=== PATIENT | male | born 1960 | race African-American/Black ===

== ENCOUNTER 2016-08-28 10:38 | Inpatient (IN) | payer OTHER ==
[2016-08-28 10:53] VITALS: BMI 23.7
--- NOTE | 2016-08-28 12:01 | PDOC ---
History of Present Illness - General Chief Complaint: Edema Stated Complaint: SWOLLEN LT LEG/FOOT Time Seen by Provider: 08/28/16 11:45 History Source: Patient Exam Limitations: No Limitations - History of Present Illness Initial Comments: CHIEF COMPLAINT: 56 y/o afebrile male with no significant PMH (Poor medical care; unknown last seen by doctor) c/o worsening left toe and leg swelling over the past 1 week. HISTORY OF PRESENT ILLNESS: The patient states he had a blister on the tip of his left big toe that popped. He has been soaking it, cleaning it and keeping it covered. However, about 1 week ago the foot started getting swollen and today it's up his entire lower left leg. He also admits to no feeling at the tip of his affected toe. He denies f/c, n/v/d, CP, SOB, abd pain, back pain, hematuria, dysuria, difficulty walking. Vital signs on arrival are notable for pulse of 97. REVIEW OF SYSTEMS: GENERAL/CONSTITUTIONAL: No fever/chills. No weakness. No weight change. HEAD, EYES, EARS, NOSE AND THROAT: No change in vision. No ear pain or discharge. No sore throat. CARDIOVASCULAR: No chest pain or shortness of breath. RESPIRATORY: No cough, wheezing, or hemoptysis. GASTROINTESTINAL: No abd pain, nausea, vomiting, diarrhea. GENITOURINARY: No dysuria, frequency, or change in urination. MUSCULOSKELETAL: +left big toe pain and swelling. +left leg swelling. No neck or back pain. SKIN: No rash or easy bruising. NEUROLOGIC: No headache, vertigo, loss of consciousness, or loss of sensation. PHYSICAL EXAM: GENERAL: The patient is awake, alert, and fully oriented, in no acute distress. He is well appearing and ambulatory. HEAD: Normal with no signs of trauma. ENT: Pupils equal, round and reactive to light, extraocular movements intact, sclera anicteric, conjunctiva clear. Neck supple. EXTREMITIES: Normal range of motion. Left foot and lower extremity up to left knee is moderately edematous as compared to right leg with 2+ pitting edema. The affected leg is warm and the affected left foot is erythematous and warm with 2+ dorsalis pedis pulse. THe tip of left first toe is necrotic and without sensation to touch. FROM of toes and leg. No streaking. No calf pain. NEUROLOGICAL: Normal speech, normal gait. CN II-XII grossly intact. PSYCH: Normal mood, normal affect. SKIN: Warm, dry, normal turgor, no rashes or lesions noted. Past History - Past Medical History Allergies/Adverse Reactions: Allergies Allergy/AdvReac Type Severity Reaction Status Date / Time No Known Allergies Allergy Verified 08/28/16 10:47 Other medical history: denies - Psycho/Social/Smoking Cessation Hx Suicidal Ideation: No Smoking History: Never smoked *Physical Exam - Vital Signs Last Vital Signs Temp Pulse Resp BP Pulse Ox 98.2 F 97 H 16 175/102 98 08/28/16 10:48 08/28/16 10:48 08/28/16 10:48 08/28/16 10:48 08/28/16 10:48 ED Treatment Course - LABORATORY CBC & Chemistry Diagram: 08/28/16 12:17 08/28/16 12:17 - RADIOLOGY Radiology Studies Ordered: Category Date Time Status TOE(S) LEFT [RAD] Stat Radiology 08/28/16 11:55 Ordered Medical Decision Making - Medical Decision Making A/P: 56 y/o male with left LE cellulitis with possible left toe necrosis. Plan is as follows: 1. Labs 2. Xray r/o osteomyelitis. Glucose = 377. Ordered IV fluids Xray left toe IMPRESSION: No acute bony abnormalities are seen. No evidence of bony destructive changes. No radiopaque foreign body, air is seen in the soft tissues. Started the patient on IV zosyn Ordered CRP and ESR Will admit for hyperglycemia, necrotic toe (will most likely lose). Paged Dr. Felder as the patient has no PCP. The patient has not seen a doctor in a "very long time". Spoke with Dr. Felder and she accepts admission. Wants consults with Dr. jaime and Dr. Cedeno. Pt made aware of the plan. *DC/Admit/Observation/Transfer Diagnosis at time of Disposition: Toe infection, Gangrenous toe, Hyperglycemia Cellulitis Qualifiers: Site of cellulitis: extremity Site of cellulitis of extremity: lower extremity Laterality: left Qualified Code(s): L03.116 - Cellulitis of left lower limb - Discharge Dispostion Condition at time of disposition: Stable Admit: Yes
--- NOTE | 2016-08-28 12:02 | PDOC ---
*Physical Exam - Vital Signs Last Vital Signs Temp Pulse Resp BP Pulse Ox 98.2 F 97 H 16 175/102 98 08/28/16 10:48 08/28/16 10:48 08/28/16 10:48 08/28/16 10:48 08/28/16 10:48 - Physical Exam Comments: 08/28/16 12:00 The patient was examined by [BRIGETTE Browning] under my direct supervision. I personally evaluated the patient. I concur with the above findings and the plan of care. ED Treatment Course - LABORATORY CBC & Chemistry Diagram: 08/29/16 07:00 08/29/16 07:00 *DC/Admit/Observation/Transfer Diagnosis at time of Disposition: Toe infection, Cellulitis, Gangrenous toe, Hyperglycemia - Discharge Dispostion Disposition: HOME Condition at time of disposition: Fair - Prescriptions
[2016-08-28 12:46] LABS: BASOPHIL 0.8 % (0-2.0); EOSINOPHIL 1.2 % (0-4.5); MCH 26.5 pg (25.7-33.7); MCHC 32.7 g/dl (32.0-35.9); MEAN CELL VOLUME 80.9 fl (80-96); MEAN PLT VOLUME 7.4 fl (7.5-11.1); PLATELET COUNT 300 K/MM3 (134-434); RDW 12.3 % (11.9-15.9); WHITE BLOOD COUNT 7.8 K/mm3 (4.0-10.0)
[2016-08-28 13:12] LABS: ALK PHOS 98 U/L (45-117); ANION GAP 9 (8-16); BILIRUBIN,TOTAL 0.4 mg/dL (0.2-1.0); CO2 28 mmol/L (21-32); CREATININE 0.9 mg/dL (0.7-1.3); SGOT/AST 11 U/L (15-37); SGPT/ALT 18 U/L (12-78)
[2016-08-28 13:33] LABS: GLUCOSE,RANDOM 377 mg/dL (74-106)
[2016-08-28] MEDS ORDERED: SODIUM CHLORIDE 1,000 ML IV STA (13:45)
[2016-08-28] MEDS ORDERED: PIPERACILLIN/TAZOB 3.375 GM/50 ML PRE-DOCKED IVPB ONE (14:09)
[2016-08-28] MEDS ORDERED: PIPERACILLIN/TAZOB 3.375 GM 50 ML IVPB ONE (14:34)
--- NOTE | 2016-08-28 16:34 | CONSULT ---
Consult Consult Specialty:: infectious diseases Referred by:: Reason for Consultation:: toe cellulitis - History of Present Illness Chief Complaint: non healing wound of the toe History of Present Illness: 56ym admitted with blister tip of left big toe over past week was soaking it and has not improved worsening discoloration and spread of infection to leg, present to er for evaluation. patient mentions that he has been observing the progress of the wound for quite some time and was found that the toe is not healing and decided to come to the hospital examining him the patient looks like has very poor blood supply in the foot and i have discussed with him the need for angiogram he has necrotic discoloration on the front of the toe patient currently stable has no other issues - History Source History Provided By: Patient Limitations to Obtaining History: No Limitations - Smoking History Smoking history: Never smoked Home Medications - Allergies Allergies/Adverse Reactions: Allergies Allergy/AdvReac Type Severity Reaction Status Date / Time No Known Allergies Allergy Verified 08/28/16 10:47 - Home Medications Home Medications: Ambulatory Orders NK [No Known Home Medication] 08/28/16 Review of Systems - Review of Systems Constitutional: reports: No Symptoms Eyes: reports: No Symptoms HENT: reports: No Symptoms Neck: reports: No Symptoms Cardiovascular: reports: No Symptoms Respiratory: reports: No Symptoms Gastrointestinal: reports: No Symptoms Genitourinary: reports: No Symptoms Musculoskeletal: reports: Other (non healing ulcer of the great toe) Neurological: reports: No Symptoms Endocrine: reports: No Symptoms Hematology/Lymphatic: reports: No Symptoms Psychiatric: reports: No Symptoms Physical Exam Vital Signs: Vital Signs Temperature 98.3 F 08/28/16 16:13 Pulse Rate 87 08/28/16 16:13 Respiratory Rate 20 08/28/16 16:13 Blood Pressure 128/80 08/28/16 16:13 O2 Sat by Pulse Oximetry (%) 98 08/28/16 16:13 Constitutional: Yes: No Distress, Calm Eyes: Yes: Conjunctiva Clear Neck: Yes: Supple Cardiovascular: Yes: Regular Rate and Rhythm Respiratory: Yes: Regular, CTA Bilaterally Gastrointestinal: Yes: Normal Bowel Sounds, Soft Musculoskeletal: Yes: Other Extremities: Yes: Erythema (of the great toe) Integumentary: Yes: Erythema (of the great toe) Neurological: Yes: Alert, Oriented Psychiatric: Yes: Alert Imaging - Results X-ray: Report Reviewed, Image Reviewed Assessment/Plan - Problems (1) Gangrenous toe Code(s): I96 - GANGRENE, NOT ELSEWHERE CLASSIFIED (2) Hyperglycemia Code(s): R73.9 - HYPERGLYCEMIA, UNSPECIFIED (3) Type 2 diabetes mellitus with diabetic neuropathy, unspecified Code(s): E11.40 - TYPE 2 DIABETES MELLITUS WITH DIABETIC NEUROPATHY, UNSP Cellulitis of the toe Gangrenous toe plan patient needs angio and to see the blood supply abx await for all other reports vascular to evaluate
[2016-08-28] MEDS ORDERED: CLINDAMYCIN HCL 150 MG CAPSULE (FP) ONE (17:21)
[2016-08-28] MEDS: CLINDAMYCIN HCL 150 MG CAPSULE (FP) PO SCH (17:24)
--- NOTE | 2016-08-28 17:32 | CONSULT ---
Consult - Smoking History Smoking history: Never smoked Home Medications - Allergies Allergies/Adverse Reactions: Allergies Allergy/AdvReac Type Severity Reaction Status Date / Time No Known Allergies Allergy Verified 08/28/16 10:47 - Home Medications Home Medications: Ambulatory Orders NK [No Known Home Medication] 08/28/16 Physical Exam Vital Signs: Vital Signs Temperature 98.3 F 08/28/16 16:13 Pulse Rate 87 08/28/16 16:13 Respiratory Rate 20 08/28/16 16:13 Blood Pressure 128/80 08/28/16 16:13 O2 Sat by Pulse Oximetry (%) 98 08/28/16 16:13 Assessment/Plan Vascular Surgery 56 y/o afebrile male with no significant PMH (Poor medical care; unknown last seen by doctor) c/o worsening left toe and leg swelling over the past 1 week. HISTORY OF PRESENT ILLNESS: The patient states he had a blister on the tip of his left big toe that popped. He has been soaking it, cleaning it and keeping it covered. However, about 1 week ago the foot started getting swollen and today it's up his entire lower left leg. He also admits to no feeling at the tip of his affected toe. He denies f/c, n/v/d, CP, SOB, abd pain, back pain, hematuria, dysuria, difficulty walking. PE head - NC/AT Lung - CTA Heart - RRR abd - soft,nt,nd ext - right great toe dry gangrene. no palpable DP pulse. Palpable PT pulse. Palpable popliteal pulse. A/P Right great toe gangrene with dM 1. For angiogram sindy. 2. NPO past midnite. Luis Manuel Ponce DO
[2016-08-28] MEDS: PIPERACILLIN/TAZOB 3.375 GM 50 ML IVPB SCH (18:24)
[2016-08-28] MEDS ORDERED: SODIUM CHLORIDE 0.45% 1,000 ML IV SCH (21:30)
--- NOTE | 2016-08-28 22:56 | CONSULT ---
Consult Consult Specialty:: endocrine/diabetes Referred by:: Reason for Consultation:: diabetes mellitus - History of Present Illness Chief Complaint: high blood sugars History of Present Illness: 56ym admitted with blister tip of left big toe over past week was soaking it and has not improved worsening discoloration and spread of infection to leg, present to er for evaluation.pt states no recent doctor visits,denies any history of medical problems,no blurred vision or weight loss,has elevated blood sugar on blood work requiring admission for diabetes and wound infection. - History Source History Provided By: Patient - Alcohol/Substance Use Hx Alcohol Use: No - Smoking History Smoking history: Never smoked Home Medications - Allergies Allergies/Adverse Reactions: Allergies Allergy/AdvReac Type Severity Reaction Status Date / Time No Known Allergies Allergy Verified 08/28/16 10:47 - Home Medications Home Medications: Ambulatory Orders NK [No Known Home Medication] 08/28/16 Review of Systems - Review of Systems Constitutional: reports: Lethargy Eyes: reports: No Symptoms HENT: reports: No Symptoms Neck: reports: No Symptoms Cardiovascular: reports: No Symptoms Respiratory: reports: No Symptoms Gastrointestinal: reports: No Symptoms Genitourinary: reports: No Symptoms Breasts: reports: No Symptoms Reported Musculoskeletal: reports: Muscle Pain, Muscle Cramps Integumentary: reports: No Symptoms Endocrine: reports: No Symptoms Hematology/Lymphatic: reports: No Symptoms Psychiatric: reports: No Symptoms Physical Exam Vital Signs: Vital Signs Temperature 98.3 F 08/28/16 16:13 Pulse Rate 90 08/28/16 18:05 Respiratory Rate 20 08/28/16 18:05 Blood Pressure 164/98 08/28/16 18:05 O2 Sat by Pulse Oximetry (%) 96 08/28/16 18:05 Constitutional: Yes: Calm Eyes: Yes: EOM Intact HENT: Yes: Normocephalic Neck: Yes: Trachea Midline Cardiovascular: Yes: Regular Rate and Rhythm Respiratory: Yes: CTA Bilaterally Gastrointestinal: Yes: Normal Bowel Sounds ...Rectal Exam: Yes: Deferred Renal/: Yes: WNL Breast(s): Yes: WNL Musculoskeletal: Yes: WNL Edema: Yes Edema: LLE: 1+ Integumentary: Yes: Onychomycosis Wound/Incision: Yes: Reddened, Unapproximated Neurological: Yes: Alert, Oriented ...Motor Strength: LLE Problem List - Problems (1) Gangrenous toe Code(s): I96 - GANGRENE, NOT ELSEWHERE CLASSIFIED (2) Hyperglycemia Code(s): R73.9 - HYPERGLYCEMIA, UNSPECIFIED (3) Type 2 diabetes mellitus with diabetic neuropathy, unspecified Code(s): E11.40 - TYPE 2 DIABETES MELLITUS WITH DIABETIC NEUROPATHY, UNSP Assessment/Plan Current Active Problems Cellulitis (Acute) Gangrenous toe (Acute) Hyperglycemia (Acute) Toe infection (Acute) Abnormal Lab Results 08/28/16 08/28/16 08/28/16 12: 12: 14:21 Hgb 10.6 L Hct 32.4 L MPV 7.4 L ESR 79 H Random Glucose 377 H* AST 11 L C-Reactive Protein Albumin 3.0 L 08/28/16 15:30 Hgb Hct MPV ESR Random Glucose AST C-Reactive Protein 4.7 H Albumin Abnormal Lab Results 08/28/16 08/28/16 08/28/16 12: 12:17 14:21 Hgb 10.6 L Hct 32.4 L MPV 7.4 L ESR 79 H Random Glucose 377 H* AST 11 L C-Reactive Protein Albumin 3.0 L 08/28/16 15:30 Hgb Hct MPV ESR Random Glucose AST C-Reactive Protein 4.7 H Albumin Current Medications Generic Name Dose Route Start Last Admin Trade Name Julianoq PRN Reason Stop Dose Admin Clindamycin HCl 300 mg 08/28/16 18:00 08/28/16 17:24 Cleocin - PO 300 mg Q6HPO SANGEETHA Administration Piperacillin Sod/Tazobactam Sod 50 mls @ 100 mls/hr 08/28/16 18:00 08/28/16 18: 24 Zosyn 3.375gm Ivpb (Pre-Docked) IVPB Not Given Q8H-IV SANGEETHA Protocol Sodium Chloride 1,000 mls @ 42 mls/hr 08/28/16 21:30 1/2 Normal Saline IV ASDIR SANGEETHA Insulin Aspart 1 vial 08/28/16 22:00 Novolog Vial Sliding Scale - SQ ACHS SANGEETHA Protocol plan : iddm uncontrolled new diagnosis bgm qid novolog levemir 15 units am daily and 10 units hs ck hba1c
[2016-08-28] MEDS: INSULIN SLIDING SCALE (NOVOLOG) 1 VIAL SQ SCH (23:55)
[2016-08-29] MEDS: CLINDAMYCIN HCL 150 MG CAPSULE (FP) PO SCH ×4 (00:15→17:08)
[2016-08-29] MEDS ORDERED: ACETAMINOPHEN 325 MG TABLET (FP) PO PRN (00:33)
[2016-08-29] MEDS: PIPERACILLIN/TAZOB 3.375 GM 50 ML IVPB SCH ×3 (02:02→17:08)
[2016-08-29] MEDS: INSULIN SLIDING SCALE (NOVOLOG) 1 VIAL SQ SCH ×3 (06:38→21:36)
[2016-08-29] MEDS ORDERED: INSULIN DETEMIR 100 UNITS/ML MDV SQ SCH ×2 (07:00→22:00)
[2016-08-29 07:58] LABS: BASOPHIL 0.8 % (0-2.0); EOSINOPHIL 1.7 % (0-4.5); MCH 26.7 pg (25.7-33.7); MCHC 32.8 g/dl (32.0-35.9); MEAN CELL VOLUME 81.5 fl (80-96); MEAN PLT VOLUME 7.5 fl (7.5-11.1); NEUTROPHILS 56.2 % (42.8-82.8); PLATELET COUNT 273 K/MM3 (134-434); RDW 12.4 % (11.9-15.9); WHITE BLOOD COUNT 8.6 K/mm3 (4.0-10.0)
[2016-08-29 08:30] LABS: ALBUMIN 2.4 g/dl (3.4-5.0); ANION GAP 7 (8-16); BILIRUBIN,TOTAL 0.4 mg/dL (0.2-1.0); CALCIUM 8.3 mg/dL (8.5-10.1); CO2 29 mmol/L (21-32); CREATININE 0.8 mg/dL (0.7-1.3); GLUCOSE,RANDOM 206 mg/dL (74-106); SGOT/AST 10 U/L (15-37); SGPT/ALT 15 U/L (12-78)
[2016-08-29 08:32] LABS: ALK PHOS 75 U/L (45-117); TOT PROT 5.9 g/dl (6.4-8.2)
[2016-08-29] MEDS ORDERED: LIDOCAINE HCL 1%, 10 MG/ML (20ML VIAL) ONE (08:54)
[2016-08-29] MEDS ORDERED: HEPARIN NA (PORCINE) 5,000 UNITS/ML 1ML VIAL ONE ×3 (08:54→10:55)
[2016-08-29] MEDS ORDERED: MIDAZOLAM HCL 2 MG/2 ML SINGLE DOSE VIAL ONE ×2 (09:27→09:29)
[2016-08-29] MEDS ORDERED: ceFAZolin SODIUM 1 GM VIAL ONE (09:33)
[2016-08-29] MEDS ORDERED: LIDOCAINE HCL 1%, 10 MG/ML (50 mL VIAL) IJ ONE (09:37)
[2016-08-29] MEDS ORDERED: NITROGLYCERIN 50 MG/10 ML VIAL IVPB ONE (09:56)
[2016-08-29] MEDS ORDERED: CLOPIDOGREL BISULFATE 75 MG TABLET (FP) PO SCH (11:45)
--- NOTE | 2016-08-29 11:46 | OP ---
Operative Note - Note: Operative Date: 08/29/16 Pre-Operative Diagnosis: Left great toe gangrene Operation: Aortogram, LLE angiogram, Posterior tibial artery atherectomy with angioplasty Findings: Severe DM One vessel runoff into foot. PT with 80% stenosis above ankle. Post-Operative Diagnosis: Same as Pre-op Surgeon: Luis Manuel Ponce Anesthesia: Fractional Estimated Blood Loss (mls): 75 Operative Report Dictated: Yes
--- NOTE | 2016-08-29 11:49 | PN ---
Progress Note (short form) - Note Progress Note: Vascular Surgery S/P atherectomy of posterior tibial artery Started on plavix. Due to pt's DM -- pt only has one vessel going into his foot. Thats his poterior tibial artery - supplying his heel and plantar foot. He does not have any direct flow to his forefoot. Only collateral circulation. Pt now has palpable PT pulse. Will need bacitracin to wound daily. Will follow up in office and will set pt up for hypberbaric oxygen therapy. Luis Manuel krause DO
[2016-08-29] MEDS ORDERED: ONDANSETRON 4 MG/2 ML VIAL IVPUSH PRN (11:50)
[2016-08-29] MEDS ORDERED: oxyCODONE HCL 5 MG TABLET ONE (12:55)
[2016-08-29] MEDS: SODIUM CHLORIDE 0.45% 1,000 ML IV SCH ×2 (13:00→16:16)
--- NOTE | 2016-08-29 14:01 | PN ---
Progress Note, Physician History of Present Illness: stable patient underwent angio and atherectomy - Current Medication List Current Medications: Active Medications Acetaminophen (Tylenol -) 650 mg PO Q6H PRN PRN Reason: FEVER OR PAIN Bacitracin (Bacitracin -) 1 applic TP DAILY [facility] Clindamycin HCl (Cleocin -) 300 mg PO Q6HPO SANGEETHA Clopidogrel Bisulfate (Plavix -) 75 mg PO DAILY SANGEETHA Fentanyl (Sublimaze Injection -) 50 mcg IVPUSH [id number] PRN PRN Reason: PAIN Stop: 09/01/16 11:51 Lactated Ringer's (Lactated Ringers Solution) 1,000 mls @ 125 mls/hr IV ASDIR SANGEETHA Sodium Chloride (1/2 Normal Saline) 1,000 mls @ 42 mls/hr IV ASDIR SANGEETHA Piperacillin Sod/Tazobactam Sod (Zosyn 3.375gm Ivpb (Pre-Docked)) 50 mls @ 100 mls/hr IVPB Q8H-IV SANGEETHA PRN Reason: Protocol Insulin Aspart (Novolog Vial Sliding Scale -) 1 vial SQ ACHS SANGEETHA PRN Reason: Protocol Insulin Detemir (Levemir Vial) 10 units SQ HS SANGEETHA Insulin Detemir (Levemir Vial) 15 units SQ AM SANGEETHA Ondansetron HCl (Zofran Injection) 4 mg IVPUSH Q6H PRN PRN Reason: NAUSEA AND/OR VOMITING Stop: 08/29/16 17:51 - Objective Vital Signs: Vital Signs Temperature 98.1 F 08/29/16 13:00 Pulse Rate 81 08/29/16 13:00 Respiratory Rate 12 08/29/16 13:00 Blood Pressure 152/81 08/29/16 13:00 O2 Sat by Pulse Oximetry (%) 100 08/29/16 13:00 Constitutional: Yes: No Distress, Calm Cardiovascular: Yes: Regular Rate and Rhythm Respiratory: Yes: Regular, CTA Bilaterally Gastrointestinal: Yes: Normal Bowel Sounds, Soft Musculoskeletal: Yes: WNL Extremities: Yes: Other Neurological: Yes: Alert, Oriented Psychiatric: Yes: Alert Labs: CBC, BMP 08/29/16 07:00 08/29/16 07:00 Assessment/Plan - Problems (1) Gangrenous toe Code(s): I96 - GANGRENE, NOT ELSEWHERE CLASSIFIED (2) Hyperglycemia Code(s): R73.9 - HYPERGLYCEMIA, UNSPECIFIED (3) Type 2 diabetes mellitus with diabetic neuropathy, unspecified Code(s): E11.40 - TYPE 2 DIABETES MELLITUS WITH DIABETIC NEUROPATHY, UNSP Cellulitis of the toe Gangrenous toe plan continue abx rest as per team
--- NOTE | 2016-08-29 16:18 | HP ---
Admitting History and Physical - Smoking History Smoking history: Never smoked - Alcohol/Substance Use Hx Alcohol Use: No Home Medications - Allergies Allergies/Adverse Reactions: Allergies Allergy/AdvReac Type Severity Reaction Status Date / Time No Known Allergies Allergy Verified 08/28/16 10:47 - Home Medications Home Medications: Ambulatory Orders NK [No Known Home Medication] 08/28/16 Physical Examination Vital Signs: Vital Signs Temperature 97.6 F 08/29/16 14:05 Pulse Rate 89 08/29/16 14:05 Respiratory Rate 18 08/29/16 14:05 Blood Pressure 156/86 08/29/16 14:05 O2 Sat by Pulse Oximetry (%) 100 08/29/16 13:00 Labs: CBC, BMP 08/29/16 07:00 08/29/16 07:00
[2016-08-29] MEDS ORDERED: INSULIN (NOVOLOG) ASPART 100 UNITS/ML 10ML VIAL ONE ×2 (16:23→21:34)
[2016-08-29] MEDS: ACETAMINOPHEN 325 MG TABLET (FP) PO PRN (16:24)
[2016-08-29] MEDS: INSULIN DETEMIR 100 UNITS/ML MDV SQ SCH (21:35)
[2016-08-30] MEDS: CLINDAMYCIN HCL 150 MG CAPSULE (FP) PO SCH ×4 (00:01→17:44)
[2016-08-30] MEDS: PIPERACILLIN/TAZOB 3.375 GM 50 ML IVPB SCH ×3 (02:06→17:44)
[2016-08-30] MEDS: INSULIN SLIDING SCALE (NOVOLOG) 1 VIAL SQ SCH ×4 (06:14→21:26)
[2016-08-30] MEDS: INSULIN DETEMIR 100 UNITS/ML MDV SQ SCH ×2 (06:15→21:26)
[2016-08-30] MEDS ORDERED: INSULIN (NOVOLOG) ASPART 100 UNITS/ML 10ML VIAL ONE (06:21)
[2016-08-30] MEDS: BACITRACIN 30 GM TUBE TOPICAL OINTMENT TP SCH (09:12)
[2016-08-30] MEDS: CLOPIDOGREL BISULFATE 75 MG TABLET (FP) PO SCH (09:13)
--- NOTE | 2016-08-30 11:26 | OP ---
DATE OF OPERATION: 08/29/2016 PREOPERATIVE DIAGNOSIS: Left great toe ulcer. POSTOPERATIVE DIAGNOSIS: Left great toe ulcer. PROCEDURE: Aortogram, left lower extremity angiogram, posterior tibial artery athrectomy with angioplasty. SURGEON: Luis Manuel Faith DO ANESTHESIA: Fractional. BLOOD LOSS: 100 mL. INDICATIONS: The patient is a 56-year-old male who comes in with a [id number] of left great toe gangrene. He says he suffers from diabetes, and his shoe created this wound. On examination, he did not have a palpable DP pulse but has a faint PT pulse. It was decided that he would need an angiogram. The patient was consented for the procedure understanding all risks, benefits, and alternatives and then taken to the operating room. DESCRIPTION OF PROCEDURE: Once in the operating room, he was laid on the operating room table in a supine manner. The area of the right groin was prepped and draped in a sterile surgical manner. We then injected 10 mL of lidocaine 2% over the right common femoral artery. We then took our micropuncture needle and punctured the right common femoral artery, and a micropuncture wire was inserted. Micropuncture sheath was inserted, and a traditional 5-Afghan sheath was inserted. We then placed a 0.035 floppy guidewire up into the aorta followed by an Omni Flush catheter. We then shot an aortogram via hand injection showing that the aorta and the iliac arteries were without any disease. We then placed a 0.035 stiff guidewire up and over to the left common femoral artery and our Omni Flush catheter followed. We then shot an angiogram of the left lower extremity via hand injection showing that the common femoral artery, the profunda, and the SFA were patent. The popliteal artery stent was patent. The anterior tibial artery was patent at the takeoff but then was occluded and never came back in the foot. The posterior tibial artery was the main runoff of the patient down into the foot above the ankle just about an 85% stenosis of the posterior tibial artery. At this point, we placed a 0.035 stiff guidewire down into the SFA. We withdrew the Omni Flush catheter and placed a 6 x 45 crossover sheath. Then 5000 units of IV heparin was administered. Using our Quick-Cross catheter, we were able to navigate our 0.035 stiff guidewire down into the posterior tibial artery and across our lesion. We then exchanged for a Viper Wire. We then used a CSI athrectomy device and performed athrectomy of the distal posterior tibial artery by taking multiple passes with the athrectomy device. Once completed, we shot an angiogram again showing that the 85% stenosis had gotten better; however, there was still some stenosis. At this point, we went ahead and used a 2.5 x 8 NanoCross balloon and performed angioplasty of the posterior tibial artery. Completion angiogram now showed that the popliteal tibial artery was patent and went all the way into the foot and into the plantar area. That is the patient's main runoff. At this point, there was no more intervention needed. We brought our sheath up and over, and StarClose device was successfully deployed in the right common femoral artery. The area was wet and dried, and Dermabond was placed. The patient tolerated the procedure with no complication. The patient was transferred to the PACU in stable condition. LUIS MANUEL FAITH DO [id number]
--- NOTE | 2016-08-30 15:52 | PN ---
Progress Note, Physician History of Present Illness: patient doing much better leg improving throbbing pain - Current Medication List Current Medications: Active Medications Acetaminophen (Tylenol -) 650 mg PO Q6H PRN PRN Reason: FEVER OR PAIN Last Admin: 08/29/16 16:24 Dose: 650 mg Bacitracin (Bacitracin -) 1 applic TP DAILY [facility] Last Admin: 08/30/16 09:12 Dose: 1 applic Clindamycin HCl (Cleocin -) 300 mg PO Q6HPO [facility] Last Admin: 08/30/16 12:34 Dose: 300 mg Clopidogrel Bisulfate (Plavix -) 75 mg PO DAILY [facility] Last Admin: 08/30/16 09:13 Dose: 75 mg Fentanyl (Sublimaze Injection -) 50 mcg IVPUSH [id number] PRN PRN Reason: PAIN Stop: 09/01/16 11:51 Last Admin: 08/29/16 12:10 Dose: 50 mcg Lactated Ringer's (Lactated Ringers Solution) 1,000 mls @ 125 mls/hr IV ASDIR SANGEETHA Sodium Chloride (1/2 Normal Saline) 1,000 mls @ 42 mls/hr IV ASDIR [facility] Last Admin: 08/29/16 16:16 Dose: 42 mls/hr Piperacillin Sod/Tazobactam Sod (Zosyn 3.375gm Ivpb (Pre-Docked)) 50 mls @ 100 mls/hr IVPB Q8H-IV SANGEETHA PRN Reason: Protocol Last Admin: 08/30/16 09:12 Dose: 100 mls/hr Insulin Aspart (Novolog Vial Sliding Scale -) 1 vial SQ ACHS [facility] PRN Reason: Protocol Last Admin: 08/30/16 11:45 Dose: 4 units Insulin Detemir (Levemir Vial) 10 units SQ HS [facility] Last Admin: 08/29/16 21:35 Dose: 10 units Insulin Detemir (Levemir Vial) 15 units SQ AM [facility] Last Admin: 08/30/16 06:15 Dose: 15 units - Objective Vital Signs: Vital Signs Temperature 97.9 F 08/30/16 07:50 Pulse Rate 86 08/30/16 07:50 Respiratory Rate 18 08/30/16 07:50 Blood Pressure 140/78 08/30/16 07:50 O2 Sat by Pulse Oximetry (%) 98 08/30/16 09:00 Constitutional: Yes: No Distress, Calm Cardiovascular: Yes: Regular Rate and Rhythm Respiratory: Yes: Regular, CTA Bilaterally Gastrointestinal: Yes: Normal Bowel Sounds, Soft Musculoskeletal: Yes: WNL Extremities: Yes: Other Integumentary: Yes: Erythema (nearly resolved) Wound/Incision: Yes: Dressing Dry and Intact Neurological: Yes: Alert, Oriented Psychiatric: Yes: Alert, Oriented Labs: CBC, BMP 08/29/16 07:00 08/29/16 07:00 Assessment/Plan - Problems (1) Gangrenous toe Code(s): I96 - GANGRENE, NOT ELSEWHERE CLASSIFIED (2) Hyperglycemia Code(s): R73.9 - HYPERGLYCEMIA, UNSPECIFIED (3) Type 2 diabetes mellitus with diabetic neuropathy, unspecified Code(s): E11.40 - TYPE 2 DIABETES MELLITUS WITH DIABETIC NEUROPATHY, UNSP Cellulitis of the toe Gangrenous toe plan continue abx rest as per team will stop zosyn tomorrow if the wound keeps on looking better
--- NOTE | 2016-08-30 20:07 | PN ---
Progress Note, Physician - Current Medication List Current Medications: Active Medications Acetaminophen (Tylenol -) 650 mg PO Q6H PRN PRN Reason: FEVER OR PAIN Last Admin: 08/29/16 16:24 Dose: 650 mg Bacitracin (Bacitracin -) 1 applic TP DAILY [facility] Last Admin: 08/30/16 09:12 Dose: 1 applic Clindamycin HCl (Cleocin -) 300 mg PO Q6HPO [facility] Last Admin: 08/30/16 17:44 Dose: 300 mg Clopidogrel Bisulfate (Plavix -) 75 mg PO DAILY [facility] Last Admin: 08/30/16 09:13 Dose: 75 mg Fentanyl (Sublimaze Injection -) 50 mcg IVPUSH [id number] PRN PRN Reason: PAIN Stop: 09/01/16 11:51 Last Admin: 08/29/16 12:10 Dose: 50 mcg Lactated Ringer's (Lactated Ringers Solution) 1,000 mls @ 125 mls/hr IV ASDIR [facility] Piperacillin Sod/Tazobactam Sod (Zosyn 3.375gm Ivpb (Pre-Docked)) 50 mls @ 100 mls/hr IVPB Q8H-IV [facility] PRN Reason: Protocol Last Admin: 08/30/16 17:44 Dose: 100 mls/hr Insulin Aspart (Novolog Vial Sliding Scale -) 1 vial SQ ACHS [facility] PRN Reason: Protocol Last Admin: 08/30/16 16:29 Dose: 10 units Insulin Detemir (Levemir Vial) 10 units SQ HS [facility] Last Admin: 08/29/16 21:35 Dose: 10 units Insulin Detemir (Levemir Vial) 15 units SQ AM [facility] Last Admin: 08/30/16 06:15 Dose: 15 units - Objective Vital Signs: Vital Signs Temperature 97.8 F 08/30/16 19:02 Pulse Rate 88 08/30/16 19:02 Respiratory Rate 20 08/30/16 19:02 Blood Pressure 148/92 08/30/16 19:02 O2 Sat by Pulse Oximetry (%) 98 08/30/16 09:00 Labs: CBC, BMP 08/29/16 07:00 08/29/16 07:00
[2016-08-30] MEDS: ACETAMINOPHEN 325 MG TABLET (FP) PO PRN (21:19)
[2016-08-31] MEDS: PIPERACILLIN/TAZOB 3.375 GM 50 ML IVPB SCH ×2 (01:07→09:21)
[2016-08-31] MEDS: CLINDAMYCIN HCL 150 MG CAPSULE (FP) PO SCH ×4 (01:07→17:33)
[2016-08-31] MEDS ORDERED: INSULIN (NOVOLOG) ASPART 100 UNITS/ML 10ML VIAL ONE ×2 (06:01→21:26)
[2016-08-31] MEDS: INSULIN SLIDING SCALE (NOVOLOG) 1 VIAL SQ SCH ×4 (06:06→21:28)
[2016-08-31] MEDS: INSULIN DETEMIR 100 UNITS/ML MDV SQ SCH (06:06)
[2016-08-31] MEDS: CLOPIDOGREL BISULFATE 75 MG TABLET (FP) PO SCH (09:21)
[2016-08-31] MEDS: ACETAMINOPHEN 325 MG TABLET (FP) PO PRN (10:09)
[2016-08-31] MEDS: BACITRACIN 30 GM TUBE TOPICAL OINTMENT TP SCH (10:16)
--- NOTE | 2016-08-31 10:19 | PN ---
Progress Note (short form) - Note Progress Note: Vascular Surgery Pt seen and examined. S/P atherectomy post tibial artery Palpable PT pulse. only one vessel runoff. Gangrene great toe. Bacitracin to toe daily. Needs wound care follow up [phone] -- make appt prior to DC Will need Hypberbaric O2 therapy as well as outpt. Question of whether pt needs to go home on antibiotics. Luis Manuel krause DO
--- NOTE | 2016-08-31 14:49 | PN ---
Progress Note, Physician History of Present Illness: patient doing well no issues except hip pain - Current Medication List Current Medications: Active Medications Acetaminophen (Tylenol -) 650 mg PO Q6H PRN PRN Reason: FEVER OR PAIN Last Admin: 08/31/16 10:09 Dose: 650 mg Bacitracin (Bacitracin -) 1 applic TP DAILY [facility] Last Admin: 08/31/16 10:16 Dose: 1 applic Clindamycin HCl (Cleocin -) 300 mg PO Q6HPO [facility] Last Admin: 08/31/16 12:48 Dose: 300 mg Clopidogrel Bisulfate (Plavix -) 75 mg PO DAILY [facility] Last Admin: 08/31/16 09:21 Dose: 75 mg Fentanyl (Sublimaze Injection -) 50 mcg IVPUSH [id number] PRN PRN Reason: PAIN Stop: 09/01/16 11:51 Last Admin: 08/29/16 12:10 Dose: 50 mcg Lactated Ringer's (Lactated Ringers Solution) 1,000 mls @ 125 mls/hr IV ASDIR [facility] Piperacillin Sod/Tazobactam Sod (Zosyn 3.375gm Ivpb (Pre-Docked)) 50 mls @ 100 mls/hr IVPB Q8H-IV [facility] PRN Reason: Protocol Last Admin: 08/31/16 09:21 Dose: 100 mls/hr Insulin Aspart (Novolog Vial Sliding Scale -) 1 vial SQ ACHS [facility] PRN Reason: Protocol Last Admin: 08/31/16 12:04 Dose: 6 units Insulin Detemir (Levemir Vial) 10 units SQ HS [facility] Last Admin: 08/30/16 21:26 Dose: 10 units Insulin Detemir (Levemir Vial) 15 units SQ AM [facility] Last Admin: 08/31/16 06:06 Dose: 15 units Ketorolac Tromethamine (Toradol Injection -) 30 mg IVPB Q8H PRN Stop: 09/05/16 14:21 - Objective Vital Signs: Vital Signs Temperature 97.9 F 08/31/16 14:00 Pulse Rate 86 08/31/16 14:00 Respiratory Rate 18 08/31/16 14:00 Blood Pressure 150/94 08/31/16 08:38 O2 Sat by Pulse Oximetry (%) 98 08/31/16 09:00 Constitutional: Yes: No Distress, Calm Neck: Yes: Supple, Trachea Midline Cardiovascular: Yes: Regular Rate and Rhythm Respiratory: Yes: Regular, CTA Bilaterally Gastrointestinal: Yes: Normal Bowel Sounds, Soft Musculoskeletal: Yes: Other (joint pain) Extremities: Yes: WNL Neurological: Yes: Alert, Oriented Psychiatric: Yes: Alert Labs: CBC, BMP 08/29/16 07:00 08/29/16 07:00 Assessment/Plan - Problems (1) Gangrenous toe Code(s): I96 - GANGRENE, NOT ELSEWHERE CLASSIFIED (2) Hyperglycemia Code(s): R73.9 - HYPERGLYCEMIA, UNSPECIFIED (3) Type 2 diabetes mellitus with diabetic neuropathy, unspecified Code(s): E11.40 - TYPE 2 DIABETES MELLITUS WITH DIABETIC NEUROPATHY, UNSP Cellulitis of the toe Gangrenous toe plan continue abx rest as per team will stop iv abx continue clinda for another 3 more days wound care
[2016-08-31] MEDS: KETOROLAC TROMETHAMINE 30 MG/1 ML VIAL IVPB PRN (14:51)
[2016-08-31] MEDS ORDERED: INSULIN DETEMIR 100 UNITS/ML MDV SQ SCH (22:00)
--- NOTE | 2016-08-31 23:47 | PN ---
Progress Note, Physician - Current Medication List Current Medications: Active Medications Acetaminophen (Tylenol -) 650 mg PO Q6H PRN PRN Reason: FEVER OR PAIN Last Admin: 08/31/16 10:09 Dose: 650 mg Bacitracin (Bacitracin -) 1 applic TP DAILY [facility] Last Admin: 08/31/16 10:16 Dose: 1 applic Clindamycin HCl (Cleocin -) 300 mg PO Q6HPO [facility] Last Admin: 08/31/16 17:33 Dose: 300 mg Clopidogrel Bisulfate (Plavix -) 75 mg PO DAILY [facility] Last Admin: 08/31/16 09:21 Dose: 75 mg Fentanyl (Sublimaze Injection -) 50 mcg IVPUSH [id number] PRN PRN Reason: PAIN Stop: 09/01/16 11:51 Last Admin: 08/29/16 12:10 Dose: 50 mcg Lactated Ringer's (Lactated Ringers Solution) 1,000 mls @ 125 mls/hr IV ASDIR [facility] Insulin Aspart (Novolog Vial Sliding Scale -) 1 vial SQ ACHS [facility] PRN Reason: Protocol Last Admin: 08/31/16 21:28 Dose: 6 units Insulin Detemir (Levemir Vial) 15 units SQ HS [facility] Last Admin: 08/31/16 21:28 Dose: 15 units Insulin Detemir (Levemir Vial) 25 units SQ AM [facility] Ketorolac Tromethamine (Toradol Injection -) 30 mg IVPB Q8H PRN Stop: 09/05/16 14:21 Last Admin: 08/31/16 14:51 Dose: 30 mg - Objective Vital Signs: Vital Signs Temperature 97.8 F 08/31/16 22:00 Pulse Rate 92 H 08/31/16 22:00 Respiratory Rate 20 08/31/16 22:00 Blood Pressure 152/90 08/31/16 22:00 O2 Sat by Pulse Oximetry (%) 98 08/31/16 21:00 Labs: CBC, BMP 08/29/16 07:00 08/29/16 07:00
[2016-09-01] MEDS: CLINDAMYCIN HCL 150 MG CAPSULE (FP) PO SCH ×4 (00:09→17:45)
[2016-09-01] MEDS: INSULIN SLIDING SCALE (NOVOLOG) 1 VIAL SQ SCH ×4 (06:02→16:29)
[2016-09-01] MEDS ORDERED: INSULIN DETEMIR 100 UNITS/ML MDV SQ SCH (07:00)
[2016-09-01] MEDS: LACTATED RINGERS SOLUTION 1,000 ML IV SCH ×2 (07:36→15:26)
[2016-09-01] MEDS: CLOPIDOGREL BISULFATE 75 MG TABLET (FP) PO SCH (09:08)
[2016-09-01] MEDS: BACITRACIN 30 GM TUBE TOPICAL OINTMENT TP SCH (09:08)
[2016-09-01 10:30] VITALS: BP 134/77
[2016-09-01] MEDS: KETOROLAC TROMETHAMINE 30 MG/1 ML VIAL IVPB PRN (12:44)
[2016-09-01 14:41] VITALS: PULSE 85; TEMP 97.8
--- NOTE | 2016-09-01 15:14 | PN ---
Progress Note, Physician History of Present Illness: patient doing well no issues says leg hurting throbbing pain - Current Medication List Current Medications: Active Medications Acetaminophen (Tylenol -) 650 mg PO Q6H PRN PRN Reason: FEVER OR PAIN Last Admin: 08/31/16 10:09 Dose: 650 mg Bacitracin (Bacitracin -) 1 applic TP DAILY [facility] Last Admin: 09/01/16 09:08 Dose: 1 applic Clindamycin HCl (Cleocin -) 300 mg PO Q6HPO [facility] Last Admin: 09/01/16 11:06 Dose: 300 mg Clopidogrel Bisulfate (Plavix -) 75 mg PO DAILY [facility] Last Admin: 09/01/16 09:08 Dose: 75 mg Lactated Ringer's (Lactated Ringers Solution) 1,000 mls @ 125 mls/hr IV ASDIR [facility] Last Admin: 09/01/16 07:36 Dose: Not Given Insulin Aspart (Novolog Vial Sliding Scale -) 1 vial SQ ACHS [facility] PRN Reason: Protocol Last Admin: 09/01/16 11:10 Dose: 4 units Insulin Detemir (Levemir Vial) 15 units SQ HS [facility] Last Admin: 08/31/16 21:28 Dose: 15 units Insulin Detemir (Levemir Vial) 25 units SQ AM [facility] Last Admin: 09/01/16 06:02 Dose: 25 units Ketorolac Tromethamine (Toradol Injection -) 30 mg IVPB Q8H PRN Stop: 09/05/16 14:21 Last Admin: 09/01/16 12:44 Dose: 30 mg - Objective Vital Signs: Vital Signs Temperature 97.8 F 09/01/16 14:00 Pulse Rate 85 09/01/16 14:00 Respiratory Rate 18 09/01/16 14:00 Blood Pressure 134/77 09/01/16 10:00 O2 Sat by Pulse Oximetry (%) 98 08/31/16 21:00 Constitutional: Yes: No Distress, Calm Cardiovascular: Yes: Regular Rate and Rhythm Respiratory: Yes: Regular, CTA Bilaterally Gastrointestinal: Yes: Normal Bowel Sounds, Soft Musculoskeletal: Yes: WNL Extremities: Yes: Other Integumentary: Yes: Other Neurological: Yes: Alert, Oriented Psychiatric: Yes: Alert Labs: CBC, BMP 08/29/16 07:00 08/29/16 07:00 Assessment/Plan - Problems (1) Gangrenous toe Code(s): I96 - GANGRENE, NOT ELSEWHERE CLASSIFIED (2) Hyperglycemia Code(s): R73.9 - HYPERGLYCEMIA, UNSPECIFIED (3) Type 2 diabetes mellitus with diabetic neuropathy, unspecified Code(s): E11.40 - TYPE 2 DIABETES MELLITUS WITH DIABETIC NEUROPATHY, UNSP Cellulitis of the toe Gangrenous toe plan finish course of clinda patient doing well
== END 2016-09-01 18:30 | disposition home or self-care (01) | DRG 173 ==
LOC: JER 10:38 → JERBED 15:10 → J6S 18:49
PROVIDERS: ADMIT Internal Medicine; ATTEND Internal Medicine
PROC: 04CS3ZZ Extirpation of Matter from Left Posterior Tibial Artery, Percutaneous Approach (ICD-10-PCS; 2016-08-29)
PROC: 3E05317 Introduction of Other Thrombolytic into Peripheral Artery, Percutaneous Approach (ICD-10-PCS; 2016-08-29)
PROC: 047S3ZZ Dilation of Left Posterior Tibial Artery, Percutaneous Approach (ICD-10-PCS; principal; 2016-08-29 11:00)
DX: E11.52 Type 2 diabetes mellitus with diabetic peripheral angiopathy with gangrene (principal); L03.116 Cellulitis of left lower limb; E11.40 Type 2 diabetes mellitus with diabetic neuropathy, unspecified; E11.65 Type 2 diabetes mellitus with hyperglycemia; Z79.4 Long term (current) use of insulin
CPT/HCPCS: 36415; 73502-TC-LT; 73502-TC-RT; 73660-TC; 76000-TC; 80053; 83036; 85025; 85651; 86140; 94760; 99283-25; J1644

== ENCOUNTER 2016-10-23 11:28 | Inpatient (IN) | payer OTHER ==
--- NOTE | 2016-10-23 11:51 | PDOC ---
History of Present Illness <Jim Salcedo - Last Filed: 10/23/16 13:46> - General History Source: Patient Exam Limitations: No Limitations - History of Present Illness Initial Comments: 10/23/16 11:52 The patient is a 56-year-old man, accompanied by , with a significant past medical history of diabetes mellitus (not on medications), foot ulcers and gangrene s/p angioplasty by Dr. Luis Manuel Ponce who presents to the emergency department for further evaluation of post operative left leg pain. Patient states that for the past 3-4 days, he noticed that he is unable to bear any weight on his left leg. He describes his pain as a throbbing sensation that starts from his great left toe and radiates up to the back of his hamstrings. No associated weakness, numbness and tingling sensations to his extremities. Despite elevating his legs at night, he also reports that his left leg is more swollen than usual. He also admits that he has not been able to take his insulin and the prescribed antibiotics for the past 10 days, as he currently has an insurance issue. He has not seen Dr. Ponce since the surgery. No fever, chills. No chest pain, lightheadedness, dizziness, palpitations, headaches. No abdominal pain, nausea, vomiting. No urinary complaints. No cough, shortness of breath. Allergies: No Known Drug Allergies. Past Surgical History: Angioplasty. Social History: Never smoked. No ETOH and recreational drug use. Primary Care Physician: N/A Vascular Surgeon: Dr. Luis Manuel Ponce [phone] <Sue Martines - Last Filed: 10/23/16 14:10> - General Chief Complaint: Pain Stated Complaint: POST-OP, LT LEG/FOOT PAIN Time Seen by Provider: 10/23/16 11:48 Past History - Past Medical History Diabetes: Yes (not on meds) Other medical history: denies - Psycho/Social/Smoking Cessation Hx Suicidal Ideation: No Smoking History: Never smoked Information on smoking cessation initiated: No Hx Alcohol Use: No Drug/Substance Use Hx: No Substance Use Type: None Hx Substance Use Treatment: No <Jim Salcedo - Last Filed: 10/23/16 13:46> <Sue Martines - Last Filed: 10/23/16 14:10> - Past Medical History Allergies/Adverse Reactions: Allergies Allergy/AdvReac Type Severity Reaction Status Date / Time No Known Allergies Allergy Verified 10/23/16 11:32 Home Medications: Ambulatory Orders Clopidogrel Bisulfate [Plavix -] 75 mg PO DAILY #30 tablet 09/01/16 Insulin (Levemir) [Levemir Vial] 15 units SQ HS #1 ml 09/01/16 Insulin (Levemir) [Levemir Vial] 25 units SQ AM #1 ml 09/01/16 Review of Systems - Review of Systems Constitutional: Yes: Chills. No: Fever Respiratory: No: Cough, Shortness of Breath Cardiac (ROS): No: Chest Pain, Lightheadedness ABD/GI: No: Diarrhea, Vomiting : No: Frequency Integumentary: Yes: See HPI All Other Systems: Reviewed and Negative <Jim Salcedo - Last Filed: 10/23/16 13:46> *Physical Exam - Vital Signs Last Vital Signs Temp Pulse Resp BP Pulse Ox 98.2 F 111 H 19 186/105 97 10/23/16 11:30 10/23/16 11:30 10/23/16 11:30 10/23/16 11:30 10/23/16 11:30 <Jim Salcedo - Last Filed: 10/23/16 13:46> - Vital Signs Last Vital Signs Temp Pulse Resp BP Pulse Ox 98.2 F 111 H 19 186/105 97 10/23/16 11:30 10/23/16 11:30 10/23/16 11:30 10/23/16 11:30 10/23/16 11:30 - Physical Exam Comments: 10/23/16 11:54 GENERAL: The patient is awake, alert, and fully oriented, in no acute distress. HEAD: Normal with no signs of trauma. EYES: Pupils equal, round and reactive to light, extraocular movements intact, sclera anicteric, conjunctiva clear with no pallor. ENT: Ears normal, nares patent, oropharynx clear without exudates. Moist mucous membranes. NECK: Normal range of motion, supple without lymphadenopathy, JVD, or masses. LUNGS: Breath sounds equal, clear to auscultation bilaterally. No wheeze/ crackles. HEART: Slight tachycardia but Regular rate and rhythm, without murmur or rub. ABDOMEN: Soft/nontender/nondistended. BS wnl. No guarding or rebound. No palpable masses. No hepatosplenomegaly. EXTREMITIES: Normal range of motion, no edema. No clubbing or cyanosis. No cords, erythema, or tenderness. NEUROLOGICAL: Cranial nerves II through XII grossly intact. Normal speech. PSYCH: Normal mood, normal affect. SKIN: There is a chronic ulceration of the distal and plantar aspect of the 1rst toe of the left foot. There is also some soft tissue swelling with redness and warmth extending to the mid lower leg. There is also some discharge form the plantar wound but no obvious pus of bleeding. <Sue Martines - Last Filed: 10/23/16 14:10> ED Treatment Course - LABORATORY CBC & Chemistry Diagram: 10/23/16 12:30 10/23/16 12:30 <Jim Salcedo - Last Filed: 10/23/16 13:46> - LABORATORY CBC & Chemistry Diagram: 10/23/16 12:30 10/23/16 12:30 - RADIOLOGY Radiograph Interpretation: 10/23/16 14:09 EXAM: RAD/FOOT-LEFT FOOT IMPRESSION: There is a soft tissue defect at the distal aspect of the big toe which extends to the bone and there are bony destructive changes of the tuft of the distal phalanx of the big toe consistent with ulceration and osteomyelitis. There is a soft tissue defect at the plantar aspect of the big toe. There is a mild hallux valgus with mild degenerative changes. EXAM: RAD/CHEST - PA IMPRESSION: Cardiomediastinal silhouette is within normal limits. Lungs balderas appear clear. Costophrenic angles are sharp. Visualized bony structures appear intact. <Sue Martines - Last Filed: 10/23/16 14:10> Medical Decision Making - Medical Decision Making 10/23/16 12:16 A portion of this note was documented by scribe services under my direction. I have reviewed the details of the note, within reason, and agree with the documentation with the following case summary and management plan written by me. 56-year-old male insulin-dependent diabetic noncompliant with medications with known left foot chronic ulceration complicated by gangrene requiring angioplasty in August now presents with swelling and pain to right foot/lower leg over the last 4 days. Vitals as noted. Exam as noted with chronic left toe gangrene and open ulcers with cellulitis extending circumferentially on the foot to the middle third of the lower leg. 56-year-old male insulin-dependent diabetic with chronic foot ulcer/gangrene now complicated by recurrent cellulitis of the left foot/leg. Vital signs are normal, generally well-appearing, neurovascularly at baseline. Labs and cultures X-ray IV antibiotics Admission 10/23/16 13:46 WBC 12, CRP elevated, glucose 355, acetone 1+, AG normal. Awaiting imaging. Received abx. Accepted for inpatient med/surg by Dr. Norton <Jim Salcedo - Last Filed: 10/23/16 13:46> - Medical Decision Making 10/23/16 13:17 MicroBlogged Hospitalist. <Sue Martines - Last Filed: 10/23/16 14:10> *DC/Admit/Observation/Transfer - Discharge Dispostion Admit: Yes <Jim Salcedo - Last Filed: 10/23/16 13:46> - Attestations Scribe Attestion: 10/23/16 11:55 Documentation prepared by Sue Martines, acting as medical education coordinator for Jim Salcedo MD. <Sue Martines - Last Filed: 10/23/16 14:10> Diagnosis at time of Disposition: Gangrenous toe Cellulitis Qualifiers: Site of cellulitis: extremity Site of cellulitis of extremity: lower extremity Laterality: left Qualified Code(s): L03.116 - Cellulitis of left lower limb - Discharge Dispostion Condition at time of disposition: Fair
[2016-10-23] MEDS ORDERED: VANCOMYCIN 1,000 MG in DEXTROSE 5%-WATER - 250 ML IVPB ONE (12:11)
[2016-10-23] MEDS ORDERED: PIPERACILLIN/TAZOB 4.5 GM/100 ML PRE-DOCKED IVPB ONE (12:11)
[2016-10-23 12:39] LABS: BASOPHIL 0.2 % (0-2.0); EOSINOPHIL 0.2 % (0-4.5); MCH 25.9 pg (25.7-33.7); MCHC 32.4 g/dl (32.0-35.9); MEAN CELL VOLUME 79.9 fl (80-96); MEAN PLT VOLUME 7.5 fl (7.5-11.1); NEUTROPHILS 83.5 % (42.8-82.8); PLATELET COUNT 261 K/MM3 (134-434); RDW 13.1 % (11.9-15.9)
[2016-10-23 13:04] LABS: ALBUMIN 2.5 g/dl (3.4-5.0); ANION GAP 12 (8-16); BILIRUBIN,TOTAL 0.5 mg/dL (0.2-1.0); CALCIUM 8.6 mg/dL (8.5-10.1); CO2 27 mmol/L (21-32); COCKROFT - GAULT 105.49; SGPT/ALT 21 U/L (12-78); TOT PROT 6.8 g/dl (6.4-8.2)
[2016-10-23 13:10] LABS: ALK PHOS 129 U/L (45-117); C-REACTIVE PROTEIN 21.2 MG/DL (0.00-0.3)
[2016-10-23 13:13] LABS: SGOT/AST 22 U/L (15-37)
[2016-10-23 13:14] LABS: GLUCOSE,RANDOM 355 mg/dL (74-106)
[2016-10-23] MEDS ORDERED: PIPERACILLIN/TAZOB 3.375 GM 50 ML IVPB ONE (13:14)
[2016-10-23] MEDS ORDERED: VANCOMYCIN 1 GRAM (PRE-DOCKED) 250 ML IVPB ONE (13:14)
[2016-10-23] MEDS ORDERED: OXYCODONE/APAP 5/325MG COMBO TABLET PO ONE (13:16)
[2016-10-23] MEDS ORDERED: OXYCODONE/APAP 5/325MG COMBO TABLET ONE (13:17)
[2016-10-23 13:46] LABS: ACETONE SERUM POSITIVE SMALL 1+ (NEGATIVE)
[2016-10-23 14:27] LABS: ERYTHROCYTE SEDIMENTATION RATE 117 mm/hr (0-20)
--- NOTE | 2016-10-23 14:45 | HP ---
CHIEF COMPLAINT: Left toe pain and inability to bear weight on left foot PCP: None HISTORY OF PRESENT ILLNESS: 56 year-old male with PMH uncontrolled IDDM ( because of insurance lapse has not had medications for approx 20 days) and gangrenous left foot ulcer s/p angioplasty (08/2016) presents to ED with c/o 3-4 days of left foot pain and inability to bear weight. Pain is described as 7/10, constant, throbbing pain to tip and plantar surface of left great toe that radiates to the dorsum of the left foot. Earlier today he was also having pain into his left hamstring, but this has resolved. ER course was notable for: (1) WBC 12, CRP 21.2, left foot xray shows destructive changes of the tuft of the distal phalanx of the big toe consistent with ulceration and osteomyelitis and soft tissue defect at the plantar aspect of the big toe (2) BG 355, acetone 1+ (3) SBP 170-180s Recent Travel: No PAST MEDICAL HISTORY: IDDM (not taking medications), left foot gangrenous ulcer (08/2016) PAST SURGICAL HISTORY: angioplasty left posterior tibial artery (08/2016) Social History: Lives at home alone. 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 Smoking: None Alcohol: None Drugs: None Family History: Non-contributory to this admission. Allergies: none No Known Allergies Allergy (Verified 10/23/16 11:32) HOME MEDICATIONS: Home Medications Medication Instructions Recorded Clopidogrel Bisulfate [Plavix -] 75 mg PO DAILY #30 tablet 09/01/16 Insulin (Levemir) [Levemir Vial] 15 units SQ HS #1 ml 09/01/16 Insulin (Levemir) [Levemir Vial] 25 units SQ AM #1 ml 09/01/16 REVIEW OF SYSTEMS CONSTITUTIONAL: chills Absent: fever, diaphoresis, generalized weakness, malaise, loss of appetite, weight change HEENT: Absent: rhinorrhea, nasal congestion, throat pain, throat swelling, difficulty swallowing, mouth swelling, ear pain, eye pain, visual changes CARDIOVASCULAR: Absent: chest pain, syncope, palpitations, irregular heart rate, lightheadedness , peripheral edema RESPIRATORY: Absent: cough, shortness of breath, dyspnea with exertion, orthopnea, wheezing, stridor, hemoptysis GASTROINTESTINAL: Absent: abdominal pain, abdominal distension, nausea, vomiting, diarrhea, constipation, melena, hematochezia GENITOURINARY: Absent: dysuria, frequency, urgency, hesitancy, hematuria, flank pain, genital pain MUSCULOSKELETAL: + arthralgia, swelling to left foot Absent: myalgia, back pain, neck pain SKIN: + erythema, warmth to left foot and ankle Absent: rash, itching, pallor HEMATOLOGIC/IMMUNOLOGIC: Absent: easy bleeding, easy bruising, lymphadenopathy, frequent infections ENDOCRINE: + cold intolerance Absent: unexplained weight gain, unexplained weight loss, heat intolerance NEUROLOGIC: Absent: headache, focal weakness or paresthesias, dizziness, unsteady gait, seizure, mental status changes, bladder or bowel incontinence PSYCHIATRIC: Absent: anxiety, depression, suicidal or homicidal ideation, hallucinations. PHYSICAL EXAMINATION GENERAL: Awake, alert, and fully oriented, in moderate discomfort. HEAD: Normal with no signs of trauma. EYES: Pupils equal, round and reactive to light, extraocular movements intact, sclera anicteric, conjunctiva clear. No lid lag. EARS, NOSE, THROAT: Ears normal, nares patent, oropharynx clear without exudates. Moist mucous membranes. NECK: Normal range of motion, supple without lymphadenopathy, JVD, or masses. LUNGS: Breath sounds equal, clear to auscultation bilaterally. No wheezes, and no crackles. No accessory muscle use. HEART: Regular rate and rhythm, normal S1 and S2 without murmur, rub or gallop. ABDOMEN: Soft, nontender, not distended, normoactive bowel sounds, no guarding, no rebound, no masses. No hepatomegaly or splenomegaly. MUSCULOSKELETAL: Normal range of motion at all joints. No bony deformities or tenderness. No CVA tenderness. UPPER EXTREMITIES: 2+ pulses, warm, well-perfused. No cyanosis. No clubbing. No peripheral edema. LOWER EXTREMITIES: 2+ PT pulses bilaterally, 1+ DP pulses bilaterally, 2+ pitting edema and erythema to left foot and ankle extending up mid calf NEUROLOGICAL: Cranial nerves II-XII intact. Normal speech. PSYCHIATRIC: Cooperative. Good eye contact. Appropriate mood and affect. SKIN: 1 cm L x 1 cm W ulceration on tip of left great toe and 2.5 cm L x 1 cm W by 0.75 cm D ulceration to the plantar surface of left great toe with trace serousanguinous drainage IMAGING: Left foot XR 10/23 - (1) destructive changes of the tuft of the distal phalanx of the big toe consistent with ulceration and osteomyelitis; (2) soft tissue defect at the plantar aspect of the big toe CXR 10/23 - no acute pathology ASSESSMENT/PLAN: 56 year-old male with PMH uncontrolled IDDM and gangrenous left foot ulcer s/p angioplasty (08/2016) being admitted for osteomyelitis of left great toe. 1. Sepsis secondary to Osteomyelitis (WBC 12, P 92) - Leukocytosis - WBC 12 with left shift, foot XR shows changes consistent with osteomyelitis, CRP 21.2 - BC sent and pending - Continue Vancomycin, start Zosyn for pseudomonal coverage - ID consulted - Vascular surgery consulted - Podiatry consult - Roxicodone PRN pain - Continue Plavix - discussed with vascular 2. IDDM - Unable to obtain insulin due to insurance lapse - Hgb A1c 11.8 in 08/2016, acetone 1+ in ED today - Regular insulin 8 units x 1 now - Restart home Levemir dose - BGM and ISS Novolog - Diabetic diet 3. HTN - SBP 170-180s in ED - Will monitor and intervene appropriately once pain is well-controlled 4. PPx - Heparin 5,000 units SQ TID - Activity as tolerated, OOB - No indication for PUD prophylaxis at this time 5. F/E/N - Fluids: NS @ 83mL/hr - Electrolytes: Monitor and replace as needed - Nutrition: Diabetic Diet Dispo: Admit to regular floor FULL CODE Visit type - Emergency Visit Emergency Visit: Yes ED Registration Date: 10/23/16 Care time: The patient presented to the Emergency Department on the above date and was hospitalized for further evaluation of their emergent condition. - New Patient This patient is new to me today: Yes Date on this admission: 10/23/16 - Critical Care Critical Care patient: No
[2016-10-23] MEDS ORDERED: INSULIN REGULAR HUMAN 100 UNITS/ML *VIAL SQ ONE (14:49)
[2016-10-23] MEDS: SODIUM CHLORIDE 1,000 ML IV SCH (15:10)
[2016-10-23] MEDS ORDERED: INSULIN (NOVOLOG) ASPART 100 UNITS/ML 10ML VIAL ONE (15:12)
[2016-10-23] MEDS ORDERED: oxyCODONE HCL 5 MG TABLET PO PRN (15:19)
[2016-10-23] MEDS ORDERED: oxyCODONE HCL 5 MG TABLET PO ONE (17:45)
[2016-10-23] MEDS ORDERED: PIPERACILLIN/TAZOB 4.5 GM/100 ML PRE-DOCKED IVPB SCH (18:00)
--- NOTE | 2016-10-23 18:22 | CONSULT ---
Consult - Alcohol/Substance Use Hx Alcohol Use: No - Smoking History Smoking history: Never smoked Home Medications - Allergies Allergies/Adverse Reactions: Allergies Allergy/AdvReac Type Severity Reaction Status Date / Time No Known Allergies Allergy Verified 10/23/16 11:32 - Home Medications Home Medications: Ambulatory Orders Clopidogrel Bisulfate [Plavix -] 75 mg PO DAILY #30 tablet 09/01/16 Insulin (Levemir) [Levemir Vial] 15 units SQ HS #1 ml 09/01/16 Insulin (Levemir) [Levemir Vial] 25 units SQ AM #1 ml 09/01/16 Physical Exam Vital Signs: Vital Signs Temperature 98.2 F 10/23/16 11:30 Pulse Rate 92 H 10/23/16 16:04 Respiratory Rate 17 10/23/16 16:04 Blood Pressure 151/90 10/23/16 16:04 O2 Sat by Pulse Oximetry (%) 97 10/23/16 16:04 Assessment/Plan Vascular Surgery The patient is a 56-year-old man, accompanied by , with a significant past medical history of diabetes mellitus (not on medications), foot ulcers and gangrene s/p angioplasty in aug, who presents to the emergency department for further evaluation of post operative left leg pain. Patient states that for the past 3-4 days, he noticed that he is unable to bear any weight on his left leg. He describes his pain as a throbbing sensation that starts from his great left toe and radiates up to the back of his hamstrings. No associated weakness, numbness and tingling sensations to his extremities. Despite elevating his legs at night, he also reports that his left leg is more swollen than usual. He also admits that he has not been able to take his insulin and the prescribed antibiotics for the past 10 days, as he currently has an insurance issue. Since his operation in aug, he has not followed up with me. PE Head - NC/AT Lung - CTA Heart - RRR abd - soft,nt,nd ext - Left great toe with ulcer. Pt has not been taking care of the wound. Palpable PT pulse. Main runoff as per angio. No palpable DP pulse. A/P Left great toe ulcers. 1. Palpable PT pulse. 2. santyl to wound daily. 3. Xray shows osteo. 4. Pt will need IV antibiotics, HBO. If does not get better will need toe amp. Pt has PT as main runoff, Not DP. So questionable if amp would heal. Luis Manuel Ponce DO
[2016-10-23] MEDS: INSULIN SLIDING SCALE (NOVOLOG) 1 VIAL SQ SCH ×2 (18:37→22:43)
[2016-10-23 18:53] VITALS: BMI 24.7
[2016-10-23] MEDS ORDERED: PIPERACILLIN/TAZOB 3.375 GM/50 ML PRE-DOCKED IVPB ONE (20:30)
[2016-10-23] MEDS: HEPARIN NA (PORCINE) 5,000 UNITS/ML 1ML VIAL SQ SCH (21:55)
[2016-10-23] MEDS: COLLAGENASE CLOSTRIDIUM HIST. 30 GRAMS TUBE TP SCH (21:56)
[2016-10-23] MEDS: DOCUSATE SODIUM 100 MG CAPSULE (FP) PO SCH (21:56)
[2016-10-23] MEDS ORDERED: VANCOMYCIN 1,000 MG in DEXTROSE 5%-WATER - 250 ML IVPB SCH (22:00)
[2016-10-23] MEDS ORDERED: VANCOMYCIN 1,250 MG in DEXTROSE 5%-WATER - 250 ML IVPB SCH (22:00)
[2016-10-23] MEDS: INSULIN DETEMIR 100 UNITS/ML MDV SQ SCH (22:41)
[2016-10-23] MEDS ORDERED: VANCOMYCIN 1,250 MG in DEXTROSE 5%-WATER - 250 ML IVPB ONE (23:15)
[2016-10-24] MEDS: PIPERACILLIN/TAZOB 3.375 GM/50 ML PRE-DOCKED IVPB SCH ×3 (01:38→17:13)
[2016-10-24] MEDS: ACETAMINOPHEN 325 MG TABLET (FP) PO PRN ×3 (02:31→21:32)
[2016-10-24] MEDS: SODIUM CHLORIDE 1,000 ML IV SCH ×2 (03:54→19:25)
[2016-10-24] MEDS: HEPARIN NA (PORCINE) 5,000 UNITS/ML 1ML VIAL SQ SCH ×3 (05:42→21:27)
[2016-10-24] MEDS: DOCUSATE SODIUM 100 MG CAPSULE (FP) PO SCH ×3 (05:42→21:27)
[2016-10-24] MEDS: INSULIN DETEMIR 100 UNITS/ML MDV SQ SCH ×2 (06:06→21:29)
[2016-10-24] MEDS: INSULIN SLIDING SCALE (NOVOLOG) 1 VIAL SQ SCH ×4 (06:06→21:30)
[2016-10-24 08:56] LABS: BASOPHIL 0.3 % (0-2.0); EOSINOPHIL 0.6 % (0-4.5); MCH 26.1 pg (25.7-33.7); MCHC 33.2 g/dl (32.0-35.9); MEAN CELL VOLUME 78.7 fl (80-96); MEAN PLT VOLUME 7.9 fl (7.5-11.1); NEUTROPHILS 74.1 % (42.8-82.8); PLATELET COUNT 252 K/MM3 (134-434); RDW 13.1 % (11.9-15.9); WHITE BLOOD COUNT 10.7 K/mm3 (4.0-10.0)
[2016-10-24 09:13] LABS: ALBUMIN 1.9 g/dl (3.4-5.0); ANION GAP 9 (8-16); CALCIUM 7.8 mg/dL (8.5-10.1); CO2 27 mmol/L (21-32); COCKROFT - GAULT 106.29; GLUCOSE,RANDOM 168 mg/dL (74-106); SGOT/AST 22 U/L (15-37); SGPT/ALT 23 U/L (12-78)
[2016-10-24 09:15] LABS: ALK PHOS 141 U/L (45-117); BILIRUBIN,TOTAL 0.5 mg/dL (0.2-1.0); TOT PROT 5.7 g/dl (6.4-8.2)
[2016-10-24 09:34] LABS: INR 1.36 (0.82-1.09)
[2016-10-24] MEDS: CLOPIDOGREL BISULFATE 75 MG TABLET (FP) PO SCH (09:36)
[2016-10-24] MEDS: COLLAGENASE CLOSTRIDIUM HIST. 30 GRAMS TUBE TP SCH (09:37)
[2016-10-24] MEDS: oxyCODONE HCL 5 MG TABLET PO PRN ×2 (10:08→19:25)
--- NOTE | 2016-10-24 13:57 | PN ---
Physical Exam: SUBJECTIVE: Patient seen and examined Pt is awake, alert and oriented to time, place and person Pt say he does not check his blood sugar at home He just follows diet and knows how to take care of the blood sugar Patient said he will save his toe The wound started as a blister that worsened, he did no use any objects to open it. OBJECTIVE: Vital Signs Period Temp Pulse Resp BP Sys/Lopez Pulse Ox Last 24 Hr 98.2 F-103.8 F 91-109 17-20 129-175/67-90 95-99 GENERAL: The patient is awake, alert, and fully oriented, in no acute distress. HEAD: Normal with no signs of trauma. LUNGS: Breath sounds equal, clear to auscultation bilaterally, no wheezes, no crackles, no accessory muscle use. HEART: Regular rate and rhythm, S1, S2 with murmur, rub or gallop. ABDOMEN: Soft, nontender, nondistended, normoactive bowel sounds, no guarding, no rebound, no hepatosplenomegaly, no masses. EXTREMITIES: 2+ pulses, warm, well-perfused, no edema. NEUROLOGICAL: Normal speech, gait not observed. PSYCH: Normal mood, normal affect. SKIN: Warm, dry, normal turgor, no rashes or lesions noted. left great toe with necrotic black eschar in anterior and plantar region, Large ulceraction in plantar region of first digit with yellow bay and mild purulent fluid and foul smell. distal Half of the left foot have redness and discoloration and tenderness. Left lower extremities with swelling and warmer than right foot. Doppler pulse in doralis pedis in left foot. Laboratory Results - last 24 hr 10/23/16 10/23/16 10/24/16 18:20 21:27 05:38 WBC RBC Hgb Hct MCV MCHC RDW Plt Count MPV Neutrophils % Lymphocytes % Monocytes % Eosinophils % Basophils % INR Sodium Potassium Chloride Carbon Dioxide Anion Gap BUN Creatinine Creat Clearance w eGFR POC Glucometer 334 332 292 Random Glucose Hemoglobin A1c % Calcium Total Bilirubin AST ALT Alkaline Phosphatase Total Protein Albumin 10/24/16 10/24/16 10/24/16 07:50 07:50 07:50 WBC 10.7 H RBC 3.41 L Hgb 8.9 L D Hct 26.9 L MCV 78.7 L MCHC 33.2 RDW 13.1 Plt Count 252 MPV 7.9 Neutrophils % 74.1 Lymphocytes % 12.3 D Monocytes % 12.7 H Eosinophils % 0.6 D Basophils % 0.3 INR 1.36 H Sodium 137 Potassium 3.7 Chloride 101 Carbon Dioxide 27 Anion Gap 9 BUN 25 H D Creatinine 1.0 Creat Clearance w eGFR > 60 POC Glucometer Random Glucose 168 H D Hemoglobin A1c % Calcium 7.8 L Total Bilirubin 0.5 AST 22 ALT 23 Alkaline Phosphatase 141 H Total Protein 5.7 L Albumin 1.9 L D 10/24/16 10/24/16 07:50 11:09 WBC RBC Hgb Hct MCV MCHC RDW Plt Count MPV Neutrophils % Lymphocytes % Monocytes % Eosinophils % Basophils % INR Sodium Potassium Chloride Carbon Dioxide Anion Gap BUN Creatinine Creat Clearance w eGFR POC Glucometer 141 Random Glucose Hemoglobin A1c % 12.4 H D Calcium Total Bilirubin AST ALT Alkaline Phosphatase Total Protein Albumin Active Medications Generic Name Dose Route Start Last Admin Trade Name Freq PRN Reason Stop Dose Admin Acetaminophen 650 mg 10/23/16 15:19 10/24/16 06:41 Tylenol - PO 650 mg Q4H PRN Administration FEVER OR PAIN Clopidogrel Bisulfate 75 mg 10/24/16 10:00 10/24/16 09:36 Plavix - PO 75 mg DAILY SANGEETHA Administration Collagenase 1 applic 10/23/16 18:30 10/24/16 09:37 Santyl - TP 1 applic DAILY SANGEETHA Administration Docusate Sodium 100 mg 10/23/16 22:00 10/24/16 13:12 Colace - PO 100 mg TID SANGEETHA Administration Heparin Sodium (Porcine) 5,000 unit 10/23/16 22:00 10/24/16 13:12 Heparin - SQ 5,000 unit TID SANGEETHA Administration Sodium Chloride 1,000 mls @ 83 mls/hr 10/23/16 15:00 10/24/16 03:54 Normal Saline - IV 10/25/16 03:03 83 mls/hr ASDIR SANGEETHA Administration Vancomycin HCl 1,250 mg/ 250 mls @ 250 mls/hr 10/23/16 22:00 Dextrose IVPB BID [facility] Protocol Insulin Aspart 1 vial 10/23/16 16:30 10/24/16 11:11 Novolog Vial Sliding Scale - SQ Not Given ACHS [facility] Protocol Insulin Detemir 15 units 10/23/16 22:00 10/23/16 22:41 Levemir Vial SQ 15 units HS S[facility]HA Administration Insulin Detemir 25 units 10/24/16 07:00 10/24/16 06:06 Levemir Vial SQ 25 unit AM S[facility]HA Administration Oxycodone HCl 5 mg 10/24/16 07:35 10/24/16 10:08 Roxicodone - PO 5 mg Q4H PRN Administration PAIN Piperacillin Sod/Tazobactam Sod 3.375 gm 10/24/16 02:00 10/24/16 09:35 Zosyn 3.375gm Ivpb (Pre-Docked) IVPB 3.375 gm Q8H-IV SANGEETHA Administration CBC, BMP 10/24/16 07:50 10/24/16 07:50 Microbiology 10/23/16 12:30 Foot - Left Plantar Wound Culture - Preliminary Staphylococcus Latex Coag Pos Strep Agalactiae Group B Group D Strep Or Entero Coccus Pending Organism 10/23/16 12:30 Blood - Peripheral Venous Blood Culture - Preliminary NO GROWTH OBTAINED AFTER 24 HOURS, INCUBATION TO CONTINUE FOR 4 DAYS. 10/23/16 12:30 Blood - Peripheral Venous Blood Culture - Preliminary NO GROWTH OBTAINED AFTER 24 HOURS, INCUBATION TO CONTINUE FOR 4 DAYS. Laboratory Tests 10/24/16 10/24/16 10/24/16 07:50 07:50 07:50 INR 1.36 H Hemoglobin A1c % 12.4 H D Calcium 7.8 L Total Bilirubin 0.5 AST 22 ALT 23 Alkaline Phosphatase 141 H Albumin 1.9 L D ASSESSMENT/PLAN: 56 year old male with pmh of uncontrolled diabetes and grangrenous left foot s/ p angiopaslty on 08/2016 was admitted for osteomyelitis of left great toe. Sepsis secondary osteomyelitis of left great toe WBC 12, fever 103.8, Xray left foot showed osteomyelitis Start vancomycin and Zosyn in ED ID consulted Dr Cedeno Continue Zosyn and Vancomycin He recommends MRI of left lower ext Roxicodone 5mg po q4h Vascular surgery consulted he recommends to continue medical therapy but we may end up amputating if no improvement due to questionable healing Continue dressing with Santyl daily Dr Beckwith consulted to see patient in am Will keep Pt NPO after midnight just in case if amputation is needed Uncontrolled Diabetes No insurance to get medication Pt said he controlled his diabetes with diet, he does not check his medication Started on Levemir 25 units qAM started on Levemir 15 units qhs, Novolog sliding scale HTN Was likely elevated due to pain has be controlled overnight Will start DIAZ and/or calcium channel carolyn if elevated FEN Fluid: Will resume fluid if NPO overnight Electrolytes: no abnormalities Nutrition: diabetic diet, NPO after midnight Disposition: keep in medsurg pending resolution of sepsis and management of osteomyelitis Visit type - Emergency Visit Emergency Visit: Yes ED Registration Date: 10/23/16 Care time: The patient presented to the Emergency Department on the above date and was hospitalized for further evaluation of their emergent condition. - New Patient This patient is new to me today: Yes Date on this admission: 10/24/16 - Critical Care Critical Care patient: No - Discharge Referral Referred to [facility] No
--- NOTE | 2016-10-24 14:16 | CONSULT ---
Consult Consult Specialty:: infectious diseases Reason for Consultation:: infection of the left toe. cellulitis of the left foot - History of Present Illness Chief Complaint: pain swelling and discharge of the left toe History of Present Illness: The patient is a 56-year-old man, accompanied by , with a significant past medical history of diabetes mellitus , foot ulcers and gangrene s/p angioplasty in aug, admitted for further evaluation of post operative left leg pain. Patient states that for the past 3-4 days, he noticed that he is unable to bear any weight on his left leg. He describes his pain as a throbbing sensation that starts from his great left toe and radiates up to the back of his hamstrings. patient known to me from last admission now the patient wound is pretty bad with wound on the dorsal aspect of the great toe touching the bone clinically i feel that this is osteo.also he has foul smell to the wound rest of the foot has cellulitis which is extending upto the mid leg - History Source History Provided By: Patient Limitations to Obtaining History: No Limitations - Alcohol/Substance Use Hx Alcohol Use: No - Smoking History Smoking history: Never smoked Home Medications - Allergies Allergies/Adverse Reactions: Allergies Allergy/AdvReac Type Severity Reaction Status Date / Time No Known Allergies Allergy Verified 10/23/16 11:32 - Home Medications Home Medications: Ambulatory Orders Clopidogrel Bisulfate [Plavix -] 75 mg PO DAILY #30 tablet 09/01/16 Insulin (Levemir) [Levemir Vial] 15 units SQ HS #1 ml 09/01/16 Insulin (Levemir) [Levemir Vial] 25 units SQ AM #1 ml 09/01/16 Review of Systems - Review of Systems Constitutional: reports: Fever, Other Eyes: reports: No Symptoms HENT: reports: No Symptoms Neck: reports: No Symptoms Cardiovascular: reports: No Symptoms Respiratory: reports: No Symptoms Gastrointestinal: reports: No Symptoms Musculoskeletal: reports: Extremity Pain, Joint Pain, Muscle Pain Integumentary: reports: Change in Color, Erythema, Lesions, Wound, Other Neurological: reports: No Symptoms Endocrine: reports: No Symptoms Hematology/Lymphatic: reports: No Symptoms Psychiatric: reports: No Symptoms Physical Exam Vital Signs: Vital Signs Temperature 98.2 F 10/24/16 10:00 Pulse Rate 93 H 10/24/16 10:00 Respiratory Rate 20 10/24/16 10:00 Blood Pressure 135/71 10/24/16 10:00 O2 Sat by Pulse Oximetry (%) 95 10/23/16 21:00 Constitutional: Yes: Calm, Mild Distress Eyes: Yes: Conjunctiva Clear HENT: Yes: Atraumatic Neck: Yes: Supple, Trachea Midline Cardiovascular: Yes: Regular Rate and Rhythm Respiratory: Yes: Regular, CTA Bilaterally Gastrointestinal: Yes: Normal Bowel Sounds, Soft Musculoskeletal: Yes: Muscle Pain, Other Extremities: Yes: Erythema, Other Integumentary: Yes: Erythema, Other Wound/Incision: Yes: Open to air, Draining Neurological: Yes: Alert, Oriented Psychiatric: Yes: Alert, Oriented Labs: CBC, BMP 10/24/16 07:50 10/24/16 07:50 Imaging - Results Chest X-ray: Report Reviewed, Image Reviewed X-ray: Report Reviewed, Image Reviewed Assessment/Plan this patient who is non compliante diabetic wound evaluated i have no doubt that this is osteo osteo of the left toe wound infection dm plan please get a mri of the leg to see how far the infection is spread continue kraigo and jaime as far as i think amputation of the toe will eb the best choice cx result noted abx will be on for 6 weeks if surgery is planned pls get mri before surgery rest as per primary
--- NOTE | 2016-10-24 18:16 | PN ---
Teaching Attending Note Name of Resident: Eulogio Wiley ATTENDING PHYSICIAN STATEMENT I saw and evaluated the patient. I reviewed the resident's note and discussed the case with the resident. I agree with the resident's findings and plan as documented. SUBJECTIVE:states pain is improved in foot with pain medications. states it started off as blister on his big toe after getting new shoes that popped several days later. assoc with edema and erythema that spread up his antonio which has improved. denies CP, SOB,fever, chills, N/V/C/D states he does not check his sugars at home often but when he does hes usually < 200 OBJECTIVE: Last Vital Signs Temp Pulse Resp BP Pulse Ox 98.2 F 93 H 20 135/71 95 10/24/16 10:00 10/24/16 10:00 10/24/16 10:00 10/24/16 10:00 10/23/16 21:00 General NAD CV S1 S2 RRR no murmur/rub/gallop LUngs CTA B/L no wheezing/rales/rhonchi Extremities L foot 1st digit with black eschar on top of the toe which is raised off the surface with ulceration, plantar surface with ulceration does not probe to bone. foul smelling, no crepitus under the skin appreciate. 1+ pitting edema. 1+ DP pulse appreciated with doppler ASSESSMENT AND PLAN: 56yo M with PMH DM presented to the ER and was admitted for further evalution of their emergent condition 1. 1st toe L foot OM- OM seen on XR, ESR elevated will need to be amputated. will obtain MRI to assess extension of disease required for resection. Wound cx obtained. will send off but will need to wait for bone bx to determine. started on Vanco/zosyn. pt seems opposed to amputation since "my toe has life in it" but stressed that infection may not be adequately treated with abx alone and that it can continue to spread. podiatry consulted, will wait on his recommendations but will likely require amputation. await cx. pain control 2. Microcytic anemia- likely dilutional component. no signs of active bleeding. check iron studies. transfuse for hgb <7 3. DM- A1c 12.4. pt must not be compliant with medications at home. will need adjustment with medications here. will adjust medications to optimize control. iss,bmg, levemir BID 4. DVT ppx- hep sq
[2016-10-24] MEDS: VANCOMYCIN 1,250 MG in DEXTROSE 5%-WATER - 250 ML IVPB SCH (22:12)
[2016-10-25] MEDS: INSULIN SLIDING SCALE (NOVOLOG) 1 VIAL SQ SCH ×6 (01:39→22:49)
[2016-10-25] MEDS: PIPERACILLIN/TAZOB 3.375 GM/50 ML PRE-DOCKED IVPB SCH ×3 (01:41→17:13)
[2016-10-25] MEDS: SODIUM CHLORIDE 1,000 ML IV SCH (01:41)
[2016-10-25] MEDS: HEPARIN NA (PORCINE) 5,000 UNITS/ML 1ML VIAL SQ SCH ×3 (06:35→22:48)
[2016-10-25] MEDS: DOCUSATE SODIUM 100 MG CAPSULE (FP) PO SCH ×3 (06:35→22:47)
[2016-10-25] MEDS: INSULIN DETEMIR 100 UNITS/ML MDV SQ SCH ×2 (06:37→22:49)
[2016-10-25] MEDS: ACETAMINOPHEN 325 MG TABLET (FP) PO PRN ×2 (06:38→19:47)
[2016-10-25] MEDS: oxyCODONE HCL 5 MG TABLET PO PRN ×2 (06:40→19:46)
[2016-10-25] MEDS ORDERED: INSULIN DETEMIR 100 UNITS/ML MDV SQ ONE (06:59)
[2016-10-25] MEDS ORDERED: INSULIN (NOVOLOG) ASPART 100 UNITS/ML 10ML VIAL ONE (07:00)
[2016-10-25] MEDS ORDERED: PT OWN MED DRAWER 7, Y5N ONE (07:00)
[2016-10-25] MEDS ORDERED: D5-1/2NS+20 MEQ KCL - 1,000 ML IV SCH (07:30)
--- NOTE | 2016-10-25 08:56 | CONSULT ---
Consult - text type - Consultation Consultation Note: Podiatry Consultation: 56 year old IDDM M presents with L great toe worsening infection and gangrene. Reports fever/chills at home. Being managed by Dr. Ponce, s/p LLE angio with 1 vessel runoff (PT artery). Reports fair prognosis for healing potential for great toe amputation. Patient has TMax 102 F, however currently afebrile. Noncompliant with medicine. PMHx: IDDM, PVD, HTN, HLP Meds: noted in chart ALL: NKMA COREY: L foot: great toe necrotic ulcer with exposed bone, macerated borders, plantar linear hallux ulcer, malodorous, no purulence, no fluctuance, no soft tissue crepitus. No tenderness to palpation. PT pulse 1/4, DP pulse non-palpable WBC: 10.7 Blood Cx: no growth L Foot XR: osteomyelitis distal tuft L foot MRI: report pending Imp: 56 year old IDDM M with L great toe DM infection, osteomyelitis Plan: 1. IV abx 2. Discussed need for great toe amputation. Patient refusing, states he wants to leave the hospital with his toe intact. I explained the risks, namely worsening infection, further amputation, loss of limb, sepsis and even loss of life. Patient demonstrates understanding and still refuses surgery. I do think he is consentable from psychiatric standpoint. 3. Please reconsult as necessary. Thank you for the courtesy of this consultation. Miriam Beckwith DPM
[2016-10-25] MEDS: COLLAGENASE CLOSTRIDIUM HIST. 30 GRAMS TUBE TP SCH (09:43)
--- NOTE | 2016-10-25 11:09 | PN ---
Progress Note, Physician History of Present Illness: patient stable podiatry note noted agree with podiatry patient had mri done - Current Medication List Current Medications: Active Medications Acetaminophen (Tylenol -) 650 mg PO Q4H PRN PRN Reason: FEVER OR PAIN Last Admin: 10/25/16 06:38 Dose: 650 mg Clopidogrel Bisulfate (Plavix -) 75 mg PO DAILY [facility] Last Admin: 10/24/16 09:36 Dose: 75 mg Collagenase (Santyl -) 1 applic TP DAILY [facility] Last Admin: 10/25/16 09:43 Dose: Not Given Docusate Sodium (Colace -) 100 mg PO TID [facility] Last Admin: 10/25/16 06:35 Dose: 100 mg Heparin Sodium (Porcine) (Heparin -) 5,000 unit SQ TID [facility] Last Admin: 10/25/16 06:35 Dose: 5,000 unit Vancomycin HCl 1,250 mg/ (Dextrose) 250 mls @ 125 mls/hr IVPB DAILY@2300 S[facility] PRN Reason: Protocol Last Admin: 10/24/16 22:12 Dose: 125 mls/hr Insulin Aspart (Novolog Vial Sliding Scale -) 1 vial SQ Q4HPO SANGEETHA PRN Reason: Protocol Last Admin: 10/25/16 09:49 Dose: Not Given Insulin Detemir (Levemir Vial) 15 units SQ HS [facility] Last Admin: 10/24/16 21:29 Dose: 15 units Insulin Detemir (Levemir Vial) 25 units SQ AM [facility] Last Admin: 10/25/16 06:37 Dose: 25 unit Oxycodone HCl (Roxicodone -) 5 mg PO Q4H PRN PRN Reason: PAIN Last Admin: 10/25/16 06:40 Dose: 5 mg Piperacillin Sod/Tazobactam Sod (Zosyn 3.375gm Ivpb (Pre-Docked)) 3.375 gm IVPB Q8H-IV [facility]ANGEETHA Last Admin: 10/25/16 09:44 Dose: 3.375 gm - Objective Vital Signs: Vital Signs Temperature 100.3 F H 10/25/16 07:02 Pulse Rate 97 H 10/25/16 07:02 Respiratory Rate 20 10/25/16 07:02 Blood Pressure 143/74 10/25/16 07:02 O2 Sat by Pulse Oximetry (%) 90 L 10/24/16 21:00 Constitutional: Yes: No Distress, Calm Cardiovascular: Yes: Regular Rate and Rhythm Respiratory: Yes: Regular, CTA Bilaterally Gastrointestinal: Yes: Normal Bowel Sounds, Soft Musculoskeletal: Yes: Other Extremities: Yes: Other Integumentary: Yes: Other Wound/Incision: Yes: Dressing Dry and Intact Neurological: Yes: Alert, Oriented Psychiatric: Yes: Alert, Oriented Labs: CBC, BMP 10/24/16 07:50 10/24/16 07:50 INR, PTT INR 1.36 (0.82-1.09) H 10/24/16 07:50 - ....Imaging MRI: Report Reviewed, Image Reviewed Assessment/Plan osteo of the left toe wound infection dm plan patients needs amputation has osteo mri seen and result noted
--- NOTE | 2016-10-25 12:33 | PN ---
Teaching Attending Note Name of Resident: Eulogio Wiley ATTENDING PHYSICIAN STATEMENT I saw and evaluated the patient. I reviewed the resident's note and discussed the case with the resident. I agree with the resident's findings and plan as documented. SUBJECTIVE:resting comfortable. denies pain. refusing surgery at this time. denies Cp, SOB,fever, chills, N/V/C/D OBJECTIVE: Last Vital Signs Temp Pulse Resp BP Pulse Ox 100.3 F H 97 H 20 143/74 90 L 10/25/16 07:02 10/25/16 07:02 10/25/16 07:02 10/25/16 07:02 10/24/16 21:00 General NAD Extremities L foot wrapped in dressing. c/d/i ASSESSMENT AND PLAN: 56yo M with PMH DM presented to the ER and was admitted for further evalution of their emergent condition 1. 1st toe L foot OM-Tm 102.6 MRI confirms OM of the entire first digit of L foot. no extension to other digits. was NPO for surgery but pt refused. d/w the possibility of infection continuing up his foot leading to amputation of foot or entire extremity. infection leading to sepsis and multiorgan failure. expresses understanding of risks and desire to try to medical management. asked him if he has any family members who can he can discuss with and help him make decision with. pt appears to be understanding of risks. Cx report with polyorganisms. on Vanco/Zosyn day 3. await for final c&S will need PICC and terminal operator abx. 2. Microcytic anemia- likely dilutional component. no signs of active bleeding. labs not done today, check CBC and iron studies. transfuse for hgb <7 3. DM- A1c 12.4. increase levemir AM to 30units. will keep HS dose the same. iss,bgm, levemir BID 4. DVT ppx- hep sq
[2016-10-25 13:53] LABS: MCH 25.4 pg (25.7-33.7); MEAN CELL VOLUME 79.3 fl (80-96); MEAN PLT VOLUME 7.4 fl (7.5-11.1); PLATELET COUNT 302 K/MM3 (134-434); RDW 13.1 % (11.9-15.9); WHITE BLOOD COUNT 13.2 K/mm3 (4.0-10.0)
--- NOTE | 2016-10-25 14:41 | PN ---
Physical Exam: SUBJECTIVE: Patient seen and examined Pt is awake, alert and oriented to time place and person and situation Pt was seen this morning with Dr Beckwith who informed the patient about the need to have an amputation Dr Beckwith explained it extremely unlikely to salvage the left great toe with extensive osteomyelitis and necrosis If anything the infection will spread and the patient will loose more than the toe if surgery is not done patient refused and insisting of saving his toe regardless of the risk which includes sepsis, septic shock, . Pt had fever overnight with T max 102.6 Pt has pain but is controlled wit pain medication No dizziness or confusion. OBJECTIVE: Vital Signs Period Temp Pulse Resp BP Sys/Lopez Pulse Ox Last 24 Hr 98.2 F-102.6 F 86-106 20-20 138-153/69-80 90 GENERAL: The patient is awake, alert, and fully oriented, in no acute distress. HEAD: Normal with no signs of trauma. LUNGS: Breath sounds equal, clear to auscultation bilaterally, no wheezes, no crackles, no accessory muscle use. HEART: Regular rate and rhythm, S1, S2 with murmur, rub or gallop. ABDOMEN: Soft, nontender, nondistended, normoactive bowel sounds, no guarding, no rebound, no hepatosplenomegaly, no masses. EXTREMITIES: 2+ pulses, warm, well-perfused, no edema. NEUROLOGICAL: Normal speech, gait not observed. PSYCH: Normal mood, normal affect. SKIN: Warm, dry, normal turgor, no rashes or lesions noted. left great toe with necrotic black eschar in anterior and plantar region, Large ulceraction in plantar region of first digit with yellow bay and mild purulent fluid and foul smell. distal Half of the left foot have redness and discoloration and tenderness. Left lower extremities with swelling and warmer than right foot. Doppler pulse in doralis pedis in left foot. Laboratory Results - last 24 hr 10/24/16 10/24/16 10/25/16 17:10 21:26 01:38 WBC RBC Hgb Hct MCV MCHC RDW Plt Count MPV POC Glucometer 296 293 239 Ferritin Blood Type Antibody Screen 10/25/16 10/25/16 10/25/16 06:34 07:35 08:06 WBC RBC Hgb Hct MCV MCHC RDW Plt Count MPV POC Glucometer 130 129 Ferritin Blood Type O NEGATIVE Antibody Screen Negative 10/25/16 10/25/16 10/25/16 08:59 11:21 12:45 WBC 13.2 H RBC 3.35 L Hgb 8.5 L Hct 26.6 L MCV 79.3 L MCHC 32.0 RDW 13.1 Plt Count 302 MPV 7.4 L POC Glucometer 134 Ferritin Blood Type O NEGATIVE Antibody Screen 10/25/16 10/25/16 13:10 14:04 WBC RBC Hgb Hct MCV MCHC RDW Plt Count MPV POC Glucometer 131 Ferritin 1501.028 H Blood Type Antibody Screen Active Medications Generic Name Dose Route Start Last Admin Trade Name Freq PRN Reason Stop Dose Admin Acetaminophen 650 mg 10/23/16 15:19 10/25/16 06:38 Tylenol - PO 650 mg Q4H PRN Administration FEVER OR PAIN Clopidogrel Bisulfate 75 mg 10/24/16 10:00 10/24/16 09:36 Plavix - PO 75 mg DAILY [facility] Administration Collagenase 1 applic 10/23/16 18:30 10/25/16 09:43 Santyl - TP Not Given DAILY [facility] Docusate Sodium 100 mg 10/23/16 22:00 10/25/16 14:06 Colace - PO Not Given TID [facility] Heparin Sodium (Porcine) 5,000 unit 10/23/16 22:00 10/25/16 14:05 Heparin - SQ 5,000 unit TID [facility] Administration Vancomycin HCl 1,250 mg/ 250 mls @ 125 mls/hr 10/24/16 23:00 10/24/16 22:12 Dextrose IVPB 125 mls/hr DAILY@2300 [facility] Administration Protocol Insulin Aspart 1 vial 10/24/16 22:00 10/25/16 14:06 Novolog Vial Sliding Scale - SQ Not Given Q4HPO [facility] Protocol Insulin Detemir 15 units 10/23/16 22:00 10/24/16 21:29 Levemir Vial SQ 15 units HS [facility] Administration Insulin Detemir 25 units 10/24/16 07:00 10/25/16 06:37 Levemir Vial SQ 25 unit AM [facility] Administration Oxycodone HCl 5 mg 10/24/16 07:35 10/25/16 06:40 Roxicodone - PO 5 mg Q4H PRN Administration PAIN Piperacillin Sod/Tazobactam Sod 3.375 gm 10/24/16 02:00 10/25/16 09:44 Zosyn 3.375gm Ivpb (Pre-Docked) IVPB 3.375 gm Q8H-IV [facility] Administration CBC, BMP 10/25/16 12:45 10/24/16 07:50 Microbiology 10/23/16 12:30 Foot - Left Plantar Wound Culture - Preliminary Staphylococcus Latex Coag Pos Strep Agalactiae Group B Group D Strep Or Entero Coccus Pending Organism 10/23/16 12:30 Foot - Left Plantar Wound Culture - Preliminary Staphylococcus Aureus Strep Agalactiae Group B Group D Strep Or Entero Coccus Diphtheroid/Corynebacterium 10/23/16 12:30 Blood - Peripheral Venous Blood Culture - Preliminary NO GROWTH OBTAINED AFTER 48 HOURS, INCUBATION TO CONTINUE FOR 3 DAYS. 10/23/16 12:30 Blood - Peripheral Venous Blood Culture - Preliminary NO GROWTH OBTAINED AFTER 48 HOURS, INCUBATION TO CONTINUE FOR 3 DAYS. 10/23/16 12:30 Blood - Peripheral Venous Blood Culture - Preliminary NO GROWTH OBTAINED AFTER 24 HOURS, INCUBATION TO CONTINUE FOR 4 DAYS. 10/23/16 12:30 Blood - Peripheral Venous Blood Culture - Preliminary NO GROWTH OBTAINED AFTER 24 HOURS, INCUBATION TO CONTINUE FOR 4 DAYS. Laboratory Tests 10/24/16 10/24/16 07:50 07:50 Hemoglobin A1c % 12.4 H D Calcium 7.8 L Alkaline Phosphatase 141 H Total Protein 5.7 L Albumin 1.9 L D ASSESSMENT/PLAN: 56 year old male with pmh of uncontrolled diabetes and grangrenous left foot s/ p angiopaslty on 08/2016 was admitted for osteomyelitis of left great toe. Sepsis secondary osteomyelitis of left great toe WBC 12, fever 103.8, Xray left foot showed osteomyelitis Start vancomycin and Zosyn in ED ID consulted Dr Cedeno Continue Zosyn and Vancomycin He recommends MRI of left lower ext which showed osteomylitis of the distal phalynx and possible osteomylitis of proximal phalynx Roxicodone 5mg po q4h Vascular surgery consulted he recommends to continue medical therapy but we may end up amputating if no improvement due to questionable healing Continue dressing with Santyl daily Dr Beckwith consulted, saw patient and strongly recommended amputation but patient refused medical team explained the necessity to have amputation of the left great toe and the risks of not doing that, pt still refused Dr Cedeno, infectious disease explained to the patient the urgency of having the amputation but patient still refused Capacity In the setting of a patient refusing lifesaving care, we need to assess patient capacity to make decisions. will assess patient understanding, the ability to understand and know the meaning of information provided. patient will need to express a choice, clearly communicate a choice while presented with multiple treatment options Pt needs to appreciate that choice. He needs to know the facts and apply those facts to his own life, he need to have the ability to recognize how facts are relevant to him Patient need to have a reasoning behind that choice. He needs to be able to compare options and to infer consequences of a choice Dr Mckeon, psychiatry consulted to assess Decision making capacity Uncontrolled Diabetes No insurance to get medication Pt said he controlled his diabetes with diet, he does not check his medication hgba1c was 11.8 in august, now it is 12.4 On Levemir 25 units qAM and Levemir 15 units qhs, Patient still needs 16 units coverage over the last 24 hours Will increase AM levemir to 30 units Novolog sliding scale HTN patient BP was between 138-153, which is above the goal for a diabetic with hypertension Will start Low dose DIAZ, Lisinopril 10mg PO daily Anemia Hgb 8.5 iron studies ordered Pending result FEN Fluid: none Electrolytes: no abnormalities Nutrition: diabetic diet Disposition: keep in medsurg pending resolution of sepsis and management of osteomyelitis Visit type - Emergency Visit Emergency Visit: Yes ED Registration Date: 10/23/16 Care time: The patient presented to the Emergency Department on the above date and was hospitalized for further evaluation of their emergent condition. - New Patient This patient is new to me today: Yes Date on this admission: 10/25/16 - Critical Care Critical Care patient: No - Discharge Referral Referred to [facility] Med P.C.: No
--- NOTE | 2016-10-25 16:06 | CON.PSY ---
Psychiatry Consult Chief Complaint: I am not crazy. - Previous Psychiatric Treatment Outpatient: None Inpatient: None - Previous Substance Abuse Treatment Outpatient: None Inpatient: None - Current Medications Current Medications: Active Medications Acetaminophen (Tylenol -) 650 mg PO Q4H PRN PRN Reason: FEVER OR PAIN Last Admin: 10/25/16 06:38 Dose: 650 mg Clopidogrel Bisulfate (Plavix -) 75 mg PO DAILY [facility] Last Admin: 10/24/16 09:36 Dose: 75 mg Collagenase (Santyl -) 1 applic TP DAILY [facility] Last Admin: 10/25/16 09:43 Dose: Not Given Docusate Sodium (Colace -) 100 mg PO TID [facility] Last Admin: 10/25/16 14:06 Dose: Not Given Heparin Sodium (Porcine) (Heparin -) 5,000 unit SQ TID [facility] Last Admin: 10/25/16 14:05 Dose: 5,000 unit Vancomycin HCl 1,250 mg/ (Dextrose) 250 mls @ 125 mls/hr IVPB DAILY@2300 [facility] PRN Reason: Protocol Last Admin: 10/24/16 22:12 Dose: 125 mls/hr Insulin Aspart (Novolog Vial Sliding Scale -) 1 vial SQ Q4HPO [facility] PRN Reason: Protocol Last Admin: 10/25/16 14:06 Dose: Not Given Insulin Detemir (Levemir Vial) 15 units SQ HS [facility] Last Admin: 10/24/16 21:29 Dose: 15 units Insulin Detemir (Levemir Vial) 30 units SQ AM [facility] Lisinopril (Prinivil) 10 mg PO DAILY [facility] Oxycodone HCl (Roxicodone -) 5 mg PO Q4H PRN PRN Reason: PAIN Last Admin: 10/25/16 06:40 Dose: 5 mg Piperacillin Sod/Tazobactam Sod (Zosyn 3.375gm Ivpb (Pre-Docked)) 3.375 gm IVPB Q8H-IV [facility] Last Admin: 10/25/16 09:44 Dose: 3.375 gm - Allergies Allergies: Allergies Allergy/AdvReac Type Severity Reaction Status Date / Time No Known Allergies Allergy Verified 10/23/16 11:32 - Current Living Status Usual Living Arrangement: Alone - Current Mental Status Evaluation Appearance: Well Groomed Attitude: Cooperative - Affect Affect: Full Range Appropriateness: Appropriate to Content - Mood Mood: Euthymic - Speech/Language Expressive: Coherent - Psychomotor Activity Psychomotor Activity: Normal - Thought Process Thought Process: Intact - Thought Content Hallucinations: Absent Delusions: Absent - Self Perception Self Perception: No Impairment - Cognition Attention: Alert Orientation: Time Memory, Immediate Recall: Intact Memory, Short Term: 3/3 Memory, Remote with Promptin/3 - Concentration Serial Sevens Intact: Yes Simple Calculations Intact: Yes - Abstraction Proverb Interpretation: Intact Judgement: Intact - Insight Insight: Intact - Impulse Control Impulse Control: Good Control - Suicidal Ideation Suicidal Ideation: No - Homicidal Ideation Homicidal Ideation: No Assessment/Plan Patient has the mental capacity at this time.
[2016-10-25] MEDS: LISINOPRIL 10 MG TABLET (FP) PO SCH (17:13)
[2016-10-25] MEDS: VANCOMYCIN 1,250 MG in DEXTROSE 5%-WATER - 250 ML IVPB SCH (23:51)
[2016-10-26] MEDS: ACETAMINOPHEN 325 MG TABLET (FP) PO PRN ×3 (01:41→18:09)
[2016-10-26] MEDS: PIPERACILLIN/TAZOB 3.375 GM/50 ML PRE-DOCKED IVPB SCH ×4 (02:32→18:47)
[2016-10-26] MEDS: INSULIN SLIDING SCALE (NOVOLOG) 1 VIAL SQ SCH ×6 (02:35→22:59)
[2016-10-26] MEDS: DOCUSATE SODIUM 100 MG CAPSULE (FP) PO SCH ×3 (06:35→22:56)
[2016-10-26] MEDS: HEPARIN NA (PORCINE) 5,000 UNITS/ML 1ML VIAL SQ SCH ×3 (06:35→22:56)
[2016-10-26] MEDS: INSULIN DETEMIR 100 UNITS/ML MDV SQ SCH ×2 (06:38→22:57)
[2016-10-26 08:07] LABS: SERUM IRON 26 ug/dL (38-169); TOTAL IRON BINDING CAPACITY 154 ug/dL (250-450); UIBC 128 ug/dL (111-343)
[2016-10-26 08:16] LABS: MCH 25.7 pg (25.7-33.7); MCHC 32.6 g/dl (32.0-35.9); MEAN CELL VOLUME 78.9 fl (80-96); MEAN PLT VOLUME 7.2 fl (7.5-11.1); PLATELET COUNT 336 K/MM3 (134-434); RDW 13.8 % (11.9-15.9)
[2016-10-26] MEDS: oxyCODONE HCL 5 MG TABLET PO PRN ×2 (08:38→17:43)
--- NOTE | 2016-10-26 09:06 | PN ---
Progress Note (short form) - Note Progress Note: currently experiencing chills. continues to have foot pain which is relieved with pain medication. denies CP, SOB, N/V/C/D Current Medications Generic Name Dose Route Start Last Admin Trade Name Freq PRN Reason Stop Dose Admin Acetaminophen 650 mg 10/23/16 15:19 10/26/16 01:41 Tylenol - PO 650 mg Q4H PRN Administration FEVER OR PAIN Clopidogrel Bisulfate 75 mg 10/24/16 10:00 10/24/16 09:36 Plavix - PO 75 mg DAILY [facility] Administration Collagenase 1 applic 10/23/16 18:30 10/25/16 09:43 Santyl - TP Not Given DAILY [facility] Docusate Sodium 100 mg 10/23/16 22:00 10/26/16 06:35 Colace - PO 100 mg TID [facility] Administration Heparin Sodium (Porcine) 5,000 unit 10/23/16 22:00 10/26/16 06:35 Heparin - SQ 5,000 unit TID [facility] Administration Vancomycin HCl 1,250 mg/ 250 mls @ 125 mls/hr 10/24/16 23:00 10/25/16 23:51 Dextrose IVPB 125 mls/hr DAILY@2300 [facility] Administration Protocol Insulin Aspart 1 vial 10/24/16 22:00 10/26/16 06:35 Novolog Vial Sliding Scale - SQ Not Given Q4HPO [facility] Protocol Insulin Detemir 15 units 10/23/16 22:00 10/25/16 22:49 Levemir Vial SQ 15 units HS [facility] Administration Insulin Detemir 30 units 10/26/16 07:00 10/26/16 06:38 Levemir Vial SQ 30 units AM [facility] Administration Lisinopril 10 mg 10/25/16 15:30 10/25/16 17:13 Prinivil PO 10 mg DAILY [facility] Administration Oxycodone HCl 5 mg 10/24/16 07:35 10/26/16 08:38 Roxicodone - PO 5 mg Q4H PRN Administration PAIN Piperacillin Sod/Tazobactam Sod 3.375 gm 10/24/16 02:00 10/26/16 02:32 Zosyn 3.375gm Ivpb (Pre-Docked) IVPB 3.375 gm Q8H-IV [facility] Administration Last Vital Signs Temp Pulse Resp BP Pulse Ox 100.2 F H 90 16 134/73 94 L 10/26/16 07:34 10/26/16 07:34 10/26/16 07:34 10/26/16 07:34 10/25/16 21:00 General lethargic CV S1 S2 RRR no murmur/rub/gallop Lungs CTA B/L no wheezing/rales/rhonchi Extremities L foot wrapped in dressing. c/d/i CBCD WBC 14.0 K/mm3 (4.0-10.0) H 10/26/16 07:00 RBC 3.11 M/mm3 (4.00-5.60) L 10/26/16 07:00 Hgb 8.0 GM/dL (11.7-16.9) L 10/26/16 07:00 Hct 24.6 % (35.4-49) L 10/26/16 07:00 MCV 78.9 fl (80-96) L 10/26/16 07:00 MCHC 32.6 g/dl (32.0-35.9) 10/26/16 07:00 RDW 13.8 % (11.9-15.9) 10/26/16 07:00 Plt Count 336 K/MM3 (134-434) 10/26/16 07:00 MPV 7.2 fl (7.5-11.1) L 10/26/16 07:00 Microbiology 10/24/16 10:56 Gram Stain - Final Foot - Left Plantar 10/23/16 12:30 Gram Stain - Final Foot - Left Plantar Wound Culture - Preliminary Staphylococcus Aureus Strep Agalactiae Group B Group D Strep Or Entero Coccus Diphtheroid/Corynebacterium 10/23/16 12:30 Blood Culture - Preliminary Blood - Peripheral Venous NO GROWTH OBTAINED AFTER 48 HOURS, INCUBATION TO CONTINUE FOR 3 DAYS. 10/23/16 12:30 Blood Culture - Preliminary Blood - Peripheral Venous NO GROWTH OBTAINED AFTER 48 HOURS, INCUBATION TO CONTINUE FOR 3 DAYS. ASSESSMENT AND PLAN: 56yo M with PMH DM presented to the ER and was admitted for further evalution of their emergent condition 1. 1st toe L foot OM-Tm 102.2. Wcx with polyorganism including MSSA. will d/w ID about changing abx at this time vs suspicion that Vanco level is subtherapeutic. will check trough tonight before the 4th dose. abx per ID. pt conintues to refuse amputation at this time. competent to make his own decisions by psychiatry. 2. Microcytic anemia- likely dilutional component. no signs of active bleeding. +iron def anemia. start iron. educated on constipation and black stools side effect. transfuse for hgb <7 3. DM- A1c 12.4. improved. cont current dosing. iss,bgm, levemir BID 4. DVT ppx- hep sq Visit type - Emergency Visit Emergency Visit: Yes ED Registration Date: 10/23/16 Care time: The patient presented to the Emergency Department on the above date and was hospitalized for further evaluation of their emergent condition. - New Patient This patient is new to me today: No - Critical Care Critical Care patient: No - Discharge Referral Referred to [facility] Med P.C.: No
[2016-10-26] MEDS: CLOPIDOGREL BISULFATE 75 MG TABLET (FP) PO SCH (10:25)
[2016-10-26] MEDS: LISINOPRIL 10 MG TABLET (FP) PO SCH (10:25)
--- NOTE | 2016-10-26 12:37 | PN ---
Progress Note, Physician History of Present Illness: patient doing well no complaints - Current Medication List Current Medications: Active Medications Acetaminophen (Tylenol -) 650 mg PO Q4H PRN PRN Reason: FEVER OR PAIN Last Admin: 10/26/16 10:34 Dose: 650 mg Clopidogrel Bisulfate (Plavix -) 75 mg PO DAILY [facility] Last Admin: 10/26/16 10:25 Dose: 75 mg Collagenase (Santyl -) 1 applic TP DAILY [facility] Last Admin: 10/25/16 09:43 Dose: Not Given Docusate Sodium (Colace -) 100 mg PO TID [facility] Last Admin: 10/26/16 06:35 Dose: 100 mg Ferrous Sulfate (Feosol -) 325 mg PO BIDWM [facility] Heparin Sodium (Porcine) (Heparin -) 5,000 unit SQ TID [facility] Last Admin: 10/26/16 06:35 Dose: 5,000 unit Vancomycin HCl 1,250 mg/ (Dextrose) 250 mls @ 125 mls/hr IVPB DAILY@2200 [facility] PRN Reason: Protocol Insulin Aspart (Novolog Vial Sliding Scale -) 1 vial SQ Q4HPO [facility] PRN Reason: Protocol Last Admin: 10/26/16 10:09 Dose: Not Given Insulin Detemir (Levemir Vial) 15 units SQ HS [facility] Last Admin: 10/25/16 22:49 Dose: 15 units Insulin Detemir (Levemir Vial) 30 units SQ AM [facility] Last Admin: 10/26/16 06:38 Dose: 30 units Lisinopril (Prinivil) 10 mg PO DAILY [facility] Last Admin: 10/26/16 10:25 Dose: 10 mg Oxycodone HCl (Roxicodone -) 5 mg PO Q4H PRN PRN Reason: PAIN Last Admin: 10/26/16 08:38 Dose: 5 mg Piperacillin Sod/Tazobactam Sod (Zosyn 3.375gm Ivpb (Pre-Docked)) 3.375 gm IVPB Q8H-IV [facility] Last Admin: 10/26/16 10:25 Dose: 3.375 gm - Objective Vital Signs: Vital Signs Temperature 100.6 F H 10/26/16 10:23 Pulse Rate 96 H 10/26/16 10:03 Respiratory Rate 20 10/26/16 10:03 Blood Pressure 142/72 10/26/16 10:03 O2 Sat by Pulse Oximetry (%) 94 L 10/25/16 21:00 Constitutional: Yes: No Distress, Calm Cardiovascular: Yes: Regular Rate and Rhythm Respiratory: Yes: Regular, CTA Bilaterally Gastrointestinal: Yes: Normal Bowel Sounds, Soft Musculoskeletal: Yes: Other Extremities: Yes: Other Integumentary: Yes: Erythema, Other Wound/Incision: Yes: Dressing Dry and Intact Neurological: Yes: Alert, Oriented Psychiatric: Yes: Alert, Oriented Labs: CBC, BMP 10/26/16 07:00 10/24/16 07:50 INR, PTT INR 1.36 (0.82-1.09) H 10/24/16 07:50 Assessment/Plan osteo of the left toe wound infection dm plan patients needs amputation has osteo mri seen and result noted await for cx results continue abx
--- NOTE | 2016-10-26 13:49 | PN ---
Progress Note (short form) - Note Progress Note: Vascular Surgery Pt seen and examined. Temps on and off. Spoke to pt about condition at length. Dressing changed. Strongly suggested left great toe amputation. Pt will reconsider, needs to think about it. Spoke to pt that he has limited blood flow to begin with and cannot afford to lose more of his foot. Luis Manuel Ponce DO
[2016-10-26] MEDS: COLLAGENASE CLOSTRIDIUM HIST. 30 GRAMS TUBE TP SCH (14:51)
[2016-10-26] MEDS: FERROUS SO4 325 MG TABLET (FP) PO SCH (17:43)
[2016-10-26] MEDS ORDERED: VANCOMYCIN 1,250 MG in DEXTROSE 5%-WATER - 250 ML IVPB SCH (22:00)
[2016-10-27] MEDS: oxyCODONE HCL 5 MG TABLET PO PRN ×2 (01:36→06:26)
[2016-10-27] MEDS: PIPERACILLIN/TAZOB 3.375 GM/50 ML PRE-DOCKED IVPB SCH ×2 (01:36→09:46)
[2016-10-27] MEDS: INSULIN SLIDING SCALE (NOVOLOG) 1 VIAL SQ SCH ×6 (01:39→21:12)
[2016-10-27] MEDS: ACETAMINOPHEN 325 MG TABLET (FP) PO PRN ×4 (01:40→20:21)
[2016-10-27] MEDS: HEPARIN NA (PORCINE) 5,000 UNITS/ML 1ML VIAL SQ SCH ×3 (06:17→21:11)
[2016-10-27] MEDS: DOCUSATE SODIUM 100 MG CAPSULE (FP) PO SCH ×3 (06:19→21:12)
[2016-10-27] MEDS: INSULIN DETEMIR 100 UNITS/ML MDV SQ SCH ×2 (06:21→22:41)
[2016-10-27 07:57] LABS: MCHC 32.8 g/dl (32.0-35.9); MEAN CELL VOLUME 79.3 fl (80-96); MEAN PLT VOLUME 7.5 fl (7.5-11.1); PLATELET COUNT 378 K/MM3 (134-434); RDW 13.9 % (11.9-15.9); WHITE BLOOD COUNT 19.1 K/mm3 (4.0-10.0)
[2016-10-27] MEDS: LISINOPRIL 10 MG TABLET (FP) PO SCH (09:46)
[2016-10-27] MEDS: CLOPIDOGREL BISULFATE 75 MG TABLET (FP) PO SCH (09:46)
[2016-10-27] MEDS ORDERED: VANCOMYCIN 1,250 MG in DEXTROSE 5%-WATER - 250 ML IVPB ONE (11:00)
[2016-10-27] MEDS: COLLAGENASE CLOSTRIDIUM HIST. 30 GRAMS TUBE TP SCH (11:00)
[2016-10-27] MEDS: FERROUS SO4 325 MG TABLET (FP) PO SCH ×2 (11:14→18:44)
--- NOTE | 2016-10-27 12:59 | PN ---
Teaching Attending Note Name of Resident: Eulogio Wiley ATTENDING PHYSICIAN STATEMENT I saw and evaluated the patient. I reviewed the resident's note and discussed the case with the resident. I agree with the resident's findings and plan as documented. SUBJECTIVE:states he feels tired because he is constantly woken up by nursing staff for vitals and wants to sleep. denies Cp, SOB, fever, chills OBJECTIVE: Last Vital Signs Temp Pulse Resp BP Pulse Ox 100.0 F H 88 20 131/64 94 L 10/27/16 10:00 10/27/16 10:00 10/27/16 10:00 10/27/16 10:00 10/26/16 22:00 General NAD, flat affect Extremities- black eschar on tip of Left 1st digit plantar aspect of toe with ulcer no active drainage, 1+ pitting edema. no erythema on the forefoot ASSESSMENT AND PLAN: 56yo M with PMH DM presented to the ER and was admitted for further evalution of their emergent condition 1. 1st toe L foot OM-Tm 103. BCx re-sent due to repeated fevers however likely due to subtherapeutic vanco level. will increase vanco to 1g BID. on zosyn. pt not thinking it may want amputation as he does not want to loose more of his foot. wants to speak with podiatry tomorrow and not today as he is too tired. polyorgansims on WCx. ID, podiatry and vascular surgery on board. will d/w with podiatry tomorrow. pain control 2. Microcytic anemia- likely dilutional component. no signs of active bleeding. +iron def anemia. on supplementation. transfuse for hgb <7 3. DM- A1c 12.4. improved. cont current dosing. iss,bgm, levemir BID 4. DVT ppx- hep sq
--- NOTE | 2016-10-27 13:52 | PN ---
Physical Exam: SUBJECTIVE: Patient seen and examined Still having fever and chills overnight Pt still not coming to term to need of amputation of left great which is infected Pt say he will consider amputation but needs more time to think no n/v Denies pain in lower ext OBJECTIVE: Vital Signs Period Temp Pulse Resp BP Sys/Lopez Pulse Ox Last 24 Hr 100.0 F-103.0 F 88-109 18-24 129-146/64-77 94 GENERAL: The patient is awake, alert, and fully oriented, in no acute distress. HEAD: Normal with no signs of trauma. LUNGS: Breath sounds equal, clear to auscultation bilaterally, no wheezes, no crackles, no accessory muscle use. HEART: Regular rate and rhythm, S1, S2 with murmur, rub or gallop. ABDOMEN: Soft, nontender, nondistended, normoactive bowel sounds, no guarding, no rebound, no hepatosplenomegaly, no masses. EXTREMITIES: 2+ pulses, warm, well-perfused, no edema. NEUROLOGICAL: Normal speech, gait not observed. PSYCH: Normal mood, normal affect. SKIN: Warm, dry, normal turgor, no rashes or lesions noted. left great toe with necrotic black eschar in anterior and plantar region, Large ulceraction in plantar region of first digit with yellow bay and mild purulent fluid and foul smell. distal Half of the left foot have redness and discoloration and tenderness. Left lower extremities with swelling and warmer than right foot. Doppler pulse in doralis pedis in left foot. Laboratory Results - last 24 hr 10/26/16 10/26/16 10/26/16 14:22 17:48 21:30 WBC RBC Hgb Hct MCV MCHC RDW Plt Count MPV Neutrophils % Lymphocytes % Monocytes % Eosinophils % Band Neutrophils POC Glucometer 125 110 Vancomycin Trough 3.792 L* 10/26/16 10/27/16 10/27/16 22:55 01:39 06:10 WBC 19.1 H D RBC 2.84 L Hgb 7.4 L Hct 22.5 L MCV 79.3 L MCHC 32.8 RDW 13.9 Plt Count 378 MPV 7.5 Neutrophils % 71.0 Lymphocytes % 22.0 D Monocytes % 7.0 Eosinophils % 0.0 D Band Neutrophils 0.0 POC Glucometer 211 195 Vancomycin Trough 10/27/16 10/27/16 06:16 10:03 WBC RBC Hgb Hct MCV MCHC RDW Plt Count MPV Neutrophils % Lymphocytes % Monocytes % Eosinophils % Band Neutrophils POC Glucometer 113 92 Vancomycin Trough Active Medications Generic Name Dose Route Start Last Admin Trade Name Freq PRN Reason Stop Dose Admin Acetaminophen 650 mg 10/27/16 08:21 Tylenol - PO Q4H PRN FOR TEMPERATURE >101/PAIN Clopidogrel Bisulfate 75 mg 10/24/16 10:00 10/27/16 09:46 Plavix - PO 75 mg DAILY [facility] Administration Collagenase 1 applic 10/23/16 18:30 10/26/16 14:51 Santyl - TP 1 applic DAILY [facility] Administration Docusate Sodium 100 mg 10/23/16 22:00 10/27/16 06:19 Colace - PO Not Given TID [facility] Ferrous Sulfate 325 mg 10/26/16 17:30 10/27/16 11:14 Feosol - PO 325 mg BIDWM [facility] Administration Heparin Sodium (Porcine) 5,000 unit 10/23/16 22:00 10/27/16 06:17 Heparin - SQ 5,000 unit TID [facility] Administration Vancomycin HCl 1,250 mg/ 250 mls @ 125 mls/hr 10/27/16 10:00 Dextrose IVPB Q12H [facility] Protocol Vancomycin HCl 1,000 mg/ 250 mls @ 200 mls/hr 10/27/16 13:15 Dextrose IVPB Q12H [facility] Insulin Aspart 1 vial 10/24/16 22:00 10/27/16 10:07 Novolog Vial Sliding Scale - SQ Not Given Q4HPO [facility] Protocol Insulin Detemir 15 units 10/23/16 22:00 10/26/16 22:57 Levemir Vial SQ 15 units HS [facility] Administration Insulin Detemir 30 units 10/26/16 07:00 10/27/16 06:21 Levemir Vial SQ 30 units AM [facility] Administration Lisinopril 10 mg 10/25/16 15:30 10/27/16 09:46 Prinivil PO 10 mg DAILY [facility] Administration Oxycodone HCl 5 mg 10/24/16 07:35 10/27/16 06:26 Roxicodone - PO 5 mg Q4H PRN Administration PAIN Piperacillin Sod/Tazobactam Sod 3.375 gm 10/24/16 02:00 10/27/16 09:46 Zosyn 3.375gm Ivpb (Pre-Docked) IVPB 3.375 gm Q8H-IV [facility] Administration CBC, BMP 10/27/16 06:10 10/24/16 07:50 ASSESSMENT/PLAN: 56 year old male with pmh of uncontrolled diabetes and grangrenous left foot s/ p angiopaslty on 08/2016 was admitted for osteomyelitis of left great toe. Sepsis secondary osteomyelitis of left great toe WBC 12, fever 103.8, Xray left foot showed osteomyelitis on admisison Received vancomycin and Zosyn in ED ID consulted Dr Cedeno Continue Zosyn and Vancomycin Low through, will increase IV Vancomycin to BID Wound culture is positive for Staph Aureus, strep agalactiae, entercoccus, all sensitive to penicillins. Therefore Vanco may not be needed. Will wait for ID input. check through in am Roxicodone 5mg po q4h Dr Beckwith consulted, saw patient and strongly recommended amputation but patient refused Dr Ponce recommends amputation patient said he would think about it Capacity Dr diehl said pt had capacity for medical decisions Will reiterate to the patient necessity to remove the source of infection as antibiotic will not be enough to treat the infection. Uncontrolled Diabetes hgba1c was 11.8 in august, now it is 12.4 Only 6 units coverage in last 24 hours On Levemir 30 units qAM and Levemir 15 units qhs, Novolog sliding scale HTN Controlled Lisinopril 10mg PO daily Anemia Hgb7.4 fesol 325mg po BIDWM FEN Fluid: none Electrolytes: no abnormalities Nutrition: diabetic diet Disposition: keep in medsur pending resolution of sepsis and management of osteomyelitis Visit type - Emergency Visit Emergency Visit: Yes ED Registration Date: 10/23/16 Care time: The patient presented to the Emergency Department on the above date and was hospitalized for further evaluation of their emergent condition. - New Patient This patient is new to me today: Yes Date on this admission: 10/27/16 - Critical Care Critical Care patient: No - Discharge Referral Referred to [facility] Med P.C.: No
--- NOTE | 2016-10-27 14:40 | PN ---
Progress Note, Physician History of Present Illness: patient spiking fevers does not feel very well fever as high 101 and spike last night also to 103 - Current Medication List Current Medications: Active Medications Acetaminophen (Tylenol -) 650 mg PO Q4H PRN PRN Reason: FOR TEMPERATURE >101/PAIN Last Admin: 10/27/16 14:08 Dose: 650 mg Clopidogrel Bisulfate (Plavix -) 75 mg PO DAILY [facility] Last Admin: 10/27/16 09:46 Dose: 75 mg Collagenase (Santyl -) 1 applic TP DAILY [facility] Last Admin: 10/27/16 11:00 Dose: 1 applic Docusate Sodium (Colace -) 100 mg PO TID [facility] Last Admin: 10/27/16 14:04 Dose: 100 mg Ferrous Sulfate (Feosol -) 325 mg PO BIDWM [facility] Last Admin: 10/27/16 11:14 Dose: 325 mg Heparin Sodium (Porcine) (Heparin -) 5,000 unit SQ TID [facility] Last Admin: 10/27/16 14:05 Dose: 5,000 unit Ampicillin Sodium 1 gm/ Sodium (Chloride) 100 mls @ 200 mls/hr IVPB Q6H-IV [facility] Ceftriaxone Sodium 2 gm/ (Dextrose) 100 mls @ 200 mls/hr IVPB DAILY [facility] Insulin Aspart (Novolog Vial Sliding Scale -) 1 vial SQ Q4HPO [facility] PRN Reason: Protocol Last Admin: 10/27/16 10:07 Dose: Not Given Insulin Detemir (Levemir Vial) 15 units SQ HS [facility] Last Admin: 10/26/16 22:57 Dose: 15 units Insulin Detemir (Levemir Vial) 30 units SQ AM [facility] Last Admin: 10/27/16 06:21 Dose: 30 units Lisinopril (Prinivil) 10 mg PO DAILY [facility] Last Admin: 10/27/16 09:46 Dose: 10 mg Oxycodone HCl (Roxicodone -) 5 mg PO Q4H PRN PRN Reason: PAIN Last Admin: 10/27/16 06:26 Dose: 5 mg - Objective Vital Signs: Vital Signs Temperature 100.0 F H 10/27/16 10:00 Pulse Rate 88 10/27/16 10:00 Respiratory Rate 20 10/27/16 10:00 Blood Pressure 131/64 10/27/16 10:00 O2 Sat by Pulse Oximetry (%) 94 L 10/27/16 09:00 Constitutional: Yes: Calm, Mild Distress Cardiovascular: Yes: Regular Rate and Rhythm Respiratory: Yes: Regular, CTA Bilaterally Gastrointestinal: Yes: Normal Bowel Sounds, Soft Musculoskeletal: Yes: WNL Extremities: Yes: Other Wound/Incision: Yes: Dressing Dry and Intact Neurological: Yes: Alert, Oriented Psychiatric: Yes: Alert, Oriented Labs: CBC, BMP 10/27/16 06:10 10/24/16 07:50 INR, PTT INR 1.36 (0.82-1.09) H 10/24/16 07:50 Assessment/Plan osteo of the left toe wound infection dm plan abx adjusted sensitivities noted dw the patient the source coming from his toe needs amputation if patient continues to spike fevers will switch to cefazolin
[2016-10-27] MEDS ORDERED: VANCOMYCIN 1,250 MG in DEXTROSE 5%-WATER - 250 ML IVPB SCH ×2 (15:00→23:00)
[2016-10-27] MEDS: CEFTRIAXONE 100 ML IVPB SCH (16:34)
[2016-10-27] MEDS: AMPICILLIN - 100 ML IVPB SCH ×2 (17:31→21:11)
[2016-10-27] MEDS ORDERED: INSULIN (NOVOLOG) ASPART 100 UNITS/ML 10ML VIAL ONE (20:52)
[2016-10-27] MEDS ORDERED: VANCOMYCIN 1 GRAM (PRE-DOCKED) 250 ML IVPB ONE (22:00)
[2016-10-28] MEDS: INSULIN SLIDING SCALE (NOVOLOG) 1 VIAL SQ SCH ×6 (02:06→22:06)
[2016-10-28] MEDS: AMPICILLIN - 100 ML IVPB SCH ×4 (02:06→22:01)
[2016-10-28] MEDS: ACETAMINOPHEN 325 MG TABLET (FP) PO PRN ×4 (02:10→18:33)
[2016-10-28] MEDS: HEPARIN NA (PORCINE) 5,000 UNITS/ML 1ML VIAL SQ SCH ×3 (06:14→22:01)
[2016-10-28] MEDS: DOCUSATE SODIUM 100 MG CAPSULE (FP) PO SCH ×3 (06:14→22:01)
[2016-10-28] MEDS: INSULIN DETEMIR 100 UNITS/ML MDV SQ SCH ×2 (06:15→22:01)
[2016-10-28 08:18] LABS: MCHC 32.4 g/dl (32.0-35.9); MEAN CELL VOLUME 80.2 fl (80-96); MEAN PLT VOLUME 7.4 fl (7.5-11.1); PLATELET COUNT 423 K/MM3 (134-434)
[2016-10-28] MEDS ORDERED: PT OWN MED DRAWER 7, Y5N ONE ×4 (08:55→21:49)
[2016-10-28] MEDS: oxyCODONE HCL 5 MG TABLET PO PRN ×2 (08:57→18:34)
[2016-10-28] MEDS: FERROUS SO4 325 MG TABLET (FP) PO SCH ×2 (08:57→17:46)
[2016-10-28] MEDS: CLOPIDOGREL BISULFATE 75 MG TABLET (FP) PO SCH (09:34)
[2016-10-28] MEDS: LISINOPRIL 10 MG TABLET (FP) PO SCH (09:34)
[2016-10-28] MEDS: CEFTRIAXONE 100 ML IVPB SCH (09:34)
[2016-10-28] MEDS ORDERED: VANCOMYCIN 1 GRAM (PRE-DOCKED) 250 ML IVPB SCH (11:00)
--- NOTE | 2016-10-28 11:10 | PN ---
Physical Exam: SUBJECTIVE: Patient seen and examined Pt is weak and tired and fatigue Pt had low O2 sat this morning in 80's Pt had fever overnight No chest pain, palpitation, no n/v no dizziness or confusion OBJECTIVE: Vital Signs Period Temp Pulse Resp BP Sys/Lopez Pulse Ox Last 24 Hr 98.4 F-102.9 F 98-105 20-20 129-155/58-88 82-94 GENERAL: The patient is awake, alert, and fully oriented, in no acute distress. HEAD: Normal with no signs of trauma. LUNGS: Breath sounds equal, clear to auscultation bilaterally, no wheezes, no crackles, no accessory muscle use. HEART: Regular rate and rhythm, S1, S2 with systolic and diastolic murmur, no rub or gallop. ABDOMEN: Soft, nontender, nondistended, normoactive bowel sounds, no guarding, no rebound, no hepatosplenomegaly, no masses. EXTREMITIES: 2+ pulses, warm, well-perfused, no edema in upper ext NEUROLOGICAL: Normal speech, gait not observed. PSYCH: Normal mood, normal affect. SKIN: Warm, dry, normal turgor, no rashes or lesions noted. left great toe with necrotic black eschar in anterior and plantar region, Large ulceraction in plantar region of first digit with yellow bay and mild purulent fluid and foul smell. distal Half of the left foot have redness and discoloration and tenderness. Left lower extremities with swelling and warmer than right foot. Doppler pulse in doralis pedis in left foot. Laboratory Results - last 24 hr 10/27/16 10/27/16 10/27/16 14:13 17:48 21:10 WBC RBC Hgb Hct MCV MCHC RDW Plt Count MPV POC Glucometer 116 118 135 10/28/16 10/28/16 10/28/16 02:04 05:42 05:58 WBC 26.0 H D RBC 2.46 L Hgb 6.4 L* D Hct 19.7 L MCV 80.2 MCHC 32.4 RDW 14.0 Plt Count 423 MPV 7.4 L POC Glucometer 156 167 10/28/16 10:16 WBC RBC Hgb Hct MCV MCHC RDW Plt Count MPV POC Glucometer 208 Active Medications Generic Name Dose Route Start Last Admin Trade Name Freq PRN Reason Stop Dose Admin Acetaminophen 650 mg 10/27/16 08:21 10/28/16 06:26 Tylenol - PO 650 mg Q4H PRN Administration FOR TEMPERATURE >101/PAIN Clopidogrel Bisulfate 75 mg 10/24/16 10:00 10/28/16 09:34 Plavix - PO 75 mg DAILY [facility] Administration Collagenase 1 applic 10/23/16 18:30 10/27/16 11:00 Santyl - TP 1 applic DAILY [facility] Administration Docusate Sodium 100 mg 10/23/16 22:00 10/28/16 06:14 Colace - PO Not Given TID [facility] Ferrous Sulfate 325 mg 10/26/16 17:30 10/28/16 08:57 Feosol - PO 325 mg BIDWM [facility] Administration Heparin Sodium (Porcine) 5,000 unit 10/23/16 22:00 10/28/16 06:14 Heparin - SQ 5,000 unit TID [facility] Administration Ampicillin Sodium 100 mls @ 200 mls/hr 10/27/16 15:15 10/28/16 08:59 Ampicillin 1 Gram Ivpb (Pre-Docked) IVPB 200 mls/hr Q6H-IV [facility] Administration Ceftriaxone Sodium 100 mls @ 200 mls/hr 10/27/16 15:15 10/28/16 09:34 Rocephin 2gm Ivpb (Pre-Docked) IVPB 200 mls/hr DAILY [facility] Administration Insulin Aspart 1 vial 10/24/16 22:00 10/28/16 10:18 Novolog Vial Sliding Scale - SQ 4 units Q4HPO [facility] Administration Protocol Insulin Detemir 15 units 10/23/16 22:00 10/27/16 22:41 Levemir Vial SQ Not Given HS [facility] Insulin Detemir 30 units 10/26/16 07:00 10/28/16 06:15 Levemir Vial SQ 30 units AM [facility] Administration Lisinopril 10 mg 10/25/16 15:30 10/28/16 09:34 Prinivil PO 10 mg DAILY [facility] Administration Oxycodone HCl 5 mg 10/24/16 07:35 10/28/16 08:57 Roxicodone - PO 5 mg Q4H PRN Administration PAIN CBC, BMP 10/28/16 05:58 10/24/16 07:50 Microbiology 10/24/16 10:56 Foot - Left Plantar Gram Stain - Final 10/24/16 10:56 Foot - Left Plantar Wound Culture - Final Staphylococcus Aureus Enterococcus Faecalis Strep Agalactiae Group B 10/23/16 12:30 Foot - Left Plantar Gram Stain - Final 10/26/16 18:20 Blood - Peripheral Venous Blood Culture - Preliminary NO GROWTH OBTAINED AFTER 24 HOURS, INCUBATION TO CONTINUE FOR 4 DAYS. 10/23/16 12:30 Foot - Left Plantar Wound Culture - Preliminary Staphylococcus Aureus Strep Agalactiae Group B Enterococcus Faecalis Diphtheroid/Corynebacterium 10/23/16 12:30 Blood - Peripheral Venous Blood Culture - Preliminary NO GROWTH OBTAINED AFTER 96 HOURS, INCUBATION TO CONTINUE FOR 1 DAYS. 10/23/16 12:30 Blood - Peripheral Venous Blood Culture - Preliminary NO GROWTH OBTAINED AFTER 96 HOURS, INCUBATION TO CONTINUE FOR 1 DAYS. Selected Entries 10/28/16 02:16 Temperature 101.9 F H ASSESSMENT/PLAN: 56 year old male with pmh of uncontrolled diabetes and grangrenous left foot s/ p angiopaslty on 08/2016 was admitted for osteomyelitis of left great toe. Sepsis secondary osteomyelitis of left great toe WBC 12, fever 103.8, Xray left foot showed osteomyelitis on admission Received vancomycin and Zosyn in ED ID consulted Dr Cedeno Wound culture is positive for Staph Aureus, strep agalactiae, entercoccus, all sensitive to penicillins. Switched to Ampicillin 1gm q6h yesterday Started on ceftriaxone 2 gm IV daily yesterday Pt is still having fever, since source of infection is still here Roxicodone 5mg po q4h Dr Beckwith consulted, saw patient and strongly recommended amputation but patient refused Dr oPnce recommends amputation patient said he would think about it Pt is more open to amputation, will discuss it more in pm NPO after midnight Acute hypoxic respiratory distress likely rt to decreased oxygen carrying capacity from anemia Place Pt on O2 nasal cannula 2L keep O2 sat above 90% Acute anemia iron deficiency vs anemia of chronic disease vs Sepsis induced hgb 6.4 1 unit PRBC repeat Cbc post transfusion Continue fesol 325mg po BIDWM Uncontrolled Diabetes hgba1c was 11.8 in august, now it is 12.4 Only 4 units coverage in last 24 hours On Levemir 30 units qAM and Levemir 15 units qhs, Novolog sliding scale HTN Controlled Lisinopril 10mg PO daily FEN Fluid: none Electrolytes: no abnormalities Nutrition: diabetic diet Disposition: Pending amputation or left great toe and resolution of sepsis Visit type - Emergency Visit Emergency Visit: Yes ED Registration Date: 10/23/16 Care time: The patient presented to the Emergency Department on the above date and was hospitalized for further evaluation of their emergent condition. - New Patient This patient is new to me today: Yes - Critical Care Critical Care patient: No - Discharge Referral Referred to [facility] Med [facility]C.: No
[2016-10-28 11:15] LABS: PLATELET ESTIMATE ADEQUATE (NORMAL)
[2016-10-28 11:17] LABS: FRAGMENTED CELL 1+; HYPOCHROMIA 2+
--- NOTE | 2016-10-28 12:09 | PN ---
Teaching Attending Note Name of Resident: Eulogio Wiley ATTENDING PHYSICIAN STATEMENT I saw and evaluated the patient. I reviewed the resident's note and discussed the case with the resident. I agree with the resident's findings and plan as documented. SUBJECTIVE: c/o lethargy. states its because he is unable to sleep throughout the night. denies Cp, SOB,fevers, chills, N/v/C/D, melena, BRBPR. is open to having amputation tomorrow. wants to discuss with podiatry OBJECTIVE: Last Vital Signs Temp Pulse Resp BP Pulse Ox 98.4 F 98 H 20 129/58 82 L 10/28/16 09:07 10/28/16 09:07 10/28/16 09:07 10/28/16 09:07 10/28/16 09:00 General NAD, flat affect CV S1 S2 RRR no murmur/rub/gallop Lungs CTA B/L no wheezing/rales/rhonchi Extremities- black eschar on tip of Left 1st digit plantar aspect of toe with ulcer no active drainage, 1+ pitting edema. no erythema on the forefoot rectal refused ASSESSMENT AND PLAN: 56yo M with PMH DM presented to the ER and was admitted for further evalution of their emergent condition 1. 1st toe L foot OM-Tm 102.9. abx switched to Ampicillin/Ceftriaxone. pt now more open to amputation. d/w podiatry who will d/w details in AM but will put him on OR schedule for tomorrow. ID, vasc, and podiatry on board. pain control 2. Microcytic anemia-acute Hgb drop. no signs of bleeding. will txn 1 unit PRBC. check post-txn cbc. monitor for signs of bleeding. refusing rectal at this time. on iron supplements. transfuse for hgb <7 3. Acute hypoxic respiratory failure- as per RN pulse ox <86% this am. pt was asymptomatic at the time. no crackles appreciated on exam. currently 97% on 2L NC. possible symptomatic from anemia. will monitor, if worsens will consider CXR. 4. DM- A1c 12.4. improved. cont current dosing. iss,bgm, levemir BID. will give tonights levemir dose as will not be going into OR until tomorrow evening 5. DVT ppx- hep sq. will hold mornings heparin dose
[2016-10-28] MEDS: COLLAGENASE CLOSTRIDIUM HIST. 30 GRAMS TUBE TP SCH (14:24)
[2016-10-28] MEDS ORDERED: IBUPROFEN 600 MG TABLET (FP) PO ONE (15:39)
[2016-10-28] MEDS: SODIUM CHLORIDE 1,000 ML IV SCH (18:30)
--- NOTE | 2016-10-28 18:52 | PN ---
Progress Note, Physician History of Present Illness: stable still spiking fevers patient has agreed for surgery podiaty to evaluate - Current Medication List Current Medications: Active Medications Acetaminophen (Tylenol -) 650 mg PO Q4H PRN PRN Reason: FOR TEMPERATURE >101/PAIN Last Admin: 10/28/16 18:33 Dose: 650 mg Clopidogrel Bisulfate (Plavix -) 75 mg PO DAILY [facility] Last Admin: 10/28/16 09:34 Dose: 75 mg Collagenase (Santyl -) 1 applic TP DAILY [facility] Last Admin: 10/28/16 14:24 Dose: 1 applic Docusate Sodium (Colace -) 100 mg PO TID [facility] Last Admin: 10/28/16 13:50 Dose: 100 mg Ferrous Sulfate (Feosol -) 325 mg PO BIDWM [facility] Last Admin: 10/28/16 17:46 Dose: 325 mg Heparin Sodium (Porcine) (Heparin -) 5,000 unit SQ TID [facility] Last Admin: 10/28/16 13:50 Dose: 5,000 unit Ampicillin Sodium (Ampicillin 1 Gram Ivpb (Pre-Docked)) 100 mls @ 200 mls/hr IVPB Q6H-IV [facility] Last Admin: 10/28/16 14:25 Dose: 200 mls/hr Sodium Chloride (Normal Saline -) 1,000 mls @ 83 mls/hr IV ASDIR [facility] Last Admin: 10/28/16 18:30 Dose: 83 mls/hr Insulin Aspart (Novolog Vial Sliding Scale -) 1 vial SQ Q4HPO [facility] PRN Reason: Protocol Last Admin: 10/28/16 17:46 Dose: 4 units Insulin Detemir (Levemir Vial) 15 units SQ HS [facility] Last Admin: 10/27/16 22:41 Dose: Not Given Insulin Detemir (Levemir Vial) 30 units SQ AM [facility] Last Admin: 10/28/16 06:15 Dose: 30 units Lisinopril (Prinivil) 10 mg PO DAILY [facility] Last Admin: 10/28/16 09:34 Dose: 10 mg Oxycodone HCl (Roxicodone -) 5 mg PO Q4H PRN PRN Reason: PAIN Last Admin: 10/28/16 18:34 Dose: 5 mg - Objective Vital Signs: Vital Signs Temperature 102.1 F H 10/28/16 16:13 Pulse Rate 111 H 10/28/16 14:25 Respiratory Rate 18 10/28/16 14:25 Blood Pressure 156/84 10/28/16 14:25 O2 Sat by Pulse Oximetry (%) 82 L 10/28/16 09:00 Constitutional: Yes: Calm, Mild Distress Cardiovascular: Yes: Regular Rate and Rhythm Respiratory: Yes: Regular, CTA Bilaterally Gastrointestinal: Yes: Normal Bowel Sounds, Soft Musculoskeletal: Yes: Other Extremities: Yes: Erythema (of the toe), Other Integumentary: Yes: Erythema Wound/Incision: Yes: Dressing Dry and Intact Neurological: Yes: Alert, Oriented Psychiatric: Yes: Alert, Oriented Labs: CBC, BMP 10/28/16 05:58 10/24/16 07:50 INR, PTT INR 1.36 (0.82-1.09) H 10/24/16 07:50 Assessment/Plan osteo of the left toe wound infection dm plan continue abx await for surgery d/w the patient the toe is going to need to go rest as per primary team
[2016-10-28] MEDS: VANCOMYCIN 1,250 MG in DEXTROSE 5%-WATER - 250 ML IVPB SCH (20:22)
[2016-10-29] MEDS ORDERED: PT OWN MED DRAWER 7, Y5N ONE ×3 (02:19→21:26)
[2016-10-29] MEDS: AMPICILLIN - 100 ML IVPB SCH ×4 (02:35→22:03)
[2016-10-29] MEDS: INSULIN SLIDING SCALE (NOVOLOG) 1 VIAL SQ SCH ×6 (02:37→22:04)
[2016-10-29] MEDS: INSULIN DETEMIR 100 UNITS/ML MDV SQ SCH (06:33)
[2016-10-29] MEDS: DOCUSATE SODIUM 100 MG CAPSULE (FP) PO SCH ×3 (06:33→21:37)
[2016-10-29] MEDS: ACETAMINOPHEN 325 MG TABLET (FP) PO PRN (07:10)
[2016-10-29 08:16] LABS: MCH 25.9 pg (25.7-33.7); MCHC 32.3 g/dl (32.0-35.9); MEAN CELL VOLUME 80.2 fl (80-96); MEAN PLT VOLUME 7.3 fl (7.5-11.1); PLATELET COUNT 458 K/MM3 (134-434); RDW 14.7 % (11.9-15.9)
[2016-10-29] MEDS: FERROUS SO4 325 MG TABLET (FP) PO SCH ×2 (08:55→17:54)
[2016-10-29] MEDS: LISINOPRIL 10 MG TABLET (FP) PO SCH (09:06)
[2016-10-29] MEDS: IBUPROFEN 600 MG TABLET (FP) PO PRN ×2 (10:27→17:54)
[2016-10-29] MEDS: VANCOMYCIN 1,250 MG in DEXTROSE 5%-WATER - 250 ML IVPB SCH (10:27)
--- NOTE | 2016-10-29 11:03 | PN ---
Progress Note (short form) - Note Progress Note: Vascular Surgery Pt seen and examined. Will need left great toe amputation Will do sinyd morning. NPO past midnite Spoke to pt at bedside Luis Manuel Ponce DO
[2016-10-29] MEDS: COLLAGENASE CLOSTRIDIUM HIST. 30 GRAMS TUBE TP SCH (12:17)
--- NOTE | 2016-10-29 12:17 | PN ---
Progress Note (short form) - Note Progress Note: Podiatry Brief Note: Patient seen and evaluated at bedside, NAD. Still running high temps. After refusing consent for surgery, patient is now amenable to surgery. L hallux gangrenous changes with maceration. Discussed risks, benefits, alternatives to tx. Dr. Ponce will perform hallux amputation L foot tomorrow. Please reconsult me as needed. Miriam Beckwith DPM
--- NOTE | 2016-10-29 12:18 | PN ---
Physical Exam: SUBJECTIVE: Patient seen and examined Pt is awake, alert and oriented Pt had fever overnight and chills NO n/v Pt received blood transfusion overnight NO chest pain, palpitation, shortness of breath. OBJECTIVE: Vital Signs Period Temp Pulse Resp BP Sys/Lopez Pulse Ox Last 24 Hr 98.2 F-102.4 F 84-111 18-20 103-156/56-84 88 GENERAL: The patient is awake, alert, and fully oriented, in no acute distress. HEAD: Normal with no signs of trauma. LUNGS: Breath sounds equal, clear to auscultation bilaterally, no wheezes, no crackles, no accessory muscle use. HEART: Regular rate and rhythm, S1, S2 with systolic and diastolic murmur, no rub or gallop. ABDOMEN: Soft, nontender, nondistended, normoactive bowel sounds, no guarding, no rebound, no hepatosplenomegaly, no masses. EXTREMITIES: 2+ pulses, warm, well-perfused, no edema in upper ext NEUROLOGICAL: Normal speech, gait not observed. PSYCH: Normal mood, normal affect. SKIN: Warm, dry, normal turgor, no rashes or lesions noted. Left great toe ulcer and osteomyelitis coverage with gauze and kerlix, dry and intact Laboratory Results - last 24 hr 10/28/16 10/28/16 10/28/16 11:35 13:50 17:28 WBC RBC Hgb Hct MCV MCHC RDW Plt Count MPV POC Glucometer 201 204 Blood Type O NEGATIVE Antibody Screen Negative Crossmatch See Detail 10/28/16 10/29/16 10/29/16 22:05 02:37 06:33 WBC RBC Hgb Hct MCV MCHC RDW Plt Count MPV POC Glucometer 233 198 132 Blood Type Antibody Screen Crossmatch 10/29/16 06:58 WBC 28.0 H RBC 2.64 L Hgb 6.8 L* Hct 21.2 L MCV 80.2 MCHC 32.3 RDW 14.7 Plt Count 458 H MPV 7.3 L POC Glucometer Blood Type Antibody Screen Crossmatch Active Medications Generic Name Dose Route Start Last Admin Trade Name Freq PRN Reason Stop Dose Admin Acetaminophen 650 mg 10/27/16 08:21 10/29/16 07:10 Tylenol - PO 650 mg Q4H PRN Administration FOR TEMPERATURE >101/PAIN Clopidogrel Bisulfate 75 mg 10/24/16 10:00 10/28/16 09:34 Plavix - PO 75 mg DAILY S[facility] Administration Collagenase 1 applic 10/23/16 18:30 10/28/16 14:24 Santyl - TP 1 applic DAILY S[facility] Administration Docusate Sodium 100 mg 10/23/16 22:00 10/29/16 06:33 Colace - PO 100 mg TID SANGEETHA Administration Ferrous Sulfate 325 mg 10/26/16 17:30 10/29/16 08:55 Feosol - PO 325 mg BIDWM [facility] Administration Heparin Sodium (Porcine) 5,000 unit 10/23/16 22:00 10/28/16 22:01 Heparin - SQ 5,000 unit TID SANGEETHA Administration Ampicillin Sodium 100 mls @ 200 mls/hr 10/27/16 15:15 10/29/16 08:55 Ampicillin 1 Gram Ivpb (Pre-Docked) IVPB 200 mls/hr Q6H-IV [facility] Administration Sodium Chloride 1,000 mls @ 83 mls/hr 10/28/16 18:00 10/28/16 18:30 Normal Saline - IV 83 mls/hr ASDIR [facility] Administration Vancomycin HCl 1,250 mg/ 250 mls @ 250 mls/hr 10/28/16 19:00 10/29/16 10:27 Dextrose IVPB 250 mls/hr DAILY [facility] Administration Protocol Ibuprofen 600 mg 10/29/16 09:54 10/29/16 10:27 Motrin - PO 600 mg Q6H PRN Administration FEVER Insulin Aspart 1 vial 10/24/16 22:00 10/29/16 06:33 Novolog Vial Sliding Scale - SQ Not Given Q4HPO [facility] Protocol Insulin Detemir 15 units 10/23/16 22:00 10/28/16 22:01 Levemir Vial SQ 15 units HS [facility] Administration Insulin Detemir 30 units 10/26/16 07:00 10/29/16 06:33 Levemir Vial SQ Not Given AM [facility] Insulin Detemir 30 units 10/29/16 12:15 Levemir Vial SQ 10/29/16 12:16 ONCE ONE Lisinopril 10 mg 10/25/16 15:30 10/29/16 09:06 Prinivil PO 10 mg DAILY [facility] Administration Oxycodone HCl 5 mg 10/24/16 07:35 10/28/16 18:34 Roxicodone - PO 5 mg Q4H PRN Administration PAIN CBC, BMP 10/29/16 06:58 10/24/16 07:50 Microbiology 10/24/16 10:56 Foot - Left Plantar Gram Stain - Final 10/24/16 10:56 Foot - Left Plantar Wound Culture - Final Staphylococcus Aureus Enterococcus Faecalis Strep Agalactiae Group B 10/23/16 12:30 Foot - Left Plantar Gram Stain - Final 10/23/16 12:30 Blood - Peripheral Venous Blood Culture - Final NO GROWTH AFTER 5 DAYS INCUBATION 10/23/16 12:30 Blood - Peripheral Venous Blood Culture - Final NO GROWTH AFTER 5 DAYS INCUBATION 10/26/16 18:20 Blood - Peripheral Venous Blood Culture - Preliminary NO GROWTH OBTAINED AFTER 48 HOURS, INCUBATION TO CONTINUE FOR 3 DAYS. 10/23/16 12:30 Foot - Left Plantar Wound Culture - Preliminary Staphylococcus Aureus Strep Agalactiae Group B Enterococcus Faecalis Diphtheroid/Corynebacterium ASSESSMENT/PLAN: 56 year old male with pmh of uncontrolled diabetes and grangrenous left foot s/ p angiopaslty on 08/2016 was admitted for osteomyelitis of left great toe. Sepsis secondary osteomyelitis of left great toe WBC 12, fever 103.8, Xray left foot showed osteomyelitis on admission Received vancomycin and Zosyn in ED ID consulted Dr Cedeno Wound culture is positive for Staph Aureus, strep agalactiae, entercoccus, all sensitive to penicillins. Switched to Ampicillin 1gm q6h yesterday Started on ceftriaxone 2 gm IV daily yesterday Pt is still having fever, since source of infection is still here Roxicodone 5mg po q4h Dr Beckwith consulted, saw patient and strongly recommended amputation but patient refused Dr Ponce recommends amputation patient said he would think about it Pt agrees to do ampution Scurgery is scheduled for tomorrow morning with Dr Ponce NPO after midnight Acute hypoxic respiratory distress likely rt to decreased oxygen carrying capacity from anemia Resiratory statsu improved after blood transfusion O2 nasal cannula 2L prn keep O2 sat above 90% Acute anemia iron deficiency vs anemia of chronic disease vs Sepsis induced hgb 6.4 yesterday, 1 unit PRBC transfused today hbg 6.8 response was not adequate will tranfuse 1 unit prbc today Repeat CBC post transfusion Continue fesol 325mg po BIDWM Uncontrolled Diabetes hgba1c was 11.8 in august, now it is 12.4 blood dlucose more controlled now On Levemir 30 units qAM and Levemir 15 units qhs, Hold Night levemir and am levemir for surgery tomorrow Novolog sliding scale HTN Controlled Lisinopril 10mg PO daily FEN Fluid: none Electrolytes: no abnormalities Nutrition: diabetic diet Disposition: Pending amputation or left great toe and resolution of sepsis Visit type - Emergency Visit Emergency Visit: Yes ED Registration Date: 10/23/16 Care time: The patient presented to the Emergency Department on the above date and was hospitalized for further evaluation of their emergent condition. - New Patient This patient is new to me today: Yes Date on this admission: 10/29/16 - Critical Care Critical Care patient: No - Discharge Referral Referred to [facility] Med P.C.: No
[2016-10-29] MEDS ORDERED: INSULIN DETEMIR 100 UNITS/ML MDV SQ ONE (12:45)
[2016-10-29] MEDS ORDERED: ACETAMINOPHEN 325 MG TABLET (FP) PO PRN (12:49)
[2016-10-29] MEDS: HEPARIN NA (PORCINE) 5,000 UNITS/ML 1ML VIAL SQ SCH ×2 (13:20→21:37)
[2016-10-29] MEDS: SODIUM CHLORIDE 1,000 ML IV SCH ×2 (14:04→19:39)
--- NOTE | 2016-10-29 17:27 | PN ---
Teaching Attending Note Name of Resident: Eulogio Wiley ATTENDING PHYSICIAN STATEMENT I saw and evaluated the patient. I reviewed the resident's note and discussed the case with the resident. I agree with the resident's findings and plan as documented. SUBJECTIVE: Patient has no complaints. OBJECTIVE: Vital Signs Period Temp Pulse Resp BP Sys/Lopez Pulse Ox Last 24 Hr 98.2 F-102.2 F 84-110 17-20 103-154/56-74 88 HEART: S1S2, RRR LUNGS: Clear ABDOMEN: Soft, non-tender, non-distended, normal BS EXTREMITIES: 1+ edema LLE ASSESSMENT AND PLAN: This is a 56-year-old man with a history of type 2 DM, PAD who was admitted for left 1st toe osteomyelitis. 1. Sepsis secondary to osteomyelitis of left 1st toe - Continue Ampicillin, Vancomycin - Plan for amputation tomorrow 2. Acute anemia likely secondary to sepsis - Transfused 1 unit PRBCs yesterday - Transfuse 1 unit PRBCs today 3. Anemia secondary to chronic illness 4. Acute hypoxic respiratory failure - Improved 5. Type 2 DM, uncontrolled - Continue Levemir, Novolog sliding scale 6. PAD, history of LLE angioplasty - Continue Plavix 7. HTN - Continue Lisinopril
[2016-10-29] MEDS ORDERED: INSULIN (NOVOLOG) ASPART 100 UNITS/ML 10ML VIAL ONE ×2 (18:05→21:26)
--- NOTE | 2016-10-29 20:03 | PN ---
Progress Note, Physician History of Present Illness: patient has been afebrile for some time now agred for surgery going for surgery tomorrow - Current Medication List Current Medications: Active Medications Acetaminophen (Tylenol -) 650 mg PO Q4H PRN PRN Reason: FEVER OR PAIN Last Admin: 10/29/16 13:17 Dose: 650 mg Clopidogrel Bisulfate (Plavix -) 75 mg PO DAILY [facility] Last Admin: 10/28/16 09:34 Dose: 75 mg Collagenase (Santyl -) 1 applic TP DAILY [facility] Last Admin: 10/29/16 12:17 Dose: 1 applic Docusate Sodium (Colace -) 100 mg PO TID [facility] Last Admin: 10/29/16 13:19 Dose: 100 mg Ferrous Sulfate (Feosol -) 325 mg PO BIDWM [facility] Last Admin: 10/29/16 17:54 Dose: 325 mg Heparin Sodium (Porcine) (Heparin -) 5,000 unit SQ TID [facility] Last Admin: 10/29/16 13:20 Dose: 5,000 unit Ampicillin Sodium (Ampicillin 1 Gram Ivpb (Pre-Docked)) 100 mls @ 200 mls/hr IVPB Q6H-IV [facility] Last Admin: 10/29/16 14:05 Dose: 200 mls/hr Sodium Chloride (Normal Saline -) 1,000 mls @ 83 mls/hr IV ASDIR [facility] Last Admin: 10/29/16 19:39 Dose: Not Given Vancomycin HCl 1,250 mg/ (Dextrose) 250 mls @ 250 mls/hr IVPB DAILY [facility] PRN Reason: Protocol Last Admin: 10/29/16 10:27 Dose: 250 mls/hr Ibuprofen (Motrin -) 600 mg PO Q6H PRN PRN Reason: FEVER Last Admin: 10/29/16 17:54 Dose: 600 mg Insulin Aspart (Novolog Vial Sliding Scale -) 1 vial SQ Q4HPO [facility] PRN Reason: Protocol Last Admin: 10/29/16 17:54 Dose: Not Given Insulin Detemir (Levemir Vial) 15 units SQ HS [facility] Last Admin: 10/28/16 22:01 Dose: 15 units Insulin Detemir (Levemir Vial) 30 units SQ AM [facility] Last Admin: 10/29/16 06:33 Dose: Not Given Lisinopril (Prinivil) 10 mg PO DAILY [facility] Last Admin: 10/29/16 09:06 Dose: 10 mg Oxycodone HCl (Roxicodone -) 5 mg PO Q4H PRN PRN Reason: PAIN Last Admin: 10/28/16 18:34 Dose: 5 mg - Objective Vital Signs: Vital Signs Temperature 98.8 F 10/29/16 19:25 Pulse Rate 100 H 10/29/16 19:25 Respiratory Rate 20 10/29/16 19:25 Blood Pressure 134/70 10/29/16 19:25 O2 Sat by Pulse Oximetry (%) 98 10/29/16 09:00 Constitutional: Yes: No Distress, Calm Cardiovascular: Yes: Regular Rate and Rhythm Respiratory: Yes: Regular, CTA Bilaterally Gastrointestinal: Yes: Normal Bowel Sounds, Soft Musculoskeletal: Yes: Other Extremities: Yes: Other Integumentary: Yes: Erythema, Other Wound/Incision: Yes: Dressing Dry and Intact Neurological: Yes: Alert, Oriented Psychiatric: Yes: Alert, Oriented Labs: CBC, BMP 10/29/16 06:58 10/24/16 07:50 INR, PTT INR 1.36 (0.82-1.09) H 10/24/16 07:50 Assessment/Plan osteo of the left toe wound infection dm plan continue abx for surgery tomorrow
[2016-10-30] MEDS ORDERED: PT OWN MED DRAWER 7, Y5N ONE ×2 (02:16→08:46)
[2016-10-30] MEDS: AMPICILLIN - 100 ML IVPB SCH ×3 (02:37→15:00)
[2016-10-30] MEDS: INSULIN SLIDING SCALE (NOVOLOG) 1 VIAL SQ SCH ×6 (03:18→23:11)
[2016-10-30] MEDS: SODIUM CHLORIDE 1,000 ML IV SCH ×2 (06:14→19:47)
[2016-10-30] MEDS: DOCUSATE SODIUM 100 MG CAPSULE (FP) PO SCH ×3 (06:18→21:46)
[2016-10-30] MEDS: HEPARIN NA (PORCINE) 5,000 UNITS/ML 1ML VIAL SQ SCH ×3 (06:18→21:45)
[2016-10-30] MEDS ORDERED: INSULIN DETEMIR 100 UNITS/ML MDV SQ ONE (07:00)
[2016-10-30 08:14] LABS: MCH 26.2 pg (25.7-33.7); MCHC 32.2 g/dl (32.0-35.9); MEAN CELL VOLUME 81.6 fl (80-96); MEAN PLT VOLUME 7.2 fl (7.5-11.1); PLATELET COUNT 444 K/MM3 (134-434)
[2016-10-30 08:41] LABS: WHITE BLOOD COUNT 30.8 K/mm3 (4.0-10.0)
[2016-10-30] MEDS: LISINOPRIL 10 MG TABLET (FP) PO SCH (09:02)
[2016-10-30] MEDS: FERROUS SO4 325 MG TABLET (FP) PO SCH ×2 (09:03→19:47)
[2016-10-30] MEDS: CLOPIDOGREL BISULFATE 75 MG TABLET (FP) PO SCH (09:04)
[2016-10-30] MEDS: IBUPROFEN 600 MG TABLET (FP) PO PRN (09:08)
[2016-10-30] MEDS: VANCOMYCIN 1,250 MG in DEXTROSE 5%-WATER - 250 ML IVPB SCH ×2 (10:20→23:12)
[2016-10-30] MEDS: COLLAGENASE CLOSTRIDIUM HIST. 30 GRAMS TUBE TP SCH (11:29)
--- NOTE | 2016-10-30 11:37 | PN ---
Physical Exam: SUBJECTIVE: Patient seen and examined Low grade fever in last 24 hours NO s/s of acute distres this am Pt was supposed to be NPO but decided to eat at 6 am NPO is resume and Surgery is pushed back to early after at 2pm Dr Kris King OBJECTIVE: Vital Signs Period Temp Pulse Resp BP Sys/Lopez Pulse Ox Last 24 Hr 98.6 F-101.0 F 92-100 17-20 116-139/54-77 90 GENERAL: The patient is awake, alert, and fully oriented, in no acute distress. HEAD: Normal with no signs of trauma. LUNGS: Breath sounds equal, clear to auscultation bilaterally, no wheezes, no crackles, no accessory muscle use. HEART: Regular rate and rhythm, S1, S2 with systolic and diastolic murmur, no rub or gallop. ABDOMEN: Soft, nontender, nondistended, normoactive bowel sounds, no guarding, no rebound, no hepatosplenomegaly, no masses. EXTREMITIES: 2+ pulses, warm, well-perfused, no edema in upper ext NEUROLOGICAL: Normal speech, gait not observed. PSYCH: Normal mood, normal affect. SKIN: Warm, dry, normal turgor, no rashes or lesions noted. Left great toe ulcer and osteomyelitis coverage with gauze and kerlix, dry and intact Laboratory Results - last 24 hr 10/28/16 10/29/16 10/29/16 11:35 12:16 17:51 WBC RBC Hgb Hct MCV MCHC RDW Plt Count MPV POC Glucometer 182 145 Blood Type O NEGATIVE Antibody Screen Negative Crossmatch See Detail 10/29/16 10/30/16 10/30/16 21:50 06:15 07:40 WBC 30.8 H* RBC 2.67 L Hgb 7.0 L Hct 21.8 L MCV 81.6 MCHC 32.2 RDW 15.0 Plt Count 444 H MPV 7.2 L POC Glucometer 209 162 Blood Type Antibody Screen Crossmatch Active Medications Generic Name Dose Route Start Last Admin Trade Name Freq PRN Reason Stop Dose Admin Acetaminophen 650 mg 10/29/16 12:49 10/29/16 13:17 Tylenol - PO 650 mg Q4H PRN Administration FEVER OR PAIN Clopidogrel Bisulfate 75 mg 10/24/16 10:00 04/26/17 09:04 Plavix - PO Not Given DAILY [facility] Collagenase 1 applic 10/23/16 18:30 10/30/16 11:29 Santyl - TP Not Given DAILY [facility] Docusate Sodium 100 mg 10/23/16 22:00 10/30/16 06:18 Colace - PO Not Given TID [facility] Ferrous Sulfate 325 mg 10/26/16 17:30 10/30/16 09:03 Feosol - PO Not Given BIDWM [facility] Heparin Sodium (Porcine) 5,000 unit 10/23/16 22:00 10/30/16 06:18 Heparin - SQ Not Given TID [facility] Ampicillin Sodium 100 mls @ 200 mls/hr 10/27/16 15:15 10/30/16 09:04 Ampicillin 1 Gram Ivpb (Pre-Docked) IVPB 200 mls/hr Q6H-IV [facility] Administration Sodium Chloride 1,000 mls @ 83 mls/hr 10/28/16 18:00 10/30/16 06:14 Normal Saline - IV 83 mls/hr ASDIR [facility] Administration Vancomycin HCl 1,250 mg/ 250 mls @ 250 mls/hr 10/28/16 19:00 10/29/16 10:27 Dextrose IVPB 250 mls/hr DAILY [facility] Administration Protocol Ibuprofen 600 mg 10/29/16 09:54 10/30/16 09:08 Motrin - PO 600 mg Q6H PRN Administration FEVER Insulin Aspart 1 vial 10/24/16 22:00 10/30/16 11:29 Novolog Vial Sliding Scale - SQ Not Given Q4HPO [facility] Protocol Insulin Detemir 15 units 10/23/16 22:00 10/28/16 22:01 Levemir Vial SQ 15 units HS [facility] Administration Insulin Detemir 30 units 10/26/16 07:00 10/29/16 06:33 Levemir Vial SQ Not Given AM [facility] Lisinopril 10 mg 10/25/16 15:30 10/30/16 09:02 Prinivil PO 10 mg DAILY [facility] Administration Oxycodone HCl 5 mg 10/24/16 07:35 10/28/16 18:34 Roxicodone - PO 5 mg Q4H PRN Administration PAIN CBC, BMP 10/30/16 07:40 10/24/16 07:50 Microbiology 10/24/16 10:56 Foot - Left Plantar Gram Stain - Final 10/24/16 10:56 Foot - Left Plantar Wound Culture - Final Staphylococcus Aureus Enterococcus Faecalis Strep Agalactiae Group B 10/23/16 12:30 Foot - Left Plantar Gram Stain - Final 10/23/16 12:30 Foot - Left Plantar Wound Culture - Final Staphylococcus Aureus Strep Agalactiae Group B Enterococcus Faecalis Diphtheroid/Corynebacterium 10/23/16 12:30 Blood - Peripheral Venous Blood Culture - Final NO GROWTH AFTER 5 DAYS INCUBATION 10/23/16 12:30 Blood - Peripheral Venous Blood Culture - Final NO GROWTH AFTER 5 DAYS INCUBATION 10/26/16 18:20 Blood - Peripheral Venous Blood Culture - Preliminary NO GROWTH OBTAINED AFTER 72 HOURS, INCUBATION TO CONTINUE FOR 2 DAYS. Laboratory Tests 10/30/16 07:40 MCV 81.6 ASSESSMENT/PLAN: 56 year old male with pmh of uncontrolled diabetes and grangrenous left foot s/ p angiopaslty on 08/2016 was admitted for osteomyelitis of left great toe. Sepsis secondary osteomyelitis of left great toe WBC 12, fever 103.8, Xray left foot showed osteomyelitis on admission Received vancomycin and Zosyn in ED ID consulted Dr Cedeno Wound culture is positive for Staph Aureus, strep agalactiae, entercoccus, all sensitive to penicillins. Switched to Ampicillin 1gm q6h yesterday Started on ceftriaxone 2 gm IV daily yesterday Pt is still having fever, since source of infection is still here Roxicodone 5mg po q4h Dr Beckwith and DR Ponce consulted, saw patient and strongly recommended amputation but patient refused for a few days then later accepted Surgery is scheduled for this afternoon 2pm with Dr Ponce NPO Acute hypoxic respiratory distress likely rt to decreased oxygen carrying capacity from anemia Respiratory status improved after blood transfusion O2 nasal cannula 2L prn keep O2 sat above 90% Acute anemia iron deficiency vs anemia of chronic disease vs Sepsis induced hgb 6.4 yesterday, 1 unit PRBC transfused today hbg 6.8 response was not adequate will tranfuse 1 unit prbc today Hgb 7, Will trasfuse 1 more Unit PRBC Continue fesol 325mg po BIDWM Uncontrolled Diabetes hgba1c was 11.8 in august, now it is 12.4 blood dlucose more controlled now On Levemir 30 units qAM and Levemir 15 units qhs, Hold Night levemir and am levemir for surgery Novolog sliding scale HTN Controlled Lisinopril 10mg PO daily FEN Fluid: none Electrolytes: no abnormalities Nutrition: diabetic diet Disposition: Pending amputation or left great toe and resolution of sepsis Visit type - Emergency Visit Emergency Visit: Yes ED Registration Date: 10/23/16 Care time: The patient presented to the Emergency Department on the above date and was hospitalized for further evaluation of their emergent condition. - New Patient This patient is new to me today: Yes - Critical Care Critical Care patient: No - Discharge Referral Referred to [facility] Med P.C.: No
--- NOTE | 2016-10-30 12:11 | PN ---
Progress Note, Physician History of Present Illness: patient looking septic for surgery today - Current Medication List Current Medications: Active Medications Acetaminophen (Tylenol -) 650 mg PO Q4H PRN PRN Reason: FEVER OR PAIN Last Admin: 10/29/16 13:17 Dose: 650 mg Clopidogrel Bisulfate (Plavix -) 75 mg PO DAILY [facility] Last Admin: 10/30/16 09:04 Dose: Not Given Collagenase (Santyl -) 1 applic TP DAILY [facility] Last Admin: 10/30/16 11:29 Dose: Not Given Docusate Sodium (Colace -) 100 mg PO TID [facility] Last Admin: 10/30/16 06:18 Dose: Not Given Ferrous Sulfate (Feosol -) 325 mg PO BIDWM [facility] Last Admin: 10/30/16 09:03 Dose: Not Given Heparin Sodium (Porcine) (Heparin -) 5,000 unit SQ TID [facility] Last Admin: 10/30/16 06:18 Dose: Not Given Ampicillin Sodium (Ampicillin 1 Gram Ivpb (Pre-Docked)) 100 mls @ 200 mls/hr IVPB Q6H-IV [facility] Last Admin: 10/30/16 09:04 Dose: 200 mls/hr Sodium Chloride (Normal Saline -) 1,000 mls @ 83 mls/hr IV ASDIR [facility] Last Admin: 10/30/16 06:14 Dose: 83 mls/hr Vancomycin HCl 1,250 mg/ (Dextrose) 250 mls @ 250 mls/hr IVPB DAILY [facility] PRN Reason: Protocol Last Admin: 10/29/16 10:27 Dose: 250 mls/hr Ibuprofen (Motrin -) 600 mg PO Q6H PRN PRN Reason: FEVER Last Admin: 10/30/16 09:08 Dose: 600 mg Insulin Aspart (Novolog Vial Sliding Scale -) 1 vial SQ Q4HPO [facility] PRN Reason: Protocol Last Admin: 10/30/16 11:29 Dose: Not Given Insulin Detemir (Levemir Vial) 15 units SQ HS [facility] Last Admin: 10/28/16 22:01 Dose: 15 units Insulin Detemir (Levemir Vial) 30 units SQ AM [facility] Last Admin: 10/29/16 06:33 Dose: Not Given Lisinopril (Prinivil) 10 mg PO DAILY [facility] Last Admin: 10/30/16 09:02 Dose: 10 mg Oxycodone HCl (Roxicodone -) 5 mg PO Q4H PRN PRN Reason: PAIN Last Admin: 10/28/16 18:34 Dose: 5 mg - Objective Vital Signs: Vital Signs Temperature 99.5 F 10/30/16 07:55 Pulse Rate 96 H 10/30/16 07:55 Respiratory Rate 20 10/30/16 07:55 Blood Pressure 129/65 10/30/16 07:55 O2 Sat by Pulse Oximetry (%) 90 L 10/29/16 21:00 Constitutional: Yes: Calm HENT: Yes: Atraumatic Cardiovascular: Yes: Regular Rate and Rhythm Respiratory: Yes: Regular, CTA Bilaterally Gastrointestinal: Yes: Normal Bowel Sounds, Soft Musculoskeletal: Yes: Other Extremities: Yes: Other Wound/Incision: Yes: Dressing Dry and Intact Neurological: Yes: Alert, Oriented Psychiatric: Yes: Alert, Oriented Labs: CBC, BMP 10/30/16 07:40 10/24/16 07:50 INR, PTT INR 1.36 (0.82-1.09) H 10/24/16 07:50 Assessment/Plan osteo of the left toe wound infection dm patients wbc is going up patient needs to go for surgery as early as possible plan continue abx for surgery tomorrow i am going to give zosyn to the patient wbc now very high
[2016-10-30] MEDS ORDERED: PIPERACILLIN/TAZOB 3.375 GM 50 ML IVPB SCH (12:15)
[2016-10-30 13:09] LABS: PLATELET ESTIMATE INCREASED (NORMAL)
[2016-10-30 13:11] LABS: HYPOCHROMIA 1+
[2016-10-30] MEDS ORDERED: MIDAZOLAM HCL 2 MG/2 ML SINGLE DOSE VIAL ONE ×3 (14:48)
[2016-10-30] MEDS ORDERED: PROPOFOL 20 ML ONE ×2 (15:03)
[2016-10-30] MEDS ORDERED: LIDOCAINE HCL 1%, 10 MG/ML (20ML VIAL) ONE (15:04)
[2016-10-30] MEDS ORDERED: SUCCINYLCHOLINE CHLORIDE 200 MG/10 ML VIAL ONE (15:09)
[2016-10-30] MEDS ORDERED: LIDOCAINE HCL 1%, 10 MG/ML (20ML VIAL) IJ ONE (15:12)
[2016-10-30] MEDS ORDERED: BACITRACIN 50,000 UNITS VIAL NR ONE (15:12)
--- NOTE | 2016-10-30 16:03 | PN ---
Progress Note (short form) - Note Progress Note: Vascular Surgery S/P great toe amp , all the way to ray. Copious amounts of pus found in foot. Cx taken. Wound left open Bone taken back until healthy. Tendons infected. Spoke to family at length about pt possibly needing more surgery and further amputation. Continue saline moist dressing changes for next couple of days and will follow foot IV antibiotics as per ID Luis Manuel Ponce DO
--- NOTE | 2016-10-30 16:05 | OP ---
Operative Note - Note: Operative Date: 10/30/16 Pre-Operative Diagnosis: Left great toe gangrene Operation: Left great toe gangrene with partial ray amputaton. Drainage of abscess Findings: Pus found in foot. Cx's taken Wound left open Post-Operative Diagnosis: Same as Pre-op Surgeon: Luis Manuel Ponce Anesthesia: Fractional Estimated Blood Loss (mls): 20 Operative Report Dictated: Yes
[2016-10-30] MEDS ORDERED: morphine CARPU-JECT 4 MG/1 ML DISP.SYRIN IVPUSH PRN (16:06)
[2016-10-30] MEDS ORDERED: IBUPROFEN 600 MG TABLET (FP) PO PRN (16:13)
[2016-10-30] MEDS ORDERED: ONDANSETRON 4 MG/2 ML VIAL IVPUSH PRN (16:52)
[2016-10-30] MEDS ORDERED: LACTATED RINGERS SOLUTION 1,000 ML IV SCH (17:00)
[2016-10-30] MEDS ORDERED: ACETAMINOPHEN 1000 MG/100 ML VIAL (NON FORMULARY) IVPB ONE (17:20)
[2016-10-30] MEDS ORDERED: ACETAMINOPHEN INJECTION 100 ML IVPB ONE (17:22)
--- NOTE | 2016-10-30 17:42 | PN ---
Teaching Attending Note Name of Resident: Eulogio Wiley ATTENDING PHYSICIAN STATEMENT I saw and evaluated the patient. I reviewed the resident's note and discussed the case with the resident. I agree with the resident's findings and plan as documented. SUBJECTIVE: Patient has no complaints. OBJECTIVE: Vital Signs Period Temp Pulse Resp BP Sys/Lopez Pulse Ox Last 24 Hr 98.6 F-100.0 F 88-101 16-20 120-157/54-88 10-100 HEART: S1S2, RRR LUNGS: Clear ABDOMEN: Soft, non-tender, non-distended, normal BS EXTREMITIES: 1+ edema LLE ASSESSMENT AND PLAN: This is a 56-year-old man with a history of type 2 DM, PAD who was admitted for left 1st toe osteomyelitis. 1. Sepsis secondary to osteomyelitis of left 1st toe - Continue Ampicillin, Vancomycin - Zosyn added - s/p left 1st toe amputation today - pus found and wound left open - Follow-up culture 2. Acute anemia likely secondary to sepsis - Transfused 2 units PRBCs 3. Anemia secondary to chronic illness 4. Acute hypoxic respiratory failure - Improved 5. Type 2 DM, uncontrolled - Continue Levemir, Novolog sliding scale 6. PAD, history of LLE angioplasty - Continue Plavix 7. HTN - Continue Lisinopril
[2016-10-30] MEDS ORDERED: AMPICILLIN SODIUM 1 GM VIAL IVPB ONE (18:00)
[2016-10-30] MEDS ORDERED: PIPERACILLIN/TAZOBACTAM 3.375 GM VIAL IVPB ONE (18:23)
[2016-10-30] MEDS: PIPERACILLIN/TAZOB 3.375 GM 50 ML IVPB SCH (18:56)
[2016-10-30] MEDS ORDERED: VANCOMYCIN 1,000 MG VIAL (RESTRICTED TO ID ONLY) IVPB ONE (18:58)
[2016-10-30] MEDS ORDERED: ACETAMINOPHEN 1000 MG/100 ML VIAL (NON FORMULARY) IVPB PRN (19:14)
[2016-10-30] MEDS: AMPICILLIN - 1 GM in SODIUM CHLORIDE 100 ML IVPB SCH (20:55)
[2016-10-30] MEDS ORDERED: AMPICILLIN - 100 ML IVPB SCH (21:00)
[2016-10-30] MEDS: INSULIN DETEMIR 100 UNITS/ML MDV SQ SCH (21:46)
[2016-10-30] MEDS: ACETAMINOPHEN 325 MG TABLET (FP) PO PRN (23:07)
[2016-10-31] MEDS: PIPERACILLIN/TAZOB 3.375 GM 50 ML IVPB SCH ×3 (01:31→17:20)
[2016-10-31] MEDS: AMPICILLIN - 1 GM in SODIUM CHLORIDE 100 ML IVPB SCH ×2 (02:29→10:48)
[2016-10-31] MEDS: INSULIN SLIDING SCALE (NOVOLOG) 1 VIAL SQ SCH ×6 (02:47→22:38)
[2016-10-31] MEDS: SODIUM CHLORIDE 1,000 ML IV SCH ×3 (05:37→18:47)
[2016-10-31] MEDS: DOCUSATE SODIUM 100 MG CAPSULE (FP) PO SCH ×3 (05:38→22:37)
[2016-10-31] MEDS: HEPARIN NA (PORCINE) 5,000 UNITS/ML 1ML VIAL SQ SCH ×3 (05:38→22:37)
[2016-10-31] MEDS: INSULIN DETEMIR 100 UNITS/ML MDV SQ SCH ×2 (06:09→22:37)
[2016-10-31] MEDS: ACETAMINOPHEN 325 MG TABLET (FP) PO PRN ×2 (06:12→13:08)
[2016-10-31 07:46] LABS: MCH 26.8 pg (25.7-33.7); MCHC 32.4 g/dl (32.0-35.9); MEAN CELL VOLUME 82.6 fl (80-96); PLATELET COUNT 505 K/MM3 (134-434); RDW 14.8 % (11.9-15.9)
[2016-10-31 08:15] LABS: ALBUMIN 1.6 g/dl (3.4-5.0); ALK PHOS 422 U/L (45-117); ANION GAP 14 (8-16); BILIRUBIN,TOTAL 1.4 mg/dL (0.2-1.0); CALCIUM 7.9 mg/dL (8.5-10.1); CO2 22 mmol/L (21-32); COCKROFT - GAULT 106.29; GLUCOSE,RANDOM 123 mg/dL (74-106); SGOT/AST 59 U/L (15-37); SGPT/ALT 67 U/L (12-78); TOT PROT 6.1 g/dl (6.4-8.2)
[2016-10-31 08:17] LABS: WHITE BLOOD COUNT 33.1 K/mm3 (4.0-10.0)
--- NOTE | 2016-10-31 08:37 | PN ---
Progress Note (short form) - Note Progress Note: Pot op day#1.S/P Left 1st toe amputation under MAC uneventful.Patient stable.No any anesthesia related problem.Patient DC from the anesthesia care.
[2016-10-31] MEDS: CLOPIDOGREL BISULFATE 75 MG TABLET (FP) PO SCH (09:35)
[2016-10-31] MEDS: LISINOPRIL 10 MG TABLET (FP) PO SCH (09:35)
[2016-10-31] MEDS: FERROUS SO4 325 MG TABLET (FP) PO SCH ×2 (09:35→17:21)
[2016-10-31] MEDS ORDERED: COLLAGENASE CLOSTRIDIUM HIST. 30 GRAMS TUBE TP SCH (10:00)
[2016-10-31] MEDS ORDERED: INSULIN (NOVOLOG) ASPART 100 UNITS/ML 10ML VIAL ONE ×3 (10:53→21:54)
[2016-10-31] MEDS ORDERED: PT OWN MED DRAWER 7, Y5N ONE (10:53)
[2016-10-31 11:37] LABS: FERRITIN 2829.654 ng/ml (16.4-293.9)
[2016-10-31] MEDS: oxyCODONE HCL 5 MG TABLET PO PRN (13:08)
--- NOTE | 2016-10-31 13:32 | PN ---
Progress Note (short form) - Note Progress Note: POD #1 Alert. Doing well. Pain managed well via prn meds AVSS. Afebrile. LLE: dressing taken down. Wound is open secondary to finding pus intra-op. No foul odor. warm. Problem List - Problems (1) Gangrenous toe Assessment/Plan: POD #1 s/p Left great toe gangrene with partial ray amputaton. Drainage of abscess Dressing changed on rounds. Daily dressing changes ordered. Cont medical management Code(s): I96 - GANGRENE, NOT ELSEWHERE CLASSIFIED
--- NOTE | 2016-10-31 14:18 | PN ---
Progress Note, Physician History of Present Illness: patient post op amputation of the toe patient still spiking wbc high - Current Medication List Current Medications: Active Medications Acetaminophen (Tylenol -) 650 mg PO Q4H PRN PRN Reason: FEVER OR PAIN Last Admin: 10/31/16 13:08 Dose: 650 mg Clopidogrel Bisulfate (Plavix -) 75 mg PO DAILY [facility] Last Admin: 10/31/16 09:35 Dose: 75 mg Docusate Sodium (Colace -) 100 mg PO TID [facility] Last Admin: 10/31/16 13:09 Dose: 100 mg Fentanyl (Sublimaze Injection -) 50 mcg IVPUSH [id number] PRN PRN Reason: PAIN Stop: 11/02/16 16:53 Last Admin: 10/30/16 17:05 Dose: 50 mcg Ferrous Sulfate (Feosol -) 325 mg PO BIDWM [facility] Last Admin: 10/31/16 09:35 Dose: 325 mg Heparin Sodium (Porcine) (Heparin -) 5,000 unit SQ TID [facility] Last Admin: 10/31/16 13:09 Dose: 5,000 unit Sodium Chloride (Normal Saline -) 1,000 mls @ 83 mls/hr IV ASDIR [facility] Last Admin: 10/31/16 05:37 Dose: 83 mls/hr Vancomycin HCl 1,250 mg/ (Dextrose) 250 mls @ 166.667 mls/hr IVPB DAILY@2200 SANGEETHA PRN Reason: Protocol Last Admin: 10/30/16 23:12 Dose: 166.667 mls/hr Piperacillin Sod/Tazobactam Sod (Zosyn 3.375gm Ivpb (Pre-Docked)) 50 mls @ 100 mls/hr IVPB Q8H-IV SANGEETHA PRN Reason: Protocol Last Admin: 10/31/16 09:35 Dose: 100 mls/hr Ibuprofen (Motrin -) 600 mg PO Q6H PRN PRN Reason: FEVER Insulin Aspart (Novolog Vial Sliding Scale -) 1 vial SQ Q4HPO [facility] PRN Reason: Protocol Last Admin: 10/31/16 10:48 Dose: 4 units Insulin Detemir (Levemir Vial) 15 units SQ HS [facility] Last Admin: 10/30/16 21:46 Dose: Not Given Insulin Detemir (Levemir Vial) 30 units SQ AM [facility] Last Admin: 10/31/16 06:09 Dose: Not Given Lisinopril (Prinivil) 10 mg PO DAILY SANGEETHA Last Admin: 10/31/16 09:35 Dose: 10 mg Morphine Sulfate (Morphine Injection -) 4 mg IVPUSH Q6H PRN PRN Reason: PAIN Oxycodone HCl (Roxicodone -) 5 mg PO Q4H PRN PRN Reason: PAIN Last Admin: 10/31/16 13:08 Dose: 5 mg - Objective Vital Signs: Vital Signs Temperature 100.2 F H 10/31/16 14:04 Pulse Rate 108 H 10/31/16 14:04 Respiratory Rate 18 10/31/16 14:04 Blood Pressure 161/88 10/31/16 14:04 O2 Sat by Pulse Oximetry (%) 94 L 10/30/16 21:00 Constitutional: Yes: No Distress, Calm Cardiovascular: Yes: Regular Rate and Rhythm Respiratory: Yes: Regular, CTA Bilaterally Gastrointestinal: Yes: Normal Bowel Sounds, Soft Musculoskeletal: Yes: Other Extremities: Yes: Other Wound/Incision: Yes: Dressing Dry and Intact Neurological: Yes: Alert Psychiatric: Yes: Alert Labs: CBC, BMP 10/31/16 06:40 10/31/16 06:40 INR, PTT INR 1.36 (0.82-1.09) H 10/24/16 07:50 Assessment/Plan osteo of the left toe wound infection dm patients wbc is going up patient needs to go for surgery as early as possible plan post op from amputation close watch on the patient still in sepsis will watch wbc and fevers
--- NOTE | 2016-10-31 14:32 | PN ---
Physical Exam: SUBJECTIVE: Patient seen and examined Pt said he is feeling well Denies pain at this time no chest pain fever was yesterday evening denies fatigue, dizziness. OBJECTIVE: Vital Signs Period Temp Pulse Resp BP Sys/Lopez Pulse Ox Last 24 Hr 98.0 F-101.4 F 87-108 16-22 121-161/58-89 10-100 GENERAL: The patient is awake, alert, and fully oriented, in no acute distress. HEAD: Normal with no signs of trauma. LUNGS: Breath sounds equal, clear to auscultation bilaterally, no wheezes, no crackles, no accessory muscle use. HEART: Regular rate and rhythm, S1, S2 with systolic and diastolic murmur, no rub or gallop. ABDOMEN: Soft, nontender, nondistended, normoactive bowel sounds, no guarding, no rebound, no hepatosplenomegaly, no masses. EXTREMITIES: 2+ pulses, warm, well-perfused, no edema in upper ext NEUROLOGICAL: Normal speech, gait not observed. PSYCH: Normal mood, normal affect. SKIN: Warm, dry, normal turgor, no rashes or lesions noted. s/p left great with first ray amputation. Left foot covered with gauze dressing and Kerlix. serosanguinous discharge seen on dressing Laboratory Results - last 24 hr 10/30/16 10/30/16 10/31/16 19:45 23:11 02:34 WBC RBC Hgb Hct MCV MCHC RDW Plt Count MPV Sodium Potassium Chloride Carbon Dioxide Anion Gap BUN Creatinine Creat Clearance w eGFR POC Glucometer 94 102 136 Random Glucose Calcium Ferritin Total Bilirubin AST ALT Alkaline Phosphatase Total Protein Albumin 10/31/16 10/31/16 10/31/16 05:36 06:40 06:40 WBC 33.1 H* RBC 2.74 L Hgb 7.4 L Hct 22.7 L MCV 82.6 MCHC 32.4 RDW 14.8 Plt Count 505 H MPV 7.0 L Sodium 141 Potassium 3.8 Chloride 105 Carbon Dioxide 22 Anion Gap 14 BUN 39 H D Creatinine 1.0 Creat Clearance w eGFR > 60 POC Glucometer 137 Random Glucose 123 H D Calcium 7.9 L Ferritin 2829.654 H Total Bilirubin 1.4 H D AST 59 H D ALT 67 D Alkaline Phosphatase 422 H D Total Protein 6.1 L Albumin 1.6 L 10/31/16 10:47 WBC RBC Hgb Hct MCV MCHC RDW Plt Count MPV Sodium Potassium Chloride Carbon Dioxide Anion Gap BUN Creatinine Creat Clearance w eGFR POC Glucometer 206 Random Glucose Calcium Ferritin Total Bilirubin AST ALT Alkaline Phosphatase Total Protein Albumin Active Medications Generic Name Dose Route Start Last Admin Trade Name Freq PRN Reason Stop Dose Admin Acetaminophen 650 mg 10/30/16 16:13 10/31/16 13:08 Tylenol - PO 650 mg Q4H PRN Administration FEVER OR PAIN Clopidogrel Bisulfate 75 mg 10/31/16 10:00 10/31/16 09:35 Plavix - PO 75 mg DAILY SANGEETHA Administration Docusate Sodium 100 mg 10/30/16 22:00 10/31/16 13:09 Colace - PO 100 mg TID SANGEETHA Administration Fentanyl 50 mcg 10/30/16 16:52 10/30/16 17:05 Sublimaze Injection - IVPUSH 11/02/16 16:53 50 mcg [id number] PRN Administration PAIN Ferrous Sulfate 325 mg 10/30/16 17:30 10/31/16 09:35 Feosol - PO 325 mg BIDWM SANGEETHA Administration Heparin Sodium (Porcine) 5,000 unit 10/30/16 22:00 10/31/16 13:09 Heparin - SQ 5,000 unit TID SANGEETHA Administration Sodium Chloride 1,000 mls @ 83 mls/hr 10/30/16 16:13 10/31/16 05:37 Normal Saline - IV 83 mls/hr ASDIR SANGEETHA Administration Vancomycin HCl 1,250 mg/ 250 mls @ 166.667 mls/hr 10/30/16 22:00 10/30/16 23:12 Dextrose IVPB 166.667 mls/hr DAILY@2200 SANGEETHA Administration Protocol Piperacillin Sod/Tazobactam Sod 50 mls @ 100 mls/hr 10/30/16 18:00 10/31/16 09: 35 Zosyn 3.375gm Ivpb (Pre-Docked) IVPB 100 mls/hr Q8H-IV SANGEETHA Administration Protocol Ibuprofen 600 mg 10/30/16 16:13 Motrin - PO Q6H PRN FEVER Insulin Aspart 1 vial 10/30/16 18:00 10/31/16 10:48 Novolog Vial Sliding Scale - SQ 4 units Q4HPO SANGEETHA Administration Protocol Insulin Detemir 15 units 10/30/16 22:00 10/30/16 21:46 Levemir Vial SQ Not Given HS [facility] Insulin Detemir 30 units 10/31/16 07:00 10/31/16 06:09 Levemir Vial SQ Not Given AM [facility] Lisinopril 10 mg 10/31/16 10:00 10/31/16 09:35 Prinivil PO 10 mg DAILY SANGEETHA Administration Morphine Sulfate 4 mg 10/30/16 16:06 Morphine Injection - IVPUSH Q6H PRN PAIN Oxycodone HCl 5 mg 10/30/16 16:13 10/31/16 13:08 Roxicodone - PO 5 mg Q4H PRN Administration PAIN CBC, BMP 10/31/16 06:40 10/31/16 06:40 Laboratory Tests 10/31/16 06:40 Ferritin 2829.654 H Total Bilirubin 1.4 H D Alkaline Phosphatase 422 H D ASSESSMENT/PLAN: 56 year old male with pmh of uncontrolled diabetes and gangrenous left foot s/p angioplasty on 08/2016 was admitted for Sepsis from osteomyelitis of left great toe, day 1 post op S/P left great with first ray amputation day 1 Pt seen by surgery today Dressing ordered provided Pain medication PRN Continue Zosyn and Vancomycin per ID F/u left great toe culture Acute anemia iron deficiency vs anemia of chronic disease vs Sepsis induced hgb 7.4 iron studies Continue fesol 325mg po BIDWM Transaminitis with elevated ALP Trend Liver enzymes US right upper quadrant Uncontrolled Diabetes hgba1c was 11.8 in august, now it is 12.4 blood Glucose more controlled now On Levemir 30 units qAM and Levemir 15 units qhs, Novolog sliding scale HTN Controlled Lisinopril 10mg PO daily FEN Fluid: none Electrolytes: no abnormalities Nutrition: diabetic diet Disposition: Pending resolution of sepsis Visit type - Emergency Visit Emergency Visit: Yes ED Registration Date: 10/23/16 Care time: The patient presented to the Emergency Department on the above date and was hospitalized for further evaluation of their emergent condition. - New Patient This patient is new to me today: Yes - Critical Care Critical Care patient: No - Discharge Referral Referred to [facility] Med P.C.: No
--- NOTE | 2016-10-31 16:03 | PN ---
Teaching Attending Note Name of Resident: Eulogio Wiley ATTENDING PHYSICIAN STATEMENT I saw and evaluated the patient. I reviewed the resident's note and discussed the case with the resident. I agree with the resident's findings and plan as documented. SUBJECTIVE: Patient has no complaints. OBJECTIVE: Vital Signs Period Temp Pulse Resp BP Sys/Lopez Pulse Ox Last 24 Hr 98.0 F-101.4 F 87-108 16-22 121-161/58-89 94-100 HEART: S1S2, tachycardic LUNGS: Clear ABDOMEN: Soft, non-tender, non-distended, normal BS EXTREMITIES: 1+ edema LLE, left foot wrapped ASSESSMENT AND PLAN: This is a 56-year-old man with a history of type 2 DM, PAD who was admitted for left 1st toe osteomyelitis. 1. Sepsis secondary to osteomyelitis of left 1st toe - WBC continues to increase and still febrile this morning - Continue Zosyn, Vancomycin - Ampicillin discontinued - s/p left 1st toe amputation 10/30 - pus found and wound left open - Follow-up culture 2. Acute anemia likely secondary to sepsis - Transfused 2 units PRBCs 3. Anemia secondary to chronic illness 4. Acute hypoxic respiratory failure - Improved 5. Type 2 DM, uncontrolled - Continue Levemir, Novolog sliding scale 6. PAD, history of LLE angioplasty - Continue Plavix 7. HTN - Continue Lisinopril
[2016-10-31] MEDS: VANCOMYCIN 1,250 MG in DEXTROSE 5%-WATER - 250 ML IVPB SCH (22:39)
[2016-11-01] MEDS: PIPERACILLIN/TAZOB 3.375 GM 50 ML IVPB SCH ×3 (03:08→17:38)
[2016-11-01] MEDS: INSULIN SLIDING SCALE (NOVOLOG) 1 VIAL SQ SCH ×5 (03:17→21:52)
[2016-11-01 06:06] LABS: SERUM IRON 14 ug/dL (38-169); TOTAL IRON BINDING CAPACITY 132 ug/dL (250-450); UIBC 118 ug/dL (111-343)
[2016-11-01] MEDS: DOCUSATE SODIUM 100 MG CAPSULE (FP) PO SCH ×3 (06:34→21:42)
[2016-11-01] MEDS: HEPARIN NA (PORCINE) 5,000 UNITS/ML 1ML VIAL SQ SCH ×3 (06:35→21:42)
[2016-11-01] MEDS: INSULIN DETEMIR 100 UNITS/ML MDV SQ SCH ×2 (06:38→21:53)
[2016-11-01] MEDS: FERROUS SO4 325 MG TABLET (FP) PO SCH ×2 (09:37→17:38)
[2016-11-01] MEDS: CLOPIDOGREL BISULFATE 75 MG TABLET (FP) PO SCH (09:37)
[2016-11-01] MEDS: LISINOPRIL 10 MG TABLET (FP) PO SCH (09:37)
--- NOTE | 2016-11-01 11:28 | PN ---
Physical Exam: SUBJECTIVE: Patient seen and examined Pt is awake, alert and oriented to time, place and person No s/s of acute distress no fever, no chills, no shortness of breath no fatigue No dizziness or confusion No abdominal pain, no n/v OBJECTIVE: Vital Signs Period Temp Pulse Resp BP Sys/Lopez Pulse Ox Last 24 Hr 98.8 F-100.2 F 96-108 18-18 130-161/68-88 95 GENERAL: The patient is awake, alert, and fully oriented, in no acute distress. HEAD: Normal with no signs of trauma. LUNGS: bibasilar crakles on auscultation , no accessory muscle use. HEART: Regular rate and rhythm, S1, S2 with systolic and diastolic murmur, no rub or gallop. ABDOMEN: Soft, nontender, nondistended, normoactive bowel sounds, no guarding, no rebound, no hepatosplenomegaly, no masses. EXTREMITIES: 2+ pulses, warm, well-perfused, no edema in upper ext NEUROLOGICAL: Normal speech, gait not observed. PSYCH: Normal mood, normal affect. SKIN: Warm, dry, normal turgor, no rashes or lesions noted. s/p left great with first ray amputation. Left foot surgical wound 8cm x 6cm, with yellow, pink base , serous fluid draining, no pus could be expressed Laboratory Results - last 24 hr 10/28/16 10/31/16 10/31/16 11:35 06:40 10:00 POC Glucometer Iron TIBC Iron Saturation Transferrin 126 L Ferritin 2829.654 H Blood Type O NEGATIVE Antibody Screen Negative Crossmatch See Detail 10/31/16 10/31/16 10/31/16 14:57 15:00 17:21 POC Glucometer 286 264 Iron 14 L TIBC 132 L Iron Saturation 11 L Transferrin Ferritin Blood Type Antibody Screen Crossmatch 10/31/16 11/01/16 11/01/16 22:36 03:14 06:34 POC Glucometer 267 212 131 Iron TIBC Iron Saturation Transferrin Ferritin Blood Type Antibody Screen Crossmatch Active Medications Generic Name Dose Route Start Last Admin Trade Name Freq PRN Reason Stop Dose Admin Acetaminophen 650 mg 10/30/16 16:13 10/31/16 13:08 Tylenol - PO 650 mg Q4H PRN Administration FEVER OR PAIN Clopidogrel Bisulfate 75 mg 10/31/16 10:00 11/01/16 09:37 Plavix - PO 75 mg DAILY SANGEETHA Administration Docusate Sodium 100 mg 10/30/16 22:00 11/01/16 06:34 Colace - PO 100 mg TID SANGEETHA Administration Fentanyl 50 mcg 10/30/16 16:52 10/30/16 17:05 Sublimaze Injection - IVPUSH 11/02/16 16:53 50 mcg [id number] PRN Administration PAIN Ferrous Sulfate 325 mg 10/30/16 17:30 11/01/16 09:37 Feosol - PO 325 mg BIDWM SANGEETHA Administration Heparin Sodium (Porcine) 5,000 unit 10/30/16 22:00 11/01/16 06:35 Heparin - SQ 5,000 unit TID [facility] Administration Sodium Chloride 1,000 mls @ 83 mls/hr 10/30/16 16:13 10/31/16 18:47 Normal Saline - IV 83 mls/hr ASDIR SANGEETHA Administration Vancomycin HCl 1,250 mg/ 250 mls @ 166.667 mls/hr 10/30/16 22:00 10/31/16 22:39 Dextrose IVPB 166.667 mls/hr DAILY@2200 SANGEETHA Administration Protocol Piperacillin Sod/Tazobactam Sod 50 mls @ 100 mls/hr 10/30/16 18:00 11/01/16 09: 36 Zosyn 3.375gm Ivpb (Pre-Docked) IVPB 100 mls/hr Q8H-IV SANGEETHA Administration Protocol Ibuprofen 600 mg 10/30/16 16:13 Motrin - PO Q6H PRN FEVER Insulin Aspart 1 vial 11/01/16 11:00 Novolog Vial Sliding Scale - SQ ACHS [facility] Protocol Insulin Detemir 15 units 10/30/16 22:00 10/31/16 22:37 Levemir Vial SQ 15 units HS SANGEETHA Administration Insulin Detemir 30 units 10/31/16 07:00 11/01/16 06:38 Levemir Vial SQ 30 units AM SANGEETHA Administration Lisinopril 10 mg 10/31/16 10:00 11/01/16 09:37 Prinivil PO 10 mg DAILY SANGEETHA Administration Morphine Sulfate 4 mg 10/30/16 16:06 Morphine Injection - IVPUSH Q6H PRN PAIN Oxycodone HCl 5 mg 10/30/16 16:13 10/31/16 13:08 Roxicodone - PO 5 mg Q4H PRN Administration PAIN CBC, BMP 10/31/16 06:40 10/31/16 06:40 Microbiology 10/30/16 15:14 Toe - Left Hallux Gram Stain - Final 10/26/16 18:20 Blood - Peripheral Venous Blood Culture - Final NO GROWTH AFTER 5 DAYS INCUBATION 10/24/16 10:56 Foot - Left Plantar Gram Stain - Final 10/24/16 10:56 Foot - Left Plantar Wound Culture - Final Staphylococcus Aureus Enterococcus Faecalis Strep Agalactiae Group B 10/23/16 12:30 Foot - Left Plantar Gram Stain - Final 10/23/16 12:30 Foot - Left Plantar Wound Culture - Final Staphylococcus Aureus Strep Agalactiae Group B Enterococcus Faecalis Diphtheroid/Corynebacterium 10/23/16 12:30 Blood - Peripheral Venous Blood Culture - Final NO GROWTH AFTER 5 DAYS INCUBATION 10/23/16 12:30 Blood - Peripheral Venous Blood Culture - Final NO GROWTH AFTER 5 DAYS INCUBATION Laboratory Tests 10/31/16 10/31/16 10/31/16 06:40 10:00 15:00 Calcium 7.9 L Iron 14 L TIBC 132 L Iron Saturation 11 L Transferrin 126 L Ferritin 2829.654 H Total Bilirubin 1.4 H D AST 59 H D Alkaline Phosphatase 422 H D Albumin 1.6 L ASSESSMENT/PLAN: 56 year old male with pmh of uncontrolled diabetes and gangrenous left foot s/p angioplasty on 08/2016 was admitted for Sepsis from osteomyelitis of left great toe, day 2 post op S/P left great with first ray amputation day 2 no fever overnight Completed wet to dry dressing, no pus, serous fluid Pain medication PRN Continue Zosyn and Vancomycin per ID day 3 F/u left great toe culture Acute anemia iron deficiency vs anemia of chronic disease vs Sepsis induced hgb 7.4 Increase fesol 325mg po TIDWM AM labs pending Transaminitis with elevated ALP US right upper quadrant showed no dilated CBD, No cholelithiasis transaminitis Likely due to sepsis Will continue to Trend Liver enzymes Uncontrolled Diabetes hgba1c was 11.8 in august, now it is 12.4 blood Glucose more controlled now On Levemir 30 units qAM and Levemir 15 units qhs, Novolog sliding scale ACHS HTN Controlled Lisinopril 10mg PO daily FEN Fluid: none Electrolytes: no abnormalities Nutrition: diabetic diet Disposition: Pending resolution of sepsis Visit type - Emergency Visit Emergency Visit: Yes ED Registration Date: 10/23/16 Care time: The patient presented to the Emergency Department on the above date and was hospitalized for further evaluation of their emergent condition. - New Patient This patient is new to me today: Yes - Critical Care Critical Care patient: No - Discharge Referral Referred to [facility] Med P.C.: No
[2016-11-01 11:37] LABS: MCH 26.3 pg (25.7-33.7); MCHC 31.7 g/dl (32.0-35.9); MEAN CELL VOLUME 83.1 fl (80-96); PLATELET COUNT 587 K/MM3 (134-434); RDW 15.4 % (11.9-15.9); WHITE BLOOD COUNT 24.8 K/mm3 (4.0-10.0)
[2016-11-01 12:04] LABS: ALBUMIN 1.6 g/dl (3.4-5.0); BILIRUBIN,DIRECT 0.4 mg/dL (0.0-0.2); TOT PROT 6.5 g/dl (6.4-8.2)
[2016-11-01 12:07] LABS: BILIRUBIN,TOTAL 0.6 mg/dL (0.2-1.0)
[2016-11-01] MEDS: SODIUM CHLORIDE 1,000 ML IV SCH ×2 (12:45→17:08)
--- NOTE | 2016-11-01 12:50 | PATH ---
Surgical Pathology Report Patient Name: FILIPPO RICHARD [facility]. Rec. #: [id number] /Age/Gender: 1960 (Age: 56) / M Account: [id number] Location: [address] [place] [address]/[facility] Taken: 10/30/2016 Received: 10/31/2016 Reported: 11/01/2016 Physicians: Luis Manuel Norton M.D. Specimen(s) Received LEFT GREAT TOE Clinical History Gangrene, left great toe Final Diagnosis LEFT GREAT TOE, AMPUTATION: SKIN, SOFT TISSUE WITH GANGRENOUS NECROSIS AND ACUTE NECROTIZING INFLAMMATION; UNDERLYING BONE WITH GANGRENOUS NECROSIS. NECROSIS EXTENDS TO THE SKIN AND SOFT TISSUE MARGIN. NECROSIS FOCALLY EXTENDS TO THE BONE MARGIN. SEPARATE FRAGMENTS OF SOFT TISSUE WITH ACUTE NECROTIZING INFLAMMATION AND GANGRENOUS NECROSIS. SEPARATE FRAGMENTS OF BONE APPEAR VIABLE. Electronically Signed Benson Paulson M.D. Gross Description Received in formalin labeled "left great toe" is a 10.3 x 4.5 x 4.2 cm product of a toe amputation. The entire epidermal surface displays a black-sanches, gangrenous lesion which appears to involve the underlying bone as well as skin and soft tissue margin. Separately received within the same container is a 5.5 x 4.7 x 0.7 cm aggregate of multiple arevalo-beckman soft tissue and bone fragments. Imaging Engineer sections are submitted in 4 cassettes follows: 1-lesion with underlying bone, following decalcification; 2-skin and soft tissue margin; 3-bone margin, following decalcification; 4-separately received soft tissue and bone fragments, following decalcification. 10/31/2016 [facility]10/31/2016
--- NOTE | 2016-11-01 15:06 | PN ---
Progress Note, Physician History of Present Illness: patient stable doing well remaining afebrile - Current Medication List Current Medications: Active Medications Acetaminophen (Tylenol -) 650 mg PO Q4H PRN PRN Reason: FEVER OR PAIN Last Admin: 10/31/16 13:08 Dose: 650 mg Clopidogrel Bisulfate (Plavix -) 75 mg PO DAILY COUNTS INCLUDE 234 BEDS AT THE [facility] Last Admin: 11/01/16 09:37 Dose: 75 mg Docusate Sodium (Colace -) 100 mg PO TID COUNTS INCLUDE 234 BEDS AT THE [facility] Last Admin: 11/01/16 13:15 Dose: 100 mg Fentanyl (Sublimaze Injection -) 50 mcg IVPUSH [id number] PRN PRN Reason: PAIN Stop: 11/02/16 16:53 Last Admin: 10/30/16 17:05 Dose: 50 mcg Ferrous Sulfate (Feosol -) 325 mg PO BIDWM COUNTS INCLUDE 234 BEDS AT THE [facility] Last Admin: 11/01/16 09:37 Dose: 325 mg Heparin Sodium (Porcine) (Heparin -) 5,000 unit SQ TID COUNTS INCLUDE 234 BEDS AT THE [facility] Last Admin: 11/01/16 13:15 Dose: 5,000 unit Sodium Chloride (Normal Saline -) 1,000 mls @ 83 mls/hr IV ASDIR COUNTS INCLUDE 234 BEDS AT THE [facility] Last Admin: 11/01/16 12:45 Dose: 83 mls/hr Vancomycin HCl 1,250 mg/ (Dextrose) 250 mls @ 166.667 mls/hr IVPB DAILY@2200 SANGEETHA PRN Reason: Protocol Last Admin: 10/31/16 22:39 Dose: 166.667 mls/hr Piperacillin Sod/Tazobactam Sod (Zosyn 3.375gm Ivpb (Pre-Docked)) 50 mls @ 100 mls/hr IVPB Q8H-IV SANGEETHA PRN Reason: Protocol Last Admin: 11/01/16 09:36 Dose: 100 mls/hr Ibuprofen (Motrin -) 600 mg PO Q6H PRN PRN Reason: FEVER Insulin Aspart (Novolog Vial Sliding Scale -) 1 vial SQ ACHS COUNTS INCLUDE 234 BEDS AT THE [facility] PRN Reason: Protocol Last Admin: 11/01/16 11:51 Dose: Not Given Insulin Detemir (Levemir Vial) 15 units SQ HS COUNTS INCLUDE 234 BEDS AT THE [facility] Last Admin: 10/31/16 22:37 Dose: 15 units Insulin Detemir (Levemir Vial) 30 units SQ AM COUNTS INCLUDE 234 BEDS AT THE [facility] Last Admin: 11/01/16 06:38 Dose: 30 units Lisinopril (Prinivil) 10 mg PO DAILY SANGEETHA Last Admin: 11/01/16 09:37 Dose: 10 mg Morphine Sulfate (Morphine Injection -) 4 mg IVPUSH Q6H PRN PRN Reason: PAIN Oxycodone HCl (Roxicodone -) 5 mg PO Q4H PRN PRN Reason: PAIN Last Admin: 10/31/16 13:08 Dose: 5 mg - Objective Vital Signs: Vital Signs Temperature 100.0 F H 11/01/16 09:00 Pulse Rate 98 H 11/01/16 09:00 Respiratory Rate 18 11/01/16 09:00 Blood Pressure 147/80 11/01/16 09:00 O2 Sat by Pulse Oximetry (%) 93 L 11/01/16 09:00 Constitutional: Yes: No Distress, Calm Cardiovascular: Yes: Regular Rate and Rhythm Respiratory: Yes: Regular, CTA Bilaterally Gastrointestinal: Yes: Normal Bowel Sounds, Soft Musculoskeletal: Yes: Other Extremities: Yes: Other Wound/Incision: Yes: Dressing Dry and Intact Neurological: Yes: Alert, Oriented Psychiatric: Yes: Alert, Oriented Labs: CBC, BMP 11/01/16 11:28 10/31/16 06:40 INR, PTT INR 1.36 (0.82-1.09) H 10/24/16 07:50 Assessment/Plan osteo of the left toe wound infection dm wbc trending down plan patient starting to improve afebrile wbc trending down rest continue current mgmt
--- NOTE | 2016-11-01 16:06 | PN ---
Teaching Attending Note Name of Resident: Eulogio Wiley ATTENDING PHYSICIAN STATEMENT I saw and evaluated the patient. I reviewed the resident's note and discussed the case with the resident. I agree with the resident's findings and plan as documented. SUBJECTIVE: Patient has no complaints. OBJECTIVE: Vital Signs Period Temp Pulse Resp BP Sys/Lopez Pulse Ox Last 24 Hr 98.8 F-100.0 F 96-103 18-18 130-147/68-82 93-95 HEART: S1S2, RRR LUNGS: Clear ABDOMEN: Soft, non-tender, non-distended, normal BS EXTREMITIES: 1+ edema LLE, s/p left 1st toe amputation, wound open, draining serous fluid ASSESSMENT AND PLAN: This is a 56-year-old man with a history of type 2 DM, PAD who was admitted for left 1st toe osteomyelitis. 1. Sepsis secondary to osteomyelitis of left 1st toe - WBC and temp improving - Continue Zosyn, Vancomycin - s/p left 1st toe amputation 10/30 - Continue wound care 2. Acute anemia likely secondary to sepsis - Transfused 2 units PRBCs 3. Anemia secondary to chronic illness 4. Acute hypoxic respiratory failure - Improved 5. Type 2 DM, uncontrolled - Continue Levemir, Novolog sliding scale 6. PAD, history of LLE angioplasty - Continue Plavix 7. HTN - Continue Lisinopril 8. Hepatic transaminitis - Likely secondary to sepsis - US shows slightly contracted and thick-walled gallbladder with no stones or ductal dilatation
[2016-11-01] MEDS: oxyCODONE HCL 5 MG TABLET PO PRN (19:28)
[2016-11-01] MEDS ORDERED: INSULIN (NOVOLOG) ASPART 100 UNITS/ML 10ML VIAL ONE (21:11)
[2016-11-01] MEDS: ACETAMINOPHEN 325 MG TABLET (FP) PO PRN (21:42)
[2016-11-01] MEDS: VANCOMYCIN 1,250 MG in DEXTROSE 5%-WATER - 250 ML IVPB SCH (21:42)
[2016-11-02] MEDS: SODIUM CHLORIDE 1,000 ML IV SCH ×2 (01:34→16:26)
[2016-11-02] MEDS: PIPERACILLIN/TAZOB 3.375 GM 50 ML IVPB SCH ×3 (01:35→17:19)
[2016-11-02] MEDS: INSULIN SLIDING SCALE (NOVOLOG) 1 VIAL SQ SCH ×3 (06:00→17:27)
[2016-11-02] MEDS: DOCUSATE SODIUM 100 MG CAPSULE (FP) PO SCH ×2 (06:23→13:51)
[2016-11-02] MEDS: HEPARIN NA (PORCINE) 5,000 UNITS/ML 1ML VIAL SQ SCH ×3 (06:23→23:59)
[2016-11-02] MEDS: INSULIN DETEMIR 100 UNITS/ML MDV SQ SCH ×2 (06:23→23:59)
[2016-11-02 08:39] LABS: MCH 26.8 pg (25.7-33.7); MCHC 32.1 g/dl (32.0-35.9); MEAN CELL VOLUME 83.5 fl (80-96); MEAN PLT VOLUME 6.7 fl (7.5-11.1); PLATELET COUNT 631 K/MM3 (134-434); RDW 15.7 % (11.9-15.9); WHITE BLOOD COUNT 21.1 K/mm3 (4.0-10.0)
[2016-11-02] MEDS: FERROUS SO4 325 MG TABLET (FP) PO SCH ×2 (08:40→17:20)
[2016-11-02 09:02] LABS: ALBUMIN 1.7 g/dl (3.4-5.0)
[2016-11-02] MEDS: CLOPIDOGREL BISULFATE 75 MG TABLET (FP) PO SCH (09:02)
[2016-11-02] MEDS: LISINOPRIL 10 MG TABLET (FP) PO SCH (09:02)
[2016-11-02 09:07] LABS: BILIRUBIN,DIRECT 0.3 mg/dL (0.0-0.2); BILIRUBIN,TOTAL 0.5 mg/dL (0.2-1.0); TOT PROT 7.2 g/dl (6.4-8.2)
--- NOTE | 2016-11-02 09:12 | PN ---
Physical Exam: SUBJECTIVE: Patient seen and examined. He has a non-productive cough. Temp 102 this morning. OBJECTIVE: Vital Signs Period Temp Pulse Resp BP Sys/Lopez Pulse Ox Last 24 Hr 98.4 F-99.5 F 94-102 18-20 135-158/78-94 94 GENERAL: The patient is awake, alert, and fully oriented, in no acute distress. LUNGS: Breath sounds equal, (+) rhonchi which clear with cough. HEART: Tachycardic, S1, S2 without murmur, rub or gallop. ABDOMEN: Soft, nontender, nondistended, normoactive bowel sounds, no guarding, no rebound, no hepatosplenomegaly, no masses. EXTREMITIES: Left foot wrapped. 1+ edema LLE. Laboratory Results - last 24 hr 10/28/16 11/01/16 11/01/16 11:35 11:28 11:28 WBC 24.8 H RBC 2.61 L Hgb 6.9 L* Hct 21.7 L MCV 83.1 MCHC 31.7 L RDW 15.4 Plt Count 587 H MPV 7.0 L POC Glucometer Total Bilirubin 0.6 D Direct Bilirubin 0.4 H AST 34 D ALT 58 Alkaline Phosphatase 411 H Total Protein 6.5 Albumin 1.6 L Blood Type O NEGATIVE Antibody Screen Negative Crossmatch See Detail 11/01/16 11/01/16 11/01/16 11:48 17:04 21:44 WBC RBC Hgb Hct MCV MCHC RDW Plt Count MPV POC Glucometer 99 170 196 Total Bilirubin Direct Bilirubin AST ALT Alkaline Phosphatase Total Protein Albumin Blood Type Antibody Screen Crossmatch 11/02/16 11/02/16 05:52 06:48 WBC 21.1 H RBC 2.84 L Hgb 7.6 L D Hct 23.7 L MCV 83.5 MCHC 32.1 RDW 15.7 Plt Count 631 H MPV 6.7 L POC Glucometer 108 Total Bilirubin Direct Bilirubin AST ALT Alkaline Phosphatase Total Protein Albumin Blood Type Antibody Screen Crossmatch Active Medications Generic Name Dose Route Start Last Admin Trade Name Freq PRN Reason Stop Dose Admin Acetaminophen 650 mg 10/30/16 16:13 11/01/16 21:42 Tylenol - PO 650 mg Q4H PRN Administration FEVER OR PAIN Clopidogrel Bisulfate 75 mg 10/31/16 10:00 11/02/16 09:02 Plavix - PO 75 mg DAILY [facility] Administration Docusate Sodium 100 mg 10/30/16 22:00 11/02/16 06:23 Colace - PO 100 mg TID [facility] Administration Fentanyl 50 mcg 10/30/16 16:52 10/30/16 17:05 Sublimaze Injection - IVPUSH 11/02/16 16:53 50 mcg [id number] PRN Administration PAIN Ferrous Sulfate 325 mg 10/30/16 17:30 11/02/16 08:40 Feosol - PO 325 mg BIDWM [facility] Administration Heparin Sodium (Porcine) 5,000 unit 10/30/16 22:00 11/02/16 06:23 Heparin - SQ 5,000 unit TID [facility] Administration Sodium Chloride 1,000 mls @ 83 mls/hr 10/30/16 16:13 11/02/16 01:34 Normal Saline - IV 83 mls/hr ASDIR [facility] Administration Vancomycin HCl 1,250 mg/ 250 mls @ 166.667 mls/hr 10/30/16 22:00 11/01/16 21:42 Dextrose IVPB 166.667 mls/hr DAILY@2200 [facility] Administration Protocol Piperacillin Sod/Tazobactam Sod 50 mls @ 100 mls/hr 10/30/16 18:00 11/02/16 09: 02 Zosyn 3.375gm Ivpb (Pre-Docked) IVPB 100 mls/hr Q8H-IV [facility] Administration Protocol Ibuprofen 600 mg 10/30/16 16:13 Motrin - PO Q6H PRN FEVER Insulin Aspart 1 vial 11/01/16 11:00 11/02/16 06:00 Novolog Vial Sliding Scale - SQ Not Given ACHS [facility] Protocol Insulin Detemir 15 units 10/30/16 22:00 11/01/16 21:53 Levemir Vial SQ 15 units HS [facility] Administration Insulin Detemir 30 units 10/31/16 07:00 11/02/16 06:23 Levemir Vial SQ 30 units AM [facility] Administration Lisinopril 10 mg 10/31/16 10:00 11/02/16 09:02 Prinivil PO 10 mg DAILY [facility] Administration Morphine Sulfate 4 mg 10/30/16 16:06 Morphine Injection - IVPUSH Q6H PRN PAIN Oxycodone HCl 5 mg 10/30/16 16:13 11/01/16 19:28 Roxicodone - PO 5 mg Q4H PRN Administration PAIN ASSESSMENT/PLAN: This is a 56-year-old man with a history of type 2 DM, PAD who was admitted for left 1st toe osteomyelitis. 1. Sepsis secondary to osteomyelitis of left 1st toe - WBC improving - Febrile this morning - Check CXR, blood cultures, lactic acid - Continue Zosyn, Vancomycin - ID follow up - s/p left 1st toe amputation 10/30 - Continue wound care 2. Acute anemia likely secondary to sepsis - Transfused 3 units PRBCs this admission - Hemgolobin stable 3. Anemia secondary to chronic illness 4. Acute hypoxic respiratory failure - Improved 5. Type 2 DM, uncontrolled - Continue Levemir, Novolog sliding scale 6. PAD, history of LLE angioplasty - Continue Plavix 7. HTN - Continue Lisinopril 8. Hepatic transaminitis - AST/ALT normal, alk phos remains high - US shows slightly contracted and thick-walled gallbladder with no stones or ductal dilatation Visit type - Emergency Visit Emergency Visit: Yes ED Registration Date: 10/23/16 Care time: The patient presented to the Emergency Department on the above date and was hospitalized for further evaluation of their emergent condition. - New Patient This patient is new to me today: No - Critical Care Critical Care patient: No - Discharge Referral Referred to [facility] Med P.C.: No
[2016-11-02] MEDS: ACETAMINOPHEN 325 MG TABLET (FP) PO PRN ×2 (09:43→14:14)
[2016-11-02 10:13] LABS: PLATELET COMMENT2 NO CLOTTING DETECTED; PLATELET ESTIMATE MOD INCREASED (NORMAL)
[2016-11-02 10:14] LABS: ANISOCYTOSIS 2+; HYPOCHROMIA 2+; POIKILOCYTOSIS 2+
[2016-11-02] MEDS ORDERED: LISINOPRIL 10 MG TABLET (FP) PO ONE (10:15)
[2016-11-02] MEDS: oxyCODONE HCL 5 MG TABLET PO PRN (14:14)
--- NOTE | 2016-11-02 14:52 | PN ---
Progress Note, Physician History of Present Illness: still spiking fever wbc tending down patient looks comfortable - Current Medication List Current Medications: Active Medications Acetaminophen (Tylenol -) 650 mg PO Q4H PRN PRN Reason: FEVER OR PAIN Last Admin: 11/02/16 14:14 Dose: 650 mg Clopidogrel Bisulfate (Plavix -) 75 mg PO DAILY [facility] Last Admin: 11/02/16 09:02 Dose: 75 mg Docusate Sodium (Colace -) 100 mg PO TID [facility] Last Admin: 11/02/16 13:51 Dose: 100 mg Fentanyl (Sublimaze Injection -) 50 mcg IVPUSH [id number] PRN PRN Reason: PAIN Stop: 11/02/16 16:53 Last Admin: 10/30/16 17:05 Dose: 50 mcg Ferrous Sulfate (Feosol -) 325 mg PO BIDWM [facility] Last Admin: 11/02/16 08:40 Dose: 325 mg Heparin Sodium (Porcine) (Heparin -) 5,000 unit SQ TID [facility] Last Admin: 11/02/16 13:51 Dose: 5,000 unit Sodium Chloride (Normal Saline -) 1,000 mls @ 83 mls/hr IV ASDIR [facility] Last Admin: 11/02/16 01:34 Dose: 83 mls/hr Vancomycin HCl 1,250 mg/ (Dextrose) 250 mls @ 166.667 mls/hr IVPB DAILY@2200 [facility] PRN Reason: Protocol Last Admin: 11/01/16 21:42 Dose: 166.667 mls/hr Piperacillin Sod/Tazobactam Sod (Zosyn 3.375gm Ivpb (Pre-Docked)) 50 mls @ 100 mls/hr IVPB Q8H-IV [facility] PRN Reason: Protocol Last Admin: 11/02/16 09:02 Dose: 100 mls/hr Ibuprofen (Motrin -) 600 mg PO Q6H PRN PRN Reason: FEVER Insulin Aspart (Novolog Vial Sliding Scale -) 1 vial SQ ACHS [facility] PRN Reason: Protocol Last Admin: 11/02/16 12:01 Dose: Not Given Insulin Detemir (Levemir Vial) 15 units SQ HS [facility] Last Admin: 11/01/16 21:53 Dose: 15 units Insulin Detemir (Levemir Vial) 30 units SQ AM [facility] Last Admin: 11/02/16 06:23 Dose: 30 units Lisinopril (Prinivil) 10 mg PO DAILY [facility] Last Admin: 11/02/16 09:02 Dose: 10 mg Morphine Sulfate (Morphine Injection -) 4 mg IVPUSH Q6H PRN PRN Reason: PAIN Oxycodone HCl (Roxicodone -) 5 mg PO Q4H PRN PRN Reason: PAIN Last Admin: 11/02/16 14:14 Dose: 5 mg - Objective Vital Signs: Vital Signs Temperature 102.1 F H 11/02/16 10:00 Pulse Rate 110 H 11/02/16 10:00 Respiratory Rate 20 11/02/16 10:00 Blood Pressure 182/92 11/02/16 10:00 O2 Sat by Pulse Oximetry (%) 94 L 11/02/16 09:00 Constitutional: Yes: No Distress, Calm Cardiovascular: Yes: Regular Rate and Rhythm Respiratory: Yes: Regular, CTA Bilaterally Gastrointestinal: Yes: Normal Bowel Sounds, Soft Musculoskeletal: Yes: Other Extremities: Yes: Other Wound/Incision: Yes: Dressing Dry and Intact Neurological: Yes: Alert, Oriented Psychiatric: Yes: Alert, Oriented Labs: CBC, BMP 11/02/16 06:48 10/31/16 06:40 INR, PTT INR 1.36 (0.82-1.09) H 10/24/16 07:50 Assessment/Plan osteo of the left toe wound infection dm fever leukocytosis wbc trending down plan fever continue abx will check vanco trough rest as per the team wound care
--- NOTE | 2016-11-02 15:28 | PN ---
Progress Note (short form) - Note Progress Note: Vascular Surgery WBC count coming down. However is still having fevers. Cont antiobiotics. Will dylonjs need further debridment and washout. Luis Manuel Ponce dO
[2016-11-02] MEDS ORDERED: INSULIN (NOVOLOG) ASPART 100 UNITS/ML 10ML VIAL ONE (17:38)
[2016-11-02] MEDS ORDERED: PT OWN MED DRAWER 7, Y5N ONE (17:40)
[2016-11-03] MEDS: VANCOMYCIN 1,250 MG in DEXTROSE 5%-WATER - 250 ML IVPB SCH ×2 (00:01→21:39)
[2016-11-03] MEDS: INSULIN SLIDING SCALE (NOVOLOG) 1 VIAL SQ SCH ×5 (00:03→21:38)
[2016-11-03] MEDS: DOCUSATE SODIUM 100 MG CAPSULE (FP) PO SCH ×4 (00:03→21:28)
[2016-11-03] MEDS: ACETAMINOPHEN 325 MG TABLET (FP) PO PRN ×2 (00:09→13:58)
[2016-11-03] MEDS: PIPERACILLIN/TAZOB 3.375 GM 50 ML IVPB SCH ×3 (03:09→17:01)
[2016-11-03] MEDS: SODIUM CHLORIDE 1,000 ML IV SCH ×3 (06:43→21:47)
[2016-11-03] MEDS: HEPARIN NA (PORCINE) 5,000 UNITS/ML 1ML VIAL SQ SCH ×3 (06:43→21:28)
[2016-11-03] MEDS: INSULIN DETEMIR 100 UNITS/ML MDV SQ SCH ×2 (06:46→21:30)
[2016-11-03 09:23] LABS: MCH 26.8 pg (25.7-33.7); MCHC 31.9 g/dl (32.0-35.9); MEAN PLT VOLUME 6.7 fl (7.5-11.1); PLATELET COUNT 607 K/MM3 (134-434); RDW 15.9 % (11.9-15.9); WHITE BLOOD COUNT 20.1 K/mm3 (4.0-10.0)
[2016-11-03] MEDS: CLOPIDOGREL BISULFATE 75 MG TABLET (FP) PO SCH (09:31)
[2016-11-03] MEDS: FERROUS SO4 325 MG TABLET (FP) PO SCH ×2 (09:31→16:35)
[2016-11-03] MEDS: LISINOPRIL 10 MG TABLET (FP) PO SCH (09:31)
[2016-11-03 09:45] LABS: ALBUMIN 1.6 g/dl (3.4-5.0); BILIRUBIN,DIRECT 0.3 mg/dL (0.0-0.2); BILIRUBIN,TOTAL 0.5 mg/dL (0.2-1.0); CALCIUM 7.8 mg/dL (8.5-10.1); COCKROFT - GAULT 132.86; CREATININE 0.8 mg/dL (0.7-1.3); TOT PROT 6.6 g/dl (6.4-8.2)
[2016-11-03 10:44] LABS: ANISOCYTOSIS 1+; HYPOCHROMIA 2+; PLATELET COMMENT2 NO CLOTTING DETECTED; PLATELET COMMENT3 FEW LARGE PLTS; PLATELET ESTIMATE INCREASED (NORMAL); POIKILOCYTOSIS 1+
--- NOTE | 2016-11-03 11:19 | PN ---
Physical Exam: SUBJECTIVE: Patient seen and examined OBJECTIVE: Vital Signs Period Temp Pulse Resp BP Sys/Lopez Pulse Ox Last 24 Hr 98.8 F-101.6 F 95-105 18-20 152-158/78-89 94 GENERAL: The patient is awake, alert, and fully oriented, in no acute distress. LUNGS: Breath sounds equal, clear bilaterally. HEART: Regular rate and rhythm, S1, S2 without murmur, rub or gallop. ABDOMEN: Soft, nontender, nondistended, normoactive bowel sounds, no guarding, no rebound, no hepatosplenomegaly, no masses. EXTREMITIES: Left foot wrapped. 1+ edema LLE. Laboratory Results - last 24 hr 11/02/16 11/02/16 11/03/16 12:00 17:21 00:02 WBC RBC Hgb Hct MCV MCHC RDW Plt Count MPV Neutrophils % Lymphocytes % Monocytes % Band Neutrophils Platelet Estimate Platelet Comment Hypochromic-Microcytic Poikilocytosis Anisocytosis Sodium Potassium Chloride Carbon Dioxide Anion Gap BUN Creatinine POC Glucometer 135 106 108 Random Glucose Calcium Total Bilirubin Direct Bilirubin AST ALT Alkaline Phosphatase Total Protein Albumin Vancomycin Trough 11/03/16 11/03/16 11/03/16 06:45 08:15 08:15 WBC 20.1 H RBC 2.60 L Hgb 7.0 L Hct 21.9 L MCV 84.0 MCHC 31.9 L RDW 15.9 Plt Count 607 H MPV 6.7 L Neutrophils % 86.0 H Lymphocytes % 7.0 L Monocytes % 3.0 L Band Neutrophils 4.0 D Platelet Estimate Increased Platelet Comment No clotting detected Hypochromic-Microcytic 2+ Poikilocytosis 1+ Anisocytosis 1+ Sodium 139 Potassium 4.0 Chloride 106 Carbon Dioxide 25 Anion Gap 8 BUN 18 D Creatinine 0.8 POC Glucometer 98 Random Glucose 115 H Calcium 7.8 L Total Bilirubin 0.5 Direct Bilirubin 0.3 H AST 21 ALT 36 D Alkaline Phosphatase 363 H Total Protein 6.6 Albumin 1.6 L Vancomycin Trough 11/03/16 08:15 WBC RBC Hgb Hct MCV MCHC RDW Plt Count MPV Neutrophils % Lymphocytes % Monocytes % Band Neutrophils Platelet Estimate Platelet Comment Hypochromic-Microcytic Poikilocytosis Anisocytosis Sodium Potassium Chloride Carbon Dioxide Anion Gap BUN Creatinine POC Glucometer Random Glucose Calcium Total Bilirubin Direct Bilirubin AST ALT Alkaline Phosphatase Total Protein Albumin Vancomycin Trough 11.479 H D Active Medications Generic Name Dose Route Start Last Admin Trade Name Freq PRN Reason Stop Dose Admin Acetaminophen 650 mg 10/30/16 16:13 11/03/16 00:09 Tylenol - PO 650 mg Q4H PRN Administration FEVER OR PAIN Clopidogrel Bisulfate 75 mg 10/31/16 10:00 11/03/16 09:31 Plavix - PO 75 mg DAILY [facility] Administration Docusate Sodium 100 mg 10/30/16 22:00 11/03/16 06:43 Colace - PO 100 mg TID [facility] Administration Ferrous Sulfate 325 mg 10/30/16 17:30 11/03/16 09:31 Feosol - PO 325 mg BIDWM [facility] Administration Heparin Sodium (Porcine) 5,000 unit 10/30/16 22:00 11/03/16 06:43 Heparin - SQ 5,000 unit TID [facility] Administration Sodium Chloride 1,000 mls @ 83 mls/hr 10/30/16 16:13 11/03/16 06:43 Normal Saline - IV 83 mls/hr ASDIR [facility] Administration Vancomycin HCl 1,250 mg/ 250 mls @ 166.667 mls/hr 10/30/16 22:00 11/03/16 00:01 Dextrose IVPB 166.667 mls/hr DAILY@2200 [facility] Administration Protocol Piperacillin Sod/Tazobactam Sod 50 mls @ 100 mls/hr 10/30/16 18:00 11/03/16 09: 31 Zosyn 3.375gm Ivpb (Pre-Docked) IVPB 100 mls/hr Q8H-IV [facility] Administration Protocol Ibuprofen 600 mg 10/30/16 16:13 Motrin - PO Q6H PRN FEVER Insulin Aspart 1 vial 11/01/16 11:00 11/03/16 06:46 Novolog Vial Sliding Scale - SQ Not Given ACHS [facility] Protocol Insulin Detemir 15 units 10/30/16 22:00 11/02/16 23:59 Levemir Vial SQ 15 units HS [facility] Administration Insulin Detemir 30 units 10/31/16 07:00 11/03/16 06:46 Levemir Vial SQ Not Given AM [facility] Lisinopril 10 mg 10/31/16 10:00 11/03/16 09:31 Prinivil PO 10 mg DAILY [facility] Administration ASSESSMENT/PLAN: This is a 56-year-old man with a history of type 2 DM, PAD who was admitted for left 1st toe osteomyelitis. 1. Sepsis secondary to osteomyelitis of left 1st toe, possible pneumonia - WBC improving - Had temp 101.6 overnight - Blood cultures negative after 24 hours - Continue Zosyn, Vancomycin - s/p left 1st toe amputation 10/30 - Continue wound care - Will need further debridement 2. Acute anemia likely secondary to sepsis - Transfused 3 units PRBCs this admission - Continue ferrous sulfate - Transfuse for Hgb<7.0 3. Anemia secondary to chronic illness 4. Acute hypoxic respiratory failure - Improved 5. Type 2 DM, uncontrolled - Continue Levemir, Novolog sliding scale 6. PAD, history of LLE angioplasty - Continue Plavix 7. HTN - Continue Lisinopril 8. Hepatic transaminitis - AST/ALT normal, alk phos remains high but improving - US shows slightly contracted and thick-walled gallbladder with no stones or ductal dilatation Visit type - Emergency Visit Emergency Visit: Yes ED Registration Date: 10/23/16 Care time: The patient presented to the Emergency Department on the above date and was hospitalized for further evaluation of their emergent condition. - New Patient This patient is new to me today: No - Critical Care Critical Care patient: No - Discharge Referral Referred to [facility] Med P.C.: No
[2016-11-03] MEDS ORDERED: PT OWN MED DRAWER 7, Y5N ONE (12:53)
--- NOTE | 2016-11-03 17:19 | PN ---
Progress Note, Physician History of Present Illness: dressing removed foot still with pus still with fevers - Current Medication List Current Medications: Active Medications Acetaminophen (Tylenol -) 650 mg PO Q4H PRN PRN Reason: FEVER OR PAIN Last Admin: 11/03/16 13:58 Dose: 650 mg Clopidogrel Bisulfate (Plavix -) 75 mg PO DAILY [facility] Last Admin: 11/03/16 09:31 Dose: 75 mg Docusate Sodium (Colace -) 100 mg PO TID [facility] Last Admin: 11/03/16 13:02 Dose: 100 mg Ferrous Sulfate (Feosol -) 325 mg PO BIDWM [facility] Last Admin: 11/03/16 16:35 Dose: 325 mg Heparin Sodium (Porcine) (Heparin -) 5,000 unit SQ TID [facility] Last Admin: 11/03/16 13:01 Dose: 5,000 unit Sodium Chloride (Normal Saline -) 1,000 mls @ 83 mls/hr IV ASDIR [facility] Last Admin: 11/03/16 16:35 Dose: Not Given Vancomycin HCl 1,250 mg/ (Dextrose) 250 mls @ 166.667 mls/hr IVPB DAILY@2200 [facility] PRN Reason: Protocol Last Admin: 11/03/16 00:01 Dose: 166.667 mls/hr Piperacillin Sod/Tazobactam Sod (Zosyn 3.375gm Ivpb (Pre-Docked)) 50 mls @ 100 mls/hr IVPB Q8H-IV [facility] PRN Reason: Protocol Last Admin: 11/03/16 17:01 Dose: 100 mls/hr Ibuprofen (Motrin -) 600 mg PO Q6H PRN PRN Reason: FEVER Insulin Aspart (Novolog Vial Sliding Scale -) 1 vial SQ ACHS [facility] PRN Reason: Protocol Last Admin: 11/03/16 17:01 Dose: 2 unit Insulin Detemir (Levemir Vial) 15 units SQ HS [facility] Last Admin: 11/02/16 23:59 Dose: 15 units Insulin Detemir (Levemir Vial) 30 units SQ AM [facility] Last Admin: 11/03/16 06:46 Dose: Not Given Lisinopril (Prinivil) 10 mg PO DAILY [facility] Last Admin: 11/03/16 09:31 Dose: 10 mg - Objective Vital Signs: Vital Signs Temperature 100.6 F H 11/03/16 10:00 Pulse Rate 107 H 11/03/16 14:16 Respiratory Rate 18 11/03/16 14:16 Blood Pressure 158/87 11/03/16 14:16 O2 Sat by Pulse Oximetry (%) 94 L 11/02/16 21:00 Constitutional: Yes: No Distress, Calm Cardiovascular: Yes: Regular Rate and Rhythm Respiratory: Yes: Regular, CTA Bilaterally Gastrointestinal: Yes: Normal Bowel Sounds, Soft Musculoskeletal: Yes: Other Extremities: Yes: Other Integumentary: Yes: Other Wound/Incision: Yes: Dressing Removed, Draining, Other (still infected) Neurological: Yes: Alert, Oriented Psychiatric: Yes: Alert Labs: CBC, BMP 11/03/16 08:15 11/03/16 08:15 INR, PTT INR 1.36 (0.82-1.09) H 10/24/16 07:50 Assessment/Plan osteo of the left toe wound infection dm fever leukocytosis wbc trending down plan fever continue abx vanco trough noted rest as per the team wound care patient needs to go ot the or again
[2016-11-04] MEDS: PIPERACILLIN/TAZOB 3.375 GM 50 ML IVPB SCH ×3 (01:38→17:22)
[2016-11-04] MEDS: HEPARIN NA (PORCINE) 5,000 UNITS/ML 1ML VIAL SQ SCH ×3 (06:34→23:12)
[2016-11-04] MEDS: DOCUSATE SODIUM 100 MG CAPSULE (FP) PO SCH ×3 (06:34→21:05)
[2016-11-04] MEDS: INSULIN DETEMIR 100 UNITS/ML MDV SQ SCH (06:41)
[2016-11-04] MEDS: INSULIN SLIDING SCALE (NOVOLOG) 1 VIAL SQ SCH ×4 (06:41→21:47)
[2016-11-04 07:29] LABS: MCH 26.7 pg (25.7-33.7); MCHC 31.8 g/dl (32.0-35.9); MEAN CELL VOLUME 83.9 fl (80-96); MEAN PLT VOLUME 6.5 fl (7.5-11.1); PLATELET COUNT 619 K/MM3 (134-434); RDW 15.7 % (11.9-15.9); WHITE BLOOD COUNT 22.5 K/mm3 (4.0-10.0)
[2016-11-04 08:21] LABS: ALBUMIN 1.6 g/dl (3.4-5.0); ALK PHOS 368 U/L (45-117); ANION GAP 9 (8-16); BILIRUBIN,TOTAL 0.4 mg/dL (0.2-1.0); CALCIUM 7.8 mg/dL (8.5-10.1); CO2 25 mmol/L (21-32); COCKROFT - GAULT 132.86; CREATININE 0.8 mg/dL (0.7-1.3); GLUCOSE,RANDOM 106 mg/dL (74-106); SGOT/AST 25 U/L (15-37); SGPT/ALT 33 U/L (12-78); TOT PROT 6.7 g/dl (6.4-8.2)
[2016-11-04] MEDS: LISINOPRIL 10 MG TABLET (FP) PO SCH (10:02)
[2016-11-04] MEDS: CLOPIDOGREL BISULFATE 75 MG TABLET (FP) PO SCH (10:03)
[2016-11-04] MEDS: FERROUS SO4 325 MG TABLET (FP) PO SCH ×2 (10:03→17:22)
--- NOTE | 2016-11-04 10:14 | PN ---
Progress Note (short form) - Note Progress Note: Pt with occasional left foot pain. Vital Signs Period Temp Pulse Resp BP Sys/Lopez Pulse Ox Last 24 Hr 98.5 F-99.8 F 98-107 18-20 158-164/84-97 94 PE: Left foot: wound base with fibrinous/necrotic material. No foul odor. No plantar surface bogginess/erythema. Dorsal aspect with eschar over the extensor tendon surface near the base of the 3/4 toe. CBC, BMP 11/04/16 06:15 11/04/16 06:15 Microbiology 11/02/16 10:05 Blood - Peripheral Venous Blood Culture - Preliminary NO GROWTH OBTAINED AFTER 48 HOURS, INCUBATION TO CONTINUE FOR 3 DAYS. 11/02/16 10:05 Blood - Peripheral Venous Blood Culture - Preliminary NO GROWTH OBTAINED AFTER 48 HOURS, INCUBATION TO CONTINUE FOR 3 DAYS. A/P 56 yo male s/p left great toe amp/partial ray amputation for abscess. pt with improved fever but WBC remains elevated and wound base with slough/ necrotic tissue D/w Dr. Ponce and will plan for surgery tomorrow. washout/debridement of left foot. Continue local wound care santyl/wet to dry dressing reapplied IV abx
[2016-11-04 13:21] LABS: METAMYELOCYTE 1 % (0-2)
[2016-11-04 13:22] LABS: PLATELET ESTIMATE INCREASED (NORMAL)
--- NOTE | 2016-11-04 15:30 | PN ---
Physical Exam: SUBJECTIVE: Patient seen and examined C/o weakness , fatigue C/o shortness of breath overnight last fever yesterday, no fever overnight OBJECTIVE: Vital Signs Period Temp Pulse Resp BP Sys/Lopez Pulse Ox Last 24 Hr 98.5 F-99.8 F 96-106 18-20 158-170/80-97 94 GENERAL: The patient is awake, alert, and fully oriented, in no acute distress. HEAD: Normal with no signs of trauma. LUNGS: bibasilar crakles on auscultation , no accessory muscle use. HEART: Regular rate and rhythm, S1, S2 with systolic and diastolic murmur, no rub or gallop. ABDOMEN: Soft, nontender, nondistended, normoactive bowel sounds, no guarding, no rebound, no hepatosplenomegaly, no masses. EXTREMITIES: 2+ pulses, warm, well-perfused, no edema in upper ext NEUROLOGICAL: Normal speech, gait not observed. PSYCH: Normal mood, normal affect. SKIN: Warm, dry, normal turgor, no rashes or lesions noted. s/p left great with first ray amputation. Left foot covered with gauze and kerlix, clean, dry and intact. Laboratory Results - last 24 hr 11/03/16 11/03/16 11/04/16 16:58 21:33 06:15 WBC 22.5 H RBC 2.65 L Hgb 7.1 L Hct 22.2 L MCV 83.9 MCHC 31.8 L RDW 15.7 Plt Count 619 H MPV 6.5 L Neutrophils % 83.0 H Lymphocytes % 14.0 D Monocytes % 1.0 L Band Neutrophils 1.0 D Metamyelocytes 1 Differential Comment Manual diff done Platelet Estimate Increased Sodium Potassium Chloride Carbon Dioxide Anion Gap BUN Creatinine Creat Clearance w eGFR POC Glucometer 173 211 Random Glucose Calcium Total Bilirubin AST ALT Alkaline Phosphatase Total Protein Albumin Blood Type Antibody Screen 11/04/16 11/04/16 11/04/16 06:15 06:37 11:28 WBC RBC Hgb Hct MCV MCHC RDW Plt Count MPV Neutrophils % Lymphocytes % Monocytes % Band Neutrophils Metamyelocytes Differential Comment Platelet Estimate Sodium 139 Potassium 4.0 Chloride 105 Carbon Dioxide 25 Anion Gap 9 BUN 17 Creatinine 0.8 Creat Clearance w eGFR > 60 POC Glucometer 121 111 Random Glucose 106 Calcium 7.8 L Total Bilirubin 0.4 AST 25 ALT 33 Alkaline Phosphatase 368 H Total Protein 6.7 Albumin 1.6 L Blood Type Antibody Screen 11/04/16 12:25 WBC RBC Hgb Hct MCV MCHC RDW Plt Count MPV Neutrophils % Lymphocytes % Monocytes % Band Neutrophils Metamyelocytes Differential Comment Platelet Estimate Sodium Potassium Chloride Carbon Dioxide Anion Gap BUN Creatinine Creat Clearance w eGFR POC Glucometer Random Glucose Calcium Total Bilirubin AST ALT Alkaline Phosphatase Total Protein Albumin Blood Type O NEGATIVE Antibody Screen Negative Active Medications Generic Name Dose Route Start Last Admin Trade Name Freq PRN Reason Stop Dose Admin Acetaminophen 650 mg 10/30/16 16:13 11/03/16 13:58 Tylenol - PO 650 mg Q4H PRN Administration FEVER OR PAIN Clopidogrel Bisulfate 75 mg 10/31/16 10:00 11/04/16 10:03 Plavix - PO 75 mg DAILY [facility] Administration Docusate Sodium 100 mg 10/30/16 22:00 11/04/16 14:17 Colace - PO 100 mg TID [facility] Administration Ferrous Sulfate 325 mg 10/30/16 17:30 11/04/16 10:03 Feosol - PO 325 mg BIDWM [facility] Administration Heparin Sodium (Porcine) 5,000 unit 10/30/16 22:00 11/04/16 14:17 Heparin - SQ 5,000 unit TID [facility] Administration Sodium Chloride 1,000 mls @ 83 mls/hr 10/30/16 16:13 11/03/16 21:47 Normal Saline - IV 83 mls/hr ASDIR [facility] Administration Vancomycin HCl 1,250 mg/ 250 mls @ 166.667 mls/hr 10/30/16 22:00 11/03/16 21:39 Dextrose IVPB 166.667 mls/hr DAILY@2200 [facility] Administration Protocol Piperacillin Sod/Tazobactam Sod 50 mls @ 100 mls/hr 10/30/16 18:00 11/04/16 10: 01 Zosyn 3.375gm Ivpb (Pre-Docked) IVPB 100 mls/hr Q8H-IV [facility] Administration Protocol Ibuprofen 600 mg 10/30/16 16:13 Motrin - PO Q6H PRN FEVER Insulin Aspart 1 vial 11/01/16 11:00 11/04/16 11:31 Novolog Vial Sliding Scale - SQ Not Given ACHS [facility] Protocol Insulin Detemir 15 units 10/30/16 22:00 11/03/16 21:30 Levemir Vial SQ 15 units HS [facility] Administration Insulin Detemir 30 units 10/31/16 07:00 11/04/16 06:41 Levemir Vial SQ 30 units AM [facility] Administration Lisinopril 10 mg 10/31/16 10:00 11/04/16 10:02 Prinivil PO 10 mg DAILY [facility] Administration CBC, BMP 11/04/16 06:15 11/04/16 06:15 ASSESSMENT/PLAN: 56 year old male with pmh of uncontrolled diabetes and gangrenous left foot s/p angioplasty on 08/2016 was admitted for Sepsis from osteomyelitis of left great toe, post op day 5 S/P left great with first ray amputation day 5 no fever overnight Pain medication PRN Continue Zosyn and Vancomycin per ID day 5 Left great toe culture negative Pt to go to OR in am since further debridment is necessary per Dr krause Acute anemia iron deficiency vs anemia of chronic disease vs Sepsis induced hgb 7.1 fesol 325mg po TIDWM Increase with hgb less than 7 AM labs pending Acute resp distress rt anemia, pulmonary congestion Monitor CBC keep O2 sat >90% nasal canula PRN CXR now Consider LAsix 40mg IV once Transaminitis with elevated ALP US right upper quadrant showed no dilated CBD, No cholelithiasis transaminitis Likely due to sepsis Will continue to Trend Liver enzymes Uncontrolled Diabetes hgba1c was 11.8 in august, now it is 12.4 blood Glucose more controlled now On Levemir 30 units qAM and Levemir 15 units qhs, Hold levemir in am Novolog sliding scale ACHS HTN Lisinopril 10mg PO daily increase to 20mg PO daily FEN Fluid: none Electrolytes: no abnormalities Nutrition: diabetic diet Disposition: Pending resolution of sepsis/left foot debridment in am Visit type - Emergency Visit Emergency Visit: Yes ED Registration Date: 10/23/16 Care time: The patient presented to the Emergency Department on the above date and was hospitalized for further evaluation of their emergent condition. - New Patient This patient is new to me today: Yes - Critical Care Critical Care patient: No - Discharge Referral Referred to [facility] Med P.C.: No
--- NOTE | 2016-11-04 17:59 | PN ---
Progress Note, Physician History of Present Illness: weak fever increased wbc - Current Medication List Current Medications: Active Medications Acetaminophen (Tylenol -) 650 mg PO Q4H PRN PRN Reason: FEVER OR PAIN Last Admin: 11/03/16 13:58 Dose: 650 mg Clopidogrel Bisulfate (Plavix -) 75 mg PO DAILY [facility] Last Admin: 11/04/16 10:03 Dose: 75 mg Docusate Sodium (Colace -) 100 mg PO TID [facility] Last Admin: 11/04/16 14:17 Dose: 100 mg Ferrous Sulfate (Feosol -) 325 mg PO BIDWM [facility] Last Admin: 11/04/16 17:22 Dose: 325 mg Heparin Sodium (Porcine) (Heparin -) 5,000 unit SQ TID [facility] Last Admin: 11/04/16 14:17 Dose: 5,000 unit Vancomycin HCl 1,250 mg/ (Dextrose) 250 mls @ 166.667 mls/hr IVPB DAILY@2200 [facility] PRN Reason: Protocol Last Admin: 11/03/16 21:39 Dose: 166.667 mls/hr Piperacillin Sod/Tazobactam Sod (Zosyn 3.375gm Ivpb (Pre-Docked)) 50 mls @ 100 mls/hr IVPB Q8H-IV [facility] PRN Reason: Protocol Last Admin: 11/04/16 17:22 Dose: 100 mls/hr Ibuprofen (Motrin -) 600 mg PO Q6H PRN PRN Reason: FEVER Insulin Aspart (Novolog Vial Sliding Scale -) 1 vial SQ ACHS [facility] PRN Reason: Protocol Last Admin: 11/04/16 17:22 Dose: Not Given Insulin Detemir (Levemir Vial) 15 units SQ HS [facility] Last Admin: 11/03/16 21:30 Dose: 15 units Insulin Detemir (Levemir Vial) 30 units SQ AM [facility] Last Admin: 11/04/16 06:41 Dose: 30 units Lisinopril (Prinivil) 10 mg PO DAILY [facility] Last Admin: 11/04/16 10:02 Dose: 10 mg - Objective Vital Signs: Vital Signs Temperature 98.6 F 11/04/16 14:47 Pulse Rate 96 H 11/04/16 14:47 Respiratory Rate 20 11/04/16 14:47 Blood Pressure 160/93 11/04/16 14:47 O2 Sat by Pulse Oximetry (%) 94 L 11/04/16 09:00 Constitutional: Yes: Calm, Mild Distress Cardiovascular: Yes: Regular Rate and Rhythm Respiratory: Yes: Regular, CTA Bilaterally Gastrointestinal: Yes: Normal Bowel Sounds, Soft Musculoskeletal: Yes: Other Extremities: Yes: Other Wound/Incision: Yes: Dressing Dry and Intact Neurological: Yes: Alert, Oriented Psychiatric: Yes: Alert Labs: CBC, BMP 11/04/16 06:15 11/04/16 06:15 INR, PTT INR 1.36 (0.82-1.09) H 10/24/16 07:50 Assessment/Plan osteo of the left toe wound infection dm fever leukocytosis wbc trending upward plan continue abc close monitoring on wbc patient will probably need more procedures rest as per the teams and surgeon
--- NOTE | 2016-11-04 18:26 | PN ---
Teaching Attending Note Name of Resident: Eulogio Wiley ATTENDING PHYSICIAN STATEMENT I saw and evaluated the patient. I reviewed the resident's note and discussed the case with the resident. I agree with the resident's findings and plan as documented. SUBJECTIVE: Patient felt SOB overnight. Better this morning. OBJECTIVE: Vital Signs Period Temp Pulse Resp BP Sys/Lopez Pulse Ox Last 24 Hr 98.5 F-99.8 F 96-106 18-20 155-170/80-97 94-94 HEART: S1S2, RRR LUNGS: Bibasilar crackles ABDOMEN: Soft, non-tender, non-distended, normal BS EXTREMITIES: 1+ edema LLE, left foot wrapped ASSESSMENT AND PLAN: This is a 56-year-old man with a history of type 2 DM, PAD who was admitted for left 1st toe osteomyelitis. 1. Sepsis secondary to osteomyelitis of left 1st toe, possible pneumonia - Afebrile, WBC increasing - Blood cultures negative - Continue Zosyn, Vancomycin - s/p left 1st toe/partial ray amputation 10/30 - Continue wound care - Plan for further debridement tomorrow 2. Acute anemia likely secondary to sepsis - Transfused 3 units PRBCs this admission - Continue ferrous sulfate - Transfuse for Hgb<7.0 3. Anemia secondary to chronic illness 4. Acute hypoxic respiratory failure - Improved 5. Type 2 DM, uncontrolled - Continue Levemir, Novolog sliding scale 6. PAD, history of LLE angioplasty - Continue Plavix 7. HTN - Continue Lisinopril 8. Hepatic transaminitis - AST/ALT normal, alk phos remains high - US shows slightly contracted and thick-walled gallbladder with no stones or ductal dilatation
[2016-11-04] MEDS ORDERED: FUROSEMIDE 40 MG/4 ML INJECTABLE VIAL IVPUSH ONE (20:35)
[2016-11-04] MEDS ORDERED: INSULIN (NOVOLOG) ASPART 100 UNITS/ML 10ML VIAL ONE (20:52)
[2016-11-04] MEDS: VANCOMYCIN 1,250 MG in DEXTROSE 5%-WATER - 250 ML IVPB SCH (21:05)
[2016-11-05] MEDS ORDERED: SODIUM CHLORIDE 1,000 ML IV SCH ×2 (02:00→14:11)
[2016-11-05] MEDS: PIPERACILLIN/TAZOB 3.375 GM 50 ML IVPB SCH ×3 (02:11→17:45)
[2016-11-05] MEDS: HEPARIN NA (PORCINE) 5,000 UNITS/ML 1ML VIAL SQ SCH ×3 (05:05→21:27)
[2016-11-05] MEDS: DOCUSATE SODIUM 100 MG CAPSULE (FP) PO SCH ×3 (05:05→21:27)
[2016-11-05] MEDS: INSULIN SLIDING SCALE (NOVOLOG) 1 VIAL SQ SCH ×4 (06:14→21:28)
[2016-11-05 07:38] LABS: MCHC 32.2 g/dl (32.0-35.9); MEAN CELL VOLUME 84.1 fl (80-96); MEAN PLT VOLUME 6.5 fl (7.5-11.1); PLATELET COUNT 588 K/MM3 (134-434); RDW 15.9 % (11.9-15.9)
[2016-11-05 07:57] LABS: CALCIUM 8.3 mg/dL (8.5-10.1); COCKROFT - GAULT 132.86; CREATININE 0.8 mg/dL (0.7-1.3)
--- NOTE | 2016-11-05 09:23 | PN ---
Progress Note, Physician History of Present Illness: still with high wbc and fever though low grade patient feels very weak - Current Medication List Current Medications: Active Medications Acetaminophen (Tylenol -) 650 mg PO Q4H PRN PRN Reason: FEVER OR PAIN Last Admin: 11/03/16 13:58 Dose: 650 mg Albuterol/Ipratropium (Duoneb -) 1 amp NEB Q6H [facility] Clopidogrel Bisulfate (Plavix -) 75 mg PO DAILY [facility] Last Admin: 11/04/16 10:03 Dose: 75 mg Docusate Sodium (Colace -) 100 mg PO TID [facility] Last Admin: 11/05/16 05:05 Dose: Not Given Ferrous Sulfate (Feosol -) 325 mg PO BIDWM [facility] Last Admin: 11/04/16 17:22 Dose: 325 mg Heparin Sodium (Porcine) (Heparin -) 5,000 unit SQ TID [facility] Last Admin: 11/05/16 05:05 Dose: Not Given Vancomycin HCl 1,250 mg/ (Dextrose) 250 mls @ 166.667 mls/hr IVPB DAILY@2200 [facility] PRN Reason: Protocol Last Admin: 11/04/16 21:05 Dose: 166.667 mls/hr Piperacillin Sod/Tazobactam Sod (Zosyn 3.375gm Ivpb (Pre-Docked)) 50 mls @ 100 mls/hr IVPB Q8H-IV [facility] PRN Reason: Protocol Last Admin: 11/05/16 02:11 Dose: 100 mls/hr Sodium Chloride (Normal Saline -) 1,000 mls @ 50 mls/hr IV ASDIR [facility] Stop: 11/05/16 21:53 Last Admin: 11/05/16 05:05 Dose: Not Given Ibuprofen (Motrin -) 600 mg PO Q6H PRN PRN Reason: FEVER Last Admin: 11/04/16 20:57 Dose: 600 mg Insulin Aspart (Novolog Vial Sliding Scale -) 1 vial SQ ACHS [facility] PRN Reason: Protocol Last Admin: 11/05/16 06:14 Dose: 2 unit Insulin Detemir (Levemir Vial) 15 units SQ HS [facility] Last Admin: 11/03/16 21:30 Dose: 15 units Insulin Detemir (Levemir Vial) 30 units SQ AM [facility] Last Admin: 11/04/16 06:41 Dose: 30 units Lisinopril (Prinivil) 20 mg PO DAILY [facility] - Objective Vital Signs: Vital Signs Temperature 96.9 F L 11/05/16 07:56 Pulse Rate 90 11/05/16 07:56 Respiratory Rate 20 11/05/16 07:56 Blood Pressure 157/94 11/05/16 07:56 O2 Sat by Pulse Oximetry (%) 94 L 11/04/16 21:00 Constitutional: Yes: No Distress, Calm Cardiovascular: Yes: Regular Rate and Rhythm Respiratory: Yes: Regular, CTA Bilaterally Gastrointestinal: Yes: Normal Bowel Sounds, Soft Musculoskeletal: Yes: Other Extremities: Yes: Other Wound/Incision: Yes: Dressing Dry and Intact Neurological: Yes: Alert, Oriented Psychiatric: Yes: Alert, Oriented Labs: CBC, BMP 11/05/16 06:30 11/05/16 06:30 INR, PTT INR 1.36 (0.82-1.09) H 10/24/16 07:50 Assessment/Plan osteo of the left toe wound infection dm fever leukocytosis wbc trending upward plan continue monitoring rest as per primary and vascular surgery
[2016-11-05] MEDS ORDERED: LISINOPRIL 20 MG TABLET (FP) PO SCH (10:00)
[2016-11-05] MEDS: ALBUTEROL SO4 2.5/IPRATROPIUM 0.5 INH SOL 3 ML VIAL.NEB. NEB SCH ×4 (10:10→23:27)
[2016-11-05] MEDS ORDERED: PT OWN MED DRAWER 7, Y5N ONE (10:13)
[2016-11-05] MEDS: FERROUS SO4 325 MG TABLET (FP) PO SCH ×2 (10:15→17:45)
[2016-11-05] MEDS ORDERED: LIDOCAINE HCL 1%, 10 MG/ML (20ML VIAL) ONE ×2 (11:17→13:17)
[2016-11-05] MEDS ORDERED: INSULIN (NOVOLOG) ASPART 100 UNITS/ML 10ML VIAL ONE (11:27)
[2016-11-05] MEDS ORDERED: FUROSEMIDE 40 MG/4 ML INJECTABLE VIAL IVPUSH ONE (11:30)
[2016-11-05] MEDS: CLOPIDOGREL BISULFATE 75 MG TABLET (FP) PO SCH (11:32)
--- NOTE | 2016-11-05 12:03 | PN ---
Physical Exam: SUBJECTIVE: Patient seen and examined Pt is awake and alert and oriented Pt still complaining of shortness of breath No fever overnight, no chills no chest or pain palpitation OBJECTIVE: Vital Signs Period Temp Pulse Resp BP Sys/Lopez Pulse Ox Last 24 Hr 96.9 F-99.3 F 89-109 20-22 152-192/84-103 94 GENERAL: The patient is awake, alert, and fully oriented, in no acute distress. HEAD: Normal with no signs of trauma. LUNGS: bibasilar crakles on auscultation, expiratory wheezes b/l , no accessory muscle use. HEART: Regular rate and rhythm, S1, S2 with systolic and diastolic murmur, no rub or gallop. ABDOMEN: Soft, nontender, nondistended, normoactive bowel sounds, no guarding, no rebound, no hepatosplenomegaly, no masses. EXTREMITIES: 2+ pulses, warm, well-perfused, no edema in upper ext. Lower ext edema, trace in right and 2+ in left NEUROLOGICAL: Normal speech, gait not observed. PSYCH: Normal mood, normal affect. SKIN: Warm, dry, normal turgor, no rashes or lesions noted. s/p left great with first ray amputation. Left foot covered with gauze and kerlix, clean, dry and intact. Laboratory Results - last 24 hr 11/04/16 11/04/16 11/04/16 06:15 12:25 16:52 WBC RBC Hgb Hct MCV MCHC RDW Plt Count MPV Neutrophils % 83.0 H Lymphocytes % 14.0 D Monocytes % 1.0 L Band Neutrophils 1.0 D Metamyelocytes 1 Differential Comment Manual diff done Platelet Estimate Increased Sodium Potassium Chloride Carbon Dioxide Anion Gap BUN Creatinine POC Glucometer 133 Random Glucose Calcium Stool Occult Blood Blood Type O NEGATIVE Antibody Screen Negative 11/04/16 11/04/16 11/05/16 19:27 21:45 05:36 WBC RBC Hgb Hct MCV MCHC RDW Plt Count MPV Neutrophils % Lymphocytes % Monocytes % Band Neutrophils Metamyelocytes Differential Comment Platelet Estimate Sodium Potassium Chloride Carbon Dioxide Anion Gap BUN Creatinine POC Glucometer 208 185 Random Glucose Calcium Stool Occult Blood Negative Blood Type Antibody Screen 11/05/16 11/05/16 11/05/16 06:30 06:30 10:56 WBC 17.0 H RBC 2.61 L Hgb 7.1 L Hct 21.9 L MCV 84.1 MCHC 32.2 RDW 15.9 Plt Count 588 H MPV 6.5 L Neutrophils % Lymphocytes % Monocytes % Band Neutrophils Metamyelocytes Differential Comment Platelet Estimate Sodium 140 Potassium 4.2 Chloride 105 Carbon Dioxide 26 Anion Gap 9 BUN 16 Creatinine 0.8 POC Glucometer 166 Random Glucose 159 H D Calcium 8.3 L Stool Occult Blood Blood Type Antibody Screen Active Medications Generic Name Dose Route Start Last Admin Trade Name Freq PRN Reason Stop Dose Admin Acetaminophen 650 mg 10/30/16 16:13 11/03/16 13:58 Tylenol - PO 650 mg Q4H PRN Administration FEVER OR PAIN Albuterol/Ipratropium 1 amp 11/05/16 08:30 11/05/16 11:27 Duoneb - NEB Not Given QIDR [facility] Clopidogrel Bisulfate 75 mg 10/31/16 10:00 11/05/16 11:32 Plavix - PO 75 mg DAILY [facility] Administration Docusate Sodium 100 mg 10/30/16 22:00 11/05/16 05:05 Colace - PO Not Given TID [facility] Ferrous Sulfate 325 mg 10/30/16 17:30 11/05/16 10:15 Feosol - PO 325 mg BIDWM [facility] Administration Heparin Sodium (Porcine) 5,000 unit 10/30/16 22:00 11/05/16 05:05 Heparin - SQ Not Given TID [facility] Vancomycin HCl 1,250 mg/ 250 mls @ 166.667 mls/hr 10/30/16 22:00 11/04/16 21:05 Dextrose IVPB 166.667 mls/hr DAILY@2200 [facility] Administration Protocol Piperacillin Sod/Tazobactam Sod 50 mls @ 100 mls/hr 10/30/16 18:00 11/05/16 10: 15 Zosyn 3.375gm Ivpb (Pre-Docked) IVPB 100 mls/hr Q8H-IV [facility] Administration Protocol Sodium Chloride 1,000 mls @ 50 mls/hr 11/05/16 02:00 11/05/16 05:05 Normal Saline - IV 11/05/16 21:53 Not Given ASDIR [facility] Ibuprofen 600 mg 10/30/16 16:13 11/04/16 20:57 Motrin - PO 600 mg Q6H PRN Administration FEVER Insulin Aspart 1 vial 04/28/17 11:00 11/05/16 11:30 Novolog Vial Sliding Scale - SQ Not Given ACHS [facility] Protocol Insulin Detemir 15 units 10/30/16 22:00 11/03/16 21:30 Levemir Vial SQ 15 units HS [facility] Administration Insulin Detemir 30 units 10/31/16 07:00 11/04/16 06:41 Levemir Vial SQ 30 units AM [facility] Administration Lisinopril 20 mg 11/05/16 10:00 11/05/16 10:15 Prinivil PO 20 mg DAILY [facility] Administration CBC, BMP 11/05/16 06:30 11/05/16 06:30 ASSESSMENT/PLAN: 56 year old male with pmh of uncontrolled diabetes and gangrenous left foot s/p angioplasty on 08/2016 was admitted for Sepsis from osteomyelitis of left great toe, post op day 5 S/P left great with first ray amputation day 6 no fever overnight Pain medication PRN WBC 17 consider ESR and CRP in am Continue Zosyn and Vancomycin per ID day 6 Left great toe culture negative Pt to go to OR today 1 pm for further debridment with Dr krause Acute anemia iron deficiency vs anemia of chronic disease vs Sepsis induced hgb 7.1 fesol 325mg po TIDWM transfuse if hgb less than 7 AM labs pending Acute resp distress rt anemia, pulmonary congestion Pt c/o shortness of breath overnight CXR done this morning still having pulmonary congestion Pt has b/l crackles in wheezes LAsix 40mg IV once Duoneb inh q6h Monitor CBC keep O2 sat >90% nasal canula PRN Transaminitis with elevated ALP US right upper quadrant showed no dilated CBD, No cholelithiasis transaminitis Likely due to sepsis LFT trending down Uncontrolled Diabetes hgba1c was 11.8 in august, now it is 12.4 blood Glucose more controlled now On Levemir 30 units qAM and Levemir 15 units qhs, Hold levemir in am for surgery and NPO Novolog sliding scale ACHS HTN Lisinopril to 20mg PO daily FEN Fluid: none Electrolytes: no abnormalities Nutrition: diabetic diet Disposition: Pending resolution of sepsis/left foot debridment in am Visit type - Emergency Visit Emergency Visit: Yes ED Registration Date: 10/23/16 Care time: The patient presented to the Emergency Department on the above date and was hospitalized for further evaluation of their emergent condition. - New Patient This patient is new to me today: Yes Date on this admission: 11/05/16 - Critical Care Critical Care patient: No - Discharge Referral Referred to [facility] Med [facility].: No
[2016-11-05] MEDS ORDERED: ACETAMINOPHEN INJECTION 100 ML IVPB ONE ×2 (13:06→13:07)
[2016-11-05] MEDS ORDERED: IBUPROFEN 800 MG/8 ML IJ IVPB ONE (13:06)
[2016-11-05] MEDS ORDERED: LIDOCAINE HCL 1%, 10 MG/ML (20ML VIAL) IJ ONE (13:15)
[2016-11-05] MEDS ORDERED: ONDANSETRON 4 MG/2 ML VIAL IVPUSH PRN ×2 (13:29→14:11)
--- NOTE | 2016-11-05 13:55 | OP ---
Operative Note - Note: Operative Date: 11/05/16 Pre-Operative Diagnosis: Left foot gangrene with abscess Operation: Excisional debridement of left foot -- skin, subcutaneous tissue, muscle, tendon. Findings: No viable tendon and muscle removed. Pus found in wound. Pulse irragated. Post-Operative Diagnosis: Same as Pre-op Surgeon: Luis Manuel Ponce Anesthesia: Fractional Estimated Blood Loss (mls): 50 Operative Report Dictated: Yes
[2016-11-05] MEDS ORDERED: IBUPROFEN 600 MG TABLET (FP) PO PRN (14:11)
--- NOTE | 2016-11-05 18:12 | PN ---
Teaching Attending Note Name of Resident: Eulogio Wiley ATTENDING PHYSICIAN STATEMENT I saw and evaluated the patient. I reviewed the resident's note and discussed the case with the resident. I agree with the resident's findings and plan as documented. SUBJECTIVE:c/o pain in foot since being in the OR. pain controlled with medications. denies CP, SOB,fever, chills, N/V/C/D OBJECTIVE: Last Vital Signs Temp Pulse Resp BP Pulse Ox 98.5 F 85 20 154/84 98 11/05/16 15:00 11/05/16 15:00 11/05/16 15:00 11/05/16 15:00 11/05/16 14:45 General NAD, lethargic CV S1 S2 RRR no murmur/rub/gallop Lungs CTA B/L no wheezing/rales/rhonchi Extremities-L foot wrapped in gauze. serosangeous leakage noted on bandage. ASSESSMENT AND PLAN: 56yo M with PMH DM presented to the ER and was admitted for further evalution of their emergent condition 1. 1st toe L foot OM-afebrile. s/p 1st toe amputation 10/30 and debridement today in the OR with noted pus in the wound. on vanco/zosyn. Vanco trough below therapeutic range. no adjustments made. will d/w ID if vanco should be increased. (noted in note that he was aware of level) will need PICC and fdc abx. ID, vasc, and podiatry on board. pain control 2. Microcytic anemia-s/p 3 units PRBC this admission. no signs of active bleeding, minimal noted during procedure. transfuse for Hgb <7. iron supplementation. 3. Acute hypoxic respiratory failure- questionable infiltrate. on broad spectrum abx. now saturating well on RA. 4. Elevated alk phos- U/s with no GB involvmenet. likely due to zosyn however has remained stable. cont current management 5. Elevated BP-likely pain induced. monitor for now. consider initiating agent if remains elevated 6. DM- A1c 12.4. controlled. cont current dosing. iss,bgm, levemir BID. 7. DVT ppx- hep sq.
[2016-11-05] MEDS: INSULIN DETEMIR 100 UNITS/ML MDV SQ SCH (21:28)
[2016-11-05] MEDS: VANCOMYCIN 1,250 MG in DEXTROSE 5%-WATER - 250 ML IVPB SCH (21:29)
[2016-11-06] MEDS: PIPERACILLIN/TAZOB 3.375 GM 50 ML IVPB SCH ×3 (01:00→19:23)
[2016-11-06] MEDS: INSULIN SLIDING SCALE (NOVOLOG) 1 VIAL SQ SCH ×4 (06:06→21:36)
[2016-11-06] MEDS: DOCUSATE SODIUM 100 MG CAPSULE (FP) PO SCH ×3 (06:07→21:30)
[2016-11-06] MEDS: HEPARIN NA (PORCINE) 5,000 UNITS/ML 1ML VIAL SQ SCH ×3 (06:07→21:30)
[2016-11-06] MEDS: INSULIN DETEMIR 100 UNITS/ML MDV SQ SCH ×2 (06:31→21:30)
[2016-11-06] MEDS: ALBUTEROL SO4 2.5/IPRATROPIUM 0.5 INH SOL 3 ML VIAL.NEB. NEB SCH ×3 (06:45→18:21)
[2016-11-06] MEDS: FERROUS SO4 325 MG TABLET (FP) PO SCH ×2 (08:32→18:21)
[2016-11-06 08:42] LABS: MCH 27.4 pg (25.7-33.7); MCHC 33.1 g/dl (32.0-35.9); MEAN PLT VOLUME 6.4 fl (7.5-11.1); PLATELET COUNT 597 K/MM3 (134-434); RDW 15.9 % (11.9-15.9); WHITE BLOOD COUNT 16.5 K/mm3 (4.0-10.0)
[2016-11-06] MEDS: CLOPIDOGREL BISULFATE 75 MG TABLET (FP) PO SCH (09:42)
[2016-11-06] MEDS: LISINOPRIL 20 MG TABLET (FP) PO SCH (09:42)
--- NOTE | 2016-11-06 10:58 | PN ---
Progress Note (short form) - Note Progress Note: Vascular Surgery S/P debridement yesteday. PLantar foot with non viable muscle and tendon All that removed. Will follow foot. Foot had good bleeding. If infection does not resolve, would need bka. TMA not a option. IV antibiotics. Daily saline moist dressings. If wound gets stable, can then place VAC to save foot. Will also need outpt HBO. Will follow
--- NOTE | 2016-11-06 12:20 | PN ---
Teaching Attending Note Name of Resident: Eulogio Wiley ATTENDING PHYSICIAN STATEMENT I saw and evaluated the patient. I reviewed the resident's note and discussed the case with the resident. I agree with the resident's findings and plan as documented. SUBJECTIVE:states pain is worse when dressing is changed. denies Cp, SOB,fever, chills, hematuria, BRBPR or melena OBJECTIVE: Last Vital Signs Temp Pulse Resp BP Pulse Ox 100.1 F H 99 H 20 153/77 98 11/06/16 07:26 11/06/16 07:26 11/06/16 07:26 11/06/16 07:26 11/05/16 21:00 General NAD, lethargic CV S1 S2 RRR no murmur/rub/gallop Lungs CTA B/L no wheezing/rales/rhonchi Extremities-L foot with necrotic tissue on dorsum.plantar of foot with tunneling to dorsum. some white pus drainage from plantar wound. ASSESSMENT AND PLAN: 56yo M with PMH DM presented to the ER and was admitted for further evalution of their emergent condition 1. 1st toe L foot OM-afebrile. s/p 1st toe amputation 10/30 and debridement today in the OR yesterday with necrotic muscle and skin removed. concerned that he may require further amputation. will likely require from wound vac. will cont to monitor leukocytosis if improves, follow vasc surgery for further intervention. will need PICC and fci abx therapy. On Vanco/zosyn. ID, vasc , and podiatry on board. pain control 2. Microcytic anemia-s/p 3 units PRBC this admission. Hgb dropped today, likely post-op bleeding. will transfuse 1 unit PRBC. check post-txn CBC. transfuse for Hgb <7. iron supplementation. 3. Acute hypoxic respiratory failure- questionable infiltrate. on broad spectrum abx. now saturating well on RA. 4. Elevated alk phos- U/s with no GB involvement. likely due to zosyn however has remained stable. cont current management 5. Elevated BP-likely pain induced. monitor for now. consider initiating agent if remains elevated 6. DM- A1c 12.4. controlled. cont current dosing. iss,bgm, levemir BID. 7. DVT ppx- hep sq.
[2016-11-06] MEDS ORDERED: FUROSEMIDE 40 MG/4 ML INJECTABLE VIAL IVPUSH ONE (12:23)
[2016-11-06 13:16] LABS: ANISOCYTOSIS 2+; HYPOCHROMIA 2+; MICROCYTOSIS FEW; POLYCHROMASIA FEW; TARGET CELLS 1+
--- NOTE | 2016-11-06 13:53 | PN ---
Physical Exam: SUBJECTIVE: Patient seen and examined Pt is still complaining of shortness of breath Also complaining fatigue No fever, no chills No dizziness or confusion OBJECTIVE: Vital Signs Period Temp Pulse Resp BP Sys/Lopez Pulse Ox Last 24 Hr 97.0 F-100.1 F 85-99 16-22 117-157/63-88 98-100 GENERAL: The patient is awake, alert, and fully oriented, in no acute distress. HEAD: Normal with no signs of trauma. Elevted JVD, positive hepato juguloreflux LUNGS: bibasilar crackles on auscultation, expiratory wheezes b/l , no accessory muscle use. HEART: Regular rate and rhythm, S1, S2 with systolic and diastolic murmur, no rub or gallop. ABDOMEN: Soft, nontender, nondistended, normoactive bowel sounds, no guarding, no rebound, no hepatosplenomegaly, no masses. EXTREMITIES: 2+ pulses, warm, well-perfused, no edema in upper ext. Lower ext edema, trace in right and 2+ in left NEUROLOGICAL: Normal speech, gait not observed. PSYCH: Normal mood, normal affect. SKIN: Warm, dry, normal turgor, no rashes or lesions noted. s/p left great with first ray amputation. Left foot surgical wound, with pink tissue with tunneling under skin, with purulent yellow drain. Laboratory Results - last 24 hr 11/04/16 11/05/16 11/05/16 12:25 17:45 21:23 WBC RBC Hgb Hct MCV MCHC RDW Plt Count MPV Polychromasia Hypochromic-Microcytic Anisocytosis Microcytosis Target Cells POC Glucometer 160 207 Blood Type O NEGATIVE Antibody Screen Negative Crossmatch See Detail 11/06/16 11/06/16 11/06/16 05:58 07:50 11:56 WBC 16.5 H RBC 2.46 L Hgb 6.8 L* Hct 20.4 L MCV 83.0 MCHC 33.1 RDW 15.9 Plt Count 597 H MPV 6.4 L Polychromasia Few Hypochromic-Microcytic 2+ Anisocytosis 2+ Microcytosis Few Target Cells 1+ POC Glucometer 125 133 Blood Type Antibody Screen Crossmatch Active Medications Generic Name Dose Route Start Last Admin Trade Name Freq PRN Reason Stop Dose Admin Acetaminophen 650 mg 11/05/16 14:11 Tylenol - PO Q4H PRN FEVER OR PAIN Albuterol/Ipratropium 1 amp 11/05/16 18:00 11/06/16 06:45 Duoneb - NEB 1 amp QIDR SANGE[facility]HA Administration Clopidogrel Bisulfate 75 mg 11/06/16 10:00 11/06/16 09:42 Plavix - PO 75 mg DAILY SANGE[facility]HA Administration Docusate Sodium 100 mg 11/05/16 22:00 11/06/16 06:07 Colace - PO 100 mg TID SANGEETHA Administration Ferrous Sulfate 325 mg 11/05/16 17:30 11/06/16 08:32 Feosol - PO 325 mg BIDWM S[facility] Administration Heparin Sodium (Porcine) 5,000 unit 11/05/16 22:00 11/06/16 06:07 Heparin - SQ 5,000 unit TID [facility] Administration Vancomycin HCl 1,250 mg/ 250 mls @ 166.667 mls/hr 11/05/16 22:00 11/05/16 21:29 Dextrose IVPB 166.667 mls/hr DAILY@2200 [facility] Administration Protocol Piperacillin Sod/Tazobactam Sod 50 mls @ 100 mls/hr 11/05/16 18:00 11/06/16 09: 42 Zosyn 3.375gm Ivpb (Pre-Docked) IVPB 100 mls/hr Q8H-IV [facility] Administration Protocol Ibuprofen 600 mg 11/05/16 14:11 11/06/16 09:46 Motrin - PO 600 mg Q6H PRN Administration FEVER Insulin Aspart 1 vial 11/05/16 16:30 11/06/16 12:53 Novolog Vial Sliding Scale - SQ Not Given ACHS [facility] Protocol Insulin Detemir 15 units 11/05/16 22:00 11/05/16 21:28 Levemir Vial SQ 15 units HS [facility] Administration Insulin Detemir 30 units 11/06/16 07:00 11/06/16 06:31 Levemir Vial SQ 30 units AM [facility] Administration Lisinopril 20 mg 11/06/16 10:00 11/06/16 09:42 Prinivil PO 20 mg DAILY [facility] Administration Oxycodone HCl 5 mg 11/06/16 10:20 Roxicodone - PO Q4H PRN PAIN CBC, BMP 11/06/16 07:50 11/05/16 06:30 Microbiology 10/30/16 15:14 Toe - Left Hallux Gram Stain - Final 10/30/16 15:14 Toe - Left Hallux Wound Culture - Final NO GROWTH AFTER 48 HOURS INCUBATION 10/26/16 18:20 Blood - Peripheral Venous Blood Culture - Final NO GROWTH AFTER 5 DAYS INCUBATION 10/24/16 10:56 Foot - Left Plantar Gram Stain - Final 10/24/16 10:56 Foot - Left Plantar Wound Culture - Final Staphylococcus Aureus Enterococcus Faecalis Strep Agalactiae Group B 10/23/16 12:30 Foot - Left Plantar Gram Stain - Final 10/23/16 12:30 Foot - Left Plantar Wound Culture - Final Staphylococcus Aureus Strep Agalactiae Group B Enterococcus Faecalis Diphtheroid/Corynebacterium 11/02/16 10:05 Blood - Peripheral Venous Blood Culture - Preliminary NO GROWTH OBTAINED AFTER 72 HOURS, INCUBATION TO CONTINUE FOR 2 DAYS. 11/02/16 10:05 Blood - Peripheral Venous Blood Culture - Preliminary NO GROWTH OBTAINED AFTER 72 HOURS, INCUBATION TO CONTINUE FOR 2 DAYS. 11/02/16 10:05 Blood - Peripheral Venous Blood Culture - Preliminary NO GROWTH OBTAINED AFTER 48 HOURS, INCUBATION TO CONTINUE FOR 3 DAYS. 11/02/16 10:05 Blood - Peripheral Venous Blood Culture - Preliminary NO GROWTH OBTAINED AFTER 48 HOURS, INCUBATION TO CONTINUE FOR 3 DAYS. Laboratory Tests 11/05/16 06:30 Calcium 8.3 L ASSESSMENT/PLAN: 56 year old male with pmh of uncontrolled diabetes and gangrenous left foot s/p angioplasty on 08/2016 was admitted for Sepsis from osteomyelitis of left great toe, post op day 7. Pt had further debridment yesterday S/P left great with first ray amputation day 7, S/P debridment day 1 no fever in last 48 hours Pain medication Oxycodone 5mg po PRN WBC 16.5 consider ESR and CRP in am Continue Zosyn and Vancomycin per ID day 7 Left great toe culture negative Dr Ponce on case Acute anemia iron deficiency vs anemia of chronic disease vs Sepsis induced hgb6.8 fesol 325mg po TIDWM transfuse 1 unit prbc CBC post transfusion labs in am Acute resp distress rt anemia, pulmonary congestion Pt c/o shortness of breath overnight JVD Pt has b/l crackles in wheezes LAsix 40mg IV once Duoneb inh q6h Monitor CBC keep O2 sat >90% nasal canula PRN Transaminitis with elevated ALP US right upper quadrant showed no dilated CBD, No cholelithiasis transaminitis Likely due to sepsis LFT trending down Uncontrolled Diabetes hgba1c was 11.8 in august, now it is 12.4 blood Glucose more controlled now On Levemir 30 units qAM and Levemir 15 units qhs, Hold levemir in am for surgery and NPO Novolog sliding scale ACHS HTN Lisinopril to 20mg PO daily FEN Fluid: none Electrolytes: no abnormalities Nutrition: diabetic diet Disposition: Pending resolution of sepsis. Visit type - Emergency Visit Emergency Visit: Yes ED Registration Date: 10/23/16 Care time: The patient presented to the Emergency Department on the above date and was hospitalized for further evaluation of their emergent condition. - New Patient This patient is new to me today: Yes Date on this admission: 11/06/16 - Critical Care Critical Care patient: No - Discharge Referral Referred to [facility] Med P.C.: No
--- NOTE | 2016-11-06 14:25 | PN ---
Progress Note (short form) - Note Progress Note: POD#1 pt with minimal pain today. Vital Signs Period Temp Pulse Resp BP Sys/Lopez Pulse Ox Last 24 Hr 97.0 F-100.1 F 85-99 16-22 117-157/63-88 98-98 PE: GEN: appears comfortable Left foot: dressing changed minimal bleeding, wound base clean. wound tracks laterally over metatarsal head under the skin to the 5th toe. Skin overlying this area is is soft eschar. edema to the LLE. No purulent drainage noted, come necrotic tissue in undermined area in skin flap over metatarsal heads. CBC, BMP 05/03/17 07:50 05/02/17 06:30 A/P: s/p Left washout and further debridement Dressing changed with wet to dry today S/w medicine and plan to transfuse the patient PRBC today IV abx S/w Dr. Ponce, will continue to monitor the patient but he may require a left BKA
--- NOTE | 2016-11-06 14:52 | OP ---
DATE OF OPERATION: 11/05/2016 PREOPERATIVE DIAGNOSIS: Left foot abscess/gangrene. POSTOPERATIVE DIAGNOSIS: Left foot abscess/gangrene. PROCEDURE: Excisional debridement of left foot skin, subcutaneous tissue, muscle, tendon. INDICATION: The patient is a 56-year-old male who had abscess in his left foot. A couple days prior he had amputation of the left great toe and the ray, and the wound was left open due to pus. Now he continues to have a white count. White count has only come down to 17, and he still has fevers. It was decided that he would need a washout today. The patient was consented for the procedure, understanding all risks, benefits, and alternatives. DESCRIPTION OF PROCEDURE: He was then taken to the operating room. Once in the operating suite, he was placed on the operating table in supine manner and the area of the left foot was prepped and draped in a sterile surgical manner. We then went ahead and using a number 15-blade excised the skin, subcutaneous tissue, muscle, and nonviable tendons, and they were taken off and sent to Pathology. There was still pus in the wound. Then using a number 15-blade we opened the wound wider along the plantar aspect for about 5 cm. Bovie electrocautery was used to control hemostasis. We found nonviable muscle and tendon which was then removed further using a number 15-blade. Bovie electrocautery was used to control hemostasis. We then took a pulse print shop assistant and irrigated the plantar aspect of the foot and the entire wound until there was no more pus or infection. We then went ahead and packed with saline moist gauze, 4 x 4's, ABD pads, and Kerlix. The patient tolerated the procedure with no complication. Patient transferred to PACU in stable condition. Total blood loss 50 mL. PINO FAITH DO [id number]
--- NOTE | 2016-11-06 15:28 | PN ---
Progress Note, Physician History of Present Illness: patient continues to be febrile still with infection - Current Medication List Current Medications: Active Medications Acetaminophen (Tylenol -) 650 mg PO Q4H PRN PRN Reason: FEVER OR PAIN Albuterol/Ipratropium (Duoneb -) 1 amp NEB QIDR [facility] Last Admin: 11/06/16 12:40 Dose: Not Given Clopidogrel Bisulfate (Plavix -) 75 mg PO DAILY [facility] Last Admin: 11/06/16 09:42 Dose: 75 mg Docusate Sodium (Colace -) 100 mg PO TID [facility] Last Admin: 11/06/16 15:19 Dose: 100 mg Ferrous Sulfate (Feosol -) 325 mg PO BIDWM [facility] Last Admin: 11/06/16 08:32 Dose: 325 mg Heparin Sodium (Porcine) (Heparin -) 5,000 unit SQ TID [facility] Last Admin: 11/06/16 15:18 Dose: 5,000 unit Vancomycin HCl 1,250 mg/ (Dextrose) 250 mls @ 166.667 mls/hr IVPB DAILY@2200 [facility] PRN Reason: Protocol Last Admin: 11/05/16 21:29 Dose: 166.667 mls/hr Piperacillin Sod/Tazobactam Sod (Zosyn 3.375gm Ivpb (Pre-Docked)) 50 mls @ 100 mls/hr IVPB Q8H-IV [facility] PRN Reason: Protocol Last Admin: 11/06/16 09:42 Dose: 100 mls/hr Ibuprofen (Motrin -) 600 mg PO Q6H PRN PRN Reason: FEVER Last Admin: 11/06/16 09:46 Dose: 600 mg Insulin Aspart (Novolog Vial Sliding Scale -) 1 vial SQ ACHS [facility] PRN Reason: Protocol Last Admin: 11/06/16 12:53 Dose: Not Given Insulin Detemir (Levemir Vial) 15 units SQ HS [facility] Last Admin: 11/05/16 21:28 Dose: 15 units Insulin Detemir (Levemir Vial) 30 units SQ AM [facility] Last Admin: 11/06/16 06:31 Dose: 30 units Lisinopril (Prinivil) 20 mg PO DAILY [facility] Last Admin: 11/06/16 09:42 Dose: 20 mg Oxycodone HCl (Roxicodone -) 5 mg PO Q4H PRN PRN Reason: PAIN - Objective Vital Signs: Vital Signs Temperature 98.7 F 11/06/16 13:34 Pulse Rate 91 H 11/06/16 13:34 Respiratory Rate 20 11/06/16 13:34 Blood Pressure 117/63 11/06/16 13:34 O2 Sat by Pulse Oximetry (%) 98 11/05/16 21:00 Constitutional: Yes: Calm, Mild Distress Cardiovascular: Yes: Regular Rate and Rhythm Respiratory: Yes: Regular, CTA Bilaterally Gastrointestinal: Yes: Normal Bowel Sounds, Soft Musculoskeletal: Yes: Other Extremities: Yes: Other Wound/Incision: Yes: Dressing Dry and Intact Neurological: Yes: Alert, Oriented Psychiatric: Yes: Alert Labs: CBC, BMP 11/06/16 07:50 11/05/16 06:30 INR, PTT INR 1.36 (0.82-1.09) H 10/24/16 07:50 Assessment/Plan osteo of the left toe wound infection dm fever leukocytosis wbc trending upward plan fever still low grade continue abx vanco trough close monitoring patient will probably need surgery again
[2016-11-06] MEDS ORDERED: INSULIN (NOVOLOG) ASPART 100 UNITS/ML 10ML VIAL ONE (21:04)
[2016-11-06 21:14] LABS: MCH 28.1 pg (25.7-33.7); MCHC 33.5 g/dl (32.0-35.9); MEAN CELL VOLUME 83.9 fl (80-96); MEAN PLT VOLUME 6.5 fl (7.5-11.1); PLATELET COUNT 591 K/MM3 (134-434); RDW 16.1 % (11.9-15.9)
[2016-11-06] MEDS: VANCOMYCIN 1,250 MG in DEXTROSE 5%-WATER - 250 ML IVPB SCH (21:27)
[2016-11-07] MEDS: ALBUTEROL SO4 2.5/IPRATROPIUM 0.5 INH SOL 3 ML VIAL.NEB. NEB SCH ×4 (00:11→17:57)
[2016-11-07] MEDS: PIPERACILLIN/TAZOB 3.375 GM 50 ML IVPB SCH ×3 (03:24→17:35)
[2016-11-07] MEDS: INSULIN DETEMIR 100 UNITS/ML MDV SQ SCH ×3 (06:07→21:16)
[2016-11-07] MEDS: INSULIN SLIDING SCALE (NOVOLOG) 1 VIAL SQ SCH ×4 (06:07→21:16)
[2016-11-07] MEDS: HEPARIN NA (PORCINE) 5,000 UNITS/ML 1ML VIAL SQ SCH ×3 (06:07→21:14)
[2016-11-07] MEDS: DOCUSATE SODIUM 100 MG CAPSULE (FP) PO SCH ×3 (06:07→21:14)
[2016-11-07] MEDS: FERROUS SO4 325 MG TABLET (FP) PO SCH ×2 (08:47→17:37)
[2016-11-07 09:25] LABS: MCH 27.8 pg (25.7-33.7); MCHC 33.1 g/dl (32.0-35.9); MEAN CELL VOLUME 84.1 fl (80-96); MEAN PLT VOLUME 6.5 fl (7.5-11.1); PLATELET COUNT 602 K/MM3 (134-434); RDW 16.4 % (11.9-15.9); WHITE BLOOD COUNT 16.3 K/mm3 (4.0-10.0)
[2016-11-07] MEDS: CLOPIDOGREL BISULFATE 75 MG TABLET (FP) PO SCH (09:53)
[2016-11-07] MEDS: LISINOPRIL 20 MG TABLET (FP) PO SCH (09:53)
--- NOTE | 2016-11-07 12:54 | PN ---
Physical Exam: SUBJECTIVE: Patient seen and examined Pt is feeling well No more shortness of breath no more fatigue, no weakness, no dizziness low grade fever this morning OBJECTIVE: Vital Signs Period Temp Pulse Resp BP Sys/Lopez Pulse Ox Last 24 Hr 97.8 F-100.4 F 91-96 18-20 117-154/63-79 94-97 GENERAL: The patient is awake, alert, and fully oriented, in no acute distress. HEAD: Normal with no signs of trauma. LUNGS: bibasilar crackles on auscultation , no accessory muscle use. HEART: Regular rate and rhythm, S1, S2 with systolic and diastolic murmur, no rub or gallop. ABDOMEN: Soft, nontender, nondistended, normoactive bowel sounds, no guarding, no rebound, no hepatosplenomegaly, no masses. EXTREMITIES: 2+ pulses, warm, well-perfused, no edema in upper ext. Lower ext edema, trace in right and 2+ in left NEUROLOGICAL: Normal speech, gait not observed. PSYCH: Normal mood, normal affect. SKIN: Warm, dry, normal turgor, no rashes or lesions noted. s/p left great with first ray amputation. Left foot surgical wound covered with gauze dressing with sanguinous discharge Laboratory Results - last 24 hr 11/04/16 11/06/16 11/06/16 12:25 07:50 17:32 WBC RBC Hgb Hct MCV MCHC RDW Plt Count MPV Polychromasia Few Hypochromic-Microcytic 2+ Anisocytosis 2+ Microcytosis Few Target Cells 1+ POC Glucometer 108 Blood Type O NEGATIVE Antibody Screen Negative Crossmatch See Detail 11/06/16 11/06/16 11/07/16 20:00 21:35 06:05 WBC 15.0 H RBC 2.51 L Hgb 7.1 L Hct 21.1 L MCV 83.9 MCHC 33.5 RDW 16.1 H Plt Count 591 H MPV 6.5 L Polychromasia Hypochromic-Microcytic Anisocytosis Microcytosis Target Cells POC Glucometer 164 71 Blood Type Antibody Screen Crossmatch 11/07/16 11/07/16 08:00 11:27 WBC 16.3 H RBC 2.77 L Hgb 7.7 L Hct 23.3 L MCV 84.1 MCHC 33.1 RDW 16.4 H Plt Count 602 H MPV 6.5 L Polychromasia Hypochromic-Microcytic Anisocytosis Microcytosis Target Cells POC Glucometer 92 Blood Type Antibody Screen Crossmatch Active Medications Generic Name Dose Route Start Last Admin Trade Name Freq PRN Reason Stop Dose Admin Acetaminophen 650 mg 11/05/16 14:11 Tylenol - PO Q4H PRN FEVER OR PAIN Albuterol/Ipratropium 1 amp 11/05/16 18:00 11/07/16 11:44 Duoneb - NEB Not Given QIDR [facility] Clopidogrel Bisulfate 75 mg 11/06/16 10:00 11/07/16 09:53 Plavix - PO 75 mg DAILY [facility] Administration Docusate Sodium 100 mg 11/05/16 22:00 11/07/16 06:07 Colace - PO 100 mg TID [facility] Administration Ferrous Sulfate 325 mg 11/05/16 17:30 11/07/16 08:47 Feosol - PO 325 mg BIDWM [facility] Administration Heparin Sodium (Porcine) 5,000 unit 11/05/16 22:00 11/07/16 06:07 Heparin - SQ 5,000 unit TID [facility] Administration Vancomycin HCl 1,250 mg/ 250 mls @ 166.667 mls/hr 11/05/16 22:00 11/06/16 21:27 Dextrose IVPB 166.667 mls/hr DAILY@2200 [facility] Administration Protocol Piperacillin Sod/Tazobactam Sod 50 mls @ 100 mls/hr 11/05/16 18:00 11/07/16 09: 53 Zosyn 3.375gm Ivpb (Pre-Docked) IVPB 100 mls/hr Q8H-IV [facility] Administration Protocol Ibuprofen 600 mg 11/05/16 14:11 11/06/16 09:46 Motrin - PO 600 mg Q6H PRN Administration FEVER Insulin Aspart 1 vial 11/05/16 16:30 11/07/16 11:29 Novolog Vial Sliding Scale - SQ Not Given ACHS [facility] Protocol Insulin Detemir 15 units 11/05/16 22:00 11/06/16 21:30 Levemir Vial SQ 15 units HS [facility] Administration Insulin Detemir 30 units 11/06/16 07:00 11/07/16 06:13 Levemir Vial SQ Not Given AM [facility] Lisinopril 20 mg 11/06/16 10:00 11/07/16 09:53 Prinivil PO 20 mg DAILY [facility] Administration Oxycodone HCl 5 mg 11/06/16 10:20 Roxicodone - PO Q4H PRN PAIN CBC, BMP 11/07/16 08:00 11/05/16 06:30 ASSESSMENT/PLAN: 56 year old male with pmh of uncontrolled diabetes and gangrenous left foot s/p angioplasty on 08/2016 was admitted for Sepsis from osteomyelitis of left great toe, post op day 8. Pt had further debridment yesterday S/P left great with first ray amputation day 8, S/P debridment day 2 Low grade fever 100.4 this morning Pain medication Oxycodone 5mg po PRN WBC 16.3, no improvement consider ESR and CRP in am Continue Zosyn and Vancomycin per ID day 8 Left great toe culture negative Dr Ponce on case Acute anemia iron deficiency vs anemia of chronic disease vs Sepsis induced hgb 7.7 fesol 325mg po TIDWM cbc in pm Acute resp distress rt anemia, pulmonary congestion (resolved) No more sob Duoneb inh q6h Monitor CBC keep O2 sat >90% nasal canula PRN Transaminitis with elevated ALP US right upper quadrant showed no dilated CBD, No cholelithiasis transaminitis Likely due to sepsis LFT trending down Uncontrolled Diabetes hgba1c was 11.8 in August, now it is 12.4 blood Glucose more controlled now On Levemir 30 units qAM and Levemir 15 units qhs, Novolog sliding scale ACHS HTN Lisinopril to 20mg PO daily FEN Fluid: none Electrolytes: no abnormalities Nutrition: diabetic diet Disposition: Pending resolution of sepsis and foot infection. Visit type - Emergency Visit Emergency Visit: Yes ED Registration Date: 10/23/16 Care time: The patient presented to the Emergency Department on the above date and was hospitalized for further evaluation of their emergent condition. - New Patient This patient is new to me today: Yes Date on this admission: 11/07/16 - Critical Care Critical Care patient: No - Discharge Referral Referred to [facility] Med P.C.: No
--- NOTE | 2016-11-07 14:09 | PN ---
Teaching Attending Note Name of Resident: Eulogio Wiley ATTENDING PHYSICIAN STATEMENT I saw and evaluated the patient. I reviewed the resident's note and discussed the case with the resident. I agree with the resident's findings and plan as documented. SUBJECTIVE:states he feels better today. denies CP, SOB,fever, chills, n/V/C/D OBJECTIVE: Last Vital Signs Temp Pulse Resp BP Pulse Ox 99.3 F 92 H 18 149/72 94 L 11/07/16 10:11/07/16 10:11/07/16 10:11/07/16 10:11/07/16 09:00 General NAD, lethargic CV S1 S2 RRR no murmur/rub/gallop Lungs CTA B/L no wheezing/rales/rhonchi Extremities-L foot wrapped gauze with serosangeous drainage ASSESSMENT AND PLAN: 56yo M with PMH DM presented to the ER and was admitted for further evalution of their emergent condition 1. 1st toe L foot OM-Tm 100.4 s/p 1st toe amputation 10/30 concern viability of foot. visualized yesterday with surgical PA. may require BKA. likely waiting to see if leukocytosis improves. check vanco trough today as last was subtherapeutic. on zosyn/vanco. ID, vasc, and podiatry on board. pain control 2. Microcytic anemia-s/p 4 units PRBC this admission. Hgb improved. may drop again with bleeding from foot wound. trend hgb. transfuse for Hgb <7. iron supplementation. 3. Acute hypoxic respiratory failure- questionable infiltrate. on broad spectrum abx. now saturating well on RA. 4. Elevated alk phos- U/s with no GB involvement. likely due to zosyn however has remained stable. cont current management 5. Elevated BP-likely pain induced. controlled 6. DM- A1c 12.4. controlled. cont current dosing. iss,bgm, levemir BID. 7. DVT ppx- hep sq. 8. PT assessment. heel touching allowed. will likely require ASHLIE on discharge
[2016-11-07 15:35] LABS: MCH 27.5 pg (25.7-33.7); MCHC 32.8 g/dl (32.0-35.9); MEAN PLT VOLUME 6.6 fl (7.5-11.1); PLATELET COUNT 608 K/MM3 (134-434); RDW 15.8 % (11.9-15.9); WHITE BLOOD COUNT 16.3 K/mm3 (4.0-10.0)
[2016-11-07] MEDS: ACETAMINOPHEN 325 MG TABLET (FP) PO PRN (17:35)
[2016-11-07] MEDS: oxyCODONE HCL 5 MG TABLET PO PRN (17:36)
--- NOTE | 2016-11-07 18:40 | PN ---
Progress Note (short form) - Note Progress Note: Vascular Surgery Pt seen and examined. If WBC does not get better, might need BKA There is infection in the foot, in the muscles and tendon. Will follow and see if pt improves. Luis Manuel Ponce DO
[2016-11-07] MEDS: VANCOMYCIN 1,250 MG in DEXTROSE 5%-WATER - 250 ML IVPB SCH (21:14)
[2016-11-08] MEDS: ALBUTEROL SO4 2.5/IPRATROPIUM 0.5 INH SOL 3 ML VIAL.NEB. NEB SCH ×5 (00:01→23:08)
[2016-11-08] MEDS: PIPERACILLIN/TAZOB 3.375 GM 50 ML IVPB SCH ×3 (02:17→17:09)
[2016-11-08] MEDS: HEPARIN NA (PORCINE) 5,000 UNITS/ML 1ML VIAL SQ SCH ×3 (06:06→21:24)
[2016-11-08] MEDS: DOCUSATE SODIUM 100 MG CAPSULE (FP) PO SCH ×3 (06:06→21:24)
[2016-11-08] MEDS: oxyCODONE HCL 5 MG TABLET PO PRN (06:09)
[2016-11-08] MEDS: INSULIN SLIDING SCALE (NOVOLOG) 1 VIAL SQ SCH ×4 (06:15→21:26)
[2016-11-08] MEDS: INSULIN DETEMIR 100 UNITS/ML MDV SQ SCH ×2 (06:16→21:26)
[2016-11-08 07:24] LABS: MCH 27.5 pg (25.7-33.7); MCHC 32.8 g/dl (32.0-35.9); MEAN CELL VOLUME 83.9 fl (80-96); MEAN PLT VOLUME 6.4 fl (7.5-11.1); PLATELET COUNT 578 K/MM3 (134-434); RDW 15.9 % (11.9-15.9); WHITE BLOOD COUNT 14.9 K/mm3 (4.0-10.0)
[2016-11-08] MEDS: FERROUS SO4 325 MG TABLET (FP) PO SCH ×2 (07:55→16:58)
[2016-11-08] MEDS: LISINOPRIL 20 MG TABLET (FP) PO SCH (09:01)
[2016-11-08] MEDS: CLOPIDOGREL BISULFATE 75 MG TABLET (FP) PO SCH (09:01)
[2016-11-08] MEDS: VANCOMYCIN 1,250 MG in DEXTROSE 5%-WATER - 250 ML IVPB SCH ×2 (10:26→21:27)
--- NOTE | 2016-11-08 13:31 | PN ---
Teaching Attending Note Name of Resident: Edward Chamberlain ATTENDING PHYSICIAN STATEMENT I saw and evaluated the patient. I reviewed the resident's note and discussed the case with the resident. I agree with the resident's findings and plan as documented. SUBJECTIVE:asymptomatic. OBJECTIVE: Last Vital Signs Temp Pulse Resp BP Pulse Ox 99 F 102 H 18 152/86 96 11/08/16 10:00 11/08/16 10:00 11/08/16 10:00 11/08/16 10:00 11/08/16 09:00 General NAD, more alert today Extremities-L foot wrapped gauze with serosangeous drainage ASSESSMENT AND PLAN: 56yo M with PMH DM presented to the ER and was admitted for further evalution of their emergent condition 1. 1st toe L foot OM-afebrile. only mild improvement in leukocytosis which may indicate need for BKA at this time. however vanco not in therapeutic range, increased vanco to 1250 BID, will check trough prior to 4th dose tomorrow evening. may still require further amputation despite adequate abx coverage. podiatry, vascular, and ID on board. 2. Microcytic anemia-s/p 4 units PRBC this admission. Hgb stable. transfuse for Hgb <7. iron supplementation. 3. Acute hypoxic respiratory failure- questionable infiltrate. on broad spectrum abx. now saturating well on RA. 4. Elevated alk phos- U/s with no GB involvement. likely due to zosyn however has remained stable. cont current management 5. Elevated BP-likely pain induced. controlled 6. DM- A1c 12.4. controlled. cont current dosing. iss,bgm, levemir BID. 7. DVT ppx- hep sq. 8. PT assessment. heel touching allowed. will likely require ASHLIE on discharge
[2016-11-08] MEDS: AMINO ACIDS/PROTEIN HYDROLYS 30 ML LIQUID.PKT PO SCH (16:58)
--- NOTE | 2016-11-08 17:16 | PN ---
Physical Exam: SUBJECTIVE: Patient seen and examined at bedside. He stated that foot pain is under control and no fever or chills overnight. Further denies chest pain, sob, urinary or bowel symptoms. OBJECTIVE: Vital Signs Period Temp Pulse Resp BP Sys/Lopez Pulse Ox Last 24 Hr 98.3 F-99.3 F 93-102 18-22 141-152/78-86 96-96 GENERAL: AAO x 3 not in distress, resting comfortably in bed. EYES: sclera anicteric, conjunctiva clear ENT:oropharynx clear without exudates LUNGS:CTAB HEART: Tachycardic, S1 and S2 present,No murmur ABDOMEN: +bs, soft, non-tender EXTREMITIES: L foot dressing in place, no sign of bloody drainage CBCD WBC 14.9 K/mm3 (4.0-10.0) H 11/08/16 06:15 RBC 2.78 M/mm3 (4.00-5.60) L 11/08/16 06:15 Hgb 7.6 GM/dL (11.7-16.9) L 11/08/16 06:15 Hct 23.3 % (35.4-49) L 11/08/16 06:15 MCV 83.9 fl (80-96) 11/08/16 06:15 MCHC 32.8 g/dl (32.0-35.9) 11/08/16 06:15 RDW 15.9 % (11.9-15.9) 11/08/16 06:15 Plt Count 578 K/MM3 (134-434) H 11/08/16 06:15 MPV 6.4 fl (7.5-11.1) L 11/08/16 06:15 CMP Sodium 140 mmol/L (136-145) 11/05/16 06:30 Potassium 4.2 mmol/L (3.5-5.1) 11/05/16 06:30 Chloride 105 mmol/L (98-107) 11/05/16 06:30 Carbon Dioxide 26 mmol/L (21-32) 11/05/16 06:30 Anion Gap 9 (8-16) 11/05/16 06:30 BUN 16 mg/dL (7-18) 11/05/16 06:30 Creatinine 0.8 mg/dL (0.7-1.3) 11/05/16 06:30 Creat Clearance w eGFR > 60 (>60) 11/04/16 06:15 Calcium 8.3 mg/dL (8.5-10.1) L 11/05/16 06:30 Total Bilirubin 0.4 mg/dL (0.2-1.0) 11/04/16 06:15 AST 25 U/L (15-37) 11/04/16 06:15 ALT 33 U/L (12-78) 11/04/16 06:15 Alkaline Phosphatase 368 U/L (45-117) H 11/04/16 06:15 Total Protein 6.7 g/dl (6.4-8.2) 11/04/16 06:15 Albumin 1.6 g/dl (3.4-5.0) L 11/04/16 06:15 Active Medications Generic Name Dose Route Start Last Admin Trade Name Freq PRN Reason Stop Dose Admin Acetaminophen 650 mg 11/05/16 14:11 11/07/16 17:35 Tylenol - PO 650 mg Q4H PRN Administration FEVER OR PAIN Albuterol/Ipratropium 1 amp 11/05/16 18:00 11/08/16 11:54 Duoneb - NEB 1 amp QIDR [facility] Administration Amino Acids 30 ml 11/08/16 17:30 11/08/16 16:58 Prosource No Carb Liquid Pkt PO 30 ml BID@0800,1730 [facility] Administration Ascorbic Acid 500 mg 11/09/16 10:00 Vitamin C - PO DAILY [facility] Clopidogrel Bisulfate 75 mg 11/06/16 10:00 11/08/16 09:01 Plavix - PO 75 mg DAILY [facility] Administration Docusate Sodium 100 mg 11/05/16 22:00 11/08/16 14:07 Colace - PO 100 mg TID [facility] Administration Ferrous Sulfate 325 mg 11/05/16 17:30 11/08/16 16:58 Feosol - PO 325 mg BIDWM [facility] Administration Heparin Sodium (Porcine) 5,000 unit 11/05/16 22:00 11/08/16 14:07 Heparin - SQ 5,000 unit TID [facility] Administration Piperacillin Sod/Tazobactam Sod 50 mls @ 100 mls/hr 11/05/16 18:00 11/08/16 17: 09 Zosyn 3.375gm Ivpb (Pre-Docked) IVPB 100 mls/hr Q8H-IV [facility] Administration Protocol Vancomycin HCl 1,250 mg/ 250 mls @ 166.667 mls/hr 11/08/16 10:00 11/08/16 10:26 Dextrose IVPB 166.667 mls/hr BID [facility] Administration Insulin Aspart 1 vial 11/05/16 16:30 11/08/16 16:59 Novolog Vial Sliding Scale - SQ Not Given ACHS [facility] Protocol Insulin Detemir 15 units 11/05/16 22:00 11/07/16 21:16 Levemir Vial SQ 15 units HS [facility] Administration Insulin Detemir 30 units 11/06/16 07:00 11/08/16 06:16 Levemir Vial SQ 30 units AM [facility] Administration Lisinopril 20 mg 11/06/16 10:00 11/08/16 09:01 Prinivil PO 20 mg DAILY [facility] Administration Multivitamins/Minerals/Vitamin C 1 tab 11/09/16 10:00 Tab-A-Vit - PO DAILY [facility] Oxycodone HCl 5 mg 11/06/16 10:20 11/08/16 06:09 Roxicodone - PO 5 mg Q4H PRN Administration PAIN ASSESSMENT/PLAN: 56 yo M with h/o uncontrolled DMII admitted for L foot osteomyelitis. Osteomyelitis, L first toe - Afrebile, WBC trending down - Trial of increased vancomycin dose (1.25g) BID * previous vanco trough subtherapeutic * will re-check trough tomorrow evening * re-assess the need of amputation when trough is therapeutic - Cont. vanco day 1 and zosyn day 2 Normocytic anemia - Baseline ~10 - H&H stable s/p transfusion - Cont. Fe supplement - Transfuse if HGB < 7 IDDM - Cont. sliding scale and levemir 15 units BID FEN - IVF not indicated - Normal lytes - Diabetic/Sodium diet + prosource Prophylaxis - DVT: heparin - GI: not indicated Disposition - Cont. to monitor on med-surg Code status - Full Visit type - Emergency Visit Emergency Visit: No - New Patient This patient is new to me today: Yes Date on this admission: 11/09/16 - Critical Care Critical Care patient: No
[2016-11-08] MEDS ORDERED: PT OWN MED DRAWER 7, Y5N ONE (21:08)
[2016-11-09] MEDS: PIPERACILLIN/TAZOB 3.375 GM 50 ML IVPB SCH ×3 (02:42→18:08)
[2016-11-09] MEDS ORDERED: guaiFENesin/D-M SUGAR-FREE/ACLHOL-FREE 118 ML BOTTLE PO PRN (03:49)
[2016-11-09] MEDS: guaiFENesin/D-METHORPHAN HB 10 ML UNIT-DOSE CUPS PO PRN (04:18)
[2016-11-09] MEDS: HEPARIN NA (PORCINE) 5,000 UNITS/ML 1ML VIAL SQ SCH ×3 (06:44→21:48)
[2016-11-09] MEDS: DOCUSATE SODIUM 100 MG CAPSULE (FP) PO SCH ×3 (06:44→21:47)
[2016-11-09] MEDS: INSULIN DETEMIR 100 UNITS/ML MDV SQ SCH ×2 (06:48→21:51)
[2016-11-09] MEDS: INSULIN SLIDING SCALE (NOVOLOG) 1 VIAL SQ SCH ×4 (06:49→22:00)
[2016-11-09] MEDS: ALBUTEROL SO4 2.5/IPRATROPIUM 0.5 INH SOL 3 ML VIAL.NEB. NEB SCH ×4 (06:50→23:14)
[2016-11-09] MEDS: FERROUS SO4 325 MG TABLET (FP) PO SCH ×2 (07:54→18:09)
[2016-11-09] MEDS: AMINO ACIDS/PROTEIN HYDROLYS 30 ML LIQUID.PKT PO SCH ×2 (07:54→18:09)
[2016-11-09 08:33] LABS: MCH 27.4 pg (25.7-33.7); MCHC 32.4 g/dl (32.0-35.9); MEAN CELL VOLUME 84.5 fl (80-96); MEAN PLT VOLUME 6.3 fl (7.5-11.1); PLATELET COUNT 562 K/MM3 (134-434); RDW 16.2 % (11.9-15.9); WHITE BLOOD COUNT 13.9 K/mm3 (4.0-10.0)
[2016-11-09] MEDS ORDERED: PT OWN MED DRAWER 7, Y5N ONE ×2 (10:05→21:07)
[2016-11-09] MEDS: MULTIVITAMINS (DAILY MVI) TABLET (FP) PO SCH (10:22)
[2016-11-09] MEDS: CLOPIDOGREL BISULFATE 75 MG TABLET (FP) PO SCH (10:22)
[2016-11-09] MEDS: POLYETHYLENE GLYCOL 3350 119 GM BTL PO SCH ×2 (10:22→21:50)
[2016-11-09] MEDS: ASCORBIC ACID 500 MG TABLET (FP) PO SCH (10:22)
[2016-11-09] MEDS: LISINOPRIL 20 MG TABLET (FP) PO SCH (10:22)
[2016-11-09] MEDS: VANCOMYCIN 1,250 MG in DEXTROSE 5%-WATER - 250 ML IVPB SCH ×2 (11:30→22:37)
--- NOTE | 2016-11-09 13:14 | PN ---
Progress Note, Physician History of Present Illness: patient doing well was taken to the or still with fevers - Current Medication List Current Medications: Active Medications Acetaminophen (Tylenol -) 650 mg PO Q4H PRN PRN Reason: FEVER OR PAIN Last Admin: 11/07/16 17:35 Dose: 650 mg Albuterol/Ipratropium (Duoneb -) 1 amp NEB QIDR [facility] Last Admin: 11/09/16 11:09 Dose: Not Given Amino Acids (Prosource No Carb Liquid Pkt) 30 ml PO BID@0800,1730 [facility] Last Admin: 11/09/16 07:54 Dose: 30 ml Ascorbic Acid (Vitamin C -) 500 mg PO DAILY [facility] Last Admin: 11/09/16 10:22 Dose: 500 mg Clopidogrel Bisulfate (Plavix -) 75 mg PO DAILY [facility] Last Admin: 11/09/16 10:22 Dose: 75 mg Docusate Sodium (Colace -) 100 mg PO TID [facility] Last Admin: 11/09/16 06:44 Dose: 100 mg Ferrous Sulfate (Feosol -) 325 mg PO BIDWM [facility] Last Admin: 11/09/16 07:54 Dose: 325 mg Guaifenesin (Robitussin Dm -) 5 ml PO Q6H PRN PRN Reason: COUGH Last Admin: 11/09/16 04:18 Dose: 5 ml Heparin Sodium (Porcine) (Heparin -) 5,000 unit SQ TID [facility] Last Admin: 11/09/16 06:44 Dose: 5,000 unit Piperacillin Sod/Tazobactam Sod (Zosyn 3.375gm Ivpb (Pre-Docked)) 50 mls @ 100 mls/hr IVPB Q8H-IV [facility] PRN Reason: Protocol Last Admin: 11/09/16 10:22 Dose: 100 mls/hr Vancomycin HCl 1,250 mg/ (Dextrose) 250 mls @ 166.667 mls/hr IVPB BID [facility] Last Admin: 11/09/16 11:30 Dose: 166.667 mls/hr Insulin Aspart (Novolog Vial Sliding Scale -) 1 vial SQ ACHS [facility] PRN Reason: Protocol Last Admin: 11/09/16 12:14 Dose: 2 units Insulin Detemir (Levemir Vial) 15 units SQ HS [facility] Last Admin: 11/08/16 21:26 Dose: 15 units Insulin Detemir (Levemir Vial) 30 units SQ AM [facility] Last Admin: 11/09/16 06:48 Dose: Not Given Lisinopril (Prinivil) 20 mg PO DAILY [facility] Last Admin: 11/09/16 10:22 Dose: 20 mg Multivitamins/Minerals/Vitamin C (Tab-A-Vit -) 1 tab PO DAILY [facility] Last Admin: 11/09/16 10:22 Dose: 1 tab Oxycodone HCl (Roxicodone -) 5 mg PO Q4H PRN PRN Reason: PAIN Last Admin: 11/08/16 06:09 Dose: 5 mg Polyethylene Glycol (Miralax (For Daily Use) -) 17 gm PO BID [facility] Last Admin: 11/09/16 10:22 Dose: 17 gm - Objective Vital Signs: Vital Signs Temperature 98.9 F 11/09/16 09:32 Pulse Rate 98 H 11/09/16 09:32 Respiratory Rate 18 11/09/16 09:32 Blood Pressure 178/92 11/09/16 09:32 O2 Sat by Pulse Oximetry (%) 91 L 11/09/16 09:33 Constitutional: Yes: No Distress, Calm Cardiovascular: Yes: Regular Rate and Rhythm Respiratory: Yes: Regular, CTA Bilaterally Gastrointestinal: Yes: Normal Bowel Sounds, Soft Musculoskeletal: Yes: Other Extremities: Yes: Other Integumentary: Yes: Other Wound/Incision: Yes: Dressing Dry and Intact Neurological: Yes: Alert, Oriented Psychiatric: Yes: Alert Labs: CBC, BMP 11/09/16 07:30 11/05/16 06:30 INR, PTT INR 1.36 (0.82-1.09) H 10/24/16 07:50 Assessment/Plan osteo of the left toe wound infection dm fever leukocytosis plan continue monitoring rest as per primary and vascular surgery monitor wbc
--- NOTE | 2016-11-09 13:15 | PN ---
Progress Note, Physician History of Present Illness: patient post op again from cleaning of the wound tired no complaints low grade fevers but improving - Current Medication List Current Medications: Active Medications Acetaminophen (Tylenol -) 650 mg PO Q4H PRN PRN Reason: FEVER OR PAIN Last Admin: 11/07/16 17:35 Dose: 650 mg Albuterol/Ipratropium (Duoneb -) 1 amp NEB QIDR [facility] Last Admin: 11/09/16 11:09 Dose: Not Given Amino Acids (Prosource No Carb Liquid Pkt) 30 ml PO BID@0800,1730 [facility] Last Admin: 11/09/16 07:54 Dose: 30 ml Ascorbic Acid (Vitamin C -) 500 mg PO DAILY [facility] Last Admin: 11/09/16 10:22 Dose: 500 mg Clopidogrel Bisulfate (Plavix -) 75 mg PO DAILY [facility] Last Admin: 11/09/16 10:22 Dose: 75 mg Docusate Sodium (Colace -) 100 mg PO TID [facility] Last Admin: 11/09/16 06:44 Dose: 100 mg Ferrous Sulfate (Feosol -) 325 mg PO BIDWM [facility] Last Admin: 11/09/16 07:54 Dose: 325 mg Guaifenesin (Robitussin Dm -) 5 ml PO Q6H PRN PRN Reason: COUGH Last Admin: 11/09/16 04:18 Dose: 5 ml Heparin Sodium (Porcine) (Heparin -) 5,000 unit SQ TID [facility] Last Admin: 11/09/16 06:44 Dose: 5,000 unit Piperacillin Sod/Tazobactam Sod (Zosyn 3.375gm Ivpb (Pre-Docked)) 50 mls @ 100 mls/hr IVPB Q8H-IV [facility] PRN Reason: Protocol Last Admin: 11/09/16 10:22 Dose: 100 mls/hr Vancomycin HCl 1,250 mg/ (Dextrose) 250 mls @ 166.667 mls/hr IVPB BID [facility] Last Admin: 11/09/16 11:30 Dose: 166.667 mls/hr Insulin Aspart (Novolog Vial Sliding Scale -) 1 vial SQ ACHS [facility] PRN Reason: Protocol Last Admin: 11/09/16 12:14 Dose: 2 units Insulin Detemir (Levemir Vial) 15 units SQ HS [facility] Last Admin: 11/08/16 21:26 Dose: 15 units Insulin Detemir (Levemir Vial) 30 units SQ AM [facility] Last Admin: 11/09/16 06:48 Dose: Not Given Lisinopril (Prinivil) 20 mg PO DAILY [facility] Last Admin: 11/09/16 10:22 Dose: 20 mg Multivitamins/Minerals/Vitamin C (Tab-A-Vit -) 1 tab PO DAILY [facility] Last Admin: 11/09/16 10:22 Dose: 1 tab Oxycodone HCl (Roxicodone -) 5 mg PO Q4H PRN PRN Reason: PAIN Last Admin: 11/08/16 06:09 Dose: 5 mg Polyethylene Glycol (Miralax (For Daily Use) -) 17 gm PO BID [facility] Last Admin: 11/09/16 10:22 Dose: 17 gm - Objective Vital Signs: Vital Signs Temperature 98.9 F 11/09/16 09:32 Pulse Rate 98 H 11/09/16 09:32 Respiratory Rate 18 11/09/16 09:32 Blood Pressure 178/92 11/09/16 09:32 O2 Sat by Pulse Oximetry (%) 91 L 11/09/16 09:33 Constitutional: Yes: No Distress, Calm Cardiovascular: Yes: Regular Rate and Rhythm Respiratory: Yes: Regular, CTA Bilaterally Gastrointestinal: Yes: Normal Bowel Sounds, Soft Musculoskeletal: Yes: Other Extremities: Yes: Other Wound/Incision: Yes: Dressing Dry and Intact, Other Psychiatric: Yes: Alert Labs: CBC, BMP 11/09/16 07:30 11/05/16 06:30 INR, PTT INR 1.36 (0.82-1.09) H 10/24/16 07:50 Assessment/Plan osteo of the left toe wound infection dm fever leukocytosis plan continue monitoring rest as per primary and vascular surgery vanco trough noted vanco dose increased
--- NOTE | 2016-11-09 13:17 | PN ---
Progress Note, Physician History of Present Illness: stable doing well still with very low grade temp - Current Medication List Current Medications: Active Medications Acetaminophen (Tylenol -) 650 mg PO Q4H PRN PRN Reason: FEVER OR PAIN Last Admin: 11/07/16 17:35 Dose: 650 mg Albuterol/Ipratropium (Duoneb -) 1 amp NEB QIDR [facility] Last Admin: 11/09/16 11:09 Dose: Not Given Amino Acids (Prosource No Carb Liquid Pkt) 30 ml PO BID@0800,1730 [facility] Last Admin: 11/09/16 07:54 Dose: 30 ml Ascorbic Acid (Vitamin C -) 500 mg PO DAILY [facility] Last Admin: 11/09/16 10:22 Dose: 500 mg Clopidogrel Bisulfate (Plavix -) 75 mg PO DAILY [facility] Last Admin: 11/09/16 10:22 Dose: 75 mg Docusate Sodium (Colace -) 100 mg PO TID [facility] Last Admin: 11/09/16 06:44 Dose: 100 mg Ferrous Sulfate (Feosol -) 325 mg PO BIDWM [facility] Last Admin: 11/09/16 07:54 Dose: 325 mg Guaifenesin (Robitussin Dm -) 5 ml PO Q6H PRN PRN Reason: COUGH Last Admin: 11/09/16 04:18 Dose: 5 ml Heparin Sodium (Porcine) (Heparin -) 5,000 unit SQ TID [facility] Last Admin: 11/09/16 06:44 Dose: 5,000 unit Piperacillin Sod/Tazobactam Sod (Zosyn 3.375gm Ivpb (Pre-Docked)) 50 mls @ 100 mls/hr IVPB Q8H-IV [facility] PRN Reason: Protocol Last Admin: 11/09/16 10:22 Dose: 100 mls/hr Vancomycin HCl 1,250 mg/ (Dextrose) 250 mls @ 166.667 mls/hr IVPB BID [facility] Last Admin: 11/09/16 11:30 Dose: 166.667 mls/hr Insulin Aspart (Novolog Vial Sliding Scale -) 1 vial SQ ACHS [facility] PRN Reason: Protocol Last Admin: 11/09/16 12:14 Dose: 2 units Insulin Detemir (Levemir Vial) 15 units SQ HS [facility] Last Admin: 11/08/16 21:26 Dose: 15 units Insulin Detemir (Levemir Vial) 30 units SQ AM [facility] Last Admin: 11/09/16 06:48 Dose: Not Given Lisinopril (Prinivil) 20 mg PO DAILY [facility] Last Admin: 11/09/16 10:22 Dose: 20 mg Multivitamins/Minerals/Vitamin C (Tab-A-Vit -) 1 tab PO DAILY [facility] Last Admin: 11/09/16 10:22 Dose: 1 tab Oxycodone HCl (Roxicodone -) 5 mg PO Q4H PRN PRN Reason: PAIN Last Admin: 11/08/16 06:09 Dose: 5 mg Polyethylene Glycol (Miralax (For Daily Use) -) 17 gm PO BID [facility] Last Admin: 11/09/16 10:22 Dose: 17 gm - Objective Vital Signs: Vital Signs Temperature 98.9 F 11/09/16 09:32 Pulse Rate 98 H 11/09/16 09:32 Respiratory Rate 18 11/09/16 09:32 Blood Pressure 178/92 11/09/16 09:32 O2 Sat by Pulse Oximetry (%) 91 L 11/09/16 09:33 Constitutional: Yes: No Distress, Calm Cardiovascular: Yes: Regular Rate and Rhythm Respiratory: Yes: Regular, CTA Bilaterally Gastrointestinal: Yes: Normal Bowel Sounds, Soft Musculoskeletal: Yes: Other Extremities: Yes: Other Wound/Incision: Yes: Dressing Dry and Intact Neurological: Yes: Alert, Oriented Psychiatric: Yes: Alert Labs: CBC, BMP 11/09/16 07:30 11/05/16 06:30 INR, PTT INR 1.36 (0.82-1.09) H 10/24/16 07:50 Assessment/Plan osteo of the left toe wound infection dm fever leukocytosis plan continue monitoring ct abx wbc marginally lower rest as per surgery if wbc doesn not normalize will ahve to be retaken for looking at the wound
--- NOTE | 2016-11-09 14:31 | PN ---
Progress Note (short form) - Note Progress Note: currently asymptomatic. states he has no pain in his foot. denies CP, SOB,fever, chills, N/V/C/D Current Medications Generic Name Dose Route Start Last Admin Trade Name Freq PRN Reason Stop Dose Admin Acetaminophen 650 mg 11/05/16 14:11 11/07/16 17:35 Tylenol - PO 650 mg Q4H PRN Administration FEVER OR PAIN Albuterol/Ipratropium 1 amp 11/05/16 18:00 11/09/16 11:09 Duoneb - NEB Not Given QIDR [facility] Amino Acids 30 ml 11/08/16 17:30 11/09/16 07:54 Prosource No Carb Liquid Pkt PO 30 ml BID@0800,1730 [facility] Administration Ascorbic Acid 500 mg 11/09/16 10:00 11/09/16 10:22 Vitamin C - PO 500 mg DAILY [facility] Administration Clopidogrel Bisulfate 75 mg 11/06/16 10:00 11/09/16 10:22 Plavix - PO 75 mg DAILY [facility] Administration Docusate Sodium 100 mg 11/05/16 22:00 11/09/16 06:44 Colace - PO 100 mg TID [facility] Administration Ferrous Sulfate 325 mg 11/05/16 17:30 11/09/16 07:54 Feosol - PO 325 mg BIDWM [facility] Administration Guaifenesin 5 ml 11/09/16 04:15 11/09/16 04:18 Robitussin Dm - PO 5 ml Q6H PRN Administration COUGH Heparin Sodium (Porcine) 5,000 unit 11/05/16 22:00 11/09/16 06:44 Heparin - SQ 5,000 unit TID [facility] Administration Piperacillin Sod/Tazobactam Sod 50 mls @ 100 mls/hr 11/05/16 18:00 11/09/16 10: 22 Zosyn 3.375gm Ivpb (Pre-Docked) IVPB 100 mls/hr Q8H-IV [facility] Administration Protocol Vancomycin HCl 1,250 mg/ 250 mls @ 166.667 mls/hr 11/08/16 10:00 11/09/16 11:30 Dextrose IVPB 166.667 mls/hr BID [facility] Administration Insulin Aspart 1 vial 11/05/16 16:30 11/09/16 12:14 Novolog Vial Sliding Scale - SQ 2 units ACHS [facility] Administration Protocol Insulin Detemir 15 units 11/05/16 22:00 11/08/16 21:26 Levemir Vial SQ 15 units HS [facility] Administration Insulin Detemir 30 units 11/06/16 07:00 11/09/16 06:48 Levemir Vial SQ Not Given AM [facility] Lisinopril 20 mg 11/06/16 10:00 11/09/16 10:22 Prinivil PO 20 mg DAILY [facility] Administration Multivitamins/Minerals/Vitamin C 1 tab 11/09/16 10:00 11/09/16 10:22 Tab-A-Vit - PO 1 tab DAILY [facility] Administration Oxycodone HCl 5 mg 11/06/16 10:20 11/08/16 06:09 Roxicodone - PO 5 mg Q4H PRN Administration PAIN Polyethylene Glycol 17 gm 11/09/16 10:15 11/09/16 10:22 Miralax (For Daily Use) - PO 17 gm BID [facility] Administration Last Vital Signs Temp Pulse Resp BP Pulse Ox 98.9 F 98 H 18 178/92 91 L 11/09/16 09:32 11/09/16 09:32 11/09/16 09:32 11/09/16 09:32 11/09/16 09:33 General NAD, Extremities-L foot wrapped gauze with serosangeous drainage ASSESSMENT AND PLAN: 56yo M with PMH DM presented to the ER and was admitted for further evalution of their emergent condition 1. 1st toe L foot OM-afebrile. mild trend down in leukocytes. vanco dose adjusted yesterday. will check vanco trough prior to 4th dose tonight. on zosyn. if leukocytosis continues to improve may be able to delay BKA, however high suspicion for failure and will eventually require BKA. if leukocytes doesnt improve will need on this admission. explained to pt. who verbalized understanding. podiatry, vascular, and ID on board. 2. Microcytic anemia-s/p 4 units PRBC this admission. Hgb stable. transfuse for Hgb <7. iron supplementation. 3. Elevated BP-remains elevated. will start low dose norvasc 4. DM- A1c 12.4. controlled. cont current dosing. iss,bgm, levemir BID. 5. DVT ppx- hep sq. 6. PT assessment. heel touching allowed. will likely require ASHLIE on discharge Visit type - Emergency Visit Emergency Visit: Yes ED Registration Date: 10/23/16 Care time: The patient presented to the Emergency Department on the above date and was hospitalized for further evaluation of their emergent condition. - New Patient This patient is new to me today: No - Critical Care Critical Care patient: No - Discharge Referral Referred to [facility] Med [facility].C.: No
[2016-11-09] MEDS: amLODIPine BESYLATE 2.5 MG TABLET (FP) PO SCH (14:40)
[2016-11-09] MEDS: oxyCODONE HCL 5 MG TABLET PO PRN (14:42)
[2016-11-09] MEDS ORDERED: INSULIN (NOVOLOG) ASPART 100 UNITS/ML 10ML VIAL ONE (21:08)
[2016-11-09] MEDS: ACETAMINOPHEN 325 MG TABLET (FP) PO PRN (21:47)
[2016-11-10] MEDS: PIPERACILLIN/TAZOB 3.375 GM 50 ML IVPB SCH ×3 (03:01→17:41)
[2016-11-10] MEDS: DOCUSATE SODIUM 100 MG CAPSULE (FP) PO SCH ×3 (06:14→21:42)
[2016-11-10] MEDS: INSULIN SLIDING SCALE (NOVOLOG) 1 VIAL SQ SCH ×4 (06:15→21:42)
[2016-11-10] MEDS: INSULIN DETEMIR 100 UNITS/ML MDV SQ SCH ×2 (06:15→21:43)
[2016-11-10] MEDS: HEPARIN NA (PORCINE) 5,000 UNITS/ML 1ML VIAL SQ SCH ×3 (06:26→21:42)
[2016-11-10] MEDS: ALBUTEROL SO4 2.5/IPRATROPIUM 0.5 INH SOL 3 ML VIAL.NEB. NEB SCH ×4 (07:12→23:53)
[2016-11-10 07:53] LABS: BASOPHIL 0.8 % (0-2.0); EOSINOPHIL 1.5 % (0-4.5); MCH 27.8 pg (25.7-33.7); MCHC 32.8 g/dl (32.0-35.9); MEAN CELL VOLUME 84.7 fl (80-96); MEAN PLT VOLUME 6.3 fl (7.5-11.1); NEUTROPHILS 77.3 % (42.8-82.8); PLATELET COUNT 527 K/MM3 (134-434); WHITE BLOOD COUNT 8.9 K/mm3 (4.0-10.0)
[2016-11-10] MEDS ORDERED: INSULIN DETEMIR 100 UNITS/ML MDV SQ ONE (08:00)
[2016-11-10] MEDS ORDERED: INSULIN (NOVOLOG) ASPART 100 UNITS/ML 10ML VIAL ONE ×3 (08:00→21:38)
[2016-11-10] MEDS: AMINO ACIDS/PROTEIN HYDROLYS 30 ML LIQUID.PKT PO SCH ×2 (08:57→17:40)
[2016-11-10] MEDS: FERROUS SO4 325 MG TABLET (FP) PO SCH ×2 (08:57→17:41)
[2016-11-10] MEDS ORDERED: PT OWN MED DRAWER 7, Y5N ONE (09:20)
[2016-11-10] MEDS: CLOPIDOGREL BISULFATE 75 MG TABLET (FP) PO SCH (09:23)
[2016-11-10] MEDS: ASCORBIC ACID 500 MG TABLET (FP) PO SCH (09:23)
[2016-11-10] MEDS: LISINOPRIL 20 MG TABLET (FP) PO SCH (09:23)
[2016-11-10] MEDS: MULTIVITAMINS (DAILY MVI) TABLET (FP) PO SCH (09:23)
[2016-11-10] MEDS: amLODIPine BESYLATE 2.5 MG TABLET (FP) PO SCH (09:23)
[2016-11-10] MEDS: POLYETHYLENE GLYCOL 3350 119 GM BTL PO SCH ×2 (09:24→21:43)
[2016-11-10] MEDS: VANCOMYCIN 1,250 MG in DEXTROSE 5%-WATER - 250 ML IVPB SCH (09:30)
--- NOTE | 2016-11-10 10:40 | PN ---
Physical Exam: SUBJECTIVE: Patient seen and examined at bedside. He stated that foot pain is bothering him in that every evening he'd have throbbing pain and it's getting worse. Denies chest pain, sob, urinary or bowel symptoms. OBJECTIVE: Vital Signs Period Temp Pulse Resp BP Sys/Lopez Pulse Ox Last 24 Hr 97.8 F-99.9 F 99-104 18-24 152-167/65-97 95 GENERAL: AAO x 3 not in distress EYES: sclera anicteric, conjunctiva clear ENT:oropharynx clear without exudates LUNGS: CTAB HEART: Tachycardic, S1 and S2 present,No murmur ABDOMEN: +bs, soft, non-tender EXTREMITIES: L foot dressing in place, no sign of bloody drainage CBCD WBC 8.9 K/mm3 (4.0-10.0) D 11/10/16 06:20 RBC 2.87 M/mm3 (4.00-5.60) L 11/10/16 06:20 Hgb 8.0 GM/dL (11.7-16.9) L 11/10/16 06:20 Hct 24.3 % (35.4-49) L 11/10/16 06:20 MCV 84.7 fl (80-96) 11/10/16 06:20 MCHC 32.8 g/dl (32.0-35.9) 11/10/16 06:20 RDW 16.0 % (11.9-15.9) H 11/10/16 06:20 Plt Count 527 K/MM3 (134-434) H 11/10/16 06:20 MPV 6.3 fl (7.5-11.1) L 11/10/16 06:20 Active Medications Generic Name Dose Route Start Last Admin Trade Name Freq PRN Reason Stop Dose Admin Acetaminophen 650 mg 11/05/16 14:11 11/09/16 21:47 Tylenol - PO 650 mg Q4H PRN Administration FEVER OR PAIN Albuterol/Ipratropium 1 amp 11/05/16 18:00 11/10/16 07:12 Duoneb - NEB 1 amp QIDR [facility] Administration Amino Acids 30 ml 11/08/16 17:30 11/10/16 08:57 Prosource No Carb Liquid Pkt PO 30 ml BID@0800,1730 [facility] Administration Amlodipine Besylate 5 mg 11/10/16 10:26 Norvasc - PO DAILY [facility] Ascorbic Acid 500 mg 11/09/16 10:00 11/10/16 09:23 Vitamin C - PO 500 mg DAILY [facility] Administration Clopidogrel Bisulfate 75 mg 11/06/16 10:00 11/10/16 09:23 Plavix - PO 75 mg DAILY [facility] Administration Docusate Sodium 100 mg 11/05/16 22:00 11/10/16 06:14 Colace - PO Not Given TID [facility] Ferrous Sulfate 325 mg 11/05/16 17:30 11/10/16 08:57 Feosol - PO 325 mg BIDWM [facility] Administration Guaifenesin 5 ml 11/09/16 04:15 11/09/16 04:18 Robitussin Dm - PO 5 ml Q6H PRN Administration COUGH Heparin Sodium (Porcine) 5,000 unit 11/05/16 22:00 11/10/16 06:26 Heparin - SQ 5,000 unit TID [facility] Administration Piperacillin Sod/Tazobactam Sod 50 mls @ 100 mls/hr 11/05/16 18:00 11/10/16 09: 24 Zosyn 3.375gm Ivpb (Pre-Docked) IVPB 100 mls/hr Q8H-IV [facility] Administration Protocol Vancomycin HCl 1,500 mg/ 250 mls @ 166.667 mls/hr 11/10/16 10:24 Dextrose IVPB BID [facility] Insulin Aspart 1 vial 11/05/16 16:30 11/10/16 06:15 Novolog Vial Sliding Scale - SQ Not Given ACHS [facility] Protocol Insulin Detemir 15 units 11/05/16 22:00 11/09/16 21:51 Levemir Vial SQ 15 units HS [facility] Administration Insulin Detemir 30 units 11/06/16 07:00 11/10/16 06:15 Levemir Vial SQ Not Given AM [facility] Lisinopril 20 mg 11/06/16 10:00 11/10/16 09:23 Prinivil PO 20 mg DAILY [facility] Administration Multivitamins/Minerals/Vitamin C 1 tab 11/09/16 10:00 11/10/16 09:23 Tab-A-Vit - PO 1 tab DAILY [facility] Administration Oxycodone HCl 5 mg 11/06/16 10:20 11/09/16 14:42 Roxicodone - PO 5 mg Q4H PRN Administration PAIN Polyethylene Glycol 17 gm 11/09/16 10:15 11/10/16 09:24 Miralax (For Daily Use) - PO 17 gm BID [facility] Administration ASSESSMENT/PLAN: 56 yo M with h/o uncontrolled DMII admitted for L foot osteomyelitis. Osteomyelitis, L first toe - Afrebile, WBC normal - Cont. vanco day 3 and zosyn day 4 - Vanco trough remains subtherapeutic * increased vancomycin dose 1.25g BID to 1.5g BID * will re-check trough tomorrow evening * likely defer amputation Normocytic anemia - Baseline ~10 - H&H stable s/p transfusion - Cont. Fe supplement - Transfuse if HGB < 7 IDDM - Cont. sliding scale and levemir 15/30 units BID HTN - Started norvasc 5mg daily FEN - IVF not indicated - Normal lytes - Diabetic/Sodium diet + prosource Prophylaxis - DVT: heparin - GI: not indicated Disposition - May plan discharge once vanco therapeutic, for now cont. to monitor on med- surg Code status - Full Visit type - Emergency Visit Emergency Visit: No - New Patient This patient is new to me today: No - Critical Care Critical Care patient: No
--- NOTE | 2016-11-10 12:03 | PN ---
Teaching Attending Note Name of Resident: Edwadr Chamberlain ATTENDING PHYSICIAN STATEMENT I saw and evaluated the patient. I reviewed the resident's note and discussed the case with the resident. I agree with the resident's findings and plan as documented. SUBJECTIVE:currently asymptomatic. denies CP, SOB,fever, chills, N/V/C/D OBJECTIVE: Last Vital Signs Temp Pulse Resp BP Pulse Ox 97.8 F 103 H 24 160/97 95 11/10/16 08:53 11/10/16 09:22 11/10/16 09:22 11/10/16 09:22 11/09/16 21:00 General NAD, Extremities-L foot wrapped gauze with serosangeous drainage ASSESSMENT AND PLAN: 56yo M with PMH DM presented to the ER and was admitted for further evalution of their emergent condition 1. 1st toe L foot OM-afebrile. leukocytosis resolved. vanco level improved but below goal range (15-20). will increase vanco to 1500 mg BID. check level tomorrow before 4th dose. on zosyn. may be able to delay amputation at this time with resolved leukocytosis. defer to vascular and their plan. will need PICC line for 6-8weeks abx. (completed 18 days here). podiatry, vascular, and ID on board. 2. Microcytic anemia-s/p 4 units PRBC this admission. Hgb stable. transfuse for Hgb <7. iron supplementation. 3. HTN-remains elevated. increase norvasc. monitor 4. DM- A1c 12.4. hypogylcemic this AM and lantus AM dose was held. decrease PM dose to 12 units and AM dose to 25 units. monitor 5. DVT ppx- hep sq. 6. PT assessment. heel touching allowed. will likely require ASHLIE on discharge
[2016-11-10] MEDS: VANCOMYCIN 1,500 MG in DEXTROSE 5%-WATER - 500 ML IVPB SCH ×2 (12:58→23:27)
[2016-11-10] MEDS ORDERED: amLODIPine BESYLATE 2.5 MG TABLET (FP) PO ONE (14:01)
[2016-11-11] MEDS ORDERED: ALBUTEROL SO4 0.083% IH SOL 2.5 MG/3 ML VIAL.NEB. NEB ONE (00:07)
[2016-11-11] MEDS ORDERED: FUROSEMIDE 40 MG/4 ML INJECTABLE VIAL IVPUSH ONE (00:08)
[2016-11-11] MEDS ORDERED: amLODIPine BESYLATE 5 MG TABLET (FP) PO ONE (00:16)
[2016-11-11] MEDS: PIPERACILLIN/TAZOB 3.375 GM 50 ML IVPB SCH ×3 (02:28→17:17)
[2016-11-11] MEDS: DOCUSATE SODIUM 100 MG CAPSULE (FP) PO SCH ×3 (05:17→23:24)
[2016-11-11] MEDS: HEPARIN NA (PORCINE) 5,000 UNITS/ML 1ML VIAL SQ SCH ×3 (05:17→23:24)
[2016-11-11] MEDS: INSULIN SLIDING SCALE (NOVOLOG) 1 VIAL SQ SCH ×4 (06:06→23:25)
[2016-11-11] MEDS: INSULIN DETEMIR 100 UNITS/ML MDV SQ SCH ×2 (06:14→23:23)
[2016-11-11] MEDS: ALBUTEROL SO4 2.5/IPRATROPIUM 0.5 INH SOL 3 ML VIAL.NEB. NEB SCH ×3 (06:41→16:40)
[2016-11-11] MEDS: FERROUS SO4 325 MG TABLET (FP) PO SCH ×2 (08:34→17:17)
[2016-11-11] MEDS: AMINO ACIDS/PROTEIN HYDROLYS 30 ML LIQUID.PKT PO SCH ×2 (08:35→17:17)
[2016-11-11] MEDS: ACETAMINOPHEN 325 MG TABLET (FP) PO PRN (08:36)
[2016-11-11 08:41] LABS: MCH 28.2 pg (25.7-33.7); MCHC 33.4 g/dl (32.0-35.9); MEAN CELL VOLUME 84.4 fl (80-96); MEAN PLT VOLUME 6.2 fl (7.5-11.1); PLATELET COUNT 536 K/MM3 (134-434)
[2016-11-11] MEDS ORDERED: PT OWN MED DRAWER 7, Y5N ONE (08:47)
[2016-11-11] MEDS: amLODIPine BESYLATE 5 MG TABLET (FP) PO SCH ×2 (08:50→09:12)
[2016-11-11] MEDS: LISINOPRIL 20 MG TABLET (FP) PO SCH ×2 (08:50→09:12)
[2016-11-11] MEDS: ASCORBIC ACID 500 MG TABLET (FP) PO SCH (09:11)
[2016-11-11] MEDS: POLYETHYLENE GLYCOL 3350 119 GM BTL PO SCH ×2 (09:11→23:24)
[2016-11-11] MEDS: MULTIVITAMINS (DAILY MVI) TABLET (FP) PO SCH (09:11)
[2016-11-11] MEDS: CLOPIDOGREL BISULFATE 75 MG TABLET (FP) PO SCH (09:11)
[2016-11-11] MEDS: VANCOMYCIN 1,500 MG in DEXTROSE 5%-WATER - 500 ML IVPB SCH ×2 (10:00→23:26)
[2016-11-11] MEDS: ALBUTEROL SO4 2.5/IPRATROPIUM 0.5 INH SOL 3 ML VIAL.NEB. NEB PRN (10:10)
[2016-11-11 10:48] LABS: ALBUMIN 1.8 g/dl (3.4-5.0); ALK PHOS 215 U/L (45-117); ANION GAP 8 (8-16); BILIRUBIN,TOTAL 0.3 mg/dL (0.2-1.0); CALCIUM 8.4 mg/dL (8.5-10.1); CO2 30 mmol/L (21-32); COCKROFT - GAULT 132.86; CREATININE 0.8 mg/dL (0.7-1.3); GLUCOSE,RANDOM 107 mg/dL (74-106); SGOT/AST 16 U/L (15-37); SGPT/ALT 19 U/L (12-78)
[2016-11-11 10:55] LABS: ARTERIAL BLD GAS O2 SATURATION 97.3 % (90-98.9); ARTERIAL BLOOD GAS BASE EXCESS 6.6 meq/l (-2-2); ARTERIAL BLOOD GAS HCO3 31.1 meq/L (22-26); ARTERIAL BLOOD GAS pH 7.43 (7.35-7.45)
[2016-11-11 10:57] LABS: ALLENS TEST POSITIVE; ART PUNCT SITE RIGHT BRACHIAL; ON ANTICOAG? NASAL O2; PT. ON O2? YES; TYPE OF O2 2L
--- NOTE | 2016-11-11 12:43 | PN ---
Teaching Attending Note Name of Resident: Edward Chamberlain ATTENDING PHYSICIAN STATEMENT I saw and evaluated the patient. I reviewed the resident's note and discussed the case with the resident. I agree with the resident's findings and plan as documented. SUBJECTIVE:states he is feeling "blessed" denies any complaints however noted to be tachypnic with accessory muscle use. figideting with blanket not making eye contact OBJECTIVE: Last Vital Signs Temp Pulse Resp BP Pulse Ox 98.4 F 105 H 20 158/83 87 L 11/11/16 09:22 11/11/16 10:00 11/11/16 10:00 11/11/16 10:00 11/10/16 11:00 General tachypnic with accessory muscle use CV s1 S2 tachycardic Lungs rales throughout poor inspiratory effort abdomen soft NT/ND extremities L foot minimal white drainage from superior aspect of wound. good granulation tissue. ASSESSMENT AND PLAN: 56yo M with PMH DM presented to the ER and was admitted for further evalution of their emergent condition 1. 1st toe L foot OM-afebrile. leukocytosis resolved. vanco dose increased yesterday, check trough tonight prior to 4th dose. likely responding to abx well at this point. but high suspicion that will likely require BKA. 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 on vanco/zosyn.podiatry, vascular, and ID on board. 2. Acute encephalopathy- no hypoglycemia noted stat ABG to assess for CO2 retention, check chemistries evaluate BUN, possible development of ARF while being here. if negative will obtain CT head 3. Acute hypoxic respiratory failure- hemodynamically stable. check dopplers to r/o dvt. lasix 40mg IVP for volume overload on exam. 2. Microcytic anemia-s/p 4 units PRBC this admission. Hgb stable. transfuse for Hgb <7. iron supplementation. 3. HTN-improved. cont current management 4. DM- A1c 12.4. improved. dose adjusted yesterday as hypogylcemic this AM, now improved. cont to monitor. 5. DVT ppx- hep sq.
--- NOTE | 2016-11-11 14:38 | PN ---
Physical Exam: SUBJECTIVE: Patient seen and examined at bedside. He stated that foot pain still persists but he did not ask for any pain medication. Denies chest pain, sob, urinary or bowel symptoms. OBJECTIVE: Vital Signs Period Temp Pulse Resp BP Sys/Lopez Pulse Ox Last 24 Hr 97.8 F-98.8 F 100-108 20-24 155-183/83-103 97-97 GENERAL: AAO x 3, lethargic, unable to speak in full sentences (likely baseline ) in mild respiratory distress EYES: sclera anicteric, conjunctiva clear ENT:oropharynx clear without exudates LUNGS: bilateral rales and rhonchi HEART: Tachycardic, S1 and S2 present,No murmur ABDOMEN: +bs, soft, non-tender EXTREMITIES: L foot dressing not in place (ripped off by patient) ABG Results ABG pH 7.43 (7.35-7.45) 11/11/16 10:52 ABG pCO2 at Pt Temp 47.2 mmHg (35-45) H 11/11/16 10:52 ABG pO2 at Pt Temp 85.0 mmHg (80-100) 11/11/16 10:52 ABG HCO3 31.1 meq/L (22-26) H 11/11/16 10:52 ABG O2 Sat (Measured) 97.3 % (90-98.9) 11/11/16 10:52 ABG O2 Content 10.1 % vol (15-22) L 11/11/16 10:52 ABG Base Excess 6.6 meq/l (-2-2) H 11/11/16 10:52 CBCD WBC 10.0 K/mm3 (4.0-10.0) 11/11/16 07:50 RBC 2.85 M/mm3 (4.00-5.60) L 11/11/16 07:50 Hgb 8.0 GM/dL (11.7-16.9) L 11/11/16 07:50 Hct 24.0 % (35.4-49) L 11/11/16 07:50 MCV 84.4 fl (80-96) 11/11/16 07:50 MCHC 33.4 g/dl (32.0-35.9) 11/11/16 07:50 RDW 16.0 % (11.9-15.9) H 11/11/16 07:50 Plt Count 536 K/MM3 (134-434) H 11/11/16 07:50 MPV 6.2 fl (7.5-11.1) L 11/11/16 07:50 CMP Sodium 141 mmol/L (136-145) 11/11/16 10:31 Potassium 3.8 mmol/L (3.5-5.1) 11/11/16 10:31 Chloride 103 mmol/L (98-107) 11/11/16 10:31 Carbon Dioxide 30 mmol/L (21-32) 11/11/16 10:31 Anion Gap 8 (8-16) 11/11/16 10:31 BUN 14 mg/dL (7-18) 11/11/16 10:31 Creatinine 0.8 mg/dL (0.7-1.3) 11/11/16 10:31 Creat Clearance w eGFR > 60 (>60) 11/11/16 10:31 Calcium 8.4 mg/dL (8.5-10.1) L 11/11/16 10:31 Total Bilirubin 0.3 mg/dL (0.2-1.0) D 11/11/16 10:31 AST 16 U/L (15-37) D 11/11/16 10:31 ALT 19 U/L (12-78) D 11/11/16 10:31 Alkaline Phosphatase 215 U/L (45-117) H D 11/11/16 10:31 Total Protein 7.0 g/dl (6.4-8.2) 11/11/16 10:31 Albumin 1.8 g/dl (3.4-5.0) L 11/11/16 10:31 Intake & Output 11/08/16 11/09/16 11/10/16 11/11/16 23:59 23:59 23:59 23:59 Intake Total 1555 1537 2020 250 Output Total 450 320 800 Balance 1105 1537 1700 -550 Active Medications Generic Name Dose Route Start Last Admin Trade Name Freq PRN Reason Stop Dose Admin Acetaminophen 650 mg 11/05/16 14:11 11/11/16 08:36 Tylenol - PO 650 mg Q4H PRN Administration FEVER OR PAIN Albuterol/Ipratropium 1 amp 11/05/16 18:00 11/11/16 14:05 Duoneb - NEB Not Given QIDR [facility]ANGE[facility]HA Albuterol/Ipratropium 1 amp 11/11/16 08:51 11/11/16 10:10 Duoneb - NEB 1 amp Q4H PRN Administration SHORTNESS OF BREATH Amino Acids 30 ml 11/08/16 17:30 11/11/16 08:35 Prosource No Carb Liquid Pkt PO 30 ml BID@0800,1730 [facility] Administration Amlodipine Besylate 5 mg 11/11/16 10:00 11/11/16 09:12 Norvasc - PO Not Given DAILY [facility] Ascorbic Acid 500 mg 11/09/16 10:00 11/11/16 09:11 Vitamin C - PO 500 mg DAILY [facility] Administration Clopidogrel Bisulfate 75 mg 11/06/16 10:00 11/11/16 09:11 Plavix - PO 75 mg DAILY [facility] Administration Docusate Sodium 100 mg 11/05/16 22:00 11/11/16 14:13 Colace - PO 100 mg TID [facility] Administration Ferrous Sulfate 325 mg 11/05/16 17:30 11/11/16 08:34 Feosol - PO 325 mg BIDWM [facility] Administration Guaifenesin 5 ml 11/09/16 04:15 11/09/16 04:18 Robitussin Dm - PO 5 ml Q6H PRN Administration COUGH Heparin Sodium (Porcine) 5,000 unit 11/05/16 22:00 11/11/16 14:14 Heparin - SQ 5,000 unit TID SANGE[facility] Administration Piperacillin Sod/Tazobactam Sod 50 mls @ 100 mls/hr 11/05/16 18:00 11/11/16 09: 12 Zosyn 3.375gm Ivpb (Pre-Docked) IVPB 100 mls/hr Q8H-IV [facility] Administration Protocol Vancomycin HCl 1,500 mg/ 500 mls @ 166.667 mls/hr 11/10/16 10:24 11/11/16 10:00 Dextrose IVPB 166.667 mls/hr BID [facility] Administration Insulin Aspart 1 vial 11/05/16 16:30 11/11/16 10:54 Novolog Vial Sliding Scale - SQ Not Given ACHS [facility] Protocol Insulin Detemir 12 units 11/10/16 12:02 11/10/16 21:43 Levemir Vial SQ 12 units HS [facility] Administration Insulin Detemir 25 units 11/10/16 12:02 11/11/16 06:14 Levemir Vial SQ 25 units AM [facility] Administration Lisinopril 20 mg 11/06/16 10:00 11/11/16 09:12 Prinivil PO Not Given DAILY [facility] Multivitamins/Minerals/Vitamin C 1 tab 11/09/16 10:00 11/11/16 09:11 Tab-A-Vit - PO 1 tab DAILY [facility] Administration Polyethylene Glycol 17 gm 11/09/16 10:15 11/11/16 09:11 Miralax (For Daily Use) - PO 17 gm BID [facility] Administration IMAGING: CT head on 11/11: No acute pathology LE doppler on 11/11: No DVT CXR on 11/10Since the prior study of 11/05/2016, the right lung is slightly better aerated. There is some minimal fluid and atelectasis at the right base. There is increased fluid with atelectasis or infiltrate at the left base. There are some congestive changes. ASSESSMENT/PLAN: 56 yo M with h/o uncontrolled DMII admitted for L foot osteomyelitis. Osteomyelitis, L first toe - Afrebile, WBC normal - Cont. vanco day 4 and zosyn day 5 - Vanco trough remains subtherapeutic * increased vancomycin dose 1.25g BID to 1.5g BID * will re-check trough tonight before dosing * likely defer amputation Altered mental status, mild - Worse than baseline - CT head negative - ABG within normal limits - Likely toxic-metabolic encephalopathy 2/2 infection Dyspea 2/2 pleural effusion - Sat. 87% on RA, improved to 97% on NC 2L - Likely 2/2 underlying atelectasis and effusion - S/p lasix last night - Lasix PRN and spirometry Normocytic anemia - Baseline ~10 - H&H stable s/p transfusion - Cont. Fe supplement - Transfuse if HGB < 7 IDDM - Cont. sliding scale and levemir decreased to 12/25 units BID HTN - Started norvasc 5mg daily FEN - IVF not indicated - Normal lytes - Diabetic/Sodium diet + prosource Prophylaxis - DVT: heparin - GI: not indicated Disposition - May plan discharge once vanco therapeutic, for now cont. to monitor on med- surg Code status - Full Visit type - Emergency Visit Emergency Visit: No - New Patient This patient is new to me today: No - Critical Care Critical Care patient: No
--- NOTE | 2016-11-11 14:51 | PN ---
Progress Note (short form) - Note Progress Note: Placed vac today Vital Signs Period Temp Pulse Resp BP Sys/Lopez Pulse Ox Last 24 Hr 97.8 F-98.8 F 100-108 20-24 155-183/83-103 97-97 PE: GEN: A&0x3, NAD Left foot: no foul odor to foot. No erythema or tenderness to foot. wound base with mild fibrinous material bone exposed on the medial aspect. dorsal tissue over his extensor tendons with eschar. wound vac applied today with white foam over bone/black foam to the base. CBC, BMP 11/11/16 07:50 11/11/16 10:31 Problem List - Problems (1) Gangrenous toe Assessment/Plan: s/p left foot great toe amp/debridement and washout. Wound vac applied today and will change dressing MWF Continue local wound care/IV abx with vanco/tamsyn D/w Dr. Ponce Code(s): I96 - GANGRENE, NOT ELSEWHERE CLASSIFIED
--- NOTE | 2016-11-11 18:01 | PN ---
Progress Note, Physician History of Present Illness: stable doing well wound starting to look good no complaints patient feels better - Current Medication List Current Medications: Active Medications Acetaminophen (Tylenol -) 650 mg PO Q4H PRN PRN Reason: FEVER OR PAIN Last Admin: 11/11/16 08:36 Dose: 650 mg Albuterol/Ipratropium (Duoneb -) 1 amp NEB QIDR [facility] Last Admin: 11/11/16 14:05 Dose: Not Given Albuterol/Ipratropium (Duoneb -) 1 amp NEB Q4H PRN PRN Reason: SHORTNESS OF BREATH Last Admin: 11/11/16 10:10 Dose: 1 amp Amino Acids (Prosource No Carb Liquid Pkt) 30 ml PO BID@0800,1730 [facility] Last Admin: 11/11/16 17:17 Dose: 30 ml Amlodipine Besylate (Norvasc -) 5 mg PO DAILY [facility] Last Admin: 11/11/16 09:12 Dose: Not Given Ascorbic Acid (Vitamin C -) 500 mg PO DAILY [facility] Last Admin: 11/11/16 09:11 Dose: 500 mg Clopidogrel Bisulfate (Plavix -) 75 mg PO DAILY [facility] Last Admin: 11/11/16 09:11 Dose: 75 mg Docusate Sodium (Colace -) 100 mg PO TID [facility] Last Admin: 11/11/16 14:13 Dose: 100 mg Ferrous Sulfate (Feosol -) 325 mg PO BIDWM [facility] Last Admin: 11/11/16 17:17 Dose: 325 mg Guaifenesin (Robitussin Dm -) 5 ml PO Q6H PRN PRN Reason: COUGH Last Admin: 11/09/16 04:18 Dose: 5 ml Heparin Sodium (Porcine) (Heparin -) 5,000 unit SQ TID [facility] Last Admin: 11/11/16 14:14 Dose: 5,000 unit Piperacillin Sod/Tazobactam Sod (Zosyn 3.375gm Ivpb (Pre-Docked)) 50 mls @ 100 mls/hr IVPB Q8H-IV [facility] PRN Reason: Protocol Last Admin: 11/11/16 17:17 Dose: 100 mls/hr Vancomycin HCl 1,500 mg/ (Dextrose) 500 mls @ 166.667 mls/hr IVPB BID [facility] Last Admin: 11/11/16 10:00 Dose: 166.667 mls/hr Insulin Aspart (Novolog Vial Sliding Scale -) 1 vial SQ ACHS [facility] PRN Reason: Protocol Last Admin: 11/11/16 17:01 Dose: Not Given Insulin Detemir (Levemir Vial) 12 units SQ HS [facility] Last Admin: 11/10/16 21:43 Dose: 12 units Insulin Detemir (Levemir Vial) 25 units SQ AM [facility] Last Admin: 11/11/16 06:14 Dose: 25 units Lisinopril (Prinivil) 20 mg PO DAILY [facility] Last Admin: 11/11/16 09:12 Dose: Not Given Multivitamins/Minerals/Vitamin C (Tab-A-Vit -) 1 tab PO DAILY [facility] Last Admin: 11/11/16 09:11 Dose: 1 tab Polyethylene Glycol (Miralax (For Daily Use) -) 17 gm PO BID [facility] Last Admin: 11/11/16 09:11 Dose: 17 gm - Objective Vital Signs: Vital Signs Temperature 97.6 F 11/11/16 14:14 Pulse Rate 90 11/11/16 14:14 Respiratory Rate 22 11/11/16 14:14 Blood Pressure 161/90 11/11/16 14:14 O2 Sat by Pulse Oximetry (%) 97 11/11/16 10:35 Constitutional: Yes: No Distress, Calm Cardiovascular: Yes: Regular Rate and Rhythm Respiratory: Yes: Regular, CTA Bilaterally Gastrointestinal: Yes: Normal Bowel Sounds, Soft Musculoskeletal: Yes: WNL Extremities: Yes: WNL Neurological: Yes: Alert, Oriented Psychiatric: Yes: Alert, Oriented Labs: CBC, BMP 11/11/16 07:50 11/11/16 10:31 INR, PTT INR 1.36 (0.82-1.09) H 10/24/16 07:50 Assessment/Plan osteo of the left toe wound infection dm fever leukocytosis wbc decreasing plan continue abx wound care plan from vascular is wound vac rest continue current mgmt
--- NOTE | 2016-11-11 18:21 | CON.NEURO ---
Consult Consult Specialty:: Neurology - History of Present Illness History of Present Illness: 56 year-old male with PMH uncontrolled IDDM and gangrenous left foot ulcer s/ p angioplasty (08/2016) presents to ED on 10/23/16 +osteomyelitis on ABX, called for acute encphalopathy . As per ID, has been confused , though intermittently fluctuating MS; ++bacteremic on ABX by bedside; he opens eyes though is unable to elaborate further HX. CT HD : mild left frontal encephalomalacia , no acute pathology - History Source History Provided By: Medical Record - Alcohol/Substance Use Hx Alcohol Use: No - Smoking History Smoking history: Never smoked - Social History Usual Living Arrangement: Alone Home Medications - Allergies Allergies/Adverse Reactions: Allergies Allergy/AdvReac Type Severity Reaction Status Date / Time No Known Allergies Allergy Verified 10/23/16 11:32 - Home Medications Home Medications: Ambulatory Orders Clopidogrel Bisulfate [Plavix -] 75 mg PO DAILY #30 tablet 09/01/16 Insulin (Levemir) [Levemir Vial] 15 units SQ HS #1 ml 09/01/16 Insulin (Levemir) [Levemir Vial] 25 units SQ AM #1 ml 09/01/16 Physical Exam-Neuro Vital Signs: Vital Signs Temperature 97.6 F 11/11/16 14:14 Pulse Rate 90 11/11/16 14:14 Respiratory Rate 22 11/11/16 14:14 Blood Pressure 161/90 11/11/16 14:14 O2 Sat by Pulse Oximetry (%) 97 11/11/16 10:35 Constitutional: Yes: Diaphoresis, Moderate Distress Neck: Yes: Other (mild neck stiffness ) Cardiovascular: Yes: Regular Rate and Rhythm Labs: CBC, BMP 11/11/16 07:50 11/11/16 10:31 INR, PTT INR 1.36 (0.82-1.09) H 10/24/16 07:50 - Neuro Exam Level Of Consciousness: Yes: Stuporous (poorly arousable, awakens to name, though unable to verbalize more ; barely follows requests, EOMI, proptosis LEFT eye, no facila, mild coghweeling and +ASTERIXIS, left heal PVD changes (osteo), r plantar equivocal) NIH Stroke Scale - Total Score NIH Stroke Scale Score: 0 Imaging - Results Cat Scan: Report Reviewed, Image Reviewed Problem List - Problems (1) Type 2 diabetes mellitus with diabetic neuropathy, unspecified Code(s): E11.40 - TYPE 2 DIABETES MELLITUS WITH DIABETIC NEUROPATHY, UNSP (2) Encephalopathy acute Code(s): G93.40 - ENCEPHALOPATHY, UNSPECIFIED (3) Bacteremia Code(s): R78.81 - BACTEREMIA Assessment/Plan 56 year-old male with PMH uncontrolled IDDM and gangrenous left foot ulcer s/p angioplasty (08/2016) presents to ED on 10/23/16 +osteomyelitis on ABX, called for acute encephalopathy . As per ID, has been confused , though intermittently fluctuating MS; ++bacteremic on ABX by bedside; he opens eyes though is unable to elaborate further HX. CT HD : mild left frontal encephalomalacia , no acute pathology asterixis suggests tox/metabolic /infectious etiology, bacteremia in setting of poorly controlled sugars ( a1c >12) may be the etiology no clear evidence of seizures spoke to ID /vascular FU though given poor MS/slight neck stiffness may have to consider meningitis check MRI BRAIN, if MS persists will get fluoroguided LP recheck ESR/CRP , TSH Dr Pascual [phone]
[2016-11-12] MEDS: HEPARIN NA (PORCINE) 5,000 UNITS/ML 1ML VIAL SQ SCH ×3 (05:58→21:55)
[2016-11-12] MEDS: INSULIN DETEMIR 100 UNITS/ML MDV SQ SCH ×2 (05:59→21:56)
[2016-11-12] MEDS: INSULIN SLIDING SCALE (NOVOLOG) 1 VIAL SQ SCH ×4 (05:59→21:55)
[2016-11-12] MEDS: DOCUSATE SODIUM 100 MG CAPSULE (FP) PO SCH ×3 (05:59→21:55)
[2016-11-12] MEDS: ALBUTEROL SO4 2.5/IPRATROPIUM 0.5 INH SOL 3 ML VIAL.NEB. NEB SCH ×5 (06:00→23:40)
[2016-11-12 08:50] LABS: MCH 27.8 pg (25.7-33.7); MCHC 32.8 g/dl (32.0-35.9); MEAN CELL VOLUME 84.8 fl (80-96); MEAN PLT VOLUME 6.2 fl (7.5-11.1); PLATELET COUNT 467 K/MM3 (134-434); RDW 16.8 % (11.9-15.9); WHITE BLOOD COUNT 8.8 K/mm3 (4.0-10.0)
--- NOTE | 2016-11-12 09:41 | PN ---
Progress Note (short form) - Note Progress Note: 56 year-old male with PMH uncontrolled IDDM and gangrenous left foot ulcer s/p angioplasty (08/2016) presents to ED on 10/23/16 +osteomyelitis on ABX, called for acute encphalopathy . As per ID, has been confused , though intermittently fluctuating MS; ++bacteremic on ABX by bedside; he opens eyes though is unable to elaborate further HX. CT HD : mild left frontal encephalomalacia , no acute pathology Today pt. appears improved. He is awake, alert, oriented to place/person, month , year. is abl;e to sit up. Denies headache. Neuro exam- neck is supple. A&P: Improving encephalopathy. Would hold off on L/P as pt. is improving. Likely encephalopathy from bacteremia/metabolic causes.
[2016-11-12] MEDS: POLYETHYLENE GLYCOL 3350 119 GM BTL PO SCH ×2 (10:05→21:56)
[2016-11-12] MEDS: amLODIPine BESYLATE 5 MG TABLET (FP) PO SCH (10:05)
[2016-11-12] MEDS: ASCORBIC ACID 500 MG TABLET (FP) PO SCH (10:05)
[2016-11-12] MEDS: FERROUS SO4 325 MG TABLET (FP) PO SCH ×2 (10:05→17:32)
[2016-11-12] MEDS: MULTIVITAMINS (DAILY MVI) TABLET (FP) PO SCH (10:05)
[2016-11-12] MEDS: LISINOPRIL 20 MG TABLET (FP) PO SCH (10:05)
[2016-11-12] MEDS: AMINO ACIDS/PROTEIN HYDROLYS 30 ML LIQUID.PKT PO SCH ×2 (10:05→17:32)
[2016-11-12] MEDS: CLOPIDOGREL BISULFATE 75 MG TABLET (FP) PO SCH (10:05)
[2016-11-12] MEDS: VANCOMYCIN 1,500 MG in DEXTROSE 5%-WATER - 500 ML IVPB SCH ×2 (10:10→21:57)
--- NOTE | 2016-11-12 10:22 | PN ---
Teaching Attending Note Name of Resident: Edward Chamberlain ATTENDING PHYSICIAN STATEMENT I saw and evaluated the patient. I reviewed the resident's note and discussed the case with the resident. I agree with the resident's findings and plan as documented. SUBJECTIVE: Patient is awake and alert. He has no complaints. OBJECTIVE: Vital Signs Period Temp Pulse Resp BP Sys/Lopez Pulse Ox Last 24 Hr 97.0 F-98.2 F 90-102 18-22 150-161/83-99 97 HEART: S1S2, RRR LUNGS: Clear ABDOMEN: Soft, non-tender, non-distended, normal BS EXTREMITIES: No edema, s/p left 1st toe amputation with wound VAC in place ASSESSMENT AND PLAN: This is a 56-year-old man with a history of type 2 DM, PAD who was admitted for left 1st toe osteomyelitis. 1. Sepsis secondary to osteomyelitis of left 1st toe, possible pneumonia - s/p left 1st toe/partial ray amputation 10/30, excisional debridement of left foot 11/05 - Continue Zosyn, Vancomycin - Continue wound VAC 2. Acute metabolic encephalopathy - Likely secondary to infection - Improving - MRI of brain pending 3. Fluid overload - Improved with Lasix IV 4. Acute anemia likely secondary to sepsis - Transfused 4 units PRBCs this admission - Hemoglobin stable - Continue ferrous sulfate - Transfuse for Hgb<7.0 5. Anemia secondary to chronic illness 6. Acute hypoxic respiratory failure - Improved 7. Type 2 DM, uncontrolled - Continue Levemir, Novolog sliding scale 8. PAD, history of LLE angioplasty - Continue Plavix 9. HTN - Continue Lisinopril, Norvasc
--- NOTE | 2016-11-12 10:29 | PN ---
Progress Note (short form) - Note Progress Note: Vascular Surgery Pt seen and examined. VAC in place. Will need outpt HBO for healing. Should follow up in wound care clinic upon DC. Please set up appt prior to DC -- [phone] Luis Manuel Ponce DO
--- NOTE | 2016-11-12 12:57 | PN ---
Progress Note, Physician History of Present Illness: stable patient a little bit lethargic from wound point of view patient stable probably vac tomorrow - Current Medication List Current Medications: Active Medications Acetaminophen (Tylenol -) 650 mg PO Q4H PRN PRN Reason: FEVER OR PAIN Last Admin: 11/11/16 08:36 Dose: 650 mg Albuterol/Ipratropium (Duoneb -) 1 amp NEB QIDR [facility] Last Admin: 11/12/16 11:05 Dose: 1 amp Albuterol/Ipratropium (Duoneb -) 1 amp NEB Q4H PRN PRN Reason: SHORTNESS OF BREATH Last Admin: 11/11/16 10:10 Dose: 1 amp Amino Acids (Prosource No Carb Liquid Pkt) 30 ml PO BID@0800,1730 [facility] Last Admin: 11/12/16 10:05 Dose: 30 ml Amlodipine Besylate (Norvasc -) 5 mg PO DAILY [facility] Last Admin: 11/12/16 10:05 Dose: 5 mg Ascorbic Acid (Vitamin C -) 500 mg PO DAILY [facility] Last Admin: 11/12/16 10:05 Dose: 500 mg Clopidogrel Bisulfate (Plavix -) 75 mg PO DAILY [facility] Last Admin: 11/12/16 10:05 Dose: 75 mg Docusate Sodium (Colace -) 100 mg PO TID [facility] Last Admin: 11/12/16 05:59 Dose: 100 mg Ferrous Sulfate (Feosol -) 325 mg PO BIDWM [facility] Last Admin: 11/12/16 10:05 Dose: 325 mg Guaifenesin (Robitussin Dm -) 5 ml PO Q6H PRN PRN Reason: COUGH Last Admin: 11/09/16 04:18 Dose: 5 ml Heparin Sodium (Porcine) (Heparin -) 5,000 unit SQ TID [facility] Last Admin: 11/12/16 05:58 Dose: 5,000 unit Vancomycin HCl 1,500 mg/ (Dextrose) 500 mls @ 166.667 mls/hr IVPB BID [facility] Last Admin: 11/12/16 10:10 Dose: 166.667 mls/hr Insulin Aspart (Novolog Vial Sliding Scale -) 1 vial SQ ACHS [facility] PRN Reason: Protocol Last Admin: 11/12/16 11:37 Dose: Not Given Insulin Detemir (Levemir Vial) 12 units SQ HS [facility] Last Admin: 11/11/16 23:23 Dose: 12 units Insulin Detemir (Levemir Vial) 25 units SQ AM [facility] Last Admin: 11/12/16 05:59 Dose: 25 units Lisinopril (Prinivil) 20 mg PO DAILY [facility] Last Admin: 11/12/16 10:05 Dose: 20 mg Multivitamins/Minerals/Vitamin C (Tab-A-Vit -) 1 tab PO DAILY [facility] Last Admin: 11/12/16 10:05 Dose: 1 tab Polyethylene Glycol (Miralax (For Daily Use) -) 17 gm PO BID [facility] Last Admin: 11/12/16 10:05 Dose: 17 gm - Objective Vital Signs: Vital Signs Temperature 97.7 F 11/12/16 07:38 Pulse Rate 96 H 11/12/16 07:38 Respiratory Rate 20 11/12/16 07:38 Blood Pressure 155/99 11/12/16 07:38 O2 Sat by Pulse Oximetry (%) 97 11/11/16 10:35 Constitutional: Yes: No Distress, Calm Eyes: Yes: Conjunctiva Clear Neck: Yes: Supple Cardiovascular: Yes: Regular Rate and Rhythm Respiratory: Yes: Regular, CTA Bilaterally Gastrointestinal: Yes: Normal Bowel Sounds, Soft Musculoskeletal: Yes: Other Extremities: Yes: Other Integumentary: Yes: Other Wound/Incision: Yes: Dressing Dry and Intact Neurological: Yes: Alert, Oriented Psychiatric: Yes: Alert, Oriented Labs: CBC, BMP 11/12/16 08:30 11/11/16 10:31 INR, PTT INR 1.36 (0.82-1.09) H 10/24/16 07:50 Assessment/Plan osteo of the left toe wound infection dm fever leukocytosis wbc decreasing plan continue abx wound care plan from vascular is wound vac rest continue current mgmt neurology to evaluate the patient
--- NOTE | 2016-11-12 14:34 | PN ---
Physical Exam: SUBJECTIVE: Patient seen and examined at bedside. He stated that he's feeling better and pain is under control. Denies chest pain, sob, urinary or bowel symptoms. OBJECTIVE: Vital Signs Period Temp Pulse Resp BP Sys/Lopez Pulse Ox Last 24 Hr 97.0 F-98.2 F 94-98 18-20 150-156/83-99 GENERAL: AAO x 3, able to speak full sentences, at baseline mental status, no respiratory distress EYES: sclera anicteric, conjunctiva clear ENT:oropharynx clear without exudates LUNGS: b/l wheezes HEART: Tachycardic, S1 and S2 present,No murmur ABDOMEN: +bs, soft, non-tender EXTREMITIES: L foot wound vac in place CBCD WBC 8.8 K/mm3 (4.0-10.0) 11/12/16 08:30 RBC 2.76 M/mm3 (4.00-5.60) L 11/12/16 08:30 Hgb 7.7 GM/dL (11.7-16.9) L 11/12/16 08:30 Hct 23.4 % (35.4-49) L 11/12/16 08:30 MCV 84.8 fl (80-96) 11/12/16 08:30 MCHC 32.8 g/dl (32.0-35.9) 11/12/16 08:30 RDW 16.8 % (11.9-15.9) H 11/12/16 08:30 Plt Count 467 K/MM3 (134-434) H 11/12/16 08:30 MPV 6.2 fl (7.5-11.1) L 11/12/16 08:30 Active Medications Generic Name Dose Route Start Last Admin Trade Name Freq PRN Reason Stop Dose Admin Acetaminophen 650 mg 11/05/16 14:11 11/11/16 08:36 Tylenol - PO 650 mg Q4H PRN Administration FEVER OR PAIN Albuterol/Ipratropium 1 amp 11/05/16 18:00 11/12/16 11:05 Duoneb - NEB 1 amp QIDR SANGEETHA Administration Albuterol/Ipratropium 1 amp 11/11/16 08:51 11/11/16 10:10 Duoneb - NEB 1 amp Q4H PRN Administration SHORTNESS OF BREATH Amino Acids 30 ml 11/08/16 17:30 11/12/16 10:05 Prosource No Carb Liquid Pkt PO 30 ml BID@0800,1730 SANGEETHA Administration Amlodipine Besylate 5 mg 11/11/16 10:00 11/12/16 10:05 Norvasc - PO 5 mg DAILY SANGEETHA Administration Ascorbic Acid 500 mg 11/09/16 10:00 11/12/16 10:05 Vitamin C - PO 500 mg DAILY SANGEETHA Administration Clopidogrel Bisulfate 75 mg 11/06/16 10:00 11/12/16 10:05 Plavix - PO 75 mg DAILY SANGEETHA Administration Docusate Sodium 100 mg 11/05/16 22:00 11/12/16 14:14 Colace - PO 100 mg TID SANGEETHA Administration Ferrous Sulfate 325 mg 11/05/16 17:30 11/12/16 10:05 Feosol - PO 325 mg BIDWM SANGEETHA Administration Guaifenesin 5 ml 11/09/16 04:15 11/09/16 04:18 Robitussin Dm - PO 5 ml Q6H PRN Administration COUGH Heparin Sodium (Porcine) 5,000 unit 11/05/16 22:00 11/12/16 14:15 Heparin - SQ 5,000 unit TID SANGEETHA Administration Vancomycin HCl 1,500 mg/ 500 mls @ 166.667 mls/hr 11/10/16 10:24 11/12/16 10:10 Dextrose IVPB 166.667 mls/hr BID SANGEETHA Administration Insulin Aspart 1 vial 11/05/16 16:30 11/12/16 11:37 Novolog Vial Sliding Scale - SQ Not Given ACHS [facility] Protocol Insulin Detemir 12 units 11/10/16 12:02 11/11/16 23:23 Levemir Vial SQ 12 units HS SANGEETHA Administration Insulin Detemir 25 units 11/10/16 12:02 11/12/16 05:59 Levemir Vial SQ 25 units AM SANGEETHA Administration Lisinopril 20 mg 11/06/16 10:00 11/12/16 10:05 Prinivil PO 20 mg DAILY SANGEETHA Administration Multivitamins/Minerals/Vitamin C 1 tab 11/09/16 10:00 11/12/16 10:05 Tab-A-Vit - PO 1 tab DAILY SANGEETHA Administration Polyethylene Glycol 17 gm 11/09/16 10:15 11/12/16 10:05 Miralax (For Daily Use) - PO 17 gm BID SANGEETHA Administration IMAGING: MRI on 11/12: Symmetrical foci of restricted diffusion are seen on diffusion- weighted images in the region of the genu internal capsule, globus pallidus, with additional foci of restrictive changes in the posterior limb of internal capsule. The lesions shows increased signal intensity on diffusion weighted images with corresponding low signal intensity on ADC, increased signal intensity on FLAIR images. Symmetrical abnormal signal in globus pallidus may be seen in patient with history of the hypoxic ischemic encephalopathy, hepatic encephalopathy, drug abuse. Punctate foci of restricted diffusion are seen in the bifrontal white matter, left posterior sandy radiata. Punctate foci of increased signal intensity on diffusion weighted images are seen in the right anterior periventricular white matter, right centrum semiovale, right parietal lobe white matter, not clearly seen on ADC images due to the size of the lesions. CT head on 11/11: No acute pathology LE doppler on 11/11: No DVT CXR on 11/10: Since the prior study of 11/05/2016, the right lung is slightly better aerated. There is some minimal fluid and atelectasis at the right base. There is increased fluid with atelectasis or infiltrate at the left base. There are some congestive changes. ASSESSMENT/PLAN: 56 yo M with h/o uncontrolled DMII admitted for L foot osteomyelitis. Osteomyelitis, L first toe - Afrebile, WBC normal - Cont. vanco day 5 and zosyn day - Vanco trough therapeutic * likely defer amputation * wound vac * outpatient follow up with Dr. Ponce Altered mental status, mild - Resolved, now at baseline - MRI shows acute vs. subacute ischemic stroke - F/u carotid doppler and ECHO - Spoke to Dr. Bautista regarding radiologic findings Dyspea 2/2 pleural effusion - Resolved - Lasix PRN and spirometry Normocytic anemia - Baseline ~10 - H&H stable s/p transfusion - Cont. Fe supplement - Transfuse if HGB < 7 IDDM - Cont. sliding scale and levemir decreased to 12/25 units BID HTN - Cont. norvasc 5mg daily - May start BIDIL on discharge FEN - IVF not indicated - Normal lytes - Diabetic/Sodium diet + prosource Prophylaxis - DVT: heparin - GI: not indicated Disposition - PICC line - Outpatient appointment with Dr. Ponce set up before discharge Code status - Full Visit type - Emergency Visit Emergency Visit: No - New Patient This patient is new to me today: No - Critical Care Critical Care patient: No
[2016-11-12] MEDS ORDERED: INSULIN (NOVOLOG) ASPART 100 UNITS/ML 10ML VIAL ONE (20:42)
[2016-11-12] MEDS ORDERED: amLODIPine BESYLATE 5 MG TABLET (FP) PO ONE (23:42)
[2016-11-13] MEDS: DOCUSATE SODIUM 100 MG CAPSULE (FP) PO SCH ×3 (05:46→21:27)
[2016-11-13] MEDS: INSULIN SLIDING SCALE (NOVOLOG) 1 VIAL SQ SCH ×4 (06:10→21:28)
[2016-11-13] MEDS: ALBUTEROL SO4 2.5/IPRATROPIUM 0.5 INH SOL 3 ML VIAL.NEB. NEB SCH ×4 (06:38→23:39)
[2016-11-13 08:30] LABS: MCH 27.5 pg (25.7-33.7); MCHC 32.7 g/dl (32.0-35.9); MEAN CELL VOLUME 84.2 fl (80-96); MEAN PLT VOLUME 6.4 fl (7.5-11.1); PLATELET COUNT 504 K/MM3 (134-434); RDW 16.4 % (11.9-15.9); WHITE BLOOD COUNT 7.6 K/mm3 (4.0-10.0)
[2016-11-13] MEDS: FERROUS SO4 325 MG TABLET (FP) PO SCH ×2 (08:36→17:16)
[2016-11-13] MEDS: AMINO ACIDS/PROTEIN HYDROLYS 30 ML LIQUID.PKT PO SCH ×2 (08:36→17:16)
[2016-11-13] MEDS: INSULIN DETEMIR 100 UNITS/ML MDV SQ SCH ×2 (08:38→21:27)
--- NOTE | 2016-11-13 09:30 | CON.CARD ---
Consult Consult Specialty:: Cardiology Referred by:: Dr. Gold Reason for Consultation:: CVA, PAD and assistance with BP control - History of Present Illness Chief Complaint: Assistance w/ BP management History of Present Illness: 56M with DM, HTN, PAD hospitalized for > 1 week with LLE osteo, foot abscess s/ p debridement and amputation of L. great toe. We were consulted to assist w/ BP management. On cardiac ROS, he denies history of CAD or prior coronary revascularization. Denies palpitations, chest pain or SOB. Denies h/o of AFIB. Recent MRI done for altered mental status showed diffusion pattern c/w bilateral CVAs. His blood pressure has also been moderately elevated. 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 Cardio/Vascular: Yes: HTN, Other (PAD) Gastrointestinal: No: Ascites, Cancer, Constipation, Crohn's Disease, Diverticulitis, Diverticulosis, Esophageal Varices, Gastritis, GERD, GI Bleed, Hemorrhoids, Hiatal Hernia, Inflamatory Bowel Disease, Irritable Bowel Disease, Pancreatitis, Peptic Ulcer Disease, Ulcerative Colitis, Other Hepatobiliary: No: Cirrhosis, Cholelithiasis, Cholecystitis, Choledocholithiasis , Hepatitis A, Hepatitis B, Hepatitis C, Other Renal/: No: Renal Failure, Renal Inusuff, BPH, Cancer, Hematuria, Hemodialysis , Neurogenic Bladder, Renal Calculi, UTI, Other Heme/Onc: No: Anemia, B12 Deficiency, Bleeding Disorder, Cancer, Current Chemotherapy, Current Radiation Therapy, Hemochromatosis, Hypercoaguable State, Myeloproliferative Synd, Sickle Cell Disease, Sickle Cell Trait, Thrombocytopenia, Other Endocrine: Yes: Diabetes Mellitus - Past Surgical History Additional Surgical History: Right thumb surgery after trauma years ago - Alcohol/Substance Use Hx Alcohol Use: No History of Substance Use: reports: None - Smoking History Smoking history: Never smoked Have you smoked in the past 12 months: No - Social History Usual Living Arrangement: Alone 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 Asymptomatic from cardiac perspective but fairly sedentary - Review of Systems Constitutional: reports: No Symptoms Eyes: reports: No Symptoms HENT: reports: No Symptoms Neck: reports: No Symptoms Cardiovascular: reports: No Symptoms Respiratory: reports: No Symptoms Gastrointestinal: reports: No Symptoms Genitourinary: reports: No Symptoms Breasts: reports: No Symptoms Reported Musculoskeletal: reports: No Symptoms Integumentary: reports: No Symptoms Neurological: reports: Change in LOC, Confusion, Other ("Slow thinking") Endocrine: denies: No Symptoms, Excessive Sweating, Flushing, Increased Hunger, Increased Thirst, Intolerance to Cold, Intolerance to Heat, Unexplained Weight Gain, Unexplained Weight Loss, Other Hematology/Lymphatic: denies: No Symptoms, Easily Bruised, Excessive Bleeding, Swollen Glands, Other - Risk Factors Known Risk Factors: Yes: Diabetes Mellitus, Hypertension, Other (PAD) Vital Signs: Vital Signs Temperature 99.0 F 11/13/16 07:36 Pulse Rate 97 H 11/13/16 07:36 Respiratory Rate 20 11/13/16 07:36 Blood Pressure 168/103 11/13/16 07:36 O2 Sat by Pulse Oximetry (%) 97 11/12/16 21:00 Constitutional: Yes: Calm Eyes: Yes: Conjunctiva Clear, EOM Intact HENT: Yes: Atraumatic Neck: Yes: Supple Respiratory: Yes: CTA Bilaterally Gastrointestinal: Yes: Soft (non-tender) Cardiovascular: Yes: Regular Rate and Rhythm JVD: No Carotid Bruit: No Heart Sounds: Yes: S1, S2 (RRR) Murmur: Yes: Systolic Murmur (2/6 KAREN RSB) Musculoskeletal: Yes: Other (VAC dressing in place) Edema: No Peripheral Pulses WNL: No Peripheral Pulses: 1+ Left Doralis Pedis, 1+ Right Dorsalis Pedis Neurological: Yes: Alert, Oriented - Other Data Labs, Other Data: CBC, BMP 11/13/16 07:30 11/11/16 10:31 INR, PTT INR 1.36 (0.82-1.09) H 10/24/16 07:50 Microbiology 11/02/16 10:05 Blood - Peripheral Venous Blood Culture - Final NO GROWTH AFTER 5 DAYS INCUBATION 11/02/16 10:05 Blood - Peripheral Venous Blood Culture - Final NO GROWTH AFTER 5 DAYS INCUBATION 10/24/16 10:56 Foot - Left Plantar Gram Stain - Final 10/24/16 10:56 Foot - Left Plantar Wound Culture - Final Staphylococcus Aureus Enterococcus Faecalis Strep Agalactiae Group B 10/23/16 12:30 Foot - Left Plantar Gram Stain - Final 10/23/16 12:30 Foot - Left Plantar Wound Culture - Final Staphylococcus Aureus Strep Agalactiae Group B Enterococcus Faecalis Diphtheroid/Corynebacterium 10/23/16 12:30 Blood - Peripheral Venous Blood Culture - Final NO GROWTH AFTER 5 DAYS INCUBATION 10/23/16 12:30 Blood - Peripheral Venous Blood Culture - Final NO GROWTH AFTER 5 DAYS INCUBATION Laboratory Tests 11/04/16 11/11/16 11/11/16 19:27 10:31 21:00 WBC Hgb Hct Plt Count Potassium 3.8 BUN 14 Creatinine 0.8 Stool Occult Blood Negative Vancomycin Trough 17.683 H* D 11/13/16 07:30 WBC 7.6 Hgb 8.3 L Hct 25.3 L Plt Count 504 H Potassium BUN Creatinine Stool Occult Blood Vancomycin Trough none in chart Echo: Pending Holter: Pending Imaging - Results Chest X-ray: Report Reviewed Ultrasound: Report Reviewed EKG: Pending Problem List - Problems (1) Gangrenous toe Assessment/Plan: -s/p debridement and amputation -VAC in place -further Rx as per Vascular -Need to clarify details of PAD LLE -Continue Plavix Code(s): I96 - GANGRENE, NOT ELSEWHERE CLASSIFIED (2) Type 2 diabetes mellitus with diabetic neuropathy, unspecified Assessment/Plan: -Check Lipids -Continue DIAZ-I (on lisinopril), can be uptitrated if BP remains above goal of 140/90 Code(s): E11.40 - TYPE 2 DIABETES MELLITUS WITH DIABETIC NEUROPATHY, UNSP Qualifiers: Diabetes mellitus community service specialist insulin use: unspecified prison insulin use status Qualified Code(s): E11.40 - Type 2 diabetes mellitus with diabetic neuropathy, unspecified (3) Hypertension Assessment/Plan: -Moderately elevated -Norvasc increased today, would observe BP trend -If remains above goal can titrate Lisinopril to 40mg -Would confer with Neuro to assure BP targets are clear, as MRI indicates CVA Code(s): I10 - ESSENTIAL (PRIMARY) HYPERTENSION Qualifiers: Hypertension type: essential hypertension Qualified Code(s): I10 - Essential (primary) hypertension (4) CVA (cerebral vascular accident) Assessment/Plan: -Will check echo and Holter -Carotids with b/l plaque, no indication of hemodynamically significant stenosis. -Continue Plavix -Statin for LDL goal 70mg/dl Code(s): I63.9 - CEREBRAL INFARCTION, UNSPECIFIED Qualifiers: CVA mechanism: unspecified Qualified Code(s): I63.9 - Cerebral infarction, unspecified (5) Murmur Assessment/Plan: -suspect TR -Echo -Will follow Code(s): R01.1 - CARDIAC MURMUR, UNSPECIFIED
[2016-11-13] MEDS: amLODIPine BESYLATE 10 MG TABLET (FP) PO SCH (09:40)
[2016-11-13] MEDS: MULTIVITAMINS (DAILY MVI) TABLET (FP) PO SCH (09:40)
[2016-11-13] MEDS: LISINOPRIL 20 MG TABLET (FP) PO SCH (09:40)
[2016-11-13] MEDS: CLOPIDOGREL BISULFATE 75 MG TABLET (FP) PO SCH (09:40)
[2016-11-13] MEDS: VANCOMYCIN 1,500 MG in DEXTROSE 5%-WATER - 500 ML IVPB SCH ×2 (09:41→21:27)
[2016-11-13] MEDS: ASCORBIC ACID 500 MG TABLET (FP) PO SCH (09:41)
[2016-11-13] MEDS: POLYETHYLENE GLYCOL 3350 119 GM BTL PO SCH ×2 (10:07→21:27)
--- NOTE | 2016-11-13 12:42 | PN ---
Progress Note, Physician History of Present Illness: neuro note noted patient more alert in room no distress still very weak - Current Medication List Current Medications: Active Medications Acetaminophen (Tylenol -) 650 mg PO Q4H PRN PRN Reason: FEVER OR PAIN Last Admin: 11/11/16 08:36 Dose: 650 mg Albuterol/Ipratropium (Duoneb -) 1 amp NEB QIDR [facility] Last Admin: 11/13/16 11:35 Dose: 1 amp Albuterol/Ipratropium (Duoneb -) 1 amp NEB Q4H PRN PRN Reason: SHORTNESS OF BREATH Last Admin: 11/11/16 10:10 Dose: 1 amp Amino Acids (Prosource No Carb Liquid Pkt) 30 ml PO BID@0800,1730 [facility] Last Admin: 11/13/16 08:36 Dose: 30 ml Amlodipine Besylate (Norvasc -) 10 mg PO DAILY [facility] Last Admin: 11/13/16 09:40 Dose: 10 mg Ascorbic Acid (Vitamin C -) 500 mg PO DAILY [facility] Last Admin: 11/13/16 09:41 Dose: 500 mg Clopidogrel Bisulfate (Plavix -) 75 mg PO DAILY [facility] Last Admin: 11/13/16 09:40 Dose: 75 mg Docusate Sodium (Colace -) 100 mg PO TID [facility] Last Admin: 11/13/16 05:46 Dose: 100 mg Ferrous Sulfate (Feosol -) 325 mg PO BIDWM [facility] Last Admin: 11/13/16 08:36 Dose: 325 mg Guaifenesin (Robitussin Dm -) 5 ml PO Q6H PRN PRN Reason: COUGH Last Admin: 11/09/16 04:18 Dose: 5 ml Vancomycin HCl 1,500 mg/ (Dextrose) 500 mls @ 166.667 mls/hr IVPB BID [facility] Last Admin: 11/13/16 09:41 Dose: 166.667 mls/hr Insulin Aspart (Novolog Vial Sliding Scale -) 1 vial SQ ACHS [facility] PRN Reason: Protocol Last Admin: 11/13/16 12:35 Dose: 2 units Insulin Detemir (Levemir Vial) 7 units SQ HS [facility] Insulin Detemir (Levemir Vial) 12 units SQ AM [facility] Lisinopril (Prinivil) 20 mg PO DAILY [facility] Last Admin: 11/13/16 09:40 Dose: 20 mg Multivitamins/Minerals/Vitamin C (Tab-A-Vit -) 1 tab PO DAILY [facility] Last Admin: 11/13/16 09:40 Dose: 1 tab Polyethylene Glycol (Miralax (For Daily Use) -) 17 gm PO BID [facility] Last Admin: 11/13/16 10:07 Dose: 17 gm - Objective Vital Signs: Vital Signs Temperature 99.0 F 11/13/16 07:36 Pulse Rate 97 H 11/13/16 07:36 Respiratory Rate 20 11/13/16 07:36 Blood Pressure 168/103 11/13/16 07:36 O2 Sat by Pulse Oximetry (%) 97 11/12/16 21:00 Constitutional: Yes: No Distress, Calm Cardiovascular: Yes: Regular Rate and Rhythm Respiratory: Yes: Regular, CTA Bilaterally Gastrointestinal: Yes: Normal Bowel Sounds, Soft Musculoskeletal: Yes: Other Extremities: Yes: Other Wound/Incision: Yes: Other (wound vac in place) Neurological: Yes: Alert, Oriented Psychiatric: Yes: Alert, Oriented Labs: CBC, BMP 11/13/16 07:30 11/11/16 10:31 INR, PTT INR 1.36 (0.82-1.09) H 10/24/16 07:50 - ....Imaging MRI: Report Reviewed, Image Reviewed Assessment/Plan osteo of the left toe wound infection dm fever leukocytosis wbc decreasing plan continue abx wound care rest as per neuro continue current mgmt
--- NOTE | 2016-11-13 13:24 | EKG ---
Test Reason : Blood Pressure : / mmHG Vent. Rate : 095 BPM Atrial Rate : 095 BPM P-R Int : 178 ms QRS Dur : 066 ms QT Int : 354 ms P-R-T Axes : 047 020 050 degrees QTc Int : 444 ms NORMAL SINUS RHYTHM LOW VOLTAGE QRS SEPTAL INFARCT , AGE UNDETERMINED ABNORMAL ECG NO PREVIOUS ECGS AVAILABLE Confirmed by DELTA COY MD ([id number]) on 11/13/2016 1:23:36 PM Referred By: Rory CANELA Confirmed By:DELTA COY MD
--- NOTE | 2016-11-13 13:30 | PN ---
Progress Note (short form) - Note Progress Note: Wound vac removed today and dresing changed. No pain with dressing change. Vital Signs Period Temp Pulse Resp BP Sys/Lopez Pulse Ox Last 24 Hr 98.1 F-99.2 F 97-102 18-20 153-177/88-103 97 PE: GEN: A&0x3, NAD Left foot: medial aspect with good granulation tissue base. Small amount of tissue (callous) removed to plantar surface where it was macerated. Dorsal aspect with superficial area of eschar. No purulent drainage or erythema. CBC, BMP 11/13/16 07:30 11/11/16 10:31 Problem List - Problems (1) Gangrenous toe Assessment/Plan: s/p debridement and washout of left foot for gangrene Continue IV abx vac removed today and wet to dry with santyl dressing because the skin on plantar surface was macerated D/w Dr. Ponce and will continue to follow the patient Arranging for hyperbaric treatment as an out pt. Over all the wound base appeared clean with minimal necrotic tissue. Code(s): I96 - GANGRENE, NOT ELSEWHERE CLASSIFIED
--- NOTE | 2016-11-13 14:10 | PN ---
Progress Note (short form) - Note Progress Note: HPI : 56 year-old male with PMH uncontrolled IDDM and gangrenous left foot ulcer s/p angioplasty (08/2016) presents to ED on 10/23/16 +osteomyelitis on ABX, called for acute encphalopathy . As per ID, has been confused , though intermittently fluctuating MS; ++bacteremic on ABX by bedside; he opens eyes though is unable to elaborate further HX. CT HD : mild left frontal encephalomalacia , no acute pathology FU : this AM , awake and conversive , no focal c/o MRI BRAIN reviewed : BL BG changes -- restricted signal on DWI--symmetric -- these usually are tox/metabolic in nature tiny infarct L centrum ovale-- carotid doppler- calcified plaque on L bulb and soft plaque on R , no Hemodyanamic sig. stenosis Home Medications - Allergies Allergies/Adverse Reactions: Allergies Allergy/AdvReac Type Severity Reaction Status Date / Time No Known Allergies Allergy Verified 10/23/16 11:32 - Home Medications Home Medications: Ambulatory Orders Clopidogrel Bisulfate [Plavix -] 75 mg PO DAILY #30 tablet 09/01/16 Insulin (Levemir) [Levemir Vial] 15 units SQ HS #1 ml 09/01/16 Insulin (Levemir) [Levemir Vial] 25 units SQ AM #1 ml 09/01/16 Physical Exam-Neuro Vital Signs: Vital Signs Temperature 99.0 F 11/13/16 07:36 Pulse Rate 97 H 11/13/16 07:36 Respiratory Rate 20 11/13/16 07:36 Blood Pressure 168/103 11/13/16 07:36 O2 Sat by Pulse Oximetry (%) 97 11/12/16 21:00 Constitutional: Yes: Diaphoresis, Moderate Distress Neck: Yes: Other (mild neck stiffness ) Cardiovascular: Yes: Regular Rate and Rhythm Labs: CBC, BMP 11/11/16 07:50 11/11/16 10:31 INR, PTT INR 1.36 (0.82-1.09) H 10/24/16 07:50 - Neuro Exam Level Of Consciousness: Yes: Stuporous (poorly arousable, awakens to name, though unable to verbalize more ; barely follows requests, EOMI, proptosis LEFT eye, no facila, mild coghweeling and +ASTERIXIS, left heal PVD changes (osteo), r plantar equivocal) NIH Stroke Scale - Total Score NIH Stroke Scale Score: 0 Imaging - Results Cat Scan: Report Reviewed, Image Reviewed Problem List - Problems (1) Type 2 diabetes mellitus with diabetic neuropathy, unspecified Code(s): E11.40 - TYPE 2 DIABETES MELLITUS WITH DIABETIC NEUROPATHY, UNSP (2) Encephalopathy acute Code(s): G93.40 - ENCEPHALOPATHY, UNSPECIFIED (3) Bacteremia Code(s): R78.81 - BACTEREMIA Assessment/Plan 56 year-old male with PMH uncontrolled IDDM and gangrenous left foot ulcer s/p angioplasty (08/2016) presents to ED on 10/23/16 +osteomyelitis on ABX, called for acute encephalopathy . As per ID, has been confused , though intermittently fluctuating MS; ++bacteremic on ABX by bedside; he opens eyes though is unable to elaborate further HX. CT HD : mild left frontal encephalomalacia , no acute pathology MRI BRAIN reviewed : BL BG changes -- restricted signal on DWI--symmetric -- these usually are tox/metabolic in nature tiny infarct L centrum ovale-- MS much improved-- ? metabolic vs RX vs infectious induced changes on MRI , neurologically doing better, doubt meningitis tint infarct L subcortical -- embolic vs small vessel vs carotid , check ECHO to ensure not cardioembolic , check MRA neck given Doppler results on plavix for now , watch H and H , start statin if possible does not require stroke unit Dr Pascual [phone] Problem List - Problems (1) Type 2 diabetes mellitus with diabetic neuropathy, unspecified Code(s): E11.40 - TYPE 2 DIABETES MELLITUS WITH DIABETIC NEUROPATHY, UNSP Qualifiers: Diabetes mellitus terminal operations manager insulin use: unspecified [facility] insulin use status Qualified Code(s): E11.40 - Type 2 diabetes mellitus with diabetic neuropathy, unspecified (2) Encephalopathy acute Code(s): G93.40 - ENCEPHALOPATHY, UNSPECIFIED (3) Bacteremia Code(s): R78.81 - BACTEREMIA
--- NOTE | 2016-11-13 15:11 | PN ---
Physical Exam: SUBJECTIVE: Patient seen and examined at bedside. He has no complaint in general and stated that his foot pain is under control. He had 1 episode of shortness of breath this early AM but resolved after duoneb treatment. Denies chest pain, fever, chills, urinary or bowel symptoms. OBJECTIVE: Vital Signs Period Temp Pulse Resp BP Sys/Lopez Pulse Ox Last 24 Hr 97.6 F-99.2 F 97-102 18-20 152-177/79-103 97 GENERAL: Awake, alert, and oriented to time, person only, able to speak full sentences, no respiratory distress EYES: sclera anicteric, conjunctiva clear ENT: oropharynx clear without exudates LUNGS: CTAB HEART: Tachycardic, S1 and S2 present,No murmur ABDOMEN: +bs, soft, non-tender EXTREMITIES: L foot wound vac removed, dressing in place CBCD WBC 7.6 K/mm3 (4.0-10.0) 11/13/16 07:30 RBC 3.01 M/mm3 (4.00-5.60) L 11/13/16 07:30 Hgb 8.3 GM/dL (11.7-16.9) L 11/13/16 07:30 Hct 25.3 % (35.4-49) L 11/13/16 07:30 MCV 84.2 fl (80-96) 11/13/16 07:30 MCHC 32.7 g/dl (32.0-35.9) 11/13/16 07:30 RDW 16.4 % (11.9-15.9) H 11/13/16 07:30 Plt Count 504 K/MM3 (134-434) H 11/13/16 07:30 MPV 6.4 fl (7.5-11.1) L 11/13/16 07:30 Active Medications Generic Name Dose Route Start Last Admin Trade Name Freq PRN Reason Stop Dose Admin Acetaminophen 650 mg 11/05/16 14:11 11/11/16 08:36 Tylenol - PO 650 mg Q4H PRN Administration FEVER OR PAIN Albuterol/Ipratropium 1 amp 11/05/16 18:00 11/13/16 11:35 Duoneb - NEB 1 amp QIDR [facility] Administration Albuterol/Ipratropium 1 amp 11/11/16 08:51 11/11/16 10:10 Duoneb - NEB 1 amp Q4H PRN Administration SHORTNESS OF BREATH Amino Acids 30 ml 11/08/16 17:30 11/13/16 08:36 Prosource No Carb Liquid Pkt PO 30 ml BID@0800,1730 [facility] Administration Amlodipine Besylate 10 mg 11/13/16 10:00 11/13/16 09:40 Norvasc - PO 10 mg DAILY [facility] Administration Ascorbic Acid 500 mg 11/09/16 10:00 11/13/16 09:41 Vitamin C - PO 500 mg DAILY [facility] Administration Clopidogrel Bisulfate 75 mg 11/06/16 10:00 11/13/16 09:40 Plavix - PO 75 mg DAILY [facility] Administration Docusate Sodium 100 mg 11/05/16 22:00 11/13/16 05:46 Colace - PO 100 mg TID [facility] Administration Ferrous Sulfate 325 mg 11/05/16 17:30 11/13/16 08:36 Feosol - PO 325 mg BIDWM [facility] Administration Guaifenesin 5 ml 11/09/16 04:15 11/09/16 04:18 Robitussin Dm - PO 5 ml Q6H PRN Administration COUGH Vancomycin HCl 1,500 mg/ 500 mls @ 166.667 mls/hr 11/10/16 10:24 11/13/16 09:41 Dextrose IVPB 166.667 mls/hr BID [facility] Administration Insulin Aspart 1 vial 11/05/16 16:30 11/13/16 12:35 Novolog Vial Sliding Scale - SQ 2 units ACHS [facility] Administration Protocol Insulin Detemir 7 units 11/13/16 08:04 Levemir Vial SQ HS [facility] Insulin Detemir 12 units 11/13/16 08:04 Levemir Vial SQ AM [facility] Lisinopril 20 mg 11/06/16 10:00 11/13/16 09:40 Prinivil PO 20 mg DAILY [facility] Administration Multivitamins/Minerals/Vitamin C 1 tab 11/09/16 10:00 11/13/16 09:40 Tab-A-Vit - PO 1 tab DAILY [facility] Administration Polyethylene Glycol 17 gm 11/09/16 10:15 11/13/16 10:07 Miralax (For Daily Use) - PO 17 gm BID [facility] Administration IMAGING: ECHO on 11/13: within normal limits EF 54% Carotid doppler on 11/12: 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 The lesions shows increased signal intensity on diffusion weighted images with corresponding low signal intensity on ADC, increased signal intensity on FLAIR images. Symmetrical abnormal signal in globus pallidus may be seen in patient with history of the hypoxic ischemic encephalopathy, hepatic encephalopathy, drug abuse. Punctate foci of restricted diffusion are seen in the bifrontal white matter, left posterior sandy radiata. Punctate foci of increased signal intensity on diffusion weighted images are seen in the right anterior periventricular white matter, right centrum semiovale, right parietal lobe white matter, not clearly seen on ADC images due to the size of the lesions. CT head on 11/11: No acute pathology LE doppler on 11/11: No DVT CXR on 11/10: Since the prior study of 11/05/2016, the right lung is slightly better aerated. There is some minimal fluid and atelectasis at the right base. There is increased fluid with atelectasis or infiltrate at the left base. There are some congestive changes. ASSESSMENT/PLAN: 56 yo M with h/o uncontrolled DMII admitted for L foot osteomyelitis. Osteomyelitis, L first toe - Afrebile, WBC normal - Cont. vanco day 6 and zosyn day 7 - Outpatient hyperbaric and follow up with Dr. Ponce Altered mental status, mild - Resolved, now at baseline - MRI shows tint infarct L subcortical - F/u neck MRA Dyspea 2/2 pleural effusion - Resolved - Lasix PRN and spirometry Normocytic anemia - Baseline ~10 - H&H stable s/p transfusion - Cont. Fe supplement - Transfuse if HGB < 7 IDDM - Cont. sliding scale and levemir decreased to 7/12 units BID HTN - Cont. norvasc 5mg daily - May start BIDIL on discharge FEN - IVF not indicated - Normal lytes - Diabetic/Sodium diet + prosource Prophylaxis - DVT: heparin - GI: not indicated Disposition - Await ID input on abx as outpatient - Outpatient appointment with Dr. Ponce set up before discharge Code status - Full Visit type - Emergency Visit Emergency Visit: No - New Patient This patient is new to me today: No - Critical Care Critical Care patient: No
--- NOTE | 2016-11-13 16:37 | PN ---
Teaching Attending Note Name of Resident: Edward Chamberlain ATTENDING PHYSICIAN STATEMENT I saw and evaluated the patient. I reviewed the resident's note and discussed the case with the resident. I agree with the resident's findings and plan as documented. SUBJECTIVE: Patient has no complaints. OBJECTIVE: Vital Signs Period Temp Pulse Resp BP Sys/Lopez Pulse Ox Last 24 Hr 97.6 F-99.2 F 97-102 18-20 152-177/79-103 97 HEART: S1S2, RRR LUNGS: Clear ABDOMEN: Soft, non-tender, non-distended, normal BS EXTREMITIES: No edema, s/p left 1st toe amputation ASSESSMENT AND PLAN: This is a 56-year-old man with a history of type 2 DM, PAD who was admitted for left 1st toe osteomyelitis. 1. Sepsis secondary to osteomyelitis of left 1st toe, possible pneumonia - s/p left 1st toe/partial ray amputation 10/30, excisional debridement of left foot 11/05 - Continue Zosyn, Vancomycin - Wound VAC removed - Plan for outpatient hyperbaric treatment 2. Acute metabolic encephalopathy - Likely secondary to infection - Improving - MRI of brain: Symmetrical foci of restricted diffusion are seen on diffusion-weighted images in the region of the genu internal capsule, globus pallidus, with additional foci of restrictive changes in the posterior limb of internal capsule. The lesions shows increased signal intensity on diffusion weighted images with corresponding low signal intensity on ADC, increased signal intensity on FLAIR images. Symmetrical abnormal signal in globus pallidus may be seen in patient with history of the hypoxic ischemic encephalopathy, hepatic encephalopathy, drug abuse. Punctate foci of restricted diffusion are seen in the bifrontal white matter, left posterior sandy radiata. Punctate foci of increased signal intensity on diffusion weighted images are seen in the right anterior periventricular white matter, right centrum semiovale, right parietal lobe white matter, not clearly seen on ADC images due to the size of the lesions. 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 Normal LA - MRA of neck 3. Fluid overload - Improved with Lasix IV 4. Acute anemia likely secondary to sepsis - Transfused 4 units PRBCs this admission - Hemoglobin stable - Continue ferrous sulfate - Transfuse for Hgb<7.0 5. Anemia secondary to chronic illness 6. Acute hypoxic respiratory failure - Improved 7. Type 2 DM, uncontrolled - Continue Levemir, Novolog sliding scale 8. PAD, history of LLE angioplasty - Continue Plavix 9. HTN - Continue Lisinopril, Norvasc
[2016-11-14] MEDS: ALBUTEROL SO4 2.5/IPRATROPIUM 0.5 INH SOL 3 ML VIAL.NEB. NEB SCH ×4 (06:05→23:21)
[2016-11-14] MEDS: HEPARIN NA (PORCINE) 5,000 UNITS/ML 1ML VIAL SQ SCH ×3 (06:26→22:59)
[2016-11-14] MEDS: INSULIN SLIDING SCALE (NOVOLOG) 1 VIAL SQ SCH ×4 (06:26→23:12)
[2016-11-14] MEDS: DOCUSATE SODIUM 100 MG CAPSULE (FP) PO SCH ×3 (06:26→23:12)
[2016-11-14] MEDS: INSULIN DETEMIR 100 UNITS/ML MDV SQ SCH ×2 (07:09→22:58)
[2016-11-14] MEDS: AMINO ACIDS/PROTEIN HYDROLYS 30 ML LIQUID.PKT PO SCH ×2 (09:24→17:13)
[2016-11-14] MEDS: FERROUS SO4 325 MG TABLET (FP) PO SCH ×2 (09:24→17:13)
--- NOTE | 2016-11-14 10:08 | PN ---
Progress Note (short form) - Note Progress Note: Vascular Surgery- Dr. Ponce Patient seen and examined. Patient states he is doing well, denies pain. Denies fever/chills. Last Vital Signs Temp Pulse Resp BP Pulse Ox 99.0 F 102 H 20 147/82 96 11/14/16 10:00 11/14/16 10:00 11/14/16 10:00 11/14/16 10:00 11/13/16 21:00 CBC, BMP 11/13/16 07:30 11/11/16 10:31 Exam: Gen: NAD LLE: left foot wet to dry dressing replaced on rounds, medial aspect still with granulation tissue, plantar aspect still with some macerated tissue, dorsal aspect with superficial area of eschar unchanged, no purulent drainage, erythema , or odor Problem List - Problems (1) Gangrenous toe Assessment/Plan: s/p debridement and washout of left foot for gangrene Continue IV abx Wet to dry dressing changed on rounds, patient tolerated well Consider replacing VAC tomorrow Discussed with Dr. Ponce hyperbaric tx as outpt Code(s): I96 - GANGRENE, NOT ELSEWHERE CLASSIFIED
--- NOTE | 2016-11-14 10:12 | PN ---
Progress Note, Physician Chief Complaint: Neuro input appreciated on MRI review Echo looks ok, normal LV Holter in progress Awaits MRA carotids - Current Medication List Current Medications: Active Medications Acetaminophen (Tylenol -) 650 mg PO Q4H PRN PRN Reason: FEVER OR PAIN Last Admin: 11/11/16 08:36 Dose: 650 mg Albuterol/Ipratropium (Duoneb -) 1 amp NEB QIDR [facility] Last Admin: 11/14/16 06:05 Dose: Not Given Albuterol/Ipratropium (Duoneb -) 1 amp NEB Q4H PRN PRN Reason: SHORTNESS OF BREATH Last Admin: 11/11/16 10:10 Dose: 1 amp Amino Acids (Prosource No Carb Liquid Pkt) 30 ml PO BID@0800,1730 [facility] Last Admin: 11/14/16 09:24 Dose: 30 ml Amlodipine Besylate (Norvasc -) 10 mg PO DAILY [facility] Last Admin: 11/13/16 09:40 Dose: 10 mg Ascorbic Acid (Vitamin C -) 500 mg PO DAILY [facility] Last Admin: 11/13/16 09:41 Dose: 500 mg Clopidogrel Bisulfate (Plavix -) 75 mg PO DAILY [facility] Last Admin: 11/13/16 09:40 Dose: 75 mg Docusate Sodium (Colace -) 100 mg PO TID [facility] Last Admin: 11/14/16 06:26 Dose: 100 mg Ferrous Sulfate (Feosol -) 325 mg PO BIDWM [facility] Last Admin: 11/14/16 09:24 Dose: 325 mg Guaifenesin (Robitussin Dm -) 5 ml PO Q6H PRN PRN Reason: COUGH Last Admin: 11/09/16 04:18 Dose: 5 ml Heparin Sodium (Porcine) (Heparin -) 5,000 unit SQ TID [facility] Last Admin: 11/14/16 06:26 Dose: 5,000 unit Vancomycin HCl 1,500 mg/ (Dextrose) 500 mls @ 166.667 mls/hr IVPB BID [facility] Last Admin: 11/13/16 21:27 Dose: 166.667 mls/hr Insulin Aspart (Novolog Vial Sliding Scale -) 1 vial SQ ACHS [facility] PRN Reason: Protocol Last Admin: 11/14/16 06:26 Dose: Not Given Insulin Detemir (Levemir Vial) 7 units SQ HS [facility] Last Admin: 11/13/16 21:27 Dose: 7 units Insulin Detemir (Levemir Vial) 12 units SQ AM [facility] Last Admin: 11/14/16 07:09 Dose: 12 units Lisinopril (Prinivil) 20 mg PO DAILY [facility] Last Admin: 11/13/16 09:40 Dose: 20 mg Multivitamins/Minerals/Vitamin C (Tab-A-Vit -) 1 tab PO DAILY [facility] Last Admin: 11/13/16 09:40 Dose: 1 tab Polyethylene Glycol (Miralax (For Daily Use) -) 17 gm PO BID [facility] Last Admin: 11/13/16 21:27 Dose: 17 gm - Objective Vital Signs: Vital Signs Temperature 98 F 11/14/16 01:42 Pulse Rate 100 H 11/14/16 01:42 Respiratory Rate 22 11/14/16 01:42 Blood Pressure 152/86 11/14/16 01:42 O2 Sat by Pulse Oximetry (%) 96 11/13/16 21:00 Constitutional: Yes: No Distress, Calm Eyes: Yes: Conjunctiva Clear Cardiovascular: Yes: Regular Rate and Rhythm Respiratory: Yes: CTA Bilaterally Gastrointestinal: Yes: Soft (non-tender) Edema: Yes Edema: LLE: Trace, RLE: Trace Neurological: Yes: Alert Labs: CBC, BMP 11/13/16 07:30 11/11/16 10:31 INR, PTT INR 1.36 (0.82-1.09) H 10/24/16 07:50 Problem List - Problems (1) Gangrenous toe Code(s): I96 - GANGRENE, NOT ELSEWHERE CLASSIFIED (2) Type 2 diabetes mellitus with diabetic neuropathy, unspecified Code(s): E11.40 - TYPE 2 DIABETES MELLITUS WITH DIABETIC NEUROPATHY, UNSP Qualifiers: Diabetes mellitus halfway insulin use: unspecified halfway insulin use status Qualified Code(s): E11.40 - Type 2 diabetes mellitus with diabetic neuropathy, unspecified (3) Hypertension Code(s): I10 - ESSENTIAL (PRIMARY) HYPERTENSION Qualifiers: Hypertension type: essential hypertension Qualified Code(s): I10 - Essential (primary) hypertension (4) CVA (cerebral vascular accident) Code(s): I63.9 - CEREBRAL INFARCTION, UNSPECIFIED Qualifiers: CVA mechanism: unspecified Qualified Code(s): I63.9 - Cerebral infarction, unspecified (5) Murmur Code(s): R01.1 - CARDIAC MURMUR, UNSPECIFIED Assessment/Plan Problem List - Problems (1) Gangrenous toe Assessment/Plan: -s/p debridement and amputation -VAC in place -further Rx as per Vascular -Need to clarify details of PAD LLE if possible -Continue Plavix Code(s): I96 - GANGRENE, NOT ELSEWHERE CLASSIFIED (2) Type 2 diabetes mellitus with diabetic neuropathy, unspecified Assessment/Plan: -Check Lipids -Continue DIAZ-I (on lisinopril), would titrate up to 30mg daily Code(s): E11.40 - TYPE 2 DIABETES MELLITUS WITH DIABETIC NEUROPATHY, UNSP Qualifiers: Diabetes mellitus halfway insulin use: unspecified halfway insulin use status Qualified Code(s): E11.40 - Type 2 diabetes mellitus with diabetic neuropathy, unspecified (3) Hypertension Assessment/Plan: -Remains mildly above goal -Would titrate lisinopril to 30mg daily Code(s): I10 - ESSENTIAL (PRIMARY) HYPERTENSION Qualifiers: Hypertension type: essential hypertension Qualified Code(s): I10 - Essential (primary) hypertension (4) CVA (cerebral vascular accident) Assessment/Plan: - Holter pending. Echo w/ normal LV function and no source of emboli (TTE) -Carotids with b/l plaque, no indication of hemodynamically significant stenosis. -Continue Plavix -Statin for LDL goal 70mg/dl -Neuro note reviewed, MRI changes more c/w metabolic changes rather than acute CVAs Small old infarct noted. Code(s): I63.9 - CEREBRAL INFARCTION, UNSPECIFIED Qualifiers: CVA mechanism: unspecified Qualified Code(s): I63.9 - Cerebral infarction, unspecified (5) Murmur Assessment/Plan: -Echo confirms due to mild TR -No sig PHTN -Normal LV function. Code(s): R01.1 - CARDIAC MURMUR, UNSPECIFIED
[2016-11-14] MEDS: MULTIVITAMINS (DAILY MVI) TABLET (FP) PO SCH (11:02)
[2016-11-14] MEDS: ASCORBIC ACID 500 MG TABLET (FP) PO SCH (11:02)
[2016-11-14] MEDS: LISINOPRIL 20 MG TABLET (FP) PO SCH (11:02)
[2016-11-14] MEDS: amLODIPine BESYLATE 10 MG TABLET (FP) PO SCH (11:02)
[2016-11-14] MEDS: CLOPIDOGREL BISULFATE 75 MG TABLET (FP) PO SCH (11:02)
[2016-11-14] MEDS: POLYETHYLENE GLYCOL 3350 119 GM BTL PO SCH ×2 (11:03→22:57)
[2016-11-14] MEDS: VANCOMYCIN 1,500 MG in DEXTROSE 5%-WATER - 500 ML IVPB SCH ×2 (11:03→22:56)
--- NOTE | 2016-11-14 15:02 | PN ---
Teaching Attending Note Name of Resident: Edward Chamberlain ATTENDING PHYSICIAN STATEMENT I saw and evaluated the patient. I reviewed the resident's note and discussed the case with the resident. I agree with the resident's findings and plan as documented. SUBJECTIVE: Patient has no complaints. His is concerned about his mental status. OBJECTIVE: Vital Signs Period Temp Pulse Resp BP Sys/Lopez Pulse Ox Last 24 Hr 98 F-100.1 F 100-109 20-22 145-160/82-87 96 HEART: S1S2, tachycardic LUNGS: Clear ABDOMEN: Soft, non-tender, non-distended, normal BS EXTREMITIES: No edema, s/p left 1st toe amputation NEUROLOGICAL: Alert, oriented, slow to respond verbally but otherwise non-focal ASSESSMENT AND PLAN: This is a 56-year-old man with a history of type 2 DM, PAD who was admitted for left 1st toe osteomyelitis. 1. Sepsis secondary to osteomyelitis of left 1st toe, possible pneumonia - s/p left 1st toe/partial ray amputation 10/30, excisional debridement of left foot 11/05 - Continue Zosyn, Vancomycin - Continue wound care - Wound VAC removed - Plan for outpatient hyperbaric treatment 2. Acute metabolic encephalopathy - Likely secondary to infection - Improving - MRI of brain: Symmetrical foci of restricted diffusion are seen on diffusion-weighted images in the region of the genu internal capsule, globus pallidus, with additional foci of restrictive changes in the posterior limb of internal capsule. The lesions shows increased signal intensity on diffusion weighted images with corresponding low signal intensity on ADC, increased signal intensity on FLAIR images. Symmetrical abnormal signal in globus pallidus may be seen in patient with history of the hypoxic ischemic encephalopathy, hepatic encephalopathy, drug abuse. Punctate foci of restricted diffusion are seen in the bifrontal white matter, left posterior sandy radiata. Punctate foci of increased signal intensity on diffusion weighted images are seen in the right anterior periventricular white matter, right centrum semiovale, right parietal lobe white matter, not clearly seen on ADC images due to the size of the lesions. 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 Normal LA - MRA of neck 3. Fluid overload - Improved with Lasix IV 4. Acute anemia likely secondary to sepsis - Transfused 4 units PRBCs this admission - Hemoglobin stable - Continue ferrous sulfate - Transfuse for Hgb<7.0 5. Anemia secondary to chronic illness 6. Acute hypoxic respiratory failure - Improved 7. Type 2 DM, uncontrolled - Continue Levemir, Novolog sliding scale 8. PAD, history of LLE angioplasty - Continue Plavix 9. HTN - Continue Lisinopril, Norvasc
--- NOTE | 2016-11-14 15:23 | PN ---
Progress Note (short form) - Note Progress Note: Vascular Surgery Pt seen and examined. VAC dressing applied with adaptic and white foam over tendon. Wound looks very good. Clean , pink. We are deciding if pt is going to rehab. If not, he will come everyday for HBO. We are working on authorization. Pt might need picc line and iv antibiotics. We will have to see if pt can get VNS for vac changes. Will cont to follow. Wound improving. Luis Manuel Ponce DO
--- NOTE | 2016-11-14 15:27 | HOL ---
Hook-up date: 2016-11-13 12:01:00 Duration: 24:00:00 Test Indications: CVA Medications: [id number] QRS complexes 17 Ventricular ectopics which represent <1 % of total QRS comp. 50 Supraventricular ectopics which represent <1 % of total QRS comp. * Paced QRS complexs which represent % of total QRS comp. * % of Time Classified as Noise VENTRICULAR ECTOPY 12 Isolated 0 Bigeminal Cycles 1 Couplets 1 Runs 3 Beats in Runs 3 Beats LONGEST at 120 BPM at 02:48:39 2016-11-14 3 Beats FASTEST at 120 BPM at 02:48:39 2016-11-14 SUPRAVENTRICULAR ECTOPY 47 Isolated 0 Couplets 1 Runs 3 Beats in Runs 3 Beats LONGEST at 138 BPM at 20:49:55 2016-11-13 3 Beats FASTEST at 138 BPM at 20:49:55 2016-11-13 HEART RATES 92 MIN at 06:03:05 2016-11-14 102 AVG 115 MAX at 19:53:27 2016-11-13 LONGEST RR 0.848 secs at 02:48:40 2016-11-14 SCANNED BY LEON 11/14/2016 1. Baseline rhythm is sinus with avg hr 102 and range 92-115. 2. No significant bradycardia/pauses. 3. Rare PVCs, one triplet. 4. Rare PACs, one triplet. 5. No VF, Afib, Aflutter detected. 6. No diary submitted. Confirmed by AUBREY POZO MD ([id number]) on 11/14/2016 3:27:09 PM Referred By: Overread By: AUBREY POZO MD
--- NOTE | 2016-11-14 17:27 | PN ---
Physical Exam: SUBJECTIVE: Patient seen and examined at bedside. He has no complaint. Denies chest pain, fever, chills, urinary or bowel symptoms. Per chart, he had 1 measurement of elevated temp of 100.1F. OBJECTIVE: Vital Signs Period Temp Pulse Resp BP Sys/Lopez Pulse Ox Last 24 Hr 98 F-100.1 F 97-109 20-22 145-161/82-90 96-96 GENERAL: Awake, alert, and oriented to time, person only, able to speak full sentences, no respiratory distress EYES: sclera anicteric, conjunctiva clear ENT: oropharynx clear without exudates LUNGS: CTAB HEART: Tachycardic, S1 and S2 present,No murmur ABDOMEN: +bs, soft, non-tender EXTREMITIES: L foot wound vac removed, dressing in place Laboratory Results - last 24 hr 11/13/16 11/13/16 11/14/16 17:17 21:19 05:40 POC Glucometer 185 207 155 11/14/16 11/14/16 12:12 16:51 POC Glucometer 134 145 Active Medications Generic Name Dose Route Start Last Admin Trade Name Freq PRN Reason Stop Dose Admin Acetaminophen 650 mg 11/05/16 14:11 11/11/16 08:36 Tylenol - PO 650 mg Q4H PRN Administration FEVER OR PAIN Albuterol/Ipratropium 1 amp 11/05/16 18:00 11/14/16 12:04 Duoneb - NEB 1 amp QIDR SANGEETHA Administration Albuterol/Ipratropium 1 amp 11/11/16 08:51 11/11/16 10:10 Duoneb - NEB 1 amp Q4H PRN Administration SHORTNESS OF BREATH Amino Acids 30 ml 11/08/16 17:30 11/14/16 17:13 Prosource No Carb Liquid Pkt PO 30 ml BID@0800,1730 SANGEETHA Administration Amlodipine Besylate 10 mg 11/13/16 10:00 11/14/16 11:02 Norvasc - PO 10 mg DAILY SANGEETHA Administration Ascorbic Acid 500 mg 11/09/16 10:00 11/14/16 11:02 Vitamin C - PO 500 mg DAILY SANGE[facility]HA Administration Clopidogrel Bisulfate 75 mg 11/06/16 10:00 11/14/16 11:02 Plavix - PO 75 mg DAILY SANGE[facility]HA Administration Docusate Sodium 100 mg 11/05/16 22:00 11/14/16 15:09 Colace - PO Not Given TID SANGEETHA Ferrous Sulfate 325 mg 11/05/16 17:30 11/14/16 17:13 Feosol - PO 325 mg BIDWM SANGEETHA Administration Guaifenesin 5 ml 11/09/16 04:15 11/09/16 04:18 Robitussin Dm - PO 5 ml Q6H PRN Administration COUGH Heparin Sodium (Porcine) 5,000 unit 11/14/16 06:15 11/14/16 15:09 Heparin - SQ 5,000 unit TID SANGEETHA Administration Vancomycin HCl 1,500 mg/ 500 mls @ 166.667 mls/hr 11/10/16 10:24 11/14/16 11:03 Dextrose IVPB 166.667 mls/hr BID SANGEETHA Administration Insulin Aspart 1 vial 11/05/16 16:30 11/14/16 17:11 Novolog Vial Sliding Scale - SQ Not Given ACHS [facility] Protocol Insulin Detemir 7 units 11/13/16 08:04 11/13/16 21:27 Levemir Vial SQ 7 units HS SANGEETHA Administration Insulin Detemir 12 units 11/13/16 08:04 11/14/16 07:09 Levemir Vial SQ 12 units AM SANGEETHA Administration Lisinopril 20 mg 11/06/16 10:00 11/14/16 11:02 Prinivil PO 20 mg DAILY S[facility] Administration Multivitamins/Minerals/Vitamin C 1 tab 11/09/16 10:00 11/14/16 11:02 Tab-A-Vit - PO 1 tab DAILY [facility] Administration Polyethylene Glycol 17 gm 11/09/16 10:15 11/14/16 11:03 Miralax (For Daily Use) - PO 17 gm BID SANGEETHA Administration IMAGING: ECHO on 11/13: within normal limits EF 54% Carotid doppler on 11/12: 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 The lesions shows increased signal intensity on diffusion weighted images with corresponding low signal intensity on ADC, increased signal intensity on FLAIR images. Symmetrical abnormal signal in globus pallidus may be seen in patient with history of the hypoxic ischemic encephalopathy, hepatic encephalopathy, drug abuse. Punctate foci of restricted diffusion are seen in the bifrontal white matter, left posterior sandy radiata. Punctate foci of increased signal intensity on diffusion weighted images are seen in the right anterior periventricular white matter, right centrum semiovale, right parietal lobe white matter, not clearly seen on ADC images due to the size of the lesions. CT head on 11/11: No acute pathology LE doppler on 11/11: No DVT CXR on 11/10: Since the prior study of 11/05/2016, the right lung is slightly better aerated. There is some minimal fluid and atelectasis at the right base. There is increased fluid with atelectasis or infiltrate at the left base. There are some congestive changes. ASSESSMENT/PLAN: 56 yo M with h/o uncontrolled DMII admitted for L foot osteomyelitis. Osteomyelitis, L first toe - Cont. to improve clinically - Cont. vanco day 7 - Awaiting ID input on fdc abx as outpatient - Outpatient hyperbaric and follow up with Dr. Ponce Altered mental status, mild - Resolved, now at baseline - Likely toxic metabolic - MRI shows tint infarct L subcortical - F/u neck MRA Dyspea 2/2 pleural effusion - Resolved - Lasix PRN and spirometry Normocytic anemia - Baseline ~10 - H&H stable s/p transfusion - Cont. Fe supplement - Transfuse if HGB < 7 IDDM - Cont. sliding scale and levemir decreased to 7/12 units BID HTN - Cont. norvasc 5mg daily and lisnopril 20mg daily - May start BIDIL on discharge FEN - IVF not indicated - Normal lytes - Diabetic/Sodium diet + prosource Prophylaxis - DVT: heparin - GI: not indicated Disposition - Await ID input on abx as outpatient - Outpatient appointment with Dr. Ponce set up before discharge Code status - Full Visit type - Emergency Visit Emergency Visit: No - New Patient This patient is new to me today: No - Critical Care Critical Care patient: No
--- NOTE | 2016-11-14 18:02 | PN ---
Progress Note, Physician History of Present Illness: patient stable going for further neuro work up - Current Medication List Current Medications: Active Medications Acetaminophen (Tylenol -) 650 mg PO Q4H PRN PRN Reason: FEVER OR PAIN Last Admin: 11/11/16 08:36 Dose: 650 mg Albuterol/Ipratropium (Duoneb -) 1 amp NEB QIDR [facility] Last Admin: 11/14/16 12:04 Dose: 1 amp Albuterol/Ipratropium (Duoneb -) 1 amp NEB Q4H PRN PRN Reason: SHORTNESS OF BREATH Last Admin: 11/11/16 10:10 Dose: 1 amp Amino Acids (Prosource No Carb Liquid Pkt) 30 ml PO BID@0800,1730 [facility] Last Admin: 11/14/16 17:13 Dose: 30 ml Amlodipine Besylate (Norvasc -) 10 mg PO DAILY [facility] Last Admin: 11/14/16 11:02 Dose: 10 mg Ascorbic Acid (Vitamin C -) 500 mg PO DAILY [facility] Last Admin: 11/14/16 11:02 Dose: 500 mg Clopidogrel Bisulfate (Plavix -) 75 mg PO DAILY [facility] Last Admin: 11/14/16 11:02 Dose: 75 mg Docusate Sodium (Colace -) 100 mg PO TID [facility] Last Admin: 11/14/16 15:09 Dose: Not Given Ferrous Sulfate (Feosol -) 325 mg PO BIDWM [facility] Last Admin: 11/14/16 17:13 Dose: 325 mg Guaifenesin (Robitussin Dm -) 5 ml PO Q6H PRN PRN Reason: COUGH Last Admin: 11/09/16 04:18 Dose: 5 ml Heparin Sodium (Porcine) (Heparin -) 5,000 unit SQ TID [facility] Last Admin: 11/14/16 15:09 Dose: 5,000 unit Vancomycin HCl 1,500 mg/ (Dextrose) 500 mls @ 166.667 mls/hr IVPB BID [facility] Last Admin: 11/14/16 11:03 Dose: 166.667 mls/hr Insulin Aspart (Novolog Vial Sliding Scale -) 1 vial SQ ACHS [facility] PRN Reason: Protocol Last Admin: 11/14/16 17:11 Dose: Not Given Insulin Detemir (Levemir Vial) 7 units SQ HS [facility] Last Admin: 11/13/16 21:27 Dose: 7 units Insulin Detemir (Levemir Vial) 12 units SQ AM [facility] Last Admin: 11/14/16 07:09 Dose: 12 units Lisinopril (Prinivil) 20 mg PO DAILY [facility] Last Admin: 11/14/16 11:02 Dose: 20 mg Multivitamins/Minerals/Vitamin C (Tab-A-Vit -) 1 tab PO DAILY [facility] Last Admin: 11/14/16 11:02 Dose: 1 tab Polyethylene Glycol (Miralax (For Daily Use) -) 17 gm PO BID [facility] Last Admin: 11/14/16 11:03 Dose: 17 gm - Objective Vital Signs: Vital Signs Temperature 98.2 F 11/14/16 14:51 Pulse Rate 97 H 11/14/16 14:51 Respiratory Rate 20 11/14/16 14:51 Blood Pressure 161/90 11/14/16 14:51 O2 Sat by Pulse Oximetry (%) 96 11/14/16 09:00 Constitutional: Yes: No Distress, Calm Cardiovascular: Yes: Regular Rate and Rhythm Respiratory: Yes: Regular, CTA Bilaterally Gastrointestinal: Yes: Normal Bowel Sounds, Soft Musculoskeletal: Yes: WNL Extremities: Yes: Other Neurological: Yes: Alert, Oriented Psychiatric: Yes: Alert, Oriented Labs: CBC, BMP 11/13/16 07:30 11/11/16 10:31 INR, PTT INR 1.36 (0.82-1.09) H 10/24/16 07:50 Assessment/Plan osteo of the left toe wound infection dm fever leukocytosis wbc decreasing plan continue abx wound care rest as per neuro continue current mgmt will check vanco trough tomorrow patient will need another 10 days of abx vanco needs trough follow up and cbc esr
[2016-11-15] MEDS ORDERED: TAMSULOSIN HCL 0.4 MG CAP.ER.24H (FP) PO ONE (02:01)
--- NOTE | 2016-11-15 02:32 | HOSP ---
Subjective - Review of Symptoms Events since last encounter: called to see pt by RN who reported that pt has not voided today. Bladder scan done, 1000cc in bladder. Nurse attempted to place haider catheter but was unable to place same. Subjective: Pt c/o lower abdominal pressure. Physical Examination Vital Signs: Vital Signs Temperature 97.0 F L 11/14/16 18:35 Pulse Rate 99 H 11/14/16 18:35 Respiratory Rate 16 11/14/16 18:35 Blood Pressure 149/88 11/14/16 18:35 O2 Sat by Pulse Oximetry (%) 96 11/14/16 09:00 Gastrointestinal: Yes: Other (noted with distended bladder) Labs: CBC, BMP 11/13/16 07:30 11/11/16 10:31 Hospitalist Encounter Assessment: urinary retention - #16F haider catheter placed under aseptic technique. Minimal resistance noted at prostate but able to pass freely. Urine obtained in tubing; balloon inflated. Urine flowing freely via catheter. urine clear light yellow, no blood noted.
[2016-11-15] MEDS ORDERED: INSULIN (NOVOLOG) ASPART 100 UNITS/ML 10ML VIAL ONE (06:06)
[2016-11-15] MEDS: HEPARIN NA (PORCINE) 5,000 UNITS/ML 1ML VIAL SQ SCH ×3 (06:35→21:32)
[2016-11-15] MEDS: DOCUSATE SODIUM 100 MG CAPSULE (FP) PO SCH ×3 (06:35→21:31)
[2016-11-15] MEDS: ALBUTEROL SO4 2.5/IPRATROPIUM 0.5 INH SOL 3 ML VIAL.NEB. NEB SCH ×4 (06:48→23:33)
[2016-11-15] MEDS: INSULIN SLIDING SCALE (NOVOLOG) 1 VIAL SQ SCH ×4 (06:50→21:33)
[2016-11-15] MEDS: INSULIN DETEMIR 100 UNITS/ML MDV SQ SCH ×2 (06:52→21:32)
[2016-11-15] MEDS: AMINO ACIDS/PROTEIN HYDROLYS 30 ML LIQUID.PKT PO SCH ×2 (08:07→17:02)
[2016-11-15] MEDS: FERROUS SO4 325 MG TABLET (FP) PO SCH ×2 (08:07→17:02)
[2016-11-15] MEDS: POLYETHYLENE GLYCOL 3350 119 GM BTL PO SCH ×2 (09:36→21:34)
[2016-11-15] MEDS: LISINOPRIL 20 MG TABLET (FP) PO SCH (09:36)
[2016-11-15] MEDS: MULTIVITAMINS (DAILY MVI) TABLET (FP) PO SCH (09:36)
[2016-11-15] MEDS: amLODIPine BESYLATE 10 MG TABLET (FP) PO SCH (09:36)
[2016-11-15] MEDS: CLOPIDOGREL BISULFATE 75 MG TABLET (FP) PO SCH (09:36)
[2016-11-15] MEDS: ASCORBIC ACID 500 MG TABLET (FP) PO SCH (09:36)
--- NOTE | 2016-11-15 09:40 | PN ---
Progress Note, Physician History of Present Illness: seen and examined today in nad. episode of urinary retention last night so haider was placed. no new complaints this am. - Current Medication List Current Medications: Active Medications Acetaminophen (Tylenol -) 650 mg PO Q4H PRN PRN Reason: FEVER OR PAIN Last Admin: 11/11/16 08:36 Dose: 650 mg Albuterol/Ipratropium (Duoneb -) 1 amp NEB QIDR [facility] Last Admin: 11/15/16 06:48 Dose: 1 amp Albuterol/Ipratropium (Duoneb -) 1 amp NEB Q4H PRN PRN Reason: SHORTNESS OF BREATH Last Admin: 11/11/16 10:10 Dose: 1 amp Amino Acids (Prosource No Carb Liquid Pkt) 30 ml PO BID@0800,1730 [facility] Last Admin: 11/15/16 08:07 Dose: 30 ml Amlodipine Besylate (Norvasc -) 10 mg PO DAILY [facility] Last Admin: 11/15/16 09:36 Dose: 10 mg Ascorbic Acid (Vitamin C -) 500 mg PO DAILY [facility] Last Admin: 11/15/16 09:36 Dose: 500 mg Clopidogrel Bisulfate (Plavix -) 75 mg PO DAILY [facility] Last Admin: 11/15/16 09:36 Dose: 75 mg Docusate Sodium (Colace -) 100 mg PO TID [facility] Last Admin: 11/15/16 06:35 Dose: 100 mg Ferrous Sulfate (Feosol -) 325 mg PO BIDWM [facility] Last Admin: 11/15/16 08:07 Dose: 325 mg Guaifenesin (Robitussin Dm -) 5 ml PO Q6H PRN PRN Reason: COUGH Last Admin: 11/09/16 04:18 Dose: 5 ml Heparin Sodium (Porcine) (Heparin -) 5,000 unit SQ TID [facility] Last Admin: 11/15/16 06:35 Dose: 5,000 unit Vancomycin HCl 1,500 mg/ (Dextrose) 500 mls @ 166.667 mls/hr IVPB BID [facility] Last Admin: 11/14/16 22:56 Dose: 166.667 mls/hr Insulin Aspart (Novolog Vial Sliding Scale -) 1 vial SQ ACHS [facility] PRN Reason: Protocol Last Admin: 11/15/16 06:50 Dose: Not Given Insulin Detemir (Levemir Vial) 7 units SQ HS [facility] Last Admin: 11/14/16 22:58 Dose: 7 units Insulin Detemir (Levemir Vial) 12 units SQ AM [facility] Last Admin: 11/15/16 06:52 Dose: 12 units Lisinopril (Prinivil) 20 mg PO DAILY [facility] Last Admin: 11/15/16 09:36 Dose: 20 mg Multivitamins/Minerals/Vitamin C (Tab-A-Vit -) 1 tab PO DAILY [facility] Last Admin: 11/15/16 09:36 Dose: 1 tab Polyethylene Glycol (Miralax (For Daily Use) -) 17 gm PO BID [facility] Last Admin: 11/15/16 09:36 Dose: 17 gm - Objective Vital Signs: Vital Signs Temperature 98.3 F 11/15/16 06:00 Pulse Rate 97 H 11/15/16 06:00 Respiratory Rate 18 11/15/16 06:00 Blood Pressure 162/95 11/15/16 06:00 O2 Sat by Pulse Oximetry (%) 96 11/14/16 09:00 Constitutional: Yes: Well Nourished, No Distress, Calm Eyes: Yes: WNL, Conjunctiva Clear, EOM Intact HENT: Yes: Atraumatic, Normocephalic Neck: Yes: Supple, Trachea Midline Cardiovascular: Yes: Regular Rate and Rhythm, S1, S2. No: Bradycardia, Tachycardia, Pulse Irregular, Bruit, JVD, Gallop, Murmur, Rub, S3, S4, Varicosities Respiratory: Yes: Regular, CTA Bilaterally. No: Rales, Rhonchi, Wheezes Gastrointestinal: Yes: Normal Bowel Sounds, Soft. No: Distention, Tenderness Extremities: No: WNL Edema: No Peripheral Pulses WNL: No Neurological: Yes: Alert, Oriented Psychiatric: Yes: Alert, Oriented Labs: CBC, BMP 11/13/16 07:30 11/11/16 10:31 INR, PTT INR 1.36 (0.82-1.09) H 10/24/16 07:50 - ....Imaging Chest X-ray: Report Reviewed, Image Reviewed EKG: Report Reviewed, Image Reviewed Other: Report Reviewed, Image Reviewed Assessment/Plan 56 year old man with a history of HTN, DMII, HLD, PAD with LLE osteomyelitis and foot abscess s/p amputation L toe, CVAs, possible toxic metabolic encephalopathy with AMS. 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
--- NOTE | 2016-11-15 10:47 | PN ---
Progress Note, Physician History of Present Illness: urinary retention otherwise no issues - Current Medication List Current Medications: Active Medications Acetaminophen (Tylenol -) 650 mg PO Q4H PRN PRN Reason: FEVER OR PAIN Last Admin: 11/11/16 08:36 Dose: 650 mg Albuterol/Ipratropium (Duoneb -) 1 amp NEB QIDR [facility] Last Admin: 11/15/16 06:48 Dose: 1 amp Albuterol/Ipratropium (Duoneb -) 1 amp NEB Q4H PRN PRN Reason: SHORTNESS OF BREATH Last Admin: 11/11/16 10:10 Dose: 1 amp Amino Acids (Prosource No Carb Liquid Pkt) 30 ml PO BID@0800,1730 [facility] Last Admin: 11/15/16 08:07 Dose: 30 ml Amlodipine Besylate (Norvasc -) 10 mg PO DAILY [facility] Last Admin: 11/15/16 09:36 Dose: 10 mg Ascorbic Acid (Vitamin C -) 500 mg PO DAILY [facility] Last Admin: 11/15/16 09:36 Dose: 500 mg Clopidogrel Bisulfate (Plavix -) 75 mg PO DAILY [facility] Last Admin: 11/15/16 09:36 Dose: 75 mg Docusate Sodium (Colace -) 100 mg PO TID [facility] Last Admin: 11/15/16 06:35 Dose: 100 mg Ferrous Sulfate (Feosol -) 325 mg PO BIDWM [facility] Last Admin: 11/15/16 08:07 Dose: 325 mg Guaifenesin (Robitussin Dm -) 5 ml PO Q6H PRN PRN Reason: COUGH Last Admin: 11/09/16 04:18 Dose: 5 ml Heparin Sodium (Porcine) (Heparin -) 5,000 unit SQ TID [facility] Last Admin: 11/15/16 06:35 Dose: 5,000 unit Insulin Aspart (Novolog Vial Sliding Scale -) 1 vial SQ ACHS [facility] PRN Reason: Protocol Last Admin: 11/15/16 06:50 Dose: Not Given Insulin Detemir (Levemir Vial) 7 units SQ HS [facility] Last Admin: 11/14/16 22:58 Dose: 7 units Insulin Detemir (Levemir Vial) 12 units SQ AM [facility] Last Admin: 11/15/16 06:52 Dose: 12 units Lisinopril (Prinivil) 20 mg PO DAILY [facility] Last Admin: 11/15/16 09:36 Dose: 20 mg Multivitamins/Minerals/Vitamin C (Tab-A-Vit -) 1 tab PO DAILY [facility] Last Admin: 11/15/16 09:36 Dose: 1 tab Polyethylene Glycol (Miralax (For Daily Use) -) 17 gm PO BID [facility] Last Admin: 11/15/16 09:36 Dose: 17 gm - Objective Vital Signs: Vital Signs Temperature 98.3 F 11/15/16 06:00 Pulse Rate 97 H 11/15/16 06:00 Respiratory Rate 18 11/15/16 06:00 Blood Pressure 162/95 11/15/16 06:00 O2 Sat by Pulse Oximetry (%) 96 11/14/16 09:00 Constitutional: Yes: No Distress, Calm Cardiovascular: Yes: Regular Rate and Rhythm Respiratory: Yes: Regular, CTA Bilaterally Gastrointestinal: Yes: Normal Bowel Sounds, Soft Musculoskeletal: Yes: WNL Extremities: Yes: Other Neurological: Yes: Alert, Oriented Psychiatric: Yes: Alert, Oriented Labs: CBC, BMP 11/13/16 07:30 11/11/16 10:31 INR, PTT INR 1.36 (0.82-1.09) H 10/24/16 07:50 Assessment/Plan osteo of the left toe wound infection dm fever leukocytosis wbc decreasing plan continue abx wound care vanco trough noted vanco on hold repeat vanco level tomorrow
--- NOTE | 2016-11-15 11:10 | PN ---
Physical Exam: SUBJECTIVE: Patient seen and examined at bedside. He has no complaint. Per overnight signout , patient had urinary retention ~1L, haider was inserted. OBJECTIVE: Vital Signs Period Temp Pulse Resp BP Sys/Lopez Pulse Ox Last 24 Hr 97.0 F-98.3 F 80-99 16-20 149-162/87-95 GENERAL: AAOx3, mental status at hospital baseline, no respiratory distress EYES: sclera anicteric, conjunctiva clear ENT: oropharynx clear without exudates LUNGS: CTAB HEART: Tachycardic, S1 and S2 present,No murmur ABDOMEN: +bs, soft, non-tender EXTREMITIES: L foot wound vac in place Abnormal Lab Results 11/15/16 07:30 Vancomycin Trough 20.259 H* D Active Medications Generic Name Dose Route Start Last Admin Trade Name Freq PRN Reason Stop Dose Admin Acetaminophen 650 mg 11/05/16 14:11 11/11/16 08:36 Tylenol - PO 650 mg Q4H PRN Administration FEVER OR PAIN Albuterol/Ipratropium 1 amp 11/05/16 18:00 11/15/16 06:48 Duoneb - NEB 1 amp QIDR SANGEETHA Administration Albuterol/Ipratropium 1 amp 11/11/16 08:51 11/11/16 10:10 Duoneb - NEB 1 amp Q4H PRN Administration SHORTNESS OF BREATH Amino Acids 30 ml 11/08/16 17:30 11/15/16 08:07 Prosource No Carb Liquid Pkt PO 30 ml BID@0800,1730 [facility] Administration Amlodipine Besylate 10 mg 11/13/16 10:00 11/15/16 09:36 Norvasc - PO 10 mg DAILY [facility] Administration Ascorbic Acid 500 mg 11/09/16 10:00 11/15/16 09:36 Vitamin C - PO 500 mg DAILY [facility] Administration Clopidogrel Bisulfate 75 mg 11/06/16 10:00 11/15/16 09:36 Plavix - PO 75 mg DAILY [facility] Administration Docusate Sodium 100 mg 11/05/16 22:00 11/15/16 06:35 Colace - PO 100 mg TID S[facility]ETHA Administration Ferrous Sulfate 325 mg 11/05/16 17:30 11/15/16 08:07 Feosol - PO 325 mg BIDWM [facility]ET[facility] Administration Guaifenesin 5 ml 11/09/16 04:15 11/09/16 04:18 Robitussin Dm - PO 5 ml Q6H PRN Administration COUGH Heparin Sodium (Porcine) 5,000 unit 11/14/16 06:15 11/15/16 06:35 Heparin - SQ 5,000 unit TID [facility] Administration Insulin Aspart 1 vial 11/05/16 16:30 11/15/16 06:50 Novolog Vial Sliding Scale - SQ Not Given ACHS [facility] Protocol Insulin Detemir 7 units 11/13/16 08:04 11/14/16 22:58 Levemir Vial SQ 7 units HS [facility] Administration Insulin Detemir 12 units 11/13/16 08:04 11/15/16 06:52 Levemir Vial SQ 12 units AM [facility] Administration Lisinopril 20 mg 11/06/16 10:00 11/15/16 09:36 Prinivil PO 20 mg DAILY [facility] Administration Multivitamins/Minerals/Vitamin C 1 tab 11/09/16 10:00 11/15/16 09:36 Tab-A-Vit - PO 1 tab DAILY [facility] Administration Polyethylene Glycol 17 gm 11/09/16 10:15 11/15/16 09:36 Miralax (For Daily Use) - PO 17 gm BID [facility]ETHA Administration IMAGING: Neck MRA on 11/14: No significant stenosis. 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 The lesions shows increased signal intensity on diffusion weighted images with corresponding low signal intensity on ADC, increased signal intensity on FLAIR images. Symmetrical abnormal signal in globus pallidus may be seen in patient with history of the hypoxic ischemic encephalopathy, hepatic encephalopathy, drug abuse. Punctate foci of restricted diffusion are seen in the bifrontal white matter, left posterior sandy radiata. Punctate foci of increased signal intensity on diffusion weighted images are seen in the right anterior periventricular white matter, right centrum semiovale, right parietal lobe white matter, not clearly seen on ADC images due to the size of the lesions. CT head on 11/11: No acute pathology LE doppler on 11/11: No DVT CXR on 11/10: Since the prior study of 11/05/2016, the right lung is slightly better aerated. There is some minimal fluid and atelectasis at the right base. There is increased fluid with atelectasis or infiltrate at the left base. There are some congestive changes. ASSESSMENT/PLAN: 56 yo M with h/o uncontrolled DMII admitted for L foot osteomyelitis. Osteomyelitis, L first toe - Vanco trough therapeutic - Hold vanco dosing - Cont. wound care - CBC, ESR and CRP tomorrow lab Urinary retention - Likely 2/2 BPH - Maintain haider Altered mental status, mild - Now at hospital baseline * patient was more lucid at home per - Likely toxic metabolic - MRI shows tint infarct L subcortical Dyspea 2/2 pleural effusion - Resolved - Lasix PRN and spirometry Normocytic anemia - Baseline ~10 - H&H stable s/p transfusion - Cont. Fe supplement - Transfuse if HGB < 7 IDDM - Cont. sliding scale and levemir decreased to 7/12 units BID HTN - Cont. 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 home with PICC + VNS + hyperbaric tx - Outpatient appointment with Dr. Ponce set up before discharge Code status - Full Visit type - Emergency Visit Emergency Visit: No - New Patient This patient is new to me today: No - Critical Care Critical Care patient: No
[2016-11-15] MEDS: VANCOMYCIN 1,500 MG in DEXTROSE 5%-WATER - 500 ML IVPB SCH (12:04)
[2016-11-15] MEDS ORDERED: PICC LINE 8 ML FLUSH PROTOCOL IVPUSH PRN (13:45)
--- NOTE | 2016-11-15 14:21 | DS ---
[id number] medications for approx 20 days) and gangrenous left foot ulcer s/ p angioplasty (08/2016) presents to ED with c/o 3-4 days of left foot pain and inability to bear weight. He was found to have sepsis from osteomyelitis of left great toe. Podiatry, vascular surgery and infectious disease were consulted and decision was made to amputate the affected toe. Further debridement was done. He was treated with vancomycin and zosyn. During hospitalization, his mental status waxes and weans. CT head was negative for acute pathology. MRI of brain showed tinted infarct. Neurology stated it's more likely secondary to toxic metabolic nature. He also developed urinary retention most likely secondary to BPH. Haider was inserted and he's started on flomax 0.8mg PO daily. His blood glc was also poorly controlled. He's now on levemir 7units and 12 units daily plus sliding scale. Blood pressure is elevated but permissive HTN is allowed due to history of CVA. He's also found to have normocytic anemia with a baseline of 10 and s/p PRBC transfusion during admission. He also developed pleural effusion during his stay which was treated with lasix PRN. His vanco trough level today is therapeutic and now in stable condition to be transferred [place] a [place] [facility] facility to continue adjunct faculty for medical terminology antibiotics for osteomyelitis via PICC line. Vancomycin trough, ESR, CRP need to be check on 08/19. Haider may be discontinued on Friday after voiding trial. Arrangement must be made to come to to [facility] to receive hyperbaric treatment and vancomycin dosing and wound care. Date of Discharge: 11/15/16 Minutes to complete discharge: 45 Discharge Summary Reason For Visit: CELLULITIS Current Active Problems Gangrenous toe (Acute) Osteomyelitis (Acute) Hypertension (Chronic) Insulin dependent diabetes mellitus (Chronic) Normocytic anemia (Chronic) Urinary retention due to benign prostatic hyperplasia (Chronic) Condition: Stable - Instructions Diet, Activity, Other Instructions: Please check vanco trough next Friday and make sure it's therapeutic. May discontinue the haider next Friday. Patient also needs to be transported to [facility] for hyperbaric treatment and 5th floor wound clinic for wound care. Referrals: Annika Cedeno MD [Staff Physician] - Jacinto Pascual DO [Staff Physician] - Edvin Hernandez MD [Staff Physician] - Luis Manuel Ponce MD [Staff Physician] - Disposition: RETIREMENT FACILITY - Home Medications Comprehensive Discharge Medication List: Ambulatory Orders Clopidogrel Bisulfate [Plavix -] 75 mg PO DAILY #30 tablet 09/01/16 Acetaminophen [Tylenol .Regular Strength -] 650 mg PO Q4H PRN #0 tablet Albuterol 2.5/Ipratropium 0.5 [Duoneb -] 1 amp NEB Q4H PRN #0 amp 11/15/16 Albuterol 2.5/Ipratropium 0.5 [Duoneb -] 1 amp NEB QIDR amp 11/15/16 Amino Acids/Protein Hydrolys [Prosource No Carb Liquid Pkt] 30 ml PO BID@0800, 1730 packet 11/15/16 Amlodipine Besylate [Norvasc -] 10 mg PO DAILY tablet 11/15/16 Ascorbic Acid [Vitamin C -] 500 mg PO DAILY tablet 11/15/16 Docusate Sodium [Colace -] 100 mg PO TID tab 11/15/16 Ferrous Sulfate [Feosol] 325 mg PO BIDWM tab 11/15/16 Guaifenesin Dm [Robitussin Dm -] 5 ml PO Q6H PRN #0 bottle 11/15/16 Heparin - 5,000 unit SQ TID vial 11/15/16 Insulin (Levemir) [Levemir Vial] 7 units SQ HS ml 11/15/16 Insulin (Levemir) [Levemir Vial] 12 units SQ AM ml 11/15/16 Insulin Sliding Scale [Novolog Vial Sliding Scale -] 1 vial SQ ACHS units 11/15 Lisinopril [Prinivil] 20 mg PO DAILY tablet 11/15/16 Multivitamins [Multivit ([facility] Formulary)] 1 tab PO DAILY tab 11/15/16 Picc Line Flush [Picc Line Flush -] 8 ml IVPUSH PRN PRN #0 ml 11/15/16 Polyethylene Glycol 3350 [Miralax 119 gm Btl -] 17 gm PO BID bottle 11/15/16 Tamsulosin HCl [Flomax -] 0.8 mg PO DAILY@0830 tab 11/15/16 Vancomycin 1,500 mg IVPB BID 10 Days 11/15/16 This patient is new to me today: No Emergency Visit: No Critical Care patient: No - Discharge Referral Referred to [facility] No
[2016-11-15] MEDS ORDERED: PT OWN MED DRAWER 7, Y5N ONE (14:50)
--- NOTE | 2016-11-15 16:54 | PN ---
Teaching Attending Note Name of Resident: Edward Chamberlain ATTENDING PHYSICIAN STATEMENT I saw and evaluated the patient. I reviewed the resident's note and discussed the case with the resident. I agree with the resident's findings and plan as documented. SUBJECTIVE: Patient has no complaints. Overnight, he complained of difficulty urinating. He was found to have 1 L of urine in his bladder and a Delgado was inserted with improvement. OBJECTIVE: Vital Signs Period Temp Pulse Resp BP Sys/Lopez Pulse Ox Last 24 Hr 97.0 F-99.1 F 80-106 16-18 140-162/75-99 HEART: S1S2, RRR LUNGS: Clear ABDOMEN: Soft, non-tender, non-distended, normal BS EXTREMITIES: No edema, s/p left 1st toe amputation, wound VAC in place ASSESSMENT AND PLAN: This is a 56-year-old man with a history of type 2 DM, PAD who was admitted for left 1st toe osteomyelitis. 1. Sepsis secondary to osteomyelitis of left 1st toe, possible pneumonia - s/p left 1st toe/partial ray amputation 10/30, excisional debridement of left foot 11/05 - Vancomycin held secondary to high level - Continue wound VAC - Plan for outpatient hyperbaric treatment 2. Acute metabolic encephalopathy - Likely secondary to infection - Improving - MRI of brain: Symmetrical foci of restricted diffusion are seen on diffusion-weighted images in the region of the genu internal capsule, globus pallidus, with additional foci of restrictive changes in the posterior limb of internal capsule. The lesions shows increased signal intensity on diffusion weighted images with corresponding low signal intensity on ADC, increased signal intensity on FLAIR images. Symmetrical abnormal signal in globus pallidus may be seen in patient with history of the hypoxic ischemic encephalopathy, hepatic encephalopathy, drug abuse. Punctate foci of restricted diffusion are seen in the bifrontal white matter, left posterior sandy radiata. Punctate foci of increased signal intensity on diffusion weighted images are seen in the right anterior periventricular white matter, right centrum semiovale, right parietal lobe white matter, not clearly seen on ADC images due to the size of the lesions. 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 Normal LA - MRA of neck shows no hemodynamically significant stenosis 3. Fluid overload - Improved with Lasix IV 4. Acute anemia likely secondary to sepsis - Transfused 4 units PRBCs this admission - Hemoglobin stable - Continue ferrous sulfate - Transfuse for Hgb<7.0 5. Anemia secondary to chronic illness 6. Acute hypoxic respiratory failure - Improved 7. Type 2 DM, uncontrolled - Continue Levemir, Novolog sliding scale 8. PAD, history of LLE angioplasty - Continue Plavix 9. HTN - Continue Lisinopril, Norvasc 10. Disposition - Plan for discharge to SNF with wound VAC, outpatient hyperbaric treatment, wound clinic follow-up
[2016-11-16] MEDS: DOCUSATE SODIUM 100 MG CAPSULE (FP) PO SCH ×3 (06:12→21:41)
[2016-11-16] MEDS: HEPARIN NA (PORCINE) 5,000 UNITS/ML 1ML VIAL SQ SCH ×3 (06:12→21:41)
[2016-11-16] MEDS: INSULIN SLIDING SCALE (NOVOLOG) 1 VIAL SQ SCH ×4 (06:13→21:42)
[2016-11-16] MEDS: ALBUTEROL SO4 2.5/IPRATROPIUM 0.5 INH SOL 3 ML VIAL.NEB. NEB SCH ×5 (06:50→23:29)
[2016-11-16] MEDS: INSULIN DETEMIR 100 UNITS/ML MDV SQ SCH ×2 (07:36→21:42)
[2016-11-16 08:18] LABS: BASOPHIL 1.1 % (0-2.0); EOSINOPHIL 2.6 % (0-4.5); MCH 27.8 pg (25.7-33.7); MCHC 32.9 g/dl (32.0-35.9); MEAN CELL VOLUME 84.5 fl (80-96); MEAN PLT VOLUME 6.3 fl (7.5-11.1); NEUTROPHILS 68.3 % (42.8-82.8); PLATELET COUNT 410 K/MM3 (134-434); RDW 16.9 % (11.9-15.9); WHITE BLOOD COUNT 6.5 K/mm3 (4.0-10.0)
[2016-11-16] MEDS: TAMSULOSIN HCL 0.4 MG CAP.ER.24H (FP) PO SCH (09:15)
[2016-11-16] MEDS: amLODIPine BESYLATE 10 MG TABLET (FP) PO SCH (09:16)
[2016-11-16] MEDS: ASCORBIC ACID 500 MG TABLET (FP) PO SCH (09:16)
[2016-11-16] MEDS: FERROUS SO4 325 MG TABLET (FP) PO SCH ×2 (09:16→17:53)
[2016-11-16] MEDS: LISINOPRIL 20 MG TABLET (FP) PO SCH (09:16)
[2016-11-16] MEDS: CLOPIDOGREL BISULFATE 75 MG TABLET (FP) PO SCH (09:16)
[2016-11-16] MEDS: POLYETHYLENE GLYCOL 3350 119 GM BTL PO SCH ×2 (09:16→21:42)
[2016-11-16] MEDS: AMINO ACIDS/PROTEIN HYDROLYS 30 ML LIQUID.PKT PO SCH ×2 (09:16→17:54)
[2016-11-16] MEDS: MULTIVITAMINS (DAILY MVI) TABLET (FP) PO SCH (09:16)
--- NOTE | 2016-11-16 10:46 | PN ---
Physical Exam: SUBJECTIVE: Patient seen and examined OBJECTIVE: Vital Signs Period Temp Pulse Resp BP Sys/Lopez Pulse Ox Last 24 Hr 98.4 F-99.0 F 88-102 18-20 147-155/75-92 96 GENERAL: The patient is awake, alert, and fully oriented, in no acute distress. HEAD: Normal with no signs of trauma. EYES: PERRL, extraocular movements intact, sclera anicteric, conjunctiva clear. No ptosis. ENT: Ears normal, nares patent, oropharynx clear without exudates, moist mucous membranes. NECK: Trachea midline, full range of motion, supple. LUNGS: Breath sounds equal, clear to auscultation bilaterally, no wheezes, no crackles, no accessory muscle use. HEART: Regular rate and rhythm, S1, S2 without murmur, rub or gallop. ABDOMEN: Soft, nontender, nondistended, normoactive bowel sounds, no guarding, no rebound, no hepatosplenomegaly, no masses. EXTREMITIES: 2+ pulses, warm, well-perfused, no edema. NEUROLOGICAL: Cranial nerves II through XII grossly intact. Normal speech, gait not observed. PSYCH: Normal mood, normal affect. SKIN: Warm, dry, normal turgor, no rashes or lesions noted Laboratory Results - last 24 hr 11/15/16 11/15/16 11/15/16 11:13 17:09 21:29 WBC RBC Hgb Hct MCV MCHC RDW Plt Count MPV Neutrophils % Lymphocytes % Monocytes % Eosinophils % Basophils % POC Glucometer 124 163 203 C-Reactive Protein Random Vancomycin 11/16/16 11/16/16 11/16/16 06:02 07:00 07:00 WBC RBC Hgb Hct MCV MCHC RDW Plt Count MPV Neutrophils % Lymphocytes % Monocytes % Eosinophils % Basophils % POC Glucometer 101 C-Reactive Protein 1.9 H D Random Vancomycin 7.204 11/16/16 07:00 WBC 6.5 RBC 2.83 L Hgb 7.9 L Hct 24.0 L MCV 84.5 MCHC 32.9 RDW 16.9 H Plt Count 410 MPV 6.3 L Neutrophils % 68.3 Lymphocytes % 20.8 D Monocytes % 7.2 Eosinophils % 2.6 Basophils % 1.1 POC Glucometer C-Reactive Protein Random Vancomycin Active Medications Generic Name Dose Route Start Last Admin Trade Name Freq PRN Reason Stop Dose Admin Acetaminophen 650 mg 11/05/16 14:11 11/11/16 08:36 Tylenol - PO 650 mg Q4H PRN Administration FEVER OR PAIN Albuterol/Ipratropium 1 amp 11/05/16 18:00 11/16/16 06:50 Duoneb - NEB Not Given QIDR SANGEETHA Albuterol/Ipratropium 1 amp 11/11/16 08:51 11/11/16 10:10 Duoneb - NEB 1 amp Q4H PRN Administration SHORTNESS OF BREATH Amino Acids 30 ml 11/08/16 17:30 11/16/16 09:16 Prosource No Carb Liquid Pkt PO 30 ml BID@0800,1730 SANGEETHA Administration Amlodipine Besylate 10 mg 11/13/16 10:00 11/16/16 09:16 Norvasc - PO 10 mg DAILY SANGEETHA Administration Ascorbic Acid 500 mg 11/09/16 10:00 11/16/16 09:16 Vitamin C - PO 500 mg DAILY SANGEETHA Administration Clopidogrel Bisulfate 75 mg 11/06/16 10:00 11/16/16 09:16 Plavix - PO 75 mg DAILY SANGEETHA Administration Docusate Sodium 100 mg 11/05/16 22:00 11/16/16 06:12 Colace - PO 100 mg TID SANGEETHA Administration Ferrous Sulfate 325 mg 11/05/16 17:30 11/16/16 09:16 Feosol - PO 325 mg BIDWM SANGEETHA Administration Guaifenesin 5 ml 11/09/16 04:15 11/09/16 04:18 Robitussin Dm - PO 5 ml Q6H PRN Administration COUGH Heparin Sodium (Porcine) 5,000 unit 11/14/16 06:15 11/16/16 06:12 Heparin - SQ 5,000 unit TID SANGEETHA Administration IV Flush 8 ml 11/15/16 13:45 Picc Line Flush IVPUSH PRN PRN Protocol Insulin Aspart 1 vial 11/05/16 16:30 11/16/16 06:13 Novolog Vial Sliding Scale - SQ Not Given ACHS [facility] Protocol Insulin Detemir 7 units 11/13/16 08:04 11/15/16 21:32 Levemir Vial SQ 7 units HS SANGEETHA Administration Insulin Detemir 12 units 11/13/16 08:04 11/16/16 07:36 Levemir Vial SQ 12 units AM SANGEETHA Administration Lisinopril 20 mg 11/06/16 10:00 11/16/16 09:16 Prinivil PO 20 mg DAILY SANGEETHA Administration Multivitamins/Minerals/Vitamin C 1 tab 11/09/16 10:00 11/16/16 09:16 Tab-A-Vit - PO 1 tab DAILY SANGEETHA Administration Polyethylene Glycol 17 gm 11/09/16 10:15 11/16/16 09:16 Miralax (For Daily Use) - PO 17 gm BID SANGEETHA Administration Tamsulosin HCl 0.8 mg 11/16/16 08:30 11/16/16 09:15 Flomax - PO 0.8 mg DAILY@0830 SANGEETHA Administration ASSESSMENT/PLAN: This is a 56-year-old man with a history of type 2 DM, PAD who was admitted for left 1st toe osteomyelitis. 1. Sepsis secondary to osteomyelitis of left 1st toe, possible pneumonia - s/p left 1st toe/partial ray amputation 10/30, excisional debridement of left foot 11/05 - Vancomycin level better - will resume - Continue wound VAC - Plan for outpatient hyperbaric treatment 2. Acute metabolic encephalopathy - Likely secondary to infection - Improving - MRI of brain: Symmetrical foci of restricted diffusion are seen on diffusion-weighted images in the region of the genu internal capsule, globus pallidus, with additional foci of restrictive changes in the posterior limb of internal capsule. The lesions shows increased signal intensity on diffusion weighted images with corresponding low signal intensity on ADC, increased signal intensity on FLAIR images. Symmetrical abnormal signal in globus pallidus may be seen in patient with history of the hypoxic ischemic encephalopathy, hepatic encephalopathy, drug abuse. Punctate foci of restricted diffusion are seen in the bifrontal white matter, left posterior sandy radiata. Punctate foci of increased signal intensity on diffusion weighted images are seen in the right anterior periventricular white matter, right centrum semiovale, right parietal lobe white matter, not clearly seen on ADC images due to the size of the lesions. 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 Normal LA - MRA of neck shows no hemodynamically significant stenosis 3. Fluid overload - Improved with Lasix IV 4. Acute anemia likely secondary to sepsis - Transfused 4 units PRBCs this admission - Continue ferrous sulfate - Transfuse for Hgb<7.0 5. Anemia secondary to chronic illness 6. Acute hypoxic respiratory failure - Improved 7. Type 2 DM, uncontrolled - Continue Levemir, Novolog sliding scale 8. PAD, history of LLE angioplasty - Continue Plavix 9. HTN - Continue Lisinopril, Norvasc 10. Urinary retention - Delgado discontinued - Continue Flomax 11. Disposition - Plan for discharge to SNF with wound VAC, outpatient hyperbaric treatment, wound clinic follow-up Visit type - Emergency Visit Emergency Visit: Yes ED Registration Date: 10/23/16 Care time: The patient presented to the Emergency Department on the above date and was hospitalized for further evaluation of their emergent condition. - New Patient This patient is new to me today: No - Critical Care Critical Care patient: No - Discharge Referral Referred to [facility] No
[2016-11-16] MEDS ORDERED: VANCOMYCIN 1,250 MG in DEXTROSE 5%-WATER - 250 ML IVPB ONE (11:30)
[2016-11-16 12:51] LABS: ERYTHROCYTE SEDIMENTATION RATE 60 mm/hr (0-20)
--- NOTE | 2016-11-16 18:46 | PN ---
Progress Note, Physician History of Present Illness: stable no issues no new events - Current Medication List Current Medications: Active Medications Acetaminophen (Tylenol -) 650 mg PO Q4H PRN PRN Reason: FEVER OR PAIN Last Admin: 11/11/16 08:36 Dose: 650 mg Albuterol/Ipratropium (Duoneb -) 1 amp NEB QIDR [facility] Last Admin: 11/16/16 11:22 Dose: Not Given Albuterol/Ipratropium (Duoneb -) 1 amp NEB Q4H PRN PRN Reason: SHORTNESS OF BREATH Last Admin: 11/11/16 10:10 Dose: 1 amp Amino Acids (Prosource No Carb Liquid Pkt) 30 ml PO BID@0800,1730 [facility] Last Admin: 11/16/16 17:54 Dose: 30 ml Amlodipine Besylate (Norvasc -) 10 mg PO DAILY [facility] Last Admin: 11/16/16 09:16 Dose: 10 mg Ascorbic Acid (Vitamin C -) 500 mg PO DAILY [facility] Last Admin: 11/16/16 09:16 Dose: 500 mg Clopidogrel Bisulfate (Plavix -) 75 mg PO DAILY [facility] Last Admin: 11/16/16 09:16 Dose: 75 mg Docusate Sodium (Colace -) 100 mg PO TID [facility] Last Admin: 11/16/16 13:57 Dose: 100 mg Ferrous Sulfate (Feosol -) 325 mg PO BIDWM [facility] Last Admin: 11/16/16 17:53 Dose: 325 mg Guaifenesin (Robitussin Dm -) 5 ml PO Q6H PRN PRN Reason: COUGH Last Admin: 11/09/16 04:18 Dose: 5 ml Heparin Sodium (Porcine) (Heparin -) 5,000 unit SQ TID [facility] Last Admin: 11/16/16 13:57 Dose: 5,000 unit IV Flush (Picc Line Flush) 8 ml IVPUSH PRN PRN PRN Reason: Protocol Insulin Aspart (Novolog Vial Sliding Scale -) 1 vial SQ ACHS [facility] PRN Reason: Protocol Last Admin: 11/16/16 17:54 Dose: 2 units Insulin Detemir (Levemir Vial) 7 units SQ HS [facility] Last Admin: 11/15/16 21:32 Dose: 7 units Insulin Detemir (Levemir Vial) 12 units SQ AM [facility] Last Admin: 11/16/16 07:36 Dose: 12 units Lisinopril (Prinivil) 20 mg PO DAILY [facility] Last Admin: 11/16/16 09:16 Dose: 20 mg Multivitamins/Minerals/Vitamin C (Tab-A-Vit -) 1 tab PO DAILY [facility] Last Admin: 11/16/16 09:16 Dose: 1 tab Polyethylene Glycol (Miralax (For Daily Use) -) 17 gm PO BID [facility] Last Admin: 11/16/16 09:16 Dose: 17 gm Tamsulosin HCl (Flomax -) 0.8 mg PO DAILY@0830 [facility] Last Admin: 11/16/16 09:15 Dose: 0.8 mg - Objective Vital Signs: Vital Signs Temperature 97.8 F 11/16/16 14:53 Pulse Rate 99 H 11/16/16 14:53 Respiratory Rate 20 11/16/16 14:53 Blood Pressure 148/83 11/16/16 14:53 O2 Sat by Pulse Oximetry (%) 95 11/16/16 09:00 Constitutional: Yes: No Distress, Calm Cardiovascular: Yes: Regular Rate and Rhythm Respiratory: Yes: Regular, CTA Bilaterally Gastrointestinal: Yes: Normal Bowel Sounds, Soft Musculoskeletal: Yes: Other Extremities: Yes: Other Wound/Incision: Yes: Other (wound vac in place) Neurological: Yes: Alert, Oriented Psychiatric: Yes: Alert, Oriented Labs: CBC, BMP 11/16/16 07:00 11/11/16 10:31 INR, PTT INR 1.36 (0.82-1.09) H 10/24/16 07:50 Assessment/Plan osteo of the left toe wound infection dm fever leukocytosis wbc decreasing plan continue abx wound care vanco trough noted vanco dose given look at the vanco random and dose accordingly
[2016-11-17] MEDS: DOCUSATE SODIUM 100 MG CAPSULE (FP) PO SCH ×3 (06:06→21:35)
[2016-11-17] MEDS: HEPARIN NA (PORCINE) 5,000 UNITS/ML 1ML VIAL SQ SCH ×3 (06:06→21:35)
[2016-11-17] MEDS: INSULIN DETEMIR 100 UNITS/ML MDV SQ SCH ×2 (06:08→21:35)
[2016-11-17] MEDS: INSULIN SLIDING SCALE (NOVOLOG) 1 VIAL SQ SCH ×4 (06:09→21:36)
[2016-11-17] MEDS: ALBUTEROL SO4 2.5/IPRATROPIUM 0.5 INH SOL 3 ML VIAL.NEB. NEB SCH ×3 (06:56→18:45)
[2016-11-17] MEDS: TAMSULOSIN HCL 0.4 MG CAP.ER.24H (FP) PO SCH (08:30)
[2016-11-17] MEDS: FERROUS SO4 325 MG TABLET (FP) PO SCH ×2 (08:31→17:18)
[2016-11-17] MEDS: LISINOPRIL 20 MG TABLET (FP) PO SCH (11:30)
[2016-11-17] MEDS: MULTIVITAMINS (DAILY MVI) TABLET (FP) PO SCH (11:31)
[2016-11-17] MEDS: CLOPIDOGREL BISULFATE 75 MG TABLET (FP) PO SCH (11:31)
[2016-11-17] MEDS: amLODIPine BESYLATE 10 MG TABLET (FP) PO SCH (11:32)
[2016-11-17] MEDS: ASCORBIC ACID 500 MG TABLET (FP) PO SCH (11:32)
[2016-11-17] MEDS: AMINO ACIDS/PROTEIN HYDROLYS 30 ML LIQUID.PKT PO SCH ×2 (11:32→17:19)
[2016-11-17] MEDS: POLYETHYLENE GLYCOL 3350 119 GM BTL PO SCH ×2 (11:33→21:36)
--- NOTE | 2016-11-17 12:19 | PN ---
Progress Note, Physician History of Present Illness: patient stable continues to be slightly lethargic awake and alert - Current Medication List Current Medications: Active Medications Acetaminophen (Tylenol -) 650 mg PO Q4H PRN PRN Reason: FEVER OR PAIN Last Admin: 11/11/16 08:36 Dose: 650 mg Albuterol/Ipratropium (Duoneb -) 1 amp NEB QIDR [facility] Last Admin: 11/17/16 06:56 Dose: Not Given Albuterol/Ipratropium (Duoneb -) 1 amp NEB Q4H PRN PRN Reason: SHORTNESS OF BREATH Last Admin: 11/11/16 10:10 Dose: 1 amp Amino Acids (Prosource No Carb Liquid Pkt) 30 ml PO BID@0800,1730 [facility] Last Admin: 11/17/16 11:32 Dose: 30 ml Amlodipine Besylate (Norvasc -) 10 mg PO DAILY [facility] Last Admin: 11/17/16 11:32 Dose: 10 mg Ascorbic Acid (Vitamin C -) 500 mg PO DAILY [facility] Last Admin: 11/17/16 11:32 Dose: 500 mg Clopidogrel Bisulfate (Plavix -) 75 mg PO DAILY [facility] Last Admin: 11/17/16 11:31 Dose: 75 mg Docusate Sodium (Colace -) 100 mg PO TID [facility] Last Admin: 11/17/16 06:06 Dose: 100 mg Ferrous Sulfate (Feosol -) 325 mg PO BIDWM [facility] Last Admin: 11/17/16 08:31 Dose: 325 mg Guaifenesin (Robitussin Dm -) 5 ml PO Q6H PRN PRN Reason: COUGH Last Admin: 11/09/16 04:18 Dose: 5 ml Heparin Sodium (Porcine) (Heparin -) 5,000 unit SQ TID [facility] Last Admin: 11/17/16 06:06 Dose: 5,000 unit IV Flush (Picc Line Flush) 8 ml IVPUSH PRN PRN PRN Reason: Protocol Insulin Aspart (Novolog Vial Sliding Scale -) 1 vial SQ ACHS [facility] PRN Reason: Protocol Last Admin: 11/17/16 11:35 Dose: Not Given Insulin Detemir (Levemir Vial) 7 units SQ HS [facility] Last Admin: 11/16/16 21:42 Dose: 7 units Insulin Detemir (Levemir Vial) 12 units SQ AM [facility] Last Admin: 11/17/16 06:08 Dose: 12 units Lisinopril (Prinivil) 20 mg PO DAILY [facility] Last Admin: 11/17/16 11:30 Dose: 20 mg Multivitamins/Minerals/Vitamin C (Tab-A-Vit -) 1 tab PO DAILY [facility] Last Admin: 11/17/16 11:31 Dose: 1 tab Polyethylene Glycol (Miralax (For Daily Use) -) 17 gm PO BID [facility] Last Admin: 11/17/16 11:33 Dose: 17 gm Tamsulosin HCl (Flomax -) 0.8 mg PO DAILY@0830 [facility] Last Admin: 11/17/16 08:30 Dose: 0.8 mg - Objective Vital Signs: Vital Signs Temperature 98.5 F 11/17/16 06:00 Pulse Rate 96 H 11/17/16 06:00 Respiratory Rate 18 11/17/16 06:00 Blood Pressure 155/93 11/17/16 06:00 O2 Sat by Pulse Oximetry (%) 95 11/16/16 20:48 Constitutional: Yes: No Distress, Calm Cardiovascular: Yes: Regular Rate and Rhythm Respiratory: Yes: Regular, CTA Bilaterally Gastrointestinal: Yes: Normal Bowel Sounds, Soft Musculoskeletal: Yes: Other Extremities: Yes: Other Wound/Incision: Yes: Other (wound vac in place) Neurological: Yes: Alert, Oriented Psychiatric: Yes: Alert Labs: CBC, BMP 11/16/16 07:00 11/11/16 10:31 INR, PTT INR 1.36 (0.82-1.09) H 10/24/16 07:50 Assessment/Plan osteo of the left toe wound infection dm fever leukocytosis wbc decreasing plan continue abx wound care vanco trough noted vanco restarted
[2016-11-17] MEDS: VANCOMYCIN 1,500 MG in DEXTROSE 5%-WATER - 500 ML IVPB SCH (14:21)
--- NOTE | 2016-11-17 14:51 | PN ---
Physical Exam: SUBJECTIVE: Patient seen and examined. He has no complaints. He is more alert today. OBJECTIVE: Vital Signs Period Temp Pulse Resp BP Sys/Lopez Pulse Ox Last 24 Hr 97.8 F-98.6 F 96-100 18-20 148-166/83-93 95 GENERAL: The patient is awake, alert, oriented, in no acute distress. LUNGS: Breath sounds equal, clear to auscultation bilaterally, no wheezes, no crackles, no accessory muscle use. HEART: Regular rate and rhythm, S1, S2 without murmur, rub or gallop. ABDOMEN: Soft, nontender, nondistended, normoactive bowel sounds, no guarding, no rebound, no hepatosplenomegaly, no masses. EXTREMITIES: No edema, s/p left 1st toe amputation, wound VAC in place Laboratory Results - last 24 hr 11/16/16 11/16/16 11/17/16 17:00 21:39 05:33 POC Glucometer 160 166 132 Random Vancomycin 11/17/16 11/17/16 07:15 11:34 POC Glucometer 134 Random Vancomycin 6.864 Active Medications Generic Name Dose Route Start Last Admin Trade Name Freq PRN Reason Stop Dose Admin Acetaminophen 650 mg 11/05/16 14:11 11/11/16 08:36 Tylenol - PO 650 mg Q4H PRN Administration FEVER OR PAIN Albuterol/Ipratropium 1 amp 11/05/16 18:00 11/17/16 11:33 Duoneb - NEB 1 amp QIDR SANGE[facility]HA Administration Albuterol/Ipratropium 1 amp 11/11/16 08:51 11/11/16 10:10 Duoneb - NEB 1 amp Q4H PRN Administration SHORTNESS OF BREATH Amino Acids 30 ml 11/08/16 17:30 11/17/16 11:32 Prosource No Carb Liquid Pkt PO 30 ml BID@0800,1730 S[facility] Administration Amlodipine Besylate 10 mg 11/13/16 10:00 11/17/16 11:32 Norvasc - PO 10 mg DAILY [facility] Administration Ascorbic Acid 500 mg 11/09/16 10:00 11/17/16 11:32 Vitamin C - PO 500 mg DAILY [facility] Administration Clopidogrel Bisulfate 75 mg 11/06/16 10:00 11/17/16 11:31 Plavix - PO 75 mg DAILY [facility] Administration Docusate Sodium 100 mg 11/05/16 22:00 11/17/16 06:06 Colace - PO 100 mg TID S[facility] Administration Ferrous Sulfate 325 mg 11/05/16 17:30 11/17/16 08:31 Feosol - PO 325 mg BIDWM [facility] Administration Guaifenesin 5 ml 11/09/16 04:15 11/09/16 04:18 Robitussin Dm - PO 5 ml Q6H PRN Administration COUGH Heparin Sodium (Porcine) 5,000 unit 11/14/16 06:15 11/17/16 06:06 Heparin - SQ 5,000 unit TID [facility] Administration IV Flush 8 ml 11/15/16 13:45 Picc Line Flush IVPUSH PRN PRN Protocol Vancomycin HCl 1,500 mg/ 500 mls @ 250 mls/hr 11/17/16 14:00 Dextrose IVPB DAILY@1400 [facility] Protocol Insulin Aspart 1 vial 11/05/16 16:30 11/17/16 11:35 Novolog Vial Sliding Scale - SQ Not Given ACHS [facility] Protocol Insulin Detemir 7 units 11/13/16 08:04 11/16/16 21:42 Levemir Vial SQ 7 units HS [facility] Administration Insulin Detemir 12 units 11/13/16 08:04 11/17/16 06:08 Levemir Vial SQ 12 units AM [facility] Administration Lisinopril 20 mg 11/06/16 10:00 11/17/16 11:30 Prinivil PO 20 mg DAILY [facility] Administration Multivitamins/Minerals/Vitamin C 1 tab 11/09/16 10:00 11/17/16 11:31 Tab-A-Vit - PO 1 tab DAILY [facility] Administration Polyethylene Glycol 17 gm 11/09/16 10:15 11/17/16 11:33 Miralax (For Daily Use) - PO 17 gm BID [facility] Administration Tamsulosin HCl 0.8 mg 11/16/16 08:30 11/17/16 08:30 Flomax - PO 0.8 mg DAILY@0830 [facility] Administration ASSESSMENT/PLAN: This is a 56-year-old man with a history of type 2 DM, PAD who was admitted for left 1st toe osteomyelitis. 1. Sepsis secondary to osteomyelitis of left 1st toe, possible pneumonia - s/p left 1st toe/partial ray amputation 10/30, excisional debridement of left foot 11/05 - Vancomycin restarted - Continue wound VAC - Plan for outpatient hyperbaric treatment 2. Acute metabolic encephalopathy - Likely secondary to infection - Improving - MRI of brain: Symmetrical foci of restricted diffusion are seen on diffusion-weighted images in the region of the genu internal capsule, globus pallidus, with additional foci of restrictive changes in the posterior limb of internal capsule. The lesions shows increased signal intensity on diffusion weighted images with corresponding low signal intensity on ADC, increased signal intensity on FLAIR images. Symmetrical abnormal signal in globus pallidus may be seen in patient with history of the hypoxic ischemic encephalopathy, hepatic encephalopathy, drug abuse. Punctate foci of restricted diffusion are seen in the bifrontal white matter, left posterior sandy radiata. Punctate foci of increased signal intensity on diffusion weighted images are seen in the right anterior periventricular white matter, right centrum semiovale, right parietal lobe white matter, not clearly seen on ADC images due to the size of the lesions. 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 Normal LA - MRA of neck shows no hemodynamically significant stenosis 3. Fluid overload - Improved with Lasix IV 4. Acute anemia likely secondary to sepsis - Transfused 4 units PRBCs this admission - Continue ferrous sulfate - Transfuse for Hgb<7.0 5. Anemia secondary to chronic illness 6. Acute hypoxic respiratory failure - Improved 7. Type 2 DM, uncontrolled - Continue Levemir, Novolog sliding scale 8. PAD, history of LLE angioplasty - Continue Plavix 9. HTN - Continue Lisinopril, Norvasc 10. Urinary retention - Maintain Delgado - voiding trial in AM - Continue Flomax 11. Disposition - Plan for discharge to SNF with wound VAC, outpatient hyperbaric treatment, wound clinic follow-up Visit type - Emergency Visit Emergency Visit: Yes ED Registration Date: 10/23/16 Care time: The patient presented to the Emergency Department on the above date and was hospitalized for further evaluation of their emergent condition. - New Patient This patient is new to me today: No - Critical Care Critical Care patient: No - Discharge Referral Referred to [facility] Med P.C.: No
[2016-11-18] MEDS: ALBUTEROL SO4 2.5/IPRATROPIUM 0.5 INH SOL 3 ML VIAL.NEB. NEB SCH ×5 (00:05→23:15)
[2016-11-18] MEDS: INSULIN DETEMIR 100 UNITS/ML MDV SQ SCH ×2 (06:31→21:19)
[2016-11-18] MEDS: HEPARIN NA (PORCINE) 5,000 UNITS/ML 1ML VIAL SQ SCH ×3 (06:31→21:20)
[2016-11-18] MEDS: DOCUSATE SODIUM 100 MG CAPSULE (FP) PO SCH ×3 (06:32→21:20)
[2016-11-18] MEDS: INSULIN SLIDING SCALE (NOVOLOG) 1 VIAL SQ SCH ×4 (06:32→21:19)
[2016-11-18] MEDS ORDERED: INSULIN (NOVOLOG) ASPART 100 UNITS/ML 10ML VIAL ONE ×2 (06:38→20:43)
[2016-11-18] MEDS: FERROUS SO4 325 MG TABLET (FP) PO SCH ×2 (08:11→17:00)
[2016-11-18] MEDS: TAMSULOSIN HCL 0.4 MG CAP.ER.24H (FP) PO SCH (08:11)
[2016-11-18] MEDS: AMINO ACIDS/PROTEIN HYDROLYS 30 ML LIQUID.PKT PO SCH ×2 (08:11→17:00)
[2016-11-18] MEDS ORDERED: PT OWN MED DRAWER 7, Y5N ONE (09:51)
[2016-11-18] MEDS: MULTIVITAMINS (DAILY MVI) TABLET (FP) PO SCH (09:55)
[2016-11-18] MEDS: ASCORBIC ACID 500 MG TABLET (FP) PO SCH (09:55)
[2016-11-18] MEDS: amLODIPine BESYLATE 10 MG TABLET (FP) PO SCH (09:55)
[2016-11-18] MEDS: CLOPIDOGREL BISULFATE 75 MG TABLET (FP) PO SCH (09:55)
[2016-11-18] MEDS: LISINOPRIL 20 MG TABLET (FP) PO SCH (09:55)
--- NOTE | 2016-11-18 13:52 | PN ---
Teaching Attending Note Name of Resident: Edward Chamberlain ATTENDING PHYSICIAN STATEMENT I saw and evaluated the patient. I reviewed the resident's note and discussed the case with the resident. I agree with the resident's findings and plan as documented. SUBJECTIVE: No complaints. OBJECTIVE: Vital Signs Period Temp Pulse Resp BP Sys/Lopez Pulse Ox Last 24 Hr 97.7 F-98.9 F 90-99 18-20 135-159/70-96 98 GENERAL: The patient is awake, alert, oriented, in no acute distress. LUNGS: Breath sounds equal, clear to auscultation bilaterally, no wheezes, no crackles, no accessory muscle use. HEART: Regular rate and rhythm, S1, S2 without murmur, rub or gallop. ABDOMEN: Soft, nontender, nondistended, normoactive bowel sounds, no guarding, no rebound, no hepatosplenomegaly, no masses. EXTREMITIES: No edema, s/p left 1st toe amputation, wound VAC in place ASSESSMENT AND PLAN: This is a 56-year-old man with a history of type 2 DM, PAD who was admitted for left 1st toe osteomyelitis. 1. Sepsis secondary to osteomyelitis of left 1st toe, possible pneumonia - s/p left 1st toe/partial ray amputation 10/30, excisional debridement of left foot 11/05 - Continue Vancomycin - Continue wound VAC - Plan for outpatient hyperbaric treatment 2. Acute metabolic encephalopathy - Likely secondary to infection - Improving 3. Fluid overload - Improved with Lasix IV 4. Acute anemia likely secondary to sepsis - Transfused 4 units PRBCs this admission - Continue ferrous sulfate - Transfuse for Hgb<7.0 5. Anemia secondary to chronic illness 6. Acute hypoxic respiratory failure - Improved 7. Type 2 DM, uncontrolled - Continue Levemir, Novolog sliding scale 8. PAD, history of LLE angioplasty - Continue Plavix 9. HTN - Continue Lisinopril, Norvasc 10. Urinary retention - Continue Flomax - Voiding trial today 11. Disposition - Ok for discharge to SNF with right basilic vein PICC to complete Vancomycin , wound VAC, outpatient hyperbaric treatment, wound clinic follow-up
[2016-11-18] MEDS: POLYETHYLENE GLYCOL 3350 119 GM BTL PO SCH ×2 (15:02→21:20)
[2016-11-18] MEDS: VANCOMYCIN 1,500 MG in DEXTROSE 5%-WATER - 500 ML IVPB SCH (17:00)
--- NOTE | 2016-11-18 17:28 | PN ---
Progress Note, Physician History of Present Illness: doing better much more awake and alert foleys removed patient voiding - Current Medication List Current Medications: Active Medications Acetaminophen (Tylenol -) 650 mg PO Q4H PRN PRN Reason: FEVER OR PAIN Last Admin: 11/11/16 08:36 Dose: 650 mg Albuterol/Ipratropium (Duoneb -) 1 amp NEB QIDR [facility] Last Admin: 11/18/16 11:15 Dose: Not Given Albuterol/Ipratropium (Duoneb -) 1 amp NEB Q4H PRN PRN Reason: SHORTNESS OF BREATH Last Admin: 11/11/16 10:10 Dose: 1 amp Amino Acids (Prosource No Carb Liquid Pkt) 30 ml PO BID@0800,1730 [facility] Last Admin: 11/18/16 17:00 Dose: 30 ml Amlodipine Besylate (Norvasc -) 10 mg PO DAILY [facility] Last Admin: 11/18/16 09:55 Dose: 10 mg Ascorbic Acid (Vitamin C -) 500 mg PO DAILY [facility] Last Admin: 11/18/16 09:55 Dose: 500 mg Clopidogrel Bisulfate (Plavix -) 75 mg PO DAILY [facility] Last Admin: 11/18/16 09:55 Dose: 75 mg Docusate Sodium (Colace -) 100 mg PO TID [facility] Last Admin: 11/18/16 14:05 Dose: 100 mg Ferrous Sulfate (Feosol -) 325 mg PO BIDWM [facility] Last Admin: 11/18/16 17:00 Dose: 325 mg Guaifenesin (Robitussin Dm -) 5 ml PO Q6H PRN PRN Reason: COUGH Last Admin: 11/09/16 04:18 Dose: 5 ml Heparin Sodium (Porcine) (Heparin -) 5,000 unit SQ TID [facility] Last Admin: 11/18/16 14:05 Dose: 5,000 unit IV Flush (Picc Line Flush) 8 ml IVPUSH PRN PRN PRN Reason: Protocol Vancomycin HCl 1,500 mg/ (Dextrose) 500 mls @ 250 mls/hr IVPB DAILY@1400 [facility] PRN Reason: Protocol Last Admin: 11/18/16 17:00 Dose: 250 mls/hr Insulin Aspart (Novolog Vial Sliding Scale -) 1 vial SQ ACHS [facility] PRN Reason: Protocol Last Admin: 11/18/16 17:06 Dose: 2 units Insulin Detemir (Levemir Vial) 7 units SQ HS [facility] Last Admin: 11/17/16 21:35 Dose: 7 units Insulin Detemir (Levemir Vial) 12 units SQ AM [facility] Last Admin: 11/18/16 06:31 Dose: 12 units Lisinopril (Prinivil) 20 mg PO DAILY [facility] Last Admin: 11/18/16 09:55 Dose: 20 mg Multivitamins/Minerals/Vitamin C (Tab-A-Vit -) 1 tab PO DAILY [facility] Last Admin: 11/18/16 09:55 Dose: 1 tab Polyethylene Glycol (Miralax (For Daily Use) -) 17 gm PO BID [facility] Last Admin: 11/18/16 15:02 Dose: 17 gm Tamsulosin HCl (Flomax -) 0.8 mg PO DAILY@0830 [facility] Last Admin: 11/18/16 08:11 Dose: 0.8 mg - Objective Vital Signs: Vital Signs Temperature 98.1 F 11/18/16 15:30 Pulse Rate 94 H 11/18/16 15:30 Respiratory Rate 20 11/18/16 10:00 Blood Pressure 148/90 11/18/16 15:30 O2 Sat by Pulse Oximetry (%) 97 11/18/16 09:00 Constitutional: Yes: No Distress, Calm Cardiovascular: Yes: Regular Rate and Rhythm Respiratory: Yes: Regular, CTA Bilaterally Gastrointestinal: Yes: Normal Bowel Sounds, Soft Musculoskeletal: Yes: Other Extremities: Yes: Other Wound/Incision: Yes: Other (wound vac in place) Neurological: Yes: Alert, Oriented Psychiatric: Yes: Alert Labs: CBC, BMP 11/16/16 07:00 11/11/16 10:31 INR, PTT INR 1.36 (0.82-1.09) H 10/24/16 07:50 Assessment/Plan osteo of the left toe wound infection dm fever leukocytosis wbc normal plan continue abx wound care vanco follow vanco trough on regular basis physio
[2016-11-18] MEDS: guaiFENesin/D-METHORPHAN HB 10 ML UNIT-DOSE CUPS PO PRN (19:46)
--- NOTE | 2016-11-18 21:37 | PN ---
Physical Exam: SUBJECTIVE: Patient seen and examined at bedside. He has no complaint and no acute events overnight. OBJECTIVE: Vital Signs Period Temp Pulse Resp BP Sys/Lopez Pulse Ox Last 24 Hr 97.7 F-99.2 F 90-99 18-20 137-164/76-96 97 GENERAL: AAOx3, mental status at hospital baseline, no respiratory distress EYES: sclera anicteric, conjunctiva clear ENT: oropharynx clear without exudates LUNGS: CTAB HEART: Tachycardic, S1 and S2 present,No murmur ABDOMEN: +bs, soft, non-tender EXTREMITIES: L foot wound vac in place Laboratory Results - last 24 hr 11/17/16 11/18/16 11/18/16 21:33 06:29 11:31 POC Glucometer 187 92 127 11/18/16 17:04 POC Glucometer 172 Active Medications Generic Name Dose Route Start Last Admin Trade Name Freq PRN Reason Stop Dose Admin Acetaminophen 650 mg 11/05/16 14:11 11/11/16 08:36 Tylenol - PO 650 mg Q4H PRN Administration FEVER OR PAIN Albuterol/Ipratropium 1 amp 11/05/16 18:00 11/18/16 18:43 Duoneb - NEB 1 amp QIDR [facility] Administration Albuterol/Ipratropium 1 amp 11/11/16 08:51 11/11/16 10:10 Duoneb - NEB 1 amp Q4H PRN Administration SHORTNESS OF BREATH Amino Acids 30 ml 11/08/16 17:30 11/18/16 17:00 Prosource No Carb Liquid Pkt PO 30 ml BID@0800,1730 [facility] Administration Amlodipine Besylate 10 mg 11/13/16 10:00 11/18/16 09:55 Norvasc - PO 10 mg DAILY [facility] Administration Ascorbic Acid 500 mg 11/09/16 10:00 11/18/16 09:55 Vitamin C - PO 500 mg DAILY [facility] Administration Clopidogrel Bisulfate 75 mg 11/06/16 10:00 11/18/16 09:55 Plavix - PO 75 mg DAILY [facility] Administration Docusate Sodium 100 mg 11/05/16 22:00 11/18/16 21:20 Colace - PO 100 mg TID [facility] Administration Ferrous Sulfate 325 mg 11/05/16 17:30 11/18/16 17:00 Feosol - PO 325 mg BIDWM [facility] Administration Guaifenesin 5 ml 11/09/16 04:15 11/18/16 19:46 Robitussin Dm - PO 5 ml Q6H PRN Administration COUGH Heparin Sodium (Porcine) 5,000 unit 11/14/16 06:15 11/18/16 21:20 Heparin - SQ 5,000 unit TID [facility] Administration IV Flush 8 ml 11/15/16 13:45 Picc Line Flush IVPUSH PRN PRN Protocol Vancomycin HCl 1,500 mg/ 500 mls @ 250 mls/hr 11/17/16 14:00 11/18/16 17:00 Dextrose IVPB 250 mls/hr DAILY@1400 [facility] Administration Protocol Insulin Aspart 1 vial 11/05/16 16:30 11/18/16 21:19 Novolog Vial Sliding Scale - SQ 4 units ACHS [facility] Administration Protocol Insulin Detemir 7 units 11/13/16 08:04 11/18/16 21:19 Levemir Vial SQ 7 units HS [facility] Administration Insulin Detemir 12 units 11/13/16 08:04 11/18/16 06:31 Levemir Vial SQ 12 units AM [facility] Administration Lisinopril 20 mg 11/06/16 10:00 11/18/16 09:55 Prinivil PO 20 mg DAILY [facility] Administration Multivitamins/Minerals/Vitamin C 1 tab 11/09/16 10:00 11/18/16 09:55 Tab-A-Vit - PO 1 tab DAILY [facility] Administration Polyethylene Glycol 17 gm 11/09/16 10:15 11/18/16 21:20 Miralax (For Daily Use) - PO 17 gm BID [facility] Administration Tamsulosin HCl 0.8 mg 11/16/16 08:30 11/18/16 08:11 Flomax - PO 0.8 mg DAILY@0830 [facility] Administration ASSESSMENT/PLAN: 56 yo M with h/o uncontrolled DMII admitted for L foot osteomyelitis. Osteomyelitis, L first toe - Cont. Vanco - Cont. wound care Urinary retention - Likely 2/2 BPH - Maintain haider Altered mental status, mild - Now at hospital baseline * patient was more lucid at home per - Likely toxic metabolic - MRI shows tint infarct L subcortical Dyspea 2/2 pleural effusion - Resolved - Lasix PRN and spirometry Normocytic anemia - Baseline ~10 - H&H stable s/p transfusion - Cont. Fe supplement - Transfuse if HGB < 7 IDDM - Cont. sliding scale and cont. levemir 7/12 units BID HTN - Cont. norvasc 5mg daily and lisnopril 20mg daily FEN - IVF not indicated - Normal lytes - Diabetic/Sodium diet + prosource Prophylaxis - DVT: heparin - GI: not indicated Disposition - Accepted by Richie Shabazz, waiting to be discharged Code status - Full Visit type - Emergency Visit Emergency Visit: No - New Patient This patient is new to me today: No - Critical Care Critical Care patient: No
[2016-11-19] MEDS: HEPARIN NA (PORCINE) 5,000 UNITS/ML 1ML VIAL SQ SCH ×3 (05:53→21:10)
[2016-11-19] MEDS: DOCUSATE SODIUM 100 MG CAPSULE (FP) PO SCH ×3 (05:53→21:09)
[2016-11-19] MEDS: INSULIN SLIDING SCALE (NOVOLOG) 1 VIAL SQ SCH ×4 (06:14→21:22)
[2016-11-19] MEDS: INSULIN DETEMIR 100 UNITS/ML MDV SQ SCH ×2 (06:17→21:10)
[2016-11-19] MEDS: ALBUTEROL SO4 2.5/IPRATROPIUM 0.5 INH SOL 3 ML VIAL.NEB. NEB SCH ×4 (07:03→23:43)
[2016-11-19] MEDS ORDERED: LISINOPRIL 20 MG TABLET (FP) PO SCH (08:30)
[2016-11-19] MEDS: AMINO ACIDS/PROTEIN HYDROLYS 30 ML LIQUID.PKT PO SCH ×2 (08:41→17:51)
[2016-11-19] MEDS: FERROUS SO4 325 MG TABLET (FP) PO SCH ×2 (09:00→17:52)
[2016-11-19] MEDS: TAMSULOSIN HCL 0.4 MG CAP.ER.24H (FP) PO SCH (09:30)
[2016-11-19] MEDS ORDERED: PT OWN MED DRAWER 7, Y5N ONE (09:34)
[2016-11-19] MEDS: amLODIPine BESYLATE 10 MG TABLET (FP) PO SCH (09:42)
[2016-11-19] MEDS: MULTIVITAMINS (DAILY MVI) TABLET (FP) PO SCH (09:42)
[2016-11-19] MEDS: CLOPIDOGREL BISULFATE 75 MG TABLET (FP) PO SCH (09:43)
[2016-11-19] MEDS: LISINOPRIL 20 MG TABLET (FP) PO SCH (09:43)
[2016-11-19] MEDS: ASCORBIC ACID 500 MG TABLET (FP) PO SCH (09:44)
[2016-11-19] MEDS: POLYETHYLENE GLYCOL 3350 119 GM BTL PO SCH ×2 (09:45→21:10)
--- NOTE | 2016-11-19 13:09 | PN ---
Teaching Attending Note Name of Resident: Edward Chamberlain ATTENDING PHYSICIAN STATEMENT I saw and evaluated the patient. I reviewed the resident's note and discussed the case with the resident. I agree with the resident's findings and plan as documented. SUBJECTIVE:resting comfortable. denies CP, SOB,fever, chills, N/V/C/D OBJECTIVE: Last Vital Signs Temp Pulse Resp BP Pulse Ox 97.7 F 93 H 20 150/80 97 11/19/16 06:00 11/19/16 06:00 11/19/16 06:00 11/19/16 06:00 11/18/16 21:00 General NAD, CV S1 S2 RRR no murmur/rub/gallop Lungs CTA B/L no wheezing/rales/rhonchi Extremities- wound vac applied to L foot +RUE PICC ASSESSMENT AND PLAN: 56yo M with PMH DM presented to the ER and was admitted for further evalution of their emergent condition 1. 1st toe L foot OM-afebrile. current with wound vac in place. will need HBO. on Vanco, now therapeutic. will need to d/w ID overall length as level was subtherapeutic for some time. will need podiatry and wound care follwo up. 2. Microcytic anemia-anemia of crhonic disease. received total of 4 units PRBC this admission. on iron supplements. transfuse for hgb <7 3. Acute metabolic encephalopathy- with superimposed subacute CVA. imaging studies done. evaluate by neuro and cardio. start statin. echo done. in plavix 4. DM- A1c 12.4. improved. cont current dosing. iss,bgm, levemir BID. 5. HTN- above goal. will increase acei. cont to monitor 6. DVT ppx- hep sq. will hold mornings heparin dose 7. awaiting insurance authorization for ASHLIE placement
[2016-11-19] MEDS: VANCOMYCIN 1,500 MG in DEXTROSE 5%-WATER - 500 ML IVPB SCH (15:00)
--- NOTE | 2016-11-19 16:52 | CONSULT ---
Consultation: REQUESTING PROVIDER: CONSULT REQUEST: We have been asked to medically evaluate this patient for ( specify). HISTORY OF PRESENT ILLNESS: REVIEW OF SYSTEMS: CONSTITUTIONAL: Absent: fever, chills, diaphoresis, generalized weakness, malaise, loss of appetite, weight change HEENT: Absent: rhinorrhea, nasal congestion, throat pain, throat swelling, difficulty swallowing, mouth swelling, ear pain, eye pain, visual changes CARDIOVASCULAR: Absent: chest pain, syncope, palpitations, irregular heart rate, lightheadedness , peripheral edema RESPIRATORY: Absent: cough, shortness of breath, dyspnea with exertion, orthopnea, wheezing, stridor, hemoptysis GASTROINTESTINAL: Absent: abdominal pain, abdominal distension, nausea, vomiting, diarrhea, constipation, melena, hematochezia GENITOURINARY: Absent: dysuria, frequency, urgency, hesitancy, hematuria, flank pain, genital pain MUSCULOSKELETAL: Absent: myalgia, arthralgia, joint swelling, back pain, neck pain SKIN: Absent: rash, itching, pallor HEMATOLOGIC/IMMUNOLOGIC: Absent: easy bleeding, easy bruising, lymphadenopathy, frequent infections ENDOCRINE: Absent: unexplained weight gain, unexplained weight loss, heat intolerance, cold intolerance NEUROLOGIC: Absent: headache, focal weakness or paresthesias, dizziness, unsteady gait, seizure, mental status changes, bladder or bowel incontinence PSYCHIATRIC: Absent: anxiety, depression, suicidal or homicidal ideation, hallucinations. PHYSICAL EXAMINATION Vital Signs - 24 hr 11/18/16 11/18/16 11/18/16 18:15 21:00 21:12 Temperature 98.2 F 99.2 F Pulse Rate 93 H 99 H Respiratory 20 20 Rate Blood Pressure 155/76 164/88 O2 Sat by Pulse 97 Oximetry (%) 11/19/16 11/19/16 11/19/16 06:00 09:00 10:00 Temperature 97.7 F 98.4 F Pulse Rate 93 H 95 H Respiratory 20 20 20 Rate Blood Pressure 150/80 159/89 O2 Sat by Pulse 98 Oximetry (%) 11/19/16 14:31 Temperature 98.1 F Pulse Rate 94 H Respiratory 20 Rate Blood Pressure 155/89 O2 Sat by Pulse Oximetry (%) GENERAL: Awake, alert, and fully oriented, in no acute distress. HEAD: Normal with no signs of trauma. EYES: Pupils equal, round and reactive to light, extraocular movements intact, sclera anicteric, conjunctiva clear. No lid lag. EARS, NOSE, THROAT: Ears normal, nares patent, oropharynx clear without exudates. Moist mucous membranes. NECK: Normal range of motion, supple without lymphadenopathy, JVD, or masses. LUNGS: Breath sounds equal, clear to auscultation bilaterally. No wheezes, and no crackles. No accessory muscle use. HEART: Regular rate and rhythm, normal S1 and S2 without murmur, rub or gallop. ABDOMEN: Soft, nontender, not distended, normoactive bowel sounds, no guarding, no rebound, no masses. No hepatomegaly or splenomegaly. MUSCULOSKELETAL: Normal range of motion at all joints. No bony deformities or tenderness. No CVA tenderness. UPPER EXTREMITIES: 2+ pulses, warm, well-perfused. No cyanosis. No clubbing. Cap refill <2 seconds. No peripheral edema. LOWER EXTREMITIES: 2+ pulses, warm, well-perfused. No calf tenderness. No peripheral edema. NEUROLOGICAL: Cranial nerves II-XII intact. Normal speech. Normal gait. PSYCHIATRIC: Cooperative. Good eye contact. Appropriate mood and affect. SKIN: Warm, dry, normal turgor, no rashes or lesions noted. Laboratory Results - last 24 hr 11/18/16 11/18/16 11/19/16 17:04 21:15 05:33 POC Glucometer 172 243 147 11/19/16 12:22 POC Glucometer 188 Active Medications Generic Name Dose Route Start Last Admin Trade Name Freq PRN Reason Stop Dose Admin Acetaminophen 650 mg 11/05/16 14:11 11/11/16 08:36 Tylenol - PO 650 mg Q4H PRN Administration FEVER OR PAIN Albuterol/Ipratropium 1 amp 11/05/16 18:00 11/19/16 11:20 Duoneb - NEB 1 amp QIDR [facility] Administration Albuterol/Ipratropium 1 amp 11/11/16 08:51 11/11/16 10:10 Duoneb - NEB 1 amp Q4H PRN Administration SHORTNESS OF BREATH Amino Acids 30 ml 11/08/16 17:30 11/19/16 08:41 Prosource No Carb Liquid Pkt PO 30 ml BID@0800,1730 [facility] Administration Amlodipine Besylate 10 mg 11/13/16 10:00 11/19/16 09:42 Norvasc - PO 10 mg DAILY [facility] Administration Ascorbic Acid 500 mg 11/09/16 10:00 11/19/16 09:44 Vitamin C - PO 500 mg DAILY [facility] Administration Clopidogrel Bisulfate 75 mg 11/06/16 10:00 11/19/16 09:43 Plavix - PO 75 mg DAILY [facility] Administration Docusate Sodium 100 mg 11/05/16 22:00 11/19/16 14:50 Colace - PO 100 mg TID [facility] Administration Ferrous Sulfate 325 mg 11/05/16 17:30 11/19/16 09:00 Feosol - PO 325 mg BIDWM [facility] Administration Guaifenesin 5 ml 11/09/16 04:15 11/18/16 19:46 Robitussin Dm - PO 5 ml Q6H PRN Administration COUGH Heparin Sodium (Porcine) 5,000 unit 11/14/16 06:15 11/19/16 14:50 Heparin - SQ 5,000 unit TID [facility] Administration IV Flush 8 ml 11/15/16 13:45 Picc Line Flush IVPUSH PRN PRN Protocol Vancomycin HCl 1,500 mg/ 500 mls @ 250 mls/hr 11/17/16 14:00 11/19/16 15:00 Dextrose IVPB 250 mls/hr DAILY@1400 [facility] Administration Protocol Insulin Aspart 1 vial 11/05/16 16:30 11/19/16 12:24 Novolog Vial Sliding Scale - SQ 2 units ACHS [facility] Administration Protocol Insulin Detemir 7 units 11/13/16 08:04 11/18/16 21:19 Levemir Vial SQ 7 units HS [facility] Administration Insulin Detemir 12 units 11/13/16 08:04 11/19/16 06:17 Levemir Vial SQ 12 units AM [facility] Administration Lisinopril 40 mg 11/19/16 10:00 11/19/16 09:43 Prinivil PO 40 mg DAILY [facility] Administration Multivitamins/Minerals/Vitamin C 1 tab 11/09/16 10:00 11/19/16 09:42 Tab-A-Vit - PO 1 tab DAILY [facility] Administration Polyethylene Glycol 17 gm 11/09/16 10:15 11/19/16 09:45 Miralax (For Daily Use) - PO 17 gm BID [facility] Administration Rosuvastatin Calcium 20 mg 11/19/16 22:00 Crestor - PO HS [facility] Tamsulosin HCl 0.8 mg 11/16/16 08:30 11/19/16 09:30 Flomax - PO 0.8 mg DAILY@0830 [facility] Administration ASSESSMENT/PLAN: Dispo: We will continue to follow the patient. Thank you for this consultative opportunity.
--- NOTE | 2016-11-19 16:58 | PN ---
Physical Exam: SUBJECTIVE: Patient seen and examined at bedside. He has no complaint and no acute events overnight. OBJECTIVE: Vital Signs Period Temp Pulse Resp BP Sys/Lopez Pulse Ox Last 24 Hr 97.7 F-99.2 F 93-99 20-20 150-164/76-89 97-98 GENERAL: AAOx3, mental status at hospital baseline, no respiratory distress EYES: sclera anicteric, conjunctiva clear ENT: oropharynx clear without exudates LUNGS: CTAB HEART: Tachycardic, S1 and S2 present,No murmur ABDOMEN: +bs, soft, non-tender EXTREMITIES: L foot wound vac in place Laboratory Results - last 24 hr 11/18/16 11/18/16 11/19/16 17:04 21:15 05:33 POC Glucometer 172 243 147 11/19/16 12:22 POC Glucometer 188 Active Medications Generic Name Dose Route Start Last Admin Trade Name Freq PRN Reason Stop Dose Admin Acetaminophen 650 mg 11/05/16 14:11 11/11/16 08:36 Tylenol - PO 650 mg Q4H PRN Administration FEVER OR PAIN Albuterol/Ipratropium 1 amp 11/05/16 18:00 11/19/16 11:20 Duoneb - NEB 1 amp QIDR SANGEETHA Administration Albuterol/Ipratropium 1 amp 11/11/16 08:51 11/11/16 10:10 Duoneb - NEB 1 amp Q4H PRN Administration SHORTNESS OF BREATH Amino Acids 30 ml 11/08/16 17:30 11/19/16 08:41 Prosource No Carb Liquid Pkt PO 30 ml BID@0800,1730 SANGEETHA Administration Amlodipine Besylate 10 mg 11/13/16 10:00 11/19/16 09:42 Norvasc - PO 10 mg DAILY SANGEETHA Administration Ascorbic Acid 500 mg 11/09/16 10:00 11/19/16 09:44 Vitamin C - PO 500 mg DAILY SANGEETHA Administration Clopidogrel Bisulfate 75 mg 11/06/16 10:00 11/19/16 09:43 Plavix - PO 75 mg DAILY SANGEETHA Administration Docusate Sodium 100 mg 11/05/16 22:00 11/19/16 14:50 Colace - PO 100 mg TID SANGEETHA Administration Ferrous Sulfate 325 mg 11/05/16 17:30 11/19/16 09:00 Feosol - PO 325 mg BIDWM SANGEETHA Administration Guaifenesin 5 ml 11/09/16 04:15 11/18/16 19:46 Robitussin Dm - PO 5 ml Q6H PRN Administration COUGH Heparin Sodium (Porcine) 5,000 unit 11/14/16 06:15 11/19/16 14:50 Heparin - SQ 5,000 unit TID SANGEETHA Administration IV Flush 8 ml 11/15/16 13:45 Picc Line Flush IVPUSH PRN PRN Protocol Vancomycin HCl 1,500 mg/ 500 mls @ 250 mls/hr 11/17/16 14:00 11/19/16 15:00 Dextrose IVPB 250 mls/hr DAILY@1400 SANGEETHA Administration Protocol Insulin Aspart 1 vial 11/05/16 16:30 11/19/16 12:24 Novolog Vial Sliding Scale - SQ 2 units ACHS SANGEETHA Administration Protocol Insulin Detemir 7 units 11/13/16 08:04 11/18/16 21:19 Levemir Vial SQ 7 units HS SANGEETHA Administration Insulin Detemir 12 units 11/13/16 08:04 11/19/16 06:17 Levemir Vial SQ 12 units AM SANGEETHA Administration Lisinopril 40 mg 11/19/16 10:00 11/19/16 09:43 Prinivil PO 40 mg DAILY SANGEETHA Administration Multivitamins/Minerals/Vitamin C 1 tab 11/09/16 10:00 11/19/16 09:42 Tab-A-Vit - PO 1 tab DAILY SANGEETHA Administration Polyethylene Glycol 17 gm 11/09/16 10:15 11/19/16 09:45 Miralax (For Daily Use) - PO 17 gm BID SANGEETHA Administration Rosuvastatin Calcium 20 mg 11/19/16 22:00 Crestor - PO HS SANGEETHA Tamsulosin HCl 0.8 mg 11/16/16 08:30 11/19/16 09:30 Flomax - PO 0.8 mg DAILY@0830 SANGEETHA Administration ASSESSMENT/PLAN: 56 yo M with h/o uncontrolled DMII admitted for L foot osteomyelitis. Osteomyelitis, L first toe - Cont. Vanco till 11/21 - Cont. wound care Urinary retention - Likely 2/2 BPH - Delgado d/c - Monitor urine output Altered mental status, mild - Now at hospital baseline * patient was more lucid at home per - Likely toxic metabolic - MRI shows tint infarct L subcortical Dyspea 2/2 pleural effusion - Resolved - Lasix PRN and spirometry Normocytic anemia - Baseline ~10 - H&H stable s/p transfusion - Cont. Fe supplement - Transfuse if HGB < 7 IDDM - Cont. sliding scale and cont. levemir 7/12 units BID HTN - Cont. norvasc 5mg daily and lisnopril 20mg daily FEN - IVF not indicated - Normal lytes - Diabetic/Sodium diet + prosource Prophylaxis - DVT: heparin - GI: not indicated Disposition - Accepted by Richie Shabazz, waiting to be discharged Code status - Full Visit type - Emergency Visit Emergency Visit: No - New Patient This patient is new to me today: No - Critical Care Critical Care patient: No
[2016-11-19] MEDS ORDERED: INSULIN (NOVOLOG) ASPART 100 UNITS/ML 10ML VIAL ONE (20:57)
[2016-11-19] MEDS: ROSUVASTATIN CA 20 MG TABLET (FP) PO SCH (21:10)
--- NOTE | 2016-11-19 22:51 | PN ---
Progress Note, Physician History of Present Illness: stable no new events working with physio - Current Medication List Current Medications: Active Medications Acetaminophen (Tylenol -) 650 mg PO Q4H PRN PRN Reason: FEVER OR PAIN Last Admin: 11/11/16 08:36 Dose: 650 mg Albuterol/Ipratropium (Duoneb -) 1 amp NEB QIDR [facility] Last Admin: 11/19/16 17:27 Dose: Not Given Albuterol/Ipratropium (Duoneb -) 1 amp NEB Q4H PRN PRN Reason: SHORTNESS OF BREATH Last Admin: 11/11/16 10:10 Dose: 1 amp Amino Acids (Prosource No Carb Liquid Pkt) 30 ml PO BID@0800,1730 [facility] Last Admin: 11/19/16 17:51 Dose: 30 ml Amlodipine Besylate (Norvasc -) 10 mg PO DAILY [facility] Last Admin: 11/19/16 09:42 Dose: 10 mg Ascorbic Acid (Vitamin C -) 500 mg PO DAILY [facility] Last Admin: 11/19/16 09:44 Dose: 500 mg Clopidogrel Bisulfate (Plavix -) 75 mg PO DAILY [facility] Last Admin: 11/19/16 09:43 Dose: 75 mg Docusate Sodium (Colace -) 100 mg PO TID [facility] Last Admin: 11/19/16 21:09 Dose: 100 mg Ferrous Sulfate (Feosol -) 325 mg PO BIDWM [facility] Last Admin: 11/19/16 17:52 Dose: 325 mg Guaifenesin (Robitussin Dm -) 5 ml PO Q6H PRN PRN Reason: COUGH Last Admin: 11/18/16 19:46 Dose: 5 ml Heparin Sodium (Porcine) (Heparin -) 5,000 unit SQ TID [facility] Last Admin: 11/19/16 21:10 Dose: 5,000 unit IV Flush (Picc Line Flush) 8 ml IVPUSH PRN PRN PRN Reason: Protocol Vancomycin HCl 1,500 mg/ (Dextrose) 500 mls @ 250 mls/hr IVPB DAILY@1400 SANGEETHA PRN Reason: Protocol Last Admin: 11/19/16 15:00 Dose: 250 mls/hr Insulin Aspart (Novolog Vial Sliding Scale -) 1 vial SQ ACHS [facility] PRN Reason: Protocol Last Admin: 11/19/16 21:22 Dose: 2 units Insulin Detemir (Levemir Vial) 7 units SQ HS [facility] Last Admin: 11/19/16 21:10 Dose: 7 units Insulin Detemir (Levemir Vial) 12 units SQ AM [facility] Last Admin: 11/19/16 06:17 Dose: 12 units Lisinopril (Prinivil) 40 mg PO DAILY [facility] Last Admin: 11/19/16 09:43 Dose: 40 mg Multivitamins/Minerals/Vitamin C (Tab-A-Vit -) 1 tab PO DAILY [facility] Last Admin: 11/19/16 09:42 Dose: 1 tab Polyethylene Glycol (Miralax (For Daily Use) -) 17 gm PO BID [facility] Last Admin: 11/19/16 21:10 Dose: 17 gm Rosuvastatin Calcium (Crestor -) 20 mg PO HS [facility] Last Admin: 11/19/16 21:10 Dose: 20 mg Tamsulosin HCl (Flomax -) 0.8 mg PO DAILY@0830 [facility] Last Admin: 11/19/16 09:30 Dose: 0.8 mg - Objective Vital Signs: Vital Signs Temperature 97.8 F 11/19/16 19:00 Pulse Rate 101 H 11/19/16 20:00 Respiratory Rate 20 11/19/16 20:00 Blood Pressure 155/93 11/19/16 20:00 O2 Sat by Pulse Oximetry (%) 98 11/19/16 09:00 Constitutional: Yes: No Distress, Calm Cardiovascular: Yes: Regular Rate and Rhythm Respiratory: Yes: Regular, CTA Bilaterally Gastrointestinal: Yes: Normal Bowel Sounds, Soft Musculoskeletal: Yes: Other Extremities: Yes: Other Wound/Incision: Yes: Other (wound vac in place) Neurological: Yes: Alert, Oriented Psychiatric: Yes: Alert, Oriented Labs: CBC, BMP 11/16/16 07:00 11/11/16 10:31 INR, PTT INR 1.36 (0.82-1.09) H 10/24/16 07:50 Assessment/Plan osteo of the left toe wound infection dm fever leukocytosis wbc normal plan continue abx wound care vanco follow vanco trough on regular basis physio finish the course as discussed
[2016-11-20] MEDS: HEPARIN NA (PORCINE) 5,000 UNITS/ML 1ML VIAL SQ SCH ×3 (05:32→21:41)
[2016-11-20] MEDS: DOCUSATE SODIUM 100 MG CAPSULE (FP) PO SCH ×3 (05:32→21:41)
[2016-11-20] MEDS: INSULIN SLIDING SCALE (NOVOLOG) 1 VIAL SQ SCH ×4 (06:13→21:42)
[2016-11-20] MEDS: INSULIN DETEMIR 100 UNITS/ML MDV SQ SCH ×2 (06:17→21:42)
[2016-11-20] MEDS: ALBUTEROL SO4 2.5/IPRATROPIUM 0.5 INH SOL 3 ML VIAL.NEB. NEB SCH ×3 (07:22→12:06)
[2016-11-20] MEDS: AMINO ACIDS/PROTEIN HYDROLYS 30 ML LIQUID.PKT PO SCH ×2 (07:55→17:35)
[2016-11-20] MEDS: TAMSULOSIN HCL 0.4 MG CAP.ER.24H (FP) PO SCH (07:55)
[2016-11-20] MEDS: FERROUS SO4 325 MG TABLET (FP) PO SCH ×2 (07:55→17:35)
--- NOTE | 2016-11-20 08:38 | PN ---
Addendum entered and electronically signed by Jose Miguel Garnett PA 11/20/16 10:27: Patient booked for further excisional debriedment of his left foot for 11/22/16 at 2pm. Original Note: Progress Note (short form) - Note Progress Note: VAC dressing taken down on rounds and wound evaluated. There is evidence of tissue granulation. However, large area of mixed fibrogranular base. Toe adjacent to amputation has blister at base of toe, discolored, foul odor emeating from wound. Dorsal aspect of foot just proximal to toes 3-5 with non-viable tissue approximately 3 x 4 cm. Tissue maceration to plantar aspect. With each dressing change, we continue to excise (via scissors) sheets of tissue. A/P Covered areas of slough with santyl 4x4 in between each toe Packed wound. Kerlix. May need further debridement. VAC on hold until Dr. Ponce sees wound Problem List - Problems (1) Gangrenous toe Code(s): I96 - GANGRENE, NOT ELSEWHERE CLASSIFIED
[2016-11-20] MEDS: POLYETHYLENE GLYCOL 3350 119 GM BTL PO SCH ×2 (10:46→21:42)
[2016-11-20] MEDS: CLOPIDOGREL BISULFATE 75 MG TABLET (FP) PO SCH (10:47)
[2016-11-20] MEDS: LISINOPRIL 20 MG TABLET (FP) PO SCH (10:47)
[2016-11-20] MEDS: MULTIVITAMINS (DAILY MVI) TABLET (FP) PO SCH (10:47)
[2016-11-20] MEDS: ASCORBIC ACID 500 MG TABLET (FP) PO SCH (10:47)
[2016-11-20] MEDS ORDERED: PT OWN MED DRAWER 7, Y5N ONE (11:22)
[2016-11-20] MEDS: amLODIPine BESYLATE 10 MG TABLET (FP) PO SCH (11:24)
--- NOTE | 2016-11-20 11:30 | PN ---
Progress Note, Physician History of Present Illness: no new events stable - Current Medication List Current Medications: Active Medications Acetaminophen (Tylenol -) 650 mg PO Q4H PRN PRN Reason: FEVER OR PAIN Last Admin: 11/11/16 08:36 Dose: 650 mg Albuterol/Ipratropium (Duoneb -) 1 amp NEB QIDR [facility] Last Admin: 11/20/16 07:24 Dose: Not Given Albuterol/Ipratropium (Duoneb -) 1 amp NEB Q4H PRN PRN Reason: SHORTNESS OF BREATH Last Admin: 11/11/16 10:10 Dose: 1 amp Amino Acids (Prosource No Carb Liquid Pkt) 30 ml PO BID@0800,1730 [facility] Last Admin: 11/20/16 07:55 Dose: 30 ml Amlodipine Besylate (Norvasc -) 10 mg PO DAILY [facility] Last Admin: 11/20/16 11:24 Dose: 10 mg Ascorbic Acid (Vitamin C -) 500 mg PO DAILY [facility] Last Admin: 11/20/16 10:47 Dose: 500 mg Clopidogrel Bisulfate (Plavix -) 75 mg PO DAILY [facility] Last Admin: 11/20/16 10:47 Dose: 75 mg Docusate Sodium (Colace -) 100 mg PO TID [facility] Last Admin: 11/20/16 05:32 Dose: 100 mg Ferrous Sulfate (Feosol -) 325 mg PO BIDWM [facility] Last Admin: 11/20/16 07:55 Dose: 325 mg Guaifenesin (Robitussin Dm -) 5 ml PO Q6H PRN PRN Reason: COUGH Last Admin: 11/18/16 19:46 Dose: 5 ml Heparin Sodium (Porcine) (Heparin -) 5,000 unit SQ TID [facility] Last Admin: 11/20/16 05:32 Dose: 5,000 unit IV Flush (Picc Line Flush) 8 ml IVPUSH PRN PRN PRN Reason: Protocol Vancomycin HCl 1,500 mg/ (Dextrose) 500 mls @ 250 mls/hr IVPB DAILY@1400 SANGEETHA PRN Reason: Protocol Last Admin: 11/19/16 15:00 Dose: 250 mls/hr Insulin Aspart (Novolog Vial Sliding Scale -) 1 vial SQ ACHS [facility] PRN Reason: Protocol Last Admin: 11/20/16 06:13 Dose: Not Given Insulin Detemir (Levemir Vial) 7 units SQ HS [facility] Last Admin: 11/19/16 21:10 Dose: 7 units Insulin Detemir (Levemir Vial) 12 units SQ AM [facility] Last Admin: 11/20/16 06:17 Dose: 12 units Lisinopril (Prinivil) 40 mg PO DAILY [facility] Last Admin: 11/20/16 10:47 Dose: 40 mg Multivitamins/Minerals/Vitamin C (Tab-A-Vit -) 1 tab PO DAILY [facility] Last Admin: 11/20/16 10:47 Dose: 1 tab Polyethylene Glycol (Miralax (For Daily Use) -) 17 gm PO BID [facility] Last Admin: 11/20/16 10:46 Dose: 17 gm Rosuvastatin Calcium (Crestor -) 20 mg PO [facility] Last Admin: 11/19/16 21:10 Dose: 20 mg Tamsulosin HCl (Flomax -) 0.8 mg PO DAILY@0830 [facility] Last Admin: 11/20/16 07:55 Dose: 0.8 mg - Objective Vital Signs: Vital Signs Temperature 97.5 F L 11/20/16 06:00 Pulse Rate 94 H 11/20/16 06:00 Respiratory Rate 20 11/20/16 06:00 Blood Pressure 145/88 11/20/16 06:00 O2 Sat by Pulse Oximetry (%) 98 11/19/16 21:00 Constitutional: Yes: No Distress, Calm Cardiovascular: Yes: Regular Rate and Rhythm Respiratory: Yes: Regular, CTA Bilaterally Gastrointestinal: Yes: Normal Bowel Sounds, Soft Musculoskeletal: Yes: Other Extremities: Yes: Other Neurological: Yes: Alert, Oriented Psychiatric: Yes: Alert, Oriented Labs: CBC, BMP 11/16/16 07:00 11/11/16 10:31 INR, PTT INR 1.36 (0.82-1.09) H 10/24/16 07:50 Assessment/Plan osteo of the left toe wound infection dm fever leukocytosis wbc normal plan continue abx wound care vanco complete the course as planned
[2016-11-20] MEDS ORDERED: INSULIN (NOVOLOG) ASPART 100 UNITS/ML 10ML VIAL ONE ×2 (12:15→17:33)
--- NOTE | 2016-11-20 14:18 | PN ---
Progress Note (short form) - Note Progress Note: Vascular Surgery Pt seen and examined. Left foot dressing changed. Good granulation tissue over bone. However forefoot has necrotic patch of skin. Will need debridement on friday at 2pm. Booked already. If pt were to leave today to [place], will probably return to hospital. Will do wet to dry dressing now. Will need washout and can leave on friday. Spoke to social service, pt has room on hold at [facility]. Luis Manuel Ponce DO
--- NOTE | 2016-11-20 15:55 | PN ---
Teaching Attending Note Name of Resident: Edward Chamberlain ATTENDING PHYSICIAN STATEMENT I saw and evaluated the patient. I reviewed the resident's note and discussed the case with the resident. I agree with the resident's findings and plan as documented. SUBJECTIVE:c/o nonproductive cough on deep inspiration. no fever chills, CP, SOB or palpitations. OBJECTIVE: Last Vital Signs Temp Pulse Resp BP Pulse Ox 98.1 F 101 H 22 144/77 98 11/20/16 14:35 11/20/16 14:35 11/20/16 14:35 11/20/16 14:35 11/19/16 21:00 General NAD, CV S1 S2 RRR no murmur/rub/gallop Lungs CTA B/L no wheezing/rales/rhonchi Extremities-L foot in clean dry dressing ASSESSMENT AND PLAN: 56yo M with PMH DM presented to the ER and was admitted for further evalution of their emergent condition 1. 1st toe L foot OM-afebrile. wound vac removed and when evaluated by vascular surgeon noted to have necrotic tissue and will require further debridement. plan for Friday pending on results of debridement may still require BKA. on Vanco for additional 5 days. wound management per [facility]. 2. non-productive cough- nothing appreciated on exam. since afebrile with no leukocytosis will hold off on imaging at this time. encouraged to use incentive spirometer. if worsens will consider XR 3. Microcytic anemia-anemia of chronic disease. received total of 4 units PRBC this admission. on iron supplements. transfuse for hgb <7 4. Acute metabolic encephalopathy- with superimposed subacute CVA. imaging studies done. evaluate by neuro and cardio. start statin. echo done. on plavix 5. DM- A1c 12.4. improved. cont current dosing. iss,bgm, levemir BID. 6. HTN- above goal. will start low dose hydralazine and monitor. cont acei and d /c norvasc 7. DVT ppx- hep sq.
[2016-11-20] MEDS: VANCOMYCIN 1,500 MG in DEXTROSE 5%-WATER - 500 ML IVPB SCH (16:59)
--- NOTE | 2016-11-20 17:30 | PN ---
Physical Exam: SUBJECTIVE: Patient seen and examined at bedside. He has no complaint and no acute events overnight. OBJECTIVE: Vital Signs Period Temp Pulse Resp BP Sys/Lopez Pulse Ox Last 24 Hr 97.5 F-98.1 F 89-101 20-22 144-155/77-93 96-98 GENERAL: AAOx3, mental status at hospital baseline, no respiratory distress EYES: sclera anicteric, conjunctiva clear ENT: oropharynx clear without exudates LUNGS: CTAB HEART: Tachycardic, S1 and S2 present,No murmur ABDOMEN: +bs, soft, non-tender EXTREMITIES: L foot wound vac in place Laboratory Results - last 24 hr 11/19/16 11/19/16 11/20/16 17:49 21:14 05:28 POC Glucometer 202 162 130 11/20/16 11/20/16 11:27 16:41 POC Glucometer 171 219 Active Medications Generic Name Dose Route Start Last Admin Trade Name Freq PRN Reason Stop Dose Admin Acetaminophen 650 mg 11/05/16 14:11 11/11/16 08:36 Tylenol - PO 650 mg Q4H PRN Administration FEVER OR PAIN Albuterol/Ipratropium 1 amp 11/11/16 08:51 11/11/16 10:10 Duoneb - NEB 1 amp Q4H PRN Administration SHORTNESS OF BREATH Amino Acids 30 ml 11/08/16 17:30 11/20/16 07:55 Prosource No Carb Liquid Pkt PO 30 ml BID@0800,1730 SANGE[facility]HA Administration Amlodipine Besylate 10 mg 11/13/16 10:00 11/20/16 11:24 Norvasc - PO 10 mg DAILY SANGEETHA Administration Ascorbic Acid 500 mg 11/09/16 10:00 11/20/16 10:47 Vitamin C - PO 500 mg DAILY SANGEETHA Administration Clopidogrel Bisulfate 75 mg 11/06/16 10:00 11/20/16 10:47 Plavix - PO 75 mg DAILY SANGEETHA Administration Docusate Sodium 100 mg 11/05/16 22:00 11/20/16 14:32 Colace - PO 100 mg TID SANGEETHA Administration Ferrous Sulfate 325 mg 11/05/16 17:30 11/20/16 07:55 Feosol - PO 325 mg BIDWM SANGEETHA Administration Guaifenesin 5 ml 11/09/16 04:15 11/18/16 19:46 Robitussin Dm - PO 5 ml Q6H PRN Administration COUGH Heparin Sodium (Porcine) 5,000 unit 11/14/16 06:15 11/20/16 14:32 Heparin - SQ 5,000 unit TID SANGEETHA Administration IV Flush 8 ml 11/15/16 13:45 Picc Line Flush IVPUSH PRN PRN Protocol Vancomycin HCl 1,500 mg/ 500 mls @ 250 mls/hr 11/17/16 14:00 11/20/16 16:59 Dextrose IVPB 250 mls/hr DAILY@1400 SANGEETHA Administration Protocol Insulin Aspart 1 vial 11/05/16 16:30 11/20/16 12:18 Novolog Vial Sliding Scale - SQ 2 units ACHS [facility] Administration Protocol Insulin Detemir 7 units 11/13/16 08:04 11/19/16 21:10 Levemir Vial SQ 7 units HS SANGEETHA Administration Insulin Detemir 12 units 11/13/16 08:04 11/20/16 06:17 Levemir Vial SQ 12 units AM SANGEETHA Administration Lisinopril 40 mg 11/19/16 10:00 11/20/16 10:47 Prinivil PO 40 mg DAILY SANGEETHA Administration Multivitamins/Minerals/Vitamin C 1 tab 11/09/16 10:00 11/20/16 10:47 Tab-A-Vit - PO 1 tab DAILY [facility] Administration Polyethylene Glycol 17 gm 11/09/16 10:15 11/20/16 10:46 Miralax (For Daily Use) - PO 17 gm BID SANGEETHA Administration Rosuvastatin Calcium 20 mg 11/19/16 22:00 11/19/16 21:10 Crestor - PO 20 mg HS SANGEETHA Administration Tamsulosin HCl 0.8 mg 11/16/16 08:30 11/20/16 07:55 Flomax - PO 0.8 mg DAILY@0830 [facility] Administration ASSESSMENT/PLAN: 56 yo M with h/o uncontrolled DMII admitted for L foot osteomyelitis. Osteomyelitis, L first toe - Cont. Vanco till 11/21 - New necrotic tissue noted on dressing change * Further debridement scheduled on Friday 2pm Urinary retention - Likely 2/2 BPH - Delgado d/c - Monitor urine output Altered mental status, mild - Now at hospital baseline * patient was more lucid at home per - Likely toxic metabolic - MRI shows tint infarct L subcortical Dyspea 2/2 pleural effusion - Resolved - Lasix PRN and spirometry Normocytic anemia - Stable IDDM - Cont. sliding scale and cont. levemir 7/12 units BID HTN - Cont. norvasc 10mg daily and lisnopril 40mg daily FEN - IVF not indicated - Normal lytes - Diabetic/Sodium diet + prosource Prophylaxis - DVT: heparin - GI: not indicated Disposition - Accepted by Richie Shabazz - Discharge on hold due to further surgical debridement of foot needed - Discharge planned next Friday Code status - Full Visit type - Emergency Visit Emergency Visit: No - New Patient This patient is new to me today: No - Critical Care Critical Care patient: No
[2016-11-20] MEDS: ALBUTEROL SO4 2.5/IPRATROPIUM 0.5 INH SOL 3 ML VIAL.NEB. NEB PRN (19:06)
[2016-11-20] MEDS: guaiFENesin/D-METHORPHAN HB 10 ML UNIT-DOSE CUPS PO PRN (20:24)
[2016-11-20] MEDS: ROSUVASTATIN CA 20 MG TABLET (FP) PO SCH (21:41)
[2016-11-21] MEDS: HEPARIN NA (PORCINE) 5,000 UNITS/ML 1ML VIAL SQ SCH ×3 (06:37→22:38)
[2016-11-21] MEDS: INSULIN DETEMIR 100 UNITS/ML MDV SQ SCH ×2 (06:37→22:39)
[2016-11-21] MEDS: DOCUSATE SODIUM 100 MG CAPSULE (FP) PO SCH ×3 (06:37→22:38)
[2016-11-21] MEDS: INSULIN SLIDING SCALE (NOVOLOG) 1 VIAL SQ SCH ×4 (06:38→22:42)
[2016-11-21] MEDS ORDERED: INSULIN DETEMIR 100 UNITS/ML MDV SQ SCH (07:36)
[2016-11-21] MEDS: TAMSULOSIN HCL 0.4 MG CAP.ER.24H (FP) PO SCH (08:15)
[2016-11-21] MEDS: FERROUS SO4 325 MG TABLET (FP) PO SCH ×2 (08:15→17:21)
[2016-11-21] MEDS: AMINO ACIDS/PROTEIN HYDROLYS 30 ML LIQUID.PKT PO SCH ×2 (08:15→17:22)
[2016-11-21] MEDS: amLODIPine BESYLATE 10 MG TABLET (FP) PO SCH (10:55)
[2016-11-21] MEDS: LISINOPRIL 20 MG TABLET (FP) PO SCH (10:55)
[2016-11-21] MEDS: MULTIVITAMINS (DAILY MVI) TABLET (FP) PO SCH (10:55)
[2016-11-21] MEDS: ASCORBIC ACID 500 MG TABLET (FP) PO SCH (10:55)
[2016-11-21] MEDS: CLOPIDOGREL BISULFATE 75 MG TABLET (FP) PO SCH (10:56)
[2016-11-21] MEDS: POLYETHYLENE GLYCOL 3350 119 GM BTL PO SCH ×2 (10:57→22:39)
--- NOTE | 2016-11-21 13:11 | PN ---
Teaching Attending Note Name of Resident: Edward Chamberlain ATTENDING PHYSICIAN STATEMENT I saw and evaluated the patient. I reviewed the resident's note and discussed the case with the resident. I agree with the resident's findings and plan as documented. SUBJECTIVE:continues to have non-productive cough. denies fever, chills, N/V/C/D OBJECTIVE: Last Vital Signs Temp Pulse Resp BP Pulse Ox 98 F 97 H 20 140/80 96 11/21/16 10:00 11/21/16 11:55 11/21/16 10:00 11/21/16 10:00 11/21/16 11:55 General NAD, Lungs CTA B/L no wheezing/rales/rhonchi ASSESSMENT AND PLAN: 56yo M with PMH DM presented to the ER and was admitted for further evalution of their emergent condition 1. 1st toe L foot OM-afebrile. NPO tonight for debridement in AM. may require BKA. management per vascular. on Vanco (completes course saturday 11/25) 2. non-productive cough- persists. afebrile. offered CXR but pt refused. encouraged to use incentive spirometer. 3. Microcytic anemia-anemia of chronic disease. received total of 4 units PRBC this admission. on iron supplements. transfuse for hgb <7 4. Acute metabolic encephalopathy- with superimposed subacute CVA. imaging studies done. evaluate by neuro and cardio. on statin/plavix 5. DM- A1c 12.4. increase levemir am dosing to 14units in AM. cont iss,bgm 6. HTN- above goal. monitor. on acei/norvasc 7. DVT ppx- hep sq.
--- NOTE | 2016-11-21 14:23 | PN ---
Progress Note, Physician History of Present Illness: stable no new issues just very fatigued - Current Medication List Current Medications: Active Medications Acetaminophen (Tylenol -) 650 mg PO Q4H PRN PRN Reason: FEVER OR PAIN Last Admin: 11/11/16 08:36 Dose: 650 mg Albuterol/Ipratropium (Duoneb -) 1 amp NEB Q4H PRN PRN Reason: SHORTNESS OF BREATH Last Admin: 11/20/16 19:06 Dose: 1 amp Amino Acids (Prosource No Carb Liquid Pkt) 30 ml PO BID@0800,1730 [facility] Last Admin: 11/21/16 08:15 Dose: 30 ml Amlodipine Besylate (Norvasc -) 10 mg PO DAILY [facility] Last Admin: 11/21/16 10:55 Dose: 10 mg Ascorbic Acid (Vitamin C -) 500 mg PO DAILY [facility] Last Admin: 11/21/16 10:55 Dose: 500 mg Clopidogrel Bisulfate (Plavix -) 75 mg PO DAILY [facility] Last Admin: 11/21/16 10:56 Dose: 75 mg Docusate Sodium (Colace -) 100 mg PO TID [facility] Last Admin: 11/21/16 06:37 Dose: 100 mg Ferrous Sulfate (Feosol -) 325 mg PO BIDWM [facility] Last Admin: 11/21/16 08:15 Dose: 325 mg Guaifenesin (Robitussin Dm -) 5 ml PO Q6H PRN PRN Reason: COUGH Last Admin: 11/20/16 20:24 Dose: 5 ml Heparin Sodium (Porcine) (Heparin -) 5,000 unit SQ TID [facility] Last Admin: 11/21/16 06:37 Dose: 5,000 unit IV Flush (Picc Line Flush) 8 ml IVPUSH PRN PRN PRN Reason: Protocol Vancomycin HCl 1,500 mg/ (Dextrose) 500 mls @ 250 mls/hr IVPB DAILY@1400 [facility] PRN Reason: Protocol Last Admin: 11/20/16 16:59 Dose: 250 mls/hr Insulin Aspart (Novolog Vial Sliding Scale -) 1 vial SQ ACHS [facility] PRN Reason: Protocol Last Admin: 11/21/16 12:21 Dose: 2 units Insulin Detemir (Levemir Vial) 7 units SQ HS [facility] Last Admin: 11/20/16 21:42 Dose: 7 units Insulin Detemir (Levemir Vial) 14 units SQ AM [facility] Lisinopril (Prinivil) 40 mg PO DAILY [facility] Last Admin: 11/21/16 10:55 Dose: 40 mg Multivitamins/Minerals/Vitamin C (Tab-A-Vit -) 1 tab PO DAILY [facility] Last Admin: 11/21/16 10:55 Dose: 1 tab Polyethylene Glycol (Miralax (For Daily Use) -) 17 gm PO BID [facility] Last Admin: 11/21/16 10:57 Dose: 17 gm Rosuvastatin Calcium (Crestor -) 20 mg PO HS [facility] Last Admin: 11/20/16 21:41 Dose: 20 mg Tamsulosin HCl (Flomax -) 0.8 mg PO DAILY@0830 [facility] Last Admin: 11/21/16 08:15 Dose: 0.8 mg - Objective Vital Signs: Vital Signs Temperature 97.6 F 11/21/16 14:16 Pulse Rate 98 H 11/21/16 14:16 Respiratory Rate 20 11/21/16 14:16 Blood Pressure 156/88 11/21/16 14:16 O2 Sat by Pulse Oximetry (%) 96 11/21/16 11:55 Constitutional: Yes: No Distress, Calm Cardiovascular: Yes: Regular Rate and Rhythm Respiratory: Yes: Regular, CTA Bilaterally Gastrointestinal: Yes: Normal Bowel Sounds, Soft Musculoskeletal: Yes: Other Extremities: Yes: Other Neurological: Yes: Alert, Oriented Psychiatric: Yes: Alert Labs: CBC, BMP 11/16/16 07:00 11/11/16 10:31 INR, PTT INR 1.36 (0.82-1.09) H 10/24/16 07:50 Assessment/Plan osteo of the left toe wound infection dm fever leukocytosis plan continue abx wound care vanco complete the course as planned vascular note noted patient for debridement on friday
[2016-11-21] MEDS: VANCOMYCIN 1,500 MG in DEXTROSE 5%-WATER - 500 ML IVPB SCH (14:33)
--- NOTE | 2016-11-21 16:47 | PN ---
Physical Exam: SUBJECTIVE: Patient seen and examined at bedside. He has no complaint and no acute events overnight. OBJECTIVE: Vital Signs Period Temp Pulse Resp BP Sys/Lopez Pulse Ox Last 24 Hr 97.6 F-98.5 F 97-102 20-22 140-156/77-88 96-96 GENERAL: AAOx3, mental status at hospital baseline, no respiratory distress EYES: sclera anicteric, conjunctiva clear ENT: oropharynx clear without exudates LUNGS: CTAB HEART: Tachycardic, S1 and S2 present,No murmur ABDOMEN: +bs, soft, non-tender EXTREMITIES: L foot wound vac in place Laboratory Results - last 24 hr 11/20/16 11/20/16 11/21/16 16:41 20:46 06:32 POC Glucometer 219 220 160 11/21/16 12:06 POC Glucometer 167 Active Medications Generic Name Dose Route Start Last Admin Trade Name Freq PRN Reason Stop Dose Admin Acetaminophen 650 mg 11/05/16 14:11 11/11/16 08:36 Tylenol - PO 650 mg Q4H PRN Administration FEVER OR PAIN Albuterol/Ipratropium 1 amp 11/11/16 08:51 11/20/16 19:06 Duoneb - NEB 1 amp Q4H PRN Administration SHORTNESS OF BREATH Amino Acids 30 ml 11/08/16 17:30 11/21/16 08:15 Prosource No Carb Liquid Pkt PO 30 ml BID@0800,1730 [facility] Administration Amlodipine Besylate 10 mg 11/13/16 10:00 11/21/16 10:55 Norvasc - PO 10 mg DAILY [facility] Administration Ascorbic Acid 500 mg 11/09/16 10:00 11/21/16 10:55 Vitamin C - PO 500 mg DAILY [facility] Administration Clopidogrel Bisulfate 75 mg 11/06/16 10:00 11/21/16 10:56 Plavix - PO 75 mg DAILY [facility] Administration Docusate Sodium 100 mg 11/05/16 22:00 11/21/16 14:34 Colace - PO 100 mg TID [facility] Administration Ferrous Sulfate 325 mg 11/05/16 17:30 11/21/16 08:15 Feosol - PO 325 mg BIDWM [facility] Administration Guaifenesin 5 ml 11/09/16 04:15 11/20/16 20:24 Robitussin Dm - PO 5 ml Q6H PRN Administration COUGH Heparin Sodium (Porcine) 5,000 unit 11/14/16 06:15 11/21/16 14:33 Heparin - SQ 5,000 unit TID [facility] Administration IV Flush 8 ml 11/15/16 13:45 Picc Line Flush IVPUSH PRN PRN Protocol Vancomycin HCl 1,500 mg/ 500 mls @ 250 mls/hr 11/17/16 14:00 11/21/16 14:33 Dextrose IVPB 250 mls/hr DAILY@1400 [facility] Administration Protocol Insulin Aspart 1 vial 11/05/16 16:30 11/21/16 12:21 Novolog Vial Sliding Scale - SQ 2 units ACHS [facility] Administration Protocol Insulin Detemir 7 units 11/13/16 08:04 11/20/16 21:42 Levemir Vial SQ 7 units HS [facility] Administration Insulin Detemir 14 units 11/21/16 07:36 Levemir Vial SQ AM [facility] Lisinopril 40 mg 11/19/16 10:00 11/21/16 10:55 Prinivil PO 40 mg DAILY [facility] Administration Multivitamins/Minerals/Vitamin C 1 tab 11/09/16 10:00 11/21/16 10:55 Tab-A-Vit - PO 1 tab DAILY [facility] Administration Polyethylene Glycol 17 gm 11/09/16 10:15 11/21/16 10:57 Miralax (For Daily Use) - PO 17 gm BID [facility] Administration Rosuvastatin Calcium 20 mg 11/19/16 22:00 11/20/16 21:41 Crestor - PO 20 mg HS [facility] Administration Tamsulosin HCl 0.8 mg 11/16/16 08:30 11/21/16 08:15 Flomax - PO 0.8 mg DAILY@0830 [facility] Administration ASSESSMENT/PLAN: 56 yo M with h/o uncontrolled DMII admitted for L foot osteomyelitis. Osteomyelitis, L first toe - Cont. Vanco, tomorrow is last day - Debridement scheduled on Friday 2pm Urinary retention - Likely 2/2 BPH - Resolved Altered mental status, mild - Improving - Now at hospital baseline * patient was more lucid at home per - Likely toxic metabolic Dyspea 2/2 pleural effusion - Resolved - Lasix PRN and spirometry Normocytic anemia - Stable IDDM - Cont. sliding scale and cont. levemir 7/14 units BID HTN - Cont. norvasc 10mg daily and lisnopril 40mg daily FEN - IVF not indicated - Normal lytes - Diabetic/Sodium diet + prosource Prophylaxis - DVT: heparin - GI: not indicated Disposition - Accepted by Richie Shabazz - Discharge on hold due to further surgical debridement of foot needed - Discharge planned next Friday Code status - Full Visit type - Emergency Visit Emergency Visit: No - New Patient This patient is new to me today: No - Critical Care Critical Care patient: No - Discharge Referral Referred to [facility] Med P.C.: No
[2016-11-21] MEDS ORDERED: INSULIN DETEMIR 100 UNITS/ML MDV SQ ONE (18:19)
[2016-11-21] MEDS ORDERED: PT OWN MED DRAWER 7, Y5N ONE (18:21)
[2016-11-21] MEDS: ROSUVASTATIN CA 20 MG TABLET (FP) PO SCH (22:38)
[2016-11-22] MEDS: HEPARIN NA (PORCINE) 5,000 UNITS/ML 1ML VIAL SQ SCH ×2 (06:56→21:37)
[2016-11-22] MEDS: DOCUSATE SODIUM 100 MG CAPSULE (FP) PO SCH ×2 (06:56→21:37)
[2016-11-22] MEDS: INSULIN SLIDING SCALE (NOVOLOG) 1 VIAL SQ SCH ×3 (06:57→21:38)
[2016-11-22 07:53] LABS: CALCIUM 8.5 mg/dL (8.5-10.1); COCKROFT - GAULT 132.86; CREATININE 0.8 mg/dL (0.7-1.3)
[2016-11-22] MEDS: FERROUS SO4 325 MG TABLET (FP) PO SCH ×2 (08:42→20:37)
[2016-11-22] MEDS: AMINO ACIDS/PROTEIN HYDROLYS 30 ML LIQUID.PKT PO SCH ×2 (08:42→20:37)
[2016-11-22] MEDS: TAMSULOSIN HCL 0.4 MG CAP.ER.24H (FP) PO SCH (08:43)
--- NOTE | 2016-11-22 11:06 | PN ---
Progress Note, Physician History of Present Illness: stable no new issues patient going to the operating room for further debridement - Current Medication List Current Medications: Active Medications Acetaminophen (Tylenol -) 650 mg PO Q4H PRN PRN Reason: FEVER OR PAIN Last Admin: 11/11/16 08:36 Dose: 650 mg Albuterol/Ipratropium (Duoneb -) 1 amp NEB Q4H PRN PRN Reason: SHORTNESS OF BREATH Last Admin: 11/20/16 19:06 Dose: 1 amp Amino Acids (Prosource No Carb Liquid Pkt) 30 ml PO BID@0800,1730 [facility] Last Admin: 11/22/16 08:42 Dose: Not Given Amlodipine Besylate (Norvasc -) 10 mg PO DAILY [facility] Last Admin: 11/21/16 10:55 Dose: 10 mg Ascorbic Acid (Vitamin C -) 500 mg PO DAILY [facility] Last Admin: 11/21/16 10:55 Dose: 500 mg Clopidogrel Bisulfate (Plavix -) 75 mg PO DAILY [facility] Last Admin: 11/21/16 10:56 Dose: 75 mg Docusate Sodium (Colace -) 100 mg PO TID [facility] Last Admin: 11/22/16 06:56 Dose: 100 mg Ferrous Sulfate (Feosol -) 325 mg PO BIDWM [facility] Last Admin: 11/22/16 08:42 Dose: Not Given Guaifenesin (Robitussin Dm -) 5 ml PO Q6H PRN PRN Reason: COUGH Last Admin: 11/20/16 20:24 Dose: 5 ml Heparin Sodium (Porcine) (Heparin -) 5,000 unit SQ TID [facility] Last Admin: 11/22/16 06:56 Dose: Not Given IV Flush (Picc Line Flush) 8 ml IVPUSH PRN PRN PRN Reason: Protocol Vancomycin HCl 1,500 mg/ (Dextrose) 500 mls @ 250 mls/hr IVPB DAILY@1400 [facility] PRN Reason: Protocol Last Admin: 11/21/16 14:33 Dose: 250 mls/hr Insulin Aspart (Novolog Vial Sliding Scale -) 1 vial SQ ACHS [facility] PRN Reason: Protocol Last Admin: 11/22/16 06:57 Dose: Not Given Insulin Detemir (Levemir Vial) 7 units SQ HS [facility] Last Admin: 11/21/16 22:39 Dose: 7 units Insulin Detemir (Levemir Vial) 14 units SQ AM [facility] Last Admin: 11/22/16 06:57 Dose: Not Given Lisinopril (Prinivil) 40 mg PO DAILY [facility] Last Admin: 11/21/16 10:55 Dose: 40 mg Multivitamins/Minerals/Vitamin C (Tab-A-Vit -) 1 tab PO DAILY [facility] Last Admin: 11/21/16 10:55 Dose: 1 tab Polyethylene Glycol (Miralax (For Daily Use) -) 17 gm PO BID [facility] Last Admin: 11/21/16 22:39 Dose: 17 gm Rosuvastatin Calcium (Crestor -) 20 mg PO HS [facility] Last Admin: 11/21/16 22:38 Dose: 20 mg Tamsulosin HCl (Flomax -) 0.8 mg PO DAILY@0830 [facility] Last Admin: 11/22/16 08:43 Dose: Not Given - Objective Vital Signs: Vital Signs Temperature 97.7 F 11/22/16 08:00 Pulse Rate 88 11/22/16 08:00 Respiratory Rate 20 11/22/16 08:00 Blood Pressure 150/80 11/22/16 08:00 O2 Sat by Pulse Oximetry (%) 96 11/21/16 21:00 Constitutional: Yes: Calm, Other Cardiovascular: Yes: Regular Rate and Rhythm Respiratory: Yes: Regular, CTA Bilaterally Gastrointestinal: Yes: Normal Bowel Sounds, Soft Musculoskeletal: Yes: Other Extremities: Yes: Other Wound/Incision: Yes: Dressing Dry and Intact Neurological: Yes: Alert, Oriented Psychiatric: Yes: Alert Labs: CBC, BMP 11/16/16 07:00 11/22/16 06:25 INR, PTT INR 1.36 (0.82-1.09) H 10/24/16 07:50 Assessment/Plan osteo of the left toe wound infection dm fever leukocytosis plan continue abx wound care patient going to or should send cx from or again to see if anything is growing
--- NOTE | 2016-11-22 11:28 | PN ---
Teaching Attending Note Name of Resident: Edward Chamberlain ATTENDING PHYSICIAN STATEMENT I saw and evaluated the patient. I reviewed the resident's note and discussed the case with the resident. I agree with the resident's findings and plan as documented. SUBJECTIVE:states cough has improved, remains non-productive. denies CP, SOB, fever, chills, N/V/C/D OBJECTIVE: Last Vital Signs Temp Pulse Resp BP Pulse Ox 97.7 F 88 20 150/80 96 11/22/16 08:00 11/22/16 08:00 11/22/16 08:00 11/22/16 08:00 11/21/16 21:00 General NAD, Lungs CTA B/L no wheezing/rales/rhonchi ASSESSMENT AND PLAN: 56yo M with PMH DM presented to the ER and was admitted for further evalution of their emergent condition 1. 1st toe L foot OM-afebrile. NPO for debridement. may require BKA. re-culture from procedure if possible. management per vascular. on Vanco today is last dose (mis-calculated dose previously). will wait for cx results from today if negative. 2. non-productive cough-improved. afebrile. encouraged to use incentive spirometer. 3. Microcytic anemia-anemia of chronic disease. received total of 4 units PRBC this admission. on iron supplements. transfuse for hgb <7 4. Acute metabolic encephalopathy- with superimposed subacute CVA. imaging studies done. evaluate by neuro and cardio. on statin/plavix 5. DM- A1c 12.4. improved cont levemir/iss,bgm 6. HTN- above goal.switch norvasc to nifedipine 30mg. cont acei 7. DVT ppx- hep sq.
[2016-11-22] MEDS: VANCOMYCIN 1,500 MG in DEXTROSE 5%-WATER - 500 ML IVPB SCH (13:09)
[2016-11-22] MEDS: POLYETHYLENE GLYCOL 3350 119 GM BTL PO SCH ×2 (13:10→21:38)
[2016-11-22] MEDS: CLOPIDOGREL BISULFATE 75 MG TABLET (FP) PO SCH (13:10)
[2016-11-22] MEDS: LISINOPRIL 20 MG TABLET (FP) PO SCH (13:10)
[2016-11-22] MEDS: MULTIVITAMINS (DAILY MVI) TABLET (FP) PO SCH (13:10)
[2016-11-22] MEDS: ASCORBIC ACID 500 MG TABLET (FP) PO SCH (13:10)
--- NOTE | 2016-11-22 14:46 | PN ---
Physical Exam: SUBJECTIVE: Patient seen and examined at bedside. He has no complaint and no acute events overnight. OBJECTIVE: Vital Signs Period Temp Pulse Resp BP Sys/Lopez Pulse Ox Last 24 Hr 97.7 F-97.9 F 88-96 18-20 133-150/80-89 95-96 GENERAL: AAOx3, mental status at hospital baseline, no respiratory distress EYES: sclera anicteric, conjunctiva clear ENT: oropharynx clear without exudates LUNGS: CTAB HEART: RRR, S1 and S2 present,No murmur ABDOMEN: +bs, soft, non-tender EXTREMITIES: dressing in place CMP Sodium 142 mmol/L (136-145) 11/22/16 06:25 Potassium 4.2 mmol/L (3.5-5.1) 11/22/16 06:25 Chloride 103 mmol/L (98-107) 11/22/16 06:25 Carbon Dioxide 31 mmol/L (21-32) 11/22/16 06:25 Anion Gap 8 (8-16) 11/22/16 06:25 BUN 20 mg/dL (7-18) H D 11/22/16 06:25 Creatinine 0.8 mg/dL (0.7-1.3) 11/22/16 06:25 Creat Clearance w eGFR > 60 (>60) 11/11/16 10:31 Calcium 8.5 mg/dL (8.5-10.1) 11/22/16 06:25 Total Bilirubin 0.3 mg/dL (0.2-1.0) D 11/11/16 10:31 AST 16 U/L (15-37) D 11/11/16 10:31 ALT 19 U/L (12-78) D 11/11/16 10:31 Alkaline Phosphatase 215 U/L (45-117) H D 11/11/16 10:31 Total Protein 7.0 g/dl (6.4-8.2) 11/11/16 10:31 Albumin 1.8 g/dl (3.4-5.0) L 11/11/16 10:31 Active Medications Generic Name Dose Route Start Last Admin Trade Name Freq PRN Reason Stop Dose Admin Acetaminophen 650 mg 11/05/16 14:11 11/11/16 08:36 Tylenol - PO 650 mg Q4H PRN Administration FEVER OR PAIN Albuterol/Ipratropium 1 amp 11/11/16 08:51 11/20/16 19:06 Duoneb - NEB 1 amp Q4H PRN Administration SHORTNESS OF BREATH Amino Acids 30 ml 11/08/16 17:30 11/22/16 08:42 Prosource No Carb Liquid Pkt PO Not Given BID@0800,1730 [facility] Ascorbic Acid 500 mg 11/09/16 10:00 11/22/16 13:10 Vitamin C - PO Not Given DAILY [facility] Clopidogrel Bisulfate 75 mg 11/06/16 10:00 11/22/16 13:10 Plavix - PO Not Given DAILY [facility] Docusate Sodium 100 mg 11/05/16 22:00 11/22/16 06:56 Colace - PO 100 mg TID [facility] Administration Ferrous Sulfate 325 mg 11/05/16 17:30 11/22/16 08:42 Feosol - PO Not Given BIDWM [facility] Guaifenesin 5 ml 11/09/16 04:15 11/20/16 20:24 Robitussin Dm - PO 5 ml Q6H PRN Administration COUGH Heparin Sodium (Porcine) 5,000 unit 11/14/16 06:15 11/22/16 06:56 Heparin - SQ Not Given TID [facility] IV Flush 8 ml 11/15/16 13:45 Picc Line Flush IVPUSH PRN PRN Protocol Vancomycin HCl 1,500 mg/ 500 mls @ 250 mls/hr 11/17/16 14:00 11/22/16 13:09 Dextrose IVPB 250 mls/hr DAILY@1400 [facility] Administration Protocol Insulin Aspart 1 vial 11/05/16 16:30 11/22/16 13:09 Novolog Vial Sliding Scale - SQ Not Given ACHS [facility] Protocol Insulin Detemir 7 units 11/13/16 08:04 11/21/16 22:39 Levemir Vial SQ 7 units HS [facility] Administration Insulin Detemir 14 units 11/21/16 07:36 11/22/16 06:57 Levemir Vial SQ Not Given AM [facility] Lisinopril 40 mg 11/19/16 10:00 11/22/16 13:10 Prinivil PO Not Given DAILY [facility] Multivitamins/Minerals/Vitamin C 1 tab 11/09/16 10:00 11/22/16 13:10 Tab-A-Vit - PO Not Given DAILY [facility] Nifedipine 30 mg 11/23/16 10:00 Procardia Xl - PO DAILY [facility] Polyethylene Glycol 17 gm 11/09/16 10:15 11/22/16 13:10 Miralax (For Daily Use) - PO Not Given BID [facility] Rosuvastatin Calcium 20 mg 11/19/16 22:00 11/21/16 22:38 Crestor - PO 20 mg HS [facility] Administration Tamsulosin HCl 0.8 mg 11/16/16 08:30 11/22/16 08:43 Flomax - PO Not Given DAILY@0830 [facility] ASSESSMENT/PLAN: 56 yo M with h/o uncontrolled DMII admitted for L foot osteomyelitis. Osteomyelitis, L first toe - Cont. Vanco last day - Awaiting debridement by vascular Urinary retention - Likely 2/2 BPH - Resolved Altered mental status, mild - Improving - Now at hospital baseline * patient was more lucid at home per - Likely toxic metabolic Dyspea 2/2 pleural effusion - Resolved - Lasix PRN and spirometry Normocytic anemia - Stable IDDM - Cont. sliding scale and cont. levemir 7/14 units BID HTN - Cont. norvasc 10mg daily and lisnopril 40mg daily FEN - IVF not indicated - Normal lytes - NPO Prophylaxis - DVT: heparin - GI: not indicated Disposition - Accepted by Richie Shabazz - Discharge by Friday if there's no complication Code status - Full Visit type - Emergency Visit Emergency Visit: No - New Patient This patient is new to me today: No - Critical Care Critical Care patient: No
[2016-11-22] MEDS ORDERED: LIDOCAINE HCL 1%, 10 MG/ML (20ML VIAL) ONE (14:56)
[2016-11-22] MEDS ORDERED: MIDAZOLAM HCL 2 MG/2 ML SINGLE DOSE VIAL ONE (15:20)
[2016-11-22] MEDS ORDERED: LIDOCAINE HCL 1%, 10 MG/ML (50 mL VIAL) IJ ONE (15:30)
[2016-11-22] MEDS ORDERED: ONDANSETRON 4 MG/2 ML VIAL IVPUSH PRN ×2 (15:47→16:35)
--- NOTE | 2016-11-22 15:52 | OP ---
Operative Note - Note: Operative Date: 11/22/16 Pre-Operative Diagnosis: Necrotic left foot Operation: Excisional debridement skin, subcutaneous tissue, muscle, tendon Findings: necrotic tissue Implants: cx's taken Post-Operative Diagnosis: Same as Pre-op Surgeon: Luis Manuel Ponce Anesthesia: Fractional Estimated Blood Loss (mls): 30 Operative Report Dictated: Yes
[2016-11-22] MEDS ORDERED: SODIUM CHLORIDE 1,000 ML IV SCH (16:00)
[2016-11-22] MEDS ORDERED: ALBUTEROL SO4 2.5/IPRATROPIUM 0.5 INH SOL 3 ML VIAL.NEB. NEB PRN (16:35)
[2016-11-22] MEDS ORDERED: guaiFENesin/D-METHORPHAN HB 10 ML UNIT-DOSE CUPS PO PRN (16:35)
[2016-11-22] MEDS: SODIUM CHLORIDE 1,000 ML IV SCH (20:35)
[2016-11-22] MEDS: ROSUVASTATIN CA 20 MG TABLET (FP) PO SCH (21:37)
[2016-11-22] MEDS: INSULIN DETEMIR 100 UNITS/ML MDV SQ SCH (21:37)
--- NOTE | 2016-11-22 22:52 | PN ---
Mental Health Exam - Mental Status Exam Alert and Oriented to: Time, Place, Person Cognitive Function: Grossly Intact Patient Appearance: Well Groomed Mood: Suspicious (gaurded with senior medical writer. ) Affect: Mood Congruent Patient Behavior: Fatigued, Guarded, Cooperative Speech Pattern: Clear Voice Loudness: Mildly Soft/Quiet Thought Process: Intact Thought Disorder: Not Present Hallucinations: None, Denies Suicidal Ideation: None, Denies Homicidal Ideation: None, Denies Insight/Judgement: Fair Sleep: Fair Appetite: Poor (lost appetite, he stated. ) Muscle strength/Tone: Normal Gait/Station: Deferred (has foot surgery today.)
--- NOTE | 2016-11-22 22:58 | PN ---
Progress Note (short form) - Note Progress Note: patient is mid 51 male with no past psych history. Client guarded on interview "i am not psycho". Denies si hi ah or vh. Client may have been confused recently due to abnormal metabolic state, infection. Has HTN history, DM hba1c is 1.4. denies alcohol or drugs. Stated he has decreased appetite and more depressed mood. Impression Client metal status is more clear, alet and orientated by 4, no psychosis, no sever depression or Fernanda present. Adjustment disorder to current medical/surgical conditions. Thank you for consult.
[2016-11-23] MEDS: DOCUSATE SODIUM 100 MG CAPSULE (FP) PO SCH ×3 (06:40→21:24)
[2016-11-23] MEDS: HEPARIN NA (PORCINE) 5,000 UNITS/ML 1ML VIAL SQ SCH ×3 (06:41→21:24)
[2016-11-23] MEDS: INSULIN DETEMIR 100 UNITS/ML MDV SQ SCH ×2 (06:41→21:25)
[2016-11-23] MEDS: INSULIN SLIDING SCALE (NOVOLOG) 1 VIAL SQ SCH ×4 (06:41→21:26)
[2016-11-23 07:58] LABS: BASOPHIL 0.9 % (0-2.0); EOSINOPHIL 2.4 % (0-4.5); MCH 28.3 pg (25.7-33.7); MCHC 33.3 g/dl (32.0-35.9); MEAN CELL VOLUME 85.1 fl (80-96); MEAN PLT VOLUME 6.9 fl (7.5-11.1); NEUTROPHILS 69.1 % (42.8-82.8); PLATELET COUNT 376 K/MM3 (134-434); RDW 16.2 % (11.9-15.9); WHITE BLOOD COUNT 6.3 K/mm3 (4.0-10.0)
[2016-11-23] MEDS: AMINO ACIDS/PROTEIN HYDROLYS 30 ML LIQUID.PKT PO SCH ×2 (08:30→17:23)
[2016-11-23] MEDS: FERROUS SO4 325 MG TABLET (FP) PO SCH ×2 (08:30→17:23)
[2016-11-23] MEDS: TAMSULOSIN HCL 0.4 MG CAP.ER.24H (FP) PO SCH (08:35)
[2016-11-23] MEDS: SODIUM CHLORIDE 1,000 ML IV SCH (08:36)
[2016-11-23] MEDS: ACETAMINOPHEN 325 MG TABLET (FP) PO PRN (08:40)
--- NOTE | 2016-11-23 09:20 | PN ---
Progress Note (short form) - Note Progress Note: Anesthesia Post op Alert and awake Vital Signs Temperature 98.8 F 11/23/16 09:08 Pulse Rate 90 11/23/16 09:08 Respiratory Rate 92 H 11/23/16 09:08 Blood Pressure 157/89 11/23/16 09:08 O2 Sat by Pulse Oximetry (%) 94 L 11/22/16 21:00 CBC, BMP 11/23/16 07:25 11/22/16 06:25 Current Active Problems Gangrenous toe (Acute) Osteomyelitis (Acute) Hypertension (Chronic) Insulin dependent diabetes mellitus (Chronic) Normocytic anemia (Chronic) Urinary retention due to benign prostatic hyperplasia (Chronic) s/p debridement Doing well post op continue current care Dragan Keating MD
[2016-11-23] MEDS ORDERED: NIFEdipine E.R. 30 MG TABLET (FP) PO SCH (10:00)
[2016-11-23] MEDS: MULTIVITAMINS (DAILY MVI) TABLET (FP) PO SCH (10:02)
[2016-11-23] MEDS: NIFEdipine E.R. 30 MG TABLET (FP) PO SCH (10:03)
[2016-11-23] MEDS: LISINOPRIL 20 MG TABLET (FP) PO SCH (10:03)
[2016-11-23] MEDS: CLOPIDOGREL BISULFATE 75 MG TABLET (FP) PO SCH (10:03)
[2016-11-23] MEDS: ASCORBIC ACID 500 MG TABLET (FP) PO SCH (10:03)
[2016-11-23] MEDS: POLYETHYLENE GLYCOL 3350 119 GM BTL PO SCH ×2 (10:16→21:29)
--- NOTE | 2016-11-23 12:09 | PN ---
Progress Note (short form) - Note Progress Note: currently asymptomatic. states he has no pain in his foot. denies CP, SOB,fever, chills, N/V/C/D states his cough has resolved. Current Medications Generic Name Dose Route Start Last Admin Trade Name Freq PRN Reason Stop Dose Admin Acetaminophen 650 mg 11/22/16 16:35 11/23/16 08:40 Tylenol - PO 650 mg Q4H PRN Administration FEVER OR PAIN Albuterol/Ipratropium 1 amp 11/22/16 16:35 Duoneb - NEB Q4H PRN SHORTNESS OF BREATH Amino Acids 30 ml 11/22/16 17:30 11/23/16 08:30 Prosource No Carb Liquid Pkt PO 30 ml BID@0800,1730 [facility] Administration Ascorbic Acid 500 mg 11/23/16 10:00 11/23/16 10:03 Vitamin C - PO 500 mg DAILY [facility] Administration Clopidogrel Bisulfate 75 mg 11/23/16 10:00 11/23/16 10:03 Plavix - PO 75 mg DAILY [facility] Administration Docusate Sodium 100 mg 11/22/16 22:00 11/23/16 06:40 Colace - PO 100 mg TID [facility] Administration Ferrous Sulfate 325 mg 11/22/16 17:30 11/23/16 08:30 Feosol - PO 325 mg BIDWM [facility] Administration Guaifenesin 5 ml 11/22/16 16:35 Robitussin Dm - PO Q6H PRN COUGH Heparin Sodium (Porcine) 5,000 unit 11/22/16 22:00 11/23/16 06:41 Heparin - SQ 5,000 unit TID [facility] Administration IV Flush 8 ml 11/22/16 16:35 Picc Line Flush IVPUSH PRN PRN Protocol Sodium Chloride 1,000 mls @ 83 mls/hr 11/22/16 16:35 11/23/16 08:36 Normal Saline - IV 83 mls/hr ASDIR [facility] Administration Vancomycin HCl 1,500 mg/ 500 mls @ 250 mls/hr 11/23/16 14:00 Dextrose IVPB DAILY@1400 [facility] Protocol Insulin Aspart 1 vial 11/22/16 22:00 11/23/16 11:15 Novolog Vial Sliding Scale - SQ Not Given ACHS [facility] Protocol Insulin Detemir 7 units 11/22/16 22:00 11/22/16 21:37 Levemir Vial SQ 7 units HS [facility] Administration Insulin Detemir 14 units 11/23/16 07:00 11/23/16 06:41 Levemir Vial SQ 14 units AM [facility] Administration Lisinopril 40 mg 11/23/16 10:00 11/23/16 10:03 Prinivil PO 40 mg DAILY [facility] Administration Multivitamins/Minerals/Vitamin C 1 tab 11/23/16 10:00 11/23/16 10:02 Tab-A-Vit - PO 1 tab DAILY [facility] Administration Nifedipine 30 mg 11/23/16 10:00 11/23/16 10:03 Procardia Xl - PO 30 mg DAILY [facility] Administration Polyethylene Glycol 17 gm 11/22/16 22:00 11/23/16 10:16 Miralax (For Daily Use) - PO Not Given BID [facility] Rosuvastatin Calcium 20 mg 11/22/16 22:00 11/22/16 21:37 Crestor - PO 20 mg HS [facility] Administration Tamsulosin HCl 0.8 mg 11/23/16 08:30 11/23/16 08:35 Flomax - PO 0.8 mg DAILY@0830 [facility] Administration Last Vital Signs Temp Pulse Resp BP Pulse Ox 98.8 F 88 92 H 157/89 94 L 11/23/16 09:08 11/23/16 09:45 11/23/16 09:08 11/23/16 09:08 11/23/16 09:45 General NAD, Lungs CTA B/L no wheezing/rales/rhonchi extremities dressing on L foot with dried blood. CBCD WBC 6.3 K/mm3 (4.0-10.0) 11/23/16 07:25 RBC 2.79 M/mm3 (4.00-5.60) L 11/23/16 07:25 Hgb 7.9 GM/dL (11.7-16.9) L 11/23/16 07:25 Hct 23.7 % (35.4-49) L 11/23/16 07:25 MCV 85.1 fl (80-96) 11/23/16 07:25 MCHC 33.3 g/dl (32.0-35.9) 11/23/16 07:25 RDW 16.2 % (11.9-15.9) H 11/23/16 07:25 Plt Count 376 K/MM3 (134-434) 11/23/16 07:25 MPV 6.9 fl (7.5-11.1) L 11/23/16 07:25 Microbiology 11/22/16 17:30 Gram Stain - Final Foot - Left Plantar ASSESSMENT AND PLAN: 56yo M with PMH DM presented to the ER and was admitted for further evalution of their emergent condition 1. 1st toe L foot OM-afebrile. s/p debridment on 11/22. awaiting repeat cx sent yesterday. completed abx treatment yesterday. now off abx. will determine if requires additional abx pending cx results 2. non-productive cough-improved. afebrile. encouraged to use incentive spirometer. 3. Microcytic anemia-anemia of chronic disease. received total of 4 units PRBC this admission. on iron supplements. transfuse for hgb <7 4. Acute metabolic encephalopathy- with superimposed subacute CVA. imaging studies done. evaluate by neuro and cardio. on statin/plavix 5. DM- A1c 12.4. improved cont levemir/iss,bgm 6. HTN- above goal.nifedipine started today, titrate to optimize control. cont acei 7. DVT ppx- hep sq. Visit type - Emergency Visit Emergency Visit: Yes ED Registration Date: 10/23/16 Care time: The patient presented to the Emergency Department on the above date and was hospitalized for further evaluation of their emergent condition. - New Patient This patient is new to me today: No - Critical Care Critical Care patient: No - Discharge Referral Referred to [facility] Med P.C.: No
[2016-11-23 13:07] LABS: ERYTHROCYTE SEDIMENTATION RATE 65 mm/hr (0-20)
[2016-11-23] MEDS: VANCOMYCIN 1,500 MG in DEXTROSE 5%-WATER - 500 ML IVPB SCH (13:18)
[2016-11-23] MEDS: PICC LINE 8 ML FLUSH PROTOCOL IVPUSH PRN (13:30)
--- NOTE | 2016-11-23 18:19 | PN ---
Progress Note, Physician History of Present Illness: no new events post debridement of the foot - Current Medication List Current Medications: Active Medications Acetaminophen (Tylenol -) 650 mg PO Q4H PRN PRN Reason: FEVER OR PAIN Last Admin: 11/23/16 08:40 Dose: 650 mg Albuterol/Ipratropium (Duoneb -) 1 amp NEB Q4H PRN PRN Reason: SHORTNESS OF BREATH Amino Acids (Prosource No Carb Liquid Pkt) 30 ml PO BID@0800,1730 [facility] Last Admin: 11/23/16 17:23 Dose: 30 ml Ascorbic Acid (Vitamin C -) 500 mg PO DAILY [facility] Last Admin: 11/23/16 10:03 Dose: 500 mg Clopidogrel Bisulfate (Plavix -) 75 mg PO DAILY [facility] Last Admin: 11/23/16 10:03 Dose: 75 mg Docusate Sodium (Colace -) 100 mg PO TID [facility] Last Admin: 11/23/16 13:23 Dose: Not Given Ferrous Sulfate (Feosol -) 325 mg PO BIDWM [facility] Last Admin: 11/23/16 17:23 Dose: 325 mg Guaifenesin (Robitussin Dm -) 5 ml PO Q6H PRN PRN Reason: COUGH Heparin Sodium (Porcine) (Heparin -) 5,000 unit SQ TID [facility] Last Admin: 11/23/16 13:18 Dose: 5,000 unit IV Flush (Picc Line Flush) 8 ml IVPUSH PRN PRN PRN Reason: Protocol Vancomycin HCl 1,500 mg/ (Dextrose) 500 mls @ 250 mls/hr IVPB DAILY@1400 [facility] PRN Reason: Protocol Last Admin: 11/23/16 13:18 Dose: 250 mls/hr Insulin Aspart (Novolog Vial Sliding Scale -) 1 vial SQ ACHS [facility] PRN Reason: Protocol Last Admin: 11/23/16 17:26 Dose: 2 units Insulin Detemir (Levemir Vial) 7 units SQ HS [facility] Last Admin: 11/22/16 21:37 Dose: 7 units Insulin Detemir (Levemir Vial) 14 units SQ AM [facility] Last Admin: 11/23/16 06:41 Dose: 14 units Lisinopril (Prinivil) 40 mg PO DAILY [facility] Last Admin: 11/23/16 10:03 Dose: 40 mg Multivitamins/Minerals/Vitamin C (Tab-A-Vit -) 1 tab PO DAILY [facility] Last Admin: 11/23/16 10:02 Dose: 1 tab Nifedipine (Procardia Xl -) 30 mg PO DAILY [facility] Last Admin: 11/23/16 10:03 Dose: 30 mg Polyethylene Glycol (Miralax (For Daily Use) -) 17 gm PO BID [facility] Last Admin: 11/23/16 10:16 Dose: Not Given Rosuvastatin Calcium (Crestor -) 20 mg PO HS [facility] Last Admin: 11/22/16 21:37 Dose: 20 mg Tamsulosin HCl (Flomax -) 0.8 mg PO DAILY@0830 [facility] Last Admin: 11/23/16 08:35 Dose: 0.8 mg - Objective Vital Signs: Vital Signs Temperature 98.4 F 11/23/16 16:50 Pulse Rate 93 H 11/23/16 16:50 Respiratory Rate 19 11/23/16 16:50 Blood Pressure 132/72 11/23/16 16:50 O2 Sat by Pulse Oximetry (%) 94 L 11/23/16 09:45 Constitutional: Yes: No Distress, Calm Cardiovascular: Yes: Regular Rate and Rhythm Respiratory: Yes: Regular, CTA Bilaterally Gastrointestinal: Yes: Normal Bowel Sounds, Soft Musculoskeletal: Yes: Other Extremities: Yes: Other Wound/Incision: Yes: Dressing Dry and Intact, Other Neurological: Yes: Alert Psychiatric: Yes: Alert Labs: CBC, BMP 11/23/16 07:25 11/22/16 06:25 INR, PTT INR 1.36 (0.82-1.09) H 10/24/16 07:50 Assessment/Plan osteo of the left toe wound infection dm fever leukocytosis plan continue current mgmt rest as per vascular primary
[2016-11-23] MEDS ORDERED: INSULIN (NOVOLOG) ASPART 100 UNITS/ML 10ML VIAL ONE (20:37)
[2016-11-23] MEDS: ROSUVASTATIN CA 20 MG TABLET (FP) PO SCH (21:24)
[2016-11-24] MEDS ORDERED: INSULIN (NOVOLOG) ASPART 100 UNITS/ML 10ML VIAL ONE ×3 (06:10→22:11)
[2016-11-24] MEDS: HEPARIN NA (PORCINE) 5,000 UNITS/ML 1ML VIAL SQ SCH ×3 (06:18→22:16)
[2016-11-24] MEDS: DOCUSATE SODIUM 100 MG CAPSULE (FP) PO SCH ×3 (06:18→22:15)
[2016-11-24] MEDS: INSULIN SLIDING SCALE (NOVOLOG) 1 VIAL SQ SCH ×4 (06:20→22:27)
[2016-11-24] MEDS: INSULIN DETEMIR 100 UNITS/ML MDV SQ SCH ×2 (06:20→22:26)
[2016-11-24] MEDS: AMINO ACIDS/PROTEIN HYDROLYS 30 ML LIQUID.PKT PO SCH ×2 (08:36→17:26)
[2016-11-24] MEDS: TAMSULOSIN HCL 0.4 MG CAP.ER.24H (FP) PO SCH (08:36)
[2016-11-24] MEDS: FERROUS SO4 325 MG TABLET (FP) PO SCH ×2 (08:36→17:24)
[2016-11-24] MEDS: ACETAMINOPHEN 325 MG TABLET (FP) PO PRN (08:41)
[2016-11-24] MEDS ORDERED: oxyCODONE HCL 5 MG TABLET PO PRN (09:25)
--- NOTE | 2016-11-24 09:52 | PN ---
Physical Exam: SUBJECTIVE: Patient seen and examined at bedside. He said his foot hurt the whole night and still having shortness of breath and non-productive cough. Denies fever, chills , chest pain. OBJECTIVE: Vital Signs Period Temp Pulse Resp BP Sys/Lopez Pulse Ox Last 24 Hr 97.9 F-98.8 F 88-99 18-20 132-155/72-92 91-94 GENERAL: AAOx3, mental status improving, not in any distress EYES: sclera anicteric, conjunctiva clear ENT: oropharynx clear without exudates LUNGS: b/l wheezing HEART: RRR, S1 and S2 present,No murmur ABDOMEN: +bs, soft, non-tender EXTREMITIES: new dressing in place, no blood or drainage Laboratory Results - last 24 hr 11/23/16 11/23/16 11/23/16 07:25 11:11 16:03 ESR 65 H POC Glucometer 149 187 11/23/16 11/24/16 21:22 06:17 ESR POC Glucometer 188 127 Active Medications Generic Name Dose Route Start Last Admin Trade Name Freq PRN Reason Stop Dose Admin Acetaminophen 650 mg 11/22/16 16:35 11/24/16 08:41 Tylenol - PO 650 mg Q4H PRN Administration FEVER OR PAIN Albuterol/Ipratropium 1 amp 11/22/16 16:35 Duoneb - NEB Q4H PRN SHORTNESS OF BREATH Amino Acids 30 ml 11/22/16 17:30 11/24/16 08:36 Prosource No Carb Liquid Pkt PO 30 ml BID@0800,1730 SANGEETHA Administration Ascorbic Acid 500 mg 11/23/16 10:00 11/23/16 10:03 Vitamin C - PO 500 mg DAILY SANGEETHA Administration Clopidogrel Bisulfate 75 mg 11/23/16 10:00 11/23/16 10:03 Plavix - PO 75 mg DAILY SANGEETHA Administration Docusate Sodium 100 mg 11/22/16 22:00 11/24/16 06:18 Colace - PO 100 mg TID SANGEETHA Administration Ferrous Sulfate 325 mg 11/22/16 17:30 11/24/16 08:36 Feosol - PO 325 mg BIDWM SANGEETHA Administration Guaifenesin 5 ml 11/22/16 16:35 Robitussin Dm - PO Q6H PRN COUGH Heparin Sodium (Porcine) 5,000 unit 11/22/16 22:00 11/24/16 06:18 Heparin - SQ 5,000 unit TID SANGEETHA Administration IV Flush 8 ml 11/22/16 16:35 Picc Line Flush IVPUSH PRN PRN Protocol Vancomycin HCl 1,500 mg/ 500 mls @ 250 mls/hr 11/23/16 14:00 11/23/16 13:18 Dextrose IVPB 250 mls/hr DAILY@1400 [facility] Administration Protocol Insulin Aspart 1 vial 11/22/16 22:00 11/24/16 06:20 Novolog Vial Sliding Scale - SQ Not Given ACHS [facility] Protocol Insulin Detemir 7 units 11/22/16 22:00 11/23/16 21:25 Levemir Vial SQ 7 units HS SANGEETHA Administration Insulin Detemir 14 units 11/23/16 07:00 11/24/16 06:20 Levemir Vial SQ 14 units AM SANGEETHA Administration Lisinopril 40 mg 11/23/16 10:00 11/23/16 10:03 Prinivil PO 40 mg DAILY SANGEETHA Administration Multivitamins/Minerals/Vitamin C 1 tab 11/23/16 10:00 11/23/16 10:02 Tab-A-Vit - PO 1 tab DAILY SANGEETHA Administration Nifedipine 30 mg 11/23/16 10:00 11/23/16 10:03 Procardia Xl - PO 30 mg DAILY SANGEETHA Administration Oxycodone HCl 15 mg 11/24/16 09:25 Roxicodone - PO 11/25/16 09:24 Q4H PRN PAIN Polyethylene Glycol 17 gm 11/22/16 22:00 11/23/16 21:29 Miralax (For Daily Use) - PO 17 gm BID SANGEETHA Administration Rosuvastatin Calcium 20 mg 11/22/16 22:00 11/23/16 21:24 Crestor - PO 20 mg HS SANGEETHA Administration Tamsulosin HCl 0.8 mg 11/23/16 08:30 11/24/16 08:36 Flomax - PO 0.8 mg DAILY@0830 [facility] Administration ASSESSMENT/PLAN: 56 yo M with h/o uncontrolled DMII admitted for L foot osteomyelitis. Osteomyelitis, L first toe - s/p further debridement day 3 - Afrebile - Completed vancomycin course - Awaiting wound culture Dyspea 2/2 pleural effusion - Occurs mostly at night - Likely 2/2 pleural effusion vs. uncontrolled pain - Start oxycodone for pain - Duoneb PRN - Cont. spirometer Urinary retention - Resolved - 2/2 BPH - On flomax 0.4mg Daily Altered mental status, mild - Adjustment disorder to current medical/surgical conditions - Improving - Now at hospital baseline Normocytic anemia - Stable IDDM - Cont. sliding scale and cont. levemir 7/14 units BID HTN - Cont. nifedipine 30mg daily and lisnopril 40mg daily FEN - IVF not indicated - Normal lytes - Diabetic/Sodium diet Prophylaxis - DVT: heparin - GI: not indicated Disposition - Accepted by Richie Shabazz - Discharge tomorrow Code status - Full Visit type - Emergency Visit Emergency Visit: No - New Patient This patient is new to me today: No - Critical Care Critical Care patient: No
[2016-11-24] MEDS ORDERED: NIFEdipine E.R 60 MG TABLET (UD) PO SCH (10:02)
--- NOTE | 2016-11-24 10:03 | PN ---
Teaching Attending Note Name of Resident: Edward Chamberlain ATTENDING PHYSICIAN STATEMENT I saw and evaluated the patient. I reviewed the resident's note and discussed the case with the resident. I agree with the resident's findings and plan as documented. SUBJECTIVE:currently asymptomatic. cough resolved. no CP, SOB,fever, chills, N/V /C/D OBJECTIVE: Last Vital Signs Temp Pulse Resp BP Pulse Ox 98.8 F 92 H 18 155/87 96 11/24/16 08:56 11/24/16 09:50 11/24/16 08:56 11/24/16 08:56 11/24/16 09:50 General NAD CV S1 S2 RRR no murmur/rub/gallop Lungs CTA B/L no wheezing/rales/rhonchi ASSESSMENT AND PLAN: 56yo M with PMH DM presented to the ER and was admitted for further evalution of their emergent condition 1. 1st toe L foot OM-afebrile. s/p debridment on 11/22. repeat Cx sent after debridement. awaiting official results. on Vanco day 32 .management per vascular surgery 2. non-productive cough-improved. afebrile. encouraged to use incentive spirometer. 3. Microcytic anemia-anemia of chronic disease. received total of 4 units PRBC this admission. on iron supplements. transfuse for hgb <7 4. Acute metabolic encephalopathy- with superimposed subacute CVA. imaging studies done. evaluate by neuro and cardio. on statin/plavix 5. DM- A1c 12.4. improved cont levemir/iss,bgm 6. HTN- above goal.increase nifedipine to 60mg, titrate to optimize control. cont acei 7. DVT ppx- hep sq.
[2016-11-24] MEDS: ASCORBIC ACID 500 MG TABLET (FP) PO SCH (10:07)
[2016-11-24] MEDS: MULTIVITAMINS (DAILY MVI) TABLET (FP) PO SCH (10:10)
[2016-11-24] MEDS: CLOPIDOGREL BISULFATE 75 MG TABLET (FP) PO SCH (10:10)
[2016-11-24] MEDS: LISINOPRIL 20 MG TABLET (FP) PO SCH (10:10)
[2016-11-24] MEDS: POLYETHYLENE GLYCOL 3350 119 GM BTL PO SCH ×2 (10:10→22:30)
[2016-11-24] MEDS: NIFEdipine E.R. 30 MG TABLET (FP) PO SCH (10:29)
[2016-11-24] MEDS: NIFEdipine E.R 60 MG TABLET (UD) PO SCH (10:33)
[2016-11-24] MEDS: VANCOMYCIN 1,500 MG in DEXTROSE 5%-WATER - 500 ML IVPB SCH (13:13)
[2016-11-24] MEDS: PICC LINE 8 ML FLUSH PROTOCOL IVPUSH PRN (13:15)
[2016-11-24] MEDS: ROSUVASTATIN CA 20 MG TABLET (FP) PO SCH (22:15)
[2016-11-25] MEDS: HEPARIN NA (PORCINE) 5,000 UNITS/ML 1ML VIAL SQ SCH ×3 (06:33→21:39)
[2016-11-25] MEDS: DOCUSATE SODIUM 100 MG CAPSULE (FP) PO SCH ×3 (06:33→21:39)
[2016-11-25] MEDS: INSULIN SLIDING SCALE (NOVOLOG) 1 VIAL SQ SCH ×4 (06:39→21:39)
[2016-11-25] MEDS: INSULIN DETEMIR 100 UNITS/ML MDV SQ SCH ×2 (06:44→21:39)
[2016-11-25] MEDS: FERROUS SO4 325 MG TABLET (FP) PO SCH ×2 (09:23→17:16)
[2016-11-25] MEDS: TAMSULOSIN HCL 0.4 MG CAP.ER.24H (FP) PO SCH (09:23)
[2016-11-25] MEDS: AMINO ACIDS/PROTEIN HYDROLYS 30 ML LIQUID.PKT PO SCH ×2 (09:23→17:16)
[2016-11-25] MEDS: ASCORBIC ACID 500 MG TABLET (FP) PO SCH (09:24)
[2016-11-25] MEDS: CLOPIDOGREL BISULFATE 75 MG TABLET (FP) PO SCH (09:24)
[2016-11-25] MEDS: LISINOPRIL 20 MG TABLET (FP) PO SCH (09:24)
[2016-11-25] MEDS: MULTIVITAMINS (DAILY MVI) TABLET (FP) PO SCH (09:24)
[2016-11-25] MEDS: POLYETHYLENE GLYCOL 3350 119 GM BTL PO SCH ×2 (09:24→21:39)
[2016-11-25] MEDS: NIFEdipine E.R 60 MG TABLET (UD) PO SCH (09:25)
[2016-11-25] MEDS ORDERED: INSULIN (NOVOLOG) ASPART 100 UNITS/ML 10ML VIAL ONE ×2 (11:19→21:11)
--- NOTE | 2016-11-25 13:30 | PN ---
Addendum entered and electronically signed by Robyn Roblero PA 11/25/16 13:39: Spoke with the medical team regarding cultures sent from OR on 11/22, positive organisims are klebsiella and staph aureus with new sensitivities. Prior to discharge the plan is for ID to make final IV abx choice to cover new culture results. Original Note: Progress Note (short form) - Note Progress Note: Pt seen today and dressing changed. Vital Signs Period Temp Pulse Resp BP Sys/Lopez Pulse Ox Last 24 Hr 98 F-98.4 F 80-93 18-18 109-153/63-90 96 Left foot: Minimal necrotic tissue. Bone and tendon exposed of the second toe. Medial aspect of the wound has granulation tissue. No foul odor. wound dimesions: [id number]. Problem List - Problems (1) Gangrenous toe Assessment/Plan: s/p debridement and excision of necrotic tissue/bone and tendon local wound care with wet to dry/santyl IV abx awaiting placement in nursing facility, will continue to be followed as an outpt in the wound clinic at [facility] with Dr. Ponce when discharged Code(s): I96 - GANGRENE, NOT ELSEWHERE CLASSIFIED
[2016-11-25] MEDS: VANCOMYCIN 1,500 MG in DEXTROSE 5%-WATER - 500 ML IVPB SCH (13:35)
[2016-11-25] MEDS ORDERED: NIFEdipine E.R. 30 MG TABLET (FP) PO ONE (14:25)
--- NOTE | 2016-11-25 14:26 | PN ---
Teaching Attending Note Name of Resident: Edward Chamberlain ATTENDING PHYSICIAN STATEMENT I saw and evaluated the patient. I reviewed the resident's note and discussed the case with the resident. I agree with the resident's findings and plan as documented. SUBJECTIVE:currently asymptomatic. cough resolved. denies CP, SOB,fever, chills OBJECTIVE: Last Vital Signs Temp Pulse Resp BP Pulse Ox 98.1 F 92 H 18 151/76 96 11/25/16 10:00 11/25/16 10:00 11/25/16 10:00 11/25/16 10:00 11/24/16 21:00 General NAD CV S1 S2 RRR no murmur/rub/gallop Lungs CTA B/L no wheezing/rales/rhonchi Microbiology 11/22/16 17:30 Gram Stain - Final Foot - Left Plantar Wound Culture - Preliminary Klebsiella Pneumoniae Staphylococcus Aureus ASSESSMENT AND PLAN: 56yo M with PMH DM presented to the ER and was admitted for further evalution of their emergent condition 1. 1st toe L foot OM-afebrile. s/p debridment on 11/22. repeat Cx MSSA and Klebsiella smith-sensitive. spoke with ID who will adjust abx regimen. will need longterm abx. spoke with surgery, no plan for further intervention at this time. f/u in office next week. 2. non-productive cough-resolved. encouraged to use incentive spirometer. 3. Microcytic anemia-anemia of chronic disease. received total of 4 units PRBC this admission. on iron supplements. transfuse for hgb <7 4. Acute metabolic encephalopathy- with superimposed subacute CVA. imaging studies done. evaluate by neuro and cardio. on statin/plavix 5. DM- A1c 12.4. improved cont levemir/iss,bgm 6. HTN- above goal.increase nifedipine to 90mg, titrate to optimize control. cont acei 7. DVT ppx- hep sq. 8. d/c planning to [facility]. awaiting authorization. PICC line in place
--- NOTE | 2016-11-25 16:55 | PN ---
Physical Exam: SUBJECTIVE: Patient seen and examined at bedside. c/o foot pain is not controlled. Denies shortness of breath, non-productive cough, fever, chills, chest pain. OBJECTIVE: Vital Signs Period Temp Pulse Resp BP Sys/Lopez Pulse Ox Last 24 Hr 98 F-98.4 F 80-95 18-18 124-153/73-90 96 GENERAL: AAOx3, mental status improving, not in any distress EYES: sclera anicteric, conjunctiva clear ENT: oropharynx clear without exudates LUNGS: CTAB HEART: RRR, S1 and S2 present,No murmur ABDOMEN: +bs, soft, non-tender EXTREMITIES: new dressing in place, no blood or drainage Laboratory Results - last 24 hr 11/24/16 11/25/16 11/25/16 22:23 06:36 11:16 POC Glucometer 203 113 168 Active Medications Generic Name Dose Route Start Last Admin Trade Name Freq PRN Reason Stop Dose Admin Acetaminophen 650 mg 11/22/16 16:35 11/24/16 08:41 Tylenol - PO 650 mg Q4H PRN Administration FEVER OR PAIN Albuterol/Ipratropium 1 amp 11/22/16 16:35 Duoneb - NEB Q4H PRN SHORTNESS OF BREATH Amino Acids 30 ml 11/22/16 17:30 11/25/16 09:23 Prosource No Carb Liquid Pkt PO 30 ml BID@0800,1730 SANGEETHA Administration Ascorbic Acid 500 mg 11/23/16 10:00 11/25/16 09:24 Vitamin C - PO 500 mg DAILY SANGEETHA Administration Clopidogrel Bisulfate 75 mg 11/23/16 10:00 11/25/16 09:24 Plavix - PO 75 mg DAILY SANGEETHA Administration Docusate Sodium 100 mg 11/22/16 22:00 11/25/16 13:35 Colace - PO 100 mg TID SANGEETHA Administration Ferrous Sulfate 325 mg 11/22/16 17:30 11/25/16 09:23 Feosol - PO 325 mg BIDWM S[facility] Administration Guaifenesin 5 ml 11/22/16 16:35 11/25/16 02:11 Robitussin Dm - PO 5 ml Q6H PRN Administration COUGH Heparin Sodium (Porcine) 5,000 unit 11/22/16 22:00 11/25/16 13:35 Heparin - SQ 5,000 unit TID SANGEETHA Administration IV Flush 8 ml 11/22/16 16:35 11/24/16 13:15 Picc Line Flush IVPUSH 8 ml PRN PRN Administration Protocol Vancomycin HCl 1,500 mg/ 500 mls @ 250 mls/hr 11/23/16 14:00 11/25/16 13:35 Dextrose IVPB 250 mls/hr DAILY@1400 [facility] Administration Protocol Insulin Aspart 1 vial 11/22/16 22:00 11/25/16 11:20 Novolog Vial Sliding Scale - SQ 2 units ACHS [facility] Administration Protocol Insulin Detemir 7 units 11/22/16 22:00 11/24/16 22:26 Levemir Vial SQ 7 units HS S[facility]ETHA Administration Insulin Detemir 14 units 11/23/16 07:00 11/25/16 06:44 Levemir Vial SQ 14 units AM [facility] Administration Lisinopril 40 mg 11/23/16 10:00 11/25/16 09:24 Prinivil PO 40 mg DAILY [facility] Administration Multivitamins/Minerals/Vitamin C 1 tab 11/23/16 10:00 11/25/16 09:24 Tab-A-Vit - PO 1 tab DAILY [facility] Administration Nifedipine 60 mg 11/24/16 10:30 11/25/16 09:25 Procardia Xl - PO 60 mg DAILY [facility] Administration Polyethylene Glycol 17 gm 11/22/16 22:00 11/25/16 09:24 Miralax (For Daily Use) - PO 17 gm BID [facility] Administration Rosuvastatin Calcium 20 mg 11/22/16 22:00 11/24/16 22:15 Crestor - PO 20 mg HS [facility] Administration Tamsulosin HCl 0.8 mg 11/23/16 08:30 11/25/16 09:23 Flomax - PO 0.8 mg DAILY@0830 S[facility] Administration Microbiology 11/22/16 17:30 Gram Stain - Final Foot - Left Plantar Wound Culture - Final Klebsiella Pneumoniae Staphylococcus Aureus ASSESSMENT/PLAN: 56 yo M with h/o uncontrolled DMII admitted for L foot osteomyelitis. Osteomyelitis, L first toe - s/p further debridement day 4 - Afrebile - On vancomycin - Oxycodone for pain control - Wound culture grew klebsiella and staph aureus - Awaiting ID input on abx regiment for discharge Dyspea 2/2 pleural effusion - Resolved - Likely 2/2 pleural effusion vs. uncontrolled pain - Duoneb PRN - Cont. spirometer Urinary retention - Resolved - 2/2 BPH - On flomax 0.4mg Daily Altered mental status, mild - Adjustment disorder to current medical/surgical conditions - Improving - Now at hospital baseline Normocytic anemia - Stable IDDM - Cont. sliding scale and cont. levemir 7/14 units BID HTN - Cont. nifedipine 60mg daily and lisnopril 40mg daily FEN - IVF not indicated - Normal lytes - Diabetic/Sodium diet Prophylaxis - DVT: heparin - GI: not indicated Disposition - Awaiting ID input for discharge Code status - Full Visit type - Emergency Visit Emergency Visit: No - New Patient This patient is new to me today: No - Critical Care Critical Care patient: No
--- NOTE | 2016-11-25 17:02 | PN ---
Progress Note, Physician History of Present Illness: patient doing well no issues patients cx are growing organism inspite of being vanco no issues - Current Medication List Current Medications: Active Medications Acetaminophen (Tylenol -) 650 mg PO Q4H PRN PRN Reason: FEVER OR PAIN Last Admin: 11/24/16 08:41 Dose: 650 mg Albuterol/Ipratropium (Duoneb -) 1 amp NEB Q4H PRN PRN Reason: SHORTNESS OF BREATH Amino Acids (Prosource No Carb Liquid Pkt) 30 ml PO BID@0800,1730 [facility] Last Admin: 11/25/16 09:23 Dose: 30 ml Ascorbic Acid (Vitamin C -) 500 mg PO DAILY [facility] Last Admin: 11/25/16 09:24 Dose: 500 mg Clopidogrel Bisulfate (Plavix -) 75 mg PO DAILY [facility] Last Admin: 11/25/16 09:24 Dose: 75 mg Docusate Sodium (Colace -) 100 mg PO TID [facility] Last Admin: 11/25/16 13:35 Dose: 100 mg Ferrous Sulfate (Feosol -) 325 mg PO BIDWM [facility] Last Admin: 11/25/16 09:23 Dose: 325 mg Guaifenesin (Robitussin Dm -) 5 ml PO Q6H PRN PRN Reason: COUGH Last Admin: 11/25/16 02:11 Dose: 5 ml Heparin Sodium (Porcine) (Heparin -) 5,000 unit SQ TID [facility] Last Admin: 11/25/16 13:35 Dose: 5,000 unit IV Flush (Picc Line Flush) 8 ml IVPUSH PRN PRN PRN Reason: Protocol Last Admin: 11/24/16 13:15 Dose: 8 ml Cefazolin Sodium (Ancef 1 Gm Premixed Ivpb -) 50 mls @ 100 mls/hr IVPB Q8H-IV SANGEETHA Insulin Aspart (Novolog Vial Sliding Scale -) 1 vial SQ ACHS [facility] PRN Reason: Protocol Last Admin: 11/25/16 11:20 Dose: 2 units Insulin Detemir (Levemir Vial) 7 units SQ HS [facility] Last Admin: 11/24/16 22:26 Dose: 7 units Insulin Detemir (Levemir Vial) 14 units SQ AM [facility] Last Admin: 11/25/16 06:44 Dose: 14 units Lisinopril (Prinivil) 40 mg PO DAILY [facility] Last Admin: 11/25/16 09:24 Dose: 40 mg Multivitamins/Minerals/Vitamin C (Tab-A-Vit -) 1 tab PO DAILY [facility] Last Admin: 11/25/16 09:24 Dose: 1 tab Nifedipine (Procardia Xl -) 60 mg PO DAILY [facility] Last Admin: 11/25/16 09:25 Dose: 60 mg Polyethylene Glycol (Miralax (For Daily Use) -) 17 gm PO BID [facility] Last Admin: 11/25/16 09:24 Dose: 17 gm Rosuvastatin Calcium (Crestor -) 20 mg PO HS [facility] Last Admin: 11/24/16 22:15 Dose: 20 mg Tamsulosin HCl (Flomax -) 0.8 mg PO DAILY@0830 [facility] Last Admin: 11/25/16 09:23 Dose: 0.8 mg - Objective Vital Signs: Vital Signs Temperature 98.1 F 11/25/16 15:37 Pulse Rate 95 H 11/25/16 15:37 Respiratory Rate 18 11/25/16 15:37 Blood Pressure 124/73 11/25/16 15:37 O2 Sat by Pulse Oximetry (%) 96 11/24/16 21:00 Constitutional: Yes: No Distress, Calm Cardiovascular: Yes: Regular Rate and Rhythm Respiratory: Yes: Regular, CTA Bilaterally Gastrointestinal: Yes: Normal Bowel Sounds, Soft Musculoskeletal: Yes: WNL Extremities: Yes: Other Neurological: Yes: Alert, Oriented Psychiatric: Yes: Alert, Oriented Labs: CBC, BMP 11/23/16 07:25 11/22/16 06:25 INR, PTT INR 1.36 (0.82-1.09) H 10/24/16 07:50 Assessment/Plan osteo of the left toe wound infection dm fever leukocytosis plan stopped vanco switched to ancef continue ancef for 4 weeks follow labs on regular basis
[2016-11-25] MEDS: CEFAZOLIN (PRE-DOCKED) 50 ML IVPB SCH (17:32)
--- NOTE | 2016-11-25 18:04 | DS ---
Physical Exam: HOSPITAL COURSE: Date of Admission:10/23/16 56 year-old male with PMH uncontrolled IDDM (because of insurance lapse has not had medications for approx 20 days) and gangrenous left foot ulcer s/p angioplasty (08/2016) presents to ED with c/o 3-4 days of left foot pain and inability to bear weight. He was found to have sepsis from osteomyelitis of left great toe. Podiatry, vascular surgery and infectious disease were consulted and decision was made to amputate the affected toe. Further debridement was done on 11/22 after being found to have new necrotic tissue on dressing change. He was treated with vancomycin and zosyn. During hospitalization, his mental status waxes and weans. CT head was negative for acute pathology. MRI of brain showed tinted infarct. Neurology stated it's more likely secondary to toxic metabolic nature. Psychiatry suggests that it may be due to adjustment disorder. He also developed urinary retention most likely secondary to BPH. Delgado was inserted and he's started on flomax 0.8mg PO daily. His blood glc was also poorly controlled. He's now on levemir 7units and 14 units daily plus sliding scale. Blood pressure stays persistently high during his stay and he's started on nifedipine 60mg and lisinopril 40mg. He's also found to have normocytic anemia with a baseline of 10 and s/p PRBC transfusion during admission. He also developed pleural effusion during his stay which was treated with lasix PRN. The wound culture obtained from debridement grew organisms that are sensitive to cefazolin. As a result, he will continue cefazolin 1gram every 8 hours through PICC line for 4 more weeks. He's now in stable condition to be transferred to a long-term facility to continue the snf antibiotics for osteomyelitis. He's instructed to note the changes made on his insulin and BP medications and follow up at [facility] and wound clinic for continuing wound care. Date of Discharge: 11/25/16 Minutes to complete discharge: 35 Discharge Summary Reason For Visit: CELLULITIS Current Active Problems Gangrenous toe (Acute) Osteomyelitis (Acute) Hypertension (Chronic) Insulin dependent diabetes mellitus (Chronic) Normocytic anemia (Chronic) Urinary retention due to benign prostatic hyperplasia (Chronic) Condition: Stable - Instructions Diet, Activity, Other Instructions: Instruction for continuing care while at long-term facility: 1. cont. cefazolin 1G IVPB every 8 hours for 4 weeks 2. levemir 14units AM and 7 units before sleep, plus novolog sliding scale 3. take nifedipine 60mg daily and lisinopril 40 mg daily for blood pressure control 4. cont. the rest of his medications 5. come to [facility] for hyperbaric treatment for his foot and 5th floor wound clinic for wound care. Referrals: Annika Cedeno MD [Staff Physician] - Jacinto Pascual DO [Staff Physician] - Edvin Hernandez MD [Staff Physician] - Luis Manuel Ponce MD [Staff Physician] - Disposition: NURSING HOME FACILITY - Home Medications Comprehensive Discharge Medication List: Ambulatory Orders Clopidogrel Bisulfate [Plavix -] 75 mg PO DAILY #30 tablet 09/01/16 Acetaminophen [Tylenol .Regular Strength -] 650 mg PO Q4H PRN #0 tablet Albuterol 2.5/Ipratropium 0.5 [Duoneb -] 1 amp NEB Q4H PRN #0 amp 11/15/16 Albuterol 2.5/Ipratropium 0.5 [Duoneb -] 1 amp NEB QIDR amp 11/15/16 Amino Acids/Protein Hydrolys [Prosource No Carb Liquid Pkt] 30 ml PO BID@0800, 1730 packet 11/15/16 Ascorbic Acid [Vitamin C -] 500 mg PO DAILY tablet 11/15/16 Docusate Sodium [Colace -] 100 mg PO TID tab 11/15/16 Ferrous Sulfate [Feosol] 325 mg PO BIDWM tab 11/15/16 Guaifenesin Dm [Robitussin Dm -] 5 ml PO Q6H PRN #0 bottle 11/15/16 Heparin - 5,000 unit SQ TID vial 11/15/16 Insulin (Levemir) [Levemir Vial] 7 units SQ HS ml 11/15/16 Insulin Sliding Scale [Novolog Vial Sliding Scale -] 1 vial SQ ACHS units 11/15 Multivitamins [Multivit ([facility] Formul[facility])] 1 tab PO DAILY tab 11/15/16 Picc Line Flush [Picc Line Flush -] 8 ml IVPUSH PRN PRN #0 ml 11/15/16 Polyethylene Glycol 3350 [Miralax 119 gm Btl -] 17 gm PO BID bottle 11/15/16 Tamsulosin HCl [Flomax -] 0.8 mg PO DAILY@0830 tab 11/15/16 Cefazolin (Pre-Docked) [Ancef 1Gm Ivpb (Pre-Docked)] 50 ml IVPB Q8H-IV 28 Days 11/25/16 Dextrose 5%-Water - [D5w -] 500 ml IVPB DAILY@1400 bag 11/25/16 Insulin (Levemir) [Levemir Vial] 14 units SQ AM #0 ml 11/25/16 Lisinopril [Prinivil] 40 mg PO DAILY #0 tablet 11/25/16 Nifedipine ER [Procardia XL -] 60 mg PO DAILY tab 11/25/16 Oxycodone HCl [Roxicodone -] 15 mg PO Q4H PRN #0 tablet MDD 90 11/25/16 This patient is new to me today: No Emergency Visit: No Critical Care patient: No - Discharge Referral Referred to [facility] No
--- NOTE | 2016-11-25 19:38 | PN ---
Progress Note (short form) - Note Progress Note: Vascular Surgery Pt seen and examined. Dresssing changed. Most of the wound looks clean. some areas over bone have slough. Will place vac sindy and pt will need vac in rehab. WBC is normal. Luis Manuel Ponce DO
[2016-11-25] MEDS: ROSUVASTATIN CA 20 MG TABLET (FP) PO SCH (21:39)
[2016-11-26] MEDS: CEFAZOLIN (PRE-DOCKED) 50 ML IVPB SCH ×2 (01:36→09:34)
[2016-11-26] MEDS: DOCUSATE SODIUM 100 MG CAPSULE (FP) PO SCH ×2 (05:28→13:35)
[2016-11-26] MEDS: HEPARIN NA (PORCINE) 5,000 UNITS/ML 1ML VIAL SQ SCH ×2 (05:35→13:35)
[2016-11-26] MEDS: INSULIN SLIDING SCALE (NOVOLOG) 1 VIAL SQ SCH ×2 (06:25→11:45)
[2016-11-26] MEDS: INSULIN DETEMIR 100 UNITS/ML MDV SQ SCH (06:25)
[2016-11-26] MEDS: ASCORBIC ACID 500 MG TABLET (FP) PO SCH (09:34)
[2016-11-26] MEDS: NIFEdipine E.R 60 MG TABLET (UD) PO SCH (09:34)
[2016-11-26] MEDS: FERROUS SO4 325 MG TABLET (FP) PO SCH (09:34)
[2016-11-26] MEDS: AMINO ACIDS/PROTEIN HYDROLYS 30 ML LIQUID.PKT PO SCH (09:34)
[2016-11-26] MEDS: TAMSULOSIN HCL 0.4 MG CAP.ER.24H (FP) PO SCH (09:34)
[2016-11-26] MEDS: MULTIVITAMINS (DAILY MVI) TABLET (FP) PO SCH (09:34)
[2016-11-26] MEDS: CLOPIDOGREL BISULFATE 75 MG TABLET (FP) PO SCH (09:34)
[2016-11-26] MEDS: LISINOPRIL 20 MG TABLET (FP) PO SCH (09:34)
[2016-11-26] MEDS: POLYETHYLENE GLYCOL 3350 119 GM BTL PO SCH (09:36)
--- NOTE | 2016-11-26 10:15 | PN ---
Progress Note, Physician History of Present Illness: doing well no new issues - Current Medication List Current Medications: Active Medications Acetaminophen (Tylenol -) 650 mg PO Q4H PRN PRN Reason: FEVER OR PAIN Last Admin: 11/24/16 08:41 Dose: 650 mg Albuterol/Ipratropium (Duoneb -) 1 amp NEB Q4H PRN PRN Reason: SHORTNESS OF BREATH Amino Acids (Prosource No Carb Liquid Pkt) 30 ml PO BID@0800,1730 [facility] Last Admin: 11/26/16 09:34 Dose: 30 ml Ascorbic Acid (Vitamin C -) 500 mg PO DAILY [facility] Last Admin: 11/26/16 09:34 Dose: 500 mg Clopidogrel Bisulfate (Plavix -) 75 mg PO DAILY [facility] Last Admin: 11/26/16 09:34 Dose: 75 mg Docusate Sodium (Colace -) 100 mg PO TID [facility] Last Admin: 11/26/16 05:28 Dose: 100 mg Ferrous Sulfate (Feosol -) 325 mg PO BIDWM [facility] Last Admin: 11/26/16 09:34 Dose: 325 mg Guaifenesin (Robitussin Dm -) 5 ml PO Q6H PRN PRN Reason: COUGH Last Admin: 11/25/16 02:11 Dose: 5 ml Heparin Sodium (Porcine) (Heparin -) 5,000 unit SQ TID [facility] Last Admin: 11/26/16 05:35 Dose: 5,000 unit IV Flush (Picc Line Flush) 8 ml IVPUSH PRN PRN PRN Reason: Protocol Last Admin: 11/24/16 13:15 Dose: 8 ml Cefazolin Sodium (Ancef 1gm Ivpb (Pre-Docked)) 50 mls @ 100 mls/hr IVPB Q8H-IV [facility] Last Admin: 11/26/16 09:34 Dose: 100 mls/hr Insulin Aspart (Novolog Vial Sliding Scale -) 1 vial SQ ACHS [facility] PRN Reason: Protocol Last Admin: 11/26/16 06:25 Dose: Not Given Insulin Detemir (Levemir Vial) 7 units SQ HS [facility] Last Admin: 11/25/16 21:39 Dose: 7 units Insulin Detemir (Levemir Vial) 14 units SQ AM [facility] Last Admin: 11/26/16 06:25 Dose: 14 units Lisinopril (Prinivil) 40 mg PO DAILY [facility] Last Admin: 11/26/16 09:34 Dose: 40 mg Multivitamins/Minerals/Vitamin C (Tab-A-Vit -) 1 tab PO DAILY [facility] Last Admin: 11/26/16 09:34 Dose: 1 tab Nifedipine (Procardia Xl -) 60 mg PO DAILY [facility] Last Admin: 11/26/16 09:34 Dose: 60 mg Polyethylene Glycol (Miralax (For Daily Use) -) 17 gm PO BID [facility] Last Admin: 11/26/16 09:36 Dose: 17 gm Rosuvastatin Calcium (Crestor -) 20 mg PO HS [facility] Last Admin: 11/25/16 21:39 Dose: 20 mg Tamsulosin HCl (Flomax -) 0.8 mg PO DAILY@0830 [facility] Last Admin: 11/26/16 09:34 Dose: 0.8 mg - Objective Vital Signs: Vital Signs Temperature 98.3 F 11/26/16 06:00 Pulse Rate 90 11/26/16 06:00 Respiratory Rate 20 11/26/16 06:00 Blood Pressure 148/88 11/26/16 06:00 O2 Sat by Pulse Oximetry (%) 96 11/24/16 21:00 Constitutional: Yes: No Distress, Calm Cardiovascular: Yes: Regular Rate and Rhythm Respiratory: Yes: Regular, CTA Bilaterally Gastrointestinal: Yes: Normal Bowel Sounds, Soft Musculoskeletal: Yes: Other Extremities: Yes: Other Neurological: Yes: Alert, Oriented Psychiatric: Yes: Alert, Oriented Labs: CBC, BMP 11/23/16 07:25 11/22/16 06:25 INR, PTT INR 1.36 (0.82-1.09) H 10/24/16 07:50 Assessment/Plan osteo of the left toe wound infection dm fever leukocytosis plan continue current mgmt plan made abx course to finish rest as per primary
[2016-11-26 14:57] VITALS: BP 118/68; PULSE 93; TEMP 98.4
--- NOTE | 2016-11-27 11:20 | PATH ---
Surgical Pathology Report Patient Name: FILIPPO RICHARD [facility]. Rec. #: [id number] /Age/Gender: 1960 (Age: 56) / M Account: [id number] Location: [address] [place] [address]/[facility] Taken: 11/22/2016 Received: 11/25/2016 Reported: 11/26/2016 Physicians: Luis Manuel Gold M.D. Specimen(s) Received DEBRIDEMENT TISSUE LEFT LOWER EXTREMITY Clinical History Wound left lower extremity Final Diagnosis SKIN AND SOFT TISSUE, LEFT LOWER EXTREMITY, DEBRIDEMENT: NECROTIC SKIN AND UNDERLYING SOFT TISSUE WITH ACUTE NECROTIZING INFLAMMATION AND GANGRENOUS NECROSIS. Electronically Signed Benson Paulson M.D. Gross Description Received in formalin labeled "debrided tissue left lower extremity" is a 4.2 x 2.5 x 0.3 cm aggregate of arevalo, necrotic skin and fibrous tissue. Batter Mixer Helper sections are submitted in one cassette. /11/25/2016 saudi11/25/2016
--- NOTE | 2016-11-30 12:09 | OP ---
DATE OF OPERATION: 11/22/2016 PROCEDURE: Excisional debridement of skin, subcutaneous tissue, muscle, tendon, left foot PREOPERATIVE DIAGNOSIS: Necrotic left foot POSTOPERATIVE DIAGNOSIS: Necrotic left foot SURGEON: Luis Manuel Faith DO ANESTHESIA: Fractional BLOOD LOSS: 50 mL INDICATION: The patient is a 56-year-old male that came in with abscess and necrosis of his left foot. It was decided that he would need to have the foot drained. The patient had an excisional debridement and amputation of his toes done prior, and now his left foot is necrotic and still has necrosis in the wound, and it was decided that he would need debridement. The patient was consented for the procedure, understanding all risks, benefits and alternatives, then taken to the operating room. DESCRIPTION OF PROCEDURE: Once in the operating room, he was placed on the operating table in supine manner. The area of the left foot was prepped and draped in a sterile surgical manner. We then went ahead and took a number 15 blade and used it to excise all of the skin and subcutaneous tissue that was necrotic. 20 mL of 1% lidocaine was given to the patient. At that time, we then went ahead and got down to the muscle, and all the necrotic muscle was removed, using Bovie cautery and a 15 blade, we then found pus in the tendons, and the tendons were excised as well, using a number 15 blade. Wound was then copiously irrigated. A saline moist dressing was used, and the wound was packed. 4x4s and Kerlix were placed. Patient tolerated the procedure with no complication. Patient was transferred to the PACU in stable condition. LUIS MANUEL FAITH DO PHOSPHORIC ACID SUPERVISOR/[id number]
== END 2016-11-26 16:46 | DRG 710 ==
LOC: JER 11:28 → JERBED 13:49 → J5S 17:32
PROVIDERS: ADMIT Internal Medicine; ATTEND Internal Medicine
PROC: 30233N1 Transfusion of Nonautologous Red Blood Cells into Peripheral Vein, Percutaneous Approach (ICD-10-PCS; 2016-10-28)
PROC: 0Y6Q0Z0 Detachment at Left 1st Toe, Complete, Open Approach (ICD-10-PCS; 2016-10-30)
PROC: 0Y9N0ZZ Drainage of Left Foot, Open Approach (ICD-10-PCS; 2016-10-30)
PROC: 0LBP0ZZ Excision of Left Lower Leg Tendon, Open Approach (ICD-10-PCS; 2016-11-05)
PROC: 02HV33Z Insertion of Infusion Device into Superior Vena Cava, Percutaneous Approach (ICD-10-PCS; 2016-11-15)
PROC: B518YZA Fluoroscopy of Superior Vena Cava using Other Contrast, Guidance (ICD-10-PCS; 2016-11-15)
PROC: 0KBT0ZZ Excision of Left Lower Leg Muscle, Open Approach (ICD-10-PCS; principal; 2016-11-22 15:00)
DX: A41.9 Sepsis, unspecified organism (principal); E11.69 Type 2 diabetes mellitus with other specified complication; E11.65 Type 2 diabetes mellitus with hyperglycemia; E11.52 Type 2 diabetes mellitus with diabetic peripheral angiopathy with gangrene; E11.621 Type 2 diabetes mellitus with foot ulcer; Z79.4 Long term (current) use of insulin; I10 Essential (primary) hypertension; D72.829 Elevated white blood cell count, unspecified; N40.1 Benign prostatic hyperplasia with lower urinary tract symptoms; R33.8 Other retention of urine; D64.9 Anemia, unspecified; J90 Pleural effusion, not elsewhere classified; R41.82 Altered mental status, unspecified; E87.70 Fluid overload, unspecified; J96.01 Acute respiratory failure with hypoxia; I73.9 Peripheral vascular disease, unspecified; Z86.73 Personal history of transient ischemic attack (TIA), and cerebral infarction without residual deficits; E78.5 Hyperlipidemia, unspecified; I31.3 Pericardial effusion (noninflammatory); R01.1 Cardiac murmur, unspecified; E11.40 Type 2 diabetes mellitus with diabetic neuropathy, unspecified; G92 Toxic encephalopathy; R74.0 Nonspecific elevation of levels of transaminase and lactic acid dehydrogenase [LDH]; D63.8 Anemia in other chronic diseases classified elsewhere; M86.9 Osteomyelitis, unspecified; R78.81 Bacteremia; L03.116 Cellulitis of left lower limb; I63.9 Cerebral infarction, unspecified; J98.11 Atelectasis
CPT/HCPCS: 36415; 36430; 36569; 36600; 70450-TC; 70547-TC; 70551-TC; 71010-TC; 71020-TC; 73630-TC-LT; 73721-RT-TC; 76705-TC; 77001-TC; 80048; 80053; 80076; 82009; 82272; 82728; 82803; 83036; 83540; 83550; 83605; 84443; 84466; 85025; 85027; 85610; 85651; 86140; 86850; 86900; 86901; 86922; 87040; 87070; 87086; 87186; 87205; 88304-TC; 88305-TC; 88311-TC; 93005; 93010; 93225; 93226; 93306-TC; 93880-TC; 93970-TC; 93971; 94640; 94760; 97116-GP; 97161-GP; 99285-25; C1751; G0480; J1644; P9038; P9058

== ENCOUNTER 2016-12-20 19:38 | Emergency (ER) | payer OTHER ==
--- NOTE | 2016-12-20 20:23 | PDOC ---
History of Present Illness - General Chief Complaint: Wound Stated Complaint: WOUND COMPLICATION Time Seen by Provider: 12/20/16 19:42 - History of Present Illness Initial Comments: 12/20/16 20:14 CHIEF COMPLAINT: complication of amputation HISTORY OF PRESENT ILLNESS: 56 yo M with hx of IDDM s/p amputation of L hallux sent in by [facility] w/ concern for necrotic 2nd toe of L foot. Patient reports that he was supposed to be seen by Dr. Ponce today but insurance had not approved the visit. Patient denies any pain, fever, nausea, vomiting, diarrhea, and that he only came due to concerns of the doctor at [facility]. PAST MEDICAL HISTORY: as per HPI FAMILY HISTORY: Denies SOCIAL HISTORY: Denies tobacco, alcohol, illicit drug use. SURGICAL HISTORY: Denies ALLERGIES: No known drug allergies REVIEW OF SYSTEMS General/Constitutional: Denies fever or chills. Denies weakness, weight change. HEENT: Denies change in vision. Denies ear pain or discharge. Denies sore throat. Cardiovascular: Denies chest pain or shortness of breath. Respiratory: Denies cough, wheezing, or hemoptysis. Gastrointestinal: Denies nausea, vomiting, diarrhea or constipation. Denies rectal bleeding. Genitourinary: Denies dysuria, frequency, or change in urination. Musculoskeletal: "They said my second toe looks necrotic." Denies pain. Skin and breasts: Denies rash or easy bruising. Neurologic: Denies headache, vertigo, loss of consciousness, or loss of sensation. PHYSICAL EXAM General Appearance: Well-appearing, appropriately dressed. No apparent distress. HEENT: EOMI, PERRLA, normal ENT inspection, normal voice, TMs normal, pharynx normal. No conjunctival pallor. No photophobia, scleral icterus. Neck: Supple. Trachea midline. No tenderness, rigidity, carotid bruit, stridor , lymphadenopathy, or thyromegaly. Respiratory/Chest: Lungs CTAB. No shortness of breath, chest tenderness, respiratory distress, accessory muscle use. No crackles, rales, rhonchi, stridor , wheezing, dullness Cardiovascular: RRR. S1, S2. No JVD, murmur, bradycardia, tachycardia. Vascular Pulses: Dorsalis-Pedis (R): 2+, Dorsalis-Pedis (L): 2+ Gastrointestinal/Abdominal: Normal bowel sounds. Abdomen soft, non-distended. No tenderness or rebound tenderness. No organomegaly, pulsatile mass, guarding , hernia, hepatomegaly, splenomegaly. Lymphatic: No adenopathy, tenderness. Musculoskeletal/Extremities: Normal inspection. FROM of all extremities, normal capillary refill. Pelvis Stable. No CVA tenderness. No tenderness to extremities, pedal edema, swelling, erythema or deformity. Integumentary: Left foot s/p 1st and 3rd digit resection, open wound with minimal slough, edges intact with no warmth, swelling, streaking. 2nd digit with discoloration, dark, necrotic lesion to dorsal aspect. Appropriate color, dry, warm. No cyanosis, erythema, jaundice or rash Neurologic: garbage man II-XII intact. Fully oriented, alert. Appropriate mood/affect. Motor strength 5/5. No appreciable EOM palsy, facial droop or sensory deficit. 12/21/16 01:41 Past History - Past Medical History Allergies/Adverse Reactions: Allergies Allergy/AdvReac Type Severity Reaction Status Date / Time No Known Allergies Allergy Verified 12/20/16 19:54 Home Medications: Ambulatory Orders Clopidogrel Bisulfate [Plavix -] 75 mg PO DAILY #30 tablet 09/01/16 Acetaminophen [Tylenol .Regular Strength -] 650 mg PO Q4H PRN #0 tablet Albuterol 2.5/Ipratropium 0.5 [Duoneb -] 1 amp NEB Q4H PRN #0 amp 11/15/16 Albuterol 2.5/Ipratropium 0.5 [Duoneb -] 1 amp NEB QIDR amp 11/15/16 Amino Acids/Protein Hydrolys [Prosource No Carb Liquid Pkt] 30 ml PO BID@0800, 1730 packet 11/15/16 Ascorbic Acid [Vitamin C -] 500 mg PO DAILY tablet 11/15/16 Docusate Sodium [Colace -] 100 mg PO TID tab 11/15/16 Ferrous Sulfate [Feosol] 325 mg PO BIDWM tab 11/15/16 Guaifenesin Dm [Robitussin Dm -] 5 ml PO Q6H PRN #0 bottle 11/15/16 Heparin - 5,000 unit SQ TID vial 11/15/16 Insulin (Levemir) [Levemir Vial] 7 units SQ HS ml 11/15/16 Insulin Sliding Scale [Novolog Vial Sliding Scale -] 1 vial SQ ACHS units 11/15 Multivitamins [Multivit ([facility])] 1 tab PO DAILY tab 11/15/16 Picc Line Flush [Picc Line Flush -] 8 ml IVPUSH PRN PRN #0 ml 11/15/16 Polyethylene Glycol 3350 [Miralax 119 gm Btl -] 17 gm PO BID bottle 11/15/16 Tamsulosin HCl [Flomax -] 0.8 mg PO DAILY@0830 tab 11/15/16 Cefazolin (Pre-Docked) [Ancef 1Gm Ivpb (Pre-Docked)] 50 ml IVPB Q8H-IV 28 Days 11/25/16 Dextrose 5%-Water - [D5w -] 500 ml IVPB DAILY@1400 bag 11/25/16 Insulin (Levemir) [Levemir Vial] 14 units SQ AM #0 ml 11/25/16 Lisinopril [Prinivil] 40 mg PO DAILY #0 tablet 11/25/16 Nifedipine ER [Procardia XL -] 60 mg PO DAILY tab 11/25/16 Oxycodone HCl [Roxicodone -] 15 mg PO Q4H PRN #0 tablet MDD 90 11/25/16 Diabetes: Yes (not on meds) - Psycho/Social/Smoking Cessation Hx Suicidal Ideation: No Smoking History: Never smoked Have you smoked in the past 12 months: No Information on smoking cessation initiated: No Hx Alcohol Use: No Drug/Substance Use Hx: No Substance Use Type: None Hx Substance Use Treatment: No *Physical Exam - Vital Signs Last Vital Signs Temp Pulse Resp BP Pulse Ox 98.8 F 91 H 18 128/79 96 12/20/16 19:55 12/20/16 19:55 12/20/16 19:55 12/20/16 19:55 12/20/16 19:55 ED Treatment Course - LABORATORY CBC & Chemistry Diagram: 12/20/16 20:30 12/20/16 20:30 - RADIOLOGY Radiology Studies Ordered: Category Date Time Status FOOT-LEFT [RAD] Stat Radiology 12/20/16 20:06 Ordered Medical Decision Making - Medical Decision Making 12/20/16 22:34 56 yo M with hx of IDDM presents to ED for evaluation of left foot s/p amputation 6 weeks ago. -CBC, CMP, PT/INR, T&S -Foot x-ray Labs unremarkable. VSS. Discussed with vascular surgeon, MD Ponce, who states the patient should follow- up in office on Friday morning at 9 AM for reevaluation. Patient should be covered by insurance for 90 days after any open surgery. Wound redressed with xeroform dressing, telfa, and kerlix bandage. Advised patient of signs and symptoms for return to ER; patient verbalized understanding and agrees to plan. 12/21/16 01:44 *DC/Admit/Observation/Transfer Diagnosis at time of Disposition: Necrosis of amputation stump of left lower extremity - Discharge Dispostion Disposition: [facility] Admit: No - Referrals Referrals: Luis Manuel Ponce MD [Staff Physician] - - Patient Instructions Printed Discharge Instructions: DI for Toe or Foot Amputation Additional Instructions: Please follow up with Dr. Ponce on Friday at 9 am as discussed. He is expecting you. If you experience any nausea, fever, vomiting, diarrhea, increased pain, redness, or warmth to the site of the amputation, please return to the ER.
[2016-12-20 20:32] VITALS: BP 128/79; PULSE 91; TEMP 98.8; BMI 25.8
--- NOTE | 2016-12-20 20:56 | PDOC ---
*Physical Exam - Vital Signs Last Vital Signs Temp Pulse Resp BP Pulse Ox 98.8 F 91 H 18 128/79 96 12/20/16 19:55 12/20/16 19:55 12/20/16 19:55 12/20/16 19:55 12/20/16 19:55 ED Treatment Course - LABORATORY CBC & Chemistry Diagram: 12/20/16 20:30 12/20/16 20:30 Medical Decision Making - Medical Decision Making 12/20/16 20:56 Pt seen by the Advanced Practice Provider under my direct supervision Pt interviewed and examined Ancillary studies reviewed I agree with plan as outlined by the Advanced Practice Provider GISSELL Rubio *DC/Admit/Observation/Transfer Diagnosis at time of Disposition: Necrosis of amputation stump of left lower extremity - Discharge Dispostion Disposition: [facility] - Referrals Referrals: Luis Manuel Ponce MD [Staff Physician] - - Patient Instructions Printed Discharge Instructions: DI for Toe or Foot Amputation Additional Instructions: Please follow up with Dr. Ponce on Friday at 9 am as discussed. He is expecting you. If you experience any nausea, fever, vomiting, diarrhea, increased pain, redness, or warmth to the site of the amputation, please return to the ER.
[2016-12-20 20:58] LABS: BASOPHIL 0.2 % (0-2.0); EOSINOPHIL 8.8 % (0-4.5); MCH 26.8 pg (25.7-33.7); MCHC 32.4 g/dl (32.0-35.9); MEAN CELL VOLUME 82.7 fl (80-96); MEAN PLT VOLUME 7.4 fl (7.5-11.1); NEUTROPHILS 49.7 % (42.8-82.8); PLATELET COUNT 323 K/MM3 (134-434); RDW 14.3 % (11.9-15.9); WHITE BLOOD COUNT 7.2 K/mm3 (4.0-10.0)
[2016-12-20 21:21] LABS: INR 1.35 (0.82-1.09); PROTHROMBIN TIME (PATIENT) 14.9 SEC (9.98-11.88)
[2016-12-20 21:30] LABS: ALBUMIN 2.4 g/dl (3.4-5.0); ALK PHOS 95 U/L (45-117); ANION GAP 8 (8-16); BILIRUBIN,TOTAL 0.2 mg/dL (0.2-1.0); CALCIUM 8.4 mg/dL (8.5-10.1); CO2 23 mmol/L (21-32); CREATININE 0.8 mg/dL (0.7-1.3); GLUCOSE,RANDOM 120 mg/dL (74-106); SGOT/AST 8 U/L (15-37); SGPT/ALT 11 U/L (12-78); TOT PROT 7.1 g/dl (6.4-8.2)
== END 2016-12-21 00:10 ==
LOC: JER 19:38
DX: T87.54 Necrosis of amputation stump, left lower extremity (principal); E11.52 Type 2 diabetes mellitus with diabetic peripheral angiopathy with gangrene; Z79.4 Long term (current) use of insulin
CPT/HCPCS: 36415; 73630-TC-LT; 80053; 83605; 85025; 85610; 86850; 86900; 86901; 87040; 99282-25

== ENCOUNTER 2017-01-20 16:47 | Emergency (ER) | payer OTHER ==
[2017-01-20 16:51] VITALS: BP 129/95; PULSE 85; TEMP 97.7; BMI 24.7
== END 2017-01-20 17:31 | disposition left against medical advice (07) ==
LOC: JER 16:47
DX: Z53.21 Procedure and treatment not carried out due to patient leaving prior to being seen by health care provider (principal)
CPT/HCPCS: 99281-25

== ENCOUNTER 2017-04-08 14:28 | Inpatient (IN) | payer OTHER ==
--- NOTE | 2017-04-08 14:56 | PDOC ---
History of Present Illness - General Chief Complaint: Wound Infection Stated Complaint: SENT BY PCP Time Seen by Provider: 04/08/17 14:48 History Source: Patient Exam Limitations: No Limitations - History of Present Illness Initial Comments: 04/08/17 18:21 Patient is a 57-year-old male with past medical history of diabetes, hypertension presents to the emergency department from wound care, with a complaint of a swollen left leg. He states that up in wound care they did an ultrasound of his leg and it showed enlarged lymph nodes in the groin. Wound care was concerned that he had an infection so they sent him to the emergency department for evaluation. Patient has no complaints at this time. Denies pain in the leg, numbness and tingling, fevers, chills, vomiting, nausea. Vascular: Dr. Ponce ID: Dr. Cedeno PCP:Dr. Petersen Triage Vitals notable for a BP of 190/101 Past History - Past Medical History Allergies/Adverse Reactions: Allergies Allergy/AdvReac Type Severity Reaction Status Date / Time No Known Allergies Allergy Verified 04/08/17 14:39 Home Medications: Ambulatory Orders Insulin Sliding Scale [Novolog Vial Sliding Scale -] 1 vial SQ ACHS units 11/15 Insulin (Levemir) [Levemir Vial] 14 units SQ AM #0 ml 11/25/16 Lisinopril [Prinivil] 40 mg PO DAILY #0 tablet 11/25/16 Nifedipine ER [Procardia XL -] 60 mg PO DAILY tab 11/25/16 Collagenase Clostridium Hist. [Santyl] 1 applic TP DAILY #90 oint...g. 02/07/17 Collagenase Clostridium Hist. [Santyl] 1 applic TP DAILY #90 oint...g. 03/21/17 Glipizide [Glucotrol] 0 mg PO BID 04/08/17 Insulin (Levemir) [Levemir Vial] 4 units SQ HS 04/08/17 Metformin HCl [Glucophage -] 500 mg PO DAILY 04/08/17 Oxycodone HCl 15 mg PO DAILY 04/08/17 Diabetes: Yes (not on meds) HTN: Yes - Suicide/Smoking/Psychosocial Hx Smoking History: Never smoked Have you smoked in the past 12 months: No Information on smoking cessation initiated: No Hx Alcohol Use: No Drug/Substance Use Hx: No Substance Use Type: None Hx Substance Use Treatment: No Review of Systems - Review of Systems Able to Perform ROS?: Yes Comments:: 04/08/17 18:55 CONSTITUTIONAL: Present: chills. Absent: fever, chills, diaphoresis, generalized weakness, malaise, loss of appetite HEENT: Absent: rhinorrhea, nasal congestion, throat pain, throat swelling, difficulty swallowing, mouth swelling, ear pain, eye pain, visual Changes CARDIOVASCULAR: Absent: chest pain, loss of consciousness, palpitations, irregular heart rate, peripheral edema RESPIRATORY: Absent: cough, shortness of breath, dyspnea with exertion, orthopnea, wheezing, stridor, hemoptysis GASTROINTESTINAL: Absent: abdominal pain, abdominal distension, nausea, vomiting, diarrhea, constipation, melena, hematochezia GENITOURINARY: Absent: dysuria, frequency, urgency, hesitancy, hematuria, flank pain, genital pain MUSCULOSKELETAL: Absent: myalgia, arthralgia, joint swelling SKIN: Present: Healing wound on L foot. Absent: rash, itching, pallor HEMATOLOGIC/IMMUNOLOGIC: Absent: easy bleeding, easy bruising, lymphadenopathy, frequent infections ENDOCRINE: Absent: unexplained weight gain, unexplained weight loss, heat intolerance, cold intolerance NEUROLOGIC: Absent: headache, focal weakness or paresthesias, dizziness, unsteady gait, seizure, mental status changes, bladder or bowel incontinence PSYCHIATRIC: Absent: anxiety, depression, suicidal or homicidal ideation, hallucinations. *Physical Exam - Vital Signs Last Vital Signs Temp Pulse Resp BP Pulse Ox 98.2 F 89 16 194/107 100 04/08/17 14:35 04/08/17 14:35 04/08/17 14:35 04/08/17 14:35 04/08/17 14:35 - Physical Exam Comments: 04/08/17 18:55 GENERAL: Well developed, well nourished. Awake and alert. No acute distress. HEENT: Normocephalic, atraumatic. PERRLA, EOMI. No conjunctival pallor. Sclera are non- icteric. Moist mucous membranes. Oropharynx is clear. NECK: Supple. Full ROM. No JVD. Carotid pulses 2+ and symmetric, without bruits. No thyromegaly. No lymphadenopathy. CARDIOVASCULAR: Regular rate and rhythm. No murmurs, rubs, or gallops. Distal pulses are 2+ and symmetric. PULMONARY: No evidence of respiratory distress. Lungs clear to auscultation bilaterally. No wheezing, rales or rhonchi. ABDOMINAL: Soft. Non-tender. Non-distended. No rebound or guarding. No organomegaly. Normoactive bowel sounds. MUSCULOSKELETAL Normal range of motion at all joints. No bony deformities or tenderness. No CVA tenderness. EXTREMITIES: 4+ pitting edema and warmth surrounding the leg. No cyanosis. No clubbing. No calf tenderness. SKIN: [id number] healing wound over the L amputation site. No signs of infection. Warm and dry. Normal capillary refill. No rashes. No jaundice. NEUROLOGICAL: Alert, awake, appropriate. Cranial nerves 2-12 intact. No deficits to light touch and temperature in face, upper extremities and lower extremities. No motor deficits in the in face, upper extremities and lower extremities. Normoreflexic in the upper and lower extremities. Normal speech. Toes are down- going bilaterally. Gait is normal without ataxia. PSYCHIATRIC: Cooperative. Good eye contact. Appropriate mood and affect. ED Treatment Course - LABORATORY CBC & Chemistry Diagram: 04/15/17 07:00 04/15/17 07:00 Medical Decision Making - Medical Decision Making 04/08/17 16:04 Patient is a 57-year-old male past medical history of hypertension and diabetes noncompliant with medication presents emergency department with left leg swelling. The wound is well healing and with no obvious signs of infection however spoke with Dr. Cedeno. He states that they did an ultrasound upstairs in wound care for the left leg swelling and saw no evidence of DVT however there were large inflamed lymph nodes with caseating centers in the groin. He would like to admit for IV antibiotics. Patient's pressure is currently elevated 180/ 100. He is asymptomatic at this time we'll continue to closely monitor his blood pressure if he needs IV medication. 1.CBC, CMP, lactic acid, PT/INR, type and screen, blood cultures, UA, UC 2.official ultrasound of the left leg for DVT and soft tissue of the groin for lymph nodes 3.reevaluate 04/08/17 19:00 Sign out given to BRIGETTE Fagan. Waiting for official ultrasound read so he can be admitted to the hospitalist service. Call placed to Dr. Noel his creatinine is currently within normal limits and he can now chooses antibiotics for presumptive infection. *DC/Admit/Observation/Transfer Diagnosis at time of Disposition: Enlarged lymph node - Discharge Dispostion Condition at time of disposition: Stable
[2017-04-08 16:25] LABS: MCH 28.4 pg (25.7-33.7); MCHC 33.3 g/dl (32.0-35.9); MEAN CELL VOLUME 85.3 fl (80-96); MEAN PLT VOLUME 7.6 fl (7.5-11.1); NEUTROPHILS 56.5 % (42.8-82.8); PLATELET COUNT 330 K/MM3 (134-434); RDW 12.4 % (11.9-15.9); WHITE BLOOD COUNT 6.2 K/mm3 (4.0-10.0)
[2017-04-08 16:44] LABS: INR 1.12 (0.82-1.09); PROTHROMBIN TIME (PATIENT) 12.3 SEC (9.98-11.88)
[2017-04-08 16:59] LABS: ALBUMIN 2.9 g/dl (3.4-5.0); ANION GAP 9 (8-16); BILIRUBIN,TOTAL 0.2 mg/dL (0.2-1.0); CALCIUM 8.8 mg/dL (8.5-10.1); CO2 26 mmol/L (21-32); CREATININE 0.8 mg/dL (0.7-1.3); GLUCOSE,RANDOM 163 mg/dL (74-106); PHOSPHOROUS 3.5 mg/dL (2.5-4.9); SGOT/AST 18 U/L (15-37); SGPT/ALT 22 U/L (12-78); TOT PROT 6.9 g/dl (6.4-8.2)
[2017-04-08 17:00] LABS: ALK PHOS 92 U/L (45-117)
[2017-04-08 17:03] LABS: URINE APPEARANCE CLEAR; URINE BILIRUBIN NEGATIVE (NEGATIVE); URINE BLOOD 1+ (NEGATIVE); URINE COLOR LTYELLOW; URINE GLUCOSE (UA) 1+ (NEGATIVE); URINE KETONE NEGATIVE (NEGATIVE); URINE LEUK ESTERASE NEGATIVE (NEGATIVE); URINE NITRITE NEGATIVE (NEGATIVE); URINE UROBILINOGEN NEGATIVE mg/dL (0.2-1.0)
[2017-04-08 17:11] LABS: URINE PROTEIN 3+ (NEGATIVE)
[2017-04-08 18:03] LABS: URINE MUCUS RARE; URINE RBC 9 /hpf (0-3); URINE WBC 2 /hpf (3-5)
--- NOTE | 2017-04-08 20:26 | PDOC ---
*Physical Exam - Vital Signs Last Vital Signs Temp Pulse Resp BP Pulse Ox 98.2 F 69 16 185/102 100 04/08/17 14:35 04/08/17 17:25 04/08/17 17:25 04/08/17 17:25 04/08/17 17:25 ED Treatment Course - LABORATORY CBC & Chemistry Diagram: 04/08/17 15:55 04/08/17 15:55 - ADDITIONAL ORDERS Additional order review: Laboratory Results 04/08/17 04/08/17 04/08/17 15:55 15:55 15:55 PT with INR INR Sodium 142 Potassium 4.3 Chloride 107 Carbon Dioxide 26 Anion Gap 9 BUN 27 H Creatinine 0.8 Creat Clearance w eGFR > 60 Random Glucose 163 H D Lactic Acid 1.3 Calcium 8.8 Phosphorus 3.5 Magnesium 2.0 Total Bilirubin 0.2 AST 18 D ALT 22 D Alkaline Phosphatase 92 Total Protein 6.9 Albumin 2.9 L D Urine Color Urine Appearance Urine pH Ur Specific [place] Urine Protein Urine Glucose (UA) Urine Ketones Urine Blood Urine Nitrite Urine Bilirubin Urine Urobilinogen Urine RBC Urine WBC Urine Mucus Blood Type O NEGATIVE Antibody Screen Negative 04/08/17 04/08/17 15:55 15:55 PT with INR 12.30 H INR 1.12 Sodium Potassium Chloride Carbon Dioxide Anion Gap BUN Creatinine Creat Clearance w eGFR Random Glucose Lactic Acid Calcium Phosphorus Magnesium Total Bilirubin AST ALT Alkaline Phosphatase Total Protein Albumin Urine Color Ltyellow Urine Appearance Clear Urine pH 5.0 Ur Specific [place] 1.025 Urine Protein 3+ H Urine Glucose (UA) 1+ H Urine Ketones Negative Urine Blood 1+ H Urine Nitrite Negative Urine Bilirubin Negative Urine Urobilinogen Negative Urine RBC 9 Urine WBC 2 Urine Mucus Rare Blood Type Antibody Screen 04/08/17 15:55 RBC 3.22 L D MCV 85.3 MCHC 33.3 RDW 12.4 D MPV 7.6 Neutrophils % 56.5 Lymphocytes % 27.9 Monocytes % 10.6 H Eosinophils % 4.0 Basophils % 1.0 D - RADIOLOGY Radiology Studies Ordered: Category Date Time Status CHEST PA & LAT [RAD] Stat Radiology 04/08/17 19:53 Ordered Progress Note - Progress Note Progress Note: : Called Dr. Cedeno/ID [phone] *DC/Admit/Observation/Transfer Diagnosis at time of Disposition: Enlarged lymph node - Discharge Dispostion Condition at time of disposition: Stable Admit: Yes - Referrals Referrals: Waldemar Eid MD [Primary Care Provider] -
[2017-04-08] MEDS ORDERED: PIPERACILLIN/TAZOB 4.5 GM/100 ML PRE-DOCKED IVPB ONE (20:32)
[2017-04-08] MEDS ORDERED: PIPERACILLIN/TAZOB 4.5 GM 100 ML IVPB ONE (20:51)
--- NOTE | 2017-04-08 21:40 | HP ---
CHIEF COMPLAINT: Left Leg Swelling PCP: Dr. Waldemar Eid HISTORY OF PRESENT ILLNESS: This is a 57 y/o male with a past medical history of Hypertension, Type II DM ( non-complaint), PAD. Who presents to the ED from the [facility] with LLE swelling x4 days. Patient reports having increased shooting pain to his lateral LLE. Patient reports while at the wound center, he had an ultrasound of his leg and it showed enlarged lymph nodes in the groin. The patient reports having chills without subjective fever. Patient denies cough, SOB, CP, AP, N/V/D, constipation, dysuria. ER course was notable for: (1) BP 194/107~ 185/102 (2) Urine- +3 protein, +1 blood (3) Glucose 163 Recent Travel: None PAST MEDICAL HISTORY: HTN Type II DM PAD PAST SURGICAL HISTORY: L- Great Toe Amputation Femoral Popilteal Social History: Smoking: Never Alcohol: None Drugs: None lives with spouse, not employed Family History: Mother: Diabetes, age 92 Sister: Diabetes Allergies No Known Allergies Allergy (Verified 04/08/17 14:39) HOME MEDICATIONS: Home Medications Medication Instructions Recorded Insulin Sliding Scale [Novolog 1 vial SQ ACHS units 11/15/16 Vial Sliding Scale -] Insulin (Levemir) [Levemir Vial] 14 units SQ AM #0 ml 11/25/16 Lisinopril [Prinivil] 40 mg PO DAILY #0 tablet 11/25/16 Nifedipine ER [Procardia XL -] 60 mg PO DAILY tab 11/25/16 Collagenase Clostridium Hist. 1 applic TP DAILY #90 oint...g. 02/07/17 [Santyl] Collagenase Clostridium Hist. 1 applic TP DAILY #90 oint...g. 03/21/17 [Santyl] Glipizide [Glucotrol] 0 mg PO BID 04/08/17 Insulin (Levemir) [Levemir Vial] 4 units SQ HS 04/08/17 Metformin HCl [Glucophage -] 500 mg PO DAILY 04/08/17 Oxycodone HCl 15 mg PO DAILY 04/08/17 REVIEW OF SYSTEMS CONSTITUTIONAL: chills Absent: fever, diaphoresis, generalized weakness, malaise, loss of appetite, weight change HEENT: Absent: rhinorrhea, nasal congestion, throat pain, throat swelling, difficulty swallowing, mouth swelling, ear pain, eye pain, visual changes CARDIOVASCULAR: peripheral edema Absent: chest pain, syncope, palpitations, irregular heart rate, lightheadedness RESPIRATORY: Absent: cough, shortness of breath, dyspnea with exertion, orthopnea, wheezing, stridor, hemoptysis GASTROINTESTINAL: Absent: abdominal pain, abdominal distension, nausea, vomiting, diarrhea, constipation, melena, hematochezia GENITOURINARY: Absent: dysuria, frequency, urgency, hesitancy, hematuria, flank pain, genital pain MUSCULOSKELETAL: left leg pain Absent: myalgia, arthralgia, joint swelling, back pain, neck pain SKIN: Absent: rash, itching, pallor HEMATOLOGIC/IMMUNOLOGIC: Absent: easy bleeding, easy bruising, lymphadenopathy, frequent infections ENDOCRINE: Absent: unexplained weight gain, unexplained weight loss, heat intolerance, cold intolerance NEUROLOGIC: Absent: headache, focal weakness or paresthesias, dizziness, unsteady gait, seizure, mental status changes, bladder or bowel incontinence PSYCHIATRIC: Absent: anxiety, depression, suicidal or homicidal ideation, hallucinations. PHYSICAL EXAMINATION Vital Signs - 24 hr 04/08/17 04/08/17 04/08/17 14:35 15:50 17:25 Temperature 98.2 F Pulse Rate 89 Pulse Rate [ 69 Apical] Respiratory 16 16 Rate Blood Pressure 194/107 Blood Pressure 187/97 185/102 [Right Arm] O2 Sat by Pulse 100 100 Oximetry (%) GENERAL: Awake, alert, and fully oriented, in no acute distress. HEAD: Normal with no signs of trauma. EYES: Pupils equal, round and reactive to light, extraocular movements intact, sclera anicteric, conjunctiva clear. No lid lag. EARS, NOSE, THROAT: Ears normal, nares patent, oropharynx clear without exudates. Moist mucous membranes. NECK: Normal range of motion, supple without lymphadenopathy, JVD, or masses. LUNGS: Breath sounds equal, clear to auscultation bilaterally. No wheezes, and no crackles. No accessory muscle use. HEART: Regular rate and rhythm, normal S1 and S2 without murmur, rub or gallop. ABDOMEN: Soft, nontender, not distended, normoactive bowel sounds, no guarding, no rebound, no masses. No hepatomegaly or splenomegaly. MUSCULOSKELETAL: Left leg tenderness, Normal range of motion at all joints. No bony deformities. No CVA tenderness. UPPER EXTREMITIES: 2+ pulses, warm, well-perfused. No cyanosis. No clubbing. No peripheral edema. LOWER EXTREMITIES:+3 L>R peripheral edema. 2+ pulses, warm, well-perfused. No calf tenderness. NEUROLOGICAL: Cranial nerves II-XII intact. Normal speech. Gait not observed. PSYCHIATRIC: Cooperative. Good eye contact. Appropriate mood and affect. SKIN: 6 x 5cm ulcer ventral aspect of L-foot. Pea size ulcer to R-toe #2. Warm , dry, normal turgor, no rashes noted, normal capillary refill. Laboratory Results - last 24 hr 04/08/17 04/08/17 04/08/17 15:55 15:55 15:55 WBC 6.2 RBC 3.22 L D Hgb 9.1 L D Hct 27.5 L D MCV 85.3 MCH 28.4 MCHC 33.3 RDW 12.4 D Plt Count 330 MPV 7.6 Neutrophils % 56.5 Lymphocytes % 27.9 Monocytes % 10.6 H Eosinophils % 4.0 Basophils % 1.0 D PT with INR 12.30 H INR 1.12 Sodium Potassium Chloride Carbon Dioxide Anion Gap BUN Creatinine Creat Clearance w eGFR POC Glucometer Random Glucose Lactic Acid Calcium Phosphorus Magnesium Total Bilirubin AST ALT Alkaline Phosphatase Total Protein Albumin Urine Color Ltyellow Urine Appearance Clear Urine pH 5.0 Ur Specific [place] 1.025 Urine Protein 3+ H Urine Glucose (UA) 1+ H Urine Ketones Negative Urine Blood 1+ H Urine Nitrite Negative Urine Bilirubin Negative Urine Urobilinogen Negative Urine RBC 9 Urine WBC 2 Urine Mucus Rare Blood Type Antibody Screen 04/08/17 04/08/17 04/08/17 15:55 15:55 15:55 WBC RBC Hgb Hct MCV MCH MCHC RDW Plt Count MPV Neutrophils % Lymphocytes % Monocytes % Eosinophils % Basophils % PT with INR INR Sodium 142 Potassium 4.3 Chloride 107 Carbon Dioxide 26 Anion Gap 9 BUN 27 H Creatinine 0.8 Creat Clearance w eGFR > 60 POC Glucometer Random Glucose 163 H D Lactic Acid 1.3 Calcium 8.8 Phosphorus 3.5 Magnesium 2.0 Total Bilirubin 0.2 AST 18 D ALT 22 D Alkaline Phosphatase 92 Total Protein 6.9 Albumin 2.9 L D Urine Color Urine Appearance Urine pH Ur Specific [place] Urine Protein Urine Glucose (UA) Urine Ketones Urine Blood Urine Nitrite Urine Bilirubin Urine Urobilinogen Urine RBC Urine WBC Urine Mucus Blood Type O NEGATIVE Antibody Screen Negative 04/08/17 20:58 WBC RBC Hgb Hct MCV MCH MCHC RDW Plt Count MPV Neutrophils % Lymphocytes % Monocytes % Eosinophils % Basophils % PT with INR INR Sodium Potassium Chloride Carbon Dioxide Anion Gap BUN Creatinine Creat Clearance w eGFR POC Glucometer [phone] Random Glucose Lactic Acid Calcium Phosphorus Magnesium Total Bilirubin AST ALT Alkaline Phosphatase Total Protein Albumin Urine Color Urine Appearance Urine pH Ur Specific [place] Urine Protein Urine Glucose (UA) Urine Ketones Urine Blood Urine Nitrite Urine Bilirubin Urine Urobilinogen Urine RBC Urine WBC Urine Mucus Blood Type Antibody Screen ASSESSMENT/PLAN: This is a 57 y/o man with a PMHx of: HTN, Type II DM, PAD. Admitted to [facility] for Enlarged Lymph Nodes, Left Leg Swelling for further evaluation of their emergent condition. Problem List - Problem (1) Enlarged lymph node Assessment/Plan: - Likely secondary to infection vs malignancy - Soft tissue extremity US- nonspecific mildly enlarged bilateral inguinal lymph nodes - ID is following - Blood Cultures-pending - Vancomycin, Zosyn given in ED - Continue Vanco/Zosyn for broad spectrum coverage - Monitor CBC - Monitor vitals Code(s): R59.9 - ENLARGED LYMPH NODES, UNSPECIFIED (2) Hypertension Assessment/Plan: - Not controlled - Patient reports taking his medications daily, is currently asymptomatic - Will continue to monitor BP - Consider diuretic concern for HF secondary to bilateral peripheral edema - Chest Xray image reviewed - Monitor renal function Code(s): I10 - ESSENTIAL (PRIMARY) HYPERTENSION Qualifiers: (3) Diabetic ulcer of left foot Assessment/Plan: - s/p wound debridement - Continue wound care treatments - Consider Vascular Consult Code(s): E11.621 - TYPE 2 DIABETES MELLITUS WITH FOOT ULCER L97.529 - NON-PRESSURE CHRONIC ULCER OTH PRT LEFT FOOT W UNSP SEVERITY (4) Insulin dependent diabetes mellitus Assessment/Plan: - Moderately controlled - BGMs - ISS - Continue home meds, will hold Metformin 2/2 concern for LA, related to HF Code(s): E11.9 - TYPE 2 DIABETES MELLITUS WITHOUT COMPLICATIONS Z79.4 - SENIOR CARE (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 OF INSULIN (5) Type 2 diabetes mellitus with diabetic neuropathy, unspecified Assessment/Plan: - See above Code(s): E11.40 - TYPE 2 DIABETES MELLITUS WITH DIABETIC NEUROPATHY, UNSP Qualifiers: (6) PAD (peripheral artery disease) Assessment/Plan: - s/p LLE angioplasty - Continue to monitor and treat accordingly Code(s): I73.9 - PERIPHERAL VASCULAR DISEASE, UNSPECIFIED (7) Normocytic anemia Assessment/Plan: - At baseline - Will transfuse if Hgb < 7.0 - Monitor CBC Code(s): D64.9 - ANEMIA, UNSPECIFIED (8) DVT prophylaxis Assessment/Plan: - OOB - Heparin SQ Code(s): [id number] - Visit type - Emergency Visit Emergency Visit: Yes ED Registration Date: 04/08/17 Care time: The patient presented to the Emergency Department on the above date and was hospitalized for further evaluation of their emergent condition. - New Patient This patient is new to me today: Yes Date on this admission: 04/08/17 - Critical Care Critical Care patient: No
--- NOTE | 2017-04-08 21:49 | CON.ID ---
<Guera Harper - Last Filed: 04/08/17 23:49> Home Medications - Allergies Allergies/Adverse Reactions: Allergies Allergy/AdvReac Type Severity Reaction Status Date / Time No Known Allergies Allergy Verified 04/08/17 14:39 - Home Medications Home Medications: Ambulatory Orders Insulin Sliding Scale [Novolog Vial Sliding Scale -] 1 vial SQ ACHS units 11/15 Insulin (Levemir) [Levemir Vial] 14 units SQ AM #0 ml 11/25/16 Lisinopril [Prinivil] 40 mg PO DAILY #0 tablet 11/25/16 Nifedipine ER [Procardia XL -] 60 mg PO DAILY tab 11/25/16 Collagenase Clostridium Hist. [Santyl] 1 applic TP DAILY #90 oint...g. 02/07/17 Collagenase Clostridium Hist. [Santyl] 1 applic TP DAILY #90 oint...g. 03/21/17 Glipizide [Glucotrol] 0 mg PO BID 04/08/17 Insulin (Levemir) [Levemir Vial] 4 units SQ HS 04/08/17 Metformin HCl [Glucophage -] 500 mg PO DAILY 04/08/17 Oxycodone HCl 15 mg PO DAILY 04/08/17 Physical Exam Vital Signs: Vital Signs Temperature 98.8 F 04/08/17 22:26 Pulse Rate 92 H 04/08/17 22:26 Respiratory Rate 18 04/08/17 22:26 Blood Pressure 190/100 04/08/17 22:26 O2 Sat by Pulse Oximetry (%) 99 04/08/17 22:26 Problem List - Problems (1) Enlarged lymph node Code(s): R59.9 - ENLARGED LYMPH NODES, UNSPECIFIED (2) Type 2 diabetes mellitus with diabetic neuropathy, unspecified Code(s): E11.40 - TYPE 2 DIABETES MELLITUS WITH DIABETIC NEUROPATHY, UNSP (3) Hypertension Code(s): I10 - ESSENTIAL (PRIMARY) HYPERTENSION (4) Insulin dependent diabetes mellitus Code(s): E11.9 - TYPE 2 DIABETES MELLITUS WITHOUT COMPLICATIONS Z79.4 - LONG-TERM (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 OF INSULIN (5) Normocytic anemia Code(s): D64.9 - ANEMIA, UNSPECIFIED (6) DVT prophylaxis Code(s): [id number] - <Annika Cedeno - Last Filed: 04/09/17 16:23> Consult Consult Specialty:: infectious diseases Reason for Consultation:: cellulitis of the leg - History of Present Illness Chief Complaint: swelling and redness of the leg History of Present Illness: 57 y/o male with a past medical history of Hypertension, Type II DM (non- complaint), PAD. Who presents to the ED from the Wound Center with LLE swelling x4 days. Patient reports having increased shooting pain to his lateral LLE. Patient reports while at the wound center, he had an ultrasound of his leg and it showed enlarged lymph nodes in the groin. The patient reports having chills without subjective fever. Patient denies cough, SOB, CP, AP, N/V/D, constipation , dysuria. 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 Cardio/Vascular: Yes: HTN, Other (PAD) Endocrine: Yes: Diabetes Mellitus - Alcohol/Substance Use Hx Alcohol Use: No History of Substance Use: reports: None - Smoking History Smoking history: Never smoked Have you smoked in the past 12 months: No - Social History Usual Living Arrangement: Alone 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[employer] Review of Systems - Review of Systems Constitutional: reports: Fever, Weakness Eyes: reports: No Symptoms HENT: reports: No Symptoms Neck: reports: No Symptoms Cardiovascular: reports: No Symptoms Respiratory: reports: No Symptoms Gastrointestinal: reports: No Symptoms Genitourinary: reports: No Symptoms Musculoskeletal: reports: Muscle Cramps Integumentary: reports: Erythema Neurological: reports: No Symptoms Endocrine: reports: No Symptoms Hematology/Lymphatic: reports: No Symptoms Psychiatric: reports: No Symptoms Physical Exam Vital Signs: Vital Signs Temperature 98.2 F 04/08/17 14:35 Pulse Rate 69 04/08/17 17:25 Respiratory Rate 16 04/08/17 17:25 Blood Pressure 185/102 04/08/17 17:25 O2 Sat by Pulse Oximetry (%) 100 04/08/17 17:25 Constitutional: Yes: Calm, Mild Distress, Other Eyes: Yes: Conjunctiva Clear Cardiovascular: Yes: Regular Rate and Rhythm Respiratory: Yes: Regular, CTA Bilaterally Gastrointestinal: Yes: Normal Bowel Sounds, Soft Musculoskeletal: Yes: Other Extremities: Yes: Erythema, Other (healing wound of he left leg) Integumentary: Yes: Erythema Wound/Incision: Yes: Other (wound looked at minimal drainge) Neurological: Yes: Alert, Oriented Labs: CBC, BMP 04/08/17 15:55 04/08/17 15:55 Imaging - Results Chest X-ray: Report Reviewed, Image Reviewed Ultrasound: Report Reviewed, Image Reviewed Assessment/Plan Problem List - Problem (1) Enlarged lymph node Code(s): R59.9 - ENLARGED LYMPH NODES, UNSPECIFIED (2) Hypertension Code(s): I10 - ESSENTIAL (PRIMARY) HYPERTENSION Qualifiers: (3) Diabetic ulcer of left foot Code(s): E11.621 - TYPE 2 DIABETES MELLITUS WITH FOOT ULCER L97.529 - NON-PRESSURE CHRONIC ULCER OTH PRT LEFT FOOT W UNSP SEVERITY (4) Insulin dependent diabetes mellitus Code(s): E11.9 - TYPE 2 DIABETES MELLITUS WITHOUT COMPLICATIONS Z79.4 - CHIEF TECHNOLOGIST (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 OF INSULIN (5) Type 2 diabetes mellitus with diabetic neuropathy, unspecified Code(s): E11.40 - TYPE 2 DIABETES MELLITUS WITH DIABETIC NEUROPATHY, UNSP Qualifiers: (6) PAD (peripheral artery disease) Code(s): I73.9 - PERIPHERAL VASCULAR DISEASE, UNSPECIFIED (7) Normocytic anemia 8 cellulitis of the left leg plan will start on abx await for cx report rest as per primary team
[2017-04-08] MEDS ORDERED: VANCOMYCIN 1 GRAM (PRE-DOCKED) 250 ML IVPB ONE (22:12)
[2017-04-08] MEDS: VANCOMYCIN 1,000 MG in DEXTROSE 5%-WATER - 250 ML IVPB SCH (22:26)
[2017-04-08] MEDS ORDERED: oxyCODONE HCL 5 MG TABLET PO PRN (23:40)
[2017-04-09 03:37] VITALS: BMI 26.4
[2017-04-09] MEDS: HEPARIN NA (PORCINE) 5,000 UNITS/ML 1ML VIAL SQ SCH ×3 (06:32→22:36)
[2017-04-09] MEDS: INSULIN DETEMIR 100 UNITS/ML MDV SQ SCH ×2 (06:33→22:35)
[2017-04-09] MEDS: INSULIN SLIDING SCALE (NOVOLOG) 1 VIAL SQ SCH ×3 (06:33→17:50)
[2017-04-09] MEDS ORDERED: glipiZIDE 5 MG TABLET (FP) PO SCH (07:00)
[2017-04-09 07:05] LABS: BASOPHIL 0.8 % (0-2.0); EOSINOPHIL 4.8 % (0-4.5); MCH 28.2 pg (25.7-33.7); MCHC 33.4 g/dl (32.0-35.9); MEAN CELL VOLUME 84.3 fl (80-96); MEAN PLT VOLUME 7.1 fl (7.5-11.1); NEUTROPHILS 54.7 % (42.8-82.8); PLATELET COUNT 275 K/MM3 (134-434); RDW 12.2 % (11.9-15.9); WHITE BLOOD COUNT 6.3 K/mm3 (4.0-10.0)
[2017-04-09] MEDS ORDERED: INSULIN (NOVOLOG) ASPART 100 UNITS/ML 10ML VIAL ONE (07:05)
[2017-04-09 07:33] LABS: ANION GAP 8 (8-16); CALCIUM 8.2 mg/dL (8.5-10.1); CO2 27 mmol/L (21-32); CREATININE 0.8 mg/dL (0.7-1.3); GLUCOSE,RANDOM 155 mg/dL (74-106)
[2017-04-09] MEDS ORDERED: PT OWN MED DRAWER 7, Y5N ONE (09:04)
[2017-04-09] MEDS: NIFEdipine E.R 60 MG TABLET (UD) PO SCH (09:06)
[2017-04-09] MEDS: LISINOPRIL 20 MG TABLET (FP) PO SCH (09:06)
[2017-04-09] MEDS ORDERED: PIPERACILLIN/TAZOB 3.375 GM/50 ML PRE-DOCKED IVPB SCH (10:00)
[2017-04-09] MEDS ORDERED: VANCOMYCIN 1,000 MG in DEXTROSE 5%-WATER - 250 ML IVPB SCH (10:00)
--- NOTE | 2017-04-09 11:01 | EKG ---
Test Reason : Blood Pressure : / mmHG Vent. Rate : 091 BPM Atrial Rate : 091 BPM P-R Int : 184 ms QRS Dur : 068 ms QT Int : 348 ms P-R-T Axes : 022 -06 028 degrees QTc Int : 428 ms NORMAL SINUS RHYTHM POSSIBLE LEFT ATRIAL ENLARGEMENT INFERIOR INFARCT , AGE UNDETERMINED ABNORMAL ECG WHEN COMPARED WITH ECG OF 13-NOV-2016 11:27, CRITERIA FOR SEPTAL INFARCT ARE NO LONGER PRESENT NO SIGNIFICANT CHANGE WAS FOUND Confirmed by DELTA COY MD ([id number]) on 04/09/2017 11:01:02 AM Referred By: Confirmed By:DELTA COY MD
[2017-04-09] MEDS: VANCOMYCIN 1,000 MG in DEXTROSE 5%-WATER - 250 ML IVPB SCH (11:20)
--- NOTE | 2017-04-09 15:13 | PN ---
Physical Exam: SUBJECTIVE: Patient seen and examined at bedside. Has pain in left calf. Patient states he came to the wound clinic for his regularly scheduled appointment and told the staff of his left calf pain. His enlarged inguinal lymph nodes were discovered on ultrasound. He was unaware of these enlarged nodes, they had not been painful or bothersome to him. OBJECTIVE: Vital Signs Period Temp Pulse Resp BP Sys/Lopez Pulse Ox Last 24 Hr 97.9 F-98.8 F 85-92 16-18 134-190/82-100 98-99 GENERAL: The patient is awake, alert, and fully oriented, in no acute distress. LUNGS: Breath sounds equal, clear to auscultation bilaterally, no wheezes, no crackles, no accessory muscle use. HEART: Regular rate and rhythm, S1, S2 without murmur, rub or gallop. ABDOMEN: Soft, nontender, nondistended, normoactive bowel sounds, no guarding, no rebound EXTREMITIES: Left leg swelling, + calf tenderness; foot with surgical dressing c/d/i; wounds not visualized NEUROLOGICAL: Cranial nerves II through XII grossly intact. Normal speech, gait not observed. Laboratory Results - last 24 hr 04/08/17 04/09/17 04/09/17 20:58 06:10 06:10 WBC 6.3 RBC 3.01 L Hgb 8.5 L Hct 25.4 L MCV 84.3 MCH 28.2 MCHC 33.4 RDW 12.2 Plt Count 275 MPV 7.1 L Neutrophils % 54.7 Lymphocytes % 29.0 Monocytes % 10.7 H Eosinophils % 4.8 H Basophils % 0.8 Sodium 141 Potassium 3.9 Chloride 106 Carbon Dioxide 27 Anion Gap 8 BUN 22 H Creatinine 0.8 POC Glucometer [phone] Random Glucose 155 H Calcium 8.2 L 04/09/17 04/09/17 06:31 11:18 WBC RBC Hgb Hct MCV MCH MCHC RDW Plt Count MPV Neutrophils % Lymphocytes % Monocytes % Eosinophils % Basophils % Sodium Potassium Chloride Carbon Dioxide Anion Gap BUN Creatinine POC Glucometer 174 98 Random Glucose Calcium Active Medications Generic Name Dose Route Start Last Admin Trade Name Freq PRN Reason Stop Dose Admin Heparin Sodium (Porcine) 5,000 unit 04/09/17 06:00 04/09/17 14:52 Heparin - SQ 5,000 unit TID SANGEETHA Administration Vancomycin HCl 1,000 mg/ 250 mls @ 200 mls/hr 04/09/17 10:00 Dextrose IVPB Q12H SANGEETHA Insulin Aspart 1 vial 04/09/17 07:00 04/09/17 11:20 Novolog Vial Sliding Scale - SQ Not Given TIDAC [facility] Protocol Insulin Detemir 14 units 04/09/17 07:00 04/09/17 06:33 Levemir Vial SQ 14 units AM SANGEETHA Administration Insulin Detemir 4 units 04/09/17 22:00 Levemir Vial SQ HS SANGEETHA Lisinopril 40 mg 04/09/17 10:00 04/09/17 09:06 Prinivil PO 40 mg DAILY SANGEETHA Administration Nifedipine 60 mg 04/09/17 10:00 04/09/17 09:06 Procardia Xl - PO 60 mg DAILY SANGEETHA Administration Piperacillin Sod/Tazobactam Sod 3.375 gm 04/09/17 10:00 Zosyn 3.375gm Ivpb (Pre-Docked) IVPB Q8H-IV SANGEETHA Protocol ASSESSMENT/PLAN: 57 year-old male with a PMH of poorly controlled HTN, poorly controlled insulin dependent DM, and PAD s/p left hallux amputation and first ray resection in 2016, has been followed in the Wound Center and receiving hyperbaric therapy. Admitted for inguinal lymphadenopathy and left foot infection. Bilateral inguinal lymphadenopathy likely secondary to left foot infection Diabetic ulcer left foot s/p left hallux and first ray amputation --afebrile, no leukocytosis --continue empiric Vanc and Zosyn --ID following Hypertension - continue lisinopril and nifedipine Insulin dependent diabetes mellitus --Levemir qam and qhs --Novolog sliding scale Assessment/Plan: DVT prophylaxis: subq heparin; oob; ambulation Dispo: continues to require inpatient care. Full Code. Visit type - Emergency Visit Emergency Visit: Yes ED Registration Date: 04/08/17 Care time: The patient presented to the Emergency Department on the above date and was hospitalized for further evaluation of their emergent condition. - New Patient This patient is new to me today: Yes Date on this admission: 04/12/17 - Critical Care Critical Care patient: No
[2017-04-09] MEDS ORDERED: PIPERACILLIN/TAZOBACTAM 3.375 GM VIAL IVPB ONE (17:29)
[2017-04-09] MEDS ORDERED: DEXTROSE 5%-WATER - 50 ML IVPB ONE (17:30)
[2017-04-09] MEDS: PIPERACILLIN/TAZOB 3.375 GM 3.375 GM in DEXTROSE 5%-WATER - 50 ML IVPB SCH (17:51)
[2017-04-09] MEDS: oxyCODONE HCL 5 MG TABLET PO PRN (22:35)
[2017-04-09] MEDS: DOCUSATE SODIUM 100 MG CAPSULE (FP) PO PRN (22:35)
[2017-04-10] MEDS ORDERED: DEXTROSE 5%-WATER - 50 ML IVPB ONE ×3 (02:05→17:15)
[2017-04-10] MEDS ORDERED: PIPERACILLIN/TAZOBACTAM 3.375 GM VIAL IVPB ONE ×3 (02:05→17:14)
[2017-04-10] MEDS: PIPERACILLIN/TAZOB 3.375 GM 3.375 GM in DEXTROSE 5%-WATER - 50 ML IVPB SCH ×3 (02:18→17:21)
[2017-04-10] MEDS: HEPARIN NA (PORCINE) 5,000 UNITS/ML 1ML VIAL SQ SCH ×3 (06:23→22:22)
[2017-04-10] MEDS: INSULIN DETEMIR 100 UNITS/ML MDV SQ SCH ×2 (06:23→22:22)
[2017-04-10] MEDS: INSULIN SLIDING SCALE (NOVOLOG) 1 VIAL SQ SCH ×3 (06:24→17:20)
[2017-04-10] MEDS ORDERED: INSULIN (NOVOLOG) ASPART 100 UNITS/ML 10ML VIAL ONE ×2 (06:44→18:45)
[2017-04-10] MEDS: LISINOPRIL 20 MG TABLET (FP) PO SCH ×2 (07:40→10:54)
[2017-04-10] MEDS: NIFEdipine E.R 60 MG TABLET (UD) PO SCH ×2 (07:40→10:54)
[2017-04-10] MEDS: oxyCODONE HCL 5 MG TABLET PO PRN ×2 (07:42→19:29)
--- NOTE | 2017-04-10 12:43 | PN ---
Physical Exam: SUBJECTIVE: Patient seen and examined OBJECTIVE: Vital Signs Period Temp Pulse Resp BP Sys/Lopez Pulse Ox Last 24 Hr 98.0 F-98.6 F 80-86 16-18 134-185/75-99 98 GENERAL: The patient is awake, alert, and fully oriented, in no acute distress. LUNGS: Breath sounds equal, clear to auscultation bilaterally, no wheezes, no crackles, no accessory muscle use. HEART: Regular rate and rhythm, S1, S2 without murmur, rub or gallop. ABDOMEN: Soft, nontender, nondistended, normoactive bowel sounds, no guarding, no rebound EXTREMITIES: Left leg swelling, + calf tenderness; foot with surgical dressing c/d/i; wounds not visualized NEUROLOGICAL: Cranial nerves II through XII grossly intact. Normal speech, gait not observed. CBCD WBC 5.7 K/mm3 (4.0-10.0) 04/12/17 06:00 RBC 3.39 M/mm3 (4.00-5.60) L 04/12/17 06:00 Hgb 9.4 GM/dL (11.7-16.9) L D 04/12/17 06:00 Hct 28.3 % (35.4-49) L 04/12/17 06:00 MCV 83.6 fl (80-96) 04/12/17 06:00 MCHC 33.2 g/dl (32.0-35.9) 04/12/17 06:00 RDW 12.2 % (11.9-15.9) 04/12/17 06:00 Plt Count 280 K/MM3 (134-434) 04/12/17 06:00 MPV 6.7 fl (7.5-11.1) L 04/12/17 06:00 CMP Sodium 141 mmol/L (136-145) 04/12/17 06:00 Potassium 4.0 mmol/L (3.5-5.1) 04/12/17 06:00 Chloride 104 mmol/L (98-107) 04/12/17 06:00 Carbon Dioxide 29 mmol/L (21-32) 04/12/17 06:00 Anion Gap 8 (8-16) 04/12/17 06:00 BUN 21 mg/dL (7-18) H 04/12/17 06:00 Creatinine 0.9 mg/dL (0.7-1.3) 04/12/17 06:00 Creat Clearance w eGFR > 60 (>60) 04/12/17 06:00 Calcium 8.5 mg/dL (8.5-10.1) 04/12/17 06:00 Total Bilirubin 0.3 mg/dL (0.2-1.0) D 04/12/17 06:00 AST 16 U/L (15-37) 04/12/17 06:00 ALT 29 U/L (12-78) D 04/12/17 06:00 Alkaline Phosphatase 70 U/L (45-117) D 04/12/17 06:00 Total Protein 6.4 g/dl (6.4-8.2) 04/12/17 06:00 Albumin 2.5 g/dl (3.4-5.0) L 04/12/17 06:00 Laboratory Results - last 24 hr 04/09/17 04/09/17 04/10/17 17:32 22:34 06:22 POC Glucometer 154 170 121 04/10/17 11:35 POC Glucometer 218 Active Medications Generic Name Dose Route Start Last Admin Trade Name Freq PRN Reason Stop Dose Admin Docusate Sodium 100 mg 04/09/17 22:10 04/09/17 22:35 Colace - PO 100 mg BID PRN Administration CONSTIPATION Heparin Sodium (Porcine) 5,000 unit 04/09/17 06:00 04/10/17 06:23 Heparin - SQ 5,000 unit TID SANGEETHA Administration Piperacillin Sod/Tazobactam 50 mls @ 100 mls/hr 04/09/17 18:00 04/10/17 10:52 Sod 3.375 gm/ Dextrose IVPB 100 mls/hr Q8H-IV SANGEETHA Administration Protocol Insulin Aspart 1 vial 04/09/17 07:00 04/10/17 11:36 Novolog Vial Sliding Scale - SQ 4 units TIDAC [facility] Administration Protocol Insulin Detemir 14 units 04/09/17 07:00 04/10/17 06:23 Levemir Vial SQ 14 units AM SANGEETHA Administration Insulin Detemir 4 units 04/09/17 22:00 04/09/17 22:35 Levemir Vial SQ 4 units HS SANGEETHA Administration Lisinopril 40 mg 04/09/17 10:00 04/10/17 10:54 Prinivil PO Not Given DAILY SANGEETHA Metoprolol Tartrate 25 mg 04/10/17 12:45 Lopressor - PO BID SANGEETHA Nifedipine 60 mg 04/09/17 10:00 04/10/17 10:54 Procardia Xl - PO Not Given DAILY SANGEETHA Oxycodone HCl 5 mg 04/09/17 22:10 04/10/17 07:42 Roxicodone - PO 5 mg Q6H PRN Administration PAIN ASSESSMENT/PLAN 57 year-old male with a PMH of poorly controlled HTN, poorly controlled insulin dependent DM, and PAD s/p left hallux amputation and first ray resection in 2016, has been followed in the Wound Center and receiving hyperbaric therapy. Admitted for inguinal lymphadenopathy and left foot infection. Bilateral inguinal lymphadenopathy likely secondary to left foot infection Diabetic ulcer left foot s/p left hallux and first ray amputation --afebrile, no leukocytosis --continue empiric Zosyn --ID following Hypertension --BP elevated --start metoprolol, continue lisinopril and nifedipine Insulin dependent diabetes mellitus --Levemir qam and qhs --Novolog sliding scale Assessment/Plan: DVT prophylaxis: subq heparin; oob; ambulation Dispo: continues to require inpatient care. Full Code. Visit type - Emergency Visit Emergency Visit: Yes ED Registration Date: 04/08/17 Care time: The patient presented to the Emergency Department on the above date and was hospitalized for further evaluation of their emergent condition. - New Patient This patient is new to me today: No - Critical Care Critical Care patient: No
[2017-04-10] MEDS: METOPROLOL TARTRATE 25 MG TABLET (FP) PO SCH ×2 (14:41→22:22)
--- NOTE | 2017-04-10 14:56 | PN ---
Progress Note, Physician History of Present Illness: patient feeling much better wound still drainage - Current Medication List Current Medications: Active Medications Docusate Sodium (Colace -) 100 mg PO BID PRN PRN Reason: CONSTIPATION Last Admin: 04/09/17 22:35 Dose: 100 mg Heparin Sodium (Porcine) (Heparin -) 5,000 unit SQ TID [facility] Last Admin: 04/10/17 14:41 Dose: 5,000 unit Piperacillin Sod/Tazobactam (Sod 3.375 gm/ Dextrose) 50 mls @ 100 mls/hr IVPB Q8H-IV S[facility] PRN Reason: Protocol Last Admin: 04/10/17 10:52 Dose: 100 mls/hr Insulin Aspart (Novolog Vial Sliding Scale -) 1 vial SQ TIDAC [facility] PRN Reason: Protocol Last Admin: 04/10/17 11:36 Dose: 4 units Insulin Detemir (Levemir Vial) 14 units SQ AM [facility] Last Admin: 04/10/17 06:23 Dose: 14 units Insulin Detemir (Levemir Vial) 4 units SQ HS [facility] Last Admin: 04/09/17 22:35 Dose: 4 units Lisinopril (Prinivil) 40 mg PO DAILY [facility] Last Admin: 04/10/17 10:54 Dose: Not Given Metoprolol Tartrate (Lopressor -) 25 mg PO BID [facility] Last Admin: 04/10/17 14:41 Dose: 25 mg Nifedipine (Procardia Xl -) 60 mg PO DAILY [facility] Last Admin: 04/10/17 10:54 Dose: Not Given Oxycodone HCl (Roxicodone -) 5 mg PO Q6H PRN PRN Reason: PAIN Last Admin: 04/10/17 07:42 Dose: 5 mg - Objective Vital Signs: Vital Signs Temperature 97.3 F L 04/10/17 14:45 Pulse Rate 91 H 04/10/17 14:45 Respiratory Rate 18 04/10/17 10:00 Blood Pressure 148/81 04/10/17 14:45 O2 Sat by Pulse Oximetry (%) 99 04/10/17 09:00 Constitutional: Yes: No Distress, Calm Cardiovascular: Yes: Regular Rate and Rhythm Respiratory: Yes: Regular, CTA Bilaterally Gastrointestinal: Yes: Normal Bowel Sounds, Soft Musculoskeletal: Yes: WNL Extremities: Yes: Other Wound/Incision: Yes: Draining Neurological: Yes: Alert, Oriented Psychiatric: Yes: Alert, Oriented Labs: CBC, BMP 04/09/17 06:10 04/09/17 06:10 INR, PTT INR 1.12 (0.82-1.09) 04/08/17 15:55 Assessment/Plan Problem List - Problem (1) Enlarged lymph node Code(s): R59.9 - ENLARGED LYMPH NODES, UNSPECIFIED (2) Hypertension Code(s): I10 - ESSENTIAL (PRIMARY) HYPERTENSION Qualifiers: (3) Diabetic ulcer of left foot Code(s): E11.621 - TYPE 2 DIABETES MELLITUS WITH FOOT ULCER L97.529 - NON-PRESSURE CHRONIC ULCER OTH PRT LEFT FOOT W UNSP SEVERITY (4) Insulin dependent diabetes mellitus Code(s): E11.9 - TYPE 2 DIABETES MELLITUS WITHOUT COMPLICATIONS Z79.4 - NURSING HOME (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 OF INSULIN (5) Type 2 diabetes mellitus with diabetic neuropathy, unspecified Code(s): E11.40 - TYPE 2 DIABETES MELLITUS WITH DIABETIC NEUROPATHY, UNSP Qualifiers: (6) PAD (peripheral artery disease) Code(s): I73.9 - PERIPHERAL VASCULAR DISEASE, UNSPECIFIED (7) Normocytic anemia 8 cellulitis of the left leg cx results noted await for sensitivities ct abx rest as per the team will have to recheck the nodes id few days
[2017-04-11] MEDS ORDERED: PIPERACILLIN/TAZOBACTAM 3.375 GM VIAL IVPB ONE ×3 (00:58→18:05)
[2017-04-11] MEDS ORDERED: DEXTROSE 5%-WATER - 50 ML IVPB ONE ×3 (00:58→18:05)
[2017-04-11] MEDS: PIPERACILLIN/TAZOB 3.375 GM 3.375 GM in DEXTROSE 5%-WATER - 50 ML IVPB SCH ×3 (01:19→18:26)
[2017-04-11] MEDS: INSULIN SLIDING SCALE (NOVOLOG) 1 VIAL SQ SCH ×3 (06:06→18:21)
[2017-04-11] MEDS: HEPARIN NA (PORCINE) 5,000 UNITS/ML 1ML VIAL SQ SCH ×3 (06:06→23:16)
[2017-04-11] MEDS: INSULIN DETEMIR 100 UNITS/ML MDV SQ SCH ×2 (06:06→23:08)
[2017-04-11] MEDS: LISINOPRIL 20 MG TABLET (FP) PO SCH (10:17)
[2017-04-11] MEDS: METOPROLOL TARTRATE 50 MG TABLET (FP) PO SCH ×3 (10:18→23:01)
[2017-04-11] MEDS: NIFEdipine E.R 60 MG TABLET (UD) PO SCH (10:18)
--- NOTE | 2017-04-11 11:20 | PN ---
Physical Exam: SUBJECTIVE: Patient seen and examined at bedside. OBJECTIVE: Vital Signs Period Temp Pulse Resp BP Sys/Lopez Pulse Ox Last 24 Hr 97.3 F-98.9 F 77-91 16-18 146-178/81-99 99 GENERAL: The patient is awake, alert, and fully oriented, in no acute distress. LUNGS: Breath sounds equal, clear to auscultation bilaterally, no wheezes, no crackles, no accessory muscle use. HEART: Regular rate and rhythm, S1, S2 without murmur, rub or gallop. ABDOMEN: Soft, nontender, nondistended, normoactive bowel sounds, no guarding, no rebound. Palpable tender right inguinal lymph node; two (2) palpable tender left inguinal lymph nodes EXTREMITIES: RLE: 2+ pulses, warm, well-perfused, no edema, 2cm x 2cx x surface dry dessicated diabetic ulcer center of bottom of foot; LLE: great toe amputation, mild swelling, warm to touch, surgical wound 6cmL x 5cmW x 1cmD with minimal purulent drainage, wound bed red, no slough, no odor, wound edges dry NEUROLOGICAL: Cranial nerves II through XII grossly intact. Normal speech, gait not observed. CBCD WBC 6.3 K/mm3 (4.0-10.0) 04/09/17 06:10 RBC 3.01 M/mm3 (4.00-5.60) L 04/09/17 06:10 Hgb 8.5 GM/dL (11.7-16.9) L 04/09/17 06:10 Hct 25.4 % (35.4-49) L 04/09/17 06:10 MCV 84.3 fl (80-96) 04/09/17 06:10 MCHC 33.4 g/dl (32.0-35.9) 04/09/17 06:10 RDW 12.2 % (11.9-15.9) 04/09/17 06:10 Plt Count 275 K/MM3 (134-434) 04/09/17 06:10 MPV 7.1 fl (7.5-11.1) L 04/09/17 06:10 CMP Sodium 141 mmol/L (136-145) 04/09/17 06:10 Potassium 3.9 mmol/L (3.5-5.1) 04/09/17 06:10 Chloride 106 mmol/L (98-107) 04/09/17 06:10 Carbon Dioxide 27 mmol/L (21-32) 04/09/17 06:10 Anion Gap 8 (8-16) 04/09/17 06:10 BUN 22 mg/dL (7-18) H 04/09/17 06:10 Creatinine 0.8 mg/dL (0.7-1.3) 04/09/17 06:10 Creat Clearance w eGFR > 60 (>60) 04/08/17 15:55 Calcium 8.2 mg/dL (8.5-10.1) L 04/09/17 06:10 Total Bilirubin 0.2 mg/dL (0.2-1.0) 04/08/17 15:55 AST 18 U/L (15-37) D 04/08/17 15:55 ALT 22 U/L (12-78) D 04/08/17 15:55 Alkaline Phosphatase 92 U/L (45-117) 04/08/17 15:55 Total Protein 6.9 g/dl (6.4-8.2) 04/08/17 15:55 Albumin 2.9 g/dl (3.4-5.0) L D 04/08/17 15:55 Laboratory Results - last 24 hr 04/10/17 04/10/17 04/10/17 11:35 17:20 21:12 POC Glucometer 218 163 163 04/11/17 06:03 POC Glucometer 114 Active Medications Generic Name Dose Route Start Last Admin Trade Name Freq PRN Reason Stop Dose Admin Docusate Sodium 100 mg 04/09/17 22:10 04/09/17 22:35 Colace - PO 100 mg BID PRN Administration CONSTIPATION Heparin Sodium (Porcine) 5,000 unit 04/09/17 06:00 04/11/17 06:06 Heparin - SQ 5,000 unit TID S[facility] Administration Piperacillin Sod/Tazobactam 50 mls @ 100 mls/hr 04/09/17 18:00 04/11/17 10:17 Sod 3.375 gm/ Dextrose IVPB 100 mls/hr Q8H-IV SANGEETHA Administration Protocol Insulin Aspart 1 vial 04/09/17 07:00 04/11/17 06:06 Novolog Vial Sliding Scale - SQ Not Given TIDAC [facility] Protocol Insulin Detemir 14 units 04/09/17 07:00 04/11/17 06:06 Levemir Vial SQ 14 units AM S[facility] Administration Insulin Detemir 4 units 04/09/17 22:00 04/10/17 22:22 Levemir Vial SQ 4 units HS S[facility]ET[facility] Administration Lisinopril 40 mg 04/09/17 10:00 04/11/17 10:17 Prinivil PO 40 mg DAILY S[facility] Administration Metoprolol Tartrate 50 mg 04/11/17 08:37 04/11/17 10:18 Lopressor - PO 50 mg BID SANGEETHA Administration Nifedipine 60 mg 04/09/17 10:00 04/11/17 10:18 Procardia Xl - PO 60 mg DAILY S[facility] Administration Oxycodone HCl 5 mg 04/09/17 22:10 04/10/17 19:29 Roxicodone - PO 5 mg Q6H PRN Administration PAIN Microbiology 04/08/17 15:40 Foot - Lt Transmetatarsal Amp Site Gram Stain - Final 04/08/17 15:40 Foot - Lt Transmetatarsal Amp Site Wound Culture - Preliminary Non Lactose Fermenting Gnb Providencia Stuartii Staphylococcus Aureus Staphylococcus Coagulase Neg Streptococcus Viridans 04/08/17 15:55 Blood - Peripheral Venous Blood Culture - Preliminary NO GROWTH OBTAINED AFTER 48 HOURS, INCUBATION TO CONTINUE FOR 3 DAYS. 04/08/17 15:48 Blood - Peripheral Venous Blood Culture - Preliminary NO GROWTH OBTAINED AFTER 48 HOURS, INCUBATION TO CONTINUE FOR 3 DAYS. 04/08/17 15:55 Urine - Urine Clean Catch Urine Culture - Final NO GROWTH OBTAINED ASSESSMENT/PLAN 57 year-old male with a PMH of poorly controlled HTN, poorly controlled insulin dependent DM, and PAD s/p left hallux amputation and first ray resection in 2016, [facility] and receiving hyperbaric therapy. Admitted for inguinal lymphadenopathy and left foot infection. Bilateral inguinal lymphadenopathy likely secondary to left foot infection Polymicrobial diabetic ulcer left foot s/p left hallux and first ray amputation --afebrile, no leukocytosis --inguinal tenderness persists, will get repeat US --continue Zosyn --Santyl daily; cannot receive hyperbaric treatment while inpatient --ID following Hypertension --BP elevated --increase metoprolol, continue lisinopril and nifedipine Insulin dependent diabetes mellitus --Levemir qam and qhs --Novolog sliding scale DVT prophylaxis: subq heparin; oob; ambulation Dispo: continues to require inpatient care. Full Code. Visit type - Emergency Visit Emergency Visit: Yes ED Registration Date: 04/08/17 Care time: The patient presented to the Emergency Department on the above date and was hospitalized for further evaluation of their emergent condition. - New Patient This patient is new to me today: No - Critical Care Critical Care patient: No
[2017-04-11] MEDS ORDERED: INSULIN (NOVOLOG) ASPART 100 UNITS/ML 10ML VIAL ONE ×2 (12:20→12:25)
--- NOTE | 2017-04-11 15:45 | PN ---
Progress Note, Physician History of Present Illness: patient stable no new issues says he is feeling better - Current Medication List Current Medications: Active Medications Collagenase (Santyl -) 1 applic TP DAILY [facility] Docusate Sodium (Colace -) 100 mg PO BID PRN PRN Reason: CONSTIPATION Last Admin: 04/09/17 22:35 Dose: 100 mg Heparin Sodium (Porcine) (Heparin -) 5,000 unit SQ TID [facility] Last Admin: 04/11/17 13:19 Dose: 5,000 unit Piperacillin Sod/Tazobactam (Sod 3.375 gm/ Dextrose) 50 mls @ 100 mls/hr IVPB Q8H-IV [facility] PRN Reason: Protocol Last Admin: 04/11/17 10:17 Dose: 100 mls/hr Insulin Aspart (Novolog Vial Sliding Scale -) 1 vial SQ TIDAC [facility] PRN Reason: Protocol Last Admin: 04/11/17 12:22 Dose: 2 units Insulin Detemir (Levemir Vial) 14 units SQ AM [facility] Last Admin: 04/11/17 06:06 Dose: 14 units Insulin Detemir (Levemir Vial) 4 units SQ HS [facility] Last Admin: 04/10/17 22:22 Dose: 4 units Lisinopril (Prinivil) 40 mg PO DAILY [facility] Last Admin: 04/11/17 10:17 Dose: 40 mg Metoprolol Tartrate (Lopressor -) 50 mg PO BID [facility] Last Admin: 04/11/17 10:18 Dose: 50 mg Nifedipine (Procardia Xl -) 60 mg PO DAILY [facility] Last Admin: 04/11/17 10:18 Dose: 60 mg Oxycodone HCl (Roxicodone -) 5 mg PO Q6H PRN PRN Reason: PAIN Last Admin: 04/10/17 19:29 Dose: 5 mg - Objective Vital Signs: Vital Signs Temperature 98.8 F 04/11/17 14:35 Pulse Rate 77 04/11/17 14:35 Respiratory Rate 16 04/11/17 09:41 Blood Pressure 126/68 04/11/17 14:35 O2 Sat by Pulse Oximetry (%) 100 04/11/17 09:00 Constitutional: Yes: No Distress, Calm Neck: Yes: Supple Cardiovascular: Yes: Regular Rate and Rhythm Respiratory: Yes: Regular, CTA Bilaterally Gastrointestinal: Yes: Normal Bowel Sounds, Soft Musculoskeletal: Yes: WNL Extremities: Yes: Other Integumentary: Yes: Other Wound/Incision: Yes: Dressing Dry and Intact, Draining Neurological: Yes: Alert, Oriented Psychiatric: Yes: Alert, Oriented Labs: CBC, BMP 04/09/17 06:10 04/09/17 06:10 INR, PTT INR 1.12 (0.82-1.09) 04/08/17 15:55 Assessment/Plan Problem List - Problem (1) Enlarged lymph node Code(s): R59.9 - ENLARGED LYMPH NODES, UNSPECIFIED (2) Hypertension Code(s): I10 - ESSENTIAL (PRIMARY) HYPERTENSION Qualifiers: (3) Diabetic ulcer of left foot Code(s): E11.621 - TYPE 2 DIABETES MELLITUS WITH FOOT ULCER L97.529 - NON-PRESSURE CHRONIC ULCER OTH PRT LEFT FOOT W UNSP SEVERITY (4) Insulin dependent diabetes mellitus Code(s): E11.9 - TYPE 2 DIABETES MELLITUS WITHOUT COMPLICATIONS Z79.4 - APPLICATION SUPPORT (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 OF INSULIN (5) Type 2 diabetes mellitus with diabetic neuropathy, unspecified Code(s): E11.40 - TYPE 2 DIABETES MELLITUS WITH DIABETIC NEUROPATHY, UNSP Qualifiers: (6) PAD (peripheral artery disease) Code(s): I73.9 - PERIPHERAL VASCULAR DISEASE, UNSPECIFIED (7) Normocytic anemia 8 cellulitis of the left leg cx results noted await for sensitivities ct abx rest as per the team ultrasound of the groin to look at the nodes on friday
[2017-04-11] MEDS ORDERED: PT OWN MED DRAWER 7, Y5N ONE (18:04)
[2017-04-11] MEDS: oxyCODONE HCL 5 MG TABLET PO PRN (20:07)
[2017-04-11] MEDS ORDERED: METOPROLOL TARTRATE 50 MG TABLET (FP) PO ONE (22:42)
[2017-04-11] MEDS: DOCUSATE SODIUM 100 MG CAPSULE (FP) PO PRN (23:07)
[2017-04-12] MEDS ORDERED: PIPERACILLIN/TAZOBACTAM 3.375 GM VIAL IVPB ONE ×3 (01:12→17:03)
[2017-04-12] MEDS ORDERED: DEXTROSE 5%-WATER - 50 ML IVPB ONE ×3 (01:12→17:03)
[2017-04-12] MEDS: PIPERACILLIN/TAZOB 3.375 GM 3.375 GM in DEXTROSE 5%-WATER - 50 ML IVPB SCH ×3 (01:26→17:12)
[2017-04-12] MEDS ORDERED: hydrALAZINE HCL 10 MG TABLET PO ONE (01:33)
[2017-04-12] MEDS: HEPARIN NA (PORCINE) 5,000 UNITS/ML 1ML VIAL SQ SCH ×3 (06:37→22:47)
[2017-04-12] MEDS: INSULIN SLIDING SCALE (NOVOLOG) 1 VIAL SQ SCH ×3 (06:40→17:11)
[2017-04-12] MEDS: INSULIN DETEMIR 100 UNITS/ML MDV SQ SCH ×2 (06:40→22:47)
[2017-04-12 07:31] LABS: BASOPHIL 0.9 % (0-2.0); EOSINOPHIL 4.7 % (0-4.5); MCH 27.8 pg (25.7-33.7); MCHC 33.2 g/dl (32.0-35.9); MEAN CELL VOLUME 83.6 fl (80-96); MEAN PLT VOLUME 6.7 fl (7.5-11.1); PLATELET COUNT 280 K/MM3 (134-434); RDW 12.2 % (11.9-15.9); WHITE BLOOD COUNT 5.7 K/mm3 (4.0-10.0)
[2017-04-12 08:03] LABS: ALBUMIN 2.5 g/dl (3.4-5.0); ANION GAP 8 (8-16); BILIRUBIN,TOTAL 0.3 mg/dL (0.2-1.0); CALCIUM 8.5 mg/dL (8.5-10.1); CO2 29 mmol/L (21-32); CREATININE 0.9 mg/dL (0.7-1.3); GLUCOSE,RANDOM 126 mg/dL (74-106); MAGNESIUM 1.8 mg/dL (1.8-2.4); SGOT/AST 16 U/L (15-37); SGPT/ALT 29 U/L (12-78); TOT PROT 6.4 g/dl (6.4-8.2)
[2017-04-12 08:04] LABS: ALK PHOS 70 U/L (45-117)
[2017-04-12] MEDS ORDERED: PT OWN MED DRAWER 7, Y5N ONE (09:09)
[2017-04-12] MEDS: METOPROLOL TARTRATE 50 MG TABLET (FP) PO SCH (09:11)
[2017-04-12] MEDS: LISINOPRIL 20 MG TABLET (FP) PO SCH (09:11)
[2017-04-12] MEDS: NIFEdipine E.R 60 MG TABLET (UD) PO SCH (09:11)
[2017-04-12] MEDS: COLLAGENASE CLOSTRIDIUM HIST. 30 GRAMS TUBE TP SCH (10:24)
[2017-04-12] MEDS: oxyCODONE HCL 5 MG TABLET PO PRN (10:34)
--- NOTE | 2017-04-12 10:57 | PN ---
Physical Exam: SUBJECTIVE: Patient seen and examined OBJECTIVE: Vital Signs Period Temp Pulse Resp BP Sys/Lopez Pulse Ox Last 24 Hr 98.3 F-98.8 F 77-85 16-18 126-189/68-101 99 GENERAL: The patient is awake, alert, and fully oriented, in no acute distress. LUNGS: Breath sounds equal, clear to auscultation bilaterally, no wheezes, no crackles, no accessory muscle use. HEART: Regular rate and rhythm, S1, S2 without murmur, rub or gallop. ABDOMEN: Soft, nontender, nondistended, normoactive bowel sounds, no guarding, no rebound. Palpable tender right inguinal lymph node; two (2) palpable tender left inguinal lymph nodes EXTREMITIES: RLE: 2+ pulses, warm, well-perfused, no edema, 2cm x 2cx x surface dry dessicated diabetic ulcer center of bottom of foot; LLE: great toe amputation, mild swelling, warm to touch, surgical wound 6cmL x 5cmW x 1cmD with minimal purulent drainage, wound bed red, no slough, no odor, wound edges dry NEUROLOGICAL: Cranial nerves II through XII grossly intact. Normal speech, gait not observed. Laboratory Results - last 24 hr 04/11/17 04/11/17 04/11/17 12:00 17:33 23:05 WBC RBC Hgb Hct MCV MCH MCHC RDW Plt Count MPV Neutrophils % Lymphocytes % Monocytes % Eosinophils % Basophils % Sodium Potassium Chloride Carbon Dioxide Anion Gap BUN Creatinine Creat Clearance w eGFR POC Glucometer 174 129 169 Random Glucose Calcium Magnesium Total Bilirubin AST ALT Alkaline Phosphatase Total Protein Albumin 04/12/17 04/12/17 04/12/17 06:00 06:00 06:38 WBC 5.7 RBC 3.39 L Hgb 9.4 L D Hct 28.3 L MCV 83.6 MCH 27.8 MCHC 33.2 RDW 12.2 Plt Count 280 MPV 6.7 L Neutrophils % 45.0 Lymphocytes % 39.3 D Monocytes % 10.1 Eosinophils % 4.7 H Basophils % 0.9 Sodium 141 Potassium 4.0 Chloride 104 Carbon Dioxide 29 Anion Gap 8 BUN 21 H Creatinine 0.9 Creat Clearance w eGFR > 60 POC Glucometer 135 Random Glucose 126 H Calcium 8.5 Magnesium 1.8 Total Bilirubin 0.3 D AST 16 ALT 29 D Alkaline Phosphatase 70 D Total Protein 6.4 Albumin 2.5 L Current Medications Generic Name Dose Route Start Last Admin Trade Name Elizabeth PRN Reason Stop Dose Admin Collagenase 1 applic 04/12/17 10:00 04/12/17 10:24 Santyl - TP 1 applic DAILY [facility] Administration Docusate Sodium 100 mg 04/09/17 22:10 04/11/17 23:07 Colace - PO 100 mg BID PRN Administration CONSTIPATION Heparin Sodium (Porcine) 5,000 unit 04/09/17 06:00 04/12/17 14:07 Heparin - SQ 5,000 unit TID [facility] Administration Piperacillin Sod/Tazobactam 50 mls @ 100 mls/hr 04/09/17 18:00 04/12/17 17:12 Sod 3.375 gm/ Dextrose IVPB 100 mls/hr Q8H-IV [facility] Administration Protocol Clindamycin Phosphate 50 mls @ 100 mls/hr 04/12/17 11:00 04/12/17 17:47 Cleocin 600 Mg Premix Ivpb - IVPB 100 mls/hr Q8H-IV S[facility] Administration Insulin Aspart 1 vial 04/09/17 07:00 04/12/17 17:11 Novolog Vial Sliding Scale - SQ Not Given TIDAC [facility] Protocol Insulin Detemir 14 units 04/09/17 07:00 04/12/17 06:40 Levemir Vial SQ 14 units AM [facility] Administration Insulin Detemir 4 units 04/09/17 22:00 04/11/17 23:08 Levemir Vial SQ 4 units HS [facility] Administration Lisinopril 40 mg 04/09/17 10:00 04/12/17 09:11 Prinivil PO 40 mg DAILY [facility] Administration Metoprolol Succinate 50 mg 04/12/17 12:00 04/12/17 12:13 Toprol Xl - PO 50 mg BID [facility] Administration Nifedipine 60 mg 04/09/17 10:00 04/12/17 09:11 Procardia Xl - PO 60 mg DAILY [facility] Administration Oxycodone HCl 5 mg 04/09/17 22:10 04/12/17 10:34 Roxicodone - PO 5 mg Q6H PRN Administration PAIN Microbiology 04/08/17 15:55 Blood - Peripheral Venous Blood Culture - Preliminary NO GROWTH OBTAINED AFTER 96 HOURS, INCUBATION TO CONTINUE FOR 1 DAYS. 04/08/17 15:48 Blood - Peripheral Venous Blood Culture - Preliminary NO GROWTH OBTAINED AFTER 96 HOURS, INCUBATION TO CONTINUE FOR 1 DAYS. 04/08/17 15:40 Foot - Lt Transmetatarsal Amp Site Gram Stain - Final 04/08/17 15:40 Foot - Lt Transmetatarsal Amp Site Wound Culture - Final Escherichia Coli Providencia Stuartii Staphylococcus Aureus Staphylococcus Coagulase Neg Streptococcus Viridans 04/08/17 15:55 Urine - Urine Clean Catch Urine Culture - Final NO GROWTH OBTAINED ASSESSMENT/PLAN: 57 year-old male with a PMH of poorly controlled HTN, poorly controlled insulin dependent DM, and PAD s/p left hallux amputation and first ray resection in 2016, has been followed in [facility] and receiving hyperbaric therapy. Admitted for inguinal lymphadenopathy and left foot infection. Bilateral inguinal lymphadenopathy likely secondary to left foot infection Polymicrobial diabetic ulcer left foot s/p left hallux and first ray amputation --afebrile, no leukocytosis --US: bilateral lymph nodes, non-specific, no significant change --continue Zosyn, added Clinda --Santyl daily --ID following Hypertension --BP persistently elevated --switched metoprolol to Toprol XL BID; continue lisinopril and nifedipine Insulin dependent diabetes mellitus --Levemir qam and qhs --Novolog sliding scale DVT prophylaxis: subq heparin; oob; ambulation Dispo: continues to require inpatient care. Full Code. Visit type - Emergency Visit Emergency Visit: Yes ED Registration Date: 04/08/17 Care time: The patient presented to the Emergency Department on the above date and was hospitalized for further evaluation of their emergent condition. - New Patient This patient is new to me today: No - Critical Care Critical Care patient: No
[2017-04-12] MEDS ORDERED: INSULIN (NOVOLOG) ASPART 100 UNITS/ML 10ML VIAL ONE (11:32)
[2017-04-12] MEDS: CLINDAMYCIN 600MG PREMIX IVPB 50 ML IVPB SCH ×2 (11:36→17:47)
[2017-04-12] MEDS: METOPROLOL SUCCINATE 50 MG TAB.SR.24H (FP) PO SCH ×2 (12:13→22:47)
--- NOTE | 2017-04-12 13:52 | PN ---
Progress Note, Physician History of Present Illness: patient stable no new issues says he is feeling better - Current Medication List Current Medications: Active Medications Collagenase (Santyl -) 1 applic TP DAILY [facility] Last Admin: 04/12/17 10:24 Dose: 1 applic Docusate Sodium (Colace -) 100 mg PO BID PRN PRN Reason: CONSTIPATION Last Admin: 04/11/17 23:07 Dose: 100 mg Heparin Sodium (Porcine) (Heparin -) 5,000 unit SQ TID [facility] Last Admin: 04/12/17 06:37 Dose: 5,000 unit Piperacillin Sod/Tazobactam (Sod 3.375 gm/ Dextrose) 50 mls @ 100 mls/hr IVPB Q8H-IV [facility] PRN Reason: Protocol Last Admin: 04/12/17 09:11 Dose: 100 mls/hr Clindamycin Phosphate (Cleocin 600 Mg Premix Ivpb -) 50 mls @ 100 mls/hr IVPB Q8H-IV [facility] Last Admin: 04/12/17 11:36 Dose: 100 mls/hr Insulin Aspart (Novolog Vial Sliding Scale -) 1 vial SQ TIDAC [facility] PRN Reason: Protocol Last Admin: 04/12/17 11:36 Dose: 2 units Insulin Detemir (Levemir Vial) 14 units SQ AM [facility] Last Admin: 04/12/17 06:40 Dose: 14 units Insulin Detemir (Levemir Vial) 4 units SQ HS [facility] Last Admin: 04/11/17 23:08 Dose: 4 units Lisinopril (Prinivil) 40 mg PO DAILY [facility] Last Admin: 04/12/17 09:11 Dose: 40 mg Metoprolol Succinate (Toprol Xl -) 50 mg PO BID [facility] Last Admin: 04/12/17 12:13 Dose: 50 mg Nifedipine (Procardia Xl -) 60 mg PO DAILY [facility] Last Admin: 04/12/17 09:11 Dose: 60 mg Oxycodone HCl (Roxicodone -) 5 mg PO Q6H PRN PRN Reason: PAIN Last Admin: 04/12/17 10:34 Dose: 5 mg - Objective Vital Signs: Vital Signs Temperature 98.8 F 04/12/17 08:51 Pulse Rate 81 04/12/17 10:24 Respiratory Rate 16 04/12/17 08:51 Blood Pressure 169/93 04/12/17 10:24 O2 Sat by Pulse Oximetry (%) 99 04/11/17 22:00 Constitutional: Yes: No Distress, Calm Cardiovascular: Yes: Regular Rate and Rhythm Respiratory: Yes: Regular, CTA Bilaterally Gastrointestinal: Yes: Normal Bowel Sounds, Soft Musculoskeletal: Yes: Other (swelling is better) Neurological: Yes: Alert, Oriented Psychiatric: Yes: Alert Labs: CBC, BMP 04/12/17 06:00 04/12/17 06:00 INR, PTT INR 1.12 (0.82-1.09) 04/08/17 15:55 Assessment/Plan Problem List - Problem (1) Enlarged lymph node Code(s): R59.9 - ENLARGED LYMPH NODES, UNSPECIFIED (2) Hypertension Code(s): I10 - ESSENTIAL (PRIMARY) HYPERTENSION Qualifiers: (3) Diabetic ulcer of left foot Code(s): E11.621 - TYPE 2 DIABETES MELLITUS WITH FOOT ULCER L97.529 - NON-PRESSURE CHRONIC ULCER OTH PRT LEFT FOOT W UNSP SEVERITY (4) Insulin dependent diabetes mellitus Code(s): E11.9 - TYPE 2 DIABETES MELLITUS WITHOUT COMPLICATIONS Z79.4 - [facility] (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 OF INSULIN (5) Type 2 diabetes mellitus with diabetic neuropathy, unspecified Code(s): E11.40 - TYPE 2 DIABETES MELLITUS WITH DIABETIC NEUROPATHY, UNSP Qualifiers: (6) PAD (peripheral artery disease) Code(s): I73.9 - PERIPHERAL VASCULAR DISEASE, UNSPECIFIED (7) Normocytic anemia 8 cellulitis of the left leg cx results noted conitnue current mgmt ct abx rest as per the team ultrasound of the groin to look at the nodes on friday
[2017-04-12] MEDS ORDERED: oxyCODONE HCL 5 MG TABLET PO PRN (23:01)
[2017-04-13] MEDS ORDERED: PIPERACILLIN/TAZOBACTAM 3.375 GM VIAL IVPB ONE ×3 (01:01→18:03)
[2017-04-13] MEDS ORDERED: DEXTROSE 5%-WATER - 50 ML IVPB ONE ×3 (01:01→18:03)
[2017-04-13] MEDS: CLINDAMYCIN 600MG PREMIX IVPB 50 ML IVPB SCH ×3 (01:29→18:04)
[2017-04-13] MEDS: PIPERACILLIN/TAZOB 3.375 GM 3.375 GM in DEXTROSE 5%-WATER - 50 ML IVPB SCH ×3 (01:29→18:04)
[2017-04-13] MEDS: HEPARIN NA (PORCINE) 5,000 UNITS/ML 1ML VIAL SQ SCH ×3 (06:26→21:47)
[2017-04-13] MEDS: INSULIN SLIDING SCALE (NOVOLOG) 1 VIAL SQ SCH ×3 (06:26→16:49)
[2017-04-13] MEDS: INSULIN DETEMIR 100 UNITS/ML MDV SQ SCH ×2 (07:04→21:47)
[2017-04-13] MEDS: METOPROLOL SUCCINATE 50 MG TAB.SR.24H (FP) PO SCH ×2 (10:00→21:47)
[2017-04-13] MEDS: LISINOPRIL 20 MG TABLET (FP) PO SCH (10:00)
[2017-04-13] MEDS: NIFEdipine E.R 60 MG TABLET (UD) PO SCH (10:00)
[2017-04-13] MEDS: COLLAGENASE CLOSTRIDIUM HIST. 30 GRAMS TUBE TP SCH (12:01)
--- NOTE | 2017-04-13 14:31 | PN ---
Progress Note, Physician History of Present Illness: patient doing well leg has continued to improve - Current Medication List Current Medications: Active Medications Collagenase (Santyl -) 1 applic TP DAILY [facility] Last Admin: 04/13/17 12:01 Dose: 1 applic Docusate Sodium (Colace -) 100 mg PO BID PRN PRN Reason: CONSTIPATION Last Admin: 04/11/17 23:07 Dose: 100 mg Heparin Sodium (Porcine) (Heparin -) 5,000 unit SQ TID [facility] Last Admin: 04/13/17 06:26 Dose: 5,000 unit Piperacillin Sod/Tazobactam (Sod 3.375 gm/ Dextrose) 50 mls @ 100 mls/hr IVPB Q8H-IV [facility] PRN Reason: Protocol Last Admin: 04/13/17 10:01 Dose: 100 mls/hr Clindamycin Phosphate (Cleocin 600 Mg Premix Ivpb -) 50 mls @ 100 mls/hr IVPB Q8H-IV [facility] Last Admin: 04/13/17 10:00 Dose: 100 mls/hr Insulin Aspart (Novolog Vial Sliding Scale -) 1 vial SQ TIDAC [facility] PRN Reason: Protocol Last Admin: 04/13/17 12:00 Dose: 4 units Insulin Detemir (Levemir Vial) 14 units SQ AM [facility] Last Admin: 04/13/17 07:04 Dose: 14 units Insulin Detemir (Levemir Vial) 4 units SQ HS [facility] Last Admin: 04/12/17 22:47 Dose: 4 units Lisinopril (Prinivil) 40 mg PO DAILY [facility] Last Admin: 04/13/17 10:00 Dose: 40 mg Metoprolol Succinate (Toprol Xl -) 50 mg PO BID [facility] Last Admin: 04/13/17 10:00 Dose: 50 mg Nifedipine (Procardia Xl -) 60 mg PO DAILY [facility] Last Admin: 04/13/17 10:00 Dose: 60 mg - Objective Vital Signs: Vital Signs Temperature 98.0 F 04/13/17 09:25 Pulse Rate 88 04/13/17 09:25 Respiratory Rate 20 04/13/17 09:25 Blood Pressure 150/80 04/13/17 09:25 O2 Sat by Pulse Oximetry (%) 99 04/13/17 09:00 Constitutional: Yes: No Distress, Calm Cardiovascular: Yes: Regular Rate and Rhythm Respiratory: Yes: Regular, CTA Bilaterally Gastrointestinal: Yes: Normal Bowel Sounds, Soft Musculoskeletal: Yes: Other Extremities: Yes: Other Wound/Incision: Yes: Dressing Dry and Intact Neurological: Yes: Alert, Oriented Psychiatric: Yes: Alert, Oriented Labs: CBC, BMP 04/12/17 06:00 04/12/17 06:00 INR, PTT INR 1.12 (0.82-1.09) 04/08/17 15:55 Assessment/Plan Problem List - Problem (1) Enlarged lymph node Code(s): R59.9 - ENLARGED LYMPH NODES, UNSPECIFIED (2) Hypertension Code(s): I10 - ESSENTIAL (PRIMARY) HYPERTENSION Qualifiers: (3) Diabetic ulcer of left foot Code(s): E11.621 - TYPE 2 DIABETES MELLITUS WITH FOOT ULCER L97.529 - NON-PRESSURE CHRONIC ULCER OTH PRT LEFT FOOT W UNSP SEVERITY (4) Insulin dependent diabetes mellitus Code(s): E11.9 - TYPE 2 DIABETES MELLITUS WITHOUT COMPLICATIONS Z79.4 - [facility] (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 OF INSULIN (5) Type 2 diabetes mellitus with diabetic neuropathy, unspecified Code(s): E11.40 - TYPE 2 DIABETES MELLITUS WITH DIABETIC NEUROPATHY, UNSP Qualifiers: (6) PAD (peripheral artery disease) Code(s): I73.9 - PERIPHERAL VASCULAR DISEASE, UNSPECIFIED (7) Normocytic anemia 8 cellulitis of the left leg i have looked at the repeat u/s of the lymph nodes,the lymphnodes have not decreased in size,there is no decrease in size since he came into the hospital after treatment with abx plan continue abx biopsy of the lymph nodes with complete work up once we have results in hand then we will decide the further treatment also looked at the sensitivites back now will make a decision if it is feasible to switch to oral abx patient will need couple of days of abx
[2017-04-13] MEDS: oxyCODONE HCL 5 MG TABLET PO PRN (15:42)
--- NOTE | 2017-04-13 16:03 | PN ---
Physical Exam: SUBJECTIVE: Patient seen and examined OBJECTIVE: Vital Signs Period Temp Pulse Resp BP Sys/Lopez Pulse Ox Last 24 Hr 97.5 F-98.6 F 77-88 18-20 132-158/73-95 99-99 GENERAL: The patient is awake, alert, and fully oriented, in no acute distress. LUNGS: Breath sounds equal, clear to auscultation bilaterally, no wheezes, no crackles, no accessory muscle use. HEART: Regular rate and rhythm, S1, S2 without murmur, rub or gallop. ABDOMEN: Soft, nontender, nondistended, normoactive bowel sounds, no guarding, no rebound. Palpable tender right inguinal lymph node; two (2) palpable tender left inguinal lymph nodes EXTREMITIES: RLE wound not visualized; dressing c/d/i NEUROLOGICAL: Cranial nerves II through XII grossly intact. Normal speech, gait not observed. CBCD WBC 5.7 K/mm3 (4.0-10.0) 04/12/17 06:00 RBC 3.39 M/mm3 (4.00-5.60) L 04/12/17 06:00 Hgb 9.4 GM/dL (11.7-16.9) L D 04/12/17 06:00 Hct 28.3 % (35.4-49) L 04/12/17 06:00 MCV 83.6 fl (80-96) 04/12/17 06:00 MCHC 33.2 g/dl (32.0-35.9) 04/12/17 06:00 RDW 12.2 % (11.9-15.9) 04/12/17 06:00 Plt Count 280 K/MM3 (134-434) 04/12/17 06:00 MPV 6.7 fl (7.5-11.1) L 04/12/17 06:00 CMP Sodium 141 mmol/L (136-145) 04/12/17 06:00 Potassium 4.0 mmol/L (3.5-5.1) 04/12/17 06:00 Chloride 104 mmol/L (98-107) 04/12/17 06:00 Carbon Dioxide 29 mmol/L (21-32) 04/12/17 06:00 Anion Gap 8 (8-16) 04/12/17 06:00 BUN 21 mg/dL (7-18) H 04/12/17 06:00 Creatinine 0.9 mg/dL (0.7-1.3) 04/12/17 06:00 Creat Clearance w eGFR > 60 (>60) 04/12/17 06:00 Calcium 8.5 mg/dL (8.5-10.1) 04/12/17 06:00 Total Bilirubin 0.3 mg/dL (0.2-1.0) D 04/12/17 06:00 AST 16 U/L (15-37) 04/12/17 06:00 ALT 29 U/L (12-78) D 04/12/17 06:00 Alkaline Phosphatase 70 U/L (45-117) D 04/12/17 06:00 Total Protein 6.4 g/dl (6.4-8.2) 04/12/17 06:00 Albumin 2.5 g/dl (3.4-5.0) L 04/12/17 06:00 Laboratory Results - last 24 hr 04/12/17 04/12/17 04/13/17 17:10 22:45 05:52 POC Glucometer 129 191 141 04/13/17 11:05 POC Glucometer 244 Active Medications Generic Name Dose Route Start Last Admin Trade Name Freq PRN Reason Stop Dose Admin Collagenase 1 applic 04/12/17 10:00 04/13/17 12:01 Santyl - TP 1 applic DAILY SANGEETHA Administration Docusate Sodium 100 mg 04/09/17 22:10 04/11/17 23:07 Colace - PO 100 mg BID PRN Administration CONSTIPATION Heparin Sodium (Porcine) 5,000 unit 04/09/17 06:00 04/13/17 15:28 Heparin - SQ 5,000 unit TID SANGEETHA Administration Piperacillin Sod/Tazobactam 50 mls @ 100 mls/hr 04/09/17 18:00 04/13/17 10:01 Sod 3.375 gm/ Dextrose IVPB 100 mls/hr Q8H-IV SANGEETHA Administration Protocol Clindamycin Phosphate 50 mls @ 100 mls/hr 04/12/17 11:00 04/13/17 10:00 Cleocin 600 Mg Premix Ivpb - IVPB 100 mls/hr Q8H-IV SANGEETHA Administration Insulin Aspart 1 vial 04/09/17 07:00 04/13/17 12:00 Novolog Vial Sliding Scale - SQ 4 units TIDAC SANGEETHA Administration Protocol Insulin Detemir 14 units 04/09/17 07:00 04/13/17 07:04 Levemir Vial SQ 14 units AM SANGEETHA Administration Insulin Detemir 4 units 04/09/17 22:00 04/12/17 22:47 Levemir Vial SQ 4 units HS SANGEETHA Administration Lisinopril 40 mg 04/09/17 10:00 04/13/17 10:00 Prinivil PO 40 mg DAILY SANGEETHA Administration Metoprolol Succinate 50 mg 04/12/17 12:00 04/13/17 10:00 Toprol Xl - PO 50 mg BID SANGEETHA Administration Nifedipine 60 mg 04/09/17 10:00 04/13/17 10:00 Procardia Xl - PO 60 mg DAILY SANGEETHA Administration Oxycodone HCl 5 mg 04/13/17 15:23 04/13/17 15:42 Roxicodone - PO 5 mg Q12H PRN Administration PAIN ASSESSMENT/PLAN 57 year-old male with a PMH of poorly controlled HTN, poorly controlled insulin dependent DM, and PAD s/p left hallux amputation and first ray resection in 2016, has been followed in the [facility] and receiving hyperbaric therapy. Admitted for inguinal lymphadenopathy and left foot infection. Bilateral inguinal lymphadenopathy likely secondary to left foot infection Polymicrobial diabetic ulcer left foot s/p left hallux and first ray amputation --afebrile, no leukocytosis --US: bilateral lymph nodes, non-specific, no significant change --continue Zosyn, added Clinda --Santyl daily --ID following Hypertension --BP persistently elevated --switched metoprolol to Toprol XL BID; continue lisinopril and nifedipine Insulin dependent diabetes mellitus --Levemir qam and qhs --Novolog sliding scale DVT prophylaxis: subq heparin; oob; ambulation Dispo: continues to require inpatient care. Full Code. Visit type - Emergency Visit Emergency Visit: Yes ED Registration Date: 04/08/17 Care time: The patient presented to the Emergency Department on the above date and was hospitalized for further evaluation of their emergent condition. - New Patient This patient is new to me today: No - Critical Care Critical Care patient: No
[2017-04-14] MEDS ORDERED: PIPERACILLIN/TAZOBACTAM 3.375 GM VIAL IVPB ONE ×3 (01:10→17:29)
[2017-04-14] MEDS ORDERED: DEXTROSE 5%-WATER - 50 ML IVPB ONE ×3 (01:10→17:29)
[2017-04-14] MEDS: PIPERACILLIN/TAZOB 3.375 GM 3.375 GM in DEXTROSE 5%-WATER - 50 ML IVPB SCH ×3 (01:34→17:53)
[2017-04-14] MEDS: CLINDAMYCIN 600MG PREMIX IVPB 50 ML IVPB SCH ×3 (01:34→17:00)
[2017-04-14] MEDS: HEPARIN NA (PORCINE) 5,000 UNITS/ML 1ML VIAL SQ SCH ×3 (06:12→21:28)
[2017-04-14] MEDS: INSULIN DETEMIR 100 UNITS/ML MDV SQ SCH ×2 (06:32→21:28)
[2017-04-14] MEDS: INSULIN SLIDING SCALE (NOVOLOG) 1 VIAL SQ SCH ×3 (06:33→17:02)
[2017-04-14 07:05] LABS: BASOPHIL 1.1 % (0-2.0); EOSINOPHIL 5.5 % (0-4.5); MCH 28.4 pg (25.7-33.7); MCHC 33.5 g/dl (32.0-35.9); MEAN CELL VOLUME 84.5 fl (80-96); MEAN PLT VOLUME 7.3 fl (7.5-11.1); NEUTROPHILS 43.5 % (42.8-82.8); PLATELET COUNT 318 K/MM3 (134-434); RDW 12.7 % (11.9-15.9); WHITE BLOOD COUNT 5.4 K/mm3 (4.0-10.0)
--- NOTE | 2017-04-14 08:58 | PN ---
Physical Exam: SUBJECTIVE: Patient seen and examined at the bedside. States he had some pain overnight on left foot which was relieved with pain medications. OBJECTIVE: Patient will need a surgical boot for left lower ext. Vital Signs Period Temp Pulse Resp BP Sys/Lopez Pulse Ox Last 24 Hr 97.5 F-98.5 F 75-88 20-20 132-162/80-93 98-99 GENERAL: The patient is awake, alert, and fully oriented, in no acute distress. LUNGS: Breath sounds equal, clear to auscultation bilaterally, no wheezes, no crackles, no accessory muscle use. HEART: Regular rate and rhythm, S1, S2 without murmur, rub or gallop. ABDOMEN: Soft, nontender, nondistended, normoactive bowel sounds, no guarding, no rebound. EXTREMITIES: Left lower ext wound with c/d/i dressing. Wound not visualized. + warmth on left lower e NEUROLOGICAL: Normal speech, gait not observed. Laboratory Results - last 24 hr 04/13/17 04/13/17 04/13/17 11:05 16:33 21:46 WBC RBC Hgb Hct MCV MCH MCHC RDW Plt Count MPV Neutrophils % Lymphocytes % Monocytes % Eosinophils % Basophils % POC Glucometer 244 121 221 04/14/17 04/14/17 06:27 06:40 WBC 5.4 RBC 3.62 L Hgb 10.3 L Hct 30.6 L MCV 84.5 MCH 28.4 MCHC 33.5 RDW 12.7 Plt Count 318 MPV 7.3 L Neutrophils % 43.5 Lymphocytes % 42.0 H Monocytes % 7.9 Eosinophils % 5.5 H Basophils % 1.1 POC Glucometer 127 Active Medications Generic Name Dose Route Start Last Admin Trade Name Freq PRN Reason Stop Dose Admin Collagenase 1 applic 04/12/17 10:00 04/13/17 12:01 Santyl - TP 1 applic DAILY SANGEETHA Administration Docusate Sodium 100 mg 04/09/17 22:10 04/11/17 23:07 Colace - PO 100 mg BID PRN Administration CONSTIPATION Heparin Sodium (Porcine) 5,000 unit 04/09/17 06:00 04/14/17 06:12 Heparin - SQ 5,000 unit TID SANGEETHA Administration Piperacillin Sod/Tazobactam 50 mls @ 100 mls/hr 04/09/17 18:00 04/14/17 01:34 Sod 3.375 gm/ Dextrose IVPB 100 mls/hr Q8H-IV SANGEETHA Administration Protocol Clindamycin Phosphate 50 mls @ 100 mls/hr 04/12/17 11:00 04/14/17 01:34 Cleocin 600 Mg Premix Ivpb - IVPB 100 mls/hr Q8H-IV SANGEETHA Administration Insulin Aspart 1 vial 04/09/17 07:00 04/14/17 06:33 Novolog Vial Sliding Scale - SQ Not Given TIDAC [facility] Protocol Insulin Detemir 14 units 04/09/17 07:00 04/14/17 06:32 Levemir Vial SQ 14 units AM SANGEETHA Administration Insulin Detemir 4 units 04/09/17 22:00 04/13/17 21:47 Levemir Vial SQ 4 units HS SANGEETHA Administration Lisinopril 40 mg 04/09/17 10:00 04/13/17 10:00 Prinivil PO 40 mg DAILY SANGEETHA Administration Metoprolol Succinate 50 mg 04/12/17 12:00 04/13/17 21:47 Toprol Xl - PO 50 mg BID SANGEETHA Administration Nifedipine 60 mg 04/09/17 10:00 04/13/17 10:00 Procardia Xl - PO 60 mg DAILY SANGEETHA Administration Oxycodone HCl 5 mg 04/13/17 15:23 04/13/17 15:42 Roxicodone - PO 5 mg Q12H PRN Administration PAIN ASSESSMENT/PLAN: Patient is a 57 year-old male with a past medical history of poorly controlled HTN, poorly controlled insulin dependent DM, and PAD s/p left hallux amputation with resection. He is being followed in the wound care center and receives hyperbaric therapy. He was admitted on 04/08/2107 for inguinal lymphadenopathy and left foot infection. ID: Left foot cellulitis/Infection, acute on chronic A/P: Remains afebrile, WBC stable On Zosyn and Clindamycin On daily Santyl for wound care ID following Vascular consulted Vascular: Bilateral inguinal lymphadenopathy Unclear etiology, but may be due to chronic infection WBC stable, afebrile On Zosyn and clindamycin Cardiology: Hypertension - controlled A/P: On Toprol BID, Lisinopril and Nifedipine Monitor BP Endocrine: Diabetes mellitus, chronic A/P: On Levemir BID, Novolog sliding scale F.E.N. Fluids: tolerating PO Electrolytes: monitor Nutrition: diabetic diet Prophylaxis: DVT: Heparin TID GI: deferred Disposition: continues to require inpatient care. Full Code.
[2017-04-14] MEDS: LISINOPRIL 20 MG TABLET (FP) PO SCH (09:38)
[2017-04-14] MEDS: METOPROLOL SUCCINATE 50 MG TAB.SR.24H (FP) PO SCH ×2 (09:39→21:28)
[2017-04-14] MEDS: NIFEdipine E.R 60 MG TABLET (UD) PO SCH (09:39)
[2017-04-14 10:13] LABS: ALBUMIN 2.8 g/dl (3.4-5.0); ANION GAP 7 (8-16); CALCIUM 8.9 mg/dL (8.5-10.1); CO2 27 mmol/L (21-32); GLUCOSE,RANDOM 116 mg/dL (74-106)
[2017-04-14 10:16] LABS: ALK PHOS 73 U/L (45-117); BILIRUBIN,TOTAL 0.3 mg/dL (0.2-1.0); SGOT/AST 15 U/L (15-37); SGPT/ALT 30 U/L (12-78)
[2017-04-14] MEDS: COLLAGENASE CLOSTRIDIUM HIST. 30 GRAMS TUBE TP SCH (16:18)
[2017-04-14] MEDS: oxyCODONE HCL 5 MG TABLET PO PRN (16:21)
--- NOTE | 2017-04-14 19:41 | PN ---
Progress Note, Physician History of Present Illness: patient is doing well no issues leg has improved a lot - Current Medication List Current Medications: Active Medications Collagenase (Santyl -) 1 applic TP DAILY [facility] Last Admin: 04/14/17 16:18 Dose: 1 applic Docusate Sodium (Colace -) 100 mg PO BID PRN PRN Reason: CONSTIPATION Last Admin: 04/11/17 23:07 Dose: 100 mg Heparin Sodium (Porcine) (Heparin -) 5,000 unit SQ TID [facility] Last Admin: 04/14/17 14:44 Dose: 5,000 unit Piperacillin Sod/Tazobactam (Sod 3.375 gm/ Dextrose) 50 mls @ 100 mls/hr IVPB Q8H-IV SANGEETHA PRN Reason: Protocol Last Admin: 04/14/17 17:53 Dose: 100 mls/hr Insulin Aspart (Novolog Vial Sliding Scale -) 1 vial SQ TIDAC [facility] PRN Reason: Protocol Last Admin: 04/14/17 17:02 Dose: Not Given Insulin Detemir (Levemir Vial) 14 units SQ AM [facility] Last Admin: 04/14/17 06:32 Dose: 14 units Insulin Detemir (Levemir Vial) 4 units SQ HS [facility] Last Admin: 04/13/17 21:47 Dose: 4 units Lisinopril (Prinivil) 40 mg PO DAILY [facility] Last Admin: 04/14/17 09:38 Dose: 40 mg Metoprolol Succinate (Toprol Xl -) 50 mg PO BID [facility] Last Admin: 04/14/17 09:39 Dose: 50 mg Nifedipine (Procardia Xl -) 60 mg PO DAILY [facility] Last Admin: 04/14/17 09:39 Dose: 60 mg Oxycodone HCl (Roxicodone -) 5 mg PO Q12H PRN PRN Reason: PAIN Last Admin: 04/14/17 16:21 Dose: 5 mg - Objective Vital Signs: Vital Signs Temperature 98.4 F 04/14/17 14:43 Pulse Rate 83 04/14/17 14:43 Respiratory Rate 20 04/14/17 14:43 Blood Pressure 135/83 04/14/17 14:43 O2 Sat by Pulse Oximetry (%) 98 04/14/17 09:00 Constitutional: Yes: No Distress, Calm Cardiovascular: Yes: Regular Rate and Rhythm Respiratory: Yes: Regular, CTA Bilaterally Gastrointestinal: Yes: Normal Bowel Sounds, Soft Musculoskeletal: Yes: Other Extremities: Yes: Other Wound/Incision: Yes: Dressing Dry and Intact Neurological: Yes: Alert, Oriented Psychiatric: Yes: Alert Labs: CBC, BMP 04/14/17 06:40 04/14/17 06:40 INR, PTT INR 1.12 (0.82-1.09) 04/08/17 15:55 Assessment/Plan Problem List - Problem (1) Enlarged lymph node Code(s): R59.9 - ENLARGED LYMPH NODES, UNSPECIFIED (2) Hypertension Code(s): I10 - ESSENTIAL (PRIMARY) HYPERTENSION Qualifiers: (3) Diabetic ulcer of left foot Code(s): E11.621 - TYPE 2 DIABETES MELLITUS WITH FOOT ULCER L97.529 - NON-PRESSURE CHRONIC ULCER OTH PRT LEFT FOOT W UNSP SEVERITY (4) Insulin dependent diabetes mellitus Code(s): E11.9 - TYPE 2 DIABETES MELLITUS WITHOUT COMPLICATIONS Z79.4 - LONGTERM (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 OF INSULIN (5) Type 2 diabetes mellitus with diabetic neuropathy, unspecified Code(s): E11.40 - TYPE 2 DIABETES MELLITUS WITH DIABETIC NEUROPATHY, UNSP Qualifiers: (6) PAD (peripheral artery disease) Code(s): I73.9 - PERIPHERAL VASCULAR DISEASE, UNSPECIFIED (7) Normocytic anemia 8 cellulitis of the left leg plan continue abx stopped clinda patient will need 2 weeks of abx lymph nodes can be reevalauted with ultrasound if not decreasing biopsy
[2017-04-15] MEDS: oxyCODONE HCL 5 MG TABLET PO PRN ×3 (00:32→22:14)
[2017-04-15] MEDS ORDERED: PIPERACILLIN/TAZOBACTAM 3.375 GM VIAL IVPB ONE ×3 (01:51→17:38)
[2017-04-15] MEDS ORDERED: DEXTROSE 5%-WATER - 50 ML IVPB ONE ×3 (01:51→17:38)
[2017-04-15] MEDS: PIPERACILLIN/TAZOB 3.375 GM 3.375 GM in DEXTROSE 5%-WATER - 50 ML IVPB SCH ×3 (02:13→18:38)
[2017-04-15] MEDS: HEPARIN NA (PORCINE) 5,000 UNITS/ML 1ML VIAL SQ SCH ×3 (06:46→22:05)
[2017-04-15] MEDS: INSULIN DETEMIR 100 UNITS/ML MDV SQ SCH ×2 (06:46→22:07)
[2017-04-15] MEDS: INSULIN SLIDING SCALE (NOVOLOG) 1 VIAL SQ SCH ×3 (06:46→17:11)
[2017-04-15 08:12] LABS: BASOPHIL 1.1 % (0-2.0); EOSINOPHIL 5.5 % (0-4.5); MCH 27.5 pg (25.7-33.7); MCHC 32.7 g/dl (32.0-35.9); MEAN CELL VOLUME 84.3 fl (80-96); MEAN PLT VOLUME 7.2 fl (7.5-11.1); NEUTROPHILS 42.3 % (42.8-82.8); PLATELET COUNT 279 K/MM3 (134-434); RDW 12.5 % (11.9-15.9); WHITE BLOOD COUNT 5.9 K/mm3 (4.0-10.0)
[2017-04-15 08:35] LABS: ALBUMIN 2.5 g/dl (3.4-5.0); ANION GAP 7 (8-16); BILIRUBIN,TOTAL 0.3 mg/dL (0.2-1.0); CALCIUM 8.4 mg/dL (8.5-10.1); CO2 28 mmol/L (21-32); CREATININE 1.2 mg/dL (0.7-1.3); GLUCOSE,RANDOM 133 mg/dL (74-106); SGOT/AST 12 U/L (15-37); SGPT/ALT 27 U/L (12-78)
[2017-04-15 08:36] LABS: ALK PHOS 69 U/L (45-117); TOT PROT 6.3 g/dl (6.4-8.2)
[2017-04-15] MEDS: METOPROLOL SUCCINATE 50 MG TAB.SR.24H (FP) PO SCH ×2 (09:58→22:07)
[2017-04-15] MEDS: COLLAGENASE CLOSTRIDIUM HIST. 30 GRAMS TUBE TP SCH (10:00)
[2017-04-15] MEDS: LISINOPRIL 20 MG TABLET (FP) PO SCH (10:00)
[2017-04-15] MEDS: NIFEdipine E.R 60 MG TABLET (UD) PO SCH (10:00)
--- NOTE | 2017-04-15 12:57 | PN ---
Progress Note, Physician History of Present Illness: doing well no issues - Current Medication List Current Medications: Active Medications Collagenase (Santyl -) 1 applic TP DAILY [facility] Last Admin: 04/15/17 10:00 Dose: 1 applic Docusate Sodium (Colace -) 100 mg PO BID PRN PRN Reason: CONSTIPATION Last Admin: 04/11/17 23:07 Dose: 100 mg Heparin Sodium (Porcine) (Heparin -) 5,000 unit SQ TID [facility] Last Admin: 04/15/17 06:46 Dose: 5,000 unit Piperacillin Sod/Tazobactam (Sod 3.375 gm/ Dextrose) 50 mls @ 100 mls/hr IVPB Q8H-IV SANGEETHA PRN Reason: Protocol Last Admin: 04/15/17 09:59 Dose: 100 mls/hr Insulin Aspart (Novolog Vial Sliding Scale -) 1 vial SQ TIDAC [facility] PRN Reason: Protocol Last Admin: 04/15/17 11:55 Dose: 2 units Insulin Detemir (Levemir Vial) 14 units SQ AM [facility] Last Admin: 04/15/17 06:46 Dose: 14 units Insulin Detemir (Levemir Vial) 4 units SQ HS [facility] Last Admin: 04/14/17 21:28 Dose: 4 units Lisinopril (Prinivil) 40 mg PO DAILY [facility] Last Admin: 04/15/17 10:00 Dose: 40 mg Metoprolol Succinate (Toprol Xl -) 50 mg PO BID [facility] Last Admin: 04/15/17 09:58 Dose: 50 mg Nifedipine (Procardia Xl -) 60 mg PO DAILY [facility] Last Admin: 04/15/17 10:00 Dose: 60 mg Oxycodone HCl (Roxicodone -) 5 mg PO Q6H PRN PRN Reason: PAIN Last Admin: 04/15/17 00:32 Dose: 5 mg - Objective Vital Signs: Vital Signs Temperature 98.0 F 04/15/17 07:00 Pulse Rate 80 04/15/17 07:00 Respiratory Rate 18 04/15/17 07:00 Blood Pressure 155/89 04/15/17 07:00 O2 Sat by Pulse Oximetry (%) 98 04/14/17 21:00 Constitutional: Yes: No Distress, Calm Cardiovascular: Yes: Regular Rate and Rhythm Respiratory: Yes: Regular, CTA Bilaterally Gastrointestinal: Yes: Normal Bowel Sounds, Soft Musculoskeletal: Yes: Other Extremities: Yes: Other Neurological: Yes: Alert, Oriented Psychiatric: Yes: Alert, Oriented Labs: CBC, BMP 04/15/17 07:00 04/15/17 07:00 INR, PTT INR 1.12 (0.82-1.09) 04/08/17 15:55 Assessment/Plan Problem List - Problem (1) Enlarged lymph node Code(s): R59.9 - ENLARGED LYMPH NODES, UNSPECIFIED (2) Hypertension Code(s): I10 - ESSENTIAL (PRIMARY) HYPERTENSION Qualifiers: (3) Diabetic ulcer of left foot Code(s): E11.621 - TYPE 2 DIABETES MELLITUS WITH FOOT ULCER L97.529 - NON-PRESSURE CHRONIC ULCER OTH PRT LEFT FOOT W UNSP SEVERITY (4) Insulin dependent diabetes mellitus Code(s): E11.9 - TYPE 2 DIABETES MELLITUS WITHOUT COMPLICATIONS Z79.4 - SENIOR CARE (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 OF INSULIN (5) Type 2 diabetes mellitus with diabetic neuropathy, unspecified Code(s): E11.40 - TYPE 2 DIABETES MELLITUS WITH DIABETIC NEUROPATHY, UNSP Qualifiers: (6) PAD (peripheral artery disease) Code(s): I73.9 - PERIPHERAL VASCULAR DISEASE, UNSPECIFIED (7) Normocytic anemia 8 cellulitis of the left leg plan continue abx lymph node biopsy
--- NOTE | 2017-04-15 15:06 | CONSULT ---
Consult Consult Specialty:: Hemtaology/Oncology - History of Present Illness History of Present Illness: 57 year-old male with a PMH of poorly controlled HTN, poorly controlled insulin dependent DM, and PAD s/p left hallux amputation and first ray resection in 2016, has been followed in the Wound Center and receiving hyperbaric therapy. Admitted for inguinal lymphadenopathy and left foot infection. Patient is being treated for wound infection, we were consulted for the presence of LAD. No B-symptoms. 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 [Santyl] 1 applic TP DAILY #90 oint...g. 02/07/17 Collagenase Clostridium Hist. [Santyl] 1 applic TP DAILY #90 oint...g. 03/21/17 Glipizide [Glucotrol] 0 mg PO BID 04/08/17 Insulin (Levemir) [Levemir Vial] 4 units SQ HS 04/08/17 Metformin HCl [Glucophage -] 500 mg PO DAILY 04/08/17 Oxycodone HCl 15 mg PO DAILY 04/08/17 Physical Exam Vital Signs: Vital Signs Temperature 98.0 F 04/15/17 07:00 Pulse Rate 80 04/15/17 07:00 Respiratory Rate 18 04/15/17 07:00 Blood Pressure 155/89 04/15/17 07:00 O2 Sat by Pulse Oximetry (%) 98 04/14/17 21:00 Constitutional: Yes: Well Nourished, No Distress, Calm Eyes: Yes: Conjunctiva Clear, EOM Intact HENT: Yes: Atraumatic, Normocephalic Neck: Yes: Supple, Trachea Midline Cardiovascular: Yes: Regular Rate and Rhythm Respiratory: Yes: Regular, CTA Bilaterally Gastrointestinal: Yes: Normal Bowel Sounds Musculoskeletal: Yes: WNL Extremities: Yes: WNL, Other (dressing in the LLE) Edema: No Neurological: Yes: Alert, Oriented ...Motor Strength: WNL Labs: CBC, BMP 04/15/17 07:00 04/15/17 07:00 Imaging - Results Ultrasound: Report Reviewed Assessment/Plan 57 year-old male with a PMH of poorly controlled HTN, poorly controlled insulin dependent DM, and PAD s/p left hallux amputation and first ray resection in 2016, has been followed in the Wound Center and receiving hyperbaric therapy. Admitted for inguinal lymphadenopathy and left foot infection. -LAD likely inflammatory -prior to consult, pt alreay on schedule for biopsy of the LAD,will f/u on path -r/o LAD at any other site. CT c/a/p ordered -anemia w/u -d/w pt and communicated with MAGALY
--- NOTE | 2017-04-15 18:15 | PN ---
Physical Exam: SUBJECTIVE: Patient seen and examined at the bedside. OBJECTIVE: I spoke to Dr. Ponce (vascular) who recommends that a biopsy of the lymph nodes be ordered Vital Signs Period Temp Pulse Resp BP Sys/Lopez Pulse Ox Last 24 Hr 98.0 F-98.5 F 77-105 18-22 131-155/73-89 98-100 GENERAL: The patient is awake, alert, and fully oriented, in no acute distress. HEAD: Normal with no signs of trauma. EYES: PERRL, extraocular movements intact, sclera anicteric, conjunctiva clear. No ptosis. ENT: Ears normal, nares patent, oropharynx clear without exudates, moist mucous membranes. NECK: Trachea midline, full range of motion, supple. HEART: Regular rate and rhythm, S1, S2 without murmur, rub or gallop. ABDOMEN: Soft, nontender, nondistended, normoactive bowel sounds, no guarding, no rebound, no hepatosplenomegaly, no masses. EXTREMITIES: Left lower ext wound with c/d/i dressing. no edema NEUROLOGICAL: Normal speech, gait not observed. PSYCH: Normal mood, normal affect. Laboratory Results - last 24 hr 04/14/17 04/15/17 04/15/17 21:26 05:31 07:00 WBC 5.9 RBC 3.52 L Hgb 9.7 L Hct 29.7 L MCV 84.3 MCH 27.5 MCHC 32.7 RDW 12.5 Plt Count 279 MPV 7.2 L Neutrophils % 42.3 L Lymphocytes % 39.4 Monocytes % 11.7 H Eosinophils % 5.5 H Basophils % 1.1 Sodium Potassium Chloride Carbon Dioxide Anion Gap BUN Creatinine Creat Clearance w eGFR POC Glucometer 244 167 Random Glucose Calcium Total Bilirubin AST ALT Alkaline Phosphatase Total Protein Albumin 04/15/17 04/15/17 04/15/17 07:00 11:45 17:07 WBC RBC Hgb Hct MCV MCH MCHC RDW Plt Count MPV Neutrophils % Lymphocytes % Monocytes % Eosinophils % Basophils % Sodium 143 Potassium 4.2 Chloride 108 H Carbon Dioxide 28 Anion Gap 7 L BUN 26 H Creatinine 1.2 Creat Clearance w eGFR > 60 POC Glucometer 174 178 Random Glucose 133 H Calcium 8.4 L Total Bilirubin 0.3 AST 12 L ALT 27 Alkaline Phosphatase 69 Total Protein 6.3 L Albumin 2.5 L Active Medications Generic Name Dose Route Start Last Admin Trade Name Freq PRN Reason Stop Dose Admin Collagenase 1 applic 04/12/17 10:00 04/15/17 10:00 Santyl - TP 1 applic DAILY S[facility]ETHA Administration Docusate Sodium 100 mg 04/09/17 22:10 04/11/17 23:07 Colace - PO 100 mg BID PRN Administration CONSTIPATION Heparin Sodium (Porcine) 5,000 unit 04/09/17 06:00 04/15/17 15:51 Heparin - SQ 5,000 unit TID SANGEETHA Administration Piperacillin Sod/Tazobactam 50 mls @ 100 mls/hr 04/09/17 18:00 04/15/17 09:59 Sod 3.375 gm/ Dextrose IVPB 100 mls/hr Q8H-IV SANGEETHA Administration Protocol Insulin Aspart 1 vial 04/09/17 07:00 04/15/17 17:11 Novolog Vial Sliding Scale - SQ 2 units TIDAC SANGEET[facility] Administration Protocol Insulin Detemir 14 units 04/09/17 07:00 04/15/17 06:46 Levemir Vial SQ 14 units AM [facility]ANGEETHA Administration Insulin Detemir 4 units 04/09/17 22:00 04/14/17 21:28 Levemir Vial SQ 4 units HS SANGEETHA Administration Lisinopril 40 mg 04/09/17 10:00 04/15/17 10:00 Prinivil PO 40 mg DAILY [facility] Administration Metoprolol Succinate 50 mg 04/12/17 12:00 04/15/17 09:58 Toprol Xl - PO 50 mg BID SANGEETHA Administration Nifedipine 60 mg 04/09/17 10:00 04/15/17 10:00 Procardia Xl - PO 60 mg DAILY [facility] Administration Oxycodone HCl 5 mg 04/15/17 00:04 04/15/17 15:50 Roxicodone - PO 5 mg Q6H PRN Administration PAIN ASSESSMENT/PLAN: Patient is a 57 year-old male with a past medical history of poorly controlled HTN, poorly controlled insulin dependent DM, and PAD s/p left hallux amputation with resection. He is being followed in the wound care center and receives hyperbaric therapy. He was admitted on 04/08/2107 for inguinal lymphadenopathy and left foot infection. ID: Left foot cellulitis/Infection, acute on chronic A/P: Remains afebrile, WBC stable On Zosyn and Clindamycin On daily Santyl for wound care Patient to resume hyperbaric therapy on discharge ID following Vascular consulted Vascular: Bilateral inguinal lymphadenopathy, acute Unclear etiology, but may be due to chronic infection WBC stable, afebrile On Zosyn and clindamycin Biopsy of lymph nodes done today, oncology also following CT abd/pelvis ordered Cardiology: Hypertension - controlled A/P: On Toprol BID, Lisinopril and Nifedipine Monitor BP Endocrine: Diabetes mellitus, chronic A/P: On Levemir BID, Novolog sliding scale F.E.N. Fluids: tolerating PO Electrolytes: monitor Nutrition: diabetic diet Prophylaxis: DVT: Heparin TID GI: deferred Disposition: continues to require inpatient care. Full Code.
--- NOTE | 2017-04-15 19:36 | PN ---
Progress Note (short form) - Note Progress Note: Vascular Surgery Pt seen and examined. at bedside. Left foot dressing changed. Wound clean, pink. Cont santyl to area daily. HBO once discharged. Lymph node biopsy done today. Luis Manuel Ponce DO
[2017-04-16] MEDS ORDERED: PIPERACILLIN/TAZOBACTAM 3.375 GM VIAL IVPB ONE ×3 (00:33→18:13)
[2017-04-16] MEDS ORDERED: DEXTROSE 5%-WATER - 50 ML IVPB ONE ×3 (00:34→18:13)
[2017-04-16] MEDS: PIPERACILLIN/TAZOB 3.375 GM 3.375 GM in DEXTROSE 5%-WATER - 50 ML IVPB SCH ×3 (02:00→18:56)
[2017-04-16 06:50] LABS: MCH 28.1 pg (25.7-33.7); MCHC 33.2 g/dl (32.0-35.9); MEAN CELL VOLUME 84.4 fl (80-96); NEUTROPHILS 41.5 % (42.8-82.8); PLATELET COUNT 260 K/MM3 (134-434); RDW 12.8 % (11.9-15.9); WHITE BLOOD COUNT 5.6 K/mm3 (4.0-10.0)
[2017-04-16 06:52] LABS: MCH 28.1 pg (25.7-33.7); MCHC 33.3 g/dl (32.0-35.9); MEAN CELL VOLUME 84.4 fl (80-96); MEAN PLT VOLUME 6.9 fl (7.5-11.1); PLATELET COUNT 257 K/MM3 (134-434); RDW 12.4 % (11.9-15.9); WHITE BLOOD COUNT 5.7 K/mm3 (4.0-10.0)
[2017-04-16] MEDS: INSULIN SLIDING SCALE (NOVOLOG) 1 VIAL SQ SCH ×3 (06:58→17:42)
[2017-04-16] MEDS: HEPARIN NA (PORCINE) 5,000 UNITS/ML 1ML VIAL SQ SCH ×3 (06:59→21:55)
[2017-04-16] MEDS ORDERED: INSULIN (NOVOLOG) ASPART 100 UNITS/ML 10ML VIAL ONE (07:08)
[2017-04-16 07:26] LABS: ALBUMIN 2.5 g/dl (3.4-5.0); CALCIUM 8.4 mg/dL (8.5-10.1); GLUCOSE,RANDOM 156 mg/dL (74-106)
[2017-04-16 07:34] LABS: ALK PHOS 70 U/L (45-117); ANION GAP 9 (8-16); BILIRUBIN,TOTAL 0.3 mg/dL (0.2-1.0); CO2 26 mmol/L (21-32); FERRITIN 633.313 ng/ml (16.4-293.9); LDH 157 U/L (87-241); SGOT/AST 13 U/L (15-37); SGPT/ALT 26 U/L (12-78); TOT PROT 6.3 g/dl (6.4-8.2); URIC ACID 3.8 mg/dL (2.6-7.2)
[2017-04-16 09:54] LABS: C-REACTIVE PROTEIN < 0.3 MG/DL (0.00-0.3)
[2017-04-16 10:46] LABS: ERYTHROCYTE SEDIMENTATION RATE 30 mm/hr (0-20)
[2017-04-16] MEDS: COLLAGENASE CLOSTRIDIUM HIST. 30 GRAMS TUBE TP SCH (11:00)
[2017-04-16] MEDS: NIFEdipine E.R 60 MG TABLET (UD) PO SCH (11:55)
[2017-04-16] MEDS: METOPROLOL SUCCINATE 50 MG TAB.SR.24H (FP) PO SCH ×2 (11:55→21:54)
[2017-04-16] MEDS: LISINOPRIL 20 MG TABLET (FP) PO SCH (11:56)
--- NOTE | 2017-04-16 13:08 | PN ---
Physical Exam: SUBJECTIVE: Patient seen and examined. States he feels better today. Denies pain. OBJECTIVE: Awaiting ID recommendation for outpatient antibiotic therapy Discharge planning Vital Signs Period Temp Pulse Resp BP Sys/Lopez Pulse Ox Last 24 Hr 97.0 F-98.2 F 77-90 18-22 104-169/70-85 100 GENERAL: The patient is awake, alert, and fully oriented, in no acute distress. HEAD: Normal with no signs of trauma. EYES: PERRL, extraocular movements intact, sclera anicteric, conjunctiva clear. No ptosis. ENT: Ears normal, nares patent, oropharynx clear without exudates, moist mucous membranes. NECK: Trachea midline, full range of motion, supple. HEART: Regular rate and rhythm, S1, S2 without murmur, rub or gallop. ABDOMEN: Soft, nontender, nondistended, normoactive bowel sounds, no guarding, no rebound, no hepatosplenomegaly, no masses. EXTREMITIES: Left lower ext wound with c/d/i dressing. no edema NEUROLOGICAL: Normal speech, gait not observed. PSYCH: Normal mood, normal affect. Laboratory Results - last 24 hr 04/15/17 04/15/17 04/16/17 17:07 20:52 06:15 WBC RBC Hgb Hct MCV MCH MCHC RDW Plt Count MPV Neutrophils % Lymphocytes % Monocytes % Eosinophils % Basophils % ESR Retic Count Sodium 142 Potassium 3.9 Chloride 107 Carbon Dioxide 26 Anion Gap 9 BUN 22 H Creatinine 1.0 Creat Clearance w eGFR > 60 POC Glucometer 178 218 Random Glucose 156 H Uric Acid 3.8 Calcium 8.4 L Ferritin 633.313 H Total Bilirubin 0.3 AST 13 L ALT 26 Alkaline Phosphatase 70 LD Total 157 C-Reactive Protein < 0.3 D Total Protein 6.3 L Albumin 2.5 L 04/16/17 04/16/17 04/16/17 06:15 06:15 06:16 WBC 5.7 5.6 RBC 3.50 L 3.51 L Hgb 9.8 L 9.8 L Hct 29.5 L 29.6 L MCV 84.4 84.4 MCH 28.1 28.1 MCHC 33.3 33.2 RDW 12.4 12.8 Plt Count 257 260 MPV 6.9 L 7.0 L Neutrophils % 41.5 L Lymphocytes % 40.7 H Monocytes % 10.8 H Eosinophils % 6.0 H Basophils % 1.0 ESR 30 H Retic Count 2.57 H Sodium Potassium Chloride Carbon Dioxide Anion Gap BUN Creatinine Creat Clearance w eGFR POC Glucometer 158 Random Glucose Uric Acid Calcium Ferritin Total Bilirubin AST ALT Alkaline Phosphatase LD Total C-Reactive Protein Total Protein Albumin 04/16/17 11:59 WBC RBC Hgb Hct MCV MCH MCHC RDW Plt Count MPV Neutrophils % Lymphocytes % Monocytes % Eosinophils % Basophils % ESR Retic Count Sodium Potassium Chloride Carbon Dioxide Anion Gap BUN Creatinine Creat Clearance w eGFR POC Glucometer 145 Random Glucose Uric Acid Calcium Ferritin Total Bilirubin AST ALT Alkaline Phosphatase LD Total C-Reactive Protein Total Protein Albumin Active Medications Generic Name Dose Route Start Last Admin Trade Name Freq PRN Reason Stop Dose Admin Collagenase 1 applic 04/12/17 10:00 04/15/17 10:00 Santyl - TP 1 applic DAILY SANGEETHA Administration Docusate Sodium 100 mg 04/09/17 22:10 04/11/17 23:07 Colace - PO 100 mg BID PRN Administration CONSTIPATION Heparin Sodium (Porcine) 5,000 unit 04/09/17 06:00 04/16/17 06:59 Heparin - SQ 5,000 unit TID SANGEETHA Administration Piperacillin Sod/Tazobactam 50 mls @ 100 mls/hr 04/09/17 18:00 04/16/17 11:56 Sod 3.375 gm/ Dextrose IVPB 100 mls/hr Q8H-IV SANGEETHA Administration Protocol Insulin Aspart 1 vial 04/09/17 07:00 04/16/17 12:00 Novolog Vial Sliding Scale - SQ Not Given TIDAC [facility] Protocol Insulin Detemir 14 units 04/09/17 07:00 04/15/17 06:46 Levemir Vial SQ 14 units AM SANGEETHA Administration Insulin Detemir 4 units 04/09/17 22:00 04/15/17 22:07 Levemir Vial SQ 4 units HS SANGEETHA Administration Lisinopril 40 mg 04/09/17 10:00 04/16/17 11:56 Prinivil PO 40 mg DAILY SANGEETHA Administration Metoprolol Succinate 50 mg 04/12/17 12:00 04/16/17 11:55 Toprol Xl - PO 50 mg BID SANGEETHA Administration Nifedipine 60 mg 04/09/17 10:00 04/16/17 11:55 Procardia Xl - PO 60 mg DAILY SANGEETHA Administration Oxycodone HCl 5 mg 04/15/17 00:04 04/15/17 22:14 Roxicodone - PO 5 mg Q6H PRN Administration PAIN ASSESSMENT/PLAN: Patient is a 57 year-old male with a past medical history of poorly controlled HTN, poorly controlled insulin dependent DM, and PAD s/p left hallux amputation with resection. He is being followed in the wound care center and receives hyperbaric therapy. He was admitted on 04/08/2107 for inguinal lymphadenopathy and left foot infection. ID: Left foot cellulitis/Infection, acute on chronic A/P: Remains afebrile, WBC stable On Zosyn 3.375 gm per ID If patient needs rn long term care IV antibiotics, he will need PICC line, awaiting ID input On daily Santyl for wound care Patient to resume hyperbaric therapy on discharge ID following Vascular consulted and following Vascular: Bilateral inguinal lymphadenopathy, acute Unclear etiology, but may be due to chronic infection vs. lymphoma WBC stable, afebrile On Zosyn and clindamycin Biopsy of lymph nodes done yesterday, oncology also following CT abd/pelvis ordered and pending read As per oncology, patient can follow up outpatient upon d/c next week Friday @ 10am, patient to confirm Cardiology: Hypertension - controlled A/P: On Toprol BID, Lisinopril and Nifedipine Monitor BP Endocrine: Diabetes mellitus, chronic A/P: On Levemir BID, Novolog sliding scale F.E.N. Fluids: tolerating PO Electrolytes: monitor Nutrition: diabetic diet Prophylaxis: DVT: Heparin TID GI: deferred Disposition: Full Code. Visit type - Emergency Visit Emergency Visit: Yes ED Registration Date: 04/08/17 Care time: The patient presented to the Emergency Department on the above date and was hospitalized for further evaluation of their emergent condition. - New Patient This patient is new to me today: No - Critical Care Critical Care patient: No - Discharge Referral Referred to [facility] No
[2017-04-16] MEDS: INSULIN DETEMIR 100 UNITS/ML MDV SQ SCH ×2 (13:40→21:55)
--- NOTE | 2017-04-16 14:57 | PN ---
Progress Note, Physician History of Present Illness: doing well no issues biopsy done - Current Medication List Current Medications: Active Medications Collagenase (Santyl -) 1 applic TP DAILY [facility] Last Admin: 04/15/17 10:00 Dose: 1 applic Docusate Sodium (Colace -) 100 mg PO BID PRN PRN Reason: CONSTIPATION Last Admin: 04/11/17 23:07 Dose: 100 mg Heparin Sodium (Porcine) (Heparin -) 5,000 unit SQ TID [facility] Last Admin: 04/16/17 06:59 Dose: 5,000 unit Piperacillin Sod/Tazobactam (Sod 3.375 gm/ Dextrose) 50 mls @ 100 mls/hr IVPB Q8H-IV SANGEETHA PRN Reason: Protocol Last Admin: 04/16/17 11:56 Dose: 100 mls/hr Insulin Aspart (Novolog Vial Sliding Scale -) 1 vial SQ TIDAC [facility] PRN Reason: Protocol Last Admin: 04/16/17 12:00 Dose: Not Given Insulin Detemir (Levemir Vial) 14 units SQ AM [facility] Last Admin: 04/16/17 13:40 Dose: Not Given Insulin Detemir (Levemir Vial) 4 units SQ HS [facility] Last Admin: 04/15/17 22:07 Dose: 4 units Lisinopril (Prinivil) 40 mg PO DAILY [facility] Last Admin: 04/16/17 11:56 Dose: 40 mg Metoprolol Succinate (Toprol Xl -) 50 mg PO BID [facility] Last Admin: 04/16/17 11:55 Dose: 50 mg Nifedipine (Procardia Xl -) 60 mg PO DAILY [facility] Last Admin: 04/16/17 11:55 Dose: 60 mg Oxycodone HCl (Roxicodone -) 5 mg PO Q6H PRN PRN Reason: PAIN Last Admin: 04/15/17 22:14 Dose: 5 mg - Objective Vital Signs: Vital Signs Temperature 98.0 F 04/16/17 06:00 Pulse Rate 77 04/16/17 10:00 Respiratory Rate 18 04/16/17 10:00 Blood Pressure 169/74 04/16/17 10:00 O2 Sat by Pulse Oximetry (%) 100 04/15/17 21:00 Constitutional: Yes: No Distress, Calm Cardiovascular: Yes: Regular Rate and Rhythm Respiratory: Yes: Regular, CTA Bilaterally Gastrointestinal: Yes: Normal Bowel Sounds, Soft Musculoskeletal: Yes: Other Extremities: Yes: Erythema (improving), Other Neurological: Yes: Alert, Oriented Psychiatric: Yes: Alert, Oriented Labs: CBC, BMP 04/16/17 06:15 04/16/17 06:15 INR, PTT INR 1.12 (0.82-1.09) 04/08/17 15:55 Assessment/Plan Problem List - Problem (1) Enlarged lymph node Code(s): R59.9 - ENLARGED LYMPH NODES, UNSPECIFIED (2) Hypertension Code(s): I10 - ESSENTIAL (PRIMARY) HYPERTENSION Qualifiers: (3) Diabetic ulcer of left foot Code(s): E11.621 - TYPE 2 DIABETES MELLITUS WITH FOOT ULCER L97.529 - NON-PRESSURE CHRONIC ULCER OTH PRT LEFT FOOT W UNSP SEVERITY (4) Insulin dependent diabetes mellitus Code(s): E11.9 - TYPE 2 DIABETES MELLITUS WITHOUT COMPLICATIONS Z79.4 - LONG-TERM (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 OF INSULIN (5) Type 2 diabetes mellitus with diabetic neuropathy, unspecified Code(s): E11.40 - TYPE 2 DIABETES MELLITUS WITH DIABETIC NEUROPATHY, UNSP Qualifiers: (6) PAD (peripheral artery disease) Code(s): I73.9 - PERIPHERAL VASCULAR DISEASE, UNSPECIFIED (7) Normocytic anemia 8 cellulitis of the left leg plan continue abx lymph node biopsy done will be able to switch to oral abx tomorrow after evaluating the leg again rest as per primary team
[2017-04-16] MEDS: oxyCODONE HCL 5 MG TABLET PO PRN ×2 (15:48→21:53)
[2017-04-17] MEDS ORDERED: DEXTROSE 5%-WATER - 50 ML IVPB ONE ×2 (00:44→10:54)
[2017-04-17] MEDS ORDERED: PIPERACILLIN/TAZOBACTAM 3.375 GM VIAL IVPB ONE ×2 (00:44→10:54)
[2017-04-17] MEDS: PIPERACILLIN/TAZOB 3.375 GM 3.375 GM in DEXTROSE 5%-WATER - 50 ML IVPB SCH ×2 (01:31→11:03)
[2017-04-17 06:07] LABS: HEP B SURFACE AB Non Reactive (.); SERUM IRON 117 ug/dL (38-169); TOTAL IRON BINDING CAPACITY 240 ug/dL (250-450); UIBC 123 ug/dL (111-343)
[2017-04-17] MEDS: INSULIN SLIDING SCALE (NOVOLOG) 1 VIAL SQ SCH ×2 (06:11→12:04)
[2017-04-17] MEDS: HEPARIN NA (PORCINE) 5,000 UNITS/ML 1ML VIAL SQ SCH ×2 (06:13→15:14)
[2017-04-17] MEDS: INSULIN DETEMIR 100 UNITS/ML MDV SQ SCH (06:14)
[2017-04-17] MEDS: METOPROLOL SUCCINATE 50 MG TAB.SR.24H (FP) PO SCH (11:02)
[2017-04-17] MEDS: NIFEdipine E.R 60 MG TABLET (UD) PO SCH (11:02)
[2017-04-17] MEDS: LISINOPRIL 20 MG TABLET (FP) PO SCH (11:03)
[2017-04-17] MEDS: oxyCODONE HCL 5 MG TABLET PO PRN (11:21)
[2017-04-17] MEDS ORDERED: INSULIN (NOVOLOG) ASPART 100 UNITS/ML 10ML VIAL ONE (12:00)
[2017-04-17] MEDS: COLLAGENASE CLOSTRIDIUM HIST. 30 GRAMS TUBE TP SCH (12:05)
--- NOTE | 2017-04-17 13:28 | PN ---
Progress Note, Physician History of Present Illness: feels much better leg looking much better erythema has nearly resolved dressing dry intact - Current Medication List Current Medications: Active Medications Collagenase (Santyl -) 1 applic TP DAILY [facility] Last Admin: 04/17/17 12:05 Dose: 1 applic Docusate Sodium (Colace -) 100 mg PO BID PRN PRN Reason: CONSTIPATION Last Admin: 04/11/17 23:07 Dose: 100 mg Heparin Sodium (Porcine) (Heparin -) 5,000 unit SQ TID [facility] Last Admin: 04/17/17 06:13 Dose: 5,000 unit Piperacillin Sod/Tazobactam (Sod 3.375 gm/ Dextrose) 50 mls @ 100 mls/hr IVPB Q8H-IV SANGEETHA PRN Reason: Protocol Last Admin: 04/17/17 11:03 Dose: 100 mls/hr Insulin Aspart (Novolog Vial Sliding Scale -) 1 vial SQ TIDAC SANGEETHA PRN Reason: Protocol Last Admin: 04/17/17 12:04 Dose: 4 units Insulin Detemir (Levemir Vial) 14 units SQ AM [facility] Last Admin: 04/17/17 06:14 Dose: 14 units Insulin Detemir (Levemir Vial) 4 units SQ HS [facility] Last Admin: 04/16/17 21:55 Dose: 4 units Lisinopril (Prinivil) 40 mg PO DAILY [facility] Last Admin: 04/17/17 11:03 Dose: 40 mg Metoprolol Succinate (Toprol Xl -) 50 mg PO BID [facility] Last Admin: 04/17/17 11:02 Dose: 50 mg Nifedipine (Procardia Xl -) 60 mg PO DAILY [facility] Last Admin: 04/17/17 11:02 Dose: 60 mg Oxycodone HCl (Roxicodone -) 5 mg PO Q6H PRN PRN Reason: PAIN Last Admin: 04/17/17 11:21 Dose: 5 mg - Objective Vital Signs: Vital Signs Temperature 98.4 F 04/17/17 09:00 Pulse Rate 77 04/17/17 09:00 Respiratory Rate 20 04/17/17 09:00 Blood Pressure 164/78 04/17/17 09:00 O2 Sat by Pulse Oximetry (%) 100 04/16/17 21:00 Constitutional: Yes: No Distress, Calm Cardiovascular: Yes: Regular Rate and Rhythm Respiratory: Yes: Regular, CTA Bilaterally Gastrointestinal: Yes: Normal Bowel Sounds, Soft Musculoskeletal: Yes: Other Extremities: Yes: Other (dressing in place) Integumentary: Yes: Erythema (nearly resolved) Wound/Incision: Yes: Dressing Dry and Intact Neurological: Yes: Alert, Oriented Psychiatric: Yes: Alert, Oriented Labs: CBC, BMP 04/16/17 06:15 04/16/17 06:15 INR, PTT INR 1.12 (0.82-1.09) 04/08/17 15:55 Assessment/Plan Problem List - Problem (1) Enlarged lymph node Code(s): R59.9 - ENLARGED LYMPH NODES, UNSPECIFIED (2) Hypertension Code(s): I10 - ESSENTIAL (PRIMARY) HYPERTENSION Qualifiers: (3) Diabetic ulcer of left foot Code(s): E11.621 - TYPE 2 DIABETES MELLITUS WITH FOOT ULCER L97.529 - NON-PRESSURE CHRONIC ULCER OTH PRT LEFT FOOT W UNSP SEVERITY (4) Insulin dependent diabetes mellitus Code(s): E11.9 - TYPE 2 DIABETES MELLITUS WITHOUT COMPLICATIONS Z79.4 - SENIOR CARE (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 OF INSULIN (5) Type 2 diabetes mellitus with diabetic neuropathy, unspecified Code(s): E11.40 - TYPE 2 DIABETES MELLITUS WITH DIABETIC NEUROPATHY, UNSP Qualifiers: (6) PAD (peripheral artery disease) Code(s): I73.9 - PERIPHERAL VASCULAR DISEASE, UNSPECIFIED (7) Normocytic anemia 8 cellulitis of the left leg plan leg improving patient can be discharged home on levaquin 750 mg daily po for 8 more days bactrim ds bid po for 6 more days wound care must follow for the biopsy result of the lymph nodes
--- NOTE | 2017-04-17 13:43 | DS ---
Physical Exam: SUBJECTIVE: Patient seen and examined OBJECTIVE: Vital Signs Period Temp Pulse Resp BP Sys/Lopez Pulse Ox Last 24 Hr 97.4 F-98.4 F 77-81 16-20 125-164/70-79 100 PHYSICAL EXAM GENERAL: The patient is awake, alert, and fully oriented, in no acute distress. HEAD: Normal with no signs of trauma. EYES: PERRL, extraocular movements intact, sclera anicteric, conjunctiva clear. ENT: Ears normal, nares patent, oropharynx clear without exudates, moist mucous membranes. NECK: Trachea midline, full range of motion, supple. LUNGS: Breath sounds equal, clear to auscultation bilaterally, no wheezes, no crackles, no accessory muscle use. HEART: Regular rate and rhythm, S1, S2 without murmur, rub or gallop. ABDOMEN: Soft, nontender, nondistended, normoactive bowel sounds, no guarding, no rebound, no hepatosplenomegaly, no masses. EXTREMITIES: 2+ pulses, warm, well-perfused, no edema. NEUROLOGICAL: Cranial nerves II through XII grossly intact. Normal speech, gait not observed. PSYCH: Normal mood, normal affect. SKIN: Warm, dry, normal turgor, no rashes or lesions noted. LABS Laboratory Results - last 24 hr 04/16/17 04/16/17 04/16/17 06:15 17:40 21:21 POC Glucometer 330 162 Iron 117 TIBC 240 L Iron Saturation 49 Hep Bs Ab Concentration Non reactive Hep B Core IgM Ab Negative Hep B Core Ab Interpret Negative Hepatitis C Antibody 0.1 04/17/17 04/17/17 05:57 11:23 POC Glucometer 140 221 Iron TIBC Iron Saturation Hep Bs Ab Concentration Hep B Core IgM Ab Hep B Core Ab Interpret Hepatitis C Antibody HOSPITAL COURSE: Date of Admission:04/08/17 Date of Discharge: 04/17/17 Discharge Summary Reason For Visit: ENLARGED LYMPH NODE Current Active Problems DVT prophylaxis (Acute) Diabetic ulcer of left foot (Acute) Enlarged lymph node (Acute) PAD (peripheral artery disease) (Acute) Condition: Improved - Instructions Diet, Activity, Other Instructions: Please return to the ED with new, persistent, or worsening symptoms. Please follow-up with providers as indicated. Referrals: Annika Cedeno MD [Staff Physician] - (Please follow-up with infectious disease within 1 week for further management of your left leg cellulitis) Waldemar Eid MD [Primary Care Provider] - 1 Week Louisa Zuniga MD [Staff Physician] - (Please follow-up with Dr. Jasso ( oncology) within 1 week for the results of your lymph node biopsy ) Luis Manuel Ponce MD [Staff Physician] - (Please follow-up with Dr. Ponce within 2- 3 days to set up outpatient hyperbaric oxygen ) Disposition: HOME - Home Medications Comprehensive Discharge Medication List: Ambulatory Orders Insulin Sliding Scale [Novolog Vial Sliding Scale -] 1 vial SQ ACHS units 11/15 Insulin (Levemir) [Levemir Vial] 14 units SQ AM #0 ml 11/25/16 Lisinopril [Prinivil] 40 mg PO DAILY #0 tablet 11/25/16 Nifedipine ER [Procardia XL -] 60 mg PO DAILY tab 11/25/16 Collagenase Clostridium Hist. [Santyl] 1 applic TP DAILY #90 oint...g. 02/07/17 Collagenase Clostridium Hist. [Santyl] 1 applic TP DAILY #90 oint...g. 03/21/17 Glipizide [Glucotrol] 0 mg PO BID 04/08/17 Insulin (Levemir) [Levemir Vial] 4 units SQ HS 04/08/17 Metformin HCl [Glucophage -] 500 mg PO DAILY 04/08/17 Oxycodone HCl 15 mg PO DAILY 04/08/17 Collagenase Clostridium Hist. [Santyl -] 1 applic TP DAILY #1 tube 04/17/17 Levofloxacin [Levaquin] 750 mg PO DAILY #8 tab 04/17/17 Sulfamethoxazole/Trimethoprim [Bactrim Ds -] 1 tab PO BID #12 tablet 04/17/17 - Discharge Referral [facility]erred to [facility] No
[2017-04-17 15:44] VITALS: BP 159/80; PULSE 76; TEMP 98.3
--- NOTE | 2017-04-17 15:58 | PATH ---
Surgical Pathology Report Patient Name: FILIPPO RICHARD [facility]. Rec. #: [id number] /Age/Gender: 1960 (Age: 57) / M Account: [id number] Location: [address] [place] [address] Taken: 04/15/2017 Received: 04/16/2017 Reported: 04/17/2017 Physicians: Holger Tripp M.D. Specimen(s) Received LEFT GROIN LYMPH NODE Clinical History 57-year-old male with left wound and multiple enlarged inguinal lymph nodes Final Diagnosis LEFT GROIN, LYMPH NODE, BIOPSY: FRAGMENTS OF LYMPHOID TISSUE WITH REACTIVE CHANGES. COMMENT: Flow cytometry performed and interpreted at [facility], [place], [place] ([id number]) shows the following: Limited sample shows no evidence of B or T-cell proliferative disorders. See Emerge report for additional details. Histomorphology and flow cytometry findings support the diagnosis. Electronically Signed Tessy Grimes M.D. Gross Description Received in formalin labeled "lymph node biopsy left groin," are 4 arevalo, cylindrical portions of soft tissue ranging from 0.5-0.8 cm in length and averaging 0.1 cm in diameter. The specimens are submitted in toto in one cassette. There is additional tissue received in RPMI solution which is sent for flow cytometry. 04/16/201704/16/2017
[2017-04-18 00:06] LABS: A/G RATIO 0.8 (0.7-1.7); ALBUMIN 2.6 g/dL (2.9-4.4); ALPHA-1-GLOBULIN 0.1 g/dL (0.0-0.4); GAMMA GLOBULIN 1.4 g/dL (0.4-1.8); GLOBULIN, TOTAL 3.5 g/dL (2.2-3.9); M-SPIKE Not Observed g/dL (Not Observed); TOTAL PROTEIN 6.1 g/dL (6.0-8.5)
== END 2017-04-17 17:22 | disposition home or self-care (01) | DRG 651 ==
LOC: JER 14:28 → JERBED 20:44 → J5S 23:07
PROVIDERS: ADMIT Internal Medicine; ATTEND Registered Nurse
PROC: 079J3ZX Drainage of Left Inguinal Lymphatic, Percutaneous Approach, Diagnostic (ICD-10-PCS; principal; 2017-04-15)
DX: R59.0 Localized enlarged lymph nodes (principal); I10 Essential (primary) hypertension; Z91.14 Patient's other noncompliance with medication regimen; E11.51 Type 2 diabetes mellitus with diabetic peripheral angiopathy without gangrene; Z89.412 Acquired absence of left great toe; E11.65 Type 2 diabetes mellitus with hyperglycemia; Z79.4 Long term (current) use of insulin; D64.9 Anemia, unspecified; L03.116 Cellulitis of left lower limb; E11.621 Type 2 diabetes mellitus with foot ulcer; L97.429 Non-pressure chronic ulcer of left heel and midfoot with unspecified severity
CPT/HCPCS: 11042; 36415; 71020-TC; 71260-TC; 73630-TC-LT; 74177-TC; 76705; 76882; 76942-TC; 80048; 80053; 81003; 81015; 82728; 82784; 83540; 83550; 83605; 83615; 83735; 84100; 84155; 84165; 84550; 85025; 85027; 85044; 85610; 85651; 86140; 86334; 86704; 86705; 86706; 86803; 86850; 86900; 86901; 87040; 87070; 87086; 87186; 87205; 87899; 88305-TC; 93005; 93010; 93971; 93971-TC; 97116-GP; 97161-GP; 99285-25; G0277; J1644; Q9967

== ENCOUNTER 2017-05-23 19:52 | Inpatient (IN) | payer OTHER ==
--- NOTE | 2017-05-23 19:59 | PDOC ---
Rapid Medical Evaluation Chief Complaint: Back Pain Time Seen by Provider: 05/23/17 19:55 Medical Evaluation: Allergies Allergy/AdvReac Type Severity Reaction Status Date / Time No Known Allergies Allergy Verified 04/08/17 14:39 05/23/17 19:55 I have performed a brief in-person evaluation of this patient. The patient presents with a chief complaint of: Low Back Pain/Admission Pertinent physical exam findings: N/A I have ordered the following: N/A The patient will proceed to the ED for further evaluation Patient sent in to ED for admission by Oncology/Hematology physician. Patient states he had an MRI-back this past Friday due to swollen lymph nodes in groin. Patient states he was admitted and release approximately 2-3 weeks ago. Patient states he received the call today to report to ED for admission. He denies any complaints at this time.
--- NOTE | 2017-05-23 22:04 | PDOC ---
History of Present Illness - General History Source: Patient Exam Limitations: No Limitations - History of Present Illness Initial Comments: 05/23/17 22:15 The patient is a 57-year-old male with a significant past medical history of diabetes, HTN, and amputated L hallux, who is sent by oncologist to the emergency department s/p abnormal MRI results. The patient reports he has been getting hyperbaric chamber treatments for LLE infection and swelling, but they found bilateral swollen lymph nodes at the groin region. As a result, they ordered a spinal MRI which revealed possible osteomyelitis. He was told to report to the ED for admission. Patient denies any acute complaints at this time. The patient denies chest pain, shortness of breath, headache and dizziness. The patient denies fever, chills, nausea, vomit, diarrhea and constipation. The patient denies dysuria, frequency, urgency and hematuria. Allergies: NKDA Past Surgical History: L hallux amputation with Apligraf Social History: No toxic habits reported PCP: Dr. Eid Vascular: Dr. Ponce ID: Dr. Cedeno <Anupama Bliss - Last Filed: 05/23/17 23:05> <Natalia Painter - Last Filed: 05/24/17 01:27> - General Chief Complaint: Back Pain Stated Complaint: FOLLOW-UP Time Seen by Provider: 05/23/17 19:55 Past History <Anupama Bliss - Last Filed: 05/23/17 23:05> - Past Medical History Anemia: No Asthma: No CVA: No COPD: No Dementia: No Diabetes: Yes (not on meds) GI Disorders: No Disorders: No HTN: Yes Liver Disease: No Seizures: No - Suicide/Smoking/Psychosocial Hx Smoking History: Never smoked Have you smoked in the past 12 months: No Hx Alcohol Use: No Drug/Substance Use Hx: No Substance Use Type: None Hx Substance Use Treatment: No <Natalia Painter - Last Filed: 05/24/17 01:27> - Past Medical History Allergies/Adverse Reactions: Allergies Allergy/AdvReac Type Severity Reaction Status Date / Time No Known Allergies Allergy Verified 05/23/17 19:55 Home Medications: Ambulatory Orders Lisinopril [Prinivil] 40 mg PO DAILY #0 tablet 11/25/16 Nifedipine ER [Procardia XL -] 60 mg PO DAILY tab 05/22/17 Glipizide [Glucotrol] 0 mg PO BID 04/08/17 Metformin HCl [Glucophage -] 500 mg PO DAILY 04/08/17 Oxycodone HCl 15 mg PO DAILY 04/08/17 Review of Systems - Review of Systems Able to Perform ROS?: Yes Comments:: 05/23/17 22:15 GENERAL/CONSTITUTIONAL: No fever or chills. No weakness. HEAD, EYES, EARS, NOSE AND THROAT: No change in vision. No ear pain or discharge. No sore throat. CARDIOVASCULAR: No chest pain or shortness of breath. RESPIRATORY: No cough, wheezing, or hemoptysis. GASTROINTESTINAL: No nausea, vomiting, diarrhea or constipation. GENITOURINARY: No dysuria, frequency, or change in urination. MUSCULOSKELETAL: No joint or muscle swelling or pain. No neck or back pain. SKIN: No rash NEUROLOGIC: No headache, vertigo, loss of consciousness, or change in strength/ sensation. ENDOCRINE: No increased thirst. No abnormal weight change. HEMATOLOGIC/LYMPHATIC: No anemia, easy bleeding, or history of blood clots. ALLERGIC/IMMUNOLOGIC: No hives or skin allergy. <Anupama Bliss - Last Filed: 05/23/17 23:05> *Physical Exam - Vital Signs Last Vital Signs Temp Pulse Resp BP Pulse Ox 98 F 103 H 18 191/95 97 05/23/17 19:55 05/23/17 19:55 05/23/17 19:55 05/23/17 19:55 05/23/17 19:55 - Physical Exam Comments: 05/23/17 22:15 GENERAL: Awake, alert, and fully oriented, in no acute distress. Afebrile. HEAD: No signs of trauma EYES: PERRLA, EOMI, sclera anicteric, conjunctiva clear ENT: Auricles normal inspection, hearing grossly normal, nares patent, oropharynx clear without exudates. Moist mucosa NECK: Normal ROM, supple, no lymphadenopathy, JVD, or masses LUNGS: Breath sounds equal, clear to auscultation bilaterally. No wheezes, and no crackles HEART: Regular rate and rhythm, normal S1 and S2, no murmurs, rubs or gallops ABDOMEN: Soft, nontender, normoactive bowel sounds. No guarding, no rebound. No masses EXTREMITIES: Normal range of motion, (+) left pitting edema. (+) L hallux amputation. No clubbing or cyanosis. No cords, erythema, or tenderness NEUROLOGICAL: Cranial nerves II through XII grossly intact. Normal speech, normal gait SKIN: Warm, Dry, normal turgor, no rashes or lesions noted. <Anupama Bliss - Last Filed: 05/23/17 23:05> - Vital Signs Last Vital Signs Temp Pulse Resp BP Pulse Ox 98 F 103 H 18 191/95 97 05/23/17 19:55 05/23/17 19:55 05/23/17 19:55 05/23/17 19:55 05/23/17 19:55 <Natalia Painter - Last Filed: 05/24/17 01:27> ED Treatment Course - LABORATORY CBC & Chemistry Diagram: 05/23/17 22:31 05/23/17 22:31 <Anupama Bliss - Last Filed: 05/23/17 23:05> - LABORATORY CBC & Chemistry Diagram: 05/23/17 22:31 05/23/17 22:31 - RADIOLOGY Radiology Studies Ordered: Category Date Time Status CHEST X-RAY PORTABLE* [RAD] Stat Radiology 05/23/17 21:58 Ordered <Natalia Painter - Last Filed: 05/24/17 01:27> Medical Decision Making - Medical Decision Making 05/23/17 22:00 Pt was called by Dr. Cedeno to come to the ER for admission. He has a hx of DM and left large toe amputation. Pt states that he has been getting SBO for the foot and ankle and right lower leg swelling and wound/cellulitis. His doctors noted that he had bilateral inguinal lymph node enlargement, and they did an MRI of his spine which revealed L3-L5 compressions as well as possible spinal osteomyelitis. This is likely the reason for pt's return for admission. I will page Dr. Cedeno to find out what he plans for the patient (abx etc) 05/23/17 23:57 Dr. Cedeno wants patient admitted, but no abx at this time 05/24/17 00:10 Pt's labs are normal; he has anemia; baseline for the patient. EKG is NSR. <Natalia Painter - Last Filed: 05/24/17 01:27> *DC/Admit/Observation/Transfer - Attestations Scribe Attestion: 05/23/17 22:16 Documentation prepared by Anupama Bliss, acting as biomedical technician for Natalia Painter MD/DO. <Anupama Bliss - Last Filed: 05/23/17 23:05> - Discharge Dispostion Admit: Yes <Natalia Painter - Last Filed: 05/24/17 01:27> Diagnosis at time of Disposition: Osteomyelitis - Discharge Dispostion Condition at time of disposition: Guarded - Referrals Referrals: Waldemar Eid MD [Primary Care Provider] - - Patient Instructions - Post Discharge Activity
[2017-05-23 22:40] LABS: BASOPHIL 0.7 % (0-2.0); EOSINOPHIL 3.4 % (0-4.5); MCH 28.1 pg (25.7-33.7); MCHC 33.1 g/dl (32.0-35.9); MEAN PLT VOLUME 7.5 fl (7.5-11.1); NEUTROPHILS 61.5 % (42.8-82.8); PLATELET COUNT 318 K/MM3 (134-434); RDW 12.6 % (11.9-15.9); WHITE BLOOD COUNT 6.5 K/mm3 (4.0-10.0)
[2017-05-23 23:18] LABS: ALBUMIN 2.9 g/dl (3.4-5.0); ANION GAP 7 (8-16); BILIRUBIN,TOTAL 0.4 mg/dL (0.2-1.0); CALCIUM 8.5 mg/dL (8.5-10.1); CO2 27 mmol/L (21-32); CREATININE 1.1 mg/dL (0.7-1.3); GLUCOSE,RANDOM 150 mg/dL (74-106); SGOT/AST 14 U/L (15-37); SGPT/ALT 21 U/L (12-78)
[2017-05-23 23:19] LABS: ALK PHOS 83 U/L (45-117); TOT PROT 6.4 g/dl (6.4-8.2)
[2017-05-24] MEDS ORDERED: SODIUM CHLORIDE 0.9% 500 ML INFUS.BAG IV ONE (00:11)
--- NOTE | 2017-05-24 01:38 | HP ---
CHIEF COMPLAINT: Abnormal MRI PCP: Dr. Eid HISTORY OF PRESENT ILLNESS: 57 year old patient with a past medical history of diabetes, hypertension was sent by the oncologist to the ED for evaluation of an abnormal MRI he had done on Friday showing possible osteomyelitis. Patient is s/p L great toe amputation done in august of this year and has since been receiving hyperbaric oxygen treatments here at [facility]. 2-3 weeks ago, patient was admitted to [facility] for swelling of his left leg and lymphadenopathy in his groin. Patient at the time was prescribed antibiotics (the specifics he does not recall), and sent home after the swelling began to subside. Patient says his sugars hover near 120 on average, and that the last A1C he knew he had was 5. Today the patient denies back pain, chest pain, shortness of breath, abdominal pain, fevers, chills, nausea, vomiting. ER course was notable for: (1) EKG NSR without abnormalities (2) Tachycardic at 103 (3) Normocytic, normochromic anemia Recent Travel: None PAST MEDICAL HISTORY: Diabetes, hypertension PAST SURGICAL HISTORY: L great toe amputation Partial R pallux amputation Social History: Smoking: never Alcohol: never Drugs: never Family History: Mother: Diabetes Father: Hypertension Allergies No Known DRUG Allergies Allergy (Verified 05/23/17 19:55) -Has a Cashew nut allergy HOME MEDICATIONS: Home Medications Medication Instructions Recorded Lisinopril [Prinivil] 40 mg PO DAILY #0 tablet 11/25/16 Nifedipine ER [Procardia XL -] 60 mg PO DAILY tab 11/25/16 Glipizide [Glucotrol] 0 mg PO BID 04/08/17 Metformin HCl [Glucophage -] 500 mg PO DAILY 04/08/17 Oxycodone HCl 15 mg PO DAILY 04/08/17 REVIEW OF SYSTEMS CONSTITUTIONAL: Absent: fever, chills, diaphoresis, generalized weakness, malaise, loss of appetite, weight change HEENT: Absent: rhinorrhea, nasal congestion, throat pain, throat swelling, difficulty swallowing, mouth swelling, ear pain, eye pain, visual changes CARDIOVASCULAR: Absent: chest pain, syncope, palpitations, irregular heart rate, lightheadedness , peripheral edema RESPIRATORY: Absent: cough, shortness of breath, dyspnea with exertion, orthopnea, wheezing, stridor, hemoptysis GASTROINTESTINAL: Absent: abdominal pain, abdominal distension, nausea, vomiting, diarrhea, constipation, melena, hematochezia GENITOURINARY: Absent: dysuria, frequency, urgency, hesitancy, hematuria, flank pain, genital pain MUSCULOSKELETAL: myalgia of L posterior thigh radiating to L posterior leg. Absent: arthralgia, joint swelling, back pain, neck pain SKIN: Absent: rash, itching, pallor HEMATOLOGIC/IMMUNOLOGIC: Absent: easy bleeding, easy bruising, lymphadenopathy, frequent infections ENDOCRINE: Absent: unexplained weight gain, unexplained weight loss, heat intolerance, cold intolerance NEUROLOGIC: Absent: headache, focal weakness or paresthesias, dizziness, unsteady gait, seizure, mental status changes, bladder or bowel incontinence PSYCHIATRIC: Absent: anxiety, depression, suicidal or homicidal ideation, hallucinations. PHYSICAL EXAMINATION Vital Signs - 24 hr 05/23/17 19:55 Temperature 98 F Pulse Rate 103 H Respiratory 18 Rate Blood Pressure 191/95 O2 Sat by Pulse 97 Oximetry (%) GENERAL: Awake, alert, and fully oriented, in no acute distress. HEAD: Normal with no signs of trauma. EYES: Pupils equal, round and reactive to light, extraocular movements intact, sclera anicteric, conjunctiva clear. No lid lag. EARS, NOSE, THROAT: Ears normal, nares patent, oropharynx clear without exudates. Moist mucous membranes. NECK: Normal range of motion, supple without lymphadenopathy, JVD, or masses. LUNGS: Breath sounds equal, clear to auscultation bilaterally. No wheezes, and no crackles. No accessory muscle use. HEART: Regular rate and rhythm, normal S1 and S2 without murmur, rub or gallop. ABDOMEN: Soft, nontender, not distended, normoactive bowel sounds, no guarding, no rebound, no masses. No hepatomegaly or splenomegaly. MUSCULOSKELETAL: Normal range of motion at all joints. No bony deformities or tenderness. No CVA tenderness. UPPER EXTREMITIES: 2+ pulses, warm, well-perfused. No cyanosis. No clubbing. No peripheral edema, partial R thumb amputation LOWER EXTREMITIES: 2+ pulses, warm, well-perfused. No calf tenderness. No peripheral edema. NEUROLOGICAL: Cranial nerves II-XII intact. Normal speech. Normal gait. PSYCHIATRIC: Cooperative. Good eye contact. Appropriate mood and affect. SKIN: Warm, dry, normal turgor, no rashes or lesions noted, normal capillary refill. Laboratory Results - last 24 hr 05/23/17 05/23/17 05/23/17 22:31 22:31 22:31 WBC 6.5 RBC 3.20 L Hgb 9.0 L Hct 27.2 L MCV 85.0 MCH 28.1 MCHC 33.1 RDW 12.6 Plt Count 318 D MPV 7.5 Neutrophils % 61.5 D Lymphocytes % 24.5 D Monocytes % 9.9 Eosinophils % 3.4 Basophils % 0.7 ESR 90 H Sodium 143 Potassium 4.4 Chloride 109 H Carbon Dioxide 27 Anion Gap 7 L BUN 24 H Creatinine 1.1 Creat Clearance w eGFR > 60 Random Glucose 150 H Calcium 8.5 Total Bilirubin 0.4 D AST 14 L ALT 21 Alkaline Phosphatase 83 Total Protein 6.4 Albumin 2.9 L ASSESSMENT/PLAN: 57 year old male with a past medical history of diabetes and hypertension presents to the ED after being sent by oncology for abnormal MRI of the spine suggestive of osteomyelitis #Vertebral Osteomyelitis: based on result of MRI, possible bone biopsy to confirm -MRI done 2/2 groin lymphadenopathy and suspicious for osteomyelitis -Consult ID - Dr. Cedeno aware of the case, awaiting ID reccs -no antibiotics currently #Left Hallux Amputation -keep foot wrapped and dry -proper wound care and dressing changes if dressing is removed #Normochromic, Normocytic Anemia: this is patient's baseline -no acute intervention needed -transfuse if hgb <7 #Diabetes Mellitus: pt sugars usually 120, 150 today -insulin sliding scale #Hypertension: Most recently up in the 190s, will start antihypertensives -Nifedipine 60 PO -Lisinopril 40 PO #FEN -No standing fluids -Diabetic diet -Electrolytes wnl #Prophylaxis -heparin 5000subq TID #Disposition -admit to med-surg -full code Visit type - Emergency Visit Emergency Visit: No - New Patient This patient is new to me today: No - Critical Care Critical Care patient: No
[2017-05-24 04:05] VITALS: BMI 29.2
[2017-05-24] MEDS: HEPARIN NA (PORCINE) 5,000 UNITS/ML 1ML VIAL SQ SCH ×3 (05:54→21:49)
[2017-05-24] MEDS: INSULIN SLIDING SCALE (NOVOLOG) 1 VIAL SQ SCH ×4 (06:23→21:50)
[2017-05-24] MEDS ORDERED: metFORMIN HCL 500 MG TABLET (FP) PO SCH (07:00)
[2017-05-24] MEDS ORDERED: glipiZIDE 5 MG TABLET (FP) PO SCH (07:00)
[2017-05-24 07:50] LABS: BASOPHIL 0.7 % (0-2.0); EOSINOPHIL 2.9 % (0-4.5); MCH 27.6 pg (25.7-33.7); MEAN CELL VOLUME 83.7 fl (80-96); MEAN PLT VOLUME 7.4 fl (7.5-11.1); NEUTROPHILS 61.6 % (42.8-82.8); PLATELET COUNT 247 K/MM3 (134-434); RDW 12.7 % (11.9-15.9)
--- NOTE | 2017-05-24 08:10 | PN ---
Teaching Attending Note Name of Resident: Dragan Abdi ATTENDING PHYSICIAN STATEMENT I saw and evaluated the patient. I reviewed the resident's note and discussed the case with the resident. I agree with the resident's findings and plan as documented. SUBJECTIVE: patient is a poor historian, reports being sent for abnormal MRI which was done to evaluate lymph nodes and back pain which he has had intermittently. Currently not in any pain. PMH: HTN, DM1, s/p toe amputation, chronic anemia OBJECTIVE: Gen: A&ox3, NAD HEENT: NC, AT, PERRLA, EOMI CVS: RRR, S1, S2 LUNGS: CTA, No wheeaing Abd: Soft, NT, ND, BS+ no mass Lymph: no lymadenopathy appreciated Ext: nl rom, pulses 2+ and no edema Back: no tenderness or deformity CBCD WBC 6.5 K/mm3 (4.0-10.0) 05/23/17 22:31 RBC 3.20 M/mm3 (4.00-5.60) L 05/23/17 22:31 Hgb 9.0 GM/dL (11.7-16.9) L 05/23/17 22:31 Hct 27.2 % (35.4-49) L 05/23/17 22:31 MCV 85.0 fl (80-96) 05/23/17 22:31 MCHC 33.1 g/dl (32.0-35.9) 05/23/17 22:31 RDW 12.6 % (11.9-15.9) 05/23/17 22:31 Plt Count 318 K/MM3 (134-434) D 05/23/17 22:31 MPV 7.5 fl (7.5-11.1) 05/23/17 22:31 CMP Sodium 143 mmol/L (136-145) 05/23/17 22:31 Potassium 4.4 mmol/L (3.5-5.1) 05/23/17 22:31 Chloride 109 mmol/L (98-107) H 05/23/17 22:31 Carbon Dioxide 27 mmol/L (21-32) 05/23/17 22:31 Anion Gap 7 (8-16) L 05/23/17 22:31 BUN 24 mg/dL (7-18) H 05/23/17 22:31 Creatinine 1.1 mg/dL (0.7-1.3) 05/23/17 22:31 Creat Clearance w eGFR > 60 (>60) 05/23/17 22:31 Random Glucose 150 mg/dL (74-106) H 05/23/17 22:31 Calcium 8.5 mg/dL (8.5-10.1) 05/23/17 22:31 Total Bilirubin 0.4 mg/dL (0.2-1.0) D 05/23/17 22:31 AST 14 U/L (15-37) L 05/23/17 22:31 ALT 21 U/L (12-78) 05/23/17 22:31 Alkaline Phosphatase 83 U/L (45-117) 05/23/17 22:31 Total Protein 6.4 g/dl (6.4-8.2) 05/23/17 22:31 Albumin 2.9 g/dl (3.4-5.0) L 05/23/17 22:31 ASSESSMENT AND PLAN: Osteomyelitis of spine as per MRI Blood cultures ID Consult [id number] RISS ACHS HTn: continue home medications
[2017-05-24 08:11] LABS: ALBUMIN 2.4 g/dl (3.4-5.0); ALK PHOS 64 U/L (45-117); ANION GAP 7 (8-16); BILIRUBIN,TOTAL 0.2 mg/dL (0.2-1.0); CALCIUM 7.9 mg/dL (8.5-10.1); CO2 28 mmol/L (21-32); CREATININE 0.9 mg/dL (0.7-1.3); GLUCOSE,RANDOM 101 mg/dL (74-106); MAGNESIUM 1.9 mg/dL (1.8-2.4); PHOSPHOROUS 4.2 mg/dL (2.5-4.9); SGOT/AST 12 U/L (15-37); SGPT/ALT 19 U/L (12-78); TOT PROT 5.5 g/dl (6.4-8.2)
[2017-05-24 08:20] LABS: INR 1.11 (0.82-1.09); PROTHROMBIN TIME (PATIENT) 12.5 SEC (9.98-11.88)
[2017-05-24 08:22] LABS: ACTIVATED PTT 31.5 SECONDS (26.9-34.4)
[2017-05-24] MEDS ORDERED: PT OWN MED DRAWER 7, Y5N ONE ×2 (09:26→10:11)
--- NOTE | 2017-05-24 09:29 | HOSP ---
Subjective - Review of Symptoms Subjective: c/o spinal pain and RLE pain. states his pain was controlled at home with pain medication. states he was told by oncologist to come to ER for MRI +OM. denies Cp, SOB, fever, chills, N/V/C/D, hematuria, BRBPR, melena Current Medications Generic Name Dose Route Start Last Admin Trade Name Julianoq PRN Reason Stop Dose Admin Heparin Sodium (Porcine) 5,000 unit 05/24/17 06:00 05/24/17 05:54 Heparin - SQ 5,000 unit TID SANGEETHA Administration Insulin Aspart 1 vial 05/24/17 07:00 05/24/17 06:23 Novolog Vial Sliding Scale - SQ Not Given ACHS [facility] Protocol Lisinopril 40 mg 05/24/17 10:00 Prinivil PO DAILY SANGEETHA Nifedipine 60 mg 05/24/17 10:00 Procardia Xl - PO DAILY [facility] Last Vital Signs Temp Pulse Resp BP Pulse Ox 98.3 F 96 H 18 137/78 96 05/24/17 03:32 05/24/17 03:32 05/24/17 03:32 05/24/17 03:32 05/24/17 03:32 General NAD, flat affect CV S1 S2 RRR no murmur/rub/gallop Lungs CTA B/L no wheezing/rales/rhonchi Abdomen soft NT/ND back +bone point tenderness along the lumbar spine to sacrum Extremities R calf tenderness, LLE 2+ pitting edema from knee to foot. foot is wrapped. refused for it be removed CBCD WBC 6.0 K/mm3 (4.0-10.0) 05/24/17 06:45 RBC 2.90 M/mm3 (4.00-5.60) L 05/24/17 06:45 Hgb 8.0 GM/dL (11.7-16.9) L D 05/24/17 06:45 Hct 24.3 % (35.4-49) L 05/24/17 06:45 MCV 83.7 fl (80-96) 05/24/17 06:45 MCHC 33.0 g/dl (32.0-35.9) 05/24/17 06:45 RDW 12.7 % (11.9-15.9) 05/24/17 06:45 Plt Count 247 K/MM3 (134-434) D 05/24/17 06:45 MPV 7.4 fl (7.5-11.1) L 05/24/17 06:45 CMP Sodium 146 mmol/L (136-145) H 05/24/17 06:45 Potassium 4.0 mmol/L (3.5-5.1) 05/24/17 06:45 Chloride 111 mmol/L (98-107) H 05/24/17 06:45 Carbon Dioxide 28 mmol/L (21-32) 05/24/17 06:45 Anion Gap 7 (8-16) L 05/24/17 06:45 BUN 25 mg/dL (7-18) H 05/24/17 06:45 Creatinine 0.9 mg/dL (0.7-1.3) 05/24/17 06:45 Creat Clearance w eGFR > 60 (>60) 05/24/17 06:45 Calcium 7.9 mg/dL (8.5-10.1) L 05/24/17 06:45 Total Bilirubin 0.2 mg/dL (0.2-1.0) D 05/24/17 06:45 AST 12 U/L (15-37) L 05/24/17 06:45 ALT 19 U/L (12-78) 05/24/17 06:45 Alkaline Phosphatase 64 U/L (45-117) D 05/24/17 06:45 Total Protein 5.5 g/dl (6.4-8.2) L 05/24/17 06:45 Albumin 2.4 g/dl (3.4-5.0) L 05/24/17 06:45 A/P 57yo M wtih PMH DM, HTN, PAD, S/P L foot 1st toe amputation presented to the ER with +MRI report 1. Vertebral L4-L5 OM- assoc with bone point tenderness. elevated ESR. verified on PNP that pt was recently prescribed percocet 5/325 prn on 03/07/17. last received oxycodone 15mg in 01/13/17. will re-start percocet prn. can titrate up as needed to optimize pain control. ID consulted for abx treatment. will need PICC for usp abx treatment. 2. RLE calf pain- check doppler to r/o DVT 3. acute on chronic Anemia of chronic disease- likely dilutional. no reports of bleeding. repeat hgb this afternoon. iron studies last admission was noted. 4. b/L inguinal LN- s/p bx was negative for malignancy 04/2017 5. HTN- controlled. cont home medication 6. DM- controlled. last A1c 5. will hold oral agents for now. iss, bgm. can re- start home medications once verified no procedures/images are necessary 7. PVD s/p 1st toe amputation- wrapped. refused evaluation. on HBO treatment. session 11/23. will be on hold while hospitalized 8. DVT ppx- hep sq Physical Examination Vital Signs: Vital Signs Temperature 98.3 F 05/24/17 03:32 Pulse Rate 96 H 05/24/17 03:32 Respiratory Rate 18 05/24/17 03:32 Blood Pressure 137/78 05/24/17 03:32 O2 Sat by Pulse Oximetry (%) 96 05/24/17 03:32 Labs: CBC, BMP 05/24/17 06:45 05/24/17 06:45
[2017-05-24] MEDS: NIFEdipine E.R 60 MG TABLET (UD) PO SCH (10:24)
[2017-05-24] MEDS: LISINOPRIL 20 MG TABLET (FP) PO SCH (10:24)
[2017-05-24] MEDS: oxyCODONE HCL 5 MG TABLET PO PRN ×2 (10:24→17:28)
[2017-05-24] MEDS: ACETAMINOPHEN 325 MG TABLET (FP) PO PRN ×2 (10:25→17:29)
[2017-05-24 13:43] LABS: MCH 27.9 pg (25.7-33.7); MCHC 33.6 g/dl (32.0-35.9); MEAN CELL VOLUME 83.1 fl (80-96); MEAN PLT VOLUME 6.8 fl (7.5-11.1); PLATELET COUNT 256 K/MM3 (134-434); RDW 12.6 % (11.9-15.9); WHITE BLOOD COUNT 5.9 K/mm3 (4.0-10.0)
--- NOTE | 2017-05-24 16:37 | CON.ID ---
Consult Consult Specialty:: infectious diseases Reason for Consultation:: ostop of the spine - History of Present Illness History of Present Illness: 7 year old patient with a past medical history of diabetes, hypertension with abnormal mri done in oncologist office on Friday showing possible osteomyelitis. Patient is s/p L great toe amputation done in august of this year and has since been receiving hyperbaric oxygen treatments here at [facility]. 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[employer] Home Medications - Allergies Allergies/Adverse Reactions: Allergies Allergy/AdvReac Type Severity Reaction Status Date / Time No Known Allergies Allergy Verified 05/23/17 19:55 - Home Medications Home Medications: Ambulatory Orders Lisinopril [Prinivil] 40 mg PO DAILY #0 tablet 11/25/16 Nifedipine ER [Procardia XL -] 60 mg PO DAILY tab 11/25/16 Glipizide [Glucotrol] 5 mg PO BID 04/08/17 Metformin HCl [Glucophage -] 500 mg PO DAILY 04/08/17 Oxycodone HCl 15 mg PO DAILY 04/08/17 Review of Systems - Review of Systems Constitutional: reports: No Symptoms Eyes: reports: No Symptoms HENT: reports: No Symptoms Neck: reports: No Symptoms Cardiovascular: reports: No Symptoms Respiratory: reports: No Symptoms Genitourinary: reports: No Symptoms Musculoskeletal: reports: No Symptoms Integumentary: reports: No Symptoms Neurological: reports: No Symptoms Endocrine: reports: No Symptoms Hematology/Lymphatic: reports: No Symptoms Psychiatric: reports: No Symptoms Physical Exam Vital Signs: Vital Signs Temperature 97.8 F 05/24/17 15:27 Pulse Rate 85 05/24/17 15:27 Respiratory Rate 18 05/24/17 15:27 Blood Pressure 118/64 05/24/17 15:27 O2 Sat by Pulse Oximetry (%) 99 05/24/17 09:00 Constitutional: Yes: Well Nourished, No Distress, Calm Eyes: Yes: Conjunctiva Clear HENT: Yes: Atraumatic Neck: Yes: Supple, Trachea Midline Cardiovascular: Yes: Regular Rate and Rhythm Respiratory: Yes: Regular, CTA Bilaterally Gastrointestinal: Yes: Normal Bowel Sounds, Soft Musculoskeletal: Yes: Other Extremities: Yes: Other Integumentary: Yes: Other Wound/Incision: Yes: Dressing Dry and Intact Neurological: Yes: Alert, Oriented Psychiatric: Yes: Alert, Oriented Labs: CBC, BMP 05/24/17 13:39 05/24/17 06:45 Imaging - Results Chest X-ray: Report Reviewed MRI: Report Reviewed, Image Reviewed Assessment/Plan Vertebral Osteomyelitis Left Hallux Amputation Diabetes Mellitus Hypertension plan no abx at this time will need biopsy of the vertebra before we can decide about the abx
[2017-05-25] MEDS: oxyCODONE HCL 5 MG TABLET PO PRN ×2 (05:25→17:09)
[2017-05-25] MEDS: ACETAMINOPHEN 325 MG TABLET (FP) PO PRN ×2 (05:26→17:09)
[2017-05-25] MEDS: HEPARIN NA (PORCINE) 5,000 UNITS/ML 1ML VIAL SQ SCH ×3 (05:30→21:39)
[2017-05-25] MEDS: INSULIN SLIDING SCALE (NOVOLOG) 1 VIAL SQ SCH ×4 (07:57→21:40)
--- NOTE | 2017-05-25 08:04 | PN ---
Progress Note (short form) - Note Progress Note: NEUROSURGERY CONSULT DICTATED Pt examined History obtained H/o diabetes, hypertension sent in for abnormal MRI result. Patient is s/p L great toe amputation done in08/23 and has been receiving hyperbaric O2. In April, patient was admitted to [facility] for swelling of his left leg and lymphadenopathy in his groin and bx showed only reactive tissue. Patient at the time was prescribed antibiotics (the specifics he does not recall), and sent home after the swelling began to subside. Had low back pain for a couple days. Denies increasing leg weakness numbness. PE: AF, VSS General- L foot dressing, edema L > R Neuro- L DF/PF limited by dressing 3/5; R side 4+-5 at least MRI- R L4-5 disc enhancement including bottom R L4 vertebra and R L4-5 neuroforamen; L5-S2 degenerative disc bulge with mild stenosis WBC 5.9; ESR 90; Cr 0.9 Blood culture pending Prior L foot wound culture- multiple organism both gram + and Gram - No neurosurgical intervention recommended IR input for CT guided biopsy of R L4-5 disc if no other current culture positiveto guide tx CRP baseline ID input for iv abx regimen consideration
[2017-05-25 08:28] LABS: MCH 27.7 pg (25.7-33.7); MEAN PLT VOLUME 7.4 fl (7.5-11.1); PLATELET COUNT 273 K/MM3 (134-434); RDW 12.5 % (11.9-15.9); WHITE BLOOD COUNT 6.1 K/mm3 (4.0-10.0)
--- NOTE | 2017-05-25 08:30 | PN ---
Progress Note (short form) - Note Progress Note: states pain is improved with pain medication. denies Cp, SOB, fever, chills, N?V /C/D Current Medications Generic Name Dose Route Start Last Admin Trade Name Elizabeth PRN Reason Stop Dose Admin Acetaminophen 650 mg 05/24/17 09:56 05/25/17 05:26 Tylenol - PO 650 mg Q6H PRN Administration PAIN LEVEL 6-10 Heparin Sodium (Porcine) 5,000 unit 05/24/17 06:00 05/25/17 05:30 Heparin - SQ 5,000 unit TID SANGEETHA Administration Insulin Aspart 1 vial 05/24/17 07:00 05/25/17 07:57 Novolog Vial Sliding Scale - SQ Not Given ACHS [facility] Protocol Lisinopril 40 mg 05/24/17 10:00 05/24/17 10:24 Prinivil PO 40 mg DAILY SANGEETHA Administration Nifedipine 60 mg 05/24/17 10:00 05/24/17 10:24 Procardia Xl - PO 60 mg DAILY SANGEETHA Administration Oxycodone HCl 10 mg 05/24/17 09:56 05/25/17 05:25 Roxicodone - PO 10 mg Q6H PRN Administration PAIN LEVEL 6-10 Last Vital Signs Temp Pulse Resp BP Pulse Ox 98.3 F 86 20 157/94 99 05/25/17 06:00 05/25/17 06:00 05/25/17 06:00 05/25/17 06:00 05/24/17 09:00 General NAD, flat affect CV S1 S2 RRR no murmur/rub/gallop Lungs CTA B/L no wheezing/rales/rhonchi Abdomen soft NT/ND back +bone point tenderness along the lumbar spine to sacrum Extremities R calf tenderness, LLE 2+ pitting edema from knee to foot. foot is wrapped. refused for it be removed CBCD WBC 6.1 K/mm3 (4.0-10.0) 05/25/17 06:30 RBC 2.98 M/mm3 (4.00-5.60) L 05/25/17 06:30 Hgb 8.2 GM/dL (11.7-16.9) L 05/25/17 06:30 Hct 25.0 % (35.4-49) L 05/25/17 06:30 MCV 84.0 fl (80-96) 05/25/17 06:30 MCHC 33.0 g/dl (32.0-35.9) 05/25/17 06:30 RDW 12.5 % (11.9-15.9) 05/25/17 06:30 Plt Count 273 K/MM3 (134-434) 05/25/17 06:30 MPV 7.4 fl (7.5-11.1) L 05/25/17 06:30 CMP Sodium 144 mmol/L (136-145) 05/25/17 06:30 Potassium 3.9 mmol/L (3.5-5.1) 05/25/17 06:30 Chloride 109 mmol/L (98-107) H 05/25/17 06:30 Carbon Dioxide 26 mmol/L (21-32) 05/25/17 06:30 Anion Gap 9 (8-16) 05/25/17 06:30 BUN 22 mg/dL (7-18) H 05/25/17 06:30 Creatinine 0.9 mg/dL (0.7-1.3) 05/25/17 06:30 Creat Clearance w eGFR > 60 (>60) 05/24/17 06:45 Calcium 7.9 mg/dL (8.5-10.1) L 05/25/17 06:30 Total Bilirubin 0.2 mg/dL (0.2-1.0) D 05/24/17 06:45 AST 12 U/L (15-37) L 05/24/17 06:45 ALT 19 U/L (12-78) 05/24/17 06:45 Alkaline Phosphatase 64 U/L (45-117) D 05/24/17 06:45 Total Protein 5.5 g/dl (6.4-8.2) L 05/24/17 06:45 Albumin 2.4 g/dl (3.4-5.0) L 05/24/17 06:45 Microbiology 05/23/17 22:31 Blood Culture - Preliminary Blood - Peripheral Venous NO GROWTH OBTAINED AFTER 24 HOURS, INCUBATION TO CONTINUE FOR 4 DAYS. 05/23/17 22:31 Blood Culture - Preliminary Blood - Peripheral Venous NO GROWTH OBTAINED AFTER 24 HOURS, INCUBATION TO CONTINUE FOR 4 DAYS. 57yo M wtih PMH DM, HTN, PAD, S/P L foot 1st toe amputation presented to the ER with +MRI report 1. Vertebral L4-L5 OM- assoc with bone point tenderness. improved with pain medication. consulted neurosx for bone bx, would defer to IR for procedure at this time. Will d/w IR tomorrow for Bx. once bx is done can initiate ABx therapy and then wait for cx report for more targeted therapy. will need PICC for residential abx treatment. ID on board 2. RLE calf pain- persists but states it is controlled. states hes had pain for months. doppler neg for DVT 3. acute on chronic Anemia of chronic disease- likely dilutional. no reports of bleeding. Hgb stable. iron studies last admission was noted. 4. b/L inguinal LN- s/p bx was negative for malignancy 04/2017 5. HTN- controlled. cont home medication 6. DM- controlled. last A1c 5. will hold oral agents for now. iss, bgm. can re- start home medications on discharge 7. PVD s/p 1st toe amputation- wrapped. refused evaluation. on HBO treatment. session 11/23. will be on hold while hospitalized 8. DVT ppx- hep sq Visit type - Emergency Visit Emergency Visit: Yes ED Registration Date: 05/24/17 Care time: The patient presented to the Emergency Department on the above date and was hospitalized for further evaluation of their emergent condition. - New Patient This patient is new to me today: No - Critical Care Critical Care patient: No - Discharge Referral Referred to [facility] Med [facility].C[facility] No
[2017-05-25 08:35] LABS: ANION GAP 9 (8-16); CALCIUM 7.9 mg/dL (8.5-10.1); CO2 26 mmol/L (21-32); CREATININE 0.9 mg/dL (0.7-1.3); GLUCOSE,RANDOM 95 mg/dL (74-106)
[2017-05-25 09:01] LABS: C-REACTIVE PROTEIN 0.5 MG/DL (0.00-0.3)
[2017-05-25] MEDS: LISINOPRIL 20 MG TABLET (FP) PO SCH (09:41)
[2017-05-25] MEDS: NIFEdipine E.R 60 MG TABLET (UD) PO SCH (09:41)
[2017-05-25] MEDS ORDERED: INSULIN (NOVOLOG) ASPART 100 UNITS/ML 10ML VIAL ONE (11:48)
--- NOTE | 2017-05-25 23:14 | CONS ---
DATE OF CONSULTATION: 05/25/2017 CHIEF COMPLAINT: Mild lower back pain, rule out discitis/osteomyelitis. HISTORY OF PRESENT ILLNESS: The patient is a 57-year-old, right-handed male with a history of diabetes, hypertension, left great toe amputation, undergoing hyperbaric treatment, who complained of several days' history of intermittent lower back pain. The pain does not radiate down to the legs and he has no increasing leg weakness, numbness, or tingling. He has had chronic swelling of his left leg. About 3 weeks ago, he was admitted for a biopsy of his left groin lymph nodes for lymphadenopathy. The patient was prescribed antibiotics at that time. He stated that his diabetes is under control. He has no fevers or chills at home. He has no loss of bowel or bladder function. PAST MEDICAL HISTORY: Significant for diabetes, hypertension, left toe amputation. CURRENT MEDICATIONS: Include Tylenol, Prinivil, subcutaneous heparin, Procardia, NovoLog, oxycodone. ALLERGIES: No known drug allergies. FAMILY HISTORY: Significant for diabetes in the mother and hypertension in his father. SOCIAL HISTORY: He does not smoke or drink. He does not work. He does not use recreational drugs. REVIEW OF SYSTEMS: Otherwise negative for other major constitutional, head and neck, cardiovascular, pulmonary, gastrointestinal, genitourinary, endocrinological, neurological, or psychological problems except for the above. He states that his diabetes is under satisfactory control and hemoglobin A1c is in the 5 range. PHYSICAL EXAMINATION: Vital signs: Temperature 98.3, blood pressure 157/94 with pulse rate of 84. HEENT: He is normocephalic, atraumatic, and anicteric. Neck: Supple, with no carotid bruits. Core: Regular rhythm. Lungs: Clear bilaterally. Abdomen: Benign. Extremities: Edema to the bilateral extremities, left greater than right. The left foot is wrapped. It is difficult to assess the pulses. Neurologic: She is awake and alert, oriented x4. Cranial nerve examination is intact II-XII. Motor examination shows 4+ to 5/5 strength in the bilateral upper and lower extremities except for left foot dorsiflexion and plantarflexion that is 3+ and limited by his dressing and swelling. Sensory examination shows decreased distal vibratory sensation. Deep tendon reflexes are 1+ throughout. There is no pathologic finding. LABORATORY: Shows a white blood cell count of 5.9, hemoglobin 7.8, hematocrit is 23.4. ESR is 90, INR 1.1, PT is 31.5. Serum sodium is 146, potassium 4.0, BUN 25, creatinine 0.9. Calcium is 7.8, LFTs are normal except for a decreased protein of 5.4 and albumin of 2.4. Lower extremity Doppler was negative for DVT, even though leg edema is noted. MRI of the lumbar spine performed 4 days earlier demonstrated right L4-L5 disc enhancement. There is also enhancement of the bottom half of the right L4 vertebra. The enhancement is noted at the right L4-L5 neural foramen. There is no drainable abscess noted. There is foraminal disc protrusion at the right L4-L5. There is degenerative disc disease at L3-L4 as well as disc bulge at L5-S1 noted with mild S1 nerve root impingement. There is no marked stenosis at any level. IMPRESSION: 1. Rule out right L4-L5 discitis/osteomyelitis. 2. History of left foot cellulitis and left toe amputation with multiple organisms, both gram-positive and gram-negative in the past. 3. Diabetes. 4. Hypertension. RECOMMENDATION: The patient presents with mild intermittent lower back pain for the past couple of days. He has had infection of his left foot previously. He was recently treated with oral antibiotic course for his left inguinal lymphadenopathy by report. His blood cultures are still pending and may not be positive given that he had received recent antibiotics. The MRI of the lumbar spine is consistent with discitis/osteomyelitis, even though the age of which is not clear at this time. If the culture is positive, CT-guided biopsy of the right L4-L5 disc is recommended to better delineate a future treatment course of the potential discitis/osteomyelitis. Presently, the patient has no neurological deficit or significant neurological impingement as a result of infection and no intervention is recommended or indicated. I am also adding CRP to his current laboratory examination. The above was discussed with the patient at bedside. All questions were answered. Continued Infectious Disease consultation and follow up for antibiotic recommendation is recommended. DIMAS ROCHA M.D. SANAZ/[id number]
[2017-05-26] MEDS: oxyCODONE HCL 5 MG TABLET PO PRN ×3 (02:00→20:08)
[2017-05-26] MEDS: ACETAMINOPHEN 325 MG TABLET (FP) PO PRN ×3 (02:01→20:07)
[2017-05-26] MEDS: INSULIN SLIDING SCALE (NOVOLOG) 1 VIAL SQ SCH ×4 (06:13→21:46)
[2017-05-26] MEDS: HEPARIN NA (PORCINE) 5,000 UNITS/ML 1ML VIAL SQ SCH ×2 (06:17→14:22)
--- NOTE | 2017-05-26 08:04 | PN ---
Progress Note (short form) - Note Progress Note: NEUROSURGERY Some mild back pain, but well over all PE: Tmax 98.7, AF, VSS General- L foot dressing, edema L > R Neuro- L DF/PF limited by dressing 3/5; R side 4+-5 at least MRI- R L4-5 disc enhancement including bottom R L4 vertebra and R L4-5 neuroforamen; L5-S2 degenerative disc bulge with mild stenosis WBC 6.1; ESR 90; Cr 0.9; CRP 0.5 Blood culture negative x 48 hours Prior L foot wound culture- multiple organism both gram + and Gram - No neurosurgical intervention recommended IR input for CT guided biopsy of R L4-5 disc as current blood cultures negative in order to determine/guide further tx ID input for iv abx regimen Pt understands the above plan and concurs
[2017-05-26] MEDS: LISINOPRIL 20 MG TABLET (FP) PO SCH (09:12)
[2017-05-26] MEDS: NIFEdipine E.R 60 MG TABLET (UD) PO SCH (09:12)
--- NOTE | 2017-05-26 09:55 | EKG ---
Test Reason : Blood Pressure : / mmHG Vent. Rate : 095 BPM Atrial Rate : 095 BPM P-R Int : 206 ms QRS Dur : 068 ms QT Int : 362 ms P-R-T Axes : 042 004 056 degrees QTc Int : 454 ms NORMAL SINUS RHYTHM NORMAL ECG WHEN COMPARED WITH ECG OF 08-APR-2017 21:46, NO SIGNIFICANT CHANGE WAS FOUND Confirmed by DELTA COY MD ([id number]) on 05/26/2017 9:55:00 AM Referred By: Confirmed By:DELTA COY MD
--- NOTE | 2017-05-26 15:02 | PN ---
Teaching Attending Note Name of Resident: Dragan Abdi ATTENDING PHYSICIAN STATEMENT I saw and evaluated the patient. I reviewed the resident's note and discussed the case with the resident. I agree with the resident's findings and plan as documented. SUBJECTIVE:asymptomatic. continues to have LLE pain but no change in quality or severity for the past 2 months. denies CP, SOB< fever, chills, N/V/C/D OBJECTIVE: Last Vital Signs Temp Pulse Resp BP Pulse Ox 97.9 F 77 18 142/90 95 05/26/17 08:49 05/26/17 14:42 05/26/17 14:42 05/26/17 14:42 05/26/17 14:42 General NAD Extremities trace pitting edema B/L LE ASSESSMENT AND PLAN: 57yo M wtih PMH DM, HTN, PAD, S/P L foot 1st toe amputation presented to the ER with +MRI report 1. Vertebral L4-L5 OM- NPO for IR Bx of vertebral spine today by IR to assess and r/o OM. pain controlled with pain medication. elevated ESR. 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 ID on board 2. RLE calf pain- persists but states it is controlled. states hes had pain for months. doppler neg for DVT 3. acute on chronic Anemia of chronic disease- likely dilutional. no reports of bleeding. Hgb stable. iron studies last admission was noted. 4. b/L inguinal LN- s/p bx was negative for malignancy 04/2017 5. HTN- controlled. cont home medication 6. DM- controlled. last A1c 5. will hold oral agents for now. iss, bgm. can re- start home medications on discharge 7. PVD s/p 1st toe amputation- wrapped. refused evaluation. on HBO treatment. session 11/23. will be on hold while hospitalized 8. DVT ppx- hep sq
--- NOTE | 2017-05-26 15:29 | PN ---
Progress Note, Physician History of Present Illness: patient with post biopsy of the vertebra post procedure stable - Current Medication List Current Medications: Active Medications Acetaminophen (Tylenol -) 650 mg PO Q6H PRN PRN Reason: PAIN LEVEL 6-10 Last Admin: 05/26/17 11:08 Dose: 650 mg Heparin Sodium (Porcine) (Heparin -) 5,000 unit SQ TID [facility] Last Admin: 05/26/17 14:22 Dose: Not Given Insulin Aspart (Novolog Vial Sliding Scale -) 1 vial SQ ACHS [facility] PRN Reason: Protocol Last Admin: 05/26/17 11:16 Dose: Not Given Lisinopril (Prinivil) 40 mg PO DAILY [facility] Last Admin: 05/26/17 09:12 Dose: 40 mg Nifedipine (Procardia Xl -) 60 mg PO DAILY [facility] Last Admin: 05/26/17 09:12 Dose: 60 mg Oxycodone HCl (Roxicodone -) 10 mg PO Q6H PRN PRN Reason: PAIN LEVEL 6-10 Last Admin: 05/26/17 11:07 Dose: 10 mg - Objective Vital Signs: Vital Signs Temperature 97.9 F 05/26/17 08:49 Pulse Rate 77 05/26/17 14:42 Respiratory Rate 18 05/26/17 14:42 Blood Pressure 142/90 05/26/17 14:42 O2 Sat by Pulse Oximetry (%) 95 05/26/17 14:42 Constitutional: Yes: No Distress, Calm Cardiovascular: Yes: Regular Rate and Rhythm Respiratory: Yes: Regular, CTA Bilaterally Gastrointestinal: Yes: Normal Bowel Sounds, Soft Musculoskeletal: Yes: WNL Extremities: Yes: Other Wound/Incision: Yes: Dressing Dry and Intact Neurological: Yes: Alert Psychiatric: Yes: Alert Labs: CBC, BMP 05/25/17 06:30 05/25/17 06:30 INR, PTT INR 1.11 (0.82-1.09) 05/24/17 06:45 Assessment/Plan Vertebral Osteomyelitis Left Hallux Amputation Diabetes Mellitus Hypertension plan will await for the cx results before deciding on what abx to start the patient rest continue current mgmt
--- NOTE | 2017-05-26 16:11 | PN ---
Physical Exam: SUBJECTIVE: Patient seen and examined at bedside. Patient says he has some pain on his leg and some pain that comes and goes in his lower back. Denies fever, chills, nausea, vomiting, chest pain, shortness of breath. OBJECTIVE: Vital Signs Period Temp Pulse Resp BP Sys/Lopez Pulse Ox Last 24 Hr 97.7 F-98.7 F 76-90 14-20 140-174/82-97 95-98 GENERAL: Awake, alert, and fully oriented, in no acute distress. HEAD: Normal with no signs of trauma. LUNGS: Breath sounds equal, clear to auscultation bilaterally. No wheezes, and no crackles. No accessory muscle use. HEART: Regular rate and rhythm, normal S1 and S2 without murmur, rub or gallop. ABDOMEN: Soft, nontender, not distended, normoactive bowel sounds, no guarding, no rebound, no masses. No hepatomegaly or splenomegaly. MUSCULOSKELETAL: Normal range of motion at all joints. No bony deformities or tenderness. No CVA tenderness. UPPER EXTREMITIES: 2+ pulses, warm, well-perfused. No cyanosis. No clubbing. No peripheral edema, partial R thumb amputation LOWER EXTREMITIES: 2+ pulses, warm, well-perfused. Some chronic calf tenderness on L side. No peripheral edema. L great toe amputation NEUROLOGICAL: Cranial nerves II-XII intact. Normal speech. Normal gait. PSYCHIATRIC: Cooperative. Good eye contact. Appropriate mood and affect. SKIN: Warm, dry, normal turgor, no rashes or lesions noted, normal capillary refill. Laboratory Results - last 24 hr 05/25/17 05/25/17 05/26/17 17:05 20:58 05:47 POC Glucometer 127 153 111 05/26/17 11:15 POC Glucometer 115 Active Medications Generic Name Dose Route Start Last Admin Trade Name Freq PRN Reason Stop Dose Admin Acetaminophen 650 mg 05/24/17 09:56 05/26/17 11:08 Tylenol - PO 650 mg Q6H PRN Administration PAIN LEVEL 6-10 Heparin Sodium (Porcine) 5,000 unit 05/24/17 06:00 05/26/17 14:22 Heparin - SQ Not Given TID [facility] Insulin Aspart 1 vial 05/24/17 07:00 05/26/17 11:16 Novolog Vial Sliding Scale - SQ Not Given ACHS [facility] Protocol Lisinopril 40 mg 05/24/17 10:00 05/26/17 09:12 Prinivil PO 40 mg DAILY SANGEETHA Administration Nifedipine 60 mg 05/24/17 10:00 05/26/17 09:12 Procardia Xl - PO 60 mg DAILY SANGEETHA Administration Oxycodone HCl 10 mg 05/24/17 09:56 05/26/17 11:07 Roxicodone - PO 10 mg Q6H PRN Administration PAIN LEVEL 6-10 ASSESSMENT/PLAN: 57 year old male with a past medical history of diabetes and hypertension presents to the ED after being sent by oncology for abnormal MRI of the spine suggestive of osteomyelitis #Vertebral Osteomyelitis: based on result of MRI, possible bone biopsy to confirm -MRI done 2/2 groin lymphadenopathy and suspicious for osteomyelitis -Patient awaiting results of IR guided biopsy of L4-L5 vertebral disk -no antibiotics until results of biopsy come back #Left Hallux Amputation -keep foot wrapped and dry -proper wound care and dressing changes if dressing is removed #Normochromic, Normocytic Anemia: this is patient's baseline -no acute intervention needed -transfuse if hgb <7 #Diabetes Mellitus: pt sugars usually 120, 150 today -insulin sliding scale #Hypertension: Most recently up in the 190s, will start antihypertensives -Nifedipine 60 PO -Lisinopril 40 PO #FEN -No standing fluids -Diabetic diet -Electrolytes wnl #Prophylaxis -heparin 5000subq TID #Disposition -admit to med-surg -full code Visit type - Emergency Visit Emergency Visit: No - New Patient This patient is new to me today: No - Critical Care Critical Care patient: No
[2017-05-27] MEDS: oxyCODONE HCL 5 MG TABLET PO PRN ×4 (04:48→20:51)
[2017-05-27] MEDS: ACETAMINOPHEN 325 MG TABLET (FP) PO PRN ×3 (04:51→20:51)
[2017-05-27] MEDS: INSULIN SLIDING SCALE (NOVOLOG) 1 VIAL SQ SCH ×4 (06:15→21:11)
[2017-05-27] MEDS: HEPARIN NA (PORCINE) 5,000 UNITS/ML 1ML VIAL SQ SCH ×3 (06:24→21:11)
[2017-05-27 07:34] LABS: MCH 27.8 pg (25.7-33.7); MCHC 32.9 g/dl (32.0-35.9); MEAN CELL VOLUME 84.6 fl (80-96); MEAN PLT VOLUME 7.4 fl (7.5-11.1); PLATELET COUNT 285 K/MM3 (134-434); RDW 12.6 % (11.9-15.9); WHITE BLOOD COUNT 6.9 K/mm3 (4.0-10.0)
--- NOTE | 2017-05-27 07:54 | PN ---
Progress Note (short form) - Note Progress Note: NEUROSURGERY s/p IR biopsy Some mild back pain/soreness, but well over all PE: Tmax 98.3, AF, VSS General- L foot dressing, edema L > R Neuro- L DF/PF limited by dressing 3/5; R side 4+-5 at least Blood culture negative x 72 hours Bx gram stain/cultures pending Prior L foot wound culture- multiple organism both gram + and Gram - ID input for iv abx regimen once biopsy/culture result available Pt understands the above plan and concurs
[2017-05-27 07:57] LABS: ANION GAP 5 (8-16); CALCIUM 7.9 mg/dL (8.5-10.1); CO2 29 mmol/L (21-32); CREATININE 0.9 mg/dL (0.7-1.3); GLUCOSE,RANDOM 120 mg/dL (74-106)
[2017-05-27] MEDS: LISINOPRIL 20 MG TABLET (FP) PO SCH (09:37)
[2017-05-27] MEDS: NIFEdipine E.R 60 MG TABLET (UD) PO SCH (09:37)
--- NOTE | 2017-05-27 13:31 | PN ---
Progress Note, Physician History of Present Illness: patient stable doing well still awaiting for final cx - Current Medication List Current Medications: Active Medications Acetaminophen (Tylenol -) 650 mg PO Q6H PRN PRN Reason: PAIN LEVEL 6-10 Last Admin: 05/27/17 04:51 Dose: 650 mg Collagenase (Santyl -) 1 applic TP DAILY [facility] Heparin Sodium (Porcine) (Heparin -) 5,000 unit SQ TID [facility] Last Admin: 05/27/17 06:24 Dose: 5,000 unit Insulin Aspart (Novolog Vial Sliding Scale -) 1 vial SQ ACHS [facility] PRN Reason: Protocol Last Admin: 05/27/17 12:09 Dose: 2 units Lisinopril (Prinivil) 40 mg PO DAILY [facility] Last Admin: 05/27/17 09:37 Dose: 40 mg Nifedipine (Procardia Xl -) 60 mg PO DAILY [facility] Last Admin: 05/27/17 09:37 Dose: 60 mg Oxycodone HCl (Roxicodone -) 5 mg PO Q6H PRN PRN Reason: PAIN - Objective Vital Signs: Vital Signs Temperature 98.0 F 05/27/17 10:11 Pulse Rate 79 05/27/17 10:11 Respiratory Rate 19 05/27/17 10:11 Blood Pressure 149/91 05/27/17 10:11 O2 Sat by Pulse Oximetry (%) 93 L 05/26/17 21:00 Constitutional: Yes: No Distress, Calm Cardiovascular: Yes: Regular Rate and Rhythm Respiratory: Yes: Regular, CTA Bilaterally Gastrointestinal: Yes: Normal Bowel Sounds, Soft Musculoskeletal: Yes: Other Extremities: Yes: Other Wound/Incision: Yes: Dressing Dry and Intact Neurological: Yes: Alert, Oriented Psychiatric: Yes: Alert, Oriented Labs: CBC, BMP 05/27/17 06:00 05/27/17 06:00 INR, PTT INR 1.11 (0.82-1.09) 05/24/17 06:45 Assessment/Plan Vertebral Osteomyelitis Left Hallux Amputation Diabetes Mellitus Hypertension plan awaiting cx reports patient will need senior care abx decision after the cx
--- NOTE | 2017-05-27 14:20 | MSN ---
Progress Note (short form) - Note Progress Note: SUBJECTIVE: Pt is a 57 y/o M with PMhx of DM, HTN, L hallux amputation (09/20) who presented to the ED with low back pain after being sent by heme/onc s/p abnormal MRI results suggestive of osteomyelitis. Pt had a non-healing ulcer and osteomyelitis of the L toe earlier this year for which he was treated with abx and L hallux amputation. Pt was admitted again 2-3 weeks ago for R lower leg swelling and bilateral groin lymphadenopathy. During the course of the treatment, an MRI of the spine was also ordered. Pt was called back to the ED upon receiving abnormal results. Pt was afebrile overnight and no acute events were reported. Pt looked well this morning and not in any acute distress. Complained of some dull ache in the low back that has been present for a couple of days now. Pain is worse at rest and is better with movement. After the bone biopsy yesterday, the pain was sharp and radiated down the R leg to the top of the knee but this AM was a non-radiating, 6/10 pain. Denies any CP, SOB, palpitations, numbness, tingling, fever, chills, N/V, constipation, diarrhea, dysuria, frequency, or urgency. OBJECTIVE Last Vital Signs Temp Pulse Resp BP Pulse Ox 98.0 F 79 19 149/91 93 L 05/27/17 10:11 05/27/17 10:11 05/27/17 10:11 05/27/17 10:11 05/26/17 21:00 GEN: AOX3, NAD HEENT: PERRLA, EOMI CV: RRR S1 S2 No MRG LUNG: bibasilar crackles ABD: +bowel sounds, soft, ND, NT MSK: no point tenderness of the spine except for R lumbar area where the biopsy was conducted; pitting edema of the ankles and legs L>R; pulses and sensation intact; 5/5 muscle strength LE b/l; L hallux amputation; partial R pollex amputation NEURO: CN II-XII grossly intact LABS Laboratory Last Values WBC 6.9 K/mm3 (4.0-10.0) 05/27/17 06:00 RBC 3.11 M/mm3 (4.00-5.60) L 05/27/17 06:00 Hgb 8.6 GM/dL (11.7-16.9) L 05/27/17 06:00 Hct 26.3 % (35.4-49) L 05/27/17 06:00 MCV 84.6 fl (80-96) 05/27/17 06:00 MCH 27.8 pg (25.7-33.7) 05/27/17 06:00 MCHC 32.9 g/dl (32.0-35.9) 05/27/17 06:00 RDW 12.6 % (11.9-15.9) 05/27/17 06:00 Plt Count 285 K/MM3 (134-434) 05/27/17 06:00 MPV 7.4 fl (7.5-11.1) L 05/27/17 06:00 Neutrophils % 61.6 % (42.8-82.8) 05/24/17 06:45 Lymphocytes % 23.3 % (8-40) 05/24/17 06:45 Monocytes % 11.5 % (3.8-10.2) H 05/24/17 06:45 Eosinophils % 2.9 % (0-4.5) 05/24/17 06:45 Basophils % 0.7 % (0-2.0) 05/24/17 06:45 ESR 90 mm/hr (0-20) H 05/23/17 22:31 PT with INR 12.50 SEC (9.98-11.88) H 05/24/17 06:45 INR 1.11 (0.82-1.09) 05/24/17 06:45 PTT (Actin FS) 31.5 SECONDS (26.9-34.4) 05/24/17 06:45 Sodium 143 mmol/L (136-145) 05/27/17 06:00 Potassium 4.2 mmol/L (3.5-5.1) 05/27/17 06:00 Chloride 109 mmol/L (98-107) H 05/27/17 06:00 Carbon Dioxide 29 mmol/L (21-32) 05/27/17 06:00 Anion Gap 5 (8-16) L 05/27/17 06:00 BUN 29 mg/dL (7-18) H D 05/27/17 06:00 Creatinine 0.9 mg/dL (0.7-1.3) 05/27/17 06:00 Creat Clearance w eGFR > 60 (>60) 05/24/17 06:45 POC Glucometer 165 UNITS (80-120) 05/27/17 12:08 Random Glucose 120 mg/dL (74-106) H D 05/27/17 06:00 Calcium 7.9 mg/dL (8.5-10.1) L 05/27/17 06:00 Phosphorus 4.2 mg/dL (2.5-4.9) 05/24/17 06:45 Magnesium 1.9 mg/dL (1.8-2.4) 05/24/17 06:45 Total Bilirubin 0.2 mg/dL (0.2-1.0) D 05/24/17 06:45 AST 12 U/L (15-37) L 05/24/17 06:45 ALT 19 U/L (12-78) 05/24/17 06:45 Alkaline Phosphatase 64 U/L (45-117) D 05/24/17 06:45 C-Reactive Protein 0.5 MG/DL (0.00-0.3) H D 05/25/17 06:30 Total Protein 5.5 g/dl (6.4-8.2) L 05/24/17 06:45 Albumin 2.4 g/dl (3.4-5.0) L 05/24/17 06:45 Blood Type O NEGATIVE 05/25/17 06:30 Antibody Screen Negative 05/25/17 06:30 HOME MEDS Home Medications Medication Instructions Recorded Lisinopril [Prinivil] 40 mg PO DAILY #0 tablet 11/25/16 Nifedipine ER [Procardia XL -] 60 mg PO DAILY tab 11/25/16 Glipizide [Glucotrol] 5 mg PO BID 04/08/17 Metformin HCl [Glucophage -] 500 mg PO DAILY 04/08/17 Oxycodone HCl 15 mg PO DAILY 04/08/17 A/P Pt is a 57 y/o M with PMhx of DM, HTN, and L hallux amputation presented to the ED with after being sent to heme/onc for abnormal MRI results suggestive of osteomyelitis. 1. Vertebral osteomyelitis -based on MRI results, done 2/2 to groin lymphadenopathy and concern for malignancy -Pending results of IR guided bone biopsy of L3-L5 vertebral disk -Per ID, most likely due to small vessel disease and lack of blood supply to vertebrae due to DM -ID on board and will determine the course of abx upon biopsy results -bone gram stain neg, no aerobic growth, pending anaerobic results 2. L hallux amputation -apligraft on 05/23 -vascular consulted and will decide the dressing schedule and appropriate wound care 3. Low back pain -2/2 to verterbral osteomyelitis and bone biopsy -pain control with oxycodone and tylenelol 4. Normocytic normochromic anemia -baseline for pt -transfuse if Hb < 7 5. DM -sugars usually around 120s, last HbA1c 5 -ISS -metformin and glipizide at home 6. HTN -continue home meds - nifedipine and lisinopril 7. FEN -no IVFs -lytes wnl; continue monitoring -regular diet 11. PPx -DVT: heparin SQ 5000u TID -No GI ppx Dispo: Continue monitoring; future plan of care can be determined once bone biopsy results are received Tamanna Ponce, MS3
[2017-05-27] MEDS ORDERED: INSULIN DETEMIR 100 UNITS/ML MDV SQ ONE (14:47)
[2017-05-27] MEDS ORDERED: INSULIN (NOVOLOG) ASPART 100 UNITS/ML 10ML VIAL ONE ×2 (14:47→20:59)
--- NOTE | 2017-05-27 15:53 | PN ---
Teaching Attending Note Name of Resident: Dragan Abdi ATTENDING PHYSICIAN STATEMENT Time of evaluation: 10:00 AM I saw and evaluated the patient. I reviewed the resident's note and discussed the case with the resident. I agree with the resident's findings and plan as documented. SUBJECTIVE: Patient seen and examined. Reports low back pain dull, non radiating for last 2- 3 days. Had some pain radiating RLE after the bone biopsy that is now resolved. Pain improved with movements, worse at rest. No urinary or bowel symptoms, no leg pain/weakness/tingling noted. Left foot symptoms stable. No new fevers/ chills. OBJECTIVE: Vital Signs Period Temp Pulse Resp BP Sys/Lopez Pulse Ox Last 24 Hr 97.2 F-98.3 F 70-92 18-20 136-159/77-95 93 Intake & Output 05/24/17 05/25/17 05/26/17 05/27/17 23:59 23:59 23:59 23:59 Intake Total 300 830 400 Balance 300 830 400 Weight 228 lb GEneral: lying in bed in no acute distress Musculoskeletal: no spinal tenderness noted LE power 5/5, SLR negative bilaterally Extremities LLE dressing with minimal surrounding swelling, no erythema Home Medication List Medication Instructions Recorded Confirmed Type Glipizide [Glucotrol] 5 mg PO BID 04/08/17 05/24/17 History Metformin HCl [Glucophage -] 500 mg PO DAILY 04/08/17 05/24/17 History Oxycodone HCl 15 mg PO DAILY 04/08/17 05/24/17 History Active Medications Generic Name Dose Route Start Last Admin Trade Name Elizabeth PRN Reason Stop Dose Admin Acetaminophen 650 mg 05/24/17 09:56 05/27/17 13:53 Tylenol - PO 650 mg Q6H PRN Administration PAIN LEVEL 6-10 Collagenase 1 applic 05/28/17 10:00 Santyl - TP DAILY SANGEETHA Heparin Sodium (Porcine) 5,000 unit 05/24/17 06:00 05/27/17 13:45 Heparin - SQ 5,000 unit TID SANGEETHA Administration Insulin Aspart 1 vial 05/24/17 07:00 05/27/17 12:09 Novolog Vial Sliding Scale - SQ 2 units ACHS SANGEETHA Administration Protocol Lisinopril 40 mg 05/24/17 10:00 05/27/17 09:37 Prinivil PO 40 mg DAILY SANGEETHA Administration Nifedipine 60 mg 05/24/17 10:00 05/27/17 09:37 Procardia Xl - PO 60 mg DAILY SANGEETHA Administration Oxycodone HCl 5 mg 05/27/17 13:25 05/27/17 13:52 Roxicodone - PO 5 mg Q6H PRN Administration PAIN Lab Results WBC 6.9 K/mm3 (4.0-10.0) 05/27/17 06:00 RBC 3.11 M/mm3 (4.00-5.60) L 05/27/17 06:00 Hgb 8.6 GM/dL (11.7-16.9) L 05/27/17 06:00 Hct 26.3 % (35.4-49) L 05/27/17 06:00 MCV 84.6 fl (80-96) 05/27/17 06:00 MCHC 32.9 g/dl (32.0-35.9) 05/27/17 06:00 RDW 12.6 % (11.9-15.9) 05/27/17 06:00 Plt Count 285 K/MM3 (134-434) 05/27/17 06:00 Sodium 143 mmol/L (136-145) 05/27/17 06:00 Potassium 4.2 mmol/L (3.5-5.1) 05/27/17 06:00 Chloride 109 mmol/L (98-107) H 05/27/17 06:00 Carbon Dioxide 29 mmol/L (21-32) 05/27/17 06:00 Anion Gap 5 (8-16) L 05/27/17 06:00 BUN 29 mg/dL (7-18) H D 05/27/17 06:00 Creatinine 0.9 mg/dL (0.7-1.3) 05/27/17 06:00 Random Glucose 120 mg/dL (74-106) H D 05/27/17 06:00 Calcium 7.9 mg/dL (8.5-10.1) L 05/27/17 06:00 Blood Type O NEGATIVE 05/25/17 06:30 Antibody Screen Negative 05/25/17 06:30 INR 1.11 (0.82-1.09) 05/24/17 06:45 Microbiology 05/26/17 15:00 Bone CHARLES Preparation - Preliminary 05/26/17 15:00 Bone Fungal Culture - Preliminary 05/26/17 15:00 Bone Gram Stain - Final 05/26/17 15:00 Bone Tissue Culture - Preliminary NO AEROBIC GROWTH, 24 HRS 05/26/17 15:00 Bone AFB Smear Concentration - Preliminary 05/26/17 15:00 Bone Mycobacterial Culture - Preliminary 05/23/17 22:31 Blood - Peripheral Venous Blood Culture - Preliminary NO GROWTH OBTAINED AFTER 72 HOURS, INCUBATION TO CONTINUE FOR 2 DAYS. 05/23/17 22:31 Blood - Peripheral Venous Blood Culture - Preliminary NO GROWTH OBTAINED AFTER 72 HOURS, INCUBATION TO CONTINUE FOR 2 DAYS. ASSESSMENT AND PLAN: 57yo M wtih PMH DM, HTN, PAD, S/P L foot 1st toe amputation presented to the ER with +MRI report -Suspected L4-L5 osteomyelitis -Acute on chronic anemia of chronic disease, no clinical evidence of bleed -PVD s/p left 1st toe amputation -Recent LLE cellulitis -Bilateral inguinal lymphadenopathy -HTN -DM, last A1c 5 Plan: Follow up bone biopsy results. ID input appreciated. hold off on antibiotics for now. Blood cultures neg so far. Neurosurgery input appreciated. No new neurological concerns. Will place on neuro checks. Vascular surgery consult for LLE wound care and dressing changes/recs. Pain control with oxycodone/acetaminophen, add bowel regimen. Continue home lisinopril/nifedipine DVTPPX with heparin Dispo planning pending bone biopsy results, ID input and clinical improvement. Plan discussed with patient in detail, all questions answered.
[2017-05-27] MEDS ORDERED: POLYETHYLENE GLYCOL 3350 119 GM BTL PO PRN (15:54)
--- NOTE | 2017-05-27 16:47 | PN ---
Physical Exam: SUBJECTIVE: Patient seen and examined at bedside. Patient is s/p biopsy of the intervertebral space for suspected osteomyelitis. Patient states that he has some residual back pain, mostly at rest that improves when he moves. Denies chest pain, abdominal pain, OBJECTIVE: Vital Signs Period Temp Pulse Resp BP Sys/Lopez Pulse Ox Last 24 Hr 97.3 F-98.3 F 71-92 19-20 136-159/77-95 93-97 GENERAL: Awake, alert, and fully oriented, in no acute distress. HEAD: Normal with no signs of trauma. LUNGS: Breath sounds equal, clear to auscultation bilaterally. No wheezes, and no crackles. No accessory muscle use. HEART: Regular rate and rhythm, normal S1 and S2 without murmur, rub or gallop. ABDOMEN: Soft, nontender, not distended, normoactive bowel sounds, no guarding, no rebound, no masses. No hepatomegaly or splenomegaly. MUSCULOSKELETAL: Normal range of motion at all joints. No bony deformities or tenderness. No CVA tenderness. UPPER EXTREMITIES: 2+ pulses, warm, well-perfused. No cyanosis. No clubbing. No peripheral edema, partial R thumb amputation LOWER EXTREMITIES: 2+ pulses, warm, well-perfused. No calf tenderness No peripheral edema. L great toe amputation NEUROLOGICAL: Cranial nerves II-XII intact. Normal speech. Normal gait. PSYCHIATRIC: Cooperative. Good eye contact. Appropriate mood and affect. SKIN: Warm, dry, normal turgor, no rashes or lesions noted, normal capillary refill. Laboratory Results - last 24 hr 05/26/17 05/26/17 05/27/17 17:41 21:44 05:45 WBC RBC Hgb Hct MCV MCH MCHC RDW Plt Count MPV Sodium Potassium Chloride Carbon Dioxide Anion Gap BUN Creatinine POC Glucometer 185 197 133 Random Glucose Calcium 05/27/17 05/27/17 05/27/17 06:00 06:00 12:08 WBC 6.9 RBC 3.11 L Hgb 8.6 L Hct 26.3 L MCV 84.6 MCH 27.8 MCHC 32.9 RDW 12.6 Plt Count 285 MPV 7.4 L Sodium 143 Potassium 4.2 Chloride 109 H Carbon Dioxide 29 Anion Gap 5 L BUN 29 H D Creatinine 0.9 POC Glucometer 165 Random Glucose 120 H D Calcium 7.9 L Active Medications Generic Name Dose Route Start Last Admin Trade Name Freq PRN Reason Stop Dose Admin Acetaminophen 650 mg 05/24/17 09:56 05/27/17 13:53 Tylenol - PO 650 mg Q6H PRN Administration PAIN LEVEL 6-10 Collagenase 1 applic 05/28/17 10:00 Santyl - TP DAILY SANGEETHA Docusate Sodium 100 mg 05/27/17 16:00 Colace - PO BID SANGEETHA Heparin Sodium (Porcine) 5,000 unit 05/24/17 06:00 05/27/17 13:45 Heparin - SQ 5,000 unit TID SANGEETHA Administration Insulin Aspart 1 vial 05/24/17 07:00 05/27/17 12:09 Novolog Vial Sliding Scale - SQ 2 units ACHS SANGEETHA Administration Protocol Lisinopril 40 mg 05/24/17 10:00 05/27/17 09:37 Prinivil PO 40 mg DAILY SANGEETHA Administration Nifedipine 60 mg 05/24/17 10:00 05/27/17 09:37 Procardia Xl - PO 60 mg DAILY SANGEETHA Administration Oxycodone HCl 5 mg 05/27/17 13:25 05/27/17 13:52 Roxicodone - PO 5 mg Q6H PRN Administration PAIN Polyethylene Glycol 17 gm 05/27/17 15:54 Miralax (For Daily Use) - PO DAILY PRN CONSTIPATION ASSESSMENT/PLAN: 57 year old male with a past medical history of diabetes and hypertension presents to the ED after being sent by oncology for abnormal MRI of the spine suggestive of osteomyelitis. #Vertebral Osteomyelitis: based on result of MRI, bone biopsy performed today -MRI done 2/2 groin lymphadenopathy and suspicious for osteomyelitis -initial gram stain of bone biopsy was negative for infection -d/w dr fuller, will need picc line for outpatient antibiotic therapy -Patient awaiting results of IR guided biopsy of L4-L5 vertebral disk -no antibiotics until results of biopsy come back -roxicodone prn #Left Hallux Amputation -keep foot wrapped and dry -consult dr krause for foot wound -proper wound care and dressing changes if dressing is removed -santyl #Normochromic, Normocytic Anemia: this is patient's baseline -no acute intervention needed -transfuse if hgb <7 #Diabetes Mellitus: pt sugars usually 120, 150 today -insulin sliding scale #Hypertension: Most recently up in the 190s, will start antihypertensives -Nifedipine 60 PO -Lisinopril 40 PO #FEN -No standing fluids -Diabetic diet -Electrolytes wnl #Prophylaxis -heparin 5000subq TID #Disposition -admit to med-surg -full code Visit type - Emergency Visit Emergency Visit: No - New Patient This patient is new to me today: No - Critical Care Critical Care patient: No
[2017-05-27] MEDS: DOCUSATE SODIUM 100 MG CAPSULE (FP) PO SCH ×2 (17:00→21:11)
[2017-05-28] MEDS: oxyCODONE HCL 5 MG TABLET PO PRN ×2 (05:05→15:49)
[2017-05-28] MEDS: ACETAMINOPHEN 325 MG TABLET (FP) PO PRN ×2 (05:05→15:55)
[2017-05-28] MEDS: HEPARIN NA (PORCINE) 5,000 UNITS/ML 1ML VIAL SQ SCH ×3 (06:17→21:35)
[2017-05-28] MEDS: INSULIN SLIDING SCALE (NOVOLOG) 1 VIAL SQ SCH ×4 (06:17→21:34)
--- NOTE | 2017-05-28 08:53 | PN ---
Progress Note (short form) - Note Progress Note: NEUROSURGERY Tolerating diet Some mild back pain/soreness, but well over all No new complaint PE: Tmax 98.5, AF, VSS General- L foot dressing, edema L > R Neuro- L DF/PF limited by dressing 3/5; R side 4+-5 at least Blood culture negative x 96hrs Bx culture negative x 24 hrs Prior L foot wound culture- multiple organism both gram + and Gram - ID input for iv abx regimen Emperic treatment likely warranted given prior foot infection, DM and MRI appearance Pt understands the above plan and concurs
--- NOTE | 2017-05-28 09:44 | PN ---
Progress Note (short form) - Note Progress Note: Vascular Surgery Neurosurgery note appreciated. Left foot wound -- clean, pink, good granulation. Cont santyl daily to wound. Pt will likely need empiric treatment for spine. Pt can follow up in wound care clinic upon DC. Might be candidate for HBO Luis Manuel Ponce DO
[2017-05-28] MEDS: NIFEdipine E.R 60 MG TABLET (UD) PO SCH (11:07)
[2017-05-28] MEDS: LISINOPRIL 20 MG TABLET (FP) PO SCH (11:07)
[2017-05-28] MEDS: DOCUSATE SODIUM 100 MG CAPSULE (FP) PO SCH ×2 (11:07→21:34)
--- NOTE | 2017-05-28 13:47 | MSN ---
Progress Note (short form) - Note Progress Note: SUBJECTIVE: Pt is a 57 y/o M with PMhx of DM, HTN, L hallux amputation (09/20) who presented to the ED with low back pain after being sent by heme/onc s/p abnormal MRI results suggestive of osteomyelitis. Pt had a non-healing ulcer and osteomyelitis of the L toe earlier this year for which he was treated with abx and L hallux amputation. Pt was admitted again 2-3 weeks ago for R lower leg swelling and bilateral groin lymphadenopathy. During the course of the treatment, an MRI of the spine was also ordered. Pt was called back to the ED upon receiving abnormal results. Pt was afebrile overnight and pt reported some back and L foot pain. Was given oxycodone and tylenolol which relieved the pain. Pt looked well this morning and not in any acute distress. Complained of some pain in the low back that kept him up at night. Described the pain as 4/10 non- radiating, dull ache that is present in the lower lumbar area; more prominent on the R than L side. Denies any CP, SOB, palpitations, numbness, tingling, fever, chills, N/V, constipation, diarrhea, dysuria, frequency, or urgency. OBJECTIVE Last Vital Signs Temp Pulse Resp BP Pulse Ox 97.7 F 87 20 178/98 96 05/28/17 09:15 05/28/17 09:15 05/28/17 09:15 05/28/17 09:15 05/28/17 09:00 GEN: AOX3, NAD HEENT: PERRLA, EOMI CV: RRR S1 S2 No MRG LUNG: CTA b/l ABD: +bowel sounds, soft, ND, NT MSK: no point tenderness of the spine except for R lumbar area where the biopsy was conducted; pitting edema of the ankles and legs L>R; pulses and sensation intact; 2+ patellar reflex b/l; 5/5 muscle strength LE b/l; L hallux amputation with dressing intact - mild swelling around the area; partial R pollex amputation NEURO: CN II-XII grossly intact Laboratory Last Values WBC 6.9 K/mm3 (4.0-10.0) 05/27/17 06:00 RBC 3.11 M/mm3 (4.00-5.60) L 05/27/17 06:00 Hgb 8.6 GM/dL (11.7-16.9) L 05/27/17 06:00 Hct 26.3 % (35.4-49) L 05/27/17 06:00 MCV 84.6 fl (80-96) 05/27/17 06:00 MCH 27.8 pg (25.7-33.7) 05/27/17 06:00 MCHC 32.9 g/dl (32.0-35.9) 05/27/17 06:00 RDW 12.6 % (11.9-15.9) 05/27/17 06:00 Plt Count 285 K/MM3 (134-434) 05/27/17 06:00 MPV 7.4 fl (7.5-11.1) L 05/27/17 06:00 Neutrophils % 61.6 % (42.8-82.8) 05/24/17 06:45 Lymphocytes % 23.3 % (8-40) 05/24/17 06:45 Monocytes % 11.5 % (3.8-10.2) H 05/24/17 06:45 Eosinophils % 2.9 % (0-4.5) 05/24/17 06:45 Basophils % 0.7 % (0-2.0) 05/24/17 06:45 ESR 90 mm/hr (0-20) H 05/23/17 22:31 PT with INR 12.50 SEC (9.98-11.88) H 05/24/17 06:45 INR 1.11 (0.82-1.09) 05/24/17 06:45 PTT (Actin FS) 31.5 SECONDS (26.9-34.4) 05/24/17 06:45 Sodium 143 mmol/L (136-145) 05/27/17 06:00 Potassium 4.2 mmol/L (3.5-5.1) 05/27/17 06:00 Chloride 109 mmol/L (98-107) H 05/27/17 06:00 Carbon Dioxide 29 mmol/L (21-32) 05/27/17 06:00 Anion Gap 5 (8-16) L 05/27/17 06:00 BUN 29 mg/dL (7-18) H D 05/27/17 06:00 Creatinine 0.9 mg/dL (0.7-1.3) 05/27/17 06:00 Creat Clearance w eGFR > 60 (>60) 05/24/17 06:45 POC Glucometer 183 UNITS (80-120) 05/28/17 11:51 Random Glucose 120 mg/dL (74-106) H D 05/27/17 06:00 Calcium 7.9 mg/dL (8.5-10.1) L 05/27/17 06:00 Phosphorus 4.2 mg/dL (2.5-4.9) 05/24/17 06:45 Magnesium 1.9 mg/dL (1.8-2.4) 05/24/17 06:45 Total Bilirubin 0.2 mg/dL (0.2-1.0) D 05/24/17 06:45 AST 12 U/L (15-37) L 05/24/17 06:45 ALT 19 U/L (12-78) 05/24/17 06:45 Alkaline Phosphatase 64 U/L (45-117) D 05/24/17 06:45 C-Reactive Protein 0.5 MG/DL (0.00-0.3) H D 05/25/17 06:30 Total Protein 5.5 g/dl (6.4-8.2) L 05/24/17 06:45 Albumin 2.4 g/dl (3.4-5.0) L 05/24/17 06:45 Blood Type O NEGATIVE 05/25/17 06:30 Antibody Screen Negative 05/25/17 06:30 Microbiology 05/26/17 15:00 Bone Gram Stain - Final 05/26/17 15:00 Bone Tissue Culture - Final NO GROWTH OF AEROBIC ORGANISMS AFTER 48 HOURS INCUBATION 05/26/17 15:00 Bone Anaerobic Culture - Final NO ANAEROBES WERE ISOLATED 05/26/17 15:00 Bone AFB Smear Concentration - Final 05/26/17 15:00 Bone Mycobacterial Culture - Preliminary 05/23/17 22:31 Blood - Peripheral Venous Blood Culture - Preliminary NO GROWTH OBTAINED AFTER 96 HOURS, INCUBATION TO CONTINUE FOR 1 DAYS. 05/23/17 22:31 Blood - Peripheral Venous Blood Culture - Preliminary NO GROWTH OBTAINED AFTER 96 HOURS, INCUBATION TO CONTINUE FOR 1 DAYS. 05/26/17 15:00 Bone CHARLES Preparation - Preliminary 05/26/17 15:00 Bone Fungal Culture - Preliminary Home Medications Medication Instructions Recorded Lisinopril [Prinivil] 40 mg PO DAILY #0 tablet 11/25/16 Nifedipine ER [Procardia XL -] 60 mg PO DAILY tab 11/25/16 Glipizide [Glucotrol] 5 mg PO BID 04/08/17 Metformin HCl [Glucophage -] 500 mg PO DAILY 04/08/17 Oxycodone HCl 15 mg PO DAILY 04/08/17 A/P Pt is a 57 y/o M with PMhx of DM, HTN, and L hallux amputation presented to the ED with after being sent to heme/onc for abnormal MRI results suggestive of osteomyelitis. 1. Vertebral osteomyelitis -based on MRI results, done 22 to groin lymphadenopathy and concern for malignancy -Pending results of IR guided bone biopsy of L3-L5 vertebral disk -Per ID, most likely due to small vessel disease and lack of blood supply to vertebrae due to DM -ID on board and will determine the course of abx upon biopsy results -per neurosurgery, vascular surgery, and ID, empiric tx will likely be beneficial given prior foot infection, and DM 2. L hallux amputation -apligraft on 05/23 -per vascular surgery, L foot healing well, cont santyl daily, follow up in clinic upon DC 3. Low back pain -2/2 to vertebral osteomyelitis and bone biopsy -pain control with oxycodone and tylenelol 4. Normocytic normochromic anemia -baseline for pt -transfuse if Hb < 7 5. DM -sugars usually around 120s, last HbA1c 5 -ISS -metformin and glipizide at home 6. HTN -continue home meds - nifedipine and lisinopril 7. FEN -no IVFs -lytes wnl; continue monitoring -regular diet 11. PPx -DVT: heparin SQ 5000u TID -No GI ppx Dispo: Continue monitoring; future plan of care can be determined once bone biopsy results are received Tamanna Ponce, MS3
[2017-05-28] MEDS: COLLAGENASE CLOSTRIDIUM HIST. 30 GRAMS TUBE TP SCH (15:02)
--- NOTE | 2017-05-28 15:39 | PN ---
Teaching Attending Note Name of Resident: Dragan Abdi ATTENDING PHYSICIAN STATEMENT Time of evaluation: 10:30 AM I saw and evaluated the patient. I reviewed the resident's note and discussed the case with the resident. I agree with the resident's findings and plan as documented. SUBJECTIVE: Patient seen and examined. Low back pain unchanged, improved with activity, no new leg symptoms. OBJECTIVE: Vital Signs Period Temp Pulse Resp BP Sys/Lopez Pulse Ox Last 24 Hr 97.7 F-98.5 F 86-92 18-20 147-178/83-98 95-96 Intake & Output 05/25/17 05/26/17 05/27/17 05/28/17 23:59 23:59 23:59 23:59 Intake Total 830 400 400 700 Balance 830 400 400 700 General: lying in bed in no acute distress Musculoskeletal: no spinal tenderness, neg SLR Extremities: LLE dressing clean Neuro LE power 5/5, Home Medication List Medication Instructions Recorded Confirmed Type Glipizide [Glucotrol] 5 mg PO BID 04/08/17 05/24/17 History Metformin HCl [Glucophage -] 500 mg PO DAILY 04/08/17 05/24/17 History Oxycodone HCl 15 mg PO DAILY 04/08/17 05/24/17 History Active Medications Generic Name Dose Route Start Last Admin Trade Name Elizabeth PRN Reason Stop Dose Admin Acetaminophen 650 mg 05/24/17 09:56 05/28/17 15:55 Tylenol - PO 650 mg Q6H PRN Administration PAIN LEVEL 6-10 Collagenase 1 applic 05/28/17 10:00 05/28/17 15:02 Santyl - TP 1 applic DAILY [facility] Administration Docusate Sodium 100 mg 05/27/17 16:00 05/28/17 11:07 Colace - PO 100 mg BID [facility] Administration Heparin Sodium (Porcine) 5,000 unit 05/24/17 06:00 05/28/17 15:02 Heparin - SQ 5,000 unit TID [facility] Administration Insulin Aspart 1 vial 05/24/17 07:00 05/28/17 11:52 Novolog Vial Sliding Scale - SQ 2 units ACHS [facility] Administration Protocol Lisinopril 40 mg 05/24/17 10:00 05/28/17 11:07 Prinivil PO 40 mg DAILY [facility] Administration Nifedipine 60 mg 05/24/17 10:00 05/28/17 11:07 Procardia Xl - PO 60 mg DAILY [facility] Administration Oxycodone HCl 5 mg 05/28/17 15:26 05/28/17 15:49 Roxicodone - PO 5 mg Q12H PRN Administration BACK PAIN Polyethylene Glycol 17 gm 05/27/17 15:54 Miralax (For Daily Use) - PO DAILY PRN CONSTIPATION Lab Results WBC 6.9 K/mm3 (4.0-10.0) 05/27/17 06:00 RBC 3.11 M/mm3 (4.00-5.60) L 05/27/17 06:00 Hgb 8.6 GM/dL (11.7-16.9) L 05/27/17 06:00 Hct 26.3 % (35.4-49) L 05/27/17 06:00 MCV 84.6 fl (80-96) 05/27/17 06:00 MCHC 32.9 g/dl (32.0-35.9) 05/27/17 06:00 RDW 12.6 % (11.9-15.9) 05/27/17 06:00 Plt Count 285 K/MM3 (134-434) 05/27/17 06:00 Sodium 143 mmol/L (136-145) 05/27/17 06:00 Potassium 4.2 mmol/L (3.5-5.1) 05/27/17 06:00 Chloride 109 mmol/L (98-107) H 05/27/17 06:00 Carbon Dioxide 29 mmol/L (21-32) 05/27/17 06:00 Anion Gap 5 (8-16) L 05/27/17 06:00 BUN 29 mg/dL (7-18) H D 05/27/17 06:00 Creatinine 0.9 mg/dL (0.7-1.3) 05/27/17 06:00 Random Glucose 120 mg/dL (74-106) H D 05/27/17 06:00 Calcium 7.9 mg/dL (8.5-10.1) L 05/27/17 06:00 Blood Type O NEGATIVE 05/25/17 06:30 Antibody Screen Negative 05/25/17 06:30 INR 1.11 (0.82-1.09) 05/24/17 06:45 ASSESSMENT AND PLAN: 57yo M wtih PMH DM, HTN, PAD, S/P L foot 1st toe amputation presented to the ER with +MRI report -Suspected L4-L5 osteomyelitis -Acute on chronic anemia of chronic disease, no clinical evidence of bleed -PVD s/p left 1st toe amputation -Recent LLE cellulitis -Bilateral inguinal lymphadenopathy -HTN -DM, last A1c 5 Plan: Follow up bone biopsy results. ID input appreciated. hold off on antibiotics for now. Blood cultures neg so far. Neurosurgery input appreciated. No new neurological concerns. Vascular surgery consult for LLE wound care and dressing changes/recs. Pain control with oxycodone/acetaminophen, add bowel regimen. Taper oxycodone. Continue home lisinopril/nifedipine DVTPPX with heparin Dispo planning pending bone biopsy results, ID input and clinical improvement. Plan discussed with patient in detail, all questions answered.
--- NOTE | 2017-05-28 15:58 | PATH ---
Surgical Pathology Report Patient Name: FILIPPO RICHARD Med. Rec. #: [id number] /Age/Gender: 1960 (Age: 57) / M Account: [id number] Location: [facility] MED/SURG Taken: 05/26/2017 Received: 05/27/2017 Reported: 05/28/2017 Physicians: FERNANDO Cole M.D. Specimen(s) Received A: BONE BX B: BONE BX Clinical History 57-year-old male with discitis of L4-L5 Final Diagnosis A. BONE, BIOPSY: BONE AND CARTILAGE WITH DEGENERATIVE CHANGES. NO EVIDENCE OF ACUTE OSTEOMYELITIS. B. BONE, BIOPSY: BONE AND CARTILAGE WITH DEGENERATIVE CHANGES AND FOCAL FIBROSIS. DENSE FIBROCONNECTIVE TISSUE PRESENT. NO EVIDENCE OF ACUTE OSTEOMYELITIS. Electronically Signed Tessy Grimes M.D. Gross Description A. Received in formalin labeled "bone biopsy," are 3 arevalo bone fragments ranging from 0.2-0.5 cm in length and averaging 0.1 cm in diameter. The specimens are submitted in toto in one cassette, following decalcification. B. Received in formalin labeled "bone biopsy," are 3 arevalo bone fragments ranging from 0.2-0.4 cm in length and averaging 0.1 cm in diameter. The specimens are submitted in toto in one cassette, following decalcification. 05/27/201705/27/2017
--- NOTE | 2017-05-28 16:34 | PN ---
Physical Exam: SUBJECTIVE: Patient seen and examined at bedside. Complaining of some mild back pain but otherwise unchanged from yesterday. OBJECTIVE: Vital Signs Period Temp Pulse Resp BP Sys/Lopez Pulse Ox Last 24 Hr 97.7 F-98.5 F 86-92 18-20 147-178/83-98 95-96 GENERAL: Awake, alert, and fully oriented, in no acute distress. HEAD: Normal with no signs of trauma. LUNGS: Breath sounds equal, clear to auscultation bilaterally. No wheezes, and no crackles. No accessory muscle use. HEART: Regular rate and rhythm, normal S1 and S2 without murmur, rub or gallop. ABDOMEN: Soft, nontender, not distended, normoactive bowel sounds, no guarding, no rebound, no masses. No hepatomegaly or splenomegaly. MUSCULOSKELETAL: Normal range of motion at all joints. No bony deformities or tenderness. No CVA tenderness. UPPER EXTREMITIES: 2+ pulses, warm, well-perfused. No cyanosis. No clubbing. No peripheral edema, partial R thumb amputation LOWER EXTREMITIES: 2+ pulses, warm, well-perfused. No calf tenderness No peripheral edema. L great toe amputation NEUROLOGICAL: Cranial nerves II-XII intact. Normal speech. Normal gait. PSYCHIATRIC: Cooperative. Good eye contact. Appropriate mood and affect. SKIN: Warm, dry, normal turgor, no rashes or lesions noted, normal capillary refill. CBC, BMP 05/27/17 06:00 05/27/17 06:00 Active Medications Acetaminophen (Tylenol -) 650 mg PO Q6H PRN PRN Reason: PAIN LEVEL 6-10 Last Admin: 05/28/17 15:55 Dose: 650 mg Collagenase (Santyl -) 1 applic TP DAILY [facility] Last Admin: 05/28/17 15:02 Dose: 1 applic Docusate Sodium (Colace -) 100 mg PO BID [facility] Last Admin: 05/28/17 11:07 Dose: 100 mg Heparin Sodium (Porcine) (Heparin -) 5,000 unit SQ TID [facility] Last Admin: 05/28/17 15:02 Dose: 5,000 unit Insulin Aspart (Novolog Vial Sliding Scale -) 1 vial SQ ACHS [facility] PRN Reason: Protocol Last Admin: 05/28/17 11:52 Dose: 2 units Lisinopril (Prinivil) 40 mg PO DAILY [facility] Last Admin: 05/28/17 11:07 Dose: 40 mg Nifedipine (Procardia Xl -) 60 mg PO DAILY [facility] Last Admin: 05/28/17 11:07 Dose: 60 mg Oxycodone HCl (Roxicodone -) 5 mg PO Q12H PRN PRN Reason: BACK PAIN Last Admin: 05/28/17 15:49 Dose: 5 mg Polyethylene Glycol (Miralax (For Daily Use) -) 17 gm PO DAILY PRN PRN Reason: CONSTIPATION ASSESSMENT/PLAN: 57 year old male with a past medical history of diabetes and hypertension presents to the ED after being sent by oncology for abnormal MRI of the spine suggestive of osteomyelitis. #Vertebral Osteomyelitis: based on result of MRI, bone biopsy performed today -MRI done 2/2 groin lymphadenopathy and suspicious for osteomyelitis -initial gram stain of bone biopsy was negative for infection, initial culture was negative, waiting on fungal culture -d/w dr fuller, will need picc line likely friday for outpatient antibiotic therapy -Patient awaiting results of IR guided biopsy of L4-L5 vertebral disk -no antibiotics until results of biopsy come back -roxicodone prn #Left Hallux Amputation -keep foot wrapped and dry -consult dr krause for foot wound -proper wound care and dressing changes if dressing is removed -santyl #Normochromic, Normocytic Anemia: this is patient's baseline -no acute intervention needed -transfuse if hgb <7 #Diabetes Mellitus: pt sugars usually 120, 150 today -insulin sliding scale #Hypertension: Most recently up in the 190s, will start antihypertensives -Nifedipine 60 PO -Lisinopril 40 PO #FEN -No standing fluids -Diabetic diet -Electrolytes wnl #Prophylaxis -heparin 5000subq TID #Disposition -admit to med-surg -full code Visit type - Emergency Visit Emergency Visit: No - New Patient This patient is new to me today: No - Critical Care Critical Care patient: No
--- NOTE | 2017-05-28 17:09 | PN ---
Progress Note, Physician History of Present Illness: patient stable doing well still awaiting for final cx - Current Medication List Current Medications: Active Medications Acetaminophen (Tylenol -) 650 mg PO Q6H PRN PRN Reason: PAIN LEVEL 6-10 Last Admin: 05/28/17 15:55 Dose: 650 mg Collagenase (Santyl -) 1 applic TP DAILY [facility] Last Admin: 05/28/17 15:02 Dose: 1 applic Docusate Sodium (Colace -) 100 mg PO BID [facility] Last Admin: 05/28/17 11:07 Dose: 100 mg Heparin Sodium (Porcine) (Heparin -) 5,000 unit SQ TID [facility] Last Admin: 05/28/17 15:02 Dose: 5,000 unit Insulin Aspart (Novolog Vial Sliding Scale -) 1 vial SQ ACHS [facility] PRN Reason: Protocol Last Admin: 05/28/17 11:52 Dose: 2 units Lisinopril (Prinivil) 40 mg PO DAILY [facility] Last Admin: 05/28/17 11:07 Dose: 40 mg Nifedipine (Procardia Xl -) 60 mg PO DAILY [facility] Last Admin: 05/28/17 11:07 Dose: 60 mg Oxycodone HCl (Roxicodone -) 5 mg PO Q12H PRN PRN Reason: BACK PAIN Last Admin: 05/28/17 15:49 Dose: 5 mg Polyethylene Glycol (Miralax (For Daily Use) -) 17 gm PO DAILY PRN PRN Reason: CONSTIPATION - Objective Vital Signs: Vital Signs Temperature 98.1 F 05/28/17 14:50 Pulse Rate 92 H 05/28/17 14:50 Respiratory Rate 18 05/28/17 14:50 Blood Pressure 148/83 05/28/17 14:50 O2 Sat by Pulse Oximetry (%) 96 05/28/17 09:00 Constitutional: Yes: No Distress, Calm Cardiovascular: Yes: Regular Rate and Rhythm Respiratory: Yes: Regular, CTA Bilaterally Gastrointestinal: Yes: Normal Bowel Sounds, Soft Musculoskeletal: Yes: WNL Extremities: Yes: Other Wound/Incision: Yes: Dressing Dry and Intact Neurological: Yes: Alert, Oriented Psychiatric: Yes: Alert, Oriented Labs: CBC, BMP 05/27/17 06:00 05/27/17 06:00 INR, PTT INR 1.11 (0.82-1.09) 05/24/17 06:45 Assessment/Plan Vertebral Osteomyelitis Left Hallux Amputation Diabetes Mellitus Hypertension plan awaiting cx reports patient will need oil heaterman abx decision after the cx
[2017-05-29] MEDS: ACETAMINOPHEN 325 MG TABLET (FP) PO PRN ×3 (02:25→21:12)
[2017-05-29] MEDS: HEPARIN NA (PORCINE) 5,000 UNITS/ML 1ML VIAL SQ SCH ×3 (06:03→21:13)
[2017-05-29] MEDS: INSULIN SLIDING SCALE (NOVOLOG) 1 VIAL SQ SCH ×4 (06:15→21:13)
[2017-05-29 08:29] LABS: BASOPHIL 1.2 % (0-2.0); EOSINOPHIL 3.4 % (0-4.5); MCH 28.3 pg (25.7-33.7); MCHC 33.4 g/dl (32.0-35.9); MEAN CELL VOLUME 84.7 fl (80-96); NEUTROPHILS 55.3 % (42.8-82.8); PLATELET COUNT 328 K/MM3 (134-434); RDW 12.8 % (11.9-15.9); WHITE BLOOD COUNT 6.1 K/mm3 (4.0-10.0)
[2017-05-29 08:58] LABS: ANION GAP 3 (8-16); CALCIUM 8.3 mg/dL (8.5-10.1); CO2 31 mmol/L (21-32); CREATININE 0.8 mg/dL (0.7-1.3); GLUCOSE,RANDOM 134 mg/dL (74-106)
--- NOTE | 2017-05-29 09:30 | PN ---
Physical Exam: SUBJECTIVE: Patient seen and examined, laying down in bed. Told by nurse that his BP this am was 170/100. He was given his morning hypertension medication lisinopril and procardia; BP did not change after one hr; increased procardia daily doae to 90mg po daily No associated symptoms; denies JONES, blurry vision, sob, cp, n, v, leg swelling. OBJECTIVE: Vital Signs Period Temp Pulse Resp BP Sys/Lopez Pulse Ox Last 24 Hr 97.6 F-98.4 F 84-92 18-20 148-182/81-102 96 GENERAL: The patient is awake, alert, and fully oriented, in no acute distress. HEAD: Normal with no signs of trauma. LUNGS: Breath sounds equal, clear to auscultation bilaterally, no wheezes, no crackles, no accessory muscle use. HEART: Regular rate and rhythm, S1, S2 without murmur, rub or gallop. ABDOMEN: Soft, nontender, nondistended, normoactive bowel sounds, no guarding, no rebound, no hepatosplenomegaly, no masses. EXTREMITIES: 2+ pulses, warm, well-perfused, no edema. L foot dressing C/D/I NEUROLOGICAL: Cranial nerves II through XII grossly intact. Normal speech, gait not observed. Laboratory Results - last 24 hr 05/28/17 05/28/17 05/28/17 11:51 17:15 21:26 WBC RBC Hgb Hct MCV MCH MCHC RDW Plt Count MPV Neutrophils % Lymphocytes % Monocytes % Eosinophils % Basophils % Sodium Potassium Chloride Carbon Dioxide Anion Gap BUN Creatinine POC Glucometer 183 149 196 Random Glucose Calcium 05/29/17 05/29/17 05/29/17 05:42 08:25 08:25 WBC 6.1 RBC 3.68 L Hgb 10.4 L D Hct 31.1 L D MCV 84.7 MCH 28.3 MCHC 33.4 RDW 12.8 Plt Count 328 MPV 7.0 L Neutrophils % 55.3 Lymphocytes % 30.9 D Monocytes % 9.2 Eosinophils % 3.4 Basophils % 1.2 Sodium 142 Potassium 4.3 Chloride 108 H Carbon Dioxide 31 Anion Gap 3 L BUN 18 D Creatinine 0.8 POC Glucometer 136 Random Glucose 134 H Calcium 8.3 L Active Medications Generic Name Dose Route Start Last Admin Trade Name Freq PRN Reason Stop Dose Admin Acetaminophen 650 mg 05/24/17 09:56 05/29/17 02:25 Tylenol - PO 650 mg Q6H PRN Administration PAIN LEVEL 6-10 Collagenase 1 applic 05/28/17 10:00 05/28/17 15:02 Santyl - TP 1 applic DAILY [facility] Administration Docusate Sodium 100 mg 05/27/17 16:00 05/28/17 21:34 Colace - PO 100 mg BID [facility] Administration Heparin Sodium (Porcine) 5,000 unit 05/24/17 06:00 05/29/17 06:03 Heparin - SQ 5,000 unit TID [facility] Administration Insulin Aspart 1 vial 05/24/17 07:00 05/29/17 06:15 Novolog Vial Sliding Scale - SQ Not Given ACHS [facility] Protocol Lisinopril 40 mg 05/24/17 10:00 05/28/17 11:07 Prinivil PO 40 mg DAILY [facility] Administration Nifedipine 60 mg 05/24/17 10:00 05/28/17 11:07 Procardia Xl - PO 60 mg DAILY [facility] Administration Oxycodone HCl 5 mg 05/28/17 15:26 05/28/17 15:49 Roxicodone - PO 5 mg Q12H PRN Administration BACK PAIN Polyethylene Glycol 17 gm 05/27/17 15:54 Miralax (For Daily Use) - PO DAILY PRN CONSTIPATION ASSESSMENT/PLAN: 57 year old male with a past medical history of diabetes and hypertension presents to the ED after being sent by oncology for abnormal MRI of the spine suggestive of osteomyelitis. #Discitis/osteomyelitis of L4-L5 -biopsy negativel fungal cultre pending -will treat with [employer] antibiotics -as per ID #normocytic normochromic anemia : baseline #DM: -insulin SS -BGM #HTN -increased daily dose of procardia to 90mg po dqd -cont lisinopril 40mg po daily #diabetic diet #dvt proph heparin sq Disposition: once fungal culture back; cheryl IV antibiotics ; Picc line Visit type - Emergency Visit Emergency Visit: Yes ED Registration Date: 05/24/17 Care time: The patient presented to the Emergency Department on the above date and was hospitalized for further evaluation of their emergent condition. - New Patient This patient is new to me today: Yes Date on this admission: 05/29/17 - Critical Care Critical Care patient: No
[2017-05-29] MEDS: DOCUSATE SODIUM 100 MG CAPSULE (FP) PO SCH ×2 (09:39→21:12)
[2017-05-29] MEDS: NIFEdipine E.R 60 MG TABLET (UD) PO SCH (09:39)
[2017-05-29] MEDS: LISINOPRIL 20 MG TABLET (FP) PO SCH (09:39)
--- NOTE | 2017-05-29 10:21 | PN ---
Progress Note (short form) - Note Progress Note: NEUROSURGERY Tolerating diet Pain better No new complaint PE: AF, VSS General- L foot dressing, edema L > R Neuro- L DF/PF limited by dressing 3-4-/5; R side 4+-5 at least Blood culture negative x 5 days vertebral biopsy culture negative Prior L foot wound culture- multiple organism both gram + and Gram - ID input for iv abx regimen Emperic treatment reasonable given prior foot infection, DM and lumbar spine MRI appearance Pt understands the above
[2017-05-29] MEDS ORDERED: NIFEdipine E.R. 30 MG TABLET (FP) PO ONE (10:35)
[2017-05-29] MEDS ORDERED: LORazepam 2 MG/ML SDV VIAL IM ONE (10:35)
--- NOTE | 2017-05-29 11:22 | PN ---
Teaching Attending Note Name of Resident: Ashley Ferrell ATTENDING PHYSICIAN STATEMENT Time of evaluation: 8:20 AM I saw and evaluated the patient. I reviewed the resident's note and discussed the case with the resident. I agree with the resident's findings and plan as documented. SUBJECTIVE: Patient seen and examined, no back or foot pain. No headache. Overall feels better. No new complaints. OBJECTIVE: Vital Signs Period Temp Pulse Resp BP Sys/Lopez Pulse Ox Last 24 Hr 97.6 F-98.4 F 84-92 18-20 148-182/81-102 96 Intake & Output 05/26/17 05/27/17 05/28/17 05/29/17 23:59 23:59 23:59 23:59 Intake Total 287 345 1824 200 Balance 013 951 2941 200 General: sitting at edge of bed eating, in no acute distress CVS:S1S2 regular Musculoskeletal: no spinal tenderness, SLR NEg bilateral LE extremities: left foot dressing with some surrounding edema, no erythema noted Home Medication List Medication Instructions Recorded Confirmed Type Glipizide [Glucotrol] 5 mg PO BID 04/08/17 05/24/17 History Metformin HCl [Glucophage -] 500 mg PO DAILY 04/08/17 05/24/17 History Oxycodone HCl 15 mg PO DAILY 04/08/17 05/24/17 History Active Medications Generic Name Dose Route Start Last Admin Trade Name Freq PRN Reason Stop Dose Admin Acetaminophen 650 mg 05/24/17 09:56 05/29/17 02:25 Tylenol - PO 650 mg Q6H PRN Administration PAIN LEVEL 6-10 Collagenase 1 applic 05/28/17 10:00 05/28/17 15:02 Santyl - TP 1 applic DAILY [facility] Administration Docusate Sodium 100 mg 05/27/17 16:00 05/29/17 09:39 Colace - PO 100 mg BID [facility] Administration Heparin Sodium (Porcine) 5,000 unit 05/24/17 06:00 05/29/17 06:03 Heparin - SQ 5,000 unit TID [facility] Administration Insulin Aspart 1 vial 05/24/17 07:00 05/29/17 06:15 Novolog Vial Sliding Scale - SQ Not Given ACHS [facility] Protocol Lisinopril 40 mg 05/24/17 10:00 05/29/17 09:39 Prinivil PO 40 mg DAILY [facility] Administration Nifedipine 90 mg 05/30/17 10:00 Procardia Xl - PO DAILY [facility] Oxycodone HCl 5 mg 05/28/17 15:26 05/28/17 15:49 Roxicodone - PO 5 mg Q12H PRN Administration BACK PAIN Polyethylene Glycol 17 gm 05/27/17 15:54 Miralax (For Daily Use) - PO DAILY PRN CONSTIPATION Microbiology 05/23/17 22:31 Blood - Peripheral Venous Blood Culture - Final NO GROWTH AFTER 5 DAYS INCUBATION 05/23/17 22:31 Blood - Peripheral Venous Blood Culture - Final NO GROWTH AFTER 5 DAYS INCUBATION 05/26/17 15:00 Bone Gram Stain - Final 05/26/17 15:00 Bone Tissue Culture - Final NO GROWTH OF AEROBIC ORGANISMS AFTER 48 HOURS INCUBATION 05/26/17 15:00 Bone Anaerobic Culture - Final NO ANAEROBES WERE ISOLATED 05/26/17 15:00 Bone AFB Smear Concentration - Final 05/26/17 15:00 Bone Mycobacterial Culture - Preliminary 05/26/17 15:00 Bone CHARLES Preparation - Preliminary 05/26/17 15:00 Bone Fungal Culture - Preliminary ASSESSMENT AND PLAN: 57yo M wtih PMH DM, HTN, PAD, S/P L foot 1st toe amputation presented to the ER with +MRI report -Suspected L4-L5 osteomyelitis -Acute on chronic anemia of chronic disease, no clinical evidence of bleed -PVD s/p left 1st toe amputation -Recent LLE cellulitis -Bilateral inguinal lymphadenopathy -HTN -DM, last A1c 5 Plan: Follow up bone biopsy results. ID input appreciated. hold off on antibiotics for now. Blood cultures neg so far. Neurosurgery input appreciated. No new neurological concerns. Vascular surgery consult for LLE wound care and dressing changes/recs. Pain control with oxycodone/acetaminophen, add bowel regimen. Taper oxycodone. Continue home lisinopril/nifedipine, increase nifedipine, monitor BP. DVTPPX with heparin Dispo planning pending bone biopsy results, ID input and clinical improvement. Plan discussed with patient in detail, all questions answered.
[2017-05-29] MEDS: COLLAGENASE CLOSTRIDIUM HIST. 30 GRAMS TUBE TP SCH (12:37)
[2017-05-29] MEDS: oxyCODONE HCL 5 MG TABLET PO PRN (15:44)
[2017-05-30] MEDS: HEPARIN NA (PORCINE) 5,000 UNITS/ML 1ML VIAL SQ SCH ×2 (05:47→14:35)
[2017-05-30] MEDS ORDERED: INSULIN (NOVOLOG) ASPART 100 UNITS/ML 10ML VIAL ONE ×2 (06:09→12:35)
[2017-05-30] MEDS: INSULIN SLIDING SCALE (NOVOLOG) 1 VIAL SQ SCH ×3 (06:26→17:36)
[2017-05-30] MEDS ORDERED: NIFEdipine E.R. 30 MG TABLET (FP) PO SCH ×2 (06:45→10:00)
[2017-05-30 08:00] LABS: EOSINOPHIL 3.4 % (0-4.5); MCH 27.9 pg (25.7-33.7); MCHC 33.1 g/dl (32.0-35.9); MEAN CELL VOLUME 84.4 fl (80-96); MEAN PLT VOLUME 7.3 fl (7.5-11.1); NEUTROPHILS 53.7 % (42.8-82.8); PLATELET COUNT 306 K/MM3 (134-434); RDW 12.7 % (11.9-15.9); WHITE BLOOD COUNT 5.8 K/mm3 (4.0-10.0)
[2017-05-30 08:40] LABS: ANION GAP 6 (8-16); CALCIUM 8.7 mg/dL (8.5-10.1); CO2 32 mmol/L (21-32); GLUCOSE,RANDOM 127 mg/dL (74-106)
[2017-05-30] MEDS: DOCUSATE SODIUM 100 MG CAPSULE (FP) PO SCH ×2 (08:56→11:05)
[2017-05-30] MEDS: LISINOPRIL 20 MG TABLET (FP) PO SCH ×2 (08:56→11:05)
--- NOTE | 2017-05-30 08:59 | PN ---
Progress Note, Physician History of Present Illness: patient doing well no complaints - Current Medication List Current Medications: Active Medications Acetaminophen (Tylenol -) 650 mg PO Q6H PRN PRN Reason: PAIN LEVEL 6-10 Last Admin: 05/29/17 21:12 Dose: 650 mg Ceftriaxone Sodium (Rocephin 2gm Ivpb (Pre-Docked)) 2 gm IVPB DAILY [facility] PRN Reason: Protocol Collagenase (Santyl -) 1 applic TP DAILY [facility] Last Admin: 05/29/17 12:37 Dose: 1 applic Docusate Sodium (Colace -) 100 mg PO BID [facility] Last Admin: 05/29/17 21:12 Dose: 100 mg Heparin Sodium (Porcine) (Heparin -) 5,000 unit SQ TID [facility] Last Admin: 05/30/17 05:47 Dose: 5,000 unit Insulin Aspart (Novolog Vial Sliding Scale -) 1 vial SQ ACHS [facility] PRN Reason: Protocol Last Admin: 05/30/17 06:26 Dose: Not Given Lisinopril (Prinivil) 40 mg PO DAILY [facility] Last Admin: 05/29/17 09:39 Dose: 40 mg Nifedipine (Procardia Xl -) 90 mg PO DAILY [facility] Last Admin: 05/30/17 06:35 Dose: 90 mg Oxycodone HCl (Roxicodone -) 5 mg PO Q12H PRN PRN Reason: BACK PAIN Last Admin: 05/29/17 15:44 Dose: 5 mg Polyethylene Glycol (Miralax (For Daily Use) -) 17 gm PO DAILY PRN PRN Reason: CONSTIPATION - Objective Vital Signs: Vital Signs Temperature 98.6 F 05/30/17 06:40 Pulse Rate 88 05/30/17 06:40 Respiratory Rate 18 05/30/17 06:40 Blood Pressure 180/101 05/30/17 06:40 O2 Sat by Pulse Oximetry (%) 96 05/29/17 21:00 Constitutional: Yes: No Distress, Calm Cardiovascular: Yes: Regular Rate and Rhythm Respiratory: Yes: Regular, CTA Bilaterally Gastrointestinal: Yes: Normal Bowel Sounds, Soft Musculoskeletal: Yes: Back Pain Extremities: Yes: Other Wound/Incision: Yes: Dressing Dry and Intact Neurological: Yes: Alert, Oriented Psychiatric: Yes: Alert, Oriented Labs: CBC, BMP 05/30/17 07:23 05/30/17 07:23 INR, PTT INR 1.11 (0.82-1.09) 05/24/17 06:45 Assessment/Plan Vertebral Osteomyelitis Left Hallux Amputation Diabetes Mellitus Hypertension patients fungal and other cx are not back his bacterial cx is negative in view of that plan i ahve started patient on ceftriaxone,patient will need abx for 4 weeks his fungal cx are still not back his work up noted ceftriaxone for 4 weeks with weekly cbc and bmp
[2017-05-30] MEDS ORDERED: cefTRIAXone 2 GM/100 ML BAG (PRE-DOCKED) IVPB SCH (09:00)
[2017-05-30] MEDS: oxyCODONE HCL 5 MG TABLET PO PRN (09:02)
--- NOTE | 2017-05-30 09:42 | PN ---
Progress Note (short form) - Note Progress Note: NEUROSURGERY Tolerating diet Pain better PE: AF, VSS General- L foot dressing, edema L > R Neuro- L DF/PF 4-/5; R side 4+-5 at least Blood culture negative x 5 days vertebral biopsy culture negative ID input noted - for ceftriaxone x 4 weeks prison iv access needed prior to discharge Pt aware
[2017-05-30] MEDS ORDERED: CEFTRIAXONE 2 GM in DEXTROSE 5%-WATER - 100 ML IVPB SCH (10:00)
[2017-05-30] MEDS ORDERED: PICC LINE 8 ML FLUSH PROTOCOL IVPUSH PRN (10:44)
[2017-05-30] MEDS: COLLAGENASE CLOSTRIDIUM HIST. 30 GRAMS TUBE TP SCH (14:34)
[2017-05-30] MEDS ORDERED: CEFTRIAXONE 2 GM in DEXTROSE 5%-WATER - 100 ML IVPB ONE (15:57)
--- NOTE | 2017-05-30 16:50 | PN ---
Teaching Attending Note Name of Resident: Dragan Abdi ATTENDING PHYSICIAN STATEMENT Time of evaluation: 10:15 AM I saw and evaluated the patient. I reviewed the resident's note and discussed the case with the resident. I agree with the resident's findings and plan as documented. SUBJECTIVE: Patient seen and examined. No complaints, overall feels good. OBJECTIVE: Vital Signs Period Temp Pulse Resp BP Sys/Lopez Pulse Ox Last 24 Hr 98.0 F-98.6 F 86-88 18-20 156-190/92-110 96-96 Intake & Output 05/27/17 05/28/17 05/29/17 05/30/17 23:59 23:59 23:59 23:59 Intake Total 400 1400 1250 250 Output Total 300 Balance 400 1400 950 250 General: lying in bed in no acute distress Musculoskeletal: no spinal tenderness Extremities: left foot dressing, exam unchanged Home Medication List Medication Instructions Recorded Confirmed Type Glipizide [Glucotrol] 5 mg PO BID 04/08/17 05/24/17 History Metformin HCl [Glucophage -] 500 mg PO DAILY 04/08/17 05/24/17 History Active Medications Generic Name Dose Route Start Last Admin Trade Name Freq PRN Reason Stop Dose Admin Acetaminophen 650 mg 05/24/17 09:56 05/29/17 21:12 Tylenol - PO 650 mg Q6H PRN Administration PAIN LEVEL 6-10 Collagenase 1 applic 05/28/17 10:00 05/30/17 14:34 Santyl - TP 1 applic DAILY SANGEETHA Administration Docusate Sodium 100 mg 05/27/17 16:00 05/30/17 11:05 Colace - PO Not Given BID SANGEETHA Heparin Sodium (Porcine) 5,000 unit 05/24/17 06:00 05/30/17 14:35 Heparin - SQ 5,000 unit TID SANGEETHA Administration IV Flush 8 ml 05/30/17 10:44 Picc Line Flush IVPUSH PRN PRN Protocol Ceftriaxone Sodium 2 gm/ 100 mls @ 200 mls/hr 05/30/17 10:00 05/30/17 11:06 Dextrose IVPB 200 mls/hr DAILY SANGEETHA Administration Insulin Aspart 1 vial 05/24/17 07:00 05/30/17 11:26 Novolog Vial Sliding Scale - SQ 4 units ACHS SANGEETHA Administration Protocol Lisinopril 40 mg 05/24/17 10:00 05/30/17 11:05 Prinivil PO Not Given DAILY SANGEETHA Nifedipine 90 mg 05/30/17 06:45 05/30/17 06:35 Procardia Xl - PO 90 mg DAILY SANGEETHA Administration Oxycodone HCl 5 mg 05/28/17 15:26 05/30/17 09:02 Roxicodone - PO 5 mg Q12H PRN Administration BACK PAIN Polyethylene Glycol 17 gm 05/27/17 15:54 Miralax (For Daily Use) - PO DAILY PRN CONSTIPATION ASSESSMENT AND PLAN: 57yo M wtih PMH DM, HTN, PAD, S/P L foot 1st toe amputation presented to the ER with +MRI report -Suspected L4-L5 osteomyelitis -Acute on chronic anemia of chronic disease, no clinical evidence of bleed -PVD s/p left 1st toe amputation -Recent LLE cellulitis -Bilateral inguinal lymphadenopathy -HTN -DM, last A1c 5 PLan: blood/bone biopsy cultures neg so far. Discussed with Dr. Cedeno, plan for 4 weeks of IV ceftriaxone. PICC line and outpatient home infusion arranged. Weekly labs. Procardia increased, BP improved. D/c home with IV antibiotics, plan discussed with patient in detail, all questions answered.
--- NOTE | 2017-05-30 17:36 | DS ---
Physical Exam: SUBJECTIVE: Patient seen and examined at bedside. Patient states that he has minimal back pain and some right leg tenderness. Patient had his dressing changed today. Denies chest pain, shortness of breath, nausea, vomiting, diarrhea, fevers, chills. OBJECTIVE: Vital Signs Period Temp Pulse Resp BP Sys/Lopez Pulse Ox Last 24 Hr 98.0 F-98.6 F 86-88 18-20 156-190/92-110 96-96 PHYSICAL EXAM GENERAL: Awake, alert, and fully oriented, in no acute distress. HEAD: Normal with no signs of trauma. LUNGS: Breath sounds equal, clear to auscultation bilaterally. No wheezes, and no crackles. No accessory muscle use. HEART: Regular rate and rhythm, normal S1 and S2 without murmur, rub or gallop. ABDOMEN: Soft, nontender, not distended, normoactive bowel sounds, no guarding, no rebound, no masses. No hepatomegaly or splenomegaly. MUSCULOSKELETAL: Normal range of motion at all joints. No bony deformities or tenderness. No CVA tenderness. UPPER EXTREMITIES: 2+ pulses, warm, well-perfused. No cyanosis. No clubbing. No peripheral edema, partial R thumb amputation. LOWER EXTREMITIES: 2+ pulses, warm, well-perfused. Slight tenderness in R leg on palpation. No peripheral edema. L great toe amputation, new dressing on L leg. NEUROLOGICAL: Cranial nerves II-XII intact. Normal speech. Normal gait. PSYCHIATRIC: Cooperative. Good eye contact. Appropriate mood and affect. SKIN: Warm, dry, normal turgor, no rashes or lesions noted, normal capillary refill. LABS Laboratory Results - last 24 hr 05/29/17 05/29/17 05/30/17 17:54 21:11 05:46 WBC RBC Hgb Hct MCV MCH MCHC RDW Plt Count MPV Neutrophils % Lymphocytes % Monocytes % Eosinophils % Basophils % ESR Sodium Potassium Chloride Carbon Dioxide Anion Gap BUN Creatinine POC Glucometer 172 155 130 Random Glucose Calcium C-Reactive Protein 05/30/17 05/30/17 05/30/17 07:23 07:23 07:23 WBC 5.8 RBC 3.40 L Hgb 9.5 L Hct 28.7 L MCV 84.4 MCH 27.9 MCHC 33.1 RDW 12.7 Plt Count 306 MPV 7.3 L Neutrophils % 53.7 Lymphocytes % 31.3 Monocytes % 10.6 H Eosinophils % 3.4 Basophils % 1.0 ESR Sodium 143 Potassium 4.6 Chloride 105 Carbon Dioxide 32 Anion Gap 6 L BUN 21 H Creatinine 1.0 D POC Glucometer Random Glucose 127 H Calcium 8.7 C-Reactive Protein < 0.3 D 05/30/17 05/30/17 07:23 11:24 WBC RBC Hgb Hct MCV MCH MCHC RDW Plt Count MPV Neutrophils % Lymphocytes % Monocytes % Eosinophils % Basophils % ESR 28 H Sodium Potassium Chloride Carbon Dioxide Anion Gap BUN Creatinine POC Glucometer 228 Random Glucose Calcium C-Reactive Protein HOSPITAL COURSE: Date of Admission:05/24/17 57 year old male with a past medical history of diabetes and hypertension presents to the ED after being sent by oncology for abnormal MRI of the spine suggestive of osteomyelitis. Patient was status-post left great toe amputation, and he had been following up for wound care and hyperbaric treatments at [facility]. Patient was seen in the hospital several weeks prior for left lower extremity swelling and inguinal lymphadenopathy, for which he was on antibiotics. As an outpatient, the patient received an MRI of the lower spine that revealed lumbar spine changes suggestive of osteomyelitis. Patient presented to the emergency department for treatment after he received these results. In the hospital, the patient underwent bone biopsy of the L4/L5 vertebrae to confirm osteomyelitis and identify an organism. Samples from the biopsy were sent for gram stain and cultures. It was decided to treat the patient for 4 weeks with ceftriaxone IV. Patient received a PICC line and was discharged home with instructions to follow up with his primary care physician, continue with his home medications and instructed to receive weekly labs as an outpatient. Date of Discharge: 05/30/17 Minutes to complete discharge: 30 Discharge Summary Reason For Visit: OSTEOMYELITIS Current Active Problems Osteomyelitis (Acute) Condition: Stable - Instructions Diet, Activity, Other Instructions: You were admitted to the hospital for the treatment of vertebral osteomyelitis. Medical Recommendations: -You were given a PICC line upon discharge which allows you to give yourself the antibiotic (Ceftriaxone) -In order to prevent injury, do not use your PICC line for anything other than the antibiotics. Keep the area around the PICC line clean to avoid infection. -A home nurse will instruct you on how to administer the antibiotic safely -You will take antibiotic Ceftriaxone 2gm once a day, every day for a total of 4 weeks. -Continue receiving your regular hyperbaric oxygen treatments. -Continue receiving regular around care for your foot wound -Continue your home medications for diabetes and high blood pressure. -Weekly CBC, Chem-7 and LFTs with results to your doctor while on antibiotics. Your BP medication procardia was increased to 90 mg daily. Advise home BP monitoring till next doctor visit and notify doctor if SBP ( upper BP) < 100 or persistently > 135 or any dizziness noted. Please make an appointment within 2 weeks to see the infectious disease doctor, Dr. Cedeno. Please make an appointment within 2 weeks to see your primary care physician. PLease follow up with Dr. Ponce and with hyperbaric oxygen chamber for your foot. Wound dressing to your foot as advised by Dr. Ponce. Your culture results so far have been negative and you will follow up with Dr. Cedeno for final results. If you experience high fever, chills, nausea, vomiting, chest pain, shortness of breath, worsening back pain or any new symptoms, dirrhea please call 911 and return to the emergency room immediately. Referrals: Annika Cedeno MD [Staff Physician] - Waldemar Eid MD [Primary Care Provider] - Disposition: HOME - Home Medications Comprehensive Discharge Medication List: Ambulatory Orders Lisinopril [Prinivil] 40 mg PO DAILY #0 tablet 11/25/16 Nifedipine ER [Procardia XL -] 60 mg PO DAILY tab 11/25/16 Glipizide [Glucotrol] 5 mg PO BID 04/08/17 Metformin HCl [Glucophage -] 500 mg PO DAILY 04/08/17 Ceftriaxone Na/Dextrose,Iso [Ceftriaxone 2 gm Piggyback] 2 gm IV DAILY 28 Days ml 05/30/17 Nifedipine [Procardia Xl] 90 mg PO DAILY #14 tab.er.[email or web address] 05/30/17 This patient is new to me today: No Emergency Visit: No Critical Care patient: No - Discharge Referral Referred to [facility] Med P.C.: No
[2017-05-30 17:48] VITALS: PULSE 78
[2017-05-30 17:52] VITALS: BP 156/91; TEMP 88.3
== END 2017-05-30 20:00 | disposition home or self-care (01) | DRG 344 ==
LOC: JER 19:52 → JERBED 05-24 01:27 → J8W 05-24 04:14
PROVIDERS: ADMIT Internal Medicine; ATTEND Hospitalist
PROC: 0QB00ZX Excision of Lumbar Vertebra, Open Approach, Diagnostic (ICD-10-PCS; principal; 2017-05-26)
PROC: 02HV33Z Insertion of Infusion Device into Superior Vena Cava, Percutaneous Approach (ICD-10-PCS; 2017-05-30)
DX: M46.26 Osteomyelitis of vertebra, lumbar region (principal); M46.46 Discitis, unspecified, lumbar region; E11.9 Type 2 diabetes mellitus without complications; I10 Essential (primary) hypertension; D64.9 Anemia, unspecified; R59.1 Generalized enlarged lymph nodes; M54.5 Low back pain
CPT/HCPCS: 20225; 36415; 36569; 71010-TC; 76098-TC; 77001-TC; 77012-TC; 80048; 80053; 83735; 84100; 85025; 85027; 85610; 85651; 85730; 86140; 86850; 86900; 86901; 87040; 87070; 87075; 87102; 87116; 87205; 87206; 87210; 87899; 88304-TC; 88311-TC; 93005; 93010; 93970-TC; 97116-GP; 97161-GP; 99282-25; C1751; J1644

== ENCOUNTER 2018-09-25 13:02 | Inpatient (IN) | payer OTHER ==
[2018-09-25] MEDS ORDERED: ASPIRIN 81 MG CHEWABLE TABLETS PO ONE (13:11)
--- NOTE | 2018-09-25 13:12 | PDOC ---
Rapid Medical Evaluation Time Seen by Provider: 09/25/18 13:10 Medical Evaluation: Allergies Allergy/AdvReac Type Severity Reaction Status Date / Time No Known Allergies Allergy Verified 09/25/18 13:08 09/25/18 13:10 I have performed a brief in-person evaluation of this patient. The patient presents with a chief complaint of:SOB and "swelling" Pertinent physical exam findings: NAD or gross deficits I have ordered the following: cardiac work up cxr
--- NOTE | 2018-09-25 13:23 | PDOC ---
History of Present Illness - General Chief Complaint: Edema Stated Complaint: EDEMA Time Seen by Provider: 09/25/18 13:10 - History of Present Illness Initial Comments: 09/25/18 13:23 Mr. Prater is a 58 yo male w/ pmh of DM, HTN, HLD, 2 cardiac stents (on plavix) , kidney disease (kidney's reported as "spilling protein") who presents for evaluation of 3 day history of lower body swelling with 1 week history of worsening shortness of breath. Patient reports he was seen at [facility] a few months ago for DKA and that due to this admission his BP meds were changed 2 weeks ago and he was told to drink more water. Patient is unsure which med he was on or how it changed. Mr. Prater reports that he has had shortness of breath both at rest and with movement as well as a dry cough over this time period. He denies any other associated symptoms at this time. The patient denies chest pain, headache and dizziness. Denies fever, chills, nausea, vomit, diarrhea and constipation. Denies dysuria, frequency, urgency and hematuria. Allergies: NKDA PCP: Dr. Eid Vascular: Dr. Ponce ID: Dr. Cedeno Past History - Past Medical History Allergies/Adverse Reactions: Allergies Allergy/AdvReac Type Severity Reaction Status Date / Time No Known Allergies Allergy Verified 09/25/18 13:08 Home Medications: Ambulatory Orders Lisinopril [Prinivil] 40 mg PO DAILY #0 tablet 11/25/16 Glipizide [Glucotrol] 5 mg PO BID 04/08/17 metFORMIN HCL [Glucophage -] 500 mg PO DAILY 04/08/17 Nifedipine [Procardia Xl] 90 mg PO DAILY #14 tab.er.[email or web address] 05/30/17 Aspirin EC 81 mg PO DAILY 11/03/17 Atorvastatin Ca 40 mg PO DAILY 11/03/17 Flomax 0.4 mg PO DAILY 11/03/17 Hydrochlorothiazide 50 mg PO DAILY 11/03/17 Isosorbide Mononitrate ER 30 mg PO DAILY 11/03/17 Plavix 75 mg PO DAILY 11/03/17 Ranexa 500 mg PO BID 11/03/17 Anemia: No Asthma: No Cancer: No Cardiac Disorders: No CVA: No COPD: No CHF: No Dementia: No Diabetes: Yes GI Disorders: No Disorders: No HTN: Yes Hypercholesterolemia: Yes Liver Disease: No Seizures: No Thyroid Disease: No - Surgical History Orthopedic Surgery: Yes - Suicide/Smoking/Psychosocial Hx Smoking History: Never smoked Have you smoked in the past 12 months: No Hx Alcohol Use: No Drug/Substance Use Hx: No Substance Use Type: None Hx Substance Use Treatment: No Review of Systems - Review of Systems Comments:: 09/25/18 13:39 GENERAL/CONSTITUTIONAL: No fever or chills. No weakness. HEAD, EYES, EARS, NOSE AND THROAT: No change in vision. No ear pain or discharge. No sore throat. CARDIOVASCULAR: No chest pain RESPIRATORY: +worsening SOB with dry cough as described. GASTROINTESTINAL: No nausea, vomiting, diarrhea or constipation. GENITOURINARY: No dysuria, frequency, or change in urination. MUSCULOSKELETAL: +Lower extremity swelling over 3 days he reports is "like a balloon." SKIN: No rash NEUROLOGIC: No headache, vertigo, loss of consciousness, or change in strength/ sensation. ENDOCRINE: No increased thirst. No abnormal weight change HEMATOLOGIC/LYMPHATIC: No anemia, easy bleeding, or history of blood clots. ALLERGIC/IMMUNOLOGIC: No hives or skin allergy. *Physical Exam - Vital Signs Last Vital Signs Temp Pulse Resp BP Pulse Ox 98.4 F 82 16 189/107 H 98 09/25/18 13:09 09/25/18 13:09 09/25/18 13:09 09/25/18 13:09 09/25/18 13:09 - Physical Exam Comments: 09/25/18 13:40 GENERAL: Awake, alert, and fully oriented, in no acute distress HEAD: No signs of trauma, normocephalic, atraumatic EYES: PERRLA, EOMI, sclera anicteric, conjunctiva clear ENT: Auricles normal inspection, hearing grossly normal, nares patent, oropharynx clear without exudates. Moist mucosa NECK: Normal ROM, supple, no lymphadenopathy, JVD, or masses LUNGS: +Decreased lung sounds at lung bases KAREEM. No distress, speaks full sentences HEART: Regular rate and rhythm, normal S1 and S2, no murmurs, rubs or gallops, peripheral pulses normal and equal bilaterally. ABDOMEN: Soft, nontender, normoactive bowel sounds. No guarding, no rebound. No masses EXTREMITIES: +Significant lower extremity pedal edema noted extending to groin KAREEM. Patient noted to have L big toe amputation. Otherwise normal inspection, Normal range of motion. No clubbing or cyanosis. NEUROLOGICAL: Cranial nerves II through XII grossly intact. Normal speech, normal gait, no focal sensorimotor deficits SKIN: Warm, Dry, normal turgor, no rashes or lesions noted. Moderate Sedation - Procedure Monitoring Vital Signs: Procedure Monitoring Vital Signs Temperature 98.4 F 09/25/18 13:09 Pulse Rate 82 09/25/18 13:09 Respiratory Rate 16 09/25/18 13:09 Blood Pressure 189/107 H 09/25/18 13:09 O2 Sat by Pulse Oximetry (%) 98 09/25/18 13:09 ED Treatment Course - LABORATORY CBC & Chemistry Diagram: 09/25/18 14:00 09/25/18 14:00 Medical Decision Making - Medical Decision Making 09/25/18 14:55 Mr. Prater is a 58 yo male w/ pmh as described who presents for evaluation of symptoms c/w hypervolemia. Patient evaluated with CXR, EKG, and labs as below. Patient EKG significant for decreased amplitude. CXR c/w fluid overload picture with blunting of L lung base. Labs significant for GABI and hypervolemia. Admitting patient for further inpatient management. Laboratory Results - last 24 hr 09/25/18 09/25/18 09/25/18 14:00 14:00 14:00 WBC 5.8 RBC 3.39 L Hgb 9.8 L Hct 29.1 L MCV 85.9 MCH 28.8 MCHC 33.5 RDW 14.5 D Plt Count 253 MPV 7.5 Absolute Neuts (auto) 4.0 Neutrophils % 69.0 D Lymphocytes % 18.2 D Monocytes % 9.0 Eosinophils % 2.8 Basophils % 1.0 Nucleated RBC % 0 PT with INR 16.10 H INR 1.36 H Sodium 144 Potassium 3.7 Chloride 111 H Carbon Dioxide 29 Anion Gap 5 L BUN 51 H Creatinine 2.4 H Creat Clearance w eGFR 28.04 Random Glucose 139 H Calcium 7.8 L Magnesium 2.0 Total Bilirubin 0.4 AST 22 ALT 35 Alkaline Phosphatase 128 H Creatine Kinase 622 H Troponin I 0.05 B-Natriuretic Peptide 82875.5 H Total Protein 5.8 L Albumin 2.0 L *DC/Admit/Observation/Transfer Diagnosis at time of Disposition: GABI (acute kidney injury), Shortness of breath Hypervolemia Qualifiers: Hypervolemia type: unspecified Qualified Code(s): E87.70 - Fluid overload, unspecified - Discharge Dispostion Disposition: HOME Decision to Admit order: Yes - Referrals Referrals: Waldemar Eid MD [Primary Care Provider] - - Patient Instructions - Post Discharge Activity
[2018-09-25] MEDS ORDERED: ASPIRIN 81 MG CHEWABLE TABLETS ONE (13:50)
[2018-09-25 14:10] LABS: EOS % 2.8 % (0-4.5); HEMATOCRIT 29.1 % (35.4-49); HEMOGLOBIN 9.8 GM/dL (11.7-16.9); LYMPH % 18.2 % (8-40); MCH 28.8 pg (25.7-33.7); MCHC 33.5 g/dl (32.0-35.9); MEAN CELL VOLUME 85.9 fl (80-96); MEAN PLT VOLUME 7.5 fl (7.5-11.1); PLATELET COUNT 253 K/MM3 (134-434); RBC 3.39 M/mm3 (4.00-5.60); RDW 14.5 % (11.9-15.9); WHITE BLOOD COUNT 5.8 K/mm3 (4.0-10.0)
[2018-09-25 14:20] LABS: INR 1.36 (0.83-1.09); PROTHROMBIN TIME (PATIENT) 16.1 SEC (9.7-13.0)
[2018-09-25 14:45] LABS: ALK PHOS 128 U/L (45-117); ANION GAP 5 MMOL/L (8-16); BILIRUBIN,TOTAL 0.4 mg/dL (0.2-1); BLOOD UREA NITROGEN 51 mg/dL (7-18); CALCIUM 7.8 mg/dL (8.5-10.1); CHLORIDE 111 mmol/L (98-107); CO2 29 mmol/L (21-32); CREATININE 2.4 mg/dL (0.55-1.3); GLUCOSE,RANDOM 139 mg/dL (74-106); N-TERMINAL BNP 17270.5 pg/ml (5-125); POTASSIUM 3.7 mmol/L (3.5-5.1); SGOT/AST 22 U/L (15-37); SGPT/ALT 35 U/L (13-61); SODIUM 144 mmol/L (136-145); TOT PROT 5.8 g/dl (6.4-8.2)
--- NOTE | 2018-09-25 16:10 | PDOC ---
Attending Attestation - HPI HPI: 09/25/18 16:10 The patient is a 58 year old male with a significant past medical history of DM , HTN, HLD, 2 cardiac stents (on plavix), kidney disease (kidney's reported as "spilling protein") who presents for evaluation of 3 days with lower body swelling and associated 1 week of worsening shortness of breath. The patient denies chest pain,headache and dizziness. Denies fever, chills, nausea, vomit, diarrhea and constipation. Denies dysuria, frequency, urgency and hematuria. Allergies: NKDA PCP: Dr. Eid Vascular: Dr. Ponce ID: Dr. Cedeno <Becky Samson - Last Filed: 09/25/18 16:10> - Resident Resident Name: Jagdeep Whitmore - ED Attending Attestation I have performed the following: I have examined & evaluated the patient, The case was reviewed & discussed with the resident, I agree w/resident's findings & plan, Exceptions are as noted - Physicial Exam PE: GENERAL: Awake, alert, and fully oriented, in no acute distress HEAD: No signs of trauma EYES: PERRLA, EOMI, sclera anicteric, conjunctiva clear ENT: Auricles normal inspection, hearing grossly normal, nares patent, oropharynx clear without exudates. Moist mucosa NECK: Normal ROM, supple, no lymphadenopathy, JVD, or masses LUNGS: Breath sounds equal, clear to auscultation bilaterally. No wheezes, and no crackles HEART: Regular rate and rhythm, normal S1 and S2, no murmurs, rubs or gallops ABDOMEN: Soft, nontender, normoactive bowel sounds. No guarding, no rebound. No masses EXTREMITIES: Normal range of motion, 3+ pitting edema to BLE to the level of the groin. No clubbing or cyanosis. No cords, erythema, or tenderness NEUROLOGICAL: Cranial nerves II through XII grossly intact. Normal speech. Motor and sensation intact SKIN: Warm, Dry, normal turgor, no rashes or lesions noted. - Medical Decision Making Pt with CHF exacerbation, significant peripheral edema. Will diurese and admit. <Rita Carlton - Last Filed: 09/27/18 08:14> Attestations - Attestations 09/25/18 16:10 Documentation prepared by Becky Morenzi, acting as medical office clerk for Rita Carlton MD <Becky Samson - Last Filed: 09/25/18 16:10>
--- NOTE | 2018-09-25 16:58 | HP ---
CHIEF COMPLAINT: SOB x 2 weeks PCP: Dr. Keating HISTORY OF PRESENT ILLNESS: 58 y/o M with PMH DM, HTN, HLD, CAD s/p 2 cardiac stents (2016), who presents to the ED c/o SOB over the past two weeks. As per pt, he was admitted at [facility] for DKA a few months prior. During the admission, he was told he needed to drink more fluids, and was told that he had proteinuria 2/2 kidney issues. Is supposed to have a kidney biopsy done but has not scheduled yet. Pt was d/c home and cont'd to drink increased amounts of water. Pt developed SOB 2 weeks ago, which has gradually worsened. States he also has ROCHA, especially when walking up hills and feels as if his legs are "heavy from fluid." During the same time, also endorses dry cough which he attributes to his past use of lisinopril, though it has been d/c. Pt also notes that he used to be on HCTZ but no longer is on it, and is not sure why. Without further complaint. Denies JONES, fever, chills, chest pain or pressure, or changes in urinary or bowel function. Follows with Dr. Perez. Has had a pharma stress test in 2018. Will need to obtain full report. Also had ECHO 09/2017 which showed EF 54% with normal LV fnc , RVSP normal, mild TR, trivial pericardial effusion. At baseline, pt ambulates on his own, independently. Lives at home. ER course was notable for: (1) asa 162x1 (2) (3) Recent Travel: denies PAST MEDICAL HISTORY: as above PAST SURGICAL HISTORY: L big toe amputation, CAD s/p 2 stents (2018) Social History: used to work for [employer] Smoking: denies Alcohol: occasional Drugs: denies Family History: mother - DM, at age 92 Allergies No Known Allergies Allergy (Verified 09/25/18 13:08) HOME MEDICATIONS: Home Medications Medication Instructions Recorded Glipizide [Glucotrol] 5 mg PO BID 04/08/17 Aspirin [Aspirin EC] 81 mg PO DAILY 09/25/18 Atorvastatin Ca [Lipitor] 40 mg PO HS 09/25/18 Clopidogrel Bisulfate [Plavix] 75 mg PO DAILY 09/25/18 Ergocalciferol (Vitamin D2) 50,000 unit PO WEEKLY 09/25/18 [Vitamin D2] Isosorbide Mononitrate [Isosorbide 30 mg PO DAILY 09/25/18 Mononitrate ER] Labetalol HCl [Normodyne -] 200 mg PO BID 09/25/18 Metolazone [Zaroxolyn -] 5 mg PO DAILY 09/25/18 Ranolazine [Ranexa] 500 mg PO BID 09/25/18 Tamsulosin HCl [Flomax] 0.4 mg PO DAILY 09/25/18 meds from pharmacy listed are different from previous list, and what patient endorses needs to bring in bottles as per pharma: flomax 0.4 qd, vit d 50,000 PO qw, metolazone 5mg PO qd, glipizide 5mg PO BID, labetalol 200mg PO BID, losartan 50 mg PO qd as per pt: also on asa 81, ranexa 500mg BID, lipitor 40 qd, imdur 30mg qd not on lisinopril, HCTZ - confirmed by pt REVIEW OF SYSTEMS CONSTITUTIONAL: Absent: fever, chills, diaphoresis, generalized weakness, malaise, loss of appetite, weight change HEENT: Absent: rhinorrhea, nasal congestion, throat pain, throat swelling, difficulty swallowing, mouth swelling, ear pain, eye pain, visual changes CARDIOVASCULAR: Absent: chest pain, syncope, palpitations, irregular heart rate, lightheadedness , peripheral edema RESPIRATORY: +cough, SOB, ROCHA Absent: orthopnea, wheezing, stridor, hemoptysis GASTROINTESTINAL: Absent: abdominal pain, abdominal distension, nausea, vomiting, diarrhea, constipation, melena, hematochezia GENITOURINARY: Absent: dysuria, frequency, urgency, hesitancy, hematuria, flank pain, genital pain MUSCULOSKELETAL: Absent: myalgia, arthralgia, joint swelling, back pain, neck pain SKIN: Absent: rash, itching, pallor HEMATOLOGIC/IMMUNOLOGIC: Absent: easy bleeding, easy bruising, lymphadenopathy, frequent infections ENDOCRINE: Absent: unexplained weight gain, unexplained weight loss, heat intolerance, cold intolerance NEUROLOGIC: Absent: headache, focal weakness or paresthesias, dizziness, unsteady gait, seizure, mental status changes, bladder or bowel incontinence PSYCHIATRIC: Absent: anxiety, depression, suicidal or homicidal ideation, hallucinations. PHYSICAL EXAMINATION Vital Signs - 24 hr 09/25/18 09/25/18 13:09 15:09 Temperature 98.4 F 97.8 F Pulse Rate 82 Pulse Rate [ 80 Left Apical] Respiratory 16 16 Rate Blood Pressure 189/107 H Blood Pressure 189/104 H [Left Arm] O2 Sat by Pulse 98 96 Oximetry (%) GENERAL: Resting comfortably. Awake, alert, and fully oriented, in no acute distress. HEAD: Normal with no signs of trauma. EYES: Pupils equal, round and reactive to light, extraocular movements intact, sclera anicteric, conjunctiva clear. EARS, NOSE, THROAT: Ears normal, nares patent, oropharynx clear without exudates. Moist mucous membranes. NECK: Normal range of motion, supple LUNGS:+ bibasilar crackles, decreased breath sounds. no accessory m usage HEART: Regular rate and rhythm, normal S1 and S2 without murmur, rub or gallop. ABDOMEN: Soft, obese, nontender, mildly distended, normoactive bowel sounds, no guarding LOWER EXTREMITIES: 2+ pt pulses, 2+ pitting edema b/l NEUROLOGICAL: Cranial nerves II-XII intact. able to move UE, difficulty with LE d/t swelling. PSYCHIATRIC: Cooperative. Good eye contact. SKIN: Warm, dry, normal turgor Laboratory Results - last 24 hr 09/25/18 09/25/18 09/25/18 14:00 14:00 14:00 WBC 5.8 RBC 3.39 L Hgb 9.8 L Hct 29.1 L MCV 85.9 MCH 28.8 MCHC 33.5 RDW 14.5 D Plt Count 253 MPV 7.5 Absolute Neuts (auto) 4.0 Neutrophils % 69.0 D Lymphocytes % 18.2 D Monocytes % 9.0 Eosinophils % 2.8 Basophils % 1.0 Nucleated RBC % 0 PT with INR 16.10 H INR 1.36 H Sodium 144 Potassium 3.7 Chloride 111 H Carbon Dioxide 29 Anion Gap 5 L BUN 51 H Creatinine 2.4 H Creat Clearance w eGFR 28.04 Random Glucose 139 H Calcium 7.8 L Magnesium 2.0 Total Bilirubin 0.4 AST 22 ALT 35 Alkaline Phosphatase 128 H Creatine Kinase 622 H Creatine Kinase Index 0.8 CK-MB (CK-2) 5.0 H Troponin I 0.05 B-Natriuretic Peptide 25324.5 H Total Protein 5.8 L Albumin 2.0 L CXR: +blunting L lung base, without cardiomegaly. official read pending EKG: NSR, 81bpm, without acute St-t wave changes. qtc 466ms ASSESSMENT/PLAN: 58 y/o M with PMH DM, HTN, HLD, CAD s/p 2 cardiac stents (2016), who presents to the ED c/o SOB over the past two weeks. #Vol overload 2/2 diastolic CHF exacerbation -with recent endorsement of increased fluid intake compounded with poor renal fnc, overload. elevated BNP -repeat ECHO. last done 2018 -will diurese with lasix IV 40mg IVP qd -strict I/o, 2g Na control, daily wts -f/u AM CXR -trend trops. first (-) #?GABI on CKD -recent baseline unknown, in 2017 baseline ~1 -should improve with diuresis -for renal bx as per pt in few months -hold ARB as with GABI -c/t monitor #CAD s/p 2 cardiac stents (2017) -for now will c/w asa, ranexa, plavix use however not documented at pharmacy -will need to find out whether other use - ?PVD #HTN -c/w labetalol -hold ARB as w GABI -likely exacerbated by vol overload #HLD -c/w lipitor #DM -f/u a1c -ISS, BGM ACHS #F/E/N no IVF at this time continue to follow lytes na controlled/diabetic/ heart healthy diet #PPX DVT: Hep 5k SQ TID #Dispo admit to tele Visit type - Emergency Visit Emergency Visit: Yes ED Registration Date: 09/25/18 Care time: The patient presented to the Emergency Department on the above date and was hospitalized for further evaluation of their emergent condition. - New Patient This patient is new to me today: Yes Date on this admission: 09/25/18 - Critical Care Critical Care patient: No
[2018-09-25] MEDS ORDERED: FUROSEMIDE 40 MG/4 ML INJECTABLE VIAL IVPUSH ONE (17:17)
--- NOTE | 2018-09-25 17:20 | PN ---
Teaching Attending Note Name of Resident: Gissel Kerr ATTENDING PHYSICIAN STATEMENT I saw and evaluated the patient. I reviewed the resident's note and discussed the case with the resident. I agree with the resident's findings and plan as documented. SUBJECTIVE:58yo M with PMH DM, HTN, CAD s/p 2 stents, L4/L5 OM, PVD presented to the ER with progressively worsening SOB and cough. progressively worsening over the past 2 weeks. started devloping pedal edema over the past week. was supposed to have kidney bx which he has not followed up on yet. 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 denies CP, fever, chills, orthopnea, N/V/C/D OBJECTIVE: Last Vital Signs Temp Pulse Resp BP Pulse Ox 97.8 F 80 16 189/104 H 96 09/25/18 15:09 09/25/18 15:09 09/25/18 15:09 09/25/18 15:09 09/25/18 15:09 Intake & Output 09/22/18 09/23/18 09/24/18 09/25/18 23:59 23:59 23:59 23:59 Weight 524 lb General NAD, flat affect CV S1 S2 RRR no murmur/rub/gallop Lungs decreased breath sounds L base no wheezing Abdomen soft NT/ND Extremities 3+ pitting edema ASSESSMENT AND PLAN: 58yo M with PMH DM, HTN, CAD s/p 2 stents, L4/L5 vertebral OM, PVD presented to the ER with progressively worsening SOB and cough and found to be in volume overload suspected due to CHF 1. New onset CHF- admit to tele. continuous cardiac monitoring. start lasix 40mg IVP, monitor electrolytes. check echo. strict I&O, daily weights 2. GABI- due to volume overload. will diureses. monitor. consider workup if worsening but appears patient was requiring bx as outpatient 3. HTN urgency- did not take his medications today. will re-start and titrate as needed to optimize control 4. CAD s/p stents- cont ranexa/asa/statin/plavix 5. DM- hold oral agents. iss an bgm 6. hx of L4L5 vertebral OM 7. DVT ppx- hep sq
[2018-09-25] MEDS ORDERED: FUROSEMIDE 40 MG/4 ML INJECTABLE VIAL ONE (17:23)
[2018-09-25] MEDS: RANOLAZINE E.R. 500 MG TABLET (FP) PO SCH (21:21)
[2018-09-25] MEDS: HEPARIN NA (PORCINE) 5,000 UNITS/ML 1ML VIAL SQ SCH (21:21)
[2018-09-25] MEDS: ATORVASTATIN CA 40 MG TABLET (FP) PO SCH (21:22)
[2018-09-25] MEDS: LABETALOL HCL 200 MG TABLET (FP) PO SCH (21:22)
[2018-09-25] MEDS: INSULIN SLIDING SCALE (NOVOLOG) 1 VIAL SQ SCH (21:24)
[2018-09-26] MEDS: HEPARIN NA (PORCINE) 5,000 UNITS/ML 1ML VIAL SQ SCH ×3 (05:57→22:30)
[2018-09-26] MEDS: INSULIN SLIDING SCALE (NOVOLOG) 1 VIAL SQ SCH ×4 (06:01→22:39)
[2018-09-26 07:32] LABS: ALBUMIN 2.1 g/dl (3.4-5.0); ALK PHOS 134 U/L (45-117); ANION GAP 6 MMOL/L (8-16); BILIRUBIN,TOTAL 0.3 mg/dL (0.2-1); BLOOD UREA NITROGEN 52 mg/dL (7-18); CALCIUM 7.6 mg/dL (8.5-10.1); CHLORIDE 110 mmol/L (98-107); CO2 28 mmol/L (21-32); CREATININE 2.5 mg/dL (0.55-1.3); GLUCOSE,RANDOM 94 mg/dL (74-106); MAGNESIUM 1.9 mg/dL (1.8-2.4); POTASSIUM 3.7 mmol/L (3.5-5.1); SGOT/AST 22 U/L (15-37); SGPT/ALT 34 U/L (13-61); SODIUM 144 mmol/L (136-145); TOT PROT 5.9 g/dl (6.4-8.2)
[2018-09-26] MEDS: TAMSULOSIN HCL 0.4 MG CAP PO SCH (09:07)
[2018-09-26] MEDS: LABETALOL HCL 200 MG TABLET (FP) PO SCH ×2 (09:07→22:30)
[2018-09-26] MEDS: CLOPIDOGREL BISULFATE 75 MG TABLET (FP) PO SCH (09:07)
[2018-09-26] MEDS: RANOLAZINE E.R. 500 MG TABLET (FP) PO SCH ×2 (09:07→22:30)
[2018-09-26] MEDS: ASPIRIN COATED 81 MG TABLET.EC PO SCH (09:07)
[2018-09-26] MEDS ORDERED: FUROSEMIDE 40 MG/4 ML INJECTABLE VIAL IVPUSH SCH (10:00)
--- NOTE | 2018-09-26 12:04 | PN ---
Progress Note (short form) - Note Progress Note: states he feels slightly better than arrival but not at baseline. continues to have non productive cough. denies CP, fever, chills, orthopnea Current Medications Generic Name Dose Route Start Last Admin Trade Name Elizabeth PRN Reason Stop Dose Admin Aspirin 81 mg 09/26/18 10:00 09/26/18 09:07 Ecotrin - PO 81 mg DAILY SANGEETHA Administration Atorvastatin Calcium 40 mg 09/25/18 22:00 09/25/18 21:22 Lipitor - PO 40 mg HS SANGEETHA Administration Clopidogrel Bisulfate 75 mg 09/26/18 10:00 09/26/18 09:07 Plavix - PO 75 mg DAILY SANGEETHA Administration Furosemide 40 mg 09/26/18 10:00 09/26/18 09:07 Lasix Injection - IVPUSH 40 mg DAILY SANGEETHA Administration Heparin Sodium (Porcine) 5,000 unit 09/25/18 22:00 09/26/18 05:57 Heparin - SQ 5,000 unit TID SANGEETHA Administration Insulin Aspart 1 vial 09/25/18 22:00 09/26/18 11:40 Novolog Vial Sliding Scale - SQ Not Given ACHS [facility] Protocol Labetalol HCl 200 mg 09/25/18 22:00 09/26/18 09:07 Normodyne - PO 200 mg BID SANGEETHA Administration Ranolazine 500 mg 09/25/18 22:00 09/26/18 09:07 Ranexa - PO 500 mg BID SANGEETHA Administration Tamsulosin HCl 0.4 mg 09/26/18 08:30 09/26/18 09:07 Flomax - PO 0.4 mg DAILY@0830 SANGEETHA Administration Last Vital Signs Temp Pulse Resp BP Pulse Ox 97.4 F L 20 L 79 H 186/109 H 94 L 09/26/18 09:58 09/26/18 09:58 09/26/18 10:40 09/26/18 10:40 09/26/18 09:00 Intake & Output 09/23/18 09/24/18 09/25/18 09/26/18 23:59 23:59 23:59 23:59 Intake Total 10 260 Output Total 1220 Balance 10 -960 Weight 283 lb 6.4 oz 282 lb 12.8 oz General NAD, flat affect CV S1 S2 RRR no murmur/rub/gallop Lungs decreased breath sounds L base no wheezing Abdomen soft NT/ND Extremities 2+ pitting edema CBCD WBC 5.8 K/mm3 (4.0-10.0) 09/25/18 14:00 RBC 3.39 M/mm3 (4.00-5.60) L 09/25/18 14:00 Hgb 9.8 GM/dL (11.7-16.9) L 09/25/18 14:00 Hct 29.1 % (35.4-49) L 09/25/18 14:00 MCV 85.9 fl (80-96) 09/25/18 14:00 MCHC 33.5 g/dl (32.0-35.9) 09/25/18 14:00 RDW 14.5 % (11.9-15.9) D 09/25/18 14:00 Plt Count 253 K/MM3 (134-434) 09/25/18 14:00 MPV 7.5 fl (7.5-11.1) 09/25/18 14:00 CMP Sodium 144 mmol/L (136-145) 09/26/18 05:30 Potassium 3.7 mmol/L (3.5-5.1) 09/26/18 05:30 Chloride 110 mmol/L (98-107) H 09/26/18 05:30 Carbon Dioxide 28 mmol/L (21-32) 09/26/18 05:30 Anion Gap 6 MMOL/L (8-16) L 09/26/18 05:30 BUN 52 mg/dL (7-18) H 09/26/18 05:30 Creatinine 2.5 mg/dL (0.55-1.3) H 09/26/18 05:30 Creat Clearance w eGFR 26.75 (>60) 09/26/18 05:30 Calcium 7.6 mg/dL (8.5-10.1) L 09/26/18 05:30 Total Bilirubin 0.3 mg/dL (0.2-1) 09/26/18 05:30 AST 22 U/L (15-37) 09/26/18 05:30 ALT 34 U/L (13-61) 09/26/18 05:30 Alkaline Phosphatase 134 U/L (45-117) H 09/26/18 05:30 Total Protein 5.9 g/dl (6.4-8.2) L 09/26/18 05:30 Albumin 2.1 g/dl (3.4-5.0) L 09/26/18 05:30 ASSESSMENT AND PLAN: 58yo M with PMH DM, HTN, CAD s/p 2 stents, L4/L5 vertebral OM, PVD presented to the ER with progressively worsening SOB and cough and found to be in volume overload suspected due to CHF 1. New onset CHF-modest improvement. no change in weight. will increase lasix to 40mg BID. monitor electrolytes. check echo. strict I&O, daily weights 2. Acute on CKD- due to volume overload. non ogliuric. will diureses. monitor. consider workup if worsening but appears patient was requiring bx as outpatient 3. HTN urgency- uncontrolled. start hydralazine 10mg TID and titrate to optimize control. holding ARB in setting of GABI 4. CAD s/p stents- cont ranexa/asa/statin/plavix 5. DM- hold oral agents. iss an bgm 6. hx of L4L5 vertebral OM 7. DVT ppx- hep sq Visit type - Emergency Visit Emergency Visit: Yes ED Registration Date: 09/25/18 Care time: The patient presented to the Emergency Department on the above date and was hospitalized for further evaluation of their emergent condition. - New Patient This patient is new to me today: No - Critical Care Critical Care patient: No - Discharge Referral Referred to [facility] No
[2018-09-26] MEDS: hydrALAZINE HCL 10 MG TABLET PO SCH ×2 (13:12→22:30)
[2018-09-26] MEDS: FUROSEMIDE 40 MG/4 ML INJECTABLE VIAL IVPUSH SCH (13:12)
--- NOTE | 2018-09-26 17:07 | EKG ---
Test Reason : Blood Pressure : / mmHG Vent. Rate : 081 BPM Atrial Rate : 081 BPM P-R Int : 178 ms QRS Dur : 076 ms QT Int : 402 ms P-R-T Axes : 039 -10 241 degrees QTc Int : 466 ms NORMAL SINUS RHYTHM ANTERIOR INFARCT , AGE UNDETERMINED ABNORMAL ECG WHEN COMPARED WITH ECG OF 23-MAY-2017 23:19, ANTERIOR INFARCT IS NOW PRESENT NONSPECIFIC T WAVE ABNORMALITY NOW EVIDENT IN INFERIOR LEADS NONSPECIFIC T WAVE ABNORMALITY NOW EVIDENT IN ANTEROLATERAL LEADS Confirmed by SHIMA OCASIO MD ([id number]) on 09/26/2018 5:07:14 PM Referred By: Confirmed By:SHIMA OCASIO MD
[2018-09-26] MEDS: ATORVASTATIN CA 40 MG TABLET (FP) PO SCH (22:30)
[2018-09-27] MEDS ORDERED: guaiFENesin/D-METHORPHAN HB 10 ML UNIT-DOSE CUPS PO ONE (02:11)
[2018-09-27] MEDS: hydrALAZINE HCL 10 MG TABLET PO SCH ×3 (05:43→22:28)
[2018-09-27] MEDS: HEPARIN NA (PORCINE) 5,000 UNITS/ML 1ML VIAL SQ SCH ×3 (05:44→22:27)
[2018-09-27] MEDS: FUROSEMIDE 40 MG/4 ML INJECTABLE VIAL IVPUSH SCH ×2 (05:44→13:30)
[2018-09-27] MEDS: INSULIN SLIDING SCALE (NOVOLOG) 1 VIAL SQ SCH ×4 (07:03→22:34)
[2018-09-27 08:59] LABS: HEMATOCRIT 28.5 % (35.4-49); HEMOGLOBIN 9.7 GM/dL (11.7-16.9); MCHC 34.1 g/dl (32.0-35.9); MEAN PLT VOLUME 7.7 fl (7.5-11.1); PLATELET COUNT 243 K/MM3 (134-434); RBC 3.35 M/mm3 (4.00-5.60); RDW 14.3 % (11.9-15.9); WHITE BLOOD COUNT 4.6 K/mm3 (4.0-10.0)
[2018-09-27 09:10] LABS: ANION GAP 4 MMOL/L (8-16); BLOOD UREA NITROGEN 50 mg/dL (7-18); CALCIUM 7.9 mg/dL (8.5-10.1); CHLORIDE 108 mmol/L (98-107); CO2 30 mmol/L (21-32); CREATININE 2.5 mg/dL (0.55-1.3); GLUCOSE,RANDOM 111 mg/dL (74-106); POTASSIUM 3.4 mmol/L (3.5-5.1); SODIUM 143 mmol/L (136-145)
[2018-09-27] MEDS: RANOLAZINE E.R. 500 MG TABLET (FP) PO SCH ×2 (09:14→22:29)
[2018-09-27] MEDS: CLOPIDOGREL BISULFATE 75 MG TABLET (FP) PO SCH (09:14)
[2018-09-27] MEDS: LABETALOL HCL 200 MG TABLET (FP) PO SCH ×2 (09:14→22:29)
[2018-09-27] MEDS: TAMSULOSIN HCL 0.4 MG CAP PO SCH (09:14)
[2018-09-27] MEDS: ASPIRIN COATED 81 MG TABLET.EC PO SCH (09:14)
[2018-09-27] MEDS ORDERED: POTASSIUM CHLORIDE TABS 20 MEQ TABLET.ER (FP) PO ONE (09:51)
--- NOTE | 2018-09-27 12:53 | PN ---
Teaching Attending Note Name of Resident: Gissel Kerr ATTENDING PHYSICIAN STATEMENT I saw and evaluated the patient. I reviewed the resident's note and discussed the case with the resident. I agree with the resident's findings and plan as documented. SUBJECTIVE:breathing is improving. able to ambulate to bathroom with minimal difficulty. denies CP, SOB, fever, chills, N/V/C/D OBJECTIVE: Last Vital Signs Temp Pulse Resp BP Pulse Ox 98.2 F 76 20 172/99 H 96 09/27/18 10:00 09/27/18 10:00 09/27/18 10:00 09/27/18 10:00 09/27/18 09:00 Intake & Output 09/24/18 09/25/18 09/26/18 09/27/18 23:59 23:59 23:59 23:59 Intake Total 10 2100 15 Output Total 2570 950 Balance 01 -761 -710 Weight 283 lb 6.4 oz 282 lb 12.8 oz 279 lb 12.8 oz General NAD Lungs decreased L base Extremities 2+ pitting edema ASSESSMENT AND PLAN: 58yo M with PMH DM, HTN, CAD s/p 2 stents, L4/L5 vertebral OM, PVD presented to the ER with progressively worsening SOB and cough and found to be in volume overload suspected due to CHF 1. New onset CHF-3 lb weight loss. cont lasix current dosing. monitor electrolytes. check echo. strict I&O, daily weights 2. Acute on CKD- due to volume overload. non ogliuric. will diureses. monitor. consider workup if worsening but appears patient was requiring bx as outpatient 3. HTN urgency-improved but above goal. cont current treatment, may need to increase hydralazine if persists. holding ARB in setting of GABI 4. hypokalemia- kcl 5. CAD s/p stents- cont ranexa/asa/statin/plavix 6. DM- hold oral agents. iss an bgm 7. hx of L4L5 vertebral OM 8. DVT ppx- hep sq
--- NOTE | 2018-09-27 13:49 | PN ---
Physical Exam: SUBJECTIVE: Patient seen and examined at bedside. States that he feels better, as his lower extremities are less swollen. No further complaint. OBJECTIVE: Vital Signs Period Temp Pulse Resp BP Sys/Lopez Pulse Ox Last 24 Hr 98.2 F-98.8 F 73-78 18-20 170-174/93-100 95-96 GENERAL: The patient is pleasant. awake, alert, and fully oriented, in no acute distress. HEAD: Normal with no signs of trauma. EYES: PERRL, extraocular movements intact, sclera anicteric, conjunctiva clear. ENT: Ears normal, nares patent, oropharynx clear without exudates, moist mucous membranes. NECK: Trachea midline, supple. LUNGS: Breath sounds equal, clear to auscultation bilaterally, no wheezes, no crackles, no accessory muscle use. HEART: Regular rate and rhythm, S1, S2 without murmur, rub or gallop. ABDOMEN: Soft, obese, nontender, nondistended, normoactive bowel sounds, no guarding, no rebound EXTREMITIES: 2+ pt pulses, warm, well-perfused. 2+ pitting edema NEUROLOGICAL: Cranial nerves II through XII grossly intact. sensation intact. able to lift lower extremities today. PSYCH: Normal mood, normal affect. SKIN: Warm, dry, normal turgor Laboratory Results 09/27/18 09/27/18 08:15 08:15 WBC 4.6 Hgb 9.7 L Hct 28.5 L Plt Count 243 Sodium 143 Potassium 3.4 L Chloride 108 H BUN 50 H Creatinine 2.5 H Active Medications Generic Name Dose Route Start Last Admin Trade Name Julianoq PRN Reason Stop Dose Admin Aspirin 81 mg 09/26/18 10:00 09/27/18 09:14 Ecotrin - PO 81 mg DAILY SANGEETHA Administration Atorvastatin Calcium 40 mg 09/25/18 22:00 09/26/18 22:30 Lipitor - PO 40 mg HS SANGEETHA Administration Clopidogrel Bisulfate 75 mg 09/26/18 10:00 09/27/18 09:14 Plavix - PO 75 mg DAILY SANGEETHA Administration Furosemide 40 mg 09/26/18 14:00 09/27/18 13:30 Lasix Injection - IVPUSH 40 mg BID@0600,1400 SANGEETHA Administration Heparin Sodium (Porcine) 5,000 unit 09/25/18 22:00 09/27/18 13:30 Heparin - SQ 5,000 unit TID SANGEETHA Administration Hydralazine HCl 10 mg 09/26/18 14:00 09/27/18 13:31 Apresoline - PO 10 mg TID SANGEETHA Administration Insulin Aspart 1 vial 09/25/18 22:00 09/27/18 11:47 Novolog Vial Sliding Scale - SQ Not Given ACHS [facility] Protocol Labetalol HCl 200 mg 09/25/18 22:00 09/27/18 09:14 Normodyne - PO 200 mg BID SANGEETHA Administration Ranolazine 500 mg 09/25/18 22:00 09/27/18 09:14 Ranexa - PO 500 mg BID SANGEETHA Administration Tamsulosin HCl 0.4 mg 09/26/18 08:30 09/27/18 09:14 Flomax - PO 0.4 mg DAILY@0830 SANGEETHA Administration ASSESSMENT/PLAN: 58 y/o M with PMH DM, HTN, HLD, CAD s/p 2 cardiac stents (2016), who presents to the ED c/o SOB over the past two weeks. #New diastolic CHF exacerbation -c/w lasix 40mg IVP BID. if continues to improve, may be able to switch to PO tomorrow. -strict I/o, 2g Na control, daily wts -f/u ECHO. not done yet -trend trops. first (-) #?GABI on CKD -recent baseline unknown, in 2017 baseline ~1 -for renal bx as per pt in few months -hold ARB as with GABI -c/t monitor #CAD s/p 2 cardiac stents (2016) -c/w asa, ranexa, plavix #HTN urgency-improved -c/w labetalol and hydralazine -hold ARB as w GABI #HLD -c/w lipitor #DM -f/u a1c -ISS, BGM ACHS #F/E/N no IVF at this time continue to follow lytes na controlled/diabetic/ heart healthy diet #PPX DVT: Hep 5k SQ TID #Dispo tele monitoring can likely d/c tomorrow on PO lasix will watch K levels f/u ECHO Visit type - Emergency Visit Emergency Visit: No - New Patient This patient is new to me today: No - Critical Care Critical Care patient: No
[2018-09-27] MEDS: guaiFENesin/D-METHORPHAN HB 10 ML UNIT-DOSE CUPS PO PRN (22:27)
[2018-09-27] MEDS: ATORVASTATIN CA 40 MG TABLET (FP) PO SCH (22:28)
[2018-09-28] MEDS: HEPARIN NA (PORCINE) 5,000 UNITS/ML 1ML VIAL SQ SCH ×3 (06:08→21:47)
[2018-09-28] MEDS: guaiFENesin/D-METHORPHAN HB 10 ML UNIT-DOSE CUPS PO PRN (06:08)
[2018-09-28] MEDS: FUROSEMIDE 40 MG/4 ML INJECTABLE VIAL IVPUSH SCH ×2 (06:08→13:45)
[2018-09-28] MEDS: hydrALAZINE HCL 10 MG TABLET PO SCH (06:08)
[2018-09-28] MEDS: INSULIN SLIDING SCALE (NOVOLOG) 1 VIAL SQ SCH ×4 (06:18→21:52)
[2018-09-28 06:56] LABS: ANION GAP 5 MMOL/L (8-16); BLOOD UREA NITROGEN 53 mg/dL (7-18); CALCIUM 7.4 mg/dL (8.5-10.1); CHLORIDE 110 mmol/L (98-107); CO2 27 mmol/L (21-32); CREATININE 2.7 mg/dL (0.55-1.3); GLUCOSE,RANDOM 92 mg/dL (74-106); MAGNESIUM 1.9 mg/dL (1.8-2.4); PHOSPHOROUS 4.2 mg/dL (2.5-4.9); POTASSIUM 3.6 mmol/L (3.5-5.1); SODIUM 142 mmol/L (136-145)
[2018-09-28] MEDS: LABETALOL HCL 200 MG TABLET (FP) PO SCH (10:37)
[2018-09-28] MEDS: RANOLAZINE E.R. 500 MG TABLET (FP) PO SCH ×2 (10:37→21:48)
[2018-09-28] MEDS: CLOPIDOGREL BISULFATE 75 MG TABLET (FP) PO SCH (10:37)
[2018-09-28] MEDS: TAMSULOSIN HCL 0.4 MG CAP PO SCH (10:38)
[2018-09-28] MEDS: ASPIRIN COATED 81 MG TABLET.EC PO SCH (10:38)
--- NOTE | 2018-09-28 12:07 | ECHO ---
Name: FILIPPO RICHARD Exam:Adult Echocardiogram Study Date: 09/28/2018 08:42 AM Age: 58 yrs Reason For Study: VOL OVERLOAD Height: 74 in Weight: 287 lb BSA: 2.5 m2 MMode/2D Measurements & Calculations IVSd: 0.99 cm Ao root diam: 2.9 cm LVIDd: 5.5 cm LA dimension: 2.8 cm LVIDs: 3.7 cm LVPWd: 1.3 cm EDV(Teich): 147.8 ml LVOT diam: 2.0 cm ESV(Teich): 59.9 ml LAV (MOD-bp): 63.8 ml Doppler Measurements & Calculations MV E max abraham: 99.4 cm/sec Ao V2 max: 156.1 cm/sec MV A max abraham: 55.8 cm/sec Ao max P.7 mmHg MV E/A: 1.8 MV dec time: 0.16 sec PANKAJ(V,D): 1.7 cm2 LV V1 max P.7 mmHg MR max abraham: 412.7 cm/sec LV V1 max: 82.5 cm/sec MR max P.6 mmHg TR max abraham: 233.9 cm/sec PA V2 max: 129.0 cm/sec TR max P.3 mmHg PA max P.7 mmHg Med Peak E' Abraham: 5.2 cm/sec PI Vmax: 109.3 cm/sec Med E/e': 19.0 Lat Peak E' Abraham: 8.1 cm/sec Lat E/e': 12.3 Procedure A complete two-dimensional transthoracic echocardiogram was performed (2D, M-mode, Doppler and color flow Doppler). Left Ventricle The left ventricle is normal in size. Left ventricular systolic function is mild to moderately reduce d. Ejection Fraction = 40-45%. There is mild to moderate global hypokinesis of the left ventricle. Right Ventricle The right ventricle is normal size. The right ventricular systolic function is normal. Atria The left atrial size is normal. LA volume index is 25 ml/m2. Right atrial size is normal. Mitral Valve The mitral valve is normal in structure and function. There is mild mitral regurgitation. Tricuspid Valve The tricuspid valve is normal in structure and function. There is mild to moderate tricuspid regurgit ation. Aortic Valve There is mild aortic sclerosis.;. No aortic regurgitation is present. Pulmonic Valve The pulmonic valve is not well visualized. Great Vessels The aortic root is normal size. Pericardium/Pleura Trivial pericardial effusion not hemodynamically significant. Large pleural effusion. Interpretation Summary The left ventricle is normal in size. Left ventricular systolic function is mild to moderately reduced. There is mild to moderate global hypokinesis of the left ventricle. Ejection Fraction = 40-45%. The right ventricular systolic function is normal. The left atrial size is normal. Right atrial size is normal. There is mild mitral regurgitation. There is mild to moderate tricuspid regurgitation. There is mild aortic sclerosis.; Trivial pericardial effusion not hemodynamically significant Large pleural effusion Previous study is not available for comparsion Bud Corral MD 09/28/2018 12:06 PM
[2018-09-28] MEDS: hydrALAZINE HCL 25 MG TABLET (FP) PO SCH ×2 (13:45→21:47)
--- NOTE | 2018-09-28 15:21 | PN ---
Teaching Attending Note Name of Resident: Navdeep Villalpando ATTENDING PHYSICIAN STATEMENT I saw and evaluated the patient. I reviewed the resident's note and discussed the case with the resident. I agree with the resident's findings and plan as documented. SUBJECTIVE:states breathing is better. denies Cp, SOB, fever, chills, N/V/C/D OBJECTIVE: Last Vital Signs Temp Pulse Resp BP Pulse Ox 98.6 F 74 20 160/98 95 09/28/18 09:00 09/28/18 09:00 09/28/18 09:00 09/28/18 11:00 09/28/18 09:00 Intake & Output 09/25/18 09/26/18 09/27/18 09/28/18 23:59 23:59 23:59 23:59 Intake Total 10 2100 1225 0 Output Total 2570 3050 Balance 10 -397 -5963 0 Weight 283 lb 6.4 oz 282 lb 12.8 oz 279 lb 12.8 oz 279 lb 9.6 oz General NAD Lungs decreased L base Extremities 2+ pitting edema ASSESSMENT AND PLAN: 58yo M with PMH DM, HTN, CAD s/p 2 stents, L4/L5 vertebral OM, PVD presented to the ER with progressively worsening SOB and cough and found to be in volume overload suspected due to CHF 1. New onset CHF-modest improvement. cont diuresis with lasix BID. Echo done showing global hypokinesis EF 40-45% upon further reviewing the chart he had NMST on 09/04/17 with + ischemia and unclear what was done after that. will need to optimize his therapy at this time. any may require repeat stress once euvolemic. consult cardio. will switch labetolol to coreg, will re-start arb once renal function improves. on asa/statin. monitor electrolytes. check echo. strict I&O, daily weights 2. Acute on CKD- due to volume overload. non ogliuric. slowly trending up. obtain renal u/s to ensure no blockage, pt insists he is urinating a lot. will consider nephro eval if worsens. hold ARB. 3. HTN urgency-above goal. increase hydralazine to 25mg TID. holding ARB in setting of GABI 4. hypokalemia- kcl 5. CAD s/p stents- cont ranexa/asa/statin/plavix 6. DM- hold oral agents. iss an bgm 7. hx of L4L5 vertebral OM 8. DVT ppx- hep sq
--- NOTE | 2018-09-28 15:32 | PN ---
Physical Exam: SUBJECTIVE: Patient seen and examined at bedside. States that he feels better, as his lower extremities are less swollen. No further complaint. OBJECTIVE: Vital Signs Period Temp Pulse Resp BP Sys/Lopez Pulse Ox Last 24 Hr 98.4 F-98.6 F 74-79 18-20 160-181/94-102 94-95 GENERAL: The patient is pleasant. awake, alert, and fully oriented, in no acute distress. HEAD: NCAT EYES: PERRL, extraocular movements intact, sclera anicteric, conjunctiva clear. ENT: Ears normal, nares patent, oropharynx clear without exudates, moist mucous membranes. NECK: Trachea midline, supple. LUNGS: crackles at bases HEART: RRR, S1, S2 without murmur, rub or gallop. ABDOMEN: Soft, obese, NTND, normoactive bowel sounds, no guarding, no rebound EXTREMITIES: 2+ pt pulses, warm, well-perfused. 2+ pitting edema NEUROLOGICAL: Cranial nerves II through XII grossly intact. sensation intact. able to lift lower extremities today. PSYCH: Normal mood, normal affect. SKIN: Warm, dry, normal turgor Laboratory Results - last 24 hr 09/27/18 09/27/18 09/28/18 16:24 22:30 05:30 Sodium 142 Potassium 3.6 Chloride 110 H Carbon Dioxide 27 Anion Gap 5 L BUN 53 H Creatinine 2.7 H Creat Clearance w eGFR 24.48 POC Glucometer 113 154 Random Glucose 92 Calcium 7.4 L Phosphorus 4.2 Magnesium 1.9 09/28/18 06:15 Sodium Potassium Chloride Carbon Dioxide Anion Gap BUN Creatinine Creat Clearance w eGFR POC Glucometer 86 Random Glucose Calcium Phosphorus Magnesium Active Medications Generic Name Dose Route Start Last Admin Trade Name Freq PRN Reason Stop Dose Admin Aspirin 81 mg 09/26/18 10:00 09/28/18 10:38 Ecotrin - PO 81 mg DAILY SANGEETHA Administration Atorvastatin Calcium 40 mg 09/25/18 22:00 09/27/18 22:28 Lipitor - PO 40 mg HS SANGEETHA Administration Clopidogrel Bisulfate 75 mg 09/26/18 10:00 09/28/18 10:37 Plavix - PO 75 mg DAILY SANGEETHA Administration Furosemide 40 mg 09/26/18 14:00 09/28/18 13:45 Lasix Injection - IVPUSH 40 mg BID@0600,1400 SANGEETHA Administration Guaifenesin 10 ml 09/27/18 22:20 09/28/18 06:08 Robitussin Dm - PO 10 ml Q8H PRN Administration COUGH Heparin Sodium (Porcine) 5,000 unit 09/25/18 22:00 09/28/18 14:49 Heparin - SQ 5,000 unit TID SANGEETHA Administration Hydralazine HCl 25 mg 09/28/18 11:47 09/28/18 13:45 Apresoline - PO 25 mg TID SANGEETHA Administration Insulin Aspart 1 vial 09/25/18 22:00 09/28/18 11:44 Novolog Vial Sliding Scale - SQ Not Given ACHS [facility] Protocol Labetalol HCl 200 mg 09/25/18 22:00 09/28/18 10:37 Normodyne - PO 200 mg BID SANGEETHA Administration Ranolazine 500 mg 09/25/18 22:00 09/28/18 10:37 Ranexa - PO 500 mg BID SANGEETHA Administration Tamsulosin HCl 0.4 mg 09/26/18 08:30 09/28/18 10:38 Flomax - PO 0.4 mg DAILY@0830 SANGEETHA Administration ECHO 09/28/18 Interpretation Summary The left ventricle is normal in size. Left ventricular systolic function is mild to moderately reduced. There is mild to moderate global hypokinesis of the left ventricle. Ejection Fraction = 40-45%. The right ventricular systolic function is normal. The left atrial size is normal. Right atrial size is normal. There is mild mitral regurgitation. There is mild to moderate tricuspid regurgitation. There is mild aortic sclerosis.; Trivial pericardial effusion not hemodynamically significant Large pleural effusion Previous study is not available for comparsion 58 y/o M with PMH DM, HTN, HLD, CAD s/p 2 cardiac stents (2017), L4/L5 vertebral OM, PVD who presents to the ED c/o SOB over the past two weeks and found to be in volume overload suspected due to CHF #New systolic CHF exacerbation - modest improvement. -c/w lasix 40mg IVP BID. if continues to improve, may be able to switch to PO tomorrow. -strict I/o, 2g Na control, daily wts -ECHO - EF 40-45%, mild to moderate global hypokinesis of LV, Large pleural effusion -NMST on 09/04/17 with + ischemia and unclear what was done after that. will need to optimize his therapy at this time. any may require repeat stress once euvolemic -c/w ASA/statin -re-start arb once renal function improves -will switch labetolol to coreg 25mg bid -Cardio consult (Terry) -trops 0.05..0.06...0.05 -PT eval #?GABI on CKD 2/2 volume overload -non ogliuric -recent baseline unknown, in 2017 baseline ~1 -consider workup if worsening but appears patient was requiring bx as outpatient -hold ARB as with GABI -monitor Cr -c/w lasix -f/u Renal U/S to ensure no obstruction. will consider nephro eval if worsens #CAD s/p 2 cardiac stents (2016) -c/w asa, ranexa, plavix, statin #HTN urgency-improved -will switch labetolol to coreg 25mg bid and increase hydralazine as needed ( today 10 to 25tid) -hold ARB as w GABI #hx of L4L5 vertebral OM #HLD -c/w lipitor #DM -A1c 4.5 -ISS, BGM ACHS, hold oral agents #F/E/N no IVF at this time continue to follow lytes na controlled/diabetic/ heart healthy diet #PPX DVT: Hep 5k SQ TID #Dispo tele monitoring Visit type - Emergency Visit Emergency Visit: Yes ED Registration Date: 09/25/18 Care time: The patient presented to the Emergency Department on the above date and was hospitalized for further evaluation of their emergent condition. - New Patient This patient is new to me today: Yes Date on this admission: 09/28/18 - Critical Care Critical Care patient: No
[2018-09-28] MEDS ORDERED: INSULIN (NOVOLOG) ASPART 100 UNITS/ML 10ML VIAL ONE (21:20)
[2018-09-28] MEDS: ATORVASTATIN CA 40 MG TABLET (FP) PO SCH (21:47)
[2018-09-28] MEDS: ISOSORBIDE MONONITRATE 30 MG TAB.SR.24H (FP) PO SCH (21:47)
[2018-09-28] MEDS: LABETALOL HCL 100 MG TABLET (FP) PO SCH (21:48)
[2018-09-28] MEDS ORDERED: CARVEDILOL 25 MG TABLET (FP) PO SCH (22:00)
[2018-09-29] MEDS: INSULIN SLIDING SCALE (NOVOLOG) 1 VIAL SQ SCH ×3 (06:06→23:21)
[2018-09-29] MEDS: hydrALAZINE HCL 25 MG TABLET (FP) PO SCH ×3 (06:07→23:21)
[2018-09-29] MEDS: FUROSEMIDE 40 MG/4 ML INJECTABLE VIAL IVPUSH SCH ×2 (06:07→14:55)
[2018-09-29] MEDS: HEPARIN NA (PORCINE) 5,000 UNITS/ML 1ML VIAL SQ SCH ×3 (06:07→23:21)
[2018-09-29 08:32] LABS: ANION GAP 5 MMOL/L (8-16); BLOOD UREA NITROGEN 53 mg/dL (7-18); CALCIUM 7.7 mg/dL (8.5-10.1); CHLORIDE 106 mmol/L (98-107); CO2 30 mmol/L (21-32); CREATININE 2.8 mg/dL (0.55-1.3); GLUCOSE,RANDOM 96 mg/dL (74-106); MAGNESIUM 1.7 mg/dL (1.8-2.4); PHOSPHOROUS 4.1 mg/dL (2.5-4.9); POTASSIUM 3.6 mmol/L (3.5-5.1); SODIUM 142 mmol/L (136-145)
[2018-09-29] MEDS ORDERED: MAGNESIUM SULF 50% (8.12 MEQ/2 ML-1 GM VIAL) IVPB ONE (09:00)
[2018-09-29] MEDS ORDERED: NIFEdipine 10 MG CAPSULE (FP) PO ONE (10:00)
[2018-09-29] MEDS: guaiFENesin/D-METHORPHAN HB 10 ML UNIT-DOSE CUPS PO PRN (10:32)
--- NOTE | 2018-09-29 10:32 | CON.CARD ---
Consult Consult Specialty:: Cardiology Referred by:: Medicine Reason for Consultation:: CHF - History of Present Illness Chief Complaint: CHF History of Present Illness: 58M h/o DM, HTN, HLD, CAD s/p stents x2 in 2017 p/w dyspnea. Sees Dr. Perez for cardio. Admitted with concern for CHF exacerbation, had recently increased fluid intake after being admitted to [facility] in recent past for DKA. Has been diuresed on the floor with IV lasix. Echo here showed reduced EF compared to prior, labetolol was increased per Dr. Perez and home meds for BP were resumed as high BP likely contributing to reduced EF. SOB improved since admission, still has edema although this has come down as well. 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[employer] Home Medications - Allergies Allergies/Adverse Reactions: Allergies Allergy/AdvReac Type Severity Reaction Status Date / Time No Known Allergies Allergy Verified 09/25/18 13:08 - Home Medications Home Medications: Ambulatory Orders Glipizide [Glucotrol] 5 mg PO BID 04/08/17 Aspirin [Aspirin EC] 81 mg PO DAILY 09/25/18 Atorvastatin Ca [Lipitor] 40 mg PO HS 09/25/18 Clopidogrel Bisulfate [Plavix] 75 mg PO DAILY 09/25/18 Ergocalciferol (Vitamin D2) [Vitamin D2] 50,000 unit PO WEEKLY 09/25/18 Isosorbide Mononitrate [Isosorbide Mononitrate ER] 30 mg PO DAILY 09/25/18 Labetalol HCl [Normodyne -] 200 mg PO BID 09/25/18 Losartan Potassium 50 mg DAILY 09/25/18 Metolazone [Zaroxolyn -] 5 mg PO DAILY 09/25/18 Ranolazine [Ranexa] 500 mg PO BID 09/25/18 Tamsulosin HCl [Flomax] 0.4 mg PO DAILY 09/25/18 Nifedipine ER [Procardia XL -] 90 mg PO DAILY 09/29/18 Family Disease History - Family Disease History Family History: Unremarkable Review of Systems - Review of Systems Constitutional: reports: No Symptoms Eyes: reports: No Symptoms HENT: reports: No Symptoms Neck: reports: No Symptoms Cardiovascular: reports: No Symptoms Respiratory: reports: No Symptoms Gastrointestinal: reports: No Symptoms Genitourinary: reports: No Symptoms Musculoskeletal: reports: No Symptoms Integumentary: reports: No Symptoms Neurological: reports: No Symptoms Endocrine: reports: No Symptoms Hematology/Lymphatic: reports: No Symptoms Psychiatric: reports: No Symptoms Vital Signs: Vital Signs Temperature 98.0 F 09/29/18 05:00 Pulse Rate 68 09/29/18 05:00 Respiratory Rate 20 09/29/18 05:00 Blood Pressure 172/87 H 09/29/18 05:00 O2 Sat by Pulse Oximetry (%) 99 09/28/18 21:00 Constitutional: Yes: Well Nourished, No Distress, Calm Eyes: Yes: Conjunctiva Clear, EOM Intact HENT: Yes: Atraumatic, Normocephalic Neck: Yes: Supple, Trachea Midline Respiratory: Yes: Regular, CTA Bilaterally Gastrointestinal: Yes: Normal Bowel Sounds, Soft Cardiovascular: Yes: Regular Rate and Rhythm JVD: No Carotid Bruit: No PMI: Non-Displaced Heart Sounds: Yes: S1, S2 Musculoskeletal: No: Back Pain Extremities: No: Cold Edema: Yes Edema: LLE: 2+, RLE: 2+ Peripheral Pulses WNL: Yes Peripheral Pulses: 2+ Left Doralis Pedis, 2+ Right Dorsalis Pedis Integumentary: No: Jaundice Neurological: Yes: Alert, Oriented Psychiatric: No: Agitated - Other Data Labs, Other Data: CBC, BMP 09/27/18 08:15 09/29/18 07:20 INR, PTT INR 1.36 (0.83-1.09) H 09/25/18 14:00 Assessment/Plan [facility] 10/2017 planned staged PCI of mid LAD [facility] 09/2017 (for inf ischemia on MPI) mild RCA, 80-90% LCx s/p FER, 70-80% mLAD. EDP 25->15 post nitro, EF 50% Echo 05/2018 mildly dilated LV, mild conc LVH, with discrete upper septal component, overal nl LV function EF 55%LA pressure uncertain, no RWMA,nl RV, mild MR, at least mild pulm HTN, mild MRRVSP at least 48 mmHg echo 09/2018 nl LV size, mild to mod reduced LV function EF 40-45%, RV nl, nl biatrial size, mild MR, mild to mod TR, mild ao sclerosis, trivial pericardial effusion, lg pleural effusion tele: sinus Acute systolic HF exacerbation - receiving lasix 40 mg IV BID, wt 282->278 lbs, Cr 2.4 on admission, now 2.8 - lg pleural effusion on echo - EF 40-45% on echo here, reportedly reduced function compared to prior in office - holding ARB for GABI - on labetolol at increased dose today - continue lasix 40 mg IV BID, respiratory status improving however remains volume up GABI on CKD - per outpatient notes reportedly Cr 1.8 in 04/2018, had been planning for outpatient kidney biopsy - now Cr 2.8, monitoring with diuresis - renal u/s no obstruction CAD - s/p FER most recently 09/2017, 10/2017 - on aspirin and plavix HTN - on labetolol 200 mg BID as outpatient, increased to 300 mg BID here - on nifedipine, nitrates - hydralazine increased here for improved BP control, uptitrate as tolerated for improved BP control pulm HTN - mild on echo, likely due to diastolic dysfunction cerebral atherosclerosis - LICA plaque noted 2016 - on aspirin, plavix, statin PAD - hx L SFA stent, 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
[2018-09-29] MEDS: ASPIRIN COATED 81 MG TABLET.EC PO SCH (10:33)
[2018-09-29] MEDS: LABETALOL HCL 100 MG TABLET (FP) PO SCH ×2 (10:33→23:22)
[2018-09-29] MEDS: RANOLAZINE E.R. 500 MG TABLET (FP) PO SCH ×2 (10:33→23:22)
[2018-09-29] MEDS: TAMSULOSIN HCL 0.4 MG CAP PO SCH (10:33)
[2018-09-29] MEDS: CLOPIDOGREL BISULFATE 75 MG TABLET (FP) PO SCH (10:34)
[2018-09-29] MEDS: ISOSORBIDE MONONITRATE 30 MG TAB.SR.24H (FP) PO SCH (10:34)
[2018-09-29] MEDS: NIFEdipine E.R. 90 MG TABLET (FP) PO SCH (10:38)
--- NOTE | 2018-09-29 10:49 | PN ---
Teaching Attending Note Name of Resident: Navdeep Villalpando ATTENDING PHYSICIAN STATEMENT I saw and evaluated the patient. I reviewed the resident's note and discussed the case with the resident. I agree with the resident's findings and plan as documented. SUBJECTIVE:states breathing is improving but also now has a non productive cough. can lay more flat when sleeping. denies CP, SOB, fever, chills, N/V/C/D OBJECTIVE: Last Vital Signs Temp Pulse Resp BP Pulse Ox 98.0 F 68 20 172/87 H 99 09/29/18 05:00 09/29/18 05:00 09/29/18 05:00 09/29/18 05:00 09/28/18 21:00 Intake & Output 09/26/18 09/27/18 09/28/18 09/29/18 23:59 23:59 23:59 23:59 Intake Total 2100 1225 300 Output Total 2570 3050 800 Balance -470 -1825 -500 Weight 282 lb 12.8 oz 279 lb 12.8 oz 279 lb 9.6 oz 278 lb 9.6 oz General NAD Lungs decreased L base Extremities 2+ pitting edema ASSESSMENT AND PLAN: 58yo M with PMH DM, HTN, CAD s/p 2 stents, L4/L5 vertebral OM, PVD presented to the ER with progressively worsening SOB and cough and found to be in volume overload suspected due to CHF 1. New onset systolic CHF-as per cardio has +stress in 09/2017 and had stent x2 placed at that time. goal at this time is to optimize BP as likely culprit of hypokinesis seen on echo. cont with lasix 40mg BID, may need to increase if he only shows modest improvement based on exam although pt is stating he is clinically improved. increase labetolol, start imdur and nifedipine per cardio. titrate to optimize control. strict I&O, daily weights 2. Acute on CKD- due to volume overload. non ogliuric. will call PMD to obtaine baseline values as previous here is 2 years ago. renal u/s not suggestive of any acute disease or obstruction. will consider nephro eval if worsens. hold ARB. 3. HTN urgency-above goal.medication adjustment as above. holding ARB in setting of GABI 4. hypokalemia- kcl po 5. CAD s/p stents- cont ranexa/asa/statin/plavix 6. DM- hold oral agents. iss an bgm 7. hx of L4L5 vertebral OM 8. DVT ppx- hep sq
--- NOTE | 2018-09-29 15:00 | PN ---
Physical Exam: SUBJECTIVE: Patient seen and examined at bedside. States that he feels better, as his lower extremities are less swollen. can lay more flat when sleeping. No further complaint. denies fever, chills, cp, sob, n/v/d. OBJECTIVE: Vital Signs Period Temp Pulse Resp BP Sys/Lopez Pulse Ox Last 24 Hr 97.7 F-98.7 F 68-76 18-20 152-188/81-107 99 GENERAL: The patient is pleasant. AOX3 NAD HEAD: NCAT EYES: PERRL, extraocular movements intact, sclera anicteric, conjunctiva clear. ENT: Ears normal, nares patent, oropharynx clear without exudates, MMM NECK: Trachea midline, supple. LUNGS: crackles at bases, improving HEART: RRR, S1, S2 without murmur, rub or gallop. ABDOMEN: Soft, obese, NTND, normoactive bowel sounds, no guarding, no rebound EXTREMITIES: 2+ pt pulses, warm, well-perfused. 2+ pitting edema, improving NEUROLOGICAL: Cranial nerves II through XII grossly intact. sensation intact. able to lift lower extremities today. PSYCH: Normal mood, normal affect. SKIN: Warm, dry, normal turgor Laboratory Results - last 24 hr 09/28/18 09/28/18 09/29/18 17:10 21:49 05:53 Sodium Potassium Chloride Carbon Dioxide Anion Gap BUN Creatinine Creat Clearance w eGFR POC Glucometer 104 126 97 Random Glucose Calcium Phosphorus Magnesium 09/29/18 07:20 Sodium 142 Potassium 3.6 Chloride 106 Carbon Dioxide 30 Anion Gap 5 L BUN 53 H Creatinine 2.8 H Creat Clearance w eGFR 23.47 POC Glucometer Random Glucose 96 Calcium 7.7 L Phosphorus 4.1 Magnesium 1.7 L Active Medications Generic Name Dose Route Start Last Admin Trade Name Freq PRN Reason Stop Dose Admin Aspirin 81 mg 09/26/18 10:00 09/29/18 10:33 Ecotrin - PO 81 mg DAILY SANGEETHA Administration Atorvastatin Calcium 40 mg 09/25/18 22:00 09/28/18 21:47 Lipitor - PO 40 mg HS SANGEETHA Administration Clopidogrel Bisulfate 75 mg 09/26/18 10:00 09/29/18 10:34 Plavix - PO 75 mg DAILY SANGEETHA Administration Furosemide 40 mg 09/26/18 14:00 09/29/18 06:07 Lasix Injection - IVPUSH 40 mg BID@0600,1400 SANGEETHA Administration Guaifenesin 10 ml 09/27/18 22:20 09/29/18 10:32 Robitussin Dm - PO 10 ml Q8H PRN Administration COUGH Heparin Sodium (Porcine) 5,000 unit 09/25/18 22:00 09/29/18 06:07 Heparin - SQ 5,000 unit TID SANGEETHA Administration Hydralazine HCl 25 mg 09/28/18 11:47 09/29/18 06:07 Apresoline - PO 25 mg TID SANGEETHA Administration Insulin Aspart 1 vial 09/25/18 22:00 09/29/18 06:06 Novolog Vial Sliding Scale - SQ Not Given ACHS [facility] Protocol Isosorbide Mononitrate 30 mg 09/28/18 18:30 09/29/18 10:34 Imdur - PO 30 mg DAILY SANGEETHA Administration Labetalol HCl 300 mg 09/28/18 22:00 09/29/18 10:33 Normodyne - PO 300 mg BID SANGEETHA Administration Nifedipine 90 mg 09/29/18 10:00 09/29/18 10:38 Procardia Xl - PO 90 mg DAILY SANGEETHA Administration Ranolazine 500 mg 09/25/18 22:00 09/29/18 10:33 Ranexa - PO 500 mg BID SANGEETHA Administration Tamsulosin HCl 0.4 mg 09/26/18 08:30 09/29/18 10:33 Flomax - PO 0.4 mg DAILY@0830 SANGEETHA Administration Echo 05/2018 mildly dilated LV, mild conc LVH, with discrete upper septal component, overal nl LV function EF 55%LA pressure uncertain, no RWMA,nl RV, mild MR, at least mild pulm HTN, mild MRRVSP at least 48 mmHg ECHO 09/28/18 Interpretation Summary The left ventricle is normal in size. Left ventricular systolic function is mild to moderately reduced. There is mild to moderate global hypokinesis of the left ventricle. Ejection Fraction = 40-45%. The right ventricular systolic function is normal. The left atrial size is normal. Right atrial size is normal. There is mild mitral regurgitation. There is mild to moderate tricuspid regurgitation. There is mild aortic sclerosis.; Trivial pericardial effusion not hemodynamically significant Large pleural effusion Previous study is not available for comparsion [id number] US/KIDNEY / RENAL US Renal insufficiency Renal ultrasound The right kidney measures 13.2 cm in sagittal length and the left kidney measured 13 cm. Both kidneys appear morphologically unremarkable. There is no gross evidence of hydronephrosis or renal stones, bilaterally. Visualized portion of the liver and spleen appear unremarkable. Note is made of bilateral pleural effusion. IMPRESSION: Both kidneys appear unremarkable without gross evidence of hydronephrosis or renal stones. Note is made of bilateral pleural effusion. ASSESSMENT/PLAN: 58 y/o M with PMH DM, HTN, HLD, CAD s/p 2 FER cardiac stents (10/2017), L4/L5 vertebral OM, PVD who presents to the ED c/o SOB over the past two weeks and found to be in volume overload suspected due to CHF #Acute Systolic CHF exacerbation - modest improvement. f/w gitig in outpt. -ECHO - EF 40-45%, mild to moderate global hypokinesis of LV, Large pleural effusion -per cardio has +stress in 09/2017 and had stent x2 placed at that time. will need to optimize his therapy at this time. any may require repeat stress once euvolemic -per cardio, c/w labetolol and uptitrate for BP ctl as needed as HTN is likely cause for cardiomyopathy causing reduced EF. c/w increased dose of 300 bid. Ideally should be on coreg for HFref but now more important to ctl HTN as likely culprit of hypokinesis seen on echo. -c/w hydral 25 TID and uptitrate as needed -c/w home dose imdur 30 and nifedipine 90 -increase lasix 40 to 60mg IVP BID. if continues to improve, may be able to switch to PO prior to dc. -strict I/o, 2g Na control, daily wts -c/w ASA/statin -cont to hold ARB and re-start once renal function improves -Cardio consult (Gitig) -trops 0.05..0.06...0.05 -PT eval #?GABI on CKD 2/2 volume overload - baseline Cr ~1 (2016), Per PCP; Cr 1.8 () and 2.16 (08/26/18) -non ogliuric -consider workup if worsening but appears patient was requiring bx as outpatient -hold ARB as with GABI -monitor Cr -c/w lasix -Renal U/S not suggestive of any acute disease or obstruction. 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 - New Patient This patient is new to me today: Yes Date on this admission: 09/29/18 - Critical Care Critical Care patient: No
[2018-09-29] MEDS: ATORVASTATIN CA 40 MG TABLET (FP) PO SCH (23:22)
[2018-09-30] MEDS: INSULIN SLIDING SCALE (NOVOLOG) 1 VIAL SQ SCH ×5 (06:23→22:02)
[2018-09-30] MEDS: hydrALAZINE HCL 25 MG TABLET (FP) PO SCH ×3 (06:37→22:02)
[2018-09-30] MEDS: FUROSEMIDE 40 MG/4 ML INJECTABLE VIAL IVPUSH SCH ×2 (06:37→13:34)
[2018-09-30] MEDS: HEPARIN NA (PORCINE) 5,000 UNITS/ML 1ML VIAL SQ SCH ×3 (06:37→22:02)
[2018-09-30 07:08] LABS: ANION GAP 7 MMOL/L (8-16); BLOOD UREA NITROGEN 56 mg/dL (7-18); CALCIUM 7.3 mg/dL (8.5-10.1); CHLORIDE 108 mmol/L (98-107); CO2 27 mmol/L (21-32); CREATININE 3.3 mg/dL (0.55-1.3); GLUCOSE,RANDOM 114 mg/dL (74-106); MAGNESIUM 1.9 mg/dL (1.8-2.4); PHOSPHOROUS 4.1 mg/dL (2.5-4.9); POTASSIUM 3.8 mmol/L (3.5-5.1); SODIUM 143 mmol/L (136-145)
[2018-09-30] MEDS: TAMSULOSIN HCL 0.4 MG CAP PO SCH (08:47)
[2018-09-30] MEDS: ASPIRIN COATED 81 MG TABLET.EC PO SCH (09:28)
[2018-09-30] MEDS: RANOLAZINE E.R. 500 MG TABLET (FP) PO SCH ×2 (09:28→22:02)
[2018-09-30] MEDS: NIFEdipine E.R. 90 MG TABLET (FP) PO SCH (09:28)
[2018-09-30] MEDS: LABETALOL HCL 100 MG TABLET (FP) PO SCH ×2 (09:28→22:02)
[2018-09-30] MEDS: CLOPIDOGREL BISULFATE 75 MG TABLET (FP) PO SCH (09:28)
[2018-09-30] MEDS: ISOSORBIDE MONONITRATE 30 MG TAB.SR.24H (FP) PO SCH (09:29)
--- NOTE | 2018-09-30 09:29 | PN ---
Progress Note (short form) - Note Progress Note: s: edema stable. no orthopnea, chest pain, palps, dizziness. sob improved Current Medications Aspirin (Ecotrin -) 81 mg PO DAILY [facility] Last Admin: 09/29/18 10:33 Dose: 81 mg Atorvastatin Calcium (Lipitor -) 40 mg PO HS [facility] Last Admin: 09/29/18 23:22 Dose: 40 mg Clopidogrel Bisulfate (Plavix -) 75 mg PO DAILY [facility] Last Admin: 09/29/18 10:34 Dose: 75 mg Furosemide (Lasix Injection -) 40 mg IVPUSH BID@0600,1400 [facility] Last Admin: 09/30/18 06:37 Dose: 40 mg Guaifenesin (Robitussin Dm -) 10 ml PO Q8H PRN PRN Reason: COUGH Last Admin: 09/29/18 10:32 Dose: 10 ml Heparin Sodium (Porcine) (Heparin -) 5,000 unit SQ TID [facility] Last Admin: 09/30/18 06:37 Dose: 5,000 unit Hydralazine HCl (Apresoline -) 25 mg PO TID [facility] Last Admin: 09/30/18 06:37 Dose: 25 mg Insulin Aspart (Novolog Vial Sliding Scale -) 1 vial SQ [facility]; Protocol Last Admin: 09/30/18 06:23 Dose: Not Given Isosorbide Mononitrate (Imdur -) 30 mg PO DAILY [facility] Last Admin: 09/29/18 10:34 Dose: 30 mg Labetalol HCl (Normodyne -) 300 mg PO BID [facility] Last Admin: 09/29/18 23:22 Dose: 300 mg Nifedipine (Procardia Xl -) 90 mg PO DAILY [facility] Last Admin: 09/29/18 10:38 Dose: 90 mg Ranolazine (Ranexa -) 500 mg PO BID [facility] Last Admin: 09/29/18 23:22 Dose: 500 mg Tamsulosin HCl (Flomax -) 0.4 mg PO DAILY@0830 [facility] Last Admin: 09/30/18 08:47 Dose: 0.4 mg Vital Signs: Vital Signs Period Temp Pulse Resp BP Sys/Lopez Pulse Ox Last 24 Hr 97.3 F-98.7 F 70-74 20-20 119-152/66-81 99 Constitutional: Yes: Well Nourished, No Distress, Calm Eyes: Yes: Conjunctiva Clear, EOM Intact HENT: Yes: Atraumatic, Normocephalic Neck: Yes: Supple, Trachea Midline Respiratory: Yes: Regular, CTA Bilaterally Gastrointestinal: Yes: Normal Bowel Sounds, Soft Cardiovascular: Yes: Regular Rate and Rhythm JVD: No Carotid Bruit: No PMI: Non-Displaced Heart Sounds: Yes: S1, S2 Musculoskeletal: No: Back Pain Extremities: No: Cold Edema: Yes Edema: LLE: 2+, RLE: 2+ Peripheral Pulses WNL: Yes Peripheral Pulses: 2+ Left Doralis Pedis, 2+ Right Dorsalis Pedis Integumentary: No: Jaundice Neurological: Yes: Alert, Oriented Psychiatric: No: Agitated Assessment/Plan [facility] 10/2017 planned staged PCI of mid LAD [facility] 09/2017 (for inf ischemia on MPI) mild RCA, 80-90% LCx s/p FER, 70-80% mLAD. EDP 25->15 post nitro, EF 50% Echo 05/2018 mildly dilated LV, mild conc LVH, with discrete upper septal component, overal nl LV function EF 55%LA pressure uncertain, no RWMA,nl RV, mild MR, at least mild pulm HTN, mild MRRVSP at least 48 mmHg echo 09/2018 nl LV size, mild to mod reduced LV function EF 40-45%, RV nl, nl biatrial size, mild MR, mild to mod TR, mild ao sclerosis, trivial pericardial effusion, lg pleural effusion tele: sinus Acute systolic HF exacerbation - receiving lasix 40 mg IV BID, wt 282->278 lbs, Cr 2.4 on admission, now 2.8 - lg pleural effusion on echo - EF 40-45% on echo here, reportedly reduced function compared to prior in office - holding ARB for GABI - on labetolol at increased dose today - continue lasix 40 mg IV BID, respiratory status improving however remains volume up - 09/30: wt stable, Cr rising, remains volume up. increase lasix to 80 mg BID GABI on CKD - per outpatient notes reportedly Cr 1.8 in 04/2018, had been planning for outpatient kidney biopsy -Cr 2.8->3.3 monitoring with diuresis - renal u/s no obstruction - nephrology consulted CAD - s/p FER most recently 09/2017, 10/2017 - on aspirin and plavix HTN - on labetolol 200 mg BID as outpatient, increased to 300 mg BID here - on nifedipine, nitrates - hydralazine increased here for improved BP control, uptitrate as tolerated for improved BP control pulm HTN - mild on echo, likely due to diastolic dysfunction cerebral atherosclerosis - LICA plaque noted 2016 - on aspirin, plavix, statin PAD - hx L SFA stent, [employer]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
--- NOTE | 2018-09-30 11:58 | CONSULT ---
Consult - text type - Consultation Consultation Note: Renal Consult for GABI on CKD This is a 58 year old gentleman with hx of CAD s/p PCI and stenting, hypertension, DM, Hyperlipidemia, CKD (baseline Cr ~2) who presented with SOB and admitted for CHF exacerbation with GABI. Pt knows that he has CKD, was told at [facility] but does not follow up with a Car Refinisher. Denies any flank pain , dysuria, symptoms of retention. No rash on skin or itching noted. No JONES/CP. SOB is improved. Legs remain swollen. No muscle pain. No cough, orthopnea. PND. PMHx: as above Allergies: NKDA Family Hx: NC Social Hx: No T/A/D ROS: as per HPI Home Medications Medication Instructions Recorded Glipizide [Glucotrol] 5 mg PO BID 04/08/17 Aspirin [Aspirin EC] 81 mg PO DAILY 09/25/18 Atorvastatin Ca [Lipitor] 40 mg PO HS 09/25/18 Clopidogrel Bisulfate [Plavix] 75 mg PO DAILY 09/25/18 Ergocalciferol (Vitamin D2) 50,000 unit PO WEEKLY 09/25/18 [Vitamin D2] Isosorbide Mononitrate [Isosorbide 30 mg PO DAILY 09/25/18 Mononitrate ER] Labetalol HCl [Normodyne -] 200 mg PO BID 09/25/18 Losartan Potassium 50 mg DAILY 09/25/18 Metolazone [Zaroxolyn -] 5 mg PO DAILY 09/25/18 Ranolazine [Ranexa] 500 mg PO BID 09/25/18 Tamsulosin HCl [Flomax] 0.4 mg PO DAILY 09/25/18 Nifedipine ER [Procardia XL -] 90 mg PO DAILY 09/29/18 Vital Signs Temperature 98.3 F 09/30/18 10:00 Pulse Rate 71 09/30/18 10:00 Respiratory Rate 20 09/30/18 10:00 Blood Pressure 138/76 09/30/18 10:00 O2 Sat by Pulse Oximetry (%) 95 09/30/18 09:00 Intake & Output 09/27/18 09/28/18 09/29/18 09/30/18 23:59 23:59 23:59 23:59 Intake Total 1225 300 300 Output Total 3050 800 Balance -1825 -500 300 Weight 126.915 kg 126.824 kg 126.371 kg 126.28 kg NAD on room air Neck supple no JVD RRR, no M/R CTA, no rales or wheeze soft NT/ND no bladder distension ++ edema in LE no cyanosis or clubbing no focal neurologic defects CBC, BMP 09/27/18 08:15 09/30/18 05:30 Current Medications Aspirin (Ecotrin -) 81 mg PO DAILY [facility] Last Admin: 09/30/18 09:28 Dose: 81 mg Atorvastatin Calcium (Lipitor -) 40 mg PO HS [facility] Last Admin: 09/29/18 23:22 Dose: 40 mg Clopidogrel Bisulfate (Plavix -) 75 mg PO DAILY [facility] Last Admin: 09/30/18 09:28 Dose: 75 mg Furosemide (Lasix Injection -) 80 mg IVPUSH BID@0600,1400 [facility] Guaifenesin (Robitussin Dm -) 10 ml PO Q8H PRN PRN Reason: COUGH Last Admin: 09/29/18 10:32 Dose: 10 ml Heparin Sodium (Porcine) (Heparin -) 5,000 unit SQ TID [facility] Last Admin: 09/30/18 06:37 Dose: 5,000 unit Hydralazine HCl (Apresoline -) 25 mg PO TID [facility] Last Admin: 09/30/18 06:37 Dose: 25 mg Insulin Aspart (Novolog Vial Sliding Scale -) 1 vial SQ ACHS [facility]; Protocol Last Admin: 09/30/18 11:14 Dose: Not Given Isosorbide Mononitrate (Imdur -) 30 mg PO DAILY [facility] Last Admin: 09/30/18 09:29 Dose: 30 mg Labetalol HCl (Normodyne -) 300 mg PO BID [facility] Last Admin: 09/30/18 09:28 Dose: 300 mg Nifedipine (Procardia Xl -) 90 mg PO DAILY [facility] Last Admin: 09/30/18 09:28 Dose: 90 mg Ranolazine (Ranexa -) 500 mg PO BID [facility] Last Admin: 09/30/18 09:28 Dose: 500 mg Tamsulosin HCl (Flomax -) 0.4 mg PO DAILY@0830 [facility] Last Admin: 09/30/18 08:47 Dose: 0.4 mg 58 year old gentleman with hx of CAD s/p PCI and stenting, hypertension, DM, Hyperlipidemia, CKD (baseline Cr ~2) who presented with SOB and admitted for CHF exacerbation with GABI. #GABI from Cardio-renal syndrome vs. renal hypoprofusion in setting of IV diuresis vs. AIN (lasix) vs. GN vs. 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
--- NOTE | 2018-09-30 13:17 | PN ---
Teaching Attending Note Name of Resident: Navdeep Villalpando ATTENDING PHYSICIAN STATEMENT I saw and evaluated the patient. I reviewed the resident's note and discussed the case with the resident. I agree with the resident's findings and plan as documented. SUBJECTIVE: SOB/cough improving. No fever/chills/sputum. OBJECTIVE: Afebrile, Hemodynamically Stable, mildly flat affect, comfortable lying flat. Last Vital Signs Temp Pulse Resp BP Pulse Ox 98.3 F 71 20 138/76 95 09/30/18 10:00 09/30/18 10:00 09/30/18 10:00 09/30/18 10:00 09/30/18 09:00 HEENT - Atraumatic, Normocephalic Heart - S1, S2, SM Lungs - decreased air entry at bases L > R Abdomen - soft, non-tender. Bowel Sounds normal. Extremities - LE edema ++ Psych - no depression/anxiety. No suicidal/homicidal ideation Laboratory Results - last 24 hr 09/29/18 09/30/18 09/30/18 23:20 05:30 06:15 Sodium 143 Potassium 3.8 Chloride 108 H Carbon Dioxide 27 Anion Gap 7 L BUN 56 H Creatinine 3.3 H Creat Clearance w eGFR 19.42 POC Glucometer 167 111 Random Glucose 114 H Calcium 7.3 L Phosphorus 4.1 Magnesium 1.9 09/30/18 11:12 Sodium Potassium Chloride Carbon Dioxide Anion Gap BUN Creatinine Creat Clearance w eGFR POC Glucometer 140 Random Glucose Calcium Phosphorus Magnesium Current Medications Generic Name Dose Route Start Last Admin Trade Name Freq PRN Reason Stop Dose Admin Aspirin 81 mg 09/26/18 10:00 09/30/18 09:28 Ecotrin - PO 81 mg DAILY SANGEETHA Administration Atorvastatin Calcium 40 mg 09/25/18 22:00 09/29/18 23:22 Lipitor - PO 40 mg HS SANGEETHA Administration Clopidogrel Bisulfate 75 mg 09/26/18 10:00 09/30/18 09:28 Plavix - PO 75 mg DAILY SANGEETHA Administration Furosemide 80 mg 09/30/18 11:10 Lasix Injection - IVPUSH BID@0600,1400 SANGEETHA Guaifenesin 10 ml 09/27/18 22:20 09/29/18 10:32 Robitussin Dm - PO 10 ml Q8H PRN Administration COUGH Heparin Sodium (Porcine) 5,000 unit 09/25/18 22:00 09/30/18 06:37 Heparin - SQ 5,000 unit TID SANGEETHA Administration Hydralazine HCl 25 mg 09/28/18 11:47 09/30/18 06:37 Apresoline - PO 25 mg TID SANGEETHA Administration Insulin Aspart 1 vial 09/25/18 22:00 09/30/18 11:14 Novolog Vial Sliding Scale - SQ Not Given ACHS [facility] Protocol Isosorbide Mononitrate 30 mg 09/28/18 18:30 09/30/18 09:29 Imdur - PO 30 mg DAILY SANGEETHA Administration Labetalol HCl 300 mg 09/28/18 22:00 09/30/18 09:28 Normodyne - PO 300 mg BID SANGEETHA Administration Nifedipine 90 mg 09/29/18 10:00 09/30/18 09:28 Procardia Xl - PO 90 mg DAILY SANGEETHA Administration Ranolazine 500 mg 09/25/18 22:00 09/30/18 09:28 Ranexa - PO 500 mg BID [facility] Administration Tamsulosin HCl 0.4 mg 09/26/18 08:30 09/30/18 08:47 Flomax - PO 0.4 mg DAILY@0830 SANGEETHA Administration Home Medications Medication Instructions Recorded Glipizide [Glucotrol] 5 mg PO BID 04/08/17 Aspirin [Aspirin EC] 81 mg PO DAILY 09/25/18 Atorvastatin Ca [Lipitor] 40 mg PO HS 09/25/18 Clopidogrel Bisulfate [Plavix] 75 mg PO DAILY 09/25/18 Ergocalciferol (Vitamin D2) 50,000 unit PO WEEKLY 09/25/18 [Vitamin D2] Isosorbide Mononitrate [Isosorbide 30 mg PO DAILY 09/25/18 Mononitrate ER] Labetalol HCl [Normodyne -] 200 mg PO BID 09/25/18 Losartan Potassium 50 mg DAILY 09/25/18 Metolazone [Zaroxolyn -] 5 mg PO DAILY 09/25/18 Ranolazine [Ranexa] 500 mg PO BID 09/25/18 Tamsulosin HCl [Flomax] 0.4 mg PO DAILY 09/25/18 Nifedipine ER [Procardia XL -] 90 mg PO DAILY 09/29/18 ASSESSMENT/PLAN 58 year old Male with DM 2, HTN, HLD, BPH, CAD s/p PCI/Stent x 2, Hx of L4/5 vertebral OM, PVD, presented with increasing SOB/cough, found to have fluid overload. 1. Acute on Chronic Systolic CHF sec to CAD s/p PCI/Stent x 2 09/21 Echo - global hypokinesis, EF 45% Responding to IV Lasix. Daily weight/I and Os. Continue Ranexa, Aspirin, Plavix, BB, Statin 2. GABI on CKD 3 Renal US - no obstruction. Renal function worsening on IV Lasix Continue Lasix as per Nephrology 3. Hypertensive Urgency - BP better controlled, continue Nifedipine, Labetolol, Imdur 4. DM 2 - Continue Novolog sliding scale. 5. BPH - Continue Flomax DVT Px - Heparin SQ
--- NOTE | 2018-09-30 14:42 | PN ---
Physical Exam: SUBJECTIVE: Patient seen and examined at bedside. States that he feels better, as his lower extremities are less swollen. can lay more flat when sleeping. No further complaint. denies fever, chills, cp, sob, n/v/d. OBJECTIVE: Vital Signs Period Temp Pulse Resp BP Sys/Lopez Pulse Ox Last 24 Hr 97.3 F-98.3 F 70-74 20-20 119-138/66-78 95-99 GENERAL: The patient is pleasant. AOX3 NAD HEAD: NCAT EYES: PERRL, extraocular movements intact, sclera anicteric, conjunctiva clear. ENT: Ears normal, nares patent, oropharynx clear without exudates, MMM NECK: Trachea midline, supple. LUNGS: crackles at bases, improving HEART: RRR, S1, S2 without murmur, rub or gallop. ABDOMEN: Soft, obese, NTND, normoactive bowel sounds, no guarding, no rebound EXTREMITIES: 2+ pt pulses, warm, well-perfused. 2+ pitting edema, improving NEUROLOGICAL: Cranial nerves II through XII grossly intact. sensation intact. able to lift lower extremities today. PSYCH: Normal mood, normal affect. SKIN: Warm, dry, normal turgor Laboratory Results - last 24 hr 09/29/18 09/30/18 09/30/18 23:20 05:30 06:15 Sodium 143 Potassium 3.8 Chloride 108 H Carbon Dioxide 27 Anion Gap 7 L BUN 56 H Creatinine 3.3 H Creat Clearance w eGFR 19.42 POC Glucometer 167 111 Random Glucose 114 H Calcium 7.3 L Phosphorus 4.1 Magnesium 1.9 Creatine Kinase 548 H Creatine Kinase Index 0.6 CK-MB (CK-2) 3.8 H 09/30/18 11:12 Sodium Potassium Chloride Carbon Dioxide Anion Gap BUN Creatinine Creat Clearance w eGFR POC Glucometer 140 Random Glucose Calcium Phosphorus Magnesium Creatine Kinase Creatine Kinase Index CK-MB (CK-2) Active Medications Generic Name Dose Route Start Last Admin Trade Name Freq PRN Reason Stop Dose Admin Aspirin 81 mg 09/26/18 10:00 09/30/18 09:28 Ecotrin - PO 81 mg DAILY SANGEET[facility] Administration Atorvastatin Calcium 40 mg 09/25/18 22:00 09/29/18 23:22 Lipitor - PO 40 mg HS SANGEETHA Administration Clopidogrel Bisulfate 75 mg 09/26/18 10:00 09/30/18 09:28 Plavix - PO 75 mg DAILY [facility] Administration Furosemide 80 mg 09/30/18 11:10 09/30/18 13:34 Lasix Injection - IVPUSH 80 mg BID@0600,1400 S[facility] Administration Guaifenesin 10 ml 09/27/18 22:20 09/29/18 10:32 Robitussin Dm - PO 10 ml Q8H PRN Administration COUGH Heparin Sodium (Porcine) 5,000 unit 09/25/18 22:00 09/30/18 13:34 Heparin - SQ 5,000 unit TID SANGEETHA Administration Hydralazine HCl 25 mg 09/28/18 11:47 09/30/18 13:35 Apresoline - PO 25 mg TID SANGEET[facility] Administration Insulin Aspart 1 vial 09/25/18 22:00 09/30/18 11:14 Novolog Vial Sliding Scale - SQ Not Given ACHS [facility] Protocol Isosorbide Mononitrate 30 mg 09/28/18 18:30 09/30/18 09:29 Imdur - PO 30 mg DAILY SANGEET[facility] Administration Labetalol HCl 300 mg 09/28/18 22:00 09/30/18 09:28 Normodyne - PO 300 mg BID SANGEETHA Administration Nifedipine 90 mg 09/29/18 10:00 09/30/18 09:28 Procardia Xl - PO 90 mg DAILY SANGEET[facility] Administration Ranolazine 500 mg 09/25/18 22:00 09/30/18 09:28 Ranexa - PO 500 mg BID S[facility] Administration Tamsulosin HCl 0.4 mg 09/26/18 08:30 09/30/18 08:47 Flomax - PO 0.4 mg DAILY@0830 SANGEET[facility] Administration [facility] 10/2017 planned staged PCI of mid LAD [facility] 09/2017 (for inf ischemia on MPI) mild RCA, 80-90% LCx s/p FER, 70-80% mLAD. EDP 25->15 post nitro, EF 50% Echo 05/2018 mildly dilated LV, mild conc LVH, with discrete upper septal component, overal nl LV function EF 55%LA pressure uncertain, no RWMA,nl RV, mild MR, at least mild pulm HTN, mild MRRVSP at least 48 mmHg ECHO 09/28/18 Interpretation Summary The left ventricle is normal in size. Left ventricular systolic function is mild to moderately reduced. There is mild to moderate global hypokinesis of the left ventricle. Ejection Fraction = 40-45%. The right ventricular systolic function is normal. The left atrial size is normal. Right atrial size is normal. There is mild mitral regurgitation. There is mild to moderate tricuspid regurgitation. There is mild aortic sclerosis.; Trivial pericardial effusion not hemodynamically significant Large pleural effusion Previous study is not available for comparsion [id number] US/KIDNEY / RENAL US Renal insufficiency Renal ultrasound The right kidney measures 13.2 cm in sagittal length and the left kidney measured 13 cm. Both kidneys appear morphologically unremarkable. There is no gross evidence of hydronephrosis or renal stones, bilaterally. Visualized portion of the liver and spleen appear unremarkable. Note is made of bilateral pleural effusion. IMPRESSION: Both kidneys appear unremarkable without gross evidence of hydronephrosis or renal stones. Note is made of bilateral pleural effusion. ASSESSMENT/PLAN: 58 y/o M with PMH DM, HTN, HLD, CAD s/p 2 FER cardiac stents (10/2017), L4/L5 vertebral OM, PVD who presents to the ED c/o SOB over the past two weeks and found to be in volume overload suspected due to CHF #Acute on Chronic Systolic CHF exacerbation - modest improvement but today wt stable, Cr rising, overall remains volume up. f/w gitig in outpt. -ECHO - EF 40-45%, mild to moderate global hypokinesis of LV, Large pleural effusion -per cardio has +stress in 09/2017 and had stent x2 placed at that time. will need to optimize his therapy at this time. any may require repeat stress once euvolemic -per cardio, c/w labetolol and uptitrate for BP ctl as needed as HTN is likely cause for cardiomyopathy causing reduced EF. c/w increased dose of 300 bid. Ideally should be on coreg for HFref but now more important to ctl HTN as likely culprit of hypokinesis seen on echo. -c/w hydral 25 TID and uptitrate as needed -c/w home dose imdur 30 and nifedipine 90 -09/30: wt stable, Cr rising, remains volume up. increase lasix to 80 mg BID -strict I/o, 2g Na control, daily wts -c/w ASA/statin -cont to hold ARB and re-start once renal function improves -Cardio consult (Gitig) -trops 0.05..0.06...0.05 -PT eval #GABI on CKD III #GABI 2/2 Cardio-renal syndrome vs. renal hypoprofusion in setting of IV diuresis vs. AIN (lasix) vs. GN vs. Rhabdo (elevated CK on admission) #CKD III likely 2/2 DM nephropathy - appears patient was requiring bx as outpatient -nephro consult (Richie) -baseline Cr ~1 (2016), Per PCP; Cr 1.8 (04/28/18) and 2.16 (08/26/18). -Cr increasing 2.8....3.3 today -f/u urine studies for FeNa, FeUrea, UPCR and urine eosinophils -Renal U/S not suggestive of any acute disease or obstruction. 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 -hold ARB as with GABI -c/w lasix 80 bid, per Nephro and cardio recs -if BUN/Cr continues to worsen consider decreasing diuretics #CAD s/p FER most recently 09/2017, 10/2017 -c/w asa, ranexa, plavix, statin #HTN urgency- resolved -c/w increased labetolol dose of 300 bid and uptitrate as needed -c/w hydral 25 TID and uptitrate as needed -c/w home dose imdur 30 and nifedipine 90 -hold ARB as w GABI #cerebral atherosclerosis - LICA plaque noted 2016 #PAD - hx L SFA stent, BALLER TENDER of left 2016 #hx of L4L5 vertebral OM #HLD -c/w lipitor #DM -A1c 4.5 -ISS, BGM ACHS, hold oral agents #F/E/N no IVF at this time continue to follow lytes na controlled/diabetic/ heart healthy diet #PPX DVT: Hep 5k SQ TID #Dispo tele monitoring Visit type - Emergency Visit Emergency Visit: Yes ED Registration Date: 09/25/18 Care time: The patient presented to the Emergency Department on the above date and was hospitalized for further evaluation of their emergent condition. - New Patient This patient is new to me today: Yes Date on this admission: 09/30/18 - Critical Care Critical Care patient: No
[2018-09-30 16:49] LABS: EPI CELLS 4.7 /HPF (0-5); URINE APPEARANCE CLOUDY; URINE BACTERIA 1.5 /hpf (NEGATIVE); URINE BILIRUBIN NEGATIVE (NEGATIVE); URINE CASTS 59 /hpf (0-8); URINE COLOR YELLOW; URINE GLUCOSE (UA) 1+ (NEGATIVE); URINE KETONE NEGATIVE (NEGATIVE); URINE LEUK ESTERASE NEGATIVE (NEGATIVE); URINE NITRITE NEGATIVE (NEGATIVE); URINE PROTEIN 3+ (NEGATIVE); URINE UROBILINOGEN 0.2 mg/dL (0.2-1.0); URINE WBC 4 /hpf (0-5)
[2018-09-30 17:15] LABS: URINE RBC 5.6 /hpf (0-4)
[2018-09-30] MEDS: ATORVASTATIN CA 40 MG TABLET (FP) PO SCH (22:02)
--- NOTE | 2018-10-01 06:41 | PN ---
Physical Exam: SUBJECTIVE: Patient seen and examined at bedside. States that he feels better, as his lower extremities are less swollen. can lay more flat when sleeping. No further complaint. denies fever, chills, cp, sob, n/v/d. Cr 3.3.....3.5 today OBJECTIVE: Vital Signs Period Temp Pulse Resp BP Sys/Lopez Pulse Ox Last 24 Hr 97.5 F-98.3 F 70-76 20-20 132-143/72-81 95-96 GENERAL: The patient is pleasant. AOX3 NAD HEAD: NCAT EYES: PERRL, extraocular movements intact, sclera anicteric, conjunctiva clear. ENT: Ears normal, nares patent, oropharynx clear without exudates, MMM NECK: Trachea midline, supple. LUNGS: crackles at bases, improving HEART: RRR, S1, S2 without murmur, rub or gallop. ABDOMEN: Soft, obese, NTND, normoactive bowel sounds, no guarding, no rebound EXTREMITIES: 2+ pt pulses, warm, well-perfused. 2+ pitting edema, improving NEUROLOGICAL: Cranial nerves II through XII grossly intact. sensation intact. able to lift lower extremities today. PSYCH: Normal mood, normal affect. SKIN: Warm, dry, normal turgor Laboratory Results - last 24 hr 09/30/18 09/30/18 09/30/18 05:30 11:12 15:02 Sodium 143 Potassium 3.8 Chloride 108 H Carbon Dioxide 27 Anion Gap 7 L BUN 56 H Creatinine 3.3 H Creat Clearance w eGFR 19.42 POC Glucometer 140 Random Glucose 114 H Calcium 7.3 L Phosphorus 4.1 Magnesium 1.9 Creatine Kinase 548 H Creatine Kinase Index 0.6 CK-MB (CK-2) 3.8 H Urine Color Yellow Urine Appearance Cloudy Urine pH 5.0 Ur Specific [place] 1.017 Urine Protein 3+ H Urine Glucose (UA) 1+ H Urine Ketones Negative Urine Blood Negative Urine Nitrite Negative Urine Bilirubin Negative Urine Urobilinogen 0.2 Ur Leukocyte Esterase Negative Urine WBC (Auto) 4 Urine RBC (Auto) 5.6 Urine Casts (Auto) 59 U Pathogenic Cast Auto Coarse granular U Epithel Cells (Auto) 4.7 Urine Crystals (Auto) Data Entry Associate Urine Bacteria (Auto) 1.5 U Random Total Protein Ur Random Urea Nitrogn Urine Creatinine 09/30/18 09/30/18 09/30/18 15:02 15:02 15:02 Sodium Potassium Chloride Carbon Dioxide Anion Gap BUN Creatinine Creat Clearance w eGFR POC Glucometer Random Glucose Calcium Phosphorus Magnesium Creatine Kinase Creatine Kinase Index CK-MB (CK-2) Urine Color Urine Appearance Urine pH Ur Specific [place] Urine Protein Urine Glucose (UA) Urine Ketones Urine Blood Urine Nitrite Urine Bilirubin Urine Urobilinogen Ur Leukocyte Esterase Urine WBC (Auto) Urine RBC (Auto) Urine Casts (Auto) U Pathogenic Cast Auto U Epithel Cells (Auto) Urine Crystals (Auto) Urine Bacteria (Auto) U Random Total Protein 473.2 H Ur Random Urea Nitrogn 424 Urine Creatinine 128.0 09/30/18 09/30/18 16:41 21:58 Sodium Potassium Chloride Carbon Dioxide Anion Gap BUN Creatinine Creat Clearance w eGFR POC Glucometer 189 249 Random Glucose Calcium Phosphorus Magnesium Creatine Kinase Creatine Kinase Index CK-MB (CK-2) Urine Color Urine Appearance Urine pH Ur Specific [place] Urine Protein Urine Glucose (UA) Urine Ketones Urine Blood Urine Nitrite Urine Bilirubin Urine Urobilinogen Ur Leukocyte Esterase Urine WBC (Auto) Urine RBC (Auto) Urine Casts (Auto) U Pathogenic Cast Auto U Epithel Cells (Auto) Urine Crystals (Auto) Urine Bacteria (Auto) U Random Total Protein Ur Random Urea Nitrogn Urine Creatinine Active Medications Generic Name Dose Route Start Last Admin Trade Name Freq PRN Reason Stop Dose Admin Aspirin 81 mg 09/26/18 10:00 09/30/18 09:28 Ecotrin - PO 81 mg DAILY SANGEETHA Administration Atorvastatin Calcium 40 mg 09/25/18 22:00 09/30/18 22:02 Lipitor - PO 40 mg HS SANGEETHA Administration Clopidogrel Bisulfate 75 mg 09/26/18 10:00 09/30/18 09:28 Plavix - PO 75 mg DAILY SANGEETHA Administration Furosemide 80 mg 09/30/18 11:10 09/30/18 13:34 Lasix Injection - IVPUSH 80 mg BID@0600,1400 SANGEETHA Administration Guaifenesin 10 ml 09/27/18 22:20 09/29/18 10:32 Robitussin Dm - PO 10 ml Q8H PRN Administration COUGH Heparin Sodium (Porcine) 5,000 unit 09/25/18 22:00 09/30/18 22:02 Heparin - SQ 5,000 unit TID SANGEETHA Administration Hydralazine HCl 25 mg 09/28/18 11:47 09/30/18 22:02 Apresoline - PO 25 mg TID SANGEETHA Administration Insulin Aspart 1 vial 09/25/18 22:00 09/30/18 22:02 Novolog Vial Sliding Scale - SQ 4 unit ACHS SANGEETHA Administration Protocol Isosorbide Mononitrate 30 mg 09/28/18 18:30 09/30/18 09:29 Imdur - PO 30 mg DAILY SANGEETHA Administration Labetalol HCl 300 mg 09/28/18 22:00 09/30/18 22:02 Normodyne - PO 300 mg BID SANGEETHA Administration Nifedipine 90 mg 09/29/18 10:00 09/30/18 09:28 Procardia Xl - PO 90 mg DAILY SANGEETHA Administration Ranolazine 500 mg 09/25/18 22:00 09/30/18 22:02 Ranexa - PO 500 mg BID SANGEETHA Administration Tamsulosin HCl 0.4 mg 09/26/18 08:30 09/30/18 08:47 Flomax - PO 0.4 mg DAILY@0830 SANGEETHA Administration [facility] 10/2017 planned staged PCI of mid LAD [facility] 09/2017 (for inf ischemia on MPI) mild RCA, 80-90% LCx s/p FER, 70-80% mLAD. EDP 25->15 post nitro, EF 50% Echo 05/2018 mildly dilated LV, mild conc LVH, with discrete upper septal component, overal nl LV function EF 55%LA pressure uncertain, no RWMA,nl RV, mild MR, at least mild pulm HTN, mild MRRVSP at least 48 mmHg ECHO 09/28/18 Interpretation Summary The left ventricle is normal in size. Left ventricular systolic function is mild to moderately reduced. There is mild to moderate global hypokinesis of the left ventricle. Ejection Fraction = 40-45%. The right ventricular systolic function is normal. The left atrial size is normal. Right atrial size is normal. There is mild mitral regurgitation. There is mild to moderate tricuspid regurgitation. There is mild aortic sclerosis.; Trivial pericardial effusion not hemodynamically significant Large pleural effusion Previous study is not available for comparsion [id number] US/KIDNEY / RENAL US Renal insufficiency Renal ultrasound The right kidney measures 13.2 cm in sagittal length and the left kidney measured 13 cm. Both kidneys appear morphologically unremarkable. There is no gross evidence of hydronephrosis or renal stones, bilaterally. Visualized portion of the liver and spleen appear unremarkable. Note is made of bilateral pleural effusion. IMPRESSION: Both kidneys appear unremarkable without gross evidence of hydronephrosis or renal stones. Note is made of bilateral pleural effusion. ASSESSMENT/PLAN: 58 y/o M with PMH DM, HTN, HLD, CAD s/p 2 FER cardiac stents (10/2017), L4/L5 vertebral OM, PVD who presents to the ED c/o SOB over the past two weeks and found to be in volume overload suspected due to CHF #Acute on Chronic Systolic CHF exacerbation - modest improvement but today wt stable, Cr cont rising, overall remains volume up. f/w gitig in outpt. -ECHO - EF 40-45%, mild to moderate global hypokinesis of LV, Large pleural effusion -per cardio has +stress in 09/2017 and had stent x2 placed at that time. will need to optimize his therapy at this time. any may require repeat stress once euvolemic -per cardio, c/w labetolol and uptitrate for BP ctl as needed as HTN is likely cause for cardiomyopathy causing reduced EF. c/w increased dose of 300 bid. Ideally should be on coreg for HFref but now more important to ctl HTN as likely culprit of hypokinesis seen on echo. -c/w hydral 25 TID and uptitrate as needed -c/w home dose imdur 30 and nifedipine 90 -10/01: wt stable, Cr continues to rise. will hold lasix for now. hold lasix to 80 mg BID -strict I/o, 2g Na control, daily wts -c/w ASA/statin -cont to hold ARB and re-start once renal function improves -Cardio consult (Gitig) -trops 0.05..0.06...0.05 -PT eval #GABI on CKD III #GABI likely 2/2 Cardio-renal syndrome vs. renal hypoprofusion in setting of IV diuresis - FeUrea 19.5% c/w pre-renal. however AIN (lasix) vs. GN vs. 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 -Cr increasing 2.8....3.3...3.5 today -f/u urine eosinophils -Renal U/S not suggestive of any acute disease or obstruction. 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 - New Patient This patient is new to me today: Yes Date on this admission: 10/01/18 - Critical Care Critical Care patient: No
[2018-10-01] MEDS: INSULIN SLIDING SCALE (NOVOLOG) 1 VIAL SQ SCH ×4 (06:57→21:43)
[2018-10-01] MEDS: FUROSEMIDE 40 MG/4 ML INJECTABLE VIAL IVPUSH SCH (06:58)
[2018-10-01] MEDS: hydrALAZINE HCL 25 MG TABLET (FP) PO SCH ×3 (06:59→21:43)
[2018-10-01] MEDS: HEPARIN NA (PORCINE) 5,000 UNITS/ML 1ML VIAL SQ SCH ×3 (06:59→21:43)
[2018-10-01 07:21] LABS: ANION GAP 7 MMOL/L (8-16); BLOOD UREA NITROGEN 60 mg/dL (7-18); CALCIUM 7.8 mg/dL (8.5-10.1); CHLORIDE 108 mmol/L (98-107); CO2 29 mmol/L (21-32); CREATININE 3.5 mg/dL (0.55-1.3); GLUCOSE,RANDOM 93 mg/dL (74-106); MAGNESIUM 1.9 mg/dL (1.8-2.4); PHOSPHOROUS 4.4 mg/dL (2.5-4.9); POTASSIUM 3.8 mmol/L (3.5-5.1); SODIUM 144 mmol/L (136-145)
[2018-10-01] MEDS: TAMSULOSIN HCL 0.4 MG CAP PO SCH (09:30)
[2018-10-01] MEDS: LABETALOL HCL 100 MG TABLET (FP) PO SCH ×2 (09:40→21:43)
[2018-10-01] MEDS: CLOPIDOGREL BISULFATE 75 MG TABLET (FP) PO SCH (09:41)
[2018-10-01] MEDS: ASPIRIN COATED 81 MG TABLET.EC PO SCH (09:41)
[2018-10-01] MEDS: RANOLAZINE E.R. 500 MG TABLET (FP) PO SCH ×2 (09:41→21:43)
[2018-10-01] MEDS: ISOSORBIDE MONONITRATE 30 MG TAB.SR.24H (FP) PO SCH (09:41)
[2018-10-01] MEDS: NIFEdipine E.R. 90 MG TABLET (FP) PO SCH (09:41)
--- NOTE | 2018-10-01 11:18 | PN ---
Progress Note (short form) - Note Progress Note: s: edema stable. no orthopnea, chest pain, palps, dizziness. sob improved Current Medications Generic Name Dose Route Start Last Admin Trade Name Elizabeth PRN Reason Stop Dose Admin Aspirin 81 mg 09/26/18 10:00 10/01/18 09:41 Ecotrin - PO 81 mg DAILY SANGEETHA Administration Atorvastatin Calcium 40 mg 09/25/18 22:00 09/30/18 22:02 Lipitor - PO 40 mg HS SANGEETHA Administration Clopidogrel Bisulfate 75 mg 09/26/18 10:00 10/01/18 09:41 Plavix - PO 75 mg DAILY SANGEETHA Administration Furosemide 80 mg 09/30/18 11:10 10/01/18 06:58 Lasix Injection - IVPUSH 80 mg BID@0600,1400 [facility] Administration Guaifenesin 10 ml 09/27/18 22:20 09/29/18 10:32 Robitussin Dm - PO 10 ml Q8H PRN Administration COUGH Heparin Sodium (Porcine) 5,000 unit 09/25/18 22:00 10/01/18 06:59 Heparin - SQ 5,000 unit TID [facility] Administration Hydralazine HCl 25 mg 09/28/18 11:47 10/01/18 06:59 Apresoline - PO 25 mg TID [facility] Administration Insulin Aspart 1 vial 09/25/18 22:00 10/01/18 06:57 Novolog Vial Sliding Scale - SQ Not Given ACHS [facility] Protocol Isosorbide Mononitrate 30 mg 09/28/18 18:30 10/01/18 09:41 Imdur - PO 30 mg DAILY SANGEETHA Administration Labetalol HCl 300 mg 09/28/18 22:00 10/01/18 09:40 Normodyne - PO 300 mg BID SANGEETHA Administration Nifedipine 90 mg 09/29/18 10:00 10/01/18 09:41 Procardia Xl - PO 90 mg DAILY SANGEETHA Administration Ranolazine 500 mg 09/25/18 22:00 10/01/18 09:41 Ranexa - PO 500 mg BID SANGEETHA Administration Tamsulosin HCl 0.4 mg 09/26/18 08:30 10/01/18 09:30 Flomax - PO 0.4 mg DAILY@0830 SANGEETHA Administration Vital Signs: Vital Signs Period Temp Pulse Resp BP Sys/Lopez Pulse Ox Last 24 Hr 97.5 F-98.5 F 70-76 20-20 132-143/70-81 96 Constitutional: Yes: Well Nourished, No Distress, Calm Eyes: Yes: Conjunctiva Clear, EOM Intact HENT: Yes: Atraumatic, Normocephalic Neck: Yes: Supple, Trachea Midline Respiratory: Yes: Regular, CTA Bilaterally Gastrointestinal: Yes: Normal Bowel Sounds, Soft Cardiovascular: Yes: Regular Rate and Rhythm JVD: No Carotid Bruit: No PMI: Non-Displaced Heart Sounds: Yes: S1, S2 Musculoskeletal: No: Back Pain Extremities: No: Cold Edema: Yes Edema: trace le edema bl Integumentary: No: Jaundice Neurological: Yes: Alert, Oriented Psychiatric: No: Agitated CBC, BMP 09/27/18 08:15 10/01/18 05:30 [facility] 10/2017 planned staged PCI of mid LAD [facility] 09/2017 (for inf ischemia on MPI) mild RCA, 80-90% LCx s/p FER, 70-80% mLAD. EDP 25->15 post nitro, EF 50% Echo 05/2018 mildly dilated LV, mild conc LVH, with discrete upper septal component, overal nl LV function EF 55%LA pressure uncertain, no RWMA,nl RV, mild MR, at least mild pulm HTN, mild MRRVSP at least 48 mmHg echo 09/2018 nl LV size, mild to mod reduced LV function EF 40-45%, RV nl, nl biatrial size, mild MR, mild to mod TR, mild ao sclerosis, trivial pericardial effusion, lg pleural effusion tele: sinus Assessment/Plan Acute systolic HF exacerbation - receiving lasix 40 mg IV BID, wt 282->278 lbs, Cr 2.4 on admission, now 2.8 - lg pleural effusion on echo - EF 40-45% on echo here, reportedly reduced function compared to prior in office - holding ARB for GABI - [facility] - 10/01: cr continues to rise. will hold lasix for now and monitor cr tomorrow. GABI on CKD - per outpatient notes reportedly Cr 1.8 in 04/2018, had been planning for outpatient kidney biopsy - holding lasix as above - renal u/s no obstruction - nephrology consulted CAD - s/p FER most recently 09/2017, 10/2017 - on aspirin and plavix HTN - on labetolol 200 mg BID as outpatient, increased to 300 mg BID here - on nifedipine, nitrates - hydralazine increased here for improved BP control, uptitrate as tolerated for improved BP control pulm HTN - mild on echo, likely due to diastolic dysfunction cerebral atherosclerosis - LICA plaque noted 2016 - on aspirin, plavix, statin PAD - hx L 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
--- NOTE | 2018-10-01 11:42 | PN ---
Teaching Attending Note Name of Resident: Navdeep Villalpando ATTENDING PHYSICIAN STATEMENT I saw and evaluated the patient. I reviewed the resident's note and discussed the case with the resident. I agree with the resident's findings and plan as documented. SUBJECTIVE: SOB/cough/LE edema improving. No orthopnea/PND. No fever/chills/ sputum. OBJECTIVE: Afebrile, Hemodynamically Stable. Comfortably lying flat. Last Vital Signs Temp Pulse Resp BP Pulse Ox 98.5 F 74 20 132/70 96 10/01/18 08:43 10/01/18 08:43 10/01/18 08:43 10/01/18 08:43 09/30/18 21:00 HEENT - Atraumatic, Normocephalic Heart - S1, S2, SM Lungs - decreased air entry at bases L > R Abdomen - soft, non-tender. Bowel Sounds normal. Extremities - LE edema improving. Laboratory Results - last 24 hr 09/30/18 09/30/18 09/30/18 05:30 15:02 15:02 Sodium 143 Potassium 3.8 Chloride 108 H Carbon Dioxide 27 Anion Gap 7 L BUN 56 H Creatinine 3.3 H Creat Clearance w eGFR 19.42 POC Glucometer Random Glucose 114 H Calcium 7.3 L Phosphorus 4.1 Magnesium 1.9 Creatine Kinase 548 H Creatine Kinase Index 0.6 CK-MB (CK-2) 3.8 H Urine Color Yellow Urine Appearance Cloudy Urine pH 5.0 Ur Specific [place] 1.017 Urine Protein 3+ H Urine Glucose (UA) 1+ H Urine Ketones Negative Urine Blood Negative Urine Nitrite Negative Urine Bilirubin Negative Urine Urobilinogen 0.2 Ur Leukocyte Esterase Negative Urine WBC (Auto) 4 Urine RBC (Auto) 5.6 Urine Casts (Auto) 59 U Pathogenic Cast Auto Coarse granular U Epithel Cells (Auto) 4.7 Urine Crystals (Auto) Coat Checker Urine Bacteria (Auto) 1.5 U Random Total Protein Ur Random Urea Nitrogn Urine Creatinine 128.0 09/30/18 09/30/18 09/30/18 15:02 15:02 16:41 Sodium Potassium Chloride Carbon Dioxide Anion Gap BUN Creatinine Creat Clearance w eGFR POC Glucometer 189 Random Glucose Calcium Phosphorus Magnesium Creatine Kinase Creatine Kinase Index CK-MB (CK-2) Urine Color Urine Appearance Urine pH Ur Specific [place] Urine Protein Urine Glucose (UA) Urine Ketones Urine Blood Urine Nitrite Urine Bilirubin Urine Urobilinogen Ur Leukocyte Esterase Urine WBC (Auto) Urine RBC (Auto) Urine Casts (Auto) U Pathogenic Cast Auto U Epithel Cells (Auto) Urine Crystals (Auto) Urine Bacteria (Auto) U Random Total Protein 473.2 H Ur Random Urea Nitrogn 424 Urine Creatinine 09/30/18 10/01/18 10/01/18 21:58 05:30 06:56 Sodium 144 Potassium 3.8 Chloride 108 H Carbon Dioxide 29 Anion Gap 7 L BUN 60 H Creatinine 3.5 H Creat Clearance w eGFR 18.14 POC Glucometer 249 104 Random Glucose 93 Calcium 7.8 L Phosphorus 4.4 Magnesium 1.9 Creatine Kinase Creatine Kinase Index CK-MB (CK-2) Urine Color Urine Appearance Urine pH Ur Specific [place] Urine Protein Urine Glucose (UA) Urine Ketones Urine Blood Urine Nitrite Urine Bilirubin Urine Urobilinogen Ur Leukocyte Esterase Urine WBC (Auto) Urine RBC (Auto) Urine Casts (Auto) U Pathogenic Cast Auto U Epithel Cells (Auto) Urine Crystals (Auto) Urine Bacteria (Auto) U Random Total Protein Ur Random Urea Nitrogn Urine Creatinine Current Medications Generic Name Dose Route Start Last Admin Trade Name Freq PRN Reason Stop Dose Admin Aspirin 81 mg 09/26/18 10:00 10/01/18 09:41 Ecotrin - PO 81 mg DAILY [facility] Administration Atorvastatin Calcium 40 mg 09/25/18 22:00 09/30/18 22:02 Lipitor - PO 40 mg HS SANGEETHA Administration Clopidogrel Bisulfate 75 mg 09/26/18 10:00 10/01/18 09:41 Plavix - PO 75 mg DAILY [facility] Administration Guaifenesin 10 ml 09/27/18 22:20 09/29/18 10:32 Robitussin Dm - PO 10 ml Q8H PRN Administration COUGH Heparin Sodium (Porcine) 5,000 unit 09/25/18 22:00 10/01/18 06:59 Heparin - SQ 5,000 unit TID [facility] Administration Hydralazine HCl 25 mg 09/28/18 11:47 10/01/18 06:59 Apresoline - PO 25 mg TID SANGEETHA Administration Insulin Aspart 1 vial 09/25/18 22:00 10/01/18 06:57 Novolog Vial Sliding Scale - SQ Not Given ACHS [facility] Protocol Isosorbide Mononitrate 30 mg 09/28/18 18:30 10/01/18 09:41 Imdur - PO 30 mg DAILY SANGEETHA Administration Labetalol HCl 300 mg 09/28/18 22:00 10/01/18 09:40 Normodyne - PO 300 mg BID SANGEETHA Administration Nifedipine 90 mg 09/29/18 10:00 10/01/18 09:41 Procardia Xl - PO 90 mg DAILY SANGEETHA Administration Ranolazine 500 mg 09/25/18 22:00 10/01/18 09:41 Ranexa - PO 500 mg BID SANGEETHA Administration Tamsulosin HCl 0.4 mg 09/26/18 08:30 10/01/18 09:30 Flomax - PO 0.4 mg DAILY@0830 SANGEETHA Administration ASSESSMENT/PLAN 58 year old Male with DM 2, HTN, HLD, BPH, CAD s/p PCI/Stent x 2, 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 1. Acute on Chronic Systolic CHF sec to CAD s/p PCI/FER x 2 (last 09/21) Echo - global hypokinesis, EF 45% Responding to IV Lasix - now on hold due to rising Creatinine. Normally on Metolazone at home, now held. Daily weight/I and Os. Continue Ranexa, Aspirin, Plavix, BB, Statin 2. GABI on CKD 3 Renal US - no obstruction. Renal function worsening on IV Lasix, now held. Nephrology following 3. Hypertensive Urgency - BP better controlled, continue Nifedipine, Labetolol, Imdur. ARB held due to GABI. Labetolol dose increased to 300mg bid. 4. DM 2 - Continue Novolog sliding scale. Glipizide held. 5. BPH - Continue Flomax 6. PAD s/p L SFA Stent - Continue Aspring/Plavix, Statin. DVT Px - Heparin SQ
[2018-10-01 11:59] VITALS: BMI 36.1
--- NOTE | 2018-10-01 16:07 | PN ---
Progress Note (short form) - Note Progress Note: Renal follow up for GABI Pt seen and examined at the bedside awake and alert offers no acute complaints reports SOB is improved legs feel better as well making urne no flank pain, dysuira Vital Signs Temperature 97.4 F L 10/01/18 14:00 Pulse Rate 72 10/01/18 14:00 Respiratory Rate 20 10/01/18 14:00 Blood Pressure 110/58 L 10/01/18 14:00 O2 Sat by Pulse Oximetry (%) 96 10/01/18 09:00 Intake & Output 09/28/18 09/29/18 09/30/18 10/01/18 23:59 23:59 23:59 23:59 Intake Total 242 458 2712 100 Output Total 800 400 500 Balance -500 300 700 -400 Weight 126.824 kg 126.371 kg 126.28 kg 127.459 kg NAD on room air CTA, no rales or wheeze soft NT/ND no bladder distension ++ edema in LE no cyanosis or clubbing CBC, BMP 09/27/18 08:15 10/01/18 05:30 Current Medications Aspirin (Ecotrin -) 81 mg PO DAILY [facility] Last Admin: 10/01/18 09:41 Dose: 81 mg Atorvastatin Calcium (Lipitor -) 40 mg PO HS [facility] Last Admin: 09/30/18 22:02 Dose: 40 mg Clopidogrel Bisulfate (Plavix -) 75 mg PO DAILY [facility] Last Admin: 10/01/18 09:41 Dose: 75 mg Guaifenesin (Robitussin Dm -) 10 ml PO Q8H PRN PRN Reason: COUGH Last Admin: 09/29/18 10:32 Dose: 10 ml Heparin Sodium (Porcine) (Heparin -) 5,000 unit SQ TID [facility] Last Admin: 10/01/18 13:14 Dose: 5,000 unit Hydralazine HCl (Apresoline -) 25 mg PO TID [facility] Last Admin: 10/01/18 13:16 Dose: 25 mg Insulin Aspart (Novolog Vial Sliding Scale -) 1 vial SQ [facility]; Protocol Last Admin: 10/01/18 11:55 Dose: Not Given Isosorbide Mononitrate (Imdur -) 30 mg PO DAILY [facility] Last Admin: 10/01/18 09:41 Dose: 30 mg Labetalol HCl (Normodyne -) 300 mg PO BID [facility] Last Admin: 10/01/18 09:40 Dose: 300 mg Nifedipine (Procardia Xl -) 90 mg PO DAILY [facility] Last Admin: 10/01/18 09:41 Dose: 90 mg Ranolazine (Ranexa -) 500 mg PO BID [facility] Last Admin: 10/01/18 09:41 Dose: 500 mg Tamsulosin HCl (Flomax -) 0.4 mg PO DAILY@0830 [facility] Last Admin: 10/01/18 09:30 Dose: 0.4 mg 58 year old gentleman with hx of CAD s/p PCI and stenting, hypertension, DM, Hyperlipidemia, CKD (baseline Cr ~2) who presented with SOB and admitted for CHF exacerbation with GABI. #GABI from Cardio-renal syndrome vs. renal hypoprofusion in setting of IV diuresis vs. AIN (lasix) vs. GN vs. 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
[2018-10-01] MEDS: ATORVASTATIN CA 40 MG TABLET (FP) PO SCH (21:43)
[2018-10-02] MEDS: HEPARIN NA (PORCINE) 5,000 UNITS/ML 1ML VIAL SQ SCH ×3 (05:40→22:00)
[2018-10-02] MEDS: hydrALAZINE HCL 25 MG TABLET (FP) PO SCH ×3 (05:40→21:32)
[2018-10-02 06:46] LABS: ANION GAP 9 MMOL/L (8-16); BLOOD UREA NITROGEN 66 mg/dL (7-18); CALCIUM 7.6 mg/dL (8.5-10.1); CHLORIDE 105 mmol/L (98-107); CO2 28 mmol/L (21-32); CREATININE 3.9 mg/dL (0.55-1.3); GLUCOSE,RANDOM 111 mg/dL (74-106); MAGNESIUM 1.6 mg/dL (1.8-2.4); PHOSPHOROUS 4.4 mg/dL (2.5-4.9); POTASSIUM 3.7 mmol/L (3.5-5.1); SODIUM 142 mmol/L (136-145)
[2018-10-02] MEDS ORDERED: MAGNESIUM SULF 50% (8.12 MEQ/2 ML-1 GM VIAL) IVPB ONE (07:02)
--- NOTE | 2018-10-02 07:05 | PN ---
Physical Exam: SUBJECTIVE: Patient seen and examined at bedside. States that he feels better, as his lower extremities are less swollen. can lay more flat when sleeping. No further complaint. denies fever, chills, cp, sob, n/v/d. Cr 3.5.....3.9 today OBJECTIVE: Vital Signs Period Temp Pulse Resp BP Sys/Lopez Pulse Ox Last 24 Hr 97.4 F-98.7 F 71-74 20-20 110-132/58-70 94-96 GENERAL: The patient is pleasant. AOX3 NAD HEAD: NCAT EYES: PERRL, extraocular movements intact, sclera anicteric, conjunctiva clear. ENT: nares patent, oropharynx clear without exudates, MMM NECK: Trachea midline, supple. LUNGS: crackles at bases, mildly improving HEART: RRR, S1, S2 without murmur, rub or gallop. ABDOMEN: Soft, obese, NTND, normoactive bowel sounds, no guarding, no rebound EXTREMITIES: 2+ pt pulses, warm, well-perfused. 2+ pitting edema, mildly improving NEUROLOGICAL: Cranial nerves II through XII grossly intact. sensation intact. able to lift lower extremities today. PSYCH: Normal mood, normal affect. SKIN: Warm, dry, normal turgor Laboratory Results - last 24 hr 10/01/18 10/01/18 10/01/18 05:30 06:56 11:48 Sodium 144 Potassium 3.8 Chloride 108 H Carbon Dioxide 29 Anion Gap 7 L BUN 60 H Creatinine 3.5 H Creat Clearance w eGFR 18.14 POC Glucometer 104 111 Random Glucose 93 Calcium 7.8 L Phosphorus 4.4 Magnesium 1.9 10/01/18 10/01/18 10/02/18 16:19 21:41 05:30 Sodium 142 Potassium 3.7 Chloride 105 Carbon Dioxide 28 Anion Gap 9 BUN 66 H Creatinine 3.9 H Creat Clearance w eGFR 16.01 POC Glucometer 122 119 Random Glucose 111 H Calcium 7.6 L Phosphorus 4.4 Magnesium 1.6 L 10/02/18 05:43 Sodium Potassium Chloride Carbon Dioxide Anion Gap BUN Creatinine Creat Clearance w eGFR POC Glucometer 117 Random Glucose Calcium Phosphorus Magnesium Active Medications Generic Name Dose Route Start Last Admin Trade Name Freq PRN Reason Stop Dose Admin Aspirin 81 mg 09/26/18 10:00 10/01/18 09:41 Ecotrin - PO 81 mg DAILY SANGEETHA Administration Atorvastatin Calcium 40 mg 09/25/18 22:00 10/01/18 21:43 Lipitor - PO 40 mg HS SANGEETHA Administration Clopidogrel Bisulfate 75 mg 09/26/18 10:00 10/01/18 09:41 Plavix - PO 75 mg DAILY SANGEETHA Administration Guaifenesin 10 ml 09/27/18 22:20 09/29/18 10:32 Robitussin Dm - PO 10 ml Q8H PRN Administration COUGH Heparin Sodium (Porcine) 5,000 unit 09/25/18 22:00 10/02/18 05:40 Heparin - SQ 5,000 unit TID SANGEETHA Administration Hydralazine HCl 25 mg 09/28/18 11:47 10/02/18 05:40 Apresoline - PO 25 mg TID SANGEETHA Administration Insulin Aspart 1 vial 09/25/18 22:00 10/01/18 21:43 Novolog Vial Sliding Scale - SQ Not Given ACHS [facility] Protocol Isosorbide Mononitrate 30 mg 09/28/18 18:30 10/01/18 09:41 Imdur - PO 30 mg DAILY SANGEETHA Administration Labetalol HCl 300 mg 09/28/18 22:00 10/01/18 21:43 Normodyne - PO 300 mg BID SANGEETHA Administration Magnesium Sulfate 2 gm 10/02/18 07:02 Magnesium Sulfate IVPB 10/02/18 07:03 ONCE ONE Nifedipine 90 mg 09/29/18 10:00 10/01/18 09:41 Procardia Xl - PO 90 mg DAILY SANGEETHA Administration Ranolazine 500 mg 09/25/18 22:00 10/01/18 21:43 Ranexa - PO 500 mg BID SANGEETHA Administration Tamsulosin HCl 0.4 mg 09/26/18 08:30 10/01/18 09:30 Flomax - PO 0.4 mg DAILY@0830 SANGEETHA Administration [facility] 10/2017 planned staged PCI of mid LAD [facility] 09/2017 (for inf ischemia on MPI) mild RCA, 80-90% LCx s/p FER, 70-80% mLAD. EDP 25->15 post nitro, EF 50% Echo 05/2018 mildly dilated LV, mild conc LVH, with discrete upper septal component, overal nl LV function EF 55%LA pressure uncertain, no RWMA,nl RV, mild MR, at least mild pulm HTN, mild MRRVSP at least 48 mmHg ECHO 09/28/18 Interpretation Summary The left ventricle is normal in size. Left ventricular systolic function is mild to moderately reduced. There is mild to moderate global hypokinesis of the left ventricle. Ejection Fraction = 40-45%. The right ventricular systolic function is normal. The left atrial size is normal. Right atrial size is normal. There is mild mitral regurgitation. There is mild to moderate tricuspid regurgitation. There is mild aortic sclerosis.; Trivial pericardial effusion not hemodynamically significant Large pleural effusion Previous study is not available for comparsion [id number] US/KIDNEY / RENAL US Renal insufficiency Renal ultrasound The right kidney measures 13.2 cm in sagittal length and the left kidney measured 13 cm. Both kidneys appear morphologically unremarkable. There is no gross evidence of hydronephrosis or renal stones, bilaterally. Visualized portion of the liver and spleen appear unremarkable. Note is made of bilateral pleural effusion. IMPRESSION: Both kidneys appear unremarkable without gross evidence of hydronephrosis or renal stones. Note is made of bilateral pleural effusion. ASSESSMENT/PLAN: 58 y/o M with PMH DM, HTN, HLD, CKD (baseline Cr ~2), CAD s/p 2 FER cardiac stents (10/2017), L4/L5 vertebral OM, PVD who presents to the ED c/o SOB over the past two weeks and found to be in volume overload suspected due to CHF #Acute on Chronic Systolic CHF exacerbation - modest improvement but today wt stable, Cr cont rising, overall remains volume up. f/w gitig in outpt. -ECHO - EF 40-45%, mild to moderate global hypokinesis of LV, Large pleural effusion -per cardio has +stress in 09/2017 and had stent x2 placed at that time. will need to optimize his therapy at this time. any may require repeat stress once euvolemic -per cardio, c/w labetolol and uptitrate for BP ctl as needed as HTN is likely cause for cardiomyopathy causing reduced EF. c/w increased dose of 300 bid. Ideally should be on coreg for HFref but now more important to ctl HTN as likely culprit of hypokinesis seen on echo. -c/w hydral 25 TID and uptitrate as needed -c/w home dose imdur 30 and nifedipine 90 -10/02: wt stable, Cr continues to rise. will cont to hold lasix 80 mg BID -strict I/o, 2g Na control, daily wts -c/w ASA/statin -cont to hold ARB and re-start once renal function improves -Cardio consult (Ana) -trops 0.05..0.06...0.05 -PT eval #GABI on CKD III #GABI likely 2/2 Cardio-renal syndrome vs. renal hypoprofusion in setting of IV diuresis - FeUrea 19.5% c/w pre-renal. however AIN (lasix) vs. GN vs. Rhabdo ( elevated CK on admission) cannot be excluded. 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 -pt is non-oliguric -Cr increasing 2.8....3.3...3.5...3.9 today, Renal function cont to worsen despite holding lasix -cont to hold lasix 80 bid and ARB with worsening GABI -f/u urine eosinophils -f/u serology/immunology w/u for nephrotic range proteinuria -Renal U/S not suggestive of any acute disease or obstruction. 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 - New Patient This patient is new to me today: Yes Date on this admission: 10/02/18 - Critical Care Critical Care patient: No
[2018-10-02] MEDS: ASPIRIN COATED 81 MG TABLET.EC PO SCH (10:01)
[2018-10-02] MEDS: CLOPIDOGREL BISULFATE 75 MG TABLET (FP) PO SCH (10:01)
[2018-10-02] MEDS: TAMSULOSIN HCL 0.4 MG CAP PO SCH (10:02)
[2018-10-02] MEDS: ISOSORBIDE MONONITRATE 30 MG TAB.SR.24H (FP) PO SCH (10:02)
[2018-10-02] MEDS: RANOLAZINE E.R. 500 MG TABLET (FP) PO SCH ×2 (10:02→21:32)
[2018-10-02] MEDS: NIFEdipine E.R. 90 MG TABLET (FP) PO SCH (10:02)
[2018-10-02] MEDS: LABETALOL HCL 100 MG TABLET (FP) PO SCH ×2 (10:02→21:32)
--- NOTE | 2018-10-02 11:16 | PN ---
Progress Note (short form) - Note Progress Note: s: edema stable. no orthopnea, chest pain, palps, dizziness. sob improved Current Medications Generic Name Dose Route Start Last Admin Trade Name Elizabeth PRN Reason Stop Dose Admin Aspirin 81 mg 09/26/18 10:00 10/02/18 10:01 Ecotrin - PO 81 mg DAILY SANGEETHA Administration Atorvastatin Calcium 40 mg 09/25/18 22:00 10/01/18 21:43 Lipitor - PO 40 mg HS SANGEETHA Administration Clopidogrel Bisulfate 75 mg 09/26/18 10:00 10/02/18 10:01 Plavix - PO 75 mg DAILY SANGEETHA Administration Guaifenesin 10 ml 09/27/18 22:20 09/29/18 10:32 Robitussin Dm - PO 10 ml Q8H PRN Administration COUGH Heparin Sodium (Porcine) 5,000 unit 09/25/18 22:00 10/02/18 05:40 Heparin - SQ 5,000 unit TID SANGEETHA Administration Hydralazine HCl 25 mg 09/28/18 11:47 10/02/18 05:40 Apresoline - PO 25 mg TID SANGEETHA Administration Insulin Aspart 1 vial 09/25/18 22:00 10/01/18 21:43 Novolog Vial Sliding Scale - SQ Not Given ACHS [facility] Protocol Isosorbide Mononitrate 30 mg 09/28/18 18:30 10/02/18 10:02 Imdur - PO 30 mg DAILY SANGEETHA Administration Labetalol HCl 300 mg 09/28/18 22:00 10/02/18 10:02 Normodyne - PO 300 mg BID SANGEETHA Administration Nifedipine 90 mg 09/29/18 10:00 10/02/18 10:02 Procardia Xl - PO 90 mg DAILY SANGEETHA Administration Ranolazine 500 mg 09/25/18 22:00 10/02/18 10:02 Ranexa - PO 500 mg BID SANGEETHA Administration Tamsulosin HCl 0.4 mg 09/26/18 08:30 10/02/18 10:02 Flomax - PO 0.4 mg DAILY@0830 SANGEETHA Administration Vital Signs: Vital Signs Period Temp Pulse Resp BP Sys/Lopez Pulse Ox Last 24 Hr 97.4 F-98.7 F 71-73 20-20 110-134/58-70 94 Constitutional: Yes: Well Nourished, No Distress, Calm Eyes: Yes: Conjunctiva Clear Respiratory: Yes: Regular, CTA Bilaterally Gastrointestinal: Yes: Normal Bowel Sounds, Soft Cardiovascular: Yes: Regular Rate and Rhythm JVD: No Heart Sounds: Yes: S1, S2 Musculoskeletal: No: Back Pain Extremities: No: Cold Edema: Yes Edema: trace le edema bl Integumentary: No: Jaundice Neurological: Yes: Alert, Oriented Psychiatric: No: Agitated CBC, BMP 09/27/18 08:15 10/02/18 05:30 [facility] 10/2017 planned staged PCI of mid LAD [facility] 09/2017 (for inf ischemia on MPI) mild RCA, 80-90% LCx s/p FER, 70-80% mLAD. EDP 25->15 post nitro, EF 50% Echo 05/2018 mildly dilated LV, mild conc LVH, with discrete upper septal component, overal nl LV function EF 55%LA pressure uncertain, no RWMA,nl RV, mild MR, at least mild pulm HTN, mild MRRVSP at least 48 mmHg echo 09/2018 nl LV size, mild to mod reduced LV function EF 40-45%, RV nl, nl biatrial size, mild MR, mild to mod TR, mild ao sclerosis, trivial pericardial effusion, lg pleural effusion tele: sinus Assessment/Plan Acute systolic HF exacerbation - receiving lasix 40 mg IV BID, wt 282->278 lbs, Cr 2.4 on admission, now 2.8 - lg pleural effusion on echo - EF 40-45% on echo here, reportedly reduced function compared to prior in office - holding ARB for GABI - on labetolol at increased - 10/01-: cr continues to rise. will continue to hold lasix for now and monitor cr tomorrow. GABI on CKD - per outpatient notes reportedly Cr 1.8 in 04/2018, had been planning for outpatient kidney biopsy - holding lasix as above - renal u/s no obstruction - nephrology consulted CAD - s/p FER most recently 09/2017, 10/2017 - on aspirin and plavix HTN - on labetolol 200 mg BID as outpatient, increased to 300 mg BID here - on nifedipine, nitrates - hydralazine increased here for improved BP control, uptitrate as tolerated for improved BP control pulm HTN - mild on echo, likely due to diastolic dysfunction cerebral atherosclerosis - LICA plaque noted 2016 - on aspirin, plavix, statin PAD - hx L SFA stent, 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
[2018-10-02] MEDS: INSULIN SLIDING SCALE (NOVOLOG) 1 VIAL SQ SCH ×4 (11:47→21:38)
--- NOTE | 2018-10-02 12:55 | PN ---
Progress Note (short form) - Note Progress Note: Renal follow up for GABI Pt seen and examined at the bedside awake and alert offers no acute complaints Vital Signs Temperature 98.2 F 10/02/18 09:00 Pulse Rate 72 10/02/18 09:00 Respiratory Rate 18 10/02/18 09:00 Blood Pressure 142/80 10/02/18 09:00 O2 Sat by Pulse Oximetry (%) 95 10/02/18 09:00 Intake & Output 09/29/18 09/30/18 10/01/18 10/02/18 23:59 23:59 23:59 23:59 Intake Total 300 1100 720 360 Output Total 400 1100 300 Balance 300 700 -380 60 Weight 126.371 kg 126.28 kg 127.459 kg 127.459 kg NAD on room air CTA, no rales or wheeze soft NT/ND no bladder distension ++ edema in LE no cyanosis or clubbing CBC, BMP 09/27/18 08:15 10/02/18 05:30 Current Medications Aspirin (Ecotrin -) 81 mg PO DAILY [facility] Last Admin: 10/02/18 10:01 Dose: 81 mg Atorvastatin Calcium (Lipitor -) 40 mg PO HS [facility] Last Admin: 10/01/18 21:43 Dose: 40 mg Clopidogrel Bisulfate (Plavix -) 75 mg PO DAILY [facility] Last Admin: 10/02/18 10:01 Dose: 75 mg Guaifenesin (Robitussin Dm -) 10 ml PO Q8H PRN PRN Reason: COUGH Last Admin: 09/29/18 10:32 Dose: 10 ml Heparin Sodium (Porcine) (Heparin -) 5,000 unit SQ TID [facility] Last Admin: 10/02/18 05:40 Dose: 5,000 unit Hydralazine HCl (Apresoline -) 25 mg PO TID [facility] Last Admin: 10/02/18 05:40 Dose: 25 mg Insulin Aspart (Novolog Vial Sliding Scale -) 1 vial SQ [facility]; Protocol Last Admin: 10/02/18 11:47 Dose: Not Given Isosorbide Mononitrate (Imdur -) 30 mg PO DAILY [facility] Last Admin: 10/02/18 10:02 Dose: 30 mg Labetalol HCl (Normodyne -) 300 mg PO BID [facility] Last Admin: 10/02/18 10:02 Dose: 300 mg Nifedipine (Procardia Xl -) 90 mg PO DAILY [facility] Last Admin: 10/02/18 10:02 Dose: 90 mg Ranolazine (Ranexa -) 500 mg PO BID [facility] Last Admin: 10/02/18 10:02 Dose: 500 mg Tamsulosin HCl (Flomax -) 0.4 mg PO DAILY@0830 [facility] Last Admin: 10/02/18 10:02 Dose: 0.4 mg 58 year old gentleman with hx of CAD s/p PCI and stenting, hypertension, DM, Hyperlipidemia, CKD (baseline Cr ~2) who presented with SOB and admitted for CHF exacerbation with GABI. #GABI from Cardio-renal syndrome vs. renal hypoprofusion in setting of IV diuresis vs. AIN (lasix) vs. GN #CKD likely due to diabetic nephropathy #CHF exacerbation #CAD #DM #Hyeprtension #Hyperlipidemia #Anemia Renal function slightly worse today pt is non-oliguric given nephrotic range proteinuria will send serologic work up if renal function not improving in 48 hours off diuretics can consider renal biopsy FeUrea was 21% indicating preserved tubular function, UPCR in nephrotic range, Urine Eos pending Cardiology following Check Renal vein doppler and LE Doppler to r/o thrombosis Thank you Mansoor Quiroz DO
[2018-10-02] MEDS: ACETAMINOPHEN 325 MG TABLET (FP) PO PRN (17:32)
--- NOTE | 2018-10-02 20:50 | PN ---
Teaching Attending Note Name of Resident: Navdeep Villalpando ATTENDING PHYSICIAN STATEMENT I saw and evaluated the patient. I reviewed the resident's note and discussed the case with the resident. I agree with the resident's findings and plan as documented. SUBJECTIVE: SOB/cough/LE edema improving. No orthopnea/PND. No fever/chills/ sputum. Producing urine. OBJECTIVE: Afebrile, Hemodynamically Stable Last Vital Signs Temp Pulse Resp BP Pulse Ox 97.3 F L 72 18 119/71 96 10/02/18 17:00 10/02/18 17:00 10/02/18 20:30 10/02/18 17:00 10/02/18 20:30 HEENT - Atraumatic, Normocephalic Heart - S1, S2, SM Lungs - decreased air entry at bases L > R Abdomen - soft, non-tender. Bowel Sounds normal. Extremities - LE edema improving. Laboratory Results - last 24 hr 09/30/18 10/01/18 10/02/18 15:02 21:41 05:30 Sodium 142 Potassium 3.7 Chloride 105 Carbon Dioxide 28 Anion Gap 9 BUN 66 H Creatinine 3.9 H Creat Clearance w eGFR 16.01 POC Glucometer 119 Random Glucose 111 H Calcium 7.6 L Phosphorus 4.4 Magnesium 1.6 L Urine Eosinophils None seen RPR Titer 10/02/18 10/02/18 10/02/18 05:43 10:30 11:22 Sodium Potassium Chloride Carbon Dioxide Anion Gap BUN Creatinine Creat Clearance w eGFR POC Glucometer 117 126 Random Glucose Calcium Phosphorus Magnesium Urine Eosinophils RPR Titer Nonreactive 10/02/18 16:23 Sodium Potassium Chloride Carbon Dioxide Anion Gap BUN Creatinine Creat Clearance w eGFR POC Glucometer 130 Random Glucose Calcium Phosphorus Magnesium Urine Eosinophils RPR Titer Current Medications Generic Name Dose Route Start Last Admin Trade Name Freq PRN Reason Stop Dose Admin Acetaminophen 650 mg 10/02/18 16:38 10/02/18 17:32 Tylenol - PO 650 mg Q6H PRN Administration PAIN LEVEL 1 - 3 Aspirin 81 mg 09/26/18 10:00 10/02/18 10:01 Ecotrin - PO 81 mg DAILY SANGEETHA Administration Atorvastatin Calcium 40 mg 09/25/18 22:00 10/01/18 21:43 Lipitor - PO 40 mg HS SANGEETHA Administration Clopidogrel Bisulfate 75 mg 09/26/18 10:00 10/02/18 10:01 Plavix - PO 75 mg DAILY SANGEETHA Administration Guaifenesin 10 ml 09/27/18 22:20 09/29/18 10:32 Robitussin Dm - PO 10 ml Q8H PRN Administration COUGH Heparin Sodium (Porcine) 5,000 unit 09/25/18 22:00 10/02/18 13:55 Heparin - SQ 5,000 unit TID SANGEETHA Administration Hydralazine HCl 25 mg 09/28/18 11:47 10/02/18 13:56 Apresoline - PO 25 mg TID SANGEETHA Administration Insulin Aspart 1 vial 09/25/18 22:00 10/02/18 16:27 Novolog Vial Sliding Scale - SQ Not Given ACHS [facility] Protocol Isosorbide Mononitrate 30 mg 09/28/18 18:30 10/02/18 10:02 Imdur - PO 30 mg DAILY SANGEETHA Administration Labetalol HCl 300 mg 09/28/18 22:00 10/02/18 10:02 Normodyne - PO 300 mg BID SANGEETHA Administration Nifedipine 90 mg 09/29/18 10:00 10/02/18 10:02 Procardia Xl - PO 90 mg DAILY SANGEETHA Administration Ranolazine 500 mg 09/25/18 22:00 10/02/18 10:02 Ranexa - PO 500 mg BID SANGEETHA Administration Tamsulosin HCl 0.4 mg 09/26/18 08:30 10/02/18 10:02 Flomax - PO 0.4 mg DAILY@0830 SANGEETHA Administration ASSESSMENT AND PLAN: 58 year old Male with DM 2, HTN, HLD, BPH, CKD 3, CAD s/p PCI/Stent x 2, 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 1. Acute on Chronic Systolic CHF sec to CAD s/p PCI/FER x 2 (last 09/21) Echo - global hypokinesis, EF 45% Responding to IV Lasix - now on hold due to rising Creatinine. Normally on Metolazone at home, now held. Daily weight/I and Os. Continue Ranexa, Aspirin, Plavix, BB, Statin 2. GABI on CKD 3 ? Cardio-renal syndrome versus intravascular depletion sec to IV Lasix diuresis Renal US - no obstruction. Renal function worsened on IV Lasix, now held. Nephrology evaluated and recommend Renal Doppler along with LE duplex- both studies negative for thrombosis. Serology work-up requested given nephrotic range proteinuria. 3. Hypertensive Urgency - BP better controlled, continue Hydralazine, Nifedipine , Labetolol, Imdur. ARB held due to GABI. Labetolol dose increased to 300mg bid. 4. DM 2 - Continue Novolog sliding scale. Glipizide held. 5. BPH - Continue Flomax 6. PAD s/p L SFA Stent - Continue Asprin/Plavix, Statin. DVT Px - Heparin SQ
[2018-10-02] MEDS: ATORVASTATIN CA 40 MG TABLET (FP) PO SCH (21:32)
[2018-10-03 02:12] LABS: HEP.C VIRUS AB 0.2 s/co ratio (0.0-0.9)
[2018-10-03] MEDS: INSULIN SLIDING SCALE (NOVOLOG) 1 VIAL SQ SCH ×4 (06:02→22:20)
[2018-10-03] MEDS: HEPARIN NA (PORCINE) 5,000 UNITS/ML 1ML VIAL SQ SCH ×3 (06:12→22:22)
[2018-10-03] MEDS: hydrALAZINE HCL 25 MG TABLET (FP) PO SCH ×3 (06:13→22:22)
[2018-10-03 09:04] LABS: ANION GAP 6 MMOL/L (8-16); BLOOD UREA NITROGEN 73 mg/dL (7-18); CALCIUM 7.8 mg/dL (8.5-10.1); CHLORIDE 106 mmol/L (98-107); CO2 27 mmol/L (21-32); CREATININE 4.1 mg/dL (0.55-1.3); GLUCOSE,RANDOM 117 mg/dL (74-106); MAGNESIUM 2.5 mg/dL (1.8-2.4); PHOSPHOROUS 4.5 mg/dL (2.5-4.9); SODIUM 139 mmol/L (136-145)
[2018-10-03] MEDS: LABETALOL HCL 100 MG TABLET (FP) PO SCH ×2 (10:16→22:22)
[2018-10-03] MEDS: NIFEdipine E.R. 90 MG TABLET (FP) PO SCH (10:16)
[2018-10-03] MEDS: RANOLAZINE E.R. 500 MG TABLET (FP) PO SCH ×2 (10:17→22:21)
[2018-10-03] MEDS: CLOPIDOGREL BISULFATE 75 MG TABLET (FP) PO SCH (10:17)
[2018-10-03] MEDS: ISOSORBIDE MONONITRATE 30 MG TAB.SR.24H (FP) PO SCH (10:17)
[2018-10-03] MEDS: ASPIRIN COATED 81 MG TABLET.EC PO SCH (10:17)
[2018-10-03] MEDS: TAMSULOSIN HCL 0.4 MG CAP PO SCH (10:17)
[2018-10-03] MEDS: ACETAMINOPHEN 325 MG TABLET (FP) PO PRN ×2 (11:16→22:24)
--- NOTE | 2018-10-03 12:19 | PN ---
Physical Exam: SUBJECTIVE: Patient seen and examined at bedside. States that he feels better, as his lower extremities are less swollen. can lay more flat when sleeping. No further complaint. denies fever, chills, cp, sob, n/v/d. Cr 3.5....3.9...4.1 today OBJECTIVE: Vital Signs Period Temp Pulse Resp BP Sys/Lopez Pulse Ox Last 24 Hr 97.1 F-98.4 F 69-75 18-18 119-152/68-92 96 GENERAL: The patient is pleasant. AOX3 NAD HEAD: NCAT EYES: PERRL, extraocular movements intact, sclera anicteric, conjunctiva clear. ENT: nares patent, oropharynx clear without exudates, MMM NECK: Trachea midline, supple. LUNGS: crackles at bases, mildly improving HEART: RRR, S1, S2 without murmur, rub or gallop. ABDOMEN: Soft, obese, NTND, normoactive bowel sounds, no guarding, no rebound EXTREMITIES: 2+ pt pulses, warm, well-perfused. 2+ pitting edema, mildly improving R>L NEUROLOGICAL: Cranial nerves II through XII grossly intact. sensation intact. able to lift lower extremities today. PSYCH: Normal mood, normal affect. SKIN: Warm, dry, normal turgor Laboratory Results - last 24 hr 09/30/18 10/02/18 10/02/18 15:02 10:30 16:23 Sodium Potassium Chloride Carbon Dioxide Anion Gap BUN Creatinine Creat Clearance w eGFR POC Glucometer 130 Random Glucose Calcium Phosphorus Magnesium Urine Eosinophils None seen Hepatitis A IgM Ab Negative Hep Bs Antigen Negative Hep B Core IgM Ab Negative Hepatitis C Antibody 0.2 10/02/18 10/03/18 10/03/18 20:48 05:38 07:40 Sodium 139 Potassium 4.0 Chloride 106 Carbon Dioxide 27 Anion Gap 6 L BUN 73 H Creatinine 4.1 H Creat Clearance w eGFR 15.12 POC Glucometer 157 108 Random Glucose 117 H Calcium 7.8 L Phosphorus 4.5 Magnesium 2.5 H Urine Eosinophils Hepatitis A IgM Ab Hep Bs Antigen Hep B Core IgM Ab Hepatitis C Antibody 10/03/18 11:18 Sodium Potassium Chloride Carbon Dioxide Anion Gap BUN Creatinine Creat Clearance w eGFR POC Glucometer 145 Random Glucose Calcium Phosphorus Magnesium Urine Eosinophils Hepatitis A IgM Ab Hep Bs Antigen Hep B Core IgM Ab Hepatitis C Antibody Active Medications Generic Name Dose Route Start Last Admin Trade Name Freq PRN Reason Stop Dose Admin Acetaminophen 650 mg 10/02/18 16:38 10/03/18 11:16 Tylenol - PO 650 mg Q6H PRN Administration PAIN LEVEL 1 - 3 Aspirin 81 mg 09/26/18 10:00 10/03/18 10:17 Ecotrin - PO 81 mg DAILY SANGEETHA Administration Atorvastatin Calcium 40 mg 09/25/18 22:00 10/02/18 21:32 Lipitor - PO 40 mg HS SANGEETHA Administration Clopidogrel Bisulfate 75 mg 09/26/18 10:00 10/03/18 10:17 Plavix - PO 75 mg DAILY SANGEETHA Administration Guaifenesin 10 ml 09/27/18 22:20 09/29/18 10:32 Robitussin Dm - PO 10 ml Q8H PRN Administration COUGH Heparin Sodium (Porcine) 5,000 unit 09/25/18 22:00 10/03/18 06:12 Heparin - SQ 5,000 unit TID [facility] Administration Hydralazine HCl 25 mg 09/28/18 11:47 10/03/18 06:13 Apresoline - PO 25 mg TID [facility] Administration Insulin Aspart 1 vial 09/25/18 22:00 10/03/18 11:56 Novolog Vial Sliding Scale - SQ Not Given ACHS [facility] Protocol Isosorbide Mononitrate 30 mg 09/28/18 18:30 10/03/18 10:17 Imdur - PO 30 mg DAILY SANGEETHA Administration Labetalol HCl 300 mg 09/28/18 22:00 10/03/18 10:16 Normodyne - PO 300 mg BID [facility] Administration Nifedipine 90 mg 09/29/18 10:00 10/03/18 10:16 Procardia Xl - PO 90 mg DAILY [facility] Administration Ranolazine 500 mg 09/25/18 22:00 10/03/18 10:17 Ranexa - PO 500 mg BID [facility] Administration Tamsulosin HCl 0.4 mg 09/26/18 08:30 10/03/18 10:17 Flomax - PO 0.4 mg DAILY@0830 SANGEETHA Administration [facility] 10/2017 planned staged PCI of mid LAD [facility] 09/2017 (for inf ischemia on MPI) mild RCA, 80-90% LCx s/p FER, 70-80% mLAD. EDP 25->15 post nitro, EF 50% Echo 05/2018 mildly dilated LV, mild conc LVH, with discrete upper septal component, overal nl LV function EF 55%LA pressure uncertain, no RWMA,nl RV, mild MR, at least mild pulm HTN, mild MRRVSP at least 48 mmHg ECHO 09/28/18 Interpretation Summary The left ventricle is normal in size. Left ventricular systolic function is mild to moderately reduced. There is mild to moderate global hypokinesis of the left ventricle. Ejection Fraction = 40-45%. The right ventricular systolic function is normal. The left atrial size is normal. Right atrial size is normal. There is mild mitral regurgitation. There is mild to moderate tricuspid regurgitation. There is mild aortic sclerosis.; Trivial pericardial effusion not hemodynamically significant Large pleural effusion Previous study is not available for comparsion [id number] US/KIDNEY / RENAL US Renal insufficiency Renal ultrasound The right kidney measures 13.2 cm in sagittal length and the left kidney measured 13 cm. Both kidneys appear morphologically unremarkable. There is no gross evidence of hydronephrosis or renal stones, bilaterally. Visualized portion of the liver and spleen appear unremarkable. Note is made of bilateral pleural effusion. IMPRESSION: Both kidneys appear unremarkable without gross evidence of hydronephrosis or renal stones. Note is made of bilateral pleural effusion. ASSESSMENT/PLAN: 58 y/o M with PMH DM, HTN, HLD, CKD (baseline Cr ~2), CAD s/p 2 FER cardiac stents (10/2017), L4/L5 vertebral OM, PVD who presents to the ED c/o SOB over the past two weeks and found to be in volume overload suspected due to CHF #Acute on Chronic Systolic CHF exacerbation - modest improvement but today wt stable, Cr cont rising, overall remains volume up. f/w gitig in outpt. -ECHO - EF 40-45%, mild to moderate global hypokinesis of LV, Large pleural effusion -per cardio has +stress in 09/2017 and had stent x2 placed at that time. will need to optimize his therapy at this time. any may require repeat stress once euvolemic -per cardio, c/w labetolol and uptitrate for BP ctl as needed as HTN is likely cause for cardiomyopathy causing reduced EF. c/w increased dose of 300 bid. Ideally should be on coreg for HFref but now more important to ctl HTN as likely culprit of hypokinesis seen on echo. -c/w hydral 25 TID and uptitrate as needed -c/w home dose imdur 30 and nifedipine 90 -10/03: wt stable, Cr continues to rise. will cont to hold lasix 80 mg BID -strict I/o, 2g Na control, daily wts -c/w ASA/statin -cont to hold ARB and re-start once renal function improves -Cardio consult ([facility]) -trops 0.05..0.06...0.05 -PT eval #GABI on CKD III #GABI likely 2/2 Cardio-renal syndrome vs. renal hypoprofusion in setting of IV diuresis - FeUrea 19.5% c/w pre-renal. however AIN (lasix) vs. GN vs. Rhabdo ( elevated CK on admission) cannot be excluded. 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 -pt is non-oliguric -Cr increasing 2.8....3.3...3.5...3.9...4.1 today, Renal function cont to worsen despite holding lasix -cont to hold lasix 80 bid and ARB with worsening GABI -urine eosinophils none -f/u serology/immunology w/u for nephrotic range proteinuria -RPR, Hepatitis panel negative -Renal U/S not suggestive of any acute disease or obstruction. -Nephrology evaluated and recommend Renal Doppler along with LE duplex- both studies negative for thrombosis. -if renal function not improving in 48 hours off diuretics can consider renal biopsy #CAD s/p FER most recently 09/2017, 10/2017 -c/w asa, ranexa, plavix, statin #HTN urgency- resolved -c/w increased labetolol dose of 300 bid and uptitrate as needed -c/w hydral 25 TID and uptitrate as needed -c/w home dose imdur 30 and nifedipine 90 -hold ARB as w GABI #cerebral atherosclerosis - LICA plaque noted 2016 #PAD - hx L SFA stent, [employer] of left 2016 #hx of L4L5 vertebral OM #HLD -c/w lipitor #DM -A1c 4.5 -ISS, BGM ACHS, hold oral agents #F/E/N no IVF at this time continue to follow lytes Na controlled/diabetic/ heart healthy diet #PPX DVT: Hep 5k SQ TID #Dispo dc tele, transfer to /s pt may benefit from outpt cardiac rehab Visit type - Emergency Visit Emergency Visit: Yes ED Registration Date: 09/25/18 Care time: The patient presented to the Emergency Department on the above date and was hospitalized for further evaluation of their emergent condition. - New Patient This patient is new to me today: Yes Date on this admission: 10/03/18 - Critical Care Critical Care patient: No
--- NOTE | 2018-10-03 12:25 | PN ---
Progress Note (short form) - Note Progress Note: s: edema stable. no orthopnea, chest pain, palps, dizziness. sob improved Current Medications Generic Name Dose Route Start Last Admin Trade Name Fremarina PRN Reason Stop Dose Admin Acetaminophen 650 mg 10/02/18 16:38 10/03/18 11:16 Tylenol - PO 650 mg Q6H PRN Administration PAIN LEVEL 1 - 3 Aspirin 81 mg 09/26/18 10:00 10/03/18 10:17 Ecotrin - PO 81 mg DAILY SANGEETHA Administration Atorvastatin Calcium 40 mg 09/25/18 22:00 10/02/18 21:32 Lipitor - PO 40 mg HS SANGEETHA Administration Clopidogrel Bisulfate 75 mg 09/26/18 10:00 10/03/18 10:17 Plavix - PO 75 mg DAILY SANGEETHA Administration Guaifenesin 10 ml 09/27/18 22:20 09/29/18 10:32 Robitussin Dm - PO 10 ml Q8H PRN Administration COUGH Heparin Sodium (Porcine) 5,000 unit 09/25/18 22:00 10/03/18 06:12 Heparin - SQ 5,000 unit TID [facility] Administration Hydralazine HCl 25 mg 09/28/18 11:47 10/03/18 06:13 Apresoline - PO 25 mg TID SANGEETHA Administration Insulin Aspart 1 vial 09/25/18 22:00 10/03/18 11:56 Novolog Vial Sliding Scale - SQ Not Given ACHS [facility] Protocol Isosorbide Mononitrate 30 mg 09/28/18 18:30 10/03/18 10:17 Imdur - PO 30 mg DAILY SANGEETHA Administration Labetalol HCl 300 mg 09/28/18 22:00 10/03/18 10:16 Normodyne - PO 300 mg BID SANGEETHA Administration Nifedipine 90 mg 09/29/18 10:00 10/03/18 10:16 Procardia Xl - PO 90 mg DAILY SANGEETHA Administration Ranolazine 500 mg 09/25/18 22:00 10/03/18 10:17 Ranexa - PO 500 mg BID SANGEETHA Administration Tamsulosin HCl 0.4 mg 09/26/18 08:30 10/03/18 10:17 Flomax - PO 0.4 mg DAILY@0830 SANGEETHA Administration Vital Signs: Vital Signs Period Temp Pulse Resp BP Sys/Lopez Pulse Ox Last 24 Hr 97.1 F-98.4 F 69-75 18-18 119-152/68-92 96 Constitutional: Yes: Well Nourished, No Distress, Calm Eyes: Yes: Conjunctiva Clear Respiratory: Yes: Regular, CTA Bilaterally Gastrointestinal: Yes: Normal Bowel Sounds, Soft Cardiovascular: Yes: Regular Rate and Rhythm JVD: No Heart Sounds: Yes: S1, S2 Musculoskeletal: No: Back Pain Extremities: No: Cold Edema: Yes Edema: trace le edema bl Integumentary: No: Jaundice Neurological: Yes: Alert, Oriented Psychiatric: No: Agitated CBC, BMP 09/27/18 08:15 10/03/18 07:40 [facility] 10/2017 planned staged PCI of mid LAD [facility] 09/2017 (for inf ischemia on MPI) mild RCA, 80-90% LCx s/p FER, 70-80% mLAD. EDP 25->15 post nitro, EF 50% Echo 05/2018 mildly dilated LV, mild conc LVH, with discrete upper septal component, overal nl LV function EF 55%LA pressure uncertain, no RWMA,nl RV, mild MR, at least mild pulm HTN, mild MRRVSP at least 48 mmHg echo 09/2018 nl LV size, mild to mod reduced LV function EF 40-45%, RV nl, nl biatrial size, mild MR, mild to mod TR, mild ao sclerosis, trivial pericardial effusion, lg pleural effusion Assessment/Plan Acute systolic HF exacerbation - receiving lasix 40 mg IV BID, wt 282->278 lbs, Cr 2.4 on admission, now 2.8 - lg pleural effusion on echo - EF 40-45% on echo here, reportedly reduced function compared to prior in office - holding ARB for GABI - on labetolol at increased - 10/01-: cr continues to rise. will continue to hold lasix for now and monitor cr. GABI on CKD - per outpatient notes reportedly Cr 1.8 in 04/2018, had been planning for outpatient kidney biopsy - holding lasix as above - renal u/s no obstruction - nephrology consulted CAD - s/p FER most recently 09/2017, 10/2017 - on aspirin and plavix HTN - on labetolol 200 mg BID as outpatient, increased to 300 mg BID here - on nifedipine, nitrates - hydralazine increased here for improved BP control, uptitrate as tolerated for improved BP control pulm HTN - mild on echo, likely due to diastolic dysfunction cerebral atherosclerosis - LICA plaque noted 2016 - on aspirin, plavix, statin PAD - hx L SFA stent, [employer] of left 2017 - aspirin, statin, plavix HLD - cont statin DM - manage per primary
--- NOTE | 2018-10-03 14:43 | PN ---
Teaching Attending Note Name of Resident: Navdeep Villalpando ATTENDING PHYSICIAN STATEMENT I saw and evaluated the patient. I reviewed the resident's note and discussed the case with the resident. I agree with the resident's findings and plan as documented. SUBJECTIVE: SOB/cough/LE edema improving. No orthopnea/PND. No fever/chills/ sputum. Producing urine. OBJECTIVE: Afebrile, Hemodynamically Stable Last Vital Signs Temp Pulse Resp BP Pulse Ox 97.7 F 70 18 145/88 96 10/03/18 13:28 10/03/18 13:28 10/03/18 13:28 10/03/18 13:28 10/02/18 20:30 HEENT - Atraumatic, Normocephalic Heart - S1, S2, SM Lungs - decreased air entry at bases L > R Abdomen - soft, non-tender. Bowel Sounds normal. Extremities - LE edema +, improving. Laboratory Results - last 24 hr 09/30/18 10/02/18 10/02/18 15:02 10:30 16:23 Sodium Potassium Chloride Carbon Dioxide Anion Gap BUN Creatinine Creat Clearance w eGFR POC Glucometer 130 Random Glucose Calcium Phosphorus Magnesium Urine Eosinophils None seen Hepatitis A IgM Ab Negative Hep Bs Antigen Negative Hep B Core IgM Ab Negative Hepatitis C Antibody 0.2 10/02/18 10/03/18 10/03/18 20:48 05:38 07:40 Sodium 139 Potassium 4.0 Chloride 106 Carbon Dioxide 27 Anion Gap 6 L BUN 73 H Creatinine 4.1 H Creat Clearance w eGFR 15.12 POC Glucometer 157 108 Random Glucose 117 H Calcium 7.8 L Phosphorus 4.5 Magnesium 2.5 H Urine Eosinophils Hepatitis A IgM Ab Hep Bs Antigen Hep B Core IgM Ab Hepatitis C Antibody 10/03/18 11:18 Sodium Potassium Chloride Carbon Dioxide Anion Gap BUN Creatinine Creat Clearance w eGFR POC Glucometer 145 Random Glucose Calcium Phosphorus Magnesium Urine Eosinophils Hepatitis A IgM Ab Hep Bs Antigen Hep B Core IgM Ab Hepatitis C Antibody Current Medications Generic Name Dose Route Start Last Admin Trade Name Freq PRN Reason Stop Dose Admin Acetaminophen 650 mg 10/02/18 16:38 10/03/18 11:16 Tylenol - PO 650 mg Q6H PRN Administration PAIN LEVEL 1 - 3 Aspirin 81 mg 09/26/18 10:00 10/03/18 10:17 Ecotrin - PO 81 mg DAILY SANGEETHA Administration Atorvastatin Calcium 40 mg 09/25/18 22:00 10/02/18 21:32 Lipitor - PO 40 mg HS SANGEETHA Administration Clopidogrel Bisulfate 75 mg 09/26/18 10:00 10/03/18 10:17 Plavix - PO 75 mg DAILY SANGEETHA Administration Guaifenesin 10 ml 09/27/18 22:20 09/29/18 10:32 Robitussin Dm - PO 10 ml Q8H PRN Administration COUGH Heparin Sodium (Porcine) 5,000 unit 09/25/18 22:00 10/03/18 13:24 Heparin - SQ 5,000 unit TID SANGEETHA Administration Hydralazine HCl 25 mg 09/28/18 11:47 10/03/18 13:24 Apresoline - PO 25 mg TID SANGEETHA Administration Insulin Aspart 1 vial 09/25/18 22:00 10/03/18 11:56 Novolog Vial Sliding Scale - SQ Not Given ACHS [facility] Protocol Isosorbide Mononitrate 30 mg 09/28/18 18:30 10/03/18 10:17 Imdur - PO 30 mg DAILY SANGEETHA Administration Labetalol HCl 300 mg 09/28/18 22:00 10/03/18 10:16 Normodyne - PO 300 mg BID SANGEETHA Administration Nifedipine 90 mg 09/29/18 10:00 10/03/18 10:16 Procardia Xl - PO 90 mg DAILY SANGEETHA Administration Ranolazine 500 mg 09/25/18 22:00 10/03/18 10:17 Ranexa - PO 500 mg BID SANGEETHA Administration Tamsulosin HCl 0.4 mg 09/26/18 08:30 10/03/18 10:17 Flomax - PO 0.4 mg DAILY@0830 SANGEETHA Administration ASSESSMENT AND PLAN: 58 year old Male with DM 2, HTN, HLD, BPH, CKD 3, CAD s/p PCI/Stent x 2, 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 1. Acute on Chronic Systolic CHF sec to CAD s/p PCI/FER x 2 (last 09/21) Echo - global hypokinesis, EF 45% Responded to IV Lasix - now on hold due to rising Creatinine. Normally on Metolazone at home, now held. Daily weight/I and Os. Continue Ranexa, Aspirin, Plavix, BB, Statin 2. GABI on CKD 3 ? Cardio-renal syndrome versus intravascular depletion sec to IV Lasix diuresis Renal US - no obstruction. Renal function worsened on IV Lasix, now held. BUN 73/Creat 4.1 Nephrology evaluated and recommend Renal Doppler along with LE duplex - both studies negative for thrombosis. Serology work-up including ANCAs requested given nephrotic range proteinuria - results pending. Hepatitis panel negative. Awaiting further Nephrology guidance re: possible Renal Bx. 3. Hypertensive Urgency - BP better controlled. Continue Hydralazine, Nifedipine , Labetolol, Imdur. ARB held due to GABI. Labetolol dose increased to 300mg bid. 4. DM 2 - Continue Novolog sliding scale. Glipizide held. 5. BPH - Continue Flomax 6. PAD s/p L SFA Stent - Continue Asprin/Plavix, Statin. DVT Px - Heparin SQ
--- NOTE | 2018-10-03 17:53 | PN ---
Progress Note (short form) - Note Progress Note: 58 year old gentleman with hx of CAD s/p PCI and stenting, hypertension, DM, Hyperlipidemia, CKD (baseline Cr ~2) CHF exacerbation with GABI. #GABI from Cardio-renal syndrome vs. renal hypoprofusion in setting of IV diuresis vs. AIN (lasix) vs. GN vs. 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 Current Medications Acetaminophen (Tylenol -) 650 mg PO Q6H PRN PRN Reason: PAIN LEVEL 1 - 3 Last Admin: 10/03/18 11:16 Dose: 650 mg Aspirin (Ecotrin -) 81 mg PO DAILY COUNTS INCLUDE 234 BEDS AT THE [facility] Last Admin: 10/03/18 10:17 Dose: 81 mg Atorvastatin Calcium (Lipitor -) 40 mg PO HS COUNTS INCLUDE 234 BEDS AT THE [facility] Last Admin: 10/02/18 21:32 Dose: 40 mg Clopidogrel Bisulfate (Plavix -) 75 mg PO DAILY COUNTS INCLUDE 234 BEDS AT THE [facility] Last Admin: 10/03/18 10:17 Dose: 75 mg Guaifenesin (Robitussin Dm -) 10 ml PO Q8H PRN PRN Reason: COUGH Last Admin: 09/29/18 10:32 Dose: 10 ml Heparin Sodium (Porcine) (Heparin -) 5,000 unit SQ TID COUNTS INCLUDE 234 BEDS AT THE [facility] Last Admin: 10/03/18 13:24 Dose: 5,000 unit Hydralazine HCl (Apresoline -) 25 mg PO TID COUNTS INCLUDE 234 BEDS AT THE [facility] Last Admin: 10/03/18 13:24 Dose: 25 mg Insulin Aspart (Novolog Vial Sliding Scale -) 1 vial SQ [facility] COUNTS INCLUDE 234 BEDS AT THE [facility]; Protocol Last Admin: 10/03/18 17:17 Dose: Not Given Isosorbide Mononitrate (Imdur -) 30 mg PO DAILY COUNTS INCLUDE 234 BEDS AT THE [facility] Last Admin: 10/03/18 10:17 Dose: 30 mg Labetalol HCl (Normodyne -) 300 mg PO BID COUNTS INCLUDE 234 BEDS AT THE [facility] Last Admin: 10/03/18 10:16 Dose: 300 mg Nifedipine (Procardia Xl -) 90 mg PO DAILY COUNTS INCLUDE 234 BEDS AT THE [facility] Last Admin: 10/03/18 10:16 Dose: 90 mg Ranolazine (Ranexa -) 500 mg PO BID COUNTS INCLUDE 234 BEDS AT THE [facility] Last Admin: 10/03/18 10:17 Dose: 500 mg Tamsulosin HCl (Flomax -) 0.4 mg PO DAILY@0830 COUNTS INCLUDE 234 BEDS AT THE [facility] Last Admin: 10/03/18 10:17 Dose: 0.4 mg Last Vital Signs Temp Pulse Resp BP Pulse Ox 97.7 F 70 18 145/88 96 10/03/18 14:42 10/03/18 14:42 10/03/18 14:42 10/03/18 14:42 10/02/18 20:30 CBC, BMP 09/27/18 08:15 10/03/18 07:40
[2018-10-03] MEDS: ATORVASTATIN CA 40 MG TABLET (FP) PO SCH (22:22)
[2018-10-04] MEDS: HEPARIN NA (PORCINE) 5,000 UNITS/ML 1ML VIAL SQ SCH ×3 (05:54→23:25)
[2018-10-04] MEDS: hydrALAZINE HCL 25 MG TABLET (FP) PO SCH ×3 (05:54→23:24)
[2018-10-04 07:26] LABS: ANION GAP 6 MMOL/L (8-16); BLOOD UREA NITROGEN 74 mg/dL (7-18); CALCIUM 7.3 mg/dL (8.5-10.1); CHLORIDE 106 mmol/L (98-107); CO2 28 mmol/L (21-32); CREATININE 4.4 mg/dL (0.55-1.3); GLUCOSE,RANDOM 113 mg/dL (74-106); MAGNESIUM 2.2 mg/dL (1.8-2.4); PHOSPHOROUS 4.9 mg/dL (2.5-4.9); POTASSIUM 4.2 mmol/L (3.5-5.1); SODIUM 140 mmol/L (136-145)
[2018-10-04] MEDS: RANOLAZINE E.R. 500 MG TABLET (FP) PO SCH ×2 (09:24→23:25)
[2018-10-04] MEDS: NIFEdipine E.R. 90 MG TABLET (FP) PO SCH (09:24)
[2018-10-04] MEDS: LABETALOL HCL 100 MG TABLET (FP) PO SCH ×2 (09:24→23:24)
[2018-10-04] MEDS: TAMSULOSIN HCL 0.4 MG CAP PO SCH (09:24)
[2018-10-04] MEDS: ASPIRIN COATED 81 MG TABLET.EC PO SCH (09:24)
[2018-10-04] MEDS: ACETAMINOPHEN 325 MG TABLET (FP) PO PRN ×2 (09:24→16:16)
[2018-10-04] MEDS: CLOPIDOGREL BISULFATE 75 MG TABLET (FP) PO SCH (09:24)
[2018-10-04] MEDS: ISOSORBIDE MONONITRATE 30 MG TAB.SR.24H (FP) PO SCH (09:24)
--- NOTE | 2018-10-04 11:05 | PN ---
Progress Note (short form) - Note Progress Note: SUBJECTIVE: SOB/cough/LE edema much improved. No orthopnea/PND. No fever/chills/ sputum. Producing urine. OBJECTIVE: Afebrile, Hemodynamically Stable. Flattened affect, appropriate vocal responses. Last Vital Signs Temp Pulse Resp BP Pulse Ox 98 F 75 18 144/79 98 10/04/18 10:00 10/04/18 10:00 10/04/18 10:00 10/04/18 10:00 10/04/18 09:00 HEENT - Atraumatic, Normocephalic Heart - S1, S2, SM Lungs - decreased air entry at bases Abdomen - soft, non-tender. Bowel Sounds normal. Extremities - LE edema improving. No calf tenderness Laboratory Results - last 24 hr 10/02/18 10/03/18 10/03/18 10:30 11:18 16:26 Sodium Potassium Chloride Carbon Dioxide Anion Gap BUN Creatinine Creat Clearance w eGFR POC Glucometer 145 130 Random Glucose Calcium Phosphorus Magnesium OLIVE Screen Negative 10/03/18 10/04/18 10/04/18 21:58 05:53 06:00 Sodium 140 Potassium 4.2 Chloride 106 Carbon Dioxide 28 Anion Gap 6 L BUN 74 H Creatinine 4.4 H Creat Clearance w eGFR 13.93 POC Glucometer 150 110 Random Glucose 113 H Calcium 7.3 L Phosphorus 4.9 Magnesium 2.2 OLIVE Screen Current Medications Generic Name Dose Route Start Last Admin Trade Name Freq PRN Reason Stop Dose Admin Acetaminophen 650 mg 10/02/18 16:38 10/04/18 09:24 Tylenol - PO 650 mg Q6H PRN Administration PAIN LEVEL 1 - 3 Aspirin 81 mg 09/26/18 10:00 10/04/18 09:24 Ecotrin - PO 81 mg DAILY [facility] Administration Atorvastatin Calcium 40 mg 09/25/18 22:00 10/03/18 22:22 Lipitor - PO 40 mg HS SANGEETHA Administration Clopidogrel Bisulfate 75 mg 09/26/18 10:00 10/04/18 09:24 Plavix - PO 75 mg DAILY [facility] Administration Guaifenesin 10 ml 09/27/18 22:20 09/29/18 10:32 Robitussin Dm - PO 10 ml Q8H PRN Administration COUGH Heparin Sodium (Porcine) 5,000 unit 09/25/18 22:00 10/04/18 05:54 Heparin - SQ 5,000 unit TID SANGEETHA Administration Hydralazine HCl 25 mg 09/28/18 11:47 10/04/18 05:54 Apresoline - PO 25 mg TID SANGE[facility]HA Administration Insulin Aspart 1 vial 09/25/18 22:00 10/03/18 22:20 Novolog Vial Sliding Scale - SQ Not Given ACHS [facility] Protocol Isosorbide Mononitrate 30 mg 09/28/18 18:30 10/04/18 09:24 Imdur - PO 30 mg DAILY [facility] Administration Labetalol HCl 300 mg 09/28/18 22:00 10/04/18 09:24 Normodyne - PO 300 mg BID S[facility] Administration Nifedipine 90 mg 09/29/18 10:00 10/04/18 09:24 Procardia Xl - PO 90 mg DAILY [facility] Administration Ranolazine 500 mg 09/25/18 22:00 10/04/18 09:24 Ranexa - PO 500 mg BID S[facility] Administration Tamsulosin HCl 0.4 mg 09/26/18 08:30 10/04/18 09:24 Flomax - PO 0.4 mg DAILY@0830 S[facility]HA Administration ASSESSMENT AND PLAN: 58 year old Male with DM 2, HTN, HLD, BPH, CKD 3, CAD s/p PCI/Stent x 2, 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 1. Acute on Chronic Systolic CHF sec to CAD s/p PCI/FER x 2 (last 09/21) - improving Echo - global hypokinesis, EF 45% Responded to IV Lasix - now on hold due to rising Creatinine. Normally on Metolazone at home, now held. Daily weight/I and Os. Continue Ranexa, Aspirin, Plavix, BB, Statin 2. GABI on CKD 3 ? Cardio-renal syndrome versus intravascular depletion sec to IV Lasix diuresis Renal US - no obstruction. Renal function worsening daily - now BUN 74/Creat 4.4. No symptoms of Uremia Nephrology evaluated and recommend Renal Doppler along with LE duplex - both studies negative for thrombosis. Serology work-up including ANCAs requested given nephrotic range proteinuria - results pending. Hepatitis panel negative. Awaiting further Nephrology guidance re: possible Renal Bx and further recommendations for declining renal function. 3. Hypertensive Urgency - resolved. BP better controlled. Continue Hydralazine, Nifedipine, Labetolol, Imdur. ARB held due to GABI. Labetolol dose increased to 300mg bid. 4. DM 2 - Continue Novolog sliding scale. Glipizide held. 5. BPH - Continue Flomax 6. PAD s/p L SFA Stent - Continue Asprin/Plavix, Statin. DVT Px - Heparin SQ Visit type - Emergency Visit Emergency Visit: Yes ED Registration Date: 09/25/18 Care time: The patient presented to the Emergency Department on the above date and was hospitalized for further evaluation of their emergent condition. - New Patient This patient is new to me today: No - Critical Care Critical Care patient: No - Discharge Referral Referred to [facility] Med P.C.: No
[2018-10-04] MEDS: INSULIN SLIDING SCALE (NOVOLOG) 1 VIAL SQ SCH ×3 (14:08→23:24)
--- NOTE | 2018-10-04 20:00 | PN ---
Progress Note (short form) - Note Progress Note: 58 year old gentleman with hx of CAD s/p PCI and stenting, hypertension, DM, Hyperlipidemia, CKD (baseline Cr ~2) CHF exacerbation with GABI. GABI unclear etiology possibilities Cardio-renal syndrome/ renal hypoprofusion/AIN (lasix)/ GN / Rhabdo Underlying CKD likely due to diabetic nephropathy CHF exacerbation CAD DM Hypertension Hyperlipidemia Anemia Current Medications Acetaminophen (Tylenol -) 650 mg PO Q6H PRN PRN Reason: PAIN LEVEL 1 - 3 Last Admin: 10/04/18 16:16 Dose: 650 mg Aspirin (Ecotrin -) 81 mg PO DAILY [facility] Last Admin: 10/04/18 09:24 Dose: 81 mg Atorvastatin Calcium (Lipitor -) 40 mg PO HS [facility] Last Admin: 10/03/18 22:22 Dose: 40 mg Clopidogrel Bisulfate (Plavix -) 75 mg PO DAILY [facility] Last Admin: 10/04/18 09:24 Dose: 75 mg Guaifenesin (Robitussin Dm -) 10 ml PO Q8H PRN PRN Reason: COUGH Last Admin: 09/29/18 10:32 Dose: 10 ml Heparin Sodium (Porcine) (Heparin -) 5,000 unit SQ TID [facility] Last Admin: 10/04/18 14:09 Dose: 5,000 unit Hydralazine HCl (Apresoline -) 25 mg PO TID [facility] Last Admin: 10/04/18 14:09 Dose: 25 mg Insulin Aspart (Novolog Vial Sliding Scale -) 1 vial SQ [facility]; Protocol Last Admin: 10/04/18 17:32 Dose: Not Given Isosorbide Mononitrate (Imdur -) 30 mg PO DAILY [facility] Last Admin: 10/04/18 09:24 Dose: 30 mg Labetalol HCl (Normodyne -) 300 mg PO BID [facility] Last Admin: 10/04/18 09:24 Dose: 300 mg Nifedipine (Procardia Xl -) 90 mg PO DAILY [facility] Last Admin: 10/04/18 09:24 Dose: 90 mg Ranolazine (Ranexa -) 500 mg PO BID [facility] Last Admin: 10/04/18 09:24 Dose: 500 mg Tamsulosin HCl (Flomax -) 0.4 mg PO DAILY@0830 [facility] Last Admin: 10/04/18 09:24 Dose: 0.4 mg Last Vital Signs Temp Pulse Resp BP Pulse Ox 98 F 70 18 132/73 98 10/04/18 19:26 10/04/18 19:26 10/04/18 19:26 10/04/18 19:26 10/04/18 09:00 Lungs clear Heart reg Abd soft nontender Ext mod edema CBC, BMP 09/27/18 08:15 10/04/18 06:00 CBC, BMP 09/27/18 08:15 10/03/18 07:40 GABI azotemia continues to trend upward Plan- may need a kidney biopsy hes on plavix and asa need cardiology input about the risk of stopping antiplatelet tx discussed with pmd
[2018-10-04] MEDS: ATORVASTATIN CA 40 MG TABLET (FP) PO SCH (23:24)
[2018-10-05] MEDS: hydrALAZINE HCL 25 MG TABLET (FP) PO SCH ×3 (05:39→22:50)
[2018-10-05] MEDS: HEPARIN NA (PORCINE) 5,000 UNITS/ML 1ML VIAL SQ SCH ×3 (05:39→22:51)
[2018-10-05] MEDS: INSULIN SLIDING SCALE (NOVOLOG) 1 VIAL SQ SCH ×6 (06:16→22:45)
[2018-10-05 07:56] LABS: HEMATOCRIT 25.9 % (35.4-49); HEMOGLOBIN 8.3 GM/dL (11.7-16.9); MCH 27.3 pg (25.7-33.7); MEAN CELL VOLUME 85.4 fl (80-96); MEAN PLT VOLUME 7.4 fl (7.5-11.1); PLATELET COUNT 265 K/MM3 (134-434); RBC 3.03 M/mm3 (4.00-5.60); RDW 14.8 % (11.9-15.9); WHITE BLOOD COUNT 4.3 K/mm3 (4.0-10.0)
[2018-10-05 08:31] LABS: ALBUMIN 2.2 g/dl (3.4-5.0); ALK PHOS 119 U/L (45-117); ANION GAP 7 MMOL/L (8-16); BILIRUBIN,TOTAL 0.5 mg/dL (0.2-1); BLOOD UREA NITROGEN 78 mg/dL (7-18); CALCIUM 7.9 mg/dL (8.5-10.1); CHLORIDE 106 mmol/L (98-107); CO2 26 mmol/L (21-32); CREATININE 4.2 mg/dL (0.55-1.3); GLUCOSE,RANDOM 123 mg/dL (74-106); MAGNESIUM 2.5 mg/dL (1.8-2.4); PHOSPHOROUS 4.7 mg/dL (2.5-4.9); POTASSIUM 4.3 mmol/L (3.5-5.1); SGOT/AST 27 U/L (15-37); SGPT/ALT 66 U/L (13-61); SODIUM 139 mmol/L (136-145); TOT PROT 5.8 g/dl (6.4-8.2)
[2018-10-05] MEDS ORDERED: INSULIN (NOVOLOG) ASPART 100 UNITS/ML 10ML VIAL ONE (09:09)
[2018-10-05] MEDS: NIFEdipine E.R. 90 MG TABLET (FP) PO SCH (10:20)
[2018-10-05] MEDS: RANOLAZINE E.R. 500 MG TABLET (FP) PO SCH ×2 (10:21→22:50)
[2018-10-05] MEDS: TAMSULOSIN HCL 0.4 MG CAP PO SCH (10:21)
[2018-10-05] MEDS: CLOPIDOGREL BISULFATE 75 MG TABLET (FP) PO SCH (10:21)
[2018-10-05] MEDS: ASPIRIN COATED 81 MG TABLET.EC PO SCH (10:21)
[2018-10-05] MEDS: ISOSORBIDE MONONITRATE 30 MG TAB.SR.24H (FP) PO SCH (10:21)
[2018-10-05] MEDS: LABETALOL HCL 100 MG TABLET (FP) PO SCH ×2 (10:21→22:50)
[2018-10-05] MEDS ORDERED: FUROSEMIDE 40 MG/4 ML INJECTABLE VIAL IVPUSH ONE (11:00)
--- NOTE | 2018-10-05 12:06 | PN ---
Progress Note (short form) - Note Progress Note: Renal follow up for GABI Pt seen and examined at the bedside reported increased dyspnea with change in position this morning continues to have leg swelling no cp, fever, chills, N/V/D Vital Signs Temperature 97.7 F 10/05/18 05:27 Pulse Rate 69 10/05/18 05:27 Respiratory Rate 18 10/05/18 05:27 Blood Pressure 124/61 10/05/18 05:27 O2 Sat by Pulse Oximetry (%) 98 10/04/18 21:00 NAD on room air CTA, no rales or wheeze soft NT/ND no bladder distension ++ edema in LE no cyanosis or clubbing CBC, BMP 10/05/18 07:15 10/05/18 07:15 Current Medications Acetaminophen (Tylenol -) 650 mg PO Q6H PRN PRN Reason: PAIN LEVEL 1 - 3 Last Admin: 10/04/18 16:16 Dose: 650 mg Aspirin (Ecotrin -) 81 mg PO DAILY [facility] Last Admin: 10/05/18 10:21 Dose: 81 mg Atorvastatin Calcium (Lipitor -) 40 mg PO HS [facility] Last Admin: 10/04/18 23:24 Dose: 40 mg Clopidogrel Bisulfate (Plavix -) 75 mg PO DAILY [facility] Last Admin: 10/05/18 10:21 Dose: 75 mg Guaifenesin (Robitussin Dm -) 10 ml PO Q8H PRN PRN Reason: COUGH Last Admin: 09/29/18 10:32 Dose: 10 ml Heparin Sodium (Porcine) (Heparin -) 5,000 unit SQ TID [facility] Last Admin: 10/05/18 05:39 Dose: 5,000 unit Hydralazine HCl (Apresoline -) 25 mg PO TID [facility] Last Admin: 10/05/18 05:39 Dose: 25 mg Insulin Aspart (Novolog Vial Sliding Scale -) 1 vial SQ ACHS [facility]; Protocol Last Admin: 10/05/18 06:16 Dose: Not Given Isosorbide Mononitrate (Imdur -) 30 mg PO DAILY [facility] Last Admin: 10/05/18 10:21 Dose: 30 mg Labetalol HCl (Normodyne -) 300 mg PO BID [facility] Last Admin: 10/05/18 10:21 Dose: 300 mg Nifedipine (Procardia Xl -) 90 mg PO DAILY [facility] Last Admin: 10/05/18 10:20 Dose: 90 mg Ranolazine (Ranexa -) 500 mg PO BID [facility] Last Admin: 10/05/18 10:21 Dose: 500 mg Tamsulosin HCl (Flomax -) 0.4 mg PO DAILY@0830 [facility] Last Admin: 10/05/18 10:21 Dose: 0.4 mg 58 year old gentleman with hx of CAD s/p PCI and stenting, hypertension, DM, Hyperlipidemia, CKD (baseline Cr ~2) who presented with SOB and admitted for CHF exacerbation with GABI. #GABI with unclear etiology #CKD with proteinuria #CHF exacerbation #CAD #DM #Hyeprtension #Hyperlipidemia #Anemia Renal function without significant improvement Imaging studies w/o any definite pathology, serologic work up negative thus far , ANCA are still pending will repeat urine studies today discussed with Dr. Perez will plan to hold ASA and plavix with plan for renal biopsy will need to be off ASA/Plavix for 7 days will coordinate with IR regarding when biopsy can be done give lasix as needed for symptom management dose all meds for CrCl < 20 no acute need for [employer] Thank you Mansoor Quiroz DO
[2018-10-05 14:13] LABS: EPI CELLS 1.4 /HPF (0-5); URINE APPEARANCE CLEAR; URINE BACTERIA 0.7 /hpf (NEGATIVE); URINE BILIRUBIN NEGATIVE (NEGATIVE); URINE CASTS 11 /hpf (0-8); URINE COLOR YELLOW; URINE GLUCOSE (UA) NEGATIVE (NEGATIVE); URINE KETONE NEGATIVE (NEGATIVE); URINE LEUK ESTERASE NEGATIVE (NEGATIVE); URINE NITRITE NEGATIVE (NEGATIVE); URINE PROTEIN 3+ (NEGATIVE); URINE UROBILINOGEN 0.2 mg/dL (0.2-1.0); URINE WBC 2 /hpf (0-5)
--- NOTE | 2018-10-05 14:28 | PN ---
Teaching Attending Note Name of Resident: Navdeep Villalpando ATTENDING PHYSICIAN STATEMENT I saw and evaluated the patient. I reviewed the resident's note and discussed the case with the resident. I agree with the resident's findings and plan as documented. SUBJECTIVE: Complains of increasing SOB and LE edema. No orthopnea/PND. No fever /chills/sputum. Producing good volume urine. OBJECTIVE: Afebrile, Hemodynamically Stable. Weight increasing. Last Vital Signs Temp Pulse Resp BP Pulse Ox 97.5 F L 73 18 131/70 93 L 10/05/18 11:00 10/05/18 11:00 10/05/18 11:00 10/05/18 11:00 10/05/18 09:00 Heart - S1, S2, SM Lungs - decreased air entry at bases, few crackles Abdomen - soft, non-tender. Bowel Sounds normal. Extremities - LE edema ++. No calf tenderness Laboratory Results - last 24 hr 10/04/18 10/04/18 10/05/18 16:55 23:22 05:38 WBC RBC Hgb Hct MCV MCH MCHC RDW Plt Count MPV Sodium Potassium Chloride Carbon Dioxide Anion Gap BUN Creatinine Creat Clearance w eGFR POC Glucometer 126 135 133 Random Glucose Calcium Phosphorus Magnesium Total Bilirubin AST ALT Alkaline Phosphatase Total Protein Albumin Urine Color Urine Appearance Urine pH Ur Specific [place] Urine Protein Urine Glucose (UA) Urine Ketones Urine Blood Urine Nitrite Urine Bilirubin Urine Urobilinogen Ur Leukocyte Esterase Urine WBC (Auto) Urine Casts (Auto) U Epithel Cells (Auto) Urine Bacteria (Auto) Ur Random Urea Nitrogn Urine Creatinine 10/05/18 10/05/18 10/05/18 07:15 07:15 12:12 WBC 4.3 RBC 3.03 L Hgb 8.3 L Hct 25.9 L MCV 85.4 MCH 27.3 MCHC 32.0 RDW 14.8 Plt Count 265 MPV 7.4 L Sodium 139 Potassium 4.3 Chloride 106 Carbon Dioxide 26 Anion Gap 7 L BUN 78 H Creatinine 4.2 H Creat Clearance w eGFR 14.70 POC Glucometer 132 Random Glucose 123 H Calcium 7.9 L Phosphorus 4.7 Magnesium 2.5 H Total Bilirubin 0.5 AST 27 ALT 66 H Alkaline Phosphatase 119 H Total Protein 5.8 L Albumin 2.2 L Urine Color Urine Appearance Urine pH Ur Specific [place] Urine Protein Urine Glucose (UA) Urine Ketones Urine Blood Urine Nitrite Urine Bilirubin Urine Urobilinogen Ur Leukocyte Esterase Urine WBC (Auto) Urine Casts (Auto) U Epithel Cells (Auto) Urine Bacteria (Auto) Ur Random Urea Nitrogn Urine Creatinine 10/05/18 10/05/18 10/05/18 13:30 13:30 13:30 WBC RBC Hgb Hct MCV MCH MCHC RDW Plt Count MPV Sodium Potassium Chloride Carbon Dioxide Anion Gap BUN Creatinine Creat Clearance w eGFR POC Glucometer Random Glucose Calcium Phosphorus Magnesium Total Bilirubin AST ALT Alkaline Phosphatase Total Protein Albumin Urine Color Yellow Urine Appearance Clear Urine pH 5.0 Ur Specific [place] 1.014 Urine Protein 3+ H Urine Glucose (UA) Negative Urine Ketones Negative Urine Blood Negative Urine Nitrite Negative Urine Bilirubin Negative Urine Urobilinogen 0.2 Ur Leukocyte Esterase Negative Urine WBC (Auto) 2 Urine Casts (Auto) 11 U Epithel Cells (Auto) 1.4 Urine Bacteria (Auto) 0.7 Ur Random Urea Nitrogn Cancelled Urine Creatinine Cancelled Current Medications Generic Name Dose Route Start Last Admin Trade Name Julianoq PRN Reason Stop Dose Admin Acetaminophen 650 mg 10/02/18 16:38 10/04/18 16:16 Tylenol - PO 650 mg Q6H PRN Administration PAIN LEVEL 1 - 3 Aspirin 81 mg 09/26/18 10:00 10/05/18 10:21 Ecotrin - PO 81 mg DAILY [facility] Administration Atorvastatin Calcium 40 mg 09/25/18 22:00 10/04/18 23:24 Lipitor - PO 40 mg HS [facility] Administration Clopidogrel Bisulfate 75 mg 09/26/18 10:00 10/05/18 10:21 Plavix - PO 75 mg DAILY [facility] Administration Guaifenesin 10 ml 09/27/18 22:20 09/29/18 10:32 Robitussin Dm - PO 10 ml Q8H PRN Administration COUGH Heparin Sodium (Porcine) 5,000 unit 09/25/18 22:00 10/05/18 13:11 Heparin - SQ 5,000 unit TID [facility] Administration Hydralazine HCl 25 mg 09/28/18 11:47 10/05/18 13:10 Apresoline - PO 25 mg TID [facility] Administration Insulin Aspart 1 vial 09/25/18 22:00 10/05/18 12:13 Novolog Vial Sliding Scale - SQ Not Given ACHS [facility] Protocol Isosorbide Mononitrate 30 mg 09/28/18 18:30 10/05/18 10:21 Imdur - PO 30 mg DAILY [facility] Administration Labetalol HCl 300 mg 09/28/18 22:00 10/05/18 10:21 Normodyne - PO 300 mg BID [facility] Administration Nifedipine 90 mg 09/29/18 10:00 10/05/18 10:20 Procardia Xl - PO 90 mg DAILY [facility] Administration Ranolazine 500 mg 09/25/18 22:00 10/05/18 10:21 Ranexa - PO 500 mg BID [facility] Administration Tamsulosin HCl 0.4 mg 09/26/18 08:30 10/05/18 10:21 Flomax - PO 0.4 mg DAILY@0830 [facility] Administration ASSESSMENT AND PLAN: 58 year old Male with DM 2, HTN, HLD, BPH, CKD 3, CAD s/p PCI/Stent x 2, 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 1. Acute on Chronic Systolic CHF sec to CAD s/p PCI/FER x 2 (last 09/21) - initially improving but then Lasix was stopped due to worsening renal function. Due to worsening SOB and abdominal distension, Lasix now resumed - got Lasix 80mg 10/05 - to re-asses daily for Lasix requirements. Echo - global hypokinesis, EF 45% Normally on Metolazone at home, now held. Daily weight/I and Os. Continue Ranexa, BB, Statin. Aspirin, Plavix to be held for 7 days prior to Renal Bx (cleared with Cardiology) CXR/AXR pending. 2. GABI on CKD 3 ? Cardio-renal syndrome versus intravascular depletion sec to IV Lasix diuresis Renal US - no obstruction. Renal function plateauing - now BUN 78/Creat 4.2. No symptoms of Uremia Nephrology evaluated and recommend Renal Doppler along with LE duplex - both studies negative for thrombosis. Serology work-up including ANCAs requested given nephrotic range proteinuria - results pending. Hepatitis panel negative. Plan for Renal Bx after 1 week off Aspirin/Plavix 3. Hypertensive Urgency - resolved. BP better controlled. Continue Hydralazine, Nifedipine, Labetolol, Imdur. ARB held due to GABI. Labetolol dose increased to 300mg bid. 4. DM 2 - Continue Novolog sliding scale. Glipizide held. 5. BPH - Continue Flomax 6. PAD s/p L SFA Stent - Asprin/Plavix held from 10/06/18 for future Renal Bx. Continue Statin. 7. Normocytic Anemia, Chronic - likely sec to worsening CKD - further management as per Nephrology. Will send Anemia work-up to ensure no deficiencies. DVT Px - Heparin SQ
--- NOTE | 2018-10-05 15:24 | PN ---
Physical Exam: SUBJECTIVE: Patient seen and examined at bedside. States that he feels worse today, as his lower extremities are more swollen and he feels more SOB. denies fever, chills, cp, sob, n/v/d. Cr 3.5...3.9...4.1...4.4...4.2 today OBJECTIVE: Vital Signs Period Temp Pulse Resp BP Sys/Lopez Pulse Ox Last 24 Hr 97.5 F-98.3 F 20-73 18-78 124-147/61-80 93-98 GENERAL: The patient is pleasant. AOX3 NAD HEAD: NCAT EYES: PERRL, extraocular movements intact, sclera anicteric, conjunctiva clear. ENT: nares patent, oropharynx clear without exudates, MMM NECK: Trachea midline, supple. LUNGS: crackles at bases, mildly improving HEART: RRR, S1, S2 without murmur, rub or gallop. ABDOMEN: Soft, obese, NTND, normoactive bowel sounds, no guarding, no rebound EXTREMITIES: 2+ pt pulses, warm, well-perfused. 2+ pitting edema, mildly worsening today R>L NEUROLOGICAL: Cranial nerves II through XII grossly intact. sensation intact. able to lift lower extremities today. PSYCH: Normal mood, normal affect. SKIN: Warm, dry, normal turgor Laboratory Results - last 24 hr 10/04/18 10/04/18 10/05/18 16:55 23:22 05:38 WBC RBC Hgb Hct MCV MCH MCHC RDW Plt Count MPV Sodium Potassium Chloride Carbon Dioxide Anion Gap BUN Creatinine Creat Clearance w eGFR POC Glucometer 126 135 133 Random Glucose Calcium Phosphorus Magnesium Total Bilirubin AST ALT Alkaline Phosphatase Total Protein Albumin Urine Color Urine Appearance Urine pH Ur Specific [place] Urine Protein Urine Glucose (UA) Urine Ketones Urine Blood Urine Nitrite Urine Bilirubin Urine Urobilinogen Ur Leukocyte Esterase Urine WBC (Auto) Urine Casts (Auto) U Epithel Cells (Auto) Urine Bacteria (Auto) Ur Random Urea Nitrogn Urine Creatinine 10/05/18 10/05/18 10/05/18 07:15 07:15 12:12 WBC 4.3 RBC 3.03 L Hgb 8.3 L Hct 25.9 L MCV 85.4 MCH 27.3 MCHC 32.0 RDW 14.8 Plt Count 265 MPV 7.4 L Sodium 139 Potassium 4.3 Chloride 106 Carbon Dioxide 26 Anion Gap 7 L BUN 78 H Creatinine 4.2 H Creat Clearance w eGFR 14.70 POC Glucometer 132 Random Glucose 123 H Calcium 7.9 L Phosphorus 4.7 Magnesium 2.5 H Total Bilirubin 0.5 AST 27 ALT 66 H Alkaline Phosphatase 119 H Total Protein 5.8 L Albumin 2.2 L Urine Color Urine Appearance Urine pH Ur Specific [place] Urine Protein Urine Glucose (UA) Urine Ketones Urine Blood Urine Nitrite Urine Bilirubin Urine Urobilinogen Ur Leukocyte Esterase Urine WBC (Auto) Urine Casts (Auto) U Epithel Cells (Auto) Urine Bacteria (Auto) Ur Random Urea Nitrogn Urine Creatinine 10/05/18 10/05/18 10/05/18 13:30 13:30 13:30 WBC RBC Hgb Hct MCV MCH MCHC RDW Plt Count MPV Sodium Potassium Chloride Carbon Dioxide Anion Gap BUN Creatinine Creat Clearance w eGFR POC Glucometer Random Glucose Calcium Phosphorus Magnesium Total Bilirubin AST ALT Alkaline Phosphatase Total Protein Albumin Urine Color Yellow Urine Appearance Clear Urine pH 5.0 Ur Specific [place] 1.014 Urine Protein 3+ H Urine Glucose (UA) Negative Urine Ketones Negative Urine Blood Negative Urine Nitrite Negative Urine Bilirubin Negative Urine Urobilinogen 0.2 Ur Leukocyte Esterase Negative Urine WBC (Auto) 2 Urine Casts (Auto) 11 U Epithel Cells (Auto) 1.4 Urine Bacteria (Auto) 0.7 Ur Random Urea Nitrogn Cancelled Urine Creatinine Cancelled Active Medications Generic Name Dose Route Start Last Admin Trade Name Freq PRN Reason Stop Dose Admin Acetaminophen 650 mg 10/02/18 16:38 10/04/18 16:16 Tylenol - PO 650 mg Q6H PRN Administration PAIN LEVEL 1 - 3 Atorvastatin Calcium 40 mg 09/25/18 22:00 10/04/18 23:24 Lipitor - PO 40 mg HS SANGEETHA Administration Guaifenesin 10 ml 09/27/18 22:20 09/29/18 10:32 Robitussin Dm - PO 10 ml Q8H PRN Administration COUGH Heparin Sodium (Porcine) 5,000 unit 09/25/18 22:00 10/05/18 13:11 Heparin - SQ 5,000 unit TID SANGEETHA Administration Hydralazine HCl 25 mg 09/28/18 11:47 10/05/18 13:10 Apresoline - PO 25 mg TID SANGEETHA Administration Insulin Aspart 1 vial 09/25/18 22:00 10/05/18 12:13 Novolog Vial Sliding Scale - SQ Not Given ACHS [facility] Protocol Isosorbide Mononitrate 30 mg 09/28/18 18:30 10/05/18 10:21 Imdur - PO 30 mg DAILY SANGEETHA Administration Labetalol HCl 300 mg 09/28/18 22:00 10/05/18 10:21 Normodyne - PO 300 mg BID SANGEETHA Administration Nifedipine 90 mg 09/29/18 10:00 10/05/18 10:20 Procardia Xl - PO 90 mg DAILY SANGEETHA Administration Ranolazine 500 mg 09/25/18 22:00 10/05/18 10:21 Ranexa - PO 500 mg BID SANGEETHA Administration Tamsulosin HCl 0.4 mg 09/26/18 08:30 10/05/18 10:21 Flomax - PO 0.4 mg DAILY@0830 SANGEETHA Administration [facility] 10/2017 planned staged PCI of mid LAD [facility] 09/2017 (for inf ischemia on MPI) mild RCA, 80-90% LCx s/p FER, 70-80% mLAD. EDP 25->15 post nitro, EF 50% Echo 05/2018 mildly dilated LV, mild conc LVH, with discrete upper septal component, overal nl LV function EF 55%LA pressure uncertain, no RWMA,nl RV, mild MR, at least mild pulm HTN, mild MRRVSP at least 48 mmHg ECHO 09/28/18 Interpretation Summary The left ventricle is normal in size. Left ventricular systolic function is mild to moderately reduced. There is mild to moderate global hypokinesis of the left ventricle. Ejection Fraction = 40-45%. The right ventricular systolic function is normal. The left atrial size is normal. Right atrial size is normal. There is mild mitral regurgitation. There is mild to moderate tricuspid regurgitation. There is mild aortic sclerosis.; Trivial pericardial effusion not hemodynamically significant Large pleural effusion Previous study is not available for comparsion [id number] US/KIDNEY / RENAL US Renal insufficiency Renal ultrasound The right kidney measures 13.2 cm in sagittal length and the left kidney measured 13 cm. Both kidneys appear morphologically unremarkable. There is no gross evidence of hydronephrosis or renal stones, bilaterally. Visualized portion of the liver and spleen appear unremarkable. Note is made of bilateral pleural effusion. IMPRESSION: Both kidneys appear unremarkable without gross evidence of hydronephrosis or renal stones. Note is made of bilateral pleural effusion. ASSESSMENT/PLAN: 58 y/o M with PMH DM, HTN, HLD, CKD (baseline Cr ~2), CAD s/p 2 FER cardiac stents (10/2017), L4/L5 vertebral OM, PVD who presents to the ED c/o SOB over the past two weeks and found to be in volume overload suspected due to CHF #Acute on Chronic Systolic CHF exacerbation - initially improving but then Lasix was held due to worsening Cr. Today worsening SOB, abdominal distension, wt increasing. Lasix now resumed - got Lasix 80mg 10/05 - to re-asses daily for Lasix requirements. f/w gitig in outpt. -ECHO - EF 40-45%, mild to moderate global hypokinesis of LV, Large pleural effusion -per cardio has +stress in 09/2017 and had stent x2 placed at that time. will need to optimize his therapy at this time. any may require repeat stress once euvolemic -per cardio, c/w labetolol and uptitrate for BP ctl as needed as HTN is likely cause for cardiomyopathy causing reduced EF. c/w increased dose of 300 bid. Ideally should be on coreg for HFref but now more important to ctl HTN as likely culprit of hypokinesis seen on echo. -c/w hydral 25 TID and uptitrate as needed -c/w home dose imdur 30 and nifedipine 90 -10/05: wt increasing while off lasix, Cr peaked 4.4...4.2 today. will give lasix 80 x1 today, CXR/AXR pending -ASA, Plavix to be held for 7 days prior to Renal Bx (cleared with Cardiology) -cont to hold ARB and re-start once renal function improves -strict I/o, 2g Na control, daily wts -Cardio consult (Gitig) -trops 0.05..0.06...0.05 -PT eval #GABI on CKD III #GABI likely 2/2 Cardio-renal syndrome vs. renal hypoprofusion in setting of IV diuresis - FeUrea 19.5% c/w pre-renal. however AIN (lasix) vs. GN vs. Rhabdo ( elevated CK on admission) cannot be excluded. 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 -pt is non-oliguric -Cr increasing 2.8...3.3...3.5...3.9...4.1...4.4...4.2 today, Renal function cont to worsen despite holding lasix -will give lasix 80 x1 today, CXR/AXR pending -hold ARB with worsening GABI -urine eosinophils none -f/u serology/immunology w/u for nephrotic range proteinuria -RPR, Hepatitis panel negative -Renal U/S not suggestive of any acute disease or obstruction. -Nephrology evaluated and recommend Renal Doppler along with LE duplex- both studies negative for thrombosis. -ASA, Plavix to be held for 7 days prior to Renal Bx (cleared with Cardiology) #Normocytic Anemia, Chronic - likely 2/2 worsening CKD - further management as per Nephrology. Will send Anemia work-up; B12, iron, folate... to ensure no deficiencies. #CAD s/p FER most recently 09/2017, 10/2017 -Asprin/Plavix held from 10/06/18 for future Renal Bx. Continue Statin/ranexa #HTN urgency- resolved -c/w increased labetolol dose of 300 bid and uptitrate as needed -c/w hydral 25 TID and uptitrate as needed -c/w home dose imdur 30 and nifedipine 90 -hold ARB as w GABI #cerebral atherosclerosis - LICA plaque noted 2016 #PAD - hx L SFA stent, [employer]ORD[employer]ATOR of left 2016 -Asprin/Plavix held from 10/06/18 for future Renal Bx. Continue Statin #hx of L4L5 vertebral OM #HLD -c/w lipitor #DM -A1c 4.5 -ISS, BGM ACHS, hold oral agents #F/E/N no IVF at this time continue to follow lytes Na controlled/diabetic/ heart healthy diet #PPX DVT: Hep 5k SQ TID #Dispo m/s pt may benefit from outpt cardiac rehab Visit type - Emergency Visit Emergency Visit: Yes ED Registration Date: 09/25/18 Care time: The patient presented to the Emergency Department on the above date and was hospitalized for further evaluation of their emergent condition. - New Patient This patient is new to me today: Yes Date on this admission: 10/05/18 - Critical Care Critical Care patient: No
[2018-10-05 16:46] LABS: OVALOCYTE 1+; PLATELET ESTIMATE ADEQUATE; TARGET CELLS 1+
[2018-10-05] MEDS ORDERED: POLYETHYLENE GLYCOL 3350 119 GM BTL PO ONE (17:01)
--- NOTE | 2018-10-05 17:30 | PN ---
Progress Note (short form) - Note Progress Note: s: edema stable. no orthopnea, chest pain, palps, dizziness sob Current Medications Generic Name Dose Route Start Last Admin Trade Name Freq PRN Reason Stop Dose Admin Acetaminophen 650 mg 10/02/18 16:38 10/04/18 16:16 Tylenol - PO 650 mg Q6H PRN Administration PAIN LEVEL 1 - 3 Atorvastatin Calcium 40 mg 09/25/18 22:00 10/04/18 23:24 Lipitor - PO 40 mg HS SANGEETHA Administration Docusate Sodium 100 mg 10/05/18 22:00 Colace - PO TID SANGEETHA Guaifenesin 10 ml 09/27/18 22:20 09/29/18 10:32 Robitussin Dm - PO 10 ml Q8H PRN Administration COUGH Heparin Sodium (Porcine) 5,000 unit 09/25/18 22:00 10/05/18 13:11 Heparin - SQ 5,000 unit TID SANGEETHA Administration Hydralazine HCl 25 mg 09/28/18 11:47 10/05/18 13:10 Apresoline - PO 25 mg TID SANGEETHA Administration Insulin Aspart 1 vial 09/25/18 22:00 10/05/18 16:11 Novolog Vial Sliding Scale - SQ Not Given ACHS [facility] Protocol Isosorbide Mononitrate 30 mg 09/28/18 18:30 10/05/18 10:21 Imdur - PO 30 mg DAILY SANGEETHA Administration Labetalol HCl 300 mg 09/28/18 22:00 10/05/18 10:21 Normodyne - PO 300 mg BID SANGEETHA Administration Nifedipine 90 mg 09/29/18 10:00 10/05/18 10:20 Procardia Xl - PO 90 mg DAILY SANGEETHA Administration Ranolazine 500 mg 09/25/18 22:00 10/05/18 10:21 Ranexa - PO 500 mg BID SANGEETHA Administration Senna 2 tab 10/05/18 22:00 Senna - PO HS SANGEETHA Tamsulosin HCl 0.4 mg 09/26/18 08:30 10/05/18 10:21 Flomax - PO 0.4 mg DAILY@0830 SANGEETHA Administration Vital Signs Period Temp Pulse Resp BP Sys/Lopez Pulse Ox Last 24 Hr 97.5 F-98.3 F 20-73 18-78 124-148/61-86 93-98 Constitutional: Yes: Well Nourished, No Distress, Calm Eyes: Yes: Conjunctiva Clear Respiratory: Yes: Regular, CTA Bilaterally Gastrointestinal: Yes: Normal Bowel Sounds, Soft Cardiovascular: Yes: Regular Rate and Rhythm JVD: No Heart Sounds: Yes: S1, S2 Musculoskeletal: No: Back Pain Extremities: No: Cold Edema: Yes Edema: trace le edema bl Integumentary: No: Jaundice Neurological: Yes: Alert, Oriented Psychiatric: No: Agitated CBC, BMP 10/05/18 07:15 10/05/18 07:15 [facility] 10/2017 planned staged PCI of mid LAD [facility] 09/2017 (for inf ischemia on MPI) mild RCA, 80-90% LCx s/p FER, 70-80% mLAD. EDP 25->15 post nitro, EF 50% Echo 05/2018 mildly dilated LV, mild conc LVH, with discrete upper septal component, overal nl LV function EF 55%LA pressure uncertain, no RWMA,nl RV, mild MR, at least mild pulm HTN, mild MRRVSP at least 48 mmHg echo 09/2018 nl LV size, mild to mod reduced LV function EF 40-45%, RV nl, nl biatrial size, mild MR, mild to mod TR, mild ao sclerosis, trivial pericardial effusion, lg pleural effusion Assessment/Plan Acute systolic HF exacerbation - receiving lasix 40 mg IV BID, wt 282->278 lbs, Cr 2.4 on admission, now 2.8 - lg pleural effusion on echo - EF 40-45% on echo here, reportedly reduced function compared to prior in office - holding ARB for GABI - on labetolol at increased - 10/01-: cr continues to rise. will continue to hold lasix for now and monitor cr. - 10/05: cr remains elevated, plans for renal bx. GABI on CKD - per outpatient notes reportedly Cr 1.8 in 04/2018, had been planning for outpatient kidney biopsy-->now with worsening cr, planned for renal bx now, ok to hold asa/plavix as his pci was a year ago. No cardiac contraindications to planned renal biopsy. - renal u/s no obstruction - nephrology consulting CAD - s/p FER most recently 09/2017, 10/2017 - ok to hold asa/plavix for kidney bx as his pci was a year ago. HTN - on labetolol 200 mg BID as outpatient, increased to 300 mg BID here - on nifedipine, nitrates - hydralazine increased here for improved BP control, uptitrate as tolerated for improved BP control pulm HTN - mild on echo, likely due to diastolic dysfunction cerebral atherosclerosis - LICA plaque noted 2016 - on aspirin, plavix, statin PAD - hx L SFA stent, [employer]MENT [employer] of left 2016 - aspirin, statin, plavix HLD - cont statin DM - manage per primary
[2018-10-05 19:29] LABS: URINE RBC 8.8 /hpf (0-4)
--- NOTE | 2018-10-05 20:35 | CONSULT ---
- Consultation REQUESTING PROVIDER: Yun FLORES CONSULT REQUEST: We have been asked to surgically evaluate this patient for abdominal distention. PCP:Manuel Malcolm MD HISTORY OF PRESENT ILLNESS: CTSP " stat " who is a 58 y/o A/A/M admitted with fluid overload and GABI; he has responded well to tx. h/e was noted to have a distended abdomen w/o GI c/o's; he is eating and moving his bowels and passing flatus; dx. imaging was done. PMHx: arterial PVD/NIDDM/CAD/GABI PSHx: no abdominal surgery Home Medications Medication Instructions Recorded Glipizide [Glucotrol] 5 mg PO BID 04/08/17 Aspirin [Aspirin EC] 81 mg PO DAILY 09/25/18 Atorvastatin Ca [Lipitor] 40 mg PO HS 09/25/18 Clopidogrel Bisulfate [Plavix] 75 mg PO DAILY 09/25/18 Ergocalciferol (Vitamin D2) 50,000 unit PO WEEKLY 09/25/18 [Vitamin D2] Isosorbide Mononitrate [Isosorbide 30 mg PO DAILY 09/25/18 Mononitrate ER] Labetalol HCl [Normodyne -] 200 mg PO BID 09/25/18 Losartan Potassium 50 mg DAILY 09/25/18 Metolazone [Zaroxolyn -] 5 mg PO DAILY 09/25/18 Ranolazine [Ranexa] 500 mg PO BID 09/25/18 Tamsulosin HCl [Flomax] 0.4 mg PO DAILY 09/25/18 Nifedipine ER [Procardia XL -] 90 mg PO DAILY 09/29/18 Allergies Allergy/AdvReac Type Severity Reaction Status Date / Time No Known Allergies Allergy Verified 09/25/18 13:08 PHYSICAL EXAM: GENERAL: Awake, alert, and fully oriented, in no acute distress. HEAD: Normal with no signs of trauma. EYES, sclera anicteric, conjunctiva clear. NECK: Normal ROM, supple without lymphadenopathy, JVD, or masses. ABDOMEN: Soft, nontender, minimally distended and tympanitic, normoactive bowel sounds, no guarding, no rebound, no masses. No organomegaly. No scars; no hernias. MUSCULOSKELETAL: Normal ROM at all joints. No bony deformities or tenderness. No CVA tenderness. UPPER EXTREMITIES: 2+ pulses, warm, well-perfused. No cyanosis. Cap refill <2 seconds. No peripheral edema. LOWER EXTREMITIES: 2+ pulses, warm, well-perfused. No calf tenderness. 2+ peripheral edema. NEUROLOGICAL: Normal speech, gait not observed. PSYCH: Cooperative. Good eye contact. Appropriate mood and affect. SKIN: Warm, dry, normal turgor, no rashes or lesions noted. Vital Signs Temperature 98.1 F 10/05/18 17:02 Pulse Rate 70 10/05/18 17:02 Respiratory Rate 18 10/05/18 17:02 Blood Pressure 148/86 10/05/18 17:02 O2 Sat by Pulse Oximetry (%) 93 L 10/05/18 09:00 Lab Results WBC 4.3 K/mm3 (4.0-10.0) 10/05/18 07:15 RBC 3.03 M/mm3 (4.00-5.60) L 10/05/18 07:15 Hgb 8.3 GM/dL (11.7-16.9) L 10/05/18 07:15 Hct 25.9 % (35.4-49) L 10/05/18 07:15 MCV 85.4 fl (80-96) 10/05/18 07:15 MCHC 32.0 g/dl (32.0-35.9) 10/05/18 07:15 RDW 14.8 % (11.9-15.9) 10/05/18 07:15 Plt Count 265 K/MM3 (134-434) 10/05/18 07:15 Sodium 139 mmol/L (136-145) 10/05/18 07:15 Potassium 4.3 mmol/L (3.5-5.1) 10/05/18 07:15 Chloride 106 mmol/L (98-107) 10/05/18 07:15 Carbon Dioxide 26 mmol/L (21-32) 10/05/18 07:15 Anion Gap 7 MMOL/L (8-16) L 10/05/18 07:15 BUN 78 mg/dL (7-18) H 10/05/18 07:15 Creatinine 4.2 mg/dL (0.55-1.3) H 10/05/18 07:15 Random Glucose 123 mg/dL (74-106) H 10/05/18 07:15 Calcium 7.9 mg/dL (8.5-10.1) L 10/05/18 07:15 INR 1.36 (0.83-1.09) H 09/25/18 14:00 AXR's reviewed; limited study IMP:probable ileus due to underllying medical comorbid conditions; doubt mechanical obstruction; no evidence of an acute surgical abdomen. PLAN: Suggest NPO/IVF/F/uAXR's in the AM; will f/u. Reji Jose MD FACS
[2018-10-05] MEDS: SENNOSIDES 8.6MG TABLET (FP) PO SCH (22:45)
[2018-10-05] MEDS: DOCUSATE SODIUM 100 MG CAPSULE (FP) PO SCH (22:45)
[2018-10-05] MEDS: ATORVASTATIN CA 40 MG TABLET (FP) PO SCH (22:50)
[2018-10-06] MEDS: DOCUSATE SODIUM 100 MG CAPSULE (FP) PO SCH ×3 (05:27→21:51)
[2018-10-06] MEDS: hydrALAZINE HCL 25 MG TABLET (FP) PO SCH ×2 (05:45→13:38)
[2018-10-06] MEDS: HEPARIN NA (PORCINE) 5,000 UNITS/ML 1ML VIAL SQ SCH ×3 (05:45→21:51)
[2018-10-06] MEDS: INSULIN SLIDING SCALE (NOVOLOG) 1 VIAL SQ SCH ×4 (06:02→21:51)
[2018-10-06 07:47] LABS: HEMATOCRIT 25.6 % (35.4-49); HEMOGLOBIN 8.5 GM/dL (11.7-16.9); MCH 28.5 pg (25.7-33.7); MCHC 33.2 g/dl (32.0-35.9); MEAN CELL VOLUME 85.6 fl (80-96); MEAN PLT VOLUME 7.6 fl (7.5-11.1); PLATELET COUNT 262 K/MM3 (134-434); RBC 2.99 M/mm3 (4.00-5.60); RDW 14.9 % (11.9-15.9); WHITE BLOOD COUNT 4.5 K/mm3 (4.0-10.0)
--- NOTE | 2018-10-06 08:07 | PN ---
Progress Note (short form) - Note Progress Note: surgery Patient being followed for suspected ileus seen and examined at the bedside. Patient states his abdominal pain has subsided and he passed 2 normal BMs last night. Patient remains NPO and he denies any new symptoms including Co, SOB, N/ V fever or chills. Vital Signs Temp 97.5 F L 10/06/18 05:00 Pulse 68 10/06/18 05:00 Resp 18 10/06/18 05:00 BP 163/95 10/06/18 05:00 Pulse Ox 95 10/05/18 21:00 Intake & Output 10/05/18 10/05/18 10/06/18 11:59 23:59 11:59 Intake Total 450 260 Output Total 750 1300 Balance -750 -850 260 Weight 288 lb 285 lb 7 oz Intake: IV 260 SALINE LOCK 260 Oral 450 0 Output: Urine 750 1300 Void 750 1300 Other: Voiding Method Urinal Urinal Bowel Movement Yes: small Weight Measurement Method Chair Scale Standing Scale PE: A&Ox3, NAD unlabored resp on RA ABD: obese and distended, Soft, NT, to palpation throughout. Problem List - Problems (1) Ileus, unspecified Assessment/Plan: Patient with likely ileus appears to be resolving. 1) Continue NPO 2) F/u Abd x-ray 3) Encourage OOB as tolerated 4) Surgery to follow Code(s): K56.7 - ILEUS, UNSPECIFIED
[2018-10-06 09:16] LABS: ANION GAP 6 MMOL/L (8-16); BLOOD UREA NITROGEN 71 mg/dL (7-18); CALCIUM 8.2 mg/dL (8.5-10.1); CHLORIDE 106 mmol/L (98-107); CO2 27 mmol/L (21-32); CREATININE 3.8 mg/dL (0.55-1.3); GLUCOSE,RANDOM 98 mg/dL (74-106); MAGNESIUM 2.3 mg/dL (1.8-2.4); PHOSPHOROUS 4.2 mg/dL (2.5-4.9); POTASSIUM 4.2 mmol/L (3.5-5.1); SODIUM 139 mmol/L (136-145)
[2018-10-06] MEDS: NIFEdipine E.R. 90 MG TABLET (FP) PO SCH (10:53)
[2018-10-06] MEDS: TAMSULOSIN HCL 0.4 MG CAP PO SCH (10:54)
[2018-10-06] MEDS: ISOSORBIDE MONONITRATE 30 MG TAB.SR.24H (FP) PO SCH (10:54)
[2018-10-06] MEDS: RANOLAZINE E.R. 500 MG TABLET (FP) PO SCH ×2 (10:54→21:50)
[2018-10-06] MEDS: LABETALOL HCL 100 MG TABLET (FP) PO SCH ×2 (10:55→21:50)
--- NOTE | 2018-10-06 12:15 | PN ---
Physical Exam: SUBJECTIVE: Patient seen and examined at bedside. States that he feels better today and less SOB. denies fever, chills, cp, sob, n/v/d. XR yesterday concern for illeus vs small SBO? Patient states his abdominal pain has subsided and he passed 2 normal BMs last night. Patient remains NPO. Cr 3.5...3.9...4.1...4.4...4.2...3.8 today OBJECTIVE: Vital Signs Period Temp Pulse Resp BP Sys/Lopez Pulse Ox Last 24 Hr 97.5 F-98.5 F 68-77 18-18 148-170/86-95 95 GENERAL: The patient is pleasant. AOX3 NAD HEAD: NCAT EYES: PERRL, extraocular movements intact, sclera anicteric, conjunctiva clear. ENT: nares patent, oropharynx clear without exudates, MMM NECK: Trachea midline, supple. LUNGS: crackles at bases, mildly improving HEART: RRR, S1, S2 without murmur, rub or gallop. ABDOMEN: Soft, obese, NTND, normoactive bowel sounds, no guarding, no rebound EXTREMITIES: 2+ pt pulses, warm, well-perfused. 2+ pitting edema, mildly improving today R>L NEUROLOGICAL: Cranial nerves II through XII grossly intact. sensation intact. able to lift lower extremities today. PSYCH: Normal mood, normal affect. SKIN: Warm, dry, normal turgor Laboratory Results - last 24 hr 10/02/18 10/05/18 10/05/18 10:30 07:15 12:12 WBC RBC Hgb Hct MCV MCH MCHC RDW Plt Count MPV Total Counted 100 Neutrophils % (Manual) 68.0 Lymphocytes % (Manual) 26.0 Monocytes % (Manual) 4 Platelet Estimate Adequate Poikilocytosis 2+ Target Cells 1+ Ovalocytes 1+ [place] Cells 1+ Acanthocytes (Spur) 1+ Sodium Potassium Chloride Carbon Dioxide Anion Gap BUN Creatinine Creat Clearance w eGFR POC Glucometer 132 Random Glucose Calcium Phosphorus Magnesium Total Protein (PEP) 5.6 L Albumin (PEP) 2.4 L Globulin 3.2 Albumin/Globulin Ratio 0.8 Beta Globulins 0.9 Vitamin B12 Serum Folate Urine Color Urine Appearance Urine pH Ur Specific [place] Urine Protein Urine Glucose (UA) Urine Ketones Urine Blood Urine Nitrite Urine Bilirubin Urine Urobilinogen Ur Leukocyte Esterase Urine WBC (Auto) Urine RBC (Auto) Urine Casts (Auto) U Epithel Cells (Auto) Urine Bacteria (Auto) U Random Total Protein Ur Random Urea Nitrogn Urine Creatinine ZELDA M-Jossue Not observed 10/05/18 10/05/18 10/05/18 13:30 13:30 13:30 WBC RBC Hgb Hct MCV MCH MCHC RDW Plt Count MPV Total Counted Neutrophils % (Manual) Lymphocytes % (Manual) Monocytes % (Manual) Platelet Estimate Poikilocytosis Target Cells Ovalocytes [place] Cells Acanthocytes (Spur) Sodium Potassium Chloride Carbon Dioxide Anion Gap BUN Creatinine Creat Clearance w eGFR POC Glucometer Random Glucose Calcium Phosphorus Magnesium Total Protein (PEP) Albumin (PEP) Globulin Albumin/Globulin Ratio Beta Globulins Vitamin B12 Serum Folate Urine Color Yellow Urine Appearance Clear Urine pH 5.0 Ur Specific [place] 1.014 Urine Protein 3+ H Urine Glucose (UA) Negative Urine Ketones Negative Urine Blood Negative Urine Nitrite Negative Urine Bilirubin Negative Urine Urobilinogen 0.2 Ur Leukocyte Esterase Negative Urine WBC (Auto) 2 Urine RBC (Auto) 8.8 Urine Casts (Auto) 11 U Epithel Cells (Auto) 1.4 Urine Bacteria (Auto) 0.7 U Random Total Protein Ur Random Urea Nitrogn Cancelled Urine Creatinine Cancelled ZELDA M-Jossue 10/05/18 10/05/18 10/05/18 13:30 16:11 22:42 WBC RBC Hgb Hct MCV MCH MCHC RDW Plt Count MPV Total Counted Neutrophils % (Manual) Lymphocytes % (Manual) Monocytes % (Manual) Platelet Estimate Poikilocytosis Target Cells Ovalocytes [place] Cells Acanthocytes (Spur) Sodium Potassium Chloride Carbon Dioxide Anion Gap BUN Creatinine Creat Clearance w eGFR POC Glucometer 121 121 Random Glucose Calcium Phosphorus Magnesium Total Protein (PEP) Albumin (PEP) Globulin Albumin/Globulin Ratio Beta Globulins Vitamin B12 Serum Folate Urine Color Urine Appearance Urine pH Ur Specific [place] Urine Protein Urine Glucose (UA) Urine Ketones Urine Blood Urine Nitrite Urine Bilirubin Urine Urobilinogen Ur Leukocyte Esterase Urine WBC (Auto) Urine RBC (Auto) Urine Casts (Auto) U Epithel Cells (Auto) Urine Bacteria (Auto) U Random Total Protein 232.1 H Ur Random Urea Nitrogn 473 Urine Creatinine 89.0 ZELDA M-Jossue 04/08/2510/06/18 10/06/18 05:50 06:30 06:30 WBC 4.5 RBC 2.99 L Hgb 8.5 L Hct 25.6 L MCV 85.6 MCH 28.5 MCHC 33.2 RDW 14.9 Plt Count 262 MPV 7.6 Total Counted Neutrophils % (Manual) Lymphocytes % (Manual) Monocytes % (Manual) Platelet Estimate Poikilocytosis Target Cells Ovalocytes [place] Cells Acanthocytes (Spur) Sodium 139 Potassium 4.2 Chloride 106 Carbon Dioxide 27 Anion Gap 6 L BUN 71 H Creatinine 3.8 H Creat Clearance w eGFR 16.50 POC Glucometer 102 Random Glucose 98 Calcium 8.2 L Phosphorus 4.2 Magnesium 2.3 Total Protein (PEP) Albumin (PEP) Globulin Albumin/Globulin Ratio Beta Globulins Vitamin B12 842 Serum Folate 17 Urine Color Urine Appearance Urine pH Ur Specific [place] Urine Protein Urine Glucose (UA) Urine Ketones Urine Blood Urine Nitrite Urine Bilirubin Urine Urobilinogen Ur Leukocyte Esterase Urine WBC (Auto) Urine RBC (Auto) Urine Casts (Auto) U Epithel Cells (Auto) Urine Bacteria (Auto) U Random Total Protein Ur Random Urea Nitrogn Urine Creatinine ZELDA M-Jossue 10/06/18 11:06 WBC RBC Hgb Hct MCV MCH MCHC RDW Plt Count MPV Total Counted Neutrophils % (Manual) Lymphocytes % (Manual) Monocytes % (Manual) Platelet Estimate Poikilocytosis Target Cells Ovalocytes [place] Cells Acanthocytes (Sp[place]) Sodium Potassium Chloride Carbon Dioxide Anion Gap BUN Creatinine Creat Clearance w eGFR POC Glucometer 101 Random Glucose Calcium Phosphorus Magnesium Total Protein (PEP) Albumin (PEP) Globulin Albumin/Globulin Ratio Beta Globulins Vitamin B12 Serum Folate Urine Color Urine Appearance Urine pH Ur Specific [place] Urine Protein Urine Glucose (UA) Urine Ketones Urine Blood Urine Nitrite Urine Bilirubin Urine Urobilinogen Ur Leukocyte Esterase Urine WBC (Auto) Urine RBC (Auto) Urine Casts (Auto) U Epithel Cells (Auto) Urine Bacteria (Auto) U Random Total Protein Ur Random Urea Nitrogn Urine Creatinine ZELDA M-Jossue Active Medications Generic Name Dose Route Start Last Admin Trade Name Freq PRN Reason Stop Dose Admin Acetaminophen 650 mg 10/02/18 16:38 10/04/18 16:16 Tylenol - PO 650 mg Q6H PRN Administration PAIN LEVEL 1 - 3 Atorvastatin Calcium 40 mg 09/25/18 22:00 10/05/18 22:50 Lipitor - PO 40 mg HS [facility] Administration Docusate Sodium 100 mg 10/05/18 22:00 10/06/18 05:27 Colace - PO Not Given TID SANGEETHA Guaifenesin 10 ml 09/27/18 22:20 09/29/18 10:32 Robitussin Dm - PO 10 ml Q8H PRN Administration COUGH Heparin Sodium (Porcine) 5,000 unit 09/25/18 22:00 10/06/18 05:45 Heparin - SQ 5,000 unit TID SANGEETHA Administration Hydralazine HCl 25 mg 09/28/18 11:47 10/06/18 05:45 Apresoline - PO 25 mg TID SANGEETHA Administration Insulin Aspart 1 vial 09/25/18 22:00 10/06/18 11:07 Novolog Vial Sliding Scale - SQ Not Given ACHS [facility] Protocol Isosorbide Mononitrate 30 mg 09/28/18 18:30 10/06/18 10:54 Imdur - PO 30 mg DAILY SANGEETHA Administration Labetalol HCl 300 mg 09/28/18 22:00 10/06/18 10:55 Normodyne - PO 300 mg BID SANGEETHA Administration Nifedipine 90 mg 09/29/18 10:00 10/06/18 10:53 Procardia Xl - PO 90 mg DAILY SANGEETHA Administration Ranolazine 500 mg 09/25/18 22:00 10/06/18 10:54 Ranexa - PO 500 mg BID SANGEETHA Administration Senna 2 tab 10/05/18 22:00 10/05/18 22:45 Senna - PO Not Given HS [facility] Tamsulosin HCl 0.4 mg 09/26/18 08:30 10/06/18 10:54 Flomax - PO 0.4 mg DAILY@0830 SANGEETHA Administration [facility] 10/2017 planned staged PCI of mid LAD [facility] 09/2017 (for inf ischemia on MPI) mild RCA, 80-90% LCx s/p FER, 70-80% mLAD. EDP 25->15 post nitro, EF 50% Echo 05/2018 mildly dilated LV, mild conc LVH, with discrete upper septal component, overal nl LV function EF 55%LA pressure uncertain, no RWMA,nl RV, mild MR, at least mild pulm HTN, mild MRRVSP at least 48 mmHg ECHO 09/28/18 Interpretation Summary The left ventricle is normal in size. Left ventricular systolic function is mild to moderately reduced. There is mild to moderate global hypokinesis of the left ventricle. Ejection Fraction = 40-45%. The right ventricular systolic function is normal. The left atrial size is normal. Right atrial size is normal. There is mild mitral regurgitation. There is mild to moderate tricuspid regurgitation. There is mild aortic sclerosis.; Trivial pericardial effusion not hemodynamically significant Large pleural effusion Previous study is not available for comparsion [id number] US/KIDNEY / RENAL US Renal insufficiency Renal ultrasound The right kidney measures 13.2 cm in sagittal length and the left kidney measured 13 cm. Both kidneys appear morphologically unremarkable. There is no gross evidence of hydronephrosis or renal stones, bilaterally. Visualized portion of the liver and spleen appear unremarkable. Note is made of bilateral pleural effusion. IMPRESSION: Both kidneys appear unremarkable without gross evidence of hydronephrosis or renal stones. Note is made of bilateral pleural effusion. ASSESSMENT/PLAN: 58 y/o M with PMH DM, HTN, HLD, CKD (baseline Cr ~2), CAD s/p 2 FER cardiac stents (10/2017), L4/L5 vertebral OM, PVD who presents to the ED c/o SOB over the past two weeks and found to be in volume overload suspected due to CHF #Acute on Chronic Systolic CHF exacerbation - initially improving but then Lasix was held due to worsening Cr. Now improving SOB, wt mildly decreasing w/ resumption of Lasix 80mg on 10/05. will give Lasix on a prn basis and closely monitor Cr . f/w gitig in outpt. -ECHO - EF 40-45%, mild to moderate global hypokinesis of LV, Large pleural effusion -per cardio has +stress in 09/2017 and had stent x2 placed at that time. will need to optimize his therapy at this time. any may require repeat stress once euvolemic -per cardio, c/w labetolol and uptitrate for BP ctl as needed as HTN is likely cause for cardiomyopathy causing reduced EF. c/w increased dose of 300 bid. Ideally should be on coreg for HFref but now more important to ctl HTN as likely culprit of hypokinesis seen on echo. -c/w hydral 25 TID and uptitrate as needed -c/w home dose imdur 30 and nifedipine 90 -10/06: mildly decreasing w/ resumption of Lasix 80mg on 10/05, Cr downtrending 4.4...4.2..3.8 today. will give lasix 80 x1 today. -CXR 10/05 showed worsening congestion -ASA, Plavix to be held for 7 days prior to Renal Bx (cleared with Cardiology) -cont to hold ARB and re-start once renal function improves -strict I/o, 2g Na control, daily wts -Cardio consult (Ana) -trops 0.05..0.06...0.05 -PT eval #GABI on CKD III #GABI likely 2/2 Cardio-renal syndrome vs. renal hypoprofusion in setting of IV diuresis - FeUrea 19.5% c/w pre-renal. however AIN (lasix) vs. GN vs. Rhabdo ( elevated CK on admission) cannot be excluded. 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 -pt is non-oliguric -Cr increasing 2.8...3.3...3.5...3.9...4.1...4.4...4.2..3.8 today -will give lasix 80 x1 today -hold ARB with worsening GABI -urine eosinophils none -f/u serology/immunology w/u for nephrotic range proteinuria -RPR, Hepatitis panel negative -Renal U/S not suggestive of any acute disease or obstruction. -Nephrology evaluated and recommend Renal Doppler along with LE duplex- both studies negative for thrombosis. -ASA, Plavix to be held for 7 days prior to Renal Bx (cleared with Cardiology) #Ileus - resolving. pt was noted w/ abd discomfort and distension yesterday. abd XR showed ileus vs small SBO/partial SBO. surgery consulted. pt made NPO, rpt XR shows no gross obstruction. pt sxs improving, had 2 nl BMs overnight -will advance to clears and monitor #Normocytic Anemia, Chronic - likely 2/2 worsening CKD - further management as per Nephrology. f/u iron B12, folate nl #CAD s/p FER most recently 09/2017, 10/2017 -Asprin/Plavix held from 10/06/18 for future Renal Bx. Continue Statin/ranexa #HTN urgency- resolved -c/w increased labetolol dose of 300 bid and uptitrate as needed -c/w hydral 25 TID and uptitrate as needed -c/w home dose imdur 30 and nifedipine 90 -hold ARB as w GABI #cerebral atherosclerosis - LICA plaque noted 2016 #PAD - hx L SFA stent, [employer] of left 2016 -Asprin/Plavix held from 10/06/18 for future Renal Bx. Continue Statin #hx of L4L5 vertebral OM #HLD -c/w lipitor #DM -A1c 4.5 -ISS, BGM ACHS, hold oral agents #F/E/N no IVF at this time continue to follow lytes clears and advance as tolerated #PPX DVT: Hep 5k SQ TID #Dispo m/s pt may benefit from outpt cardiac rehab Visit type - Emergency Visit Emergency Visit: Yes ED Registration Date: 09/25/18 Care time: The patient presented to the Emergency Department on the above date and was hospitalized for further evaluation of their emergent condition. - New Patient This patient is new to me today: Yes Date on this admission: 10/06/18 - Critical Care Critical Care patient: No
[2018-10-06] MEDS ORDERED: FUROSEMIDE 40 MG/4 ML INJECTABLE VIAL IVPUSH ONE (12:17)
--- NOTE | 2018-10-06 13:19 | PN ---
Teaching Attending Note Name of Resident: Navdeep Villalpando ATTENDING PHYSICIAN STATEMENT I saw and evaluated the patient. I reviewed the resident's note and discussed the case with the resident. I agree with the resident's findings and plan as documented. SUBJECTIVE:asking for food. states breathing is good today and able to lay flat. denies CP, SOB< fever, chills, cough, abdominal pain. has 2 BM yesterday Last Vital Signs Temp Pulse Resp BP Pulse Ox 98.3 F 76 18 170/92 95 10/06/18 09:00 10/06/18 09:00 10/06/18 09:00 10/06/18 09:00 10/05/18 21:00 Intake & Output 10/03/18 10/04/18 10/05/18 10/06/18 23:59 23:59 23:59 23:59 Intake Total 640 750 450 260 Output Total 2050 700 Balance 640 750 -1600 -440 Weight 280 lb 14.4 oz 287 lb 4 oz 288 lb 285 lb 7 oz General NAD Lungs CTA B/L no wheezing/rales/rhonchi ABodmen soft +distended, NT. hypoactive BS Extremities 1+ pitting edema ASSESSMENT AND PLAN: 58yo M with PMH DM, HTN, CAD s/p 2 stents, L4/L5 vertebral OM, PVD presented to the ER with progressively worsening SOB and cough and found to be in volume overload suspected due to CHF 1. New onset systolic CHF-cliniaclly improved however has signs of volume overload. will give lasix 80mg IVP. will need to be on lasix on discharge. cont optimization with medications. cardio on board. strict I&O, daily weights 2. Acute on CKD-likely cardiorenal as all other testing is negative. Cr peaked at 4.4 and now slowly trending down. will need renal bx off asa/plavix (held starting today 10/06) spoke with nephro who will determine to be done here vs private road manager. 3. Abdominal distention- AXR done showing ileus vs early SBO. clinically stable with BM. AXR reviewed and showed some improvement. will trial on clears. if tolerates will slowly advance diet. surgery on board 4. HTN urgency-overall improve but above goal. will cont to titrate medications to optimize BP 5. hypokalemia- kcl po 6. CAD s/p stents- cont ranexa/statin. asa and plavix on hold pending bx 7. DM- hold oral agents. iss an bgm 8. hx of L4L5 vertebral OM 9. DVT ppx- hep sq 10/ d/c planning in next 24-48H as long as renal function remains stable
--- NOTE | 2018-10-06 15:04 | PN ---
Progress Note (short form) - Note Progress Note: Renal follow up for GABI Pt seen and examined at the bedside no acute complaints. SOB is improved today. Made more urine with IV lasix. no CP, fever, chills, N/V Vital Signs Temperature 97.4 F L 10/06/18 14:22 Pulse Rate 75 10/06/18 14:22 Respiratory Rate 18 10/06/18 14:22 Blood Pressure 171/78 H 10/06/18 14:22 O2 Sat by Pulse Oximetry (%) 96 10/06/18 09:00 NAD on room air CTA, no rales or wheeze soft NT/ND no bladder distension ++ edema in LE no cyanosis or clubbing CBC, BMP 10/06/18 06:30 10/06/18 06:30 Current Medications Acetaminophen (Tylenol -) 650 mg PO Q6H PRN PRN Reason: PAIN LEVEL 1 - 3 Last Admin: 10/04/18 16:16 Dose: 650 mg Atorvastatin Calcium (Lipitor -) 40 mg PO HS COUNTS INCLUDE 234 BEDS AT THE [facility] Last Admin: 10/05/18 22:50 Dose: 40 mg Docusate Sodium (Colace -) 100 mg PO TID COUNTS INCLUDE 234 BEDS AT THE [facility] Last Admin: 10/06/18 13:39 Dose: Not Given Guaifenesin (Robitussin Dm -) 10 ml PO Q8H PRN PRN Reason: COUGH Last Admin: 09/29/18 10:32 Dose: 10 ml Heparin Sodium (Porcine) (Heparin -) 5,000 unit SQ TID COUNTS INCLUDE 234 BEDS AT THE [facility] Last Admin: 10/06/18 13:39 Dose: 5,000 unit Hydralazine HCl (Apresoline -) 25 mg PO TID COUNTS INCLUDE 234 BEDS AT THE [facility] Last Admin: 10/06/18 13:38 Dose: 25 mg Insulin Aspart (Novolog Vial Sliding Scale -) 1 vial SQ [facility] COUNTS INCLUDE 234 BEDS AT THE [facility]; Protocol Last Admin: 10/06/18 11:07 Dose: Not Given Isosorbide Mononitrate (Imdur -) 30 mg PO DAILY COUNTS INCLUDE 234 BEDS AT THE [facility] Last Admin: 10/06/18 10:54 Dose: 30 mg Labetalol HCl (Normodyne -) 300 mg PO BID COUNTS INCLUDE 234 BEDS AT THE [facility] Last Admin: 10/06/18 10:55 Dose: 300 mg Nifedipine (Procardia Xl -) 90 mg PO DAILY COUNTS INCLUDE 234 BEDS AT THE [facility] Last Admin: 10/06/18 10:53 Dose: 90 mg Ranolazine (Ranexa -) 500 mg PO BID COUNTS INCLUDE 234 BEDS AT THE [facility] Last Admin: 10/06/18 10:54 Dose: 500 mg Senna (Senna -) 2 tab PO HS COUNTS INCLUDE 234 BEDS AT THE [facility] Last Admin: 10/05/18 22:45 Dose: Not Given Tamsulosin HCl (Flomax -) 0.4 mg PO DAILY@0830 COUNTS INCLUDE 234 BEDS AT THE [facility] Last Admin: 10/06/18 10:54 Dose: 0.4 mg 58 year old gentleman with hx of CAD s/p PCI and stenting, hypertension, DM, Hyperlipidemia, CKD (baseline Cr ~2) who presented with SOB and admitted for CHF exacerbation with GABI. #GABI with unclear etiology #CKD with proteinuria #CHF exacerbation #CAD #DM #Hyeprtension #Hyperlipidemia #Anemia Renal function with mild improvement Clinically improved s/p Lasix. To get additional lasix today Imaging studies w/o any definite pathology, serologic work up negative thus far , ANCA are still pending hold ASA and plavix with plan for renal biopsy possibly next week will need to be off ASA/Plavix for 7 days dose all meds for CrCl < 20 no acute need for IMPROVEMENT SPEC Thank you Mansoor Quiroz DO
[2018-10-06 16:15] LABS: ATYPICAL pANCA <1:20 titer (Neg:<1:20); C-ANCA <1:20 titer (Neg:<1:20); P-ANCA <1:20 titer (Neg:<1:20)
--- NOTE | 2018-10-06 16:54 | PN ---
Progress Note (short form) - Note Progress Note: s: edema stable. no orthopnea, chest pain, palps, dizziness sob Current Medications Generic Name Dose Route Start Last Admin Trade Name Freq PRN Reason Stop Dose Admin Acetaminophen 650 mg 10/02/18 16:38 10/04/18 16:16 Tylenol - PO 650 mg Q6H PRN Administration PAIN LEVEL 1 - 3 Atorvastatin Calcium 40 mg 09/25/18 22:00 10/05/18 22:50 Lipitor - PO 40 mg HS [facility] Administration Docusate Sodium 100 mg 10/05/18 22:00 10/06/18 13:39 Colace - PO Not Given TID SANGEETHA Furosemide 80 mg 10/07/18 10:00 Lasix - PO DAILY [facility] Guaifenesin 10 ml 09/27/18 22:20 09/29/18 10:32 Robitussin Dm - PO 10 ml Q8H PRN Administration COUGH Heparin Sodium (Porcine) 5,000 unit 09/25/18 22:00 10/06/18 13:39 Heparin - SQ 5,000 unit TID [facility] Administration Hydralazine HCl 50 mg 10/06/18 16:52 Apresoline - PO TID SANGEETHA Insulin Aspart 1 vial 09/25/18 22:00 10/06/18 16:13 Novolog Vial Sliding Scale - SQ Not Given ACHS [facility] Protocol Isosorbide Mononitrate 30 mg 09/28/18 18:30 10/06/18 10:54 Imdur - PO 30 mg DAILY SANGEETHA Administration Labetalol HCl 300 mg 09/28/18 22:00 10/06/18 10:55 Normodyne - PO 300 mg BID [facility] Administration Nifedipine 90 mg 09/29/18 10:00 10/06/18 10:53 Procardia Xl - PO 90 mg DAILY SANGEETHA Administration Ranolazine 500 mg 09/25/18 22:00 10/06/18 10:54 Ranexa - PO 500 mg BID [facility] Administration Senna 2 tab 10/05/18 22:00 10/05/18 22:45 Senna - PO Not Given HS SANGEETHA Tamsulosin HCl 0.4 mg 09/26/18 08:30 10/06/18 10:54 Flomax - PO 0.4 mg DAILY@0830 SANGEETHA Administration Vital Signs Period Temp Pulse Resp BP Sys/Lopez Pulse Ox Last 24 Hr 97.4 F-98.5 F 68-77 18-18 148-171/78-95 95-96 Constitutional: Yes: Well Nourished, No Distress, Calm Eyes: Yes: Conjunctiva Clear Respiratory: Yes: Regular, CTA Bilaterally Gastrointestinal: Yes: Normal Bowel Sounds, Soft Cardiovascular: Yes: Regular Rate and Rhythm JVD: No Heart Sounds: Yes: S1, S2 Musculoskeletal: No: Back Pain Extremities: No: Cold Edema: Yes Edema: trace le edema bl Integumentary: No: Jaundice Neurological: Yes: Alert, Oriented Psychiatric: No: Agitated CBC, BMP 10/06/18 06:30 10/06/18 06:30 [facility] 10/2017 planned staged PCI of mid LAD [facility] 09/2017 (for inf ischemia on MPI) mild RCA, 80-90% LCx s/p FER, 70-80% mLAD. EDP 25->15 post nitro, EF 50% Echo 05/2018 mildly dilated LV, mild conc LVH, with discrete upper septal component, overal nl LV function EF 55%LA pressure uncertain, no RWMA,nl RV, mild MR, at least mild pulm HTN, mild MRRVSP at least 48 mmHg echo 09/2018 nl LV size, mild to mod reduced LV function EF 40-45%, RV nl, nl biatrial size, mild MR, mild to mod TR, mild ao sclerosis, trivial pericardial effusion, lg pleural effusion Assessment/Plan Acute systolic HF exacerbation - receiving lasix 40 mg IV BID, wt 282->278 lbs, Cr 2.4 on admission, now 2.8 - lg pleural effusion on echo - EF 40-45% on echo here, reportedly reduced function compared to prior in office - holding ARB for GABI - on labetolol at increased - 10/01-: cr continues to rise. will continue to hold lasix for now and monitor cr. - 10/05: cr remains elevated, plans for renal bx. -10/06: cr improving, will start lasix 80 mg po qd GABI on CKD - per outpatient notes reportedly Cr 1.8 in 04/2018, had been planning for outpatient kidney biopsy-->now with worsening cr, planned for renal bx now, ok to hold asa/plavix as his pci was a year ago. No cardiac contraindications to planned renal biopsy. - renal u/s no obstruction - nephrology consulting CAD - s/p FER most recently 09/2017, 10/2017 - ok to hold asa/plavix for kidney bx as his pci was a year ago. HTN - on labetolol 200 mg BID as outpatient, increased to 300 mg BID here - on nifedipine, nitrates - hydralazine increased here for improved BP control, uptitrate as tolerated for improved BP control pulm HTN - mild on echo, likely due to diastolic dysfunction cerebral atherosclerosis - LICA plaque noted 2016 - on aspirin, plavix, statin PAD - hx L SFA stent, [employer] of left 2017 - aspirin, statin, plavix HLD - cont statin DM - manage per primary
[2018-10-06] MEDS ORDERED: guaiFENesin/D-METHORPHAN HB 10 ML UNIT-DOSE CUPS PO PRN (18:49)
[2018-10-06] MEDS ORDERED: INSULIN (NOVOLOG) ASPART 100 UNITS/ML 10ML VIAL ONE (20:31)
[2018-10-06] MEDS: ACETAMINOPHEN 325 MG TABLET (FP) PO PRN (21:49)
[2018-10-06] MEDS: hydrALAZINE HCL 50 MG TABLET (FP) PO SCH (21:50)
[2018-10-06] MEDS: SENNOSIDES 8.6MG TABLET (FP) PO SCH (21:51)
[2018-10-06] MEDS ORDERED: ATORVASTATIN CA 40 MG TABLET (FP) PO SCH (22:00)
[2018-10-07] MEDS ORDERED: PT OWN MED DRAWER 7, Y5N ONE (02:35)
[2018-10-07 04:15] LABS: SERUM IRON SATURATION 24 % (15-55); TOTAL IRON BINDING CAPACITY 233 ug/dL (250-450); UIBC 177 ug/dL (111-343)
[2018-10-07] MEDS: hydrALAZINE HCL 50 MG TABLET (FP) PO SCH ×2 (06:41→15:06)
[2018-10-07] MEDS: INSULIN SLIDING SCALE (NOVOLOG) 1 VIAL SQ SCH ×3 (06:41→17:14)
[2018-10-07] MEDS: HEPARIN NA (PORCINE) 5,000 UNITS/ML 1ML VIAL SQ SCH ×2 (06:41→15:05)
[2018-10-07] MEDS: DOCUSATE SODIUM 100 MG CAPSULE (FP) PO SCH ×2 (06:41→15:04)
--- NOTE | 2018-10-07 08:11 | PN ---
Progress Note (short form) - Note Progress Note: surgery Patient being followed for suspected ileus seen and examined at the bedside. Patient denies abdominal pain and he continues to pass gas and have BMs. He tolerated his clears yesterday and he denies any new symptoms including Cp, SOB , N/V fever or chills. Vital Signs Temp 97.8 F 10/07/18 05:00 Pulse 70 10/07/18 05:00 Resp 18 10/07/18 05:00 BP 112/64 10/07/18 05:00 Pulse Ox 96 10/06/18 21:00 Intake & Output 10/06/18 10/06/18 10/07/18 11:59 23:59 11:59 Intake Total 260 200 Output Total 700 1300 200 Balance -440 -1100 -200 Weight 285 lb 7 oz 281 lb 12.8 oz Intake: IV 260 SALINE LOCK 260 Oral 0 200 Output: Urine 700 1300 200 Void 700 1300 200 Other: Voiding Method Urinal Urinal Bowel Movement Yes No # Bowel Movements 1 Weight Measurement Method Standing Scale Standing Scale CBC, BMP 10/06/18 06:30 PE: A&Ox3, NAD, patient resting comfortably unlabored resp on RA ABD: obese and distended, Soft, NT, to palpation throughout. Problem List - Problems (1) Ileus, unspecified Assessment/Plan: Patient with likely ileus appears to be resolving. 1) Start regular today 2) Encourage OOB as tolerated 3) reconsult surgery PRN Evaluation and plan discussed with Dr Jose Code(s): K56.7 - ILEUS, UNSPECIFIED
[2018-10-07 08:19] LABS: ANION GAP 4 MMOL/L (8-16); BLOOD UREA NITROGEN 67 mg/dL (7-18); CALCIUM 8.1 mg/dL (8.5-10.1); CHLORIDE 106 mmol/L (98-107); CO2 29 mmol/L (21-32); CREATININE 3.5 mg/dL (0.55-1.3); GLUCOSE,RANDOM 115 mg/dL (74-106); MAGNESIUM 2.4 mg/dL (1.8-2.4); PHOSPHOROUS 4.2 mg/dL (2.5-4.9); POTASSIUM 3.9 mmol/L (3.5-5.1); SODIUM 139 mmol/L (136-145)
--- NOTE | 2018-10-07 08:29 | DS ---
Physical Exam: SUBJECTIVE: Patient seen and examined at bedside. States that he feels better today and less SOB. denies fever, chills, cp, sob, n/v/d. Patient states his abdominal pain has subsided, +flatus, + BMs, tolerating PO Cr 3.5...3.9...4.1...4.4...4.2...3.8...3.5 today OBJECTIVE: Vital Signs Period Temp Pulse Resp BP Sys/Lopez Pulse Ox Last 24 Hr 97.4 F-98.9 F 70-76 16-18 112-171/64-92 96-96 PHYSICAL EXAM GENERAL: The patient is pleasant. AOX3 NAD HEAD: NCAT EYES: PERRL, extraocular movements intact, sclera anicteric, conjunctiva clear. ENT: nares patent, oropharynx clear without exudates, MMM NECK: Trachea midline, supple. LUNGS: crackles at bases, mildly improving HEART: RRR, S1, S2 without murmur, rub or gallop. ABDOMEN: Soft, obese, NTND, normoactive bowel sounds, no guarding, no rebound EXTREMITIES: 2+ pt pulses, warm, well-perfused. 2+ pitting edema, mildly improving today R>L NEUROLOGICAL: Cranial nerves II through XII grossly intact. sensation intact. able to lift lower extremities today. PSYCH: Normal mood, normal affect. SKIN: Warm, dry, normal turgor LABS Laboratory Results - last 24 hr 10/02/18 10/06/18 10/06/18 10:30 06:30 06:30 WBC 4.5 RBC 2.99 L Hgb 8.5 L Hct 25.6 L MCV 85.6 MCH 28.5 MCHC 33.2 RDW 14.9 Plt Count 262 MPV 7.6 Sodium 139 Potassium 4.2 Chloride 106 Carbon Dioxide 27 Anion Gap 6 L BUN 71 H Creatinine 3.8 H Creat Clearance w eGFR 16.50 POC Glucometer Random Glucose 98 Calcium 8.2 L Phosphorus 4.2 Magnesium 2.3 Iron TIBC Iron Saturation Vitamin B12 842 Serum Folate 17 c-ANCA <1:20 Proteinase 3 (PR3) <3.5 p-ANCA <1:20 Atypical p-ANCA <1:20 Myeloperoxidase Ab <9.0 10/06/18 10/06/18 10/06/18 06:30 11:06 16:11 WBC RBC Hgb Hct MCV MCH MCHC RDW Plt Count MPV Sodium Potassium Chloride Carbon Dioxide Anion Gap BUN Creatinine Creat Clearance w eGFR POC Glucometer 101 127 Random Glucose Calcium Phosphorus Magnesium Iron 56 TIBC 233 L Iron Saturation 24 Vitamin B12 Serum Folate c-ANCA Proteinase 3 (PR3) p-ANCA Atypical p-ANCA Myeloperoxidase Ab 10/06/18 10/07/18 10/07/18 21:45 06:39 07:15 WBC RBC Hgb Hct MCV MCH MCHC RDW Plt Count MPV Sodium 139 Potassium 3.9 Chloride 106 Carbon Dioxide 29 Anion Gap 4 L BUN 67 H Creatinine 3.5 H Creat Clearance w eGFR 18.14 POC Glucometer 125 107 Random Glucose 115 H Calcium 8.1 L Phosphorus 4.2 Magnesium 2.4 Iron TIBC Iron Saturation Vitamin B12 Serum Folate c-ANCA Proteinase 3 (PR3) p-ANCA Atypical p-ANCA Myeloperoxidase Ab [facility] 10/2017 planned staged PCI of mid LAD [facility] 09/2017 (for inf ischemia on MPI) mild RCA, 80-90% LCx s/p FER, 70-80% mLAD. EDP 25->15 post nitro, EF 50% Echo 05/2018 mildly dilated LV, mild conc LVH, with discrete upper septal component, overal nl LV function EF 55%LA pressure uncertain, no RWMA,nl RV, mild MR, at least mild pulm HTN, mild MRRVSP at least 48 mmHg ECHO 09/28/18 Interpretation Summary The left ventricle is normal in size. Left ventricular systolic function is mild to moderately reduced. There is mild to moderate global hypokinesis of the left ventricle. Ejection Fraction = 40-45%. The right ventricular systolic function is normal. The left atrial size is normal. Right atrial size is normal. There is mild mitral regurgitation. There is mild to moderate tricuspid regurgitation. There is mild aortic sclerosis.; Trivial pericardial effusion not hemodynamically significant Large pleural effusion Previous study is not available for comparsion [id number] US/KIDNEY / RENAL US Renal insufficiency Renal ultrasound The right kidney measures 13.2 cm in sagittal length and the left kidney measured 13 cm. Both kidneys appear morphologically unremarkable. There is no gross evidence of hydronephrosis or renal stones, bilaterally. Visualized portion of the liver and spleen appear unremarkable. Note is made of bilateral pleural effusion. IMPRESSION: Both kidneys appear unremarkable without gross evidence of hydronephrosis or renal stones. Note is made of bilateral pleural effusion. HOSPITAL COURSE: Date of Admission:09/25/18 Date of Discharge: 10/07/18 58 y/o M with PMH DM (A1c 4.5), HTN, HLD, CKD (baseline Cr ~2), CAD s/p 2 FER cardiac stents (10/2017), L4/L5 vertebral OM, PVD who presents to the ED c/o SOB over the past two weeks and found to be in volume overload suspected due to CHF , w/ noted HTN urgency in ED Admitted for Acute on Chronic Systolic CHF exacerbation and noted w/ HTN urgency. Cardio consulted (Ana, f/w him outpt). ECHO - EF 40-45%, mild to moderate global hypokinesis of LV, Large pleural effusion. per cardio had + stress in 09/2017 and had stent x2 placed at that time. will need to optimize his therapy at this time and may require repeat stress as outpt once euvolemic. pt was tx w/ IV lasix 80mg and improved. Hospital course however was complicated by GABI on CKD III likely 2/2 Cardio-renal syndrome vs. renal hypoprofusion in setting of IV diuresis - FeUrea 19.5%. nephro consulted (Richie) . Of note, Pt has CKD III that has been progressively worsening, baseline Cr ~1 (2016), Per PCP; Cr 1.8 (04/28/18) and 2.16 (08/26/18) and apparently pt was requiring bx as outpatient. In the hospital here pt's Cr peaked at 4.4 and then downdtrended to 3.5 w/ combo of lasix vacation and then restarting at 80mg qd. Pt noted w/ nephrotic range proteinuria and Renal w/u was initiated; Renal U/S not suggestive of any acute disease or obstruction. Nephrology evaluated and recommend Renal Doppler along with LE duplex- both studies negative for thrombosis. RPR, Hepatitis panel negative, urine eosinophils none, serology/ immunology pending. Pt will f/u w/ Richie on 10/12/18 for possible biopsy. ASA, Plavix have been held and will cont to be held for 7 days prior to Renal Bx ( cleared with Cardiology) #HTN urgency- resolved -increased home labetolol dose from 200 to 300 bid -started hydral 50 TID and cont on dc -c/w home dose imdur 30 and nifedipine 90 -ARB held w/ GABI but will resume on dc -per cardio, c/w labetolol and uptitrate for BP ctl as needed as HTN is likely cause for cardiomyopathy causing reduced EF. c/w increased dose of 300 bid. Ideally should be on coreg for HFref but now more important to ctl HTN as likely culprit of hypokinesis seen on echo. #Ileus - resolved. pt was noted w/ abd discomfort and distension. abd XR showed ileus vs small SBO/partial SBO. surgery consulted. pt was made NPO, rpt XR shows no gross obstruction. pt sxs improved, tolerating PO, +flatus and nl BMs #Normocytic Anemia, Chronic - likely 2/2 worsening CKD - B12, folate nl #Dispo pt may benefit from outpt cardiac rehab pt is stable and ready for dc w/ appropriate outpt f/u Minutes to complete discharge: 39 Discharge Summary Reason For Visit: ACUTE KIDNEY INJURY,SOB,HYPERVOLEMIA Current Active Problems GABI (acute kidney injury) (Acute) Hypervolemia (Acute) Ileus, unspecified (Acute) Shortness of breath (Acute) Condition: Stable - Instructions Diet, Activity, Other Instructions: you came in with shortness of breath, leg swelling, and uncontrolled hypertension. we gave you your blood pressure meds and did an ultrasound of your heart which showed decreased pumping of your heart. we also gave you water pill lasix to help remove the excess fluid in your lungs and legs. we have held your aspirin and plavix in anticipation of your kidney biopsy. Please resume aspirin and plavix after you get your biopsy but not before MEDS we have increased your labetolol to 300mg twice a day for better blood pressure control we have added hydralazine 25mg three times a day for better blood pressure control Please stop taking metaolzone. Instead we have started you on lasix 80mg once a day to help remove the fluid from your lungs and legs We have held your plavix and aspirin in order so that you can get your kidney biopsy. Please stop taking for at least 7 days prior to the biopsy. Please follow up with your system support developer or with system support developer Dr Quiroz on 10/12/18 for possible biopsy. Please resume aspirin and plavix after you get your biopsy but not before. If Dr Quiroz feels you do not need the biopsy, then please resume aspirin plavix as soon as possible Please resume your other home meds please monitor and record your blood pressure at home and bring these records to your child life specialist or primary care physician please limit your salt intake please weigh yourself daily. if you notice any unexplained weight gain of 1-2 pounds in less than 2 days please call your primary care physician or your child life specialist Please follow up with your primary care physician within 1 week Please follow up with your child life specialist Dr. Perez within 1 week Please follow up with with system support developer Dr Quiroz on 10/12/18 for possible biopsy If you experience any worsening shortness of breath or any chest pain or any unexplained weight gain of 1-2 pounds in less than 2 days, increased leg swelling, please call 911 or go to the ER. Referrals: Frank Perez MD [Staff Physician] - 1 Week Mansoor Quiroz MD [Staff Physician] - 10/12/18 Disposition: HOME - Home Medications Comprehensive Discharge Medication List: Ambulatory Orders Glipizide [Glucotrol] 5 mg PO BID 04/08/17 Atorvastatin Ca [Lipitor] 40 mg PO HS 09/25/18 Ergocalciferol (Vitamin D2) [Vitamin D2] 50,000 unit PO WEEKLY 09/25/18 Isosorbide Mononitrate [Isosorbide Mononitrate ER] 30 mg PO DAILY 09/25/18 Losartan Potassium 50 mg DAILY 09/25/18 Ranolazine [Ranexa] 500 mg PO BID 09/25/18 Tamsulosin HCl [Flomax] 0.4 mg PO DAILY 09/25/18 Nifedipine ER [Procardia XL -] 90 mg PO DAILY 09/29/18 Aspirin [Aspirin EC] 81 mg PO DAILY #0 tab 10/07/18 Clopidogrel Bisulfate [Plavix] 75 mg PO DAILY #0 tab 10/07/18 Furosemide [Lasix -] 80 mg PO DAILY 30 Days #60 tablet 10/07/18 Labetalol HCl [Normodyne -] 300 mg PO BID 30 Days #180 tablet 10/07/18 hydrALAZINE HCL [Apresoline -] 50 mg PO TID 30 Days #90 tablet 10/07/18 This patient is new to me today: Yes Date on this admission: 10/07/18 Emergency Visit: Yes ED Registration Date: 09/25/18 Care time: The patient presented to the Emergency Department on the above date and was hospitalized for further evaluation of their emergent condition. Critical Care patient: No - Discharge Referral Referred to [facility] Med P.C.: No
[2018-10-07] MEDS ORDERED: TAMSULOSIN HCL 0.4 MG CAP PO SCH (08:30)
[2018-10-07] MEDS: RANOLAZINE E.R. 500 MG TABLET (FP) PO SCH (09:26)
[2018-10-07] MEDS: LABETALOL HCL 100 MG TABLET (FP) PO SCH (09:27)
[2018-10-07] MEDS ORDERED: FUROSEMIDE 40 MG TABLET (FP) PO SCH (10:00)
[2018-10-07] MEDS ORDERED: NIFEdipine E.R. 90 MG TABLET (FP) PO SCH (10:00)
[2018-10-07] MEDS ORDERED: ISOSORBIDE MONONITRATE 30 MG TAB.SR.24H (FP) PO SCH (10:00)
--- NOTE | 2018-10-07 11:07 | PN ---
Teaching Attending Note Name of Resident: Navdeep Villalpando ATTENDING PHYSICIAN STATEMENT I saw and evaluated the patient. I reviewed the resident's note and discussed the case with the resident. I agree with the resident's findings and plan as documented. SUBJECTIVE:asymptomatic. states he is tolerating liquids with no pain. +BM last night. denies CP, SOB, fever, chills, N/V/C/D OBJECTIVE: Last Vital Signs Temp Pulse Resp BP Pulse Ox 97.8 F 70 18 112/64 96 10/07/18 05:00 10/07/18 05:00 10/07/18 05:00 10/07/18 05:00 10/06/18 21:00 Intake & Output 10/04/18 10/05/18 10/06/18 10/07/18 23:59 23:59 23:59 23:59 Intake Total 750 450 460 Output Total 2049 1999 200 Balance 750 -1600 -1540 -200 Weight 287 lb 4 oz 288 lb 285 lb 7 oz 281 lb 12.8 oz General NAD Lungs CTA B/L no wheezing/rales/rhonchi ABodmen soft +distended, NT. hypoactive BS Extremities 1+ pitting edema ASSESSMENT AND PLAN: 58yo M with PMH DM, HTN, CAD s/p 2 stents, L4/L5 vertebral OM, PVD presented to the ER with progressively worsening SOB and cough and found to be in volume overload suspected due to CHF 1. New onset systolic CHF-cliniaclly improved however has signs of volume overload. will d/c on lasix 80mg po daily, hold metalozone. cardio on board. strict I&O, daily weights 2. Acute on CKD-likely cardiorenal as all other testing is negative. Cr peaked at 4.4 and now slowly trending down. will need renal bx off asa/plavix (held starting 10/06) plans to f/u with Dr Quiroz on friday for bx. 3. Abdominal distention- AXR done showing ileus vs early SBO. clinically stable with BM. advance diet. 4. HTN urgency-overall improve but above goal. will cont to titrate medications to optimize BP 5. hypokalemia- resolved 6. CAD s/p stents- cont ranexa/statin. asa and plavix on hold pending bx 7. DM- hold oral agents. iss an bgm 8. hx of L4L5 vertebral OM 9. DVT ppx- hep sq 10/ d/c home with detailed instructions on medication changes and follow up
--- NOTE | 2018-10-07 11:56 | PN ---
Progress Note (short form) - Note Progress Note: s: edema stable. no orthopnea, chest pain, palps, dizziness sob Current Medications Acetaminophen (Tylenol -) 650 mg PO Q6H PRN PRN Reason: PAIN LEVEL 1 - 3 Last Admin: 10/06/18 21:49 Dose: 650 mg Atorvastatin Calcium (Lipitor -) 40 mg PO HS [facility] Last Admin: 10/06/18 21:50 Dose: 40 mg Docusate Sodium (Colace -) 100 mg PO TID [facility] Last Admin: 10/07/18 06:41 Dose: Not Given Furosemide (Lasix -) 80 mg PO DAILY [facility] Last Admin: 10/07/18 09:27 Dose: 80 mg Guaifenesin (Robitussin Dm -) 10 ml PO Q8H PRN PRN Reason: COUGH Heparin Sodium (Porcine) (Heparin -) 5,000 unit SQ TID [facility] Last Admin: 10/07/18 06:41 Dose: 5,000 unit Hydralazine HCl (Apresoline -) 50 mg PO TID [facility] Last Admin: 10/07/18 06:41 Dose: 50 mg Insulin Aspart (Novolog Vial Sliding Scale -) 1 vial SQ [facility]; Protocol Last Admin: 10/07/18 11:48 Dose: Not Given Isosorbide Mononitrate (Imdur -) 30 mg PO DAILY [facility] Last Admin: 10/07/18 09:27 Dose: 30 mg Labetalol HCl (Normodyne -) 300 mg PO BID [facility] Last Admin: 10/07/18 09:27 Dose: 300 mg Nifedipine (Procardia Xl -) 90 mg PO DAILY [facility] Last Admin: 10/07/18 09:27 Dose: 90 mg Ranolazine (Ranexa -) 500 mg PO BID [facility] Last Admin: 10/07/18 09:26 Dose: 500 mg Senna (Senna -) 2 tab PO [facility] Last Admin: 10/06/18 21:51 Dose: Not Given Tamsulosin HCl (Flomax -) 0.4 mg PO DAILY@0830 [facility] Last Admin: 10/07/18 09:26 Dose: 0.4 mg Vital Signs Period Temp Pulse Resp BP Sys/Lopez Pulse Ox Last 24 Hr 97.4 F-98.9 F 70-76 16-18 112-171/64-81 96 Constitutional: Yes: Well Nourished, No Distress, Calm Eyes: Yes: Conjunctiva Clear Respiratory: Yes: Regular, CTA Bilaterally Gastrointestinal: Yes: Normal Bowel Sounds, Soft Cardiovascular: Yes: Regular Rate and Rhythm JVD: No Heart Sounds: Yes: S1, S2 Musculoskeletal: No: Back Pain Extremities: No: Cold Edema: Yes Edema: trace le edema bl Integumentary: No: Jaundice Neurological: Yes: Alert, Oriented Psychiatric: No: Agitated [facility] 10/2017 planned staged PCI of mid LAD [facility] 09/2017 (for inf ischemia on MPI) mild RCA, 80-90% LCx s/p FER, 70-80% mLAD. EDP 25->15 post nitro, EF 50% Echo 05/2018 mildly dilated LV, mild conc LVH, with discrete upper septal component, overal nl LV function EF 55%LA pressure uncertain, no RWMA,nl RV, mild MR, at least mild pulm HTN, mild MRRVSP at least 48 mmHg echo 09/2018 nl LV size, mild to mod reduced LV function EF 40-45%, RV nl, nl biatrial size, mild MR, mild to mod TR, mild ao sclerosis, trivial pericardial effusion, lg pleural effusion Assessment/Plan Acute systolic HF exacerbation - receiving lasix 40 mg IV BID, wt 282->278 lbs, Cr 2.4 on admission, now 2.8 - lg pleural effusion on echo - EF 40-45% on echo here, reportedly reduced function compared to prior in office - holding ARB for GABI - on labetolol at increased - 10/01-: cr continues to rise. will continue to hold lasix for now and monitor cr. - 10/05: cr remains elevated, plans for renal bx. -10/06-3: cr improving, cont lasix 80 mg po qd GABI on CKD - per outpatient notes reportedly Cr 1.8 in 04/2018, had been planning for outpatient kidney biopsy-->now with worsening cr, planned for renal bx now, ok to hold asa/plavix as his pci was a year ago. No cardiac contraindications to planned renal biopsy. - renal u/s no obstruction - nephrology consulting CAD - s/p FER most recently 09/2017, 10/2017 - ok to hold asa/plavix for kidney bx as his pci was a year ago - kidney bx planned for Thursday 10/12, holding plavix HTN - on labetolol 200 mg BID as outpatient, increased to 300 mg BID here - on nifedipine, nitrates - hydralazine increased here for improved BP control, uptitrate as tolerated for improved BP control pulm HTN - mild on echo, likely due to diastolic dysfunction cerebral atherosclerosis - LICA plaque noted 2016 - on aspirin, plavix, statin PAD - hx L SFA stent, [employer] of left 2016 - aspirin, statin, plavix HLD - cont statin DM - manage per primary
--- NOTE | 2018-10-07 16:27 | PN ---
Progress Note (short form) - Note Progress Note: Renal follow up for GABI Pt seen and examined at the bedside SOB is improved today had loose BMs today no cp, abd pain making urine Vital Signs Temperature 98.0 F 10/07/18 14:16 Pulse Rate 71 10/07/18 14:16 Respiratory Rate 18 10/07/18 14:16 Blood Pressure 142/70 10/07/18 14:16 O2 Sat by Pulse Oximetry (%) 96 10/06/18 21:00 Intake & Output 10/04/18 10/05/18 10/06/18 10/07/18 23:59 23:59 23:59 23:59 Intake Total 750 450 460 Output Total 2050 2000 200 Balance 750 -1600 -1540 -200 Weight 130.294 kg 130.635 kg 129.472 kg 127.822 kg NAD on room air CTA, no rales or wheeze soft NT/ND no bladder distension ++ edema in LE no cyanosis or clubbing CBC, BMP 10/06/18 06:30 10/07/18 07:15 Current Medications Acetaminophen (Tylenol -) 650 mg PO Q6H PRN PRN Reason: PAIN LEVEL 1 - 3 Last Admin: 10/06/18 21:49 Dose: 650 mg Atorvastatin Calcium (Lipitor -) 40 mg PO HS [facility] Last Admin: 10/06/18 21:50 Dose: 40 mg Docusate Sodium (Colace -) 100 mg PO TID [facility] Last Admin: 10/07/18 15:04 Dose: Not Given Furosemide (Lasix -) 80 mg PO DAILY [facility] Last Admin: 10/07/18 09:27 Dose: 80 mg Guaifenesin (Robitussin Dm -) 10 ml PO Q8H PRN PRN Reason: COUGH Heparin Sodium (Porcine) (Heparin -) 5,000 unit SQ TID [facility] Last Admin: 10/07/18 15:05 Dose: 5,000 unit Hydralazine HCl (Apresoline -) 50 mg PO TID [facility] Last Admin: 10/07/18 15:06 Dose: 50 mg Insulin Aspart (Novolog Vial Sliding Scale -) [address] [facility]; Protocol Last Admin: 10/07/18 11:48 Dose: Not Given Isosorbide Mononitrate (Imdur -) 30 mg PO DAILY [facility] Last Admin: 10/07/18 09:27 Dose: 30 mg Labetalol HCl (Normodyne -) 300 mg PO BID [facility] Last Admin: 10/07/18 09:27 Dose: 300 mg Nifedipine (Procardia Xl -) 90 mg PO DAILY [facility] Last Admin: 10/07/18 09:27 Dose: 90 mg Ranolazine (Ranexa -) 500 mg PO BID [facility] Last Admin: 10/07/18 09:26 Dose: 500 mg Senna (Senna -) 2 tab PO HS [facility] Last Admin: 10/06/18 21:51 Dose: Not Given Tamsulosin HCl (Flomax -) 0.4 mg PO DAILY@0830 [facility] Last Admin: 10/07/18 09:26 Dose: 0.4 mg 58 year old gentleman with hx of CAD s/p PCI and stenting, hypertension, DM, Hyperlipidemia, CKD (baseline Cr ~2) who presented with SOB and admitted for CHF exacerbation with GABI. #GABI with unclear etiology #CKD with proteinuria #CHF exacerbation #CAD #DM #Hyeprtension #Hyperlipidemia #Anemia Renal function with mild improvement serologic work up negative thus far stable for discharge on Lasix 80mg Daily holding ASA and Plavix will plan for tentative renal biopsy next week to follow up in our office next Friday at 2:45 and will repeat labs at that time Thank you Mansoor Quiroz DO
[2018-10-07 18:10] VITALS: BP 155/86; PULSE 75; TEMP 98.4
== END 2018-10-07 20:00 | disposition home or self-care (01) | DRG 469 ==
LOC: JER 13:02 → JERBED 14:54 → J4W 19:30 → J7W 10-03 12:00
PROVIDERS: ADMIT Internal Medicine; ATTEND Internal Medicine
DX: N17.9 Acute kidney failure, unspecified (principal); I13.0 Hypertensive heart and chronic kidney disease with heart failure and stage 1 through stage 4 chronic kidney disease, or unspecified chronic kidney disease; I50.21 Acute systolic (congestive) heart failure; E78.5 Hyperlipidemia, unspecified; I25.10 Atherosclerotic heart disease of native coronary artery without angina pectoris; E11.22 Type 2 diabetes mellitus with diabetic chronic kidney disease; N18.3 Chronic kidney disease, stage 3 (moderate); E87.6 Hypokalemia; I16.0 Hypertensive urgency; E11.51 Type 2 diabetes mellitus with diabetic peripheral angiopathy without gangrene; I27.20 Pulmonary hypertension, unspecified; K56.7 Ileus, unspecified; D64.9 Anemia, unspecified; R80.9 Proteinuria, unspecified; E87.70 Fluid overload, unspecified; Z68.36 Body mass index [BMI] 36.0-36.9, adult; N40.0 Benign prostatic hyperplasia without lower urinary tract symptoms; I67.2 Cerebral atherosclerosis; M46.26 Osteomyelitis of vertebra, lumbar region; Z89.422 Acquired absence of other left toe(s); Z95.5 Presence of coronary angioplasty implant and graft; E66.9 Obesity, unspecified
CPT/HCPCS: 36415; 71045-TC-FY; 71046-TC-FY; 74018-TC-FY; 74019-TC-FY; 76775-TC; 80048; 80053; 80074; 81003; 82550; 82553; 82570; 82607; 82746; 82962; 83036; 83520; 83540; 83550; 83735; 83880; 84100; 84155; 84156; 84165; 84484; 84540; 85025; 85027; 85610; 86038; 86256; 86593; 87205; 93005; 93010; 93306-TC; 93970-TC; 93976; 97116-GP; 97161-GP; 99285-25; J1644

== ENCOUNTER 2018-10-10 20:38 | Inpatient (IN) | payer OTHER ==
--- NOTE | 2018-10-10 20:46 | PDOC ---
History of Present Illness - General Stated Complaint: DIABETIC EMERGENCY Time Seen by Provider: 10/10/18 20:45 History Source: Patient, Spouse ( present at bedside.), Old Records Exam Limitations: No Limitations - History of Present Illness Initial Comments: HPI: 58 y/o male BIBEMS to [facility] ER after being found hypoglycemic at home. EMS administered 2 amps of D25 enroute. Pts reports finding her speaking very slowly and cold to the touch when she arrived home from work. The home glucometer resulted a BGL of 0. Pt denies taking his insulin today. Does not believe he could have accidentally overdosed on his Glipizide. denies h /o of previous hypoglycemic episodes. Pt states he has not taken his home insulin in the three days since he has been discharged. Reports BGLs have been within his goal range. Does not believe any measurements have been low. Pt was recently discharged from this facility on 07 October 2018 for CHF exacerbation. Found to have an GABI superimposed on his CKD. Scheduled to undergo outpatient renal biopsy with Dr. Quiroz. PCP: Waldemar Eid Construction Helper: Dr. Quiroz Pricing Actuary: Dr. Perez Medical Hx: - DM - HTN - HLD - CAD s/p x2 stents - CKD with baseline Cr ~2 Past History - Past Medical History Allergies/Adverse Reactions: Allergies Allergy/AdvReac Type Severity Reaction Status Date / Time No Known Allergies Allergy Verified 10/10/18 21:09 Home Medications: Ambulatory Orders Glipizide [Glucotrol] 5 mg PO BID 04/08/17 Atorvastatin Ca [Lipitor] 40 mg PO HS 09/25/18 Ergocalciferol (Vitamin D2) [Vitamin D2] 50,000 unit PO WEEKLY 09/25/18 Tamsulosin HCl [Flomax] 0.4 mg PO DAILY 09/25/18 Furosemide [Lasix -] 80 mg PO DAILY 30 Days #60 tablet 10/07/18 Labetalol HCl [Normodyne -] 300 mg PO BID 30 Days #180 tablet 10/07/18 hydrALAZINE HCL [Apresoline -] 50 mg PO TID 30 Days #90 tablet 10/07/18 Anemia: No Asthma: No Cancer: No Cardiac Disorders: No CVA: No COPD: No CHF: No Dementia: No Diabetes: Yes GI Disorders: No Disorders: No HTN: Yes Hypercholesterolemia: Yes Liver Disease: No Seizures: No Thyroid Disease: No - Surgical History Orthopedic Surgery: Yes - Suicide/Smoking/Psychosocial Hx Smoking History: Never smoked Have you smoked in the past 12 months: No Hx Alcohol Use: No Drug/Substance Use Hx: No Substance Use Type: None Hx Substance Use Treatment: No Review of Systems - Review of Systems Able to Perform ROS?: Yes Comments:: In addition to that documented in the HPI above, the additional ROS was obtained : Constitutional: Denies fevers or chills Head: Denies vision changes ENMT: Denies sore throat CV: Denies chest pain Resp: Denies SOB GI: Denies vomiting or diarrhea : Denies painful urination MSK: Denies recent trauma Skin: Denies new rashes Neuro: Denies new numbness or tingling or weakness Endocrine: Denies polyuria Heme: Denies bleeding or bruising *Physical Exam - Vital Signs Vital Signs (72 hours) 10/10/18 10/10/18 21:00 21:10 Temperature 93.1 F L 93.1 F L Pulse Rate 61 Pulse Rate [ 61 Left Radial] Respiratory 16 16 Rate Blood Pressure 206/101 H Blood Pressure 206/101 H [Right Arm] O2 Sat by Pulse 98 98 Oximetry (%) - Physical Exam Comments: Constitutional: Adult male in some acute distress. Found semi-fowlers on hospital bed. Alert and oriented x4. Speech slowed. Head: Normocephalic. No obvious external signs of trauma. Eyes: Sclerae white. Ears: Hearing grossly intact. Neck: Supple, trachea is midline. Cardiovascular / Chest: Regular rate and regular rhythm. No murmur, rubs, clicks, or gallops. Peripheral pulses: radial pulses full. Respiratory: Breathing unlabored. Equal chest rise and fall. Clear to auscultation bilaterally. No stridor, no wheezing, no rhonchi. Gastrointestinal: abdomen is soft, non-tender, non-distended. Neuro: Alert and oriented. Moving all four extremities spontaneously. Skin/MSK: Pale, cool, and diaphoretic. No bruising, rashes, or other lesions. Bilateral 3+ pitting pretibial edema. Lymphatics: No cervical, supraclavicular, epitrochlear or inguinal nodes palpated. Psych: Affect: flat. Mood: normal. ED Treatment Course - LABORATORY CBC & Chemistry Diagram: 10/10/18 21:50 10/10/18 23:14 Medical Decision Making - Medical Decision Making *Reviewed vital signs, nursing notes, and prior visit documentation (if available). 68 y/o male presenting with symptomatic hypoglycemia. Suspect hypothermia is secondary to the hypoglycemia. Suspect possible pharmacologic etiology, either accidental or secondary to poor renal function. Found to be hypoglycemic on arrival. Given an amp of D50 and two sandwiches. Hypertensive to 206/101 on arrival. ED attending ordered 2x SL nitro, 1 inch of nitropaste, and Valsartan. Ordered CBC and CMP. EKG and CXR ordered for likely admission. CBC unremarkable for leukocytosis or anemia. CMP hemolyzed. Reordered. 22:59 Telephone consultation with resident Dr. Sawant. Verbally appraised of the pts HPI, ED course, and current plan of management. Will admit pt but awaiting results of CMP to determine level of care. Dr. Gold will accept the pt to telemetry on observation. *DC/Admit/Observation/Transfer Diagnosis at time of Disposition: Hypoglycemia Hypothermia Qualifiers: Encounter type: initial encounter Qualified Code(s): T68.XXXA - Hypothermia, initial encounter - Discharge Dispostion Condition at time of disposition: Stable Decision to Admit order: Yes - Referrals Referrals: Waldmear Eid MD [Primary Care Provider] - - Patient Instructions - Post Discharge Activity
--- NOTE | 2018-10-10 20:59 | PDOC ---
Attending Attestation - HPI HPI: The patient is a 58 year old male, with a significant PMH of HTN, HLD, DM, 2 cardiac stents, and kidney disease (described as kidneys spilling protein), who presents to the emergency department today for decreased blood sugar level for one day. As per patients , he had soup for lunch. While trying to make a chicken sandwich, he states he felt weak. She notes her felt hot, was extremely diaphoretic (soaking his sweatshirt), and became slow to respond. When she measured his blood sugar levels, she states it was almost at 0. Patient s notes he took all of his daily medications today. The patient denies chest pain, shortness of breath, headache and dizziness. Denies fever, chills, nausea, vomit, diarrhea and constipation. Denies dysuria, frequency, urgency and hematuria. Allergies: NKA Past surgical history: Orthopedic surgery Social history: None reported PCP: Dr. aWldemar Eid 10/10/18 21:23 - Physicial Exam PE: GENERAL: +Hypothermic. Awake alerted, and oriented. Answering all questions. The patient is in no acute distress. HEAD: Normal with no signs of trauma. EYES: PERRLA, EOMI, sclera anicteric, conjunctiva clear. ENT: Ears normal, nares patent, oropharynx clear without exudates. Moist mucous membranes. NECK: Normal range of motion, supple without lymphadenopathy, JVD, or masses. LUNGS: Breath sounds equal, clear to auscultation bilaterally. No wheezes, and no crackles. HEART:Regular rate and rhythm, normal S1 and S2 without murmur, rub or gallop. ABDOMEN: Soft, nontender, normoactive bowel sounds. No guarding, no rebound. No masses palpable. EXTREMITIES: +Pitting edema bilaterally up to the knees. Normal range of motion. No clubbing or cyanosis. No erythema, or tenderness. NEUROLOGICAL: Cranial nerves II through XII grossly intact. Normal speech. No focal neurological deficits. MUSCULOSKELETAL: Back non-tender to palpation, no CVA tenderness SKIN: Warm, Dry, normal turgor, no rashes or lesions noted. 10/10/18 21:23 - Medical Decision Making Documentation prepared by FIOR Huertas, acting as medical malpractice paralegal for Natalia Painter MD. 10/10/18 21:23 <Camille Rodriguez - Last Filed: 10/10/18 21:48> - Resident Resident Name: Rocky Stein - ED Attending Attestation I have performed the following: I have examined & evaluated the patient, The case was reviewed & discussed with the resident, I agree w/resident's findings & plan - Medical Decision Making 10/10/18 21:13 Pt is awake and alert at this time. He is hypothermic. Answering questions. His is at the bedside. He is in no distress, but states that his entire body hurts. 10/10/18 21:34 Pt has fluid in his fissure in his lungs, and bilat congestive pattern. Pt has boot shaped heart and mild cardiomegaly (though AP view) 10/10/18 21:37 10/10/18 22:17 CBC normal. Chem hemolyzed 10/11/18 06:23 BNP is 17K Pt is stable and his HTN has been well controlled with hydralazine. 10/11/18 06:25 Pt admitted to med surg for hypoglycemia <Natalia Painter - Last Filed: 10/11/18 06:29>
[2018-10-10] MEDS ORDERED: NITROGLYCERIN SUBLINGUAL 1/150 0.4 MG TAB SL ONE (21:00)
[2018-10-10] MEDS ORDERED: DEXTROSE 50%-WATER 25 GM/50 ML DISP.SYRIN ONE (21:06)
[2018-10-10] MEDS ORDERED: DEXTROSE 50%-WATER - 25 GM/50 ML VIAL IVPUSH ONE (21:11)
[2018-10-10] MEDS ORDERED: VALSARTAN 80 MG TABLET (UD) PO ONE (21:11)
[2018-10-10 21:17] VITALS: BMI 36.3
[2018-10-10] MEDS ORDERED: NITROGLYCERIN 2% OINTMENT - 1GM PACKET TD ONE ×2 (21:18→21:59)
[2018-10-10] MEDS ORDERED: VALSARTAN 80 MG TABLET (UD) ONE (21:59)
[2018-10-10 22:02] LABS: BASO % 0.8 % (0-2.0); EOS % 1.6 % (0-4.5); HEMATOCRIT 27.5 % (35.4-49); MCH 28.3 pg (25.7-33.7); MCHC 32.6 g/dl (32.0-35.9); MEAN CELL VOLUME 86.8 fl (80-96); MEAN PLT VOLUME 8.2 fl (7.5-11.1); MONO % 5.9 % (3.8-10.2); NEUT % 77.7 % (42.8-82.8); PLATELET COUNT 311 K/MM3 (134-434); RBC 3.16 M/mm3 (4.00-5.60); RDW 15.4 % (11.9-15.9); WHITE BLOOD COUNT 4.8 K/mm3 (4.0-10.0)
[2018-10-10] MEDS ORDERED: LABETALOL HCL 200 MG, LABETALOL HCL 100 MG PO SCH (23:45)
[2018-10-10] MEDS ORDERED: NITROGLYCERIN 25MG/D5W 250ML 25 MG/250 ML ML IVPB SCH (23:45)
[2018-10-10 23:56] LABS: ALBUMIN 2.4 g/dl (3.4-5.0); ALK PHOS 134 U/L (45-117); ANION GAP 6 MMOL/L (8-16); BILIRUBIN,TOTAL 0.5 mg/dL (0.2-1); BLOOD UREA NITROGEN 44 mg/dL (7-18); CALCIUM 8.1 mg/dL (8.5-10.1); CHLORIDE 108 mmol/L (98-107); CO2 28 mmol/L (21-32); CREATININE 2.5 mg/dL (0.55-1.3); GLUCOSE,RANDOM 96 mg/dL (74-106); N-TERMINAL BNP 17028.6 pg/ml (5-125); POTASSIUM 3.9 mmol/L (3.5-5.1); SGOT/AST 56 U/L (15-37); SGPT/ALT 103 U/L (13-61); SODIUM 141 mmol/L (136-145); TOT PROT 6.6 g/dl (6.4-8.2)
[2018-10-10] MEDS ORDERED: hydrALAZINE HCL 20 MG/ML VIAL IVPUSH ONE (23:59)
[2018-10-11] MEDS ORDERED: hydrALAZINE HCL 20 MG/ML VIAL ONE (00:09)
[2018-10-11] MEDS ORDERED: LABETALOL HCL 100 MG TABLET (FP) ONE (00:09)
--- NOTE | 2018-10-11 00:12 | PN ---
Teaching Attending Note Name of Resident: Dragan Neumann ATTENDING PHYSICIAN STATEMENT I saw and evaluated the patient. I reviewed the resident's note and discussed the case with the resident. I agree with the resident's findings and plan as documented. 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 She did a fingerstick and it was 0. She called EMS. He was treated with 2 amps of D25. On arrival to the ED, his fingerstick was 45, temperature was 93.1, and BP 206/101. He was treated with D50 x 1, he ate 2 sandwiches, and drank orange juice. For the BP, he was treated with Nitropaste 1", nitroglycerin SL x 2, and Diovan 80 mg. Currently he has no complaints. He says the last thing he remembers was eating soup and thinking he would later eat a chicken sandwich. He then became tired. He says he has been taking his medications and that his organizes them for him. He thinks he took glipizide this morning and afternoon and says he has not taken any insulin. OBJECTIVE: Vital Signs Period Temp Pulse Resp BP Sys/Lopez Pulse Ox Last 24 Hr 93.1 F-97.2 F 61-99 16-18 200-206/99-101 98-99 HEART: S1S2, RRR LUNGS: Clear ABDOMEN: Obese, soft, non-tender, non-distended, normal BS EXTREMITIES: 2+ edema Laboratory Tests 10/10/18 10/10/18 10/10/18 21:03 21:50 21:50 WBC 4.8 RBC 3.16 L Hgb 9.0 L Hct 27.5 L MCV 86.8 MCH 28.3 MCHC 32.6 RDW 15.4 Plt Count 311 MPV 8.2 Absolute Neuts (auto) 3.7 Neutrophils % 77.7 Lymphocytes % 14.0 D Monocytes % 5.9 Eosinophils % 1.6 Basophils % 0.8 Nucleated RBC % 0 Sodium Cancelled Potassium Cancelled Chloride Cancelled Carbon Dioxide Cancelled Anion Gap Cancelled BUN Cancelled Creatinine Cancelled Creat Clearance w eGFR Cancelled POC Glucometer 45 Random Glucose Cancelled Calcium Cancelled Total Bilirubin Cancelled AST Cancelled ALT Cancelled Alkaline Phosphatase Cancelled B-Natriuretic Peptide Total Protein Cancelled Albumin Cancelled 10/10/18 10/10/18 10/10/18 21:50 22:28 23:14 WBC RBC Hgb Hct MCV MCH MCHC RDW Plt Count MPV Absolute Neuts (auto) Neutrophils % Lymphocytes % Monocytes % Eosinophils % Basophils % Nucleated RBC % Sodium 141 Potassium 3.9 Chloride 108 H Carbon Dioxide 28 Anion Gap 6 L BUN 44 H Creatinine 2.5 H Creat Clearance w eGFR 26.75 POC Glucometer 97 Random Glucose 96 Calcium 8.1 L Total Bilirubin 0.5 AST 56 H ALT 103 H Alkaline Phosphatase 134 H B-Natriuretic Peptide Cancelled 95519.6 H Total Protein 6.6 Albumin 2.4 L 10/10/18 23:14 WBC RBC Hgb Hct MCV MCH MCHC RDW Plt Count MPV Absolute Neuts (auto) Neutrophils % Lymphocytes % Monocytes % Eosinophils % Basophils % Nucleated RBC % Sodium Potassium Chloride Carbon Dioxide Anion Gap BUN Creatinine Creat Clearance w eGFR POC Glucometer Random Glucose Calcium Total Bilirubin AST ALT Alkaline Phosphatase B-Natriuretic Peptide Cancelled Total Protein Albumin Home Medications Medication Instructions Recorded Glipizide [Glucotrol] 5 mg PO BID 04/08/17 Atorvastatin Ca [Lipitor] 40 mg PO HS 09/25/18 Ergocalciferol (Vitamin D2) 50,000 unit PO WEEKLY 09/25/18 [Vitamin D2] Tamsulosin HCl [Flomax] 0.4 mg PO DAILY 09/25/18 Furosemide [Lasix -] 80 mg PO DAILY 30 Days #60 tablet 10/07/18 Labetalol HCl [Normodyne -] 300 mg PO BID 30 Days #180 tablet 10/07/18 hydrALAZINE HCL [Apresoline -] 50 mg PO TID 30 Days #90 tablet 10/07/18 ASSESSMENT AND PLAN: This is a 58 year old man with a history of HTN, hyperlipidemia, CAD with stents , chronic systolic heart failure, type 2 DM, 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 1. Type 2 DM with hypoglycemia - Likely secondary to glipizide use in the setting of CKD - Meds need to be clarified as the patient says he did not use his insulin today, but he was not discharged on insulin on 10/07 - Hold glipizide and monitor fingersticks 2. Hypertensive urgency - Given Diovan, Nitropaste, nitroglycerin SL in ED - Hydralazine 10 mg IV x 1 now and resume PO Hydralazine - Resume PO Labetalol 3. Hypothermia - Likely secondary to hypoglycemia 4. Hepatic transaminitis - Hep A IgM, HBsAg, HBcAb, HCV Ab, OLIVE, pANCA negative 10/02/18 - Check RUQ US, ASMA, AMA - ? congestion secondary to CHF, ? medication-induced (Lipitor, Cozaar) - Hold Lipitor 5. HTN - Continue Labetalol, Hydralazine, Lasix 6. Hyperlipidemia - Hold Lipitor secondary to hepatic transaminitis 7. CAD, history of stents - Aspirin, Plavix on hold for renal biopsy - Hold Lipitor secondary to hepatic transaminitis 8. Chronic systolic heart failure - Stable - Continue Lasix 9. Stage 4 CKD with nephrotic range proteinuria - Creatinine appears to be at baseline (2.5 today, was 3.5 on 10/07 and 2.4 on 09/25) - Renal biopsy planned - aspirin, Plavix on hold 10. Anemia secondary to CKD - Hemoglobin stable Patient's medications need to be clarified. As per discharge 10/07, patient should be taking Imdur, Cozaar, Ranexa, Procardia XL. He is unsure of all of his medications as his organizes them for him to take.
[2018-10-11] MEDS ORDERED: ACETAMINOPHEN 325 MG TABLET (FP) PO PRN (00:21)
[2018-10-11] MEDS: LABETALOL HCL 100 MG TABLET (FP) PO SCH ×2 (00:22→10:06)
--- NOTE | 2018-10-11 02:05 | HP ---
CHIEF COMPLAINT: Hypoglycemia PCP: Dr. Eid Nephrology: Dr. Quiroz Cardiology: Dr. Perez HISTORY OF PRESENT ILLNESS: 58 y/o M with PMHx CAD s/p PCI x2 (FER 10/2017), NIDDM, HTN, HLD, CKD Stage III, HFrEF 2/2 to cardiomyopathy who presents today due to hypoglycemic crisis. Pt was discharged 3 days prior after admission for CHF exacerbation to be postulated from cardiomyopathy. During his course pt's Cr acutely worsened and upon discharge he was planned to have kidney biopsy with Dr. Quiroz on 10/12/18. Pt today was found by his to be diaphoretic, minimally responsive and overall sluggish. Pt's took BGM at home which resulted in 0 and she immediately called the EMS. En route pt received D25 amps x2 and upon arrival to the ED he was found to have a BGM of 47 and hypothermic. In the ED pt received 1amp D50, two sandwiches, and orange juice for which a resulting BGM was seen at 97. Pt was noted to be more responsive and was returning back to his baseline mentation. In addition, he was found to be in hypertensive urgency of 200's/80's and was given nitropaste, SL nitro x2, and Valsartan in the ED Currently, pt feels slightly sluggish, but with better mentation. He reports he has been taking his medications as prescribed and he had some soup right before his BGM was found to be low. Pt has memory of the events that transpired, however he reports that during his hypoglycemia he had a clouded cognition. Pt denies any recent URI symptoms, fevers, chills, nausea, vomiting, shortness of breath, chest pain, palpitations, abdominal pain, diarrhea, constipation, back pain, dysuria, polyuria, hematuria. Of note: pt's dry weight reportedly 253lb with current around 280lbs. He reports his edema has neither improved nor worsened. Recent Travel: Denies PAST MEDICAL HISTORY: as above PAST SURGICAL HISTORY: L big toe amputation, CAD s/p 2 FER stents (2018) Social History: used to work for [id number] Smoking: denies Alcohol: occasional Drugs: denies Family History: mother - DM, at age 92 Allergies No Known Allergies Allergy (Verified 10/10/18 21:09) HOME MEDICATIONS: Home Medications Medication Instructions Recorded Glipizide [Glucotrol] 5 mg PO BID 04/08/17 Atorvastatin Ca [Lipitor] 40 mg PO HS 09/25/18 Ergocalciferol (Vitamin D2) 50,000 unit PO WEEKLY 09/25/18 [Vitamin D2] Tamsulosin HCl [Flomax] 0.4 mg PO DAILY 09/25/18 Furosemide [Lasix -] 80 mg PO DAILY 30 Days #60 tablet 10/07/18 Labetalol HCl [Normodyne -] 300 mg PO BID 30 Days #180 tablet 10/07/18 hydrALAZINE HCL [Apresoline -] 50 mg PO TID 30 Days #90 tablet 10/07/18 REVIEW OF SYSTEMS As above PHYSICAL EXAMINATION Vital Signs - 24 hr 10/10/18 10/10/18 10/10/18 21:00 21:10 23:36 Temperature 93.1 F L 93.1 F L 97.2 F L Pulse Rate 61 Pulse Rate [ 61 99 H Left Radial] Respiratory 16 16 18 Rate Blood Pressure 206/101 H Blood Pressure 206/101 H 200/99 H [Right Arm] O2 Sat by Pulse 98 98 99 Oximetry (%) 10/11/18 10/11/18 10/11/18 00:20 01:07 01:17 Temperature Pulse Rate Pulse Rate [ 77 77 80 Left Radial] Respiratory 20 Rate Blood Pressure Blood Pressure 196/93 H 150/77 164/80 [Right Arm] O2 Sat by Pulse 98 Oximetry (%) GENERAL: Awake, alert, and fully oriented, in no acute distress. HEENT: NC/AT, EOMI, POERLA, sclera anicteric, MMM, no posterior oropharynx abnormalities NECK: No JVD appreciated LUNGS: CTA bilaterally. No wheezes, and no crackles. No accessory muscle use. HEART: RRR, normal S1 and S2 with 2/6 diastolic murmur at the LLSB and [place] ABDOMEN: Soft, nontender, not distended, normoactive bowel sounds, no guarding, no rebound MUSCULOSKELETAL: No CVA tenderness. EXTREMITIES: 2+ pulses, warm, well-perfused. No calf tenderness. 2+ edema in b/ l LExt to knees NEUROLOGICAL: calender roll operator II-XII intact. Strength 5/5 throughout, sensation intact throughout. Normal speech. Gait not observed PSYCHIATRIC: Cooperative. Good eye contact. Appropriate mood and affect. SKIN: Warm, dry, no rashes or lesions noted Laboratory Results 10/10/18 10/10/18 10/10/18 21:03 21:50 21:50 WBC 4.8 RBC 3.16 L Hgb 9.0 L Hct 27.5 L MCV 86.8 MCH 28.3 MCHC 32.6 RDW 15.4 Plt Count 311 MPV 8.2 Absolute Neuts (auto) 3.7 Neutrophils % 77.7 Lymphocytes % 14.0 D Monocytes % 5.9 Eosinophils % 1.6 Basophils % 0.8 Nucleated RBC % 0 Sodium Cancelled Potassium Cancelled Chloride Cancelled Carbon Dioxide Cancelled Anion Gap Cancelled BUN Cancelled Creatinine Cancelled Creat Clearance w eGFR Cancelled POC Glucometer 45 Random Glucose Cancelled Calcium Cancelled Total Bilirubin Cancelled AST Cancelled ALT Cancelled Alkaline Phosphatase Cancelled B-Natriuretic Peptide Total Protein Cancelled Albumin Cancelled 10/10/18 10/10/18 10/10/18 21:50 22:28 23:14 WBC RBC Hgb Hct MCV MCH MCHC RDW Plt Count MPV Absolute Neuts (auto) Neutrophils % Lymphocytes % Monocytes % Eosinophils % Basophils % Nucleated RBC % Sodium 141 Potassium 3.9 Chloride 108 H Carbon Dioxide 28 Anion Gap 6 L BUN 44 H Creatinine 2.5 H Creat Clearance w eGFR 26.75 POC Glucometer 97 Random Glucose 96 Calcium 8.1 L Total Bilirubin 0.5 AST 56 H ALT 103 H Alkaline Phosphatase 134 H B-Natriuretic Peptide Cancelled 13620.6 H Total Protein 6.6 Albumin 2.4 L 10/10/18 10/11/18 23:14 01:14 WBC RBC Hgb Hct MCV MCH MCHC RDW Plt Count MPV Absolute Neuts (auto) Neutrophils % Lymphocytes % Monocytes % Eosinophils % Basophils % Nucleated RBC % Sodium Potassium Chloride Carbon Dioxide Anion Gap BUN Creatinine Creat Clearance w eGFR POC Glucometer 137 Random Glucose Calcium Total Bilirubin AST ALT Alkaline Phosphatase B-Natriuretic Peptide Cancelled Total Protein Albumin ASSESSMENT/PLAN: Hypoglycemia Hypertensive Urgency Transaminitis CKD Stage III HFrEF Cardiomyopathy 2/2 to uncontrolled HTN NIDDM CAD s/p PCI x2 Will continue with BGM q4h to monitor glucose levels. Can switch to BGM ACHS and ISS coverage only if consistently without hypoglycemia Will hold Sulfonylurea and likely will not continue upon discharge Will give Hydralazine 10mg IVP once considering pt did not receive his home medications for night yet. --Continue Labetalol 300mg BID, hydralazine 50mg TID --Holding Flomax for now --Repeat BP currently 160/82 without any symptoms. --Transaminitis likely due to congestive hepatopathy --No abdominal pain on exam --Will monitor LFTs for hopeful downtrend; if not then RU US --Continue to hold ASA and Plavix as pt is to have renal Bx Friday10/12/18 --Can restart after biopsy with nephrology approval --Cr improved to 2.5 on initial labs --Will restart Lasix 80mg qDaily FEN: Fluids: Avoid Electrolyte abnormalities: None Nutrition: Sodium/diabetic controlled PPX: DVT - Heparin SQ TID GI - Not indicated Dispo: Admit given hypertensive urgency and hypoglycemia 2/2 decreased renal clearance Case discussed with Dr. Asif Neumann, DO - IM PGY-2 Visit type - Emergency Visit Emergency Visit: Yes ED Registration Date: 10/11/18 Care time: The patient presented to the Emergency Department on the above date and was hospitalized for further evaluation of their emergent condition. - New Patient This patient is new to me today: Yes Date on this admission: 10/11/18 - Critical Care Critical Care patient: No
[2018-10-11] MEDS ORDERED: hydrALAZINE HCL 25 MG TABLET (FP) ONE (06:11)
[2018-10-11] MEDS ORDERED: HEPARIN NA (PORCINE) 5,000 UNITS/ML 1ML VIAL ONE (06:12)
[2018-10-11 06:20] LABS: HEMATOCRIT 24.6 % (35.4-49); MCH 27.9 pg (25.7-33.7); MCHC 32.7 g/dl (32.0-35.9); MEAN CELL VOLUME 85.4 fl (80-96); MEAN PLT VOLUME 7.5 fl (7.5-11.1); PLATELET COUNT 270 K/MM3 (134-434); RBC 2.88 M/mm3 (4.00-5.60); RDW 15.1 % (11.9-15.9); WHITE BLOOD COUNT 5.2 K/mm3 (4.0-10.0)
[2018-10-11] MEDS: hydrALAZINE HCL 50 MG TABLET (FP) PO SCH ×2 (06:20→13:53)
[2018-10-11] MEDS: HEPARIN NA (PORCINE) 5,000 UNITS/ML 1ML VIAL SQ SCH ×3 (06:21→13:58)
[2018-10-11 06:51] LABS: ALBUMIN 2.1 g/dl (3.4-5.0); ALK PHOS 119 U/L (45-117); ANION GAP 6 MMOL/L (8-16); BILIRUBIN,TOTAL 0.5 mg/dL (0.2-1); BLOOD UREA NITROGEN 49 mg/dL (7-18); CALCIUM 7.7 mg/dL (8.5-10.1); CHLORIDE 109 mmol/L (98-107); CO2 29 mmol/L (21-32); CREATININE 2.8 mg/dL (0.55-1.3); GLUCOSE,RANDOM 97 mg/dL (74-106); MAGNESIUM 1.5 mg/dL (1.8-2.4); PHOSPHOROUS 3.6 mg/dL (2.5-4.9); POTASSIUM 4.1 mmol/L (3.5-5.1); SGOT/AST 42 U/L (15-37); SGPT/ALT 84 U/L (13-61); SODIUM 144 mmol/L (136-145); TOT PROT 5.8 g/dl (6.4-8.2)
--- NOTE | 2018-10-11 07:59 | PN ---
Physical Exam: SUBJECTIVE: Patient seen and examined at bedside. no acute events since admission. denies fevers, chills, cp, sob, n/v/d, urinary sxs OBJECTIVE: Vital Signs Period Temp Pulse Resp BP Sys/Lopez Pulse Ox Last 24 Hr 93.1 F-99.6 F 61-99 16-20 150-206/72-101 95-99 GENERAL: Awake, alert, and fully oriented, in no acute distress. HEENT: NC/AT, EOMI, POERLA, sclera anicteric, MMM, no posterior oropharynx abnormalities NECK: No JVD appreciated LUNGS: CTA bilaterally. No wheezes, and no crackles. No accessory muscle use. HEART: RRR, normal S1 and S2 with 2/6 diastolic murmur at the LLSB and Mchenry ABDOMEN: Soft, nontender, not distended, normoactive bowel sounds, no guarding, no rebound MUSCULOSKELETAL: No CVA tenderness. EXTREMITIES: 2+ pulses, warm, well-perfused. No calf tenderness. 2+ edema in b/ l LExt to knees NEUROLOGICAL: facilitator II-XII intact. Strength 5/5 throughout, sensation intact throughout. Normal speech. Gait not observed PSYCHIATRIC: Cooperative. Good eye contact. Appropriate mood and affect. SKIN: Warm, dry, no rashes or lesions noted Laboratory Results - last 24 hr 10/10/18 10/10/18 10/10/18 21:03 21:50 21:50 WBC 4.8 RBC 3.16 L Hgb 9.0 L Hct 27.5 L MCV 86.8 MCH 28.3 MCHC 32.6 RDW 15.4 Plt Count 311 MPV 8.2 Absolute Neuts (auto) 3.7 Neutrophils % 77.7 Lymphocytes % 14.0 D Monocytes % 5.9 Eosinophils % 1.6 Basophils % 0.8 Nucleated RBC % 0 Sodium Cancelled Potassium Cancelled Chloride Cancelled Carbon Dioxide Cancelled Anion Gap Cancelled BUN Cancelled Creatinine Cancelled Creat Clearance w eGFR Cancelled POC Glucometer 45 Random Glucose Cancelled Calcium Cancelled Phosphorus Magnesium Total Bilirubin Cancelled AST Cancelled ALT Cancelled Alkaline Phosphatase Cancelled B-Natriuretic Peptide Total Protein Cancelled Albumin Cancelled 10/10/18 10/10/18 10/10/18 21:50 22:28 23:14 WBC RBC Hgb Hct MCV MCH MCHC RDW Plt Count MPV Absolute Neuts (auto) Neutrophils % Lymphocytes % Monocytes % Eosinophils % Basophils % Nucleated RBC % Sodium 141 Potassium 3.9 Chloride 108 H Carbon Dioxide 28 Anion Gap 6 L BUN 44 H Creatinine 2.5 H Creat Clearance w eGFR 26.75 POC Glucometer 97 Random Glucose 96 Calcium 8.1 L Phosphorus Magnesium Total Bilirubin 0.5 AST 56 H ALT 103 H Alkaline Phosphatase 134 H B-Natriuretic Peptide Cancelled 81559.6 H Total Protein 6.6 Albumin 2.4 L 10/10/18 10/11/18 10/11/18 23:14 01:14 02:46 WBC RBC Hgb Hct MCV MCH MCHC RDW Plt Count MPV Absolute Neuts (auto) Neutrophils % Lymphocytes % Monocytes % Eosinophils % Basophils % Nucleated RBC % Sodium Potassium Chloride Carbon Dioxide Anion Gap BUN Creatinine Creat Clearance w eGFR POC Glucometer 137 136 Random Glucose Calcium Phosphorus Magnesium Total Bilirubin AST ALT Alkaline Phosphatase B-Natriuretic Peptide Cancelled Total Protein Albumin 10/11/18 10/11/18 05:30 05:30 WBC 5.2 RBC 2.88 L Hgb 8.0 L Hct 24.6 L MCV 85.4 MCH 27.9 MCHC 32.7 RDW 15.1 Plt Count 270 MPV 7.5 Absolute Neuts (auto) Neutrophils % Lymphocytes % Monocytes % Eosinophils % Basophils % Nucleated RBC % Sodium 144 Potassium 4.1 Chloride 109 H Carbon Dioxide 29 Anion Gap 6 L BUN 49 H Creatinine 2.8 H Creat Clearance w eGFR 23.47 POC Glucometer Random Glucose 97 Calcium 7.7 L Phosphorus 3.6 Magnesium 1.5 L Total Bilirubin 0.5 AST 42 H ALT 84 H Alkaline Phosphatase 119 H B-Natriuretic Peptide Total Protein 5.8 L Albumin 2.1 L Active Medications Generic Name Dose Route Start Last Admin Trade Name Freq PRN Reason Stop Dose Admin Acetaminophen 650 mg 10/11/18 00:21 Tylenol - PO Q4H PRN FEVER Furosemide 80 mg 10/11/18 10:00 Lasix - PO DAILY SANGEETHA Heparin Sodium (Porcine) 5,000 unit 10/11/18 06:00 10/11/18 06:21 Heparin - SQ 5,000 unit TID SANGEETHA Administration Hydralazine HCl 50 mg 10/11/18 06:00 10/11/18 06:20 Apresoline - PO 50 mg TID SANGEETHA Administration Labetalol HCl 300 mg 10/10/18 23:45 10/11/18 00:22 Normodyne - PO 300 mg BID SANGEETHA Administration Tamsulosin HCl 0.4 mg 10/11/18 08:30 Flomax - PO DAILY@0830 [facility] ASSESSMENT/PLAN: 58 y/o M with PMHx CAD s/p PCI x2 (FER 10/2017), NIDDM, HTN, HLD, CKD Stage III, HFrEF 2/2 to cardiomyopathy who presents today due to hypoglycemic crisis and found w/ HTN urgency Type 2 DM with hypoglycemia - Likely 2/2 glipizide use in the setting of CKD. resolved, noted to be 45 on arrival here and currently 135. last A1c 4.5 on and may need to hold all hypoglycemic medications going forward. - Meds need to be clarified as the patient says he did not use his insulin today , but he was not discharged on insulin on 10/07. will need to wait for to arrive to see what exact medications he is being given. - Hold glipizide -BGM ACHS and ISS Hypertensive urgency - resolved - Given Diovan, Nitropaste, nitroglycerin SL in ED - Hydralazine 10 mg IV x 1 - Resume home dose Labetalol, hydralazine, Imdur, Cozaar, Ranexa, Procardia XL , Lasix Hypothermia- Likely secondary to hypoglycemia. resolved Hepatic transaminitis - ? congestion secondary to CHF, ? medication-induced ( Lipitor, Cozaar). 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 - Creatinine appears to be at baseline (2.5 today, was 3.5 on 10/07 and 2.4 on ) - Renal biopsy planned - aspirin, Plavix on hold -plan for renal bx possibly tomorrow, was to f/u with nephrology (Richie) as outpatient -nephro consult (Richie) Anemia 2/2 CKD - Hemoglobin stable FEN: Fluids: Avoid Electrolyte abnormalities: None Nutrition: Sodium/diabetic controlled PPX: DVT - Heparin SQ TID GI - Not indicated Dispo: m/s d/c planning in next 24-48H Visit type - Emergency Visit Emergency Visit: Yes ED Registration Date: 10/11/18 Care time: The patient presented to the Emergency Department on the above date and was hospitalized for further evaluation of their emergent condition. - New Patient This patient is new to me today: Yes Date on this admission: 10/11/18 - Critical Care Critical Care patient: No
[2018-10-11 08:00] VITALS: TEMP 98.4
[2018-10-11] MEDS ORDERED: MAGNESIUM SULF 50% (8.12 MEQ/2 ML-1 GM VIAL) IVPB ONE (08:00)
[2018-10-11] MEDS ORDERED: ERGOCALCIFEROL (VITAMIN D2) 50,000 UNIT CAPSULE (FP) PO SCH (08:15)
[2018-10-11] MEDS ORDERED: TAMSULOSIN HCL 0.4 MG CAP PO SCH (08:30)
[2018-10-11] MEDS ORDERED: TAMSULOSIN HCL 0.4 MG CAP ONE (09:15)
[2018-10-11] MEDS ORDERED: MAGNESIUM 1GM/D5W - 2 GM/200 ML IVPB IVPB ONE (09:15)
[2018-10-11] MEDS ORDERED: FUROSEMIDE 40 MG TABLET (FP) ONE (09:18)
[2018-10-11] MEDS ORDERED: LOSARTAN POTASSIUM 50 MG TABLET (FP) PO SCH (10:00)
[2018-10-11] MEDS ORDERED: RANOLAZINE E.R. 500 MG TABLET (FP) PO SCH (10:00)
[2018-10-11] MEDS ORDERED: NIFEdipine E.R. 90 MG TABLET (FP) PO SCH (10:00)
[2018-10-11] MEDS ORDERED: ISOSORBIDE MONONITRATE 30 MG TAB.SR.24H (FP) PO SCH (10:00)
[2018-10-11] MEDS ORDERED: FUROSEMIDE 40 MG TABLET (FP) PO SCH (10:00)
--- NOTE | 2018-10-11 10:39 | PN ---
Teaching Attending Note Name of Resident: Navdeep Villalpando ATTENDING PHYSICIAN STATEMENT I saw and evaluated the patient. I reviewed the resident's note and discussed the case with the resident. I agree with the resident's findings and plan as documented. SUBJECTIVE:asymptomatic. states he was following his new list of medication changes but can not state what he takes, says his arranges his medications. denies CP, SOB, fever, chills, N/V/C/D or weakness OBJECTIVE: Last Vital Signs Temp Pulse Resp BP Pulse Ox 98.4 F 79 20 169/81 94 L 10/11/18 07:59 10/11/18 10:21 10/11/18 07:59 10/11/18 10:21 10/11/18 07:59 General NAD CV S1 S2 RRR no murmur/rub/gallop Lungs crackles B/L bases ASSESSMENT AND PLAN: 58yo M with PMH DM, HTN, CAD s/p 2 stents, L4/L5 vertebral OM, PVD presented to the ER after his checked his sugar and found it to be "0" was given d50 x1 and food with resolution, also noted to be HTN urgency. 1. symptomatic hypoglycemia- noted to be 45 on arrival here and currently 135. symptoms have resolved. states he did not take his insulin yesterday however he was not discharged on insulin, also confusion on his glipizide dose. will need to wait for to arrive to see what exact medications he is being given. last A1c 4.5 on 09/25 and may need to hold all hypoglycemic medications going forward. cont BGM monitoring 2. HTN urgency- also appears might have been giving different medications since last hospitalization. will need to verify. cont last hospitalization antihypertensives 3. hypothermia- due to hypoglycemia. resolved 4. Acute transaminitis- hepatitis panel on last hospitalization was negative. liver u/s pending. trend 5. CKD- improved since last hospitalization. plan for renal bx possibly tomorrow , was to f/u with nephrology as outpatient. hold asa/plavix pending this 6. CAD s/p stents- cont ranexa/statin. asa and plavix on hold pending bx 7. hx of L4L5 vertebral OM 8. DVT ppx- hep sq 9. d/c planning in next 24-48H
[2018-10-11] MEDS: INSULIN SLIDING SCALE (NOVOLOG) 1 VIAL SQ SCH ×2 (11:07→16:39)
--- NOTE | 2018-10-11 17:58 | EKG ---
Test Reason : Blood Pressure : / mmHG Vent. Rate : 074 BPM Atrial Rate : 074 BPM P-R Int : 150 ms QRS Dur : 068 ms QT Int : 348 ms P-R-T Axes : 034 005 -05 degrees QTc Int : 386 ms NORMAL SINUS RHYTHM ANTEROSEPTAL INFARCT (CITED ON OR BEFORE 25-SEP-2018) ABNORMAL ECG WHEN COMPARED WITH ECG OF 25-SEP-2018 13:10, QT HAS SHORTENED Confirmed by NINFA FLORES, SHIMA ([id number]) on 10/11/2018 5:58:03 PM Referred By: Confirmed By:SHIMA OCASIO MD
[2018-10-11 19:27] VITALS: BP 134/68; PULSE 79
[2018-10-11] MEDS ORDERED: ATORVASTATIN CA 40 MG TABLET (FP) PO SCH (22:00)
--- NOTE | 2018-10-12 08:43 | DS ---
Physical Exam: LABS Laboratory Results - last 24 hr 10/11/18 10/11/18 11:05 16:38 POC Glucometer 81 125 HOSPITAL COURSE: Date of Admission:10/11/18 Date of Discharge: 10/12/18 admitting diagnosis: Symptomatic hypoglycemia, hypothermia, transaminitis, HTN urgency pre hospital course 58 year old man with a history of HTN, hyperlipidemia, CAD with stents, chronic systolic heart failure, type 2 DM, stage 4 CKD with nephrotic range proteinuria , anemia who comes to the ED after his found him cold and slow to respond. She did a fingerstick and it was 0. She called EMS. He was treated with 2 amps of D25. On arrival to the ED, his fingerstick was 45, temperature was 93.1, and BP 206/101. He was treated with D50 x 1, he ate 2 sandwiches, and drank orange juice. For the BP, he was treated with Nitropaste 1", nitroglycerin SL x 2, and Diovan 80 mg. Currently he has no complaints. He says the last thing he remembers was eating soup and thinking he would later eat a chicken sandwich. He then became tired. He says he has been taking his medications and that his organizes them for him. He thinks he took glipizide this morning and afternoon and says he has not taken any insulin. SUbsequent hospital course Admitted to medicine. glucose was 45 on arrival and improve with eating staying in 80-100's. BP improved with home medications re-started. believed patient may have been following an old medication list as he also states he forgot his insulin that day however he was not discharged on insulin. advised pt should hold his hypoglycemics and monitor sugars over the next few days and follow up to see if they should be re-started. wanted to verify home list with however pt signed out AMA overnight. was counselled by overnight resident Minutes to complete discharge: 40 Discharge Summary Reason For Visit: HYPERGLYCEMIA,HYPOTHERMIA Current Active Problems Hypoglycemia (Acute) Hypothermia (Acute) Condition: Stable - Instructions - Home Medications Comprehensive Discharge Medication List: Ambulatory Orders Glipizide [Glucotrol] 5 mg PO BID 04/08/17 Atorvastatin Ca [Lipitor] 40 mg PO HS 09/25/18 Ergocalciferol (Vitamin D2) [Vitamin D2] 50,000 unit PO WEEKLY 09/25/18 Tamsulosin HCl [Flomax] 0.4 mg PO DAILY 09/25/18 Furosemide [Lasix -] 80 mg PO DAILY 30 Days #60 tablet 10/07/18 Labetalol HCl [Normodyne -] 300 mg PO BID 30 Days #180 tablet 10/07/18 hydrALAZINE HCL [Apresoline -] 50 mg PO TID 30 Days #90 tablet 10/07/18 Aspirin [Aspirin EC] 81 mg PO DAILY 10/11/18 Clopidogrel Bisulfate [Plavix -] 75 mg PO DAILY 10/11/18 Isosorbide Mononitrate [Imdur -] 30 mg PO DAILY 10/11/18 Losartan Potassium 50 mg PO DAILY 10/11/18 Nifedipine ER [Procardia XL -] 90 mg PO DAILY 10/11/18 Ranolazine [Ranexa -] 500 mg PO BID 10/11/18 This patient is new to me today: No Emergency Visit: Yes ED Registration Date: 10/11/18 Care time: The patient presented to the Emergency Department on the above date and was hospitalized for further evaluation of their emergent condition. Critical Care patient: No - Discharge Referral Referred to [facility] Med P.C.: No
== END 2018-10-11 22:14 | disposition left against medical advice (07) | DRG 420 ==
LOC: JER 20:38 → JERBED 22:44 → OBSVTOIN 10-11 02:15
PROVIDERS: ADMIT Internal Medicine; ATTEND Internal Medicine
DX: E11.649 Type 2 diabetes mellitus with hypoglycemia without coma (principal); N17.9 Acute kidney failure, unspecified; N18.4 Chronic kidney disease, stage 4 (severe); I13.0 Hypertensive heart and chronic kidney disease with heart failure and stage 1 through stage 4 chronic kidney disease, or unspecified chronic kidney disease; I50.22 Chronic systolic (congestive) heart failure; I42.9 Cardiomyopathy, unspecified; E11.22 Type 2 diabetes mellitus with diabetic chronic kidney disease; Z79.4 Long term (current) use of insulin; I16.0 Hypertensive urgency; D63.1 Anemia in chronic kidney disease; R68.0 Hypothermia, not associated with low environmental temperature; E11.65 Type 2 diabetes mellitus with hyperglycemia; E78.5 Hyperlipidemia, unspecified; I25.10 Atherosclerotic heart disease of native coronary artery without angina pectoris; Z95.5 Presence of coronary angioplasty implant and graft; Z89.412 Acquired absence of left great toe; R74.0 Nonspecific elevation of levels of transaminase and lactic acid dehydrogenase [LDH]; I73.9 Peripheral vascular disease, unspecified
CPT/HCPCS: 36415; 71045-TC-FY; 76705-TC; 80053; 82962; 83516; 83735; 83880; 84100; 85025; 85027; 93005; 93010; 99285-25; G0378; J1644

== ENCOUNTER 2018-10-26 08:58 | Inpatient (IN) | payer OTHER ==
[2018-10-26] MEDS ORDERED: FUROSEMIDE 40 MG/4 ML INJECTABLE VIAL IVPUSH ONE (10:13)
--- NOTE | 2018-10-26 10:20 | PDOC ---
History of Present Illness - General Chief Complaint: Edema Stated Complaint: WATER RETENTION Time Seen by Provider: 10/26/18 09:32 History Source: Patient, Family Exam Limitations: No Limitations - History of Present Illness Initial Comments: 10/26/18 10:16 HPI 58 year old man with a history of HTN, hyperlipidemia, CAD with stents, chronic systolic heart failure, type 2 DM, stage 4 CKD with nephrotic range proteinuria , anemia who comes to the ED with 2-3 week history of progressively worsening edema throughout the body, a/w dyspnea on exertion and orthopnea. He recently saw his PMD 3 days ago 10/23/18, at that time had his lasix increased from 40mg BID up to 80mg BID. He is also awaiting a kidney biopsy due to his progressive CKD, was off his ASA and glimepride x 1 week, but resumed over 1 day due to inability to be scheduled for procedure yet. Allergies: None Past Medical History: see HPI Social history: Lives with family. No tobacco, ETOH or drug use. Former smoker Surgical history: toe amputation Meds: as documented in EMR PMD: Dr Brooks Cards: Dr Perez Review of systems Constitutional: no fevers or chills. +weakness HEENT: no headache or dizziness. No visual/hearing disturbances. CVS: no cp or syncope. +peripheral edema Resp: +SOB, orthopnea and cough. Gastrointestinal: no abdominal pain, nausea or vomiting. MUSCULOSKELETAL: No joint pain and swelling. No neck or back pain. SKIN: no redness or skin changes, no discharge, no rash. No wounds. Hematologic: no easy bruising/bleeding. NEUROLOGIC: No headache, dizziness, LOC or altered mental status. No weakness, numbness or tingling. Endocrine: no hyperglycemia or hypoglycemia. Allergic/Immunologic: no allergies All other systems reviewed and negative, or as documented in HPI. Physical exam: General: Well appearing, awake and alert, NAD. HEENT: NCAT, PERRL, EOMI, clear conjunctiva, anicteric, clear oropharynx, no oral lesions.. Neck: neck supple, FROM. +JVD Resp: diminished breath sounds at bases, +bibasilar crackles, left>right CVS: RRR, no murmurs, 2+ peripheral pulses throughout, 4+bilateral peripheral edema and Anasarca up to abdomen and chest wall Abdomen: soft, protuberant abdomen, pitting edema; nontender. Back: nontender, normal inspection and ROM MSK: MIRANDA x4, ROM intact. No clubbing or cyanosis. normal bulk and tone. + peripheral edema throughout. Neuro: alert, no focal neuro deficits. Skin: warm and well perfused, cap refill <2 sec, normal color Past History - Past Medical History Allergies/Adverse Reactions: Allergies Allergy/AdvReac Type Severity Reaction Status Date / Time No Known Allergies Allergy Verified 10/26/18 09:08 Home Medications: Ambulatory Orders Glipizide [Glucotrol] 5 mg PO BID 04/08/17 Atorvastatin Ca [Lipitor] 40 mg PO HS 09/25/18 Ergocalciferol (Vitamin D2) [Vitamin D2] 50,000 unit PO WEEKLY 09/25/18 Tamsulosin HCl [Flomax] 0.4 mg PO DAILY 09/25/18 Furosemide [Lasix -] 80 mg PO DAILY 30 Days #60 tablet 10/07/18 Labetalol HCl [Normodyne -] 300 mg PO BID 30 Days #180 tablet 10/07/18 hydrALAZINE HCL [Apresoline -] 50 mg PO TID 30 Days #90 tablet 10/07/18 Aspirin [Aspirin EC] 81 mg PO DAILY 10/11/18 Clopidogrel Bisulfate [Plavix -] 75 mg PO DAILY 10/11/18 Isosorbide Mononitrate [Imdur -] 30 mg PO DAILY 10/11/18 Losartan Potassium 50 mg PO DAILY 10/11/18 Nifedipine ER [Procardia XL -] 90 mg PO DAILY 10/11/18 Ranolazine [Ranexa -] 500 mg PO BID 10/11/18 Anemia: No Asthma: No Cancer: No Cardiac Disorders: Yes (STENT X2) CVA: No COPD: No CHF: No Dementia: No Diabetes: Yes GI Disorders: No Disorders: No HTN: Yes Hypercholesterolemia: Yes Liver Disease: No Seizures: No Thyroid Disease: No - Surgical History Cardiac Surgery: Yes (STENT X2) Orthopedic Surgery: Yes - Immunization History Immunization Up to Date: Yes - Suicide/Smoking/Psychosocial Hx Smoking History: Never smoked Have you smoked in the past 12 months: No Information on smoking cessation initiated: No Hx Alcohol Use: No Drug/Substance Use Hx: No Substance Use Type: None Hx Substance Use Treatment: No *Physical Exam - Vital Signs Last Vital Signs Temp Pulse Resp BP Pulse Ox 98.5 F 82 17 186/97 H 95 10/26/18 09:08 10/26/18 09:08 10/26/18 09:08 10/26/18 09:08 10/26/18 09:08 Procedures - Bedside Ultrasound Bedside Ultrasound: Cardiac Remarks: 10/26/18 10:17 POCUS echo and thoracic exam performed and documented/saved, indication includes dyspnea. views obtained (PSLA, PSS, A4, SX, bilateral lung balderas and thorax). Findings include moderately depressed EF on visual estimation, +trace pericardial effusion, +bilateral Large lung effusions with spine signs. + bilateral B lines diffusely, >3 in one lung field. bilateral lung sliding, no PTX. Normal aortic root <4cm. RV<LV. 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 Heart Score/ECG Review #1 ECG reviewed & interpreted by me at: 09:15 General ECG Interpretation: Sinus Rhythm, Normal Rate, Normal Intervals Compared to previous ECG there are: No significant change 10/26/18 10:22 EKG normal sinus rhythm at 82 bpm, no interval abnormalities, narrow QRS, ST and T wave segments and morphology normal. Nonspecific T wave abnormalities, low voltage waves, similar to prior ED Treatment Course - LABORATORY CBC & Chemistry Diagram: 10/26/18 09:50 10/26/18 09:50 - RADIOLOGY Radiology Studies Ordered: Category Date Time Status CHEST X-RAY PORTABLE* [RAD] Stat Radiology 10/26/18 09:28 Taken Medical Decision Making - Medical Decision Making 10/26/18 10:20 See HPI for details Vital signs reviewed, wnl. mildly hypertensive, did not take AM meds no hypoxia, no overt respiratory distress. DDx SOB: ACS, PE, PTX, CHF, pulmonary edema, pleurisy, pneumonia, viral syndrome. pericardial effusion, pleural effusions. anemia, electrolyte/ metabolic derangements. Prior notes reviewed, including admissions, discharges and consultations. laboratory results and imaging reviewed, basic labs and lytes wnl, baseline anemia, no changes. Cr at baseline at 2.4, c/w CKD. Cardiac panel_neg trop, but BNP persistently elevated, doubled from prior. nonspecific, but trended, clinically with CHF exac with limited echo/thoracic examination EKG normal sinus rhythm at 82 bpm, no interval abnormalities, narrow QRS, ST and T wave segments and morphology normal. Nonspecific T wave abnormalities, low voltage waves, similar to prior ED course -POCUS echo and thoracic exam, see procedure note: bilateral AIS with large pleural effusions, moderately depressed EF on visual estimation. similar findings to prior echo on 09/28/18 -Lasix 80mg IV x1 for diuresis - cards cs with Dr Perez group for CHF management dispo: admit telemetry for diuresis, CHF exacerbation and pleural effusions. admit to hospitalist service. spoke and s/o to Dr Mcmanus 10/26/18 11:47 *DC/Admit/Observation/Transfer Diagnosis at time of Disposition: Pleural effusion, bilateral CHF (congestive heart failure) Qualifiers: Heart failure type: systolic Heart failure chronicity: acute on chronic Qualified Code(s): I50.23 - Acute on chronic systolic (congestive) heart failure - Discharge Dispostion Condition at time of disposition: Guarded Decision to Admit order: Yes Decision to Admit order Date/Time: 10/26/18 11:40 Decision to Admit Order Category Date Time Status Decision to Admit to Hospital Routine Admission 10/26/18 11:39 Ordered - Referrals Referrals: Waldemar Eid MD [Primary Care Provider] - - Patient Instructions - Post Discharge Activity
[2018-10-26] MEDS ORDERED: FUROSEMIDE 40 MG/4 ML INJECTABLE VIAL ONE (10:28)
[2018-10-26 10:33] LABS: BASO % 1.2 % (0-2.0); EOS % 2.7 % (0-4.5); HEMATOCRIT 26.5 % (35.4-49); HEMOGLOBIN 8.7 GM/dL (11.7-16.9); LYMPH % 24.2 % (8-40); MCH 28.6 pg (25.7-33.7); MCHC 32.7 g/dl (32.0-35.9); MEAN CELL VOLUME 87.4 fl (80-96); MEAN PLT VOLUME 7.2 fl (7.5-11.1); MONO % 8.9 % (3.8-10.2); PLATELET COUNT 281 K/MM3 (134-434); RBC 3.03 M/mm3 (4.00-5.60); RDW 14.9 % (11.9-15.9); WHITE BLOOD COUNT 4.9 K/mm3 (4.0-10.0)
[2018-10-26 11:00] LABS: N-TERMINAL BNP 27823.9 pg/ml (5-125)
[2018-10-26 11:13] LABS: ALBUMIN 2.3 g/dl (3.4-5.0); ALK PHOS 137 U/L (45-117); ANION GAP 6 MMOL/L (8-16); BILIRUBIN,TOTAL 0.3 mg/dL (0.2-1); BLOOD UREA NITROGEN 46 mg/dL (7-18); CHLORIDE 109 mmol/L (98-107); CO2 26 mmol/L (21-32); CREATININE 2.4 mg/dL (0.55-1.3); GLUCOSE,RANDOM 158 mg/dL (74-106); POTASSIUM 4.1 mmol/L (3.5-5.1); SGOT/AST 29 U/L (15-37); SGPT/ALT 39 U/L (13-61); SODIUM 142 mmol/L (136-145); TOT PROT 6.5 g/dl (6.4-8.2)
[2018-10-26 11:16] LABS: INR 1.27 (0.83-1.09)
--- NOTE | 2018-10-26 11:53 | HP ---
Admitting History and Physical - Primary Care Physician PCP: Waldemar Eid - Admission Chief Complaint: SOB and anasarca History of Present Illness: 58 year old man with a history of HTN, hyperlipidemia, CAD with stents, chronic systolic heart failure, type 2 DM, stage 4 CKD with nephrotic range proteinuria , anemia, recently DC home on 10/12/2017 after optimizing his Glyceic control, patient was admitted with uncontrolled HTN and Symptomatic Hypoglycemia with hypothermia, post discharge patient developed gradually worsening LE swelling, SOB , PND and orthopnea, visited his PMD on last Friday, patient Lasix dose was doubled but remained symptomatic so today came to Ed for evaluation , in the Ed volume over loaded SOB, denies fever, chills, w/u shows elevated BNP and CXr shows Pleral effusion, recived IV lasix 80 mg and being admitted for further management. 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 Cardiovascular: Yes: HTN, Other (PAD) Endocrine: Yes: Diabetes Mellitus - Smoking History Smoking history: Never smoked Have you smoked in the past 12 months: No - Alcohol/Substance Use Hx Alcohol Use: No History of Substance Use: reports: None - Social History 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 Home Medications - Allergies Allergies/Adverse Reactions: Allergies Allergy/AdvReac Type Severity Reaction Status Date / Time No Known Allergies Allergy Verified 10/26/18 09:08 - Home Medications Home Medications: Ambulatory Orders Glipizide [Glucotrol] 5 mg PO BID 04/08/17 Atorvastatin Ca [Lipitor] 40 mg PO HS 09/25/18 Ergocalciferol (Vitamin D2) [Vitamin D2] 50,000 unit PO WEEKLY 09/25/18 Tamsulosin HCl [Flomax] 0.4 mg PO DAILY 09/25/18 Furosemide [Lasix -] 80 mg PO DAILY 30 Days #60 tablet 10/07/18 Labetalol HCl [Normodyne -] 300 mg PO BID 30 Days #180 tablet 10/07/18 hydrALAZINE HCL [Apresoline -] 50 mg PO TID 30 Days #90 tablet 10/07/18 Aspirin [Aspirin EC] 81 mg PO DAILY 10/11/18 Clopidogrel Bisulfate [Plavix -] 75 mg PO DAILY 10/11/18 Isosorbide Mononitrate [Imdur -] 30 mg PO DAILY 10/11/18 Losartan Potassium 50 mg PO DAILY 10/11/18 Nifedipine ER [Procardia XL -] 90 mg PO DAILY 10/11/18 Ranolazine [Ranexa -] 500 mg PO BID 10/11/18 Family Disease History - Family Disease History Family History: Unremarkable Physical Examination Vital Signs: Vital Signs Temperature 98.5 F 10/26/18 09:08 Pulse Rate 78 10/26/18 09:30 Respiratory Rate 17 10/26/18 09:08 Blood Pressure 186/97 H 10/26/18 09:08 O2 Sat by Pulse Oximetry (%) 96 10/26/18 10:00 Findings/Remarks: Elderly man c/p SOB HEENT: Mm moist, mild anemia NECK: JVD +, no Bruit CHEST: B/l decrese AE and Crepts CVS: S1S2 R no murmur ABD: Obese abd wall edema EXT: +2 edema feet 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 non focal Labs: CBC, BMP 10/26/18 09:50 10/26/18 09:50 CBC,CMP WBC 4.9 K/mm3 (4.0-10.0) 10/26/18 09:50 RBC 3.03 M/mm3 (4.00-5.60) L 10/26/18 09:50 Hgb 8.7 GM/dL (11.7-16.9) L 10/26/18 09:50 Hct 26.5 % (35.4-49) L 10/26/18 09:50 MCV 87.4 fl (80-96) 10/26/18 09:50 MCH 28.6 pg (25.7-33.7) 10/26/18 09:50 MCHC 32.7 g/dl (32.0-35.9) 10/26/18 09:50 RDW 14.9 % (11.9-15.9) 10/26/18 09:50 Plt Count 281 K/MM3 (134-434) 10/26/18 09:50 MPV 7.2 fl (7.5-11.1) L 10/26/18 09:50 Absolute Neuts (auto) 3.1 K/mm3 (1.5-8.0) 10/26/18 09:50 Neutrophils % 63.0 % (42.8-82.8) 10/26/18 09:50 Lymphocytes % 24.2 % (8-40) D 10/26/18 09:50 Monocytes % 8.9 % (3.8-10.2) 10/26/18 09:50 Eosinophils % 2.7 % (0-4.5) 10/26/18 09:50 Basophils % 1.2 % (0-2.0) 10/26/18 09:50 Nucleated RBC % 0 % (0-0) 10/26/18 09:50 Sodium 142 mmol/L (136-145) 10/26/18 09:50 Potassium 4.1 mmol/L (3.5-5.1) 10/26/18 09:50 Chloride 109 mmol/L (98-107) H 10/26/18 09:50 Carbon Dioxide 26 mmol/L (21-32) 10/26/18 09:50 Anion Gap 6 MMOL/L (8-16) L 10/26/18 09:50 BUN 46 mg/dL (7-18) H 10/26/18 09:50 Creatinine 2.4 mg/dL (0.55-1.3) H 10/26/18 09:50 Creat Clearance w eGFR 28.04 (>60) 10/26/18 09:50 Random Glucose 158 mg/dL (74-106) H 10/26/18 09:50 Calcium 8.0 mg/dL (8.5-10.1) L 10/26/18 09:50 Total Bilirubin 0.3 mg/dL (0.2-1) 10/26/18 09:50 AST 29 U/L (15-37) 10/26/18 09:50 ALT 39 U/L (13-61) 10/26/18 09:50 Alkaline Phosphatase 137 U/L (45-117) H 10/26/18 09:50 Troponin I 0.04 ng/ml (0.00-0.05) 10/26/18 09:50 B-Natriuretic Peptide 29085.9 pg/ml (5-125) H 10/26/18 09:50 Total Protein 6.5 g/dl (6.4-8.2) 10/26/18 09:50 Albumin 2.3 g/dl (3.4-5.0) L 10/26/18 09:50 Imaging - Results Chest X-ray: Report Reviewed (PLeural effusion cardiolmegaly) EKG: Report Reviewed (NSr no acute St t changes) Problem List - Problems (1) Heart failure, diastolic, with acute decompensation Assessment/Plan: Resume all home meds reciived IV Lasix 80 mg will observe IP/Op chart, BMP, Mag level, Daily wt, cardiology consult am Lasix 40 mg BID, Nephrology consuli. Code(s): I50.33 - ACUTE ON CHRONIC DIASTOLIC (CONGESTIVE) HEART FAILURE (2) Pleural effusion, bilateral Assessment/Plan: Due to CHF O2 inhalation IV Lasix rpt CXR after few days Code(s): J90 - PLEURAL EFFUSION, NOT ELSEWHERE CLASSIFIED (3) Type 2 diabetes mellitus with diabetic neuropathy, unspecified Assessment/Plan: Cont correction dose insulin Code(s): E11.40 - TYPE 2 DIABETES MELLITUS WITH DIABETIC NEUROPATHY, UNSP (4) Hypertension Assessment/Plan: Low salt Diet on Labetalol, BNifedipoine, hydralazine will cont sme. Code(s): I10 - ESSENTIAL (PRIMARY) HYPERTENSION Qualifiers: (5) CAD (coronary artery disease) Assessment/Plan: S/P CABG asymptomatic resume ASA, Plavix, Labetalol , Imdur Code(s): I25.10 - ATHSCL HEART DISEASE OF [place] CORONARY ARTERY W/O ANG PCTRS (6) CKD (chronic kidney disease) stage 4, GFR 15-29 ml/min Assessment/Plan: Most likely Diabetic nephropathy, ptroteinuria will F/U Nephrology consult. Code(s): N18.4 - CHRONIC KIDNEY DISEASE, STAGE 4 (SEVERE)
--- NOTE | 2018-10-26 14:57 | CON.CARD ---
Cardiology Consult (text) - Consultation Consultation Note: Consult Consult Specialty:: Cardiology Referred by:: Medicine Reason for Consultation:: CHF - History of Present Illness Chief Complaint: shortness of breath History of Present Illness: 58M h/o DM, HTN, HLD, CAD s/p stents x2 in 2017 p/w dyspnea. Sees Dr. Perez for cardio. Recently admitted for CHF exacerbation, was diuresed with IV lasix. Now with 2-3 week worsening edema, short of breath, orthopnea. Lasix was increased from 40 mg BID to 80 mg BID on 10/23, symptoms didn't improve. Received IV lasix in the ER Home Medications - Allergies Allergies/Adverse Reactions: Allergies Allergy/AdvReac Type Severity Reaction Status Date / Time No Known Allergies Allergy Verified 10/26/18 09:08 Ambulatory Orders Glipizide [Glucotrol] 5 mg PO BID 04/08/17 Atorvastatin Ca [Lipitor] 40 mg PO HS 09/25/18 Ergocalciferol (Vitamin D2) [Vitamin D2] 50,000 unit PO WEEKLY 09/25/18 Tamsulosin HCl [Flomax] 0.4 mg PO DAILY 09/25/18 Furosemide [Lasix -] 80 mg PO DAILY 30 Days #60 tablet 10/07/18 Labetalol HCl [Normodyne -] 300 mg PO BID 30 Days #180 tablet 10/07/18 hydrALAZINE HCL [Apresoline -] 50 mg PO TID 30 Days #90 tablet 10/07/18 Aspirin [Aspirin EC] 81 mg PO DAILY 10/11/18 Clopidogrel Bisulfate [Plavix -] 75 mg PO DAILY 10/11/18 Isosorbide Mononitrate [Imdur -] 30 mg PO DAILY 10/11/18 Losartan Potassium 50 mg PO DAILY 10/11/18 Nifedipine ER [Procardia XL -] 90 mg PO DAILY 10/11/18 Ranolazine [Ranexa -] 500 mg PO BID 10/11/18 Family Disease History - Family Disease History Family History: Unremarkable Review of Systems - Review of Systems Constitutional: reports: No Symptoms Eyes: reports: No Symptoms HENT: reports: No Symptoms Neck: reports: No Symptoms Cardiovascular: reports: No Symptoms Respiratory: reports: No Symptoms Gastrointestinal: reports: No Symptoms Genitourinary: reports: No Symptoms Musculoskeletal: reports: No Symptoms Integumentary: reports: No Symptoms Neurological: reports: No Symptoms Endocrine: reports: No Symptoms Hematology/Lymphatic: reports: No Symptoms Psychiatric: reports: No Symptoms Vital Signs Period Temp Pulse Resp BP Sys/Lopez Pulse Ox Last 24 Hr 98.5 F 78-82 17-20 186-190/94-97 95-96 Constitutional: Yes: Well Nourished, No Distress, Calm Eyes: Yes: Conjunctiva Clear, EOM Intact HENT: Yes: Atraumatic, Normocephalic Neck: Yes: Supple, Trachea Midline Respiratory: Yes: Regular, diminished at bases bilaterally Gastrointestinal: Yes: Normal Bowel Sounds, Soft Cardiovascular: Yes: Regular Rate and Rhythm JVD: yes Carotid Bruit: No PMI: Non-Displaced Heart Sounds: Yes: S1, S2 Musculoskeletal: No: Back Pain Extremities: No: Cold Edema: Yes Edema: LLE: 3+, RLE: 3+ Peripheral Pulses WNL: Yes Peripheral Pulses: 2+ Left Doralis Pedis, 2+ Right Dorsalis Pedis Integumentary: No: Jaundice Neurological: Yes: Alert, Oriented Psychiatric: No: Agitated Assessment/Plan [facility] 10/2017 planned staged PCI of mid LAD [facility] 09/2017 (for inf ischemia on MPI) mild RCA, 80-90% LCx s/p FER, 70-80% mLAD. EDP 25->15 post nitro, EF 50% Echo 05/2018 mildly dilated LV, mild conc LVH, with discrete upper septal component, overal nl LV function EF 55%LA pressure uncertain, no RWMA,nl RV, mild MR, at least mild pulm HTN, mild MRRVSP at least 48 mmHg echo 09/2018 nl LV size, mild to mod reduced LV function EF 40-45%, RV nl, nl biatrial size, mild MR, mild to mod TR, mild ao sclerosis, trivial pericardial effusion, lg pleural effusion CXR: congestive changes Acute systolic HF exacerbation - EF 40-45% - recently discharged on lasix 80 mg daily, last weight 283 - on labetolol, not on ACEI/ARB for CKD - continue hydralzine and imdur - continue lasix 80 mg IV BID CKD - was planned for outpatient kidney biopsy, not done yet - Cr 2.4, improved from 2.8 on discharge 10/11 CAD - s/p FER most recently 09/2017, 10/2017 - on aspirin and plavix, continue HTN - BP elevated - restart home meds - not received yet, monitor BP and uptitrate as tolerated pulm HTN - mild on echo, likely due to diastolic dysfunction cerebral atherosclerosis - LICA plaque noted 2016 - on aspirin, plavix, statin PAD - hx L SFA stent, 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
[2018-10-26] MEDS: ERGOCALCIFEROL (VITAMIN D2) 50,000 UNIT CAPSULE (FP) PO SCH (16:12)
[2018-10-26] MEDS: hydrALAZINE HCL 50 MG TABLET (FP) PO SCH (16:12)
[2018-10-26] MEDS: INSULIN SLIDING SCALE (NOVOLOG) 1 VIAL SQ SCH (18:43)
[2018-10-26] MEDS ORDERED: hydrALAZINE HCL 25 MG TABLET (FP) ONE (23:26)
[2018-10-26] MEDS ORDERED: LABETALOL HCL 100 MG TABLET (FP) ONE (23:26)
[2018-10-27] MEDS: hydrALAZINE HCL 50 MG TABLET (FP) PO SCH ×4 (01:34→22:24)
[2018-10-27] MEDS: RANOLAZINE E.R. 500 MG TABLET (FP) PO SCH ×3 (01:34→22:24)
[2018-10-27] MEDS: LABETALOL HCL 100 MG TABLET (FP) PO SCH ×3 (01:34→22:24)
[2018-10-27 06:13] LABS: BASO % 0.8 % (0-2.0); EOS % 2.7 % (0-4.5); HEMATOCRIT 25.3 % (35.4-49); HEMOGLOBIN 8.3 GM/dL (11.7-16.9); LYMPH % 19.1 % (8-40); MCH 28.4 pg (25.7-33.7); MCHC 32.6 g/dl (32.0-35.9); MEAN CELL VOLUME 87.1 fl (80-96); MEAN PLT VOLUME 7.2 fl (7.5-11.1); MONO % 9.6 % (3.8-10.2); NEUT % 67.8 % (42.8-82.8); PLATELET COUNT 264 K/MM3 (134-434); RBC 2.91 M/mm3 (4.00-5.60); RDW 15.3 % (11.9-15.9)
[2018-10-27] MEDS ORDERED: hydrALAZINE HCL 25 MG TABLET (FP) ONE (06:21)
[2018-10-27] MEDS ORDERED: FUROSEMIDE 40 MG/4 ML INJECTABLE VIAL ONE (06:22)
[2018-10-27] MEDS: FUROSEMIDE 40 MG/4 ML INJECTABLE VIAL IVPB SCH ×2 (06:28→14:19)
[2018-10-27 06:46] LABS: ANION GAP 8 MMOL/L (8-16); BLOOD UREA NITROGEN 51 mg/dL (7-18); CALCIUM 7.8 mg/dL (8.5-10.1); CHLORIDE 111 mmol/L (98-107); CO2 26 mmol/L (21-32); CREATININE 2.6 mg/dL (0.55-1.3); GLUCOSE,RANDOM 132 mg/dL (74-106); MAGNESIUM 1.8 mg/dL (1.8-2.4); POTASSIUM 3.8 mmol/L (3.5-5.1); SODIUM 145 mmol/L (136-145)
[2018-10-27] MEDS: INSULIN SLIDING SCALE (NOVOLOG) 1 VIAL SQ SCH ×3 (08:10→17:31)
[2018-10-27] MEDS: TAMSULOSIN HCL 0.4 MG CAP PO SCH (09:00)
--- NOTE | 2018-10-27 09:19 | PN ---
Progress Note (short form) - Note Progress Note: s: sob improving. no chest pain, palps, dizziness. Current Medications Aspirin (Ecotrin -) 81 mg PO DAILY [facility] Clopidogrel Bisulfate (Plavix -) 75 mg PO DAILY [facility] Ergocalciferol (Drisdol -) 50,000 unit PO Mo [facility] Last Admin: 10/26/18 16:12 Dose: 50,000 unit Furosemide (Lasix Injection -) 80 mg IVPB BID@0600,1400 [facility] Last Admin: 10/27/18 06:28 Dose: 80 mg Hydralazine HCl (Apresoline -) 50 mg PO TID [facility] Last Admin: 10/27/18 06:28 Dose: 50 mg Insulin Aspart (Novolog Vial Sliding Scale -) 1 vial SQ TIDAC [facility]; Protocol Last Admin: 10/27/18 08:10 Dose: Not Given Isosorbide Mononitrate (Imdur -) 30 mg PO DAILY [facility] Labetalol HCl (Normodyne -) 300 mg PO BID [facility] Last Admin: 10/27/18 01:34 Dose: 300 mg Nifedipine (Procardia Xl -) 90 mg PO DAILY [facility] Ranolazine (Ranexa -) 500 mg PO BID [facility] Last Admin: 10/27/18 01:34 Dose: 500 mg Tamsulosin HCl (Flomax -) 0.4 mg PO 0830 [facility] Vital Signs Period Temp Pulse Resp BP Sys/Lopez Pulse Ox Last 24 Hr 98.5 F 78-82 17-20 186-190/94-97 95-96 Constitutional: Yes: Well Nourished, No Distress, Calm Eyes: Yes: Conjunctiva Clear, EOM Intact HENT: Yes: Atraumatic, Normocephalic Neck: Yes: Supple, Trachea Midline Respiratory: Yes: Regular, diminished at bases bilaterally Gastrointestinal: Yes: Normal Bowel Sounds, Soft Cardiovascular: Yes: Regular Rate and Rhythm JVD: yes Carotid Bruit: No PMI: Non-Displaced Heart Sounds: Yes: S1, S2 Musculoskeletal: No: Back Pain Extremities: No: Cold Edema: Yes Edema: LLE: 3+, RLE: 3+ Peripheral Pulses WNL: Yes Peripheral Pulses: 2+ Left Doralis Pedis, 2+ Right Dorsalis Pedis Integumentary: No: Jaundice Neurological: Yes: Alert, Oriented Psychiatric: No: Agitated Assessment/Plan [facility] 10/2017 planned staged PCI of mid LAD [facility] 09/2017 (for inf ischemia on MPI) mild RCA, 80-90% LCx s/p FER, 70-80% mLAD. EDP 25->15 post nitro, EF 50% Echo 05/2018 mildly dilated LV, mild conc LVH, with discrete upper septal component, overal nl LV function EF 55%LA pressure uncertain, no RWMA,nl RV, mild MR, at least mild pulm HTN, mild MRRVSP at least 48 mmHg echo 09/2018 nl LV size, mild to mod reduced LV function EF 40-45%, RV nl, nl biatrial size, mild MR, mild to mod TR, mild ao sclerosis, trivial pericardial effusion, lg pleural effusion CXR: congestive changes Acute systolic HF exacerbation - EF 40-45% - recently discharged on lasix 80 mg daily, last weight 283 - cont labetolol, not on ACEI/ARB for CKD - continue hydralzine and imdur - continue lasix 80 mg IV BID. monitor Cr, lytes, daily standing weights CKD - was planned for outpatient kidney biopsy, not done yet - Cr 2.4 on admission, improved from 2.8 on discharge 10/11 - renal consulted CAD - s/p FER most recently 09/2017, 10/2017 - on aspirin and plavix, continue HTN - BP elevated - has not received all home meds, ordered for this AM -monitor BP and uptitrate as tolerated pulm HTN - mild on echo, likely due to diastolic dysfunction cerebral atherosclerosis - LICA plaque noted 2016 - on aspirin, plavix, statin PAD - hx L SFA stent, [employer] of left 2016 - aspirin, statin, plavix HLD - cont statin DM - manage per primary
[2018-10-27] MEDS: ISOSORBIDE MONONITRATE 30 MG TAB.SR.24H (FP) PO SCH (10:52)
[2018-10-27] MEDS: ASPIRIN COATED 81 MG TABLET.EC PO SCH (10:52)
[2018-10-27] MEDS: NIFEdipine E.R. 90 MG TABLET (FP) PO SCH (10:52)
[2018-10-27] MEDS: CLOPIDOGREL BISULFATE 75 MG TABLET (FP) PO SCH (10:52)
--- NOTE | 2018-10-27 11:34 | CONSULT ---
Consult - text type - Consultation Consultation Note: Renal consult for GABI/CKD This is a 58 year old gentleman with hx of CKD with proteinuria , CHF, CAD s/p PCI, Hypertension, hyperlipidemia who preesnted from home with LE swelling and sob and admitted for CHF exacerbation with Cr of 2.4-2.6. Pt s/ p recent hospital admission during which time Cr peaked at 4.4 but improved gradually with Lasix. Pt was planned to have a renal biopsy as an outpatient but did not get on IR schedule the week after he got discharged and now is back on ASA and Plavix. He was seen in our office on 10/12, weight was 131kg at that time. His Lasix was increased to 80mg BID. He missed his last appointment. Pt reports feeling better today. Has UE swelling as well. No fever, chills, chest pain, abd pain, N/V/D, confusion, lethargy or weakness. PMhx: as above Allergies: NKDA Family hx: NC Social Hx: No T/A/D ROS: as per HPI, all other pertinent ros negative Vital Signs Temperature 98.0 F 10/27/18 07:12 Pulse Rate 75 10/27/18 10:55 Respiratory Rate 18 10/27/18 10:55 Blood Pressure 187/95 H 10/27/18 10:55 O2 Sat by Pulse Oximetry (%) 97 10/27/18 10:55 Intake & Output 10/24/18 10/25/18 10/26/18 10/27/18 23:59 23:59 23:59 23:59 Output Total 300 Balance -300 Weight 108.862 kg NAD awake and alert neck supple, no JVD RRR, no M/R Dec BS at lung bases, no ovet rales soft obese, NT/ND ++ Left UE edema ++ bilateral LE edema no bladder distension CBC, BMP 10/27/18 05:20 10/27/18 05:20 Laboratory Tests 09/30/18 09/30/18 09/30/18 15:02 15:02 15:02 MCV Calcium Phosphorus Magnesium B-Natriuretic Peptide Albumin Urine Protein 3+ H Urine Glucose (UA) 1+ H Urine Eosinophils Pending U Random Total Protein Ur Random Urea Nitrogn Urine Creatinine 128.0 09/30/18 09/30/18 10/02/18 15:02 15:02 05:30 MCV Calcium 7.6 L Phosphorus 4.4 Magnesium 1.6 L B-Natriuretic Peptide Albumin Urine Protein Urine Glucose (UA) Urine Eosinophils U Random Total Protein 473.2 H Ur Random Urea Nitrogn 424 Urine Creatinine 10/26/18 10/26/18 10/27/18 09:50 09:50 05:20 MCV 87.1 Calcium Phosphorus Magnesium B-Natriuretic Peptide 79854.9 H Albumin 2.3 L Urine Protein Urine Glucose (UA) Urine Eosinophils U Random Total Protein Ur Random Urea Nitrogn Urine Creatinine 10/27/18 05:20 MCV Calcium 7.8 L Phosphorus Magnesium 1.8 B-Natriuretic Peptide Albumin Urine Protein Urine Glucose (UA) Urine Eosinophils U Random Total Protein Ur Random Urea Nitrogn Urine Creatinine Current Medications Aspirin (Ecotrin -) 81 mg PO DAILY [facility] Last Admin: 10/27/18 10:52 Dose: 81 mg Clopidogrel Bisulfate (Plavix -) 75 mg PO DAILY [facility] Last Admin: 10/27/18 10:52 Dose: 75 mg Ergocalciferol (Drisdol -) 50,000 unit PO Mo [facility] Last Admin: 10/26/18 16:12 Dose: 50,000 unit Furosemide (Lasix Injection -) 80 mg IVPB BID@0600,1400 [facility] Last Admin: 10/27/18 06:28 Dose: 80 mg Hydralazine HCl (Apresoline -) 50 mg PO TID [facility] Last Admin: 10/27/18 06:28 Dose: 50 mg Insulin Aspart (Novolog Vial Sliding Scale -) 1 vial SQ TIDAC [facility]; Protocol Last Admin: 10/27/18 10:52 Dose: Not Given Isosorbide Mononitrate (Imdur -) 30 mg PO DAILY [facility] Last Admin: 10/27/18 10:52 Dose: 30 mg Labetalol HCl (Normodyne -) 300 mg PO BID [facility] Last Admin: 10/27/18 10:52 Dose: 300 mg Nifedipine (Procardia Xl -) 90 mg PO DAILY [facility] Last Admin: 10/27/18 10:52 Dose: 90 mg Ranolazine (Ranexa -) 500 mg PO BID [facility] Last Admin: 10/27/18 10:52 Dose: 500 mg Tamsulosin HCl (Flomax -) 0.4 mg PO 0830 [facility] Last Admin: 10/27/18 09:00 Dose: 0.4 mg 58 year old gentleman with hx of CKD with proteinuria, CHF, CAD s/p PCI, Hypertension, hyperlipidemia who preesnted from home with LE swelling and sob and admitted for CHF exacerbation with Cr of 2.4-2.6. #CHF exacerbation #Upper extremity edema r/o DVT #CKD with proteinuria, recovering from GABI #CAD #HLD Renal function improved from hospital discharge. Check UA, UCPR, FeUrea. Continue IV Lasix 80mg IV daily, trend daily weights and urine output. Check Doppler of Upper extremities to r/o DVT Continue Nifedpine ER, Labetalol 300mg BID, Hydralazine. Titrate to acheive goal BP < 140/90 continue flomax Check iron studies, may need IV iron +/- RICHARD Thank you Mansoor Quiroz DO
--- NOTE | 2018-10-27 12:25 | PN ---
Progress Note, Physician Chief Complaint: Feels improved still c/o lower extermity swelling - Current Medication List Current Medications: Active Medications Aspirin (Ecotrin -) 81 mg PO DAILY [facility] BEDS AT [facility] Last Admin: 10/27/18 10:52 Dose: 81 mg Clopidogrel Bisulfate (Plavix -) 75 mg PO DAILY [facility]CLUDE 234 BEDS AT [facility] Last Admin: 10/27/18 10:52 Dose: 75 mg Ergocalciferol (Drisdol -) 50,000 unit PO Mo [facility] 234 BEDS AT [facility] Last Admin: 10/26/18 16:12 Dose: 50,000 unit Furosemide (Lasix Injection -) 80 mg IVPB BID@0600,1400 [facility]S [facility] 234 BEDS AT [facility] Last Admin: 10/27/18 06:28 Dose: 80 mg Hydralazine HCl (Apresoline -) 50 mg PO TID [facility] 234 BEDS AT [facility] Last Admin: 10/27/18 06:28 Dose: 50 mg Insulin Aspart (Novolog Vial Sliding Scale -) 1 vial SQ TIDAC [facility]S [facility] 234 BEDS AT [facility]; Protocol Last Admin: 10/27/18 10:52 Dose: Not Given Isosorbide Mononitrate (Imdur -) 30 mg PO DAILY [facility] 234 BEDS AT [facility] Last Admin: 10/27/18 10:52 Dose: 30 mg Labetalol HCl (Normodyne -) 300 mg PO BID [facility]S [facility]CLUDE 234 BEDS AT [facility] Last Admin: 10/27/18 10:52 Dose: 300 mg Nifedipine (Procardia Xl -) 90 mg PO DAILY [facility] 234 BEDS AT [facility] Last Admin: 10/27/18 10:52 Dose: 90 mg Ranolazine (Ranexa -) 500 mg PO BID [facility] 234 BEDS AT [facility] Last Admin: 10/27/18 10:52 Dose: 500 mg Tamsulosin HCl (Flomax -) 0.4 mg PO 0830 [facility]S [facility] 234 BEDS AT [facility] Last Admin: 10/27/18 09:00 Dose: 0.4 mg - Objective Vital Signs: Vital Signs Temperature 98.2 F 10/27/18 12:01 Pulse Rate 78 10/27/18 12:01 Respiratory Rate 20 10/27/18 12:18 Blood Pressure 187/107 H 10/27/18 12:01 O2 Sat by Pulse Oximetry (%) 97 10/27/18 12:18 Elderly man c/p SOB HEENT: Mm moist, mild anemia NECK: JVD +, no Bruit CHEST: B/l decrese AE and Crepts CVS: S1S2 R no murmur ABD: Obese abd wall edema EXT: +2 edema feet Left toe amputation STUDIO HAND: AOX3 non focal Labs: CBC, BMP 10/27/18 05:20 10/27/18 05:20 INR, PTT INR 1.27 (0.83-1.09) H 10/26/18 09:50 Problem List - Problems (1) Heart failure, diastolic, with acute decompensation Assessment/Plan: On IV Lasix 80 mg , improving will observe IP/Op chart, BMP, Mag level, Daily wt, cardiology consult , Nephrology consuli. Code(s): I50.33 - ACUTE ON CHRONIC DIASTOLIC (CONGESTIVE) HEART FAILURE (2) Pleural effusion, bilateral Assessment/Plan: Due to CHF O2 inhalation IV Lasix rpt CXR after few days Code(s): J90 - PLEURAL EFFUSION, NOT ELSEWHERE CLASSIFIED (3) Type 2 diabetes mellitus with diabetic neuropathy, unspecified Assessment/Plan: Cont correction dose insulin Code(s): E11.40 - TYPE 2 DIABETES MELLITUS WITH DIABETIC NEUROPATHY, UNSP (4) Hypertension Assessment/Plan: Low salt Diet on Labetalol 300 mg BID , Nifedipoine 90 mg , hydralazine 50 mg TID will cont same. Code(s): I10 - ESSENTIAL (PRIMARY) HYPERTENSION Qualifiers: (5) CAD (coronary artery disease) Assessment/Plan: S/P CABG asymptomatic resume ASA, Plavix, Labetalol , Imdur Code(s): I25.10 - ATHSCL HEART DISEASE OF [place] CORONARY ARTERY W/O ANG PCTRS (6) CKD (chronic kidney disease) stage 4, GFR 15-29 ml/min Assessment/Plan: Most likely Diabetic nephropathy, previous w/u -e , patient has persistent proteinuria will f/u renal recommendations. Code(s): N18.4 - CHRONIC KIDNEY DISEASE, STAGE 4 (SEVERE) (7) Anemia Assessment/Plan: chronic anemia, H/H stable, molt likely ACKD/chronic Disease. Code(s): D64.9 - ANEMIA, UNSPECIFIED
--- NOTE | 2018-10-27 12:38 | EKG ---
Test Reason : Blood Pressure : / mmHG Vent. Rate : 082 BPM Atrial Rate : 082 BPM P-R Int : 150 ms QRS Dur : 074 ms QT Int : 394 ms P-R-T Axes : 011 000 191 degrees QTc Int : 460 ms NORMAL SINUS RHYTHM LOW VOLTAGE QRS NONSPECIFIC T WAVE ABNORMALITY ABNORMAL ECG Confirmed by MD REMEDIOS, JASON ([id number]) on 10/27/2018 12:37:37 PM Referred By: Z Confirmed By:JASON WHITTAKER MD
[2018-10-27] MEDS ORDERED: ACETAMINOPHEN 500 MG TABLET (FP) PO ONE (20:30)
[2018-10-27] MEDS ORDERED: guaiFENesin/D-METHORPHAN HB 10 ML UNIT-DOSE CUPS PO ONE (22:12)
[2018-10-28] MEDS: FUROSEMIDE 40 MG/4 ML INJECTABLE VIAL IVPB SCH ×2 (06:18→13:28)
[2018-10-28] MEDS: hydrALAZINE HCL 50 MG TABLET (FP) PO SCH ×3 (06:18→21:53)
[2018-10-28] MEDS: INSULIN SLIDING SCALE (NOVOLOG) 1 VIAL SQ SCH ×3 (06:18→17:19)
[2018-10-28 06:43] LABS: ALK PHOS 116 U/L (45-117); ANION GAP 7 MMOL/L (8-16); BILIRUBIN,TOTAL 0.3 mg/dL (0.2-1); BLOOD UREA NITROGEN 54 mg/dL (7-18); CALCIUM 7.7 mg/dL (8.5-10.1); CHLORIDE 110 mmol/L (98-107); CO2 26 mmol/L (21-32); GLUCOSE,RANDOM 107 mg/dL (74-106); MAGNESIUM 1.9 mg/dL (1.8-2.4); PHOSPHOROUS 4.5 mg/dL (2.5-4.9); POTASSIUM 3.7 mmol/L (3.5-5.1); SGOT/AST 17 U/L (15-37); SGPT/ALT 32 U/L (13-61); SODIUM 144 mmol/L (136-145); TOT PROT 5.7 g/dl (6.4-8.2)
[2018-10-28 07:08] LABS: EOS % 2.8 % (0-4.5); HEMATOCRIT 23.7 % (35.4-49); HEMOGLOBIN 7.8 GM/dL (11.7-16.9); LYMPH % 17.2 % (8-40); MCH 28.7 pg (25.7-33.7); MEAN CELL VOLUME 86.7 fl (80-96); MEAN PLT VOLUME 7.4 fl (7.5-11.1); MONO % 8.8 % (3.8-10.2); NEUT % 70.2 % (42.8-82.8); PLATELET COUNT 250 K/MM3 (134-434); RBC 2.73 M/mm3 (4.00-5.60); RDW 14.7 % (11.9-15.9); WHITE BLOOD COUNT 4.5 K/mm3 (4.0-10.0)
[2018-10-28] MEDS: RANOLAZINE E.R. 500 MG TABLET (FP) PO SCH ×2 (10:17→21:52)
[2018-10-28] MEDS: NIFEdipine E.R. 90 MG TABLET (FP) PO SCH (10:17)
[2018-10-28] MEDS: ISOSORBIDE MONONITRATE 30 MG TAB.SR.24H (FP) PO SCH (10:17)
[2018-10-28] MEDS: TAMSULOSIN HCL 0.4 MG CAP PO SCH (10:17)
[2018-10-28] MEDS: CLOPIDOGREL BISULFATE 75 MG TABLET (FP) PO SCH (10:17)
[2018-10-28] MEDS: LABETALOL HCL 100 MG TABLET (FP) PO SCH ×2 (10:17→21:52)
[2018-10-28] MEDS: ASPIRIN COATED 81 MG TABLET.EC PO SCH (10:17)
--- NOTE | 2018-10-28 10:56 | PN ---
Progress Note (short form) - Note Progress Note: s: sob stable. no chest pain, palps, dizziness. Current Medications Aspirin (Ecotrin -) 81 mg PO DAILY [facility] Last Admin: 10/28/18 10:17 Dose: 81 mg Clopidogrel Bisulfate (Plavix -) 75 mg PO DAILY [facility] Last Admin: 10/28/18 10:17 Dose: 75 mg Ergocalciferol (Drisdol -) 50,000 unit PO Mo [facility] Last Admin: 10/26/18 16:12 Dose: 50,000 unit Furosemide (Lasix Injection -) 80 mg IVPB BID@0600,1400 [facility] Last Admin: 10/28/18 06:18 Dose: 80 mg Hydralazine HCl (Apresoline -) 50 mg PO TID [facility] Last Admin: 10/28/18 06:18 Dose: 50 mg Insulin Aspart (Novolog Vial Sliding Scale -) 1 vial SQ TIDAC [facility]; Protocol Last Admin: 10/28/18 06:18 Dose: Not Given Isosorbide Mononitrate (Imdur -) 30 mg PO DAILY [facility] Last Admin: 10/28/18 10:17 Dose: 30 mg Labetalol HCl (Normodyne -) 300 mg PO BID [facility] Last Admin: 10/28/18 10:17 Dose: 300 mg Nifedipine (Procardia Xl -) 90 mg PO DAILY [facility] Last Admin: 10/28/18 10:17 Dose: 90 mg Ranolazine (Ranexa -) 500 mg PO BID [facility] Last Admin: 10/28/18 10:17 Dose: 500 mg Tamsulosin HCl (Flomax -) 0.4 mg PO 0830 [facility] Last Admin: 10/28/18 10:17 Dose: 0.4 mg Vital Signs Period Temp Pulse Resp BP Sys/Lopez Pulse Ox Last 24 Hr 97.5 F-98.8 F 60-78 18-20 122-187/42-107 95-97 Constitutional: Yes: Well Nourished, No Distress, Calm Eyes: Yes: Conjunctiva Clear, EOM Intact HENT: Yes: Atraumatic, Normocephalic Neck: Yes: Supple, Trachea Midline Respiratory: Yes: Regular, diminished at bases bilaterally Gastrointestinal: Yes: Normal Bowel Sounds, Soft Cardiovascular: Yes: Regular Rate and Rhythm JVD: yes Carotid Bruit: No PMI: Non-Displaced Heart Sounds: Yes: S1, S2 Musculoskeletal: No: Back Pain Extremities: No: Cold Edema: Yes Edema: LLE: 3+, RLE: 3+ Peripheral Pulses WNL: Yes Peripheral Pulses: 2+ Left Doralis Pedis, 2+ Right Dorsalis Pedis Integumentary: No: Jaundice Neurological: Yes: Alert, Oriented Psychiatric: No: Agitated Assessment/Plan [facility] 10/2017 planned staged PCI of mid LAD [facility] 09/2017 (for inf ischemia on MPI) mild RCA, 80-90% LCx s/p FER, 70-80% mLAD. EDP 25->15 post nitro, EF 50% Echo 05/2018 mildly dilated LV, mild conc LVH, with discrete upper septal component, overal nl LV function EF 55%LA pressure uncertain, no RWMA,nl RV, mild MR, at least mild pulm HTN, mild MRRVSP at least 48 mmHg echo 09/2018 nl LV size, mild to mod reduced LV function EF 40-45%, RV nl, nl biatrial size, mild MR, mild to mod TR, mild ao sclerosis, trivial pericardial effusion, lg pleural effusion CXR: congestive changes Acute systolic HF exacerbation - EF 40-45% - recently discharged on lasix 80 mg daily, last weight 283 - cont labetolol, not on ACEI/ARB for CKD - continue hydralzine and imdur - continue lasix 80 mg IV BID. monitor Cr, lytes, daily standing weights CKD - was planned for outpatient kidney biopsy, not done yet - Cr 2.4 on admission - renal consulted CAD - s/p FER most recently 09/2017, 10/2017 - on aspirin and plavix, continue HTN - stable, continue home meds pulm HTN - mild on echo, likely due to diastolic dysfunction cerebral atherosclerosis - LICA plaque noted 2016 - on aspirin, plavix, statin PAD - hx L SFA stent, [employer] of left 2016 - aspirin, statin, plavix HLD - cont statin DM - manage per primary
--- NOTE | 2018-10-28 14:32 | PN ---
Progress Note (short form) - Note Progress Note: Renal follow up for CKD Pt seen and examined at the bedside awake and alert c/o diffuse body aches and cough no chest pain, abd pain, N/V/D making urine Vital Signs Temperature 97.7 F 10/28/18 08:37 Pulse Rate 60 10/28/18 08:37 Respiratory Rate 18 10/28/18 08:37 Blood Pressure 126/42 L 10/28/18 08:37 O2 Sat by Pulse Oximetry (%) 96 10/28/18 08:30 Intake & Output 10/25/18 10/26/18 10/27/18 10/28/18 23:59 23:59 23:59 23:59 Intake Total 300 200 Output Total 300 400 Balance -300 300 -200 Weight 108.862 kg 128.367 kg 129.727 kg NAD RRR, no M/R Dec BS at lung bases, no ovet rales soft obese, NT/ND ++ Left UE edema ++ bilateral LE edema CBC, BMP 10/28/18 05:30 10/28/18 05:30 Current Medications Aspirin (Ecotrin -) 81 mg PO DAILY [facility] Last Admin: 10/28/18 10:17 Dose: 81 mg Clopidogrel Bisulfate (Plavix -) 75 mg PO DAILY [facility] Last Admin: 10/28/18 10:17 Dose: 75 mg Ergocalciferol (Drisdol -) 50,000 unit PO Mo [facility] Last Admin: 10/26/18 16:12 Dose: 50,000 unit Furosemide (Lasix Injection -) 80 mg IVPB BID@0600,1400 [facility] Last Admin: 10/28/18 13:28 Dose: 80 mg Hydralazine HCl (Apresoline -) 50 mg PO TID [facility] Last Admin: 10/28/18 13:28 Dose: 50 mg Insulin Aspart (Novolog Vial Sliding Scale -) 1 vial SQ TIDAC [facility]; Protocol Last Admin: 10/28/18 12:09 Dose: Not Given Isosorbide Mononitrate (Imdur -) 30 mg PO DAILY [facility] Last Admin: 10/28/18 10:17 Dose: 30 mg Labetalol HCl (Normodyne -) 300 mg PO BID [facility] Last Admin: 10/28/18 10:17 Dose: 300 mg Nifedipine (Procardia Xl -) 90 mg PO DAILY [facility] Last Admin: 10/28/18 10:17 Dose: 90 mg Ranolazine (Ranexa -) 500 mg PO BID [facility] Last Admin: 10/28/18 10:17 Dose: 500 mg Tamsulosin HCl (Flomax -) 0.4 mg PO 0830 [facility] Last Admin: 10/28/18 10:17 Dose: 0.4 mg 58 year old gentleman with hx of CKD with proteinuria, CHF, CAD s/p PCI, Hypertension, hyperlipidemia who preesnted from home with LE swelling and sob and admitted for CHF exacerbation with Cr of 2.4-2.6. #CHF exacerbation #Upper extremity edema r/o DVT #CKD with proteinuria, recovering from GABI #CAD #HLD Cr nasreen to 3 in setting of diuretics, continue lasix for now given persistent edema Urine studies consistent with nephrotic range proteinuria Lasix increased to 80mg IV BID Check Doppler of Upper extremities to r/o DVT - pending Continue Nifedpine ER, Labetalol 300mg BID, Hydralazine. Titrate to acheive goal BP < 140/90 continue flomax Check iron studies, may need IV iron +/- RICHARD Thank you Mansoor Quiroz DO
--- NOTE | 2018-10-28 16:36 | PN ---
Physical Exam: SUBJECTIVE: Patient seen and examined, reports generalized bodyaches, and feeling short of breath with minimal activity. does not want to get out of bed OBJECTIVE: Vital Signs Period Temp Pulse Resp BP Sys/Lopez Pulse Ox Last 24 Hr 97.5 F-98.8 F 60-75 18-20 122-130/42-70 95-96 GENERAL: alert, awake, in no acute distress Neck: soft, supple, no JVD visualized, limited by body habitus Chest: decreased effort, no rales or wheezing appreciated Abdomen: soft, obese, NT Extremities: LUE edema, bilateral LE edema Laboratory Results - last 24 hr 10/27/18 10/27/18 10/28/18 17:23 17:25 05:30 WBC 4.5 RBC 2.73 L Hgb 7.8 L Hct 23.7 L MCV 86.7 MCH 28.7 MCHC 33.0 RDW 14.7 Plt Count 250 MPV 7.4 L Absolute Neuts (auto) 3.2 Neutrophils % 70.2 Lymphocytes % 17.2 Monocytes % 8.8 Eosinophils % 2.8 Basophils % 1.0 Nucleated RBC % 0 Sodium Potassium Chloride Carbon Dioxide Anion Gap BUN Creatinine Creat Clearance w eGFR POC Glucometer 200 124 Random Glucose Calcium Phosphorus Magnesium Ferritin Total Bilirubin AST ALT Alkaline Phosphatase Total Protein Albumin 10/28/18 10/28/18 10/28/18 05:30 06:15 11:04 WBC RBC Hgb Hct MCV MCH MCHC RDW Plt Count MPV Absolute Neuts (auto) Neutrophils % Lymphocytes % Monocytes % Eosinophils % Basophils % Nucleated RBC % Sodium 144 Potassium 3.7 Chloride 110 H Carbon Dioxide 26 Anion Gap 7 L BUN 54 H Creatinine 3.0 H Creat Clearance w eGFR 21.68 POC Glucometer 132 131 Random Glucose 107 H Calcium 7.7 L Phosphorus 4.5 Magnesium 1.9 Ferritin 341.7 Total Bilirubin 0.3 AST 17 ALT 32 Alkaline Phosphatase 116 Total Protein 5.7 L Albumin 2.0 L Active Medications Generic Name Dose Route Start Last Admin Trade Name Freq PRN Reason Stop Dose Admin Aspirin 81 mg 10/27/18 10:00 10/28/18 10:17 Ecotrin - PO 81 mg DAILY [facility] Administration Clopidogrel Bisulfate 75 mg 10/27/18 10:00 10/28/18 10:17 Plavix - PO 75 mg DAILY [facility] Administration Ergocalciferol 50,000 unit 10/26/18 12:00 10/26/18 16:12 Drisdol - PO 50,000 unit Mo [facility] Administration Furosemide 80 mg 10/27/18 06:00 10/28/18 13:28 Lasix Injection - IVPB 80 mg BID@0600,1400 [facility] Administration Hydralazine HCl 50 mg 10/26/18 14:00 10/28/18 13:28 Apresoline - PO 50 mg TID [facility] Administration Insulin Aspart 1 vial 10/26/18 16:30 10/28/18 12:09 Novolog Vial Sliding Scale - SQ [facility] Isosorbide Mononitrate 30 mg 10/27/18 10:00 10/28/18 10:17 Imdur - PO 30 mg DAILY [facility] Administration Labetalol HCl 300 mg 10/26/18 22:00 10/28/18 10:17 Normodyne - PO 300 mg BID [facility] Administration Nifedipine 90 mg 10/27/18 10:00 10/28/18 10:17 Procardia Xl - PO 90 mg DAILY [facility] Administration Ranolazine 500 mg 10/26/18 22:00 10/28/18 10:17 Ranexa - PO 500 mg BID [facility] Administration Tamsulosin HCl 0.4 mg 10/27/18 08:30 10/28/18 10:17 Flomax - PO 0.4 mg 0830 [facility] Administration Home Medications Medication Instructions Recorded Glipizide [Glucotrol] 5 mg PO BID 04/08/17 Atorvastatin Ca [Lipitor] 40 mg PO HS 09/25/18 Ergocalciferol (Vitamin D2) 50,000 unit PO WEEKLY 09/25/18 [Vitamin D2] Tamsulosin HCl [Flomax] 0.4 mg PO DAILY 09/25/18 Furosemide [Lasix -] 80 mg PO DAILY 30 Days #60 tablet 10/07/18 Labetalol HCl [Normodyne -] 300 mg PO BID 30 Days #180 tablet 10/07/18 hydrALAZINE HCL [Apresoline -] 50 mg PO TID 30 Days #90 tablet 10/07/18 Aspirin [Aspirin EC] 81 mg PO DAILY 10/11/18 Clopidogrel Bisulfate [Plavix -] 75 mg PO DAILY 10/11/18 Isosorbide Mononitrate [Imdur -] 30 mg PO DAILY 10/11/18 Losartan Potassium 50 mg PO DAILY 10/11/18 Nifedipine ER [Procardia XL -] 90 mg PO DAILY 10/11/18 Ranolazine [Ranexa -] 500 mg PO BID 10/11/18 ASSESSMENT/PLAN: 58 yom with PMX of CAD s/p Stage FER PCI 09/2017/10/2017, HTN, HLD, NIDDM, CKD stage III, (recent renal dysfunction, was planned for possible PCI), PAD s/p SFA PCI 2016 admitted with CHF -ACute systolic heart failure exacerbation -CAD s/p staged PCI 09/2017 and 10/2017 -Cardiomyopathy, suspect ischemia EF 40-45% -HTN -HLD -NIDDM -CKD stage III -PAD s/p SFA PCI 2016 Plan: Lasix 80 mg IV BID Cardiology/nephrology input noted Follow up LUE duplex. Close volume status monitoring. COntinue ASA/plavix/labetalol/hydralazine/nifedipine/ranexa/Imdur. ISS, diabetic diet Flomax Add heparin for DVTPPX PT eval, encourage OOB Dispo pending clinical improvement. Plan discussed with patient and nursing, all questions answered. Visit type - Emergency Visit Emergency Visit: Yes ED Registration Date: 10/26/18 Care time: The patient presented to the Emergency Department on the above date and was hospitalized for further evaluation of their emergent condition. - New Patient This patient is new to me today: Yes Date on this admission: 10/28/18 - Critical Care Critical Care patient: No - Discharge Referral Referred to [facility] Med P.C.: No
[2018-10-28] MEDS: ACETAMINOPHEN 325 MG TABLET (FP) PO PRN (17:54)
[2018-10-28] MEDS: HEPARIN NA (PORCINE) 5,000 UNITS/ML 1ML VIAL SQ SCH (21:53)
[2018-10-29 04:14] LABS: SERUM IRON SATURATION 16 % (15-55); TOTAL IRON BINDING CAPACITY 207 ug/dL (250-450); UIBC 174 ug/dL (111-343)
[2018-10-29] MEDS: FUROSEMIDE 40 MG/4 ML INJECTABLE VIAL IVPB SCH (06:19)
[2018-10-29] MEDS: hydrALAZINE HCL 50 MG TABLET (FP) PO SCH ×3 (06:19→21:03)
[2018-10-29] MEDS: ACETAMINOPHEN 325 MG TABLET (FP) PO PRN ×2 (06:19→13:55)
[2018-10-29] MEDS: HEPARIN NA (PORCINE) 5,000 UNITS/ML 1ML VIAL SQ SCH ×3 (06:20→21:02)
[2018-10-29] MEDS: INSULIN SLIDING SCALE (NOVOLOG) 1 VIAL SQ SCH ×3 (06:24→17:36)
[2018-10-29 06:33] LABS: BASO % 1.2 % (0-2.0); EOS % 2.8 % (0-4.5); HEMOGLOBIN 8.1 GM/dL (11.7-16.9); LYMPH % 23.5 % (8-40); MCHC 33.7 g/dl (32.0-35.9); MEAN PLT VOLUME 7.1 fl (7.5-11.1); MONO % 10.3 % (3.8-10.2); NEUT % 62.2 % (42.8-82.8); PLATELET COUNT 267 K/MM3 (134-434); RBC 2.79 M/mm3 (4.00-5.60); RDW 14.7 % (11.9-15.9); WHITE BLOOD COUNT 4.5 K/mm3 (4.0-10.0)
[2018-10-29 07:05] LABS: ANION GAP 7 MMOL/L (8-16); BLOOD UREA NITROGEN 59 mg/dL (7-18); CALCIUM 7.7 mg/dL (8.5-10.1); CHLORIDE 111 mmol/L (98-107); CO2 25 mmol/L (21-32); CREATININE 3.5 mg/dL (0.55-1.3); GLUCOSE,RANDOM 98 mg/dL (74-106); MAGNESIUM 1.8 mg/dL (1.8-2.4); PHOSPHOROUS 4.7 mg/dL (2.5-4.9); POTASSIUM 3.7 mmol/L (3.5-5.1); SODIUM 143 mmol/L (136-145)
[2018-10-29] MEDS: NIFEdipine E.R. 90 MG TABLET (FP) PO SCH (09:10)
[2018-10-29] MEDS: TAMSULOSIN HCL 0.4 MG CAP PO SCH (09:10)
[2018-10-29] MEDS: LABETALOL HCL 100 MG TABLET (FP) PO SCH ×2 (09:11→21:03)
[2018-10-29] MEDS: ASPIRIN COATED 81 MG TABLET.EC PO SCH (09:11)
[2018-10-29] MEDS: RANOLAZINE E.R. 500 MG TABLET (FP) PO SCH ×2 (09:11→21:03)
[2018-10-29] MEDS: ISOSORBIDE MONONITRATE 30 MG TAB.SR.24H (FP) PO SCH (09:12)
[2018-10-29] MEDS: CLOPIDOGREL BISULFATE 75 MG TABLET (FP) PO SCH (09:13)
--- NOTE | 2018-10-29 11:08 | PN ---
Progress Note (short form) - Note Progress Note: s: sob stable. no chest pain, palps, dizziness. Current Medications Generic Name Dose Route Start Last Admin Trade Name Freq PRN Reason Stop Dose Admin Acetaminophen 650 mg 10/28/18 16:55 10/29/18 06:19 Tylenol - PO 650 mg Q6H PRN Administration PAIN LEVEL 1-5 Aspirin 81 mg 10/27/18 10:00 10/29/18 09:11 Ecotrin - PO 81 mg DAILY [facility] Administration Clopidogrel Bisulfate 75 mg 10/27/18 10:00 10/29/18 09:13 Plavix - PO 75 mg DAILY [facility] Administration Ergocalciferol 50,000 unit 10/26/18 12:00 10/26/18 16:12 Drisdol - PO 50,000 unit Mo [facility] Administration Furosemide 80 mg 10/27/18 06:00 10/29/18 06:19 Lasix Injection - IVPB 80 mg BID@0600,1400 [facility] Administration Heparin Sodium (Porcine) 5,000 unit 10/28/18 22:00 10/29/18 06:20 Heparin - SQ 5,000 unit TID [facility] Administration Hydralazine HCl 50 mg 10/26/18 14:00 10/29/18 06:19 Apresoline - PO 50 mg TID [facility] Administration Insulin Aspart 1 vial 10/26/18 16:30 10/29/18 06:24 Novolog Vial Sliding Scale - SQ Not Given TIDAC [facility] Protocol Isosorbide Mononitrate 30 mg 10/27/18 10:00 10/29/18 09:12 Imdur - PO 30 mg DAILY [facility] Administration Labetalol HCl 300 mg 10/26/18 22:00 10/29/18 09:11 Normodyne - PO 300 mg BID [facility] Administration Nifedipine 90 mg 10/27/18 10:00 10/29/18 09:10 Procardia Xl - PO 90 mg DAILY [facility] Administration Ranolazine 500 mg 10/26/18 22:00 10/29/18 09:11 Ranexa - PO 500 mg BID [facility] Administration Tamsulosin HCl 0.4 mg 10/27/18 08:30 10/29/18 09:10 Flomax - PO 0.4 mg 0830 [facility] Administration Vital Signs Period Temp Pulse Resp BP Sys/Lopez Pulse Ox Last 24 Hr 97.3 F-97.9 F 68-77 18-20 122-137/59-80 96 Constitutional: Yes: Well Nourished, No Distress, Calm Eyes: Yes: Conjunctiva Clear, Neck: Yes: Supple, Trachea Midline Respiratory: Yes: Regular, diminished at bases bilaterally Gastrointestinal: Yes: Normal Bowel Sounds, Soft Cardiovascular: Yes: Regular Rate and Rhythm JVD: yes Heart Sounds: Yes: S1, S2 Musculoskeletal: No: Back Pain Extremities: No: Cold Edema: Yes Edema: LLE: 2+, RLE: 2+ Peripheral Pulses: 2+ Left Doralis Pedis, 2+ Right Dorsalis Pedis Integumentary: No: Jaundice Neurological: Yes: Alert, Oriented Psychiatric: No: Agitated CBC, BMP 10/29/18 05:30 10/29/18 05:30 Assessment/Plan [facility] 10/2017 planned staged PCI of mid LAD [facility] 09/2017 (for inf ischemia on MPI) mild RCA, 80-90% LCx s/p FER, 70-80% mLAD. EDP 25->15 post nitro, EF 50% Echo 05/2018 mildly dilated LV, mild conc LVH, with discrete upper septal component, overal nl LV function EF 55%LA pressure uncertain, no RWMA,nl RV, mild MR, at least mild pulm HTN, mild MRRVSP at least 48 mmHg echo 09/2018 nl LV size, mild to mod reduced LV function EF 40-45%, RV nl, nl biatrial size, mild MR, mild to mod TR, mild ao sclerosis, trivial pericardial effusion, lg pleural effusion tele: sr CXR: congestive changes Acute systolic HF exacerbation - EF 40-45% - recently discharged on lasix 80 mg daily, last weight 283 - cont labetolol, not on ACEI/ARB for CKD - continue hydralzine and imdur - continue lasix 80 mg IV BID. monitor Cr, lytes, daily standing weights. may need to hold diuretics if cr continues to rise. CKD - was planned for outpatient kidney biopsy, not done yet - Cr 2.4 on admission, rising. may need to hold diuretics if cr continues to rise. 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
--- NOTE | 2018-10-29 13:19 | PN ---
Physical Exam: SUBJECTIVE: Patient seen and examined, breathing better, urinating well, no new complaints. OBJECTIVE: Vital Signs Period Temp Pulse Resp BP Sys/Lopez Pulse Ox Last 24 Hr 97.3 F-97.9 F 68-77 18-20 122-138/59-80 96-97 GENERAL: sitting in bed in no acute distress Chest decreased breath sounds at bases, improved air entry Abdomen:soft, Obese, NT Extremities 2+ pedal pitting edema Neck: soft, supple, no JVD visualized Laboratory Results - last 24 hr 10/28/18 10/29/18 10/29/18 05:30 05:30 05:30 WBC 4.5 RBC 2.79 L Hgb 8.1 L Hct 24.0 L MCV 86.0 MCH 29.0 MCHC 33.7 RDW 14.7 Plt Count 267 MPV 7.1 L Absolute Neuts (auto) 2.8 Neutrophils % 62.2 Lymphocytes % 23.5 D Monocytes % 10.3 H Eosinophils % 2.8 Basophils % 1.2 Nucleated RBC % 0 Sodium 143 Potassium 3.7 Chloride 111 H Carbon Dioxide 25 Anion Gap 7 L BUN 59 H Creatinine 3.5 H Creat Clearance w eGFR 18.14 POC Glucometer Random Glucose 98 Calcium 7.7 L Phosphorus 4.7 Magnesium 1.8 Iron 33 L TIBC 207 L Iron Saturation 16 10/29/18 10/29/18 05:50 11:25 WBC RBC Hgb Hct MCV MCH MCHC RDW Plt Count MPV Absolute Neuts (auto) Neutrophils % Lymphocytes % Monocytes % Eosinophils % Basophils % Nucleated RBC % Sodium Potassium Chloride Carbon Dioxide Anion Gap BUN Creatinine Creat Clearance w eGFR POC Glucometer 94 129 Random Glucose Calcium Phosphorus Magnesium Iron TIBC Iron Saturation Active Medications Generic Name Dose Route Start Last Admin Trade Name Freq PRN Reason Stop Dose Admin Acetaminophen 650 mg 10/28/18 16:55 10/29/18 06:19 Tylenol - PO 650 mg Q6H PRN Administration PAIN LEVEL 1-5 Aspirin 81 mg 10/27/18 10:00 10/29/18 09:11 Ecotrin - PO 81 mg DAILY [facility] Administration Clopidogrel Bisulfate 75 mg 10/27/18 10:00 10/29/18 09:13 Plavix - PO 75 mg DAILY [facility] Administration Ergocalciferol 50,000 unit 10/26/18 12:00 10/26/18 16:12 Drisdol - PO 50,000 unit Mo [facility] Administration Furosemide 80 mg 10/27/18 06:00 10/29/18 06:19 Lasix Injection - IVPB 80 mg BID@0600,1400 [facility] Administration Heparin Sodium (Porcine) 5,000 unit 10/28/18 22:00 10/29/18 06:20 Heparin - SQ 5,000 unit TID [facility] Administration Hydralazine HCl 50 mg 10/26/18 14:00 10/29/18 06:19 Apresoline - PO 50 mg TID [facility] Administration Insulin Aspart 1 vial 10/26/18 16:30 10/29/18 12:14 Novolog Vial Sliding Scale - SQ Not [facility] Protocol Isosorbide Mononitrate 30 mg 10/27/18 10:00 10/29/18 09:12 Imdur - PO 30 mg DAILY [facility] Administration Labetalol HCl 300 mg 10/26/18 22:00 10/29/18 09:11 Normodyne - PO 300 mg BID [facility] Administration Nifedipine 90 mg 10/27/18 10:00 10/29/18 09:10 Procardia Xl - PO 90 mg DAILY [facility] Administration Ranolazine 500 mg 10/26/18 22:00 10/29/18 09:11 Ranexa - PO 500 mg BID [facility] Administration Tamsulosin HCl 0.4 mg 10/27/18 08:30 10/29/18 09:10 Flomax - PO 0.4 mg 0830 [facility] Administration Home Medications Medication Instructions Recorded Glipizide [Glucotrol] 5 mg PO BID 04/08/17 Atorvastatin Ca [Lipitor] 40 mg PO HS 09/25/18 Ergocalciferol (Vitamin D2) 50,000 unit PO WEEKLY 09/25/18 [Vitamin D2] Tamsulosin HCl [Flomax] 0.4 mg PO DAILY 09/25/18 Furosemide [Lasix -] 80 mg PO DAILY 30 Days #60 tablet 10/07/18 Labetalol HCl [Normodyne -] 300 mg PO BID 30 Days #180 tablet 10/07/18 hydrALAZINE HCL [Apresoline -] 50 mg PO TID 30 Days #90 tablet 10/07/18 Aspirin [Aspirin EC] 81 mg PO DAILY 10/11/18 Clopidogrel Bisulfate [Plavix -] 75 mg PO DAILY 10/11/18 Isosorbide Mononitrate [Imdur -] 30 mg PO DAILY 10/11/18 Losartan Potassium 50 mg PO DAILY 10/11/18 Nifedipine ER [Procardia XL -] 90 mg PO DAILY 10/11/18 Ranolazine [Ranexa -] 500 mg PO BID 10/11/18 ASSESSMENT/PLAN: 58 yom with PMX of CAD s/p Stage FER PCI 09/2017/10/2017, HTN, HLD, NIDDM, CKD stage III, (recent renal dysfunction, was planned for possible PCI), PAD s/p SFA PCI 2016 admitted with CHF -Acute systolic heart failure exacerbation -CAD s/p staged PCI 09/2017 and 10/2017 -Cardiomyopathy, suspect ischemia EF 40-45% -HTN -HLD -NIDDM -CKD stage III -PAD s/p SFA PCI 2016 Plan: Cr rising, s/p lasix 80 mg IV this AM, hold additional doses today, follow up Cr. Cardiology/nephrology input noted Follow up LUE duplex. Close volume status monitoring. Continue ASA/plavix/labetalol/hydralazine/nifedipine/ranexa/Imdur. ISS, diabetic diet Flomax DVTPPX heparin PT eval, encourage OOB Dispo pending clinical improvement. Plan discussed with patient and nursing, all questions answered. Visit type - Emergency Visit Emergency Visit: Yes ED Registration Date: 10/26/18 Care time: The patient presented to the Emergency Department on the above date and was hospitalized for further evaluation of their emergent condition. - New Patient This patient is new to me today: No - Critical Care Critical Care patient: No - Discharge Referral Referred to [facility] Med P.C.: No
--- NOTE | 2018-10-29 14:23 | PN ---
Progress Note, Physician Chief Complaint: The patient seen in his room. On bed. Offers no new complaints. The edema of the LE persists. History of Present Illness: This is a 58 year old gentleman with hx of CKD with proteinuria , CHF, CAD s/p PCI, Hypertension, hyperlipidemia who presented from home with LE swelling and sob and admitted for CHF exacerbation with Cr of 2.4-2.6. Pt s/p recent hospital admission during which time Cr peaked at 4.4 but improved gradually with Lasix. Pt was planned to have a renal biopsy as an outpatient but did not get on IR schedule the week after he got discharged and now is back on ASA and Plavix. He was seen in our office on 10/12, weight was 131kg at that time. His Lasix was increased to 80mg BID. He missed his last appointment. Pt reports feeling better today. Has UE swelling as well. No fever, chills, chest pain, abd pain, N/V/D, confusion, lethargy or weakness. Very upset that the anticoagulants were restarted before the biopsy. - Current Medication List Current Medications: Active Medications Acetaminophen (Tylenol -) 650 mg PO Q6H PRN PRN Reason: PAIN LEVEL 1-5 Last Admin: 10/29/18 13:55 Dose: 650 mg Aspirin (Ecotrin -) 81 mg PO DAILY [facility] Last Admin: 10/29/18 09:11 Dose: 81 mg Clopidogrel Bisulfate (Plavix -) 75 mg PO DAILY [facility] Last Admin: 10/29/18 09:13 Dose: 75 mg Ergocalciferol (Drisdol -) 50,000 unit PO Mo [facility] Last Admin: 10/26/18 16:12 Dose: 50,000 unit Furosemide (Lasix Injection -) 80 mg IVPB BID@0600,1400 [facility] Last Admin: 10/29/18 06:19 Dose: 80 mg Heparin Sodium (Porcine) (Heparin -) 5,000 unit SQ TID [facility] Last Admin: 10/29/18 13:43 Dose: 5,000 unit Hydralazine HCl (Apresoline -) 50 mg PO TID [facility] Last Admin: 10/29/18 13:43 Dose: 50 mg Insulin Aspart (Novolog Vial Sliding Scale -) 1 vial SQ TIDAC [facility]; Protocol Last Admin: 10/29/18 12:14 Dose: Not Given Isosorbide Mononitrate (Imdur -) 30 mg PO DAILY [facility] Last Admin: 10/29/18 09:12 Dose: 30 mg Labetalol HCl (Normodyne -) 300 mg PO BID [facility] Last Admin: 10/29/18 09:11 Dose: 300 mg Nifedipine (Procardia Xl -) 90 mg PO DAILY [facility] Last Admin: 10/29/18 09:10 Dose: 90 mg Ranolazine (Ranexa -) 500 mg PO BID [facility] Last Admin: 10/29/18 09:11 Dose: 500 mg Tamsulosin HCl (Flomax -) 0.4 mg PO 829 [facility] Last Admin: 10/29/18 09:10 Dose: 0.4 mg - Objective Vital Signs: Vital Signs Temperature 97.1 F L 10/29/18 13:51 Pulse Rate 71 10/29/18 13:51 Respiratory Rate 18 10/29/18 10:00 Blood Pressure 110/70 10/29/18 13:51 O2 Sat by Pulse Oximetry (%) 97 10/29/18 09:00 Constitutional: Yes: Anxious Eyes: Yes: Conjunctiva Clear HENT: Yes: Atraumatic Neck: Yes: Trachea Midline Cardiovascular: Yes: Tachycardia, S1, S2 Respiratory: Yes: CTA Bilaterally, Diminished Gastrointestinal: Yes: Normal Bowel Sounds, Soft, Abdomen, Obese Extremities: Yes: Deformity Edema: Yes Edema: LLE: 3+, RLE: 3+ Neurological: Yes: Alert, Oriented Labs: CBC, BMP 10/29/18 05:30 10/29/18 05:30 INR, PTT INR 1.27 (0.83-1.09) H 10/26/18 09:50 Problem List - Problems (1) Anemia Code(s): D64.9 - ANEMIA, UNSPECIFIED (2) CAD (coronary artery disease) Code(s): I25.10 - ATHSCL HEART DISEASE OF [place] CORONARY ARTERY W/O ANG PCTRS (3) CHF (congestive heart failure) Code(s): I50.9 - HEART FAILURE, UNSPECIFIED Qualifiers: Heart failure type: systolic Heart failure chronicity: acute on chronic Qualified Code(s): I50.23 - Acute on chronic systolic (congestive) heart failure (4) CKD (chronic kidney disease) stage 4, GFR 15-29 ml/min Code(s): N18.4 - CHRONIC KIDNEY DISEASE, STAGE 4 (SEVERE) (5) Heart failure, diastolic, with acute decompensation Code(s): I50.33 - ACUTE ON CHRONIC DIASTOLIC (CONGESTIVE) HEART FAILURE (6) Pleural effusion, bilateral Code(s): J90 - PLEURAL EFFUSION, NOT ELSEWHERE CLASSIFIED (7) GABI (acute kidney injury) Code(s): N17.9 - ACUTE KIDNEY FAILURE, UNSPECIFIED (8) Diabetic ulcer of left foot Code(s): E11.621 - TYPE 2 DIABETES MELLITUS WITH FOOT ULCER; L97.529 - NON- PRESSURE CHRONIC ULCER OTH PRT LEFT FOOT W UNSP SEVERITY (9) Gangrenous toe Code(s): I96 - GANGRENE, NOT ELSEWHERE CLASSIFIED (10) PAD (peripheral artery disease) Code(s): I73.9 - PERIPHERAL VASCULAR DISEASE, UNSPECIFIED (11) Type 2 diabetes mellitus with diabetic neuropathy, unspecified Code(s): E11.40 - TYPE 2 DIABETES MELLITUS WITH DIABETIC NEUROPATHY, UNSP (12) Hypertension Code(s): I10 - ESSENTIAL (PRIMARY) HYPERTENSION Qualifiers: Assessment/Plan This is a 58 year old gentleman with hx of CKD with proteinuria , CHF, CAD s/p PCI, Hypertension, hyperlipidemia who presented from home with LE swelling and sob and admitted for CHF exacerbation with Cr of 2.4-2.6. Pt s/p recent hospital admission during which time Cr peaked at 4.4 but improved gradually with Lasix. Pt was planned to have a renal biopsy as an outpatient but did not get on IR schedule the week after he got discharged and now is back on ASA and Plavix. He was seen in our office on 10/12, weight was 131kg at that time. His Lasix was increased to 80mg BID. He missed his last appointment. Pt reports feeling better today. Has UE swelling as well. No fever, chills, chest pain, abd pain, N/V/D, confusion, lethargy or weakness. IMP: The azotemia is worsening. Lasix on hold for now. It is likely that the patient will require higher doses of loop diuretics. The weight documentations seems erroneous. 240>283>286 lbs Will hold the diuretics for 24 hours. should consider restarting in 24 hours. May consider Lasix infusion at 5-10 mg/ hr. Will monitor the renal functions. Ideally the patient should have a Renal Biopsy. The renal diagnosis remains obscure at this point. Thank you. Will follow. Fauzia Aguila MD
[2018-10-29] MEDS: guaiFENesin/D-M SUGAR-FREE/ACLHOL-FREE 118 ML BOTTLE PO PRN (23:43)
[2018-10-30] MEDS: hydrALAZINE HCL 50 MG TABLET (FP) PO SCH ×3 (06:58→22:03)
[2018-10-30] MEDS: HEPARIN NA (PORCINE) 5,000 UNITS/ML 1ML VIAL SQ SCH ×3 (06:58→22:02)
[2018-10-30] MEDS: INSULIN SLIDING SCALE (NOVOLOG) 1 VIAL SQ SCH ×3 (06:58→17:11)
[2018-10-30 07:09] LABS: ANION GAP 8 MMOL/L (8-16); BLOOD UREA NITROGEN 64 mg/dL (7-18); CALCIUM 7.6 mg/dL (8.5-10.1); CHLORIDE 110 mmol/L (98-107); CO2 25 mmol/L (21-32); CREATININE 3.9 mg/dL (0.55-1.3); GLUCOSE,RANDOM 101 mg/dL (74-106); MAGNESIUM 1.8 mg/dL (1.8-2.4); PHOSPHOROUS 4.8 mg/dL (2.5-4.9); SODIUM 142 mmol/L (136-145)
--- NOTE | 2018-10-30 09:43 | PN ---
Progress Note, Physician Chief Complaint: Feeling some sx of PND Weight is slightly up TELE: NSR - Current Medication List Current Medications: Active Medications Acetaminophen (Tylenol -) 650 mg PO Q6H PRN PRN Reason: PAIN LEVEL 1-5 Last Admin: 10/29/18 13:55 Dose: 650 mg Aspirin (Ecotrin -) 81 mg PO DAILY [facility] Last Admin: 10/29/18 09:11 Dose: 81 mg Clopidogrel Bisulfate (Plavix -) 75 mg PO DAILY [facility] Last Admin: 10/29/18 09:13 Dose: 75 mg Ergocalciferol (Drisdol -) 50,000 unit PO Mo [facility] Last Admin: 10/26/18 16:12 Dose: 50,000 unit Furosemide (Lasix Injection -) 80 mg IVPB BID@0600,1400 [facility] Last Admin: 10/29/18 06:19 Dose: 80 mg Guaifenesin (Diabetic Tussin Dm -) 5 ml PO Q6H PRN PRN Reason: COUGH Last Admin: 10/29/18 23:43 Dose: 5 ml Heparin Sodium (Porcine) (Heparin -) 5,000 unit SQ TID [facility] Last Admin: 10/30/18 06:58 Dose: 5,000 unit Hydralazine HCl (Apresoline -) 50 mg PO TID [facility] Last Admin: 10/30/18 06:58 Dose: 50 mg Insulin Aspart (Novolog Vial Sliding Scale -) 1 vial SQ TIDAC [facility]; Protocol Last Admin: 10/30/18 06:58 Dose: Not Given Isosorbide Mononitrate (Imdur -) 30 mg PO DAILY [facility] Last Admin: 10/29/18 09:12 Dose: 30 mg Labetalol HCl (Normodyne -) 300 mg PO BID [facility] Last Admin: 10/29/18 21:03 Dose: 300 mg Nifedipine (Procardia Xl -) 90 mg PO DAILY [facility] Last Admin: 10/29/18 09:10 Dose: 90 mg Ranolazine (Ranexa -) 500 mg PO BID [facility] Last Admin: 10/29/18 21:03 Dose: 500 mg Tamsulosin HCl (Flomax -) 0.4 mg PO 0830 [facility] Last Admin: 10/29/18 09:10 Dose: 0.4 mg - Objective Vital Signs: Vital Signs Temperature 97.9 F 04/26/19 05:34 Pulse Rate 73 10/30/18 05:34 Respiratory Rate 20 10/30/18 05:34 Blood Pressure 132/72 10/30/18 05:34 O2 Sat by Pulse Oximetry (%) 97 10/29/18 21:00 Constitutional: Yes: No Distress Cardiovascular: Yes: Regular Rate and Rhythm Respiratory: Yes: Other (rales at bases 1/3 b/l) Gastrointestinal: Yes: Soft, Abdomen, Obese Edema: Yes Edema: LLE: 2+, RLE: 2+ Neurological: Yes: Alert, Oriented Labs: CBC, BMP 10/29/18 05:30 10/30/18 05:30 INR, PTT INR 1.27 (0.83-1.09) H 10/26/18 09:50 Laboratory Tests 10/30/18 05:30 Sodium 142 Potassium 4.0 BUN 64 H Creatinine 3.9 H - ....Imaging EKG: Image Reviewed Assessment/Plan 1. Acute systolic HF exacerbation: - EF 40-45% - cont labetolol, not on ACEI/ARB for CKD - continue hydralzine and imdur -Possible cardiorenal syndrome -Will hold Lasix for now and discuss with renal plan for further diuresis 2. CKD - was planned for outpatient kidney biopsy, not done yet - Cr 2.4 on admission, rising. may need to hold diuretics if cr continues to rise. - renal following 3. CAD: - s/p FER most recently 09/2017, 10/2017 - on aspirin and plavix, continue 4. HTN: - stable, continue home meds 5. Pulm HTN: - mild on echo, likely due to diastolic dysfunction 6. cerebral atherosclerosis: - LICA plaque noted 2016 - on aspirin, plavix, statin 7. 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 HLD: - cont statin 9. DM: - manage per primary
[2018-10-30] MEDS ORDERED: PT OWN MED DRAWER 7, Y5N ONE ×4 (09:58→23:08)
--- NOTE | 2018-10-30 10:11 | PN ---
Physical Exam: SUBJECTIVE: Patient seen and examined, no new complaints. PND, but overall breathing better. Still with leg edema, reports less urination since yesterday after 'you guys held my pill'. OBJECTIVE: Vital Signs Period Temp Pulse Resp BP Sys/Lopez Pulse Ox Last 24 Hr 97.1 F-98.6 F 71-73 20-20 110-132/49-72 97 Intake & Output 10/27/18 10/28/18 10/29/18 10/30/18 23:59 23:59 23:59 23:59 Intake Total 300 1380 970 350 Output Total 1700 900 600 Balance 300 -320 70 -250 Weight 283 lb 286 lb 288 lb 6.4 oz GENERAL:AA, no acute distress CVS:S1S2 regular Chest: limited by habitus, no rales or wheezing appreciated, decreased breath sounds at bases Abdomen:soft, obese, NT Extremities: overall unchanged 2+ pedal pitting edema Neck: soft, supple, no JVD visualized but exam limited by body habitus Laboratory Results - last 24 hr 10/29/18 10/29/18 10/30/18 11:25 16:49 05:30 Sodium 142 Potassium 4.0 Chloride 110 H Carbon Dioxide 25 Anion Gap 8 BUN 64 H Creatinine 3.9 H Creat Clearance w eGFR 16.01 POC Glucometer 129 114 Random Glucose 101 Calcium 7.6 L Phosphorus 4.8 Magnesium 1.8 10/30/18 06:56 Sodium Potassium Chloride Carbon Dioxide Anion Gap BUN Creatinine Creat Clearance w eGFR POC Glucometer 97 Random Glucose Calcium Phosphorus Magnesium Active Medications Generic Name Dose Route Start Last Admin Trade Name Freq PRN Reason Stop Dose Admin Acetaminophen 650 mg 10/28/18 16:55 10/29/18 13:55 Tylenol - PO 650 mg Q6H PRN Administration PAIN LEVEL 1-5 Aspirin 81 mg 10/27/18 10:00 10/29/18 09:11 Ecotrin - PO 81 mg DAILY [facility] Administration Clopidogrel Bisulfate 75 mg 10/27/18 10:00 10/29/18 09:13 Plavix - PO 75 mg DAILY [facility] Administration Ergocalciferol 50,000 unit 10/26/18 12:00 10/26/18 16:12 Drisdol - PO 50,000 unit Mo [facility] Administration Furosemide 80 mg 10/27/18 06:00 10/29/18 06:19 Lasix Injection - IVPB 80 mg BID@0600,1400 [facility] Administration Guaifenesin 5 ml 10/29/18 20:47 10/29/18 23:43 Diabetic Tussin Dm - PO 5 ml Q6H PRN Administration COUGH Heparin Sodium (Porcine) 5,000 unit 10/28/18 22:00 10/30/18 06:58 Heparin - SQ 5,000 unit TID [facility] Administration Hydralazine HCl 50 mg 10/26/18 14:00 10/30/18 06:58 Apresoline - PO 50 mg TID [facility] Administration Insulin Aspart 1 vial 10/26/18 16:30 10/30/18 06:58 Novolog Vial Sliding Scale - SQ Not Given TIDAC [facility] Protocol Isosorbide Mononitrate 30 mg 10/27/18 10:00 10/29/18 09:12 Imdur - PO 30 mg DAILY [facility] Administration Labetalol HCl 300 mg 10/26/18 22:00 10/29/18 21:03 Normodyne - PO 300 mg BID [facility] Administration Nifedipine 90 mg 10/27/18 10:00 10/29/18 09:10 Procardia Xl - PO 90 mg DAILY [facility] Administration Ranolazine 500 mg 10/26/18 22:00 10/29/18 21:03 Ranexa - PO 500 mg BID [facility] Administration Tamsulosin HCl 0.4 mg 10/27/18 08:30 10/29/18 09:10 Flomax - PO 0.4 mg 0830 [facility] Administration ASSESSMENT/PLAN: 58 yom with PMX of CAD s/p Stage FER PCI 09/2017/10/2017, HTN, HLD, NIDDM, CKD stage III, (recent renal dysfunction, was planned for possible PCI), PAD s/p SFA PCI 2016 admitted with CHF -Acute systolic heart failure exacerbation -CAD s/p staged PCI 09/2017 and 10/2017 -Cardiomyopathy, suspect ischemia EF 40-45% -HTN -HLD -NIDDM -CKD stage III -PAD s/p SFA PCI 2016 Plan: Lasix 80 mg IV yesterday, held further dose Cr rising. Still looks volume overloaded. Weight higher, ?accuracy. Repeat BNP/CXR Cardiology input noted. Follow up with renal. Additional lasix on hold for now. Follow up LUE duplex. Close volume status monitoring. Counseled patient on need for strict I/Os, discussed with nursing. Continue ASA/plavix/labetalol/hydralazine/nifedipine/ranexa/Imdur. ISS, diabetic diet Flomax DVTPPX heparin PT eval, encourage OOB Dispo pending clinical improvement. Plan discussed with patient and nursing, all questions answered. Care co-ordinated with cardiology. Visit type - Emergency Visit Emergency Visit: Yes ED Registration Date: 10/26/18 Care time: The patient presented to the Emergency Department on the above date and was hospitalized for further evaluation of their emergent condition. - New Patient This patient is new to me today: No - Critical Care Critical Care patient: No - Discharge Referral Referred to [facility] Med P.C.: No
[2018-10-30 10:39] LABS: N-TERMINAL BNP 12138.1 pg/ml (5-125)
[2018-10-30] MEDS: LABETALOL HCL 100 MG TABLET (FP) PO SCH ×2 (11:06→22:02)
[2018-10-30] MEDS: guaiFENesin/D-M SUGAR-FREE/ACLHOL-FREE 118 ML BOTTLE PO PRN ×2 (11:06→23:09)
[2018-10-30] MEDS: ACETAMINOPHEN 325 MG TABLET (FP) PO PRN (11:07)
[2018-10-30] MEDS: RANOLAZINE E.R. 500 MG TABLET (FP) PO SCH ×2 (11:07→22:02)
[2018-10-30] MEDS: CLOPIDOGREL BISULFATE 75 MG TABLET (FP) PO SCH (11:07)
[2018-10-30] MEDS: TAMSULOSIN HCL 0.4 MG CAP PO SCH (11:07)
[2018-10-30] MEDS: ASPIRIN COATED 81 MG TABLET.EC PO SCH (11:07)
[2018-10-30] MEDS: ISOSORBIDE MONONITRATE 30 MG TAB.SR.24H (FP) PO SCH (11:07)
[2018-10-30] MEDS: NIFEdipine E.R. 90 MG TABLET (FP) PO SCH (11:07)
--- NOTE | 2018-10-30 11:57 | PN ---
Progress Note (short form) - Note Progress Note: Renal follow up for CKD Pt seen and examined at the bedside awake and alert continues to have body aches continues to have cough making urine legs remain swollen no cp, fever, chills, N/V/D Vital Signs Temperature 97.9 F 10/30/18 05:34 Pulse Rate 73 10/30/18 05:34 Respiratory Rate 20 10/30/18 05:34 Blood Pressure 132/72 10/30/18 05:34 O2 Sat by Pulse Oximetry (%) 97 10/29/18 21:00 Intake & Output 10/27/18 10/28/18 10/29/18 10/30/18 23:59 23:59 23:59 23:59 Intake Total 300 1380 970 350 Output Total 1700 900 600 Balance 300 -320 70 -250 Weight 128.367 kg 129.727 kg 130.816 kg NAD RRR, no M/R mild congetion left lung base soft obese, NT/ND ++ Left UE edema ++ bilateral LE edema CBC, BMP 10/29/18 05:30 10/30/18 05:30 Current Medications Acetaminophen (Tylenol -) 650 mg PO Q6H PRN PRN Reason: PAIN LEVEL 1-5 Last Admin: 10/30/18 11:07 Dose: 650 mg Aspirin (Ecotrin -) 81 mg PO DAILY [facility] Last Admin: 10/30/18 11:07 Dose: 81 mg Clopidogrel Bisulfate (Plavix -) 75 mg PO DAILY [facility] Last Admin: 10/30/18 11:07 Dose: 75 mg Ergocalciferol (Drisdol -) 50,000 unit PO Mo [facility] Last Admin: 10/26/18 16:12 Dose: 50,000 unit Guaifenesin (Diabetic Tussin Dm -) 5 ml PO Q6H PRN PRN Reason: COUGH Last Admin: 10/30/18 11:06 Dose: 5 ml Heparin Sodium (Porcine) (Heparin -) 5,000 unit SQ TID [facility] Last Admin: 10/30/18 06:58 Dose: 5,000 unit Hydralazine HCl (Apresoline -) 50 mg PO TID [facility] Last Admin: 10/30/18 06:58 Dose: 50 mg Furosemide 100 mg/ Dextrose 50 mls @ 5 mls/hr IVPB TITR [facility] Insulin Aspart (Novolog Vial Sliding Scale -) 1 vial SQ TIDAC [facility]; Protocol Last Admin: 10/30/18 06:58 Dose: Not Given Isosorbide Mononitrate (Imdur -) 30 mg PO DAILY [facility] Last Admin: 10/30/18 11:07 Dose: 30 mg Labetalol HCl (Normodyne -) 300 mg PO BID [facility] Last Admin: 10/30/18 11:06 Dose: 300 mg Nifedipine (Procardia Xl -) 90 mg PO DAILY [facility] Last Admin: 10/30/18 11:07 Dose: 90 mg Ranolazine (Ranexa -) 500 mg PO BID [facility] Last Admin: 10/30/18 11:07 Dose: 500 mg Tamsulosin HCl (Flomax -) 0.4 mg PO 0830 [facility] Last Admin: 10/30/18 11:07 Dose: 0.4 mg 58 year old gentleman with hx of CKD with proteinuria, CHF, CAD s/p PCI, Hypertension, hyperlipidemia who preesnted from home with LE swelling and sob and admitted for CHF exacerbation with Cr of 2.4-2.6. #CHF exacerbation #Upper extremity edema r/o DVT #CKD with proteinuria, recovering from GABI #CAD #HLD BUN/Cr uptrending however weights incersing as well. Suspect worsening Cardio- renal syndrome. Dicussed case with Cardiology. Will start Lasix gtt at 10mg per hour. Trend renal function and dialy weights Urine studies consistent with nephrotic range proteinuria Continue Nifedpine ER, Labetalol 300mg BID, Hydralazine. Titrate to acheive goal BP < 140/90 continue flomax Thank you Mansoor Quiroz DO
[2018-10-30] MEDS ORDERED: FUROSEMIDE INJECTION 100 MG in DEXTROSE 5%-WATER - 40 ML IVPB SCH (12:00)
[2018-10-30] MEDS: WATER IVPB SCH (18:45)
[2018-10-30] MEDS: FUROSEMIDE IVPB SCH (18:45)
[2018-10-30] MEDS: DEXTROSE 5% IVPB SCH (18:45)
[2018-10-31] MEDS: ACETAMINOPHEN 325 MG TABLET (FP) PO PRN ×2 (02:27→20:20)
[2018-10-31] MEDS: HEPARIN NA (PORCINE) 5,000 UNITS/ML 1ML VIAL SQ SCH ×3 (05:54→21:58)
[2018-10-31] MEDS: hydrALAZINE HCL 50 MG TABLET (FP) PO SCH ×3 (06:27→21:57)
[2018-10-31] MEDS: INSULIN SLIDING SCALE (NOVOLOG) 1 VIAL SQ SCH ×3 (06:27→18:21)
[2018-10-31 08:17] LABS: ALBUMIN 2.4 g/dl (3.4-5.0); ALK PHOS 123 U/L (45-117); ANION GAP 9 MMOL/L (8-16); BILIRUBIN,TOTAL 0.6 mg/dL (0.2-1); BLOOD UREA NITROGEN 67 mg/dL (7-18); CALCIUM 8.1 mg/dL (8.5-10.1); CHLORIDE 109 mmol/L (98-107); CO2 24 mmol/L (21-32); CREATININE 4.1 mg/dL (0.55-1.3); GLUCOSE,RANDOM 118 mg/dL (74-106); MAGNESIUM 1.9 mg/dL (1.8-2.4); PHOSPHOROUS 4.7 mg/dL (2.5-4.9); POTASSIUM 4.2 mmol/L (3.5-5.1); SGOT/AST 20 U/L (15-37); SGPT/ALT 31 U/L (13-61); SODIUM 142 mmol/L (136-145); TOT PROT 6.1 g/dl (6.4-8.2)
[2018-10-31] MEDS ORDERED: DEXTROSE 5%-WATER - 50 ML IVPB ONE (08:52)
[2018-10-31] MEDS ORDERED: FUROSEMIDE 100 MG/10 ML INJECTABLE VIAL ONE (08:52)
[2018-10-31] MEDS: TAMSULOSIN HCL 0.4 MG CAP PO SCH (09:27)
[2018-10-31] MEDS: RANOLAZINE E.R. 500 MG TABLET (FP) PO SCH ×2 (09:27→21:57)
[2018-10-31] MEDS: LABETALOL HCL 100 MG TABLET (FP) PO SCH ×2 (09:28→21:58)
[2018-10-31] MEDS: CLOPIDOGREL BISULFATE 75 MG TABLET (FP) PO SCH (09:28)
[2018-10-31] MEDS: guaiFENesin/D-M SUGAR-FREE/ACLHOL-FREE 118 ML BOTTLE PO PRN ×2 (09:28→21:59)
[2018-10-31] MEDS: ISOSORBIDE MONONITRATE 30 MG TAB.SR.24H (FP) PO SCH (09:28)
[2018-10-31] MEDS: NIFEdipine E.R. 90 MG TABLET (FP) PO SCH (09:28)
[2018-10-31] MEDS: ASPIRIN COATED 81 MG TABLET.EC PO SCH (09:28)
--- NOTE | 2018-10-31 09:50 | PN ---
Progress Note, Physician Chief Complaint: Feeling better Weights recorded stable. History of Present Illness: TELE: NSR BP well controlled - Current Medication List Current Medications: Active Medications Acetaminophen (Tylenol -) 650 mg PO Q6H PRN PRN Reason: PAIN LEVEL 1-5 Last Admin: 10/31/18 02:27 Dose: 650 mg Aspirin (Ecotrin -) 81 mg PO DAILY [facility] Last Admin: 10/31/18 09:28 Dose: 81 mg Clopidogrel Bisulfate (Plavix -) 75 mg PO DAILY [facility] Last Admin: 10/31/18 09:28 Dose: 75 mg Ergocalciferol (Drisdol -) 50,000 unit PO Mo [facility] Last Admin: 10/26/18 16:12 Dose: 50,000 unit Guaifenesin (Diabetic Tussin Dm -) 5 ml PO Q6H PRN PRN Reason: COUGH Last Admin: 10/31/18 09:28 Dose: 5 ml Heparin Sodium (Porcine) (Heparin -) 5,000 unit SQ TID [facility] Last Admin: 10/31/18 05:54 Dose: 5,000 unit Hydralazine HCl (Apresoline -) 50 mg PO TID [facility] Last Admin: 10/31/18 06:27 Dose: 50 mg Furosemide 100 mg/ Dextrose 60 mls @ 6 mls/hr IVPB TITR [facility]; Protocol Last Admin: 10/30/18 18:45 Dose: 10 mg/hr, 6 mls/hr Insulin Aspart (Novolog Vial Sliding Scale -) 1 vial SQ TIDAC [facility]; Protocol Last Admin: 10/31/18 06:27 Dose: Not Given Isosorbide Mononitrate (Imdur -) 30 mg PO DAILY [facility] Last Admin: 10/31/18 09:28 Dose: 30 mg Labetalol HCl (Normodyne -) 300 mg PO BID [facility] Last Admin: 10/31/18 09:28 Dose: 300 mg Nifedipine (Procardia Xl -) 90 mg PO DAILY [facility] Last Admin: 10/31/18 09:28 Dose: 90 mg Ranolazine (Ranexa -) 500 mg PO BID [facility] Last Admin: 10/31/18 09:27 Dose: 500 mg Tamsulosin HCl (Flomax -) 0.4 mg PO 0830 [facility] Last Admin: 10/31/18 09:27 Dose: 0.4 mg - Objective Vital Signs: Vital Signs Temperature 99.9 F H 10/31/18 06:00 Pulse Rate 73 10/31/18 06:00 Respiratory Rate 18 10/31/18 06:00 Blood Pressure 121/56 L 10/31/18 06:00 O2 Sat by Pulse Oximetry (%) 92 L 10/30/18 21:00 Constitutional: Yes: No Distress Cardiovascular: Yes: Regular Rate and Rhythm Respiratory: Yes: Other (decreased breath sounds bases.) Gastrointestinal: Yes: Soft, Abdomen, Obese Edema: Yes Edema: LLE: 2+, RLE: 2+ Neurological: Yes: Alert ...Motor Strength: WNL Labs: CBC, BMP 10/29/18 05:30 10/31/18 06:55 INR, PTT INR 1.27 (0.83-1.09) H 10/26/18 09:50 Laboratory Tests 10/31/18 06:55 Sodium 142 BUN 67 H Creatinine 4.1 H Magnesium 1.9 - ....Imaging EKG: Image Reviewed Assessment/Plan Assessment/Plan 1. Acute systolic HF exacerbation: - EF 40-45% - cont labetolol, not on ACEI/ARB for CKD - continue hydralzine and imdur. BP is controlled. -Possible cardiorenal syndrome -After d/w Renal yesterday, decision made for trial Lasix gtts as he appeared volume overloaded. -Subjectively feeling better, but weights stable and creat is up. -May need to hold lasix and consider RHC to assess hemodynamics. -Will d/w renal 2. CKD - was planned for outpatient kidney biopsy, not done yet - Cr 2.4 on admission, rising. above. - renal following 3. CAD: - s/p FER most recently 09/2017, 10/2017 - on aspirin and plavix, continue 4. HTN: - stable, continue home meds 5. Pulm HTN: - mild on echo, likely due to diastolic dysfunction 6. Cerebral atherosclerosis: - LICA plaque noted 2016 - on aspirin, plavix, statin 7. PAD: - hx L SFA stent, [employer] of left 2017 - aspirin, statin, plavix 8. HLD: - cont statin 9. DM: - manage per primary
--- NOTE | 2018-10-31 10:27 | PN ---
Physical Exam: SUBJECTIVE: Patient seen and examined, feels short of breath with minimal exertion, reports has been urinating, no abdominal pain, fevers, chills, new cough or urinary symptoms. OBJECTIVE: Vital Signs Period Temp Pulse Resp BP Sys/Lopez Pulse Ox Last 24 Hr 97.7 F-99.9 F 69-75 16-18 106-144/56-72 92 Intake & Output 10/28/18 10/29/18 10/30/18 10/31/18 23:59 23:59 23:59 23:59 Intake Total 1380 970 350 Output Total 1700 900 600 Balance -320 70 -250 Weight 286 lb 288 lb 6.4 oz 289 lb GENERAL: mild dyspneic but able to speak in full sentences CVS:S1s2 irregular Chest: decreased breath sounds at bases, L>R Abdomen:soft, distended, NT throughout, positive bowel sounds Extremities unchanged pitting 2+ pedal edema Psych: co-operative Laboratory Results - last 24 hr 10/30/18 10/30/18 10/30/18 05:30 12:17 17:03 Sodium Potassium Chloride Carbon Dioxide Anion Gap BUN Creatinine Creat Clearance w eGFR POC Glucometer 96 109 Random Glucose Calcium Phosphorus Magnesium Total Bilirubin AST ALT Alkaline Phosphatase B-Natriuretic Peptide 88510.1 H Total Protein Albumin 10/31/18 10/31/18 06:21 06:55 Sodium 142 Potassium 4.2 Chloride 109 H Carbon Dioxide 24 Anion Gap 9 BUN 67 H Creatinine 4.1 H Creat Clearance w eGFR 15.12 POC Glucometer 114 Random Glucose 118 H Calcium 8.1 L Phosphorus 4.7 Magnesium 1.9 Total Bilirubin 0.6 AST 20 ALT 31 Alkaline Phosphatase 123 H B-Natriuretic Peptide Total Protein 6.1 L Albumin 2.4 L Active Medications Generic Name Dose Route Start Last Admin Trade Name Freq PRN Reason Stop Dose Admin Acetaminophen 650 mg 10/28/18 16:55 10/31/18 02:27 Tylenol - PO 650 mg Q6H PRN Administration PAIN LEVEL 1-5 Aspirin 81 mg 10/27/18 10:00 10/31/18 09:28 Ecotrin - PO 81 mg DAILY [facility] Administration Clopidogrel Bisulfate 75 mg 10/27/18 10:00 10/31/18 09:28 Plavix - PO 75 mg DAILY [facility] Administration Ergocalciferol 50,000 unit 10/26/18 12:00 10/26/18 16:12 Drisdol - PO 50,000 unit Mo S[facility] Administration Guaifenesin 5 ml 10/29/18 20:47 10/31/18 09:28 Diabetic Tussin Dm - PO 5 ml Q6H PRN Administration COUGH Heparin Sodium (Porcine) 5,000 unit 10/28/18 22:00 10/31/18 05:54 Heparin - SQ 5,000 unit TID [facility] Administration Hydralazine HCl 50 mg 10/26/18 14:00 10/31/18 06:27 Apresoline - PO 50 mg TID [facility] Administration Furosemide 100 mg/ Dextrose 60 mls @ 6 mls/hr 10/30/18 12:05 10/30/18 18:45 IVPB 10 mg/hr TITR [facility] 6 mls/hr Administration Protocol 10 MG/HR Insulin Aspart 1 vial 10/26/18 16:30 10/31/18 06:27 Novolog Vial Sliding Scale - SQ Not Given TIDAC [facility] Protocol Isosorbide Mononitrate 30 mg 10/27/18 10:00 10/31/18 09:28 Imdur - PO 30 mg DAILY [facility] Administration Labetalol HCl 300 mg 10/26/18 22:00 10/31/18 09:28 Normodyne - PO 300 mg BID [facility] Administration Nifedipine 90 mg 10/27/18 10:00 10/31/18 09:28 Procardia Xl - PO 90 mg DAILY [facility] Administration Ranolazine 500 mg 10/26/18 22:00 10/31/18 09:27 Ranexa - PO 500 mg BID [facility] Administration Tamsulosin HCl 0.4 mg 10/27/18 08:30 10/31/18 09:27 Flomax - PO 0.4 mg 0830 [facility] Administration CXR left pleural effusion ASSESSMENT/PLAN: 58 yom with PMX of CAD s/p Stage FER PCI 09/2017/10/2017, HTN, HLD, NIDDM, CKD stage III, (recent renal dysfunction, was planned for possible PCI), PAD s/p SFA PCI 2016 admitted with CHF -Acute systolic heart failure exacerbation -CAD s/p staged PCI 09/2017 and 10/2017 -Cardiomyopathy, suspect ischemia EF 40-45% -Left pleural effusion, suspect transudative based on current presentation -HTN -HLD -NIDDM -CKD stage III -PAD s/p SFA PCI 2016 Plan: Cr rising, Weight increased. Looks volume overloaded and short of breath with minimal activity. On lasix drip. Discuss with cardiology/nephrology, Monitor left pleural effusion, clinically suspicious for transudative. LUE duplex neg for DVT Close volume status monitoring. Counseled patient on need for strict I/Os, discussed with nursing. Continue ASA/plavix/labetalol/hydralazine/nifedipine/ranexa/Imdur. ISS, diabetic diet Flomax DVTPPX heparin PT eval, encourage OOB Dispo pending clinical improvement. Plan discussed with patient and nursing, all questions answered. Visit type - Emergency Visit Emergency Visit: Yes ED Registration Date: 10/26/18 Care time: The patient presented to the Emergency Department on the above date and was hospitalized for further evaluation of their emergent condition. - New Patient This patient is new to me today: No - Critical Care Critical Care patient: No - Discharge Referral Referred to [facility] Med P.C.: No
--- NOTE | 2018-10-31 11:01 | PN ---
Progress Note, Physician Chief Complaint: The patient seen in his room in telemetry. On bed. Complains of pains in the back, all over the body. The edema of the LE persists. Patient claims that the urine output is significantly more than before. But the weight is reportedly more than yesterday!!! Poosibly taken wrong. History of Present Illness: This is a 58 year old gentleman with hx of CKD with proteinuria , CHF, CAD s/p PCI, Hypertension, hyperlipidemia who presented from home with LE swelling and sob and admitted for CHF exacerbation. Pt was planned to have a renal biopsy as an outpatient but did not get on IR schedule the week after he got discharged and now is back on ASA and Plavix. - Current Medication List Current Medications: Active Medications Acetaminophen (Tylenol -) 650 mg PO Q6H PRN PRN Reason: PAIN LEVEL 1-5 Last Admin: 10/31/18 02:27 Dose: 650 mg Aspirin (Ecotrin -) 81 mg PO DAILY [facility] Last Admin: 10/31/18 09:28 Dose: 81 mg Clopidogrel Bisulfate (Plavix -) 75 mg PO DAILY [facility] Last Admin: 10/31/18 09:28 Dose: 75 mg Ergocalciferol (Drisdol -) 50,000 unit PO Mo [facility] Last Admin: 10/26/18 16:12 Dose: 50,000 unit Guaifenesin (Diabetic Tussin Dm -) 5 ml PO Q6H PRN PRN Reason: COUGH Last Admin: 10/31/18 09:28 Dose: 5 ml Heparin Sodium (Porcine) (Heparin -) 5,000 unit SQ TID [facility] Last Admin: 10/31/18 05:54 Dose: 5,000 unit Hydralazine HCl (Apresoline -) 50 mg PO TID [facility] Last Admin: 10/31/18 06:27 Dose: 50 mg Furosemide 100 mg/ Dextrose 60 mls @ 6 mls/hr IVPB TITR [facility]; Protocol Last Admin: 10/30/18 18:45 Dose: 10 mg/hr, 6 mls/hr Insulin Aspart (Novolog Vial Sliding Scale -) 1 vial SQ TIDAC [facility]; Protocol Last Admin: 10/31/18 06:27 Dose: Not Given Isosorbide Mononitrate (Imdur -) 30 mg PO DAILY [facility] Last Admin: 10/31/18 09:28 Dose: 30 mg Labetalol HCl (Normodyne -) 300 mg PO BID [facility] Last Admin: 10/31/18 09:28 Dose: 300 mg Nifedipine (Procardia Xl -) 90 mg PO DAILY [facility] Last Admin: 10/31/18 09:28 Dose: 90 mg Ranolazine (Ranexa -) 500 mg PO BID [facility] Last Admin: 10/31/18 09:27 Dose: 500 mg Tamsulosin HCl (Flomax -) 0.4 mg PO 829 [facility] Last Admin: 10/31/18 09:27 Dose: 0.4 mg - Objective Vital Signs: Vital Signs Temperature 99.9 F H 10/31/18 06:00 Pulse Rate 73 10/31/18 06:00 Respiratory Rate 18 10/31/18 06:00 Blood Pressure 121/56 L 10/31/18 06:00 O2 Sat by Pulse Oximetry (%) 92 L 10/30/18 21:00 Constitutional: Yes: No Distress, Anxious Eyes: Yes: Conjunctiva Clear HENT: Yes: Normocephalic Neck: Yes: Trachea Midline Cardiovascular: Yes: Regular Rate and Rhythm, Tachycardia, S1, S2 Respiratory: Yes: CTA Bilaterally, Diminished Gastrointestinal: Yes: Normal Bowel Sounds, Abdomen, Obese Edema: Yes Edema: LLE: 3+, RLE: 3+ Labs: CBC, BMP 10/29/18 05:30 10/31/18 06:55 INR, PTT INR 1.27 (0.83-1.09) H 10/26/18 09:50 Problem List - Problems (1) Anemia Code(s): D64.9 - ANEMIA, UNSPECIFIED (2) CAD (coronary artery disease) Code(s): I25.10 - ATHSCL HEART DISEASE OF [place] CORONARY ARTERY W/O ANG PCTRS (3) CHF (congestive heart failure) Code(s): I50.9 - HEART FAILURE, UNSPECIFIED Qualifiers: Heart failure type: systolic Heart failure chronicity: acute on chronic Qualified Code(s): I50.23 - Acute on chronic systolic (congestive) heart failure (4) CKD (chronic kidney disease) stage 4, GFR 15-29 ml/min Code(s): N18.4 - CHRONIC KIDNEY DISEASE, STAGE 4 (SEVERE) (5) Heart failure, diastolic, with acute decompensation Code(s): I50.33 - ACUTE ON CHRONIC DIASTOLIC (CONGESTIVE) HEART FAILURE (6) Pleural effusion, bilateral Code(s): J90 - PLEURAL EFFUSION, NOT ELSEWHERE CLASSIFIED (7) GABI (acute kidney injury) Code(s): N17.9 - ACUTE KIDNEY FAILURE, UNSPECIFIED (8) Diabetic ulcer of left foot Code(s): E11.621 - TYPE 2 DIABETES MELLITUS WITH FOOT ULCER; L97.529 - NON- PRESSURE CHRONIC ULCER OTH PRT LEFT FOOT W UNSP SEVERITY (9) Gangrenous toe Code(s): I96 - GANGRENE, NOT ELSEWHERE CLASSIFIED (10) PAD (peripheral artery disease) Code(s): I73.9 - PERIPHERAL VASCULAR DISEASE, UNSPECIFIED (11) Type 2 diabetes mellitus with diabetic neuropathy, unspecified Code(s): E11.40 - TYPE 2 DIABETES MELLITUS WITH DIABETIC NEUROPATHY, UNSP (12) Hypertension Code(s): I10 - ESSENTIAL (PRIMARY) HYPERTENSION Qualifiers: Assessment/Plan This is a 58 year old gentleman with hx of CKD with proteinuria , CHF, CAD s/p PCI, Hypertension, hyperlipidemia who presented from home with LE swelling and sob and admitted for CHF exacerbation The patient has been started on IV Lasix infusion, with good diuretic response. IMP: The azotemia is worsening. infusion well tolerated. The worsening of the Azotemia may reflect altered renal hemodynamics. But will continue the current Lasix infusion in the hope of relieving some degree of the generalized edema. not a candidate for ACEI or ARBs at this time. ? Ranexa a factor in the rising azotemia, though less likely. Will watch closely. Discussed with Dr. Alexis. Will continue the Lasix infusion. Thank you. Will follow. Fauzia Aguila MD
[2018-10-31] MEDS: WATER IVPB SCH (14:58)
[2018-10-31] MEDS: FUROSEMIDE IVPB SCH (14:58)
[2018-10-31] MEDS: DEXTROSE 5% IVPB SCH (14:58)
[2018-10-31] MEDS ORDERED: PT OWN MED DRAWER 7, Y5N ONE (20:17)
[2018-11-01] MEDS: INSULIN SLIDING SCALE (NOVOLOG) 1 VIAL SQ SCH ×3 (06:19→17:11)
[2018-11-01] MEDS: hydrALAZINE HCL 50 MG TABLET (FP) PO SCH ×3 (06:20→21:27)
[2018-11-01] MEDS: HEPARIN NA (PORCINE) 5,000 UNITS/ML 1ML VIAL SQ SCH ×3 (06:20→21:27)
[2018-11-01 07:51] LABS: BASO % 0.9 % (0-2.0); EOS % 0.1 % (0-4.5); HEMOGLOBIN 7.8 GM/dL (11.7-16.9); LYMPH % 9.2 % (8-40); MCH 28.4 pg (25.7-33.7); MCHC 32.5 g/dl (32.0-35.9); MEAN CELL VOLUME 87.3 fl (80-96); MEAN PLT VOLUME 7.3 fl (7.5-11.1); NEUT % 77.8 % (42.8-82.8); PLATELET COUNT 249 K/MM3 (134-434); RBC 2.75 M/mm3 (4.00-5.60); RDW 14.7 % (11.9-15.9); WHITE BLOOD COUNT 3.4 K/mm3 (4.0-10.0)
[2018-11-01] MEDS: LABETALOL HCL 100 MG TABLET (FP) PO SCH ×2 (08:58→21:27)
[2018-11-01 08:59] LABS: ALBUMIN 2.4 g/dl (3.4-5.0); ALK PHOS 127 U/L (45-117); ANION GAP 9 MMOL/L (8-16); BILIRUBIN,TOTAL 0.5 mg/dL (0.2-1); BLOOD UREA NITROGEN 73 mg/dL (7-18); CALCIUM 7.8 mg/dL (8.5-10.1); CHLORIDE 106 mmol/L (98-107); CO2 23 mmol/L (21-32); CREATININE 4.3 mg/dL (0.55-1.3); GLUCOSE,RANDOM 134 mg/dL (74-106); POTASSIUM 4.4 mmol/L (3.5-5.1); SGOT/AST 26 U/L (15-37); SGPT/ALT 35 U/L (13-61); SODIUM 138 mmol/L (136-145); TOT PROT 6.2 g/dl (6.4-8.2)
[2018-11-01] MEDS: ASPIRIN COATED 81 MG TABLET.EC PO SCH (08:59)
[2018-11-01] MEDS: ISOSORBIDE MONONITRATE 30 MG TAB.SR.24H (FP) PO SCH (08:59)
[2018-11-01] MEDS: TAMSULOSIN HCL 0.4 MG CAP PO SCH (08:59)
[2018-11-01] MEDS: RANOLAZINE E.R. 500 MG TABLET (FP) PO SCH ×2 (08:59→21:27)
[2018-11-01] MEDS: CLOPIDOGREL BISULFATE 75 MG TABLET (FP) PO SCH (08:59)
[2018-11-01] MEDS: guaiFENesin/D-M SUGAR-FREE/ACLHOL-FREE 118 ML BOTTLE PO PRN (08:59)
[2018-11-01] MEDS: NIFEdipine E.R. 90 MG TABLET (FP) PO SCH (08:59)
--- NOTE | 2018-11-01 10:57 | PN ---
Progress Note, Physician Chief Complaint: weight: no change No sig diuresis based on Is/Os History of Present Illness: TELE: NSR - Current Medication List Current Medications: Active Medications Acetaminophen (Tylenol -) 650 mg PO Q6H PRN PRN Reason: PAIN LEVEL 1-5 Last Admin: 10/31/18 20:20 Dose: 650 mg Aspirin (Ecotrin -) 81 mg PO DAILY [facility] Last Admin: 11/01/18 08:59 Dose: 81 mg Clopidogrel Bisulfate (Plavix -) 75 mg PO DAILY [facility] Last Admin: 11/01/18 08:59 Dose: 75 mg Ergocalciferol (Drisdol -) 50,000 unit PO Mo [facility] Last Admin: 10/26/18 16:12 Dose: 50,000 unit Guaifenesin (Diabetic Tussin Dm -) 5 ml PO Q6H PRN PRN Reason: COUGH Last Admin: 11/01/18 08:59 Dose: 5 ml Heparin Sodium (Porcine) (Heparin -) 5,000 unit SQ TID [facility] Last Admin: 11/01/18 06:20 Dose: 5,000 unit Hydralazine HCl (Apresoline -) 50 mg PO TID [facility] Last Admin: 11/01/18 06:20 Dose: 50 mg Furosemide 100 mg/ Dextrose 60 mls @ 6 mls/hr IVPB TITR [facility]; Protocol Last Admin: 10/31/18 14:58 Dose: 10 mg/hr, 6 mls/hr Insulin Aspart (Novolog Vial Sliding Scale -) 1 vial SQ TIDAC [facility]; Protocol Last Admin: 11/01/18 06:19 Dose: Not Given Isosorbide Mononitrate (Imdur -) 30 mg PO DAILY [facility] Last Admin: 11/01/18 08:59 Dose: 30 mg Labetalol HCl (Normodyne -) 300 mg PO BID [facility] Last Admin: 11/01/18 08:58 Dose: 300 mg Nifedipine (Procardia Xl -) 90 mg PO DAILY [facility] Last Admin: 11/01/18 08:59 Dose: 90 mg Ranolazine (Ranexa -) 500 mg PO BID [facility] Last Admin: 11/01/18 08:59 Dose: 500 mg Tamsulosin HCl (Flomax -) 0.4 mg PO 0830 [facility] Last Admin: 11/01/18 08:59 Dose: 0.4 mg - Objective Vital Signs: Vital Signs Temperature 99 F 11/01/18 06:00 Pulse Rate 72 11/01/18 06:00 Respiratory Rate 20 11/01/18 06:00 Blood Pressure 145/72 11/01/18 06:00 O2 Sat by Pulse Oximetry (%) 96 10/31/18 21:00 Constitutional: Yes: No Distress Eyes: Yes: Conjunctiva Clear Cardiovascular: Yes: Regular Rate and Rhythm Respiratory: Yes: Other (decreased breath sounds bases, o/w CTA) Gastrointestinal: Yes: Soft Edema: Yes Edema: LLE: 2+, RLE: 2+ Neurological: Yes: Alert, Oriented Labs: CBC, BMP 11/01/18 06:30 11/01/18 06:30 INR, PTT INR 1.27 (0.83-1.09) H 10/26/18 09:50 - ....Imaging EKG: Image Reviewed Assessment/Plan Assessment/Plan 1. Acute systolic HF exacerbation: - EF 40-45% - cont labetolol, not on ACEI/ARB for CKD - continue hydralzine and imdur. BP is controlled. -Possible cardiorenal syndrome -After d/w Renal 10/31, decision made for trial Lasix gtts as he appeared volume overloaded. -Creat continues to rise as does BUN, weight stable. -May need to hold lasix and consider RHC to assess hemodynamics. -Hypoalbuminemia may also be contributing to edema. 2. CKD - was planned for outpatient kidney biopsy, not done yet - Cr 2.4 on admission, rising. Plan as above. - renal following 3. CAD: - s/p FER most recently 09/2017, 10/2017 - on aspirin and plavix, continue 4. HTN: - stable, continue home meds 5. Pulm HTN: - mild on echo, likely due to diastolic dysfunction 6. Cerebral atherosclerosis: - LICA plaque noted 2017 - on aspirin, plavix, statin 7. 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 HLD: - cont statin 9. DM: - manage per primary
[2018-11-01] MEDS ORDERED: ALBUMIN HUMAN 25% 12.5 GM/50 ML VIAL IVPB SCH (12:00)
[2018-11-01] MEDS ORDERED: ALBUMIN HUMAN 25% 100 ML VIAL IVPB SCH (12:00)
--- NOTE | 2018-11-01 12:00 | PN ---
Progress Note, Physician Chief Complaint: The patient seen in his room in telemetry. On bed. Complains of aches and pains in the back, and all over the body. The edema of the LE persists. Patient claims that the urine output is significantly more than before. History of Present Illness: This is a 58 year old gentleman with hx of CKD with proteinuria , CHF, CAD s/p PCI, Hypertension, hyperlipidemia who presented from home with LE swelling and sob and admitted for CHF exacerbation. - Current Medication List Current Medications: Active Medications Acetaminophen (Tylenol -) 650 mg PO Q6H PRN PRN Reason: PAIN LEVEL 1-5 Last Admin: 10/31/18 20:20 Dose: 650 mg Albumin Human (Albumin Human 25% -) 12.5 gm IVPB Q30M [facility] Stop: 11/01/18 12:01 Aspirin (Ecotrin -) 81 mg PO DAILY [facility] Last Admin: 11/01/18 08:59 Dose: 81 mg Clopidogrel Bisulfate (Plavix -) 75 mg PO DAILY [facility] Last Admin: 11/01/18 08:59 Dose: 75 mg Ergocalciferol (Drisdol -) 50,000 unit PO Mo [facility] Last Admin: 10/26/18 16:12 Dose: 50,000 unit Guaifenesin (Diabetic Tussin Dm -) 5 ml PO Q6H PRN PRN Reason: COUGH Last Admin: 11/01/18 08:59 Dose: 5 ml Heparin Sodium (Porcine) (Heparin -) 5,000 unit SQ TID [facility] Last Admin: 11/01/18 06:20 Dose: 5,000 unit Hydralazine HCl (Apresoline -) 50 mg PO TID [facility] Last Admin: 11/01/18 06:20 Dose: 50 mg Furosemide 100 mg/ Dextrose 60 mls @ 6 mls/hr IVPB TITR [facility]; Protocol Last Admin: 10/31/18 14:58 Dose: 10 mg/hr, 6 mls/hr Insulin Aspart (Novolog Vial Sliding Scale -) 1 vial SQ TIDAC [facility]; Protocol Last Admin: 11/01/18 06:19 Dose: Not Given Isosorbide Mononitrate (Imdur -) 30 mg PO DAILY [facility] Last Admin: 11/01/18 08:59 Dose: 30 mg Labetalol HCl (Normodyne -) 300 mg PO BID [facility] Last Admin: 11/01/18 08:58 Dose: 300 mg Nifedipine (Procardia Xl -) 90 mg PO DAILY [facility] Last Admin: 11/01/18 08:59 Dose: 90 mg Ranolazine (Ranexa -) 500 mg PO BID [facility] Last Admin: 11/01/18 08:59 Dose: 500 mg Tamsulosin HCl (Flomax -) 0.4 mg PO 0830 [facility] Last Admin: 11/01/18 08:59 Dose: 0.4 mg - Objective Vital Signs: Vital Signs Temperature 99 F 11/01/18 06:00 Pulse Rate 72 11/01/18 06:00 Respiratory Rate 20 11/01/18 06:00 Blood Pressure 145/72 11/01/18 06:00 O2 Sat by Pulse Oximetry (%) 96 10/31/18 21:00 Constitutional: Yes: Well Nourished, Anxious Eyes: Yes: Conjunctiva Clear HENT: Yes: Normocephalic Neck: Yes: Trachea Midline Respiratory: Yes: Diminished, Poor Air Entry Gastrointestinal: Yes: Normal Bowel Sounds, Soft Edema: Yes Edema: RUE: 3+, LLE: 3+ Labs: CBC, BMP 11/01/18 06:30 11/01/18 06:30 INR, PTT INR 1.27 (0.83-1.09) H 10/26/18 09:50 Problem List - Problems (1) Anemia Code(s): D64.9 - ANEMIA, UNSPECIFIED (2) CAD (coronary artery disease) Code(s): I25.10 - ATHSCL HEART DISEASE OF [place] CORONARY ARTERY W/O ANG PCTRS (3) CHF (congestive heart failure) Code(s): I50.9 - HEART FAILURE, UNSPECIFIED Qualifiers: Heart failure type: systolic Heart failure chronicity: acute on chronic Qualified Code(s): I50.23 - Acute on chronic systolic (congestive) heart failure (4) CKD (chronic kidney disease) stage 4, GFR 15-29 ml/min Code(s): N18.4 - CHRONIC KIDNEY DISEASE, STAGE 4 (SEVERE) (5) Heart failure, diastolic, with acute decompensation Code(s): I50.33 - ACUTE ON CHRONIC DIASTOLIC (CONGESTIVE) HEART FAILURE (6) Pleural effusion, bilateral Code(s): J90 - PLEURAL EFFUSION, NOT ELSEWHERE CLASSIFIED (7) GABI (acute kidney injury) Code(s): N17.9 - ACUTE KIDNEY FAILURE, UNSPECIFIED (8) Diabetic ulcer of left foot Code(s): E11.621 - TYPE 2 DIABETES MELLITUS WITH FOOT ULCER; L97.529 - NON- PRESSURE CHRONIC ULCER OTH PRT LEFT FOOT W UNSP SEVERITY (9) Gangrenous toe Code(s): I96 - GANGRENE, NOT ELSEWHERE CLASSIFIED (10) PAD (peripheral artery disease) Code(s): I73.9 - PERIPHERAL VASCULAR DISEASE, UNSPECIFIED (11) Type 2 diabetes mellitus with diabetic neuropathy, unspecified Code(s): E11.40 - TYPE 2 DIABETES MELLITUS WITH DIABETIC NEUROPATHY, UNSP (12) Hypertension Code(s): I10 - ESSENTIAL (PRIMARY) HYPERTENSION Qualifiers: Assessment/Plan This is a 58 year old gentleman with hx of CKD with proteinuria , CHF, CAD s/p PCI, Hypertension, hyperlipidemia who presented from home with LE swelling and sob and admitted for CHF exacerbation The patient has been started on IV Lasix infusion, with good diuretic response. Urine volume documented does not concur with the patient's statement that he is putting out a " lot of urine". IMP: The azotemia is worsening. lasix infusion well tolerated. The worsening of the Azotemia may reflect altered renal hemodynamics and renal hypoperfusion. Will continue the current Lasix infusion in the hope of relieving some degree of the generalized edema. Will give Albumin infusion in view of Hypoalbuminemia. e. Will continue the Lasix infusion. Will trend the Renal functions. ideally should have Renal biopsy. Thank you. Will follow. Fauzia Aguila MD
[2018-11-01] MEDS ORDERED: FUROSEMIDE 40 MG/4 ML INJECTABLE VIAL ONE (14:40)
--- NOTE | 2018-11-01 14:53 | PN ---
Physical Exam: SUBJECTIVE: Patient seen and examined, feels short of breath with turning position. Not urinating a lot, leg swelling. OBJECTIVE: Vital Signs Period Temp Pulse Resp BP Sys/Lopez Pulse Ox Last 24 Hr 98.4 F-99.1 F 72-85 20-20 140-153/72-78 96-96 Intake & Output 10/29/18 10/30/18 10/31/18 11/01/18 23:59 23:59 23:59 23:59 Intake Total 970 350 780 Output Total 900 600 150 600 Balance 70 -250 630 -600 Weight 288 lb 6.4 oz 289 lb 289 lb 3.2 oz GENERAL: mild dyspneic but able to speak in full sentences CVS:S1s2 irregular Chest: decreased breath sounds at bases, L>R Abdomen:soft, distended, NT throughout, positive bowel sounds Extremities unchanged pitting 2+ pedal edema Psych: co-operative Laboratory Results - last 24 hr 10/31/18 11/01/18 11/01/18 17:14 05:46 06:30 WBC 3.4 L RBC 2.75 L Hgb 7.8 L Hct 24.0 L MCV 87.3 MCH 28.4 MCHC 32.5 RDW 14.7 Plt Count 249 MPV 7.3 L Absolute Neuts (auto) 2.7 Neutrophils % 77.8 D Lymphocytes % 9.2 D Monocytes % 12.0 H Eosinophils % 0.1 D Basophils % 0.9 Nucleated RBC % 0 Sodium Potassium Chloride Carbon Dioxide Anion Gap BUN Creatinine Creat Clearance w eGFR POC Glucometer 127 126 Random Glucose Calcium Phosphorus Magnesium Total Bilirubin AST ALT Alkaline Phosphatase Total Protein Albumin 11/01/18 06:30 WBC RBC Hgb Hct MCV MCH MCHC RDW Plt Count MPV Absolute Neuts (auto) Neutrophils % Lymphocytes % Monocytes % Eosinophils % Basophils % Nucleated RBC % Sodium 138 Potassium 4.4 Chloride 106 Carbon Dioxide 23 Anion Gap 9 BUN 73 H Creatinine 4.3 H Creat Clearance w eGFR 14.31 POC Glucometer Random Glucose 134 H Calcium 7.8 L Phosphorus 5.0 H Magnesium 2.0 Total Bilirubin 0.5 AST 26 ALT 35 Alkaline Phosphatase 127 H Total Protein 6.2 L Albumin 2.4 L Active Medications Generic Name Dose Route Start Last Admin Trade Name Freq PRN Reason Stop Dose Admin Acetaminophen 650 mg 10/28/18 16:55 10/31/18 20:20 Tylenol - PO 650 mg Q6H PRN Administration PAIN LEVEL 1-5 Aspirin 81 mg 10/27/18 10:00 11/01/18 08:59 Ecotrin - PO 81 mg DAILY [facility] Administration Clopidogrel Bisulfate 75 mg 10/27/18 10:00 11/01/18 08:59 Plavix - PO 75 mg DAILY [facility] Administration Ergocalciferol 50,000 unit 10/26/18 12:00 10/26/18 16:12 Drisdol - PO 50,000 unit Mo [facility] Administration Guaifenesin 5 ml 10/29/18 20:47 11/01/18 08:59 Diabetic Tussin Dm - PO 5 ml Q6H PRN Administration COUGH Heparin Sodium (Porcine) 5,000 unit 10/28/18 22:00 11/01/18 06:20 Heparin - SQ 5,000 unit TID [facility] Administration Hydralazine HCl 50 mg 10/26/18 14:00 11/01/18 06:20 Apresoline - PO 50 mg TID [facility] Administration Furosemide 100 mg/ Dextrose 60 mls @ 6 mls/hr 10/30/18 12:05 10/31/18 14:58 IVPB 10 mg/hr TITR [facility] 6 mls/hr Administration Protocol 10 MG/HR Insulin Aspart 1 vial 10/26/18 16:30 11/01/18 06:19 Novolog Vial Sliding Scale - SQ Not Given TIDAC [facility] Protocol Isosorbide Mononitrate 30 mg 10/27/18 10:00 11/01/18 08:59 Imdur - PO 30 mg DAILY [facility] Administration Labetalol HCl 300 mg 10/26/18 22:00 11/01/18 08:58 Normodyne - PO 300 mg BID [facility] Administration Nifedipine 90 mg 10/27/18 10:00 11/01/18 08:59 Procardia Xl - PO 90 mg DAILY [facility] Administration Ranolazine 500 mg 10/26/18 22:00 11/01/18 08:59 Ranexa - PO 500 mg BID [facility] Administration Tamsulosin HCl 0.4 mg 10/27/18 08:30 11/01/18 08:59 Flomax - PO 0.4 mg 0830 [facility] Administration ASSESSMENT/PLAN: 58 yom with PMX of CAD s/p Stage FER PCI 09/2017/10/2017, HTN, HLD, NIDDM, CKD stage III, (recent renal dysfunction, was planned for possible PCI), PAD s/p SFA PCI 2016 admitted with CHF -Acute systolic heart failure exacerbation -CAD s/p staged PCI 09/2017 and 10/2017 -Cardiomyopathy, suspect ischemia EF 40-45% -Left pleural effusion, suspect transudative based on current presentation -HTN -HLD -NIDDM -CKD stage III -PAD s/p SFA PCI 2016 Plan: Cr rising, Weight increased. Looks volume overloaded and short of breath with minimal activity. On lasix drip. Cardiology/renal input noted. Follow up for possible RHC/HD. Monitor left pleural effusion, clinically suspicious for transudative. Close volume status monitoring. Counseled patient on need for strict I/Os, discussed with nursing. LUE duplex neg for DVT Continue ASA/plavix/labetalol/hydralazine/nifedipine/ranexa/Imdur. ISS, diabetic diet Flomax DVTPPX heparin PT eval, encourage OOB Dispo pending clinical improvement. Plan discussed with patient and nursing, all questions answered. Visit type - Emergency Visit Emergency Visit: Yes ED Registration Date: 10/26/18 Care time: The patient presented to the Emergency Department on the above date and was hospitalized for further evaluation of their emergent condition. - New Patient This patient is new to me today: No - Critical Care Critical Care patient: No - Discharge Referral Referred to [facility] Med P.C.: No
[2018-11-02] MEDS: ACETAMINOPHEN 325 MG TABLET (FP) PO PRN ×3 (02:04→21:35)
[2018-11-02] MEDS: HEPARIN NA (PORCINE) 5,000 UNITS/ML 1ML VIAL SQ SCH ×3 (06:39→21:36)
[2018-11-02] MEDS: INSULIN SLIDING SCALE (NOVOLOG) 1 VIAL SQ SCH ×3 (06:39→16:52)
[2018-11-02] MEDS: hydrALAZINE HCL 50 MG TABLET (FP) PO SCH ×3 (06:39→21:33)
[2018-11-02 07:19] LABS: ALBUMIN 2.3 g/dl (3.4-5.0); ALK PHOS 120 U/L (45-117); ANION GAP 7 MMOL/L (8-16); BILIRUBIN,TOTAL 0.8 mg/dL (0.2-1); BLOOD UREA NITROGEN 75 mg/dL (7-18); CALCIUM 7.9 mg/dL (8.5-10.1); CHLORIDE 106 mmol/L (98-107); CO2 25 mmol/L (21-32); CREATININE 4.4 mg/dL (0.55-1.3); GLUCOSE,RANDOM 104 mg/dL (74-106); POTASSIUM 4.3 mmol/L (3.5-5.1); SGOT/AST 23 U/L (15-37); SGPT/ALT 38 U/L (13-61); SODIUM 139 mmol/L (136-145); TOT PROT 6.1 g/dl (6.4-8.2)
[2018-11-02 07:54] LABS: BASO % 0.7 % (0-2.0); EOS % 0.4 % (0-4.5); HEMATOCRIT 23.3 % (35.4-49); HEMOGLOBIN 7.7 GM/dL (11.7-16.9); LYMPH % 14.2 % (8-40); MCH 28.5 pg (25.7-33.7); MCHC 32.9 g/dl (32.0-35.9); MEAN CELL VOLUME 86.6 fl (80-96); MEAN PLT VOLUME 7.7 fl (7.5-11.1); MONO % 12.9 % (3.8-10.2); NEUT % 71.8 % (42.8-82.8); PLATELET COUNT 250 K/MM3 (134-434); RBC 2.69 M/mm3 (4.00-5.60); RDW 14.9 % (11.9-15.9); WHITE BLOOD COUNT 4.3 K/mm3 (4.0-10.0)
--- NOTE | 2018-11-02 09:25 | PN ---
Progress Note, Physician Chief Complaint: TELE: NSR Denies CP or SOB above baseline - Current Medication List Current Medications: Active Medications Acetaminophen (Tylenol -) 650 mg PO Q6H PRN PRN Reason: PAIN LEVEL 1-5 Last Admin: 11/02/18 02:04 Dose: 650 mg Aspirin (Ecotrin -) 81 mg PO DAILY [facility] Last Admin: 11/01/18 08:59 Dose: 81 mg Clopidogrel Bisulfate (Plavix -) 75 mg PO DAILY [facility] Last Admin: 11/01/18 08:59 Dose: 75 mg Ergocalciferol (Drisdol -) 50,000 unit PO Mo [facility] Last Admin: 10/26/18 16:12 Dose: 50,000 unit Guaifenesin (Diabetic Tussin Dm -) 5 ml PO Q6H PRN PRN Reason: COUGH Last Admin: 11/01/18 08:59 Dose: 5 ml Heparin Sodium (Porcine) (Heparin -) 5,000 unit SQ TID [facility] Last Admin: 11/02/18 06:39 Dose: 5,000 unit Hydralazine HCl (Apresoline -) 50 mg PO TID [facility] Last Admin: 11/02/18 06:39 Dose: 50 mg Furosemide 100 mg/ Dextrose 60 mls @ 6 mls/hr IVPB TITR [facility]; Protocol Last Admin: 10/31/18 14:58 Dose: 10 mg/hr, 6 mls/hr Insulin Aspart (Novolog Vial Sliding Scale -) 1 vial SQ TIDAC [facility]; Protocol Last Admin: 11/02/18 06:39 Dose: Not Given Isosorbide Mononitrate (Imdur -) 30 mg PO DAILY [facility] Last Admin: 11/01/18 08:59 Dose: 30 mg Labetalol HCl (Normodyne -) 300 mg PO BID [facility] Last Admin: 11/01/18 21:27 Dose: 300 mg Nifedipine (Procardia Xl -) 90 mg PO DAILY [facility] Last Admin: 11/01/18 08:59 Dose: 90 mg Ranolazine (Ranexa -) 500 mg PO BID [facility] Last Admin: 11/01/18 21:27 Dose: 500 mg Tamsulosin HCl (Flomax -) 0.4 mg PO 0830 [facility] Last Admin: 11/01/18 08:59 Dose: 0.4 mg - Objective Vital Signs: Vital Signs Temperature 99.1 F 11/02/18 05:00 Pulse Rate 91 H 11/02/18 05:00 Respiratory Rate 20 11/02/18 05:00 Blood Pressure 140/86 11/02/18 05:00 O2 Sat by Pulse Oximetry (%) 97 11/01/18 20:18 Cardiovascular: Yes: Regular Rate and Rhythm Respiratory: Yes: CTA Bilaterally Gastrointestinal: Yes: Soft, Abdomen, Obese Edema: Yes Edema: LLE: 2+, RLE: 2+ Neurological: Yes: Alert, Oriented Labs: CBC, BMP 11/02/18 05:30 11/02/18 05:30 INR, PTT INR 1.27 (0.83-1.09) H 10/26/18 09:50 Laboratory Tests 11/01/18 11/01/18 11/02/18 06:30 06:30 05:30 WBC 3.4 L Hgb 7.8 L Plt Count 249 Sodium 138 139 Potassium 4.4 4.3 BUN 73 H 75 H Creatinine 4.3 H 4.4 H Magnesium 2.0 11/02/18 05:30 WBC 4.3 Hgb 7.7 L Plt Count 250 Sodium Potassium BUN Creatinine Magnesium - ....Imaging EKG: Image Reviewed Assessment/Plan Assessment/Plan 1. Acute systolic HF exacerbation: - EF 40-45% - cont labetolol, not on ACEI/ARB for CKD - continue hydralzine and imdur. BP is controlled. -Possible cardiorenal syndrome -After d/w Renal 10/31, decision made for trial Lasix gtts as he appeared volume overloaded. -Creat continues to rise as does BUN, weight stable. -May need to hold lasix and consider RHC to assess hemodynamics. -Hypoalbuminemia may also be contributing to edema. 2. CKD - was planned for outpatient kidney biopsy - Cr 2.4 on admission, rising. Plan as above. - renal following 3. CAD: - s/p FER most recently 09/2017, 10/2017 - on aspirin and plavix, continue 4. HTN: - stable, continue home meds 5. Pulm HTN: - mild on echo, likely due to diastolic dysfunction 6. Cerebral atherosclerosis: - LICA plaque noted 2016 - on aspirin, plavix, statin 7. PAD: - hx L SFA stent, [employer] of left 2017 - aspirin, statin, plavix 8. HLD: - cont statin 9. DM: - manage per primary
--- NOTE | 2018-11-02 10:13 | PN ---
Teaching Attending Note Name of Resident: Korina Whittington ATTENDING PHYSICIAN STATEMENT I saw and evaluated the patient. I reviewed the resident's note and discussed the case with the resident. I agree with the resident's findings and plan as documented with exceptions below. SUBJECTIVE: patient seen and examined. reports worsening cough. Still short of breath with minimal activity. OBJECTIVE: Vital Signs Period Temp Pulse Resp BP Sys/Lopez Pulse Ox Last 24 Hr 97.9 F-99.4 F 72-91 20-20 140-149/67-86 97 Intake & Output 10/30/18 10/31/18 11/01/18 11/02/18 23:59 23:59 23:59 23:59 Intake Total 350 780 120 Output Total 600 150 600 Balance -250 630 -480 Weight 288 lb 6.4 oz 289 lb 289 lb 3.2 oz General: lying in bed, overall unchanged exam Chest: decreased breath sounds at bases CVS;S1S2 regular Abdomen:soft, obese, NT Extremities: unchanged edema Home Medications Medication Instructions Recorded Glipizide [Glucotrol] 5 mg PO BID 04/08/17 Atorvastatin Ca [Lipitor] 40 mg PO HS 09/25/18 Ergocalciferol (Vitamin D2) 50,000 unit PO WEEKLY 09/25/18 [Vitamin D2] Tamsulosin HCl [Flomax] 0.4 mg PO DAILY 09/25/18 Furosemide [Lasix -] 80 mg PO DAILY 30 Days #60 tablet 10/07/18 Labetalol HCl [Normodyne -] 300 mg PO BID 30 Days #180 tablet 10/07/18 hydrALAZINE HCL [Apresoline -] 50 mg PO TID 30 Days #90 tablet 10/07/18 Aspirin [Aspirin EC] 81 mg PO DAILY 10/11/18 Clopidogrel Bisulfate [Plavix -] 75 mg PO DAILY 10/11/18 Isosorbide Mononitrate [Imdur -] 30 mg PO DAILY 10/11/18 Losartan Potassium 50 mg PO DAILY 10/11/18 Nifedipine ER [Procardia XL -] 90 mg PO DAILY 10/11/18 Ranolazine [Ranexa -] 500 mg PO BID 10/11/18 Active Medications Acetaminophen (Tylenol -) 650 mg PO Q6H PRN PRN Reason: PAIN LEVEL 1-5 Last Admin: 04/29/19 02:04 Dose: 650 mg Aspirin (Ecotrin -) 81 mg PO DAILY [facility] Last Admin: 11/01/18 08:59 Dose: 81 mg Clopidogrel Bisulfate (Plavix -) 75 mg PO DAILY [facility] Last Admin: 11/01/18 08:59 Dose: 75 mg Ergocalciferol (Drisdol -) 50,000 unit PO Mo [facility] Last Admin: 10/26/18 16:12 Dose: 50,000 unit Guaifenesin (Diabetic Tussin Dm -) 5 ml PO Q6H PRN PRN Reason: COUGH Last Admin: 11/01/18 08:59 Dose: 5 ml Heparin Sodium (Porcine) (Heparin -) 5,000 unit SQ TID [facility] Last Admin: 11/02/18 06:39 Dose: 5,000 unit Hydralazine HCl (Apresoline -) 50 mg PO TID [facility] Last Admin: 11/02/18 06:39 Dose: 50 mg Furosemide 100 mg/ Dextrose 60 mls @ 6 mls/hr IVPB TITR [facility]; Protocol Last Admin: 10/31/18 14:58 Dose: 10 mg/hr, 6 mls/hr Insulin Aspart (Novolog Vial Sliding Scale -) 1 vial SQ TIDAC [facility]; Protocol Last Admin: 11/02/18 06:39 Dose: Not Given Isosorbide Mononitrate (Imdur -) 30 mg PO DAILY [facility] Last Admin: 11/01/18 08:59 Dose: 30 mg Labetalol HCl (Normodyne -) 300 mg PO BID [facility] Last Admin: 11/01/18 21:27 Dose: 300 mg Nifedipine (Procardia Xl -) 90 mg PO DAILY [facility] Last Admin: 11/01/18 08:59 Dose: 90 mg Ranolazine (Ranexa -) 500 mg PO BID [facility] Last Admin: 11/01/18 21:27 Dose: 500 mg Tamsulosin HCl (Flomax -) 0.4 mg PO 0830 [facility] Last Admin: 11/01/18 08:59 Dose: 0.4 mg ASSESSMENT AND PLAN: 58 yom with PMX of CAD s/p Stage FER PCI 09/2017/10/2017, HTN, HLD, NIDDM, CKD stage III, (recent renal dysfunction, was planned for possible PCI), PAD s/p SFA PCI 2017 admitted with CHF -Acute systolic heart failure exacerbation -CAD s/p staged PCI 09/2017 and 10/2017 -Cardiomyopathy, suspect ischemia EF 40-45% -Left pleural effusion, suspect transudative based on current presentation -HTN -HLD -NIDDM -CKD stage III -PAD s/p SFA PCI 2016 Plan: Cr rising, Weight overall unchanged. Looks volume overloaded and short of breath with minimal activity. On lasix drip. Cardiology/renal input noted. Follow up for possible RHC/HD. Monitor left pleural effusion, clinically suspicious for transudative. Close volume status monitoring. Counseled patient on need for strict I/Os, discussed with nursing. LUE duplex neg for DVT Continue ASA/plavix/labetalol/hydralazine/nifedipine/ranexa/Imdur. ISS, diabetic diet Flomax DVTPPX heparin PT eval, encourage OOB Dispo pending clinical improvement. Plan discussed with patient and nursing, all questions answered.
[2018-11-02] MEDS: RANOLAZINE E.R. 500 MG TABLET (FP) PO SCH ×2 (10:23→21:33)
[2018-11-02] MEDS: ASPIRIN COATED 81 MG TABLET.EC PO SCH (10:23)
[2018-11-02] MEDS: NIFEdipine E.R. 90 MG TABLET (FP) PO SCH (10:23)
[2018-11-02] MEDS: CLOPIDOGREL BISULFATE 75 MG TABLET (FP) PO SCH (10:23)
[2018-11-02] MEDS: TAMSULOSIN HCL 0.4 MG CAP PO SCH (10:23)
[2018-11-02] MEDS: ISOSORBIDE MONONITRATE 30 MG TAB.SR.24H (FP) PO SCH (10:23)
[2018-11-02] MEDS: LABETALOL HCL 100 MG TABLET (FP) PO SCH ×2 (10:23→21:34)
[2018-11-02] MEDS ORDERED: PT OWN MED DRAWER 7, Y5N ONE (11:42)
[2018-11-02] MEDS: ERGOCALCIFEROL (VITAMIN D2) 50,000 UNIT CAPSULE (FP) PO SCH (11:58)
[2018-11-02] MEDS: WATER IVPB SCH (12:30)
[2018-11-02] MEDS: FUROSEMIDE IVPB SCH (12:30)
[2018-11-02] MEDS: DEXTROSE 5% IVPB SCH (12:30)
[2018-11-02] MEDS: METOLAZONE 5 MG TABLET PO SCH (14:15)
--- NOTE | 2018-11-02 15:43 | PN ---
Progress Note (short form) - Note Progress Note: Renal follow up for CKD Pt seen and examined at the bedside no acute complaints making urine but does not feel that he has a increaed output with IV lasix gtt denies any cough legs remain swollen weights unchanged no cp, fever, chills, N/V/D Vital Signs Temperature 98.5 F 11/02/18 14:00 Pulse Rate 69 11/02/18 14:00 Respiratory Rate 20 11/02/18 14:00 Blood Pressure 119/62 11/02/18 14:00 O2 Sat by Pulse Oximetry (%) 97 11/02/18 09:00 Intake & Output 10/30/18 10/31/18 11/01/18 11/02/18 23:59 23:59 23:59 23:59 Intake Total 350 780 120 Output Total 600 150 600 Balance -250 630 -480 Weight 130.816 kg 131.088 kg 131.179 kg NAD RRR, no M/R Dec BS soft obese, NT/ND + upper extremity edema ++ bilateral LE edema CBC, BMP 11/02/18 05:30 11/02/18 05:30 Current Medications Acetaminophen (Tylenol -) 650 mg PO Q6H PRN PRN Reason: PAIN LEVEL 1-5 Last Admin: 11/02/18 11:02 Dose: 650 mg Ergocalciferol (Drisdol -) 50,000 unit PO Mo [facility] Last Admin: 11/02/18 11:58 Dose: 50,000 unit Guaifenesin (Diabetic Tussin Dm -) 5 ml PO Q6H PRN PRN Reason: COUGH Last Admin: 11/01/18 08:59 Dose: 5 ml Heparin Sodium (Porcine) (Heparin -) 5,000 unit SQ TID [facility] Last Admin: 11/02/18 14:15 Dose: 5,000 unit Hydralazine HCl (Apresoline -) 50 mg PO TID [facility] Last Admin: 11/02/18 14:15 Dose: 50 mg Furosemide 100 mg/ Dextrose 60 mls @ 6 mls/hr IVPB TITR [facility]; Protocol Last Admin: 11/02/18 12:30 Dose: 10 mg/hr, 6 mls/hr Insulin Aspart (Novolog Vial Sliding Scale -) 1 vial SQ TIDAC [facility]; Protocol Last Admin: 11/02/18 11:58 Dose: Not Given Isosorbide Mononitrate (Imdur -) 30 mg PO DAILY [facility] Last Admin: 11/02/18 10:23 Dose: 30 mg Labetalol HCl (Normodyne -) 300 mg PO BID [facility] Last Admin: 11/02/18 10:23 Dose: 300 mg Metolazone (Zaroxolyn -) 5 mg PO DAILY [facility] Last Admin: 11/02/18 14:15 Dose: 5 mg Nifedipine (Procardia Xl -) 90 mg PO DAILY [facility] Last Admin: 11/02/18 10:23 Dose: 90 mg Ranolazine (Ranexa -) 500 mg PO BID [facility] Last Admin: 11/02/18 10:23 Dose: 500 mg Tamsulosin HCl (Flomax -) 0.4 mg PO 0830 [facility] Last Admin: 11/02/18 10:23 Dose: 0.4 mg 58 year old gentleman with hx of CKD with proteinuria, CHF, CAD s/p PCI, Hypertension, hyperlipidemia who preesnted from home with LE swelling and sob and admitted for CHF exacerbation with Cr of 2.4-2.6. #CHF exacerbation #GABI from cardio-renal syndrome #Proteinuria #CAD #HLD Discussed case with Cardiology. At this point pt has diuretic failure. Will need to titrate diuretics. Will add metolzone 5mg x 1 today and monitor response. May need to increase lasix gtt as well. No acute need for [employer]. Will plan on getting renal biopsy, will hold ASA and Plavix. Cardiology ok with holding antiplatelets for now. Trend renal function and electrolytes Thank you Mansoor Quiroz DO
--- NOTE | 2018-11-02 17:15 | PN ---
Physical Exam: SUBJECTIVE: Patient seen and examined, feeling the same, SOB didn't improve. OBJECTIVE: Vital Signs Period Temp Pulse Resp BP Sys/Lopez Pulse Ox Last 24 Hr 97.9 F-99.4 F 69-91 20-20 119-143/62-86 97-97 GENERAL: The patient is awake, alert, and fully oriented, in no acute distress. HEAD: Normal with no signs of trauma. EYES: Extraocular movements intact ENT: Oropharynx clear without exudates, moist mucous membranes. NECK: Trachea midline LUNGS: Breath sounds equal, diminished, crackles bilaterally, no accessory muscle use. HEART: Regular rate and rhythm, S1, S2 without murmur, rub or gallop. ABDOMEN: Obese, soft, nontender, nondistended, normoactive bowel sounds. EXTREMITIES: 2+ pulses, warm, 1+ edema. NEUROLOGICAL: Normal speech, gait not observed. PSYCH: Normal mood, normal affect. SKIN: Warm, dry, normal turgor, no rashes. Laboratory Results - last 24 hr 11/02/18 11/02/18 11/02/18 05:30 05:30 05:41 WBC 4.3 RBC 2.69 L Hgb 7.7 L Hct 23.3 L MCV 86.6 MCH 28.5 MCHC 32.9 RDW 14.9 Plt Count 250 MPV 7.7 Absolute Neuts (auto) 3.1 Neutrophils % 71.8 Lymphocytes % 14.2 D Monocytes % 12.9 H Eosinophils % 0.4 D Basophils % 0.7 Nucleated RBC % 0 Sodium 139 Potassium 4.3 Chloride 106 Carbon Dioxide 25 Anion Gap 7 L BUN 75 H Creatinine 4.4 H Creat Clearance w eGFR 13.93 POC Glucometer 98 Random Glucose 104 Calcium 7.9 L Phosphorus 5.0 H Magnesium 2.0 Total Bilirubin 0.8 AST 23 ALT 38 Alkaline Phosphatase 120 H Total Protein 6.1 L Albumin 2.3 L 11/02/18 11/02/18 11:57 16:51 WBC RBC Hgb Hct MCV MCH MCHC RDW Plt Count MPV Absolute Neuts (auto) Neutrophils % Lymphocytes % Monocytes % Eosinophils % Basophils % Nucleated RBC % Sodium Potassium Chloride Carbon Dioxide Anion Gap BUN Creatinine Creat Clearance w eGFR POC Glucometer 100 103 Random Glucose Calcium Phosphorus Magnesium Total Bilirubin AST ALT Alkaline Phosphatase Total Protein Albumin Active Medications Generic Name Dose Route Start Last Admin Trade Name Freq PRN Reason Stop Dose Admin Acetaminophen 650 mg 10/28/18 16:55 11/02/18 11:02 Tylenol - PO 650 mg Q6H PRN Administration PAIN LEVEL 1-5 Ergocalciferol 50,000 unit 10/26/18 12:00 11/02/18 11:58 Drisdol - PO 50,000 unit Mo [facility] Administration Guaifenesin 5 ml 10/29/18 20:47 11/01/18 08:59 Diabetic Tussin Dm - PO 5 ml Q6H PRN Administration COUGH Heparin Sodium (Porcine) 5,000 unit 10/28/18 22:00 11/02/18 14:15 Heparin - SQ 5,000 unit TID [facility] Administration Hydralazine HCl 50 mg 10/26/18 14:00 11/02/18 14:15 Apresoline - PO 50 mg TID [facility] Administration Furosemide 100 mg/ Dextrose 60 mls @ 6 mls/hr 10/30/18 12:05 11/02/18 12:30 IVPB 10 mg/hr TITR [facility] 6 mls/hr Administration Protocol 10 MG/HR Insulin Aspart 1 vial 10/26/18 16:30 11/02/18 16:52 Novolog Vial Sliding Scale - SQ Not Given TIDAC [facility] Protocol Isosorbide Mononitrate 30 mg 10/27/18 10:00 11/02/18 10:23 Imdur - PO 30 mg DAILY [facility] Administration Labetalol HCl 300 mg 10/26/18 22:00 11/02/18 10:23 Normodyne - PO 300 mg BID [facility] Administration Metolazone 5 mg 11/02/18 13:00 11/02/18 14:15 Zaroxolyn - PO 5 mg DAILY [facility] Administration Nifedipine 90 mg 10/27/18 10:00 11/02/18 10:23 Procardia Xl - PO 90 mg DAILY [facility] Administration Ranolazine 500 mg 10/26/18 22:00 11/02/18 10:23 Ranexa - PO 500 mg BID [facility] Administration Tamsulosin HCl 0.4 mg 10/27/18 08:30 11/02/18 10:23 Flomax - PO 0.4 mg 0830 [facility] Administration ASSESSMENT/PLAN: The pt is 58 yo m with PMX of CAD, HTN, HLD, NIDDM, CKD stage III, admitted with CHF exacerbation. Acute systolic heart failure exacerbation -continue Lasix drip -f/u cardiology recommendations -will continue strict I&O -daily weights -volume status stable, the patient is still complaining of SOB, no improvement -h/u of cardiomyopathy EF 40-45% CKD stage III -no significant diuresis with lasix drip -will start Metolazone 5 mg ONCE to see output -f/u ranal recommendations, no plans for HD yet -no ACEI/ARB for CKD CAD -continue home medications: Ranexa, Imdur Left pleural effusion likely transudative -monitor HTN -cont home meds: Hydralazine, Labetalol NIDDM -ISS ACHS -BGM ACHS BPH: -cont Flomax DVT PPX: Heparin DISPO; telemetry monitoring Problem List - Problems (1) CAD (coronary artery disease) Code(s): I25.10 - ATHSCL HEART DISEASE OF [place] CORONARY ARTERY W/O ANG PCTRS (2) CHF (congestive heart failure) Code(s): I50.9 - HEART FAILURE, UNSPECIFIED Qualifiers: Heart failure type: systolic Heart failure chronicity: acute on chronic Qualified Code(s): I50.23 - Acute on chronic systolic (congestive) heart failure (3) CKD (chronic kidney disease) stage 4, GFR 15-29 ml/min Code(s): N18.4 - CHRONIC KIDNEY DISEASE, STAGE 4 (SEVERE) (4) Pleural effusion, bilateral Code(s): J90 - PLEURAL EFFUSION, NOT ELSEWHERE CLASSIFIED (5) GABI (acute kidney injury) Code(s): N17.9 - ACUTE KIDNEY FAILURE, UNSPECIFIED (6) PAD (peripheral artery disease) Code(s): I73.9 - PERIPHERAL VASCULAR DISEASE, UNSPECIFIED (7) Shortness of breath Code(s): R06.02 - SHORTNESS OF BREATH Visit type - Emergency Visit Emergency Visit: Yes ED Registration Date: 10/26/18 Care time: The patient presented to the Emergency Department on the above date and was hospitalized for further evaluation of their emergent condition. - New Patient This patient is new to me today: No - Critical Care Critical Care patient: No - Discharge Referral Referred to [facility] Med P.C.: No
[2018-11-03] MEDS ORDERED: RANITIDINE HCL 150 MG TABLET (FP) PO ONE ×2 (01:38→22:00)
[2018-11-03] MEDS ORDERED: ALBUTEROL SO4 0.083% IH SOL 2.5 MG/3 ML VIAL.NEB. NEB ONE ×2 (01:38→01:46)
[2018-11-03] MEDS ORDERED: methylPREDNISolone NA SUCC 40 MG/1 ML VIAL IVPUSH ONE (02:00)
[2018-11-03] MEDS: ACETAMINOPHEN 325 MG TABLET (FP) PO PRN ×3 (02:45→21:59)
[2018-11-03] MEDS: HEPARIN NA (PORCINE) 5,000 UNITS/ML 1ML VIAL SQ SCH ×3 (06:51→21:57)
[2018-11-03] MEDS: INSULIN SLIDING SCALE (NOVOLOG) 1 VIAL SQ SCH ×3 (06:51→16:48)
[2018-11-03] MEDS: hydrALAZINE HCL 50 MG TABLET (FP) PO SCH ×3 (06:51→21:57)
[2018-11-03 07:16] LABS: BASO % 0.2 % (0-2.0); EOS % 0.1 % (0-4.5); HEMATOCRIT 23.9 % (35.4-49); HEMOGLOBIN 7.8 GM/dL (11.7-16.9); LYMPH % 1.8 % (8-40); MCH 28.3 pg (25.7-33.7); MCHC 32.7 g/dl (32.0-35.9); MEAN CELL VOLUME 86.7 fl (80-96); MEAN PLT VOLUME 7.6 fl (7.5-11.1); MONO % 4.1 % (3.8-10.2); NEUT % 93.8 % (42.8-82.8); PLATELET COUNT 246 K/MM3 (134-434); RBC 2.75 M/mm3 (4.00-5.60); RDW 14.8 % (11.9-15.9); WHITE BLOOD COUNT 9.9 K/mm3 (4.0-10.0)
[2018-11-03 07:46] LABS: ANION GAP 11 MMOL/L (8-16); BLOOD UREA NITROGEN 81 mg/dL (7-18); CHLORIDE 104 mmol/L (98-107); CO2 22 mmol/L (21-32); CREATININE 4.5 mg/dL (0.55-1.3); GLUCOSE,RANDOM 103 mg/dL (74-106); PHOSPHOROUS 4.4 mg/dL (2.5-4.9); POTASSIUM 4.2 mmol/L (3.5-5.1); SODIUM 136 mmol/L (136-145)
[2018-11-03] MEDS: NIFEdipine E.R. 90 MG TABLET (FP) PO SCH (09:36)
[2018-11-03] MEDS: LABETALOL HCL 100 MG TABLET (FP) PO SCH ×2 (09:36→21:58)
[2018-11-03] MEDS: TAMSULOSIN HCL 0.4 MG CAP PO SCH (09:36)
[2018-11-03] MEDS: RANOLAZINE E.R. 500 MG TABLET (FP) PO SCH ×2 (09:36→21:58)
[2018-11-03] MEDS: METOLAZONE 5 MG TABLET PO SCH (09:36)
[2018-11-03] MEDS: ISOSORBIDE MONONITRATE 30 MG TAB.SR.24H (FP) PO SCH (09:36)
[2018-11-03 09:37] LABS: ANISOCYTOSIS 0; MACROCYTOSIS 0; PLATELET ESTIMATE NORMAL
[2018-11-03] MEDS ORDERED: FUROSEMIDE INJECTION 100 MG in DEXTROSE 5%-WATER - 40 ML IVPB SCH (10:25)
--- NOTE | 2018-11-03 10:44 | PN ---
Progress Note (short form) - Note Progress Note: Chief Complaint: TELE: NSR episode of dyspnea overnight, now feels better. no chest pain, palps, dizziness Current Medications Acetaminophen (Tylenol -) 650 mg PO Q6H PRN PRN Reason: PAIN LEVEL 1-5 Last Admin: 11/03/18 02:45 Dose: 650 mg Ergocalciferol (Drisdol -) 50,000 unit PO Mo [facility] Last Admin: 11/02/18 11:58 Dose: 50,000 unit Guaifenesin (Diabetic Tussin Dm -) 5 ml PO Q6H PRN PRN Reason: COUGH Last Admin: 11/01/18 08:59 Dose: 5 ml Heparin Sodium (Porcine) (Heparin -) 5,000 unit SQ TID [facility] Last Admin: 11/03/18 06:51 Dose: 5,000 unit Hydralazine HCl (Apresoline -) 50 mg PO TID [facility] Last Admin: 11/03/18 06:51 Dose: 50 mg Furosemide 100 mg/ Dextrose 50 mls @ 5 mls/hr IVPB TITR [facility]; Protocol Insulin Aspart (Novolog Vial Sliding Scale -) 1 vial SQ TIDAC [facility]; Protocol Last Admin: 11/03/18 06:51 Dose: Not Given Isosorbide Mononitrate (Imdur -) 30 mg PO DAILY [facility] Last Admin: 11/03/18 09:36 Dose: 30 mg Labetalol HCl (Normodyne -) 300 mg PO BID [facility] Last Admin: 11/03/18 09:36 Dose: 300 mg Metolazone (Zaroxolyn -) 5 mg PO DAILY [facility] Last Admin: 11/03/18 09:36 Dose: 5 mg Nifedipine (Procardia Xl -) 90 mg PO DAILY [facility] Last Admin: 11/03/18 09:36 Dose: 90 mg Ranolazine (Ranexa -) 500 mg PO BID [facility] Last Admin: 11/03/18 09:36 Dose: 500 mg Tamsulosin HCl (Flomax -) 0.4 mg PO 30 [facility] Last Admin: 11/03/18 09:36 Dose: 0.4 mg - Objective Vital Signs: Vital Signs Period Temp Pulse Resp BP Sys/Lopez Pulse Ox Last 24 Hr 97.5 F-99.2 F 69-83 16-20 119-144/60-78 97 NAD Cardiovascular: Yes: Regular Rate and Rhythm Respiratory: Yes: CTA Bilaterally Gastrointestinal: Yes: Soft, Abdomen, Obese Edema: Yes Edema: LLE: 2+, RLE: 2+ Neurological: Yes: Alert, Oriented no jaundice not agitated - ....Imaging EKG: Image Reviewed Assessment/Plan Assessment/Plan 1. Acute systolic HF exacerbation: - EF 40-45% - cont labetolol, not on ACEI/ARB for CKD - continue hydralzine and imdur. BP is controlled. - Possible cardiorenal syndrome - Hypoalbuminemia may also be contributing to edema - d/w renal - noted urinary retention, will consider haider if patient agreeable - BUN/Cr rising, weight stable - continue lasix gtt, metolazone, monitor UOP, lytes, daily weights, Cr 2. CKD - Cr 2.4 on admission, rising - renal following - holding aspirin and plavix for kidney bx 3. CAD: - s/p FER most recently 09/2017, 10/2017 - on aspirin and plavix, holding for planned kidney bx 4. HTN: - stable, continue home meds 5. Pulm HTN: - mild on echo, likely due to diastolic dysfunction 6. Cerebral atherosclerosis: - LICA plaque noted 2017 - on aspirin, plavix, statin at home 7. PAD: - hx L SFA stent, [employer] of left 2017 - aspirin, statin, plavix at home 8. HLD: - cont statin 9. DM: - manage per primary
--- NOTE | 2018-11-03 10:45 | PN ---
Teaching Attending Note Name of Resident: Korina Whittington ATTENDING PHYSICIAN STATEMENT I saw and evaluated the patient. I reviewed the resident's note and discussed the case with the resident. I agree with the resident's findings and plan as documented with exceptions below. SUBJECTIVE: Patient seen and examined. episode of worsening dyspnea overnight, currently feels better. refuses haider cath and agrees to comply with strict I/Os and address haider if evidence of retention noted. OBJECTIVE: Vital Signs Period Temp Pulse Resp BP Sys/Lopez Pulse Ox Last 24 Hr 97.5 F-99.2 F 69-83 16-20 119-144/60-78 97 Intake & Output 10/31/18 11/01/18 11/02/18 11/03/18 23:59 23:59 23:59 23:59 Intake Total 780 120 480 550 Output Total 150 600 600 900 Balance 630 -480 -120 -350 Weight 289 lb 289 lb 3.2 oz 289 lb General: sitting in bed, mild tachypnea, able to speak in full sentences Chest: decreased breath sounds at bases, L>R Abdomen:Soft, obese, NT Extremities: unchanged pedal edema, anasarca CVS:S1S2 regular Home Medications Medication Instructions Recorded Glipizide [Glucotrol] 5 mg PO BID 04/08/17 Atorvastatin Ca [Lipitor] 40 mg PO HS 09/25/18 Ergocalciferol (Vitamin D2) 50,000 unit PO WEEKLY 09/25/18 [Vitamin D2] Tamsulosin HCl [Flomax] 0.4 mg PO DAILY 09/25/18 Furosemide [Lasix -] 80 mg PO DAILY 30 Days #60 tablet 10/07/18 Labetalol HCl [Normodyne -] 300 mg PO BID 30 Days #180 tablet 10/07/18 hydrALAZINE HCL [Apresoline -] 50 mg PO TID 30 Days #90 tablet 10/07/18 Aspirin [Aspirin EC] 81 mg PO DAILY 10/11/18 Clopidogrel Bisulfate [Plavix -] 75 mg PO DAILY 10/11/18 Isosorbide Mononitrate [Imdur -] 30 mg PO DAILY 10/11/18 Losartan Potassium 50 mg PO DAILY 10/11/18 Nifedipine ER [Procardia XL -] 90 mg PO DAILY 10/11/18 Ranolazine [Ranexa -] 500 mg PO BID 10/11/18 Active Medications Acetaminophen (Tylenol -) 650 mg PO Q6H PRN PRN Reason: PAIN LEVEL 1-5 Last Admin: 11/03/18 02:45 Dose: 650 mg Ergocalciferol (Drisdol -) 50,000 unit PO Mo [facility] Last Admin: 11/02/18 11:58 Dose: 50,000 unit Guaifenesin (Diabetic Tussin Dm -) 5 ml PO Q6H PRN PRN Reason: COUGH Last Admin: 11/01/18 08:59 Dose: 5 ml Heparin Sodium (Porcine) (Heparin -) 5,000 unit SQ TID [facility] Last Admin: 11/03/18 06:51 Dose: 5,000 unit Hydralazine HCl (Apresoline -) 50 mg PO TID [facility] Last Admin: 11/03/18 06:51 Dose: 50 mg Furosemide 100 mg/ Dextrose 50 mls @ 5 mls/hr IVPB TITR [facility]; Protocol Insulin Aspart (Novolog Vial Sliding Scale -) 1 vial SQ TIDAC [facility]; Protocol Last Admin: 11/03/18 06:51 Dose: Not Given Isosorbide Mononitrate (Imdur -) 30 mg PO DAILY [facility] Last Admin: 11/03/18 09:36 Dose: 30 mg Labetalol HCl (Normodyne -) 300 mg PO BID [facility] Last Admin: 11/03/18 09:36 Dose: 300 mg Metolazone (Zaroxolyn -) 5 mg PO DAILY [facility] Last Admin: 11/03/18 09:36 Dose: 5 mg Nifedipine (Procardia Xl -) 90 mg PO DAILY [facility] Last Admin: 11/03/18 09:36 Dose: 90 mg Ranolazine (Ranexa -) 500 mg PO BID [facility] Last Admin: 11/03/18 09:36 Dose: 500 mg Tamsulosin HCl (Flomax -) 0.4 mg PO 829 [facility] Last Admin: 11/03/18 09:36 Dose: 0.4 mg Laboratory Results - last 24 hr 11/02/18 11/02/18 11/03/18 11:57 16:51 05:30 WBC 9.9 RBC 2.75 L Hgb 7.8 L Hct 23.9 L MCV 86.7 MCH 28.3 MCHC 32.7 RDW 14.8 Plt Count 246 MPV 7.6 Absolute Neuts (auto) 9.3 H Neutrophils % 93.8 H D Lymphocytes % 1.8 L D Monocytes % 4.1 Eosinophils % 0.1 Basophils % 0.2 Nucleated RBC % 0 Sodium Potassium Chloride Carbon Dioxide Anion Gap BUN Creatinine Creat Clearance w eGFR POC Glucometer 100 103 Random Glucose Calcium Phosphorus Magnesium 11/03/18 11/03/18 05:30 06:50 WBC RBC Hgb Hct MCV MCH MCHC RDW Plt Count MPV Absolute Neuts (auto) Neutrophils % Lymphocytes % Monocytes % Eosinophils % Basophils % Nucleated RBC % Sodium 136 Potassium 4.2 Chloride 104 Carbon Dioxide 22 Anion Gap 11 BUN 81 H Creatinine 4.5 H Creat Clearance w eGFR 13.58 POC Glucometer 107 Random Glucose 103 Calcium 8.0 L Phosphorus 4.4 Magnesium 2.0 CXR images and results reviewed, Left pleural effusion, worsening perihilar markings ASSESSMENT AND PLAN: 58 yom with PMX of CAD s/p Stage FER PCI 09/2017/10/2017, HTN, HLD, NIDDM, CKD stage III, (recent renal dysfunction, was planned for possible PCI), PAD s/p SFA PCI 2016 admitted with CHF -Acute systolic heart failure exacerbation -CAD s/p staged PCI 09/2017 and 10/2017 -Cardiomyopathy, suspect ischemia EF 40-45% -Left pleural effusion, suspect transudative based on current presentation -HTN -HLD -NIDDM -CKD stage III -PAD s/p SFA PCI 2016 Plan: Cr rising, Failure to respond to diuresis. Overnight episode of dyspnea, CXR seems worse Discuss with nephrology/cardiology about possible renal biopsy/RHC/HD ASA/plavix on hold for now. Patient refuses haider, continue bladder scan q6h with straight cath prn for now. Monitor left pleural effusion, clinically suspicious for transudative. LUE duplex neg for DVT Continue ASA/plavix/labetalol/hydralazine/nifedipine/ranexa/Imdur. ISS, diabetic diet Flomax DVTPPX heparin PT eval, encourage OOB Dispo pending clinical improvement. Plan discussed with patient and nursing, all questions answered.
--- NOTE | 2018-11-03 11:27 | PN ---
Physical Exam: SUBJECTIVE: Patient seen and examined. He is still feeling SOB, no improvement, refused Delgado cath. Overnight more SOB, given steroids. OBJECTIVE: Vital Signs Period Temp Pulse Resp BP Sys/Lopez Pulse Ox Last 24 Hr 97.5 F-99.4 F 69-83 16-20 119-144/52-78 97 GENERAL: The patient is awake, alert, and fully oriented, in no acute distress, sitting in chair. HEAD: Normal with no signs of trauma. EYES: Extraocular movements intact ENT: Oropharynx clear without exudates, moist mucous membranes. NECK: Trachea midline LUNGS: Breath sounds equal, diminished, crackles bilaterally, no accessory muscle use. HEART: Regular rate and rhythm, S1, S2 without murmur, rub or gallop. ABDOMEN: Obese, soft, nontender, nondistended, normoactive bowel sounds. EXTREMITIES: 2+ pulses, warm, 3+ edema. NEUROLOGICAL: Normal speech, gait not observed. PSYCH: Normal mood, normal affect. SKIN: Warm, dry, normal turgor, no rashes. Laboratory Results - last 24 hr 11/02/18 11/02/18 11/03/18 11:57 16:51 05:30 WBC 9.9 RBC 2.75 L Hgb 7.8 L Hct 23.9 L MCV 86.7 MCH 28.3 MCHC 32.7 RDW 14.8 Plt Count 246 MPV 7.6 Absolute Neuts (auto) 9.3 H Neutrophils % 93.8 H D Neutrophils % (Manual) 82.2 D Band Neutrophils % 4.9 Lymphocytes % 1.8 L D Lymphocytes % (Manual) 4.0 L D Monocytes % 4.1 Monocytes % (Manual) 6 Eosinophils % 0.1 Eosinophils % (Manual) 0.0 Basophils % 0.2 Basophils % (Manual) 1.0 Myelocytes % (Man) 0 Promyelocytes % (Man) 0 Blast Cells % (Manual) 0 Nucleated RBC % 0 Metamyelocytes 0 Hypochromia 0 Platelet Estimate Normal Polychromasia 0 Poikilocytosis 0 Anisocytosis 0 Microcytosis 0 Macrocytosis 0 Sodium Potassium Chloride Carbon Dioxide Anion Gap BUN Creatinine Creat Clearance w eGFR POC Glucometer 100 103 Random Glucose Calcium Phosphorus Magnesium 11/03/18 11/03/18 05:30 06:50 WBC RBC Hgb Hct MCV MCH MCHC RDW Plt Count MPV Absolute Neuts (auto) Neutrophils % Neutrophils % (Manual) Band Neutrophils % Lymphocytes % Lymphocytes % (Manual) Monocytes % Monocytes % (Manual) Eosinophils % Eosinophils % (Manual) Basophils % Basophils % (Manual) Myelocytes % (Man) Promyelocytes % (Man) Blast Cells % (Manual) Nucleated RBC % Metamyelocytes Hypochromia Platelet Estimate Polychromasia Poikilocytosis Anisocytosis Microcytosis Macrocytosis Sodium 136 Potassium 4.2 Chloride 104 Carbon Dioxide 22 Anion Gap 11 BUN 81 H Creatinine 4.5 H Creat Clearance w eGFR 13.58 POC Glucometer 107 Random Glucose 103 Calcium 8.0 L Phosphorus 4.4 Magnesium 2.0 Active Medications Generic Name Dose Route Start Last Admin Trade Name Freq PRN Reason Stop Dose Admin Acetaminophen 650 mg 10/28/18 16:55 11/03/18 02:45 Tylenol - PO 650 mg Q6H PRN Administration PAIN LEVEL 1-5 Ergocalciferol 50,000 unit 10/26/18 12:00 11/02/18 11:58 Drisdol - PO 50,000 unit Mo [facility] Administration Guaifenesin 5 ml 10/29/18 20:47 11/01/18 08:59 Diabetic Tussin Dm - PO 5 ml Q6H PRN Administration COUGH Heparin Sodium (Porcine) 5,000 unit 10/28/18 22:00 11/03/18 06:51 Heparin - SQ 5,000 unit TID [facility] Administration Hydralazine HCl 50 mg 10/26/18 14:00 11/03/18 06:51 Apresoline - PO 50 mg TID [facility] Administration Furosemide 100 mg/ Dextrose 50 mls @ 5 mls/hr 11/03/18 10:25 IVPB TITR [facility] Protocol 10 MG/HR Insulin Aspart 1 vial 10/26/18 16:30 11/03/18 06:51 Novolog Vial Sliding Scale - SQ Not Given TIDAC [facility] Protocol Isosorbide Mononitrate 30 mg 10/27/18 10:00 11/03/18 09:36 Imdur - PO 30 mg DAILY [facility] Administration Labetalol HCl 300 mg 10/26/18 22:00 11/03/18 09:36 Normodyne - PO 300 mg BID [facility] Administration Metolazone 5 mg 11/02/18 13:00 11/03/18 09:36 Zaroxolyn - PO 5 mg DAILY [facility] Administration Nifedipine 90 mg 10/27/18 10:00 11/03/18 09:36 Procardia Xl - PO 90 mg DAILY [facility] Administration Ranolazine 500 mg 10/26/18 22:00 11/03/18 09:36 Ranexa - PO 500 mg BID [facility] Administration Tamsulosin HCl 0.4 mg 10/27/18 08:30 11/03/18 09:36 Flomax - PO 0.4 mg 0830 [facility] Administration ASSESSMENT/PLAN: The pt is 58 yo m with PMX of CAD, HTN, HLD, NIDDM, CKD stage III, admitted with CHF exacerbation. Acute systolic heart failure exacerbation -continue Lasix drip, encouraged the patient to collect urine if doesn't agree to Delgado -f/u cardiology recommendations -will continue strict I&O -daily weights -volume status stable, the patient is still complaining of SOB, no improvement, overnight more SOB, was given Solumedrol 40 mg IV ONCE and CXR, worsened today -h/u of cardiomyopathy EF 40-45% CKD stage III -no significant diuresis with lasix drip -Metolazone 5 mg ONCE given yesterday -f/u ranal recommendations, no plans for HD yet -no ACEI/ARB for CKD CAD -continue home medications: Ranexa, Imdur Left pleural effusion likely transudative -monitor HTN -cont home meds: Hydralazine, Labetalol NIDDM -ISS ACHS -BGM ACHS BPH: -cont Flomax DVT PPX: Heparin DISPO; telemetry monitoring Problem List - Problems (1) CAD (coronary artery disease) Code(s): I25.10 - ATHSCL HEART DISEASE OF [place] CORONARY ARTERY W/O ANG PCTRS (2) CHF (congestive heart failure) Code(s): I50.9 - HEART FAILURE, UNSPECIFIED Qualifiers: Heart failure type: systolic Heart failure chronicity: acute on chronic Qualified Code(s): I50.23 - Acute on chronic systolic (congestive) heart failure (3) CKD (chronic kidney disease) stage 4, GFR 15-29 ml/min Code(s): N18.4 - CHRONIC KIDNEY DISEASE, STAGE 4 (SEVERE) (4) Pleural effusion, bilateral Code(s): J90 - PLEURAL EFFUSION, NOT ELSEWHERE CLASSIFIED (5) GABI (acute kidney injury) Code(s): N17.9 - ACUTE KIDNEY FAILURE, UNSPECIFIED (6) PAD (peripheral artery disease) Code(s): I73.9 - PERIPHERAL VASCULAR DISEASE, UNSPECIFIED (7) Shortness of breath Code(s): R06.02 - SHORTNESS OF BREATH Visit type - Emergency Visit Emergency Visit: Yes ED Registration Date: 10/26/18 Care time: The patient presented to the Emergency Department on the above date and was hospitalized for further evaluation of their emergent condition. - New Patient This patient is new to me today: No - Critical Care Critical Care patient: No - Discharge Referral Referred to [facility] Med P.C.: No
[2018-11-03] MEDS ORDERED: PT OWN MED DRAWER 7, Y5N ONE (14:21)
--- NOTE | 2018-11-03 14:25 | PN ---
Progress Note (short form) - Note Progress Note: Renal follow up for CKD Pt seen and examined at the bedside said he became short of breath last night improved this am with steroids has urinary retention with bladder scan showing up to 900cc of urine in bladder yesterday he refused haider but was able to void when he walked to the bathroom no cp, fever, chills Vital Signs Temperature 99.4 F 11/03/18 10:00 Pulse Rate 78 11/03/18 10:00 Respiratory Rate 20 11/03/18 10:00 Blood Pressure 130/52 L 11/03/18 10:00 O2 Sat by Pulse Oximetry (%) 97 11/02/18 21:00 Intake & Output 10/31/18 11/01/18 11/02/18 11/03/18 23:59 23:59 23:59 23:59 Intake Total 780 120 480 550 Output Total 150 600 600 900 Balance 630 -480 -120 -350 Weight 131.088 kg 131.179 kg 131.088 kg NAD RRR, no M/R Dec BS at lung bases, no rales soft obese, NT/ND + upper extremity edema ++ bilateral LE edema CBC, BMP 11/03/18 05:30 11/03/18 05:30 Current Medications Acetaminophen (Tylenol -) 650 mg PO Q6H PRN PRN Reason: PAIN LEVEL 1-5 Last Admin: 11/03/18 12:07 Dose: 650 mg Ergocalciferol (Drisdol -) 50,000 unit PO Mo [facility] Last Admin: 11/02/18 11:58 Dose: 50,000 unit Guaifenesin (Diabetic Tussin Dm -) 5 ml PO Q6H PRN PRN Reason: COUGH Last Admin: 11/01/18 08:59 Dose: 5 ml Heparin Sodium (Porcine) (Heparin -) 5,000 unit SQ TID [facility] Last Admin: 11/03/18 06:51 Dose: 5,000 unit Hydralazine HCl (Apresoline -) 50 mg PO TID [facility] Last Admin: 11/03/18 06:51 Dose: 50 mg Furosemide 100 mg/ Dextrose 50 mls @ 5 mls/hr IVPB TITR [facility]; Protocol Last Admin: 11/03/18 11:31 Dose: 10 mg/hr, 5 mls/hr Insulin Aspart (Novolog Vial Sliding Scale -) 1 vial SQ TIDAC [facility]; Protocol Last Admin: 11/03/18 12:10 Dose: Not Given Isosorbide Mononitrate (Imdur -) 30 mg PO DAILY [facility] Last Admin: 11/03/18 09:36 Dose: 30 mg Labetalol HCl (Normodyne -) 300 mg PO BID [facility] Last Admin: 11/03/18 09:36 Dose: 300 mg Metolazone (Zaroxolyn -) 5 mg PO DAILY [facility] Last Admin: 11/03/18 09:36 Dose: 5 mg Nifedipine (Procardia Xl -) 90 mg PO DAILY [facility] Last Admin: 11/03/18 09:36 Dose: 90 mg Ranolazine (Ranexa -) 500 mg PO BID [facility] Last Admin: 11/03/18 09:36 Dose: 500 mg Tamsulosin HCl (Flomax -) 0.4 mg PO 30 [facility] Last Admin: 11/03/18 09:36 Dose: 0.4 mg 58 year old gentleman with hx of CKD with proteinuria, CHF, CAD s/p PCI, Hypertension, hyperlipidemia who preesnted from home with LE swelling and sob and admitted for CHF exacerbation with Cr of 2.4-2.6. #CHF exacerbation #GABI from cardio-renal syndrome #Proteinuria #CAD #HLD Renal function/weights unchanged will increase lasix gtt to 12.5mg per hour continue metolazone 5mg Daily (unclear how effective thiazide type diuretic will be in pt with eGFR < 30 discussed at length with patient the importance of urinary catheter placement as he has signs of urinary retention. He was advised that it could be contributing to his renal dysfunction and can cause worsening renal failure, however despite this he still refused catheter placement. will start proscar and increase flomax to 0.8mg Daily timed voids throughout the day plan for kidney biopsy next week. Thank you Mansoor Quiroz DO Thank you Mansoor Quiroz DO
[2018-11-03] MEDS: FINASTERIDE 5 MG TABLET (FP) PO SCH (14:33)
[2018-11-03] MEDS: FUROSEMIDE INJECTION 100 MG in DEXTROSE 5%-WATER - 40 ML IVPB SCH (18:04)
[2018-11-04] MEDS: hydrALAZINE HCL 50 MG TABLET (FP) PO SCH ×3 (06:52→22:18)
[2018-11-04] MEDS: ACETAMINOPHEN 325 MG TABLET (FP) PO PRN ×2 (06:52→22:18)
[2018-11-04] MEDS: HEPARIN NA (PORCINE) 5,000 UNITS/ML 1ML VIAL SQ SCH ×2 (06:52→13:48)
[2018-11-04] MEDS: INSULIN SLIDING SCALE (NOVOLOG) 1 VIAL SQ SCH ×3 (06:53→17:06)
[2018-11-04 07:59] LABS: BASO % 0.5 % (0-2.0); EOS % 0.2 % (0-4.5); HEMATOCRIT 23.8 % (35.4-49); HEMOGLOBIN 8.1 GM/dL (11.7-16.9); LYMPH % 5.6 % (8-40); MCH 29.3 pg (25.7-33.7); MCHC 33.9 g/dl (32.0-35.9); MEAN CELL VOLUME 86.5 fl (80-96); NEUT % 87.7 % (42.8-82.8); PLATELET COUNT 211 K/MM3 (134-434); RBC 2.75 M/mm3 (4.00-5.60); RDW 14.8 % (11.9-15.9)
[2018-11-04 08:03] LABS: ALBUMIN 2.3 g/dl (3.4-5.0); ALK PHOS 109 U/L (45-117); ANION GAP 10 MMOL/L (8-16); BILIRUBIN,TOTAL 0.6 mg/dL (0.2-1); BLOOD UREA NITROGEN 90 mg/dL (7-18); CALCIUM 8.2 mg/dL (8.5-10.1); CHLORIDE 103 mmol/L (98-107); CO2 22 mmol/L (21-32); CREATININE 4.8 mg/dL (0.55-1.3); GLUCOSE,RANDOM 126 mg/dL (74-106); MAGNESIUM 2.2 mg/dL (1.8-2.4); PHOSPHOROUS 4.8 mg/dL (2.5-4.9); POTASSIUM 4.5 mmol/L (3.5-5.1); SGOT/AST 43 U/L (15-37); SGPT/ALT 53 U/L (13-61); SODIUM 135 mmol/L (136-145); TOT PROT 6.1 g/dl (6.4-8.2)
[2018-11-04] MEDS: METOLAZONE 5 MG TABLET PO SCH (09:29)
[2018-11-04] MEDS: ISOSORBIDE MONONITRATE 30 MG TAB.SR.24H (FP) PO SCH (09:29)
[2018-11-04] MEDS: TAMSULOSIN HCL 0.4 MG CAP PO SCH (09:29)
[2018-11-04] MEDS: RANOLAZINE E.R. 500 MG TABLET (FP) PO SCH ×2 (09:29→22:18)
[2018-11-04] MEDS: LABETALOL HCL 100 MG TABLET (FP) PO SCH ×2 (09:29→22:18)
[2018-11-04] MEDS: FINASTERIDE 5 MG TABLET (FP) PO SCH (09:29)
[2018-11-04] MEDS: NIFEdipine E.R. 90 MG TABLET (FP) PO SCH (09:29)
--- NOTE | 2018-11-04 11:06 | PN ---
Progress Note (short form) - Note Progress Note: Chief Complaint: TELE: NSR no chest pain, palps, dizziness, dyspnea Current Medications Acetaminophen (Tylenol -) 650 mg PO Q6H PRN PRN Reason: PAIN LEVEL 1-5 Last Admin: 11/04/18 06:52 Dose: 650 mg Ergocalciferol (Drisdol -) 50,000 unit PO Mo [facility] Last Admin: 11/02/18 11:58 Dose: 50,000 unit Finasteride (Proscar -) 5 mg PO DAILY [facility] Last Admin: 11/04/18 09:29 Dose: 5 mg Guaifenesin (Diabetic Tussin Dm -) 5 ml PO Q6H PRN PRN Reason: COUGH Last Admin: 11/01/18 08:59 Dose: 5 ml Heparin Sodium (Porcine) (Heparin -) 5,000 unit SQ TID [facility] Last Admin: 11/04/18 06:52 Dose: 5,000 unit Hydralazine HCl (Apresoline -) 50 mg PO TID [facility] Last Admin: 11/04/18 06:52 Dose: 50 mg Furosemide 100 mg/ Dextrose 50 mls @ 6.25 mls/hr IVPB TITR [facility]; Protocol Last Admin: 11/03/18 18:04 Dose: 12.5 mg/hr, 6.25 mls/hr Insulin Aspart (Novolog Vial Sliding Scale -) 1 vial SQ TIDAC [facility]; Protocol Last Admin: 11/04/18 06:53 Dose: Not Given Isosorbide Mononitrate (Imdur -) 30 mg PO DAILY [facility] Last Admin: 11/04/18 09:29 Dose: 30 mg Labetalol HCl (Normodyne -) 300 mg PO BID [facility] Last Admin: 11/04/18 09:29 Dose: 300 mg Metolazone (Zaroxolyn -) 5 mg PO DAILY [facility] Last Admin: 11/04/18 09:29 Dose: 5 mg Nifedipine (Procardia Xl -) 90 mg PO DAILY [facility] Last Admin: 11/04/18 09:29 Dose: 90 mg Ranolazine (Ranexa -) 500 mg PO BID [facility] Last Admin: 11/04/18 09:29 Dose: 500 mg Tamsulosin HCl (Flomax -) 0.8 mg PO DAILY@0830 [facility] Last Admin: 11/04/18 09:29 Dose: 0.8 mg - Objective Vital Signs: Vital Signs Period Temp Pulse Resp BP Sys/Lopez Pulse Ox Last 24 Hr 98 F-98.7 F 70-78 18-20 119-145/64-74 97 NAD Cardiovascular: Yes: Regular Rate and Rhythm Respiratory: Yes: CTA Bilaterally Gastrointestinal: Yes: Soft, Abdomen, Obese Edema: Yes Edema: LLE: 2+, RLE: 2+ Neurological: Yes: Alert, Oriented no jaundice not agitated - ....Imaging EKG: Image Reviewed Assessment/Plan Assessment/Plan 1. Acute systolic HF exacerbation: - EF 40-45% - cont labetolol, not on ACEI/ARB for CKD - continue hydralzine and imdur. BP is controlled. - Possible cardiorenal syndrome - Hypoalbuminemia may also be contributing to edema - d/w renal - noted urinary retention, patient refused haider. started on proscar and flomax. endorses increased UOP - BUN/Cr rising, weight up - lasix gtt increased to 12.5, on metolazone, monitor UOP, lytes, daily weights , Cr 2. CKD - Cr 2.4 on admission, rising - renal following - holding aspirin and plavix for kidney bx 3. CAD: - s/p FER most recently 09/2017, 10/2017 - on aspirin and plavix, holding for planned kidney bx 4. HTN: - stable, continue home meds 5. Pulm HTN: - mild on echo, likely due to diastolic dysfunction 6. Cerebral atherosclerosis: - LICA plaque noted 2017 - on aspirin, plavix, statin at home 7. PAD: - hx L SFA stent, [employer] of left 2017 - aspirin, statin, plavix at home 8. HLD: - cont statin 9. DM: - manage per primary
--- NOTE | 2018-11-04 13:05 | PN ---
Progress Note (short form) - Note Progress Note: Renal follow up for CKD Pt seen and examined at the bedside no acute complaints breathing still labored + fever this am no abd pain, N/V/D Vital Signs Temperature 100.4 F H 11/04/18 09:00 Pulse Rate 80 11/04/18 09:00 Respiratory Rate 24 H 11/04/18 09:00 Blood Pressure 138/70 11/04/18 09:00 O2 Sat by Pulse Oximetry (%) 97 11/03/18 21:00 Intake & Output 11/01/18 11/02/18 11/03/18 11/04/18 23:59 23:59 23:59 23:59 Intake Total 120 480 550 Output Total 818 007 8477 400 Balance -480 -120 -750 -400 Weight 131.179 kg 131.088 kg 131.542 kg NAD RRR, no M/R Dec BS at lung bases, no rales soft obese, NT/ND + upper extremity edema ++ bilateral LE edema CBC, BMP 11/04/18 06:29 11/04/18 06:29 Current Medications Acetaminophen (Tylenol -) 650 mg PO Q6H PRN PRN Reason: PAIN LEVEL 1-5 Last Admin: 11/04/18 06:52 Dose: 650 mg Ergocalciferol (Drisdol -) 50,000 unit PO Mo [facility] Last Admin: 11/02/18 11:58 Dose: 50,000 unit Finasteride (Proscar -) 5 mg PO DAILY [facility] Last Admin: 11/04/18 09:29 Dose: 5 mg Guaifenesin (Diabetic Tussin Dm -) 5 ml PO Q6H PRN PRN Reason: COUGH Last Admin: 11/01/18 08:59 Dose: 5 ml Heparin Sodium (Porcine) (Heparin -) 5,000 unit SQ TID [facility] Last Admin: 11/04/18 06:52 Dose: 5,000 unit Hydralazine HCl (Apresoline -) 50 mg PO TID [facility] Last Admin: 11/04/18 06:52 Dose: 50 mg Furosemide 100 mg/ Dextrose 50 mls @ 6.25 mls/hr IVPB TITR [facility]; Protocol Last Admin: 11/03/18 18:04 Dose: 12.5 mg/hr, 6.25 mls/hr Insulin Aspart (Novolog Vial Sliding Scale -) 1 vial SQ TIDAC [facility]; Protocol Last Admin: 11/04/18 12:46 Dose: Not Given Isosorbide Mononitrate (Imdur -) 30 mg PO DAILY [facility] Last Admin: 11/04/18 09:29 Dose: 30 mg Labetalol HCl (Normodyne -) 300 mg PO BID [facility] Last Admin: 11/04/18 09:29 Dose: 300 mg Metolazone (Zaroxolyn -) 5 mg PO DAILY [facility] Last Admin: 11/04/18 09:29 Dose: 5 mg Nifedipine (Procardia Xl -) 90 mg PO DAILY [facility] Last Admin: 11/04/18 09:29 Dose: 90 mg Ranolazine (Ranexa -) 500 mg PO BID [facility] Last Admin: 11/04/18 09:29 Dose: 500 mg Tamsulosin HCl (Flomax -) 0.8 mg PO DAILY@0830 [facility] Last Admin: 11/04/18 09:29 Dose: 0.8 mg 58 year old gentleman with hx of CKD with proteinuria, CHF, CAD s/p PCI, Hypertension, hyperlipidemia who preesnted from home with LE swelling and sob and admitted for CHF exacerbation with Cr of 2.4-2.6. #CHF exacerbation #GABI from cardio-renal syndrome #Proteinuria #CAD #HLD BUN/Cr uptrending slowly weights remain unchanged Check US of kidney and bladder if US shows no hydronephrosis can increase Lasix gtt to 15mg per hour continue metolazone timed voiding continue proscar and flomax cardiology following ? need for right heart cath off ASA and plavix for biopsy Thank you Mansoor Quiroz DO
--- NOTE | 2018-11-04 13:34 | PN ---
Teaching Attending Note Name of Resident: Korina Whittington ATTENDING PHYSICIAN STATEMENT I saw and evaluated the patient. I reviewed the resident's note and discussed the case with the resident. I agree with the resident's findings and plan as documented with exceptions below. SUBJECTIVE: Patient seen and examined. Overall unchanged, still dyspneic with minimal exertion, reports is voiding and continues to decline haider. OBJECTIVE: Vital Signs Period Temp Pulse Resp BP Sys/Lopez Pulse Ox Last 24 Hr 98 F-100.4 F 70-80 18-24 119-145/64-74 97 Intake & Output 11/01/18 11/02/18 11/03/18 11/04/18 23:59 23:59 23:59 23:59 Intake Total 120 480 550 Output Total 705 340 1276 400 Balance -480 -120 -750 -400 Weight 289 lb 3.2 oz 289 lb 290 lb General: sitting in bed, no acute distress Chest: poor effort, decreased breath sounds at bases, L>R Abdomen:Soft, obese, NT, no suprapubic or CVA tenderness Extremities: unchanged pedal edema Home Medications Medication Instructions Recorded Glipizide [Glucotrol] 5 mg PO BID 04/08/17 Atorvastatin Ca [Lipitor] 40 mg PO HS 09/25/18 Ergocalciferol (Vitamin D2) 50,000 unit PO WEEKLY 09/25/18 [Vitamin D2] Tamsulosin HCl [Flomax] 0.4 mg PO DAILY 09/25/18 Furosemide [Lasix -] 80 mg PO DAILY 30 Days #60 tablet 10/07/18 Labetalol HCl [Normodyne -] 300 mg PO BID 30 Days #180 tablet 10/07/18 hydrALAZINE HCL [Apresoline -] 50 mg PO TID 30 Days #90 tablet 10/07/18 Aspirin [Aspirin EC] 81 mg PO DAILY 10/11/18 Clopidogrel Bisulfate [Plavix -] 75 mg PO DAILY 10/11/18 Isosorbide Mononitrate [Imdur -] 30 mg PO DAILY 10/11/18 Losartan Potassium 50 mg PO DAILY 10/11/18 Nifedipine ER [Procardia XL -] 90 mg PO DAILY 10/11/18 Ranolazine [Ranexa -] 500 mg PO BID 10/11/18 Active Medications Acetaminophen (Tylenol -) 650 mg PO Q6H PRN PRN Reason: PAIN LEVEL 1-5 Last Admin: 11/04/18 06:52 Dose: 650 mg Ergocalciferol (Drisdol -) 50,000 unit PO Mo [facility] Last Admin: 11/02/18 11:58 Dose: 50,000 unit Finasteride (Proscar -) 5 mg PO DAILY [facility] Last Admin: 11/04/18 09:29 Dose: 5 mg Guaifenesin (Diabetic Tussin Dm -) 5 ml PO Q6H PRN PRN Reason: COUGH Last Admin: 11/01/18 08:59 Dose: 5 ml Heparin Sodium (Porcine) (Heparin -) 5,000 unit SQ TID [facility] Last Admin: 11/04/18 06:52 Dose: 5,000 unit Hydralazine HCl (Apresoline -) 50 mg PO TID [facility] Last Admin: 11/04/18 06:52 Dose: 50 mg Furosemide 100 mg/ Dextrose 50 mls @ 6.25 mls/hr IVPB TITR [facility]; Protocol Last Admin: 11/03/18 18:04 Dose: 12.5 mg/hr, 6.25 mls/hr Insulin Aspart (Novolog Vial Sliding Scale -) 1 vial SQ TIDAC [facility]; Protocol Last Admin: 11/04/18 12:46 Dose: Not Given Isosorbide Mononitrate (Imdur -) 30 mg PO DAILY [facility] Last Admin: 11/04/18 09:29 Dose: 30 mg Labetalol HCl (Normodyne -) 300 mg PO BID [facility] Last Admin: 11/04/18 09:29 Dose: 300 mg Metolazone (Zaroxolyn -) 5 mg PO DAILY [facility] Last Admin: 11/04/18 09:29 Dose: 5 mg Nifedipine (Procardia Xl -) 90 mg PO DAILY [facility] Last Admin: 11/04/18 09:29 Dose: 90 mg Ranolazine (Ranexa -) 500 mg PO BID [facility] Last Admin: 11/04/18 09:29 Dose: 500 mg Tamsulosin HCl (Flomax -) 0.8 mg PO DAILY@0830 [facility] Last Admin: 11/04/18 09:29 Dose: 0.8 mg Laboratory Results - last 24 hr 11/03/18 11/04/18 11/04/18 16:47 06:29 06:29 WBC 10.0 RBC 2.75 L Hgb 8.1 L Hct 23.8 L MCV 86.5 MCH 29.3 MCHC 33.9 RDW 14.8 Plt Count 211 MPV 8.0 Absolute Neuts (auto) 8.8 H Neutrophils % 87.7 H Lymphocytes % 5.6 L D Monocytes % 6.0 Eosinophils % 0.2 D Basophils % 0.5 Nucleated RBC % 0 Sodium 135 L Potassium 4.5 Chloride 103 Carbon Dioxide 22 Anion Gap 10 BUN 90 H Creatinine 4.8 H Creat Clearance w eGFR 12.60 POC Glucometer 147 Random Glucose 126 H Calcium 8.2 L Phosphorus 4.8 Magnesium 2.2 Total Bilirubin 0.6 AST 43 H ALT 53 Alkaline Phosphatase 109 Total Protein 6.1 L Albumin 2.3 L 11/04/18 11/04/18 06:52 11:44 WBC RBC Hgb Hct MCV MCH MCHC RDW Plt Count MPV Absolute Neuts (auto) Neutrophils % Lymphocytes % Monocytes % Eosinophils % Basophils % Nucleated RBC % Sodium Potassium Chloride Carbon Dioxide Anion Gap BUN Creatinine Creat Clearance w eGFR POC Glucometer 132 146 Random Glucose Calcium Phosphorus Magnesium Total Bilirubin AST ALT Alkaline Phosphatase Total Protein Albumin CXR results reviewed Telemetry: sinus, PVCs ASSESSMENT AND PLAN: 58 yom with PMX of CAD s/p Stage FER PCI 09/2017/10/2017, HTN, HLD, NIDDM, CKD stage III, (recent renal dysfunction, was planned for possible PCI), PAD s/p SFA PCI 2016 admitted with CHF -Acute systolic heart failure exacerbation -CAD s/p staged PCI 09/2017 and 10/2017 -Cardiomyopathy, suspect ischemia EF 40-45% -Left pleural effusion, suspect transudative based on current presentation -Low grade fever, suspect atelectasis -HTN -HLD -NIDDM -CKD stage III -PAD s/p SFA PCI 2016 Plan: Cr rising, weight unchanged. Nephrology/cardiology input noted. RHC/renal biopsy/HD per recs. Lasix drip increased. COncerns for intermittent retention, patient refuses haider, explained in detail about low kidney reserve and high risk of worsening renal function or need for HD in the setting of intermittent retention. Patient relays understanding, but refuses haider. Bladder scan/Straight cath prn. Flomax/finasteride added by renal. Follow up renal/bladder US. Low grade temp, suspect atelectasis, given poor effort and ambulation. Blood cx sent. Will encourage OOB and incentive spirometry. If recurrent fevers, CT chest to address for air space dz and left pleural effusion. ASA/plavix on hold for renal biopsy. LUE duplex neg for DVT Continue ASA/plavix/labetalol/hydralazine/nifedipine/ranexa/Imdur. ISS, diabetic diet DVTPPX heparin PT eval, encourage OOB Dispo pending clinical improvement. May need transfer to [facility] if fails to improve. Plan discussed with patient and nursing, all questions answered.
--- NOTE | 2018-11-04 14:47 | PN ---
Physical Exam: SUBJECTIVE: Patient seen and examined. He is feeling the same today, still complaining of leg swelling and SOB. OBJECTIVE: Vital Signs Period Temp Pulse Resp BP Sys/Loepz Pulse Ox Last 24 Hr 98 F-100.4 F 71-80 18-24 119-145/64-74 97 GENERAL: The patient is awake, alert, and fully oriented, in no acute distress, sitting in chair. HEAD: Normal with no signs of trauma. EYES: Extraocular movements intact ENT: Oropharynx clear without exudates, moist mucous membranes. NECK: Trachea midline LUNGS: Breath sounds equal, diminished, crackles bilaterally, no accessory muscle use. HEART: Regular rate and rhythm, S1, S2 without murmur, rub or gallop. ABDOMEN: Obese, soft, nontender, normoactive bowel sounds. EXTREMITIES: 2+ pulses, warm, 3+ edema. NEUROLOGICAL: Normal speech, gait not observed. PSYCH: Normal mood, normal affect. SKIN: Warm, dry, normal turgor, no rashes. Laboratory Results - last 24 hr 11/03/18 11/04/18 11/04/18 16:47 06:29 06:29 WBC 10.0 RBC 2.75 L Hgb 8.1 L Hct 23.8 L MCV 86.5 MCH 29.3 MCHC 33.9 RDW 14.8 Plt Count 211 MPV 8.0 Absolute Neuts (auto) 8.8 H Neutrophils % 87.7 H Lymphocytes % 5.6 L D Monocytes % 6.0 Eosinophils % 0.2 D Basophils % 0.5 Nucleated RBC % 0 Sodium 135 L Potassium 4.5 Chloride 103 Carbon Dioxide 22 Anion Gap 10 BUN 90 H Creatinine 4.8 H Creat Clearance w eGFR 12.60 POC Glucometer 147 Random Glucose 126 H Calcium 8.2 L Phosphorus 4.8 Magnesium 2.2 Total Bilirubin 0.6 AST 43 H ALT 53 Alkaline Phosphatase 109 Total Protein 6.1 L Albumin 2.3 L 11/04/18 11/04/18 06:52 11:44 WBC RBC Hgb Hct MCV MCH MCHC RDW Plt Count MPV Absolute Neuts (auto) Neutrophils % Lymphocytes % Monocytes % Eosinophils % Basophils % Nucleated RBC % Sodium Potassium Chloride Carbon Dioxide Anion Gap BUN Creatinine Creat Clearance w eGFR POC Glucometer 132 146 Random Glucose Calcium Phosphorus Magnesium Total Bilirubin AST ALT Alkaline Phosphatase Total Protein Albumin Active Medications Generic Name Dose Route Start Last Admin Trade Name Freq PRN Reason Stop Dose Admin Acetaminophen 650 mg 10/28/18 16:55 11/04/18 06:52 Tylenol - PO 650 mg Q6H PRN Administration PAIN LEVEL 1-5 Ergocalciferol 50,000 unit 10/26/18 12:00 11/02/18 11:58 Drisdol - PO 50,000 unit Mo SANGEETHA Administration Finasteride 5 mg 11/03/18 14:30 11/04/18 09:29 Proscar - PO 5 mg DAILY [facility] Administration Guaifenesin 5 ml 10/29/18 20:47 11/01/18 08:59 Diabetic Tussin Dm - PO 5 ml Q6H PRN Administration COUGH Heparin Sodium (Porcine) 5,000 unit 10/28/18 22:00 11/04/18 13:48 Heparin - SQ 5,000 unit TID SANGEETHA Administration Hydralazine HCl 50 mg 10/26/18 14:00 11/04/18 13:48 Apresoline - PO 50 mg TID S[facility] Administration Furosemide 100 mg/ Dextrose 50 mls @ 6.25 mls/hr 11/03/18 14:26 11/03/18 18: 04 IVPB 12.5 mg/hr TITR SANGEETHA 6.25 mls/hr Administration Protocol 12.5 MG/HR Insulin Aspart 1 vial 10/26/18 16:30 11/04/18 12:46 Novolog Vial Sliding Scale - SQ Not Given TIDAC [facility] Protocol Isosorbide Mononitrate 30 mg 10/27/18 10:00 11/04/18 09:29 Imdur - PO 30 mg DAILY S[facility] Administration Labetalol HCl 300 mg 10/26/18 22:00 11/04/18 09:29 Normodyne - PO 300 mg BID S[facility] Administration Metolazone 5 mg 11/02/18 13:00 11/04/18 09:29 Zaroxolyn - PO 5 mg DAILY [facility] Administration Nifedipine 90 mg 10/27/18 10:00 11/04/18 09:29 Procardia Xl - PO 90 mg DAILY S[facility] Administration Ranolazine 500 mg 10/26/18 22:00 11/04/18 09:29 Ranexa - PO 500 mg BID [facility] Administration Tamsulosin HCl 0.8 mg 11/04/18 08:30 11/04/18 09:29 Flomax - PO 0.8 mg DAILY@0830 [facility] Administration ASSESSMENT/PLAN: The patient is 58 yo m with PMX of CAD, HTN, HLD, NIDDM, CKD stage III, admitted with CHF exacerbation. Acute systolic heart failure exacerbation -continue Lasix dripat increased dose 12 mg/hr, possible increase to 15 today, encouraged the patient to collect urine -still doesn't want Delgado -f/u cardiology recommendations -will continue strict I&O -daily weights -h/o of cardiomyopathy EF 40-45% CKD stage III -no significant diuresis with lasix drip -Metolazone 5 mg daily -f/u ranal recommendations, no plans for HD yet -no ACEI/ARB for CKD fever: -the patient had fever this morning -unknown source for nor, possibly urine -blood cultures, urine cultures -cxr CAD -continue home medications: Ranexa, Imdur Left pleural effusion likely transudative -monitor HTN -cont home meds: Hydralazine, Labetalol NIDDM -ISS ACHS -BGM ACHS BPH: -cont Flomax DVT PPX: Heparin DISPO; telemetry monitoring Problem List - Problems (1) CAD (coronary artery disease) Code(s): I25.10 - ATHSCL HEART DISEASE OF [place] CORONARY ARTERY W/O ANG PCTRS (2) CHF (congestive heart failure) Code(s): I50.9 - HEART FAILURE, UNSPECIFIED Qualifiers: Heart failure type: systolic Heart failure chronicity: acute on chronic Qualified Code(s): I50.23 - Acute on chronic systolic (congestive) heart failure (3) CKD (chronic kidney disease) stage 4, GFR 15-29 ml/min Code(s): N18.4 - CHRONIC KIDNEY DISEASE, STAGE 4 (SEVERE) (4) Pleural effusion, bilateral Code(s): J90 - PLEURAL EFFUSION, NOT ELSEWHERE CLASSIFIED (5) GABI (acute kidney injury) Code(s): N17.9 - ACUTE KIDNEY FAILURE, UNSPECIFIED (6) PAD (peripheral artery disease) Code(s): I73.9 - PERIPHERAL VASCULAR DISEASE, UNSPECIFIED (7) Shortness of breath Code(s): R06.02 - SHORTNESS OF BREATH Visit type - Emergency Visit Emergency Visit: Yes ED Registration Date: 10/26/18 Care time: The patient presented to the Emergency Department on the above date and was hospitalized for further evaluation of their emergent condition. - New Patient This patient is new to me today: No - Critical Care Critical Care patient: No - Discharge Referral Referred to [facility] Med P.C.: No
[2018-11-04] MEDS: FUROSEMIDE INJECTION 100 MG in DEXTROSE 5%-WATER - 40 ML IVPB SCH (15:00)
[2018-11-05] MEDS: hydrALAZINE HCL 50 MG TABLET (FP) PO SCH ×3 (01:00→21:16)
[2018-11-05 04:57] LABS: URINE APPEARANCE CLOUDY; URINE BILIRUBIN NEGATIVE (NEGATIVE); URINE COLOR DK YELLOW; URINE GLUCOSE (UA) NEGATIVE (NEGATIVE); URINE KETONE NEGATIVE (NEGATIVE)
[2018-11-05 04:58] LABS: URINE LEUK ESTERASE N (NEGATIVE); URINE NITRITE NEGATIVE (NEGATIVE); URINE PROTEIN 2 (NEGATIVE); URINE RBC 9 /hpf (0-4); URINE UROBILINOGEN 0.2 mg/dL (0.2-1.0); URINE WBC 2 /hpf (0-5)
[2018-11-05 04:59] LABS: EPI CELLS 3 /HPF (0-5/HPF); URINE BACTERIA 0.3 /hpf (NEGATIVE); URINE CRYSTALS N /hpf
[2018-11-05 05:00] LABS: HYALINE CASTS 335 /lpf (0-8)
[2018-11-05] MEDS: INSULIN SLIDING SCALE (NOVOLOG) 1 VIAL SQ SCH ×3 (06:07→16:56)
[2018-11-05 07:50] LABS: BASO % 0.5 % (0-2.0); EOS % 0.1 % (0-4.5); HEMATOCRIT 22.2 % (35.4-49); HEMOGLOBIN 7.4 GM/dL (11.7-16.9); MCH 28.4 pg (25.7-33.7); MCHC 33.1 g/dl (32.0-35.9); MEAN CELL VOLUME 85.8 fl (80-96); MEAN PLT VOLUME 8.1 fl (7.5-11.1); MONO % 7.2 % (3.8-10.2); NEUT % 87.2 % (42.8-82.8); PLATELET COUNT 217 K/MM3 (134-434); RBC 2.59 M/mm3 (4.00-5.60); RDW 14.5 % (11.9-15.9); WHITE BLOOD COUNT 9.4 K/mm3 (4.0-10.0)
[2018-11-05 08:08] LABS: ALBUMIN 2.2 g/dl (3.4-5.0); ALK PHOS 106 U/L (45-117); ANION GAP 12 MMOL/L (8-16); BILIRUBIN,TOTAL 0.8 mg/dL (0.2-1); BLOOD UREA NITROGEN 100 mg/dL (7-18); CHLORIDE 101 mmol/L (98-107); CO2 21 mmol/L (21-32); CREATININE 5.6 mg/dL (0.55-1.3); GLUCOSE,RANDOM 126 mg/dL (74-106); POTASSIUM 4.7 mmol/L (3.5-5.1); SGOT/AST 33 U/L (15-37); SGPT/ALT 50 U/L (13-61); SODIUM 135 mmol/L (136-145)
[2018-11-05] MEDS: TAMSULOSIN HCL 0.4 MG CAP PO SCH (09:36)
[2018-11-05] MEDS: FINASTERIDE 5 MG TABLET (FP) PO SCH (09:37)
[2018-11-05] MEDS: LABETALOL HCL 100 MG TABLET (FP) PO SCH ×2 (09:37→21:16)
[2018-11-05] MEDS: METOLAZONE 5 MG TABLET PO SCH (09:37)
[2018-11-05] MEDS: ISOSORBIDE MONONITRATE 30 MG TAB.SR.24H (FP) PO SCH (09:37)
[2018-11-05] MEDS: NIFEdipine E.R. 90 MG TABLET (FP) PO SCH (09:37)
[2018-11-05] MEDS: RANOLAZINE E.R. 500 MG TABLET (FP) PO SCH ×2 (09:37→21:16)
--- NOTE | 2018-11-05 12:10 | PN ---
Progress Note (short form) - Note Progress Note: TELE: SR s: no chest pain, palps, dizziness, dyspnea Current Medications Generic Name Dose Route Start Last Admin Trade Name Freq PRN Reason Stop Dose Admin Acetaminophen 650 mg 10/28/18 16:55 11/04/18 22:18 Tylenol - PO 650 mg Q6H PRN Administration PAIN LEVEL 1-5 Ergocalciferol 50,000 unit 10/26/18 12:00 11/02/18 11:58 Drisdol - PO 50,000 unit Mo SANGEETHA Administration Finasteride 5 mg 11/03/18 14:30 11/05/18 09:37 Proscar - PO 5 mg DAILY S[facility] Administration Guaifenesin 5 ml 10/29/18 20:47 11/01/18 08:59 Diabetic Tussin Dm - PO 5 ml Q6H PRN Administration COUGH Hydralazine HCl 50 mg 10/26/18 14:00 11/05/18 01:00 Apresoline - PO 50 mg TID SANGEETHA Administration Furosemide 100 mg/ Dextrose 50 mls @ 6.25 mls/hr 11/03/18 14:26 11/04/18 15: 00 IVPB 12.5 mg/hr TITR SANGEETHA 6.25 mls/hr Administration Protocol 12.5 MG/HR Insulin Aspart 1 vial 10/26/18 16:30 11/05/18 06:07 Novolog Vial Sliding Scale - SQ Not Given TIDAC [facility] Protocol Isosorbide Mononitrate 30 mg 10/27/18 10:00 11/05/18 09:37 Imdur - PO 30 mg DAILY S[facility] Administration Labetalol HCl 300 mg 10/26/18 22:00 11/05/18 09:37 Normodyne - PO 300 mg BID SANGEETHA Administration Ranolazine 500 mg 10/26/18 22:00 11/05/18 09:37 Ranexa - PO 500 mg BID S[facility] Administration Tamsulosin HCl 0.8 mg 11/04/18 08:30 11/05/18 09:36 Flomax - PO 0.8 mg DAILY@0830 [facility] Administration - Objective Vital Signs: Vital Signs Period Temp Pulse Resp BP Sys/Lopez Pulse Ox Last 24 Hr 98.3 F-100.4 F 71-77 20-22 121-138/54-74 95 NAD Cardiovascular: Yes: Regular Rate and Rhythm Respiratory: Yes: CTA Bilaterally Gastrointestinal: Yes: Soft, Abdomen, Obese Edema: Yes Edema: LLE: 2+, RLE: 2+ Neurological: Yes: Alert, Oriented no jaundice diaphoresis not agitated - ....Imaging EKG: Image Reviewed CBC, BMP 11/05/18 06:38 11/05/18 06:38 Assessment/Plan 1. Acute systolic HF exacerbation: - EF 40-45% - cont labetolol, not on ACEI/ARB for CKD - continue hydralzine and imdur. BP is controlled. - Possible cardiorenal syndrome - Hypoalbuminemia may also be contributing to edema - d/w renal - noted urinary retention, patient refused haider. started on proscar and flomax. endorses increased UOP -5/2: despite high dose lasix and metolazone his BUN/Cr rising and weight up with vol overload still. May need HD for vol removal. 2. CKD - Cr 2.4 on admission, rising - renal following - holding aspirin and plavix for kidney bx 3. CAD: - s/p FER most recently 09/2017, 10/2017 - on aspirin and plavix, holding for planned kidney bx 4. HTN: - stable, continue home meds 5. Pulm HTN: - mild on echo, likely due to diastolic dysfunction 6. Cerebral atherosclerosis: - LICA plaque noted 2017 - on aspirin, plavix, statin at home 7. PAD: - hx L SFA stent, [employer] of left 2017 - aspirin, statin, plavix at home 8. HLD: - cont statin
--- NOTE | 2018-11-05 15:25 | PN ---
Physical Exam: SUBJECTIVE: Patient seen and examined. He is still complaining of SOB, no change , last night he agreed to have Delgado catheter placed. OBJECTIVE: Vital Signs Period Temp Pulse Resp BP Sys/Lopez Pulse Ox Last 24 Hr 98.3 F-100.4 F 71-77 20-22 121-138/54-74 95 GENERAL: The patient is awake, alert, in no acute distress, lying on the side. HEAD: Normal with no signs of trauma. EYES: Extraocular movements intact ENT: Moist mucous membranes. NECK: Trachea midline LUNGS: Breath sounds equal, diminished, crackles bilaterally, no accessory muscle use. HEART: Regular rate and rhythm, S1, S2 without murmur, rub or gallop. ABDOMEN: Obese, soft, nontender, normoactive bowel sounds. EXTREMITIES: 2+ pulses, warm, 3+ edema. NEUROLOGICAL: Normal speech, gait not observed. PSYCH: Normal mood, normal affect. SKIN: Warm, dry, normal turgor, no rashes. Laboratory Results - last 24 hr 11/04/18 11/05/18 11/05/18 17:00 04:10 05:46 WBC RBC Hgb Hct MCV MCH MCHC RDW Plt Count MPV Absolute Neuts (auto) Neutrophils % Lymphocytes % Monocytes % Eosinophils % Basophils % Nucleated RBC % Sodium Potassium Chloride Carbon Dioxide Anion Gap BUN Creatinine Creat Clearance w eGFR POC Glucometer 123 123 Random Glucose Calcium Total Bilirubin AST ALT Alkaline Phosphatase Total Protein Albumin Urine Color Dk yellow Urine Appearance Cloudy Urine pH 6.0 Ur Specific [place] 1.032 Urine Protein 2 Urine Glucose (UA) Negative Urine Ketones Negative Urine Blood 1 Urine Nitrite Negative Urine Bilirubin Negative Urine Urobilinogen 0.2 Ur Leukocyte Esterase N Urine WBC (Auto) 2 Urine RBC (Auto) 9 Urine Casts (Auto) 335 U Pathogenic Cast Auto 6 U Epithel Cells (Auto) 3 Urine Crystals (Auto) N Urine Bacteria (Auto) 0.3 11/05/18 11/05/18 11/05/18 06:38 06:38 11:31 WBC 9.4 RBC 2.59 L Hgb 7.4 L Hct 22.2 L MCV 85.8 MCH 28.4 MCHC 33.1 RDW 14.5 Plt Count 217 MPV 8.1 Absolute Neuts (auto) 8.2 H Neutrophils % 87.2 H Lymphocytes % 5.0 L Monocytes % 7.2 Eosinophils % 0.1 Basophils % 0.5 Nucleated RBC % 0 Sodium 135 L Potassium 4.7 Chloride 101 Carbon Dioxide 21 Anion Gap 12 BUN 100 H Creatinine 5.6 H Creat Clearance w eGFR 10.55 POC Glucometer 135 Random Glucose 126 H Calcium 8.0 L Total Bilirubin 0.8 AST 33 ALT 50 Alkaline Phosphatase 106 Total Protein 6.0 L Albumin 2.2 L Urine Color Urine Appearance Urine pH Ur Specific [place] Urine Protein Urine Glucose (UA) Urine Ketones Urine Blood Urine Nitrite Urine Bilirubin Urine Urobilinogen Ur Leukocyte Esterase Urine WBC (Auto) Urine RBC (Auto) Urine Casts (Auto) U Pathogenic Cast Auto U Epithel Cells (Auto) Urine Crystals (Auto) Urine Bacteria (Auto) Active Medications Generic Name Dose Route Start Last Admin Trade Name Freq PRN Reason Stop Dose Admin Acetaminophen 650 mg 10/28/18 16:55 11/04/18 22:18 Tylenol - PO 650 mg Q6H PRN Administration PAIN LEVEL 1-5 Ergocalciferol 50,000 unit 10/26/18 12:00 11/02/18 11:58 Drisdol - PO 50,000 unit Mo S[facility]ETHA Administration Finasteride 5 mg 11/03/18 14:30 11/05/18 09:37 Proscar - PO 5 mg DAILY [facility] Administration Guaifenesin 5 ml 10/29/18 20:47 11/01/18 08:59 Diabetic Tussin Dm - PO 5 ml Q6H PRN Administration COUGH Hydralazine HCl 50 mg 10/26/18 14:00 11/05/18 13:26 Apresoline - PO 50 mg TID S[facility] Administration Furosemide 100 mg/ Dextrose 50 mls @ 6.25 mls/hr 11/03/18 14:26 11/04/18 15: 00 IVPB 12.5 mg/hr TITR SANGEETHA 6.25 mls/hr Administration Protocol 12.5 MG/HR Insulin Aspart 1 vial 10/26/18 16:30 11/05/18 12:14 Novolog Vial Sliding Scale - SQ Not Given TIDAC [facility] Protocol Isosorbide Mononitrate 30 mg 10/27/18 10:00 11/05/18 09:37 Imdur - PO 30 mg DAILY S[facility] Administration Labetalol HCl 300 mg 10/26/18 22:00 11/05/18 09:37 Normodyne - PO 300 mg BID S[facility] Administration Ranolazine 500 mg 10/26/18 22:00 11/05/18 09:37 Ranexa - PO 500 mg BID S[facility]HA Administration Tamsulosin HCl 0.8 mg 11/04/18 08:30 11/05/18 09:36 Flomax - PO 0.8 mg DAILY@0830 [facility] Administration ASSESSMENT/PLAN: The patient is 58 yo m with PMX of CAD, HTN, HLD, NIDDM, CKD stage III, admitted with CHF exacerbation. Acute systolic heart failure exacerbation -continue Lasix drip at 12,5 mg/hr, CXR unchanged, symptoms unchanged, Oxygenating well on 2 L NC -agreed to Danny, will monitor strict I&O, today -350 reported -f/u cardiology recommendations -daily weights -h/o of cardiomyopathy EF 40-45% CKD stage III -no significant diuresis with lasix drip -Metolazone 5 mg daily -f/u ranal recommendations, no plans for HD yet -no ACEI/ARB for CKD -plan for biopsy on Friday11/10/18 fever: -the patient had low grade fever yesterday -unknown source for now -blood cultures prelim G neg bacilli -cxr done, unchanged, possible infiltrates -will consult ID CAD -continue home medications: Ranexa, Imdur, no Plavix and ASA for kidney biopsy Left pleural effusion -likely transudative -stable HTN -cont home meds: Hydralazine, Labetalol NIDDM -ISS ACHS -BGM ACHS BPH: -cont Flomax DVT PPX: Heparin sq DISPO; telemetry monitoring Problem List - Problems (1) CAD (coronary artery disease) Code(s): I25.10 - ATHSCL HEART DISEASE OF [place] CORONARY ARTERY W/O ANG PCTRS (2) CHF (congestive heart failure) Code(s): I50.9 - HEART FAILURE, UNSPECIFIED Qualifiers: Heart failure type: systolic Heart failure chronicity: acute on chronic Qualified Code(s): I50.23 - Acute on chronic systolic (congestive) heart failure (3) CKD (chronic kidney disease) stage 4, GFR 15-29 ml/min Code(s): N18.4 - CHRONIC KIDNEY DISEASE, STAGE 4 (SEVERE) (4) Pleural effusion, bilateral Code(s): J90 - PLEURAL EFFUSION, NOT ELSEWHERE CLASSIFIED (5) GABI (acute kidney injury) Code(s): N17.9 - ACUTE KIDNEY FAILURE, UNSPECIFIED (6) PAD (peripheral artery disease) Code(s): I73.9 - PERIPHERAL VASCULAR DISEASE, UNSPECIFIED (7) Shortness of breath Code(s): R06.02 - SHORTNESS OF BREATH Visit type - Emergency Visit Emergency Visit: Yes ED Registration Date: 10/26/18 Care time: The patient presented to the Emergency Department on the above date and was hospitalized for further evaluation of their emergent condition. - New Patient This patient is new to me today: No - Critical Care Critical Care patient: No - Discharge Referral Referred to [facility] Med [facility] No
--- NOTE | 2018-11-05 15:48 | PN ---
Progress Note (short form) - Note Progress Note: ID CONSULT DICTATED GRAM NEGATIVE BACTEREMIA/SEPSIS ? SOURCE ? PNEUMONIA RENAL FAILURE CHF AWAIT C/S EMPIRIC CEFEPIME
--- NOTE | 2018-11-05 16:24 | CONS ---
DATE OF CONSULTATION: 11/05/2018 INFECTIOUS DISEASE CONSULTATION The patient is a 58-year-old male who is evaluated for positive blood cultures. He was admitted to the hospital on October 26, 2018, with decompensated congestive heart failure. He had been treated with diuretics during his hospitalization. His hospital course was complicated by urinary retention and worsening renal function. Yesterday the patient developed fever 100.4, a Delgado catheter was inserted. Blood cultures are now positive for gram-negative rods in 1 anaerobic bottle. He is awake and alert. He has no focal complaint. He denied any recent dysuria or hematuria. No complaints of suprapubic or flank pain. He is noted to have cough. He denies any dyspnea or chest pain. No history of resistant pathogens. However, he has had positive wound cultures for mixed organisms in the past. No history of ESBL. PAST MEDICAL HISTORY: Positive for hypertension, hyperlipidemia, coronary artery disease, congestive heart failure, chronic kidney disease. LABORATORY DATA: White count 9.4, hematocrit 22.2, platelet count 217. BUN 100, creatinine 5.6. Urinalysis 2 white cells. CHEST X-RAY: Shows some increased markings at the bases bilaterally. PHYSICAL EXAMINATION: General: He is chronically ill-appearing, supine in bed. He is not acutely short of breath. Vital Signs: T-max 100.4, blood pressure 125/69, pulse 73 regular, respirations 22 per minute. Eyes: Sclerae anicteric. Heart: Sounds S1, S2. Lungs: Rales at the bases bilaterally. Abdomen: Obese. No tenderness. No right upper quadrant or suprapubic tenderness. Extremities: Positive for edema. Genitourinary: Delgado catheter is in place with concentrated urine. Skin: Appears intact with no evidence of phlebitis. IMPRESSION: 1. Gram-negative bacteremia/sepsis likely a genitourinary source, cannot rule out healthcare-acquired pneumonia. 2. Renal failure. 3. Congestive heart failure. PLAN: Await culture results. Will empirically treat with cefepime 2 g IV piggyback every 24 hours adjusted for renal failure. Further recommendations pending identification of isolate. Will follow. Thank you for the kind referral. ELODIA QUIGLEY M.D. [id number]
[2018-11-05] MEDS ORDERED: CEFEPIME 2 GM in DEXTROSE 5%-WATER - 50 ML IVPB SCH (16:45)
--- NOTE | 2018-11-05 16:58 | PN ---
Progress Note (short form) - Note Progress Note: Renal follow up for CKD Pt seen and examined at the bedside feels weak and fatigued had low grade fever blood cultures grew gram negative bacteria haider inserted last night Vital Signs Temperature 100.2 F H 11/05/18 14:15 Pulse Rate 74 11/05/18 14:15 Respiratory Rate 18 11/05/18 14:15 Blood Pressure 118/63 11/05/18 14:15 O2 Sat by Pulse Oximetry (%) 95 11/04/18 21:00 Intake & Output 11/02/18 11/03/18 11/04/18 11/05/18 23:59 23:59 23:59 23:59 Intake Total 480 550 Output Total 600 1300 400 350 Balance -120 -750 -400 -350 Weight 131.088 kg 131.542 kg NAD RRR, no M/R Dec BS at lung bases, no rales soft obese, NT/ND + upper extremity edema ++ bilateral LE edema CBC, BMP 11/05/18 06:38 11/05/18 06:38 Current Medications Acetaminophen (Tylenol -) 650 mg PO Q6H PRN PRN Reason: PAIN LEVEL 1-5 Last Admin: 11/04/18 22:18 Dose: 650 mg Ergocalciferol (Drisdol -) 50,000 unit PO Mo [facility] Last Admin: 11/02/18 11:58 Dose: 50,000 unit Finasteride (Proscar -) 5 mg PO DAILY [facility] Last Admin: 11/05/18 09:37 Dose: 5 mg Guaifenesin (Diabetic Tussin Dm -) 5 ml PO Q6H PRN PRN Reason: COUGH Last Admin: 11/01/18 08:59 Dose: 5 ml Hydralazine HCl (Apresoline -) 50 mg PO TID [facility] Last Admin: 11/05/18 13:26 Dose: 50 mg Furosemide 100 mg/ Dextrose 50 mls @ 7.5 mls/hr IVPB TITR [facility]; Protocol Cefepime HCl 2 gm/ Dextrose 100 mls @ 200 mls/hr IVPB DAILY [facility]; Protocol Insulin Aspart (Novolog Vial Sliding Scale -) 1 vial SQ TIDAC [facility]; Protocol Last Admin: 11/05/18 16:56 Dose: Not Given Isosorbide Mononitrate (Imdur -) 30 mg PO DAILY [facility] Last Admin: 11/05/18 09:37 Dose: 30 mg Labetalol HCl (Normodyne -) 300 mg PO BID [facility] Last Admin: 11/05/18 09:37 Dose: 300 mg Ranolazine (Ranexa -) 500 mg PO BID [facility] Last Admin: 11/05/18 09:37 Dose: 500 mg Tamsulosin HCl (Flomax -) 0.8 mg PO DAILY@0830 [facility] Last Admin: 11/05/18 09:36 Dose: 0.8 mg 58 year old gentleman with hx of CKD with proteinuria, CHF, CAD s/p PCI, Hypertension, hyperlipidemia who preesnted from home with LE swelling and sob and admitted for CHF exacerbation with Cr of 2.4-2.6. #CHF exacerbation #GABI from cardio-renal syndrome #Proteinuria #CAD #HLD Renal function gradually worsening no emergent indication for [employer] will increase Lasix to 15mg per hour d/c metolazone maintain Haider for now, continue flomax and proscar planned for tentative renal biopsy on Friday Abx as per ID for gram negative bacteremia Thank you Mansoor Quiroz DO
[2018-11-05] MEDS: CEFEPIME 2 GM in DEXTROSE 5%-WATER 100 ML IVPB SCH (17:20)
[2018-11-05] MEDS: FUROSEMIDE INJECTION 100 MG in DEXTROSE 5%-WATER - 40 ML IVPB SCH (17:20)
[2018-11-05] MEDS: ACETAMINOPHEN 325 MG TABLET (FP) PO PRN ×2 (17:21→22:30)
--- NOTE | 2018-11-05 18:58 | PN ---
Teaching Attending Note Name of Resident: Korina Whittington ATTENDING PHYSICIAN STATEMENT I saw and evaluated the patient. I reviewed the resident's note and discussed the case with the resident. I agree with the resident's findings and plan as documented. SUBJECTIVE: Mr Prater says he is feeling "ok" but is reticent today. Says his sob is improved but still with cough. Denies cp and n/v. Still with swollen legs. OBJECTIVE: Last Vital Signs Temp Pulse Resp BP Pulse Ox 37.2 C 72 20 122/64 96 11/05/18 18:01 11/05/18 18:01 11/05/18 18:01 11/05/18 18:01 11/05/18 09:00 Gen: nad Pulm: crackles bilaterally CV: rrr w/o m/r/g Abd: +bs, s/nt/nd Ext: 3+ BLE edema CBC, BMP 11/05/18 06:38 11/05/18 06:38 ASSESSMENT AND PLAN: Problem List - Problems (1) CHF (congestive heart failure) Assessment/Plan: -cardiology following -continue diuresis today -monitor Code(s): I50.9 - HEART FAILURE, UNSPECIFIED Qualifiers: Heart failure type: systolic Heart failure chronicity: acute on chronic Qualified Code(s): I50.23 - Acute on chronic systolic (congestive) heart failure (2) GABI (acute kidney injury) Assessment/Plan: -case d/w Dr Quiroz -will need kidney biopsy but cannot do until Friday secondary to DAPT -monitor Code(s): N17.9 - ACUTE KIDNEY FAILURE, UNSPECIFIED (3) CKD (chronic kidney disease) stage 4, GFR 15-29 ml/min Assessment/Plan: -worsening -nephrology following Code(s): N18.4 - CHRONIC KIDNEY DISEASE, STAGE 4 (SEVERE) (4) Sepsis Assessment/Plan: -1 blood culture positive -however growing gram negative which is highly unusual for contaminant -consult ID Code(s): A41.9 - SEPSIS, UNSPECIFIED ORGANISM (5) Insulin dependent diabetes mellitus Assessment/Plan: -continue diabetic diet and insulin Code(s): E11.9 - TYPE 2 DIABETES MELLITUS WITHOUT COMPLICATIONS; Z79.4 - MEMBER SERVICES COORDINATOR (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 OF INSULIN
[2018-11-05] MEDS ORDERED: RANITIDINE HCL 150 MG TABLET (FP) PO ONE (19:27)
[2018-11-05 20:11] LABS: EPI CELLS 12.6 /HPF (0-5/HPF); HYALINE CASTS 105 /lpf (0-8); URINE APPEARANCE TURBID; URINE BILIRUBIN 1+ (NEGATIVE); URINE COLOR DK YELLOW; URINE GLUCOSE (UA) NEGATIVE (NEGATIVE); URINE KETONE TRACE (NEGATIVE); URINE LEUK ESTERASE 2+ (NEGATIVE); URINE NITRITE NEGATIVE (NEGATIVE); URINE PROTEIN 4+ (NEGATIVE); URINE WBC 51 /hpf (0-5)
[2018-11-05 21:18] LABS: URINE BACTERIA 50 /hpf (NEGATIVE); URINE RBC 50 /hpf (0-4)
[2018-11-06] MEDS: INSULIN SLIDING SCALE (NOVOLOG) 1 VIAL SQ SCH ×3 (06:06→17:19)
[2018-11-06] MEDS: hydrALAZINE HCL 50 MG TABLET (FP) PO SCH ×3 (06:09→21:59)
[2018-11-06] MEDS: guaiFENesin/D-M SUGAR-FREE/ACLHOL-FREE 118 ML BOTTLE PO PRN (06:29)
[2018-11-06] MEDS ORDERED: PT OWN MED DRAWER 7, Y5N ONE ×3 (07:36→15:21)
[2018-11-06 07:38] LABS: BASO % 0.1 % (0-2.0); EOS % 0.1 % (0-4.5); HEMATOCRIT 21.6 % (35.4-49); HEMOGLOBIN 7.1 GM/dL (11.7-16.9); LYMPH % 6.8 % (8-40); MCH 28.2 pg (25.7-33.7); MCHC 32.6 g/dl (32.0-35.9); MEAN CELL VOLUME 86.6 fl (80-96); MEAN PLT VOLUME 8.4 fl (7.5-11.1); MONO % 8.3 % (3.8-10.2); NEUT % 84.7 % (42.8-82.8); PLATELET COUNT 249 K/MM3 (134-434); RDW 14.6 % (11.9-15.9); WHITE BLOOD COUNT 9.8 K/mm3 (4.0-10.0)
[2018-11-06 07:50] LABS: ALBUMIN 2.1 g/dl (3.4-5.0); ALK PHOS 101 U/L (45-117); ANION GAP 11 MMOL/L (8-16); BILIRUBIN,TOTAL 0.7 mg/dL (0.2-1); CHLORIDE 100 mmol/L (98-107); CO2 23 mmol/L (21-32); CREATININE 6.1 mg/dL (0.55-1.3); GLUCOSE,RANDOM 152 mg/dL (74-106); PHOSPHOROUS 5.9 mg/dL (2.5-4.9); POTASSIUM 4.9 mmol/L (3.5-5.1); SGOT/AST 19 U/L (15-37); SGPT/ALT 43 U/L (13-61); SODIUM 134 mmol/L (136-145); TOT PROT 5.8 g/dl (6.4-8.2)
[2018-11-06 07:52] LABS: BLOOD UREA NITROGEN 117 mg/dL (7-18)
--- NOTE | 2018-11-06 09:05 | PN ---
Progress Note, Physician Chief Complaint: no SOB, no CP Creatinine is rising. - Current Medication List Current Medications: Active Medications Acetaminophen (Tylenol -) 650 mg PO Q6H PRN PRN Reason: PAIN LEVEL 1-5 Last Admin: 11/05/18 22:30 Dose: 650 mg Ergocalciferol (Drisdol -) 50,000 unit PO Mo [facility] Last Admin: 11/02/18 11:58 Dose: 50,000 unit Finasteride (Proscar -) 5 mg PO DAILY [facility] Last Admin: 11/05/18 09:37 Dose: 5 mg Guaifenesin (Diabetic Tussin Dm -) 5 ml PO Q6H PRN PRN Reason: COUGH Last Admin: 11/06/18 06:29 Dose: 5 ml Hydralazine HCl (Apresoline -) 50 mg PO TID [facility] Last Admin: 11/06/18 06:09 Dose: 50 mg Furosemide 100 mg/ Dextrose 50 mls @ 7.5 mls/hr IVPB TITR [facility]; Protocol Last Admin: 11/05/18 17:20 Dose: 15 mg/hr, 7.5 mls/hr Cefepime HCl 2 gm/ Dextrose 100 mls @ 200 mls/hr IVPB DAILY [facility]; Protocol Last Admin: 11/05/18 17:20 Dose: 200 mls/hr Insulin Aspart (Novolog Vial Sliding Scale -) 1 vial SQ TIDAC [facility]; Protocol Last Admin: 11/06/18 06:06 Dose: 2 units Isosorbide Mononitrate (Imdur -) 30 mg PO DAILY [facility] Last Admin: 11/05/18 09:37 Dose: 30 mg Labetalol HCl (Normodyne -) 300 mg PO BID [facility] Last Admin: 11/05/18 21:16 Dose: 300 mg Ranolazine (Ranexa -) 500 mg PO BID [facility] Last Admin: 11/05/18 21:16 Dose: 500 mg Tamsulosin HCl (Flomax -) 0.8 mg PO DAILY@0830 [facility] Last Admin: 11/05/18 09:36 Dose: 0.8 mg - Objective Vital Signs: Vital Signs Temperature 98.3 F 11/06/18 06:00 Pulse Rate 68 11/06/18 06:00 Respiratory Rate 18 11/06/18 06:00 Blood Pressure 127/65 11/06/18 06:00 O2 Sat by Pulse Oximetry (%) 96 11/05/18 21:00 Constitutional: Yes: No Distress Cardiovascular: Yes: Regular Rate and Rhythm Respiratory: Yes: Other (decreased basilar breath sounds) Gastrointestinal: Yes: Soft Edema: Yes Edema: LLE: 2+, RLE: 2+ Neurological: Yes: Alert, Oriented ...Motor Strength: WNL Labs: CBC, BMP 11/06/18 05:30 11/06/18 05:30 INR, PTT INR 1.27 (0.83-1.09) H 10/26/18 09:50 Laboratory Tests 11/06/18 11/06/18 05:30 05:30 WBC 9.8 Hgb 7.1 L Plt Count 249 Sodium 134 L Potassium 4.9 BUN 117 H* Creatinine 6.1 H Calcium 8.0 L Phosphorus 5.9 H Magnesium 2.0 - ....Imaging EKG: Image Reviewed Assessment/Plan Assessment/Plan 1. Acute systolic HF exacerbation: - EF 40-45% - cont labetolol, not on ACEI/ARB for CKD - continue hydralzine and imdur. BP is controlled. - Possible cardiorenal syndrome - Hypoalbuminemia may also be contributing to edema - May need HD 2. CKD - Cr 2.4 on admission, rising - renal following - holding aspirin and plavix for kidney bx -May need HD 3. CAD: - s/p FER most recently 09/2017, 10/2017 - on aspirin and plavix, holding for planned kidney bx 4. HTN: - stable, continue home meds 5. Pulm HTN: - mild on echo, likely due to diastolic dysfunction 6. Cerebral atherosclerosis: - LICA plaque noted 2016 - on aspirin, plavix, statin at home 7. 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 HLD: - cont statin
[2018-11-06] MEDS: ISOSORBIDE MONONITRATE 30 MG TAB.SR.24H (FP) PO SCH (10:26)
[2018-11-06] MEDS: TAMSULOSIN HCL 0.4 MG CAP PO SCH (10:26)
[2018-11-06] MEDS: FINASTERIDE 5 MG TABLET (FP) PO SCH (10:26)
[2018-11-06] MEDS: CEFEPIME 2 GM in DEXTROSE 5%-WATER 100 ML IVPB SCH (10:26)
[2018-11-06] MEDS: RANOLAZINE E.R. 500 MG TABLET (FP) PO SCH ×2 (10:26→21:59)
[2018-11-06] MEDS: LABETALOL HCL 100 MG TABLET (FP) PO SCH ×2 (10:26→21:58)
--- NOTE | 2018-11-06 14:35 | PN ---
Progress Note (short form) - Note Progress Note: Renal follow up for CKD Pt seen and examined at the bedside no aucte complaints denies any sob, cp, abd pain haider in place no uremic symptoms (nausea, metallic taste in mouth, weakenss) no fevers Vital Signs Temperature 98.8 F 11/06/18 10:00 Pulse Rate 69 11/06/18 10:00 Respiratory Rate 20 11/06/18 10:00 Blood Pressure 121/57 L 11/06/18 10:00 O2 Sat by Pulse Oximetry (%) 95 11/06/18 09:00 Intake & Output 11/03/18 11/04/18 11/05/18 11/06/18 23:59 23:59 23:59 23:59 Intake Total 550 550 Output Total 1300 400 450 100 Balance -750 -400 -450 450 Weight 131.088 kg 131.542 kg NAD RRR, no M/R Dec BS at lung bases, no rales soft obese, NT/ND + upper extremity edema ++ bilateral LE edema CBC, BMP 11/06/18 05:30 11/06/18 05:30 Current Medications Acetaminophen (Tylenol -) 650 mg PO Q6H PRN PRN Reason: PAIN LEVEL 1-5 Last Admin: 11/05/18 22:30 Dose: 650 mg Ergocalciferol (Drisdol -) 50,000 unit PO Mo [facility] Last Admin: 11/02/18 11:58 Dose: 50,000 unit Finasteride (Proscar -) 5 mg PO DAILY [facility] Last Admin: 11/06/18 10:26 Dose: 5 mg Guaifenesin (Diabetic Tussin Dm -) 5 ml PO Q6H PRN PRN Reason: COUGH Last Admin: 11/06/18 06:29 Dose: 5 ml Hydralazine HCl (Apresoline -) 50 mg PO TID [facility] Last Admin: 11/06/18 06:09 Dose: 50 mg Furosemide 100 mg/ Dextrose 50 mls @ 7.5 mls/hr IVPB TITR [facility]; Protocol Last Admin: 11/05/18 17:20 Dose: 15 mg/hr, 7.5 mls/hr Cefepime HCl 2 gm/ Dextrose 100 mls @ 200 mls/hr IVPB DAILY [facility]; Protocol Last Admin: 11/06/18 10:26 Dose: 200 mls/hr Insulin Aspart (Novolog Vial Sliding Scale -) 1 vial SQ TIDAC [facility]; Protocol Last Admin: 11/06/18 11:34 Dose: 2 units Isosorbide Mononitrate (Imdur -) 30 mg PO DAILY [facility] Last Admin: 11/06/18 10:26 Dose: 30 mg Labetalol HCl (Normodyne -) 300 mg PO BID [facility] Last Admin: 11/06/18 10:26 Dose: 300 mg Ranolazine (Ranexa -) 500 mg PO BID [facility] Last Admin: 11/06/18 10:26 Dose: 500 mg Tamsulosin HCl (Flomax -) 0.8 mg PO DAILY@0830 [facility] Last Admin: 11/06/18 10:26 Dose: 0.8 mg 58 year old gentleman with hx of CKD with proteinuria, CHF, CAD s/p PCI, Hypertension, hyperlipidemia who preesnted from home with LE swelling and sob and admitted for CHF exacerbation with Cr of 2.4-2.6. 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
--- NOTE | 2018-11-06 15:47 | PN ---
Physical Exam: SUBJECTIVE: Patient seen and examined, feeling tired, no overnight events. OBJECTIVE: Vital Signs Period Temp Pulse Resp BP Sys/Lopez Pulse Ox Last 24 Hr 98.2 F-99.0 F 67-72 18-20 108-137/51-65 95-96 GENERAL: The patient is awake, alert, in no acute distress, lying on the side. HEAD: Normal with no signs of trauma. EYES: Extraocular movements intact ENT: Moist mucous membranes. NECK: Trachea midline LUNGS: Breath sounds equal, diminished, crackles bilaterally, no accessory muscle use. HEART: Regular rate and rhythm, S1, S2 without murmur, rub or gallop. ABDOMEN: Obese, soft, nontender, normoactive bowel sounds. EXTREMITIES: 2+ pulses, warm, 3+ edema. NEUROLOGICAL: Normal speech, gait not observed. PSYCH: Normal mood, normal affect. SKIN: Warm, dry, normal turgor, no rashes. Delgado with yellow urine. Laboratory Results - last 24 hr 11/05/18 11/05/18 11/05/18 16:51 19:15 19:15 WBC RBC Hgb Hct MCV MCH MCHC RDW Plt Count MPV Absolute Neuts (auto) Neutrophils % Lymphocytes % Monocytes % Eosinophils % Basophils % Nucleated RBC % Sodium Potassium Chloride Carbon Dioxide Anion Gap BUN Creatinine Creat Clearance w eGFR POC Glucometer 137 Random Glucose Calcium Phosphorus Magnesium Total Bilirubin AST ALT Alkaline Phosphatase Total Protein Albumin Urine Color Dk yellow Urine Appearance Turbid Urine pH 5.0 Ur Specific [place] 1.022 Urine Protein 4+ H Urine Glucose (UA) Negative Urine Ketones Trace H Urine Blood 2+ H Urine Nitrite Negative Urine Bilirubin 1+ H Urine Urobilinogen 1.0 Ur Leukocyte Esterase 2+ H Urine WBC (Auto) 51 Urine RBC (Auto) 50 Urine Casts (Auto) 105 U Pathogenic Cast Auto 20 U Epithel Cells (Auto) 12.6 U Sm Round Cell (Auto) No Result Required. Urine Crystals (Auto) No Result Required. Urine Bacteria (Auto) 50 Ur Random Creatinine Cancelled U Random Total Protein Cancelled Ur Random Urea Nitrogn Cancelled HIV 1&2 Antibody Screen HIV P24 Antigen 11/05/18 11/05/18 11/06/18 19:15 19:15 05:30 WBC RBC Hgb Hct MCV MCH MCHC RDW Plt Count MPV Absolute Neuts (auto) Neutrophils % Lymphocytes % Monocytes % Eosinophils % Basophils % Nucleated RBC % Sodium Potassium Chloride Carbon Dioxide Anion Gap BUN Creatinine Creat Clearance w eGFR POC Glucometer Random Glucose Calcium Phosphorus Magnesium Total Bilirubin AST ALT Alkaline Phosphatase Total Protein Albumin Urine Color Urine Appearance Urine pH Ur Specific [place] Urine Protein Urine Glucose (UA) Urine Ketones Urine Blood Urine Nitrite Urine Bilirubin Urine Urobilinogen Ur Leukocyte Esterase Urine WBC (Auto) Urine RBC (Auto) Urine Casts (Auto) U Pathogenic Cast Auto U Epithel Cells (Auto) U Sm Round Cell (Auto) Urine Crystals (Auto) Urine Bacteria (Auto) Ur Random Creatinine 238.0 H U Random Total Protein 390.5 H Ur Random Urea Nitrogn Cancelled 320 L HIV 1&2 Antibody Screen Negative HIV P24 Antigen Negative 11/06/18 11/06/18 11/06/18 05:30 05:30 05:58 WBC 9.8 RBC 2.50 L Hgb 7.1 L Hct 21.6 L MCV 86.6 MCH 28.2 MCHC 32.6 RDW 14.6 Plt Count 249 MPV 8.4 Absolute Neuts (auto) 8.3 H Neutrophils % 84.7 H Lymphocytes % 6.8 L D Monocytes % 8.3 Eosinophils % 0.1 Basophils % 0.1 Nucleated RBC % 0 Sodium 134 L Potassium 4.9 Chloride 100 Carbon Dioxide 23 Anion Gap 11 BUN 117 H* Creatinine 6.1 H Creat Clearance w eGFR 9.56 POC Glucometer 156 Random Glucose 152 H Calcium 8.0 L Phosphorus 5.9 H Magnesium 2.0 Total Bilirubin 0.7 AST 19 ALT 43 Alkaline Phosphatase 101 Total Protein 5.8 L Albumin 2.1 L Urine Color Urine Appearance Urine pH Ur Specific [place] Urine Protein Urine Glucose (UA) Urine Ketones Urine Blood Urine Nitrite Urine Bilirubin Urine Urobilinogen Ur Leukocyte Esterase Urine WBC (Auto) Urine RBC (Auto) Urine Casts (Auto) U Pathogenic Cast Auto U Epithel Cells (Auto) U Sm Round Cell (Auto) Urine Crystals (Auto) Urine Bacteria (Auto) Ur Random Creatinine U Random Total Protein Ur Random Urea Nitrogn HIV 1&2 Antibody Screen HIV P24 Antigen 11/06/18 11:26 WBC RBC Hgb Hct MCV MCH MCHC RDW Plt Count MPV Absolute Neuts (auto) Neutrophils % Lymphocytes % Monocytes % Eosinophils % Basophils % Nucleated RBC % Sodium Potassium Chloride Carbon Dioxide Anion Gap BUN Creatinine Creat Clearance w eGFR POC Glucometer 171 Random Glucose Calcium Phosphorus Magnesium Total Bilirubin AST ALT Alkaline Phosphatase Total Protein Albumin Urine Color Urine Appearance Urine pH Ur Specific [place] Urine Protein Urine Glucose (UA) Urine Ketones Urine Blood Urine Nitrite Urine Bilirubin Urine Urobilinogen Ur Leukocyte Esterase Urine WBC (Auto) Urine RBC (Auto) Urine Casts (Auto) U Pathogenic Cast Auto U Epithel Cells (Auto) U Sm Round Cell (Auto) Urine Crystals (Auto) Urine Bacteria (Auto) Ur Random Creatinine U Random Total Protein Ur Random Urea Nitrogn HIV 1&2 Antibody Screen HIV P24 Antigen Active Medications Generic Name Dose Route Start Last Admin Trade Name Freq PRN Reason Stop Dose Admin Acetaminophen 650 mg 10/28/18 16:55 11/05/18 22:30 Tylenol - PO 650 mg Q6H PRN Administration PAIN LEVEL 1-5 Ergocalciferol 50,000 unit 10/26/18 12:00 11/02/18 11:58 Drisdol - PO 50,000 unit Mo [facility] Administration Finasteride 5 mg 11/03/18 14:30 11/06/18 10:26 Proscar - PO 5 mg DAILY [facility] Administration Guaifenesin 5 ml 10/29/18 20:47 11/06/18 06:29 Diabetic Tussin Dm - PO 5 ml Q6H PRN Administration COUGH Hydralazine HCl 50 mg 10/26/18 14:00 11/06/18 14:40 Apresoline - PO 50 mg TID [facility] Administration Furosemide 100 mg/ Dextrose 50 mls @ 7.5 mls/hr 11/05/18 16:55 11/05/18 17:20 IVPB 15 mg/hr TITR [facility] 7.5 mls/hr Administration Protocol 15 MG/HR Cefepime HCl 2 gm/ Dextrose 100 mls @ 200 mls/hr 11/05/18 17:00 11/06/18 10: 26 IVPB 200 mls/hr DAILY [facility] Administration Protocol Insulin Aspart 1 vial 10/26/18 16:30 11/06/18 11:34 Novolog Vial Sliding Scale - SQ 2 units TIDAC [facility] Administration Protocol Isosorbide Mononitrate 30 mg 10/27/18 10:00 11/06/18 10:26 Imdur - PO 30 mg DAILY [facility] Administration Labetalol HCl 300 mg 10/26/18 22:00 11/06/18 10:26 Normodyne - PO 300 mg BID [facility] Administration Ranolazine 500 mg 10/26/18 22:00 11/06/18 10:26 Ranexa - PO 500 mg BID [facility] Administration Tamsulosin HCl 0.8 mg 11/04/18 08:30 11/06/18 10:26 Flomax - PO 0.8 mg DAILY@0830 [facility] Administration Microbiology 11/04/18 13:00 Blood - Peripheral Venous Blood Culture - Preliminary NO GROWTH OBTAINED AFTER 48 HOURS, INCUBATION TO CONTINUE FOR 3 DAYS. 11/05/18 04:10 Urine - Urine - Catheterized Urine Culture - Preliminary Lactose Fermenting Neg Bacilli Beta Hemolytic Strep 11/04/18 12:53 Blood - Peripheral Venous Blood Culture - Preliminary Lactose Fermenting Neg Bacilli ASSESSMENT/PLAN: The patient is 58 yo m with PMX of CAD, HTN, HLD, NIDDM, CKD stage III, admitted with CHF exacerbation. Acute systolic heart failure exacerbation -Lasix drip on hold today as per Nephrology, symptoms unchanged, Oxygenating well on 2 L NC, will obtain ABG for patient lethargy -agreed to Danny, will monitor strict I&O, -450 -f/u cardiology recommendations -daily weights -h/o of cardiomyopathy EF 40-45% CKD stage III -no significant diuresis, lasix drip on hold, kidney function is getting worse: BUN 117, Cr 6.1 -f/u ranal recommendations, no plans for HD yet, -no ACEI/ARB for CKD -plan for biopsy on 11/09/18 fever: -the patient had low grade fever, -unknown source for now, maybe urine -blood cultures Lactose ferm neg balicilli -cxr done, unchanged, possible infiltrates -consulted ID, Cefepime started, -repeat cultures ordered CAD -continue home medications: Ranexa, Imdur, -no Plavix and ASA for kidney biopsy Left pleural effusion -likely transudative -stable HTN -cont home meds: Hydralazine, Labetalol NIDDM -ISS ACHS -BGM ACHS BPH: -cont Flomax DVT PPX: Heparin sq DISPO; telemetry monitoring Problem List - Problems (1) CAD (coronary artery disease) Code(s): I25.10 - ATHSCL HEART DISEASE OF [place] CORONARY ARTERY W/O ANG PCTRS (2) CHF (congestive heart failure) Code(s): I50.9 - HEART FAILURE, UNSPECIFIED Qualifiers: Heart failure type: systolic Heart failure chronicity: acute on chronic Qualified Code(s): I50.23 - Acute on chronic systolic (congestive) heart failure (3) CKD (chronic kidney disease) stage 4, GFR 15-29 ml/min Code(s): N18.4 - CHRONIC KIDNEY DISEASE, STAGE 4 (SEVERE) (4) Pleural effusion, bilateral Code(s): J90 - PLEURAL EFFUSION, NOT ELSEWHERE CLASSIFIED (5) GABI (acute kidney injury) Code(s): N17.9 - ACUTE KIDNEY FAILURE, UNSPECIFIED (6) PAD (peripheral artery disease) Code(s): I73.9 - PERIPHERAL VASCULAR DISEASE, UNSPECIFIED (7) Shortness of breath Code(s): R06.02 - SHORTNESS OF BREATH Visit type - Emergency Visit Emergency Visit: Yes ED Registration Date: 10/26/18 Care time: The patient presented to the Emergency Department on the above date and was hospitalized for further evaluation of their emergent condition. - New Patient This patient is new to me today: No - Critical Care Critical Care patient: No - Discharge Referral Referred to [facility] Med [facility].: No
--- NOTE | 2018-11-06 15:55 | PN ---
Progress Note, Physician History of Present Illness: AWAKE, LETHARGIC OFFERS NO COMPLAINTS LOW GRADE TEMP WBC WNL BC LF - Current Medication List Current Medications: Active Medications Acetaminophen (Tylenol -) 650 mg PO Q6H PRN PRN Reason: PAIN LEVEL 1-5 Last Admin: 11/05/18 22:30 Dose: 650 mg Ergocalciferol (Drisdol -) 50,000 unit PO Mo [facility] Last Admin: 11/02/18 11:58 Dose: 50,000 unit Finasteride (Proscar -) 5 mg PO DAILY [facility] Last Admin: 11/06/18 10:26 Dose: 5 mg Guaifenesin (Diabetic Tussin Dm -) 5 ml PO Q6H PRN PRN Reason: COUGH Last Admin: 11/06/18 06:29 Dose: 5 ml Hydralazine HCl (Apresoline -) 50 mg PO TID [facility] Last Admin: 11/06/18 14:40 Dose: 50 mg Furosemide 100 mg/ Dextrose 50 mls @ 7.5 mls/hr IVPB TITR [facility]; Protocol Last Admin: 11/05/18 17:20 Dose: 15 mg/hr, 7.5 mls/hr Cefepime HCl 2 gm/ Dextrose 100 mls @ 200 mls/hr IVPB DAILY [facility]; Protocol Last Admin: 11/06/18 10:26 Dose: 200 mls/hr Insulin Aspart (Novolog Vial Sliding Scale -) 1 vial SQ TIDAC [facility]; Protocol Last Admin: 11/06/18 11:34 Dose: 2 units Isosorbide Mononitrate (Imdur -) 30 mg PO DAILY [facility] Last Admin: 11/06/18 10:26 Dose: 30 mg Labetalol HCl (Normodyne -) 300 mg PO BID [facility] Last Admin: 11/06/18 10:26 Dose: 300 mg Ranolazine (Ranexa -) 500 mg PO BID [facility] Last Admin: 11/06/18 10:26 Dose: 500 mg Tamsulosin HCl (Flomax -) 0.8 mg PO DAILY@0830 [facility] Last Admin: 11/06/18 10:26 Dose: 0.8 mg - Objective Vital Signs: Vital Signs Temperature 98.2 F 11/06/18 14:10 Pulse Rate 67 11/06/18 14:10 Respiratory Rate 18 11/06/18 14:10 Blood Pressure 137/51 L 11/06/18 14:10 O2 Sat by Pulse Oximetry (%) 95 11/06/18 09:00 Constitutional: Yes: No Distress Eyes: Yes: Conjunctiva Clear Cardiovascular: Yes: Regular Rate and Rhythm, S1, S2 Respiratory: Yes: CTA Bilaterally Gastrointestinal: Yes: Normal Bowel Sounds, Soft. No: Tenderness Edema: Yes Edema: LLE: 3+, RLE: 3+ Labs: CBC, BMP 11/06/18 05:30 11/06/18 05:30 INR, PTT INR 1.27 (0.83-1.09) H 10/26/18 09:50 Assessment/Plan GRAM NEGATIVE BACTEREMIA/ SEPSIS ? SOURCE RENAL FAILURE HX URINARY RETENTION AWAIT C/S CONTINUE EMPIRIC CEFEPIME
[2018-11-06 16:32] LABS: ARTERIAL BLD GAS O2 SATURATION 94.6 % (95-98); ARTERIAL BLOOD GAS BASE EXCESS -2.7 meq/l (-2-2); ARTERIAL BLOOD GAS PCO2 39.5 mmHg (35-45); ARTERIAL BLOOD GAS pH 7.36 (7.35-7.45)
[2018-11-06 16:37] LABS: ALLENS TEST POSITIVE
--- NOTE | 2018-11-06 17:07 | PN ---
Teaching Attending Note Name of Resident: Korina Whittington ATTENDING PHYSICIAN STATEMENT I saw and evaluated the patient. I reviewed the resident's note and discussed the case with the resident. I agree with the resident's findings and plan as documented. SUBJECTIVE: Mr Prater complains of feeling really tired today. Denies cp, sob, n /v. OBJECTIVE: Last Vital Signs Temp Pulse Resp BP Pulse Ox 36.8 C 67 18 137/51 L 95 11/06/18 14:10 11/06/18 14:10 11/06/18 14:10 11/06/18 14:10 11/06/18 09:00 Gen: nad, appears fatigued Pulm: ctab w/o w/r/r CV: rrr w/o m/r/g Abd: +bs, s/nt/nd Ext: 2+ BLE edema CBC, BMP 11/06/18 05:30 11/06/18 05:30 ASSESSMENT AND PLAN: (1) CHF (congestive heart failure) Assessment/Plan: -no significant diuresis -hold diuresis today -cardiology following and note reviewed -may need HD Code(s): I50.9 - HEART FAILURE, UNSPECIFIED Qualifiers: Heart failure type: systolic Heart failure chronicity: acute on chronic Qualified Code(s): I50.23 - Acute on chronic systolic (congestive) heart failure (2) GABI (acute kidney injury) Assessment/Plan -Dr Quiroz following -planning for biopsy Friday -may need HD -uremia increasing and with lethargy today -will also check ABG to monitor for possible retention or acidosis Code(s): N17.9 - ACUTE KIDNEY FAILURE, UNSPECIFIED (3) CKD (chronic kidney disease) stage 4, GFR 15-29 ml/min Assessment/Plan: -worsening -nephrology following Code(s): N18.4 - CHRONIC KIDNEY DISEASE, STAGE 4 (SEVERE) (4) Sepsis secondary to UTI Assessment/Plan: -urine and blood culture positive -appreciate ID assistance -now on cefepime Code(s): A41.9 - SEPSIS, UNSPECIFIED ORGANISM (5) Insulin dependent diabetes mellitus Assessment/Plan: -continue diabetic diet and insulin Code(s): E11.9 - TYPE 2 DIABETES MELLITUS WITHOUT COMPLICATIONS; Z79.4 - MCC (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 OF INSULIN Problem List - Problems (1) CHF (congestive heart failure) Code(s): I50.9 - HEART FAILURE, UNSPECIFIED Qualifiers: Heart failure type: systolic Heart failure chronicity: acute on chronic Qualified Code(s): I50.23 - Acute on chronic systolic (congestive) heart failure (2) GABI (acute kidney injury) Code(s): N17.9 - ACUTE KIDNEY FAILURE, UNSPECIFIED (3) CKD (chronic kidney disease) stage 4, GFR 15-29 ml/min Code(s): N18.4 - CHRONIC KIDNEY DISEASE, STAGE 4 (SEVERE) (4) Sepsis Code(s): A41.9 - SEPSIS, UNSPECIFIED ORGANISM (5) Insulin dependent diabetes mellitus Code(s): E11.9 - TYPE 2 DIABETES MELLITUS WITHOUT COMPLICATIONS; 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
[2018-11-07] MEDS: INSULIN SLIDING SCALE (NOVOLOG) 1 VIAL SQ SCH ×3 (06:22→17:05)
[2018-11-07] MEDS: hydrALAZINE HCL 50 MG TABLET (FP) PO SCH ×3 (06:22→21:34)
[2018-11-07] MEDS: TAMSULOSIN HCL 0.4 MG CAP PO SCH (08:25)
[2018-11-07 08:46] LABS: BASO % 0.3 % (0-2.0); EOS % 0.2 % (0-4.5); HEMATOCRIT 20.6 % (35.4-49); LYMPH % 5.5 % (8-40); MCH 27.9 pg (25.7-33.7); MCHC 32.5 g/dl (32.0-35.9); MEAN CELL VOLUME 86.1 fl (80-96); MEAN PLT VOLUME 8.1 fl (7.5-11.1); MONO % 7.9 % (3.8-10.2); NEUT % 86.1 % (42.8-82.8); PLATELET COUNT 295 K/MM3 (134-434); RBC 2.39 M/mm3 (4.00-5.60); RDW 14.4 % (11.9-15.9); WHITE BLOOD COUNT 10.3 K/mm3 (4.0-10.0)
[2018-11-07 09:03] LABS: ANION GAP 12 MMOL/L (8-16); CALCIUM 7.9 mg/dL (8.5-10.1); CHLORIDE 99 mmol/L (98-107); CO2 22 mmol/L (21-32); CREATININE 6.5 mg/dL (0.55-1.3); GLUCOSE,RANDOM 146 mg/dL (74-106); MAGNESIUM 2.3 mg/dL (1.8-2.4); PHOSPHOROUS 5.4 mg/dL (2.5-4.9); POTASSIUM 5.1 mmol/L (3.5-5.1); SODIUM 134 mmol/L (136-145)
[2018-11-07 09:14] LABS: BLOOD UREA NITROGEN 133 mg/dL (7-18)
[2018-11-07 09:45] LABS: HEMOGLOBIN 6.7 GM/dL (11.7-16.9)
--- NOTE | 2018-11-07 10:19 | PN ---
Progress Note (short form) - Note Progress Note: chart reviewed doing poorly haider placed 5/2 minimal urine output notes some sob at night Vital Signs Period Temp Pulse Resp BP Sys/Lopez Pulse Ox Last 24 Hr 98.0 F-98.6 F 66-68 18-20 122-137/51-63 98 cor-rrr lungs decreased bs at bases abd soft, +abdominal wall edema ext +edema +haider CBC, BMP 11/07/18 08:00 11/07/18 08:00 Microbiology 11/04/18 13:00 Blood - Peripheral Venous Blood Culture - Preliminary NO GROWTH OBTAINED AFTER 48 HOURS, INCUBATION TO CONTINUE FOR 3 DAYS. 11/05/18 04:10 Urine - Urine - Catheterized Urine Culture - Preliminary Lactose Fermenting Neg Bacilli Beta Hemolytic Strep 11/04/18 12:53 Blood - Peripheral Venous Blood Culture - Preliminary Lactose Fermenting Neg Bacilli Current Medications Acetaminophen (Tylenol -) 650 mg PO Q6H PRN PRN Reason: PAIN LEVEL 1-5 Last Admin: 11/05/18 22:30 Dose: 650 mg Ergocalciferol (Drisdol -) 50,000 unit PO Mo [facility] Last Admin: 11/02/18 11:58 Dose: 50,000 unit Finasteride (Proscar -) 5 mg PO DAILY [facility] Last Admin: 11/06/18 10:26 Dose: 5 mg Guaifenesin (Diabetic Tussin Dm -) 5 ml PO Q6H PRN PRN Reason: COUGH Last Admin: 11/06/18 06:29 Dose: 5 ml Hydralazine HCl (Apresoline -) 50 mg PO TID [facility] Last Admin: 11/07/18 06:22 Dose: 50 mg Furosemide 100 mg/ Dextrose 50 mls @ 7.5 mls/hr IVPB TITR [facility]; Protocol Last Admin: 11/05/18 17:20 Dose: 15 mg/hr, 7.5 mls/hr Cefepime HCl 2 gm/ Dextrose 100 mls @ 200 mls/hr IVPB DAILY [facility]; Protocol Last Admin: 11/06/18 10:26 Dose: 200 mls/hr Insulin Aspart (Novolog Vial Sliding Scale -) 1 vial SQ TIDAC [facility]; Protocol Last Admin: 11/07/18 06:22 Dose: 2 units Isosorbide Mononitrate (Imdur -) 30 mg PO DAILY [facility] Last Admin: 11/06/18 10:26 Dose: 30 mg Labetalol HCl (Normodyne -) 300 mg PO BID [facility] Last Admin: 11/06/18 21:58 Dose: 300 mg Ranolazine (Ranexa -) 500 mg PO BID [facility] Last Admin: 11/06/18 21:59 Dose: 500 mg Tamsulosin HCl (Flomax -) 0.8 mg PO DAILY@0830 [facility] Last Admin: 11/06/18 10:26 Dose: 0.8 mg a/p gram negative bacteremia secondary to UTI worsening renal function history of CHF type 2 DM continue cefepime, f/u cultures renal f/u ongoing
--- NOTE | 2018-11-07 10:33 | PN ---
Progress Note, Physician History of Present Illness: No complaints Breathing improving Tele: NSR - Current Medication List Current Medications: Active Medications Acetaminophen (Tylenol -) 650 mg PO Q6H PRN PRN Reason: PAIN LEVEL 1-5 Last Admin: 11/05/18 22:30 Dose: 650 mg Ergocalciferol (Drisdol -) 50,000 unit PO Mo [facility] Last Admin: 11/02/18 11:58 Dose: 50,000 unit Finasteride (Proscar -) 5 mg PO DAILY [facility] Last Admin: 11/06/18 10:26 Dose: 5 mg Guaifenesin (Diabetic Tussin Dm -) 5 ml PO Q6H PRN PRN Reason: COUGH Last Admin: 11/06/18 06:29 Dose: 5 ml Hydralazine HCl (Apresoline -) 50 mg PO TID [facility] Last Admin: 11/07/18 06:22 Dose: 50 mg Furosemide 100 mg/ Dextrose 50 mls @ 7.5 mls/hr IVPB TITR [facility]; Protocol Last Admin: 11/05/18 17:20 Dose: 15 mg/hr, 7.5 mls/hr Cefepime HCl 2 gm/ Dextrose 100 mls @ 200 mls/hr IVPB DAILY [facility]; Protocol Last Admin: 11/06/18 10:26 Dose: 200 mls/hr Insulin Aspart (Novolog Vial Sliding Scale -) 1 vial SQ TIDAC [facility]; Protocol Last Admin: 11/07/18 06:22 Dose: 2 units Isosorbide Mononitrate (Imdur -) 30 mg PO DAILY [facility] Last Admin: 11/06/18 10:26 Dose: 30 mg Labetalol HCl (Normodyne -) 300 mg PO BID [facility] Last Admin: 11/06/18 21:58 Dose: 300 mg Ranolazine (Ranexa -) 500 mg PO BID [facility] Last Admin: 11/06/18 21:59 Dose: 500 mg Tamsulosin HCl (Flomax -) 0.8 mg PO DAILY@0830 [facility] Last Admin: 11/06/18 10:26 Dose: 0.8 mg - Objective Vital Signs: Vital Signs Temperature 98.6 F 11/07/18 06:00 Pulse Rate 68 11/07/18 06:00 Respiratory Rate 20 11/07/18 06:00 Blood Pressure 122/62 11/07/18 06:00 O2 Sat by Pulse Oximetry (%) 98 11/06/18 22:00 Constitutional: Yes: No Distress Cardiovascular: Yes: Regular Rate and Rhythm Respiratory: Yes: CTA Bilaterally Edema: RUE: 2+, LLE: 2+ Labs: CBC, BMP 11/07/18 08:00 11/07/18 08:00 INR, PTT INR 1.27 (0.83-1.09) H 10/26/18 09:50 Assessment/Plan 1. Acute systolic HF exacerbation: - EF 40-45% - cont labetolol, not on ACEI/ARB for CKD - continue hydralzine and imdur. BP is controlled. - Hypoalbuminemia may also be contributing to edema 2. CKD - Cr 2.4 on admission, rising now 6.5., K 5.1 - renal following - holding aspirin and plavix for kidney bx -May need HD for further volume removal 3. CAD: - s/p FER most recently 09/2017, 10/2017 - on aspirin and plavix, holding for planned kidney bx 4. HTN: - stable, continue home meds
[2018-11-07] MEDS: LABETALOL HCL 100 MG TABLET (FP) PO SCH ×2 (10:53→21:33)
[2018-11-07] MEDS: FINASTERIDE 5 MG TABLET (FP) PO SCH (10:54)
[2018-11-07] MEDS: ISOSORBIDE MONONITRATE 30 MG TAB.SR.24H (FP) PO SCH (10:54)
[2018-11-07] MEDS: CEFEPIME 2 GM in DEXTROSE 5%-WATER 100 ML IVPB SCH (10:54)
[2018-11-07] MEDS: RANOLAZINE E.R. 500 MG TABLET (FP) PO SCH ×2 (10:54→21:33)
--- NOTE | 2018-11-07 11:10 | PN ---
Progress Note (short form) - Note Progress Note: Renal follow up for CKD Pt seen and examined at the bedside feels fatigued and groggy no overt sob, chest pain, N/V, metallic taste in mouth, hand shaking not making much urine after stopping lasix no melena reported by nurse Vital Signs Temperature 98.3 F 11/07/18 08:30 Pulse Rate 66 11/07/18 08:30 Respiratory Rate 20 11/07/18 08:30 Blood Pressure 119/67 11/07/18 08:30 O2 Sat by Pulse Oximetry (%) 100 11/07/18 09:00 Intake & Output 11/04/18 11/05/18 11/06/18 11/07/18 23:59 23:59 23:59 23:59 Intake Total 550 Output Total 400 450 200 Balance -400 -450 350 Weight 131.542 kg 137.711 kg NAD RRR, no M/R Dec BS at lung bases, no rales soft obese, NT/ND + upper extremity edema ++ bilateral LE edema CBC, BMP 11/07/18 08:00 11/07/18 08:00 Current Medications Acetaminophen (Tylenol -) 650 mg PO Q6H PRN PRN Reason: PAIN LEVEL 1-5 Last Admin: 11/05/18 22:30 Dose: 650 mg Ergocalciferol (Drisdol -) 50,000 unit PO Mo [facility] Last Admin: 11/02/18 11:58 Dose: 50,000 unit Finasteride (Proscar -) 5 mg PO DAILY [facility] Last Admin: 11/07/18 10:54 Dose: 5 mg Guaifenesin (Diabetic Tussin Dm -) 5 ml PO Q6H PRN PRN Reason: COUGH Last Admin: 11/06/18 06:29 Dose: 5 ml Hydralazine HCl (Apresoline -) 50 mg PO TID [facility] Last Admin: 11/07/18 06:22 Dose: 50 mg Furosemide 100 mg/ Dextrose 50 mls @ 7.5 mls/hr IVPB TITR [facility]; Protocol Last Admin: 11/05/18 17:20 Dose: 15 mg/hr, 7.5 mls/hr Cefepime HCl 2 gm/ Dextrose 100 mls @ 200 mls/hr IVPB DAILY [facility]; Protocol Last Admin: 11/07/18 10:54 Dose: 200 mls/hr Insulin Aspart (Novolog Vial Sliding Scale -) 1 vial SQ TIDAC [facility]; Protocol Last Admin: 11/07/18 06:22 Dose: 2 units Isosorbide Mononitrate (Imdur -) 30 mg PO DAILY [facility] Last Admin: 11/07/18 10:54 Dose: 30 mg Labetalol HCl (Normodyne -) 300 mg PO BID [facility] Last Admin: 11/07/18 10:53 Dose: 300 mg Ranolazine (Ranexa -) 500 mg PO BID [facility] Last Admin: 11/07/18 10:54 Dose: 500 mg Tamsulosin HCl (Flomax -) 0.8 mg PO DAILY@0830 [facility] Last Admin: 11/07/18 08:25 Dose: 0.8 mg 58 year old gentleman with hx of CKD with proteinuria, CHF, CAD s/p PCI, Hypertension, hyperlipidemia who preesnted from home with LE swelling and sob and admitted for CHF exacerbation with Cr of 2.4-2.6. #CHF exacerbation #GABI w/o clear etiology #Proteinuria #CAD #HLD Renal function continues to worsen will likely require at least short term HD until exact renal pathology can be determined by biopsy no emergent indication for [employer]CIN[employer] today however if no change in clinical status may require in next 24-48 hours will transfuse 1 unit of PRBC today Will also give Lasix 120mg IVPB following blood check CXR in AM Renal biospy is tentatively scheduled for Friday but may defer to Friday if he needs acute HD Dose all meds for CrCl < 10 Thank you Mansoor Quiroz DO
--- NOTE | 2018-11-07 14:17 | PN ---
Progress Note, Physician Chief Complaint: Mr Prater says he feels very tired today but feels "blessed". Denies cp, sob, n/ v. - Current Medication List Current Medications: Active Medications Acetaminophen (Tylenol -) 650 mg PO Q6H PRN PRN Reason: PAIN LEVEL 1-5 Last Admin: 11/05/18 22:30 Dose: 650 mg Ergocalciferol (Drisdol -) 50,000 unit PO Mo [facility] Last Admin: 11/02/18 11:58 Dose: 50,000 unit Finasteride (Proscar -) 5 mg PO DAILY [facility] Last Admin: 11/07/18 10:54 Dose: 5 mg Furosemide (Lasix Injection -) 120 mg IVPB [facility] Stop: 11/07/18 15:01 Guaifenesin (Diabetic Tussin Dm -) 5 ml PO Q6H PRN PRN Reason: COUGH Last Admin: 11/06/18 06:29 Dose: 5 ml Hydralazine HCl (Apresoline -) 50 mg PO TID [facility] Last Admin: 11/07/18 13:39 Dose: 50 mg Furosemide 100 mg/ Dextrose 50 mls @ 7.5 mls/hr IVPB TITR [facility]; Protocol Last Admin: 11/05/18 17:20 Dose: 15 mg/hr, 7.5 mls/hr Cefepime HCl 2 gm/ Dextrose 100 mls @ 200 mls/hr IVPB DAILY [facility]; Protocol Last Admin: 11/07/18 10:54 Dose: 200 mls/hr Insulin Aspart (Novolog Vial Sliding Scale -) 1 vial SQ TIDAC [facility]; Protocol Last Admin: 11/07/18 11:40 Dose: Not Given Isosorbide Mononitrate (Imdur -) 30 mg PO DAILY [facility] Last Admin: 11/07/18 10:54 Dose: 30 mg Labetalol HCl (Normodyne -) 300 mg PO BID [facility] Last Admin: 11/07/18 10:53 Dose: 300 mg Ranolazine (Ranexa -) 500 mg PO BID [facility] Last Admin: 11/07/18 10:54 Dose: 500 mg Tamsulosin HCl (Flomax -) 0.8 mg PO DAILY@0830 [facility] Last Admin: 11/07/18 08:25 Dose: 0.8 mg - Objective Vital Signs: Vital Signs Temperature 36.8 C 11/07/18 08:30 Pulse Rate 66 11/07/18 08:30 Respiratory Rate 20 11/07/18 08:30 Blood Pressure 119/67 11/07/18 08:30 O2 Sat by Pulse Oximetry (%) 100 11/07/18 09:00 Constitutional: Yes: No Distress, Calm, Obese Cardiovascular: Yes: Regular Rate and Rhythm. No: Gallop, Murmur, Rub Respiratory: Yes: Regular, CTA Bilaterally. No: Rales, Rhonchi, Wheezes Gastrointestinal: Yes: Normal Bowel Sounds, Soft. No: Distention, Tenderness Extremities: Yes: WNL Edema: Yes Edema: LLE: 3+, RLE: 3+ Labs: CBC, BMP 11/07/18 08:00 11/07/18 08:00 INR, PTT INR 1.27 (0.83-1.09) H 10/26/18 09:50 Problem List - Problems (1) CHF (congestive heart failure) Code(s): I50.9 - HEART FAILURE, UNSPECIFIED Qualifiers: Heart failure type: systolic Heart failure chronicity: acute on chronic Qualified Code(s): I50.23 - Acute on chronic systolic (congestive) heart failure (2) GABI (acute kidney injury) Code(s): N17.9 - ACUTE KIDNEY FAILURE, UNSPECIFIED (3) CKD (chronic kidney disease) stage 4, GFR 15-29 ml/min Code(s): N18.4 - CHRONIC KIDNEY DISEASE, STAGE 4 (SEVERE) (4) Sepsis Code(s): A41.9 - SEPSIS, UNSPECIFIED ORGANISM (5) Insulin dependent diabetes mellitus Code(s): E11.9 - TYPE 2 DIABETES MELLITUS WITHOUT COMPLICATIONS; 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 (6) UTI (urinary tract infection) Code(s): N39.0 - URINARY TRACT INFECTION, SITE NOT SPECIFIED Qualifiers: Urinary tract infection type: acute cystitis Hematuria presence: without hematuria Qualified Code(s): N30.00 - Acute cystitis without hematuria Assessment/Plan (1) CHF (congestive heart failure) Assessment/Plan: -will need HD -will get lasix 100mg IV today since receiving blood Code(s): I50.9 - HEART FAILURE, UNSPECIFIED Qualifiers: Heart failure type: systolic Heart failure chronicity: acute on chronic Qualified Code(s): I50.23 - Acute on chronic systolic (congestive) heart failure (2) GABI (acute kidney injury) Assessment/Plan -Dr Quiroz following and case discussed -planning for biopsy Friday -will need HD Code(s): N17.9 - ACUTE KIDNEY FAILURE, UNSPECIFIED (3) CKD (chronic kidney disease) stage 4, GFR 15-29 ml/min Assessment/Plan: -worsening -nephrology following Code(s): N18.4 - CHRONIC KIDNEY DISEASE, STAGE 4 (SEVERE) (4) Sepsis secondary to UTI Assessment/Plan: -urine and blood culture positive -blood cultures growing e coli -urine cultures growing e coli and GBS -appreciate ID assistance and note -now on cefepime Code(s): A41.9 - SEPSIS, UNSPECIFIED ORGANISM (5) Insulin dependent diabetes mellitus Assessment/Plan: -continue diabetic diet and insulin Code(s): E11.9 - TYPE 2 DIABETES MELLITUS WITHOUT COMPLICATIONS; 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
[2018-11-07] MEDS ORDERED: FUROSEMIDE 40 MG/4 ML INJECTABLE VIAL IVPB ONE (15:00)
[2018-11-08] MEDS: INSULIN SLIDING SCALE (NOVOLOG) 1 VIAL SQ SCH ×3 (07:11→17:08)
[2018-11-08] MEDS: hydrALAZINE HCL 50 MG TABLET (FP) PO SCH ×3 (07:11→21:17)
[2018-11-08 08:28] LABS: BASO % 0.1 % (0-2.0); EOS % 0.3 % (0-4.5); HEMATOCRIT 21.9 % (35.4-49); HEMOGLOBIN 7.3 GM/dL (11.7-16.9); MCH 28.4 pg (25.7-33.7); MCHC 33.4 g/dl (32.0-35.9); MEAN CELL VOLUME 84.9 fl (80-96); MEAN PLT VOLUME 7.6 fl (7.5-11.1); MONO % 9.3 % (3.8-10.2); NEUT % 84.3 % (42.8-82.8); PLATELET COUNT 328 K/MM3 (134-434); RBC 2.58 M/mm3 (4.00-5.60); RDW 14.3 % (11.9-15.9); WHITE BLOOD COUNT 10.7 K/mm3 (4.0-10.0)
[2018-11-08] MEDS: TAMSULOSIN HCL 0.4 MG CAP PO SCH (09:03)
[2018-11-08 09:06] LABS: ALK PHOS 105 U/L (45-117); ANION GAP 14 MMOL/L (8-16); BILIRUBIN,TOTAL 0.6 mg/dL (0.2-1); CHLORIDE 99 mmol/L (98-107); CO2 22 mmol/L (21-32); CREATININE 6.8 mg/dL (0.55-1.3); GLUCOSE,RANDOM 141 mg/dL (74-106); MAGNESIUM 2.4 mg/dL (1.8-2.4); PHOSPHOROUS 5.5 mg/dL (2.5-4.9); POTASSIUM 4.9 mmol/L (3.5-5.1); SGOT/AST 19 U/L (15-37); SGPT/ALT 39 U/L (13-61); SODIUM 134 mmol/L (136-145); TOT PROT 5.7 g/dl (6.4-8.2)
[2018-11-08 09:08] LABS: BLOOD UREA NITROGEN 149 mg/dL (7-18)
[2018-11-08] MEDS ORDERED: PT OWN MED DRAWER 7, Y5N ONE ×2 (09:29→18:39)
[2018-11-08] MEDS: ISOSORBIDE MONONITRATE 30 MG TAB.SR.24H (FP) PO SCH (10:03)
[2018-11-08] MEDS: FINASTERIDE 5 MG TABLET (FP) PO SCH (10:03)
[2018-11-08] MEDS: LABETALOL HCL 100 MG TABLET (FP) PO SCH ×2 (10:03→21:17)
[2018-11-08] MEDS: RANOLAZINE E.R. 500 MG TABLET (FP) PO SCH ×2 (10:03→21:17)
[2018-11-08] MEDS: CEFEPIME 2 GM in DEXTROSE 5%-WATER 100 ML IVPB SCH (10:04)
--- NOTE | 2018-11-08 10:14 | PN ---
Progress Note (short form) - Note Progress Note: Renal follow up for CKD Pt seen and examined at the bedside feels the same as yesterday no sob, cp, fever or chills remains anuric no N/V, confusion or tremors Vital Signs Temperature 98.0 F 11/08/18 06:40 Pulse Rate 74 11/08/18 06:40 Respiratory Rate 20 11/08/18 06:40 Blood Pressure 143/74 11/08/18 06:40 O2 Sat by Pulse Oximetry (%) 98 11/07/18 20:15 Intake & Output 11/05/18 11/06/18 11/07/18 11/08/18 23:59 23:59 23:59 23:59 Intake Total 550 270 Output Total 450 200 150 300 Balance -450 350 120 -300 Weight 137.711 kg 137.257 kg NAD RRR, no M/R Dec BS at lung bases, no rales soft obese, NT/ND + upper extremity edema ++ bilateral LE edema CBC, BMP 11/08/18 05:30 11/08/18 05:30 Current Medications Acetaminophen (Tylenol -) 650 mg PO Q6H PRN PRN Reason: PAIN LEVEL 1-5 Last Admin: 11/05/18 22:30 Dose: 650 mg Ergocalciferol (Drisdol -) 50,000 unit PO Mo [facility] Last Admin: 11/02/18 11:58 Dose: 50,000 unit Finasteride (Proscar -) 5 mg PO DAILY [facility] Last Admin: 11/08/18 10:03 Dose: 5 mg Guaifenesin (Diabetic Tussin Dm -) 5 ml PO Q6H PRN PRN Reason: COUGH Last Admin: 11/06/18 06:29 Dose: 5 ml Hydralazine HCl (Apresoline -) 50 mg PO TID [facility] Last Admin: 11/08/18 07:11 Dose: 50 mg Furosemide 100 mg/ Dextrose 50 mls @ 7.5 mls/hr IVPB TITR [facility]; Protocol Last Admin: 11/05/18 17:20 Dose: 15 mg/hr, 7.5 mls/hr Cefepime HCl 2 gm/ Dextrose 100 mls @ 200 mls/hr IVPB DAILY [facility]; Protocol Last Admin: 11/08/18 10:04 Dose: 200 mls/hr Insulin Aspart (Novolog Vial Sliding Scale -) 1 vial SQ TIDAC [facility]; Protocol Last Admin: 11/08/18 07:11 Dose: Not Given Isosorbide Mononitrate (Imdur -) 30 mg PO DAILY [facility] Last Admin: 11/08/18 10:03 Dose: 30 mg Labetalol HCl (Normodyne -) 300 mg PO BID [facility] Last Admin: 11/08/18 10:03 Dose: 300 mg Ranolazine (Ranexa -) 500 mg PO BID [facility] Last Admin: 11/08/18 10:03 Dose: 500 mg Tamsulosin HCl (Flomax -) 0.8 mg PO DAILY@0830 [facility] Last Admin: 11/08/18 09:03 Dose: 0.8 mg 58 year old gentleman with hx of CKD with proteinuria, CHF, CAD s/p PCI, Hypertension, hyperlipidemia who preesnted from home with LE swelling and sob and admitted for CHF exacerbation with Cr of 2.4-2.6. #CHF exacerbation #GABI w/o clear etiology #Proteinuria #CAD #HLD pt will require [facility] for worsening renal function with uremia and volume overload will plan for first dialysis to be done tomorrow will consutl vascular for temporary dialysis access placement will defer Biopsy to Friday or Friday Prior Serologic work up has been negative s/p 1 unit PRBC transfusion will give Lasix 200mg IVPB today as pt has very little urine output CXR shows bilatral central congestion, appears unchanged. Official read is pending Dose all meds for CrCl < 10 Thank you Mansoor Quiroz DO
[2018-11-08] MEDS ORDERED: SODIUM CHLORIDE 250 ML IV PRN (10:15)
--- NOTE | 2018-11-08 10:52 | PN ---
Progress Note, Physician History of Present Illness: (+) coughing this AM Breathing unchanged Tele: NSR 80s - Current Medication List Current Medications: Active Medications Acetaminophen (Tylenol -) 650 mg PO Q6H PRN PRN Reason: PAIN LEVEL 1-5 Last Admin: 11/05/18 22:30 Dose: 650 mg Epoetin [place] (Procrit -) 20,000 unit IVPUSH ONCE ONE Stop: 11/09/18 09:01 Ergocalciferol (Drisdol -) 50,000 unit PO Mo [facility] BEDS [facility] Last Admin: 11/02/18 11:58 Dose: 50,000 unit Finasteride (Proscar -) 5 mg PO DAILY [facility]S [facility] Last Admin: 11/08/18 10:03 Dose: 5 mg Guaifenesin (Diabetic Tussin Dm -) 5 ml PO Q6H PRN PRN Reason: COUGH Last Admin: 11/06/18 06:29 Dose: 5 ml Hydralazine HCl (Apresoline -) 50 mg PO TID [facility]S [facility] Last Admin: 11/08/18 07:11 Dose: 50 mg Furosemide 100 mg/ Dextrose 50 mls @ 7.5 mls/hr IVPB TITR [facility]S [facility]; Protocol Last Admin: 11/05/18 17:20 Dose: 15 mg/hr, 7.5 mls/hr Cefepime HCl 2 gm/ Dextrose 100 mls @ 200 mls/hr IVPB DAILY [facility] 234 BEDS [facility]; Protocol Last Admin: 11/08/18 10:04 Dose: 200 mls/hr Sodium Chloride (Normal Saline -) 250 mls @ 3,000 mls/hr IV PRN PRN PRN Reason: Hypotension during Dialysis Stop: 11/09/18 10:15 Insulin Aspart (Novolog Vial Sliding Scale -) 1 vial SQ TIDAC [facility]S [facility]; Protocol Last Admin: 11/08/18 07:11 Dose: Not Given Isosorbide Mononitrate (Imdur -) 30 mg PO DAILY [facility]S [facility] Last Admin: 11/08/18 10:03 Dose: 30 mg Labetalol HCl (Normodyne -) 300 mg PO BID [facility]S [facility] Last Admin: 11/08/18 10:03 Dose: 300 mg Ranolazine (Ranexa -) 500 mg PO BID [facility] Last Admin: 11/08/18 10:03 Dose: 500 mg Tamsulosin HCl (Flomax -) 0.8 mg PO DAILY@0830 [facility] 234 [facility]S [facility] Last Admin: 11/08/18 09:03 Dose: 0.8 mg - Objective Vital Signs: Vital Signs Temperature 98.0 F 11/08/18 06:40 Pulse Rate 74 11/08/18 06:40 Respiratory Rate 20 11/08/18 06:40 Blood Pressure 143/74 11/08/18 06:40 O2 Sat by Pulse Oximetry (%) 98 11/07/18 20:15 Constitutional: Yes: No Distress, Calm Cardiovascular: Yes: Regular Rate and Rhythm Respiratory: Yes: Poor Air Entry, Wheezes Extremities: Yes: WNL Edema: RUE: 3+, LLE: 3+ Labs: CBC, BMP 11/08/18 05:30 11/08/18 05:30 INR, PTT INR 1.27 (0.83-1.09) H 10/26/18 09:50 Assessment/Plan 1. Acute systolic HF exacerbation: - EF 40-45% - cont labetolol, not on ACEI/ARB for CKD - continue hydralzine and imdur. BP is controlled. - Hypoalbuminemia may also be contributing to edema 2. CKD - Cr 2.4 on admission, rising now 6.8 and rising (k 4.9). - renal following - holding aspirin and plavix for kidney bx - Would push toards HD initiation for further volume removal and worsening renal function. 3. CAD: - s/p FER most recently 09/2017, 10/2017 - on aspirin and plavix, holding for planned kidney bx 4. HTN: - stable, continue home meds
--- NOTE | 2018-11-08 12:24 | PN ---
Progress Note, Physician Chief Complaint: Mr Prater says he feels blessed. Will not give me further subjective. - Current Medication List Current Medications: Active Medications Acetaminophen (Tylenol -) 650 mg PO Q6H PRN PRN Reason: PAIN LEVEL 1-5 Last Admin: 11/05/18 22:30 Dose: 650 mg Epoetin Uche (Procrit -) 20,000 unit IVPUSH ONCE ONE Stop: 11/09/18 09:01 Ergocalciferol (Drisdol -) 50,000 unit PO Mo [facility] Last Admin: 11/02/18 11:58 Dose: 50,000 unit Finasteride (Proscar -) 5 mg PO DAILY [facility] Last Admin: 11/08/18 10:03 Dose: 5 mg Guaifenesin (Diabetic Tussin Dm -) 5 ml PO Q6H PRN PRN Reason: COUGH Last Admin: 11/06/18 06:29 Dose: 5 ml Hydralazine HCl (Apresoline -) 50 mg PO TID [facility] Last Admin: 11/08/18 07:11 Dose: 50 mg Furosemide 100 mg/ Dextrose 50 mls @ 7.5 mls/hr IVPB TITR [facility]; Protocol Last Admin: 11/05/18 17:20 Dose: 15 mg/hr, 7.5 mls/hr Cefepime HCl 2 gm/ Dextrose 100 mls @ 200 mls/hr IVPB DAILY [facility]; Protocol Last Admin: 11/08/18 10:04 Dose: 200 mls/hr Sodium Chloride (Normal Saline -) 250 mls @ 3,000 mls/hr IV PRN PRN PRN Reason: Hypotension during Dialysis Stop: 11/09/18 10:15 Insulin Aspart (Novolog Vial Sliding Scale -) 1 vial SQ TIDAC [facility]; Protocol Last Admin: 11/08/18 12:03 Dose: Not Given Isosorbide Mononitrate (Imdur -) 30 mg PO DAILY [facility] Last Admin: 11/08/18 10:03 Dose: 30 mg Labetalol HCl (Normodyne -) 300 mg PO BID [facility] Last Admin: 11/08/18 10:03 Dose: 300 mg Ranolazine (Ranexa -) 500 mg PO BID [facility] Last Admin: 11/08/18 10:03 Dose: 500 mg Tamsulosin HCl (Flomax -) 0.8 mg PO DAILY@0830 [facility] Last Admin: 11/08/18 09:03 Dose: 0.8 mg - Objective Vital Signs: Vital Signs Temperature 37.5 C 11/08/18 10:00 Pulse Rate 75 11/08/18 10:00 Respiratory Rate 20 11/08/18 10:00 Blood Pressure 166/77 11/08/18 10:00 O2 Sat by Pulse Oximetry (%) 98 11/08/18 09:00 Constitutional: Yes: No Distress, Calm, Obese Cardiovascular: Yes: Regular Rate and Rhythm. No: Gallop, Murmur, Rub Respiratory: Yes: Regular, Rhonchi. No: Rales, Wheezes Gastrointestinal: Yes: Normal Bowel Sounds, Soft. No: Distention, Tenderness Extremities: Yes: WNL Edema: Yes Edema: LLE: 3+, RLE: 3+ Labs: CBC, BMP 11/08/18 05:30 11/08/18 05:30 INR, PTT INR 1.27 (0.83-1.09) H 10/26/18 09:50 Problem List - Problems (1) CHF (congestive heart failure) Code(s): I50.9 - HEART FAILURE, UNSPECIFIED Qualifiers: Heart failure type: systolic Heart failure chronicity: acute on chronic Qualified Code(s): I50.23 - Acute on chronic systolic (congestive) heart failure (2) GABI (acute kidney injury) Code(s): N17.9 - ACUTE KIDNEY FAILURE, UNSPECIFIED (3) CKD (chronic kidney disease) stage 4, GFR 15-29 ml/min Code(s): N18.4 - CHRONIC KIDNEY DISEASE, STAGE 4 (SEVERE) (4) Sepsis Code(s): A41.9 - SEPSIS, UNSPECIFIED ORGANISM (5) Insulin dependent diabetes mellitus Code(s): E11.9 - TYPE 2 DIABETES MELLITUS WITHOUT COMPLICATIONS; Z79.4 - NURSING HOME (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 OF INSULIN (6) UTI (urinary tract infection) Code(s): N39.0 - URINARY TRACT INFECTION, SITE NOT SPECIFIED Qualifiers: Urinary tract infection type: acute cystitis Hematuria presence: without hematuria Qualified Code(s): N30.00 - Acute cystitis without hematuria Assessment/Plan (1) CHF (congestive heart failure) Assessment/Plan: -chest x-ray remains fluid overloaded -minimal diuresis with lasix 100mg IV x1 yesterday -to give lasix 200mg IV today -planning for HD tomorrow Code(s): I50.9 - HEART FAILURE, UNSPECIFIED Qualifiers: Heart failure type: systolic Heart failure chronicity: acute on chronic Qualified Code(s): I50.23 - Acute on chronic systolic (congestive) heart failure (2) GABI (acute kidney injury) Assessment/Plan -HD tomorrow -biopsy on Friday Code(s): N17.9 - ACUTE KIDNEY FAILURE, UNSPECIFIED (3) CKD (chronic kidney disease) stage 4, GFR 15-29 ml/min Assessment/Plan: -worsening -nephrology following -planning for HD Code(s): N18.4 - CHRONIC KIDNEY DISEASE, STAGE 4 (SEVERE) (4) Sepsis secondary to UTI Assessment/Plan: -urine and blood culture positive -blood cultures growing e coli -urine cultures growing e coli and GBS -continue cefepime per ID recommendations Code(s): A41.9 - SEPSIS, UNSPECIFIED ORGANISM (5) Insulin dependent diabetes mellitus Assessment/Plan: -continue diabetic diet and insulin Code(s): E11.9 - TYPE 2 DIABETES MELLITUS WITHOUT COMPLICATIONS; Z79.4 - NURSING HOME (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 OF INSULIN (6) Anemia of chronic disease -improved with 1 unit
[2018-11-08 12:40] LABS: ANISOCYTOSIS 0; MACROCYTOSIS 1+; OVALOCYTE 1+; PLATELET ESTIMATE NORMAL
--- NOTE | 2018-11-08 14:50 | PN ---
Progress Note (short form) - Note Progress Note: haider placed 5/2 minimal urine output no complaints Vital Signs Period Temp Pulse Resp BP Sys/Lopez Pulse Ox Last 24 Hr 97.6 F-99.5 F 66-75 20-20 130-166/65-77 98-98 cor-rrr lungs scattered rhonchi abd soft,nt ext +edema +haider CBC, BMP 11/08/18 05:30 11/08/18 05:30 Microbiology 11/04/18 13:00 Blood - Peripheral Venous Blood Culture - Preliminary NO GROWTH OBTAINED AFTER 96 HOURS, INCUBATION TO CONTINUE FOR 1 DAYS. 11/07/18 07:35 Blood - Peripheral Venous Blood Culture - Preliminary NO GROWTH OBTAINED AFTER 24 HOURS, INCUBATION TO CONTINUE FOR 4 DAYS. 11/07/18 08:00 Blood - Peripheral Venous Blood Culture - Preliminary NO GROWTH OBTAINED AFTER 24 HOURS, INCUBATION TO CONTINUE FOR 4 DAYS. 11/05/18 04:10 Urine - Urine - Catheterized Urine Culture - Final Escherichia Coli Strep Agalactiae Group B 11/04/18 12:53 Blood - Peripheral Venous Blood Culture - Final Escherichia Coli Current Medications Acetaminophen (Tylenol -) 650 mg PO Q6H PRN PRN Reason: PAIN LEVEL 1-5 Last Admin: 11/05/18 22:30 Dose: 650 mg Epoetin Uche (Procrit -) 20,000 unit IVPUSH ONCE ONE Stop: 11/09/18 09:01 Ergocalciferol (Drisdol -) 50,000 unit PO Mo [facility] Last Admin: 11/02/18 11:58 Dose: 50,000 unit Finasteride (Proscar -) 5 mg PO DAILY [facility] Last Admin: 11/08/18 10:03 Dose: 5 mg Guaifenesin (Diabetic Tussin Dm -) 5 ml PO Q6H PRN PRN Reason: COUGH Last Admin: 11/06/18 06:29 Dose: 5 ml Hydralazine HCl (Apresoline -) 50 mg PO TID [facility] Last Admin: 11/08/18 14:13 Dose: 50 mg Furosemide 100 mg/ Dextrose 50 mls @ 7.5 mls/hr IVPB TITR [facility]; Protocol Last Admin: 11/05/18 17:20 Dose: 15 mg/hr, 7.5 mls/hr Cefepime HCl 2 gm/ Dextrose 100 mls @ 200 mls/hr IVPB DAILY [facility]; Protocol Last Admin: 11/08/18 10:04 Dose: 200 mls/hr Sodium Chloride (Normal Saline -) 250 mls @ 3,000 mls/hr IV PRN PRN PRN Reason: Hypotension during Dialysis Stop: 11/09/18 10:15 Insulin Aspart (Novolog Vial Sliding Scale -) 1 vial SQ TIDAC [facility]; Protocol Last Admin: 11/08/18 12:03 Dose: Not Given Isosorbide Mononitrate (Imdur -) 30 mg PO DAILY [facility] Last Admin: 11/08/18 10:03 Dose: 30 mg Labetalol HCl (Normodyne -) 300 mg PO BID [facility] Last Admin: 11/08/18 10:03 Dose: 300 mg Ranolazine (Ranexa -) 500 mg PO BID [facility] Last Admin: 11/08/18 10:03 Dose: 500 mg Tamsulosin HCl (Flomax -) 0.8 mg PO DAILY@0830 [facility] Last Admin: 11/08/18 09:03 Dose: 0.8 mg a/p gram negative bacteremia secondary to UTI-E coli- will switch to rocephin worsening renal function-for HD in am history of CHF type 2 DM
[2018-11-08] MEDS: guaiFENesin/D-M SUGAR-FREE/ACLHOL-FREE 118 ML BOTTLE PO PRN (23:16)
[2018-11-09] MEDS: INSULIN SLIDING SCALE (NOVOLOG) 1 VIAL SQ SCH ×3 (06:16→18:00)
[2018-11-09] MEDS: hydrALAZINE HCL 50 MG TABLET (FP) PO SCH ×3 (06:17→21:37)
[2018-11-09 07:01] LABS: ANION GAP 10 MMOL/L (8-16); CALCIUM 8.1 mg/dL (8.5-10.1); CHLORIDE 100 mmol/L (98-107); CO2 22 mmol/L (21-32); CREATININE 6.3 mg/dL (0.55-1.3); GLUCOSE,RANDOM 114 mg/dL (74-106); MAGNESIUM 2.5 mg/dL (1.8-2.4); PHOSPHOROUS 5.4 mg/dL (2.5-4.9); POTASSIUM 4.6 mmol/L (3.5-5.1); SODIUM 132 mmol/L (136-145)
[2018-11-09 07:40] LABS: BLOOD UREA NITROGEN 149 mg/dL (7-18)
--- NOTE | 2018-11-09 08:50 | PN ---
Progress Note, Physician Chief Complaint: events of weekend noted. HD catheter placed this AM HD planned. He denies CP. Denies SOB, weight is up. History of Present Illness: TELE: NSR. - Current Medication List Current Medications: Active Medications Acetaminophen (Tylenol -) 650 mg PO Q6H PRN PRN Reason: PAIN LEVEL 1-5 Last Admin: 11/05/18 22:30 Dose: 650 mg Epoetin Uche (Procrit -) 20,000 unit IVPUSH ONCE ONE Stop: 11/09/18 09:01 Ergocalciferol (Drisdol -) 50,000 unit PO Mo [facility] Last Admin: 11/02/18 11:58 Dose: 50,000 unit Finasteride (Proscar -) 5 mg PO DAILY [facility] Last Admin: 11/08/18 10:03 Dose: 5 mg Guaifenesin (Diabetic Tussin Dm -) 5 ml PO Q6H PRN PRN Reason: COUGH Last Admin: 11/08/18 23:16 Dose: 5 ml Hydralazine HCl (Apresoline -) 50 mg PO TID [facility] Last Admin: 11/09/18 06:17 Dose: 50 mg Furosemide 100 mg/ Dextrose 50 mls @ 7.5 mls/hr IVPB TITR [facility]; Protocol Last Admin: 11/05/18 17:20 Dose: 15 mg/hr, 7.5 mls/hr Sodium Chloride (Normal Saline -) 250 mls @ 3,000 mls/hr IV PRN PRN PRN Reason: Hypotension during Dialysis Stop: 11/09/18 10:15 Ceftriaxone Sodium 1 gm/ (Dextrose) 50 mls @ 100 mls/hr IVPB DAILY [facility]; Protocol Insulin Aspart (Novolog Vial Sliding Scale -) 1 vial SQ TIDAC [facility]; Protocol Last Admin: 11/09/18 06:16 Dose: Not Given Isosorbide Mononitrate (Imdur -) 30 mg PO DAILY [facility] Last Admin: 11/08/18 10:03 Dose: 30 mg Labetalol HCl (Normodyne -) 300 mg PO BID [facility] Last Admin: 11/08/18 21:17 Dose: 300 mg Ranolazine (Ranexa -) 500 mg PO BID [facility] Last Admin: 11/08/18 21:17 Dose: 500 mg Tamsulosin HCl (Flomax -) 0.8 mg PO DAILY@0830 [facility] Last Admin: 11/08/18 09:03 Dose: 0.8 mg - Objective Vital Signs: Vital Signs Temperature 98.4 F 11/09/18 05:13 Pulse Rate 73 11/09/18 05:13 Respiratory Rate 18 11/09/18 05:13 Blood Pressure 152/78 11/09/18 05:13 O2 Sat by Pulse Oximetry (%) 98 11/08/18 21:00 Constitutional: Yes: No Distress Cardiovascular: Yes: Regular Rate and Rhythm Respiratory: Yes: Other (decreased breath sounds at bases. No active wheezing.) Gastrointestinal: Yes: Soft, Abdomen, Obese Edema: Yes Edema: LLE: 3+, RLE: 3+ Neurological: Yes: Alert, Oriented Labs: CBC, BMP 11/08/18 05:30 11/09/18 05:30 INR, PTT INR 1.27 (0.83-1.09) H 10/26/18 09:50 Laboratory Tests 11/08/18 11/09/18 05:30 05:30 WBC 10.7 H Hgb 7.3 L Hct 21.9 L Plt Count 328 Sodium 132 L Potassium 4.6 BUN 149 H* Creatinine 6.3 H Random Glucose 114 H Calcium 8.1 L Phosphorus 5.4 H Magnesium 2.5 H - ....Imaging EKG: Image Reviewed (NSR) Assessment/Plan Assessment/Plan 1. Acute systolic HF exacerbation: - EF 40-45% - cont labetolol, not on ACEI/ARB for CKD - continue hydralzine and imdur. - Hypoalbuminemia may also be contributing to edema 2. CKD - Cr 2.4 on admission, rising now - renal following - holding aspirin and plavix for kidney bx -Planned for HD 3. CAD: - s/p FER most recently 09/2017, 10/2017 - on aspirin and plavix, holding for planned kidney bx 4. HTN: - stable, continue home meds
[2018-11-09] MEDS ORDERED: EPOETIN ALFA 20,000 UNIT/1 ML VIAL IVPUSH ONE ×2 (09:00→15:30)
--- NOTE | 2018-11-09 09:14 | PROC ---
Central Line Insertion - Procedure Note TIME OUT performed prior to this procedure with verbal confirmation of correct patient identity, correct side, agreement of the procedure, correct patient position, availability of necessary equipment. The consent form is complete and accurate. Risk of possible infection, bleeding and pneumothorax have been discussed with the patient. Safety precautions based on patient history or medication use has been addressed. Indication: Other (Renal failure) Central Line: Dialysis Cath, Dual Lumen Position: Supine Area prepped with Chlorhexidine solution then draped using sterile barrier protection. Anesthesia: Lidocaine 1% Technique used: Seldinger Ultrasound Guided Assistance: Yes Site: Right Internal Jugular Dark venous non-pulsatile flow noted from hub of needle. The catheter was introduced. Guide wire removed intact. Each port aspirated then flushed with sterile normal saline, heparin locked and capped. Line secured to skin with silk suture. Biopatch placed around base of line. Sterile occlusive dressing applied. No complications. Patient tolerated the procedure well. STAT chest xray ordered to confirm position and rule out pneumothorax CXR confirm correct placement of central catheter
[2018-11-09] MEDS ORDERED: cefTRIAXone SODIUM 1 GM VIAL ONE (09:56)
[2018-11-09] MEDS ORDERED: DEXTROSE 5%-WATER - 50 ML IVPB ONE (09:56)
[2018-11-09] MEDS: CEFTRIAXONE 1 GM in DEXTROSE 5%-WATER - 50 ML IVPB SCH (10:32)
[2018-11-09] MEDS: RANOLAZINE E.R. 500 MG TABLET (FP) PO SCH ×2 (10:32→21:37)
[2018-11-09] MEDS: ISOSORBIDE MONONITRATE 30 MG TAB.SR.24H (FP) PO SCH (10:32)
[2018-11-09] MEDS: TAMSULOSIN HCL 0.4 MG CAP PO SCH (10:32)
[2018-11-09] MEDS: LABETALOL HCL 100 MG TABLET (FP) PO SCH ×2 (10:32→21:38)
[2018-11-09] MEDS: FINASTERIDE 5 MG TABLET (FP) PO SCH (10:32)
--- NOTE | 2018-11-09 10:48 | PN ---
Progress Note, Physician Chief Complaint: Mr Prater says he feels fine today. Denies cp, sob, n/v. - Current Medication List Current Medications: Active Medications Acetaminophen (Tylenol -) 650 mg PO Q6H PRN PRN Reason: PAIN LEVEL 1-5 Last Admin: 11/05/18 22:30 Dose: 650 mg Epoetin Uche (Procrit -) 20,000 unit IVPUSH ONCE ONE Stop: 11/09/18 09:01 Ergocalciferol (Drisdol -) 50,000 unit PO Mo [facility] Last Admin: 11/02/18 11:58 Dose: 50,000 unit Finasteride (Proscar -) 5 mg PO DAILY [facility] Last Admin: 11/09/18 10:32 Dose: 5 mg Guaifenesin (Diabetic Tussin Dm -) 5 ml PO Q6H PRN PRN Reason: COUGH Last Admin: 11/08/18 23:16 Dose: 5 ml Hydralazine HCl (Apresoline -) 50 mg PO TID [facility] Last Admin: 11/09/18 06:17 Dose: 50 mg Furosemide 100 mg/ Dextrose 50 mls @ 7.5 mls/hr IVPB TITR [facility]; Protocol Last Admin: 11/05/18 17:20 Dose: 15 mg/hr, 7.5 mls/hr Sodium Chloride (Normal Saline -) 250 mls @ 3,000 mls/hr IV PRN PRN PRN Reason: Hypotension during Dialysis Stop: 11/09/18 10:15 Ceftriaxone Sodium 1 gm/ (Dextrose) 50 mls @ 100 mls/hr IVPB DAILY [facility]; Protocol Last Admin: 11/09/18 10:32 Dose: 100 mls/hr Insulin Aspart (Novolog Vial Sliding Scale -) 1 vial SQ TIDAC [facility]; Protocol Last Admin: 11/09/18 06:16 Dose: Not Given Isosorbide Mononitrate (Imdur -) 30 mg PO DAILY [facility] Last Admin: 11/09/18 10:32 Dose: 30 mg Labetalol HCl (Normodyne -) 300 mg PO BID [facility] Last Admin: 11/09/18 10:32 Dose: 300 mg Ranolazine (Ranexa -) 500 mg PO BID [facility] Last Admin: 11/09/18 10:32 Dose: 500 mg Tamsulosin HCl (Flomax -) 0.8 mg PO DAILY@0830 [facility] Last Admin: 11/09/18 10:32 Dose: 0.8 mg - Objective Vital Signs: Vital Signs Temperature 37.5 C 11/09/18 09:00 Pulse Rate 75 11/09/18 09:00 Respiratory Rate 18 11/09/18 09:00 Blood Pressure 170/76 11/09/18 09:00 O2 Sat by Pulse Oximetry (%) 98 11/09/18 09:00 Constitutional: Yes: No Distress, Calm, Obese Cardiovascular: Yes: Regular Rate and Rhythm. No: Gallop, Murmur, Rub Respiratory: Yes: Regular, Cough, On Nasal O2, Rhonchi. No: CTA Bilaterally, Rales, Wheezes Gastrointestinal: Yes: Normal Bowel Sounds, Soft. No: Distention, Tenderness Extremities: Yes: WNL Edema: Yes Edema: LLE: 3+, RLE: 3+ Labs: CBC, BMP 11/08/18 05:30 11/09/18 05:30 INR, PTT INR 1.27 (0.83-1.09) H 10/26/18 09:50 Problem List - Problems (1) CHF (congestive heart failure) Code(s): I50.9 - HEART FAILURE, UNSPECIFIED Qualifiers: Heart failure type: systolic Heart failure chronicity: acute on chronic Qualified Code(s): I50.23 - Acute on chronic systolic (congestive) heart failure (2) GABI (acute kidney injury) Code(s): N17.9 - ACUTE KIDNEY FAILURE, UNSPECIFIED (3) CKD (chronic kidney disease) stage 4, GFR 15-29 ml/min Code(s): N18.4 - CHRONIC KIDNEY DISEASE, STAGE 4 (SEVERE) (4) Sepsis Code(s): A41.9 - SEPSIS, UNSPECIFIED ORGANISM (5) Insulin dependent diabetes mellitus Code(s): E11.9 - TYPE 2 DIABETES MELLITUS WITHOUT COMPLICATIONS; Z79.4 - CUSTODIAL (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 OF INSULIN (6) UTI (urinary tract infection) Code(s): N39.0 - URINARY TRACT INFECTION, SITE NOT SPECIFIED Qualifiers: Urinary tract infection type: acute cystitis Hematuria presence: without hematuria Qualified Code(s): N30.00 - Acute cystitis without hematuria Assessment/Plan (1) CHF (congestive heart failure) Assessment/Plan: -case d/w cardiology -HD today to remove fluid Code(s): I50.9 - HEART FAILURE, UNSPECIFIED Qualifiers: Heart failure type: systolic Heart failure chronicity: acute on chronic Qualified Code(s): I50.23 - Acute on chronic systolic (congestive) heart failure (2) GABI (acute kidney injury) Assessment/Plan -HD today -biopsy on Friday Code(s): N17.9 - ACUTE KIDNEY FAILURE, UNSPECIFIED (3) CKD (chronic kidney disease) stage 4, GFR 15-29 ml/min Assessment/Plan: -worsening -nephrology following -planning for HD today Code(s): N18.4 - CHRONIC KIDNEY DISEASE, STAGE 4 (SEVERE) (4) Sepsis secondary to UTI Assessment/Plan: -ID note reviewed -cefepime changed to rocephin Code(s): A41.9 - SEPSIS, UNSPECIFIED ORGANISM (5) Insulin dependent diabetes mellitus Assessment/Plan: -continue diabetic diet and insulin Code(s): E11.9 - TYPE 2 DIABETES MELLITUS WITHOUT COMPLICATIONS; Z79.4 - PATIENT MONITOR (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 OF INSULIN (6) Anemia of chronic disease -s/p 1 unit
[2018-11-09] MEDS: ERGOCALCIFEROL (VITAMIN D2) 50,000 UNIT CAPSULE (FP) PO SCH (12:00)
--- NOTE | 2018-11-09 12:03 | PN ---
Progress Note, Physician History of Present Illness: AWAKE, LETHARGIC SUPINE IN BED OFFERS NO COMPLAINTS AFEBRILE WBC 10.7 BC, URINE C/S ECOLI - Current Medication List Current Medications: Active Medications Acetaminophen (Tylenol -) 650 mg PO Q6H PRN PRN Reason: PAIN LEVEL 1-5 Last Admin: 11/05/18 22:30 Dose: 650 mg Epoetin Uche (Procrit -) 20,000 unit IVPUSH ONCE ONE Stop: 11/09/18 09:01 Ergocalciferol (Drisdol -) 50,000 unit PO Mo [facility] Last Admin: 11/02/18 11:58 Dose: 50,000 unit Finasteride (Proscar -) 5 mg PO DAILY [facility] Last Admin: 11/09/18 10:32 Dose: 5 mg Guaifenesin (Diabetic Tussin Dm -) 5 ml PO Q6H PRN PRN Reason: COUGH Last Admin: 11/08/18 23:16 Dose: 5 ml Hydralazine HCl (Apresoline -) 50 mg PO TID [facility] Last Admin: 11/09/18 06:17 Dose: 50 mg Furosemide 100 mg/ Dextrose 50 mls @ 7.5 mls/hr IVPB TITR [facility]; Protocol Last Admin: 11/05/18 17:20 Dose: 15 mg/hr, 7.5 mls/hr Sodium Chloride (Normal Saline -) 250 mls @ 3,000 mls/hr IV PRN PRN PRN Reason: Hypotension during Dialysis Stop: 11/09/18 10:15 Ceftriaxone Sodium 1 gm/ (Dextrose) 50 mls @ 100 mls/hr IVPB DAILY [facility]; Protocol Last Admin: 11/09/18 10:32 Dose: 100 mls/hr Insulin Aspart (Novolog Vial Sliding Scale -) 1 vial SQ TIDAC [facility]; Protocol Last Admin: 11/09/18 06:16 Dose: Not Given Isosorbide Mononitrate (Imdur -) 30 mg PO DAILY [facility] Last Admin: 11/09/18 10:32 Dose: 30 mg Labetalol HCl (Normodyne -) 300 mg PO BID [facility] Last Admin: 11/09/18 10:32 Dose: 300 mg Ranolazine (Ranexa -) 500 mg PO BID [facility] Last Admin: 11/09/18 10:32 Dose: 500 mg Tamsulosin HCl (Flomax -) 0.8 mg PO DAILY@0830 [facility] Last Admin: 11/09/18 10:32 Dose: 0.8 mg - Objective Vital Signs: Vital Signs Temperature 99.5 F 11/09/18 10:00 Pulse Rate 75 11/09/18 10:00 Respiratory Rate 18 11/09/18 10:00 Blood Pressure 170/76 11/09/18 10:00 O2 Sat by Pulse Oximetry (%) 98 11/09/18 09:00 Constitutional: Yes: No Distress Eyes: Yes: Conjunctiva Clear Cardiovascular: Yes: Regular Rate and Rhythm, S1, S2 Respiratory: Yes: Diminished Gastrointestinal: Yes: Normal Bowel Sounds, Soft. No: Tenderness Extremities: Yes: Other (DECREASED EDEMA LE BILATERALLY, DRY PRESSURE WOUND R HEEL) Edema: Yes Labs: CBC, BMP 11/08/18 05:30 11/09/18 05:30 INR, PTT INR 1.27 (0.83-1.09) H 10/26/18 09:50 Assessment/Plan GRAM NEGATIVE BACTEREMIA/ SEPSIS UTI/ SEPSIS SECONDARY TO UTI RENAL FAILURE HX URINARY RETENTION CONTINUE CEFTRIAXONE DAY# 5 IV ANTIBIOTICS
[2018-11-09] MEDS ORDERED: SODIUM CHLORIDE 250 ML IV PRN ×2 (15:19→15:44)
--- NOTE | 2018-11-09 15:44 | PN ---
Progress Note (short form) - Note Progress Note: Renal follow up for CKD Pt seen and examined at the bedside awake and alert feels fatigued at the bedside no sob, cough, cp, abd pain, N/V/D not making much urine Vital Signs Temperature 98.5 F 11/09/18 14:00 Pulse Rate 78 11/09/18 15:00 Respiratory Rate 18 11/09/18 15:00 Blood Pressure 172/88 H 11/09/18 15:00 O2 Sat by Pulse Oximetry (%) 98 11/09/18 09:00 Intake & Output 11/06/18 11/07/18 11/08/18 11/09/18 23:59 23:59 23:59 23:59 Intake Total 550 270 120 Output Total 547 473 4147 Balance 350 70 -1380 Weight 137.711 kg 137.257 kg NAD RRR, no M/R Dec BS at lung bases, no rales soft obese, NT/ND + upper extremity edema ++ bilateral LE edema CBC, BMP 11/08/18 05:30 11/09/18 05:30 Current Medications Acetaminophen (Tylenol -) 650 mg PO Q6H PRN PRN Reason: PAIN LEVEL 1-5 Last Admin: 11/05/18 22:30 Dose: 650 mg Ergocalciferol (Drisdol -) 50,000 unit PO Mo [facility] Last Admin: 11/02/18 11:58 Dose: 50,000 unit Finasteride (Proscar -) 5 mg PO DAILY [facility] Last Admin: 11/09/18 10:32 Dose: 5 mg Guaifenesin (Diabetic Tussin Dm -) 5 ml PO Q6H PRN PRN Reason: COUGH Last Admin: 11/08/18 23:16 Dose: 5 ml Hydralazine HCl (Apresoline -) 50 mg PO TID [facility] Last Admin: 11/09/18 06:17 Dose: 50 mg Furosemide 100 mg/ Dextrose 50 mls @ 7.5 mls/hr IVPB TITR [facility]; Protocol Last Admin: 11/05/18 17:20 Dose: 15 mg/hr, 7.5 mls/hr Ceftriaxone Sodium 1 gm/ (Dextrose) 50 mls @ 100 mls/hr IVPB DAILY [facility]; Protocol Last Admin: 11/09/18 10:32 Dose: 100 mls/hr Sodium Chloride (Normal Saline -) 250 mls @ 3,000 mls/hr IV PRN PRN PRN Reason: Hypotension during Dialysis Insulin Aspart (Novolog Vial Sliding Scale -) 1 vial SQ TIDAC [facility]; Protocol Last Admin: 11/09/18 12:57 Dose: Not Given Isosorbide Mononitrate (Imdur -) 30 mg PO DAILY [facility] Last Admin: 11/09/18 10:32 Dose: 30 mg Labetalol HCl (Normodyne -) 300 mg PO BID [facility] Last Admin: 11/09/18 10:32 Dose: 300 mg Ranolazine (Ranexa -) 500 mg PO BID [facility] Last Admin: 11/09/18 10:32 Dose: 500 mg Tamsulosin HCl (Flomax -) 0.8 mg PO DAILY@0830 [facility] Last Admin: 11/09/18 10:32 Dose: 0.8 mg 58 year old gentleman with hx of CKD with proteinuria, CHF, CAD s/p PCI, Hypertension, hyperlipidemia who preesnted from home with LE swelling and sob and admitted for CHF exacerbation with Cr of 2.4-2.6. #CHF exacerbation #GABI w/o clear etiology #Proteinuria #CAD #HLD Given worsening renal function and anuria pt will require [employer] [employer] Risks and benifits of dialysis discussed with patient and and both were agreeable to proceed. To have first session of dialysis/UF today s/p temporary HD catheter placement Renal biopsy to be performed tomorrow Prior Serologic work up has been negative s/p 1 unit PRBC transfusion will give RICHARD with HD Dose all meds for CrCl < 10 Thank you Mansoor Quiroz DO
[2018-11-09] MEDS: FUROSEMIDE INJECTION 100 MG in DEXTROSE 5%-WATER - 40 ML IVPB SCH (21:39)
[2018-11-10] MEDS: guaiFENesin/D-M SUGAR-FREE/ACLHOL-FREE 118 ML BOTTLE PO PRN (00:48)
[2018-11-10] MEDS ORDERED: MAG HYDROX/AL HYDROX/SIMETH 30 ML UNIT-DOSE CUP PO ONE (00:54)
[2018-11-10] MEDS: hydrALAZINE HCL 50 MG TABLET (FP) PO SCH ×3 (05:55→20:59)
[2018-11-10] MEDS: INSULIN SLIDING SCALE (NOVOLOG) 1 VIAL SQ SCH ×3 (06:02→17:25)
[2018-11-10 08:07] LABS: BASO % 0.4 % (0-2.0); EOS % 0.5 % (0-4.5); HEMATOCRIT 21.8 % (35.4-49); HEMOGLOBIN 7.2 GM/dL (11.7-16.9); LYMPH % 5.1 % (8-40); MCH 28.1 pg (25.7-33.7); MCHC 32.9 g/dl (32.0-35.9); MEAN CELL VOLUME 85.5 fl (80-96); MEAN PLT VOLUME 7.6 fl (7.5-11.1); MONO % 9.5 % (3.8-10.2); NEUT % 84.5 % (42.8-82.8); PLATELET COUNT 417 K/MM3 (134-434); RBC 2.55 M/mm3 (4.00-5.60); RDW 14.3 % (11.9-15.9)
[2018-11-10 08:37] LABS: ANION GAP 10 MMOL/L (8-16); CALCIUM 7.9 mg/dL (8.5-10.1); CHLORIDE 100 mmol/L (98-107); CO2 25 mmol/L (21-32); CREATININE 4.9 mg/dL (0.55-1.3); GLUCOSE,RANDOM 131 mg/dL (74-106); MAGNESIUM 2.4 mg/dL (1.8-2.4); PHOSPHOROUS 4.5 mg/dL (2.5-4.9); POTASSIUM 4.2 mmol/L (3.5-5.1); SODIUM 135 mmol/L (136-145)
[2018-11-10 08:51] LABS: BLOOD UREA NITROGEN 118 mg/dL (7-18)
[2018-11-10] MEDS ORDERED: DEXTROSE 5%-WATER - 50 ML IVPB ONE ×2 (10:05)
[2018-11-10] MEDS ORDERED: FUROSEMIDE 100 MG/10 ML INJECTABLE VIAL ONE (10:05)
[2018-11-10] MEDS ORDERED: cefTRIAXone SODIUM 1 GM VIAL ONE (10:05)
--- NOTE | 2018-11-10 11:23 | PN ---
Progress Note (short form) - Note Progress Note: s: no chest pain, palps, dyspnea TELE: NSR. Current Medications Acetaminophen (Tylenol -) 650 mg PO Q6H PRN PRN Reason: PAIN LEVEL 1-5 Last Admin: 11/05/18 22:30 Dose: 650 mg Ergocalciferol (Drisdol -) 50,000 unit PO Mo [facility] Last Admin: 11/09/18 12:00 Dose: 50,000 unit Finasteride (Proscar -) 5 mg PO DAILY [facility] Last Admin: 11/09/18 10:32 Dose: 5 mg Guaifenesin (Diabetic Tussin Dm -) 5 ml PO Q6H PRN PRN Reason: COUGH Last Admin: 11/10/18 00:48 Dose: 5 ml Hydralazine HCl (Apresoline -) 50 mg PO TID [facility] Last Admin: 11/10/18 05:55 Dose: 50 mg Furosemide 100 mg/ Dextrose 50 mls @ 7.5 mls/hr IVPB TITR [facility]; Protocol Last Admin: 11/09/18 21:39 Dose: 15 mg/hr, 7.5 mls/hr Ceftriaxone Sodium 1 gm/ (Dextrose) 50 mls @ 100 mls/hr IVPB DAILY [facility]; Protocol Last Admin: 11/09/18 10:32 Dose: 100 mls/hr Sodium Chloride (Normal Saline -) 250 mls @ 3,000 mls/hr IV PRN PRN PRN Reason: Hypotension during Dialysis Sodium Chloride (Normal Saline -) 250 mls @ 3,000 mls/hr IV PRN PRN PRN Reason: Hypotension during Dialysis Stop: 11/10/18 15:44 Insulin Aspart (Novolog Vial Sliding Scale -) 1 vial SQ TIDAC [facility]; Protocol Last Admin: 11/10/18 06:02 Dose: Not Given Isosorbide Mononitrate (Imdur -) 30 mg PO DAILY [facility] Last Admin: 11/09/18 10:32 Dose: 30 mg Labetalol HCl (Normodyne -) 300 mg PO BID [facility] Last Admin: 11/09/18 21:38 Dose: 300 mg Ranolazine (Ranexa -) 500 mg PO BID [facility] Last Admin: 11/09/18 21:37 Dose: 500 mg Tamsulosin HCl (Flomax -) 0.8 mg PO DAILY@0830 [facility] Last Admin: 11/09/18 10:32 Dose: 0.8 mg Vital Signs Period Temp Pulse Resp BP Sys/Lopez Pulse Ox Last 24 Hr 97.7 F-99.4 F 74-93 18-22 112-193/71-106 100 Constitutional: Yes: No Distress Cardiovascular: Yes: Regular Rate and Rhythm Respiratory: Yes: Other (decreased breath sounds at bases. No active wheezing.) Gastrointestinal: Yes: Soft, Abdomen, Obese Edema: Yes Edema: LLE: 2+, RLE: 2+ Neurological: Yes: Alert, Oriented no jaundice not agitated - ....Imaging EKG: Image Reviewed (NSR) Assessment/Plan Assessment/Plan 1. Acute systolic HF exacerbation: - EF 40-45% - cont labetolol, not on ACEI/ARB for CKD - continue hydralzine and imdur. - Hypoalbuminemia may also be contributing to edema - edema improving with HD, weight down, volume management per renal 2. CKD - renal following - holding aspirin and plavix for kidney bx - now receiving HD 3. CAD: - s/p FER most recently 09/2017, 10/2017 - on aspirin and plavix, holding for planned kidney bx 4. HTN: - monitor BP, increase hydralazine if remains elevated
[2018-11-10] MEDS: TAMSULOSIN HCL 0.4 MG CAP PO SCH (11:45)
[2018-11-10 11:57] LABS: ANISOCYTOSIS 1+; MACROCYTOSIS 0; PLATELET ESTIMATE NORMAL
[2018-11-10] MEDS: ISOSORBIDE MONONITRATE 30 MG TAB.SR.24H (FP) PO SCH (12:38)
[2018-11-10] MEDS: LABETALOL HCL 100 MG TABLET (FP) PO SCH ×2 (12:38→20:59)
[2018-11-10] MEDS: RANOLAZINE E.R. 500 MG TABLET (FP) PO SCH ×2 (12:39→20:59)
[2018-11-10] MEDS: FINASTERIDE 5 MG TABLET (FP) PO SCH (12:39)
[2018-11-10] MEDS: CEFTRIAXONE 1 GM in DEXTROSE 5%-WATER - 50 ML IVPB SCH (12:44)
[2018-11-10] MEDS: NIFEdipine E.R. 30 MG TABLET (FP) PO SCH (13:40)
--- NOTE | 2018-11-10 15:18 | PN ---
Progress Note (short form) - Note Progress Note: Renal follow up for CKD Pt seen and examined at the bedside awake and alert s/p dialysis this am, tolerated it well had first dialysis yesterday Vital Signs Temperature 98.2 F 11/10/18 07:10 Pulse Rate 80 11/10/18 11:34 Respiratory Rate 18 11/10/18 11:34 Blood Pressure 192/100 H 11/10/18 11:34 O2 Sat by Pulse Oximetry (%) 100 11/10/18 09:00 Intake & Output 11/07/18 11/08/18 11/09/18 11/10/18 23:59 23:59 23:59 23:59 Intake Total 270 120 200 315 Output Total 200 1500 1800 1200 Balance 70 -1380 -1600 -885 Weight 137.711 kg 137.257 kg 125.645 kg NAD RRR, no M/R Dec BS at lung bases, no rales soft obese, NT/ND + upper extremity edema ++ bilateral LE edema CBC, BMP 11/10/18 06:58 11/10/18 06:58 Current Medications Acetaminophen (Tylenol -) 650 mg PO Q6H PRN PRN Reason: PAIN LEVEL 1-5 Last Admin: 11/05/18 22:30 Dose: 650 mg Ergocalciferol (Drisdol -) 50,000 unit PO Mo [facility] Last Admin: 11/09/18 12:00 Dose: 50,000 unit Finasteride (Proscar -) 5 mg PO DAILY [facility] Last Admin: 11/10/18 12:39 Dose: 5 mg Guaifenesin (Diabetic Tussin Dm -) 5 ml PO Q6H PRN PRN Reason: COUGH Last Admin: 11/10/18 00:48 Dose: 5 ml Hydralazine HCl (Apresoline -) 50 mg PO TID [facility] Last Admin: 11/10/18 13:38 Dose: 50 mg Furosemide 100 mg/ Dextrose 50 mls @ 7.5 mls/hr IVPB TITR [facility]; Protocol Last Admin: 11/09/18 21:39 Dose: 15 mg/hr, 7.5 mls/hr Ceftriaxone Sodium 1 gm/ (Dextrose) 50 mls @ 100 mls/hr IVPB DAILY [facility]; Protocol Last Admin: 11/10/18 12:44 Dose: 100 mls/hr Sodium Chloride (Normal Saline -) 250 mls @ 3,000 mls/hr IV PRN PRN PRN Reason: Hypotension during Dialysis Sodium Chloride (Normal Saline -) 250 mls @ 3,000 mls/hr IV PRN PRN PRN Reason: Hypotension during Dialysis Stop: 11/10/18 15:44 Insulin Aspart (Novolog Vial Sliding Scale -) 1 vial SQ TIDAC [facility]; Protocol Last Admin: 11/10/18 12:00 Dose: Not Given Isosorbide Mononitrate (Imdur -) 30 mg PO DAILY [facility] Last Admin: 11/10/18 12:38 Dose: 30 mg Labetalol HCl (Normodyne -) 300 mg PO BID [facility] Last Admin: 11/10/18 12:38 Dose: 300 mg Nifedipine (Procardia Xl -) 30 mg PO DAILY [facility] Last Admin: 11/10/18 13:40 Dose: 30 mg Ranolazine (Ranexa -) 500 mg PO BID [facility] Last Admin: 11/10/18 12:39 Dose: 500 mg Tamsulosin HCl (Flomax -) 0.8 mg PO DAILY@0830 [facility] Last Admin: 11/10/18 11:45 Dose: 0.8 mg 58 year old gentleman with hx of CKD with proteinuria, CHF, CAD s/p PCI, Hypertension, hyperlipidemia who preesnted from home with LE swelling and sob and admitted for CHF exacerbation with Cr of 2.4-2.6. #CHF exacerbation #GABI w/o clear etiology #Proteinuria #CAD #HLD s/p 2 sessions of HD (yesterday and today) biopsy deferred to tomorrow per IR Prior Serologic work up has been negative will reaccess volume status tomorrow can d/c Delgado catheter continue Abx as per ID will continue RICHARD with HD Thank you Mansoor Quiroz DO
--- NOTE | 2018-11-10 16:31 | PN ---
Progress Note, Physician Chief Complaint: Mr Prater complains of feeling fatigue. Denies cp, sob, n/v. - Current Medication List Current Medications: Active Medications Acetaminophen (Tylenol -) 650 mg PO Q6H PRN PRN Reason: PAIN LEVEL 1-5 Last Admin: 11/05/18 22:30 Dose: 650 mg Ergocalciferol (Drisdol -) 50,000 unit PO Mo [facility] Last Admin: 11/09/18 12:00 Dose: 50,000 unit Finasteride (Proscar -) 5 mg PO DAILY [facility] Last Admin: 11/10/18 12:39 Dose: 5 mg Guaifenesin (Diabetic Tussin Dm -) 5 ml PO Q6H PRN PRN Reason: COUGH Last Admin: 11/10/18 00:48 Dose: 5 ml Hydralazine HCl (Apresoline -) 50 mg PO TID [facility] Last Admin: 11/10/18 13:38 Dose: 50 mg Furosemide 100 mg/ Dextrose 50 mls @ 7.5 mls/hr IVPB TITR [facility]; Protocol Last Admin: 11/09/18 21:39 Dose: 15 mg/hr, 7.5 mls/hr Ceftriaxone Sodium 1 gm/ (Dextrose) 50 mls @ 100 mls/hr IVPB DAILY [facility]; Protocol Last Admin: 11/10/18 12:44 Dose: 100 mls/hr Sodium Chloride (Normal Saline -) 250 mls @ 3,000 mls/hr IV PRN PRN PRN Reason: Hypotension during Dialysis Insulin Aspart (Novolog Vial Sliding Scale -) 1 vial SQ TIDAC [facility]; Protocol Last Admin: 11/10/18 12:00 Dose: Not Given Isosorbide Mononitrate (Imdur -) 30 mg PO DAILY [facility] Last Admin: 11/10/18 12:38 Dose: 30 mg Labetalol HCl (Normodyne -) 300 mg PO BID [facility] Last Admin: 11/10/18 12:38 Dose: 300 mg Nifedipine (Procardia Xl -) 30 mg PO DAILY [facility] Last Admin: 11/10/18 13:40 Dose: 30 mg Ranolazine (Ranexa -) 500 mg PO BID [facility] Last Admin: 11/10/18 12:39 Dose: 500 mg Tamsulosin HCl (Flomax -) 0.8 mg PO DAILY@0830 [facility] Last Admin: 11/10/18 11:45 Dose: 0.8 mg - Objective Vital Signs: Vital Signs Temperature 37.3 C 11/10/18 13:00 Pulse Rate 76 11/10/18 13:00 Respiratory Rate 20 11/10/18 13:00 Blood Pressure 136/65 11/10/18 13:00 O2 Sat by Pulse Oximetry (%) 100 11/10/18 09:00 Constitutional: Yes: No Distress, Calm, Obese Cardiovascular: Yes: Regular Rate and Rhythm. No: Gallop, Murmur, Rub Respiratory: Yes: Regular, On Nasal O2, Rhonchi. No: CTA Bilaterally, Rales, Wheezes Gastrointestinal: Yes: Normal Bowel Sounds, Soft. No: Distention, Tenderness Extremities: Yes: WNL Edema: Yes Edema: LLE: 2+, RLE: 2+ Labs: CBC, BMP 11/10/18 06:58 11/10/18 06:58 INR, PTT INR 1.27 (0.83-1.09) H 10/26/18 09:50 Problem List - Problems (1) CHF (congestive heart failure) Code(s): I50.9 - HEART FAILURE, UNSPECIFIED Qualifiers: Heart failure type: systolic Heart failure chronicity: acute on chronic Qualified Code(s): I50.23 - Acute on chronic systolic (congestive) heart failure (2) GABI (acute kidney injury) Code(s): N17.9 - ACUTE KIDNEY FAILURE, UNSPECIFIED (3) CKD (chronic kidney disease) stage 4, GFR 15-29 ml/min Code(s): N18.4 - CHRONIC KIDNEY DISEASE, STAGE 4 (SEVERE) (4) Sepsis Code(s): A41.9 - SEPSIS, UNSPECIFIED ORGANISM (5) Insulin dependent diabetes mellitus Code(s): E11.9 - TYPE 2 DIABETES MELLITUS WITHOUT COMPLICATIONS; Z79.4 - MCC (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 OF INSULIN (6) UTI (urinary tract infection) Code(s): N39.0 - URINARY TRACT INFECTION, SITE NOT SPECIFIED Qualifiers: Urinary tract infection type: acute cystitis Hematuria presence: without hematuria Qualified Code(s): N30.00 - Acute cystitis without hematuria Assessment/Plan (1) CHF (congestive heart failure) Assessment/Plan: -continue HD -secondary round today Code(s): I50.9 - HEART FAILURE, UNSPECIFIED Qualifiers: Heart failure type: systolic Heart failure chronicity: acute on chronic Qualified Code(s): I50.23 - Acute on chronic systolic (congestive) heart failure (2) GABI (acute kidney injury) Assessment/Plan -HD yesterday and again today -biopsy postponed to tomorrow -npo after midnight for biopsy Code(s): N17.9 - ACUTE KIDNEY FAILURE, UNSPECIFIED (3) CKD (chronic kidney disease) stage 4, GFR 15-29 ml/min Assessment/Plan: -continue HD today -biopsy as above Code(s): N18.4 - CHRONIC KIDNEY DISEASE, STAGE 4 (SEVERE) (4) Sepsis secondary to UTI Assessment/Plan: -continue rocephin per ID recommendations Code(s): A41.9 - SEPSIS, UNSPECIFIED ORGANISM (5) Insulin dependent diabetes mellitus Assessment/Plan: -continue diabetic diet and insulin Code(s): E11.9 - TYPE 2 DIABETES MELLITUS WITHOUT COMPLICATIONS; Z79.4 - MCC (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 OF INSULIN (6) Anemia of chronic disease -s/p 1 unit
[2018-11-10] MEDS: FUROSEMIDE INJECTION 100 MG in DEXTROSE 5%-WATER - 40 ML IVPB SCH (20:00)
[2018-11-11 03:10] LABS: HBSAG SCREEN Negative (Negative); HEP B CORE AB, TOT Negative (Negative)
[2018-11-11] MEDS ORDERED: MAG HYDROX/AL HYDROX/SIMETH 30 ML UNIT-DOSE CUP PO ONE (03:26)
[2018-11-11] MEDS: FUROSEMIDE INJECTION 100 MG in DEXTROSE 5%-WATER - 40 ML IVPB SCH (03:45)
[2018-11-11] MEDS: INSULIN SLIDING SCALE (NOVOLOG) 1 VIAL SQ SCH ×3 (06:33→16:51)
[2018-11-11] MEDS: hydrALAZINE HCL 50 MG TABLET (FP) PO SCH ×3 (06:49→21:54)
[2018-11-11 07:34] LABS: BASO % 0.3 % (0-2.0); EOS % 0.4 % (0-4.5); HEMATOCRIT 19.3 % (35.4-49); LYMPH % 4.2 % (8-40); MCH 28.3 pg (25.7-33.7); MCHC 33.1 g/dl (32.0-35.9); MEAN CELL VOLUME 85.7 fl (80-96); MEAN PLT VOLUME 7.3 fl (7.5-11.1); MONO % 7.2 % (3.8-10.2); NEUT % 87.9 % (42.8-82.8); PLATELET COUNT 436 K/MM3 (134-434); RBC 2.25 M/mm3 (4.00-5.60); RDW 14.6 % (11.9-15.9)
[2018-11-11 07:45] LABS: HEMOGLOBIN 6.4 GM/dL (11.7-16.9)
[2018-11-11 07:56] LABS: CALCIUM 7.9 mg/dL (8.5-10.1); MAGNESIUM 2.3 mg/dL (1.8-2.4); PHOSPHOROUS 4.1 mg/dL (2.5-4.9); POTASSIUM 3.8 mmol/L (3.5-5.1)
--- NOTE | 2018-11-11 08:43 | PN ---
Physical Exam: SUBJECTIVE: Patient seen and examined,weak, poor interaction, but no complaints. OBJECTIVE: Vital Signs Period Temp Pulse Resp BP Sys/Olpez Pulse Ox Last 24 Hr 98.1 F-99.2 F 71-90 18-22 117-192/57-102 100-100 Intake & Output 11/08/18 11/09/18 11/10/18 11/11/18 23:59 23:59 23:59 23:59 Intake Total 120 200 795 Output Total 1500 1800 2100 Balance -1380 -1600 -1305 Weight 302 lb 9.6 oz 277 lb GENERAL: overall anasarca, improved from last week Chest: decreased breath sounds at bases, L>R, decreased effort Abdomen: soft, distended, NT Extremities: 2+ pedal pitting edema, improved from last week Psych: co-operative but minimal interaction Laboratory Results - last 24 hr 11/07/18 11/09/18 11/09/18 12:55 15:00 15:00 WBC RBC Hgb Hct MCV MCH MCHC RDW Plt Count MPV Absolute Neuts (auto) Neutrophils % Neutrophils % (Manual) Band Neutrophils % Lymphocytes % Lymphocytes % (Manual) Monocytes % Monocytes % (Manual) Eosinophils % Eosinophils % (Manual) Basophils % Basophils % (Manual) Myelocytes % (Man) Promyelocytes % (Man) Blast Cells % (Manual) Nucleated RBC % Metamyelocytes Hypochromia Platelet Estimate Polychromasia Poikilocytosis Anisocytosis Microcytosis Macrocytosis Sodium Potassium Chloride Carbon Dioxide Anion Gap BUN Creatinine POC Glucometer Random Glucose Calcium Phosphorus Magnesium Hepatitis A Ab Total Negative Hep Bs Antigen Negative Hep Bs Antibody Non reactive Hep B Core Total Ab Negative Hep C Ab Diagnostic 0.1 Blood Type O NEGATIVE Antibody Screen Negative Crossmatch See Detail 11/10/18 11/10/18 11/10/18 06:58 06:58 11:45 WBC 15.0 H RBC 2.55 L Hgb 7.2 L Hct 21.8 L MCV 85.5 MCH 28.1 MCHC 32.9 RDW 14.3 Plt Count 417 D MPV 7.6 Absolute Neuts (auto) 12.7 H Neutrophils % 84.5 H Neutrophils % (Manual) 79.0 Band Neutrophils % 3.0 Lymphocytes % 5.1 L Lymphocytes % (Manual) 7.0 L D Monocytes % 9.5 Monocytes % (Manual) 9 Eosinophils % 0.5 Eosinophils % (Manual) 0.0 Basophils % 0.4 D Basophils % (Manual) 0.0 Myelocytes % (Man) 2 D Promyelocytes % (Man) 0 Blast Cells % (Manual) 0 Nucleated RBC % 0 Metamyelocytes 0 Hypochromia 0 Platelet Estimate Normal Polychromasia 0 Poikilocytosis 0 Anisocytosis 1+ Microcytosis 1+ Macrocytosis 0 Sodium Potassium Chloride Carbon Dioxide Anion Gap BUN 118 H* Creatinine POC Glucometer 138 Random Glucose Calcium Phosphorus Magnesium Hepatitis A Ab Total Hep Bs Antigen Hep Bs Antibody Hep B Core Total Ab Hep C Ab Diagnostic Blood Type Antibody Screen Crossmatch 11/10/18 11/11/18 11/11/18 17:15 05:11 06:44 WBC RBC Hgb Hct MCV MCH MCHC RDW Plt Count MPV Absolute Neuts (auto) Neutrophils % Neutrophils % (Manual) Band Neutrophils % Lymphocytes % Lymphocytes % (Manual) Monocytes % Monocytes % (Manual) Eosinophils % Eosinophils % (Manual) Basophils % Basophils % (Manual) Myelocytes % (Man) Promyelocytes % (Man) Blast Cells % (Manual) Nucleated RBC % Metamyelocytes Hypochromia Platelet Estimate Polychromasia Poikilocytosis Anisocytosis Microcytosis Macrocytosis Sodium 135 L Potassium 3.8 Chloride 100 Carbon Dioxide 29 Anion Gap 7 L BUN 98 H Creatinine 3.9 H POC Glucometer 160 215 Random Glucose 188 H Calcium 7.9 L Phosphorus 4.1 Magnesium 2.3 Hepatitis A Ab Total Hep Bs Antigen Hep Bs Antibody Hep B Core Total Ab Hep C Ab Diagnostic Blood Type Antibody Screen Crossmatch 11/11/18 06:57 WBC 19.0 H RBC 2.25 L Hgb 6.4 L* Hct 19.3 L MCV 85.7 MCH 28.3 MCHC 33.1 RDW 14.6 Plt Count 436 H MPV 7.3 L Absolute Neuts (auto) 16.7 H Neutrophils % 87.9 H Neutrophils % (Manual) Band Neutrophils % Lymphocytes % 4.2 L Lymphocytes % (Manual) Monocytes % 7.2 Monocytes % (Manual) Eosinophils % 0.4 Eosinophils % (Manual) Basophils % 0.3 Basophils % (Manual) Myelocytes % (Man) Promyelocytes % (Man) Blast Cells % (Manual) Nucleated RBC % 0 Metamyelocytes Hypochromia Platelet Estimate Polychromasia Poikilocytosis Anisocytosis Microcytosis Macrocytosis Sodium Potassium Chloride Carbon Dioxide Anion Gap BUN Creatinine POC Glucometer Random Glucose Calcium Phosphorus Magnesium Hepatitis A Ab Total Hep Bs Antigen Hep Bs Antibody Hep B Core Total Ab Hep C Ab Diagnostic Blood Type Antibody Screen Crossmatch Active Medications Generic Name Dose Route Start Last Admin Trade Name Freq PRN Reason Stop Dose Admin Acetaminophen 650 mg 10/28/18 16:55 11/05/18 22:30 Tylenol - PO 650 mg Q6H PRN Administration PAIN LEVEL 1-5 Ergocalciferol 50,000 unit 10/26/18 12:00 11/09/18 12:00 Drisdol - PO 50,000 unit Mo [facility] Administration Finasteride 5 mg 11/03/18 14:30 11/10/18 12:39 Proscar - PO 5 mg DAILY [facility] Administration Guaifenesin 5 ml 10/29/18 20:47 11/10/18 00:48 Diabetic Tussin Dm - PO 5 ml Q6H PRN Administration COUGH Hydralazine HCl 50 mg 10/26/18 14:00 11/11/18 06:49 Apresoline - PO 50 mg TID [facility] Administration Furosemide 100 mg/ Dextrose 50 mls @ 7.5 mls/hr 11/05/18 16:55 11/11/18 03:45 IVPB 15 mg/hr TITR [facility] 7.5 mls/hr Administration Protocol 15 MG/HR Ceftriaxone Sodium 1 gm/ 50 mls @ 100 mls/hr 11/09/18 10:00 11/10/18 12:44 Dextrose IVPB 100 mls/hr DAILY [facility] Administration Protocol Sodium Chloride 250 mls @ 3,000 mls/hr 11/09/18 15:19 Normal Saline - IV PRN PRN Hypotension during Dialysis Insulin Aspart 1 vial 10/26/18 16:30 11/11/18 06:33 Novolog Vial Sliding Scale - SQ Not Given TIDAC [facility] Protocol Isosorbide Mononitrate 30 mg 10/27/18 10:00 11/10/18 12:38 Imdur - PO 30 mg DAILY [facility] Administration Labetalol HCl 300 mg 10/26/18 22:00 11/10/18 20:59 Normodyne - PO 300 mg BID [facility] Administration Nifedipine 30 mg 11/10/18 11:45 11/10/18 13:40 Procardia Xl - PO 30 mg DAILY [facility] Administration Ranolazine 500 mg 10/26/18 22:00 11/10/18 20:59 Ranexa - PO 500 mg BID [facility] Administration Tamsulosin HCl 0.8 mg 11/04/18 08:30 11/10/18 11:45 Flomax - PO 0.8 mg DAILY@0830 [facility] Administration ASSESSMENT/PLAN: 58 yom with PMX of CAD s/p Stage FER PCI 09/2017/10/2017, HTN, HLD, NIDDM, CKD stage III, (recent renal dysfunction, was planned for possible PCI), PAD s/p SFA PCI 2016 admitted with CHF -Acute systolic heart failure exacerbation, on new HD -ESRD on new HD -E. Coli UTI/sepsis with bacteremia -Anemia of chronic disease -CAD s/p staged PCI 09/2017 and 10/2017 -Cardiomyopathy, suspect ischemia EF 40-45% -Left pleural effusion, suspect transudative based on current presentation -Low grade fever, suspect atelectasis -HTN -HLD -NIDDM -CKD stage III -PAD s/p SFA PCI 2016 Plan: Started on HD 11/09, s/p 2 sessions. renal biopsy on hold today given severe anemia. s/p 2units PRBC with HD today. Renal input appreciated. off lasix drip, start lasix 80 mg IV BID, strict I/Os, daily weights. NPO after midnight. Cardiology input appreciated. RHC per clinical course. Voiding trial. Delgado d/kaylee. ID input noted. Ceftriaxone day 6. Repeat blood cx neg. Continue flomax/finasteride. Renal/Bladder US noted. Encourage OOB and incentive spirometry. ASA/plavix on hold for renal biopsy. LUE duplex neg for DVT Continue Labetalol/hydralazine/nifedipine/ranexa/Imdur. ISS, diabetic diet DVTPPX heparin on hold for IR guided biopsy today. PT eval, encourage OOB Dispo pending clinical improvement. May need transfer to [facility] if fails to improve. Plan discussed with patient and nursing, all questions answered. Care co-ordinated with nephrology. Visit type - Emergency Visit Emergency Visit: Yes ED Registration Date: 10/26/18 Care time: The patient presented to the Emergency Department on the above date and was hospitalized for further evaluation of their emergent condition. - New Patient This patient is new to me today: No - Critical Care Critical Care patient: No - Discharge Referral Referred to [facility] Med P.C.: No
[2018-11-11] MEDS ORDERED: DEXTROSE 5%-WATER - 50 ML IVPB ONE (09:38)
[2018-11-11] MEDS ORDERED: cefTRIAXone SODIUM 1 GM VIAL ONE (09:38)
[2018-11-11 10:01] LABS: CREATININE 3.9 mg/dL (0.55-1.3)
[2018-11-11] MEDS: RANOLAZINE E.R. 500 MG TABLET (FP) PO SCH ×2 (10:16→21:54)
[2018-11-11] MEDS: CEFTRIAXONE 1 GM in DEXTROSE 5%-WATER - 50 ML IVPB SCH ×2 (10:16→16:38)
[2018-11-11] MEDS: LABETALOL HCL 100 MG TABLET (FP) PO SCH ×2 (10:16→21:57)
[2018-11-11] MEDS: ISOSORBIDE MONONITRATE 30 MG TAB.SR.24H (FP) PO SCH (10:16)
[2018-11-11] MEDS: TAMSULOSIN HCL 0.4 MG CAP PO SCH (10:16)
[2018-11-11] MEDS: FINASTERIDE 5 MG TABLET (FP) PO SCH (10:16)
[2018-11-11] MEDS: NIFEdipine E.R. 30 MG TABLET (FP) PO SCH (10:16)
[2018-11-11 10:17] LABS: INR 1.49 (0.83-1.09); PROTHROMBIN TIME (PATIENT) 17.6 SEC (9.7-13.0)
--- NOTE | 2018-11-11 10:45 | PN ---
Progress Note (short form) - Note Progress Note: s: no chest pain, palps, dyspnea TELE: NSR. Current Medications Acetaminophen (Tylenol -) 650 mg PO Q6H PRN PRN Reason: PAIN LEVEL 1-5 Last Admin: 11/05/18 22:30 Dose: 650 mg Epoetin Uche (Epogen -) 20,000 unit IVPUSH ONCE ONE Stop: 11/11/18 10:05 Ergocalciferol (Drisdol -) 50,000 unit PO Mo [facility] Last Admin: 11/09/18 12:00 Dose: 50,000 unit Finasteride (Proscar -) 5 mg PO DAILY [facility] Last Admin: 11/11/18 10:16 Dose: 5 mg Guaifenesin (Diabetic Tussin Dm -) 5 ml PO Q6H PRN PRN Reason: COUGH Last Admin: 11/10/18 00:48 Dose: 5 ml Hydralazine HCl (Apresoline -) 50 mg PO TID [facility] Last Admin: 11/11/18 06:49 Dose: 50 mg Furosemide 100 mg/ Dextrose 50 mls @ 7.5 mls/hr IVPB TITR [facility]; Protocol Last Admin: 11/11/18 03:45 Dose: 15 mg/hr, 7.5 mls/hr Ceftriaxone Sodium 1 gm/ (Dextrose) 50 mls @ 100 mls/hr IVPB DAILY [facility]; Protocol Last Admin: 11/10/18 12:44 Dose: 100 mls/hr Sodium Chloride (Normal Saline -) 250 mls @ 3,000 mls/hr IV PRN PRN PRN Reason: Hypotension during Dialysis Sodium Chloride (Normal Saline -) 250 mls @ 3,000 mls/hr IV PRN PRN PRN Reason: Hypotension during Dialysis Stop: 11/12/18 10:04 Insulin Aspart (Novolog Vial Sliding Scale -) 1 vial SQ TIDAC [facility]; Protocol Last Admin: 11/11/18 06:33 Dose: Not Given Isosorbide Mononitrate (Imdur -) 30 mg PO DAILY [facility] Last Admin: 11/11/18 10:16 Dose: 30 mg Labetalol HCl (Normodyne -) 300 mg PO BID [facility] Last Admin: 11/11/18 10:16 Dose: 300 mg Nifedipine (Procardia Xl -) 30 mg PO DAILY [facility] Last Admin: 11/11/18 10:16 Dose: 30 mg Ranolazine (Ranexa -) 500 mg PO BID [facility] Last Admin: 11/11/18 10:16 Dose: 500 mg Tamsulosin HCl (Flomax -) 0.8 mg PO DAILY@0830 [facility] Last Admin: 11/11/18 10:16 Dose: 0.8 mg Vital Signs Period Temp Pulse Resp BP Sys/Lopez Pulse Ox Last 24 Hr 98.1 F-99.2 F 71-80 18-20 117-192/57-102 93-100 Constitutional: Yes: No Distress Cardiovascular: Yes: Regular Rate and Rhythm Respiratory: Yes: Other (decreased breath sounds at bases. No active wheezing.) Gastrointestinal: Yes: Soft, Abdomen, Obese Edema: Yes Edema: LLE: 2+, RLE: 2+ Neurological: Yes: Alert, Oriented no jaundice not agitated Assessment/Plan 1. Acute systolic HF exacerbation: - EF 40-45% - cont labetolol, not on ACEI/ARB for CKD - continue hydralzine and imdur. - Hypoalbuminemia may also be contributing to edema - edema improving with HD, weight down, volume management per renal 2. CKD - renal following - holding aspirin and plavix for kidney bx - HD per renal 3. CAD: - s/p FER most recently 09/2017, 10/2017 - on aspirin and plavix, holding for planned kidney bx 4. HTN: - monitor BP, increase hydralazine if remains elevated
[2018-11-11 11:02] LABS: ANISOCYTOSIS 1+; MACROCYTOSIS 0; PLATELET ESTIMATE NORMAL
[2018-11-11] MEDS ORDERED: SODIUM CHLORIDE 250 ML IV PRN (11:56)
[2018-11-11] MEDS ORDERED: EPOETIN ALFA 20,000 UNIT/1 ML VIAL IVPUSH ONE (12:00)
--- NOTE | 2018-11-11 15:50 | PN ---
Progress Note (short form) - Note Progress Note: Renal follow up for CKD Pt seen and examined at the bedside during dialysis awake and alert Renal biopsy postponed due to anemia getting PRBC transfusion with HD today denies an sob, cp, fever or chills Vital Signs Temperature 97.9 F 11/11/18 14:00 Pulse Rate 73 11/11/18 14:55 Respiratory Rate 18 11/11/18 14:55 Blood Pressure 138/77 11/11/18 14:55 O2 Sat by Pulse Oximetry (%) 93 L 11/11/18 08:36 Intake & Output 11/08/18 11/09/18 11/10/18 11/11/18 23:59 23:59 23:59 23:59 Intake Total 120 200 795 360 Output Total 1500 1800 2100 Balance -1380 -1600 -1305 360 Weight 137.257 kg 125.645 kg NAD RRR, no M/R Dec BS at lung bases, no rales soft obese, NT/ND + upper extremity edema ++ bilateral LE edema CBC, BMP 11/11/18 06:57 11/11/18 06:44 Current Medications Acetaminophen (Tylenol -) 650 mg PO Q6H PRN PRN Reason: PAIN LEVEL 1-5 Last Admin: 11/05/18 22:30 Dose: 650 mg Ergocalciferol (Drisdol -) 50,000 unit PO Mo SANGEETHA Last Admin: 11/09/18 12:00 Dose: 50,000 unit Finasteride (Proscar -) 5 mg PO DAILY SANGEETHA Last Admin: 11/11/18 10:16 Dose: 5 mg Guaifenesin (Diabetic Tussin Dm -) 5 ml PO Q6H PRN PRN Reason: COUGH Last Admin: 11/10/18 00:48 Dose: 5 ml Hydralazine HCl (Apresoline -) 50 mg PO TID SANGEETHA Last Admin: 11/11/18 06:49 Dose: 50 mg Furosemide 100 mg/ Dextrose 50 mls @ 7.5 mls/hr IVPB TITR SANGEETHA; Protocol Last Admin: 11/11/18 03:45 Dose: 15 mg/hr, 7.5 mls/hr Ceftriaxone Sodium 1 gm/ (Dextrose) 50 mls @ 100 mls/hr IVPB DAILY SANGEETHA; Protocol Last Admin: 11/10/18 12:44 Dose: 100 mls/hr Sodium Chloride (Normal Saline -) 250 mls @ 3,000 mls/hr IV PRN PRN PRN Reason: Hypotension during Dialysis Sodium Chloride (Normal Saline -) 250 mls @ 3,000 mls/hr IV PRN PRN PRN Reason: Hypotension during Dialysis Stop: 11/12/18 11:55 Insulin Aspart (Novolog Vial Sliding Scale -) 1 vial SQ TIDAC [facility]; Protocol Last Admin: 11/11/18 11:57 Dose: 2 units Isosorbide Mononitrate (Imdur -) 30 mg PO DAILY [facility] Last Admin: 11/11/18 10:16 Dose: 30 mg Labetalol HCl (Normodyne -) 300 mg PO BID [facility] Last Admin: 11/11/18 10:16 Dose: 300 mg Nifedipine (Procardia Xl -) 30 mg PO DAILY [facility] Last Admin: 11/11/18 10:16 Dose: 30 mg Ranolazine (Ranexa -) 500 mg PO BID [facility] Last Admin: 11/11/18 10:16 Dose: 500 mg Tamsulosin HCl (Flomax -) 0.8 mg PO DAILY@0830 [facility] Last Admin: 11/11/18 10:16 Dose: 0.8 mg 58 year old gentleman with hx of CKD with proteinuria, CHF, CAD s/p PCI, Hypertension, hyperlipidemia who preesnted from home with LE swelling and sob and admitted for CHF exacerbation with Cr of 2.4-2.6. #CHF exacerbation/gross fluid overload #GABI w/o clear etiology #Proteinuria (nephrotic range proteinuira) #CAD #HLD getting 3rd run of HD today with PRBC transfusion Will give RICHARD with dialysis as well start Bolous Lasix IV BID For biopsy tomorrow as per IR keep NPO after midnight Cardiology following Thank you Mansoor Quiroz DO
[2018-11-12] MEDS: FUROSEMIDE 40 MG/4 ML INJECTABLE VIAL IVPUSH SCH ×2 (05:54→15:10)
[2018-11-12] MEDS: hydrALAZINE HCL 50 MG TABLET (FP) PO SCH ×3 (05:55→21:19)
[2018-11-12] MEDS: INSULIN SLIDING SCALE (NOVOLOG) 1 VIAL SQ SCH ×3 (06:18→17:51)
[2018-11-12 06:58] LABS: BASO % 0.4 % (0-2.0); EOS % 0.5 % (0-4.5); HEMOGLOBIN 7.6 GM/dL (11.7-16.9); LYMPH % 4.1 % (8-40); MCH 28.5 pg (25.7-33.7); MCHC 33.2 g/dl (32.0-35.9); MEAN CELL VOLUME 86.1 fl (80-96); MEAN PLT VOLUME 7.3 fl (7.5-11.1); MONO % 6.8 % (3.8-10.2); NEUT % 88.2 % (42.8-82.8); PLATELET COUNT 405 K/MM3 (134-434); RBC 2.68 M/mm3 (4.00-5.60); RDW 14.4 % (11.9-15.9); WHITE BLOOD COUNT 25.8 K/mm3 (4.0-10.0)
[2018-11-12 08:20] LABS: ALBUMIN 1.8 g/dl (3.4-5.0); BILIRUBIN,TOTAL 0.8 mg/dL (0.2-1); CALCIUM 8.2 mg/dL (8.5-10.1); CREATININE 3.2 mg/dL (0.55-1.3); MAGNESIUM 2.1 mg/dL (1.8-2.4); PHOSPHOROUS 2.5 mg/dL (2.5-4.9); TOT PROT 5.8 g/dl (6.4-8.2)
[2018-11-12] MEDS ORDERED: cefTRIAXone SODIUM 1 GM VIAL ONE (08:43)
[2018-11-12] MEDS ORDERED: DEXTROSE 5%-WATER - 50 ML IVPB ONE (08:44)
[2018-11-12] MEDS: NIFEdipine E.R. 30 MG TABLET (FP) PO SCH (09:23)
[2018-11-12] MEDS: LABETALOL HCL 100 MG TABLET (FP) PO SCH ×2 (09:23→21:19)
[2018-11-12] MEDS: CEFTRIAXONE 1 GM in DEXTROSE 5%-WATER - 50 ML IVPB SCH (09:23)
[2018-11-12] MEDS: RANOLAZINE E.R. 500 MG TABLET (FP) PO SCH ×2 (09:24→21:18)
[2018-11-12] MEDS: PANTOPRAZOLE 40 MG TABLET (FP) PO SCH (09:24)
[2018-11-12] MEDS: FINASTERIDE 5 MG TABLET (FP) PO SCH (09:24)
[2018-11-12] MEDS: ISOSORBIDE MONONITRATE 30 MG TAB.SR.24H (FP) PO SCH (09:24)
[2018-11-12] MEDS: TAMSULOSIN HCL 0.4 MG CAP PO SCH (09:24)
[2018-11-12 11:47] LABS: ANISOCYTOSIS 1+; MACROCYTOSIS 0; PLATELET ESTIMATE NORMAL
--- NOTE | 2018-11-12 11:58 | PN ---
Progress Note (short form) - Note Progress Note: s: no chest pain, palps, dyspnea dizzy TELE: sr Current Medications Generic Name Dose Route Start Last Admin Trade Name Freq PRN Reason Stop Dose Admin Acetaminophen 650 mg 10/28/18 16:55 11/05/18 22:30 Tylenol - PO 650 mg Q6H PRN Administration PAIN LEVEL 1-5 Ergocalciferol 50,000 unit 10/26/18 12:00 11/09/18 12:00 Drisdol - PO 50,000 unit Mo SANGEETHA Administration Finasteride 5 mg 11/03/18 14:30 11/12/18 09:24 Proscar - PO 5 mg DAILY SANGEETHA Administration Furosemide 40 mg 11/12/18 06:00 11/12/18 05:54 Lasix Injection - IVPUSH 40 mg BID@0600,1400 SANGEETHA Administration Guaifenesin 5 ml 10/29/18 20:47 11/10/18 00:48 Diabetic Tussin Dm - PO 5 ml Q6H PRN Administration COUGH Hydralazine HCl 50 mg 10/26/18 14:00 11/12/18 05:55 Apresoline - PO 50 mg TID SANGEETHA Administration Ceftriaxone Sodium 1 gm/ 50 mls @ 100 mls/hr 11/09/18 10:00 11/12/18 09:23 Dextrose IVPB 100 mls/hr DAILY SANGEETHA Administration Protocol Sodium Chloride 250 mls @ 3,000 mls/hr 11/09/18 15:19 Normal Saline - IV PRN PRN Hypotension during Dialysis Insulin Aspart 1 vial 10/26/18 16:30 11/12/18 11:46 Novolog Vial Sliding Scale - SQ Not Given TIDAC SANGEETHA Protocol Isosorbide Mononitrate 30 mg 10/27/18 10:00 11/12/18 09:24 Imdur - PO 30 mg DAILY SANGEETHA Administration Labetalol HCl 300 mg 10/26/18 22:00 11/12/18 09:23 Normodyne - PO 300 mg BID SANGEETHA Administration Nifedipine 30 mg 11/10/18 11:45 11/12/18 09:23 Procardia Xl - PO 30 mg DAILY SANGEETHA Administration Pantoprazole Sodium 40 mg 11/12/18 10:00 11/12/18 09:24 Protonix - PO 40 mg DAILY SANGEETHA Administration Ranolazine 500 mg 10/26/18 22:00 11/12/18 09:24 Ranexa - PO 500 mg BID SANGEETHA Administration Tamsulosin HCl 0.8 mg 11/04/18 08:30 11/12/18 09:24 Flomax - PO 0.8 mg DAILY@0830 SANGEETHA Administration Vital Signs Period Temp Pulse Resp BP Sys/Lopez Pulse Ox Last 24 Hr 97.9 F-99.4 F 71-78 18-22 117-144/63-85 99-99 Constitutional: Yes: No Distress Cardiovascular: Yes: Regular Rate and Rhythm Respiratory: Yes: Other (decreased breath sounds at bases. No active wheezing.) Gastrointestinal: Yes: Soft, Abdomen, Obese Edema: Yes Edema: LLE: 1+, RLE: 1+ Neurological: Yes: Alert, Oriented no jaundice diaphoresis not agitated Assessment/Plan 1. Acute systolic HF exacerbation: - EF 40-45% - cont labetolol, not on ACEI/ARB for CKD - continue hydralzine and imdur. - Hypoalbuminemia may also be contributing to edema - edema improving with HD, weight down, volume management per renal 2. CKD - renal following - holding aspirin and plavix for kidney bx - HD per renal 3. CAD: - s/p FER most recently 09/2017, 10/2017 - on aspirin and plavix, holding for planned kidney bx 4. HTN: - monitor BP, can increase hydralazine if remains elevated
--- NOTE | 2018-11-12 13:48 | PN ---
Physical Exam: SUBJECTIVE: Patient seen and examined, weak, dyspnea with exertion but no new cough, abdominal or urinary symptoms. OBJECTIVE: Vital Signs Period Temp Pulse Resp BP Sys/Lopez Pulse Ox Last 24 Hr 97.9 F-99.4 F 71-78 18-22 122-144/64-85 99-99 Intake & Output 11/09/18 11/10/18 11/11/18 11/12/18 23:59 23:59 23:59 23:59 Intake Total 200 795 560 30 Output Total 1800 2100 Balance -1600 -1305 560 30 Weight 277 lb 265 lb 6.4 oz GENERAL:alert, awake, in no acute distress Chest; Decreased effort, decreased breath sounds at bases, L>R Abdomen:soft, improved distension, NT throughout Extremities 2+ pedal edema, improved from before Laboratory Results - last 24 hr 11/11/18 11/11/18 11/12/18 11:10 16:41 05:30 WBC 25.8 H RBC 2.68 L Hgb 7.6 L Hct 23.0 L D MCV 86.1 MCH 28.5 MCHC 33.2 RDW 14.4 Plt Count 405 MPV 7.3 L Absolute Neuts (auto) 22.8 H Neutrophils % 88.2 H Neutrophils % (Manual) 91.9 H Band Neutrophils % 1.0 Lymphocytes % 4.1 L Lymphocytes % (Manual) 0.0 L Monocytes % 6.8 Monocytes % (Manual) 6 D Eosinophils % 0.5 Eosinophils % (Manual) 1.0 D Basophils % 0.4 Basophils % (Manual) 0.0 Myelocytes % (Man) 0 D Promyelocytes % (Man) 0 Blast Cells % (Manual) 0 Nucleated RBC % 0 Metamyelocytes 0 D Hypochromia 1+ Platelet Estimate Normal Polychromasia 1+ Poikilocytosis 0 Anisocytosis 1+ Microcytosis 2+ Macrocytosis 0 Sodium Potassium Chloride Carbon Dioxide Anion Gap BUN Creatinine Est GFR (CKD-EPI)AfAm Est GFR (CKD-EPI)NonAf POC Glucometer 174 Random Glucose Calcium Phosphorus Magnesium Total Bilirubin AST ALT Alkaline Phosphatase Total Protein Albumin Blood Type O NEGATIVE Antibody Screen Negative Crossmatch See Detail 11/12/18 11/12/18 06:14 06:45 WBC RBC Hgb Hct MCV MCH MCHC RDW Plt Count MPV Absolute Neuts (auto) Neutrophils % Neutrophils % (Manual) Band Neutrophils % Lymphocytes % Lymphocytes % (Manual) Monocytes % Monocytes % (Manual) Eosinophils % Eosinophils % (Manual) Basophils % Basophils % (Manual) Myelocytes % (Man) Promyelocytes % (Man) Blast Cells % (Manual) Nucleated RBC % Metamyelocytes Hypochromia Platelet Estimate Polychromasia Poikilocytosis Anisocytosis Microcytosis Macrocytosis Sodium 137 Potassium 4.0 Chloride 99 Carbon Dioxide 30 Anion Gap 8 BUN 72 H Creatinine 3.2 H Est GFR (CKD-EPI)AfAm 23.62 Est GFR (CKD-EPI)NonAf 20.38 POC Glucometer 203 Random Glucose 192 H Calcium 8.2 L Phosphorus 2.5 Magnesium 2.1 Total Bilirubin 0.8 AST 34 ALT 47 Alkaline Phosphatase 137 H Total Protein 5.8 L Albumin 1.8 L Blood Type Antibody Screen Crossmatch Active Medications Generic Name Dose Route Start Last Admin Trade Name Freq PRN Reason Stop Dose Admin Acetaminophen 650 mg 10/28/18 16:55 11/05/18 22:30 Tylenol - PO 650 mg Q6H PRN Administration PAIN LEVEL 1-5 Ergocalciferol 50,000 unit 10/26/18 12:00 11/09/18 12:00 Drisdol - PO 50,000 unit Mo SANGEETHA Administration Finasteride 5 mg 11/03/18 14:30 11/12/18 09:24 Proscar - PO 5 mg DAILY SANGEETHA Administration Furosemide 40 mg 11/12/18 06:00 11/12/18 05:54 Lasix Injection - IVPUSH 40 mg BID@0600,1400 SANGEETHA Administration Guaifenesin 5 ml 10/29/18 20:47 11/10/18 00:48 Diabetic Tussin Dm - PO 5 ml Q6H PRN Administration COUGH Hydralazine HCl 50 mg 10/26/18 14:00 11/12/18 05:55 Apresoline - PO 50 mg TID SANGEETHA Administration Ceftriaxone Sodium 1 gm/ 50 mls @ 100 mls/hr 11/09/18 10:00 11/12/18 09:23 Dextrose IVPB 100 mls/hr DAILY SANGEETHA Administration Protocol Sodium Chloride 250 mls @ 3,000 mls/hr 11/09/18 15:19 Normal Saline - IV PRN PRN Hypotension during Dialysis Insulin Aspart 1 vial 10/26/18 16:30 11/12/18 11:46 Novolog Vial Sliding Scale - SQ Not Given TIDAC [facility] Protocol Isosorbide Mononitrate 30 mg 10/27/18 10:00 11/12/18 09:24 Imdur - PO 30 mg DAILY SANGEETHA Administration Labetalol HCl 300 mg 10/26/18 22:00 11/12/18 09:23 Normodyne - PO 300 mg BID SANGEETHA Administration Nifedipine 30 mg 11/10/18 11:45 11/12/18 09:23 Procardia Xl - PO 30 mg DAILY SANGEETHA Administration Pantoprazole Sodium 40 mg 11/12/18 10:00 11/12/18 09:24 Protonix - PO 40 mg DAILY SANGEETHA Administration Ranolazine 500 mg 10/26/18 22:00 11/12/18 09:24 Ranexa - PO 500 mg BID SANGEETHA Administration Tamsulosin HCl 0.8 mg 11/04/18 08:30 11/12/18 09:24 Flomax - PO 0.8 mg DAILY@0830 SANGEETHA Administration Microbiology 11/07/18 07:35 Blood - Peripheral Venous Blood Culture - Final NO GROWTH AFTER 5 DAYS INCUBATION 11/07/18 08:00 Blood - Peripheral Venous Blood Culture - Final NO GROWTH AFTER 5 DAYS INCUBATION 11/04/18 13:00 Blood - Peripheral Venous Blood Culture - Final NO GROWTH AFTER 5 DAYS INCUBATION 11/05/18 04:10 Urine - Urine - Catheterized Urine Culture - Final Escherichia Coli Strep Agalactiae Group B 11/04/18 12:53 Blood - Peripheral Venous Blood Culture - Final Escherichia Coli ASSESSMENT/PLAN: 58 yom with PMX of CAD s/p Stage FER PCI 09/2017/10/2017, HTN, HLD, NIDDM, CKD stage III, (recent renal dysfunction, was planned for possible PCI), PAD s/p SFA PCI 2016 admitted with CHF -Leucocytosis, r/oo infection, -Acute systolic heart failure exacerbation, on new HD -ESRD on new HD -E. Coli UTI/sepsis with bacteremia -Anemia of chronic disease -CAD s/p staged PCI 09/2017 and 10/2017 -Cardiomyopathy, suspect ischemia EF 40-45% -Left pleural effusion, suspect transudative based on current presentation -HTN -HLD -NIDDM -CKD stage III -PAD s/p SFA PCI 2016 Plan: WBC rising, repeat blood cx/urine studies. CT chest/A/P. Ceftriaxone day 7. Discussed with Dr. Sandra, follow up recs. Started on HD 11/09, s/p 3 sessions. Renal biopsy on hold today given worsening leucocytosis. s/p 2units PRBC 11/11. Suboptimal response, FOBT on 11/08 pos, GI consult . Renal input appreciated. off lasix drip, lasix 40 mg IV BID, strict I/Os, daily weights. Volume status continues to improve. Cardiology input appreciated. RHC per clinical course. Voiding trial. Delgado d/kaylee. Continue flomax/finasteride. Renal/Bladder US noted. Encourage OOB and incentive spirometry. ASA/plavix on hold for renal biopsy. LUE duplex neg for DVT Continue Labetalol/hydralazine/nifedipine/ranexa/Imdur. ISS, diabetic diet DVTPPX SCDs given recurrent anemia and concerns for GI bleed PT eval, encourage OOB Dispo pending clinical improvement. May need transfer to [facility] if fails to improve. Plan discussed with patient and nursing, all questions answered. Care co-ordinated with nephrology. Visit type - Emergency Visit Emergency Visit: Yes ED Registration Date: 10/26/18 Care time: The patient presented to the Emergency Department on the above date and was hospitalized for further evaluation of their emergent condition. - New Patient This patient is new to me today: No - Critical Care Critical Care patient: No - Discharge Referral Referred to [facility] Med P.C.: No
--- NOTE | 2018-11-12 13:51 | PN ---
Progress Note (short form) - Note Progress Note: Renal follow up for CKD Pt seen and examined at the bedside during dialysis awake and alert complains of diffuse body aches + cough but unable to bring up sputum no abd pain no N/V/D making urine w/o haider Vital Signs Temperature 99.3 F 11/12/18 08:00 Pulse Rate 78 11/12/18 08:00 Respiratory Rate 22 H 11/12/18 08:00 Blood Pressure 125/68 11/12/18 08:00 O2 Sat by Pulse Oximetry (%) 99 11/12/18 08:00 Intake & Output 11/09/18 11/10/18 11/11/18 11/12/18 23:59 23:59 23:59 23:59 Intake Total 200 795 560 30 Output Total 1800 2100 Balance -1600 -1305 560 30 Weight 125.645 kg 120.383 kg NAD RRR, no M/R Dec BS at lung bases, + rales soft obese, NT/ND + upper extremity edema ++ bilateral LE edema CBC, BMP 11/12/18 05:30 11/12/18 06:45 Current Medications Acetaminophen (Tylenol -) 650 mg PO Q6H PRN PRN Reason: PAIN LEVEL 1-5 Last Admin: 11/05/18 22:30 Dose: 650 mg Ergocalciferol (Drisdol -) 50,000 unit PO Mo SANGEETHA Last Admin: 11/09/18 12:00 Dose: 50,000 unit Finasteride (Proscar -) 5 mg PO DAILY SANGEETHA Last Admin: 11/12/18 09:24 Dose: 5 mg Furosemide (Lasix Injection -) 40 mg IVPUSH BID@0600,1400 SANGEETHA Last Admin: 11/12/18 05:54 Dose: 40 mg Guaifenesin (Diabetic Tussin Dm -) 5 ml PO Q6H PRN PRN Reason: COUGH Last Admin: 11/10/18 00:48 Dose: 5 ml Hydralazine HCl (Apresoline -) 50 mg PO TID SANGEETHA Last Admin: 11/12/18 05:55 Dose: 50 mg Ceftriaxone Sodium 1 gm/ (Dextrose) 50 mls @ 100 mls/hr IVPB DAILY SANGEETHA; Protocol Last Admin: 11/12/18 09:23 Dose: 100 mls/hr Sodium Chloride (Normal Saline -) 250 mls @ 3,000 mls/hr IV PRN PRN PRN Reason: Hypotension during Dialysis Insulin Aspart (Novolog Vial Sliding Scale -) 1 vial SQ TIDAC [facility]; Protocol Last Admin: 11/12/18 11:46 Dose: Not Given Isosorbide Mononitrate (Imdur -) 30 mg PO DAILY [facility] Last Admin: 11/12/18 09:24 Dose: 30 mg Labetalol HCl (Normodyne -) 300 mg PO BID [facility] Last Admin: 11/12/18 09:23 Dose: 300 mg Nifedipine (Procardia Xl -) 30 mg PO DAILY [facility] Last Admin: 11/12/18 09:23 Dose: 30 mg Pantoprazole Sodium (Protonix -) 40 mg PO DAILY [facility] Last Admin: 11/12/18 09:24 Dose: 40 mg Ranolazine (Ranexa -) 500 mg PO BID [facility] Last Admin: 11/12/18 09:24 Dose: 500 mg Tamsulosin HCl (Flomax -) 0.8 mg PO DAILY@0830 [facility] Last Admin: 11/12/18 09:24 Dose: 0.8 mg 58 year old gentleman with hx of CKD with proteinuria, CHF, CAD s/p PCI, Hypertension, hyperlipidemia who preesnted from home with LE swelling and sob and admitted for CHF exacerbation with Cr of 2.4-2.6. #CHF exacerbation/gross fluid overload #GABI w/o clear etiology #Proteinuria (nephrotic range proteinuira) #CAD #HLD biospy cancelled due to worsening WBC and low grade temp will repeat cultures again today to get further imaging as per primary ID following will plan for next HD tomorrow PRBC tranfusion if Hgb < 7 stool occult blood positive from 11/08, GI to be consulted will transfuse additional PRBC with HD if Hgb < 8 tomorrow Thank you Mansoor Quiroz DO
[2018-11-12] MEDS ORDERED: SODIUM CHLORIDE 250 ML IV PRN (13:53)
[2018-11-12] MEDS ORDERED: HEPARIN NA (PORCINE) 5,000 UNITS/ML 1ML VIAL SQ SCH (14:00)
--- NOTE | 2018-11-12 17:41 | CON.GI ---
Consult Consult Specialty:: GI Referred by:: Hospitalist Service Reason for Consultation:: Anemia - History of Present Illness Chief Complaint: "I was swelling" History of Present Illness: 58M admitted 10/26/18 for evaluation of worsening LE edema / asnasarca. Has been getting evaluated by nephrology, cardiology, pulmonary, ID. he had dialysis catheter placed and was started on HD. He was noted to be anemic. He has a chronic anemia from at least 2017. he was given 2 U PRBC. There was concern because there was not an appropriate response. No overt bleeding has been reported. No melena noted. Mr. Prater believes that he had an unrevealing colonoscopy performed at [facility] in [facility] that was unrevealing. He was maintained on ASA and Plavix prior to admission. He received IV steroids during this admission. He denies focal GI complaints. There is no family history of colorectal cancer or other GI malignancy. 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: CVA Cardio/Vascular: Yes: CAD, CHF, HTN, Other (PAD) Renal/: Yes: Renal Inusuff Heme/Onc: Yes: Anemia Endocrine: Yes: Diabetes Mellitus (DM II) - Past Surgical History Past Surgical History: Yes: Amputation (Left great toe) Additional Surgical History: placement of dialysis catheter - Alcohol/Substance Use Hx Alcohol Use: Yes (heavy, in past) History of Substance Use: reports: Cocaine (intranasal, multiple years prior), Marijuana (multiple years prior) - Smoking History Smoking history: Former smoker Have you smoked in the past 12 months: No - Social History Usual Living Arrangement: With Spouse ADL: Independent 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[employer], 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 [place] Place of : [facility] History of Recent Travel: No Home Medications - Allergies Allergies/Adverse Reactions: Allergies Allergy/AdvReac Type Severity Reaction Status Date / Time No Known Allergies Allergy Verified 10/26/18 09:08 - Home Medications Home Medications: Ambulatory Orders Glipizide [Glucotrol] 5 mg PO BID 04/08/17 Atorvastatin Ca [Lipitor] 40 mg PO HS 09/25/18 Ergocalciferol (Vitamin D2) [Vitamin D2] 50,000 unit PO WEEKLY 09/25/18 Tamsulosin HCl [Flomax] 0.4 mg PO DAILY 09/25/18 Furosemide [Lasix -] 80 mg PO DAILY 30 Days #60 tablet 10/07/18 Labetalol HCl [Normodyne -] 300 mg PO BID 30 Days #180 tablet 10/07/18 hydrALAZINE HCL [Apresoline -] 50 mg PO TID 30 Days #90 tablet 10/07/18 Aspirin [Aspirin EC] 81 mg PO DAILY 10/11/18 Clopidogrel Bisulfate [Plavix -] 75 mg PO DAILY 10/11/18 Isosorbide Mononitrate [Imdur -] 30 mg PO DAILY 10/11/18 Losartan Potassium 50 mg PO DAILY 10/11/18 Nifedipine ER [Procardia XL -] 90 mg PO DAILY 10/11/18 Ranolazine [Ranexa -] 500 mg PO BID 10/11/18 Family Disease History - Family Disease History Family Disease History: Other: Father ( when the patient was young: CHF), Mother (DiedL 92: Diabetic complications), Brother (1, healthy), Sister (1, healthy), Son (1 alive and healthy, 1 was killed), Daughter (1 alive and healthy ) Other Family History: No family history of colorectal cancer or other GI malignancy Review of Systems - Review of Systems Constitutional: denies: Chills Cardiovascular: reports: Edema. denies: Chest Pain Respiratory: reports: Cough, SOB Gastrointestinal: denies: Abdominal Pain, Diarrhea, Dysphagia, Melena, Nausea, Rectal Bleeding, Vomiting Physical Exam-GI Vital Signs: Vital Signs Temperature 98 F 11/12/18 14:45 Pulse Rate 70 11/12/18 14:45 Respiratory Rate 20 11/12/18 14:45 Blood Pressure 133/64 11/12/18 14:45 O2 Sat by Pulse Oximetry (%) 99 11/12/18 08:00 Constitutional: Yes: Calm Eyes: No: Sclera Icterus Cardiovascular: Yes: Regular Rate and Rhythm, Murmur (holodystolic murmur at the RSB) Respiratory: Yes: Diminished (at bases bilaterally with rhonchi at bases) Gastrointestinal Inspection: No: Distention, Scars ...Auscultate: Yes: Normoactive Bowel Sounds ...Palpate: Yes: Soft. No: Hepatomegaly, Splenomegaly, Tenderness ...Percussion: No: Tympanitic ...Rectal Exam: Yes: Other (No external lesions, no masses, formed dark brown stool, guaiac positive. No fecal impaction.) Edema: Yes Edema: LLE: 3+ (to knee), RLE: 3+ (to knee) Neurological: Yes: Alert Labs: CBC, BMP 11/12/18 05:30 11/12/18 06:45 INR, PTT INR 1.49 (0.83-1.09) H 11/11/18 09:23 Imaging - Results Cat Scan: Image Reviewed (Bilateral pleural effusions, ? atelectasis vs. condolidations at bases, colonic diverticulosis. (Awaiting official read)) Problem List - Problems (1) Anemia Assessment/Plan: Chronic normocytic anemia in setting of acute decompensation of clinical condition / renal function without overt GI bleeding. Guaiac +. Suspect multifactorial causes of his anemia. Worsening leukocytosis of unclear etiology. With cough complaints (although states predating admission) and Chest CT scan findings, ? lung source. I did discuss EGD/Colonoscopy with Mr. Prater to evaluate guaiac + stool to exclude source such as bleeding blood vessels, PUD, polyps, cancers of the GI tract such as colon cancer. We discussed potential risks of the procerdures like but not limited to bleeding, perforation requiring surgery to repair, infection, sedation medication effects all of which could be potentially life threatening. He has agreed to the procedures. Will arrange once medically optimized and leukocytosis further invedtigated. For now: Protonix 40mg once daily MiraLAX 17g once daily. Copious stool noted in rectal vault Monitor h/h and for overt bleeding Consider heme evaluation Code(s): D64.9 - ANEMIA, UNSPECIFIED Qualifiers: Anemia type: unspecified type Qualified Code(s): D64.9 - Anemia, unspecified
[2018-11-13] MEDS: INSULIN SLIDING SCALE (NOVOLOG) 1 VIAL SQ SCH ×3 (06:18→17:23)
[2018-11-13] MEDS: hydrALAZINE HCL 50 MG TABLET (FP) PO SCH ×3 (06:18→22:21)
[2018-11-13] MEDS: FUROSEMIDE 40 MG/4 ML INJECTABLE VIAL IVPUSH SCH ×2 (06:18→13:37)
[2018-11-13] MEDS ORDERED: EPOETIN ALFA 20,000 UNIT/1 ML VIAL IVPUSH ONE (08:00)
[2018-11-13] MEDS: ISOSORBIDE MONONITRATE 30 MG TAB.SR.24H (FP) PO SCH ×2 (09:40→13:37)
[2018-11-13] MEDS: TAMSULOSIN HCL 0.4 MG CAP PO SCH ×2 (09:40→13:36)
[2018-11-13] MEDS: CEFTRIAXONE 1 GM in DEXTROSE 5%-WATER - 50 ML IVPB SCH ×2 (09:41→13:38)
[2018-11-13] MEDS: NIFEdipine E.R. 30 MG TABLET (FP) PO SCH (09:41)
[2018-11-13] MEDS: FINASTERIDE 5 MG TABLET (FP) PO SCH ×2 (09:41→13:36)
[2018-11-13] MEDS: PANTOPRAZOLE 40 MG TABLET (FP) PO SCH ×3 (09:41→22:21)
[2018-11-13] MEDS: RANOLAZINE E.R. 500 MG TABLET (FP) PO SCH ×3 (09:41→22:21)
[2018-11-13] MEDS: LABETALOL HCL 100 MG TABLET (FP) PO SCH ×3 (09:41→22:21)
--- NOTE | 2018-11-13 10:01 | PN ---
Progress Note, Physician Chief Complaint: TELE: NSR, short self limited NSVT History of Present Illness: Denies cp or sob Weight is down Receiving HD - Current Medication List Current Medications: Active Medications Acetaminophen (Tylenol -) 650 mg PO Q6H PRN PRN Reason: PAIN LEVEL 1-5 Last Admin: 11/05/18 22:30 Dose: 650 mg Ergocalciferol (Drisdol -) 50,000 unit PO Mo [facility] Last Admin: 11/09/18 12:00 Dose: 50,000 unit Finasteride (Proscar -) 5 mg PO DAILY [facility] Last Admin: 11/13/18 09:41 Dose: Not Given Furosemide (Lasix Injection -) 40 mg IVPUSH BID@0600,1400 [facility] Last Admin: 11/13/18 06:18 Dose: 40 mg Guaifenesin (Diabetic Tussin Dm -) 5 ml PO Q6H PRN PRN Reason: COUGH Last Admin: 11/10/18 00:48 Dose: 5 ml Hydralazine HCl (Apresoline -) 50 mg PO TID [facility] Last Admin: 11/13/18 06:18 Dose: 50 mg Ceftriaxone Sodium 1 gm/ (Dextrose) 50 mls @ 100 mls/hr IVPB DAILY [facility]; Protocol Last Admin: 11/13/18 09:41 Dose: Not Given Sodium Chloride (Normal Saline -) 250 mls @ 3,000 mls/hr IV PRN PRN PRN Reason: Hypotension during Dialysis Sodium Chloride (Normal Saline -) 250 mls @ 3,000 mls/hr IV PRN PRN PRN Reason: Hypotension during Dialysis Stop: 11/13/18 13:53 Insulin Aspart (Novolog Vial Sliding Scale -) 1 vial SQ TIDAC [facility]; Protocol Last Admin: 11/13/18 06:18 Dose: 2 units Isosorbide Mononitrate (Imdur -) 30 mg PO DAILY [facility] Last Admin: 11/13/18 09:40 Dose: Not Given Labetalol HCl (Normodyne -) 300 mg PO BID [facility] Last Admin: 11/13/18 09:41 Dose: Not Given Nifedipine (Procardia Xl -) 30 mg PO DAILY [facility] Last Admin: 11/13/18 09:41 Dose: Not Given Pantoprazole Sodium (Protonix -) 40 mg PO DAILY [facility] Last Admin: 11/13/18 09:41 Dose: Not Given Ranolazine (Ranexa -) 500 mg PO BID [facility] Last Admin: 11/13/18 09:41 Dose: Not Given Tamsulosin HCl (Flomax -) 0.8 mg PO DAILY@0830 [facility] Last Admin: 11/13/18 09:40 Dose: Not Given - Objective Vital Signs: Vital Signs Temperature 98.2 F 11/13/18 06:00 Pulse Rate 71 11/13/18 06:00 Respiratory Rate 20 11/13/18 06:00 Blood Pressure 137/63 11/13/18 06:00 O2 Sat by Pulse Oximetry (%) 100 11/12/18 20:35 Constitutional: Yes: No Distress, Calm Eyes: Yes: Conjunctiva Clear, EOM Intact Cardiovascular: Yes: Regular Rate and Rhythm Respiratory: Yes: CTA Bilaterally Gastrointestinal: Yes: Soft, Abdomen, Obese Edema: Yes Edema: LLE: 2+, RLE: 2+ Neurological: Yes: Alert, Oriented ...Motor Strength: WNL Labs: CBC, BMP 11/13/18 08:00 11/13/18 08:00 INR, PTT INR 1.49 (0.83-1.09) H 11/11/18 09:23 Microbiology Laboratory Tests 11/12/18 11/12/18 05:30 06:45 WBC 25.8 H Hgb 7.6 L Plt Count 405 Sodium 137 Potassium 4.0 BUN 72 H Creatinine 3.2 H - ....Imaging EKG: Image Reviewed Assessment/Plan Assessment/Plan 1. Acute systolic HF exacerbation: - EF 40-45% - cont labetolol, not on ACEI/ARB for CKD - continue hydralzine and imdur. - Hypoalbuminemia may also be contributing to edema - edema improving with HD, weight down, volume management per renal 2. CKD - renal following - holding aspirin and plavix for kidney bx - HD per renal 3. CAD: - s/p FER most recently 09/2017, 10/2017 - on aspirin and plavix, holding for planned kidney bx 4. HTN: - stable
[2018-11-13 10:12] LABS: BASO % 0.2 % (0-2.0); EOS % 0.4 % (0-4.5); HEMATOCRIT 21.1 % (35.4-49); LYMPH % 3.4 % (8-40); MCH 28.1 pg (25.7-33.7); MCHC 31.5 g/dl (32.0-35.9); MEAN CELL VOLUME 89.4 fl (80-96); MEAN PLT VOLUME 7.4 fl (7.5-11.1); MONO % 5.8 % (3.8-10.2); NEUT % 90.2 % (42.8-82.8); PLATELET COUNT 374 K/MM3 (134-434); RBC 2.36 M/mm3 (4.00-5.60); RDW 14.8 % (11.9-15.9)
[2018-11-13 10:17] LABS: HEMOGLOBIN 6.6 GM/dL (11.7-16.9)
--- NOTE | 2018-11-13 10:31 | PN ---
Teaching Attending Note Name of Resident: Harsh Ponce ATTENDING PHYSICIAN STATEMENT I saw and evaluated the patient. I reviewed the resident's note and discussed the case with the resident. I agree with the resident's findings and plan as documented with exceptions below. SUBJECTIVE: Patient seen and examined. c/o weakness, no other complaints. OBJECTIVE: Vital Signs Period Temp Pulse Resp BP Sys/Lopez Pulse Ox Last 24 Hr 97.8 F-98.6 F 70-74 20-20 133-144/50-73 100 Intake & Output 11/10/18 11/11/18 11/12/18 11/13/18 23:59 23:59 23:59 23:59 Intake Total 795 560 510 Output Total 2100 Balance -1305 560 510 Weight 277 lb 265 lb 6.4 oz 263 lb General: lying in bed, weak looking, no acute distress Chest: decreased breath sounds at bases, overall decreased effort Abdomen:soft, obese, NT Extremities: 2+ pedal edema, improved from last week Musculoskeletal: no spinal tenderness, limited exam ASSESSMENT AND PLAN: 58 yom with PMX of CAD s/p Stage FER PCI 09/2017/10/2017, HTN, HLD, NIDDM, CKD stage III, (recent renal dysfunction, was planned for possible PCI), PAD s/p SFA PCI 2016 admitted with CHF -Leucocytosis, infection vs atelectasis -Bibasilar atelectasis vs PNA -Acute systolic heart failure exacerbation, on new HD -ESRD on new HD -E. Coli UTI/sepsis with bacteremia -Recurrent severe anemia -CAD s/p staged PCI 09/2017 and 10/2017 -Cardiomyopathy, suspect ischemia EF 40-45% -Left pleural effusion, suspect transudative based on current presentation -HTN -HLD -NIDDM -CKD stage III -PAD s/p SFA PCI 2016 Plan: WBC rising, follow up repeat blood cx. Send blood cx from [facility]. Straight cath for urine studies. CT Chest/A/P noted. Discussed with Dr. Sandra, follow up recs. Ceftriaxone day 8 Ongoing HD. Recurrent anemia today, suboptimal response to tranfuse. For 2 units PRBC with HD today. GI input noted, anticipate EGD/colonoscopy once infection concerns improved. Lasix 40 mg IV BID, continue per renal Strict I/Os adn daily weights. Renal biopsy on hold today given worsening leucocytosis. Cardiology input appreciated. RHC per clinical course. Delgado d/kaylee. Continue flomax/finasteride. Renal/Bladder US noted. Encourage OOB and incentive spirometry. ASA/plavix on hold for renal biopsy. LUE duplex neg for DVT Continue Labetalol/hydralazine/nifedipine/ranexa/Imdur. ISS, diabetic diet DVTPPX SCDs given recurrent anemia and concerns for GI bleed PT eval, encourage OOB Dispo pending clinical improvement. May need transfer to [facility] if fails to improve. Plan discussed with patient and nursing, all questions answered. Care co-ordinated with infectious disease, GI and nephrology.
--- NOTE | 2018-11-13 13:17 | PN.GI ---
GI Progress Note Subjective: No acute events No overt bleeding reported No BM today B/L pleural effusions/PNA and ? L4 osteomyelitis noted on CT C/A/P - Objective Vital Signs: Vital Signs Temperature 98.1 F 11/13/18 12:20 Pulse Rate 75 11/13/18 12:20 Respiratory Rate 18 11/13/18 12:20 Blood Pressure 149/74 11/13/18 12:20 O2 Sat by Pulse Oximetry (%) 100 11/12/18 20:35 Constitutional: Calm Eyes: No: Sclera Icterus Cardiovascular: Yes: Regular Rate and Rhythm, Murmur Respiratory: Yes: Diminished (at bases bilaterally) Gastrointestinal Inspection: No: Distention ...Auscultate: Yes: Normoactive Bowel Sounds ...Palpate: Yes: Soft. No: Hepatomegaly, Splenomegaly ...Percussion: No: Tympanitic Edema: Yes Labs: CBC, BMP 11/13/18 09:30 11/13/18 08:00 INR, PTT INR 1.49 (0.83-1.09) H 11/11/18 09:23 Problem List - Problems (1) Anemia Assessment/Plan: No overt bleed. Noted guaiac + No overt bleeding an remains hemodynamically stable If continued dropping CBC and patient stable from pulmonary standpoint, would plan for EGD on Friday to exclude upper GI source protonix 40mg PO BID for now Code(s): D64.9 - ANEMIA, UNSPECIFIED Qualifiers: Anemia type: unspecified type Qualified Code(s): D64.9 - Anemia, unspecified
[2018-11-13] MEDS ORDERED: cefTRIAXone SODIUM 1 GM VIAL ONE ×2 (13:26→16:35)
[2018-11-13] MEDS ORDERED: DEXTROSE 5%-WATER - 50 ML IVPB ONE (13:26)
[2018-11-13] MEDS: POLYETHYLENE GLYCOL 3350 119 GM BTL PO SCH (13:54)
[2018-11-13 14:20] LABS: ANISOCYTOSIS 1+; MACROCYTOSIS 0; PLATELET ESTIMATE NORMAL
[2018-11-13 14:45] LABS: ALBUMIN 1.9 g/dl (3.4-5.0); BILIRUBIN,TOTAL 0.9 mg/dL (0.2-1); CALCIUM 7.9 mg/dL (8.5-10.1); CREATININE 2.8 mg/dL (0.55-1.3); POTASSIUM 3.4 mmol/L (3.5-5.1); TOT PROT 5.8 g/dl (6.4-8.2)
[2018-11-13] MEDS ORDERED: SODIUM CHLORIDE 250 ML IV PRN (15:19)
--- NOTE | 2018-11-13 15:19 | PN ---
Physical Exam: SUBJECTIVE: Patient seen and examined at bedside. Says he feels "blessed". No complaints otherwise. OBJECTIVE: Vital Signs Temperature 98.1 F 11/13/18 12:20 Pulse Rate 75 11/13/18 12:20 Respiratory Rate 18 11/13/18 12:20 Blood Pressure 149/74 11/13/18 12:20 O2 Sat by Pulse Oximetry (%) 100 11/12/18 20:35 GENERAL: The patient is awake, alert, and fully oriented, in no acute distress. ENT: Ears normal, nares patent LUNGS: Poor inspiratory effort, decreased breath sounds at bases. HEART: Regular rate and rhythm, S1, S2 without murmur, rub or gallop. ABDOMEN: Soft, nontender, nondistended, normoactive bowel sounds EXTREMITIES: warm, well-perfused, 2+ b/l pitting edema. NEUROLOGICAL: Cranial nerves II through XII grossly intact. PSYCH: Flat affect SKIN: Warm, dry Laboratory Results - last 24 hr 11/11/18 11/12/18 11/13/18 11:10 17:48 06:03 WBC Corrected WBC (auto) RBC Hgb Hct MCV MCH MCHC RDW Plt Count MPV Absolute Neuts (auto) Neutrophils % Neutrophils % (Manual) Band Neutrophils % Lymphocytes % Lymphocytes % (Manual) Monocytes % Monocytes % (Manual) Eosinophils % Eosinophils % (Manual) Basophils % Basophils % (Manual) Myelocytes % (Man) Promyelocytes % (Man) Blast Cells % (Manual) Nucleated RBC % Metamyelocytes Hypochromia Platelet Estimate Platelet Comment Polychromasia Poikilocytosis Anisocytosis Microcytosis Macrocytosis Sodium Potassium Chloride Carbon Dioxide Anion Gap BUN Creatinine Est GFR (CKD-EPI)AfAm Est GFR (CKD-EPI)NonAf POC Glucometer 178 177 Random Glucose Calcium Phosphorus Magnesium Total Bilirubin AST ALT Alkaline Phosphatase Total Protein Albumin Blood Type O NEGATIVE Antibody Screen Negative Crossmatch See Detail 11/13/18 11/13/18 11/13/18 08:00 08:00 09:30 WBC Cancelled 28.0 H Corrected WBC (auto) Cancelled RBC Cancelled 2.36 L Hgb Cancelled 6.6 L* Hct Cancelled 21.1 L MCV Cancelled 89.4 MCH Cancelled 28.1 MCHC Cancelled 31.5 L RDW Cancelled 14.8 Plt Count Cancelled 374 MPV Cancelled 7.4 L Absolute Neuts (auto) Cancelled 25.3 H Neutrophils % Cancelled 90.2 H Neutrophils % (Manual) 87.1 H Band Neutrophils % 2.0 Lymphocytes % Cancelled 3.4 L Lymphocytes % (Manual) 5.9 L D Monocytes % Cancelled 5.8 Monocytes % (Manual) 2 L Eosinophils % Cancelled 0.4 Eosinophils % (Manual) 1.0 Basophils % Cancelled 0.2 Basophils % (Manual) 0.0 Myelocytes % (Man) 1 D Promyelocytes % (Man) 0 Blast Cells % (Manual) 0 Nucleated RBC % Cancelled 0 Metamyelocytes 1 D Hypochromia 2+ Platelet Estimate Cancelled Normal Platelet Comment Cancelled Polychromasia 1+ Poikilocytosis 1+ Anisocytosis 1+ Microcytosis 1+ Macrocytosis 0 Sodium Cancelled Potassium Cancelled Chloride Cancelled Carbon Dioxide Cancelled Anion Gap Cancelled BUN Cancelled Creatinine Cancelled Est GFR (CKD-EPI)AfAm Cancelled Est GFR (CKD-EPI)NonAf Cancelled POC Glucometer Random Glucose Cancelled Calcium Cancelled Phosphorus Cancelled Magnesium Cancelled Total Bilirubin Cancelled AST Cancelled ALT Cancelled Alkaline Phosphatase Cancelled Total Protein Cancelled Albumin Cancelled Blood Type Antibody Screen Crossmatch 11/13/18 13:34 WBC Corrected WBC (auto) RBC Hgb Hct MCV MCH MCHC RDW Plt Count MPV Absolute Neuts (auto) Neutrophils % Neutrophils % (Manual) Band Neutrophils % Lymphocytes % Lymphocytes % (Manual) Monocytes % Monocytes % (Manual) Eosinophils % Eosinophils % (Manual) Basophils % Basophils % (Manual) Myelocytes % (Man) Promyelocytes % (Man) Blast Cells % (Manual) Nucleated RBC % Metamyelocytes Hypochromia Platelet Estimate Platelet Comment Polychromasia Poikilocytosis Anisocytosis Microcytosis Macrocytosis Sodium 139 Potassium 3.4 L Chloride 100 Carbon Dioxide 31 Anion Gap 8 BUN 55 H Creatinine 2.8 H Est GFR (CKD-EPI)AfAm 27.76 Est GFR (CKD-EPI)NonAf 23.95 POC Glucometer Random Glucose 167 H Calcium 7.9 L Phosphorus Magnesium Total Bilirubin 0.9 AST 47 H ALT 52 Alkaline Phosphatase 145 H Total Protein 5.8 L Albumin 1.9 L Blood Type Antibody Screen Crossmatch Active Medications Generic Name Dose Route Start Last Admin Trade Name Freq PRN Reason Stop Dose Admin Acetaminophen 650 mg 10/28/18 16:55 11/05/18 22:30 Tylenol - PO 650 mg Q6H PRN Administration PAIN LEVEL 1-5 Ergocalciferol 50,000 unit 10/26/18 12:00 11/09/18 12:00 Drisdol - PO 50,000 unit Mo [facility] Administration Finasteride 5 mg 11/03/18 14:30 11/13/18 13:36 Proscar - PO 5 mg DAILY [facility] Administration Furosemide 40 mg 11/12/18 06:00 11/13/18 13:37 Lasix Injection - IVPUSH 40 mg BID@0600,1400 [facility] Administration Guaifenesin 5 ml 10/29/18 20:47 11/10/18 00:48 Diabetic Tussin Dm - PO 5 ml Q6H PRN Administration COUGH Hydralazine HCl 50 mg 10/26/18 14:00 11/13/18 13:37 Apresoline - PO 50 mg TID [facility] Administration Ceftriaxone Sodium 1 gm/ 50 mls @ 100 mls/hr 11/09/18 10:00 11/13/18 13:38 Dextrose IVPB 100 mls/hr DAILY [facility] Administration Protocol Sodium Chloride 250 mls @ 3,000 mls/hr 11/09/18 15:19 Normal Saline - IV PRN PRN Hypotension during Dialysis Insulin Aspart 1 vial 10/26/18 16:30 11/13/18 11:53 Novolog Vial Sliding Scale - SQ Not Given TIDAC [facility] Protocol Isosorbide Mononitrate 30 mg 10/27/18 10:00 11/13/18 13:37 Imdur - PO 30 mg DAILY [facility] Administration Labetalol HCl 300 mg 10/26/18 22:00 11/13/18 13:37 Normodyne - PO 300 mg BID [facility] Administration Nifedipine 30 mg 11/10/18 11:45 11/13/18 09:41 Procardia Xl - PO Not Given DAILY [facility] Pantoprazole Sodium 40 mg 11/13/18 22:00 Protonix - PO BID [facility] Polyethylene Glycol 17 gm 11/13/18 13:30 11/13/18 13:54 Miralax (For Daily Use) - PO 17 gm DAILY [facility] Administration Ranolazine 500 mg 10/26/18 22:00 11/13/18 13:36 Ranexa - PO 500 mg BID [facility] Administration Tamsulosin HCl 0.8 mg 11/04/18 08:30 11/13/18 13:36 Flomax - PO 0.8 mg DAILY@0830 [facility] Administration ASSESSMENT/PLAN: 58 y/o M w/PMH of CAD, HTN, HLD, NIDDM, CKD stage III, PAD admitted for CHF now requiring dialysis for ESRD -CHF exacerbation -lasix 40 mg IV bid -monitor i/os, daily weights -Leukocytosis -bibasilar atelectasis vs PNA -UTI with E. Coli -c/w ceftriaxone (day 8) -ID following -Recurrent Anemia -2 units PRBC during dialysis today -Monitor response -GI following; FOBT+ -EGD/colonoscopy once improved -ESRD -on HD -nephrology following -kidney biopsy once improved -CAD -c/w ranexa -HTN -c/w hzn, labetalol, imdur, nifedipine -BPH -c/w flomax, finasteride -DVT ppx -SCDs -FEN -getting 2 units PRBC -Monitor electrolytes -renal diet -Dispo: monitor on tele Visit type - Emergency Visit Emergency Visit: Yes ED Registration Date: 10/26/18 Care time: The patient presented to the Emergency Department on the above date and was hospitalized for further evaluation of their emergent condition. - New Patient This patient is new to me today: Yes Date on this admission: 11/13/18 - Critical Care Critical Care patient: No
--- NOTE | 2018-11-13 15:21 | PN ---
Progress Note (short form) - Note Progress Note: Renal follow up for CKD Pt seen and examined at the bedside awake and alert s/p HD this am with 4L UF BP stable pt w/o acute complaints denies sob, cp, abd apin body aches improved Vital Signs Temperature 98.7 F 11/13/18 14:00 Pulse Rate 77 11/13/18 14:00 Respiratory Rate 18 11/13/18 12:20 Blood Pressure 145/69 11/13/18 14:00 O2 Sat by Pulse Oximetry (%) 100 11/12/18 20:35 Intake & Output 11/10/18 11/11/18 11/12/18 11/13/18 23:59 23:59 23:59 23:59 Intake Total 795 560 510 420 Output Total 2100 Balance -1305 560 510 420 Weight 125.645 kg 120.383 kg 119.295 kg NAD RRR, no M/R Dec BS at lung bases, + rales soft obese, NT/ND + upper extremity edema ++ bilateral LE edema CBC, BMP 11/13/18 09:30 11/13/18 13:34 Current Medications Acetaminophen (Tylenol -) 650 mg PO Q6H PRN PRN Reason: PAIN LEVEL 1-5 Last Admin: 11/05/18 22:30 Dose: 650 mg Ergocalciferol (Drisdol -) 50,000 unit PO Mo [facility] Last Admin: 11/09/18 12:00 Dose: 50,000 unit Finasteride (Proscar -) 5 mg PO DAILY [facility] Last Admin: 11/13/18 13:36 Dose: 5 mg Furosemide (Lasix Injection -) 40 mg IVPUSH BID@0600,1400 [facility] Last Admin: 11/13/18 13:37 Dose: 40 mg Guaifenesin (Diabetic Tussin Dm -) 5 ml PO Q6H PRN PRN Reason: COUGH Last Admin: 11/10/18 00:48 Dose: 5 ml Hydralazine HCl (Apresoline -) 50 mg PO TID [facility] Last Admin: 11/13/18 13:37 Dose: 50 mg Ceftriaxone Sodium 1 gm/ (Dextrose) 50 mls @ 100 mls/hr IVPB DAILY [facility]; Protocol Last Admin: 11/13/18 13:38 Dose: 100 mls/hr Sodium Chloride (Normal Saline -) 250 mls @ 3,000 mls/hr IV PRN PRN PRN Reason: Hypotension during Dialysis Sodium Chloride (Normal Saline -) 250 mls @ 3,000 mls/hr IV PRN PRN PRN Reason: Hypotension during Dialysis Stop: 11/14/18 15:19 Insulin Aspart (Novolog Vial Sliding Scale -) 1 vial SQ TIDAC [facility]; Protocol Last Admin: 11/13/18 11:53 Dose: Not Given Isosorbide Mononitrate (Imdur -) 30 mg PO DAILY [facility] Last Admin: 11/13/18 13:37 Dose: 30 mg Labetalol HCl (Normodyne -) 300 mg PO BID [facility] Last Admin: 11/13/18 13:37 Dose: 300 mg Nifedipine (Procardia Xl -) 30 mg PO DAILY [facility] Last Admin: 11/13/18 09:41 Dose: Not Given Pantoprazole Sodium (Protonix -) 40 mg PO BID [facility] Polyethylene Glycol (Miralax (For Daily Use) -) 17 gm PO DAILY [facility] Last Admin: 11/13/18 13:54 Dose: 17 gm Ranolazine (Ranexa -) 500 mg PO BID [facility] Last Admin: 11/13/18 13:36 Dose: 500 mg Tamsulosin HCl (Flomax -) 0.8 mg PO DAILY@0830 [facility] Last Admin: 11/13/18 13:36 Dose: 0.8 mg 58 year old gentleman with hx of CKD with proteinuria, CHF, CAD s/p PCI, Hypertension, hyperlipidemia who preesnted from home with LE swelling and sob and admitted for CHF exacerbation with Cr of 2.4-2.6. #CHF exacerbation/gross fluid overload #GABI w/o clear etiology #Proteinuria (nephrotic range proteinuira) #CAD #HLD s/p HD today with 2 RPBC transfusion will plan for isolated UF tomorrow cultures collected from HD catheter as well today monitor cultures CT Chest/Abd/Pelvis noted ID following, abx as per ID GI recs noted, likely will need EGD given persistently dropping Hgb continue supportive care will need tunneled HD catheter placed next week Thank you Mansoor Quiroz DO
[2018-11-13 17:21] LABS: EPI CELLS 14.3 /HPF (0-5/HPF); HYALINE CASTS 25 /lpf (0-8); URINE APPEARANCE CLOUDY; URINE BILIRUBIN NEGATIVE (NEGATIVE); URINE COLOR DK YELLOW; URINE GLUCOSE (UA) TRACE (NEGATIVE); URINE KETONE TRACE (NEGATIVE); URINE LEUK ESTERASE 1+ (NEGATIVE); URINE NITRITE NEGATIVE (NEGATIVE); URINE PROTEIN 3+ (NEGATIVE); URINE WBC 7 /hpf (0-5)
[2018-11-13 18:20] LABS: URINE BACTERIA 2.9 /hpf (NEGATIVE); URINE RBC 15.1 /hpf (0-4)
[2018-11-13 18:21] LABS: YEAST MODERATE (NEGATIVE)
[2018-11-13] MEDS: guaiFENesin/D-M SUGAR-FREE/ACLHOL-FREE 118 ML BOTTLE PO PRN (23:39)
[2018-11-14] MEDS: INSULIN SLIDING SCALE (NOVOLOG) 1 VIAL SQ SCH ×3 (07:09→17:15)
[2018-11-14] MEDS: hydrALAZINE HCL 50 MG TABLET (FP) PO SCH ×3 (07:09→21:02)
[2018-11-14] MEDS: FUROSEMIDE 40 MG/4 ML INJECTABLE VIAL IVPUSH SCH ×2 (07:09→14:25)
[2018-11-14 07:57] LABS: BASO % 0.4 % (0-2.0); EOS % 0.7 % (0-4.5); HEMATOCRIT 23.6 % (35.4-49); HEMOGLOBIN 7.4 GM/dL (11.7-16.9); LYMPH % 5.3 % (8-40); MCH 27.9 pg (25.7-33.7); MCHC 31.4 g/dl (32.0-35.9); MEAN CELL VOLUME 88.7 fl (80-96); MEAN PLT VOLUME 7.4 fl (7.5-11.1); MONO % 8.5 % (3.8-10.2); NEUT % 85.1 % (42.8-82.8); PLATELET COUNT 368 K/MM3 (134-434); RBC 2.66 M/mm3 (4.00-5.60); RDW 15.7 % (11.9-15.9); WHITE BLOOD COUNT 21.4 K/mm3 (4.0-10.0)
[2018-11-14] MEDS ORDERED: cefTRIAXone SODIUM 1 GM VIAL ONE (08:20)
[2018-11-14] MEDS ORDERED: DEXTROSE 5%-WATER - 50 ML IVPB ONE (08:21)
[2018-11-14 08:22] LABS: ALBUMIN 1.7 g/dl (3.4-5.0); BILIRUBIN,TOTAL 0.7 mg/dL (0.2-1); CALCIUM 7.4 mg/dL (8.5-10.1); CREATININE 3.6 mg/dL (0.55-1.3); PHOSPHOROUS 2.2 mg/dL (2.5-4.9); POTASSIUM 3.8 mmol/L (3.5-5.1); TOT PROT 5.4 g/dl (6.4-8.2)
[2018-11-14] MEDS: TAMSULOSIN HCL 0.4 MG CAP PO SCH (08:57)
[2018-11-14] MEDS: LABETALOL HCL 100 MG TABLET (FP) PO SCH ×2 (09:29→21:01)
[2018-11-14] MEDS: PANTOPRAZOLE 40 MG TABLET (FP) PO SCH ×2 (09:30→21:02)
[2018-11-14] MEDS: FINASTERIDE 5 MG TABLET (FP) PO SCH (09:30)
[2018-11-14] MEDS: RANOLAZINE E.R. 500 MG TABLET (FP) PO SCH ×2 (09:30→21:01)
[2018-11-14] MEDS: ISOSORBIDE MONONITRATE 30 MG TAB.SR.24H (FP) PO SCH (09:30)
[2018-11-14] MEDS: NIFEdipine E.R. 30 MG TABLET (FP) PO SCH (09:30)
[2018-11-14] MEDS: CEFTRIAXONE 1 GM in DEXTROSE 5%-WATER - 50 ML IVPB SCH (09:32)
--- NOTE | 2018-11-14 10:33 | PN ---
Progress Note (short form) - Note Progress Note: s: no chest pain, palps, dyspnea dizzy TELE: sr Current Medications Generic Name Dose Route Start Last Admin Trade Name Freq PRN Reason Stop Dose Admin Acetaminophen 650 mg 10/28/18 16:55 11/05/18 22:30 Tylenol - PO 650 mg Q6H PRN Administration PAIN LEVEL 1-5 Ergocalciferol 50,000 unit 10/26/18 12:00 11/09/18 12:00 Drisdol - PO 50,000 unit Mo [facility] Administration Finasteride 5 mg 11/03/18 14:30 11/14/18 09:30 Proscar - PO 5 mg DAILY [facility] Administration Furosemide 40 mg 11/12/18 06:00 11/14/18 07:09 Lasix Injection - IVPUSH Not Given BID@0600,1400 [facility] Guaifenesin 5 ml 10/29/18 20:47 11/13/18 23:39 Diabetic Tussin Dm - PO 5 ml Q6H PRN Administration COUGH Hydralazine HCl 50 mg 10/26/18 14:00 11/14/18 07:09 Apresoline - PO Not Given TID [facility] Ceftriaxone Sodium 1 gm/ 50 mls @ 100 mls/hr 11/09/18 10:00 11/14/18 09:32 Dextrose IVPB 100 mls/hr DAILY [facility] Administration Protocol Sodium Chloride 250 mls @ 3,000 mls/hr 11/09/18 15:19 Normal Saline - IV PRN PRN Hypotension during Dialysis Sodium Chloride 250 mls @ 3,000 mls/hr 11/13/18 15:19 Normal Saline - IV 11/14/18 15:19 PRN PRN Hypotension during Dialysis Insulin Aspart 1 vial 10/26/18 16:30 11/14/18 07:09 Novolog Vial Sliding Scale - SQ Not Given TIDAC [facility] Protocol Isosorbide Mononitrate 30 mg 10/27/18 10:00 11/14/18 09:30 Imdur - PO 30 mg DAILY [facility] Administration Labetalol HCl 300 mg 10/26/18 22:00 11/14/18 09:29 Normodyne - PO 300 mg BID [facility] Administration Nifedipine 30 mg 11/10/18 11:45 11/14/18 09:30 Procardia Xl - PO 30 mg DAILY [facility] Administration Pantoprazole Sodium 40 mg 11/13/18 22:00 11/14/18 09:30 Protonix - PO 40 mg BID [facility] Administration Polyethylene Glycol 17 gm 11/13/18 13:30 11/13/18 13:54 Miralax (For Daily Use) - PO 17 gm DAILY [facility] Administration Ranolazine 500 mg 10/26/18 22:00 11/14/18 09:30 Ranexa - PO 500 mg BID [facility] Administration Tamsulosin HCl 0.8 mg 11/04/18 08:30 11/14/18 08:57 Flomax - PO 0.8 mg DAILY@0830 [facility] Administration Vital Signs Period Temp Pulse Resp BP Sys/Lopez Pulse Ox Last 24 Hr 98.6 F-99.6 F 67-96 18-20 129-153/59-81 97 Constitutional: Yes: No Distress Cardiovascular: Yes: Regular Rate and Rhythm Respiratory: Yes: Other (decreased breath sounds at bases. No active wheezing.) Gastrointestinal: Yes: Soft, Abdomen, Obese Edema: Yes Edema: LLE: 1+, RLE: 1+ Neurological: Yes: Alert, Oriented no jaundice diaphoresis not agitated Assessment/Plan 1. Acute systolic HF exacerbation: - EF 40-45% - cont labetolol, not on ACEI/ARB for CKD - continue hydralzine and imdur. - Hypoalbuminemia may also be contributing to edema - edema improving with HD, weight down, volume management per renal 2. CKD - renal following - holding aspirin and plavix for kidney bx - HD per renal 3. CAD: - s/p FER most recently 09/2017, 10/2017 - on aspirin and plavix, holding for planned kidney bx 4. HTN: - monitor BP, can increase hydralazine if remains elevated 5. anemia: -plans for egd friday, no cardiac contraindications
[2018-11-14] MEDS: ACETAMINOPHEN 325 MG TABLET (FP) PO PRN (10:40)
[2018-11-14] MEDS: POLYETHYLENE GLYCOL 3350 119 GM BTL PO SCH (10:46)
[2018-11-14 11:02] LABS: ANISOCYTOSIS 1+; MACROCYTOSIS 0; PLATELET ESTIMATE NORMAL
--- NOTE | 2018-11-14 11:25 | PN ---
Progress Note, Physician History of Present Illness: AWAKE, LETHARGIC SUPINE IN BED AFEBRILE WBC ELEVATED 21.4 REPEAT BC OBTAINED VALENTINE CATHETER IN PLACE NO DIARRHEA BC, URINE C/S ECOLI - Current Medication List Current Medications: Active Medications Acetaminophen (Tylenol -) 650 mg PO Q6H PRN PRN Reason: PAIN LEVEL 1-5 Last Admin: 11/05/18 22:30 Dose: 650 mg Ergocalciferol (Drisdol -) 50,000 unit PO Mo [facility] Last Admin: 11/09/18 12:00 Dose: 50,000 unit Finasteride (Proscar -) 5 mg PO DAILY [facility] Last Admin: 11/14/18 09:30 Dose: 5 mg Furosemide (Lasix Injection -) 40 mg IVPUSH BID@0600,1400 [facility] Last Admin: 11/14/18 07:09 Dose: Not Given Guaifenesin (Diabetic Tussin Dm -) 5 ml PO Q6H PRN PRN Reason: COUGH Last Admin: 11/13/18 23:39 Dose: 5 ml Hydralazine HCl (Apresoline -) 50 mg PO TID [facility] Last Admin: 11/14/18 07:09 Dose: Not Given Ceftriaxone Sodium 1 gm/ (Dextrose) 50 mls @ 100 mls/hr IVPB DAILY [facility]; Protocol Last Admin: 11/14/18 09:32 Dose: 100 mls/hr Sodium Chloride (Normal Saline -) 250 mls @ 3,000 mls/hr IV PRN PRN PRN Reason: Hypotension during Dialysis Sodium Chloride (Normal Saline -) 250 mls @ 3,000 mls/hr IV PRN PRN PRN Reason: Hypotension during Dialysis Stop: 11/14/18 15:19 Insulin Aspart (Novolog Vial Sliding Scale -) 1 vial SQ TIDAC [facility]; Protocol Last Admin: 11/14/18 07:09 Dose: Not Given Isosorbide Mononitrate (Imdur -) 30 mg PO DAILY [facility] Last Admin: 11/14/18 09:30 Dose: 30 mg Labetalol HCl (Normodyne -) 300 mg PO BID [facility] Last Admin: 11/14/18 09:29 Dose: 300 mg Nifedipine (Procardia Xl -) 30 mg PO DAILY [facility] Last Admin: 11/14/18 09:30 Dose: 30 mg Pantoprazole Sodium (Protonix -) 40 mg PO BID [facility] Last Admin: 11/14/18 09:30 Dose: 40 mg Polyethylene Glycol (Miralax (For Daily Use) -) 17 gm PO DAILY [facility] Last Admin: 11/14/18 10:46 Dose: Not Given Ranolazine (Ranexa -) 500 mg PO BID [facility] Last Admin: 11/14/18 09:30 Dose: 500 mg Tamsulosin HCl (Flomax -) 0.8 mg PO DAILY@0830 [facility] Last Admin: 11/14/18 08:57 Dose: 0.8 mg - Objective Vital Signs: Vital Signs Temperature 98.8 F 11/14/18 09:47 Pulse Rate 76 11/14/18 09:47 Respiratory Rate 20 11/14/18 09:47 Blood Pressure 138/68 11/14/18 09:47 O2 Sat by Pulse Oximetry (%) 97 11/13/18 21:00 Constitutional: Yes: No Distress, Obese Cardiovascular: Yes: Regular Rate and Rhythm, S1, S2 Respiratory: Yes: Diminished Gastrointestinal: Yes: Normal Bowel Sounds, Soft. No: Tenderness Edema: Yes Labs: CBC, BMP 11/14/18 06:30 11/14/18 06:30 INR, PTT INR 1.49 (0.83-1.09) H 11/11/18 09:23 Assessment/Plan GRAM NEGATIVE BACTEREMIA/ SEPSIS UTI/ SEPSIS SECONDARY TO UTI LEUKOCYTOSIS RENAL FAILURE ANEMIA ? GI BLEED HX URINARY RETENTION DAY# 10 IV ANTIBIOTICS SOURCE OF LEUKOCYTOSIS NOT CLEAR ? LEUKEMOID RXN FROM POSSIBLE GL BLEED NO DIARRHEA TO SUGGEST C DIFF CT CHEST +B/L EFFUSIONS, COMPRESSIVE ATELECTASIS AWAIT REPEAT BC CONTINUE CEFTRIAXONE
--- NOTE | 2018-11-14 11:51 | PN ---
Physical Exam: SUBJECTIVE: Patient seen and examined, no complaints. OBJECTIVE: Vital Signs Period Temp Pulse Resp BP Sys/Lopez Pulse Ox Last 24 Hr 98.6 F-99.6 F 72-96 18-20 129-150/60-81 97 Intake & Output 11/11/18 11/12/18 11/13/18 11/14/18 23:59 23:59 23:59 23:59 Intake Total 560 510 780 300 Output Total 50 Balance 560 510 730 300 Weight 265 lb 6.4 oz 263 lb 265 lb 3.2 oz GENERAL: lying in bed, no acute distress Neck: soft, supple Chest: poor effort, basilar rales Abdomen:soft, obese, NT throughout Extremities: 2+ pedal edema, overall improved from last week Psych: flat affect Laboratory Results - last 24 hr 11/12/18 11/13/18 11/13/18 17:48 09:30 13:34 WBC RBC Hgb Hct MCV MCH MCHC RDW Plt Count MPV Absolute Neuts (auto) Neutrophils % Neutrophils % (Manual) 87.1 H Band Neutrophils % 2.0 Lymphocytes % Lymphocytes % (Manual) 5.9 L D Monocytes % Monocytes % (Manual) 2 L Eosinophils % Eosinophils % (Manual) 1.0 Basophils % Basophils % (Manual) 0.0 Myelocytes % (Man) 1 D Promyelocytes % (Man) 0 Blast Cells % (Manual) 0 Nucleated RBC % Metamyelocytes 1 D Hypochromia 2+ Platelet Estimate Normal Platelet Comment Polychromasia 1+ Poikilocytosis 1+ Anisocytosis 1+ Microcytosis 1+ Macrocytosis 0 Sodium 139 Potassium 3.4 L Chloride 100 Carbon Dioxide 31 Anion Gap 8 BUN 55 H Creatinine 2.8 H Est GFR (CKD-EPI)AfAm 27.76 Est GFR (CKD-EPI)NonAf 23.95 POC Glucometer 178 Random Glucose 167 H Calcium 7.9 L Phosphorus Total Bilirubin 0.9 AST 47 H ALT 52 Alkaline Phosphatase 145 H Total Protein 5.8 L Albumin 1.9 L Urine Color Urine Appearance Urine pH Ur Specific [place] Urine Protein Urine Glucose (UA) Urine Ketones Urine Blood Urine Nitrite Urine Bilirubin Urine Urobilinogen Ur Leukocyte Esterase Urine WBC (Auto) Urine RBC (Auto) Urine Casts (Auto) U Epithel Cells (Auto) Urine Bacteria (Auto) Urine Yeast (Auto) 11/13/18 11/13/1819 15:45 17:00 06:09 WBC RBC Hgb Hct MCV MCH MCHC RDW Plt Count MPV Absolute Neuts (auto) Neutrophils % Neutrophils % (Manual) Band Neutrophils % Lymphocytes % Lymphocytes % (Manual) Monocytes % Monocytes % (Manual) Eosinophils % Eosinophils % (Manual) Basophils % Basophils % (Manual) Myelocytes % (Man) Promyelocytes % (Man) Blast Cells % (Manual) Nucleated RBC % Metamyelocytes Hypochromia Platelet Estimate Platelet Comment Polychromasia Poikilocytosis Anisocytosis Microcytosis Macrocytosis Sodium Potassium Chloride Carbon Dioxide Anion Gap BUN Creatinine Est GFR (CKD-EPI)AfAm Est GFR (CKD-EPI)NonAf POC Glucometer 194 168 Random Glucose Calcium Phosphorus Total Bilirubin AST ALT Alkaline Phosphatase Total Protein Albumin Urine Color Dk yellow Urine Appearance Cloudy Urine pH 5.0 Ur Specific [place] 1.020 Urine Protein 3+ H Urine Glucose (UA) Trace Urine Ketones Trace H Urine Blood Trace Urine Nitrite Negative Urine Bilirubin Negative Urine Urobilinogen 1.0 Ur Leukocyte Esterase 1+ H Urine WBC (Auto) 7 Urine RBC (Auto) 15.1 Urine Casts (Auto) 25 U Epithel Cells (Auto) 14.3 Urine Bacteria (Auto) 2.9 Urine Yeast (Auto) Moderate 11/14/18 11/14/18 11/14/18 06:30 06:30 11:48 WBC 21.4 H RBC 2.66 L Hgb 7.4 L Hct 23.6 L MCV 88.7 MCH 27.9 MCHC 31.4 L RDW 15.7 Plt Count 368 MPV 7.4 L Absolute Neuts (auto) 18.2 H Neutrophils % 85.1 H Neutrophils % (Manual) 86.4 H Band Neutrophils % 0.0 Lymphocytes % 5.3 L D Lymphocytes % (Manual) 7.3 L D Monocytes % 8.5 Monocytes % (Manual) 4 D Eosinophils % 0.7 Eosinophils % (Manual) 0.0 D Basophils % 0.4 Basophils % (Manual) 0.0 Myelocytes % (Man) 2 D Promyelocytes % (Man) 0 Blast Cells % (Manual) 0 Nucleated RBC % 0 Metamyelocytes 0 D Hypochromia 0 Platelet Estimate Normal Platelet Comment Present Polychromasia 2+ Poikilocytosis 0 Anisocytosis 1+ Microcytosis 0 Macrocytosis 0 Sodium 139 Potassium 3.8 Chloride 100 Carbon Dioxide 31 Anion Gap 8 BUN 70 H Creatinine 3.6 H Est GFR (CKD-EPI)AfAm 20.49 Est GFR (CKD-EPI)NonAf 17.68 POC Glucometer 186 Random Glucose 155 H Calcium 7.4 L Phosphorus 2.2 L Total Bilirubin 0.7 AST 46 H ALT 55 Alkaline Phosphatase 157 H Total Protein 5.4 L Albumin 1.7 L Urine Color Urine Appearance Urine pH Ur Specific [place] Urine Protein Urine Glucose (UA) Urine Ketones Urine Blood Urine Nitrite Urine Bilirubin Urine Urobilinogen Ur Leukocyte Esterase Urine WBC (Auto) Urine RBC (Auto) Urine Casts (Auto) U Epithel Cells (Auto) Urine Bacteria (Auto) Urine Yeast (Auto) Active Medications Generic Name Dose Route Start Last Admin Trade Name Freq PRN Reason Stop Dose Admin Acetaminophen 650 mg 10/28/18 16:55 11/05/18 22:30 Tylenol - PO 650 mg Q6H PRN Administration PAIN LEVEL 1-5 Ergocalciferol 50,000 unit 10/26/18 12:00 11/09/18 12:00 Drisdol - PO 50,000 unit Mo SANGEETHA Administration Finasteride 5 mg 11/03/18 14:30 11/14/18 09:30 Proscar - PO 5 mg DAILY SANGEETHA Administration Furosemide 40 mg 11/12/18 06:00 11/14/18 07:09 Lasix Injection - IVPUSH Not Given BID@0600,1400 SANGEETHA Guaifenesin 5 ml 10/29/18 20:47 11/13/18 23:39 Diabetic Tussin Dm - PO 5 ml Q6H PRN Administration COUGH Hydralazine HCl 50 mg 10/26/18 14:00 11/14/18 07:09 Apresoline - PO Not Given TID SANGEETHA Ceftriaxone Sodium 1 gm/ 50 mls @ 100 mls/hr 11/09/18 10:00 11/14/18 09:32 Dextrose IVPB 100 mls/hr DAILY SANGEETHA Administration Protocol Sodium Chloride 250 mls @ 3,000 mls/hr 11/09/18 15:19 Normal Saline - IV PRN PRN Hypotension during Dialysis Sodium Chloride 250 mls @ 3,000 mls/hr 11/13/18 15:19 Normal Saline - IV 11/14/18 15:19 PRN PRN Hypotension during Dialysis Insulin Aspart 1 vial 10/26/18 16:30 11/14/18 11:49 Novolog Vial Sliding Scale - SQ 2 units TIDAC SANGEETHA Administration Protocol Isosorbide Mononitrate 30 mg 10/27/18 10:00 11/14/18 09:30 Imdur - PO 30 mg DAILY SANGEETHA Administration Labetalol HCl 300 mg 10/26/18 22:00 11/14/18 09:29 Normodyne - PO 300 mg BID SANGEETHA Administration Nifedipine 30 mg 11/10/18 11:45 11/14/18 09:30 Procardia Xl - PO 30 mg DAILY SANGEETHA Administration Pantoprazole Sodium 40 mg 11/13/18 22:00 11/14/18 09:30 Protonix - PO 40 mg BID SANGEETHA Administration Polyethylene Glycol 17 gm 11/13/18 13:30 11/14/18 10:46 Miralax (For Daily Use) - PO Not Given DAILY SANGEETHA Ranolazine 500 mg 10/26/18 22:00 11/14/18 09:30 Ranexa - PO 500 mg BID SANGEETHA Administration Tamsulosin HCl 0.8 mg 11/04/18 08:30 11/14/18 08:57 Flomax - PO 0.8 mg DAILY@0830 SANGEETHA Administration Microbiology 11/13/18 10:00 Blood - Shiley Catheter Blood Culture - Preliminary NO GROWTH OBTAINED AFTER 24 HOURS, INCUBATION TO CONTINUE FOR 4 DAYS. 11/12/18 12:51 Blood - Peripheral Venous Blood Culture - Preliminary NO GROWTH OBTAINED AFTER 24 HOURS, INCUBATION TO CONTINUE FOR 4 DAYS. 11/12/18 12:45 Blood - Peripheral Venous Blood Culture - Preliminary NO GROWTH OBTAINED AFTER 24 HOURS, INCUBATION TO CONTINUE FOR 4 DAYS. 11/07/18 07:35 Blood - Peripheral Venous Blood Culture - Final NO GROWTH AFTER 5 DAYS INCUBATION 11/07/18 08:00 Blood - Peripheral Venous Blood Culture - Final NO GROWTH AFTER 5 DAYS INCUBATION 11/04/18 13:00 Blood - Peripheral Venous Blood Culture - Final NO GROWTH AFTER 5 DAYS INCUBATION 11/05/18 04:10 Urine - Urine - Catheterized Urine Culture - Final Escherichia Coli Strep Agalactiae Group B 11/04/18 12:53 Blood - Peripheral Venous Blood Culture - Final Escherichia Coli ASSESSMENT/PLAN: 58 yom with PMX of CAD s/p Stage FER PCI 09/2017/10/2017, HTN, HLD, NIDDM, CKD stage III, (recent renal dysfunction, was planned for possible PCI), PAD s/p SFA PCI 2016 admitted with CHF -Leucocytosis, infection vs atelectasis, r/o GI bleed -Bibasilar atelectasis vs PNA -Acute systolic heart failure exacerbation, on new HD -ESRD on new HD -E. Coli UTI/sepsis with bacteremia -Recurrent severe anemia -CAD s/p staged PCI 09/2017 and 10/2017 -Cardiomyopathy, suspect ischemia EF 40-45% -Left pleural effusion, suspect transudative based on current presentation -HTN -HLD -NIDDM -CKD stage III -PAD s/p SFA PCI 2016 Plan: WBC improved Follow up peripheral/Shiley blood cx. CT Chest/A/P noted. ID input noted. Ceftriaxone day 9 Ongoing HD. Continues to be anemic inspite of multilpe PRBC, inappropriate response. Discuss with GI for possible EGD/colonoscopy. Monitor closely. Lasix 40 mg IV BID, continue per renal Strict I/Os and daily weights. Renal biopsy on hold given active infection/bleed concerns Cardiology input appreciated. RHC per clinical course. Delgado d/kaylee. Continue flomax/finasteride. Renal/Bladder US noted. Encourage OOB and incentive spirometry. ASA/plavix on hold for renal biopsy, now with bleed concerns. LUE duplex neg for DVT Continue Labetalol/hydralazine/nifedipine/ranexa/Imdur. ISS, diabetic diet DVTPPX SCDs given recurrent anemia and concerns for GI bleed PT eval, encourage OOB Dispo pending clinical improvement. Plan discussed with patient and nursing, all questions answered. Visit type - Emergency Visit Emergency Visit: Yes ED Registration Date: 10/26/18 Care time: The patient presented to the Emergency Department on the above date and was hospitalized for further evaluation of their emergent condition. - New Patient This patient is new to me today: No - Critical Care Critical Care patient: No - Discharge Referral Referred to [facility] Med P.C.: No
--- NOTE | 2018-11-14 12:31 | CONSULT ---
Consult Consult Specialty:: Hematology Referred by:: Medicine Reason for Consultation:: Anemia - History of Present Illness Chief Complaint: Patient with complex medical history including CKD, CHF, DM, HTN, admitted with CHF exacerbation. Progressive detreiorationin renal function noted during admission, prompting initiation of GEODETIC COMPUTATOR, and planned renal biopsy. Biospy postponed due to anemia, transfused 2 units with unsatisactory response. History of Present Illness: As above. Patient has no knowledge of prior interventions or investigations for anemia. No prior transfusions. Denies BRBPR, melena, hematuria. Seen by GI, outpatient endoscopy offered. Hemeoccult positive 1 of 2, on serial days. Review of records reveals baseline normocytic anemia - Hb 7-10 range, since 2017 at least. No family history of anemia. 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: CVA Cardio/Vascular: Yes: CAD, CHF, HTN, Other (PAD) Renal/: Yes: Renal Inusuff Endocrine: Yes: Diabetes Mellitus (DM II) - Past Surgical History Past Surgical History: Yes: Amputation (Left great toe) Additional Surgical History: placement of dialysis catheter - Alcohol/Substance Use Hx Alcohol Use: Yes (heavy, in past) History of Substance Use: reports: Cocaine (intranasal, multiple years prior), Marijuana (multiple years prior) - Smoking History Smoking history: Former smoker Have you smoked in the past 12 months: No - Social History Usual Living Arrangement: With Spouse ADL: Independent 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[employer], 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 [place] History of Recent Travel: No Home Medications - Allergies Allergies/Adverse Reactions: Allergies Allergy/AdvReac Type Severity Reaction Status Date / Time No Known Allergies Allergy Verified 10/26/18 09:08 - Home Medications Home Medications: Ambulatory Orders Glipizide [Glucotrol] 5 mg PO BID 04/08/17 Atorvastatin Ca [Lipitor] 40 mg PO HS 09/25/18 Ergocalciferol (Vitamin D2) [Vitamin D2] 50,000 unit PO WEEKLY 09/25/18 Tamsulosin HCl [Flomax] 0.4 mg PO DAILY 09/25/18 Furosemide [Lasix -] 80 mg PO DAILY 30 Days #60 tablet 10/07/18 Labetalol HCl [Normodyne -] 300 mg PO BID 30 Days #180 tablet 10/07/18 hydrALAZINE HCL [Apresoline -] 50 mg PO TID 30 Days #90 tablet 10/07/18 Aspirin [Aspirin EC] 81 mg PO DAILY 10/11/18 Clopidogrel Bisulfate [Plavix -] 75 mg PO DAILY 10/11/18 Isosorbide Mononitrate [Imdur -] 30 mg PO DAILY 10/11/18 Losartan Potassium 50 mg PO DAILY 10/11/18 Nifedipine ER [Procardia XL -] 90 mg PO DAILY 10/11/18 Ranolazine [Ranexa -] 500 mg PO BID 10/11/18 Family Disease History - Family Disease History Family Disease History: Other: Father ( when the patient was young: CHF), Mother (DiedL 92: Diabetic complications), Brother (1, healthy), Sister (1, healthy), Son (1 alive and healthy, 1 was killed), Daughter (1 alive and healthy ) Other Family History: No family history of colorectal cancer or other GI malignancy Physical Exam Vital Signs: Vital Signs Temperature 98.8 F 11/14/18 09:47 Pulse Rate 76 11/14/18 09:47 Respiratory Rate 20 11/14/18 09:47 Blood Pressure 138/68 11/14/18 09:47 O2 Sat by Pulse Oximetry (%) 97 11/13/18 21:00 Constitutional: Yes: Well Nourished, Calm Eyes: Yes: WNL HENT: Yes: Normocephalic Neck: Yes: Supple, Trachea Midline. No: Lymphadenopathy Cardiovascular: Yes: Regular Rate and Rhythm, S1, S2. No: Gallop, Murmur Respiratory: Yes: Regular, CTA Bilaterally Gastrointestinal: Yes: Normal Bowel Sounds, Soft. No: Ascites, Hepatomegaly, Splenomegaly Edema: Yes (Assymetrical R >L) Integumentary: No: Rash Neurological: Yes: Alert, Oriented ...Motor Strength: LUE, LLE, RUE (Globally decreased), RLE Psychiatric: Yes: Alert. No: Agitated Labs: CBC, BMP 11/14/18 06:30 11/14/18 06:30 Assessment/Plan Chronic anemia, likely attributable to renal impairment, with possible recent exacerbation. Unable to conclude from review of available data that there is any acuity with regard to his anemia at this time, but reasonable to rule out hemorrhage and hemolysis. Recent SPEP negative - screen for serum free light chain gammopathy. Would check all stools for hematochezia. Will add hemolysis labs to tomorrow's scheduled blood work. Daily reticulocyte counts with every CBC. Continue RICHARD with HD - may consider adjunctive IV iron if ferritin <500 and iron sat <20%. Will follow with you.
--- NOTE | 2018-11-14 19:00 | PN ---
Progress Note (short form) - Note Progress Note: covering dr solis ckd s/p fluid overload and nancy dialyzed yesterday and today Current Medications Acetaminophen (Tylenol -) 650 mg PO Q6H PRN PRN Reason: PAIN LEVEL 1-5 Last Admin: 11/05/18 22:30 Dose: 650 mg Ergocalciferol (Drisdol -) 50,000 unit PO Mo [facility] Last Admin: 11/09/18 12:00 Dose: 50,000 unit Finasteride (Proscar -) 5 mg PO DAILY [facility] Last Admin: 11/14/18 09:30 Dose: 5 mg Furosemide (Lasix Injection -) 40 mg IVPUSH BID@0600,1400 [facility] Last Admin: 11/14/18 14:25 Dose: 40 mg Guaifenesin (Diabetic Tussin Dm -) 5 ml PO Q6H PRN PRN Reason: COUGH Last Admin: 11/13/18 23:39 Dose: 5 ml Hydralazine HCl (Apresoline -) 50 mg PO TID [facility] Last Admin: 11/14/18 14:25 Dose: 50 mg Ceftriaxone Sodium 1 gm/ (Dextrose) 50 mls @ 100 mls/hr IVPB DAILY [facility]; Protocol Last Admin: 11/14/18 09:32 Dose: 100 mls/hr Sodium Chloride (Normal Saline -) 250 mls @ 3,000 mls/hr IV PRN PRN PRN Reason: Hypotension during Dialysis Sodium Chloride (Normal Saline -) 250 mls @ 3,000 mls/hr IV PRN PRN PRN Reason: Hypotension during Dialysis Stop: 11/14/18 15:19 Insulin Aspart (Novolog Vial Sliding Scale -) 1 vial SQ TIDAC [facility]; Protocol Last Admin: 11/14/18 17:15 Dose: 4 units Isosorbide Mononitrate (Imdur -) 30 mg PO DAILY [facility] Last Admin: 11/14/18 09:30 Dose: 30 mg Labetalol HCl (Normodyne -) 300 mg PO BID [facility] Last Admin: 11/14/18 09:29 Dose: 300 mg Nifedipine (Procardia Xl -) 30 mg PO DAILY [facility] Last Admin: 11/14/18 09:30 Dose: 30 mg Pantoprazole Sodium (Protonix -) 40 mg PO BID [facility] Last Admin: 11/14/18 09:30 Dose: 40 mg Polyethylene Glycol (Miralax (For Daily Use) -) 17 gm PO DAILY [facility] Last Admin: 11/14/18 10:46 Dose: Not Given Ranolazine (Ranexa -) 500 mg PO BID [facility] Last Admin: 11/14/18 09:30 Dose: 500 mg Tamsulosin HCl (Flomax -) 0.8 mg PO DAILY@0830 [facility] Last Admin: 11/14/18 08:57 Dose: 0.8 mg Last Vital Signs Temp Pulse Resp BP Pulse Ox 98.6 F 73 20 141/66 97 11/14/18 17:00 11/14/18 17:00 11/14/18 17:00 11/14/18 17:00 11/14/18 09:00 feels better Lungs clear heart reg Abd soft Ext mod edema CBC, BMP 11/14/18 06:30 11/14/18 06:30
[2018-11-15] MEDS: hydrALAZINE HCL 50 MG TABLET (FP) PO SCH ×3 (06:32→21:41)
[2018-11-15] MEDS: FUROSEMIDE 40 MG/4 ML INJECTABLE VIAL IVPUSH SCH ×2 (06:32→13:52)
[2018-11-15] MEDS: INSULIN SLIDING SCALE (NOVOLOG) 1 VIAL SQ SCH ×3 (06:32→17:27)
[2018-11-15 07:36] LABS: BASO % 1.3 % (0-2.0); HEMATOCRIT 23.2 % (35.4-49); HEMOGLOBIN 7.4 GM/dL (11.7-16.9); LYMPH % 7.1 % (8-40); MCH 28.4 pg (25.7-33.7); MCHC 32.1 g/dl (32.0-35.9); MEAN CELL VOLUME 88.5 fl (80-96); MEAN PLT VOLUME 7.3 fl (7.5-11.1); MONO % 7.3 % (3.8-10.2); NEUT % 83.3 % (42.8-82.8); PLATELET COUNT 350 K/MM3 (134-434); RBC 2.62 M/mm3 (4.00-5.60); RDW 15.8 % (11.9-15.9); WHITE BLOOD COUNT 16.4 K/mm3 (4.0-10.0)
[2018-11-15 08:17] LABS: ALBUMIN 1.8 g/dl (3.4-5.0); BILIRUBIN,TOTAL 0.7 mg/dL (0.2-1); CALCIUM 7.6 mg/dL (8.5-10.1); CREATININE 4.5 mg/dL (0.55-1.3); MAGNESIUM 1.9 mg/dL (1.8-2.4); PHOSPHOROUS 2.4 mg/dL (2.5-4.9); POTASSIUM 3.6 mmol/L (3.5-5.1); TOT PROT 5.6 g/dl (6.4-8.2)
[2018-11-15] MEDS ORDERED: cefTRIAXone SODIUM 1 GM VIAL ONE (10:48)
[2018-11-15] MEDS ORDERED: DEXTROSE 5%-WATER - 50 ML IVPB ONE (10:48)
[2018-11-15] MEDS ORDERED: PT OWN MED DRAWER 7, Y5N ONE (10:48)
[2018-11-15] MEDS: CEFTRIAXONE 1 GM in DEXTROSE 5%-WATER - 50 ML IVPB SCH (10:59)
[2018-11-15] MEDS: LABETALOL HCL 200 MG TABLET (FP) PO SCH ×2 (10:59→21:41)
[2018-11-15] MEDS: TAMSULOSIN HCL 0.4 MG CAP PO SCH (11:00)
[2018-11-15] MEDS: PANTOPRAZOLE 40 MG TABLET (FP) PO SCH ×2 (11:00→21:41)
[2018-11-15] MEDS: RANOLAZINE E.R. 500 MG TABLET (FP) PO SCH ×2 (11:00→21:41)
[2018-11-15] MEDS: ISOSORBIDE MONONITRATE 30 MG TAB.SR.24H (FP) PO SCH (11:00)
[2018-11-15] MEDS: NIFEdipine E.R. 30 MG TABLET (FP) PO SCH (11:00)
[2018-11-15] MEDS: FINASTERIDE 5 MG TABLET (FP) PO SCH (11:00)
--- NOTE | 2018-11-15 11:17 | PN ---
Physical Exam: SUBJECTIVE: Patient seen and examined, overall unchanged, reports some cough, no nausea, vomiting, abdominal pain or diarrhea. OBJECTIVE: Vital Signs Period Temp Pulse Resp BP Sys/Lopez Pulse Ox Last 24 Hr 98.5 F-98.9 F 71-75 20-20 135-141/58-67 100 Intake & Output 11/12/18 11/13/18 11/14/18 11/15/18 23:59 23:59 23:59 23:59 Intake Total 510 780 740 320 Output Total 50 350 Balance 510 730 390 320 Weight 265 lb 6.4 oz 263 lb 265 lb 3.2 oz 264 lb 3.2 oz GENERAL: The patient is awake, alert, in no acute distress Chest: poor effort, basilar rales Abdomen:soft, improved distension, NT throughout, positive bowel sounds Extremities: 2+ pedal pitting edema psych; flat affect CVS:S1s2 regular Laboratory Results - last 24 hr 11/11/18 11/14/18 11/14/18 11:10 06:30 06:35 WBC RBC Hgb Hct MCV MCH MCHC RDW Plt Count MPV Absolute Neuts (auto) Neutrophils % Neutrophils % (Manual) 86.4 H Band Neutrophils % 0.0 Lymphocytes % Lymphocytes % (Manual) 7.3 L D Monocytes % Monocytes % (Manual) 4 D Eosinophils % Eosinophils % (Manual) 0.0 D Basophils % Basophils % (Manual) 0.0 Myelocytes % (Man) 2 D Promyelocytes % (Man) 0 Blast Cells % (Manual) 0 Nucleated RBC % Metamyelocytes 0 D Hypochromia 0 Platelet Estimate Normal Platelet Comment Present Polychromasia 2+ Poikilocytosis 0 Anisocytosis 1+ Microcytosis 0 Macrocytosis 0 Retic Count 4.88 H D Sodium Potassium Chloride Carbon Dioxide Anion Gap BUN Creatinine Est GFR (CKD-EPI)AfAm Est GFR (CKD-EPI)NonAf POC Glucometer Random Glucose Calcium Phosphorus Magnesium Total Bilirubin AST ALT Alkaline Phosphatase LD Total Total Protein Albumin Blood Type O NEGATIVE Antibody Screen Negative Crossmatch See Detail 11/14/18 11/14/18 11/15/18 11:48 17:12 06:23 WBC 16.4 H RBC 2.62 L Hgb 7.4 L Hct 23.2 L MCV 88.5 MCH 28.4 MCHC 32.1 RDW 15.8 Plt Count 350 MPV 7.3 L Absolute Neuts (auto) 13.6 H Neutrophils % 83.3 H Neutrophils % (Manual) Band Neutrophils % Lymphocytes % 7.1 L D Lymphocytes % (Manual) Monocytes % 7.3 Monocytes % (Manual) Eosinophils % 1.0 Eosinophils % (Manual) Basophils % 1.3 D Basophils % (Manual) Myelocytes % (Man) Promyelocytes % (Man) Blast Cells % (Manual) Nucleated RBC % 0 Metamyelocytes Hypochromia Platelet Estimate Platelet Comment Polychromasia Poikilocytosis Anisocytosis Microcytosis Macrocytosis Retic Count Sodium Potassium Chloride Carbon Dioxide Anion Gap BUN Creatinine Est GFR (CKD-EPI)AfAm Est GFR (CKD-EPI)NonAf POC Glucometer 186 203 Random Glucose Calcium Phosphorus Magnesium Total Bilirubin AST ALT Alkaline Phosphatase LD Total Total Protein Albumin Blood Type Antibody Screen Crossmatch 11/15/18 11/15/18 06:23 06:30 WBC RBC Hgb Hct MCV MCH MCHC RDW Plt Count MPV Absolute Neuts (auto) Neutrophils % Neutrophils % (Manual) Band Neutrophils % Lymphocytes % Lymphocytes % (Manual) Monocytes % Monocytes % (Manual) Eosinophils % Eosinophils % (Manual) Basophils % Basophils % (Manual) Myelocytes % (Man) Promyelocytes % (Man) Blast Cells % (Manual) Nucleated RBC % Metamyelocytes Hypochromia Platelet Estimate Platelet Comment Polychromasia Poikilocytosis Anisocytosis Microcytosis Macrocytosis Retic Count Sodium 137 Potassium 3.6 Chloride 98 Carbon Dioxide 31 Anion Gap 8 BUN 90 H Creatinine 4.5 H Est GFR (CKD-EPI)AfAm 15.64 Est GFR (CKD-EPI)NonAf 13.50 POC Glucometer 147 Random Glucose 151 H Calcium 7.6 L Phosphorus 2.4 L Magnesium 1.9 Total Bilirubin 0.7 AST 40 H ALT 58 Alkaline Phosphatase 182 H LD Total 256 H Total Protein 5.6 L Albumin 1.8 L Blood Type Antibody Screen Crossmatch Active Medications Generic Name Dose Route Start Last Admin Trade Name Freq PRN Reason Stop Dose Admin Acetaminophen 650 mg 10/28/18 16:55 11/14/18 10:40 Tylenol - PO 650 mg Q6H PRN Administration PAIN LEVEL 1-5 Ergocalciferol 50,000 unit 10/26/18 12:00 11/09/18 12:00 Drisdol - PO 50,000 unit Mo SANGEETHA Administration Finasteride 5 mg 11/03/18 14:30 11/15/18 11:00 Proscar - PO 5 mg DAILY SANGEETHA Administration Furosemide 40 mg 11/12/18 06:00 11/15/18 06:32 Lasix Injection - IVPUSH 40 mg BID@0600,1400 SANGEETHA Administration Guaifenesin 5 ml 10/29/18 20:47 11/13/18 23:39 Diabetic Tussin Dm - PO 5 ml Q6H PRN Administration COUGH Hydralazine HCl 50 mg 10/26/18 14:00 11/15/18 06:32 Apresoline - PO 50 mg TID SANGEETHA Administration Ceftriaxone Sodium 1 gm/ 50 mls @ 100 mls/hr 11/09/18 10:00 11/15/18 10:59 Dextrose IVPB 100 mls/hr DAILY SANGEETHA Administration Protocol Sodium Chloride 250 mls @ 3,000 mls/hr 11/09/18 15:19 Normal Saline - IV PRN PRN Hypotension during Dialysis Sodium Chloride 250 mls @ 3,000 mls/hr 11/13/18 15:19 Normal Saline - IV 11/14/18 15:19 PRN PRN Hypotension during Dialysis Insulin Aspart 1 vial 10/26/18 16:30 11/15/18 06:32 Novolog Vial Sliding Scale - SQ Not Given TIDAC [facility] Protocol Isosorbide Mononitrate 30 mg 10/27/18 10:00 11/15/18 11:00 Imdur - PO 30 mg DAILY SANGEETHA Administration Labetalol HCl 300 mg 11/15/18 10:53 11/15/18 10:59 Normodyne - PO 300 mg BID SANGEETHA Administration Nifedipine 30 mg 11/10/18 11:45 11/15/18 11:00 Procardia Xl - PO 30 mg DAILY SANGEETHA Administration Pantoprazole Sodium 40 mg 11/13/18 22:00 11/15/18 11:00 Protonix - PO 40 mg BID SANGEETHA Administration Polyethylene Glycol 17 gm 11/13/18 13:30 11/14/18 10:46 Miralax (For Daily Use) - PO Not Given DAILY SANGEETHA Ranolazine 500 mg 10/26/18 22:00 11/15/18 11:00 Ranexa - PO 500 mg BID SANGEETHA Administration Tamsulosin HCl 0.8 mg 11/04/18 08:30 11/15/18 11:00 Flomax - PO 0.8 mg DAILY@0830 SANGEETHA Administration Microbiology 11/13/18 10:00 Blood - Shiley Catheter Blood Culture - Preliminary NO GROWTH OBTAINED AFTER 48 HOURS, INCUBATION TO CONTINUE FOR 3 DAYS. 11/13/18 15:45 Urine - Urine - Catheterized Urine Culture - Final NO GROWTH OBTAINED 11/13/18 22:30 Blood - Shiley Catheter Blood Culture - Preliminary NO GROWTH OBTAINED AFTER 24 HOURS, INCUBATION TO CONTINUE FOR 4 DAYS. 11/12/18 12:51 Blood - Peripheral Venous Blood Culture - Preliminary NO GROWTH OBTAINED AFTER 48 HOURS, INCUBATION TO CONTINUE FOR 3 DAYS. 11/12/18 12:45 Blood - Peripheral Venous Blood Culture - Preliminary NO GROWTH OBTAINED AFTER 48 HOURS, INCUBATION TO CONTINUE FOR 3 DAYS. 11/07/18 07:35 Blood - Peripheral Venous Blood Culture - Final NO GROWTH AFTER 5 DAYS INCUBATION 11/07/18 08:00 Blood - Peripheral Venous Blood Culture - Final NO GROWTH AFTER 5 DAYS INCUBATION 11/04/18 13:00 Blood - Peripheral Venous Blood Culture - Final NO GROWTH AFTER 5 DAYS INCUBATION 11/05/18 04:10 Urine - Urine - Catheterized Urine Culture - Final Escherichia Coli Strep Agalactiae Group B 11/04/18 12:53 Blood - Peripheral Venous Blood Culture - Final Escherichia Coli ASSESSMENT/PLAN: 58 yom with PMX of CAD s/p Stage FER PCI 09/2017/10/2017, HTN, HLD, NIDDM, CKD stage III, (recent renal dysfunction, was planned for possible PCI), PAD s/p SFA PCI 2016 admitted with CHF -Leucocytosis, infection vs atelectasis, r/o GI bleed -Bibasilar atelectasis, likely from poor effort/pleural effusions, less likely PNA -Acute systolic heart failure exacerbation, on new HD -ESRD on new HD -E. Coli UTI/sepsis with bacteremia -Recurrent severe anemia -CAD s/p staged PCI 09/2017 and 10/2017 -Cardiomyopathy, suspect ischemia EF 40-45% -Left pleural effusion, suspect transudative based on current presentation -HTN -HLD -NIDDM -CKD stage III -PAD s/p SFA PCI 2016 Plan: WBC improved Peripheral/Shiley Blood and urine studies neg. CT Chest/A/P noted. ID input noted. Ceftriaxone day 10 Ongoing HD. Continues to be anemic inspite of multilpe PRBC, inappropriate response. h/h stable over 48 hours, no gross evidence of bleed. Follow up with GI. Monitor closely. Lasix 40 mg IV BID, continue per renal Strict I/Os and daily weights. Renal biopsy on hold given active infection/bleed concerns, attempt in AM if h/ h stable and WBc better. Cardiology input appreciated. RHC per clinical course. Delgado re-inserted. Continue flomax/finasteride. Renal/Bladder US noted. Encourage OOB and incentive spirometry. ASA/plavix on hold for renal biopsy, now with bleed concerns. LUE duplex neg for DVT Continue Labetalol/hydralazine/nifedipine/ranexa/Imdur. ISS, diabetic diet DVTPPX SCDs given recurrent anemia and concerns for GI bleed, start heparin in 24 hours if h/h stable. PT eval, encourage OOB, incentive spirometry Dispo pending clinical improvement. Plan discussed with patient and nursing, all questions answered. Visit type - Emergency Visit Emergency Visit: Yes ED Registration Date: 10/26/18 Care time: The patient presented to the Emergency Department on the above date and was hospitalized for further evaluation of their emergent condition. - New Patient This patient is new to me today: No - Critical Care Critical Care patient: No - Discharge Referral [facility]erred to [facility] Med P.C.: No
[2018-11-15] MEDS ORDERED: NAPH,MB-DB/K PH,MBDB POWDER PACKET PO ONE (11:20)
--- NOTE | 2018-11-15 11:44 | PN ---
Progress Note (short form) - Note Progress Note: s: no chest pain, palps, dyspnea dizzy TELE: sr Current Medications Generic Name Dose Route Start Last Admin Trade Name Freq PRN Reason Stop Dose Admin Acetaminophen 650 mg 10/28/18 16:55 11/14/18 10:40 Tylenol - PO 650 mg Q6H PRN Administration PAIN LEVEL 1-5 Ergocalciferol 50,000 unit 10/26/18 12:00 11/09/18 12:00 Drisdol - PO 50,000 unit Mo SANGEETHA Administration Finasteride 5 mg 11/03/18 14:30 11/15/18 11:00 Proscar - PO 5 mg DAILY SANGEETHA Administration Furosemide 40 mg 11/12/18 06:00 11/15/18 06:32 Lasix Injection - IVPUSH 40 mg BID@0600,1400 SANGEETHA Administration Guaifenesin 5 ml 10/29/18 20:47 11/13/18 23:39 Diabetic Tussin Dm - PO 5 ml Q6H PRN Administration COUGH Hydralazine HCl 50 mg 10/26/18 14:00 11/15/18 06:32 Apresoline - PO 50 mg TID SANGEETHA Administration Ceftriaxone Sodium 1 gm/ 50 mls @ 100 mls/hr 11/09/18 10:00 11/15/18 10:59 Dextrose IVPB 100 mls/hr DAILY SANGEETHA Administration Protocol Sodium Chloride 250 mls @ 3,000 mls/hr 11/09/18 15:19 Normal Saline - IV PRN PRN Hypotension during Dialysis Sodium Chloride 250 mls @ 3,000 mls/hr 11/13/18 15:19 Normal Saline - IV 11/14/18 15:19 PRN PRN Hypotension during Dialysis Insulin Aspart 1 vial 10/26/18 16:30 11/15/18 06:32 Novolog Vial Sliding Scale - SQ Not Given TIDAC SANGEETHA Protocol Isosorbide Mononitrate 30 mg 10/27/18 10:00 11/15/18 11:00 Imdur - PO 30 mg DAILY SANGEETHA Administration Labetalol HCl 300 mg 11/15/18 10:53 11/15/18 10:59 Normodyne - PO 300 mg BID SANGEETHA Administration Magnesium Oxide 800 mg 11/15/18 11:30 Mag-Ox - PO 11/17/18 10:01 DAILY SANGEETHA Nifedipine 30 mg 11/10/18 11:45 11/15/18 11:00 Procardia Xl - PO 30 mg DAILY SANGEETHA Administration Pantoprazole Sodium 40 mg 11/13/18 22:00 11/15/18 11:00 Protonix - PO 40 mg BID SANGEETHA Administration Polyethylene Glycol 17 gm 11/13/18 13:30 11/14/18 10:46 Miralax (For Daily Use) - PO Not Given DAILY SANGEETHA Ranolazine 500 mg 10/26/18 22:00 11/15/18 11:00 Ranexa - PO 500 mg BID SANGEETHA Administration Tamsulosin HCl 0.8 mg 11/04/18 08:30 11/15/18 11:00 Flomax - PO 0.8 mg DAILY@0830 SANGEETHA Administration Vital Signs Period Temp Pulse Resp BP Sys/Lopez Pulse Ox Last 24 Hr 98.5 F-98.9 F 71-75 20-20 135-141/58-67 100 Constitutional: Yes: No Distress Cardiovascular: Yes: Regular Rate and Rhythm Respiratory: Yes: Other (decreased breath sounds at bases. No active wheezing.) Gastrointestinal: Yes: Soft, Abdomen, Obese Edema: Yes Edema: LLE: 1+, RLE: 1+ Neurological: Yes: Alert, Oriented no jaundice diaphoresis not agitated Assessment/Plan 1. Acute systolic HF exacerbation: - EF 40-45% - cont labetolol, not on ACEI/ARB for CKD - continue hydralzine and imdur. - Hypoalbuminemia may also be contributing to edema - edema improving with HD, weight down, volume management per renal 2. CKD - renal following - holding aspirin and plavix for kidney bx - HD per renal 3. CAD: - s/p FER most recently 09/2017, 10/2017 - on aspirin and plavix, holding for planned kidney bx 4. HTN: - stable 5. anemia: -plans for egd friday, no cardiac contraindications
[2018-11-15 12:54] LABS: ANISOCYTOSIS 2+; MACROCYTOSIS 1+; OVALOCYTE 1+; PLATELET ESTIMATE NORMAL; TARGET CELLS 1+; TEAR DROP CELLS 1+
[2018-11-15] MEDS: POLYETHYLENE GLYCOL 3350 119 GM BTL PO SCH (13:52)
[2018-11-15] MEDS: MAGNESIUM OXIDE 400 MG TABLET (FP) PO SCH (13:52)
--- NOTE | 2018-11-15 14:38 | PN ---
Progress Note (short form) - Note Progress Note: covering dr solis ckd s/p fluid overload and gabi dialyzed yesterday and today Current Medications Acetaminophen (Tylenol -) 650 mg PO Q6H PRN PRN Reason: PAIN LEVEL 1-5 Last Admin: 11/14/18 10:40 Dose: 650 mg Ergocalciferol (Drisdol -) 50,000 unit PO Mo [facility] Last Admin: 11/09/18 12:00 Dose: 50,000 unit Finasteride (Proscar -) 5 mg PO DAILY [facility] Last Admin: 11/15/18 11:00 Dose: 5 mg Furosemide (Lasix Injection -) 40 mg IVPUSH BID@0600,1400 [facility] Last Admin: 11/15/18 13:52 Dose: 40 mg Guaifenesin (Diabetic Tussin Dm -) 5 ml PO Q6H PRN PRN Reason: COUGH Last Admin: 11/13/18 23:39 Dose: 5 ml Hydralazine HCl (Apresoline -) 50 mg PO TID [facility] Last Admin: 11/15/18 13:52 Dose: 50 mg Ceftriaxone Sodium 1 gm/ (Dextrose) 50 mls @ 100 mls/hr IVPB DAILY [facility]; Protocol Last Admin: 11/15/18 10:59 Dose: 100 mls/hr Sodium Chloride (Normal Saline -) 250 mls @ 3,000 mls/hr IV PRN PRN PRN Reason: Hypotension during Dialysis Sodium Chloride (Normal Saline -) 250 mls @ 3,000 mls/hr IV PRN PRN PRN Reason: Hypotension during Dialysis Stop: 11/14/18 15:19 Insulin Aspart (Novolog Vial Sliding Scale -) 1 vial SQ TIDAC [facility]; Protocol Last Admin: 11/15/18 12:00 Dose: 2 units Isosorbide Mononitrate (Imdur -) 30 mg PO DAILY [facility] Last Admin: 11/15/18 11:00 Dose: 30 mg Labetalol HCl (Normodyne -) 300 mg PO BID [facility] Last Admin: 11/15/18 10:59 Dose: 300 mg Magnesium Oxide (Mag-Ox -) 800 mg PO DAILY [facility] Stop: 11/17/18 10:01 Last Admin: 11/15/18 13:52 Dose: 800 mg Nifedipine (Procardia Xl -) 30 mg PO DAILY [facility] Last Admin: 11/15/18 11:00 Dose: 30 mg Pantoprazole Sodium (Protonix -) 40 mg PO BID [facility] Last Admin: 11/15/18 11:00 Dose: 40 mg Polyethylene Glycol (Miralax (For Daily Use) -) 17 gm PO DAILY [facility] Last Admin: 11/15/18 13:52 Dose: 17 gm Ranolazine (Ranexa -) 500 mg PO BID [facility] Last Admin: 11/15/18 11:00 Dose: 500 mg Tamsulosin HCl (Flomax -) 0.8 mg PO DAILY@0830 [facility] Last Admin: 11/15/18 11:00 Dose: 0.8 mg Last Vital Signs Temp Pulse Resp BP Pulse Ox 98.2 F 73 20 147/70 98 11/15/18 14:00 11/15/18 14:00 11/15/18 09:00 11/15/18 14:00 11/15/18 09:00 feels better Lungs clear heart reg Abd soft Ext mod edema CBC, BMP 11/15/18 06:23 11/15/18 06:23 CBC, BMP 11/14/18 06:30 11/14/18 06:30 IMP- CKD s/p Fluid overload GABI requ HD GI bleed s/p PRBC 2 units EGD pending No indications for dialysis today or tomorrow Plan- daily weights
[2018-11-16] MEDS: LABETALOL HCL 100 MG TABLET (FP) PO SCH (03:39)
[2018-11-16] MEDS: hydrALAZINE HCL 50 MG TABLET (FP) PO SCH ×3 (06:36→22:57)
[2018-11-16] MEDS: FUROSEMIDE 40 MG/4 ML INJECTABLE VIAL IVPUSH SCH ×2 (06:36→14:30)
[2018-11-16] MEDS: INSULIN SLIDING SCALE (NOVOLOG) 1 VIAL SQ SCH ×3 (06:36→17:11)
[2018-11-16 07:01] LABS: BASO % 0.6 % (0-2.0); EOS % 0.7 % (0-4.5); HEMATOCRIT 22.1 % (35.4-49); HEMOGLOBIN 7.2 GM/dL (11.7-16.9); LYMPH % 5.5 % (8-40); MCH 28.6 pg (25.7-33.7); MCHC 32.4 g/dl (32.0-35.9); MEAN CELL VOLUME 88.2 fl (80-96); MEAN PLT VOLUME 7.2 fl (7.5-11.1); MONO % 8.5 % (3.8-10.2); NEUT % 84.7 % (42.8-82.8); PLATELET COUNT 327 K/MM3 (134-434); RDW 15.7 % (11.9-15.9); WHITE BLOOD COUNT 13.4 K/mm3 (4.0-10.0)
[2018-11-16 07:30] LABS: ALBUMIN 1.7 g/dl (3.4-5.0); BILIRUBIN,TOTAL 0.5 mg/dL (0.2-1); CALCIUM 7.7 mg/dL (8.5-10.1); CREATININE 4.9 mg/dL (0.55-1.3); MAGNESIUM 2.1 mg/dL (1.8-2.4); PHOSPHOROUS 3.2 mg/dL (2.5-4.9); POTASSIUM 3.9 mmol/L (3.5-5.1); TOT PROT 5.5 g/dl (6.4-8.2)
[2018-11-16] MEDS: TAMSULOSIN HCL 0.4 MG CAP PO SCH (09:00)
[2018-11-16] MEDS: FINASTERIDE 5 MG TABLET (FP) PO SCH (09:00)
[2018-11-16] MEDS: POLYETHYLENE GLYCOL 3350 119 GM BTL PO SCH (09:00)
--- NOTE | 2018-11-16 09:04 | PN ---
Progress Note, Physician Chief Complaint: seen and examined No chest pain or SOB TELE:NSR, PVCs History of Present Illness: weight is down. - Current Medication List Current Medications: Active Medications Acetaminophen (Tylenol -) 650 mg PO Q6H PRN PRN Reason: PAIN LEVEL 1-5 Last Admin: 11/14/18 10:40 Dose: 650 mg Ergocalciferol (Drisdol -) 50,000 unit PO Mo [facility] Last Admin: 11/09/18 12:00 Dose: 50,000 unit Finasteride (Proscar -) 5 mg PO DAILY [facility] Last Admin: 11/15/18 11:00 Dose: 5 mg Furosemide (Lasix Injection -) 40 mg IVPUSH BID@0600,1400 [facility] Last Admin: 11/16/18 06:36 Dose: 40 mg Guaifenesin (Diabetic Tussin Dm -) 5 ml PO Q6H PRN PRN Reason: COUGH Last Admin: 11/13/18 23:39 Dose: 5 ml Hydralazine HCl (Apresoline -) 50 mg PO TID [facility] Last Admin: 11/16/18 06:36 Dose: 50 mg Ceftriaxone Sodium 1 gm/ (Dextrose) 50 mls @ 100 mls/hr IVPB DAILY [facility]; Protocol Last Admin: 11/15/18 10:59 Dose: 100 mls/hr Sodium Chloride (Normal Saline -) 250 mls @ 3,000 mls/hr IV PRN PRN PRN Reason: Hypotension during Dialysis Insulin Aspart (Novolog Vial Sliding Scale -) 1 vial SQ TIDAC [facility]; Protocol Last Admin: 11/16/18 06:36 Dose: 2 units Isosorbide Mononitrate (Imdur -) 30 mg PO DAILY [facility] Last Admin: 11/15/18 11:00 Dose: 30 mg Labetalol HCl (Normodyne -) 300 mg PO BID [facility] Last Admin: 11/15/18 21:41 Dose: 300 mg Magnesium Oxide (Mag-Ox -) 800 mg PO DAILY [facility] Stop: 11/17/18 10:01 Last Admin: 11/15/18 13:52 Dose: 800 mg Nifedipine (Procardia Xl -) 30 mg PO DAILY [facility] Last Admin: 11/15/18 11:00 Dose: 30 mg Pantoprazole Sodium (Protonix -) 40 mg PO BID [facility] Last Admin: 11/15/18 21:41 Dose: 40 mg Polyethylene Glycol (Miralax (For Daily Use) -) 17 gm PO DAILY [facility] Last Admin: 11/15/18 13:52 Dose: 17 gm Ranolazine (Ranexa -) 500 mg PO BID [facility] Last Admin: 11/15/18 21:41 Dose: 500 mg Tamsulosin HCl (Flomax -) 0.8 mg PO DAILY@0830 [facility] Last Admin: 11/15/18 11:00 Dose: 0.8 mg - Objective Vital Signs: Vital Signs Temperature 98.0 F 11/16/18 06:00 Pulse Rate 70 11/16/18 06:00 Respiratory Rate 20 11/16/18 06:00 Blood Pressure 130/64 11/16/18 06:00 O2 Sat by Pulse Oximetry (%) 100 11/15/18 22:00 Constitutional: Yes: No Distress, Calm Eyes: Yes: Conjunctiva Clear Cardiovascular: Yes: Regular Rate and Rhythm Respiratory: Yes: CTA Bilaterally Gastrointestinal: Yes: Soft (NT) Edema: Yes Edema: LLE: 1+, RLE: 1+ Neurological: Yes: Alert, Oriented ...Motor Strength: WNL Labs: CBC, BMP 11/16/18 05:30 11/16/18 05:30 INR, PTT INR 1.49 (0.83-1.09) H 11/11/18 09:23 Selected Entries 11/16/18 05:34 Weight 261 lb 3.2 oz Laboratory Tests 11/16/18 11/16/18 05:30 05:30 WBC 13.4 H Hgb 7.2 L Hct 22.1 L Plt Count 327 Sodium 134 L Potassium 3.9 BUN 104 H Creatinine 4.9 H Magnesium 2.1 - ....Imaging EKG: Image Reviewed (NSR, PVCs) Assessment/Plan Assessment/Plan 1. Acute systolic HF exacerbation: - EF 40-45% - cont labetolol, not on ACEI/ARB for CKD - continue hydralzine and imdur. - Hypoalbuminemia may also be contributing to edema - edema improving with HD, weight down, volume management per renal 2. CKD - renal following - holding aspirin and plavix for kidney bx - HD per renal 3. CAD: - s/p FER most recently 09/2017, 10/2017 - on aspirin and plavix, holding for planned kidney bx 4. HTN: - stable 5. Anemia: -plans for egd , no cardiac contraindications
--- NOTE | 2018-11-16 10:14 | PN ---
Teaching Attending Note Name of Resident: Harsh Ponce ATTENDING PHYSICIAN STATEMENT I saw and evaluated the patient. I reviewed the resident's note and discussed the case with the resident. I agree with the resident's findings and plan as documented with exceptions below. SUBJECTIVE: Patient seen and examined, no complaints. OBJECTIVE: Vital Signs Period Temp Pulse Resp BP Sys/Lopez Pulse Ox Last 24 Hr 98.0 F-98.9 F 70-75 20-20 122-154/64-74 100 Intake & Output 11/13/18 11/14/18 11/15/18 11/16/18 23:59 23:59 23:59 23:59 Intake Total 780 740 660 Output Total 50 350 400 Balance 730 390 260 Weight 263 lb 265 lb 3.2 oz 264 lb 3.2 oz 261 lb 3.2 oz General: lying in bed, no acute distress Chest: decreased breath sounds at bases, overall poor effort Abdomen:Soft, improved distension, NT Extremities: 2+ pedal edema, improved from before psych: flat affect Home Medications Medication Instructions Recorded Glipizide [Glucotrol] 5 mg PO BID 04/08/17 Atorvastatin Ca [Lipitor] 40 mg PO HS 09/25/18 Ergocalciferol (Vitamin D2) 50,000 unit PO WEEKLY 09/25/18 [Vitamin D2] Tamsulosin HCl [Flomax] 0.4 mg PO DAILY 09/25/18 Furosemide [Lasix -] 80 mg PO DAILY 30 Days #60 tablet 10/07/18 Labetalol HCl [Normodyne -] 300 mg PO BID 30 Days #180 tablet 10/07/18 hydrALAZINE HCL [Apresoline -] 50 mg PO TID 30 Days #90 tablet 10/07/18 Aspirin [Aspirin EC] 81 mg PO DAILY 10/11/18 Clopidogrel Bisulfate [Plavix -] 75 mg PO DAILY 10/11/18 Isosorbide Mononitrate [Imdur -] 30 mg PO DAILY 10/11/18 Losartan Potassium 50 mg PO DAILY 10/11/18 Nifedipine ER [Procardia XL -] 90 mg PO DAILY 10/11/18 Ranolazine [Ranexa -] 500 mg PO BID 10/11/18 Active Medications Acetaminophen (Tylenol -) 650 mg PO Q6H PRN PRN Reason: PAIN LEVEL 1-5 Last Admin: 11/14/18 10:40 Dose: 650 mg Ergocalciferol (Drisdol -) 50,000 unit PO Mo [facility] Last Admin: 11/09/18 12:00 Dose: 50,000 unit Finasteride (Proscar -) 5 mg PO DAILY [facility] Last Admin: 11/15/18 11:00 Dose: 5 mg Furosemide (Lasix Injection -) 40 mg IVPUSH BID@0600,1400 [facility] Last Admin: 11/16/18 06:36 Dose: 40 mg Guaifenesin (Diabetic Tussin Dm -) 5 ml PO Q6H PRN PRN Reason: COUGH Last Admin: 11/13/18 23:39 Dose: 5 ml Hydralazine HCl (Apresoline -) 50 mg PO TID [facility] Last Admin: 11/16/18 06:36 Dose: 50 mg Ceftriaxone Sodium 1 gm/ (Dextrose) 50 mls @ 100 mls/hr IVPB DAILY [facility]; Protocol Last Admin: 11/15/18 10:59 Dose: 100 mls/hr Sodium Chloride (Normal Saline -) 250 mls @ 3,000 mls/hr IV PRN PRN PRN Reason: Hypotension during Dialysis Insulin Aspart (Novolog Vial Sliding Scale -) 1 vial SQ TIDAC [facility]; Protocol Last Admin: 11/16/18 06:36 Dose: 2 units Isosorbide Mononitrate (Imdur -) 30 mg PO DAILY [facility] Last Admin: 11/15/18 11:00 Dose: 30 mg Labetalol HCl (Normodyne -) 300 mg PO BID [facility] Last Admin: 11/15/18 21:41 Dose: 300 mg Magnesium Oxide (Mag-Ox -) 800 mg PO DAILY [facility] Stop: 11/17/18 10:01 Last Admin: 11/15/18 13:52 Dose: 800 mg Nifedipine (Procardia Xl -) 30 mg PO DAILY [facility] Last Admin: 11/15/18 11:00 Dose: 30 mg Pantoprazole Sodium (Protonix -) 40 mg PO BID [facility] Last Admin: 11/15/18 21:41 Dose: 40 mg Polyethylene Glycol (Miralax (For Daily Use) -) 17 gm PO DAILY [facility] Last Admin: 11/15/18 13:52 Dose: 17 gm Ranolazine (Ranexa -) 500 mg PO BID [facility] Last Admin: 11/15/18 21:41 Dose: 500 mg Tamsulosin HCl (Flomax -) 0.8 mg PO DAILY@0830 [facility] Last Admin: 11/15/18 11:00 Dose: 0.8 mg Laboratory Results - last 24 hr 11/15/18 11/15/18 11/15/18 06:23 06:23 11:53 WBC RBC Hgb Hct MCV MCH MCHC RDW Plt Count MPV Absolute Neuts (auto) Neutrophils % Neutrophils % (Manual) 86.0 H Band Neutrophils % 0.0 Lymphocytes % Lymphocytes % (Manual) 3.0 L D Monocytes % Monocytes % (Manual) 5 Eosinophils % Eosinophils % (Manual) 1.0 D Basophils % Basophils % (Manual) 0.0 Myelocytes % (Man) 0 D Promyelocytes % (Man) 0 Blast Cells % (Manual) 0 Nucleated RBC % Metamyelocytes 2 D Hypochromia 2+ Platelet Estimate Normal Polychromasia 1+ Poikilocytosis 1+ Anisocytosis 2+ Microcytosis 1+ Macrocytosis 1+ Spherocytes 1+ Target Cells 1+ Tear Drop Cells 1+ Ovalocytes 1+ Acanthocytes (Spur) 1+ Retic Count 5.54 H D Sodium Potassium Chloride Carbon Dioxide Anion Gap BUN Creatinine Est GFR (CKD-EPI)AfAm Est GFR (CKD-EPI)NonAf POC Glucometer 195 Random Glucose Calcium Phosphorus Magnesium Total Bilirubin AST ALT Alkaline Phosphatase Total Protein Albumin 11/15/18 11/16/18 11/16/18 17:07 05:30 05:30 WBC 13.4 H RBC 2.50 L Hgb 7.2 L Hct 22.1 L MCV 88.2 MCH 28.6 MCHC 32.4 RDW 15.7 Plt Count 327 MPV 7.2 L Absolute Neuts (auto) 11.3 H Neutrophils % 84.7 H Neutrophils % (Manual) Band Neutrophils % Lymphocytes % 5.5 L D Lymphocytes % (Manual) Monocytes % 8.5 Monocytes % (Manual) Eosinophils % 0.7 Eosinophils % (Manual) Basophils % 0.6 Basophils % (Manual) Myelocytes % (Man) Promyelocytes % (Man) Blast Cells % (Manual) Nucleated RBC % 0 Metamyelocytes Hypochromia Platelet Estimate Polychromasia Poikilocytosis Anisocytosis Microcytosis Macrocytosis Spherocytes Target Cells Tear Drop Cells Ovalocytes Acanthocytes (Spur) Retic Count Sodium 134 L Potassium 3.9 Chloride 98 Carbon Dioxide 29 Anion Gap 8 BUN 104 H Creatinine 4.9 H Est GFR (CKD-EPI)AfAm 14.11 Est GFR (CKD-EPI)NonAf 12.18 POC Glucometer 203 Random Glucose 186 H Calcium 7.7 L Phosphorus 3.2 Magnesium 2.1 Total Bilirubin 0.5 AST 36 ALT 24 Alkaline Phosphatase 180 H Total Protein 5.5 L Albumin 1.7 L 11/16/18 06:34 WBC RBC Hgb Hct MCV MCH MCHC RDW Plt Count MPV Absolute Neuts (auto) Neutrophils % Neutrophils % (Manual) Band Neutrophils % Lymphocytes % Lymphocytes % (Manual) Monocytes % Monocytes % (Manual) Eosinophils % Eosinophils % (Manual) Basophils % Basophils % (Manual) Myelocytes % (Man) Promyelocytes % (Man) Blast Cells % (Manual) Nucleated RBC % Metamyelocytes Hypochromia Platelet Estimate Polychromasia Poikilocytosis Anisocytosis Microcytosis Macrocytosis Spherocytes Target Cells Tear Drop Cells Ovalocytes Acanthocytes (Spur) Retic Count Sodium Potassium Chloride Carbon Dioxide Anion Gap BUN Creatinine Est GFR (CKD-EPI)AfAm Est GFR (CKD-EPI)NonAf POC Glucometer 198 Random Glucose Calcium Phosphorus Magnesium Total Bilirubin AST ALT Alkaline Phosphatase Total Protein Albumin ASSESSMENT AND PLAN: 58 yom with PMX of CAD s/p Stage FER PCI 09/2017/10/2017, HTN, HLD, NIDDM, CKD stage III, (recent renal dysfunction, was planned for possible PCI), PAD s/p SFA PCI 2016 admitted with CHF -Leucocytosis, infection vs atelectasis, r/o GI bleed -Bibasilar atelectasis, likely from poor effort/pleural effusions, less likely PNA -Acute systolic heart failure exacerbation, on new HD -ESRD on new HD -E. Coli UTI/sepsis with bacteremia -Recurrent severe anemia -CAD s/p staged PCI 09/2017 and 10/2017 -Cardiomyopathy, suspect ischemia EF 40-45% -Left pleural effusion, suspect transudative based on current presentation -HTN -HLD -NIDDM -CKD stage III -PAD s/p SFA PCI 2016 Plan: WBC improved Peripheral/Shiley Blood and urine studies neg. CT Chest/A/P noted. ID input noted. Ceftriaxone day 11 Ongoing HD. Continues to be anemic inspite of multilpe PRBC, inappropriate response. h/h stable over 48 hours, no gross evidence of bleed. Follow up with GI. Monitor closely. Lasix 40 mg IV BID, continue per renal Strict I/Os and daily weights. NPO, discuss with IR for possible renal biopsy today. Resume diet accordingly. Cardiology input appreciated. RHC per clinical course. Delgado re-inserted. Continue flomax/finasteride. Renal/Bladder US noted. Encourage OOB and incentive spirometry. ASA/plavix on hold for renal biopsy, now with bleed concerns. LUE duplex neg for DVT Continue Labetalol/hydralazine/nifedipine/ranexa/Imdur. ISS, diabetic diet DVTPPX SCDs given recurrent anemia and concerns for GI bleed, start heparin pending renal biopsy plans today. PT eval, encourage OOB, incentive spirometry Dispo pending clinical improvement. Plan discussed with patient and nursing, all questions answered.
[2018-11-16] MEDS ORDERED: DEXTROSE 5%-WATER - 50 ML IVPB ONE (10:20)
[2018-11-16] MEDS ORDERED: cefTRIAXone SODIUM 1 GM VIAL ONE (10:20)
[2018-11-16] MEDS: ISOSORBIDE MONONITRATE 30 MG TAB.SR.24H (FP) PO SCH (10:26)
[2018-11-16] MEDS: MAGNESIUM OXIDE 400 MG TABLET (FP) PO SCH (10:26)
[2018-11-16] MEDS: LABETALOL HCL 200 MG TABLET (FP) PO SCH ×2 (10:26→22:57)
[2018-11-16] MEDS: NIFEdipine E.R. 30 MG TABLET (FP) PO SCH (10:27)
[2018-11-16] MEDS: PANTOPRAZOLE 40 MG TABLET (FP) PO SCH ×2 (10:27→22:57)
[2018-11-16] MEDS: CEFTRIAXONE 1 GM in DEXTROSE 5%-WATER - 50 ML IVPB SCH (10:27)
[2018-11-16] MEDS: RANOLAZINE E.R. 500 MG TABLET (FP) PO SCH ×2 (10:27→22:57)
[2018-11-16 10:30] LABS: ANISOCYTOSIS 1+; MACROCYTOSIS 0; PLATELET ESTIMATE NORMAL
[2018-11-16 10:32] LABS: INR 1.3 (0.83-1.09); PROTHROMBIN TIME (PATIENT) 15.4 SEC (9.7-13.0)
--- NOTE | 2018-11-16 11:42 | PN ---
Physical Exam: SUBJECTIVE: Patient seen and examined at bedside. Says he has shoulder soreness from laying on bed otherwise no other complaints. OBJECTIVE: Vital Signs Temperature 98.0 F 11/16/18 06:00 Pulse Rate 70 11/16/18 06:00 Respiratory Rate 20 11/16/18 06:00 Blood Pressure 130/64 11/16/18 06:00 O2 Sat by Pulse Oximetry (%) 100 11/15/18 22:00 GENERAL: The patient is awake, alert, and fully oriented, in no acute distress. ENT: Ears normal, nares patent LUNGS: Poor inspiratory effort, decreased breath sounds at bases. HEART: Regular rate and rhythm, S1, S2 without murmur, rub or gallop. ABDOMEN: Soft, nontender, nondistended, normoactive bowel sounds EXTREMITIES: warm, well-perfused, 1+ b/l pitting edema. NEUROLOGICAL: Cranial nerves II through XII grossly intact. PSYCH: Flat affect SKIN: Warm, dry Laboratory Results - last 24 hr 11/11/18 11/15/18 11/15/18 11:10 06:23 06:23 WBC RBC Hgb Hct MCV MCH MCHC RDW Plt Count MPV Absolute Neuts (auto) Neutrophils % Neutrophils % (Manual) 86.0 H Band Neutrophils % 0.0 Lymphocytes % Lymphocytes % (Manual) 3.0 L D Monocytes % Monocytes % (Manual) 5 Eosinophils % Eosinophils % (Manual) 1.0 D Basophils % Basophils % (Manual) 0.0 Myelocytes % (Man) 0 D Promyelocytes % (Man) 0 Blast Cells % (Manual) 0 Nucleated RBC % Metamyelocytes 2 D Hypochromia 2+ Platelet Estimate Normal Polychromasia 1+ Poikilocytosis 1+ Anisocytosis 2+ Microcytosis 1+ Macrocytosis 1+ Spherocytes 1+ Target Cells 1+ Tear Drop Cells 1+ Ovalocytes 1+ Acanthocytes (Spur) 1+ Retic Count 5.54 H D PT with INR INR Sodium Potassium Chloride Carbon Dioxide Anion Gap BUN Creatinine Est GFR (CKD-EPI)AfAm Est GFR (CKD-EPI)NonAf POC Glucometer Random Glucose Calcium Phosphorus Magnesium Total Bilirubin AST ALT Alkaline Phosphatase Total Protein Albumin Blood Type O NEGATIVE Antibody Screen Negative Crossmatch See Detail 11/15/18 11/15/18 11/16/18 11:53 17:07 05:30 WBC 13.4 H RBC 2.50 L Hgb 7.2 L Hct 22.1 L MCV 88.2 MCH 28.6 MCHC 32.4 RDW 15.7 Plt Count 327 MPV 7.2 L Absolute Neuts (auto) 11.3 H Neutrophils % 84.7 H Neutrophils % (Manual) Band Neutrophils % Lymphocytes % 5.5 L D Lymphocytes % (Manual) Monocytes % 8.5 Monocytes % (Manual) Eosinophils % 0.7 Eosinophils % (Manual) Basophils % 0.6 Basophils % (Manual) Myelocytes % (Man) Promyelocytes % (Man) Blast Cells % (Manual) Nucleated RBC % 0 Metamyelocytes Hypochromia Platelet Estimate Polychromasia Poikilocytosis Anisocytosis Microcytosis Macrocytosis Spherocytes Target Cells Tear Drop Cells Ovalocytes Acanthocytes (Spur) Retic Count PT with INR INR Sodium Potassium Chloride Carbon Dioxide Anion Gap BUN Creatinine Est GFR (CKD-EPI)AfAm Est GFR (CKD-EPI)NonAf POC Glucometer 195 203 Random Glucose Calcium Phosphorus Magnesium Total Bilirubin AST ALT Alkaline Phosphatase Total Protein Albumin Blood Type Antibody Screen Crossmatch 11/16/18 11/16/18 11/16/18 05:30 06:34 09:50 WBC RBC Hgb Hct MCV MCH MCHC RDW Plt Count MPV Absolute Neuts (auto) Neutrophils % Neutrophils % (Manual) Band Neutrophils % Lymphocytes % Lymphocytes % (Manual) Monocytes % Monocytes % (Manual) Eosinophils % Eosinophils % (Manual) Basophils % Basophils % (Manual) Myelocytes % (Man) Promyelocytes % (Man) Blast Cells % (Manual) Nucleated RBC % Metamyelocytes Hypochromia Platelet Estimate Polychromasia Poikilocytosis Anisocytosis Microcytosis Macrocytosis Spherocytes Target Cells Tear Drop Cells Ovalocytes Acanthocytes (Spur) Retic Count PT with INR 15.40 H INR 1.30 H Sodium 134 L Potassium 3.9 Chloride 98 Carbon Dioxide 29 Anion Gap 8 BUN 104 H Creatinine 4.9 H Est GFR (CKD-EPI)AfAm 14.11 Est GFR (CKD-EPI)NonAf 12.18 POC Glucometer 198 Random Glucose 186 H Calcium 7.7 L Phosphorus 3.2 Magnesium 2.1 Total Bilirubin 0.5 AST 36 ALT 24 Alkaline Phosphatase 180 H Total Protein 5.5 L Albumin 1.7 L Blood Type Antibody Screen Crossmatch 11/16/18 10:24 WBC RBC Hgb Hct MCV MCH MCHC RDW Plt Count MPV Absolute Neuts (auto) Neutrophils % Neutrophils % (Manual) Band Neutrophils % Lymphocytes % Lymphocytes % (Manual) Monocytes % Monocytes % (Manual) Eosinophils % Eosinophils % (Manual) Basophils % Basophils % (Manual) Myelocytes % (Man) Promyelocytes % (Man) Blast Cells % (Manual) Nucleated RBC % Metamyelocytes Hypochromia Platelet Estimate Polychromasia Poikilocytosis Anisocytosis Microcytosis Macrocytosis Spherocytes Target Cells Tear Drop Cells Ovalocytes Acanthocytes (Spur) Retic Count PT with INR INR Sodium Potassium Chloride Carbon Dioxide Anion Gap BUN Creatinine Est GFR (CKD-EPI)AfAm Est GFR (CKD-EPI)NonAf POC Glucometer 130 Random Glucose Calcium Phosphorus Magnesium Total Bilirubin AST ALT Alkaline Phosphatase Total Protein Albumin Blood Type Antibody Screen Crossmatch Active Medications Generic Name Dose Route Start Last Admin Trade Name Freq PRN Reason Stop Dose Admin Acetaminophen 650 mg 10/28/18 16:55 11/14/18 10:40 Tylenol - PO 650 mg Q6H PRN Administration PAIN LEVEL 1-5 Ergocalciferol 50,000 unit 10/26/18 12:00 11/09/18 12:00 Drisdol - PO 50,000 unit Mo [facility] Administration Finasteride 5 mg 11/03/18 14:30 11/15/18 11:00 Proscar - PO 5 mg DAILY [facility] Administration Furosemide 40 mg 11/12/18 06:00 11/16/18 06:36 Lasix Injection - IVPUSH 40 mg BID@0600,1400 [facility] Administration Guaifenesin 5 ml 10/29/18 20:47 11/13/18 23:39 Diabetic Tussin Dm - PO 5 ml Q6H PRN Administration COUGH Hydralazine HCl 50 mg 10/26/18 14:00 11/16/18 06:36 Apresoline - PO 50 mg TID [facility] Administration Ceftriaxone Sodium 1 gm/ 50 mls @ 100 mls/hr 11/09/18 10:00 11/16/18 10:27 Dextrose IVPB 100 mls/hr DAILY [facility] Administration Protocol Sodium Chloride 250 mls @ 3,000 mls/hr 11/09/18 15:19 Normal Saline - IV PRN PRN Hypotension during Dialysis Insulin Aspart 1 vial 10/26/18 16:30 11/16/18 06:36 Novolog Vial Sliding Scale - SQ 2 units TIDAC [facility] Administration Protocol Isosorbide Mononitrate 30 mg 10/27/18 10:00 11/16/18 10:26 Imdur - PO 30 mg DAILY [facility] Administration Labetalol HCl 300 mg 11/15/18 10:53 11/16/18 10:26 Normodyne - PO 300 mg BID [facility] Administration Magnesium Oxide 800 mg 11/15/18 11:30 11/16/18 10:26 Mag-Ox - PO 11/17/18 10:01 800 mg DAILY [facility] Administration Nifedipine 30 mg 11/10/18 11:45 11/16/18 10:27 Procardia Xl - PO 30 mg DAILY [facility] Administration Pantoprazole Sodium 40 mg 11/13/18 22:00 11/16/18 10:27 Protonix - PO 40 mg BID [facility] Administration Polyethylene Glycol 17 gm 11/13/18 13:30 11/15/18 13:52 Miralax (For Daily Use) - PO 17 gm DAILY [facility] Administration Ranolazine 500 mg 10/26/18 22:00 11/16/18 10:27 Ranexa - PO 500 mg BID [facility] Administration Tamsulosin HCl 0.8 mg 11/04/18 08:30 11/15/18 11:00 Flomax - PO 0.8 mg DAILY@0830 [facility] Administration ASSESSMENT/PLAN: 58 y/o M w/PMH of CAD, HTN, HLD, NIDDM, CKD stage III, PAD admitted for CHF now requiring dialysis for ESRD -CHF exacerbation -lasix 40 mg IV bid -monitor i/os, daily weights -Leukocytosis -improved today -bibasilar atelectasis vs PNA -UTI with E. Coli -c/w ceftriaxone (day 11) -ID following -Recurrent Anemia -stable currently -GI following; FOBT+ -EGD/colonoscopy once improved -ESRD -on HD -nephrology following -kidney biopsy for today with IR -CAD -c/w ranexa -HTN -c/w hzn, labetalol, imdur, nifedipine -BPH -c/w flomax, finasteride -DVT ppx -SCDs -FEN -No fluids -Monitor electrolytes -renal diet -Dispo: monitor on tele Visit type - Emergency Visit Emergency Visit: Yes ED Registration Date: 10/26/18 Care time: The patient presented to the Emergency Department on the above date and was hospitalized for further evaluation of their emergent condition. - New Patient This patient is new to me today: No - Critical Care Critical Care patient: No
[2018-11-16] MEDS: ERGOCALCIFEROL (VITAMIN D2) 50,000 UNIT CAPSULE (FP) PO SCH (12:00)
--- NOTE | 2018-11-16 15:33 | PN ---
Progress Note, Physician History of Present Illness: S/P RENAL BX AWAKE, LETHARGIC SUPINE IN BED AFEBRILE WBC IMPROVED VALENTINE CATHETER IN PLACE NO DIARRHEA - Current Medication List Current Medications: Active Medications Acetaminophen (Tylenol -) 650 mg PO Q6H PRN PRN Reason: PAIN LEVEL 1-5 Last Admin: 11/14/18 10:40 Dose: 650 mg Ergocalciferol (Drisdol -) 50,000 unit PO Mo [facility] Last Admin: 11/16/18 12:00 Dose: Not Given Finasteride (Proscar -) 5 mg PO DAILY [facility] Last Admin: 11/16/18 09:00 Dose: Not Given Furosemide (Lasix Injection -) 40 mg IVPUSH BID@0600,1400 [facility] Last Admin: 11/16/18 14:30 Dose: 40 mg Guaifenesin (Diabetic Tussin Dm -) 5 ml PO Q6H PRN PRN Reason: COUGH Last Admin: 11/13/18 23:39 Dose: 5 ml Hydralazine HCl (Apresoline -) 50 mg PO TID [facility] Last Admin: 11/16/18 06:36 Dose: 50 mg Ceftriaxone Sodium 1 gm/ (Dextrose) 50 mls @ 100 mls/hr IVPB DAILY [facility]; Protocol Last Admin: 11/16/18 10:27 Dose: 100 mls/hr Sodium Chloride (Normal Saline -) 250 mls @ 3,000 mls/hr IV PRN PRN PRN Reason: Hypotension during Dialysis Insulin Aspart (Novolog Vial Sliding Scale -) 1 vial SQ TIDAC [facility]; Protocol Last Admin: 11/16/18 12:25 Dose: Not Given Isosorbide Mononitrate (Imdur -) 30 mg PO DAILY [facility] Last Admin: 11/16/18 10:26 Dose: 30 mg Labetalol HCl (Normodyne -) 300 mg PO BID [facility] Last Admin: 11/16/18 10:26 Dose: 300 mg Magnesium Oxide (Mag-Ox -) 800 mg PO DAILY [facility] Stop: 11/17/18 10:01 Last Admin: 11/16/18 10:26 Dose: 800 mg Nifedipine (Procardia Xl -) 30 mg PO DAILY [facility] Last Admin: 11/16/18 10:27 Dose: 30 mg Pantoprazole Sodium (Protonix -) 40 mg PO BID [facility] Last Admin: 11/16/18 10:27 Dose: 40 mg Polyethylene Glycol (Miralax (For Daily Use) -) 17 gm PO DAILY [facility] Last Admin: 11/16/18 09:00 Dose: Not Given Ranolazine (Ranexa -) 500 mg PO BID [facility] Last Admin: 11/16/18 10:27 Dose: 500 mg Tamsulosin HCl (Flomax -) 0.8 mg PO DAILY@0830 [facility] Last Admin: 11/16/18 09:00 Dose: Not Given - Objective Vital Signs: Vital Signs Temperature 97.4 F L 11/16/18 14:00 Pulse Rate 65 11/16/18 14:00 Respiratory Rate 22 H 11/16/18 14:00 Blood Pressure 130/65 11/16/18 14:00 O2 Sat by Pulse Oximetry (%) 100 11/16/18 13:14 Constitutional: Yes: No Distress Eyes: Yes: Conjunctiva Clear Cardiovascular: Yes: Regular Rate and Rhythm, S1, S2 Respiratory: Yes: Diminished Gastrointestinal: Yes: Normal Bowel Sounds, Soft. No: Tenderness Edema: Yes Labs: CBC, BMP 11/16/18 05:30 11/16/18 05:30 INR, PTT INR 1.30 (0.83-1.09) H 11/16/18 09:50 Assessment/Plan GRAM NEGATIVE BACTEREMIA/ SEPSIS UTI/ SEPSIS SECONDARY TO UTI LEUKOCYTOSIS IMPROVING RENAL FAILURE ANEMIA ? GI BLEED HX URINARY RETENTION SOURCE OF LEUKOCYTOSIS NOT CLEAR ? LEUKEMOID RXN FROM POSSIBLE GL BLEED NO DIARRHEA TO SUGGEST C DIFF CT CHEST +B/L EFFUSIONS, COMPRESSIVE ATELECTASIS REPEAT BC NO GROWTH CONTINUE CEFTRIAXONE
--- NOTE | 2018-11-16 15:40 | PN ---
Progress Note (short form) - Note Progress Note: [facility] Spoke to renal. CAn place permacath sindy NPo past midnight Luis Manuel Ponce DO
[2018-11-16] MEDS ORDERED: SODIUM CHLORIDE 250 ML IV PRN (16:27)
--- NOTE | 2018-11-16 16:34 | PN ---
Progress Note (short form) - Note Progress Note: Renal follow up for CKD Pt seen and examined at the bedside is fatigued no sob, cp for renal biopsy today Vital Signs Temperature 97.4 F L 11/16/18 14:00 Pulse Rate 65 11/16/18 14:00 Respiratory Rate 22 H 11/16/18 14:00 Blood Pressure 130/65 11/16/18 14:00 O2 Sat by Pulse Oximetry (%) 100 11/16/18 13:14 Intake & Output 11/13/18 11/14/18 11/15/18 11/16/18 23:59 23:59 23:59 23:59 Intake Total 780 740 660 Output Total 50 350 400 200 Balance 730 390 260 -200 Weight 119.295 kg 120.293 kg 119.839 kg 118.478 kg NAD RRR, no M/R Dec BS at lung bases, + rales soft obese, NT/ND + upper extremity edema ++ bilateral LE edema CBC, BMP 11/16/18 05:30 11/16/18 05:30 Current Medications Acetaminophen (Tylenol -) 650 mg PO Q6H PRN PRN Reason: PAIN LEVEL 1-5 Last Admin: 11/14/18 10:40 Dose: 650 mg Epoetin [place] (Epogen -) 20,000 unit IVPUSH ONCE ONE Stop: 11/17/18 06:01 Ergocalciferol (Drisdol -) 50,000 unit PO Mo [facility] Last Admin: 11/16/18 12:00 Dose: Not Given Finasteride (Proscar -) 5 mg PO DAILY [facility] Last Admin: 11/16/18 09:00 Dose: Not Given Furosemide (Lasix Injection -) 40 mg IVPUSH BID@0600,1400 [facility] Last Admin: 11/16/18 14:30 Dose: 40 mg Guaifenesin (Diabetic Tussin Dm -) 5 ml PO Q6H PRN PRN Reason: COUGH Last Admin: 11/13/18 23:39 Dose: 5 ml Hydralazine HCl (Apresoline -) 50 mg PO TID [facility] Last Admin: 11/16/18 06:36 Dose: 50 mg Ceftriaxone Sodium 1 gm/ (Dextrose) 50 mls @ 100 mls/hr IVPB DAILY [facility]; Protocol Last Admin: 11/16/18 10:27 Dose: 100 mls/hr Sodium Chloride (Normal Saline -) 250 mls @ 3,000 mls/hr IV PRN PRN PRN Reason: Hypotension during Dialysis Sodium Chloride (Normal Saline -) 250 mls @ 3,000 mls/hr IV PRN PRN PRN Reason: Hypotension during Dialysis Stop: 11/17/18 16:27 Insulin Aspart (Novolog Vial Sliding Scale -) 1 vial SQ TIDAC [facility]; Protocol Last Admin: 11/16/18 12:25 Dose: Not Given Isosorbide Mononitrate (Imdur -) 30 mg PO DAILY [facility] Last Admin: 11/16/18 10:26 Dose: 30 mg Labetalol HCl (Normodyne -) 300 mg PO BID [facility] Last Admin: 11/16/18 10:26 Dose: 300 mg Magnesium Oxide (Mag-Ox -) 800 mg PO DAILY [facility] Stop: 11/17/18 10:01 Last Admin: 11/16/18 10:26 Dose: 800 mg Nifedipine (Procardia Xl -) 30 mg PO DAILY [facility] Last Admin: 11/16/18 10:27 Dose: 30 mg Pantoprazole Sodium (Protonix -) 40 mg PO BID [facility] Last Admin: 11/16/18 10:27 Dose: 40 mg Polyethylene Glycol (Miralax (For Daily Use) -) 17 gm PO DAILY [facility] Last Admin: 11/16/18 09:00 Dose: Not Given Ranolazine (Ranexa -) 500 mg PO BID [facility] Last Admin: 11/16/18 10:27 Dose: 500 mg Tamsulosin HCl (Flomax -) 0.8 mg PO DAILY@0830 [facility] Last Admin: 11/16/18 09:00 Dose: Not Given 58 year old gentleman with hx of CKD with proteinuria, CHF, CAD s/p PCI, Hypertension, hyperlipidemia who preesnted from home with LE swelling and sob and admitted for CHF exacerbation with Cr of 2.4-2.6. #CHF exacerbation/gross fluid overload #GABI w/o clear etiology #Proteinuria (nephrotic range proteinuira) #CAD #HLD for HD tomorrow in AM will transfuse 2 prbc with HD renal biopsy performed today at this time it appears as through he will need continued HD as BUN/Cr continues to rise considerably between dialysis treatments tunneled HD catheter to be placed tomorrow Thank you Mansoor Quiroz DO
[2018-11-17] MEDS: FUROSEMIDE 40 MG/4 ML INJECTABLE VIAL IVPUSH SCH ×2 (06:11→17:48)
[2018-11-17] MEDS: hydrALAZINE HCL 50 MG TABLET (FP) PO SCH ×3 (06:11→22:30)
[2018-11-17] MEDS: INSULIN SLIDING SCALE (NOVOLOG) 1 VIAL SQ SCH ×3 (06:12→17:47)
[2018-11-17 07:08] LABS: BASO % 0.7 % (0-2.0); EOS % 0.9 % (0-4.5); HEMATOCRIT 22.6 % (35.4-49); HEMOGLOBIN 7.4 GM/dL (11.7-16.9); LYMPH % 8.2 % (8-40); MCH 29.1 pg (25.7-33.7); MEAN CELL VOLUME 88.2 fl (80-96); MEAN PLT VOLUME 7.2 fl (7.5-11.1); MONO % 9.3 % (3.8-10.2); NEUT % 80.9 % (42.8-82.8); PLATELET COUNT 327 K/MM3 (134-434); RBC 2.56 M/mm3 (4.00-5.60); RDW 15.7 % (11.9-15.9); WHITE BLOOD COUNT 8.4 K/mm3 (4.0-10.0)
[2018-11-17 07:52] LABS: ALBUMIN 1.8 g/dl (3.4-5.0); BILIRUBIN,TOTAL 0.4 mg/dL (0.2-1); CALCIUM 7.8 mg/dL (8.5-10.1); CREATININE 5.2 mg/dL (0.55-1.3); MAGNESIUM 2.3 mg/dL (1.8-2.4); POTASSIUM 3.9 mmol/L (3.5-5.1); TOT PROT 5.7 g/dl (6.4-8.2)
[2018-11-17] MEDS ORDERED: DEXTROSE 5%-WATER - 50 ML IVPB ONE (09:20)
[2018-11-17] MEDS ORDERED: cefTRIAXone SODIUM 1 GM VIAL ONE (09:20)
[2018-11-17] MEDS: LABETALOL HCL 200 MG TABLET (FP) PO SCH ×2 (10:05→22:30)
[2018-11-17] MEDS: RANOLAZINE E.R. 500 MG TABLET (FP) PO SCH ×2 (10:05→22:30)
[2018-11-17] MEDS: CEFTRIAXONE 1 GM in DEXTROSE 5%-WATER - 50 ML IVPB SCH (10:05)
[2018-11-17] MEDS: MAGNESIUM OXIDE 400 MG TABLET (FP) PO SCH (10:05)
[2018-11-17] MEDS: FINASTERIDE 5 MG TABLET (FP) PO SCH (10:05)
[2018-11-17] MEDS: TAMSULOSIN HCL 0.4 MG CAP PO SCH (10:06)
[2018-11-17] MEDS: PANTOPRAZOLE 40 MG TABLET (FP) PO SCH ×2 (10:06→22:31)
[2018-11-17] MEDS: NIFEdipine E.R. 30 MG TABLET (FP) PO SCH (10:06)
[2018-11-17] MEDS: ISOSORBIDE MONONITRATE 30 MG TAB.SR.24H (FP) PO SCH (10:06)
[2018-11-17] MEDS ORDERED: EPOETIN ALFA 20,000 UNIT/1 ML VIAL IVPUSH ONE (11:15)
--- NOTE | 2018-11-17 11:37 | PN ---
Progress Note (short form) - Note Progress Note: s: no chest pain, palps, dyspnea TELE:NSR, PVCs Current Medications Acetaminophen (Tylenol -) 650 mg PO Q6H PRN PRN Reason: PAIN LEVEL 1-5 Last Admin: 11/14/18 10:40 Dose: 650 mg Ergocalciferol (Drisdol -) 50,000 unit PO Mo [facility] Last Admin: 11/16/18 12:00 Dose: Not Given Finasteride (Proscar -) 5 mg PO DAILY [facility] Last Admin: 11/17/18 10:05 Dose: 5 mg Furosemide (Lasix Injection -) 40 mg IVPUSH BID@0600,1400 [facility] Last Admin: 11/17/18 06:11 Dose: 40 mg Guaifenesin (Diabetic Tussin Dm -) 5 ml PO Q6H PRN PRN Reason: COUGH Last Admin: 11/13/18 23:39 Dose: 5 ml Hydralazine HCl (Apresoline -) 50 mg PO TID [facility] Last Admin: 11/17/18 06:11 Dose: 50 mg Ceftriaxone Sodium 1 gm/ (Dextrose) 50 mls @ 100 mls/hr IVPB DAILY [facility]; Protocol Last Admin: 11/17/18 10:05 Dose: 100 mls/hr Sodium Chloride (Normal Saline -) 250 mls @ 3,000 mls/hr IV PRN PRN PRN Reason: Hypotension during Dialysis Sodium Chloride (Normal Saline -) 250 mls @ 3,000 mls/hr IV PRN PRN PRN Reason: Hypotension during Dialysis Stop: 11/17/18 16:27 Insulin Aspart (Novolog Vial Sliding Scale -) 1 vial SQ TIDAC [facility]; Protocol Last Admin: 11/17/18 06:12 Dose: Not Given Isosorbide Mononitrate (Imdur -) 30 mg PO DAILY [facility] Last Admin: 11/17/18 10:06 Dose: 30 mg Labetalol HCl (Normodyne -) 300 mg PO BID [facility] Last Admin: 11/17/18 10:05 Dose: 300 mg Nifedipine (Procardia Xl -) 30 mg PO DAILY [facility] Last Admin: 11/17/18 10:06 Dose: 30 mg Pantoprazole Sodium (Protonix -) 40 mg PO BID [facility] Last Admin: 11/17/18 10:06 Dose: 40 mg Polyethylene Glycol (Miralax (For Daily Use) -) 17 gm PO DAILY [facility] Last Admin: 11/16/18 09:00 Dose: Not Given Ranolazine (Ranexa -) 500 mg PO BID [facility] Last Admin: 11/17/18 10:05 Dose: 500 mg Tamsulosin HCl (Flomax -) 0.8 mg PO DAILY@0830 [facility] Last Admin: 11/17/18 10:06 Dose: 0.8 mg Vital Signs Period Temp Pulse Resp BP Sys/Lopez Pulse Ox Last 24 Hr 97.4 F-98.4 F 65-75 17-22 130-156/65-79 100-100 Constitutional: Yes: No Distress, Calm Eyes: Yes: Conjunctiva Clear Cardiovascular: Yes: Regular Rate and Rhythm Respiratory: Yes: CTA Bilaterally Gastrointestinal: Yes: Soft (NT) Edema: Yes Edema: LLE: 1+, RLE: 1+ Neurological: Yes: Alert, Oriented ...Motor Strength: WNL EKG: Image Reviewed (NSR, PVCs) Assessment/Plan Assessment/Plan 1. Acute systolic HF exacerbation: - EF 40-45% - cont labetolol, not on ACEI/ARB for CKD - continue hydralzine and imdur. - Hypoalbuminemia may also be contributing to edema - edema improving with HD, weight down, volume management per renal 2. CKD - renal following - s/p kidney biopsy - HD per renal 3. CAD: - s/p FER most recently 09/2017, 10/2017 - restart aspirin and plavix when able 4. HTN: - stable 5. Anemia: -plans for egd , no cardiac contraindications
[2018-11-17 11:40] LABS: RETICULOCYTES 5.62 % (0.5-1.5)
[2018-11-17 12:49] LABS: MCH 28.6 pg (25.7-33.7); MCHC 31.9 g/dl (32.0-35.9); MEAN CELL VOLUME 89.5 fl (80-96); MEAN PLT VOLUME 7.5 fl (7.5-11.1); PLATELET COUNT 315 K/MM3 (134-434); RBC 2.46 M/mm3 (4.00-5.60); RDW 16.3 % (11.9-15.9); WHITE BLOOD COUNT 8.2 K/mm3 (4.0-10.0)
--- NOTE | 2018-11-17 13:05 | PN ---
Teaching Attending Note Name of Resident: Harsh Ponce ATTENDING PHYSICIAN STATEMENT I saw and evaluated the patient. I reviewed the resident's note and discussed the case with the resident. I agree with the resident's findings and plan as documented with exceptions below. SUBJECTIVE: Patient seen and examined. No complaints. Wanting to get an update of his current clinical condition, more participation in the interview today. OBJECTIVE: Vital Signs Period Temp Pulse Resp BP Sys/Lopez Pulse Ox Last 24 Hr 97.4 F-98.4 F 65-75 17-22 130-156/65-76 100-100 Intake & Output 11/14/18 11/15/18 11/16/18 11/17/18 23:59 23:59 23:59 23:59 Intake Total 740 660 360 Output Total 350 400 500 250 Balance 390 260 -140 -250 Weight 265 lb 3.2 oz 264 lb 3.2 oz 261 lb 3.2 oz 262 lb 12.8 oz General: lying in bed in no acute distress Chest: decreased breath sounds at bases, Abdomen:soft, NT, improved distension Extremities: 2+ pedal pitting edema, improved from before Home Medications Medication Instructions Recorded Glipizide [Glucotrol] 5 mg PO BID 04/08/17 Atorvastatin Ca [Lipitor] 40 mg PO HS 09/25/18 Ergocalciferol (Vitamin D2) 50,000 unit PO WEEKLY 09/25/18 [Vitamin D2] Tamsulosin HCl [Flomax] 0.4 mg PO DAILY 09/25/18 Furosemide [Lasix -] 80 mg PO DAILY 30 Days #60 tablet 10/07/18 Labetalol HCl [Normodyne -] 300 mg PO BID 30 Days #180 tablet 10/07/18 hydrALAZINE HCL [Apresoline -] 50 mg PO TID 30 Days #90 tablet 10/07/18 Aspirin [Aspirin EC] 81 mg PO DAILY 10/11/18 Clopidogrel Bisulfate [Plavix -] 75 mg PO DAILY 10/11/18 Isosorbide Mononitrate [Imdur -] 30 mg PO DAILY 10/11/18 Losartan Potassium 50 mg PO DAILY 10/11/18 Nifedipine ER [Procardia XL -] 90 mg PO DAILY 10/11/18 Ranolazine [Ranexa -] 500 mg PO BID 10/11/18 Active Medications Acetaminophen (Tylenol -) 650 mg PO Q6H PRN PRN Reason: PAIN LEVEL 1-5 Last Admin: 11/14/18 10:40 Dose: 650 mg Ergocalciferol (Drisdol -) 50,000 unit PO Mo [facility] Last Admin: 11/16/18 12:00 Dose: Not Given Finasteride (Proscar -) 5 mg PO DAILY [facility] Last Admin: 11/17/18 10:05 Dose: 5 mg Furosemide (Lasix Injection -) 40 mg IVPUSH BID@0600,1400 [facility] Last Admin: 11/17/18 06:11 Dose: 40 mg Guaifenesin (Diabetic Tussin Dm -) 5 ml PO Q6H PRN PRN Reason: COUGH Last Admin: 11/13/18 23:39 Dose: 5 ml Hydralazine HCl (Apresoline -) 50 mg PO TID [facility] Last Admin: 11/17/18 06:11 Dose: 50 mg Ceftriaxone Sodium 1 gm/ (Dextrose) 50 mls @ 100 mls/hr IVPB DAILY [facility]; Protocol Last Admin: 11/17/18 10:05 Dose: 100 mls/hr Sodium Chloride (Normal Saline -) 250 mls @ 3,000 mls/hr IV PRN PRN PRN Reason: Hypotension during Dialysis Sodium Chloride (Normal Saline -) 250 mls @ 3,000 mls/hr IV PRN PRN PRN Reason: Hypotension during Dialysis Stop: 11/17/18 16:27 Insulin Aspart (Novolog Vial Sliding Scale -) 1 vial SQ TIDAC [facility]; Protocol Last Admin: 11/17/18 06:12 Dose: Not Given Isosorbide Mononitrate (Imdur -) 30 mg PO DAILY [facility] Last Admin: 11/17/18 10:06 Dose: 30 mg Labetalol HCl (Normodyne -) 300 mg PO BID [facility] Last Admin: 11/17/18 10:05 Dose: 300 mg Nifedipine (Procardia Xl -) 30 mg PO DAILY [facility] Last Admin: 11/17/18 10:06 Dose: 30 mg Pantoprazole Sodium (Protonix -) 40 mg PO BID [facility] Last Admin: 11/17/18 10:06 Dose: 40 mg Polyethylene Glycol (Miralax (For Daily Use) -) 17 gm PO DAILY [facility] Last Admin: 11/16/18 09:00 Dose: Not Given Ranolazine (Ranexa -) 500 mg PO BID [facility] Last Admin: 11/17/18 10:05 Dose: 500 mg Tamsulosin HCl (Flomax -) 0.8 mg PO DAILY@0830 [facility] Last Admin: 11/17/18 10:06 Dose: 0.8 mg Laboratory Results - last 24 hr 11/15/18 11/16/18 11/17/18 06:23 17:10 05:30 WBC RBC Hgb Hct MCV MCH MCHC RDW Plt Count MPV Absolute Neuts (auto) Neutrophils % Lymphocytes % Monocytes % Eosinophils % Basophils % Nucleated RBC % Retic Count Haptoglobin 276 H Sodium Potassium Chloride Carbon Dioxide Anion Gap BUN Creatinine Est GFR (CKD-EPI)AfAm Est GFR (CKD-EPI)NonAf POC Glucometer 135 Random Glucose Calcium Magnesium Ferritin Total Bilirubin AST ALT Alkaline Phosphatase LD Total 250 H Total Protein Albumin Blood Type Antibody Screen Direct Antiglob Test Crossmatch 11/17/18 11/17/18 11/17/18 05:30 05:30 05:30 WBC 8.4 RBC 2.56 L Hgb 7.4 L Hct 22.6 L MCV 88.2 MCH 29.1 MCHC 33.0 RDW 15.7 Plt Count 327 MPV 7.2 L Absolute Neuts (auto) 6.8 Neutrophils % 80.9 Lymphocytes % 8.2 D Monocytes % 9.3 Eosinophils % 0.9 Basophils % 0.7 Nucleated RBC % 0 Retic Count 5.62 H Haptoglobin Sodium 134 L Potassium 3.9 Chloride 98 Carbon Dioxide 28 Anion Gap 9 BUN 122 H* Creatinine 5.2 H Est GFR (CKD-EPI)AfAm 13.14 Est GFR (CKD-EPI)NonAf 11.33 POC Glucometer Random Glucose 180 H Calcium 7.8 L Magnesium 2.3 Ferritin 628.8 H Total Bilirubin 0.4 AST 37 ALT 48 Alkaline Phosphatase 181 H LD Total Total Protein 5.7 L Albumin 1.8 L Blood Type O NEGATIVE Antibody Screen Negative Direct Antiglob Test Negative Crossmatch See Detail 11/17/18 11/17/18 06:10 11:45 WBC 8.2 RBC 2.46 L Hgb 7.0 L Hct 22.0 L MCV 89.5 MCH 28.6 MCHC 31.9 L RDW 16.3 H Plt Count 315 MPV 7.5 Absolute Neuts (auto) Neutrophils % Lymphocytes % Monocytes % Eosinophils % Basophils % Nucleated RBC % Retic Count Haptoglobin Sodium Potassium Chloride Carbon Dioxide Anion Gap BUN Creatinine Est GFR (CKD-EPI)AfAm Est GFR (CKD-EPI)NonAf POC Glucometer 182 Random Glucose Calcium Magnesium Ferritin Total Bilirubin AST ALT Alkaline Phosphatase LD Total Total Protein Albumin Blood Type Antibody Screen Direct Antiglob Test Crossmatch Microbiology 11/12/18 12:45 Blood - Peripheral Venous Blood Culture - Final NO GROWTH AFTER 5 DAYS INCUBATION 11/12/18 12:51 Blood - Peripheral Venous Blood Culture - Final NO GROWTH AFTER 5 DAYS INCUBATION 11/13/18 10:00 Blood - Shiley Catheter Blood Culture - Preliminary NO GROWTH OBTAINED AFTER 96 HOURS, INCUBATION TO CONTINUE FOR 1 DAYS. 11/13/18 22:30 Blood - Shiley Catheter Blood Culture - Preliminary NO GROWTH OBTAINED AFTER 72 HOURS, INCUBATION TO CONTINUE FOR 2 DAYS. 11/13/18 15:45 Urine - Urine - Catheterized Urine Culture - Final NO GROWTH OBTAINED 11/07/18 07:35 Blood - Peripheral Venous Blood Culture - Final NO GROWTH AFTER 5 DAYS INCUBATION 11/07/18 08:00 Blood - Peripheral Venous Blood Culture - Final NO GROWTH AFTER 5 DAYS INCUBATION 11/04/18 13:00 Blood - Peripheral Venous Blood Culture - Final NO GROWTH AFTER 5 DAYS INCUBATION 11/05/18 04:10 Urine - Urine - Catheterized Urine Culture - Final Escherichia Coli Strep Agalactiae Group B 11/04/18 12:53 Blood - Peripheral Venous Blood Culture - Final Escherichia Coli ASSESSMENT AND PLAN: 58 yom with PMX of CAD s/p Stage FER PCI 09/2017/10/2017, HTN, HLD, NIDDM, CKD stage III, (recent renal dysfunction, was planned for possible PCI), PAD s/p SFA PCI 2016 admitted with CHF -Leucocytosis, infection vs atelectasis, vs leukemoid reaction from GI bleed -Bibasilar atelectasis, likely from poor effort/pleural effusions, less likely PNA -Acute systolic heart failure exacerbation, on new HD -ESRD on new HD -E. Coli UTI/sepsis with bacteremia -Recurrent severe anemia -CAD s/p staged PCI 09/2017 and 10/2017 -Cardiomyopathy, suspect ischemia EF 40-45% -Left pleural effusion, suspect transudative based on current presentation -HTN -HLD -NIDDM -CKD stage III -PAD s/p SFA PCI 2016 Plan: WBC improved Repeat cultures neg . ID input noted. Ceftriaxone day 12. CT Chest/A/P noted. Renal input noted. ongoing Lasix and HD. s/p Renal biopsy 11/16, follow up. For permacath placement today. H/h overall stable with no gross evidence of bleed. S/p multiple PRBC with overall suboptimal response. Discuss with GI about possible EGD/Colonoscopy prior to dc. Strict I/Os and daily weights. Cardiology input noted. Dc haider, voiding trial. Continue flomax/finasteride. Renal/Bladder US noted. Encourage OOB and incentive spirometry. ASA/plavix on hold for renal biopsy, now with bleed concerns. LUE duplex neg for DVT Continue Labetalol/hydralazine/nifedipine/ranexa/Imdur. ISS, diabetic diet DVTPPX SCDs given recurrent anemia and concerns for GI bleed, start heparin post permacath if no concerns. PT eval, encourage OOB, incentive spirometry Dispo pending clinical improvement. Plan discussed with patient and nursing, all questions answered.
[2018-11-17 13:22] LABS: CALCIUM 7.8 mg/dL (8.5-10.1); CREATININE 5.3 mg/dL (0.55-1.3); PHOSPHOROUS 4.1 mg/dL (2.5-4.9)
--- NOTE | 2018-11-17 15:05 | PN ---
Physical Exam: SUBJECTIVE: Patient seen and examined at bedside. Says he has a cough that's been here for sometime but unable to tell me exactly how long. He denies other complaints. OBJECTIVE: Vital Signs Temperature 98.1 F 11/17/18 14:00 Pulse Rate 68 11/17/18 14:00 Respiratory Rate 20 11/17/18 14:00 Blood Pressure 143/79 11/17/18 14:00 O2 Sat by Pulse Oximetry (%) 100 11/17/18 09:00 GENERAL: The patient is awake, alert, and fully oriented, in no acute distress. ENT: Ears normal, nares patent LUNGS: Poor inspiratory effort, decreased breath sounds at bases. HEART: Regular rate and rhythm, S1, S2 without murmur, rub or gallop. ABDOMEN: Soft, nontender, nondistended, normoactive bowel sounds EXTREMITIES: warm, well-perfused, 1+ b/l pitting edema. NEUROLOGICAL: Cranial nerves II through XII grossly intact. PSYCH: Flat affect SKIN: Warm, dry Laboratory Results - last 24 hr 11/15/18 11/16/18 11/17/18 06:23 17:10 05:30 WBC RBC Hgb Hct MCV MCH MCHC RDW Plt Count MPV Absolute Neuts (auto) Neutrophils % Lymphocytes % Monocytes % Eosinophils % Basophils % Nucleated RBC % Retic Count Haptoglobin 276 H Sodium Potassium Chloride Carbon Dioxide Anion Gap BUN Creatinine Est GFR (CKD-EPI)AfAm Est GFR (CKD-EPI)NonAf POC Glucometer 135 Random Glucose Calcium Phosphorus Magnesium Ferritin Total Bilirubin AST ALT Alkaline Phosphatase LD Total 250 H Total Protein Albumin Blood Type Antibody Screen Direct Antiglob Test Crossmatch 11/17/18 11/17/18 11/17/18 05:30 05:30 05:30 WBC 8.4 RBC 2.56 L Hgb 7.4 L Hct 22.6 L MCV 88.2 MCH 29.1 MCHC 33.0 RDW 15.7 Plt Count 327 MPV 7.2 L Absolute Neuts (auto) 6.8 Neutrophils % 80.9 Lymphocytes % 8.2 D Monocytes % 9.3 Eosinophils % 0.9 Basophils % 0.7 Nucleated RBC % 0 Retic Count 5.62 H Haptoglobin Sodium 134 L Potassium 3.9 Chloride 98 Carbon Dioxide 28 Anion Gap 9 BUN 122 H* Creatinine 5.2 H Est GFR (CKD-EPI)AfAm 13.14 Est GFR (CKD-EPI)NonAf 11.33 POC Glucometer Random Glucose 180 H Calcium 7.8 L Phosphorus Magnesium 2.3 Ferritin 628.8 H Total Bilirubin 0.4 AST 37 ALT 48 Alkaline Phosphatase 181 H LD Total Total Protein 5.7 L Albumin 1.8 L Blood Type O NEGATIVE Antibody Screen Negative Direct Antiglob Test Negative Crossmatch See Detail 11/17/18 11/17/18 11/17/18 06:10 11:45 11:45 WBC 8.2 RBC 2.46 L Hgb 7.0 L Hct 22.0 L MCV 89.5 MCH 28.6 MCHC 31.9 L RDW 16.3 H Plt Count 315 MPV 7.5 Absolute Neuts (auto) Neutrophils % Lymphocytes % Monocytes % Eosinophils % Basophils % Nucleated RBC % Retic Count Haptoglobin Sodium 138 Potassium 4.0 Chloride 98 Carbon Dioxide 32 Anion Gap 8 BUN 121 H* Creatinine 5.3 H Est GFR (CKD-EPI)AfAm 12.84 Est GFR (CKD-EPI)NonAf 11.08 POC Glucometer 182 Random Glucose 159 H Calcium 7.8 L Phosphorus 4.1 Magnesium Ferritin Total Bilirubin AST ALT Alkaline Phosphatase LD Total Total Protein Albumin Blood Type Antibody Screen Direct Antiglob Test Crossmatch Active Medications Generic Name Dose Route Start Last Admin Trade Name Freq PRN Reason Stop Dose Admin Acetaminophen 650 mg 10/28/18 16:55 11/14/18 10:40 Tylenol - PO 650 mg Q6H PRN Administration PAIN LEVEL 1-5 Ergocalciferol 50,000 unit 10/26/18 12:00 11/16/18 12:00 Drisdol - PO Not Given Mo [facility] Finasteride 5 mg 11/03/18 14:30 11/17/18 10:05 Proscar - PO 5 mg DAILY [facility] Administration Furosemide 40 mg 11/12/18 06:00 11/17/18 06:11 Lasix Injection - IVPUSH 40 mg BID@0600,1400 [facility] Administration Guaifenesin 5 ml 10/29/18 20:47 11/13/18 23:39 Diabetic Tussin Dm - PO 5 ml Q6H PRN Administration COUGH Hydralazine HCl 50 mg 10/26/18 14:00 11/17/18 06:11 Apresoline - PO 50 mg TID [facility] Administration Ceftriaxone Sodium 1 gm/ 50 mls @ 100 mls/hr 11/09/18 10:00 11/17/18 10:05 Dextrose IVPB 100 mls/hr DAILY [facility] Administration Protocol Sodium Chloride 250 mls @ 3,000 mls/hr 11/09/18 15:19 Normal Saline - IV PRN PRN Hypotension during Dialysis Sodium Chloride 250 mls @ 3,000 mls/hr 11/16/18 16:27 Normal Saline - IV 11/17/18 16:27 PRN PRN Hypotension during Dialysis Insulin Aspart 1 vial 10/26/18 16:30 11/17/18 06:12 Novolog Vial Sliding Scale - SQ Not Given TIDAC [facility] Protocol Isosorbide Mononitrate 30 mg 10/27/18 10:00 11/17/18 10:06 Imdur - PO 30 mg DAILY [facility] Administration Labetalol HCl 300 mg 11/15/18 10:53 11/17/18 10:05 Normodyne - PO 300 mg BID [facility] Administration Nifedipine 30 mg 11/10/18 11:45 11/17/18 10:06 Procardia Xl - PO 30 mg DAILY [facility] Administration Pantoprazole Sodium 40 mg 11/13/18 22:00 11/17/18 10:06 Protonix - PO 40 mg BID [facility] Administration Polyethylene Glycol 17 gm 11/13/18 13:30 11/16/18 09:00 Miralax (For Daily Use) - PO Not Given DAILY [facility] Ranolazine 500 mg 10/26/18 22:00 11/17/18 10:05 Ranexa - PO 500 mg BID [facility] Administration Tamsulosin HCl 0.8 mg 11/04/18 08:30 11/17/18 10:06 Flomax - PO 0.8 mg DAILY@0830 [facility] Administration ASSESSMENT/PLAN: 58 y/o M w/PMH of CAD, HTN, HLD, NIDDM, CKD stage III, PAD admitted for CHF now requiring dialysis for ESRD -CHF exacerbation -lasix 40 mg IV bid -monitor i/os, daily weights -Leukocytosis -improved today -bibasilar atelectasis vs PNA -UTI with E. Coli -c/w ceftriaxone (day 12) -ID following -Recurrent Anemia -stable currently -GI following; FOBT+ -EGD/colonoscopy once improved -ESRD -on HD -nephrology following -kidney biopsy on 11/16. f/u results -CAD -c/w ranexa -HTN -c/w hzn, labetalol, imdur, nifedipine -BPH -c/w flomax, finasteride -DVT ppx -SCDs -FEN -No fluids -Monitor electrolytes -renal diet -Dispo: monitor on tele Visit type - Emergency Visit Emergency Visit: Yes ED Registration Date: 10/26/18 Care time: The patient presented to the Emergency Department on the above date and was hospitalized for further evaluation of their emergent condition. - New Patient This patient is new to me today: No - Critical Care Critical Care patient: No
--- NOTE | 2018-11-17 15:27 | PN ---
Progress Note (short form) - Note Progress Note: Renal follow up for CKD Pt seen and examined at the bedside during dialysis BP stable, goal Uf is 4L getting 2 prbc transfusion with Hd s/p renal biopsy yesterday no acute complaints Vital Signs Temperature 98.1 F 11/17/18 14:00 Pulse Rate 71 11/17/18 15:10 Respiratory Rate 18 11/17/18 15:10 Blood Pressure 149/52 L 11/17/18 15:10 O2 Sat by Pulse Oximetry (%) 100 11/17/18 09:00 Intake & Output 11/14/18 11/15/18 11/16/18 11/17/18 23:59 23:59 23:59 23:59 Intake Total 740 660 360 Output Total 350 400 500 250 Balance 390 260 -140 -250 Weight 120.293 kg 119.839 kg 118.478 kg 119.204 kg NAD RRR, no M/R Dec BS at lung bases, + rales soft obese, NT/ND + upper extremity edema ++ bilateral LE edema CBC, BMP 11/17/18 11:45 11/17/18 11:45 Current Medications Acetaminophen (Tylenol -) 650 mg PO Q6H PRN PRN Reason: PAIN LEVEL 1-5 Last Admin: 11/14/18 10:40 Dose: 650 mg Ergocalciferol (Drisdol -) 50,000 unit PO Mo [facility] Last Admin: 11/16/18 12:00 Dose: Not Given Finasteride (Proscar -) 5 mg PO DAILY [facility] Last Admin: 11/17/18 10:05 Dose: 5 mg Furosemide (Lasix Injection -) 40 mg IVPUSH BID@0600,1400 [facility] Last Admin: 11/17/18 06:11 Dose: 40 mg Guaifenesin (Diabetic Tussin Dm -) 5 ml PO Q6H PRN PRN Reason: COUGH Last Admin: 11/13/18 23:39 Dose: 5 ml Hydralazine HCl (Apresoline -) 50 mg PO TID [facility] Last Admin: 11/17/18 06:11 Dose: 50 mg Ceftriaxone Sodium 1 gm/ (Dextrose) 50 mls @ 100 mls/hr IVPB DAILY [facility]; Protocol Last Admin: 11/17/18 10:05 Dose: 100 mls/hr Sodium Chloride (Normal Saline -) 250 mls @ 3,000 mls/hr IV PRN PRN PRN Reason: Hypotension during Dialysis Sodium Chloride (Normal Saline -) 250 mls @ 3,000 mls/hr IV PRN PRN PRN Reason: Hypotension during Dialysis Stop: 11/17/18 16:27 Insulin Aspart (Novolog Vial Sliding Scale -) 1 vial SQ TIDAC [facility]; Protocol Last Admin: 11/17/18 06:12 Dose: Not Given Isosorbide Mononitrate (Imdur -) 30 mg PO DAILY [facility] Last Admin: 11/17/18 10:06 Dose: 30 mg Labetalol HCl (Normodyne -) 300 mg PO BID [facility] Last Admin: 11/17/18 10:05 Dose: 300 mg Nifedipine (Procardia Xl -) 30 mg PO DAILY [facility] Last Admin: 11/17/18 10:06 Dose: 30 mg Pantoprazole Sodium (Protonix -) 40 mg PO BID [facility] Last Admin: 11/17/18 10:06 Dose: 40 mg Polyethylene Glycol (Miralax (For Daily Use) -) 17 gm PO DAILY [facility] Last Admin: 11/16/18 09:00 Dose: Not Given Ranolazine (Ranexa -) 500 mg PO BID [facility] Last Admin: 11/17/18 10:05 Dose: 500 mg Tamsulosin HCl (Flomax -) 0.8 mg PO DAILY@0830 [facility] Last Admin: 11/17/18 10:06 Dose: 0.8 mg 58 year old gentleman with hx of CKD with proteinuria, CHF, CAD s/p PCI, Hypertension, hyperlipidemia who preesnted from home with LE swelling and sob and admitted for CHF exacerbation with Cr of 2.4-2.6. #CHF exacerbation/gross fluid overload #GABI w/o clear etiology #Proteinuria (nephrotic range proteinuira) #CAD #HLD tolerating Hd well this am will need continued HD as GABI has not resolved tunneled HD catheter to be placed by vascular surgery biopsy performed yesterday, hopefully will have preliminary results by tomorrow morning Thank you Mansoor Quiroz DO
--- NOTE | 2018-11-17 16:02 | PN.GI ---
GI Progress Note Subjective: No acute events Transfused 2 U PRBC during HD today Going for Permacath this afternoon - Objective Vital Signs: Vital Signs Temperature 98.1 F 11/17/18 14:00 Pulse Rate 71 11/17/18 15:10 Respiratory Rate 18 11/17/18 15:10 Blood Pressure 149/52 L 11/17/18 15:10 O2 Sat by Pulse Oximetry (%) 100 11/17/18 09:00 Constitutional: Calm Eyes: No: Sclera Icterus Cardiovascular: Yes: Regular Rate and Rhythm Respiratory: Yes: Diminished (at bases b/l) Gastrointestinal Inspection: No: Distention ...Auscultate: Yes: Normoactive Bowel Sounds ...Palpate: Yes: Soft. No: Tenderness ...Percussion: No: Tympanitic Edema: Yes Neurological: Yes: Alert Labs: CBC, BMP 11/17/18 11:45 11/17/18 11:45 INR, PTT INR 1.30 (0.83-1.09) H 11/16/18 09:50 Hepatic Panel Total Bilirubin 0.4 mg/dL (0.2-1) 11/17/18 05:30 AST 37 U/L (15-37) 11/17/18 05:30 ALT 48 U/L (13-61) 11/17/18 05:30 Alkaline Phosphatase 181 U/L (45-117) H 11/17/18 05:30 Albumin 1.8 g/dl (3.4-5.0) L 11/17/18 05:30 Problem List - Problems (1) Anemia Assessment/Plan: Plan for EGD tomorrow. If unrevealing, colonoscopy. Discussed with Mr. Prater. DIscussed potential risks of the procedure like but not limited to bleeding, perforation requiring surgery to repair, infection, sedation medication effects all of which dould be potentially life threatening. he has agreed to the procedure Monitor H/H BID PPI NPO after midnight, AM labs Code(s): D64.9 - ANEMIA, UNSPECIFIED Qualifiers: Anemia type: unspecified type Qualified Code(s): D64.9 - Anemia, unspecified
[2018-11-17] MEDS ORDERED: LIDOCAINE HCL 1%, 10 MG/ML (20ML VIAL) ONE (16:06)
--- NOTE | 2018-11-17 16:32 | CONSULT ---
Consultation: REQUESTING PROVIDER: CONSULT REQUEST: We have been asked to medically evaluate this patient for anemia. HISTORY OF PRESENT ILLNESS: This is a 58 yo M with PMH of 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 admission hgb was 8.7 but has been dropping to 6.6, now 7 s/p 5 units pRBC. patient noted to have hgb <7 in 2017 as well w/ o GI eval. patient denies sob, fatugue, dizziness. denies melena, hematicheziaq , hematuria, hemoptysis, hematemesis. states he had a colonoscopy 5 yrs ago which was unremarkable. denies CA history in family REVIEW OF SYSTEMS: CONSTITUTIONAL: Absent: fever, chills HEENT: Absent: rhinorrhea, nasal congestion, throat pain CARDIOVASCULAR: Absent: chest pain, syncope, palpitations RESPIRATORY: Absent: hemoptysis GASTROINTESTINAL: Absent: abdominal pain, melena, hematochezia GENITOURINARY: Absent: dysuria, hematuria MUSCULOSKELETAL: Absent: myalgia, arthralgia SKIN: Absent: rash, itching, pallor HEMATOLOGIC/IMMUNOLOGIC: Absent: easy bleeding, easy bruising ENDOCRINE: Absent: unexplained weight gain, unexplained weight loss NEUROLOGIC: Absent: headache, focal weakness or paresthesias PSYCHIATRIC: Absent: anxiety, depression PHYSICAL EXAMINATION Vital Signs - 24 hr 11/16/18 11/17/18 11/17/18 19:50 02:00 06:00 Temperature 97.6 F 98.4 F 98.4 F Pulse Rate 69 75 71 Respiratory 22 H 20 20 Rate Blood Pressure 138/65 143/66 140/66 O2 Sat by Pulse 100 Oximetry (%) 11/17/18 11/17/18 11/17/18 09:00 10:00 11:30 Temperature 98 F 97.9 F Pulse Rate 68 66 Respiratory 20 20 18 Rate Blood Pressure 145/69 136/80 O2 Sat by Pulse 100 Oximetry (%) 11/17/18 11/17/18 11/17/18 11:40 12:10 12:40 Temperature Pulse Rate 62 87 68 Respiratory 18 18 18 Rate Blood Pressure 143/84 129/78 137/74 O2 Sat by Pulse Oximetry (%) 11/17/18 11/17/18 11/17/18 13:10 13:40 14:00 Temperature 98.1 F Pulse Rate 68 68 68 Respiratory 18 18 20 Rate Blood Pressure 143/84 143/79 143/79 O2 Sat by Pulse Oximetry (%) 11/17/18 11/17/18 11/17/18 14:10 14:40 15:10 Temperature Pulse Rate 68 69 71 Respiratory 18 18 18 Rate Blood Pressure 147/75 149/86 149/52 L O2 Sat by Pulse Oximetry (%) 11/17/18 11/17/18 15:40 16:00 Temperature 98.0 F Pulse Rate 72 70 Respiratory 18 18 Rate Blood Pressure 139/79 149/85 O2 Sat by Pulse Oximetry (%) GENERAL: Awake, alert, and fully oriented, in no acute distress. HEAD: Normal with no signs of trauma. EYES: Pupils equal, round and reactive to light, extraocular movements intact, sclera anicteric, conjunctiva clear. No lid lag. EARS, NOSE, THROAT: Moist mucous membranes. NECK: supple bibasilar crackles HEART: Regular rate and rhythm, normal S1 and S2 ABDOMEN: Soft, nontender, not distended, normoactive bowel sounds, no guarding, no rebound MUSCULOSKELETAL: No CVA tenderness. UPPER EXTREMITIES: 2+ pulses, warm, well-perfused. No peripheral edema. LOWER EXTREMITIES: No calf tenderness. NEUROLOGICAL: Cranial nerves II-XII grossly intact. Normal speech. PSYCHIATRIC: Cooperative. Good eye contact. Appropriate mood and flat affect. SKIN: Warm, dry, normal turgor Laboratory Results - last 24 hr 11/15/18 11/16/18 11/17/18 06:23 17:10 05:30 WBC RBC Hgb Hct MCV MCH MCHC RDW Plt Count MPV Absolute Neuts (auto) Neutrophils % Lymphocytes % Monocytes % Eosinophils % Basophils % Nucleated RBC % Retic Count Haptoglobin 276 H Sodium Potassium Chloride Carbon Dioxide Anion Gap BUN Creatinine Est GFR (CKD-EPI)AfAm Est GFR (CKD-EPI)NonAf POC Glucometer 135 Random Glucose Calcium Phosphorus Magnesium Ferritin Total Bilirubin AST ALT Alkaline Phosphatase LD Total 250 H Total Protein Albumin Blood Type Antibody Screen Direct Antiglob Test Crossmatch 11/17/18 11/17/18 11/17/18 05:30 05:30 05:30 WBC 8.4 RBC 2.56 L Hgb 7.4 L Hct 22.6 L MCV 88.2 MCH 29.1 MCHC 33.0 RDW 15.7 Plt Count 327 MPV 7.2 L Absolute Neuts (auto) 6.8 Neutrophils % 80.9 Lymphocytes % 8.2 D Monocytes % 9.3 Eosinophils % 0.9 Basophils % 0.7 Nucleated RBC % 0 Retic Count 5.62 H Haptoglobin Sodium 134 L Potassium 3.9 Chloride 98 Carbon Dioxide 28 Anion Gap 9 BUN 122 H* Creatinine 5.2 H Est GFR (CKD-EPI)AfAm 13.14 Est GFR (CKD-EPI)NonAf 11.33 POC Glucometer Random Glucose 180 H Calcium 7.8 L Phosphorus Magnesium 2.3 Ferritin 628.8 H Total Bilirubin 0.4 AST 37 ALT 48 Alkaline Phosphatase 181 H LD Total Total Protein 5.7 L Albumin 1.8 L Blood Type O NEGATIVE Antibody Screen Negative Direct Antiglob Test Negative Crossmatch See Detail 11/17/18 11/17/18 11/17/18 06:10 11:45 11:45 WBC 8.2 RBC 2.46 L Hgb 7.0 L Hct 22.0 L MCV 89.5 MCH 28.6 MCHC 31.9 L RDW 16.3 H Plt Count 315 MPV 7.5 Absolute Neuts (auto) Neutrophils % Lymphocytes % Monocytes % Eosinophils % Basophils % Nucleated RBC % Retic Count Haptoglobin Sodium 138 Potassium 4.0 Chloride 98 Carbon Dioxide 32 Anion Gap 8 BUN 121 H* Creatinine 5.3 H Est GFR (CKD-EPI)AfAm 12.84 Est GFR (CKD-EPI)NonAf 11.08 POC Glucometer 182 Random Glucose 159 H Calcium 7.8 L Phosphorus 4.1 Magnesium Ferritin Total Bilirubin AST ALT Alkaline Phosphatase LD Total Total Protein Albumin Blood Type Antibody Screen Direct Antiglob Test Crossmatch Active Medications Generic Name Dose Route Start Last Admin Trade Name Freq PRN Reason Stop Dose Admin Acetaminophen 650 mg 10/28/18 16:55 11/14/18 10:40 Tylenol - PO 650 mg Q6H PRN Administration PAIN LEVEL 1-5 Ergocalciferol 50,000 unit 10/26/18 12:00 11/16/18 12:00 Drisdol - PO Not Given Mo SANGEETHA Finasteride 5 mg 11/03/18 14:30 11/17/18 10:05 Proscar - PO 5 mg DAILY SANGEETHA Administration Furosemide 40 mg 11/12/18 06:00 11/17/18 06:11 Lasix Injection - IVPUSH 40 mg BID@0600,1400 SANGEETHA Administration Guaifenesin 5 ml 10/29/18 20:47 11/13/18 23:39 Diabetic Tussin Dm - PO 5 ml Q6H PRN Administration COUGH Hydralazine HCl 50 mg 10/26/18 14:00 11/17/18 06:11 Apresoline - PO 50 mg TID SANGEETHA Administration Ceftriaxone Sodium 1 gm/ 50 mls @ 100 mls/hr 11/09/18 10:00 11/17/18 10:05 Dextrose IVPB 100 mls/hr DAILY SANGEETHA Administration Protocol Sodium Chloride 250 mls @ 3,000 mls/hr 11/09/18 15:19 Normal Saline - IV PRN PRN Hypotension during Dialysis Insulin Aspart 1 vial 10/26/18 16:30 11/17/18 06:12 Novolog Vial Sliding Scale - SQ Not Given TIDAC SANGEETHA Protocol Isosorbide Mononitrate 30 mg 10/27/18 10:00 11/17/18 10:06 Imdur - PO 30 mg DAILY SANGEETHA Administration Labetalol HCl 300 mg 11/15/18 10:53 11/17/18 10:05 Normodyne - PO 300 mg BID SANGEETHA Administration Nifedipine 30 mg 11/10/18 11:45 11/17/18 10:06 Procardia Xl - PO 30 mg DAILY SANGEETHA Administration Pantoprazole Sodium 40 mg 11/13/18 22:00 11/17/18 10:06 Protonix - PO 40 mg BID SANGEETHA Administration Polyethylene Glycol 17 gm 11/13/18 13:30 11/16/18 09:00 Miralax (For Daily Use) - PO Not Given DAILY SANGEETHA Ranolazine 500 mg 10/26/18 22:00 11/17/18 10:05 Ranexa - PO 500 mg BID SANGEETHA Administration Tamsulosin HCl 0.8 mg 11/04/18 08:30 11/17/18 10:06 Flomax - PO 0.8 mg DAILY@0830 SANGEETHA Administration ASSESSMENT/PLAN: This is a 58 yo M with PMH of 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 admission hgb was 8.7 but has been dropping to 6.6, now 7 s/p 5 units pRBC. normocytic anemia ckd stage 4 on HD CHF exacerbation HTN HLD CAD DM -likely CKD anemia with blood loss anemia -f/u FE studies thought will not be reliable s/p transfusions -LD 250, retic count 5.6, hapto 276 not hemolysing -total protein 5.7, alb 1.8, f/u light chains -f/u stool occult blood and GI eval Dispo: We will continue to follow the patient. Thank you for this consultative opportunity. Visit type - Emergency Visit Emergency Visit: Yes ED Registration Date: 10/26/18 Care time: The patient presented to the Emergency Department on the above date and was hospitalized for further evaluation of their emergent condition. - New Patient This patient is new to me today: No - Critical Care Critical Care patient: No
[2018-11-17 16:58] LABS: CREATININE 2.7 mg/dL (0.55-1.3)
[2018-11-17 17:00] VITALS: BMI 33.6
--- NOTE | 2018-11-17 17:45 | OP ---
Operative Note - Note: Operative Date: 11/17/18 Pre-Operative Diagnosis: ERSD Operation: Insertion of permacath Post-Operative Diagnosis: Same as Pre-op Surgeon: Luis Manuel Ponce Anesthesia: Fractional Estimated Blood Loss (mls): 20 Operative Report Dictated: Yes
[2018-11-17] MEDS ORDERED: SODIUM CHLORIDE 250 ML IV PRN (17:56)
[2018-11-17] MEDS ORDERED: ACETAMINOPHEN 325 MG TABLET (FP) PO PRN (17:56)
[2018-11-17] MEDS ORDERED: ERGOCALCIFEROL (VITAMIN D2) 50,000 UNIT CAPSULE (FP) PO SCH (18:30)
[2018-11-17] MEDS: SODIUM CHLORIDE 1,000 ML IV SCH (22:46)
[2018-11-18 04:15] LABS: SERUM IRON SATURATION 14 % (15-55); TOTAL IRON BINDING CAPACITY 197 ug/dL (250-450); UIBC 169 ug/dL (111-343)
[2018-11-18] MEDS: FUROSEMIDE 40 MG/4 ML INJECTABLE VIAL IVPUSH SCH ×2 (06:03→17:14)
[2018-11-18] MEDS: hydrALAZINE HCL 50 MG TABLET (FP) PO SCH ×3 (06:03→21:48)
[2018-11-18] MEDS: INSULIN SLIDING SCALE (NOVOLOG) 1 VIAL SQ SCH ×3 (06:42→17:24)
--- NOTE | 2018-11-18 07:24 | PN ---
Teaching Attending Note Name of Resident: Tomasa Marshall ATTENDING PHYSICIAN STATEMENT I saw and evaluated the patient. I reviewed the resident's note and discussed the case with the resident. I agree with the resident's findings and plan as documented. SUBJECTIVE: Patient seen and examined 58 year old presents with exacerbation of CHF and SOB Hx of ESRD on HD History of CAD, s/p PCI, HBP, proteinuria, PAD Presented with anemia and has required multiple transfusions during hospital stay Underwent kidney biopsy Ros- no headaches, diplopia, epistaxis, + dysphagia, SOB , dyspnea, cough-non productive, no nausea, emesis, diarrhea, constipation, melena, hematochezia, no dysuria, LE edema, s/p toe amputation Last Vital Signs Temp Pulse Resp BP Pulse Ox 98.4 F 78 20 148/70 98 11/18/18 06:00 11/18/18 06:00 11/18/18 06:00 11/18/18 06:00 11/17/18 21:00 HEENT: MICHELLE, EOM Intact Oropharynx: No thrush, No mucositis Neck: Supple Nodes: Without adenopathy Cor: RSR, No murmurs, No gallops Lungs:decreased breath sounds lower lobes with rales at bases Abd: Soft, Normal bowel sounds, RUQ fullness Ext:LE edema S/P amputation toe left foot with edema Skin: No rashes, Integument intact Current Medications Generic Name Dose Route Start Last Admin Trade Name Freq PRN Reason Stop Dose Admin Acetaminophen 650 mg 11/17/18 17:56 Tylenol - PO Q6H PRN PAIN LEVEL 1-5 Ergocalciferol 50,000 unit 11/17/18 18:30 Drisdol - PO Mo@1000 SANGEETHA Finasteride 5 mg 11/18/18 10:00 Proscar - PO DAILY SANGEETHA Furosemide 40 mg 11/18/18 06:00 11/18/18 06:03 Lasix Injection - IVPUSH 40 mg BID@0600,1400 SANGEETHA Administration Guaifenesin 5 ml 11/17/18 17:56 Diabetic Tussin Dm - PO Q6H PRN COUGH Hydralazine HCl 50 mg 11/17/18 22:00 11/18/18 06:03 Apresoline - PO Not Given TID SANGEETHA Ceftriaxone Sodium 1 gm/ 50 mls @ 100 mls/hr 11/18/18 10:00 Dextrose IVPB DAILY [facility] Protocol Sodium Chloride 250 mls @ 3,000 mls/hr 11/17/18 17:56 Normal Saline - IV PRN PRN Hypotension during Dialysis Sodium Chloride 1,000 mls @ 42 mls/hr 11/17/18 18:00 11/17/18 22:46 Normal Saline - IV 42 mls/hr ASDIR SANGEETHA Administration Insulin Aspart 1 vial 11/18/18 07:00 11/18/18 06:42 Novolog Vial Sliding Scale - SQ Not Given TIDAC [facility] Protocol Isosorbide Mononitrate 30 mg 11/18/18 10:00 Imdur - PO DAILY SANGEETHA Labetalol HCl 300 mg 11/17/18 22:00 11/17/18 22:30 Normodyne - PO 300 mg BID SANGEETHA Administration Nifedipine 30 mg 11/18/18 10:00 Procardia Xl - PO DAILY SANGEETHA Pantoprazole Sodium 40 mg 11/17/18 22:00 11/17/18 22:31 Protonix - PO 40 mg BID SANGEETHA Administration Polyethylene Glycol 17 gm 11/18/18 10:00 Miralax (For Daily Use) - PO DAILY [facility] Ranolazine 500 mg 11/17/18 22:00 11/17/18 22:30 Ranexa - PO 500 mg BID [facility] Administration Tamsulosin HCl 0.8 mg 11/18/18 08:30 Flomax - PO DAILY@0830 [facility] Impression: Anemia Likely multifactorial - with CKD and componenet of blood loss ( stool positive for occult blood) R/O dysproteinuria -note normal SERUM free kappa/free lambda light chain ratio Await kidney biopsy Await GI work up OBJECTIVE: ASSESSMENT AND PLAN:
[2018-11-18 07:32] LABS: BASO % 0.7 % (0-2.0); EOS % 0.6 % (0-4.5); HEMATOCRIT 27.9 % (35.4-49); HEMOGLOBIN 9.2 GM/dL (11.7-16.9); MCH 28.7 pg (25.7-33.7); MCHC 32.9 g/dl (32.0-35.9); MEAN CELL VOLUME 87.2 fl (80-96); MONO % 11.8 % (3.8-10.2); NEUT % 80.9 % (42.8-82.8); PLATELET COUNT 284 K/MM3 (134-434); RDW 15.7 % (11.9-15.9); WHITE BLOOD COUNT 8.5 K/mm3 (4.0-10.0)
[2018-11-18 07:59] LABS: CALCIUM 7.8 mg/dL (8.5-10.1); CREATININE 3.5 mg/dL (0.55-1.3); MAGNESIUM 2.3 mg/dL (1.8-2.4); PHOSPHOROUS 3.2 mg/dL (2.5-4.9); POTASSIUM 3.5 mmol/L (3.5-5.1)
--- NOTE | 2018-11-18 09:26 | PN ---
Progress Note (short form) - Note Progress Note: POD 1, s/p R PC placement Pt seen and examined. States he had some pain overnight, improved with pain management. Dressing is c/d/i. No palpable hematoma. Pt should f/u outpt with Dr Ponce for permanent HD access planning
[2018-11-18] MEDS ORDERED: cefTRIAXone SODIUM 1 GM VIAL ONE (12:02)
[2018-11-18] MEDS ORDERED: DEXTROSE 5%-WATER - 50 ML IVPB ONE (12:02)
--- NOTE | 2018-11-18 12:04 | PN ---
Progress Note (short form) - Note Progress Note: s: no chest pain, palps, dyspnea TELE:NSR, PVCs Current Medications Acetaminophen (Tylenol -) 650 mg PO Q6H PRN PRN Reason: PAIN LEVEL 1-5 Ergocalciferol (Drisdol -) 50,000 unit PO Mo@1000 [facility] Finasteride (Proscar -) 5 mg PO DAILY [facility] Furosemide (Lasix Injection -) 40 mg IVPUSH BID@0600,1400 [facility] Last Admin: 11/18/18 06:03 Dose: 40 mg Guaifenesin (Diabetic Tussin Dm -) 5 ml PO Q6H PRN PRN Reason: COUGH Hydralazine HCl (Apresoline -) 50 mg PO TID [facility] Last Admin: 11/18/18 06:03 Dose: Not Given Ceftriaxone Sodium 1 gm/ (Dextrose) 50 mls @ 100 mls/hr IVPB DAILY [facility]; Protocol Sodium Chloride (Normal Saline -) 250 mls @ 3,000 mls/hr IV PRN PRN PRN Reason: Hypotension during Dialysis Sodium Chloride (Normal Saline -) 1,000 mls @ 42 mls/hr IV ASDIR [facility] Last Admin: 11/17/18 22:46 Dose: 42 mls/hr Insulin Aspart (Novolog Vial Sliding Scale -) 1 vial SQ TIDAC [facility]; Protocol Last Admin: 11/18/18 06:42 Dose: Not Given Isosorbide Mononitrate (Imdur -) 30 mg PO DAILY [facility] Labetalol HCl (Normodyne -) 300 mg PO BID [facility] Last Admin: 11/17/18 22:30 Dose: 300 mg Nifedipine (Procardia Xl -) 30 mg PO DAILY [facility] Pantoprazole Sodium (Protonix -) 40 mg PO BID [facility] Last Admin: 11/17/18 22:31 Dose: 40 mg Polyethylene Glycol (Miralax (For Daily Use) -) 17 gm PO DAILY [facility] Ranolazine (Ranexa -) 500 mg PO BID [facility] Last Admin: 11/17/18 22:30 Dose: 500 mg Tamsulosin HCl (Flomax -) 0.8 mg PO DAILY@0830 [facility] Vital Signs Period Temp Pulse Resp BP Sys/Lopez Pulse Ox Last 24 Hr 97.8 F-99.2 F 68-87 12-20 129-161/52-86 97-98 Constitutional: Yes: No Distress, Calm Eyes: Yes: Conjunctiva Clear Cardiovascular: Yes: Regular Rate and Rhythm Respiratory: Yes: CTA Bilaterally Gastrointestinal: Yes: Soft (NT) Edema: Yes Edema: LLE: 1+, RLE: 1+ Neurological: Yes: Alert, Oriented ...Motor Strength: WNL no jaundice not agitated EKG: Image Reviewed (NSR, PVCs) Assessment/Plan 1. Acute systolic HF exacerbation: - EF 40-45% - cont labetolol, not on ACEI/ARB for CKD - continue hydralzine and imdur. - Hypoalbuminemia may also be contributing to edema - edema improving with HD, weight down, volume management per renal 2. CKD - renal following - s/p kidney biopsy - HD per renal, s/p permacath 3. CAD: - s/p FER most recently 09/2017, 10/2017 - restart aspirin and plavix when able 4. HTN: - stable 5. Anemia: -plans for egd , no cardiac contraindications
[2018-11-18] MEDS: RANOLAZINE E.R. 500 MG TABLET (FP) PO SCH ×2 (12:06→21:48)
[2018-11-18] MEDS: ISOSORBIDE MONONITRATE 30 MG TAB.SR.24H (FP) PO SCH (12:06)
[2018-11-18] MEDS: FINASTERIDE 5 MG TABLET (FP) PO SCH (12:06)
[2018-11-18] MEDS: PANTOPRAZOLE 40 MG TABLET (FP) PO SCH ×2 (12:06→21:48)
[2018-11-18] MEDS: CEFTRIAXONE 1 GM in DEXTROSE 5%-WATER - 50 ML IVPB SCH (12:06)
--- NOTE | 2018-11-18 12:06 | PN ---
Progress Note (short form) - Note Progress Note: Anesthesia POD#1 S/P permacath under MAC VSS,no N/V,no pain. Georgia Matt MD.
[2018-11-18] MEDS: NIFEdipine E.R. 30 MG TABLET (FP) PO SCH (12:07)
[2018-11-18] MEDS: TAMSULOSIN HCL 0.4 MG CAP PO SCH (12:07)
[2018-11-18] MEDS: LABETALOL HCL 200 MG TABLET (FP) PO SCH ×2 (12:07→21:46)
--- NOTE | 2018-11-18 16:35 | PN ---
Progress Note (short form) - Note Progress Note: EGD performed today revealing severe LA grade D esophagitis, hiatal hernia and antral erythema (gastric biopsies taken). See scanned endoscopy report for details. Recommendations: -PPI BID -Follow up pathology results -Antireflux measures -Repeat EGD in 8-12 weeks to assess healing of esophagitis -Considering EGD findings, would hold off on colonoscopy currently though timing can be readdressed pending course and when further clinically improved. -Discussed with patient after the procedure
[2018-11-18] MEDS: POLYETHYLENE GLYCOL 3350 119 GM BTL PO SCH (17:15)
[2018-11-18] MEDS ORDERED: SODIUM CHLORIDE 250 ML IV PRN (17:28)
--- NOTE | 2018-11-18 17:28 | PN ---
Progress Note (short form) - Note Progress Note: Renal follow up for CKD Pt seen and examined at the bedside earlier today awake and alert, offers no acute complaints s/p tunneled HD catheter insertion yesterday s/p dialysis yesterday no sob, cp, abd pain Vital Signs Temperature 97.8 F 11/18/18 14:57 Pulse Rate 72 11/18/18 15:27 Respiratory Rate 16 11/18/18 15:27 Blood Pressure 155/62 11/18/18 15:27 O2 Sat by Pulse Oximetry (%) 96 11/18/18 15:27 Intake & Output 11/15/18 11/16/18 11/17/18 11/18/18 23:59 23:59 23:59 23:59 Intake Total 660 360 340 100 Output Total 400 500 620 Balance 260 -140 -280 100 Weight 119.839 kg 118.478 kg 119.204 kg 115.212 kg NAD RRR, no M/R Dec BS at lung bases, + rales soft obese, NT/ND + upper extremity edema ++ bilateral LE edema CBC, BMP 11/18/18 06:30 11/18/18 06:30 Current Medications Acetaminophen (Tylenol -) 650 mg PO Q6H PRN PRN Reason: PAIN LEVEL 1-5 Ergocalciferol (Drisdol -) 50,000 unit PO Mo@1000 [facility] Finasteride (Proscar -) 5 mg PO DAILY [facility] Last Admin: 11/18/18 12:06 Dose: 5 mg Furosemide (Lasix Injection -) 40 mg IVPUSH BID@0600,1400 [facility] Last Admin: 11/18/18 17:14 Dose: 40 mg Guaifenesin (Diabetic Tussin Dm -) 5 ml PO Q6H PRN PRN Reason: COUGH Hydralazine HCl (Apresoline -) 50 mg PO TID [facility] Last Admin: 11/18/18 17:15 Dose: 50 mg Ceftriaxone Sodium 1 gm/ (Dextrose) 50 mls @ 100 mls/hr IVPB DAILY [facility]; Protocol Last Admin: 11/18/18 12:06 Dose: 100 mls/hr Sodium Chloride (Normal Saline -) 250 mls @ 3,000 mls/hr IV PRN PRN PRN Reason: Hypotension during Dialysis Sodium Chloride (Normal Saline -) 1,000 mls @ 42 mls/hr IV ASDIR [facility] Last Admin: 11/17/18 22:46 Dose: 42 mls/hr Insulin Aspart (Novolog Vial Sliding Scale -) 1 vial SQ TIDAC [facility]; Protocol Last Admin: 11/18/18 17:24 Dose: 2 units Isosorbide Mononitrate (Imdur -) 30 mg PO DAILY [facility] Last Admin: 11/18/18 12:06 Dose: 30 mg Labetalol HCl (Normodyne -) 300 mg PO BID [facility] Last Admin: 11/18/18 12:07 Dose: 300 mg Nifedipine (Procardia Xl -) 30 mg PO DAILY [facility] Last Admin: 11/18/18 12:07 Dose: 30 mg Pantoprazole Sodium (Protonix -) 40 mg PO BID [facility] Last Admin: 11/18/18 12:06 Dose: 40 mg Polyethylene Glycol (Miralax (For Daily Use) -) 17 gm PO DAILY [facility] Last Admin: 11/18/18 17:15 Dose: Not Given Ranolazine (Ranexa -) 500 mg PO BID [facility] Last Admin: 11/18/18 12:06 Dose: 500 mg Tamsulosin HCl (Flomax -) 0.8 mg PO DAILY@0830 [facility] Last Admin: 11/18/18 12:07 Dose: 0.8 mg 58 year old gentleman with hx of CKD with proteinuria, CHF, CAD s/p PCI, Hypertension, hyperlipidemia who preesnted from home with LE swelling and sob and admitted for CHF exacerbation with Cr of 2.4-2.6. 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 Prater should have some recovery of renal function once ATN resolves will continue HD 3x weekly for now untril renal function improves will need outpatient HD placement for EGD today s/p PRBC transfusion continue RICHARD with HD Transfuse for Hgb < 7 Thank you Mansoor Quiroz DO
--- NOTE | 2018-11-18 18:01 | PN ---
Teaching Attending Note Name of Resident: Harsh Ponce ATTENDING PHYSICIAN STATEMENT I saw and evaluated the patient. I reviewed the resident's note and discussed the case with the resident. I agree with the resident's findings and plan as documented. SUBJECTIVE: Mr Prater says he is "blessed", otherwise denies cp, sob, n/v. OBJECTIVE: Last Vital Signs Temp Pulse Resp BP Pulse Ox 36.6 C 72 16 155/62 96 11/18/18 14:57 11/18/18 15:27 11/18/18 15:27 11/18/18 15:27 11/18/18 15:27 Gen: nad Pulm: ctab but still with dry cough CV: rrr w/o m/r/g Abd: +bs, s/nt/nd Ext: no c/c/e CBC, BMP 11/18/18 06:30 11/18/18 06:30 ASSESSMENT AND PLAN: (1) CHF (congestive heart failure) Assessment/Plan: -continue HD Code(s): I50.9 - HEART FAILURE, UNSPECIFIED Qualifiers: Heart failure type: systolic Heart failure chronicity: acute on chronic Qualified Code(s): I50.23 - Acute on chronic systolic (congestive) heart failure (2) GABI (acute kidney injury) Assessment/Plan -secondary to diabetic nephropathy per Dr Quiroz -continue HD Code(s): N17.9 - ACUTE KIDNEY FAILURE, UNSPECIFIED (3) CKD (chronic kidney disease) stage 4, GFR 15-29 ml/min Assessment/Plan: -continue HD Code(s): N18.4 - CHRONIC KIDNEY DISEASE, STAGE 4 (SEVERE) (4) Sepsis secondary to UTI Assessment/Plan: -continue rocephin -day Code(s): A41.9 - SEPSIS, UNSPECIFIED ORGANISM (5) Insulin dependent diabetes mellitus Assessment/Plan: -continue diabetic diet and insulin Code(s): E11.9 - TYPE 2 DIABETES MELLITUS WITHOUT COMPLICATIONS; Z79.4 - MCFP (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 OF INSULIN (6) Anemia -had positive occult blood in stool -planning for EGD today Problem List - Problems (1) CHF (congestive heart failure) Code(s): I50.9 - HEART FAILURE, UNSPECIFIED Qualifiers: Heart failure type: systolic Heart failure chronicity: acute on chronic Qualified Code(s): I50.23 - Acute on chronic systolic (congestive) heart failure (2) GABI (acute kidney injury) Code(s): N17.9 - ACUTE KIDNEY FAILURE, UNSPECIFIED (3) CKD (chronic kidney disease) stage 4, GFR 15-29 ml/min Code(s): N18.4 - CHRONIC KIDNEY DISEASE, STAGE 4 (SEVERE) (4) Sepsis Code(s): A41.9 - SEPSIS, UNSPECIFIED ORGANISM (5) Insulin dependent diabetes mellitus Code(s): E11.9 - TYPE 2 DIABETES MELLITUS WITHOUT COMPLICATIONS; Z79.4 - [employer] (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 OF INSULIN (6) UTI (urinary tract infection) Code(s): N39.0 - URINARY TRACT INFECTION, SITE NOT SPECIFIED Qualifiers: Urinary tract infection type: acute cystitis Hematuria presence: without hematuria Qualified Code(s): N30.00 - Acute cystitis without hematuria
--- NOTE | 2018-11-18 18:41 | PN ---
Physical Exam: SUBJECTIVE: Patient seen and examined at bedside. Feels "blessed". Emphasized to him to walk and sit off the bed and he verbalized agreeing and understanding. OBJECTIVE: Vital Signs Temperature 97.8 F 11/18/18 14:57 Pulse Rate 72 11/18/18 15:27 Respiratory Rate 16 11/18/18 15:27 Blood Pressure 155/62 11/18/18 15:27 O2 Sat by Pulse Oximetry (%) 96 11/18/18 15:27 GENERAL: The patient is awake, alert, and fully oriented, in no acute distress. ENT: Ears normal, nares patent. NECK: R neck permacath LUNGS: Poor inspiratory effort, decreased breath sounds at bases. HEART: Regular rate and rhythm, S1, S2 without murmur, rub or gallop. ABDOMEN: Soft, nontender, nondistended, normoactive bowel sounds EXTREMITIES: warm, well-perfused, 1+ b/l pitting edema. NEUROLOGICAL: Cranial nerves II through XII grossly intact. PSYCH: Flat affect SKIN: Warm, dry Laboratory Results - last 24 hr 11/15/18 11/17/18 11/17/18 06:23 05:30 20:47 WBC RBC Hgb Hct MCV MCH MCHC RDW Plt Count MPV Absolute Neuts (auto) Neutrophils % Lymphocytes % Monocytes % Eosinophils % Basophils % Nucleated RBC % Retic Count Sodium Potassium Chloride Carbon Dioxide Anion Gap BUN Creatinine Est GFR (CKD-EPI)AfAm Est GFR (CKD-EPI)NonAf POC Glucometer 137 Random Glucose Calcium Phosphorus Magnesium Iron 28 L TIBC 197 L Iron Saturation 14 L Transferrin 152 L Free [place] LC, Quant 179.0 H Free Lambda LC, Quant 114.1 H Free [place]/Lambda Ratio 1.57 11/18/18 11/18/18 11/18/18 05:30 06:00 06:30 WBC 8.5 RBC 3.20 L Hgb 9.2 L Hct 27.9 L D MCV 87.2 MCH 28.7 MCHC 32.9 RDW 15.7 Plt Count 284 MPV 7.0 L Absolute Neuts (auto) 6.9 Neutrophils % 80.9 Lymphocytes % 6.0 L D Monocytes % 11.8 H Eosinophils % 0.6 Basophils % 0.7 Nucleated RBC % 0 Retic Count 5.56 H Sodium Potassium Chloride Carbon Dioxide Anion Gap BUN Creatinine Est GFR (CKD-EPI)AfAm Est GFR (CKD-EPI)NonAf POC Glucometer 150 Random Glucose Calcium Phosphorus Magnesium Iron TIBC Iron Saturation Transferrin Free Rising Star LC, Quant Free Lambda LC, Quant Free [place]/Lambda Ratio 11/18/18 11/18/18 11/18/18 06:30 12:41 17:22 WBC RBC Hgb Hct MCV MCH MCHC RDW Plt Count MPV Absolute Neuts (auto) Neutrophils % Lymphocytes % Monocytes % Eosinophils % Basophils % Nucleated RBC % Retic Count Sodium 139 Potassium 3.5 Chloride 100 Carbon Dioxide 31 Anion Gap 8 BUN 72 H Creatinine 3.5 H Est GFR (CKD-EPI)AfAm 21.20 Est GFR (CKD-EPI)NonAf 18.29 POC Glucometer 133 153 Random Glucose 148 H Calcium 7.8 L Phosphorus 3.2 Magnesium 2.3 Iron TIBC Iron Saturation Transferrin Free Rising Star LC, Quant Free Lambda LC, Quant Free [place]/Lambda Ratio Active Medications Generic Name Dose Route Start Last Admin Trade Name Freq PRN Reason Stop Dose Admin Acetaminophen 650 mg 11/17/18 17:56 Tylenol - PO Q6H PRN PAIN LEVEL 1-5 Epoetin U[place] 20,000 unit 11/19/18 06:00 Procrit - IVPUSH 11/19/18 06:01 ONCE ONE Ergocalciferol 50,000 unit 11/17/18 18:30 Drisdol - PO Mo@1000 SANGE[facility]HA Finasteride 5 mg 11/18/18 10:00 11/18/18 12:06 Proscar - PO 5 mg DAILY SANGE[facility]HA Administration Furosemide 40 mg 11/18/18 06:00 11/18/18 17:14 Lasix Injection - IVPUSH 40 mg BID@0600,1400 S[facility] Administration Guaifenesin 5 ml 11/17/18 17:56 Diabetic Tussin Dm - PO Q6H PRN COUGH Hydralazine HCl 50 mg 11/17/18 22:00 11/18/18 17:15 Apresoline - PO 50 mg TID S[facility]HA Administration Ceftriaxone Sodium 1 gm/ 50 mls @ 100 mls/hr 11/18/18 10:00 11/18/18 12:06 Dextrose IVPB 100 mls/hr DAILY S[facility] Administration Protocol Sodium Chloride 250 mls @ 3,000 mls/hr 11/17/18 17:56 Normal Saline - IV PRN PRN Hypotension during Dialysis Sodium Chloride 1,000 mls @ 42 mls/hr 11/17/18 18:00 11/17/18 22:46 Normal Saline - IV 42 mls/hr ASDIR [facility] Administration Sodium Chloride 250 mls @ 3,000 mls/hr 11/18/18 17:28 Normal Saline - IV 11/19/18 17:28 PRN PRN Hypotension during Dialysis Insulin Aspart 1 vial 11/18/18 07:00 11/18/18 17:24 Novolog Vial Sliding Scale - SQ 2 units TIDAC [facility] Administration Protocol Isosorbide Mononitrate 30 mg 11/18/18 10:00 11/18/18 12:06 Imdur - PO 30 mg DAILY S[facility] Administration Labetalol HCl 300 mg 11/17/18 22:00 11/18/18 12:07 Normodyne - PO 300 mg BID S[facility] Administration Nifedipine 30 mg 11/18/18 10:00 11/18/18 12:07 Procardia Xl - PO 30 mg DAILY [facility] Administration Pantoprazole Sodium 40 mg 11/17/18 22:00 11/18/18 12:06 Protonix - PO 40 mg BID [facility] Administration Polyethylene Glycol 17 gm 11/18/18 10:00 11/18/18 17:15 Miralax (For Daily Use) - PO Not Given DAILY S[facility] Ranolazine 500 mg 11/17/18 22:00 11/18/18 12:06 Ranexa - PO 500 mg BID S[facility] Administration Tamsulosin HCl 0.8 mg 11/18/18 08:30 11/18/18 12:07 Flomax - PO 0.8 mg DAILY@0830 [facility] Administration ASSESSMENT/PLAN: 58 y/o M w/PMH of CAD, HTN, HLD, NIDDM, CKD stage III, PAD admitted for CHF now requiring dialysis for ESRD -CHF exacerbation -lasix 40 mg IV bid -monitor i/os, daily weights -Leukocytosis -improved today -bibasilar atelectasis vs PNA -UTI with E. Coli -c/w ceftriaxone (day 13) -ID following -Recurrent Anemia -stable currently -GI following; FOBT+ -EGD done today :EGD performed today revealing severe LA grade D esophagitis, hiatal hernia and antral erythema (gastric biopsies taken. - PPI BID. Follow up pathology results. Repeat EGD in 8-12 weeks to assess healing of esophagitis. -ESRD -on HD -nephrology following -kidney biopsy on 11/16. f/u results -EPO -CAD -c/w ranexa -HTN -c/w hzn, labetalol, imdur, nifedipine -BPH -c/w flomax, finasteride -DVT ppx -SCDs -FEN -No fluids -Monitor electrolytes -renal diet -Dispo: monitor on tele Visit type - Emergency Visit Emergency Visit: Yes ED Registration Date: 10/26/18 Care time: The patient presented to the Emergency Department on the above date and was hospitalized for further evaluation of their emergent condition. - New Patient This patient is new to me today: No - Critical Care Critical Care patient: No
[2018-11-18] MEDS: SODIUM CHLORIDE 1,000 ML IV SCH (19:06)
[2018-11-19] MEDS ORDERED: EPOETIN ALFA 20,000 UNIT/1 ML VIAL IVPUSH ONE (06:00)
[2018-11-19] MEDS ORDERED: hydrALAZINE HCL 25 MG TABLET (FP) PO SCH (06:15)
[2018-11-19] MEDS: FUROSEMIDE 40 MG/4 ML INJECTABLE VIAL IVPUSH SCH ×2 (06:40→15:47)
[2018-11-19] MEDS: INSULIN SLIDING SCALE (NOVOLOG) 1 VIAL SQ SCH ×3 (06:43→18:27)
[2018-11-19] MEDS ORDERED: cefTRIAXone SODIUM 1 GM VIAL ONE (08:16)
[2018-11-19] MEDS ORDERED: DEXTROSE 5%-WATER - 50 ML IVPB ONE (08:16)
[2018-11-19] MEDS: TAMSULOSIN HCL 0.4 MG CAP PO SCH (09:04)
[2018-11-19] MEDS: PANTOPRAZOLE 40 MG TABLET (FP) PO SCH ×2 (09:04→22:58)
[2018-11-19] MEDS: FINASTERIDE 5 MG TABLET (FP) PO SCH (09:04)
[2018-11-19] MEDS: RANOLAZINE E.R. 500 MG TABLET (FP) PO SCH ×2 (09:04→22:58)
[2018-11-19] MEDS: LABETALOL HCL 200 MG TABLET (FP) PO SCH ×2 (09:04→22:58)
[2018-11-19] MEDS: ISOSORBIDE MONONITRATE 30 MG TAB.SR.24H (FP) PO SCH (09:05)
[2018-11-19] MEDS: POLYETHYLENE GLYCOL 3350 119 GM BTL PO SCH (09:05)
[2018-11-19] MEDS: NIFEdipine E.R. 30 MG TABLET (FP) PO SCH (09:05)
[2018-11-19] MEDS: CEFTRIAXONE 1 GM in DEXTROSE 5%-WATER - 50 ML IVPB SCH (09:06)
--- NOTE | 2018-11-19 09:59 | PN.GI ---
GI Progress Note Subjective: No acute events Dr. Espino performed EGD yesterday: revealed LA grade D esophagitis: Placed on BID PPI Patient states being tired, otherwise no focal complaints - Objective Vital Signs: Vital Signs Temperature 98.8 F 11/19/18 07:57 Pulse Rate 83 11/19/18 07:57 Respiratory Rate 20 11/19/18 07:57 Blood Pressure 136/65 11/19/18 07:57 O2 Sat by Pulse Oximetry (%) 96 11/19/18 07:57 Constitutional: Calm Cardiovascular: Yes: Regular Rate and Rhythm, Murmur Respiratory: Yes: Diminished (at bases with poor insp effort) Gastrointestinal Inspection: No: Distention ...Auscultate: Yes: Normoactive Bowel Sounds ...Palpate: Yes: Soft. No: Splenomegaly, Tenderness Edema: Yes Neurological: Yes: Alert Labs: CBC, BMP 11/18/18 06:30 11/18/18 06:30 INR, PTT INR 1.30 (0.83-1.09) H 11/16/18 09:50 Hepatic Panel Total Bilirubin 0.4 mg/dL (0.2-1) 11/17/18 05:30 AST 37 U/L (15-37) 11/17/18 05:30 ALT 48 U/L (13-61) 11/17/18 05:30 Alkaline Phosphatase 181 U/L (45-117) H 11/17/18 05:30 Albumin 1.8 g/dl (3.4-5.0) L 11/17/18 05:30 Problem List - Problems (1) Reflux esophagitis Assessment/Plan: LA grade D esophagitis noted on EGD Protonix 40mg PO BID Keep head of bed elevated 35 degrees at all times Monitor for overt bleeding Heme evaluation Patient had a bag of potato chips at bedside. Advised patient to adhere to 2g low Na diet Repeat EGD in 2 months to assess for esophageal healing Code(s): K21.0 - GASTRO-ESOPHAGEAL REFLUX DISEASE WITH ESOPHAGITIS
--- NOTE | 2018-11-19 11:46 | PN ---
Physical Exam: SUBJECTIVE: Patient seen and examined at bedside. Says he feels "fine". Had EGD yesterday. OBJECTIVE: Vital Signs Temperature 98.8 F 11/19/18 07:57 Pulse Rate 74 11/19/18 11:15 Respiratory Rate 18 11/19/18 11:15 Blood Pressure 131/70 11/19/18 11:15 O2 Sat by Pulse Oximetry (%) 96 11/19/18 07:57 GENERAL: The patient is awake, alert, and fully oriented, in no acute distress. ENT: Ears normal, nares patent. NECK: R neck permacath LUNGS: Poor inspiratory effort, decreased breath sounds at bases. HEART: Regular rate and rhythm, S1, S2 without murmur, rub or gallop. ABDOMEN: Soft, nontender, nondistended, normoactive bowel sounds EXTREMITIES: warm, well-perfused, 1+ b/l pitting edema. NEUROLOGICAL: Cranial nerves II through XII grossly intact. PSYCH: Flat affect SKIN: Warm, dry Laboratory Results - last 24 hr 11/18/18 11/18/18 11/19/18 12:41 17:22 06:43 POC Glucometer 133 153 170 Magnesium 11/19/18 09:42 POC Glucometer Magnesium 2.1 Active Medications Generic Name Dose Route Start Last Admin Trade Name Freq PRN Reason Stop Dose Admin Acetaminophen 650 mg 11/17/18 17:56 Tylenol - PO Q6H PRN PAIN LEVEL 1-5 Ergocalciferol 50,000 unit 11/17/18 18:30 Drisdol - PO Mo@1000 SANGEETHA Finasteride 5 mg 11/18/18 10:00 11/19/18 09:04 Proscar - PO 5 mg DAILY S[facility] Administration Furosemide 40 mg 11/18/18 06:00 11/19/18 06:40 Lasix Injection - IVPUSH 40 mg BID@0600,1400 [facility] Administration Guaifenesin 5 ml 11/17/18 17:56 Diabetic Tussin Dm - PO Q6H PRN COUGH Hydralazine HCl 50 mg 11/19/18 14:00 Apresoline - PO TID S[facility] Ceftriaxone Sodium 1 gm/ 50 mls @ 100 mls/hr 11/18/18 10:00 11/19/18 09:06 Dextrose IVPB 100 mls/hr DAILY S[facility] Administration Protocol Sodium Chloride 250 mls @ 3,000 mls/hr 11/17/18 17:56 Normal Saline - IV PRN PRN Hypotension during Dialysis Sodium Chloride 1,000 mls @ 42 mls/hr 11/17/18 18:00 11/18/18 19:06 Normal Saline - IV Not Given ASDIR [facility] Sodium Chloride 250 mls @ 3,000 mls/hr 11/18/18 17:28 Normal Saline - IV 11/19/18 17:28 PRN PRN Hypotension during Dialysis Insulin Aspart 1 vial 11/18/18 07:00 11/19/18 06:43 Novolog Vial Sliding Scale - SQ 2 units TIDAC [facility] Administration Protocol Isosorbide Mononitrate 30 mg 11/18/18 10:00 11/19/18 09:05 Imdur - PO 30 mg DAILY SANGEET[facility] Administration Labetalol HCl 300 mg 11/17/18 22:00 11/19/18 09:04 Normodyne - PO 300 mg BID SANGE[facility] Administration Nifedipine 30 mg 11/18/18 10:00 11/19/18 09:05 Procardia Xl - PO 30 mg DAILY SANGE[facility] Administration Pantoprazole Sodium 40 mg 11/17/18 22:00 11/19/18 09:04 Protonix - PO 40 mg BID SANGEET[facility] Administration Polyethylene Glycol 17 gm 11/18/18 10:00 11/19/18 09:05 Miralax (For Daily Use) - PO 17 gm DAILY S[facility] Administration Ranolazine 500 mg 11/17/18 22:00 11/19/18 09:04 Ranexa - PO 500 mg BID SANGEETHA Administration Tamsulosin HCl 0.8 mg 11/18/18 08:30 11/19/18 09:04 Flomax - PO 0.8 mg DAILY@0830 S[facility] Administration ASSESSMENT/PLAN: 58 y/o M w/PMH of CAD, HTN, HLD, NIDDM, CKD stage III, PAD admitted for CHF now requiring dialysis for ESRD -CHF exacerbation -lasix 40 mg IV bid -monitor i/os, daily weights -Leukocytosis -improved today -bibasilar atelectasis vs PNA -UTI with E. Coli -c/w ceftriaxone (day 14) -ID following -Recurrent Anemia -stable currently -GI following; FOBT+ -EGD done today :EGD performed today revealing severe LA grade D esophagitis, hiatal hernia and antral erythema (gastric biopsies taken. - PPI BID. Follow up pathology results. Repeat EGD in 8-12 weeks to assess healing of esophagitis. -on protonix 40mg po bid now -ESRD -on HD -nephrology following -kidney biopsy on 11/16. f/u results -EPO -CAD -c/w ranexa -HTN -c/w hzn, labetalol, imdur, nifedipine -BPH -c/w flomax, finasteride -DVT ppx -SCDs -FEN -No fluids -Monitor electrolytes -renal diet -Dispo: monitor on tele. Would like to be discharged home. Attempted to speak to his /aaliyah Ceballos at both home number listed and her cell phone number multiple times with no answer in regards to placement to SNF vs home discharge. Visit type - Emergency Visit Emergency Visit: Yes ED Registration Date: 10/26/18 Care time: The patient presented to the Emergency Department on the above date and was hospitalized for further evaluation of their emergent condition. - New Patient This patient is new to me today: No - Critical Care Critical Care patient: No
[2018-11-19 13:13] LABS: HEMATOCRIT 25.7 % (35.4-49); HEMOGLOBIN 8.3 GM/dL (11.7-16.9); MCH 28.5 pg (25.7-33.7); MCHC 32.5 g/dl (32.0-35.9); MEAN CELL VOLUME 87.7 fl (80-96); MEAN PLT VOLUME 7.5 fl (7.5-11.1); PLATELET COUNT 281 K/MM3 (134-434); RBC 2.92 M/mm3 (4.00-5.60); RDW 15.9 % (11.9-15.9); RETICULOCYTES 5.67 % (0.5-1.5); WHITE BLOOD COUNT 6.6 K/mm3 (4.0-10.0)
[2018-11-19 13:25] LABS: ALBUMIN 1.7 g/dl (3.4-5.0); BILIRUBIN,TOTAL 0.3 mg/dL (0.2-1); CALCIUM 7.8 mg/dL (8.5-10.1); PHOSPHOROUS 3.4 mg/dL (2.5-4.9); POTASSIUM 3.1 mmol/L (3.5-5.1); TOT PROT 5.8 g/dl (6.4-8.2)
--- NOTE | 2018-11-19 13:27 | PN ---
Progress Note, Physician History of Present Illness: AWAKE, LETHARGIC SUPINE IN BED AFEBRILE WBC IMPROVED COMPLETING COURSE OF ANTIBIOTICS FOR E COLI BACTEREMIA - Current Medication List Current Medications: Active Medications Acetaminophen (Tylenol -) 650 mg PO Q6H PRN PRN Reason: PAIN LEVEL 1-5 Ergocalciferol (Drisdol -) 50,000 unit PO Mo@1000 [facility] Finasteride (Proscar -) 5 mg PO DAILY [facility] Last Admin: 11/19/18 09:04 Dose: 5 mg Furosemide (Lasix Injection -) 40 mg IVPUSH BID@0600,1400 [facility] Last Admin: 11/19/18 06:40 Dose: 40 mg Guaifenesin (Diabetic Tussin Dm -) 5 ml PO Q6H PRN PRN Reason: COUGH Hydralazine HCl (Apresoline -) 50 mg PO TID [facility] Ceftriaxone Sodium 1 gm/ (Dextrose) 50 mls @ 100 mls/hr IVPB DAILY [facility]; Protocol Last Admin: 11/19/18 09:06 Dose: 100 mls/hr Sodium Chloride (Normal Saline -) 250 mls @ 3,000 mls/hr IV PRN PRN PRN Reason: Hypotension during Dialysis Sodium Chloride (Normal Saline -) 1,000 mls @ 42 mls/hr IV ASDIR [facility] Last Admin: 11/18/18 19:06 Dose: Not Given Sodium Chloride (Normal Saline -) 250 mls @ 3,000 mls/hr IV PRN PRN PRN Reason: Hypotension during Dialysis Stop: 11/19/18 17:28 Insulin Aspart (Novolog Vial Sliding Scale -) 1 vial SQ TIDAC [facility]; Protocol Last Admin: 11/19/18 11:47 Dose: Not Given Isosorbide Mononitrate (Imdur -) 30 mg PO DAILY [facility] Last Admin: 11/19/18 09:05 Dose: 30 mg Labetalol HCl (Normodyne -) 300 mg PO BID [facility] Last Admin: 11/19/18 09:04 Dose: 300 mg Nifedipine (Procardia Xl -) 30 mg PO DAILY [facility] Last Admin: 11/19/18 09:05 Dose: 30 mg Pantoprazole Sodium (Protonix -) 40 mg PO BID [facility] Last Admin: 11/19/18 09:04 Dose: 40 mg Polyethylene Glycol (Miralax (For Daily Use) -) 17 gm PO DAILY [facility] Last Admin: 11/19/18 09:05 Dose: 17 gm Ranolazine (Ranexa -) 500 mg PO BID [facility] Last Admin: 11/19/18 09:04 Dose: 500 mg Tamsulosin HCl (Flomax -) 0.8 mg PO DAILY@0830 [facility] Last Admin: 11/19/18 09:04 Dose: 0.8 mg - Objective Vital Signs: Vital Signs Temperature 98.8 F 11/19/18 07:57 Pulse Rate 72 11/19/18 12:45 Respiratory Rate 18 11/19/18 12:45 Blood Pressure 132/69 11/19/18 12:45 O2 Sat by Pulse Oximetry (%) 96 11/19/18 07:57 Constitutional: Yes: No Distress Eyes: Yes: Conjunctiva Clear Cardiovascular: Yes: Regular Rate and Rhythm, S1, S2 Respiratory: Yes: CTA Bilaterally Gastrointestinal: Yes: Normal Bowel Sounds, Soft. No: Tenderness Labs: CBC, BMP 11/19/18 11:40 11/19/18 11:37 INR, PTT INR 1.30 (0.83-1.09) H 11/16/18 09:50 Assessment/Plan GRAM NEGATIVE BACTEREMIA/ SEPSIS UTI/ SEPSIS SECONDARY TO UTI LEUKOCYTOSIS IMPROVED RENAL FAILURE HX URINARY RETENTION D/C ANTIBIOTICS, OBSERVE OFF
--- NOTE | 2018-11-19 13:43 | PN ---
Physical Exam: SUBJECTIVE: Patient seen and examined resting in bed NAD, no acute events. afebrile and hemodynamically stable. denies hemoptysis, hematemesis, melena,hematochezia, hematuria. OBJECTIVE: Vital Signs Period Temp Pulse Resp BP Sys/Lopez Pulse Ox Last 24 Hr 97.8 F-98.8 F 69-83 16-20 126-161/56-76 96-100 GENERAL: Awake, alert, and fully oriented, in no acute distress. HEAD: Normal with no signs of trauma. EYES: Pupils equal, round and reactive to light, extraocular movements intact, sclera anicteric, conjunctiva clear. No lid lag. EARS, NOSE, THROAT: Moist mucous membranes. NECK: supple bibasilar crackles HEART: Regular rate and rhythm, normal S1 and S2 ABDOMEN: Soft, nontender, not distended, normoactive bowel sounds, no guarding, no rebound MUSCULOSKELETAL: No CVA tenderness. UPPER EXTREMITIES: 2+ pulses, warm, well-perfused. No peripheral edema. LOWER EXTREMITIES: No calf tenderness. NEUROLOGICAL: Cranial nerves II-XII grossly intact. Normal speech. PSYCHIATRIC: Cooperative. Good eye contact. Appropriate mood and flat affect. SKIN: Warm, dry, normal turgor Laboratory Results - last 24 hr 11/18/18 11/18/18 11/19/18 12:41 17:22 06:43 WBC RBC Hgb Hct MCV MCH MCHC RDW Plt Count MPV Retic Count Sodium Potassium Chloride Carbon Dioxide Anion Gap BUN Creatinine Est GFR (CKD-EPI)AfAm Est GFR (CKD-EPI)NonAf POC Glucometer 133 153 170 Random Glucose Calcium Phosphorus Magnesium Total Bilirubin AST ALT Alkaline Phosphatase Total Protein Albumin 11/19/18 11/19/18 11/19/18 09:42 11:37 11:40 WBC 6.6 RBC 2.92 L Hgb 8.3 L Hct 25.7 L MCV 87.7 MCH 28.5 MCHC 32.5 RDW 15.9 Plt Count 281 MPV 7.5 Retic Count 5.67 H Sodium 141 Potassium 3.1 L Chloride 101 Carbon Dioxide 32 Anion Gap 8 BUN 76 H Creatinine 4.0 H Est GFR (CKD-EPI)AfAm 18.04 Est GFR (CKD-EPI)NonAf 15.56 POC Glucometer Random Glucose 109 H Calcium 7.8 L Phosphorus 3.4 Magnesium 2.1 Total Bilirubin 0.3 AST 25 ALT 43 Alkaline Phosphatase 143 H Total Protein 5.8 L Albumin 1.7 L 11/19/18 11:40 WBC RBC Hgb Hct MCV MCH MCHC RDW Plt Count MPV Retic Count Sodium Potassium Chloride Carbon Dioxide Anion Gap BUN Creatinine Est GFR (CKD-EPI)AfAm Est GFR (CKD-EPI)NonAf POC Glucometer 121 Random Glucose Calcium Phosphorus Magnesium Total Bilirubin AST ALT Alkaline Phosphatase Total Protein Albumin Active Medications Generic Name Dose Route Start Last Admin Trade Name Freq PRN Reason Stop Dose Admin Acetaminophen 650 mg 11/17/18 17:56 Tylenol - PO Q6H PRN PAIN LEVEL 1-5 Ergocalciferol 50,000 unit 11/17/18 18:30 Drisdol - PO Mo@1000 S[facility] Finasteride 5 mg 11/18/18 10:00 11/19/18 09:04 Proscar - PO 5 mg DAILY S[facility] Administration Furosemide 40 mg 11/18/18 06:00 11/19/18 06:40 Lasix Injection - IVPUSH 40 mg BID@0600,1400 S[facility] Administration Guaifenesin 5 ml 11/17/18 17:56 Diabetic Tussin Dm - PO Q6H PRN COUGH Hydralazine HCl 50 mg 11/19/18 14:00 Apresoline - PO TID SANGEETHA Ceftriaxone Sodium 1 gm/ 50 mls @ 100 mls/hr 11/18/18 10:00 11/19/18 09:06 Dextrose IVPB 100 mls/hr DAILY SANGEETHA Administration Protocol Sodium Chloride 250 mls @ 3,000 mls/hr 11/17/18 17:56 Normal Saline - IV PRN PRN Hypotension during Dialysis Sodium Chloride 1,000 mls @ 42 mls/hr 11/17/18 18:00 11/18/18 19:06 Normal Saline - IV Not Given ASDIR SANGEETHA Sodium Chloride 250 mls @ 3,000 mls/hr 11/18/18 17:28 Normal Saline - IV 11/19/18 17:28 PRN PRN Hypotension during Dialysis Insulin Aspart 1 vial 11/18/18 07:00 11/19/18 11:47 Novolog Vial Sliding Scale - SQ Not Given TIDAC [facility] Protocol Isosorbide Mononitrate 30 mg 11/18/18 10:00 11/19/18 09:05 Imdur - PO 30 mg DAILY S[facility] Administration Labetalol HCl 300 mg 11/17/18 22:00 11/19/18 09:04 Normodyne - PO 300 mg BID SANGEETHA Administration Nifedipine 30 mg 11/18/18 10:00 11/19/18 09:05 Procardia Xl - PO 30 mg DAILY SANGEET[facility] Administration Pantoprazole Sodium 40 mg 11/17/18 22:00 11/19/18 09:04 Protonix - PO 40 mg BID S[facility]ET[facility] Administration Polyethylene Glycol 17 gm 11/18/18 10:00 11/19/18 09:05 Miralax (For Daily Use) - PO 17 gm DAILY S[facility] Administration Ranolazine 500 mg 11/17/18 22:00 11/19/18 09:04 Ranexa - PO 500 mg BID S[facility]ET[facility] Administration Tamsulosin HCl 0.8 mg 11/18/18 08:30 11/19/18 09:04 Flomax - PO 0.8 mg DAILY@0830 [facility] Administration ASSESSMENT/PLAN: This is a 58 yo M with PMH of 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 admission hgb was 8.7 but has been dropping to 6.6, now 7 s/p 5 units pRBC. normocytic anemia ckd stage 4 on HD CHF exacerbation HTN HLD CAD DM -likely CKD anemia with blood loss anemia -f/u FE studies ferritin value not reliable s/p transfusions but Fe is low so will benefit form IV Fe -LD 250, retic count 5.6, hapto 276 not hemolysing -total protein 5.7, alb 1.8, light chain ration ok -stool occult blood +, egd shows grade d esophagitis, biopsy p/d
--- NOTE | 2018-11-19 14:59 | PN ---
Progress Note (short form) - Note Progress Note: s: no chest pain, palps, dyspnea dizzy TELE: sr Current Medications Generic Name Dose Route Start Last Admin Trade Name Freq PRN Reason Stop Dose Admin Acetaminophen 650 mg 11/17/18 17:56 Tylenol - PO Q6H PRN PAIN LEVEL 1-5 Ergocalciferol 50,000 unit 11/17/18 18:30 Drisdol - PO Mo@1000 [facility] Finasteride 5 mg 11/18/18 10:00 11/19/18 09:04 Proscar - PO 5 mg DAILY [facility] Administration Furosemide 40 mg 11/18/18 06:00 11/19/18 06:40 Lasix Injection - IVPUSH 40 mg BID@0600,1400 [facility] Administration Guaifenesin 5 ml 11/17/18 17:56 Diabetic Tussin Dm - PO Q6H PRN COUGH Hydralazine HCl 50 mg 11/19/18 14:00 Apresoline - PO TID [facility] Ceftriaxone Sodium 1 gm/ 50 mls @ 100 mls/hr 11/18/18 10:00 11/19/18 09:06 Dextrose IVPB 100 mls/hr DAILY [facility] Administration Protocol Sodium Chloride 250 mls @ 3,000 mls/hr 11/17/18 17:56 Normal Saline - IV PRN PRN Hypotension during Dialysis Sodium Chloride 1,000 mls @ 42 mls/hr 11/17/18 18:00 11/18/18 19:06 Normal Saline - IV Not Given ASDIR [facility] Sodium Chloride 250 mls @ 3,000 mls/hr 11/18/18 17:28 Normal Saline - IV 11/19/18 17:28 PRN PRN Hypotension during Dialysis Insulin Aspart 1 vial 11/18/18 07:00 11/19/18 11:47 Novolog Vial Sliding Scale - SQ Not Given TIDAC [facility] Protocol Isosorbide Mononitrate 30 mg 11/18/18 10:00 11/19/18 09:05 Imdur - PO 30 mg DAILY S[facility]HA Administration Labetalol HCl 300 mg 11/17/18 22:00 11/19/18 09:04 Normodyne - PO 300 mg BID S[facility] Administration Nifedipine 30 mg 11/18/18 10:00 11/19/18 09:05 Procardia Xl - PO 30 mg DAILY [facility] Administration Pantoprazole Sodium 40 mg 11/17/18 22:00 11/19/18 09:04 Protonix - PO 40 mg BID [facility] Administration Polyethylene Glycol 17 gm 11/18/18 10:00 11/19/18 09:05 Miralax (For Daily Use) - PO 17 gm DAILY [facility] Administration Ranolazine 500 mg 11/17/18 22:00 11/19/18 09:04 Ranexa - PO 500 mg BID S[facility]ETHA Administration Tamsulosin HCl 0.8 mg 11/18/18 08:30 11/19/18 09:04 Flomax - PO 0.8 mg DAILY@0830 [facility] Administration Vital Signs Period Temp Pulse Resp BP Sys/Lopez Pulse Ox Last 24 Hr 97.8 F-98.8 F 71-83 16-20 126-161/56-76 96-100 Constitutional: Yes: No Distress Cardiovascular: Yes: Regular Rate and Rhythm Respiratory: Yes: Other (decreased breath sounds at bases. No active wheezing.) Gastrointestinal: Yes: Soft, Abdomen, Obese Edema: trace Neurological: Yes: Alert, Oriented no jaundice diaphoresis not agitated CBC, BMP 11/19/18 11:40 11/19/18 11:37 Assessment/Plan 1. Acute systolic HF exacerbation: - EF 40-45% - cont labetolol, not on ACEI/ARB for CKD - continue hydralzine and imdur. - edema improving with HD, weight down, volume management per renal 2. CKD - renal following - holding aspirin and plavix for kidney bx - HD per renal 3. CAD: - s/p FER most recently 09/2017, 10/2017 - on aspirin and plavix, holding for planned kidney bx 4. HTN: - stable 5. anemia: -s/p egd with esophagitis dc tele
--- NOTE | 2018-11-19 15:41 | PN ---
Progress Note (short form) - Note Progress Note: Renal follow up for CKD Pt seen and examined during dialysis awake and alert BP stable, UF 3L on 3K bath no acute complaints s/p EGD yesterday Vital Signs Temperature 98.4 F 11/19/18 15:15 Pulse Rate 78 11/19/18 15:15 Respiratory Rate 20 11/19/18 15:15 Blood Pressure 144/76 11/19/18 15:15 O2 Sat by Pulse Oximetry (%) 96 11/19/18 07:57 Intake & Output 11/16/18 11/17/18 11/18/18 11/19/18 23:59 23:59 23:59 23:59 Intake Total 360 340 100 Output Total 500 620 Balance -140 -280 100 Weight 118.478 kg 119.204 kg 115.212 kg 116.392 kg NAD RRR, no M/R Dec BS at lung bases, + rales soft obese, NT/ND + upper extremity edema ++ bilateral LE edema CBC, BMP 11/19/18 11:40 11/19/18 11:37 Current Medications Acetaminophen (Tylenol -) 650 mg PO Q6H PRN PRN Reason: PAIN LEVEL 1-5 Ergocalciferol (Drisdol -) 50,000 unit PO Mo@1000 [facility] Finasteride (Proscar -) 5 mg PO DAILY [facility] Last Admin: 11/19/18 09:04 Dose: 5 mg Furosemide (Lasix Injection -) 40 mg IVPUSH BID@0600,1400 [facility] Last Admin: 11/19/18 06:40 Dose: 40 mg Guaifenesin (Diabetic Tussin Dm -) 5 ml PO Q6H PRN PRN Reason: COUGH Hydralazine HCl (Apresoline -) 50 mg PO TID [facility] Ceftriaxone Sodium 1 gm/ (Dextrose) 50 mls @ 100 mls/hr IVPB DAILY [facility]; Protocol Last Admin: 11/19/18 09:06 Dose: 100 mls/hr Sodium Chloride (Normal Saline -) 250 mls @ 3,000 mls/hr IV PRN PRN PRN Reason: Hypotension during Dialysis Sodium Chloride (Normal Saline -) 1,000 mls @ 42 mls/hr IV ASDIR [facility] Last Admin: 11/18/18 19:06 Dose: Not Given Sodium Chloride (Normal Saline -) 250 mls @ 3,000 mls/hr IV PRN PRN PRN Reason: Hypotension during Dialysis Stop: 11/19/18 17:28 Insulin Aspart (Novolog Vial Sliding Scale -) 1 vial SQ TIDAC [facility]; Protocol Last Admin: 11/19/18 11:47 Dose: Not Given Isosorbide Mononitrate (Imdur -) 30 mg PO DAILY [facility] Last Admin: 11/19/18 09:05 Dose: 30 mg Labetalol HCl (Normodyne -) 300 mg PO BID [facility] Last Admin: 11/19/18 09:04 Dose: 300 mg Nifedipine (Procardia Xl -) 30 mg PO DAILY [facility] Last Admin: 11/19/18 09:05 Dose: 30 mg Pantoprazole Sodium (Protonix -) 40 mg PO BID [facility] Last Admin: 11/19/18 09:04 Dose: 40 mg Polyethylene Glycol (Miralax (For Daily Use) -) 17 gm PO DAILY [facility] Last Admin: 11/19/18 09:05 Dose: 17 gm Ranolazine (Ranexa -) 500 mg PO BID [facility] Last Admin: 11/19/18 09:04 Dose: 500 mg Tamsulosin HCl (Flomax -) 0.8 mg PO DAILY@0830 [facility] Last Admin: 11/19/18 09:04 Dose: 0.8 mg 58 year old gentleman with hx of CKD with proteinuria, CHF, CAD s/p PCI, Hypertension, hyperlipidemia who preesnted from home with LE swelling and sob and admitted for CHF exacerbation with Cr of 2.4-2.6. 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 Prater should have some recovery of renal function once ATN resolves tolerating HD well today will continue 3x weeky HD for now will need outpatient HD placement change Lasix to once daily Thank you Mansoor Quiroz DO
[2018-11-19] MEDS: hydrALAZINE HCL 50 MG TABLET (FP) PO SCH ×2 (16:13→22:58)
--- NOTE | 2018-11-19 17:30 | PN ---
Teaching Attending Note Name of Resident: Harsh Ponce ATTENDING PHYSICIAN STATEMENT I saw and evaluated the patient. I reviewed the resident's note and discussed the case with the resident. I agree with the resident's findings and plan as documented. SUBJECTIVE: Mr Prater says he feels blessed. Denies cp, sob, n/v. Says he is going home and refusing SNF OBJECTIVE: Last Vital Signs Temp Pulse Resp BP Pulse Ox 36.9 C 78 18 149/76 96 11/19/18 15:30 11/19/18 15:30 11/19/18 15:30 11/19/18 15:30 11/19/18 07:57 Gen: nad Pulm: ctab w/o w/r/r CV: rrr w/o m/r/g Abd: +bs, s/nt/nd Ext: 1+ BLE edema CBC, BMP 11/19/18 11:40 11/19/18 11:37 ASSESSMENT AND PLAN: (1) CHF (congestive heart failure) Assessment/Plan: -continue HD Code(s): I50.9 - HEART FAILURE, UNSPECIFIED Qualifiers: Heart failure type: systolic Heart failure chronicity: acute on chronic Qualified Code(s): I50.23 - Acute on chronic systolic (congestive) heart failure (2) GABI (acute kidney injury) Assessment/Plan -secondary to diabetic nephropathy per Dr Quiroz -continue HD Code(s): N17.9 - ACUTE KIDNEY FAILURE, UNSPECIFIED (3) CKD (chronic kidney disease) stage 4, GFR 15-29 ml/min Assessment/Plan: -continue HD, set up for outpatient HD Code(s): N18.4 - CHRONIC KIDNEY DISEASE, STAGE 4 (SEVERE) (4) Sepsis secondary to UTI Assessment/Plan: -continue rocephin -day Code(s): A41.9 - SEPSIS, UNSPECIFIED ORGANISM (5) Insulin dependent diabetes mellitus Assessment/Plan: -continue diabetic diet and insulin Code(s): E11.9 - TYPE 2 DIABETES MELLITUS WITHOUT COMPLICATIONS; Z79.4 - STUDENT SERVICES DEAN (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 OF INSULIN (6) Anemia -EGD reviewed -continue protonix -will need outpatient EGD in 2 months Dispo -patient ready for discharge tomorrow, made aware -patient would benefit from SNF but is refusing -will d/w to make aware that patient wants to come home and is ready for discharge tomorrow Problem List - Problems (1) CHF (congestive heart failure) Code(s): I50.9 - HEART FAILURE, UNSPECIFIED Qualifiers: Heart failure type: systolic Heart failure chronicity: acute on chronic Qualified Code(s): I50.23 - Acute on chronic systolic (congestive) heart failure (2) GABI (acute kidney injury) Code(s): N17.9 - ACUTE KIDNEY FAILURE, UNSPECIFIED (3) CKD (chronic kidney disease) stage 4, GFR 15-29 ml/min Code(s): N18.4 - CHRONIC KIDNEY DISEASE, STAGE 4 (SEVERE) (4) Sepsis Code(s): A41.9 - SEPSIS, UNSPECIFIED ORGANISM (5) Insulin dependent diabetes mellitus Code(s): E11.9 - TYPE 2 DIABETES MELLITUS WITHOUT COMPLICATIONS; Z79.4 - STUDENT SERVICES DEAN (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 OF INSULIN (6) UTI (urinary tract infection) Code(s): N39.0 - URINARY TRACT INFECTION, SITE NOT SPECIFIED Qualifiers: Urinary tract infection type: acute cystitis Hematuria presence: without hematuria Qualified Code(s): N30.00 - Acute cystitis without hematuria
[2018-11-19] MEDS ORDERED: IRON SUCROSE INJECTION 100 MG in SODIUM CHLORIDE 95 ML IVPB ONE (17:42)
--- NOTE | 2018-11-19 18:10 | OP ---
DATE OF OPERATION: 11/17/2018 PREOPERATIVE DIAGNOSIS: End-stage renal disease. POSTOPERATIVE DIAGNOSIS: End-stage renal disease. PROCEDURE: Insertion of Permacath. SURGEON: Luis Manuel Faith DO ANESTHESIA: Fractional. BLOOD LOSS: 20 mL. Patient is a 58-year-old male that has temporary Shiley catheter in his right neck, right internal jugular vein, that needs to be switched over to a Permacath. Patient was consented for the procedure understanding all risks, benefits, and alternatives, and taken to the operating room. Once in the operating room, was laid on the operating table in a supine manner. The area of the right neck and chest were prepped and draped in sterile surgical manner. We then placed a 0.035 floppy guidewire into our temporary Shiley catheter, and the Shiley catheter was removed. We then changed our gloves for sterility purposes. We then injected 10 mL of lidocaine 1% above and below the clavicle. We then took an 11 blade and made a 1-cm incision at the puncture site. We then took a number 15 blade and made a 1-cm incision below the clavicle. We then tunneled the Permacath up to the puncture site. We then placed our breakaway sheath over the guidewire into the vein under fluoroscopy, and the cannula and guidewire were removed. Catheter was placed inside the sheath. Sheath was broken away. The catheter was placed inside the vein. Neck of the catheter was nice and smooth. Tip of the catheter was located outside of the right atrium. We then rola back on each port of the catheter, and there was good flow. Heparinized saline was injected, and 2000 units of IV heparin was injected into each port. Biosyn 4-0 was then used in 2 simple stitches were placed at the puncture site. Nylon 3-0 was used, and the catheter was attached to the skin. BIOPATCH, 4 x 4's, Steri-Strips, and Tegaderm were placed. Patient tolerated the procedure with no complications. Patient was transferred to PACU in stable condition where a chest x-ray will be ordered. LUIS MANUEL FAITH DO ASSISTANT OCEANOGRAPHER/[id number]
[2018-11-19] MEDS: guaiFENesin/D-M SUGAR-FREE/ACLHOL-FREE 118 ML BOTTLE PO PRN (23:05)
[2018-11-20] MEDS: INSULIN SLIDING SCALE (NOVOLOG) 1 VIAL SQ SCH ×3 (06:22→16:48)
[2018-11-20] MEDS: hydrALAZINE HCL 50 MG TABLET (FP) PO SCH ×3 (06:23→21:43)
[2018-11-20 06:59] LABS: BASO % 1.2 % (0-2.0); EOS % 1.3 % (0-4.5); HEMATOCRIT 27.8 % (35.4-49); HEMOGLOBIN 9.1 GM/dL (11.7-16.9); LYMPH % 13.1 % (8-40); MCH 28.9 pg (25.7-33.7); MCHC 32.5 g/dl (32.0-35.9); MEAN CELL VOLUME 88.9 fl (80-96); MEAN PLT VOLUME 7.1 fl (7.5-11.1); MONO % 12.5 % (3.8-10.2); NEUT % 71.9 % (42.8-82.8); PLATELET COUNT 239 K/MM3 (134-434); RBC 3.13 M/mm3 (4.00-5.60); RDW 15.7 % (11.9-15.9); WHITE BLOOD COUNT 6.5 K/mm3 (4.0-10.0)
[2018-11-20 07:06] LABS: CALCIUM 7.4 mg/dL (8.5-10.1); CREATININE 2.7 mg/dL (0.55-1.3); MAGNESIUM 1.9 mg/dL (1.8-2.4); PHOSPHOROUS 2.6 mg/dL (2.5-4.9); POTASSIUM 3.3 mmol/L (3.5-5.1)
[2018-11-20 08:06] LABS: IGM IMMUNOGLOBULIN 47 mg/dL (20-172)
[2018-11-20] MEDS ORDERED: cefTRIAXone SODIUM 1 GM VIAL ONE (08:38)
[2018-11-20] MEDS ORDERED: DEXTROSE 5%-WATER - 50 ML IVPB ONE (08:38)
[2018-11-20] MEDS: LABETALOL HCL 200 MG TABLET (FP) PO SCH ×2 (09:25→21:43)
[2018-11-20] MEDS: ISOSORBIDE MONONITRATE 30 MG TAB.SR.24H (FP) PO SCH (09:25)
[2018-11-20] MEDS: FUROSEMIDE 40 MG/4 ML INJECTABLE VIAL IVPUSH SCH (09:26)
[2018-11-20] MEDS: PANTOPRAZOLE 40 MG TABLET (FP) PO SCH ×2 (09:26→21:43)
[2018-11-20] MEDS: NIFEdipine E.R. 30 MG TABLET (FP) PO SCH (09:26)
[2018-11-20] MEDS: TAMSULOSIN HCL 0.4 MG CAP PO SCH (09:26)
[2018-11-20] MEDS: FINASTERIDE 5 MG TABLET (FP) PO SCH (09:26)
[2018-11-20] MEDS: RANOLAZINE E.R. 500 MG TABLET (FP) PO SCH ×2 (09:27→21:43)
[2018-11-20] MEDS: POLYETHYLENE GLYCOL 3350 119 GM BTL PO SCH (09:27)
[2018-11-20] MEDS: CEFTRIAXONE 1 GM in DEXTROSE 5%-WATER - 50 ML IVPB SCH (09:27)
--- NOTE | 2018-11-20 09:28 | PN ---
Progress Note, Physician Chief Complaint: no CP orSOB TELE: NSR, 3beats NSVT - Current Medication List Current Medications: Active Medications Acetaminophen (Tylenol -) 650 mg PO Q6H PRN PRN Reason: PAIN LEVEL 1-5 Ergocalciferol (Drisdol -) 50,000 unit PO Mo@1000 [facility] Finasteride (Proscar -) 5 mg PO DAILY [facility] Last Admin: 11/20/18 09:26 Dose: 5 mg Furosemide (Lasix Injection -) 40 mg IVPUSH DAILY [facility] Last Admin: 11/20/18 09:26 Dose: 40 mg Guaifenesin (Diabetic Tussin Dm -) 5 ml PO Q6H PRN PRN Reason: COUGH Last Admin: 11/19/18 23:05 Dose: 5 ml Hydralazine HCl (Apresoline -) 50 mg PO TID [facility] Last Admin: 11/20/18 06:23 Dose: 50 mg Ceftriaxone Sodium 1 gm/ (Dextrose) 50 mls @ 100 mls/hr IVPB DAILY [facility]; Protocol Last Admin: 11/20/18 09:27 Dose: 100 mls/hr Sodium Chloride (Normal Saline -) 250 mls @ 3,000 mls/hr IV PRN PRN PRN Reason: Hypotension during Dialysis Insulin Aspart (Novolog Vial Sliding Scale -) 1 vial SQ TIDAC [facility]; Protocol Last Admin: 11/20/18 06:22 Dose: Not Given Isosorbide Mononitrate (Imdur -) 30 mg PO DAILY [facility] Last Admin: 11/20/18 09:25 Dose: 30 mg Labetalol HCl (Normodyne -) 300 mg PO BID [facility] Last Admin: 11/20/18 09:25 Dose: 300 mg Nifedipine (Procardia Xl -) 30 mg PO DAILY [facility] Last Admin: 11/20/18 09:26 Dose: 30 mg Pantoprazole Sodium (Protonix -) 40 mg PO BID [facility] Last Admin: 11/20/18 09:26 Dose: 40 mg Polyethylene Glycol (Miralax (For Daily Use) -) 17 gm PO DAILY [facility] Last Admin: 11/20/18 09:27 Dose: Not Given Ranolazine (Ranexa -) 500 mg PO BID [facility] Last Admin: 11/20/18 09:27 Dose: 500 mg Tamsulosin HCl (Flomax -) 0.8 mg PO DAILY@0830 [facility] Last Admin: 11/20/18 09:26 Dose: 0.8 mg - Objective Vital Signs: Vital Signs Temperature 98.7 F 11/20/18 09:23 Pulse Rate 80 11/20/18 09:23 Respiratory Rate 18 11/20/18 09:23 Blood Pressure 147/71 11/20/18 09:23 O2 Sat by Pulse Oximetry (%) 100 11/19/18 21:00 Constitutional: Yes: No Distress, Calm Cardiovascular: Yes: Regular Rate and Rhythm Respiratory: Yes: CTA Bilaterally Gastrointestinal: Yes: Soft Edema: No Neurological: Yes: Alert, Oriented Labs: CBC, BMP 11/20/18 05:30 11/20/18 05:30 INR, PTT INR 1.30 (0.83-1.09) H 11/16/18 09:50 - ....Imaging EKG: Image Reviewed (NSR, 3 beats NSVT) Assessment/Plan Assessment/Plan 1. Acute systolic HF exacerbation: - EF 40-45% - cont labetolol, not on ACEI/ARB for CKD - continue hydralzine and imdur. - edema improving with HD, weight down, volume management per renal 2. CKD - renal following - s/p kidney bx, resume ASA when possible - HD per renal 3. CAD: - s/p FER most recently 09/2017, 10/2017 - resume ASA when possible now s/p kidney bx 4. HTN: - stable 5. anemia: -s/p egd with esophagitis dc tele
[2018-11-20 10:52] LABS: RETICULOCYTES 4.14 % (0.5-1.5)
[2018-11-20] MEDS: ASPIRIN 81 MG CHEWABLE TABLETS PO SCH (13:39)
--- NOTE | 2018-11-20 14:04 | PATH ---
Surgical Pathology Report Patient Name: FILIPPO RICHARD [facility]. Rec. #: [id number] /Age/Gender: 1960 (Age: 58) / M Account: [id number] Location: 4 W TELEMETRY U Taken: 11/18/2018 Received: 11/19/2018 Reported: 11/20/2018 Physicians: MD Edmund Marsh M.D. Specimen(s) Received ANTRUM Clinical History Anemia Postoperative diagnosis: Severe esophagitis Final Diagnosis ANTRUM, BIOPSY: GASTRIC MUCOSA WITH MILD CHRONIC, FOCALLY ACUTE GASTRITIS. REACTIVE GASTROPATHY PRESENT. IMMUNOSTAIN FOR H. PYLORI IS NEGATIVE. NEGATIVE FOR INTESTINAL METAPLASIA. Electronically Signed Oneyda Plasencia M.D. Gross Description Received in, labeled "antrum" is one piece of light arevalo, tissue, measuring 0.4 cm in greatest dimension. Entirely submitted in one cassette. AE/11/19/2018 ebram/11/19/2018
[2018-11-20] MEDS ORDERED: SODIUM CHLORIDE 250 ML IV PRN ×2 (14:21→14:22)
--- NOTE | 2018-11-20 14:21 | PN ---
Progress Note (short form) - Note Progress Note: Renal follow up for CKD Pt seen and examined at the bedside has no acute complaints feels tired because he could not sleep well last night due to his neighbor no sob, cp, abd pain, N/V/D making urine Vital Signs Temperature 98.7 F 11/20/18 09:23 Pulse Rate 80 11/20/18 09:23 Respiratory Rate 18 11/20/18 09:23 Blood Pressure 147/71 11/20/18 09:23 O2 Sat by Pulse Oximetry (%) 95 11/20/18 09:00 Intake & Output 11/17/18 11/18/18 11/19/18 11/20/18 23:59 23:59 23:59 23:59 Intake Total 586 390 3294 100 Output Total 620 900 Balance -709 129 1533 100 Weight 119.204 kg 115.212 kg 116.392 kg NAD RRR, no M/R CTA soft obese, NT/ND edema improved CBC, BMP 11/20/18 05:30 11/20/18 05:30 Current Medications Acetaminophen (Tylenol -) 650 mg PO Q6H PRN PRN Reason: PAIN LEVEL 1-5 Aspirin (Asa -) 81 mg PO DAILY [facility] Last Admin: 11/20/18 13:39 Dose: 81 mg Ergocalciferol (Drisdol -) 50,000 unit PO Mo@1000 [facility] Finasteride (Proscar -) 5 mg PO DAILY [facility] Last Admin: 11/20/18 09:26 Dose: 5 mg Furosemide (Lasix Injection -) 40 mg IVPUSH DAILY [facility] Last Admin: 11/20/18 09:26 Dose: 40 mg Guaifenesin (Diabetic Tussin Dm -) 5 ml PO Q6H PRN PRN Reason: COUGH Last Admin: 11/19/18 23:05 Dose: 5 ml Hydralazine HCl (Apresoline -) 50 mg PO TID [facility] Last Admin: 11/20/18 13:39 Dose: 50 mg Ceftriaxone Sodium 1 gm/ (Dextrose) 50 mls @ 100 mls/hr IVPB DAILY [facility]; Protocol Last Admin: 11/20/18 09:27 Dose: 100 mls/hr Sodium Chloride (Normal Saline -) 250 mls @ 3,000 mls/hr IV PRN PRN PRN Reason: Hypotension during Dialysis Insulin Aspart (Novolog Vial Sliding Scale -) 1 vial SQ TIDAC [facility]; Protocol Last Admin: 11/20/18 11:33 Dose: 2 units Isosorbide Mononitrate (Imdur -) 30 mg PO DAILY [facility] Last Admin: 11/20/18 09:25 Dose: 30 mg Labetalol HCl (Normodyne -) 300 mg PO BID [facility] Last Admin: 11/20/18 09:25 Dose: 300 mg Nifedipine (Procardia Xl -) 30 mg PO DAILY [facility] Last Admin: 11/20/18 09:26 Dose: 30 mg Pantoprazole Sodium (Protonix -) 40 mg PO BID [facility] Last Admin: 11/20/18 09:26 Dose: 40 mg Polyethylene Glycol (Miralax (For Daily Use) -) 17 gm PO DAILY [facility] Last Admin: 11/20/18 09:27 Dose: Not Given Ranolazine (Ranexa -) 500 mg PO BID [facility] Last Admin: 11/20/18 09:27 Dose: 500 mg Tamsulosin HCl (Flomax -) 0.8 mg PO DAILY@0830 [facility] Last Admin: 11/20/18 09:26 Dose: 0.8 mg 58 year old gentleman with hx of CKD with proteinuria, CHF, CAD s/p PCI, Hypertension, hyperlipidemia who preesnted from home with LE swelling and sob and admitted for CHF exacerbation with Cr of 2.4-2.6. 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 Prater should have some recovery of renal function once ATN resolves no indication for LEAD SUSTAINABILITY SPECIALIST today, next dialysis in AM will need dialysis for GABI for the near future, outpatient HD placement pending physical therapy to restart Aspirin (discussed with cardiology and IR) will continue high dose RICHARD with HD Thank you Mansoor Quiroz DO
--- NOTE | 2018-11-20 14:31 | DS ---
Physical Examination Vital Signs: Vital Signs Temperature 37.1 C 11/20/18 09:23 Pulse Rate 80 11/20/18 09:23 Respiratory Rate 18 11/20/18 09:23 Blood Pressure 147/71 11/20/18 09:23 O2 Sat by Pulse Oximetry (%) 95 11/20/18 09:00 Labs: CBC, BMP 11/20/18 05:30 11/20/18 05:30 Discharge Summary Reason For Visit: CHF Current Active Problems Anemia (Acute) CAD (coronary artery disease) (Acute) CHF (congestive heart failure) (Acute) CKD (chronic kidney disease) stage 4, GFR 15-29 ml/min (Acute) Heart failure, diastolic, with acute decompensation (Acute) Pleural effusion, bilateral (Acute) Reflux esophagitis (Acute) Sepsis (Acute) UTI (urinary tract infection) (Acute) Condition: Guarded - Instructions Diet, Activity, Other Instructions: Ambulate with walker, up with assistance. Diabetic/renal diet. Referrals: Waldemar Eid MD [Primary Care Provider] - Corwin Neville DO [Staff Physician] - Juan Stewart MD [Staff Physician] - Luis Manuel Ponce DO [Staff Physician] - Mansoor Quiroz MD [Staff Physician] - Disposition: VNS/HOME HEALTH CARE - Home Medications Comprehensive Discharge Medication List: Ambulatory Orders Ergocalciferol (Vitamin D2) [Vitamin D2] 50,000 unit PO WEEKLY 09/25/18 Aspirin [Aspirin EC] 81 mg PO DAILY 10/11/18 Aspirin [ASA -] 81 mg PO DAILY #30 tab.chew 11/20/18 Atorvastatin Ca [Lipitor] 40 mg PO HS #30 tablet 11/20/18 Clopidogrel Bisulfate [Plavix -] 75 mg PO DAILY #30 tablet 11/20/18 Finasteride [Proscar -] 5 mg PO DAILY #30 tablet 11/20/18 Furosemide [Lasix -] 80 mg PO DAILY #60 tablet 11/20/18 Glipizide [Glucotrol] 5 mg PO BID #60 tablet 11/20/18 Isosorbide Mononitrate [Imdur -] 30 mg PO DAILY #30 tab.sr.24h 11/20/18 Labetalol HCl [Normodyne -] 300 mg PO BID #180 tablet 05/17/19 Nifedipine ER [Procardia XL -] 30 mg PO DAILY #30 tab.er.24 11/20/18 Pantoprazole Sodium [Protonix -] 40 mg PO BID #60 tablet.ec 11/20/18 Ranolazine [Ranexa -] 500 mg PO BID #60 tab 11/20/18 Tamsulosin HCl [Flomax] 0.4 mg PO DAILY #30 capsule 11/20/18 hydrALAZINE HCL [Apresoline -] 50 mg PO TID #90 tablet 11/20/18
--- NOTE | 2018-11-20 17:14 | PN ---
Progress Note, Physician Chief Complaint: Mr Prater says he feels blessed. Denies cp, sob, n/v. - Current Medication List Current Medications: Active Medications Acetaminophen (Tylenol -) 650 mg PO Q6H PRN PRN Reason: PAIN LEVEL 1-5 Aspirin (Asa -) 81 mg PO DAILY [facility] Last Admin: 11/20/18 13:39 Dose: 81 mg Epoetin Uche (Epogen -) 20,000 unit IVPUSH ONCE ONE Stop: 11/21/18 06:01 Ergocalciferol (Drisdol -) 50,000 unit PO Mo@1000 [facility] Finasteride (Proscar -) 5 mg PO DAILY [facility] Last Admin: 11/20/18 09:26 Dose: 5 mg Furosemide (Lasix Injection -) 40 mg IVPUSH DAILY [facility] Last Admin: 11/20/18 09:26 Dose: 40 mg Guaifenesin (Diabetic Tussin Dm -) 5 ml PO Q6H PRN PRN Reason: COUGH Last Admin: 11/19/18 23:05 Dose: 5 ml Hydralazine HCl (Apresoline -) 50 mg PO TID [facility] Last Admin: 11/20/18 13:39 Dose: 50 mg Ceftriaxone Sodium 1 gm/ (Dextrose) 50 mls @ 100 mls/hr IVPB DAILY [facility]; Protocol Last Admin: 11/20/18 09:27 Dose: 100 mls/hr Sodium Chloride (Normal Saline -) 250 mls @ 3,000 mls/hr IV PRN PRN PRN Reason: Hypotension during Dialysis Sodium Chloride (Normal Saline -) 250 mls @ 3,000 mls/hr IV PRN PRN PRN Reason: Hypotension during Dialysis Stop: 11/21/18 14:21 Sodium Chloride (Normal Saline -) 250 mls @ 3,000 mls/hr IV PRN PRN PRN Reason: Hypotension during Dialysis Stop: 11/21/18 14:22 Insulin Aspart (Novolog Vial Sliding Scale -) 1 vial SQ TIDAC [facility]; Protocol Last Admin: 11/20/18 16:48 Dose: Not Given Isosorbide Mononitrate (Imdur -) 30 mg PO DAILY [facility] Last Admin: 11/20/18 09:25 Dose: 30 mg Labetalol HCl (Normodyne -) 300 mg PO BID [facility] Last Admin: 11/20/18 09:25 Dose: 300 mg Nifedipine (Procardia Xl -) 30 mg PO DAILY [facility] Last Admin: 11/20/18 09:26 Dose: 30 mg Pantoprazole Sodium (Protonix -) 40 mg PO BID [facility] Last Admin: 11/20/18 09:26 Dose: 40 mg Polyethylene Glycol (Miralax (For Daily Use) -) 17 gm PO DAILY [facility] Last Admin: 11/20/18 09:27 Dose: Not Given Ranolazine (Ranexa -) 500 mg PO BID [facility] Last Admin: 11/20/18 09:27 Dose: 500 mg Tamsulosin HCl (Flomax -) 0.8 mg PO DAILY@0830 [facility] Last Admin: 11/20/18 09:26 Dose: 0.8 mg - Objective Vital Signs: Vital Signs Temperature 37.2 C 11/20/18 14:20 Pulse Rate 80 11/20/18 14:20 Respiratory Rate 16 11/20/18 14:20 Blood Pressure 144/72 11/20/18 14:20 O2 Sat by Pulse Oximetry (%) 95 11/20/18 09:00 Constitutional: Yes: No Distress, Calm, Obese Cardiovascular: Yes: Regular Rate and Rhythm. No: Gallop, Murmur, Rub Respiratory: Yes: Regular, CTA Bilaterally. No: Rales, Rhonchi, Wheezes Gastrointestinal: Yes: Normal Bowel Sounds, Soft. No: Distention, Tenderness Extremities: Yes: WNL Edema: No Labs: CBC, BMP 11/20/18 05:30 11/20/18 05:30 INR, PTT INR 1.30 (0.83-1.09) H 11/16/18 09:50 Problem List - Problems (1) CHF (congestive heart failure) Code(s): I50.9 - HEART FAILURE, UNSPECIFIED Qualifiers: Heart failure type: systolic Heart failure chronicity: acute on chronic Qualified Code(s): I50.23 - Acute on chronic systolic (congestive) heart failure (2) GABI (acute kidney injury) Code(s): N17.9 - ACUTE KIDNEY FAILURE, UNSPECIFIED (3) CKD (chronic kidney disease) stage 4, GFR 15-29 ml/min Code(s): N18.4 - CHRONIC KIDNEY DISEASE, STAGE 4 (SEVERE) (4) Sepsis Code(s): A41.9 - SEPSIS, UNSPECIFIED ORGANISM (5) Insulin dependent diabetes mellitus Code(s): E11.9 - TYPE 2 DIABETES MELLITUS WITHOUT COMPLICATIONS; Z79.4 - 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 PROFESSOR (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 OF 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 (6) UTI (urinary tract infection) Code(s): N39.0 - URINARY TRACT INFECTION, SITE NOT SPECIFIED Qualifiers: Urinary tract infection type: acute cystitis Hematuria presence: without hematuria Qualified Code(s): N30.00 - Acute cystitis without hematuria Assessment/Plan (1) CHF (congestive heart failure) Assessment/Plan: -continue HD Code(s): I50.9 - HEART FAILURE, UNSPECIFIED Qualifiers: Heart failure type: systolic Heart failure chronicity: acute on chronic Qualified Code(s): I50.23 - Acute on chronic systolic (congestive) heart failure (2) GABI (acute kidney injury) Assessment/Plan -secondary to diabetic nephropathy per Dr Quiroz -continue HD Code(s): N17.9 - ACUTE KIDNEY FAILURE, UNSPECIFIED (3) CKD (chronic kidney disease) stage 4, GFR 15-29 ml/min Assessment/Plan: -continue HD, set up for outpatient HD Code(s): N18.4 - CHRONIC KIDNEY DISEASE, STAGE 4 (SEVERE) (4) Sepsis secondary to UTI Assessment/Plan: -finished full course of rocephin Code(s): A41.9 - SEPSIS, UNSPECIFIED ORGANISM (5) Insulin dependent diabetes mellitus Assessment/Plan: -continue diabetic diet and insulin Code(s): E11.9 - TYPE 2 DIABETES MELLITUS WITHOUT COMPLICATIONS; Z79.4 - [facility] (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 OF INSULIN (6) Anemia -EGD reviewed -continue protonix -will need outpatient EGD in 2 months Dispo -discharge home tomorrow after HD
[2018-11-20] MEDS: guaiFENesin/D-M SUGAR-FREE/ACLHOL-FREE 118 ML BOTTLE PO PRN (21:49)
[2018-11-20 23:08] LABS: IGG SUBCLASS 1 881 mg/dL (248-810); IGG SUBCLASS 2 449 mg/dL (130-555); IGG SUBCLASS 3 90 mg/dL (15-102); IGG SUBCLASS 4 39 mg/dL (2-96)
[2018-11-21] MEDS: INSULIN SLIDING SCALE (NOVOLOG) 1 VIAL SQ SCH ×3 (06:12→16:48)
[2018-11-21] MEDS: hydrALAZINE HCL 50 MG TABLET (FP) PO SCH ×2 (06:57→14:19)
[2018-11-21 07:46] LABS: HEMATOCRIT 28.5 % (35.4-49); HEMOGLOBIN 8.9 GM/dL (11.7-16.9); MCH 28.1 pg (25.7-33.7); MCHC 31.4 g/dl (32.0-35.9); MEAN CELL VOLUME 89.7 fl (80-96); MEAN PLT VOLUME 6.9 fl (7.5-11.1); PLATELET COUNT 222 K/MM3 (134-434); RBC 3.17 M/mm3 (4.00-5.60); RDW 15.9 % (11.9-15.9); WHITE BLOOD COUNT 5.7 K/mm3 (4.0-10.0)
[2018-11-21] MEDS ORDERED: EPOETIN ALFA 20,000 UNIT/1 ML VIAL IVPUSH ONE (08:00)
[2018-11-21 08:10] LABS: CALCIUM 7.5 mg/dL (8.5-10.1); CREATININE 3.5 mg/dL (0.55-1.3); PHOSPHOROUS 2.4 mg/dL (2.5-4.9); POTASSIUM 3.1 mmol/L (3.5-5.1)
[2018-11-21] MEDS: TAMSULOSIN HCL 0.4 MG CAP PO SCH (08:14)
[2018-11-21] MEDS ORDERED: PT OWN MED DRAWER 7, Y5N ONE (08:49)
--- NOTE | 2018-11-21 09:13 | PN ---
Progress Note, Physician Chief Complaint: receiving HD No CP or SOB TELE: NSR. 3 beats NSVT - Current Medication List Current Medications: Active Medications Acetaminophen (Tylenol -) 650 mg PO Q6H PRN PRN Reason: PAIN LEVEL 1-5 Aspirin (Asa -) 81 mg PO DAILY [facility] Last Admin: 11/20/18 13:39 Dose: 81 mg Ergocalciferol (Drisdol -) 50,000 unit PO Mo@1000 [facility] Finasteride (Proscar -) 5 mg PO DAILY [facility] Last Admin: 11/20/18 09:26 Dose: 5 mg Furosemide (Lasix Injection -) 40 mg IVPUSH DAILY [facility] Last Admin: 11/20/18 09:26 Dose: 40 mg Guaifenesin (Diabetic Tussin Dm -) 5 ml PO Q6H PRN PRN Reason: COUGH Last Admin: 11/20/18 21:49 Dose: 5 ml Hydralazine HCl (Apresoline -) 50 mg PO TID [facility] Last Admin: 11/21/18 06:57 Dose: 50 mg Sodium Chloride (Normal Saline -) 250 mls @ 3,000 mls/hr IV PRN PRN PRN Reason: Hypotension during Dialysis Sodium Chloride (Normal Saline -) 250 mls @ 3,000 mls/hr IV PRN PRN PRN Reason: Hypotension during Dialysis Stop: 11/21/18 14:21 Sodium Chloride (Normal Saline -) 250 mls @ 3,000 mls/hr IV PRN PRN PRN Reason: Hypotension during Dialysis Stop: 11/21/18 14:22 Insulin Aspart (Novolog Vial Sliding Scale -) 1 vial SQ TIDAC [facility]; Protocol Last Admin: 11/21/18 06:12 Dose: Not Given Isosorbide Mononitrate (Imdur -) 30 mg PO DAILY [facility] Last Admin: 11/20/18 09:25 Dose: 30 mg Labetalol HCl (Normodyne -) 300 mg PO BID [facility] Last Admin: 11/20/18 21:43 Dose: 300 mg Nifedipine (Procardia Xl -) 30 mg PO DAILY [facility] Last Admin: 11/20/18 09:26 Dose: 30 mg Pantoprazole Sodium (Protonix -) 40 mg PO BID [facility] Last Admin: 11/20/18 21:43 Dose: 40 mg Polyethylene Glycol (Miralax (For Daily Use) -) 17 gm PO DAILY [facility] Last Admin: 11/20/18 09:27 Dose: Not Given Ranolazine (Ranexa -) 500 mg PO BID [facility] Last Admin: 11/20/18 21:43 Dose: 500 mg Tamsulosin HCl (Flomax -) 0.8 mg PO DAILY@0830 [facility] Last Admin: 11/21/18 08:14 Dose: 0.8 mg - Objective Vital Signs: Vital Signs Temperature 98.6 F 11/21/18 07:05 Pulse Rate 82 11/21/18 08:45 Respiratory Rate 18 11/21/18 08:45 Blood Pressure 130/75 11/21/18 08:45 O2 Sat by Pulse Oximetry (%) 96 11/20/18 21:00 Constitutional: Yes: Calm Cardiovascular: Yes: Regular Rate and Rhythm Respiratory: Yes: CTA Bilaterally Gastrointestinal: Yes: Soft Edema: Yes Edema: LLE: 1+, RLE: 1+ Neurological: Yes: Alert, Oriented Labs: CBC, BMP 11/21/18 07:15 11/21/18 07:15 INR, PTT INR 1.30 (0.83-1.09) H 11/16/18 09:50 Laboratory Tests 11/21/18 11/21/18 07:15 07:15 WBC 5.7 Hgb 8.9 L Plt Count 222 Potassium 3.1 L BUN 50 H Creatinine 3.5 H Phosphorus 2.4 L - ....Imaging EKG: Image Reviewed Assessment/Plan Assessment/Plan 1. Acute systolic HF exacerbation: - EF 40-45% - cont labetolol, not on ACEI/ARB for CKD - continue hydralzine and imdur. - edema improving with HD, weight down, volume management per renal 2. CKD - renal following - s/p kidney bx, resume ASA when possible - HD per renal -? need for IV Lasix? 3. CAD: - s/p FER most recently 09/2017, 10/2017 - resumed ASA on 11/21 4. HTN: - stable 5. anemia: -s/p egd with esophagitis
[2018-11-21] MEDS: FINASTERIDE 5 MG TABLET (FP) PO SCH (09:43)
[2018-11-21] MEDS: POLYETHYLENE GLYCOL 3350 119 GM BTL PO SCH (09:43)
[2018-11-21] MEDS: RANOLAZINE E.R. 500 MG TABLET (FP) PO SCH (09:43)
[2018-11-21] MEDS: ASPIRIN 81 MG CHEWABLE TABLETS PO SCH (09:43)
[2018-11-21] MEDS: PANTOPRAZOLE 40 MG TABLET (FP) PO SCH (09:43)
--- NOTE | 2018-11-21 11:16 | PN ---
Progress Note (short form) - Note Progress Note: Renal follow up for CKD Pt seen and examined during dialysis BP stable, catheter with good flow UF goal is 3.5L pt w/o any acute complaints no sob, cp, abd pain, N/V/D for discharge today Vital Signs Temperature 98.6 F 11/21/18 10:00 Pulse Rate 80 11/21/18 10:15 Respiratory Rate 18 11/21/18 10:15 Blood Pressure 155/80 11/21/18 10:15 O2 Sat by Pulse Oximetry (%) 95 11/21/18 09:00 Intake & Output 11/18/18 11/19/18 11/20/18 11/21/18 23:59 23:59 23:59 23:59 Intake Total 100 3200 100 Output Total 900 200 Balance 100 2300 -100 Weight 115.212 kg 116.392 kg 113.852 kg NAD RRR, no M/R CTA soft obese, NT/ND edema improved CBC, BMP 11/21/18 07:15 11/21/18 07:15 Current Medications Acetaminophen (Tylenol -) 650 mg PO Q6H PRN PRN Reason: PAIN LEVEL 1-5 Aspirin (Asa -) 81 mg PO DAILY [facility] Last Admin: 11/21/18 09:43 Dose: 81 mg Ergocalciferol (Drisdol -) 50,000 unit PO Mo@1000 [facility] Finasteride (Proscar -) 5 mg PO DAILY [facility] Last Admin: 11/21/18 09:43 Dose: 5 mg Furosemide (Lasix Injection -) 40 mg IVPUSH DAILY [facility] Last Admin: 11/20/18 09:26 Dose: 40 mg Guaifenesin (Diabetic Tussin Dm -) 5 ml PO Q6H PRN PRN Reason: COUGH Last Admin: 11/20/18 21:49 Dose: 5 ml Hydralazine HCl (Apresoline -) 50 mg PO TID [facility] Last Admin: 11/21/18 06:57 Dose: 50 mg Sodium Chloride (Normal Saline -) 250 mls @ 3,000 mls/hr IV PRN PRN PRN Reason: Hypotension during Dialysis Sodium Chloride (Normal Saline -) 250 mls @ 3,000 mls/hr IV PRN PRN PRN Reason: Hypotension during Dialysis Stop: 11/21/18 14:21 Sodium Chloride (Normal Saline -) 250 mls @ 3,000 mls/hr IV PRN PRN PRN Reason: Hypotension during Dialysis Stop: 11/21/18 14:22 Insulin Aspart (Novolog Vial Sliding Scale -) 1 vial SQ TIDAC [facility]; Protocol Last Admin: 11/21/18 11:14 Dose: Not Given Isosorbide Mononitrate (Imdur -) 30 mg PO DAILY [facility] Last Admin: 11/20/18 09:25 Dose: 30 mg Labetalol HCl (Normodyne -) 300 mg PO BID [facility] Last Admin: 11/20/18 21:43 Dose: 300 mg Nifedipine (Procardia Xl -) 30 mg PO DAILY [facility] Last Admin: 11/20/18 09:26 Dose: 30 mg Pantoprazole Sodium (Protonix -) 40 mg PO BID [facility] Last Admin: 11/21/18 09:43 Dose: 40 mg Polyethylene Glycol (Miralax (For Daily Use) -) 17 gm PO DAILY [facility] Last Admin: 11/21/18 09:43 Dose: 17 gm Ranolazine (Ranexa -) 500 mg PO BID [facility] Last Admin: 11/21/18 09:43 Dose: 500 mg Tamsulosin HCl (Flomax -) 0.8 mg PO DAILY@0830 [facility] Last Admin: 11/21/18 08:14 Dose: 0.8 mg 58 year old gentleman with hx of CKD with proteinuria, CHF, CAD s/p PCI, Hypertension, hyperlipidemia who preesnted from home with LE swelling and sob and admitted for CHF exacerbation with Cr of 2.4-2.6. 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 Prater should have some recovery of renal function once ATN resolves Thank you Mansoor Quiroz DO
[2018-11-21] MEDS: LABETALOL HCL 200 MG TABLET (FP) PO SCH (11:44)
[2018-11-21] MEDS: NIFEdipine E.R. 30 MG TABLET (FP) PO SCH (11:44)
[2018-11-21] MEDS: ISOSORBIDE MONONITRATE 30 MG TAB.SR.24H (FP) PO SCH (11:44)
[2018-11-21] MEDS: FUROSEMIDE 40 MG/4 ML INJECTABLE VIAL IVPUSH SCH (11:44)
[2018-11-21 14:23] VITALS: TEMP 98.5
--- NOTE | 2018-11-21 15:24 | DS ---
Physical Examination Vital Signs: Vital Signs Temperature 36.9 C 11/21/18 14:00 Pulse Rate 76 11/21/18 14:00 Respiratory Rate 20 11/21/18 14:00 Blood Pressure 176/80 H 11/21/18 14:00 O2 Sat by Pulse Oximetry (%) 95 11/21/18 09:00 Constitutional: Yes: No Distress, Calm, Obese Cardiovascular: Yes: Regular Rate and Rhythm. No: Gallop, Murmur, Rub Respiratory: Yes: Regular, CTA Bilaterally. No: Rales, Rhonchi, Wheezes Gastrointestinal: Yes: Normal Bowel Sounds, Soft. No: Distention, Tenderness Extremities: Yes: WNL Edema: No Labs: CBC, BMP 11/21/18 07:15 11/21/18 07:15 Discharge Summary Reason For Visit: CHF Current Active Problems Anemia (Acute) CAD (coronary artery disease) (Acute) CHF (congestive heart failure) (Acute) CKD (chronic kidney disease) stage 4, GFR 15-29 ml/min (Acute) Heart failure, diastolic, with acute decompensation (Acute) Pleural effusion, bilateral (Acute) Reflux esophagitis (Acute) Sepsis (Acute) UTI (urinary tract infection) (Acute) Hospital Course: (1) CHF (congestive heart failure) Code(s): I50.9 - HEART FAILURE, UNSPECIFIED Qualifiers: Heart failure type: systolic Heart failure chronicity: acute on chronic Qualified Code(s): I50.23 - Acute on chronic systolic (congestive) heart failure (2) GABI (acute kidney injury) Code(s): N17.9 - ACUTE KIDNEY FAILURE, UNSPECIFIED (3) CKD (chronic kidney disease) stage 4, GFR 15-29 ml/min Code(s): N18.4 - CHRONIC KIDNEY DISEASE, STAGE 4 (SEVERE) (4) Sepsis Code(s): A41.9 - SEPSIS, UNSPECIFIED ORGANISM (5) Insulin dependent diabetes mellitus Code(s): E11.9 - TYPE 2 DIABETES MELLITUS WITHOUT COMPLICATIONS; Z79.4 - MANAGER INTERNAL (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 OF INSULIN (6) UTI (urinary tract infection) Code(s): N39.0 - URINARY TRACT INFECTION, SITE NOT SPECIFIED Qualifiers: Urinary tract infection type: acute cystitis Hematuria presence: without hematuria Qualified Code(s): N30.00 - Acute cystitis without hematuria Mr Prater is a 58 year old male who came in with CHF exacerbation secondary to ESRD from diabetes. He was admitted to telemetry and seen by cardiology and nephrology. At first aggressive diuresis was attempted, however this was unsuccessful. He was placed on HD and improved. However his course was further complicated by sepsis with UTI, he was seen by ID and finished a full course of rocephin. He was being prepared for discharge but then had worsening anemia. GI was consulted and he underwent an EGD. He was found to have esophagitis and will be discharged on protonix. He will need to follow up with GI as he will need a repeat colonoscopy. Currently he is safe for discharge home with outpatient HD. 37 minutes spent in preparation of this discharge Condition: Guarded - Instructions Diet, Activity, Other Instructions: Ambulate with walker, up with assistance. Diabetic/renal diet. Referrals: Waldemar Eid MD [Primary Care Provider] - Corwin Neville DO [Staff Physician] - Juan Stewart MD [Staff Physician] - Luis Manuel Ponce DO [Staff Physician] - Mansoor Quiroz MD [Staff Physician] - Disposition: VNS/HOME HEALTH CARE - Home Medications Comprehensive Discharge Medication List: Ambulatory Orders Ergocalciferol (Vitamin D2) [Vitamin D2] 50,000 unit PO WEEKLY 09/25/18 Aspirin [Aspirin EC] 81 mg PO DAILY 10/11/18 Aspirin [ASA -] 81 mg PO DAILY #30 tab.chew 11/20/18 Atorvastatin Ca [Lipitor] 40 mg PO HS #30 tablet 11/20/18 Clopidogrel Bisulfate [Plavix -] 75 mg PO DAILY #30 tablet 11/20/18 Finasteride [Proscar -] 5 mg PO DAILY #30 tablet 11/20/18 Furosemide [Lasix -] 80 mg PO DAILY #60 tablet 11/20/18 Glipizide [Glucotrol] 5 mg PO BID #60 tablet 11/20/18 Isosorbide Mononitrate [Imdur -] 30 mg PO DAILY #30 tab.sr.24h 11/20/18 Labetalol HCl [Normodyne -] 300 mg PO BID #180 tablet 11/20/18 Nifedipine ER [Procardia XL -] 30 mg PO DAILY #30 tab.er.24 11/20/18 Pantoprazole Sodium [Protonix -] 40 mg PO BID #60 tablet.ec 11/20/18 Ranolazine [Ranexa -] 500 mg PO BID #60 tab 11/20/18 Tamsulosin HCl [Flomax] 0.4 mg PO DAILY #30 capsule 11/20/18 hydrALAZINE HCL [Apresoline -] 50 mg PO TID #90 tablet 11/20/18
[2018-11-21 20:09] VITALS: BP 158/94; PULSE 85
--- NOTE | 2018-11-27 17:29 | PATH ---
Surgical Pathology Report Patient Name: FILIPPO RICHARD [facility]. Rec. #: [id number] /Age/Gender: 1960 (Age: 58) / M Account: [id number] Location: 4 W TELEMETRY U Taken: 11/16/2018 Received: 11/16/2018 Reported: 11/27/2018 Physicians: Jordin Browne M.D. Specimen(s) Received RENAL BIOPSY Clinical History Acute and chronic kidney disease Final Diagnosis RENAL BIOPSY: 1. NODULAR DIABETIC GLOMERULOSCLEROSIS, MODERATE. 2. ACUTE TUBULAR INJURY, FOCAL. 3. TUBULAR ATROPHY AND INTERSTITIAL FIBROSIS, MODERATE TO SEVERE. 4. ARTERIO-AND ARTERIOLOSCLEROSIS, SEVERE. Case sent for consultation to Dr. Boaz Perea from [place], [place] ([id number]), the diagnosis above reflects his opinion. Comments The immunofluorescence findings provide evidence against glomerular disease of the immune complex type. The presence of foal acute tubular injury correlates with the recent history of GABI in the setting of CHF exacerbation, and may be partly reversible. However, the presence of significant tubulointerstitial scarring may preclude complete recovery. Electron microscopy is pending and may be contributory. Electronically Signed Oneyda Plasencia M.D. Microscopic Description Sections are stained with H&E, PAS, trichrome, and JMS. The sample shows 1 core of cortex and medulla. Twelve (12) glomeruli are identified, 2 of which are globally sclerotic. The remaining glomeruli are enlarged and display diffuse and global mesangial matrix expansion with nodule formation, without significant mesangial hypercellularity. Superimposed on these changes, 2 glomeruli display lesions of segmental sclerosis (NOS type), characterized by accumulation of acellular matrix material and hyaline and adhesions of the tuft to Wiggins's capsule. The glomerular basement membranes are thickened without duplication. Proximal tubules display focal degenerative changes characterized by luminal ectasia and attenuation of brush borders. The tubular basement membranes of both atrophic and non-atrophic tubules are thickened. Moderate to severe tubular atrophy and interstitial fibrosis involve 50% of the cortex sampled. Vessels display severe arterio- and arteriolosclerosis. Immunofluorescence (Procedure): Interpretation: GLOMERULI TUBULES INTERSTITIUM VESSELS IgG 8 gloms +/- TBM's+/- neg neg linear GCW linear (1 sclerotic) IgM 8 gloms neg neg neg arteriole Intima 1+ IgA 8 gloms neg casts 1+ neg neg C3 8 gloms +/- neg neg arteriole gran global mes gran focal intima 1+ C1 8 gloms 2+ neg neg arteriole Gran global mes gran focal intima 1+ FBGN 8 gloms neg neg neg neg ALB 8 gloms +/- TBM's +/- neg neg linear KAPPA 8 gloms +/- casts 1+ neg neg linear gran GCW LAMBDA 8 gloms neg casts 1+ neg neg linear GCW Positive and negative controls show appropriate reactivity. Gross Description Received in saline labeled "right renal biopsy," is a 1.4 cm in length x 0.1 cm in diameter arevalo, cylindrical portion of soft tissue, consistent with a renal biopsy. An intraoperative examination is performed. The specimen is divided, placed into 10% buffered formalin, Primitivo fixative and glutaraldehyde. The specimen is sent to [facility] for further studies. __ FAB/11/17/2018 kari/11/17/2018
== END 2018-11-21 19:45 | disposition home health service (06) | DRG 194 ==
LOC: JER 08:58 → JERBED 11:39 → J4W 10-27 11:32
PROVIDERS: ADMIT Internal Medicine; ATTEND Internal Medicine
PROC: 30233N1 Transfusion of Nonautologous Red Blood Cells into Peripheral Vein, Percutaneous Approach (ICD-10-PCS; 2018-11-07)
PROC: 05HM33Z Insertion of Infusion Device into Right Internal Jugular Vein, Percutaneous Approach (ICD-10-PCS; 2018-11-09)
PROC: 0TB03ZX Excision of Right Kidney, Percutaneous Approach, Diagnostic (ICD-10-PCS; 2018-11-16)
PROC: B513YZA Fluoroscopy of Right Jugular Veins using Other Contrast, Guidance (ICD-10-PCS; 2018-11-17)
PROC: 05HM33Z Insertion of Infusion Device into Right Internal Jugular Vein, Percutaneous Approach (ICD-10-PCS; principal; 2018-11-17 18:30)
PROC: 0DB68ZX Excision of Stomach, Via Natural or Artificial Opening Endoscopic, Diagnostic (ICD-10-PCS; 2018-11-18)
PROC: 5A1D70Z Performance of Urinary Filtration, Intermittent, Less than 6 Hours Per Day (ICD-10-PCS; 2018-11-21)
DX: I13.2 Hypertensive heart and chronic kidney disease with heart failure and with stage 5 chronic kidney disease, or end stage renal disease (principal); Z68.37 Body mass index [BMI] 37.0-37.9, adult; R80.9 Proteinuria, unspecified; I25.10 Atherosclerotic heart disease of native coronary artery without angina pectoris; E78.5 Hyperlipidemia, unspecified; E66.9 Obesity, unspecified; N39.0 Urinary tract infection, site not specified; I67.2 Cerebral atherosclerosis; K20.9 Esophagitis, unspecified; Z79.4 Long term (current) use of insulin; I50.21 Acute systolic (congestive) heart failure; N17.0 Acute kidney failure with tubular necrosis; E11.29 Type 2 diabetes mellitus with other diabetic kidney complication; N18.6 End stage renal disease; A41.89 Other specified sepsis; I27.20 Pulmonary hypertension, unspecified; E11.21 Type 2 diabetes mellitus with diabetic nephropathy; I47.1 Supraventricular tachycardia; E87.70 Fluid overload, unspecified; Z98.61 Coronary angioplasty status; D63.1 Anemia in chronic kidney disease; D62 Acute posthemorrhagic anemia; K29.00 Acute gastritis without bleeding; N05.5 Unspecified nephritic syndrome with diffuse mesangiocapillary glomerulonephritis; D64.9 Anemia, unspecified; D72.829 Elevated white blood cell count, unspecified; N40.0 Benign prostatic hyperplasia without lower urinary tract symptoms; J98.11 Atelectasis; B96.20 Unspecified Escherichia coli [E. coli] as the cause of diseases classified elsewhere; I42.9 Cardiomyopathy, unspecified; R33.9 Retention of urine, unspecified; E11.22 Type 2 diabetes mellitus with diabetic chronic kidney disease
CPT/HCPCS: 36415; 36430; 36511; 36600; 50200; 71045-TC-FY; 71250-TC; 74176-TC; 76000-TC-FY; 76098-TC-FY; 76775-TC; 76856-TC; 76942-TC; 80048; 80053; 81003; 82272; 82565; 82728; 82784; 82787; 82803; 82962; 83010; 83540; 83550; 83615; 83735; 83880; 83883; 84100; 84155; 84156; 84165; 84466; 84484; 84520; 84540; 85025; 85027; 85044; 85610; 86334; 86704; 86706; 86708; 86803; 86850; 86880; 86900; 86901; 86922; 87040; 87086; 87186; 87340; 87389; 87899; 88305-TC; 93005; 93010; 93971; 94010; 94640; 94760; 97116-GP; 97161-GP; 99285-25; J0885; J1644; J1756; J7030; P9038; P9047; P9058

== ENCOUNTER 2019-01-10 06:16 | Emergency (ER) | payer OTHER ==
[2019-01-10 06:51] VITALS: BMI 30.4
--- NOTE | 2019-01-10 08:19 | PDOC ---
History of Present Illness <Rita Carlton - Last Filed: 01/10/19 15:44> - General History Source: Patient Exam Limitations: No Limitations - History of Present Illness Initial Comments: 01/10/19 08:14 58 yo M pmh CHF, HTN, HLD, ESRD (HD //), and DM p/w 2 days of worsening nonbloody nonbilious vomiting. Pt unable to tolerate PO intake. Last episode this morning. Endorses mild dizziness on laying down, mild chills. Denies sick contacts, abd pain, diarrhea, constipation, SOB, and chest pain. Denies h/o abdominal surgery Pt also states he fell a few weeks ago and has persistent left shoulder and arm pain. Pt missed HD scheduled for 01/09/19. PMH: see HPI NKDA <Forrest Riley - Last Filed: 01/10/19 15:53> - General Chief Complaint: Nausea/Vomiting Stated Complaint: NAUSEA/VOMITING Time Seen by Provider: 01/10/19 07:48 Past History <Rita Carlton - Last Filed: 01/10/19 15:44> - Past Medical History Anemia: Yes Asthma: No Cancer: No Cardiac Disorders: Yes (STENT X2) CVA: Yes COPD: Yes CHF: No Dementia: No Diabetes: Yes GI Disorders: No Disorders: No HTN: Yes Hypercholesterolemia: Yes Liver Disease: No Seizures: No Thyroid Disease: No - Surgical History Cardiac Surgery: Yes (STENT X2) Orthopedic Surgery: Yes - Immunization History Immunization Up to Date: Yes - Suicide/Smoking/Psychosocial Hx Smoking History: Never smoked Have you smoked in the past 12 months: No Information on smoking cessation initiated: No Hx Alcohol Use: No Drug/Substance Use Hx: No Substance Use Type: None Hx Substance Use Treatment: No <Forrest Riley - Last Filed: 01/10/19 15:53> - Past Medical History Allergies/Adverse Reactions: Allergies Allergy/AdvReac Type Severity Reaction Status Date / Time No Known Allergies Allergy Verified 10/26/18 09:08 Home Medications: Ambulatory Orders Ergocalciferol (Vitamin D2) [Vitamin D2] 50,000 unit PO WEEKLY 09/25/18 Aspirin [ASA -] 81 mg PO DAILY #30 tab.chew 11/20/18 Atorvastatin Ca [Lipitor] 40 mg PO HS #30 tablet 11/20/18 Clopidogrel Bisulfate [Plavix -] 75 mg PO DAILY #30 tablet 11/20/18 Finasteride [Proscar -] 5 mg PO DAILY #30 tablet 11/20/18 Furosemide [Lasix -] 80 mg PO DAILY #60 tablet 11/20/18 Glipizide [Glucotrol] 5 mg PO BID #60 tablet 11/20/18 Isosorbide Mononitrate [Imdur -] 30 mg PO DAILY #30 tab.sr.24h 11/20/18 Labetalol HCl [Normodyne -] 300 mg PO BID #180 tablet 11/20/18 Nifedipine ER [Procardia XL -] 30 mg PO DAILY #30 tab.er.24 11/20/18 Pantoprazole Sodium [Protonix -] 40 mg PO BID #60 tablet.ec 11/20/18 Ranolazine [Ranexa -] 500 mg PO BID #60 tab 11/20/18 Tamsulosin HCl [Flomax] 0.4 mg PO DAILY #30 capsule 11/20/18 hydrALAZINE HCL [Apresoline -] 50 mg PO TID #90 tablet 11/20/18 Review of Systems - Review of Systems Able to Perform ROS?: Yes Is the patient limited Tuvaluan proficient: No Constitutional: Yes: Chills Respiratory: No: Shortness of Breath Cardiac (ROS): No: Chest Pain ABD/GI: Yes: Poor Appetite, Poor Fluid Intake, Vomiting. No: Constipated, Diarrhea Neurological: Yes: Dizziness (mild) <Forrest Riley - Last Filed: 01/10/19 15:53> *Physical Exam - Vital Signs Last Vital Signs Temp Pulse Resp BP Pulse Ox 97.8 F 85 18 167/90 96 01/10/19 07:20 01/10/19 07:20 01/10/19 07:20 01/10/19 07:20 01/10/19 07:20 <Rita Carlton - Last Filed: 01/10/19 15:44> - Vital Signs Last Vital Signs Temp Pulse Resp BP Pulse Ox 97.8 F 85 18 167/90 96 01/10/19 07:20 01/10/19 07:20 01/10/19 07:20 01/10/19 07:20 01/10/19 07:20 - Physical Exam Comments: 01/10/19 08:21 GEN: NAD HEENT: dry mucus membranes CV: S1/S2, RRR LUNG: CTAB GI: soft, nt, nd, +BS EXTREMETIES: 1+ pitting edema of b/l LE NEURO: 5/5 UE strength b/l, intact sensation of the shoulders and UE. 01/10/19 14:43 <Forrest Riley - Last Filed: 01/10/19 15:53> ED Treatment Course - LABORATORY CBC & Chemistry Diagram: 01/10/19 09:02 01/10/19 09:02 - ADDITIONAL ORDERS Additional order review: Laboratory Results 01/10/19 01/10/19 01/10/19 12:30 09:02 09:02 Sodium 143 Potassium 3.9 Chloride 105 Carbon Dioxide 33 H Anion Gap 4 L BUN 49.4 H Creatinine 3.3 H Est GFR (CKD-EPI)AfAm 22.76 Est GFR (CKD-EPI)NonAf 19.64 Random Glucose 182 H Calcium 8.7 Total Bilirubin 0.4 AST 33 ALT 66 H Alkaline Phosphatase 188 H Creatine Kinase 138 Troponin I < 0.02 0.02 B-Natriuretic Peptide 41141.6 H Total Protein 7.2 Albumin 2.9 L Lipase 80 01/10/19 09:02 RBC 3.82 L MCV 88.9 MCHC 32.2 RDW 14.8 MPV 7.4 L Neutrophils % 87.4 H D Lymphocytes % 6.7 L D Monocytes % 5.2 Eosinophils % 0.3 Basophils % 0.4 - Medications Given in the ED: ED Medications Discontinued Medications Generic Name Dose Route Start Last Admin Trade Name Freq PRN Reason Stop Dose Admin Famotidine/Sodium Chloride 20 mg in 50 mls @ 100 mls/hr 01/10/19 11:39 12:02 Pepcid 20 Mg Premixed Ivpb - IVPB 01/10/19 12:08 100 mls/hr ONCE ONE Administration Ondansetron HCl 4 mg 01/10/19 11:39 01/10/19 12:03 Zofran Injection IVPUSH 01/10/19 11:40 4 mg ONCE ONE Administration <Rita Carlton - Last Filed: 01/10/19 15:44> - LABORATORY CBC & Chemistry Diagram: 01/10/19 09:02 01/10/19 09:02 <Forrest Riley - Last Filed: 01/10/19 15:53> Medical Decision Making - Medical Decision Making 01/10/19 08:40 58 yo M pmh ESRD (HD ), DM, CHF, HTN, HLD presents with 2 days of nonbilious, nonbloody vomiting. Unable to tolerate PO. Denies sick contacts, chest pain, SOB, abdominal pain, diarrhea, and constipation. Missed HD yesterday 01/09/19. Also complains of left shoulder pain s/p fall a few weeks ago. DDx - electrolyte imbalance, ACS, obstruction, gastroparesis, gastritis Vomiting - EKG - CBC, CMP, BNP - CXR - IV Left shoulder s/p fall - left shoulder XR 01/10/19 09:47 CXR - Left Shoulder XR demonstrates no acute pathology Given physical exam and negative xray - will recommend PCP f/u for shoulder Elevated BNP - CT abd/pelv, noncon. - Lipase EKG QTc 503 - PepcidRomero with PO tolerance trial 01/10/19 13:26 Dispo: home if PO tolerant 01/10/19 14:[address] Cantu (Renal On-call) - does not recommend dialysis. 01/10/19 15:51 Patient tolerated PO -> discharge <Forrest Riley - Last Filed: 01/10/19 15:53> *DC/Admit/Observation/Transfer - Discharge Dispostion Decision to Admit order: No <Rita Carlton - Last Filed: 01/10/19 15:44> <Forrest Riley - Last Filed: 01/10/19 15:53> Diagnosis at time of Disposition: Vomiting Qualifiers: Vomiting type: unspecified Vomiting Intractability: non-intractable Nausea presence: with nausea Qualified Code(s): R11.2 - Nausea with vomiting, unspecified - Discharge Dispostion Disposition: HOME Condition at time of disposition: Stable - Referrals Referrals: Waldemar Eid MD [Primary Care Provider] - - Patient Instructions Printed Discharge Instructions: DI for Vomiting -- Adult - Post Discharge Activity
[2019-01-10 09:35] LABS: EOS % 0.3 % (0-4.5); MCHC 32.2 g/dl (32.0-35.9); RDW 14.8 % (11.9-15.9)
[2019-01-10 09:37] LABS: ALBUMIN 2.9 g/dl (3.4-5.0); BILIRUBIN,TOTAL 0.4 mg/dL (0.2-1); BLOOD UREA NITROGEN 49.4 mg/dL (7-18); CALCIUM 8.7 mg/dL (8.5-10.1); CREATININE 3.3 mg/dL (0.55-1.3); N-TERMINAL BNP 24647.6 pg/ml (5-125); POTASSIUM 3.9 mmol/L (3.5-5.1); TOT PROT 7.2 g/dl (6.4-8.2)
[2019-01-10 09:49] LABS: BASO % 0.4 % (0-2.0); LYMPH % 6.7 % (8-40); MCH 28.7 pg (25.7-33.7); MEAN CELL VOLUME 88.9 fl (80-96); MEAN PLT VOLUME 7.4 fl (7.5-11.1); MONO % 5.2 % (3.8-10.2); NEUT % 87.4 % (42.8-82.8); RBC 3.82 M/mm3 (4.00-5.60); WHITE BLOOD COUNT 8.8 K/mm3 (4.0-10.0)
[2019-01-10 10:03] LABS: PLATELET COUNT 313 K/MM3 (134-434)
--- NOTE | 2019-01-10 10:26 | PDOC ---
Attending Attestation - Resident Resident Name: Forrest Riley - ED Attending Attestation I have performed the following: I have examined & evaluated the patient, The case was reviewed & discussed with the resident, I agree w/resident's findings & plan, Exceptions are as noted
[2019-01-10] MEDS ORDERED: ONDANSETRON 4 MG/2 ML VIAL IVPUSH ONE (11:39)
[2019-01-10] MEDS ORDERED: FAMOTIDINE 20 MG/50 ML IVPB 20 MG/50 ML MG IVPB ONE ×2 (11:39→11:48)
[2019-01-10] MEDS ORDERED: ONDANSETRON 4 MG/2 ML VIAL ONE (11:48)
--- NOTE | 2019-01-10 13:05 | EKG ---
Test Reason : Blood Pressure : / mmHG Vent. Rate : 084 BPM Atrial Rate : 084 BPM P-R Int : 186 ms QRS Dur : 074 ms QT Int : 426 ms P-R-T Axes : 042 -05 034 degrees QTc Int : 503 ms NORMAL SINUS RHYTHM LEFT ATRIAL ENLARGEMENT SEPTAL INFARCT , AGE UNDETERMINED PROLONGED QT ABNORMAL ECG Confirmed by MD CELESTINE, HOMA ([id number]) on 01/10/2019 1:05:29 PM Referred By: Confirmed By:HOMA SPRAGUE MD
[2019-01-10 16:33] VITALS: BP 129/76; PULSE 82; TEMP 98
== END 2019-01-10 16:49 | disposition home or self-care (01) ==
LOC: JER 06:16
PROC: 3E033GC Introduction of Other Therapeutic Substance into Peripheral Vein, Percutaneous Approach (ICD-10-PCS; principal; 2019-01-10)
PROC: 3E033GC Introduction of Other Therapeutic Substance into Peripheral Vein, Percutaneous Approach (ICD-10-PCS; 2019-01-10)
DX: R11.2 Nausea with vomiting, unspecified (principal); E11.22 Type 2 diabetes mellitus with diabetic chronic kidney disease; I13.2 Hypertensive heart and chronic kidney disease with heart failure and with stage 5 chronic kidney disease, or end stage renal disease; I50.9 Heart failure, unspecified; N18.6 End stage renal disease
CPT/HCPCS: 36415; 71046-TC-FY; 73030-TC-LT-FY; 74176-TC; 80053; 82550; 83690; 83880; 84484; 85025; 93005; 93010; 96365; 96375; 99284-25

== ENCOUNTER 2019-01-23 13:40 | Observation (INO) | payer OTHER ==
--- NOTE | 2019-01-23 15:14 | PDOC ---
Documentation entered by Lux Barragan SCRIBE, acting as scribe for Shirley Rossi MD. Shirley Rossi MD: This documentation has been prepared by the bradlyibe, Lux Barragan SCRIBE, under my direction and personally reviewed by me in its entirety. I confirm that the documentation accurately reflects all work, treatment, procedures, and medical decision making performed by me. History of Present Illness - General Chief Complaint: Pain, Acute Stated Complaint: BACK PAIN History Source: Patient Exam Limitations: No Limitations - History of Present Illness Initial Comments: 01/23/19 14:42 The patient is a 58 year old male with a significant past medical history of CHF , COPD, CVA, ESRD(TuThSa), diabetes, hypertension, hyperlipidemia, and anemia who presents to the emergency department with left sided shoulder pain for a few weeks. The patient states that his left shoulder pain radiates down his left hand and feels like a stabbing pain that keeps him up at night. The patient states that the pain is worsened with certain positions and associated with neck pain. He states that he came into the emergency department regarding this pain recently by which he had a normal x-ray done. The patient endorses taking tylenol with no apparent relief but states that he sleeps in recliner at night which gives him some slight relief. The patient states that he has a dialysis appointment today at 2:30pm but states that he is going to miss his appointment secondary to his severe pain. He denies any fever, chills, nausea, vomiting, diarrhea, constipation or urinary symptoms. He denies any cough, chest pain, shortness of breath, headache, dizziness, numbness, weakness or tingling sensation. The patient denies any recent or prior trauma. He denies any other symptoms or complaints. 01/23/19 14:44 Past History - Past Medical History Allergies/Adverse Reactions: Allergies Allergy/AdvReac Type Severity Reaction Status Date / Time No Known Allergies Allergy Verified 01/23/19 13:55 Home Medications: Ambulatory Orders Ergocalciferol (Vitamin D2) [Vitamin D2] 50,000 unit PO WEEKLY 09/25/18 Aspirin [ASA -] 81 mg PO DAILY #30 tab.chew 11/20/18 Atorvastatin Ca [Lipitor] 40 mg PO HS #30 tablet 11/20/18 Clopidogrel Bisulfate [Plavix -] 75 mg PO DAILY #30 tablet 11/20/18 Finasteride [Proscar -] 5 mg PO DAILY #30 tablet 11/20/18 Furosemide [Lasix -] 80 mg PO DAILY #60 tablet 11/20/18 Glipizide [Glucotrol] 5 mg PO BID #60 tablet 11/20/18 Isosorbide Mononitrate [Imdur -] 30 mg PO DAILY #30 tab.sr.24h 11/20/18 Labetalol HCl [Normodyne -] 300 mg PO BID #180 tablet 11/20/18 Nifedipine ER [Procardia XL -] 30 mg PO DAILY #30 tab.er.24 11/20/18 Pantoprazole Sodium [Protonix -] 40 mg PO BID #60 tablet.ec 11/20/18 Ranolazine [Ranexa -] 500 mg PO BID #60 tab 11/20/18 Tamsulosin HCl [Flomax] 0.4 mg PO DAILY #30 capsule 11/20/18 hydrALAZINE HCL [Apresoline -] 50 mg PO TID #90 tablet 11/20/18 Anemia: Yes Asthma: No Cancer: No Cardiac Disorders: Yes (STENT X2) CVA: Yes COPD: Yes CHF: No Dementia: No Diabetes: Yes GI Disorders: No Disorders: Yes (renal dialysis) HTN: Yes Hypercholesterolemia: Yes Liver Disease: No Seizures: No Thyroid Disease: No - Surgical History Cardiac Surgery: Yes (STENT X2) Orthopedic Surgery: Yes - Immunization History Immunization Up to Date: Yes - Suicide/Smoking/Psychosocial Hx Smoking History: Unknown if ever smoked Have you smoked in the past 12 months: No Information on smoking cessation initiated: No Hx Alcohol Use: No Drug/Substance Use Hx: No Substance Use Type: None Hx Substance Use Treatment: No Review of Systems - Review of Systems Able to Perform ROS?: Yes Comments:: 01/23/19 14:42 GENERAL/CONSTITUTIONAL: No fever or chills. No weakness. HEAD, EYES, EARS, NOSE AND THROAT: No change in vision. No ear pain or discharge. No sore throat. CARDIOVASCULAR: No chest pain or shortness of breath. RESPIRATORY: No cough, wheezing, or hemoptysis. GASTROINTESTINAL: No nausea, vomiting, diarrhea or constipation. GENITOURINARY: No dysuria, frequency, or change in urination. MUSCULOSKELETAL:(+)left sided shoulder pain and neck pain. No joint or muscle swelling . No back pain. SKIN: No rash NEUROLOGIC: No headache, vertigo, loss of consciousness, or change in strength/ sensation. ENDOCRINE: No increased thirst. No abnormal weight change. HEMATOLOGIC/LYMPHATIC: No anemia, easy bleeding, or history of blood clots. ALLERGIC/IMMUNOLOGIC: No hives or skin allergy. *Physical Exam - Vital Signs Last Vital Signs Temp Pulse Resp BP Pulse Ox 98.0 F 80 16 160/90 100 01/23/19 13:49 01/23/19 13:49 01/23/19 13:49 01/23/19 13:49 01/23/19 13:49 - Physical Exam Comments: 01/23/19 16:29 awake alert lungs clear bilat heart rrr no mrg abd soft nt nd. nuero alert oriented x 3. 5/5 right upper and lower extremity strength. mild left upper ext 4+/5. states limited to pain. sensation intact throughout. skin right tunnled RAC dialysis cathetar cdi. 01/23/19 16:32 ED Treatment Course - LABORATORY CBC & Chemistry Diagram: 01/23/19 14:19 01/23/19 14:19 Medical Decision Making - Medical Decision Making 01/23/19 15:05 58 yo male with h/o esrd, htn dm hld t/r/sat dialysis, here today did not get dialysis due to pain left shoulder states he has pain in his neck radiates down left arm. has had for several weeks. no new weakness or numbness. has been taking tylenol for pain, no relief. was seen for same 3 weeks ago.has not had any imaging except shoulder xray. differential trapezial spasm. radiculopathy, shoulder injury.plan pain control, ct neck, cxr. pt will likely require admission as missed dialysis mild weakness of left arm on exam. may consider MRI on admission pending cT. 01/23/19 17:06 pt re-examined - feels a little improved following meds that were given in the ED. on exam strength is now 5/5. d/w admitting team and pt requires dialysis, may require MRI. arrange to pt to go to dialysis directly. ct cervical spine perform done results pending. *DC/Admit/Observation/Transfer Diagnosis at time of Disposition: ESRD (end stage renal disease), Neck pain, Weakness - Discharge Dispostion Decision to Admit order: Yes - Referrals Referrals: Waldemar Eid MD [Primary Care Provider] - - Patient Instructions - Post Discharge Activity
[2019-01-23] MEDS ORDERED: diazePAM 2 MG TABLET PO ONE (15:15)
[2019-01-23 15:30] LABS: BASO % 1.2 % (0-2.0); EOS % 4.5 % (0-4.5); HEMATOCRIT 36.5 % (35.4-49); HEMOGLOBIN 12.1 GM/dL (11.7-16.9); LYMPH % 11.6 % (8-40); MCH 29.1 pg (25.7-33.7); MCHC 33.1 g/dl (32.0-35.9); MEAN CELL VOLUME 87.9 fl (80-96); MEAN PLT VOLUME 6.9 fl (7.5-11.1); MONO % 7.9 % (3.8-10.2); NEUT % 74.8 % (42.8-82.8); PLATELET COUNT 342 K/MM3 (134-434); RBC 4.15 M/mm3 (4.00-5.60); RDW 14.3 % (11.9-15.9)
[2019-01-23] MEDS ORDERED: diazePAM 2 MG TABLET ONE (15:42)
[2019-01-23 15:56] LABS: BILIRUBIN,TOTAL 0.3 mg/dL (0.2-1); BLOOD UREA NITROGEN 55.7 mg/dL (7-18); CALCIUM 8.5 mg/dL (8.5-10.1); CREATININE 3.6 mg/dL (0.55-1.3); POTASSIUM 3.9 mmol/L (3.5-5.1); TOT PROT 7.6 g/dl (6.4-8.2)
--- NOTE | 2019-01-23 15:57 | CONSULT ---
Consult - text type - Consultation Consultation Note: Renal consult for ESRD on HD This is a 58 year old gentleman with history of ESRD on HD (was initally started as GABI now is ESRD), CHF, COPD, CVA, HLD, hypertension presents with complaints of shoulder pain and arm weakness. Pt states that he has should pain and tightness for several weeks with pain radiating down the arm. Denies any weakness. No difficutly speaking. No SOB, chest pain, abd pain, N/V/D. Pt missed his dialysis session today. Last dialysis was . PMhx: as above Allergies: NKDA Family Hx: NC Social Hx: No T/A/D ROS: as per HPI Home Medications Medication Instructions Recorded Ergocalciferol (Vitamin D2) 50,000 unit PO WEEKLY 09/25/18 [Vitamin D2] Aspirin [ASA -] 81 mg PO DAILY #30 tab.chew 11/20/18 Atorvastatin Ca [Lipitor] 40 mg PO HS #30 tablet 11/20/18 Clopidogrel Bisulfate [Plavix -] 75 mg PO DAILY #30 tablet 11/20/18 Finasteride [Proscar -] 5 mg PO DAILY #30 tablet 11/20/18 Furosemide [Lasix -] 80 mg PO DAILY #60 tablet 11/20/18 Glipizide [Glucotrol] 5 mg PO BID #60 tablet 11/20/18 Isosorbide Mononitrate [Imdur -] 30 mg PO DAILY #30 tab.sr.24h 11/20/18 Labetalol HCl [Normodyne -] 300 mg PO BID #180 tablet 11/20/18 Nifedipine ER [Procardia XL -] 30 mg PO DAILY #30 tab.er.24 11/20/18 Pantoprazole Sodium [Protonix -] 40 mg PO BID #60 tablet.ec 11/20/18 Ranolazine [Ranexa -] 500 mg PO BID #60 tab 11/20/18 Tamsulosin HCl [Flomax] 0.4 mg PO DAILY #30 capsule 11/20/18 hydrALAZINE HCL [Apresoline -] 50 mg PO TID #90 tablet 11/20/18 Vital Signs Temperature 98.0 F 01/23/19 13:49 Pulse Rate 80 01/23/19 13:49 Respiratory Rate 16 01/23/19 13:49 Blood Pressure 160/90 01/23/19 13:49 O2 Sat by Pulse Oximetry (%) 100 01/23/19 13:49 Intake & Output 01/20/19 01/21/19 01/22/19 01/23/19 23:59 23:59 23:59 23:59 Weight 110.677 kg NAD awake and alert neck supple right IJ tunneled catheter CTA soft NT/ND no LE edema CBC, BMP 01/23/19 14:19 01/23/19 14:19 58 year old gentleman with history of ESRD on HD (was initally started as GABI now is ESRD), CHF, COPD, CVA, HLD, hypertension presents with complaints of shoulder pain and arm weakness. #Should pain with arm weakness #ESRD on HD #Hyperetnsion #Hx of CVA #CHF will arrange for HD as inpatient today. No signs of volume overload Renal diet, 1.2L fluid restriction Work up of shoulder pain/radiculopathy as per ED/Primary team continue home antihypertenive meds Mansoor Quiroz DO
[2019-01-23] MEDS ORDERED: SODIUM CHLORIDE 250 ML IV PRN (16:07)
--- NOTE | 2019-01-23 17:36 | HP ---
CHIEF COMPLAINT: L shoulder pain x 3-4 weeks PCP: Dr. Keating HISTORY OF PRESENT ILLNESS: 58 y/o M with PMH systolic CHF (09/2018: ef 40-45%, mild to mod global hypokinesis LV), COPD, CVA (2018), ESRD (T, , Sat; R permacath), DM2, HTN, HLD , anemia, hx of esophagitis, who presents to the ED for L sided shoulder pain that has been occurring over the past 3-4 weeks. Per pt, 3-4 weeks ago, the patient fell. States that at the time, he was ambulating outside with his walker. He fell backwards, hitting his head and injuring his L shoulder. Was seen in the ED 2 weeks ago for this reason, L shoulder XR was found to be WNL. Pt is returning today for cont'd pain. States that the pain was so severe that he was unable to attend dialysis today. His last session was on . Describes pain as a sharp, stabbing sensation that radiates from his glenohumeral joint to his LUE. Was not alleviated by Tylenol or icy hot application. States that pain has been troubling him, thus he has been sleeping while sitting up in a chair at night. Denies other recent trauma, paresthesias, JONES, fever, chills, SOB, chest pain or pressure or changes in urinary or bowel function. Of note, pt with discitis-osteomyelitis, degenerative changes and extrusion and impingement of multiple nerve roots between L3-S1 levels on 2017 lumbar MRI imaging. At baseline, pt ambulates using a walker and lives at home w his . ER course was notable for: (1) to be dialyzed, nephro on board (2) C spine CT (3) valium 2mg (4) percocet x 1 Recent Travel: denies PAST MEDICAL HISTORY: as above PAST SURGICAL HISTORY: L big toe amputation, CAD s/p 2 FER stents (2018) Social History: used to work for [employer]. lives at home w . ambulates w walker Smoking: denies Alcohol: occasional Drugs: denies Family History: mother - DM, at age 92 Allergies No Known Allergies Allergy (Verified 10/10/18 21:09) HOME MEDICATIONS: Home Medications Medication Instructions Recorded Ergocalciferol (Vitamin D2) 50,000 unit PO WEEKLY 09/25/18 [Vitamin D2] Aspirin [ASA -] 81 mg PO DAILY #30 tab.chew 11/20/18 Atorvastatin Ca [Lipitor] 40 mg PO HS #30 tablet 11/20/18 Clopidogrel Bisulfate [Plavix -] 75 mg PO DAILY #30 tablet 11/20/18 Finasteride [Proscar -] 5 mg PO DAILY #30 tablet 11/20/18 Furosemide [Lasix -] 80 mg PO DAILY #60 tablet 11/20/18 Glipizide [Glucotrol] 5 mg PO BID #60 tablet 11/20/18 Isosorbide Mononitrate [Imdur -] 30 mg PO DAILY #30 tab.sr.24h 11/20/18 Labetalol HCl [Normodyne -] 300 mg PO BID #180 tablet 11/20/18 Nifedipine ER [Procardia XL -] 30 mg PO DAILY #30 tab.er.24 11/20/18 Pantoprazole Sodium [Protonix -] 40 mg PO BID #60 tablet.ec 11/20/18 Ranolazine [Ranexa -] 500 mg PO BID #60 tab 11/20/18 Tamsulosin HCl [Flomax] 0.4 mg PO DAILY #30 capsule 11/20/18 hydrALAZINE HCL [Apresoline -] 50 mg PO TID #90 tablet 11/20/18 meds have been verified with pharmacy picked up in January 2019 REVIEW OF SYSTEMS +neck pain +back pain PHYSICAL EXAMINATION Vital Signs - 24 hr 01/23/19 01/23/19 13:49 14:00 Temperature 98.0 F Pulse Rate 80 Respiratory 16 Rate Blood Pressure 160/90 O2 Sat by Pulse 100 99 Oximetry (%) GENERAL: Flat affect. in NAD HEAD: Normal with no signs of trauma. EYES: Pupils equal, round and reactive to light, extraocular movements intact, sclera anicteric, conjunctiva clear. EARS, NOSE, THROAT: Ears normal, nares patent, oropharynx clear without exudates. NECK: Normal range of motion, supple LUNGS: Breath sounds equal, clear to auscultation bilaterally. No wheezes, and no crackles. No accessory muscle use. HEART: Regular rate and rhythm, normal S1 and S2 without murmur, rub or gallop. ABDOMEN: Soft, nontender, not distended, normoactive bowel sounds MUSCULOSKELETAL: 4/5 motor strength LUE. 5/5 RLE. without TTP. no crepitus. sensation intact. LOWER EXTREMITIES: 2+ pt pulses, warm, well-perfused. No calf tenderness. No peripheral edema. NEUROLOGICAL: Cranial nerves II-XII intact. PSYCHIATRIC: Cooperative. Flat affect Laboratory Results - last 24 hr 01/23/19 01/23/19 14:19 14:19 WBC 9.0 RBC 4.15 Hgb 12.1 Hct 36.5 MCV 87.9 MCH 29.1 MCHC 33.1 RDW 14.3 Plt Count 342 MPV 6.9 L Absolute Neuts (auto) 6.7 Neutrophils % 74.8 Lymphocytes % 11.6 D Monocytes % 7.9 Eosinophils % 4.5 D Basophils % 1.2 Nucleated RBC % 0 Sodium 142 Potassium 3.9 Chloride 108 H Carbon Dioxide 26 Anion Gap 8 BUN 55.7 H Creatinine 3.6 H Est GFR (CKD-EPI)AfAm 20.49 Est GFR (CKD-EPI)NonAf 17.68 Random Glucose 51 L Calcium 8.5 Total Bilirubin 0.3 AST 37 ALT 72 H Alkaline Phosphatase 149 H Total Protein 7.6 Albumin 3.[address]: taken, pending report ASSESSMENT/PLAN: 58 y/o M with PMH systolic CHF (09/2018: ef 40-45%, mild to mod global hypokinesis LV), COPD, CVA (2017), ESRD (, , Fri; R permacath), DM2, HTN, HLD , anemia, hx of esophagitis, who presents to the ED for L sided shoulder pain that has been occurring over the past 3-4 weeks. #Degenerative disc dz of c-spine, r/o radiculopathy -with improved pain and ROM while in ED -f/u CT c-spine -recent L shoulder XR WNL 01/2019 -c/w flexeril PRN, lidocaine patch for pain control -physical therapy #ESRD on HD (, , Fri) - R permacath -missed HD today. last session -seen by Nephro, will be dialyzed today -1.2 L fluid restrict, renal diet -nephro: Dr. Quiroz #CAD s/p FER PCI x 2 -c/w imdur, asa, plavix, atorvastatin #HTN- uncontrolled -likely 2/2 pain -c/w nifedipine, labetalol, hydralazine, imdur. 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 will recheck a1c to determine if DM currently and whether can d/c med -for now ISS, BGM ACHS. #chronic systolic CHF -c/w lasix; w holding parameters given dialysis today -last ECHO 09/2018: ef 40-45%, mild to mod global hypokinesis LV #BPH -c/w tamsulosin, finasteride #F/E/N no IVF at this time continue to follow lytes renal diet #PPX on plavix #Dispo med-surg obs anticipate d/c in 24-48 h if seen by PT, pain improves, and no acute changes on imaging. Visit type - Emergency Visit Emergency Visit: Yes Care time: The patient presented to the Emergency Department on the above date and was hospitalized for further evaluation of their emergent condition. - New Patient This patient is new to me today: Yes Date on this admission: 01/23/19 - Critical Care Critical Care patient: No ATTENDING PHYSICIAN STATEMENT I saw and evaluated the patient. I reviewed the resident's note and discussed the case with the resident. I agree with the resident's findings and plan as documented. SUBJECTIVE: OBJECTIVE: ASSESSMENT AND PLAN:
--- NOTE | 2019-01-23 18:19 | PN ---
Teaching Attending Note Name of Resident: Gissel Kerr ATTENDING PHYSICIAN STATEMENT I saw and evaluated the patient. I reviewed the resident's note and discussed the case with the resident. I agree with the resident's findings and plan as documented. SUBJECTIVE: As per A/P. reports improvement in neck/L shoulder/arm pain. No headache/visual disturbance/limb numbness or weakness OBJECTIVE: Afebrile, Hemodynamically Stable. Last Vital Signs Temp Pulse Resp BP Pulse Ox 98.0 F 80 16 160/90 99 01/23/19 13:49 01/23/19 13:49 01/23/19 13:49 01/23/19 13:49 01/23/19 14:00 HEENT- Atraumatic, normocephalic. Heart - S1, S2, RRR Lungs -Clear to auscultation. R SC tunneled HD catheter. Abdomen - Soft, non-tender. Bowel Sounds normal Extremities- No edema, noc senior living tenderness. Neuro - AAO x 3. Flat affect. Tone/Power normal all 4 extremities. No neck stiffness or C-spine tenderness. No focal neurological deficits. Full ROM about L shoulder. Laboratory Results - last 24 hr 01/23/19 01/23/19 14:19 14:19 WBC 9.0 RBC 4.15 Hgb 12.1 Hct 36.5 MCV 87.9 MCH 29.1 MCHC 33.1 RDW 14.3 Plt Count 342 MPV 6.9 L Absolute Neuts (auto) 6.7 Neutrophils % 74.8 Lymphocytes % 11.6 D Monocytes % 7.9 Eosinophils % 4.5 D Basophils % 1.2 Nucleated RBC % 0 Sodium 142 Potassium 3.9 Chloride 108 H Carbon Dioxide 26 Anion Gap 8 BUN 55.7 H Creatinine 3.6 H Est GFR (CKD-EPI)AfAm 20.49 Est GFR (CKD-EPI)NonAf 17.68 Random Glucose 51 L Calcium 8.5 Total Bilirubin 0.3 AST 37 ALT 72 H Alkaline Phosphatase 149 H Total Protein 7.6 Albumin 3.0 L Current Medications Generic Name Dose Route Start Last Admin Trade Name Freq PRN Reason Stop Dose Admin Aspirin 81 mg 01/24/19 10:00 Asa - PO DAILY [facility] Atorvastatin Calcium 40 mg 01/23/19 22:00 Lipitor - PO HS SANGEETHA Clopidogrel Bisulfate 75 mg 01/24/19 10:00 Plavix - PO DAILY [facility] Finasteride 5 mg 01/24/19 10:00 Proscar - PO DAILY [facility] Furosemide 40 mg 01/23/19 22:00 Lasix - PO BID [facility] Hydralazine HCl 50 mg 01/23/19 22:00 Apresoline - PO TID SANGEETHA Hydrochlorothiazide 50 mg 01/24/19 10:00 Hctz - PO DAILY [facility] Sodium Chloride 250 mls @ 3,000 mls/hr 01/23/19 16:07 Normal Saline - IV 01/24/19 16:07 PRN PRN Hypotension during Dialysis Insulin Aspart 1 vial 01/23/19 22:00 Novolog Vial Sliding Scale - SQ ACHS SANGEETHA Protocol Isosorbide Mononitrate 30 mg 01/24/19 10:00 Imdur - PO DAILY [facility] Labetalol HCl 300 mg 01/23/19 22:00 Normodyne - PO BID [facility] Nifedipine 60 mg 01/24/19 10:00 Procardia Xl - PO DAILY [facility] Pantoprazole Sodium 40 mg 01/23/19 22:00 Protonix - PO BID [facility] Ranolazine 500 mg 01/24/19 10:00 Ranexa - PO BID [facility] Tamsulosin HCl 0.4 mg 01/24/19 10:00 Flomax - PO DAILY [facility] Home Medications Medication Instructions Recorded Ergocalciferol (Vitamin D2) 50,000 unit PO WEEKLY 09/25/18 [Vitamin D2] Aspirin [ASA -] 81 mg PO DAILY #30 tab.chew 11/20/18 Atorvastatin Ca [Lipitor] 40 mg PO HS #30 tablet 11/20/18 Clopidogrel Bisulfate [Plavix -] 75 mg PO DAILY #30 tablet 11/20/18 Finasteride [Proscar -] 5 mg PO DAILY #30 tablet 11/20/18 Glipizide [Glucotrol] 5 mg PO BID #60 tablet 11/20/18 Isosorbide Mononitrate [Imdur -] 30 mg PO DAILY #30 tab.sr.24h 11/20/18 Pantoprazole Sodium [Protonix -] 40 mg PO BID #60 tablet.ec 11/20/18 Ranolazine [Ranexa -] 500 mg PO BID #60 tab 11/20/18 Tamsulosin HCl [Flomax] 0.4 mg PO DAILY #30 capsule 11/20/18 hydrALAZINE HCL [Apresoline -] 50 mg PO TID #90 tablet 11/20/18 Furosemide [Lasix -] 40 mg PO BID 01/23/19 Hydrochlorothiazide 50 mg PO DAILY 01/23/19 Labetalol HCl [Normodyne -] 300 mg PO BID 01/23/19 Nifedipine ER [Procardia XL -] 60 mg PO DAILY 01/23/19 ASSESSMENT AND PLAN: 58 year old male with history of CAD s/p FER PCI x 2, HTN, HLD, DM 2, CKD 3, PAD s/p SFA PCI 2017, ESRD on HD (TTS), Chronic Systolic CHF (EF 40-45%), presents with several week history of neck and LUE shoulder pain. No history of recent trauma. No fever/neck stiffness/photophobia/rash. No focal weakness/ numbness. 1. 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 CT C-Spine pending. Neurologically intact/stable. Flexeril prn and Lidocaine patch. 2. ESRD on HD TTS, missed HD today due to ED visit Seen by Nephrology and HD arranged for today. No hyperkalemia/acidosis. No fluid overload. 1.2L fluid restriction, renal diet. 3. CAD s/p FER PCI x 2 - Continue Aspirin, Plavix, BB, Imdur, Statin, Ranolazine. 4. Hx CVA - Continue Aspirin, Plavix, Atorvastatin. 5. HTN - Continue Nifedipine, Labetolol, Lasix, Hydralazine, Imdur. HCTZ held for now - will discuss with Nephrology utility of taking both HCTZ and Lasix. 6. HLD - continue Atorvastatin 7. DM 2 - Hold Glipizide. Cover with sliding scale Novolog. 8. Chronic Systolic CHF - Stable, no evidence of decompensation. Continue Lasix and HD. 9. BPH - continue Tamsulosin, Finasteride. DVT Px - Will hold pending CT C-Spine in the event of possible NeuroSx intervention (unlikely)
[2019-01-23] MEDS ORDERED: LIDOCAINE 5% TOPICAL PATCH TP ONE ×2 (18:22→22:45)
[2019-01-23] MEDS ORDERED: LIDOCAINE PATCH REMOVAL MC SCH (22:00)
[2019-01-23] MEDS ORDERED: RANOLAZINE E.R. 500 MG TABLET (FP) PO SCH (22:00)
[2019-01-23] MEDS ORDERED: ATORVASTATIN CA 40 MG TABLET (FP) PO SCH (22:00)
[2019-01-23] MEDS: hydrALAZINE HCL 50 MG TABLET (FP) PO SCH (22:50)
[2019-01-23] MEDS: PANTOPRAZOLE 40 MG TABLET (FP) PO SCH (22:50)
[2019-01-23] MEDS: FUROSEMIDE 40 MG TABLET (FP) PO SCH (22:50)
[2019-01-23] MEDS: LABETALOL HCL 100 MG TABLET (FP) PO SCH (22:50)
[2019-01-23] MEDS: CYCLOBENZAPRINE HCL 5 MG TABLET PO PRN (22:50)
[2019-01-23] MEDS: INSULIN SLIDING SCALE (NOVOLOG) 1 VIAL SQ SCH (22:52)
[2019-01-23 23:48] VITALS: BMI 26.9
[2019-01-24] MEDS: hydrALAZINE HCL 50 MG TABLET (FP) PO SCH ×2 (06:05→13:39)
[2019-01-24] MEDS: INSULIN SLIDING SCALE (NOVOLOG) 1 VIAL SQ SCH ×3 (06:05→17:06)
[2019-01-24 07:00] VITALS: PULSE 79; TEMP 98
[2019-01-24] MEDS: CYCLOBENZAPRINE HCL 5 MG TABLET PO PRN (07:57)
[2019-01-24 08:42] LABS: BLOOD UREA NITROGEN 38.6 mg/dL (7-18); CALCIUM 8.5 mg/dL (8.5-10.1); CREATININE 2.8 mg/dL (0.55-1.3); POTASSIUM 3.6 mmol/L (3.5-5.1)
[2019-01-24] MEDS ORDERED: FINASTERIDE 5 MG TABLET (FP) PO SCH (10:00)
[2019-01-24] MEDS ORDERED: ISOSORBIDE MONONITRATE 30 MG TAB.SR.24H (FP) PO SCH (10:00)
[2019-01-24] MEDS ORDERED: CLOPIDOGREL BISULFATE 75 MG TABLET (FP) PO SCH (10:00)
[2019-01-24] MEDS ORDERED: TAMSULOSIN HCL 0.4 MG CAP PO SCH (10:00)
[2019-01-24] MEDS ORDERED: RANOLAZINE E.R. 500 MG TABLET (FP) PO SCH (10:00)
[2019-01-24] MEDS ORDERED: ASPIRIN 81 MG CHEWABLE TABLETS PO SCH (10:00)
[2019-01-24] MEDS ORDERED: NIFEdipine E.R. 30 MG TABLET (FP) PO SCH (10:00)
[2019-01-24] MEDS ORDERED: HYDROCHLOROTHIAZIDE 50 MG TABLET PO SCH (10:00)
[2019-01-24] MEDS: FUROSEMIDE 40 MG TABLET (FP) PO SCH (10:27)
[2019-01-24] MEDS: PANTOPRAZOLE 40 MG TABLET (FP) PO SCH (10:28)
[2019-01-24] MEDS: LABETALOL HCL 100 MG TABLET (FP) PO SCH (10:28)
--- NOTE | 2019-01-24 11:25 | DS ---
Physical Exam: SUBJECTIVE: Reports improvement in neck/L shoulder/arm pain. No headache/visual disturbance/limb numbness or weakness. No CP. No fever/chills. OBJECTIVE: Afebrile, Hemodynamically Stable. Last Vital Signs Temp Pulse Resp BP Pulse Ox 98 F 79 20 188/99 H 98 01/24/19 06:00 01/24/19 06:00 01/24/19 06:00 01/24/19 06:00 01/24/19 01:29 HEENT- Atraumatic, normocephalic. Neck supple. Heart - S1, S2, RRR Lungs -Clear to auscultation. R SC tunneled HD catheter. Abdomen - Soft, non-tender. Bowel Sounds normal Extremities- No edema, no calf tenderness. Neuro - AAO x 3. Flat affect. Tone/Power normal all 4 extremities. No neck stiffness or C-spine tenderness. No focal neurological deficits. Full ROM about L shoulder. Laboratory Results - last 24 hr 01/23/19 01/23/19 01/23/19 14:19 14:19 18:36 WBC 9.0 RBC 4.15 Hgb 12.1 Hct 36.5 MCV 87.9 MCH 29.1 MCHC 33.1 RDW 14.3 Plt Count 342 MPV 6.9 L Absolute Neuts (auto) 6.7 Neutrophils % 74.8 Lymphocytes % 11.6 D Monocytes % 7.9 Eosinophils % 4.5 D Basophils % 1.2 Nucleated RBC % 0 Sodium 142 Potassium 3.9 Chloride 108 H Carbon Dioxide 26 Anion Gap 8 BUN 55.7 H Creatinine 3.6 H Est GFR (CKD-EPI)AfAm 20.49 Est GFR (CKD-EPI)NonAf 17.68 POC Glucometer Random Glucose 51 L Hemoglobin A1c % 4.8 Calcium 8.5 Total Bilirubin 0.3 AST 37 ALT 72 H Alkaline Phosphatase 149 H Total Protein 7.6 Albumin 3.0 L 01/23/19 01/24/19 01/24/19 22:45 06:04 07:30 WBC RBC Hgb Hct MCV MCH MCHC RDW Plt Count MPV Absolute Neuts (auto) Neutrophils % Lymphocytes % Monocytes % Eosinophils % Basophils % Nucleated RBC % Sodium 142 Potassium 3.6 Chloride 106 Carbon Dioxide 30 Anion Gap 6 L BUN 38.6 H Creatinine 2.8 H Est GFR (CKD-EPI)AfAm 27.76 Est GFR (CKD-EPI)NonAf 23.95 POC Glucometer 106 84 Random Glucose 72 L Hemoglobin A1c % Calcium 8.5 Total Bilirubin AST ALT Alkaline Phosphatase Total Protein Albumin Discharge Medications Medication Instructions Recorded Ergocalciferol (Vitamin D2) 50,000 unit PO WEEKLY 09/25/18 [Vitamin D2] Aspirin [ASA -] 81 mg PO DAILY #30 tab.chew 11/20/18 Atorvastatin Ca [Lipitor] 40 mg PO HS #30 tablet 11/20/18 Clopidogrel Bisulfate [Plavix -] 75 mg PO DAILY #30 tablet 11/20/18 Finasteride [Proscar -] 5 mg PO DAILY #30 tablet 11/20/18 Glipizide [Glucotrol] 5 mg PO BID #60 tablet 11/20/18 Isosorbide Mononitrate [Imdur -] 30 mg PO DAILY #30 tab.sr.24h 11/20/18 Pantoprazole Sodium [Protonix -] 40 mg PO BID #60 tablet.ec 11/20/18 Ranolazine [Ranexa -] 500 mg PO BID #60 tab 11/20/18 Tamsulosin HCl [Flomax] 0.4 mg PO DAILY #30 capsule 11/20/18 hydrALAZINE HCL [Apresoline -] 50 mg PO TID #90 tablet 11/20/18 Furosemide [Lasix -] 40 mg PO BID 01/23/19 Hydrochlorothiazide 50 mg PO DAILY 01/23/19 Labetalol HCl [Normodyne -] 300 mg PO BID 01/23/19 Nifedipine ER [Procardia XL -] 60 mg PO DAILY 01/23/19 Cyclobenzaprine HCl 5 mg PO TID PRN 7 Days #21 tablet 01/24/19 Lidocaine Patch Removal [Lidoderm 1 each MC DAILY@2200 7 Days #7 each 01/24/19 Patch Removal] Date of Admission:01/23/19 Date of Discharge: 01/24/19 Minutes to complete discharge: 40 Discharge Summary Reason For Visit: NECK PAIN/ END STAGE RENAL DISEASE Current Active Problems ESRD (end stage renal disease) (Acute) Neck pain (Acute) Weakness (Acute) Hospital Course: 58 year old male with history of CAD s/p FER PCI x 2, HTN, HLD, DM 2, CKD 3, PAD s/p SFA PCI 2016, ESRD on HD (TTS), Chronic Systolic CHF (EF 40-45%), presents with several week history of neck and LUE shoulder pain. No history of recent trauma. No fever/neck stiffness/photophobia/rash. No focal weakness/ numbness. He received HD 01/23. CT C-spine was done which showed no acute findings. His neck/shoulder pain improved with Flexeril and Lidocaine patch. He is medically stable for discharge with PCP and Nephrology follow up. 1. 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 CT C-Spine: Moderate DJD, no disc herniation or spinal stenosis. Some improvement in symptoms with Flexeril prn and Lidocaine patch. Neurologically intact/stable. Medically optimized for discharge. 2. ESRD on HD TTS, missed HD yesterday due to ED visit Seen by Nephrology and HD performed 01/23. No hyperkalemia/acidosis. No fluid overload. 1.2L fluid restriction, renal diet. 3. CAD s/p FER PCI x 2 - Continue Aspirin, Plavix, BB, Imdur, Statin, Ranolazine. 4. Hx CVA - Continue Aspirin, Plavix, Atorvastatin. 5. HTN - Continue Nifedipine, Labetolol, Lasix, Hydralazine, Imdur. HCTZ also being taken - will leave to Nephrology re: utility of taking both HCTZ and Lasix. 6. HLD - continue Atorvastatin 7. DM 2 - Resume glipizide on discharge. 8. Chronic Systolic CHF - Stable, no evidence of decompensation. Continue Lasix and HD. 9. BPH - continue Tamsulosin, Finasteride. Medically Stable for discharge home with PCP and Nephrology follow up. - Instructions Diet, Activity, Other Instructions: You were admitted for investigation of neck/L shoulder pain and for Dialysis since you missed your HD appt 01/22. CT C-spine shows no acute medical issue with your neck. Your pain has improved with Flexeril and Lidocaine patch. You received HD yesterday and you are currently medically stable for discharge, with out-patient follow up by your primary care doctor and your Senior Biostatistician. Referrals: Mansoor Quiroz MD [Staff Physician] - 1 Week Waldemar Eid MD [Primary Care Provider] - - Home Medications Comprehensive Discharge Medication List: Ambulatory Orders Ergocalciferol (Vitamin D2) [Vitamin D2] 50,000 unit PO WEEKLY 09/25/18 Aspirin [ASA -] 81 mg PO DAILY #30 tab.chew 11/20/18 Atorvastatin Ca [Lipitor] 40 mg PO HS #30 tablet 11/20/18 Clopidogrel Bisulfate [Plavix -] 75 mg PO DAILY #30 tablet 11/20/18 Finasteride [Proscar -] 5 mg PO DAILY #30 tablet 11/20/18 Glipizide [Glucotrol] 5 mg PO BID #60 tablet 11/20/18 Isosorbide Mononitrate [Imdur -] 30 mg PO DAILY #30 tab.sr.24h 11/20/18 Pantoprazole Sodium [Protonix -] 40 mg PO BID #60 tablet.ec 11/20/18 Ranolazine [Ranexa -] 500 mg PO BID #60 tab 11/20/18 Tamsulosin HCl [Flomax] 0.4 mg PO DAILY #30 capsule 11/20/18 hydrALAZINE HCL [Apresoline -] 50 mg PO TID #90 tablet 11/20/18 Furosemide [Lasix -] 40 mg PO BID 01/23/19 Hydrochlorothiazide 50 mg PO DAILY 01/23/19 Labetalol HCl [Normodyne -] 300 mg PO BID 01/23/19 Nifedipine ER [Procardia XL -] 60 mg PO DAILY 01/23/19 Cyclobenzaprine HCl 5 mg PO TID PRN 7 Days #21 tablet 01/24/19 Lidocaine Patch Removal [Lidoderm Patch Removal] 1 each MC DAILY@2200 7 Days #7 each 01/24/19 Problem List - Problems (1) Neck pain Code(s): M54.2 - CERVICALGIA (2) ESRD (end stage renal disease) Code(s): N18.6 - END STAGE RENAL DISEASE This patient is new to me today: No Emergency Visit: Yes ED Registration Date: 01/23/19 Care time: The patient presented to the Emergency Department on the above date and was hospitalized for further evaluation of their emergent condition. Critical Care patient: No - Discharge Referral Referred to [facility] No
[2019-01-24] MEDS ORDERED: HYDROCHLOROTHIAZIDE 25 MG TABLET (FP) PO ONE (12:03)
[2019-01-24] MEDS ORDERED: ACETAMINOPHEN 325 MG TABLET (FP) PO ONE (12:06)
[2019-01-24 13:39] VITALS: BP 153/81
--- NOTE | 2019-01-24 17:44 | EKG ---
Test Reason : Blood Pressure : / mmHG Vent. Rate : 069 BPM Atrial Rate : 069 BPM P-R Int : 186 ms QRS Dur : 074 ms QT Int : 442 ms P-R-T Axes : 029 -20 034 degrees QTc Int : 473 ms SINUS RHYTHM WITH PREMATURE ATRIAL COMPLEXES WITH ABERRANT CONDUCTION POSSIBLE LEFT ATRIAL ENLARGEMENT INFERIOR INFARCT , AGE UNDETERMINED ABNORMAL ECG WHEN COMPARED WITH ECG OF 10-JAN-2019 06:22, ABERRANT CONDUCTION IS NOW PRESENT CRITERIA FOR SEPTAL INFARCT ARE NO LONGER PRESENT INFERIOR INFARCT IS NOW PRESENT NONSPECIFIC T WAVE ABNORMALITY NO LONGER EVIDENT IN INFERIOR LEADS Confirmed by SHIMA OCASIO MD ([id number]) on 01/24/2019 5:43:44 PM Referred By: Confirmed By:SHIMA OCASIO MD
== END 2019-01-24 19:04 | disposition home or self-care (01) ==
LOC: JER 13:40 → JERBED 16:33 → J6S 20:48
PROC: 3E013VG Introduction of Insulin into Subcutaneous Tissue, Percutaneous Approach (ICD-10-PCS; principal; 2019-01-23)
DX: E11.22 Type 2 diabetes mellitus with diabetic chronic kidney disease (principal); I13.2 Hypertensive heart and chronic kidney disease with heart failure and with stage 5 chronic kidney disease, or end stage renal disease; I50.22 Chronic systolic (congestive) heart failure; N18.6 End stage renal disease; Z99.2 Dependence on renal dialysis; Z79.84 Long term (current) use of oral hypoglycemic drugs; R53.1 Weakness; M54.2 Cervicalgia; E78.5 Hyperlipidemia, unspecified; J44.9 Chronic obstructive pulmonary disease, unspecified; D64.9 Anemia, unspecified; M50.30 Other cervical disc degeneration, unspecified cervical region; N40.0 Benign prostatic hyperplasia without lower urinary tract symptoms
CPT/HCPCS: 36415; 71046-TC-FY; 72125-TC; 80048; 80053; 82962; 83036; 85025; 86803; 87340; 93005; 93010; 96372; 99282-25; G0378

== ENCOUNTER 2019-02-25 18:54 | Emergency (ER) | payer OTHER ==
[2019-02-25 19:02] VITALS: BP 141/90; PULSE 80; TEMP 98.5; BMI 25.7
--- NOTE | 2019-02-25 19:19 | PDOC ---
History of Present Illness - General Chief Complaint: Revisit, Lab Variance Stated Complaint: SENT BY PCP Time Seen by Provider: 02/25/19 19:07 History Source: Patient Exam Limitations: No Limitations - History of Present Illness Initial Comments: 02/25/19 19:24 Patient requesting nasal swab for testing for VRE and MRSA. Patient is a chronic dialysis patient and leaving for [facility] for dialysis treatment and healing program but unable to be accepted without testing for the same. Patient understands results will not be completed until Friday or Friday but states due to his pending dialysis this testing today will be adequate. Patient denies any lesions, any fevers, or any other acute pathology Past History - Travel Traveled outside of the country in the last 30 days: No Close contact w/someone who was outside of country & ill: No - Past Medical History Allergies/Adverse Reactions: Allergies Allergy/AdvReac Type Severity Reaction Status Date / Time No Known Allergies Allergy Verified 02/25/19 18:58 Home Medications: Ambulatory Orders Ergocalciferol (Vitamin D2) [Vitamin D2] 50,000 unit PO WEEKLY 09/25/18 Aspirin [ASA -] 81 mg PO DAILY #30 tab.chew 11/20/18 Atorvastatin Ca [Lipitor] 40 mg PO HS #30 tablet 11/20/18 Clopidogrel Bisulfate [Plavix -] 75 mg PO DAILY #30 tablet 11/20/18 Finasteride [Proscar -] 5 mg PO DAILY #30 tablet 11/20/18 Glipizide [Glucotrol] 5 mg PO BID #60 tablet 11/20/18 Isosorbide Mononitrate [Imdur -] 30 mg PO DAILY #30 tab.sr.24h 11/20/18 Pantoprazole Sodium [Protonix -] 40 mg PO BID #60 tablet.ec 11/20/18 Ranolazine [Ranexa -] 500 mg PO BID #60 tab 11/20/18 Tamsulosin HCl [Flomax] 0.4 mg PO DAILY #30 capsule 11/20/18 hydrALAZINE HCL [Apresoline -] 50 mg PO TID #90 tablet 11/20/18 Furosemide [Lasix -] 40 mg PO BID 01/23/19 Hydrochlorothiazide 50 mg PO DAILY 01/23/19 Labetalol HCl [Normodyne -] 300 mg PO BID 01/23/19 Nifedipine ER [Procardia XL -] 60 mg PO DAILY 01/23/19 Cyclobenzaprine HCl 5 mg PO TID PRN 7 Days #21 tablet 01/24/19 Lidocaine Patch Removal [Lidoderm Patch Removal] 1 each MC DAILY@2200 7 Days #7 each 01/24/19 Anemia: Yes Asthma: No Cancer: No Cardiac Disorders: Yes (STENT X2) CVA: Yes COPD: Yes CHF: No Dementia: No Diabetes: Yes GI Disorders: No Disorders: Yes (renal dialysis) HTN: Yes Hypercholesterolemia: Yes Liver Disease: No Seizures: No Thyroid Disease: No - Surgical History Cardiac Surgery: Yes (STENT X2) Orthopedic Surgery: Yes - Immunization History Immunization Up to Date: Yes - Suicide/Smoking/Psychosocial Hx Smoking History: Never smoked Have you smoked in the past 12 months: No Information on smoking cessation initiated: No Hx Alcohol Use: No Drug/Substance Use Hx: No Substance Use Type: None Hx Substance Use Treatment: No Review of Systems - Review of Systems Able to Perform ROS?: Yes Is the patient limited Mohawk proficient: Yes Constitutional: Yes: See HPI. No: Symptoms Reported, Fever, Malaise HEENTM: Yes: See HPI. No: Symptoms Reported Respiratory: Yes: See HPI. No: Symptoms reported, Cough Integumentary: Yes: See HPI. No: Symptoms Reported All Other Systems: Reviewed and Negative *Physical Exam - Vital Signs Last Vital Signs Temp Pulse Resp BP Pulse Ox 98.5 F 80 17 141/90 98 02/25/19 18:59 02/25/19 18:59 02/25/19 18:59 02/25/19 18:59 02/25/19 18:59 - Physical Exam General Appearance: Yes: Nourished, Appropriately Dressed. No: Apparent Distress HEENT: positive: DANIEL, Normal ENT Inspection, TMs Normal, Pharynx Normal Neck: negative: Tender Extremity: positive: Normal Capillary Refill, Normal Inspection Integumentary: positive: Normal Color, Warm, Pale Neurologic: positive: outsole compressor II-XII NML intact, Fully Oriented, Alert, Normal Mood/ Affect, Normal Response, Motor Strength 5/5 Medical Decision Making - Medical Decision Making 02/25/19 19:26 Swab submitted for MRSA and VRE. Patient discharged understanding results will be completed in 2-3 days. *DC/Admit/Observation/Transfer Diagnosis at time of Disposition: Laboratory test - Discharge Dispostion Disposition: HOME Condition at time of disposition: Stable Decision to Admit order: No - Referrals - Patient Instructions Printed Discharge Instructions: Methicillin-Resistant Staph Infection, Vancomycin-Resistant Enterococci Infection Additional Instructions: Nasal swab completed for VRE and MRSA per request of patient for admitted to [facility] and dialysis treatment. Results will be completed/resulted by Friday from Microbiology Call [facility]- [phone] for results to be faxed. - Post Discharge Activity
== END 2019-02-25 19:25 | disposition home or self-care (01) ==
LOC: JER 18:54
DX: Z01.812 Encounter for preprocedural laboratory examination (principal); I10 Essential (primary) hypertension; E78.00 Pure hypercholesterolemia, unspecified; Z95.5 Presence of coronary angioplasty implant and graft; J44.9 Chronic obstructive pulmonary disease, unspecified; Z86.73 Personal history of transient ischemic attack (TIA), and cerebral infarction without residual deficits; Z99.2 Dependence on renal dialysis
CPT/HCPCS: 87070; 87077; 87081; 99281-25

== ENCOUNTER 2019-03-19 01:38 | Inpatient (IN) | payer OTHER ==
--- NOTE | 2019-03-19 01:59 | PDOC ---
History of Present Illness - General Chief Complaint: Lightheaded Stated Complaint: DIZZINESS Time Seen by Provider: 03/19/19 01:59 - History of Present Illness Initial Comments: 03/19/19 02:01 58 year old male with a significant past medical history of CAD with two stents, CHF, COPD, CVA, ESRD(TuThSa), diabetes, hypertension, hyperlipidemia, and anemia who presents acute dizziness and nausea with subsquent fall to ground without head traums or LOC. The patients reports that yesterday he felt nauseous and then in the afternoon he had 3 episodes of vomiting that all occurred when he was lying down. He reports that he had difficulty finding a comfortable place to lie tonight due mid and R sided abdominal pain. He then got up to drink soda for his stomache and was standing in the kitchen when he became acutely dizzy, nauseas and fell to the ground. Patient did not get dialyzed today, because he felt too nauseous to go He reports that he checked his bs in the evening and it was 155 He has had some dizziness before but those only occur after dialysis ROS GENERAL/CONSTITUTIONAL: No fever or chills. No weakness. HEAD, EYES, EARS, NOSE AND THROAT: No change in vision. No sore throat. CARDIOVASCULAR: No chest pain or shortness of breath RESPIRATORY: No cough, wheezing, or hemoptysis. GASTROINTESTINAL: No nausea, vomiting, diarrhea or constipation. GENITOURINARY: No dysuria, frequency, or change in urination. MUSCULOSKELETAL: No joint or muscle swelling or pain. No neck or back pain. SKIN: No rash NEUROLOGIC: No headache, + vertigo, No loss of consciousness, or change in strength/sensation. PE GENERAL: Awake, alert, and fully oriented, in no acute distress HEAD: No signs of trauma, normocephalic, atraumatic EYES: PERRLA, EOMI, sclera anicteric, conjunctiva clear ENT: Auricles normal inspection, hearing grossly normal, nares patent, oropharynx clear without exudates. Moist mucosa NECK: Normal ROM, supple, no lymphadenopathy, JVD, or masses LUNGS: No distress, speaks full sentences, clear to auscultation bilaterally HEART: Regular rate and rhythm, normal S1 and S2, no murmurs, rubs or gallops, peripheral pulses normal and equal bilaterally. ABDOMEN: Soft, nontender, normoactive bowel sounds. No guarding, no rebound. No masses EXTREMITIES : Normal inspection, Normal range of motion, no edema. No clubbing or cyanosis. NEUROLOGICAL: Cranial nerves II through XII grossly intact. Normal speech, normal gait, no focal sensorimotor deficits SKIN: Warm, Dry, normal turgor, no rashes or lesions noted GENITAL: uncircumcised male, vertical lie of testes, no inguinal lymphadenopathy , nontenderness to epididymal palpation, no erythema, lesions or ulcers MDM DDX including but not limited to: W/U: - TX: - Scores: ED Course: Patient stable for discharge. Informed of all lab and imaging results. Given follow up instructions and strict return precautions. Patient expressed understanding and agree to plan. Hair Cutter #: Zulma Shaikh PGY2 Emergency Medicine 03/19/19 02:41 Past History - Past Medical History Allergies/Adverse Reactions: Allergies Allergy/AdvReac Type Severity Reaction Status Date / Time No Known Allergies Allergy Verified 02/25/19 18:58 Home Medications: Ambulatory Orders Ergocalciferol (Vitamin D2) [Vitamin D2] 50,000 unit PO WEEKLY 09/25/18 Aspirin [ASA -] 81 mg PO DAILY #30 tab.chew 11/20/18 Atorvastatin Ca [Lipitor] 40 mg PO HS #30 tablet 11/20/18 Clopidogrel Bisulfate [Plavix -] 75 mg PO DAILY #30 tablet 11/20/18 Finasteride [Proscar -] 5 mg PO DAILY #30 tablet 11/20/18 Glipizide [Glucotrol] 5 mg PO BID #60 tablet 11/20/18 Isosorbide Mononitrate [Imdur -] 30 mg PO DAILY #30 tab.sr.24h 11/20/18 Pantoprazole Sodium [Protonix -] 40 mg PO BID #60 tablet.ec 11/20/18 Ranolazine [Ranexa -] 500 mg PO BID #60 tab 11/20/18 Tamsulosin HCl [Flomax] 0.4 mg PO DAILY #30 capsule 11/20/18 hydrALAZINE HCL [Apresoline -] 50 mg PO TID #90 tablet 11/20/18 Furosemide [Lasix -] 40 mg PO BID 01/23/19 Hydrochlorothiazide 50 mg PO DAILY 01/23/19 Labetalol HCl [Normodyne -] 300 mg PO BID 01/23/19 Nifedipine ER [Procardia XL -] 60 mg PO DAILY 01/23/19 Cyclobenzaprine HCl 5 mg PO TID PRN 7 Days #21 tablet 01/24/19 Lidocaine Patch Removal [Lidoderm Patch Removal] 1 each MC DAILY@2200 7 Days #7 each 01/24/19 Anemia: Yes Asthma: No Cancer: No Cardiac Disorders: Yes (STENT X2) CVA: Yes COPD: Yes CHF: No Dementia: No Diabetes: Yes GI Disorders: No Disorders: Yes (renal dialysis) HTN: Yes Hypercholesterolemia: Yes Liver Disease: No Seizures: No Thyroid Disease: No - Surgical History Cardiac Surgery: Yes (STENT X2) Orthopedic Surgery: Yes - Immunization History Immunization Up to Date: Yes - Suicide/Smoking/Psychosocial Hx Smoking History: Never smoked Have you smoked in the past 12 months: No Information on smoking cessation initiated: No Hx Alcohol Use: No Drug/Substance Use Hx: No Substance Use Type: None Hx Substance Use Treatment: No *Physical Exam - Vital Signs Last Vital Signs Temp Pulse Resp BP Pulse Ox 98.6 F 84 18 133/76 100 03/19/19 01:46 03/19/19 01:46 03/19/19 01:46 03/19/19 01:46 03/19/19 01:46 ED Treatment Course - LABORATORY CBC & Chemistry Diagram: 03/19/19 02:28 03/19/19 02:28 *DC/Admit/Observation/Transfer - Referrals Referrals: Waldemar Eid MD [Primary Care Provider] - - Patient Instructions - Post Discharge Activity
[2019-03-19] MEDS ORDERED: MECLIZINE HCL 12.5 MG TABLET PO ONE (02:25)
[2019-03-19] MEDS ORDERED: ONDANSETRON 4 MG/2 ML VIAL IVPUSH ONE (02:25)
[2019-03-19] MEDS ORDERED: ONDANSETRON 4 MG/2 ML VIAL ONE (02:36)
[2019-03-19] MEDS ORDERED: MAG HYDROX/AL HYDROX/SIMETH -MYLANTA- ORAL SUSPENSION PO ONE (02:40)
[2019-03-19] MEDS ORDERED: FAMOTIDINE 20 MG/50 ML IVPB 20 MG/50 ML MG IVPB ONE ×2 (02:40→03:18)
[2019-03-19 03:06] LABS: ALBUMIN 3.4 g/dl (3.4-5.0); BILIRUBIN,TOTAL 0.4 mg/dL (0.2-1); BLOOD UREA NITROGEN 88.1 mg/dL (7-18); CALCIUM 8.4 mg/dL (8.5-10.1); POTASSIUM 3.8 mmol/L (3.5-5.1)
[2019-03-19] MEDS ORDERED: MAG HYDROX/AL HYDROX/SIMETH 30 ML UNIT-DOSE CUP ONE (03:18)
[2019-03-19 03:36] LABS: EOS % 2.9 % (0-4.5); HEMATOCRIT 36.2 % (35.4-49); HEMOGLOBIN 11.9 GM/dL (11.7-16.9); LYMPH % 17.5 % (8-40); MCH 28.9 pg (25.7-33.7); MCHC 32.8 g/dl (32.0-35.9); MEAN PLT VOLUME 7.5 fl (7.5-11.1); MONO % 10.4 % (3.8-10.2); NEUT % 68.2 % (42.8-82.8); PLATELET COUNT 385 K/MM3 (134-434); RBC 4.12 M/mm3 (4.00-5.60); RDW 13.5 % (11.9-15.9); WHITE BLOOD COUNT 7.9 K/mm3 (4.0-10.0)
[2019-03-19 05:02] LABS: N-TERMINAL BNP 1933.4 pg/ml (5-125)
--- NOTE | 2019-03-19 05:23 | PDOC ---
Attending Attestation - Resident Resident Name: HawaZulma - ED Attending Attestation I have performed the following: I have examined & evaluated the patient, The case was reviewed & discussed with the resident, I agree w/resident's findings & plan, Exceptions are as noted - HPI HPI: 03/19/19 05:18 58 M with h/o CAD/stents, CHF, COPD, CVA, ESRD on HD (t/t/s), DM, HTN, HLD, anemia, presenting with intermittent dizziness and a fall. Pt states that for 2 weeks, he has been feeling lightheaded, as if he is going to faint. Denies room- spinning sensation. Pt states that it is typically triggered by HD. However, he has been persistently lightheaded the past 2 days despite missing his last HD. Pt states that today while opening the refrigerator, he felt so lightheaded that his legs gave out from under him. Pt fell to the ground but denies headstrike/LOC. States that he was conscious for the whole episode. Pt currently still endorses lightheadedness. Denies CP/SOB. Denies leg swelling. Denies F/C. - Physicial Exam PE: 03/19/19 05:23 "GENERAL: Awake, alert, and fully oriented, in no acute distress. HEAD: No signs of trauma EYES: PERRLA, EOMI, sclera anicteric, conjunctiva clear ENT: Auricles normal inspection, hearing grossly normal, nares patent, oropharynx clear without exudates. Moist mucosa NECK: Nontender, no stepoffs, Normal ROM, supple, no lymphadenopathy, JVD, or masses LUNGS: Breath sounds equal, clear to auscultation bilaterally. No wheezes, and no crackles HEART: Regular rate and rhythm, normal S1 and S2, no murmurs, rubs or gallops ABDOMEN: Soft, nontender, normoactive bowel sounds. No guarding, no rebound. No masses EXTREMITIES: Normal range of motion, no edema. No clubbing or cyanosis. No cords, erythema, or tenderness NEUROLOGICAL: Cranial nerves II through XII intact. 5/5 strength and sensation in all extremities, Normal speech, normal gait, normal cerebellar function SKIN: Warm, Dry, normal turgor, no rashes or lesions noted. - Medical Decision Making 03/19/19 05:24 58 M with lightheadedness and fall today. Will r/o ACS with trop. EKG unremarkable. Also consider infectious process. - Labs - CXR, UA - CT head
--- NOTE | 2019-03-19 07:47 | HP ---
CHIEF COMPLAINT: Nausea, Vomiting, Dizziness PCP: Dr. Keating HISTORY OF PRESENT ILLNESS: 58 y/o M with PMHx of ESRD (on HD TuThSa via R Permacath, Last HD on Friday, see's Dr. Quiroz), CAD (s/p 2 FER in 2018 on ASA/Clopidogrel), CHF (Last EF 40-45%), CVA (2018), DMII, HTN, HLD presents with Dizziness and Vomiting. Patient was in his usual state of health until afternoon where he experienced 2 episodes of Brown, NBNB vommiting accompanied by cramping mid- abdomen pain; Both episodes were quantified to be 3 cupfulls each. He tried peptobismol with minimal relief. Later in the evening around 2099, patient was able to tolerate a bowl of cereal and a can of coke. Early this morning aroun 99, patient got up from a recliner while watching tv, walked to the fridge and had sudden onset dizziness with subsequent fall backwards landing on his back. Denies any associated head trauma, LOC, convulsions, loss of bowel/ bladder control, or tongue biting. He was able to get up on his feet and ambulate to a chair prompting him to alert EMS. His BG at this time was 154. This is the first time this has happened to him. He feels this may be related to a hamburg he consumed from a new store on Friday evening. During my interview after receiving a GI cocktail, patient abdominal pain resolved and he is no longer experiencing dizziness. Denies any recent medication changes, travel or sick contacts. Denies any associated fevers, chills, chest pain, SOB, diarrhea, constipation, dysuria, hematuria, hematochezia. 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 [employer] Ambulation: Walker Residence: at home with Family History: Mother with DM Allergies No Known Allergies Allergy (Verified 02/25/19 18:58) HOME MEDICATIONS: Home Medications Medication Instructions Recorded Ergocalciferol (Vitamin D2) 50,000 unit PO WEEKLY 09/25/18 [Vitamin D2] Aspirin [ASA -] 81 mg PO DAILY #30 tab.chew 11/20/18 Atorvastatin Ca [Lipitor] 40 mg PO HS #30 tablet 11/20/18 Clopidogrel Bisulfate [Plavix -] 75 mg PO DAILY #30 tablet 11/20/18 Finasteride [Proscar -] 5 mg PO DAILY #30 tablet 11/20/18 Glipizide [Glucotrol] 5 mg PO BID #60 tablet 11/20/18 Isosorbide Mononitrate [Imdur -] 30 mg PO DAILY #30 tab.sr.24h 11/20/18 Pantoprazole Sodium [Protonix -] 40 mg PO BID #60 tablet.ec 11/20/18 Ranolazine [Ranexa -] 500 mg PO BID #60 tab 11/20/18 Tamsulosin HCl [Flomax] 0.4 mg PO DAILY #30 capsule 11/20/18 hydrALAZINE HCL [Apresoline -] 50 mg PO TID #90 tablet 11/20/18 Furosemide [Lasix -] 40 mg PO BID 01/23/19 Hydrochlorothiazide 50 mg PO DAILY 01/23/19 Labetalol HCl [Normodyne -] 300 mg PO BID 01/23/19 Nifedipine ER [Procardia XL -] 60 mg PO DAILY 01/23/19 Cyclobenzaprine HCl 5 mg PO TID PRN 7 Days #21 tablet 01/24/19 Lidocaine Patch Removal [Lidoderm 1 each MC DAILY@2200 7 Days #7 each 01/24/19 Patch Removal] REVIEW OF SYSTEMS As per HPI PHYSICAL EXAMINATION Vital Signs - 24 hr 03/19/19 03/19/19 01:46 06:59 Temperature 98.6 F 98.5 F Pulse Rate 84 Pulse Rate [ 78 Radial] Respiratory 18 16 Rate Blood Pressure 133/76 Blood Pressure 149/85 [Left Arm] O2 Sat by Pulse 100 98 Oximetry (%) GENERAL: A&Ox3, NAD HEAD: NCAT EYES: PERRL, EOMI ENT: Moist mucous membranes. NECK: Supple, No JVD LUNGS: CTAB, No wheezes, no crackles HEART: Regular rate and rhythm, normal S1 and S2 without murmur ABDOMEN: Soft, nontender, not distended, + bowel sounds, no guarding, no rebound MUSCULOSKELETAL: FROM, No midline Cervical/Thoracic/Lumbar tenderness to palpation, No bony deformities, No CVA tenderness. EXTREMITIES: 2+ pulses, No peripheral edema. NEUROLOGICAL: Cranial nerves II-XII intact. Gross sensation intact throughout. 5 /5 Muscle strength throughout. PSYCHIATRIC: Flat affect SKIN: Warm, dry Laboratory Results - last 24 hr 03/19/19 03/19/19 03/19/19 02:28 02:28 02:28 WBC 7.9 RBC 4.12 Hgb 11.9 Hct 36.2 MCV 88.0 MCH 28.9 MCHC 32.8 RDW 13.5 Plt Count 385 MPV 7.5 Absolute Neuts (auto) 5.4 Neutrophils % 68.2 Lymphocytes % 17.5 D Monocytes % 10.4 H Eosinophils % 2.9 Basophils % 1.0 Nucleated RBC % 0 Sodium 140 Potassium 3.8 Chloride 102 Carbon Dioxide 27 Anion Gap 10 BUN 88.1 H Creatinine 5.0 H Est GFR (CKD-EPI)AfAm 13.77 Est GFR (CKD-EPI)NonAf 11.88 Random Glucose 198 H Calcium 8.4 L Total Bilirubin 0.4 AST 27 ALT 84 H Alkaline Phosphatase 117 Troponin I < 0.02 B-Natriuretic Peptide 1933.4 H Total Protein 8.0 Albumin 3.4 Active Medications Acetaminophen (Tylenol -) 650 mg PO Q4H PRN PRN Reason: PAIN OR FEVER Heparin Sodium (Porcine) (Heparin -) 5,000 unit SQ TID SANGEETHA Lactated Ringer's (Lactated Ringers Solution) 1,000 mls @ 50 mls/hr IV ASDIR SANGEETHA Famotidine/Sodium Chloride (Pepcid 20 Mg Premixed Ivpb -) 20 mg in 50 mls @ 100 mls/hr IVPB Q48H SANGEETHA Insulin Aspart (Novolog Vial Sliding Scale -) 1 vial SQ ACHS SANGEETHA; Protocol ASSESSMENT/PLAN: 58 y/o M with PMHx of ESRD (on HD TuThSa via R Permacath, Last HD on Friday, see's Dr. Quiroz), CAD (s/p 2 FER in 2018 on ASA/Clopidogrel), CHF (Last EF 40-45%), CVA (2018), DMII, HTN, HLD presents with Dizziness and Vomiting. #Presyncope -Dizziness with subsequent fall, in the setting of recent nausea/vomiting -Head CT Non Con without acute pathology -EKG NSR, Possible LAE, LVH, VR 80, QTc 485 -Check Mag, Echo, Orthostatic VS -IV Hydration -Tele -Hold home dose diuretic #Gastritis -Nausea + 2 episodes of NBNB Vomiting after eating a new hamburger, No associated Diarrhea -Improved with GI Cocktail -Continue Mylanta PRN, Pepcid Q48H (Renally dosed) #ESRD on HD ([facility]) -Last session on Friday; Missed due to nausea/vomtiing -Nephro (Dr. Quiroz) consulted -Renally dose all meds, CrCL calculated 18 -Avoid nephrotoxic meds (NSAIDs) #Prolonged QTc -Currently 482; Previously 473 -Check Mag -Avoid QT prolonging meds (ie Zofran) -Serial EKGs #CAD (s/p 2 FER -Continue ASA, Clopidogrel, Statin, Imdur #CHF (Last EF 09/22 40-45%) -Currently not in exacerbation -Echo Pending -Hold home dose diuresis #CVA (2018) -Continue ASA, Clopidogrel, Statin #DMII -Hold oral hypoglycemics -ISS BGMs ACHS #HTN -Currently normotensive, Will hold home dose diuresis -Continue home dose Nifedipine, Labetalol, hydralazine #HLD -Statin #FEN -LR @ 50 -Replete lytes PRN -Diabetic diet #PPx -DVT: Heparin SQ Dispo: Tele-Obs Visit type - Emergency Visit Emergency Visit: Yes ED Registration Date: 03/19/19 Care time: The patient presented to the Emergency Department on the above date and was hospitalized for further evaluation of their emergent condition. - New Patient This patient is new to me today: Yes Date on this admission: 03/20/19 - Critical Care Critical Care patient: No ATTENDING PHYSICIAN STATEMENT I saw and evaluated the patient. I reviewed the resident's note and discussed the case with the resident. I agree with the resident's findings and plan as documented. SUBJECTIVE: OBJECTIVE: ASSESSMENT AND PLAN:
[2019-03-19] MEDS ORDERED: ACETAMINOPHEN 325 MG TABLET (FP) PO PRN (08:00)
[2019-03-19] MEDS ORDERED: LACTATED RINGERS SOLUTION 1,000 ML IV SCH (08:00)
[2019-03-19 08:19] LABS: MAGNESIUM 2.5 mg/dL (1.8-2.4)
[2019-03-19 08:29] LABS: MAGNESIUM 2.4 mg/dL (1.8-2.4)
[2019-03-19] MEDS: FAMOTIDINE 20 MG/50 ML IVPB 20 MG/50 ML MG IVPB SCH (08:36)
--- NOTE | 2019-03-19 08:40 | PN ---
Teaching Attending Note Name of Resident: Swati Amaya ATTENDING PHYSICIAN STATEMENT I saw and evaluated the patient. I reviewed the resident's note and discussed the case with the resident. I agree with the resident's findings and plan as documented. SUBJECTIVE: This is a 58 year old man with a history of ESRD, CAD with stents, chronic systolic heart failure, HTN, hyperlipidemia, type 2 DM, CVA who comes to the ED complaining of mid abdominal pain and vomiting that started yesterday. This morning around 1am, he got up from a recliner and suddenly became dizzy. He fell backwards and landed on his back. He denies fever, chills , hematemesis, melena, rectal bleeding, head trauma, loss of consciousness, incontinence, tongue biting. He reports eating a hamburger from a new place 2 days before the onset of symptoms. OBJECTIVE: Vital Signs Period Temp Pulse Resp BP Sys/Lopez Pulse Ox Last 24 Hr 98.5 F-98.6 F 78-84 16-18 133-149/76-85 98-100 HEART: S1S2, RRR LUNGS: Clear ABDOMEN: Soft, non-tender, non-distended, normal BS EXTREMITIES: No edema Laboratory Tests 03/19/19 03/19/19 03/19/19 02:28 02:28 02:28 WBC 7.9 RBC 4.12 Hgb 11.9 Hct 36.2 MCV 88.0 MCH 28.9 MCHC 32.8 RDW 13.5 Plt Count 385 MPV 7.5 Absolute Neuts (auto) 5.4 Neutrophils % 68.2 Lymphocytes % 17.5 D Monocytes % 10.4 H Eosinophils % 2.9 Basophils % 1.0 Nucleated RBC % 0 Sodium 140 Potassium 3.8 Chloride 102 Carbon Dioxide 27 Anion Gap 10 BUN 88.1 H Creatinine 5.0 H Est GFR (CKD-EPI)AfAm 13.77 Est GFR (CKD-EPI)NonAf 11.88 Random Glucose 198 H Calcium 8.4 L Magnesium 2.5 H 2.4 Total Bilirubin 0.4 AST 27 ALT 84 H Alkaline Phosphatase 117 Troponin I < 0.02 B-Natriuretic Peptide 1933.4 H Total Protein 8.0 Albumin 3.4 Home Medications Medication Instructions Recorded Ergocalciferol (Vitamin D2) 50,000 unit PO WEEKLY 09/25/18 [Vitamin D2] Aspirin [ASA -] 81 mg PO DAILY #30 tab.chew 11/20/18 Atorvastatin Ca [Lipitor] 40 mg PO HS #30 tablet 11/20/18 Clopidogrel Bisulfate [Plavix -] 75 mg PO DAILY #30 tablet 11/20/18 Finasteride [Proscar -] 5 mg PO DAILY #30 tablet 11/20/18 Glipizide [Glucotrol] 5 mg PO BID #60 tablet 11/20/18 Isosorbide Mononitrate [Imdur -] 30 mg PO DAILY #30 tab.sr.24h 11/20/18 Pantoprazole Sodium [Protonix -] 40 mg PO BID #60 tablet.ec 11/20/18 Ranolazine [Ranexa -] 500 mg PO BID #60 tab 11/20/18 Tamsulosin HCl [Flomax] 0.4 mg PO DAILY #30 capsule 11/20/18 hydrALAZINE HCL [Apresoline -] 50 mg PO TID #90 tablet 11/20/18 Furosemide [Lasix -] 40 mg PO BID 01/23/19 Hydrochlorothiazide 50 mg PO DAILY 01/23/19 Labetalol HCl [Normodyne -] 300 mg PO BID 01/23/19 Nifedipine ER [Procardia XL -] 60 mg PO DAILY 01/23/19 Cyclobenzaprine HCl 5 mg PO TID PRN 7 Days #21 tablet 01/24/19 Lidocaine Patch Removal [Lidoderm 1 each MC DAILY@2200 7 Days #7 each 01/24/19 Patch Removal] ASSESSMENT AND PLAN: This is a 58 year old man with a history of ESRD, CAD with stents, chronic systolic heart failure, HTN, hyperlipidemia, type 2 DM, CVA who presented to the ED with dizziness, mid abdominal pain, and vomiting. 1. Dizziness with fall - No evidence of syncope, seizure - Possibly secondary to hypovolemia from vomiting - Monitor on telemetry - Check orthostatics - Gentle IV hydration and hold Lasix, HCTZ 2. Abdominal pain with nausea/vomiting - Possibly secondary to gastritis, gastroenteritis - Start Pepcid - Diet as tolerated 3. ESRD - Missed HD yesterday - Nephrology consult 4. CAD - Continue aspirin, Plavix, Lipitor, Imdur, Ranexa 5. HTN - Continue Procardia XL, Labetalol, Hydralazine - Hold Lasix, HCTZ secondary to hypovolemia 6. Hyperlipidemia - Continue Lipitor 7. Chronic systolic heart failure - Stable - Hold Lasix, HCTZ secondary to hypovolemia 8. Type 2 DM - Hold glucotrol - Fingersticks with Novolog sliding scale 9. History of CVA - Continue aspirin, Lipitor
[2019-03-19] MEDS: INSULIN SLIDING SCALE (NOVOLOG) 1 VIAL SQ SCH ×3 (11:11→22:18)
[2019-03-19 11:24] LABS: EPI CELLS 2.7 /HPF (0-5/HPF); HYALINE CASTS 24 /lpf (0-8); URINE APPEARANCE CLOUDY; URINE BACTERIA 0.5 /hpf (NEGATIVE); URINE BILIRUBIN NEGATIVE (NEGATIVE); URINE COLOR YELLOW; URINE GLUCOSE (UA) TRACE (NEGATIVE); URINE KETONE NEGATIVE (NEGATIVE); URINE LEUK ESTERASE NEGATIVE (NEGATIVE); URINE NITRITE NEGATIVE (NEGATIVE); URINE PROTEIN 3+ (NEGATIVE); URINE RBC 1 /hpf (0-4); URINE UROBILINOGEN 0.2 mg/dL (0.2-1.0); URINE WBC 4 /hpf (0-5)
--- NOTE | 2019-03-19 13:01 | ECHO ---
Name: FILIPPO RICHARD Exam:Adult Echocardiogram Study Date: 03/19/2019 10:29 AM Age: 58 yrs Reason For Study: Tachycardia Height: 74 in Weight: 171 lb BSA: 2.0 m2 MMode/2D Measurements & Calculations IVSd: 1.3 cm Ao root diam: 3.0 cm LVIDd: 3.7 cm LA dimension: 3.1 cm LVIDs: 2.8 cm LVPWd: 1.3 cm LVPWs: 2.4 cm EDV(Teich): 56.3 ml ESV(Teich): 30.8 ml LVOT diam: 2.2 cm RV S Abraham: 11.3 cm/sec Doppler Measurements & Calculations MV E max abraham: 100.0 cm/sec Ao V2 max: 165.8 cm/sec MV A max abraham: 84.9 cm/sec Ao max P.0 mmHg MV E/A: 1.2 Ao V2 mean: 112.6 cm/sec MV dec time: 0.15 sec Ao mean P.0 mmHg Ao V2 VTI: 34.9 cm PANKAJ(I,D): 2.5 cm2 PANKAJ(V,D): 2.7 cm2 LV V1 max P.6 mmHg SV(LVOT): 85.4 ml LV V1 mean P.4 mmHg LV V1 max: 118.8 cm/sec LV V1 mean: 87.0 cm/sec LV V1 VTI: 23.0 cm TR max abraham: 215.3 cm/sec PA V2 max: 105.7 cm/sec TR max P.5 mmHg PA max P.5 mmHg RVSP(TR): 28.5 mmHg Med Peak E' Abraham: 5.0 cm/sec RAP systole: 10.0 mmHg Med E/e': 20.0 Lat Peak E' Abraham: 9.9 cm/sec Lat E/e': 10.1 Left Ventricle Left ventricular systolic function is normal. Ejection Fraction = 55-60%. The transmitral spectral Do ppler flow pattern is normal for age. Right Ventricle The right ventricle is normal in size and function. Atria Normal left and right atrial size and function. Mitral Valve The mitral valve is normal in structure and function. There is no mitral valve stenosis. There is tra ce mitral regurgitation. Tricuspid Valve The tricuspid valve is normal in structure and function. There is mild tricuspid regurgitation. Right ventricular systolic pressure is elevated at 30-40mmHg. Aortic Valve There is mild aortic sclerosis.;. No hemodynamically significant valvular aortic stenosis. No aortic regurgitation is present. Pulmonic Valve The pulmonic valve is not well seen, but is grossly normal. There is no pulmonic valvular stenosis. T here is no pulmonic valvular regurgitation. Great Vessels The aortic root is normal size. Pericardium/Pleura There is no pericardial effusion. Interpretation Summary Compared to study 09/28/18, overall LV systolic function appears improved. Left ventricular systolic f unction is normal. Ejection Fraction = 55-60%. The right ventricle is normal in size and function. There is mild tricuspid regurgitation. Right ventricular systolic pressure is elevated at 30-40mmHg. There is mild aortic sclerosis.; There is no pericardial effusion. Compared to study 09/28/18, overall LV systolic function appears improved. MD Martinez *Terry 03/19/2019 01:01 PM
--- NOTE | 2019-03-19 13:59 | EKG ---
Test Reason : Blood Pressure : / mmHG Vent. Rate : 080 BPM Atrial Rate : 080 BPM P-R Int : 186 ms QRS Dur : 078 ms QT Int : 418 ms P-R-T Axes : 021 -23 047 degrees QTc Int : 482 ms NORMAL SINUS RHYTHM POSSIBLE LEFT ATRIAL ENLARGEMENT LEFT VENTRICULAR HYPERTROPHY NONSPECIFIC T WAVE ABNORMALITY PROLONGED QT ABNORMAL ECG Confirmed by ELODIA KENNY MD ([id number]) on 03/19/2019 1:59:00 PM Referred By: Confirmed By:ELODIA KENNY MD
--- NOTE | 2019-03-19 14:28 | CONSULT ---
Consult - text type - Consultation Consultation Note: Renal Consult for ESRD on dialysis. This is a 58 year old gentleman with history of GABI requiring dialysis (now maintained on HD), CHF, DM, Hypertension who presented from home with fall/near syncope and N/V. Pt last had dialysis on Friday. Currently denies any Abd pain, N/V/D. Denies any SOB at the present time. Denies any dizziness. Makes urine. Has tunneled catheter that he uses for dialysis. PMhx: as above Allergies: NKDA Family Hx: NC Social Hx: No T/A/D ROS: as per HPI, all other pertinent ros negative Home Medications Medication Instructions Recorded Ergocalciferol (Vitamin D2) 50,000 unit PO WEEKLY 09/25/18 [Vitamin D2] Aspirin [ASA -] 81 mg PO DAILY #30 tab.chew 11/20/18 Atorvastatin Ca [Lipitor] 40 mg PO HS #30 tablet 11/20/18 Clopidogrel Bisulfate [Plavix -] 75 mg PO DAILY #30 tablet 11/20/18 Finasteride [Proscar -] 5 mg PO DAILY #30 tablet 11/20/18 Isosorbide Mononitrate [Imdur -] 30 mg PO DAILY #30 tab.sr.24h 11/20/18 Tamsulosin HCl [Flomax] 0.4 mg PO DAILY #30 capsule 11/20/18 hydrALAZINE HCL [Apresoline -] 50 mg PO TID #90 tablet 11/20/18 Furosemide [Lasix -] 80 mg PO BID 01/23/19 Hydrochlorothiazide 50 mg PO DAILY 01/23/19 Labetalol HCl [Normodyne -] 200 mg PO BID 01/23/19 Nifedipine ER [Procardia XL -] 60 mg PO DAILY 01/23/19 Glipizide [Glucotrol] 10 mg PO BID 03/19/19 Losartan Potassium [Cozaar -] 50 mg PO DAILY 03/19/19 Vital Signs Temperature 98.5 F 03/19/19 06:59 Pulse Rate 79 03/19/19 11:50 Respiratory Rate 16 03/19/19 06:59 Blood Pressure 131/73 03/19/19 11:50 O2 Sat by Pulse Oximetry (%) 98 03/19/19 06:59 Intake & Output 03/16/19 03/17/19 03/18/1919 23:59 23:59 23:59 23:59 Weight 77.564 kg NAD awake and alert neck supple RRR, NO M/R CTA, no rales or wheeze soft NT/ND Trace LE edema right IIJ tunneled catheter CBC, BMP 03/19/19 02:28 03/19/19 02:28 Current Medications Acetaminophen (Tylenol -) 650 mg PO Q4H PRN PRN Reason: PAIN OR FEVER Heparin Sodium (Porcine) (Heparin -) 5,000 unit SQ TID SANGEETHA Lactated Ringer's (Lactated Ringers Solution) 1,000 mls @ 50 mls/hr IV ASDIR SANGEETHA Last Admin: 03/19/19 08:35 Dose: 50 mls/hr Famotidine/Sodium Chloride (Pepcid 20 Mg Premixed Ivpb -) 20 mg in 50 mls @ 100 mls/hr IVPB Q48H SANGEETHA Last Admin: 03/19/19 08:36 Dose: 100 mls/hr Insulin Aspart (Novolog Vial Sliding Scale -) 1 vial SQ ACHS [facility]; Protocol Last Admin: 03/19/19 11:11 Dose: Not Given 58 year old gentleman with history of GABI requiring dialysis ( now maintained on HD), CHF, DM, Hypertension who presented from home with fall/ near syncope and N/V. 1. Presyncope due to suspected hypovolemia 2. ESRD on HD 3. Hx of CHF 4. Hypertension 5. DM Type 2 Will defer dialysis until friday as pt does not have any electrolyte abnormalities that would warrant acute dialysis Agree with holding diuretics for now given suspicion of hypovolemia. Can consider D.c of HCTZ all together as it likely is not beneficial in patients with eGFR < 30 Renal diet BP is at goal persistently Thank you Mansoor Beck DO
[2019-03-19] MEDS ORDERED: SODIUM CHLORIDE 250 ML IV PRN (14:39)
[2019-03-19] MEDS: HEPARIN NA (PORCINE) 5,000 UNITS/ML 1ML VIAL SQ SCH ×2 (15:01→22:24)
[2019-03-20] MEDS ORDERED: HEPARIN NA (PORCINE) 5,000 UNITS/ML 1ML VIAL IVPUSH ONE (06:00)
[2019-03-20] MEDS: HEPARIN NA (PORCINE) 5,000 UNITS/ML 1ML VIAL SQ SCH ×3 (06:38→22:25)
[2019-03-20] MEDS: INSULIN SLIDING SCALE (NOVOLOG) 1 VIAL SQ SCH ×4 (06:40→22:26)
[2019-03-20] MEDS: HEPARIN NA (PORCINE) 5,000 UNITS/ML 1ML VIAL IVPUSH SCH ×3 (07:45→09:45)
[2019-03-20 07:50] LABS: BASO % 1.2 % (0-2.0); EOS % 5.2 % (0-4.5); HEMATOCRIT 32.4 % (35.4-49); HEMOGLOBIN 10.7 GM/dL (11.7-16.9); LYMPH % 27.3 % (8-40); MCH 28.8 pg (25.7-33.7); MEAN CELL VOLUME 87.3 fl (80-96); MEAN PLT VOLUME 7.2 fl (7.5-11.1); MONO % 10.1 % (3.8-10.2); NEUT % 56.2 % (42.8-82.8); PLATELET COUNT 329 K/MM3 (134-434); RBC 3.71 M/mm3 (4.00-5.60); RDW 13.6 % (11.9-15.9); WHITE BLOOD COUNT 5.8 K/mm3 (4.0-10.0)
[2019-03-20] MEDS: hydrALAZINE HCL 50 MG TABLET (FP) PO SCH ×6 (08:00→22:25)
[2019-03-20 08:27] LABS: ALBUMIN 2.8 g/dl (3.4-5.0); BILIRUBIN,TOTAL 0.4 mg/dL (0.2-1); BLOOD UREA NITROGEN 88.3 mg/dL (7-18); CREATININE 4.5 mg/dL (0.55-1.3); MAGNESIUM 2.5 mg/dL (1.8-2.4); PHOSPHOROUS 5.2 mg/dL (2.5-4.9); POTASSIUM 3.9 mmol/L (3.5-5.1); TOT PROT 6.8 g/dl (6.4-8.2)
--- NOTE | 2019-03-20 09:00 | PN ---
Progress Note (short form) - Note Progress Note: Renal follow up for ESRD/Dialysis Seen and examined during dialysis BP stable, catheter with BF at [facility] he offers no acute complaints denies any sob, cp, fever, chills on IVF Vital Signs Temperature 98 F 03/20/19 08:00 Pulse Rate 85 03/20/19 08:30 Respiratory Rate 20 03/20/19 08:30 Blood Pressure 181/95 H 03/20/19 08:30 O2 Sat by Pulse Oximetry (%) 100 03/19/19 21:08 Intake & Output 03/17/19 03/18/19 03/19/19 03/20/19 23:59 23:59 23:59 23:59 Intake Total 100 480 Output Total 1 Balance 99 480 Weight 97.6 kg 97.522 kg NAD RRR, NO M/R CTA, no rales or wheeze soft NT/ND Trace LE edema right IIJ tunneled catheter CBC, BMP 03/20/19 06:00 03/20/19 06:00 Current Medications Acetaminophen (Tylenol -) 650 mg PO Q4H PRN PRN Reason: PAIN OR FEVER Heparin Sodium (Porcine) (Heparin -) 5,000 unit SQ TID SANGEETHA Last Admin: 03/20/19 06:38 Dose: 5,000 unit Heparin Sodium (Porcine) (Heparin -) 500 unit IVPUSH Q1H [facility] Stop: 03/20/19 09:01 Last Admin: 03/20/19 08:45 Dose: 500 unit Hydralazine HCl (Apresoline -) 50 mg PO TID SANGEETHA Last Admin: 03/20/19 08:00 Dose: 50 mg Lactated Ringer's (Lactated Ringers Solution) 1,000 mls @ 50 mls/hr IV ASDIR SANGEETHA Last Admin: 03/19/19 08:35 Dose: 50 mls/hr Famotidine/Sodium Chloride (Pepcid 20 Mg Premixed Ivpb -) 20 mg in 50 mls @ 100 mls/hr IVPB Q48H [facility] Last Admin: 03/19/19 08:36 Dose: 100 mls/hr Sodium Chloride (Normal Saline -) 250 mls @ 3,000 mls/hr IV PRN PRN PRN Reason: Hypotension during Dialysis Stop: 03/20/19 14:39 Insulin Aspart (Novolog Vial Sliding Scale -) 1 vial SQ ACHS [facility]; Protocol Last Admin: 03/20/19 06:40 Dose: Not Given Isosorbide Mononitrate (Imdur -) 30 mg PO DAILY SANGEETHA Labetalol HCl (Normodyne -) 200 mg PO BID SANGEETHA Nifedipine (Procardia Xl -) 60 mg PO DAILY SANGEETHA 58 year old gentleman with history of GABI requiring dialysis ( now maintained on HD), CHF, DM, Hypertension who presented from home with fall/ near syncope and N/V. 1. Presyncope due to suspected hypovolemia 2. ESRD on HD 3. Hx of CHF 4. Hypertension 5. DM Type 2 Tolerating dialysis well this am can d/c IVF at this time. Oral intake as tolerated. trend BP on oral medications and off IVF fall precautions discharge planning as per primary team Thank you Mansoor Beck DO
[2019-03-20] MEDS ORDERED: NIFEdipine E.R. 30 MG TABLET (FP) PO SCH ×2 (10:00→17:05)
[2019-03-20] MEDS: LABETALOL HCL 100 MG TABLET (FP) PO SCH (11:37)
[2019-03-20] MEDS: ISOSORBIDE MONONITRATE 30 MG TAB.SR.24H (FP) PO SCH (11:37)
[2019-03-20] MEDS: FUROSEMIDE 40 MG TABLET (FP) PO SCH (13:12)
[2019-03-20] MEDS: LOSARTAN POTASSIUM 50 MG TABLET (FP) PO SCH (15:41)
[2019-03-20] MEDS ORDERED: NIFEdipine E.R 60 MG TABLET (UD) PO ONE (17:07)
[2019-03-20] MEDS ORDERED: NIFEdipine E.R 60 MG TABLET (UD) PO SCH (17:15)
--- NOTE | 2019-03-20 17:23 | PN ---
Physical Exam: SUBJECTIVE: Patient seen and examined OBJECTIVE: Vital Signs Period Temp Pulse Resp BP Sys/Lopez Pulse Ox Last 24 Hr 97.8 F-98.2 F 76-87 14-24 154-202/81-114 100-100 GENERAL: A&Ox3, NAD HEAD: NCAT EYES: PERRL, EOMI ENT: Moist mucous membranes. NECK: Supple, No JVD LUNGS: CTAB, No wheezes, no crackles HEART: Regular rate and rhythm, normal S1 and S2 without murmur ABDOMEN: Soft, nontender, not distended, + bowel sounds, no guarding, no rebound MUSCULOSKELETAL: FROM, No midline Cervical/Thoracic/Lumbar tenderness to palpation, No bony deformities, No CVA tenderness. EXTREMITIES: 2+ pulses, No peripheral edema. NEUROLOGICAL: Cranial nerves II-XII intact. Gross sensation intact throughout. 5 /5 Muscle strength throughout. PSYCHIATRIC: Flat affect SKIN: Warm, dry Laboratory Results - last 24 hr 03/19/19 03/20/19 03/20/19 22:16 06:00 06:00 WBC 5.8 RBC 3.71 L Hgb 10.7 L Hct 32.4 L MCV 87.3 MCH 28.8 MCHC 33.0 RDW 13.6 Plt Count 329 MPV 7.2 L Absolute Neuts (auto) 3.3 Neutrophils % 56.2 Lymphocytes % 27.3 D Monocytes % 10.1 Eosinophils % 5.2 H Basophils % 1.2 Nucleated RBC % 0 Sodium 140 Potassium 3.9 Chloride 106 Carbon Dioxide 24 Anion Gap 10 BUN 88.3 H Creatinine 4.5 H Est GFR (CKD-EPI)AfAm 15.64 Est GFR (CKD-EPI)NonAf 13.50 POC Glucometer 138 Random Glucose 106 Calcium 8.0 L Phosphorus 5.2 H Magnesium 2.5 H Total Bilirubin 0.4 AST 30 ALT 73 H Alkaline Phosphatase 100 Total Protein 6.8 Albumin 2.8 L 03/20/19 03/20/19 03/20/19 06:16 10:26 16:46 WBC RBC Hgb Hct MCV MCH MCHC RDW Plt Count MPV Absolute Neuts (auto) Neutrophils % Lymphocytes % Monocytes % Eosinophils % Basophils % Nucleated RBC % Sodium Potassium Chloride Carbon Dioxide Anion Gap BUN Creatinine Est GFR (CKD-EPI)AfAm Est GFR (CKD-EPI)NonAf POC Glucometer 92 135 136 Random Glucose Calcium Phosphorus Magnesium Total Bilirubin AST ALT Alkaline Phosphatase Total Protein Albumin Active Medications Acetaminophen (Tylenol -) 650 mg PO Q4H PRN PRN Reason: PAIN OR FEVER Furosemide (Lasix -) 80 mg PO BIDLASIX [facility] Last Admin: 03/20/19 13:12 Dose: 80 mg Heparin Sodium (Porcine) (Heparin -) 5,000 unit SQ TID [facility] Last Admin: 03/20/19 13:12 Dose: 5,000 unit Hydralazine HCl (Apresoline -) 50 mg PO TID [facility] Last Admin: 03/20/19 16:35 Dose: Not Given Famotidine/Sodium Chloride (Pepcid 20 Mg Premixed Ivpb -) 20 mg in 50 mls @ 100 mls/hr IVPB Q48H [facility] Last Admin: 03/19/19 08:36 Dose: 100 mls/hr Insulin Aspart (Novolog Vial Sliding Scale -) 1 vial SQ ACHS [facility]; Protocol Last Admin: 03/20/19 17:04 Dose: Not Given Isosorbide Mononitrate (Imdur -) 30 mg PO DAILY [facility] Last Admin: 03/20/19 11:37 Dose: 30 mg Labetalol HCl (Normodyne -) 200 mg PO BID [facility] Last Admin: 03/20/19 11:37 Dose: 200 mg Losartan Potassium (Cozaar -) 50 mg PO DAILY [facility] Last Admin: 03/20/19 15:41 Dose: 50 mg Nifedipine (Procardia Xl -) 120 mg PO DAILY [facility] Nifedipine (Procardia Xl -) 60 mg PO ONCE ONE Stop: 03/20/19 17:08 ASSESSMENT/PLAN: 58 y/o M with PMHx of ESRD (on HD [facility] via R [facility], Last HD on Friday, see's Dr. Quiroz), CAD (s/p 2 FER in 2018 on ASA/Clopidogrel), CHF (Last EF 40-45%), CVA (2018), DMII, HTN, HLD presents with Dizziness and Vomiting. #Presyncope, No longer feeling Dizziness -Possible due to diuresis -Head CT, Echo, EKG noted -Check Orthostatic VS -Continue IV Hydration -Tele -Hold home dose diuretic #ESRD on HD ([facility]), Recieved HD today -Nephro (Dr. Quiroz) consulted, Hold HCTZ as per rec's -Renally dose all meds, CrCL calculated 18 -Avoid nephrotoxic meds (NSAIDs) #Gastritis, Improved -Continue Mylanta PRN, Pepcid Q48H (Renally dosed) #Prolonged QTc -Avoid QT prolonging meds (ie Zofran) -Serial EKGs #CAD (s/p 2 FER) -Continue ASA, Clopidogrel, Statin, Imdur #CHF -Currently not in exacerbation -Continue Lasix, Hold home dose HCTZ #CVA (2018) -Continue ASA, Clopidogrel, Statin #DMII -Hold oral hypoglycemics -ISS BGMs ACHS #HTN -Hypertensive today -Continue home dose Labetalol, hydralazine, Furosemide, Losartan -Increase Nifedipine to 120mg #HLD -Statin #FEN -No Standing fluids -Replete lytes PRN -Diabetic diet #PPx -DVT: Heparin SQ Dispo: Tele-Obs Visit type - Emergency Visit Emergency Visit: Yes ED Registration Date: 03/19/19 Care time: The patient presented to the Emergency Department on the above date and was hospitalized for further evaluation of their emergent condition. - New Patient This patient is new to me today: No - Critical Care Critical Care patient: No ATTENDING PHYSICIAN STATEMENT I saw and evaluated the patient. I reviewed the resident's note and discussed the case with the resident. I agree with the resident's findings and plan as documented. SUBJECTIVE: OBJECTIVE: ASSESSMENT AND PLAN:
--- NOTE | 2019-03-20 18:11 | PN ---
Teaching Attending Note Name of Resident: Swati Amaya ATTENDING PHYSICIAN STATEMENT I saw and evaluated the patient. I reviewed the resident's note and discussed the case with the resident. I agree with the resident's findings and plan as documented. SUBJECTIVE: Lightheadedness resolved. Vomiting resolved. No chest pain/ palpitations. No headache/visual disturbance. No limb numbness/weakness OBJECTIVE: Afebrile, Hypertensive. On HD during interview. Last Vital Signs Temp Pulse Resp BP Pulse Ox 98.2 F 76 18 173/81 H 100 03/20/19 16:00 03/20/19 16:00 03/20/19 16:00 03/20/19 16:00 03/20/19 08:00 HEENT - Atramatic, Normocephalic. Heart - S1, S2, RRR Lungs -clear to auscultation. R tunnelled IJ catheter. Abdomen - soft, non-tender. Bowel Sounds normal. Extremities - no edema, no calf tenderness Neuro - AAO x 3. Tone/Power normal all extremities. Laboratory Results - last 24 hr 03/19/19 03/20/19 03/20/19 22:16 06:00 06:00 WBC 5.8 RBC 3.71 L Hgb 10.7 L Hct 32.4 L MCV 87.3 MCH 28.8 MCHC 33.0 RDW 13.6 Plt Count 329 MPV 7.2 L Absolute Neuts (auto) 3.3 Neutrophils % 56.2 Lymphocytes % 27.3 D Monocytes % 10.1 Eosinophils % 5.2 H Basophils % 1.2 Nucleated RBC % 0 Sodium 140 Potassium 3.9 Chloride 106 Carbon Dioxide 24 Anion Gap 10 BUN 88.3 H Creatinine 4.5 H Est GFR (CKD-EPI)AfAm 15.64 Est GFR (CKD-EPI)NonAf 13.50 POC Glucometer 138 Random Glucose 106 Calcium 8.0 L Phosphorus 5.2 H Magnesium 2.5 H Total Bilirubin 0.4 AST 30 ALT 73 H Alkaline Phosphatase 100 Total Protein 6.8 Albumin 2.8 L 03/20/19 03/20/19 03/20/19 06:16 10:26 16:46 WBC RBC Hgb Hct MCV MCH MCHC RDW Plt Count MPV Absolute Neuts (auto) Neutrophils % Lymphocytes % Monocytes % Eosinophils % Basophils % Nucleated RBC % Sodium Potassium Chloride Carbon Dioxide Anion Gap BUN Creatinine Est GFR (CKD-EPI)AfAm Est GFR (CKD-EPI)NonAf POC Glucometer 92 135 136 Random Glucose Calcium Phosphorus Magnesium Total Bilirubin AST ALT Alkaline Phosphatase Total Protein Albumin Current Medications Generic Name Dose Route Start Last Admin Trade Name Elizabeth PRN Reason Stop Dose Admin Acetaminophen 650 mg 03/19/19 08:00 Tylenol - PO Q4H PRN PAIN OR FEVER Furosemide 80 mg 03/20/19 14:00 03/20/19 13:12 Lasix - PO 80 mg BIDLASIX [facility] Administration Heparin Sodium (Porcine) 5,000 unit 03/19/19 14:00 03/20/19 13:12 Heparin - SQ 5,000 unit TID [facility] Administration Hydralazine HCl 50 mg 03/20/19 07:00 03/20/19 16:35 Apresoline - PO Not Given TID [facility] Famotidine/Sodium Chloride 20 mg in 50 mls @ 100 mls/hr 03/19/19 08:15 08:36 Pepcid 20 Mg Premixed Ivpb - IVPB 100 mls/hr Q48H [facility] Administration Insulin Aspart 1 vial 03/19/19 11:00 03/20/19 17:04 Novolog Vial Sliding Scale - SQ Not Given ACHS [facility] Protocol Isosorbide Mononitrate 30 mg 03/20/19 10:00 03/20/19 11:37 Imdur - PO 30 mg DAILY [facility] Administration Labetalol HCl 200 mg 03/20/19 10:00 03/20/19 11:37 Normodyne - PO 200 mg BID [facility] Administration Losartan Potassium 50 mg 03/20/19 15:30 03/20/19 15:41 Cozaar - PO 50 mg DAILY [facility] Administration Nifedipine 120 mg 03/21/19 10:00 Procardia Xl - PO DAILY [facility] Home Medications Medication Instructions Recorded Ergocalciferol (Vitamin D2) 50,000 unit PO WEEKLY 09/25/18 [Vitamin D2] Aspirin [ASA -] 81 mg PO DAILY #30 tab.chew 11/20/18 Atorvastatin Ca [Lipitor] 40 mg PO HS #30 tablet 11/20/18 Clopidogrel Bisulfate [Plavix -] 75 mg PO DAILY #30 tablet 11/20/18 Finasteride [Proscar -] 5 mg PO DAILY #30 tablet 11/20/18 Isosorbide Mononitrate [Imdur -] 30 mg PO DAILY #30 tab.sr.24h 11/20/18 Tamsulosin HCl [Flomax] 0.4 mg PO DAILY #30 capsule 11/20/18 hydrALAZINE HCL [Apresoline -] 50 mg PO TID #90 tablet 11/20/18 Furosemide [Lasix -] 80 mg PO BID 01/23/19 Labetalol HCl [Normodyne -] 200 mg PO BID 01/23/19 Nifedipine ER [Procardia XL -] 60 mg PO DAILY 01/23/19 Glipizide [Glucotrol] 10 mg PO BID 03/19/19 Losartan Potassium [Cozaar -] 50 mg PO DAILY 03/19/19 ASSESSMENT AND PLAN: 58 year old male with ESRD, CAD s/p PCI/Stent, Chronic Systolic Heart Failure, HTN, HLD, DM 2, Hx CVA, presented with dizziness and vomiting. 1. Dizziness/Presyncope/Vomiting resolved ? sec to HCTZ Symptoms resolved Currently on HD Hold HCTZ as per Nephrology. Discharge once BP controlled and patient ambulates without lightheadedness. 2. Abdominal pain with nausea/vomiting ? sec to gastritis. Resolved. Continue Famotidine 3. ESRD on HD - HD today Dr. Quiroz following. recommend stopping HCTZ. 4. CAD s/p PCI/Stent - Continue Aspirin, Plavix, Lipitor, Imdur, Ranexa 5. HTN - continue Nifedipine, Labetalol, Hydralazine, Losartan, Lasix, Imdur 6. HLD - Continue Statin 7. Chronic systolic heart failure - continue Lasix. 8. DM 2 - maintain on novolog sliding scale. 9. History of CVA - Continue aspirin, plavix, lipitor. 10. BPH - Continue Fnasteride, Tamsulosin. DVT Px - Heparin SQ
[2019-03-21] MEDS: LABETALOL HCL 100 MG TABLET (FP) PO SCH ×3 (00:30→21:30)
[2019-03-21] MEDS: HEPARIN NA (PORCINE) 5,000 UNITS/ML 1ML VIAL SQ SCH ×3 (06:10→21:30)
[2019-03-21] MEDS: FUROSEMIDE 40 MG TABLET (FP) PO SCH ×2 (06:10→14:41)
[2019-03-21] MEDS: hydrALAZINE HCL 50 MG TABLET (FP) PO SCH ×3 (06:10→21:30)
[2019-03-21] MEDS: INSULIN SLIDING SCALE (NOVOLOG) 1 VIAL SQ SCH ×4 (06:48→23:46)
[2019-03-21 07:34] LABS: BASO % 1.2 % (0-2.0); EOS % 4.7 % (0-4.5); HEMATOCRIT 32.2 % (35.4-49); HEMOGLOBIN 10.7 GM/dL (11.7-16.9); LYMPH % 31.4 % (8-40); MCH 28.6 pg (25.7-33.7); MCHC 33.2 g/dl (32.0-35.9); MEAN CELL VOLUME 86.3 fl (80-96); MONO % 13.6 % (3.8-10.2); NEUT % 49.1 % (42.8-82.8); PLATELET COUNT 311 K/MM3 (134-434); RBC 3.73 M/mm3 (4.00-5.60); RDW 13.6 % (11.9-15.9); WHITE BLOOD COUNT 5.7 K/mm3 (4.0-10.0)
[2019-03-21 08:11] LABS: ALBUMIN 2.8 g/dl (3.4-5.0); BILIRUBIN,TOTAL 0.6 mg/dL (0.2-1); BLOOD UREA NITROGEN 61.9 mg/dL (7-18); CALCIUM 7.9 mg/dL (8.5-10.1); CREATININE 4.3 mg/dL (0.55-1.3); MAGNESIUM 2.2 mg/dL (1.8-2.4); PHOSPHOROUS 5.4 mg/dL (2.5-4.9); POTASSIUM 4.2 mmol/L (3.5-5.1); TOT PROT 6.9 g/dl (6.4-8.2)
[2019-03-21] MEDS: FAMOTIDINE 20 MG/50 ML IVPB 20 MG/50 ML MG IVPB SCH (09:50)
[2019-03-21] MEDS ORDERED: NIFEdipine E.R 60 MG TABLET (UD) PO SCH (10:00)
[2019-03-21] MEDS: ISOSORBIDE MONONITRATE 30 MG TAB.SR.24H (FP) PO SCH (11:49)
[2019-03-21] MEDS: LOSARTAN POTASSIUM 50 MG TABLET (FP) PO SCH (11:49)
[2019-03-21 14:12] VITALS: BMI 29.2
--- NOTE | 2019-03-21 16:05 | PN ---
Progress Note (short form) - Note Progress Note: SUBJECTIVE: Reports lightheadedness on standing/ambulating. Vomiting resolved. No chest pain/palpitations. No headache/visual disturbance. No limb numbness/ weakness OBJECTIVE: Afebrile, Hemodynamically Stable Last Vital Signs Temp Pulse Resp BP Pulse Ox 98.2 F 76 15 128/73 100 03/20/19 22:00 03/21/19 04:07 03/21/19 04:07 03/21/19 04:07 03/20/19 22:00 Heart - S1, S2, RRR Lungs - clear to auscultation. R tunnelled IJ catheter. Abdomen - soft, non-tender. Bowel Sounds normal. Extremities - no edema, no calf tenderness Neuro - AAO x 3. Tone/Power normal all extremities. Laboratory Results - last 24 hr 03/20/19 03/20/19 03/20/19 09:00 09:00 16:46 WBC RBC Hgb Hct MCV MCH MCHC RDW Plt Count MPV Absolute Neuts (auto) Neutrophils % Lymphocytes % Monocytes % Eosinophils % Basophils % Nucleated RBC % Sodium Potassium Chloride Carbon Dioxide Anion Gap BUN Creatinine Est GFR (CKD-EPI)AfAm Est GFR (CKD-EPI)NonAf POC Glucometer 136 Random Glucose Calcium Phosphorus Magnesium Total Bilirubin AST ALT Alkaline Phosphatase Total Protein Albumin Hep Bs Antigen Negative Hep C Ab Diagnostic 0.2 03/20/19 03/21/19 03/21/19 22:20 06:08 06:33 WBC 5.7 RBC 3.73 L Hgb 10.7 L Hct 32.2 L MCV 86.3 MCH 28.6 MCHC 33.2 RDW 13.6 Plt Count 311 MPV 7.0 L Absolute Neuts (auto) 2.8 Neutrophils % 49.1 Lymphocytes % 31.4 Monocytes % 13.6 H Eosinophils % 4.7 H Basophils % 1.2 Nucleated RBC % 0 Sodium Potassium Chloride Carbon Dioxide Anion Gap BUN Creatinine Est GFR (CKD-EPI)AfAm Est GFR (CKD-EPI)NonAf POC Glucometer 171 115 Random Glucose Calcium Phosphorus Magnesium Total Bilirubin AST ALT Alkaline Phosphatase Total Protein Albumin Hep Bs Antigen Hep C Ab Diagnostic 03/21/19 03/21/19 06:33 12:31 WBC RBC Hgb Hct MCV MCH MCHC RDW Plt Count MPV Absolute Neuts (auto) Neutrophils % Lymphocytes % Monocytes % Eosinophils % Basophils % Nucleated RBC % Sodium 141 Potassium 4.2 Chloride 102 Carbon Dioxide 29 Anion Gap 10 BUN 61.9 H Creatinine 4.3 H Est GFR (CKD-EPI)AfAm 16.53 Est GFR (CKD-EPI)NonAf 14.26 POC Glucometer 124 Random Glucose 111 H Calcium 7.9 L Phosphorus 5.4 H Magnesium 2.2 Total Bilirubin 0.6 AST 29 ALT 70 H Alkaline Phosphatase 99 Total Protein 6.9 Albumin 2.8 L Hep Bs Antigen Hep C Ab Diagnostic Current Medications Generic Name Dose Route Start Last Admin Trade Name Freq PRN Reason Stop Dose Admin Acetaminophen 650 mg 03/19/19 08:00 Tylenol - PO Q4H PRN PAIN OR FEVER Furosemide 80 mg 03/20/19 14:00 03/21/19 06:10 Lasix - PO 80 mg BIDLASIX SANGEETHA Administration Heparin Sodium (Porcine) 5,000 unit 03/19/19 14:00 03/21/19 06:10 Heparin - SQ 5,000 unit TID SANGEETHA Administration Hydralazine HCl 50 mg 03/20/19 07:00 03/21/19 06:10 Apresoline - PO 50 mg TID S[facility] Administration Famotidine/Sodium Chloride 20 mg in 50 mls @ 100 mls/hr 03/19/19 08:15 09:50 Pepcid 20 Mg Premixed Ivpb - IVPB 100 mls/hr Q48H [facility] Administration Insulin Aspart 1 vial 03/19/19 11:00 03/21/19 12:32 Novolog Vial Sliding Scale - SQ Not Given ACHS [facility] Protocol Isosorbide Mononitrate 30 mg 03/20/19 10:00 03/21/19 11:49 Imdur - PO 30 mg DAILY [facility] Administration Labetalol HCl 200 mg 03/20/19 10:00 03/21/19 11:49 Normodyne - PO 200 mg BID [facility] Administration Losartan Potassium 50 mg 03/20/19 15:30 03/21/19 11:49 Cozaar - PO 50 mg DAILY [facility] Administration Nifedipine 120 mg 03/21/19 10:00 03/21/19 11:50 Procardia Xl - PO 120 mg DAILY [facility] Administration Home Medications Medication Instructions Recorded Ergocalciferol (Vitamin D2) 50,000 unit PO WEEKLY 09/25/18 [Vitamin D2] Aspirin [ASA -] 81 mg PO DAILY #30 tab.chew 11/20/18 Atorvastatin Ca [Lipitor] 40 mg PO HS #30 tablet 11/20/18 Clopidogrel Bisulfate [Plavix -] 75 mg PO DAILY #30 tablet 11/20/18 Finasteride [Proscar -] 5 mg PO DAILY #30 tablet 11/20/18 Isosorbide Mononitrate [Imdur -] 30 mg PO DAILY #30 tab.sr.24h 11/20/18 Tamsulosin HCl [Flomax] 0.4 mg PO DAILY #30 capsule 11/20/18 hydrALAZINE HCL [Apresoline -] 50 mg PO TID #90 tablet 11/20/18 Furosemide [Lasix -] 80 mg PO BID 01/23/19 Labetalol HCl [Normodyne -] 200 mg PO BID 01/23/19 Nifedipine ER [Procardia XL -] 60 mg PO DAILY 01/23/19 Glipizide [Glucotrol] 10 mg PO BID 03/19/19 Losartan Potassium [Cozaar -] 50 mg PO DAILY 03/19/19 ASSESSMENT AND PLAN: 58 year old male with ESRD on HD, CAD s/p PCI/Stent, Chronic Systolic Heart Failure, HTN, HLD, DM 2, Hx CVA, presented with dizziness and vomiting. 1. Lightheadedness, Orthostatics positive ? sec to HCTZ Symptoms ongoing on ambulation preventing safe discharge. HCTZ held. PT, Cardio evaluation if persisting Orthostasis/lightheadedness 2. Abdominal pain with nausea/vomiting ? sec to gastritis. Resolved. Continue Famotidine 3. ESRD on HD Dr. Richie benjamin. 4. CAD s/p PCI/Stent - Continue Aspirin, Plavix, Lipitor, Imdur, Ranexa. 5. HTN - continue Nifedipine, Labetalol, Hydralazine, Losartan, Lasix, Imdur. 6. HLD - Continue Statin 7. Chronic systolic heart failure - continue Lasix. 8. DM 2 - maintain on novolog sliding scale. 9. History of CVA - Continue aspirin, plavix, lipitor. 10. BPH - Continue Finasteride. If symptoms/orthostasis persist, consider stopping Tamsulosin. DVT Px - Heparin SQ Visit type - Emergency Visit Emergency Visit: Yes ED Registration Date: 03/19/19 Care time: The patient presented to the Emergency Department on the above date and was hospitalized for further evaluation of their emergent condition. - New Patient This patient is new to me today: No - Critical Care Critical Care patient: No - Discharge Referral Referred to [facility] Med [facility].C.: No
[2019-03-22] MEDS: HEPARIN NA (PORCINE) 5,000 UNITS/ML 1ML VIAL SQ SCH ×3 (06:47→21:40)
[2019-03-22] MEDS: hydrALAZINE HCL 50 MG TABLET (FP) PO SCH ×3 (06:47→21:40)
[2019-03-22] MEDS: FUROSEMIDE 40 MG TABLET (FP) PO SCH ×2 (06:48→14:16)
[2019-03-22] MEDS: INSULIN SLIDING SCALE (NOVOLOG) 1 VIAL SQ SCH ×4 (06:48→23:35)
[2019-03-22] MEDS: NIFEdipine E.R 60 MG TABLET (UD) PO SCH (10:07)
[2019-03-22] MEDS: LABETALOL HCL 100 MG TABLET (FP) PO SCH ×2 (10:07→21:40)
[2019-03-22] MEDS: LOSARTAN POTASSIUM 50 MG TABLET (FP) PO SCH (10:07)
[2019-03-22] MEDS: ISOSORBIDE MONONITRATE 30 MG TAB.SR.24H (FP) PO SCH (10:07)
[2019-03-22 10:35] LABS: BASO % 0.9 % (0-2.0); EOS % 5.1 % (0-4.5); HEMATOCRIT 32.1 % (35.4-49); HEMOGLOBIN 10.3 GM/dL (11.7-16.9); LYMPH % 27.9 % (8-40); MCH 28.3 pg (25.7-33.7); MCHC 32.1 g/dl (32.0-35.9); MEAN CELL VOLUME 88.3 fl (80-96); MEAN PLT VOLUME 6.9 fl (7.5-11.1); NEUT % 56.1 % (42.8-82.8); PLATELET COUNT 276 K/MM3 (134-434); RBC 3.64 M/mm3 (4.00-5.60); RDW 13.5 % (11.9-15.9); WHITE BLOOD COUNT 5.6 K/mm3 (4.0-10.0)
[2019-03-22 11:16] LABS: ALBUMIN 2.8 g/dl (3.4-5.0); BILIRUBIN,TOTAL 0.5 mg/dL (0.2-1); BLOOD UREA NITROGEN 80.1 mg/dL (7-18); CALCIUM 7.6 mg/dL (8.5-10.1); CREATININE 4.9 mg/dL (0.55-1.3); POTASSIUM 4.5 mmol/L (3.5-5.1); TOT PROT 6.9 g/dl (6.4-8.2)
--- NOTE | 2019-03-22 12:54 | PN ---
Teaching Attending Note Name of Resident: Paulo Reyez ATTENDING PHYSICIAN STATEMENT I saw and evaluated the patient. I reviewed the resident's note and discussed the case with the resident. I agree with the resident's findings and plan as documented. SUBJECTIVE: Reports ongoing lightheadedness on standing/ambulating. Vomiting resolved. No chest pain/palpitations. No headache/visual disturbance. No limb numbness/weakness OBJECTIVE: Afebrile, Orthostasis +, flat affect. Last Vital Signs Temp Pulse Resp BP Pulse Ox 98.4 F 78 16 114/62 100 03/21/19 20:00 03/22/19 12:22 03/22/19 12:22 03/22/19 12:22 03/21/19 21:00 Heart - S1, S2, RRR Lungs - clear to auscultation. R tunnelled IJ catheter. Abdomen - soft, non-tender. Bowel Sounds normal. Extremities - no edema, no calf tenderness Neuro - AAO x 3. Tone/Power normal all extremities. Laboratory Results - last 24 hr 03/21/19 03/21/19 03/22/19 17:40 21:39 06:42 WBC RBC Hgb Hct MCV MCH MCHC RDW Plt Count MPV Absolute Neuts (auto) Neutrophils % Lymphocytes % Monocytes % Eosinophils % Basophils % Nucleated RBC % Sodium Potassium Chloride Carbon Dioxide Anion Gap BUN Creatinine Est GFR (CKD-EPI)AfAm Est GFR (CKD-EPI)NonAf POC Glucometer 144 192 127 Random Glucose Calcium Total Bilirubin AST ALT Alkaline Phosphatase Total Protein Albumin 03/22/19 03/22/19 03/22/19 10:06 10:06 12:32 WBC 5.6 RBC 3.64 L Hgb 10.3 L Hct 32.1 L MCV 88.3 MCH 28.3 MCHC 32.1 RDW 13.5 Plt Count 276 MPV 6.9 L Absolute Neuts (auto) 3.2 Neutrophils % 56.1 Lymphocytes % 27.9 Monocytes % 10.0 Eosinophils % 5.1 H Basophils % 0.9 Nucleated RBC % 0 Sodium 139 Potassium 4.5 Chloride 102 Carbon Dioxide 27 Anion Gap 10 BUN 80.1 H Creatinine 4.9 H Est GFR (CKD-EPI)AfAm 14.11 Est GFR (CKD-EPI)NonAf 12.18 POC Glucometer 127 Random Glucose 187 H Calcium 7.6 L Total Bilirubin 0.5 AST 31 ALT 73 H Alkaline Phosphatase 96 Total Protein 6.9 Albumin 2.8 L Current Medications Generic Name Dose Route Start Last Admin Trade Name Freq PRN Reason Stop Dose Admin Acetaminophen 650 mg 03/19/19 08:00 Tylenol - PO Q4H PRN PAIN OR FEVER Furosemide 80 mg 03/20/19 14:00 03/22/19 06:48 Lasix - PO 80 mg BIDLASIX [facility] Administration Heparin Sodium (Porcine) 5,000 unit 03/19/19 14:00 03/22/19 06:47 Heparin - SQ 5,000 unit TID S[facility] Administration Hydralazine HCl 50 mg 03/20/19 07:00 03/22/19 06:47 Apresoline - PO 50 mg TID S[facility] Administration Famotidine/Sodium Chloride 20 mg in 50 mls @ 100 mls/hr 03/19/19 08:15 09:50 Pepcid 20 Mg Premixed Ivpb - IVPB 100 mls/hr Q48H [facility] Administration Insulin Aspart 1 vial 03/19/19 11:00 03/22/19 06:48 Novolog Vial Sliding Scale - SQ Not Given ACHS [facility] Protocol Isosorbide Mononitrate 30 mg 03/20/19 10:00 03/22/19 10:07 Imdur - PO 30 mg DAILY [facility] Administration Labetalol HCl 200 mg 03/20/19 10:00 03/22/19 10:07 Normodyne - PO 200 mg BID [facility] Administration Losartan Potassium 50 mg 03/20/19 15:30 03/22/19 10:07 Cozaar - PO 50 mg DAILY [facility] Administration Midodrine 2.5 mg 03/22/19 14:00 Proamatine - PO TID-MID SANGEETHA Nifedipine 60 mg 03/22/19 10:00 03/22/19 10:07 Procardia Xl - PO 60 mg DAILY [facility] Administration Home Medications Medication Instructions Recorded Ergocalciferol (Vitamin D2) 50,000 unit PO WEEKLY 09/25/18 [Vitamin D2] Aspirin [ASA -] 81 mg PO DAILY #30 tab.chew 11/20/18 Atorvastatin Ca [Lipitor] 40 mg PO HS #30 tablet 11/20/18 Clopidogrel Bisulfate [Plavix -] 75 mg PO DAILY #30 tablet 11/20/18 Finasteride [Proscar -] 5 mg PO DAILY #30 tablet 11/20/18 Isosorbide Mononitrate [Imdur -] 30 mg PO DAILY #30 tab.sr.24h 11/20/18 Tamsulosin HCl [Flomax] 0.4 mg PO DAILY #30 capsule 11/20/18 hydrALAZINE HCL [Apresoline -] 50 mg PO TID #90 tablet 11/20/18 Furosemide [Lasix -] 80 mg PO BID 01/23/19 Labetalol HCl [Normodyne -] 200 mg PO BID 01/23/19 Nifedipine ER [Procardia XL -] 60 mg PO DAILY 01/23/19 Glipizide [Glucotrol] 10 mg PO BID 03/19/19 Losartan Potassium [Cozaar -] 50 mg PO DAILY 03/19/19 ASSESSMENT AND PLAN: 58 year old male with ESRD on HD, CAD s/p PCI/Stent, Chronic Systolic Heart Failure, HTN, HLD, DM 2, Hx CVA, presented with dizziness and vomiting. 1. Lightheadedness, Orthostatics positive - persistent Symptoms ongoing on ambulation preventing safe discharge. HCTZ held. Will start Midodrine TID PT 2. Abdominal pain with nausea/vomiting ? sec to gastritis - Resolved. Continue Famotidine 3. ESRD on HD Dr. Richie benjamin. 4. CAD s/p PCI/Stent - Continue Aspirin, Plavix, Lipitor, Imdur, Ranexa. 5. HTN - continue Nifedipine, Labetalol, Hydralazine, Losartan, Lasix, Imdur. 6. HLD - Continue Statin 7. Hx Chronic systolic heart failure - Echo 03/19 shows improved EF 55-60% - Continue BB, Lasix. 8. DM 2 - maintain on novolog sliding scale. 9. History of CVA - Continue aspirin, plavix, lipitor. 10. BPH - Continue Finasteride. Tamsulosin held. DVT Px - Heparin SQ
--- NOTE | 2019-03-22 13:02 | PN ---
Progress Note (short form) - Note Progress Note: Renal follow up for ESRD/Dialysis Seen and examined at the bedside awake and alert reports dizziness when he changes his position no fever, chills no further N/V Remains orthotatic Vital Signs Temperature 98.4 F 03/21/19 20:00 Pulse Rate 78 03/22/19 12:22 Respiratory Rate 16 03/22/19 12:22 Blood Pressure 114/62 03/22/19 12:22 O2 Sat by Pulse Oximetry (%) 100 03/21/19 21:00 Intake & Output 03/19/19 03/20/19 03/21/19 03/22/19 23:59 23:59 23:59 23:59 Intake Total 100 2140 860 100 Output Total 1 4100 780 700 Balance 1960 80 -600 Weight 97.6 kg 97.522 kg 103.419 kg NAD RRR, NO M/R CTA, no rales or wheeze soft NT/ND Trace LE edema right IIJ tunneled catheter CBC, BMP 03/22/19 10:06 03/22/19 10:06 Current Medications Acetaminophen (Tylenol -) 650 mg PO Q4H PRN PRN Reason: PAIN OR FEVER Furosemide (Lasix -) 80 mg PO BIDLASIX [facility] Last Admin: 03/22/19 06:48 Dose: 80 mg Heparin Sodium (Porcine) (Heparin -) 5,000 unit SQ TID [facility] Last Admin: 03/22/19 06:47 Dose: 5,000 unit Hydralazine HCl (Apresoline -) 50 mg PO TID [facility] Last Admin: 03/22/19 06:47 Dose: 50 mg Famotidine/Sodium Chloride (Pepcid 20 Mg Premixed Ivpb -) 20 mg in 50 mls @ 100 mls/hr IVPB Q48H [facility] Last Admin: 03/21/19 09:50 Dose: 100 mls/hr Insulin Aspart (Novolog Vial Sliding Scale -) 1 vial SQ ACHS [facility]; Protocol Last Admin: 03/22/19 06:48 Dose: Not Given Isosorbide Mononitrate (Imdur -) 30 mg PO DAILY [facility] Last Admin: 03/22/19 10:07 Dose: 30 mg Labetalol HCl (Normodyne -) 200 mg PO BID [facility] Last Admin: 03/22/19 10:07 Dose: 200 mg Losartan Potassium (Cozaar -) 50 mg PO DAILY [facility] Last Admin: 03/22/19 10:07 Dose: 50 mg Midodrine (Proamatine -) 2.5 mg PO TID-MID S[facility] Nifedipine (Procardia Xl -) 60 mg PO DAILY [facility] Last Admin: 03/22/19 10:07 Dose: 60 mg 58 year old gentleman with history of GABI requiring dialysis ( now maintained on HD), CHF, DM, Hypertension who presented from home with fall/ near syncope and N/V. 1. Presyncope due to suspected hypovolemia 2. ESRD on HD 3. Hx of CHF 4. Hypertension 5. DM Type 2 No acute need for dialysis today, will antipate next HD being tomorrow if pt remains orthostatic would recommend starting Midodrine 2.5mg Q8h Monitor for supine hypertension continue Nifedpine and Labetalol Renal diet Thank you Mansoor Beck DO
[2019-03-22] MEDS ORDERED: PT OWN MED DRAWER 7, Y5N ONE (14:11)
[2019-03-22] MEDS: CLOPIDOGREL BISULFATE 75 MG TABLET (FP) PO SCH (14:15)
[2019-03-22] MEDS: ASPIRIN 81 MG CHEWABLE TABLETS PO SCH (14:15)
[2019-03-22] MEDS: MIDODRINE HCL 2.5 MG TABLET PO SCH ×2 (14:16→17:11)
--- NOTE | 2019-03-22 15:17 | PN ---
Physical Exam: SUBJECTIVE: 58 y/o male with PMH ESRD (on HD TuThSa via RIGHT Permacath, last HD on Friday, see's Dr. Quiroz), CAD (s/p 2 FER in 2018 on ASA/Clopidogrel), CHF (Last EF 09/22 40-45%), CVA (2018), DMII, HTN, HLD whom presented with dizziness and vomiting and admitted for recurring dizziness s/p initiation of dialysis. Pt states he started dialysis 8 weeks ago. After his dialysis sessions, he describes that standing elicits weak knees, vision darkening, and the room spinning around him. Symptoms have persisted to this morning when manager staffing attempt to assist pt. He denies any further episodes of vomiting and has no more abdominal pain; says PPI provides great relief. OBJECTIVE: Vital Signs Temp Pulse Resp BP Pulse Ox 98.3 F 78 20 120/65 100 03/22/19 14:00 03/22/19 16:00 03/22/19 16:00 03/22/19 16:00 03/21/19 21:00 GENERAL: AOx3, in no acute distress. HEAD: NCAT EYES: Exopthalmos. MICHELLE, EOMI, conjunctiva clear. ENT: Ears normal, nares patent, oropharynx clear without exudates. Moist mucous membranes. NECK: Normal range of motion, supple without lymphadenopathy, JVD, or masses. LUNGS: CTAB. No wheezes, and no crackles. No accessory muscle use. HEART: RRR s1 s2 ABDOMEN: Soft, BS present in all 4 quadrants, non-distended, no JVD, MUSCULOSKELETAL: No bony deformities or tenderness. No CVA tenderness. UPPER EXTREMITIES: 2+ pulses, warm, well-perfused. No cyanosis. No clubbing. No peripheral edema. LOWER EXTREMITIES: 2+ pulses, warm, well-perfused. No calf tenderness. No peripheral edema. NEUROLOGICAL: Cranial nerves II-XII intact. Normal speech. Gait not appreciated. PSYCHIATRIC: Flat affect. Cooperative. Fair eye contact. Appropriate mood and affect. SKIN: Warm, dry, normal turgor, no rashes or lesions noted, normal capillary refill. Laboratory Results - last 24 hr 03/21/19 03/21/19 03/22/19 17:40 21:39 06:42 WBC RBC Hgb Hct MCV MCH MCHC RDW Plt Count MPV Absolute Neuts (auto) Neutrophils % Lymphocytes % Monocytes % Eosinophils % Basophils % Nucleated RBC % Sodium Potassium Chloride Carbon Dioxide Anion Gap BUN Creatinine Est GFR (CKD-EPI)AfAm Est GFR (CKD-EPI)NonAf POC Glucometer 144 192 127 Random Glucose Calcium Total Bilirubin AST ALT Alkaline Phosphatase Total Protein Albumin 03/22/19 03/22/19 03/22/19 10:06 10:06 12:32 WBC 5.6 RBC 3.64 L Hgb 10.3 L Hct 32.1 L MCV 88.3 MCH 28.3 MCHC 32.1 RDW 13.5 Plt Count 276 MPV 6.9 L Absolute Neuts (auto) 3.2 Neutrophils % 56.1 Lymphocytes % 27.9 Monocytes % 10.0 Eosinophils % 5.1 H Basophils % 0.9 Nucleated RBC % 0 Sodium 139 Potassium 4.5 Chloride 102 Carbon Dioxide 27 Anion Gap 10 BUN 80.1 H Creatinine 4.9 H Est GFR (CKD-EPI)AfAm 14.11 Est GFR (CKD-EPI)NonAf 12.18 POC Glucometer 127 Random Glucose 187 H Calcium 7.6 L Total Bilirubin 0.5 AST 31 ALT 73 H Alkaline Phosphatase 96 Total Protein 6.9 Albumin 2.8 L Active Medications Acetaminophen (Tylenol -) 650 mg PO Q4H PRN PRN Reason: PAIN OR FEVER Aspirin (Asa -) 81 mg PO DAILY [facility] Last Admin: 03/22/19 14:15 Dose: 81 mg Atorvastatin Calcium (Lipitor -) 40 mg PO HS [facility] Last Admin: 03/22/19 21:40 Dose: 40 mg Clopidogrel Bisulfate (Plavix -) 75 mg PO DAILY [facility] Last Admin: 03/22/19 14:15 Dose: 75 mg Finasteride (Proscar -) 5 mg PO DAILY [facility] Furosemide (Lasix -) 80 mg PO BIDLASIX [facility] Last Admin: 03/22/19 14:16 Dose: 80 mg Heparin Sodium (Porcine) (Heparin -) 5,000 unit SQ TID [facility] Last Admin: 03/22/19 21:40 Dose: 5,000 unit Hydralazine HCl (Apresoline -) 50 mg PO TID [facility] Last Admin: 03/22/19 21:40 Dose: 50 mg Famotidine/Sodium Chloride (Pepcid 20 Mg Premixed Ivpb -) 20 mg in 50 mls @ 100 mls/hr IVPB Q48H [facility] Last Admin: 03/21/19 09:50 Dose: 100 mls/hr Insulin Aspart (Novolog Vial Sliding Scale -) 1 vial SQ ACHS [facility]; Protocol Last Admin: 03/22/19 17:11 Dose: Not Given Isosorbide Mononitrate (Imdur -) 30 mg PO DAILY [facility] Last Admin: 03/22/19 10:07 Dose: 30 mg Labetalol HCl (Normodyne -) 200 mg PO BID [facility] Last Admin: 03/22/19 21:40 Dose: 200 mg Losartan Potassium (Cozaar -) 50 mg PO DAILY [facility] Last Admin: 03/22/19 10:07 Dose: 50 mg Midodrine (Proamatine -) 2.5 mg PO TID-MID [facility] Last Admin: 03/22/19 17:11 Dose: 2.5 mg Nifedipine (Procardia Xl -) 60 mg PO DAILY [facility] Last Admin: 03/22/19 10:07 Dose: 60 mg ASSESSMENT/PLAN: 58 y/o male with PMH ESRD (on HD TuThSa via RIGHT Permacath, last HD on Friday , see's Dr. Quiroz), CAD (s/p 2 FER in 2018 on ASA/clopidogrel), CHF (Last EF 40-45%), CVA (2018), DMII, HTN, HLD whom presented with dizziness and vomiting and admitted for recurring dizziness s/p initiation of dialysis. # Dizziness - Orthostatic hypotension (+) - HCTZ held - Midodrine 2.5 PO TID added # Gastritis/GI prophylaxis - Famotidine 20 mg in 50 mL IVPB q48h # R/o Benign paroxysmal positional vertigo - Describes room spinning - Vestibular rehab out-patient # R/o thyroid dysfunction - Exopthalmos on exam - No goiter appreciated - TSH, free t4 ordered # ESRD - Dr. Quiroz following - Monitor for supine hypertension - Renal diet # CAD - Cont. home regimen of ASA 81 mg PO QD, lipitor 40 mg PO HS, isosorbide mononitrate 30 mg PO QD, and clopidogrel 75 mg PO QD # Systolic CHF - Last ECHO 09/22 EF 40-45% - Cont. home regimen: Labetalol 200 mg PO BID, Lasix 80 mg PO BID # DM - Hold home regimen - ISS # HTN - Cont. home regimen: Lasix 80 mg PO BID, hydralazine 50 mg PO TID, Labetalol 200 mg PO BID, Losartan 50 mg PO QD, Nifedepine 60 mg PO QD # HLD - Cont. home regimen # BPH - Cont. finasteride - HOLD tamsulosin # F/E/N - No standing fluids - Cont. to monitor electrolytes - Low sodium diet with diabetic modification # DVT prophylaxis - Heparin # Dispo - Cont. telemonitoring Paulo Reyez MD Visit type - Emergency Visit Emergency Visit: No - New Patient This patient is new to me today: Yes Date on this admission: 03/22/19 - Critical Care Critical Care patient: No - Discharge Referral Referred to [facility] Med P.C.: No ATTENDING PHYSICIAN STATEMENT I saw and evaluated the patient. I reviewed the resident's note and discussed the case with the resident. I agree with the resident's findings and plan as documented. SUBJECTIVE: OBJECTIVE: ASSESSMENT AND PLAN:
[2019-03-22] MEDS ORDERED: ATORVASTATIN CA 40 MG TABLET (FP) PO SCH (22:00)
[2019-03-23] MEDS: hydrALAZINE HCL 50 MG TABLET (FP) PO SCH ×2 (05:50→14:47)
[2019-03-23] MEDS: FUROSEMIDE 40 MG TABLET (FP) PO SCH ×2 (05:50→14:47)
[2019-03-23] MEDS: HEPARIN NA (PORCINE) 5,000 UNITS/ML 1ML VIAL SQ SCH ×2 (05:51→14:47)
[2019-03-23] MEDS: INSULIN SLIDING SCALE (NOVOLOG) 1 VIAL SQ SCH ×4 (05:52→18:56)
[2019-03-23 06:52] LABS: BASO % 1.3 % (0-2.0); EOS % 5.1 % (0-4.5); HEMATOCRIT 32.1 % (35.4-49); HEMOGLOBIN 10.7 GM/dL (11.7-16.9); LYMPH % 25.5 % (8-40); MCHC 33.2 g/dl (32.0-35.9); MEAN CELL VOLUME 87.5 fl (80-96); MEAN PLT VOLUME 7.2 fl (7.5-11.1); MONO % 10.7 % (3.8-10.2); NEUT % 57.4 % (42.8-82.8); PLATELET COUNT 279 K/MM3 (134-434); RBC 3.67 M/mm3 (4.00-5.60); RDW 13.3 % (11.9-15.9); WHITE BLOOD COUNT 5.7 K/mm3 (4.0-10.0)
[2019-03-23 06:59] LABS: ALBUMIN 2.9 g/dl (3.4-5.0); BILIRUBIN,TOTAL 0.5 mg/dL (0.2-1); BLOOD UREA NITROGEN 94.5 mg/dL (7-18); CALCIUM 8.1 mg/dL (8.5-10.1); MAGNESIUM 2.1 mg/dL (1.8-2.4); PHOSPHOROUS 5.6 mg/dL (2.5-4.9); POTASSIUM 4.4 mmol/L (3.5-5.1); TOT PROT 6.8 g/dl (6.4-8.2)
[2019-03-23] MEDS: FAMOTIDINE 20 MG/50 ML IVPB 20 MG/50 ML MG IVPB SCH (08:44)
[2019-03-23] MEDS ORDERED: PT OWN MED DRAWER 7, Y5N ONE (08:46)
[2019-03-23] MEDS: ASPIRIN 81 MG CHEWABLE TABLETS PO SCH (09:45)
[2019-03-23] MEDS: LABETALOL HCL 100 MG TABLET (FP) PO SCH (09:45)
[2019-03-23] MEDS: CLOPIDOGREL BISULFATE 75 MG TABLET (FP) PO SCH (09:45)
[2019-03-23] MEDS: NIFEdipine E.R 60 MG TABLET (UD) PO SCH (09:45)
[2019-03-23] MEDS: ISOSORBIDE MONONITRATE 30 MG TAB.SR.24H (FP) PO SCH (09:46)
[2019-03-23] MEDS: LOSARTAN POTASSIUM 50 MG TABLET (FP) PO SCH (09:46)
[2019-03-23] MEDS: MIDODRINE HCL 2.5 MG TABLET PO SCH ×3 (09:49→18:57)
[2019-03-23] MEDS ORDERED: FINASTERIDE 5 MG TABLET (FP) PO SCH (10:00)
[2019-03-23] MEDS: HEPARIN NA (PORCINE) 5,000 UNITS/ML 1ML VIAL IVPUSH SCH ×3 (11:20→13:32)
[2019-03-23] MEDS ORDERED: SODIUM CHLORIDE 250 ML IV PRN (12:13)
[2019-03-23] MEDS ORDERED: HEPARIN NA (PORCINE) 5,000 UNITS/ML 1ML VIAL IVPUSH ONE (12:15)
--- NOTE | 2019-03-23 12:25 | PN ---
Teaching Attending Note Name of Resident: Paulo Reyez ATTENDING PHYSICIAN STATEMENT I saw and evaluated the patient. I reviewed the resident's note and discussed the case with the resident. I agree with the resident's findings and plan as documented. SUBJECTIVE: asymptomatic. states dizzyness has resolved. was having it mostly after HD but overall improved. denies Cp, SOB, fever, chills, N/V/C/D OBJECTIVE: Last Vital Signs Temp Pulse Resp BP Pulse Ox 98.5 F 80 18 92/68 100 03/23/19 10:15 03/23/19 11:50 03/23/19 11:50 03/23/19 11:50 03/21/19 21:00 General NAD CV S1 S2 RRR no murmur/rub/gallop Lungs CTA B/L no wheezing/rales/rhonchi ASSESSMENT AND PLAN: 58 year old male with ESRD on HD, CAD s/p PCI/Stent, Chronic Systolic Heart Failure, HTN, HLD, DM 2, Hx CVA, presented with dizziness and vomiting. 1. Lightheadedness, Orthostatics positive - started on midodrine yesterday with improvement. no longer symptomatic. cont to hold HCTZ. only walked 6 ft yesterday with PT. will repeat orthostatics. PT eval today to see if ASHLIE needed. 2. Abdominal pain with nausea/vomiting ? sec to gastritis - Resolved. Continue Famotidine 3. ESRD on HD - regular scheduled HD today. 4. CAD s/p PCI/Stent - Continue Aspirin, Plavix, Lipitor, Imdur, Ranexa. 5. HTN - continue Nifedipine, Labetalol, Hydralazine, Losartan, Lasix, Imdur. 6. Dyslipidemia - Continue Statin 7. Hx Chronic systolic heart failure - Echo 03/19 shows improved EF 55-60% - Continue BB, Lasix. 8. DM 2 - maintain on novolog sliding scale. 9. History of CVA - Continue aspirin, plavix, lipitor. 10. BPH - Continue Finasteride. Tamsulosin held. 11. DVT Px - Heparin SQ 12. PT assessment and liekly discharge home. pt states he is refusing ASHLIE and was unable to walk due to dizzyness. agreeable to re-assessment and home PT if needed. d/c likely today
--- NOTE | 2019-03-23 15:31 | PN ---
Progress Note (short form) - Note Progress Note: Renal follow up for ESRD/Dialysis Seen and examined at the bedside s/p dialysis earlier today, UF 2.5L pt reports that dizziness is now resolved no chest pain, abd pain, fever or chills BP was elevated overnight Vital Signs Temperature 98.5 F 03/23/19 10:15 Pulse Rate 73 03/23/19 14:00 Respiratory Rate 18 03/23/19 14:00 Blood Pressure 121/66 03/23/19 14:00 O2 Sat by Pulse Oximetry (%) 100 03/21/19 21:00 Intake & Output 03/20/19 03/21/19 03/22/19 03/23/19 23:59 23:59 23:59 23:59 Intake Total 2140 860 700 650 Output Total 4100 780 1100 2900 Balance -1960 80 -400 -2250 Weight 97.522 kg 103.419 kg 99.393 kg NAD RRR, NO M/R CTA, no rales or wheeze soft NT/ND Trace LE edema right IIJ tunneled catheter CBC, BMP 03/23/19 05:10 03/23/19 05:10 Current Medications Acetaminophen (Tylenol -) 650 mg PO Q4H PRN PRN Reason: PAIN OR FEVER Aspirin (Asa -) 81 mg PO DAILY [facility] Last Admin: 03/23/19 09:45 Dose: 81 mg Atorvastatin Calcium (Lipitor -) 40 mg PO HS [facility] Last Admin: 03/22/19 21:40 Dose: 40 mg Clopidogrel Bisulfate (Plavix -) 75 mg PO DAILY [facility] Last Admin: 03/23/19 09:45 Dose: 75 mg Finasteride (Proscar -) 5 mg PO DAILY [facility] Last Admin: 03/23/19 09:46 Dose: 5 mg Furosemide (Lasix -) 80 mg PO BIDLASIX [facility] Last Admin: 03/23/19 14:47 Dose: Not Given Heparin Sodium (Porcine) (Heparin -) 5,000 unit SQ TID [facility] Last Admin: 03/23/19 14:47 Dose: 5,000 unit Hydralazine HCl (Apresoline -) 50 mg PO TID [facility] Last Admin: 03/23/19 14:47 Dose: Not Given Famotidine/Sodium Chloride (Pepcid 20 Mg Premixed Ivpb -) 20 mg in 50 mls @ 100 mls/hr IVPB Q48H [facility] Last Admin: 03/23/19 08:44 Dose: 100 mls/hr Sodium Chloride (Normal Saline -) 250 mls @ 3,000 mls/hr IV PRN PRN PRN Reason: Hypotension during Dialysis Stop: 03/24/19 12:12 Insulin Aspart (Novolog Vial Sliding Scale -) 1 vial SQ ACHS [facility]; Protocol Last Admin: 03/23/19 12:35 Dose: 2 units Isosorbide Mononitrate (Imdur -) 30 mg PO DAILY [facility] Last Admin: 03/23/19 09:46 Dose: 30 mg Labetalol HCl (Normodyne -) 200 mg PO BID [facility] Last Admin: 03/23/19 09:45 Dose: 200 mg Losartan Potassium (Cozaar -) 50 mg PO DAILY [facility] Last Admin: 03/23/19 09:46 Dose: 50 mg Midodrine (Proamatine -) 2.5 mg PO TID-MID [facility] Last Admin: 03/23/19 14:48 Dose: 2.5 mg Nifedipine (Procardia Xl -) 60 mg PO DAILY [facility] Last Admin: 03/23/19 09:45 Dose: 60 mg 58 year old gentleman with history of GABI requiring dialysis ( now maintained on HD), CHF, DM, Hypertension who presented from home with fall/ near syncope and N/V. 1. Presyncope due to suspected hypovolemia 2. ESRD on HD 3. Hx of CHF 4. Hypertension 5. DM Type 2 toleated dialysis well this am Renal diet, 1.2L fluid restriction continue Midodrine 2.5mg DQ8h if bp trends back up after dialysis can consider titrating up Losartan or nifedpine ER Thank you Mansoor Beck DO
[2019-03-23 17:58] VITALS: BP 133/68; PULSE 79; TEMP 97.8
--- NOTE | 2019-03-23 23:00 | DS ---
Physical Exam: SUBJECTIVE: 58 y/o male with PMH ESRD (on HD TuThSa via RIGHT Permacath, last HD on Friday, see's Dr. Quiroz), CAD (s/p 2 FER in 2018 on ASA/Clopidogrel), CHF (Last EF 09/22 40-45%), CVA (2018), DMII, HTN, HLD whom presented with dizziness and vomiting and admitted for recurring dizziness s/p initiation of dialysis. He denies any further episodes of vomiting and has no more abdominal pain; says PPI provides great relief. Pt states he started dialysis 8 weeks ago. After his dialysis sessions, he describes that standing elicits weak knees, vision darkening, and the room spinning around him. HD performed and pt dizzy. Otherwise, symptoms are no longer present today. OBJECTIVE: Vital Signs Period Temp Pulse Resp BP Sys/Lopez Pulse Ox Last 24 Hr 97.8 F-98.5 F 72-118 18-18 92-195/59-102 PHYSICAL EXAM GENERAL: AOx3, in no acute distress. HEAD: NCAT EYES: Exopthalmos. MICHELLE, EOMI, conjunctiva clear. ENT: Ears normal, nares patent, oropharynx clear without exudates. Moist mucous membranes. NECK: Normal range of motion, supple without lymphadenopathy, JVD, or masses. LUNGS: CTAB. No wheezes, and no crackles. No accessory muscle use. HEART: RRR s1 s2 ABDOMEN: Soft, BS present in all 4 quadrants, non-distended, no JVD, MUSCULOSKELETAL: No bony deformities or tenderness. No CVA tenderness. UPPER EXTREMITIES: 2+ pulses, warm, well-perfused. No cyanosis. No clubbing. No peripheral edema. LOWER EXTREMITIES: 2+ pulses, warm, well-perfused. No calf tenderness. No peripheral edema. NEUROLOGICAL: Cranial nerves II-XII intact. Normal speech. Gait not appreciated. PSYCHIATRIC: Flat affect. Cooperative. Fair eye contact. Appropriate mood and affect. SKIN: Warm, dry, normal turgor, no rashes or lesions noted, normal capillary refill. LABS Laboratory Results - last 24 hr 03/22/19 03/23/19 03/23/19 23:25 05:10 05:10 WBC 5.7 RBC 3.67 L Hgb 10.7 L Hct 32.1 L MCV 87.5 MCH 29.0 MCHC 33.2 RDW 13.3 Plt Count 279 MPV 7.2 L Absolute Neuts (auto) 3.3 Neutrophils % 57.4 Lymphocytes % 25.5 Monocytes % 10.7 H Eosinophils % 5.1 H Basophils % 1.3 Nucleated RBC % 0 Sodium 139 Potassium 4.4 Chloride 102 Carbon Dioxide 28 Anion Gap 9 BUN 94.5 H Creatinine 5.0 H Est GFR (CKD-EPI)AfAm 13.77 Est GFR (CKD-EPI)NonAf 11.88 POC Glucometer 134 Random Glucose 104 Calcium 8.1 L Phosphorus 5.6 H Magnesium 2.1 Total Bilirubin 0.5 AST 33 ALT 76 H Alkaline Phosphatase 97 Total Protein 6.8 Albumin 2.9 L TSH 2.41 D Free T4 0.86 03/23/19 03/23/19 03/23/19 05:45 12:31 18:21 WBC RBC Hgb Hct MCV MCH MCHC RDW Plt Count MPV Absolute Neuts (auto) Neutrophils % Lymphocytes % Monocytes % Eosinophils % Basophils % Nucleated RBC % Sodium Potassium Chloride Carbon Dioxide Anion Gap BUN Creatinine Est GFR (CKD-EPI)AfAm Est GFR (CKD-EPI)NonAf POC Glucometer 110 199 166 Random Glucose Calcium Phosphorus Magnesium Total Bilirubin AST ALT Alkaline Phosphatase Total Protein Albumin TSH Free T4 HOSPITAL COURSE: Date of Admission:03/22/19 58 y/o male with PMH ESRD (on HD TuThSa via RIGHT Permacath, last HD on Friday , see's Dr. Quiroz), CAD (s/p 2 FER in 2018 on ASA/Clopidogrel), CHF (Last EF 40-45%), CVA (2018), DMII, HTN, HLD whom presented with dizziness and vomiting and admitted for recurring dizziness s/p initiation of dialysis. He is a known pt to Dr. Quiroz and was seen by this [employer] consultant during the admission. He was given PPI and denied any further episodes of vomiting and no more abdominal pain. Pt states he started dialysis 8 weeks prior to admission. After his dialysis sessions, he describes that standing elicits weak knees, vision darkening, and the room spinning around him. Pt found to be orthostatic hypotension (+) and HCTZ and tamsulosin held. Pt was advised to continue holding HCTZ on dialysis days. Midodrine 2.5 PO TID was added. Outside of HD session, this regimen seemed to resolve chief complaints. Pt advised to follow up with PCP to r/o benign paroxysmal positional vertigo 2/2 description of room spinning. Vestibular rehab out-patient was discussed and the pt was not interested. Pt hasphysical exam finding of exopthalmos and TSH, free t4 ordered to r/o thyroid dysfunction. No goiter appreciated. Chronic conditions were treated with home regimen except DM, which required ISS and d/c home med. Pt walked with PT and required SNF for rehab. Pt refused on several occasions. Risks of returning home explained to pt in detail. Pt confirmed his desired to return home for his birthday. Date of Discharge: 03/23/19 Minutes to complete discharge: 40 Discharge Summary Reason For Visit: SYNCOPE Condition: Stable - Instructions Diet, Activity, Other Instructions: YOUR VISIT You came to the hospital because you were feeling lightheaded and dizzy. You were admitted to the hospital for care of these symptoms. You received IV hydration, your medications were adjusted, and your symptoms improved. You also received hemodialysis during your stay. We recommend that you continue your rehabilitation at a [place] [facility] facility. However, you have refused this service and being discharged home after discussion of all necessary safety precautions. MEDICATIONS Please continue to take your home medications as prescribed Medication *changes*: - Before dialysis, please do not take that day's dose of HCTZ. Monitor your blood pressure closely and keep a log of your readings. ADDITIONAL CARE Follow up with the following physicians: 1. PCP () in one week, please call to schedule follow up. YOU MUST FOLLOW UP WITH YOUR PCP ON FRIDAY FOR A BLOOD PRESSURE CHECK. 2. Nephrology (Dr. Quiroz) in one week to further manage your kidney disease; Please continue to attend dialysis as scheduled 3. Cardiology (Dr. Stewart) in two weeks. Your EKG reveals you have a prolonged QTc; if this number becomes to long it can cause heart arrhythmia. Please call his office to schedule an appointment, your work up is not complete until you do so. Please continue to monitor your diet as you need to intake less sugar and drink plenty of fluids. ADDITIONAL INFORMATION Please call 911 or come directly to the emergency department if you experience unusual headache, vision change, shortness of breath, chest pain, numbness, tingling, loss of alertness/awareness, loss of function, unusual bleeding or any alarming symptoms. Referrals: Waldemar Eid MD [Primary Care Provider] - Juan Stewart MD [Staff Physician] - Mansoor Quiroz MD [Staff Physician] - Disposition: HOME - Home Medications Comprehensive Discharge Medication List: Ambulatory Orders Ergocalciferol (Vitamin D2) [Vitamin D2] 50,000 unit PO WEEKLY 09/25/18 Aspirin [ASA -] 81 mg PO DAILY #30 tab.chew 11/20/18 Atorvastatin Ca [Lipitor] 40 mg PO HS #30 tablet 11/20/18 Clopidogrel Bisulfate [Plavix -] 75 mg PO DAILY #30 tablet 11/20/18 Finasteride [Proscar -] 5 mg PO DAILY #30 tablet 11/20/18 Isosorbide Mononitrate [Imdur -] 30 mg PO DAILY #30 tab.sr.24h 11/20/18 Tamsulosin HCl [Flomax] 0.4 mg PO DAILY #30 capsule 11/20/18 hydrALAZINE HCL [Apresoline -] 50 mg PO TID #90 tablet 11/20/18 Furosemide [Lasix -] 80 mg PO BID 01/23/19 Labetalol HCl [Normodyne -] 200 mg PO BID 01/23/19 Nifedipine ER [Procardia XL -] 60 mg PO DAILY 01/23/19 Glipizide [Glucotrol] 10 mg PO BID 03/19/19 Losartan Potassium [Cozaar -] 50 mg PO DAILY 03/19/19 Hydrochlorothiazide 50 mg PO DAILY 03/22/19 Midodrine HCl [Proamatine -] 2.5 mg PO TID 30 Days #90 tablet 03/23/19 This patient is new to me today: No Emergency Visit: No Critical Care patient: No - Discharge Referral Referred to [facility] Med P.C.: No ATTENDING PHYSICIAN STATEMENT I saw and evaluated the patient. I reviewed the resident's note and discussed the case with the resident. I agree with the resident's findings and plan as documented. SUBJECTIVE: OBJECTIVE: ASSESSMENT AND PLAN:
== END 2019-03-23 20:10 | disposition home or self-care (01) | DRG 241 ==
LOC: JER 01:38 → JERBED 07:14 → J2W 17:36 → OBSVTOIN 03-22 15:54
PROVIDERS: ADMIT Internal Medicine; ATTEND Internal Medicine
PROC: 5A1D70Z Performance of Urinary Filtration, Intermittent, Less than 6 Hours Per Day (ICD-10-PCS; principal; 2019-03-23)
DX: K29.70 Gastritis, unspecified, without bleeding (principal); I25.10 Atherosclerotic heart disease of native coronary artery without angina pectoris; J44.9 Chronic obstructive pulmonary disease, unspecified; E78.5 Hyperlipidemia, unspecified; D64.9 Anemia, unspecified; E86.1 Hypovolemia; R11.2 Nausea with vomiting, unspecified; N40.0 Benign prostatic hyperplasia without lower urinary tract symptoms; I13.2 Hypertensive heart and chronic kidney disease with heart failure and with stage 5 chronic kidney disease, or end stage renal disease; E11.22 Type 2 diabetes mellitus with diabetic chronic kidney disease; N18.6 End stage renal disease; I50.22 Chronic systolic (congestive) heart failure; I45.81 Long QT syndrome; I95.1 Orthostatic hypotension; Z86.73 Personal history of transient ischemic attack (TIA), and cerebral infarction without residual deficits; Z95.5 Presence of coronary angioplasty implant and graft; Z99.2 Dependence on renal dialysis; Z89.422 Acquired absence of other left toe(s)
CPT/HCPCS: 36415; 70450-TC; 71045-TC-FY; 80053; 81003; 82962; 83735; 83880; 84100; 84439; 84443; 84484; 85025; 86803; 87340; 93005; 93010; 93306-TC; 97116-GP; 97161-GP; 99283-25; G0378; J1644

== ENCOUNTER 2019-03-25 19:49 | Inpatient (IN) | payer OTHER ==
--- NOTE | 2019-03-25 19:58 | PDOC ---
History of Present Illness - General Stated Complaint: DIZZINESS Time Seen by Provider: 03/25/19 19:56 Past History - Past Medical History Allergies/Adverse Reactions: Allergies Allergy/AdvReac Type Severity Reaction Status Date / Time cashew nut Allergy Verified 03/25/19 20:05 Home Medications: Ambulatory Orders Ergocalciferol (Vitamin D2) [Vitamin D2] 50,000 unit PO WEEKLY 09/25/18 Aspirin [ASA -] 81 mg PO DAILY #30 tab.chew 11/20/18 Atorvastatin Ca [Lipitor] 40 mg PO HS #30 tablet 11/20/18 Clopidogrel Bisulfate [Plavix -] 75 mg PO DAILY #30 tablet 11/20/18 Finasteride [Proscar -] 5 mg PO DAILY #30 tablet 11/20/18 Isosorbide Mononitrate [Imdur -] 30 mg PO DAILY #30 tab.sr.24h 11/20/18 Tamsulosin HCl [Flomax] 0.4 mg PO DAILY #30 capsule 11/20/18 hydrALAZINE HCL [Apresoline -] 50 mg PO TID #90 tablet 11/20/18 Furosemide [Lasix -] 40 mg PO BID 01/23/19 Labetalol HCl [Normodyne -] 200 mg PO BID 01/23/19 Nifedipine ER [Procardia XL -] 30 mg PO DAILY 01/23/19 Glipizide [Glucotrol] 5 mg PO BID 03/19/19 Losartan Potassium [Cozaar -] 50 mg PO DAILY 03/19/19 Hydrochlorothiazide 50 mg PO DAILY 03/22/19 Midodrine HCl [Proamatine -] 2.5 mg PO TID 30 Days #90 tablet 03/23/19 Metolazone [Zaroxolyn -] 5 mg PO DAILY 03/25/19 Pantoprazole Sodium [Protonix -] 40 mg PO BID 03/25/19 Ranitidine [Zantac -] 150 mg PO DAILY 03/25/19 Anemia: Yes Asthma: No Cancer: No Cardiac Disorders: Yes (STENT X2 year 2016) CVA: Yes COPD: No CHF: Yes Dementia: No Diabetes: Yes GI Disorders: No Disorders: Yes (renal dialysis) HTN: Yes Hypercholesterolemia: Yes Liver Disease: No Seizures: Yes (states blood sugar sugar was elevated) Thyroid Disease: No - Surgical History Cardiac Surgery: Yes (STENT X2) Orthopedic Surgery: Yes - Immunization History Immunization Up to Date: Yes - Suicide/Smoking/Psychosocial Hx Smoking History: Never smoked Have you smoked in the past 12 months: No Hx Alcohol Use: No Drug/Substance Use Hx: Yes (quit, marijuana use 1990) Substance Use Type: None Hx Substance Use Treatment: No ED Treatment Course - LABORATORY CBC & Chemistry Diagram: 03/25/19 21:35 03/25/19 23:00 Medical Decision Making - Medical Decision Making HPI: 59yo M with PMH of CAD s/p 2 stents, ESRD (TuThSat), DM, HTN presenting with acute lightheadedness Patient had a full session of dialysis today and felt headache, neck pain, and "wooziness." He was given "20 and 20" of fluids which helped him feel better. Patient states this episode feels similar to the one he had last week when he syncopized. Patient was discharged from this hospital two days ago. Nearly all his dialysis sessions make him feel dizzy. No fevers, chills, chest pain, or shortness of breath. PCP: Dr. Eid Nephrology: Dr. Quiroz ROS: Constitutional: no fever, no chills HEENT: no throat pain, no dysphagia Cardiovascular: no chest pain, no palpitations Respiratory: no cough, no shortness of breath Gastrointestinal: no abdominal pain, no nausea Genitourinary: no dysuria, no hematuria Musculoskeletal: no myalgia, no arthralgia Skin: no rash, no itching Neurologic: +headache, +lightheadedness PE: General: Awake, alert, and fully oriented, in no acute distress Head: No signs of trauma Eyes: EOMI, sclera anicteric ENT: Moist mucus membranes Neck: Normal ROM, supple Lungs: Lungs clear, Normal breath sounds Cardio: Regular rhythm, S1 and S2 present Abdomen: Soft, nontender. No CVA tenderness. Extremities: Normal range of motion, Distal pulses present SKIN: Warm, Dry, normal turgor Neurologic: Cranial nerves II through XII grossly intact. Normal speech ED Course/MDM: DDX including but not limited to orthostatic hypotension, dialysis hypotension, ACS, PNA, UTI, anemia, metabolic derangement Labs, EKG, CXR 250cc fluids Orthostatics: Laying: BP 142/82, HR 77 Sitting: BP 131/73, HR 78 Standing: BP 108/74, HR 80, patient also felt dizzy and had to sit down 03/25/19 19:[address] Quiroz's service, ; awaiting callback 03/25/19 21:16 CBC WBC 7.8 K/mm3 (4.0-10.0) 03/25/19 21:35 RBC 3.58 M/mm3 (4.00-5.60) L 03/25/19 21:35 Hgb 10.4 GM/dL (11.7-16.9) L 03/25/19 21:35 Hct 31.6 % (35.4-49) L 03/25/19 21:35 MCV 88.2 fl (80-96) 03/25/19 21:35 MCH 29.1 pg (25.7-33.7) 03/25/19 21:35 MCHC 33.0 g/dl (32.0-35.9) 03/25/19 21:35 RDW 13.2 % (11.9-15.9) 03/25/19 21:35 Plt Count 212 K/MM3 (134-434) D 03/25/19 21:35 MPV 7.6 fl (7.5-11.1) 03/25/19 21:35 Absolute Neuts (auto) 5.8 K/mm3 (1.5-8.0) 03/25/19 21:35 Neutrophils % 74.6 % (42.8-82.8) D 03/25/19 21:35 Lymphocytes % 13.9 % (8-40) D 03/25/19 21:35 Monocytes % 8.4 % (3.8-10.2) 03/25/19 21:35 Eosinophils % 2.3 % (0-4.5) 03/25/19 21:35 Basophils % 0.8 % (0-2.0) 03/25/19 21:35 Nucleated RBC % 0 % (0-0) 03/25/19 21:35 No leukocytosis Hgb 10.4, at patient's baseline Pending chemistries and EKG CXR without acute pathology, my impression 03/25/19 21:[address] Quiroz who recommended Midodrine 2.5mg as patient tends to be fluid overloaded. It appears he receive 1L of fluids while at dialysis. EKG: rate 80, QTc 477, NSR 03/25/19 22:10 CMP Sodium 139 mmol/L (136-145) 03/25/19 23:00 Potassium 4.0 mmol/L (3.5-5.1) 03/25/19 23:00 Chloride 103 mmol/L (98-107) 03/25/19 23:00 Carbon Dioxide 29 mmol/L (21-32) 03/25/19 23:00 Anion Gap 7 MMOL/L (8-16) L 03/25/19 23:00 BUN 42.2 mg/dL (7-18) H 03/25/19 23:00 Creatinine 2.9 mg/dL (0.55-1.3) H 03/25/19 23:00 Est GFR (CKD-EPI)AfAm 26.42 03/25/19 23:00 Est GFR (CKD-EPI)NonAf 22.80 03/25/19 23:00 Random Glucose 217 mg/dL (74-106) H 03/25/19 23:00 Calcium 8.0 mg/dL (8.5-10.1) L 03/25/19 23:00 Total Bilirubin 0.5 mg/dL (0.2-1) 03/25/19 23:00 AST 34 U/L (15-37) 03/25/19 23:00 ALT 89 U/L (13-61) H 03/25/19 23:00 Alkaline Phosphatase 112 U/L (45-117) 03/25/19 23:00 Troponin I < 0.02 ng/ml (0.00-0.05) 03/25/19 23:00 Total Protein 7.3 g/dl (6.4-8.2) 03/25/19 23:00 Albumin 3.1 g/dl (3.4-5.0) L 03/25/19 23:00 Electrolytes unrmarkable BUN and Cr elevated as expected in this dialysis patient Tpn undetectable Patient got up from his stretcher. Reporting dizziness. There is no midodrine in the pyxis here in the ER; there is a delay in getting it from the pharmacy. 03/26/19 01:08 Patient received midodrine Patient unable to ambulate at baseline. He is not a safe discharge Plan for admission 03/26/19 01:[address] Hoffmann who accepted patient for admission under Dr. Garcia 03/26/19 02:06 *DC/Admit/Observation/Transfer Diagnosis at time of Disposition: Lightheaded - Discharge Dispostion Condition at time of disposition: Guarded Decision to Admit order: Yes - Referrals Referrals: Waldemar Eid MD [Primary Care Provider] - - Patient Instructions - Post Discharge Activity
[2019-03-25] MEDS ORDERED: SODIUM CHLORIDE 250 ML IV STA (20:43)
--- NOTE | 2019-03-25 21:42 | PDOC ---
Attending Attestation - Resident Resident Name: Rita Harrison - ED Attending Attestation I have performed the following: I have examined & evaluated the patient, The case was reviewed & discussed with the resident, I agree w/resident's findings & plan, Exceptions are as noted - HPI HPI: 03/25/19 21:42 59M pmh of DM, HTN, CHF, CAD s/p stents, ESRD HD tts starting 2 months ago, here with dizziness immediately after his dialysis today, reports that he consistently has symptoms after dialysis and is frustrated that no one has told him the cause. He was discharged 2 days ago after inpatient evaluation of same complaint, an effective regimen was established before discharge. Patient states that after dialysis today he is feeling the room spinning dizziness when he stands. - Physicial Exam PE: 03/26/19 01:04 Agree with exam as documented by resident - Medical Decision Making 03/26/19 01:04 Consider hypovolemia, arrythmia, acs, hypotension 2/2 hd, orthostasis f/u labs, ekg dispo per clinical course Symptoms persistent after midodrine per renal recs admit for further management
[2019-03-25 21:51] LABS: BASO % 0.8 % (0-2.0); EOS % 2.3 % (0-4.5); HEMATOCRIT 31.6 % (35.4-49); HEMOGLOBIN 10.4 GM/dL (11.7-16.9); LYMPH % 13.9 % (8-40); MCH 29.1 pg (25.7-33.7); MEAN CELL VOLUME 88.2 fl (80-96); MEAN PLT VOLUME 7.6 fl (7.5-11.1); MONO % 8.4 % (3.8-10.2); NEUT % 74.6 % (42.8-82.8); PLATELET COUNT 212 K/MM3 (134-434); RBC 3.58 M/mm3 (4.00-5.60); RDW 13.2 % (11.9-15.9); WHITE BLOOD COUNT 7.8 K/mm3 (4.0-10.0)
[2019-03-25 23:31] LABS: ALBUMIN 3.1 g/dl (3.4-5.0); BILIRUBIN,TOTAL 0.5 mg/dL (0.2-1); BLOOD UREA NITROGEN 42.2 mg/dL (7-18); CREATININE 2.9 mg/dL (0.55-1.3); TOT PROT 7.3 g/dl (6.4-8.2)
[2019-03-25] MEDS ORDERED: MIDODRINE HCL 2.5 MG TABLET PO ONE (23:44)
[2019-03-26 01:23] LABS: EPI CELLS 3.5 /HPF (0-5/HPF); HYALINE CASTS 25 /lpf (0-8); URINE APPEARANCE CLEAR; URINE BACTERIA 0 /hpf (NEGATIVE); URINE BILIRUBIN NEGATIVE (NEGATIVE); URINE COLOR YELLOW; URINE GLUCOSE (UA) 1+ (NEGATIVE); URINE KETONE NEGATIVE (NEGATIVE); URINE LEUK ESTERASE NEGATIVE (NEGATIVE); URINE NITRITE NEGATIVE (NEGATIVE); URINE PROTEIN 4+ (NEGATIVE); URINE WBC 2 /hpf (0-5)
[2019-03-26 01:31] LABS: URINE RBC 13 /hpf (0-4)
--- NOTE | 2019-03-26 02:39 | PN ---
Teaching Attending Note Name of Resident: Atul Flower ATTENDING PHYSICIAN STATEMENT I saw and evaluated the patient. I reviewed the resident's note and discussed the case with the resident. I agree with the resident's findings and plan as documented. SUBJECTIVE: 59M pmh of DM, HTN, CHF, CAD s/p stents, anemia, ESRD on HD through right permacath- tts starting 2-3 months ago with dizziness immediately after his dialysis yesterday. Patient reports feeling lightheaded after every dialysis. He is noted to be on hctz and furosemide. +orthostatics. OBJECTIVE: Last Vital Signs Temp Pulse Resp BP Pulse Ox 97.8 F 77 20 125/84 100 03/25/19 19:55 03/25/19 19:55 03/25/19 19:55 03/25/19 19:55 03/25/19 19:55 general -nad, appears HEENT- Neck supple CV -s1+s2+ RRR Chest clear , right chest permacath abd- soft, bs+ ext- left foot s/p hallux amputation, plantar ulcer Abnormal Lab Results 03/25/19 03/25/19 03/25/19 01:00 21:35 23:00 RBC 3.58 L Hgb 10.4 L Hct 31.6 L Anion Gap 7 L BUN 42.2 H Creatinine 2.9 H Random Glucose 217 H Calcium 8.0 L ALT 89 H Albumin 3.1 L Urine Protein 4+ H Urine Glucose (UA) 1+ H ASSESSMENT AND PLAN: #Dizzines after dialysis- +orthostatics. Probably overdiuresed since is on furosemide and hydrochlorothiazide. EKG was normal. -med/surg -check orthostatics -stop diuretics -renal consult for HD -monitor i/o -daily weights -bed rest -fall precautions #left foot ulcer - from PVD? Does not appear grossly infected. -xray of foot- r//o periosteal elevation -esr -restart on home meds -dvt ppx -see resident note for details
--- NOTE | 2019-03-26 02:52 | HP ---
CHIEF COMPLAINT: Episode of dizziness after a session of HD today at 7PM PCP: Dr. Eid HISTORY OF PRESENT ILLNESS: This is a 59 year old male with PMH significant for ESRD (on HD TuThSa via RIGHT Permacath, last HD on Friday, Dr. Quiroz), CAD (s/p 2 FER in 2017 on ASA/ Clopidogrel), CHF (Last EF 03/25 55%), CVA (2018), DM (Glipizide), HTN, HLD. He presented to the ER with complaints of an episode of dizziness after a session of HD today at 7PM. He states that he was undergoing dialysis and began to feel nauseated and dizzy in his chair, after dialysis was completed and he got up, his symptoms worsened and he was brought to [facility]. He reports that he felt like his head was spinning, but the room was not spinning, and he had associated frontal headache. He also endorses increased quantity (but not frequency) of urination for the past few days, which he attributes to dialysis, without any associated dysuria, urinary urgency, burning micturation, or hematuria. He did not report any LOC, falls, fever, chills, SOB, chest pain, vision changes, vomiting, diarrhea, constipation, or cough. He states that he only has these symptoms during and after dialysis, which he started approximately 2-3 months ago. He had a similar episode on the this month, and was admitted to [facility] for 3 days. He was admitted for recurring dizziness s/p dialysis. His CT showed no acute pathology, and Echo showed EF of 55%. He was advised to discontinue HCTZ and Tamsulosin, and was prescribed Midodrine 2.5 PO TID. He claims to have stopped taking HCTZ and Tamsulosin after he was D/Rickie. He was advised SNF for rehab, which he refused. ER course was notable for: (1) Called Dr. Quiroz, Midodrone 2.5 mg administered (2) N/S 250ml administered (3) EKG unchanged since previous admission Recent Travel: None PAST MEDICAL HISTORY: ESRD: on HD TuThSa via RIGHT Permacath, last HD on 03/25, Dr. Quiroz CAD: s/p 2 drug eluding stents in 2018 on ASA/Clopidogrel CHF: Last EF 09/19 55% CVA: 2018 DM: On Glipizide, amputation of left big toe done 2 years ago, Dr Ponce. Checks BG 2-3 times a day, ranges between 95-135. Has one ulcer on base of big toe HTN: HCTZ stopped after previous admission. 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 Social History: Smoking: none Alcohol: last drink was in 1990 Drugs: none Allergies cashew nut Allergy (Verified 03/25/19 20:05) HOME MEDICATIONS: Home Medications Medication Instructions Recorded Ergocalciferol (Vitamin D2) 50,000 unit PO WEEKLY 09/25/18 [Vitamin D2] Aspirin [ASA -] 81 mg PO DAILY #30 tab.chew 11/20/18 Atorvastatin Ca [Lipitor] 40 mg PO HS #30 tablet 11/20/18 Clopidogrel Bisulfate [Plavix -] 75 mg PO DAILY #30 tablet 11/20/18 Finasteride [Proscar -] 5 mg PO DAILY #30 tablet 11/20/18 Isosorbide Mononitrate [Imdur -] 30 mg PO DAILY #30 tab.sr.24h 11/20/18 Tamsulosin HCl [Flomax] 0.4 mg PO DAILY #30 capsule 11/20/18 hydrALAZINE HCL [Apresoline -] 50 mg PO TID #90 tablet 11/20/18 Furosemide [Lasix -] 40 mg PO BID 01/23/19 Labetalol HCl [Normodyne -] 200 mg PO BID 01/23/19 Nifedipine ER [Procardia XL -] 30 mg PO DAILY 01/23/19 Glipizide [Glucotrol] 5 mg PO BID 03/19/19 Losartan Potassium [Cozaar -] 50 mg PO DAILY 03/19/19 Hydrochlorothiazide 50 mg PO DAILY 03/22/19 Midodrine HCl [Proamatine -] 2.5 mg PO TID 30 Days #90 tablet 03/23/19 Metolazone [Zaroxolyn -] 5 mg PO DAILY 03/25/19 Pantoprazole Sodium [Protonix -] 40 mg PO BID 03/25/19 Ranitidine [Zantac -] 150 mg PO DAILY 03/25/19 REVIEW OF SYSTEMS CONSTITUTIONAL: Absent: fever, chills, diaphoresis, generalized weakness, malaise, loss of appetite, weight change HEENT: Absent: rhinorrhea, nasal congestion, throat pain, throat swelling, difficulty swallowing, mouth swelling, ear pain, eye pain, visual changes CARDIOVASCULAR: Absent: chest pain, syncope, palpitations, irregular heart rate, lightheadedness , peripheral edema RESPIRATORY: Absent: cough, shortness of breath, dyspnea with exertion, orthopnea, wheezing, stridor, hemoptysis GASTROINTESTINAL: Absent: abdominal pain, abdominal distension, nausea, vomiting, diarrhea, constipation, melena, hematochezia GENITOURINARY: Absent: dysuria, frequency, urgency, hesitancy, hematuria, flank pain, genital pain MUSCULOSKELETAL: Absent: myalgia, arthralgia, joint swelling, back pain, neck pain SKIN: Absent: rash, itching, pallor HEMATOLOGIC/IMMUNOLOGIC: Absent: easy bleeding, easy bruising, lymphadenopathy, frequent infections ENDOCRINE: Absent: unexplained weight gain, unexplained weight loss, heat intolerance, cold intolerance NEUROLOGIC: headache, dizziness Absent: headache, focal weakness or paresthesias, dizziness, unsteady gait, seizure, mental status changes, bladder or bowel incontinence PSYCHIATRIC: Absent: anxiety, depression, suicidal or homicidal ideation, hallucinations. PHYSICAL EXAMINATION Vital Signs - 24 hr 03/25/19 19:55 Temperature 97.8 F Pulse Rate 77 Respiratory 20 Rate Blood Pressure 125/84 O2 Sat by Pulse 100 Oximetry (%) Orthostatic Vitals: SUPINE 142/82 (HR 77) SEATED 131/73 (HR 78) STANDING 108/74 (HR 80) GENERAL: Awake, alert, and fully oriented, in no acute distress. HEAD: Normal with no signs of trauma. EYES: DANIEL, EOM, No nystagmus EARS, NOSE, THROAT: Ears normal, nares patent, oropharynx clear without exudates. Moist mucous membranes. NECK: Normal range of motion, supple without lymphadenopathy, JVD, or masses. LUNGS: Breath sounds equal, clear to auscultation bilaterally. No wheezes, and no crackles. No accessory muscle use. HEART: Regular rate and rhythm, normal S1 and S2 without murmur, rub or gallop. ABDOMEN: Soft, nontender, not distended, normoactive bowel sounds, no guarding, no rebound, no masses. No hepatomegaly or splenomegaly. MUSCULOSKELETAL: Normal range of motion at all joints. No bony deformities or tenderness. No CVA tenderness. UPPER EXTREMITIES: 2+ pulses, warm, well-perfused. No cyanosis. No clubbing. No peripheral edema, left thumb partial amputation LOWER EXTREMITIES: Left toe amputated NEUROLOGICAL: Motor 5/5 Sensory weak in right foot, intact everywhere else, CN II-XII intact, SIVAKUMAR normal, F2N normal PSYCHIATRIC: Cooperative. Good eye contact. Appropriate mood and affect. SKIN: Warm, dry, normal turgor, no rashes or lesions noted, normal capillary refill. Laboratory Results - last 24 hr 03/25/19 03/25/19 03/25/19 01:00 21:35 21:35 WBC 7.8 RBC 3.58 L Hgb 10.4 L Hct 31.6 L MCV 88.2 MCH 29.1 MCHC 33.0 RDW 13.2 Plt Count 212 D MPV 7.6 Absolute Neuts (auto) 5.8 Neutrophils % 74.6 D Lymphocytes % 13.9 D Monocytes % 8.4 Eosinophils % 2.3 Basophils % 0.8 Nucleated RBC % 0 Sodium Cancelled Potassium Cancelled Chloride Cancelled Carbon Dioxide Cancelled Anion Gap Cancelled BUN Cancelled Creatinine Cancelled Est GFR (CKD-EPI)AfAm Cancelled Est GFR (CKD-EPI)NonAf Cancelled Random Glucose Cancelled Calcium Cancelled Total Bilirubin Cancelled AST Cancelled ALT Cancelled Alkaline Phosphatase Cancelled Troponin I Cancelled Total Protein Cancelled Albumin Cancelled Urine Color Yellow Urine Appearance Clear Urine pH 6.0 Ur Specific [place] 1.020 Urine Protein 4+ H Urine Glucose (UA) 1+ H Urine Ketones Negative Urine Blood Trace Urine Nitrite Negative Urine Bilirubin Negative Urine Urobilinogen 1.0 Ur Leukocyte Esterase Negative Urine WBC (Auto) 2 Urine RBC (Auto) 13 Urine Casts (Auto) 25 U Pathogenic Cast Auto None seen U Epithel Cells (Auto) 3.5 Urine Bacteria (Auto) 0 03/25/19 03/25/19 23:00 23:00 WBC RBC Hgb Hct MCV MCH MCHC RDW Plt Count MPV Absolute Neuts (auto) Neutrophils % Lymphocytes % Monocytes % Eosinophils % Basophils % Nucleated RBC % Sodium 139 Potassium 4.0 Chloride 103 Carbon Dioxide 29 Anion Gap 7 L BUN 42.2 H Creatinine 2.9 H Est GFR (CKD-EPI)AfAm 26.42 Est GFR (CKD-EPI)NonAf 22.80 Random Glucose 217 H Calcium 8.0 L Total Bilirubin 0.5 AST 34 ALT 89 H Alkaline Phosphatase 112 Troponin I < 0.02 Total Protein 7.3 Albumin 3.1 L Urine Color Urine Appearance Urine pH Ur Specific [place] Urine Protein Urine Glucose (UA) Urine Ketones Urine Blood Urine Nitrite Urine Bilirubin Urine Urobilinogen Ur Leukocyte Esterase Urine WBC (Auto) Urine RBC (Auto) Urine Casts (Auto) U Pathogenic Cast Auto U Epithel Cells (Auto) Urine Bacteria (Auto) ASSESSMENT/PLAN: This is a 59 year old male with PMH significant for ESRD (on HD TuThSa via RIGHT Permacath, last HD on Friday, Dr. Quiroz), CAD (s/p 2 FER in 2018 on ASA/ Clopidogrel), CHF (Last EF 03/25 55%), CVA (2018), DM (Glipizide), HTN, HLD. He presented to the ER with complaints of an episode of dizziness after a session of HD today at 7PM. #Repeated episodic dizziness after HD session - Orthostatic Vitals positive: SUPINE 142/82 (HR 77) SEATED 131/73 (HR 78) STANDING 108/74 (HR 80) - Likely overdiuresed, on furosemide 80mg and hydrochlorothiazide at home - Hold lasix, hctz, tamsulosin - Nephro (Dr. Quiroz) consulted - Monitor I/Os and daily weights #Hx of DM with left foot ulcer - Xray foot ordered - ESR ordered - Wound car (Dr. Ponce) consulted #FEN - Regular diet Visit type - Emergency Visit Emergency Visit: Yes ED Registration Date: 03/26/19 Care time: The patient presented to the Emergency Department on the above date and was hospitalized for further evaluation of their emergent condition. - New Patient This patient is new to me today: Yes Date on this admission: 03/26/19 - Critical Care Critical Care patient: No ATTENDING PHYSICIAN STATEMENT I saw and evaluated the patient. I reviewed the resident's note and discussed the case with the resident. I agree with the resident's findings and plan as documented. SUBJECTIVE: OBJECTIVE: ASSESSMENT AND PLAN:
[2019-03-26] MEDS ORDERED: hydrALAZINE HCL 25 MG TABLET (FP) ONE ×2 (06:14→16:25)
[2019-03-26] MEDS: hydrALAZINE HCL 50 MG TABLET (FP) PO SCH ×3 (06:23→21:33)
[2019-03-26 07:37] LABS: BASO % 1.2 % (0-2.0); EOS % 4.3 % (0-4.5); HEMATOCRIT 32.1 % (35.4-49); HEMOGLOBIN 10.4 GM/dL (11.7-16.9); MCHC 32.5 g/dl (32.0-35.9); MEAN CELL VOLUME 89.2 fl (80-96); MEAN PLT VOLUME 7.4 fl (7.5-11.1); MONO % 10.4 % (3.8-10.2); NEUT % 55.1 % (42.8-82.8); PLATELET COUNT 215 K/MM3 (134-434); RDW 13.1 % (11.9-15.9); WHITE BLOOD COUNT 5.8 K/mm3 (4.0-10.0)
[2019-03-26 08:09] LABS: BILIRUBIN,TOTAL 0.6 mg/dL (0.2-1); BLOOD UREA NITROGEN 51.2 mg/dL (7-18); CALCIUM 7.9 mg/dL (8.5-10.1); CREATININE 3.1 mg/dL (0.55-1.3); POTASSIUM 4.1 mmol/L (3.5-5.1); TOT PROT 7.2 g/dl (6.4-8.2)
[2019-03-26] MEDS ORDERED: MIDODRINE HCL 2.5 MG TABLET PO ONE (10:00)
[2019-03-26] MEDS ORDERED: ERGOCALCIFEROL (VIT D2) 50,000 UNIT (1.25 MG) CAPSULE PO SCH (10:00)
[2019-03-26] MEDS: ASPIRIN 81 MG CHEWABLE TABLETS PO SCH (10:12)
[2019-03-26] MEDS: LOSARTAN POTASSIUM 50 MG TABLET (FP) PO SCH (10:12)
[2019-03-26] MEDS: FINASTERIDE 5 MG TABLET (FP) PO SCH (10:12)
[2019-03-26] MEDS: CLOPIDOGREL BISULFATE 75 MG TABLET (FP) PO SCH (10:12)
[2019-03-26] MEDS: MIDODRINE HCL 2.5 MG TABLET PO SCH ×3 (10:12→21:45)
[2019-03-26] MEDS: LABETALOL HCL 100 MG TABLET (FP) PO SCH ×2 (10:12→21:33)
[2019-03-26] MEDS: NIFEdipine E.R 60 MG TABLET (UD) PO SCH (10:12)
[2019-03-26 12:30] LABS: ERYTHROCYTE SEDIMENTATION RATE 38 mm/hr (0-20)
--- NOTE | 2019-03-26 13:49 | CONSULT ---
- Consultation REQUESTING PROVIDER: CONSULT REQUEST: We have been asked to surgically evaluate this patient for left foot callus. PCP:Елена Norton HISTORY OF PRESENT ILLNESS: 59 y/o M w/ PMHx ESRD (on HD TuThSa via RIGHT Permacath, Dr. 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 Vascular consulted for L foot ulcer. Pt reports he had a callus which was debrided by Dr Ponce in wound care a few months back. Reports the wound was closed, however opened a few weeks ago due to ambulating barefoot within his home (believes loose tiles in his bathroom opened his wound) . Has not seen Dr Ponce since the wound opened. States he has been applying a medicated cream given to him by Dr Ponce previously. Denies any drainage, fevers , n/v/d, cp/sob. Reports he ambulates unlimited blocks without issue. Has sob when walking uphill. Denies h/o tobacco abuse. Does not have a DPM or diabetic shoes. PMHx: as above PSHx: as above Home Medications Medication Instructions Recorded Ergocalciferol (Vitamin D2) 50,000 unit PO WEEKLY 09/25/18 [Vitamin D2] Aspirin [ASA -] 81 mg PO DAILY #30 tab.chew 11/20/18 Atorvastatin Ca [Lipitor] 40 mg PO HS #30 tablet 11/20/18 Clopidogrel Bisulfate [Plavix -] 75 mg PO DAILY #30 tablet 11/20/18 Finasteride [Proscar -] 5 mg PO DAILY #30 tablet 11/20/18 Isosorbide Mononitrate [Imdur -] 30 mg PO DAILY #30 tab.sr.24h 11/20/18 Tamsulosin HCl [Flomax] 0.4 mg PO DAILY #30 capsule 11/20/18 hydrALAZINE HCL [Apresoline -] 50 mg PO TID #90 tablet 11/20/18 Furosemide [Lasix -] 80 mg PO BID 01/23/19 Labetalol HCl [Normodyne -] 200 mg PO BID 01/23/19 Nifedipine ER [Procardia XL -] 60 mg PO DAILY 01/23/19 Glipizide [Glucotrol] 10 mg PO BID 03/19/19 Losartan Potassium [Cozaar -] 50 mg PO DAILY 03/19/19 Hydrochlorothiazide 50 mg PO DAILY 03/22/19 Midodrine HCl [Proamatine -] 2.5 mg PO TID 30 Days #90 tablet 03/23/19 Allergies Allergy/AdvReac Type Severity Reaction Status Date / Time cashew nut Allergy Verified 03/25/19 20:05 REVIEW OF SYSTEMS: CONSTITUTIONAL: Absent: fever, chills CARDIOVASCULAR: Absent: chest pain, syncope, palpitations RESPIRATORY: Absent: cough, shortness of breath GASTROINTESTINAL: Absent: abdominal pain PHYSICAL EXAM: GENERAL: Awake, alert, and fully oriented, in no acute distress. HEAD: Normal with no signs of trauma. LOWER EXTREMITIES: R foot with no ulcers or wounds. L foot with well healed 1st metatarsal amputation, approx 1.5x1.5cm raised circular callus over 2nd met head on plantar surface. Callus tracks approx 1cm, no drainage, no erythema noted. No ttp. Vasc: 2+ fem b/l, pop not appreciated b/l, R PT 2+, biphasic doppler signal on dp, L PT biphasic, no dp (not a new finding) Vital Signs Temperature 98.1 F 03/26/19 11:20 Pulse Rate 83 03/26/19 11:20 Respiratory Rate 18 03/26/19 10:10 Blood Pressure 159/86 03/26/19 11:20 O2 Sat by Pulse Oximetry (%) 97 03/26/19 11:20 Lab Results WBC 5.8 K/mm3 (4.0-10.0) 03/26/19 07:00 RBC 3.60 M/mm3 (4.00-5.60) L 03/26/19 07:00 Hgb 10.4 GM/dL (11.7-16.9) L 03/26/19 07:00 Hct 32.1 % (35.4-49) L 03/26/19 07:00 MCV 89.2 fl (80-96) 03/26/19 07:00 MCHC 32.5 g/dl (32.0-35.9) 03/26/19 07:00 RDW 13.1 % (11.9-15.9) 03/26/19 07:00 Plt Count 215 K/MM3 (134-434) 03/26/19 07:00 Sodium 140 mmol/L (136-145) 03/26/19 07:00 Potassium 4.1 mmol/L (3.5-5.1) 03/26/19 07:00 Chloride 105 mmol/L (98-107) 03/26/19 07:00 Carbon Dioxide 26 mmol/L (21-32) 03/26/19 07:00 Anion Gap 9 MMOL/L (8-16) 03/26/19 07:00 BUN 51.2 mg/dL (7-18) H 03/26/19 07:00 Creatinine 3.1 mg/dL (0.55-1.3) H 03/26/19 07:00 Random Glucose 67 mg/dL (74-106) L 03/26/19 07:00 Calcium 7.9 mg/dL (8.5-10.1) L 03/26/19 07:00 A/P: 59 y/o M w/ PMHx ESRD (on HD TuThSa via RIGHT Permacath, Dr. Quiroz), CAD (s /p 2 FER in 2018 on ASA/Clopidogrel), CHF (Last EF 03/25 55%), CVA (2018), DM ( Glipizide) c/b L great toe amputation (2018) due to infection/ gangrene, PAD (s/ p LLE [employer]OR atherectomy with angioplasty-single vessel runoff into foot), HTN, HLD a/w diiness after HD. Vascular consulted for L foot ulcer. L foot with chronic noninfected callus -No acute vascular intervention at this time -Consider Podiatry consult as pt does not have a Housekeeper Child Care and would benefit from initiation of care (Diabetic offloading shoes, etc) -Keep callus covered with dry 4x4s -Pt should f/u with Dr Ponce in wound care upon d/c d/w attending Dr Watlers (Dr Ponce is away until Friday, Mar 29)
--- NOTE | 2019-03-26 14:23 | EKG ---
Test Reason : Blood Pressure : / mmHG Vent. Rate : 080 BPM Atrial Rate : 080 BPM P-R Int : 184 ms QRS Dur : 080 ms QT Int : 414 ms P-R-T Axes : 054 000 076 degrees QTc Int : 477 ms NORMAL SINUS RHYTHM NONSPECIFIC ST ABNORMALITY ABNORMAL ECG WHEN COMPARED WITH ECG OF 19-MAR-2019 02:13, NO SIGNIFICANT CHANGE WAS FOUND Confirmed by ELODIA KENNY MD ([id number]) on 03/26/2019 2:22:40 PM Referred By: Confirmed By:ELODIA KENNY MD
--- NOTE | 2019-03-26 14:36 | PN ---
Physical Exam: SUBJECTIVE: 58 y/o male with PMH ESRD (on HD TuThSa via RIGHT Permacath, last HD on Friday, see's Dr. Quiroz), CAD (s/p 2 FER in 2018 on ASA/Clopidogrel), CHF (Last EF 09/22 40-45%), CVA (2018), DMII, HTN, HLD whom presented with dizziness and unsteady gait admitted for recurring dizziness s/p initiation of dialysis. Pt was recently admitted for the same complaint. Pt refused dc to SNF. Pt interviewed in ED holding. He states he has continued symptoms of dizziness upon standing but especially at dialysis despite last visit's recommendation to hold HCTZ on dialysis days. These symptoms started dialysis 8 weeks ago. He describes that standing elicits weak knees, vision darkening, and the room spinning around him like he is, "on a wveth-sk-[id number]." He also c/o open lesion on plantar surface of LEFT foot. Pt is known to Dr. Ponce whom has been consulted this visit. He denies any LOC, JONES, SOB, CP and NVFD. OBJECTIVE: Vital Signs Period Temp Pulse Resp BP Sys/Lopez Pulse Ox Last 24 Hr 97.8 F-98.1 F 77-85 18-20 125-159/69-109 97-100 GENERAL: AOx3, in no acute distress. HEAD: NCAT EYES: Exopthalmos. MICHELLE, EOMI, conjunctiva clear. ENT: Ears normal, nares patent, oropharynx clear without exudates. Moist mucous membranes. NECK: Normal range of motion, supple without lymphadenopathy, JVD, or masses. LUNGS: CTAB. No wheezes, and no crackles. No accessory muscle use. HEART: RRR s1 s2 ABDOMEN: Soft, BS present in all 4 quadrants, non-distended, no JVD, MUSCULOSKELETAL: No bony deformities or tenderness. No CVA tenderness. UPPER EXTREMITIES: 2+ pulses, warm, well-perfused. No cyanosis. No clubbing. No peripheral edema. LOWER EXTREMITIES: LEFT great toe amputated, LEFT plantar surface lesion 1cm, round, not bleeding, no signs of infection. 2+ pulses, warm, well-perfused. No calf tenderness. No peripheral edema. NEUROLOGICAL: Cranial nerves II-XII intact. Normal speech. Gait not appreciated. PSYCHIATRIC: Cooperative. Fair eye contact. Appropriate mood and affect. SKIN: Warm, dry, normal turgor, no rashes or lesions noted, normal capillary refill. Laboratory Results - last 24 hr 03/25/19 03/25/19 03/25/19 01:00 21:35 21:35 WBC 7.8 RBC 3.58 L Hgb 10.4 L Hct 31.6 L MCV 88.2 MCH 29.1 MCHC 33.0 RDW 13.2 Plt Count 212 D MPV 7.6 Absolute Neuts (auto) 5.8 Neutrophils % 74.6 D Lymphocytes % 13.9 D Monocytes % 8.4 Eosinophils % 2.3 Basophils % 0.8 Nucleated RBC % 0 ESR Sodium Cancelled Potassium Cancelled Chloride Cancelled Carbon Dioxide Cancelled Anion Gap Cancelled BUN Cancelled Creatinine Cancelled Est GFR (CKD-EPI)AfAm Cancelled Est GFR (CKD-EPI)NonAf Cancelled Random Glucose Cancelled Calcium Cancelled Total Bilirubin Cancelled AST Cancelled ALT Cancelled Alkaline Phosphatase Cancelled Troponin I Cancelled Total Protein Cancelled Albumin Cancelled Urine Color Yellow Urine Appearance Clear Urine pH 6.0 Ur Specific [place] 1.020 Urine Protein 4+ H Urine Glucose (UA) 1+ H Urine Ketones Negative Urine Blood Trace Urine Nitrite Negative Urine Bilirubin Negative Urine Urobilinogen 1.0 Ur Leukocyte Esterase Negative Urine WBC (Auto) 2 Urine RBC (Auto) 13 Urine Casts (Auto) 25 U Pathogenic Cast Auto None seen U Epithel Cells (Auto) 3.5 Urine Bacteria (Auto) 0 03/25/19 03/25/19 03/26/19 23:00 23:00 07:00 WBC 5.8 RBC 3.60 L Hgb 10.4 L Hct 32.1 L MCV 89.2 MCH 29.0 MCHC 32.5 RDW 13.1 Plt Count 215 MPV 7.4 L Absolute Neuts (auto) 3.2 Neutrophils % 55.1 D Lymphocytes % 29.0 D Monocytes % 10.4 H Eosinophils % 4.3 D Basophils % 1.2 Nucleated RBC % 0 ESR 38 H Sodium 139 Potassium 4.0 Chloride 103 Carbon Dioxide 29 Anion Gap 7 L BUN 42.2 H Creatinine 2.9 H Est GFR (CKD-EPI)AfAm 26.42 Est GFR (CKD-EPI)NonAf 22.80 Random Glucose 217 H Calcium 8.0 L Total Bilirubin 0.5 AST 34 ALT 89 H Alkaline Phosphatase 112 Troponin I < 0.02 Total Protein 7.3 Albumin 3.1 L Urine Color Urine Appearance Urine pH Ur Specific [place] Urine Protein Urine Glucose (UA) Urine Ketones Urine Blood Urine Nitrite Urine Bilirubin Urine Urobilinogen Ur Leukocyte Esterase Urine WBC (Auto) Urine RBC (Auto) Urine Casts (Auto) U Pathogenic Cast Auto U Epithel Cells (Auto) Urine Bacteria (Auto) 03/26/19 07:00 WBC RBC Hgb Hct MCV MCH MCHC RDW Plt Count MPV Absolute Neuts (auto) Neutrophils % Lymphocytes % Monocytes % Eosinophils % Basophils % Nucleated RBC % ESR Sodium 140 Potassium 4.1 Chloride 105 Carbon Dioxide 26 Anion Gap 9 BUN 51.2 H Creatinine 3.1 H Est GFR (CKD-EPI)AfAm 24.38 Est GFR (CKD-EPI)NonAf 21.03 Random Glucose 67 L Calcium 7.9 L Total Bilirubin 0.6 AST 33 ALT 83 H Alkaline Phosphatase 100 Troponin I Total Protein 7.2 Albumin 3.0 L Urine Color Urine Appearance Urine pH Ur Specific [place] Urine Protein Urine Glucose (UA) Urine Ketones Urine Blood Urine Nitrite Urine Bilirubin Urine Urobilinogen Ur Leukocyte Esterase Urine WBC (Auto) Urine RBC (Auto) Urine Casts (Auto) U Pathogenic Cast Auto U Epithel Cells (Auto) Urine Bacteria (Auto) Active Medications Aspirin (Asa -) 81 mg PO DAILY [facility] Last Admin: 03/26/19 10:12 Dose: 81 mg Atorvastatin Calcium (Lipitor -) 40 mg PO HS [facility] Clopidogrel Bisulfate (Plavix -) 75 mg PO DAILY [facility] Last Admin: 03/26/19 10:12 Dose: 75 mg Ergocalciferol (Drisdol -) 50,000 unit PO Fr [facility] Last Admin: 03/26/19 10:12 Dose: 50,000 unit Finasteride (Proscar -) 5 mg PO DAILY [facility] Last Admin: 03/26/19 10:12 Dose: 5 mg Hydralazine HCl (Apresoline -) 50 mg PO TID [facility] Last Admin: 03/26/19 06:23 Dose: 50 mg Labetalol HCl (Normodyne -) 200 mg PO BID [facility] Last Admin: 03/26/19 10:12 Dose: 200 mg Losartan Potassium (Cozaar -) 50 mg PO DAILY [facility] Last Admin: 03/26/19 10:12 Dose: 50 mg Midodrine (Proamatine -) 2.5 mg PO TID-MID [facility] Last Admin: 03/26/19 10:12 Dose: 2.5 mg Nifedipine (Procardia Xl -) 60 mg PO DAILY [facility] Last Admin: 03/26/19 10:12 Dose: 60 mg ASSESSMENT/PLAN: 58 y/o male with PMH ESRD (on HD TuThSa via RIGHT Permacath, last HD on Friday , see's Dr. Quiroz), CAD (s/p 2 FER in 2018 on ASA/clopidogrel), CHF (Last EF 40-45%), CVA (2018), DMII, HTN, HLD whom presented with dizziness and vomiting and admitted for recurring dizziness s/p initiation of dialysis. # Dizziness - Re-test for orthostatic hypotension. Previously (+) - Pt refusing physical therapy - HCTZ, tamsulosin, and X and X held - Increase midodrine 2.5 PO TID to 5 mg PO TID - Cardio consulted regarding midodrine # R/o Benign paroxysmal positional vertigo - Describes room spinning - Vestibular rehab out-patient # LEFT plantar ulcer - Pt afebrile, hemodynamically stable - Vascular surgery consulted # ESRD - Dr. Quiroz following - Monitor for supine hypertension - Renal diet - Cont. regular HD schedule # CAD - Cont. home regimen of ASA 81 mg PO QD, lipitor 40 mg PO HS, isosorbide mononitrate 30 mg PO QD, clopidogrel 75 mg PO QD, and hydralazine 50 mg PO TID # Systolic CHF - Last ECHO 09/22 EF 40-45% - Cont. home regimen: Labetalol 200 mg PO BID, Lasix 80 mg PO BID # DM - Hold home regimen - ISS # HTN - Cont. home regimen: Lasix 80 mg PO BID, hydralazine 50 mg PO TID, Labetalol 200 mg PO BID, Losartan 50 mg PO QD, Nifedepine 60 mg PO QD, isosorbide mononitrate 30 mg PO QD # HLD - Cont. home regimen # BPH - Cont. finasteride - HOLD tamsulosin # F/E/N - No standing fluids - Cont. to monitor electrolytes - Low sodium diet with diabetic modification # DVT prophylaxis - Heparin # Dispo - Observation Paulo Reyez MD Visit type - Emergency Visit Emergency Visit: Yes ED Registration Date: 03/26/19 Care time: The patient presented to the Emergency Department on the above date and was hospitalized for further evaluation of their emergent condition. - New Patient This patient is new to me today: No - Critical Care Critical Care patient: No - Discharge Referral Referred to [facility] Med P.C.: No ATTENDING PHYSICIAN STATEMENT I saw and evaluated the patient. I reviewed the resident's note and discussed the case with the resident. I agree with the resident's findings and plan as documented. SUBJECTIVE: OBJECTIVE: ASSESSMENT AND PLAN:
--- NOTE | 2019-03-26 15:40 | PN ---
Progress Note (short form) - Note Progress Note: Renal follow up for ESRD on HD Mr. Prater was readmitted last night with dizziness after dialysis. His dizziness did not improve in the ER and was kept for observation. Seen in the ER. Denies any cp, sob, abd pain, fever or chills. No currnet dizziness. No further N/V. Making urine Vital Signs Temperature 98.1 F 03/26/19 11:20 Pulse Rate 83 03/26/19 11:20 Respiratory Rate 18 03/26/19 10:10 Blood Pressure 159/86 03/26/19 11:20 O2 Sat by Pulse Oximetry (%) 97 03/26/19 11:20 Intake & Output 03/23/19 03/24/19 03/25/19 03/26/19 23:59 23:59 23:59 23:59 Weight 97.522 kg NAD awake and alert neck supple RRR CTA soft NT/ND + LE edema CBC, BMP 03/26/19 07:00 03/26/19 07:00 Current Medications Aspirin (Asa -) 81 mg PO DAILY [facility] Last Admin: 03/26/19 10:12 Dose: 81 mg Atorvastatin Calcium (Lipitor -) 40 mg PO HS [facility] Clopidogrel Bisulfate (Plavix -) 75 mg PO DAILY [facility] Last Admin: 03/26/19 10:12 Dose: 75 mg Ergocalciferol (Drisdol -) 50,000 unit PO Fr [facility] Last Admin: 03/26/19 10:12 Dose: 50,000 unit Finasteride (Proscar -) 5 mg PO DAILY [facility] Last Admin: 03/26/19 10:12 Dose: 5 mg Hydralazine HCl (Apresoline -) 50 mg PO TID [facility] Last Admin: 03/26/19 06:23 Dose: 50 mg Labetalol HCl (Normodyne -) 200 mg PO BID [facility] Last Admin: 03/26/19 10:12 Dose: 200 mg Losartan Potassium (Cozaar -) 50 mg PO DAILY [facility] Last Admin: 03/26/19 10:12 Dose: 50 mg Midodrine (Proamatine -) 5 mg PO TID-MID [facility] Nifedipine (Procardia Xl -) 60 mg PO DAILY [facility] Last Admin: 03/26/19 10:12 Dose: 60 mg 58 year old gentleman with history of GABI requiring dialysis ( now maintained on HD), CHF, DM, Hypertension who presented from HD unit with dizziness. 1. Dizziness/Orthostatic hypotension 2. ESRD/GABI on HD 3. Anemia 4. Hypertension Continue midodrine at increase dose will plan for dialysis tomorrow, monitor for recurrence of symptoms continue RICHARD wtih HD continue labetalol, losartan, nifedpine Thank you Mansoor Cooper DO
--- NOTE | 2019-03-26 15:40 | PN ---
Teaching Attending Note Name of Resident: Paulo Reyez ATTENDING PHYSICIAN STATEMENT I saw and evaluated the patient. I reviewed the resident's note and discussed the case with the resident. I agree with the resident's findings and plan as documented. SUBJECTIVE:dizzzyness improved here but has not gotten out of the bed. dizzyness worse when getting out of bed and at the end of HD. states he has been using techniques explained last hospitalization about slowly getting up and claims compliance with midodrine. denies Cp, SOB, fever, chills, N/V/C/D OBJECTIVE: Last Vital Signs Temp Pulse Resp BP Pulse Ox 98.1 F 83 18 159/86 97 03/26/19 11:20 03/26/19 11:20 03/26/19 10:10 03/26/19 11:20 03/26/19 11:20 General NAD CV S1 S2 RRR no murmur/rub/gallop Lungs CTA B/L no wheezing/rales/rhonchi ASSESSMENT AND PLAN: 58 year old male with ESRD on HD, CAD s/p PCI/Stent, Chronic Systolic Heart Failure, HTN, HLD, DM 2, Hx CVA, presented with dizziness after recent hospitalization for similar symptoms where pt was started on midodrine wtih improvement 1. dizzyness- persistent with midodrine. will increase to 5mg TID, check orthostatics. will consult cardio for further recommendations. PT eval as refused last hospitalization. 2. ESRD on HD - resume regular schedule. nephro consult 3. CAD s/p PCI/Stent - Continue Aspirin, Plavix, Lipitor, Imdur, Ranexa. 4. HTN - continue Nifedipine, Labetalol, Hydralazine, Losartan, Lasix, Imdur. 5. Dyslipidemia - Continue Statin 6. Hx Chronic systolic heart failure - Echo 03/19 shows improved EF 55-60% - Continue BB, Lasix. 7. DM 2 - maintain on novolog sliding scale. 8. History of CVA - Continue aspirin, plavix, lipitor. 9. BPH - Continue Finasteride. Tamsulosin held. 10. DVT Px - Heparin SQ
[2019-03-26] MEDS ORDERED: SODIUM CHLORIDE 250 ML IV PRN (15:47)
--- NOTE | 2019-03-26 16:23 | CON.CARD ---
Cardiology Consult (text) - Consultation Consultation Note: Chief Complaint: dizzy History of Present Illness: 59M h/o DM, HTN, HLD, CAD s/p stents x2 in 2017, esrd on hd p/w dizziness.dyspnea. Sees Dr. Perez for cardio. Started HD couple mos ago and has been having frequent dizzy episodes after HD, worse when standing. No cp sob palps loc pnd orthopnea le edema. Home Medications Medication Instructions Recorded Ergocalciferol (Vitamin D2) 50,000 unit PO WEEKLY 09/25/18 [Vitamin D2] Aspirin [ASA -] 81 mg PO DAILY #30 tab.chew 11/20/18 Atorvastatin Ca [Lipitor] 40 mg PO HS #30 tablet 11/20/18 Clopidogrel Bisulfate [Plavix -] 75 mg PO DAILY #30 tablet 11/20/18 Finasteride [Proscar -] 5 mg PO DAILY #30 tablet 11/20/18 Isosorbide Mononitrate [Imdur -] 30 mg PO DAILY #30 tab.sr.24h 11/20/18 Tamsulosin HCl [Flomax] 0.4 mg PO DAILY #30 capsule 11/20/18 hydrALAZINE HCL [Apresoline -] 50 mg PO TID #90 tablet 11/20/18 Furosemide [Lasix -] 80 mg PO BID 01/23/19 Labetalol HCl [Normodyne -] 200 mg PO BID 01/23/19 Nifedipine ER [Procardia XL -] 60 mg PO DAILY 01/23/19 Glipizide [Glucotrol] 10 mg PO BID 03/19/19 Losartan Potassium [Cozaar -] 50 mg PO DAILY 03/19/19 Hydrochlorothiazide 50 mg PO DAILY 03/22/19 Midodrine HCl [Proamatine -] 2.5 mg PO TID 30 Days #90 tablet 03/23/19 Family Disease History - Family Disease History Family History: Unremarkable Review of Systems - Review of Systems per hpi; all others nl Vital Signs Vital Signs Period Temp Pulse Resp BP Sys/Lopez Pulse Ox Last 24 Hr 97.8 F-98.1 F 77-85 18-20 125-159/69-109 97-100 Constitutional: Yes: Well Nourished, No Distress, Calm Eyes: Yes: Conjunctiva Clear Neck: Yes: Supple, Trachea Midline Respiratory: Yes: cta bl nl eff Gastrointestinal: Yes: Normal Bowel Sounds, Soft Cardiovascular: Yes: Regular Rate and Rhythm JVD: no Carotid Bruit: No PMI: Non-Displaced Heart Sounds: Yes: S1, S2 Musculoskeletal: No: Back Pain Extremities: No: Cold Edema: no Peripheral Pulses: 2+ Left Doralis Pedis, 2+ Right Dorsalis Pedis Integumentary: No: Jaundice diaphoresis Neurological: Yes: Alert, Oriented Psychiatric: No: Agitated Laboratory Last Values WBC 5.8 K/mm3 (4.0-10.0) 03/26/19 07:00 RBC 3.60 M/mm3 (4.00-5.60) L 03/26/19 07:00 Hgb 10.4 GM/dL (11.7-16.9) L 03/26/19 07:00 Hct 32.1 % (35.4-49) L 03/26/19 07:00 MCV 89.2 fl (80-96) 03/26/19 07:00 MCH 29.0 pg (25.7-33.7) 03/26/19 07:00 MCHC 32.5 g/dl (32.0-35.9) 03/26/19 07:00 RDW 13.1 % (11.9-15.9) 03/26/19 07:00 Plt Count 215 K/MM3 (134-434) 03/26/19 07:00 MPV 7.4 fl (7.5-11.1) L 03/26/19 07:00 Absolute Neuts (auto) 3.2 K/mm3 (1.5-8.0) 03/26/19 07:00 Neutrophils % 55.1 % (42.8-82.8) D 03/26/19 07:00 Lymphocytes % 29.0 % (8-40) D 03/26/19 07:00 Monocytes % 10.4 % (3.8-10.2) H 03/26/19 07:00 Eosinophils % 4.3 % (0-4.5) D 03/26/19 07:00 Basophils % 1.2 % (0-2.0) 03/26/19 07:00 Nucleated RBC % 0 % (0-0) 03/26/19 07:00 ESR 38 mm/hr (0-20) H 03/26/19 07:00 Sodium 140 mmol/L (136-145) 03/26/19 07:00 Potassium 4.1 mmol/L (3.5-5.1) 03/26/19 07:00 Chloride 105 mmol/L (98-107) 03/26/19 07:00 Carbon Dioxide 26 mmol/L (21-32) 03/26/19 07:00 Anion Gap 9 MMOL/L (8-16) 03/26/19 07:00 BUN 51.2 mg/dL (7-18) H 03/26/19 07:00 Creatinine 3.1 mg/dL (0.55-1.3) H 03/26/19 07:00 Est GFR (CKD-EPI)AfAm 24.38 03/26/19 07:00 Est GFR (CKD-EPI)NonAf 21.03 03/26/19 07:00 Random Glucose 67 mg/dL (74-106) L 03/26/19 07:00 Calcium 7.9 mg/dL (8.5-10.1) L 03/26/19 07:00 Total Bilirubin 0.6 mg/dL (0.2-1) 03/26/19 07:00 AST 33 U/L (15-37) 03/26/19 07:00 ALT 83 U/L (13-61) H 03/26/19 07:00 Alkaline Phosphatase 100 U/L (45-117) 03/26/19 07:00 Troponin I < 0.02 ng/ml (0.00-0.05) 03/25/19 23:00 Total Protein 7.2 g/dl (6.4-8.2) 03/26/19 07:00 Albumin 3.0 g/dl (3.4-5.0) L 03/26/19 07:00 Urine Color Yellow 03/25/19 01:00 Urine Appearance Clear 03/25/19 01:00 Urine pH 6.0 (5.0-8.0) 03/25/19 01:00 Ur Specific [place] 1.020 (1.010-1.035) 03/25/19 01:00 Urine Protein 4+ (NEGATIVE) H 03/25/19 01:00 Urine Glucose (UA) 1+ (NEGATIVE) H 03/25/19 01:00 Urine Ketones Negative (NEGATIVE) 03/25/19 01:00 Urine Blood Trace (NEGATIVE) 03/25/19 01:00 Urine Nitrite Negative (NEGATIVE) 03/25/19 01:00 Urine Bilirubin Negative (NEGATIVE) 03/25/19 01:00 Urine Urobilinogen 1.0 mg/dL (0.2-1.0) 03/25/19 01:00 Ur Leukocyte Esterase Negative (NEGATIVE) 03/25/19 01:00 Urine WBC (Auto) 2 /hpf (0-5) 03/25/19 01:00 Urine RBC (Auto) 13 /hpf (0-4) 03/25/19 01:00 Urine Casts (Auto) 25 /lpf (0-8) 03/25/19 01:00 U Pathogenic Cast Auto None seen /lpf (NEGATIVE) 03/25/19 01:00 U Epithel Cells (Auto) 3.5 /HPF (0-5/HPF) 03/25/19 01:00 Urine Bacteria (Auto) 0 /hpf (NEGATIVE) 03/25/19 01:00 [facility] 10/2017 planned staged PCI of mid LAD [facility] 09/2017 (for inf ischemia on MPI) mild RCA, 80-90% LCx s/p FER, 70-80% mLAD. EDP 25->15 post nitro, EF 50% Echo 05/2018 mildly dilated LV, mild conc LVH, with discrete upper septal component, overal nl LV function EF 55%LA pressure uncertain, no RWMA,nl RV, mild MR, at least mild pulm HTN, mild MRRVSP at least 48 mmHg echo 09/2018 nl LV size, mild to mod reduced LV function EF 40-45%, RV nl, nl biatrial size, mild MR, mild to mod TR, mild ao sclerosis, trivial pericardial effusion, lg pleural effusion echo 03/2019: nl lv/rv, mild tr, rvsp 30-40 CXR: clear lungs ecg: sr nl intervals nonspec tw changes no sig change prior a/p: 59M h/o DM, HTN, HLD, CAD s/p stents x2 in 2017, esrd on hd p/w dizziness. dizziness: -started since beginning HD, likely ortho hypotension -agree with increased dose of midodrine, monitor sxs, ortho vitals. increase to 10 tid if sxs persist -recent echo unremarkable -no signs chf or acs -monitor on tele chronic systolic/diastolic chf: -stable vol status with HD -cont arb, bb esrd: -hd per renal CAD - s/p FER most recently 09/2017, 10/2017 - on aspirin and plavix, continue same. - cont bb, arb, statin HTN -cont home meds PAD - hx L SFA stent, [employer] of left 2017 - aspirin, statin, plavix HLD - cont statin
[2019-03-26] MEDS: ATORVASTATIN CA 40 MG TABLET (FP) PO SCH (21:33)
[2019-03-27 01:49] VITALS: BMI 27.7
[2019-03-27] MEDS ORDERED: EPOETIN ALFA 10,000 UNIT/1 ML VIAL IVPUSH ONE (07:00)
[2019-03-27] MEDS ORDERED: PT OWN MED DRAWER 7, Y5N ONE ×3 (07:15→17:09)
[2019-03-27] MEDS: hydrALAZINE HCL 50 MG TABLET (FP) PO SCH ×3 (07:16→22:34)
[2019-03-27 08:28] LABS: BLOOD UREA NITROGEN 65.4 mg/dL (7-18); CALCIUM 8.1 mg/dL (8.5-10.1); CREATININE 3.7 mg/dL (0.55-1.3); POTASSIUM 4.1 mmol/L (3.5-5.1)
[2019-03-27] MEDS: MIDODRINE HCL 5 MG TABLET PO SCH ×3 (10:00→17:14)
[2019-03-27] MEDS: FINASTERIDE 5 MG TABLET (FP) PO SCH (12:13)
[2019-03-27] MEDS: LABETALOL HCL 100 MG TABLET (FP) PO SCH ×2 (12:13→22:34)
[2019-03-27] MEDS: NIFEdipine E.R 60 MG TABLET (UD) PO SCH (12:13)
[2019-03-27] MEDS: ASPIRIN 81 MG CHEWABLE TABLETS PO SCH (12:13)
[2019-03-27] MEDS: CLOPIDOGREL BISULFATE 75 MG TABLET (FP) PO SCH (12:14)
[2019-03-27] MEDS: LOSARTAN POTASSIUM 50 MG TABLET (FP) PO SCH (12:14)
[2019-03-27 13:10] LABS: BLOOD UREA NITROGEN 21.1 mg/dL (7-18); CREATININE 1.5 mg/dL (0.55-1.3)
--- NOTE | 2019-03-27 14:46 | PN ---
Physical Exam: SUBJECTIVE: Patient seen and examined He had his hemodialysis. no more dizziness no chest pains and or palpitations no fever or chills OBJECTIVE: Vital Signs Period Temp Pulse Resp BP Sys/Lopez Pulse Ox Last 24 Hr 97.8 F-98.7 F 75-85 18-20 112-177/58-99 98-98 GENERAL: The patient is awake, alert, and fully oriented, in no acute distress. HEAD: Normal with no signs of trauma. EYES: PERRL, extraocular movements intact, sclera anicteric, conjunctiva clear. No ptosis. ENT: Ears normal, nares patent, oropharynx clear without exudates, moist mucous membranes. NECK: Trachea midline, full range of motion, supple. LUNGS: Breath sounds equal, clear to auscultation bilaterally, no wheezes, no crackles, no accessory muscle use. HEART: Regular rate and rhythm, S1, S2 without murmur, rub or gallop. ABDOMEN: Soft, nontender, nondistended, normoactive bowel sounds, no guarding, no rebound, no hepatosplenomegaly, no masses. EXTREMITIES: 2+ pulses, warm, well-perfused, no edema. NEUROLOGICAL: Cranial nerves II through XII grossly intact. Normal speech, gait not observed. Laboratory Results - last 24 hr 03/27/19 03/27/19 07:50 11:35 Sodium 141 Potassium 4.1 Chloride 108 H Carbon Dioxide 25 Anion Gap 8 BUN 65.4 H 21.1 H Creatinine 3.7 H 1.5 H Est GFR (CKD-EPI)AfAm 19.68 58.63 Est GFR (CKD-EPI)NonAf 16.98 50.59 Random Glucose 94 Calcium 8.1 L Active Medications Generic Name Dose Route Start Last Admin Trade Name Freq PRN Reason Stop Dose Admin Aspirin 81 mg 03/26/19 10:00 03/27/19 12:13 Asa - PO 81 mg DAILY [facility] Administration Atorvastatin Calcium 40 mg 03/26/19 22:00 03/26/19 21:33 Lipitor - PO 40 mg HS [facility] Administration Clopidogrel Bisulfate 75 mg 03/26/19 10:00 03/27/19 12:14 Plavix - PO 75 mg DAILY [facility] Administration Epoetin [place] 10,000 unit 03/27/19 07:00 Epogen - IVPUSH 03/27/19 07:01 ONCE ONE Ergocalciferol 50,000 unit 03/26/19 10:00 03/26/19 10:12 Drisdol - PO 50,000 unit Fr [facility] Administration Finasteride 5 mg 03/26/19 10:00 03/27/19 12:13 Proscar - PO 5 mg DAILY [facility] Administration Hydralazine HCl 50 mg 03/26/19 06:00 03/27/19 13:50 Apresoline - PO 50 mg TID [facility] Administration Sodium Chloride 250 mls @ 3,000 mls/hr 03/26/19 15:47 Normal Saline - IV 03/27/19 15:47 PRN PRN Hypotension during Dialysis Labetalol HCl 200 mg 03/26/19 10:00 03/27/19 12:13 Normodyne - PO 200 mg BID [facility] Administration Losartan Potassium 50 mg 03/26/19 10:00 03/27/19 12:14 Cozaar - PO 50 mg DAILY [facility] Administration Midodrine 5 mg 03/26/19 23:34 03/27/19 13:50 Proamatine - PO 5 mg TID-MID [facility] Administration Nifedipine 60 mg 03/26/19 10:00 03/27/19 12:13 Procardia Xl - PO 60 mg DAILY [facility] Administration ASSESSMENT/PLAN: 58 year old male with ESRD on HD, CAD s/p PCI/Stent, Chronic Systolic Heart Failure, HTN, HLD, DM 2, Hx CVA, presented with dizziness after recent hospitalization for similar symptoms where pt was started on midodrine wtih improvement 1. dizziness- persistent with midodrine. will increase to 5mg TID, seen by cardio and agreed with. 2. ESRD on HD - resume regular schedule. nephro consult 3. CAD stable and has no chest pains s/p PCI/Stent - Continue Aspirin, Plavix, Lipitor, Imdur, Ranexa. 4. HTN -no orthostatsis continue Nifedipine, Labetalol, Hydralazine, Losartan, Lasix, Imdur. 5. Dyslipidemia - Continue Statin 6. Hx Chronic systolic heart failure - Echo 03/19 shows improved EF 55-60% - Continue BB, 7. DM 2 - maintain on novolog sliding scale. 8. History of CVA - Continue aspirin, plavix, lipitor. 9. BPH - Continue Finasteride. Tamsulosin held. 10. DVT Px - Heparin SQ 11- called dietary evaluation because he needs more food and current amount is no enough. Visit type - Emergency Visit Emergency Visit: Yes ED Registration Date: 03/26/19 Care time: The patient presented to the Emergency Department on the above date and was hospitalized for further evaluation of their emergent condition. - New Patient This patient is new to me today: Yes Date on this admission: 03/27/19 - Critical Care Critical Care patient: No - Discharge Referral Referred to [facility] Med P.C.: No
--- NOTE | 2019-03-27 16:06 | PN ---
Progress Note, Physician History of Present Illness: Pt seen and examined at bedside. He is awake and alert. He tolerated HD today. - Current Medication List Current Medications: Active Medications Aspirin (Asa -) 81 mg PO DAILY [facility] Last Admin: 03/27/19 12:13 Dose: 81 mg Atorvastatin Calcium (Lipitor -) 40 mg PO HS [facility] Last Admin: 03/26/19 21:33 Dose: 40 mg Clopidogrel Bisulfate (Plavix -) 75 mg PO DAILY [facility] Last Admin: 03/27/19 12:14 Dose: 75 mg Epoetin Uche (Epogen -) 10,000 unit IVPUSH ONCE ONE Stop: 03/27/19 07:01 Ergocalciferol (Drisdol -) 50,000 unit PO Fr [facility] Last Admin: 03/26/19 10:12 Dose: 50,000 unit Finasteride (Proscar -) 5 mg PO DAILY [facility] Last Admin: 03/27/19 12:13 Dose: 5 mg Hydralazine HCl (Apresoline -) 50 mg PO TID [facility] Last Admin: 03/27/19 13:50 Dose: 50 mg Sodium Chloride (Normal Saline -) 250 mls @ 3,000 mls/hr IV PRN PRN PRN Reason: Hypotension during Dialysis Stop: 03/27/19 15:47 Labetalol HCl (Normodyne -) 200 mg PO BID [facility] Last Admin: 03/27/19 12:13 Dose: 200 mg Losartan Potassium (Cozaar -) 50 mg PO DAILY [facility] Last Admin: 03/27/19 12:14 Dose: 50 mg Midodrine (Proamatine -) 5 mg PO TID-MID [facility] Last Admin: 03/27/19 13:50 Dose: 5 mg Nifedipine (Procardia Xl -) 60 mg PO DAILY [facility] Last Admin: 03/27/19 12:13 Dose: 60 mg - Objective Vital Signs: Vital Signs Temperature 98.9 F 03/27/19 14:54 Pulse Rate 81 03/27/19 14:54 Respiratory Rate 20 03/27/19 14:54 Blood Pressure 149/87 03/27/19 14:54 O2 Sat by Pulse Oximetry (%) 98 03/27/19 12:37 Constitutional: Yes: Calm Eyes: Yes: Conjunctiva Clear HENT: Yes: Atraumatic Neck: Yes: Supple Cardiovascular: Yes: S1, S2 Respiratory: Yes: CTA Bilaterally Gastrointestinal: Yes: Normal Bowel Sounds, Soft Genitourinary: Yes: WNL Edema: LLE: Trace, RLE: Trace Neurological: Yes: Oriented Psychiatric: Yes: Oriented Labs: CBC, BMP 03/26/19 07:00 03/27/19 11:35 Assessment/Plan Current Medications Generic Name Dose Route Start Last Admin Trade Name Freq PRN Reason Stop Dose Admin Aspirin 81 mg 03/26/19 10:00 03/27/19 12:13 Asa - PO 81 mg DAILY [facility] Administration Atorvastatin Calcium 40 mg 03/26/19 22:00 03/26/19 21:33 Lipitor - PO 40 mg HS [facility] Administration Clopidogrel Bisulfate 75 mg 03/26/19 10:00 03/27/19 12:14 Plavix - PO 75 mg DAILY [facility] Administration Epoetin Uche 10,000 unit 03/27/19 07:00 Epogen - IVPUSH 03/27/19 07:01 ONCE ONE Ergocalciferol 50,000 unit 03/26/19 10:00 03/26/19 10:12 Drisdol - PO 50,000 unit Fr [facility] Administration Finasteride 5 mg 03/26/19 10:00 03/27/19 12:13 Proscar - PO 5 mg DAILY [facility] Administration Hydralazine HCl 50 mg 03/26/19 06:00 03/27/19 13:50 Apresoline - PO 50 mg TID [facility] Administration Sodium Chloride 250 mls @ 3,000 mls/hr 03/26/19 15:47 Normal Saline - IV 03/27/19 15:47 PRN PRN Hypotension during Dialysis Labetalol HCl 200 mg 03/26/19 10:00 03/27/19 12:13 Normodyne - PO 200 mg BID [facility] Administration Losartan Potassium 50 mg 03/26/19 10:00 03/27/19 12:14 Cozaar - PO 50 mg DAILY [facility] Administration Midodrine 5 mg 03/26/19 23:34 03/27/19 13:50 Proamatine - PO 5 mg TID-MID [facility] Administration Nifedipine 60 mg 03/26/19 10:00 03/27/19 12:13 Procardia Xl - PO 60 mg DAILY [facility] Administration 1. Dizziness/Orthostatic hypotension 2. ESRD/GABI on HD 3. Anemia 4. Hypertension Plan - pt tolerated HD today - monitor bp - renal diet - monitor lytes
[2019-03-27] MEDS: ATORVASTATIN CA 40 MG TABLET (FP) PO SCH (22:34)
[2019-03-28] MEDS: hydrALAZINE HCL 50 MG TABLET (FP) PO SCH ×3 (05:32→21:38)
--- NOTE | 2019-03-28 09:16 | PN ---
Teaching Attending Note Name of Resident: Swati Amaya ATTENDING PHYSICIAN STATEMENT I saw and evaluated the patient. I reviewed the resident's note and discussed the case with the resident. I agree with the resident's findings and plan as documented. SUBJECTIVE: OBJECTIVE: Vital Signs Temperature 98.4 F 03/28/19 05:38 Pulse Rate 76 03/28/19 05:38 Respiratory Rate 20 03/28/19 05:38 Blood Pressure 161/87 03/28/19 05:38 O2 Sat by Pulse Oximetry (%) 98 03/27/19 21:00 elderly man comfortable not in distress feel;s improved HEENT: mm moist, no mild anemia, PERRLA EOMI NECK; No JVd No Bruit CHEST: CTA B/L CVS; S1S2 r no m/g/r ABD: No distention EXT: Trace edema, no JVD No Bruit SR. 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 Sees Dr. Perez for cardio. Started HD couple mos ago and has been having frequent dizzy episodes after HD, worse when standing. evaluted by Cardiology consult Impression; Patient is a known case of of symptomatic orthosttaic hypotention on Midodrine 5 mg , evaluated by Cardiology recommended increase Midodrine to 10 mg TID educate to use elastic stockings and postural training. Rest cont current management.
[2019-03-28] MEDS: NIFEdipine E.R 60 MG TABLET (UD) PO SCH (10:26)
[2019-03-28] MEDS: LOSARTAN POTASSIUM 50 MG TABLET (FP) PO SCH (10:26)
[2019-03-28] MEDS: CLOPIDOGREL BISULFATE 75 MG TABLET (FP) PO SCH (10:26)
[2019-03-28] MEDS: LABETALOL HCL 100 MG TABLET (FP) PO SCH ×2 (10:27→21:38)
[2019-03-28] MEDS: FINASTERIDE 5 MG TABLET (FP) PO SCH (10:27)
[2019-03-28] MEDS: ASPIRIN 81 MG CHEWABLE TABLETS PO SCH (10:27)
[2019-03-28] MEDS ORDERED: PT OWN MED DRAWER 7, Y5N ONE ×2 (10:34→17:47)
[2019-03-28] MEDS: MIDODRINE HCL 5 MG TABLET PO SCH ×3 (10:35→18:31)
--- NOTE | 2019-03-28 13:07 | PN ---
Physical Exam: SUBJECTIVE: Patient seen and examined this AM. Continues to have dizziness when upright; occurred twice this AM. Otherwise, no new complaints. OBJECTIVE: Vital Signs Period Temp Pulse Resp BP Sys/Lopez Pulse Ox Last 24 Hr 98.4 F-98.9 F 76-81 18-20 107-161/59-87 98 GENERAL: A&Ox3, NAD HEAD: NCAT EYES: PERRL, EOMI ENT: Moist mucous membranes. NECK: Supple, No JVD LUNGS: CTAB, No wheezes, no crackles HEART: Regular rate and rhythm, normal S1 and S2 without murmur ABDOMEN: Soft, nontender, not distended, + bowel sounds, no guarding, no rebound MUSCULOSKELETAL: No CVA tenderness. EXTREMITIES: 2+ pulses, No peripheral edema. NEUROLOGICAL: Cranial nerves II-XII intact. Gross sensation intact throughout. 5 /5 Muscle strength throughout. SKIN: Warm, dry Laboratory Results - last 24 hr 03/27/19 03/27/19 03/28/19 08:10 11:35 12:22 BUN 21.1 H Creatinine 1.5 H Est GFR (CKD-EPI)AfAm 58.63 Est GFR (CKD-EPI)NonAf 50.59 POC Glucometer 203 Hep Bs Antigen Negative Hep C Ab Diagnostic 0.3 Active Medications Aspirin (Asa -) 81 mg PO DAILY [facility] Last Admin: 03/28/19 10:27 Dose: 81 mg Atorvastatin Calcium (Lipitor -) 40 mg PO HS [facility] Last Admin: 03/27/19 22:34 Dose: 40 mg Clopidogrel Bisulfate (Plavix -) 75 mg PO DAILY [facility] Last Admin: 03/28/19 10:26 Dose: 75 mg Epoetin Uche (Epogen -) 10,000 unit IVPUSH ONCE ONE Stop: 03/27/19 07:01 Ergocalciferol (Drisdol -) 50,000 unit PO Fr [facility] Last Admin: 03/26/19 10:12 Dose: 50,000 unit Finasteride (Proscar -) 5 mg PO DAILY [facility] Last Admin: 03/28/19 10:27 Dose: 5 mg Hydralazine HCl (Apresoline -) 50 mg PO TID [facility] Last Admin: 03/28/19 05:32 Dose: 50 mg Sodium Chloride (Normal Saline -) 250 mls @ 3,000 mls/hr IV PRN PRN PRN Reason: Hypotension during Dialysis Stop: 03/27/19 15:47 Labetalol HCl (Normodyne -) 200 mg PO BID [facility] Last Admin: 03/28/19 10:27 Dose: 200 mg Losartan Potassium (Cozaar -) 50 mg PO DAILY [facility] Last Admin: 03/28/19 10:26 Dose: 50 mg Midodrine (Proamatine -) 10 mg PO TID-MID [facility] Nifedipine (Procardia Xl -) 60 mg PO DAILY [facility] Last Admin: 03/28/19 10:26 Dose: 60 mg ASSESSMENT/PLAN: 58 y/o male with PMH ESRD (on HD [facility] via [facility], see's Dr. Quiroz), CAD ( s/p 2 FER in 2018 on ASA/clopidogrel), CHF (Last EF 09/22 40-45%), CVA (2018), DMII, HTN, HLD whom admitted for recurring dizziness following dialysis. #Dizziness -Continue physical therapy, Patient advised not to refuse -Hold home does HCTZ, Tamsulosin -Midodrine increased to 10mg TID -Cardio consulted, appreciate rec's -Consider Vestibular rehab after d/c #ESRD on HD ([facility]) -Nephro (Dr. Quiroz) consulted -Renally dose all meds, CrCL calculated 18 -Avoid nephrotoxic meds (NSAIDs) -Renal diet #CAD (s/p 2 FER) -Continue ASA, Clopidogrel, Statin, Imdur #CHF (Last EF 03/25 55-60%) -Currently not in exacerbation -Continue home dose Labetalol 200mg BID, Lasix 80mg BID #DMII -Hold oral hypoglycemics -ISS BGMs ACHS #HTN -Currently normotensive, Continue home meds #HLD -Statin #BPH -Continue Finasteride -Hold tamsulosin #FEN -No standing fluids -Replete lytes PRN -Renal diet #PPx -DVT: Heparin SQ Dispo: Med-Surg; Likely for D/C tmrw pending SPA THERAPIST Visit type - Emergency Visit Emergency Visit: Yes ED Registration Date: 03/26/19 Care time: The patient presented to the Emergency Department on the above date and was hospitalized for further evaluation of their emergent condition. - New Patient This patient is new to me today: No - Critical Care Critical Care patient: No ATTENDING PHYSICIAN STATEMENT I saw and evaluated the patient. I reviewed the resident's note and discussed the case with the resident. I agree with the resident's findings and plan as documented. SUBJECTIVE: OBJECTIVE: ASSESSMENT AND PLAN:
--- NOTE | 2019-03-28 18:58 | PN ---
Progress Note, Physician History of Present Illness: Pt seen and examined at bedside. He is awake and alert. He denies shortness of breath. - Current Medication List Current Medications: Active Medications Aspirin (Asa -) 81 mg PO DAILY [facility] Last Admin: 03/28/19 10:27 Dose: 81 mg Atorvastatin Calcium (Lipitor -) 40 mg PO HS [facility] Last Admin: 03/27/19 22:34 Dose: 40 mg Clopidogrel Bisulfate (Plavix -) 75 mg PO DAILY [facility] Last Admin: 03/28/19 10:26 Dose: 75 mg Epoetin Uche (Epogen -) 10,000 unit IVPUSH ONCE ONE Stop: 03/27/19 07:01 Ergocalciferol (Drisdol -) 50,000 unit PO Fr [facility] Last Admin: 03/26/19 10:12 Dose: 50,000 unit Finasteride (Proscar -) 5 mg PO DAILY [facility] Last Admin: 03/28/19 10:27 Dose: 5 mg Hydralazine HCl (Apresoline -) 50 mg PO TID [facility] Last Admin: 03/28/19 15:04 Dose: 50 mg Sodium Chloride (Normal Saline -) 250 mls @ 3,000 mls/hr IV PRN PRN PRN Reason: Hypotension during Dialysis Stop: 03/27/19 15:47 Insulin Aspart (Novolog Vial Sliding Scale -) 1 vial SQ ACHS REPLACED [facility]; Protocol Labetalol HCl (Normodyne -) 200 mg PO BID [facility] Last Admin: 03/28/19 10:27 Dose: 200 mg Losartan Potassium (Cozaar -) 50 mg PO DAILY [facility] Last Admin: 03/28/19 10:26 Dose: 50 mg Midodrine (Proamatine -) 10 mg PO TID-MID [facility] Last Admin: 03/28/19 18:31 Dose: 10 mg Nifedipine (Procardia Xl -) 60 mg PO DAILY [facility] Last Admin: 03/28/19 10:26 Dose: 60 mg - Objective Vital Signs: Vital Signs Temperature 98.1 F 03/28/19 13:37 Pulse Rate 78 03/28/19 14:24 Respiratory Rate 20 03/28/19 13:37 Blood Pressure 104/57 L 03/28/19 14:24 O2 Sat by Pulse Oximetry (%) 97 03/28/19 09:00 Constitutional: Yes: Calm Eyes: Yes: Conjunctiva Clear HENT: Yes: Atraumatic Neck: Yes: Supple Cardiovascular: Yes: S1, S2 Respiratory: Yes: CTA Bilaterally Gastrointestinal: Yes: Soft Genitourinary: Yes: WNL Musculoskeletal: Yes: WNL Edema: LLE: Trace, RLE: Trace Neurological: Yes: Oriented Labs: CBC, BMP 03/26/19 07:00 03/27/19 11:35 Assessment/Plan Current Medications Generic Name Dose Route Start Last Admin Trade Name Freq PRN Reason Stop Dose Admin Aspirin 81 mg 03/26/19 10:00 03/28/19 10:27 Asa - PO 81 mg DAILY [facility] Administration Atorvastatin Calcium 40 mg 03/26/19 22:00 03/27/19 22:34 Lipitor - PO 40 mg HS [facility] Administration Clopidogrel Bisulfate 75 mg 03/26/19 10:00 03/28/19 10:26 Plavix - PO 75 mg DAILY [facility] Administration Epoetin Uche 10,000 unit 03/27/19 07:00 Epogen - IVPUSH 03/27/19 07:01 ONCE ONE Ergocalciferol 50,000 unit 03/26/19 10:00 03/26/19 10:12 Drisdol - PO 50,000 unit Fr [facility] Administration Finasteride 5 mg 03/26/19 10:00 03/28/19 10:27 Proscar - PO 5 mg DAILY [facility] Administration Hydralazine HCl 50 mg 03/26/19 06:00 03/28/19 15:04 Apresoline - PO 50 mg TID [facility] Administration Sodium Chloride 250 mls @ 3,000 mls/hr 03/26/19 15:47 Normal Saline - IV 03/27/19 15:47 PRN PRN Hypotension during Dialysis Insulin Aspart 1 vial 03/28/19 22:00 Novolog Vial Sliding Scale - SQ ACHS [facility] Protocol Labetalol HCl 200 mg 03/26/19 10:00 03/28/19 10:27 Normodyne - PO 200 mg BID [facility] Administration Losartan Potassium 50 mg 03/26/19 10:00 03/28/19 10:26 Cozaar - PO 50 mg DAILY [facility] Administration Midodrine 10 mg 03/28/19 12:54 03/28/19 18:31 Proamatine - PO 10 mg TID-MID [facility] Administration Nifedipine 60 mg 03/26/19 10:00 03/28/19 10:26 Procardia Xl - PO 60 mg DAILY [facility] Administration 1. Dizziness/Orthostatic hypotension 2. ESRD/GABI on HD 3. Anemia 4. Hypertension Plan - pt tolerating diet - cont renal diet - next HD on Friday - no acute change in management
[2019-03-28] MEDS: ATORVASTATIN CA 40 MG TABLET (FP) PO SCH (21:38)
[2019-03-28] MEDS: INSULIN SLIDING SCALE (NOVOLOG) 1 VIAL SQ SCH (21:41)
[2019-03-29] MEDS: INSULIN SLIDING SCALE (NOVOLOG) 1 VIAL SQ SCH ×4 (06:06→22:14)
[2019-03-29] MEDS: hydrALAZINE HCL 50 MG TABLET (FP) PO SCH ×3 (06:06→22:14)
[2019-03-29] MEDS ORDERED: PT OWN MED DRAWER 7, Y5N ONE ×2 (09:54→22:13)
[2019-03-29] MEDS: ASPIRIN 81 MG CHEWABLE TABLETS PO SCH (09:56)
[2019-03-29] MEDS: FINASTERIDE 5 MG TABLET (FP) PO SCH (09:56)
[2019-03-29] MEDS: NIFEdipine E.R 60 MG TABLET (UD) PO SCH (09:56)
[2019-03-29] MEDS: CLOPIDOGREL BISULFATE 75 MG TABLET (FP) PO SCH (09:56)
[2019-03-29] MEDS: LOSARTAN POTASSIUM 50 MG TABLET (FP) PO SCH (09:56)
[2019-03-29] MEDS: MIDODRINE HCL 5 MG TABLET PO SCH (10:04)
--- NOTE | 2019-03-29 10:41 | PN ---
Teaching Attending Note Name of Resident: Daryn Deluna ATTENDING PHYSICIAN STATEMENT I saw and evaluated the patient. I reviewed the resident's note and discussed the case with the resident. I agree with the resident's findings and plan as documented. SUBJECTIVE: Patient denies lightheadedness while lying in bed. OBJECTIVE: Vital Signs Period Temp Pulse Resp BP Sys/Lopez Pulse Ox Last 24 Hr 98.1 F-98.7 F 78-82 20-20 104-192/57-92 98 HEART: S1S2, RRR LUNGS: Clear ABDOMEN: Soft, non-tender, non-distended, normal BS EXTREMITIES: No edema Laboratory Results - last 24 hr 03/28/19 03/28/19 03/29/19 12:22 21:40 05:45 POC Glucometer 203 167 115 Current Medications Generic Name Dose Route Start Last Admin Trade Name Freq PRN Reason Stop Dose Admin Aspirin 81 mg 03/26/19 10:00 03/29/19 09:56 Asa - PO 81 mg DAILY [facility] Administration Atorvastatin Calcium 40 mg 03/26/19 22:00 03/28/19 21:38 Lipitor - PO 40 mg HS [facility] Administration Clopidogrel Bisulfate 75 mg 03/26/19 10:00 03/29/19 09:56 Plavix - PO 75 mg DAILY [facility] Administration Epoetin Uche 10,000 unit 03/27/19 07:00 Epogen - IVPUSH 03/27/19 07:01 ONCE ONE Ergocalciferol 50,000 unit 03/26/19 10:00 03/26/19 10:12 Drisdol - PO 50,000 unit Fr [facility] Administration Finasteride 5 mg 03/26/19 10:00 03/29/19 09:56 Proscar - PO 5 mg DAILY [facility] Administration Hydralazine HCl 50 mg 03/26/19 06:00 03/29/19 06:06 Apresoline - PO 50 mg TID [facility] Administration Sodium Chloride 250 mls @ 3,000 mls/hr 03/26/19 15:47 Normal Saline - IV 03/27/19 15:47 PRN PRN Hypotension during Dialysis Insulin Aspart 1 vial 03/28/19 22:00 03/29/19 06:06 Novolog Vial Sliding Scale - SQ Not Given ACHS [facility] Protocol Labetalol HCl 200 mg 03/26/19 10:00 03/28/19 21:38 Normodyne - PO 200 mg BID [facility] Administration Losartan Potassium 50 mg 03/26/19 10:00 03/29/19 09:56 Cozaar - PO 50 mg DAILY [facility] Administration Midodrine 10 mg 03/28/19 12:54 03/29/19 10:04 Proamatine - PO Not Given TID-MID [facility] Nifedipine 60 mg 03/26/19 10:00 03/29/19 09:56 Procardia Xl - PO 60 mg DAILY [facility] Administration ASSESSMENT AND PLAN: This is a 59 year old man with a history of ESRD, CAD with stents, chronic systolic heart failure, HTN, hyperlipidemia, type 2 DM, CVA, BPH who presented to the ED with dizziness. 1. Orthostatic hypotension - Midodrine increased - Continue to hold Flomax, HCTZ 2. ESRD - Continue HD 3. CAD, history of stents - Continue aspirin, Plavix, Lipitor, Procardia 4. Chronic systolic heart failure - Stable - Continue Cozaar 5. HTN - Continue Cozaar, Procardia XL, Labetalol, Hydralazine 6. Hyperlipidemia - Continue Lipitor 7. Type 2 DM - Continue Novolog sliding scale 8. BPH - Continue Proscar - Flomax held secondary to orthostatic hypotension 9. History of CVA - Continue aspirin, Plavix, Lipitor
--- NOTE | 2019-03-29 10:59 | PN ---
Progress Note, Physician Chief Complaint: dizziness History of Present Illness: walked to bathroom ok today--dizzy on way back to bed. not as severe as prior to admit denies cp, sob, palp - Current Medication List Current Medications: Active Medications Aspirin (Asa -) 81 mg PO DAILY [facility] Last Admin: 03/29/19 09:56 Dose: 81 mg Atorvastatin Calcium (Lipitor -) 40 mg PO HS [facility] Last Admin: 03/28/19 21:38 Dose: 40 mg Clopidogrel Bisulfate (Plavix -) 75 mg PO DAILY [facility] Last Admin: 03/29/19 09:56 Dose: 75 mg Epoetin Uche (Epogen -) 10,000 unit IVPUSH ONCE ONE Stop: 03/27/19 07:01 Ergocalciferol (Drisdol -) 50,000 unit PO Fr [facility] Last Admin: 03/26/19 10:12 Dose: 50,000 unit Finasteride (Proscar -) 5 mg PO DAILY [facility] Last Admin: 03/29/19 09:56 Dose: 5 mg Hydralazine HCl (Apresoline -) 50 mg PO TID [facility] Last Admin: 03/29/19 06:06 Dose: 50 mg Sodium Chloride (Normal Saline -) 250 mls @ 3,000 mls/hr IV PRN PRN PRN Reason: Hypotension during Dialysis Stop: 03/27/19 15:47 Insulin Aspart (Novolog Vial Sliding Scale -) 1 vial SQ ACHS [facility]; Protocol Last Admin: 03/29/19 06:06 Dose: Not Given Labetalol HCl (Normodyne -) 200 mg PO BID [facility] Last Admin: 03/28/19 21:38 Dose: 200 mg Losartan Potassium (Cozaar -) 50 mg PO DAILY [facility] Last Admin: 03/29/19 09:56 Dose: 50 mg Midodrine (Proamatine -) 10 mg PO TID-MID [facility] Last Admin: 03/29/19 10:04 Dose: Not Given Nifedipine (Procardia Xl -) 60 mg PO DAILY [facility] Last Admin: 03/29/19 09:56 Dose: 60 mg - Objective Vital Signs: Vital Signs Temperature 98.7 F 03/29/19 06:39 Pulse Rate 82 03/29/19 06:39 Respiratory Rate 20 03/29/19 06:39 Blood Pressure 182/88 H 03/29/19 06:39 O2 Sat by Pulse Oximetry (%) 98 03/28/19 21:00 Constitutional: Yes: Well Nourished, No Distress, Calm Cardiovascular: Yes: Regular Rate and Rhythm, S1, S2. No: Gallop, Murmur Respiratory: Yes: Regular, CTA Bilaterally. No: Accessory Muscle Use, Rales Extremities: No: Cold Edema: No Neurological: Yes: Alert, Oriented Psychiatric: No: Agitated Labs: CBC, BMP 03/26/19 07:00 03/27/19 11:35 Assessment/Plan [facility] 10/2017 planned staged PCI of mid LAD [facility] 09/2017 (for inf ischemia on MPI) mild RCA, 80-90% LCx s/p FER, 70-80% mLAD. EDP 25->15 post nitro, EF 50% Echo 05/2018 mildly dilated LV, mild conc LVH, with discrete upper septal component, overal nl LV function EF 55%LA pressure uncertain, no RWMA,nl RV, mild MR, at least mild pulm HTN, mild MRRVSP at least 48 mmHg echo 09/2018 nl LV size, mild to mod reduced LV function EF 40-45%, RV nl, nl biatrial size, mild MR, mild to mod TR, mild ao sclerosis, trivial pericardial effusion, lg pleural effusion echo 03/2019: nl lv/rv, mild tr, rvsp 30-40 CXR: clear lungs ecg: sr nl intervals nonspec tw changes no sig change prior a/p: 59M h/o DM, HTN, HLD, CAD s/p stents x2 in 2017, esrd on hd p/w dizziness. orthostatic dizziness, supine HTN -sx's started since beginning HD, ortho hypotension documented here -agree with increased dose of midodrine to 10 tid. -supine BPs suboptimal--will have to tolerate some degree of elevation. today 180-190. -on potent vasodilator regimen (hydralazine, nifedipine, labetalol), likely exacerbating orthostatic hypo tendencies--will d/w dr hodgson whether or not his severity of HTN might tolerate cutting back and instead replacing with non- vasodilating BB, CCB +/- clonidine (the latter shey tricky in HD pts given potential for hypotension during sessions, or rebound HTN when skipped). - if persists, will have no choice but to cut back midodrine dose and consider pyridostigmine (doesn't tend to raise resting bp's) or droxidopa (can cause HTN ) if ok in dialysis pt -observe BP trend later today -recent echo unremarkable -no signs chf or acs -monitor on tele chronic systolic/diastolic chf: -stable vol status with HD, appears euvolemic -cont arb, bb esrd: -hd per renal CAD - s/p FER most recently 09/2017, 10/2017 - on aspirin and plavix, continue same. 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
--- NOTE | 2019-03-29 11:40 | PN ---
Physical Exam: HPI: 59M w/ PMH of ESRD (T/R/S via RIGHT Permacath, Nephro - Dr. Quiroz), CAD (s/p 2 FER in 2018 on ASA/Clopidogrel), CHF (Last EF 03/25 55%), CVA (2018), DM ( Glipizide), HTN, HLD. He presented to the ER with complaints of an episode of dizziness after a session of HD. Has associated nausea, sensation that head is spinning. Dizziness usually associated with HD. Has prior hospitalization at [facility] for similar complaint on 03/19/19 SUBJECTIVE: Patient seen and examined. Complains of continued dizziness, occurring upon ambulating from bathroom back to bed. States that last night had continued spinning sensation in the head with sitting upright. Currently, no complaints with sitting upright. Able to ambulate to bathroom today. Tolerated meal. States that he feels like he voids a large volume, but doesn't have increased urinary frequency. No nausea, vomiting, fever, chills, dysuria. OBJECTIVE: Vital Signs Period Temp Pulse Resp BP Sys/Lopez Pulse Ox Last 24 Hr 98.1 F-98.7 F 78-82 20-20 104-192/57-92 98 GENERAL: A&Ox3. Cooperative HEAD: Normal with no signs of trauma. Mild temporal wasting EYES: extraocular movements intact, sclera anicteric. No ptosis. ENT: Ears normal, nares patent, moist mucous membranes. NECK: Trachea midline, full range of motion, supple. LUNGS: Breath sounds equal, clear to auscultation bilaterally, no wheezes, no crackles, no accessory muscle use. HEART: Regular rate and rhythm, S1, S2 without murmur, rub or gallop. ABDOMEN: Soft, nontender, nondistended, no guarding, no rebound, no hepatosplenomegaly, no masses. EXTREMITIES: DP 1+ b/l; Left foot with indurated nondraining wound with surrounding callus at the plantar forefoot, nonTTP, no foul odor NEUROLOGICAL: Normal speech, gait not observed. PSYCH: Normal mood, normal affect. SKIN: Warm, dry, normal turgor Laboratory Results - last 24 hr 03/28/19 03/28/19 03/29/19 12:22 21:40 05:45 POC Glucometer 203 167 115 Active Medications Generic Name Dose Route Start Last Admin Trade Name Freq PRN Reason Stop Dose Admin Aspirin 81 mg 03/26/19 10:00 03/29/19 09:56 Asa - PO 81 mg DAILY SANGEETHA Administration Atorvastatin Calcium 40 mg 03/26/19 22:00 03/28/19 21:38 Lipitor - PO 40 mg HS SANGEETHA Administration Clopidogrel Bisulfate 75 mg 03/26/19 10:00 03/29/19 09:56 Plavix - PO 75 mg DAILY S[facility] Administration Epoetin Uche 10,000 unit 03/27/19 07:00 Epogen - IVPUSH 03/27/19 07:01 ONCE ONE Ergocalciferol 50,000 unit 03/26/19 10:00 03/26/19 10:12 Drisdol - PO 50,000 unit Fr SANGEETHA Administration Finasteride 5 mg 03/26/19 10:00 03/29/19 09:56 Proscar - PO 5 mg DAILY S[facility] Administration Hydralazine HCl 50 mg 03/26/19 06:00 03/29/19 06:06 Apresoline - PO 50 mg TID SANGEETHA Administration Sodium Chloride 250 mls @ 3,000 mls/hr 03/26/19 15:47 Normal Saline - IV 03/27/19 15:47 PRN PRN Hypotension during Dialysis Insulin Aspart 1 vial 03/28/19 22:00 03/29/19 06:06 Novolog Vial Sliding Scale - SQ Not Given ACHS [facility] Protocol Labetalol HCl 200 mg 03/26/19 10:00 03/28/19 21:38 Normodyne - PO 200 mg BID S[facility]HA Administration Losartan Potassium 50 mg 03/26/19 10:00 03/29/19 09:56 Cozaar - PO 50 mg DAILY S[facility] Administration Midodrine 10 mg 03/28/19 12:54 03/29/19 10:04 Proamatine - PO Not Given TID-MID SANGE[facility]HA Nifedipine 60 mg 03/26/19 10:00 03/29/19 09:56 Procardia Xl - PO 60 mg DAILY S[facility] Administration Microbiology 03/25/19 01:00 Urine - Urine Clean Catch Urine Culture - Final Group D Strep Or Entero Coccus ASSESSMENT/PLAN: 58 y/o male with PMH ESRD (on HD TuThSa via R Permacat, see's Dr. Quiroz), CAD ( s/p 2 FER in 2018 on ASA/clopidogrel), CHF (Last EF 09/22 40-45%), CVA (2018), DMII, HTN, HLD whom admitted for recurring dizziness following dialysis. #Dizziness -Continue physical therapy, Patient advised not to refuse -Hold home does HCTZ, Tamsulosin -Midodrine 10mg TID -Cardio consulted, appreciate rec's -Neurology consulted, appreciate recs -Consider Vestibular rehab after d/c #ESRD on HD ([facility]) -Nephro (Dr. Quiroz) consulted, appreciate recs: --No acute need for dialysis today, next dialysis is planned for tomorrow. --Pt now with room spinning sensation, will add meclizine BID today and monitor for improvement in symptoms --Titrate down midodrine given supine hypertension --holding RICHARD with HD yesterday -Renally dose all meds, CrCL calculated 18 -Avoid nephrotoxic meds (NSAIDs) -Renal diet #CAD (s/p 2 FER) -Continue ASA, Clopidogrel, Statin, Imdur - s/p FER most recently 09/2017, 10/2017 -Cardio recs(Dr Perez): -- trend BP, consider reducing Midodrine if SBP persisting >180-190 -- consider pyridostigmine (doesn't tend to raise resting bp's) or droxidopa (can cause HTN) if ok in dialysis pt -no signs of acute chf or acs -monitor on tele #chronic PAD - hx L SFA stent, LOG RIDER of left 2017 - aspirin, statin, plavix #HTN -Currently normotensive, Continue home meds #HLD - cont statin #CHF (Last EF 03/25 55-60%) -Currently not in exacerbation -stable vol status with HD -Continue home dose Labetalol 200mg BID, Lasix 80mg BID #DMII -Hold oral hypoglycemics -ISS BGMs ACHS #BPH -Continue Finasteride -Hold tamsulosin #possible UTI >UCX(03/25/19): Group D Strep vs Enterococcus - hold Abx for now as pt is asymptomatic, afebrile, no leukocytosis #FEN -No standing fluids -Replete lytes PRN -Renal diet #PPx -DVT: Heparin SQ Dispo: Med-Surg; pending [employer] Problem List - Problems (1) Lightheaded Code(s): R42 - DIZZINESS AND GIDDINESS (2) CKD (chronic kidney disease) stage 4, GFR 15-29 ml/min Code(s): N18.4 - CHRONIC KIDNEY DISEASE, STAGE 4 (SEVERE) (3) DVT prophylaxis Code(s): CII4433 - (4) ESRD (end stage renal disease) Code(s): N18.6 - END STAGE RENAL DISEASE (5) Weakness Code(s): R53.1 - WEAKNESS (6) Hypertension Code(s): I10 - ESSENTIAL (PRIMARY) HYPERTENSION Qualifiers: Visit type - Emergency Visit Emergency Visit: No - New Patient This patient is new to me today: No - Critical Care Critical Care patient: No ATTENDING PHYSICIAN STATEMENT I saw and evaluated the patient. I reviewed the resident's note and discussed the case with the resident. I agree with the resident's findings and plan as documented. SUBJECTIVE: OBJECTIVE: ASSESSMENT AND PLAN:
[2019-03-29] MEDS ORDERED: MIDODRINE HCL 5 MG TABLET PO SCH (12:30)
[2019-03-29] MEDS ORDERED: SODIUM CHLORIDE 250 ML IV PRN (12:31)
--- NOTE | 2019-03-29 12:31 | PN ---
Progress Note (short form) - Note Progress Note: Renal follow up for ESRD on HD Seen and examined at the bedside awake and alert reports room spinning sensation when sitting in chair yesterday BP is elevated this am denies any chest pain, sob, abd pain, fever or chills last dialysis was Friday Vital Signs Temperature 98.7 F 03/29/19 06:39 Pulse Rate 82 03/29/19 06:39 Respiratory Rate 20 03/29/19 06:39 Blood Pressure 182/88 H 03/29/19 06:39 O2 Sat by Pulse Oximetry (%) 98 03/28/19 21:00 Intake & Output 03/26/19 03/27/19 03/28/19 03/29/19 23:59 23:59 23:59 23:59 Intake Total 1380 900 940 Output Total 3500 Balance -2120 900 940 Weight 99.291 kg 99.291 kg 97.069 kg 97.522 kg NAD awake and alert neck supple RRR CTA soft NT/ND + LE edema CBC, BMP 03/26/19 07:00 03/27/19 11:35 Current Medications Aspirin (Asa -) 81 mg PO DAILY [facility] Last Admin: 03/29/19 09:56 Dose: 81 mg Atorvastatin Calcium (Lipitor -) 40 mg PO HS [facility] Last Admin: 03/28/19 21:38 Dose: 40 mg Clopidogrel Bisulfate (Plavix -) 75 mg PO DAILY [facility] Last Admin: 03/29/19 09:56 Dose: 75 mg Epoetin Uche (Epogen -) 10,000 unit IVPUSH ONCE ONE Stop: 03/27/19 07:01 Ergocalciferol (Drisdol -) 50,000 unit PO Fr [facility] Last Admin: 03/26/19 10:12 Dose: 50,000 unit Finasteride (Proscar -) 5 mg PO DAILY [facility] Last Admin: 03/29/19 09:56 Dose: 5 mg Hydralazine HCl (Apresoline -) 50 mg PO TID [facility] Last Admin: 03/29/19 06:06 Dose: 50 mg Sodium Chloride (Normal Saline -) 250 mls @ 3,000 mls/hr IV PRN PRN PRN Reason: Hypotension during Dialysis Stop: 03/27/19 15:47 Insulin Aspart (Novolog Vial Sliding Scale -) 1 vial SQ ACHS [facility]; Protocol Last Admin: 03/29/19 11:39 Dose: 2 units Labetalol HCl (Normodyne -) 200 mg PO BID [facility] Last Admin: 03/28/19 21:38 Dose: 200 mg Losartan Potassium (Cozaar -) 50 mg PO DAILY [facility] Last Admin: 03/29/19 09:56 Dose: 50 mg Meclizine HCl (Antivert -) 12.5 mg PO BID [facility] Midodrine (Proamatine -) 10 mg PO TID-MID [facility] Last Admin: 03/29/19 10:04 Dose: Not Given Nifedipine (Procardia Xl -) 60 mg PO DAILY [facility] Last Admin: 03/29/19 09:56 Dose: 60 mg 58 year old gentleman with history of GABI requiring dialysis ( now maintained on HD), CHF, DM, Hypertension who presented from HD unit with dizziness. 1. Dizziness/Orthostatic hypotension 2. ESRD/GABI on HD 3. Anemia 4. Hypertension No acute need for dialysis today, next dialysis is planned for tomorrow. Pt now with room spinning sensation, will add meclizine BID today and monitor for improvement in symptoms Titrate down midodrine given supine hypertension holding RICHARD with HD yesterday continue present antihypertensives Thank you Mansoor Cooper DO
[2019-03-29] MEDS: LABETALOL HCL 100 MG TABLET (FP) PO SCH ×2 (12:32→22:14)
[2019-03-29] MEDS: MECLIZINE HCL 12.5 MG TABLET PO SCH ×2 (15:38→22:14)
[2019-03-29] MEDS: MIDODRINE HCL 2.5 MG, MIDODRINE HCL 5 MG PO SCH ×2 (15:39→19:00)
[2019-03-29] MEDS: ATORVASTATIN CA 40 MG TABLET (FP) PO SCH (22:14)
[2019-03-30] MEDS: hydrALAZINE HCL 50 MG TABLET (FP) PO SCH ×3 (05:06→21:51)
[2019-03-30] MEDS: INSULIN SLIDING SCALE (NOVOLOG) 1 VIAL SQ SCH ×4 (06:06→21:51)
[2019-03-30 09:39] LABS: HEMATOCRIT 28.4 % (35.4-49); HEMOGLOBIN 9.3 GM/dL (11.7-16.9); MCH 29.1 pg (25.7-33.7); MCHC 32.7 g/dl (32.0-35.9); MEAN PLT VOLUME 7.5 fl (7.5-11.1); PLATELET COUNT 244 K/MM3 (134-434); RBC 3.19 M/mm3 (4.00-5.60); RDW 12.7 % (11.9-15.9); WHITE BLOOD COUNT 6.1 K/mm3 (4.0-10.0)
[2019-03-30] MEDS: MIDODRINE HCL 2.5 MG, MIDODRINE HCL 5 MG PO SCH ×3 (10:00→19:35)
[2019-03-30] MEDS: MECLIZINE HCL 12.5 MG TABLET PO SCH ×2 (10:00→21:51)
[2019-03-30 10:18] LABS: CALCIUM 8.1 mg/dL (8.5-10.1); CREATININE 4.3 mg/dL (0.55-1.3); POTASSIUM 4.3 mmol/L (3.5-5.1)
--- NOTE | 2019-03-30 11:45 | PN ---
Progress Note (short form) - Note Progress Note: no chest pain, palps, dyspnea. no dizziness today, seen during dialysis Current Medications Aspirin (Asa -) 81 mg PO DAILY [facility] Last Admin: 03/29/19 09:56 Dose: 81 mg Atorvastatin Calcium (Lipitor -) 40 mg PO HS [facility] Last Admin: 03/29/19 22:14 Dose: 40 mg Clopidogrel Bisulfate (Plavix -) 75 mg PO DAILY [facility] Last Admin: 03/29/19 09:56 Dose: 75 mg Ergocalciferol (Drisdol -) 50,000 unit PO Fr [facility] Last Admin: 03/26/19 10:12 Dose: 50,000 unit Finasteride (Proscar -) 5 mg PO DAILY [facility] Last Admin: 03/29/19 09:56 Dose: 5 mg Hydralazine HCl (Apresoline -) 50 mg PO TID [facility] Last Admin: 03/30/19 05:06 Dose: 50 mg Sodium Chloride (Normal Saline -) 250 mls @ 3,000 mls/hr IV PRN PRN PRN Reason: Hypotension during Dialysis Stop: 03/27/19 15:47 Sodium Chloride (Normal Saline -) 250 mls @ 3,000 mls/hr IV PRN PRN PRN Reason: Hypotension during Dialysis Stop: 03/30/19 12:31 Insulin Aspart (Novolog Vial Sliding Scale -) 1 vial SQ ACHS [facility]; Protocol Last Admin: 03/30/19 06:06 Dose: Not Given Labetalol HCl (Normodyne -) 200 mg PO BID [facility] Last Admin: 03/29/19 22:14 Dose: 200 mg Losartan Potassium (Cozaar -) 50 mg PO DAILY [facility] Last Admin: 03/29/19 09:56 Dose: 50 mg Meclizine HCl (Antivert -) 12.5 mg PO BID [facility] Last Admin: 03/29/19 22:14 Dose: 12.5 mg Midodrine 2.5 mg/ Midodrine 5 (mg) 7.5 mg PO TID-MID [facility] Last Admin: 03/29/19 19:00 Dose: Not Given Nifedipine (Procardia Xl -) 60 mg PO DAILY [facility] Last Admin: 03/29/19 09:56 Dose: 60 mg Vital Signs Period Temp Pulse Resp BP Sys/Lopez Pulse Ox Last 24 Hr 98 F-98.4 F 72-81 18-20 118-188/53-95 98 Constitutional: Yes: Well Nourished, No Distress, Calm Cardiovascular: Yes: Regular Rate and Rhythm, S1, S2. No: Gallop, Murmur Respiratory: Yes: Regular, CTA Bilaterally. No: Accessory Muscle Use, Rales Extremities: No: Cold Edema: No Neurological: Yes: Alert, Oriented Psychiatric: No: Agitated Assessment/Plan [facility] 10/2017 planned staged PCI of mid LAD [facility] 09/2017 (for inf ischemia on MPI) mild RCA, 80-90% LCx s/p FER, 70-80% mLAD. EDP 25->15 post nitro, EF 50% Echo 05/2018 mildly dilated LV, mild conc LVH, with discrete upper septal component, overal nl LV function EF 55%LA pressure uncertain, no RWMA,nl RV, mild MR, at least mild pulm HTN, mild MRRVSP at least 48 mmHg echo 09/2018 nl LV size, mild to mod reduced LV function EF 40-45%, RV nl, nl biatrial size, mild MR, mild to mod TR, mild ao sclerosis, trivial pericardial effusion, lg pleural effusion echo 03/2019: nl lv/rv, mild tr, rvsp 30-40 CXR: clear lungs ecg: sr nl intervals nonspec tw changes no sig change prior a/p: 59M h/o DM, HTN, HLD, CAD s/p stents x2 in 2016, esrd on hd p/w dizziness. orthostatic dizziness, supine HTN -sx's started since beginning HD, ortho hypotension documented here - was on midodrine 2.5 mg TID at home, inc to 5 mg TID here 03/27, then up to 10 mg TID on 03/28 for 30 mmHg orthostatic BP drop - decreased midodrine to 7.5 mg TID for high BPs yesterday, monitor BP trend - dizziness also may be vestibular/balance related- complained of room spinning , now on meclizine - if orthostatic changes continue, will need to consider replacing vasodilators with non-vasodilating BB, CCB +/- clonidine. and/or northera or pyridostigmine. -recent echo unremarkable -no signs chf or acs -monitor on tele chronic systolic/diastolic chf: -stable vol status with HD, appears euvolemic -cont arb, bb esrd: -hd per renal CAD - s/p FER most recently 09/2017, 10/2017 - on aspirin and plavix, continue same. - cont bb, arb, statin - no chest pain, no signs ischemia PAD - hx L SFA stent, [place] of left 2017 - aspirin, statin, plavix HLD - cont statin
[2019-03-30] MEDS: ASPIRIN 81 MG CHEWABLE TABLETS PO SCH (12:32)
[2019-03-30] MEDS: LABETALOL HCL 100 MG TABLET (FP) PO SCH ×2 (12:32→21:51)
[2019-03-30] MEDS: CLOPIDOGREL BISULFATE 75 MG TABLET (FP) PO SCH (12:32)
[2019-03-30] MEDS: LOSARTAN POTASSIUM 50 MG TABLET (FP) PO SCH (12:32)
[2019-03-30] MEDS: FINASTERIDE 5 MG TABLET (FP) PO SCH (12:32)
[2019-03-30] MEDS: NIFEdipine E.R 60 MG TABLET (UD) PO SCH (12:32)
--- NOTE | 2019-03-30 12:55 | PN ---
Progress Note (short form) - Note Progress Note: Renal follow up for ESRD on HD Seen and examined during dialysis awake and alert BP 150/80, access with good flow UF goal 3.5L no acute complaints Vital Signs Temperature 98.8 F 03/30/19 15:09 Pulse Rate 79 03/30/19 15:09 Respiratory Rate 18 03/30/19 15:09 Blood Pressure 149/67 03/30/19 15:09 O2 Sat by Pulse Oximetry (%) 98 03/30/19 12:30 Intake & Output 03/27/19 03/28/19 03/29/19 03/30/19 23:59 23:59 23:59 23:59 Intake Total 9894 974 2888 650 Output Total 3500 3900 Balance -2120 900 1750 -3250 Weight 99.291 kg 97.069 kg 97.522 kg 97.976 kg NAD awake and alert neck supple RRR CTA soft NT/ND + LE edema CBC, BMP 03/30/19 08:40 03/30/19 08:40 Current Medications Aspirin (Asa -) 81 mg PO DAILY [facility] Last Admin: 03/30/19 12:32 Dose: 81 mg Atorvastatin Calcium (Lipitor -) 40 mg PO HS [facility] Last Admin: 03/29/19 22:14 Dose: 40 mg Clopidogrel Bisulfate (Plavix -) 75 mg PO DAILY [facility] Last Admin: 03/30/19 12:32 Dose: 75 mg Ergocalciferol (Drisdol -) 50,000 unit PO Fr [facility] Last Admin: 03/26/19 10:12 Dose: 50,000 unit Finasteride (Proscar -) 5 mg PO DAILY [facility] Last Admin: 03/30/19 12:32 Dose: 5 mg Hydralazine HCl (Apresoline -) 50 mg PO TID [facility] Last Admin: 03/30/19 05:06 Dose: 50 mg Sodium Chloride (Normal Saline -) 250 mls @ 3,000 mls/hr IV PRN PRN PRN Reason: Hypotension during Dialysis Stop: 03/27/19 15:47 Sodium Chloride (Normal Saline -) 250 mls @ 3,000 mls/hr IV PRN PRN PRN Reason: Hypotension during Dialysis Stop: 03/30/19 12:31 Insulin Aspart (Novolog Vial Sliding Scale -) 1 vial SQ ACHS [facility]; Protocol Last Admin: 03/30/19 12:34 Dose: 2 units Labetalol HCl (Normodyne -) 200 mg PO BID [facility] Last Admin: 03/30/19 12:32 Dose: 200 mg Losartan Potassium (Cozaar -) 50 mg PO DAILY [facility] Last Admin: 03/30/19 12:32 Dose: 50 mg Meclizine HCl (Antivert -) 12.5 mg PO BID [facility] Last Admin: 03/30/19 10:00 Dose: Not Given Midodrine 2.5 mg/ Midodrine 5 (mg) 7.5 mg PO TID-MID [facility] Last Admin: 03/30/19 10:00 Dose: Not Given Nifedipine (Procardia Xl -) 60 mg PO DAILY [facility] Last Admin: 03/30/19 12:32 Dose: 60 mg 58 year old gentleman with history of GABI requiring dialysis ( now maintained on HD), CHF, DM, Hypertension who presented from HD unit with dizziness. 1. Dizziness/Orthostatic hypotension 2. ESRD/GABI on HD 3. Anemia 4. Hypertension tolerating dialysis well. UF goal 3.5L BP moderated while on dialysis but was elevated pre-HD. To get antihypertensives post dialysis. Check orthostatics today. Monitor symptoms. Continue meclizine for now. fall percautions. Thank you Mansoor Cooper DO
[2019-03-30] MEDS ORDERED: INSULIN (NOVOLOG) ASPART 100 UNITS/ML 10ML VIAL ONE (16:35)
--- NOTE | 2019-03-30 17:28 | PN ---
Teaching Attending Note Name of Resident: Daryn Deluna ATTENDING PHYSICIAN STATEMENT I saw and evaluated the patient. I reviewed the resident's note and discussed the case with the resident. I agree with the resident's findings and plan as documented. SUBJECTIVE: Lightheadedness/Dizziness improving. no Headache/visual disturbance/ limb numbness/weakness/fever/chills. OBJECTIVE: Afebrile, Hemodynamically stable. Last Vital Signs Temp Pulse Resp BP Pulse Ox 98.8 F 79 18 149/67 98 03/30/19 15:03/30/19 15:03/30/19 15:03/30/19 15:03/30/19 12:30 HEENT: Atraumatic, Normocephalic. HEART: S1S2, RRR LUNGS: decreased air entry at bases. ABDOMEN: Soft, non-tender, normal BS EXTREMITIES: No calf tenderness NEURO: AAO x 3. Tone/power normal all extremities. Laboratory Results - last 24 hr 03/30/19 03/30/19 03/30/19 05:46 08:40 08:40 WBC 6.1 RBC 3.19 L Hgb 9.3 L Hct 28.4 L MCV 89.0 MCH 29.1 MCHC 32.7 RDW 12.7 Plt Count 244 MPV 7.5 Sodium 142 Potassium 4.3 Chloride 106 Carbon Dioxide 27 Anion Gap 9 BUN 94.0 H Creatinine 4.3 H Est GFR (CKD-EPI)AfAm 16.41 Est GFR (CKD-EPI)NonAf 14.16 POC Glucometer 117 Random Glucose 189 H Calcium 8.1 L 03/30/19 03/30/19 12:25 16:27 WBC RBC Hgb Hct MCV MCH MCHC RDW Plt Count MPV Sodium Potassium Chloride Carbon Dioxide Anion Gap BUN Creatinine Est GFR (CKD-EPI)AfAm Est GFR (CKD-EPI)NonAf POC Glucometer 156 202 Random Glucose Calcium Current Medications Generic Name Dose Route Start Last Admin Trade Name Freq PRN Reason Stop Dose Admin Aspirin 81 mg 03/26/19 10:00 03/30/19 12:32 Asa - PO 81 mg DAILY [facility] Administration Atorvastatin Calcium 40 mg 03/26/19 22:00 03/29/19 22:14 Lipitor - PO 40 mg HS [facility] Administration Clopidogrel Bisulfate 75 mg 03/26/19 10:00 03/30/19 12:32 Plavix - PO 75 mg DAILY [facility] Administration Ergocalciferol 50,000 unit 03/26/19 10:00 03/26/19 10:12 Drisdol - PO 50,000 unit Fr [facility] Administration Finasteride 5 mg 03/26/19 10:00 03/30/19 12:32 Proscar - PO 5 mg DAILY [facility] Administration Hydralazine HCl 50 mg 03/26/19 06:00 03/30/19 14:08 Apresoline - PO Not Given TID [facility]ANGE[facility]HA Sodium Chloride 250 mls @ 3,000 mls/hr 03/26/19 15:47 Normal Saline - IV 03/27/19 15:47 PRN PRN Hypotension during Dialysis Sodium Chloride 250 mls @ 3,000 mls/hr 03/29/19 12:31 Normal Saline - IV 03/30/19 12:31 PRN PRN Hypotension during Dialysis Insulin Aspart 1 vial 03/28/19 22:00 03/30/19 16:37 Novolog Vial Sliding Scale - SQ 4 units ACHS [facility] Administration Protocol Labetalol HCl 200 mg 03/26/19 10:00 03/30/19 12:32 Normodyne - PO 200 mg BID [facility] Administration Losartan Potassium 50 mg 03/26/19 10:00 03/30/19 12:32 Cozaar - PO 50 mg DAILY [facility] Administration Meclizine HCl 12.5 mg 03/29/19 12:27 03/30/19 10:00 Antivert - PO Not Given BID [facility] Midodrine 2.5 mg/ Midodrine 5 7.5 mg 03/29/19 14:00 03/30/19 14:08 mg PO Not Given TID-MID [facility] Nifedipine 60 mg 03/26/19 10:00 03/30/19 12:32 Procardia Xl - PO 60 mg DAILY [facility] Administration Home Medications Medication Instructions Recorded Ergocalciferol (Vitamin D2) 50,000 unit PO WEEKLY 09/25/18 [Vitamin D2] Aspirin [ASA -] 81 mg PO DAILY #30 tab.chew 11/20/18 Atorvastatin Ca [Lipitor] 40 mg PO HS #30 tablet 11/20/18 Clopidogrel Bisulfate [Plavix -] 75 mg PO DAILY #30 tablet 11/20/18 Finasteride [Proscar -] 5 mg PO DAILY #30 tablet 11/20/18 Isosorbide Mononitrate [Imdur -] 30 mg PO DAILY #30 tab.sr.24h 11/20/18 Tamsulosin HCl [Flomax] 0.4 mg PO DAILY #30 capsule 11/20/18 hydrALAZINE HCL [Apresoline -] 50 mg PO TID #90 tablet 11/20/18 Furosemide [Lasix -] 80 mg PO BID 01/23/19 Labetalol HCl [Normodyne -] 200 mg PO BID 01/23/19 Nifedipine ER [Procardia XL -] 60 mg PO DAILY 01/23/19 Glipizide [Glucotrol] 10 mg PO BID 03/19/19 Losartan Potassium [Cozaar -] 50 mg PO DAILY 03/19/19 Hydrochlorothiazide 50 mg PO DAILY 03/22/19 Midodrine HCl [Proamatine -] 2.5 mg PO TID 30 Days #90 tablet 03/23/19 ASSESSMENT AND PLAN: 59 year old male with history of ESRD, CAD s/p PCI/Stents, Chronic systolic heart failure, HTN, HLD, DM 2, Hx CVA, BPH, re-admitted with lightheadedness/ dizziness and orthostasis. 1. Lightheadedness, possibly secondary to Orthostatic hypotension versus BPPV Midodrine decreased to 7.5mg BID and Meclizine added Flomax/HCTZ held. Neuro eval pending. PT eval. 2. ESRD on HD - Continue HD 3. CAD, history of stents - Continue aspirin, Plavix, Lipitor, nifedipine. 4. Chronic systolic heart failure - Stable. Continue Cozaar and fluid removal via HD. 5. HTN - Continue Cozaar, Nifedipine, Labetalol, Hydralazine 6. HLD - Continue Lipitor 7. DM 2 - Continue Novolog sliding scale 8. BPH - Continue Proscar. Flomax held secondary to orthostatic hypotension 9. History of CVA - Continue aspirin, Plavix, Lipitor DVT Px - Heparin SQ
--- NOTE | 2019-03-30 20:40 | PN ---
Physical Exam: SUBJECTIVE: Patient seen and examined. Had episode of dizziness during PT evaluation yesterday while sitting upright, then refused PT treatment. Dizziness lasting ~1hour while laying in bed. Able to ambulate to restroom today w/o issues OBJECTIVE: Vital Signs Period Temp Pulse Resp BP Sys/Lopez Pulse Ox Last 24 Hr 98 F-98.8 F 71-81 18-18 146-188/57-95 98-98 GENERAL: A&Ox3. Cooperative HEAD: Normal with no signs of trauma. Mild temporal wasting EYES: extraocular movements intact, sclera anicteric. No ptosis. ENT: Ears normal, nares patent, moist mucous membranes. NECK: Trachea midline, full range of motion, supple. LUNGS: Breath sounds equal, clear to auscultation bilaterally, no wheezes, no crackles, no accessory muscle use. HEART: Regular rate and rhythm, S1, S2 without murmur, rub or gallop. ABDOMEN: Soft, nontender, nondistended, no guarding, no rebound, no hepatosplenomegaly, no masses. EXTREMITIES: DP 1+ b/l; Left foot with indurated nondraining wound with surrounding callus at the plantar forefoot, nonTTP, no foul odor. RUE dorsal surface with ecchymotic patch ~10cm length with firm nodular mobile subcutaneous lesions in a chain, no warm/tenderness NEUROLOGICAL: Normal speech, gait not observed. PSYCH: Normal mood, normal affect. SKIN: Warm, dry, normal turgor Laboratory Results - last 24 hr 03/30/19 03/30/19 03/30/19 05:46 08:40 08:40 WBC 6.1 RBC 3.19 L Hgb 9.3 L Hct 28.4 L MCV 89.0 MCH 29.1 MCHC 32.7 RDW 12.7 Plt Count 244 MPV 7.5 Sodium 142 Potassium 4.3 Chloride 106 Carbon Dioxide 27 Anion Gap 9 BUN 94.0 H Creatinine 4.3 H Est GFR (CKD-EPI)AfAm 16.41 Est GFR (CKD-EPI)NonAf 14.16 POC Glucometer 117 Random Glucose 189 H Calcium 8.1 L 03/30/19 03/30/19 12:25 16:27 WBC RBC Hgb Hct MCV MCH MCHC RDW Plt Count MPV Sodium Potassium Chloride Carbon Dioxide Anion Gap BUN Creatinine Est GFR (CKD-EPI)AfAm Est GFR (CKD-EPI)NonAf POC Glucometer 156 202 Random Glucose Calcium Active Medications Generic Name Dose Route Start Last Admin Trade Name Freq PRN Reason Stop Dose Admin Aspirin 81 mg 03/26/19 10:00 03/30/19 12:32 Asa - PO 81 mg DAILY SANGEETHA Administration Atorvastatin Calcium 40 mg 03/26/19 22:00 03/29/19 22:14 Lipitor - PO 40 mg HS SANGEETHA Administration Clopidogrel Bisulfate 75 mg 03/26/19 10:00 03/30/19 12:32 Plavix - PO 75 mg DAILY S[facility] Administration Ergocalciferol 50,000 unit 03/26/19 10:00 03/26/19 10:12 Drisdol - PO 50,000 unit Fr [facility] Administration Finasteride 5 mg 03/26/19 10:00 03/30/19 12:32 Proscar - PO 5 mg DAILY [facility] Administration Heparin Sodium (Porcine) 5,000 unit 03/30/19 22:00 Heparin - SQ BID S[facility] Hydralazine HCl 50 mg 03/26/19 06:00 03/30/19 14:08 Apresoline - PO Not Given TID S[facility] Sodium Chloride 250 mls @ 3,000 mls/hr 03/29/19 12:31 Normal Saline - IV 03/30/19 12:31 PRN PRN Hypotension during Dialysis Insulin Aspart 1 vial 03/28/19 22:00 03/30/19 16:37 Novolog Vial Sliding Scale - SQ 4 units ACHS [facility] Administration Protocol Labetalol HCl 200 mg 03/26/19 10:00 03/30/19 12:32 Normodyne - PO 200 mg BID [facility] Administration Losartan Potassium 50 mg 03/26/19 10:00 03/30/19 12:32 Cozaar - PO 50 mg DAILY [facility] Administration Meclizine HCl 12.5 mg 03/29/19 12:27 03/30/19 10:00 Antivert - PO Not Given BID [facility] Midodrine 2.5 mg/ Midodrine 5 7.5 mg 03/29/19 14:00 03/30/19 19:35 mg PO Not Given TID-MID [facility] Nifedipine 60 mg 03/26/19 10:00 03/30/19 12:32 Procardia Xl - PO 60 mg DAILY [facility] Administration Vital Signs Temp 98.8 F 03/30/19 15:09 Pulse 79 03/30/19 15:09 Resp 18 03/30/19 15:09 BP 149/67 03/30/19 15:09 Pulse Ox 98 03/30/19 12:30 Intake & Output 03/29/19 03/30/19 03/30/19 23:59 11:59 23:59 Intake Total 450 450 200 Output Total 3900 Balance 450 450 -3700 Weight 97.976 kg Intake: IV 200 200 s/l 200 200 Oral 450 250 Output: Fluid Removed, 3900 Hemodialysis Other: Voiding Method Urinal Urinal # Unmeasured Voids Void 0 Bowel Movement No No Weight Measurement Method Built in [facility] ASSESSMENT/PLAN: 58 y/o male with PMH ESRD (on HD TuThSa via R Permacath, see's Dr. Quiroz), CAD ( s/p 2 FER in 2018 on ASA/clopidogrel), CHF (Last EF 09/22 40-45%), CVA (2018), DMII, HTN, HLD whom admitted for recurring dizziness following dialysis. #Dizziness -Continue physical therapy, Patient advised not to refuse -Hold home does HCTZ, Tamsulosin -Midodrine 10mg TID -Cardio consulted, appreciate rec's -Neurology consulted, appreciate recs -Consider Vestibular rehab after d/c #ESRD on HD ([facility]) -Nephro (Dr. Quiroz) consulted, appreciate recs: --No acute need for dialysis today, next dialysis is planned for tomorrow. --Pt now with room spinning sensation, will add meclizine BID today and monitor for improvement in symptoms --Titrate down midodrine given supine hypertension --holding RICHARD with HD yesterday -Renally dose all meds, CrCL calculated 18 -Avoid nephrotoxic meds (NSAIDs) -Renal diet #CAD (s/p 2 FER) -Continue ASA, Clopidogrel, Statin, Imdur - s/p FER most recently 09/2017, 10/2017 -Cardio recs(Dr Perez): -- trend BP, Midodrine 7.5mg TID -- consider pyridostigmine (doesn't tend to raise resting bp's) or droxidopa (can cause HTN) if ok in dialysis pt 58 y/o male with PMH ESRD (on HD TuThSa via R Permacath, see's Dr. Quiroz), CAD ( s/p 2 FER in 2018 on ASA/clopidogrel), CHF (Last EF 09/22 40-45%), CVA (2018), DMII, HTN, HLD whom admitted for recurring dizziness following dialysis. #Dizziness -Continue physical therapy, Patient advised not to refuse -Hold home does HCTZ, Tamsulosin -Midodrine 10mg TID -Cardio consulted, appreciate rec's -Neurology consulted, appreciate recs -Consider Vestibular rehab after d/c #ESRD on HD ([facility]) -Nephro (Dr. Quiroz) consulted, appreciate recs: --No acute need for dialysis today, next dialysis is planned for tomorrow. --Pt now with room spinning sensation, will add meclizine BID today and monitor for improvement in symptoms --Titrate down midodrine given supine hypertension --holding RICHARD with HD yesterday -Renally dose all meds, CrCL calculated 18 -Avoid nephrotoxic meds (NSAIDs) -Renal diet #CAD (s/p 2 FER) -Continue ASA, Clopidogrel, Statin, Imdur - s/p FER most recently 09/2017, 10/2017 -Cardio recs(Dr Perez): -- trend BP, consider reducing Midodrine if SBP persisting >180-190 -- consider pyridostigmine (doesn't tend to raise resting bp's) or droxidopa (can cause HTN) if ok in dialysis pt -no signs of acute chf or acs -monitor on tele #chronic PAD - hx L SFA 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, 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 - aspirin, statin, plavix #HTN -Currently normotensive, Continue home meds #HLD - cont statin #CHF (Last EF 03/25 55-60%) -Currently not in exacerbation -stable vol status with HD -Continue home dose Labetalol 200mg BID, Lasix 80mg BID #DMII -Hold oral hypoglycemics -ISS BGMs ACHS #BPH -Continue Finasteride -Hold tamsulosin #possible UTI >UCX(03/25/19): Group D Strep vs Enterococcus - hold Abx for now as pt is asymptomatic, afebrile, no leukocytosis #FEN -No standing fluids -Replete lytes PRN -Renal diet #PPx -DVT: Heparin SQ Dispo: Med-Surg; Problem List - Problems (1) Lightheaded Code(s): R42 - DIZZINESS AND GIDDINESS (2) CKD (chronic kidney disease) stage 4, GFR 15-29 ml/min Code(s): N18.4 - CHRONIC KIDNEY DISEASE, STAGE 4 (SEVERE) (3) DVT prophylaxis Code(s): [id number] - (4) ESRD (end stage renal disease) Code(s): N18.6 - END STAGE RENAL DISEASE (5) Weakness Code(s): R53.1 - WEAKNESS (6) Hypertension Code(s): I10 - ESSENTIAL (PRIMARY) HYPERTENSION Qualifiers: Visit type - Emergency Visit Emergency Visit: No - New Patient This patient is new to me today: No - Critical Care Critical Care patient: No ATTENDING PHYSICIAN STATEMENT I saw and evaluated the patient. I reviewed the resident's note and discussed the case with the resident. I agree with the resident's findings and plan as documented. SUBJECTIVE: OBJECTIVE: ASSESSMENT AND PLAN:
[2019-03-30] MEDS: HEPARIN NA (PORCINE) 5,000 UNITS/ML 1ML VIAL SQ SCH (21:51)
[2019-03-30] MEDS: ATORVASTATIN CA 40 MG TABLET (FP) PO SCH (21:51)
[2019-03-31 03:16] VITALS: PULSE 75
[2019-03-31] MEDS: INSULIN SLIDING SCALE (NOVOLOG) 1 VIAL SQ SCH ×3 (06:26→17:37)
[2019-03-31] MEDS: hydrALAZINE HCL 50 MG TABLET (FP) PO SCH ×2 (06:26→14:58)
[2019-03-31] MEDS: CLOPIDOGREL BISULFATE 75 MG TABLET (FP) PO SCH (09:28)
[2019-03-31] MEDS: LOSARTAN POTASSIUM 50 MG TABLET (FP) PO SCH (09:28)
[2019-03-31] MEDS: ASPIRIN 81 MG CHEWABLE TABLETS PO SCH (09:28)
[2019-03-31] MEDS: HEPARIN NA (PORCINE) 5,000 UNITS/ML 1ML VIAL SQ SCH (09:28)
[2019-03-31] MEDS: FINASTERIDE 5 MG TABLET (FP) PO SCH (09:29)
[2019-03-31] MEDS: MECLIZINE HCL 12.5 MG TABLET PO SCH (09:30)
[2019-03-31] MEDS: LABETALOL HCL 100 MG TABLET (FP) PO SCH (09:30)
[2019-03-31] MEDS: MIDODRINE HCL 2.5 MG, MIDODRINE HCL 5 MG PO SCH ×2 (09:31→14:57)
[2019-03-31] MEDS: NIFEdipine E.R 60 MG TABLET (UD) PO SCH (09:31)
--- NOTE | 2019-03-31 09:53 | CON.NEURO ---
Consult - History of Present Illness History of Present Illness: 59 year old male with PMH significant for ESRD (on HD TuThSa via RIGHT Permacath , last HD on Friday, Dr. Quiroz), CAD (s/p 2 FER in 2018 on ASA/Clopidogrel), CHF (Last EF 03/25 55%), CVA (2018), DM (Glipizide), HTN, HLD. He presented to the ER on 03/24 with complaints of an episode of dizziness after a session of HD today at 7PM. He states that he was undergoing dialysis and began to feel nauseated and dizzy in his chair, after dialysis was completed and he got up, his symptoms worsened and he was brought to [facility]. This AM, awake, but feels minor "swirling "--feels sx started after dialysis, 2 months ago, worse in last 3 weeks, tenmporally sx worse after dialysis and when he stands up. denies focal motor /sesnory complaints, tinnitus , hearing loss , or JONES. 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 [place] History of Recent Travel: No Home Medications - Allergies Allergies/Adverse Reactions: Allergies Allergy/AdvReac Type Severity Reaction Status Date / Time cashew nut Allergy Verified 03/25/19 20:05 - Home Medications Home Medications: Ambulatory Orders Ergocalciferol (Vitamin D2) [Vitamin D2] 50,000 unit PO WEEKLY 09/25/18 Aspirin [ASA -] 81 mg PO DAILY #30 tab.chew 11/20/18 Atorvastatin Ca [Lipitor] 40 mg PO HS #30 tablet 11/20/18 Clopidogrel Bisulfate [Plavix -] 75 mg PO DAILY #30 tablet 11/20/18 Finasteride [Proscar -] 5 mg PO DAILY #30 tablet 11/20/18 Isosorbide Mononitrate [Imdur -] 30 mg PO DAILY #30 tab.sr.24h 11/20/18 Tamsulosin HCl [Flomax] 0.4 mg PO DAILY #30 capsule 11/20/18 hydrALAZINE HCL [Apresoline -] 50 mg PO TID #90 tablet 11/20/18 Furosemide [Lasix -] 80 mg PO BID 01/23/19 Labetalol HCl [Normodyne -] 200 mg PO BID 01/23/19 Nifedipine ER [Procardia XL -] 60 mg PO DAILY 01/23/19 Glipizide [Glucotrol] 10 mg PO BID 03/19/19 Losartan Potassium [Cozaar -] 50 mg PO DAILY 03/19/19 Hydrochlorothiazide 50 mg PO DAILY 03/22/19 Midodrine HCl [Proamatine -] 2.5 mg PO TID 30 Days #90 tablet 03/23/19 Physical Exam-Neuro Vital Signs: Vital Signs Temperature 98.8 F 03/31/19 06:00 Pulse Rate 75 03/31/19 06:00 Respiratory Rate 18 03/31/19 06:00 Blood Pressure 160/80 03/31/19 06:00 O2 Sat by Pulse Oximetry (%) 98 03/30/19 22:00 Labs: CBC, BMP 03/30/19 08:40 03/30/19 08:40 - Neuro Exam Level Of Consciousness: Yes: Alert (awake, alert, EOMI, no facial, no nystagmus , no dysrthria, n o drift, walks with assist ok ) Imaging - Results Cat Scan: Report Reviewed, Image Reviewed Problem List - Problems (1) Vertigo Code(s): R42 - DIZZINESS AND GIDDINESS (2) Anemia Code(s): D64.9 - ANEMIA, UNSPECIFIED Qualifiers: Anemia type: unspecified type Qualified Code(s): D64.9 - Anemia, unspecified (3) CHF (congestive heart failure) Code(s): I50.9 - HEART FAILURE, UNSPECIFIED Qualifiers: Heart failure type: systolic Heart failure chronicity: acute on chronic Qualified Code(s): I50.23 - Acute on chronic systolic (congestive) heart failure (4) CKD (chronic kidney disease) stage 4, GFR 15-29 ml/min Code(s): N18.4 - CHRONIC KIDNEY DISEASE, STAGE 4 (SEVERE) Assessment/Plan 59 year old male with PMH significant for ESRD (on HD TuThSa via RIGHT Permacath , last HD on Friday, Dr. Quiroz), CAD (s/p 2 FER in 2018 on ASA/Clopidogrel), CHF (Last EF 03/25 55%), CVA (2018), DM (Glipizide), HTN, HLD. He presented to the ER ojn 03/24 with complaints of an episode of dizziness after a session of HD today at 7PM. He states that he was undergoing dialysis and began to feel nauseated and dizzy in his chair, after dialysis was completed and he got up, his symptoms worsened and he was brought to [facility]. AP : Vertiginous Sx , appaer peripheral, worse after dialysis and with orthostasis, suspect hydrodynamic in nature. nonfocal exam, and no central features observed; no ataxia etc less likely posterior circulation in nature, suggest getting MRI /MRA head and NEck , can be done outpt if planning for DC and can FU in office for results etc spoke to resident thanks DR GRULLON
--- NOTE | 2019-03-31 11:55 | PN ---
Progress Note (short form) - Note Progress Note: no chest pain, palps, dyspnea Current Medications Aspirin (Asa -) 81 mg PO DAILY [facility] Last Admin: 03/31/19 09:28 Dose: 81 mg Atorvastatin Calcium (Lipitor -) 40 mg PO HS [facility] Last Admin: 03/30/19 21:51 Dose: 40 mg Clopidogrel Bisulfate (Plavix -) 75 mg PO DAILY [facility] Last Admin: 03/31/19 09:28 Dose: 75 mg Ergocalciferol (Drisdol -) 50,000 unit PO Fr [facility] Last Admin: 03/26/19 10:12 Dose: 50,000 unit Finasteride (Proscar -) 5 mg PO DAILY [facility] Last Admin: 03/31/19 09:29 Dose: 5 mg Heparin Sodium (Porcine) (Heparin -) 5,000 unit SQ BID [facility] Last Admin: 03/31/19 09:28 Dose: 5,000 unit Hydralazine HCl (Apresoline -) 50 mg PO TID [facility] Last Admin: 03/31/19 06:26 Dose: 50 mg Sodium Chloride (Normal Saline -) 250 mls @ 3,000 mls/hr IV PRN PRN PRN Reason: Hypotension during Dialysis Stop: 03/30/19 12:31 Insulin Aspart (Novolog Vial Sliding Scale -) 1 vial SQ ACHS [facility]; Protocol Last Admin: 03/31/19 06:26 Dose: 2 units Labetalol HCl (Normodyne -) 200 mg PO BID [facility] Last Admin: 03/31/19 09:30 Dose: 200 mg Losartan Potassium (Cozaar -) 50 mg PO DAILY [facility] Last Admin: 03/31/19 09:28 Dose: 50 mg Meclizine HCl (Antivert -) 12.5 mg PO BID [facility] Last Admin: 03/31/19 09:30 Dose: 12.5 mg Midodrine 2.5 mg/ Midodrine 5 (mg) 7.5 mg PO TID-MID [facility] Last Admin: 03/31/19 09:31 Dose: 7.5 mg Nifedipine (Procardia Xl -) 60 mg PO DAILY [facility] Last Admin: 03/31/19 09:31 Dose: 60 mg Vital Signs Period Temp Pulse Resp BP Sys/Lopez Pulse Ox Last 24 Hr 98.0 F-98.8 F 72-79 18-20 142-160/67-88 98-98 Constitutional: Yes: Well Nourished, No Distress, Calm Cardiovascular: Yes: Regular Rate and Rhythm, S1, S2. No: Gallop, Murmur Respiratory: Yes: Regular, CTA Bilaterally. No: Accessory Muscle Use, Rales Extremities: No: Cold Edema: No Neurological: Yes: Alert, Oriented Psychiatric: No: Agitated Assessment/Plan [facility] 10/2017 planned staged PCI of mid LAD [facility] 09/2017 (for inf ischemia on MPI) mild RCA, 80-90% LCx s/p FER, 70-80% mLAD. EDP 25->15 post nitro, EF 50% Echo 05/2018 mildly dilated LV, mild conc LVH, with discrete upper septal component, overal nl LV function EF 55%LA pressure uncertain, no RWMA,nl RV, mild MR, at least mild pulm HTN, mild MRRVSP at least 48 mmHg echo 09/2018 nl LV size, mild to mod reduced LV function EF 40-45%, RV nl, nl biatrial size, mild MR, mild to mod TR, mild ao sclerosis, trivial pericardial effusion, lg pleural effusion echo 03/2019: nl lv/rv, mild tr, rvsp 30-40 CXR: clear lungs ecg: sr nl intervals nonspec tw changes no sig change prior a/p: 59M h/o DM, HTN, HLD, CAD s/p stents x2 in 2016, esrd on hd p/w dizziness. orthostatic dizziness, supine HTN -sx's started since beginning HD, ortho hypotension documented here - was on midodrine 2.5 mg TID at home, inc to 5 mg TID here 03/27, then up to 10 mg TID on 03/28 for 30 mmHg orthostatic BP drop - decreased midodrine to 7.5 mg TID for high BPs, monitor BP trend - dizziness also may be vestibular/balance related- complained of room spinning , now on meclizine, neuro following - if orthostatic changes continue, will need to consider replacing vasodilators with non-vasodilating BB, CCB +/- clonidine. and/or northera or pyridostigmine. -recent echo unremarkable -no signs chf or acs chronic systolic/diastolic chf: -stable vol status with HD, appears euvolemic -cont arb, bb esrd: -hd per renal CAD - s/p FER most recently 09/2017, 10/2017 - on aspirin and plavix, continue same. 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
[2019-03-31 14:19] VITALS: BP 151/75; TEMP 97.9
--- NOTE | 2019-03-31 14:32 | PN ---
Progress Note (short form) - Note Progress Note: Renal follow up for ESRD on HD Seen and examined at the bedside feels well denies any dizziness, or lightheadedness today was sitting in chair earlier no sob, cp, fever, chills Vital Signs Temperature 97.9 F 03/31/19 14:17 Pulse Rate 75 03/31/19 14:17 Respiratory Rate 18 03/31/19 14:17 Blood Pressure 151/75 03/31/19 14:17 O2 Sat by Pulse Oximetry (%) 98 03/30/19 22:00 Intake & Output 03/28/19 03/29/19 03/30/19 03/31/19 23:59 23:59 23:59 23:59 Intake Total 900 1750 888 645 Output Total 3900 Balance 900 1750 -3012 645 Weight 97.069 kg 97.522 kg 97.976 kg 97.125 kg NAD awake and alert neck supple RRR CTA soft NT/ND + LE edema CBC, BMP 03/30/19 08:40 03/30/19 08:40 Current Medications Aspirin (Asa -) 81 mg PO DAILY [facility] Last Admin: 03/31/19 09:28 Dose: 81 mg Atorvastatin Calcium (Lipitor -) 40 mg PO HS [facility] Last Admin: 03/30/19 21:51 Dose: 40 mg Clopidogrel Bisulfate (Plavix -) 75 mg PO DAILY [facility] Last Admin: 03/31/19 09:28 Dose: 75 mg Ergocalciferol (Drisdol -) 50,000 unit PO Fr [facility] Last Admin: 03/26/19 10:12 Dose: 50,000 unit Finasteride (Proscar -) 5 mg PO DAILY [facility] Last Admin: 03/31/19 09:29 Dose: 5 mg Heparin Sodium (Porcine) (Heparin -) 5,000 unit SQ BID [facility] Last Admin: 03/31/19 09:28 Dose: 5,000 unit Hydralazine HCl (Apresoline -) 50 mg PO TID [facility] Last Admin: 03/31/19 06:26 Dose: 50 mg Sodium Chloride (Normal Saline -) 250 mls @ 3,000 mls/hr IV PRN PRN PRN Reason: Hypotension during Dialysis Stop: 03/30/19 12:31 Insulin Aspart (Novolog Vial Sliding Scale -) 1 vial SQ ACHS [facility]; Protocol Last Admin: 03/31/19 12:23 Dose: Not Given Labetalol HCl (Normodyne -) 200 mg PO BID [facility] Last Admin: 03/31/19 09:30 Dose: 200 mg Losartan Potassium (Cozaar -) 50 mg PO DAILY [facility] Last Admin: 03/31/19 09:28 Dose: 50 mg Meclizine HCl (Antivert -) 12.5 mg PO BID [facility] Last Admin: 03/31/19 09:30 Dose: 12.5 mg Midodrine 2.5 mg/ Midodrine 5 (mg) 7.5 mg PO TID-MID [facility] Last Admin: 03/31/19 09:31 Dose: 7.5 mg Nifedipine (Procardia Xl -) 60 mg PO DAILY [facility] Last Admin: 03/31/19 09:31 Dose: 60 mg 58 year old gentleman with history of GABI requiring dialysis ( now maintained on HD), CHF, DM, Hypertension who presented from HD unit with dizziness. 1. Dizziness/Orthostatic hypotension 2. ESRD/GABI on HD 3. Anemia 4. Hypertension no acute need for dialysis today, next treatment planned for tomorrow. Check orthostatics today as pt is symptomatically improved. continue meclizine and midodrine for now. continue present antihypertensives discharge planning as per primary team if orthostatics are normal. Thank you Mansoor Cooper DO
--- NOTE | 2019-03-31 14:59 | DS ---
Physical Exam: SUBJECTIVE: Patient seen and examined OBJECTIVE: Vital Signs Period Temp Pulse Resp BP Sys/Lopez Pulse Ox Last 24 Hr 97.9 F-98.8 F 75-79 18-20 142-160/67-80 98 PHYSICAL EXAM GENERAL: A&Ox3. Cooperative HEAD: Normal with no signs of trauma. Mild temporal wasting EYES: extraocular movements intact, sclera anicteric. No ptosis. ENT: Ears normal, nares patent, moist mucous membranes. NECK: Trachea midline, full range of motion, supple. LUNGS: Breath sounds equal, clear to auscultation bilaterally, no wheezes, no crackles, no accessory muscle use. HEART: Regular rate and rhythm, S1, S2 without murmur, rub or gallop. ABDOMEN: Soft, nontender, nondistended, no guarding, no rebound, no hepatosplenomegaly, no masses. EXTREMITIES: DP 1+ b/l; Left foot with indurated nondraining wound with surrounding callus at the plantar forefoot, nonTTP, no foul odor. RUE dorsal surface with ecchymotic patch ~10cm length with firm nodular mobile subcutaneous lesions in a chain, no warm/tenderness NEUROLOGICAL: Normal speech, gait not observed. PSYCH: Normal mood, normal affect. SKIN: Warm, dry, normal turgor LABS Laboratory Results - last 24 hr 03/30/19 03/30/19 16:27 20:40 POC Glucometer 202 195 HOSPITAL COURSE: 58 y/o male with PMH ESRD (on HD TuThSa via R Permacath, see's Dr. Quiroz), CAD ( s/p 2 FER in 2018 on ASA/clopidogrel), CHF (Last EF 09/22 40-45%), CVA (2018), DMII, HTN, HLD whom admitted for recurring dizziness following dialysis. Was positive for orthostatics. Bloodwork showed chronic anemia, likely 2/2 ESRD. Left foot had a chronic plantar wound that did not have any acute processes. Cardiology and Nephro consulted which recommended adjustment of midodrine. Neurology was consulted, who recommended MRA/MRI of the head and neck, which could be done as outpatient. Patient's symptoms of dizziness with sensation of room spinning improved. Demonstrated ability to ambulate on own, tolerate diet. Determined to be safe for discharge home. Date of Admission:03/26/19 Date of Discharge: 03/31/19 Discharge Summary Reason For Visit: LIGHTHEADEDNESS, WEAKNESS Current Active Problems Lightheaded (Acute) Vertigo (Acute) Condition: Stable - Instructions Diet, Activity, Other Instructions: You were evaluated in the Hospital for dizziness with sensation with spinning, related to completion of your hemodialysis session. You underwent an EKG and xray of the chest that showed no major abnormalities. Your Left foot xray showed chronic changes from your toe amputation, chronic arthritic changes in your foot. Physical exam was not suspicious for any source of infection. You had new onset of firm nodules under your Right upper arm that were not related to any recent trauma or obvious sources of infection. Dr Quiroz(Nephrology) made some changes to your blood pressure medications. Neurology evaluated you and determined that you could continue evaluation at an outpatient basis with a MRI and MRA of the head and neck. follow-up appointments, please call and arrange to see: -your PCP within 1 week of discharge -Dr Ponce(Vascular, wound) within 1 week of discharge -Dr Pascual(Neuro) within 1 week of discharge -Dr Hernandez(Cardiology) within 1 week of discharge Changes in Medications: -START taking: meclizine[ANTIVERT] 12.5mg , twice daily -CHANGE how you take: midodrine 7.5mg, three times daily(note: you were prescribed 2.5mg tablets, please take 3 tablets for a total of 7.5mg) -STOP taking: furosemide[LASIX], hydralazine, tamsulosin[FLOMAX] -continue with other home medications Outpatient follow-up imaging: - MRI and MRA of the head and neck -- to be determined by Neurology(Dr Pascual) Other instructions: -normal activity as tolerated -renal diet as tolerated PRECAUTIONS: please seek medical attention or go to the ER if you experience... -severe, unremitting dizziness with nausea and vomitting that does not resolve -fever, chills, severe pain -severe confusion Referrals: Jacinto Pascual DO [Staff Physician] - Edvin Hernandez MD [Staff Physician] - Luis Manuel Ponce DO [Staff Physician] - Disposition: HOME - Home Medications Comprehensive Discharge Medication List: Ambulatory Orders Ergocalciferol (Vitamin D2) [Vitamin D2] 50,000 unit PO WEEKLY 09/25/18 Aspirin [ASA -] 81 mg PO DAILY #30 tab.chew 11/20/18 Atorvastatin Ca [Lipitor] 40 mg PO HS #30 tablet 11/20/18 Clopidogrel Bisulfate [Plavix -] 75 mg PO DAILY #30 tablet 11/20/18 Finasteride [Proscar -] 5 mg PO DAILY #30 tablet 11/20/18 Isosorbide Mononitrate [Imdur -] 30 mg PO DAILY #30 tab.sr.24h 11/20/18 hydrALAZINE HCL [Apresoline -] 50 mg PO TID #90 tablet 11/20/18 Furosemide [Lasix -] 80 mg PO BID 01/23/19 Labetalol HCl [Normodyne -] 200 mg PO BID 01/23/19 Nifedipine ER [Procardia XL -] 60 mg PO DAILY 01/23/19 Glipizide [Glucotrol] 10 mg PO BID 03/19/19 Losartan Potassium [Cozaar -] 50 mg PO DAILY 03/19/19 Meclizine HCl [Antivert -] 12.5 mg PO BID #60 tablet 03/31/19 Midodrine HCl [Proamatine -] 7.5 mg PO TID-MID tablet 03/31/19 Problem List - Problems (1) Lightheaded Code(s): R42 - DIZZINESS AND GIDDINESS (2) CKD (chronic kidney disease) stage 4, GFR 15-29 ml/min Code(s): N18.4 - CHRONIC KIDNEY DISEASE, STAGE 4 (SEVERE) (3) DVT prophylaxis Code(s): VJT8206 - (4) ESRD (end stage renal disease) Code(s): N18.6 - END STAGE RENAL DISEASE (5) Weakness Code(s): R53.1 - WEAKNESS (6) Hypertension Code(s): I10 - ESSENTIAL (PRIMARY) HYPERTENSION Qualifiers: - Discharge Referral Referred to [facility] No ATTENDING PHYSICIAN STATEMENT I saw and evaluated the patient. I reviewed the resident's note and discussed the case with the resident. I agree with the resident's findings and plan as documented. SUBJECTIVE: OBJECTIVE: ASSESSMENT AND PLAN:
--- NOTE | 2019-03-31 17:34 | PN ---
Teaching Attending Note Name of Resident: Norma Zurita ATTENDING PHYSICIAN STATEMENT I saw and evaluated the patient. I reviewed the resident's note and discussed the case with the resident. I agree with the resident's findings and plan as documented. SUBJECTIVE: Lightheadedness/Dizziness improved. Ambulating steadily to bathroom etc without symptoms. No Headache/visual disturbance/limb numbness/weakness/ fever/chills. OBJECTIVE: Afebrile, Hemodynamically stable. Last Vital Signs Temp Pulse Resp BP Pulse Ox 97.9 F 75 18 151/75 98 03/31/19 14:17 03/31/19 14:17 03/31/19 14:17 03/31/19 14:17 03/31/19 09:00 HEENT: Atraumatic. No nystagmus. EOMI. HEART: S1S2, RRR LUNGS: decreased air entry at bases. ABDOMEN: Soft, non-tender, normal BS EXTREMITIES: No calf tenderness. chronic ulcer LLE. NEURO: AAO x 3. Tone/power normal all extremities. Laboratory Tests 03/25/19 03/25/19 03/25/19 01:00 21:35 21:35 WBC 7.8 RBC 3.58 L Hgb 10.4 L Hct 31.6 L MCV 88.2 MCH 29.1 MCHC 33.0 RDW 13.2 Plt Count 212 D MPV 7.6 Absolute Neuts (auto) 5.8 Neutrophils % 74.6 D Lymphocytes % 13.9 D Monocytes % 8.4 Eosinophils % 2.3 Basophils % 0.8 Nucleated RBC % 0 ESR Sodium Cancelled Potassium Cancelled Chloride Cancelled Carbon Dioxide Cancelled Anion Gap Cancelled BUN Cancelled Creatinine Cancelled Est GFR (CKD-EPI)AfAm Cancelled Est GFR (CKD-EPI)NonAf Cancelled POC Glucometer Random Glucose Cancelled Calcium Cancelled Total Bilirubin Cancelled AST Cancelled ALT Cancelled Alkaline Phosphatase Cancelled Troponin I Cancelled Total Protein Cancelled Albumin Cancelled Urine Color Yellow Urine Appearance Clear Urine pH 6.0 Ur Specific [place] 1.020 Urine Protein 4+ H Urine Glucose (UA) 1+ H Urine Ketones Negative Urine Blood Trace Urine Nitrite Negative Urine Bilirubin Negative Urine Urobilinogen 1.0 Ur Leukocyte Esterase Negative Urine WBC (Auto) 2 Urine RBC (Auto) 13 Urine Casts (Auto) 25 U Pathogenic Cast Auto None seen U Epithel Cells (Auto) 3.5 Urine Bacteria (Auto) 0 Hep Bs Antigen Hep C Ab Diagnostic 03/25/19 03/25/19 03/26/19 23:00 23:00 07:00 WBC 5.8 RBC 3.60 L Hgb 10.4 L Hct 32.1 L MCV 89.2 MCH 29.0 MCHC 32.5 RDW 13.1 Plt Count 215 MPV 7.4 L Absolute Neuts (auto) 3.2 Neutrophils % 55.1 D Lymphocytes % 29.0 D Monocytes % 10.4 H Eosinophils % 4.3 D Basophils % 1.2 Nucleated RBC % 0 ESR 38 H Sodium 139 Potassium 4.0 Chloride 103 Carbon Dioxide 29 Anion Gap 7 L BUN 42.2 H Creatinine 2.9 H Est GFR (CKD-EPI)AfAm 26.42 Est GFR (CKD-EPI)NonAf 22.80 POC Glucometer Random Glucose 217 H Calcium 8.0 L Total Bilirubin 0.5 AST 34 ALT 89 H Alkaline Phosphatase 112 Troponin I < 0.02 Total Protein 7.3 Albumin 3.1 L Urine Color Urine Appearance Urine pH Ur Specific [place] Urine Protein Urine Glucose (UA) Urine Ketones Urine Blood Urine Nitrite Urine Bilirubin Urine Urobilinogen Ur Leukocyte Esterase Urine WBC (Auto) Urine RBC (Auto) Urine Casts (Auto) U Pathogenic Cast Auto U Epithel Cells (Auto) Urine Bacteria (Auto) Hep Bs Antigen Hep C Ab Diagnostic 03/26/19 03/27/19 03/27/19 07:00 07:50 08:10 WBC RBC Hgb Hct MCV MCH MCHC RDW Plt Count MPV Absolute Neuts (auto) Neutrophils % Lymphocytes % Monocytes % Eosinophils % Basophils % Nucleated RBC % ESR Sodium 140 141 Potassium 4.1 4.1 Chloride 105 108 H Carbon Dioxide 26 25 Anion Gap 9 8 BUN 51.2 H 65.4 H Creatinine 3.1 H 3.7 H Est GFR (CKD-EPI)AfAm 24.38 19.68 Est GFR (CKD-EPI)NonAf 21.03 16.98 POC Glucometer Random Glucose 67 L 94 Calcium 7.9 L 8.1 L Total Bilirubin 0.6 AST 33 ALT 83 H Alkaline Phosphatase 100 Troponin I Total Protein 7.2 Albumin 3.0 L Urine Color Urine Appearance Urine pH Ur Specific [place] Urine Protein Urine Glucose (UA) Urine Ketones Urine Blood Urine Nitrite Urine Bilirubin Urine Urobilinogen Ur Leukocyte Esterase Urine WBC (Auto) Urine RBC (Auto) Urine Casts (Auto) U Pathogenic Cast Auto U Epithel Cells (Auto) Urine Bacteria (Auto) Hep Bs Antigen Negative Hep C Ab Diagnostic 0.3 03/27/19 03/28/19 03/28/19 11:35 12:22 21:40 WBC RBC Hgb Hct MCV MCH MCHC RDW Plt Count MPV Absolute Neuts (auto) Neutrophils % Lymphocytes % Monocytes % Eosinophils % Basophils % Nucleated RBC % ESR Sodium Potassium Chloride Carbon Dioxide Anion Gap BUN 21.1 H Creatinine 1.5 H Est GFR (CKD-EPI)AfAm 58.63 Est GFR (CKD-EPI)NonAf 50.59 POC Glucometer 203 167 Random Glucose Calcium Total Bilirubin AST ALT Alkaline Phosphatase Troponin I Total Protein Albumin Urine Color Urine Appearance Urine pH Ur Specific [place] Urine Protein Urine Glucose (UA) Urine Ketones Urine Blood Urine Nitrite Urine Bilirubin Urine Urobilinogen Ur Leukocyte Esterase Urine WBC (Auto) Urine RBC (Auto) Urine Casts (Auto) U Pathogenic Cast Auto U Epithel Cells (Auto) Urine Bacteria (Auto) Hep Bs Antigen Hep C Ab Diagnostic 03/29/19 03/29/19 03/29/19 05:45 11:37 17:06 WBC RBC Hgb Hct MCV MCH MCHC RDW Plt Count MPV Absolute Neuts (auto) Neutrophils % Lymphocytes % Monocytes % Eosinophils % Basophils % Nucleated RBC % ESR Sodium Potassium Chloride Carbon Dioxide Anion Gap BUN Creatinine Est GFR (CKD-EPI)AfAm Est GFR (CKD-EPI)NonAf POC Glucometer 115 178 190 Random Glucose Calcium Total Bilirubin AST ALT Alkaline Phosphatase Troponin I Total Protein Albumin Urine Color Urine Appearance Urine pH Ur Specific [place] Urine Protein Urine Glucose (UA) Urine Ketones Urine Blood Urine Nitrite Urine Bilirubin Urine Urobilinogen Ur Leukocyte Esterase Urine WBC (Auto) Urine RBC (Auto) Urine Casts (Auto) U Pathogenic Cast Auto U Epithel Cells (Auto) Urine Bacteria (Auto) Hep Bs Antigen Hep C Ab Diagnostic 03/30/19 03/30/19 03/30/19 05:46 08:40 08:40 WBC 6.1 RBC 3.19 L Hgb 9.3 L Hct 28.4 L MCV 89.0 MCH 29.1 MCHC 32.7 RDW 12.7 Plt Count 244 MPV 7.5 Absolute Neuts (auto) Neutrophils % Lymphocytes % Monocytes % Eosinophils % Basophils % Nucleated RBC % ESR Sodium 142 Potassium 4.3 Chloride 106 Carbon Dioxide 27 Anion Gap 9 BUN 94.0 H Creatinine 4.3 H Est GFR (CKD-EPI)AfAm 16.41 Est GFR (CKD-EPI)NonAf 14.16 POC Glucometer 117 Random Glucose 189 H Calcium 8.1 L Total Bilirubin AST ALT Alkaline Phosphatase Troponin I Total Protein Albumin Urine Color Urine Appearance Urine pH Ur Specific [place] Urine Protein Urine Glucose (UA) Urine Ketones Urine Blood Urine Nitrite Urine Bilirubin Urine Urobilinogen Ur Leukocyte Esterase Urine WBC (Auto) Urine RBC (Auto) Urine Casts (Auto) U Pathogenic Cast Auto U Epithel Cells (Auto) Urine Bacteria (Auto) Hep Bs Antigen Hep C Ab Diagnostic 03/30/19 03/30/19 03/30/19 12:25 16:27 20:40 WBC RBC Hgb Hct MCV MCH MCHC RDW Plt Count MPV Absolute Neuts (auto) Neutrophils % Lymphocytes % Monocytes % Eosinophils % Basophils % Nucleated RBC % ESR Sodium Potassium Chloride Carbon Dioxide Anion Gap BUN Creatinine Est GFR (CKD-EPI)AfAm Est GFR (CKD-EPI)NonAf POC Glucometer 156 202 195 Random Glucose Calcium Total Bilirubin AST ALT Alkaline Phosphatase Troponin I Total Protein Albumin Urine Color Urine Appearance Urine pH Ur Specific [place] Urine Protein Urine Glucose (UA) Urine Ketones Urine Blood Urine Nitrite Urine Bilirubin Urine Urobilinogen Ur Leukocyte Esterase Urine WBC (Auto) Urine RBC (Auto) Urine Casts (Auto) U Pathogenic Cast Auto U Epithel Cells (Auto) Urine Bacteria (Auto) Hep Bs Antigen Hep C Ab Diagnostic 03/31/19 17:02 WBC RBC Hgb Hct MCV MCH MCHC RDW Plt Count MPV Absolute Neuts (auto) Neutrophils % Lymphocytes % Monocytes % Eosinophils % Basophils % Nucleated RBC % ESR Sodium Potassium Chloride Carbon Dioxide Anion Gap BUN Creatinine Est GFR (CKD-EPI)AfAm Est GFR (CKD-EPI)NonAf POC Glucometer 179 Random Glucose Calcium Total Bilirubin AST ALT Alkaline Phosphatase Troponin I Total Protein Albumin Urine Color Urine Appearance Urine pH Ur Specific [place] Urine Protein Urine Glucose (UA) Urine Ketones Urine Blood Urine Nitrite Urine Bilirubin Urine Urobilinogen Ur Leukocyte Esterase Urine WBC (Auto) Urine RBC (Auto) Urine Casts (Auto) U Pathogenic Cast Auto U Epithel Cells (Auto) Urine Bacteria (Auto) Hep Bs Antigen Hep C Ab Diagnostic Current Medications Generic Name Dose Route Start Last Admin Trade Name Freq PRN Reason Stop Dose Admin Aspirin 81 mg 03/26/19 10:00 03/31/19 09:28 Asa - PO 81 mg DAILY SANGEETHA Administration Atorvastatin Calcium 40 mg 03/26/19 22:00 03/30/19 21:51 Lipitor - PO 40 mg HS SANGEETHA Administration Clopidogrel Bisulfate 75 mg 03/26/19 10:00 03/31/19 09:28 Plavix - PO 75 mg DAILY SANGEETHA Administration Ergocalciferol 50,000 unit 03/26/19 10:00 03/26/19 10:12 Drisdol - PO 50,000 unit Fr SANGEETHA Administration Finasteride 5 mg 03/26/19 10:00 03/31/19 09:29 Proscar - PO 5 mg DAILY SANGEETHA Administration Heparin Sodium (Porcine) 5,000 unit 03/30/19 22:00 03/31/19 09:28 Heparin - SQ 5,000 unit BID SANGEETHA Administration Hydralazine HCl 50 mg 03/26/19 06:00 03/31/19 14:58 Apresoline - PO 50 mg TID SANGEETHA Administration Sodium Chloride 250 mls @ 3,000 mls/hr 03/29/19 12:31 Normal Saline - IV 03/30/19 12:31 PRN PRN Hypotension during Dialysis Insulin Aspart 1 vial 03/28/19 22:00 03/31/19 12:23 Novolog Vial Sliding Scale - SQ Not Given ACHS [facility] Protocol Labetalol HCl 200 mg 03/26/19 10:00 03/31/19 09:30 Normodyne - PO 200 mg BID SANGEETHA Administration Losartan Potassium 50 mg 03/26/19 10:00 03/31/19 09:28 Cozaar - PO 50 mg DAILY SANGEETHA Administration Meclizine HCl 12.5 mg 03/29/19 12:27 03/31/19 09:30 Antivert - PO 12.5 mg BID SANGEETHA Administration Midodrine 2.5 mg/ Midodrine 5 7.5 mg 03/29/19 14:00 03/31/19 14:57 mg PO 7.5 mg TID-MID [facility] Administration Nifedipine 60 mg 03/26/19 10:00 03/31/19 09:31 Procardia Xl - PO 60 mg DAILY SANGEETHA Administration Discharge Medications Medication Instructions Recorded Ergocalciferol (Vitamin D2) 50,000 unit PO WEEKLY 09/25/18 [Vitamin D2] Aspirin [ASA -] 81 mg PO DAILY #30 tab.chew 11/20/18 Atorvastatin Ca [Lipitor] 40 mg PO HS #30 tablet 11/20/18 Clopidogrel Bisulfate [Plavix -] 75 mg PO DAILY #30 tablet 11/20/18 Finasteride [Proscar -] 5 mg PO DAILY #30 tablet 11/20/18 Isosorbide Mononitrate [Imdur -] 30 mg PO DAILY #30 tab.sr.24h 11/20/18 hydrALAZINE HCL [Apresoline -] 50 mg PO TID #90 tablet 11/20/18 Furosemide [Lasix -] 80 mg PO BID 01/23/19 Labetalol HCl [Normodyne -] 200 mg PO BID 01/23/19 Nifedipine ER [Procardia XL -] 60 mg PO DAILY 01/23/19 Glipizide [Glucotrol] 10 mg PO BID 03/19/19 Losartan Potassium [Cozaar -] 50 mg PO DAILY 03/19/19 Meclizine HCl [Antivert -] 12.5 mg PO BID #60 tablet 03/31/19 Midodrine HCl [Proamatine -] 7.5 mg PO TID-MID tablet 03/31/19 ASSESSMENT AND PLAN: 59 year old male with history of ESRD, CAD s/p PCI/Stents, Chronic systolic heart failure, HTN, HLD, DM 2, Hx CVA, BPH, re-admitted with lightheadedness/ dizziness and orthostasis. 1. Lightheadedness, possibly secondary to Orthostatic hypotension versus Vertiginous in origin - resolved. Medicaly stable for discharge on 7.5mg BID and Meclizine. Flomax/HCTZ discontinued. Neuro evaluated - recommend out-patient MRI/MRA Head and Neck. Given patient's clinical improvement in othostasis and resolution of symptoms ( dizziness/lightheadedness), he will be discharged with arrangements for close follow up by Cardio, Neuro, Nephro. 2. ESRD on HD - Continue HD as normally scheduled. 3. CAD, history of stents - Continue Aspirin, Plavix, Lipitor. 4. Chronic systolic heart failure - Stable. Continue Cozaar and fluid removal via HD. 5. HTN - Continue Cozaar, Nifedipine, Labetalol, Hydralazine 6. HLD - Continue Lipitor 7. DM 2 - resume home diabetic regimen 8. BPH - Continue Proscar. Flomax held secondary to orthostatic hypotension 9. History of CVA - Continue aspirin, Plavix, Lipitor DVT Px - Heparin SQ Dispo - medically optimized for discharge. Ambulating safely. Out-patient follow up as advised.
== END 2019-03-31 18:48 | disposition home or self-care (01) | DRG 204 ==
LOC: JER 19:49 → JERBED 03-26 02:07 → J6S 03-26 20:36
PROVIDERS: ADMIT Internal Medicine
PROC: 5A1D70Z Performance of Urinary Filtration, Intermittent, Less than 6 Hours Per Day (ICD-10-PCS; principal; 2019-03-27)
DX: I95.1 Orthostatic hypotension (principal); I13.2 Hypertensive heart and chronic kidney disease with heart failure and with stage 5 chronic kidney disease, or end stage renal disease; N17.9 Acute kidney failure, unspecified; I50.42 Chronic combined systolic (congestive) and diastolic (congestive) heart failure; N18.6 End stage renal disease; E11.51 Type 2 diabetes mellitus with diabetic peripheral angiopathy without gangrene; E11.621 Type 2 diabetes mellitus with foot ulcer; L97.529 Non-pressure chronic ulcer of other part of left foot with unspecified severity; E11.22 Type 2 diabetes mellitus with diabetic chronic kidney disease; Z79.84 Long term (current) use of oral hypoglycemic drugs; I25.10 Atherosclerotic heart disease of native coronary artery without angina pectoris; Z99.2 Dependence on renal dialysis; Z95.5 Presence of coronary angioplasty implant and graft; Z86.73 Personal history of transient ischemic attack (TIA), and cerebral infarction without residual deficits; E78.5 Hyperlipidemia, unspecified; Z89.422 Acquired absence of other left toe(s); N40.0 Benign prostatic hyperplasia without lower urinary tract symptoms; D63.1 Anemia in chronic kidney disease
CPT/HCPCS: 36415; 71045-TC-FY; 73630-TC-LT; 80048; 80053; 81003; 82565; 82962; 84484; 84520; 85025; 85027; 85651; 86803; 87086; 87340; 93005; 93010; 97116-GP; 99285-25; J1644

== ENCOUNTER 2019-05-10 08:38 | Inpatient (IN) | payer OTHER ==
--- NOTE | 2019-05-10 08:55 | PDOC ---
History of Present Illness - General Chief Complaint: Nausea/Vomiting Stated Complaint: Nausea/Vomiting - History of Present Illness Initial Comments: The pt is a 59M w/ history of CAD s/p 2 stents, ESRD (/Fri), DM, HTN who presents for evaluation of 3 days of constant non-radiating burning epigastric pain that is associated with nausea and NBNB vomiting, was mildly alleviated by mylanta, and not exacerbated by anything he can identify. Endorses ROCHA but no change in severity. Denies fevers, chest pain, trouble breathing, diarrhea, blood in stool or vomit , endorses urine production, denies dysuria/hematuria, denies rash 05/10/19 09:08 Past History - Past Medical History Allergies/Adverse Reactions: Allergies Allergy/AdvReac Type Severity Reaction Status Date / Time cashew nut Allergy Verified 03/25/19 20:05 Home Medications: Ambulatory Orders Ergocalciferol (Vitamin D2) [Vitamin D2] 50,000 unit PO WEEKLY 09/25/18 Aspirin [ASA -] 81 mg PO DAILY #30 tab.chew 11/20/18 Atorvastatin Ca [Lipitor] 40 mg PO HS #30 tablet 11/20/18 Clopidogrel Bisulfate [Plavix -] 75 mg PO DAILY #30 tablet 11/20/18 Isosorbide Mononitrate [Imdur -] 30 mg PO DAILY #30 tab.sr.24h 11/20/18 Labetalol HCl [Normodyne -] 200 mg PO BID 01/23/19 Nifedipine ER [Procardia XL -] 60 mg PO DAILY 01/23/19 Glipizide [Glucotrol] 10 mg PO BID 03/19/19 Losartan Potassium [Cozaar -] 50 mg PO DAILY 03/19/19 Meclizine HCl [Antivert -] 12.5 mg PO BID #60 tablet 03/31/19 Midodrine HCl [Proamatine -] 7.5 mg PO TID-MID tablet 03/31/19 Anemia: Yes Asthma: No Cancer: No Cardiac Disorders: Yes (STENT X2 year 2016) CVA: Yes COPD: No CHF: Yes Dementia: No Diabetes: Yes GI Disorders: No Disorders: Yes (renal dialysis) HTN: Yes Hypercholesterolemia: Yes Liver Disease: No Seizures: Yes (states blood sugar sugar was elevated) Thyroid Disease: No - Surgical History Cardiac Surgery: Yes (STENT X2) Orthopedic Surgery: Yes - Immunization History Immunization Up to Date: Yes - Psycho Social/Smoking Cessation Hx Smoking History: Never smoked Have you smoked in the past 12 months: No Hx Alcohol Use: No Drug/Substance Use Hx: Yes (quit, marijuana use 1990) Substance Use Type: None Hx Substance Use Treatment: No Review of Systems - Review of Systems Able to Perform ROS?: Yes Comments:: GENERAL/CONSTITUTIONAL: No fever or chills. No weakness HEAD, EYES, EARS, NOSE AND THROAT: No change in vision. No change in hearing. No sore throat CARDIOVASCULAR: No chest pain RESPIRATORY: +intermittent cough; denies hemoptysis GASTROINTESTINAL: +N/V, Denies C/D GENITOURINARY: No dysuria, frequency, or change in urination MUSCULOSKELETAL: No joint or muscle swelling or pain. No neck or back pain SKIN: No rash NEUROLOGIC: No headache, vertigo, loss of consciousness, or change in strength/ sensation ENDOCRINE: No increased thirst. No abnormal weight change ALLERGIC/IMMUNOLOGIC: No hives or skin allergy 05/10/19 08:54 Is the patient limited Welsh proficient: No *Physical Exam - Vital Signs Initial Vital Signs Temp Pulse Resp BP Pulse Ox 98.8 F 89 20 206/110 H 93 L 05/10/19 08:50 05/10/19 08:50 05/10/19 08:50 05/10/19 08:50 05/10/19 08:50 05/10/19 13:15 - Physical Exam Comments: GENERAL: Awake, alert, and oriented to person/place/time, in no acute distress HEAD: No signs of trauma, normocephalic, atraumatic EYES: PERRLA, EOMI, sclera anicteric, conjunctiva clear ENT: Hearing grossly normal, nares patent, oropharynx clear without exudates. Moist mucosa LUNGS: No distress, speaks in full sentences, clear to auscultation bilaterally HEART: Regular rate and rhythm, normal S1 and S2, no murmurs appreciated, peripheral pulses normal and equal bilaterally CHEST: Right dialysis catheter in place w/o surrounding erythema ABDOMEN: Soft, protuberant, epigastric TTP w/o rebound or guarding, normoactive bowel sounds EXTREMITIES: Normal inspection, Normal range of motion, no edema NEUROLOGICAL: Cranial nerves II through XII grossly intact. Normal speech, no focal sensorimotor deficits SKIN: Warm, Dry 05/10/19 08:55 ED Treatment Course - LABORATORY CBC & Chemistry Diagram: 05/10/19 10:45 05/10/19 12:30 Medical Decision Making - Medical Decision Making The pt is a 59M w/ history of CAD s/p 2 stents, ESRD (/Fri), DM, HTN who presents for evaluation of 3 days of constant non-radiating burning epigastric pain ED Course Labs sent ECG CXR Zofran, Pepcid, IVF ECG w/ poor baseline; HR 88; left axis deviation; QTc 484; no evidence of acute ischemia WBC 15.9 CXR w/ evidence of PNA Will treat with Vanc/Zosyn Anemia noted, no indication for transfusion at this time 05/10/19 13:16 Lytes wnl Cr at baseline Trop I neg LFTs unremarkable Lipase unremarkable 05/10/19 13:23 Pt signed out to [facility] Admitting Consult order placed to Dr. Quirzo Discharge - Discharge Information Problems reviewed: Yes Clinical Impression/Diagnosis: Epigastric abdominal pain, ESRD (end stage renal disease) Pneumonia Qualifiers: Pneumonia type: due to unspecified organism Laterality: left Lung location: lower lobe of lung Qualified Code(s): J18.1 - Lobar pneumonia, unspecified organism Nausea & vomiting Qualifiers: Vomiting type: unspecified Vomiting Intractability: non-intractable Qualified Code(s): R11.2 - Nausea with vomiting, unspecified Condition: Guarded - Admission Yes - Follow up/Referral - Patient Discharge Instructions - Post Discharge Activity
[2019-05-10] MEDS ORDERED: ONDANSETRON 4 MG/2 ML VIAL IVPUSH ONE (09:07)
[2019-05-10] MEDS ORDERED: MAG HYDROX/AL HYDROX/SIMETH 30 ML UNIT-DOSE CUP PO ONE (09:07)
[2019-05-10] MEDS ORDERED: ACETAMINOPHEN 1000 MG/100 ML VIAL (NON FORMULARY) IVPB ONE (09:07)
[2019-05-10] MEDS ORDERED: FAMOTIDINE 20 MG/50 ML IVPB 20 MG/50 ML MG IVPB ONE ×2 (09:07→09:54)
[2019-05-10] MEDS ORDERED: MAG HYDROX/AL HYDROX/SIMETH 30 ML UNIT-DOSE CUP ONE (09:53)
[2019-05-10] MEDS ORDERED: ACETAMINOPHEN INJECTION 100 ML IVPB ONE (09:53)
--- NOTE | 2019-05-10 09:53 | PDOC ---
Attending Attestation - Resident Resident Name: Wagner Mesa - ED Attending Attestation I have performed the following: I have examined & evaluated the patient, The case was reviewed & discussed with the resident, I agree w/resident's findings & plan, Exceptions are as noted - HPI HPI: 05/10/19 09:49 59yo male with hx of dm, htn, esrd on HD t/sat with perm cath to R chest wall with n/v since friday. States he had a full HD treatment on friday and after eating spaghetti and meat sauce on friday night had persistent n/v during the night and on friday. States last episode of vomiting was overnight. No diarrhea. Vomitus was nbnb. No diarrhea. Last bm was friday night and normal. No f/c. No dysuria - makes urine 2x per day. No cp. C/o mild sob this am. Pt arrives hypertensive, states he did not take his BP meds yesterday or friday night because of the n/v. C/o epigastric abd pain without radiation. - Physicial Exam PE: 05/10/19 09:51 Gen: aaox3, uncomfortable heent: Dry mm, eomi heart: +s1s2 tachy lungs: cta b/l, perm cath to R chest wall abd: soft, epigastric ttp, mild RUQ ttp, no rebound or guarding ext: amputated toe to L foot, dry tenting skin - Medical Decision Making 05/10/19 10:34 a/p: 59yo male with hx of esrd on hd and htn, dm with n/v since friday -not currently vomiting, but appears dehydrated -concern for biliary disease, pud, gastritis, viral gastritis, pancreatitis, uremia -will send labs, pocus ultrasound -gi meds, ivf hydration, will give oral bp meds -will monitor and reassess, pain control 05/10/19 10:40 pocus ultrasound neg for biliary path 05/10/19 10:[address] Mansoor Quiroz PMD Dr. Brooks 05/10/19 12:33 wbc 15 will add blood cultures early pna on cxr, will start abx pt will need admission 05/10/19 12:57 pt updated on cxr and labs chem pending will microblog [facility]MPHON[facility] covering Dr. Fields 05/10/19 13:12 resident discussing the case with [facility] who accepts pt to service 05/10/19 13:40 lipase neg cr at baseline k 4.8 pt will be admitted for pna Discharge - Discharge Information Problems reviewed: Yes Clinical Impression/Diagnosis: Epigastric abdominal pain Pneumonia Qualifiers: Pneumonia type: due to unspecified organism Laterality: left Lung location: lower lobe of lung Qualified Code(s): J18.1 - Lobar pneumonia, unspecified organism Nausea & vomiting Qualifiers: Vomiting type: unspecified Vomiting Intractability: non-intractable Qualified Code(s): R11.2 - Nausea with vomiting, unspecified Condition: Guarded - Admission Yes - Follow up/Referral - Patient Discharge Instructions - Post Discharge Activity Heart Score/ECG Review - ECG Intrepretation Comment:: 05/10/19 09:52 sinus at 88, nl axis, q waves anteroseptally, qtc 484, no acute st/t wave findings
[2019-05-10] MEDS ORDERED: ONDANSETRON 4 MG/2 ML VIAL ONE (09:54)
--- NOTE | 2019-05-10 09:56 | EKG ---
Test Reason : Blood Pressure : / mmHG Vent. Rate : 088 BPM Atrial Rate : 088 BPM P-R Int : 190 ms QRS Dur : 074 ms QT Int : 400 ms P-R-T Axes : 055 -01 019 degrees QTc Int : 484 ms NORMAL SINUS RHYTHM POSSIBLE LEFT ATRIAL ENLARGEMENT NONSPECIFIC T WAVE ABNORMALITY PROLONGED QT ABNORMAL ECG WHEN COMPARED WITH ECG OF 25-MAR-2019 22:03, T WAVE VARIATION Confirmed by SHANTEL FLORES, KITA ([id number]) on 05/10/2019 9:55:57 AM Referred By: Confirmed By:KITA FUNES MD
[2019-05-10] MEDS ORDERED: LABETALOL HCL 200 MG TABLET (FP) PO ONE (10:40)
[2019-05-10] MEDS ORDERED: LOSARTAN POTASSIUM 50 MG TABLET (FP) PO ONE (10:40)
[2019-05-10] MEDS ORDERED: NIFEdipine E.R 60 MG TABLET (UD) PO ONE (10:41)
[2019-05-10] MEDS ORDERED: LOSARTAN POTASSIUM 50 MG TABLET (FP) ONE (11:11)
[2019-05-10] MEDS ORDERED: NIFEdipine E.R. 30 MG TABLET (FP) ONE (11:11)
[2019-05-10] MEDS ORDERED: LABETALOL HCL 100 MG TABLET (FP) ONE (11:11)
[2019-05-10 11:34] LABS: BASO % 0.1 % (0-2.0); EOS % 0.1 % (0-4.5); HEMATOCRIT 30.9 % (35.4-49); HEMOGLOBIN 9.9 GM/dL (11.7-16.9); LYMPH % 4.1 % (8-40); MCH 29.1 pg (25.7-33.7); MEAN CELL VOLUME 90.9 fl (80-96); MONO % 5.7 % (3.8-10.2); PLATELET COUNT 321 K/MM3 (134-434); RDW 13.5 % (11.9-15.9); WHITE BLOOD COUNT 15.9 K/mm3 (4.0-10.0)
[2019-05-10 11:39] LABS: INR 1.18 (0.83-1.09); PROTHROMBIN TIME (PATIENT) 13.9 SEC (9.7-13.0)
[2019-05-10] MEDS ORDERED: PIPERACILLIN/TAZOB 4.5 GM 4.5 GM in DEXTROSE 5%-WATER 100 ML IVPB ONE (12:29)
[2019-05-10] MEDS ORDERED: VANCOMYCIN 1,000 MG in DEXTROSE 5%-WATER - 250 ML IVPB ONE (12:29)
[2019-05-10] MEDS ORDERED: LABETALOL HCL 5 MG/1 ML (100MG/20 ML VIAL) IVPUSH ONE (12:56)
[2019-05-10] MEDS ORDERED: LABETALOL HCL 5 MG/1 ML (200MG/40ML VIAL) IVPB ONE (13:04)
[2019-05-10 13:19] LABS: ALBUMIN 3.2 g/dl (3.4-5.0); BILIRUBIN,TOTAL 0.4 mg/dL (0.2-1); BLOOD UREA NITROGEN 58.6 mg/dL (7-18); CALCIUM 8.1 mg/dL (8.5-10.1); CREATININE 4.4 mg/dL (0.55-1.3); POTASSIUM 4.8 mmol/L (3.5-5.1); TOT PROT 7.4 g/dl (6.4-8.2)
[2019-05-10] MEDS ORDERED: VANCOMYCIN 1 GRAM (PRE-DOCKED) 1,000 MG/250 ML BAG IVPB ONE (13:21)
[2019-05-10] MEDS ORDERED: PIPERACILLIN/TAZOB 4.5 GM 4.5 GM/100 ML BAG IVPB ONE (13:21)
--- NOTE | 2019-05-10 14:08 | HP ---
CHIEF COMPLAINT: epigastric pain and vomiting PCP: Dr. Eid HISTORY OF PRESENT ILLNESS: 59M w/ pmhx of CAD (x2 stents placed), ESRD (e/Fri), DM, HTN, HLD, CHF, CVA presents in the ED for complaints of non-radiating burning epigastric pain and vomiting for the past 1.5 days. States symptoms started after eating home made spaghetti. On Friday, pt reported numerous episodes of NBNB vomiting; on Friday, he still had multiple episodes of vomiting but less frequently, and today he reports no vomiting episodes. States he only took Mylanta which gave him some temporary relief with his symptoms. Denies any sick contacts or recent travel. Denies hoover/d, f/c, n/v, chest pain, sob, abd pain, urinary/bowel symptoms. Denies blood in urine or stool. Of note, pt states that he has not taken his home meds since prior to the onset of his symptoms on Friday due to the persistent vomiting. Last EGD done 11/18/18: LA grade D esophagitis. CXR was done in the ED with findings consistent with pneumonia and as a result, pt was treated empirically with Vanc/Zosyn for hospital-acquired pneumonia. 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 Allergies cashew nut Allergy (Verified 03/25/19 20:05) HOME MEDICATIONS: Home Medications Medication Instructions Recorded Ergocalciferol (Vitamin D2) 50,000 unit PO WEEKLY 09/25/18 [Vitamin D2] Aspirin [ASA -] 81 mg PO DAILY #30 tab.chew 11/20/18 Atorvastatin Ca [Lipitor] 40 mg PO HS #30 tablet 11/20/18 Clopidogrel Bisulfate [Plavix -] 75 mg PO DAILY #30 tablet 11/20/18 Isosorbide Mononitrate [Imdur -] 30 mg PO DAILY #30 tab.sr.24h 11/20/18 Labetalol HCl [Normodyne -] 200 mg PO BID 01/23/19 Nifedipine ER [Procardia XL -] 60 mg PO DAILY 01/23/19 Glipizide [Glucotrol] 10 mg PO BID 03/19/19 Losartan Potassium [Cozaar -] 50 mg PO DAILY 03/19/19 Meclizine HCl [Antivert -] 12.5 mg PO BID #60 tablet 03/31/19 Midodrine HCl [Proamatine -] 7.5 mg PO TID-MID tablet 03/31/19 REVIEW OF SYSTEMS CONSTITUTIONAL: Absent: fever, chills, diaphoresis, generalized weakness, malaise, loss of appetite, weight change HEENT: Absent: rhinorrhea, nasal congestion, throat pain, throat swelling, difficulty swallowing, mouth swelling, ear pain, eye pain, visual changes CARDIOVASCULAR: Absent: chest pain, syncope, palpitations, irregular heart rate, lightheadedness , peripheral edema RESPIRATORY: Absent: cough, shortness of breath, dyspnea with exertion, orthopnea, wheezing, stridor, hemoptysis GASTROINTESTINAL: +epigastric burning pain, nausea, vomiting Absent: abdominal pain, abdominal distension, , diarrhea, constipation, melena, hematochezia GENITOURINARY: Absent: dysuria, frequency, urgency, hesitancy, hematuria, flank pain, genital pain MUSCULOSKELETAL: Absent: myalgia, arthralgia, joint swelling, back pain, neck pain SKIN: Absent: rash, itching, pallor HEMATOLOGIC/IMMUNOLOGIC: Absent: easy bleeding, easy bruising, lymphadenopathy, frequent infections ENDOCRINE: Absent: unexplained weight gain, unexplained weight loss, heat intolerance, cold intolerance NEUROLOGIC: Absent: headache, focal weakness or paresthesias, dizziness, unsteady gait, seizure, mental status changes, bladder or bowel incontinence PSYCHIATRIC: Absent: anxiety, depression, suicidal or homicidal ideation, hallucinations. PHYSICAL EXAMINATION Vital Signs - 24 hr 05/10/19 05/10/19 08:50 09:00 Temperature 98.8 F Pulse Rate 89 Respiratory 20 Rate Blood Pressure 206/110 H O2 Sat by Pulse 93 L 93 L Oximetry (%) GENERAL: AAOx3. NAD. HEENT: AT/NC. EOMI. Moist mucus membranes. NECK: Normal range of motion, supple without lymphadenopathy, JVD, or masses. LUNGS: Fine crackles b/l. No wheezes noted. Symmetric chest rise. HEART: RRR. Normal S1, S2. No murmurs noted. CHEST: R dialysis catheter in place. ABDOMEN: Soft. Mild TTP in epigastric region. Not distended, normoactive bowel sounds, no guarding, no rebound, no masses. No hepatomegaly or splenomegaly. MUSCULOSKELETAL: Normal range of motion at all joints. No bony deformities or tenderness. No CVA tenderness. UPPER EXTREMITIES: 2+ pulses, warm, well-perfused. No cyanosis. No clubbing. No peripheral edema. LOWER EXTREMITIES: 2+ pulses, warm, well-perfused. No calf tenderness. No peripheral edema. 1st digit on L foot amputated. Dry wound ulcer seen on 2nd digit of L foot, non-infected looking. NEUROLOGICAL: Cranial nerves II-XII intact. Normal speech. PSYCHIATRIC: Cooperative. Good eye contact. Flat affect. SKIN: Warm, dry, normal turgor, no rashes or lesions noted, normal capillary refill. Laboratory Results - last 24 hr 05/10/19 05/10/19 05/10/19 10:45 10:45 10:45 WBC 15.9 H RBC 3.40 L Hgb 9.9 L Hct 30.9 L MCV 90.9 MCH 29.1 MCHC 32.0 RDW 13.5 Plt Count 321 D MPV 8.0 Absolute Neuts (auto) 14.4 H Neutrophils % 90.0 H D Lymphocytes % 4.1 L D Monocytes % 5.7 Eosinophils % 0.1 D Basophils % 0.1 Nucleated RBC % 0 PT with INR INR PTT (Actin FS) Sodium Cancelled Potassium Cancelled Chloride Cancelled Carbon Dioxide Cancelled Anion Gap Cancelled BUN Cancelled Creatinine Cancelled Est GFR (CKD-EPI)AfAm Cancelled Est GFR (CKD-EPI)NonAf Cancelled Random Glucose Cancelled Calcium Cancelled Total Bilirubin Cancelled AST Cancelled ALT Cancelled Alkaline Phosphatase Cancelled Creatine Kinase Cancelled Troponin I Cancelled Total Protein Cancelled Albumin Cancelled Lipase Cancelled Cancelled Blood Type Antibody Screen 05/10/19 05/10/19 05/10/19 10:45 10:45 10:45 WBC RBC Hgb Hct MCV MCH MCHC RDW Plt Count MPV Absolute Neuts (auto) Neutrophils % Lymphocytes % Monocytes % Eosinophils % Basophils % Nucleated RBC % PT with INR 13.90 H INR 1.18 H PTT (Actin FS) 19.9 L Sodium Potassium Chloride Carbon Dioxide Anion Gap BUN Creatinine Est GFR (CKD-EPI)AfAm Est GFR (CKD-EPI)NonAf Random Glucose Calcium Total Bilirubin AST ALT Alkaline Phosphatase Creatine Kinase Troponin I Total Protein Albumin Lipase Blood Type O NEGATIVE Antibody Screen Negative 05/10/19 12:30 WBC RBC Hgb Hct MCV MCH MCHC RDW Plt Count MPV Absolute Neuts (auto) Neutrophils % Lymphocytes % Monocytes % Eosinophils % Basophils % Nucleated RBC % PT with INR INR PTT (Actin FS) Sodium 141 Potassium 4.8 Chloride 104 Carbon Dioxide 31 Anion Gap 5 L BUN 58.6 H Creatinine 4.4 H Est GFR (CKD-EPI)AfAm 15.96 Est GFR (CKD-EPI)NonAf 13.77 Random Glucose 192 H Calcium 8.1 L Total Bilirubin 0.4 AST 11 L ALT 38 Alkaline Phosphatase 123 H Creatine Kinase Troponin I 0.04 Total Protein 7.4 Albumin 3.2 L Lipase 58 L Blood Type Antibody Screen IMAGING: * CXR: Infiltrate with fluid and/or atelectasis at the L base with his new since 03/25/19. R line and prominent mediastinum persist w/ clear TAMARA and R lung. * EKG: NSR, HR 88, QTc 848 ms, no ASSESSMENT/PLAN: 59M w/ pmhx of CAD (x2 stents placed), ESRD (Tue/Sat), DM, HTN, HLD, CHF, CVA, BPH presents in the ED for complaints of burning epigastric pain and vomiting. #Vomiting; likely 2/2 reflux symptoms vs. food poisoning vs. esophagitis. Stable , currently asymptomatic. -Seen by GI with EGD done (11/22) showing esophagitis. -Cont PPI -Mylanta PRN #L lower lobe pneumonia; CXR +infiltrates in L base. WBC 15.9. -IV Vanc/Zosyn given in ED -Will cont Vanc/Zosyn; renally dose all meds given pt's history of ESRD -ID consulted for further IV abx recs -Urine Legionella/Strep, sputum culture, influenza, Bcx pending #ESRD; On HD Tues/Sat. Stable. Cont home med: Midodrine 2.5 TID -Will need HD tomorrow -Nephro consulted -Renally dose all meds #Hx of systolic HF; Stable. Cont home meds. #CAD; hx of stents x2. Cont home meds: ASA 81, Plavix 75, Lipitor 40 #DM; Hold all home meds. BGMs/ISS ACHS. #HTN/HLD; Cont home meds: Lipitor 40 HS, Isosorbide Mononitrate 30 QD, Labetolol 200 BID, Losartan 50 QD, Nifedipine 60 QD #Hx of CVA; Cont home meds: ASA 81, Plavix 75 QD #Prophylaxis DVT: SQH GI: Protonix 40 QD FEN -no IVF -recheck lytes in AM -Renal diet Dispo -admit to med-surg Family Medical History Family Hx Diabetes: Grandmother (maternal) Visit type - Emergency Visit Emergency Visit: Yes ED Registration Date: 05/10/19 Care time: The patient presented to the Emergency Department on the above date and was hospitalized for further evaluation of their emergent condition. - New Patient This patient is new to me today: Yes Date on this admission: 05/11/19 - Critical Care Critical Care patient: No ATTENDING PHYSICIAN STATEMENT I saw and evaluated the patient. I reviewed the resident's note and discussed the case with the resident. I agree with the resident's findings and plan as documented. SUBJECTIVE: OBJECTIVE: ASSESSMENT AND PLAN:
[2019-05-10] MEDS ORDERED: MIDODRINE HCL 2.5 MG TABLET PO SCH (14:30)
[2019-05-10] MEDS ORDERED: VANCOMYCIN HCL 1,250 MG in DEXTROSE 5%-WATER - 250 ML IVPB ONE (15:00)
[2019-05-10] MEDS: HEPARIN NA (PORCINE) 5,000 UNITS/ML 1ML VIAL SQ SCH ×2 (15:22→21:08)
[2019-05-10 15:38] VITALS: BMI 28.1
--- NOTE | 2019-05-10 16:11 | CON.ID ---
Consult Referred by:: Hospitalist Reason for Consultation:: pneumonia - History of Present Illness Chief Complaint: vomiting History of Present Illness: Mr. 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 Pt lives at home with his who ate the same meal as him but did not get ill. He reports no vomiting today. He currently denies chest pain or epigastric pain as well. He reports chills and shortness of breath for the last day. He denies fever, cough, or wheezing. Last HD was 2 days ago with no problems. Pt was [facility] at [facility] for orthostatic hypotension associated with HD. He reports blood pressure is controlled now, except for hypertension the last 2 days since he has not been able to take his medication. 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 coli bacteremia (11/22). Last HIV testing negative (11/22). 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: CVA Cardio/Vascular: Yes: CAD, CHF, HTN, Other Gastrointestinal: Yes: Other (esophagitis) Renal/: Yes: Renal Inusuff, Hemodialysis Heme/Onc: Yes: Anemia Endocrine: Yes: Diabetes Mellitus (DM II) - Past Surgical History Past Surgical History: Yes: Stent (x2) - Alcohol/Substance Use Hx Alcohol Use: No History of Substance Use: reports: Cocaine, Marijuana - Smoking History Smoking history: Never smoked Have you smoked in the past 12 months: No - Social History Usual Living Arrangement: With Spouse ADL: Independent 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[employer], 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 [place] History of Recent Travel: No Home Medications - Allergies Allergies/Adverse Reactions: Allergies Allergy/AdvReac Type Severity Reaction Status Date / Time cashew nut Allergy Verified 03/25/19 20:05 - Home Medications Home Medications: Ambulatory Orders Ergocalciferol (Vitamin D2) [Vitamin D2] 50,000 unit PO WEEKLY 09/25/18 Aspirin [ASA -] 81 mg PO DAILY #30 tab.chew 11/20/18 Atorvastatin Ca [Lipitor] 40 mg PO HS #30 tablet 11/20/18 Clopidogrel Bisulfate [Plavix -] 75 mg PO DAILY #30 tablet 11/20/18 Isosorbide Mononitrate [Imdur -] 30 mg PO DAILY #30 tab.sr.24h 11/20/18 Labetalol HCl [Normodyne -] 200 mg PO BID 01/23/19 Nifedipine ER [Procardia XL -] 60 mg PO DAILY 01/23/19 Glipizide [Glucotrol] 10 mg PO BID 03/19/19 Losartan Potassium [Cozaar -] 50 mg PO DAILY 03/19/19 Meclizine HCl [Antivert -] 12.5 mg PO BID #60 tablet 03/31/19 Midodrine HCl [Proamatine -] 2.5 mg PO TID 05/10/19 Tamsulosin HCl [Flomax] 0.4 mg PO DAILY 05/10/19 Review of Systems - Review of Systems Constitutional: reports: Chills. denies: Fever Neck: denies: Swollen Glands Cardiovascular: denies: Chest Pain Respiratory: reports: SOB. denies: Cough, Wheezing Gastrointestinal: denies: Abdominal Pain, Nausea, Vomiting Genitourinary: denies: Dysuria Neurological: denies: Headache Physical Exam Vital Signs: Vital Signs Temperature 98.9 F 05/10/19 14:38 Pulse Rate 80 05/10/19 14:38 Respiratory Rate 20 05/10/19 14:38 Blood Pressure 162/94 05/10/19 14:38 O2 Sat by Pulse Oximetry (%) 100 05/10/19 14:38 Constitutional: Yes: Well Nourished, No Distress Eyes: Yes: Conjunctiva Clear, EOM Intact HENT: Yes: Normocephalic Neck: Yes: Supple. No: Lymphadenopathy Cardiovascular: Yes: Regular Rate and Rhythm Respiratory: Yes: Other (mild crackles left base) Gastrointestinal: Yes: Soft, Hyperactive Bowel Sounds (left>right). No: Distention Edema: No Integumentary: No: Rash Neurological: Yes: Alert, Oriented Psychiatric: Yes: Other (flat affect) Labs: CBC, BMP 05/10/19 10:45 05/10/19 12:30 Imaging - Results Chest X-ray: Report Reviewed (left base fluid and/or atelectasis changed since ), Image Reviewed Ultrasound: Report Reviewed (negative cholecystitis) EKG: Report Reviewed (HR 88, QTc 484), Image Reviewed Problem List - Problems (1) Pneumonia Code(s): J18.9 - PNEUMONIA, UNSPECIFIED ORGANISM Qualifiers: Pneumonia type: due to unspecified organism Laterality: left Lung location: lower lobe of lung Qualified Code(s): J18.1 - Lobar pneumonia, unspecified organism (2) Leukocytosis Code(s): D72.829 - ELEVATED WHITE BLOOD CELL COUNT, UNSPECIFIED Qualifiers: Leukocytosis type: unspecified Qualified Code(s): D72.829 - Elevated white blood cell count, unspecified (3) Transaminitis Code(s): R74.0 - NONSPEC ELEV OF LEVELS OF TRANSAMNS & LACTIC ACID DEHYDRGNSE (4) ESRD (end stage renal disease) Code(s): N18.6 - END STAGE RENAL DISEASE (5) CAD (coronary artery disease) Code(s): I25.10 - ATHSCL HEART DISEASE OF [place] CORONARY ARTERY W/O ANG PCTRS Qualifiers: Coronary Disease-Associated Artery/Lesion type: unspecified vessel or lesion type Associated angina: angina presence unspecified (6) CHF (congestive heart failure) Code(s): I50.9 - HEART FAILURE, UNSPECIFIED Qualifiers: Heart failure type: systolic Heart failure chronicity: acute on chronic Qualified Code(s): I50.23 - Acute on chronic systolic (congestive) heart failure (7) Hypertension Code(s): I10 - ESSENTIAL (PRIMARY) HYPERTENSION Qualifiers: Hypertension type: unspecified Qualified Code(s): I10 - Essential (primary ) hypertension (8) Normocytic anemia Code(s): D64.9 - ANEMIA, UNSPECIFIED (9) Non-insulin treated type 2 diabetes mellitus Code(s): E11.9 - TYPE 2 DIABETES MELLITUS WITHOUT COMPLICATIONS (10) CVA (cerebral vascular accident) Code(s): I63.9 - CEREBRAL INFARCTION, UNSPECIFIED Qualifiers: Laterality of affected vessel: unspecified Assessment/Plan Mr. Prater is a 59y/o male with CAD s/p 2 stents, ESRD on HD /Fri, non-IDDM, HTN, HLD, CHF, and CVA who presents with epigastric pain and NBNB vomiting x2 days. Vomiting has resolved today. Pt reports chills and shortness of breath x1 day. CXR shows fluid and/or atelectasis in left lung base. #left lower lobe pneumonia Leukocytosis. Hemodynamically stable. CXR possible atelectasis left lung base. SOB and chills reported, with initial vomiting resolved. Pt is currently on HD. QTc 484. -Ceftriaxone 1g daily -Vancomycin level prior to HD tomorrow -Legionella, pneumo, urine cx ordered -Sputum cx ordered
[2019-05-10] MEDS: ASPIRIN 81 MG CHEWABLE TABLETS PO SCH (16:12)
[2019-05-10] MEDS: CLOPIDOGREL BISULFATE 75 MG TABLET (FP) PO SCH (16:12)
[2019-05-10] MEDS: TAMSULOSIN HCL 0.4 MG CAP PO SCH (16:12)
[2019-05-10] MEDS ORDERED: DEXTROSE 5%-WATER - 100 ML IVPB ONE (16:17)
[2019-05-10] MEDS ORDERED: cefTRIAXone SODIUM 1 GM VIAL ONE (16:17)
--- NOTE | 2019-05-10 17:17 | PN ---
Teaching Attending Note Name of Resident: Cara Sifuentes ATTENDING PHYSICIAN STATEMENT I saw and evaluated the patient. I reviewed the resident's note and discussed the case with the resident. I agree with the resident's findings and plan as documented. SUBJECTIVE: This is a 59 year old man with a history of CAD with stents, chronic systolic heart failure, HTN, hyperlipidemia, type 2 DM, ESRD, CVA, BPH, anemia who comes to the ED complaining of epigastric abdominal pain and vomiting x 1-2 days which started after eating spaghetti at home. Mylanta provided some relief. He denies fever, chills, hematemesis, melena, recent travel. He had an EGD 11/19/18 which showed severe LA grade D esophagitis, antral erythema, normal duodenum, hiatal hernia. Biopsy of the antrum showed mild chronic, focally acute gastritis, reactive gastropathy, negative for H. pylori. OBJECTIVE: Vital Signs Period Temp Pulse Resp BP Sys/Lopez Pulse Ox Last 24 Hr 98.8 F-99.1 F 80-89 18-20 146-206/82-110 90-100 HEART: S1S2, RRR LUNGS: Bilateral crackles ABDOMEN: Soft, non-tender, non-distended, normal BS EXTREMITIES: No edema Laboratory Tests 05/10/19 05/10/19 05/10/19 10:45 10:45 10:45 WBC 15.9 H RBC 3.40 L Hgb 9.9 L Hct 30.9 L MCV 90.9 MCH 29.1 MCHC 32.0 RDW 13.5 Plt Count 321 D MPV 8.0 Absolute Neuts (auto) 14.4 H Neutrophils % 90.0 H D Lymphocytes % 4.1 L D Monocytes % 5.7 Eosinophils % 0.1 D Basophils % 0.1 Nucleated RBC % 0 PT with INR INR PTT (Actin FS) Sodium Cancelled Potassium Cancelled Chloride Cancelled Carbon Dioxide Cancelled Anion Gap Cancelled BUN Cancelled Creatinine Cancelled Est GFR (CKD-EPI)AfAm Cancelled Est GFR (CKD-EPI)NonAf Cancelled Random Glucose Cancelled Calcium Cancelled Total Bilirubin Cancelled AST Cancelled ALT Cancelled Alkaline Phosphatase Cancelled Creatine Kinase Cancelled Troponin I Cancelled Total Protein Cancelled Albumin Cancelled Lipase Cancelled Cancelled Influenza A (Rapid) Influenza B (Rapid) Blood Type Antibody Screen 05/10/19 05/10/19 05/10/19 10:45 10:45 10:45 WBC RBC Hgb Hct MCV MCH MCHC RDW Plt Count MPV Absolute Neuts (auto) Neutrophils % Lymphocytes % Monocytes % Eosinophils % Basophils % Nucleated RBC % PT with INR 13.90 H INR 1.18 H PTT (Actin FS) 19.9 L Sodium Potassium Chloride Carbon Dioxide Anion Gap BUN Creatinine Est GFR (CKD-EPI)AfAm Est GFR (CKD-EPI)NonAf Random Glucose Calcium Total Bilirubin AST ALT Alkaline Phosphatase Creatine Kinase Troponin I Total Protein Albumin Lipase Influenza A (Rapid) Influenza B (Rapid) Blood Type O NEGATIVE Antibody Screen Negative 05/10/19 05/10/19 12:30 14:00 WBC RBC Hgb Hct MCV MCH MCHC RDW Plt Count MPV Absolute Neuts (auto) Neutrophils % Lymphocytes % Monocytes % Eosinophils % Basophils % Nucleated RBC % PT with INR INR PTT (Actin FS) Sodium 141 Potassium 4.8 Chloride 104 Carbon Dioxide 31 Anion Gap 5 L BUN 58.6 H Creatinine 4.4 H Est GFR (CKD-EPI)AfAm 15.96 Est GFR (CKD-EPI)NonAf 13.77 Random Glucose 192 H Calcium 8.1 L Total Bilirubin 0.4 AST 11 L ALT 38 Alkaline Phosphatase 123 H Creatine Kinase Troponin I 0.04 Total Protein 7.4 Albumin 3.2 L Lipase 58 L Influenza A (Rapid) Negative Influenza B (Rapid) Negative Blood Type Antibody Screen Home Medications Medication Instructions Recorded Ergocalciferol (Vitamin D2) 50,000 unit PO WEEKLY 09/25/18 [Vitamin D2] Aspirin [ASA -] 81 mg PO DAILY #30 tab.chew 11/20/18 Atorvastatin Ca [Lipitor] 40 mg PO HS #30 tablet 11/20/18 Clopidogrel Bisulfate [Plavix -] 75 mg PO DAILY #30 tablet 11/20/18 Isosorbide Mononitrate [Imdur -] 30 mg PO DAILY #30 tab.sr.24h 11/20/18 Labetalol HCl [Normodyne -] 200 mg PO BID 01/23/19 Nifedipine ER [Procardia XL -] 60 mg PO DAILY 01/23/19 Glipizide [Glucotrol] 10 mg PO BID 03/19/19 Losartan Potassium [Cozaar -] 50 mg PO DAILY 03/19/19 Meclizine HCl [Antivert -] 12.5 mg PO BID #60 tablet 03/31/19 Midodrine HCl [Proamatine -] 2.5 mg PO TID 05/10/19 Tamsulosin HCl [Flomax] 0.4 mg PO DAILY 05/10/19 ASSESSMENT AND PLAN: This is a 59 year old man with a history of ESRD, CAD with stents, chronic systolic heart failure, HTN, hyperlipidemia, type 2 DM, CVA, BPH, anemia who presented to the ED with epigastric pain and vomiting. 1. Pneumonia - Will treat for healthcare-associated pneumonia since he is a dialysis patient and has had several admissions in the last 3 months - Zosyn, vancomycin given in ED - will continue - Check urine pneumonia Ag, influenza A/B - ID consult - Oxygen to maintain saturation >90% 2. Epigastric pain with vomiting - Improved - Start Protonix 3. ESRD - Continue HD 4. CAD, history of stents - Continue aspirin, Plavix, Lipitor, Procardia XL, Imdur 5. Chronic systolic heart failure - Stable - Continue Cozaar 6. HTN - Continue Cozaar, Procardia XL, Labetalol 7. Hyperlipidemia - Continue Lipitor 8. Type 2 DM - Hold glipizide - Fingersticks with Novolog sliding scale 9. Anemia secondary to chronic illness/ESRD 10. BPH - Continue Flomax 11. History of CVA - Continue aspirin, Plavix, Lipitor 12. History of orthostatic hypotension - Continue midodrine
[2019-05-10] MEDS: CEFTRIAXONE 1 GM in DEXTROSE 5%-WATER - 50 ML IVPB SCH (17:33)
[2019-05-10] MEDS: MIDODRINE HCL 2.5 MG TABLET PO SCH (17:33)
[2019-05-10] MEDS: INSULIN SLIDING SCALE (NOVOLOG) 1 VIAL SQ SCH ×2 (17:35→21:17)
[2019-05-10] MEDS ORDERED: INSULIN (NOVOLOG) ASPART 100 UNITS/ML 10ML VIAL ONE ×3 (17:35→21:11)
[2019-05-10] MEDS: ERGOCALCIFEROL (VIT D2) 50,000 UNIT (1.25 MG) CAPSULE PO SCH ×2 (17:36→17:47)
[2019-05-10] MEDS ORDERED: PT OWN MED DRAWER 7, Y5N ONE (17:45)
[2019-05-10] MEDS ORDERED: PIPERACILLIN/TAZOB 2.25 GM 2.25 GM in DEXTROSE 5%-WATER - 50 ML IVPB SCH (18:00)
[2019-05-10] MEDS: MECLIZINE HCL 12.5 MG TABLET PO SCH (21:08)
[2019-05-10] MEDS: LABETALOL HCL 100 MG TABLET (FP) PO SCH (21:08)
[2019-05-10] MEDS: ATORVASTATIN CA 40 MG TABLET (FP) PO SCH (21:08)
--- NOTE | 2019-05-10 21:50 | PN ---
Teaching Attending Note Name of Resident: Norma Zurita ATTENDING PHYSICIAN STATEMENT I saw and evaluated the patient. I reviewed the resident's note and discussed the case with the resident. I agree with the resident's findings and plan as documented. SUBJECTIVE: OBJECTIVE: ASSESSMENT AND PLAN: R/O LLL PNEUMONIA ESRD HX MRSA AWAIT C/S URINE LEGIONELLA/PNEUMOCOCCAL AG EMPIRIC CEFTRIAXONE
[2019-05-11] MEDS: HEPARIN NA (PORCINE) 5,000 UNITS/ML 1ML VIAL SQ SCH ×3 (05:55→22:04)
[2019-05-11] MEDS: INSULIN SLIDING SCALE (NOVOLOG) 1 VIAL SQ SCH ×4 (06:06→22:04)
[2019-05-11] MEDS: MAG HYDROX/AL HYDROX/SIMETH 30 ML UNIT-DOSE CUP PO PRN ×2 (06:57→22:05)
[2019-05-11] MEDS ORDERED: SODIUM CHLORIDE 250 ML IV PRN ×2 (09:35→09:36)
[2019-05-11] MEDS ORDERED: HEPARIN NA (PORCINE) 5,000 UNITS/ML 1ML VIAL IVPUSH ONE (09:45)
--- NOTE | 2019-05-11 10:09 | PN ---
Physical Exam: SUBJECTIVE: Patient seen and examined. He reports slight improvement in shortness of breath and is off NC. He denies cough, wheezing, and chills. He was able to tolerate cereal without vomiting but reports acid reflux. No bowel movement overnight. OBJECTIVE: Vital Signs Period Temp Pulse Resp BP Sys/Lopez Pulse Ox Last 24 Hr 98.8 F-99.2 F 78-85 18-20 146-191/82-105 90-100 GENERAL: A&Ox3, in no distress HEAD: Normocephalic, atraumatic EYES: Conjunctiva clear, EOM intact ENT: Ears normal, nares patent, moist mucous membranes NECK: Full ROM LUNGS: Decreased breath sounds left lower base HEART: RRR, no murmur ABDOMEN: Soft, nontender, nondistended, NBS EXTREMITIES: Warm, well-perfused NEUROLOGICAL: Cranial nerves II through XII grossly intact PSYCH: Flat affect SKIN: Warm, dry, normal turgor Abnormal Lab Results 05/11/19 05/11/19 10:10 10:10 RBC 2.87 L Hgb 8.4 L Hct 26.1 L D Anion Gap BUN Creatinine Random Glucose Calcium Magnesium AST Alkaline Phosphatase Albumin Lipase Random Vancomycin 10.2 L 05/11/19 10:10 Anion Gap 4 L BUN 65.8 H Creatinine 5.2 H Random Glucose 154 H Calcium 7.5 L Magnesium 3.0 H AST 9 L Alkaline Phosphatase Albumin 2.8 L Home Medication List Medication Instructions Recorded Confirmed Type Ergocalciferol (Vitamin D2) 50,000 unit PO WEEKLY 09/25/18 05/10/19 History [Vitamin D2] Labetalol HCl [Normodyne -] 200 mg PO BID 01/23/19 05/10/19 History Nifedipine ER [Procardia XL -] 60 mg PO DAILY 01/23/19 05/10/19 History Glipizide [Glucotrol] 10 mg PO BID 03/19/19 05/10/19 History Losartan Potassium [Cozaar -] 50 mg PO DAILY 03/19/19 05/10/19 History Midodrine HCl [Proamatine -] 2.5 mg PO TID 05/10/19 05/10/19 History Tamsulosin HCl [Flomax] 0.4 mg PO DAILY 05/10/19 05/10/19 History Active Medications Al Hydroxide/Mg Hydroxide (Mylanta Oral Suspension -) 30 ml PO Q6H PRN PRN Reason: DYSPEPSIA Last Admin: 05/11/19 06:57 Dose: 30 ml Aspirin (Asa -) 81 mg PO DAILY [facility] Last Admin: 05/11/19 10:50 Dose: Not Given Atorvastatin Calcium (Lipitor -) 40 mg PO HS [facility] Last Admin: 05/10/19 21:08 Dose: 40 mg Clopidogrel Bisulfate (Plavix -) 75 mg PO DAILY [facility] Last Admin: 05/11/19 10:51 Dose: Not Given Ergocalciferol (Drisdol -) 50,000 unit PO Mo [facility] Last Admin: 05/10/19 17:47 Dose: 50,000 unit Famotidine (Acid Semaphore Operator) 10 mg PO DAILY [facility] Heparin Sodium (Porcine) (Heparin -) 5,000 unit SQ TID [facility] Last Admin: 05/11/19 05:55 Dose: 5,000 unit Ceftriaxone Sodium 1 gm/ (Dextrose) 50 mls @ 100 mls/hr IVPB DAILY [facility]; Protocol Last Admin: 05/11/19 10:52 Dose: Not Given Vancomycin HCl (Vancomycin (Pre-Docked)) 1,000 mg in 250 mls @ 166.667 mls/hr IVPB ONCE ONE Stop: 05/11/19 15:29 Insulin Aspart (Novolog Vial Sliding Scale -) 1 vial SQ ACHS [facility]; Protocol Last Admin: 05/11/19 10:52 Dose: Not Given Isosorbide Mononitrate (Imdur -) 30 mg PO DAILY [facility] Last Admin: 05/11/19 10:51 Dose: Not Given Labetalol HCl (Normodyne -) 200 mg PO BID [facility] Last Admin: 05/11/19 10:51 Dose: Not Given Losartan Potassium (Cozaar -) 50 mg PO DAILY [facility] Last Admin: 05/11/19 10:51 Dose: Not Given Meclizine HCl (Antivert -) 12.5 mg PO BID [facility] Last Admin: 05/11/19 10:50 Dose: Not Given Midodrine (Proamatine -) 2.5 mg PO TID-MID [facility] Last Admin: 05/11/19 10:51 Dose: Not Given Nifedipine (Procardia Xl -) 60 mg PO DAILY [facility] Last Admin: 05/11/19 10:51 Dose: Not Given Pantoprazole Sodium (Protonix -) 40 mg PO DAILY [facility] Last Admin: 05/11/19 10:52 Dose: Not Given Tamsulosin HCl (Flomax -) 0.4 mg PO DAILY@0830 [facility] Last Admin: 05/11/19 10:50 Dose: Not Given ASSESSMENT/PLAN: Mr. Prater is a 59y/o male with CAD s/p 2 stents, ESRD on HD /Fri, non-IDDM, HTN, HLD, CHF, and CVA who presents with epigastric pain and NBNB vomiting x2 days. Vomiting has resolved. Pt reports chills and shortness of breath x1 day. CXR shows fluid and/or atelectasis in left lung base. He is currently being treated for possible left lower lobe pneumonia. #left lower lobe pneumonia Leukocytosis resolved and afebrile overnight with improved shortness of breath. Rapid flu, Legionella, and strep pneumo negative. Vancomycin level this morning prior to HD 10.2. CXR on admission shows possible atelectasis left lung base. -Ceftriaxone 1g daily -Vancomycin 1g x 1 after HD -recheck random vanc level in 2 days -urine cx pending -sputum cx ordered #ESRD on HD Tu/Sat Cr 5.2 -HD today #prolonged QTc 484 -avoid prolonging agents Problem List - Problems (1) Pneumonia Code(s): J18.9 - PNEUMONIA, UNSPECIFIED ORGANISM Qualifiers: Pneumonia type: due to unspecified organism Laterality: left Lung location: lower lobe of lung Qualified Code(s): J18.1 - Lobar pneumonia, unspecified organism (2) Leukocytosis Code(s): D72.829 - ELEVATED WHITE BLOOD CELL COUNT, UNSPECIFIED Qualifiers: Leukocytosis type: unspecified Qualified Code(s): D72.829 - Elevated white blood cell count, unspecified (3) Transaminitis Code(s): R74.0 - NONSPEC ELEV OF LEVELS OF TRANSAMNS & LACTIC ACID DEHYDRGNSE (4) ESRD (end stage renal disease) Code(s): N18.6 - END STAGE RENAL DISEASE (5) CAD (coronary artery disease) Code(s): I25.10 - ATHSCL HEART DISEASE OF [place] CORONARY ARTERY W/O ANG PCTRS Qualifiers: Coronary Disease-Associated Artery/Lesion type: unspecified vessel or lesion type Associated angina: angina presence unspecified (6) CHF (congestive heart failure) Code(s): I50.9 - HEART FAILURE, UNSPECIFIED Qualifiers: Heart failure type: systolic Heart failure chronicity: acute on chronic Qualified Code(s): I50.23 - Acute on chronic systolic (congestive) heart failure (7) Hypertension Code(s): I10 - ESSENTIAL (PRIMARY) HYPERTENSION Qualifiers: Hypertension type: unspecified Qualified Code(s): I10 - Essential (primary ) hypertension (8) Normocytic anemia Code(s): D64.9 - ANEMIA, UNSPECIFIED (9) Non-insulin treated type 2 diabetes mellitus Code(s): E11.9 - TYPE 2 DIABETES MELLITUS WITHOUT COMPLICATIONS (10) CVA (cerebral vascular accident) Code(s): I63.9 - CEREBRAL INFARCTION, UNSPECIFIED Qualifiers: Laterality of affected vessel: unspecified Visit type - Emergency Visit Emergency Visit: Yes ED Registration Date: 05/10/19 Care time: The patient presented to the Emergency Department on the above date and was hospitalized for further evaluation of their emergent condition. - New Patient This patient is new to me today: No - Critical Care Critical Care patient: No ATTENDING PHYSICIAN STATEMENT I saw and evaluated the patient. I reviewed the resident's note and discussed the case with the resident. I agree with the resident's findings and plan as documented. SUBJECTIVE: OBJECTIVE: ASSESSMENT AND PLAN:
[2019-05-11] MEDS ORDERED: EPOETIN ALFA 3,000 UNIT/1 ML ML IVPUSH ONE (10:30)
[2019-05-11] MEDS: MECLIZINE HCL 12.5 MG TABLET PO SCH ×3 (10:50→22:04)
[2019-05-11] MEDS: TAMSULOSIN HCL 0.4 MG CAP PO SCH ×2 (10:50→15:09)
[2019-05-11] MEDS: ASPIRIN 81 MG CHEWABLE TABLETS PO SCH ×2 (10:50→15:10)
[2019-05-11] MEDS: LABETALOL HCL 100 MG TABLET (FP) PO SCH ×2 (10:51→22:04)
[2019-05-11] MEDS: NIFEdipine E.R 60 MG TABLET (UD) PO SCH ×2 (10:51→15:15)
[2019-05-11] MEDS: CLOPIDOGREL BISULFATE 75 MG TABLET (FP) PO SCH ×2 (10:51→15:10)
[2019-05-11] MEDS: MIDODRINE HCL 2.5 MG TABLET PO SCH ×3 (10:51→17:52)
[2019-05-11] MEDS: LOSARTAN POTASSIUM 50 MG TABLET (FP) PO SCH ×2 (10:51→15:09)
[2019-05-11] MEDS: ISOSORBIDE MONONITRATE 30 MG TAB.SR.24H (FP) PO SCH ×2 (10:51→15:10)
[2019-05-11] MEDS: CEFTRIAXONE 1 GM in DEXTROSE 5%-WATER - 50 ML IVPB SCH ×2 (10:52→15:15)
[2019-05-11] MEDS: PANTOPRAZOLE 40 MG TABLET (FP) PO SCH ×2 (10:52→15:14)
[2019-05-11 11:08] LABS: BASO % 0.6 % (0-2.0); EOS % 1.2 % (0-4.5); HEMATOCRIT 26.1 % (35.4-49); HEMOGLOBIN 8.4 GM/dL (11.7-16.9); LYMPH % 14.1 % (8-40); MCH 29.2 pg (25.7-33.7); MCHC 32.1 g/dl (32.0-35.9); MEAN CELL VOLUME 90.9 fl (80-96); MEAN PLT VOLUME 7.5 fl (7.5-11.1); MONO % 8.2 % (3.8-10.2); NEUT % 75.9 % (42.8-82.8); PLATELET COUNT 256 K/MM3 (134-434); RBC 2.87 M/mm3 (4.00-5.60); RDW 13.3 % (11.9-15.9); WHITE BLOOD COUNT 8.6 K/mm3 (4.0-10.0)
[2019-05-11 11:31] LABS: ALBUMIN 2.8 g/dl (3.4-5.0); BILIRUBIN,TOTAL 0.4 mg/dL (0.2-1); BLOOD UREA NITROGEN 65.8 mg/dL (7-18); CALCIUM 7.5 mg/dL (8.5-10.1); CREATININE 5.2 mg/dL (0.55-1.3); PHOSPHOROUS 3.6 mg/dL (2.5-4.9); POTASSIUM 4.9 mmol/L (3.5-5.1); TOT PROT 6.4 g/dl (6.4-8.2)
--- NOTE | 2019-05-11 13:04 | CONSULT ---
Consult - text type - Consultation Consultation Note: Renal consult for ESRD on HD This is a 59 year old gentleman with history of ESRD on HD ( twice a week), CHF, DM, Hypertension, CVA, hyperlipidemia who presented from home with complaints of epigastric pain with nausea and vomiting and found to have LLL PNA. Pt also reports productive cough for several days. Denies any sob , chest pain, abd pain, fever or chills. Last dialysis was Friday. PMHx: as above Allergies: NKDA Family Hx: NC Social Hx: NC ROS: as per HPI, all other pertinent ros negative Home Medications Medication Instructions Recorded Ergocalciferol (Vitamin D2) 50,000 unit PO WEEKLY 09/25/18 [Vitamin D2] Aspirin [ASA -] 81 mg PO DAILY #30 tab.chew 11/20/18 Atorvastatin Ca [Lipitor] 40 mg PO HS #30 tablet 11/20/18 Clopidogrel Bisulfate [Plavix -] 75 mg PO DAILY #30 tablet 11/20/18 Isosorbide Mononitrate [Imdur -] 30 mg PO DAILY #30 tab.sr.24h 11/20/18 Labetalol HCl [Normodyne -] 200 mg PO BID 01/23/19 Nifedipine ER [Procardia XL -] 60 mg PO DAILY 01/23/19 Glipizide [Glucotrol] 10 mg PO BID 03/19/19 Losartan Potassium [Cozaar -] 50 mg PO DAILY 03/19/19 Meclizine HCl [Antivert -] 12.5 mg PO BID #60 tablet 03/31/19 Midodrine HCl [Proamatine -] 2.5 mg PO TID 05/10/19 Tamsulosin HCl [Flomax] 0.4 mg PO DAILY 05/10/19 Vital Signs Temperature 99.2 F 05/11/19 06:00 Pulse Rate 78 05/11/19 06:00 Respiratory Rate 20 05/11/19 06:00 Blood Pressure 150/85 05/11/19 06:00 O2 Sat by Pulse Oximetry (%) 96 05/10/19 15:43 Intake & Output 05/09/19 05/09/19 05/10/19 05/11/19 00:59 23:59 23:59 23:59 Intake Total 920 100 Balance 920 100 Weight 99.45 kg 103.918 kg NAD awake and alert neck supple RRR CTA soft NT/ND no Le edema Right IJ tunneled catheter CBC, BMP 05/11/19 10:10 05/11/19 10:10 Current Medications Al Hydroxide/Mg Hydroxide (Mylanta Oral Suspension -) 30 ml PO Q6H PRN PRN Reason: DYSPEPSIA Last Admin: 05/11/19 06:57 Dose: 30 ml Aspirin (Asa -) 81 mg PO DAILY [facility] Last Admin: 05/11/19 10:50 Dose: Not Given Atorvastatin Calcium (Lipitor -) 40 mg PO HS [facility] Last Admin: 05/10/19 21:08 Dose: 40 mg Clopidogrel Bisulfate (Plavix -) 75 mg PO DAILY [facility] Last Admin: 05/11/19 10:51 Dose: Not Given Ergocalciferol (Drisdol -) 50,000 unit PO Mo [facility] Last Admin: 05/10/19 17:47 Dose: 50,000 unit Famotidine (Acid Animal Shelter Manager) 10 mg PO DAILY [facility] Heparin Sodium (Porcine) (Heparin -) 5,000 unit SQ TID [facility] Last Admin: 05/11/19 05:55 Dose: 5,000 unit Ceftriaxone Sodium 1 gm/ (Dextrose) 50 mls @ 100 mls/hr IVPB DAILY [facility]; Protocol Last Admin: 05/11/19 10:52 Dose: Not Given Vancomycin HCl (Vancomycin (Pre-Docked)) 1,000 mg in 250 mls @ 166.667 mls/hr IVPB ONCE ONE Stop: 05/11/19 15:29 Insulin Aspart (Novolog Vial Sliding Scale -) 1 vial SQ ACHS [facility]; Protocol Last Admin: 05/11/19 10:52 Dose: Not Given Isosorbide Mononitrate (Imdur -) 30 mg PO DAILY [facility] Last Admin: 05/11/19 10:51 Dose: Not Given Labetalol HCl (Normodyne -) 200 mg PO BID [facility] Last Admin: 05/11/19 10:51 Dose: Not Given Losartan Potassium (Cozaar -) 50 mg PO DAILY [facility] Last Admin: 05/11/19 10:51 Dose: Not Given Meclizine HCl (Antivert -) 12.5 mg PO BID [facility] Last Admin: 05/11/19 10:50 Dose: Not Given Midodrine (Proamatine -) 2.5 mg PO TID-MID [facility] Last Admin: 05/11/19 10:51 Dose: Not Given Nifedipine (Procardia Xl -) 60 mg PO DAILY [facility] Last Admin: 05/11/19 10:51 Dose: Not Given Pantoprazole Sodium (Protonix -) 40 mg PO DAILY [facility] Last Admin: 05/11/19 10:52 Dose: Not Given Tamsulosin HCl (Flomax -) 0.4 mg PO DAILY@0830 [facility] Last Admin: 05/11/19 10:50 Dose: Not Given 59 year old gentleman with history of ESRD on HD (twice a week) , CHF, DM, Hypertension, CVA, hyperlipidemia who presented from home with complaints of epigastric pain with nausea and vomiting and found to have LLL PNA. 1. LLL Pneumonia 2. ESRD on HD 3. CHF w/o signs of exacerbation 4. hypertension 5. DM type 2 Tolerating dialysis well this AM. Will continue HD on Friday/Friday as is his outpatient schedule Continue antibiotics as per ID Sodium/Fluid restriction Continue Losartan/Labetalol/Nifedpine for hypertension continue flomax Thank you Will follow Mansoor Quiroz DO
[2019-05-11] MEDS: HEPARIN NA (PORCINE) 5,000 UNITS/ML 1ML VIAL IVPUSH SCH (13:42)
[2019-05-11] MEDS ORDERED: DEXTROSE 5%-WATER - 50 ML IVPB ONE (13:44)
[2019-05-11] MEDS ORDERED: cefTRIAXone SODIUM 1 GM VIAL ONE (13:44)
[2019-05-11] MEDS ORDERED: VANCOMYCIN 1 GRAM (PRE-DOCKED) 1,000 MG/250 ML BAG IVPB ONE (14:00)
[2019-05-11] MEDS ORDERED: VANCOMYCIN HCL 1,250 MG in DEXTROSE 5%-WATER - 250 ML IVPB SCH (15:00)
[2019-05-11 15:08] LABS: CREATININE 2.3 mg/dL (0.55-1.3)
[2019-05-11] MEDS: FAMOTIDINE 10 MG TABLET PO SCH (15:09)
--- NOTE | 2019-05-11 15:11 | PN ---
Teaching Attending Note Name of Resident: Norma Zurita ATTENDING PHYSICIAN STATEMENT I saw and evaluated the patient. I reviewed the resident's note and discussed the case with the resident. I agree with the resident's findings and plan as documented. SUBJECTIVE: PT SEEN ON HD OFFERS NO COMPLAINTS AFEBRILE WBC IMPROVED BC (-) LEGIONELLA/ PNEUMOCOCCAL AG (-) OBJECTIVE: ANICTERIC COR S1S2 DIMINISHED BS BILATERALLY ABDO NON TENDER TRACE EDEMA ASSESSMENT AND PLAN: LLL PNEUMONIA ESRD CONTINUE CEFTRIAXONE REDOSE VANCOMYCIN
--- NOTE | 2019-05-11 16:31 | PN ---
Teaching Attending Note Name of Resident: Dragan Neumann ATTENDING PHYSICIAN STATEMENT I saw and evaluated the patient. I reviewed the resident's note and discussed the case with the resident. I agree with the resident's findings and plan as documented. SUBJECTIVE: Patient reports epigastric burning. He denies cough, SOB, nausea, vomiting. OBJECTIVE: Vital Signs Period Temp Pulse Resp BP Sys/Lopez Pulse Ox Last 24 Hr 98.4 F-99.2 F 76-84 18-20 146-182/82-100 96 HEART: S1S2, RRR LUNGS: Clear ABDOMEN: Soft, non-tender, non-distended, normal BS EXTREMITIES: No edema Laboratory Results - last 24 hr 05/10/19 05/10/19 05/11/19 17:32 21:14 05:53 WBC RBC Hgb Hct MCV MCH MCHC RDW Plt Count MPV Absolute Neuts (auto) Neutrophils % Lymphocytes % Monocytes % Eosinophils % Basophils % Nucleated RBC % Sodium Potassium Chloride Carbon Dioxide Anion Gap BUN Creatinine Est GFR (CKD-EPI)AfAm Est GFR (CKD-EPI)NonAf POC Glucometer 169 129 138 Random Glucose Calcium Phosphorus Magnesium Total Bilirubin AST ALT Alkaline Phosphatase Total Protein Albumin Random Vancomycin 05/11/19 05/11/19 05/11/19 10:10 10:10 10:10 WBC 8.6 RBC 2.87 L Hgb 8.4 L Hct 26.1 L D MCV 90.9 MCH 29.2 MCHC 32.1 RDW 13.3 Plt Count 256 D MPV 7.5 Absolute Neuts (auto) 6.6 Neutrophils % 75.9 Lymphocytes % 14.1 D Monocytes % 8.2 Eosinophils % 1.2 D Basophils % 0.6 D Nucleated RBC % 0 Sodium 139 Potassium 4.9 Chloride 104 Carbon Dioxide 31 Anion Gap 4 L BUN 65.8 H Creatinine 5.2 H Est GFR (CKD-EPI)AfAm 13.04 Est GFR (CKD-EPI)NonAf 11.25 POC Glucometer Random Glucose 154 H Calcium 7.5 L Phosphorus 3.6 Magnesium 3.0 H Total Bilirubin 0.4 AST 9 L ALT 36 Alkaline Phosphatase 103 Total Protein 6.4 Albumin 2.8 L Random Vancomycin 10.2 L 05/11/19 14:10 WBC RBC Hgb Hct MCV MCH MCHC RDW Plt Count MPV Absolute Neuts (auto) Neutrophils % Lymphocytes % Monocytes % Eosinophils % Basophils % Nucleated RBC % Sodium Potassium Chloride Carbon Dioxide Anion Gap BUN 24.0 H Creatinine 2.3 H Est GFR (CKD-EPI)AfAm 34.97 Est GFR (CKD-EPI)NonAf 30.17 POC Glucometer Random Glucose Calcium Phosphorus Magnesium Total Bilirubin AST ALT Alkaline Phosphatase Total Protein Albumin Random Vancomycin Current Medications Generic Name Dose Route Start Last Admin Trade Name Freq PRN Reason Stop Dose Admin Al Hydroxide/Mg Hydroxide 30 ml 05/10/19 15:34 05/11/19 06:57 Mylanta Oral Suspension - PO 30 ml Q6H PRN Administration DYSPEPSIA Aspirin 81 mg 05/10/19 14:00 05/11/19 15:10 Asa - PO 81 mg DAILY [facility] Administration Atorvastatin Calcium 40 mg 05/10/19 22:00 05/10/19 21:08 Lipitor - PO 40 mg HS [facility] Administration Clopidogrel Bisulfate 75 mg 05/10/19 14:00 05/11/19 15:10 Plavix - PO 75 mg DAILY [facility] Administration Ergocalciferol 50,000 unit 05/10/19 14:00 05/10/19 17:47 Drisdol - PO 50,000 unit Mo [facility] Administration Famotidine 10 mg 05/11/19 10:00 05/11/19 15:09 Acid Supervisor Twisting Department PO 10 mg DAILY [facility] Administration Heparin Sodium (Porcine) 5,000 unit 05/10/19 14:00 05/11/19 15:10 Heparin - SQ Not Given TID [facility] Ceftriaxone Sodium 1 gm/ 50 mls @ 100 mls/hr 05/10/19 16:15 05/11/19 15:15 Dextrose IVPB 100 mls/hr DAILY [facility] Administration Protocol Insulin Aspart 1 vial 05/10/19 16:30 05/11/19 10:52 Novolog Vial Sliding Scale - SQ Not Given ACHS [facility] Protocol Isosorbide Mononitrate 30 mg 05/11/19 10:00 05/11/19 15:10 Imdur - PO 30 mg DAILY [facility] Administration Labetalol HCl 200 mg 05/10/19 22:00 05/11/19 10:51 Normodyne - PO Not Given BID [facility] Losartan Potassium 50 mg 05/11/19 10:00 05/11/19 15:09 Cozaar - PO 50 mg DAILY [facility] Administration Meclizine HCl 12.5 mg 05/10/19 22:00 05/11/19 15:09 Antivert - PO 12.5 mg BID [facility] Administration Midodrine 2.5 mg 05/10/19 18:00 05/11/19 15:10 Proamatine - PO Not Given TID-MID [facility] Nifedipine 60 mg 05/11/19 10:00 05/11/19 15:15 Procardia Xl - PO 60 mg DAILY [facility] Administration Pantoprazole Sodium 40 mg 05/11/19 10:00 05/11/19 15:14 Protonix - PO 40 mg DAILY [facility] Administration Tamsulosin HCl 0.4 mg 05/10/19 15:15 05/11/19 15:09 Flomax - PO 0.4 mg DAILY@0830 [facility] Administration ASSESSMENT AND PLAN: This is a 59 year old man with a history of ESRD, CAD with stents, chronic systolic heart failure, HTN, hyperlipidemia, type 2 DM, CVA, BPH, anemia who presented to the ED with epigastric pain and vomiting. 1. Pneumonia - Continue ceftriaxone, vancomycin - Urine Legionella, Pneumococcus Ag negative - Influenza A/B negative - Oxygen to maintain saturation >90% 2. Vomiting - Improved 3. GERD/gastritis/esophagitis - Continue Protonix 4. ESRD - Continue HD 5. CAD, history of stents - Continue aspirin, Plavix, Lipitor, Procardia XL, Imdur 6. Chronic systolic heart failure - Stable - Continue Cozaar 7. HTN - Continue Cozaar, Procardia XL, Labetalol 8. Hyperlipidemia - Continue Lipitor 9. Type 2 DM - Glipizide held - Continue Novolog sliding scale 10. Anemia secondary to chronic illness/ESRD 11. BPH - Continue Flomax 12. History of CVA - Continue aspirin, Plavix, Lipitor 13. History of orthostatic hypotension - Midodrine discontinued secondary to hypertension
[2019-05-11] MEDS ORDERED: PT OWN MED DRAWER 7, Y5N ONE (17:14)
[2019-05-11] MEDS ORDERED: INSULIN (NOVOLOG) ASPART 100 UNITS/ML 10ML VIAL ONE ×2 (17:15→21:03)
--- NOTE | 2019-05-11 17:34 | PN ---
Addendum entered and electronically signed by Dragan Neumann, RESIDENT 05/11/19 17:54: ADDENDUM: Stopping Midodrine due to HTN throughout stay. Will assess if needed for dialysis days only. Original Note: Progress Note (short form) - Note Progress Note: HPI: Pt still has substernal burning symptoms from his previous GERD. Denies SOB , denies cough, denies fever/chills at this point Vital Signs Temperature 98.6 F 05/11/19 15:00 Pulse Rate 76 05/11/19 15:00 Respiratory Rate 20 05/11/19 15:00 Blood Pressure 152/84 05/11/19 15:00 O2 Sat by Pulse Oximetry (%) 96 05/11/19 09:00 PE: Gen: NAD, awake, alert, oriented x3 HEENT: NC/AT, sclera anicteric, JONATHAN, EOMI, MMM Neck: No JVD noted, Port R IJ site C/D/I Lung: Improved breath sounds, good inspiratory effort, no accessory muscle use. On RA CARD: RRR no murmurs appreciated ABD: Soft, NT/ND, normoactive BS, no abdominal wall edema noted EXT: No edema, strong pulses CBC, BMP 05/11/19 10:10 05/11/19 14:10 Microbiology 05/10/19 12:30 Blood - Peripheral Venous Blood Culture - Preliminary NO GROWTH OBTAINED AFTER 24 HOURS, INCUBATION TO CONTINUE FOR 4 DAYS. 05/10/19 12:35 Blood - Peripheral Venous Blood Culture - Preliminary NO GROWTH OBTAINED AFTER 24 HOURS, INCUBATION TO CONTINUE FOR 4 DAYS. 05/10/19 22:39 Urine For Antigen Detection Legionella Antigen - Final 05/10/19 22:39 Urine For Antigen Detection Streptococcus pneumoniae Antigen (M - Final Active Medications Al Hydroxide/Mg Hydroxide (Mylanta Oral Suspension -) 30 ml PO Q6H PRN PRN Reason: DYSPEPSIA Last Admin: 05/11/19 06:57 Dose: 30 ml Aspirin (Asa -) 81 mg PO DAILY [facility] Last Admin: 05/11/19 15:10 Dose: 81 mg Atorvastatin Calcium (Lipitor -) 40 mg PO HS [facility] Last Admin: 05/10/19 21:08 Dose: 40 mg Clopidogrel Bisulfate (Plavix -) 75 mg PO DAILY [facility] Last Admin: 05/11/19 15:10 Dose: 75 mg Ergocalciferol (Drisdol -) 50,000 unit PO Mo [facility] Last Admin: 05/10/19 17:47 Dose: 50,000 unit Famotidine (Acid Pulmonary Function Technician) 10 mg PO DAILY [facility] Last Admin: 05/11/19 15:09 Dose: 10 mg Heparin Sodium (Porcine) (Heparin -) 5,000 unit SQ TID [facility] Last Admin: 05/11/19 15:10 Dose: Not Given Ceftriaxone Sodium 1 gm/ (Dextrose) 50 mls @ 100 mls/hr IVPB DAILY [facility]; Protocol Last Admin: 05/11/19 15:15 Dose: 100 mls/hr Insulin Aspart (Novolog Vial Sliding Scale -) 1 vial SQ ACHS [facility]; Protocol Last Admin: 05/11/19 10:52 Dose: Not Given Isosorbide Mononitrate (Imdur -) 30 mg PO DAILY [facility] Last Admin: 05/11/19 15:10 Dose: 30 mg Labetalol HCl (Normodyne -) 200 mg PO BID [facility] Last Admin: 05/11/19 10:51 Dose: Not Given Losartan Potassium (Cozaar -) 50 mg PO DAILY [facility] Last Admin: 05/11/19 15:09 Dose: 50 mg Meclizine HCl (Antivert -) 12.5 mg PO BID [facility] Last Admin: 05/11/19 15:09 Dose: 12.5 mg Midodrine (Proamatine -) 2.5 mg PO TID-MID [facility] Last Admin: 05/11/19 15:10 Dose: Not Given Nifedipine (Procardia Xl -) 60 mg PO DAILY [facility] Last Admin: 05/11/19 15:15 Dose: 60 mg Pantoprazole Sodium (Protonix -) 40 mg PO DAILY [facility] Last Admin: 05/11/19 15:14 Dose: 40 mg Tamsulosin HCl (Flomax -) 0.4 mg PO DAILY@0830 [facility] Last Admin: 05/11/19 15:09 Dose: 0.4 mg Assessment and Plan: LLL Community-Acquired Pneumonia Prior Esophagitis 2/2 to GERD ESRD (Tue/Sat) 2/2 to diabetic nephropathy CAD s/p PCI stenting Type 2 DM History of HTN HLD HFrEF history, not in exacerbation CVA history BPH --Continue Rocephin 1gm qdaily for CAPna --Pt remains afebrile at this point --BCx and Legionella all negative --Anticipated transition to PO antibiotics for CAPna within 24hours --Pepcid daily added to regiment for GERD symptoms --Protonix on board already; mylanta as needed --Dialysis today through port --Nephrology on board --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 Asif Neumann, DO - IM PGY-3
[2019-05-11] MEDS: ATORVASTATIN CA 40 MG TABLET (FP) PO SCH (22:04)
[2019-05-12] MEDS: HEPARIN NA (PORCINE) 5,000 UNITS/ML 1ML VIAL SQ SCH ×2 (07:21→15:19)
[2019-05-12] MEDS: INSULIN SLIDING SCALE (NOVOLOG) 1 VIAL SQ SCH ×3 (07:21→17:46)
[2019-05-12 08:07] LABS: EOS % 2.9 % (0-4.5); HEMATOCRIT 27.1 % (35.4-49); LYMPH % 24.1 % (8-40); MCH 29.7 pg (25.7-33.7); MCHC 33.1 g/dl (32.0-35.9); MEAN CELL VOLUME 89.8 fl (80-96); MEAN PLT VOLUME 7.4 fl (7.5-11.1); MONO % 12.1 % (3.8-10.2); NEUT % 59.9 % (42.8-82.8); PLATELET COUNT 281 K/MM3 (134-434); RBC 3.02 M/mm3 (4.00-5.60); RDW 13.1 % (11.9-15.9); WHITE BLOOD COUNT 7.7 K/mm3 (4.0-10.0)
[2019-05-12 08:19] LABS: BLOOD UREA NITROGEN 38.7 mg/dL (7-18); CALCIUM 7.5 mg/dL (8.5-10.1); CREATININE 3.8 mg/dL (0.55-1.3); POTASSIUM 4.3 mmol/L (3.5-5.1)
[2019-05-12] MEDS ORDERED: cefTRIAXone SODIUM 1 GM VIAL ONE (10:24)
[2019-05-12] MEDS ORDERED: DEXTROSE 5%-WATER - 50 ML IVPB ONE (10:24)
[2019-05-12] MEDS: CEFTRIAXONE 1 GM in DEXTROSE 5%-WATER - 50 ML IVPB SCH (10:59)
[2019-05-12] MEDS: MECLIZINE HCL 12.5 MG TABLET PO SCH (11:00)
[2019-05-12] MEDS: ISOSORBIDE MONONITRATE 30 MG TAB.SR.24H (FP) PO SCH (11:00)
[2019-05-12] MEDS: TAMSULOSIN HCL 0.4 MG CAP PO SCH (11:00)
[2019-05-12] MEDS: LABETALOL HCL 100 MG TABLET (FP) PO SCH (11:00)
[2019-05-12] MEDS: LOSARTAN POTASSIUM 50 MG TABLET (FP) PO SCH (11:00)
[2019-05-12] MEDS: CLOPIDOGREL BISULFATE 75 MG TABLET (FP) PO SCH (11:00)
[2019-05-12] MEDS: FAMOTIDINE 10 MG TABLET PO SCH (11:01)
[2019-05-12] MEDS: ASPIRIN 81 MG CHEWABLE TABLETS PO SCH (11:01)
[2019-05-12] MEDS: PANTOPRAZOLE 40 MG TABLET (FP) PO SCH (11:01)
[2019-05-12] MEDS: NIFEdipine E.R 60 MG TABLET (UD) PO SCH (11:01)
[2019-05-12] MEDS ORDERED: CEFUROXIME AXETIL 500 MG TABLET PO SCH (13:15)
--- NOTE | 2019-05-12 13:25 | DS ---
Physical Exam: SUBJECTIVE: No complaints today. No acute events. OBJECTIVE: Vital Signs Period Temp Pulse Resp BP Sys/Lopez Pulse Ox Last 24 Hr 97.8 F-98.9 F 76-82 18-20 124-182/72-100 PHYSICAL EXAM PE: Gen: NAD, awake, alert, oriented x3 HEENT: NC/AT, sclera anicteric, JONATHAN, EOMI, MMM Neck: No JVD noted, Port R IJ site C/D/I Lung: Improved breath sounds, good inspiratory effort, no accessory muscle use. On RA CARD: RRR no murmurs appreciated ABD: Soft, NT/ND, normoactive BS, no abdominal wall edema noted EXT: No edema, strong pulses LABS Laboratory Results - last 24 hr 05/11/19 05/11/19 05/12/19 14:10 16:49 06:10 WBC 7.7 RBC 3.02 L Hgb 9.0 L Hct 27.1 L MCV 89.8 MCH 29.7 MCHC 33.1 RDW 13.1 Plt Count 281 MPV 7.4 L Absolute Neuts (auto) 4.6 Neutrophils % 59.9 D Lymphocytes % 24.1 D Monocytes % 12.1 H Eosinophils % 2.9 D Basophils % 1.0 Nucleated RBC % 0 Sodium Potassium Chloride Carbon Dioxide Anion Gap BUN 24.0 H Creatinine 2.3 H Est GFR (CKD-EPI)AfAm 34.97 Est GFR (CKD-EPI)NonAf 30.17 POC Glucometer 204 Random Glucose Hemoglobin A1c % Calcium 05/12/19 05/12/19 05/12/19 06:10 06:10 07:11 WBC RBC Hgb Hct MCV MCH MCHC RDW Plt Count MPV Absolute Neuts (auto) Neutrophils % Lymphocytes % Monocytes % Eosinophils % Basophils % Nucleated RBC % Sodium 139 Potassium 4.3 Chloride 101 Carbon Dioxide 33 H Anion Gap 4 L BUN 38.7 H Creatinine 3.8 H Est GFR (CKD-EPI)AfAm 19.06 Est GFR (CKD-EPI)NonAf 16.44 POC Glucometer 101 Random Glucose 116 H Hemoglobin A1c % < 3.5 L Calcium 7.5 L 05/12/19 11:02 WBC RBC Hgb Hct MCV MCH MCHC RDW Plt Count MPV Absolute Neuts (auto) Neutrophils % Lymphocytes % Monocytes % Eosinophils % Basophils % Nucleated RBC % Sodium Potassium Chloride Carbon Dioxide Anion Gap BUN Creatinine Est GFR (CKD-EPI)AfAm Est GFR (CKD-EPI)NonAf POC Glucometer 213 Random Glucose Hemoglobin A1c % Calcium Microbiology 05/10/19 12:30 Blood - Peripheral Venous Blood Culture - Final NO GROWTH AFTER 5 DAYS INCUBATION 05/10/19 12:35 Blood - Peripheral Venous Blood Culture - Final NO GROWTH AFTER 5 DAYS INCUBATION 05/10/19 22:39 Urine For Antigen Detection Legionella Antigen - Final 05/10/19 22:39 Urine For Antigen Detection Streptococcus pneumoniae Antigen (M - Final Imaging: CXR: 05/12/19: Single AP view of the chest reveals little change from 05/10/2019. Again noted is the prominent mediastinum with right port, normal hilar and fluid with atelectasis or infiltrate at the left base. Correlation recommended. CXR 05/10/19: Single AP view of the chest reveals infiltrate with fluid and/or atelectasis at the left base which is new since 03/25/2019. The right line and prominent mediastinum persist with clear left upper lobe and right lung. The imaging is available for review. HOSPITAL COURSE: Date of Admission:05/10/19 Date of Discharge: 05/12/19 Pt seen at this facility due to non-radiating epigastric pain and shortness of breath, however upon workup pt was noted to have LLL pneumonia on CXR. Pt was placed on IV broadspectrum antibiotics and continued supportive care. Pt symptoms improved within 48 hours and he is being transition to oral Ceftin 500mg PO for 7 days. In addition, during pt's hospital course he was noted to be on Midodrine with Stage II hypertension. We discontinued his midodrine with resolution of hypertensive episodes. Minutes to complete discharge: 33 Discharge Summary Problems reviewed: Yes Reason For Visit: EPIGASTRIC PAIN,NAUSEA,VOMITTING,PNEUMONIA Current Active Problems CVA (cerebral vascular accident) (Acute) Epigastric abdominal pain (Acute) Leukocytosis (Acute) Nausea & vomiting (Acute) Non-insulin treated type 2 diabetes mellitus (Acute) Pneumonia (Acute) Transaminitis (Acute) Condition: Improved - Instructions Diet, Activity, Other Instructions: You were seen here for a pneumonia. You were treated with IV antibiotics and assessed by the infection doctors. Your pneumonia is improving and you can go back home to recover on oral antibiotics. In addition your burning pain is reflux related. You were given medications for that and will need to continue on those medications MEDICATIONS: Please continue on Protonix 40mg DAILY for your reflux symptoms. You can take a Pepcid over the counter every day if the burning becomes particularly bad , but please avoid trigger foods. Please continue on your regularly scheduled dialysis appointments Please STOP taking your Midodrine as you were hypertensive here and controlled without it on board Please continue on oral antibiotics FOLLOW-UP: Please follow-up with Dr. Eid in 3-5 days to update him on your care Please follow-up with Dr. Qurioz/Mingo for your regularly scheduled dialysis days Referrals: Waldemar Eid MD [Primary Care Provider] - Mansoor Quiroz MD [Staff Physician] - (Dialysis schedule Friday and Friday) Disposition: HOME - Home Medications Comprehensive Discharge Medication List: Ambulatory Orders Ergocalciferol (Vitamin D2) [Vitamin D2] 50,000 unit PO WEEKLY 09/25/18 Aspirin [ASA -] 81 mg PO DAILY #30 tab.chew 11/20/18 Atorvastatin Ca [Lipitor] 40 mg PO HS #30 tablet 11/20/18 Clopidogrel Bisulfate [Plavix -] 75 mg PO DAILY #30 tablet 11/20/18 Isosorbide Mononitrate [Imdur -] 30 mg PO DAILY #30 tab.sr.24h 11/20/18 Labetalol HCl [Normodyne -] 200 mg PO BID 01/23/19 Nifedipine ER [Procardia XL -] 60 mg PO DAILY 01/23/19 Glipizide [Glucotrol] 10 mg PO BID 03/19/19 Losartan Potassium [Cozaar -] 50 mg PO DAILY 03/19/19 Meclizine HCl [Antivert -] 12.5 mg PO BID #60 tablet 03/31/19 Tamsulosin HCl [Flomax] 0.4 mg PO DAILY 05/10/19 Cefuroxime Axetil [Ceftin -] 500 mg PO DAILY #3 tablet 05/12/19 Famotidine [Acid Chief Order Dispatcher] 10 mg PO DAILY tablet 05/12/19 Pantoprazole Sodium [Protonix -] 40 mg PO DAILY #30 tablet.ec 05/12/19 This patient is new to me today: No Emergency Visit: Yes ED Registration Date: 05/10/19 Care time: The patient presented to the Emergency Department on the above date and was hospitalized for further evaluation of their emergent condition. Critical Care patient: No - Discharge Referral Referred to [facility] No ATTENDING PHYSICIAN STATEMENT I saw and evaluated the patient. I reviewed the resident's note and discussed the case with the resident. I agree with the resident's findings and plan as documented. SUBJECTIVE: OBJECTIVE: ASSESSMENT AND PLAN:
[2019-05-12 15:15] VITALS: BP 162/92; PULSE 84; TEMP 98.9
--- NOTE | 2019-05-12 15:29 | PN ---
Teaching Attending Note Name of Resident: Dragan Neumann ATTENDING PHYSICIAN STATEMENT I saw and evaluated the patient. I reviewed the resident's note and discussed the case with the resident. I agree with the resident's findings and plan as documented. SUBJECTIVE: Patient has no complaints. OBJECTIVE: Vital Signs Period Temp Pulse Resp BP Sys/Lopez Pulse Ox Last 24 Hr 97.8 F-98.9 F 79-84 18-20 124-162/72-95 HEART: S1S2, RRR LUNGS: Clear ABDOMEN: Soft, non-tender, non-distended, normal BS EXTREMITIES: No edema Laboratory Results - last 24 hr 05/11/19 05/12/19 05/12/19 16:49 06:10 06:10 WBC 7.7 RBC 3.02 L Hgb 9.0 L Hct 27.1 L MCV 89.8 MCH 29.7 MCHC 33.1 RDW 13.1 Plt Count 281 MPV 7.4 L Absolute Neuts (auto) 4.6 Neutrophils % 59.9 D Lymphocytes % 24.1 D Monocytes % 12.1 H Eosinophils % 2.9 D Basophils % 1.0 Nucleated RBC % 0 Sodium 139 Potassium 4.3 Chloride 101 Carbon Dioxide 33 H Anion Gap 4 L BUN 38.7 H Creatinine 3.8 H Est GFR (CKD-EPI)AfAm 19.06 Est GFR (CKD-EPI)NonAf 16.44 POC Glucometer 204 Random Glucose 116 H Hemoglobin A1c % Calcium 7.5 L 05/12/19 05/12/19 05/12/19 06:10 07:11 11:02 WBC RBC Hgb Hct MCV MCH MCHC RDW Plt Count MPV Absolute Neuts (auto) Neutrophils % Lymphocytes % Monocytes % Eosinophils % Basophils % Nucleated RBC % Sodium Potassium Chloride Carbon Dioxide Anion Gap BUN Creatinine Est GFR (CKD-EPI)AfAm Est GFR (CKD-EPI)NonAf POC Glucometer 101 213 Random Glucose Hemoglobin A1c % < 3.5 L Calcium Current Medications Generic Name Dose Route Start Last Admin Trade Name Freq PRN Reason Stop Dose Admin Al Hydroxide/Mg Hydroxide 30 ml 05/10/19 15:34 05/11/19 22:05 Mylanta Oral Suspension - PO 30 ml Q6H PRN Administration DYSPEPSIA Aspirin 81 mg 05/10/19 14:00 05/12/19 11:01 Asa - PO 81 mg DAILY SANGEETHA Administration Atorvastatin Calcium 40 mg 05/10/19 22:00 05/11/19 22:04 Lipitor - PO 40 mg HS SANGEETHA Administration Cefuroxime Axetil 500 mg 05/12/19 13:15 Ceftin - PO DAILY SANGEETHA Clopidogrel Bisulfate 75 mg 05/10/19 14:00 05/12/19 11:00 Plavix - PO 75 mg DAILY SANGEETHA Administration Ergocalciferol 50,000 unit 05/10/19 14:00 05/10/19 17:47 Drisdol - PO 50,000 unit Mo SANGEETHA Administration Famotidine 10 mg 05/11/19 10:00 05/12/19 11:01 Acid Lumber Loader PO 10 mg DAILY SANGEETHA Administration Heparin Sodium (Porcine) 5,000 unit 05/10/19 14:00 05/12/19 15:19 Heparin - SQ 5,000 unit TID SANGEETHA Administration Insulin Aspart 1 vial 05/10/19 16:30 05/12/19 11:03 Novolog Vial Sliding Scale - SQ 4 units ACHS SANGEETHA Administration Protocol Isosorbide Mononitrate 30 mg 05/11/19 10:00 05/12/19 11:00 Imdur - PO 30 mg DAILY SANGEETHA Administration Labetalol HCl 200 mg 05/10/19 22:00 05/12/19 11:00 Normodyne - PO 200 mg BID SANGEETHA Administration Losartan Potassium 50 mg 05/11/19 10:00 05/12/19 11:00 Cozaar - PO 50 mg DAILY SANGEETHA Administration Meclizine HCl 12.5 mg 05/10/19 22:00 05/12/19 11:00 Antivert - PO 12.5 mg BID SANGEETHA Administration Nifedipine 60 mg 05/11/19 10:00 05/12/19 11:01 Procardia Xl - PO 60 mg DAILY SANGEETHA Administration Pantoprazole Sodium 40 mg 05/11/19 10:00 05/12/19 11:01 Protonix - PO 40 mg DAILY SANGEETHA Administration Tamsulosin HCl 0.4 mg 05/10/19 15:15 05/12/19 11:00 Flomax - PO 0.4 mg DAILY@0830 SANGEETHA Administration ASSESSMENT AND PLAN: This is a 59 year old man with a history of ESRD, CAD with stents, chronic systolic heart failure, HTN, hyperlipidemia, type 2 DM, CVA, BPH, anemia who presented to the ED with epigastric pain and vomiting. 1. Pneumonia - Continue ceftriaxone - change to Ceftin on discharge - Urine Legionella, Pneumococcus Ag negative - Influenza A/B negative - Oxygen to maintain saturation >90% 2. Vomiting - Improved 3. GERD/gastritis/esophagitis - Continue Protonix 4. ESRD - Continue HD 5. CAD, history of stents - Continue aspirin, Plavix, Lipitor, Procardia XL, Imdur 6. Chronic systolic heart failure - Stable - Continue Cozaar 7. HTN - Continue Cozaar, Procardia XL, Labetalol 8. Hyperlipidemia - Continue Lipitor 9. Type 2 DM - Glipizide held - Continue Novolog sliding scale 10. Anemia secondary to chronic illness/ESRD 11. BPH - Continue Flomax 12. History of CVA - Continue aspirin, Plavix, Lipitor 13. History of orthostatic hypotension - Midodrine discontinued secondary to hypertension 14. Disposition - Ok for discharge to home today
--- NOTE | 2019-05-12 16:33 | PN ---
Progress Note (short form) - Note Progress Note: Renal follow up for ESRD on HD Seen and examined at the bedside continues to have epigastric discomfort shortness of breath/cough is better no fever or chills s/p dialysis yesterday Vital Signs Temperature 98.9 F 05/12/19 15:14 Pulse Rate 84 05/12/19 15:14 Respiratory Rate 18 05/12/19 15:14 Blood Pressure 162/92 05/12/19 15:14 O2 Sat by Pulse Oximetry (%) 96 05/11/19 09:00 Intake & Output 05/09/19 05/10/19 05/11/19 05/12/19 23:59 23:59 23:59 23:59 Intake Total 944 481 4026 Output Total 3500 Balance 920 -2600 1150 Weight 99.45 kg 103.918 kg 100.788 kg NAD awake and alert neck supple RRR CTA soft NT/ND no LE edema CBC, BMP 05/12/19 06:10 05/12/19 06:10 Current Medications Al Hydroxide/Mg Hydroxide (Mylanta Oral Suspension -) 30 ml PO Q6H PRN PRN Reason: DYSPEPSIA Last Admin: 05/11/19 22:05 Dose: 30 ml Aspirin (Asa -) 81 mg PO DAILY [facility] Last Admin: 05/12/19 11:01 Dose: 81 mg Atorvastatin Calcium (Lipitor -) 40 mg PO HS [facility] Last Admin: 05/11/19 22:04 Dose: 40 mg Cefuroxime Axetil (Ceftin -) 500 mg PO DAILY [facility] Clopidogrel Bisulfate (Plavix -) 75 mg PO DAILY [facility] Last Admin: 05/12/19 11:00 Dose: 75 mg Ergocalciferol (Drisdol -) 50,000 unit PO Mo [facility] Last Admin: 05/10/19 17:47 Dose: 50,000 unit Famotidine (Acid Corporate Webmaster) 10 mg PO DAILY [facility] Last Admin: 05/12/19 11:01 Dose: 10 mg Heparin Sodium (Porcine) (Heparin -) 5,000 unit SQ TID [facility] Last Admin: 05/12/19 15:19 Dose: 5,000 unit Insulin Aspart (Novolog Vial Sliding Scale -) 1 vial SQ ACHS [facility]; Protocol Last Admin: 05/12/19 11:03 Dose: 4 units Isosorbide Mononitrate (Imdur -) 30 mg PO DAILY [facility] Last Admin: 05/12/19 11:00 Dose: 30 mg Labetalol HCl (Normodyne -) 200 mg PO BID [facility] Last Admin: 05/12/19 11:00 Dose: 200 mg Losartan Potassium (Cozaar -) 50 mg PO DAILY [facility] Last Admin: 05/12/19 11:00 Dose: 50 mg Meclizine HCl (Antivert -) 12.5 mg PO BID [facility] Last Admin: 05/12/19 11:00 Dose: 12.5 mg Nifedipine (Procardia Xl -) 60 mg PO DAILY [facility] Last Admin: 05/12/19 11:01 Dose: 60 mg Pantoprazole Sodium (Protonix -) 40 mg PO DAILY [facility] Last Admin: 05/12/19 11:01 Dose: 40 mg Tamsulosin HCl (Flomax -) 0.4 mg PO DAILY@0830 [facility] Last Admin: 05/12/19 11:00 Dose: 0.4 mg 59 year old gentleman with history of ESRD on HD (twice a week) , CHF, DM, Hypertension, CVA, hyperlipidemia who presented from home with complaints of epigastric pain with nausea and vomiting and found to have LLL PNA. 1. LLL Pneumonia 2. ESRD on HD 3. CHF w/o signs of exacerbation 4. hypertension 5. DM type 2 no acute need for dialysis today next scheduled treatment is Friday Continue antibiotics as per ID Sodium/Fluid restriction Continue Losartan/Labetalol/Nifedpine for hypertension continue flomax discharge planning as per primary team Mansoor Quiroz DO
--- NOTE | 2019-05-12 19:17 | PN ---
Physical Exam: SUBJECTIVE: Patient seen and examined. He reports shortness of breath is same as yesterday. He reports new cough with no sputum production. He denies fever and chills. He reports good appetite but still has reflux. OBJECTIVE: Vital Signs Period Temp Pulse Resp BP Sys/Lopez Pulse Ox Last 24 Hr 97.8 F-98.9 F 79-84 18-20 132-162/72-92 96 GENERAL: A&Ox3, in no distress HEAD: Normocephalic, atraumatic EYES: Conjunctiva clear, EOM intact ENT: Ears normal, nares patent, moist mucous membranes NECK: Full ROM LUNGS: Decreased breath sounds left lower base HEART: RRR, no murmur ABDOMEN: Soft, nontender, nondistended, NBS EXTREMITIES: Warm, well-perfused NEUROLOGICAL: Cranial nerves II through XII grossly intact PSYCH: Flat affect SKIN: Warm, dry, normal turgor Laboratory Results - last 24 hr 05/12/19 05/12/19 05/12/19 06:10 06:10 06:10 WBC 7.7 RBC 3.02 L Hgb 9.0 L Hct 27.1 L MCV 89.8 MCH 29.7 MCHC 33.1 RDW 13.1 Plt Count 281 MPV 7.4 L Absolute Neuts (auto) 4.6 Neutrophils % 59.9 D Lymphocytes % 24.1 D Monocytes % 12.1 H Eosinophils % 2.9 D Basophils % 1.0 Nucleated RBC % 0 Sodium 139 Potassium 4.3 Chloride 101 Carbon Dioxide 33 H Anion Gap 4 L BUN 38.7 H Creatinine 3.8 H Est GFR (CKD-EPI)AfAm 19.06 Est GFR (CKD-EPI)NonAf 16.44 POC Glucometer Random Glucose 116 H Hemoglobin A1c % < 3.5 L Calcium 7.5 L 05/12/19 05/12/19 05/12/19 07:11 11:02 17:42 WBC RBC Hgb Hct MCV MCH MCHC RDW Plt Count MPV Absolute Neuts (auto) Neutrophils % Lymphocytes % Monocytes % Eosinophils % Basophils % Nucleated RBC % Sodium Potassium Chloride Carbon Dioxide Anion Gap BUN Creatinine Est GFR (CKD-EPI)AfAm Est GFR (CKD-EPI)NonAf POC Glucometer 101 213 167 Random Glucose Hemoglobin A1c % Calcium ASSESSMENT/PLAN: Mr. Prater is a 59y/o male with CAD s/p 2 stents, ESRD on HD /Fri, non-IDDM, HTN, HLD, CHF, and CVA who presents with epigastric pain and NBNB vomiting x2 days. Vomiting has resolved. Pt reports chills and shortness of breath x1 day. CXR shows fluid and/or atelectasis in left lung base. He is currently being treated for possible left lower lobe pneumonia. #left lower lobe pneumonia Leukocytosis resolved and afebrile. Rapid flu, Legionella, and strep pneumo negative. Given vancomycin x 1 yesterday. CXR on admission shows possible atelectasis left lung base. -switch to Ceftin 500mg daily -repeat CXR -urine cx pending -sputum cx ordered #ESRD on HD /Fri #prolonged QTc 484 -avoid prolonging agents Problem List - Problems (1) Pneumonia Code(s): J18.9 - PNEUMONIA, UNSPECIFIED ORGANISM Qualifiers: Pneumonia type: due to unspecified organism Laterality: left Lung location: lower lobe of lung Qualified Code(s): J18.1 - Lobar pneumonia, unspecified organism (2) Leukocytosis Code(s): D72.829 - ELEVATED WHITE BLOOD CELL COUNT, UNSPECIFIED Qualifiers: Leukocytosis type: unspecified Qualified Code(s): D72.829 - Elevated white blood cell count, unspecified (3) Transaminitis Code(s): R74.0 - NONSPEC ELEV OF LEVELS OF TRANSAMNS & LACTIC ACID DEHYDRGNSE (4) ESRD (end stage renal disease) Code(s): N18.6 - END STAGE RENAL DISEASE (5) CAD (coronary artery disease) Code(s): I25.10 - ATHSCL HEART DISEASE OF [place] CORONARY ARTERY W/O ANG PCTRS Qualifiers: Coronary Disease-Associated Artery/Lesion type: unspecified vessel or lesion type Associated angina: angina presence unspecified (6) CHF (congestive heart failure) Code(s): I50.9 - HEART FAILURE, UNSPECIFIED Qualifiers: Heart failure type: systolic Heart failure chronicity: acute on chronic Qualified Code(s): I50.23 - Acute on chronic systolic (congestive) heart failure (7) Hypertension Code(s): I10 - ESSENTIAL (PRIMARY) HYPERTENSION Qualifiers: Hypertension type: unspecified Qualified Code(s): I10 - Essential (primary ) hypertension (8) Normocytic anemia Code(s): D64.9 - ANEMIA, UNSPECIFIED (9) Non-insulin treated type 2 diabetes mellitus Code(s): E11.9 - TYPE 2 DIABETES MELLITUS WITHOUT COMPLICATIONS (10) CVA (cerebral vascular accident) Code(s): I63.9 - CEREBRAL INFARCTION, UNSPECIFIED Qualifiers: Laterality of affected vessel: unspecified Visit type - Emergency Visit Emergency Visit: Yes ED Registration Date: 05/10/19 Care time: The patient presented to the Emergency Department on the above date and was hospitalized for further evaluation of their emergent condition. - New Patient This patient is new to me today: No - Critical Care Critical Care patient: No ATTENDING PHYSICIAN STATEMENT I saw and evaluated the patient. I reviewed the resident's note and discussed the case with the resident. I agree with the resident's findings and plan as documented. SUBJECTIVE: OBJECTIVE: ASSESSMENT AND PLAN:
--- NOTE | 2019-05-12 21:10 | PN ---
Teaching Attending Note Name of Resident: Norma Zurita ATTENDING PHYSICIAN STATEMENT I saw and evaluated the patient. I reviewed the resident's note and discussed the case with the resident. I agree with the resident's findings and plan as documented. SUBJECTIVE: CLINICALLY IMPROVED DENIES CP/SOB/COUGH NO F/C OBJECTIVE: COR S1S2 LUNGS CLEAR ASSESSMENT AND PLAN: LLL PNEUMONIA CLINICALLY IMPROVED ESRD SUBSTITUTE CEFTIN 500MG PO QD X 7D
== END 2019-05-12 18:43 | disposition home or self-care (01) | DRG 139 ==
LOC: JER 08:38 → JERBED 12:58 → J8W 14:39
PROVIDERS: ADMIT Internal Medicine; ATTEND Internal Medicine
PROC: 5A1D70Z Performance of Urinary Filtration, Intermittent, Less than 6 Hours Per Day (ICD-10-PCS; principal; 2019-05-10)
DX: J18.1 Lobar pneumonia, unspecified organism (principal); I13.2 Hypertensive heart and chronic kidney disease with heart failure and with stage 5 chronic kidney disease, or end stage renal disease; E11.22 Type 2 diabetes mellitus with diabetic chronic kidney disease; N18.6 End stage renal disease; I50.22 Chronic systolic (congestive) heart failure; D63.1 Anemia in chronic kidney disease; I45.81 Long QT syndrome; Z86.73 Personal history of transient ischemic attack (TIA), and cerebral infarction without residual deficits; Z99.2 Dependence on renal dialysis; I25.10 Atherosclerotic heart disease of native coronary artery without angina pectoris; J98.11 Atelectasis; E78.5 Hyperlipidemia, unspecified; K44.9 Diaphragmatic hernia without obstruction or gangrene; N40.0 Benign prostatic hyperplasia without lower urinary tract symptoms; K21.9 Gastro-esophageal reflux disease without esophagitis; K29.60 Other gastritis without bleeding; K20.9 Esophagitis, unspecified; Z79.84 Long term (current) use of oral hypoglycemic drugs
CPT/HCPCS: 36415; 71045-TC-FY; 76705-TC; 76937; 80048; 80053; 82565; 82962; 83036; 83690; 83735; 84100; 84484; 84520; 85025; 85610; 85730; 86803; 86850; 86900; 86901; 87040; 87340; 87804; 87899; 93005; 93010; 97116-GP; 97161-GP; 99283-25; G0480; J0131; J0885; J1644

== ENCOUNTER 2019-05-29 19:46 | Inpatient (IN) | payer OTHER ==
--- NOTE | 2019-05-29 19:53 | PDOC ---
History of Present Illness - General Chief Complaint: Shortness of Breath Stated Complaint: SHORTNESS OF BREATH Time Seen by Provider: 05/29/19 19:53 History Source: Patient Exam Limitations: No Limitations - History of Present Illness Initial Comments: Jaxson Prater is a 59 yo M w a pmh of CHF, CAD (2 stents), ESRD (T, Th, Sat), NIDDM, HTN, HLD, and CVA who presents to the [facility] with severe SOB from the dialysis center after he just finished receiving his Friday dialysis session. The patient states he does not know what happened but he is extremely fatigued and out of breath. The patient states he has no hx of heart failure but per the EM he has been diagnosed with heart failure in the past. The patient states that walking even 20 feet causes him to be extremely short of breath. He also endorses a significant amount of leg swelling over the past 3 days. Patient denies having any chest pain, back pain, headache, blurry vision, nausea , vomiting, diaphoresis, abdominal pain, dysuria, frequency, or urgency. PCP: Dr. Eid PSH: 2 stents Social Hx: Denies smoking, drinking, or other substance abuse Allergies: Cashew nuts, NKDA Past History - Past Medical History Allergies/Adverse Reactions: Allergies Allergy/AdvReac Type Severity Reaction Status Date / Time cashew nut Allergy Verified 03/25/19 20:05 Home Medications: Ambulatory Orders Aspirin [ASA -] 81 mg PO DAILY #30 tab.chew 11/20/18 Atorvastatin Ca [Lipitor] 40 mg PO HS #30 tablet 11/20/18 Isosorbide Mononitrate [Imdur -] 30 mg PO DAILY #30 tab.sr.24h 11/20/18 Labetalol HCl [Normodyne -] 100 mg PO BID 01/23/19 Nifedipine ER [Procardia XL -] 30 mg PO DAILY 01/23/19 Glipizide [Glucotrol] 5 mg PO BID 03/19/19 Tamsulosin HCl [Flomax] 0.4 mg PO DAILY 05/10/19 Pantoprazole Sodium [Protonix -] 40 mg PO DAILY #30 tablet.ec 05/12/19 Clopidogrel Bisulfate [Plavix] 75 mg PO DAILY 05/29/19 Ergocalciferol (Vitamin D2) [Ergocal] 5,000 unit PO DAILY 05/29/19 Finasteride 5 mg PO DAILY 05/29/19 Furosemide [Lasix] 40 mg PO DAILY 05/29/19 Furosemide [Lasix] 80 mg PO BID 05/29/19 Hydralazine HCl 50 mg PO TID 05/29/19 Metolazone 5 mg PO DAILY 05/29/19 Ranitidine HCl 150 mg PO DAILY 05/29/19 Anemia: Yes Asthma: No Cancer: No Cardiac Disorders: Yes (STENT X2 year 2016) CVA: Yes COPD: No CHF: Yes Dementia: No Diabetes: Yes Dialysis: Yes (fistula rt upper chest) GI Disorders: No Disorders: Yes (renal dialysis) HTN: Yes Hypercholesterolemia: Yes Liver Disease: No Seizures: Yes (states blood sugar sugar was elevated) Thyroid Disease: No - Surgical History Cardiac Surgery: Yes (STENT X2) Orthopedic Surgery: Yes - Immunization History Immunization Up to Date: Yes - Psycho Social/Smoking Cessation Hx Smoking History: Never smoked Have you smoked in the past 12 months: No Hx Alcohol Use: No Drug/Substance Use Hx: Yes (quit, marijuana use 1990) Substance Use Type: Marijuana Hx Substance Use Treatment: No Review of Systems - Review of Systems Able to Perform ROS?: Yes Comments:: CONSTITUTIONAL: Present: Fatigue Absent: fever, no chills EYES: Absent: visual changes ENT: Absent: ear pain, no sore throat CARDIOVASCULAR: Absent: chest pain, no palpitations RESPIRATORY: Present: Cough, SOB GI: Absent: abdominal pain, no nausea, no vomiting, no constipation, no diarrhea GENITOURINARY: Absent: dysuria, no frequency, no hematuria MUSKULOSKELETAL: Absent: back pain, no arthralgia, no myalgia SKIN: Absent: rash NEURO: Absent: headache *Physical Exam - Physical Exam Comments: GENERAL: Lethargic appearing. Well-nourished. Mild distress. HEENT: Normocephalic, atraumatic. PERRL, EOM intact. CARDIOVASCULAR: Normal S1, S2. Regular rate and rhythm. PULMONARY: Clear evidence of respiratory distress. There are right sided crackles. No wheezing or rhonchi. ABDOMEN: Soft, non-distended, non-tender. EXTREMITIES: Normal ROM in all four extremities. 2+ pitting edema bilaterally SKIN: Warm, dry. NEUROLOGICAL: No focal neurological deficits. ED Treatment Course - LABORATORY CBC & Chemistry Diagram: 05/29/19 21:48 05/29/19 20:35 Medical Decision Making - Medical Decision Making Jaxson Prater is a 59 yo M w a pmh of CHF, CAD (2 stents), ESRD (T, Th, Sat), NIDDM, HTN, HLD, and CVA who presents to the [facility] with severe SOB from the dialysis center after he just finished receiving his Friday dialysis session. The patient states he does not know what happened but he is extremely fatigued and out of breath. The patient states he has no hx of heart failure but per the EM he has been diagnosed with heart failure in the past. The patient states that walking even 20 feet causes him to be extremely short of breath. He also endorses a significant amount of leg swelling over the past 3 days. Patient denies having any chest pain, back pain, headache, blurry vision, nausea , vomiting, diaphoresis, abdominal pain, dysuria, frequency, or urgency. Vital Signs Temp Pulse Resp BP Pulse Ox 98.2 F 84 20 204/116 H 95 05/29/19 20:03 05/29/19 20:44 05/29/19 20:44 05/29/19 20:44 05/29/19 20:44 DDx IBNLT: ACS/NH, Heart Failure, anemia, electrolyte/metabolic disturbance, PNA , pneumothorax, COPD Plan: Labs, CXR, EKG, lasix, Nitro, admit to telemetry for heart failure EKG: NS rate of 84, narrow complexes, normal axis, Left atrial enlargement, TWI in aVL, Anterior infarct age undetermined, QTc 472, OH 188 CXR: Increased markings in left lower lobe Labs: Elevated BNP, CKD, hypoglycemic - Will give patient a shot of D50 and food to eat. Disposition: Admit to hospital for heart failure for tachypnea and dyspnea above baseline that has persisted despite ED care Discharge - Discharge Information Problems reviewed: Yes Clinical Impression/Diagnosis: Heart failure Qualifiers: Heart failure type: unspecified Heart failure chronicity: unspecified Qualified Code(s): I50.9 - Heart failure, unspecified Condition: Stable - Admission Yes - Follow up/Referral Referrals: Waldemar Eid MD [Primary Care Provider] - - Patient Discharge Instructions - Post Discharge Activity
[2019-05-29] MEDS ORDERED: FUROSEMIDE 40 MG/4 ML INJECTABLE VIAL IVPUSH ONE (20:00)
[2019-05-29] MEDS ORDERED: NITROGLYCERIN SUBLINGUAL 1/150 0.4 MG TAB SL ONE (20:00)
[2019-05-29] MEDS ORDERED: NITROGLYCERIN SUBLINGUAL 1/150 0.4 MG TAB ONE (20:21)
[2019-05-29] MEDS ORDERED: FUROSEMIDE 40 MG/4 ML INJECTABLE VIAL ONE (20:37)
[2019-05-29 20:48] LABS: VENOUS PC02 43.5 mmHg (38-52); VENOUS PH 7.37 (7.31-7.41)
[2019-05-29 20:51] LABS: VENOUS PO2 < 49 mmHg (28-48)
[2019-05-29 21:13] LABS: ALBUMIN 3.3 g/dl (3.4-5.0); BILIRUBIN,TOTAL 0.5 mg/dL (0.2-1); CREATININE 3.6 mg/dL (0.55-1.3); POTASSIUM 4.2 mmol/L (3.5-5.1); TOT PROT 7.2 g/dl (6.4-8.2)
[2019-05-29 21:15] LABS: N-TERMINAL BNP 11306.5 pg/ml (5-125)
[2019-05-29] MEDS ORDERED: DEXTROSE 50%-WATER - 25 GM/50 ML VIAL IVPUSH ONE (21:20)
[2019-05-29] MEDS ORDERED: DEXTROSE 50%-WATER 25 GM/50 ML DISP.SYRIN ONE (21:36)
[2019-05-29 21:54] LABS: BASO % 1.1 % (0-2.0); EOS % 3.5 % (0-4.5); HEMATOCRIT 28.1 % (35.4-49); LYMPH % 12.9 % (8-40); MEAN CELL VOLUME 90.8 fl (80-96); MEAN PLT VOLUME 7.1 fl (7.5-11.1); MONO % 8.4 % (3.8-10.2); NEUT % 74.1 % (42.8-82.8); PLATELET COUNT 239 K/MM3 (134-434); RDW 13.5 % (11.9-15.9)
[2019-05-29 22:06] LABS: INR 1.27 (0.83-1.09)
[2019-05-29 22:09] LABS: ACTIVATED PTT 34.3 SECONDS (25.2-36.5)
--- NOTE | 2019-05-29 22:17 | PN ---
Teaching Attending Note Name of Resident: aCra Sifuentes ATTENDING PHYSICIAN STATEMENT I saw and evaluated the patient. I reviewed the resident's note and discussed the case with the resident. I agree with the resident's findings and plan as documented. SUBJECTIVE: Patient is a 59 year old man with a PMH of CHF, CAD (2 stents), ESRD (T, Th, Sat ), NIDDM, HTN, HLD, and CVA who presents to the ER with severe SOB from the dialysis center after he just finished receiving his Friday dialysis session. The patient states he does not know what happened but he is extremely fatigued and out of breath. The patient states he has no history of heart failure but per the EMR he has been diagnosed with heart failure in the past. The patient states that walking even 20 feet causes him to be extremely short of breath. He has had a significant amount of leg swelling over the past 3 days. Patient denies having any chest pain, back pain, headache, blurry vision, nausea, vomiting, diaphoresis, abdominal pain, dysuria, frequency, or urgency. Denies smoking, alcohol or illicit drug use. No recent travel. OBJECTIVE: Alert Vital Signs Period Temp Pulse Resp BP Sys/Lopez Pulse Ox Last 24 Hr 98.2 F 83-84 20-20 204-208/116-119 95-95 HEENT: No Jaundice, eye redness or discharge, PERRLA, EOMI. Normocephalic, atraumatic. External ears are normal and hearing is grossly intact. No nasal discharge. Neck: Supple, nontender. No palpable adenopathy or thyromegaly. +JVD Chest: Good effort. Right chest permacath. Left basilar crackles. Clear to percussion. Heart: Regular. No S3, rub or murmur Abdomen: Not distended, soft, nontender and no HSM. No rebound or guarding. Normal bowel sounds. Ext: Peripheral pulses intact. Leg edema. Skin: Warm and dry. No petechiae, rash or ecchymosis. Neuro: Alert. Oriented x3. CN 2-12 grossly intact. Sensation grossly intact in all four extremities and DTR are symmetric. Psych: Appropriate mood and affect. Good insight. Home Medications Medication Instructions Recorded Aspirin [ASA -] 81 mg PO DAILY #30 tab.chew 11/20/18 Atorvastatin Ca [Lipitor] 40 mg PO HS #30 tablet 11/20/18 Isosorbide Mononitrate [Imdur -] 30 mg PO DAILY #30 tab.sr.24h 11/20/18 Labetalol HCl [Normodyne -] 100 mg PO BID 01/23/19 Nifedipine ER [Procardia XL -] 30 mg PO DAILY 01/23/19 Glipizide [Glucotrol] 5 mg PO BID 03/19/19 Tamsulosin HCl [Flomax] 0.4 mg PO DAILY 05/10/19 Pantoprazole Sodium [Protonix -] 40 mg PO DAILY #30 tablet.ec 05/12/19 Clopidogrel Bisulfate [Plavix] 75 mg PO DAILY 05/29/19 Ergocalciferol (Vitamin D2) 5,000 unit PO DAILY 05/29/19 [Ergocal] Finasteride 5 mg PO DAILY 05/29/19 Furosemide [Lasix] 40 mg PO DAILY 05/29/19 Furosemide [Lasix] 80 mg PO BID 05/29/19 Hydralazine HCl 50 mg PO TID 05/29/19 Metolazone 5 mg PO DAILY 05/29/19 Ranitidine HCl 150 mg PO DAILY 05/29/19 Abnormal Lab Results 05/29/19 05/29/19 05/29/19 20:35 20:35 20:35 RBC Hgb Hct MPV PT with INR INR POC VBG pO2 < 49 H VBG O2 Sat (Mallorie) 67.5 L Chloride 108 H Anion Gap 5 L BUN 42.0 H Creatinine 3.6 H Random Glucose 55 L Calcium 8.0 L Alkaline Phosphatase 118 H Creatine Kinase 539 H CK-MB (CK-2) 5.6 H B-Natriuretic Peptide 85959.5 H Albumin 3.3 L 05/29/19 05/29/19 21:48 21:48 RBC 3.10 L Hgb 9.0 L Hct 28.1 L MPV 7.1 L PT with INR 15.00 H INR 1.27 H POC VBG pO2 VBG O2 Sat (Mallorie) Chloride Anion Gap BUN Creatinine Random Glucose Calcium Alkaline Phosphatase Creatine Kinase CK-MB (CK-2) B-Natriuretic Peptide Albumin ASSESSMENT AND PLAN: 1. ESRD volume overload/CHF exacerbation - Symptoms likely due to ESRD associated volume overload, superimposed on ?diastolic dysfunction. CXR shows cardiomeglay, right chest permacath and pulmonary vascular congestion. ECHO from 03/19/19 showed normal LV systolic function and LVEF of 55-60%. Got IV lasix in the ER, but will benefit from gradually increasing dialysis fluid removal. Hypocalcemia likely partly due to 2o HPT - will check PTH and phosphate. May need treatment with Vitamin D analogues. EKG shows NSR with LAE and no new ischemic changes. Will continue comprehensive care for all of patient s comorbid conditions. 2. Hypoalbuminemia - Possibly due to combined effects of malnutrition and inflammation associated with comorbid chronic conditions. Will ensure adequate dietary protein intake and also consult contact center representative. 3. DM Hypoglycemia may due to glipizide. Get HbA1c and upon discharge reduce glipizide to 2.5 mg bid. Will hold the home diabetes drugs and implement sliding scale insulin regimen. Provide comprehensive diabetes care with patient teaching and counseling about the importance of adherence to prescribed diabetes regimen, euglycemia, eye care and foot care. 4. Anemia - Likely green party due to ESRD. Will do basic anemia work up including serial stool guaiacs, reticulocyte count and iron studies. Would benefit from Procrit therapy once iron replete. 5. Hypertension - Restart suitable outpatient antihypertensive drugs when clinically appropriate. Revise regimen to ensure [id number] excellent BP control and credit support counselor patient on the injurious effects of uncontrolled hypertension. Nonpharmacologic measures to control hypertension like weight loss , salt restriction and exercise discussed. Importance of adherence to treatment regimen and attainment of normotension emphasized. 6. DVT prophylaxis - Heparin 5000u sq tid. 7. Advance directives - Full code
--- NOTE | 2019-05-29 22:36 | HP ---
CHIEF COMPLAINT: shortness of breath PCP: Dr. Eid HISTORY OF PRESENT ILLNESS: 59M w/ pmhx of CAD (x2 stents placed), ESRD (Fri/Fri), DM, HTN, HLD, CHF, CVA presents in the ED for complaints of sob after completing dialysis today. States soon after he completed his dialysis session, he started to become short of breath and was also found to be hypertensive. Because of this, he was brought directly to [facility]'s ED for further evaluation. Pt states he usually goes to dialysis on Friday and Friday, but missed his Friday session due to shortness of breath. He was told that his pre-dialysis weight today was 289 lbs , and post dialysis was 214 lbs. Admits to not taking his medications today because they were not "sorted properly". States he usually takes a water pill every day, but dosage is unknown. Of note, he was recently seen in the ED earlier this month and treated for pneumonia. Denies hoover/d, n/v, vision changes, chest pain, abd pain, urinary/bowel symptoms. Does state that he usually has b/ l leg swelling, but today is much improved than other days. During my encounter , pt is seen resting comfortably, able to answer questions in complete sentences. 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 Allergies cashew nut Allergy (Verified 03/25/19 20:05) HOME MEDICATIONS: Home Medications Medication Instructions Recorded Aspirin [ASA -] 81 mg PO DAILY #30 tab.chew 11/20/18 Atorvastatin Ca [Lipitor] 40 mg PO HS #30 tablet 11/20/18 Isosorbide Mononitrate [Imdur -] 30 mg PO DAILY #30 tab.sr.24h 11/20/18 Tamsulosin HCl [Flomax] 0.4 mg PO DAILY 05/10/19 Pantoprazole Sodium [Protonix -] 40 mg PO DAILY #30 tablet.ec 05/12/19 Clopidogrel Bisulfate [Plavix] 75 mg PO DAILY 05/29/19 Ergocalciferol (Vitamin D2) 50,000 unit PO WEEKLY 05/29/19 [Vitamin D2] Famotidine 10 mg PO DAILY 05/29/19 Glipizide 10 mg PO BID 05/29/19 Labetalol HCl [Normodyne -] 200 mg PO BID 05/29/19 Losartan Potassium 50 mg PO DAILY 05/29/19 Meclizine HCl [Antivert -] 12.5 mg PO BID 05/29/19 Nifedipine [Procardia Xl] 60 mg PO DAILY 05/29/19 REVIEW OF SYSTEMS CONSTITUTIONAL: Absent: fever, chills, diaphoresis, generalized weakness, malaise, loss of appetite, weight change HEENT: Absent: rhinorrhea, nasal congestion, throat pain, throat swelling, difficulty swallowing, mouth swelling, ear pain, eye pain, visual changes CARDIOVASCULAR: peripheral edema Absent: chest pain, syncope, palpitations, irregular heart rate, lightheadedness , RESPIRATORY: shortness of breath, dyspnea with exertion Absent: cough, orthopnea, wheezing, stridor, hemoptysis GASTROINTESTINAL: Absent: abdominal pain, abdominal distension, nausea, vomiting, diarrhea, constipation, melena, hematochezia GENITOURINARY: Absent: dysuria, frequency, urgency, hesitancy, hematuria, flank pain, genital pain MUSCULOSKELETAL: Absent: myalgia, arthralgia, joint swelling, back pain, neck pain SKIN: Absent: rash, itching, pallor HEMATOLOGIC/IMMUNOLOGIC: Absent: easy bleeding, easy bruising, lymphadenopathy, frequent infections ENDOCRINE: Absent: unexplained weight gain, unexplained weight loss, heat intolerance, cold intolerance NEUROLOGIC: Absent: headache, focal weakness or paresthesias, dizziness, unsteady gait, seizure, mental status changes, bladder or bowel incontinence PSYCHIATRIC: Absent: anxiety, depression, suicidal or homicidal ideation, hallucinations. PHYSICAL EXAMINATION Vital Signs - 24 hr 05/29/19 05/29/19 20:03 20:44 Temperature 98.2 F Pulse Rate 83 Pulse Rate [ 84 Apical] Respiratory 20 20 Rate Blood Pressure 208/119 H Blood Pressure 204/116 H [Left Arm] O2 Sat by Pulse 95 95 Oximetry (%) GENERAL: AAOx3. NAD. HEENT: AT/NC. EOMI. Moist mucus membranes. NECK: Normal range of motion, supple without lymphadenopathy, JVD, or masses. LUNGS: Fine crackles b/l. No wheezes noted. Symmetric chest rise. Speaking in complete sentences. No accessory muscle use noted. HEART: RRR. Normal S1, S2. No murmurs noted. CHEST: R dialysis catheter in place. ABDOMEN: Obese, soft, NT/ND. Normoactive BS. MUSCULOSKELETAL: Normal range of motion at all joints. No bony deformities or tenderness. No CVA tenderness. UPPER EXTREMITIES: 2+ pulses, warm, well-perfused. No cyanosis. No clubbing. No peripheral edema. LOWER EXTREMITIES: 2+ pulses, warm, well-perfused. No calf tenderness. 2+ peripheral edema noted. NEUROLOGICAL: Cranial nerves II-XII intact. Normal speech. SKIN: Warm, dry, normal turgor, no rashes or lesions noted, normal capillary refill. CBC, BMP 05/29/19 21:48 05/29/19 20:35 ASSESSMENT/PLAN: 59M w/ pmhx of CAD (x2 stents placed), ESRD (Fri/Fri), DM, HTN, HLD, CHF, CVA presents in the ED for complaints of shortness of breath. #Shortness of breath; likely 2/2 fluid overload due to ESRD -Pt underwent dialysis today with reportedly significant removal of fluid, however he states he missed last Friday's dialysis session. Pt could be fluid overloaded as a result of his non-compliance with HD schedule. Additionally, he admits to not taking his home BP meds as prescribed. These factors could attribute to his presenting symptoms and will need to be addressed with patient in order to avoid further worsening of his symptoms. -Received Lasix 40 IVP in ED. Pt was recently in discharged from hospital , however per chart review, was not discharged on any Lasix at that time. States he takes Lasix at home, but will need to verify with pharmacy in AM. Will trial on IV Lasix 40 for now as pt had urine output after given 40 in ED. -EKG showed NSR, no ST-T changes, QTc 472 -Recent echo (03/19/19): EF 55-60%, mild TR, mild aortic sclerosis, no pericardial effusion #ESRD; On HD /Fri. Nephro consulted for need of dialysis. #Anemia; likely 2/2 ESRD. Iron studies. #Hx of systolic HF; Stable. Cont home meds. #CAD; hx of stents x2. Cont home meds: ASA 81, Plavix 75, Lipitor 40 #DM; Hold all home oral DM meds. BGMs/ISS ACHS. Will need to decrease Glipizide once resumed upon discharge as pt was found to be hypoglycemic. #HTN/HLD; Pt found to be hypertensive upon arrival, likely due to medication non -compliance. Will cont home meds: Lipitor 40 HS, Isosorbide Mononitrate 30 QD, Labetolol 200 BID, Losartan 50 QD, Nifedipine 60 QD. Reassess BP. #Hx of CVA; Cont home meds: ASA 81, Plavix 75 QD #Prophylaxis DVT: SQH GI: Protonix 40 QD FEN -no IVF -recheck lytes in AM -Renal diet Dispo -admit to tele Visit type - Emergency Visit Emergency Visit: Yes ED Registration Date: 05/29/19 Care time: The patient presented to the Emergency Department on the above date and was hospitalized for further evaluation of their emergent condition. - New Patient This patient is new to me today: No - Critical Care Critical Care patient: No ATTENDING PHYSICIAN STATEMENT I saw and evaluated the patient. I reviewed the resident's note and discussed the case with the resident. I agree with the resident's findings and plan as documented. SUBJECTIVE: OBJECTIVE: ASSESSMENT AND PLAN:
[2019-05-29] MEDS ORDERED: LABETALOL HCL 100 MG TABLET (FP) ONE (22:50)
--- NOTE | 2019-05-29 23:14 | PDOC ---
Attending Attestation - Resident Resident Name: Peter Whitney - ED Attending Attestation I have performed the following: I have examined & evaluated the patient, The case was reviewed & discussed with the resident, I agree w/resident's findings & plan - HPI HPI: 05/29/19 23:12 Pt comes with SOB and severe HTN after dialysis full session today Clearly still fluid overloaded - Physicial Exam PE: 05/29/19 23:13 Agree iw resident exam Pt has edema of legs crackles in lungs afebrile A+Ox3 - Medical Decision Making 05/29/19 23:13 labs demonstrate CHF Pt will be admitted for pressure control and diuresis.
[2019-05-29] MEDS: LABETALOL HCL 200 MG TABLET (FP) PO SCH (23:15)
[2019-05-30] MEDS ORDERED: HEPARIN NA (PORCINE) 5,000 UNITS/ML 1ML VIAL ONE (06:45)
[2019-05-30] MEDS: HEPARIN NA (PORCINE) 5,000 UNITS/ML 1ML VIAL SQ SCH ×3 (06:52→21:49)
[2019-05-30] MEDS: INSULIN SLIDING SCALE (NOVOLOG) 1 VIAL SQ SCH ×4 (06:52→21:50)
[2019-05-30 07:49] LABS: BASO % 1.1 % (0-2.0); EOS % 2.9 % (0-4.5); HEMATOCRIT 26.6 % (35.4-49); HEMOGLOBIN 8.5 GM/dL (11.7-16.9); LYMPH % 16.9 % (8-40); MCH 28.9 pg (25.7-33.7); MCHC 31.9 g/dl (32.0-35.9); MEAN CELL VOLUME 90.6 fl (80-96); MONO % 8.7 % (3.8-10.2); NEUT % 70.4 % (42.8-82.8); PLATELET COUNT 229 K/MM3 (134-434); RBC 2.94 M/mm3 (4.00-5.60); RDW 13.3 % (11.9-15.9); WHITE BLOOD COUNT 5.4 K/mm3 (4.0-10.0)
[2019-05-30 08:24] LABS: ALBUMIN 2.7 g/dl (3.4-5.0); BILIRUBIN,TOTAL 0.6 mg/dL (0.2-1); BLOOD UREA NITROGEN 42.7 mg/dL (7-18); CALCIUM 7.8 mg/dL (8.5-10.1); CREATININE 4.1 mg/dL (0.55-1.3); PHOSPHOROUS 4.2 mg/dL (2.5-4.9); POTASSIUM 4.5 mmol/L (3.5-5.1); TOT PROT 6.4 g/dl (6.4-8.2)
[2019-05-30] MEDS ORDERED: FUROSEMIDE 40 MG/4 ML INJECTABLE VIAL IVPUSH SCH (10:00)
[2019-05-30] MEDS ORDERED: PT OWN MED DRAWER 7, Y5N ONE (12:51)
[2019-05-30] MEDS: TAMSULOSIN HCL 0.4 MG CAP PO SCH (13:20)
[2019-05-30] MEDS: ASPIRIN 81 MG CHEWABLE TABLETS PO SCH (13:21)
[2019-05-30] MEDS: ISOSORBIDE MONONITRATE 30 MG TAB.SR.24H (FP) PO SCH (13:21)
[2019-05-30] MEDS: LABETALOL HCL 200 MG TABLET (FP) PO SCH ×2 (13:21→21:49)
[2019-05-30] MEDS: LOSARTAN POTASSIUM 50 MG TABLET (FP) PO SCH (13:21)
[2019-05-30] MEDS: NIFEdipine E.R 60 MG TABLET (UD) PO SCH (13:22)
[2019-05-30] MEDS: PANTOPRAZOLE 40 MG TABLET (FP) PO SCH (13:22)
[2019-05-30] MEDS: CLOPIDOGREL BISULFATE 75 MG TABLET (FP) PO SCH (13:22)
--- NOTE | 2019-05-30 13:38 | EKG ---
Test Reason : Blood Pressure : / mmHG Vent. Rate : 084 BPM Atrial Rate : 084 BPM P-R Int : 188 ms QRS Dur : 078 ms QT Int : 400 ms P-R-T Axes : 030 -03 071 degrees QTc Int : 472 ms SINUS RHYTHM WITH FUSION COMPLEXES POSSIBLE LEFT ATRIAL ENLARGEMENT ANTERIOR INFARCT , AGE UNDETERMINED ABNORMAL ECG Confirmed by MD Valentine, Ross ([id number]) on 05/30/2019 1:38:30 PM Referred By: Confirmed By:Ross Grijalva MD
--- NOTE | 2019-05-30 14:57 | CON.NEP ---
Consult Consult Specialty:: Nephrology Referred by:: Arlin Sifuentes Reason for Consultation:: fluid overload/ESRD - History of Present Illness Chief Complaint: sob and HTN History of Present Illness: 59 yo M pmh of CHF, CAD (2 stents), ESRD (T and Sat), NIDDM, HTN, HLD, and CVA who presents to the [facility] er BIBEMS with c/o severe SOB from the dialysis center after he just finished receiving his Friday dialysis session. extremely fatigued and out of breath. walking even 20 feet causes him to be extremely short of breath. significant amount of leg swelling over the past 3 days. Patient denies having any chest pain, back pain, headache, blurry vision, nausea , vomiting, diaphoresis, abdominal pain, dysuria, frequency, or urgency. 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 Cardio/Vascular: Yes: CAD, CHF, HTN, Other Gastrointestinal: Yes: Other Renal/: Yes: Renal Inusuff, Hemodialysis Endocrine: Yes: Diabetes Mellitus (DM II) - Past Surgical History Past Surgical History: Yes: Stent - Alcohol/Substance Use Hx Alcohol Use: No History of Substance Use: reports: Cocaine, Marijuana - Smoking History Smoking history: Never smoked Have you smoked in the past 12 months: No - Social History Usual Living Arrangement: With Spouse ADL: Independent 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[employer], 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 [place] History of Recent Travel: No Home Medications - Allergies Allergies/Adverse Reactions: Allergies Allergy/AdvReac Type Severity Reaction Status Date / Time cashew nut Allergy Verified 03/25/19 20:05 - Home Medications Home Medications: Ambulatory Orders Aspirin [ASA -] 81 mg PO DAILY #30 tab.chew 11/20/18 Atorvastatin Ca [Lipitor] 40 mg PO HS #30 tablet 11/20/18 Isosorbide Mononitrate [Imdur -] 30 mg PO DAILY #30 tab.sr.24h 11/20/18 Tamsulosin HCl [Flomax] 0.4 mg PO DAILY 05/10/19 Pantoprazole Sodium [Protonix -] 40 mg PO DAILY #30 tablet.ec 05/12/19 Clopidogrel Bisulfate [Plavix] 75 mg PO DAILY 05/29/19 Ergocalciferol (Vitamin D2) [Vitamin D2] 50,000 unit PO WEEKLY 05/29/19 Famotidine 10 mg PO DAILY 05/29/19 Glipizide 10 mg PO BID 05/29/19 Labetalol HCl [Normodyne -] 200 mg PO BID 05/29/19 Losartan Potassium 50 mg PO DAILY 05/29/19 Meclizine HCl [Antivert -] 12.5 mg PO BID 05/29/19 Nifedipine [Procardia Xl] 60 mg PO DAILY 05/29/19 Nephrology Consult - Height Height: 6 ft 2 in - Weight Weight: 218 lb - BMI Body Mass Index (BMI): 28.0 - Lab Results CBC,BMP: CBC, BMP 05/30/19 07:25 05/30/19 07:25 Anion Gap: Anion Gap Anion Gap 6 MMOL/L (8-16) L 05/30/19 07:25 - Physical Examination Vital Signs: Vital Signs Temperature 99.2 F 05/30/19 06:42 Pulse Rate 87 05/30/19 13:20 Respiratory Rate 20 05/30/19 06:42 Blood Pressure 180/90 H 05/30/19 13:20 O2 Sat by Pulse Oximetry (%) 95 05/30/19 06:42 Edema: Yes Edema: LLE: 2+, RLE: 2+ Assessment/Plan ESRD on HD BIW friday and friday admitted post treatment yesterday with sob and high BP at time of ecal he has no sob but he has leg edema and is not sure of his dry weight IMP- Fluid overlod + High BP+ anemia Plan- consider HD tomorrow cardiac eval better BP control
--- NOTE | 2019-05-30 16:55 | PN ---
Progress Note (short form) - Note Progress Note: SUBJECTIVE: Feels well, less SOB. No CP/palpitations/lightheadedness. OBJECTIVE: Afebrile, Hemodynamically Stable. Last Vital Signs Temp Pulse Resp BP Pulse Ox 99.2 F 87 20 180/90 H 95 05/30/19 06:42 05/30/19 13:20 05/30/19 06:42 05/30/19 13:20 05/30/19 06:42 HEENT - Atraumatic, Normocephalic Heart - S1, S2, RRR Lungs - decreased air entry at bases. Abdomen - Soft, non-tender. Bowel Sounds normal. Extremities - Edema +, no calf tenderness. Laboratory Results - last 24 hr 05/29/19 05/29/19 05/29/19 20:35 20:35 20:35 WBC Corrected WBC (auto) RBC Hgb Hct MCV MCH MCHC RDW Plt Count MPV Absolute Neuts (auto) Neutrophils % Lymphocytes % Monocytes % Eosinophils % Basophils % Nucleated RBC % Platelet Estimate Platelet Comment PT with INR INR PTT (Actin FS) VBG pH 7.37 POC VBG pCO2 43.5 POC VBG pO2 < 49 H VBG HCO3 24.4 VBG O2 Sat (Mallorie) 67.5 L VBG Base Excess -0.4 Sodium 140 Potassium 4.2 Chloride 108 H Carbon Dioxide 28 Anion Gap 5 L BUN 42.0 H Creatinine 3.6 H Est GFR (CKD-EPI)AfAm 20.35 Est GFR (CKD-EPI)NonAf 17.55 POC Glucometer Random Glucose 55 L Calcium 8.0 L Phosphorus Magnesium 2.0 Iron TIBC Iron Saturation Unsaturated IBC Total Bilirubin 0.5 AST 27 ALT 52 Alkaline Phosphatase 118 H Creatine Kinase 539 H Creatine Kinase Index 1.0 CK-MB (CK-2) 5.6 H Troponin I 0.03 B-Natriuretic Peptide 01561.5 H Total Protein 7.2 Albumin 3.3 L 05/29/19 05/29/19 05/29/19 20:35 21:48 21:48 WBC Cancelled 5.0 Corrected WBC (auto) Cancelled RBC Cancelled 3.10 L Hgb Cancelled 9.0 L Hct Cancelled 28.1 L MCV Cancelled 90.8 MCH Cancelled 29.0 MCHC Cancelled 32.0 RDW Cancelled 13.5 Plt Count Cancelled 239 MPV Cancelled 7.1 L Absolute Neuts (auto) Cancelled 3.7 Neutrophils % Cancelled 74.1 D Lymphocytes % Cancelled 12.9 D Monocytes % Cancelled 8.4 Eosinophils % Cancelled 3.5 Basophils % Cancelled 1.1 Nucleated RBC % Cancelled 0 Platelet Estimate Cancelled Platelet Comment Cancelled PT with INR 15.00 H INR 1.27 H PTT (Actin FS) 34.3 VBG pH POC VBG pCO2 POC VBG pO2 VBG HCO3 VBG O2 Sat (Mallorie) VBG Base Excess Sodium Potassium Chloride Carbon Dioxide Anion Gap BUN Creatinine Est GFR (CKD-EPI)AfAm Est GFR (CKD-EPI)NonAf POC Glucometer Random Glucose Calcium Phosphorus Magnesium Iron TIBC Iron Saturation Unsaturated IBC Total Bilirubin AST ALT Alkaline Phosphatase Creatine Kinase Creatine Kinase Index CK-MB (CK-2) Troponin I B-Natriuretic Peptide Total Protein Albumin 05/29/19 05/30/19 05/30/19 22:54 06:47 07:14 WBC Corrected WBC (auto) RBC Hgb Hct MCV MCH MCHC RDW Plt Count MPV Absolute Neuts (auto) Neutrophils % Lymphocytes % Monocytes % Eosinophils % Basophils % Nucleated RBC % Platelet Estimate Platelet Comment PT with INR INR PTT (Actin FS) VBG pH POC VBG pCO2 POC VBG pO2 VBG HCO3 VBG O2 Sat (Mallorie) VBG Base Excess Sodium Potassium Chloride Carbon Dioxide Anion Gap BUN Creatinine Est GFR (CKD-EPI)AfAm Est GFR (CKD-EPI)NonAf POC Glucometer 78 52 70 Random Glucose Calcium Phosphorus Magnesium Iron TIBC Iron Saturation Unsaturated IBC Total Bilirubin AST ALT Alkaline Phosphatase Creatine Kinase Creatine Kinase Index CK-MB (CK-2) Troponin I B-Natriuretic Peptide Total Protein Albumin 05/30/19 05/30/19 07:25 07:25 WBC 5.4 Corrected WBC (auto) RBC 2.94 L Hgb 8.5 L Hct 26.6 L MCV 90.6 MCH 28.9 MCHC 31.9 L RDW 13.3 Plt Count 229 MPV 7.0 L Absolute Neuts (auto) 3.8 Neutrophils % 70.4 Lymphocytes % 16.9 D Monocytes % 8.7 Eosinophils % 2.9 Basophils % 1.1 Nucleated RBC % 0 Platelet Estimate Platelet Comment PT with INR INR PTT (Actin FS) VBG pH POC VBG pCO2 POC VBG pO2 VBG HCO3 VBG O2 Sat (Mallorie) VBG Base Excess Sodium 141 Potassium 4.5 Chloride 109 H Carbon Dioxide 26 Anion Gap 6 L BUN 42.7 H Creatinine 4.1 H Est GFR (CKD-EPI)AfAm 17.39 Est GFR (CKD-EPI)NonAf 15.00 POC Glucometer Random Glucose 71 L Calcium 7.8 L Phosphorus 4.2 Magnesium Iron 78 TIBC 224 L Iron Saturation 34 Unsaturated IBC 146 L Total Bilirubin 0.6 AST 26 ALT 47 Alkaline Phosphatase 98 Creatine Kinase Creatine Kinase Index CK-MB (CK-2) Troponin I B-Natriuretic Peptide Total Protein 6.4 Albumin 2.7 L Current Medications Generic Name Dose Route Start Last Admin Trade Name Freq PRN Reason Stop Dose Admin Aspirin 81 mg 05/30/19 10:00 05/30/19 13:21 Asa - PO 81 mg DAILY SANGEETHA Administration Atorvastatin Calcium 40 mg 05/30/19 22:00 Lipitor - PO HS SANGEETHA Clopidogrel Bisulfate 75 mg 05/30/19 10:00 05/30/19 13:22 Plavix - PO 75 mg DAILY SANGEETHA Administration Ergocalciferol 50,000 unit 06/02/19 10:00 Drisdol - PO We@1000 SANGEETHA Furosemide 40 mg 05/30/19 10:00 05/30/19 13:21 Lasix Injection - IVPUSH 40 mg DAILY SANGEETHA Administration Heparin Sodium (Porcine) 5,000 unit 05/30/19 06:00 05/30/19 15:41 Heparin - SQ 5,000 unit TID SANGEETHA Administration Insulin Aspart 1 vial 05/30/19 07:00 05/30/19 13:23 Novolog Vial Sliding Scale - SQ Not Given ACHS [facility] Protocol Isosorbide Mononitrate 30 mg 05/30/19 10:00 05/30/19 13:21 Imdur - PO 30 mg DAILY SANGEETHA Administration Labetalol HCl 200 mg 05/29/19 22:45 05/30/19 13:21 Normodyne - PO 200 mg BID SANGEETHA Administration Losartan Potassium 50 mg 05/30/19 10:00 05/30/19 13:21 Cozaar - PO 50 mg DAILY SANGEETHA Administration Nifedipine 60 mg 05/30/19 10:00 05/30/19 13:22 Procardia Xl - PO 60 mg DAILY SANGEETHA Administration Pantoprazole Sodium 40 mg 05/30/19 10:00 05/30/19 13:22 Protonix - PO 40 mg DAILY SANGEETHA Administration Tamsulosin HCl 0.4 mg 05/30/19 08:30 05/30/19 13:20 Flomax - PO 0.4 mg DAILY@0830 SANGEETHA Administration Home Medications Medication Instructions Recorded Aspirin [ASA -] 81 mg PO DAILY #30 tab.chew 11/20/18 Atorvastatin Ca [Lipitor] 40 mg PO HS #30 tablet 11/20/18 Isosorbide Mononitrate [Imdur -] 30 mg PO DAILY #30 tab.sr.24h 11/20/18 Tamsulosin HCl [Flomax] 0.4 mg PO DAILY 05/10/19 Pantoprazole Sodium [Protonix -] 40 mg PO DAILY #30 tablet.ec 05/12/19 Clopidogrel Bisulfate [Plavix] 75 mg PO DAILY 05/29/19 Ergocalciferol (Vitamin D2) 50,000 unit PO WEEKLY 05/29/19 [Vitamin D2] Famotidine 10 mg PO DAILY 05/29/19 Glipizide 10 mg PO BID 05/29/19 Labetalol HCl [Normodyne -] 200 mg PO BID 05/29/19 Losartan Potassium 50 mg PO DAILY 05/29/19 Meclizine HCl [Antivert -] 12.5 mg PO BID 05/29/19 Nifedipine [Procardia Xl] 60 mg PO DAILY 05/29/19 ASSESSMENT/PLAN: 59 year old male with history of ESRD, CAD s/p PCI/Stents, Chronic systolic heart failure, HTN, HLD, DM 2, Hx CVA, BPH, admitted imediately s/p HD with dyspnea and uncontrolled HTN. 1. Fluid Overload ?unclear whether insufficient fluid was removed on HD. CXR - congestive changes. Responding to IV Lasix, dyspnea resolved. Nephrology consulted - for possible HD tomorrow 06/01 2. ESRD on HD - possible HD tomorrow as per Neph 3. CAD, history of stents - Continue Aspirin, Plavix, Lipitor. 4. Chronic systolic heart failure - no evidence of decompensation. Echo 03/09/19 shows improvement in EF, now at 55-60%. Continue Cozaar and fluid removal via HD. 5. HTN - Continue Cozaar, Nifedipine, Labetalol, Imdur 6. HLD - Continue Lipitor 7. DM 2 - Maintain on Novolog sliding scale. 8. BPH - Continue Flomax (previously held on prior admissions due to orthostatic hypotension, will monitor) 9. History of CVA - Continue Aspirin, Plavix, Lipitor DVT Px - Heparin SQ Visit type - Emergency Visit Emergency Visit: Yes ED Registration Date: 05/29/19 Care time: The patient presented to the Emergency Department on the above date and was hospitalized for further evaluation of their emergent condition. - New Patient This patient is new to me today: Yes Date on this admission: 05/31/19 - Critical Care Critical Care patient: No - Discharge Referral Referred to [facility] No
[2019-05-30 18:42] VITALS: BMI 31.1
[2019-05-30] MEDS ORDERED: SODIUM CHLORIDE 250 ML IV PRN (20:21)
[2019-05-30] MEDS: MECLIZINE HCL 12.5 MG TABLET PO SCH (21:50)
[2019-05-30] MEDS ORDERED: ATORVASTATIN CA 40 MG TABLET (FP) PO SCH (22:00)
[2019-05-31] MEDS: INSULIN SLIDING SCALE (NOVOLOG) 1 VIAL SQ SCH ×3 (06:27→16:04)
[2019-05-31] MEDS: HEPARIN NA (PORCINE) 5,000 UNITS/ML 1ML VIAL SQ SCH ×2 (06:27→15:58)
[2019-05-31] MEDS: TAMSULOSIN HCL 0.4 MG CAP PO SCH (08:41)
--- NOTE | 2019-05-31 11:10 | PN ---
Teaching Attending Note Name of Resident: Lashae Nicole ATTENDING PHYSICIAN STATEMENT I saw and evaluated the patient. I reviewed the resident's note and discussed the case with the resident. I agree with the resident's findings and plan as documented. SUBJECTIVE: Feels well, less SOB. No CP/palpitations/lightheadedness. OBJECTIVE: Afebrile, Hemodynamically Stable. Last Vital Signs Temp Pulse Resp BP Pulse Ox 97.9 F 76 18 139/75 98 05/31/19 05:37 05/31/19 05:37 05/31/19 05:37 05/31/19 05:37 05/30/19 20:04 HEENT - Atraumatic, Normocephalic Heart - S1, S2, RRR Lungs - good air entry bilaterally Abdomen - Soft, non-tender. Bowel Sounds normal. Extremities - Edema +, no calf tenderness. Laboratory Results - last 24 hr 05/30/19 05/30/19 05/31/19 17:30 20:56 05:58 POC Glucometer 94 165 119 Current Medications Generic Name Dose Route Start Last Admin Trade Name Elizabeth PRN Reason Stop Dose Admin Aspirin 81 mg 05/30/19 10:00 05/30/19 13:21 Asa - PO 81 mg DAILY SANGEETHA Administration Atorvastatin Calcium 40 mg 05/30/19 22:00 05/30/19 21:50 Lipitor - PO 40 mg HS SANGEETHA Administration Clopidogrel Bisulfate 75 mg 05/30/19 10:00 05/30/19 13:22 Plavix - PO 75 mg DAILY SANGEETHA Administration Ergocalciferol 50,000 unit 06/02/19 10:00 Drisdol - PO We@1000 [facility] Heparin Sodium (Porcine) 5,000 unit 05/30/19 06:00 05/31/19 06:27 Heparin - SQ 5,000 unit TID SANGEETHA Administration Sodium Chloride 250 mls @ 3,000 mls/hr 05/30/19 20:21 Normal Saline - IV 05/31/19 20:21 PRN PRN Hypotension during Dialysis Insulin Aspart 1 vial 05/30/19 07:00 05/31/19 06:27 Novolog Vial Sliding Scale - SQ Not Given ACHS [facility] Protocol Isosorbide Mononitrate 30 mg 05/30/19 10:00 05/30/19 13:21 Imdur - PO 30 mg DAILY SANGEETHA Administration Labetalol HCl 200 mg 05/29/19 22:45 05/30/19 21:49 Normodyne - PO 200 mg BID SANGEETHA Administration Losartan Potassium 50 mg 05/30/19 10:00 05/30/19 13:21 Cozaar - PO 50 mg DAILY SANGEETHA Administration Meclizine HCl 12.5 mg 05/30/19 22:00 05/30/19 21:50 Antivert - PO 12.5 mg BID SANGEETHA Administration Nifedipine 60 mg 05/30/19 10:00 05/30/19 13:22 Procardia Xl - PO 60 mg DAILY SANGEETHA Administration Pantoprazole Sodium 40 mg 05/30/19 10:00 05/30/19 13:22 Protonix - PO 40 mg DAILY SANGEETHA Administration Tamsulosin HCl 0.4 mg 05/30/19 08:30 05/31/19 08:41 Flomax - PO 0.4 mg DAILY@0830 SANGEETHA Administration Home Medications Medication Instructions Recorded Aspirin [ASA -] 81 mg PO DAILY #30 tab.chew 11/20/18 Atorvastatin Ca [Lipitor] 40 mg PO HS #30 tablet 11/20/18 Isosorbide Mononitrate [Imdur -] 30 mg PO DAILY #30 tab.sr.24h 11/20/18 Tamsulosin HCl [Flomax] 0.4 mg PO DAILY 05/10/19 Pantoprazole Sodium [Protonix -] 40 mg PO DAILY #30 tablet.ec 05/12/19 Clopidogrel Bisulfate [Plavix] 75 mg PO DAILY 05/29/19 Ergocalciferol (Vitamin D2) 50,000 unit PO WEEKLY 05/29/19 [Vitamin D2] Famotidine 10 mg PO DAILY 05/29/19 Glipizide 10 mg PO BID 05/29/19 Labetalol HCl [Normodyne -] 200 mg PO BID 05/29/19 Losartan Potassium 50 mg PO DAILY 05/29/19 Meclizine HCl [Antivert -] 12.5 mg PO BID 05/29/19 Nifedipine [Procardia Xl] 60 mg PO DAILY 05/29/19 ASSESSMENT/PLAN: 59 year old male with history of ESRD, CAD s/p PCI/Stents, Chronic systolic heart failure, HTN, HLD, DM 2, Hx CVA, BPH, admitted immediately s/p HD with dyspnea and uncontrolled HTN. 1. Fluid Overload ?unclear whether insufficient fluid was removed on HD. CXR - congestive changes. Responding to IV Lasix, dyspnea resolved. Nephrology consulted - for possible HD 05/31 prior to discharge. 2. ESRD on HD - HD as per Neph 3. CAD, history of PCI/stents - Continue Aspirin, Plavix, Lipitor. 4. Chronic systolic heart failure - no evidence of decompensation. Echo 03/09/19 shows improvement in EF, now at 55-60%. Continue Cozaar and fluid removal via HD. 5. HTN - Continue Cozaar, Nifedipine, Labetalol, Imdur 6. HLD - Continue Lipitor 7. DM 2 - Maintain on Novolog sliding scale. 8. BPH - Continue Flomax (previously held on prior admissions due to orthostatic hypotension, will monitor) 9. History of CVA - Continue Aspirin, Plavix, Lipitor DVT Px - Heparin SQ
--- NOTE | 2019-05-31 12:32 | PN ---
Progress Note (short form) - Note Progress Note: Renal follow up for ESRD on HD Seen and examined at the bedside awake and alert no acute complaints sob is improved Vital Signs Temperature 97.9 F 05/31/19 05:37 Pulse Rate 76 05/31/19 05:37 Respiratory Rate 18 05/31/19 05:37 Blood Pressure 139/75 05/31/19 05:37 O2 Sat by Pulse Oximetry (%) 98 05/30/19 20:04 Intake & Output 05/28/19 05/29/19 05/30/19 05/31/19 23:59 23:59 23:59 23:59 Intake Total 240 Balance 240 Weight 98.883 kg 110.223 kg 109.089 kg NAD awake and alert neck supple RRR dec BS no rales soft NT/ND + edema CBC, BMP 05/30/19 07:25 05/30/19 07:25 Current Medications Aspirin (Asa -) 81 mg PO DAILY [facility] Last Admin: 05/30/19 13:21 Dose: 81 mg Atorvastatin Calcium (Lipitor -) 40 mg PO HS [facility] Last Admin: 05/30/19 21:50 Dose: 40 mg Clopidogrel Bisulfate (Plavix -) 75 mg PO DAILY [facility] Last Admin: 05/30/19 13:22 Dose: 75 mg Ergocalciferol (Drisdol -) 50,000 unit PO We@1000 SANGEETHA Heparin Sodium (Porcine) (Heparin -) 5,000 unit SQ TID [facility] Last Admin: 05/31/19 06:27 Dose: 5,000 unit Sodium Chloride (Normal Saline -) 250 mls @ 3,000 mls/hr IV PRN PRN PRN Reason: Hypotension during Dialysis Stop: 05/31/19 20:21 Insulin Aspart (Novolog Vial Sliding Scale -) 1 vial SQ ACHS [facility]; Protocol Last Admin: 05/31/19 06:27 Dose: Not Given Isosorbide Mononitrate (Imdur -) 30 mg PO DAILY [facility] Last Admin: 05/30/19 13:21 Dose: 30 mg Labetalol HCl (Normodyne -) 200 mg PO BID [facility] Last Admin: 05/30/19 21:49 Dose: 200 mg Losartan Potassium (Cozaar -) 50 mg PO DAILY [facility] Last Admin: 05/30/19 13:21 Dose: 50 mg Meclizine HCl (Antivert -) 12.5 mg PO BID [facility] Last Admin: 05/30/19 21:50 Dose: 12.5 mg Nifedipine (Procardia Xl -) 60 mg PO DAILY [facility] Last Admin: 05/30/19 13:22 Dose: 60 mg Pantoprazole Sodium (Protonix -) 40 mg PO DAILY [facility] Last Admin: 05/30/19 13:22 Dose: 40 mg Tamsulosin HCl (Flomax -) 0.4 mg PO DAILY@0830 [facility] Last Admin: 05/31/19 08:41 Dose: 0.4 mg 59 year old gentleman with history of ESRD on HD, hypertension , CHF presented with SOB and uncontrolled hypertension. 1. ESRD on HD 2. Volume overload 3. Hypertension 4. CHF 5. DM type 2 on insulin For 2.5 HD today with UF as tolerated stable for discharge home won current medications but would also add Torsemide 80mg Daily at home BP si better controlled to resume outpatient HD tomorrow Mansoor Quiroz DO
--- NOTE | 2019-05-31 15:28 | DS ---
Physical Exam: SUBJECTIVE: Patient seen and examined in the morning. No acute events overnight. No events on telemetry monitoring. No complaints of chest pain, no abdominal pain, no shortness of breath, no fevers, no cough. OBJECTIVE: Vital Signs Period Temp Pulse Resp BP Sys/Lopez Pulse Ox Last 24 Hr 97.9 F-98.4 F 75-87 16-18 115-179/52-103 97-98 PHYSICAL EXAM GENERAL: The patient is awake, alert, and fully oriented, in no acute distress. HEAD: Normal with no signs of trauma. LUNGS: Breath sounds equal, clear to auscultation bilaterally, no wheezes, no crackles, no accessory muscle use. HEART: Regular rate and rhythm, S1, S2 without murmur, rub or gallop. ABDOMEN: Soft, nontender, nondistended, normoactive bowel sounds. EXTREMITIES: 2+ pulses, warm, well-perfused, no edema. Dressing in place for lower extremity. No bleeding observed. NEUROLOGICAL: Cranial nerves II through XII grossly intact. SKIN: Warm, dry, normal turgor, no rashes or lesions noted. LABS Laboratory Results - last 24 hr 05/30/19 05/30/19 05/31/19 17:30 20:56 05:58 POC Glucometer 94 165 119 HOSPITAL COURSE: Date of Admission:05/29/19 Date of Discharge: 05/31/19 59 M with PMH of ESRD, CAD s/p PCI and stents, CHF, HTN, HLD, DM, CVA, BPH, who was admitted for shortness of breath after a hemodialysis session. Patient was sent over due to hypertension and shortness of breath. Nephrology was consulted upon admission and patient was treated with fuoresemide. Patient received Hemodialysis with 2.5 HD with UF on day of discharge. Patient will resume with dialysis tomorrow as he goes on Tuesdays and Saturdays. Will continue with home medications with a change of Turosemide 80 mg Daily instead of Furosemide. Imaging done this admission: Chest X-Ray: Single AP view of the chest reveals little change since the prior study of 05/12/2019. The mediastinum is not widened. The right jugular line is again noted with tip at junction of SVC and right atrium. There are some mild central congestive changes with fluid with atelectasis or infiltrate at the left base. Minutes to complete discharge: 30 Discharge Summary Problems reviewed: Yes Reason For Visit: STAGE 4 CKD/COGESTIVE HEART FAILURE Current Active Problems ESRD (end stage renal disease) (Chronic) Condition: Improved - Instructions Diet, Activity, Other Instructions: You were admitted to the hospital because you had shortness of breath after dialysis. While you were here we gave you medication to help decrease the fluids in your body. The test department helper saw you and decided that you needed dialysis today. You are stable for discharge. We are changing your water pill. Please stop taking furosemide at home. Please take: Torsemide 80mg, by mouth, daily. Please continue taking you medications at home as directed and resume your normal dialysis schedule. Please follow up with Dr. Eid within 1 week to have blood work done (CMP) . Please follow up with within 1 week. Return to the emergency department if you have any chest pain, shortness of breath, nausea, vomiting, swelling, or worsening of your symptoms. Referrals: Waldemar Eid MD [Primary Care Provider] - 1 Week Mansoor Quiroz MD [Staff Physician] - 1 Week Disposition: HOME - Home Medications Comprehensive Discharge Medication List: Ambulatory Orders Aspirin [ASA -] 81 mg PO DAILY #30 tab.chew 11/20/18 Atorvastatin Ca [Lipitor] 40 mg PO HS #30 tablet 11/20/18 Isosorbide Mononitrate [Imdur -] 30 mg PO DAILY #30 tab.sr.24h 11/20/18 Tamsulosin HCl [Flomax] 0.4 mg PO DAILY 05/10/19 Pantoprazole Sodium [Protonix -] 40 mg PO DAILY #30 tablet.ec 05/12/19 Clopidogrel Bisulfate [Plavix] 75 mg PO DAILY 05/29/19 Ergocalciferol (Vitamin D2) [Vitamin D2] 50,000 unit PO WEEKLY 05/29/19 Glipizide 10 mg PO BID 05/29/19 Labetalol HCl [Normodyne -] 200 mg PO BID 05/29/19 Losartan Potassium 50 mg PO DAILY 05/29/19 Meclizine HCl [Antivert -] 12.5 mg PO BID 05/29/19 Nifedipine [Procardia Xl] 60 mg PO DAILY 05/29/19 Hydrochlorothiazide [Hctz -] 50 mg DAILY 11/25/19 Torsemide [Demadex -] 80 mg PO DAILY #30 tablet 05/31/19 This patient is new to me today: Yes Date on this admission: 05/31/19 Emergency Visit: No Critical Care patient: No - Discharge Referral Referred to [facility] No ATTENDING PHYSICIAN STATEMENT I saw and evaluated the patient. I reviewed the resident's note and discussed the case with the resident. I agree with the resident's findings and plan as documented. SUBJECTIVE: OBJECTIVE: ASSESSMENT AND PLAN:
[2019-05-31] MEDS: ASPIRIN 81 MG CHEWABLE TABLETS PO SCH (15:57)
[2019-05-31] MEDS: NIFEdipine E.R 60 MG TABLET (UD) PO SCH (15:57)
[2019-05-31] MEDS: PANTOPRAZOLE 40 MG TABLET (FP) PO SCH (15:58)
[2019-05-31] MEDS: LABETALOL HCL 200 MG TABLET (FP) PO SCH (15:58)
[2019-05-31] MEDS: LOSARTAN POTASSIUM 50 MG TABLET (FP) PO SCH (15:58)
[2019-05-31] MEDS: MECLIZINE HCL 12.5 MG TABLET PO SCH (15:58)
[2019-05-31] MEDS: CLOPIDOGREL BISULFATE 75 MG TABLET (FP) PO SCH (15:58)
[2019-05-31] MEDS: ISOSORBIDE MONONITRATE 30 MG TAB.SR.24H (FP) PO SCH (15:58)
[2019-05-31 18:25] VITALS: BP 186/94; PULSE 87; TEMP 99.4
[2019-06-02] MEDS ORDERED: ERGOCALCIFEROL (VIT D2) 50,000 UNIT (1.25 MG) CAPSULE PO SCH (10:00)
== END 2019-05-31 18:48 | disposition home or self-care (01) | DRG 425 ==
LOC: JER 19:46 → JERBED 21:59 → J4S 05-30 17:41
PROVIDERS: ADMIT Internal Medicine
PROC: 5A1D70Z Performance of Urinary Filtration, Intermittent, Less than 6 Hours Per Day (ICD-10-PCS; principal; 2019-05-31)
DX: E87.70 Fluid overload, unspecified (principal); I13.2 Hypertensive heart and chronic kidney disease with heart failure and with stage 5 chronic kidney disease, or end stage renal disease; E11.22 Type 2 diabetes mellitus with diabetic chronic kidney disease; N18.6 End stage renal disease; E88.09 Other disorders of plasma-protein metabolism, not elsewhere classified; E11.649 Type 2 diabetes mellitus with hypoglycemia without coma; I50.22 Chronic systolic (congestive) heart failure; Z99.2 Dependence on renal dialysis; Z86.73 Personal history of transient ischemic attack (TIA), and cerebral infarction without residual deficits; I25.10 Atherosclerotic heart disease of native coronary artery without angina pectoris; D63.1 Anemia in chronic kidney disease; Z91.14 Patient's other noncompliance with medication regimen; Z91.15 Patient's noncompliance with renal dialysis; N40.0 Benign prostatic hyperplasia without lower urinary tract symptoms; Z79.84 Long term (current) use of oral hypoglycemic drugs
CPT/HCPCS: 36415; 71045-TC-FY; 80053; 82550; 82553; 82803; 82962; 83540; 83550; 83735; 83880; 84100; 84466; 84484; 85025; 85610; 85730; 93005; 93010; 99285-25; J1644

== ENCOUNTER 2019-06-22 07:55 | Inpatient (IN) | payer OTHER ==
--- NOTE | 2019-06-22 08:20 | PDOC ---
History of Present Illness - General Chief Complaint: Pain Stated Complaint: ABDOMINAL PAIN History Source: Patient - History of Present Illness Initial Comments: 06/22/19 09:06 Mr. Prater is a 59 y/o man with hx ESRD on dialysis (Friday, friday) p/w N/V for three days, transferred from dialysis after he was found to be hypertensive. He reports that three days ago he became nauseated and had intractable non bloody non bilious vomiting since then. He reports that he has been unable to tolerate po at home without vomiting. He reports that starting this morning he had x2 episodes of watery stool. He presented today for dialysis where there was concern that his BP was 200s/110s. He has not taken his home BP medications today. He denies any headaches, chest pain, shortness of breath, weakness. Past History - Past Medical History Allergies/Adverse Reactions: Allergies Allergy/AdvReac Type Severity Reaction Status Date / Time cashew nut Allergy Verified 06/22/19 08:13 Home Medications: Ambulatory Orders Aspirin [ASA -] 81 mg PO DAILY #30 tab.chew 11/20/18 Atorvastatin Ca [Lipitor] 40 mg PO HS #30 tablet 11/20/18 Isosorbide Mononitrate [Imdur -] 30 mg PO DAILY #30 tab.sr.24h 11/20/18 Tamsulosin HCl [Flomax] 0.4 mg PO DAILY 05/10/19 Pantoprazole Sodium [Protonix -] 40 mg PO DAILY #30 tablet.ec 05/12/19 Clopidogrel Bisulfate [Plavix] 75 mg PO DAILY 05/29/19 Ergocalciferol (Vitamin D2) [Vitamin D2] 50,000 unit PO WEEKLY 05/29/19 Glipizide 10 mg PO BID 05/29/19 Labetalol HCl [Normodyne -] 200 mg PO BID 05/29/19 Losartan Potassium 50 mg PO DAILY 05/29/19 Meclizine HCl [Antivert -] 12.5 mg PO BID 05/29/19 Nifedipine [Procardia Xl] 60 mg PO DAILY 05/29/19 Hydrochlorothiazide [Hctz -] 50 mg DAILY 05/31/19 Torsemide [Demadex -] 80 mg PO DAILY #30 tablet 05/31/19 Anemia: Yes Asthma: No Cancer: No Cardiac Disorders: Yes (STENT X2 year 2016) CVA: Yes COPD: No CHF: Yes Dementia: No Diabetes: Yes Dialysis: Yes (fistula rt upper chest) GI Disorders: No Disorders: Yes (renal dialysis, tues,thur,sat) HTN: Yes Hypercholesterolemia: Yes Liver Disease: No Seizures: Yes (states blood sugar sugar was elevated) Thyroid Disease: No - Surgical History Abdominal Surgery: No Appendectomy: No Cardiac Surgery: Yes (STENT X2) Cholecystectomy: No Lung Surgery: No Neurologic Surgery: No Orthopedic Surgery: Yes - Immunization History Immunization Up to Date: Yes - Psycho Social/Smoking Cessation Hx Smoking History: Never smoked Have you smoked in the past 12 months: No Information on smoking cessation initiated: No Hx Alcohol Use: No Drug/Substance Use Hx: No Substance Use Type: None Hx Substance Use Treatment: No Review of Systems - Review of Systems Able to Perform ROS?: Yes Comments:: 06/22/19 10:09 ROS: GENERAL/CONSTITUTIONAL: Weakness. No fever or chills. HEAD, EYES, EARS, NOSE AND THROAT: No change in vision. No ear pain or discharge. No sore throat. CARDIOVASCULAR: No chest pain or shortness of breath RESPIRATORY: No cough, wheezing, or hemoptysis. GASTROINTESTINAL: Nausea, vomiting, diarrhea. No constipation. GENITOURINARY: No dysuria, frequency, or change in urination. MUSCULOSKELETAL: No joint or muscle swelling or pain. No neck or back pain. SKIN: No rash NEUROLOGIC: No headache, vertigo, loss of consciousness, or change in strength/ sensation. ENDOCRINE: No increased thirst. No abnormal weight change HEMATOLOGIC/LYMPHATIC: No anemia, easy bleeding, or history of blood clots. ALLERGIC/IMMUNOLOGIC: No hives or skin allergy. *Physical Exam - Vital Signs Last Vital Signs Temp Pulse Resp BP Pulse Ox 98.8 F 85 16 210/112 H 94 L 06/22/19 08:01 06/22/19 08:01 06/22/19 08:01 06/22/19 08:01 06/22/19 08:01 - Physical Exam 06/22/19 10:09 PE: GENERAL: Fatigued appearing. Awake, alert, and fully oriented HEAD: No signs of trauma, normocephalic, atraumatic EYES: PERRLA, EOMI, sclera anicteric, conjunctiva clear ENT: Auricles normal inspection, hearing grossly normal, nares patent, oropharynx clear without exudates. Moist mucosa NECK: Normal ROM, supple, no lymphadenopathy, JVD, or masses LUNGS: No distress, speaks full sentences, clear to auscultation bilaterally HEART: Regular rate and rhythm, normal S1 and S2, no murmurs, rubs or gallops, peripheral pulses normal and equal bilaterally. ABDOMEN: Mild generalized tenderness. Soft, normoactive bowel sounds. No guarding, no rebound. No masses EXTREMITIES : Normal inspection, Normal range of motion, no edema. No clubbing or cyanosis NEUROLOGICAL: Cranial nerves II through XII grossly intact. Normal speech, normal gait, no focal sensorimotor deficits SKIN: Warm, Dry, normal turgor, no rashes or lesions noted ED Treatment Course - LABORATORY CBC & Chemistry Diagram: 06/22/19 08:50 06/22/19 08:50 Medical Decision Making - Medical Decision Making 06/22/19 10:11 59M w/hx ESRD (T/Sat HD), CAD, HTN, HLD p/w HTN at dialysis center, alongside 3 days of N/V with two watery bowel movements this morning. Plan: CBC CMP Lipase EKG CXR Cardiac profile Home dose labetalol Home dose nifedipine Pepcid 20 mg Maalox Dispo: Pending labs, reassessment of BP. If persistently HTNsive or severe electrolyte derangement, plan for admission for dialysis. 06/22/19 11:06 Repeat BP: LUE -197/108 RUE -188/94 Discharge - Discharge Information Problems reviewed: Yes Clinical Impression/Diagnosis: ESRD (end stage renal disease) Hypertension Qualifiers: Hypertension type: unspecified Qualified Code(s): I10 - Essential (primary) hypertension Condition: Stable Disposition: HOME - Admission Yes - Follow up/Referral Referrals: Waldemar Eid MD [Primary Care Provider] - - Patient Discharge Instructions - Post Discharge Activity
[2019-06-22] MEDS ORDERED: FAMOTIDINE 20 MG/50 ML IVPB 20 MG/50 ML MG IVPB ONE ×2 (08:40→08:56)
[2019-06-22] MEDS ORDERED: MAG HYDROX/AL HYDROX/SIMETH -MYLANTA- ORAL SUSPENSION PO ONE (08:40)
[2019-06-22] MEDS ORDERED: LABETALOL HCL 200 MG TABLET (FP) PO ONE (08:40)
[2019-06-22] MEDS ORDERED: NIFEdipine 10 MG CAPSULE (FP) PO ONE (08:44)
[2019-06-22] MEDS ORDERED: NIFEdipine E.R. 30 MG TABLET (FP) ONE (08:55)
[2019-06-22] MEDS ORDERED: LABETALOL HCL 100 MG TABLET (FP) ONE (08:55)
[2019-06-22] MEDS ORDERED: MAG HYDROX/AL HYDROX/SIMETH 30 ML UNIT-DOSE CUP ONE (08:55)
[2019-06-22 09:03] LABS: BASO % 0.2 % (0-2.0); EOS % 0.3 % (0-4.5); HEMATOCRIT 30.9 % (35.4-49); HEMOGLOBIN 10.1 GM/dL (11.7-16.9); LYMPH % 7.7 % (8-40); MCHC 32.9 g/dl (32.0-35.9); MEAN CELL VOLUME 88.1 fl (80-96); MEAN PLT VOLUME 7.8 fl (7.5-11.1); MONO % 4.4 % (3.8-10.2); NEUT % 87.4 % (42.8-82.8); PLATELET COUNT 309 K/MM3 (134-434); RDW 13.9 % (11.9-15.9); WHITE BLOOD COUNT 9.2 K/mm3 (4.0-10.0)
[2019-06-22 09:34] LABS: BILIRUBIN,TOTAL 0.4 mg/dL (0.2-1); BLOOD UREA NITROGEN 56.3 mg/dL (7-18); CALCIUM 7.8 mg/dL (8.5-10.1); CREATININE 5.1 mg/dL (0.55-1.3); POTASSIUM 3.7 mmol/L (3.5-5.1); TOT PROT 7.2 g/dl (6.4-8.2)
--- NOTE | 2019-06-22 10:19 | EKG ---
Test Reason : Blood Pressure : / mmHG Vent. Rate : 085 BPM Atrial Rate : 085 BPM P-R Int : 178 ms QRS Dur : 082 ms QT Int : 406 ms P-R-T Axes : 045 008 035 degrees QTc Int : 483 ms NORMAL SINUS RHYTHM POSSIBLE LEFT ATRIAL ENLARGEMENT NONSPECIFIC T WAVE ABNORMALITY PROLONGED QT ABNORMAL ECG WHEN COMPARED WITH ECG OF 29-MAY-2019 19:57, FUSION COMPLEXES ARE NO LONGER PRESENT Confirmed by Jameel Duffy MD ([id number]) on 06/22/2019 10:18:52 AM Referred By: Confirmed By:Jameel Duffy MD
[2019-06-22] MEDS ORDERED: LOSARTAN POTASSIUM 50 MG TABLET (FP) PO ONE (10:38)
[2019-06-22] MEDS ORDERED: HYDROCHLOROTHIAZIDE 50 MG TABLET PO ONE (10:39)
[2019-06-22] MEDS ORDERED: HYDROCHLOROTHIAZIDE 25 MG TABLET (FP) ONE (10:44)
[2019-06-22] MEDS ORDERED: LOSARTAN POTASSIUM 50 MG TABLET (FP) ONE (10:45)
[2019-06-22] MEDS ORDERED: ISOSORBIDE MONONITRATE 60 MG TAB.SR.24H (FP) PO ONE (10:46)
[2019-06-22] MEDS: ISOSORBIDE MONONITRATE 30 MG TAB.SR.24H (FP) PO SCH (10:49)
[2019-06-22] MEDS: TORSEMIDE 20 MG TABLET (FP) PO SCH (11:23)
--- NOTE | 2019-06-22 11:40 | HP ---
CHIEF COMPLAINT: Nausea, vomiting, Abdominal pain PCP: Dr. Keating HISTORY OF PRESENT ILLNESS: 59 y/o M with PMHx of ESRD (on HD , Last HD on Friday, see's Dr. Quiroz), CAD (s/p 2 FER in 2018 on ASA/Clopidogrel), CHF (Last EF 03/25 55-60%), CVA ( 2018), DMII, HTN, HLD presents with Nausea, Vomiting and Abdominal pain. Patient was in his usual state of health until Friday morning where he woke with sudden onset of Sharp abdominal pain accompanied by nausea and vomiting. Patient says that since onset he has been unable to tolerate PO Intake and has not consumed his home meds. He has tried Mylanta and carbonated beverages with minimal relief. Since onset has has had 6 episodes of 1/4-1/2 cupfull of NBNB Vomiting. This AM, patients abdominal pain worsened, reaching 9/10, over his midepigastrum radiating to his pelvis prompting him to alert EMS (he did not have HD Today). This is the first time this has happened to him. Denies any recent medication changes, travel or sick contacts. Denies any associated fevers, chills, chest pain, SOB, headache, diarrhea, constipation, dysuria, hematuria, hematochezia. 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[employer] [facility] Ambulation: [place] Residence: at home with Family History: Mother with DM Allergies cashew nut Allergy (Verified 06/22/19 08:13) HOME MEDICATIONS: Home Medications Medication Instructions Recorded Aspirin [ASA -] 81 mg PO DAILY #30 tab.chew 11/20/18 Atorvastatin Ca [Lipitor] 40 mg PO HS #30 tablet 11/20/18 Isosorbide Mononitrate [Imdur -] 30 mg PO DAILY #30 tab.sr.24h 11/20/18 Tamsulosin HCl [Flomax] 0.4 mg PO DAILY 05/10/19 Pantoprazole Sodium [Protonix -] 40 mg PO DAILY #30 tablet.ec 05/12/19 Clopidogrel Bisulfate [Plavix] 75 mg PO DAILY 05/29/19 Ergocalciferol (Vitamin D2) 50,000 unit PO WEEKLY 05/29/19 [Vitamin D2] Glipizide 10 mg PO BID 05/29/19 Labetalol HCl [Normodyne -] 200 mg PO BID 05/29/19 Losartan Potassium 50 mg PO DAILY 05/29/19 Meclizine HCl [Antivert -] 12.5 mg PO BID 05/29/19 Nifedipine [Procardia Xl] 60 mg PO DAILY 05/29/19 Hydrochlorothiazide [Hctz -] 50 mg DAILY 05/31/19 Torsemide [Demadex -] 80 mg PO DAILY #30 tablet 05/31/19 REVIEW OF SYSTEMS As per HPI PHYSICAL EXAMINATION Vital Signs - 24 hr 06/22/19 06/22/19 06/22/19 08:01 09:13 10:38 Temperature 98.8 F 98.0 F 98.3 F Pulse Rate 85 Pulse Rate [ 78 80 Left Apical] Respiratory 16 16 16 Rate Blood Pressure 210/112 H Blood Pressure 213/112 H 201/105 H [Left Arm] O2 Sat by Pulse 94 L 98 96 Oximetry (%) GENERAL: A&Ox3, NAD HEAD: NCAT EYES: PERRL, EOMI ENT: MMM NECK: Supple, No JVD LUNGS: CTAB, No wheezes, no crackles HEART: Regular rate and rhythm, normal S1 and S2 without murmur ABDOMEN: Soft, tender to palpation over the midline, not distended, + bowel sounds, no guarding, no rebound MUSCULOSKELETAL: FROM, No CVA tenderness. EXTREMITIES: 2+ pulses, 1+ pitting edema. NEUROLOGICAL: Cranial nerves II-XII intact. Gross sensation intact throughout. 5 /5 Muscle strength throughout. PSYCHIATRIC: Flat affect SKIN: Warm, dry Laboratory Results - last 24 hr 06/22/19 06/22/19 08:50 08:50 WBC 9.2 RBC 3.50 L Hgb 10.1 L Hct 30.9 L D MCV 88.1 MCH 29.0 MCHC 32.9 RDW 13.9 Plt Count 309 D MPV 7.8 D Absolute Neuts (auto) 8.0 Neutrophils % 87.4 H D Lymphocytes % 7.7 L D Monocytes % 4.4 Eosinophils % 0.3 D Basophils % 0.2 Nucleated RBC % 0 Sodium 143 Potassium 3.7 Chloride 107 Carbon Dioxide 26 Anion Gap 10 BUN 56.3 H Creatinine 5.1 H Est GFR (CKD-EPI)AfAm 13.35 Est GFR (CKD-EPI)NonAf 11.52 Random Glucose 165 H Calcium 7.8 L Total Bilirubin 0.4 AST 28 ALT 64 H Alkaline Phosphatase 115 Creatine Kinase 268 Creatine Kinase Index 0.9 CK-MB (CK-2) 2.6 Troponin I 0.02 Total Protein 7.2 Albumin 3.0 L Lipase 67 L ASSESSMENT/PLAN: 59 y/o M with PMHx of ESRD (on HD , Last HD on Friday, see's Dr. Quiroz), CAD (s/p 2 FER in 2018 on ASA/Clopidogrel), CHF (Last EF 03/25 55-60%), CVA ( 2018, no resiual deficit), DMII, HTN, HLD presents with Nausea, Vomiting and Abdominal pain. Patient was found to be in Hypertensive Urgency admitted to tele. #Hypertensive Urgency -Due to vomiting and abdominal pain resulting in inability to consume meds -Restart home dose Nifedipine, Labetalol, losartan, Toresmide, isosorbide mononitrate, HCTZ -Check CTA Chest and abdomen to r/o dissection -EKG NSR, Possible LAE, VR 85, QTc 483 -Tele monitoring; Will consider IV Drip if BP Remains above goal #Nausea + 6 episodes of NBNB Vomiting -Unclear etiology, possibly related to Ileus found on imaging vs PUD -Improved with mylanta and pepcid; no further vomiting -Trial PPI -Surgery (Dr. Rodríguez) Consulted #ESRD on HD () -Last session on Friday -Nephro (Dr. Quiroz) consulted, For HD Today -Renally dose all meds -Avoid nephrotoxic meds (NSAIDs) #Isolated Elevated AST -Unclear significance and etiology -Abdominal US to r/o biliary pathology #CAD (s/p 2 FER) -Continue ASA, Clopidogrel, Statin, Imdur, BB #CHF (Last EF 03/25 55-60%) -Currently not in exacerbation, Continue Home meds #CVA (2018) -Continue ASA, Clopidogrel, Statin #DMII -Hold oral hypoglycemics -ISS BGMs ACHS #HLD -Statin #FEN -PO Fluids -Replete lytes PRN -Diabetic diet #PPx -DVT: Heparin SQ -GI: PPI Dispo: Admit to Tele Visit type - Emergency Visit Emergency Visit: Yes ED Registration Date: 06/22/19 Care time: The patient presented to the Emergency Department on the above date and was hospitalized for further evaluation of their emergent condition. - New Patient This patient is new to me today: No - Critical Care Critical Care patient: No ATTENDING PHYSICIAN STATEMENT I saw and evaluated the patient. I reviewed the resident's note and discussed the case with the resident. I agree with the resident's findings and plan as documented. SUBJECTIVE: OBJECTIVE: ASSESSMENT AND PLAN:
--- NOTE | 2019-06-22 11:40 | PDOC ---
Documentation entered by Gómez Gaona SCRIBE, acting as scribe for Honey Agudelo MD. Honey Agudelo MD: This documentation has been prepared by the Jimenez lopez Nirvannie, SCRIBE, under my direction and personally reviewed by me in its entirety. I confirm that the documentation accurately reflects all work, treatment, procedures, and medical decision making performed by me. Attending Attestation - Resident Resident Name: JellyHuan - ED Attending Attestation I have performed the following: I have examined & evaluated the patient, The case was reviewed & discussed with the resident, I agree w/resident's findings & plan, Exceptions are as noted - HPI HPI: 06/22/19 10:42 Agree with resident HPI - Physicial Exam PE: 06/22/19 10:42 AGree with resident exam - Medical Decision Making 06/22/19 10:43 59-year-old male with multiple medical problems including end-stage renal disease on dialysis and gastritis presents emergency department with elevated blood pressure dialysis as well as nausea, NBNB emesis, and epigastric pain. Pt did not take home BP meds this morning prior to HD. Pt with recent admission for similar GI sxs, had endoscopy 11/2018 that showed gastritis Despite giving pt home dose BP meds, BP remained elevated. 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 Malcolm for further mgmt Case discussed in detail with admitting physician including history, physical exam and ancillary studies. Admitting physician has assumed care for the patient, will follow all pending diagnostics and will complete the evaluation and treatment.
[2019-06-22] MEDS ORDERED: SODIUM CHLORIDE 250 ML IV PRN (11:52)
[2019-06-22] MEDS ORDERED: ERGOCALCIFEROL (VIT D2) 50,000 UNIT (1.25 MG) CAPSULE PO SCH (12:30)
--- NOTE | 2019-06-22 13:18 | CONSULT ---
Consult - text type - Consultation Consultation Note: Renal consult for ESRD on HD with uncontrolled hypertension This is a 59 year old gentleman with history of ESRD on HD, CHF , CAD, DM type 2, HLD who presented from home with mid abdomianl pain and N/V x 2 days and noted to have hypertensive urgency. Seen and examined in the ER. He denies any chest pain, headache, blurry vision, palpitations. He had 1 episode of diarrhea. No blood seen in emesis or stools. Last dialysis was Friday. No fever or chills. PMHx: as above Allergies: NKDA Family Hx: NC Social Hx: No T/A/D ROS: As per HPI, all other ROS negative Home Medications Medication Instructions Recorded Aspirin [ASA -] 81 mg PO DAILY #30 tab.chew 11/20/18 Atorvastatin Ca [Lipitor] 40 mg PO HS #30 tablet 11/20/18 Isosorbide Mononitrate [Imdur -] 30 mg PO DAILY #30 tab.sr.24h 11/20/18 Tamsulosin HCl [Flomax] 0.4 mg PO DAILY 05/10/19 Pantoprazole Sodium [Protonix -] 40 mg PO DAILY #30 tablet.ec 05/12/19 Clopidogrel Bisulfate [Plavix] 75 mg PO DAILY 05/29/19 Ergocalciferol (Vitamin D2) 50,000 unit PO WEEKLY 05/29/19 [Vitamin D2] Glipizide 10 mg PO BID 05/29/19 Labetalol HCl [Normodyne -] 200 mg PO BID 05/29/19 Losartan Potassium 50 mg PO DAILY 05/29/19 Meclizine HCl [Antivert -] 12.5 mg PO BID 05/29/19 Nifedipine [Procardia Xl] 60 mg PO DAILY 05/29/19 Hydrochlorothiazide [Hctz -] 50 mg DAILY 05/31/19 Torsemide [Demadex -] 80 mg PO DAILY #30 tablet 05/31/19 Vital Signs Temperature 98.0 F 06/22/19 11:42 Pulse Rate 80 06/22/19 11:42 Respiratory Rate 16 06/22/19 11:42 Blood Pressure 197/89 H 06/22/19 11:42 O2 Sat by Pulse Oximetry (%) 98 06/22/19 11:42 Intake & Output 06/19/19 06/20/19 06/21/19 12/17/19 23:59 23:59 23:59 23:59 Weight 101.605 kg NAD awake and alert neck supple, no JVD RRR Dec BS at lung bases soft NT/ND trace LE edema CBC, BMP 06/22/19 08:50 06/22/19 08:50 Current Medications Aspirin (Asa -) 81 mg PO DAILY [facility] Atorvastatin Calcium (Lipitor -) 40 mg PO HS [facility] Clopidogrel Bisulfate (Plavix -) 75 mg PO DAILY [facility] Ergocalciferol (Drisdol -) 50,000 unit PO Tu [facility] Heparin Sodium (Porcine) (Heparin -) 5,000 unit SQ TID [facility] Hydrochlorothiazide (Hctz -) 50 mg PO DAILY [facility] Sodium Chloride (Normal Saline -) 250 mls @ 3,000 mls/hr IV PRN PRN PRN Reason: Hypotension during Dialysis Stop: 06/23/19 11:52 Insulin Aspart (Novolog Vial Sliding Scale -) 1 vial SQ ACHS [facility]; Protocol Isosorbide Mononitrate (Imdur -) 30 mg PO DAILY [facility] Last Admin: 06/22/19 10:49 Dose: 30 mg Labetalol HCl (Normodyne -) 200 mg PO BID [facility] [place] Losartan Potassium (Cozaar -) 50 mg PO DAILY [facility] Meclizine HCl (Antivert -) 12.5 mg PO BID [facility] Nifedipine (Procardia Xl -) 60 mg PO DAILY [facility] Pantoprazole Sodium (Protonix -) 40 mg PO DAILY [facility] [place] Tamsulosin HCl (Flomax -) 0.4 mg PO 0830 [facility] [place] Torsemide (Demadex -) 80 mg PO DAILY [facility] Last Admin: 06/22/19 11:23 Dose: 80 mg 59 year old gentleman with history of ESRD on HD, CHF, CAD, DM type 2, HLD who presented from home with mid abdomianl pain and N/V x 2 days and noted to have hypertensive urgency. 1. Hypertensive urgency likely due to not able to keep down oral medicatins 2. ESRR on HD 3. CHF/Fluid overload 4. Chronic anemia 5. DM type 2 CTA of the chest and Abd showed no aortic dissection oral antihypertensives given this is AM, if BP is moderated < 170/100 can maintain on oral medications alone and plan on aggressive UF with HD will arrange for HD/UF today as inpatient Can resume oral Torsemide Can titrate Losaratn to 100mg daily if needed for better BP control etiology of N/V unclear, work up as per primary team will not give RICHARD as pt BP is not controlled Low salt, renal diet Thank you Mansoor Quiroz DO
--- NOTE | 2019-06-22 13:46 | PN ---
Teaching Attending Note Name of Resident: Swati Amaya ATTENDING PHYSICIAN STATEMENT I saw and evaluated the patient. I reviewed the resident's note and discussed the case with the resident. I agree with the resident's findings and plan as documented. SUBJECTIVE: Complains of abdominal pain and nausea. No vomiting. Diarrhea yesterday - no melena, no hematochezia. No fever/chills. OBJECTIVE: Afebrile, Hemodynamicaly Stable. Last Vital Signs Temp Pulse Resp BP Pulse Ox 98.0 F 80 16 197/89 H 98 06/22/19 11:42 06/22/19 11:42 06/22/19 11:42 06/22/19 11:42 06/22/19 11:42 HEENT - Atraumatic, Normocephalic. Heart - S1, S2, RRR Lungs - Clear to auscultation Abdomen - soft, generalized tenderness, worse in epigastrum. Bowel Sounds normal. Extremities - No calf tenderness. Trace edema. Neuro - AAO x 3. Tone/Power normal. Laboratory Results - last 24 hr 06/22/19 06/22/19 08:50 08:50 WBC 9.2 RBC 3.50 L Hgb 10.1 L Hct 30.9 L D MCV 88.1 MCH 29.0 MCHC 32.9 RDW 13.9 Plt Count 309 D MPV 7.8 D Absolute Neuts (auto) 8.0 Neutrophils % 87.4 H D Lymphocytes % 7.7 L D Monocytes % 4.4 Eosinophils % 0.3 D Basophils % 0.2 Nucleated RBC % 0 Sodium 143 Potassium 3.7 Chloride 107 Carbon Dioxide 26 Anion Gap 10 BUN 56.3 H Creatinine 5.1 H Est GFR (CKD-EPI)AfAm 13.35 Est GFR (CKD-EPI)NonAf 11.52 Random Glucose 165 H Calcium 7.8 L Total Bilirubin 0.4 AST 28 ALT 64 H Alkaline Phosphatase 115 Creatine Kinase 268 Creatine Kinase Index 0.9 CK-MB (CK-2) 2.6 Troponin I 0.02 Total Protein 7.2 Albumin 3.0 L Lipase 67 L Current Medications Generic Name Dose Route Start Last Admin Trade Name Freq PRN Reason Stop Dose Admin Aspirin 81 mg 06/23/19 10:00 Asa - PO DAILY [facility] Atorvastatin Calcium 40 mg 06/22/19 22:00 Lipitor - PO HS [facility] Clopidogrel Bisulfate 75 mg 06/23/19 10:00 Plavix - PO DAILY [facility] Ergocalciferol 50,000 unit 06/22/19 12:30 Drisdol - PO Tu [facility] Heparin Sodium (Porcine) 5,000 unit 06/22/19 22:00 Heparin - SQ TID [facility] Hydrochlorothiazide 50 mg 06/23/19 10:00 Hctz - PO DAILY [facility] Sodium Chloride 250 mls @ 3,000 mls/hr 06/22/19 11:52 Normal Saline - IV 06/23/19 11:52 PRN PRN Hypotension during Dialysis Insulin Aspart 1 vial 06/22/19 16:30 Novolog Vial Sliding Scale - SQ ACHS [facility] Protocol Isosorbide Mononitrate 30 mg 06/22/19 10:45 06/22/19 10:49 Imdur - PO 30 mg DAILY [facility] Administration Labetalol HCl 200 mg 06/22/19 22:00 Normodyne - PO BID [facility] Losartan Potassium 50 mg 06/23/19 10:00 Cozaar - PO DAILY [facility] Meclizine HCl 12.5 mg 06/22/19 22:00 Antivert - PO BID [facility] Nifedipine 60 mg 06/23/19 10:00 Procardia Xl - PO DAILY [facility] Pantoprazole Sodium 40 mg 06/23/19 10:00 Protonix - PO DAILY [facility] Tamsulosin HCl 0.4 mg 06/23/19 08:30 Flomax - PO 0830 [facility] Torsemide 80 mg 06/22/19 10:45 06/22/19 11:23 Demadex - PO 80 mg DAILY [facility] Administration Home Medications Medication Instructions Recorded Aspirin [ASA -] 81 mg PO DAILY #30 tab.chew 11/20/18 Atorvastatin Ca [Lipitor] 40 mg PO HS #30 tablet 11/20/18 Isosorbide Mononitrate [Imdur -] 30 mg PO DAILY #30 tab.sr.24h 11/20/18 Tamsulosin HCl [Flomax] 0.4 mg PO DAILY 05/10/19 Pantoprazole Sodium [Protonix -] 40 mg PO DAILY #30 tablet.ec 05/12/19 Clopidogrel Bisulfate [Plavix] 75 mg PO DAILY 05/29/19 Ergocalciferol (Vitamin D2) 50,000 unit PO WEEKLY 05/29/19 [Vitamin D2] Glipizide 10 mg PO BID 05/29/19 Labetalol HCl [Normodyne -] 200 mg PO BID 05/29/19 Losartan Potassium 50 mg PO DAILY 05/29/19 Meclizine HCl [Antivert -] 12.5 mg PO BID 05/29/19 Nifedipine [Procardia Xl] 60 mg PO DAILY 05/29/19 Hydrochlorothiazide [Hctz -] 50 mg DAILY 05/31/19 Torsemide [Demadex -] 80 mg PO DAILY #30 tablet 05/31/19 ASSESSMENT AND PLAN: 59 year old male with history of ESRD (TS), CAD (s/p FER x 2 in 2018), Chronic Diastolic CHF (Last EF 03/25 55-60%), Hx CVA (2018, no resiual deficit), DM 2, HTN, HLD, BPH, presents with 2 day history of abdominal pain, with associated nausea/vomiting. No melena/hematochezia, found to have Hypertensive Urgency. 1. Hypertensive Urgency ECG - NSR, rate 85 Given Labetolol IV in ED Some improvement in BP on resuming home meds - Nifedipine, Labetalol, losartan, Toresmide, ISMN, HCTZ CTA Chest/Abdomen - no dissection Telemonitoring pending HD today 2. Non-specific abdominal pain, possible Ileus vs PUD Symptoms including abdominal pain, nausea, vomiting. Will consult Surgery for evaluation. Pain improving with antacids. Will give PPI 3. ESRD - due HD today Nephrology consulted, will arrange 4. DM 2 - Glipizide held in favor of Novolog as per sliding scale. 5. CAD s/p FER x 2. Stable, no evidence of ACS. Continue Aspirin/Plavix, BB, Statin, Imdur 6. Chronic Diastolic CHF - Fluid overloaded, R sided pleural effusion, dilated edematous bowel. No respiratory distress/compromise/decompensation. On Torsemide. HD today. 7. Hx CVA (no residual deficit) - continue antiplatelets/statin. 8. BPH - continue Flomax 9. Elevated AST - ?fatty liver vs statin. Abdominal US to exclude biliary pathology DVT Px - Heparin SQ GI Px - Protonix IV
[2019-06-22] MEDS ORDERED: PANTOPRAZOLE SODIUM 40 MG VIAL IVPUSH SCH (14:00)
[2019-06-22] MEDS: PANTOPRAZOLE SODIUM 40 MG VIAL IVPUSH SCH (20:34)
[2019-06-22] MEDS ORDERED: ATORVASTATIN CA 40 MG TABLET (FP) PO SCH (22:00)
[2019-06-22] MEDS ORDERED: HEPARIN NA (PORCINE) 5,000 UNITS/ML 1ML VIAL SQ SCH (22:00)
[2019-06-22] MEDS: MECLIZINE HCL 12.5 MG TABLET PO SCH (22:03)
[2019-06-22] MEDS: LABETALOL HCL 200 MG TABLET (FP) PO SCH (22:03)
[2019-06-22] MEDS: HEPARIN NA (PORCINE) 5,000 UNITS/ML 1ML VIAL SQ SCH (22:03)
[2019-06-22] MEDS: INSULIN SLIDING SCALE (NOVOLOG) 1 VIAL SQ SCH (22:11)
[2019-06-23 02:03] VITALS: BMI 28.6
[2019-06-23 06:37] LABS: BASO % 1.2 % (0-2.0); EOS % 2.1 % (0-4.5); HEMATOCRIT 27.7 % (35.4-49); HEMOGLOBIN 9.2 GM/dL (11.7-16.9); LYMPH % 20.5 % (8-40); MCH 29.2 pg (25.7-33.7); MCHC 33.2 g/dl (32.0-35.9); MEAN CELL VOLUME 87.9 fl (80-96); MEAN PLT VOLUME 7.4 fl (7.5-11.1); MONO % 9.3 % (3.8-10.2); NEUT % 66.9 % (42.8-82.8); PLATELET COUNT 245 K/MM3 (134-434); RBC 3.16 M/mm3 (4.00-5.60); RDW 13.4 % (11.9-15.9); WHITE BLOOD COUNT 8.2 K/mm3 (4.0-10.0)
[2019-06-23 07:04] LABS: ALBUMIN 2.7 g/dl (3.4-5.0); BILIRUBIN,TOTAL 0.7 mg/dL (0.2-1); BLOOD UREA NITROGEN 36.5 mg/dL (7-18); CALCIUM 7.8 mg/dL (8.5-10.1); CREATININE 4.6 mg/dL (0.55-1.3); MAGNESIUM 2.4 mg/dL (1.8-2.4); PHOSPHOROUS 3.6 mg/dL (2.5-4.9); POTASSIUM 3.4 mmol/L (3.5-5.1); TOT PROT 6.5 g/dl (6.4-8.2)
[2019-06-23] MEDS ORDERED: TAMSULOSIN HCL 0.4 MG CAP PO SCH (08:30)
--- NOTE | 2019-06-23 09:09 | CONSULT ---
Consult Consult Specialty:: Surgery Reason for Consultation:: abdominal pain - History of Present Illness Chief Complaint: abdominal pain History of Present Illness: 59 y/o M with PMHx of ESRD (on HD , Last HD on Friday, see's Dr. Quiroz), CAD (s/p 2 FER in 2018 on ASA/Clopidogrel), CHF (Last EF 03/25 55-60%), CVA ( 2018), DMII, HTN, HLD presents with Nausea, Vomiting and Abdominal pain. Patient was in his usual state of health until Friday morning where he woke with sudden onset of Sharp abdominal pain accompanied by nausea and vomiting. Patient says that since onset he has been unable to tolerate PO Intake and has not consumed his home meds. He has tried Mylanta and carbonated beverages with minimal relief. Since onset has has had 6 episodes of 1/4-1/2 cupfull of NBNB Vomiting. Patient's abdominal pain worsened, reaching 9/10, over his midepigastrum radiating to his pelvis prompting him to alert EMS (he did not have HD prior to admission). CTA C/A/P showed bilateral pleural effusion, ileus , and diverticulosis. Abdominal US showed mobile gallstones without cholecystitis and normal CBD. Currently tolerating clear liquids and feels hungry. Denies pain. 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[employer], 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 [place] History of Recent Travel: No Home Medications - Allergies Allergies/Adverse Reactions: Allergies Allergy/AdvReac Type Severity Reaction Status Date / Time cashew nut Allergy Verified 06/22/19 08:13 - Home Medications Home Medications: Ambulatory Orders Aspirin [ASA -] 81 mg PO DAILY #30 tab.chew 11/20/18 Atorvastatin Ca [Lipitor] 40 mg PO HS #30 tablet 11/20/18 Isosorbide Mononitrate [Imdur -] 30 mg PO DAILY #30 tab.sr.24h 11/20/18 Tamsulosin HCl [Flomax] 0.4 mg PO DAILY 05/10/19 Pantoprazole Sodium [Protonix -] 40 mg PO DAILY #30 tablet.ec 05/12/19 Clopidogrel Bisulfate [Plavix] 75 mg PO DAILY 05/29/19 Ergocalciferol (Vitamin D2) [Vitamin D2] 50,000 unit PO WEEKLY 05/29/19 Glipizide 10 mg PO BID 05/29/19 Labetalol HCl [Normodyne -] 200 mg PO BID 05/29/19 Losartan Potassium 50 mg PO DAILY 05/29/19 Meclizine HCl [Antivert -] 12.5 mg PO BID 05/29/19 Nifedipine [Procardia Xl] 60 mg PO DAILY 05/29/19 Hydrochlorothiazide [Hctz -] 50 mg DAILY 05/31/19 Torsemide [Demadex -] 80 mg PO DAILY #30 tablet 05/31/19 Review of Systems - Review of Systems Constitutional: reports: No Symptoms HENT: reports: No Symptoms Neck: reports: No Symptoms Cardiovascular: reports: No Symptoms Respiratory: reports: No Symptoms Gastrointestinal: reports: Other (mild epigastric discomfort) Musculoskeletal: reports: Muscle Weakness Physical Exam Vital Signs: Vital Signs Temperature 99 F 06/23/19 06:00 Pulse Rate 78 06/23/19 06:00 Respiratory Rate 20 06/23/19 06:00 Blood Pressure 157/80 06/23/19 06:00 O2 Sat by Pulse Oximetry (%) 98 06/22/19 20:19 Constitutional: Yes: Well Nourished Eyes: Yes: Conjunctiva Clear HENT: Yes: Normocephalic Neck: Yes: Supple Cardiovascular: Yes: Regular Rate and Rhythm Respiratory: Yes: CTA Bilaterally Gastrointestinal: Yes: Soft, Tenderness (none) ...Rectal Exam: Yes: Deferred Labs: CBC, BMP 06/23/19 06:13 06/23/19 06:13 Imaging - Results Cat Scan: Report Reviewed, Image Reviewed Ultrasound: Report Reviewed, Image Reviewed Problem List - Problems (1) Ileus Assessment/Plan: No evidence of SBO Resume diet Code(s): K56.7 - ILEUS, UNSPECIFIED (2) Cholelithiasis Assessment/Plan: Unclear if cause of pain at this time. May require intervention if epigastric/RUQ pain develops and becomes recurrent with no other identifiable cause of pain Resume diet No intervention necessary at this time Reconsult prn and may f/u as OP. Code(s): K80.20 - CALCULUS OF GALLBLADDER W/O CHOLECYSTITIS W/O OBSTRUCTION
[2019-06-23] MEDS ORDERED: POTASSIUM CHLORIDE TABS 20 MEQ TABLET.ER (FP) PO ONE (09:30)
[2019-06-23] MEDS ORDERED: CLOPIDOGREL BISULFATE 75 MG TABLET (FP) PO SCH (10:00)
[2019-06-23] MEDS ORDERED: NIFEdipine E.R 60 MG TABLET (UD) PO SCH (10:00)
[2019-06-23] MEDS ORDERED: HYDROCHLOROTHIAZIDE 50 MG TABLET PO SCH (10:00)
[2019-06-23] MEDS ORDERED: LOSARTAN POTASSIUM 50 MG TABLET (FP) PO SCH ×2 (10:00→13:50)
[2019-06-23] MEDS ORDERED: ASPIRIN 81 MG CHEWABLE TABLETS PO SCH (10:00)
[2019-06-23] MEDS ORDERED: PANTOPRAZOLE 40 MG TABLET (FP) PO SCH (10:00)
[2019-06-23] MEDS: INSULIN SLIDING SCALE (NOVOLOG) 1 VIAL SQ SCH ×2 (10:05→12:38)
[2019-06-23] MEDS ORDERED: PT OWN MED DRAWER 7, Y5N ONE (10:10)
[2019-06-23] MEDS: PANTOPRAZOLE SODIUM 40 MG VIAL IVPUSH SCH (10:11)
[2019-06-23] MEDS: ISOSORBIDE MONONITRATE 30 MG TAB.SR.24H (FP) PO SCH (10:12)
[2019-06-23] MEDS: LABETALOL HCL 200 MG TABLET (FP) PO SCH (10:12)
[2019-06-23] MEDS: MECLIZINE HCL 12.5 MG TABLET PO SCH (10:12)
[2019-06-23] MEDS: HEPARIN NA (PORCINE) 5,000 UNITS/ML 1ML VIAL SQ SCH (10:13)
[2019-06-23] MEDS: TORSEMIDE 20 MG TABLET (FP) PO SCH (10:14)
[2019-06-23] MEDS ORDERED: HYDROCHLOROTHIAZIDE 25 MG TABLET (FP) PO SCH (12:00)
--- NOTE | 2019-06-23 13:48 | PN ---
Progress Note (short form) - Note Progress Note: Renal follow up for ESRD on HD Seen and examined at the bedside awake and alert abd pain is now resolved was able to tolerate his meals no N/V has yet to have a BM since in hospital no fevers or chills Vital Signs Temperature 98.9 F 06/23/19 10:00 Pulse Rate 75 06/23/19 10:00 Respiratory Rate 18 06/23/19 10:00 Blood Pressure 132/53 L 06/23/19 10:00 O2 Sat by Pulse Oximetry (%) 98 06/23/19 09:00 Intake & Output 06/20/19 06/21/19 06/22/19 06/23/19 23:59 23:59 23:59 23:59 Intake Total 620 0 Output Total 4500 Balance -3880 0 Weight 101.106 kg NAD RRR Dec BS at lung bases soft NT/ND trace LE edema CBC, BMP 06/23/19 06:13 06/23/19 06:13 Current Medications Aspirin (Asa -) 81 mg PO DAILY [facility] Last Admin: 06/23/19 10:12 Dose: 81 mg Atorvastatin Calcium (Lipitor -) 40 mg PO HS [facility] Last Admin: 06/22/19 22:03 Dose: 40 mg Clopidogrel Bisulfate (Plavix -) 75 mg PO DAILY [facility] Last Admin: 06/23/19 10:12 Dose: 75 mg Ergocalciferol (Drisdol -) 50,000 unit PO Tu [facility] Heparin Sodium (Porcine) (Heparin -) 5,000 unit SQ BID [facility] Last Admin: 06/23/19 10:13 Dose: 5,000 unit Hydrochlorothiazide (Hctz -) 50 mg PO DAILY [facility] Last Admin: 06/23/19 12:39 Dose: 50 mg Insulin Aspart (Novolog Vial Sliding Scale -) 1 vial SQ [facility]; Protocol Last Admin: 06/23/19 12:38 Dose: Not Given Isosorbide Mononitrate (Imdur -) 30 mg PO DAILY [facility] Last Admin: 06/23/19 10:12 Dose: 30 mg Labetalol HCl (Normodyne -) 200 mg PO BID [facility] Last Admin: 06/23/19 10:12 Dose: 200 mg Losartan Potassium (Cozaar -) 50 mg PO DAILY [facility] Last Admin: 06/23/19 10:13 Dose: 50 mg Meclizine HCl (Antivert -) 12.5 mg PO BID [facility] Last Admin: 06/23/19 10:12 Dose: 12.5 mg Nifedipine (Procardia Xl -) 60 mg PO DAILY [facility] Last Admin: 06/23/19 10:13 Dose: 60 mg Pantoprazole Sodium (Protonix Iv) 40 mg IVPUSH DAILY [facility] Last Admin: 06/23/19 10:11 Dose: 40 mg Tamsulosin HCl (Flomax -) 0.4 mg PO 0830 [facility] Last Admin: 06/23/19 10:12 Dose: 0.4 mg Torsemide (Demadex -) 80 mg PO DAILY [facility] Last Admin: 06/23/19 10:14 Dose: 80 mg 59 year old gentleman with history of ESRD on HD, CHF, CAD, DM type 2, HLD who presented from home with mid abdomianl pain and N/V x 2 days and noted to have hypertensive urgency. 1. Hypertensive urgency likely due to not able to keep down oral medicatins 2. ESRR on HD 3. CHF/Fluid overload 4. Chronic anemia 5. DM type 2 no acute indication for dialysis today, next treatment planned for tomorrow Can resume oral Torsemide Can titrate Losaratn to 100mg daily if needed for better BP control etiology of N/V unclear, work up as per primary team Low salt, renal diet Thank you Mansoor Quiroz DO
[2019-06-23 14:27] VITALS: BP 137/77; PULSE 73; TEMP 98.4
--- NOTE | 2019-06-23 17:04 | DS ---
Physical Exam: SUBJECTIVE: Patient seen and examined at the bedside. Patient states that he feels better and that he tolerated dialysis well yesterday. Denied any acute chest pain, shortness of breath, abd pain, n/v/c/d, headaches, dizziness, lightheadedness, fever, chills, bleeding. Was eager to eat and go home. OBJECTIVE: Vital Signs Period Temp Pulse Resp BP Sys/Lopez Pulse Ox Last 24 Hr 98.4 F-991 F 73-83 18-20 132-160/53-82 98-98 PHYSICAL EXAM GENERAL: The patient is awake, alert, and fully oriented, in no acute distress. HEAD: Normal with no signs of trauma. EYES: PERRL, extraocular movements intact, sclera anicteric, conjunctiva clear. ENT: Oropharynx clear without exudates, moist mucous membranes. NECK: Trachea midline, full range of motion, supple. Noted catheter on R side below clavicle. LUNGS: Breath sounds equal, clear to auscultation bilaterally, no wheezes, no crackles, no accessory muscle use. HEART: Regular rate and rhythm, S1, S2 without murmur, rub. ABDOMEN: Soft, nontender, nondistended, normoactive bowel sounds, no guarding, no rebound, no masses. EXTREMITIES: 2+ pulses, warm, well-perfused, no edema. NEUROLOGICAL: Cranial nerves II through XII grossly intact. 5/5 muscle strength , bilaterally upper and lower extremities. PSYCH: Normal mood, normal affect. SKIN: Warm, dry, normal turgor, no rashes or lesions noted. LABS Laboratory Results - last 24 hr 06/22/19 06/23/19 06/23/19 21:12 06:13 06:13 WBC 8.2 RBC 3.16 L Hgb 9.2 L Hct 27.7 L MCV 87.9 MCH 29.2 MCHC 33.2 RDW 13.4 Plt Count 245 D MPV 7.4 L Absolute Neuts (auto) 5.5 Neutrophils % 66.9 D Lymphocytes % 20.5 D Monocytes % 9.3 D Eosinophils % 2.1 D Basophils % 1.2 D Nucleated RBC % 0 Sodium 141 Potassium 3.4 L Chloride 104 Carbon Dioxide 32 Anion Gap 6 L BUN 36.5 H Creatinine 4.6 H Est GFR (CKD-EPI)AfAm 15.13 Est GFR (CKD-EPI)NonAf 13.05 POC Glucometer 90 Random Glucose 98 Calcium 7.8 L Phosphorus 3.6 Magnesium 2.4 Total Bilirubin 0.7 AST 26 ALT 59 Alkaline Phosphatase 99 Total Protein 6.5 Albumin 2.7 L 06/23/19 06/23/19 06:23 12:24 WBC RBC Hgb Hct MCV MCH MCHC RDW Plt Count MPV Absolute Neuts (auto) Neutrophils % Lymphocytes % Monocytes % Eosinophils % Basophils % Nucleated RBC % Sodium Potassium Chloride Carbon Dioxide Anion Gap BUN Creatinine Est GFR (CKD-EPI)AfAm Est GFR (CKD-EPI)NonAf POC Glucometer 110 143 Random Glucose Calcium Phosphorus Magnesium Total Bilirubin AST ALT Alkaline Phosphatase Total Protein Albumin HOSPITAL COURSE: Jaxson Prater is 59 year old male with past medical history of ESRD (on HD ), CAD (s/p 2 FER in 2017 on ASA/Clopidogrel), CHF (Last EF 03/25 55-60%), CVA ( 2018, no resiual deficit), DMII, HTN, HLD admitted with hypertensive urgency and poor PO intake. Patient was restarted on home medications and blood pressure improved. CTA chest showed no aneurysm or dissection and showed moderate to large left and moderate R pleural effusion. Patient was advised to follow up with cardiology. Had abd CT performed which showed ileus, diverticulosis without diverticulitis, tiny fat containing umbilical hernia. Had abd U/S noting hepatomegaly, fatty liver infiltration vs hepatocellular disease, small gallstones without evidence of cholecystitis. Was seen by general surgery who advised no acute intervention and to follow up outpatient. Patient was advised to follow up with gastroenterology and general surgery. While hospitalized, the patient received dialysis which he tolerated well. Patient was advised to continue taking his home medications to prevent further hypertensive episodes and continue taking home Protonix. Was advised to follow up with his PCP, cardiology, gastroenterology, and general surgery. Patient was advised of the plan, was in agreement, and reiterated the plan. Patient was discharged in stable medical condition. Date of Admission:06/22/19 Date of Discharge: 06/23/19 Minutes to complete discharge: 35 Discharge Summary Problems reviewed: Yes Reason For Visit: HYPERTENSION ENDSTAGE RENAL DISEASE Condition: Stable - Instructions Diet, Activity, Other Instructions: You were admitted due to high blood pressure after you were unable to take your medications due to your nausea and vomiting. You were given medications to bring your blood pressure down and your blood pressure normalized by the day your were discharged. You had CT scan of your chest done that showed some fluid in your lungs. You are advised to follow up with your primary care doctor and your oil well driller for these findings. You had a CT scan of your abdomen which showed some outpouchings of your colon and a small umbilical hernia. You should follow up with a dyslexia teacher (stomach, liver, intestine doctor). You had bloodwork that showed elevated levels of your liver and had an ultrasound of your liver which showed fatty liver. You should follow up with a dyslexia teacher. You were given medications to improve your nausea and vomiting. You were seen by a general surgeon who did not see any need for any intervention at this time and you are to follow up with your doctors and if your symptoms get worse or recur, you may follow up for an additional evaluation. MEDICATIONS Please continue to take all of your medications as prescribed. REFERRALS Please follow up with your primary care doctor, Dr. Keating, within 1 week. Please follow up with your oil well driller, Dr. Morton, within 1 week. Please follow up with the gastroenterology, Dr. Neville within 1 week. Please follow up with general surgery Dr. Rodríguez in 2 weeks as you have a stone in your gall bladder that may require further work up and surgery. SPECIAL INSTRUCTIONS Continue receiving your dialysis as regularly scheduled. If you have any symptoms of chest pain, shortness of breath, abdominal pain, worsening vomiting, inability to eat, lightheadedness, or any other general feelings of unwellness, please call 911 or go to your nearest emergency room. Referrals: Waldemar Eid MD [Primary Care Provider] - 1 Week Corwin Neville DO [Staff Physician] - 1 Week Farhat Morton MD [Staff Physician] - 1 Week Jameson Rodríguez MD [Staff Physician] - Disposition: HOME - Home Medications Comprehensive Discharge Medication List: Ambulatory Orders Aspirin [ASA -] 81 mg PO DAILY #30 tab.chew 11/20/18 Atorvastatin Ca [Lipitor] 40 mg PO HS #30 tablet 11/20/18 Isosorbide Mononitrate [Imdur -] 30 mg PO DAILY #30 tab.sr.24h 11/20/18 Tamsulosin HCl [Flomax] 0.4 mg PO DAILY 05/10/19 Pantoprazole Sodium [Protonix -] 40 mg PO DAILY #30 tablet.ec 05/12/19 Clopidogrel Bisulfate [Plavix] 75 mg PO DAILY 05/29/19 Ergocalciferol (Vitamin D2) [Vitamin D2] 50,000 unit PO WEEKLY 05/29/19 Glipizide 10 mg PO BID 05/29/19 Labetalol HCl [Normodyne -] 200 mg PO BID 05/29/19 Losartan Potassium 50 mg PO DAILY 05/29/19 Meclizine HCl [Antivert -] 12.5 mg PO BID 05/29/19 Nifedipine [Procardia Xl] 60 mg PO DAILY 05/29/19 Hydrochlorothiazide [Hctz -] 50 mg DAILY 05/31/19 Torsemide [Demadex -] 80 mg PO DAILY #30 tablet 05/31/19 Midodrine HCl 7.5 mg PO DAILY 06/23/19 Problem List - Problems (1) Anemia Code(s): D64.9 - ANEMIA, UNSPECIFIED Qualifiers: Anemia type: unspecified type Qualified Code(s): D64.9 - Anemia, unspecified (2) CAD (coronary artery disease) Code(s): I25.10 - ATHSCL HEART DISEASE OF [place] CORONARY ARTERY W/O ANG PCTRS Qualifiers: Coronary Disease-Associated Artery/Lesion type: unspecified vessel or lesion type Associated angina: angina presence unspecified (3) CHF (congestive heart failure) Code(s): I50.9 - HEART FAILURE, UNSPECIFIED Qualifiers: Heart failure type: systolic Heart failure chronicity: acute on chronic Qualified Code(s): I50.23 - Acute on chronic systolic (congestive) heart failure (4) CKD (chronic kidney disease) stage 4, GFR 15-29 ml/min Code(s): N18.4 - CHRONIC KIDNEY DISEASE, STAGE 4 (SEVERE) (5) Cholelithiasis Code(s): K80.20 - CALCULUS OF GALLBLADDER W/O CHOLECYSTITIS W/O OBSTRUCTION (6) Diabetic ulcer of left foot Code(s): E11.621 - TYPE 2 DIABETES MELLITUS WITH FOOT ULCER; L97.529 - NON- PRESSURE CHRONIC ULCER OTH PRT LEFT FOOT W UNSP SEVERITY (7) ESRD (end stage renal disease) Code(s): N18.6 - END STAGE RENAL DISEASE (8) Hypertension Code(s): I10 - ESSENTIAL (PRIMARY) HYPERTENSION Qualifiers: Hypertension type: unspecified Qualified Code(s): I10 - Essential (primary ) hypertension (9) Idiopathic chronic venous hypertension of both lower extremities with ulcer and inflammation Code(s): I87.333 - CHRONIC VENOUS HTN W ULCER AND INFLAM OF BILATERAL LOW EXTRM ; L97.919 - NON-PRS CHRONIC ULC UNSP PRT OF R LOW LEG W UNSP SEVERITY; L97.929 - NON-PRS CHRONIC ULC UNSP PRT OF L LOW LEG W UNSP SEVERITY (10) Insulin dependent diabetes mellitus Code(s): E11.9 - TYPE 2 DIABETES MELLITUS WITHOUT COMPLICATIONS; Z79.4 - DIRECTOR SANITATION BUREAU (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 OF INSULIN (11) PAD (peripheral artery disease) Code(s): I73.9 - PERIPHERAL VASCULAR DISEASE, UNSPECIFIED (12) Type 2 diabetes mellitus with diabetic neuropathy, unspecified Code(s): E11.40 - TYPE 2 DIABETES MELLITUS WITH DIABETIC NEUROPATHY, UNSP (13) Ileus Code(s): K56.7 - ILEUS, UNSPECIFIED This patient is new to me today: Yes Date on this admission: 06/23/19 Emergency Visit: Yes ED Registration Date: 06/22/19 Care time: The patient presented to the Emergency Department on the above date and was hospitalized for further evaluation of their emergent condition. Critical Care patient: No - Discharge Referral Referred to [facility] Yes Physician Referral: Waldemar Keating MD ([facility]), Vincent Neville DO ( GI)
--- NOTE | 2019-06-23 17:46 | PN ---
Teaching Attending Note Name of Resident: Marylu Gonzalez ATTENDING PHYSICIAN STATEMENT I saw and evaluated the patient. I reviewed the resident's note and discussed the case with the resident. I agree with the resident's findings and plan as documented. SUBJECTIVE: No further abdominal pain/nausea/vomiting. No more diarrhea - no melena, no hematochezia. No fever/chills. OBJECTIVE: Afebrile, Hemodynamicaly Stable. Last Vital Signs Temp Pulse Resp BP Pulse Ox 98.4 F 73 18 137/77 98 06/23/19 14:00 06/23/19 14:00 06/23/19 10:00 06/23/19 14:00 06/23/19 09:00 Heart - S1, S2, RRR Lungs - Clear to auscultation Abdomen - soft, generalized tenderness, worse in epigastrum. Bowel Sounds normal. Extremities - No calf tenderness. Trace edema. Neuro - AAO x 3. Tone/Power normal. Laboratory Results - last 24 hr 06/22/19 06/23/19 06/23/19 21:12 06:13 06:13 WBC 8.2 RBC 3.16 L Hgb 9.2 L Hct 27.7 L MCV 87.9 MCH 29.2 MCHC 33.2 RDW 13.4 Plt Count 245 D MPV 7.4 L Absolute Neuts (auto) 5.5 Neutrophils % 66.9 D Lymphocytes % 20.5 D Monocytes % 9.3 D Eosinophils % 2.1 D Basophils % 1.2 D Nucleated RBC % 0 Sodium 141 Potassium 3.4 L Chloride 104 Carbon Dioxide 32 Anion Gap 6 L BUN 36.5 H Creatinine 4.6 H Est GFR (CKD-EPI)AfAm 15.13 Est GFR (CKD-EPI)NonAf 13.05 POC Glucometer 90 Random Glucose 98 Calcium 7.8 L Phosphorus 3.6 Magnesium 2.4 Total Bilirubin 0.7 AST 26 ALT 59 Alkaline Phosphatase 99 Total Protein 6.5 Albumin 2.7 L 06/23/19 06/23/19 06:23 12:24 WBC RBC Hgb Hct MCV MCH MCHC RDW Plt Count MPV Absolute Neuts (auto) Neutrophils % Lymphocytes % Monocytes % Eosinophils % Basophils % Nucleated RBC % Sodium Potassium Chloride Carbon Dioxide Anion Gap BUN Creatinine Est GFR (CKD-EPI)AfAm Est GFR (CKD-EPI)NonAf POC Glucometer 110 143 Random Glucose Calcium Phosphorus Magnesium Total Bilirubin AST ALT Alkaline Phosphatase Total Protein Albumin Discharge Medications Medication Instructions Recorded Aspirin [ASA -] 81 mg PO DAILY #30 tab.chew 11/20/18 Atorvastatin Ca [Lipitor] 40 mg PO HS #30 tablet 11/20/18 Isosorbide Mononitrate [Imdur -] 30 mg PO DAILY #30 tab.sr.24h 11/20/18 Tamsulosin HCl [Flomax] 0.4 mg PO DAILY 05/10/19 Pantoprazole Sodium [Protonix -] 40 mg PO DAILY #30 tablet.ec 05/12/19 Clopidogrel Bisulfate [Plavix] 75 mg PO DAILY 05/29/19 Ergocalciferol (Vitamin D2) 50,000 unit PO WEEKLY 05/29/19 [Vitamin D2] Glipizide 10 mg PO BID 05/29/19 Labetalol HCl [Normodyne -] 200 mg PO BID 05/29/19 Losartan Potassium 50 mg PO DAILY 05/29/19 Meclizine HCl [Antivert -] 12.5 mg PO BID 05/29/19 Nifedipine [Procardia Xl] 60 mg PO DAILY 05/29/19 Hydrochlorothiazide [Hctz -] 50 mg DAILY 05/31/19 Torsemide [Demadex -] 80 mg PO DAILY #30 tablet 05/31/19 Midodrine HCl 7.5 mg PO DAILY 06/23/19 ASSESSMENT AND PLAN: 59 year old male with history of ESRD (TS), CAD (s/p FER x 2 in 2018), Chronic Diastolic CHF (Last EF 03/25 55-60%), Hx CVA (2018, no resiual deficit), DM 2, HTN, HLD, BPH, presents with 2 day history of abdominal pain, with associated nausea/vomiting. No melena/hematochezia, found to have Hypertensive Urgency. 1. Hypertensive Urgency s/p HD yesterday ECG - NSR, rate 85 Improvement in BP on resuming home meds - Nifedipine, Labetalol, losartan, Toresmide, ISMN, HCTZ CTA Chest/Abdomen - no dissection Medically stable for discharge with Nephrology/HD follow up. 2. Non-specific abdominal pain, likely GERD - resolved with PPI. Symptoms including abdominal pain, nausea, vomiting resolved. Abdo US - Hepatomegaly/fatty liver. Small GS in GB - no signs of cholecystitis. Evaluated by surgery - recommend out-patient follow up. Pain improving with antacids - tolerating oral intake without symptoms - discharged on PPI. 3. ESRD - s/p HD 06/22/19 - continue out-patient schedule. 4. DM 2 - Glipizide held in favor of Novolog as per sliding scale. 5. CAD s/p FER x 2. Stable, no evidence of ACS. Continue Aspirin/Plavix, BB, Statin, Imdur 6. Chronic Diastolic CHF - Fluid overloaded, R sided pleural effusion, dilated edematous bowel. No respiratory distress/compromise/decompensation. On Torsemide. HDas scheduled. 7. Hx CVA (no residual deficit) - continue antiplatelets/statin. 8. BPH - continue Flomax 9. Elevated AST - ?fatty liver vs statin. Abdominal US to exclude biliary pathology Medically optimized for discharge.
== END 2019-06-23 16:16 | disposition home or self-care (01) | DRG 194 ==
LOC: JER 07:55 → JERBED 09:55 → J4W 18:11
PROC: 5A1D70Z Performance of Urinary Filtration, Intermittent, Less than 6 Hours Per Day (ICD-10-PCS; principal; 2019-06-22)
DX: I13.2 Hypertensive heart and chronic kidney disease with heart failure and with stage 5 chronic kidney disease, or end stage renal disease (principal); E11.22 Type 2 diabetes mellitus with diabetic chronic kidney disease; N18.6 End stage renal disease; I50.32 Chronic diastolic (congestive) heart failure; K56.7 Ileus, unspecified; I16.0 Hypertensive urgency; Z99.2 Dependence on renal dialysis; Z79.84 Long term (current) use of oral hypoglycemic drugs; E78.5 Hyperlipidemia, unspecified; Z86.73 Personal history of transient ischemic attack (TIA), and cerebral infarction without residual deficits; I25.10 Atherosclerotic heart disease of native coronary artery without angina pectoris; R11.2 Nausea with vomiting, unspecified; D64.9 Anemia, unspecified; N40.0 Benign prostatic hyperplasia without lower urinary tract symptoms; K80.20 Calculus of gallbladder without cholecystitis without obstruction
CPT/HCPCS: 36415; 71045-TC-FY; 71275-TC; 74174-TC; 76705-TC; 80053; 82550; 82553; 82962; 83690; 83735; 84100; 84484; 85025; 86803; 87340; 93005; 93010; 99283-25; J1644

== ENCOUNTER 2019-07-05 19:10 | Emergency (ER) | payer OTHER ==
[2019-07-05 19:33] VITALS: BMI 34.0
--- NOTE | 2019-07-05 19:56 | PDOC ---
Attending Attestation - Resident Resident Name: Anupama Ghosh - ED Attending Attestation I have performed the following: I have examined & evaluated the patient, The case was reviewed & discussed with the resident, I agree w/resident's findings & plan - HPI HPI: 07/05/19 20:36 see resident hpi - Physicial Exam PE: 07/05/19 20:36 agree with resident exam - Medical Decision Making 07/05/19 20:36 59-year-old male status post dialysis with hypertension Patient has no complaints He is currently eating a sandwich comfortably in the emergency department Pressure has now decreased on its own Will check labs and EKG with plans for DC home
--- NOTE | 2019-07-05 20:00 | PDOC ---
History of Present Illness - General Chief Complaint: Blood Pressure Problem Stated Complaint: HYPERTENSION Time Seen by Provider: 07/05/19 19:52 - History of Present Illness Initial Comments: Min Prater is a 59yo man with a PMH of ESRD, CAD (s/p 2 FER in 2018 on ASA/ Clopidogrel), CHF (Last EF 03/25 55-60%), CVA (2018), DM2, HTN, HLD who presents from dialysis with hypertension, fever, and productive cough. He reports that he was told at dialysis that his temperature was 100.5, and he endorses chills at home. He reports malaise, cough, headache, body aches, and fatigue for several days at home, but he has not taken any medication at home nor seen his regular doctor. He denies any sore throat, chest pain, difficulty breathing, nausea/vomiting, change in bowel habits, dysuria, or known sick contacts. Mr Prater states that he took all of his regular BP meds today without any difficulty; he notes that he has had very high blood pressure in the past as well. Past History - Past Medical History Allergies/Adverse Reactions: Allergies Allergy/AdvReac Type Severity Reaction Status Date / Time cashew nut Allergy Verified 07/05/19 19:32 Home Medications: Ambulatory Orders Aspirin [ASA -] 81 mg PO DAILY #30 tab.chew 11/20/18 Atorvastatin Ca [Lipitor] 40 mg PO HS #30 tablet 11/20/18 Isosorbide Mononitrate [Imdur -] 30 mg PO DAILY #30 tab.sr.24h 11/20/18 Tamsulosin HCl [Flomax] 0.4 mg PO DAILY 05/10/19 Pantoprazole Sodium [Protonix -] 40 mg PO DAILY #30 tablet.ec 05/12/19 Clopidogrel Bisulfate [Plavix] 75 mg PO DAILY 05/29/19 Ergocalciferol (Vitamin D2) [Vitamin D2] 50,000 unit PO WEEKLY 05/29/19 Glipizide 10 mg PO BID 05/29/19 Labetalol HCl [Normodyne -] 200 mg PO BID 05/29/19 Losartan Potassium 50 mg PO DAILY 05/29/19 Meclizine HCl [Antivert -] 12.5 mg PO BID 05/29/19 Nifedipine [Procardia Xl] 60 mg PO DAILY 05/29/19 Hydrochlorothiazide [Hctz -] 50 mg DAILY 05/31/19 Torsemide [Demadex -] 80 mg PO DAILY #30 tablet 05/31/19 Midodrine HCl 7.5 mg PO DAILY 06/23/19 Anemia: Yes Asthma: No Cancer: No Cardiac Disorders: Yes (STENT X2 year 2017) CVA: Yes COPD: No CHF: Yes Dementia: No Diabetes: Yes Dialysis: Yes (fistula rt upper chest) GI Disorders: No Disorders: Yes (renal dialysis, tues,thur,sat with Rt chest permacath) HTN: Yes Hypercholesterolemia: Yes Liver Disease: No Seizures: Yes (states blood sugar sugar was elevated) Thyroid Disease: No - Surgical History Abdominal Surgery: No Appendectomy: No Cardiac Surgery: Yes (STENT X2) Cholecystectomy: No Lung Surgery: No Neurologic Surgery: No Orthopedic Surgery: Yes - Immunization History Immunization Up to Date: Yes - Psycho Social/Smoking Cessation Hx Smoking History: Never smoked Have you smoked in the past 12 months: No Hx Alcohol Use: No Drug/Substance Use Hx: No Substance Use Type: None Hx Substance Use Treatment: No Review of Systems - Review of Systems Comments:: General: + fevers, + chills, no weight or appetite change, + malaise HEENT: No changes in vision, no changes in hearing, no congestion, no sore throat CV: No chest pain, no palpitations, no LE edema Pulm: No SOB, + cough, no wheezing GI: No nausea or vomiting, no change in bowel habits, no melena : No frequency, no urgency, no dysuria. +ESRD Musc: No back pain, no joint swelling, no recent injury Skin: No rash, no lesions, no erythema Endo: No excessive thirst, no heat/cold intolerance Heme: No unusual bruising or bleeding, no swollen glands Neuro: No syncope, no numbness/tingling, no focal weakness Vasc: No claudication Psych: No recent change in mood, no SI or HI *Physical Exam - Vital Signs Last Vital Signs Temp Pulse Resp BP Pulse Ox 97.7 F 86 20 201/95 H 97 07/05/19 19:15 07/05/19 19:15 07/05/19 19:15 07/05/19 19:15 07/05/19 19:15 - Physical Exam General: Comfortable, no acute distress HEENT: PERRL, EOMI, MMM, voice normal, normal neck ROM Cards: RRR, no murmur appreciated. Pulm: Comfortable on room air, clear to auscultation bilaterally. Productive cough noted. Abd: Soft, nontender, nondistended : No CVA tenderness Ext: Atraumatic. No LE edema. ROM intact. WWP Skin: Normal color, no rashes or lesions. Dialysis port on R upper chest clean, no surrounding erythema or drainage, clean dressing in place Neuro: A&Ox3, CN grossly intact, normal speech, motor/sensory grossly intact and symmetric Psych: Mood appropriate to situation ED Treatment Course - LABORATORY CBC & Chemistry Diagram: 07/05/19 20:47 07/05/19 20:47 Medical Decision Making - Medical Decision Making 07/05/19 19:52 Min Prater is a 59yo man with a PMH of ESRD, CAD (s/p 2 FER in 2018 on ASA/ Clopidogrel), CHF (Last EF 03/25 55-60%), CVA (2018), DM2, HTN, HLD who presents from dialysis with hypertension to SBP over 200, fever to 100.5, and productive cough. He additionally endorses headache, body aches, fatigue, and malaise for several days. - Ddx includes viral illness, influenza, pneumonia. No s/s of infection related to dialysis catheter, no urinary symptoms suggesting UTI - Given numerous comorbidities, cannot rule out complication of underlying medical problem - Markedly hypertensive to SBP in the 200's, urgency v emergency, will evaluate for end-organ effects. Pt reports taking regular meds today, will recheck prior to giving additional meds - CBC, CMP, trop, flu, UA, UCx - Acetaminophen for JONES 07/05/19 21:41 - Labs reviewed, unremarkable - Flu negative - BP significantly improved, now 160's systolic - Needs to get CXR but will most likely d/c home 07/05/19 22:11 - CXR without any concerning findings. Will discharge home Discussed with Dr Elisabet Ghosh PGY2 Discharge - Discharge Information Problems reviewed: Yes Clinical Impression/Diagnosis: Flu-like symptoms Condition: Stable Disposition: HOME - Admission No - Follow up/Referral Referrals: Waldemar Eid MD [Primary Care Provider] - - Patient Discharge Instructions Patient Printed Discharge Instructions: DI for Viral Upper Respiratory Infection -- Adult Additional Instructions: Discharge Instructions: You were seen in the emergency department for cough, headache, and fever. You had a flu test sent that was negative. Your symptoms are most likely caused by a viral infection such as the common cold. You should feel better within a week without any additional treatment. Home Care and Follow Up: - Make sure you are drinking plenty of fluids while you are sick. Increase your normal fluid intake. It is OK if you do not feel like eating as long as you are staying well hydrated - You may use medications such as acetaminophen (Tylenol) 650-1000mg or ibuprofen (Advil, Motrin) 400-600mg every 6 hours as needed for pain or fever over 101F - Consider placing a humidifier in your room overnight to help relieve congestion and reduce drying of your nose and mouth. - Use throat lozenges (cough drops) for sore throat or cough - If you use additional cold medications, make sure they do not contain medicines you are already taking such as acetaminophen or ibuprofen - You should feel better within a week, though cough can sometimes last longer. If you are not feeling better in a week, follow up with your primary doctor. - Seek immediate care if you have worsening symptoms, you are unable to stay hydrated, you develop high fevers over 104F that do not come down with medication, or you have any other medical emergency. - Post Discharge Activity
[2019-07-05] MEDS ORDERED: ACETAMINOPHEN 325 MG TABLET (FP) PO ONE (20:23)
[2019-07-05] MEDS ORDERED: ACETAMINOPHEN 325 MG TABLET (FP) ONE (20:35)
[2019-07-05 21:01] LABS: BASO % 0.5 % (0-2.0); EOS % 1.9 % (0-4.5); HEMATOCRIT 29.3 % (35.4-49); HEMOGLOBIN 9.4 GM/dL (11.7-16.9); LYMPH % 11.1 % (8-40); MCH 28.4 pg (25.7-33.7); MCHC 32.1 g/dl (32.0-35.9); MEAN CELL VOLUME 88.7 fl (80-96); MEAN PLT VOLUME 6.9 fl (7.5-11.1); MONO % 8.3 % (3.8-10.2); NEUT % 78.2 % (42.8-82.8); PLATELET COUNT 262 K/MM3 (134-434); RDW 13.3 % (11.9-15.9)
[2019-07-05 21:27] LABS: BILIRUBIN,TOTAL 0.4 mg/dL (0.2-1); BLOOD UREA NITROGEN 27.7 mg/dL (7-18); CALCIUM 8.5 mg/dL (8.5-10.1); CREATININE 2.9 mg/dL (0.55-1.3); POTASSIUM 3.7 mmol/L (3.5-5.1); TOT PROT 7.2 g/dl (6.4-8.2)
[2019-07-05 23:18] VITALS: BP 174/96; PULSE 81; TEMP 98.3
--- NOTE | 2019-07-06 10:27 | EKG ---
Test Reason : Blood Pressure : / mmHG Vent. Rate : 082 BPM Atrial Rate : 082 BPM P-R Int : 186 ms QRS Dur : 078 ms QT Int : 410 ms P-R-T Axes : 027 -08 086 degrees QTc Int : 479 ms NORMAL SINUS RHYTHM POSSIBLE LEFT ATRIAL ENLARGEMENT INFERIOR INFARCT , AGE UNDETERMINED ABNORMAL ECG WHEN COMPARED WITH ECG OF 22-JUN-2019 08:57, INFERIOR INFARCT IS NOW PRESENT Confirmed by MD Valentine, Ross ([id number]) on 07/06/2019 10:27:24 AM Referred By: Confirmed By:Ross Grijalva MD
== END 2019-07-05 23:21 | disposition home or self-care (01) ==
LOC: JER 19:10
DX: J11.1 Influenza due to unidentified influenza virus with other respiratory manifestations (principal); I13.2 Hypertensive heart and chronic kidney disease with heart failure and with stage 5 chronic kidney disease, or end stage renal disease; E11.22 Type 2 diabetes mellitus with diabetic chronic kidney disease; N18.6 End stage renal disease; I50.89 Other heart failure; N17.8 Other acute kidney failure; Z99.2 Dependence on renal dialysis; Z79.84 Long term (current) use of oral hypoglycemic drugs; Z95.5 Presence of coronary angioplasty implant and graft; E78.5 Hyperlipidemia, unspecified; Z86.73 Personal history of transient ischemic attack (TIA), and cerebral infarction without residual deficits; Z79.82 Long term (current) use of aspirin; Z79.02 Long term (current) use of antithrombotics/antiplatelets
CPT/HCPCS: 36415; 71046-TC-FY; 80053; 82550; 82553; 84484; 85025; 87804; 93005; 93010; 99284-25

== ENCOUNTER 2019-08-17 14:54 | Inpatient (IN) | payer OTHER ==
[2019-08-17] MEDS ORDERED: ONDANSETRON 4 MG/2 ML VIAL IVPUSH ONE (15:02)
--- NOTE | 2019-08-17 15:03 | PDOC ---
Rapid Medical Evaluation Medical Evaluation: Allergies Allergy/AdvReac Type Severity Reaction Status Date / Time cashew nut Allergy Verified 08/17/19 14:58 08/17/19 14:58 Pt presents for evaluation of vomiting since Friday, pt with hx of dialyisis T/ /S. No sick contacts. Unable to keep anything down. Endorses abdominal pain. Pt still makes urine Exam: NAD, abdomen distended. Diffuse discomfort Orders: labs, IV access, EKG Pt to proceed to the ER for further evaluation Discharge Disposition - Diagnosis Vomiting Qualifiers: Vomiting type: unspecified Vomiting Intractability: unspecified Nausea presence : unspecified Qualified Code(s): R11.10 - Vomiting, unspecified - Referrals - Patient Instructions - Post Discharge Activity
--- NOTE | 2019-08-17 15:14 | PDOC ---
History of Present Illness <Juan F Payne - Last Filed: 08/17/19 20:01> - General History Source: Patient - History of Present Illness Initial Comments: 08/17/19 18:35 Mr. Puri is a 59 y/o man w/hx ESRD (T/Sat dialysis), CAD, CHF (EF 55-60% 2018), DM, HTN, HLD p/w two days of nausea, vomiting, unable to tolerate po, and mild diffuse abdominal cramping. He reports that his symptoms began two days ago when he noted nausea and vomiting on attempting to take his medications. He reports that he has been unable to take any of his medications, including BP medications, since Friday. He reports the abdominal pain as a 5/10 , cramping, intermittent. He has not taken any OTC medications for his symptoms. He denies prior abdominal surgery. He denies prior similar episodes of pain. He denies any diarrhea, constipation, fevers, chills, chest pain, or shortness of breath. <Huan Reaves - Last Filed: 08/19/19 01:05> - General Chief Complaint: Nausea/Vomiting Stated Complaint: VOMITING Time Seen by Provider: 08/17/19 15:03 Past History <Juan F Payne - Last Filed: 08/17/19 20:01> - Past Medical History Anemia: Yes Asthma: No Cancer: No Cardiac Disorders: Yes (STENT X2 year 2016) CVA: Yes COPD: No CHF: Yes Dementia: No Diabetes: Yes Dialysis: Yes (fistula rt upper chest) GI Disorders: No Disorders: Yes (renal dialysis, tues,thur,sat with Rt chest permacath) HTN: Yes Hypercholesterolemia: Yes Liver Disease: No Seizures: Yes (states blood sugar sugar was elevated) Thyroid Disease: No - Surgical History Abdominal Surgery: No Appendectomy: No Cardiac Surgery: Yes (STENT X2) Cholecystectomy: No Lung Surgery: No Neurologic Surgery: No Orthopedic Surgery: Yes - Immunization History Immunization Up to Date: Yes - Psycho Social/Smoking Cessation Hx Smoking History: Never smoked Have you smoked in the past 12 months: No Information on smoking cessation initiated: No Hx Alcohol Use: No Drug/Substance Use Hx: No Substance Use Type: None Hx Substance Use Treatment: No <Huan Reaves - Last Filed: 08/19/19 01:05> - Past Medical History Allergies/Adverse Reactions: Allergies Allergy/AdvReac Type Severity Reaction Status Date / Time cashew nut Allergy Verified 08/17/19 14:58 Home Medications: Ambulatory Orders Tamsulosin HCl [Flomax] 0.4 mg PO DAILY 05/10/19 Clopidogrel Bisulfate [Plavix] 75 mg PO DAILY 05/29/19 Ergocalciferol (Vitamin D2) [Vitamin D2] 50,000 unit PO WEEKLY 05/29/19 Glipizide 10 mg PO BID 05/29/19 Labetalol HCl [Normodyne -] 200 mg PO BID 05/29/19 Losartan Potassium 50 mg PO DAILY 05/29/19 Nifedipine [Procardia Xl] 60 mg PO DAILY 05/29/19 Review of Systems - Review of Systems Able to Perform ROS?: Yes Comments:: ROS: GENERAL/CONSTITUTIONAL: No fever or chills. No weakness. HEAD, EYES, EARS, NOSE AND THROAT: No change in vision. No ear pain or discharge. No sore throat. CARDIOVASCULAR: No chest pain or shortness of breath RESPIRATORY: No cough, wheezing, or hemoptysis. GASTROINTESTINAL: Nausea, vomiting, abdominal pain. No diarrhea or constipation. GENITOURINARY: No dysuria, frequency, or change in urination. MUSCULOSKELETAL: No joint or muscle swelling or pain. No neck or back pain. SKIN: No rash NEUROLOGIC: No headache, vertigo, loss of consciousness, or change in strength/ sensation. ENDOCRINE: No increased thirst. No abnormal weight change HEMATOLOGIC/LYMPHATIC: No anemia, easy bleeding, or history of blood clots. ALLERGIC/IMMUNOLOGIC: No hives or skin allergy. <Huan Reaves - Last Filed: 08/19/19 01:05> *Physical Exam - Vital Signs Last Vital Signs Temp Pulse Resp BP Pulse Ox 98.5 F 81 18 147/69 95 08/17/19 14:59 08/17/19 18:44 08/17/19 18:44 08/17/19 18:44 08/17/19 18:52 <Juan F Payne - Last Filed: 08/17/19 20:01> - Vital Signs Last Vital Signs Temp Pulse Resp BP Pulse Ox 98.5 F 89 20 200/108 H 94 L 08/17/19 14:59 08/17/19 14:59 08/17/19 14:59 08/17/19 14:59 08/17/19 14:59 - Physical Exam PE: GENERAL: Awake, alert, and fully oriented, in no acute distress HEAD: No signs of trauma, normocephalic, atraumatic EYES: PERRLA, EOMI, sclera anicteric, conjunctiva clear ENT: Auricles normal inspection, hearing grossly normal, nares patent, oropharynx clear without exudates. Moist mucosa NECK: Normal ROM, supple, no lymphadenopathy, JVD, or masses LUNGS: No distress, speaks full sentences, clear to auscultation bilaterally HEART: Regular rate and rhythm, normal S1 and S2, no murmurs, rubs or gallops, peripheral pulses normal and equal bilaterally. ABDOMEN: Diffuse tenderness, no guarding or rebound. Soft, normoactive bowel sounds. No masses EXTREMITIES : L BKA. Otherwise - Normal inspection, Normal range of motion, no edema. No clubbing or cyanosis NEUROLOGICAL: Cranial nerves II through XII grossly intact. Normal speech, normal gait, no focal sensorimotor deficits SKIN: Warm, Dry, normal turgor, no rashes or lesions noted <Huan Reaves - Last Filed: 08/19/19 01:05> ED Treatment Course - LABORATORY CBC & Chemistry Diagram: 08/17/19 15:31 08/17/19 15:31 - ADDITIONAL ORDERS Additional order review: Laboratory Results 08/17/19 08/17/19 08/17/19 15:31 15:31 15:31 Sodium 142 Potassium 3.7 Chloride 103 Carbon Dioxide 30 Anion Gap 8 BUN 50.8 H Creatinine 5.4 H Est GFR (CKD-EPI)AfAm 12.46 Est GFR (CKD-EPI)NonAf 10.75 Random Glucose 176 H Lactic Acid 1.7 Calcium 8.6 Phosphorus 3.6 Magnesium 2.6 H Total Bilirubin 0.3 AST 16 ALT 43 Alkaline Phosphatase 122 H Total Protein 7.4 Albumin 3.0 L Lipase 54 L 08/17/19 15:31 RBC 3.86 L MCV 88.3 MCHC 31.9 L RDW 14.0 MPV 7.4 L Neutrophils % 87.4 H Lymphocytes % 6.3 L D Monocytes % 6.0 Eosinophils % 0.1 D Basophils % 0.2 - Medications Given in the ED: ED Medications Discontinued Medications Generic Name Dose Route Start Last Admin Trade Name Freq PRN Reason Stop Dose Admin Al Hydroxide/Mg Hydroxide 30 ml 08/17/19 16:18 08/17/19 16:48 Mylanta Suspension - PO 08/17/19 16:19 30 ml ONCE ONE Administration Famotidine 10 mg 08/17/19 16:18 08/17/19 17:14 Acid It Generalist PO 08/17/19 16:19 Not Given ONCE ONE Famotidine 20 mg 08/17/19 16:21 08/17/19 16:50 Acid It Generalist PO 08/17/19 16:22 20 mg ONCE ONE Administration Labetalol HCl 200 mg 08/17/19 16:19 08/17/19 17:13 Normodyne - PO 08/17/19 16:20 200 mg ONCE ONE Administration Lactated Ringer's 1,000 ml 08/17/19 15:39 08/17/19 16:04 Lactated Ringers Solution IV 08/17/19 15:40 1,000 ml ONCE ONE Administration Nifedipine 10 mg 08/17/19 16:19 08/17/19 17:14 Procardia Capsule - PO 08/17/19 16:20 10 mg ONCE ONE Administration Ondansetron HCl 4 mg 08/17/19 15:02 08/17/19 16:04 Zofran Injection IVPUSH 08/17/19 15:03 4 mg ONCE ONE Administration <Juan F Payne - Last Filed: 08/17/19 20:01> - LABORATORY CBC & Chemistry Diagram: 08/18/19 06:25 08/18/19 06:25 <Huan Reaves - Last Filed: 08/19/19 01:05> Medical Decision Making - Medical Decision Making 59M w/hx HTN, HLD, CAD, ESRD (T/Sat HD) p/w two days ongoing nausea, vomiting, abdominal pain, unable to tolerate po to take his regular medications. Did not present to HD today, HTNsive on exam. Plan: CBC CMP Lactate Lipase Mag Phos Cardiac profile CT abdomen/pelvis EKG CXR Home labetolol 200 mg Home nifedipine 60 mg Famotidine Maalox Ondansetron - administered at fast track before transfer to main ED Dispo: Admit 08/17/19 18:44 Repeat BP - 147/69 --- CBC - wnl CMP - Cr - 5.6 (hx ESRD) Troponin - 0.07 Lipase - negative Lactate - negative CXR - L consolidation vs atelectasis noted, appears unchanged from prior on EKG - NSR, occasional PVCs On reassessment, patient was found to desat to 60s% while sleeping, with normal waveform noted on pulse oximetry. O2% returned to normal spontaneously when woken. He denies any history of sleep apnea. Case discussed with attending, plan for admission. Case signed out to night team, plan for admission pending CT abdomen results. <Huan Reaves - Last Filed: 08/19/19 01:05> Discharge - Discharge Information Problems reviewed: Yes - Admission Yes <Juan F Payne - Last Filed: 08/17/19 20:01> - Discharge Information Problems reviewed: Yes <Huan Reaves - Last Filed: 08/19/19 01:05> - Discharge Information Clinical Impression/Diagnosis: Hypoxia Vomiting Qualifiers: Vomiting type: unspecified Vomiting Intractability: unspecified Nausea presence : unspecified Qualified Code(s): R11.10 - Vomiting, unspecified Condition: Stable
[2019-08-17] MEDS ORDERED: LACTATED RINGERS SOLUTION 1000 ML INFUS.BAG IV ONE (15:39)
[2019-08-17] MEDS ORDERED: ONDANSETRON 4 MG/2 ML VIAL ONE (15:52)
[2019-08-17 16:06] LABS: BASO % 0.2 % (0-2.0); EOS % 0.1 % (0-4.5); HEMATOCRIT 34.1 % (35.4-49); HEMOGLOBIN 10.9 GM/dL (11.7-16.9); LYMPH % 6.3 % (8-40); MCH 28.1 pg (25.7-33.7); MCHC 31.9 g/dl (32.0-35.9); MEAN CELL VOLUME 88.3 fl (80-96); MEAN PLT VOLUME 7.4 fl (7.5-11.1); NEUT % 87.4 % (42.8-82.8); PLATELET COUNT 266 K/MM3 (134-434); RBC 3.86 M/mm3 (4.00-5.60); WHITE BLOOD COUNT 10.1 K/mm3 (4.0-10.0)
[2019-08-17] MEDS ORDERED: FAMOTIDINE 10 MG TABLET PO ONE ×2 (16:18→16:21)
[2019-08-17] MEDS ORDERED: MAG HYDROX/AL HYDROX/SIMETH -MYLANTA- ORAL SUSPENSION PO ONE (16:18)
[2019-08-17] MEDS ORDERED: LABETALOL HCL 200 MG TABLET (FP) PO ONE (16:19)
[2019-08-17] MEDS ORDERED: NIFEdipine 10 MG CAPSULE (FP) PO ONE (16:19)
[2019-08-17 16:34] LABS: BILIRUBIN,TOTAL 0.3 mg/dL (0.2-1); BLOOD UREA NITROGEN 50.8 mg/dL (7-18); CALCIUM 8.6 mg/dL (8.5-10.1); CREATININE 5.4 mg/dL (0.55-1.3); MAGNESIUM 2.6 mg/dL (1.8-2.4); PHOSPHOROUS 3.6 mg/dL (2.5-4.9); POTASSIUM 3.7 mmol/L (3.5-5.1); TOT PROT 7.4 g/dl (6.4-8.2)
[2019-08-17] MEDS ORDERED: FAMOTIDINE 20 MG TABLET ONE (16:43)
[2019-08-17] MEDS ORDERED: MAG HYDROX/AL HYDROX/SIMETH 30 ML UNIT-DOSE CUP ONE (16:43)
--- NOTE | 2019-08-17 17:24 | PDOC ---
Documentation entered by Juan F Newton SCRIBE, acting as scribe for Farhat Winston MD. Farhat Winston MD: This documentation has been prepared by the Aman lopez Daniel, SCRIBE, under my direction and personally reviewed by me in its entirety. I confirm that the documentation accurately reflects all work, treatment, procedures, and medical decision making performed by me. Attending Attestation - Resident Resident Name: JellyHuan - ED Attending Attestation I have performed the following: I have examined & evaluated the patient, The case was reviewed & discussed with the resident, I agree w/resident's findings & plan, Exceptions are as noted - HPI HPI: 08/17/19 16:19 The patient is a 59 year old male with a past medical history of ESRD, CAD, CHF , CVA (2018), diabetes, HTN, and HLD here today for evaluation of diffuse abdominal pain and vomiting. The patient reports that he has poor PO intake recently and notes diffuse abdominal pain most prominent in the epigastric area , nausea, and non bloody non bilious vomiting. He also notes cough and chills and states that he had similar pain when he had pneumonia. Patient denies headache, lightheadedness. Denies fever. Denies chest pain, shortness of breath. Denies diarrhea. Allergies: cashew nuts Direct Support Professional Home Health: Mansoor Quiroz - Physicial Exam PE: 08/17/19 16:47 Vitals: Triage Vital signs reviewed General Appearance: no acute distress, well nourished well developed, Head: Atraumatic, normocephalic Neck: Supple;No Nuchal rigidity Chest Wall: Nontender Abdomen: +Epigastric tenderness. Soft, nondistended, normal bowel sounds Extremities: Full range of motion to all extremities, no cyanosis, clubbing, or edema Skin: Warm and dry, no rashes or lesions, no petechiae Neuro: AOX3; Strength intact to all extremities, Sensation intact to all extremities Psych: normal mood, normal affect - Medical Decision Making 08/17/19 19:10 Poorly controlled diabetic schizophrenic with epigastric pain nausea vomiting unable to tolerate fluids end-stage renal disease on dialysis missed dialysis today potassium normal patient will receive CAT scan with IV contrast will need dialysis tomorrow Second issue when patient falls asleep patient becomes severely hypoxic. His sats dropped to the mid 60s is not on any oxygen at home cannot be safely discharged like this will require supplemental oxygen and possibly BiPAP this evening We will admit to medicine for further management Dr. Bhandari to follow up CT and dispo
--- NOTE | 2019-08-17 21:13 | PN ---
Teaching Attending Note Name of Resident: Som Regalado ATTENDING PHYSICIAN STATEMENT I saw and evaluated the patient. I reviewed the resident's note and discussed the case with the resident. I agree with the resident's findings and plan as documented. SUBJECTIVE: 51-year-old male with multiple medical problems including end-stage renal disease on hemodialysis, CAD, CHF, CVA in 2018, uncontrolled diabetes mellitus, hypertension, dyslipidemia presents complaining of diffuse abdominal pain and vomiting. Poor p.o. intake, worse abdominal pain in epigastric region. Nausea , nonbloody nonbilious vomiting. Allegedly reported some shortness of breath. OBJECTIVE: Last Vital Signs Temp Pulse Resp BP Pulse Ox 98.5 F 81 18 147/69 95 08/17/19 14:59 08/17/19 18:44 08/17/19 18:44 08/17/19 18:44 08/17/19 18:52 Physical exam showed a 59-year-old man not in any acute distress. Saturating well on nasal cannula. Not complaining of any shortness of breath at this time. Lungs were essentially clear to auscultation bilaterally, cardiovascular exam showed S1, S2 with no murmurs, rubs or gallops. 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 Right chest hemodialysis catheter in place. Abnormal Lab Results 08/17/19 08/17/19 08/17/19 15:31 15:31 15:31 WBC 10.1 H RBC 3.86 L Hgb 10.9 L Hct 34.1 L D MCHC 31.9 L MPV 7.4 L Absolute Neuts (auto) 8.8 H Neutrophils % 87.4 H Lymphocytes % 6.3 L D BUN 50.8 H Creatinine 5.4 H Random Glucose 176 H Magnesium 2.6 H Alkaline Phosphatase 122 H Albumin 3.0 L Lipase 54 L Chest x-ray reviewednoted to have right subclavian hemodialysis access EKG did not show any acute ischemic changes ASSESSMENT AND PLAN: 51-year-old male with a history of CAD, end-stage renal disease on hemodialysis coming in with shortness of breath and epigastric pain. ACS should be ruled out in this high-risk patient. Telemetry observation Send troponin and trend Aspirin 81 mg Moderate dose statin Cardiology consult Transthoracic echo Monitor vital signs closely Nitroglycerin sublingual as needed if chest pain #End-stage renal diseaseTuesday, Friday dialysis Renal consult for hemodialysis Sodium bicarb 3 times daily Calcium trial, ergocalciferol Sevelamer 3 times daily Fluid and salt restriction #CADCHF Aspirin, statin #Diabetes mellitusuncontrolled Insulin sliding scale, A1c, basal insulin #Anemianormocytic MCV. Suspect anemia of chronic disease secondary to CKD Would likely benefit from EPO Ferrous sulfate Stool for fecal occult blood #Severe uncontrolled hypertension with systolic over 200 in the emergency room. Improved after administration of labetalol p.o., nifedipine. Continue home dose hypertensive medications Salt and free water restriction Continue hemodialysis Heparin subcutaneously for DVT prophylaxis
[2019-08-17] MEDS ORDERED: HEPARIN NA (PORCINE) 5,000 UNITS/ML 1ML VIAL ONE (22:21)
--- NOTE | 2019-08-17 22:21 | HP ---
CHIEF COMPLAINT: abdominal pain PCP: Dr. Keating HISTORY OF PRESENT ILLNESS: 59 y.o. M PMH ESRD (on HD tu/fri, missed today's HD), CAD, CHF, CVA in 2018, DM, HTN, HLD, schizophrenia presenting for diffuse abdominal pain x 2 days, most prominent in epigastric region. The pain began after he ate leftover [employer] pizza. Abd pain is associated w/ nausea and NBNB emesis x 2 days, unable to tolerate PO and subsequently has not taken any PO meds. Denies diarrhea/ constipation. On admission BP noted to be 200/108 which improved to 147/69 after PO home med administration (labetalol 200mg, procardia 10mg). While in ED , patient fell asleep & had desats to 65%; once he woke up sats improved to >90 % on nasal cannula. The patient states he has tried BIPAP in the past and was told by a doctor that he needs to use it at night but he does not like using it. ER course was notable for: (1) zofran 4mg, pepcid 20mg (2)1L lactate ringers (3) procardia 10m PO, labetalol 200mg PO Recent Travel: denies PAST MEDICAL HISTORY:as per hpi PAST SURGICAL HISTORY: denies Social History: lives w/ friend in an apartment. not currently working. Smoking: denies Alcohol:denies Drugs: denies Allergies cashew nut Allergy (Verified 08/17/19 14:58) Family hx: DM in father HOME MEDICATIONS: Home Medications Medication Instructions Recorded Tamsulosin HCl [Flomax] 0.4 mg PO DAILY 05/10/19 Clopidogrel Bisulfate [Plavix] 75 mg PO DAILY 05/29/19 Ergocalciferol (Vitamin D2) 50,000 unit PO WEEKLY 05/29/19 [Vitamin D2] Glipizide 10 mg PO BID 05/29/19 Labetalol HCl [Normodyne -] 200 mg PO BID 05/29/19 Losartan Potassium 50 mg PO DAILY 05/29/19 Nifedipine [Procardia Xl] 60 mg PO DAILY 05/29/19 REVIEW OF SYSTEMS CONSTITUTIONAL: Absent: fever, chills, diaphoresis, generalized weakness, malaise, loss of appetite, weight change HEENT: Absent: rhinorrhea, nasal congestion, throat pain, throat swelling, difficulty swallowing, mouth swelling, ear pain, eye pain, visual changes CARDIOVASCULAR: Absent: chest pain, syncope, palpitations, irregular heart rate, lightheadedness , peripheral edema RESPIRATORY: shortness of breath Absent: cough, dyspnea with exertion, orthopnea, wheezing, stridor, hemoptysis GASTROINTESTINAL:abdominal pain, nausea Absent: abdominal distension, vomiting, diarrhea, constipation, melena, hematochezia GENITOURINARY: Absent: dysuria, frequency, urgency, hesitancy, hematuria, flank pain, genital pain MUSCULOSKELETAL: Absent: myalgia, arthralgia, joint swelling, back pain, neck pain SKIN: Absent: rash, itching, pallor HEMATOLOGIC/IMMUNOLOGIC: Absent: easy bleeding, easy bruising, lymphadenopathy, frequent infections ENDOCRINE: Absent: unexplained weight gain, unexplained weight loss, heat intolerance, cold intolerance NEUROLOGIC: Absent: headache, focal weakness or paresthesias, dizziness, unsteady gait, seizure, mental status changes, bladder or bowel incontinence PSYCHIATRIC: Absent: anxiety, depression, suicidal or homicidal ideation, hallucinations. PHYSICAL EXAMINATION Vital Signs - 24 hr 08/17/19 08/17/19 08/17/19 14:59 17:01 17:35 Temperature 98.5 F Pulse Rate 89 Pulse Rate [ 95 H Left] Respiratory 20 18 Rate Blood Pressure 200/108 H Blood Pressure 206/108 H [Right Arm] O2 Sat by Pulse 94 L 95 69 L Oximetry (%) 08/17/19 08/17/19 18:44 18:52 Temperature Pulse Rate Pulse Rate [ 81 Left] Respiratory 18 Rate Blood Pressure Blood Pressure 147/69 [Right Arm] O2 Sat by Pulse 96 95 Oximetry (%) GENERAL: Awake, alert, and fully oriented, in no acute distress. HEENT: NCAT. PERRLA. MMM. Conjunctiva clear, sclera anicteric. LUNGS: Breath sounds equal, clear to auscultation bilaterally. No wheezes, and no crackles. No accessory muscle use. HEART: Regular rate and rhythm, normal S1 and S2 without murmur, rub or gallop. ABDOMEN: Tender to palpation epigastric region. Soft, not distended, normoactive bowel sounds, no guarding, no rebound. EXTREMITIES: 2+ pulses, warm, well-perfused. No peripheral edema. PSYCHIATRIC: Good mood. Flat affect. SKIN: Warm, dry, normal turgor, no rashes or lesions noted, normal capillary refill. Laboratory Results - last 24 hr Laboratory Last Values WBC 10.1 K/mm3 (4.0-10.0) H 08/17/19 15:31 RBC 3.86 M/mm3 (4.00-5.60) L 08/17/19 15:31 Hgb 10.9 GM/dL (11.7-16.9) L 08/17/19 15: Hct 34.1 % (35.4-49) L D 08/17/19 15:31 MCV 88.3 fl (80-96) 08/17/19 15: MCH 28.1 pg (25.7-33.7) 08/17/19 15: MCHC 31.9 g/dl (32.0-35.9) L 08/17/19 15: RDW 14.0 % (11.9-15.9) 08/17/19 15: Plt Count 266 K/MM3 (134-434) 08/17/19 15: MPV 7.4 fl (7.5-11.1) L 08/17/19 15:31 Absolute Neuts (auto) 8.8 K/mm3 (1.5-8.0) H 08/17/19 15:31 Neutrophils % 87.4 % (42.8-82.8) H 08/17/19 15:31 Lymphocytes % 6.3 % (8-40) L D 08/17/19 15:31 Monocytes % 6.0 % (3.8-10.2) 08/17/19 15: Eosinophils % 0.1 % (0-4.5) D 08/17/19 15:31 Basophils % 0.2 % (0-2.0) 08/17/19 15: Nucleated RBC % 0 % (0-0) 08/17/19 15:31 Sodium 142 mmol/L (136-145) 08/17/19 15:31 Potassium 3.7 mmol/L (3.5-5.1) 08/17/19 15:31 Chloride 103 mmol/L (98-107) 08/17/19 15:31 Carbon Dioxide 30 mmol/L (21-32) 08/17/19 15:31 Anion Gap 8 MMOL/L (8-16) 08/17/19 15:31 BUN 50.8 mg/dL (7-18) H 08/17/19 15:31 Creatinine 5.4 mg/dL (0.55-1.3) H 08/17/19 15:31 Est GFR (CKD-EPI)AfAm 12.46 08/17/19 15:31 Est GFR (CKD-EPI)NonAf 10.75 08/17/19 15:31 Random Glucose 176 mg/dL (74-106) H 08/17/19 15:31 Lactic Acid 1.7 mmol/L (0.4-2.0) 08/17/19 15:31 Calcium 8.6 mg/dL (8.5-10.1) 08/17/19 15:31 Phosphorus 3.6 mg/dL (2.5-4.9) 08/17/19 15:31 Magnesium 2.6 mg/dL (1.8-2.4) H 08/17/19 15:31 Total Bilirubin 0.3 mg/dL (0.2-1) 08/17/19 15:31 AST 16 U/L (15-37) 08/17/19 15:31 ALT 43 U/L (13-61) 08/17/19 15:31 Alkaline Phosphatase 122 U/L (45-117) H 08/17/19 15:31 Creatine Kinase 244 U/L (26-308) 08/17/19 15:31 Creatine Kinase Index 0.8 % (0.0-5.0) 08/17/19 15:31 CK-MB (CK-2) 2.1 ng/mL (0.5-3.6) 08/17/19 15:31 Troponin I 0.05 ng/ml (0.00-0.05) 08/17/19 15:31 Total Protein 7.4 g/dl (6.4-8.2) 08/17/19 15:31 Albumin 3.0 g/dl (3.4-5.0) L 08/17/19 15:31 Lipase 54 U/L (73-393) L 08/17/19 15:31 Influenza A (Rapid) Negative (Negative) 08/17/19 21:00 Influenza B (Rapid) Negative (Negative) 02/11/20 21:00 Imaging: CT A/P: In comparison to a prior CT study of 06/22/2019 note is again made of moderate left-sided and small right-sided pleural effusion layering posteriorly. There is mild, increased concentric subcutaneous soft tissue stranding along the abdomen and pelvis consistent with fluid retention. No evidence of pneumoperitoneum, abscess, free intraperitoneal fluid or bowel obstruction. Cholelithiasis identified on previous exams is difficult to appreciate on the current study. No CT evidence of acute cholecystitis. There is no definite biliary tract dilatation. The partially visualized appendix demonstrates no definite abnormality. Colonic diverticulosis is noted without evidence of acute diverticulitis. There is no gross noncontrast small bowel pathology. The liver, spleen, pancreas, and adrenal glands demonstrate no obvious pathology. There is no hydronephrosis. No aortic aneurysm is seen. There is no definite lymphadenopathy on the basis of size criteria. No obvious pelvic soft tissue abnormality is noted. Small umbilical hernia containing fat and a trace amount of free fluid. There is no obvious acute osseous pathology. CXR: Single AP view of the chest has been submitted. Since 07/05/2019 and again noted is the fluid with atelectasis or infiltrate at the left base with prominent mediastinum, fluid in the horizontal fissure, minimal congestive changes and right jugular line with tip at junction of SVC and right atrium. Correlation recommended. ASSESSMENT/PLAN: 59 y.o. M PMH ESRD (on HD tues/fri, missed today's HD), CAD, CHF, CVA in 2018, DM, HTN, HLD, schizophrenia presenting with acute gastroenteritis. #Acute gastroenteritis -CT A/P: no acute pathology noted -NPO tonight, can advance diet to clears in AM if able to tolerate -IVF -zofran prn for nausea -leukocytosis, f/u AM cbc #Hypertensive emergency -Patient did not take home meds 2/2 decr PO intake -resolved w/ administration of home meds: labetalol 200mg, procardia 10g-- continue home medications -Trop 0.05-- f/u repeat -denies chest pain-- can give SL nitro if chest pain -EKG shows NSR, qtc 454, no ST changes or T inversions -monitor on tele obs #ESRD -On HD tues/ fri but missed today's session -BUN/cr 51/5.4-- trend renal labs -replete electrolytes -avoid nephrotoxic medications -IVF, PPI -Dr. Martinez renal consulted #CHF -last echo 03/2019 showing normal EF -f/u echo this visit -continue home meds #CAD -aspirin 81 mg, statin -no acute issues continue to monitor #Normocytic anemia -likely due to chronic renal disease -Hgb/Hct 10.9/34.1 -monitor cbc #Diabetes mellitus -ISS -BGMs ACHS -Hold home oral meds -f/u HbA1c #Schizophrenia -patient does not f/u with psychiatrist -on no home meds -psych outpatient f/u #PPX -heparin SQ -protonix 40mg IV daily #FEN -NS @100cc/hr -trend lytes replete as needed -can advance diet as tolerated #Dispo observe on telemetry Visit type - Emergency Visit Emergency Visit: Yes ED Registration Date: 08/17/19 Care time: The patient presented to the Emergency Department on the above date and was hospitalized for further evaluation of their emergent condition. - New Patient This patient is new to me today: Yes Date on this admission: 08/18/19 - Critical Care Critical Care patient: No ATTENDING PHYSICIAN STATEMENT I saw and evaluated the patient. I reviewed the resident's note and discussed the case with the resident. I agree with the resident's findings and plan as documented. SUBJECTIVE: OBJECTIVE: ASSESSMENT AND PLAN:
[2019-08-17] MEDS: HEPARIN NA (PORCINE) 5,000 UNITS/ML 1ML VIAL SQ SCH (22:30)
[2019-08-17] MEDS: SODIUM CHLORIDE 1,000 ML IV SCH (22:30)
[2019-08-18] MEDS: HEPARIN NA (PORCINE) 5,000 UNITS/ML 1ML VIAL SQ SCH ×3 (06:35→21:41)
[2019-08-18] MEDS: INSULIN SLIDING SCALE (NOVOLOG) 1 VIAL SQ SCH ×4 (07:04→21:41)
[2019-08-18 07:27] LABS: EOS % 0.8 % (0-4.5); HEMATOCRIT 27.3 % (35.4-49); HEMOGLOBIN 8.9 GM/dL (11.7-16.9); LYMPH % 14.3 % (8-40); MCH 28.7 pg (25.7-33.7); MCHC 32.5 g/dl (32.0-35.9); MEAN CELL VOLUME 88.1 fl (80-96); MEAN PLT VOLUME 7.6 fl (7.5-11.1); MONO % 7.4 % (3.8-10.2); NEUT % 76.5 % (42.8-82.8); PLATELET COUNT 220 K/MM3 (134-434); RBC 3.09 M/mm3 (4.00-5.60); WHITE BLOOD COUNT 7.5 K/mm3 (4.0-10.0)
[2019-08-18 07:59] LABS: ALBUMIN 2.6 g/dl (3.4-5.0); BILIRUBIN,TOTAL 0.5 mg/dL (0.2-1); BLOOD UREA NITROGEN 53.6 mg/dL (7-18); CALCIUM 7.6 mg/dL (8.5-10.1); CREATININE 5.6 mg/dL (0.55-1.3); MAGNESIUM 2.5 mg/dL (1.8-2.4); PHOSPHOROUS 3.7 mg/dL (2.5-4.9); POTASSIUM 3.9 mmol/L (3.5-5.1); TOT PROT 6.3 g/dl (6.4-8.2)
--- NOTE | 2019-08-18 08:42 | PN ---
Progress Note, Physician Chief Complaint: Pt neuro status back to baseline. CT head without acute findings. Stating he is hungry and abd pain resolved. Claimed he had HD yesterday however verified that he missed session. History of Present Illness: 59 y.o. M PMH ESRD (on HD tu/fri, missed today's HD), CAD, CHF, CVA in 2018, DM, HTN, HLD, schizophrenia presenting with acute gastroenteritis.While in ED pt became confused with left facial droop more pronounced (previous CVA with mild left facial droop) and UE weakness that resolved after 30min - Current Medication List Current Medications: Active Medications Clopidogrel Bisulfate (Plavix -) 75 mg PO DAILY [facility] Ergocalciferol (Drisdol -) 50,000 unit PO WEEKLY [facility] Heparin Sodium (Porcine) (Heparin -) 5,000 unit SQ TID [facility] Last Admin: 08/18/19 06:35 Dose: 5,000 unit Sodium Chloride (Normal Saline -) 1,000 mls @ 100 mls/hr IV ASDIR [facility] Last Admin: 08/17/19 22:30 Dose: 100 mls/hr Insulin Aspart (Novolog Vial Sliding Scale -) 1 vial SQ ACHS [facility], [facility]; Protocol Last Admin: 08/18/19 07:04 Dose: Not Given Labetalol HCl (Normodyne -) 200 mg PO BID [facility] Losartan Potassium (Cozaar -) 50 mg PO DAILY [facility] Nifedipine (Procardia Xl -) 60 mg PO DAILY [facility] Pantoprazole Sodium (Protonix Iv) 40 mg IVPUSH DAILY [facility]1983 Tamsulosin HCl (Flomax -) 0.4 mg PO DAILY@0830 [facility]1983 - Objective Vital Signs: Vital Signs Temperature 98.6 F 08/18/19 06:12 Pulse Rate 76 08/18/19 06:12 Respiratory Rate 17 08/18/19 06:12 Blood Pressure 171/91 H 08/18/19 06:12 O2 Sat by Pulse Oximetry (%) 96 08/18/19 05:55 Constitutional: Yes: Well Nourished, No Distress, Calm Eyes: Yes: WNL, Conjunctiva Clear HENT: Yes: WNL, Atraumatic, Normocephalic Neck: Yes: WNL, Supple, Trachea Midline Cardiovascular: Yes: WNL, Regular Rate and Rhythm Respiratory: Yes: WNL, Regular, CTA Bilaterally Gastrointestinal: Yes: WNL, Normal Bowel Sounds, Soft, Tenderness, Epigastrium ( resolved) ...Rectal Exam: Yes: Deferred Genitourinary: Yes: Other (on HD, states he makes some urine. HD cath to right chest wall. No reddness/tenderness) Breast(s): Yes: WNL Musculoskeletal: Yes: WNL Extremities: Yes: WNL Edema: Yes Edema: LLE: Trace, RLE: Trace Peripheral Pulses WNL: Yes Peripheral Pulses: Left Radial: 2+, Right Radial: 2+, Left Doralis Pedis: 2+, Right Dorsalis Pedis: 2+, Left Femoral: 2+, Right Femoral: 2+ Integumentary: Yes: WNL Neurological: Yes: WNL, Alert, Oriented, Confusion (resolved. mild existing facial droop to corner of mouth. No wekness, now resolved), Facial Droop ( existing) ...Motor Strength: WNL Psychiatric: Yes: WNL Labs: CBC, BMP 08/18/19 06:25 08/18/19 06:25 - ....Imaging Chest X-ray: Report Reviewed (Single AP view of the chest has been submitted. Since 07/05/2019 and again noted is the fluid with atelectasis or infiltrate at the left base with prominent mediastinum, fluid in the horizontal fissure, minimal congestive changes and right jugular line with tip at junction of SVC and right atrium. Correlation recommended.) Cat Scan: Report Reviewed (n comparison to a prior CT study of 06/22/2019 note is again made of moderate left-sided and small right-sided pleural effusion layering posteriorly. There is mild, increased concentric subcutaneous soft tissue stranding along the abdomen and pelvis consistent with fluid retention. No evidence of pneumoperitoneum, abscess, free intraperitoneal fluid or bowel obstruction. Cholelithiasis identified on previous exams is difficult to appreciate on the current study. No CT evidence of acute cholecystitis. There is no definite biliary tract dilatation. The partially visualized appendix demonstrates no definite abnormality. Colonic diverticulosis is noted without evidence of acute diverticulitis. There is no gross noncontrast small bowel pathology. The liver, spleen, pancreas, and adrenal glands demonstrate no obvious pathology. There is no hydronephrosis. No aortic aneurysm is seen. There is no definite lymphadenopathy on the basis of size criteria. No obvious pelvic soft tissue abnormality is noted. Small umbilical hernia containing fat and a trace amount of free fluid. There is no obvious acute osseous pathology.) Problem List - Problems (1) Hemodialysis patient Assessment/Plan: On HD, missed session on seen by Dr Quiroz arranging for HD with UF-mild congestion on CXR, trace edema Problems reviewed: Yes Code(s): Z99.2 - DEPENDENCE ON RENAL DIALYSIS (2) History of CVA (cerebrovascular accident) Assessment/Plan: residual facial droop noted, extrem weakness c/w PT fall precautions Code(s): Z86.73 - PRSNL HX OF TIA (TIA), AND CEREB INFRC W/O RESID DEFICITS (3) HLD (hyperlipidemia) Assessment/Plan: statin increased to 80mg Code(s): E78.5 - HYPERLIPIDEMIA, UNSPECIFIED (4) Schizophrenia Assessment/Plan: supportive care no psych meds at [facility] Code(s): F20.9 - SCHIZOPHRENIA, UNSPECIFIED (5) Abdominal pain Assessment/Plan: CT scan without acute pathology c/w gentle hydration antiemetics prn missed HD session renal following Code(s): R10.9 - UNSPECIFIED ABDOMINAL PAIN (6) CAD (coronary artery disease) Assessment/Plan: c/w statin, asa, BB Code(s): I25.10 - ATHSCL HEART DISEASE OF [place] CORONARY ARTERY W/O ANG PCTRS Qualifiers: Coronary Disease-Associated Artery/Lesion type: unspecified vessel or lesion type Associated angina: angina presence unspecified (7) CHF (congestive heart failure) Assessment/Plan: daily weights strict I/Os Code(s): I50.9 - HEART FAILURE, UNSPECIFIED Qualifiers: Heart failure type: systolic Heart failure chronicity: acute on chronic Qualified Code(s): I50.23 - Acute on chronic systolic (congestive) heart failure (8) Hypertension Assessment/Plan: hypertensive on admission planned for HD c/w losartan,procardia continue to monitor Code(s): I10 - ESSENTIAL (PRIMARY) HYPERTENSION Qualifiers: Hypertension type: unspecified Qualified Code(s): I10 - Essential (primary ) hypertension (9) Gastroenteritis Assessment/Plan: CT without acute fisnings NPO now will start with clear diet anti-emetics Code(s): K52.9 - NONINFECTIVE GASTROENTERITIS AND COLITIS, UNSPECIFIED (10) Normocytic anemia Assessment/Plan: -likely due to chronic renal disease -Hgb/Hct 10.9/34.1 -monitor cbc Code(s): D64.9 - ANEMIA, UNSPECIFIED (11) TIA (transient ischemic attack) Assessment/Plan: Dr Bautista to see pt carotid dopplers ordered and pending c/w asa 81mg , plavix monitor on tele Code(s): G45.9 - TRANSIENT CEREBRAL ISCHEMIC ATTACK, UNSPECIFIED Visit type - Emergency Visit Emergency Visit: Yes ED Registration Date: 08/17/19 Care time: The patient presented to the Emergency Department on the above date and was hospitalized for further evaluation of their emergent condition. - New Patient This patient is new to me today: Yes Date on this admission: 08/26/19 - Critical Care Critical Care patient: No - Discharge Referral [facility]erred to [facility] Med P.C.: No
--- NOTE | 2019-08-18 09:26 | PDOC ---
*Physical Exam - Vital Signs Last Vital Signs Temp Pulse Resp BP Pulse Ox 98.6 F 76 17 171/91 H 96 08/18/19 06:12 08/18/19 06:12 08/18/19 06:12 08/18/19 06:12 08/18/19 05:55 - Physical Exam 08/18/19 09:26 Called to patient's bedside by RN. Patient appears confused with a left sided facial droop and left upper extremity weakness. BGM noted to be 148. Patient hypertensive. Will obtain stat head CT. Will initiate stroke protocol. 08/18/19 09:[address] Verbal report from Dr. Taylor: No acute intracranial pathology. On repeat exam, patient is ANO x3, left facial droop has resolved and so has left upper extremity weakness. Patient symptoms are consistent with a TIA. I discussed the case with Dr. Moran of neurology. Will administer antiplatelet agents. Will not aggressively lower blood pressure at this time. Patient not a TPA candidate. I also informed the admitting EQUALIZING SAW OPERATOR who will evaluate the patient. ED Treatment Course - LABORATORY CBC & Chemistry Diagram: 08/22/19 08:18 08/22/19 08:18 - ADDITIONAL ORDERS Additional order review: Laboratory Results 08/17/19 15:31 Phosphorus 3.6 Magnesium 2.6 H Creatine Kinase 244 Creatine Kinase Index 0.8 CK-MB (CK-2) 2.1 Troponin I 0.05 08/17/19 15:31 RBC 3.86 L MCV 88.3 MCHC 31.9 L RDW 14.0 MPV 7.4 L Neutrophils % 87.4 H Lymphocytes % 6.3 L D Monocytes % 6.0 Eosinophils % 0.1 D Basophils % 0.2 - Medications Given in the ED: ED Medications Discontinued Medications Generic Name Dose Route Start Last Admin Trade Name Freq PRN Reason Stop Dose Admin Al Hydroxide/Mg Hydroxide 30 ml 08/17/19 16:18 08/17/19 16:48 Mylanta Suspension - PO 08/17/19 16:19 30 ml ONCE ONE Administration Famotidine 10 mg 08/17/19 16:18 08/17/19 17:14 Acid Event Crew Technician PO 08/17/19 16:19 Not Given ONCE ONE Famotidine 20 mg 08/17/19 16:21 08/17/19 16:50 Acid Event Crew Technician PO 08/17/19 16:22 20 mg ONCE ONE Administration Labetalol HCl 200 mg 08/17/19 16:19 08/17/19 17:13 Normodyne - PO 08/17/19 16:20 200 mg ONCE ONE Administration Lactated Ringer's 1,000 ml 08/17/19 15:39 08/17/19 16:04 Lactated Ringers Solution IV 08/17/19 15:40 1,000 ml ONCE ONE Administration Nifedipine 10 mg 08/17/19 16:19 08/17/19 17:14 Procardia Capsule - PO 08/17/19 16:20 10 mg ONCE ONE Administration Ondansetron HCl 4 mg 08/17/19 15:02 08/17/19 16:04 Zofran Injection IVPUSH 08/17/19 15:03 4 mg ONCE ONE Administration Discharge - Discharge Information Problems reviewed: Yes Clinical Impression/Diagnosis: Hypoxia Vomiting Qualifiers: Vomiting type: unspecified Vomiting Intractability: unspecified Nausea presence : unspecified Qualified Code(s): R11.10 - Vomiting, unspecified Condition: Improved Disposition: HOME - Follow up/Referral - Patient Discharge Instructions - Post Discharge Activity
[2019-08-18] MEDS: NIFEdipine E.R 60 MG TABLET PO SCH (09:35)
[2019-08-18] MEDS: LOSARTAN POTASSIUM 50 MG TABLET (FP) PO SCH (09:35)
[2019-08-18] MEDS: LABETALOL HCL 200 MG TABLET (FP) PO SCH ×2 (09:35→21:41)
[2019-08-18] MEDS: TAMSULOSIN HCL 0.4 MG CAP PO SCH (09:35)
[2019-08-18] MEDS: CLOPIDOGREL BISULFATE 75 MG TABLET (FP) PO SCH (09:35)
[2019-08-18] MEDS ORDERED: PATIENT'S OWN MEDICATION (NON-FORMULARY) (Nifedipine [Procardia Xl] 60 MG) PO SCH (10:00)
[2019-08-18] MEDS ORDERED: PANTOPRAZOLE SODIUM 40 MG VIAL IVPUSH SCH (10:00)
[2019-08-18] MEDS ORDERED: ENOXAPARIN NA (PORCINE) 40 MG/0.4 ML DISP.SYRIN SQ SCH (10:00)
--- NOTE | 2019-08-18 10:43 | EKG ---
Test Reason : Blood Pressure : / mmHG Vent. Rate : 085 BPM Atrial Rate : 085 BPM P-R Int : 190 ms QRS Dur : 076 ms QT Int : 382 ms P-R-T Axes : 032 -11 026 degrees QTc Int : 454 ms SINUS RHYTHM WITH OCCASIONAL PREMATURE VENTRICULAR COMPLEXES POSSIBLE LEFT ATRIAL ENLARGEMENT NONSPECIFIC T WAVE ABNORMALITY ABNORMAL ECG WHEN COMPARED WITH ECG OF 05-JUL-2019 21:07, PREMATURE VENTRICULAR COMPLEXES ARE NOW PRESENT Confirmed by Jameel Duffy MD ([id number]) on 08/18/2019 10:43:31 AM Referred By: Confirmed By:Jameel Duffy MD
[2019-08-18] MEDS ORDERED: EPOETIN ALFA 10,000 UNIT/1 ML VIAL IVPUSH ONE (12:58)
[2019-08-18] MEDS ORDERED: SODIUM CHLORIDE 250 ML IV PRN (12:58)
--- NOTE | 2019-08-18 12:58 | PN ---
Progress Note (short form) - Note Progress Note: Renal consult for ESRD on HD This is a 59 year old gentleman with history of ESRD on HD, DM2 , hypertension, CHF, CAD, CVA who presented from home with complaints of nausea/ vomiting, abdominal pain and shortness of breath with cough. Pt had symtoms from friday. He missed his dailysis on Friday. Denies any fever, chills, diarrhea, hematemeiss, flank pain, confusion, lethargy, weakness or leg swelling. Cough is non-productive. Denies any sick contacts. No skin rash, muscle weakness, blurry vision, JONES, frequency or dysuria. PMhx: as above Allergies: NKDA Family hx: NC Social Hx: No T/A/D ROS: as per HPI, all other pertinent ros negative Home Medications Medication Instructions Recorded Tamsulosin HCl [Flomax] 0.4 mg PO DAILY 05/10/19 Clopidogrel Bisulfate [Plavix] 75 mg PO DAILY 05/29/19 Ergocalciferol (Vitamin D2) 50,000 unit PO WEEKLY 05/29/19 [Vitamin D2] Glipizide 10 mg PO BID 05/29/19 Labetalol HCl [Normodyne -] 200 mg PO BID 05/29/19 Losartan Potassium 50 mg PO DAILY 05/29/19 Nifedipine [Procardia Xl] 60 mg PO DAILY 05/29/19 Vital Signs Temperature 98.5 F 08/18/19 11:30 Pulse Rate 72 08/18/19 11:30 Respiratory Rate 20 08/18/19 11:30 Blood Pressure 162/85 08/18/19 11:30 O2 Sat by Pulse Oximetry (%) 98 08/18/19 11:30 Intake & Output 08/15/19 08/16/19 08/17/19 08/18/19 23:59 23:59 23:59 23:59 Weight 110.223 kg NAD awake and alert on NC O2 neck supple no JVD RRR, no M/R/G CTA, no rales or wheeze soft NT/ND, no rebound or guarding no CVA tenderness no Bladder distension trace LE edema, no cyanosis or clubbing right chest wall HD catheter, no tenderness no focal neurologic deficits CBC, BMP 08/18/19 06:25 08/18/19 06:25 Current Medications Atorvastatin Calcium (Lipitor -) 80 mg PO HS SANGEETHA Atorvastatin Calcium (Lipitor -) 80 mg PO HS ONE Stop: 08/19/19 22:01 Clopidogrel Bisulfate (Plavix -) 75 mg PO DAILY [facility] Last Admin: 08/18/19 09:35 Dose: 75 mg Ergocalciferol (Drisdol -) 50,000 unit PO WEEKLY [facility] Heparin Sodium (Porcine) (Heparin -) 5,000 unit SQ TID [facility] Last Admin: 08/18/19 06:35 Dose: 5,000 unit Sodium Chloride (Normal Saline -) 1,000 mls @ 100 mls/hr IV ASDIR [facility] Last Admin: 08/17/19 22:30 Dose: 100 mls/hr Insulin Aspart (Novolog Vial Sliding Scale -) 1 vial SQ ACHS [facility]; Protocol Last Admin: 08/18/19 11:47 Dose: Not Given Labetalol HCl (Normodyne -) 200 mg PO BID [facility] Last Admin: 08/18/19 09:35 Dose: 200 mg Losartan Potassium (Cozaar -) 50 mg PO DAILY [facility] Last Admin: 08/18/19 09:35 Dose: 50 mg Nifedipine (Procardia Xl -) 60 mg PO DAILY [facility] Last Admin: 08/18/19 09:35 Dose: 60 mg Pantoprazole Sodium (Protonix Iv) 40 mg IVPUSH DAILY [facility] Last Admin: 08/18/19 10:12 Dose: 40 mg Tamsulosin HCl (Flomax -) 0.4 mg PO DAILY@0830 [facility] Last Admin: 08/18/19 09:35 Dose: 0.4 mg 59 year old gentleman with history of ESRD on HD, DM2, hypertension, CHF, CAD, CVA who presented from home with complaints of nausea/ vomiting, abdominal pain and shortness of breath with cough. 1. Nausea and vomiting with Abdominal pain 2. Cough 3. ESRD on HD 4. Hypertension 5. Hx of CHF with evidence of mild congestion on CXR 6. Anemia in setting of CKD 7. Renal Osteodystrophy CT of the Abd/Pelvis w/o signifincat pathology. Etiology of N/V unclear. Could possibly be gastroparesis. Consider GI evalulation. Will arrange for dialysis today with UF as tolerated as pt missed yesterdays dialysis and has signs of mild congestion on CXR. Will give RICHARD with HD for anemia. Trend Phos levels, binders if phos > 5.5 Renal diet if tolerated 1.2L fluid restriction Thank you Mansoor Quiroz DO
--- NOTE | 2019-08-18 17:00 | ECHO ---
Version: 1 Name: FILIPPO RICHARD Exam: Adult Echocardiogram Study Date: 08/18/2019, 1:34 PM Age: 59 Years MMode/2D Measurements & Calculations IVSd: 1.32 cm LVIDs: 3.8 cm LVIDd: 5.1 cm LVPWd: 1.75 cm LAV (MOD-bp): 103.0 ml ACS: 2.16 cm Ao root diam: 2.9 cm LVOT diam: 2.30 cm LA dimension: 3.6 cm Doppler Measurements & Calculations MV E max abraham: 110.6 cm/sec Med E/e': 25.2 MV A max abraham: 76.0 cm/sec Med Peak E' Abraham: 4.4 cm/sec MV E/A: 1.45 Lat E/e': 13.2 Lat Peak E' Abraham: 8.4 cm/sec Ao max P.8 mmHg PANKAJ(I,D): 3.6 cm Ao mean P.4 mmHg LV V1 mean: 82.0 cm/sec Ao V2 max: 130.3 cm/sec LV V1 mean P.0 mmHg PI end-d abraham: 78.7 cm/sec TR max abraham: 233.9 cm/sec TR max P.8 mmHg Procedure The study was technically difficult with many images being suboptimal in quality. Left Ventricle There is moderate concentric left ventricular hypertrophy. Left ventricular systolic function is low normal. Ejection Fraction = 50%. Left Ventricular Filling pattern is normal for age. Right Ventricle The right ventricle is normal in size and function. Atria Normal left and right atrial size and function. Mitral Valve The mitral valve is normal in structure and function. There is no mitral valve stenosis. There is mi ld mitral regurgitation. Tricuspid Valve The tricuspid valve is normal in structure and function. There is mild tricuspid regurgitation. Assu gray the RA pressure is 20 mmHg. Right ventricular systolic pressure is elevated at 50 mmhg. There is moderat e pulmonary hypertension. Aortic Valve The aortic valve is normal in structure and function. Pulmonic Valve The pulmonic valve is normal in structure and function. Great Vessels The aortic root is normal size. Pericardium/Pleura There is no pericardial effusion. There is a pleural effusion present. Summary Statements There is moderate concentric left ventricular hypertrophy. Left ventricular systolic function is low normal. Left Ventricular Filling pattern is normal for age. There is moderate pulmonary hypertension. There is a pleural effusion present. Jerod Bender 08/18/2019, 5:00 PM Ordering Physician: Zulma Swenson Referring Physician: ZULMA SWENSON Performed By: Thi Ibrahim
[2019-08-18 20:13] VITALS: BMI 29.7
[2019-08-18] MEDS: ATORVASTATIN CA 80 MG TABLET (FP) PO SCH (21:41)
[2019-08-18] MEDS: SODIUM CHLORIDE 1,000 ML IV SCH (21:41)
[2019-08-19] MEDS: HEPARIN NA (PORCINE) 5,000 UNITS/ML 1ML VIAL SQ SCH ×3 (06:43→21:49)
[2019-08-19] MEDS: INSULIN SLIDING SCALE (NOVOLOG) 1 VIAL SQ SCH ×4 (06:43→21:53)
[2019-08-19 08:09] LABS: BASO % 0.7 % (0-2.0); EOS % 2.4 % (0-4.5); HEMATOCRIT 26.1 % (35.4-49); HEMOGLOBIN 8.5 GM/dL (11.7-16.9); LYMPH % 19.4 % (8-40); MCH 28.8 pg (25.7-33.7); MCHC 32.8 g/dl (32.0-35.9); MEAN CELL VOLUME 87.9 fl (80-96); MEAN PLT VOLUME 7.5 fl (7.5-11.1); MONO % 9.2 % (3.8-10.2); NEUT % 68.3 % (42.8-82.8); PLATELET COUNT 188 K/MM3 (134-434); RBC 2.97 M/mm3 (4.00-5.60); RDW 13.9 % (11.9-15.9); WHITE BLOOD COUNT 7.6 K/mm3 (4.0-10.0)
--- NOTE | 2019-08-19 08:17 | PN ---
Progress Note, Physician Chief Complaint: Neuro status back to baseline-does not recall event but recalls leading up to. Pt states that he is not getting enough food at meals. History of Present Illness: 59 y.o. M PMH ESRD (on HD /fri, missed today's HD), CAD, CHF, CVA in 2018, DM, HTN, HLD, schizophrenia presenting with acute gastroenteritis.While in ED pt became confused with left facial droop more pronounced (previous CVA with mild left facial droop) and UE weakness that resolved after 30min - Current Medication List Current Medications: Active Medications Atorvastatin Calcium (Lipitor -) 80 mg PO HS [facility] Last Admin: 08/18/19 21:41 Dose: 80 mg Clopidogrel Bisulfate (Plavix -) 75 mg PO DAILY [facility] Last Admin: 08/18/19 09:35 Dose: 75 mg Ergocalciferol (Drisdol -) 50,000 unit PO WEEKLY [facility] Heparin Sodium (Porcine) (Heparin -) 5,000 unit SQ TID [facility] Last Admin: 08/19/19 06:43 Dose: 5,000 unit Sodium Chloride (Normal Saline -) 1,000 mls @ 100 mls/hr IV ASDIR [facility] Last Admin: 08/18/19 21:41 Dose: 100 mls/hr Sodium Chloride (Normal Saline -) 250 mls @ 3,000 mls/hr IV PRN PRN PRN Reason: Hypotension during Dialysis Stop: 08/19/19 12:58 Insulin Aspart (Novolog Vial Sliding Scale -) 1 vial SQ ACHS [facility]; Protocol Last Admin: 08/19/19 06:43 Dose: Not Given Labetalol HCl (Normodyne -) 200 mg PO BID [facility] Last Admin: 08/18/19 21:41 Dose: 200 mg Losartan Potassium (Cozaar -) 50 mg PO DAILY [facility] Last Admin: 08/18/19 09:35 Dose: 50 mg Nifedipine (Procardia Xl -) 60 mg PO DAILY [facility] Last Admin: 08/18/19 09:35 Dose: 60 mg Pantoprazole Sodium (Protonix Iv) 40 mg IVPUSH DAILY [facility] Last Admin: 08/18/19 10:12 Dose: 40 mg Tamsulosin HCl (Flomax -) 0.4 mg PO DAILY@0830 [facility] Last Admin: 08/18/19 09:35 Dose: 0.4 mg - Objective Vital Signs: Vital Signs Temperature 98.7 F 08/19/19 06:00 Pulse Rate 76 08/19/19 06:00 Respiratory Rate 20 08/19/19 06:00 Blood Pressure 114/78 08/19/19 06:00 O2 Sat by Pulse Oximetry (%) 100 08/18/19 21:00 Edema: LLE: Trace, RLE: Trace Peripheral Pulses: Left Radial: 2+, Right Radial: 2+, Left Doralis Pedis: 2+, Right Dorsalis Pedis: 2+, Left Femoral: 2+, Right Femoral: 2+ Additional Findings/Remarks: Constitutional: Yes: Well Nourished, No Distress, Calm Eyes: Yes: WNL, Conjunctiva Clear HENT: Yes: WNL, Atraumatic, Normocephalic Neck: Yes: WNL, Supple, Trachea Midline Cardiovascular: Yes: WNL, Regular Rate and Rhythm Respiratory: Yes: WNL, Regular, CTA Bilaterally Gastrointestinal: Yes: WNL, Normal Bowel Sounds, Soft, Tenderness, Epigastrium ( resolved) ...Rectal Exam: Yes: Deferred Genitourinary: Yes: Other (on HD, states he makes some urine. HD cath to right chest wall. No reddness/tenderness) Breast(s): Yes: WNL Musculoskeletal: Yes: WNL Extremities: Yes: WNL Edema: Yes Edema: LLE: Trace, RLE: Trace Peripheral Pulses WNL: Yes Peripheral Pulses: Left Radial: 2+, Right Radial: 2+, Left Doralis Pedis: 2+, Right Dorsalis Pedis: 2+, Left Femoral: 2+, Right Femoral: 2+ Integumentary: Yes: WNL Neurological: Yes: WNL, Alert, Oriented, Confusion (resolved. mild existing facial droop to corner of mouth. No weakness, now resolved), Facial Droop ( existing) ...Motor Strength: WNL Psychiatric: Yes: WNL Labs: CBC, BMP 08/19/19 06:10 - ....Imaging Cat Scan: Report Reviewed Problem List - Problems (1) Hemodialysis patient Assessment/Plan: On HD, missed session on seen by Dr Quiroz arranging for HD with UF-mild congestion on CXR, trace edema Code(s): Z99.2 - DEPENDENCE ON RENAL DIALYSIS (2) History of CVA (cerebrovascular accident) Assessment/Plan: residual facial droop noted, extrem weakness c/w PT fall precautions Code(s): Z86.73 - PRSNL HX OF TIA (TIA), AND CEREB INFRC W/O RESID DEFICITS (3) HLD (hyperlipidemia) Assessment/Plan: c/w statin 80mg Code(s): E78.5 - HYPERLIPIDEMIA, UNSPECIFIED (4) Schizophrenia Assessment/Plan: supportive care no psych meds at [facility] Code(s): F20.9 - SCHIZOPHRENIA, UNSPECIFIED (5) Abdominal pain Assessment/Plan: CT scan without acute pathology resolved Code(s): R10.9 - UNSPECIFIED ABDOMINAL PAIN (6) CAD (coronary artery disease) Assessment/Plan: c/w statin, asa, BB Code(s): I25.10 - ATHSCL HEART DISEASE OF [place] CORONARY ARTERY W/O ANG PCTRS Qualifiers: Coronary Disease-Associated Artery/Lesion type: unspecified vessel or lesion type Associated angina: angina presence unspecified (7) CHF (congestive heart failure) Assessment/Plan: daily weights strict I/Os Code(s): I50.9 - HEART FAILURE, UNSPECIFIED Qualifiers: Heart failure type: systolic Heart failure chronicity: acute on chronic Qualified Code(s): I50.23 - Acute on chronic systolic (congestive) heart failure (8) Hypertension Assessment/Plan: hypertensive on admission better controlled planned for HD c/w losartan,procardia continue to monitor Code(s): I10 - ESSENTIAL (PRIMARY) HYPERTENSION Qualifiers: Hypertension type: unspecified Qualified Code(s): I10 - Essential (primary ) hypertension (9) Gastroenteritis Assessment/Plan: CT without acute findings tolerating clear diet, will advance anti-emetics as needed Code(s): K52.9 - NONINFECTIVE GASTROENTERITIS AND COLITIS, UNSPECIFIED (10) Normocytic anemia Assessment/Plan: -likely due to chronic renal disease -Hgb/Hct 8.5/26 -monitor cbc Code(s): D64.9 - ANEMIA, UNSPECIFIED (11) TIA (transient ischemic attack) Assessment/Plan: neuro status back to carotid dopplers with stenosis noted plan for CTA after HD c/w asa 81mg , plavix monitor on tele Code(s): G45.9 - TRANSIENT CEREBRAL ISCHEMIC ATTACK, UNSPECIFIED Visit type - Emergency Visit Emergency Visit: Yes ED Registration Date: 08/17/19 Care time: The patient presented to the Emergency Department on the above date and was hospitalized for further evaluation of their emergent condition. - New Patient This patient is new to me today: No - Critical Care Critical Care patient: No - Discharge Referral Referred to [facility] Med P.C.: No
[2019-08-19 09:05] LABS: ALBUMIN 2.4 g/dl (3.4-5.0); BILIRUBIN,TOTAL 0.4 mg/dL (0.2-1); BLOOD UREA NITROGEN 38.2 mg/dL (7-18); CALCIUM 7.5 mg/dL (8.5-10.1); CREATININE 4.7 mg/dL (0.55-1.3); MAGNESIUM 2.4 mg/dL (1.8-2.4); PHOSPHOROUS 2.5 mg/dL (2.5-4.9); POTASSIUM 3.9 mmol/L (3.5-5.1)
[2019-08-19] MEDS ORDERED: PT OWN MED DRAWER 7, Y5N ONE (11:06)
[2019-08-19] MEDS: TAMSULOSIN HCL 0.4 MG CAP PO SCH (11:42)
[2019-08-19] MEDS: LOSARTAN POTASSIUM 50 MG TABLET (FP) PO SCH (11:42)
[2019-08-19] MEDS: PANTOPRAZOLE 40 MG TABLET PO SCH (11:43)
[2019-08-19] MEDS: LABETALOL HCL 200 MG TABLET (FP) PO SCH ×2 (11:43→21:49)
[2019-08-19] MEDS: ASPIRIN COATED 81 MG TABLET.EC PO SCH (11:43)
[2019-08-19] MEDS: CLOPIDOGREL BISULFATE 75 MG TABLET (FP) PO SCH (11:43)
[2019-08-19] MEDS: NIFEdipine E.R 60 MG TABLET PO SCH (11:44)
--- NOTE | 2019-08-19 12:03 | CON.NEURO ---
Consult Consult Specialty:: neurology Referred by:: Radha Reason for Consultation:: Transient dysarthria - History of Present Illness Chief Complaint: I passed out and my speech was slurred for a little while History of Present Illness: 59 year old man with CKD on HD, HTN, DM, prior stroke, who has had several days of poor po intake, nausea, and vomiting, and then syncopal episode, after which he reports he was transiently globally weak and dysarthric for about 10 minutes. Non focal and fine since neurologically. - History Source History Provided By: Patient, Medical Record Limitations to Obtaining History: No Limitations - Past Medical History MANAGER BILINGUAL: Yes: CVA Cardio/Vascular: Yes: CAD, CHF, HTN, Other Gastrointestinal: Yes: Other Renal/: Yes: Renal Inusuff, Hemodialysis Endocrine: Yes: Diabetes Mellitus (DM II) - Past Surgical History Past Surgical History: Yes: Stent - Alcohol/Substance Use Hx Alcohol Use: No History of Substance Use: reports: Cocaine, Marijuana - Smoking History Smoking history: Never smoked Have you smoked in the past 12 months: No - Social History Usual Living Arrangement: With Spouse ADL: Independent 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[employer], 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 [place] History of Recent Travel: No Home Medications - Allergies Allergies/Adverse Reactions: Allergies Allergy/AdvReac Type Severity Reaction Status Date / Time cashew nut Allergy Verified 08/17/19 14:58 - Home Medications Home Medications: Ambulatory Orders Tamsulosin HCl [Flomax] 0.4 mg PO DAILY 05/10/19 Clopidogrel Bisulfate [Plavix] 75 mg PO DAILY 05/29/19 Ergocalciferol (Vitamin D2) [Vitamin D2] 50,000 unit PO WEEKLY 05/29/19 Glipizide 10 mg PO BID 05/29/19 Labetalol HCl [Normodyne -] 200 mg PO BID 05/29/19 Losartan Potassium 50 mg PO DAILY 05/29/19 Nifedipine [Procardia Xl] 60 mg PO DAILY 05/29/19 Physical Exam-Neuro Vital Signs: Vital Signs Temperature 98.7 F 08/19/19 06:00 Pulse Rate 76 08/19/19 06:00 Respiratory Rate 20 08/19/19 06:00 Blood Pressure 114/78 08/19/19 06:00 O2 Sat by Pulse Oximetry (%) 100 08/18/19 21:00 Labs: CBC, BMP 08/19/19 06:10 08/19/19 06:10 - Neuro Exam Level Of Consciousness: Yes: Alert, Oriented to Person, Oriented to Place, Oriented to Time Eyes: Yes: DANIEL Speech: WNL Cranial Nerves II-XII Intact: Yes DTR's: 2+ Left Bicep, 2+ Right Bicep, 2+ Left Tricep, 2+ Right Tricep, 2+ Left Brachioradialis, 2+ Right Brachioradialis Babinski: Absent Response to light touch: Normal Motor Strength: 5/5: Left Arm, Right Arm, Left Leg, Right Leg Gait: Deferred Imaging - Results Cat Scan: Report Reviewed, Image Reviewed (old area of encephalomalacea left parietal) Problem List - Problems (1) Abdominal pain Code(s): R10.9 - UNSPECIFIED ABDOMINAL PAIN (2) Gastroenteritis Code(s): K52.9 - NONINFECTIVE GASTROENTERITIS AND COLITIS, UNSPECIFIED (3) HLD (hyperlipidemia) Code(s): E78.5 - HYPERLIPIDEMIA, UNSPECIFIED (4) Hemodialysis patient Code(s): Z99.2 - DEPENDENCE ON RENAL DIALYSIS (5) History of CVA (cerebrovascular accident) Code(s): Z86.73 - PRSNL HX OF TIA (TIA), AND CEREB INFRC W/O RESID DEFICITS (6) Hypoxia Code(s): R09.02 - HYPOXEMIA (7) TIA (transient ischemic attack) Code(s): G45.9 - TRANSIENT CEREBRAL ISCHEMIC ATTACK, UNSPECIFIED (8) CAD (coronary artery disease) Code(s): I25.10 - ATHSCL HEART DISEASE OF [place] CORONARY ARTERY W/O ANG PCTRS Qualifiers: Coronary Disease-Associated Artery/Lesion type: unspecified vessel or lesion type Associated angina: angina presence unspecified (9) CHF (congestive heart failure) Code(s): I50.9 - HEART FAILURE, UNSPECIFIED Qualifiers: Heart failure type: systolic Heart failure chronicity: acute on chronic Qualified Code(s): I50.23 - Acute on chronic systolic (congestive) heart failure (10) CKD (chronic kidney disease) stage 4, GFR 15-29 ml/min Code(s): N18.4 - CHRONIC KIDNEY DISEASE, STAGE 4 (SEVERE) Assessment/Plan Transient dysarthria very non-specific, likely related to drop in blood pressure and global hypoperfusion. No new lesion on CT. F/U carotid doppler. If this is negative, I don't think further neurologic evaluation is warranted at this point. Thanks.
--- NOTE | 2019-08-19 16:16 | PN ---
Progress Note (short form) - Note Progress Note: Renal consult for ESRD on HD Seen and examined at the bedside awake and alert offers no acute complaints denies any sob, cp, fever, chills, N/V/D weakness improved s/p dialysis yesterday Vital Signs Temperature 98 F 08/19/19 14:00 Pulse Rate 72 08/19/19 14:00 Respiratory Rate 20 08/19/19 14:00 Blood Pressure 114/68 08/19/19 14:00 O2 Sat by Pulse Oximetry (%) 98 08/19/19 09:00 Intake & Output 08/16/19 08/17/19 08/18/19 08/19/19 23:59 23:59 23:59 23:59 Intake Total 600 400 Output Total 3000 Balance -2400 400 Weight 110.223 kg 107.955 kg 107.728 kg NAD neck supple no JVD RRR, no M/R/G CTA, no rales or wheeze soft NT/ND, no rebound or guarding no CVA tenderness no Bladder distension trace LE edema, no cyanosis or clubbing right chest wall HD catheter CBC, BMP 08/19/19 06:10 08/19/19 06:10 Current Medications Aspirin (Ecotrin -) 81 mg PO DAILY [facility] Last Admin: 08/19/19 11:43 Dose: 81 mg Atorvastatin Calcium (Lipitor -) 80 mg PO HS [facility] Last Admin: 08/18/19 21:41 Dose: 80 mg Clopidogrel Bisulfate (Plavix -) 75 mg PO DAILY [facility] Last Admin: 08/19/19 11:43 Dose: 75 mg Ergocalciferol (Drisdol -) 50,000 unit PO WEEKLY [facility] Heparin Sodium (Porcine) (Heparin -) 5,000 unit SQ TID [facility] Last Admin: 08/19/19 13:56 Dose: 5,000 unit Sodium Chloride (Normal Saline -) 1,000 mls @ 100 mls/hr IV ASDIR [facility] Last Admin: 08/18/19 21:41 Dose: 100 mls/hr Insulin Aspart (Novolog Vial Sliding Scale -) 1 vial SQ ACHS [facility]; Protocol Last Admin: 08/19/19 11:48 Dose: Not Given Labetalol HCl (Normodyne -) 200 mg PO BID [facility] Last Admin: 08/19/19 11:43 Dose: 200 mg Losartan Potassium (Cozaar -) 50 mg PO DAILY [facility] Last Admin: 08/19/19 11:42 Dose: 50 mg Nifedipine (Procardia Xl -) 60 mg PO DAILY [facility] Last Admin: 08/19/19 11:44 Dose: 60 mg Pantoprazole Sodium (Protonix -) 40 mg PO DAILY [facility] Last Admin: 08/19/19 11:43 Dose: 40 mg Tamsulosin HCl (Flomax -) 0.4 mg PO DAILY@0830 [facility] Last Admin: 08/19/19 11:42 Dose: 0.4 mg 59 year old gentleman with history of ESRD on HD, DM2, hypertension, CHF, CAD, CVA who presented from home with complaints of nausea/ vomiting, abdominal pain and shortness of breath with cough. 1. Nausea and vomiting with Abdominal pain 2. Cough 3. ESRD on HD 4. Hypertension 5. Hx of CHF with evidence of mild congestion on CXR 6. Anemia in setting of CKD 7. Renal Osteodystrophy 8. TIA vs. CVA No acute need for dialysis today, next planned dialysis is Friday CT head negative, carotid doppler w/o significant stenosis CT of the Abd/Pelvis w/o significant pathology. Etiology of N/V unclear. Could possibly be gastroparesis. Will give RICHARD with HD for anemia. Trend Phos levels Renal diet if tolerated 1.2L fluid restriction Thank you Mansoor Quiroz DO
[2019-08-19] MEDS ORDERED: INSULIN (NOVOLOG) ASPART 100 UNITS/ML 10ML VIAL ONE (20:34)
[2019-08-19] MEDS: ATORVASTATIN CA 80 MG TABLET (FP) PO SCH (21:49)
[2019-08-19] MEDS ORDERED: ATORVASTATIN CA 80 MG TABLET (FP) PO ONE (22:00)
[2019-08-19 22:43] LABS: EPI CELLS 5.8 /HPF (0-5/HPF); HYALINE CASTS 46 /lpf (0-8); URINE APPEARANCE CLOUDY; URINE BACTERIA 18.9 /hpf (NEGATIVE); URINE BILIRUBIN NEGATIVE (NEGATIVE); URINE COLOR YELLOW; URINE GLUCOSE (UA) 2+ (NEGATIVE); URINE KETONE NEGATIVE (NEGATIVE); URINE LEUK ESTERASE NEGATIVE (NEGATIVE); URINE NITRITE NEGATIVE (NEGATIVE); URINE PROTEIN 4+ (NEGATIVE); URINE RBC 17 /hpf (0-4); URINE UROBILINOGEN 0.2 mg/dL (0.2-1.0)
[2019-08-20] MEDS: HEPARIN NA (PORCINE) 5,000 UNITS/ML 1ML VIAL SQ SCH ×3 (06:32→21:40)
[2019-08-20] MEDS: INSULIN SLIDING SCALE (NOVOLOG) 1 VIAL SQ SCH ×4 (06:35→21:47)
[2019-08-20 08:42] LABS: BASO % 0.8 % (0-2.0); EOS % 4.2 % (0-4.5); HEMATOCRIT 26.1 % (35.4-49); HEMOGLOBIN 8.5 GM/dL (11.7-16.9); LYMPH % 23.2 % (8-40); MCH 28.6 pg (25.7-33.7); MCHC 32.4 g/dl (32.0-35.9); MEAN CELL VOLUME 88.3 fl (80-96); MEAN PLT VOLUME 7.7 fl (7.5-11.1); MONO % 10.2 % (3.8-10.2); NEUT % 61.6 % (42.8-82.8); PLATELET COUNT 180 K/MM3 (134-434); RBC 2.95 M/mm3 (4.00-5.60); RDW 13.8 % (11.9-15.9); WHITE BLOOD COUNT 5.5 K/mm3 (4.0-10.0)
[2019-08-20 09:05] LABS: ALBUMIN 2.5 g/dl (3.4-5.0); BILIRUBIN,TOTAL 0.4 mg/dL (0.2-1); BLOOD UREA NITROGEN 54.9 mg/dL (7-18); CREATININE 6.4 mg/dL (0.55-1.3); MAGNESIUM 2.3 mg/dL (1.8-2.4); PHOSPHOROUS 2.8 mg/dL (2.5-4.9); TOT PROT 5.9 g/dl (6.4-8.2)
[2019-08-20] MEDS: PANTOPRAZOLE 40 MG TABLET PO SCH (10:51)
[2019-08-20] MEDS: TAMSULOSIN HCL 0.4 MG CAP PO SCH (10:51)
[2019-08-20] MEDS: ASPIRIN COATED 81 MG TABLET.EC PO SCH (10:52)
[2019-08-20] MEDS: LABETALOL HCL 200 MG TABLET (FP) PO SCH ×2 (10:52→21:40)
[2019-08-20] MEDS: CLOPIDOGREL BISULFATE 75 MG TABLET (FP) PO SCH (10:52)
[2019-08-20] MEDS: LOSARTAN POTASSIUM 50 MG TABLET (FP) PO SCH (10:52)
[2019-08-20] MEDS: NIFEdipine E.R 60 MG TABLET PO SCH (10:53)
[2019-08-20] MEDS: ACETAMINOPHEN 500 MG TABLET (FP) PO PRN (14:23)
--- NOTE | 2019-08-20 14:26 | PN ---
Progress Note (short form) - Note Progress Note: Renal consult for ESRD on HD Seen and examined at the bedside awake and alert offers no acute complaints denies any sob, cp, fever, chills, N/V/D weakness resolved no abd pain Vital Signs Temperature 98.2 F 08/20/19 10:00 Pulse Rate 74 08/20/19 10:00 Respiratory Rate 18 08/20/19 10:00 Blood Pressure 158/75 08/20/19 10:00 O2 Sat by Pulse Oximetry (%) 98 08/20/19 09:00 NAD neck supple no JVD RRR, no M/R/G CTA, no rales or wheeze soft NT/ND, no rebound or guarding no CVA tenderness no Bladder distension trace LE edema, no cyanosis or clubbing right chest wall HD catheter CBC, BMP 08/20/19 07:15 08/20/19 06:00 Current Medications Acetaminophen (Tylenol -) 1,000 mg PO Q6H PRN PRN Reason: PAIN LEVEL 4 - 6 Aspirin (Ecotrin -) 81 mg PO DAILY [facility] Last Admin: 08/20/19 10:52 Dose: 81 mg Atorvastatin Calcium (Lipitor -) 80 mg PO HS [facility] Last Admin: 08/19/19 21:49 Dose: 80 mg Clopidogrel Bisulfate (Plavix -) 75 mg PO DAILY [facility] Last Admin: 08/20/19 10:52 Dose: 75 mg Ergocalciferol (Drisdol -) 50,000 unit PO Tu [facility] Heparin Sodium (Porcine) (Heparin -) 5,000 unit SQ TID [facility] Last Admin: 08/20/19 06:32 Dose: 5,000 unit Insulin Aspart (Novolog Vial Sliding Scale -) 1 vial SQ ACHS [facility]; Protocol Last Admin: 08/20/19 12:45 Dose: 2 units Labetalol HCl (Normodyne -) 200 mg PO BID [facility] Last Admin: 08/20/19 10:52 Dose: 200 mg Losartan Potassium (Cozaar -) 50 mg PO DAILY [facility] Last Admin: 08/20/19 10:52 Dose: 50 mg Nifedipine (Procardia Xl -) 60 mg PO DAILY [facility] Last Admin: 08/20/19 10:53 Dose: 60 mg Pantoprazole Sodium (Protonix -) 40 mg PO DAILY [facility] Last Admin: 08/20/19 10:51 Dose: 40 mg Tamsulosin HCl (Flomax -) 0.4 mg PO DAILY@0830 [facility] Last Admin: 08/20/19 10:51 Dose: 0.4 mg 59 year old gentleman with history of ESRD on HD, DM2, hypertension, CHF, CAD, CVA who presented from home with complaints of nausea/ vomiting, abdominal pain and shortness of breath with cough. 1. Nausea and vomiting with Abdominal pain 2. Cough 3. ESRD on HD 4. Hypertension 5. Hx of CHF with evidence of mild congestion on CXR 6. Anemia in setting of CKD 7. Renal Osteodystrophy 8. TIA vs. CVA No acute need for dialysis today, next planned dialysis is tomorrow CT head negative, carotid doppler w/o significant stenosis. For CTA of the neck to be done before next dialysis. CT of the Abd/Pelvis w/o significant pathology. Etiology of N/V unclear. Could possibly be gastroparesis. Will give RICHARD with HD for anemia. Trend Phos levels Renal diet if tolerated 1.2L fluid restriction Thank you Mansoor Quiroz DO
--- NOTE | 2019-08-20 18:35 | PN ---
Progress Note, Physician Chief Complaint: Pt without complaints. Wants to go home. Pending CTA to r/o carotid stenosis History of Present Illness: 59 y.o. M PMH ESRD (on HD /fri, missed today's HD), CAD, CHF, CVA in 2018, DM, HTN, HLD, schizophrenia presenting with acute gastroenteritis.While in ED pt became confused with left facial droop more pronounced (previous CVA with mild left facial droop) and UE weakness that resolved after 30min - Current Medication List Current Medications: Active Medications Acetaminophen (Tylenol -) 1,000 mg PO Q6H PRN PRN Reason: PAIN LEVEL 4 - 6 Last Admin: 08/20/19 14:23 Dose: 1,000 mg Aspirin (Ecotrin -) 81 mg PO DAILY [facility] Last Admin: 08/20/19 10:52 Dose: 81 mg Atorvastatin Calcium (Lipitor -) 80 mg PO HS [facility] Last Admin: 08/19/19 21:49 Dose: 80 mg Clopidogrel Bisulfate (Plavix -) 75 mg PO DAILY [facility] Last Admin: 08/20/19 10:52 Dose: 75 mg Epoetin [place] (Procrit -) 20,000 unit IVPUSH ONCE ONE Stop: 08/21/19 06:01 Ergocalciferol (Drisdol -) 50,000 unit PO Tu [facility] Heparin Sodium (Porcine) (Heparin -) 5,000 unit SQ TID [facility] Last Admin: 08/20/19 14:25 Dose: 5,000 unit Heparin Sodium (Porcine) (Heparin -) 300 unit IVPUSH Q1H [facility] Stop: 08/21/19 08:01 Sodium Chloride (Normal Saline -) 250 mls @ 3,000 mls/hr IV PRN PRN PRN Reason: Hypotension during Dialysis Stop: 08/21/19 14:26 Insulin Aspart (Novolog Vial Sliding Scale -) 1 vial SQ ACHS [facility]; Protocol Last Admin: 08/20/19 17:59 Dose: Not Given Labetalol HCl (Normodyne -) 200 mg PO BID [facility] Last Admin: 08/20/19 10:52 Dose: 200 mg Losartan Potassium (Cozaar -) 50 mg PO DAILY [facility] Last Admin: 08/20/19 10:52 Dose: 50 mg Nifedipine (Procardia Xl -) 60 mg PO DAILY [facility] Last Admin: 02/14/20 10:53 Dose: 60 mg Pantoprazole Sodium (Protonix -) 40 mg PO DAILY [facility] Last Admin: 08/20/19 10:51 Dose: 40 mg Tamsulosin HCl (Flomax -) 0.4 mg PO DAILY@0830 [facility] Last Admin: 08/20/19 10:51 Dose: 0.4 mg - Objective Vital Signs: Vital Signs Temperature 98.1 F 08/20/19 16:30 Pulse Rate 73 08/20/19 16:30 Respiratory Rate 20 08/20/19 16:30 Blood Pressure 123/67 08/20/19 16:30 O2 Sat by Pulse Oximetry (%) 98 08/20/19 09:00 Labs: CBC, BMP 08/20/19 07:15 08/20/19 06:00 Problem List - Problems (1) Hemodialysis patient Assessment/Plan: On HD schedule as per by Dr Quiroz Code(s): Z99.2 - DEPENDENCE ON RENAL DIALYSIS (2) History of CVA (cerebrovascular accident) Assessment/Plan: residual facial droop noted, extrem weakness c/w PT fall precautions Code(s): Z86.73 - PRSNL HX OF TIA (TIA), AND CEREB INFRC W/O RESID DEFICITS (3) HLD (hyperlipidemia) Assessment/Plan: c/w statin 80mg Code(s): E78.5 - HYPERLIPIDEMIA, UNSPECIFIED (4) Schizophrenia Assessment/Plan: supportive care no psych meds at [facility] Code(s): F20.9 - SCHIZOPHRENIA, UNSPECIFIED (5) Abdominal pain Assessment/Plan: CT scan without acute pathology resolved Code(s): R10.9 - UNSPECIFIED ABDOMINAL PAIN (6) CAD (coronary artery disease) Assessment/Plan: c/w statin, asa, BB Code(s): I25.10 - ATHSCL HEART DISEASE OF [place] CORONARY ARTERY W/O ANG PCTRS Qualifiers: Coronary Disease-Associated Artery/Lesion type: unspecified vessel or lesion type Associated angina: angina presence unspecified (7) CHF (congestive heart failure) Assessment/Plan: daily weights strict I/Os Code(s): I50.9 - HEART FAILURE, UNSPECIFIED Qualifiers: Heart failure type: systolic Heart failure chronicity: acute on chronic Qualified Code(s): I50.23 - Acute on chronic systolic (congestive) heart failure (8) Hypertension Assessment/Plan: controlled HD as per renal c/w losartan,procardia continue to monitor Code(s): I10 - ESSENTIAL (PRIMARY) HYPERTENSION Qualifiers: Hypertension type: unspecified Qualified Code(s): I10 - Essential (primary ) hypertension (9) Gastroenteritis Assessment/Plan: CT without acute findings tolerating clear diet, will advance anti-emetics as needed Code(s): K52.9 - NONINFECTIVE GASTROENTERITIS AND COLITIS, UNSPECIFIED (10) Normocytic anemia Assessment/Plan: -likely due to chronic renal disease stable -monitor cbc Code(s): D64.9 - ANEMIA, UNSPECIFIED (11) TIA (transient ischemic attack) Assessment/Plan: neuro status back to carotid dopplers with stenosis noted CTA after HD c/w asa 81mg , plavix monitor on tele Code(s): G45.9 - TRANSIENT CEREBRAL ISCHEMIC ATTACK, UNSPECIFIED Visit type - Emergency Visit Emergency Visit: Yes ED Registration Date: 08/17/19 Care time: The patient presented to the Emergency Department on the above date and was hospitalized for further evaluation of their emergent condition. - New Patient This patient is new to me today: No - Critical Care Critical Care patient: No - Discharge Referral Referred to [facility] Med P.C.: No
[2019-08-20] MEDS: ATORVASTATIN CA 80 MG TABLET (FP) PO SCH (21:40)
[2019-08-21] MEDS: HEPARIN NA (PORCINE) 5,000 UNITS/ML 1ML VIAL SQ SCH ×3 (05:52→21:12)
[2019-08-21] MEDS: INSULIN SLIDING SCALE (NOVOLOG) 1 VIAL SQ SCH ×4 (06:22→22:10)
[2019-08-21] MEDS: LABETALOL HCL 200 MG TABLET (FP) PO SCH ×2 (09:02→21:13)
[2019-08-21] MEDS: CLOPIDOGREL BISULFATE 75 MG TABLET (FP) PO SCH (09:02)
[2019-08-21] MEDS: TAMSULOSIN HCL 0.4 MG CAP PO SCH (09:02)
[2019-08-21] MEDS: LOSARTAN POTASSIUM 50 MG TABLET (FP) PO SCH (09:03)
[2019-08-21] MEDS: PANTOPRAZOLE 40 MG TABLET PO SCH (09:03)
[2019-08-21] MEDS: NIFEdipine E.R 60 MG TABLET PO SCH (09:03)
[2019-08-21] MEDS: ASPIRIN COATED 81 MG TABLET.EC PO SCH (09:03)
--- NOTE | 2019-08-21 09:42 | PN ---
Progress Note (short form) - Note Progress Note: RENAL pt seen and examined has no complaints says his kidney function improved so he only gets hd 2x per week has a permcath on right neck for hd Last Vital Signs Temp Pulse Resp BP Pulse Ox 97.9 F 73 18 153/73 98 08/20/19 22:00 08/20/19 22:00 08/20/19 22:00 08/20/19 22:00 08/20/19 21:00 lungs are clear cvs s1s2 rr abd soft ext no edema, is missing a hallux after amputation neuro a+ox3 CBC, BMP 08/20/19 07:15 08/20/19 06:00 Current Medications Generic Name Dose Route Start Last Admin Trade Name Freq PRN Reason Stop Dose Admin Acetaminophen 1,000 mg 08/20/19 13:51 08/20/19 14:23 Tylenol - PO 1,000 mg Q6H PRN Administration PAIN LEVEL 4 - 6 Aspirin 81 mg 08/19/19 10:00 08/21/19 09:03 Ecotrin - PO 81 mg DAILY SANGEETHA Administration Atorvastatin Calcium 80 mg 08/18/19 22:00 08/20/19 21:40 Lipitor - PO 80 mg HS SANGEETHA Administration Clopidogrel Bisulfate 75 mg 08/18/19 10:00 08/21/19 09:02 Plavix - PO 75 mg DAILY SANGEETHA Administration Epoetin Uche 20,000 unit 08/21/19 06:00 Procrit - IVPUSH 08/21/19 06:01 ONCE ONE Ergocalciferol 50,000 unit 08/24/19 10:00 Drisdol - PO Tu [facility] Heparin Sodium (Porcine) 5,000 unit 08/17/19 22:00 08/21/19 05:52 Heparin - SQ 5,000 unit TID SANGEETHA Administration Heparin Sodium (Porcine) 300 unit 08/21/19 06:00 Heparin - IVPUSH 08/21/19 08:01 Q1H SANGEETHA Sodium Chloride 250 mls @ 3,000 mls/hr 08/20/19 14:25 Normal Saline - IV 08/21/19 14:26 PRN PRN Hypotension during Dialysis Insulin Aspart 1 vial 08/18/19 07:00 08/21/19 06:22 Novolog Vial Sliding Scale - SQ Not Given ACHS [facility] Protocol Labetalol HCl 200 mg 08/18/19 10:00 08/21/19 09:02 Normodyne - PO 200 mg BID SANGEETHA Administration Losartan Potassium 50 mg 08/18/19 10:00 08/21/19 09:03 Cozaar - PO 50 mg DAILY SANGEETHA Administration Nifedipine 60 mg 08/18/19 10:00 08/21/19 09:03 Procardia Xl - PO 60 mg DAILY SANGEETHA Administration Pantoprazole Sodium 40 mg 08/19/19 10:00 08/21/19 09:03 Protonix - PO 40 mg DAILY SANGEETHA Administration Tamsulosin HCl 0.4 mg 08/18/19 08:30 08/21/19 09:02 Flomax - PO 0.4 mg DAILY@0830 SANGEETHA Administration 59 year old gentleman with history of ESRD on HD, DM2, hypertension, CHF, CAD, CVA who presented from home with complaints of nausea/ vomiting, abdominal pain and shortness of breath with cough. 1. Nausea and vomiting with Abdominal pain 2. Cough 3. ESRD on HD 4. Hypertension 5. Hx of CHF with evidence of mild congestion on CXR 6. Anemia in setting of CKD 7. Renal Osteodystrophy 8. TIA vs. CVA 9.microscopic hematuria For HD today after CTA- orders rebviewed should have urology eval of hematuria at some point unless already done RICHARD being given BP seems acceptable MV
--- NOTE | 2019-08-21 09:50 | PN ---
Physical Exam: SUBJECTIVE: Patient seen and examined. He has no complaints. OBJECTIVE: Vital Signs Period Temp Pulse Resp BP Sys/Lopez Pulse Ox Last 24 Hr 97.9 F-98.2 F 73-74 18-20 100-158/62-75 98 GENERAL: The patient is awake, alert, and fully oriented, in no acute distress. LUNGS: Breath sounds equal, clear to auscultation bilaterally, no wheezes, no crackles, no accessory muscle use. HEART: Regular rate and rhythm, S1, S2 without murmur, rub or gallop. ABDOMEN: Soft, nontender, nondistended, normoactive bowel sounds, no guarding, no rebound, no hepatosplenomegaly, no masses. EXTREMITIES: 2+ pulses, warm, well-perfused, no edema. Laboratory Results - last 24 hr 08/20/19 08/20/19 08/20/19 12:41 17:58 21:43 POC Glucometer 174 138 136 08/21/19 05:54 POC Glucometer 110 Active Medications Generic Name Dose Route Start Last Admin Trade Name Julianoq PRN Reason Stop Dose Admin Acetaminophen 1,000 mg 08/20/19 13:51 08/20/19 14:23 Tylenol - PO 1,000 mg Q6H PRN Administration PAIN LEVEL 4 - 6 Aspirin 81 mg 08/19/19 10:00 08/21/19 09:03 Ecotrin - PO 81 mg DAILY SANGEETHA Administration Atorvastatin Calcium 80 mg 08/18/19 22:00 08/20/19 21:40 Lipitor - PO 80 mg HS SANGEETHA Administration Clopidogrel Bisulfate 75 mg 08/18/19 10:00 08/21/19 09:02 Plavix - PO 75 mg DAILY SANGEETHA Administration Epoetin Uche 20,000 unit 08/21/19 06:00 Procrit - IVPUSH 08/21/19 06:01 ONCE ONE Ergocalciferol 50,000 unit 08/24/19 10:00 Drisdol - PO Tu [facility] Heparin Sodium (Porcine) 5,000 unit 08/17/19 22:00 08/21/19 05:52 Heparin - SQ 5,000 unit TID SANGEETHA Administration Heparin Sodium (Porcine) 300 unit 08/21/19 06:00 Heparin - IVPUSH 08/21/19 08:01 Q1H [facility] Sodium Chloride 250 mls @ 3,000 mls/hr 08/20/19 14:25 Normal Saline - IV 08/21/19 14:26 PRN PRN Hypotension during Dialysis Insulin Aspart 1 vial 08/18/19 07:00 08/21/19 06:22 Novolog Vial Sliding Scale - SQ Not Given ACHS SANGEETHA Protocol Labetalol HCl 200 mg 08/18/19 10:00 08/21/19 09:02 Normodyne - PO 200 mg BID SANGEETHA Administration Losartan Potassium 50 mg 08/18/19 10:00 08/21/19 09:03 Cozaar - PO 50 mg DAILY SANGEETHA Administration Nifedipine 60 mg 08/18/19 10:00 08/21/19 09:03 Procardia Xl - PO 60 mg DAILY SANGEETHA Administration Pantoprazole Sodium 40 mg 08/19/19 10:00 08/21/19 09:03 Protonix - PO 40 mg DAILY SANGEETHA Administration Tamsulosin HCl 0.4 mg 08/18/19 08:30 08/21/19 09:02 Flomax - PO 0.4 mg DAILY@0830 SANGEETHA Administration ASSESSMENT/PLAN: This is a 59 year old man with a history of ESRD, HTN, CHF, CAD, type 2 DM, CVA , schizophrenia who presented to the ED with nausea/vomiting, abdominal pain, shortness of breath, and cough. 1. Acute gastroenteritis - Improved - Tolerating diet 2. Hypokalemia 3. Hypophosphatemia 4. Hypertensive emergency - Resolved 5. Syncope with dysarthria - Head CT shows focal encephalomalacia in left frontal lobe, no acute infarct - Carotid dopplers show moderate to large calcified plaques in right carotid bulb and proximal ICA, small to moderate calcified plaques on left - CTA of neck pending 6. HTN - Continue Procardia XL, Labetalol, Cozaar 7. CAD - Continue aspirin, Plavix, Lipitor 8. History of CHF - Echo shows moderate concentric LVH, LVEF 50%, normal LV filling, moderate pulm HTN, pleural effusion 9. ESRD - Continue HD as per nephrology 10. Anemia secondary to CKD - Procrit with HD 11. Type 2 DM - Continue Novolog sliding scale 12. Schizophrenia 13. History of CVA - Continue aspirin, Plavix, Lipitor Visit type - Emergency Visit Emergency Visit: Yes ED Registration Date: 08/17/19 Care time: The patient presented to the Emergency Department on the above date and was hospitalized for further evaluation of their emergent condition. - New Patient This patient is new to me today: Yes Date on this admission: 08/21/19 - Critical Care Critical Care patient: No - Discharge Referral Referred to [facility] Med P.C.: No
[2019-08-21] MEDS ORDERED: SODIUM CHLORIDE 250 ML IV PRN (12:29)
[2019-08-21] MEDS ORDERED: EPOETIN ALFA 20,000 UNIT/1 ML VIAL IVPUSH ONE (12:30)
[2019-08-21 13:42] LABS: HEMATOCRIT 25.7 % (35.4-49); HEMOGLOBIN 8.4 GM/dL (11.7-16.9); MCH 28.9 pg (25.7-33.7); MCHC 32.7 g/dl (32.0-35.9); MEAN CELL VOLUME 88.5 fl (80-96); MEAN PLT VOLUME 7.8 fl (7.5-11.1); PLATELET COUNT 161 K/MM3 (134-434); RDW 13.9 % (11.9-15.9); WHITE BLOOD COUNT 5.5 K/mm3 (4.0-10.0)
[2019-08-21] MEDS: HEPARIN NA (PORCINE) 5,000 UNITS/ML 1ML VIAL IVPUSH SCH ×3 (13:56→15:14)
[2019-08-21 14:05] LABS: BLOOD UREA NITROGEN 50.2 mg/dL (7-18); CALCIUM 7.2 mg/dL (8.5-10.1); CREATININE 5.8 mg/dL (0.55-1.3); PHOSPHOROUS 1.9 mg/dL (2.5-4.9); POTASSIUM 3.4 mmol/L (3.5-5.1)
[2019-08-21] MEDS: ATORVASTATIN CA 80 MG TABLET (FP) PO SCH (21:13)
[2019-08-22] MEDS: HEPARIN NA (PORCINE) 5,000 UNITS/ML 1ML VIAL SQ SCH ×2 (06:19→16:56)
[2019-08-22] MEDS: INSULIN SLIDING SCALE (NOVOLOG) 1 VIAL SQ SCH ×3 (06:24→17:00)
--- NOTE | 2019-08-22 08:46 | PN ---
Progress Note, Physician History of Present Illness: 59 y.o. M PMH ESRD (on HD /fri, missed today's HD), CAD, CHF, CVA in 2018, DM, HTN, HLD, schizophrenia presenting with acute gastroenteritis.While in ED pt became confused with left facial droop more pronounced (previous CVA with mild left facial droop) and UE weakness that resolved after 30min - Current Medication List Current Medications: Active Medications Acetaminophen (Tylenol -) 1,000 mg PO Q6H PRN PRN Reason: PAIN LEVEL 4 - 6 Last Admin: 08/20/19 14:23 Dose: 1,000 mg Aspirin (Ecotrin -) 81 mg PO DAILY [facility] Last Admin: 08/21/19 09:03 Dose: 81 mg Atorvastatin Calcium (Lipitor -) 80 mg PO HS [facility] Last Admin: 08/21/19 21:13 Dose: 80 mg Clopidogrel Bisulfate (Plavix -) 75 mg PO DAILY [facility] Last Admin: 08/21/19 09:02 Dose: 75 mg Ergocalciferol (Drisdol -) 50,000 unit PO [facility] Heparin Sodium (Porcine) (Heparin -) 5,000 unit SQ TID [facility] Last Admin: 08/22/19 06:19 Dose: 5,000 unit Insulin Aspart (Novolog Vial Sliding Scale -) 1 vial SQ [facility]; Protocol Last Admin: 08/22/19 06:24 Dose: Not Given Labetalol HCl (Normodyne -) 200 mg PO BID [facility] Last Admin: 08/21/19 21:13 Dose: 200 mg Losartan Potassium (Cozaar -) 50 mg PO DAILY [facility] Last Admin: 08/21/19 09:03 Dose: 50 mg Nifedipine (Procardia Xl -) 60 mg PO DAILY [facility] Last Admin: 08/21/19 09:03 Dose: 60 mg Pantoprazole Sodium (Protonix -) 40 mg PO DAILY [facility] Last Admin: 08/21/19 09:03 Dose: 40 mg Tamsulosin HCl (Flomax -) 0.4 mg PO DAILY@0830 [facility] Last Admin: 08/21/19 09:02 Dose: 0.4 mg - Objective Vital Signs: Vital Signs Temperature 98.5 F 08/21/19 22:00 Pulse Rate 77 08/21/19 22:00 Respiratory Rate 18 08/21/19 22:00 Blood Pressure 158/81 08/21/19 22:00 O2 Sat by Pulse Oximetry (%) 99 08/21/19 21:00 Additional Findings/Remarks: Constitutional: Yes: Well Nourished, No Distress, Calm Eyes: Yes: WNL, Conjunctiva Clear HENT: Yes: WNL, Atraumatic, Normocephalic Neck: Yes: WNL, Supple, Trachea Midline Cardiovascular: Yes: WNL, Regular Rate and Rhythm Respiratory: Yes: WNL, Regular, CTA Bilaterally Gastrointestinal: Yes: WNL, Normal Bowel Sounds, Soft, Tenderness, Epigastrium ( resolved) ...Rectal Exam: Yes: Deferred Genitourinary: Yes: Other (on HD, states he makes some urine. HD cath to right chest wall. No reddness/tenderness) Breast(s): Yes: WNL Musculoskeletal: Yes: WNL Extremities: Yes: WNL Edema: Yes Edema: LLE: Trace, RLE: Trace Peripheral Pulses WNL: Yes Peripheral Pulses: Left Radial: 2+, Right Radial: 2+, Left Doralis Pedis: 2+, Right Dorsalis Pedis: 2+, Left Femoral: 2+, Right Femoral: 2+ Integumentary: Yes: WNL Neurological: Yes: WNL, Alert, Oriented, Confusion (resolved. mild existing facial droop to corner of mouth. No wekness, now resolved), Facial Droop ( existing) ...Motor Strength: WNL Psychiatric: Yes: WNL Labs: CBC, BMP 08/21/19 12:30 08/21/19 12:30 - ....Imaging Ultrasound: Report Reviewed (Renal:no hydro) Problem List - Problems (1) Hemodialysis patient Code(s): Z99.2 - DEPENDENCE ON RENAL DIALYSIS (2) History of CVA (cerebrovascular accident) Code(s): Z86.73 - PRSNL HX OF TIA (TIA), AND CEREB INFRC W/O RESID DEFICITS (3) HLD (hyperlipidemia) Code(s): E78.5 - HYPERLIPIDEMIA, UNSPECIFIED (4) Schizophrenia Code(s): F20.9 - SCHIZOPHRENIA, UNSPECIFIED (5) Abdominal pain Code(s): R10.9 - UNSPECIFIED ABDOMINAL PAIN (6) CAD (coronary artery disease) Code(s): I25.10 - ATHSCL HEART DISEASE OF [place] CORONARY ARTERY W/O ANG PCTRS Qualifiers: Coronary Disease-Associated Artery/Lesion type: unspecified vessel or lesion type Associated angina: angina presence unspecified (7) CHF (congestive heart failure) Code(s): I50.9 - HEART FAILURE, UNSPECIFIED Qualifiers: Heart failure type: systolic Heart failure chronicity: acute on chronic Qualified Code(s): I50.23 - Acute on chronic systolic (congestive) heart failure (8) Hypertension Code(s): I10 - ESSENTIAL (PRIMARY) HYPERTENSION Qualifiers: Hypertension type: unspecified Qualified Code(s): I10 - Essential (primary ) hypertension (9) Gastroenteritis Code(s): K52.9 - NONINFECTIVE GASTROENTERITIS AND COLITIS, UNSPECIFIED (10) Normocytic anemia Code(s): D64.9 - ANEMIA, UNSPECIFIED (11) TIA (transient ischemic attack) Code(s): G45.9 - TRANSIENT CEREBRAL ISCHEMIC ATTACK, UNSPECIFIED
[2019-08-22 09:01] LABS: HEMATOCRIT 27.1 % (35.4-49); HEMOGLOBIN 8.9 GM/dL (11.7-16.9); MCH 29.2 pg (25.7-33.7); MCHC 32.7 g/dl (32.0-35.9); MEAN CELL VOLUME 89.2 fl (80-96); MEAN PLT VOLUME 7.8 fl (7.5-11.1); PLATELET COUNT 187 K/MM3 (134-434); RBC 3.03 M/mm3 (4.00-5.60); WHITE BLOOD COUNT 6.7 K/mm3 (4.0-10.0)
[2019-08-22 09:30] LABS: BLOOD UREA NITROGEN 40.6 mg/dL (7-18); CALCIUM 7.3 mg/dL (8.5-10.1); CREATININE 5.3 mg/dL (0.55-1.3); PHOSPHOROUS 2.7 mg/dL (2.5-4.9); POTASSIUM 3.9 mmol/L (3.5-5.1)
[2019-08-22] MEDS: PANTOPRAZOLE 40 MG TABLET PO SCH (09:36)
[2019-08-22] MEDS: CLOPIDOGREL BISULFATE 75 MG TABLET (FP) PO SCH (09:36)
[2019-08-22] MEDS: ACETAMINOPHEN 500 MG TABLET (FP) PO PRN (09:36)
[2019-08-22] MEDS: TAMSULOSIN HCL 0.4 MG CAP PO SCH (09:37)
[2019-08-22] MEDS: LABETALOL HCL 200 MG TABLET (FP) PO SCH (09:38)
[2019-08-22] MEDS: NIFEdipine E.R 60 MG TABLET PO SCH (09:38)
[2019-08-22] MEDS: LOSARTAN POTASSIUM 50 MG TABLET (FP) PO SCH (09:38)
[2019-08-22] MEDS: ASPIRIN COATED 81 MG TABLET.EC PO SCH (09:38)
--- NOTE | 2019-08-22 17:39 | DS ---
Physical Exam: SUBJECTIVE: Patient seen and examined 59 y.o. M PMH ESRD (on HD tues/sat, missed today's HD), CAD, CHF, CVA in 2018, DM, HTN, HLD, schizophrenia presenting with acute gastroenteritis.While in ED pt became confused with left facial droop more pronounced (previous CVA with mild left facial droop) and UE weakness that resolved after 30min OBJECTIVE: Vital Signs Period Temp Pulse Resp BP Sys/Lopez Pulse Ox Last 24 Hr 98.3 F-98.5 F 69-77 18-20 110-197/63-95 99-99 PHYSICAL EXAM Constitutional: Yes: Well Nourished, No Distress, Calm Eyes: Yes: WNL, Conjunctiva Clear HENT: Yes: WNL, Atraumatic, Normocephalic Neck: Yes: WNL, Supple, Trachea Midline Cardiovascular: Yes: WNL, Regular Rate and Rhythm Respiratory: Yes: WNL, Regular, CTA Bilaterally Gastrointestinal: Yes: WNL, Normal Bowel Sounds, Soft, Tenderness, Epigastrium ( resolved) ...Rectal Exam: Yes: Deferred Genitourinary: Yes: Other (on HD, states he makes some urine. HD cath to right chest wall. No reddness/tenderness) Breast(s): Yes: WNL Musculoskeletal: Yes: WNL Extremities: Yes: WNL Edema: Yes Edema: LLE: Trace, RLE: Trace Peripheral Pulses WNL: Yes Peripheral Pulses: Left Radial: 2+, Right Radial: 2+, Left Doralis Pedis: 2+, Right Dorsalis Pedis: 2+, Left Femoral: 2+, Right Femoral: 2+ Integumentary: Yes: WNL Neurological: Yes: WNL, Alert, Oriented, Confusion (resolved. mild existing facial droop to corner of mouth. No weakness, now resolved), Facial Droop ( existing) ...Motor Strength: WNL Psychiatric: Yes: WNL LABS Laboratory Results - last 24 hr 08/21/19 08/22/19 08/22/19 22:08 06:22 08:18 WBC 6.7 RBC 3.03 L Hgb 8.9 L Hct 27.1 L MCV 89.2 MCH 29.2 MCHC 32.7 RDW 14.0 Plt Count 187 MPV 7.8 Sodium Potassium Chloride Carbon Dioxide Anion Gap BUN Creatinine Est GFR (CKD-EPI)AfAm Est GFR (CKD-EPI)NonAf POC Glucometer 166 97 Random Glucose Calcium Phosphorus Magnesium 08/22/19 08/22/19 08/22/19 08:18 12:07 16:58 WBC RBC Hgb Hct MCV MCH MCHC RDW Plt Count MPV Sodium 141 Potassium 3.9 Chloride 106 Carbon Dioxide 31 Anion Gap 4 L BUN 40.6 H Creatinine 5.3 H Est GFR (CKD-EPI)AfAm 12.75 Est GFR (CKD-EPI)NonAf 11.00 POC Glucometer 198 159 Random Glucose 115 H Calcium 7.3 L Phosphorus 2.7 Magnesium 2.0 HOSPITAL COURSE: Date of Admission:08/17/19 Date of Discharge: 08/22/19 Problem List - ....Imaging Chest X-ray: Report Reviewed (Single AP view of the chest has been submitted. Since 07/05/2019 and again noted is the fluid with atelectasis or infiltrate at the left base with prominent mediastinum, fluid in the horizontal fissure, minimal congestive changes and right jugular line with tip at junction of SVC and right atrium. Correlation recommended.) Cat Scan: Report Reviewed (n comparison to a prior CT study of 06/22/2019 note is again made of moderate left-sided and small right-sided pleural effusion layering posteriorly. There is mild, increased concentric subcutaneous soft tissue stranding along the abdomen and pelvis consistent with fluid retention. No evidence of pneumoperitoneum, abscess, free intraperitoneal fluid or bowel obstruction. Cholelithiasis identified on previous exams is difficult to appreciate on the current study. No CT evidence of acute cholecystitis. There is no definite biliary tract dilatation. The partially visualized appendix demonstrates no definite abnormality. Colonic diverticulosis is noted without evidence of acute diverticulitis. There is no gross noncontrast small bowel pathology. The liver, spleen, pancreas, and adrenal glands demonstrate no obvious pathology. There is no hydronephrosis. No aortic aneurysm is seen. There is no definite lymphadenopathy on the basis of size criteria. No obvious pelvic soft tissue abnormality is noted. Small umbilical hernia containing fat and a trace amount of free fluid. There is no obvious acute osseous pathology.) Problem List - Problems (1) Hemodialysis patient Assessment/Plan: On HD c/w schedule Dr Quiroz follows Problems reviewed: Yes Code(s): Z99.2 - DEPENDENCE ON RENAL DIALYSIS (2) History of CVA (cerebrovascular accident) Assessment/Plan: residual facial droop noted, extrem weakness HCT without acute findings Code(s): Z86.73 - PRSNL HX OF TIA (TIA), AND CEREB INFRC W/O RESID DEFICITS (3) HLD (hyperlipidemia) Assessment/Plan: statin increased to 80mg Code(s): E78.5 - HYPERLIPIDEMIA, UNSPECIFIED (4) Schizophrenia Assessment/Plan: supportive care no psych meds at [facility] Code(s): F20.9 - SCHIZOPHRENIA, UNSPECIFIED (5) Abdominal pain Code(s): R10.9 - UNSPECIFIED ABDOMINAL PAIN (6) CAD (coronary artery disease) Code(s): I25.10 - ATHSCL HEART DISEASE OF [place] CORONARY ARTERY W/O ANG PCTRS Qualifiers: Coronary Disease-Associated Artery/Lesion type: unspecified vessel or lesion type Associated angina: angina presence unspecified (7) CHF (congestive heart failure) Code(s): I50.9 - HEART FAILURE, UNSPECIFIED Qualifiers: Heart failure type: systolic Heart failure chronicity: acute on chronic Qualified Code(s): I50.23 - Acute on chronic systolic (congestive) heart failure (8) Hypertension Code(s): I10 - ESSENTIAL (PRIMARY) HYPERTENSION Qualifiers: Hypertension type: unspecified Qualified Code(s): I10 - Essential (primary ) hypertension (9) Gastroenteritis Code(s): K52.9 - NONINFECTIVE GASTROENTERITIS AND COLITIS, UNSPECIFIED (10) Normocytic anemia Assessment/Plan: -likely due to chronic renal disease -Hgb/Hct 10.9/34.1 -monitor cbc Code(s): D64.9 - ANEMIA, UNSPECIFIED (11) TIA (transient ischemic attack) Assessment/Plan: seen by neurology carotid dopplers withput stenosis CTA done withput stenosis follow with neurology as outopt c/w statin 80mg qhs Code(s): G45.9 - TRANSIENT CEREBRAL ISCHEMIC ATTACK, UNSPECIFIED clincially stable for discharge back to home Minutes to complete discharge: 40 Discharge Summary Problems reviewed: Yes Reason For Visit: VOMITING,HYPOXIA Current Active Problems Abdominal pain (Acute) Gastroenteritis (Acute) HLD (hyperlipidemia) (Acute) Hemodialysis patient (Acute) History of CVA (cerebrovascular accident) (Acute) Hypoxia (Acute) Schizophrenia (Acute) TIA (transient ischemic attack) (Acute) Vomiting (Acute) Hospital Course: Problem List - Problems (1) Hemodialysis patient Assessment/Plan: On HD c/w schedule Dr Quiroz follows Problems reviewed: Yes Code(s): Z99.2 - DEPENDENCE ON RENAL DIALYSIS (2) History of CVA (cerebrovascular accident) Assessment/Plan: residual facial droop noted, extrem weakness HCT without acute findings Code(s): Z86.73 - PRSNL HX OF TIA (TIA), AND CEREB INFRC W/O RESID DEFICITS (3) HLD (hyperlipidemia) Assessment/Plan: statin increased to 80mg Code(s): E78.5 - HYPERLIPIDEMIA, UNSPECIFIED (4) Schizophrenia Assessment/Plan: supportive care no psych meds at [facility] Code(s): F20.9 - SCHIZOPHRENIA, UNSPECIFIED (5) Abdominal pain Code(s): R10.9 - UNSPECIFIED ABDOMINAL PAIN (6) CAD (coronary artery disease) Code(s): I25.10 - ATHSCL HEART DISEASE OF [place] CORONARY ARTERY W/O ANG PCTRS Qualifiers: Coronary Disease-Associated Artery/Lesion type: unspecified vessel or lesion type Associated angina: angina presence unspecified (7) CHF (congestive heart failure) Code(s): I50.9 - HEART FAILURE, UNSPECIFIED Qualifiers: Heart failure type: systolic Heart failure chronicity: acute on chronic Qualified Code(s): I50.23 - Acute on chronic systolic (congestive) heart failure (8) Hypertension Code(s): I10 - ESSENTIAL (PRIMARY) HYPERTENSION Qualifiers: Hypertension type: unspecified Qualified Code(s): I10 - Essential (primary ) hypertension (9) Gastroenteritis Code(s): K52.9 - NONINFECTIVE GASTROENTERITIS AND COLITIS, UNSPECIFIED (10) Normocytic anemia Assessment/Plan: -likely due to chronic renal disease -Hgb/Hct 10.9/34.1 -monitor cbc Code(s): D64.9 - ANEMIA, UNSPECIFIED (11) TIA (transient ischemic attack) Assessment/Plan: seen by neurology carotid dopplers withput stenosis CTA done withput stenosis follow with neurology as outopt c/w statin 80mg qhs Code(s): G45.9 - TRANSIENT CEREBRAL ISCHEMIC ATTACK, UNSPECIFIED clincially stable for discharge back to home Condition: Improved - Instructions Diet, Activity, Other Instructions: DISCHARGE YOUR VISIT You came to the hospital because you were having abdominal pain. A CTscan of your abdomen was done that was negative. While you were in the Emergency room it is possible that you had a mini stroke (TIA). A CT scan of your head was done that did not show a stroke and your arm function an level of conscience returned back to base line. A CT Angiograqm of your neck showed that there was no blockages in your neck arteries. It is recommended that you take baby asprin and a statin (cholesterol medication) every day. There was microscopic blood in your urine and you were treated 5 days with antibiotics. Follow up with Dr Quiroz. Continue your dialysis as scheduled. MEDICATIONS Please continue to take your home medications as prescribed. There was no changes to home medications. -----NEW----- apirin 81 mg (baby) you can get this over the counter if your co-pay is higher atrovastuin 80mg every night DIET Continue your home diet-renal diet, low sodium, low cholesterol ADDITIONAL CARE Please make an appointment to see your primary care provider,Dr Allen 1 week from today. Keep you dialysis as scheduled. You can follow up with your neurologist or the ones in discharge package. ADDITIONAL INFORMATION Please call 911 or come directly to the emergency department if you experience unusual headache, vision change, shortness of breath, chest pain, numbness, tingling, loss of alertness/awareness, loss of function, unusual bleeding or any alarming symptoms. Thank you for allowing me to care for you. Bill Rene, [facility], [facility] Referrals: Waldemar Eid MD [Primary Care Provider] - Mansoor Quiroz MD [Staff Physician] - Db Miller MD [Staff Physician] - 1 Month (call for appointment in 1 month ) Disposition: HOME - Home Medications Comprehensive Discharge Medication List: Ambulatory Orders Tamsulosin HCl [Flomax] 0.4 mg PO DAILY 05/10/19 Clopidogrel Bisulfate [Plavix] 75 mg PO DAILY 05/29/19 Ergocalciferol (Vitamin D2) [Vitamin D2] 50,000 unit PO WEEKLY 05/29/19 Glipizide 10 mg PO BID 05/29/19 Labetalol HCl [Normodyne -] 200 mg PO BID 05/29/19 Losartan Potassium 50 mg PO DAILY 05/29/19 Nifedipine [Procardia Xl] 60 mg PO DAILY 05/29/19 Aspirin Coated [Ecotrin -] 81 mg PO DAILY #30 tablet.ec 08/22/19 Atorvastatin Ca [Lipitor] 80 mg PO HS #30 tablet 08/22/19 Nifedipine ER [Procardia XL -] 60 mg PO DAILY tab.er.[id number] 08/22/19 Pantoprazole Sodium [Protonix -] 40 mg PO DAILY #30 tablet.ec 08/22/19 Problem List - Problems (1) Hemodialysis patient Code(s): Z99.2 - DEPENDENCE ON RENAL DIALYSIS (2) History of CVA (cerebrovascular accident) Code(s): Z86.73 - PRSNL HX OF TIA (TIA), AND CEREB INFRC W/O RESID DEFICITS (3) HLD (hyperlipidemia) Code(s): E78.5 - HYPERLIPIDEMIA, UNSPECIFIED (4) Schizophrenia Code(s): F20.9 - SCHIZOPHRENIA, UNSPECIFIED (5) Abdominal pain Code(s): R10.9 - UNSPECIFIED ABDOMINAL PAIN (6) CAD (coronary artery disease) Code(s): I25.10 - ATHSCL HEART DISEASE OF [place] CORONARY ARTERY W/O ANG PCTRS Qualifiers: Coronary Disease-Associated Artery/Lesion type: unspecified vessel or lesion type Associated angina: angina presence unspecified (7) CHF (congestive heart failure) Code(s): I50.9 - HEART FAILURE, UNSPECIFIED Qualifiers: Heart failure type: systolic Heart failure chronicity: acute on chronic Qualified Code(s): I50.23 - Acute on chronic systolic (congestive) heart failure (8) Hypertension Code(s): I10 - ESSENTIAL (PRIMARY) HYPERTENSION Qualifiers: Hypertension type: unspecified Qualified Code(s): I10 - Essential (primary ) hypertension (9) Gastroenteritis Code(s): K52.9 - NONINFECTIVE GASTROENTERITIS AND COLITIS, UNSPECIFIED (10) Normocytic anemia Code(s): D64.9 - ANEMIA, UNSPECIFIED (11) TIA (transient ischemic attack) Code(s): G45.9 - TRANSIENT CEREBRAL ISCHEMIC ATTACK, UNSPECIFIED This patient is new to me today: Yes Date on this admission: 08/22/19 Emergency Visit: No Critical Care patient: No - Discharge Referral Referred to [facility] Med [facility] No
[2019-08-22 18:30] VITALS: BP 132/69; PULSE 71; TEMP 98
[2019-08-24] MEDS ORDERED: ERGOCALCIFEROL (VIT D2) 50,000 UNIT (1.25 MG) CAPSULE PO SCH (10:00)
== END 2019-08-22 19:43 | disposition home or self-care (01) | DRG 249 ==
LOC: JER 14:54 → JERBED 20:02 → J8W 08-18 18:11
PROVIDERS: ADMIT Internal Medicine; ATTEND Nurse Practitioner Acute Care
PROC: 5A1D70Z Performance of Urinary Filtration, Intermittent, Less than 6 Hours Per Day (ICD-10-PCS; principal; 2019-08-21)
DX: K52.9 Noninfective gastroenteritis and colitis, unspecified (principal); I25.10 Atherosclerotic heart disease of native coronary artery without angina pectoris; I50.42 Chronic combined systolic (congestive) and diastolic (congestive) heart failure; E78.5 Hyperlipidemia, unspecified; I16.1 Hypertensive emergency; Z86.73 Personal history of transient ischemic attack (TIA), and cerebral infarction without residual deficits; F20.9 Schizophrenia, unspecified; R55 Syncope and collapse; R47.1 Dysarthria and anarthria; E87.6 Hypokalemia; N18.6 End stage renal disease; E83.39 Other disorders of phosphorus metabolism; I13.2 Hypertensive heart and chronic kidney disease with heart failure and with stage 5 chronic kidney disease, or end stage renal disease; D63.1 Anemia in chronic kidney disease; N25.0 Renal osteodystrophy; R31.29 Other microscopic hematuria; E11.65 Type 2 diabetes mellitus with hyperglycemia; Z99.2 Dependence on renal dialysis
CPT/HCPCS: 36415; 70450-TC; 70498-TC; 71045-TC-FY; 74177-TC; 76775-TC; 80048; 80053; 80061; 81003; 82550; 82553; 82962; 83036; 83605; 83690; 83721; 83735; 84100; 84484; 85025; 85027; 86803; 87086; 87186; 87340; 87804; 93005; 93010; 93306-TC; 93880-TC; 97116-GP; 97161-GP; 99285-25; J0885; J1644; J7030; Q9967

== ENCOUNTER 2019-09-12 22:19 | Inpatient (IN) | payer OTHER ==
--- NOTE | 2019-09-13 00:08 | PDOC ---
History of Present Illness - General Chief Complaint: Blood Pressure Problem Stated Complaint: HYPERTENTION Time Seen by Provider: 09/12/19 23:29 History Source: Patient Exam Limitations: No Limitations - History of Present Illness Initial Comments: 09/13/19 00:07 59M with a PMH of ESRD, CAD, CHF, CVA (2018), diabetes, HTN, and HLD who presents to the ER with elevated BP. The patient states that he ran out of 2/3 of his BP medications 1 week ago and he has had elevated pressure readings since last night. He also endorses ROCHA but denies CP, fever, chills, nausea, vomiting, numbness, tingling, weakness, ataxia. He endorses shortness of breath at rest. Pt also states that his vision is slightly more blurry than normal. Denies any other acute complaints. Past History - Past Medical History Allergies/Adverse Reactions: Allergies Allergy/AdvReac Type Severity Reaction Status Date / Time cashew nut Allergy Verified 08/17/19 14:58 Home Medications: Ambulatory Orders Tamsulosin HCl [Flomax] 0.4 mg PO DAILY 05/10/19 Clopidogrel Bisulfate [Plavix] 75 mg PO DAILY 05/29/19 Ergocalciferol (Vitamin D2) [Vitamin D2] 50,000 unit PO WEEKLY 05/29/19 Glipizide 10 mg PO BID 05/29/19 Labetalol HCl [Normodyne -] 200 mg PO BID 05/29/19 Losartan Potassium 50 mg PO DAILY 05/29/19 Nifedipine [Procardia Xl] 60 mg PO DAILY 05/29/19 Aspirin Coated [Ecotrin -] 81 mg PO DAILY #30 tablet.ec 08/22/19 Atorvastatin Ca [Lipitor] 80 mg PO HS #30 tablet 08/22/19 Nifedipine ER [Procardia XL -] 60 mg PO DAILY tab.er.24 08/22/19 Pantoprazole Sodium [Protonix -] 40 mg PO DAILY #30 tablet.ec 08/22/19 Anemia: Yes Asthma: No Cancer: No Cardiac Disorders: Yes (STENT X2 year 2016) CVA: Yes COPD: No CHF: Yes Dementia: No Diabetes: Yes Dialysis: Yes (fistula rt upper chest) GI Disorders: No Disorders: Yes (renal dialysis, tues,thur,sat with Rt chest permacath) HTN: Yes Hypercholesterolemia: Yes Liver Disease: No Seizures: Yes (states blood sugar sugar was elevated) Thyroid Disease: No - Surgical History Abdominal Surgery: No Appendectomy: No Cardiac Surgery: Yes (STENT X2) Cholecystectomy: No Lung Surgery: No Neurologic Surgery: No Orthopedic Surgery: Yes - Immunization History Immunization Up to Date: Yes - Psycho Social/Smoking Cessation Hx Smoking History: Never smoked Have you smoked in the past 12 months: No Hx Alcohol Use: No Drug/Substance Use Hx: No Substance Use Type: None Hx Substance Use Treatment: No Review of Systems - Review of Systems Able to Perform ROS?: Yes Comments:: 09/13/19 00:09 GENERAL/CONSTITUTIONAL: No fever or chills. No weakness. HEAD, EYES, EARS, NOSE AND THROAT: + for blurry vision. No ear pain or discharge. No sore throat. CARDIOVASCULAR: No chest pain, palpitations, or lightheadedness. RESPIRATORY: + for shortness of breath. No cough, wheezing, or hemoptysis. GASTROINTESTINAL: No abdominal pain, nausea, vomiting, diarrhea, or constipation. GENITOURINARY: No dysuria, frequency, hematuria, or change in urination. MUSCULOSKELETAL: No joint or muscle swelling or pain. No neck or back pain. SKIN: No rash or lesions. NEUROLOGIC: + for headache. No numbness, tingling, focal weakness, loss of consciousness, or change in strength/sensation. ENDOCRINE: No increased thirst. No abnormal weight change. HEMATOLOGIC/LYMPHATIC: No anemia, easy bleeding, or history of blood clots. ALLERGIC/IMMUNOLOGIC: No hives or skin allergy. Is the patient limited Mohawk proficient: No *Physical Exam - Vital Signs Last Vital Signs Temp Pulse Resp BP Pulse Ox 97.9 F 89 18 199/110 H 97 09/12/19 22:21 09/12/19 22:21 09/12/19 22:21 09/12/19 22:21 09/12/19 22:21 - Physical Exam 09/13/19 00:13 GENERAL: Well developed, well nourished. Awake and alert. No acute distress. HEENT: Normocephalic, atraumatic. Hearing grossly normal. Moist mucous membranes. PERRLA, EOMI. No conjunctival pallor. Sclera are non-icteric. NECK: Supple. Full ROM. No JVD. CARDIOVASCULAR: Regular rate and rhythm. No murmurs, rubs, or gallops. PULMONARY: No evidence of respiratory distress. Lungs clear to auscultation bilaterally. No wheezing, rales, or rhonchi. ABDOMINAL: Soft. Non-tender. Non-distended. No rebound or guarding. GENITOURINARY: No CVA tenderness bilaterally. MUSCULOSKELETAL: Normal range of motion at all joints. No bony deformities or tenderness. EXTREMITIES: No cyanosis. No clubbing. 2+ pitting edema in b/l LE. No calf tenderness or swelling. SKIN: Warm and dry. Normal capillary refill. No rashes. No jaundice. NEUROLOGICAL: Alert, awake, appropriate. Cranial nerves 2-12 intact. Moving all 4 extremities. Normal speech. Gait is normal without ataxia. PSYCHIATRIC: Cooperative. Good eye contact. Appropriate mood and affect. ED Treatment Course - LABORATORY CBC & Chemistry Diagram: 09/13/19 00:02 09/13/19 00:02 - RADIOLOGY Radiology Studies Ordered: Category Date Time Status HEAD CT WITHOUT CONTRAST [CT] Stat CT Scan 09/12/19 23:40 Ordered Medical Decision Making - Medical Decision Making 09/13/19 00:13 59M with MMP who presents to the ER with uncontrolled HTN. Pt states that he has not had 2/3 of his BP meds for the past week. Pt has not had Nifedipine 60mg qd and Labetalol 200mg BID. Pt well appearing otherwise. Will obtain labs, EKG, CTH to r/o bleed. Pending labs and imaging. 09/13/19 01:27 BNP elevated. Will admit for CHF exacerbation. 09/13/19 02:40 No mention of diuretic on pt's med list. Will hold off for inpt team as pt has CKD. Pending CTH. 09/13/19 02:[address] Swenson for admission. Discharge - Discharge Information Problems reviewed: Yes Clinical Impression/Diagnosis: CAD (coronary artery disease), CKD (chronic kidney disease) stage 4, GFR 15-29 ml/min, Type 2 diabetes mellitus with diabetic neuropathy, unspecified, CHF (congestive heart failure) Condition: Guarded - Admission Yes - Follow up/Referral - Patient Discharge Instructions - Post Discharge Activity
[2019-09-13] MEDS ORDERED: NIFEdipine E.R 60 MG TABLET PO ONE (00:21)
[2019-09-13] MEDS ORDERED: LABETALOL HCL 200 MG TABLET (FP) PO ONE (00:21)
[2019-09-13 00:30] LABS: BASO % 1.2 % (0-2.0); EOS % 4.4 % (0-4.5); HEMATOCRIT 32.2 % (35.4-49); HEMOGLOBIN 10.3 GM/dL (11.7-16.9); LYMPH % 21.8 % (8-40); MCH 29.1 pg (25.7-33.7); MCHC 31.9 g/dl (32.0-35.9); MEAN CELL VOLUME 91.1 fl (80-96); MEAN PLT VOLUME 7.6 fl (7.5-11.1); NEUT % 61.6 % (42.8-82.8); PLATELET COUNT 236 K/MM3 (134-434); RBC 3.54 M/mm3 (4.00-5.60); WHITE BLOOD COUNT 4.4 K/mm3 (4.0-10.0)
[2019-09-13 00:45] LABS: INR 1.12 (0.83-1.09); PROTHROMBIN TIME (PATIENT) 13.2 SEC (9.7-13.0)
[2019-09-13 01:03] LABS: ALBUMIN 3.2 g/dl (3.4-5.0); ALK PHOS 123 U/L (45-117); ANION GAP 10 MMOL/L (8-16); BILIRUBIN,TOTAL 0.4 mg/dL (0.2-1); BLOOD UREA NITROGEN 65.1 mg/dL (7-18); CALCIUM 7.4 mg/dL (8.5-10.1); CHLORIDE 110 mmol/L (98-107); CO2 25 mmol/L (21-32); CREATININE 5.8 mg/dL (0.55-1.3); GLUCOSE,RANDOM 120 mg/dL (74-106); MAGNESIUM 1.9 mg/dL (1.8-2.4); N-TERMINAL BNP > 35000.0 pg/ml (5-125); POTASSIUM 4.1 mmol/L (3.5-5.1); SGOT/AST 21 U/L (15-37); SGPT/ALT 49 U/L (13-61); SODIUM 145 mmol/L (136-145); TOT PROT 7.6 g/dl (6.4-8.2)
[2019-09-13] MEDS ORDERED: LABETALOL HCL 100 MG TABLET (FP) ONE ×2 (01:19→01:22)
[2019-09-13] MEDS ORDERED: NIFEdipine E.R. 30 MG TABLET ONE ×2 (01:20→01:22)
--- NOTE | 2019-09-13 02:08 | PDOC ---
Attending Attestation - Resident Resident Name: CrowpamelaMorales - ED Attending Attestation I have performed the following: I have examined & evaluated the patient, The case was reviewed & discussed with the resident, I agree w/resident's findings & plan - HPI HPI: 09/18/19 00:38 59M with a PMH of ESRD, CAD, CHF, CVA (2018), diabetes, HTN, and HLD who presents to the ER with elevated BP. The patient states that he ran out of 2/3 of his BP medications 1 week ago and he has had elevated pressure readings since last night. He also endorses ROCHA but denies CP, fever, chills, nausea, vomiting, numbness, tingling, weakness, ataxia. He endorses shortness of breath at rest. Pt also states that his vision is slightly more blurry than normal. Denies any other acute complaints. - Physicial Exam PE: 09/18/19 00:39 Agree with resident exam. Clear lungs 2+ edema of legs bilaterally. - Medical Decision Making 09/18/19 00:39 59M with MMP who presents to the ER with uncontrolled HTN. Pt states that he has not had 2/3 of his BP meds for the past week. Pt has not had Nifedipine 60mg qd and Labetalol 200mg BID. Pt well appearing otherwise. Will obtain labs, EKG, CTH to r/o bleed. Pending labs and imaging. 09/13/19 01:27 BNP elevated. Will admit for CHF exacerbation. 09/13/19 02:00 No mention of diuretic on pt's med list. Will hold off for inpt team as pt has CKD. Pending CTH. 09/13/19 02:08 CT head is normal 09/13/19 02:[address] Swenson for admission. Discharge - Discharge Information Problems reviewed: Yes Clinical Impression/Diagnosis: CAD (coronary artery disease), CKD (chronic kidney disease) stage 4, GFR 15-29 ml/min, Type 2 diabetes mellitus with diabetic neuropathy, unspecified, CHF (congestive heart failure) Condition: Stable - Admission Yes
[2019-09-13] MEDS ORDERED: NITROGLYCERIN SUBLINGUAL 1/150 0.4 MG TAB ONE (03:01)
[2019-09-13] MEDS ORDERED: NITROGLYCERIN SUBLINGUAL 1/150 0.4 MG TAB SL ONE (03:07)
[2019-09-13] MEDS ORDERED: FUROSEMIDE 40 MG/4 ML INJECTABLE VIAL IVPUSH ONE (03:28)
--- NOTE | 2019-09-13 03:38 | PN ---
Teaching Attending Note Name of Resident: Zulma Swenson ATTENDING PHYSICIAN STATEMENT I saw and evaluated the patient. I reviewed the resident's note and discussed the case with the resident. I agree with the resident's findings and plan as documented. SUBJECTIVE: 59 y.o. ESRD (on HD tu/fri, missed today's HD), CAD, CHF, CVA in 2018, DM, HTN, HLD, schizophrenia presented for high blood pressure that he measured at home. He reported that his blood pressure systolic was in the 200s. He has missed his blood pressure meds recently as was unable to receive prescriptions from his PCP. Patient otherwise is asymptomatic and denied any significant orthopnea, shortness of breath. He does have a nonproductive cough. He reports his last hemodialysis was this past Friday. Patient reports that he does make urine. Last Vital Signs Temp Pulse Resp BP Pulse Ox 97.7 F 78 18 170/112 H 99 09/13/19 01:38 09/13/19 01:38 09/13/19 01:38 09/13/19 01:38 09/13/19 01:38 On physical exam patient was not in any acute distress, flat affect, head was atraumatic, normocephalic. Cardiovascular exam was S1, S2 lungs were clear to auscultation bilaterally. Abdomen was soft, nontender. Lower extremities had 2+ pedal edema. Right chest hemodialysis catheter Abnormal Lab Results 09/13/19 09/13/19 09/13/19 00:02 00:02 00:02 RBC 3.54 L Hgb 10.3 L Hct 32.2 L D MCHC 31.9 L Monocytes % 11.0 H PT with INR 13.20 H INR 1.12 H Chloride 110 H BUN 65.1 H Creatinine 5.8 H Random Glucose 120 H Calcium 7.4 L Alkaline Phosphatase 123 H CK-MB (CK-2) 5.9 H B-Natriuretic Peptide > 50955.0 H Albumin 3.2 L Imaging studies reviewed ASSESSMENT AND PLAN: 51-year-old male with a history of CAD, end-stage renal disease on hemodialysis presenting with elevated blood pressure but otherwise asymptomatic. He does appear to be fluid overload which is likely secondary to being under dialyzed. MedSurg Aspirin 81 mg Moderate dose statin Monitor vital signs closely #uncontrolled hypertension Continue home dose hypertensive medications Salt and free water restriction Continue hemodialysis #End-stage renal diseaseTuesday, , Friday dialysis Renal consult for hemodialysis Sodium bicarb 3 times daily Calcium trial, ergocalciferol Sevelamer 3 times daily Fluid and salt restriction #CADCHF Aspirin, statin #Diabetes mellitusuncontrolled Insulin sliding scale, A1c, basal insulin #Anemianormocytic MCV. Suspect anemia of chronic disease secondary to CKD Would likely benefit from EPO Ferrous sulfate DVT prophylaxisheparin subcutaneously
[2019-09-13] MEDS ORDERED: FUROSEMIDE 40 MG/4 ML INJECTABLE VIAL ONE ×2 (04:34→06:22)
--- NOTE | 2019-09-13 04:53 | HP ---
CHIEF COMPLAINT: hypertension PCP: dr ruvalcaba HISTORY OF PRESENT ILLNESS: 59 y.o. ESRD (on HD tu/fri, missed today's HD), CAD, CHF, CVA in 2018, DM, HTN, HLD, schizophrenia presenting for findings of high BP readings at home (SBP in 200s). The patient has missed almost a week of his BP meds as he has been unable to contact his PCP in time to renew them and pick them up. On arrival to ED BP read 200/110. He was given 200mg labetalol PO and nifedipine 60mg PO & his Bp reduced to 170s/100s. The patient also endorses a recent hx of dyspnea w/ exertion for the last week as well as increasing LE edema. At baseline he is able to walk 2 blocks before becoming SOB. Now he can barely tolerate any walking without SOB. Denies orthopnea/ PND. He does however endorse a non- productive cough. He denies any chest pain/ headache/ fevers or chills/ diaphoresis/ n/v/d/ parasthesias/ dysuria. ER course was notable for: (1) 200mg labetalol PO, nifedipine 60mg PO, nitro paste x1 (2) On my exam the patient's BP on the right arm read 209/113, left arm reading 170s/100. (3) Recent Travel: denies PAST MEDICAL HISTORY: as per hpi PAST SURGICAL HISTORY: denies Social History: lives w/ friend in an apartment. not currently working. Smoking: denies Alcohol:denies Drugs: denies Allergies cashew nut Allergy (Verified 08/17/19 14:58) Family history: DM in father HOME MEDICATIONS: Home Medications Medication Instructions Recorded Tamsulosin HCl [Flomax] 0.4 mg PO DAILY 05/10/19 Clopidogrel Bisulfate [Plavix] 75 mg PO DAILY 05/29/19 Ergocalciferol (Vitamin D2) 50,000 unit PO WEEKLY 05/29/19 [Vitamin D2] Glipizide 10 mg PO BID 05/29/19 Labetalol HCl [Normodyne -] 200 mg PO BID 05/29/19 Losartan Potassium 50 mg PO DAILY 05/29/19 Aspirin Coated [Ecotrin -] 81 mg PO DAILY #30 tablet.ec 08/22/19 Atorvastatin Ca [Lipitor] 80 mg PO HS #30 tablet 08/22/19 Nifedipine ER [Procardia XL -] 60 mg PO DAILY tab.er.24 08/22/19 Pantoprazole Sodium [Protonix -] 40 mg PO DAILY #30 tablet.ec 08/22/19 REVIEW OF SYSTEMS CONSTITUTIONAL: Absent: fever, chills, diaphoresis, generalized weakness, malaise, loss of appetite, weight change HEENT: Absent: rhinorrhea, nasal congestion, throat pain, throat swelling, difficulty swallowing, mouth swelling, ear pain, eye pain, visual changes CARDIOVASCULAR: peripheral edema Absent: chest pain, syncope, palpitations, irregular heart rate, lightheadedness RESPIRATORY: cough, shortness of breath, dyspnea with exertion Absent: orthopnea, wheezing, stridor, hemoptysis GASTROINTESTINAL: Absent: abdominal pain, abdominal distension, nausea, vomiting, diarrhea, constipation, melena, hematochezia GENITOURINARY: Absent: dysuria, frequency, urgency, hesitancy, hematuria, flank pain, genital pain MUSCULOSKELETAL: Absent: myalgia, arthralgia, joint swelling, back pain, neck pain SKIN: Absent: rash, itching, pallor HEMATOLOGIC/IMMUNOLOGIC: Absent: easy bleeding, easy bruising, lymphadenopathy, frequent infections ENDOCRINE: Absent: unexplained weight gain, unexplained weight loss, heat intolerance, cold intolerance NEUROLOGIC: Absent: headache, focal weakness or paresthesias, dizziness, unsteady gait, seizure, mental status changes, bladder or bowel incontinence PSYCHIATRIC: Absent: anxiety, depression, suicidal or homicidal ideation, hallucinations. PHYSICAL EXAMINATION Vital Signs - 24 hr 09/12/19 09/13/19 22:21 01:38 Temperature 97.9 F 97.7 F Pulse Rate 89 Pulse Rate [ 78 Left Apical] Respiratory 18 18 Rate Blood Pressure 199/110 H Blood Pressure 170/112 H [Right Arm] O2 Sat by Pulse 97 99 Oximetry (%) GENERAL: Awake, alert, and fully oriented, in no acute distress. R dialysis catheter c/d/i. HEENT: NCAT no JVD LUNGS: CTABL. No wheezes, and no crackles. No accessory muscle use. HEART: Regular rate and rhythm, normal S1 and S2 without murmur, rub or gallop. ABDOMEN: Soft, nontender, not distended, normoactive bowel sounds, no guarding. EXTREMITIES: 2+ pulses, warm, well-perfused. No calf tenderness. 2+ b/l LE pitting edema. NEUROLOGICAL: Cranial nerves II-XII intact. PSYCHIATRIC: Appropriate mood and affect. SKIN: Warm, dry, normal turgor, no rashes or lesions noted. Laboratory Results - last 24 hr 09/13/19 09/13/19 09/13/19 00:02 00:02 00:02 WBC 4.4 RBC 3.54 L Hgb 10.3 L Hct 32.2 L D MCV 91.1 MCH 29.1 MCHC 31.9 L RDW 15.0 Plt Count 236 D MPV 7.6 Absolute Neuts (auto) 2.7 Neutrophils % 61.6 Lymphocytes % 21.8 Monocytes % 11.0 H Eosinophils % 4.4 Basophils % 1.2 Nucleated RBC % 0 PT with INR 13.20 H INR 1.12 H Sodium 145 Potassium 4.1 Chloride 110 H Carbon Dioxide 25 Anion Gap 10 BUN 65.1 H Creatinine 5.8 H Est GFR (CKD-EPI)AfAm 11.43 Est GFR (CKD-EPI)NonAf 9.86 Random Glucose 120 H Calcium 7.4 L Magnesium 1.9 Total Bilirubin 0.4 AST 21 ALT 49 Alkaline Phosphatase 123 H Creatine Kinase 302 Creatine Kinase Index 1.9 CK-MB (CK-2) 5.9 H Troponin I 0.03 B-Natriuretic Peptide > 32103.0 H Total Protein 7.6 Albumin 3.2 L ASSESSMENT/PLAN: 59 y.o. ESRD (on HD /fri, missed today's HD), CAD, CHF, CVA in 2018, DM, HTN, HLD, schizophrenia presenting for hypertension #Acute CHF exacerbation -CXR showing b/l congestive changes, poss LLL infiltrate as compared to prior study, per my read. f/u final read -BNP >35,000 -giving stat does 40mg IV lasix -continue lasix 40mg IV BID -closely monitor Is & Os -daily weights -echo done 08/18/2019: EF 50%. Moderate LVH. Low/ normal LV systolic function. Moderate pulmonary HTN/ Pleural effusion noted. #Hypertensive urgency -patient has missed ~1week of BP meds -s/p labetalol 200mg PO, nifedipine 60mg PO & 1x nitro paste in ED -reinstating home BP meds-- need to reconsider losartan in ESRD -on my exam, BP on R arm 209/113, left arm 170s/100. -continue to monitor BP, monitoring on telemetry -educated patient on importance of medication compliance-- if cannot get in touch w/ PCP office can come to resident clinic or call our office at [phone] -trop negative x1 #ESRD -On HD tu/ sat -BUN/cr 65/5.8-- trend renal labs -replete electrolytes -avoid nephrotoxic medications -Dr. Quiroz renal consulted #CAD -aspirin 81 mg, statin -no acute issues #Normocytic anemia -likely due to chronic renal disease, seen on prior labs -Hgb/Hct 10.3/32.2 -monitor cbc #Diabetes mellitus -ISS -BGMs ACHS -Hold home oral meds -HbA1c 4.2% on 08/17/2019 #Schizophrenia -patient does not f/u with psychiatrist -on no home meds -psych outpatient f/u #PPX -heparin SQ -protonix 40mg IV daily #FEN -No standing fluids -trend lytes replete prn -diabetic/ na controlled diet #Dispo observe on telemetry Visit type - Emergency Visit Emergency Visit: Yes ED Registration Date: 09/13/19 Care time: The patient presented to the Emergency Department on the above date and was hospitalized for further evaluation of their emergent condition. - New Patient This patient is new to me today: Yes Date on this admission: 09/13/19 - Critical Care Critical Care patient: No ATTENDING PHYSICIAN STATEMENT I saw and evaluated the patient. I reviewed the resident's note and discussed the case with the resident. I agree with the resident's findings and plan as documented. SUBJECTIVE: OBJECTIVE: ASSESSMENT AND PLAN:
[2019-09-13] MEDS ORDERED: FUROSEMIDE 40 MG/4 ML INJECTABLE VIAL IVPUSH SCH ×2 (06:00→20:00)
[2019-09-13] MEDS ORDERED: HEPARIN NA (PORCINE) 5,000 UNITS/ML 1ML VIAL ONE (06:21)
[2019-09-13] MEDS: HEPARIN NA (PORCINE) 5,000 UNITS/ML 1ML VIAL SQ SCH ×3 (06:59→21:47)
[2019-09-13 08:12] LABS: ALBUMIN 2.8 g/dl (3.4-5.0); BILIRUBIN,TOTAL 0.3 mg/dL (0.2-1); CALCIUM 7.4 mg/dL (8.5-10.1); CREATININE 6.2 mg/dL (0.55-1.3); PHOSPHOROUS 4.9 mg/dL (2.5-4.9); POTASSIUM 3.9 mmol/L (3.5-5.1); TOT PROT 6.7 g/dl (6.4-8.2)
[2019-09-13 08:56] LABS: HEMATOCRIT 27.6 % (35.4-49); MCH 29.4 pg (25.7-33.7); MCHC 32.6 g/dl (32.0-35.9); MEAN CELL VOLUME 90.1 fl (80-96); MEAN PLT VOLUME 7.5 fl (7.5-11.1); PLATELET COUNT 220 K/MM3 (134-434); RBC 3.06 M/mm3 (4.00-5.60); RDW 15.1 % (11.9-15.9); WHITE BLOOD COUNT 4.6 K/mm3 (4.0-10.0)
--- NOTE | 2019-09-13 09:28 | EKG ---
Test Reason : Blood Pressure : / mmHG Vent. Rate : 081 BPM Atrial Rate : 081 BPM P-R Int : 194 ms QRS Dur : 070 ms QT Int : 406 ms P-R-T Axes : 037 007 053 degrees QTc Int : 471 ms SINUS RHYTHM WITH OCCASIONAL PREMATURE VENTRICULAR COMPLEXES Motion artifact POSSIBLE LEFT ATRIAL ENLARGEMENT NONSPECIFIC T WAVE ABNORMALITY ABNORMAL ECG WHEN COMPARED WITH ECG OF 17-AUG-2019 15:32, NO SIGNIFICANT CHANGE WAS FOUND Confirmed by Radha Iglesias ([id number]) on 09/13/2019 9:28:22 AM Referred By: Confirmed By:Radha Iglesias
[2019-09-13] MEDS ORDERED: PT OWN MED DRAWER 7, Y5N ONE (10:03)
[2019-09-13] MEDS ORDERED: ASPIRIN COATED 81 MG TABLET.EC ONE (10:22)
[2019-09-13] MEDS ORDERED: CLOPIDOGREL BISULFATE 75 MG TABLET (FP) ONE (10:23)
[2019-09-13] MEDS ORDERED: LOSARTAN POTASSIUM 50 MG TABLET (FP) ONE (10:23)
[2019-09-13] MEDS ORDERED: TAMSULOSIN HCL 0.4 MG CAP ONE (10:23)
[2019-09-13] MEDS ORDERED: PANTOPRAZOLE 40 MG TABLET ONE (10:23)
[2019-09-13] MEDS: TAMSULOSIN HCL 0.4 MG CAP PO SCH (10:34)
[2019-09-13] MEDS: LABETALOL HCL 200 MG TABLET (FP) PO SCH ×2 (10:35→21:47)
[2019-09-13] MEDS: ASPIRIN COATED 81 MG TABLET.EC PO SCH (10:35)
[2019-09-13] MEDS: CLOPIDOGREL BISULFATE 75 MG TABLET (FP) PO SCH (10:35)
[2019-09-13] MEDS: LOSARTAN POTASSIUM 50 MG TABLET (FP) PO SCH (10:35)
[2019-09-13] MEDS: NIFEdipine E.R 60 MG TABLET PO SCH (10:36)
[2019-09-13] MEDS: PANTOPRAZOLE 40 MG TABLET PO SCH (10:36)
[2019-09-13] MEDS ORDERED: SODIUM CHLORIDE 250 ML IV PRN ×2 (12:26→14:20)
--- NOTE | 2019-09-13 12:34 | CONSULT ---
Consult - text type - Consultation Consultation Note: Renal consult for ESRD on HD This is a 59 year old gentleman with history of ESRD on HD (TTS), DM, CHF, Hypertension who presented from home with swelling and elevated blood pressures. He reports his last dialysis was Friday but he only got 1 hr of treatment. He denies any chest pain or shortness of breath. He did have JONES and blurry vision on presentation but now improved. No N/V/D. No fever or chills. No confusion or lethargy. PMhx: as above Allergies: NKDA Family Hx: NC Social Hx: No T/A/D ROS: As per HPI, all other pertinent ros negative Home Medications Medication Instructions Recorded Tamsulosin HCl [Flomax] 0.4 mg PO DAILY 05/10/19 Clopidogrel Bisulfate [Plavix] 75 mg PO DAILY 05/29/19 Ergocalciferol (Vitamin D2) 50,000 unit PO WEEKLY 05/29/19 [Vitamin D2] Glipizide 10 mg PO BID 05/29/19 Labetalol HCl [Normodyne -] 200 mg PO BID 05/29/19 Losartan Potassium 50 mg PO DAILY 05/29/19 Aspirin Coated [Ecotrin -] 81 mg PO DAILY #30 tablet.ec 08/22/19 Atorvastatin Ca [Lipitor] 80 mg PO HS #30 tablet 08/22/19 Nifedipine ER [Procardia XL -] 60 mg PO DAILY tab.er.24 08/22/19 Pantoprazole Sodium [Protonix -] 40 mg PO DAILY #30 tablet.ec 08/22/19 Vital Signs Temperature 97.7 F 09/13/19 01:38 Pulse Rate 76 09/13/19 10:39 Respiratory Rate 18 09/13/19 10:39 Blood Pressure 142/78 09/13/19 10:39 O2 Sat by Pulse Oximetry (%) 94 L 09/13/19 10:39 Intake & Output 09/10/19 09/11/19 09/12/19 09/13/19 22:59 22:59 23:59 23:59 Weight NAD awake and alert neck supple, on JVD RRR, no M/R Dec BS at lung bases soft NT/ND ++ edema, no cyanosis or clubbing Right IJ tunneled HD catheter, no tenderness CBC, BMP 09/13/19 06:28 09/13/19 06:28 Current Medications Aspirin (Ecotrin -) 81 mg PO DAILY [facility] Last Admin: 09/13/19 10:35 Dose: 81 mg Documented by: Atorvastatin Calcium (Lipitor -) 80 mg PO HS [facility] Clopidogrel Bisulfate (Plavix -) 75 mg PO DAILY [facility] Last Admin: 09/13/19 10:35 Dose: 75 mg Documented by: Ergocalciferol (Drisdol -) 50,000 unit PO WEEKLY [facility] Furosemide (Lasix Injection -) 40 mg IVPUSH BIDLASIX [facility] Last Admin: 09/13/19 06:59 Dose: 40 mg Documented by: Heparin Sodium (Porcine) (Heparin -) 5,000 unit SQ TID [facility] Last Admin: 09/13/19 06:59 Dose: 5,000 unit Documented by: Sodium Chloride (Normal Saline -) 250 mls @ 3,000 mls/hr IV PRN PRN PRN Reason: Hypotension during Dialysis Stop: 09/14/19 12:26 Labetalol HCl (Normodyne -) 200 mg PO BID [facility] Last Admin: 09/13/19 10:35 Dose: 200 mg Documented by: Losartan Potassium (Cozaar -) 50 mg PO DAILY [facility] Last Admin: 09/13/19 10:35 Dose: 50 mg Documented by: Nifedipine (Procardia Xl -) 60 mg PO DAILY [facility] Last Admin: 09/13/19 10:36 Dose: 60 mg Documented by: Pantoprazole Sodium (Protonix -) 40 mg PO DAILY [facility] Last Admin: 09/13/19 10:36 Dose: 40 mg Documented by: Tamsulosin HCl (Flomax -) 0.4 mg PO DAILY@0830 [facility] Last Admin: 09/13/19 10:34 Dose: 0.4 mg Documented by: 59 year old gentleman with history of ESRD on HD (TTS), DM, CHF, Hypertension who presented from home with swelling and elevated blood pressures. 1. ESRD on HD 2. Fluid overload/CHF 3. Hypertensive urgency 4. acute on chronic anemia 5. DM Will arrange for HD Today with UF 2k bath, UF goal 3-3.5L as tolerated additional UF as needed Start Torsemide 80mg daily Continue pressent antihypertensives as BP is controlled Check stool for occult blood Will give RICHARD with HD check iron studies Renal diet, 1.2L fluid restriction Thank you Mansoor Quiroz DO
[2019-09-13] MEDS ORDERED: EPOETIN ALFA-EPBX 10,000 UNIT/ML VIAL IVPUSH ONE (14:30)
[2019-09-13] MEDS ORDERED: EPOETIN ALFA 10,000 UNIT/1 ML VIAL IVPUSH ONE (14:30)
--- NOTE | 2019-09-13 15:56 | PN ---
<Dragan Abdi - Last Filed: 09/13/19 16:02> Physical Exam: SUBJECTIVE: Patient seen and examined at bedside. Reports increasing orthopnea, dyspnea on exertion. BP reportedly improved per nurse. OBJECTIVE: Vital Signs Period Temp Pulse Resp BP Sys/Lopez Pulse Ox Last 24 Hr 97.7 F-98.2 F 74-89 18-20 118-207/69-112 94-99 GENERAL: A&Ox3, no acute distress EYES: PERRLA, EOMI ENT: Moist mucus membranes NECK: Mild JVD noted on exam LUNGS: CTA, no wheezes or crackles noted HEART: RRR, no murmurs ABDOMEN: Soft, nontender, BS present MUSCULOSKELETAL: No CVA Tenderness EXTREMITIES: 2+ pulses, 2+ edema bilaterally NEUROLOGICAL: Cranial nerves II-XII intact. Laboratory Results - last 24 hr 09/13/19 09/13/19 09/13/19 00:02 00:02 00:02 WBC 4.4 RBC 3.54 L Hgb 10.3 L Hct 32.2 L D MCV 91.1 MCH 29.1 MCHC 31.9 L RDW 15.0 Plt Count 236 D MPV 7.6 Absolute Neuts (auto) 2.7 Neutrophils % 61.6 Lymphocytes % 21.8 Monocytes % 11.0 H Eosinophils % 4.4 Basophils % 1.2 Nucleated RBC % 0 PT with INR 13.20 H INR 1.12 H Sodium 145 Potassium 4.1 Chloride 110 H Carbon Dioxide 25 Anion Gap 10 BUN 65.1 H Creatinine 5.8 H Est GFR (CKD-EPI)AfAm 11.43 Est GFR (CKD-EPI)NonAf 9.86 Random Glucose 120 H Calcium 7.4 L Phosphorus Magnesium 1.9 Total Bilirubin 0.4 AST 21 ALT 49 Alkaline Phosphatase 123 H Creatine Kinase 302 Creatine Kinase Index 1.9 CK-MB (CK-2) 5.9 H Troponin I 0.03 B-Natriuretic Peptide > 87909.0 H Total Protein 7.6 Albumin 3.2 L 09/13/19 09/13/19 06:28 06:28 WBC 4.6 RBC 3.06 L Hgb 9.0 L Hct 27.6 L MCV 90.1 MCH 29.4 MCHC 32.6 RDW 15.1 Plt Count 220 MPV 7.5 Absolute Neuts (auto) Neutrophils % Lymphocytes % Monocytes % Eosinophils % Basophils % Nucleated RBC % PT with INR INR Sodium 144 Potassium 3.9 Chloride 111 H Carbon Dioxide 24 Anion Gap 9 BUN 70.0 H Creatinine 6.2 H Est GFR (CKD-EPI)AfAm 10.54 Est GFR (CKD-EPI)NonAf 9.10 Random Glucose 153 H Calcium 7.4 L Phosphorus 4.9 Magnesium Total Bilirubin 0.3 AST 19 ALT 43 Alkaline Phosphatase 112 Creatine Kinase Creatine Kinase Index CK-MB (CK-2) Troponin I B-Natriuretic Peptide Total Protein 6.7 Albumin 2.8 L Active Medications Generic Name Dose Route Start Last Admin Trade Name Freq PRN Reason Stop Dose Admin Aspirin 81 mg 09/13/19 10:00 09/13/19 10:35 Ecotrin - PO 81 mg DAILY [facility] Administration Atorvastatin Calcium 80 mg 09/13/19 22:00 Lipitor - PO HS [facility] Clopidogrel Bisulfate 75 mg 09/13/19 10:00 09/13/19 10:35 Plavix - PO 75 mg DAILY [facility] Administration Ergocalciferol 50,000 unit 09/13/19 03:45 Drisdol - PO WEEKLY S[facility] Heparin Sodium (Porcine) 5,000 unit 09/13/19 06:00 09/13/19 06:59 Heparin - SQ 5,000 unit TID [facility] Administration Sodium Chloride 250 mls @ 3,000 mls/hr 09/13/19 12:26 Normal Saline - IV 09/14/19 12:26 PRN PRN Hypotension during Dialysis Sodium Chloride 250 mls @ 3,000 mls/hr 09/13/19 14:20 Normal Saline - IV 09/14/19 14:19 PRN PRN Hypotension during Dialysis Labetalol HCl 200 mg 09/13/19 10:00 09/13/19 10:35 Normodyne - PO 200 mg BID [facility] Administration Losartan Potassium 50 mg 09/13/19 10:00 09/13/19 10:35 Cozaar - PO 50 mg DAILY [facility] Administration Nifedipine 60 mg 09/13/19 10:00 09/13/19 10:36 Procardia Xl - PO 60 mg DAILY [facility] Administration Pantoprazole Sodium 40 mg 09/13/19 10:00 09/13/19 10:36 Protonix - PO 40 mg DAILY [facility] Administration Tamsulosin HCl 0.4 mg 09/13/19 08:30 09/13/19 10:34 Flomax - PO 0.4 mg DAILY@0830 [facility] Administration Torsemide 80 mg 09/14/19 10:00 Demadex - PO DAILY [facility] ASSESSMENT/PLAN: 59 year old male with a history of ESRD, CAD, CHF, CVA (2018), diabetes, hypertension, hyperlipidemia here for hypertension and being treated for volume overload 2/2 to ESRD/CHF #ESRD: reportedly missed dialysis, now volume overloaded -per renal, will dialyze today -lasix changed to torsemide 80 daily -RICHARD to be given with hemodialysis -renal diet -Dr. Quiroz consulted #CHF: worsening edema with ejection fraction 50% found on echo 08/18 -daily weights -I's/O's -lasix changed to torsemide #Acute CHF exacerbation -CXR showing b/l congestive changes, poss LLL infiltrate as compared to prior study, per my read. f/u final read -BNP >35,000 -giving stat does 40mg IV lasix -continue lasix 40mg IV BID -closely monitor Is & Os -daily weights -echo done 08/18/2019: EF 50%. Moderate LVH. Low/ normal LV systolic function. Moderate pulmonary HTN/ Pleural effusion noted. #Hypertensive Urgency: resolved, likely 2/2 medication non-compliance -continue losartan 50 daily -continue nifedipine ER 60 daily -continue labetalol 200 BID #Normocytic anemia -likely due to chronic renal disease, seen on prior labs -Hgb/Hct 10.3/32.2 -monitor cbc #Diabetes mellitus -ISS -BGMs ACHS #Prophylaxis -heparin SQ -protonix 40mg IV daily #FEN -No standing fluids -lytes wnl -diet ordered #Dispo -tele for dialysis/volume overload, anticipate DC in 24-48 hours Visit type - Emergency Visit Emergency Visit: No - New Patient This patient is new to me today: Yes Date on this admission: 09/13/19 - Critical Care Critical Care patient: No ATTENDING PHYSICIAN STATEMENT I saw and evaluated the patient. I reviewed the resident's note and discussed the case with the resident. I agree with the resident's findings and plan as documented. SUBJECTIVE: OBJECTIVE: ASSESSMENT AND PLAN: <Fay Hartley - Last Filed: 09/13/19 16:18> Physical Exam: SUBJECTIVE: Patient seen and examined OBJECTIVE: Vital Signs Period Temp Pulse Resp BP Sys/Lopez Pulse Ox Last 24 Hr 97.7 F-98.2 F 74-89 18-20 118-207/69-112 94-99 GENERAL: The patient is awake, alert, and fully oriented, in no acute distress. HEAD: Normal with no signs of trauma. EYES: PERRL, extraocular movements intact, sclera anicteric, conjunctiva clear. No ptosis. ENT: Ears normal, nares patent, oropharynx clear without exudates, moist mucous membranes. NECK: Trachea midline, full range of motion, supple. LUNGS: Breath sounds equal, clear to auscultation bilaterally, no wheezes, no crackles, no accessory muscle use. HEART: Regular rate and rhythm, S1, S2 without murmur, rub or gallop. ABDOMEN: Soft, nontender, nondistended, normoactive bowel sounds, no guarding, no rebound, no hepatosplenomegaly, no masses. EXTREMITIES: 2+ pulses, warm, well-perfused, no edema. NEUROLOGICAL: Cranial nerves II through XII grossly intact. Normal speech, gait not observed. PSYCH: Normal mood, normal affect. SKIN: Warm, dry, normal turgor, no rashes or lesions noted Laboratory Results - last 24 hr 09/13/19 09/13/19 09/13/19 00:02 00:02 00:02 WBC 4.4 RBC 3.54 L Hgb 10.3 L Hct 32.2 L D MCV 91.1 MCH 29.1 MCHC 31.9 L RDW 15.0 Plt Count 236 D MPV 7.6 Absolute Neuts (auto) 2.7 Neutrophils % 61.6 Lymphocytes % 21.8 Monocytes % 11.0 H Eosinophils % 4.4 Basophils % 1.2 Nucleated RBC % 0 PT with INR 13.20 H INR 1.12 H Sodium 145 Potassium 4.1 Chloride 110 H Carbon Dioxide 25 Anion Gap 10 BUN 65.1 H Creatinine 5.8 H Est GFR (CKD-EPI)AfAm 11.43 Est GFR (CKD-EPI)NonAf 9.86 Random Glucose 120 H Calcium 7.4 L Phosphorus Magnesium 1.9 Total Bilirubin 0.4 AST 21 ALT 49 Alkaline Phosphatase 123 H Creatine Kinase 302 Creatine Kinase Index 1.9 CK-MB (CK-2) 5.9 H Troponin I 0.03 B-Natriuretic Peptide > 90594.0 H Total Protein 7.6 Albumin 3.2 L 09/13/19 09/13/19 06:28 06:28 WBC 4.6 RBC 3.06 L Hgb 9.0 L Hct 27.6 L MCV 90.1 MCH 29.4 MCHC 32.6 RDW 15.1 Plt Count 220 MPV 7.5 Absolute Neuts (auto) Neutrophils % Lymphocytes % Monocytes % Eosinophils % Basophils % Nucleated RBC % PT with INR INR Sodium 144 Potassium 3.9 Chloride 111 H Carbon Dioxide 24 Anion Gap 9 BUN 70.0 H Creatinine 6.2 H Est GFR (CKD-EPI)AfAm 10.54 Est GFR (CKD-EPI)NonAf 9.10 Random Glucose 153 H Calcium 7.4 L Phosphorus 4.9 Magnesium Total Bilirubin 0.3 AST 19 ALT 43 Alkaline Phosphatase 112 Creatine Kinase Creatine Kinase Index CK-MB (CK-2) Troponin I B-Natriuretic Peptide Total Protein 6.7 Albumin 2.8 L Active Medications Generic Name Dose Route Start Last Admin Trade Name Freq PRN Reason Stop Dose Admin Aspirin 81 mg 09/13/19 10:00 09/13/19 10:35 Ecotrin - PO 81 mg DAILY [facility] Administration Atorvastatin Calcium 80 mg 09/13/19 22:00 Lipitor - PO HS [facility] Clopidogrel Bisulfate 75 mg 09/13/19 10:00 09/13/19 10:35 Plavix - PO 75 mg DAILY [facility] Administration Ergocalciferol 50,000 unit 09/13/19 03:45 Drisdol - PO WEEKLY [facility] Heparin Sodium (Porcine) 5,000 unit 09/13/19 06:00 09/13/19 06:59 Heparin - SQ 5,000 unit TID [facility] Administration Sodium Chloride 250 mls @ 3,000 mls/hr 09/13/19 12:26 Normal Saline - IV 09/14/19 12:26 PRN PRN Hypotension during Dialysis Sodium Chloride 250 mls @ 3,000 mls/hr 09/13/19 14:20 Normal Saline - IV 09/14/19 14:19 PRN PRN Hypotension during Dialysis Labetalol HCl 200 mg 09/13/19 10:00 09/13/19 10:35 Normodyne - PO 200 mg BID [facility] Administration Losartan Potassium 50 mg 09/13/19 10:00 09/13/19 10:35 Cozaar - PO 50 mg DAILY [facility] Administration Nifedipine 60 mg 09/13/19 10:00 09/13/19 10:36 Procardia Xl - PO 60 mg DAILY [facility] Administration Pantoprazole Sodium 40 mg 09/13/19 10:00 09/13/19 10:36 Protonix - PO 40 mg DAILY [facility] Administration Tamsulosin HCl 0.4 mg 09/13/19 08:30 09/13/19 10:34 Flomax - PO 0.4 mg DAILY@0830 [facility] Administration Torsemide 80 mg 09/14/19 10:00 Demadex - PO DAILY [facility] ASSESSMENT/PLAN: ATTENDING PHYSICIAN STATEMENT I saw and evaluated the patient. I reviewed the resident's note and discussed the case with the resident. I agree with the resident's findings and plan as documented. SUBJECTIVE: Patient denies sob, chest pain or n/v OBJECTIVE: GENERAL: alert and oriented in no acute distress CVS: S1 S2 RRR no murmurs Lungs: clear to auscultation b/l no wheezing or crackles ABDOMEN: Soft, nontender, +BS EXTREMITIES: + edema no cyanosis ASSESSMENT AND PLAN: 59 yo M w/ ESRD (on HD T//) CAD, diastolic CHF, CVA in 2018, DM, HTN, HLD, schizophrenia presented w/ HTN and SOB # HTN urgency - resolved 2/2 medication non compliance and missed dialysis - c/w home meds # fluid overload 2/2 missed dialysis w/ possible concomitant acute on chronic diastolic CHF exacerbation - non complaint w/ meds - dialysis today - c/w torsemide - c/w asa, bblocker, statin - renal following appreciate recs # DMII - ISS # c/w rest of chronic home meds # dvt ppx: heparin subq
[2019-09-13 17:59] VITALS: BMI 29.6
[2019-09-13] MEDS: ATORVASTATIN CA 80 MG TABLET (FP) PO SCH (21:47)
[2019-09-14] MEDS: HEPARIN NA (PORCINE) 5,000 UNITS/ML 1ML VIAL SQ SCH ×3 (05:54→21:15)
[2019-09-14 06:35] LABS: EOS % 3.2 % (0-4.5); HEMOGLOBIN 8.9 GM/dL (11.7-16.9); LYMPH % 20.2 % (8-40); MCH 29.3 pg (25.7-33.7); MEAN CELL VOLUME 88.8 fl (80-96); MEAN PLT VOLUME 7.5 fl (7.5-11.1); MONO % 10.8 % (3.8-10.2); NEUT % 64.8 % (42.8-82.8); PLATELET COUNT 187 K/MM3 (134-434); RBC 3.04 M/mm3 (4.00-5.60); RDW 14.9 % (11.9-15.9); WHITE BLOOD COUNT 4.5 K/mm3 (4.0-10.0)
[2019-09-14 07:12] LABS: BLOOD UREA NITROGEN 40.9 mg/dL (7-18); CALCIUM 7.5 mg/dL (8.5-10.1); CREATININE 4.5 mg/dL (0.55-1.3); POTASSIUM 3.6 mmol/L (3.5-5.1)
[2019-09-14] MEDS: TAMSULOSIN HCL 0.4 MG CAP PO SCH (10:18)
[2019-09-14] MEDS: ASPIRIN COATED 81 MG TABLET.EC PO SCH (10:19)
[2019-09-14] MEDS: LOSARTAN POTASSIUM 50 MG TABLET (FP) PO SCH (10:19)
[2019-09-14] MEDS: TORSEMIDE 20 MG TABLET (FP) PO SCH (10:19)
[2019-09-14] MEDS: NIFEdipine E.R 60 MG TABLET PO SCH (10:20)
[2019-09-14] MEDS: CLOPIDOGREL BISULFATE 75 MG TABLET (FP) PO SCH (10:20)
[2019-09-14] MEDS: PANTOPRAZOLE 40 MG TABLET PO SCH (10:20)
[2019-09-14] MEDS: LABETALOL HCL 200 MG TABLET (FP) PO SCH ×2 (10:20→21:15)
--- NOTE | 2019-09-14 11:21 | PN ---
<Dragan Abdi - Last Filed: 09/14/19 11:28> Physical Exam: SUBJECTIVE: Patient seen and examined at bedside. He is s/p dialysis yesterday. feels better today. Pressure has been stable overnight. OBJECTIVE: Vital Signs Period Temp Pulse Resp BP Sys/Lopez Pulse Ox Last 24 Hr 97.6 F-98.6 F 71-80 18-18 116-149/54-91 96-96 GENERAL: A&Ox3, no acute distress EYES: PERRLA, EOMI NECK: No noted on exam LUNGS: CTA, no wheezes or crackles noted HEART: RRR, no murmurs ABDOMEN: Soft, nontender, BS present EXTREMITIES: 2+ pulses, 1+ edema bilaterally, significantly improved from yesterday, toe amputation noted Laboratory Results - last 24 hr 09/13/19 09/13/19 09/14/19 17:46 21:46 05:47 WBC 4.5 RBC 3.04 L Hgb 8.9 L Hct 27.0 L MCV 88.8 MCH 29.3 MCHC 33.0 RDW 14.9 Plt Count 187 MPV 7.5 Absolute Neuts (auto) 2.9 Neutrophils % 64.8 Lymphocytes % 20.2 Monocytes % 10.8 H Eosinophils % 3.2 Basophils % 1.0 Nucleated RBC % 0 Sodium Potassium Chloride Carbon Dioxide Anion Gap BUN Creatinine Est GFR (CKD-EPI)AfAm Est GFR (CKD-EPI)NonAf POC Glucometer 67 142 Random Glucose Calcium Iron TIBC Iron Saturation Unsaturated IBC Ferritin 09/14/19 05:47 WBC RBC Hgb Hct MCV MCH MCHC RDW Plt Count MPV Absolute Neuts (auto) Neutrophils % Lymphocytes % Monocytes % Eosinophils % Basophils % Nucleated RBC % Sodium 142 Potassium 3.6 Chloride 105 Carbon Dioxide 28 Anion Gap 9 BUN 40.9 H Creatinine 4.5 H Est GFR (CKD-EPI)AfAm 15.53 Est GFR (CKD-EPI)NonAf 13.40 POC Glucometer Random Glucose 133 H Calcium 7.5 L Iron 62 TIBC 239 L Iron Saturation 25 Unsaturated IBC 177 L Ferritin 474.8 H Active Medications Generic Name Dose Route Start Last Admin Trade Name Freq PRN Reason Stop Dose Admin Aspirin 81 mg 09/13/19 10:00 09/14/19 10:19 Ecotrin - PO 81 mg DAILY [facility] Administration Atorvastatin Calcium 80 mg 09/13/19 22:00 09/13/19 21:47 Lipitor - PO 80 mg HS [facility] Administration Clopidogrel Bisulfate 75 mg 09/13/19 10:00 09/14/19 10:20 Plavix - PO 75 mg DAILY [facility] Administration Ergocalciferol 50,000 unit 09/13/19 03:45 Drisdol - PO WEEKLY [facility] Heparin Sodium (Porcine) 5,000 unit 09/13/19 06:00 09/14/19 05:54 Heparin - SQ 5,000 unit TID [facility] Administration Sodium Chloride 250 mls @ 3,000 mls/hr 09/13/19 12:26 Normal Saline - IV 09/14/19 12:26 PRN PRN Hypotension during Dialysis Sodium Chloride 250 mls @ 3,000 mls/hr 09/13/19 14:20 Normal Saline - IV 09/14/19 14:19 PRN PRN Hypotension during Dialysis Labetalol HCl 200 mg 09/13/19 10:00 09/14/19 10:20 Normodyne - PO 200 mg BID [facility] Administration Losartan Potassium 50 mg 09/13/19 10:00 09/14/19 10:19 Cozaar - PO 50 mg DAILY [facility] Administration Nifedipine 60 mg 09/13/19 10:00 09/14/19 10:20 Procardia Xl - PO 60 mg DAILY [facility] Administration Pantoprazole Sodium 40 mg 09/13/19 10:00 09/14/19 10:20 Protonix - PO 40 mg DAILY [facility] Administration Tamsulosin HCl 0.4 mg 09/13/19 08:30 09/14/19 10:18 Flomax - PO 0.4 mg DAILY@0830 [facility] Administration Torsemide 80 mg 09/14/19 10:00 09/14/19 10:19 Demadex - PO 80 mg DAILY [facility] Administration ASSESSMENT/PLAN: 59 year old male with a history of ESRD, CAD, CHF, CVA (2018), diabetes, hypertension, hyperlipidemia here for hypertension and being treated for volume overload 2/2 to ESRD/CHF #ESRD: dialyzed yesterday per Dr. Quiroz -volume status improved -continue torsemide 80 daily -renal diet -Dr. Quiroz consulted #CHF: worsening edema with ejection fraction 50% found on echo 08/18, volume status is improving -daily weights -I's/O's -continue torsemide -will need outpatient followup with acid operator #Hypertensive Urgency: resolved, likely 2/2 medication non-compliance -continue losartan 50 daily -continue nifedipine ER 60 daily -continue labetalol 200 BID #Normocytic anemia -likely due to chronic renal disease, seen on prior labs -Hgb/Hct 10.3/32.2 -monitor cbc -iron studies done, appears to be anemia of chronic disease -FOBT ordered #Diabetes mellitus -ISS -BGMs ACHS #Prophylaxis -heparin SQ -protonix 40mg IV daily #FEN -No standing fluids -lytes wnl -diet ordered #Dispo -anticipate DC in 24 hours if remains stable Visit type - Emergency Visit Emergency Visit: No - New Patient This patient is new to me today: No - Critical Care Critical Care patient: No ATTENDING PHYSICIAN STATEMENT I saw and evaluated the patient. I reviewed the resident's note and discussed the case with the resident. I agree with the resident's findings and plan as documented. SUBJECTIVE: OBJECTIVE: ASSESSMENT AND PLAN: <Fay Hartley - Last Filed: 09/14/19 12:29> Physical Exam: SUBJECTIVE: Patient seen and examined OBJECTIVE: Vital Signs Period Temp Pulse Resp BP Sys/Lopez Pulse Ox Last 24 Hr 97.6 F-98.6 F 71-80 18-18 116-149/54-91 96-96 GENERAL: The patient is awake, alert, and fully oriented, in no acute distress. HEAD: Normal with no signs of trauma. EYES: PERRL, extraocular movements intact, sclera anicteric, conjunctiva clear. No ptosis. ENT: Ears normal, nares patent, oropharynx clear without exudates, moist mucous membranes. NECK: Trachea midline, full range of motion, supple. LUNGS: Breath sounds equal, clear to auscultation bilaterally, no wheezes, no crackles, no accessory muscle use. HEART: Regular rate and rhythm, S1, S2 without murmur, rub or gallop. ABDOMEN: Soft, nontender, nondistended, normoactive bowel sounds, no guarding, no rebound, no hepatosplenomegaly, no masses. EXTREMITIES: 2+ pulses, warm, well-perfused, no edema. NEUROLOGICAL: Cranial nerves II through XII grossly intact. Normal speech, gait not observed. PSYCH: Normal mood, normal affect. SKIN: Warm, dry, normal turgor, no rashes or lesions noted Laboratory Results - last 24 hr 09/13/19 09/13/19 09/14/19 17:46 21:46 05:47 WBC 4.5 RBC 3.04 L Hgb 8.9 L Hct 27.0 L MCV 88.8 MCH 29.3 MCHC 33.0 RDW 14.9 Plt Count 187 MPV 7.5 Absolute Neuts (auto) 2.9 Neutrophils % 64.8 Lymphocytes % 20.2 Monocytes % 10.8 H Eosinophils % 3.2 Basophils % 1.0 Nucleated RBC % 0 Sodium Potassium Chloride Carbon Dioxide Anion Gap BUN Creatinine Est GFR (CKD-EPI)AfAm Est GFR (CKD-EPI)NonAf POC Glucometer 67 142 Random Glucose Calcium Iron TIBC Iron Saturation Unsaturated IBC Ferritin 09/14/19 05:47 WBC RBC Hgb Hct MCV MCH MCHC RDW Plt Count MPV Absolute Neuts (auto) Neutrophils % Lymphocytes % Monocytes % Eosinophils % Basophils % Nucleated RBC % Sodium 142 Potassium 3.6 Chloride 105 Carbon Dioxide 28 Anion Gap 9 BUN 40.9 H Creatinine 4.5 H Est GFR (CKD-EPI)AfAm 15.53 Est GFR (CKD-EPI)NonAf 13.40 POC Glucometer Random Glucose 133 H Calcium 7.5 L Iron 62 TIBC 239 L Iron Saturation 25 Unsaturated IBC 177 L Ferritin 474.8 H Active Medications Generic Name Dose Route Start Last Admin Trade Name Freq PRN Reason Stop Dose Admin Aspirin 81 mg 09/13/19 10:00 09/14/19 10:19 Ecotrin - PO 81 mg DAILY [facility] Administration Atorvastatin Calcium 80 mg 09/13/19 22:00 09/13/19 21:47 Lipitor - PO 80 mg HS [facility] Administration Clopidogrel Bisulfate 75 mg 09/13/19 10:00 09/14/19 10:20 Plavix - PO 75 mg DAILY [facility] Administration Ergocalciferol 50,000 unit 09/13/19 03:45 Drisdol - PO WEEKLY [facility] Heparin Sodium (Porcine) 5,000 unit 09/13/19 06:00 09/14/19 05:54 Heparin - SQ 5,000 unit TID [facility] Administration Sodium Chloride 250 mls @ 3,000 mls/hr 09/13/19 12:26 Normal Saline - IV 09/14/19 12:26 PRN PRN Hypotension during Dialysis Sodium Chloride 250 mls @ 3,000 mls/hr 09/13/19 14:20 Normal Saline - IV 09/14/19 14:19 PRN PRN Hypotension during Dialysis Labetalol HCl 200 mg 09/13/19 10:00 09/14/19 10:20 Normodyne - PO 200 mg BID [facility] Administration Losartan Potassium 50 mg 09/13/19 10:00 09/14/19 10:19 Cozaar - PO 50 mg DAILY [facility] Administration Nifedipine 60 mg 09/13/19 10:00 09/14/19 10:20 Procardia Xl - PO 60 mg DAILY [facility] Administration Pantoprazole Sodium 40 mg 09/13/19 10:00 09/14/19 10:20 Protonix - PO 40 mg DAILY [facility] Administration Tamsulosin HCl 0.4 mg 09/13/19 08:30 09/14/19 10:18 Flomax - PO 0.4 mg DAILY@0830 [facility] Administration Torsemide 80 mg 09/14/19 10:00 09/14/19 10:19 Demadex - PO 80 mg DAILY [facility] Administration ASSESSMENT/PLAN: ATTENDING PHYSICIAN STATEMENT I saw and evaluated the patient. I reviewed the resident's note and discussed the case with the resident. I agree with the resident's findings and plan as documented. SUBJECTIVE: Patient denies sob, chest pain or n/v OBJECTIVE: GENERAL: alert and oriented in no acute distress CVS: S1 S2 RRR no murmurs Lungs: clear to auscultation b/l no wheezing or crackles ABDOMEN: Soft, nontender, +BS EXTREMITIES: + edema no cyanosis ASSESSMENT AND PLAN: 59 yo M w/ ESRD (on HD T//) CAD, diastolic CHF, CVA in 2018, DM, HTN, HLD, schizophrenia presented w/ HTN and SOB # HTN urgency - resolved 2/2 medication non compliance and missed dialysis - c/w home meds # fluid overload 2/2 missed dialysis w/ possible concomitant acute on chronic diastolic CHF exacerbation - non complaint w/ meds - dialysis yesterday w/ improvement in fluid status - c/w torsemide - c/w asa, bblocker, statin - renal following appreciate recs # DMII - ISS #Anemia of chronic disease in setting of ESRD - fobt ordered per renal recs # c/w rest of chronic home meds # dvt ppx: heparin subq
--- NOTE | 2019-09-14 13:54 | PN ---
Progress Note, Physician Chief Complaint: ESRD on HD/Fluid overload History of Present Illness: Seen and examined at the bedside feels better s/p dialysis yesterday with 3.5L UF no shortness of breath today, still has cough No N/V/D, chest pain, tolerating oral diet makes urine - Current Medication List Current Medications: Active Medications Aspirin (Ecotrin -) 81 mg PO DAILY [facility] Last Admin: 09/14/19 10:19 Dose: 81 mg Documented by: Atorvastatin Calcium (Lipitor -) 80 mg PO HS [facility] Last Admin: 09/13/19 21:47 Dose: 80 mg Documented by: Clopidogrel Bisulfate (Plavix -) 75 mg PO DAILY [facility] Last Admin: 09/14/19 10:20 Dose: 75 mg Documented by: Ergocalciferol (Drisdol -) 50,000 unit PO WEEKLY [facility] Heparin Sodium (Porcine) (Heparin -) 5,000 unit SQ TID [facility] Last Admin: 09/14/19 05:54 Dose: 5,000 unit Documented by: Sodium Chloride (Normal Saline -) 250 mls @ 3,000 mls/hr IV PRN PRN PRN Reason: Hypotension during Dialysis Stop: 09/14/19 14:19 Labetalol HCl (Normodyne -) 200 mg PO BID [facility] Last Admin: 09/14/19 10:20 Dose: 200 mg Documented by: Losartan Potassium (Cozaar -) 50 mg PO DAILY [facility] Last Admin: 09/14/19 10:19 Dose: 50 mg Documented by: Nifedipine (Procardia Xl -) 60 mg PO DAILY [facility] Last Admin: 09/14/19 10:20 Dose: 60 mg Documented by: Pantoprazole Sodium (Protonix -) 40 mg PO DAILY [facility] Last Admin: 09/14/19 10:20 Dose: 40 mg Documented by: Tamsulosin HCl (Flomax -) 0.4 mg PO DAILY@0830 [facility] Last Admin: 09/14/19 10:18 Dose: 0.4 mg Documented by: Torsemide (Demadex -) 80 mg PO DAILY [facility] Last Admin: 09/14/19 10:19 Dose: 80 mg Documented by: - Objective Vital Signs: Vital Signs Temperature 98.1 F 09/14/19 10:00 Pulse Rate 82 09/14/19 10:00 Respiratory Rate 18 09/14/19 10:00 Blood Pressure 159/94 09/14/19 10:00 O2 Sat by Pulse Oximetry (%) 96 09/13/19 21:00 Constitutional: Yes: No Distress, Calm Eyes: Yes: Conjunctiva Clear HENT: Yes: Atraumatic, Normocephalic Neck: Yes: Supple Cardiovascular: Yes: Regular Rate and Rhythm, S1, S2. No: Murmur, Rub Respiratory: Yes: Regular, CTA Bilaterally. No: On Nasal O2, Rales, Rhonchi, SOB, Wheezes Gastrointestinal: Yes: Normal Bowel Sounds, Soft. No: Distention, Tenderness Extremities: No: Cold, Cool, Cyanosis Edema: Yes Edema: LLE: Trace, RLE: Trace Neurological: Yes: Alert, Oriented Labs: CBC, BMP 09/14/19 05:47 09/14/19 05:47 INR, PTT INR 1.12 (0.83-1.09) H 09/13/19 00:02 Problem List - Problems (1) ESRD on dialysis Code(s): N18.6 - END STAGE RENAL DISEASE; Z99.2 - DEPENDENCE ON RENAL DIALYSIS (2) Fluid overload Code(s): E87.70 - FLUID OVERLOAD, UNSPECIFIED (3) CHF (congestive heart failure) Code(s): I50.9 - HEART FAILURE, UNSPECIFIED (4) Anemia Code(s): D64.9 - ANEMIA, UNSPECIFIED Qualifiers: Anemia type: unspecified type Qualified Code(s): D64.9 - Anemia, unspecified (5) History of CVA (cerebrovascular accident) Code(s): Z86.73 - PRSNL HX OF TIA (TIA), AND CEREB INFRC W/O RESID DEFICITS (6) Hypertension Code(s): I10 - ESSENTIAL (PRIMARY) HYPERTENSION Qualifiers: Hypertension type: unspecified Qualified Code(s): I10 - Essential (primary) hypertension (7) PAD (peripheral artery disease) Code(s): I73.9 - PERIPHERAL VASCULAR DISEASE, UNSPECIFIED (8) Shortness of breath Code(s): R06.02 - SHORTNESS OF BREATH Assessment/Plan 59 year old gentleman with history of ESRD on HD (TTS), DM, CHF, Hypertension who presented from home with swelling and elevated blood pressures. 1. ESRD on HD 2. Fluid overload/CHF 3. Hypertensive urgency 4. acute on chronic anemia 5. DM s/p dialysis yesterday with 3.5L UF no urgent need for dialysis today as lungs are clear and there are no overt electrolyte abnormalities will arrange for additional UF in AM and can resume regular dialysis on Continue Torsemide 80mg daily Continue pressent antihypertensives as BP is controlled Check stool for occult blood Will give RICHARD with HD check iron studies Renal diet, 1.2L fluid restriction Thank you Mansoor Quiroz DO
[2019-09-14] MEDS: ATORVASTATIN CA 80 MG TABLET (FP) PO SCH (21:15)
[2019-09-15] MEDS: HEPARIN NA (PORCINE) 5,000 UNITS/ML 1ML VIAL SQ SCH ×3 (06:40→21:53)
[2019-09-15 07:55] LABS: HEMATOCRIT 27.5 % (35.4-49); MCH 29.4 pg (25.7-33.7); MCHC 32.7 g/dl (32.0-35.9); MEAN CELL VOLUME 89.7 fl (80-96); MEAN PLT VOLUME 7.9 fl (7.5-11.1); PLATELET COUNT 193 K/MM3 (134-434); RBC 3.06 M/mm3 (4.00-5.60); RDW 15.1 % (11.9-15.9); WHITE BLOOD COUNT 4.5 K/mm3 (4.0-10.0)
[2019-09-15 08:08] LABS: BLOOD UREA NITROGEN 53.5 mg/dL (7-18); CALCIUM 7.2 mg/dL (8.5-10.1); CREATININE 5.6 mg/dL (0.55-1.3)
--- NOTE | 2019-09-15 08:48 | CONSULT ---
- Consultation REQUESTING PROVIDER: CONSULT REQUEST: We have been asked to surgically evaluate this patient for HD access in patient with Permacath PCP: Fay Hartley DO HISTORY OF PRESENT ILLNESS: 59M with a PMH of ESRD, CAD, CHF, CVA (2018), diabetes, HTN, and HLD who presents to the ER with elevated BP. The patient states that he ran out of 2/3 of his BP medications 1 week ago and he has had elevated BP readings since. He also endorses ROCHA but denies CP, fever, chills, nausea, vomiting, numbness, tingling, weakness, ataxia. He endorses shortness of breath at rest. Pt also states that his vision is slightly more blurry than normal. Denies any other acute complaints. Patient states he is Right hand dominant. Past History - Past Medical History Allergies/Adverse Reactions: Allergies Allergy/AdvReac Type Severity Reaction Status Date / Time cashew nut Allergy Verified 08/17/19 14:58 Home Medications: Ambulatory Orders Tamsulosin HCl [Flomax] 0.4 mg PO DAILY 05/10/19 Clopidogrel Bisulfate [Plavix] 75 mg PO DAILY 05/29/19 Ergocalciferol (Vitamin D2) [Vitamin D2] 50,000 unit PO WEEKLY 05/29/19 Glipizide 10 mg PO BID 05/29/19 Labetalol HCl [Normodyne -] 200 mg PO BID 05/29/19 Losartan Potassium 50 mg PO DAILY 05/29/19 Nifedipine [Procardia Xl] 60 mg PO DAILY 05/29/19 Aspirin Coated [Ecotrin -] 81 mg PO DAILY #30 tablet.ec 08/22/19 Atorvastatin Ca [Lipitor] 80 mg PO HS #30 tablet 08/22/19 Nifedipine ER [Procardia XL -] 60 mg PO DAILY tab.er.24 08/22/19 Pantoprazole Sodium [Protonix -] 40 mg PO DAILY #30 tablet.ec 08/22/19 Anemia: Yes Asthma: No Cancer: No Cardiac Disorders: Yes (STENT X2 year 2016) CVA: Yes COPD: No CHF: Yes Dementia: No Diabetes: Yes Dialysis: Yes permacath right chest GI Disorders: No Disorders: Yes (renal dialysis, tues,thur,sat with Rt chest permacath) HTN: Yes Hypercholesterolemia: Yes Liver Disease: No Seizures: Yes (states blood sugar sugar was elevated) Thyroid Disease: No - Surgical History Abdominal Surgery: No Appendectomy: No Cardiac Surgery: Yes (STENT X2) Cholecystectomy: No Lung Surgery: No Neurologic Surgery: No Orthopedic Surgery: Yes - Immunization History Immunization Up to Date: Yes - Psycho Social/Smoking Cessation Hx Smoking History: Never smoked Have you smoked in the past 12 months: No Hx Alcohol Use: No Drug/Substance Use Hx: No Substance Use Type: None Hx Substance Use Treatment: No Review of Systems - Review of Systems Able to Perform ROS?: Yes Comments:: GENERAL/CONSTITUTIONAL: No fever or chills. No weakness. HEAD, EYES, EARS, NOSE AND THROAT: + for blurry vision. No ear pain or discharge. No sore throat. CARDIOVASCULAR: No chest pain, palpitations, or lightheadedness. RESPIRATORY: + for shortness of breath. No cough, wheezing, or hemoptysis. GASTROINTESTINAL: No abdominal pain, nausea, vomiting, diarrhea, or constipation. GENITOURINARY: No dysuria, frequency, hematuria, or change in urination. MUSCULOSKELETAL: No joint or muscle swelling or pain. No neck or back pain. SKIN: No rash or lesions. NEUROLOGIC: + for headache. No numbness, tingling, focal weakness, loss of consciousness, or change in strength/sensation. ENDOCRINE: No increased thirst. No abnormal weight change. HEMATOLOGIC/LYMPHATIC: No anemia, easy bleeding, or history of blood clots. ALLERGIC/IMMUNOLOGIC: No hives or skin allergy. Is the patient limited Kinyarwanda proficient: No *Physical Exam - Vital Signs Vital Signs Temp 98.1 F 09/15/19 06:00 Pulse 76 09/15/19 06:00 Resp 18 09/15/19 06:00 BP 168/93 09/15/19 06:00 Pulse Ox 94 L 09/14/19 21:00 Intake & Output 09/14/19 09/15/19 09/15/19 23:59 11:59 23:59 Intake Total 810 490 Balance 810 490 Weight 241 lb Intake: IVPB 120 Oral 810 370 Other: Voiding Method Toilet Toilet # Unmeasured Voids Void 1 Bowel Movement Yes # Bowel Movements 1 Weight Measurement Method Standing Scale - Physical Exam GENERAL: Well developed, well nourished. Awake and alert. No acute distress. HEENT: Normocephalic, atraumatic. Hearing grossly normal. Moist mucous membranes. Sclera are non-icteric. PULMONARY: No evidence of respiratory distress. unlabored resp on RA EXTREMITIES: moving all extremities without limitation SKIN: Warm and dry. Normal capillary refill. No rashes. No jaundice. Permacath in right chest. NEUROLOGICAL: Alert, awake, appropriate. Cranial nerves 2-12 intact. Moving all 4 extremities. Normal speech. Gait is normal without ataxia. PSYCHIATRIC: Cooperative. Good eye contact. Appropriate mood and affect. Problem List - Problems (1) ESRD on dialysis Assessment/Plan: 59yo male with ESRD presents for HTN after being non-compliant with his BP medications. Patient currently using permacath for HD but will need AVF. -Vein mapping for Left UE for pre-op AVF planning -Dialysis per renal -f/u cardiology recommendations. -F/u with Dr. Ponce as outpatient this Friday or next Friday for AVF placement planning Evaluation and plan discussed with Dr Ponce. Code(s): N18.6 - END STAGE RENAL DISEASE; Z99.2 - DEPENDENCE ON RENAL DIALYSIS
--- NOTE | 2019-09-15 09:30 | PN ---
<Dragan Abdi - Last Filed: 09/15/19 11:13> Physical Exam: SUBJECTIVE: Patient seen and examined at bedside. reports no chest pain, shortness of breath, increasing edema, swelling OBJECTIVE: Vital Signs Period Temp Pulse Resp BP Sys/Lopez Pulse Ox Last 24 Hr 97.7 F-98.1 F 75-82 16-20 117-168/62-94 94 GENERAL: A&Ox3, no acute distress EYES: PERRLA, EOMI NECK: No noted on exam LUNGS: CTA, no wheezes or crackles noted HEART: RRR, no murmurs ABDOMEN: Soft, nontender, BS present EXTREMITIES: 2+ pulses, 1+ edema bilaterally Laboratory Results - last 24 hr 09/13/19 09/13/19 09/14/19 13:05 13:05 16:43 WBC RBC Hgb Hct MCV MCH MCHC RDW Plt Count MPV Sodium Potassium Chloride Carbon Dioxide Anion Gap BUN Creatinine Est GFR (CKD-EPI)AfAm Est GFR (CKD-EPI)NonAf POC Glucometer 150 Random Glucose Calcium Hep Bs Antigen Negative Hep C Ab Diagnostic <0.1 09/14/19 09/15/19 09/15/19 21:14 06:25 06:25 WBC 4.5 RBC 3.06 L Hgb 9.0 L Hct 27.5 L MCV 89.7 MCH 29.4 MCHC 32.7 RDW 15.1 Plt Count 193 MPV 7.9 Sodium 143 Potassium 4.0 Chloride 108 H Carbon Dioxide 28 Anion Gap 7 L BUN 53.5 H Creatinine 5.6 H Est GFR (CKD-EPI)AfAm 11.93 Est GFR (CKD-EPI)NonAf 10.29 POC Glucometer 151 Random Glucose 85 Calcium 7.2 L Hep Bs Antigen Hep C Ab Diagnostic Active Medications Generic Name Dose Route Start Last Admin Trade Name Freq PRN Reason Stop Dose Admin Aspirin 81 mg 09/13/19 10:00 09/14/19 10:19 Ecotrin - PO 81 mg DAILY SANGEETHA Administration Atorvastatin Calcium 80 mg 09/13/19 22:00 09/14/19 21:15 Lipitor - PO 80 mg HS SANGEETHA Administration Clopidogrel Bisulfate 75 mg 09/13/19 10:00 09/14/19 10:20 Plavix - PO 75 mg DAILY SANGEETHA Administration Ergocalciferol 50,000 unit 09/13/19 03:45 Drisdol - PO WEEKLY SANGEETHA Heparin Sodium (Porcine) 5,000 unit 09/13/19 06:00 09/15/19 06:40 Heparin - SQ 5,000 unit TID SANGEETHA Administration Labetalol HCl 200 mg 09/13/19 10:00 09/14/19 21:15 Normodyne - PO 200 mg BID SANGEETHA Administration Losartan Potassium 50 mg 09/13/19 10:00 09/14/19 10:19 Cozaar - PO 50 mg DAILY SANGEETHA Administration Nifedipine 60 mg 09/13/19 10:00 09/14/19 10:20 Procardia Xl - PO 60 mg DAILY SANGEETHA Administration Pantoprazole Sodium 40 mg 09/13/19 10:00 09/14/19 10:20 Protonix - PO 40 mg DAILY SANGEETHA Administration Tamsulosin HCl 0.4 mg 09/13/19 08:30 09/14/19 10:18 Flomax - PO 0.4 mg DAILY@0830 SANGEETHA Administration Torsemide 80 mg 09/14/19 10:00 09/14/19 10:19 Demadex - PO 80 mg DAILY SANGEETHA Administration ASSESSMENT/PLAN: 59 year old male with a history of ESRD, CAD, CHF, CVA (2018), diabetes, hypertension, hyperlipidemia here for hypertension and being treated for volume overload 2/2 to ESRD/CHF #ESRD: dialysis per Dr. Quiroz -volume status improved -continue torsemide 80 daily -renal diet -Dr. 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 #Hypertensive Urgency: continues to remain hypertensive -continue losartan 50 daily -continue nifedipine ER 60 daily -continue labetalol 200 BID #Normocytic anemia -likely due to chronic renal disease, seen on prior labs -Hgb/Hct 10.3/32.2 -monitor cbc -iron studies done, appears to be anemia of chronic disease -FOBT ordered #Diabetes mellitus -ISS -BGMs ACHS #Prophylaxis -heparin SQ -protonix 40mg IV daily #FEN -No standing fluids -lytes wnl -diet ordered #Dispo -anticipate DC when dialysis access is assessed Visit type - Emergency Visit Emergency Visit: No - New Patient This patient is new to me today: No - Critical Care Critical Care patient: No ATTENDING PHYSICIAN STATEMENT I saw and evaluated the patient. I reviewed the resident's note and discussed the case with the resident. I agree with the resident's findings and plan as documented. SUBJECTIVE: OBJECTIVE: ASSESSMENT AND PLAN: <Fay Hartley - Last Filed: 09/15/19 13:36> Physical Exam: SUBJECTIVE: Patient seen and examined OBJECTIVE: Vital Signs Period Temp Pulse Resp BP Sys/Lopez Pulse Ox Last 24 Hr 97.7 F-98.1 F 75-81 16-20 117-168/62-93 94 GENERAL: The patient is awake, alert, and fully oriented, in no acute distress. HEAD: Normal with no signs of trauma. EYES: PERRL, extraocular movements intact, sclera anicteric, conjunctiva clear. No ptosis. ENT: Ears normal, nares patent, oropharynx clear without exudates, moist mucous membranes. NECK: Trachea midline, full range of motion, supple. LUNGS: Breath sounds equal, clear to auscultation bilaterally, no wheezes, no crackles, no accessory muscle use. HEART: Regular rate and rhythm, S1, S2 without murmur, rub or gallop. ABDOMEN: Soft, nontender, nondistended, normoactive bowel sounds, no guarding, no rebound, no hepatosplenomegaly, no masses. EXTREMITIES: 2+ pulses, warm, well-perfused, no edema. NEUROLOGICAL: Cranial nerves II through XII grossly intact. Normal speech, gait not observed. PSYCH: Normal mood, normal affect. SKIN: Warm, dry, normal turgor, no rashes or lesions noted Laboratory Results - last 24 hr 09/13/19 09/13/19 09/14/19 13:05 13:05 05:47 WBC RBC Hgb Hct MCV MCH MCHC RDW Plt Count MPV Sodium Potassium Chloride Carbon Dioxide Anion Gap BUN Creatinine Est GFR (CKD-EPI)AfAm Est GFR (CKD-EPI)NonAf POC Glucometer Random Glucose Calcium Transferrin 224 Hep Bs Antigen Negative Hep C Ab Diagnostic <0.1 09/14/19 09/14/19 09/15/19 16:43 21:14 06:25 WBC 4.5 RBC 3.06 L Hgb 9.0 L Hct 27.5 L MCV 89.7 MCH 29.4 MCHC 32.7 RDW 15.1 Plt Count 193 MPV 7.9 Sodium Potassium Chloride Carbon Dioxide Anion Gap BUN Creatinine Est GFR (CKD-EPI)AfAm Est GFR (CKD-EPI)NonAf POC Glucometer 150 151 Random Glucose Calcium Transferrin Hep Bs Antigen Hep C Ab Diagnostic 09/15/19 06:25 WBC RBC Hgb Hct MCV MCH MCHC RDW Plt Count MPV Sodium 143 Potassium 4.0 Chloride 108 H Carbon Dioxide 28 Anion Gap 7 L BUN 53.5 H Creatinine 5.6 H Est GFR (CKD-EPI)AfAm 11.93 Est GFR (CKD-EPI)NonAf 10.29 POC Glucometer Random Glucose 85 Calcium 7.2 L Transferrin Hep Bs Antigen Hep C Ab Diagnostic Active Medications Generic Name Dose Route Start Last Admin Trade Name Freq PRN Reason Stop Dose Admin Aspirin 81 mg 09/13/19 10:00 09/15/19 09:41 Ecotrin - PO 81 mg DAILY SANGEETHA Administration Atorvastatin Calcium 80 mg 09/13/19 22:00 09/14/19 21:15 Lipitor - PO 80 mg HS SANGEETHA Administration Clopidogrel Bisulfate 75 mg 09/13/19 10:00 09/15/19 09:41 Plavix - PO 75 mg DAILY SANGEETHA Administration Ergocalciferol 50,000 unit 09/13/19 03:45 Drisdol - PO WEEKLY SANGEETHA Heparin Sodium (Porcine) 5,000 unit 09/13/19 06:00 09/15/19 06:40 Heparin - SQ 5,000 unit TID SANGEETHA Administration Sodium Chloride 250 mls @ 3,000 mls/hr 09/15/19 11:33 Normal Saline - IV 09/16/19 11:33 PRN PRN Hypotension during Dialysis Labetalol HCl 200 mg 09/13/19 10:00 09/15/19 09:42 Normodyne - PO 200 mg BID SANGEETHA Administration Losartan Potassium 50 mg 09/13/19 10:00 09/15/19 09:42 Cozaar - PO 50 mg DAILY SANGEETHA Administration Nifedipine 90 mg 09/15/19 13:07 Procardia Xl - PO DAILY SANGEETHA Pantoprazole Sodium 40 mg 09/13/19 10:00 09/15/19 09:42 Protonix - PO 40 mg DAILY SANGEETHA Administration Tamsulosin HCl 0.4 mg 09/13/19 08:30 09/15/19 09:42 Flomax - PO 0.4 mg DAILY@0830 SANGEETHA Administration Torsemide 80 mg 09/14/19 10:00 09/15/19 09:41 Demadex - PO 80 mg DAILY SANGEETHA Administration ASSESSMENT/PLAN: ATTENDING PHYSICIAN STATEMENT I saw and evaluated the patient. I reviewed the resident's note and discussed the case with the resident. I agree with the resident's findings and plan as documented. SUBJECTIVE: Patient states that his breathing is "heavy" but overall improving. Denies chest pain, abdominal pain or n/v OBJECTIVE: GENERAL: alert and oriented in no acute distress CVS: S1 S2 RRR no murmurs Lungs: clear to auscultation b/l no wheezing or crackles ABDOMEN: Soft, nontender, +BS EXTREMITIES: + edema no cyanosis ASSESSMENT AND PLAN: 59 yo M w/ ESRD (on HD T/) CAD, diastolic CHF, CVA in 2018, DM, HTN, HLD, schizophrenia presented w/ HTN and SOB # HTN urgency - resolved 2/2 medication non compliance and missed dialysis - c/w home meds - Nifedepine increased to 90 mg po daily # fluid overload 2/2 missed dialysis w/ possible concomitant acute on chronic diastolic CHF exacerbation - non complaint w/ meds - dialysis on 09/12 w/ improvement in fluid status. Isolated UF today per Renal - c/w torsemide - c/w asa, bblocker, statin - renal following appreciate recs # DMII - ISS #Anemia of chronic disease in setting of ESRD - fobt ordered per renal recs # c/w rest of chronic home meds # dvt ppx: heparin subq
[2019-09-15] MEDS: ASPIRIN COATED 81 MG TABLET.EC PO SCH (09:41)
[2019-09-15] MEDS: CLOPIDOGREL BISULFATE 75 MG TABLET (FP) PO SCH (09:41)
[2019-09-15] MEDS: TORSEMIDE 20 MG TABLET (FP) PO SCH (09:41)
[2019-09-15] MEDS: LABETALOL HCL 200 MG TABLET (FP) PO SCH ×2 (09:42→21:54)
[2019-09-15] MEDS: TAMSULOSIN HCL 0.4 MG CAP PO SCH (09:42)
[2019-09-15] MEDS: PANTOPRAZOLE 40 MG TABLET PO SCH (09:42)
[2019-09-15] MEDS: NIFEdipine E.R 60 MG TABLET PO SCH (09:42)
[2019-09-15] MEDS: LOSARTAN POTASSIUM 50 MG TABLET (FP) PO SCH (09:42)
[2019-09-15] MEDS ORDERED: SODIUM CHLORIDE 250 ML IV PRN ×2 (11:30→21:59)
--- NOTE | 2019-09-15 13:07 | PN ---
Progress Note, Physician Chief Complaint: ESRD on HD/Fluid overload History of Present Illness: Seen and examined at the bedside continues to have shortness of breath minimal cough no sputum production for isolated UF today No N/V/D, chest pain, tolerating oral diet makes urine - Current Medication List Current Medications: Active Medications Aspirin (Ecotrin -) 81 mg PO DAILY [facility] Last Admin: 09/15/19 09:41 Dose: 81 mg Documented by: Atorvastatin Calcium (Lipitor -) 80 mg PO HS [facility] Last Admin: 09/14/19 21:15 Dose: 80 mg Documented by: Clopidogrel Bisulfate (Plavix -) 75 mg PO DAILY [facility] Last Admin: 09/15/19 09:41 Dose: 75 mg Documented by: Ergocalciferol (Drisdol -) 50,000 unit PO WEEKLY [facility] Heparin Sodium (Porcine) (Heparin -) 5,000 unit SQ TID [facility] Last Admin: 09/15/19 06:40 Dose: 5,000 unit Documented by: Sodium Chloride (Normal Saline -) 250 mls @ 3,000 mls/hr IV PRN PRN PRN Reason: Hypotension during Dialysis Stop: 09/16/19 11:33 Labetalol HCl (Normodyne -) 200 mg PO BID [facility] Last Admin: 09/15/19 09:42 Dose: 200 mg Documented by: Losartan Potassium (Cozaar -) 50 mg PO DAILY [facility] Last Admin: 09/15/19 09:42 Dose: 50 mg Documented by: Nifedipine (Procardia Xl -) 60 mg PO DAILY [facility] Last Admin: 09/15/19 09:42 Dose: 60 mg Documented by: Pantoprazole Sodium (Protonix -) 40 mg PO DAILY [facility] Last Admin: 09/15/19 09:42 Dose: 40 mg Documented by: Tamsulosin HCl (Flomax -) 0.4 mg PO DAILY@0830 [facility] Last Admin: 09/15/19 09:42 Dose: 0.4 mg Documented by: Torsemide (Demadex -) 80 mg PO DAILY [facility] Last Admin: 09/15/19 09:41 Dose: 80 mg Documented by: - Objective Vital Signs: Vital Signs Temperature 98.1 F 09/15/19 06:00 Pulse Rate 76 09/15/19 06:00 Respiratory Rate 18 09/15/19 06:00 Blood Pressure 168/93 09/15/19 06:00 O2 Sat by Pulse Oximetry (%) 94 L 09/14/19 21:00 Constitutional: Yes: No Distress, Calm Eyes: Yes: Conjunctiva Clear HENT: Yes: Atraumatic Neck: Yes: Supple Cardiovascular: Yes: Regular Rate and Rhythm Respiratory: Yes: CTA Bilaterally, Diminished. No: Rales, Rhonchi, Wheezes Gastrointestinal: Yes: Normal Bowel Sounds, Soft Extremities: No: Cold, Cool, Cyanosis Edema: Yes Edema: LLE: Trace, RLE: Trace Peripheral Pulses WNL: No Integumentary: No: Rash Neurological: Yes: Alert, Oriented Psychiatric: Yes: Alert, Oriented Labs: CBC, BMP 09/15/19 06:25 09/15/19 06:25 INR, PTT INR 1.12 (0.83-1.09) H 09/13/19 00:02 Problem List - Problems (1) ESRD on dialysis Code(s): N18.6 - END STAGE RENAL DISEASE; Z99.2 - DEPENDENCE ON RENAL DIALYSIS (2) Fluid overload Code(s): E87.70 - FLUID OVERLOAD, UNSPECIFIED (3) CHF (congestive heart failure) Code(s): I50.9 - HEART FAILURE, UNSPECIFIED (4) Anemia Code(s): D64.9 - ANEMIA, UNSPECIFIED Qualifiers: Anemia type: unspecified type Qualified Code(s): D64.9 - Anemia, unspecified (5) History of CVA (cerebrovascular accident) Code(s): Z86.73 - PRSNL HX OF TIA (TIA), AND CEREB INFRC W/O RESID DEFICITS (6) Hypertension Code(s): I10 - ESSENTIAL (PRIMARY) HYPERTENSION Qualifiers: Hypertension type: unspecified Qualified Code(s): I10 - Essential (primary) hypertension (7) PAD (peripheral artery disease) Code(s): I73.9 - PERIPHERAL VASCULAR DISEASE, UNSPECIFIED (8) Shortness of breath Code(s): R06.02 - SHORTNESS OF BREATH Assessment/Plan 59 year old gentleman with history of ESRD on HD (TTS), DM, CHF, Hypertension who presented from home with swelling and elevated blood pressures. 1. ESRD on HD 2. Fluid overload/CHF 3. Hypertensive urgency 4. acute on chronic anemia 5. DM for isolated UF today with goal fluid removal of 2.5L will plan for regular dialysis on Continue Torsemide 80mg daily Increase Nifedpine ER to 90mg daily for better BP control Check stool for occult blood Will give RICHARD with HD check iron studies Renal diet, 1.2L fluid restriction Thank you Mansoor Quiroz DO
[2019-09-15] MEDS: ATORVASTATIN CA 80 MG TABLET (FP) PO SCH (21:54)
[2019-09-16] MEDS: HEPARIN NA (PORCINE) 5,000 UNITS/ML 1ML VIAL SQ SCH ×3 (05:32→21:10)
[2019-09-16] MEDS: TAMSULOSIN HCL 0.4 MG CAP PO SCH (09:43)
[2019-09-16 11:01] LABS: HEMATOCRIT 27.2 % (35.4-49); HEMOGLOBIN 8.8 GM/dL (11.7-16.9); MCH 29.1 pg (25.7-33.7); MCHC 32.2 g/dl (32.0-35.9); MEAN CELL VOLUME 90.4 fl (80-96); MEAN PLT VOLUME 8.1 fl (7.5-11.1); PLATELET COUNT 163 K/MM3 (134-434); RBC 3.01 M/mm3 (4.00-5.60); RDW 15.1 % (11.9-15.9); WHITE BLOOD COUNT 4.8 K/mm3 (4.0-10.0)
--- NOTE | 2019-09-16 11:04 | PN ---
Progress Note (short form) - Note Progress Note: [facility] Awaiting vein mapping for avf placement. They will try to do today. Will book once vein mapping is done Luis Manuel Ponce DO
[2019-09-16] MEDS ORDERED: EPOETIN ALFA 10,000 UNIT/1 ML VIAL IVPUSH ONE (11:30)
[2019-09-16 11:32] LABS: BLOOD UREA NITROGEN 68.4 mg/dL (7-18); CALCIUM 7.2 mg/dL (8.5-10.1); CREATININE 6.5 mg/dL (0.55-1.3); PHOSPHOROUS 4.4 mg/dL (2.5-4.9)
--- NOTE | 2019-09-16 12:28 | PN ---
Teaching Attending Note Name of Resident: Dragan Abdi ATTENDING PHYSICIAN STATEMENT I saw and evaluated the patient. I reviewed the resident's note and discussed the case with the resident. I agree with the resident's findings and plan as documented. improvement in SOB denies chest pain OBJECTIVE: GENERAL: alert and oriented in no acute distress CVS: S1 S2 RRR no murmurs Lungs: clear to auscultation b/l no wheezing or crackles ABDOMEN: Soft, nontender, +BS EXTREMITIES: + edema no cyanosis ASSESSMENT AND PLAN: 59 yo M w/ ESRD (on HD T//) CAD, diastolic CHF, CVA in 2018, DM, HTN, HLD, schizophrenia presented w/ HTN and SOB. Admitted for HTN urgecy resolved 2/2 medication non compliance and missed dialysis. Resumed on home meds. Also noted to be fluid overloaded 2/2 missed dialysis and possible concomitant acute on chronic diastolic CHF exacerbation (patient non compliant w/ meds) . Received dialysis on admission, UF yesterday and dialysis scheduled for today. Plan for continuation of torsemide 90 mg po daily. Overall improvement in fluid status. Vascular also saw the patient for AV graft placement to be done outpatient. Plan for vein mapping today and d/c post dialysis.
[2019-09-16] MEDS: PANTOPRAZOLE 40 MG TABLET PO SCH (14:52)
[2019-09-16] MEDS: LABETALOL HCL 200 MG TABLET (FP) PO SCH ×2 (14:53→21:09)
[2019-09-16] MEDS: TORSEMIDE 20 MG TABLET (FP) PO SCH (14:53)
[2019-09-16] MEDS: CLOPIDOGREL BISULFATE 75 MG TABLET (FP) PO SCH (14:53)
[2019-09-16] MEDS: ASPIRIN COATED 81 MG TABLET.EC PO SCH (14:54)
[2019-09-16] MEDS: NIFEdipine E.R. 90 MG TABLET PO SCH (14:54)
[2019-09-16] MEDS: LOSARTAN POTASSIUM 50 MG TABLET (FP) PO SCH (14:54)
[2019-09-16 15:00] LABS: BLOOD UREA NITROGEN 24.7 mg/dL (7-18); CREATININE 2.8 mg/dL (0.55-1.3)
--- NOTE | 2019-09-16 15:09 | PN ---
Physical Exam: SUBJECTIVE: Patient seen and examined at bedside. No further shortness of breath. OBJECTIVE: Vital Signs Period Temp Pulse Resp BP Sys/Lopez Pulse Ox Last 24 Hr 97.0 F-99.1 F 70-80 18-18 111-190/62-109 94 GENERAL: A&Ox3, no acute distress EYES: PERRLA, EOMI NECK: No noted on exam LUNGS: CTA, no wheezes or crackles noted HEART: RRR, no murmurs ABDOMEN: Soft, nontender, BS present EXTREMITIES: 2+ pulses, 1+ edema bilaterally Laboratory Results - last 24 hr 09/15/19 09/15/19 09/16/19 16:50 21:52 05:31 WBC RBC Hgb Hct MCV MCH MCHC RDW Plt Count MPV Sodium Potassium Chloride Carbon Dioxide Anion Gap BUN Creatinine Est GFR (CKD-EPI)AfAm Est GFR (CKD-EPI)NonAf POC Glucometer 139 142 98 Random Glucose Calcium Phosphorus 09/16/19 09/16/19 09/16/19 10:25 10:25 14:11 WBC 4.8 RBC 3.01 L Hgb 8.8 L Hct 27.2 L MCV 90.4 MCH 29.1 MCHC 32.2 RDW 15.1 Plt Count 163 MPV 8.1 Sodium 143 Potassium 4.0 Chloride 107 Carbon Dioxide 27 Anion Gap 10 BUN 68.4 H 24.7 H Creatinine 6.5 H 2.8 H Est GFR (CKD-EPI)AfAm 9.96 27.57 Est GFR (CKD-EPI)NonAf 8.59 23.79 POC Glucometer Random Glucose 181 H Calcium 7.2 L Phosphorus 4.4 Active Medications Generic Name Dose Route Start Last Admin Trade Name Freq PRN Reason Stop Dose Admin Aspirin 81 mg 09/13/19 10:00 09/16/19 14:54 Ecotrin - PO 81 mg DAILY SANGEETHA Administration Atorvastatin Calcium 80 mg 09/13/19 22:00 09/15/19 21:54 Lipitor - PO 80 mg HS SANGEETHA Administration Clopidogrel Bisulfate 75 mg 09/13/19 10:00 09/16/19 14:53 Plavix - PO 75 mg DAILY SANGEETHA Administration Ergocalciferol 50,000 unit 09/21/19 10:00 Drisdol - PO [facility] Heparin Sodium (Porcine) 5,000 unit 09/13/19 06:00 09/16/19 14:54 Heparin - SQ 5,000 unit TID SANGEETHA Administration Sodium Chloride 250 mls @ 3,000 mls/hr 09/15/19 21:59 Normal Saline - IV 09/16/19 21:59 PRN PRN Hypotension during Dialysis Labetalol HCl 200 mg 09/13/19 10:00 09/16/19 14:53 Normodyne - PO 200 mg BID SANGEETHA Administration Losartan Potassium 50 mg 09/13/19 10:00 09/16/19 14:54 Cozaar - PO 50 mg DAILY SANGEETHA Administration Nifedipine 90 mg 09/15/19 13:07 09/16/19 14:54 Procardia Xl - PO 90 mg DAILY SANGEETHA Administration Pantoprazole Sodium 40 mg 09/13/19 10:00 09/16/19 14:52 Protonix - PO 40 mg DAILY SANGEETHA Administration Tamsulosin HCl 0.4 mg 09/13/19 08:30 09/16/19 09:43 Flomax - PO 0.4 mg DAILY@0830 SANGEETHA Administration Torsemide 80 mg 09/14/19 10:00 09/16/19 14:53 Demadex - PO 80 mg DAILY SANGEETHA Administration ASSESSMENT/PLAN: 59 year old male with a history of ESRD, CAD, CHF, CVA (2018), diabetes, hypertension, hyperlipidemia here for hypertension and being treated for volume overload 2/2 to ESRD/CHF #ESRD: dialysis per Dr. Quiroz, today, 3.5L removed -volume status improved -continue torsemide 80 daily -renal diet -Dr. 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 #Hypertensive Urgency: continues to remain hypertensive -continue losartan 50 daily -continue nifedipine ER 90 daily -continue labetalol 200 BID #Normocytic anemia -likely due to chronic renal disease, seen on prior labs -Hgb/Hct 10.3/32.2 -monitor cbc -iron studies done, appears to be anemia of chronic disease -FOBT ordered #Diabetes mellitus -ISS -BGMs ACHS #Prophylaxis -heparin SQ -protonix 40mg IV daily #FEN -No standing fluids -lytes wnl -diet ordered #Dispo -anticipate DC when dialysis access is assessed Visit type - Emergency Visit Emergency Visit: No - New Patient This patient is new to me today: No - Critical Care Critical Care patient: No ATTENDING PHYSICIAN STATEMENT I saw and evaluated the patient. I reviewed the resident's note and discussed the case with the resident. I agree with the resident's findings and plan as documented. SUBJECTIVE: OBJECTIVE: ASSESSMENT AND PLAN:
[2019-09-16] MEDS ORDERED: LABETALOL HCL 100 MG TABLET (FP) PO ONE (16:37)
--- NOTE | 2019-09-16 18:28 | PN ---
Progress Note, Physician Chief Complaint: ESRD on HD/Fluid overload History of Present Illness: Seen and examined at the bedside has cough, sob improved minimal cough no sputum production s/p dialysis today with 3.5L UF BP high after dialysis but likely due to BP meds being held in the morning du eot planned dialysis No N/V/D, chest pain, tolerating oral diet makes urine - Current Medication List Current Medications: Active Medications Aspirin (Ecotrin -) 81 mg PO DAILY [facility] Last Admin: 09/16/19 14:54 Dose: 81 mg Documented by: Atorvastatin Calcium (Lipitor -) 80 mg PO HS [facility] Last Admin: 09/15/19 21:54 Dose: 80 mg Documented by: Clopidogrel Bisulfate (Plavix -) 75 mg PO DAILY [facility] Last Admin: 09/16/19 14:53 Dose: 75 mg Documented by: Ergocalciferol (Drisdol -) 50,000 unit PO Tu [facility] Heparin Sodium (Porcine) (Heparin -) 5,000 unit SQ TID [facility] Last Admin: 09/16/19 14:54 Dose: 5,000 unit Documented by: Sodium Chloride (Normal Saline -) 250 mls @ 3,000 mls/hr IV PRN PRN PRN Reason: Hypotension during Dialysis Stop: 09/16/19 21:59 Labetalol HCl (Normodyne -) 200 mg PO BID [facility] Last Admin: 09/16/19 14:53 Dose: 200 mg Documented by: Losartan Potassium (Cozaar -) 50 mg PO DAILY [facility] Last Admin: 09/16/19 14:54 Dose: 50 mg Documented by: Nifedipine (Procardia Xl -) 90 mg PO DAILY [facility] Last Admin: 09/16/19 14:54 Dose: 90 mg Documented by: Pantoprazole Sodium (Protonix -) 40 mg PO DAILY [facility] Last Admin: 09/16/19 14:52 Dose: 40 mg Documented by: Tamsulosin HCl (Flomax -) 0.4 mg PO DAILY@0830 [facility] Last Admin: 09/16/19 09:43 Dose: 0.4 mg Documented by: Torsemide (Demadex -) 80 mg PO DAILY [facility] Last Admin: 09/16/19 14:53 Dose: 80 mg Documented by: - Objective Vital Signs: Vital Signs Temperature 98.8 F 09/16/19 16:35 Pulse Rate 76 09/16/19 16:35 Respiratory Rate 18 09/16/19 16:35 Blood Pressure 185/92 H 09/16/19 16:35 O2 Sat by Pulse Oximetry (%) 95 09/16/19 09:00 Constitutional: Yes: Well Nourished, No Distress Eyes: Yes: Conjunctiva Clear HENT: Yes: Atraumatic Neck: Yes: Supple Cardiovascular: Yes: Regular Rate and Rhythm. No: Murmur, Rub Respiratory: Yes: CTA Bilaterally. No: Rales, Rhonchi, Wheezes Gastrointestinal: Yes: Normal Bowel Sounds, Soft Edema: No Neurological: Yes: Alert, Oriented Labs: CBC, BMP 09/16/19 10:25 09/16/19 14:11 INR, PTT INR 1.12 (0.83-1.09) H 09/13/19 00:02 Problem List - Problems (1) ESRD on dialysis Code(s): N18.6 - END STAGE RENAL DISEASE; Z99.2 - DEPENDENCE ON RENAL DIALYSIS (2) Fluid overload Code(s): E87.70 - FLUID OVERLOAD, UNSPECIFIED (3) CHF (congestive heart failure) Code(s): I50.9 - HEART FAILURE, UNSPECIFIED (4) Anemia Code(s): D64.9 - ANEMIA, UNSPECIFIED Qualifiers: Anemia type: unspecified type Qualified Code(s): D64.9 - Anemia, unspecified (5) History of CVA (cerebrovascular accident) Code(s): Z86.73 - PRSNL HX OF TIA (TIA), AND CEREB INFRC W/O RESID DEFICITS (6) Hypertension Code(s): I10 - ESSENTIAL (PRIMARY) HYPERTENSION Qualifiers: Hypertension type: unspecified Qualified Code(s): I10 - Essential (primary) hypertension (7) PAD (peripheral artery disease) Code(s): I73.9 - PERIPHERAL VASCULAR DISEASE, UNSPECIFIED (8) Shortness of breath Code(s): R06.02 - SHORTNESS OF BREATH Assessment/Plan 59 year old gentleman with history of ESRD on HD (TTS), DM, CHF, Hypertension who presented from home with swelling and elevated blood pressures. 1. ESRD on HD 2. Fluid overload/CHF 3. Hypertensive urgency 4. acute on chronic anemia 5. DM tolerated dialysis today with UF of 3.5L next planned dialysis is Friday Continue Torsemide 80mg daily Continue present antihypertensvie meds, uncontrolled pressure now likely related to holding am BP meds Will give RICHARD with HD check iron studies Renal diet, 1.2L fluid restriction awaiting vein mapping of the arm anticipate discharge home in AM if BP is controlled can pursue dialysis access placement as an outpatient Thank you Mansoor Quiroz DO
[2019-09-16] MEDS: ATORVASTATIN CA 80 MG TABLET (FP) PO SCH (21:09)
[2019-09-17] MEDS: HEPARIN NA (PORCINE) 5,000 UNITS/ML 1ML VIAL SQ SCH ×2 (05:37→13:57)
[2019-09-17] MEDS: NIFEdipine E.R. 90 MG TABLET PO SCH (09:05)
[2019-09-17] MEDS: ASPIRIN COATED 81 MG TABLET.EC PO SCH (09:05)
[2019-09-17] MEDS: LOSARTAN POTASSIUM 50 MG TABLET (FP) PO SCH (09:05)
[2019-09-17] MEDS: CLOPIDOGREL BISULFATE 75 MG TABLET (FP) PO SCH (09:05)
[2019-09-17] MEDS: TORSEMIDE 20 MG TABLET (FP) PO SCH (09:05)
[2019-09-17] MEDS: PANTOPRAZOLE 40 MG TABLET PO SCH (09:05)
[2019-09-17] MEDS: LABETALOL HCL 200 MG TABLET (FP) PO SCH (09:05)
[2019-09-17] MEDS: TAMSULOSIN HCL 0.4 MG CAP PO SCH (09:06)
--- NOTE | 2019-09-17 12:21 | PN ---
Progress Note, Physician Chief Complaint: ESRD on HD/Fluid overload History of Present Illness: Seen and examined at the bedside Feels better no shortness of breath or cough this am denies any cp, fever, chills, N/V/D making urine s/p dialysis yesterday BP much better this am - Current Medication List Current Medications: Active Medications Aspirin (Ecotrin -) 81 mg PO DAILY [facility] Last Admin: 09/17/19 09:05 Dose: 81 mg Documented by: Atorvastatin Calcium (Lipitor -) 80 mg PO HS [facility] Last Admin: 09/16/19 21:09 Dose: 80 mg Documented by: Clopidogrel Bisulfate (Plavix -) 75 mg PO DAILY [facility] Last Admin: 09/17/19 09:05 Dose: 75 mg Documented by: Ergocalciferol (Drisdol -) 50,000 unit PO Tu [facility] Heparin Sodium (Porcine) (Heparin -) 5,000 unit SQ TID [facility] Last Admin: 09/17/19 05:37 Dose: 5,000 unit Documented by: Labetalol HCl (Normodyne -) 200 mg PO BID [facility] Last Admin: 09/17/19 09:05 Dose: 200 mg Documented by: Losartan Potassium (Cozaar -) 50 mg PO DAILY [facility] Last Admin: 09/17/19 09:05 Dose: 50 mg Documented by: Nifedipine (Procardia Xl -) 90 mg PO DAILY [facility] Last Admin: 09/17/19 09:05 Dose: 90 mg Documented by: Pantoprazole Sodium (Protonix -) 40 mg PO DAILY [facility] Last Admin: 09/17/19 09:05 Dose: 40 mg Documented by: Tamsulosin HCl (Flomax -) 0.4 mg PO DAILY@0830 [facility] Last Admin: 09/17/19 09:06 Dose: 0.4 mg Documented by: Torsemide (Demadex -) 80 mg PO DAILY [facility] Last Admin: 09/17/19 09:05 Dose: 80 mg Documented by: - Objective Vital Signs: Vital Signs Temperature 98.4 F 09/17/19 10:00 Pulse Rate 70 09/17/19 10:00 Respiratory Rate 18 09/17/19 10:00 Blood Pressure 137/74 09/17/19 10:00 O2 Sat by Pulse Oximetry (%) 95 09/17/19 08:43 Constitutional: Yes: No Distress, Calm HENT: Yes: Atraumatic, Normocephalic Neck: Yes: Supple Cardiovascular: Yes: Regular Rate and Rhythm Respiratory: Yes: Regular, CTA Bilaterally. No: On Nasal O2, Rales, Rhonchi, SOB, Wheezes Gastrointestinal: Yes: Normal Bowel Sounds, Soft. No: Tenderness Extremities: No: Cold, Cool, Cyanosis Edema: No Labs: CBC, BMP 09/16/19 10:25 09/16/19 14:11 INR, PTT INR 1.12 (0.83-1.09) H 09/13/19 00:02 Problem List - Problems (1) ESRD on dialysis Code(s): N18.6 - END STAGE RENAL DISEASE; Z99.2 - DEPENDENCE ON RENAL DIALYSIS (2) Fluid overload Code(s): E87.70 - FLUID OVERLOAD, UNSPECIFIED (3) CHF (congestive heart failure) Code(s): I50.9 - HEART FAILURE, UNSPECIFIED (4) Anemia Code(s): D64.9 - ANEMIA, UNSPECIFIED Qualifiers: Anemia type: unspecified type Qualified Code(s): D64.9 - Anemia, unspecified (5) History of CVA (cerebrovascular accident) Code(s): Z86.73 - PRSNL HX OF TIA (TIA), AND CEREB INFRC W/O RESID DEFICITS (6) Hypertension Code(s): I10 - ESSENTIAL (PRIMARY) HYPERTENSION Qualifiers: Hypertension type: unspecified Qualified Code(s): I10 - Essential (primary) hypertension (7) PAD (peripheral artery disease) Code(s): I73.9 - PERIPHERAL VASCULAR DISEASE, UNSPECIFIED (8) Shortness of breath Code(s): R06.02 - SHORTNESS OF BREATH Assessment/Plan 59 year old gentleman with history of ESRD on HD (TTS), DM, CHF, Hypertension who presented from home with swelling and elevated blood pressures. 1. ESRD on HD 2. Fluid overload/CHF 3. Hypertensive urgency 4. acute on chronic anemia 5. DM no acute need for dialysis today next planned dialysis is Friday Continue Torsemide 80mg daily Continue present antihypertensvie meds Will give RICHARD with HD Renal diet, 1.2L fluid restriction awaiting vein mapping of the arm to be done this am anticipate discharge home after vein mapping can pursue dialysis access placement as an outpatient Thank you Mansoor Quiroz DO
--- NOTE | 2019-09-17 13:56 | DS ---
Physical Exam: SUBJECTIVE: Patient seen and examined at bedside. No endorsement of cp, sob, n,v,d,f,c. OBJECTIVE: Vital Signs Period Temp Pulse Resp BP Sys/Lopez Pulse Ox Last 24 Hr 98.2 F-98.9 F 70-78 18-18 117-190/66-107 95-95 PHYSICAL EXAM GENERAL: A&Ox3, no acute distress EYES: PERRLA, EOMI NECK: No noted on exam LUNGS: CTA, no wheezes or crackles noted HEART: RRR, no murmurs ABDOMEN: Soft, nontender, BS present EXTREMITIES: 2+ pulses, 1+ edema bilaterally LABS Laboratory Results - last 24 hr 09/16/19 14:11 BUN 24.7 H Creatinine 2.8 H Est GFR (CKD-EPI)AfAm 27.57 Est GFR (CKD-EPI)NonAf 23.79 HOSPITAL COURSE: Date of Admission:09/13/19 59 y.o. ESRD (on HD /fri, missed today's HD), CAD, CHF, CVA in 2018, DM, HTN, HLD, schizophrenia presenting for findings of high BP readings at home and found to be volume overloaded. Patient's BP improved after torsemide was given at 80mg daily as well as nifedipine increased to 90mg daily. Patient was dialyzed twice during the hospitalization. He received vein mapping for fistula/graft placement and was discharged home with close followup to his PCP and Dr. Ponce, his vascular surgeon to be scheduled for surgery for access ~. Date of Discharge: 09/17/19 Minutes to complete discharge: 35 Discharge Summary Problems reviewed: Yes Reason For Visit: CORONARY ARTERY DISEASE Current Active Problems ESRD on dialysis (Acute) Fluid overload (Acute) CAD (coronary artery disease) (Chronic) CHF (congestive heart failure) (Chronic) CKD (chronic kidney disease) stage 4, GFR 15-29 ml/min (Chronic) Type 2 diabetes mellitus with diabetic neuropathy, unspecified (Chronic) Condition: Stable - Instructions Diet, Activity, Other Instructions: You were admitted to the hospital for management of high blood pressure and fluid overload You were dialyzed while here Medical Recommendations: -Please continue to take Torsemide 80mg once a day, pick it up from your pharmacy when you leave the hospital -We Increased your nifedipine to 90mg, please pick this up from the pharmacy and stop taking your old dosage of nifedipine -Make sure not to miss your dialysis appointments, your next one is TOMORROW, FRIDAY the 17 of September -Please take all of your other home medications as prescribed before *Make an appointment with your primary care doctor within 1 week of discharge *Make an appointment with your clean out driller helper within 1 week of discharge Necessary Referrals Please make an appointment with the vascular surgeon Dr. Luis Manuel Ponce for Friday to discuss getting permanent vascular access for you to get long-term dialysis. This is very important. We have included the information for Dr. Ponce in your discharge packet *If you experience any fevers, chills, nausea, vomiting, diarrhea, severe headache, chest pain or shortness of breath, please return to the hospital immediately. Referrals: Waldemar Eid MD [Primary Care Provider] - 1 Week Luis Manuel Ponce DO [Staff Physician] - 09/17/19 Mansoor Quiroz MD [Staff Physician] - 1 Week Disposition: HOME - Home Medications Comprehensive Discharge Medication List: Ambulatory Orders Tamsulosin HCl [Flomax] 0.4 mg PO DAILY 05/10/19 Clopidogrel Bisulfate [Plavix] 75 mg PO DAILY 05/29/19 Ergocalciferol (Vitamin D2) [Vitamin D2] 50,000 unit PO WEEKLY 05/29/19 Glipizide 10 mg PO BID 05/29/19 Labetalol HCl [Normodyne -] 200 mg PO BID 05/29/19 Losartan Potassium 50 mg PO DAILY 05/29/19 Aspirin Coated [Ecotrin -] 81 mg PO DAILY #30 tablet.ec 08/22/19 Atorvastatin Ca [Lipitor] 80 mg PO HS #30 tablet 08/22/19 Pantoprazole Sodium [Protonix -] 40 mg PO DAILY #30 tablet.ec 08/22/19 Nifedipine ER [Procardia XL -] 90 mg PO DAILY #30 tab.er.24 09/15/19 Torsemide [Demadex -] 80 mg PO DAILY #30 tablet 09/15/19 This patient is new to me today: No Emergency Visit: No Critical Care patient: No - Discharge Referral Referred to [facility] Med [facility].C[facility] No ATTENDING PHYSICIAN STATEMENT I saw and evaluated the patient. I reviewed the resident's note and discussed the case with the resident. I agree with the resident's findings and plan as documented. SUBJECTIVE: OBJECTIVE: ASSESSMENT AND PLAN:
--- NOTE | 2019-09-17 14:20 | PN ---
Teaching Attending Note Name of Resident: Dragan Abdi ATTENDING PHYSICIAN STATEMENT I saw and evaluated the patient. I reviewed the resident's note and discussed the case with the resident. I agree with the resident's findings and plan as documented. SUBJECTIVE: Patient seen and examined at bedside, feels OK, in good spirits, awaiting vein mapping then stable for DC home. OBJECTIVE: GENERAL: alert and oriented in no acute distress CVS: S1, S2+, RRR, no m/r/g Lungs: CTAB, no crackles or wheezing ABDOMEN: Soft, nontender, +BS, no guarding EXTREMITIES: no LE edema, no calf tenderness, moving all 4 ext. Vital Signs - 24 hr 09/16/19 09/16/19 09/16/19 14:50 16:35 21:00 Temperature 98.8 F 98.8 F Pulse Rate 78 76 Respiratory 18 18 Rate Blood Pressure 190/107 H 185/92 H O2 Sat by Pulse 95 Oximetry (%) 09/16/19 09/17/19 09/17/19 22:00 02:00 06:00 Temperature 98.9 F 98.2 F 98.2 F Pulse Rate 78 73 70 Respiratory 18 18 18 Rate Blood Pressure 156/72 140/72 117/66 O2 Sat by Pulse Oximetry (%) 09/17/19 09/17/19 08:43 10:00 Temperature 98.4 F Pulse Rate 70 Respiratory 18 18 Rate Blood Pressure 137/74 O2 Sat by Pulse 95 Oximetry (%) Laboratory Results - last 24 hr 09/16/19 14:11 BUN 24.7 H Creatinine 2.8 H Est GFR (CKD-EPI)AfAm 27.57 Est GFR (CKD-EPI)NonAf 23.79 Current Medications Generic Name Dose Route Start Last Admin Trade Name Freq PRN Reason Stop Dose Admin Aspirin 81 mg 09/13/19 10:00 09/17/19 09:05 Ecotrin - PO 81 mg DAILY SANGEETHA Administration Atorvastatin Calcium 80 mg 09/13/19 22:00 09/16/19 21:09 Lipitor - PO 80 mg HS SANGEETHA Administration Clopidogrel Bisulfate 75 mg 09/13/19 10:00 09/17/19 09:05 Plavix - PO 75 mg DAILY S[facility] Administration Ergocalciferol 50,000 unit 09/21/19 10:00 Drisdol - PO Tu COUNT [facility] Heparin Sodium (Porcine) 5,000 unit 09/13/19 06:00 09/17/19 13:57 Heparin - SQ 5,000 unit TID SANGEETHA Administration Labetalol HCl 200 mg 09/13/19 10:00 09/17/19 09:05 Normodyne - PO 200 mg BID SANGEETHA Administration Losartan Potassium 50 mg 09/13/19 10:00 09/17/19 09:05 Cozaar - PO 50 mg DAILY S[facility] Administration Nifedipine 90 mg 09/15/19 13:07 09/17/19 09:05 Procardia Xl - PO 90 mg DAILY [facility] Administration Pantoprazole Sodium 40 mg 09/13/19 10:00 09/17/19 09:05 Protonix - PO 40 mg DAILY S[facility] Administration Tamsulosin HCl 0.4 mg 09/13/19 08:30 09/17/19 09:06 Flomax - PO 0.4 mg DAILY@0830 S[facility]ET[facility] Administration Torsemide 80 mg 09/14/19 10:00 09/17/19 09:05 Demadex - PO 80 mg DAILY S[facility] Administration Home Medications Medication Instructions Recorded Tamsulosin HCl [Flomax] 0.4 mg PO DAILY 05/10/19 Clopidogrel Bisulfate [Plavix] 75 mg PO DAILY 05/29/19 Ergocalciferol (Vitamin D2) 50,000 unit PO WEEKLY 05/29/19 [Vitamin D2] Glipizide 10 mg PO BID 05/29/19 Labetalol HCl [Normodyne -] 200 mg PO BID 05/29/19 Losartan Potassium 50 mg PO DAILY 05/29/19 Aspirin Coated [Ecotrin -] 81 mg PO DAILY #30 tablet.ec 08/22/19 Atorvastatin Ca [Lipitor] 80 mg PO HS #30 tablet 08/22/19 Pantoprazole Sodium [Protonix -] 40 mg PO DAILY #30 tablet.ec 08/22/19 Nifedipine ER [Procardia XL -] 90 mg PO DAILY #30 tab.er.24 09/15/19 Torsemide [Demadex -] 80 mg PO DAILY #30 tablet 09/15/19 ASSESSMENT AND PLAN: 59 year old AA Male, h/o ESRD, CAD, HFpEF, CVA (2018), T2DM, HTN, HLD, obesity admitted for volume overload and acute CHFE requiring HD. ESRD on HD s/p HD removal of 1.5L, feels well, no uremic sx needs vein mapping then stable to DC with outpatient follow up next HD Friday Renal consult Vascular consult HFpEF clinically euvolemic Cont. Torsemide, BB, Plavix, ARB (K stable) HTN urgency now BP improved cont. home BP meds DASH diet, compliance reinforced T2DM cont. ISS, basal insulin as inpatient resume home DM meds HLD cont. statin CVA cont. statin, ASA obesity counseled on diet/exercise/weight loss Dispositon: DC home with outpatient follow up with HD sessions, renal clinic and PCP.
[2019-09-17 15:12] VITALS: BP 147/77; PULSE 76; TEMP 98.2
[2019-09-21] MEDS ORDERED: ERGOCALCIFEROL (VIT D2) 50,000 UNIT (1.25 MG) CAPSULE PO SCH (10:00)
== END 2019-09-17 16:29 | disposition home or self-care (01) | DRG 425 ==
LOC: JER 22:19 → JERBED 09-13 01:25 → J4S 09-13 17:21
PROVIDERS: ADMIT Internal Medicine
PROC: 5A1D70Z Performance of Urinary Filtration, Intermittent, Less than 6 Hours Per Day (ICD-10-PCS; principal; 2019-09-16)
DX: E87.70 Fluid overload, unspecified (principal); I16.0 Hypertensive urgency; I13.2 Hypertensive heart and chronic kidney disease with heart failure and with stage 5 chronic kidney disease, or end stage renal disease; N18.6 End stage renal disease; I50.33 Acute on chronic diastolic (congestive) heart failure; I25.10 Atherosclerotic heart disease of native coronary artery without angina pectoris; F20.9 Schizophrenia, unspecified; E78.5 Hyperlipidemia, unspecified; D63.1 Anemia in chronic kidney disease; Z99.2 Dependence on renal dialysis; E66.9 Obesity, unspecified; Z68.28 Body mass index [BMI] 28.0-28.9, adult; E11.40 Type 2 diabetes mellitus with diabetic neuropathy, unspecified; E11.22 Type 2 diabetes mellitus with diabetic chronic kidney disease; Z91.14 Patient's other noncompliance with medication regimen; E11.65 Type 2 diabetes mellitus with hyperglycemia
CPT/HCPCS: 36415; 70450-TC; 71045-TC-FY; 80048; 80053; 82550; 82553; 82565; 82728; 82962; 83540; 83550; 83735; 83880; 84100; 84466; 84484; 84520; 85025; 85027; 85610; 86803; 87340; 93005; 93010; 93931; 93971; 97116-GP; 97161-GP; 99285-25; J0885; J1644; Q5106

== ENCOUNTER 2020-02-11 04:31 | Day surgery (SDC) | payer OTHER ==
[2020-02-10 14:16] VITALS: BMI 28.1
[~2020-02-11 04:31] MED LIST: LIDOCAINE HCL 1%, 10 MG/ML (20ML VIAL) PNB ONE
--- NOTE | 2020-02-11 09:06 | HP ---
Admitting History and Physical - Admission Chief Complaint: Stenosis of left avf. Here for venogram today History Source: Patient Limitations to Obtaining History: No Limitations - Smoking History Smoking history: Never smoked Have you smoked in the past 12 months: No Home Medications - Allergies Allergies/Adverse Reactions: Allergies Allergy/AdvReac Type Severity Reaction Status Date / Time cashew nut Allergy Severe Swelling Verified 02/11/20 07:09 - Home Medications Home Medications: Ambulatory Orders Aspirin [ASA -] 81 mg PO DAILY 02/10/20 Atorvastatin Ca [Lipitor] 80 mg PO HS 02/10/20 Clopidogrel Bisulfate [Plavix -] 75 mg PO DAILY 02/10/20 Ergocalciferol (Vitamin D2) [Vitamin D2] 50,000 unit PO WEEKLY 02/10/20 Glipizide 10 mg PO DAILY 02/10/20 Labetalol HCl [Normodyne -] 200 mg PO BID 02/10/20 Losartan Potassium 50 mg PO DAILY 02/10/20 Nifedipine ER [Procardia Xl -] 90 mg PO DAILY 02/10/20 Pantoprazole Sodium 40 mg PO DAILY 02/10/20 Tamsulosin HCl 0.4 mg PO DAILY 02/10/20 Torsemide [Demadex] 80 mg PO DAILY 02/10/20 Review of Systems - Review of Systems Constitutional: reports: No Symptoms Eyes: reports: No Symptoms HENT: reports: No Symptoms Neck: reports: No Symptoms Cardiovascular: reports: No Symptoms Respiratory: reports: No Symptoms Gastrointestinal: reports: No Symptoms Genitourinary: reports: No Symptoms Breasts: reports: No Symptoms Reported Musculoskeletal: reports: No Symptoms Integumentary: reports: No Symptoms Neurological: reports: No Symptoms Endocrine: reports: No Symptoms Hematology/Lymphatic: reports: No Symptoms Psychiatric: reports: No Symptoms Physical Examination Vital Signs: Vital Signs Temperature 97.5 F L 02/11/20 06:54 Pulse Rate 78 02/11/20 06:54 Respiratory Rate 18 02/11/20 06:54 Blood Pressure 154/92 02/11/20 06:54 O2 Sat by Pulse Oximetry (%) 97 02/11/20 06:54 Constitutional: Yes: Well Nourished, No Distress, Calm Eyes: Yes: WNL, Conjunctiva Clear, EOM Intact HENT: Yes: WNL, Atraumatic, Normocephalic Neck: Yes: WNL, Supple, Trachea Midline Cardiovascular: Yes: WNL, Regular Rate and Rhythm Respiratory: Yes: WNL, Regular, CTA Bilaterally Gastrointestinal: Yes: WNL, Normal Bowel Sounds Musculoskeletal: Yes: WNL Extremities: Yes: WNL Edema: No Integumentary: Yes: WNL Neurological: Yes: WNL, Alert, Oriented ...Motor Strength: WNL Psychiatric: Yes: WNL Labs: CBC, BMP 02/11/20 06:24 Problem List - Problems (1) ESRD (end stage renal disease) Assessment/Plan: For venogram of avf today Luis Manuel Ponce DO Problems reviewed: Yes Code(s): N18.6 - END STAGE RENAL DISEASE
[2020-02-11] MEDS ORDERED: MIDAZOLAM HCL 2 MG/2 ML SINGLE DOSE VIAL ONE ×2 (09:09)
[2020-02-11] MEDS ORDERED: PROPOFOL 20 ML ONE ×2 (09:09)
[2020-02-11] MEDS ORDERED: HEPARIN NA (PORCINE) 5,000 UNITS/ML 1ML VIAL ONE (09:32)
[2020-02-11] MEDS ORDERED: LABETALOL HCL 5 MG/1 ML (100MG/20 ML VIAL) ONE (09:37)
--- NOTE | 2020-02-11 10:00 | OP ---
Operative Note - Note: Operative Date: 02/11/20 Pre-Operative Diagnosis: ESRD Operation: venogram, venoplasty left avf Findings: fistula dilated to 7mm Post-Operative Diagnosis: Same as Pre-op Surgeon: Luis Manuel Ponce Anesthesia: MAC Estimated Blood Loss (mls): 30 Operative Report Dictated: Yes
[2020-02-11] MEDS ORDERED: oxyCODONE HCL 5 MG TABLET PO PRN (10:04)
[2020-02-11] MEDS ORDERED: ONDANSETRON 4 MG/2 ML VIAL IVPUSH PRN (10:04)
[2020-02-11] MEDS ORDERED: PROMETHAZINE HCL 25 MG/1 ML VIAL IVPUSH PRN (10:04)
[2020-02-11 11:32] VITALS: TEMP 98
[2020-02-11 12:20] VITALS: PULSE 69
[2020-02-11 12:35] VITALS: BP 178/98
--- NOTE | 2020-02-16 14:14 | OP ---
DATE OF OPERATION: 02/11/2020 PREOPERATIVE DIAGNOSIS: Immature arteriovenous fistula with stenosis. POSTOPERATIVE DIAGNOSIS: Immature arteriovenous fistula with stenosis. PROCEDURE: Venogram and venoplasty of left arteriovenous fistula. SURGEON: Luis Manuel Faith DO ANESTHESIA: Fractional. BLOOD LOSS: 20 mL. The patient is a 59-year-old male who has a left AV fistula that is immature. He needs to have balloon maturation. Patient came in through ambulatory surgery. Patient was COVID negative. Patient was cleared by Cardiology. Patient was consented for the procedure, understanding all risks, benefits, alternatives, and then taken to the operating room. Once in the operating room, he was laid on the operating table in supine manner and the area of the left arm was prepped and draped in a sterile surgical manner. Under ultrasound guidance, we were able to visualize the proximal AV fistula and the distal AV fistula. We then went ahead and went to the distal AV fistula in the upper arm, and under ultrasound guidance, 10 mL lidocaine 1% was injected over the cephalic vein. We then took our micropuncture needle and punctured the vein. Micropuncture wire was inserted, micropuncture sheath was inserted. A traditional short 6-[place] sheath was inserted. We then placed a 0.035 floppy guidewire down towards the anastomosis and across it into the brachial artery. We then administered 5000 units of IV heparin to the patient After 3 minutes, we used a 7 x 8 balloon and performed venoplasty of the entire body of the AV fistula. We then used an 8 x 8 [place] balloon and performed venoplasty of the body of the AV fistula. Completion venogram now showed that the anastomosis was patent and the vein was fully dilated. At this point, we used a 4-0 Biosyn suture and a [id number] stitch was placed around our sheath and the sheath was pulled. The patient tolerated this procedure with no complications. Dermabond was placed at the site and patient was transferred to PACU in stable condition. LUIS MANUEL FAITH DO DONATION SPECIALIST/[id number]
== END 2020-02-11 12:30 | disposition home or self-care (01) ==
LOC: MERGE 04:31 → JASU-SURG 04:31
PROVIDERS: ATTEND Surgery Vascular Surgery
PROC: 03WY3JZ Revision of Synthetic Substitute in Upper Artery, Percutaneous Approach (ICD-10-PCS; principal; 2020-02-11 08:30)
DX: T82.858A Stenosis of other vascular prosthetic devices, implants and grafts, initial encounter (principal); I12.0 Hypertensive chronic kidney disease with stage 5 chronic kidney disease or end stage renal disease; N18.6 End stage renal disease
CPT/HCPCS: 36415; 76000-TC-FY; 82962; 84132; 86850; 86900; 86901; 94760; J1644

== ENCOUNTER 2020-03-14 13:33 | Inpatient (IN) | payer OTHER ==
[2020-03-14 14:06] LABS: BASO % 0.9 % (0-2.0); EOS % 2.3 % (0-4.5); HEMATOCRIT 25.6 % (35.4-49); HEMOGLOBIN 8.4 GM/dL (11.7-16.9); LYMPH % 8.3 % (8-40); MCH 29.9 pg (25.7-33.7); MCHC 32.7 g/dl (32.0-35.9); MEAN CELL VOLUME 91.6 fl (80-96); MEAN PLT VOLUME 7.1 fl (7.5-11.1); MONO % 6.6 % (3.8-10.2); NEUT % 81.9 % (42.8-82.8); PLATELET COUNT 253 K/MM3 (134-434); RBC 2.79 M/mm3 (4.00-5.60); RDW 13.9 % (11.9-15.9); WHITE BLOOD COUNT 7.4 K/mm3 (4.0-10.0)
--- NOTE | 2020-03-14 14:09 | PDOC ---
History of Present Illness - General Chief Complaint: Weakness Stated Complaint: SOB Time Seen by Provider: 03/14/20 13:39 History Source: Patient, EMS, Old Records Exam Limitations: No Limitations - History of Present Illness Initial Comments: 03/14/20 14:09 Jaxson Prater is a 59M with PMH HTN, NIDDM s/p left big toe amputation, ESRD on [facility] HD, CAD s/p 2x stenting 2017, presenting with SOB and fatigue after missing HD. Last HD 5 days ago last . Says he feels dizzy after HD but has been doing okay. Over the weekend felt SOB, room-spinning dizzinessm and weakness that prevented him from going to HD, missed on session, now due today. Denies any swelling, fevers, chills, N/V, C/D, abd pain, palpitations, chest pain. Has never had SOB like this in the past, no history of pulmonary disease, has 2x cardiac stents in place after stress test showed occlusion but has never had MA or CVA. Per EMS given SL nitro for SOB which relieved symptoms, 12-lead normal. Gets HD via chest port, Renal Dr. Quiroz. Still makes urine. Has not taken PO medications today, last yesterday morning. NKDA. Past History - Medical History Allergies/Adverse Reactions: Allergies Allergy/AdvReac Type Severity Reaction Status Date / Time cashew nut Allergy Verified 02/25/20 15:18 Home Medications: Ambulatory Orders Tamsulosin HCl [Flomax] 0.4 mg PO DAILY 05/10/19 Clopidogrel Bisulfate [Plavix] 75 mg PO DAILY 05/29/19 Pantoprazole Sodium [Protonix -] 40 mg PO DAILY #30 tablet.ec 08/22/19 Torsemide [Demadex -] 80 mg PO DAILY #30 tablet 09/15/19 Aspirin [ASA -] 81 mg PO DAILY 02/10/20 Atorvastatin Ca [Lipitor] 80 mg PO HS 02/10/20 Ergocalciferol (Vitamin D2) [Vitamin D2] 50,000 unit PO WEEKLY 02/10/20 Glipizide 10 mg PO DAILY 02/10/20 Labetalol HCl [Normodyne -] 200 mg PO BID 02/10/20 Losartan Potassium 50 mg PO DAILY 02/10/20 Nifedipine ER [Procardia Xl -] 90 mg PO DAILY 08/06/20 Anemia: No Asthma: No Cancer: No Cardiac Disorders: Yes (CAD) CVA: No COPD: No CHF: No Dementia: No Diabetes: Yes Dialysis: Yes (fistula rt upper chest) GI Disorders: No Disorders: No HTN: Yes Hypercholesterolemia: No Liver Disease: No Seizures: No Thyroid Disease: No - Surgical History Abdominal Surgery: No Appendectomy: No Cardiac Surgery: Yes (stents 2017) Cholecystectomy: No Lung Surgery: No Neurologic Surgery: No Orthopedic Surgery: Yes (Left Great Toe amputation) - Immunization History Immunization Up to Date: Yes - Psycho-Social/Smoking History Smoking History: Never smoked Have you smoked in the past 12 months: No Review of Systems - Review of Systems Constitutional: No: Symptoms Reported HEENTM: No: Symptoms Reported Respiratory: Yes: Shortness of Breath, SOB with Exertion, SOB at Rest. No: Wheezing, Productive cough Cardiac (ROS): No: Chest Pain, Irregular Heart Rate, Lightheadedness, Palpi tations, Syncope ABD/GI: No: Symptoms Reported, Constipated, Diarrhea, Nausea, Poor Appetite, Poor Fluid Intake, Vomiting : No: Symptoms Reported Musculoskeletal: No: Symptoms Reported Integumentary: No: Symptoms Reported Neurological: Yes: Weakness, Dizziness. No: Numbness, Paresthesia Endocrine: No: Symptoms Reported Hematologic/Lymphatic: No: Symptoms Reported All Other Systems: Reviewed and Negative *Physical Exam - Physical Exam General Appearance: Yes: Nourished, Appropriately Dressed, Obese, Other (ressting comfortably in bed, deep breathing). No: Apparent Distress HEENT: positive: EOMI, DANIEL, Normal Voice, Symmetrical, Pharynx Normal, Hearing Grossly Normal. negative: Scleral Icterus (R), Scleral Icterus (L), Pharyngeal Erythema, Tonsillar Exudate, Tonsillar Erythema Neck: positive: Normal Thyroid, Supple. negative: Tender, Rigid, Lymphadenopathy (L), Tender lateral, Tender midline Respiratory/Chest: positive: Normal Breath Sounds, Crackles (L base). negative: Chest Tender, Lungs Clear, Respiratory Distress, Accessory Muscle Use, Labored Respiration Cardiovascular: positive: Regular Rhythm, Regular Rate. negative: Murmur Gastrointestinal/Abdominal: positive: Normal Bowel Sounds, Flat, Soft. negative: Tender, Guarding, Hernia Extremity: positive: Normal Capillary Refill, Normal Inspection, Normal Range of Motion, Pelvis Stable, Other (amputation of L big toe). negative: Tender, Pedal Edema, Swelling, Calf Tenderness Integumentary: positive: Normal Color, Dry, Warm. negative: Cold, Clammy, Diaphoresis Neurologic: positive: Fully Oriented, Alert, Normal Response, Motor Strength 5/5 ED Treatment Course - LABORATORY CBC & Chemistry Diagram: 03/14/20 13:50 03/14/20 13:50 Medical Decision Making - Medical Decision Making 03/14/20 14:09 Patient presents with SOB and weakness in the setting of missing scheduled HD 3 days ago, does not appear overloaded on exam but likely needs HD given crackles and SOB. Ordering CBC/CMP/CP/BNP/UA/UC/CXR/ECG for eval SOB. Contacted Dr. Quiroz who is aware of patient, will set up HD later today with admission. ECG NSR with HR 92, QTc 472, isolated DIVINA in V3 with high voltage, possible artifact, otherwise no TWI CXR port in place, congestive changes, possible atelectasis vs. effusion to L base. 03/14/20 14:59 Labs notable for: - Hgb 8.4, likely 2/2 ESRD - Cr 10.1, missed HD - K 6.0, ECG possible peaked T waves but will pre-treat with insulin/D50 and Ca - CP WNL Patient will need admission to Med/Surg for need for HD. 03/14/20 15:55 Discussed case with admitting team, accepted for Med/Surg with HD today. Discharge - Discharge Information Problems reviewed: Yes Clinical Impression/Diagnosis: ESRD (end stage renal disease), Hyperkalemia, Hypocalcemia Anemia Qualifiers: Anemia type: unspecified type Qualified Code(s): D64.9 - Anemia, unspecified Condition: Stable - Admission Yes - Follow up/Referral Referrals: Waldemar Eid MD [Primary Care Provider] - - Patient Discharge Instructions - Post Discharge Activity
--- NOTE | 2020-03-14 14:18 | PDOC ---
Attending Attestation - Resident Resident Name: José Miguel De Santiago - ED Attending Attestation I have performed the following: I have examined & evaluated the patient, The case was reviewed & discussed with the resident, I agree w/resident's findings & plan - HPI HPI: 03/14/20 14:17 Jaxson Prater is a 59M with PMH HTN, NIDDM s/p left big toe amputation, ESRD on [facility] HD, CAD s/p 2x stenting 2017, presenting with SOB and fatigue after missing HD. Last HD 5 days ago last . Says he feels dizzy after HD but has been doing okay. Over the weekend felt SOB, room-spinning dizzinessm and weakness that prevented him from going to HD, missed on session, now due today. Denies any swelling, fevers, chills, N/V, C/D, abd pain, palpitations, chest pain. Has never had SOB like this in the past, no history of pulmonary disease, has 2x cardiac stents in place after stress test showed occlusion but has never had MA or CVA. Per EMS given SL nitro for SOB which relieved symptoms, 12-lead normal. Gets HD via chest port, Renal Dr. Quiroz. Still makes urine. Has not taken PO medications today, last yesterday morning. 03/14/20 15:13 03/14/20 15:43 - Physicial Exam PE: 03/14/20 14:17 Agree with the resident's HPI and PE as documented in the electronic medical record. NAD, well appearing, EOMI, PERRL, nl conjunctiva, anicteric; neck supple. rt chest wall permacath site in place. lungs with scant crackles, decreased breath sounds left lung field, RRR, abdomen soft nontender. No rebound, no guarding. Back nontender. MIRANDA x4, no focal neuro deficits. No peripheral edema. normal color for ethnicity, WWP. +left great toe ulcer 03/14/20 15:43 03/14/20 16:07 - Medical Decision Making 03/14/20 14:18 Vital Signs Temp Pulse Resp BP Pulse Ox 91 H 16 193/94 H 98 03/14/20 14:16 03/14/20 14:16 03/14/20 14:16 03/14/20 14:16 DDx SOB: ACS, PE, PTX, CHF, COPD exac, pulmonary edema, pleurisy, pneumonia, viral syndrome. effusion. anemia, electrolyte/metabolic derangements. missed HD, likely pulm vascular congestion vitals reviewed, +hypertensive, likely from fluid overload/poor compliance, will recheck sats normal. normal HR labs and lytes with ESRD, Hyper kalemia 6, will treat medically and shift, with dextrose x2 amps/insulin, albuterol nebs 10mg hypocalcemic. will give IV calcium gluconate, also to stabilize cardiac membranes. eKG is sinus rhythm, tenting of T waves anemia is noted, but likely from ESRD cxr with some pulmonary vascular congestion, permacath in place dr will rosas nephro, will get HD and arranged today admit for fluid overload, HD. metabolic derangements 03/14/20 15:18 03/14/20 16:07 03/14/20 16:08 Heart Score/ECG Review #1 ECG reviewed & interpreted by me at: 14:35 General ECG Interpretation: Sinus Rhythm, Normal Rate, Normal Intervals 03/14/20 15:15 EKG normal sinus rhythm at 92 bpm, no interval abnormalities, narrow QRS, ST and T wave segments and morphology normal. Nonspecific T wave abnormalities, tented T waves. Discharge - Discharge Information Problems reviewed: Yes Clinical Impression/Diagnosis: ESRD (end stage renal disease), Hyperkalemia, Hypocalcemia, Anemia Condition: Stable - Admission Yes - Follow up/Referral Referrals: Waldemar Eid MD [Primary Care Provider] - - Patient Discharge Instructions - Post Discharge Activity
[2020-03-14 14:22] VITALS: BMI 33.3
[2020-03-14 14:46] LABS: ALBUMIN 3.1 g/dl (3.4-5.0); BILIRUBIN,TOTAL 0.5 mg/dL (0.2-1); BLOOD UREA NITROGEN 98.5 mg/dL (7-18); TOT PROT 7.4 g/dl (6.4-8.2)
[2020-03-14 14:54] LABS: CREATININE 10.1 mg/dL (0.55-1.3)
[2020-03-14 14:55] LABS: CALCIUM 6.9 mg/dL (8.5-10.1)
[2020-03-14] MEDS ORDERED: INSULIN REGULAR HUMAN 100 UNITS/ML *VIAL IVPUSH ONE ×2 (15:06→15:18)
[2020-03-14] MEDS ORDERED: DEXTROSE 50%-WATER - 25 GM/50 ML VIAL IVPUSH ONE (15:06)
[2020-03-14] MEDS ORDERED: CALCIUM GLUCONATE 10% - 1,000 MG/10 ML VIAL IVPB ONE (15:07)
[2020-03-14] MEDS ORDERED: CALCIUM GLUCONATE 10% - 1,000 MG/10 ML VIAL ONE (15:11)
[2020-03-14] MEDS ORDERED: DEXTROSE 50%-WATER 25 GM/50 ML DISP.SYRIN ONE (15:11)
[2020-03-14] MEDS ORDERED: INSULIN REGULAR HUMAN 100 UNITS/ML *VIAL ONE (15:12)
[2020-03-14] MEDS: ALBUTEROL SO4 2.5/IPRATROPIUM 0.5 INH SOL 3 ML VIAL.NEB. NEB SCH ×4 (15:36→16:21)
--- NOTE | 2020-03-14 17:14 | HP ---
CHIEF COMPLAINT: SOB and fatigue HISTORY OF PRESENT ILLNESS: Pt is a 59 year old male with PMHx of ESRD on HD [facility], HTN, NIDDM s/p left big toe amputation, CAD s/p stenting x2 2018, presenting with SOB and fatigue after missing his last HD session on Friday. Pt states that during his HD session on , he felt dizzy and light-headed which persisted after the session was complete. Pt states this continued into Friday when his next dialysis was due, so he did not go for his session as scheduled. Pt states that this morning he began to feel SOB, and was scheduled for his HD, so he came to the ED instead. Pt states this is not usually how he feels after a usual session of HD. Pt recevives his HD through R chest port (LUE AVF currently in maturation process) ER course was notable for: (1) EKG with no acute changes, no T wave peaks (2) K+ 6.0; given insulin + D50/calcium gluconate, albuterol (3) CXR showed congestive changes (L sided pleural fluid, questionable atelectasis, prominent mediastinum) PAST MEDICAL HISTORY: As stated above PAST SURGICAL HISTORY: L first toe digit amputation Stent x 2 (2018) Social History: Smoking: Denies Alcohol: Quit in 1990 Drugs: Quit in 1990 (marijuana and cocaine) Allergies cashew nut Allergy (Verified 02/25/20 15:18) HOME MEDICATIONS: Home Medications Medication Instructions Recorded Tamsulosin HCl [Flomax] 0.4 mg PO DAILY 05/10/19 Clopidogrel Bisulfate [Plavix] 75 mg PO DAILY 05/29/19 Pantoprazole Sodium [Protonix -] 40 mg PO DAILY #30 tablet.ec 08/22/19 Torsemide [Demadex -] 80 mg PO DAILY #30 tablet 09/15/19 Aspirin [ASA -] 81 mg PO DAILY 02/10/20 Atorvastatin Ca [Lipitor] 80 mg PO HS 02/10/20 Ergocalciferol (Vitamin D2) 50,000 unit PO WEEKLY 02/10/20 [Vitamin D2] Glipizide 10 mg PO DAILY 02/10/20 Labetalol HCl [Normodyne -] 200 mg PO BID 02/10/20 Losartan Potassium 50 mg PO DAILY 02/10/20 Nifedipine ER [Procardia Xl -] 90 mg PO DAILY 02/10/20 REVIEW OF SYSTEMS CONSTITUTIONAL: Fatigue Absent: fever, chills, diaphoresis, generalized weakness, malaise, loss of appetite, weight change HEENT: Absent: rhinorrhea, nasal congestion, throat pain, throat swelling, difficulty swallowing, mouth swelling, ear pain, eye pain, visual changes CARDIOVASCULAR: Absent: chest pain, syncope, palpitations, irregular heart rate, lightheadedness, peripheral edema RESPIRATORY: SOB Absent: cough, dyspnea with exertion, orthopnea, wheezing, stridor, hemoptysis GASTROINTESTINAL: Absent: abdominal pain, abdominal distension, nausea, vomiting, diarrhea, constipation, melena, hematochezia GENITOURINARY: Absent: dysuria, frequency, urgency, hesitancy, hematuria, flank pain, genital pain MUSCULOSKELETAL: Absent: myalgia, arthralgia, joint swelling, back pain, neck pain SKIN: Absent: rash, itching, pallor HEMATOLOGIC/IMMUNOLOGIC: Absent: easy bleeding, easy bruising, lymphadenopathy, frequent infections ENDOCRINE: Absent: unexplained weight gain, unexplained weight loss, heat intolerance, cold intolerance NEUROLOGIC: Absent: headache, focal weakness or paresthesias, dizziness, unsteady gait, seizure, mental status changes, bladder or bowel incontinence PSYCHIATRIC: Absent: anxiety, depression, suicidal or homicidal ideation, hallucinations. PHYSICAL EXAMINATION Vital Signs - 24 hr 03/14/20 03/14/20 03/14/20 14:16 14:17 15:24 Temperature 98.7 F Pulse Rate 93 H Pulse Rate [ 91 H 87 Left Apical] Respiratory 16 22 H 16 Rate Blood Pressure 193/94 H Blood Pressure 193/94 H 188/95 H [Right Arm] O2 Sat by Pulse 98 98 98 Oximetry (%) GENERAL: Awake, alert, and fully oriented, in no acute distress. HEAD: Normal with no signs of trauma. EYES: Pupils equal, round and reactive to light, extraocular movements intact, sclera anicteric, conjunctiva clear. No lid lag. EARS, NOSE, THROAT: Ears normal, nares patent, oropharynx clear without exudates. Moist mucous membranes. NECK: Normal range of motion, supple without lymphadenopathy, JVD, or masses. LUNGS: Breath sounds equal, mild crackles heard at bases. No accessory muscle use. HEART: Regular rate and rhythm, normal S1 and S2 without murmur, rub or gallop. ABDOMEN: Soft, nontender, not distended, normoactive bowel sounds, no guarding, no rebound, no masses. No hepatomegaly or splenomegaly. MUSCULOSKELETAL: Normal range of motion at all joints. No bony deformities or tenderness. No CVA tenderness. UPPER EXTREMITIES: 2+ pulses, warm, well-perfused. No cyanosis. No clubbing. No peripheral edema. R chest port for HD. LUE AVF in maturation process. LOWER EXTREMITIES: 2+ pulses, warm, well-perfused. No calf tenderness. No peripheral edema. NEUROLOGICAL: Cranial nerves II-XII intact. Normal speech. Normal gait. PSYCHIATRIC: Cooperative. Good eye contact. Appropriate mood and affect. SKIN: Warm, dry, normal turgor, no rashes or lesions noted, normal capillary refill. Laboratory Results - last 24 hr 03/14/20 03/14/20 03/14/20 13:50 13:50 14:47 WBC 7.4 RBC 2.79 L Hgb 8.4 L Hct 25.6 L D MCV 91.6 MCH 29.9 MCHC 32.7 RDW 13.9 Plt Count 253 MPV 7.1 L Absolute Neuts (auto) 6.0 Neutrophils % 81.9 D Lymphocytes % 8.3 D Monocytes % 6.6 Eosinophils % 2.3 Basophils % 0.9 Nucleated RBC % 0 Sodium 139 Potassium 6.0 H Chloride 106 Carbon Dioxide 21 Anion Gap 12 BUN 98.5 H Creatinine 10.1 H* Est GFR (CKD-EPI)AfAm 5.85 Est GFR (CKD-EPI)NonAf 5.04 POC Glucometer 155 Random Glucose 197 H Calcium 6.9 L* Total Bilirubin 0.5 AST 32 ALT 75 H Alkaline Phosphatase 102 Creatine Kinase 794 H Creatine Kinase Index 0.9 CK-MB (CK-2) 7.8 H Troponin I 0.02 Total Protein 7.4 Albumin 3.1 L ASSESSMENT/PLAN: Pt is a 59 year old male with PMHx ESRD on HD [facility], HTN, NIDDM s/p left big toe amputation, CAD s/p stenting x2 2018, presenting with SOB and fatigue after missing his last HD session on Friday, admitted for hemodialysis session. #ESRD -On HD //Fri -Receiving HD through R chest port, will receive tonight -BMP ordered for after HD, check K+ -Renal consulted; Dr. Quiroz evaluated pt, will receive HD -Received insulin + D50/calcium gluconate, albuterol in ED for K 6; recheck after HD #Hx of HTN -BP 193/94 on presentation -Held home HTN meds -Monitor BP after HD, resume if still elevated after #Hx of NIDDM -Held home glipizide -SSI + blood glucose monitoring -Ordered A1c for AM #Hx of CAD -Continue home ASA, plavix, lipitor PPx: SCD FEN -no standing fluids -repeat BMP after HD pending -diabetic controlled diet Dispo Admitted to med surg. Receiving HD tonight. Repeat BMP. Held HTN meds, resume if still elevated. Family Medical History Family History: As Documented Visit type - Emergency Visit Emergency Visit: Yes ED Registration Date: 03/14/20 Care time: The patient presented to the Emergency Department on the above date and was hospitalized for further evaluation of their emergent condition. - New Patient This patient is new to me today: No - Critical Care Critical Care patient: No ATTENDING PHYSICIAN STATEMENT I saw and evaluated the patient. I reviewed the resident's note and discussed the case with the resident. I agree with the resident's findings and plan as documented. SUBJECTIVE: OBJECTIVE: ASSESSMENT AND PLAN:
--- NOTE | 2020-03-14 17:49 | CON.NEP ---
Consult Consult Specialty:: Nephrology Referred by:: ED Reason for Consultation:: ESRD on HD with missed dialysis - History of Present Illness Chief Complaint: Weakness History of Present Illness: This is a 59 year old male with history of ESRD on HD (TTS), hypertension, insulin dependent DM, PVD s/p amputation, CAD who presents with complaints of weakness and shortness of breath. He missed his last dialysis on Friday due to weakness. Seen and examined in the ED. He denies any shortness of breath at rest. Denies any chest pain, fever, chlls, N/V/D. Has a dressing on his left lower extremity. 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[employer], 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 [place] History of Recent Travel: No Home Medications - Allergies Allergies/Adverse Reactions: Allergies Allergy/AdvReac Type Severity Reaction Status Date / Time cashew nut Allergy Verified 02/25/20 15:18 - Home Medications Home Medications: Ambulatory Orders Tamsulosin HCl [Flomax] 0.4 mg PO DAILY 05/10/19 Clopidogrel Bisulfate [Plavix] 75 mg PO DAILY 05/29/19 Pantoprazole Sodium [Protonix -] 40 mg PO DAILY #30 tablet.ec 08/22/19 Torsemide [Demadex -] 80 mg PO DAILY #30 tablet 09/15/19 Aspirin [ASA -] 81 mg PO DAILY 02/10/20 Atorvastatin Ca [Lipitor] 80 mg PO HS 02/10/20 Ergocalciferol (Vitamin D2) [Vitamin D2] 50,000 unit PO WEEKLY 02/10/20 Glipizide 10 mg PO DAILY 02/10/20 Labetalol HCl [Normodyne -] 200 mg PO BID 02/10/20 Losartan Potassium 50 mg PO DAILY 02/10/20 Nifedipine ER [Procardia XL -] 90 mg PO DAILY 02/10/20 Family Medical History Family History: Unremarkable Family Hx Cardiac Disorders: Father (hypertension ) Family Hx Diabetes: Grandmother (maternal) Review of Systems - Review of Systems Constitutional: reports: Lethargy, Weakness Eyes: reports: No Symptoms HENT: reports: No Symptoms Neck: reports: No Symptoms Cardiovascular: reports: Shortness of Breath. denies: Chest Pain, Edema, Palpitations Respiratory: reports: SOB, SOB on Exertion. denies: Cough, Hemoptysis, Orthopnea, Wheezing Gastrointestinal: reports: No Symptoms Musculoskeletal: reports: No Symptoms Neurological: reports: No Symptoms Endocrine: reports: No Symptoms Hematology/Lymphatic: reports: No Symptoms Nephrology Consult - Height Height: 6 ft 2 in - Weight Weight: 117.934 kg - BMI Body Mass Index (BMI): 33.3 - Lab Results CBC,BMP: CBC, BMP 03/14/20 13:50 03/14/20 13:50 Anion Gap: Anion Gap Anion Gap 12 MMOL/L (8-16) 03/14/20 13:50 - Imaging Chest X-ray: Report Reviewed - Physical Examination Vital Signs: Vital Signs Temperature 98.7 F 03/14/20 15:24 Pulse Rate 87 03/14/20 15:24 Respiratory Rate 16 03/14/20 15:24 Blood Pressure 188/95 H 03/14/20 15:24 O2 Sat by Pulse Oximetry (%) 98 03/14/20 15:24 Constitutional: Yes: No Distress, Calm Eyes: Yes: Conjunctiva Clear HENT: Yes: Atraumatic Neck: Yes: Supple Cardiovascular: Yes: Regular Rate and Rhythm. No: Murmur, Rub Respiratory: Yes: Regular, Diminished, SOB. No: Rales, Rhonchi Gastrointestinal: Yes: Soft. No: Tenderness Extremities: Yes: Other (dressing on left lower extremity). No: Cold, Cool, Cyanosis Edema: No Neurological: Yes: Alert, Oriented Assessment/Plan 59 year old male with history of ESRD on HD (TTS), hypertension, insulin dependent DM, PVD s/p amputation, CAD who presents with complaints of weakness and shortness of breath. 1. Shortness of breath secondary to volume overload/HF 2. Hyperkalemia in ESRD 3. High BUN due to missed dialysis 4. ESRD on HD 5. Acute on chronic anemia 6. Weakness/Fatigue 7. LE wound w/o fever or leukocytosis Will arrange for dialysis with [facility] tonight to treat hyperkalemia and volume overload. additional dialysis planned for tomorrow as well. Renal diet with salt restriction and 1.2L fluid restriction. Check stool for occult blood and iron studies. Will give RICHARD with dialysis. No acute need for transfusion. Consult vascular surgery for wound management for left leg wound no obvious sign of sepsis at this time, will defer cultures Thank you Mansoor Quiroz DO
[2020-03-14] MEDS ORDERED: SODIUM CHLORIDE 250 ML IV PRN ×2 (17:56→18:03)
[2020-03-14] MEDS ORDERED: EPOETIN ALFA-EPBX 10,000 UNIT/ML VIAL IVPUSH ONE (18:00)
--- NOTE | 2020-03-14 18:29 | PN ---
Teaching Attending Note Name of Resident: Karly Wilcox ATTENDING PHYSICIAN STATEMENT I saw and evaluated the patient. I reviewed the resident's note and discussed the case with the resident. I agree with the resident's findings and plan as documented. SUBJECTIVE: Patient seen and examined at bedside, missed HD friday now presenting w/ weakness, malaise, denies SOB/CP. For HD tonight, may DC home after. OBJECTIVE: GA comfortable, AAOx3 HEENT faint scleral icterus, neck supple, NC/AT, EOMI Chest CTAB, no crackles CVS s1, S2+, RRR Abd obese, Soft, NT, BS+ Ext 1+ pitting edema LE b/l, moves all 4 ext., no tremors Vital Signs - 24 hr 03/14/20 03/14/20 03/14/20 14:16 14:17 15:24 Temperature 98.7 F Pulse Rate 93 H Pulse Rate [ 91 H 87 Left Apical] Respiratory 16 22 H 16 Rate Blood Pressure 193/94 H Blood Pressure 193/94 H 188/95 H [Right Arm] O2 Sat by Pulse 98 98 98 Oximetry (%) Laboratory Results - last 24 hr 03/14/20 03/14/20 03/14/20 13:50 13:50 14:47 WBC 7.4 RBC 2.79 L Hgb 8.4 L Hct 25.6 L D MCV 91.6 MCH 29.9 MCHC 32.7 RDW 13.9 Plt Count 253 MPV 7.1 L Absolute Neuts (auto) 6.0 Neutrophils % 81.9 D Lymphocytes % 8.3 D Monocytes % 6.6 Eosinophils % 2.3 Basophils % 0.9 Nucleated RBC % 0 Sodium 139 Potassium 6.0 H Chloride 106 Carbon Dioxide 21 Anion Gap 12 BUN 98.5 H Creatinine 10.1 H* Est GFR (CKD-EPI)AfAm 5.85 Est GFR (CKD-EPI)NonAf 5.04 POC Glucometer 155 Random Glucose 197 H Calcium 6.9 L* Total Bilirubin 0.5 AST 32 ALT 75 H Alkaline Phosphatase 102 Creatine Kinase 794 H Creatine Kinase Index 0.9 CK-MB (CK-2) 7.8 H Troponin I 0.02 Total Protein 7.4 Albumin 3.1 L Home Medications Medication Instructions Recorded Tamsulosin HCl [Flomax] 0.4 mg PO DAILY 05/10/19 Clopidogrel Bisulfate [Plavix] 75 mg PO DAILY 05/29/19 Pantoprazole Sodium [Protonix -] 40 mg PO DAILY #30 tablet.ec 08/22/19 Torsemide [Demadex -] 80 mg PO DAILY #30 tablet 09/15/19 Aspirin [ASA -] 81 mg PO DAILY 02/10/20 Atorvastatin Ca [Lipitor] 80 mg PO HS 02/10/20 Ergocalciferol (Vitamin D2) 50,000 unit PO WEEKLY 02/10/20 [Vitamin D2] Glipizide 10 mg PO DAILY 02/10/20 Labetalol HCl [Normodyne -] 200 mg PO BID 02/10/20 Losartan Potassium 50 mg PO DAILY 02/10/20 Nifedipine ER [Procardia XL -] 90 mg PO DAILY 02/10/20 Current Medications Generic Name Dose Route Start Last Admin Trade Name Freq PRN Reason Stop Dose Admin Aspirin 81 mg 03/15/20 10:00 Asa - PO DAILY [facility] Atorvastatin Calcium 80 mg 03/14/20 22:00 Lipitor - PO HS [facility] Clopidogrel Bisulfate 75 mg 03/15/20 10:00 Plavix - PO DAILY [facility] Sodium Chloride 250 mls @ 3,000 mls/hr 03/14/20 17:56 Normal Saline - IV 03/15/20 17:55 PRN PRN Hypotension during Dialysis Sodium Chloride 250 mls @ 3,000 mls/hr 03/14/20 18:03 Normal Saline - IV 03/15/20 18:04 PRN PRN Hypotension during Dialysis Insulin Aspart 1 vial 03/14/20 22:00 Novolog Vial Sliding Scale - SQ ACHS [facility] Protocol Pantoprazole Sodium 40 mg 03/15/20 10:00 Protonix - PO DAILY [facility] Sodium Zirconium Cyclosilicate 5 gm 03/14/20 18:30 Lokelma PO 03/14/20 18:31 ONCE ONE Tamsulosin HCl 0.4 mg 03/15/20 08:30 Flomax - PO DAILY@0830 [facility] ASSESSMENT AND PLAN: 59 M ESRD on HD w/ fluid overload Hyperkalemia HTN HLD Obesity BPH T2DM CAD s/p stents Plan: HD tonight per Renal already received cocktail for hyperkalemia, EKG reviewed Qtc normal, T waves non-peaked Repeat chem after HD to ensure K normalized Fluid restriction Counseled on HD session compliance, reviewed symptoms of uremia Renal following DC home after HD if electrolytes stable
[2020-03-14] MEDS ORDERED: SODIUM ZIRCONIUM CYCLOSILICATE (LOKELMA) 5 GM PACKET PO ONE (18:30)
[2020-03-14 18:46] LABS: N-TERMINAL BNP 13630.7 pg/ml (5-125)
[2020-03-14 19:19] LABS: IRON SERUM 35 ug/dL (50-175); TOTAL IRON BINDING CAPACITY 237 ug/dL (250-450)
[2020-03-14] MEDS ORDERED: ATORVASTATIN CA 80 MG TABLET (FP) PO SCH (22:00)
[2020-03-14 22:05] LABS: CALCIUM 7.6 mg/dL (8.5-10.1); CREATININE 4.4 mg/dL (0.55-1.3); POTASSIUM 3.5 mmol/L (3.5-5.1)
[2020-03-14 22:19] LABS: BLOOD UREA NITROGEN 37.4 mg/dL (7-18)
[2020-03-14] MEDS: INSULIN SLIDING SCALE (NOVOLOG) 1 VIAL SQ SCH (22:51)
[2020-03-15 07:45] LABS: CALCIUM 7.1 mg/dL (8.5-10.1); PHOSPHOROUS 4.5 mg/dL (2.5-4.9)
[2020-03-15 07:46] LABS: BLOOD UREA NITROGEN 68.3 mg/dL (7-18)
[2020-03-15] MEDS ORDERED: ERGOCALCIFEROL (VIT D2) 50,000 UNIT (1.25 MG) CAPSULE PO SCH (08:00)
[2020-03-15 08:04] LABS: CREATININE 7.6 mg/dL (0.55-1.3)
[2020-03-15] MEDS: INSULIN SLIDING SCALE (NOVOLOG) 1 VIAL SQ SCH ×2 (08:19→13:00)
[2020-03-15] MEDS ORDERED: TAMSULOSIN HCL 0.4 MG CAP PO SCH (08:30)
[2020-03-15] MEDS ORDERED: ASPIRIN 81 MG CHEWABLE TABLETS ONE (09:26)
[2020-03-15] MEDS ORDERED: TAMSULOSIN HCL 0.4 MG CAP ONE (09:27)
[2020-03-15] MEDS ORDERED: PANTOPRAZOLE 40 MG TABLET ONE (09:27)
[2020-03-15] MEDS ORDERED: CLOPIDOGREL BISULFATE 75 MG TABLET (FP) ONE (09:27)
[2020-03-15] MEDS: LABETALOL HCL 200 MG TABLET (FP) PO SCH ×2 (09:50→10:01)
[2020-03-15] MEDS: NIFEdipine E.R 60 MG TABLET PO SCH ×2 (09:50→10:02)
[2020-03-15] MEDS ORDERED: PANTOPRAZOLE 40 MG TABLET PO SCH (10:00)
[2020-03-15] MEDS ORDERED: LISINOPRIL PO SCH (10:00)
[2020-03-15] MEDS ORDERED: TORSEMIDE 20 MG TABLET (FP) PO SCH (10:00)
[2020-03-15] MEDS ORDERED: LABETALOL HCL 200 MG TABLET (FP) PO SCH ×2 (10:00→22:00)
[2020-03-15] MEDS ORDERED: CLOPIDOGREL BISULFATE 75 MG TABLET (FP) PO SCH (10:00)
[2020-03-15] MEDS ORDERED: ASPIRIN 81 MG CHEWABLE TABLETS PO SCH (10:00)
[2020-03-15] MEDS ORDERED: NIFEdipine E.R 60 MG TABLET PO SCH (10:00)
[2020-03-15] MEDS ORDERED: PATIENT'S OWN MEDICATION (NON-FORMULARY) (Lisinopril [Prinivil -] 40 MG) PO SCH (11:18)
[2020-03-15] MEDS ORDERED: LABETALOL HCL 100 MG TABLET (FP) PO ONE (11:23)
[2020-03-15] MEDS ORDERED: LOSARTAN POTASSIUM 50 MG TABLET (FP) PO SCH (11:30)
[2020-03-15] MEDS ORDERED: LISINOPRIL 20 MG TABLET (FP) ONE (11:35)
--- NOTE | 2020-03-15 12:33 | PN ---
Teaching Attending Note Name of Resident: Karly Wilcox ATTENDING PHYSICIAN STATEMENT I saw and evaluated the patient. I reviewed the resident's note and discussed the case with the resident. I agree with the resident's findings and plan as documented. SUBJECTIVE: Feeling well, no complaints. No further lethargy/weakness. OBJECTIVE: Afebrile, hemodynamicaly Stable. Last Vital Signs Temp Pulse Resp BP Pulse Ox 98.2 F 80 20 186/88 H 90 L 03/15/20 10:00 03/15/20 10:00 03/15/20 06:16 03/15/20 10:00 03/15/20 10:00 HEENT- Atraumatic, Normocephalic. Heart - S1, s2, RRR Lungs - good air entry bilaterally Abdomen - Soft, non-tender. Bowel Sounds normal. Extremities - no edema, no calf tenderness. L great toe amputation with plantar ulcer, no superimposed infection/abscess, R plantar callus/ulcer below 1st MT - no surrounding erythema/collection. Neuro - AAO x 3. Tone/Power normal. Laboratory Results - last 24 hr 03/14/20 03/14/20 03/14/20 13:50 13:50 14:47 WBC 7.4 RBC 2.79 L Hgb 8.4 L Hct 25.6 L D MCV 91.6 MCH 29.9 MCHC 32.7 RDW 13.9 Plt Count 253 MPV 7.1 L Absolute Neuts (auto) 6.0 Neutrophils % 81.9 D Lymphocytes % 8.3 D Monocytes % 6.6 Eosinophils % 2.3 Basophils % 0.9 Nucleated RBC % 0 Sodium 139 Potassium 6.0 H Chloride 106 Carbon Dioxide 21 Anion Gap 12 BUN 98.5 H Creatinine 10.1 H* Est GFR (CKD-EPI)AfAm 5.85 Est GFR (CKD-EPI)NonAf 5.04 POC Glucometer 155 Random Glucose 197 H Hemoglobin A1c % Calcium 6.9 L* Phosphorus Magnesium Iron TIBC Iron Saturation Unsaturated IBC Total Bilirubin 0.5 AST 32 ALT 75 H Alkaline Phosphatase 102 Creatine Kinase 794 H Creatine Kinase Index 0.9 CK-MB (CK-2) 7.8 H Troponin I 0.02 B-Natriuretic Peptide 77320.7 H Total Protein 7.4 Albumin 3.1 L 03/14/20 03/14/20 03/15/20 18:00 20:38 05:51 WBC RBC Hgb Hct MCV MCH MCHC RDW Plt Count MPV Absolute Neuts (auto) Neutrophils % Lymphocytes % Monocytes % Eosinophils % Basophils % Nucleated RBC % Sodium 139 141 Potassium 3.5 5.0 Chloride 102 106 Carbon Dioxide 31 26 Anion Gap 7 L 9 BUN 37.4 H 68.3 H Creatinine 4.4 H 7.6 H* Est GFR (CKD-EPI)AfAm 15.96 8.24 Est GFR (CKD-EPI)NonAf 13.77 7.11 POC Glucometer Random Glucose 162 H 91 Hemoglobin A1c % Calcium 7.6 L 7.1 L Phosphorus 4.5 Magnesium 2.0 Iron 35 L TIBC 237 L Iron Saturation 14 L Unsaturated IBC 202 Total Bilirubin AST ALT Alkaline Phosphatase Creatine Kinase Creatine Kinase Index CK-MB (CK-2) Troponin I B-Natriuretic Peptide Total Protein Albumin 03/15/20 05:51 WBC RBC Hgb Hct MCV MCH MCHC RDW Plt Count MPV Absolute Neuts (auto) Neutrophils % Lymphocytes % Monocytes % Eosinophils % Basophils % Nucleated RBC % Sodium Potassium Chloride Carbon Dioxide Anion Gap BUN Creatinine Est GFR (CKD-EPI)AfAm Est GFR (CKD-EPI)NonAf POC Glucometer Random Glucose Hemoglobin A1c % 5.2 Calcium Phosphorus Magnesium Iron TIBC Iron Saturation Unsaturated IBC Total Bilirubin AST ALT Alkaline Phosphatase Creatine Kinase Creatine Kinase Index CK-MB (CK-2) Troponin I B-Natriuretic Peptide Total Protein Albumin Current Medications Generic Name Dose Route Start Last Admin Trade Name Freq PRN Reason Stop Dose Admin Aspirin 81 mg 03/15/20 10:00 03/15/20 09:50 Asa - PO 81 mg DAILY [facility] Administration Atorvastatin Calcium 80 mg 03/14/20 22:00 03/14/20 22:51 Lipitor - PO 80 mg HS [facility] Administration Clopidogrel Bisulfate 75 mg 03/15/20 10:00 03/15/20 09:50 Plavix - PO 75 mg DAILY [facility] Administration Ergocalciferol 50,000 unit 03/15/20 08:00 Drisdol - PO WEEKLY [facility] Sodium Chloride 250 mls @ 3,000 mls/hr 03/14/20 17:56 Normal Saline - IV 03/15/20 17:55 PRN PRN Hypotension during Dialysis Sodium Chloride 250 mls @ 3,000 mls/hr 03/14/20 18:03 Normal Saline - IV 09/09/20 18:04 PRN PRN Hypotension during Dialysis Insulin Aspart 1 vial 03/14/20 22:00 03/15/20 08:19 Novolog Vial Sliding Scale - SQ Not Given ACHS [facility] Protocol Labetalol HCl 400 mg 03/15/20 22:00 Normodyne - PO BID [facility] Losartan Potassium 50 mg 03/15/20 11:30 03/15/20 11:46 Cozaar - PO 50 mg DAILY [facility] Administration Nifedipine 60 mg 03/15/20 08:30 03/15/20 10:02 Procardia Xl - PO Not Given DAILY [facility] Non-Formulary Medication 40 mg 03/15/20 11:18 Lisinopril [Prinivil -] PO DAILY [facility] Pantoprazole Sodium 40 mg 03/15/20 10:00 03/15/20 09:50 Protonix - PO 40 mg DAILY [facility] Administration Tamsulosin HCl 0.4 mg 03/15/20 08:30 03/15/20 09:50 Flomax - PO 0.4 mg DAILY@0830 [facility] Administration Home Medications Medication Instructions Recorded Tamsulosin HCl [Flomax] 0.4 mg PO DAILY 05/10/19 Clopidogrel Bisulfate [Plavix] 75 mg PO DAILY 05/29/19 Pantoprazole Sodium [Protonix -] 40 mg PO DAILY #30 tablet.ec 08/22/19 Aspirin [ASA -] 81 mg PO DAILY 02/10/20 Atorvastatin Ca [Lipitor] 80 mg PO HS 02/10/20 Ergocalciferol (Vitamin D2) 50,000 unit PO WEEKLY 02/10/20 [Vitamin D2] Glipizide 10 mg PO BID 02/10/20 Labetalol HCl [Normodyne -] 200 mg PO BID 02/10/20 Lisinopril [Prinivil -] 1 tab PO DAILY 03/15/20 Nifedipine ER [Procardia XL -] 1 tab PO DAILY 03/15/20 ASSESSMENT AND PLAN: 59 year old male with history of ESRD on HD (TTS), HTN, HLD, DM 2, CAD (s/p FER x 2 in 2018), Chronic Diastolic CHF (Last EF 03/25 55-60%), Hx CVA (2018, no resiual deficit), PVD s/p L great toe amputation, BPH, presents with complaints of weakness and shortness of breath after missing HD session last Sat. 1. Respiratory Distress secondary to fluid Overload - resolved s/p HD 03/14/20 Seen by Nephrology - to resume regular HD schedule TTS. Renal diet with salt restriction and 1.2L fluid restriction advised by Nephrology. Continue torsemide daily Nephrology follow up as out-patient. 2. Hyporkalemia sec to missed HD - resolved. 3. Anemia - Chronic - multifactorial - sec to ESRD and JOSSY Iron Sat 14% Will supplement Iron and defer to Nephrology to refer as out-patient for further Ix. RICHARD with HD as per Nephrology 4. Bilateral LE callus/ulcers - no signs of superimposed infection Follows with Dr. Ponce [facility], has appt in 2 days For re-dressing prior to discharge, discussed with RN. 5. HTN - continue Labetolol, Lisinopril, Nifedipine 6. DM 2 - Glipizide to resume on discharge. Maintain on Novolog sliding scale as in-patient. 7. BPH - continue Tamsulosin. 8. CAD (s/p FER x 2 in 2018) - Continue Aspirin. Plavix, Statin. 9. Hx CVA (no residual deficit) - continue antiplatelets/statin. Medically stable for discharge.
[2020-03-15] MEDS ORDERED: CALCIUM GLUCONATE 10% - 1,000 MG/10 ML VIAL IVPB ONE (12:51)
[2020-03-15] MEDS ORDERED: CALCITRIOL 0.25 MCG CAPSULE (FP) PO ONE (12:51)
--- NOTE | 2020-03-15 12:57 | PN ---
Progress Note, Physician Chief Complaint: Shortness of breath History of Present Illness: Seen and examined in the ED awake and alert reports feeling better shortness of breath is improved no dizziness or weakness no JONES, blurry vision no cp, abd pain, fever, chills, N/V/D - Current Medication List Current Medications: Active Medications Aspirin (Asa -) 81 mg PO DAILY [facility] Last Admin: 03/15/20 09:50 Dose: 81 mg Documented by: Atorvastatin Calcium (Lipitor -) 80 mg PO HS [facility] Last Admin: 03/14/20 22:51 Dose: 80 mg Documented by: Calcitriol (Rocaltrol -) 0.25 mcg PO ONCE ONE Stop: 03/15/20 12:52 Calcium Gluconate (Calcium Gluconate 10% -) 1,000 mg IVPB ONCE ONE Stop: 03/15/20 12:52 Clopidogrel Bisulfate (Plavix -) 75 mg PO DAILY [facility] Last Admin: 03/15/20 09:50 Dose: 75 mg Documented by: Ergocalciferol (Drisdol -) 50,000 unit PO WEEKLY [facility] Sodium Chloride (Normal Saline -) 250 mls @ 3,000 mls/hr IV PRN PRN PRN Reason: Hypotension during Dialysis Stop: 03/15/20 17:55 Sodium Chloride (Normal Saline -) 250 mls @ 3,000 mls/hr IV PRN PRN PRN Reason: Hypotension during Dialysis Stop: 03/15/20 18:04 Insulin Aspart (Novolog Vial Sliding Scale -) 1 vial SQ ACHS [facility]; Protocol Last Admin: 03/15/20 08:19 Dose: Not Given Documented by: Labetalol HCl (Normodyne -) 400 mg PO BID [facility] Losartan Potassium (Cozaar -) 50 mg PO DAILY [facility] Last Admin: 03/15/20 11:46 Dose: 50 mg Documented by: Nifedipine (Procardia Xl -) 60 mg PO DAILY [facility] Last Admin: 03/15/20 10:02 Dose: Not Given Documented by: Pantoprazole Sodium (Protonix -) 40 mg PO DAILY [facility] Last Admin: 03/15/20 09:50 Dose: 40 mg Documented by: Tamsulosin HCl (Flomax -) 0.4 mg PO DAILY@0830 [facility] Last Admin: 03/15/20 09:50 Dose: 0.4 mg Documented by: - Objective Vital Signs: Vital Signs Temperature 98.2 F 03/15/20 10:00 Pulse Rate 80 03/15/20 10:00 Respiratory Rate 20 03/15/20 06:16 Blood Pressure 186/88 H 03/15/20 10:00 O2 Sat by Pulse Oximetry (%) 90 L 03/15/20 10:00 Constitutional: Yes: No Distress, Calm Neck: Yes: Supple Cardiovascular: Yes: Regular Rate and Rhythm Respiratory: Yes: Regular, CTA Bilaterally Gastrointestinal: Yes: Soft. No: Tenderness Extremities: No: Cyanosis Edema: No Labs: CBC, BMP 03/14/20 13:50 03/15/20 05:51 Assessment/Plan 59 year old male with history of ESRD on HD (TTS), hypertension, insulin dependent DM, PVD s/p amputation, CAD who presents with complaints of weakness and shortness of breath. 1. Shortness of breath secondary to volume overload/HF 2. Hyperkalemia in ESRD 3. High BUN due to missed dialysis 4. ESRD on HD 5. Acute on chronic anemia 6. Weakness/Fatigue 7. LE wound w/o fever or leukocytosis S/p extended dialysis treatment yesterday with 3L of volume removed. Pt is clinically improved and lungs are clear no need for additional dialysis today Corrected Ca is low, give IV calcium gluconate and calcitriol PO x 1 Renal diet with salt restriction and 1.2L fluid restriction. Vascular follow up for lower extremity wound. Blood pressure is uncontrolled. Labetalol increased to 400mg BID and Started on Losartan 50mg Daily. Would ensure BP is improved prior to discharge. Discharge planning as per primary team. Can resume dialysis as an outpatient tomorrow. Thank you Mansoor Quiroz DO
[2020-03-15 13:21] VITALS: BP 115/63; PULSE 73
[2020-03-15 13:23] VITALS: TEMP 98
--- NOTE | 2020-03-15 13:30 | EKG ---
Test Reason : Blood Pressure : / mmHG Vent. Rate : 092 BPM Atrial Rate : 092 BPM P-R Int : 192 ms QRS Dur : 082 ms QT Int : 382 ms P-R-T Axes : 021 -12 075 degrees QTc Int : 472 ms NORMAL SINUS RHYTHM POSSIBLE LEFT ATRIAL ENLARGEMENT ANTERIOR INFARCT , AGE UNDETERMINED ABNORMAL ECG Confirmed by MD REMEDIOS, JASON ([id number]) on 03/15/2020 1:30:02 PM Referred By: Confirmed By:JASON WHITTAKER MD
[2020-03-15] MEDS ORDERED: CALCIUM GLUCONATE 10% - 1,000 MG/10 ML VIAL ONE (14:30)
[2020-03-15] MEDS ORDERED: BACITRACIN 15 GM TUBE TOPICAL OINTMENT ONE (14:57)
--- NOTE | 2020-03-15 16:23 | DS ---
Physical Exam: SUBJECTIVE: Patient seen and examined OBJECTIVE: Vital Signs Period Temp Pulse Resp BP Sys/Lopez Pulse Ox Last 24 Hr 98.0 F-98.3 F 73-95 17-20 115-194/63-98 90-95 PHYSICAL EXAM GENERAL: The patient is awake, alert, and fully oriented, in no acute distress. HEAD: Normal with no signs of trauma. EYES: PERRL, extraocular movements intact, sclera anicteric, conjunctiva clear. ENT: Ears normal, nares patent, oropharynx clear without exudates, moist mucous membranes. NECK: Trachea midline, full range of motion, supple. LUNGS: Breath sounds equal, clear to auscultation bilaterally, no wheezes, no crackles, no accessory muscle use. HEART: Regular rate and rhythm, S1, S2 without murmur, rub or gallop. ABDOMEN: Soft, nontender, nondistended, normoactive bowel sounds, no guarding, no rebound, no hepatosplenomegaly, no masses. EXTREMITIES: 2+ pulses, warm, well-perfused, no edema. NEUROLOGICAL: Cranial nerves II through XII grossly intact. Normal speech, gait not observed. PSYCH: Normal mood, normal affect. SKIN: Warm, dry, normal turgor, no rashes or lesions noted. LABS Laboratory Results - last 24 hr 03/14/20 03/14/20 03/14/20 13:50 18:00 20:38 Sodium 139 139 Potassium 6.0 H 3.5 Chloride 106 102 Carbon Dioxide 21 31 Anion Gap 12 7 L BUN 98.5 H 37.4 H Creatinine 10.1 H* 4.4 H Est GFR (CKD-EPI)AfAm 5.85 15.96 Est GFR (CKD-EPI)NonAf 5.04 13.77 POC Glucometer Random Glucose 197 H 162 H Hemoglobin A1c % Calcium 6.9 L* 7.6 L Phosphorus Magnesium Iron 35 L TIBC 237 L Iron Saturation 14 L Unsaturated IBC 202 Total Bilirubin 0.5 AST 32 ALT 75 H Alkaline Phosphatase 102 Creatine Kinase 794 H Creatine Kinase Index 0.9 CK-MB (CK-2) 7.8 H Troponin I 0.02 B-Natriuretic Peptide 49022.7 H Total Protein 7.4 Albumin 3.1 L 03/15/20 03/15/20 03/15/20 05:51 05:51 15:17 Sodium 141 Potassium 5.0 Chloride 106 Carbon Dioxide 26 Anion Gap 9 BUN 68.3 H Creatinine 7.6 H* Est GFR (CKD-EPI)AfAm 8.24 Est GFR (CKD-EPI)NonAf 7.11 POC Glucometer 144 Random Glucose 91 Hemoglobin A1c % 5.2 Calcium 7.1 L Phosphorus 4.5 Magnesium 2.0 Iron TIBC Iron Saturation Unsaturated IBC Total Bilirubin AST ALT Alkaline Phosphatase Creatine Kinase Creatine Kinase Index CK-MB (CK-2) Troponin I B-Natriuretic Peptide Total Protein Albumin HOSPITAL COURSE: Date of Admission:03/14/20 Date of Discharge: 03/15/20 Minutes to complete discharge: 36 Discharge Summary Problems reviewed: Yes Reason For Visit: END STAGE RENAL FAILURE ON DIALYSIS Condition: Improved - Instructions Diet, Activity, Other Instructions: You came to the hospital because you were short of breath, fatigued and dizzy after you missed your dialysis session on Friday. You had high potassium because of your missed dialysis, and you were treated for it with medications. You had one session of dialysis in the hospital. Please continue your home medications as prescribed. Please resume your dialysis session as scheduled, on Friday, and Saturdays. Please follow up with your primary care physician, Dr. Eid, within 1 week for your general health maintenance. Please follow up with your gem cutter, Dr. Quiroz, within 1 week. Please follow up with your wound care/vascular surgeon, Dr. Ponce, within 1 week. Please follow with [employer] Dr. Rivas for further investigation of your anemia. You were started on Ferrous Sulfate for low iron levels - please slate picker from your pharmacy. Your Photo Specialist will coordinate further investigation of your anemia as an out-patient. If you have any new, worsening, or change in symptoms please return to the ED or call 911. Referrals: Waldemar Eid MD [Primary Care Provider] - José Miguel Rivas MD [Staff Physician] - 1 Week (evaluation of iron deficiency anemia) Luis Manuel Ponce DO [Staff Physician] - 1 Week (bilateral foot wounds/ulcers) Mansoor Quiroz MD [Staff Physician] - Disposition: HOME - Home Medications Comprehensive Discharge Medication List: Ambulatory Orders Tamsulosin HCl [Flomax] 0.4 mg PO DAILY 05/10/19 Clopidogrel Bisulfate [Plavix] 75 mg PO DAILY 05/29/19 Pantoprazole Sodium [Protonix -] 40 mg PO DAILY #30 tablet.ec 08/22/19 Aspirin [ASA -] 81 mg PO DAILY 02/10/20 Atorvastatin Ca [Lipitor] 80 mg PO HS 02/10/20 Ergocalciferol (Vitamin D2) [Vitamin D2] 50,000 unit PO WEEKLY 02/10/20 Glipizide 10 mg PO BID 02/10/20 Labetalol HCl [Normodyne -] 200 mg PO BID 02/10/20 Ferrous Sulfate [Feosol] 325 mg PO BID 30 Days #60 tablet 03/15/20 Lisinopril [Prinivil -] 40 mg PO DAILY 03/15/20 Nifedipine ER [Procardia XL -] 60 mg PO DAILY 03/15/20 This patient is new to me today: No Emergency Visit: Yes ED Registration Date: 03/14/20 Care time: The patient presented to the Emergency Department on the above date and was hospitalized for further evaluation of their emergent condition. Critical Care patient: No - Discharge Referral Referred to [facility] Med P.C.: No ATTENDING PHYSICIAN STATEMENT I saw and evaluated the patient. I reviewed the resident's note and discussed the case with the resident. I agree with the resident's findings and plan as documented. SUBJECTIVE: OBJECTIVE: ASSESSMENT AND PLAN:
== END 2020-03-15 15:15 | disposition home or self-care (01) | DRG 425 ==
LOC: JER 13:33 → JERBED 17:18
PROC: 5A1D70Z Performance of Urinary Filtration, Intermittent, Less than 6 Hours Per Day (ICD-10-PCS; principal; 2020-03-14)
DX: E87.79 Other fluid overload (principal); R06.02 Shortness of breath; D63.1 Anemia in chronic kidney disease; I50.32 Chronic diastolic (congestive) heart failure; E78.5 Hyperlipidemia, unspecified; N40.0 Benign prostatic hyperplasia without lower urinary tract symptoms; I25.10 Atherosclerotic heart disease of native coronary artery without angina pectoris; R06.03 Acute respiratory distress; E66.9 Obesity, unspecified; Z68.33 Body mass index [BMI] 33.0-33.9, adult; E87.5 Hyperkalemia; Z91.15 Patient's noncompliance with renal dialysis; I13.2 Hypertensive heart and chronic kidney disease with heart failure and with stage 5 chronic kidney disease, or end stage renal disease; N18.6 End stage renal disease; E11.22 Type 2 diabetes mellitus with diabetic chronic kidney disease; Z99.2 Dependence on renal dialysis; Z95.5 Presence of coronary angioplasty implant and graft; E83.51 Hypocalcemia; R53.1 Weakness
CPT/HCPCS: 36415; 71045-TC-FY; 80048; 80053; 82550; 82553; 82962; 83036; 83540; 83550; 83735; 83880; 84100; 84484; 85025; 86803; 87340; 93005; 93010; 99285-25; Q5106; U0003

== ENCOUNTER 2020-03-18 19:45 | Emergency (ER) | payer OTHER ==
[2020-03-18 19:53] VITALS: BMI 28.8
--- NOTE | 2020-03-18 19:55 | PDOC ---
History of Present Illness - General Chief Complaint: Blood Pressure Problem Stated Complaint: HIGH BLOOD PRESSURE Time Seen by Provider: 03/18/20 19:53 History Source: Patient, Old Records Exam Limitations: No Limitations - History of Present Illness Initial Comments: 03/18/20 19:54 Jaxson Prater is a 59M with PMH ESRD on HD TuThSa, HTN, NIDDM s/p left big toe amputation, CAD s/p stenting x2 2018, sent from dialysis center with dizziness and HTN after HD today. Was at HD today, felt fine prior to arrival, no recent illness. Got HD, felt dizzy after but this is normal for him, happens every time. Also having JONES, back of head, slow onset, after HD, has happened before as well. Denies any chest pain, SOB, abd pain, flank pain, urinary sx, N/V. BP checked after HD and 21 0/90, unusual for patient as he is usually hypotensive and dizzy after HD. Has not eaten all day today, feels hungry. Makes urine. Denies leg swelling. No recent illness. Received full HD today. Past History - Medical History Allergies/Adverse Reactions: Allergies Allergy/AdvReac Type Severity Reaction Status Date / Time cashew nut Allergy Verified 03/18/20 19:53 Home Medications: Ambulatory Orders Tamsulosin HCl [Flomax] 0.4 mg PO DAILY 05/10/19 Clopidogrel Bisulfate [Plavix] 75 mg PO DAILY 05/29/19 Pantoprazole Sodium [Protonix -] 40 mg PO DAILY #30 tablet.ec 08/22/19 Aspirin [ASA -] 81 mg PO DAILY 02/10/20 Atorvastatin Ca [Lipitor] 80 mg PO HS 02/10/20 Ergocalciferol (Vitamin D2) [Vitamin D2] 50,000 unit PO WEEKLY 02/10/20 Glipizide 10 mg PO BID 02/10/20 Labetalol HCl [Normodyne -] 200 mg PO BID 02/10/20 Ferrous Sulfate [Feosol] 325 mg PO BID 30 Days #60 tablet 03/15/20 Lisinopril [Prinivil -] 40 mg PO DAILY 03/15/20 Nifedipine ER [Procardia XL -] 60 mg PO DAILY 03/15/20 Anemia: No Asthma: No Cancer: No Cardiac Disorders: Yes (CAD) CVA: No COPD: No CHF: No Dementia: No Diabetes: Yes Dialysis: Yes (fistula rt upper chest) GI Disorders: No Disorders: No HTN: Yes Hypercholesterolemia: No Liver Disease: No Seizures: No Thyroid Disease: No - Surgical History Abdominal Surgery: No Appendectomy: No Cardiac Surgery: Yes (stents 2017) Cholecystectomy: No Lung Surgery: No Neurologic Surgery: No Orthopedic Surgery: Yes (Left Great Toe amputation) - Immunization History Immunization Up to Date: Yes - Psycho-Social/Smoking History Smoking History: Never smoked Have you smoked in the past 12 months: No Information on smoking cessation initiated: No - Substance Abuse Hx (Audit-C & DAST Scrn) How often the patient has a drink containing alcohol: Never Score: In Men: 4 or > Positive; In Women: 3 or > Positive: 0 Screen Result (Pos requires Nsg. Audit-10AR): Negative In the last yr the pt used illegal drug/Rx for NonMed reason: No Score: Yes response is considered Positive: 0 Screen Result (Positive result requires Nsg. DAST-10): Negative Review of Systems - Review of Systems Able to Perform ROS?: Yes Constitutional: No: Symptoms Reported HEENTM: No: Symptoms Reported Respiratory: No: Cough, Orthopnea, Shortness of Breath, SOB with Exertion, SOB at Rest Cardiac (ROS): No: Chest Pain, Lightheadedness, Palpitations, Syncope ABD/GI: No: Blood Streaked Bowels, Constipated, Diarrhea, Nausea, Poor Appetite, Poor Fluid Intake, Vomiting : No: Symptoms Reported Musculoskeletal: No: Symptoms Reported Integumentary: No: Symptoms Reported Neurological: No: Symptoms reported Endocrine: No: Symptoms Reported Hematologic/Lymphatic: No: Symptoms Reported All Other Systems: Reviewed and Negative *Physical Exam - Vital Signs Last Vital Signs Temp Pulse Resp BP Pulse Ox 98.6 F 78 20 200/97 H 98 03/18/20 19:51 03/18/20 19:51 03/18/20 19:51 03/18/20 19:51 03/18/20 19:51 - Physical Exam General Appearance: Yes: Nourished, Appropriately Dressed, Obese, Other (resting in bed in NAD, very tall). No: Apparent Distress HEENT: positive: EOMI, DANIEL, Normal Voice, Symmetrical, Pharynx Normal. negative: Scleral Icterus (R), Scleral Icterus (L), Pharyngeal Erythema, Tonsillar Exudate, Tonsillar Erythema Neck: positive: Trachea midline, Normal Thyroid, Supple. negative: Tender, Lymphadenopathy (R), Lymphadenopathy (L), Tender lateral, Tender midline Respiratory/Chest: positive: Lungs Clear, Normal Breath Sounds. negative: Chest Tender, Respiratory Distress, Accessory Muscle Use, Rapid RR, Rales, Rhonchi, Stridor, Wheezing Cardiovascular: positive: Regular Rhythm, Regular Rate Gastrointestinal/Abdominal: positive: Normal Bowel Sounds, Flat, Soft. negative: Tender, Organomegaly, Pulsatile Mass Musculoskeletal: positive: Normal Inspection. negative: CVA Tenderness, Decreased Range of Motion, Vertebral Tenderness Extremity: positive: Normal Capillary Refill, Normal Inspection, Normal Range of Motion, Pelvis Stable. negative: Tender, Pedal Edema, Swelling, Calf Tenderness Integumentary: positive: Normal Color, Dry, Warm Neurologic: positive: Fully Oriented, Alert, Normal Mood/Affect, Normal Response. negative: Sensory Deficit ED Treatment Course - LABORATORY CBC & Chemistry Diagram: 03/18/20 20:32 03/18/20 20:32 Medical Decision Making - Medical Decision Making 03/18/20 19:54 Patient presents with HTN with systolic >200 after HD as well as dizziness and JONES. JONES slow onset and 02/13, after HD, has had this problem before. Has same dizziness after every HD session. Normally SBO 130-140, has had post-HD HTN before but always in context of medication non-compliance. BGM well controlled o n glipizide alone per patient report. Has had medication change in last 3 days, has been taking older medications including labetalol 200mg PO QD, torsemide 80mg PO QD, and losartan 50mg PO QD. Discharged on labetalol, nifedipine 60mg PO QD, lisinopril 40mg PO QD. Ddx includes HTN urgency vs. emergency, but no critical findings suggestive of end organ damage at this time, JONES non-concerning based on history. Ordering CBC/CMP/CP/ECG/CXR/BNP for eval HTN and labs post-HD, giving Ofirmev for JONES, and labetalol 200mg for PM dose. If grossly normal, will d/c home with instructions to take new medications to better control HTN. 03/18/20 22:02 Labs notable for: - Hgb 9.0, WNL for patient - Cr 4.4, WNL for patient on HD - AST 45 - ALT 91 - trop 0.04 - BNP elevated but no evidence of overload, WNL for patient, chronic ECG NSR with LAD, HR 74, QTc 472, no DIVINA/D or TWI. CXR unremarkable for new pathology, improved pulmonary edema from prior 3 days ago. 03/18/20 22:46 Repeat BP 180/90, improved after labetalol, highly responsive to medication. Patient asymptomatic. JONES gone, eating a sandwich. Labs unconcerning. Stable for discharge home with PMD f/u and cards f/u for HTN management. Will make tele appt with cards before next HD given patient concern for new medication side effects. Discharge - Discharge Information Problems reviewed: Yes Clinical Impression/Diagnosis: Lightheaded, Hypertensive urgency HTN (hypertension) Qualifiers: Hypertension type: essential hypertension Qualified Code(s): I10 - Essential (primary) hypertension Headache Qualifiers: Headache type: unspecified Headache chronicity pattern: acute headache Intractability: not intractable Qualified Code(s): R51 - Headache Condition: Stable Disposition: HOME - Admission No - Follow up/Referral Referrals: Waldemar Eid MD [Primary Care Provider] - - Patient Discharge Instructions Patient Printed Discharge Instructions: DI for High Blood Pressure Additional Instructions: Today you were evaluated for high blood pressure after dialysis. Your blood pressure was high, but not so high that it has causes any problems. Your labs and X-ray are all normal. We gave you your nighttime dose of 200mg labetalol, but you need to go home and get your new medications and take them. Your new medications are nifedipine 60mg each day and lisinopril 40mg each day. Talk to your chart calculator for further recommendations. Talk to your law firm receptionist about your dizziness after dialysis. If you have high blood pressure and have vision changes, headache, difficulty breathing, become unable to walk, or have any other new or concerning symptoms, please return to the emergency room. - Post Discharge Activity
[2020-03-18] MEDS ORDERED: ACETAMINOPHEN 1000 MG/100 ML VIAL (NON FORMULARY) IVPB ONE (20:26)
[2020-03-18] MEDS ORDERED: ACETAMINOPHEN INJECTION 100 ML IVPB ONE (20:39)
[2020-03-18] MEDS ORDERED: LABETALOL HCL 200 MG TABLET (FP) PO ONE (20:56)
[2020-03-18 20:58] LABS: BASO % 1.1 % (0-2.0); EOS % 4.4 % (0-4.5); HEMATOCRIT 27.4 % (35.4-49); MCH 30.1 pg (25.7-33.7); MCHC 32.8 g/dl (32.0-35.9); MEAN CELL VOLUME 91.9 fl (80-96); MEAN PLT VOLUME 7.3 fl (7.5-11.1); MONO % 10.7 % (3.8-10.2); NEUT % 67.8 % (42.8-82.8); PLATELET COUNT 327 K/MM3 (134-434); RBC 2.98 M/mm3 (4.00-5.60); WHITE BLOOD COUNT 6.6 K/mm3 (4.0-10.0)
[2020-03-18 21:13] LABS: INR 1.11 (0.83-1.09); PROTHROMBIN TIME (PATIENT) 13.1 SEC (9.7-13.0)
[2020-03-18 21:16] LABS: ACTIVATED PTT 30.1 SECONDS (25.2-36.5)
[2020-03-18] MEDS ORDERED: LABETALOL HCL 100 MG TABLET (FP) ONE (21:26)
[2020-03-18 21:31] LABS: ALBUMIN 3.3 g/dl (3.4-5.0); BILIRUBIN,TOTAL 0.4 mg/dL (0.2-1); CALCIUM 8.3 mg/dL (8.5-10.1); CREATININE 4.4 mg/dL (0.55-1.3); POTASSIUM 3.9 mmol/L (3.5-5.1); TOT PROT 8.3 g/dl (6.4-8.2)
[2020-03-18 21:47] VITALS: PULSE 72
[2020-03-18 22:20] LABS: BLOOD UREA NITROGEN 31.5 mg/dL (7-18)
[2020-03-18 23:21] VITALS: BP 192/90; TEMP 98.8
--- NOTE | 2020-03-18 23:51 | PDOC ---
Documentation entered by Lico Bolton SCRIBE, acting as scribe for Honey Agudelo MD. Honey Agudelo MD: This documentation has been prepared by the Che lopez Aaron, SCRIBE, under my direction and personally reviewed by me in its entirety. I confirm that the documentation accurately reflects all work, treatment, procedures, and medical decision making performed by me. Attending Attestation - Resident Resident Name: AnyiJosé Miguel - ED Attending Attestation I have performed the following: I have examined & evaluated the patient, The case was reviewed & discussed with the resident, I agree w/resident's findings & plan, Exceptions are as noted - HPI HPI: The patient is a 59 year old male with a significant PMH of HTN, CVA (2018), HLD, NIDDM, left big toe amputation, ESRD, HD on TuThSa, CAD s/p 2x stent 2018, who presents to the emergency department BIBA from dialysis center for hypertension s/p dialysis today . Patient reports having a BP of 210/90 after dialysis. Patient endorses lightheadedness and a gradual onset posterior headache 5/10 severity accompanying HTN, however he notes these symptoms occasionally occur after dialysis. He currently states the hoover and lightheadedness have resolved. The patient denies any other symptoms of focal weakness/numbness, CP, SOB, abd pain, N/V/D, urinary sxs, LE edema. Allergies: Cashew Nut Past surgical history: L Toe amputation Social Hx: non-smoker PCP: Dr. Eid - Physicial Exam PE: 03/18/20 23:44 Agree with resident exam - Medical Decision Making 03/18/20 23:44 59-year-old male with multiple medical problems including end-stage renal disease on dialysis presents emergency department with elevated blood pressure after dialysis. Patient also reported lightheadedness as well as a posterior headache that he often has after dialysis and have currently both resolved prior to intervention. Will hold off on CTH for hoover as it has resolved. Of note, patient was recently admitted to the hospital and his blood pressure medications were changed given poor control while admitted. 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 Patient also has yet to take his evening dose of labetalol 200mg. Differential includes hypertensive urgency versus emergency. Blood work with no evidence of end-organ damage. EKG with no changes or ischemia. Patient was given his evening dose of labetalol with improvement in blood pressure. Discussed at length with the importance of picking up the new medications in order to have better control of his blood pressure. Patient expresses understanding and will curing pickling packer the medications tomorrow in the morning. He continues to be asymptomatic as he has been during his entire ED stay. Impression is hypertensive urgency. Patient is well-appearing and clinically stable for discharge home. I discussed the physical exam findings, ancillary test results and final diagnoses with the patient. I answered all of the patient's questions. The patient was satisfied with the care received and felt comfortable with the discharge plan and treatment plan. The patient will call their primary care physician within 24 hours to arrange follow-up and will return to the Emergency Department with any new, persistent or worsening symptoms. Discharge - Discharge Information Problems reviewed: Yes Clinical Impression/Diagnosis: HTN (hypertension), Lightheaded, Headache, Hypertensive urgency Condition: Stable Disposition: HOME - Follow up/Referral Referrals: Waldemar Eid MD [Primary Care Provider] - - Patient Discharge Instructions Patient Printed Discharge Instructions: DI for High Blood Pressure Additional Instructions: Today you were evaluated for high blood pressure after dialysis. Your blood pressure was high, but not so high that it has causes any problems. Your labs and X-ray are all normal. We gave you your nighttime dose of 200mg labetalol, but you need to go home and get your new medications and take them. Your new medications are nifedipine 60mg each day and lisinopril 40mg each day. Talk to your stretching machine operator for further recommendations. Talk to your society reporter about your dizziness after dialysis. If you have high blood pressure and have vision changes, headache, difficulty breathing, become unable to walk, or have any other new or concerning symptoms, please return to the emergency room. - Post Discharge Activity
--- NOTE | 2020-03-20 11:00 | EKG ---
Test Reason : Blood Pressure : / mmHG Vent. Rate : 074 BPM Atrial Rate : 074 BPM P-R Int : 190 ms QRS Dur : 080 ms QT Int : 426 ms P-R-T Axes : 033 011 073 degrees QTc Int : 472 ms NORMAL SINUS RHYTHM POSSIBLE LEFT ATRIAL ENLARGEMENT POSSIBLE ANTERIOR INFARCT (CITED ON OR BEFORE 18-NOV-2019) ABNORMAL ECG WHEN COMPARED WITH ECG OF 14-MAR-2020 14:35, NO SIGNIFICANT CHANGE WAS FOUND Confirmed by KITA FUNES MD ([id number]) on 03/20/2020 10:59:52 AM Referred By: Confirmed By:KITA FUNES MD
== END 2020-03-18 23:22 | disposition home or self-care (01) ==
LOC: JER 19:45
PROC: 3E033NZ Introduction of Analgesics, Hypnotics, Sedatives into Peripheral Vein, Percutaneous Approach (ICD-10-PCS; principal; 2020-03-18)
DX: R42 Dizziness and giddiness (principal); I16.0 Hypertensive urgency; R51 Headache
CPT/HCPCS: 36415; 71045-TC-FY; 80053; 82550; 82553; 83880; 84484; 85025; 85610; 85730; 93005; 93010; 99285-25; J0131

== ENCOUNTER → 2020-06-09 | Day surgery (SDC) | payer OTHER ==
[2020-06-08 09:19] VITALS: BMI 31.2
[~2020-06-09] MED LIST changes: +DEXTROSE 50%-WATER 25 GM/50 ML DISP.SYRIN ONE; +HEPARIN NA (PORCINE) 5,000 UNITS/ML 1ML VIAL ONE; +LIDOCAINE HCL 1%, 10 MG/ML (20ML VIAL) NR ONE; -LIDOCAINE HCL 1%, 10 MG/ML (20ML VIAL) PNB ONE; +MIDAZOLAM HCL 2 MG/2 ML SINGLE DOSE VIAL ONE; +PROPOFOL 20 ML ONE; +ceFAZolin SODIUM 1 GM VIAL IVPB ONE; +ceFAZolin SODIUM 1 GM VIAL ONE; +oxyCODONE HCL 5 MG TABLET PO PRN
[2020-06-09 17:04] VITALS: TEMP 97
[2020-06-09 18:29] VITALS: BP 147/84; PULSE 71
== END | disposition home or self-care (01) ==
LOC: JASU-SURG 05:17
PROVIDERS: ATTEND Surgery Vascular Surgery
PROC: B50WYZZ Plain Radiography of Dialysis Shunt/Fistula using Other Contrast (ICD-10-PCS; principal; 2020-06-09 15:00)
DX: I77.0 Arteriovenous fistula, acquired (principal); T82.858A Stenosis of other vascular prosthetic devices, implants and grafts, initial encounter; Y93.9 Activity, unspecified; Y92.9 Unspecified place or not applicable
CPT/HCPCS: 36415; 76000-TC-FY; 82962; 84132; 94760; J1644

== ENCOUNTER 2020-06-29 07:59 | Inpatient (IN) | payer OTHER ==
[2020-06-29 09:21] LABS: BASO % 0.7 % (0-2.0); HEMATOCRIT 29.6 % (35.4-49); HEMOGLOBIN 9.4 GM/dL (11.7-16.9); LYMPH % 9.9 % (8-40); MCH 28.6 pg (25.7-33.7); MCHC 31.9 g/dl (32.0-35.9); MEAN CELL VOLUME 89.8 fl (80-96); MEAN PLT VOLUME 7.5 fl (7.5-11.1); MONO % 8.2 % (3.8-10.2); NEUT % 80.2 % (42.8-82.8); PLATELET COUNT 279 K/MM3 (134-434); RBC 3.29 M/mm3 (4.00-5.60); RDW 15.8 % (11.9-15.9); WHITE BLOOD COUNT 4.9 K/mm3 (4.0-10.0)
[2020-06-29 09:38] LABS: INR 1.2 (0.83-1.09); PROTHROMBIN TIME (PATIENT) 14.4 SEC (9.7-13.0)
[2020-06-29 09:40] LABS: POTASSIUM 5.7 mmol/L (3.5-5.1)
[2020-06-29 09:42] LABS: ALBUMIN 3.2 g/dl (3.4-5.0)
[2020-06-29 09:43] LABS: BLOOD UREA NITROGEN 82.6 mg/dL (7-18); CALCIUM 7.7 mg/dL (8.5-10.1); MAGNESIUM 2.2 mg/dL (1.8-2.4)
[2020-06-29 09:47] LABS: PHOSPHOROUS 2.5 mg/dL (2.5-4.9)
[2020-06-29 09:48] LABS: BILIRUBIN,TOTAL 0.7 mg/dL (0.2-1); TOT PROT 7.8 g/dl (6.4-8.2)
[2020-06-29 09:52] LABS: N-TERMINAL BNP 28821.4 pg/ml (5-125)
[2020-06-29] MEDS ORDERED: CALCIUM GLUCONATE 10% - 1,000 MG/10 ML VIAL IVPUSH ONE (09:55)
[2020-06-29] MEDS ORDERED: CEFTRIAXONE 1 GM in DEXTROSE 5%-WATER - 100 ML IVPB ONE (09:57)
[2020-06-29] MEDS ORDERED: AZITHROMYCIN IVPB 500 MG in DEXTROSE 5%-WATER - 250 ML IVPB ONE (09:57)
[2020-06-29 10:12] LABS: CREATININE 12.4 mg/dL (0.55-1.3)
[2020-06-29] MEDS ORDERED: AZITHROMYCIN IVPB 500 MG/250 ML BAG IVPB ONE (10:13)
[2020-06-29] MEDS ORDERED: CALCIUM GLUCONATE 10% - 1,000 MG/10 ML VIAL ONE (10:13)
[2020-06-29] MEDS ORDERED: CEFTRIAXONE 1 GM/50 ML BAG ONE ×2 (10:13→12:02)
[2020-06-29] MEDS ORDERED: DEXTROSE 50%-WATER 25 GM/50 ML DISP.SYRIN ONE (10:13)
[2020-06-29] MEDS ORDERED: DEXTROSE 50%-WATER - 25 GM/50 ML VIAL IVPUSH ONE (10:15)
[2020-06-29] MEDS ORDERED: INSULIN REGULAR HUMAN 100 UNITS/ML *VIAL IVPUSH ONE (10:15)
[2020-06-29] MEDS ORDERED: FUROSEMIDE 40 MG/4 ML INJECTABLE VIAL IVPUSH ONE (10:16)
[2020-06-29] MEDS ORDERED: FUROSEMIDE 40 MG/4 ML INJECTABLE VIAL ONE (10:18)
[2020-06-29] MEDS ORDERED: SODIUM CHLORIDE 250 ML IV PRN ×2 (12:17→12:18)
[2020-06-29 13:04] LABS: POTASSIUM 5.3 mmol/L (3.5-5.1)
[2020-06-29 13:05] LABS: CALCIUM 7.6 mg/dL (8.5-10.1)
[2020-06-29 13:06] LABS: BLOOD UREA NITROGEN 87.7 mg/dL (7-18)
[2020-06-29 15:02] VITALS: BMI 22.5
[2020-06-29] MEDS ORDERED: EPOETIN ALFA 10,000 UNIT/1 ML VIAL IVPUSH ONE (16:00)
[2020-06-29] MEDS ORDERED: guaiFENesin/D-M SUGAR-FREE/ACLHOL-FREE 118 ML BOTTLE PO PRN (17:50)
[2020-06-29] MEDS ORDERED: PATIENT'S OWN MEDICATION (NON-FORMULARY) (Becaplermin [Regranex] 15 GM Gel..Gram.) TP SCH (18:45)
[2020-06-29] MEDS: LISINOPRIL 20 MG TABLET PO SCH (18:55)
[2020-06-29] MEDS: NIFEdipine E.R 60 MG TABLET PO SCH (18:56)
[2020-06-29] MEDS: ATORVASTATIN CA 80 MG TABLET (FP) PO SCH (21:21)
[2020-06-29] MEDS: INSULIN SLIDING SCALE (NOVOLOG) 1 VIAL SQ SCH (21:21)
[2020-06-29] MEDS ORDERED: PROCHLORPERAZINE MALEATE 5 MG TABLET PO ONE (23:21)
[2020-06-29] MEDS ORDERED: guaiFENesin 200 MG/10 ML 10 ML UNIT-DOSE CUPS PO ONE (23:24)
[2020-06-29] MEDS ORDERED: ACETAMINOPHEN 1000 MG/100 ML VIAL (NON FORMULARY) IVPB ONE (23:26)
[2020-06-29] MEDS ORDERED: PT OWN MED DRAWER 7, Y5N ONE (23:50)
[2020-06-30] MEDS: INSULIN SLIDING SCALE (NOVOLOG) 1 VIAL SQ SCH ×3 (06:44→16:45)
[2020-06-30 07:48] LABS: BASO % 1.3 % (0-2.0); EOS % 0.2 % (0-4.5); HEMOGLOBIN 9.3 GM/dL (11.7-16.9); LYMPH % 15.4 % (8-40); MCH 28.8 pg (25.7-33.7); MEAN CELL VOLUME 90.2 fl (80-96); MEAN PLT VOLUME 7.7 fl (7.5-11.1); MONO % 10.7 % (3.8-10.2); NEUT % 72.4 % (42.8-82.8); PLATELET COUNT 279 K/MM3 (134-434); RBC 3.22 M/mm3 (4.00-5.60); RDW 15.7 % (11.9-15.9); WHITE BLOOD COUNT 5.2 K/mm3 (4.0-10.0)
[2020-06-30 07:55] LABS: ACTIVATED PTT 32.6 SECONDS (25.2-36.5); INR 1.23 (0.83-1.09); PROTHROMBIN TIME (PATIENT) 14.8 SEC (9.7-13.0)
[2020-06-30 07:58] LABS: ALBUMIN 2.9 g/dl (3.4-5.0); BILIRUBIN,TOTAL 1.7 mg/dL (0.2-1); BLOOD UREA NITROGEN 50.7 mg/dL (7-18); CALCIUM 7.3 mg/dL (8.5-10.1); PHOSPHOROUS 3.4 mg/dL (2.5-4.9); POTASSIUM 4.5 mmol/L (3.5-5.1); TOT PROT 7.3 g/dl (6.4-8.2)
[2020-06-30 08:05] LABS: CREATININE 8.7 mg/dL (0.55-1.3)
[2020-06-30] MEDS ORDERED: DEXTROSE 5%-WATER - 50 ML IVPB ONE (08:42)
[2020-06-30] MEDS ORDERED: cefTRIAXone SODIUM 1 GM VIAL ONE (08:42)
[2020-06-30] MEDS: CEFTRIAXONE 1 GM in DEXTROSE 5%-WATER - 50 ML IVPB SCH (09:57)
[2020-06-30] MEDS: LISINOPRIL 20 MG TABLET PO SCH (09:57)
[2020-06-30] MEDS: NIFEdipine E.R 60 MG TABLET PO SCH (09:57)
[2020-06-30] MEDS: ASPIRIN 81 MG CHEWABLE TABLETS PO SCH (09:58)
[2020-06-30] MEDS: CLOPIDOGREL BISULFATE 75 MG TABLET (FP) PO SCH (09:59)
[2020-06-30] MEDS: AZITHROMYCIN IVPB 500 MG/250 ML BAG IVPB SCH (11:15)
[2020-06-30] MEDS: DEXAMETHASONE SOD PHOSPHATE 4 MG/1 ML VIAL IVPUSH SCH (17:27)
[2020-06-30] MEDS: ATORVASTATIN CA 80 MG TABLET (FP) PO SCH (22:02)
[2020-07-01] MEDS: DEXAMETHASONE SOD PHOSPHATE 4 MG/1 ML VIAL IVPUSH SCH ×2 (01:46→11:05)
[2020-07-01] MEDS: INSULIN SLIDING SCALE (NOVOLOG) 1 VIAL SQ SCH ×5 (01:47→22:21)
[2020-07-01 07:44] LABS: POTASSIUM 5.7 mmol/L (3.5-5.1)
[2020-07-01 07:51] LABS: ALBUMIN 2.8 g/dl (3.4-5.0); BLOOD UREA NITROGEN 70.3 mg/dL (7-18); MAGNESIUM 1.9 mg/dL (1.8-2.4)
[2020-07-01 07:54] LABS: BASO % 1.9 % (0-2.0); BILIRUBIN,TOTAL 1.8 mg/dL (0.2-1); HEMATOCRIT 26.6 % (35.4-49); HEMOGLOBIN 8.6 GM/dL (11.7-16.9); LYMPH % 4.2 % (8-40); MCH 28.8 pg (25.7-33.7); MCHC 32.1 g/dl (32.0-35.9); MEAN CELL VOLUME 89.7 fl (80-96); MEAN PLT VOLUME 7.7 fl (7.5-11.1); MONO % 4.1 % (3.8-10.2); NEUT % 89.8 % (42.8-82.8); PLATELET COUNT 285 K/MM3 (134-434); RBC 2.97 M/mm3 (4.00-5.60); RDW 15.3 % (11.9-15.9); WHITE BLOOD COUNT 6.2 K/mm3 (4.0-10.0)
[2020-07-01] MEDS ORDERED: SODIUM ZIRCONIUM CYCLOSILICATE (LOKELMA) 5 GM PACKET PO ONE (08:18)
[2020-07-01] MEDS: TAMSULOSIN HCL 0.4 MG CAP PO SCH (08:45)
[2020-07-01] MEDS ORDERED: cefTRIAXone SODIUM 1 GM VIAL ONE (09:34)
[2020-07-01] MEDS ORDERED: DEXTROSE 5%-WATER - 50 ML IVPB ONE (09:34)
[2020-07-01] MEDS ORDERED: APIXABAN 5 MG TABLET PO SCH (10:00)
[2020-07-01 10:04] LABS: CALCIUM 6.5 mg/dL (8.5-10.1); CREATININE 10.4 mg/dL (0.55-1.3)
[2020-07-01] MEDS: LISINOPRIL 20 MG TABLET PO SCH (11:05)
[2020-07-01] MEDS: CLOPIDOGREL BISULFATE 75 MG TABLET (FP) PO SCH (11:05)
[2020-07-01] MEDS: ASPIRIN 81 MG CHEWABLE TABLETS PO SCH (11:05)
[2020-07-01] MEDS: CEFTRIAXONE 1 GM in DEXTROSE 5%-WATER - 50 ML IVPB SCH (11:06)
[2020-07-01] MEDS: AZITHROMYCIN IVPB 500 MG/250 ML BAG IVPB SCH (11:06)
[2020-07-01] MEDS: NIFEdipine E.R 60 MG TABLET PO SCH (11:06)
[2020-07-01] MEDS: MAG HYDROX/AL HYDROX/SIMETH 30 ML UNIT-DOSE CUP PO PRN (12:10)
[2020-07-01] MEDS ORDERED: CALCIUM GLUCONATE 10% - 1,000 MG/10 ML VIAL IVPB ONE (12:35)
[2020-07-01] MEDS ORDERED: SODIUM CHLORIDE 250 ML IV PRN (12:45)
[2020-07-01] MEDS: BACITRACIN 15 GM TUBE TOPICAL OINTMENT TP SCH (13:08)
[2020-07-01] MEDS ORDERED: CALCITRIOL 0.25 MCG CAPSULE (FP) PO ONE (14:40)
[2020-07-01] MEDS: CALCIUM 500MG/VIT-D 200 UNITS COMBO TABLET (FP) PO SCH (18:04)
[2020-07-01] MEDS: ATORVASTATIN CA 80 MG TABLET (FP) PO SCH (22:20)
[2020-07-01] MEDS: APIXABAN 5 MG TABLET PO SCH (22:20)
[2020-07-02] MEDS: MAG HYDROX/AL HYDROX/SIMETH 30 ML UNIT-DOSE CUP PO PRN (06:43)
[2020-07-02] MEDS: INSULIN SLIDING SCALE (NOVOLOG) 1 VIAL SQ SCH ×3 (06:48→12:47)
[2020-07-02 07:19] LABS: POTASSIUM 4.5 mmol/L (3.5-5.1)
[2020-07-02 07:23] LABS: ALBUMIN 2.7 g/dl (3.4-5.0); CALCIUM 7.2 mg/dL (8.5-10.1)
[2020-07-02 07:24] LABS: BLOOD UREA NITROGEN 52.7 mg/dL (7-18)
[2020-07-02 07:27] LABS: BILIRUBIN,TOTAL 1.2 mg/dL (0.2-1)
[2020-07-02] MEDS ORDERED: DEXTROSE 5%-WATER - 50 ML IVPB ONE (09:17)
[2020-07-02] MEDS ORDERED: cefTRIAXone SODIUM 1 GM VIAL ONE (09:17)
[2020-07-02] MEDS: NIFEdipine E.R 60 MG TABLET PO SCH (09:38)
[2020-07-02] MEDS: APIXABAN 5 MG TABLET PO SCH ×2 (09:38→22:31)
[2020-07-02] MEDS: BACITRACIN 15 GM TUBE TOPICAL OINTMENT TP SCH (09:38)
[2020-07-02] MEDS: AZITHROMYCIN IVPB 500 MG/250 ML BAG IVPB SCH (09:38)
[2020-07-02] MEDS: CEFTRIAXONE 1 GM in DEXTROSE 5%-WATER - 50 ML IVPB SCH (09:38)
[2020-07-02] MEDS: LISINOPRIL 20 MG TABLET PO SCH (09:38)
[2020-07-02] MEDS: CLOPIDOGREL BISULFATE 75 MG TABLET (FP) PO SCH (09:39)
[2020-07-02] MEDS: DEXAMETHASONE SOD PHOSPHATE 4 MG/1 ML VIAL IVPUSH SCH (09:39)
[2020-07-02] MEDS: TAMSULOSIN HCL 0.4 MG CAP PO SCH (09:39)
[2020-07-02] MEDS: CALCIUM 500MG/VIT-D 200 UNITS COMBO TABLET (FP) PO SCH (09:39)
[2020-07-02] MEDS ORDERED: CALCITRIOL 0.25 MCG CAPSULE (FP) PO ONE (13:59)
[2020-07-02] MEDS ORDERED: CALCIUM GLUCONATE 10% - 1,000 MG/10 ML VIAL IVPB ONE (14:00)
[2020-07-02] MEDS ORDERED: glipiZIDE 10 MG TABLET (FP) PO ONE (15:28)
[2020-07-02] MEDS ORDERED: PT OWN MED DRAWER 7, Y5N ONE ×3 (15:28→18:24)
[2020-07-02] MEDS ORDERED: TAMSULOSIN HCL 0.4 MG CAP PO ONE (15:57)
[2020-07-02] MEDS ORDERED: TAMSULOSIN HCL 0.4 MG CAP PO SCH (15:58)
[2020-07-02] MEDS: ATORVASTATIN CA 80 MG TABLET (FP) PO SCH (22:31)
[2020-07-02] MEDS: LABETALOL HCL 200 MG TABLET (FP) PO SCH (22:32)
[2020-07-03] MEDS ORDERED: glipiZIDE 5 MG TABLET (FP) ONE ×2 (06:26→17:10)
[2020-07-03] MEDS: MAG HYDROX/AL HYDROX/SIMETH 30 ML UNIT-DOSE CUP PO PRN (06:27)
[2020-07-03] MEDS ORDERED: glipiZIDE 10 MG TABLET (FP) PO SCH (07:00)
[2020-07-03 07:42] LABS: POTASSIUM 4.9 mmol/L (3.5-5.1)
[2020-07-03 07:49] LABS: BLOOD UREA NITROGEN 75.8 mg/dL (7-18); CALCIUM 7.3 mg/dL (8.5-10.1)
[2020-07-03 08:14] LABS: CREATININE 9.2 mg/dL (0.55-1.3)
[2020-07-03] MEDS ORDERED: DEXTROSE 5%-WATER - 50 ML IVPB ONE (08:48)
[2020-07-03] MEDS ORDERED: cefTRIAXone SODIUM 1 GM VIAL ONE (08:48)
[2020-07-03] MEDS: DEXAMETHASONE SOD PHOSPHATE 4 MG/1 ML VIAL IVPUSH SCH (09:24)
[2020-07-03] MEDS: LISINOPRIL 20 MG TABLET PO SCH (09:25)
[2020-07-03] MEDS: APIXABAN 5 MG TABLET PO SCH ×2 (09:26→22:38)
[2020-07-03] MEDS: ACETAMINOPHEN 325 MG TABLET (FP) PO PRN (09:26)
[2020-07-03] MEDS: CEFTRIAXONE 1 GM in DEXTROSE 5%-WATER - 50 ML IVPB SCH (09:27)
[2020-07-03] MEDS: CALCIUM 500MG/VIT-D 200 UNITS COMBO TABLET (FP) PO SCH (09:27)
[2020-07-03] MEDS: NIFEdipine E.R 60 MG TABLET PO SCH (09:27)
[2020-07-03] MEDS: CLOPIDOGREL BISULFATE 75 MG TABLET (FP) PO SCH (09:27)
[2020-07-03] MEDS: LABETALOL HCL 200 MG TABLET (FP) PO SCH ×2 (09:27→22:39)
[2020-07-03] MEDS: AZITHROMYCIN IVPB 500 MG/250 ML BAG IVPB SCH (09:28)
[2020-07-03] MEDS: BACITRACIN 15 GM TUBE TOPICAL OINTMENT TP SCH (10:53)
[2020-07-03] MEDS: glipiZIDE 10 MG TABLET (FP) PO SCH (18:14)
[2020-07-03] MEDS: ATORVASTATIN CA 80 MG TABLET (FP) PO SCH (22:38)
[2020-07-04 07:06] LABS: HEMATOCRIT 23.8 % (35.4-49); HEMOGLOBIN 7.7 GM/dL (11.7-16.9); MCH 28.8 pg (25.7-33.7); MCHC 32.5 g/dl (32.0-35.9); MEAN CELL VOLUME 88.6 fl (80-96); MEAN PLT VOLUME 7.8 fl (7.5-11.1); PLATELET COUNT 303 K/MM3 (134-434); RBC 2.68 M/mm3 (4.00-5.60); RDW 15.3 % (11.9-15.9); WHITE BLOOD COUNT 8.6 K/mm3 (4.0-10.0)
[2020-07-04] MEDS ORDERED: glipiZIDE 5 MG TABLET (FP) ONE ×2 (07:15→17:13)
[2020-07-04] MEDS: glipiZIDE 10 MG TABLET (FP) PO SCH ×2 (07:20→18:05)
[2020-07-04 07:29] LABS: POTASSIUM 5.1 mmol/L (3.5-5.1)
[2020-07-04 07:32] LABS: ALBUMIN 2.6 g/dl (3.4-5.0); CALCIUM 7.8 mg/dL (8.5-10.1)
[2020-07-04 07:36] LABS: BILIRUBIN,TOTAL 0.7 mg/dL (0.2-1); TOT PROT 6.8 g/dl (6.4-8.2)
[2020-07-04 08:03] LABS: CREATININE 10.9 mg/dL (0.55-1.3)
[2020-07-04] MEDS: DEXAMETHASONE SOD PHOSPHATE 4 MG/1 ML VIAL IVPUSH SCH (09:00)
[2020-07-04] MEDS: LISINOPRIL 20 MG TABLET PO SCH (09:00)
[2020-07-04] MEDS: TAMSULOSIN HCL 0.4 MG CAP PO SCH (09:00)
[2020-07-04] MEDS: NIFEdipine E.R 60 MG TABLET PO SCH (09:00)
[2020-07-04] MEDS: CALCIUM 500MG/VIT-D 200 UNITS COMBO TABLET (FP) PO SCH (09:00)
[2020-07-04] MEDS: CLOPIDOGREL BISULFATE 75 MG TABLET (FP) PO SCH (09:00)
[2020-07-04] MEDS: LABETALOL HCL 200 MG TABLET (FP) PO SCH ×2 (09:01→21:29)
[2020-07-04] MEDS: ACETAMINOPHEN 325 MG TABLET (FP) PO PRN (09:01)
[2020-07-04] MEDS: BACITRACIN 15 GM TUBE TOPICAL OINTMENT TP SCH (09:11)
[2020-07-04] MEDS ORDERED: SODIUM CHLORIDE 250 ML IV PRN ×2 (09:32→09:33)
[2020-07-04] MEDS ORDERED: EPOETIN ALFA 20,000 UNIT/1 ML VIAL IVPUSH ONE (10:15)
[2020-07-04] MEDS: APIXABAN 5 MG TABLET PO SCH ×2 (10:15→21:28)
[2020-07-04] MEDS: ATORVASTATIN CA 80 MG TABLET (FP) PO SCH (21:29)
[2020-07-04] MEDS: INSULIN SLIDING SCALE (NOVOLOG) 1 VIAL SQ SCH (22:14)
[2020-07-05] MEDS: INSULIN SLIDING SCALE (NOVOLOG) 1 VIAL SQ SCH ×4 (06:07→22:12)
[2020-07-05] MEDS: glipiZIDE 10 MG TABLET (FP) PO SCH ×2 (06:07→16:56)
[2020-07-05 08:16] LABS: HEMATOCRIT 22.1 % (35.4-49); HEMOGLOBIN 7.3 GM/dL (11.7-16.9); MCH 29.1 pg (25.7-33.7); MEAN CELL VOLUME 88.2 fl (80-96); PLATELET COUNT 301 K/MM3 (134-434); RDW 15.4 % (11.9-15.9); WHITE BLOOD COUNT 8.3 K/mm3 (4.0-10.0)
[2020-07-05 08:31] LABS: POTASSIUM 4.9 mmol/L (3.5-5.1)
[2020-07-05 08:38] LABS: CALCIUM 7.5 mg/dL (8.5-10.1); MAGNESIUM 2.1 mg/dL (1.8-2.4)
[2020-07-05 08:41] LABS: PHOSPHOROUS 2.8 mg/dL (2.5-4.9)
[2020-07-05 08:43] LABS: BLOOD UREA NITROGEN 64.6 mg/dL (7-18)
[2020-07-05 09:11] LABS: CREATININE 7.4 mg/dL (0.55-1.3)
[2020-07-05] MEDS ORDERED: SODIUM CHLORIDE 250 ML IV PRN (09:59)
[2020-07-05] MEDS ORDERED: PT OWN MED DRAWER 7, Y5N ONE ×2 (11:22→16:53)
[2020-07-05] MEDS: APIXABAN 5 MG TABLET PO SCH (11:27)
[2020-07-05] MEDS: LABETALOL HCL 200 MG TABLET (FP) PO SCH ×2 (11:27→22:09)
[2020-07-05] MEDS: CLOPIDOGREL BISULFATE 75 MG TABLET (FP) PO SCH (11:27)
[2020-07-05] MEDS: TAMSULOSIN HCL 0.4 MG CAP PO SCH (11:27)
[2020-07-05] MEDS: CALCIUM 500MG/VIT-D 200 UNITS COMBO TABLET (FP) PO SCH (11:28)
[2020-07-05] MEDS: LISINOPRIL 20 MG TABLET PO SCH (11:29)
[2020-07-05] MEDS: NIFEdipine E.R 60 MG TABLET PO SCH (11:29)
[2020-07-05] MEDS: PANTOPRAZOLE 40 MG TABLET PO SCH (11:29)
[2020-07-05] MEDS: DEXAMETHASONE SOD PHOSPHATE 4 MG/1 ML VIAL IVPUSH SCH (11:45)
[2020-07-05] MEDS: BACITRACIN 15 GM TUBE TOPICAL OINTMENT TP SCH (11:47)
[2020-07-05] MEDS: ATORVASTATIN CA 80 MG TABLET (FP) PO SCH (22:09)
[2020-07-05] MEDS: APIXABAN 2.5 MG TABLET PO SCH (22:09)
[2020-07-06] MEDS: glipiZIDE 10 MG TABLET (FP) PO SCH ×2 (06:12→17:06)
[2020-07-06] MEDS: INSULIN SLIDING SCALE (NOVOLOG) 1 VIAL SQ SCH ×4 (06:14→22:03)
[2020-07-06 07:11] LABS: POTASSIUM 5.6 mmol/L (3.5-5.1)
[2020-07-06 07:13] LABS: ALBUMIN 2.3 g/dl (3.4-5.0); CALCIUM 7.4 mg/dL (8.5-10.1); MAGNESIUM 2.3 mg/dL (1.8-2.4)
[2020-07-06 07:14] LABS: BLOOD UREA NITROGEN 83.7 mg/dL (7-18)
[2020-07-06 07:18] LABS: BILIRUBIN,TOTAL 0.4 mg/dL (0.2-1); TOT PROT 6.4 g/dl (6.4-8.2)
[2020-07-06 07:33] LABS: CREATININE 9.2 mg/dL (0.55-1.3)
[2020-07-06] MEDS ORDERED: EPOETIN ALFA 20,000 UNIT/1 ML VIAL IVPUSH ONE (10:00)
[2020-07-06 11:24] LABS: HEMATOCRIT 21.3 % (35.4-49); MCH 28.5 pg (25.7-33.7); MEAN CELL VOLUME 89.1 fl (80-96); MEAN PLT VOLUME 8.1 fl (7.5-11.1); PLATELET COUNT 317 K/MM3 (134-434); RBC 2.39 M/mm3 (4.00-5.60); RDW 15.4 % (11.9-15.9); WHITE BLOOD COUNT 8.1 K/mm3 (4.0-10.0)
[2020-07-06 11:27] LABS: HEMOGLOBIN 6.8 GM/dL (11.7-16.9)
[2020-07-06] MEDS ORDERED: SODIUM CHLORIDE 250 ML IV PRN (11:30)
[2020-07-06 11:43] LABS: POTASSIUM 5.3 mmol/L (3.5-5.1)
[2020-07-06 11:44] LABS: CALCIUM 7.4 mg/dL (8.5-10.1)
[2020-07-06 11:45] LABS: BLOOD UREA NITROGEN 87.8 mg/dL (7-18)
[2020-07-06 11:48] LABS: PHOSPHOROUS 3.4 mg/dL (2.5-4.9)
[2020-07-06 13:25] LABS: CREATININE 9.5 mg/dL (0.55-1.3)
[2020-07-06] MEDS: TAMSULOSIN HCL 0.4 MG CAP PO SCH (14:24)
[2020-07-06] MEDS: NIFEdipine E.R 60 MG TABLET PO SCH (14:24)
[2020-07-06] MEDS: BACITRACIN 15 GM TUBE TOPICAL OINTMENT TP SCH (14:24)
[2020-07-06] MEDS: DEXAMETHASONE SOD PHOSPHATE 4 MG/1 ML VIAL IVPUSH SCH (14:24)
[2020-07-06] MEDS: CALCIUM 500MG/VIT-D 200 UNITS COMBO TABLET (FP) PO SCH (14:25)
[2020-07-06] MEDS: LABETALOL HCL 200 MG TABLET (FP) PO SCH ×2 (14:25→21:56)
[2020-07-06] MEDS: LISINOPRIL 20 MG TABLET PO SCH (14:25)
[2020-07-06] MEDS: PANTOPRAZOLE 40 MG TABLET PO SCH (14:25)
[2020-07-06] MEDS: APIXABAN 2.5 MG TABLET PO SCH (14:32)
[2020-07-06] MEDS: CLOPIDOGREL BISULFATE 75 MG TABLET (FP) PO SCH (14:33)
[2020-07-06] MEDS: ATORVASTATIN CA 80 MG TABLET (FP) PO SCH (21:56)
[2020-07-07] MEDS ORDERED: glipiZIDE 5 MG TABLET (FP) ONE ×2 (06:20→17:25)
[2020-07-07] MEDS: glipiZIDE 10 MG TABLET (FP) PO SCH ×2 (06:33→17:25)
[2020-07-07] MEDS: INSULIN SLIDING SCALE (NOVOLOG) 1 VIAL SQ SCH ×4 (06:35→22:00)
[2020-07-07 08:41] LABS: HEMATOCRIT 24.5 % (35.4-49); HEMOGLOBIN 8.1 GM/dL (11.7-16.9); MCHC 33.1 g/dl (32.0-35.9); MEAN CELL VOLUME 87.6 fl (80-96); MEAN PLT VOLUME 8.1 fl (7.5-11.1); PLATELET COUNT 362 K/MM3 (134-434); RDW 15.5 % (11.9-15.9); WHITE BLOOD COUNT 9.1 K/mm3 (4.0-10.0)
[2020-07-07 08:53] LABS: POTASSIUM 4.6 mmol/L (3.5-5.1)
[2020-07-07 09:03] LABS: CREATININE 6.5 mg/dL (0.55-1.3)
[2020-07-07 09:09] LABS: BLOOD UREA NITROGEN 55.1 mg/dL (7-18)
[2020-07-07] MEDS: PANTOPRAZOLE 40 MG TABLET PO SCH (10:30)
[2020-07-07] MEDS: CALCIUM 500MG/VIT-D 200 UNITS COMBO TABLET (FP) PO SCH (10:31)
[2020-07-07] MEDS: CLOPIDOGREL BISULFATE 75 MG TABLET (FP) PO SCH (10:31)
[2020-07-07] MEDS: LABETALOL HCL 200 MG TABLET (FP) PO SCH ×2 (10:31→21:13)
[2020-07-07] MEDS: NIFEdipine E.R 60 MG TABLET PO SCH (10:31)
[2020-07-07] MEDS: DEXAMETHASONE SOD PHOSPHATE 4 MG/1 ML VIAL IVPUSH SCH (10:31)
[2020-07-07] MEDS: LISINOPRIL 20 MG TABLET PO SCH (10:31)
[2020-07-07] MEDS: TAMSULOSIN HCL 0.4 MG CAP PO SCH (10:31)
[2020-07-07] MEDS: BACITRACIN 15 GM TUBE TOPICAL OINTMENT TP SCH (12:13)
[2020-07-07] MEDS: ATORVASTATIN CA 80 MG TABLET (FP) PO SCH (21:13)
[2020-07-08] MEDS ORDERED: glipiZIDE 5 MG TABLET (FP) ONE ×2 (06:11→08:54)
[2020-07-08] MEDS: INSULIN SLIDING SCALE (NOVOLOG) 1 VIAL SQ SCH ×4 (06:45→21:28)
[2020-07-08 07:09] LABS: HEMATOCRIT 25.4 % (35.4-49); HEMOGLOBIN 8.3 GM/dL (11.7-16.9); MCH 28.8 pg (25.7-33.7); MCHC 32.6 g/dl (32.0-35.9); MEAN CELL VOLUME 88.4 fl (80-96); PLATELET COUNT 387 K/MM3 (134-434); RBC 2.87 M/mm3 (4.00-5.60); RDW 15.5 % (11.9-15.9); WHITE BLOOD COUNT 9.5 K/mm3 (4.0-10.0)
[2020-07-08 07:32] LABS: POTASSIUM 4.7 mmol/L (3.5-5.1)
[2020-07-08 07:39] LABS: BLOOD UREA NITROGEN 76.8 mg/dL (7-18); CALCIUM 7.3 mg/dL (8.5-10.1)
[2020-07-08] MEDS: glipiZIDE 10 MG TABLET (FP) PO SCH ×3 (08:59→16:27)
[2020-07-08] MEDS: TAMSULOSIN HCL 0.4 MG CAP PO SCH (08:59)
[2020-07-08 09:11] LABS: CREATININE 8.4 mg/dL (0.55-1.3)
[2020-07-08] MEDS: NIFEdipine E.R 60 MG TABLET PO SCH (13:34)
[2020-07-08] MEDS: PANTOPRAZOLE 40 MG TABLET PO SCH (13:35)
[2020-07-08] MEDS: CALCIUM 500MG/VIT-D 200 UNITS COMBO TABLET (FP) PO SCH (13:35)
[2020-07-08] MEDS: CLOPIDOGREL BISULFATE 75 MG TABLET (FP) PO SCH (13:35)
[2020-07-08] MEDS: DEXAMETHASONE SOD PHOSPHATE 4 MG/1 ML VIAL IVPUSH SCH (13:35)
[2020-07-08] MEDS: BACITRACIN 15 GM TUBE TOPICAL OINTMENT TP SCH (13:35)
[2020-07-08] MEDS: LABETALOL HCL 200 MG TABLET (FP) PO SCH ×2 (13:35→21:24)
[2020-07-08] MEDS: LISINOPRIL 20 MG TABLET PO SCH (13:35)
[2020-07-08] MEDS: ATORVASTATIN CA 80 MG TABLET (FP) PO SCH (21:24)
[2020-07-09] MEDS ORDERED: ACETAMINOPHEN 1000 MG/100 ML VIAL (NON FORMULARY) IVPB ONE (00:49)
[2020-07-09] MEDS ORDERED: glipiZIDE 5 MG TABLET (FP) ONE ×2 (06:00→08:35)
[2020-07-09] MEDS: INSULIN SLIDING SCALE (NOVOLOG) 1 VIAL SQ SCH ×4 (06:06→22:34)
[2020-07-09] MEDS: glipiZIDE 10 MG TABLET (FP) PO SCH ×2 (06:07→16:28)
[2020-07-09] MEDS ORDERED: SODIUM CHLORIDE 250 ML IV PRN (08:30)
[2020-07-09] MEDS ORDERED: EPOETIN ALFA 20,000 UNIT/1 ML VIAL SQ ONE (09:00)
[2020-07-09] MEDS: BACITRACIN 15 GM TUBE TOPICAL OINTMENT TP SCH ×2 (09:08→11:50)
[2020-07-09 09:38] LABS: POTASSIUM 3.8 mmol/L (3.5-5.1)
[2020-07-09 09:40] LABS: BLOOD UREA NITROGEN 76.2 mg/dL (7-18); CALCIUM 7.5 mg/dL (8.5-10.1)
[2020-07-09 09:44] LABS: PHOSPHOROUS 1.6 mg/dL (2.5-4.9)
[2020-07-09 09:58] LABS: CREATININE 7.8 mg/dL (0.55-1.3)
[2020-07-09 10:18] LABS: HEMATOCRIT 24.4 % (35.4-49); HEMOGLOBIN 8.1 GM/dL (11.7-16.9); MCH 29.3 pg (25.7-33.7); MCHC 33.1 g/dl (32.0-35.9); MEAN CELL VOLUME 88.5 fl (80-96); MEAN PLT VOLUME 8.1 fl (7.5-11.1); PLATELET COUNT 337 K/MM3 (134-434); RBC 2.75 M/mm3 (4.00-5.60); RDW 15.4 % (11.9-15.9); WHITE BLOOD COUNT 9.5 K/mm3 (4.0-10.0)
[2020-07-09] MEDS: LABETALOL HCL 200 MG TABLET (FP) PO SCH ×2 (11:50→22:29)
[2020-07-09] MEDS: CALCIUM 500MG/VIT-D 200 UNITS COMBO TABLET (FP) PO SCH (11:50)
[2020-07-09] MEDS: TAMSULOSIN HCL 0.4 MG CAP PO SCH (11:50)
[2020-07-09] MEDS: NIFEdipine E.R 60 MG TABLET PO SCH (11:50)
[2020-07-09] MEDS: LISINOPRIL 20 MG TABLET PO SCH (11:50)
[2020-07-09] MEDS: PANTOPRAZOLE 40 MG TABLET PO SCH (11:50)
[2020-07-09] MEDS: ASPIRIN COATED 81 MG TABLET.EC PO SCH (11:51)
[2020-07-09] MEDS: HEPARIN NA (PORCINE) 5,000 UNITS/ML 1ML VIAL SQ SCH (22:28)
[2020-07-09] MEDS: ASCORBIC ACID 500 MG TABLET (FP) PO SCH (22:29)
[2020-07-09] MEDS: ATORVASTATIN CA 80 MG TABLET (FP) PO SCH (22:29)
[2020-07-10] MEDS ORDERED: glipiZIDE 5 MG TABLET (FP) ONE ×2 (06:06→16:44)
[2020-07-10] MEDS: HEPARIN NA (PORCINE) 5,000 UNITS/ML 1ML VIAL SQ SCH (06:37)
[2020-07-10] MEDS: glipiZIDE 10 MG TABLET (FP) PO SCH ×2 (06:38→17:04)
[2020-07-10] MEDS: INSULIN SLIDING SCALE (NOVOLOG) 1 VIAL SQ SCH ×4 (06:39→21:16)
[2020-07-10 06:40] LABS: HEMATOCRIT 25.1 % (35.4-49); HEMOGLOBIN 8.4 GM/dL (11.7-16.9); MCH 29.6 pg (25.7-33.7); MCHC 33.4 g/dl (32.0-35.9); MEAN CELL VOLUME 88.6 fl (80-96); MEAN PLT VOLUME 7.8 fl (7.5-11.1); PLATELET COUNT 331 K/MM3 (134-434); RBC 2.84 M/mm3 (4.00-5.60); RDW 15.3 % (11.9-15.9); WHITE BLOOD COUNT 9.6 K/mm3 (4.0-10.0)
[2020-07-10 07:04] LABS: BLOOD UREA NITROGEN 76.6 mg/dL (7-18); CALCIUM 7.4 mg/dL (8.5-10.1); MAGNESIUM 1.8 mg/dL (1.8-2.4)
[2020-07-10 07:07] LABS: PHOSPHOROUS 1.8 mg/dL (2.5-4.9)
[2020-07-10 07:23] LABS: CREATININE 8.1 mg/dL (0.55-1.3)
[2020-07-10] MEDS ORDERED: POTASSIUM PHOSPHATE 30 MM in SODIUM CHLORIDE 500 ML IVPB ONE (09:00)
[2020-07-10] MEDS: LABETALOL HCL 200 MG TABLET (FP) PO SCH ×2 (09:07→21:10)
[2020-07-10] MEDS: BACITRACIN 15 GM TUBE TOPICAL OINTMENT TP SCH (09:07)
[2020-07-10] MEDS: CALCIUM 500MG/VIT-D 200 UNITS COMBO TABLET (FP) PO SCH (09:07)
[2020-07-10] MEDS: TAMSULOSIN HCL 0.4 MG CAP PO SCH (09:07)
[2020-07-10] MEDS: LISINOPRIL 20 MG TABLET PO SCH (09:07)
[2020-07-10] MEDS: NIFEdipine E.R 60 MG TABLET PO SCH (09:07)
[2020-07-10] MEDS: ASPIRIN COATED 81 MG TABLET.EC PO SCH (09:07)
[2020-07-10] MEDS: CHOLECALCIFEROL (VIT D3) 1,000 UNIT (25 MCG) TABLET PO SCH (09:07)
[2020-07-10] MEDS: PANTOPRAZOLE 40 MG TABLET PO SCH (09:07)
[2020-07-10] MEDS: ASCORBIC ACID 500 MG TABLET (FP) PO SCH ×2 (09:07→21:11)
[2020-07-10] MEDS: ACETAMINOPHEN 325 MG TABLET (FP) PO PRN ×2 (11:45→21:09)
[2020-07-10] MEDS: NAPH,MB-DB/K PH,MBDB POWDER PACKET PO SCH ×2 (15:18→21:10)
[2020-07-10] MEDS: ATORVASTATIN CA 80 MG TABLET (FP) PO SCH (21:10)
[2020-07-10] MEDS: APIXABAN 2.5 MG TABLET PO SCH (21:11)
[2020-07-10] MEDS ORDERED: APIXABAN 2.5 MG TABLET PO SCH (22:00)
[2020-07-11] MEDS ORDERED: glipiZIDE 5 MG TABLET (FP) ONE ×2 (05:53→16:34)
[2020-07-11] MEDS: INSULIN SLIDING SCALE (NOVOLOG) 1 VIAL SQ SCH ×4 (06:03→21:58)
[2020-07-11] MEDS: glipiZIDE 10 MG TABLET (FP) PO SCH ×2 (06:03→16:37)
[2020-07-11] MEDS ORDERED: SODIUM CHLORIDE 250 ML IV PRN (06:38)
[2020-07-11 07:36] LABS: HEMATOCRIT 24.8 % (35.4-49); HEMOGLOBIN 8.1 GM/dL (11.7-16.9); MCHC 32.7 g/dl (32.0-35.9); MEAN CELL VOLUME 88.8 fl (80-96); MEAN PLT VOLUME 7.9 fl (7.5-11.1); PLATELET COUNT 322 K/MM3 (134-434); RDW 15.8 % (11.9-15.9); WHITE BLOOD COUNT 9.2 K/mm3 (4.0-10.0)
[2020-07-11 07:45] LABS: CALCIUM 7.3 mg/dL (8.5-10.1)
[2020-07-11 07:46] LABS: BLOOD UREA NITROGEN 89.7 mg/dL (7-18)
[2020-07-11 07:55] LABS: CREATININE 9.2 mg/dL (0.55-1.3)
[2020-07-11] MEDS: TAMSULOSIN HCL 0.4 MG CAP PO SCH ×2 (08:40→14:26)
[2020-07-11] MEDS ORDERED: EPOETIN ALFA 10,000 UNIT/1 ML VIAL IVPUSH ONE (09:30)
[2020-07-11] MEDS ORDERED: PT OWN MED DRAWER 7, Y5N ONE ×2 (10:08→14:22)
[2020-07-11] MEDS: PANTOPRAZOLE 40 MG TABLET PO SCH (14:24)
[2020-07-11] MEDS: CHOLECALCIFEROL (VIT D3) 1,000 UNIT (25 MCG) TABLET PO SCH (14:24)
[2020-07-11] MEDS: CALCIUM 500MG/VIT-D 200 UNITS COMBO TABLET (FP) PO SCH (14:24)
[2020-07-11] MEDS: LISINOPRIL 20 MG TABLET PO SCH (14:24)
[2020-07-11] MEDS: ASPIRIN COATED 81 MG TABLET.EC PO SCH (14:24)
[2020-07-11] MEDS: NIFEdipine E.R 60 MG TABLET PO SCH (14:25)
[2020-07-11] MEDS: APIXABAN 2.5 MG TABLET PO SCH ×2 (14:25→21:56)
[2020-07-11] MEDS: LABETALOL HCL 200 MG TABLET (FP) PO SCH ×2 (14:25→21:56)
[2020-07-11] MEDS: ASCORBIC ACID 500 MG TABLET (FP) PO SCH ×2 (14:26→21:56)
[2020-07-11] MEDS: BACITRACIN 15 GM TUBE TOPICAL OINTMENT TP SCH (14:29)
[2020-07-11] MEDS: ACETAMINOPHEN 325 MG TABLET (FP) PO PRN (16:41)
[2020-07-11] MEDS: ATORVASTATIN CA 80 MG TABLET (FP) PO SCH (21:56)
[2020-07-12 08:05] LABS: HEMATOCRIT 25.3 % (35.4-49); HEMOGLOBIN 8.1 GM/dL (11.7-16.9); MCH 28.8 pg (25.7-33.7); MCHC 31.8 g/dl (32.0-35.9); MEAN CELL VOLUME 90.6 fl (80-96); MEAN PLT VOLUME 7.9 fl (7.5-11.1); PLATELET COUNT 294 K/MM3 (134-434); RDW 16.3 % (11.9-15.9); WHITE BLOOD COUNT 7.5 K/mm3 (4.0-10.0)
[2020-07-12 08:16] LABS: POTASSIUM 3.8 mmol/L (3.5-5.1)
[2020-07-12 08:22] LABS: ALBUMIN 2.5 g/dl (3.4-5.0); CALCIUM 7.5 mg/dL (8.5-10.1)
[2020-07-12 08:25] LABS: CREATININE 6.6 mg/dL (0.55-1.3)
[2020-07-12 08:27] LABS: BILIRUBIN,TOTAL 0.7 mg/dL (0.2-1); TOT PROT 6.7 g/dl (6.4-8.2)
[2020-07-12] MEDS ORDERED: glipiZIDE 5 MG TABLET (FP) ONE ×2 (08:32→14:41)
[2020-07-12 10:01] LABS: ERYTHROCYTE SEDIMENTATION RATE 44 mm/hr (0-20)
[2020-07-12] MEDS: ASCORBIC ACID 500 MG TABLET (FP) PO SCH ×2 (10:24→22:13)
[2020-07-12] MEDS: TAMSULOSIN HCL 0.4 MG CAP PO SCH (10:24)
[2020-07-12] MEDS: ASPIRIN COATED 81 MG TABLET.EC PO SCH (10:24)
[2020-07-12] MEDS: glipiZIDE 10 MG TABLET (FP) PO SCH ×2 (10:24→17:18)
[2020-07-12] MEDS: NIFEdipine E.R 60 MG TABLET PO SCH (10:24)
[2020-07-12] MEDS: LABETALOL HCL 200 MG TABLET (FP) PO SCH ×2 (10:24→22:13)
[2020-07-12] MEDS: APIXABAN 2.5 MG TABLET PO SCH ×2 (10:24→22:13)
[2020-07-12] MEDS: LISINOPRIL 20 MG TABLET PO SCH (10:25)
[2020-07-12] MEDS: BACITRACIN 15 GM TUBE TOPICAL OINTMENT TP SCH (10:25)
[2020-07-12] MEDS: CHOLECALCIFEROL (VIT D3) 1,000 UNIT (25 MCG) TABLET PO SCH (10:25)
[2020-07-12] MEDS: PANTOPRAZOLE 40 MG TABLET PO SCH (10:26)
[2020-07-12] MEDS: CALCIUM 500MG/VIT-D 200 UNITS COMBO TABLET (FP) PO SCH (10:26)
[2020-07-12] MEDS: FAMOTIDINE 10 MG TABLET PO SCH (10:26)
[2020-07-12] MEDS: INSULIN SLIDING SCALE (NOVOLOG) 1 VIAL SQ SCH ×4 (10:36→22:25)
[2020-07-12] MEDS: ATORVASTATIN CA 80 MG TABLET (FP) PO SCH (22:13)
[2020-07-13] MEDS ORDERED: glipiZIDE 5 MG TABLET (FP) ONE ×2 (06:20→17:46)
[2020-07-13] MEDS: glipiZIDE 10 MG TABLET (FP) PO SCH ×2 (06:38→17:48)
[2020-07-13] MEDS: INSULIN SLIDING SCALE (NOVOLOG) 1 VIAL SQ SCH ×4 (06:38→22:48)
[2020-07-13 08:09] LABS: HEMATOCRIT 23.9 % (35.4-49); HEMOGLOBIN 7.6 GM/dL (11.7-16.9); MCH 29.1 pg (25.7-33.7); MEAN CELL VOLUME 90.9 fl (80-96); MEAN PLT VOLUME 7.8 fl (7.5-11.1); PLATELET COUNT 281 K/MM3 (134-434); RBC 2.63 M/mm3 (4.00-5.60); RDW 16.2 % (11.9-15.9); WHITE BLOOD COUNT 6.9 K/mm3 (4.0-10.0)
[2020-07-13 08:14] LABS: CALCIUM 7.3 mg/dL (8.5-10.1)
[2020-07-13 08:15] LABS: BLOOD UREA NITROGEN 63.9 mg/dL (7-18)
[2020-07-13 08:32] LABS: CREATININE 8.4 mg/dL (0.55-1.3)
[2020-07-13] MEDS: ASCORBIC ACID 500 MG TABLET (FP) PO SCH ×2 (11:04→22:48)
[2020-07-13] MEDS: CHOLECALCIFEROL (VIT D3) 1,000 UNIT (25 MCG) TABLET PO SCH (11:04)
[2020-07-13] MEDS: LISINOPRIL 20 MG TABLET PO SCH (11:04)
[2020-07-13] MEDS: LABETALOL HCL 200 MG TABLET (FP) PO SCH ×2 (11:05→22:48)
[2020-07-13] MEDS: APIXABAN 2.5 MG TABLET PO SCH ×2 (11:05→22:48)
[2020-07-13] MEDS: PANTOPRAZOLE 40 MG TABLET PO SCH (11:05)
[2020-07-13] MEDS: CALCIUM 500MG/VIT-D 200 UNITS COMBO TABLET (FP) PO SCH (11:05)
[2020-07-13] MEDS: NIFEdipine E.R 60 MG TABLET PO SCH (11:05)
[2020-07-13] MEDS: ASPIRIN COATED 81 MG TABLET.EC PO SCH (11:05)
[2020-07-13] MEDS: TAMSULOSIN HCL 0.4 MG CAP PO SCH (11:05)
[2020-07-13] MEDS: BACITRACIN 15 GM TUBE TOPICAL OINTMENT TP SCH (11:06)
[2020-07-13] MEDS: FAMOTIDINE 10 MG TABLET PO SCH (11:06)
[2020-07-13] MEDS ORDERED: SODIUM CHLORIDE 250 ML IV PRN (13:23)
[2020-07-13] MEDS ORDERED: PT OWN MED DRAWER 7, Y5N ONE (13:49)
[2020-07-13] MEDS ORDERED: EPOETIN ALFA-EPBX 20,000 UNIT/ML VIAL IVPUSH ONE (14:00)
[2020-07-13] MEDS: COLLAGENASE CLOSTRIDIUM HIST. 30 GRAMS TUBE TP SCH (14:08)
[2020-07-13] MEDS: ACETAMINOPHEN 325 MG TABLET (FP) PO PRN (15:44)
[2020-07-13] MEDS: ATORVASTATIN CA 80 MG TABLET (FP) PO SCH (22:48)
[2020-07-14] MEDS: ACETAMINOPHEN 325 MG TABLET (FP) PO PRN ×2 (01:27→21:29)
[2020-07-14] MEDS ORDERED: glipiZIDE 5 MG TABLET (FP) ONE ×2 (06:04→16:51)
[2020-07-14] MEDS: INSULIN SLIDING SCALE (NOVOLOG) 1 VIAL SQ SCH ×4 (06:05→21:24)
[2020-07-14] MEDS: glipiZIDE 10 MG TABLET (FP) PO SCH ×2 (06:06→17:26)
[2020-07-14 07:36] LABS: HEMATOCRIT 24.9 % (35.4-49); MCH 29.6 pg (25.7-33.7); MCHC 32.1 g/dl (32.0-35.9); MEAN CELL VOLUME 92.3 fl (80-96); MEAN PLT VOLUME 7.8 fl (7.5-11.1); PLATELET COUNT 265 K/MM3 (134-434); RDW 17.2 % (11.9-15.9); WHITE BLOOD COUNT 6.8 K/mm3 (4.0-10.0)
[2020-07-14 07:55] LABS: POTASSIUM 3.6 mmol/L (3.5-5.1)
[2020-07-14 08:02] LABS: BLOOD UREA NITROGEN 41.6 mg/dL (7-18); CALCIUM 7.5 mg/dL (8.5-10.1)
[2020-07-14 08:03] LABS: ALBUMIN 2.5 g/dl (3.4-5.0)
[2020-07-14 08:06] LABS: BILIRUBIN,TOTAL 0.7 mg/dL (0.2-1); CREATININE 6.3 mg/dL (0.55-1.3)
[2020-07-14 08:07] LABS: TOT PROT 6.7 g/dl (6.4-8.2)
[2020-07-14] MEDS: BACITRACIN 15 GM TUBE TOPICAL OINTMENT TP SCH (09:25)
[2020-07-14] MEDS: ASPIRIN COATED 81 MG TABLET.EC PO SCH (09:25)
[2020-07-14] MEDS: CHOLECALCIFEROL (VIT D3) 1,000 UNIT (25 MCG) TABLET PO SCH (09:25)
[2020-07-14] MEDS: ASCORBIC ACID 500 MG TABLET (FP) PO SCH ×2 (09:25→21:22)
[2020-07-14] MEDS: CALCIUM 500MG/VIT-D 200 UNITS COMBO TABLET (FP) PO SCH (09:25)
[2020-07-14] MEDS: LISINOPRIL 20 MG TABLET PO SCH (09:26)
[2020-07-14] MEDS: PANTOPRAZOLE 40 MG TABLET PO SCH (09:26)
[2020-07-14] MEDS: LABETALOL HCL 200 MG TABLET (FP) PO SCH ×2 (09:26→21:22)
[2020-07-14] MEDS: TAMSULOSIN HCL 0.4 MG CAP PO SCH (09:26)
[2020-07-14] MEDS: FAMOTIDINE 10 MG TABLET PO SCH (09:27)
[2020-07-14] MEDS: NIFEdipine E.R 60 MG TABLET PO SCH (09:27)
[2020-07-14] MEDS: APIXABAN 2.5 MG TABLET PO SCH (09:27)
[2020-07-14] MEDS: COLLAGENASE CLOSTRIDIUM HIST. 30 GRAMS TUBE TP SCH (09:27)
[2020-07-14] MEDS ORDERED: SODIUM CHLORIDE 250 ML IV PRN (13:26)
[2020-07-14] MEDS: HEPARIN NA (PORCINE) 5,000 UNITS/ML 1ML VIAL SQ SCH (21:22)
[2020-07-14] MEDS: ATORVASTATIN CA 80 MG TABLET (FP) PO SCH (21:22)
[2020-07-15] MEDS ORDERED: glipiZIDE 5 MG TABLET (FP) ONE ×2 (05:57→17:21)
[2020-07-15] MEDS: INSULIN SLIDING SCALE (NOVOLOG) 1 VIAL SQ SCH ×4 (06:47→21:56)
[2020-07-15] MEDS: glipiZIDE 10 MG TABLET (FP) PO SCH ×2 (06:48→17:27)
[2020-07-15] MEDS: HEPARIN NA (PORCINE) 5,000 UNITS/ML 1ML VIAL SQ SCH ×3 (06:48→21:55)
[2020-07-15] MEDS: TAMSULOSIN HCL 0.4 MG CAP PO SCH (09:00)
[2020-07-15] MEDS: COLLAGENASE CLOSTRIDIUM HIST. 30 GRAMS TUBE TP SCH (09:01)
[2020-07-15] MEDS: CALCIUM 500MG/VIT-D 200 UNITS COMBO TABLET (FP) PO SCH (09:01)
[2020-07-15] MEDS: PANTOPRAZOLE 40 MG TABLET PO SCH (09:01)
[2020-07-15] MEDS: LISINOPRIL 20 MG TABLET PO SCH (09:01)
[2020-07-15] MEDS: NIFEdipine E.R 60 MG TABLET PO SCH (09:01)
[2020-07-15] MEDS: LABETALOL HCL 200 MG TABLET (FP) PO SCH ×2 (09:01→21:56)
[2020-07-15] MEDS: CHOLECALCIFEROL (VIT D3) 1,000 UNIT (25 MCG) TABLET PO SCH (09:01)
[2020-07-15] MEDS: ASCORBIC ACID 500 MG TABLET (FP) PO SCH ×2 (09:01→21:56)
[2020-07-15] MEDS: BACITRACIN 15 GM TUBE TOPICAL OINTMENT TP SCH (09:02)
[2020-07-15] MEDS: ASPIRIN COATED 81 MG TABLET.EC PO SCH (09:02)
[2020-07-15] MEDS: FAMOTIDINE 10 MG TABLET PO SCH (09:02)
[2020-07-15] MEDS ORDERED: EPOETIN ALFA-EPBX 20,000 UNIT/ML VIAL IVPUSH ONE (11:30)
[2020-07-15 12:22] LABS: HEMATOCRIT 22.9 % (35.4-49); HEMOGLOBIN 7.2 GM/dL (11.7-16.9); MCH 29.1 pg (25.7-33.7); MCHC 31.4 g/dl (32.0-35.9); MEAN CELL VOLUME 92.7 fl (80-96); MEAN PLT VOLUME 7.6 fl (7.5-11.1); PLATELET COUNT 248 K/MM3 (134-434); RBC 2.47 M/mm3 (4.00-5.60); WHITE BLOOD COUNT 7.3 K/mm3 (4.0-10.0)
[2020-07-15 12:39] LABS: POTASSIUM 3.9 mmol/L (3.5-5.1)
[2020-07-15 12:40] LABS: BLOOD UREA NITROGEN 56.7 mg/dL (7-18); CALCIUM 7.3 mg/dL (8.5-10.1)
[2020-07-15 12:44] LABS: PHOSPHOROUS 3.2 mg/dL (2.5-4.9)
[2020-07-15 13:11] LABS: CREATININE 8.5 mg/dL (0.55-1.3)
[2020-07-15] MEDS: ATORVASTATIN CA 80 MG TABLET (FP) PO SCH (21:55)
[2020-07-16 06:18] LABS: HEMATOCRIT 24.9 % (35.4-49); HEMOGLOBIN 7.7 GM/dL (11.7-16.9); MCH 28.8 pg (25.7-33.7); MCHC 31.1 g/dl (32.0-35.9); MEAN CELL VOLUME 92.8 fl (80-96); MEAN PLT VOLUME 7.6 fl (7.5-11.1); PLATELET COUNT 229 K/MM3 (134-434); RBC 2.69 M/mm3 (4.00-5.60); RDW 18.8 % (11.9-15.9); WHITE BLOOD COUNT 7.3 K/mm3 (4.0-10.0)
[2020-07-16 06:37] LABS: POTASSIUM 3.8 mmol/L (3.5-5.1)
[2020-07-16 06:38] LABS: CALCIUM 7.8 mg/dL (8.5-10.1)
[2020-07-16 06:39] LABS: BLOOD UREA NITROGEN 35.5 mg/dL (7-18); MAGNESIUM 1.8 mg/dL (1.8-2.4)
[2020-07-16 06:42] LABS: CREATININE 6.4 mg/dL (0.55-1.3); PHOSPHOROUS 2.5 mg/dL (2.5-4.9)
[2020-07-16] MEDS ORDERED: glipiZIDE 5 MG TABLET (FP) ONE (07:38)
[2020-07-16] MEDS: INSULIN SLIDING SCALE (NOVOLOG) 1 VIAL SQ SCH ×4 (07:39→22:11)
[2020-07-16] MEDS: HEPARIN NA (PORCINE) 5,000 UNITS/ML 1ML VIAL SQ SCH ×3 (07:39→22:01)
[2020-07-16] MEDS: glipiZIDE 10 MG TABLET (FP) PO SCH ×2 (07:39→17:41)
[2020-07-16] MEDS: CHOLECALCIFEROL (VIT D3) 1,000 UNIT (25 MCG) TABLET PO SCH (09:39)
[2020-07-16] MEDS: PANTOPRAZOLE 40 MG TABLET PO SCH (09:39)
[2020-07-16] MEDS: NIFEdipine E.R 60 MG TABLET PO SCH (09:39)
[2020-07-16] MEDS: TAMSULOSIN HCL 0.4 MG CAP PO SCH (09:39)
[2020-07-16] MEDS: ASPIRIN COATED 81 MG TABLET.EC PO SCH (09:39)
[2020-07-16] MEDS: LABETALOL HCL 200 MG TABLET (FP) PO SCH ×2 (09:39→22:01)
[2020-07-16] MEDS: LISINOPRIL 20 MG TABLET PO SCH (09:39)
[2020-07-16] MEDS: CALCIUM 500MG/VIT-D 200 UNITS COMBO TABLET (FP) PO SCH (09:39)
[2020-07-16] MEDS: ASCORBIC ACID 500 MG TABLET (FP) PO SCH ×2 (09:39→22:01)
[2020-07-16] MEDS: COLLAGENASE CLOSTRIDIUM HIST. 30 GRAMS TUBE TP SCH (09:40)
[2020-07-16] MEDS: BACITRACIN 15 GM TUBE TOPICAL OINTMENT TP SCH (09:40)
[2020-07-16] MEDS: FAMOTIDINE 10 MG TABLET PO SCH (09:43)
[2020-07-16] MEDS ORDERED: PT OWN MED DRAWER 7, Y5N ONE (17:09)
[2020-07-16] MEDS: ACETAMINOPHEN 325 MG TABLET (FP) PO PRN (22:01)
[2020-07-16] MEDS: ATORVASTATIN CA 80 MG TABLET (FP) PO SCH (22:01)
[2020-07-17] MEDS ORDERED: glipiZIDE 5 MG TABLET (FP) ONE ×2 (05:59→16:55)
[2020-07-17] MEDS: HEPARIN NA (PORCINE) 5,000 UNITS/ML 1ML VIAL SQ SCH ×3 (06:34→22:48)
[2020-07-17] MEDS: glipiZIDE 10 MG TABLET (FP) PO SCH ×2 (06:35→16:59)
[2020-07-17] MEDS: INSULIN SLIDING SCALE (NOVOLOG) 1 VIAL SQ SCH ×4 (06:57→23:27)
[2020-07-17] MEDS: TAMSULOSIN HCL 0.4 MG CAP PO SCH (08:38)
[2020-07-17] MEDS: FAMOTIDINE 10 MG TABLET PO SCH (10:38)
[2020-07-17] MEDS: BACITRACIN 15 GM TUBE TOPICAL OINTMENT TP SCH (11:38)
[2020-07-17] MEDS: ASPIRIN COATED 81 MG TABLET.EC PO SCH (11:39)
[2020-07-17] MEDS: CALCIUM 500MG/VIT-D 200 UNITS COMBO TABLET (FP) PO SCH (11:39)
[2020-07-17] MEDS: LABETALOL HCL 200 MG TABLET (FP) PO SCH ×2 (11:39→22:47)
[2020-07-17] MEDS: LISINOPRIL 20 MG TABLET PO SCH (11:39)
[2020-07-17] MEDS: PANTOPRAZOLE 40 MG TABLET PO SCH (11:40)
[2020-07-17] MEDS: NIFEdipine E.R 60 MG TABLET PO SCH (11:40)
[2020-07-17] MEDS: COLLAGENASE CLOSTRIDIUM HIST. 30 GRAMS TUBE TP SCH (11:40)
[2020-07-17] MEDS: CHOLECALCIFEROL (VIT D3) 1,000 UNIT (25 MCG) TABLET PO SCH (11:41)
[2020-07-17] MEDS: ASCORBIC ACID 500 MG TABLET (FP) PO SCH ×2 (11:41→22:47)
[2020-07-17] MEDS: ATORVASTATIN CA 80 MG TABLET (FP) PO SCH (22:48)
[2020-07-18] MEDS ORDERED: SODIUM CHLORIDE 250 ML IV PRN (06:40)
[2020-07-18] MEDS: HEPARIN NA (PORCINE) 5,000 UNITS/ML 1ML VIAL SQ SCH ×3 (06:42→21:41)
[2020-07-18] MEDS ORDERED: glipiZIDE 5 MG TABLET (FP) ONE (07:02)
[2020-07-18] MEDS: INSULIN SLIDING SCALE (NOVOLOG) 1 VIAL SQ SCH ×4 (07:08→21:41)
[2020-07-18] MEDS: glipiZIDE 10 MG TABLET (FP) PO SCH ×2 (07:08→17:13)
[2020-07-18] MEDS ORDERED: EPOETIN ALFA-EPBX 20,000 UNIT/ML VIAL IVPUSH ONE (08:00)
[2020-07-18 08:04] LABS: HEMOGLOBIN 7.6 GM/dL (11.7-16.9); MCH 29.9 pg (25.7-33.7); MCHC 31.8 g/dl (32.0-35.9); MEAN PLT VOLUME 7.8 fl (7.5-11.1); PLATELET COUNT 201 K/MM3 (134-434); RBC 2.56 M/mm3 (4.00-5.60); RDW 19.5 % (11.9-15.9); WHITE BLOOD COUNT 5.9 K/mm3 (4.0-10.0)
[2020-07-18 08:22] LABS: POTASSIUM 4.2 mmol/L (3.5-5.1)
[2020-07-18 08:26] LABS: MAGNESIUM 1.9 mg/dL (1.8-2.4)
[2020-07-18 08:29] LABS: CALCIUM 8.3 mg/dL (8.5-10.1)
[2020-07-18 08:31] LABS: BLOOD UREA NITROGEN 62.8 mg/dL (7-18)
[2020-07-18 08:38] LABS: CREATININE 9.9 mg/dL (0.55-1.3)
[2020-07-18] MEDS: ASPIRIN COATED 81 MG TABLET.EC PO SCH (12:08)
[2020-07-18] MEDS: TAMSULOSIN HCL 0.4 MG CAP PO SCH (12:08)
[2020-07-18] MEDS: LISINOPRIL 20 MG TABLET PO SCH (12:09)
[2020-07-18] MEDS: ASCORBIC ACID 500 MG TABLET (FP) PO SCH ×2 (12:09→21:41)
[2020-07-18] MEDS: CALCIUM 500MG/VIT-D 200 UNITS COMBO TABLET (FP) PO SCH (12:10)
[2020-07-18] MEDS: LABETALOL HCL 200 MG TABLET (FP) PO SCH ×2 (12:11→21:41)
[2020-07-18] MEDS: CHOLECALCIFEROL (VIT D3) 1,000 UNIT (25 MCG) TABLET PO SCH (12:11)
[2020-07-18] MEDS: FAMOTIDINE 10 MG TABLET PO SCH (12:12)
[2020-07-18] MEDS: PANTOPRAZOLE 40 MG TABLET PO SCH (12:12)
[2020-07-18] MEDS: NIFEdipine E.R 60 MG TABLET PO SCH (12:12)
[2020-07-18] MEDS: BACITRACIN 15 GM TUBE TOPICAL OINTMENT TP SCH (12:58)
[2020-07-18] MEDS: COLLAGENASE CLOSTRIDIUM HIST. 30 GRAMS TUBE TP SCH (12:58)
[2020-07-18] MEDS ORDERED: BISACODYL 5 MG TABLET.DR (FP) PO ONE (16:00)
[2020-07-18] MEDS ORDERED: PEG 3350/NA SULF BICARB CL/KCL 4000 ML SOLN.RECON PO ONE (17:00)
[2020-07-18] MEDS: ATORVASTATIN CA 80 MG TABLET (FP) PO SCH (21:40)
[2020-07-19] MEDS: glipiZIDE 10 MG TABLET (FP) PO SCH ×2 (06:22→18:23)
[2020-07-19] MEDS: INSULIN SLIDING SCALE (NOVOLOG) 1 VIAL SQ SCH ×4 (06:22→21:53)
[2020-07-19] MEDS ORDERED: ACETAMINOPHEN 325 MG TABLET (FP) PO PRN (09:18)
[2020-07-19] MEDS: LISINOPRIL 20 MG TABLET PO SCH (12:47)
[2020-07-19] MEDS: FAMOTIDINE 10 MG TABLET PO SCH (12:48)
[2020-07-19] MEDS: PANTOPRAZOLE 40 MG TABLET PO SCH (12:48)
[2020-07-19] MEDS: CHOLECALCIFEROL (VIT D3) 1,000 UNIT (25 MCG) TABLET PO SCH (12:48)
[2020-07-19] MEDS: ASCORBIC ACID 500 MG TABLET (FP) PO SCH ×2 (12:49→21:54)
[2020-07-19] MEDS: NIFEdipine E.R 60 MG TABLET PO SCH (12:49)
[2020-07-19] MEDS: ASPIRIN COATED 81 MG TABLET.EC PO SCH (12:50)
[2020-07-19] MEDS: LABETALOL HCL 200 MG TABLET (FP) PO SCH ×2 (12:50→21:53)
[2020-07-19] MEDS: CALCIUM 500MG/VIT-D 200 UNITS COMBO TABLET (FP) PO SCH (12:51)
[2020-07-19] MEDS: AMMONIUM LACTATE 12% LOTION 225 GM BOTTLE TP PRN (12:53)
[2020-07-19 13:02] LABS: HEMATOCRIT 24.4 % (35.4-49); HEMOGLOBIN 7.5 GM/dL (11.7-16.9); MCHC 30.8 g/dl (32.0-35.9); MEAN CELL VOLUME 94.3 fl (80-96); PLATELET COUNT 222 K/MM3 (134-434); RBC 2.58 M/mm3 (4.00-5.60); RDW 19.9 % (11.9-15.9); WHITE BLOOD COUNT 5.7 K/mm3 (4.0-10.0)
[2020-07-19] MEDS: COLLAGENASE CLOSTRIDIUM HIST. 30 GRAMS TUBE TP SCH (13:07)
[2020-07-19] MEDS: TAMSULOSIN HCL 0.4 MG CAP PO SCH (13:08)
[2020-07-19 13:35] LABS: BLOOD UREA NITROGEN 39.4 mg/dL (7-18); CALCIUM 8.1 mg/dL (8.5-10.1)
[2020-07-19 14:13] LABS: CREATININE 7.5 mg/dL (0.55-1.3)
[2020-07-19] MEDS: BACITRACIN 15 GM TUBE TOPICAL OINTMENT TP SCH (18:23)
[2020-07-19] MEDS: ATORVASTATIN CA 80 MG TABLET (FP) PO SCH (21:49)
[2020-07-20] MEDS: glipiZIDE 10 MG TABLET (FP) PO SCH (06:25)
[2020-07-20] MEDS: INSULIN SLIDING SCALE (NOVOLOG) 1 VIAL SQ SCH ×3 (06:28→21:59)
[2020-07-20] MEDS ORDERED: EPOETIN ALFA-EPBX 10,000 UNIT/ML VIAL SQ ONE ×2 (08:00→17:30)
[2020-07-20 08:39] LABS: BASO % 1.5 % (0-2.0); EOS % 2.3 % (0-4.5); HEMATOCRIT 25.2 % (35.4-49); LYMPH % 21.6 % (8-40); MCH 29.8 pg (25.7-33.7); MCHC 31.8 g/dl (32.0-35.9); MEAN CELL VOLUME 93.8 fl (80-96); MEAN PLT VOLUME 7.5 fl (7.5-11.1); MONO % 9.1 % (3.8-10.2); NEUT % 65.5 % (42.8-82.8); PLATELET COUNT 214 K/MM3 (134-434); RBC 2.68 M/mm3 (4.00-5.60); WHITE BLOOD COUNT 5.5 K/mm3 (4.0-10.0)
[2020-07-20 08:51] LABS: POTASSIUM 4.1 mmol/L (3.5-5.1)
[2020-07-20 08:52] LABS: BLOOD UREA NITROGEN 56.1 mg/dL (7-18); CALCIUM 8.2 mg/dL (8.5-10.1)
[2020-07-20 09:06] LABS: CREATININE 9.2 mg/dL (0.55-1.3)
[2020-07-20] MEDS: ASCORBIC ACID 500 MG TABLET (FP) PO SCH ×2 (10:24→21:43)
[2020-07-20] MEDS: ASPIRIN COATED 81 MG TABLET.EC PO SCH (10:24)
[2020-07-20] MEDS: LABETALOL HCL 200 MG TABLET (FP) PO SCH ×2 (10:24→21:43)
[2020-07-20] MEDS: LISINOPRIL 20 MG TABLET PO SCH (10:25)
[2020-07-20] MEDS: CHOLECALCIFEROL (VIT D3) 1,000 UNIT (25 MCG) TABLET PO SCH (10:25)
[2020-07-20] MEDS: TAMSULOSIN HCL 0.4 MG CAP PO SCH (10:26)
[2020-07-20] MEDS: NIFEdipine E.R 60 MG TABLET PO SCH (10:26)
[2020-07-20] MEDS: COLLAGENASE CLOSTRIDIUM HIST. 30 GRAMS TUBE TP SCH (10:26)
[2020-07-20] MEDS: PANTOPRAZOLE 40 MG TABLET PO SCH (10:26)
[2020-07-20] MEDS: CALCIUM 500MG/VIT-D 200 UNITS COMBO TABLET (FP) PO SCH (10:26)
[2020-07-20] MEDS: FAMOTIDINE 10 MG TABLET PO SCH (10:26)
[2020-07-20] MEDS: BACITRACIN 15 GM TUBE TOPICAL OINTMENT TP SCH (10:35)
[2020-07-20] MEDS ORDERED: SODIUM CHLORIDE 250 ML IV PRN (17:30)
[2020-07-20] MEDS: HEPARIN NA (PORCINE) 5,000 UNITS/ML 1ML VIAL SQ SCH (21:42)
[2020-07-20] MEDS: ATORVASTATIN CA 80 MG TABLET (FP) PO SCH (21:48)
[2020-07-21] MEDS: INSULIN SLIDING SCALE (NOVOLOG) 1 VIAL SQ SCH ×5 (06:31→21:20)
[2020-07-21] MEDS: glipiZIDE 10 MG TABLET (FP) PO SCH ×3 (06:32→18:00)
[2020-07-21 09:21] LABS: BASO % 1.2 % (0-2.0); EOS % 2.8 % (0-4.5); HEMATOCRIT 25.3 % (35.4-49); LYMPH % 21.2 % (8-40); MCH 29.6 pg (25.7-33.7); MCHC 31.7 g/dl (32.0-35.9); MEAN CELL VOLUME 93.5 fl (80-96); MEAN PLT VOLUME 7.9 fl (7.5-11.1); MONO % 8.3 % (3.8-10.2); NEUT % 66.5 % (42.8-82.8); PLATELET COUNT 166 K/MM3 (134-434); RDW 19.8 % (11.9-15.9); WHITE BLOOD COUNT 5.5 K/mm3 (4.0-10.0)
[2020-07-21 09:39] LABS: POTASSIUM 3.7 mmol/L (3.5-5.1)
[2020-07-21 09:55] LABS: BLOOD UREA NITROGEN 40.9 mg/dL (7-18)
[2020-07-21 09:59] LABS: CREATININE 7.1 mg/dL (0.55-1.3)
[2020-07-21] MEDS: TAMSULOSIN HCL 0.4 MG CAP PO SCH (11:25)
[2020-07-21] MEDS: HEPARIN NA (PORCINE) 5,000 UNITS/ML 1ML VIAL SQ SCH ×2 (11:25→21:18)
[2020-07-21] MEDS: FAMOTIDINE 10 MG TABLET PO SCH (11:25)
[2020-07-21] MEDS: ASPIRIN COATED 81 MG TABLET.EC PO SCH (11:25)
[2020-07-21] MEDS: BACITRACIN 15 GM TUBE TOPICAL OINTMENT TP SCH (11:25)
[2020-07-21] MEDS: CALCIUM 500MG/VIT-D 200 UNITS COMBO TABLET (FP) PO SCH (11:26)
[2020-07-21] MEDS: NIFEdipine E.R 60 MG TABLET PO SCH (11:26)
[2020-07-21] MEDS: LISINOPRIL 20 MG TABLET PO SCH (11:26)
[2020-07-21] MEDS: LABETALOL HCL 200 MG TABLET (FP) PO SCH ×2 (11:26→21:18)
[2020-07-21] MEDS: CHOLECALCIFEROL (VIT D3) 1,000 UNIT (25 MCG) TABLET PO SCH (11:27)
[2020-07-21] MEDS: PANTOPRAZOLE 40 MG TABLET PO SCH (11:27)
[2020-07-21] MEDS: ASCORBIC ACID 500 MG TABLET (FP) PO SCH ×2 (11:27→21:18)
[2020-07-21] MEDS: COLLAGENASE CLOSTRIDIUM HIST. 30 GRAMS TUBE TP SCH (11:27)
[2020-07-21] MEDS: ATORVASTATIN CA 80 MG TABLET (FP) PO SCH (21:18)
[2020-07-22] MEDS: INSULIN SLIDING SCALE (NOVOLOG) 1 VIAL SQ SCH ×4 (06:37→21:42)
[2020-07-22] MEDS: glipiZIDE 10 MG TABLET (FP) PO SCH ×2 (06:37→18:00)
[2020-07-22] MEDS: COLLAGENASE CLOSTRIDIUM HIST. 30 GRAMS TUBE TP SCH ×2 (10:00→18:10)
[2020-07-22] MEDS: BACITRACIN 15 GM TUBE TOPICAL OINTMENT TP SCH ×2 (10:00→18:11)
[2020-07-22] MEDS: ASPIRIN COATED 81 MG TABLET.EC PO SCH (11:19)
[2020-07-22] MEDS: HEPARIN NA (PORCINE) 5,000 UNITS/ML 1ML VIAL SQ SCH ×2 (11:19→21:26)
[2020-07-22] MEDS: ASCORBIC ACID 500 MG TABLET (FP) PO SCH ×2 (11:19→21:26)
[2020-07-22] MEDS: TAMSULOSIN HCL 0.4 MG CAP PO SCH (11:19)
[2020-07-22] MEDS: LABETALOL HCL 200 MG TABLET (FP) PO SCH ×2 (11:19→21:26)
[2020-07-22] MEDS: CHOLECALCIFEROL (VIT D3) 1,000 UNIT (25 MCG) TABLET PO SCH (11:20)
[2020-07-22] MEDS: NIFEdipine E.R 60 MG TABLET PO SCH (11:20)
[2020-07-22] MEDS: PANTOPRAZOLE 40 MG TABLET PO SCH (11:20)
[2020-07-22] MEDS: LISINOPRIL 20 MG TABLET PO SCH (11:21)
[2020-07-22] MEDS: FAMOTIDINE 10 MG TABLET PO SCH (11:21)
[2020-07-22] MEDS: CALCIUM 500MG/VIT-D 200 UNITS COMBO TABLET (FP) PO SCH (11:21)
[2020-07-22] MEDS ORDERED: SODIUM CHLORIDE 250 ML IV PRN (15:22)
[2020-07-22 15:55] LABS: HEMATOCRIT 25.7 % (35.4-49); MCH 29.3 pg (25.7-33.7); MCHC 31.1 g/dl (32.0-35.9); MEAN CELL VOLUME 94.4 fl (80-96); MEAN PLT VOLUME 8.2 fl (7.5-11.1); PLATELET COUNT 193 K/MM3 (134-434); RBC 2.72 M/mm3 (4.00-5.60); RDW 19.7 % (11.9-15.9); WHITE BLOOD COUNT 5.2 K/mm3 (4.0-10.0)
[2020-07-22 16:16] LABS: POTASSIUM 4.2 mmol/L (3.5-5.1)
[2020-07-22 16:18] LABS: BLOOD UREA NITROGEN 60.2 mg/dL (7-18); CALCIUM 8.1 mg/dL (8.5-10.1)
[2020-07-22 16:22] LABS: PHOSPHOROUS 4.1 mg/dL (2.5-4.9)
[2020-07-22 16:45] LABS: CREATININE 8.9 mg/dL (0.55-1.3)
[2020-07-22] MEDS: EPOETIN ALFA-EPBX 20,000 UNIT/ML VIAL IVPUSH ONE ×2 (17:28→18:15)
[2020-07-22] MEDS: ATORVASTATIN CA 80 MG TABLET (FP) PO SCH (21:26)
[2020-07-23] MEDS: glipiZIDE 10 MG TABLET (FP) PO SCH ×2 (06:55→17:43)
[2020-07-23] MEDS: INSULIN SLIDING SCALE (NOVOLOG) 1 VIAL SQ SCH ×3 (06:55→17:43)
[2020-07-23] MEDS: COLLAGENASE CLOSTRIDIUM HIST. 30 GRAMS TUBE TP SCH ×2 (08:15→10:08)
[2020-07-23] MEDS: AMMONIUM LACTATE 12% LOTION 225 GM BOTTLE TP PRN (08:16)
[2020-07-23] MEDS: BACITRACIN 15 GM TUBE TOPICAL OINTMENT TP SCH ×2 (08:16→10:08)
[2020-07-23] MEDS: NIFEdipine E.R 60 MG TABLET PO SCH (10:06)
[2020-07-23] MEDS: LISINOPRIL 20 MG TABLET PO SCH (10:06)
[2020-07-23] MEDS: PANTOPRAZOLE 40 MG TABLET PO SCH (10:06)
[2020-07-23] MEDS: ASPIRIN COATED 81 MG TABLET.EC PO SCH (10:07)
[2020-07-23] MEDS: LABETALOL HCL 200 MG TABLET (FP) PO SCH (10:07)
[2020-07-23] MEDS: CHOLECALCIFEROL (VIT D3) 1,000 UNIT (25 MCG) TABLET PO SCH (10:07)
[2020-07-23] MEDS: CALCIUM 500MG/VIT-D 200 UNITS COMBO TABLET (FP) PO SCH (10:07)
[2020-07-23] MEDS: TAMSULOSIN HCL 0.4 MG CAP PO SCH (10:07)
[2020-07-23] MEDS: ASCORBIC ACID 500 MG TABLET (FP) PO SCH (10:08)
[2020-07-23] MEDS: FAMOTIDINE 10 MG TABLET PO SCH (10:08)
[2020-07-23] MEDS: HEPARIN NA (PORCINE) 5,000 UNITS/ML 1ML VIAL SQ SCH (10:08)
[2020-07-23 14:49] VITALS: BP 107/60; TEMP 98.9
[2020-07-23 15:55] VITALS: PULSE 77
== END 2020-07-23 18:35 | disposition home or self-care (01) | DRG 177 ==
LOC: JER 07:59 → JERBED 12:33 → J4W 14:36 → J5WEST-2 07-18 15:35
PROVIDERS: ATTEND Internal Medicine
PROC: XW13325 Transfusion of Convalescent Plasma (Nonautologous) into Peripheral Vein, Percutaneous Approach, New Technology Group 5 (ICD-10-PCS; principal; 2020-06-30)
PROC: 5A1D70Z Performance of Urinary Filtration, Intermittent, Less than 6 Hours Per Day (ICD-10-PCS; 2020-07-01)
PROC: 5A1D70Z Performance of Urinary Filtration, Intermittent, Less than 6 Hours Per Day (ICD-10-PCS; 2020-07-04)
PROC: 5A1D70Z Performance of Urinary Filtration, Intermittent, Less than 6 Hours Per Day (ICD-10-PCS; 2020-07-06)
PROC: 5A1D70Z Performance of Urinary Filtration, Intermittent, Less than 6 Hours Per Day (ICD-10-PCS; 2020-07-09)
PROC: 5A1D70Z Performance of Urinary Filtration, Intermittent, Less than 6 Hours Per Day (ICD-10-PCS; 2020-07-11)
PROC: 5A1D70Z Performance of Urinary Filtration, Intermittent, Less than 6 Hours Per Day (ICD-10-PCS; 2020-07-13)
PROC: 5A1D70Z Performance of Urinary Filtration, Intermittent, Less than 6 Hours Per Day (ICD-10-PCS; 2020-07-15)
PROC: 5A1D70Z Performance of Urinary Filtration, Intermittent, Less than 6 Hours Per Day (ICD-10-PCS; 2020-07-18)
PROC: 5A1D70Z Performance of Urinary Filtration, Intermittent, Less than 6 Hours Per Day (ICD-10-PCS; 2020-07-20)
DX: U07.1 COVID-19 (principal); N18.6 End stage renal disease; I50.21 Acute systolic (congestive) heart failure; J12.82 Pneumonia due to coronavirus disease 2019; I13.2 Hypertensive heart and chronic kidney disease with heart failure and with stage 5 chronic kidney disease, or end stage renal disease; I25.10 Atherosclerotic heart disease of native coronary artery without angina pectoris; E78.5 Hyperlipidemia, unspecified; E11.22 Type 2 diabetes mellitus with diabetic chronic kidney disease; E11.51 Type 2 diabetes mellitus with diabetic peripheral angiopathy without gangrene; E87.5 Hyperkalemia; E87.79 Other fluid overload; I67.2 Cerebral atherosclerosis; N25.0 Renal osteodystrophy; R50.9 Fever, unspecified; D50.9 Iron deficiency anemia, unspecified; I27.20 Pulmonary hypertension, unspecified; K21.00 Gastro-esophageal reflux disease with esophagitis, without bleeding; R09.02 Hypoxemia; N40.0 Benign prostatic hyperplasia without lower urinary tract symptoms; R00.0 Tachycardia, unspecified; E83.51 Hypocalcemia; Z99.2 Dependence on renal dialysis; S91.302A Unspecified open wound, left foot, initial encounter; S91.301A Unspecified open wound, right foot, initial encounter; Z89.412 Acquired absence of left great toe; Z86.73 Personal history of transient ischemic attack (TIA), and cerebral infarction without residual deficits; Z89.011 Acquired absence of right thumb; Z95.5 Presence of coronary angioplasty implant and graft
CPT/HCPCS: 36415; 36430; 71045-TC-FY; 71275-TC; 73630-TC-LT; 73630-TC-RT-FY; 73701-TC-RT; 80048; 80053; 82272; 82310; 82550; 82553; 82728; 82962; 83540; 83550; 83615; 83735; 83880; 83970; 84100; 84484; 85025; 85027; 85045; 85379; 85610; 85651; 85730; 86140; 86803; 86850; 86900; 86901; 86922; 87040; 87340; 87804; 93005; 93010; 93970-TC; 93971-TC; 94761; 97116-GP; 97162-GP; 99285-25; C9803; J0131; J0885; J1644; P9017; P9058; Q5106; Q9967; U0003

== ENCOUNTER 2020-09-02 14:49 | Inpatient (IN) | payer OTHER ==
[2020-09-02] MEDS ORDERED: ACETAMINOPHEN 1000 MG/100 ML VIAL (NON FORMULARY) IVPB ONE (15:34)
[2020-09-02] MEDS ORDERED: VANCOMYCIN 1,000 MG in DEXTROSE 5%-WATER - 250 ML IVPB ONE (16:18)
[2020-09-02] MEDS ORDERED: CEFTRIAXONE 1 GM in DEXTROSE 5%-WATER - 100 ML IVPB ONE (16:18)
[2020-09-02 16:41] LABS: BASO % 0.5 % (0-2.0); LYMPH % 4.5 % (8-40); MCH 28.6 pg (25.7-33.7); MEAN CELL VOLUME 89.4 fl (80-96); MEAN PLT VOLUME 7.7 fl (7.5-11.1); MONO % 9.2 % (3.8-10.2); NEUT % 85.8 % (42.8-82.8); PLATELET COUNT 306 K/MM3 (134-434); RBC 3.13 M/mm3 (4.00-5.60); RDW 16.8 % (11.9-15.9); WHITE BLOOD COUNT 10.7 K/mm3 (4.0-10.0)
[2020-09-02] MEDS ORDERED: ACETAMINOPHEN INJECTION 100 ML IVPB ONE (16:42)
[2020-09-02] MEDS ORDERED: VANCOMYCIN 1 GRAM (PRE-DOCKED) 1,000 MG/250 ML BAG IVPB ONE (16:42)
[2020-09-02] MEDS ORDERED: CEFTRIAXONE 1 GM/50 ML BAG ONE (16:43)
[2020-09-02 16:45] LABS: VENOUS BASE EXCESS 0.9 mmol/L (-2-2); VENOUS O2 SATURATION 55.2 % (70-80); VENOUS PCO2 43.6 mmHg (38-52); VENOUS PH 7.394 (7.310-7.410)
[2020-09-02 16:48] LABS: INR 1.48 (0.83-1.09); PROTHROMBIN TIME (PATIENT) 17.7 SEC (9.7-13.0)
[2020-09-02 16:51] LABS: ACTIVATED PTT 30.2 SECONDS (25.2-36.5)
[2020-09-02 17:04] LABS: BILIRUBIN,DIRECT 0.3 mg/dL (0.0-0.2)
[2020-09-02 17:06] LABS: BILIRUBIN,TOTAL 0.6 mg/dL (0.2-1); TOT PROT 7.8 g/dl (6.4-8.2)
[2020-09-02 17:55] LABS: CREATININE 9.6 mg/dL (0.55-1.3)
[2020-09-02] MEDS ORDERED: SODIUM CHLORIDE 250 ML IV PRN (19:01)
[2020-09-02] MEDS: INSULIN SLIDING SCALE (NOVOLOG) 1 VIAL SQ SCH (20:37)
[2020-09-02] MEDS ORDERED: ATORVASTATIN CA 80 MG TABLET (FP) ONE (21:40)
[2020-09-02] MEDS ORDERED: HEPARIN NA (PORCINE) 5,000 UNITS/ML 1ML VIAL ONE (21:40)
[2020-09-02] MEDS ORDERED: LABETALOL HCL 100 MG TABLET (FP) ONE (21:40)
[2020-09-02] MEDS: LABETALOL HCL 200 MG TABLET (FP) PO SCH (21:46)
[2020-09-02] MEDS: ATORVASTATIN CA 80 MG TABLET (FP) PO SCH (21:46)
[2020-09-02] MEDS: HEPARIN NA (PORCINE) 5,000 UNITS/ML 1ML VIAL SQ SCH (21:46)
[2020-09-02] MEDS ORDERED: levETIRAcetam 500 MG TABLET (FP) PO SCH (22:00)
[2020-09-02] MEDS ORDERED: ALBUTEROL SO4 2.5/IPRATROPIUM 0.5 INH SOL 3 ML VIAL.NEB. NEB ONE ×2 (23:12)
[2020-09-03] MEDS ORDERED: ACETAMINOPHEN 325 MG TABLET (FP) ONE ×2 (00:06→18:06)
[2020-09-03] MEDS: ACETAMINOPHEN 325 MG TABLET (FP) PO PRN ×3 (00:14→18:03)
[2020-09-03] MEDS: HEPARIN NA (PORCINE) 5,000 UNITS/ML 1ML VIAL SQ SCH ×3 (06:11→22:23)
[2020-09-03] MEDS: PANTOPRAZOLE 40 MG TABLET PO SCH (08:30)
[2020-09-03] MEDS: TAMSULOSIN HCL 0.4 MG CAP PO SCH (08:30)
[2020-09-03] MEDS ORDERED: NIFEdipine E.R. 30 MG TABLET ONE (08:34)
[2020-09-03] MEDS ORDERED: TAMSULOSIN HCL 0.4 MG CAP ONE (08:34)
[2020-09-03] MEDS ORDERED: PANTOPRAZOLE 40 MG TABLET ONE (08:34)
[2020-09-03] MEDS ORDERED: ASPIRIN COATED 81 MG TABLET.EC ONE (08:34)
[2020-09-03] MEDS ORDERED: CEFTRIAXONE 1 GM/50 ML BAG ONE (08:36)
[2020-09-03] MEDS: INSULIN SLIDING SCALE (NOVOLOG) 1 VIAL SQ SCH ×3 (09:25→18:02)
[2020-09-03] MEDS: ASPIRIN COATED 81 MG TABLET.EC PO SCH (09:26)
[2020-09-03] MEDS ORDERED: CLOPIDOGREL BISULFATE 75 MG TABLET (FP) PO SCH (10:00)
[2020-09-03] MEDS: CEFTRIAXONE 1 GM in DEXTROSE 5%-WATER - 50 ML IVPB SCH (10:00)
[2020-09-03 11:56] LABS: BASO % 0.6 % (0-2.0); EOS % 0.3 % (0-4.5); HEMATOCRIT 26.5 % (35.4-49); HEMOGLOBIN 8.4 GM/dL (11.7-16.9); MCH 28.1 pg (25.7-33.7); MCHC 31.7 g/dl (32.0-35.9); MEAN CELL VOLUME 88.9 fl (80-96); MEAN PLT VOLUME 7.7 fl (7.5-11.1); MONO % 11.3 % (3.8-10.2); NEUT % 81.8 % (42.8-82.8); PLATELET COUNT 295 K/MM3 (134-434); RBC 2.98 M/mm3 (4.00-5.60); RDW 16.7 % (11.9-15.9); WHITE BLOOD COUNT 11.5 K/mm3 (4.0-10.0)
[2020-09-03 12:06] LABS: POTASSIUM 5.6 mmol/L (3.5-5.1)
[2020-09-03 12:09] LABS: CALCIUM 8.2 mg/dL (8.5-10.1)
[2020-09-03 12:10] LABS: ALBUMIN 2.7 g/dl (3.4-5.0); BLOOD UREA NITROGEN 71.2 mg/dL (7-18)
[2020-09-03 12:14] LABS: TOT PROT 6.9 g/dl (6.4-8.2)
[2020-09-03 13:28] LABS: CREATININE 10.9 mg/dL (0.55-1.3)
[2020-09-03] MEDS: NIFEdipine E.R 60 MG TABLET PO SCH (15:40)
[2020-09-03] MEDS: LABETALOL HCL 200 MG TABLET (FP) PO SCH ×2 (15:40→22:24)
[2020-09-03] MEDS ORDERED: HEPARIN NA (PORCINE) 5,000 UNITS/ML 1ML VIAL ONE (15:48)
[2020-09-03] MEDS: ATORVASTATIN CA 80 MG TABLET (FP) PO SCH (22:24)
[2020-09-04] MEDS: guaiFENesin/D-METHORPHAN HB 10 ML UNIT-DOSE CUPS PO PRN ×2 (02:13→06:19)
[2020-09-04] MEDS: HEPARIN NA (PORCINE) 5,000 UNITS/ML 1ML VIAL SQ SCH ×3 (06:19→22:42)
[2020-09-04] MEDS: PANTOPRAZOLE 40 MG TABLET PO SCH (06:19)
[2020-09-04] MEDS: INSULIN SLIDING SCALE (NOVOLOG) 1 VIAL SQ SCH ×3 (06:19→17:40)
[2020-09-04] MEDS ORDERED: ACETAMINOPHEN 325 MG TABLET (FP) ONE (07:44)
[2020-09-04] MEDS: ACETAMINOPHEN 325 MG TABLET (FP) PO PRN (08:00)
[2020-09-04] MEDS: TAMSULOSIN HCL 0.4 MG CAP PO SCH (09:27)
[2020-09-04] MEDS ORDERED: ASPIRIN 325 MG ENTERIC COATED TABLET (FP) ONE (11:19)
[2020-09-04] MEDS: LABETALOL HCL 200 MG TABLET (FP) PO SCH ×2 (11:27→22:42)
[2020-09-04] MEDS: ASPIRIN COATED 81 MG TABLET.EC PO SCH (11:27)
[2020-09-04] MEDS: CEFTRIAXONE 1 GM in DEXTROSE 5%-WATER - 50 ML IVPB SCH (11:28)
[2020-09-04] MEDS: NIFEdipine E.R 60 MG TABLET PO SCH (11:28)
[2020-09-04] MEDS ORDERED: VANCOMYCIN 1 GRAM (PRE-DOCKED) 1,000 MG/250 ML BAG IVPB ONE ×2 (14:19→17:01)
[2020-09-04 15:04] LABS: BASO % 0.8 % (0-2.0); EOS % 1.6 % (0-4.5); HEMATOCRIT 24.5 % (35.4-49); LYMPH % 11.9 % (8-40); MCH 28.8 pg (25.7-33.7); MCHC 32.5 g/dl (32.0-35.9); MEAN CELL VOLUME 88.6 fl (80-96); MEAN PLT VOLUME 7.7 fl (7.5-11.1); MONO % 13.2 % (3.8-10.2); NEUT % 72.5 % (42.8-82.8); PLATELET COUNT 258 K/MM3 (134-434); RBC 2.77 M/mm3 (4.00-5.60); RDW 16.4 % (11.9-15.9); WHITE BLOOD COUNT 9.1 K/mm3 (4.0-10.0)
[2020-09-04 15:47] LABS: POTASSIUM 4.2 mmol/L (3.5-5.1)
[2020-09-04 15:49] LABS: ALBUMIN 2.4 g/dl (3.4-5.0); CALCIUM 7.5 mg/dL (8.5-10.1)
[2020-09-04 15:50] LABS: BLOOD UREA NITROGEN 52.1 mg/dL (7-18)
[2020-09-04 15:54] LABS: BILIRUBIN,TOTAL 0.6 mg/dL (0.2-1); TOT PROT 6.4 g/dl (6.4-8.2)
[2020-09-04] MEDS ORDERED: HEPARIN NA (PORCINE) 5,000 UNITS/ML 1ML VIAL ONE (17:01)
[2020-09-04] MEDS: ATORVASTATIN CA 80 MG TABLET (FP) PO SCH (22:42)
[2020-09-05] MEDS: guaiFENesin/D-METHORPHAN HB 10 ML UNIT-DOSE CUPS PO PRN (04:54)
[2020-09-05] MEDS: INSULIN SLIDING SCALE (NOVOLOG) 1 VIAL SQ SCH ×2 (06:22→12:02)
[2020-09-05] MEDS: HEPARIN NA (PORCINE) 5,000 UNITS/ML 1ML VIAL SQ SCH ×3 (06:22→21:59)
[2020-09-05] MEDS: PANTOPRAZOLE 40 MG TABLET PO SCH (06:31)
[2020-09-05] MEDS ORDERED: SODIUM CHLORIDE 250 ML IV PRN (06:43)
[2020-09-05] MEDS ORDERED: EPOETIN ALFA-EPBX 20,000 UNIT/ML VIAL SQ ONE (08:00)
[2020-09-05 09:47] LABS: POTASSIUM 4.2 mmol/L (3.5-5.1)
[2020-09-05 09:50] LABS: BLOOD UREA NITROGEN 66.6 mg/dL (7-18); CALCIUM 7.6 mg/dL (8.5-10.1)
[2020-09-05 09:54] LABS: PHOSPHOROUS 3.4 mg/dL (2.5-4.9)
[2020-09-05 09:55] LABS: CREATININE 9.2 mg/dL (0.55-1.3)
[2020-09-05 09:58] LABS: HEMATOCRIT 22.3 % (35.4-49); HEMOGLOBIN 7.4 GM/dL (11.7-16.9); MCH 28.9 pg (25.7-33.7); MCHC 33.2 g/dl (32.0-35.9); MEAN CELL VOLUME 86.9 fl (80-96); PLATELET COUNT 303 K/MM3 (134-434); RBC 2.57 M/mm3 (4.00-5.60); RDW 16.5 % (11.9-15.9); WHITE BLOOD COUNT 8.8 K/mm3 (4.0-10.0)
[2020-09-05] MEDS: NIFEdipine E.R 60 MG TABLET PO SCH (12:02)
[2020-09-05] MEDS: LABETALOL HCL 200 MG TABLET (FP) PO SCH ×2 (12:03→21:59)
[2020-09-05] MEDS: ASPIRIN COATED 81 MG TABLET.EC PO SCH (12:03)
[2020-09-05] MEDS: TAMSULOSIN HCL 0.4 MG CAP PO SCH (12:03)
[2020-09-05] MEDS ORDERED: VANCOMYCIN 1 GM in D5W (PRE-DOCKED) 1,000 MG/250 ML IVPB ONE (13:04)
[2020-09-05] MEDS: ATORVASTATIN CA 80 MG TABLET (FP) PO SCH (21:59)
[2020-09-06] MEDS: HEPARIN NA (PORCINE) 5,000 UNITS/ML 1ML VIAL SQ SCH ×3 (06:25→21:04)
[2020-09-06] MEDS: PANTOPRAZOLE 40 MG TABLET PO SCH (06:26)
[2020-09-06] MEDS: INSULIN SLIDING SCALE (NOVOLOG) 1 VIAL SQ SCH ×5 (06:38→20:42)
[2020-09-06 08:50] LABS: BASO % 0.6 % (0-2.0); HEMATOCRIT 25.4 % (35.4-49); HEMOGLOBIN 8.4 GM/dL (11.7-16.9); LYMPH % 12.6 % (8-40); MCH 28.6 pg (25.7-33.7); MEAN CELL VOLUME 86.6 fl (80-96); MONO % 10.6 % (3.8-10.2); NEUT % 74.2 % (42.8-82.8); PLATELET COUNT 299 K/MM3 (134-434); RBC 2.93 M/mm3 (4.00-5.60); RDW 17.1 % (11.9-15.9); WHITE BLOOD COUNT 9.1 K/mm3 (4.0-10.0)
[2020-09-06] MEDS: TAMSULOSIN HCL 0.4 MG CAP PO SCH (09:13)
[2020-09-06] MEDS: NIFEdipine E.R 60 MG TABLET PO SCH (09:13)
[2020-09-06] MEDS: ASPIRIN COATED 81 MG TABLET.EC PO SCH (09:13)
[2020-09-06] MEDS: LABETALOL HCL 200 MG TABLET (FP) PO SCH ×2 (09:13→21:04)
[2020-09-06 09:19] LABS: POTASSIUM 3.8 mmol/L (3.5-5.1)
[2020-09-06 09:36] LABS: CALCIUM 7.3 mg/dL (8.5-10.1)
[2020-09-06 09:37] LABS: ALBUMIN 2.3 g/dl (3.4-5.0); BLOOD UREA NITROGEN 49.1 mg/dL (7-18); MAGNESIUM 1.9 mg/dL (1.8-2.4)
[2020-09-06 09:40] LABS: CREATININE 6.8 mg/dL (0.55-1.3); PHOSPHOROUS 2.2 mg/dL (2.5-4.9)
[2020-09-06 09:41] LABS: BILIRUBIN,TOTAL 0.8 mg/dL (0.2-1); TOT PROT 6.6 g/dl (6.4-8.2)
[2020-09-06] MEDS ORDERED: SODIUM CHLORIDE 250 ML IV PRN (13:29)
[2020-09-06] MEDS: guaiFENesin/D-METHORPHAN HB 10 ML UNIT-DOSE CUPS PO PRN (18:27)
[2020-09-06] MEDS: ACETAMINOPHEN 325 MG TABLET (FP) PO PRN (21:04)
[2020-09-06] MEDS: ATORVASTATIN CA 80 MG TABLET (FP) PO SCH (21:04)
[2020-09-07] MEDS: INSULIN SLIDING SCALE (NOVOLOG) 1 VIAL SQ SCH ×3 (06:57→19:05)
[2020-09-07] MEDS: PANTOPRAZOLE 40 MG TABLET PO SCH (06:58)
[2020-09-07] MEDS: HEPARIN NA (PORCINE) 5,000 UNITS/ML 1ML VIAL SQ SCH ×3 (06:58→21:48)
[2020-09-07] MEDS ORDERED: EPOETIN ALFA-EPBX 20,000 UNIT/ML VIAL SQ ONE (08:00)
[2020-09-07 08:29] LABS: HEMATOCRIT 23.5 % (35.4-49); MCH 29.2 pg (25.7-33.7); MCHC 34.1 g/dl (32.0-35.9); MEAN CELL VOLUME 85.4 fl (80-96); MEAN PLT VOLUME 8.1 fl (7.5-11.1); PLATELET COUNT 299 K/MM3 (134-434); RBC 2.75 M/mm3 (4.00-5.60); RDW 17.5 % (11.9-15.9); WHITE BLOOD COUNT 9.5 K/mm3 (4.0-10.0)
[2020-09-07 08:50] LABS: POTASSIUM 4.1 mmol/L (3.5-5.1)
[2020-09-07 08:52] LABS: BLOOD UREA NITROGEN 62.8 mg/dL (7-18); CALCIUM 7.4 mg/dL (8.5-10.1)
[2020-09-07 08:53] LABS: MAGNESIUM 1.9 mg/dL (1.8-2.4)
[2020-09-07 08:56] LABS: PHOSPHOROUS 2.5 mg/dL (2.5-4.9)
[2020-09-07 09:06] LABS: CREATININE 8.4 mg/dL (0.55-1.3)
[2020-09-07] MEDS ORDERED: PT OWN MED DRAWER 7, Y5N ONE (09:38)
[2020-09-07] MEDS: TAMSULOSIN HCL 0.4 MG CAP PO SCH ×2 (09:46→12:34)
[2020-09-07] MEDS: ASPIRIN COATED 81 MG TABLET.EC PO SCH ×2 (09:47→12:35)
[2020-09-07] MEDS: NIFEdipine E.R 60 MG TABLET PO SCH ×2 (09:47→12:35)
[2020-09-07] MEDS: LABETALOL HCL 200 MG TABLET (FP) PO SCH ×2 (09:47→21:47)
[2020-09-07] MEDS: guaiFENesin/D-METHORPHAN HB 10 ML UNIT-DOSE CUPS PO PRN (21:47)
[2020-09-07] MEDS: ATORVASTATIN CA 80 MG TABLET (FP) PO SCH (21:47)
[2020-09-08] MEDS: ACETAMINOPHEN 325 MG TABLET (FP) PO PRN ×2 (02:37→21:43)
[2020-09-08] MEDS: HEPARIN NA (PORCINE) 5,000 UNITS/ML 1ML VIAL SQ SCH ×3 (06:10→21:43)
[2020-09-08] MEDS: INSULIN SLIDING SCALE (NOVOLOG) 1 VIAL SQ SCH ×3 (06:10→17:33)
[2020-09-08] MEDS: PANTOPRAZOLE 40 MG TABLET PO SCH (06:10)
[2020-09-08 08:12] LABS: BASO % 0.8 % (0-2.0); HEMATOCRIT 25.5 % (35.4-49); HEMOGLOBIN 8.3 GM/dL (11.7-16.9); LYMPH % 14.5 % (8-40); MCH 28.2 pg (25.7-33.7); MCHC 32.6 g/dl (32.0-35.9); MEAN CELL VOLUME 86.7 fl (80-96); MONO % 8.8 % (3.8-10.2); NEUT % 73.9 % (42.8-82.8); PLATELET COUNT 379 K/MM3 (134-434); RBC 2.94 M/mm3 (4.00-5.60); RDW 17.3 % (11.9-15.9); WHITE BLOOD COUNT 10.2 K/mm3 (4.0-10.0)
[2020-09-08 08:28] LABS: POTASSIUM 3.6 mmol/L (3.5-5.1)
[2020-09-08 08:51] LABS: BLOOD UREA NITROGEN 41.4 mg/dL (7-18); CALCIUM 7.7 mg/dL (8.5-10.1); MAGNESIUM 1.9 mg/dL (1.8-2.4)
[2020-09-08 08:54] LABS: CREATININE 6.4 mg/dL (0.55-1.3)
[2020-09-08 08:55] LABS: PHOSPHOROUS 2.2 mg/dL (2.5-4.9)
[2020-09-08] MEDS: ASPIRIN COATED 81 MG TABLET.EC PO SCH (11:33)
[2020-09-08] MEDS: NIFEdipine E.R 60 MG TABLET PO SCH (11:33)
[2020-09-08] MEDS: guaiFENesin/D-METHORPHAN HB 10 ML UNIT-DOSE CUPS PO PRN ×2 (11:33→21:45)
[2020-09-08] MEDS: TAMSULOSIN HCL 0.4 MG CAP PO SCH (11:34)
[2020-09-08] MEDS: LABETALOL HCL 200 MG TABLET (FP) PO SCH ×2 (11:34→21:43)
[2020-09-08] MEDS ORDERED: SODIUM CHLORIDE 250 ML IV PRN (12:43)
[2020-09-08] MEDS ORDERED: NAPH,MB-DB/K PH,MBDB POWDER PACKET PO ONE (18:21)
[2020-09-08] MEDS: ATORVASTATIN CA 80 MG TABLET (FP) PO SCH (21:43)
[2020-09-09] MEDS: PANTOPRAZOLE 40 MG TABLET PO SCH (06:26)
[2020-09-09] MEDS: HEPARIN NA (PORCINE) 5,000 UNITS/ML 1ML VIAL SQ SCH ×3 (06:27→22:11)
[2020-09-09] MEDS: INSULIN SLIDING SCALE (NOVOLOG) 1 VIAL SQ SCH ×3 (06:27→17:58)
[2020-09-09] MEDS ORDERED: EPOETIN ALFA-EPBX 20,000 UNIT/ML VIAL SQ ONE (08:00)
[2020-09-09] MEDS ORDERED: VANCOMYCIN 1 GM in D5W (PRE-DOCKED) 1,000 MG/250 ML IVPB ONE (08:00)
[2020-09-09 08:49] LABS: HEMOGLOBIN 7.9 GM/dL (11.7-16.9); MCH 28.4 pg (25.7-33.7); MCHC 32.8 g/dl (32.0-35.9); MEAN CELL VOLUME 86.7 fl (80-96); PLATELET COUNT 386 K/MM3 (134-434); RBC 2.77 M/mm3 (4.00-5.60); RDW 17.1 % (11.9-15.9); WHITE BLOOD COUNT 9.8 K/mm3 (4.0-10.0)
[2020-09-09 09:20] LABS: BLOOD UREA NITROGEN 51.6 mg/dL (7-18); CALCIUM 7.8 mg/dL (8.5-10.1)
[2020-09-09 09:24] LABS: PHOSPHOROUS 2.7 mg/dL (2.5-4.9)
[2020-09-09] MEDS: ASPIRIN COATED 81 MG TABLET.EC PO SCH (11:10)
[2020-09-09] MEDS: LABETALOL HCL 200 MG TABLET (FP) PO SCH ×2 (11:11→21:51)
[2020-09-09] MEDS: NIFEdipine E.R 60 MG TABLET PO SCH (11:11)
[2020-09-09] MEDS: TAMSULOSIN HCL 0.4 MG CAP PO SCH (11:11)
[2020-09-09 19:52] VITALS: BMI 28.6
[2020-09-09] MEDS: guaiFENesin/D-METHORPHAN HB 10 ML UNIT-DOSE CUPS PO PRN (21:50)
[2020-09-09] MEDS: ATORVASTATIN CA 80 MG TABLET (FP) PO SCH (21:50)
[2020-09-09] MEDS: ACETAMINOPHEN 325 MG TABLET (FP) PO PRN (21:51)
[2020-09-10] MEDS: HEPARIN NA (PORCINE) 5,000 UNITS/ML 1ML VIAL SQ SCH ×3 (06:50→21:43)
[2020-09-10] MEDS: INSULIN SLIDING SCALE (NOVOLOG) 1 VIAL SQ SCH ×3 (06:50→16:16)
[2020-09-10] MEDS: PANTOPRAZOLE 40 MG TABLET PO SCH (06:51)
[2020-09-10 07:56] LABS: BASO % 1.1 % (0-2.0); EOS % 2.1 % (0-4.5); HEMATOCRIT 25.6 % (35.4-49); HEMOGLOBIN 8.4 GM/dL (11.7-16.9); MCH 28.9 pg (25.7-33.7); MCHC 32.8 g/dl (32.0-35.9); MEAN CELL VOLUME 87.9 fl (80-96); MEAN PLT VOLUME 7.9 fl (7.5-11.1); MONO % 9.5 % (3.8-10.2); NEUT % 74.3 % (42.8-82.8); PLATELET COUNT 408 K/MM3 (134-434); RBC 2.91 M/mm3 (4.00-5.60); RDW 17.2 % (11.9-15.9); WHITE BLOOD COUNT 9.3 K/mm3 (4.0-10.0)
[2020-09-10 08:04] LABS: POTASSIUM 3.9 mmol/L (3.5-5.1)
[2020-09-10 08:12] LABS: CALCIUM 7.7 mg/dL (8.5-10.1)
[2020-09-10 08:13] LABS: ALBUMIN 2.2 g/dl (3.4-5.0); BLOOD UREA NITROGEN 37.6 mg/dL (7-18); MAGNESIUM 1.8 mg/dL (1.8-2.4)
[2020-09-10 08:16] LABS: CREATININE 6.1 mg/dL (0.55-1.3); PHOSPHOROUS 2.3 mg/dL (2.5-4.9)
[2020-09-10 08:17] LABS: BILIRUBIN,TOTAL 1.1 mg/dL (0.2-1); TOT PROT 6.8 g/dl (6.4-8.2)
[2020-09-10 09:43] LABS: ANISOCYTOSIS 1+; MACROCYTOSIS 1+; OVALOCYTE 1+; PLATELET ESTIMATE NORMAL
[2020-09-10] MEDS ORDERED: PT OWN MED DRAWER 7, Y5N ONE ×2 (10:32→14:48)
[2020-09-10] MEDS: LABETALOL HCL 200 MG TABLET (FP) PO SCH ×2 (10:35→21:43)
[2020-09-10] MEDS: NIFEdipine E.R 60 MG TABLET PO SCH (10:35)
[2020-09-10] MEDS: ASPIRIN COATED 81 MG TABLET.EC PO SCH (10:35)
[2020-09-10] MEDS: TAMSULOSIN HCL 0.4 MG CAP PO SCH (10:35)
[2020-09-10] MEDS ORDERED: BISACODYL 5 MG TABLET.DR (FP) PO ONE (16:00)
[2020-09-10] MEDS: COLLAGENASE CLOSTRIDIUM HIST. 30 GRAMS TUBE TP SCH (16:16)
[2020-09-10] MEDS ORDERED: PEG 3350/NA SULF BICARB CL/KCL 4000 ML SOLN.RECON PO ONE (17:00)
[2020-09-10] MEDS ORDERED: SODIUM CHLORIDE 250 ML IV PRN (19:40)
[2020-09-10] MEDS: ATORVASTATIN CA 80 MG TABLET (FP) PO SCH (21:43)
[2020-09-11] MEDS: guaiFENesin/D-METHORPHAN HB 10 ML UNIT-DOSE CUPS PO PRN (01:17)
[2020-09-11] MEDS: INSULIN SLIDING SCALE (NOVOLOG) 1 VIAL SQ SCH ×3 (06:36→17:08)
[2020-09-11] MEDS: PANTOPRAZOLE 40 MG TABLET PO SCH (06:36)
[2020-09-11] MEDS: HEPARIN NA (PORCINE) 5,000 UNITS/ML 1ML VIAL SQ SCH ×2 (06:41→17:07)
[2020-09-11 08:04] LABS: BASO % 1.1 % (0-2.0); EOS % 1.6 % (0-4.5); HEMATOCRIT 27.2 % (35.4-49); HEMOGLOBIN 8.8 GM/dL (11.7-16.9); LYMPH % 11.7 % (8-40); MCH 28.6 pg (25.7-33.7); MCHC 32.3 g/dl (32.0-35.9); MEAN CELL VOLUME 88.4 fl (80-96); MEAN PLT VOLUME 7.7 fl (7.5-11.1); MONO % 7.3 % (3.8-10.2); NEUT % 78.3 % (42.8-82.8); PLATELET COUNT 460 K/MM3 (134-434); RBC 3.08 M/mm3 (4.00-5.60); RDW 16.9 % (11.9-15.9); WHITE BLOOD COUNT 9.5 K/mm3 (4.0-10.0)
[2020-09-11 08:18] LABS: BLOOD UREA NITROGEN 45.4 mg/dL (7-18); CALCIUM 8.7 mg/dL (8.5-10.1)
[2020-09-11 08:36] LABS: CREATININE 7.9 mg/dL (0.55-1.3)
[2020-09-11] MEDS: LABETALOL HCL 200 MG TABLET (FP) PO SCH (10:23)
[2020-09-11] MEDS: NIFEdipine E.R 60 MG TABLET PO SCH (10:23)
[2020-09-11] MEDS: TAMSULOSIN HCL 0.4 MG CAP PO SCH (10:23)
[2020-09-11] MEDS: ASPIRIN COATED 81 MG TABLET.EC PO SCH (10:23)
[2020-09-11] MEDS: COLLAGENASE CLOSTRIDIUM HIST. 30 GRAMS TUBE TP SCH (10:24)
[2020-09-11 14:12] VITALS: BP 131/61; PULSE 70; TEMP 98.4
[2020-09-11] MEDS ORDERED: SODIUM CHLORIDE 250 ML IV PRN (14:26)
[2020-09-12] MEDS ORDERED: EPOETIN ALFA 10,000 UNIT/1 ML VIAL SQ ONE (08:00)
== END 2020-09-11 17:10 | disposition home or self-care (01) | DRG 871 ==
LOC: JER 14:49 → JERBED 17:53 → J4W 09-05 04:50
PROVIDERS: ADMIT Internal Medicine; ATTEND Student in an Organized Health Care Education/Training Program
PROC: 30233N1 Transfusion of Nonautologous Red Blood Cells into Peripheral Vein, Percutaneous Approach (ICD-10-PCS; 2020-09-02)
PROC: 5A1D70Z Performance of Urinary Filtration, Intermittent, Less than 6 Hours Per Day (ICD-10-PCS; 2020-09-03)
PROC: 0WP8XYZ Removal of Other Device from Chest Wall, External Approach (ICD-10-PCS; 2020-09-04)
PROC: 0DBN8ZX Excision of Sigmoid Colon, Via Natural or Artificial Opening Endoscopic, Diagnostic (ICD-10-PCS; 2020-09-11)
PROC: 0DBL8ZX Excision of Transverse Colon, Via Natural or Artificial Opening Endoscopic, Diagnostic (ICD-10-PCS; 2020-09-11)
PROC: 0DJ08ZZ Inspection of Upper Intestinal Tract, Via Natural or Artificial Opening Endoscopic (ICD-10-PCS; principal; 2020-09-11 09:00)
DX: A41.02 Sepsis due to Methicillin resistant Staphylococcus aureus (principal); J18.9 Pneumonia, unspecified organism; N18.6 End stage renal disease; I13.2 Hypertensive heart and chronic kidney disease with heart failure and with stage 5 chronic kidney disease, or end stage renal disease; I50.32 Chronic diastolic (congestive) heart failure; J90 Pleural effusion, not elsewhere classified; I25.10 Atherosclerotic heart disease of native coronary artery without angina pectoris; E11.9 Type 2 diabetes mellitus without complications; E78.5 Hyperlipidemia, unspecified; R09.02 Hypoxemia; E87.70 Fluid overload, unspecified; I73.9 Peripheral vascular disease, unspecified; E11.40 Type 2 diabetes mellitus with diabetic neuropathy, unspecified; E11.21 Type 2 diabetes mellitus with diabetic nephropathy; K44.9 Diaphragmatic hernia without obstruction or gangrene; Z95.5 Presence of coronary angioplasty implant and graft; D63.1 Anemia in chronic kidney disease; N40.0 Benign prostatic hyperplasia without lower urinary tract symptoms; E66.9 Obesity, unspecified; Z68.28 Body mass index [BMI] 28.0-28.9, adult; K64.8 Other hemorrhoids; E87.5 Hyperkalemia; N25.0 Renal osteodystrophy; K63.5 Polyp of colon; K57.30 Diverticulosis of large intestine without perforation or abscess without bleeding
CPT/HCPCS: 36415; 36430; 36511; 71045-TC-FY; 80048; 80053; 82248; 82550; 82553; 82728; 82803; 82962; 83010; 83540; 83550; 83605; 83615; 83735; 83880; 84100; 84484; 85025; 85027; 85045; 85610; 85730; 86140; 86803; 86850; 86900; 86901; 86922; 87040; 87186; 87340; 87804; 88305-TC; 93005; 93010; 93306-TC; 94761; 99285-25; C9803; G0480; J0131; J1644; P9016; U0003

== ENCOUNTER 2020-09-16 19:04 | Inpatient (IN) | payer OTHER ==
[2020-09-16] MEDS ORDERED: DEXTROSE 50%-WATER 25 GM/50 ML DISP.SYRIN ONE (19:18)
[2020-09-16 20:06] LABS: BASO % 0.8 % (0-2.0); EOS % 1.4 % (0-4.5); HEMATOCRIT 28.1 % (35.4-49); HEMOGLOBIN 9.1 GM/dL (11.7-16.9); LYMPH % 7.7 % (8-40); MCHC 32.5 g/dl (32.0-35.9); MEAN CELL VOLUME 86.2 fl (80-96); MONO % 6.5 % (3.8-10.2); NEUT % 83.6 % (42.8-82.8); PLATELET COUNT 596 K/MM3 (134-434); RBC 3.26 M/mm3 (4.00-5.60); RDW 17.3 % (11.9-15.9); WHITE BLOOD COUNT 9.2 K/mm3 (4.0-10.0)
[2020-09-16 20:12] LABS: INR 1.32 (0.83-1.09); PROTHROMBIN TIME (PATIENT) 16.1 SEC (9.7-13.0)
[2020-09-16 20:14] LABS: ACTIVATED PTT 29.5 SECONDS (25.2-36.5)
[2020-09-16 20:34] LABS: BLOOD UREA NITROGEN 30.8 mg/dL (7-18); CALCIUM 9.1 mg/dL (8.5-10.1)
[2020-09-16 20:35] LABS: MAGNESIUM 2.1 mg/dL (1.8-2.4)
[2020-09-16 20:38] LABS: CREATININE 7.1 mg/dL (0.55-1.3)
[2020-09-16 20:39] LABS: BILIRUBIN,TOTAL 0.8 mg/dL (0.2-1); TOT PROT 8.4 g/dl (6.4-8.2)
[2020-09-16 21:10] LABS: ALBUMIN 2.9 g/dl (3.4-5.0)
[2020-09-17] MEDS ORDERED: ACETAMINOPHEN 325 MG TABLET (FP) PO PRN (00:48)
[2020-09-17] MEDS ORDERED: VANCOMYCIN 1 GM in D5W (PRE-DOCKED) 1,000 MG/250 ML IVPB SCH ×2 (01:36→12:00)
[2020-09-17] MEDS ORDERED: VANCOMYCIN 1 GM in D5W (PRE-DOCKED) 1,000 MG/250 ML IVPB ONE (01:41)
[2020-09-17] MEDS ORDERED: VANCOMYCIN 1 GRAM (PRE-DOCKED) 1,000 MG/250 ML BAG IVPB ONE ×2 (03:00→03:14)
[2020-09-17 04:36] VITALS: BMI 27.8
[2020-09-17] MEDS: HEPARIN NA (PORCINE) 5,000 UNITS/ML 1ML VIAL SQ SCH ×3 (05:07→21:34)
[2020-09-17] MEDS: INSULIN SLIDING SCALE (NOVOLOG) 1 VIAL SQ SCH ×4 (06:29→21:36)
[2020-09-17] MEDS ORDERED: MAG HYDROX/AL HYDROX/SIMETH 30 ML UNIT-DOSE CUP PO ONE (08:34)
[2020-09-17 09:02] LABS: BASO % 0.9 % (0-2.0); EOS % 0.8 % (0-4.5); HEMATOCRIT 25.6 % (35.4-49); HEMOGLOBIN 8.3 GM/dL (11.7-16.9); LYMPH % 7.6 % (8-40); MCH 27.7 pg (25.7-33.7); MCHC 32.3 g/dl (32.0-35.9); MEAN CELL VOLUME 85.9 fl (80-96); MEAN PLT VOLUME 7.3 fl (7.5-11.1); MONO % 8.8 % (3.8-10.2); NEUT % 81.9 % (42.8-82.8); PLATELET COUNT 558 K/MM3 (134-434); RBC 2.98 M/mm3 (4.00-5.60); RDW 17.1 % (11.9-15.9); WHITE BLOOD COUNT 9.3 K/mm3 (4.0-10.0)
[2020-09-17 09:30] LABS: POTASSIUM 4.2 mmol/L (3.5-5.1)
[2020-09-17 09:37] LABS: ALBUMIN 2.6 g/dl (3.4-5.0); CALCIUM 8.6 mg/dL (8.5-10.1)
[2020-09-17 09:38] LABS: MAGNESIUM 2.2 mg/dL (1.8-2.4)
[2020-09-17 09:41] LABS: BILIRUBIN,TOTAL 0.7 mg/dL (0.2-1); PHOSPHOROUS 3.8 mg/dL (2.5-4.9); TOT PROT 7.5 g/dl (6.4-8.2)
[2020-09-17 09:57] LABS: CREATININE 8.4 mg/dL (0.55-1.3)
[2020-09-17] MEDS: LABETALOL HCL 200 MG TABLET (FP) PO SCH ×2 (11:13→21:34)
[2020-09-17] MEDS: LISINOPRIL 20 MG TABLET PO SCH (11:14)
[2020-09-17] MEDS: PANTOPRAZOLE 40 MG TABLET PO SCH (11:14)
[2020-09-17] MEDS: NIFEdipine E.R 60 MG TABLET PO SCH (11:14)
[2020-09-17] MEDS: ZINC SULFATE 220 MG CAPSULE (FP) PO SCH (11:17)
[2020-09-17] MEDS: FERROUS SO4 325 MG TABLET (FP) PO SCH (11:17)
[2020-09-17] MEDS: TAMSULOSIN HCL 0.4 MG CAP PO SCH (11:17)
[2020-09-17] MEDS: ASPIRIN COATED 81 MG TABLET.EC PO SCH (11:17)
[2020-09-17] MEDS: ASCORBIC ACID 500 MG TABLET (FP) PO SCH ×2 (11:18→21:34)
[2020-09-17] MEDS: ONDANSETRON 4 MG/2 ML VIAL IVPUSH PRN (13:37)
[2020-09-17] MEDS: ATORVASTATIN CA 80 MG TABLET (FP) PO SCH (21:34)
[2020-09-18] MEDS: ONDANSETRON 4 MG/2 ML VIAL IVPUSH PRN ×3 (01:48→11:29)
[2020-09-18] MEDS: HEPARIN NA (PORCINE) 5,000 UNITS/ML 1ML VIAL SQ SCH ×3 (05:45→21:35)
[2020-09-18] MEDS: INSULIN SLIDING SCALE (NOVOLOG) 1 VIAL SQ SCH ×4 (06:41→21:35)
[2020-09-18] MEDS: MAG HYDROX/AL HYDROX/SIMETH 30 ML UNIT-DOSE CUP PO PRN ×3 (11:28→23:47)
[2020-09-18] MEDS: TAMSULOSIN HCL 0.4 MG CAP PO SCH (11:32)
[2020-09-18] MEDS: PANTOPRAZOLE 40 MG TABLET PO SCH (11:32)
[2020-09-18] MEDS: ASCORBIC ACID 500 MG TABLET (FP) PO SCH ×2 (11:32→21:34)
[2020-09-18] MEDS: LABETALOL HCL 200 MG TABLET (FP) PO SCH ×2 (11:33→21:34)
[2020-09-18] MEDS: FERROUS SO4 325 MG TABLET (FP) PO SCH (11:33)
[2020-09-18] MEDS: LISINOPRIL 20 MG TABLET PO SCH (11:33)
[2020-09-18] MEDS: ZINC SULFATE 220 MG CAPSULE (FP) PO SCH (11:34)
[2020-09-18] MEDS: NIFEdipine E.R 60 MG TABLET PO SCH (11:35)
[2020-09-18] MEDS: ASPIRIN COATED 81 MG TABLET.EC PO SCH (11:38)
[2020-09-18] MEDS ORDERED: SODIUM CHLORIDE 250 ML IV PRN (18:42)
[2020-09-18] MEDS: ATORVASTATIN CA 80 MG TABLET (FP) PO SCH (21:34)
[2020-09-19] MEDS ORDERED: EPOETIN ALFA 10,000 UNIT/1 ML VIAL IVPUSH ONE (06:00)
[2020-09-19] MEDS: INSULIN SLIDING SCALE (NOVOLOG) 1 VIAL SQ SCH ×4 (06:09→21:35)
[2020-09-19] MEDS: HEPARIN NA (PORCINE) 5,000 UNITS/ML 1ML VIAL SQ SCH ×3 (06:09→21:35)
[2020-09-19] MEDS: ZINC SULFATE 220 MG CAPSULE (FP) PO SCH (09:49)
[2020-09-19] MEDS: LABETALOL HCL 200 MG TABLET (FP) PO SCH ×2 (09:49→21:35)
[2020-09-19] MEDS: MAG HYDROX/AL HYDROX/SIMETH 30 ML UNIT-DOSE CUP PO PRN (09:58)
[2020-09-19] MEDS: TAMSULOSIN HCL 0.4 MG CAP PO SCH (10:00)
[2020-09-19] MEDS: ASCORBIC ACID 500 MG TABLET (FP) PO SCH ×2 (10:00→21:35)
[2020-09-19] MEDS: LISINOPRIL 20 MG TABLET PO SCH (10:00)
[2020-09-19] MEDS: FERROUS SO4 325 MG TABLET (FP) PO SCH (10:00)
[2020-09-19] MEDS: NIFEdipine E.R 60 MG TABLET PO SCH (10:00)
[2020-09-19] MEDS: PANTOPRAZOLE 40 MG TABLET PO SCH (10:01)
[2020-09-19 11:18] LABS: POTASSIUM 4.9 mmol/L (3.5-5.1)
[2020-09-19 11:25] LABS: CALCIUM 8.1 mg/dL (8.5-10.1)
[2020-09-19 11:26] LABS: BLOOD UREA NITROGEN 59.2 mg/dL (7-18)
[2020-09-19 12:15] LABS: CREATININE 11.4 mg/dL (0.55-1.3)
[2020-09-19 17:03] LABS: HEMATOCRIT 25.1 % (35.4-49); HEMOGLOBIN 7.9 GM/dL (11.7-16.9); MCH 27.4 pg (25.7-33.7); MCHC 31.6 g/dl (32.0-35.9); MEAN CELL VOLUME 86.8 fl (80-96); MEAN PLT VOLUME 7.2 fl (7.5-11.1); PLATELET COUNT 557 K/MM3 (134-434); RBC 2.89 M/mm3 (4.00-5.60); RDW 17.2 % (11.9-15.9)
[2020-09-19 18:16] LABS: BF WBC & OTHER NUCLEATED CELLS 440 /mm3
[2020-09-19 20:58] LABS: BODY FLUID MACROPHAGES 16 %; BODY FLUID MESOTHELIAL 1 %; BODY FLUID MONOCYTE 3 %
[2020-09-19] MEDS ORDERED: INSULIN (NOVOLOG) ASPART 100 UNITS/ML 10ML VIAL ONE (21:08)
[2020-09-19] MEDS: ATORVASTATIN CA 80 MG TABLET (FP) PO SCH (21:35)
[2020-09-19] MEDS: VANCOMYCIN 1 GRAM (PRE-DOCKED) 1,000 MG/250 ML BAG IVPB SCH (21:40)
[2020-09-20] MEDS: HEPARIN NA (PORCINE) 5,000 UNITS/ML 1ML VIAL SQ SCH ×2 (06:32→13:24)
[2020-09-20] MEDS: INSULIN SLIDING SCALE (NOVOLOG) 1 VIAL SQ SCH ×3 (06:54→16:26)
[2020-09-20 07:35] LABS: BASO % 1.3 % (0-2.0); EOS % 1.6 % (0-4.5); HEMATOCRIT 25.6 % (35.4-49); HEMOGLOBIN 8.1 GM/dL (11.7-16.9); LYMPH % 13.6 % (8-40); MCH 27.7 pg (25.7-33.7); MCHC 31.6 g/dl (32.0-35.9); MEAN CELL VOLUME 87.8 fl (80-96); MEAN PLT VOLUME 7.1 fl (7.5-11.1); MONO % 8.9 % (3.8-10.2); NEUT % 74.6 % (42.8-82.8); PLATELET COUNT 527 K/MM3 (134-434); RBC 2.92 M/mm3 (4.00-5.60); WHITE BLOOD COUNT 10.3 K/mm3 (4.0-10.0)
[2020-09-20 07:52] LABS: POTASSIUM 4.3 mmol/L (3.5-5.1)
[2020-09-20 07:55] LABS: ALBUMIN 2.4 g/dl (3.4-5.0); BLOOD UREA NITROGEN 35.5 mg/dL (7-18); MAGNESIUM 2.4 mg/dL (1.8-2.4)
[2020-09-20 07:59] LABS: CREATININE 7.1 mg/dL (0.55-1.3)
[2020-09-20 08:00] LABS: BILIRUBIN,TOTAL 0.6 mg/dL (0.2-1); TOT PROT 7.3 g/dl (6.4-8.2)
[2020-09-20] MEDS ORDERED: ASPIRIN COATED 81 MG TABLET.EC PO SCH (11:00)
[2020-09-20] MEDS: LISINOPRIL 20 MG TABLET PO SCH (11:16)
[2020-09-20] MEDS: ZINC SULFATE 220 MG CAPSULE (FP) PO SCH (11:17)
[2020-09-20] MEDS: PANTOPRAZOLE 40 MG TABLET PO SCH (11:17)
[2020-09-20] MEDS: TAMSULOSIN HCL 0.4 MG CAP PO SCH (11:17)
[2020-09-20] MEDS: FERROUS SO4 325 MG TABLET (FP) PO SCH (11:17)
[2020-09-20] MEDS: NIFEdipine E.R 60 MG TABLET PO SCH (11:17)
[2020-09-20] MEDS: ASCORBIC ACID 500 MG TABLET (FP) PO SCH (11:17)
[2020-09-20] MEDS: LABETALOL HCL 200 MG TABLET (FP) PO SCH (11:17)
[2020-09-20] MEDS ORDERED: SODIUM CHLORIDE 250 ML IV PRN ×2 (13:17→13:18)
[2020-09-20] MEDS: VANCOMYCIN 1 GRAM (PRE-DOCKED) 1,000 MG/250 ML BAG IVPB SCH (16:25)
[2020-09-20 20:51] VITALS: BP 133/62; PULSE 79; TEMP 98.6
[2020-09-21] MEDS ORDERED: EPOETIN ALFA 10,000 UNIT/1 ML VIAL IVPUSH ONE (08:00)
[2020-09-21] MEDS ORDERED: VANCOMYCIN 1 GM PREMIX - 200 ML IVPB ONE (10:00)
[2020-09-21 14:07] LABS: BODY FLUID ALBUMIN 2.2 g/dL (Not Estab.)
== END 2020-09-20 21:12 | disposition home or self-care (01) | DRG 314 ==
LOC: JER 19:04 → JERBED 23:48 → J7W 09-17 04:04
PROVIDERS: ADMIT Internal Medicine; ATTEND Nurse Practitioner Family
PROC: 0W9B3ZX Drainage of Left Pleural Cavity, Percutaneous Approach, Diagnostic (ICD-10-PCS; principal; 2020-09-19)
PROC: 5A1D70Z Performance of Urinary Filtration, Intermittent, Less than 6 Hours Per Day (ICD-10-PCS; 2020-09-19)
DX: T82.7XXA Infection and inflammatory reaction due to other cardiac and vascular devices, implants and grafts, initial encounter (principal); A41.02 Sepsis due to Methicillin resistant Staphylococcus aureus; N18.6 End stage renal disease; I87.333 Chronic venous hypertension (idiopathic) with ulcer and inflammation of bilateral lower extremity; L97.929 Non-pressure chronic ulcer of unspecified part of left lower leg with unspecified severity; J90 Pleural effusion, not elsewhere classified; I50.32 Chronic diastolic (congestive) heart failure; I13.2 Hypertensive heart and chronic kidney disease with heart failure and with stage 5 chronic kidney disease, or end stage renal disease; R68.83 Chills (without fever); Y83.9 Surgical procedure, unspecified as the cause of abnormal reaction of the patient, or of later complication, without mention of misadventure at the time of the procedure; D63.1 Anemia in chronic kidney disease; I25.10 Atherosclerotic heart disease of native coronary artery without angina pectoris; E66.9 Obesity, unspecified; Z68.27 Body mass index [BMI] 27.0-27.9, adult; E78.5 Hyperlipidemia, unspecified; E11.22 Type 2 diabetes mellitus with diabetic chronic kidney disease; Z95.5 Presence of coronary angioplasty implant and graft; E11.21 Type 2 diabetes mellitus with diabetic nephropathy; K21.9 Gastro-esophageal reflux disease without esophagitis; E11.649 Type 2 diabetes mellitus with hypoglycemia without coma; Z99.2 Dependence on renal dialysis; I73.9 Peripheral vascular disease, unspecified; F20.9 Schizophrenia, unspecified
CPT/HCPCS: 36415; 71045-TC-FY; 71250-TC; 76942; 80048; 80053; 82042; 82150; 82465; 82550; 82553; 82945; 82962; 83735; 83986; 84100; 84157; 84484; 85025; 85027; 85610; 85730; 87040; 87070; 87075; 87102; 87116; 87205; 87206; 87210; 93005; 93010; 93306-TC; 99285-25; C9803; J0885; J1644; U0003

== ENCOUNTER 2020-09-30 18:57 | Inpatient (IN) | payer OTHER ==
[2020-09-30 19:20] VITALS: BMI 30.9
[2020-09-30 20:48] LABS: VENOUS BASE EXCESS -0.5 mmol/L (-2-2); VENOUS PCO2 41.1 mmHg (38-52); VENOUS PH 7.392 (7.310-7.410)
[2020-09-30 20:55] LABS: BASO % 1.1 % (0-2.0); EOS % 2.9 % (0-4.5); HEMATOCRIT 24.2 % (35.4-49); HEMOGLOBIN 7.6 GM/dL (11.7-16.9); LYMPH % 12.4 % (8-40); MCH 27.8 pg (25.7-33.7); MCHC 31.6 g/dl (32.0-35.9); MEAN CELL VOLUME 87.9 fl (80-96); MEAN PLT VOLUME 7.1 fl (7.5-11.1); MONO % 9.3 % (3.8-10.2); NEUT % 74.3 % (42.8-82.8); PLATELET COUNT 359 K/MM3 (134-434); RBC 2.75 M/mm3 (4.00-5.60); RDW 18.1 % (11.9-15.9); WHITE BLOOD COUNT 6.8 K/mm3 (4.0-10.0)
[2020-09-30 21:02] LABS: INR 1.32 (0.83-1.09); PROTHROMBIN TIME (PATIENT) 16.1 SEC (9.7-13.0)
[2020-09-30 21:05] LABS: ACTIVATED PTT 31.2 SECONDS (25.2-36.5)
[2020-09-30 21:08] LABS: POTASSIUM 3.9 mmol/L (3.5-5.1)
[2020-09-30 21:10] LABS: ALBUMIN 2.7 g/dl (3.4-5.0); BLOOD UREA NITROGEN 22.8 mg/dL (7-18); CALCIUM 8.9 mg/dL (8.5-10.1)
[2020-09-30 21:13] LABS: CREATININE 4.2 mg/dL (0.55-1.3)
[2020-09-30 21:15] LABS: TOT PROT 7.9 g/dl (6.4-8.2)
[2020-09-30 21:19] LABS: BILIRUBIN,TOTAL 0.5 mg/dL (0.2-1)
[2020-09-30] MEDS ORDERED: HEPARIN NA (PORCINE) 5,000 UNITS/ML 1ML VIAL ONE (22:29)
[2020-09-30] MEDS: HEPARIN NA (PORCINE) 5,000 UNITS/ML 1ML VIAL SQ SCH (22:43)
[2020-10-01 00:43] LABS: VENOUS BASE EXCESS 1.5 mmol/L (-2-2); VENOUS O2 SATURATION 65.9 % (70-80); VENOUS PCO2 41.9 mmHg (38-52); VENOUS PH 7.414 (7.310-7.410)
[2020-10-01] MEDS: HEPARIN NA (PORCINE) 5,000 UNITS/ML 1ML VIAL SQ SCH ×3 (06:08→21:05)
[2020-10-01] MEDS ORDERED: HEPARIN NA (PORCINE) 5,000 UNITS/ML 1ML VIAL ONE ×2 (06:09→14:16)
[2020-10-01 06:29] LABS: BASO % 1.1 % (0-2.0); EOS % 3.1 % (0-4.5); HEMATOCRIT 22.3 % (35.4-49); HEMOGLOBIN 7.3 GM/dL (11.7-16.9); LYMPH % 16.9 % (8-40); MCH 28.4 pg (25.7-33.7); MCHC 32.7 g/dl (32.0-35.9); MEAN CELL VOLUME 86.9 fl (80-96); MEAN PLT VOLUME 6.8 fl (7.5-11.1); NEUT % 69.9 % (42.8-82.8); PLATELET COUNT 306 K/MM3 (134-434); RBC 2.57 M/mm3 (4.00-5.60); RDW 17.8 % (11.9-15.9)
[2020-10-01 06:52] LABS: CALCIUM 8.2 mg/dL (8.5-10.1)
[2020-10-01 06:53] LABS: ALBUMIN 2.5 g/dl (3.4-5.0); BLOOD UREA NITROGEN 30.1 mg/dL (7-18); CO2 29 mmol/L (21-32); MAGNESIUM 1.9 mg/dL (1.8-2.4)
[2020-10-01 06:55] LABS: PHOSPHOROUS 3.5 mg/dL (2.5-4.9)
[2020-10-01 06:56] LABS: CREATININE 5.1 mg/dL (0.55-1.3); SGOT/AST 20 U/L (15-37); SGPT/ALT 38 U/L (13-61)
[2020-10-01 06:57] LABS: BILIRUBIN,TOTAL 0.6 mg/dL (0.2-1); TOT PROT 7.3 g/dl (6.4-8.2)
[2020-10-01 06:58] LABS: ALK PHOS 107 U/L (45-117)
[2020-10-01 07:24] LABS: GLUCOSE,RANDOM 41 mg/dL (74-106)
[2020-10-01 07:27] LABS: CHLORIDE 101 mmol/L (98-107); SODIUM 136 mmol/L (136-145)
[2020-10-01 07:37] LABS: ANION GAP 7 MMOL/L (8-16); N-TERMINAL BNP 38141.6 pg/ml (5-125)
[2020-10-01] MEDS ORDERED: DEXTROSE 50%-WATER - 25 GM/50 ML VIAL IVPUSH ONE (07:41)
[2020-10-01] MEDS ORDERED: DEXTROSE 50%-WATER 25 GM/50 ML DISP.SYRIN ONE (07:45)
[2020-10-01] MEDS ORDERED: IRON SUCROSE INJECTION 300 MG in SODIUM CHLORIDE 235 ML IVPB ONE (10:00)
[2020-10-01] MEDS ORDERED: PATIENT'S OWN MEDICATION (NON-FORMULARY) (Becaplermin [Regranex] 15 GM Gel..Gram.) TP SCH (12:00)
[2020-10-01] MEDS ORDERED: LABETALOL HCL 100 MG TABLET (FP) ONE (12:58)
[2020-10-01] MEDS ORDERED: PANTOPRAZOLE 40 MG TABLET ONE (12:58)
[2020-10-01] MEDS ORDERED: LISINOPRIL 20 MG TABLET ONE (12:58)
[2020-10-01] MEDS ORDERED: NIFEdipine E.R. 30 MG TABLET ONE (12:59)
[2020-10-01] MEDS: LISINOPRIL 20 MG TABLET PO SCH (13:12)
[2020-10-01] MEDS: PANTOPRAZOLE 40 MG TABLET PO SCH (13:12)
[2020-10-01] MEDS: NIFEdipine E.R 60 MG TABLET PO SCH (13:12)
[2020-10-01] MEDS: LABETALOL HCL 200 MG TABLET (FP) PO SCH ×2 (13:12→21:05)
[2020-10-01] MEDS: ATORVASTATIN CA 80 MG TABLET (FP) PO SCH (21:05)
[2020-10-02] MEDS ORDERED: guaiFENesin 200 MG/10 ML 10 ML UNIT-DOSE CUPS PO ONE (00:48)
[2020-10-02] MEDS: HEPARIN NA (PORCINE) 5,000 UNITS/ML 1ML VIAL SQ SCH ×3 (06:20→22:16)
[2020-10-02 08:34] LABS: HEMATOCRIT 20.5 % (35.4-49); MCH 28.6 pg (25.7-33.7); MCHC 32.8 g/dl (32.0-35.9); MEAN CELL VOLUME 87.2 fl (80-96); MEAN PLT VOLUME 7.1 fl (7.5-11.1); PLATELET COUNT 303 K/MM3 (134-434); RBC 2.35 M/mm3 (4.00-5.60); RDW 18.1 % (11.9-15.9); WHITE BLOOD COUNT 7.2 K/mm3 (4.0-10.0)
[2020-10-02 08:43] LABS: HEMOGLOBIN 6.7 GM/dL (11.7-16.9)
[2020-10-02 08:58] LABS: POTASSIUM 4.6 mmol/L (3.5-5.1)
[2020-10-02 09:14] LABS: BLOOD UREA NITROGEN 45.8 mg/dL (7-18); CALCIUM 8.3 mg/dL (8.5-10.1)
[2020-10-02] MEDS: NIFEdipine E.R 60 MG TABLET PO SCH (09:25)
[2020-10-02] MEDS: PANTOPRAZOLE 40 MG TABLET PO SCH (09:25)
[2020-10-02] MEDS: ASPIRIN COATED 81 MG TABLET.EC PO SCH (09:25)
[2020-10-02] MEDS: LABETALOL HCL 200 MG TABLET (FP) PO SCH ×2 (09:25→22:17)
[2020-10-02] MEDS: LISINOPRIL 20 MG TABLET PO SCH (09:25)
[2020-10-02] MEDS: TAMSULOSIN HCL 0.4 MG CAP PO SCH (09:25)
[2020-10-02] MEDS ORDERED: SODIUM CHLORIDE 250 ML IV PRN (09:40)
[2020-10-02] MEDS ORDERED: IRON SUCROSE INJECTION 500 MG in SODIUM CHLORIDE 225 ML IVPB ONE (10:00)
[2020-10-02] MEDS ORDERED: FERROUS SO4 325 MG TABLET (FP) PO SCH (10:00)
[2020-10-02] MEDS ORDERED: EPOETIN ALFA-EPBX 20,000 UNIT/ML VIAL IVPUSH ONE (10:30)
[2020-10-02 16:47] LABS: HEMATOCRIT 27.3 % (35.4-49); HEMOGLOBIN 8.8 GM/dL (11.7-16.9); MCH 28.1 pg (25.7-33.7); MCHC 32.3 g/dl (32.0-35.9); MEAN CELL VOLUME 87.1 fl (80-96); MEAN PLT VOLUME 7.4 fl (7.5-11.1); PLATELET COUNT 329 K/MM3 (134-434); RBC 3.14 M/mm3 (4.00-5.60); RDW 16.9 % (11.9-15.9); WHITE BLOOD COUNT 9.7 K/mm3 (4.0-10.0)
[2020-10-02] MEDS ORDERED: VANCOMYCIN 1 GM in D5W (PRE-DOCKED) 1,000 MG/250 ML IVPB ONE (17:47)
[2020-10-02] MEDS: ATORVASTATIN CA 80 MG TABLET (FP) PO SCH (22:17)
[2020-10-03] MEDS ORDERED: VANCOMYCIN 1 GM in D5W (PRE-DOCKED) 1,000 MG/250 ML IVPB ONE (02:00)
[2020-10-03] MEDS ORDERED: guaiFENesin 200 MG/10 ML 10 ML UNIT-DOSE CUPS PO ONE (02:30)
[2020-10-03] MEDS: HEPARIN NA (PORCINE) 5,000 UNITS/ML 1ML VIAL SQ SCH ×3 (06:25→22:11)
[2020-10-03 08:19] LABS: HEMATOCRIT 25.7 % (35.4-49); HEMOGLOBIN 8.7 GM/dL (11.7-16.9); MCH 29.1 pg (25.7-33.7); MEAN CELL VOLUME 85.6 fl (80-96); MEAN PLT VOLUME 6.9 fl (7.5-11.1); PLATELET COUNT 323 K/MM3 (134-434); WHITE BLOOD COUNT 8.8 K/mm3 (4.0-10.0)
[2020-10-03 08:34] LABS: POTASSIUM 3.9 mmol/L (3.5-5.1)
[2020-10-03 08:37] LABS: ALBUMIN 2.5 g/dl (3.4-5.0); BLOOD UREA NITROGEN 35.9 mg/dL (7-18); CALCIUM 8.2 mg/dL (8.5-10.1)
[2020-10-03 08:41] LABS: CREATININE 5.6 mg/dL (0.55-1.3)
[2020-10-03 08:42] LABS: BILIRUBIN,TOTAL 0.6 mg/dL (0.2-1)
[2020-10-03] MEDS: LISINOPRIL 20 MG TABLET PO SCH (09:59)
[2020-10-03] MEDS: TAMSULOSIN HCL 0.4 MG CAP PO SCH (09:59)
[2020-10-03] MEDS: ASPIRIN COATED 81 MG TABLET.EC PO SCH (09:59)
[2020-10-03] MEDS: LABETALOL HCL 200 MG TABLET (FP) PO SCH ×2 (09:59→22:11)
[2020-10-03] MEDS: PANTOPRAZOLE 40 MG TABLET PO SCH (09:59)
[2020-10-03] MEDS: NIFEdipine E.R 60 MG TABLET PO SCH (09:59)
[2020-10-03] MEDS ORDERED: IRON SUCROSE INJECTION 500 MG in SODIUM CHLORIDE 225 ML IVPB ONE (10:00)
[2020-10-03] MEDS: ATORVASTATIN CA 80 MG TABLET (FP) PO SCH (22:11)
[2020-10-04] MEDS ORDERED: BENZOCAINE/MENTH/CETYLPYRD CL 1 EACH LOZENGE MM PRN (03:09)
[2020-10-04] MEDS ORDERED: guaiFENesin/D-METHORPHAN HB 10 ML UNIT-DOSE CUPS PO ONE (03:09)
[2020-10-04] MEDS: HEPARIN NA (PORCINE) 5,000 UNITS/ML 1ML VIAL SQ SCH ×2 (06:21→18:33)
[2020-10-04 08:08] LABS: HEMATOCRIT 26.3 % (35.4-49); HEMOGLOBIN 8.7 GM/dL (11.7-16.9); MCH 28.6 pg (25.7-33.7); MCHC 33.1 g/dl (32.0-35.9); MEAN CELL VOLUME 86.4 fl (80-96); MEAN PLT VOLUME 7.2 fl (7.5-11.1); PLATELET COUNT 325 K/MM3 (134-434); RBC 3.04 M/mm3 (4.00-5.60); RDW 17.5 % (11.9-15.9); WHITE BLOOD COUNT 8.6 K/mm3 (4.0-10.0)
[2020-10-04 08:10] LABS: POTASSIUM 4.1 mmol/L (3.5-5.1)
[2020-10-04 09:01] LABS: CALCIUM 8.3 mg/dL (8.5-10.1)
[2020-10-04 09:02] LABS: BLOOD UREA NITROGEN 49.7 mg/dL (7-18)
[2020-10-04 09:05] LABS: CREATININE 7.1 mg/dL (0.55-1.3)
[2020-10-04] MEDS: LISINOPRIL 20 MG TABLET PO SCH (09:54)
[2020-10-04] MEDS: TAMSULOSIN HCL 0.4 MG CAP PO SCH (09:54)
[2020-10-04] MEDS: LABETALOL HCL 200 MG TABLET (FP) PO SCH (09:54)
[2020-10-04] MEDS: PANTOPRAZOLE 40 MG TABLET PO SCH (09:54)
[2020-10-04] MEDS: ASPIRIN COATED 81 MG TABLET.EC PO SCH (09:54)
[2020-10-04] MEDS: NIFEdipine E.R 60 MG TABLET PO SCH (09:56)
[2020-10-04] MEDS ORDERED: SODIUM CHLORIDE 250 ML IV PRN (13:07)
[2020-10-04] MEDS ORDERED: EPOETIN ALFA 10,000 UNIT/1 ML VIAL SQ ONE (13:15)
[2020-10-04] MEDS ORDERED: VANCOMYCIN 1 GRAM (PRE-DOCKED) 1,000 MG/250 ML BAG IVPB ONE (14:00)
[2020-10-04] MEDS ORDERED: VANCOMYCIN 500 MG in DEXTROSE 5%-WATER 100 ML IVPB ONE (17:26)
[2020-10-04 18:44] VITALS: BP 142/59; PULSE 66; TEMP 99.1
== END 2020-10-04 18:35 | disposition home or self-care (01) | DRG 291 ==
LOC: JER 18:57 → JERBED 22:05 → J6WEST-2 10-01 15:08
PROVIDERS: ADMIT Internal Medicine; ATTEND Internal Medicine
PROC: 30233N1 Transfusion of Nonautologous Red Blood Cells into Peripheral Vein, Percutaneous Approach (ICD-10-PCS; principal; 2020-10-02)
PROC: 5A1D70Z Performance of Urinary Filtration, Intermittent, Less than 6 Hours Per Day (ICD-10-PCS; 2020-10-04)
DX: I13.2 Hypertensive heart and chronic kidney disease with heart failure and with stage 5 chronic kidney disease, or end stage renal disease (principal); N18.6 End stage renal disease; I38 Endocarditis, valve unspecified; I50.32 Chronic diastolic (congestive) heart failure; D63.1 Anemia in chronic kidney disease; R68.83 Chills (without fever); R53.1 Weakness; I25.10 Atherosclerotic heart disease of native coronary artery without angina pectoris; Z99.2 Dependence on renal dialysis; E78.5 Hyperlipidemia, unspecified; Z86.73 Personal history of transient ischemic attack (TIA), and cerebral infarction without residual deficits; B95.62 Methicillin resistant Staphylococcus aureus infection as the cause of diseases classified elsewhere; E11.22 Type 2 diabetes mellitus with diabetic chronic kidney disease; E11.51 Type 2 diabetes mellitus with diabetic peripheral angiopathy without gangrene; N25.0 Renal osteodystrophy; Z95.5 Presence of coronary angioplasty implant and graft; E66.9 Obesity, unspecified; Z68.31 Body mass index [BMI] 31.0-31.9, adult; E11.649 Type 2 diabetes mellitus with hypoglycemia without coma
CPT/HCPCS: 36415; 36430; 71045-TC-FY; 80048; 80053; 82550; 82553; 82728; 82803; 82962; 83540; 83550; 83605; 83735; 83880; 84100; 84443; 84484; 85025; 85027; 85610; 85730; 86803; 86850; 86900; 86901; 86922; 87040; 87340; 87804; 93005; 93010; 93306-TC; 97116-GP; 97161-GP; 99285-25; C9803; G0480; J0885; J1644; J1756; P9058; U0003; U0005

== ENCOUNTER 2020-10-28 14:23 | Inpatient (IN) | payer OTHER ==
[2020-10-28] MEDS ORDERED: ACETAMINOPHEN 500 MG TABLET (FP) PO ONE (15:36)
[2020-10-28] MEDS ORDERED: ACETAMINOPHEN 500 MG TABLET (FP) ONE (15:56)
[2020-10-28 16:12] LABS: BASO % 1.3 % (0-2.0); EOS % 2.6 % (0-4.5); HEMATOCRIT 30.6 % (35.4-49); HEMOGLOBIN 9.7 GM/dL (11.7-16.9); LYMPH % 10.7 % (8-40); MCH 27.7 pg (25.7-33.7); MCHC 31.6 g/dl (32.0-35.9); MEAN CELL VOLUME 87.8 fl (80-96); MEAN PLT VOLUME 7.4 fl (7.5-11.1); MONO % 9.1 % (3.8-10.2); NEUT % 76.3 % (42.8-82.8); PLATELET COUNT 331 K/MM3 (134-434); RBC 3.48 M/mm3 (4.00-5.60); RDW 18.1 % (11.9-15.9); WHITE BLOOD COUNT 6.9 K/mm3 (4.0-10.0)
[2020-10-28 16:17] LABS: INR 1.38 (0.83-1.09); PROTHROMBIN TIME (PATIENT) 16.8 SEC (9.7-13.0)
[2020-10-28] MEDS ORDERED: VANCOMYCIN/WATER 1,250 MG/250 ML BAG IVPB ONE ×2 (16:19→17:05)
[2020-10-28 16:20] LABS: ACTIVATED PTT 29.9 SECONDS (25.2-36.5)
[2020-10-28] MEDS ORDERED: PIPERACILLIN/TAZOB 2.25 GM 2.25 GM in DEXTROSE 5%-WATER - 50 ML IVPB ONE ×2 (16:21→16:59)
[2020-10-28 16:26] LABS: CALCIUM 8.7 mg/dL (8.5-10.1)
[2020-10-28] MEDS ORDERED: PIPERACILLIN/TAZOB 2.25 GM 2.25 GM/50 ML BAG IVPB ONE (16:26)
[2020-10-28 16:27] LABS: ALBUMIN 2.9 g/dl (3.4-5.0); BLOOD UREA NITROGEN 39.8 mg/dL (7-18); MAGNESIUM 2.2 mg/dL (1.8-2.4)
[2020-10-28 16:30] LABS: CREATININE 6.9 mg/dL (0.55-1.3); PHOSPHOROUS 3.8 mg/dL (2.5-4.9)
[2020-10-28 16:31] LABS: BILIRUBIN,TOTAL 0.5 mg/dL (0.2-1)
[2020-10-28 16:32] LABS: TOT PROT 7.7 g/dl (6.4-8.2)
[2020-10-28] MEDS ORDERED: SODIUM CHLORIDE 250 ML IV PRN (16:43)
[2020-10-28] MEDS ORDERED: TAMSULOSIN HCL 0.4 MG CAP PO ONE (16:52)
[2020-10-28 17:10] LABS: N-TERMINAL BNP 53813.2 pg/ml (5-125)
[2020-10-28] MEDS ORDERED: TAMSULOSIN HCL 0.4 MG CAP ONE (17:30)
[2020-10-28] MEDS ORDERED: INSULIN SLIDING SCALE (NOVOLOG) 1 VIAL SQ SCH ×2 (22:00)
[2020-10-28] MEDS: LABETALOL HCL 200 MG TABLET (FP) PO SCH (23:00)
[2020-10-28] MEDS: HEPARIN NA (PORCINE) 5,000 UNITS/ML 1ML VIAL IVPUSH SCH (23:00)
[2020-10-28] MEDS: INSULIN SLIDING SCALE (NOVOLOG) 1 VIAL SQ SCH (23:31)
[2020-10-28 23:59] VITALS: BMI 28.6
[2020-10-29] MEDS ORDERED: PIPERACILLIN/TAZOBACTAM 2.25 GM VIAL IVPB ONE ×3 (01:35→16:56)
[2020-10-29] MEDS ORDERED: DEXTROSE 5%-WATER - 50 ML IVPB ONE ×3 (01:35→16:56)
[2020-10-29] MEDS: PIPERACILLIN/TAZOB 2.25 GM 2.25 GM in DEXTROSE 5%-WATER - 50 ML IVPB SCH ×3 (02:27→17:04)
[2020-10-29] MEDS: HEPARIN NA (PORCINE) 5,000 UNITS/ML 1ML VIAL IVPUSH SCH ×3 (06:09→22:27)
[2020-10-29] MEDS: INSULIN SLIDING SCALE (NOVOLOG) 1 VIAL SQ SCH ×4 (06:10→22:27)
[2020-10-29] MEDS ORDERED: CALCIUM CARBONATE 650 MG TABLET PO ONE (08:30)
[2020-10-29] MEDS ORDERED: PT OWN MED DRAWER 7, Y5N ONE ×2 (08:37→10:22)
[2020-10-29] MEDS ORDERED: CALCIUM CARBONATE 650 MG TABLET PO SCH (10:00)
[2020-10-29] MEDS: PANTOPRAZOLE 40 MG TABLET PO SCH (10:26)
[2020-10-29] MEDS: ASPIRIN 81 MG CHEWABLE TABLETS PO SCH (10:26)
[2020-10-29] MEDS: ZINC SULFATE 220 MG CAPSULE (FP) PO SCH (10:27)
[2020-10-29] MEDS: LISINOPRIL 20 MG TABLET PO SCH (10:27)
[2020-10-29] MEDS: LABETALOL HCL 200 MG TABLET (FP) PO SCH ×2 (10:27→22:27)
[2020-10-29] MEDS: NIFEdipine E.R 60 MG TABLET PO SCH (10:27)
[2020-10-29] MEDS: FERROUS SO4 325 MG TABLET (FP) PO SCH (10:27)
[2020-10-30] MEDS ORDERED: DEXTROSE 5%-WATER - 50 ML IVPB ONE ×3 (00:37→18:51)
[2020-10-30] MEDS ORDERED: PIPERACILLIN/TAZOBACTAM 2.25 GM VIAL IVPB ONE ×3 (00:37→18:51)
[2020-10-30] MEDS: PIPERACILLIN/TAZOB 2.25 GM 2.25 GM in DEXTROSE 5%-WATER - 50 ML IVPB SCH ×3 (01:12→18:58)
[2020-10-30] MEDS ORDERED: BENZOCAINE/MENTH/CETYLPYRD CL 1 EACH LOZENGE MM PRN (05:37)
[2020-10-30] MEDS: INSULIN SLIDING SCALE (NOVOLOG) 1 VIAL SQ SCH ×4 (06:03→21:35)
[2020-10-30] MEDS: HEPARIN NA (PORCINE) 5,000 UNITS/ML 1ML VIAL IVPUSH SCH (06:03)
[2020-10-30] MEDS: FERROUS SO4 325 MG TABLET (FP) PO SCH (10:38)
[2020-10-30] MEDS: PANTOPRAZOLE 40 MG TABLET PO SCH (10:38)
[2020-10-30] MEDS: ZINC SULFATE 220 MG CAPSULE (FP) PO SCH (10:38)
[2020-10-30] MEDS: LISINOPRIL 20 MG TABLET PO SCH (10:38)
[2020-10-30] MEDS: LABETALOL HCL 200 MG TABLET (FP) PO SCH ×2 (10:39→21:33)
[2020-10-30] MEDS: ASPIRIN 81 MG CHEWABLE TABLETS PO SCH (10:39)
[2020-10-30] MEDS: NIFEdipine E.R 60 MG TABLET PO SCH (10:39)
[2020-10-30 11:51] LABS: BASO % 1.5 % (0-2.0); EOS % 3.5 % (0-4.5); HEMATOCRIT 26.9 % (35.4-49); HEMOGLOBIN 8.7 GM/dL (11.7-16.9); LYMPH % 15.1 % (8-40); MCH 28.1 pg (25.7-33.7); MCHC 32.4 g/dl (32.0-35.9); MEAN CELL VOLUME 86.6 fl (80-96); MEAN PLT VOLUME 6.8 fl (7.5-11.1); MONO % 8.8 % (3.8-10.2); NEUT % 71.1 % (42.8-82.8); PLATELET COUNT 233 K/MM3 (134-434); RDW 17.6 % (11.9-15.9); WHITE BLOOD COUNT 5.6 K/mm3 (4.0-10.0)
[2020-10-30 12:13] LABS: ALBUMIN 2.6 g/dl (3.4-5.0); CALCIUM 8.1 mg/dL (8.5-10.1)
[2020-10-30 12:14] LABS: BLOOD UREA NITROGEN 45.5 mg/dL (7-18)
[2020-10-30 12:17] LABS: CREATININE 7.1 mg/dL (0.55-1.3)
[2020-10-30 12:18] LABS: BILIRUBIN,TOTAL 0.8 mg/dL (0.2-1); TOT PROT 6.8 g/dl (6.4-8.2)
[2020-10-30] MEDS ORDERED: SODIUM CHLORIDE 250 ML IV PRN (12:40)
[2020-10-30] MEDS: HEPARIN NA (PORCINE) 5,000 UNITS/ML 1ML VIAL SQ SCH ×2 (13:19→21:34)
[2020-10-30] MEDS ORDERED: INSULIN (NOVOLOG) ASPART 100 UNITS/ML 10ML VIAL ONE (20:59)
[2020-10-30] MEDS ORDERED: guaiFENesin/D-M SUGAR-FREE/ACLHOL-FREE 5 ML UNIT DOSE PO ONE (23:45)
[2020-10-31] MEDS ORDERED: DEXTROSE 5%-WATER - 50 ML IVPB ONE ×3 (01:21→16:57)
[2020-10-31] MEDS ORDERED: PIPERACILLIN/TAZOBACTAM 2.25 GM VIAL IVPB ONE ×3 (01:21→16:57)
[2020-10-31] MEDS: PIPERACILLIN/TAZOB 2.25 GM 2.25 GM in DEXTROSE 5%-WATER - 50 ML IVPB SCH ×3 (01:32→17:22)
[2020-10-31] MEDS ORDERED: BISMUTH SUBSALICYLATE 262 MG/15 ML BTL PO ONE (05:30)
[2020-10-31] MEDS: HEPARIN NA (PORCINE) 5,000 UNITS/ML 1ML VIAL SQ SCH ×3 (06:33→21:29)
[2020-10-31] MEDS: INSULIN SLIDING SCALE (NOVOLOG) 1 VIAL SQ SCH ×4 (06:33→21:31)
[2020-10-31] MEDS: PANTOPRAZOLE 40 MG TABLET PO SCH (10:34)
[2020-10-31] MEDS: LABETALOL HCL 200 MG TABLET (FP) PO SCH ×2 (10:34→21:28)
[2020-10-31] MEDS: NIFEdipine E.R 60 MG TABLET PO SCH (10:34)
[2020-10-31] MEDS: FERROUS SO4 325 MG TABLET (FP) PO SCH (10:34)
[2020-10-31] MEDS: ASPIRIN 81 MG CHEWABLE TABLETS PO SCH (10:34)
[2020-10-31] MEDS: ZINC SULFATE 220 MG CAPSULE (FP) PO SCH (10:34)
[2020-10-31] MEDS: LISINOPRIL 20 MG TABLET PO SCH (10:35)
[2020-10-31] MEDS ORDERED: SODIUM CHLORIDE 250 ML IV PRN (12:22)
[2020-10-31] MEDS ORDERED: VANCOMYCIN 1 GM in D5W (PRE-DOCKED) 1,000 MG/250 ML IVPB ONE (12:30)
[2020-10-31] MEDS ORDERED: EPOETIN ALFA-EPBX 10,000 UNIT/ML VIAL IVPUSH ONE (12:30)
[2020-10-31 12:39] LABS: HEMATOCRIT 27.5 % (35.4-49); HEMOGLOBIN 8.6 GM/dL (11.7-16.9); MCH 27.2 pg (25.7-33.7); MCHC 31.3 g/dl (32.0-35.9); MEAN CELL VOLUME 86.8 fl (80-96); MEAN PLT VOLUME 7.5 fl (7.5-11.1); PLATELET COUNT 247 K/MM3 (134-434); RBC 3.17 M/mm3 (4.00-5.60); RDW 18.3 % (11.9-15.9)
[2020-10-31 13:03] LABS: CHLORIDE 102 mmol/L (98-107); SODIUM 138 mmol/L (136-145)
[2020-10-31 13:04] LABS: CALCIUM 8.7 mg/dL (8.5-10.1)
[2020-10-31 13:05] LABS: ANION GAP 9 MMOL/L (8-16); CO2 27 mmol/L (21-32); GLUCOSE,RANDOM 186 mg/dL (74-106)
[2020-10-31 13:08] LABS: PHOSPHOROUS 3.7 mg/dL (2.5-4.9)
[2020-10-31 13:11] LABS: CREATININE 8.1 mg/dL (0.55-1.3)
[2020-10-31] MEDS: ATORVASTATIN CA 80 MG TABLET (FP) PO SCH (21:28)
[2020-10-31] MEDS: guaiFENesin/D-M SUGAR-FREE/ACLHOL-FREE 5 ML UNIT DOSE PO PRN (23:01)
[2020-10-31] MEDS ORDERED: PT OWN MED DRAWER 7, Y5N ONE (23:39)
[2020-11-01] MEDS ORDERED: PIPERACILLIN/TAZOBACTAM 2.25 GM VIAL IVPB ONE ×3 (01:19→17:43)
[2020-11-01] MEDS ORDERED: DEXTROSE 5%-WATER - 50 ML IVPB ONE ×3 (01:20→17:43)
[2020-11-01] MEDS: PIPERACILLIN/TAZOB 2.25 GM 2.25 GM in DEXTROSE 5%-WATER - 50 ML IVPB SCH ×3 (01:35→17:47)
[2020-11-01] MEDS ORDERED: BISMUTH SUBSALICYLATE 262 MG/15 ML BTL PO ONE (02:19)
[2020-11-01] MEDS ORDERED: LABETALOL HCL 200 MG TABLET (FP) PO ONE (05:57)
[2020-11-01] MEDS: HEPARIN NA (PORCINE) 5,000 UNITS/ML 1ML VIAL SQ SCH ×3 (06:11→22:37)
[2020-11-01] MEDS: INSULIN SLIDING SCALE (NOVOLOG) 1 VIAL SQ SCH ×4 (06:12→22:38)
[2020-11-01 08:42] LABS: HEMATOCRIT 28.1 % (35.4-49); MCH 27.9 pg (25.7-33.7); MCHC 32.1 g/dl (32.0-35.9); MEAN CELL VOLUME 86.9 fl (80-96); PLATELET COUNT 212 K/MM3 (134-434); RBC 3.23 M/mm3 (4.00-5.60); RDW 17.6 % (11.9-15.9); WHITE BLOOD COUNT 6.4 K/mm3 (4.0-10.0)
[2020-11-01 09:05] LABS: BLOOD UREA NITROGEN 36.5 mg/dL (7-18); CALCIUM 8.3 mg/dL (8.5-10.1)
[2020-11-01 09:08] LABS: CREATININE 5.8 mg/dL (0.55-1.3)
[2020-11-01] MEDS: LABETALOL HCL 200 MG TABLET (FP) PO SCH ×2 (10:23→22:37)
[2020-11-01] MEDS ORDERED: PT OWN MED DRAWER 7, Y5N ONE (10:30)
[2020-11-01] MEDS: PANTOPRAZOLE 40 MG TABLET PO SCH (10:34)
[2020-11-01] MEDS: ZINC SULFATE 220 MG CAPSULE (FP) PO SCH (10:34)
[2020-11-01] MEDS: FERROUS SO4 325 MG TABLET (FP) PO SCH (10:34)
[2020-11-01] MEDS: LISINOPRIL 20 MG TABLET PO SCH (10:34)
[2020-11-01] MEDS: NIFEdipine E.R 60 MG TABLET PO SCH (10:34)
[2020-11-01] MEDS: ASPIRIN 81 MG CHEWABLE TABLETS PO SCH (10:34)
[2020-11-01] MEDS ORDERED: INSULIN (NOVOLOG) ASPART 100 UNITS/ML 10ML VIAL ONE (11:32)
[2020-11-01] MEDS ORDERED: SODIUM CHLORIDE 250 ML IV PRN (13:12)
[2020-11-01] MEDS: ATORVASTATIN CA 80 MG TABLET (FP) PO SCH (22:37)
[2020-11-02] MEDS ORDERED: PIPERACILLIN/TAZOBACTAM 2.25 GM VIAL IVPB ONE (02:42)
[2020-11-02] MEDS ORDERED: DEXTROSE 5%-WATER - 50 ML IVPB ONE (02:43)
[2020-11-02] MEDS: PIPERACILLIN/TAZOB 2.25 GM 2.25 GM in DEXTROSE 5%-WATER - 50 ML IVPB SCH ×2 (03:06→15:10)
[2020-11-02] MEDS: guaiFENesin/D-M SUGAR-FREE/ACLHOL-FREE 5 ML UNIT DOSE PO PRN (04:42)
[2020-11-02] MEDS: HEPARIN NA (PORCINE) 5,000 UNITS/ML 1ML VIAL SQ SCH ×2 (06:24→14:00)
[2020-11-02] MEDS: INSULIN SLIDING SCALE (NOVOLOG) 1 VIAL SQ SCH ×3 (06:24→16:45)
[2020-11-02] MEDS: PANTOPRAZOLE 40 MG TABLET PO SCH (10:34)
[2020-11-02] MEDS: ZINC SULFATE 220 MG CAPSULE (FP) PO SCH (10:34)
[2020-11-02] MEDS: ASPIRIN 81 MG CHEWABLE TABLETS PO SCH (10:34)
[2020-11-02] MEDS: LABETALOL HCL 200 MG TABLET (FP) PO SCH (10:34)
[2020-11-02] MEDS: FERROUS SO4 325 MG TABLET (FP) PO SCH (10:34)
[2020-11-02] MEDS: NIFEdipine E.R 60 MG TABLET PO SCH (10:34)
[2020-11-02] MEDS: LISINOPRIL 20 MG TABLET PO SCH (10:35)
[2020-11-02 12:35] LABS: HEMATOCRIT 28.1 % (35.4-49); HEMOGLOBIN 9.1 GM/dL (11.7-16.9); MCH 27.9 pg (25.7-33.7); MCHC 32.3 g/dl (32.0-35.9); MEAN CELL VOLUME 86.4 fl (80-96); MEAN PLT VOLUME 7.5 fl (7.5-11.1); PLATELET COUNT 223 K/MM3 (134-434); RBC 3.25 M/mm3 (4.00-5.60); RDW 17.9 % (11.9-15.9); WHITE BLOOD COUNT 6.2 K/mm3 (4.0-10.0)
[2020-11-02] MEDS ORDERED: EPOETIN ALFA-EPBX 20,000 UNIT/ML VIAL SQ ONE (12:45)
[2020-11-02 12:51] LABS: CHLORIDE 101 mmol/L (98-107); SODIUM 140 mmol/L (136-145)
[2020-11-02 12:54] LABS: ANION GAP 10 MMOL/L (8-16); BLOOD UREA NITROGEN 49.6 mg/dL (7-18); CALCIUM 8.6 mg/dL (8.5-10.1); CO2 28 mmol/L (21-32); GLUCOSE,RANDOM 218 mg/dL (74-106)
[2020-11-02 12:57] LABS: PHOSPHOROUS 3.4 mg/dL (2.5-4.9)
[2020-11-02 13:05] LABS: CREATININE 7.5 mg/dL (0.55-1.3)
[2020-11-02 15:23] VITALS: PULSE 74
[2020-11-02 19:11] VITALS: BP 146/68; TEMP 97.5
== END 2020-11-02 20:16 | disposition home or self-care (01) | DRG 306 ==
LOC: JER 14:23 → JERBED 16:10 → J7W 22:29 → J5S 10-29 00:54
PROVIDERS: ADMIT Internal Medicine; ATTEND Internal Medicine
PROC: 5A1D70Z Performance of Urinary Filtration, Intermittent, Less than 6 Hours Per Day (ICD-10-PCS; principal; 2020-11-02)
DX: I38 Endocarditis, valve unspecified (principal); J18.9 Pneumonia, unspecified organism; N18.6 End stage renal disease; I50.32 Chronic diastolic (congestive) heart failure; I13.2 Hypertensive heart and chronic kidney disease with heart failure and with stage 5 chronic kidney disease, or end stage renal disease; E11.21 Type 2 diabetes mellitus with diabetic nephropathy; I25.10 Atherosclerotic heart disease of native coronary artery without angina pectoris; F14.90 Cocaine use, unspecified, uncomplicated; F12.90 Cannabis use, unspecified, uncomplicated; F20.9 Schizophrenia, unspecified; Z95.5 Presence of coronary angioplasty implant and graft; Z91.19 Patient's noncompliance with other medical treatment and regimen; N40.0 Benign prostatic hyperplasia without lower urinary tract symptoms; D63.1 Anemia in chronic kidney disease; E66.9 Obesity, unspecified; Z68.28 Body mass index [BMI] 28.0-28.9, adult
CPT/HCPCS: 36415; 71045-TC-FY; 80048; 80053; 82962; 83036; 83605; 83735; 83880; 84100; 85025; 85027; 85610; 85730; 87040; 87081; 87804; 93005; 93010; 93306-TC; 99285-25; C9803; G0480; J1644; Q5106; U0003; U0005

== ENCOUNTER 2021-01-23 15:32 | Inpatient (IN) | payer OTHER ==
[2021-01-23 17:17] LABS: BASO % 0.1 % (0-2.0); EOS % 0.1 % (0-4.5); HEMATOCRIT 27.1 % (35.4-49); HEMOGLOBIN 8.6 GM/dL (11.7-16.9); MCHC 31.9 g/dl (32.0-35.9); MEAN CELL VOLUME 84.8 fl (80-96); MEAN PLT VOLUME 7.2 fl (7.5-11.1); MONO % 6.3 % (3.8-10.2); NEUT % 91.5 % (42.8-82.8); PLATELET COUNT 319 10^3/uL (134-434); RBC 3.19 M/mm3 (4.00-5.60); RDW 16.9 % (11.9-15.9); WHITE BLOOD COUNT 14.7 K/mm3 (4.0-10.0)
[2021-01-23 17:23] LABS: INR 1.49 (0.83-1.09); PROTHROMBIN TIME (PATIENT) 18.1 SEC (9.7-13.0)
[2021-01-23 17:26] LABS: ACTIVATED PTT 24.3 SECONDS (25.2-36.5)
[2021-01-23] MEDS ORDERED: ACETAMINOPHEN 1000 MG/100 ML VIAL (NON FORMULARY) IVPB ONE (17:30)
[2021-01-23 17:38] LABS: CHLORIDE 99 mmol/L (98-107); SODIUM 134 mmol/L (136-145)
[2021-01-23] MEDS ORDERED: ACETAMINOPHEN INJECTION 100 ML IVPB ONE (17:38)
[2021-01-23 17:40] LABS: ALBUMIN 2.8 g/dl (3.4-5.0); ANION GAP 13 MMOL/L (8-16); BLOOD UREA NITROGEN 61.4 mg/dL (7-18); CALCIUM 8.2 mg/dL (8.5-10.1); CO2 22 mmol/L (21-32); GLUCOSE,RANDOM 188 mg/dL (74-106)
[2021-01-23 17:43] LABS: BILIRUBIN,DIRECT 0.4 mg/dL (0.0-0.2)
[2021-01-23 17:44] LABS: BILIRUBIN,TOTAL 0.8 mg/dL (0.2-1); SGOT/AST 37 U/L (15-37); SGPT/ALT 53 U/L (13-61)
[2021-01-23 17:47] LABS: ALK PHOS 113 U/L (45-117); LDH 282 U/L (87-246)
[2021-01-23 17:59] LABS: LACTIC ACID 2.6 mmol/L (0.4-2.0)
[2021-01-23] MEDS ORDERED: PIPERACILLIN/TAZOB 2.25 GM 2.25 GM in DEXTROSE 5%-WATER - 50 ML IVPB ONE (18:01)
[2021-01-23] MEDS ORDERED: VANCOMYCIN 1 GM in D5W (PRE-DOCKED) 1,000 MG/250 ML IVPB ONE (18:02)
[2021-01-23 18:16] LABS: PLATELET ESTIMATE NORMAL
[2021-01-23 23:17] VITALS: BMI 27.5
[2021-01-24] MEDS: HEPARIN NA (PORCINE) 5,000 UNITS/ML 1ML VIAL SQ SCH ×4 (00:19→22:15)
[2021-01-24] MEDS ORDERED: PIPERACILLIN/TAZOBACTAM 2.25 GM VIAL IVPB ONE ×3 (01:18→18:19)
[2021-01-24] MEDS ORDERED: DEXTROSE 5%-WATER - 50 ML IVPB ONE ×2 (01:19→09:31)
[2021-01-24] MEDS: PIPERACILLIN/TAZOB 2.25 GM 2.25 GM in DEXTROSE 5%-WATER - 50 ML IVPB SCH ×2 (01:40→09:50)
[2021-01-24] MEDS: INSULIN SLIDING SCALE (NOVOLOG) 1 VIAL SQ SCH ×4 (01:41→18:17)
[2021-01-24] MEDS: ACETAMINOPHEN 325 MG TABLET (FP) PO PRN ×3 (02:51→18:40)
[2021-01-24 07:15] LABS: BASO % 0.6 % (0-2.0); EOS % 0.7 % (0-4.5); HEMATOCRIT 28.7 % (35.4-49); LYMPH % 5.1 % (8-40); MCH 26.9 pg (25.7-33.7); MCHC 31.4 g/dl (32.0-35.9); MEAN CELL VOLUME 85.7 fl (80-96); MEAN PLT VOLUME 7.3 fl (7.5-11.1); MONO % 7.6 % (3.8-10.2); PLATELET COUNT 313 10^3/uL (134-434); RBC 3.35 M/mm3 (4.00-5.60); RDW 16.8 % (11.9-15.9); WHITE BLOOD COUNT 13.4 K/mm3 (4.0-10.0)
[2021-01-24 07:41] LABS: CHLORIDE 100 mmol/L (98-107); SODIUM 137 mmol/L (136-145)
[2021-01-24 07:55] LABS: ALBUMIN 2.6 g/dl (3.4-5.0); BLOOD UREA NITROGEN 68.1 mg/dL (7-18)
[2021-01-24 07:56] LABS: ANION GAP 13 MMOL/L (8-16); CALCIUM 8.2 mg/dL (8.5-10.1); CO2 24 mmol/L (21-32); GLUCOSE,RANDOM 131 mg/dL (74-106)
[2021-01-24 07:58] LABS: MAGNESIUM 2.1 mg/dL (1.8-2.4); SGOT/AST 28 U/L (15-37); SGPT/ALT 50 U/L (13-61)
[2021-01-24 07:59] LABS: PHOSPHOROUS 5.2 mg/dL (2.5-4.9)
[2021-01-24 08:00] LABS: TOT PROT 7.5 g/dl (6.4-8.2)
[2021-01-24 08:01] LABS: ALK PHOS 102 U/L (45-117)
[2021-01-24 08:05] LABS: BILIRUBIN,TOTAL 0.6 mg/dL (0.2-1)
[2021-01-24 08:06] LABS: CREATININE 10.2 mg/dL (0.55-1.3)
[2021-01-24] MEDS ORDERED: TAMSULOSIN HCL 0.4 MG CAP PO SCH (08:30)
[2021-01-24] MEDS ORDERED: LISINOPRIL 20 MG TABLET PO SCH (10:00)
[2021-01-24] MEDS ORDERED: NIFEdipine E.R 60 MG TABLET PO SCH (10:00)
[2021-01-24] MEDS ORDERED: CLOPIDOGREL BISULFATE 75 MG TABLET (FP) PO SCH (10:00)
[2021-01-24] MEDS ORDERED: PANTOPRAZOLE 40 MG TABLET PO SCH (10:00)
[2021-01-24] MEDS ORDERED: SODIUM CHLORIDE 250 ML IV PRN ×3 (11:26→21:09)
[2021-01-24] MEDS: CLINDAMYCIN 600MG PREMIX IVPB 600 MG/50 ML BAG IVPB SCH (12:09)
[2021-01-24] MEDS ORDERED: PIPERACILLIN/TAZOB 2.25 GM 2.25 GM in DEXTROSE 5%-WATER - 50 ML IVPB SCH (18:00)
[2021-01-24] MEDS ORDERED: VANCOMYCIN 1,000 MG VIAL (RESTRICTED TO ID ONLY) ONE (19:12)
[2021-01-24] MEDS ORDERED: PROPOFOL 20 ML ONE ×2 (19:31)
[2021-01-24] MEDS ORDERED: MIDAZOLAM HCL 2 MG/2 ML SINGLE DOSE VIAL ONE (19:31)
[2021-01-24] MEDS ORDERED: LIDOCAINE HCL/PF 2% SDV 5ML VIAL ONE (19:55)
[2021-01-24] MEDS ORDERED: LIDOCAINE HCL 1%, 10 MG/ML (50 mL VIAL) INF ONE (19:59)
[2021-01-24] MEDS ORDERED: SODIUM CHLORIDE 1,000 ML IV SCH (21:00)
[2021-01-24] MEDS ORDERED: ATORVASTATIN CA 80 MG TABLET (FP) PO SCH (22:00)
[2021-01-24] MEDS ORDERED: LABETALOL HCL 200 MG TABLET (FP) PO SCH (22:00)
[2021-01-24] MEDS: ATORVASTATIN CA 80 MG TABLET (FP) PO SCH (22:15)
[2021-01-24] MEDS: LABETALOL HCL 200 MG TABLET (FP) PO SCH (22:15)
[2021-01-25] MEDS ORDERED: DEXTROSE 5%-WATER - 50 ML IVPB ONE ×3 (01:35→16:52)
[2021-01-25] MEDS ORDERED: PIPERACILLIN/TAZOBACTAM 2.25 GM VIAL IVPB ONE ×3 (01:35→16:52)
[2021-01-25] MEDS ORDERED: VANCOMYCIN/WATER FOR INJ (PEG) 750 MG/150 ML BAG IVPB SCH (01:45)
[2021-01-25] MEDS: PIPERACILLIN/TAZOB 2.25 GM 2.25 GM in DEXTROSE 5%-WATER - 50 ML IVPB SCH ×3 (01:45→18:53)
[2021-01-25] MEDS: ACETAMINOPHEN 325 MG TABLET (FP) PO PRN ×2 (01:47→22:09)
[2021-01-25] MEDS ORDERED: PIPERACILLIN/TAZOB 2.25 GM 2.25 GM in DEXTROSE 5%-WATER - 50 ML IVPB SCH (02:00)
[2021-01-25] MEDS: CLINDAMYCIN 600MG PREMIX IVPB 600 MG/50 ML BAG IVPB SCH ×4 (02:56→22:05)
[2021-01-25] MEDS: HEPARIN NA (PORCINE) 5,000 UNITS/ML 1ML VIAL SQ SCH ×3 (06:15→22:05)
[2021-01-25] MEDS: INSULIN SLIDING SCALE (NOVOLOG) 1 VIAL SQ SCH ×3 (06:17→17:19)
[2021-01-25] MEDS ORDERED: EPOETIN ALFA-EPBX 10,000 UNIT/ML VIAL IVPUSH ONE ×2 (08:00→09:00)
[2021-01-25] MEDS ORDERED: SODIUM CHLORIDE 250 ML IV PRN (08:29)
[2021-01-25 08:51] LABS: HEMATOCRIT 22.8 % (35.4-49); HEMOGLOBIN 7.3 GM/dL (11.7-16.9); MCH 27.2 pg (25.7-33.7); MEAN CELL VOLUME 84.8 fl (80-96); MEAN PLT VOLUME 7.9 fl (7.5-11.1); PLATELET COUNT 301 10^3/uL (134-434); RBC 2.69 M/mm3 (4.00-5.60); RDW 17.1 % (11.9-15.9); WHITE BLOOD COUNT 14.1 K/mm3 (4.0-10.0)
[2021-01-25 09:01] LABS: CHLORIDE 98 mmol/L (98-107); SODIUM 136 mmol/L (136-145)
[2021-01-25 09:02] LABS: ANION GAP 11 MMOL/L (8-16); CALCIUM 7.6 mg/dL (8.5-10.1); CO2 27 mmol/L (21-32)
[2021-01-25 09:04] LABS: GLUCOSE,RANDOM 186 mg/dL (74-106)
[2021-01-25 09:06] LABS: PHOSPHOROUS 5.2 mg/dL (2.5-4.9)
[2021-01-25 09:29] LABS: CREATININE 7.5 mg/dL (0.55-1.3)
[2021-01-25] MEDS ORDERED: NIFEdipine E.R 60 MG TABLET PO SCH (10:00)
[2021-01-25] MEDS: PANTOPRAZOLE 40 MG TABLET PO SCH (12:19)
[2021-01-25] MEDS: TAMSULOSIN HCL 0.4 MG CAP PO SCH (12:19)
[2021-01-25] MEDS: CLOPIDOGREL BISULFATE 75 MG TABLET (FP) PO SCH (12:19)
[2021-01-25] MEDS: VITAMIN B COMP W-C 1 EA TABLET (NEPHRO-VITE) PO SCH (12:20)
[2021-01-25] MEDS: LISINOPRIL 20 MG TABLET PO SCH (12:20)
[2021-01-25] MEDS: LABETALOL HCL 200 MG TABLET (FP) PO SCH ×2 (12:48→22:08)
[2021-01-25 13:03] LABS: BASO % 0.3 % (0-2.0); EOS % 0.2 % (0-4.5); HEMATOCRIT 24.9 % (35.4-49); LYMPH % 4.3 % (8-40); MCHC 32.2 g/dl (32.0-35.9); MEAN CELL VOLUME 83.9 fl (80-96); MEAN PLT VOLUME 7.7 fl (7.5-11.1); MONO % 7.5 % (3.8-10.2); NEUT % 87.7 % (42.8-82.8); PLATELET COUNT 352 10^3/uL (134-434); RBC 2.96 M/mm3 (4.00-5.60); RDW 16.9 % (11.9-15.9); WHITE BLOOD COUNT 15.5 K/mm3 (4.0-10.0)
[2021-01-25] MEDS ORDERED: INSULIN (NOVOLOG) ASPART 100 UNITS/ML 10ML VIAL ONE (17:06)
[2021-01-25] MEDS: oxyCODONE HCL 5 MG TABLET PO PRN (17:18)
[2021-01-25] MEDS: ATORVASTATIN CA 80 MG TABLET (FP) PO SCH (22:07)
[2021-01-26] MEDS: PIPERACILLIN/TAZOB 2.25 GM 2.25 GM in DEXTROSE 5%-WATER - 50 ML IVPB SCH ×3 (03:00→18:07)
[2021-01-26] MEDS: CLINDAMYCIN 600MG PREMIX IVPB 600 MG/50 ML BAG IVPB SCH ×4 (04:00→22:17)
[2021-01-26] MEDS ORDERED: PIPERACILLIN/TAZOBACTAM 2.25 GM VIAL IVPB ONE ×3 (04:12→18:06)
[2021-01-26] MEDS ORDERED: DEXTROSE 5%-WATER - 50 ML IVPB ONE ×3 (04:12→18:07)
[2021-01-26] MEDS: oxyCODONE HCL 5 MG TABLET PO PRN (06:18)
[2021-01-26] MEDS: HEPARIN NA (PORCINE) 5,000 UNITS/ML 1ML VIAL SQ SCH ×3 (06:20→22:21)
[2021-01-26] MEDS: INSULIN SLIDING SCALE (NOVOLOG) 1 VIAL SQ SCH ×3 (06:21→18:04)
[2021-01-26] MEDS ORDERED: PT OWN MED DRAWER 7, Y5N ONE (10:31)
[2021-01-26] MEDS: CLOPIDOGREL BISULFATE 75 MG TABLET (FP) PO SCH (10:35)
[2021-01-26] MEDS: VITAMIN B COMP W-C 1 EA TABLET (NEPHRO-VITE) PO SCH (10:35)
[2021-01-26] MEDS: PANTOPRAZOLE 40 MG TABLET PO SCH (10:35)
[2021-01-26] MEDS: TAMSULOSIN HCL 0.4 MG CAP PO SCH (10:35)
[2021-01-26] MEDS: LISINOPRIL 20 MG TABLET PO SCH (10:35)
[2021-01-26] MEDS: LABETALOL HCL 200 MG TABLET (FP) PO SCH ×2 (10:35→22:26)
[2021-01-26 11:46] LABS: EOS % 0.9 % (0-4.5); HEMATOCRIT 26.1 % (35.4-49); HEMOGLOBIN 8.3 GM/dL (11.7-16.9); LYMPH % 6.8 % (8-40); MCH 27.5 pg (25.7-33.7); MCHC 31.9 g/dl (32.0-35.9); MEAN CELL VOLUME 86.3 fl (80-96); MEAN PLT VOLUME 7.8 fl (7.5-11.1); NEUT % 82.3 % (42.8-82.8); PLATELET COUNT 340 10^3/uL (134-434); RBC 3.02 M/mm3 (4.00-5.60); RDW 17.3 % (11.9-15.9)
[2021-01-26 12:19] LABS: CALCIUM 7.6 mg/dL (8.5-10.1)
[2021-01-26 12:20] LABS: ALBUMIN 2.1 g/dl (3.4-5.0); BLOOD UREA NITROGEN 48.7 mg/dL (7-18)
[2021-01-26 12:23] LABS: CREATININE 6.1 mg/dL (0.55-1.3); PHOSPHOROUS 3.5 mg/dL (2.5-4.9)
[2021-01-26 12:24] LABS: BILIRUBIN,TOTAL 0.6 mg/dL (0.2-1); TOT PROT 6.8 g/dl (6.4-8.2)
[2021-01-26] MEDS: SODIUM HYPOCHLORITE 0.25%- 473 ML BULK BOTTLE TP SCH (13:20)
[2021-01-26] MEDS ORDERED: SODIUM CHLORIDE 250 ML IV PRN (14:07)
[2021-01-26] MEDS: ATORVASTATIN CA 80 MG TABLET (FP) PO SCH (22:26)
[2021-01-27] MEDS ORDERED: DEXTROSE 5%-WATER - 50 ML IVPB ONE ×3 (01:05→17:42)
[2021-01-27] MEDS ORDERED: PIPERACILLIN/TAZOBACTAM 2.25 GM VIAL IVPB ONE ×3 (01:05→17:41)
[2021-01-27] MEDS: PIPERACILLIN/TAZOB 2.25 GM 2.25 GM in DEXTROSE 5%-WATER - 50 ML IVPB SCH ×3 (01:24→17:45)
[2021-01-27] MEDS: CLINDAMYCIN 600MG PREMIX IVPB 600 MG/50 ML BAG IVPB SCH ×6 (02:36→21:41)
[2021-01-27] MEDS: HEPARIN NA (PORCINE) 5,000 UNITS/ML 1ML VIAL SQ SCH ×3 (05:58→21:42)
[2021-01-27] MEDS: INSULIN SLIDING SCALE (NOVOLOG) 1 VIAL SQ SCH ×3 (06:00→17:15)
[2021-01-27] MEDS ORDERED: EPOETIN ALFA-EPBX 10,000 UNIT/ML VIAL SQ ONE (09:00)
[2021-01-27] MEDS: TAMSULOSIN HCL 0.4 MG CAP PO SCH ×2 (09:32→11:47)
[2021-01-27 10:29] LABS: HEMATOCRIT 23.2 % (35.4-49); HEMOGLOBIN 7.4 GM/dL (11.7-16.9); MCH 27.2 pg (25.7-33.7); MEAN CELL VOLUME 84.8 fl (80-96); MEAN PLT VOLUME 7.6 fl (7.5-11.1); PLATELET COUNT 360 10^3/uL (134-434); RBC 2.74 M/mm3 (4.00-5.60); RDW 17.4 % (11.9-15.9)
[2021-01-27 10:41] LABS: CALCIUM 7.6 mg/dL (8.5-10.1)
[2021-01-27 10:42] LABS: ALBUMIN 2.1 g/dl (3.4-5.0); BLOOD UREA NITROGEN 38.7 mg/dL (7-18)
[2021-01-27 10:45] LABS: CREATININE 4.9 mg/dL (0.55-1.3)
[2021-01-27 10:46] LABS: BILIRUBIN,TOTAL 0.5 mg/dL (0.2-1)
[2021-01-27 10:47] LABS: TOT PROT 6.8 g/dl (6.4-8.2)
[2021-01-27] MEDS: LISINOPRIL 20 MG TABLET PO SCH (11:47)
[2021-01-27] MEDS: PANTOPRAZOLE 40 MG TABLET PO SCH (11:47)
[2021-01-27] MEDS: LABETALOL HCL 200 MG TABLET (FP) PO SCH ×2 (11:47→21:41)
[2021-01-27] MEDS: VITAMIN B COMP W-C 1 EA TABLET (NEPHRO-VITE) PO SCH (11:48)
[2021-01-27] MEDS: CLOPIDOGREL BISULFATE 75 MG TABLET (FP) PO SCH (11:48)
[2021-01-27] MEDS: SODIUM HYPOCHLORITE 0.25%- 473 ML BULK BOTTLE TP SCH (13:30)
[2021-01-27] MEDS ORDERED: PT OWN MED DRAWER 7, Y5N ONE (17:41)
[2021-01-27] MEDS: ATORVASTATIN CA 80 MG TABLET (FP) PO SCH (21:41)
[2021-01-27] MEDS: ACETAMINOPHEN 325 MG TABLET (FP) PO PRN (23:05)
[2021-01-28] MEDS ORDERED: PIPERACILLIN/TAZOBACTAM 2.25 GM VIAL IVPB ONE ×3 (00:47→17:12)
[2021-01-28] MEDS ORDERED: DEXTROSE 5%-WATER - 50 ML IVPB ONE ×3 (00:47→17:12)
[2021-01-28] MEDS: PIPERACILLIN/TAZOB 2.25 GM 2.25 GM in DEXTROSE 5%-WATER - 50 ML IVPB SCH ×3 (01:35→17:14)
[2021-01-28] MEDS: INSULIN SLIDING SCALE (NOVOLOG) 1 VIAL SQ SCH ×3 (06:30→17:15)
[2021-01-28] MEDS: HEPARIN NA (PORCINE) 5,000 UNITS/ML 1ML VIAL SQ SCH ×3 (06:32→21:27)
[2021-01-28] MEDS: TAMSULOSIN HCL 0.4 MG CAP PO SCH (08:26)
[2021-01-28] MEDS: PANTOPRAZOLE 40 MG TABLET PO SCH (09:20)
[2021-01-28] MEDS: LISINOPRIL 20 MG TABLET PO SCH (09:20)
[2021-01-28] MEDS: CLOPIDOGREL BISULFATE 75 MG TABLET (FP) PO SCH (09:20)
[2021-01-28] MEDS: LABETALOL HCL 200 MG TABLET (FP) PO SCH ×2 (09:21→21:27)
[2021-01-28] MEDS: oxyCODONE HCL 5 MG TABLET PO PRN ×2 (09:21→23:22)
[2021-01-28] MEDS: VITAMIN B COMP W-C 1 EA TABLET (NEPHRO-VITE) PO SCH (09:22)
[2021-01-28] MEDS: NIFEdipine E.R 60 MG TABLET PO SCH (09:22)
[2021-01-28] MEDS: SODIUM HYPOCHLORITE 0.25%- 473 ML BULK BOTTLE TP SCH (16:00)
[2021-01-28] MEDS: ATORVASTATIN CA 80 MG TABLET (FP) PO SCH (21:27)
[2021-01-29] MEDS ORDERED: DEXTROSE 5%-WATER - 50 ML IVPB ONE ×3 (01:01→16:40)
[2021-01-29] MEDS ORDERED: PIPERACILLIN/TAZOBACTAM 2.25 GM VIAL IVPB ONE ×3 (01:01→16:40)
[2021-01-29] MEDS: PIPERACILLIN/TAZOB 2.25 GM 2.25 GM in DEXTROSE 5%-WATER - 50 ML IVPB SCH ×3 (01:14→17:12)
[2021-01-29] MEDS: INSULIN SLIDING SCALE (NOVOLOG) 1 VIAL SQ SCH ×3 (06:41→17:11)
[2021-01-29] MEDS: HEPARIN NA (PORCINE) 5,000 UNITS/ML 1ML VIAL SQ SCH ×3 (06:41→21:23)
[2021-01-29] MEDS: PANTOPRAZOLE 40 MG TABLET PO SCH (09:08)
[2021-01-29] MEDS: oxyCODONE HCL 5 MG TABLET PO PRN ×2 (09:08→21:23)
[2021-01-29] MEDS: CLOPIDOGREL BISULFATE 75 MG TABLET (FP) PO SCH (09:09)
[2021-01-29] MEDS: VITAMIN B COMP W-C 1 EA TABLET (NEPHRO-VITE) PO SCH (09:09)
[2021-01-29] MEDS: TAMSULOSIN HCL 0.4 MG CAP PO SCH (09:09)
[2021-01-29] MEDS: LISINOPRIL 20 MG TABLET PO SCH (09:09)
[2021-01-29] MEDS: LABETALOL HCL 200 MG TABLET (FP) PO SCH ×2 (09:09→21:23)
[2021-01-29] MEDS: NIFEdipine E.R 60 MG TABLET PO SCH (09:09)
[2021-01-29] MEDS: SODIUM HYPOCHLORITE 0.25%- 473 ML BULK BOTTLE TP SCH (09:16)
[2021-01-29] MEDS: ATORVASTATIN CA 80 MG TABLET (FP) PO SCH (21:23)
[2021-01-29] MEDS ORDERED: PHENYLEPHRINE HCL/COCOA BUTTER SUPPOSITORY RC SCH (22:00)
[2021-01-30] MEDS ORDERED: PIPERACILLIN/TAZOBACTAM 2.25 GM VIAL IVPB ONE ×3 (01:36→16:32)
[2021-01-30] MEDS ORDERED: DEXTROSE 5%-WATER - 50 ML IVPB ONE ×3 (01:37→16:33)
[2021-01-30] MEDS: PIPERACILLIN/TAZOB 2.25 GM 2.25 GM in DEXTROSE 5%-WATER - 50 ML IVPB SCH ×3 (01:40→17:30)
[2021-01-30] MEDS: HEPARIN NA (PORCINE) 5,000 UNITS/ML 1ML VIAL SQ SCH ×3 (06:15→21:32)
[2021-01-30] MEDS: INSULIN SLIDING SCALE (NOVOLOG) 1 VIAL SQ SCH ×3 (06:15→16:37)
[2021-01-30] MEDS ORDERED: EPOETIN ALFA-EPBX 10,000 UNIT/ML VIAL SQ ONE (07:00)
[2021-01-30] MEDS ORDERED: SODIUM CHLORIDE 250 ML IV PRN (07:00)
[2021-01-30] MEDS ORDERED: PT OWN MED DRAWER 7, Y5N ONE ×2 (10:21→11:00)
[2021-01-30 11:21] LABS: HEMATOCRIT 21.5 % (35.4-49); MCH 27.7 pg (25.7-33.7); MCHC 31.9 g/dl (32.0-35.9); MEAN CELL VOLUME 86.7 fl (80-96); MEAN PLT VOLUME 7.6 fl (7.5-11.1); PLATELET COUNT 420 10^3/uL (134-434); RBC 2.47 M/mm3 (4.00-5.60); RDW 17.2 % (11.9-15.9); WHITE BLOOD COUNT 11.5 K/mm3 (4.0-10.0)
[2021-01-30 11:25] LABS: HEMOGLOBIN 6.9 GM/dL (11.7-16.9)
[2021-01-30] MEDS: PANTOPRAZOLE 40 MG TABLET PO SCH (11:30)
[2021-01-30] MEDS: NIFEdipine E.R 60 MG TABLET PO SCH (11:30)
[2021-01-30] MEDS: LISINOPRIL 20 MG TABLET PO SCH (11:31)
[2021-01-30] MEDS: TAMSULOSIN HCL 0.4 MG CAP PO SCH (11:31)
[2021-01-30] MEDS: LABETALOL HCL 200 MG TABLET (FP) PO SCH ×2 (11:32→21:32)
[2021-01-30] MEDS: CLOPIDOGREL BISULFATE 75 MG TABLET (FP) PO SCH (11:33)
[2021-01-30] MEDS: VITAMIN B COMP W-C 1 EA TABLET (NEPHRO-VITE) PO SCH (11:34)
[2021-01-30] MEDS: SODIUM HYPOCHLORITE 0.25%- 473 ML BULK BOTTLE TP SCH (11:36)
[2021-01-30 11:37] LABS: CHLORIDE 94 mmol/L (98-107); SODIUM 135 mmol/L (136-145)
[2021-01-30 11:39] LABS: CALCIUM 7.8 mg/dL (8.5-10.1)
[2021-01-30 11:40] LABS: ANION GAP 16 MMOL/L (8-16); CO2 25 mmol/L (21-32); GLUCOSE,RANDOM 319 mg/dL (74-106)
[2021-01-30 11:46] LABS: BLOOD UREA NITROGEN 77.6 mg/dL (7-18); CREATININE 10.2 mg/dL (0.55-1.3)
[2021-01-30] MEDS ORDERED: ONDANSETRON 4 MG/2 ML VIAL IVPUSH PRN ×2 (12:16→15:30)
[2021-01-30] MEDS ORDERED: PROPOFOL 20 ML ONE (13:16)
[2021-01-30] MEDS ORDERED: MIDAZOLAM HCL 2 MG/2 ML SINGLE DOSE VIAL ONE (13:16)
[2021-01-30] MEDS ORDERED: LIDOCAINE HCL 1%, 10 MG/ML (20ML VIAL) NR ONE (13:35)
[2021-01-30] MEDS ORDERED: BACITRACIN 50,000 UNITS VIAL TP ONE (13:39)
[2021-01-30] MEDS ORDERED: ACETAMINOPHEN 325 MG TABLET (FP) PO PRN (15:30)
[2021-01-30 20:44] LABS: BASO % 0.8 % (0-2.0); EOS % 1.8 % (0-4.5); HEMATOCRIT 24.8 % (35.4-49); HEMOGLOBIN 8.1 GM/dL (11.7-16.9); LYMPH % 7.9 % (8-40); MCH 28.4 pg (25.7-33.7); MCHC 32.6 g/dl (32.0-35.9); MEAN PLT VOLUME 7.4 fl (7.5-11.1); MONO % 7.6 % (3.8-10.2); NEUT % 81.9 % (42.8-82.8); PLATELET COUNT 418 10^3/uL (134-434); RBC 2.85 M/mm3 (4.00-5.60); WHITE BLOOD COUNT 12.2 K/mm3 (4.0-10.0)
[2021-01-30] MEDS: ATORVASTATIN CA 80 MG TABLET (FP) PO SCH (21:32)
[2021-01-30] MEDS: PHENYLEPHRINE HCL/COCOA BUTTER SUPPOSITORY RC SCH (21:33)
[2021-01-30] MEDS: oxyCODONE HCL 5 MG TABLET PO PRN (21:35)
[2021-01-30 22:29] LABS: ANISOCYTOSIS 0; MACROCYTOSIS 0; PLATELET ESTIMATE NORMAL
[2021-01-31] MEDS ORDERED: PIPERACILLIN/TAZOBACTAM 2.25 GM VIAL IVPB ONE ×3 (01:21→16:50)
[2021-01-31] MEDS ORDERED: DEXTROSE 5%-WATER - 50 ML IVPB ONE ×3 (01:21→16:50)
[2021-01-31] MEDS: PIPERACILLIN/TAZOB 2.25 GM 2.25 GM in DEXTROSE 5%-WATER - 50 ML IVPB SCH ×3 (01:33→17:32)
[2021-01-31] MEDS: HEPARIN NA (PORCINE) 5,000 UNITS/ML 1ML VIAL SQ SCH ×3 (06:11→21:13)
[2021-01-31] MEDS: INSULIN SLIDING SCALE (NOVOLOG) 1 VIAL SQ SCH ×3 (06:13→16:58)
[2021-01-31 06:59] LABS: BASO % 0.7 % (0-2.0); EOS % 2.1 % (0-4.5); HEMATOCRIT 24.4 % (35.4-49); HEMOGLOBIN 7.8 GM/dL (11.7-16.9); LYMPH % 8.3 % (8-40); MCHC 31.9 g/dl (32.0-35.9); MEAN CELL VOLUME 87.7 fl (80-96); MEAN PLT VOLUME 7.4 fl (7.5-11.1); MONO % 7.7 % (3.8-10.2); NEUT % 81.2 % (42.8-82.8); PLATELET COUNT 428 10^3/uL (134-434); RBC 2.78 M/mm3 (4.00-5.60); WHITE BLOOD COUNT 11.9 K/mm3 (4.0-10.0)
[2021-01-31 07:08] LABS: HEP B CORE AB, TOT Negative (Negative)
[2021-01-31 07:28] LABS: ALBUMIN 2.1 g/dl (3.4-5.0); CALCIUM 7.6 mg/dL (8.5-10.1); MAGNESIUM 1.9 mg/dL (1.8-2.4)
[2021-01-31 07:31] LABS: PHOSPHOROUS 3.7 mg/dL (2.5-4.9)
[2021-01-31 07:33] LABS: BILIRUBIN,TOTAL 0.5 mg/dL (0.2-1)
[2021-01-31 07:34] LABS: BLOOD UREA NITROGEN 44.5 mg/dL (7-18)
[2021-01-31] MEDS: TAMSULOSIN HCL 0.4 MG CAP PO SCH (08:23)
[2021-01-31] MEDS: VITAMIN B COMP W-C 1 EA TABLET (NEPHRO-VITE) PO SCH (10:27)
[2021-01-31] MEDS: NIFEdipine E.R 60 MG TABLET PO SCH (10:28)
[2021-01-31] MEDS: CLOPIDOGREL BISULFATE 75 MG TABLET (FP) PO SCH (10:28)
[2021-01-31] MEDS: LISINOPRIL 20 MG TABLET PO SCH (10:28)
[2021-01-31] MEDS: PANTOPRAZOLE 40 MG TABLET PO SCH (10:28)
[2021-01-31] MEDS: LABETALOL HCL 200 MG TABLET (FP) PO SCH ×2 (10:28→22:21)
[2021-01-31] MEDS: SODIUM HYPOCHLORITE 0.25%- 473 ML BULK BOTTLE TP SCH (10:28)
[2021-01-31] MEDS ORDERED: SODIUM CHLORIDE 250 ML IV PRN (10:56)
[2021-01-31 11:33] LABS: ANISOCYTOSIS 1+; MACROCYTOSIS 0; PLATELET ESTIMATE INCREASED; ROULEAU 1+
[2021-01-31 20:39] LABS: BASO % 0.8 % (0-2.0); EOS % 2.2 % (0-4.5); HEMATOCRIT 23.9 % (35.4-49); HEMOGLOBIN 7.8 GM/dL (11.7-16.9); LYMPH % 9.3 % (8-40); MCH 28.4 pg (25.7-33.7); MCHC 32.5 g/dl (32.0-35.9); MEAN CELL VOLUME 87.2 fl (80-96); MEAN PLT VOLUME 7.2 fl (7.5-11.1); MONO % 7.1 % (3.8-10.2); NEUT % 80.6 % (42.8-82.8); PLATELET COUNT 396 10^3/uL (134-434); RBC 2.73 M/mm3 (4.00-5.60); RDW 17.4 % (11.9-15.9); WHITE BLOOD COUNT 10.7 K/mm3 (4.0-10.0)
[2021-01-31] MEDS: oxyCODONE HCL 5 MG TABLET PO PRN (21:13)
[2021-01-31] MEDS: ATORVASTATIN CA 80 MG TABLET (FP) PO SCH (21:13)
[2021-01-31] MEDS: PHENYLEPHRINE HCL/COCOA BUTTER SUPPOSITORY RC SCH (21:15)
[2021-01-31 21:51] LABS: ANISOCYTOSIS 1+; MACROCYTOSIS 0; PLATELET ESTIMATE NORMAL; TARGET CELLS 1+
[2021-02-01] MEDS ORDERED: DEXTROSE 5%-WATER - 50 ML IVPB ONE ×4 (01:17→17:21)
[2021-02-01] MEDS ORDERED: PIPERACILLIN/TAZOBACTAM 2.25 GM VIAL IVPB ONE ×4 (01:17→17:20)
[2021-02-01] MEDS: PIPERACILLIN/TAZOB 2.25 GM 2.25 GM in DEXTROSE 5%-WATER - 50 ML IVPB SCH ×3 (01:26→17:45)
[2021-02-01] MEDS: HEPARIN NA (PORCINE) 5,000 UNITS/ML 1ML VIAL SQ SCH ×3 (06:45→22:34)
[2021-02-01] MEDS: INSULIN SLIDING SCALE (NOVOLOG) 1 VIAL SQ SCH ×3 (06:45→17:44)
[2021-02-01] MEDS ORDERED: EPOETIN ALFA-EPBX 10,000 UNIT, EPOETIN ALFA-EPBX 3,000 UNIT, EPOETIN ALFA-EPBX 2,000 UNIT IVPUSH ONE (07:00)
[2021-02-01] MEDS: TAMSULOSIN HCL 0.4 MG CAP PO SCH (08:31)
[2021-02-01] MEDS: SODIUM HYPOCHLORITE 0.25%- 473 ML BULK BOTTLE TP SCH (09:54)
[2021-02-01] MEDS: NIFEdipine E.R 60 MG TABLET PO SCH (09:59)
[2021-02-01] MEDS: LABETALOL HCL 200 MG TABLET (FP) PO SCH ×2 (09:59→22:35)
[2021-02-01] MEDS: VITAMIN B COMP W-C 1 EA TABLET (NEPHRO-VITE) PO SCH (10:00)
[2021-02-01] MEDS: PANTOPRAZOLE 40 MG TABLET PO SCH (10:00)
[2021-02-01] MEDS: LISINOPRIL 20 MG TABLET PO SCH (10:00)
[2021-02-01] MEDS: CLOPIDOGREL BISULFATE 75 MG TABLET (FP) PO SCH (10:21)
[2021-02-01] MEDS ORDERED: EPOETIN ALFA-EPBX 10,000 UNIT/ML VIAL SQ ONE (10:56)
[2021-02-01] MEDS ORDERED: HEPARIN NA (PORCINE) 5,000 UNITS/ML 1ML VIAL ONE (12:59)
[2021-02-01] MEDS ORDERED: LIDOCAINE HCL 1%, 10 MG/ML (20ML VIAL) ONE (12:59)
[2021-02-01] MEDS ORDERED: PROPOFOL 20 ML ONE ×2 (13:37→14:32)
[2021-02-01] MEDS ORDERED: ceFAZolin SODIUM 1 GM VIAL IVPB ONE (13:44)
[2021-02-01] MEDS ORDERED: LIDOCAINE HCL 1%, 10 MG/ML (20ML VIAL) NR ONE ×2 (13:50→13:52)
[2021-02-01] MEDS ORDERED: IOVERSOL 320 MG/ML ML IV ONE ×2 (13:50→13:53)
[2021-02-01] MEDS ORDERED: ONDANSETRON 4 MG/2 ML VIAL IVPUSH PRN (15:37)
[2021-02-01] MEDS ORDERED: ACETAMINOPHEN 325 MG TABLET (FP) PO PRN (15:37)
[2021-02-01] MEDS ORDERED: SODIUM CHLORIDE 250 ML IV PRN (15:37)
[2021-02-01 18:12] LABS: HEMATOCRIT 24.1 % (35.4-49); HEMOGLOBIN 7.9 GM/dL (11.7-16.9); MCH 28.9 pg (25.7-33.7); MCHC 32.7 g/dl (32.0-35.9); MEAN CELL VOLUME 88.2 fl (80-96); MEAN PLT VOLUME 7.3 fl (7.5-11.1); PLATELET COUNT 443 10^3/uL (134-434); RBC 2.74 M/mm3 (4.00-5.60); RDW 17.4 % (11.9-15.9); WHITE BLOOD COUNT 10.9 K/mm3 (4.0-10.0)
[2021-02-01 18:30] LABS: CHLORIDE 98 mmol/L (98-107); SODIUM 137 mmol/L (136-145)
[2021-02-01 18:31] LABS: ANION GAP 14 MMOL/L (8-16); CO2 25 mmol/L (21-32)
[2021-02-01 18:32] LABS: BLOOD UREA NITROGEN 62.8 mg/dL (7-18); GLUCOSE,RANDOM 229 mg/dL (74-106)
[2021-02-01 18:35] LABS: CREATININE 9.3 mg/dL (0.55-1.3)
[2021-02-01] MEDS: oxyCODONE HCL 5 MG TABLET PO PRN (20:22)
[2021-02-01 20:55] LABS: BASO % 0.5 % (0-2.0); EOS % 1.5 % (0-4.5); HEMATOCRIT 25.4 % (35.4-49); HEMOGLOBIN 8.3 GM/dL (11.7-16.9); LYMPH % 8.1 % (8-40); MCH 28.5 pg (25.7-33.7); MCHC 32.7 g/dl (32.0-35.9); MEAN CELL VOLUME 87.1 fl (80-96); MEAN PLT VOLUME 7.4 fl (7.5-11.1); MONO % 4.7 % (3.8-10.2); NEUT % 85.2 % (42.8-82.8); PLATELET COUNT 465 10^3/uL (134-434); RBC 2.92 M/mm3 (4.00-5.60); RDW 17.6 % (11.9-15.9); WHITE BLOOD COUNT 12.7 K/mm3 (4.0-10.0)
[2021-02-01 21:58] LABS: ANISOCYTOSIS 1+; MACROCYTOSIS 1+; OVALOCYTE 1+; PLATELET ESTIMATE NORMAL
[2021-02-01] MEDS ORDERED: PT OWN MED DRAWER 7, Y5N ONE (22:29)
[2021-02-01] MEDS: ATORVASTATIN CA 80 MG TABLET (FP) PO SCH (22:35)
[2021-02-01] MEDS: PHENYLEPHRINE HCL/COCOA BUTTER SUPPOSITORY RC SCH (23:12)
[2021-02-02] MEDS ORDERED: PIPERACILLIN/TAZOBACTAM 2.25 GM VIAL IVPB ONE ×3 (01:19→18:17)
[2021-02-02] MEDS ORDERED: DEXTROSE 5%-WATER - 50 ML IVPB ONE ×3 (01:19→18:17)
[2021-02-02] MEDS: PIPERACILLIN/TAZOB 2.25 GM 2.25 GM in DEXTROSE 5%-WATER - 50 ML IVPB SCH ×3 (01:39→18:28)
[2021-02-02] MEDS: oxyCODONE HCL 5 MG TABLET PO PRN ×2 (02:20→10:17)
[2021-02-02] MEDS: HEPARIN NA (PORCINE) 5,000 UNITS/ML 1ML VIAL SQ SCH ×3 (06:16→21:22)
[2021-02-02] MEDS: INSULIN SLIDING SCALE (NOVOLOG) 1 VIAL SQ SCH ×3 (06:17→16:44)
[2021-02-02 07:15] LABS: BASO % 0.6 % (0-2.0); EOS % 1.1 % (0-4.5); HEMATOCRIT 24.5 % (35.4-49); HEMOGLOBIN 7.9 GM/dL (11.7-16.9); MCH 28.4 pg (25.7-33.7); MCHC 32.2 g/dl (32.0-35.9); MEAN CELL VOLUME 88.2 fl (80-96); MEAN PLT VOLUME 7.4 fl (7.5-11.1); NEUT % 85.3 % (42.8-82.8); PLATELET COUNT 455 10^3/uL (134-434); RBC 2.77 M/mm3 (4.00-5.60); RDW 17.2 % (11.9-15.9); WHITE BLOOD COUNT 12.8 K/mm3 (4.0-10.0)
[2021-02-02 07:37] LABS: CALCIUM 7.6 mg/dL (8.5-10.1)
[2021-02-02 07:38] LABS: ALBUMIN 2.1 g/dl (3.4-5.0)
[2021-02-02 07:41] LABS: CREATININE 5.9 mg/dL (0.55-1.3)
[2021-02-02 07:42] LABS: BILIRUBIN,TOTAL 0.5 mg/dL (0.2-1); TOT PROT 7.2 g/dl (6.4-8.2)
[2021-02-02 07:51] LABS: BLOOD UREA NITROGEN 34.5 mg/dL (7-18)
[2021-02-02] MEDS ORDERED: PT OWN MED DRAWER 7, Y5N ONE ×2 (10:01→10:17)
[2021-02-02] MEDS: TAMSULOSIN HCL 0.4 MG CAP PO SCH (10:02)
[2021-02-02] MEDS: SODIUM HYPOCHLORITE 0.25%- 473 ML BULK BOTTLE TP SCH (10:02)
[2021-02-02] MEDS: CLOPIDOGREL BISULFATE 75 MG TABLET (FP) PO SCH (10:03)
[2021-02-02] MEDS: LABETALOL HCL 200 MG TABLET (FP) PO SCH ×2 (10:03→21:23)
[2021-02-02] MEDS: VITAMIN B COMP W-C 1 EA TABLET (NEPHRO-VITE) PO SCH (10:03)
[2021-02-02] MEDS: LISINOPRIL 20 MG TABLET PO SCH (10:03)
[2021-02-02] MEDS: PANTOPRAZOLE 40 MG TABLET PO SCH (10:03)
[2021-02-02] MEDS: NIFEdipine E.R 60 MG TABLET PO SCH (10:03)
[2021-02-02] MEDS ORDERED: EPOETIN ALFA-EPBX 10,000 UNIT/ML VIAL SQ ONE (11:02)
[2021-02-02] MEDS: PHENYLEPHRINE HCL/COCOA BUTTER SUPPOSITORY RC SCH (21:23)
[2021-02-02] MEDS: ATORVASTATIN CA 80 MG TABLET (FP) PO SCH (21:23)
[2021-02-03] MEDS ORDERED: DEXTROSE 5%-WATER - 50 ML IVPB ONE ×3 (01:35→17:20)
[2021-02-03] MEDS ORDERED: PIPERACILLIN/TAZOBACTAM 2.25 GM VIAL IVPB ONE ×3 (01:35→17:20)
[2021-02-03] MEDS: PIPERACILLIN/TAZOB 2.25 GM 2.25 GM in DEXTROSE 5%-WATER - 50 ML IVPB SCH ×3 (01:39→17:52)
[2021-02-03] MEDS: HEPARIN NA (PORCINE) 5,000 UNITS/ML 1ML VIAL SQ SCH ×3 (05:54→21:30)
[2021-02-03] MEDS: oxyCODONE HCL 5 MG TABLET PO PRN ×3 (05:56→21:31)
[2021-02-03] MEDS: INSULIN SLIDING SCALE (NOVOLOG) 1 VIAL SQ SCH ×3 (06:00→17:15)
[2021-02-03 07:46] LABS: BASO % 0.6 % (0-2.0); EOS % 1.7 % (0-4.5); HEMATOCRIT 24.2 % (35.4-49); LYMPH % 10.6 % (8-40); MCH 29.6 pg (25.7-33.7); MCHC 33.3 g/dl (32.0-35.9); MEAN CELL VOLUME 88.9 fl (80-96); MEAN PLT VOLUME 7.3 fl (7.5-11.1); MONO % 5.4 % (3.8-10.2); NEUT % 81.7 % (42.8-82.8); PLATELET COUNT 465 10^3/uL (134-434); RBC 2.72 M/mm3 (4.00-5.60); RDW 17.8 % (11.9-15.9); WHITE BLOOD COUNT 10.6 K/mm3 (4.0-10.0)
[2021-02-03 08:07] LABS: MAGNESIUM 1.9 mg/dL (1.8-2.4)
[2021-02-03 08:11] LABS: PHOSPHOROUS 4.6 mg/dL (2.5-4.9)
[2021-02-03] MEDS: TAMSULOSIN HCL 0.4 MG CAP PO SCH (08:22)
[2021-02-03 08:42] LABS: ANISOCYTOSIS 1+; MACROCYTOSIS 1+; PLATELET ESTIMATE NORMAL
[2021-02-03] MEDS: PANTOPRAZOLE 40 MG TABLET PO SCH (10:23)
[2021-02-03] MEDS: SODIUM HYPOCHLORITE 0.25%- 473 ML BULK BOTTLE TP SCH (10:23)
[2021-02-03] MEDS: LISINOPRIL 20 MG TABLET PO SCH (10:23)
[2021-02-03] MEDS: VITAMIN B COMP W-C 1 EA TABLET (NEPHRO-VITE) PO SCH (10:23)
[2021-02-03] MEDS: NIFEdipine E.R 60 MG TABLET PO SCH (10:23)
[2021-02-03] MEDS: LABETALOL HCL 200 MG TABLET (FP) PO SCH ×2 (10:23→21:31)
[2021-02-03] MEDS: CLOPIDOGREL BISULFATE 75 MG TABLET (FP) PO SCH (10:23)
[2021-02-03] MEDS ORDERED: EPOETIN ALFA-EPBX 10,000 UNIT/ML VIAL SQ ONE (11:02)
[2021-02-03] MEDS ORDERED: SODIUM CHLORIDE 250 ML IV PRN (12:02)
[2021-02-03] MEDS ORDERED: EPOETIN ALFA EPBX SQ ONE (12:30)
[2021-02-03] MEDS ORDERED: EPOETIN ALFA EPBX IVPUSH ONE (12:30)
[2021-02-03 13:55] LABS: CHLORIDE 99 mmol/L (98-107); SODIUM 139 mmol/L (136-145)
[2021-02-03 13:58] LABS: BLOOD UREA NITROGEN 45.3 mg/dL (7-18)
[2021-02-03 13:59] LABS: ANION GAP 10 MMOL/L (8-16); CO2 29 mmol/L (21-32); GLUCOSE,RANDOM 284 mg/dL (74-106)
[2021-02-03 14:04] LABS: CALCIUM 7.9 mg/dL (8.5-10.1)
[2021-02-03 14:09] LABS: CREATININE 8.6 mg/dL (0.55-1.3)
[2021-02-03] MEDS: ATORVASTATIN CA 80 MG TABLET (FP) PO SCH (21:31)
[2021-02-03] MEDS: PHENYLEPHRINE HCL/COCOA BUTTER SUPPOSITORY RC SCH (21:39)
[2021-02-04] MEDS ORDERED: PIPERACILLIN/TAZOBACTAM 2.25 GM VIAL IVPB ONE ×3 (01:20→17:23)
[2021-02-04] MEDS ORDERED: DEXTROSE 5%-WATER - 50 ML IVPB ONE ×3 (01:20→17:23)
[2021-02-04] MEDS: PIPERACILLIN/TAZOB 2.25 GM 2.25 GM in DEXTROSE 5%-WATER - 50 ML IVPB SCH ×3 (01:34→17:27)
[2021-02-04] MEDS: HEPARIN NA (PORCINE) 5,000 UNITS/ML 1ML VIAL SQ SCH ×3 (06:10→21:23)
[2021-02-04] MEDS: INSULIN SLIDING SCALE (NOVOLOG) 1 VIAL SQ SCH ×3 (06:11→16:46)
[2021-02-04 08:09] LABS: BASO % 0.7 % (0-2.0); EOS % 1.3 % (0-4.5); HEMATOCRIT 25.8 % (35.4-49); HEMOGLOBIN 8.4 GM/dL (11.7-16.9); LYMPH % 9.5 % (8-40); MCH 29.2 pg (25.7-33.7); MCHC 32.5 g/dl (32.0-35.9); MEAN CELL VOLUME 89.9 fl (80-96); MEAN PLT VOLUME 7.3 fl (7.5-11.1); MONO % 5.6 % (3.8-10.2); NEUT % 82.9 % (42.8-82.8); PLATELET COUNT 463 10^3/uL (134-434); RBC 2.87 M/mm3 (4.00-5.60); RDW 18.4 % (11.9-15.9); WHITE BLOOD COUNT 10.9 K/mm3 (4.0-10.0)
[2021-02-04 08:15] LABS: CALCIUM 8.1 mg/dL (8.5-10.1)
[2021-02-04 08:17] LABS: ALBUMIN 2.3 g/dl (3.4-5.0)
[2021-02-04 08:20] LABS: CREATININE 5.7 mg/dL (0.55-1.3); TOT PROT 7.4 g/dl (6.4-8.2)
[2021-02-04 08:22] LABS: BILIRUBIN,TOTAL 0.5 mg/dL (0.2-1)
[2021-02-04] MEDS: PANTOPRAZOLE 40 MG TABLET PO SCH (09:54)
[2021-02-04] MEDS: NIFEdipine E.R 60 MG TABLET PO SCH (09:54)
[2021-02-04] MEDS: LISINOPRIL 20 MG TABLET PO SCH (09:55)
[2021-02-04] MEDS: TAMSULOSIN HCL 0.4 MG CAP PO SCH (09:55)
[2021-02-04] MEDS: LABETALOL HCL 200 MG TABLET (FP) PO SCH ×2 (09:55→21:24)
[2021-02-04] MEDS: CLOPIDOGREL BISULFATE 75 MG TABLET (FP) PO SCH (09:55)
[2021-02-04] MEDS: VITAMIN B COMP W-C 1 EA TABLET (NEPHRO-VITE) PO SCH (09:55)
[2021-02-04] MEDS: SODIUM HYPOCHLORITE 0.25%- 473 ML BULK BOTTLE TP SCH (11:08)
[2021-02-04] MEDS ORDERED: ONDANSETRON 4 MG/2 ML VIAL IVPUSH PRN (20:06)
[2021-02-04] MEDS ORDERED: ACETAMINOPHEN 325 MG TABLET (FP) PO PRN (20:06)
[2021-02-04] MEDS ORDERED: EPOETIN ALFA EPBX IVPUSH ONE (20:06)
[2021-02-04] MEDS: ATORVASTATIN CA 80 MG TABLET (FP) PO SCH (21:24)
[2021-02-04] MEDS ORDERED: PHENYLEPHRINE HCL/COCOA BUTTER SUPPOSITORY RC SCH (22:00)
[2021-02-05] MEDS ORDERED: DEXTROSE 5%-WATER - 50 ML IVPB ONE ×3 (00:11→16:48)
[2021-02-05] MEDS ORDERED: PIPERACILLIN/TAZOBACTAM 2.25 GM VIAL IVPB ONE ×3 (00:11→16:48)
[2021-02-05] MEDS: PIPERACILLIN/TAZOB 2.25 GM 2.25 GM in DEXTROSE 5%-WATER - 50 ML IVPB SCH ×3 (01:08→17:12)
[2021-02-05] MEDS: HEPARIN NA (PORCINE) 5,000 UNITS/ML 1ML VIAL SQ SCH ×3 (05:59→21:46)
[2021-02-05] MEDS: INSULIN SLIDING SCALE (NOVOLOG) 1 VIAL SQ SCH ×3 (06:00→17:12)
[2021-02-05] MEDS: INSULIN (LEVEMIR) 100 UNITS/ML UNITS SQ SCH (06:01)
[2021-02-05] MEDS ORDERED: INSULIN (NOVOLOG) ASPART 100 UNITS/ML 10ML VIAL ONE ×2 (06:49→08:59)
[2021-02-05] MEDS ORDERED: INSULIN (LEVEMIR) 100 UNITS/ML UNITS SQ SCH (07:00)
[2021-02-05 07:44] LABS: BASO % 0.9 % (0-2.0); EOS % 1.5 % (0-4.5); HEMATOCRIT 25.3 % (35.4-49); HEMOGLOBIN 8.2 GM/dL (11.7-16.9); LYMPH % 10.6 % (8-40); MCHC 32.3 g/dl (32.0-35.9); MEAN CELL VOLUME 89.8 fl (80-96); MONO % 5.4 % (3.8-10.2); NEUT % 81.6 % (42.8-82.8); PLATELET COUNT 457 10^3/uL (134-434); RBC 2.81 M/mm3 (4.00-5.60); RDW 18.5 % (11.9-15.9); WHITE BLOOD COUNT 11.1 K/mm3 (4.0-10.0)
[2021-02-05 07:54] LABS: CHLORIDE 99 mmol/L (98-107); SODIUM 139 mmol/L (136-145)
[2021-02-05 07:58] LABS: ALBUMIN 2.3 g/dl (3.4-5.0); ANION GAP 10 MMOL/L (8-16); CALCIUM 8.1 mg/dL (8.5-10.1); CO2 30 mmol/L (21-32); GLUCOSE,RANDOM 230 mg/dL (74-106)
[2021-02-05 08:01] LABS: SGOT/AST 16 U/L (15-37); SGPT/ALT 20 U/L (13-61)
[2021-02-05 08:03] LABS: BILIRUBIN,TOTAL 0.5 mg/dL (0.2-1); TOT PROT 7.4 g/dl (6.4-8.2)
[2021-02-05 08:04] LABS: ALK PHOS 123 U/L (45-117)
[2021-02-05 08:07] LABS: CREATININE 7.6 mg/dL (0.55-1.3)
[2021-02-05] MEDS: LISINOPRIL 20 MG TABLET PO SCH (09:13)
[2021-02-05] MEDS: NIFEdipine E.R 60 MG TABLET PO SCH (09:13)
[2021-02-05] MEDS: PANTOPRAZOLE 40 MG TABLET PO SCH (09:13)
[2021-02-05] MEDS: VITAMIN B COMP W-C 1 EA TABLET (NEPHRO-VITE) PO SCH (09:14)
[2021-02-05] MEDS: SODIUM HYPOCHLORITE 0.25%- 473 ML BULK BOTTLE TP SCH (09:14)
[2021-02-05] MEDS: LABETALOL HCL 200 MG TABLET (FP) PO SCH ×2 (09:14→21:51)
[2021-02-05] MEDS: CLOPIDOGREL BISULFATE 75 MG TABLET (FP) PO SCH (09:14)
[2021-02-05] MEDS: TAMSULOSIN HCL 0.4 MG CAP PO SCH (09:14)
[2021-02-05] MEDS ORDERED: ACETAMINOPHEN 1000 MG/100 ML VIAL (NON FORMULARY) IVPB ONE (10:45)
[2021-02-05] MEDS: ATORVASTATIN CA 80 MG TABLET (FP) PO SCH (21:46)
[2021-02-06] MEDS: oxyCODONE HCL 5 MG TABLET PO PRN ×2 (02:40→16:27)
[2021-02-06] MEDS: HEPARIN NA (PORCINE) 5,000 UNITS/ML 1ML VIAL SQ SCH ×3 (05:54→21:15)
[2021-02-06] MEDS: INSULIN (LEVEMIR) 100 UNITS/ML UNITS SQ SCH (05:59)
[2021-02-06] MEDS: INSULIN SLIDING SCALE (NOVOLOG) 1 VIAL SQ SCH ×3 (05:59→16:52)
[2021-02-06 07:14] LABS: BASO % 1.2 % (0-2.0); EOS % 1.6 % (0-4.5); HEMOGLOBIN 8.2 GM/dL (11.7-16.9); MCH 29.4 pg (25.7-33.7); MCHC 32.7 g/dl (32.0-35.9); MEAN CELL VOLUME 89.8 fl (80-96); MEAN PLT VOLUME 6.9 fl (7.5-11.1); MONO % 5.6 % (3.8-10.2); NEUT % 79.6 % (42.8-82.8); PLATELET COUNT 441 10^3/uL (134-434); RBC 2.79 M/mm3 (4.00-5.60); RDW 18.6 % (11.9-15.9); WHITE BLOOD COUNT 10.7 K/mm3 (4.0-10.0)
[2021-02-06 07:39] LABS: CHLORIDE 100 mmol/L (98-107); SODIUM 138 mmol/L (136-145)
[2021-02-06 07:45] LABS: ALBUMIN 2.3 g/dl (3.4-5.0); ANION GAP 9 MMOL/L (8-16); CO2 29 mmol/L (21-32); GLUCOSE,RANDOM 192 mg/dL (74-106); MAGNESIUM 1.9 mg/dL (1.8-2.4)
[2021-02-06 07:47] LABS: SGOT/AST 17 U/L (15-37); SGPT/ALT 20 U/L (13-61)
[2021-02-06 07:48] LABS: PHOSPHOROUS 4.5 mg/dL (2.5-4.9)
[2021-02-06 07:49] LABS: BILIRUBIN,TOTAL 0.6 mg/dL (0.2-1); TOT PROT 7.4 g/dl (6.4-8.2)
[2021-02-06 07:50] LABS: ALK PHOS 126 U/L (45-117)
[2021-02-06] MEDS ORDERED: EPOETIN ALFA-EPBX 20,000 UNIT/ML VIAL IVPUSH ONE (11:00)
[2021-02-06] MEDS ORDERED: ceFAZolin 2 GRAM PREMIX BAG IVPB ONE (11:00)
[2021-02-06] MEDS ORDERED: SODIUM CHLORIDE 250 ML IV PRN (11:00)
[2021-02-06] MEDS ORDERED: VANCOMYCIN 1 GM in D5W (PRE-DOCKED) 1,000 MG/250 ML IVPB ONE (11:00)
[2021-02-06] MEDS: CLOPIDOGREL BISULFATE 75 MG TABLET (FP) PO SCH (14:25)
[2021-02-06] MEDS: PANTOPRAZOLE 40 MG TABLET PO SCH (14:25)
[2021-02-06] MEDS: LISINOPRIL 20 MG TABLET PO SCH (14:25)
[2021-02-06] MEDS: NIFEdipine E.R 60 MG TABLET PO SCH (14:25)
[2021-02-06] MEDS: LABETALOL HCL 200 MG TABLET (FP) PO SCH ×2 (14:25→21:15)
[2021-02-06] MEDS: VITAMIN B COMP W-C 1 EA TABLET (NEPHRO-VITE) PO SCH (14:25)
[2021-02-06] MEDS: TAMSULOSIN HCL 0.4 MG CAP PO SCH (14:25)
[2021-02-06] MEDS: SODIUM HYPOCHLORITE 0.25%- 473 ML BULK BOTTLE TP SCH (14:28)
[2021-02-06] MEDS: ATORVASTATIN CA 80 MG TABLET (FP) PO SCH (21:16)
[2021-02-06] MEDS ORDERED: INSULIN (LEVEMIR) 100 UNITS/ML UNITS SQ SCH (22:00)
[2021-02-07] MEDS: oxyCODONE HCL 5 MG TABLET PO PRN (01:19)
[2021-02-07] MEDS: HEPARIN NA (PORCINE) 5,000 UNITS/ML 1ML VIAL SQ SCH (06:27)
[2021-02-07] MEDS: INSULIN (LEVEMIR) 100 UNITS/ML UNITS SQ SCH (06:28)
[2021-02-07] MEDS: INSULIN SLIDING SCALE (NOVOLOG) 1 VIAL SQ SCH ×2 (06:28→11:33)
[2021-02-07] MEDS: VITAMIN B COMP W-C 1 EA TABLET (NEPHRO-VITE) PO SCH (10:22)
[2021-02-07] MEDS: PANTOPRAZOLE 40 MG TABLET PO SCH (10:22)
[2021-02-07] MEDS: LISINOPRIL 20 MG TABLET PO SCH (10:22)
[2021-02-07] MEDS: LABETALOL HCL 200 MG TABLET (FP) PO SCH (10:22)
[2021-02-07] MEDS: CLOPIDOGREL BISULFATE 75 MG TABLET (FP) PO SCH (10:22)
[2021-02-07] MEDS: NIFEdipine E.R 60 MG TABLET PO SCH (10:22)
[2021-02-07] MEDS: TAMSULOSIN HCL 0.4 MG CAP PO SCH (10:22)
[2021-02-07 13:33] VITALS: BP 115/62; PULSE 79; TEMP 98.9
== END 2021-02-07 14:36 | disposition home health service (06) | DRG 853 ==
LOC: JER 15:32 → JERBED 18:21 → J4W 22:27 → JERBED 01-26 21:34 → J4S 01-26 21:36 → J7W 02-04 19:22
PROVIDERS: ADMIT Internal Medicine; ATTEND Internal Medicine
PROC: 0QTN0ZZ Resection of Right Metatarsal, Open Approach (ICD-10-PCS; 2021-01-24)
PROC: 3E0102A Introduction of Anti-Infective Envelope into Subcutaneous Tissue, Open Approach (ICD-10-PCS; 2021-01-24)
PROC: 0Y6M0Z8 Detachment at Right Foot, Complete 5th Ray, Open Approach (ICD-10-PCS; principal; 2021-01-24 18:39)
PROC: 5A1D70Z Performance of Urinary Filtration, Intermittent, Less than 6 Hours Per Day (ICD-10-PCS; 2021-01-26)
PROC: 0JBQ0ZZ Excision of Right Foot Subcutaneous Tissue and Fascia, Open Approach (ICD-10-PCS; 2021-01-30)
PROC: B41DYZZ Fluoroscopy of Aorta and Bilateral Lower Extremity Arteries using Other Contrast (ICD-10-PCS; 2021-02-01)
PROC: B40FYZZ Plain Radiography of Right Lower Extremity Arteries using Other Contrast (ICD-10-PCS; 2021-02-01)
DX: A41.9 Sepsis, unspecified organism (principal); N18.6 End stage renal disease; A48.0 Gas gangrene; M72.6 Necrotizing fasciitis; I13.2 Hypertensive heart and chronic kidney disease with heart failure and with stage 5 chronic kidney disease, or end stage renal disease; I50.32 Chronic diastolic (congestive) heart failure; E11.52 Type 2 diabetes mellitus with diabetic peripheral angiopathy with gangrene; M86.171 Other acute osteomyelitis, right ankle and foot; I25.10 Atherosclerotic heart disease of native coronary artery without angina pectoris; E11.22 Type 2 diabetes mellitus with diabetic chronic kidney disease; Z99.2 Dependence on renal dialysis; E11.40 Type 2 diabetes mellitus with diabetic neuropathy, unspecified; Z89.422 Acquired absence of other left toe(s); I16.0 Hypertensive urgency; L97.529 Non-pressure chronic ulcer of other part of left foot with unspecified severity; L97.519 Non-pressure chronic ulcer of other part of right foot with unspecified severity; D63.1 Anemia in chronic kidney disease; Z86.16 Personal history of COVID-19; E11.69 Type 2 diabetes mellitus with other specified complication
CPT/HCPCS: 36415; 36430; 36511; 70450-TC; 71045-TC-FY; 73630-TC-RT-FY; 75635-TC; 76000-TC-FY; 80048; 80053; 82248; 82728; 82962; 83605; 83615; 83735; 84100; 84484; 85025; 85027; 85610; 85730; 86140; 86317; 86704; 86705; 86706; 86708; 86803; 86850; 86900; 86901; 86922; 87040; 87070; 87076; 87186; 87205; 87324; 87340; 87449; 87516; 87517; 87804; 88305-TC; 88311-TC; 93005; 93010; 93306-TC; 94760; 99285-25; C9803; G0480; J0131; J1644; P9038; P9058; Q5106; Q9967; U0003; U0005

== ENCOUNTER 2021-02-15 19:47 | Emergency (ER) | payer OTHER ==
[2021-02-15 19:56] VITALS: TEMP 98.6; BMI 25.4
[2021-02-15 21:23] LABS: BASO % 0.8 % (0-2.0); EOS % 2.9 % (0-4.5); HEMATOCRIT 25.6 % (35.4-49); HEMOGLOBIN 8.4 GM/dL (11.7-16.9); LYMPH % 8.5 % (8-40); MCH 28.8 pg (25.7-33.7); MCHC 32.6 g/dl (32.0-35.9); MEAN CELL VOLUME 88.3 fl (80-96); MEAN PLT VOLUME 6.8 fl (7.5-11.1); MONO % 9.6 % (3.8-10.2); NEUT % 78.2 % (42.8-82.8); PLATELET COUNT 407 10^3/uL (134-434); RBC 2.91 M/mm3 (4.00-5.60); RDW 17.8 % (11.9-15.9); WHITE BLOOD COUNT 9.2 K/mm3 (4.0-10.0)
[2021-02-15 21:42] LABS: CALCIUM 8.4 mg/dL (8.5-10.1)
[2021-02-15 21:43] LABS: ALBUMIN 2.7 g/dl (3.4-5.0); BLOOD UREA NITROGEN 25.9 mg/dL (7-18)
[2021-02-15 21:46] LABS: CREATININE 4.7 mg/dL (0.55-1.3)
[2021-02-15 21:48] LABS: BILIRUBIN,TOTAL 0.7 mg/dL (0.2-1); TOT PROT 8.6 g/dl (6.4-8.2)
[2021-02-15 22:09] VITALS: BP 180/71; PULSE 88
== END 2021-02-15 22:14 | disposition home or self-care (01) ==
LOC: JER 19:47
DX: S91.301D Unspecified open wound, right foot, subsequent encounter (principal)
CPT/HCPCS: 36415; 80053; 85025; 99283-25

== ENCOUNTER 2021-02-22 19:59 | Inpatient (IN) | payer OTHER ==
[2021-02-22] MEDS ORDERED: ACETAMINOPHEN 500 MG TABLET (FP) PO ONE (21:18)
[2021-02-22] MEDS ORDERED: ACETAMINOPHEN 325 MG TABLET (FP) ONE (21:29)
[2021-02-22] MEDS ORDERED: PIPERACILLIN/TAZOB 3.375 GM 3.375 GM in DEXTROSE 5%-WATER - 50 ML IVPB ONE (21:56)
[2021-02-22] MEDS ORDERED: VANCOMYCIN 1 GM in D5W (PRE-DOCKED) 1,000 MG/250 ML IVPB ONE (21:57)
[2021-02-22] MEDS ORDERED: CLINDAMYCIN 900 MG PREMIX IVPB 900 MG/50 ML BAG IVPB ONE ×2 (21:58→22:55)
[2021-02-22] MEDS ORDERED: PIPERACILLIN/TAZOB 3.375 GM 3.375 GM/50 ML BAG IVPB ONE (22:55)
[2021-02-22] MEDS ORDERED: VANCOMYCIN 1 GRAM (PRE-DOCKED) 1,000 MG/250 ML BAG IVPB ONE (23:11)
[2021-02-22 23:16] LABS: BASO % 0.6 % (0-2.0); EOS % 1.9 % (0-4.5); HEMATOCRIT 23.9 % (35.4-49); HEMOGLOBIN 7.7 GM/dL (11.7-16.9); LYMPH % 6.7 % (8-40); MCH 28.5 pg (25.7-33.7); MCHC 32.1 g/dl (32.0-35.9); MEAN CELL VOLUME 88.8 fl (80-96); MONO % 6.6 % (3.8-10.2); NEUT % 84.2 % (42.8-82.8); PLATELET COUNT 397 10^3/uL (134-434); RBC 2.69 M/mm3 (4.00-5.60); RDW 18.3 % (11.9-15.9); WHITE BLOOD COUNT 11.4 K/mm3 (4.0-10.0)
[2021-02-22 23:19] LABS: INR 1.45 (0.83-1.09); PROTHROMBIN TIME (PATIENT) 17.6 SEC (9.7-13.0)
[2021-02-22 23:21] LABS: ACTIVATED PTT 29.1 SECONDS (25.2-36.5)
[2021-02-22 23:38] LABS: BLOOD UREA NITROGEN 23.7 mg/dL (7-18); CALCIUM 8.2 mg/dL (8.5-10.1)
[2021-02-22 23:39] LABS: ALBUMIN 2.5 g/dl (3.4-5.0)
[2021-02-22 23:42] LABS: CREATININE 4.1 mg/dL (0.55-1.3)
[2021-02-22 23:43] LABS: BILIRUBIN,TOTAL 0.5 mg/dL (0.2-1)
[2021-02-23] MEDS ORDERED: morphine CARPU-JECT 2 MG/1 ML DISP.SYRIN IVPUSH ONE (01:26)
[2021-02-23] MEDS ORDERED: MORPHINE SULFATE 2 MG/ML VIAL ONE ×2 (01:33→10:12)
[2021-02-23] MEDS: HEPARIN NA (PORCINE) 5,000 UNITS/ML 1ML VIAL SQ SCH ×4 (06:56→21:21)
[2021-02-23 07:24] LABS: HEMATOCRIT 22.8 % (35.4-49); HEMOGLOBIN 7.4 GM/dL (11.7-16.9); MCH 28.9 pg (25.7-33.7); MCHC 32.3 g/dl (32.0-35.9); MEAN CELL VOLUME 89.4 fl (80-96); PLATELET COUNT 367 10^3/uL (134-434); RBC 2.55 M/mm3 (4.00-5.60); RDW 18.2 % (11.9-15.9); WHITE BLOOD COUNT 9.3 K/mm3 (4.0-10.0)
[2021-02-23 07:44] LABS: ALBUMIN 2.2 g/dl (3.4-5.0); BLOOD UREA NITROGEN 27.4 mg/dL (7-18); CALCIUM 7.6 mg/dL (8.5-10.1); MAGNESIUM 1.9 mg/dL (1.8-2.4)
[2021-02-23 07:47] LABS: CREATININE 4.6 mg/dL (0.55-1.3); PHOSPHOROUS 3.7 mg/dL (2.5-4.9)
[2021-02-23 07:49] LABS: BILIRUBIN,TOTAL 0.5 mg/dL (0.2-1); TOT PROT 6.9 g/dl (6.4-8.2)
[2021-02-23] MEDS: INSULIN SLIDING SCALE (NOVOLOG) 1 VIAL SQ SCH ×4 (09:24→21:23)
[2021-02-23] MEDS ORDERED: PIPERACILLIN/TAZOB 2.25 GM 2.25 GM in DEXTROSE 5%-WATER - 50 ML IVPB ONE (09:30)
[2021-02-23] MEDS ORDERED: NIFEdipine E.R. 30 MG TABLET ONE (09:42)
[2021-02-23] MEDS ORDERED: LISINOPRIL 20 MG TABLET ONE (09:42)
[2021-02-23] MEDS ORDERED: CLOPIDOGREL BISULFATE 75 MG TABLET (FP) ONE (09:43)
[2021-02-23] MEDS ORDERED: PT OWN MED DRAWER 7, Y5N ONE (09:43)
[2021-02-23] MEDS ORDERED: PIPERACILLIN/TAZOB 2.25 GM 2.25 GM/50 ML BAG IVPB ONE (09:43)
[2021-02-23] MEDS: NIFEdipine E.R 60 MG TABLET PO SCH (10:10)
[2021-02-23] MEDS: LABETALOL HCL 200 MG TABLET (FP) PO SCH ×2 (10:10→21:21)
[2021-02-23] MEDS: LISINOPRIL 20 MG TABLET PO SCH (10:10)
[2021-02-23] MEDS: CLOPIDOGREL BISULFATE 75 MG TABLET (FP) PO SCH (10:10)
[2021-02-23] MEDS: MORPHINE SULFATE 2 MG/ML VIAL IVPUSH PRN ×2 (10:20→21:29)
[2021-02-23] MEDS ORDERED: SODIUM CHLORIDE 250 ML IV PRN (12:50)
[2021-02-23] MEDS ORDERED: DEXTROSE 5%-WATER - 50 ML IVPB ONE (16:41)
[2021-02-23] MEDS ORDERED: PIPERACILLIN/TAZOBACTAM 2.25 GM VIAL IVPB ONE ×2 (16:41→16:42)
[2021-02-23] MEDS: PIPERACILLIN/TAZOB 2.25 GM 2.25 GM in DEXTROSE 5%-WATER - 50 ML IVPB SCH (17:05)
[2021-02-23 18:03] VITALS: BMI 27.3
[2021-02-23] MEDS: ATORVASTATIN CA 80 MG TABLET (FP) PO SCH (21:21)
[2021-02-24] MEDS ORDERED: PIPERACILLIN/TAZOBACTAM 2.25 GM VIAL IVPB ONE ×3 (01:25→21:24)
[2021-02-24] MEDS ORDERED: DEXTROSE 5%-WATER - 50 ML IVPB ONE ×3 (01:25→21:24)
[2021-02-24] MEDS: PIPERACILLIN/TAZOB 2.25 GM 2.25 GM in DEXTROSE 5%-WATER - 50 ML IVPB SCH ×3 (01:33→21:31)
[2021-02-24] MEDS: INSULIN SLIDING SCALE (NOVOLOG) 1 VIAL SQ SCH ×4 (06:11→21:41)
[2021-02-24] MEDS: HEPARIN NA (PORCINE) 5,000 UNITS/ML 1ML VIAL SQ SCH ×3 (06:11→21:34)
[2021-02-24] MEDS ORDERED: VANCOMYCIN 1 GM PREMIX - 200 ML IVPB ONE (08:00)
[2021-02-24 09:29] LABS: EOS % 2.5 % (0-4.5); HEMATOCRIT 23.2 % (35.4-49); HEMOGLOBIN 7.5 GM/dL (11.7-16.9); LYMPH % 10.3 % (8-40); MCH 29.3 pg (25.7-33.7); MCHC 32.5 g/dl (32.0-35.9); MEAN CELL VOLUME 90.1 fl (80-96); MONO % 9.3 % (3.8-10.2); NEUT % 76.9 % (42.8-82.8); PLATELET COUNT 394 10^3/uL (134-434); RBC 2.57 M/mm3 (4.00-5.60); RDW 18.2 % (11.9-15.9); WHITE BLOOD COUNT 8.6 K/mm3 (4.0-10.0)
[2021-02-24] MEDS: CLOPIDOGREL BISULFATE 75 MG TABLET (FP) PO SCH (10:13)
[2021-02-24] MEDS: MORPHINE SULFATE 2 MG/ML VIAL IVPUSH PRN ×3 (10:13→20:16)
[2021-02-24] MEDS ORDERED: EPOETIN ALFA-EPBX 20,000 UNIT/ML VIAL IVPUSH ONE (12:15)
[2021-02-24 13:00] LABS: CHLORIDE 101 mmol/L (98-107); SODIUM 135 mmol/L (136-145)
[2021-02-24 13:02] LABS: CALCIUM 7.5 mg/dL (8.5-10.1)
[2021-02-24 13:03] LABS: ALBUMIN 2.1 g/dl (3.4-5.0); ANION GAP 10 MMOL/L (8-16); BLOOD UREA NITROGEN 49.4 mg/dL (7-18); CO2 24 mmol/L (21-32); GLUCOSE,RANDOM 177 mg/dL (74-106)
[2021-02-24 13:06] LABS: PHOSPHOROUS 5.4 mg/dL (2.5-4.9); SGOT/AST 18 U/L (15-37)
[2021-02-24 13:07] LABS: BILIRUBIN,TOTAL 0.4 mg/dL (0.2-1); TOT PROT 6.8 g/dl (6.4-8.2)
[2021-02-24 13:09] LABS: ALK PHOS 126 U/L (45-117); SGPT/ALT < 6 U/L (13-61)
[2021-02-24] MEDS: LISINOPRIL 20 MG TABLET PO SCH (15:48)
[2021-02-24] MEDS: NIFEdipine E.R 60 MG TABLET PO SCH (15:49)
[2021-02-24] MEDS: LABETALOL HCL 200 MG TABLET (FP) PO SCH ×2 (15:49→21:30)
[2021-02-24] MEDS: ATORVASTATIN CA 80 MG TABLET (FP) PO SCH (21:30)
[2021-02-25] MEDS: MORPHINE SULFATE 2 MG/ML VIAL IVPUSH PRN ×4 (00:02→22:36)
[2021-02-25] MEDS ORDERED: DEXTROSE 5%-WATER - 50 ML IVPB ONE ×3 (04:13→17:04)
[2021-02-25] MEDS ORDERED: PIPERACILLIN/TAZOBACTAM 2.25 GM VIAL IVPB ONE ×3 (04:13→17:04)
[2021-02-25] MEDS: PIPERACILLIN/TAZOB 2.25 GM 2.25 GM in DEXTROSE 5%-WATER - 50 ML IVPB SCH ×3 (04:16→18:18)
[2021-02-25] MEDS: HEPARIN NA (PORCINE) 5,000 UNITS/ML 1ML VIAL SQ SCH ×3 (06:01→22:34)
[2021-02-25] MEDS: INSULIN SLIDING SCALE (NOVOLOG) 1 VIAL SQ SCH ×4 (06:06→22:34)
[2021-02-25] MEDS: CLOPIDOGREL BISULFATE 75 MG TABLET (FP) PO SCH (11:34)
[2021-02-25] MEDS: LISINOPRIL 20 MG TABLET PO SCH (11:34)
[2021-02-25] MEDS: LABETALOL HCL 200 MG TABLET (FP) PO SCH ×2 (11:34→22:34)
[2021-02-25] MEDS: NIFEdipine E.R 60 MG TABLET PO SCH (11:34)
[2021-02-25] MEDS: ATORVASTATIN CA 80 MG TABLET (FP) PO SCH (22:34)
[2021-02-26] MEDS ORDERED: DEXTROSE 5%-WATER - 50 ML IVPB ONE ×3 (01:34→17:16)
[2021-02-26] MEDS ORDERED: PIPERACILLIN/TAZOBACTAM 2.25 GM VIAL IVPB ONE ×3 (01:34→17:16)
[2021-02-26] MEDS: PIPERACILLIN/TAZOB 2.25 GM 2.25 GM in DEXTROSE 5%-WATER - 50 ML IVPB SCH ×3 (01:59→17:59)
[2021-02-26] MEDS: INSULIN SLIDING SCALE (NOVOLOG) 1 VIAL SQ SCH ×4 (06:05→21:56)
[2021-02-26] MEDS: HEPARIN NA (PORCINE) 5,000 UNITS/ML 1ML VIAL SQ SCH ×3 (06:05→21:57)
[2021-02-26] MEDS: CLOPIDOGREL BISULFATE 75 MG TABLET (FP) PO SCH (10:04)
[2021-02-26] MEDS: LISINOPRIL 20 MG TABLET PO SCH (10:04)
[2021-02-26] MEDS: LABETALOL HCL 200 MG TABLET (FP) PO SCH ×2 (10:04→21:55)
[2021-02-26] MEDS: NIFEdipine E.R 60 MG TABLET PO SCH (10:04)
[2021-02-26] MEDS ORDERED: SODIUM CHLORIDE 250 ML IV PRN (12:09)
[2021-02-26 15:54] LABS: EOS % 2.2 % (0-4.5); HEMATOCRIT 22.9 % (35.4-49); HEMOGLOBIN 7.3 GM/dL (11.7-16.9); LYMPH % 11.9 % (8-40); MCH 28.8 pg (25.7-33.7); MCHC 31.8 g/dl (32.0-35.9); MEAN CELL VOLUME 90.5 fl (80-96); MONO % 7.2 % (3.8-10.2); NEUT % 77.7 % (42.8-82.8); PLATELET COUNT 359 10^3/uL (134-434); RBC 2.53 M/mm3 (4.00-5.60); RDW 18.7 % (11.9-15.9); WHITE BLOOD COUNT 8.3 K/mm3 (4.0-10.0)
[2021-02-26] MEDS: oxyCODONE HCL 5 MG TABLET PO PRN ×2 (15:57→22:03)
[2021-02-26 16:05] LABS: CHLORIDE 100 mmol/L (98-107); SODIUM 138 mmol/L (136-145)
[2021-02-26 16:07] LABS: CALCIUM 7.6 mg/dL (8.5-10.1)
[2021-02-26 16:08] LABS: ALBUMIN 2.1 g/dl (3.4-5.0); ANION GAP 10 MMOL/L (8-16); BLOOD UREA NITROGEN 62.2 mg/dL (7-18); CO2 28 mmol/L (21-32); GLUCOSE,RANDOM 157 mg/dL (74-106)
[2021-02-26 16:11] LABS: SGOT/AST 13 U/L (15-37); SGPT/ALT 6 U/L (13-61)
[2021-02-26 16:13] LABS: BILIRUBIN,TOTAL 1.1 mg/dL (0.2-1)
[2021-02-26 16:14] LABS: ALK PHOS 130 U/L (45-117)
[2021-02-26 16:18] LABS: CREATININE 8.2 mg/dL (0.55-1.3)
[2021-02-26] MEDS: ATORVASTATIN CA 80 MG TABLET (FP) PO SCH (21:55)
[2021-02-27] MEDS ORDERED: PIPERACILLIN/TAZOBACTAM 2.25 GM VIAL IVPB ONE ×5 (01:08→17:11)
[2021-02-27] MEDS ORDERED: DEXTROSE 5%-WATER - 50 ML IVPB ONE ×4 (01:09→17:09)
[2021-02-27] MEDS: PIPERACILLIN/TAZOB 2.25 GM 2.25 GM in DEXTROSE 5%-WATER - 50 ML IVPB SCH ×3 (01:46→18:17)
[2021-02-27] MEDS: INSULIN SLIDING SCALE (NOVOLOG) 1 VIAL SQ SCH ×4 (06:40→21:59)
[2021-02-27] MEDS: HEPARIN NA (PORCINE) 5,000 UNITS/ML 1ML VIAL SQ SCH ×3 (06:41→22:00)
[2021-02-27] MEDS: oxyCODONE HCL 5 MG TABLET PO PRN ×3 (09:38→23:17)
[2021-02-27] MEDS ORDERED: EPOETIN ALFA-EPBX 20,000 UNIT/ML VIAL IVPUSH ONE (10:30)
[2021-02-27 11:00] LABS: HEMATOCRIT 21.1 % (35.4-49); MCH 29.6 pg (25.7-33.7); MCHC 32.9 g/dl (32.0-35.9); MEAN CELL VOLUME 89.8 fl (80-96); PLATELET COUNT 348 10^3/uL (134-434); RBC 2.35 M/mm3 (4.00-5.60); RDW 18.7 % (11.9-15.9); WHITE BLOOD COUNT 8.5 K/mm3 (4.0-10.0)
[2021-02-27 11:21] LABS: CHLORIDE 100 mmol/L (98-107); SODIUM 138 mmol/L (136-145)
[2021-02-27 11:23] LABS: ALBUMIN 2.1 g/dl (3.4-5.0); ANION GAP 12 MMOL/L (8-16); CALCIUM 7.6 mg/dL (8.5-10.1); CO2 26 mmol/L (21-32)
[2021-02-27 11:24] LABS: GLUCOSE,RANDOM 187 mg/dL (74-106)
[2021-02-27 11:27] LABS: PHOSPHOROUS 6.3 mg/dL (2.5-4.9); SGOT/AST 15 U/L (15-37); SGPT/ALT 7 U/L (13-61)
[2021-02-27 11:28] LABS: BILIRUBIN,TOTAL 0.5 mg/dL (0.2-1); TOT PROT 7.1 g/dl (6.4-8.2)
[2021-02-27 11:29] LABS: ALK PHOS 122 U/L (45-117); CREATININE 9.4 mg/dL (0.55-1.3)
[2021-02-27] MEDS: LISINOPRIL 20 MG TABLET PO SCH (15:22)
[2021-02-27] MEDS: NIFEdipine E.R 60 MG TABLET PO SCH (15:23)
[2021-02-27] MEDS: CLOPIDOGREL BISULFATE 75 MG TABLET (FP) PO SCH (15:23)
[2021-02-27] MEDS: LABETALOL HCL 200 MG TABLET (FP) PO SCH (15:26)
[2021-02-27] MEDS: diphenhydrAMINE HCL 25 MG CAPSULE (FP) PO PRN (15:28)
[2021-02-27] MEDS: ATORVASTATIN CA 80 MG TABLET (FP) PO SCH (22:00)
[2021-02-28] MEDS: LABETALOL HCL 200 MG TABLET (FP) PO SCH ×3 (00:45→22:11)
[2021-02-28] MEDS ORDERED: PIPERACILLIN/TAZOBACTAM 2.25 GM VIAL IVPB ONE ×3 (01:05→17:00)
[2021-02-28] MEDS ORDERED: DEXTROSE 5%-WATER - 50 ML IVPB ONE ×3 (01:05→17:00)
[2021-02-28] MEDS: PIPERACILLIN/TAZOB 2.25 GM 2.25 GM in DEXTROSE 5%-WATER - 50 ML IVPB SCH ×3 (01:23→17:54)
[2021-02-28] MEDS: INSULIN SLIDING SCALE (NOVOLOG) 1 VIAL SQ SCH ×4 (06:10→22:39)
[2021-02-28] MEDS: oxyCODONE HCL 5 MG TABLET PO PRN ×3 (06:19→22:11)
[2021-02-28] MEDS: HEPARIN NA (PORCINE) 5,000 UNITS/ML 1ML VIAL SQ SCH ×3 (06:20→22:10)
[2021-02-28] MEDS: LISINOPRIL 20 MG TABLET PO SCH (09:56)
[2021-02-28] MEDS: CLOPIDOGREL BISULFATE 75 MG TABLET (FP) PO SCH (09:56)
[2021-02-28] MEDS: NIFEdipine E.R 60 MG TABLET PO SCH (09:56)
[2021-02-28 10:41] LABS: EOS % 2.3 % (0-4.5); HEMATOCRIT 23.6 % (35.4-49); HEMOGLOBIN 7.5 GM/dL (11.7-16.9); LYMPH % 12.4 % (8-40); MCH 28.8 pg (25.7-33.7); MCHC 31.8 g/dl (32.0-35.9); MEAN CELL VOLUME 90.6 fl (80-96); MEAN PLT VOLUME 6.9 fl (7.5-11.1); MONO % 8.1 % (3.8-10.2); NEUT % 76.2 % (42.8-82.8); PLATELET COUNT 371 10^3/uL (134-434); RBC 2.61 M/mm3 (4.00-5.60); RDW 18.8 % (11.9-15.9); WHITE BLOOD COUNT 8.4 K/mm3 (4.0-10.0)
[2021-02-28 11:09] LABS: ALBUMIN 2.2 g/dl (3.4-5.0)
[2021-02-28 11:10] LABS: CALCIUM 7.6 mg/dL (8.5-10.1)
[2021-02-28 11:13] LABS: BILIRUBIN,TOTAL 0.5 mg/dL (0.2-1); CREATININE 6.4 mg/dL (0.55-1.3); TOT PROT 7.2 g/dl (6.4-8.2)
[2021-02-28 11:37] LABS: BLOOD UREA NITROGEN 44.2 mg/dL (7-18)
[2021-02-28] MEDS: ATORVASTATIN CA 80 MG TABLET (FP) PO SCH (22:11)
[2021-03-01] MEDS ORDERED: PIPERACILLIN/TAZOBACTAM 2.25 GM VIAL IVPB ONE ×3 (01:53→17:52)
[2021-03-01] MEDS ORDERED: DEXTROSE 5%-WATER - 50 ML IVPB ONE ×3 (01:53→17:53)
[2021-03-01] MEDS: PIPERACILLIN/TAZOB 2.25 GM 2.25 GM in DEXTROSE 5%-WATER - 50 ML IVPB SCH ×3 (02:07→18:00)
[2021-03-01] MEDS: oxyCODONE HCL 5 MG TABLET PO PRN ×4 (03:42→16:22)
[2021-03-01] MEDS: diphenhydrAMINE HCL 25 MG CAPSULE (FP) PO PRN (03:45)
[2021-03-01] MEDS ORDERED: PT OWN MED DRAWER 7, Y5N ONE ×2 (05:25→05:41)
[2021-03-01] MEDS: INSULIN SLIDING SCALE (NOVOLOG) 1 VIAL SQ SCH ×3 (06:18→16:57)
[2021-03-01] MEDS: HEPARIN NA (PORCINE) 5,000 UNITS/ML 1ML VIAL SQ SCH ×2 (06:19→16:23)
[2021-03-01] MEDS ORDERED: SODIUM CHLORIDE 250 ML IV PRN (10:26)
[2021-03-01 10:47] LABS: HEMATOCRIT 21.9 % (35.4-49); HEMOGLOBIN 7.1 GM/dL (11.7-16.9); MCH 29.3 pg (25.7-33.7); MCHC 32.5 g/dl (32.0-35.9); MEAN CELL VOLUME 90.2 fl (80-96); MEAN PLT VOLUME 7.2 fl (7.5-11.1); PLATELET COUNT 340 10^3/uL (134-434); RBC 2.43 M/mm3 (4.00-5.60); RDW 18.6 % (11.9-15.9); WHITE BLOOD COUNT 8.9 K/mm3 (4.0-10.0)
[2021-03-01] MEDS ORDERED: EPOETIN ALFA-EPBX 20,000 UNIT/ML VIAL IVPUSH ONE (11:00)
[2021-03-01 11:04] LABS: CHLORIDE 98 mmol/L (98-107); SODIUM 137 mmol/L (136-145)
[2021-03-01 11:05] LABS: CALCIUM 7.8 mg/dL (8.5-10.1)
[2021-03-01 11:06] LABS: ANION GAP 11 MMOL/L (8-16); BLOOD UREA NITROGEN 64.2 mg/dL (7-18); CO2 28 mmol/L (21-32); GLUCOSE,RANDOM 234 mg/dL (74-106)
[2021-03-01 11:09] LABS: CREATININE 8.2 mg/dL (0.55-1.3); PHOSPHOROUS 5.4 mg/dL (2.5-4.9)
[2021-03-01] MEDS: CLOPIDOGREL BISULFATE 75 MG TABLET (FP) PO SCH (12:45)
[2021-03-01] MEDS: LABETALOL HCL 200 MG TABLET (FP) PO SCH (12:45)
[2021-03-01] MEDS: LISINOPRIL 20 MG TABLET PO SCH (12:45)
[2021-03-01] MEDS: NIFEdipine E.R 60 MG TABLET PO SCH (12:45)
[2021-03-01] MEDS ORDERED: NIFEdipine E.R. 30 MG TABLET PO ONE (15:38)
[2021-03-01 20:24] VITALS: BP 152/69; PULSE 71; TEMP 98.3
[2021-03-01] MEDS ORDERED: LABETALOL HCL 100 MG TABLET (FP) PO SCH (22:00)
[2021-03-02] MEDS ORDERED: NIFEdipine E.R. 90 MG TABLET PO SCH (10:00)
== END 2021-03-01 20:13 | disposition home or self-care (01) | DRG 871 ==
LOC: JER 19:59 → JERBED 02-23 02:33 → J5S 02-23 15:10
PROVIDERS: ADMIT Internal Medicine
PROC: 5A1D70Z Performance of Urinary Filtration, Intermittent, Less than 6 Hours Per Day (ICD-10-PCS; principal; 2021-03-01)
DX: A41.9 Sepsis, unspecified organism (principal); N18.6 End stage renal disease; M72.6 Necrotizing fasciitis; L03.115 Cellulitis of right lower limb; E11.52 Type 2 diabetes mellitus with diabetic peripheral angiopathy with gangrene; I50.32 Chronic diastolic (congestive) heart failure; I13.2 Hypertensive heart and chronic kidney disease with heart failure and with stage 5 chronic kidney disease, or end stage renal disease; I96 Gangrene, not elsewhere classified; E11.22 Type 2 diabetes mellitus with diabetic chronic kidney disease; Z99.2 Dependence on renal dialysis; I25.10 Atherosclerotic heart disease of native coronary artery without angina pectoris; Z98.61 Coronary angioplasty status; N40.0 Benign prostatic hyperplasia without lower urinary tract symptoms; D72.829 Elevated white blood cell count, unspecified; R00.1 Bradycardia, unspecified; D63.1 Anemia in chronic kidney disease
CPT/HCPCS: 11042; 36415; 71045-TC-FY; 73030-TC-RT-FY; 73700-TC-RT; 80048; 80053; 82550; 82962; 83036; 83540; 83550; 83605; 83735; 84100; 84484; 85025; 85027; 85610; 85651; 85730; 86140; 86803; 86850; 86900; 86901; 87040; 87340; 87804; 93005; 93010; 93306-TC; 97605; 99285-25; C9803; G0480; J1644; U0003; U0005

== ENCOUNTER 2021-03-13 15:07 | Inpatient (IN) | payer OTHER ==
[2021-03-13] MEDS ORDERED: ACETAMINOPHEN 1000 MG/100 ML VIAL (NON FORMULARY) IVPB ONE (16:00)
[2021-03-13] MEDS ORDERED: VANCOMYCIN 1 GM in D5W (PRE-DOCKED) 1,000 MG/250 ML IVPB ONE (16:04)
[2021-03-13] MEDS ORDERED: PIPERACILLIN/TAZOB 2.25 GM 2.25 GM in DEXTROSE 5%-WATER - 50 ML IVPB ONE (16:05)
[2021-03-13] MEDS ORDERED: ACETAMINOPHEN INJECTION 100 ML IVPB ONE (16:08)
[2021-03-13] MEDS ORDERED: PIPERACILLIN/TAZOB 2.25 GM 2.25 GM/50 ML BAG IVPB ONE ×2 (16:08→21:52)
[2021-03-13] MEDS ORDERED: VANCOMYCIN 1 GRAM (PRE-DOCKED) 1,000 MG/250 ML BAG IVPB ONE (16:08)
[2021-03-13 16:52] LABS: BASO % 0.4 % (0-2.0); EOS % 0.5 % (0-4.5); HEMATOCRIT 24.2 % (35.4-49); HEMOGLOBIN 7.9 GM/dL (11.7-16.9); LYMPH % 3.3 % (8-40); MCH 29.2 pg (25.7-33.7); MCHC 32.6 g/dl (32.0-35.9); MEAN CELL VOLUME 89.4 fl (80-96); MEAN PLT VOLUME 7.2 fl (7.5-11.1); MONO % 5.6 % (3.8-10.2); NEUT % 90.2 % (42.8-82.8); PLATELET COUNT 456 10^3/uL (134-434); RDW 17.8 % (11.9-15.9); WHITE BLOOD COUNT 10.5 K/mm3 (4.0-10.0)
[2021-03-13 16:53] LABS: INR 1.44 (0.83-1.09); PROTHROMBIN TIME (PATIENT) 17.2 SEC (9.7-13.0)
[2021-03-13 16:56] LABS: ACTIVATED PTT 27.9 SECONDS (25.2-36.5)
[2021-03-13 17:06] LABS: CHLORIDE 101 mmol/L (98-107); SODIUM 135 mmol/L (136-145)
[2021-03-13 17:08] LABS: CALCIUM 8.4 mg/dL (8.5-10.1)
[2021-03-13 17:09] LABS: ALBUMIN 2.4 g/dl (3.4-5.0); ANION GAP 10 MMOL/L (8-16); BLOOD UREA NITROGEN 55.3 mg/dL (7-18); CO2 23 mmol/L (21-32); GLUCOSE,RANDOM 128 mg/dL (74-106)
[2021-03-13 17:12] LABS: CREATININE 7.2 mg/dL (0.55-1.3); SGOT/AST 26 U/L (15-37); SGPT/ALT < 6 U/L (13-61)
[2021-03-13 17:14] LABS: BILIRUBIN,TOTAL 0.6 mg/dL (0.2-1); TOT PROT 8.2 g/dl (6.4-8.2)
[2021-03-13 17:15] LABS: ALK PHOS 149 U/L (45-117)
[2021-03-13 17:31] LABS: MAGNESIUM 1.7 mg/dL (1.8-2.4)
[2021-03-13 17:35] LABS: PHOSPHOROUS 2.8 mg/dL (2.5-4.9)
[2021-03-13 17:53] LABS: LACTIC ACID 4.3 mmol/L (0.4-2.0)
[2021-03-13] MEDS ORDERED: SODIUM CHLORIDE 250 ML IV STA (18:54)
[2021-03-13] MEDS ORDERED: CLINDAMYCIN 600MG PREMIX IVPB 600 MG/50 ML BAG IVPB ONE (21:52)
[2021-03-13] MEDS: PIPERACILLIN/TAZOB 2.25 GM 2.25 GM in DEXTROSE 5%-WATER - 50 ML IVPB SCH (21:53)
[2021-03-13] MEDS: CLINDAMYCIN 600MG PREMIX IVPB 600 MG/50 ML BAG IVPB SCH (23:31)
[2021-03-13] MEDS ORDERED: HEPARIN NA (PORCINE) 5,000 UNITS/ML 1ML VIAL ONE (23:33)
[2021-03-13] MEDS: HEPARIN NA (PORCINE) 5,000 UNITS/ML 1ML VIAL SQ SCH (23:43)
[2021-03-13] MEDS: INSULIN SLIDING SCALE (NOVOLOG) 1 VIAL SQ SCH (23:43)
[2021-03-14] MEDS: CLINDAMYCIN 600MG PREMIX IVPB 600 MG/50 ML BAG IVPB SCH ×2 (03:14→09:12)
[2021-03-14 04:35] VITALS: BMI 27.2
[2021-03-14] MEDS: HEPARIN NA (PORCINE) 5,000 UNITS/ML 1ML VIAL SQ SCH ×3 (06:07→21:51)
[2021-03-14] MEDS: INSULIN SLIDING SCALE (NOVOLOG) 1 VIAL SQ SCH ×4 (06:13→21:56)
[2021-03-14] MEDS: INSULIN (LEVEMIR) 100 UNITS/ML UNITS SQ SCH (06:54)
[2021-03-14 07:11] LABS: EOS % 2.3 % (0-4.5); HEMATOCRIT 20.6 % (35.4-49); LYMPH % 11.1 % (8-40); MCH 29.2 pg (25.7-33.7); MCHC 32.9 g/dl (32.0-35.9); MEAN CELL VOLUME 88.5 fl (80-96); MEAN PLT VOLUME 7.4 fl (7.5-11.1); MONO % 12.1 % (3.8-10.2); NEUT % 73.5 % (42.8-82.8); PLATELET COUNT 354 10^3/uL (134-434); RBC 2.32 M/mm3 (4.00-5.60); RDW 17.2 % (11.9-15.9); WHITE BLOOD COUNT 7.2 K/mm3 (4.0-10.0)
[2021-03-14 07:17] LABS: INR 1.45 (0.83-1.09); PROTHROMBIN TIME (PATIENT) 17.4 SEC (9.7-13.0)
[2021-03-14 07:19] LABS: ACTIVATED PTT 27.7 SECONDS (25.2-36.5)
[2021-03-14 07:25] LABS: HEMOGLOBIN 6.8 GM/dL (11.7-16.9)
[2021-03-14 07:34] LABS: CHLORIDE 101 mmol/L (98-107); SODIUM 136 mmol/L (136-145)
[2021-03-14 07:39] LABS: CALCIUM 8.1 mg/dL (8.5-10.1)
[2021-03-14 07:40] LABS: ANION GAP 8 MMOL/L (8-16); BLOOD UREA NITROGEN 62.1 mg/dL (7-18); CO2 26 mmol/L (21-32); GLUCOSE,RANDOM 134 mg/dL (74-106)
[2021-03-14 07:43] LABS: SGOT/AST 24 U/L (15-37)
[2021-03-14 07:44] LABS: PHOSPHOROUS 3.9 mg/dL (2.5-4.9)
[2021-03-14 07:45] LABS: TOT PROT 7.2 g/dl (6.4-8.2)
[2021-03-14 07:46] LABS: ALK PHOS 130 U/L (45-117)
[2021-03-14 07:48] LABS: BILIRUBIN,TOTAL 0.5 mg/dL (0.2-1)
[2021-03-14 08:48] LABS: SGPT/ALT < 6 U/L (13-61)
[2021-03-14] MEDS ORDERED: PIPERACILLIN/TAZOBACTAM 2.25 GM VIAL IVPB ONE ×3 (09:09→23:24)
[2021-03-14] MEDS ORDERED: DEXTROSE 5%-WATER - 50 ML IVPB ONE ×3 (09:09→23:25)
[2021-03-14] MEDS: CLOPIDOGREL BISULFATE 75 MG TABLET (FP) PO SCH (09:13)
[2021-03-14] MEDS: PIPERACILLIN/TAZOB 2.25 GM 2.25 GM in DEXTROSE 5%-WATER - 50 ML IVPB SCH ×3 (10:13→18:56)
[2021-03-14] MEDS ORDERED: SODIUM CHLORIDE 250 ML IV PRN (13:34)
[2021-03-14] MEDS ORDERED: EPOETIN ALFA-EPBX 20,000 UNIT/ML VIAL IVPUSH ONE (14:00)
[2021-03-14] MEDS ORDERED: VANCOMYCIN 1 GRAM (PRE-DOCKED) 1,000 MG/250 ML BAG IVPB ONE (15:01)
[2021-03-14] MEDS: CLINDAMYCIN 900 MG PREMIX IVPB 900 MG/50 ML BAG IVPB SCH (18:09)
[2021-03-14] MEDS ORDERED: ATORVASTATIN CA 80 MG TABLET (FP) PO SCH (22:00)
[2021-03-14] MEDS ORDERED: guaiFENesin/D-M SUGAR-FREE/ACLHOL-FREE 118 ML BOTTLE PO ONE (23:52)
[2021-03-15] MEDS ORDERED: ACETAMINOPHEN 1000 MG/100 ML VIAL (NON FORMULARY) IVPB ONE (00:36)
[2021-03-15] MEDS: PIPERACILLIN/TAZOB 2.25 GM 2.25 GM in DEXTROSE 5%-WATER - 50 ML IVPB SCH ×3 (01:03→18:00)
[2021-03-15] MEDS: CLINDAMYCIN 900 MG PREMIX IVPB 900 MG/50 ML BAG IVPB SCH ×3 (02:17→18:00)
[2021-03-15] MEDS: INSULIN (LEVEMIR) 100 UNITS/ML UNITS SQ SCH (06:26)
[2021-03-15] MEDS: HEPARIN NA (PORCINE) 5,000 UNITS/ML 1ML VIAL SQ SCH ×3 (06:26→21:38)
[2021-03-15] MEDS: INSULIN SLIDING SCALE (NOVOLOG) 1 VIAL SQ SCH ×4 (06:27→21:38)
[2021-03-15 07:42] LABS: HEMATOCRIT 27.1 % (35.4-49); HEMOGLOBIN 9.1 GM/dL (11.7-16.9); MCH 29.6 pg (25.7-33.7); MCHC 33.7 g/dl (32.0-35.9); MEAN CELL VOLUME 87.9 fl (80-96); MEAN PLT VOLUME 7.2 fl (7.5-11.1); PLATELET COUNT 363 10^3/uL (134-434); RBC 3.09 M/mm3 (4.00-5.60); RDW 17.2 % (11.9-15.9); WHITE BLOOD COUNT 8.6 K/mm3 (4.0-10.0)
[2021-03-15 08:03] LABS: CHLORIDE 100 mmol/L (98-107); SODIUM 137 mmol/L (136-145)
[2021-03-15 08:09] LABS: CALCIUM 7.6 mg/dL (8.5-10.1)
[2021-03-15 08:10] LABS: ANION GAP 6 MMOL/L (8-16); BLOOD UREA NITROGEN 38.8 mg/dL (7-18); CO2 31 mmol/L (21-32); CREATININE 5.5 mg/dL (0.55-1.3); GLUCOSE,RANDOM 165 mg/dL (74-106); MAGNESIUM 1.9 mg/dL (1.8-2.4)
[2021-03-15 08:13] LABS: PHOSPHOROUS 3.4 mg/dL (2.5-4.9); SGOT/AST 28 U/L (15-37)
[2021-03-15 08:14] LABS: TOT PROT 7.3 g/dl (6.4-8.2)
[2021-03-15 08:16] LABS: ALK PHOS 149 U/L (45-117); BILIRUBIN,TOTAL 0.6 mg/dL (0.2-1); SGPT/ALT < 6 U/L (13-61)
[2021-03-15] MEDS ORDERED: PIPERACILLIN/TAZOBACTAM 2.25 GM VIAL IVPB ONE ×2 (08:54→17:58)
[2021-03-15] MEDS ORDERED: DEXTROSE 5%-WATER - 50 ML IVPB ONE ×2 (08:54→17:58)
[2021-03-15] MEDS ORDERED: LIDOCAINE HCL/PF 2% SDV 5ML VIAL ONE (10:23)
[2021-03-15] MEDS ORDERED: PROPOFOL 20 ML ONE ×3 (10:23)
[2021-03-15] MEDS ORDERED: MIDAZOLAM HCL 2 MG/2 ML SINGLE DOSE VIAL ONE (10:24)
[2021-03-15] MEDS ORDERED: LIDOCAINE HCL 2% (50ML VIAL) INF ONE (11:06)
[2021-03-15] MEDS: CLOPIDOGREL BISULFATE 75 MG TABLET (FP) PO SCH ×2 (11:48→15:01)
[2021-03-15] MEDS ORDERED: SODIUM CHLORIDE 250 ML IV PRN (12:35)
[2021-03-15] MEDS ORDERED: ONDANSETRON 4 MG/2 ML VIAL IVPUSH PRN (12:57)
[2021-03-15] MEDS ORDERED: LACTATED RINGERS SOLUTION 1,000 ML IV SCH (13:00)
[2021-03-15] MEDS ORDERED: NIFEdipine E.R 60 MG TABLET PO SCH ×2 (14:30→17:23)
[2021-03-15] MEDS: oxyCODONE HCL 5 MG TABLET PO PRN ×2 (15:06→21:39)
[2021-03-15] MEDS ORDERED: NIFEdipine E.R. 30 MG TABLET PO ONE (17:30)
[2021-03-15] MEDS: DOCUSATE SODIUM 100 MG CAPSULE (FP) PO SCH (21:37)
[2021-03-15] MEDS: ATORVASTATIN CA 80 MG TABLET (FP) PO SCH (21:38)
[2021-03-16] MEDS ORDERED: MELATONIN 5 MG TABLETS PO ONE (01:05)
[2021-03-16] MEDS: CLINDAMYCIN 900 MG PREMIX IVPB 900 MG/50 ML BAG IVPB SCH ×3 (01:08→17:38)
[2021-03-16] MEDS ORDERED: DEXTROSE 5%-WATER - 50 ML IVPB ONE ×3 (01:37→17:02)
[2021-03-16] MEDS ORDERED: PIPERACILLIN/TAZOBACTAM 2.25 GM VIAL IVPB ONE ×3 (01:37→17:01)
[2021-03-16] MEDS: oxyCODONE HCL 5 MG TABLET PO PRN ×3 (02:04→21:14)
[2021-03-16] MEDS: PIPERACILLIN/TAZOB 2.25 GM 2.25 GM in DEXTROSE 5%-WATER - 50 ML IVPB SCH ×3 (02:04→17:03)
[2021-03-16] MEDS: INSULIN SLIDING SCALE (NOVOLOG) 1 VIAL SQ SCH ×4 (06:19→21:15)
[2021-03-16] MEDS: HEPARIN NA (PORCINE) 5,000 UNITS/ML 1ML VIAL SQ SCH ×3 (06:19→21:14)
[2021-03-16] MEDS: INSULIN (LEVEMIR) 100 UNITS/ML UNITS SQ SCH (06:19)
[2021-03-16 08:38] LABS: HEMATOCRIT 24.5 % (35.4-49); HEMOGLOBIN 8.3 GM/dL (11.7-16.9); MCH 29.5 pg (25.7-33.7); MCHC 33.8 g/dl (32.0-35.9); MEAN CELL VOLUME 87.5 fl (80-96); MEAN PLT VOLUME 7.1 fl (7.5-11.1); PLATELET COUNT 361 10^3/uL (134-434); RDW 16.9 % (11.9-15.9); WHITE BLOOD COUNT 8.3 K/mm3 (4.0-10.0)
[2021-03-16 08:51] LABS: CHLORIDE 98 mmol/L (98-107); SODIUM 136 mmol/L (136-145)
[2021-03-16 08:53] LABS: CALCIUM 7.4 mg/dL (8.5-10.1)
[2021-03-16 08:54] LABS: ALBUMIN 1.8 g/dl (3.4-5.0); ANION GAP 7 MMOL/L (8-16); BLOOD UREA NITROGEN 50.2 mg/dL (7-18); CO2 30 mmol/L (21-32); GLUCOSE,RANDOM 119 mg/dL (74-106)
[2021-03-16 08:57] LABS: CREATININE 7.2 mg/dL (0.55-1.3); SGOT/AST 19 U/L (15-37)
[2021-03-16 08:59] LABS: BILIRUBIN,TOTAL 0.5 mg/dL (0.2-1); TOT PROT 6.8 g/dl (6.4-8.2)
[2021-03-16 09:00] LABS: ALK PHOS 125 U/L (45-117)
[2021-03-16 09:38] LABS: SGPT/ALT < 6 U/L (13-61)
[2021-03-16] MEDS: CLOPIDOGREL BISULFATE 75 MG TABLET (FP) PO SCH (10:09)
[2021-03-16] MEDS: NIFEdipine E.R. 90 MG TABLET PO SCH (10:09)
[2021-03-16] MEDS: DOCUSATE SODIUM 100 MG CAPSULE (FP) PO SCH (21:14)
[2021-03-16] MEDS: ATORVASTATIN CA 80 MG TABLET (FP) PO SCH (21:14)
[2021-03-17] MEDS: CLINDAMYCIN 900 MG PREMIX IVPB 900 MG/50 ML BAG IVPB SCH ×3 (01:25→17:53)
[2021-03-17] MEDS ORDERED: DEXTROSE 5%-WATER - 50 ML IVPB ONE ×3 (01:30→17:43)
[2021-03-17] MEDS ORDERED: PIPERACILLIN/TAZOBACTAM 2.25 GM VIAL IVPB ONE ×3 (01:30→17:43)
[2021-03-17] MEDS: PIPERACILLIN/TAZOB 2.25 GM 2.25 GM in DEXTROSE 5%-WATER - 50 ML IVPB SCH ×3 (02:03→17:53)
[2021-03-17] MEDS: HEPARIN NA (PORCINE) 5,000 UNITS/ML 1ML VIAL SQ SCH ×3 (06:48→22:05)
[2021-03-17] MEDS: INSULIN (LEVEMIR) 100 UNITS/ML UNITS SQ SCH (06:49)
[2021-03-17] MEDS: INSULIN SLIDING SCALE (NOVOLOG) 1 VIAL SQ SCH ×4 (06:49→22:07)
[2021-03-17] MEDS: CLOPIDOGREL BISULFATE 75 MG TABLET (FP) PO SCH (10:08)
[2021-03-17] MEDS: oxyCODONE HCL 5 MG TABLET PO PRN ×3 (10:24→22:07)
[2021-03-17] MEDS ORDERED: SODIUM CHLORIDE 250 ML IV PRN (11:02)
[2021-03-17] MEDS ORDERED: EPOETIN ALFA-EPBX 20,000 UNIT/ML VIAL IVPUSH ONE (12:00)
[2021-03-17 12:04] LABS: HEMATOCRIT 23.2 % (35.4-49); HEMOGLOBIN 7.8 GM/dL (11.7-16.9); MCH 29.3 pg (25.7-33.7); MCHC 33.7 g/dl (32.0-35.9); MEAN PLT VOLUME 6.7 fl (7.5-11.1); PLATELET COUNT 341 10^3/uL (134-434); RBC 2.67 M/mm3 (4.00-5.60); RDW 16.8 % (11.9-15.9); WHITE BLOOD COUNT 7.7 K/mm3 (4.0-10.0)
[2021-03-17 12:29] LABS: CHLORIDE 98 mmol/L (98-107); SODIUM 135 mmol/L (136-145)
[2021-03-17 12:33] LABS: CALCIUM 7.2 mg/dL (8.5-10.1); GLUCOSE,RANDOM 175 mg/dL (74-106)
[2021-03-17 12:34] LABS: ANION GAP 9 MMOL/L (8-16); BLOOD UREA NITROGEN 62.4 mg/dL (7-18); CO2 27 mmol/L (21-32)
[2021-03-17 12:37] LABS: PHOSPHOROUS 5.4 mg/dL (2.5-4.9)
[2021-03-17] MEDS: NIFEdipine E.R. 90 MG TABLET PO SCH (15:39)
[2021-03-17] MEDS: ATORVASTATIN CA 80 MG TABLET (FP) PO SCH (22:05)
[2021-03-17] MEDS: DOCUSATE SODIUM 100 MG CAPSULE (FP) PO SCH (22:05)
[2021-03-18] MEDS ORDERED: PIPERACILLIN/TAZOBACTAM 2.25 GM VIAL IVPB ONE ×3 (01:16→16:54)
[2021-03-18] MEDS ORDERED: DEXTROSE 5%-WATER - 50 ML IVPB ONE ×3 (01:17→16:54)
[2021-03-18] MEDS: CLINDAMYCIN 900 MG PREMIX IVPB 900 MG/50 ML BAG IVPB SCH ×3 (01:35→17:28)
[2021-03-18] MEDS: PIPERACILLIN/TAZOB 2.25 GM 2.25 GM in DEXTROSE 5%-WATER - 50 ML IVPB SCH ×3 (02:20→17:57)
[2021-03-18] MEDS: oxyCODONE HCL 5 MG TABLET PO PRN ×4 (03:05→21:38)
[2021-03-18] MEDS: INSULIN SLIDING SCALE (NOVOLOG) 1 VIAL SQ SCH ×4 (06:06→21:39)
[2021-03-18] MEDS: HEPARIN NA (PORCINE) 5,000 UNITS/ML 1ML VIAL SQ SCH ×3 (06:23→21:39)
[2021-03-18] MEDS: INSULIN (LEVEMIR) 100 UNITS/ML UNITS SQ SCH (06:24)
[2021-03-18 07:42] LABS: HEMATOCRIT 25.4 % (35.4-49); HEMOGLOBIN 8.5 GM/dL (11.7-16.9); MCH 29.3 pg (25.7-33.7); MCHC 33.3 g/dl (32.0-35.9); MEAN PLT VOLUME 7.2 fl (7.5-11.1); PLATELET COUNT 383 10^3/uL (134-434); RBC 2.89 M/mm3 (4.00-5.60); RDW 16.7 % (11.9-15.9); WHITE BLOOD COUNT 9.6 K/mm3 (4.0-10.0)
[2021-03-18 07:49] LABS: CALCIUM 7.5 mg/dL (8.5-10.1)
[2021-03-18 07:50] LABS: BLOOD UREA NITROGEN 42.9 mg/dL (7-18)
[2021-03-18 07:53] LABS: CREATININE 6.4 mg/dL (0.55-1.3)
[2021-03-18] MEDS: NIFEdipine E.R. 90 MG TABLET PO SCH (10:06)
[2021-03-18] MEDS: CLOPIDOGREL BISULFATE 75 MG TABLET (FP) PO SCH (10:07)
[2021-03-18] MEDS: ATORVASTATIN CA 80 MG TABLET (FP) PO SCH (21:39)
[2021-03-18] MEDS: DOCUSATE SODIUM 100 MG CAPSULE (FP) PO SCH (21:39)
[2021-03-19] MEDS ORDERED: PIPERACILLIN/TAZOBACTAM 2.25 GM VIAL IVPB ONE ×3 (01:14→17:58)
[2021-03-19] MEDS ORDERED: DEXTROSE 5%-WATER - 50 ML IVPB ONE ×3 (01:14→17:59)
[2021-03-19] MEDS: CLINDAMYCIN 900 MG PREMIX IVPB 900 MG/50 ML BAG IVPB SCH ×2 (01:17→09:52)
[2021-03-19] MEDS: PIPERACILLIN/TAZOB 2.25 GM 2.25 GM in DEXTROSE 5%-WATER - 50 ML IVPB SCH ×3 (02:11→18:10)
[2021-03-19] MEDS: HEPARIN NA (PORCINE) 5,000 UNITS/ML 1ML VIAL SQ SCH ×3 (06:24→22:00)
[2021-03-19] MEDS: INSULIN SLIDING SCALE (NOVOLOG) 1 VIAL SQ SCH ×4 (06:24→22:05)
[2021-03-19] MEDS: INSULIN (LEVEMIR) 100 UNITS/ML UNITS SQ SCH (06:24)
[2021-03-19 08:19] LABS: CHLORIDE 99 mmol/L (98-107); INR 1.34 (0.83-1.09); PROTHROMBIN TIME (PATIENT) 16.1 SEC (9.7-13.0); SODIUM 137 mmol/L (136-145)
[2021-03-19 08:24] LABS: HEMATOCRIT 27.6 % (35.4-49); HEMOGLOBIN 9.2 GM/dL (11.7-16.9); MCH 29.3 pg (25.7-33.7); MCHC 33.2 g/dl (32.0-35.9); MEAN CELL VOLUME 88.4 fl (80-96); MEAN PLT VOLUME 6.9 fl (7.5-11.1); PLATELET COUNT 389 10^3/uL (134-434); RBC 3.12 M/mm3 (4.00-5.60); WHITE BLOOD COUNT 8.9 K/mm3 (4.0-10.0)
[2021-03-19 08:35] LABS: CALCIUM 7.5 mg/dL (8.5-10.1)
[2021-03-19 08:36] LABS: ANION GAP 10 MMOL/L (8-16); CO2 28 mmol/L (21-32); GLUCOSE,RANDOM 168 mg/dL (74-106); MAGNESIUM 1.8 mg/dL (1.8-2.4)
[2021-03-19 08:40] LABS: CREATININE 8.2 mg/dL (0.55-1.3)
[2021-03-19] MEDS: NIFEdipine E.R. 90 MG TABLET PO SCH (09:52)
[2021-03-19] MEDS: CLOPIDOGREL BISULFATE 75 MG TABLET (FP) PO SCH (09:52)
[2021-03-19] MEDS: oxyCODONE HCL 5 MG TABLET PO PRN ×3 (10:33→23:33)
[2021-03-19] MEDS ORDERED: VANCOMYCIN 1 GRAM (PRE-DOCKED) 1,000 MG/250 ML BAG IVPB ONE (17:15)
[2021-03-19] MEDS: ATORVASTATIN CA 80 MG TABLET (FP) PO SCH (22:00)
[2021-03-19] MEDS: DOCUSATE SODIUM 100 MG CAPSULE (FP) PO SCH (22:02)
[2021-03-20] MEDS ORDERED: PIPERACILLIN/TAZOBACTAM 2.25 GM VIAL IVPB ONE ×3 (01:23→18:44)
[2021-03-20] MEDS ORDERED: DEXTROSE 5%-WATER - 50 ML IVPB ONE ×3 (01:23→18:44)
[2021-03-20] MEDS: PIPERACILLIN/TAZOB 2.25 GM 2.25 GM in DEXTROSE 5%-WATER - 50 ML IVPB SCH ×3 (01:27→18:52)
[2021-03-20] MEDS: INSULIN (LEVEMIR) 100 UNITS/ML UNITS SQ SCH (06:14)
[2021-03-20] MEDS: HEPARIN NA (PORCINE) 5,000 UNITS/ML 1ML VIAL SQ SCH ×3 (06:14→21:57)
[2021-03-20] MEDS: INSULIN SLIDING SCALE (NOVOLOG) 1 VIAL SQ SCH ×4 (06:18→21:58)
[2021-03-20] MEDS: oxyCODONE HCL 5 MG TABLET PO PRN ×3 (06:18→21:56)
[2021-03-20] MEDS ORDERED: SODIUM CHLORIDE 250 ML IV PRN (07:31)
[2021-03-20] MEDS ORDERED: EPOETIN ALFA-EPBX 20,000 UNIT/ML VIAL IVPUSH ONE (08:00)
[2021-03-20] MEDS: CLOPIDOGREL BISULFATE 75 MG TABLET (FP) PO SCH (14:46)
[2021-03-20] MEDS: NIFEdipine E.R. 90 MG TABLET PO SCH (14:47)
[2021-03-20 18:55] LABS: HEMATOCRIT 25.3 % (35.4-49); HEMOGLOBIN 8.3 GM/dL (11.7-16.9); MCHC 32.7 g/dl (32.0-35.9); MEAN CELL VOLUME 88.7 fl (80-96); PLATELET COUNT 398 10^3/uL (134-434); RBC 2.86 M/mm3 (4.00-5.60); RDW 17.4 % (11.9-15.9); WHITE BLOOD COUNT 12.1 K/mm3 (4.0-10.0)
[2021-03-20] MEDS ORDERED: hydrALAZINE HCL 25 MG TABLET (FP) PO SCH ×2 (19:00→22:00)
[2021-03-20 19:14] LABS: CHLORIDE 98 mmol/L (98-107); SODIUM 138 mmol/L (136-145)
[2021-03-20 19:17] LABS: ANION GAP 13 MMOL/L (8-16); BLOOD UREA NITROGEN 66.9 mg/dL (7-18); CALCIUM 7.1 mg/dL (8.5-10.1); CO2 26 mmol/L (21-32); GLUCOSE,RANDOM 104 mg/dL (74-106)
[2021-03-20 19:20] LABS: PHOSPHOROUS 6.4 mg/dL (2.5-4.9)
[2021-03-20 19:21] LABS: CREATININE 9.8 mg/dL (0.55-1.3)
[2021-03-20] MEDS: ATORVASTATIN CA 80 MG TABLET (FP) PO SCH (21:57)
[2021-03-20] MEDS: DOCUSATE SODIUM 100 MG CAPSULE (FP) PO SCH (21:57)
[2021-03-20] MEDS: LABETALOL HCL 200 MG TABLET (FP) PO SCH (21:57)
[2021-03-21] MEDS ORDERED: PIPERACILLIN/TAZOBACTAM 2.25 GM VIAL IVPB ONE ×3 (01:00→16:57)
[2021-03-21] MEDS ORDERED: DEXTROSE 5%-WATER - 50 ML IVPB ONE ×3 (01:01→16:57)
[2021-03-21] MEDS: PIPERACILLIN/TAZOB 2.25 GM 2.25 GM in DEXTROSE 5%-WATER - 50 ML IVPB SCH ×3 (01:05→17:05)
[2021-03-21] MEDS: INSULIN SLIDING SCALE (NOVOLOG) 1 VIAL SQ SCH ×3 (06:49→16:44)
[2021-03-21] MEDS: HEPARIN NA (PORCINE) 5,000 UNITS/ML 1ML VIAL SQ SCH ×2 (06:49→14:06)
[2021-03-21] MEDS: INSULIN (LEVEMIR) 100 UNITS/ML UNITS SQ SCH (06:49)
[2021-03-21 08:19] LABS: HEMATOCRIT 27.1 % (35.4-49); HEMOGLOBIN 8.9 GM/dL (11.7-16.9); MCH 29.1 pg (25.7-33.7); MCHC 32.9 g/dl (32.0-35.9); MEAN CELL VOLUME 88.5 fl (80-96); PLATELET COUNT 395 10^3/uL (134-434); RBC 3.06 M/mm3 (4.00-5.60)
[2021-03-21 08:46] LABS: CALCIUM 7.3 mg/dL (8.5-10.1)
[2021-03-21 08:50] LABS: BLOOD UREA NITROGEN 40.6 mg/dL (7-18); CREATININE 6.5 mg/dL (0.55-1.3)
[2021-03-21] MEDS: LABETALOL HCL 200 MG TABLET (FP) PO SCH (09:47)
[2021-03-21] MEDS: NIFEdipine E.R. 90 MG TABLET PO SCH (09:47)
[2021-03-21] MEDS: CLOPIDOGREL BISULFATE 75 MG TABLET (FP) PO SCH (09:48)
[2021-03-21] MEDS: oxyCODONE HCL 5 MG TABLET PO PRN ×2 (10:04→17:05)
[2021-03-21 14:18] VITALS: BP 128/63; PULSE 83; TEMP 98.2
== END 2021-03-21 22:14 | disposition home health service (06) | DRG 853 ==
LOC: JER 15:07 → JERBED 16:14 → J4S 03-14 02:37
PROVIDERS: ADMIT Internal Medicine; ATTEND Internal Medicine
PROC: 30233N1 Transfusion of Nonautologous Red Blood Cells into Peripheral Vein, Percutaneous Approach (ICD-10-PCS; 2021-03-14)
PROC: 0JBQ0ZZ Excision of Right Foot Subcutaneous Tissue and Fascia, Open Approach (ICD-10-PCS; 2021-03-15)
PROC: 0JDQ0ZZ Extraction of Right Foot Subcutaneous Tissue and Fascia, Open Approach (ICD-10-PCS; 2021-03-15)
PROC: 2W1SX6Z Compression of Right Foot using Pressure Dressing (ICD-10-PCS; 2021-03-15)
PROC: 0Y6V0Z0 Detachment at Right 4th Toe, Complete, Open Approach (ICD-10-PCS; principal; 2021-03-15 10:00)
PROC: 5A1D70Z Performance of Urinary Filtration, Intermittent, Less than 6 Hours Per Day (ICD-10-PCS; 2021-03-20)
DX: A41.59 Other Gram-negative sepsis (principal); N18.6 End stage renal disease; A48.0 Gas gangrene; I13.2 Hypertensive heart and chronic kidney disease with heart failure and with stage 5 chronic kidney disease, or end stage renal disease; E87.2 Acidosis; I50.32 Chronic diastolic (congestive) heart failure; E11.52 Type 2 diabetes mellitus with diabetic peripheral angiopathy with gangrene; M86.171 Other acute osteomyelitis, right ankle and foot; L97.519 Non-pressure chronic ulcer of other part of right foot with unspecified severity; E78.5 Hyperlipidemia, unspecified; I25.10 Atherosclerotic heart disease of native coronary artery without angina pectoris; Z98.61 Coronary angioplasty status; E87.5 Hyperkalemia; E11.69 Type 2 diabetes mellitus with other specified complication; R07.9 Chest pain, unspecified; E11.40 Type 2 diabetes mellitus with diabetic neuropathy, unspecified; D64.9 Anemia, unspecified; I16.0 Hypertensive urgency; E66.9 Obesity, unspecified; Z68.27 Body mass index [BMI] 27.0-27.9, adult; Z99.2 Dependence on renal dialysis
CPT/HCPCS: 36415; 36430; 36511; 70450-TC; 71045-TC-FY; 73700-TC-RT; 80048; 80053; 82272; 82962; 83605; 83735; 84100; 84484; 85025; 85027; 85610; 85730; 86850; 86900; 86901; 86922; 87040; 87070; 87075; 87186; 87205; 87804; 93005; 93010; 94760; 97116-GP; 97162-GP; 99285-25; C9803; G0480; J0131; J1644; P9016; P9058; U0003; U0005

== ENCOUNTER 2021-05-08 17:13 | Inpatient (IN) | payer OTHER ==
[2021-05-08 17:20] VITALS: BMI 25.9
[2021-05-08] MEDS ORDERED: ONDANSETRON 4 MG/2 ML VIAL IVPUSH ONE (18:44)
[2021-05-08] MEDS ORDERED: ONDANSETRON 4 MG/2 ML VIAL ONE ×2 (18:49→22:12)
[2021-05-08 21:06] LABS: BASO % 0.5 % (0-2.0); EOS % 1.1 % (0-4.5); HEMATOCRIT 28.9 % (35.4-49); HEMOGLOBIN 9.3 GM/dL (11.7-16.9); LYMPH % 7.1 % (8-40); MCH 27.6 pg (25.7-33.7); MCHC 32.3 g/dl (32.0-35.9); MEAN CELL VOLUME 85.3 fl (80-96); MEAN PLT VOLUME 7.1 fl (7.5-11.1); MONO % 5.3 % (3.8-10.2); PLATELET COUNT 294 10^3/uL (134-434); RBC 3.39 M/mm3 (4.00-5.60); RDW 17.5 % (11.9-15.9); WHITE BLOOD COUNT 7.4 K/mm3 (4.0-10.0)
[2021-05-08 21:16] LABS: INR 1.37 (0.83-1.09); PROTHROMBIN TIME (PATIENT) 15.4 SEC (9.7-13.0)
[2021-05-08 21:26] LABS: CHLORIDE 107 mmol/L (98-107); SODIUM 140 mmol/L (136-145)
[2021-05-08 21:28] LABS: CALCIUM 7.8 mg/dL (8.5-10.1)
[2021-05-08 21:29] LABS: ALBUMIN 2.6 g/dl (3.4-5.0); ANION GAP 16 MMOL/L (8-16); CO2 17 mmol/L (21-32); GLUCOSE,RANDOM 184 mg/dL (74-106); LIPASE 56 U/L (73-393)
[2021-05-08 21:32] LABS: MAGNESIUM 2.3 mg/dL (1.8-2.4); SGOT/AST 42 U/L (15-37); SGPT/ALT 49 U/L (13-61)
[2021-05-08 21:33] LABS: BILIRUBIN,TOTAL 0.5 mg/dL (0.2-1); TOT PROT 8.2 g/dl (6.4-8.2)
[2021-05-08 21:34] LABS: ALK PHOS 149 U/L (45-117)
[2021-05-08 22:05] LABS: BLOOD UREA NITROGEN 104.5 mg/dL (7-18)
[2021-05-08] MEDS ORDERED: CIPROFLOXACIN 400 MG/D5W 400 MG/200 ML IVPB IVPB ONE (22:09)
[2021-05-08] MEDS ORDERED: LABETALOL HCL 200 MG TABLET (FP) PO ONE (22:17)
[2021-05-08] MEDS ORDERED: LABETALOL HCL 100 MG TABLET (FP) ONE (22:27)
[2021-05-08] MEDS ORDERED: CEFTRIAXONE 1 GM in DEXTROSE 5%-WATER - 50 ML IVPB SCH (22:31)
[2021-05-08] MEDS ORDERED: ACETAMINOPHEN 1000 MG/100 ML VIAL IVPB PRN (22:49)
[2021-05-08] MEDS ORDERED: CEFTRIAXONE 1 GM/50 ML BAG ONE (23:16)
[2021-05-08 23:29] LABS: CHLORIDE 106 mmol/L (98-107); SODIUM 139 mmol/L (136-145)
[2021-05-08 23:30] LABS: ANION GAP 14 MMOL/L (8-16); CALCIUM 7.7 mg/dL (8.5-10.1); CO2 20 mmol/L (21-32)
[2021-05-08 23:31] LABS: BLOOD UREA NITROGEN 103.1 mg/dL (7-18); GLUCOSE,RANDOM 176 mg/dL (74-106)
[2021-05-08 23:38] LABS: CREATININE 11.3 mg/dL (0.55-1.3)
[2021-05-09] MEDS ORDERED: VANCOMYCIN/WATER BAGS 1,250 MG/250 ML BAG IVPB ONE ×2 (01:24→04:00)
[2021-05-09] MEDS ORDERED: PIPERACILLIN/TAZOB 2.25 GM 2.25 GM in DEXTROSE 5%-WATER - 50 ML IVPB ONE (03:00)
[2021-05-09] MEDS ORDERED: PIPERACILLIN/TAZOBACTAM 2.25 GM VIAL IVPB ONE ×2 (03:03→17:13)
[2021-05-09] MEDS ORDERED: DEXTROSE 5%-WATER - 50 ML IVPB ONE ×2 (03:04→17:13)
[2021-05-09] MEDS: INSULIN SLIDING SCALE (NOVOLOG) 1 VIAL SQ SCH ×4 (06:01→21:49)
[2021-05-09] MEDS: HEPARIN NA (PORCINE) 5,000 UNITS/ML 1ML VIAL SQ SCH ×3 (06:09→21:50)
[2021-05-09 07:02] LABS: BASO % 1.4 % (0-2.0); EOS % 1.8 % (0-4.5); HEMATOCRIT 24.6 % (35.4-49); HEMOGLOBIN 8.2 GM/dL (11.7-16.9); LYMPH % 11.1 % (8-40); MCH 27.9 pg (25.7-33.7); MCHC 33.5 g/dl (32.0-35.9); MEAN CELL VOLUME 83.3 fl (80-96); MEAN PLT VOLUME 6.9 fl (7.5-11.1); NEUT % 78.7 % (42.8-82.8); PLATELET COUNT 272 10^3/uL (134-434); RBC 2.95 M/mm3 (4.00-5.60); RDW 17.4 % (11.9-15.9); WHITE BLOOD COUNT 6.4 K/mm3 (4.0-10.0)
[2021-05-09 07:21] LABS: CHLORIDE 106 mmol/L (98-107); SODIUM 139 mmol/L (136-145)
[2021-05-09 07:25] LABS: ALBUMIN 2.3 g/dl (3.4-5.0); ANION GAP 17 MMOL/L (8-16); CALCIUM 7.4 mg/dL (8.5-10.1); CO2 16 mmol/L (21-32)
[2021-05-09 07:26] LABS: GLUCOSE,RANDOM 125 mg/dL (74-106); MAGNESIUM 2.2 mg/dL (1.8-2.4)
[2021-05-09 07:27] LABS: IRON SERUM 38 ug/dL (50-175)
[2021-05-09 07:28] LABS: SGOT/AST 19 U/L (15-37); SGPT/ALT 38 U/L (13-61); TOTAL IRON BINDING CAPACITY 161 ug/dL (250-450)
[2021-05-09 07:29] LABS: PHOSPHOROUS 7.9 mg/dL (2.5-4.9)
[2021-05-09 07:30] LABS: ALK PHOS 124 U/L (45-117); BILIRUBIN,TOTAL 0.6 mg/dL (0.2-1); CREATININE 11.4 mg/dL (0.55-1.3); TOT PROT 7.2 g/dl (6.4-8.2)
[2021-05-09] MEDS ORDERED: PIPERACILLIN/TAZOB 3.375 GM 3.375 GM in DEXTROSE 5%-WATER - 50 ML IVPB SCH (11:00)
[2021-05-09] MEDS ORDERED: SODIUM CHLORIDE 250 ML IV PRN (14:00)
[2021-05-09] MEDS ORDERED: EPOETIN ALFA-EPBX 20,000 UNIT/ML VIAL IVPUSH ONE (14:00)
[2021-05-09] MEDS: PIPERACILLIN/TAZOB 2.25 GM 2.25 GM in DEXTROSE 5%-WATER - 50 ML IVPB SCH (18:08)
[2021-05-10] MEDS ORDERED: PIPERACILLIN/TAZOBACTAM 2.25 GM VIAL IVPB ONE ×3 (01:34→16:47)
[2021-05-10] MEDS ORDERED: DEXTROSE 5%-WATER - 50 ML IVPB ONE ×3 (01:35→16:47)
[2021-05-10] MEDS: PIPERACILLIN/TAZOB 2.25 GM 2.25 GM in DEXTROSE 5%-WATER - 50 ML IVPB SCH ×3 (02:12→17:42)
[2021-05-10] MEDS: PROCHLORPERAZINE INJECTION 10 MG/2 ML VIAL IVPB PRN ×2 (02:26→15:17)
[2021-05-10] MEDS: HEPARIN NA (PORCINE) 5,000 UNITS/ML 1ML VIAL SQ SCH ×3 (06:07→21:19)
[2021-05-10] MEDS: INSULIN SLIDING SCALE (NOVOLOG) 1 VIAL SQ SCH ×4 (06:08→21:26)
[2021-05-10 07:36] LABS: HEMOGLOBIN 8.6 GM/dL (11.7-16.9); MCH 27.5 pg (25.7-33.7); MCHC 32.9 g/dl (32.0-35.9); MEAN CELL VOLUME 83.7 fl (80-96); MEAN PLT VOLUME 6.8 fl (7.5-11.1); PLATELET COUNT 286 10^3/uL (134-434); RBC 3.11 M/mm3 (4.00-5.60); RDW 17.1 % (11.9-15.9); WHITE BLOOD COUNT 6.2 K/mm3 (4.0-10.0)
[2021-05-10 08:13] LABS: ALBUMIN 2.4 g/dl (3.4-5.0); CALCIUM 7.1 mg/dL (8.5-10.1)
[2021-05-10 08:15] LABS: MAGNESIUM 1.9 mg/dL (1.8-2.4)
[2021-05-10 08:17] LABS: CREATININE 7.1 mg/dL (0.55-1.3); PHOSPHOROUS 4.7 mg/dL (2.5-4.9)
[2021-05-10 08:18] LABS: BILIRUBIN,TOTAL 0.7 mg/dL (0.2-1)
[2021-05-10] MEDS ORDERED: SODIUM CHLORIDE 250 ML IV PRN (08:18)
[2021-05-10 08:20] LABS: TOT PROT 7.1 g/dl (6.4-8.2)
[2021-05-10 08:29] LABS: BLOOD UREA NITROGEN 48.3 mg/dL (7-18)
[2021-05-10] MEDS ORDERED: FUROSEMIDE 40 MG/4 ML INJECTABLE VIAL IVPUSH ONE (11:15)
[2021-05-10] MEDS ORDERED: TAMSULOSIN HCL 0.4 MG CAP PO SCH (11:15)
[2021-05-10] MEDS: LABETALOL HCL 200 MG TABLET (FP) PO SCH ×2 (15:16→21:22)
[2021-05-10] MEDS: LISINOPRIL 20 MG TABLET PO SCH (15:16)
[2021-05-10] MEDS: TAMSULOSIN HCL 0.4 MG CAP PO SCH (15:16)
[2021-05-10] MEDS: NIFEdipine E.R 60 MG TABLET PO SCH (15:16)
[2021-05-11] MEDS ORDERED: DEXTROSE 5%-WATER - 50 ML IVPB ONE ×3 (01:12→18:05)
[2021-05-11] MEDS ORDERED: PIPERACILLIN/TAZOBACTAM 2.25 GM VIAL IVPB ONE ×3 (01:12→18:05)
[2021-05-11] MEDS: PIPERACILLIN/TAZOB 2.25 GM 2.25 GM in DEXTROSE 5%-WATER - 50 ML IVPB SCH ×3 (01:15→18:13)
[2021-05-11] MEDS: PROCHLORPERAZINE INJECTION 10 MG/2 ML VIAL IVPB PRN (01:15)
[2021-05-11] MEDS: HEPARIN NA (PORCINE) 5,000 UNITS/ML 1ML VIAL SQ SCH ×3 (05:38→21:23)
[2021-05-11] MEDS: INSULIN SLIDING SCALE (NOVOLOG) 1 VIAL SQ SCH ×4 (06:10→21:26)
[2021-05-11 07:59] LABS: HEMOGLOBIN 7.8 GM/dL (11.7-16.9); MCH 27.9 pg (25.7-33.7); MCHC 33.7 g/dl (32.0-35.9); MEAN CELL VOLUME 82.8 fl (80-96); MEAN PLT VOLUME 6.6 fl (7.5-11.1); PLATELET COUNT 278 10^3/uL (134-434); RBC 2.78 M/mm3 (4.00-5.60); RDW 17.3 % (11.9-15.9)
[2021-05-11 08:26] LABS: ALBUMIN 2.1 g/dl (3.4-5.0); BLOOD UREA NITROGEN 28.8 mg/dL (7-18); CALCIUM 7.5 mg/dL (8.5-10.1); MAGNESIUM 1.9 mg/dL (1.8-2.4)
[2021-05-11 08:30] LABS: CREATININE 5.6 mg/dL (0.55-1.3)
[2021-05-11 08:31] LABS: BILIRUBIN,TOTAL 1.1 mg/dL (0.2-1); TOT PROT 6.7 g/dl (6.4-8.2)
[2021-05-11] MEDS: TAMSULOSIN HCL 0.4 MG CAP PO SCH (09:11)
[2021-05-11] MEDS: LISINOPRIL 20 MG TABLET PO SCH (09:11)
[2021-05-11] MEDS: LABETALOL HCL 200 MG TABLET (FP) PO SCH ×2 (09:11→21:23)
[2021-05-11] MEDS: NIFEdipine E.R 60 MG TABLET PO SCH (09:11)
[2021-05-11] MEDS ORDERED: ACETAMINOPHEN 1000 MG/100 ML VIAL IVPB ONE (20:55)
[2021-05-11] MEDS ORDERED: oxyCODONE HCL 5 MG TABLET PO PRN (21:22)
[2021-05-12] MEDS ORDERED: PIPERACILLIN/TAZOBACTAM 2.25 GM VIAL IVPB ONE ×3 (00:58→17:02)
[2021-05-12] MEDS ORDERED: DEXTROSE 5%-WATER - 50 ML IVPB ONE ×3 (00:58→17:02)
[2021-05-12] MEDS: PIPERACILLIN/TAZOB 2.25 GM 2.25 GM in DEXTROSE 5%-WATER - 50 ML IVPB SCH ×3 (01:33→18:23)
[2021-05-12] MEDS: INSULIN SLIDING SCALE (NOVOLOG) 1 VIAL SQ SCH ×4 (06:25→21:26)
[2021-05-12] MEDS: HEPARIN NA (PORCINE) 5,000 UNITS/ML 1ML VIAL SQ SCH ×3 (06:30→21:25)
[2021-05-12] MEDS ORDERED: SODIUM CHLORIDE 250 ML IV PRN (08:00)
[2021-05-12] MEDS ORDERED: EPOETIN ALFA-EPBX 20,000 UNIT/ML VIAL IVPUSH ONE (08:00)
[2021-05-12] MEDS: TAMSULOSIN HCL 0.4 MG CAP PO SCH (08:49)
[2021-05-12 10:28] LABS: HEMATOCRIT 24.6 % (35.4-49); MCH 27.9 pg (25.7-33.7); MCHC 32.7 g/dl (32.0-35.9); MEAN CELL VOLUME 85.5 fl (80-96); MEAN PLT VOLUME 7.1 fl (7.5-11.1); PLATELET COUNT 296 10^3/uL (134-434); RBC 2.88 M/mm3 (4.00-5.60); RDW 17.1 % (11.9-15.9); WHITE BLOOD COUNT 7.1 K/mm3 (4.0-10.0)
[2021-05-12 10:52] LABS: CHLORIDE 100 mmol/L (98-107); SODIUM 138 mmol/L (136-145)
[2021-05-12 10:56] LABS: ANION GAP 10 MMOL/L (8-16); BLOOD UREA NITROGEN 44.6 mg/dL (7-18); CALCIUM 7.3 mg/dL (8.5-10.1); CO2 29 mmol/L (21-32); GLUCOSE,RANDOM 206 mg/dL (74-106)
[2021-05-12 10:59] LABS: CREATININE 7.5 mg/dL (0.55-1.3); PHOSPHOROUS 4.5 mg/dL (2.5-4.9)
[2021-05-12] MEDS: LISINOPRIL 20 MG TABLET PO SCH (13:25)
[2021-05-12] MEDS: NIFEdipine E.R 60 MG TABLET PO SCH (13:25)
[2021-05-12] MEDS: LABETALOL HCL 200 MG TABLET (FP) PO SCH ×2 (13:25→21:26)
[2021-05-13] MEDS ORDERED: PIPERACILLIN/TAZOBACTAM 2.25 GM VIAL IVPB ONE ×3 (01:28→18:20)
[2021-05-13] MEDS ORDERED: DEXTROSE 5%-WATER - 50 ML IVPB ONE ×3 (01:28→18:21)
[2021-05-13] MEDS: PIPERACILLIN/TAZOB 2.25 GM 2.25 GM in DEXTROSE 5%-WATER - 50 ML IVPB SCH ×3 (01:37→18:46)
[2021-05-13] MEDS: HEPARIN NA (PORCINE) 5,000 UNITS/ML 1ML VIAL SQ SCH ×3 (06:26→21:15)
[2021-05-13] MEDS: INSULIN SLIDING SCALE (NOVOLOG) 1 VIAL SQ SCH ×4 (06:26→21:15)
[2021-05-13] MEDS: TAMSULOSIN HCL 0.4 MG CAP PO SCH (09:54)
[2021-05-13] MEDS: LISINOPRIL 20 MG TABLET PO SCH (09:54)
[2021-05-13] MEDS: NIFEdipine E.R 60 MG TABLET PO SCH (09:54)
[2021-05-13] MEDS: LABETALOL HCL 200 MG TABLET (FP) PO SCH ×2 (09:54→21:15)
[2021-05-14] MEDS ORDERED: DEXTROSE 5%-WATER - 50 ML IVPB ONE ×3 (02:19→18:25)
[2021-05-14] MEDS ORDERED: PIPERACILLIN/TAZOBACTAM 2.25 GM VIAL IVPB ONE ×3 (02:19→18:25)
[2021-05-14] MEDS: PIPERACILLIN/TAZOB 2.25 GM 2.25 GM in DEXTROSE 5%-WATER - 50 ML IVPB SCH ×3 (02:44→18:48)
[2021-05-14] MEDS: HEPARIN NA (PORCINE) 5,000 UNITS/ML 1ML VIAL SQ SCH ×3 (05:47→21:35)
[2021-05-14] MEDS: INSULIN SLIDING SCALE (NOVOLOG) 1 VIAL SQ SCH ×4 (06:03→21:37)
[2021-05-14 07:05] LABS: HEMATOCRIT 25.4 % (35.4-49); HEMOGLOBIN 8.3 GM/dL (11.7-16.9); MCH 28.2 pg (25.7-33.7); MCHC 32.6 g/dl (32.0-35.9); MEAN CELL VOLUME 86.5 fl (80-96); MEAN PLT VOLUME 6.6 fl (7.5-11.1); PLATELET COUNT 282 10^3/uL (134-434); RBC 2.94 M/mm3 (4.00-5.60); RDW 17.5 % (11.9-15.9); WHITE BLOOD COUNT 7.7 K/mm3 (4.0-10.0)
[2021-05-14 07:28] LABS: BLOOD UREA NITROGEN 36.8 mg/dL (7-18); CALCIUM 7.4 mg/dL (8.5-10.1)
[2021-05-14 07:32] LABS: CREATININE 6.6 mg/dL (0.55-1.3)
[2021-05-14] MEDS: LABETALOL HCL 200 MG TABLET (FP) PO SCH ×2 (09:11→21:38)
[2021-05-14] MEDS: NIFEdipine E.R 60 MG TABLET PO SCH (09:11)
[2021-05-14] MEDS: LISINOPRIL 20 MG TABLET PO SCH (09:11)
[2021-05-14] MEDS: TAMSULOSIN HCL 0.4 MG CAP PO SCH (09:11)
[2021-05-15] MEDS ORDERED: PIPERACILLIN/TAZOBACTAM 2.25 GM VIAL IVPB ONE ×2 (01:11→15:27)
[2021-05-15] MEDS ORDERED: DEXTROSE 5%-WATER - 50 ML IVPB ONE ×2 (01:12→15:27)
[2021-05-15] MEDS: PIPERACILLIN/TAZOB 2.25 GM 2.25 GM in DEXTROSE 5%-WATER - 50 ML IVPB SCH ×2 (01:23→16:46)
[2021-05-15] MEDS: HEPARIN NA (PORCINE) 5,000 UNITS/ML 1ML VIAL SQ SCH ×2 (06:05→16:46)
[2021-05-15] MEDS: INSULIN SLIDING SCALE (NOVOLOG) 1 VIAL SQ SCH ×2 (06:12→11:00)
[2021-05-15 09:40] LABS: HEMATOCRIT 25.6 % (35.4-49); HEMOGLOBIN 8.3 GM/dL (11.7-16.9); MCH 28.3 pg (25.7-33.7); MCHC 32.5 g/dl (32.0-35.9); MEAN CELL VOLUME 87.1 fl (80-96); PLATELET COUNT 311 10^3/uL (134-434); RBC 2.94 M/mm3 (4.00-5.60); RDW 17.7 % (11.9-15.9); WHITE BLOOD COUNT 6.7 K/mm3 (4.0-10.0)
[2021-05-15] MEDS ORDERED: SODIUM CHLORIDE 250 ML IV PRN (09:47)
[2021-05-15 10:01] LABS: CALCIUM 7.6 mg/dL (8.5-10.1); CHLORIDE 103 mmol/L (98-107); SODIUM 139 mmol/L (136-145)
[2021-05-15 10:02] LABS: ANION GAP 10 MMOL/L (8-16); BLOOD UREA NITROGEN 46.5 mg/dL (7-18); CO2 26 mmol/L (21-32); GLUCOSE,RANDOM 179 mg/dL (74-106)
[2021-05-15 10:09] LABS: CREATININE 8.2 mg/dL (0.55-1.3)
[2021-05-15] MEDS ORDERED: EPOETIN ALFA-EPBX 20,000 UNIT/ML VIAL IVPUSH ONE (11:00)
[2021-05-15] MEDS: NIFEdipine E.R 60 MG TABLET PO SCH (16:43)
[2021-05-15] MEDS: TAMSULOSIN HCL 0.4 MG CAP PO SCH (16:43)
[2021-05-15] MEDS: LISINOPRIL 20 MG TABLET PO SCH (16:43)
[2021-05-15] MEDS: LABETALOL HCL 200 MG TABLET (FP) PO SCH (16:44)
[2021-05-15 16:48] VITALS: BP 202/98; PULSE 87; TEMP 98.3
== END 2021-05-15 18:20 | disposition home or self-care (01) | DRG 391 ==
LOC: JER 17:13 → JERBED 22:10 → J4S 05-09 00:23
PROVIDERS: ADMIT Internal Medicine
PROC: 5A1D70Z Performance of Urinary Filtration, Intermittent, Less than 6 Hours Per Day (ICD-10-PCS; principal; 2021-05-12)
PROC: 5A1D70Z Performance of Urinary Filtration, Intermittent, Less than 6 Hours Per Day (ICD-10-PCS; 2021-05-15)
DX: K57.32 Diverticulitis of large intestine without perforation or abscess without bleeding (principal); N18.6 End stage renal disease; I13.2 Hypertensive heart and chronic kidney disease with heart failure and with stage 5 chronic kidney disease, or end stage renal disease; E11.52 Type 2 diabetes mellitus with diabetic peripheral angiopathy with gangrene; R18.8 Other ascites; L97.919 Non-pressure chronic ulcer of unspecified part of right lower leg with unspecified severity; E11.22 Type 2 diabetes mellitus with diabetic chronic kidney disease; E11.621 Type 2 diabetes mellitus with foot ulcer; I50.9 Heart failure, unspecified; E78.5 Hyperlipidemia, unspecified; Z99.2 Dependence on renal dialysis; Z95.5 Presence of coronary angioplasty implant and graft; Z91.15 Patient's noncompliance with renal dialysis; Z79.4 Long term (current) use of insulin; Z87.891 Personal history of nicotine dependence
CPT/HCPCS: 36415; 71046-TC-FY; 74176-TC; 76700-TC; 80048; 80053; 82550; 82553; 82962; 82977; 83540; 83550; 83690; 83735; 84100; 84484; 85025; 85027; 85610; 85730; 86803; 87340; 93005; 93010; 97116-GP; 97161-GP; 99285-25; C9803; J0131; J1644; U0003; U0005

== ENCOUNTER 2021-06-20 12:26 | Observation (INO) | payer OTHER ==
[2021-06-20] MEDS ORDERED: ACETAMINOPHEN 1000 MG/100 ML VIAL IVPB ONE (14:32)
[2021-06-20] MEDS ORDERED: ACETAMINOPHEN INJECTION 100 ML IVPB ONE (17:11)
[2021-06-20 17:19] LABS: BASO % 0.8 % (0-2.0); EOS % 2.9 % (0-4.5); HEMATOCRIT 26.1 % (35.4-49); HEMOGLOBIN 8.4 GM/dL (11.7-16.9); INR 1.55 (0.83-1.09); LYMPH % 9.6 % (8-40); MCH 28.8 pg (25.7-33.7); MCHC 32.4 g/dl (32.0-35.9); MEAN CELL VOLUME 89.2 fl (80-96); MEAN PLT VOLUME 6.9 fl (7.5-11.1); MONO % 9.7 % (3.8-10.2); PLATELET COUNT 347 10^3/uL (134-434); PROTHROMBIN TIME (PATIENT) 17.4 SEC (9.7-13.0); RBC 2.92 M/mm3 (4.00-5.60); WHITE BLOOD COUNT 7.7 K/mm3 (4.0-10.0)
[2021-06-20 17:21] LABS: ACTIVATED PTT 31.8 SECONDS (25.2-36.5)
[2021-06-20 17:32] LABS: CHLORIDE 106 mmol/L (98-107); SODIUM 139 mmol/L (136-145)
[2021-06-20 17:34] LABS: ALBUMIN 2.6 g/dl (3.4-5.0); ANION GAP 10 MMOL/L (8-16); BLOOD UREA NITROGEN 93.4 mg/dL (7-18); CALCIUM 7.7 mg/dL (8.5-10.1); CO2 23 mmol/L (21-32); GLUCOSE,RANDOM 162 mg/dL (74-106)
[2021-06-20 17:37] LABS: SGOT/AST 26 U/L (15-37); SGPT/ALT 34 U/L (13-61)
[2021-06-20 17:39] LABS: BILIRUBIN,TOTAL 0.4 mg/dL (0.2-1); TOT PROT 7.6 g/dl (6.4-8.2)
[2021-06-20 17:40] LABS: ALK PHOS 170 U/L (45-117)
[2021-06-20 17:42] LABS: CREATININE 9.4 mg/dL (0.55-1.3)
[2021-06-20] MEDS ORDERED: SODIUM CHLORIDE 250 ML IV PRN ×2 (18:06→18:07)
[2021-06-20 20:19] LABS: SODIUM 139 mmol/L (136-145)
[2021-06-20 20:22] LABS: CALCIUM 7.3 mg/dL (8.5-10.1); CO2 22 mmol/L (21-32); GLUCOSE,RANDOM 150 mg/dL (74-106)
[2021-06-20 20:25] LABS: PHOSPHOROUS 4.8 mg/dL (2.5-4.9)
[2021-06-20 21:04] LABS: ANION GAP 10 MMOL/L (8-16); CHLORIDE 107 mmol/L (98-107); CREATININE 8.7 mg/dL (0.55-1.3)
[2021-06-20] MEDS ORDERED: LABETALOL HCL 200 MG TABLET (FP) PO SCH (22:00)
[2021-06-21] MEDS ORDERED: LABETALOL HCL 100 MG TABLET (FP) ONE (02:12)
[2021-06-21] MEDS ORDERED: HEPARIN NA (PORCINE) 5,000 UNITS/ML 1ML VIAL ONE (02:12)
[2021-06-21] MEDS ORDERED: ATORVASTATIN CA 80 MG TABLET (FP) ONE (02:12)
[2021-06-21] MEDS ORDERED: INSULIN SLIDING SCALE (NOVOLOG) 1 VIAL SQ ONE (02:31)
[2021-06-21] MEDS: LABETALOL HCL 200 MG TABLET (FP) PO SCH ×3 (02:50→22:28)
[2021-06-21] MEDS: ATORVASTATIN CA 80 MG TABLET (FP) PO SCH ×2 (02:50→22:28)
[2021-06-21] MEDS: HEPARIN NA (PORCINE) 5,000 UNITS/ML 1ML VIAL SQ SCH ×4 (02:51→22:27)
[2021-06-21] MEDS: INSULIN SLIDING SCALE (NOVOLOG) 1 VIAL SQ SCH ×5 (02:51→22:28)
[2021-06-21] MEDS: guaiFENesin/D-M SUGAR-FREE/ACLHOL-FREE 118 ML BOTTLE PO PRN ×2 (06:54→23:46)
[2021-06-21] MEDS ORDERED: SODIUM CHLORIDE 250 ML IV PRN (07:44)
[2021-06-21 07:47] LABS: BASO % 0.8 % (0-2.0); EOS % 2.4 % (0-4.5); HEMATOCRIT 25.9 % (35.4-49); HEMOGLOBIN 8.3 GM/dL (11.7-16.9); LYMPH % 10.1 % (8-40); MCH 28.2 pg (25.7-33.7); MCHC 32.2 g/dl (32.0-35.9); MEAN CELL VOLUME 87.8 fl (80-96); MEAN PLT VOLUME 6.7 fl (7.5-11.1); MONO % 8.7 % (3.8-10.2); PLATELET COUNT 300 10^3/uL (134-434); RBC 2.95 M/mm3 (4.00-5.60); RDW 16.8 % (11.9-15.9); WHITE BLOOD COUNT 7.6 K/mm3 (4.0-10.0)
[2021-06-21 08:10] LABS: CALCIUM 7.7 mg/dL (8.5-10.1)
[2021-06-21 08:14] LABS: CREATININE 6.5 mg/dL (0.55-1.3); PHOSPHOROUS 3.9 mg/dL (2.5-4.9)
[2021-06-21] MEDS ORDERED: EPOETIN ALFA-EPBX 20,000 UNIT/ML VIAL SQ ONE (09:00)
[2021-06-21] MEDS ORDERED: NIFEdipine E.R 60 MG TABLET PO SCH (10:00)
[2021-06-21] MEDS ORDERED: PATIENT'S OWN MEDICATION (NON-FORMULARY) (Lisinopril [Lisinopril] 40 MG Tablet) PO SCH (10:00)
[2021-06-21] MEDS: LISINOPRIL 20 MG TABLET PO SCH (12:20)
[2021-06-21] MEDS: NIFEdipine E.R 60 MG TABLET PO SCH (12:21)
[2021-06-21 14:33] VITALS: BMI 26.3
[2021-06-21] MEDS: TAMSULOSIN HCL 0.4 MG CAP PO SCH (15:36)
[2021-06-21] MEDS: CLOPIDOGREL BISULFATE 75 MG TABLET (FP) PO SCH (15:37)
[2021-06-21] MEDS ORDERED: PT OWN MED DRAWER 7, Y5N ONE ×2 (18:19→23:45)
[2021-06-22] MEDS ORDERED: MELATONIN 5 MG TABLETS PO ONE ×2 (02:47→23:45)
[2021-06-22] MEDS: INSULIN SLIDING SCALE (NOVOLOG) 1 VIAL SQ SCH ×4 (06:03→21:40)
[2021-06-22] MEDS: HEPARIN NA (PORCINE) 5,000 UNITS/ML 1ML VIAL SQ SCH ×3 (06:17→21:39)
[2021-06-22] MEDS: TAMSULOSIN HCL 0.4 MG CAP PO SCH (08:41)
[2021-06-22 09:39] LABS: BLOOD UREA NITROGEN 33.7 mg/dL (7-18); CALCIUM 7.3 mg/dL (8.5-10.1)
[2021-06-22 09:42] LABS: CREATININE 4.9 mg/dL (0.55-1.3)
[2021-06-22] MEDS: LISINOPRIL 20 MG TABLET PO SCH (09:49)
[2021-06-22] MEDS: LABETALOL HCL 200 MG TABLET (FP) PO SCH ×2 (09:49→21:39)
[2021-06-22] MEDS: NIFEdipine E.R 60 MG TABLET PO SCH (09:49)
[2021-06-22] MEDS: CLOPIDOGREL BISULFATE 75 MG TABLET (FP) PO SCH (09:49)
[2021-06-22] MEDS ORDERED: SODIUM CHLORIDE 250 ML IV PRN (12:06)
[2021-06-22 13:55] LABS: HEMATOCRIT 24.2 % (35.4-49); HEMOGLOBIN 7.7 GM/dL (11.7-16.9); MCHC 31.9 g/dl (32.0-35.9); MEAN CELL VOLUME 87.8 fl (80-96); MEAN PLT VOLUME 6.8 fl (7.5-11.1); PLATELET COUNT 303 10^3/uL (134-434); RBC 2.75 M/mm3 (4.00-5.60); RDW 16.6 % (11.9-15.9); WHITE BLOOD COUNT 6.7 K/mm3 (4.0-10.0)
[2021-06-22] MEDS ORDERED: PT OWN MED DRAWER 7, Y5N ONE (18:13)
[2021-06-22] MEDS: guaiFENesin/D-M SUGAR-FREE/ACLHOL-FREE 118 ML BOTTLE PO PRN (18:16)
[2021-06-22] MEDS ORDERED: ACETAMINOPHEN 325 MG TABLET (FP) PO PRN (20:36)
[2021-06-22] MEDS: ATORVASTATIN CA 80 MG TABLET (FP) PO SCH (21:39)
[2021-06-23] MEDS: INSULIN SLIDING SCALE (NOVOLOG) 1 VIAL SQ SCH ×3 (06:11→16:47)
[2021-06-23] MEDS: HEPARIN NA (PORCINE) 5,000 UNITS/ML 1ML VIAL SQ SCH ×2 (06:23→13:35)
[2021-06-23] MEDS ORDERED: SODIUM CHLORIDE 250 ML IV PRN (08:26)
[2021-06-23] MEDS ORDERED: EPOETIN ALFA-EPBX 20,000 UNIT/ML VIAL IVPUSH ONE (08:30)
[2021-06-23 09:19] LABS: HEMATOCRIT 25.1 % (35.4-49); HEMOGLOBIN 8.3 GM/dL (11.7-16.9); MCH 29.1 pg (25.7-33.7); MCHC 33.1 g/dl (32.0-35.9); MEAN CELL VOLUME 87.8 fl (80-96); MEAN PLT VOLUME 6.8 fl (7.5-11.1); PLATELET COUNT 326 10^3/uL (134-434); RBC 2.85 M/mm3 (4.00-5.60); RDW 16.6 % (11.9-15.9); WHITE BLOOD COUNT 8.1 K/mm3 (4.0-10.0)
[2021-06-23 09:56] LABS: CALCIUM 7.5 mg/dL (8.5-10.1)
[2021-06-23 09:57] LABS: BLOOD UREA NITROGEN 49.6 mg/dL (7-18); MAGNESIUM 1.9 mg/dL (1.8-2.4)
[2021-06-23 09:59] LABS: CREATININE 6.6 mg/dL (0.55-1.3)
[2021-06-23 10:00] LABS: PHOSPHOROUS 3.8 mg/dL (2.5-4.9)
[2021-06-23] MEDS: TAMSULOSIN HCL 0.4 MG CAP PO SCH (13:34)
[2021-06-23] MEDS: LABETALOL HCL 200 MG TABLET (FP) PO SCH (13:34)
[2021-06-23] MEDS: LISINOPRIL 20 MG TABLET PO SCH (13:34)
[2021-06-23] MEDS: NIFEdipine E.R 60 MG TABLET PO SCH (13:34)
[2021-06-23] MEDS: CLOPIDOGREL BISULFATE 75 MG TABLET (FP) PO SCH (13:34)
[2021-06-23 18:17] VITALS: BP 162/76; PULSE 81; TEMP 98.8
[2021-06-25] MEDS ORDERED: ERGOCALCIFEROL (VIT D2) 50,000 UNIT (1.25 MG) CAPSULE PO SCH (10:00)
== END 2021-06-23 18:44 | disposition home or self-care (01) ==
LOC: JER 12:26 → INTOOBSV 15:21 → UNDOADMOB 15:21 → JERBED 15:21 → J5S 06-21 12:14
PROVIDERS: ATTEND Internal Medicine
PROC: 3E033NZ Introduction of Analgesics, Hypnotics, Sedatives into Peripheral Vein, Percutaneous Approach (ICD-10-PCS; principal; 2021-06-20)
PROC: 3E023GC Introduction of Other Therapeutic Substance into Muscle, Percutaneous Approach (ICD-10-PCS; 2021-06-20)
PROC: 3E023GC Introduction of Other Therapeutic Substance into Muscle, Percutaneous Approach (ICD-10-PCS; 2021-06-20)
PROC: 3E013GC Introduction of Other Therapeutic Substance into Subcutaneous Tissue, Percutaneous Approach (ICD-10-PCS; 2021-06-20)
PROC: 3E013VG Introduction of Insulin into Subcutaneous Tissue, Percutaneous Approach (ICD-10-PCS; 2021-06-20)
DX: E11.22 Type 2 diabetes mellitus with diabetic chronic kidney disease (principal); E78.5 Hyperlipidemia, unspecified; I13.2 Hypertensive heart and chronic kidney disease with heart failure and with stage 5 chronic kidney disease, or end stage renal disease; I38 Endocarditis, valve unspecified; M86.9 Osteomyelitis, unspecified; Z99.2 Dependence on renal dialysis; J90 Pleural effusion, not elsewhere classified; N18.6 End stage renal disease; N18.9 Chronic kidney disease, unspecified; I50.9 Heart failure, unspecified
CPT/HCPCS: 36415; 71045-TC-FY; 73610-TC-RT-FY; 73630-TC-RT-FY; 80048; 80053; 82962; 83605; 83735; 84100; 84484; 85025; 85027; 85610; 85651; 85730; 86140; 86803; 86850; 86900; 86901; 87040; 87340; 87804; 87807; 93005; 93010; 93971-TC; 96372; 96374; 96375; 99285-25; C9803; G0378; J0131; J1644; U0003; U0005

== ENCOUNTER 2021-06-28 15:20 | Inpatient (IN) | payer OTHER ==
[2021-06-28] MEDS ORDERED: ACETAMINOPHEN 1000 MG/100 ML BAG IVPB ONE (16:57)
[2021-06-28] MEDS ORDERED: ACETAMINOPHEN INJECTION 100 ML IVPB ONE (17:08)
[2021-06-28 17:49] LABS: BASO % 0.5 % (0-2.0); EOS % 0.7 % (0-4.5); HEMATOCRIT 26.9 % (35.4-49); HEMOGLOBIN 8.5 GM/dL (11.7-16.9); LYMPH % 6.5 % (8-40); MCH 28.5 pg (25.7-33.7); MCHC 31.7 g/dl (32.0-35.9); MEAN PLT VOLUME 7.2 fl (7.5-11.1); NEUT % 83.3 % (42.8-82.8); PLATELET COUNT 425 10^3/uL (134-434); RBC 2.99 M/mm3 (4.00-5.60); RDW 16.6 % (11.9-15.9)
[2021-06-28 17:57] LABS: INR 1.5 (0.83-1.09); PROTHROMBIN TIME (PATIENT) 16.9 SEC (9.7-13.0)
[2021-06-28 17:58] LABS: CHLORIDE 101 mmol/L (98-107); SODIUM 136 mmol/L (136-145)
[2021-06-28 17:59] LABS: ACTIVATED PTT 32.2 SECONDS (25.2-36.5)
[2021-06-28 18:00] LABS: BLOOD UREA NITROGEN 50.8 mg/dL (7-18); CALCIUM 8.6 mg/dL (8.5-10.1)
[2021-06-28 18:01] LABS: ALBUMIN 2.6 g/dl (3.4-5.0); ANION GAP 11 MMOL/L (8-16); CO2 24 mmol/L (21-32); GLUCOSE,RANDOM 197 mg/dL (74-106)
[2021-06-28 18:04] LABS: SGOT/AST 22 U/L (15-37); SGPT/ALT 34 U/L (13-61)
[2021-06-28 18:06] LABS: BILIRUBIN,TOTAL 0.5 mg/dL (0.2-1); TOT PROT 8.1 g/dl (6.4-8.2)
[2021-06-28 18:07] LABS: ALK PHOS 179 U/L (45-117)
[2021-06-28] MEDS ORDERED: morphine SULFATE 4 MG/ML VIAL IVPUSH ONE (22:04)
[2021-06-28] MEDS ORDERED: VANCOMYCIN 1 GM in D5W (PRE-DOCKED) 1,000 MG/250 ML IVPB ONE (22:04)
[2021-06-28] MEDS ORDERED: VANCOMYCIN 1 GRAM (PRE-DOCKED) 1,000 MG/250 ML BAG IVPB ONE (22:30)
[2021-06-28] MEDS ORDERED: PIPERACILLIN/TAZOB 2.25 GM 2.25 GM in DEXTROSE 5%-WATER - 50 ML IVPB ONE (22:38)
[2021-06-28] MEDS ORDERED: LABETALOL HCL 200 MG TABLET (FP) PO ONE (23:11)
[2021-06-29] MEDS ORDERED: LABETALOL HCL 100 MG TABLET (FP) ONE (00:15)
[2021-06-29] MEDS ORDERED: PIPERACILLIN/TAZOB 2.25 GM 2.25 GM/50 ML BAG IVPB ONE (00:15)
[2021-06-29 03:16] VITALS: BMI 26.4
[2021-06-29] MEDS ORDERED: ACETAMINOPHEN 325 MG TABLET (FP) PO PRN (04:06)
[2021-06-29] MEDS: CLINDAMYCIN 600MG PREMIX IVPB 600 MG/50 ML BAG IVPB SCH ×2 (05:35→14:43)
[2021-06-29] MEDS: HEPARIN NA (PORCINE) 5,000 UNITS/ML 1ML VIAL SQ SCH ×3 (05:49→21:41)
[2021-06-29] MEDS: INSULIN SLIDING SCALE (NOVOLOG) 1 VIAL SQ SCH ×4 (06:10→21:43)
[2021-06-29] MEDS: INSULIN (LEVEMIR) 100 UNITS/ML UNITS SQ SCH ×2 (06:13→21:46)
[2021-06-29] MEDS ORDERED: SODIUM CHLORIDE 250 ML IV PRN ×3 (07:09→12:20)
[2021-06-29] MEDS: TAMSULOSIN HCL 0.4 MG CAP PO SCH (08:00)
[2021-06-29 12:11] LABS: HEMATOCRIT 23.7 % (35.4-49); HEMOGLOBIN 7.6 GM/dL (11.7-16.9); MCH 28.7 pg (25.7-33.7); MCHC 32.2 g/dl (32.0-35.9); MEAN CELL VOLUME 89.4 fl (80-96); MEAN PLT VOLUME 7.3 fl (7.5-11.1); PLATELET COUNT 400 10^3/uL (134-434); RBC 2.65 M/mm3 (4.00-5.60); RDW 16.3 % (11.9-15.9); WHITE BLOOD COUNT 7.7 K/mm3 (4.0-10.0)
[2021-06-29 12:30] LABS: CHLORIDE 104 mmol/L (98-107); SODIUM 138 mmol/L (136-145)
[2021-06-29 12:31] LABS: CALCIUM 7.9 mg/dL (8.5-10.1)
[2021-06-29 12:32] LABS: ALBUMIN 2.1 g/dl (3.4-5.0); ANION GAP 12 MMOL/L (8-16); CO2 22 mmol/L (21-32); GLUCOSE,RANDOM 125 mg/dL (74-106)
[2021-06-29 12:35] LABS: PHOSPHOROUS 5.2 mg/dL (2.5-4.9); SGOT/AST 17 U/L (15-37); SGPT/ALT 31 U/L (13-61)
[2021-06-29 12:37] LABS: BILIRUBIN,TOTAL 0.5 mg/dL (0.2-1)
[2021-06-29 12:47] LABS: ALK PHOS 144 U/L (45-117); CREATININE 7.9 mg/dL (0.55-1.3)
[2021-06-29 13:48] LABS: ERYTHROCYTE SEDIMENTATION RATE 48 mm/hr (0-20)
[2021-06-29] MEDS: LISINOPRIL 20 MG TABLET PO SCH (14:44)
[2021-06-29] MEDS: CLOPIDOGREL BISULFATE 75 MG TABLET (FP) PO SCH (14:44)
[2021-06-29] MEDS: NIFEdipine E.R 60 MG TABLET PO SCH (14:44)
[2021-06-29] MEDS: LABETALOL HCL 200 MG TABLET (FP) PO SCH ×2 (14:44→21:41)
[2021-06-29] MEDS ORDERED: INSULIN (NOVOLOG) ASPART 100 UNITS/ML 10ML VIAL ONE (21:28)
[2021-06-29] MEDS: ATORVASTATIN CA 80 MG TABLET (FP) PO SCH (21:40)
[2021-06-30] MEDS ORDERED: DEXTROSE 5%-WATER - 50 ML IVPB ONE ×2 (01:44→10:44)
[2021-06-30] MEDS ORDERED: PIPERACILLIN/TAZOBACTAM 2.25 GM VIAL IVPB ONE ×2 (01:44→10:44)
[2021-06-30] MEDS: PIPERACILLIN/TAZOB 2.25 GM 2.25 GM in DEXTROSE 5%-WATER - 50 ML IVPB SCH ×2 (02:38→13:11)
[2021-06-30] MEDS: HEPARIN NA (PORCINE) 5,000 UNITS/ML 1ML VIAL SQ SCH ×3 (06:25→22:08)
[2021-06-30] MEDS: INSULIN (LEVEMIR) 100 UNITS/ML UNITS SQ SCH ×2 (06:25→22:10)
[2021-06-30] MEDS: INSULIN SLIDING SCALE (NOVOLOG) 1 VIAL SQ SCH ×4 (06:26→22:15)
[2021-06-30 07:15] LABS: BASO % 0.8 % (0-2.0); EOS % 2.6 % (0-4.5); HEMATOCRIT 25.2 % (35.4-49); HEMOGLOBIN 8.1 GM/dL (11.7-16.9); LYMPH % 13.1 % (8-40); MCH 28.5 pg (25.7-33.7); MONO % 12.8 % (3.8-10.2); NEUT % 70.7 % (42.8-82.8); PLATELET COUNT 429 10^3/uL (134-434); RBC 2.83 M/mm3 (4.00-5.60); RDW 16.3 % (11.9-15.9); WHITE BLOOD COUNT 7.3 K/mm3 (4.0-10.0)
[2021-06-30 07:31] LABS: CALCIUM 7.5 mg/dL (8.5-10.1)
[2021-06-30 07:32] LABS: BLOOD UREA NITROGEN 36.9 mg/dL (7-18); MAGNESIUM 1.9 mg/dL (1.8-2.4)
[2021-06-30 07:35] LABS: CREATININE 5.3 mg/dL (0.55-1.3)
[2021-06-30 07:36] LABS: PHOSPHOROUS 4.5 mg/dL (2.5-4.9)
[2021-06-30 07:37] LABS: BILIRUBIN,TOTAL 0.5 mg/dL (0.2-1); TOT PROT 6.8 g/dl (6.4-8.2)
[2021-06-30] MEDS ORDERED: EPOETIN ALFA-EPBX 20,000 UNIT/ML VIAL SQ ONE (08:00)
[2021-06-30] MEDS ORDERED: VANCOMYCIN 1 GM in D5W (PRE-DOCKED) 1,000 MG/250 ML IVPB SCH (10:00)
[2021-06-30] MEDS: LABETALOL HCL 200 MG TABLET (FP) PO SCH ×2 (13:31→22:07)
[2021-06-30] MEDS: CLOPIDOGREL BISULFATE 75 MG TABLET (FP) PO SCH (13:31)
[2021-06-30] MEDS: LISINOPRIL 20 MG TABLET PO SCH (13:31)
[2021-06-30] MEDS: NIFEdipine E.R 60 MG TABLET PO SCH (13:31)
[2021-06-30] MEDS: TAMSULOSIN HCL 0.4 MG CAP PO SCH (13:31)
[2021-06-30] MEDS ORDERED: VANCOMYCIN/WATER BAGS 1,250 MG/250 ML BAG IVPB ONE (14:00)
[2021-06-30] MEDS: VANCOMYCIN 250 MG/5 ML ORAL SOLUTION PO SCH (17:38)
[2021-06-30] MEDS: ATORVASTATIN CA 80 MG TABLET (FP) PO SCH (22:07)
[2021-06-30] MEDS ORDERED: guaiFENesin 200 MG/10 ML 10 ML UNIT-DOSE CUPS PO ONE (22:47)
[2021-07-01] MEDS: VANCOMYCIN 250 MG/5 ML ORAL SOLUTION PO SCH ×5 (00:41→23:16)
[2021-07-01] MEDS: HEPARIN NA (PORCINE) 5,000 UNITS/ML 1ML VIAL SQ SCH ×3 (06:38→21:51)
[2021-07-01] MEDS: INSULIN (LEVEMIR) 100 UNITS/ML UNITS SQ SCH ×2 (06:39→21:55)
[2021-07-01] MEDS: INSULIN SLIDING SCALE (NOVOLOG) 1 VIAL SQ SCH ×4 (06:39→21:59)
[2021-07-01] MEDS: TAMSULOSIN HCL 0.4 MG CAP PO SCH (09:02)
[2021-07-01] MEDS: NIFEdipine E.R 60 MG TABLET PO SCH (09:02)
[2021-07-01] MEDS: LISINOPRIL 20 MG TABLET PO SCH (09:02)
[2021-07-01] MEDS: CLOPIDOGREL BISULFATE 75 MG TABLET (FP) PO SCH (09:02)
[2021-07-01] MEDS: LABETALOL HCL 200 MG TABLET (FP) PO SCH ×2 (09:02→21:51)
[2021-07-01 09:19] LABS: HEMATOCRIT 26.9 % (35.4-49); HEMOGLOBIN 8.6 GM/dL (11.7-16.9); MCH 28.6 pg (25.7-33.7); MEAN CELL VOLUME 89.4 fl (80-96); MEAN PLT VOLUME 7.1 fl (7.5-11.1); PLATELET COUNT 464 10^3/uL (134-434); RBC 3.01 M/mm3 (4.00-5.60); RDW 16.4 % (11.9-15.9); WHITE BLOOD COUNT 6.6 K/mm3 (4.0-10.0)
[2021-07-01 10:10] LABS: CALCIUM 7.8 mg/dL (8.5-10.1)
[2021-07-01 10:11] LABS: ALBUMIN 2.1 g/dl (3.4-5.0); BLOOD UREA NITROGEN 35.3 mg/dL (7-18); MAGNESIUM 1.9 mg/dL (1.8-2.4)
[2021-07-01] MEDS ORDERED: VANCOMYCIN 1 GM in D5W (PRE-DOCKED) 1,000 MG/250 ML IVPB ONE (10:12)
[2021-07-01 10:13] LABS: PHOSPHOROUS 4.1 mg/dL (2.5-4.9)
[2021-07-01 10:14] LABS: CREATININE 5.3 mg/dL (0.55-1.3)
[2021-07-01 10:15] LABS: BILIRUBIN,TOTAL 0.6 mg/dL (0.2-1); TOT PROT 7.4 g/dl (6.4-8.2)
[2021-07-01] MEDS: ATORVASTATIN CA 80 MG TABLET (FP) PO SCH (21:51)
[2021-07-02] MEDS: VANCOMYCIN 250 MG/5 ML ORAL SOLUTION PO SCH ×4 (06:34→23:49)
[2021-07-02] MEDS: HEPARIN NA (PORCINE) 5,000 UNITS/ML 1ML VIAL SQ SCH ×3 (06:34→21:11)
[2021-07-02] MEDS: INSULIN SLIDING SCALE (NOVOLOG) 1 VIAL SQ SCH ×4 (06:38→21:13)
[2021-07-02] MEDS: INSULIN (LEVEMIR) 100 UNITS/ML UNITS SQ SCH ×2 (06:38→21:12)
[2021-07-02] MEDS ORDERED: PT OWN MED DRAWER 7, Y5N ONE (08:27)
[2021-07-02 09:50] LABS: HEMOGLOBIN 8.3 GM/dL (11.7-16.9); MCH 28.5 pg (25.7-33.7); MCHC 31.9 g/dl (32.0-35.9); MEAN CELL VOLUME 89.2 fl (80-96); MEAN PLT VOLUME 7.2 fl (7.5-11.1); PLATELET COUNT 472 10^3/uL (134-434); RBC 2.92 M/mm3 (4.00-5.60); RDW 15.7 % (11.9-15.9); WHITE BLOOD COUNT 6.3 K/mm3 (4.0-10.0)
[2021-07-02] MEDS: TAMSULOSIN HCL 0.4 MG CAP PO SCH (10:13)
[2021-07-02] MEDS: LABETALOL HCL 200 MG TABLET (FP) PO SCH ×2 (10:13→21:13)
[2021-07-02] MEDS: LISINOPRIL 20 MG TABLET PO SCH (10:13)
[2021-07-02] MEDS: NIFEdipine E.R 60 MG TABLET PO SCH (10:14)
[2021-07-02] MEDS: CLOPIDOGREL BISULFATE 75 MG TABLET (FP) PO SCH (10:14)
[2021-07-02 10:16] LABS: CALCIUM 7.7 mg/dL (8.5-10.1)
[2021-07-02 10:17] LABS: ALBUMIN 2.1 g/dl (3.4-5.0); BLOOD UREA NITROGEN 53.9 mg/dL (7-18)
[2021-07-02 10:20] LABS: CREATININE 7.2 mg/dL (0.55-1.3); PHOSPHOROUS 5.1 mg/dL (2.5-4.9)
[2021-07-02 10:21] LABS: BILIRUBIN,TOTAL 0.6 mg/dL (0.2-1); TOT PROT 7.3 g/dl (6.4-8.2)
[2021-07-02] MEDS ORDERED: PIPERACILLIN/TAZOBACTAM 2.25 GM VIAL IVPB ONE (16:56)
[2021-07-02] MEDS ORDERED: DEXTROSE 5%-WATER - 50 ML IVPB ONE (16:56)
[2021-07-02] MEDS: PIPERACILLIN/TAZOB 2.25 GM 2.25 GM in DEXTROSE 5%-WATER - 50 ML IVPB SCH (17:30)
[2021-07-02] MEDS: ATORVASTATIN CA 80 MG TABLET (FP) PO SCH (21:13)
[2021-07-03] MEDS ORDERED: PIPERACILLIN/TAZOBACTAM 2.25 GM VIAL IVPB ONE ×3 (01:30→16:41)
[2021-07-03] MEDS ORDERED: DEXTROSE 5%-WATER - 50 ML IVPB ONE ×3 (01:30→16:41)
[2021-07-03] MEDS: PIPERACILLIN/TAZOB 2.25 GM 2.25 GM in DEXTROSE 5%-WATER - 50 ML IVPB SCH ×3 (03:05→17:33)
[2021-07-03] MEDS: HEPARIN NA (PORCINE) 5,000 UNITS/ML 1ML VIAL SQ SCH ×3 (06:00→22:31)
[2021-07-03] MEDS: VANCOMYCIN 250 MG/5 ML ORAL SOLUTION PO SCH ×4 (06:01→23:51)
[2021-07-03] MEDS: INSULIN SLIDING SCALE (NOVOLOG) 1 VIAL SQ SCH ×4 (06:06→22:44)
[2021-07-03] MEDS: INSULIN (LEVEMIR) 100 UNITS/ML UNITS SQ SCH ×2 (06:12→22:45)
[2021-07-03 08:30] LABS: EOS % 3.1 % (0-4.5); HEMATOCRIT 25.4 % (35.4-49); HEMOGLOBIN 8.2 GM/dL (11.7-16.9); MCH 28.6 pg (25.7-33.7); MCHC 32.3 g/dl (32.0-35.9); MEAN CELL VOLUME 88.5 fl (80-96); MEAN PLT VOLUME 7.1 fl (7.5-11.1); MONO % 9.5 % (3.8-10.2); NEUT % 67.4 % (42.8-82.8); PLATELET COUNT 474 10^3/uL (134-434); RBC 2.87 M/mm3 (4.00-5.60); RDW 16.2 % (11.9-15.9); WHITE BLOOD COUNT 6.3 K/mm3 (4.0-10.0)
[2021-07-03] MEDS: TAMSULOSIN HCL 0.4 MG CAP PO SCH (08:30)
[2021-07-03 08:44] LABS: CHLORIDE 101 mmol/L (98-107); SODIUM 136 mmol/L (136-145)
[2021-07-03 08:48] LABS: ALBUMIN 2.1 g/dl (3.4-5.0); ANION GAP 11 MMOL/L (8-16); BLOOD UREA NITROGEN 65.8 mg/dL (7-18); CALCIUM 7.9 mg/dL (8.5-10.1); CO2 24 mmol/L (21-32); GLUCOSE,RANDOM 75 mg/dL (74-106); MAGNESIUM 2.1 mg/dL (1.8-2.4)
[2021-07-03 08:51] LABS: PHOSPHOROUS 6.4 mg/dL (2.5-4.9); SGOT/AST 20 U/L (15-37); SGPT/ALT 30 U/L (13-61)
[2021-07-03 08:53] LABS: BILIRUBIN,TOTAL 1.1 mg/dL (0.2-1); TOT PROT 7.3 g/dl (6.4-8.2)
[2021-07-03 08:56] LABS: ALK PHOS 144 U/L (45-117)
[2021-07-03 08:57] LABS: CREATININE 8.8 mg/dL (0.55-1.3)
[2021-07-03] MEDS ORDERED: SODIUM CHLORIDE 250 ML IV PRN (10:23)
[2021-07-03] MEDS: LISINOPRIL 20 MG TABLET PO SCH ×2 (10:25→15:49)
[2021-07-03] MEDS: CLOPIDOGREL BISULFATE 75 MG TABLET (FP) PO SCH ×2 (10:25→15:49)
[2021-07-03] MEDS: NIFEdipine E.R 60 MG TABLET PO SCH ×2 (10:25→15:49)
[2021-07-03] MEDS: LABETALOL HCL 200 MG TABLET (FP) PO SCH ×3 (10:25→22:31)
[2021-07-03] MEDS ORDERED: VANCOMYCIN 1 GRAM (PRE-DOCKED) 1,000 MG/250 ML BAG IVPB ONE (11:00)
[2021-07-03] MEDS ORDERED: EPOETIN ALFA-EPBX 20,000 UNIT/ML VIAL IVPUSH ONE (11:00)
[2021-07-03] MEDS: ATORVASTATIN CA 80 MG TABLET (FP) PO SCH (22:30)
[2021-07-04] MEDS ORDERED: PIPERACILLIN/TAZOBACTAM 2.25 GM VIAL IVPB ONE ×4 (01:43→23:26)
[2021-07-04] MEDS ORDERED: DEXTROSE 5%-WATER - 50 ML IVPB ONE ×4 (01:43→23:27)
[2021-07-04] MEDS: PIPERACILLIN/TAZOB 2.25 GM 2.25 GM in DEXTROSE 5%-WATER - 50 ML IVPB SCH ×3 (01:56→18:01)
[2021-07-04] MEDS ORDERED: MELATONIN 5 MG TABLETS PO ONE (02:23)
[2021-07-04] MEDS: VANCOMYCIN 250 MG/5 ML ORAL SOLUTION PO SCH ×3 (05:51→18:01)
[2021-07-04] MEDS: HEPARIN NA (PORCINE) 5,000 UNITS/ML 1ML VIAL SQ SCH ×3 (05:51→22:19)
[2021-07-04] MEDS: INSULIN (LEVEMIR) 100 UNITS/ML UNITS SQ SCH ×2 (06:04→22:20)
[2021-07-04] MEDS: INSULIN SLIDING SCALE (NOVOLOG) 1 VIAL SQ SCH ×4 (06:05→22:42)
[2021-07-04 09:13] LABS: HEMATOCRIT 26.3 % (35.4-49); HEMOGLOBIN 8.5 GM/dL (11.7-16.9); MCH 28.9 pg (25.7-33.7); MCHC 32.4 g/dl (32.0-35.9); MEAN CELL VOLUME 89.1 fl (80-96); MEAN PLT VOLUME 6.8 fl (7.5-11.1); PLATELET COUNT 484 10^3/uL (134-434); RBC 2.96 M/mm3 (4.00-5.60); RDW 16.3 % (11.9-15.9); WHITE BLOOD COUNT 7.9 K/mm3 (4.0-10.0)
[2021-07-04 09:41] LABS: CALCIUM 7.9 mg/dL (8.5-10.1)
[2021-07-04 09:43] LABS: ALBUMIN 2.2 g/dl (3.4-5.0)
[2021-07-04 09:44] LABS: CREATININE 6.1 mg/dL (0.55-1.3)
[2021-07-04 09:45] LABS: BILIRUBIN,TOTAL 0.6 mg/dL (0.2-1)
[2021-07-04 09:46] LABS: TOT PROT 7.6 g/dl (6.4-8.2)
[2021-07-04 09:52] LABS: BLOOD UREA NITROGEN 40.6 mg/dL (7-18)
[2021-07-04] MEDS: LISINOPRIL 20 MG TABLET PO SCH (11:48)
[2021-07-04] MEDS: TAMSULOSIN HCL 0.4 MG CAP PO SCH (11:48)
[2021-07-04] MEDS: NIFEdipine E.R 60 MG TABLET PO SCH (11:49)
[2021-07-04] MEDS: CLOPIDOGREL BISULFATE 75 MG TABLET (FP) PO SCH (11:50)
[2021-07-04] MEDS: LABETALOL HCL 200 MG TABLET (FP) PO SCH ×2 (11:53→22:21)
[2021-07-04] MEDS ORDERED: BENZOCAINE/MENTH/CETYLPYRD CL 1 EACH LOZENGE MM PRN (15:01)
[2021-07-04] MEDS ORDERED: MELATONIN 5 MG TABLETS PO PRN (22:00)
[2021-07-04] MEDS: ATORVASTATIN CA 80 MG TABLET (FP) PO SCH (22:21)
[2021-07-05] MEDS: VANCOMYCIN 250 MG/5 ML ORAL SOLUTION PO SCH ×4 (01:16→17:15)
[2021-07-05] MEDS: PIPERACILLIN/TAZOB 2.25 GM 2.25 GM in DEXTROSE 5%-WATER - 50 ML IVPB SCH ×3 (01:53→17:15)
[2021-07-05] MEDS: HEPARIN NA (PORCINE) 5,000 UNITS/ML 1ML VIAL SQ SCH ×3 (06:47→22:48)
[2021-07-05] MEDS: INSULIN (LEVEMIR) 100 UNITS/ML UNITS SQ SCH ×2 (06:54→22:58)
[2021-07-05] MEDS: INSULIN SLIDING SCALE (NOVOLOG) 1 VIAL SQ SCH ×4 (06:55→22:58)
[2021-07-05] MEDS ORDERED: DEXTROSE 5%-WATER - 50 ML IVPB ONE ×2 (08:25→16:26)
[2021-07-05] MEDS ORDERED: PIPERACILLIN/TAZOBACTAM 2.25 GM VIAL IVPB ONE ×2 (08:25→16:25)
[2021-07-05 08:55] LABS: HEMATOCRIT 25.9 % (35.4-49); HEMOGLOBIN 8.4 GM/dL (11.7-16.9); MCH 28.9 pg (25.7-33.7); MCHC 32.2 g/dl (32.0-35.9); MEAN CELL VOLUME 89.7 fl (80-96); MEAN PLT VOLUME 7.2 fl (7.5-11.1); PLATELET COUNT 462 10^3/uL (134-434); RBC 2.89 M/mm3 (4.00-5.60); RDW 16.2 % (11.9-15.9); WHITE BLOOD COUNT 6.9 K/mm3 (4.0-10.0)
[2021-07-05] MEDS ORDERED: VANCOMYCIN 1 GM PREMIX - 200 ML IVPB ONE (09:00)
[2021-07-05] MEDS: TAMSULOSIN HCL 0.4 MG CAP PO SCH (09:06)
[2021-07-05] MEDS: LISINOPRIL 20 MG TABLET PO SCH (09:06)
[2021-07-05] MEDS: LABETALOL HCL 200 MG TABLET (FP) PO SCH ×2 (09:06→22:49)
[2021-07-05] MEDS: CLOPIDOGREL BISULFATE 75 MG TABLET (FP) PO SCH (09:06)
[2021-07-05] MEDS: NIFEdipine E.R 60 MG TABLET PO SCH (09:06)
[2021-07-05 09:14] LABS: CHLORIDE 99 mmol/L (98-107); SODIUM 137 mmol/L (136-145)
[2021-07-05 09:22] LABS: ALBUMIN 2.3 g/dl (3.4-5.0); ANION GAP 11 MMOL/L (8-16); BLOOD UREA NITROGEN 51.5 mg/dL (7-18); CALCIUM 8.1 mg/dL (8.5-10.1); CO2 27 mmol/L (21-32); GLUCOSE,RANDOM 107 mg/dL (74-106)
[2021-07-05 09:25] LABS: SGOT/AST 25 U/L (15-37); SGPT/ALT 30 U/L (13-61)
[2021-07-05 09:27] LABS: TOT PROT 7.2 g/dl (6.4-8.2)
[2021-07-05 09:28] LABS: ALK PHOS 152 U/L (45-117)
[2021-07-05 09:31] LABS: CREATININE 7.6 mg/dL (0.55-1.3)
[2021-07-05] MEDS ORDERED: SODIUM CHLORIDE 250 ML IV PRN (11:00)
[2021-07-05] MEDS ORDERED: EPOETIN ALFA-EPBX 20,000 UNIT/ML VIAL IVPUSH ONE (11:00)
[2021-07-05] MEDS ORDERED: INSULIN (NOVOLOG) ASPART 100 UNITS/ML 10ML VIAL ONE (22:15)
[2021-07-05] MEDS: ATORVASTATIN CA 80 MG TABLET (FP) PO SCH (22:49)
[2021-07-06] MEDS ORDERED: DEXTROSE 5%-WATER - 50 ML IVPB ONE ×2 (00:57→08:33)
[2021-07-06] MEDS ORDERED: PIPERACILLIN/TAZOBACTAM 2.25 GM VIAL IVPB ONE ×2 (00:57→08:32)
[2021-07-06] MEDS: VANCOMYCIN 250 MG/5 ML ORAL SOLUTION PO SCH ×3 (01:00→12:10)
[2021-07-06] MEDS: PIPERACILLIN/TAZOB 2.25 GM 2.25 GM in DEXTROSE 5%-WATER - 50 ML IVPB SCH ×2 (01:12→09:46)
[2021-07-06] MEDS: INSULIN (LEVEMIR) 100 UNITS/ML UNITS SQ SCH (06:24)
[2021-07-06] MEDS: HEPARIN NA (PORCINE) 5,000 UNITS/ML 1ML VIAL SQ SCH ×2 (06:25→06:30)
[2021-07-06] MEDS: INSULIN SLIDING SCALE (NOVOLOG) 1 VIAL SQ SCH ×2 (06:25→12:16)
[2021-07-06] MEDS ORDERED: PT OWN MED DRAWER 7, Y5N ONE (08:47)
[2021-07-06 09:35] LABS: HEMATOCRIT 28.2 % (35.4-49); HEMOGLOBIN 8.8 GM/dL (11.7-16.9); MCH 28.1 pg (25.7-33.7); MCHC 31.1 g/dl (32.0-35.9); MEAN CELL VOLUME 90.2 fl (80-96); MEAN PLT VOLUME 6.9 fl (7.5-11.1); PLATELET COUNT 472 10^3/uL (134-434); RBC 3.13 M/mm3 (4.00-5.60); RDW 16.3 % (11.9-15.9); WHITE BLOOD COUNT 7.5 K/mm3 (4.0-10.0)
[2021-07-06] MEDS: LISINOPRIL 20 MG TABLET PO SCH (09:46)
[2021-07-06] MEDS: CLOPIDOGREL BISULFATE 75 MG TABLET (FP) PO SCH (09:47)
[2021-07-06] MEDS: NIFEdipine E.R 60 MG TABLET PO SCH (09:47)
[2021-07-06] MEDS: TAMSULOSIN HCL 0.4 MG CAP PO SCH (09:47)
[2021-07-06] MEDS: LABETALOL HCL 200 MG TABLET (FP) PO SCH (09:47)
[2021-07-06 10:00] LABS: BLOOD UREA NITROGEN 29.6 mg/dL (7-18)
[2021-07-06 10:04] LABS: CREATININE 5.5 mg/dL (0.55-1.3)
[2021-07-06 13:32] VITALS: BP 166/79; PULSE 76; TEMP 98.7
== END 2021-07-06 13:30 | disposition home or self-care (01) | DRG 602 ==
LOC: JER 15:20 → JERBED 18:26 → J5S 06-29 02:26 → J5WEST-2 06-29 16:00 → J7W 06-29 17:03
PROVIDERS: ADMIT Hospitalist; ATTEND Internal Medicine
PROC: 5A1D70Z Performance of Urinary Filtration, Intermittent, Less than 6 Hours Per Day (ICD-10-PCS; principal; 2021-06-29)
DX: L03.115 Cellulitis of right lower limb (principal); N18.6 End stage renal disease; I13.2 Hypertensive heart and chronic kidney disease with heart failure and with stage 5 chronic kidney disease, or end stage renal disease; I50.32 Chronic diastolic (congestive) heart failure; R78.81 Bacteremia; M86.662 Other chronic osteomyelitis, left tibia and fibula; I25.10 Atherosclerotic heart disease of native coronary artery without angina pectoris; E11.22 Type 2 diabetes mellitus with diabetic chronic kidney disease; Z99.2 Dependence on renal dialysis; E78.5 Hyperlipidemia, unspecified; Z79.4 Long term (current) use of insulin; N40.0 Benign prostatic hyperplasia without lower urinary tract symptoms; D64.9 Anemia, unspecified; K57.90 Diverticulosis of intestine, part unspecified, without perforation or abscess without bleeding; D63.1 Anemia in chronic kidney disease; E11.51 Type 2 diabetes mellitus with diabetic peripheral angiopathy without gangrene; E11.69 Type 2 diabetes mellitus with other specified complication; Z86.16 Personal history of COVID-19; B95.62 Methicillin resistant Staphylococcus aureus infection as the cause of diseases classified elsewhere
CPT/HCPCS: 36415; 71045-TC-FY; 71250-TC; 73610-TC-RT-FY; 73630-TC-RT-FY; 74176-TC; 75635-TC; 80048; 80053; 82550; 82553; 82962; 83735; 84100; 84484; 85025; 85027; 85610; 85651; 85730; 86140; 87040; 87070; 87186; 87205; 87804; 87807; 93005; 93010; 93306-TC; 93971-TC; 99285-25; C9803; G0480; J0131; J1644; Q9967; U0003; U0005

== ENCOUNTER 2021-08-15 10:00 | Inpatient (IN) | payer OTHER ==
[2021-08-15 11:34] LABS: BASO % 1.2 % (0-2.0); EOS % 2.4 % (0-4.5); HEMATOCRIT 27.5 % (35.4-49); HEMOGLOBIN 8.6 GM/dL (11.7-16.9); LYMPH % 11.9 % (8-40); MCH 29.1 pg (25.7-33.7); MCHC 31.4 g/dl (32.0-35.9); MEAN CELL VOLUME 92.8 fl (80-96); MEAN PLT VOLUME 7.3 fl (7.5-11.1); MONO % 7.7 % (3.8-10.2); NEUT % 76.8 % (42.8-82.8); PLATELET COUNT 243 10^3/uL (134-434); RBC 2.97 M/mm3 (4.00-5.60); RDW 17.8 % (11.9-15.9); WHITE BLOOD COUNT 5.7 K/mm3 (4.0-10.0)
[2021-08-15 11:54] LABS: CHLORIDE 109 mmol/L (98-107); SODIUM 140 mmol/L (136-145)
[2021-08-15 11:59] LABS: CALCIUM 7.7 mg/dL (8.5-10.1)
[2021-08-15 12:00] LABS: ANION GAP 10 MMOL/L (8-16); BLOOD UREA NITROGEN 83.2 mg/dL (7-18); CO2 21 mmol/L (21-32); GLUCOSE,RANDOM 128 mg/dL (74-106); MAGNESIUM 2.1 mg/dL (1.8-2.4)
[2021-08-15 12:02] LABS: ACTIVATED PTT 33.3 SECONDS (25.2-36.5); INR 1.53 (0.83-1.09); PROTHROMBIN TIME (PATIENT) 17.7 SEC (9.7-13.0)
[2021-08-15 12:03] LABS: SGOT/AST 28 U/L (15-37)
[2021-08-15 12:04] LABS: BILIRUBIN,TOTAL 0.8 mg/dL (0.2-1); SGPT/ALT 34 U/L (13-61)
[2021-08-15 12:05] LABS: TOT PROT 7.8 g/dl (6.4-8.2)
[2021-08-15 12:06] LABS: ALK PHOS 118 U/L (45-117)
[2021-08-15] MEDS ORDERED: SODIUM CHLORIDE 250 ML IV PRN ×3 (14:52→15:37)
[2021-08-15] MEDS ORDERED: EPOETIN ALFA-EPBX 10,000 UNIT/ML VIAL IVPUSH ONE (16:00)
[2021-08-15] MEDS: HEPARIN NA (PORCINE) 5,000 UNITS/ML 1ML VIAL SQ SCH (20:45)
[2021-08-15] MEDS: INSULIN SLIDING SCALE (NOVOLOG) 1 VIAL SQ SCH ×2 (23:20→23:22)
[2021-08-15] MEDS ORDERED: HEPARIN NA (PORCINE) 5,000 UNITS/ML 1ML VIAL ONE (23:41)
[2021-08-16] MEDS: HEPARIN NA (PORCINE) 5,000 UNITS/ML 1ML VIAL SQ SCH ×4 (01:08→22:03)
[2021-08-16] MEDS: LABETALOL HCL 200 MG TABLET (FP) PO SCH ×3 (01:08→22:03)
[2021-08-16 03:26] VITALS: BMI 29.5
[2021-08-16] MEDS: INSULIN SLIDING SCALE (NOVOLOG) 1 VIAL SQ SCH ×4 (06:03→22:03)
[2021-08-16 07:16] LABS: BASO % 0.9 % (0-2.0); HEMATOCRIT 23.8 % (35.4-49); LYMPH % 15.4 % (8-40); MCH 30.1 pg (25.7-33.7); MCHC 33.4 g/dl (32.0-35.9); MEAN PLT VOLUME 7.1 fl (7.5-11.1); MONO % 11.9 % (3.8-10.2); NEUT % 68.8 % (42.8-82.8); PLATELET COUNT 189 10^3/uL (134-434); RBC 2.65 M/mm3 (4.00-5.60); WHITE BLOOD COUNT 4.6 K/mm3 (4.0-10.0)
[2021-08-16 07:44] LABS: MAGNESIUM 1.8 mg/dL (1.8-2.4)
[2021-08-16 07:48] LABS: PHOSPHOROUS 4.2 mg/dL (2.5-4.9)
[2021-08-16 09:32] LABS: CALCIUM 7.4 mg/dL (8.5-10.1)
[2021-08-16 09:36] LABS: CREATININE 6.9 mg/dL (0.55-1.3)
[2021-08-16 09:38] LABS: BLOOD UREA NITROGEN 48.9 mg/dL (7-18)
[2021-08-16] MEDS: CLOPIDOGREL BISULFATE 75 MG TABLET (FP) PO SCH (11:20)
[2021-08-16] MEDS: LISINOPRIL 20 MG TABLET PO SCH (11:21)
[2021-08-16] MEDS: NIFEdipine E.R 60 MG TABLET PO SCH (11:22)
[2021-08-16] MEDS: ATORVASTATIN CA 80 MG TABLET (FP) PO SCH (22:03)
[2021-08-17] MEDS: INSULIN SLIDING SCALE (NOVOLOG) 1 VIAL SQ SCH ×4 (06:00→21:32)
[2021-08-17] MEDS: HEPARIN NA (PORCINE) 5,000 UNITS/ML 1ML VIAL SQ SCH ×3 (06:00→21:25)
[2021-08-17 11:12] LABS: BASO % 1.2 % (0-2.0); EOS % 3.5 % (0-4.5); HEMATOCRIT 25.2 % (35.4-49); LYMPH % 18.4 % (8-40); MCHC 31.7 g/dl (32.0-35.9); MEAN CELL VOLUME 91.5 fl (80-96); MEAN PLT VOLUME 7.4 fl (7.5-11.1); MONO % 12.7 % (3.8-10.2); NEUT % 64.2 % (42.8-82.8); PLATELET COUNT 209 10^3/uL (134-434); RBC 2.75 M/mm3 (4.00-5.60); RDW 17.8 % (11.9-15.9); WHITE BLOOD COUNT 4.4 K/mm3 (4.0-10.0)
[2021-08-17 11:31] LABS: CALCIUM 7.5 mg/dL (8.5-10.1)
[2021-08-17 11:32] LABS: ALBUMIN 2.7 g/dl (3.4-5.0); MAGNESIUM 1.8 mg/dL (1.8-2.4)
[2021-08-17 11:35] LABS: BLOOD UREA NITROGEN 36.4 mg/dL (7-18); CREATININE 5.7 mg/dL (0.55-1.3); PHOSPHOROUS 3.7 mg/dL (2.5-4.9)
[2021-08-17 11:36] LABS: TOT PROT 7.1 g/dl (6.4-8.2)
[2021-08-17 11:37] LABS: BILIRUBIN,TOTAL 0.8 mg/dL (0.2-1)
[2021-08-17] MEDS: guaiFENesin 200 MG/10 ML 10 ML UNIT-DOSE CUPS PO PRN (11:38)
[2021-08-17] MEDS: CLOPIDOGREL BISULFATE 75 MG TABLET (FP) PO SCH (17:09)
[2021-08-17] MEDS: NIFEdipine E.R 60 MG TABLET PO SCH (17:09)
[2021-08-17] MEDS: LABETALOL HCL 200 MG TABLET (FP) PO SCH ×2 (17:10→21:25)
[2021-08-17] MEDS: TORSEMIDE 100 MG TABLET PO SCH (17:10)
[2021-08-17] MEDS: TAMSULOSIN HCL 0.4 MG CAP PO SCH (17:10)
[2021-08-17] MEDS: LISINOPRIL 20 MG TABLET PO SCH (17:10)
[2021-08-17] MEDS: ATORVASTATIN CA 80 MG TABLET (FP) PO SCH (21:25)
[2021-08-17] MEDS: MELATONIN 5 MG TABLETS PO SCH (21:25)
[2021-08-18] MEDS: INSULIN SLIDING SCALE (NOVOLOG) 1 VIAL SQ SCH ×5 (06:35→21:21)
[2021-08-18] MEDS: HEPARIN NA (PORCINE) 5,000 UNITS/ML 1ML VIAL SQ SCH ×3 (06:35→21:21)
[2021-08-18] MEDS: TAMSULOSIN HCL 0.4 MG CAP PO SCH (08:31)
[2021-08-18] MEDS ORDERED: guaiFENesin/D-M SUGAR-FREE/ACLHOL-FREE 118 ML BOTTLE PO PRN (10:45)
[2021-08-18] MEDS ORDERED: SODIUM CHLORIDE NASAL SPRAY 44 ML BOTTLE NS PRN (10:46)
[2021-08-18] MEDS ORDERED: guaiFENesin/D-M SUGAR-FREE/ACLHOL-FREE 5 ML UNIT DOSE PO PRN (11:00)
[2021-08-18] MEDS ORDERED: SODIUM CHLORIDE 250 ML IV PRN ×2 (11:30)
[2021-08-18] MEDS ORDERED: EPOETIN ALFA-EPBX 20,000 UNIT/ML VIAL IVPUSH ONE (12:00)
[2021-08-18 12:15] LABS: BASO % 1.1 % (0-2.0); HEMATOCRIT 25.3 % (35.4-49); HEMOGLOBIN 7.9 GM/dL (11.7-16.9); LYMPH % 20.6 % (8-40); MCH 28.8 pg (25.7-33.7); MCHC 31.4 g/dl (32.0-35.9); MEAN CELL VOLUME 91.8 fl (80-96); MEAN PLT VOLUME 7.4 fl (7.5-11.1); MONO % 9.5 % (3.8-10.2); NEUT % 64.8 % (42.8-82.8); PLATELET COUNT 207 10^3/uL (134-434); RBC 2.76 M/mm3 (4.00-5.60); RDW 17.2 % (11.9-15.9); WHITE BLOOD COUNT 4.4 K/mm3 (4.0-10.0)
[2021-08-18 12:31] LABS: CALCIUM 7.6 mg/dL (8.5-10.1)
[2021-08-18 12:32] LABS: ALBUMIN 2.7 g/dl (3.4-5.0); MAGNESIUM 1.9 mg/dL (1.8-2.4)
[2021-08-18 12:35] LABS: CREATININE 7.2 mg/dL (0.55-1.3)
[2021-08-18 12:37] LABS: BILIRUBIN,TOTAL 0.6 mg/dL (0.2-1)
[2021-08-18] MEDS: guaiFENesin 200 MG/10 ML 10 ML UNIT-DOSE CUPS PO PRN (15:33)
[2021-08-18] MEDS: LISINOPRIL 20 MG TABLET PO SCH (15:35)
[2021-08-18] MEDS: TORSEMIDE 100 MG TABLET PO SCH (15:36)
[2021-08-18] MEDS: LABETALOL HCL 200 MG TABLET (FP) PO SCH (15:37)
[2021-08-18] MEDS: NIFEdipine E.R 60 MG TABLET PO SCH (15:37)
[2021-08-18] MEDS: CLOPIDOGREL BISULFATE 75 MG TABLET (FP) PO SCH (15:38)
[2021-08-18] MEDS: ATORVASTATIN CA 80 MG TABLET (FP) PO SCH (21:21)
[2021-08-18] MEDS: MELATONIN 5 MG TABLETS PO SCH (21:21)
[2021-08-19] MEDS: LABETALOL HCL 200 MG TABLET (FP) PO SCH ×2 (00:18→09:22)
[2021-08-19] MEDS: HEPARIN NA (PORCINE) 5,000 UNITS/ML 1ML VIAL SQ SCH (06:02)
[2021-08-19] MEDS: INSULIN SLIDING SCALE (NOVOLOG) 1 VIAL SQ SCH ×2 (06:03→11:23)
[2021-08-19 08:55] VITALS: BP 159/80; PULSE 92; TEMP 97.6
[2021-08-19] MEDS: TAMSULOSIN HCL 0.4 MG CAP PO SCH (09:00)
[2021-08-19] MEDS: LISINOPRIL 20 MG TABLET PO SCH (09:22)
[2021-08-19] MEDS: NIFEdipine E.R 60 MG TABLET PO SCH (09:22)
[2021-08-19] MEDS: TORSEMIDE 100 MG TABLET PO SCH (09:22)
[2021-08-19] MEDS: CLOPIDOGREL BISULFATE 75 MG TABLET (FP) PO SCH (09:22)
== END 2021-08-19 13:22 | disposition home or self-care (01) | DRG 640 ==
LOC: JER 10:00 → JERBED 10:42 → J4W 08-16 00:56 → J5S 08-16 18:57
PROVIDERS: ADMIT Internal Medicine; ATTEND Nurse Practitioner Acute Care
PROC: 5A1D70Z Performance of Urinary Filtration, Intermittent, Less than 6 Hours Per Day (ICD-10-PCS; principal; 2021-08-15)
DX: E87.70 Fluid overload, unspecified (principal); N18.6 End stage renal disease; I13.2 Hypertensive heart and chronic kidney disease with heart failure and with stage 5 chronic kidney disease, or end stage renal disease; I50.32 Chronic diastolic (congestive) heart failure; I25.10 Atherosclerotic heart disease of native coronary artery without angina pectoris; E11.22 Type 2 diabetes mellitus with diabetic chronic kidney disease; Z99.2 Dependence on renal dialysis; Z79.4 Long term (current) use of insulin; R19.7 Diarrhea, unspecified; Z91.15 Patient's noncompliance with renal dialysis; E11.51 Type 2 diabetes mellitus with diabetic peripheral angiopathy without gangrene; F20.9 Schizophrenia, unspecified
CPT/HCPCS: 36415; 71045-TC-FY; 80048; 80053; 82550; 82553; 82962; 83735; 84100; 84484; 85025; 85610; 85730; 86803; 87045; 87046; 87177; 87209; 87324; 87340; 87427; 87449; 93005; 93010; 94010; 97116-GP; 97162-GP; 99285-25; C9803; J1644; Q5106; U0003; U0005

== ENCOUNTER 2021-09-13 00:44 | Inpatient (IN) | payer OTHER ==
[2021-09-13 02:04] LABS: BASO % 1.6 % (0-2.0); EOS % 4.2 % (0-4.5); HEMATOCRIT 30.2 % (35.4-49); HEMOGLOBIN 9.6 GM/dL (11.7-16.9); LYMPH % 11.2 % (8-40); MCH 29.8 pg (25.7-33.7); MCHC 31.9 g/dl (32.0-35.9); MEAN CELL VOLUME 93.6 fl (80-96); MEAN PLT VOLUME 7.7 fl (7.5-11.1); MONO % 7.8 % (3.8-10.2); NEUT % 75.2 % (42.8-82.8); PLATELET COUNT 255 10^3/uL (134-434); RBC 3.23 M/mm3 (4.00-5.60); RDW 17.2 % (11.9-15.9)
[2021-09-13 02:11] LABS: INR 1.49 (0.83-1.09); PROTHROMBIN TIME (PATIENT) 17.2 SEC (9.7-13.0)
[2021-09-13 02:13] LABS: ACTIVATED PTT 31.6 SECONDS (25.2-36.5)
[2021-09-13 02:24] LABS: CALCIUM 7.8 mg/dL (8.5-10.1)
[2021-09-13 02:25] LABS: ALBUMIN 3.1 g/dl (3.4-5.0); BLOOD UREA NITROGEN 57.8 mg/dL (7-18)
[2021-09-13 02:28] LABS: CREATININE 7.1 mg/dL (0.55-1.3)
[2021-09-13 02:29] LABS: BILIRUBIN,TOTAL 0.5 mg/dL (0.2-1); TOT PROT 8.3 g/dl (6.4-8.2)
[2021-09-13 03:28] LABS: N-TERMINAL BNP 86276.5 pg/ml (5-125)
[2021-09-13] MEDS ORDERED: FUROSEMIDE 40 MG/4 ML INJECTABLE VIAL IVPB ONE (05:00)
[2021-09-13] MEDS ORDERED: LABETALOL HCL 200 MG TABLET (FP) PO SCH ×2 (05:02→22:00)
[2021-09-13] MEDS ORDERED: LABETALOL HCL 100 MG TABLET (FP) ONE ×2 (05:31→09:03)
[2021-09-13] MEDS ORDERED: FUROSEMIDE 40 MG/4 ML INJECTABLE VIAL ONE (05:31)
[2021-09-13] MEDS: HEPARIN NA (PORCINE) 5,000 UNITS/ML 1ML VIAL SQ SCH ×3 (05:50→21:24)
[2021-09-13] MEDS: INSULIN SLIDING SCALE (NOVOLOG) 1 VIAL SQ SCH ×4 (08:11→21:25)
[2021-09-13] MEDS ORDERED: SODIUM CHLORIDE 250 ML IV PRN (08:32)
[2021-09-13] MEDS ORDERED: LISINOPRIL 20 MG TABLET ONE (09:03)
[2021-09-13] MEDS ORDERED: BACITRACIN 0.9 GM PACKET ONE (09:03)
[2021-09-13] MEDS ORDERED: TAMSULOSIN HCL 0.4 MG CAP ONE (09:03)
[2021-09-13] MEDS ORDERED: NIFEdipine E.R. 30 MG TABLET ONE (09:03)
[2021-09-13] MEDS: LISINOPRIL 20 MG TABLET PO SCH (09:09)
[2021-09-13] MEDS: TAMSULOSIN HCL 0.4 MG CAP PO SCH (09:09)
[2021-09-13] MEDS ORDERED: NIFEdipine E.R 60 MG TABLET PO SCH (10:00)
[2021-09-13 10:57] LABS: BASO % 1.2 % (0-2.0); EOS % 4.7 % (0-4.5); HEMATOCRIT 28.2 % (35.4-49); LYMPH % 16.4 % (8-40); MCH 29.3 pg (25.7-33.7); MEAN CELL VOLUME 91.8 fl (80-96); MEAN PLT VOLUME 7.4 fl (7.5-11.1); MONO % 9.6 % (3.8-10.2); NEUT % 68.1 % (42.8-82.8); PLATELET COUNT 234 10^3/uL (134-434); RBC 3.07 M/mm3 (4.00-5.60); RDW 17.3 % (11.9-15.9)
[2021-09-13 11:21] LABS: BLOOD UREA NITROGEN 69.1 mg/dL (7-18); MAGNESIUM 1.9 mg/dL (1.8-2.4)
[2021-09-13 11:24] LABS: CREATININE 7.3 mg/dL (0.55-1.3); PHOSPHOROUS 4.7 mg/dL (2.5-4.9)
[2021-09-13 11:25] LABS: BILIRUBIN,TOTAL 0.8 mg/dL (0.2-1)
[2021-09-13 11:26] LABS: TOT PROT 7.6 g/dl (6.4-8.2)
[2021-09-13] MEDS ORDERED: LABETALOL HCL 100 MG TABLET (FP) PO ONE (13:17)
[2021-09-13] MEDS ORDERED: NIFEdipine E.R. 30 MG TABLET PO ONE (13:30)
[2021-09-13 16:06] LABS: CALCIUM 8.1 mg/dL (8.5-10.1)
[2021-09-13 16:07] LABS: BLOOD UREA NITROGEN 67.8 mg/dL (7-18)
[2021-09-13 16:10] LABS: CREATININE 7.4 mg/dL (0.55-1.3)
[2021-09-13] MEDS: BACITRACIN 15 GM TUBE TOPICAL OINTMENT TP SCH (19:45)
[2021-09-13] MEDS: INSULIN (LEVEMIR) 100 UNITS/ML UNITS SQ SCH (21:24)
[2021-09-13] MEDS: LABETALOL HCL 200 MG TABLET (FP) PO SCH (21:25)
[2021-09-13] MEDS: ATORVASTATIN CA 80 MG TABLET (FP) PO SCH (21:25)
[2021-09-13 23:15] VITALS: BMI 29.1
[2021-09-14] MEDS: BENZOCAINE/MENTH/CETYLPYRD CL 1 EACH LOZENGE MM PRN ×3 (00:18→17:44)
[2021-09-14] MEDS ORDERED: MELATONIN 5 MG TABLETS PO ONE (05:27)
[2021-09-14] MEDS: HEPARIN NA (PORCINE) 5,000 UNITS/ML 1ML VIAL SQ SCH ×3 (06:21→21:21)
[2021-09-14] MEDS: INSULIN SLIDING SCALE (NOVOLOG) 1 VIAL SQ SCH ×4 (06:21→21:30)
[2021-09-14] MEDS: amLODIPine BESYLATE 5 MG TABLET (FP) PO SCH (09:59)
[2021-09-14] MEDS: NIFEdipine E.R. 90 MG TABLET PO SCH (09:59)
[2021-09-14] MEDS: CLOPIDOGREL BISULFATE 75 MG TABLET (FP) PO SCH (09:59)
[2021-09-14] MEDS: BACITRACIN 15 GM TUBE TOPICAL OINTMENT TP SCH (09:59)
[2021-09-14] MEDS: LISINOPRIL 20 MG TABLET PO SCH (09:59)
[2021-09-14] MEDS: TAMSULOSIN HCL 0.4 MG CAP PO SCH (09:59)
[2021-09-14] MEDS: LABETALOL HCL 200 MG TABLET (FP) PO SCH (09:59)
[2021-09-14] MEDS ORDERED: CLOPIDOGREL BISULFATE 75 MG TABLET (FP) PO SCH (10:00)
[2021-09-14 12:53] LABS: HEMATOCRIT 26.5 % (35.4-49); HEMOGLOBIN 8.7 GM/dL (11.7-16.9); MCH 29.9 pg (25.7-33.7); MCHC 32.9 g/dl (32.0-35.9); MEAN CELL VOLUME 90.9 fl (80-96); MEAN PLT VOLUME 7.3 fl (7.5-11.1); PLATELET COUNT 214 10^3/uL (134-434); RBC 2.92 M/mm3 (4.00-5.60); WHITE BLOOD COUNT 5.3 K/mm3 (4.0-10.0)
[2021-09-14 13:10] LABS: CALCIUM 7.8 mg/dL (8.5-10.1)
[2021-09-14 13:11] LABS: BLOOD UREA NITROGEN 47.2 mg/dL (7-18); MAGNESIUM 1.9 mg/dL (1.8-2.4)
[2021-09-14 13:14] LABS: CREATININE 5.9 mg/dL (0.55-1.3); PHOSPHOROUS 4.2 mg/dL (2.5-4.9)
[2021-09-14] MEDS: ATORVASTATIN CA 80 MG TABLET (FP) PO SCH (21:22)
[2021-09-14] MEDS: INSULIN (LEVEMIR) 100 UNITS/ML UNITS SQ SCH (21:31)
[2021-09-15] MEDS: LABETALOL HCL 200 MG TABLET (FP) PO SCH ×3 (00:33→21:58)
[2021-09-15] MEDS: HEPARIN NA (PORCINE) 5,000 UNITS/ML 1ML VIAL SQ SCH ×3 (05:25→21:59)
[2021-09-15] MEDS: INSULIN SLIDING SCALE (NOVOLOG) 1 VIAL SQ SCH ×4 (06:18→21:59)
[2021-09-15 08:32] LABS: HEMATOCRIT 26.9 % (35.4-49); HEMOGLOBIN 8.9 GM/dL (11.7-16.9); MCHC 33.1 g/dl (32.0-35.9); MEAN CELL VOLUME 90.7 fl (80-96); MEAN PLT VOLUME 7.1 fl (7.5-11.1); PLATELET COUNT 219 10^3/uL (134-434); RBC 2.97 M/mm3 (4.00-5.60); RDW 16.9 % (11.9-15.9); WHITE BLOOD COUNT 4.7 K/mm3 (4.0-10.0)
[2021-09-15 08:41] LABS: CALCIUM 8.2 mg/dL (8.5-10.1)
[2021-09-15 08:43] LABS: CREATININE 7.1 mg/dL (0.55-1.3); PHOSPHOROUS 5.6 mg/dL (2.5-4.9)
[2021-09-15] MEDS: TAMSULOSIN HCL 0.4 MG CAP PO SCH (08:48)
[2021-09-15] MEDS: CLOPIDOGREL BISULFATE 75 MG TABLET (FP) PO SCH (09:25)
[2021-09-15] MEDS: BENZOCAINE/MENTH/CETYLPYRD CL 1 EACH LOZENGE MM PRN ×3 (09:30→19:45)
[2021-09-15] MEDS: NIFEdipine E.R. 90 MG TABLET PO SCH (10:30)
[2021-09-15] MEDS: amLODIPine BESYLATE 5 MG TABLET (FP) PO SCH (10:30)
[2021-09-15] MEDS: LISINOPRIL 20 MG TABLET PO SCH (10:30)
[2021-09-15] MEDS ORDERED: EPOETIN ALFA-EPBX 10,000 UNIT/ML VIAL IVPUSH ONE (13:00)
[2021-09-15] MEDS ORDERED: SODIUM CHLORIDE 250 ML IV PRN (13:00)
[2021-09-15] MEDS: BACITRACIN 15 GM TUBE TOPICAL OINTMENT TP SCH (16:28)
[2021-09-15] MEDS: guaiFENesin/CODEINE 5 ML UNIT-DOSE CUPS PO PRN (16:56)
[2021-09-15] MEDS: ATORVASTATIN CA 80 MG TABLET (FP) PO SCH (21:58)
[2021-09-15] MEDS: INSULIN (LEVEMIR) 100 UNITS/ML UNITS SQ SCH (21:58)
[2021-09-15] MEDS ORDERED: ACETAMINOPHEN 500 MG TABLET (FP) PO ONE (22:17)
[2021-09-16] MEDS: INSULIN SLIDING SCALE (NOVOLOG) 1 VIAL SQ SCH ×3 (05:59→17:33)
[2021-09-16] MEDS: BENZOCAINE/MENTH/CETYLPYRD CL 1 EACH LOZENGE MM PRN (05:59)
[2021-09-16] MEDS: HEPARIN NA (PORCINE) 5,000 UNITS/ML 1ML VIAL SQ SCH ×2 (05:59→15:50)
[2021-09-16 09:59] LABS: HEMATOCRIT 26.8 % (35.4-49); HEMOGLOBIN 8.8 GM/dL (11.7-16.9); MCH 30.1 pg (25.7-33.7); MCHC 32.8 g/dl (32.0-35.9); MEAN CELL VOLUME 91.8 fl (80-96); MEAN PLT VOLUME 7.2 fl (7.5-11.1); PLATELET COUNT 195 10^3/uL (134-434); RBC 2.92 M/mm3 (4.00-5.60); RDW 17.2 % (11.9-15.9); WHITE BLOOD COUNT 5.1 K/mm3 (4.0-10.0)
[2021-09-16] MEDS: CLOPIDOGREL BISULFATE 75 MG TABLET (FP) PO SCH (10:04)
[2021-09-16] MEDS: LABETALOL HCL 200 MG TABLET (FP) PO SCH (10:04)
[2021-09-16] MEDS: NIFEdipine E.R. 90 MG TABLET PO SCH (10:04)
[2021-09-16] MEDS: amLODIPine BESYLATE 5 MG TABLET (FP) PO SCH (10:04)
[2021-09-16] MEDS: TAMSULOSIN HCL 0.4 MG CAP PO SCH (10:04)
[2021-09-16] MEDS: LISINOPRIL 20 MG TABLET PO SCH (10:04)
[2021-09-16 10:22] LABS: CALCIUM 8.1 mg/dL (8.5-10.1)
[2021-09-16 10:23] LABS: BLOOD UREA NITROGEN 50.5 mg/dL (7-18); MAGNESIUM 2.1 mg/dL (1.8-2.4)
[2021-09-16 10:26] LABS: CREATININE 5.6 mg/dL (0.55-1.3)
[2021-09-16] MEDS: BACITRACIN 15 GM TUBE TOPICAL OINTMENT TP SCH (15:52)
[2021-09-16] MEDS: ACETAMINOPHEN 325 MG TABLET (FP) PO PRN (17:28)
[2021-09-17] MEDS: ATORVASTATIN CA 80 MG TABLET (FP) PO SCH ×2 (00:26→21:47)
[2021-09-17] MEDS: LABETALOL HCL 200 MG TABLET (FP) PO SCH ×3 (00:26→21:48)
[2021-09-17] MEDS: HEPARIN NA (PORCINE) 5,000 UNITS/ML 1ML VIAL SQ SCH ×4 (00:26→21:47)
[2021-09-17] MEDS: BENZOCAINE/MENTH/CETYLPYRD CL 1 EACH LOZENGE MM PRN ×2 (00:27→11:50)
[2021-09-17] MEDS: INSULIN SLIDING SCALE (NOVOLOG) 1 VIAL SQ SCH ×5 (00:27→21:50)
[2021-09-17] MEDS: INSULIN (LEVEMIR) 100 UNITS/ML UNITS SQ SCH ×2 (00:27→21:48)
[2021-09-17 08:29] LABS: HEMATOCRIT 25.4 % (35.4-49); HEMOGLOBIN 8.2 GM/dL (11.7-16.9); MCH 29.9 pg (25.7-33.7); MCHC 32.4 g/dl (32.0-35.9); MEAN CELL VOLUME 92.3 fl (80-96); MEAN PLT VOLUME 7.3 fl (7.5-11.1); PLATELET COUNT 176 10^3/uL (134-434); RBC 2.75 M/mm3 (4.00-5.60); RDW 17.2 % (11.9-15.9); WHITE BLOOD COUNT 4.7 K/mm3 (4.0-10.0)
[2021-09-17 08:42] LABS: BLOOD UREA NITROGEN 65.9 mg/dL (7-18); CALCIUM 7.9 mg/dL (8.5-10.1)
[2021-09-17 08:46] LABS: CREATININE 6.9 mg/dL (0.55-1.3); PHOSPHOROUS 4.9 mg/dL (2.5-4.9)
[2021-09-17] MEDS: NIFEdipine E.R. 90 MG TABLET PO SCH (11:43)
[2021-09-17] MEDS: CLOPIDOGREL BISULFATE 75 MG TABLET (FP) PO SCH (11:43)
[2021-09-17] MEDS: LISINOPRIL 20 MG TABLET PO SCH (11:44)
[2021-09-17] MEDS: amLODIPine BESYLATE 5 MG TABLET (FP) PO SCH (11:44)
[2021-09-17] MEDS: TAMSULOSIN HCL 0.4 MG CAP PO SCH (11:46)
[2021-09-17] MEDS: guaiFENesin/CODEINE 5 ML UNIT-DOSE CUPS PO PRN (12:34)
[2021-09-17] MEDS: BACITRACIN 15 GM TUBE TOPICAL OINTMENT TP SCH (15:33)
[2021-09-18] MEDS: INSULIN SLIDING SCALE (NOVOLOG) 1 VIAL SQ SCH ×2 (06:29→13:40)
[2021-09-18] MEDS: HEPARIN NA (PORCINE) 5,000 UNITS/ML 1ML VIAL SQ SCH ×2 (06:30→15:10)
[2021-09-18] MEDS: ACETAMINOPHEN 325 MG TABLET (FP) PO PRN (08:54)
[2021-09-18] MEDS: BENZOCAINE/MENTH/CETYLPYRD CL 1 EACH LOZENGE MM PRN (09:01)
[2021-09-18] MEDS: LABETALOL HCL 200 MG TABLET (FP) PO SCH (10:00)
[2021-09-18 11:42] LABS: HEMATOCRIT 25.3 % (35.4-49); HEMOGLOBIN 8.2 GM/dL (11.7-16.9); MCH 29.9 pg (25.7-33.7); MCHC 32.2 g/dl (32.0-35.9); MEAN PLT VOLUME 8.6 fl (7.5-11.1); PLATELET COUNT 175 10^3/uL (134-434); RBC 2.72 M/mm3 (4.00-5.60); RDW 16.9 % (11.9-15.9); WHITE BLOOD COUNT 5.9 K/mm3 (4.0-10.0)
[2021-09-18] MEDS ORDERED: SODIUM CHLORIDE 250 ML IV PRN (12:00)
[2021-09-18] MEDS ORDERED: EPOETIN ALFA-EPBX 10,000 UNIT/ML VIAL IVPUSH ONE (12:00)
[2021-09-18 12:01] LABS: CHLORIDE 102 mmol/L (98-107); SODIUM 137 mmol/L (136-145)
[2021-09-18 12:02] LABS: ANION GAP 10 MMOL/L (8-16); BLOOD UREA NITROGEN 80.7 mg/dL (7-18); CO2 25 mmol/L (21-32); GLUCOSE,RANDOM 163 mg/dL (74-106)
[2021-09-18 12:05] LABS: PHOSPHOROUS 4.6 mg/dL (2.5-4.9)
[2021-09-18 12:18] LABS: CREATININE 8.2 mg/dL (0.55-1.3)
[2021-09-18 14:43] VITALS: BP 137/65; PULSE 75; TEMP 98.7
[2021-09-18] MEDS: LISINOPRIL 20 MG TABLET PO SCH (15:08)
[2021-09-18] MEDS: TAMSULOSIN HCL 0.4 MG CAP PO SCH (15:09)
[2021-09-18] MEDS: amLODIPine BESYLATE 5 MG TABLET (FP) PO SCH (15:09)
[2021-09-18] MEDS: NIFEdipine E.R. 90 MG TABLET PO SCH (15:09)
[2021-09-18] MEDS: CLOPIDOGREL BISULFATE 75 MG TABLET (FP) PO SCH (15:09)
[2021-09-18] MEDS: BACITRACIN 15 GM TUBE TOPICAL OINTMENT TP SCH (15:09)
== END 2021-09-18 15:58 | disposition home or self-care (01) | DRG 291 ==
LOC: JER 00:44 → JERBED 03:31 → J5S 18:36
PROVIDERS: ADMIT Hospitalist; ATTEND Internal Medicine
PROC: 5A1D70Z Performance of Urinary Filtration, Intermittent, Less than 6 Hours Per Day (ICD-10-PCS; principal; 2021-09-13)
DX: I13.2 Hypertensive heart and chronic kidney disease with heart failure and with stage 5 chronic kidney disease, or end stage renal disease (principal); N18.6 End stage renal disease; L97.529 Non-pressure chronic ulcer of other part of left foot with unspecified severity; L97.519 Non-pressure chronic ulcer of other part of right foot with unspecified severity; E11.22 Type 2 diabetes mellitus with diabetic chronic kidney disease; I50.32 Chronic diastolic (congestive) heart failure; Z99.2 Dependence on renal dialysis; Z86.16 Personal history of COVID-19; E78.5 Hyperlipidemia, unspecified; I25.10 Atherosclerotic heart disease of native coronary artery without angina pectoris; I16.0 Hypertensive urgency; E11.51 Type 2 diabetes mellitus with diabetic peripheral angiopathy without gangrene; E11.621 Type 2 diabetes mellitus with foot ulcer; D64.9 Anemia, unspecified
CPT/HCPCS: 36415; 71045-TC-FY; 80048; 80053; 82962; 83036; 83735; 83880; 84100; 84484; 85025; 85027; 85379; 85610; 85730; 86803; 87040; 87077; 87081; 87340; 93005; 93010; 93970-TC; 99285-25; C9803; J1644; Q5106; U0003; U0005

== ENCOUNTER 2021-11-27 12:44 | Inpatient (IN) | payer OTHER ==
[2021-11-27] MEDS ORDERED: ACETAMINOPHEN 500 MG TABLET (FP) PO ONE (14:15)
[2021-11-27] MEDS ORDERED: ACETAMINOPHEN 325 MG TABLET (FP) ONE (14:36)
[2021-11-27] MEDS ORDERED: VANCOMYCIN 1 GM in D5W (PRE-DOCKED) 1,000 MG/250 ML IVPB ONE (15:44)
[2021-11-27] MEDS ORDERED: PIPERACILLIN/TAZOB 4.5 GM 4.5 GM in DEXTROSE 5%-WATER 100 ML IVPB ONE (15:44)
[2021-11-27 15:52] LABS: VENOUS BASE EXCESS -6.9 mmol/L (-2-2); VENOUS O2 SATURATION 83.5 % (70-80); VENOUS PCO2 37.1 mmHg (38-52); VENOUS PH 7.317 (7.310-7.410)
[2021-11-27 15:54] LABS: BASO % 0.8 % (0-2.0); EOS % 1.7 % (0-4.5); HEMATOCRIT 31.4 % (35.4-49); HEMOGLOBIN 10.2 GM/dL (11.7-16.9); LYMPH % 6.5 % (8-40); MCH 29.2 pg (25.7-33.7); MCHC 32.3 g/dl (32.0-35.9); MEAN CELL VOLUME 90.4 fl (80-96); MEAN PLT VOLUME 8.5 fl (7.5-11.1); MONO % 9.5 % (3.8-10.2); NEUT % 81.5 % (42.8-82.8); PLATELET COUNT 315 10^3/uL (134-434); RBC 3.48 M/mm3 (4.00-5.60); RDW 14.9 % (11.9-15.9); WHITE BLOOD COUNT 11.3 K/mm3 (4.0-10.0)
[2021-11-27 16:18] LABS: CHLORIDE 99 mmol/L (98-107); SODIUM 136 mmol/L (136-145)
[2021-11-27 16:20] LABS: CALCIUM 8.3 mg/dL (8.5-10.1)
[2021-11-27 16:21] LABS: ALBUMIN 2.9 g/dl (3.4-5.0); ANION GAP 17 MMOL/L (8-16); BLOOD UREA NITROGEN 76.4 mg/dL (7-18); CO2 21 mmol/L (21-32); GLUCOSE,RANDOM 167 mg/dL (74-106)
[2021-11-27 16:22] LABS: INR 1.47 (0.83-1.09)
[2021-11-27 16:24] LABS: SGOT/AST 27 U/L (15-37); SGPT/ALT 43 U/L (13-61)
[2021-11-27 16:25] LABS: ACTIVATED PTT 32.6 SECONDS (25.2-36.5); TOT PROT 8.9 g/dl (6.4-8.2)
[2021-11-27 16:27] LABS: ALK PHOS 143 U/L (45-117)
[2021-11-27 16:31] LABS: CREATININE 9.1 mg/dL (0.55-1.3)
[2021-11-27] MEDS ORDERED: PIPERACILLIN/TAZOB 4.5 GM 4.5 GM/100 ML BAG IVPB ONE (16:41)
[2021-11-27] MEDS ORDERED: VANCOMYCIN 1 GRAM (PRE-DOCKED) 1,000 MG/250 ML BAG IVPB ONE (16:41)
[2021-11-27] MEDS ORDERED: MECLIZINE HCL 12.5 MG TABLET PO PRN (19:05)
[2021-11-27] MEDS ORDERED: BENZOCAINE/MENTH/CETYLPYRD CL 1 EACH LOZENGE MM PRN (19:07)
[2021-11-27] MEDS: ATORVASTATIN CA 80 MG TABLET (FP) PO SCH (23:30)
[2021-11-28] MEDS ORDERED: PIPERACILLIN/TAZOBACTAM 2.25 GM VIAL IVPB ONE ×3 (05:20→18:29)
[2021-11-28] MEDS ORDERED: DEXTROSE 5%-WATER - 50 ML IVPB ONE ×3 (05:21→18:29)
[2021-11-28] MEDS: PIPERACILLIN/TAZOB 2.25 GM 2.25 GM in DEXTROSE 5%-WATER - 50 ML IVPB SCH ×4 (05:58→18:40)
[2021-11-28] MEDS ORDERED: ACETAMINOPHEN 1000 MG/100 ML BAG IVPB ONE (06:10)
[2021-11-28] MEDS ORDERED: guaiFENesin/D-METHORPHAN HB 10 ML UNIT-DOSE CUPS PO ONE (06:10)
[2021-11-28] MEDS: TAMSULOSIN HCL 0.4 MG CAP PO SCH (09:07)
[2021-11-28 09:08] LABS: BASO % 1.1 % (0-2.0); EOS % 2.2 % (0-4.5); HEMATOCRIT 30.2 % (35.4-49); HEMOGLOBIN 9.7 GM/dL (11.7-16.9); LYMPH % 9.8 % (8-40); MCH 29.3 pg (25.7-33.7); MCHC 32.3 g/dl (32.0-35.9); MEAN CELL VOLUME 90.7 fl (80-96); MEAN PLT VOLUME 7.7 fl (7.5-11.1); MONO % 8.7 % (3.8-10.2); NEUT % 78.2 % (42.8-82.8); PLATELET COUNT 257 10^3/uL (134-434); RBC 3.33 M/mm3 (4.00-5.60); WHITE BLOOD COUNT 8.5 K/mm3 (4.0-10.0)
[2021-11-28 09:50] LABS: CHLORIDE 100 mmol/L (98-107); SODIUM 135 mmol/L (136-145)
[2021-11-28 09:52] LABS: GLUCOSE,RANDOM 151 mg/dL (74-106)
[2021-11-28 09:53] LABS: ALBUMIN 2.6 g/dl (3.4-5.0); ANION GAP 14 MMOL/L (8-16); BLOOD UREA NITROGEN 86.9 mg/dL (7-18); CALCIUM 7.7 mg/dL (8.5-10.1); CO2 21 mmol/L (21-32); MAGNESIUM 1.8 mg/dL (1.8-2.4)
[2021-11-28 09:56] LABS: PHOSPHOROUS 5.2 mg/dL (2.5-4.9); SGPT/ALT 30 U/L (13-61)
[2021-11-28 09:57] LABS: TOT PROT 7.4 g/dl (6.4-8.2)
[2021-11-28 09:58] LABS: SGOT/AST 11 U/L (15-37)
[2021-11-28 09:59] LABS: ALK PHOS 113 U/L (45-117); CREATININE 10.4 mg/dL (0.55-1.3)
[2021-11-28] MEDS: LISINOPRIL 20 MG TABLET PO SCH (10:54)
[2021-11-28] MEDS: NIFEdipine E.R 60 MG TABLET PO SCH (10:55)
[2021-11-28] MEDS: CLOPIDOGREL BISULFATE 75 MG TABLET (FP) PO SCH (15:55)
[2021-11-28] MEDS: INSULIN SLIDING SCALE (NOVOLOG) 1 VIAL SQ SCH ×2 (16:38→22:06)
[2021-11-28] MEDS ORDERED: LABETALOL HCL 200 MG TABLET (FP) PO SCH (22:00)
[2021-11-28] MEDS: HEPARIN NA (PORCINE) 5,000 UNITS/ML 1ML VIAL SQ SCH (22:01)
[2021-11-28] MEDS: ATORVASTATIN CA 80 MG TABLET (FP) PO SCH (22:01)
[2021-11-28] MEDS: MELATONIN 5 MG TABLETS PO SCH (22:01)
[2021-11-29] MEDS ORDERED: PIPERACILLIN/TAZOBACTAM 2.25 GM VIAL IVPB ONE ×3 (01:00→17:18)
[2021-11-29] MEDS ORDERED: DEXTROSE 5%-WATER - 50 ML IVPB ONE ×3 (01:00→17:19)
[2021-11-29] MEDS: PIPERACILLIN/TAZOB 2.25 GM 2.25 GM in DEXTROSE 5%-WATER - 50 ML IVPB SCH ×3 (02:37→17:33)
[2021-11-29] MEDS: guaiFENesin/D-METHORPHAN HB 10 ML UNIT-DOSE CUPS PO PRN ×2 (02:37→17:40)
[2021-11-29] MEDS ORDERED: PIPERACILLIN/TAZOB 2.25 GM 2.25 GM in DEXTROSE 5%-WATER - 50 ML IVPB SCH (05:00)
[2021-11-29] MEDS: HEPARIN NA (PORCINE) 5,000 UNITS/ML 1ML VIAL SQ SCH ×3 (06:01→21:56)
[2021-11-29] MEDS: INSULIN SLIDING SCALE (NOVOLOG) 1 VIAL SQ SCH ×4 (06:05→21:57)
[2021-11-29] MEDS ORDERED: SODIUM CHLORIDE 250 ML IV PRN (10:34)
[2021-11-29] MEDS ORDERED: EPOETIN ALFA-EPBX 4,000 UNIT/ML VIAL IVPUSH ONE (10:45)
[2021-11-29] MEDS ORDERED: VANCOMYCIN/WATER FOR INJ (PEG) 1 GM/200 ML BAG IVPB ONE (11:00)
[2021-11-29 12:06] LABS: HEMATOCRIT 26.9 % (35.4-49); HEMOGLOBIN 8.8 GM/dL (11.7-16.9); MCH 29.2 pg (25.7-33.7); MCHC 32.6 g/dl (32.0-35.9); MEAN CELL VOLUME 89.4 fl (80-96); MEAN PLT VOLUME 7.6 fl (7.5-11.1); PLATELET COUNT 225 10^3/uL (134-434); RBC 3.01 M/mm3 (4.00-5.60); RDW 14.9 % (11.9-15.9); WHITE BLOOD COUNT 7.4 K/mm3 (4.0-10.0)
[2021-11-29 12:30] LABS: CHLORIDE 101 mmol/L (98-107); SODIUM 135 mmol/L (136-145)
[2021-11-29 12:32] LABS: CALCIUM 7.5 mg/dL (8.5-10.1); GLUCOSE,RANDOM 106 mg/dL (74-106)
[2021-11-29 12:33] LABS: ALBUMIN 2.4 g/dl (3.4-5.0); ANION GAP 17 MMOL/L (8-16); BLOOD UREA NITROGEN 96.6 mg/dL (7-18); CO2 17 mmol/L (21-32)
[2021-11-29 12:35] LABS: SGOT/AST 12 U/L (15-37)
[2021-11-29 12:36] LABS: SGPT/ALT 29 U/L (13-61)
[2021-11-29 12:37] LABS: BILIRUBIN,TOTAL 0.8 mg/dL (0.2-1); TOT PROT 7.4 g/dl (6.4-8.2)
[2021-11-29 12:38] LABS: ALK PHOS 107 U/L (45-117)
[2021-11-29 12:40] LABS: CREATININE 11.8 mg/dL (0.55-1.3)
[2021-11-29] MEDS: TAMSULOSIN HCL 0.4 MG CAP PO SCH (16:00)
[2021-11-29] MEDS: NIFEdipine E.R 60 MG TABLET PO SCH (16:00)
[2021-11-29] MEDS: CLOPIDOGREL BISULFATE 75 MG TABLET (FP) PO SCH (16:01)
[2021-11-29] MEDS: LISINOPRIL 20 MG TABLET PO SCH (16:01)
[2021-11-29] MEDS: TORSEMIDE 100 MG TABLET PO SCH (16:30)
[2021-11-29] MEDS ORDERED: INSULIN (NOVOLOG) ASPART 100 UNITS/ML 10ML VIAL ONE (17:37)
[2021-11-29] MEDS: MELATONIN 5 MG TABLETS PO SCH (21:57)
[2021-11-29] MEDS: ATORVASTATIN CA 80 MG TABLET (FP) PO SCH (21:57)
[2021-11-30] MEDS ORDERED: DEXTROSE 5%-WATER - 50 ML IVPB ONE ×3 (01:14→16:57)
[2021-11-30] MEDS ORDERED: PIPERACILLIN/TAZOBACTAM 2.25 GM VIAL IVPB ONE ×3 (01:14→16:56)
[2021-11-30] MEDS: PIPERACILLIN/TAZOB 2.25 GM 2.25 GM in DEXTROSE 5%-WATER - 50 ML IVPB SCH ×3 (01:31→17:03)
[2021-11-30] MEDS: INSULIN SLIDING SCALE (NOVOLOG) 1 VIAL SQ SCH ×4 (06:03→22:47)
[2021-11-30] MEDS: HEPARIN NA (PORCINE) 5,000 UNITS/ML 1ML VIAL SQ SCH ×3 (06:03→22:41)
[2021-11-30] MEDS: TAMSULOSIN HCL 0.4 MG CAP PO SCH (08:11)
[2021-11-30 09:36] LABS: BASO % 0.8 % (0-2.0); EOS % 3.1 % (0-4.5); HEMATOCRIT 30.7 % (35.4-49); HEMOGLOBIN 9.8 GM/dL (11.7-16.9); MCH 28.8 pg (25.7-33.7); MCHC 31.9 g/dl (32.0-35.9); MEAN CELL VOLUME 90.1 fl (80-96); MEAN PLT VOLUME 7.3 fl (7.5-11.1); MONO % 9.8 % (3.8-10.2); NEUT % 75.3 % (42.8-82.8); PLATELET COUNT 288 10^3/uL (134-434); RBC 3.41 M/mm3 (4.00-5.60); WHITE BLOOD COUNT 7.6 K/mm3 (4.0-10.0)
[2021-11-30] MEDS: NIFEdipine E.R 60 MG TABLET PO SCH (10:12)
[2021-11-30] MEDS: CLOPIDOGREL BISULFATE 75 MG TABLET (FP) PO SCH (10:13)
[2021-11-30] MEDS: TORSEMIDE 100 MG TABLET PO SCH (10:13)
[2021-11-30] MEDS: LISINOPRIL 20 MG TABLET PO SCH (10:13)
[2021-11-30 11:39] LABS: ALBUMIN 2.5 g/dl (3.4-5.0); BILIRUBIN,TOTAL 1.3 mg/dL (0.2-1); BLOOD UREA NITROGEN 46.6 mg/dL (7-18); CALCIUM 7.9 mg/dL (8.5-10.1); CREATININE 7.1 mg/dL (0.55-1.3); MAGNESIUM 2.1 mg/dL (1.8-2.4); PHOSPHOROUS 3.6 mg/dL (2.5-4.9); TOT PROT 8.1 g/dl (6.4-8.2)
[2021-11-30] MEDS ORDERED: POTASSIUM CHLORIDE ORAL LIQUID 20 MEQ/15 ML PO ONE (13:00)
[2021-11-30] MEDS: ATORVASTATIN CA 80 MG TABLET (FP) PO SCH (22:41)
[2021-11-30] MEDS: MELATONIN 5 MG TABLETS PO SCH (22:42)
[2021-12-01] MEDS ORDERED: ACETAMINOPHEN 1000 MG/100 ML BAG IVPB ONE (00:48)
[2021-12-01] MEDS ORDERED: PIPERACILLIN/TAZOBACTAM 2.25 GM VIAL IVPB ONE ×2 (01:28→17:34)
[2021-12-01] MEDS ORDERED: DEXTROSE 5%-WATER - 50 ML IVPB ONE ×2 (01:28→17:34)
[2021-12-01] MEDS: PIPERACILLIN/TAZOB 2.25 GM 2.25 GM in DEXTROSE 5%-WATER - 50 ML IVPB SCH ×3 (02:02→17:37)
[2021-12-01] MEDS: HEPARIN NA (PORCINE) 5,000 UNITS/ML 1ML VIAL SQ SCH ×3 (06:04→21:54)
[2021-12-01] MEDS: INSULIN SLIDING SCALE (NOVOLOG) 1 VIAL SQ SCH ×4 (06:04→21:54)
[2021-12-01 08:34] LABS: BASO % 1.4 % (0-2.0); EOS % 4.5 % (0-4.5); HEMATOCRIT 29.9 % (35.4-49); HEMOGLOBIN 9.5 GM/dL (11.7-16.9); LYMPH % 15.8 % (8-40); MCH 28.5 pg (25.7-33.7); MCHC 31.6 g/dl (32.0-35.9); MEAN CELL VOLUME 90.2 fl (80-96); MEAN PLT VOLUME 8.1 fl (7.5-11.1); MONO % 9.1 % (3.8-10.2); NEUT % 69.2 % (42.8-82.8); PLATELET COUNT 286 10^3/uL (134-434); RBC 3.32 M/mm3 (4.00-5.60); WHITE BLOOD COUNT 6.2 K/mm3 (4.0-10.0)
[2021-12-01 08:57] LABS: CHLORIDE 102 mmol/L (98-107); SODIUM 138 mmol/L (136-145)
[2021-12-01 09:11] LABS: ALBUMIN 2.3 g/dl (3.4-5.0); ANION GAP 12 MMOL/L (8-16); BLOOD UREA NITROGEN 56.3 mg/dL (7-18); CALCIUM 7.7 mg/dL (8.5-10.1); CO2 25 mmol/L (21-32); GLUCOSE,RANDOM 140 mg/dL (74-106)
[2021-12-01 09:13] LABS: TOT PROT 7.3 g/dl (6.4-8.2)
[2021-12-01 09:14] LABS: PHOSPHOROUS 4.3 mg/dL (2.5-4.9); SGOT/AST 16 U/L (15-37); SGPT/ALT 33 U/L (13-61)
[2021-12-01 09:15] LABS: ALK PHOS 123 U/L (45-117)
[2021-12-01 09:18] LABS: CREATININE 8.3 mg/dL (0.55-1.3)
[2021-12-01] MEDS ORDERED: SODIUM CHLORIDE 250 ML IV PRN (10:00)
[2021-12-01] MEDS ORDERED: EPOETIN ALFA-EPBX 4,000 UNIT/ML VIAL IVPUSH ONE (10:00)
[2021-12-01] MEDS: NIFEdipine E.R 60 MG TABLET PO SCH (14:16)
[2021-12-01] MEDS: CLOPIDOGREL BISULFATE 75 MG TABLET (FP) PO SCH (14:16)
[2021-12-01] MEDS: LISINOPRIL 20 MG TABLET PO SCH (14:16)
[2021-12-01] MEDS: TAMSULOSIN HCL 0.4 MG CAP PO SCH (14:23)
[2021-12-01] MEDS: TORSEMIDE 100 MG TABLET PO SCH (14:23)
[2021-12-01] MEDS: MELATONIN 5 MG TABLETS PO SCH (21:54)
[2021-12-01] MEDS: ATORVASTATIN CA 80 MG TABLET (FP) PO SCH (21:54)
[2021-12-02] MEDS ORDERED: DEXTROSE 5%-WATER - 50 ML IVPB ONE ×3 (01:18→17:06)
[2021-12-02] MEDS ORDERED: PIPERACILLIN/TAZOBACTAM 2.25 GM VIAL IVPB ONE ×3 (01:18→17:06)
[2021-12-02] MEDS: PIPERACILLIN/TAZOB 2.25 GM 2.25 GM in DEXTROSE 5%-WATER - 50 ML IVPB SCH ×3 (01:22→17:18)
[2021-12-02] MEDS: guaiFENesin/D-METHORPHAN HB 10 ML UNIT-DOSE CUPS PO PRN ×2 (05:09→22:06)
[2021-12-02] MEDS: HEPARIN NA (PORCINE) 5,000 UNITS/ML 1ML VIAL SQ SCH ×3 (06:26→21:12)
[2021-12-02] MEDS: INSULIN SLIDING SCALE (NOVOLOG) 1 VIAL SQ SCH ×4 (06:26→21:13)
[2021-12-02 07:35] LABS: EOS % 4.8 % (0-4.5); HEMATOCRIT 29.9 % (35.4-49); HEMOGLOBIN 9.8 GM/dL (11.7-16.9); LYMPH % 13.9 % (8-40); MCH 29.4 pg (25.7-33.7); MCHC 32.6 g/dl (32.0-35.9); MEAN PLT VOLUME 7.3 fl (7.5-11.1); MONO % 9.7 % (3.8-10.2); NEUT % 70.6 % (42.8-82.8); PLATELET COUNT 312 10^3/uL (134-434); RBC 3.32 M/mm3 (4.00-5.60); RDW 14.9 % (11.9-15.9); WHITE BLOOD COUNT 6.8 K/mm3 (4.0-10.0)
[2021-12-02 07:52] LABS: BLOOD UREA NITROGEN 32.7 mg/dL (7-18)
[2021-12-02 07:55] LABS: CREATININE 5.5 mg/dL (0.55-1.3); PHOSPHOROUS 3.2 mg/dL (2.5-4.9)
[2021-12-02] MEDS: TAMSULOSIN HCL 0.4 MG CAP PO SCH (09:20)
[2021-12-02] MEDS: LISINOPRIL 20 MG TABLET PO SCH (09:21)
[2021-12-02] MEDS: NIFEdipine E.R 60 MG TABLET PO SCH (09:22)
[2021-12-02] MEDS: CLOPIDOGREL BISULFATE 75 MG TABLET (FP) PO SCH (09:22)
[2021-12-02] MEDS: TORSEMIDE 100 MG TABLET PO SCH (09:39)
[2021-12-02] MEDS: ATORVASTATIN CA 80 MG TABLET (FP) PO SCH (21:12)
[2021-12-02] MEDS: MELATONIN 5 MG TABLETS PO SCH (21:12)
[2021-12-03] MEDS: CLOTRIMAZOLE 1% CREAM TP SCH ×3 (00:46→22:43)
[2021-12-03] MEDS ORDERED: DEXTROSE 5%-WATER - 50 ML IVPB ONE ×3 (01:11→17:31)
[2021-12-03] MEDS ORDERED: PIPERACILLIN/TAZOBACTAM 2.25 GM VIAL IVPB ONE ×3 (01:11→17:31)
[2021-12-03] MEDS: PIPERACILLIN/TAZOB 2.25 GM 2.25 GM in DEXTROSE 5%-WATER - 50 ML IVPB SCH ×3 (01:16→18:24)
[2021-12-03] MEDS: HEPARIN NA (PORCINE) 5,000 UNITS/ML 1ML VIAL SQ SCH ×3 (06:30→23:11)
[2021-12-03] MEDS: INSULIN SLIDING SCALE (NOVOLOG) 1 VIAL SQ SCH ×4 (06:30→22:43)
[2021-12-03 08:25] LABS: BLOOD UREA NITROGEN 52.1 mg/dL (7-18); CALCIUM 8.3 mg/dL (8.5-10.1)
[2021-12-03 08:29] LABS: CREATININE 7.1 mg/dL (0.55-1.3)
[2021-12-03 09:09] LABS: HEMATOCRIT 29.5 % (35.4-49); HEMOGLOBIN 9.7 GM/dL (11.7-16.9); MCH 29.8 pg (25.7-33.7); MEAN CELL VOLUME 90.4 fl (80-96); MEAN PLT VOLUME 7.2 fl (7.5-11.1); PLATELET COUNT 328 10^3/uL (134-434); RBC 3.27 M/mm3 (4.00-5.60)
[2021-12-03 09:10] LABS: WHITE BLOOD COUNT 8.9 K/mm3 (4.0-10.0)
[2021-12-03] MEDS: CLOPIDOGREL BISULFATE 75 MG TABLET (FP) PO SCH (10:36)
[2021-12-03] MEDS: NIFEdipine E.R 60 MG TABLET PO SCH (10:36)
[2021-12-03] MEDS: LISINOPRIL 20 MG TABLET PO SCH (10:36)
[2021-12-03] MEDS: TAMSULOSIN HCL 0.4 MG CAP PO SCH (10:36)
[2021-12-03] MEDS: TORSEMIDE 100 MG TABLET PO SCH (10:36)
[2021-12-03] MEDS ORDERED: oxyCODONE HCL 5 MG TABLET PO ONE (18:44)
[2021-12-03] MEDS: ATORVASTATIN CA 80 MG TABLET (FP) PO SCH (22:43)
[2021-12-03] MEDS: MELATONIN 5 MG TABLETS PO SCH (22:43)
[2021-12-04] MEDS ORDERED: PIPERACILLIN/TAZOBACTAM 2.25 GM VIAL IVPB ONE ×3 (02:12→17:48)
[2021-12-04] MEDS ORDERED: DEXTROSE 5%-WATER - 50 ML IVPB ONE ×3 (02:12→17:48)
[2021-12-04] MEDS: PIPERACILLIN/TAZOB 2.25 GM 2.25 GM in DEXTROSE 5%-WATER - 50 ML IVPB SCH ×3 (02:36→18:00)
[2021-12-04] MEDS: HEPARIN NA (PORCINE) 5,000 UNITS/ML 1ML VIAL SQ SCH ×3 (06:21→21:03)
[2021-12-04] MEDS: INSULIN SLIDING SCALE (NOVOLOG) 1 VIAL SQ SCH ×3 (06:22→17:59)
[2021-12-04] MEDS ORDERED: EPOETIN ALFA-EPBX 3,000 UNIT, EPOETIN ALFA-EPBX 2,000 UNIT IVPUSH ONE (09:00)
[2021-12-04] MEDS ORDERED: SODIUM CHLORIDE 250 ML IV PRN (09:04)
[2021-12-04 09:08] LABS: HEMATOCRIT 27.9 % (35.4-49); HEMOGLOBIN 9.2 GM/dL (11.7-16.9); MCH 29.6 pg (25.7-33.7); MCHC 32.9 g/dl (32.0-35.9); MEAN CELL VOLUME 89.9 fl (80-96); MEAN PLT VOLUME 7.6 fl (7.5-11.1); PLATELET COUNT 342 10^3/uL (134-434); RDW 15.2 % (11.9-15.9); WHITE BLOOD COUNT 7.2 K/mm3 (4.0-10.0)
[2021-12-04 09:30] LABS: CHLORIDE 104 mmol/L (98-107); SODIUM 139 mmol/L (136-145)
[2021-12-04 09:32] LABS: CALCIUM 8.1 mg/dL (8.5-10.1)
[2021-12-04 09:33] LABS: ANION GAP 11 MMOL/L (8-16); BLOOD UREA NITROGEN 70.1 mg/dL (7-18); CO2 25 mmol/L (21-32); GLUCOSE,RANDOM 168 mg/dL (74-106)
[2021-12-04 09:38] LABS: CREATININE 8.5 mg/dL (0.55-1.3)
[2021-12-04] MEDS ORDERED: EPOETIN ALFA-EPBX 4,000 UNIT/ML VIAL SQ ONE (11:43)
[2021-12-04] MEDS: guaiFENesin/D-METHORPHAN HB 10 ML UNIT-DOSE CUPS PO PRN ×2 (13:21→21:04)
[2021-12-04] MEDS: TAMSULOSIN HCL 0.4 MG CAP PO SCH (13:22)
[2021-12-04] MEDS: LISINOPRIL 20 MG TABLET PO SCH (13:22)
[2021-12-04] MEDS: NIFEdipine E.R 60 MG TABLET PO SCH (13:22)
[2021-12-04] MEDS: CLOPIDOGREL BISULFATE 75 MG TABLET (FP) PO SCH (13:22)
[2021-12-04] MEDS: TORSEMIDE 100 MG TABLET PO SCH (13:23)
[2021-12-04] MEDS: CLOTRIMAZOLE 1% CREAM TP SCH ×2 (13:24→21:04)
[2021-12-04] MEDS ORDERED: INSULIN (NOVOLOG) ASPART 100 UNITS/ML 10ML VIAL ONE (19:07)
[2021-12-04] MEDS: MELATONIN 5 MG TABLETS PO SCH (21:04)
[2021-12-04] MEDS: ACETAMINOPHEN 325 MG TABLET (FP) PO PRN (21:04)
[2021-12-04] MEDS: ATORVASTATIN CA 80 MG TABLET (FP) PO SCH (21:04)
[2021-12-04] MEDS ORDERED: LOPERAMIDE HCL 2 MG CAPSULE PO ONE (21:28)
[2021-12-05] MEDS: INSULIN SLIDING SCALE (NOVOLOG) 1 VIAL SQ SCH ×5 (00:02→21:48)
[2021-12-05] MEDS: PIPERACILLIN/TAZOB 2.25 GM 2.25 GM in DEXTROSE 5%-WATER - 50 ML IVPB SCH ×3 (02:13→18:50)
[2021-12-05] MEDS: HEPARIN NA (PORCINE) 5,000 UNITS/ML 1ML VIAL SQ SCH ×3 (06:33→21:40)
[2021-12-05 09:08] LABS: BASO % 1.2 % (0-2.0); EOS % 4.1 % (0-4.5); HEMATOCRIT 30.2 % (35.4-49); HEMOGLOBIN 9.9 GM/dL (11.7-16.9); LYMPH % 20.4 % (8-40); MCH 29.8 pg (25.7-33.7); MCHC 32.7 g/dl (32.0-35.9); MEAN PLT VOLUME 7.1 fl (7.5-11.1); MONO % 8.3 % (3.8-10.2); PLATELET COUNT 337 10^3/uL (134-434); RBC 3.32 M/mm3 (4.00-5.60); RDW 15.1 % (11.9-15.9); WHITE BLOOD COUNT 6.3 K/mm3 (4.0-10.0)
[2021-12-05 09:43] LABS: CREATININE 5.3 mg/dL (0.55-1.3)
[2021-12-05 09:45] LABS: TOT PROT 8.1 g/dl (6.4-8.2)
[2021-12-05 09:47] LABS: ALBUMIN 2.6 g/dl (3.4-5.0)
[2021-12-05 09:49] LABS: CALCIUM 8.2 mg/dL (8.5-10.1)
[2021-12-05] MEDS ORDERED: PIPERACILLIN/TAZOBACTAM 2.25 GM VIAL IVPB ONE ×2 (09:51→18:45)
[2021-12-05] MEDS ORDERED: DEXTROSE 5%-WATER - 50 ML IVPB ONE ×2 (09:52→18:45)
[2021-12-05 09:56] LABS: BILIRUBIN,TOTAL 1.5 mg/dL (0.2-1)
[2021-12-05 09:57] LABS: BLOOD UREA NITROGEN 34.3 mg/dL (7-18)
[2021-12-05] MEDS: CLOPIDOGREL BISULFATE 75 MG TABLET (FP) PO SCH (09:59)
[2021-12-05] MEDS: TAMSULOSIN HCL 0.4 MG CAP PO SCH (10:00)
[2021-12-05] MEDS: NIFEdipine E.R 60 MG TABLET PO SCH (10:02)
[2021-12-05] MEDS: LISINOPRIL 20 MG TABLET PO SCH (10:02)
[2021-12-05] MEDS: TORSEMIDE 100 MG TABLET PO SCH (10:02)
[2021-12-05] MEDS: VITAMIN B COMP W-C 1 EA TABLET (NEPHRO-VITE) PO SCH (10:03)
[2021-12-05] MEDS: CLOTRIMAZOLE 1% CREAM TP SCH ×2 (10:04→21:40)
[2021-12-05] MEDS ORDERED: SODIUM CHLORIDE 250 ML IV PRN (12:08)
[2021-12-05] MEDS: ATORVASTATIN CA 80 MG TABLET (FP) PO SCH (21:40)
[2021-12-05] MEDS: MELATONIN 5 MG TABLETS PO SCH (21:40)
[2021-12-05] MEDS ORDERED: oxyCODONE HCL 5 MG TABLET PO ONE (21:42)
[2021-12-05] MEDS: guaiFENesin/D-METHORPHAN HB 10 ML UNIT-DOSE CUPS PO PRN (22:17)
[2021-12-06] MEDS ORDERED: PIPERACILLIN/TAZOBACTAM 2.25 GM VIAL IVPB ONE ×3 (00:56→17:20)
[2021-12-06] MEDS ORDERED: DEXTROSE 5%-WATER - 50 ML IVPB ONE ×3 (00:56→17:20)
[2021-12-06] MEDS: PIPERACILLIN/TAZOB 2.25 GM 2.25 GM in DEXTROSE 5%-WATER - 50 ML IVPB SCH ×3 (01:43→18:09)
[2021-12-06] MEDS: HEPARIN NA (PORCINE) 5,000 UNITS/ML 1ML VIAL SQ SCH ×3 (06:18→21:40)
[2021-12-06] MEDS: INSULIN SLIDING SCALE (NOVOLOG) 1 VIAL SQ SCH ×4 (06:19→21:41)
[2021-12-06] MEDS: TAMSULOSIN HCL 0.4 MG CAP PO SCH (08:18)
[2021-12-06] MEDS: ACETAMINOPHEN 325 MG TABLET (FP) PO PRN ×2 (08:18→14:23)
[2021-12-06 10:26] LABS: HEMATOCRIT 28.6 % (35.4-49); HEMOGLOBIN 9.2 GM/dL (11.7-16.9); MCH 29.2 pg (25.7-33.7); MCHC 32.2 g/dl (32.0-35.9); MEAN CELL VOLUME 90.9 fl (80-96); MEAN PLT VOLUME 7.5 fl (7.5-11.1); PLATELET COUNT 337 10^3/uL (134-434); RBC 3.15 M/mm3 (4.00-5.60); RDW 15.1 % (11.9-15.9); WHITE BLOOD COUNT 8.4 K/mm3 (4.0-10.0)
[2021-12-06 10:46] LABS: BLOOD UREA NITROGEN 41.4 mg/dL (7-18); CALCIUM 8.2 mg/dL (8.5-10.1)
[2021-12-06 10:50] LABS: CREATININE 5.6 mg/dL (0.55-1.3)
[2021-12-06] MEDS ORDERED: EPOETIN ALFA-EPBX 2,000 UNIT, EPOETIN ALFA-EPBX 3,000 UNIT IVPUSH ONE (11:00)
[2021-12-06] MEDS ORDERED: EPOETIN ALFA-EPBX 3,000 UNIT, EPOETIN ALFA-EPBX 2,000 UNIT IVPUSH ONE (12:00)
[2021-12-06] MEDS ORDERED: EPOETIN ALFA-EPBX 4,000 UNIT/ML VIAL SQ ONE (12:08)
[2021-12-06] MEDS: CLOPIDOGREL BISULFATE 75 MG TABLET (FP) PO SCH (13:44)
[2021-12-06] MEDS: VITAMIN B COMP W-C 1 EA TABLET (NEPHRO-VITE) PO SCH (13:44)
[2021-12-06] MEDS: NIFEdipine E.R 60 MG TABLET PO SCH (13:45)
[2021-12-06] MEDS: TORSEMIDE 100 MG TABLET PO SCH (13:46)
[2021-12-06] MEDS: LISINOPRIL 20 MG TABLET PO SCH (13:52)
[2021-12-06] MEDS: CLOTRIMAZOLE 1% CREAM TP SCH ×2 (13:52→21:41)
[2021-12-06] MEDS ORDERED: INSULIN (NOVOLOG) ASPART 100 UNITS/ML 10ML VIAL ONE ×2 (14:08→16:52)
[2021-12-06] MEDS: oxyCODONE HCL 5 MG TABLET PO PRN ×2 (17:22→22:44)
[2021-12-06] MEDS: guaiFENesin/D-METHORPHAN HB 10 ML UNIT-DOSE CUPS PO PRN (21:41)
[2021-12-06] MEDS: MELATONIN 5 MG TABLETS PO SCH (21:41)
[2021-12-06] MEDS: ATORVASTATIN CA 80 MG TABLET (FP) PO SCH (21:41)
[2021-12-07] MEDS: PIPERACILLIN/TAZOB 2.25 GM 2.25 GM in DEXTROSE 5%-WATER - 50 ML IVPB SCH ×3 (03:51→17:34)
[2021-12-07] MEDS ORDERED: DEXTROSE 5%-WATER - 50 ML IVPB ONE ×3 (04:05→17:04)
[2021-12-07] MEDS ORDERED: PIPERACILLIN/TAZOBACTAM 2.25 GM VIAL IVPB ONE ×3 (04:05→17:03)
[2021-12-07] MEDS: INSULIN SLIDING SCALE (NOVOLOG) 1 VIAL SQ SCH ×4 (06:03→22:07)
[2021-12-07] MEDS: VITAMIN B COMP W-C 1 EA TABLET (NEPHRO-VITE) PO SCH (09:00)
[2021-12-07] MEDS: LISINOPRIL 20 MG TABLET PO SCH (09:01)
[2021-12-07] MEDS: NIFEdipine E.R 60 MG TABLET PO SCH (09:01)
[2021-12-07] MEDS: TAMSULOSIN HCL 0.4 MG CAP PO SCH (09:01)
[2021-12-07] MEDS: CLOTRIMAZOLE 1% CREAM TP SCH ×2 (09:02→22:19)
[2021-12-07 09:05] LABS: EOS % 3.1 % (0-4.5); HEMATOCRIT 30.4 % (35.4-49); HEMOGLOBIN 9.7 GM/dL (11.7-16.9); LYMPH % 15.7 % (8-40); MCHC 32.1 g/dl (32.0-35.9); MEAN CELL VOLUME 90.5 fl (80-96); MEAN PLT VOLUME 7.2 fl (7.5-11.1); MONO % 8.6 % (3.8-10.2); NEUT % 71.6 % (42.8-82.8); PLATELET COUNT 352 10^3/uL (134-434); RBC 3.36 M/mm3 (4.00-5.60); RDW 15.1 % (11.9-15.9); WHITE BLOOD COUNT 7.1 K/mm3 (4.0-10.0)
[2021-12-07 09:44] LABS: ALBUMIN 2.6 g/dl (3.4-5.0); BLOOD UREA NITROGEN 38.1 mg/dL (7-18); CALCIUM 8.4 mg/dL (8.5-10.1)
[2021-12-07 09:48] LABS: CREATININE 5.3 mg/dL (0.55-1.3); PHOSPHOROUS 3.7 mg/dL (2.5-4.9)
[2021-12-07 09:50] LABS: BILIRUBIN,TOTAL 0.5 mg/dL (0.2-1); TOT PROT 8.3 g/dl (6.4-8.2)
[2021-12-07] MEDS: TORSEMIDE 100 MG TABLET PO SCH (11:43)
[2021-12-07] MEDS ORDERED: LIDOCAINE HCL 1%, 10 MG/ML (20ML VIAL) ONE (12:11)
[2021-12-07] MEDS ORDERED: HEPARIN NA (PORCINE) 5,000 UNITS/ML 1ML VIAL ONE (12:12)
[2021-12-07] MEDS ORDERED: DEXMEDETOMIDINE HCL 200 MCG/2 ML IVPB ONE (13:59)
[2021-12-07] MEDS ORDERED: MIDAZOLAM HCL 2 MG/2 ML SINGLE DOSE VIAL ONE (14:19)
[2021-12-07] MEDS ORDERED: PROPOFOL 20 ML ONE (14:26)
[2021-12-07] MEDS ORDERED: LIDOCAINE HCL 1% PRESERVATIVE FREE - 30ML VIAL IJ ONE ×2 (14:31)
[2021-12-07] MEDS ORDERED: HEPARIN NA (PORCINE) 5,000 UNITS/ML 1ML VIAL SQ ONE (14:31)
[2021-12-07] MEDS ORDERED: SODIUM CHLORIDE 250 ML IV PRN ×2 (14:41→15:21)
[2021-12-07] MEDS ORDERED: BENZOCAINE/MENTH/CETYLPYRD CL 1 EACH LOZENGE MM PRN (15:21)
[2021-12-07] MEDS ORDERED: ACETAMINOPHEN 325 MG TABLET (FP) PO PRN (15:21)
[2021-12-07] MEDS ORDERED: EPOETIN ALFA-EPBX 3,000 UNIT, EPOETIN ALFA-EPBX 2,000 UNIT IVPUSH ONE (15:21)
[2021-12-07] MEDS ORDERED: guaiFENesin/D-METHORPHAN HB 10 ML UNIT-DOSE CUPS PO PRN (15:21)
[2021-12-07] MEDS ORDERED: MECLIZINE HCL 12.5 MG TABLET PO PRN (15:21)
[2021-12-07 16:31] VITALS: BMI 27.2
[2021-12-07] MEDS: HEPARIN NA (PORCINE) 5,000 UNITS/ML 1ML VIAL SQ SCH (22:16)
[2021-12-07] MEDS: ATORVASTATIN CA 80 MG TABLET (FP) PO SCH (22:16)
[2021-12-07] MEDS: MELATONIN 5 MG TABLETS PO SCH (22:17)
[2021-12-07] MEDS: oxyCODONE HCL 5 MG TABLET PO PRN (22:20)
[2021-12-08] MEDS ORDERED: DEXTROSE 5%-WATER - 50 ML IVPB ONE ×2 (01:59→12:25)
[2021-12-08] MEDS ORDERED: PIPERACILLIN/TAZOBACTAM 2.25 GM VIAL IVPB ONE ×3 (01:59→17:57)
[2021-12-08] MEDS: PIPERACILLIN/TAZOB 2.25 GM 2.25 GM in DEXTROSE 5%-WATER - 50 ML IVPB SCH ×3 (02:43→18:14)
[2021-12-08] MEDS: HEPARIN NA (PORCINE) 5,000 UNITS/ML 1ML VIAL SQ SCH ×3 (05:31→22:05)
[2021-12-08] MEDS: INSULIN SLIDING SCALE (NOVOLOG) 1 VIAL SQ SCH ×4 (07:14→22:05)
[2021-12-08] MEDS ORDERED: EPOETIN ALFA-EPBX 10,000 UNIT/ML VIAL IVPUSH ONE ×2 (08:00→09:00)
[2021-12-08 08:45] LABS: EOS % 2.9 % (0-4.5); HEMATOCRIT 28.8 % (35.4-49); HEMOGLOBIN 9.6 GM/dL (11.7-16.9); LYMPH % 17.7 % (8-40); MCH 29.8 pg (25.7-33.7); MCHC 33.2 g/dl (32.0-35.9); MEAN CELL VOLUME 89.7 fl (80-96); MEAN PLT VOLUME 7.1 fl (7.5-11.1); MONO % 8.6 % (3.8-10.2); NEUT % 69.8 % (42.8-82.8); PLATELET COUNT 344 10^3/uL (134-434); RBC 3.21 M/mm3 (4.00-5.60); RDW 15.2 % (11.9-15.9); WHITE BLOOD COUNT 7.2 K/mm3 (4.0-10.0)
[2021-12-08 09:02] LABS: BLOOD UREA NITROGEN 57.2 mg/dL (7-18); CALCIUM 8.2 mg/dL (8.5-10.1)
[2021-12-08] MEDS: TORSEMIDE 100 MG TABLET PO SCH (12:28)
[2021-12-08] MEDS: NIFEdipine E.R 60 MG TABLET PO SCH (12:29)
[2021-12-08] MEDS: CLOPIDOGREL BISULFATE 75 MG TABLET (FP) PO SCH (12:29)
[2021-12-08] MEDS: LISINOPRIL 20 MG TABLET PO SCH (12:29)
[2021-12-08] MEDS: TAMSULOSIN HCL 0.4 MG CAP PO SCH (12:31)
[2021-12-08] MEDS: VITAMIN B COMP W-C 1 EA TABLET (NEPHRO-VITE) PO SCH (12:31)
[2021-12-08] MEDS: CLOTRIMAZOLE 1% CREAM TP SCH ×2 (12:31→22:05)
[2021-12-08] MEDS: oxyCODONE HCL 5 MG TABLET PO PRN ×2 (12:35→19:18)
[2021-12-08] MEDS: MELATONIN 5 MG TABLETS PO SCH (22:05)
[2021-12-08] MEDS: POLYETHYLENE GLYCOL (HEALTHYLAX) 3350 17 GM PACKET PO SCH (22:05)
[2021-12-08] MEDS: DOCUSATE SODIUM 100 MG CAPSULE (FP) PO SCH (22:05)
[2021-12-08] MEDS: ATORVASTATIN CA 80 MG TABLET (FP) PO SCH (22:05)
[2021-12-09] MEDS: PIPERACILLIN/TAZOB 2.25 GM 2.25 GM in DEXTROSE 5%-WATER - 50 ML IVPB SCH ×3 (01:55→17:36)
[2021-12-09] MEDS: HEPARIN NA (PORCINE) 5,000 UNITS/ML 1ML VIAL SQ SCH ×3 (06:42→22:39)
[2021-12-09] MEDS: INSULIN SLIDING SCALE (NOVOLOG) 1 VIAL SQ SCH ×4 (06:43→22:40)
[2021-12-09] MEDS ORDERED: DEXTROSE 5%-WATER - 50 ML IVPB ONE ×3 (10:20→17:29)
[2021-12-09] MEDS ORDERED: PIPERACILLIN/TAZOBACTAM 2.25 GM VIAL IVPB ONE ×3 (10:20→17:29)
[2021-12-09] MEDS: VITAMIN B COMP W-C 1 EA TABLET (NEPHRO-VITE) PO SCH (10:24)
[2021-12-09] MEDS: NIFEdipine E.R 60 MG TABLET PO SCH (10:24)
[2021-12-09] MEDS: CLOPIDOGREL BISULFATE 75 MG TABLET (FP) PO SCH (10:27)
[2021-12-09] MEDS: LISINOPRIL 20 MG TABLET PO SCH (10:28)
[2021-12-09] MEDS: TORSEMIDE 100 MG TABLET PO SCH (10:37)
[2021-12-09] MEDS: TAMSULOSIN HCL 0.4 MG CAP PO SCH (10:38)
[2021-12-09] MEDS: POLYETHYLENE GLYCOL (HEALTHYLAX) 3350 17 GM PACKET PO SCH ×2 (10:39→22:39)
[2021-12-09] MEDS: CLOTRIMAZOLE 1% CREAM TP SCH ×2 (10:39→22:39)
[2021-12-09] MEDS: oxyCODONE HCL 5 MG TABLET PO PRN (18:40)
[2021-12-09] MEDS: MELATONIN 5 MG TABLETS PO SCH (22:39)
[2021-12-09] MEDS: ATORVASTATIN CA 80 MG TABLET (FP) PO SCH (22:39)
[2021-12-09] MEDS: DOCUSATE SODIUM 100 MG CAPSULE (FP) PO SCH (22:39)
[2021-12-10] MEDS: oxyCODONE HCL 5 MG TABLET PO PRN ×3 (01:15→22:04)
[2021-12-10] MEDS: PIPERACILLIN/TAZOB 2.25 GM 2.25 GM in DEXTROSE 5%-WATER - 50 ML IVPB SCH ×3 (01:52→17:12)
[2021-12-10] MEDS ORDERED: DEXTROSE 5%-WATER - 50 ML IVPB ONE ×3 (02:13→17:06)
[2021-12-10] MEDS ORDERED: PIPERACILLIN/TAZOBACTAM 2.25 GM VIAL IVPB ONE ×3 (02:13→17:05)
[2021-12-10] MEDS: HEPARIN NA (PORCINE) 5,000 UNITS/ML 1ML VIAL SQ SCH ×3 (06:30→21:56)
[2021-12-10] MEDS: INSULIN SLIDING SCALE (NOVOLOG) 1 VIAL SQ SCH ×4 (06:31→21:57)
[2021-12-10 08:18] LABS: EOS % 3.1 % (0-4.5); HEMATOCRIT 29.3 % (35.4-49); HEMOGLOBIN 9.5 GM/dL (11.7-16.9); LYMPH % 17.6 % (8-40); MCH 29.5 pg (25.7-33.7); MCHC 32.3 g/dl (32.0-35.9); MEAN CELL VOLUME 91.4 fl (80-96); MONO % 8.3 % (3.8-10.2); PLATELET COUNT 317 10^3/uL (134-434); RDW 15.6 % (11.9-15.9); WHITE BLOOD COUNT 7.4 K/mm3 (4.0-10.0)
[2021-12-10] MEDS: TAMSULOSIN HCL 0.4 MG CAP PO SCH (08:23)
[2021-12-10 08:34] LABS: CHLORIDE 98 mmol/L (98-107); SODIUM 139 mmol/L (136-145)
[2021-12-10 08:36] LABS: ANION GAP 11 MMOL/L (8-16); BLOOD UREA NITROGEN 70.6 mg/dL (7-18); CALCIUM 8.7 mg/dL (8.5-10.1); CO2 30 mmol/L (21-32); GLUCOSE,RANDOM 136 mg/dL (74-106); MAGNESIUM 2.3 mg/dL (1.8-2.4)
[2021-12-10 08:39] LABS: PHOSPHOROUS 4.7 mg/dL (2.5-4.9)
[2021-12-10 08:41] LABS: CREATININE 7.9 mg/dL (0.55-1.3)
[2021-12-10] MEDS: TORSEMIDE 100 MG TABLET PO SCH (10:15)
[2021-12-10] MEDS: LISINOPRIL 20 MG TABLET PO SCH (10:16)
[2021-12-10] MEDS: POLYETHYLENE GLYCOL (HEALTHYLAX) 3350 17 GM PACKET PO SCH ×2 (10:16→21:56)
[2021-12-10] MEDS: CLOPIDOGREL BISULFATE 75 MG TABLET (FP) PO SCH (10:16)
[2021-12-10] MEDS: NIFEdipine E.R 60 MG TABLET PO SCH (10:17)
[2021-12-10] MEDS: CLOTRIMAZOLE 1% CREAM TP SCH ×2 (10:19→21:56)
[2021-12-10] MEDS: VITAMIN B COMP W-C 1 EA TABLET (NEPHRO-VITE) PO SCH (10:19)
[2021-12-10] MEDS: DOCUSATE SODIUM 100 MG CAPSULE (FP) PO SCH (21:55)
[2021-12-10] MEDS: MELATONIN 5 MG TABLETS PO SCH (21:55)
[2021-12-10] MEDS: ATORVASTATIN CA 80 MG TABLET (FP) PO SCH (21:55)
[2021-12-11] MEDS ORDERED: PIPERACILLIN/TAZOBACTAM 2.25 GM VIAL IVPB ONE (00:52)
[2021-12-11] MEDS ORDERED: DEXTROSE 5%-WATER - 50 ML IVPB ONE (00:52)
[2021-12-11] MEDS: PIPERACILLIN/TAZOB 2.25 GM 2.25 GM in DEXTROSE 5%-WATER - 50 ML IVPB SCH (02:35)
[2021-12-11] MEDS: HEPARIN NA (PORCINE) 5,000 UNITS/ML 1ML VIAL SQ SCH ×2 (05:52→13:57)
[2021-12-11] MEDS: INSULIN SLIDING SCALE (NOVOLOG) 1 VIAL SQ SCH ×3 (06:07→16:48)
[2021-12-11] MEDS ORDERED: SODIUM CHLORIDE 250 ML IV PRN (07:54)
[2021-12-11] MEDS ORDERED: cefTAZidime PENTAHYDRATE 1 GM/50ML PRE-DOCKED (RESTRICTED TO ID) IVPB ONE (07:56)
[2021-12-11] MEDS: TAMSULOSIN HCL 0.4 MG CAP PO SCH (08:10)
[2021-12-11] MEDS ORDERED: CEFTAZIDIME PENTAHYDRATE 1 GM in DEXTROSE 5%-WATER - 50 ML IVPB ONE (10:00)
[2021-12-11] MEDS ORDERED: VANCOMYCIN/WATER FOR INJ (PEG) 1 GM/200 ML BAG IVPB ONE (10:15)
[2021-12-11 11:07] LABS: CHLORIDE 96 mmol/L (98-107); SODIUM 135 mmol/L (136-145)
[2021-12-11 11:11] LABS: CALCIUM 8.8 mg/dL (8.5-10.1)
[2021-12-11 11:12] LABS: ANION GAP 12 MMOL/L (8-16); BLOOD UREA NITROGEN 95.5 mg/dL (7-18); CO2 27 mmol/L (21-32); GLUCOSE,RANDOM 182 mg/dL (74-106)
[2021-12-11 11:19] LABS: CREATININE 9.3 mg/dL (0.55-1.3)
[2021-12-11 11:23] LABS: HEMATOCRIT 28.5 % (35.4-49); MCH 28.6 pg (25.7-33.7); MCHC 31.6 g/dl (32.0-35.9); MEAN CELL VOLUME 90.5 fl (80-96); MEAN PLT VOLUME 7.6 fl (7.5-11.1); PLATELET COUNT 308 10^3/uL (134-434); RBC 3.15 M/mm3 (4.00-5.60); RDW 15.8 % (11.9-15.9)
[2021-12-11] MEDS: NIFEdipine E.R 60 MG TABLET PO SCH (13:41)
[2021-12-11] MEDS: VITAMIN B COMP W-C 1 EA TABLET (NEPHRO-VITE) PO SCH (13:41)
[2021-12-11] MEDS: POLYETHYLENE GLYCOL (HEALTHYLAX) 3350 17 GM PACKET PO SCH (13:42)
[2021-12-11] MEDS: CLOPIDOGREL BISULFATE 75 MG TABLET (FP) PO SCH (13:42)
[2021-12-11] MEDS: LISINOPRIL 20 MG TABLET PO SCH (13:42)
[2021-12-11] MEDS: TORSEMIDE 100 MG TABLET PO SCH (13:42)
[2021-12-11] MEDS: CLOTRIMAZOLE 1% CREAM TP SCH (13:44)
[2021-12-11 17:52] VITALS: PULSE 68; TEMP 98.9
[2021-12-11 17:53] VITALS: BP 137/77
== END 2021-12-11 17:59 | disposition home health service (06) | DRG 299 ==
LOC: JER 12:44 → JERBED 16:36 → J8W 22:35
PROVIDERS: ADMIT Internal Medicine; ATTEND Internal Medicine
PROC: 5A1D80Z Performance of Urinary Filtration, Prolonged Intermittent, 6-18 hours Per Day (ICD-10-PCS; 2021-11-29)
PROC: 5A1D80Z Performance of Urinary Filtration, Prolonged Intermittent, 6-18 hours Per Day (ICD-10-PCS; 2021-12-01)
PROC: 3E10X8Z Irrigation of Skin and Mucous Membranes using Irrigating Substance (ICD-10-PCS; principal; 2021-12-02)
PROC: 5A1D80Z Performance of Urinary Filtration, Prolonged Intermittent, 6-18 hours Per Day (ICD-10-PCS; 2021-12-04)
PROC: 5A1D80Z Performance of Urinary Filtration, Prolonged Intermittent, 6-18 hours Per Day (ICD-10-PCS; 2021-12-06)
PROC: B40DYZZ Plain Radiography of Aorta and Bilateral Lower Extremity Arteries using Other Contrast (ICD-10-PCS; 2021-12-07)
PROC: B40GYZZ Plain Radiography of Left Lower Extremity Arteries using Other Contrast (ICD-10-PCS; 2021-12-07)
PROC: 5A1D80Z Performance of Urinary Filtration, Prolonged Intermittent, 6-18 hours Per Day (ICD-10-PCS; 2021-12-08)
PROC: 5A1D80Z Performance of Urinary Filtration, Prolonged Intermittent, 6-18 hours Per Day (ICD-10-PCS; 2021-12-11)
DX: E11.51 Type 2 diabetes mellitus with diabetic peripheral angiopathy without gangrene (principal); N18.6 End stage renal disease; M86.8X7 Other osteomyelitis, ankle and foot; J90 Pleural effusion, not elsewhere classified; I13.2 Hypertensive heart and chronic kidney disease with heart failure and with stage 5 chronic kidney disease, or end stage renal disease; I50.32 Chronic diastolic (congestive) heart failure; L97.528 Non-pressure chronic ulcer of other part of left foot with other specified severity; L97.518 Non-pressure chronic ulcer of other part of right foot with other specified severity; J98.11 Atelectasis; E11.52 Type 2 diabetes mellitus with diabetic peripheral angiopathy with gangrene; I96 Gangrene, not elsewhere classified; E11.69 Type 2 diabetes mellitus with other specified complication; E11.621 Type 2 diabetes mellitus with foot ulcer; B95.2 Enterococcus as the cause of diseases classified elsewhere; N25.0 Renal osteodystrophy; B95.1 Streptococcus, group B, as the cause of diseases classified elsewhere; K57.90 Diverticulosis of intestine, part unspecified, without perforation or abscess without bleeding; E78.5 Hyperlipidemia, unspecified; K21.00 Gastro-esophageal reflux disease with esophagitis, without bleeding; D63.1 Anemia in chronic kidney disease; I25.10 Atherosclerotic heart disease of native coronary artery without angina pectoris; E11.22 Type 2 diabetes mellitus with diabetic chronic kidney disease; L08.9 Local infection of the skin and subcutaneous tissue, unspecified; E11.628 Type 2 diabetes mellitus with other skin complications; Z99.2 Dependence on renal dialysis; N40.0 Benign prostatic hyperplasia without lower urinary tract symptoms; Z89.412 Acquired absence of left great toe; Z95.5 Presence of coronary angioplasty implant and graft; Z89.411 Acquired absence of right great toe
CPT/HCPCS: 0241U-QW; 10060; 11042; 36415; 71045-TC-FY; 73630-TC-LT; 73718-TC-LT; 76000-TC-FY; 80048; 80053; 82803; 82962; 83735; 84100; 85025; 85027; 85610; 85730; 86038; 86225; 86803; 86850; 86900; 86901; 87040; 87045; 87046; 87070; 87076; 87086; 87186; 87205; 87324; 87340; 87449; 93005; 93010; 93922; 93926-TC; 94010; 94760; 97116-GP; 97162-GP; 99285-25; G0480; J1644; Q5106

== ENCOUNTER 2022-02-21 18:41 | Inpatient (IN) | payer OTHER ==
[2022-02-21 19:00] VITALS: BMI 23.1
[2022-02-21] MEDS ORDERED: ACETAMINOPHEN 1000 MG/100 ML BAG IVPB ONE (19:34)
[2022-02-21] MEDS ORDERED: SODIUM CHLORIDE 250 ML IV STA (19:34)
[2022-02-21] MEDS ORDERED: ACETAMINOPHEN INJECTION 100 ML IVPB ONE (20:20)
[2022-02-21] MEDS ORDERED: CEFTRIAXONE 1 GM/50 ML BAG ONE (20:20)
[2022-02-21 20:57] LABS: INR 1.46 (0.83-1.09); PROTHROMBIN TIME (PATIENT) 16.9 SEC (9.7-13.0)
[2022-02-21 21:00] LABS: ACTIVATED PTT 29.4 SECONDS (25.2-36.5)
[2022-02-21 21:05] LABS: CALCIUM 7.9 mg/dL (8.5-10.1)
[2022-02-21 21:06] LABS: ALBUMIN 2.8 g/dl (3.4-5.0); BLOOD UREA NITROGEN 30.4 mg/dL (7-18)
[2022-02-21 21:07] LABS: BASO % 1.2 % (0-2.0); HEMATOCRIT 34.7 % (35.4-49); HEMOGLOBIN 11.7 GM/dL (11.7-16.9); LYMPH % 5.9 % (8-40); MCH 30.2 pg (25.7-33.7); MCHC 33.6 g/dl (32.0-35.9); MEAN CELL VOLUME 89.8 fl (80-96); MONO % 7.8 % (3.8-10.2); NEUT % 85.1 % (42.8-82.8); PLATELET COUNT 254 10^3/uL (134-434); RBC 3.86 M/mm3 (4.00-5.60); RDW 14.3 % (11.9-15.9); WHITE BLOOD COUNT 10.1 K/mm3 (4.0-10.0)
[2022-02-21 21:11] LABS: BILIRUBIN,TOTAL 0.7 mg/dL (0.2-1); TOT PROT 8.3 g/dl (6.4-8.2)
[2022-02-21 21:17] LABS: VENOUS BASE EXCESS 3.7 mmol/L (-2-2); VENOUS O2 SATURATION 78.5 % (70-80); VENOUS PCO2 38.8 mmHg (38-52); VENOUS PH 7.469 (7.310-7.410)
[2022-02-21 21:18] LABS: LACTIC ACID 2.9 mmol/L (0.4-2.0)
[2022-02-21 21:55] LABS: ERYTHROCYTE SEDIMENTATION RATE 57 mm/hr (0-20)
[2022-02-21 21:59] LABS: PLATELET ESTIMATE NORMAL
[2022-02-21] MEDS ORDERED: VANCOMYCIN 1 GM in D5W (PRE-DOCKED) 1,000 MG/250 ML IVPB ONE (22:59)
[2022-02-21] MEDS ORDERED: VANCOMYCIN/WATER FOR INJ (PEG) 1,000 MG/200 ML BAG IVPB ONE (23:15)
[2022-02-22] MEDS: INSULIN SLIDING SCALE (NOVOLOG) 1 VIAL SQ SCH ×3 (08:15→17:55)
[2022-02-22] MEDS ORDERED: LOSARTAN POTASSIUM 100 MG TABLET PO SCH (10:00)
[2022-02-22] MEDS ORDERED: CLOPIDOGREL BISULFATE 75 MG TABLET (FP) PO SCH (10:00)
[2022-02-22] MEDS ORDERED: LABETALOL HCL 100 MG TABLET (FP) PO SCH (10:00)
[2022-02-22] MEDS: NIFEdipine E.R 60 MG TABLET PO SCH (10:40)
[2022-02-22] MEDS: LOSARTAN POTASSIUM 50 MG TABLET PO SCH (10:40)
[2022-02-22] MEDS ORDERED: LABETALOL HCL 100 MG TABLET (FP) ONE (10:54)
[2022-02-22] MEDS ORDERED: CLOPIDOGREL BISULFATE 75 MG TABLET (FP) ONE (10:54)
[2022-02-22] MEDS: LABETALOL HCL 100 MG TABLET (FP) PO SCH ×2 (10:59→21:49)
[2022-02-22] MEDS: CLOPIDOGREL BISULFATE 75 MG TABLET (FP) PO SCH (10:59)
[2022-02-22] MEDS ORDERED: INSULIN SLIDING SCALE (NOVOLOG) 1 VIAL SQ SCH (11:00)
[2022-02-22] MEDS: TORSEMIDE 100 MG TABLET PO SCH (11:55)
[2022-02-22] MEDS ORDERED: Insulin (LOG) Aspart 100 UNITS/ML VIAL SQ ONE (12:42)
[2022-02-22 13:01] LABS: ALBUMIN 2.6 g/dl (3.4-5.0); CALCIUM 7.6 mg/dL (8.5-10.1); MAGNESIUM 1.9 mg/dL (1.8-2.4)
[2022-02-22 13:02] LABS: BLOOD UREA NITROGEN 43.2 mg/dL (7-18)
[2022-02-22 13:04] LABS: CREATININE 6.8 mg/dL (0.55-1.3)
[2022-02-22 13:06] LABS: BILIRUBIN,TOTAL 0.9 mg/dL (0.2-1); TOT PROT 7.8 g/dl (6.4-8.2)
[2022-02-22 13:10] LABS: HEMATOCRIT 32.4 % (35.4-49); HEMOGLOBIN 10.9 GM/dL (11.7-16.9); MCH 30.3 pg (25.7-33.7); MCHC 33.6 g/dl (32.0-35.9); MEAN CELL VOLUME 90.3 fl (80-96); MEAN PLT VOLUME 7.6 fl (7.5-11.1); PLATELET COUNT 239 10^3/uL (134-434); RBC 3.59 M/mm3 (4.00-5.60); RDW 14.3 % (11.9-15.9); WHITE BLOOD COUNT 5.9 K/mm3 (4.0-10.0)
[2022-02-22 13:21] LABS: LACTIC ACID 2.2 mmol/L (0.4-2.0)
[2022-02-22 13:31] LABS: ANISOCYTOSIS 0; MACROCYTOSIS 0
[2022-02-22] MEDS ORDERED: SODIUM CHLORIDE 250 ML IV PRN (16:13)
[2022-02-22] MEDS: MEROPENEM 1 GM in DEXTROSE 5%-WATER 100 ML IVPB SCH (19:28)
[2022-02-22] MEDS: ATORVASTATIN CA 80 MG TABLET (FP) PO SCH (21:50)
[2022-02-22] MEDS: INSULIN (LEVEMIR) 100 UNITS/ML UNITS SQ SCH (21:51)
[2022-02-23] MEDS: INSULIN SLIDING SCALE (NOVOLOG) 1 VIAL SQ SCH ×3 (06:34→17:08)
[2022-02-23 08:32] LABS: HEMATOCRIT 31.8 % (35.4-49); HEMOGLOBIN 10.2 GM/dL (11.7-16.9); MCH 29.3 pg (25.7-33.7); MEAN CELL VOLUME 91.7 fl (80-96); MEAN PLT VOLUME 8.2 fl (7.5-11.1); PLATELET COUNT 267 10^3/uL (134-434); RBC 3.47 M/mm3 (4.00-5.60); RDW 14.1 % (11.9-15.9)
[2022-02-23 08:34] LABS: WHITE BLOOD COUNT 7.1 K/mm3 (4.0-10.0)
[2022-02-23 08:39] LABS: CHLORIDE 97 mmol/L (98-107); SODIUM 137 mmol/L (136-145)
[2022-02-23 08:41] LABS: ANION GAP 15 MMOL/L (8-16); CO2 25 mmol/L (21-32); GLUCOSE,RANDOM 203 mg/dL (74-106)
[2022-02-23 08:54] LABS: BLOOD UREA NITROGEN 58.9 mg/dL (7-18); CALCIUM 6.9 mg/dL (8.5-10.1); CREATININE 8.4 mg/dL (0.55-1.3)
[2022-02-23 10:11] LABS: ANISOCYTOSIS 0; HELMET CELLS 0; HOWELL-JOLLY BODIES 0; MACROCYTOSIS 0; OVALOCYTE 0; ROULEAU 0; SICKELED CELLS 0; TARGET CELLS 0; TEAR DROP CELLS 0; TOXIC GRANULATION 0
[2022-02-23] MEDS: NIFEdipine E.R 60 MG TABLET PO SCH ×2 (11:34→13:01)
[2022-02-23] MEDS: LABETALOL HCL 100 MG TABLET (FP) PO SCH ×3 (11:34→20:59)
[2022-02-23] MEDS: LOSARTAN POTASSIUM 50 MG TABLET PO SCH (11:34)
[2022-02-23] MEDS: TORSEMIDE 100 MG TABLET PO SCH ×2 (11:34→12:54)
[2022-02-23] MEDS: CLOPIDOGREL BISULFATE 75 MG TABLET (FP) PO SCH (12:53)
[2022-02-23] MEDS: MEROPENEM 1 GM in DEXTROSE 5%-WATER 100 ML IVPB SCH (12:56)
[2022-02-23] MEDS ORDERED: VANCOMYCIN/WATER FOR INJ (PEG) 1,000 MG/200 ML BAG IVPB ONE (14:00)
[2022-02-23] MEDS ORDERED: HEPARIN NA (PORCINE) 5,000 UNITS/ML 1ML VIAL SQ SCH (14:00)
[2022-02-23] MEDS: HEPARIN NA (PORCINE) 5,000 UNITS/ML 1ML VIAL SQ SCH ×2 (16:58→21:31)
[2022-02-23] MEDS ORDERED: ACETAMINOPHEN 1000 MG/100 ML BAG IVPB PRN (18:38)
[2022-02-23] MEDS ORDERED: oxyCODONE HCL 5 MG TABLET PO ONE (20:20)
[2022-02-23] MEDS: ATORVASTATIN CA 80 MG TABLET (FP) PO SCH (20:59)
[2022-02-23] MEDS: INSULIN (LEVEMIR) 100 UNITS/ML UNITS SQ SCH (21:00)
[2022-02-23] MEDS: MELATONIN 5 MG TABLETS PO SCH (21:31)
[2022-02-24] MEDS: INSULIN SLIDING SCALE (NOVOLOG) 1 VIAL SQ SCH ×3 (06:19→16:53)
[2022-02-24] MEDS: HEPARIN NA (PORCINE) 5,000 UNITS/ML 1ML VIAL SQ SCH ×3 (06:20→21:32)
[2022-02-24 08:52] LABS: HEMATOCRIT 32.3 % (35.4-49); HEMOGLOBIN 10.8 GM/dL (11.7-16.9); MCH 30.2 pg (25.7-33.7); MCHC 33.3 g/dl (32.0-35.9); MEAN CELL VOLUME 90.8 fl (80-96); MEAN PLT VOLUME 7.5 fl (7.5-11.1); PLATELET COUNT 276 10^3/uL (134-434); RBC 3.56 M/mm3 (4.00-5.60); RDW 14.4 % (11.9-15.9)
[2022-02-24 09:07] LABS: WHITE BLOOD COUNT 6.6 K/mm3 (4.0-10.0)
[2022-02-24 09:12] LABS: CALCIUM 7.7 mg/dL (8.5-10.1)
[2022-02-24 09:13] LABS: ALBUMIN 2.5 g/dl (3.4-5.0); BLOOD UREA NITROGEN 48.8 mg/dL (7-18)
[2022-02-24 09:16] LABS: CREATININE 6.9 mg/dL (0.55-1.3); PHOSPHOROUS 4.1 mg/dL (2.5-4.9)
[2022-02-24 09:17] LABS: BILIRUBIN,TOTAL 0.9 mg/dL (0.2-1); TOT PROT 7.7 g/dl (6.4-8.2)
[2022-02-24] MEDS: CLOPIDOGREL BISULFATE 75 MG TABLET (FP) PO SCH (10:48)
[2022-02-24] MEDS: TORSEMIDE 100 MG TABLET PO SCH (10:48)
[2022-02-24] MEDS: LOSARTAN POTASSIUM 50 MG TABLET PO SCH (10:48)
[2022-02-24] MEDS: LABETALOL HCL 100 MG TABLET (FP) PO SCH ×2 (10:48→21:32)
[2022-02-24] MEDS: MEROPENEM 1 GM in DEXTROSE 5%-WATER 100 ML IVPB SCH (10:48)
[2022-02-24] MEDS: NIFEdipine E.R 60 MG TABLET PO SCH (10:49)
[2022-02-24] MEDS ORDERED: oxyCODONE HCL 5 MG TABLET PO ONE (19:29)
[2022-02-24] MEDS: INSULIN (LEVEMIR) 100 UNITS/ML UNITS SQ SCH (21:31)
[2022-02-24] MEDS: ATORVASTATIN CA 80 MG TABLET (FP) PO SCH (21:32)
[2022-02-24] MEDS: MELATONIN 5 MG TABLETS PO SCH (21:32)
[2022-02-25] MEDS: HEPARIN NA (PORCINE) 5,000 UNITS/ML 1ML VIAL SQ SCH ×3 (06:20→21:30)
[2022-02-25] MEDS: INSULIN SLIDING SCALE (NOVOLOG) 1 VIAL SQ SCH ×3 (06:25→16:47)
[2022-02-25] MEDS: LOSARTAN POTASSIUM 50 MG TABLET PO SCH (09:28)
[2022-02-25] MEDS: LABETALOL HCL 100 MG TABLET (FP) PO SCH ×2 (09:28→21:06)
[2022-02-25] MEDS: NIFEdipine E.R 60 MG TABLET PO SCH (09:28)
[2022-02-25] MEDS: TORSEMIDE 100 MG TABLET PO SCH (09:28)
[2022-02-25] MEDS: CLOPIDOGREL BISULFATE 75 MG TABLET (FP) PO SCH (09:29)
[2022-02-25] MEDS: COLLAGENASE CLOSTRIDIUM HIST. 30 GRAMS TUBE TP SCH (10:20)
[2022-02-25] MEDS: MEROPENEM 1 GM in DEXTROSE 5%-WATER 100 ML IVPB SCH (11:33)
[2022-02-25] MEDS ORDERED: SODIUM CHLORIDE 250 ML IV PRN (13:25)
[2022-02-25] MEDS ORDERED: ACETAMINOPHEN 1000 MG/100 ML BAG IVPB ONE (14:59)
[2022-02-25] MEDS: oxyCODONE HCL 5 MG TABLET PO PRN ×2 (17:37→23:45)
[2022-02-25] MEDS: ATORVASTATIN CA 80 MG TABLET (FP) PO SCH (21:06)
[2022-02-25] MEDS: MELATONIN 5 MG TABLETS PO SCH (21:06)
[2022-02-25] MEDS: INSULIN (LEVEMIR) 100 UNITS/ML UNITS SQ SCH (21:06)
[2022-02-25] MEDS: SENNOSIDES/DOCUSATE COMBO (SENNA PLUS) TABLET (UD) PO SCH (21:06)
[2022-02-26] MEDS: INSULIN SLIDING SCALE (NOVOLOG) 1 VIAL SQ SCH ×3 (06:18→18:18)
[2022-02-26] MEDS: oxyCODONE HCL 5 MG TABLET PO PRN ×3 (06:20→21:20)
[2022-02-26] MEDS: HEPARIN NA (PORCINE) 5,000 UNITS/ML 1ML VIAL SQ SCH ×3 (06:20→21:20)
[2022-02-26] MEDS ORDERED: CALCITRIOL 0.25 MCG CAPSULE (FP) PO SCH (10:00)
[2022-02-26] MEDS: MEROPENEM 1 GM in DEXTROSE 5%-WATER 100 ML IVPB SCH (10:03)
[2022-02-26] MEDS: CLOPIDOGREL BISULFATE 75 MG TABLET (FP) PO SCH (10:03)
[2022-02-26] MEDS ORDERED: VANCOMYCIN 1 GM PREMIX - 1 GM/200 ML BAG IVPB SCH (10:45)
[2022-02-26] MEDS: COLLAGENASE CLOSTRIDIUM HIST. 30 GRAMS TUBE TP SCH (10:58)
[2022-02-26] MEDS ORDERED: EPOETIN ALFA-EPBX 10,000 UNIT/ML VIAL IVPUSH ONE (15:00)
[2022-02-26] MEDS ORDERED: SODIUM CHLORIDE 250 ML IV PRN (15:00)
[2022-02-26 15:45] LABS: HEMATOCRIT 31.3 % (35.4-49); MCH 29.2 pg (25.7-33.7); MCHC 31.8 g/dl (32.0-35.9); MEAN CELL VOLUME 91.8 fl (80-96); MEAN PLT VOLUME 7.8 fl (7.5-11.1); PLATELET COUNT 326 10^3/uL (134-434); RBC 3.41 M/mm3 (4.00-5.60); RDW 14.4 % (11.9-15.9); WHITE BLOOD COUNT 7.1 K/mm3 (4.0-10.0)
[2022-02-26 16:08] LABS: CHLORIDE 96 mmol/L (98-107); SODIUM 134 mmol/L (136-145)
[2022-02-26 16:12] LABS: CALCIUM 7.4 mg/dL (8.5-10.1)
[2022-02-26] MEDS: LABETALOL HCL 100 MG TABLET (FP) PO SCH ×2 (16:12→21:17)
[2022-02-26 16:13] LABS: ANION GAP 13 MMOL/L (8-16); CO2 25 mmol/L (21-32); GLUCOSE,RANDOM 182 mg/dL (74-106)
[2022-02-26 16:16] LABS: PHOSPHOROUS 5.6 mg/dL (2.5-4.9)
[2022-02-26 16:17] LABS: BLOOD UREA NITROGEN 90.2 mg/dL (7-18)
[2022-02-26] MEDS: LOSARTAN POTASSIUM 50 MG TABLET PO SCH (18:29)
[2022-02-26] MEDS: NIFEdipine E.R 60 MG TABLET PO SCH (18:29)
[2022-02-26] MEDS: TORSEMIDE 100 MG TABLET PO SCH (18:30)
[2022-02-26] MEDS: MELATONIN 5 MG TABLETS PO SCH (21:20)
[2022-02-26] MEDS: INSULIN (LEVEMIR) 100 UNITS/ML UNITS SQ SCH (21:20)
[2022-02-26] MEDS: ATORVASTATIN CA 80 MG TABLET (FP) PO SCH (21:20)
[2022-02-26] MEDS: SENNOSIDES/DOCUSATE COMBO (SENNA PLUS) TABLET (UD) PO SCH (21:21)
[2022-02-27] MEDS: oxyCODONE HCL 5 MG TABLET PO PRN ×3 (04:45→17:55)
[2022-02-27] MEDS: HEPARIN NA (PORCINE) 5,000 UNITS/ML 1ML VIAL SQ SCH ×3 (06:48→21:03)
[2022-02-27] MEDS: INSULIN SLIDING SCALE (NOVOLOG) 1 VIAL SQ SCH ×3 (06:49→17:26)
[2022-02-27 08:30] LABS: BASO % 1.1 % (0-2.0); EOS % 2.7 % (0-4.5); HEMATOCRIT 32.2 % (35.4-49); HEMOGLOBIN 10.4 GM/dL (11.7-16.9); MCH 29.7 pg (25.7-33.7); MCHC 32.4 g/dl (32.0-35.9); MEAN CELL VOLUME 91.7 fl (80-96); MEAN PLT VOLUME 7.6 fl (7.5-11.1); MONO % 9.9 % (3.8-10.2); NEUT % 71.3 % (42.8-82.8); PLATELET COUNT 316 10^3/uL (134-434); RBC 3.51 M/mm3 (4.00-5.60); RDW 14.1 % (11.9-15.9); WHITE BLOOD COUNT 7.6 K/mm3 (4.0-10.0)
[2022-02-27] MEDS ORDERED: SODIUM CHLORIDE 250 ML IV PRN (09:00)
[2022-02-27 09:14] LABS: PHOSPHOROUS 4.8 mg/dL (2.5-4.9)
[2022-02-27 09:15] LABS: TOT PROT 7.5 g/dl (6.4-8.2)
[2022-02-27 09:16] LABS: BILIRUBIN,TOTAL 0.6 mg/dL (0.2-1)
[2022-02-27] MEDS: LOSARTAN POTASSIUM 50 MG TABLET PO SCH (09:18)
[2022-02-27] MEDS: MEROPENEM 1 GM in DEXTROSE 5%-WATER 100 ML IVPB SCH (09:18)
[2022-02-27] MEDS: NIFEdipine E.R 60 MG TABLET PO SCH (09:18)
[2022-02-27] MEDS: LABETALOL HCL 100 MG TABLET (FP) PO SCH ×2 (09:19→21:04)
[2022-02-27] MEDS: TORSEMIDE 100 MG TABLET PO SCH (09:19)
[2022-02-27] MEDS: CLOPIDOGREL BISULFATE 75 MG TABLET (FP) PO SCH (09:19)
[2022-02-27 09:20] LABS: ALBUMIN 2.4 g/dl (3.4-5.0)
[2022-02-27 09:21] LABS: CALCIUM 7.3 mg/dL (8.5-10.1); MAGNESIUM 1.9 mg/dL (1.8-2.4)
[2022-02-27 09:23] LABS: CREATININE 7.1 mg/dL (0.55-1.3)
[2022-02-27 09:24] LABS: BLOOD UREA NITROGEN 49.6 mg/dL (7-18)
[2022-02-27] MEDS: COLLAGENASE CLOSTRIDIUM HIST. 30 GRAMS TUBE TP SCH (10:00)
[2022-02-27] MEDS: INSULIN (LEVEMIR) 100 UNITS/ML UNITS SQ SCH (21:03)
[2022-02-27] MEDS: MELATONIN 5 MG TABLETS PO SCH (21:04)
[2022-02-27] MEDS: SENNOSIDES/DOCUSATE COMBO (SENNA PLUS) TABLET (UD) PO SCH (21:04)
[2022-02-27] MEDS: ATORVASTATIN CA 80 MG TABLET (FP) PO SCH (21:04)
[2022-02-28] MEDS: oxyCODONE HCL 5 MG TABLET PO PRN ×3 (02:03→18:28)
[2022-02-28] MEDS ORDERED: VANCOMYCIN/WATER FOR INJ (PEG) 1 GM/200 ML BAG IVPB SCH (03:30)
[2022-02-28] MEDS: HEPARIN NA (PORCINE) 5,000 UNITS/ML 1ML VIAL SQ SCH ×3 (06:30→21:35)
[2022-02-28] MEDS: INSULIN SLIDING SCALE (NOVOLOG) 1 VIAL SQ SCH ×3 (06:30→17:04)
[2022-02-28 09:32] LABS: EOS % 3.4 % (0-4.5); HEMATOCRIT 29.6 % (35.4-49); HEMOGLOBIN 9.8 GM/dL (11.7-16.9); LYMPH % 20.2 % (8-40); MCH 30.4 pg (25.7-33.7); MEAN CELL VOLUME 91.9 fl (80-96); MEAN PLT VOLUME 7.3 fl (7.5-11.1); MONO % 8.1 % (3.8-10.2); NEUT % 67.3 % (42.8-82.8); PLATELET COUNT 329 10^3/uL (134-434); RBC 3.22 M/mm3 (4.00-5.60); RDW 14.2 % (11.9-15.9); WHITE BLOOD COUNT 8.3 K/mm3 (4.0-10.0)
[2022-02-28 09:46] LABS: CHLORIDE 100 mmol/L (98-107); SODIUM 139 mmol/L (136-145)
[2022-02-28 10:06] LABS: ALBUMIN 2.4 g/dl (3.4-5.0); ANION GAP 13 MMOL/L (8-16); CALCIUM 7.3 mg/dL (8.5-10.1); CO2 26 mmol/L (21-32)
[2022-02-28 10:07] LABS: BLOOD UREA NITROGEN 64.2 mg/dL (7-18); GLUCOSE,RANDOM 135 mg/dL (74-106)
[2022-02-28 10:09] LABS: PHOSPHOROUS 5.9 mg/dL (2.5-4.9); SGOT/AST 58 U/L (15-37)
[2022-02-28 10:10] LABS: SGPT/ALT 53 U/L (13-61)
[2022-02-28 10:11] LABS: BILIRUBIN,TOTAL 0.7 mg/dL (0.2-1); TOT PROT 7.4 g/dl (6.4-8.2)
[2022-02-28 10:12] LABS: ALK PHOS 123 U/L (45-117)
[2022-02-28 10:20] LABS: CREATININE 8.9 mg/dL (0.55-1.3)
[2022-02-28] MEDS: EPOETIN ALFA-EPBX 4,000 UNIT/ML VIAL IVPUSH SCH (10:58)
[2022-02-28] MEDS: LOSARTAN POTASSIUM 50 MG TABLET PO SCH (12:10)
[2022-02-28] MEDS: MEROPENEM 1 GM in DEXTROSE 5%-WATER 100 ML IVPB SCH (12:10)
[2022-02-28] MEDS: SEVELAMER CARBONATE 800 MG TAB (FP) PO SCH ×2 (12:11→17:01)
[2022-02-28] MEDS: NIFEdipine E.R 60 MG TABLET PO SCH (12:11)
[2022-02-28] MEDS: CLOPIDOGREL BISULFATE 75 MG TABLET (FP) PO SCH (12:11)
[2022-02-28] MEDS: LABETALOL HCL 100 MG TABLET (FP) PO SCH ×2 (12:12→21:35)
[2022-02-28] MEDS: COLLAGENASE CLOSTRIDIUM HIST. 30 GRAMS TUBE TP SCH (12:17)
[2022-02-28] MEDS: TORSEMIDE 100 MG TABLET PO SCH (12:20)
[2022-02-28] MEDS: CALCITRIOL 0.25 MCG CAPSULE (FP) PO SCH (12:20)
[2022-02-28] MEDS: MELATONIN 5 MG TABLETS PO SCH (21:36)
[2022-02-28] MEDS: SENNOSIDES/DOCUSATE COMBO (SENNA PLUS) TABLET (UD) PO SCH (21:36)
[2022-02-28] MEDS: ATORVASTATIN CA 80 MG TABLET (FP) PO SCH (21:36)
[2022-02-28] MEDS: INSULIN (LEVEMIR) 100 UNITS/ML UNITS SQ SCH (21:36)
[2022-03-01] MEDS: oxyCODONE HCL 5 MG TABLET PO PRN ×2 (05:56→18:20)
[2022-03-01] MEDS: HEPARIN NA (PORCINE) 5,000 UNITS/ML 1ML VIAL SQ SCH ×3 (05:56→22:35)
[2022-03-01] MEDS: INSULIN SLIDING SCALE (NOVOLOG) 1 VIAL SQ SCH ×3 (06:07→17:12)
[2022-03-01 08:47] LABS: BASO % 0.9 % (0-2.0); EOS % 3.2 % (0-4.5); HEMATOCRIT 31.5 % (35.4-49); HEMOGLOBIN 9.9 GM/dL (11.7-16.9); LYMPH % 16.7 % (8-40); MCH 29.3 pg (25.7-33.7); MCHC 31.6 g/dl (32.0-35.9); MEAN CELL VOLUME 92.8 fl (80-96); MEAN PLT VOLUME 7.1 fl (7.5-11.1); MONO % 10.2 % (3.8-10.2); PLATELET COUNT 334 10^3/uL (134-434); RBC 3.39 M/mm3 (4.00-5.60); RDW 14.3 % (11.9-15.9); WHITE BLOOD COUNT 7.7 K/mm3 (4.0-10.0)
[2022-03-01] MEDS: SEVELAMER CARBONATE 800 MG TAB (FP) PO SCH ×3 (09:05→17:12)
[2022-03-01] MEDS: NYSTATIN POWDER 100,000 UNITS/GM - 15 GM TOPICAL POWDER TP SCH ×2 (09:05→22:35)
[2022-03-01] MEDS: MEROPENEM 1 GM in DEXTROSE 5%-WATER 100 ML IVPB SCH (09:06)
[2022-03-01] MEDS: LOSARTAN POTASSIUM 50 MG TABLET PO SCH (09:06)
[2022-03-01] MEDS: CLOPIDOGREL BISULFATE 75 MG TABLET (FP) PO SCH (09:06)
[2022-03-01] MEDS: TORSEMIDE 100 MG TABLET PO SCH (09:06)
[2022-03-01] MEDS: LABETALOL HCL 100 MG TABLET (FP) PO SCH ×2 (09:07→22:34)
[2022-03-01] MEDS: NIFEdipine E.R 60 MG TABLET PO SCH (09:07)
[2022-03-01] MEDS: COLLAGENASE CLOSTRIDIUM HIST. 30 GRAMS TUBE TP SCH (09:07)
[2022-03-01 09:20] LABS: ALBUMIN 2.4 g/dl (3.4-5.0); CALCIUM 7.8 mg/dL (8.5-10.1)
[2022-03-01 09:21] LABS: BLOOD UREA NITROGEN 46.1 mg/dL (7-18); MAGNESIUM 1.9 mg/dL (1.8-2.4)
[2022-03-01 09:23] LABS: CREATININE 6.4 mg/dL (0.55-1.3); PHOSPHOROUS 4.6 mg/dL (2.5-4.9)
[2022-03-01 09:25] LABS: TOT PROT 7.3 g/dl (6.4-8.2)
[2022-03-01] MEDS ORDERED: INSULIN (NOVOLOG) ASPART 100 UNITS/ML 10ML VIAL ONE (11:06)
[2022-03-01] MEDS ORDERED: SODIUM CHLORIDE 250 ML IV PRN (11:27)
[2022-03-01] MEDS: CLOTRIMAZOLE 1% CREAM TP SCH ×2 (14:06→22:35)
[2022-03-01] MEDS: hydrOXYzine PAMOATE 25 MG CAPSULE (FP) PO PRN (14:27)
[2022-03-01] MEDS: MELATONIN 5 MG TABLETS PO SCH (22:34)
[2022-03-01] MEDS: ATORVASTATIN CA 80 MG TABLET (FP) PO SCH (22:34)
[2022-03-01] MEDS: INSULIN (LEVEMIR) 100 UNITS/ML UNITS SQ SCH (22:35)
[2022-03-01] MEDS: SENNOSIDES/DOCUSATE COMBO (SENNA PLUS) TABLET (UD) PO SCH (22:43)
[2022-03-02] MEDS: oxyCODONE HCL 5 MG TABLET PO PRN ×3 (05:32→22:16)
[2022-03-02] MEDS: HEPARIN NA (PORCINE) 5,000 UNITS/ML 1ML VIAL SQ SCH ×3 (06:38→22:17)
[2022-03-02] MEDS: INSULIN SLIDING SCALE (NOVOLOG) 1 VIAL SQ SCH ×3 (06:39→17:27)
[2022-03-02] MEDS: LOSARTAN POTASSIUM 50 MG TABLET PO SCH (09:39)
[2022-03-02] MEDS: CLOPIDOGREL BISULFATE 75 MG TABLET (FP) PO SCH (09:39)
[2022-03-02] MEDS: NIFEdipine E.R 60 MG TABLET PO SCH (09:41)
[2022-03-02] MEDS: LABETALOL HCL 100 MG TABLET (FP) PO SCH ×2 (09:41→22:17)
[2022-03-02] MEDS: TORSEMIDE 100 MG TABLET PO SCH (09:41)
[2022-03-02] MEDS: CALCITRIOL 0.25 MCG CAPSULE (FP) PO SCH (09:42)
[2022-03-02] MEDS: hydrOXYzine PAMOATE 25 MG CAPSULE (FP) PO PRN (09:42)
[2022-03-02] MEDS: MEROPENEM 1 GM in DEXTROSE 5%-WATER 100 ML IVPB SCH (09:42)
[2022-03-02] MEDS: SEVELAMER CARBONATE 800 MG TAB (FP) PO SCH ×3 (10:16→17:29)
[2022-03-02] MEDS: VANCOMYCIN/WATER FOR INJ (PEG) 750 MG/150 ML BAG IVPB SCH (10:16)
[2022-03-02 10:19] LABS: HEMOGLOBIN 9.2 GM/dL (11.7-16.9); MCH 29.3 pg (25.7-33.7); MCHC 31.8 g/dl (32.0-35.9); MEAN CELL VOLUME 92.2 fl (80-96); MEAN PLT VOLUME 7.1 fl (7.5-11.1); PLATELET COUNT 335 10^3/uL (134-434); RBC 3.15 M/mm3 (4.00-5.60); RDW 14.3 % (11.9-15.9)
[2022-03-02 10:42] LABS: CHLORIDE 100 mmol/L (98-107); SODIUM 138 mmol/L (136-145)
[2022-03-02 10:43] LABS: CALCIUM 7.3 mg/dL (8.5-10.1)
[2022-03-02 10:44] LABS: ANION GAP 10 MMOL/L (8-16); CO2 27 mmol/L (21-32); GLUCOSE,RANDOM 151 mg/dL (74-106)
[2022-03-02] MEDS: EPOETIN ALFA-EPBX 4,000 UNIT/ML VIAL IVPUSH SCH (10:44)
[2022-03-02 10:47] LABS: PHOSPHOROUS 5.8 mg/dL (2.5-4.9)
[2022-03-02 10:59] LABS: BLOOD UREA NITROGEN 72.2 mg/dL (7-18); CREATININE 8.3 mg/dL (0.55-1.3)
[2022-03-02] MEDS: COLLAGENASE CLOSTRIDIUM HIST. 30 GRAMS TUBE TP SCH (14:44)
[2022-03-02] MEDS: CLOTRIMAZOLE 1% CREAM TP SCH ×3 (15:28→22:17)
[2022-03-02] MEDS: NYSTATIN POWDER 100,000 UNITS/GM - 15 GM TOPICAL POWDER TP SCH ×2 (17:56→22:17)
[2022-03-02] MEDS: SENNOSIDES/DOCUSATE COMBO (SENNA PLUS) TABLET (UD) PO SCH (22:16)
[2022-03-02] MEDS: MELATONIN 5 MG TABLETS PO SCH (22:16)
[2022-03-02] MEDS: INSULIN (LEVEMIR) 100 UNITS/ML UNITS SQ SCH (22:17)
[2022-03-02] MEDS: ATORVASTATIN CA 80 MG TABLET (FP) PO SCH (22:17)
[2022-03-03] MEDS: HEPARIN NA (PORCINE) 5,000 UNITS/ML 1ML VIAL SQ SCH ×3 (06:40→22:48)
[2022-03-03] MEDS: INSULIN SLIDING SCALE (NOVOLOG) 1 VIAL SQ SCH ×3 (06:41→18:47)
[2022-03-03] MEDS: CLOPIDOGREL BISULFATE 75 MG TABLET (FP) PO SCH (09:55)
[2022-03-03] MEDS: NIFEdipine E.R 60 MG TABLET PO SCH (09:55)
[2022-03-03] MEDS: SEVELAMER CARBONATE 800 MG TAB (FP) PO SCH ×3 (09:55→17:32)
[2022-03-03] MEDS: LOSARTAN POTASSIUM 50 MG TABLET PO SCH (09:55)
[2022-03-03] MEDS: LABETALOL HCL 100 MG TABLET (FP) PO SCH ×2 (09:55→22:48)
[2022-03-03] MEDS: TORSEMIDE 100 MG TABLET PO SCH (09:56)
[2022-03-03] MEDS: MEROPENEM 1 GM in DEXTROSE 5%-WATER 100 ML IVPB SCH (09:56)
[2022-03-03] MEDS: hydrOXYzine PAMOATE 25 MG CAPSULE (FP) PO PRN (09:57)
[2022-03-03] MEDS: CLOTRIMAZOLE 1% CREAM TP SCH ×2 (09:58→22:49)
[2022-03-03] MEDS: NYSTATIN POWDER 100,000 UNITS/GM - 15 GM TOPICAL POWDER TP SCH ×2 (09:58→22:49)
[2022-03-03] MEDS: oxyCODONE HCL 5 MG TABLET PO PRN ×2 (11:44→20:47)
[2022-03-03 12:43] LABS: HEMOGLOBIN 10.3 GM/dL (11.7-16.9); MCH 29.8 pg (25.7-33.7); MCHC 32.2 g/dl (32.0-35.9); MEAN CELL VOLUME 92.7 fl (80-96); MEAN PLT VOLUME 7.3 fl (7.5-11.1); PLATELET COUNT 378 10^3/uL (134-434); RBC 3.45 M/mm3 (4.00-5.60); RDW 14.8 % (11.9-15.9); WHITE BLOOD COUNT 7.7 K/mm3 (4.0-10.0)
[2022-03-03 13:01] LABS: ALBUMIN 2.7 g/dl (3.4-5.0); BLOOD UREA NITROGEN 60.3 mg/dL (7-18)
[2022-03-03 13:07] LABS: BILIRUBIN,TOTAL 0.8 mg/dL (0.2-1); CREATININE 7.3 mg/dL (0.55-1.3); TOT PROT 8.4 g/dl (6.4-8.2)
[2022-03-03] MEDS: COLLAGENASE CLOSTRIDIUM HIST. 30 GRAMS TUBE TP SCH (15:53)
[2022-03-03] MEDS: INSULIN (LEVEMIR) 100 UNITS/ML UNITS SQ SCH (22:48)
[2022-03-03] MEDS: MELATONIN 5 MG TABLETS PO SCH (22:48)
[2022-03-03] MEDS: ATORVASTATIN CA 80 MG TABLET (FP) PO SCH (22:48)
[2022-03-03] MEDS: SENNOSIDES/DOCUSATE COMBO (SENNA PLUS) TABLET (UD) PO SCH (22:48)
[2022-03-04] MEDS: HEPARIN NA (PORCINE) 5,000 UNITS/ML 1ML VIAL SQ SCH ×3 (06:04→22:27)
[2022-03-04] MEDS: INSULIN SLIDING SCALE (NOVOLOG) 1 VIAL SQ SCH ×3 (06:04→17:19)
[2022-03-04 09:24] LABS: HEMATOCRIT 31.2 % (35.4-49); HEMOGLOBIN 10.2 GM/dL (11.7-16.9); MCH 30.4 pg (25.7-33.7); MCHC 32.8 g/dl (32.0-35.9); MEAN CELL VOLUME 92.7 fl (80-96); MEAN PLT VOLUME 7.1 fl (7.5-11.1); PLATELET COUNT 354 10^3/uL (134-434); RBC 3.37 M/mm3 (4.00-5.60); RDW 14.2 % (11.9-15.9); WHITE BLOOD COUNT 8.3 K/mm3 (4.0-10.0)
[2022-03-04 09:47] LABS: CHLORIDE 98 mmol/L (98-107); SODIUM 137 mmol/L (136-145)
[2022-03-04 09:51] LABS: BLOOD UREA NITROGEN 82.8 mg/dL (7-18); CALCIUM 7.7 mg/dL (8.5-10.1); CO2 27 mmol/L (21-32); GLUCOSE,RANDOM 74 mg/dL (74-106)
[2022-03-04 09:57] LABS: ANION GAP 11 MMOL/L (8-16)
[2022-03-04] MEDS ORDERED: CALCIUM GLUCONATE 10% - 1,000 MG/10 ML VIAL IVPUSH ONE (10:33)
[2022-03-04] MEDS ORDERED: SODIUM ZIRCONIUM CYCLOSILICATE (LOKELMA) 5 GM PACKET PO SCH (10:45)
[2022-03-04] MEDS ORDERED: SODIUM CHLORIDE 250 ML IV PRN ×2 (10:55→16:45)
[2022-03-04] MEDS ORDERED: CALCIUM GLUCONATE 10% - 1,000 MG/10 ML VIAL IVPB ONE (11:29)
[2022-03-04] MEDS: oxyCODONE HCL 5 MG TABLET PO PRN ×2 (12:55→22:28)
[2022-03-04] MEDS: LOSARTAN POTASSIUM 50 MG TABLET PO SCH (12:59)
[2022-03-04] MEDS: SEVELAMER CARBONATE 800 MG TAB (FP) PO SCH ×3 (12:59→17:48)
[2022-03-04] MEDS: LABETALOL HCL 100 MG TABLET (FP) PO SCH ×2 (12:59→22:27)
[2022-03-04] MEDS: NIFEdipine E.R 60 MG TABLET PO SCH (12:59)
[2022-03-04] MEDS: CLOPIDOGREL BISULFATE 75 MG TABLET (FP) PO SCH (13:00)
[2022-03-04] MEDS: NYSTATIN POWDER 100,000 UNITS/GM - 15 GM TOPICAL POWDER TP SCH (13:00)
[2022-03-04] MEDS: CLOTRIMAZOLE 1% CREAM TP SCH (13:01)
[2022-03-04] MEDS: MEROPENEM 1 GM in DEXTROSE 5%-WATER 100 ML IVPB SCH (13:01)
[2022-03-04] MEDS: COLLAGENASE CLOSTRIDIUM HIST. 30 GRAMS TUBE TP SCH (13:02)
[2022-03-04] MEDS: TORSEMIDE 100 MG TABLET PO SCH (17:19)
[2022-03-04] MEDS: ATORVASTATIN CA 80 MG TABLET (FP) PO SCH (22:27)
[2022-03-04] MEDS: INSULIN (LEVEMIR) 100 UNITS/ML UNITS SQ SCH (22:27)
[2022-03-04] MEDS: MELATONIN 5 MG TABLETS PO SCH (22:28)
[2022-03-04] MEDS: SENNOSIDES/DOCUSATE COMBO (SENNA PLUS) TABLET (UD) PO SCH (22:32)
[2022-03-05] MEDS: CLOTRIMAZOLE 1% CREAM TP SCH ×3 (00:42→21:59)
[2022-03-05] MEDS: NYSTATIN POWDER 100,000 UNITS/GM - 15 GM TOPICAL POWDER TP SCH ×3 (00:43→21:59)
[2022-03-05] MEDS: INSULIN SLIDING SCALE (NOVOLOG) 1 VIAL SQ SCH ×3 (06:21→16:49)
[2022-03-05] MEDS: HEPARIN NA (PORCINE) 5,000 UNITS/ML 1ML VIAL SQ SCH ×3 (06:22→21:50)
[2022-03-05] MEDS: SEVELAMER CARBONATE 800 MG TAB (FP) PO SCH ×3 (08:10→17:45)
[2022-03-05] MEDS: oxyCODONE HCL 5 MG TABLET PO PRN ×2 (08:12→17:50)
[2022-03-05 09:33] LABS: HEMATOCRIT 27.9 % (35.4-49); HEMOGLOBIN 9.2 GM/dL (11.7-16.9); MCH 30.3 pg (25.7-33.7); MCHC 32.9 g/dl (32.0-35.9); MEAN CELL VOLUME 92.2 fl (80-96); MEAN PLT VOLUME 6.9 fl (7.5-11.1); PLATELET COUNT 333 10^3/uL (134-434); RBC 3.03 M/mm3 (4.00-5.60); RDW 14.3 % (11.9-15.9); WHITE BLOOD COUNT 10.9 K/mm3 (4.0-10.0)
[2022-03-05 09:54] LABS: ALBUMIN 2.4 g/dl (3.4-5.0); BLOOD UREA NITROGEN 63.9 mg/dL (7-18); CALCIUM 7.4 mg/dL (8.5-10.1); MAGNESIUM 2.2 mg/dL (1.8-2.4)
[2022-03-05 09:59] LABS: BILIRUBIN,TOTAL 0.8 mg/dL (0.2-1); TOT PROT 7.3 g/dl (6.4-8.2)
[2022-03-05 10:04] LABS: CREATININE 7.4 mg/dL (0.55-1.3)
[2022-03-05] MEDS: VANCOMYCIN/WATER FOR INJ (PEG) 750 MG/150 ML BAG IVPB SCH (10:49)
[2022-03-05] MEDS: MEROPENEM 1 GM in DEXTROSE 5%-WATER 100 ML IVPB SCH (12:46)
[2022-03-05] MEDS: COLLAGENASE CLOSTRIDIUM HIST. 30 GRAMS TUBE TP SCH (12:50)
[2022-03-05] MEDS: CLOPIDOGREL BISULFATE 75 MG TABLET (FP) PO SCH (12:51)
[2022-03-05] MEDS: NIFEdipine E.R 60 MG TABLET PO SCH (13:04)
[2022-03-05] MEDS: TORSEMIDE 100 MG TABLET PO SCH (13:04)
[2022-03-05] MEDS: LABETALOL HCL 100 MG TABLET (FP) PO SCH ×2 (13:04→21:51)
[2022-03-05] MEDS: LOSARTAN POTASSIUM 50 MG TABLET PO SCH (13:04)
[2022-03-05] MEDS: CALCITRIOL 0.25 MCG CAPSULE (FP) PO SCH (13:04)
[2022-03-05] MEDS ORDERED: hydrOXYzine HCL 10 MG/5 ML LIQUID BULK BOTTLE PO PRN (14:48)
[2022-03-05] MEDS: MELATONIN 5 MG TABLETS PO SCH (21:51)
[2022-03-05] MEDS: ATORVASTATIN CA 80 MG TABLET (FP) PO SCH (21:51)
[2022-03-05] MEDS: INSULIN (LEVEMIR) 100 UNITS/ML UNITS SQ SCH (21:52)
[2022-03-05] MEDS: SENNOSIDES/DOCUSATE COMBO (SENNA PLUS) TABLET (UD) PO SCH (22:02)
[2022-03-06] MEDS: INSULIN SLIDING SCALE (NOVOLOG) 1 VIAL SQ SCH ×3 (06:09→16:46)
[2022-03-06] MEDS: HEPARIN NA (PORCINE) 5,000 UNITS/ML 1ML VIAL SQ SCH ×3 (06:11→21:46)
[2022-03-06] MEDS: SEVELAMER CARBONATE 800 MG TAB (FP) PO SCH ×3 (08:52→16:56)
[2022-03-06] MEDS: NIFEdipine E.R 60 MG TABLET PO SCH (09:04)
[2022-03-06] MEDS: TORSEMIDE 100 MG TABLET PO SCH (09:04)
[2022-03-06] MEDS: LOSARTAN POTASSIUM 50 MG TABLET PO SCH (09:04)
[2022-03-06] MEDS: CLOPIDOGREL BISULFATE 75 MG TABLET (FP) PO SCH (09:04)
[2022-03-06] MEDS: LABETALOL HCL 100 MG TABLET (FP) PO SCH ×2 (09:04→21:46)
[2022-03-06] MEDS: CLOTRIMAZOLE 1% CREAM TP SCH ×2 (09:05→22:00)
[2022-03-06] MEDS: NYSTATIN POWDER 100,000 UNITS/GM - 15 GM TOPICAL POWDER TP SCH ×2 (09:05→22:00)
[2022-03-06] MEDS: COLLAGENASE CLOSTRIDIUM HIST. 30 GRAMS TUBE TP SCH (09:05)
[2022-03-06] MEDS: MEROPENEM 1 GM in DEXTROSE 5%-WATER 100 ML IVPB SCH (09:32)
[2022-03-06 12:10] LABS: HEMATOCRIT 30.3 % (35.4-49); MCH 30.6 pg (25.7-33.7); MEAN CELL VOLUME 92.7 fl (80-96); MEAN PLT VOLUME 7.3 fl (7.5-11.1); PLATELET COUNT 358 10^3/uL (134-434); RBC 3.27 M/mm3 (4.00-5.60); RDW 14.6 % (11.9-15.9); WHITE BLOOD COUNT 7.2 K/mm3 (4.0-10.0)
[2022-03-06] MEDS: oxyCODONE HCL 5 MG TABLET PO PRN ×2 (12:14→21:47)
[2022-03-06 12:50] LABS: CALCIUM 8.1 mg/dL (8.5-10.1)
[2022-03-06 12:51] LABS: MAGNESIUM 2.3 mg/dL (1.8-2.4)
[2022-03-06 12:52] LABS: ALBUMIN 2.6 g/dl (3.4-5.0); BLOOD UREA NITROGEN 56.7 mg/dL (7-18)
[2022-03-06 12:56] LABS: BILIRUBIN,TOTAL 0.8 mg/dL (0.2-1)
[2022-03-06] MEDS: MELATONIN 5 MG TABLETS PO SCH (21:45)
[2022-03-06] MEDS: ATORVASTATIN CA 80 MG TABLET (FP) PO SCH (21:46)
[2022-03-06] MEDS: INSULIN (LEVEMIR) 100 UNITS/ML UNITS SQ SCH (21:57)
[2022-03-07] MEDS: SENNOSIDES/DOCUSATE COMBO (SENNA PLUS) TABLET (UD) PO SCH ×2 (00:45→21:16)
[2022-03-07] MEDS: INSULIN SLIDING SCALE (NOVOLOG) 1 VIAL SQ SCH ×3 (06:51→17:43)
[2022-03-07] MEDS: SEVELAMER CARBONATE 800 MG TAB (FP) PO SCH ×3 (08:30→16:52)
[2022-03-07] MEDS ORDERED: SODIUM CHLORIDE 250 ML IV PRN (09:25)
[2022-03-07 10:07] LABS: HEMATOCRIT 27.5 % (35.4-49); HEMOGLOBIN 9.4 GM/dL (11.7-16.9); MCH 31.1 pg (25.7-33.7); MCHC 34.2 g/dl (32.0-35.9); MEAN CELL VOLUME 91.1 fl (80-96); MEAN PLT VOLUME 7.2 fl (7.5-11.1); PLATELET COUNT 343 10^3/uL (134-434); RBC 3.02 M/mm3 (4.00-5.60); RDW 13.9 % (11.9-15.9)
[2022-03-07 10:25] LABS: CHLORIDE 96 mmol/L (98-107); SODIUM 134 mmol/L (136-145)
[2022-03-07 10:46] LABS: ALBUMIN 2.4 g/dl (3.4-5.0); CALCIUM 7.8 mg/dL (8.5-10.1)
[2022-03-07 10:47] LABS: ANION GAP 12 MMOL/L (8-16); CO2 27 mmol/L (21-32); GLUCOSE,RANDOM 117 mg/dL (74-106); MAGNESIUM 2.2 mg/dL (1.8-2.4)
[2022-03-07 10:50] LABS: PHOSPHOROUS 6.8 mg/dL (2.5-4.9); SGOT/AST 30 U/L (15-37); SGPT/ALT 31 U/L (13-61)
[2022-03-07 10:51] LABS: BILIRUBIN,TOTAL 0.9 mg/dL (0.2-1); TOT PROT 7.5 g/dl (6.4-8.2)
[2022-03-07 10:52] LABS: ALK PHOS 127 U/L (45-117)
[2022-03-07] MEDS: EPOETIN ALFA-EPBX 4,000 UNIT/ML VIAL IVPUSH SCH (10:58)
[2022-03-07 11:10] LABS: BLOOD UREA NITROGEN 82.8 mg/dL (7-18); CREATININE 8.9 mg/dL (0.55-1.3)
[2022-03-07] MEDS: VANCOMYCIN/WATER FOR INJ (PEG) 750 MG/150 ML BAG IVPB SCH (11:21)
[2022-03-07] MEDS: LOSARTAN POTASSIUM 50 MG TABLET PO SCH (12:44)
[2022-03-07] MEDS: NIFEdipine E.R 60 MG TABLET PO SCH (12:45)
[2022-03-07] MEDS: TORSEMIDE 100 MG TABLET PO SCH (12:45)
[2022-03-07] MEDS: CLOPIDOGREL BISULFATE 75 MG TABLET (FP) PO SCH (12:45)
[2022-03-07] MEDS: LABETALOL HCL 100 MG TABLET (FP) PO SCH ×2 (12:45→21:15)
[2022-03-07] MEDS: NYSTATIN POWDER 100,000 UNITS/GM - 15 GM TOPICAL POWDER TP SCH ×2 (12:46→22:58)
[2022-03-07] MEDS: COLLAGENASE CLOSTRIDIUM HIST. 30 GRAMS TUBE TP SCH (12:47)
[2022-03-07] MEDS: CALCITRIOL 0.25 MCG CAPSULE (FP) PO SCH (12:47)
[2022-03-07] MEDS: CLOTRIMAZOLE 1% CREAM TP SCH ×2 (12:47→22:58)
[2022-03-07] MEDS: oxyCODONE HCL 5 MG TABLET PO PRN (16:51)
[2022-03-07] MEDS: ATORVASTATIN CA 80 MG TABLET (FP) PO SCH (21:15)
[2022-03-07] MEDS: MELATONIN 5 MG TABLETS PO SCH (21:19)
[2022-03-07] MEDS: INSULIN (LEVEMIR) 100 UNITS/ML UNITS SQ SCH (21:19)
[2022-03-08] MEDS: INSULIN SLIDING SCALE (NOVOLOG) 1 VIAL SQ SCH ×3 (06:04→18:10)
[2022-03-08] MEDS: EPOETIN ALFA-EPBX 4,000 UNIT/ML VIAL IVPUSH SCH (07:45)
[2022-03-08] MEDS ORDERED: SODIUM CHLORIDE 250 ML IV PRN (09:38)
[2022-03-08] MEDS: LABETALOL HCL 100 MG TABLET (FP) PO SCH ×2 (10:37→21:46)
[2022-03-08] MEDS: NIFEdipine E.R 60 MG TABLET PO SCH (10:38)
[2022-03-08] MEDS: LOSARTAN POTASSIUM 50 MG TABLET PO SCH (10:38)
[2022-03-08] MEDS: CLOPIDOGREL BISULFATE 75 MG TABLET (FP) PO SCH (10:38)
[2022-03-08] MEDS: SEVELAMER CARBONATE 800 MG TAB (FP) PO SCH ×3 (10:38→18:07)
[2022-03-08] MEDS: COLLAGENASE CLOSTRIDIUM HIST. 30 GRAMS TUBE TP SCH (10:39)
[2022-03-08] MEDS: TORSEMIDE 100 MG TABLET PO SCH (10:40)
[2022-03-08] MEDS: oxyCODONE HCL 5 MG TABLET PO PRN (10:50)
[2022-03-08 12:12] LABS: BASO % 1.1 % (0-2.0); EOS % 3.3 % (0-4.5); HEMATOCRIT 30.6 % (35.4-49); HEMOGLOBIN 9.8 GM/dL (11.7-16.9); LYMPH % 20.6 % (8-40); MCH 29.3 pg (25.7-33.7); MCHC 31.8 g/dl (32.0-35.9); MEAN CELL VOLUME 92.1 fl (80-96); MEAN PLT VOLUME 7.3 fl (7.5-11.1); MONO % 10.2 % (3.8-10.2); NEUT % 64.8 % (42.8-82.8); PLATELET COUNT 356 10^3/uL (134-434); RBC 3.33 M/mm3 (4.00-5.60); RDW 13.8 % (11.9-15.9); WHITE BLOOD COUNT 5.5 K/mm3 (4.0-10.0)
[2022-03-08 12:41] LABS: ALBUMIN 2.5 g/dl (3.4-5.0)
[2022-03-08 12:42] LABS: BLOOD UREA NITROGEN 65.7 mg/dL (7-18)
[2022-03-08 12:45] LABS: CREATININE 7.3 mg/dL (0.55-1.3)
[2022-03-08 12:46] LABS: BILIRUBIN,TOTAL 0.7 mg/dL (0.2-1); TOT PROT 7.9 g/dl (6.4-8.2)
[2022-03-08] MEDS: CLOTRIMAZOLE 1% CREAM TP SCH ×3 (13:14→21:52)
[2022-03-08] MEDS: NYSTATIN POWDER 100,000 UNITS/GM - 15 GM TOPICAL POWDER TP SCH ×3 (13:14→21:52)
[2022-03-08] MEDS: ATORVASTATIN CA 80 MG TABLET (FP) PO SCH (21:46)
[2022-03-08] MEDS: MELATONIN 5 MG TABLETS PO SCH (21:46)
[2022-03-08] MEDS: INSULIN (LEVEMIR) 100 UNITS/ML UNITS SQ SCH (21:46)
[2022-03-08] MEDS: SENNOSIDES/DOCUSATE COMBO (SENNA PLUS) TABLET (UD) PO SCH (21:47)
[2022-03-09] MEDS: oxyCODONE HCL 5 MG TABLET PO PRN ×2 (03:14→09:49)
[2022-03-09] MEDS: INSULIN SLIDING SCALE (NOVOLOG) 1 VIAL SQ SCH ×3 (07:14→17:17)
[2022-03-09] MEDS: SEVELAMER CARBONATE 800 MG TAB (FP) PO SCH ×3 (08:36→18:03)
[2022-03-09 09:24] LABS: HEMATOCRIT 26.7 % (35.4-49); HEMOGLOBIN 8.9 GM/dL (11.7-16.9); MCH 30.2 pg (25.7-33.7); MCHC 33.2 g/dl (32.0-35.9); MEAN CELL VOLUME 90.9 fl (80-96); PLATELET COUNT 322 10^3/uL (134-434); RBC 2.94 M/mm3 (4.00-5.60); RDW 13.5 % (11.9-15.9); WHITE BLOOD COUNT 4.8 K/mm3 (4.0-10.0)
[2022-03-09 09:45] LABS: CHLORIDE 98 mmol/L (98-107); SODIUM 137 mmol/L (136-145)
[2022-03-09 09:47] LABS: ANION GAP 10 MMOL/L (8-16); CO2 29 mmol/L (21-32); GLUCOSE,RANDOM 165 mg/dL (74-106)
[2022-03-09 09:48] LABS: BLOOD UREA NITROGEN 78.5 mg/dL (7-18)
[2022-03-09 09:50] LABS: PHOSPHOROUS 5.5 mg/dL (2.5-4.9)
[2022-03-09 09:51] LABS: CALCIUM 7.9 mg/dL (8.5-10.1)
[2022-03-09 09:53] LABS: CREATININE 7.8 mg/dL (0.55-1.3)
[2022-03-09] MEDS: EPOETIN ALFA-EPBX 4,000 UNIT/ML VIAL IVPUSH SCH (11:23)
[2022-03-09] MEDS: TORSEMIDE 100 MG TABLET PO SCH (13:14)
[2022-03-09] MEDS: CALCITRIOL 0.25 MCG CAPSULE (FP) PO SCH (13:14)
[2022-03-09] MEDS: LABETALOL HCL 100 MG TABLET (FP) PO SCH ×2 (13:15→22:15)
[2022-03-09] MEDS: NIFEdipine E.R 60 MG TABLET PO SCH (13:15)
[2022-03-09] MEDS: CLOTRIMAZOLE 1% CREAM TP SCH ×2 (13:16→22:15)
[2022-03-09] MEDS: CLOPIDOGREL BISULFATE 75 MG TABLET (FP) PO SCH (13:16)
[2022-03-09] MEDS: LOSARTAN POTASSIUM 50 MG TABLET PO SCH (13:16)
[2022-03-09] MEDS: NYSTATIN POWDER 100,000 UNITS/GM - 15 GM TOPICAL POWDER TP SCH ×2 (13:23→22:16)
[2022-03-09] MEDS: COLLAGENASE CLOSTRIDIUM HIST. 30 GRAMS TUBE TP SCH (16:22)
[2022-03-09] MEDS ORDERED: oxyCODONE HCL 5 MG TABLET PO ONE (21:52)
[2022-03-09] MEDS: MELATONIN 5 MG TABLETS PO SCH (22:08)
[2022-03-09] MEDS: SENNOSIDES/DOCUSATE COMBO (SENNA PLUS) TABLET (UD) PO SCH (22:09)
[2022-03-09] MEDS: ATORVASTATIN CA 80 MG TABLET (FP) PO SCH (22:09)
[2022-03-10] MEDS: INSULIN SLIDING SCALE (NOVOLOG) 1 VIAL SQ SCH ×3 (06:29→16:45)
[2022-03-10] MEDS: INSULIN (LEVEMIR) 100 UNITS/ML UNITS SQ SCH (06:30)
[2022-03-10] MEDS: SEVELAMER CARBONATE 800 MG TAB (FP) PO SCH ×3 (08:16→16:45)
[2022-03-10] MEDS: LABETALOL HCL 100 MG TABLET (FP) PO SCH ×2 (09:45→22:08)
[2022-03-10] MEDS: LOSARTAN POTASSIUM 50 MG TABLET PO SCH (09:45)
[2022-03-10] MEDS: TORSEMIDE 100 MG TABLET PO SCH (09:46)
[2022-03-10] MEDS: NIFEdipine E.R 60 MG TABLET PO SCH (09:46)
[2022-03-10] MEDS: CLOPIDOGREL BISULFATE 75 MG TABLET (FP) PO SCH (09:46)
[2022-03-10] MEDS: CLOTRIMAZOLE 1% CREAM TP SCH ×2 (09:46→22:07)
[2022-03-10] MEDS: NYSTATIN POWDER 100,000 UNITS/GM - 15 GM TOPICAL POWDER TP SCH ×2 (10:12→22:08)
[2022-03-10] MEDS: COLLAGENASE CLOSTRIDIUM HIST. 30 GRAMS TUBE TP SCH (10:12)
[2022-03-10 13:10] LABS: HEMATOCRIT 30.6 % (35.4-49); HEMOGLOBIN 9.6 GM/dL (11.7-16.9); MCH 28.8 pg (25.7-33.7); MCHC 31.4 g/dl (32.0-35.9); MEAN CELL VOLUME 91.7 fl (80-96); MEAN PLT VOLUME 7.4 fl (7.5-11.1); PLATELET COUNT 346 10^3/uL (134-434); RBC 3.33 M/mm3 (4.00-5.60); RDW 13.9 % (11.9-15.9); WHITE BLOOD COUNT 5.2 K/mm3 (4.0-10.0)
[2022-03-10 13:28] LABS: CALCIUM 8.2 mg/dL (8.5-10.1)
[2022-03-10 13:29] LABS: BLOOD UREA NITROGEN 61.5 mg/dL (7-18)
[2022-03-10 13:32] LABS: PHOSPHOROUS 4.5 mg/dL (2.5-4.9)
[2022-03-10] MEDS: oxyCODONE HCL 5 MG TABLET PO PRN (17:13)
[2022-03-10] MEDS: MELATONIN 5 MG TABLETS PO SCH (22:07)
[2022-03-10] MEDS: ATORVASTATIN CA 80 MG TABLET (FP) PO SCH (22:07)
[2022-03-10] MEDS: SENNOSIDES/DOCUSATE COMBO (SENNA PLUS) TABLET (UD) PO SCH (22:10)
[2022-03-11] MEDS: INSULIN SLIDING SCALE (NOVOLOG) 1 VIAL SQ SCH ×3 (06:28→16:34)
[2022-03-11] MEDS: INSULIN (LEVEMIR) 100 UNITS/ML UNITS SQ SCH (06:28)
[2022-03-11] MEDS ORDERED: SODIUM CHLORIDE 250 ML IV PRN ×2 (08:01→08:02)
[2022-03-11 08:46] LABS: HEMATOCRIT 28.5 % (35.4-49); HEMOGLOBIN 9.3 GM/dL (11.7-16.9); MCHC 32.7 g/dl (32.0-35.9); MEAN CELL VOLUME 91.7 fl (80-96); MEAN PLT VOLUME 6.9 fl (7.5-11.1); PLATELET COUNT 319 10^3/uL (134-434); RBC 3.11 M/mm3 (4.00-5.60); RDW 13.8 % (11.9-15.9); WHITE BLOOD COUNT 5.1 K/mm3 (4.0-10.0)
[2022-03-11] MEDS: SEVELAMER CARBONATE 800 MG TAB (FP) PO SCH ×3 (08:52→16:34)
[2022-03-11 09:05] LABS: CHLORIDE 101 mmol/L (98-107); SODIUM 138 mmol/L (136-145)
[2022-03-11 09:06] LABS: CALCIUM 8.4 mg/dL (8.5-10.1)
[2022-03-11 09:07] LABS: ANION GAP 8 MMOL/L (8-16); CO2 29 mmol/L (21-32); GLUCOSE,RANDOM 112 mg/dL (74-106)
[2022-03-11 09:10] LABS: CREATININE 8.6 mg/dL (0.55-1.3)
[2022-03-11] MEDS: LABETALOL HCL 100 MG TABLET (FP) PO SCH ×2 (10:15→21:38)
[2022-03-11] MEDS: LOSARTAN POTASSIUM 50 MG TABLET PO SCH (10:15)
[2022-03-11] MEDS: oxyCODONE HCL 5 MG TABLET PO PRN ×2 (10:16→21:43)
[2022-03-11] MEDS: NIFEdipine E.R 60 MG TABLET PO SCH (10:16)
[2022-03-11] MEDS: TORSEMIDE 100 MG TABLET PO SCH (10:17)
[2022-03-11] MEDS: CLOPIDOGREL BISULFATE 75 MG TABLET (FP) PO SCH (10:17)
[2022-03-11] MEDS: COLLAGENASE CLOSTRIDIUM HIST. 30 GRAMS TUBE TP SCH (10:17)
[2022-03-11] MEDS: CLOTRIMAZOLE 1% CREAM TP SCH ×2 (10:17→23:38)
[2022-03-11] MEDS: NYSTATIN POWDER 100,000 UNITS/GM - 15 GM TOPICAL POWDER TP SCH ×2 (10:17→23:38)
[2022-03-11] MEDS: MEROPENEM 1 GM in DEXTROSE 5%-WATER 100 ML IVPB SCH (14:24)
[2022-03-11] MEDS: MELATONIN 5 MG TABLETS PO SCH (21:38)
[2022-03-11] MEDS: ATORVASTATIN CA 80 MG TABLET (FP) PO SCH (21:38)
[2022-03-11] MEDS: SENNOSIDES/DOCUSATE COMBO (SENNA PLUS) TABLET (UD) PO SCH (22:24)
[2022-03-12] MEDS: INSULIN SLIDING SCALE (NOVOLOG) 1 VIAL SQ SCH ×3 (06:00→16:38)
[2022-03-12] MEDS: INSULIN (LEVEMIR) 100 UNITS/ML UNITS SQ SCH (06:23)
[2022-03-12] MEDS: oxyCODONE HCL 5 MG TABLET PO PRN ×3 (08:54→22:25)
[2022-03-12] MEDS: LOSARTAN POTASSIUM 50 MG TABLET PO SCH (09:10)
[2022-03-12] MEDS: LABETALOL HCL 100 MG TABLET (FP) PO SCH ×2 (09:10→22:21)
[2022-03-12] MEDS: TORSEMIDE 100 MG TABLET PO SCH (09:10)
[2022-03-12] MEDS: COLLAGENASE CLOSTRIDIUM HIST. 30 GRAMS TUBE TP SCH (09:10)
[2022-03-12] MEDS: SEVELAMER CARBONATE 800 MG TAB (FP) PO SCH ×3 (09:10→16:39)
[2022-03-12] MEDS: CLOTRIMAZOLE 1% CREAM TP SCH ×2 (09:10→22:22)
[2022-03-12] MEDS: CALCITRIOL 0.25 MCG CAPSULE (FP) PO SCH (09:10)
[2022-03-12] MEDS: CLOPIDOGREL BISULFATE 75 MG TABLET (FP) PO SCH (09:10)
[2022-03-12] MEDS: NIFEdipine E.R 60 MG TABLET PO SCH (09:10)
[2022-03-12] MEDS: NYSTATIN POWDER 100,000 UNITS/GM - 15 GM TOPICAL POWDER TP SCH ×2 (09:10→22:22)
[2022-03-12] MEDS: MEROPENEM 1 GM in DEXTROSE 5%-WATER 100 ML IVPB SCH (09:10)
[2022-03-12 09:48] LABS: HEMATOCRIT 27.1 % (35.4-49); HEMOGLOBIN 8.9 GM/dL (11.7-16.9); MCH 29.9 pg (25.7-33.7); MEAN CELL VOLUME 90.7 fl (80-96); MEAN PLT VOLUME 7.2 fl (7.5-11.1); PLATELET COUNT 303 10^3/uL (134-434); RBC 2.99 M/mm3 (4.00-5.60); RDW 13.9 % (11.9-15.9); WHITE BLOOD COUNT 5.6 K/mm3 (4.0-10.0)
[2022-03-12 10:07] LABS: CHLORIDE 98 mmol/L (98-107); SODIUM 135 mmol/L (136-145)
[2022-03-12 10:09] LABS: ANION GAP 10 MMOL/L (8-16); BLOOD UREA NITROGEN 100.9 mg/dL (7-18); CALCIUM 8.4 mg/dL (8.5-10.1); CO2 27 mmol/L (21-32); GLUCOSE,RANDOM 163 mg/dL (74-106)
[2022-03-12 10:12] LABS: PHOSPHOROUS 5.6 mg/dL (2.5-4.9)
[2022-03-12] MEDS: EPOETIN ALFA-EPBX 4,000 UNIT/ML VIAL IVPUSH SCH (10:37)
[2022-03-12] MEDS: MELATONIN 5 MG TABLETS PO SCH (22:21)
[2022-03-12] MEDS: ATORVASTATIN CA 80 MG TABLET (FP) PO SCH (22:21)
[2022-03-12] MEDS: SENNOSIDES/DOCUSATE COMBO (SENNA PLUS) TABLET (UD) PO SCH (22:21)
[2022-03-13] MEDS: INSULIN SLIDING SCALE (NOVOLOG) 1 VIAL SQ SCH ×3 (06:26→17:15)
[2022-03-13] MEDS: oxyCODONE HCL 5 MG TABLET PO PRN (06:26)
[2022-03-13] MEDS: INSULIN (LEVEMIR) 100 UNITS/ML UNITS SQ SCH (06:32)
[2022-03-13] MEDS: SEVELAMER CARBONATE 800 MG TAB (FP) PO SCH ×3 (08:52→18:43)
[2022-03-13] MEDS: CLOPIDOGREL BISULFATE 75 MG TABLET (FP) PO SCH (09:44)
[2022-03-13] MEDS: LABETALOL HCL 100 MG TABLET (FP) PO SCH ×2 (09:44→22:14)
[2022-03-13] MEDS: NIFEdipine E.R 60 MG TABLET PO SCH (09:44)
[2022-03-13] MEDS: LOSARTAN POTASSIUM 50 MG TABLET PO SCH (09:44)
[2022-03-13] MEDS: NYSTATIN POWDER 100,000 UNITS/GM - 15 GM TOPICAL POWDER TP SCH ×2 (09:49→22:15)
[2022-03-13] MEDS: TORSEMIDE 100 MG TABLET PO SCH (09:51)
[2022-03-13 11:00] LABS: HEMATOCRIT 28.3 % (35.4-49); MCH 29.2 pg (25.7-33.7); MCHC 31.8 g/dl (32.0-35.9); MEAN CELL VOLUME 91.7 fl (80-96); MEAN PLT VOLUME 7.4 fl (7.5-11.1); PLATELET COUNT 344 10^3/uL (134-434); RBC 3.09 M/mm3 (4.00-5.60); RDW 13.9 % (11.9-15.9); WHITE BLOOD COUNT 5.6 K/mm3 (4.0-10.0)
[2022-03-13] MEDS: MEROPENEM 1 GM in DEXTROSE 5%-WATER 100 ML IVPB SCH (11:09)
[2022-03-13] MEDS: COLLAGENASE CLOSTRIDIUM HIST. 30 GRAMS TUBE TP SCH (11:09)
[2022-03-13 11:29] LABS: CALCIUM 8.2 mg/dL (8.5-10.1)
[2022-03-13 11:30] LABS: ALBUMIN 2.7 g/dl (3.4-5.0)
[2022-03-13 11:35] LABS: BILIRUBIN,TOTAL 0.6 mg/dL (0.2-1); TOT PROT 7.7 g/dl (6.4-8.2)
[2022-03-13 11:37] LABS: BLOOD UREA NITROGEN 56.9 mg/dL (7-18)
[2022-03-13] MEDS ORDERED: SODIUM CHLORIDE 250 ML IV PRN (11:45)
[2022-03-13] MEDS: CLOTRIMAZOLE 1% CREAM TP SCH ×2 (14:55→22:14)
[2022-03-13] MEDS: MELATONIN 5 MG TABLETS PO SCH (22:14)
[2022-03-13] MEDS: ATORVASTATIN CA 80 MG TABLET (FP) PO SCH (22:14)
[2022-03-13] MEDS: SENNOSIDES/DOCUSATE COMBO (SENNA PLUS) TABLET (UD) PO SCH (22:15)
[2022-03-14] MEDS: INSULIN (LEVEMIR) 100 UNITS/ML UNITS SQ SCH ×2 (06:23→06:28)
[2022-03-14] MEDS: INSULIN SLIDING SCALE (NOVOLOG) 1 VIAL SQ SCH ×2 (06:25→14:13)
[2022-03-14] MEDS ORDERED: VANCOMYCIN 1 GM PREMIX - 1 GM/200 ML BAG IVPB ONE ×2 (08:00→11:00)
[2022-03-14 09:57] VITALS: RESP 18
[2022-03-14] MEDS ORDERED: SODIUM CHLORIDE 250 ML IV PRN ×2 (10:51→11:00)
[2022-03-14 10:53] LABS: CHLORIDE 101 mmol/L (98-107); SODIUM 138 mmol/L (136-145)
[2022-03-14 10:55] LABS: ANION GAP 8 MMOL/L (8-16); BLOOD UREA NITROGEN 70.8 mg/dL (7-18); CO2 29 mmol/L (21-32); GLUCOSE,RANDOM 178 mg/dL (74-106)
[2022-03-14 10:56] LABS: CALCIUM 8.4 mg/dL (8.5-10.1)
[2022-03-14 10:57] LABS: HEMATOCRIT 27.1 % (35.4-49); HEMOGLOBIN 8.8 GM/dL (11.7-16.9); MCH 29.6 pg (25.7-33.7); MCHC 32.3 g/dl (32.0-35.9); MEAN CELL VOLUME 91.6 fl (80-96); MEAN PLT VOLUME 7.7 fl (7.5-11.1); PLATELET COUNT 310 10^3/uL (134-434); RBC 2.96 M/mm3 (4.00-5.60); RDW 14.3 % (11.9-15.9); WHITE BLOOD COUNT 6.1 K/mm3 (4.0-10.0)
[2022-03-14 11:09] LABS: CREATININE 8.8 mg/dL (0.55-1.3)
[2022-03-14] MEDS ORDERED: GENTAMICIN INJECTION 100 MG in SODIUM CHLORIDE 97.5 ML IVPB ONE (11:15)
[2022-03-14] MEDS: EPOETIN ALFA-EPBX 4,000 UNIT/ML VIAL IVPUSH SCH (11:40)
[2022-03-14] MEDS ORDERED: oxyCODONE HCL 5 MG TABLET PO PRN (11:41)
[2022-03-14] MEDS: CLOPIDOGREL BISULFATE 75 MG TABLET (FP) PO SCH (13:09)
[2022-03-14] MEDS: LABETALOL HCL 100 MG TABLET (FP) PO SCH (13:10)
[2022-03-14] MEDS: NIFEdipine E.R 60 MG TABLET PO SCH (13:10)
[2022-03-14] MEDS: LOSARTAN POTASSIUM 50 MG TABLET PO SCH (13:10)
[2022-03-14] MEDS: TORSEMIDE 100 MG TABLET PO SCH (13:11)
[2022-03-14] MEDS: CALCITRIOL 0.25 MCG CAPSULE (FP) PO SCH (13:11)
[2022-03-14] MEDS: SEVELAMER CARBONATE 800 MG TAB (FP) PO SCH ×2 (13:13→14:13)
[2022-03-14] MEDS: NYSTATIN POWDER 100,000 UNITS/GM - 15 GM TOPICAL POWDER TP SCH (13:14)
[2022-03-14] MEDS: CLOTRIMAZOLE 1% CREAM TP SCH (13:14)
[2022-03-14] MEDS: COLLAGENASE CLOSTRIDIUM HIST. 30 GRAMS TUBE TP SCH (13:15)
[2022-03-14] MEDS: MEROPENEM 1 GM in DEXTROSE 5%-WATER 100 ML IVPB SCH (14:51)
[2022-03-14 15:38] VITALS: BP 186/84; PULSE 77; TEMP 98.9
== END 2022-03-14 18:19 | DRG 853 ==
LOC: JER 18:41 → INTOOBSV 02-22 05:08 → JERBED 02-22 05:08 → UNDOADMOB 02-22 05:08 → JERBED 02-22 07:47 → OBSVTOIN 02-22 07:47 → INTOOBSV 02-22 07:47 → J4S 02-22 18:45 → JERBED 02-22 18:45 → OBSVTOIN 02-23 13:56 → JERBED 02-23 13:56 → J4S 02-23 13:56 → J6S 02-27 22:32 → J5S 03-01 15:34
PROVIDERS: ADMIT Hospitalist; ATTEND Internal Medicine
PROC: 5A1D70Z Performance of Urinary Filtration, Intermittent, Less than 6 Hours Per Day (ICD-10-PCS; 2022-02-22)
PROC: 0QBP0ZZ Excision of Left Metatarsal, Open Approach (ICD-10-PCS; principal; 2022-03-05)
DX: A41.9 Sepsis, unspecified organism (principal); N18.6 End stage renal disease; I50.32 Chronic diastolic (congestive) heart failure; M86.672 Other chronic osteomyelitis, left ankle and foot; I13.2 Hypertensive heart and chronic kidney disease with heart failure and with stage 5 chronic kidney disease, or end stage renal disease; E87.2 Acidosis; E87.1 Hypo-osmolality and hyponatremia; L02.612 Cutaneous abscess of left foot; L97.529 Non-pressure chronic ulcer of other part of left foot with unspecified severity; I73.9 Peripheral vascular disease, unspecified; Z99.2 Dependence on renal dialysis; E11.22 Type 2 diabetes mellitus with diabetic chronic kidney disease; E11.51 Type 2 diabetes mellitus with diabetic peripheral angiopathy without gangrene; I25.10 Atherosclerotic heart disease of native coronary artery without angina pectoris; K21.9 Gastro-esophageal reflux disease without esophagitis; E11.621 Type 2 diabetes mellitus with foot ulcer; E11.69 Type 2 diabetes mellitus with other specified complication; E11.65 Type 2 diabetes mellitus with hyperglycemia; E11.40 Type 2 diabetes mellitus with diabetic neuropathy, unspecified; Z86.16 Personal history of COVID-19; R94.31 Abnormal electrocardiogram [ECG] [EKG]; E87.8 Other disorders of electrolyte and fluid balance, not elsewhere classified; D63.1 Anemia in chronic kidney disease; L29.9 Pruritus, unspecified; E87.5 Hyperkalemia; Z79.4 Long term (current) use of insulin
CPT/HCPCS: 0241U-QW; 15275; 36415; 71045-TC-FY; 73630-TC-LT; 73718-TC-LT; 80048; 80053; 82803; 82962; 83036; 83605; 83735; 84100; 84484; 85025; 85027; 85610; 85651; 85730; 86140; 86803; 86850; 86900; 86901; 87040; 87070; 87075; 87186; 87205; 87340; 88307-TC; 88311-TC; 93005; 93010; 93306-TC; 93990-TC; 97161-GP; 99285-25; C9803-CS; G0480; J1644; Q4196; Q5106; U0003; U0005

== ENCOUNTER 2022-06-23 08:34 | Inpatient (IN) | payer OTHER ==
[2022-06-23] MEDS ORDERED: LOSARTAN POTASSIUM 50 MG TABLET PO ONE ×2 (09:28→11:45)
[2022-06-23] MEDS ORDERED: LABETALOL HCL 5 MG/1 ML (100MG/20 ML VIAL) IVPUSH ONE ×2 (09:35→15:23)
[2022-06-23] MEDS ORDERED: ONDANSETRON 4 MG/2 ML VIAL IVPUSH ONE (09:47)
[2022-06-23] MEDS ORDERED: ONDANSETRON 4 MG/2 ML VIAL ONE (09:51)
[2022-06-23] MEDS ORDERED: LABETALOL HCL 5 MG/1 ML (100MG/20 ML VIAL) ONE (09:51)
[2022-06-23 09:59] LABS: VENOUS BASE EXCESS -2.4 mmol/L (-2-2); VENOUS O2 SATURATION 60.2 % (70-80); VENOUS PH 7.29 (7.310-7.410)
[2022-06-23 10:11] LABS: INR 1.18 (0.83-1.09); PROTHROMBIN TIME (PATIENT) 13.6 SEC (9.7-13.0)
[2022-06-23 10:14] LABS: ACTIVATED PTT 30.2 SECONDS (25.2-36.5)
[2022-06-23 10:21] LABS: BASO % 0.8 % (0-2.0); EOS % 0.2 % (0-4.5); HEMATOCRIT 40.7 % (35.4-49); LYMPH % 9.1 % (8-40); MCH 30.2 pg (25.7-33.7); MCHC 31.9 g/dl (32.0-35.9); MEAN CELL VOLUME 94.8 fl (80-96); MEAN PLT VOLUME 8.4 fl (7.5-11.1); MONO % 5.7 % (3.8-10.2); NEUT % 84.2 % (42.8-82.8); PLATELET COUNT 209 10^3/uL (134-434); RDW 14.2 % (11.9-15.9); WHITE BLOOD COUNT 7.9 K/mm3 (4.0-10.0)
[2022-06-23 10:52] LABS: N-TERMINAL BNP 158157.1 pg/ml (5-125)
[2022-06-23] MEDS ORDERED: LOSARTAN POTASSIUM 50 MG TABLET ONE (11:49)
[2022-06-23] MEDS ORDERED: NIFEdipine E.R 60 MG TABLET ONE (11:50)
[2022-06-23] MEDS: NIFEdipine E.R 60 MG TABLET PO SCH (11:54)
[2022-06-23 12:09] LABS: CHLORIDE 88 mmol/L (98-107); SODIUM 129 mmol/L (136-145)
[2022-06-23 12:11] LABS: CALCIUM 8.4 mg/dL (8.5-10.1)
[2022-06-23 12:12] LABS: ALBUMIN 3.7 g/dl (3.4-5.0); ANION GAP 21 MMOL/L (8-16); BLOOD UREA NITROGEN 67.3 mg/dL (7-18); CO2 21 mmol/L (21-32); MAGNESIUM 2.4 mg/dL (1.8-2.4)
[2022-06-23 12:14] LABS: PHOSPHOROUS 4.4 mg/dL (2.5-4.9)
[2022-06-23 12:15] LABS: SGOT/AST 16 U/L (15-37); SGPT/ALT 32 U/L (13-61)
[2022-06-23 12:16] LABS: BILIRUBIN,TOTAL 0.4 mg/dL (0.2-1); TOT PROT 8.9 g/dl (6.4-8.2)
[2022-06-23 12:17] LABS: ALK PHOS 141 U/L (45-117)
[2022-06-23 12:28] LABS: GLUCOSE,RANDOM 1009 mg/dL (74-106)
[2022-06-23] MEDS ORDERED: INSULIN REGULAR HUMAN 100 UNITS/ML *VIAL IVPUSH ONE (12:35)
[2022-06-23] MEDS ORDERED: DEXTROSE 50%-WATER - 25 GM/50 ML VIAL IVPUSH PRN (12:39)
[2022-06-23] MEDS: INSULIN REGULAR 100 UNITS in SODIUM CHLORIDE 99 ML IVPB SCH (13:17)
[2022-06-23] MEDS ORDERED: LACTATED RINGERS SOLUTION 1000 ML INFUS.BAG IV ONE (15:15)
[2022-06-23] MEDS: LABETALOL HCL 100 MG TABLET (FP) PO SCH ×2 (15:38→23:00)
[2022-06-23] MEDS: CLOPIDOGREL BISULFATE 75 MG TABLET (FP) PO SCH (15:40)
[2022-06-23 16:28] VITALS: BMI 27.9
[2022-06-23] MEDS ORDERED: FAMOTIDINE 20 MG TABLET PO ONE (17:35)
[2022-06-23 19:02] LABS: CHLORIDE 98 mmol/L (98-107); SODIUM 141 mmol/L (136-145)
[2022-06-23 19:03] LABS: CALCIUM 8.3 mg/dL (8.5-10.1)
[2022-06-23 19:04] LABS: ANION GAP 19 MMOL/L (8-16); BLOOD UREA NITROGEN 69.8 mg/dL (7-18); CO2 24 mmol/L (21-32); GLUCOSE,RANDOM 170 mg/dL (74-106)
[2022-06-23 19:11] LABS: CREATININE 10.2 mg/dL (0.55-1.3)
[2022-06-23] MEDS: INSULIN (LEVEMIR) 100 UNITS/ML UNITS SQ SCH ×2 (19:50→21:31)
[2022-06-23] MEDS ORDERED: DEXTROSE 50%-WATER 25 GM/50 ML DISP.SYRIN IVPUSH ONE (21:05)
[2022-06-23] MEDS ORDERED: DEXTROSE 50%-WATER 25 GM/50 ML DISP.SYRIN ONE (21:11)
[2022-06-23] MEDS: MUPIROCIN 2% TOPICAL OINTMENT FOR DECOLONIZATION NS SCH (21:30)
[2022-06-23] MEDS: CHLORHEXIDINE GLUCONATE 4% CLEANSER FOR DECOLONIZATION TP SCH (21:30)
[2022-06-23] MEDS: INSULIN SLIDING SCALE (NOVOLOG) 1 VIAL SQ SCH (21:31)
[2022-06-23] MEDS: ATORVASTATIN CA 80 MG TABLET (FP) PO SCH (21:31)
[2022-06-24] MEDS: INSULIN REGULAR 100 UNITS in SODIUM CHLORIDE 99 ML IVPB SCH (06:12)
[2022-06-24] MEDS: INSULIN SLIDING SCALE (NOVOLOG) 1 VIAL SQ SCH ×4 (06:40→21:35)
[2022-06-24 07:47] LABS: BASO % 0.5 % (0-2.0); EOS % 0.9 % (0-4.5); HEMATOCRIT 33.6 % (35.4-49); HEMOGLOBIN 11.3 GM/dL (11.7-16.9); LYMPH % 11.7 % (8-40); MCH 30.4 pg (25.7-33.7); MCHC 33.6 g/dl (32.0-35.9); MEAN CELL VOLUME 90.4 fl (80-96); MEAN PLT VOLUME 8.2 fl (7.5-11.1); MONO % 5.8 % (3.8-10.2); NEUT % 81.1 % (42.8-82.8); PLATELET COUNT 235 10^3/uL (134-434); RBC 3.71 M/mm3 (4.00-5.60); RDW 13.8 % (11.9-15.9); WHITE BLOOD COUNT 9.8 K/mm3 (4.0-10.0)
[2022-06-24] MEDS: SODIUM CHLORIDE 250 ML IV PRN ×2 (07:55→11:40)
[2022-06-24 08:07] LABS: CHLORIDE 96 mmol/L (98-107); SODIUM 133 mmol/L (136-145)
[2022-06-24 08:15] LABS: GLUCOSE,RANDOM 297 mg/dL (74-106)
[2022-06-24 08:16] LABS: ANION GAP 15 MMOL/L (8-16); BLOOD UREA NITROGEN 75.8 mg/dL (7-18); CALCIUM 8.1 mg/dL (8.5-10.1); CO2 23 mmol/L (21-32)
[2022-06-24 08:17] LABS: MAGNESIUM 2.2 mg/dL (1.8-2.4)
[2022-06-24 08:19] LABS: SGOT/AST 13 U/L (15-37)
[2022-06-24 08:20] LABS: PHOSPHOROUS 3.5 mg/dL (2.5-4.9); SGPT/ALT 23 U/L (13-61)
[2022-06-24 08:21] LABS: TOT PROT 7.2 g/dl (6.4-8.2)
[2022-06-24 08:22] LABS: ALK PHOS 101 U/L (45-117); CREATININE 10.8 mg/dL (0.55-1.3)
[2022-06-24] MEDS ORDERED: EPOETIN ALFA-EPBX 4,000 UNIT/ML VIAL IVPUSH ONE (09:00)
[2022-06-24] MEDS: MUPIROCIN 2% TOPICAL OINTMENT FOR DECOLONIZATION NS SCH ×2 (09:13→21:34)
[2022-06-24] MEDS: NIFEdipine E.R 60 MG TABLET PO SCH (09:16)
[2022-06-24] MEDS: LABETALOL HCL 100 MG TABLET (FP) PO SCH ×2 (09:16→21:34)
[2022-06-24] MEDS: CLOPIDOGREL BISULFATE 75 MG TABLET (FP) PO SCH (09:16)
[2022-06-24] MEDS ORDERED: ONDANSETRON 4 MG/2 ML VIAL IVPUSH ONE (18:53)
[2022-06-24] MEDS: CHLORHEXIDINE GLUCONATE 4% CLEANSER FOR DECOLONIZATION TP SCH (21:34)
[2022-06-24] MEDS: ATORVASTATIN CA 80 MG TABLET (FP) PO SCH (21:34)
[2022-06-24] MEDS: INSULIN (LEVEMIR) 100 UNITS/ML UNITS SQ SCH (21:35)
[2022-06-25] MEDS: INSULIN SLIDING SCALE (NOVOLOG) 1 VIAL SQ SCH ×3 (06:09→16:23)
[2022-06-25] MEDS: LABETALOL HCL 100 MG TABLET (FP) PO SCH (11:32)
[2022-06-25] MEDS: NIFEdipine E.R 60 MG TABLET PO SCH (11:32)
[2022-06-25] MEDS: CLOPIDOGREL BISULFATE 75 MG TABLET (FP) PO SCH (11:32)
[2022-06-25] MEDS: INSULIN REGULAR 100 UNITS in SODIUM CHLORIDE 99 ML IVPB SCH (11:33)
[2022-06-25] MEDS ORDERED: METOCLOPRAMIDE HCL 10 MG TABLET (FP) PO ONE (13:57)
[2022-06-25 14:08] VITALS: BP 155/68; PULSE 66; RESP 17; TEMP 97.7
== END 2022-06-25 18:07 | disposition home or self-care (01) | DRG 637 ==
LOC: JER 08:34 → JERBED 13:29 → JICU 15:31 → J4S 06-24 22:55
PROVIDERS: ADMIT Internal Medicine Pulmonary Disease; ATTEND Internal Medicine
PROC: 5A1D70Z Performance of Urinary Filtration, Intermittent, Less than 6 Hours Per Day (ICD-10-PCS; principal; 2022-06-23)
DX: E11.00 Type 2 diabetes mellitus with hyperosmolarity without nonketotic hyperglycemic-hyperosmolar coma (NKHHC) (principal); N18.6 End stage renal disease; I13.2 Hypertensive heart and chronic kidney disease with heart failure and with stage 5 chronic kidney disease, or end stage renal disease; I50.32 Chronic diastolic (congestive) heart failure; E87.29 Other acidosis; E11.65 Type 2 diabetes mellitus with hyperglycemia; E11.22 Type 2 diabetes mellitus with diabetic chronic kidney disease; Z99.2 Dependence on renal dialysis; I16.0 Hypertensive urgency; E11.51 Type 2 diabetes mellitus with diabetic peripheral angiopathy without gangrene; R11.2 Nausea with vomiting, unspecified; Z79.4 Long term (current) use of insulin; I25.10 Atherosclerotic heart disease of native coronary artery without angina pectoris
CPT/HCPCS: 0241U-QW; 36415; 71045-TC-FY; 80048; 80053; 82550; 82803; 82962; 83735; 83880; 84100; 84484; 85025; 85610; 85730; 86850; 86900; 86901; 87040; 93005; 93010; 99285-25; Q5106

== ENCOUNTER 2022-06-27 13:14 | Inpatient (IN) | payer OTHER ==
[2022-06-27] MEDS ORDERED: SODIUM CHLORIDE 0.9% 1000 ML INFUS.BAG IV ONE (14:10)
[2022-06-27] MEDS ORDERED: ONDANSETRON 4 MG/2 ML VIAL IVPUSH ONE (14:10)
[2022-06-27] MEDS ORDERED: SODIUM CHLORIDE 0.9% 500 ML INFUS.BAG IV ONE (14:35)
[2022-06-27 15:08] LABS: VENOUS BASE EXCESS -2.7 mmol/L (-2-2); VENOUS O2 SATURATION 88.4 % (70-80); VENOUS PCO2 40.5 mmHg (38-52); VENOUS PH 7.362 (7.310-7.410)
[2022-06-27 15:12] LABS: BASO % 0.7 % (0-2.0); EOS % 2.7 % (0-4.5); HEMATOCRIT 34.6 % (35.4-49); HEMOGLOBIN 10.8 GM/dL (11.7-16.9); LYMPH % 13.3 % (8-40); MCH 28.9 pg (25.7-33.7); MCHC 31.2 g/dl (32.0-35.9); MEAN CELL VOLUME 92.6 fl (80-96); MEAN PLT VOLUME 8.3 fl (7.5-11.1); MONO % 8.1 % (3.8-10.2); NEUT % 75.2 % (42.8-82.8); PLATELET COUNT 208 10^3/uL (134-434); RBC 3.73 M/mm3 (4.00-5.60); RDW 14.2 % (11.9-15.9); WHITE BLOOD COUNT 6.4 K/mm3 (4.0-10.0)
[2022-06-27 15:27] LABS: CHLORIDE 94 mmol/L (98-107); SODIUM 132 mmol/L (136-145)
[2022-06-27 15:31] LABS: LIPASE 419 U/L (73-393)
[2022-06-27 15:33] LABS: SGPT/ALT 27 U/L (13-61)
[2022-06-27 15:34] LABS: SGOT/AST 39 U/L (15-37)
[2022-06-27 15:35] LABS: BILIRUBIN,TOTAL 0.7 mg/dL (0.2-1); TOT PROT 7.3 g/dl (6.4-8.2)
[2022-06-27 15:36] LABS: ALK PHOS 122 U/L (45-117)
[2022-06-27 15:39] LABS: ANION GAP 14 MMOL/L (8-16); CALCIUM 7.5 mg/dL (8.5-10.1); CO2 25 mmol/L (21-32)
[2022-06-27 15:40] LABS: BLOOD UREA NITROGEN 73.6 mg/dL (7-18)
[2022-06-27 15:49] LABS: CREATININE 10.7 mg/dL (0.55-1.3); GLUCOSE,RANDOM 600 mg/dL (74-106)
[2022-06-27] MEDS ORDERED: INSULIN REGULAR HUMAN 100 UNITS/ML *VIAL SQ ONE (16:00)
[2022-06-27] MEDS ORDERED: ONDANSETRON 4 MG/2 ML VIAL ONE (16:01)
[2022-06-27] MEDS ORDERED: INSULIN (NOVOLOG) ASPART 100 UNITS/ML 10ML VIAL SQ ONE (16:06)
[2022-06-27] MEDS ORDERED: LABETALOL HCL 100 MG TABLET (FP) PO ONE (17:16)
[2022-06-27] MEDS ORDERED: NIFEdipine E.R 60 MG TABLET PO ONE (17:17)
[2022-06-27] MEDS ORDERED: NIFEdipine E.R 60 MG TABLET ONE (17:31)
[2022-06-27] MEDS ORDERED: LABETALOL HCL 100 MG TABLET (FP) ONE (17:31)
[2022-06-27] MEDS ORDERED: PIPERACILLIN/TAZOB 3.375 GM 3.375 GM in DEXTROSE 5%-WATER - 50 ML IVPB ONE (21:00)
[2022-06-27] MEDS ORDERED: PIPERACILLIN/TAZOB 2.25 GM 2.25 GM in DEXTROSE 5%-WATER - 50 ML IVPB ONE (21:03)
[2022-06-27] MEDS ORDERED: PIPERACILLIN/TAZOB 2.25 GM 2.25 GM/50 ML BAG IVPB ONE (21:19)
[2022-06-28] MEDS ORDERED: PIPERACILLIN/TAZOB 2.25 GM 2.25 GM in DEXTROSE 5%-WATER - 50 ML IVPB SCH (03:00)
[2022-06-28] MEDS ORDERED: INSULIN SLIDING SCALE (NOVOLOG) 1 VIAL SQ SCH (07:00)
[2022-06-28] MEDS ORDERED: SODIUM CHLORIDE 250 ML IV PRN (09:07)
[2022-06-28] MEDS ORDERED: INSULIN (LEVEMIR) 100 UNITS/ML UNITS SQ SCH ×4 (09:16→22:00)
[2022-06-28] MEDS: CEFTRIAXONE 1 GM in DEXTROSE 5%-WATER - 50 ML IVPB SCH ×2 (09:50→15:31)
[2022-06-28] MEDS ORDERED: NIFEdipine E.R 60 MG TABLET PO SCH (10:00)
[2022-06-28] MEDS ORDERED: traZODone HCL 50 MG TABLET (FP) PO SCH ×2 (10:00→19:13)
[2022-06-28] MEDS ORDERED: LOSARTAN POTASSIUM 50 MG TABLET PO SCH (10:00)
[2022-06-28] MEDS ORDERED: CLOPIDOGREL BISULFATE 75 MG TABLET (FP) PO SCH (10:00)
[2022-06-28] MEDS ORDERED: BUPIVACAINE HCL/PF 0.25% (2.5MG/ML) 10 ML VIAL ONE (10:40)
[2022-06-28 12:11] VITALS: BMI 28.8
[2022-06-28] MEDS: INSULIN SLIDING SCALE (NOVOLOG) 1 VIAL SQ SCH ×2 (12:17→19:14)
[2022-06-28] MEDS ORDERED: ACETAMINOPHEN 1000 MG/100 ML BAG IVPB PRN ×3 (12:19→19:42)
[2022-06-28 12:29] LABS: BASO % 0.7 % (0-2.0); EOS % 2.8 % (0-4.5); HEMATOCRIT 31.8 % (35.4-49); HEMOGLOBIN 10.1 GM/dL (11.7-16.9); LYMPH % 19.3 % (8-40); MCH 28.8 pg (25.7-33.7); MCHC 31.6 g/dl (32.0-35.9); MEAN CELL VOLUME 91.2 fl (80-96); MEAN PLT VOLUME 7.8 fl (7.5-11.1); MONO % 7.9 % (3.8-10.2); NEUT % 69.3 % (42.8-82.8); PLATELET COUNT 194 10^3/uL (134-434); RBC 3.49 M/mm3 (4.00-5.60); WHITE BLOOD COUNT 6.9 K/mm3 (4.0-10.0)
[2022-06-28 12:47] LABS: CHLORIDE 101 mmol/L (98-107); SODIUM 137 mmol/L (136-145)
[2022-06-28 12:56] LABS: ALBUMIN 2.9 g/dl (3.4-5.0); ANION GAP 14 MMOL/L (8-16); BLOOD UREA NITROGEN 79.3 mg/dL (7-18); CALCIUM 7.3 mg/dL (8.5-10.1); CO2 22 mmol/L (21-32); GLUCOSE,RANDOM 281 mg/dL (74-106); MAGNESIUM 2.2 mg/dL (1.8-2.4)
[2022-06-28 12:58] LABS: PHOSPHOROUS 3.5 mg/dL (2.5-4.9); SGPT/ALT 21 U/L (13-61)
[2022-06-28 12:59] LABS: SGOT/AST 15 U/L (15-37); TOT PROT 6.5 g/dl (6.4-8.2)
[2022-06-28 13:00] LABS: BILIRUBIN,TOTAL 0.7 mg/dL (0.2-1)
[2022-06-28 13:01] LABS: ALK PHOS 95 U/L (45-117)
[2022-06-28 13:04] LABS: CREATININE 11.6 mg/dL (0.55-1.3)
[2022-06-28] MEDS ORDERED: ceFAZolin SODIUM 1 GM VIAL ONE (15:45)
[2022-06-28] MEDS ORDERED: ROCURONIUM BROMIDE 50 MG/5 ML SYRINGE ONE (16:10)
[2022-06-28] MEDS ORDERED: PROPOFOL 20 ML ONE (16:10)
[2022-06-28] MEDS ORDERED: DEXAMETHASONE SOD PHOSPHATE 4 MG/1 ML VIAL ONE (16:10)
[2022-06-28] MEDS ORDERED: FENTANYL CITRATE/PF 50 MCG/ML VIAL ONE ×4 (16:10→18:06)
[2022-06-28] MEDS ORDERED: LIDOCAINE HCL/PF 2% SDV 5ML VIAL ONE (16:10)
[2022-06-28] MEDS ORDERED: ONDANSETRON 4 MG/2 ML VIAL ONE (16:10)
[2022-06-28] MEDS ORDERED: BUPIVACAINE HCL/PF 0.25% (2.5MG/ML) 10 ML VIAL IJ ONE ×2 (16:41)
[2022-06-28] MEDS ORDERED: ONDANSETRON 4 MG/2 ML VIAL IVPUSH PRN ×2 (16:44→19:42)
[2022-06-28] MEDS ORDERED: oxyCODONE HCL 5 MG TABLET PO PRN ×3 (16:44→19:42)
[2022-06-28] MEDS ORDERED: SODIUM CHLORIDE 1,000 ML IV SCH ×2 (16:45→19:42)
[2022-06-28] MEDS ORDERED: SEVOFLURANE 250 ML BTL ONE (16:58)
[2022-06-28] MEDS ORDERED: GLYCOPYRROLATE 0.2 MG/1 ML VIAL ONE (18:17)
[2022-06-28] MEDS ORDERED: NEOSTIGMINE METHYLSULFATE 0.5 MG/1 ML - 10 ML MDV ONE (18:17)
[2022-06-28] MEDS ORDERED: ACETAMINOPHEN INJECTION 100 ML IVPB ONE (19:58)
[2022-06-28] MEDS: oxyCODONE HCL 5 MG TABLET PO PRN (21:46)
[2022-06-29] MEDS: oxyCODONE HCL 5 MG TABLET PO PRN ×3 (05:54→22:22)
[2022-06-29] MEDS: INSULIN SLIDING SCALE (NOVOLOG) 1 VIAL SQ SCH ×3 (05:59→17:01)
[2022-06-29] MEDS ORDERED: INSULIN (LEVEMIR) 100 UNITS/ML UNITS SQ SCH ×2 (07:00→22:00)
[2022-06-29] MEDS: LOSARTAN POTASSIUM 50 MG TABLET PO SCH (09:23)
[2022-06-29] MEDS: CLOPIDOGREL BISULFATE 75 MG TABLET (FP) PO SCH (09:23)
[2022-06-29] MEDS: traZODone HCL 50 MG TABLET (FP) PO SCH (09:23)
[2022-06-29] MEDS: NIFEdipine E.R 60 MG TABLET PO SCH (09:23)
[2022-06-29] MEDS ORDERED: CEFTRIAXONE 1 GM in DEXTROSE 5%-WATER - 50 ML IVPB SCH (10:00)
[2022-06-29 11:00] LABS: HEMATOCRIT 33.3 % (35.4-49); HEMOGLOBIN 10.6 GM/dL (11.7-16.9); MCH 29.5 pg (25.7-33.7); MEAN CELL VOLUME 92.4 fl (80-96); MEAN PLT VOLUME 7.8 fl (7.5-11.1); PLATELET COUNT 244 10^3/uL (134-434); RDW 14.2 % (11.9-15.9); WHITE BLOOD COUNT 8.3 K/mm3 (4.0-10.0)
[2022-06-29 11:15] LABS: CHLORIDE 101 mmol/L (98-107); SODIUM 139 mmol/L (136-145)
[2022-06-29 11:19] LABS: ALBUMIN 2.8 g/dl (3.4-5.0); CALCIUM 7.1 mg/dL (8.5-10.1)
[2022-06-29 11:20] LABS: ANION GAP 12 MMOL/L (8-16); CO2 26 mmol/L (21-32); GLUCOSE,RANDOM 211 mg/dL (74-106); MAGNESIUM 2.1 mg/dL (1.8-2.4)
[2022-06-29 11:22] LABS: SGPT/ALT 29 U/L (13-61)
[2022-06-29 11:23] LABS: SGOT/AST 29 U/L (15-37)
[2022-06-29 11:24] LABS: TOT PROT 6.6 g/dl (6.4-8.2)
[2022-06-29 11:25] LABS: ALK PHOS 86 U/L (45-117)
[2022-06-29 11:31] LABS: BLOOD UREA NITROGEN 41.3 mg/dL (7-18); CREATININE 7.7 mg/dL (0.55-1.3)
[2022-06-29] MEDS: LABETALOL HCL 100 MG TABLET (FP) PO SCH ×2 (13:18→21:22)
[2022-06-29] MEDS: INSULIN (LEVEMIR) 100 UNITS/ML UNITS SQ SCH (21:22)
[2022-06-29] MEDS: HEPARIN NA (PORCINE) 5,000 UNITS/ML 1ML VIAL SQ SCH (21:22)
[2022-06-29] MEDS ORDERED: ACETAMINOPHEN 500 MG TABLET (FP) PO PRN (21:44)
[2022-06-29] MEDS ORDERED: oxyCODONE HCL 5 MG TABLET PO PRN (21:45)
[2022-06-30] MEDS: HEPARIN NA (PORCINE) 5,000 UNITS/ML 1ML VIAL SQ SCH ×3 (06:08→21:50)
[2022-06-30] MEDS: INSULIN (LEVEMIR) 100 UNITS/ML UNITS SQ SCH ×2 (06:08→21:51)
[2022-06-30] MEDS: INSULIN SLIDING SCALE (NOVOLOG) 1 VIAL SQ SCH ×3 (06:09→17:50)
[2022-06-30] MEDS: LABETALOL HCL 100 MG TABLET (FP) PO SCH ×2 (09:11→21:50)
[2022-06-30] MEDS: traZODone HCL 50 MG TABLET (FP) PO SCH (09:11)
[2022-06-30] MEDS: LOSARTAN POTASSIUM 50 MG TABLET PO SCH (09:11)
[2022-06-30] MEDS: CLOPIDOGREL BISULFATE 75 MG TABLET (FP) PO SCH (09:11)
[2022-06-30] MEDS: NIFEdipine E.R 60 MG TABLET PO SCH (09:11)
[2022-06-30 09:13] LABS: HEMATOCRIT 32.2 % (35.4-49); HEMOGLOBIN 10.1 GM/dL (11.7-16.9); MCH 29.1 pg (25.7-33.7); MCHC 31.3 g/dl (32.0-35.9); MEAN CELL VOLUME 93.1 fl (80-96); MEAN PLT VOLUME 7.8 fl (7.5-11.1); PLATELET COUNT 210 10^3/uL (134-434); RBC 3.46 M/mm3 (4.00-5.60); RDW 14.4 % (11.9-15.9); WHITE BLOOD COUNT 6.8 K/mm3 (4.0-10.0)
[2022-06-30] MEDS: TORSEMIDE 100 MG TABLET PO SCH (09:22)
[2022-06-30 09:30] LABS: CHLORIDE 102 mmol/L (98-107); SODIUM 140 mmol/L (136-145)
[2022-06-30 09:36] LABS: ALBUMIN 2.8 g/dl (3.4-5.0); ANION GAP 11 MMOL/L (8-16); BLOOD UREA NITROGEN 51.4 mg/dL (7-18); CO2 27 mmol/L (21-32); GLUCOSE,RANDOM 163 mg/dL (74-106); MAGNESIUM 2.1 mg/dL (1.8-2.4)
[2022-06-30 09:39] LABS: PHOSPHOROUS 4.5 mg/dL (2.5-4.9); SGOT/AST 24 U/L (15-37); SGPT/ALT 28 U/L (13-61)
[2022-06-30 09:41] LABS: BILIRUBIN,TOTAL 0.9 mg/dL (0.2-1); TOT PROT 6.6 g/dl (6.4-8.2)
[2022-06-30 09:42] LABS: ALK PHOS 85 U/L (45-117)
[2022-06-30 10:17] LABS: CREATININE 9.3 mg/dL (0.55-1.3)
[2022-06-30] MEDS ORDERED: SODIUM CHLORIDE 250 ML IV PRN (18:31)
[2022-06-30] MEDS: oxyCODONE HCL 5 MG TABLET PO PRN (21:50)
[2022-07-01] MEDS: INSULIN (LEVEMIR) 100 UNITS/ML UNITS SQ SCH ×2 (06:35→21:24)
[2022-07-01] MEDS: HEPARIN NA (PORCINE) 5,000 UNITS/ML 1ML VIAL SQ SCH ×3 (06:35→21:23)
[2022-07-01] MEDS: INSULIN SLIDING SCALE (NOVOLOG) 1 VIAL SQ SCH ×3 (06:38→16:48)
[2022-07-01 09:08] LABS: HEMATOCRIT 30.2 % (35.4-49); HEMOGLOBIN 9.5 GM/dL (11.7-16.9); MCH 29.3 pg (25.7-33.7); MCHC 31.5 g/dl (32.0-35.9); MEAN CELL VOLUME 92.8 fl (80-96); PLATELET COUNT 214 10^3/uL (134-434); RBC 3.25 M/mm3 (4.00-5.60); RDW 14.2 % (11.9-15.9); WHITE BLOOD COUNT 6.5 K/mm3 (4.0-10.0)
[2022-07-01] MEDS ORDERED: oxyCODONE HCL 5 MG TABLET PO PRN (09:14)
[2022-07-01 09:47] LABS: CHLORIDE 101 mmol/L (98-107); SODIUM 139 mmol/L (136-145)
[2022-07-01 09:49] LABS: ALBUMIN 2.6 g/dl (3.4-5.0); ANION GAP 14 MMOL/L (8-16); CO2 24 mmol/L (21-32); GLUCOSE,RANDOM 110 mg/dL (74-106); MAGNESIUM 2.1 mg/dL (1.8-2.4)
[2022-07-01 09:53] LABS: PHOSPHOROUS 5.7 mg/dL (2.5-4.9); SGOT/AST 19 U/L (15-37); SGPT/ALT 26 U/L (13-61)
[2022-07-01 09:55] LABS: ALK PHOS 82 U/L (45-117); TOT PROT 6.4 g/dl (6.4-8.2)
[2022-07-01 09:58] LABS: CALCIUM 6.8 mg/dL (8.5-10.1); CREATININE 10.6 mg/dL (0.55-1.3)
[2022-07-01] MEDS: CLOPIDOGREL BISULFATE 75 MG TABLET (FP) PO SCH (13:10)
[2022-07-01] MEDS: NIFEdipine E.R 60 MG TABLET PO SCH (13:11)
[2022-07-01] MEDS: LABETALOL HCL 100 MG TABLET (FP) PO SCH ×2 (13:11→21:24)
[2022-07-01] MEDS: traZODone HCL 50 MG TABLET (FP) PO SCH (13:11)
[2022-07-01] MEDS: LOSARTAN POTASSIUM 50 MG TABLET PO SCH (13:11)
[2022-07-01] MEDS: TORSEMIDE 100 MG TABLET PO SCH (13:12)
[2022-07-01] MEDS: MELATONIN 5 MG TABLETS PO SCH (23:21)
[2022-07-02] MEDS: INSULIN SLIDING SCALE (NOVOLOG) 1 VIAL SQ SCH ×3 (06:10→16:54)
[2022-07-02] MEDS: HEPARIN NA (PORCINE) 5,000 UNITS/ML 1ML VIAL SQ SCH ×3 (06:12→21:44)
[2022-07-02] MEDS: INSULIN (LEVEMIR) 100 UNITS/ML UNITS SQ SCH ×2 (06:12→21:46)
[2022-07-02] MEDS: TORSEMIDE 100 MG TABLET PO SCH (09:43)
[2022-07-02] MEDS: CLOPIDOGREL BISULFATE 75 MG TABLET (FP) PO SCH (09:43)
[2022-07-02] MEDS: NIFEdipine E.R 60 MG TABLET PO SCH (09:43)
[2022-07-02] MEDS: LOSARTAN POTASSIUM 50 MG TABLET PO SCH (09:43)
[2022-07-02] MEDS: traZODone HCL 50 MG TABLET (FP) PO SCH (09:43)
[2022-07-02] MEDS: LABETALOL HCL 100 MG TABLET (FP) PO SCH ×2 (09:43→23:16)
[2022-07-02] MEDS: DOCUSATE SODIUM 100 MG CAPSULE (FP) PO SCH (13:34)
[2022-07-02] MEDS: SENNOSIDES 8.6MG TABLET (FP) PO SCH ×2 (13:34→21:45)
[2022-07-02 13:51] LABS: HEMATOCRIT 29.6 % (35.4-49); HEMOGLOBIN 9.1 GM/dL (11.7-16.9); MCHC 30.9 g/dl (32.0-35.9); MEAN CELL VOLUME 93.9 fl (80-96); MEAN PLT VOLUME 7.8 fl (7.5-11.1); PLATELET COUNT 234 10^3/uL (134-434); RBC 3.15 M/mm3 (4.00-5.60); RDW 14.3 % (11.9-15.9); WHITE BLOOD COUNT 6.4 K/mm3 (4.0-10.0)
[2022-07-02 14:11] LABS: CHLORIDE 99 mmol/L (98-107); SODIUM 141 mmol/L (136-145)
[2022-07-02 14:15] LABS: ALBUMIN 2.6 g/dl (3.4-5.0); ANION GAP 11 MMOL/L (8-16); BLOOD UREA NITROGEN 46.9 mg/dL (7-18); CALCIUM 7.2 mg/dL (8.5-10.1); CO2 31 mmol/L (21-32); GLUCOSE,RANDOM 119 mg/dL (74-106)
[2022-07-02 14:19] LABS: PHOSPHOROUS 3.5 mg/dL (2.5-4.9); SGOT/AST 21 U/L (15-37); SGPT/ALT 22 U/L (13-61)
[2022-07-02 14:20] LABS: BILIRUBIN,TOTAL 1.2 mg/dL (0.2-1); TOT PROT 6.4 g/dl (6.4-8.2)
[2022-07-02 14:22] LABS: ALK PHOS 85 U/L (45-117); CREATININE 7.8 mg/dL (0.55-1.3)
[2022-07-02] MEDS ORDERED: SODIUM CHLORIDE 250 ML IV PRN (17:07)
[2022-07-02] MEDS: MELATONIN 5 MG TABLETS PO SCH (21:44)
[2022-07-02] MEDS ORDERED: BENZOCAINE/MENTHOL (CHLORASEPTIC ) LOZENGE MM PRN (21:48)
[2022-07-03] MEDS ORDERED: CALAMINE 8% TOPICAL LOTION 177 ML BOTTLE TP PRN (04:52)
[2022-07-03] MEDS: HEPARIN NA (PORCINE) 5,000 UNITS/ML 1ML VIAL SQ SCH ×3 (06:37→21:52)
[2022-07-03] MEDS: INSULIN (LEVEMIR) 100 UNITS/ML UNITS SQ SCH ×2 (06:40→21:52)
[2022-07-03] MEDS: INSULIN SLIDING SCALE (NOVOLOG) 1 VIAL SQ SCH ×3 (06:41→17:05)
[2022-07-03] MEDS ORDERED: EPOETIN ALFA-EPBX 10,000 UNIT/ML VIAL IVPUSH ONE (08:00)
[2022-07-03 09:01] LABS: HEMATOCRIT 27.7 % (35.4-49); HEMOGLOBIN 8.6 GM/dL (11.7-16.9); MCHC 31.1 g/dl (32.0-35.9); MEAN CELL VOLUME 93.4 fl (80-96); PLATELET COUNT 232 10^3/uL (134-434); RBC 2.96 M/mm3 (4.00-5.60); RDW 14.5 % (11.9-15.9); WHITE BLOOD COUNT 6.6 K/mm3 (4.0-10.0)
[2022-07-03 09:25] LABS: CHLORIDE 100 mmol/L (98-107); SODIUM 138 mmol/L (136-145)
[2022-07-03 09:29] LABS: CALCIUM 7.1 mg/dL (8.5-10.1)
[2022-07-03 09:31] LABS: ALBUMIN 2.6 g/dl (3.4-5.0); ANION GAP 11 MMOL/L (8-16); BLOOD UREA NITROGEN 59.8 mg/dL (7-18); CO2 27 mmol/L (21-32); GLUCOSE,RANDOM 136 mg/dL (74-106)
[2022-07-03 09:33] LABS: SGOT/AST 17 U/L (15-37); SGPT/ALT 21 U/L (13-61)
[2022-07-03 09:35] LABS: BILIRUBIN,TOTAL 1.3 mg/dL (0.2-1); TOT PROT 6.3 g/dl (6.4-8.2)
[2022-07-03 09:37] LABS: ALK PHOS 84 U/L (45-117)
[2022-07-03 09:41] LABS: CREATININE 9.1 mg/dL (0.55-1.3)
[2022-07-03] MEDS: traZODone HCL 50 MG TABLET (FP) PO SCH (11:40)
[2022-07-03] MEDS: NIFEdipine E.R 60 MG TABLET PO SCH (11:42)
[2022-07-03] MEDS: LABETALOL HCL 100 MG TABLET (FP) PO SCH ×2 (11:42→21:52)
[2022-07-03] MEDS: SENNOSIDES 8.6MG TABLET (FP) PO SCH ×2 (11:42→21:52)
[2022-07-03] MEDS: DOCUSATE SODIUM 100 MG CAPSULE (FP) PO SCH (11:42)
[2022-07-03] MEDS: CLOPIDOGREL BISULFATE 75 MG TABLET (FP) PO SCH (11:42)
[2022-07-03] MEDS: LOSARTAN POTASSIUM 50 MG TABLET PO SCH (11:42)
[2022-07-03] MEDS: TORSEMIDE 100 MG TABLET PO SCH (11:43)
[2022-07-03] MEDS: MELATONIN 5 MG TABLETS PO SCH (21:52)
[2022-07-04] MEDS: HEPARIN NA (PORCINE) 5,000 UNITS/ML 1ML VIAL SQ SCH (06:33)
[2022-07-04] MEDS: INSULIN (LEVEMIR) 100 UNITS/ML UNITS SQ SCH (06:36)
[2022-07-04] MEDS: INSULIN SLIDING SCALE (NOVOLOG) 1 VIAL SQ SCH ×2 (06:37→11:16)
[2022-07-04 07:11] VITALS: BP 112/52; PULSE 64; TEMP 98.1
[2022-07-04 08:53] VITALS: RESP 16
[2022-07-04] MEDS: DOCUSATE SODIUM 100 MG CAPSULE (FP) PO SCH (09:47)
[2022-07-04] MEDS: LOSARTAN POTASSIUM 50 MG TABLET PO SCH (09:47)
[2022-07-04] MEDS: LABETALOL HCL 100 MG TABLET (FP) PO SCH (09:47)
[2022-07-04] MEDS: NIFEdipine E.R 60 MG TABLET PO SCH (09:48)
[2022-07-04] MEDS: CLOPIDOGREL BISULFATE 75 MG TABLET (FP) PO SCH (09:48)
[2022-07-04] MEDS: traZODone HCL 50 MG TABLET (FP) PO SCH (09:48)
[2022-07-04] MEDS: SENNOSIDES 8.6MG TABLET (FP) PO SCH (09:48)
[2022-07-04] MEDS: TORSEMIDE 100 MG TABLET PO SCH (09:52)
== END 2022-07-04 12:53 | disposition home or self-care (01) | DRG 417 ==
LOC: JER 13:14 → JERBED 21:11 → J5S 06-28 05:20
PROVIDERS: ADMIT Internal Medicine; ATTEND Internal Medicine
PROC: 0WQF0ZZ Repair Abdominal Wall, Open Approach (ICD-10-PCS; 2022-06-28)
PROC: 0FT44ZZ Resection of Gallbladder, Percutaneous Endoscopic Approach (ICD-10-PCS; principal; 2022-06-28 10:30)
PROC: 5A1D70Z Performance of Urinary Filtration, Intermittent, Less than 6 Hours Per Day (ICD-10-PCS; 2022-07-03)
DX: K80.00 Calculus of gallbladder with acute cholecystitis without obstruction (principal); N18.6 End stage renal disease; I50.32 Chronic diastolic (congestive) heart failure; I13.2 Hypertensive heart and chronic kidney disease with heart failure and with stage 5 chronic kidney disease, or end stage renal disease; K42.0 Umbilical hernia with obstruction, without gangrene; E11.51 Type 2 diabetes mellitus with diabetic peripheral angiopathy without gangrene; E11.22 Type 2 diabetes mellitus with diabetic chronic kidney disease; E11.65 Type 2 diabetes mellitus with hyperglycemia; I16.0 Hypertensive urgency; K21.9 Gastro-esophageal reflux disease without esophagitis; Z79.4 Long term (current) use of insulin; I25.10 Atherosclerotic heart disease of native coronary artery without angina pectoris; D63.1 Anemia in chronic kidney disease; Z95.5 Presence of coronary angioplasty implant and graft; N25.0 Renal osteodystrophy; Z99.2 Dependence on renal dialysis
CPT/HCPCS: 0241U-QW; 36415; 71045-TC-FY; 74176-TC; 76705-TC; 80053; 82010; 82803; 82962; 83690; 83735; 84100; 85025; 85027; 86803; 87070; 87186; 87205; 87340; 88302-TC; 88304-TC; 93005; 93010; 94010; 94760; 99285-25; J1644; Q5106

== ENCOUNTER 2022-07-20 13:09 | Inpatient (IN) | payer OTHER ==
[2022-07-20 13:54] VITALS: BMI 26.9
[2022-07-20 17:11] LABS: BASO % 0.9 % (0-2.0); EOS % 3.6 % (0-4.5); HEMATOCRIT 25.3 % (35.4-49); LYMPH % 15.7 % (8-40); MCH 30.3 pg (25.7-33.7); MCHC 31.7 g/dl (32.0-35.9); MEAN CELL VOLUME 95.5 fl (80-96); MEAN PLT VOLUME 7.4 fl (7.5-11.1); MONO % 6.7 % (3.8-10.2); NEUT % 73.1 % (42.8-82.8); PLATELET COUNT 223 10^3/uL (134-434); RBC 2.65 M/mm3 (4.00-5.60); RDW 15.4 % (11.9-15.9); WHITE BLOOD COUNT 4.6 K/mm3 (4.0-10.0)
[2022-07-20 17:30] LABS: CHLORIDE 107 mmol/L (98-107); SODIUM 139 mmol/L (136-145)
[2022-07-20 17:32] LABS: ALBUMIN 3.2 g/dl (3.4-5.0); ANION GAP 16 MMOL/L (8-16); BLOOD UREA NITROGEN 77.7 mg/dL (7-18); CALCIUM 8.2 mg/dL (8.5-10.1); CO2 16 mmol/L (21-32); GLUCOSE,RANDOM 319 mg/dL (74-106)
[2022-07-20 17:35] LABS: SGOT/AST 17 U/L (15-37); SGPT/ALT 25 U/L (13-61)
[2022-07-20 17:37] LABS: BILIRUBIN,TOTAL 0.5 mg/dL (0.2-1); TOT PROT 7.4 g/dl (6.4-8.2)
[2022-07-20 17:38] LABS: ALK PHOS 119 U/L (45-117)
[2022-07-20 17:41] LABS: CREATININE 10.7 mg/dL (0.55-1.3)
[2022-07-20] MEDS ORDERED: SODIUM CHLORIDE 250 ML IV PRN (19:54)
[2022-07-20] MEDS ORDERED: EPOETIN ALFA-EPBX 10,000 UNIT/ML VIAL SQ ONE (20:15)
[2022-07-20] MEDS: HEPARIN NA (PORCINE) 5,000 UNITS/ML 1ML VIAL SQ SCH (23:14)
[2022-07-21] MEDS ORDERED: HEPARIN NA (PORCINE) 5,000 UNITS/ML 1ML VIAL ONE ×3 (00:22→21:33)
[2022-07-21] MEDS: HEPARIN NA (PORCINE) 5,000 UNITS/ML 1ML VIAL SQ SCH ×3 (07:00→21:47)
[2022-07-21] MEDS: TAMSULOSIN HCL 0.4 MG CAP PO SCH (08:18)
[2022-07-21] MEDS ORDERED: LOSARTAN POTASSIUM 50 MG TABLET ONE (08:33)
[2022-07-21] MEDS ORDERED: NIFEdipine E.R 60 MG TABLET PO ONE (08:34)
[2022-07-21] MEDS ORDERED: CLOPIDOGREL BISULFATE 75 MG TABLET (FP) ONE (08:34)
[2022-07-21] MEDS ORDERED: TAMSULOSIN HCL 0.4 MG CAP ONE (08:34)
[2022-07-21] MEDS: LOSARTAN POTASSIUM 50 MG TABLET PO SCH (09:18)
[2022-07-21] MEDS: guaiFENesin 200 MG/10 ML 10 ML UNIT-DOSE CUPS PO PRN (09:18)
[2022-07-21] MEDS: NIFEdipine E.R 60 MG TABLET PO SCH (09:19)
[2022-07-21] MEDS: INSULIN (LEVEMIR) 100 UNITS/ML UNITS SQ SCH (09:19)
[2022-07-21] MEDS: CLOPIDOGREL BISULFATE 75 MG TABLET (FP) PO SCH (09:19)
[2022-07-21] MEDS ORDERED: guaiFENesin/CODEINE 10 ML UNIT-DOSE CUPS ONE (09:20)
[2022-07-21] MEDS ORDERED: TORSEMIDE 100 MG TABLET PO SCH (10:00)
[2022-07-21 10:05] LABS: BASO % 0.7 % (0-2.0); EOS % 4.1 % (0-4.5); HEMATOCRIT 24.4 % (35.4-49); HEMOGLOBIN 8.1 GM/dL (11.7-16.9); LYMPH % 20.5 % (8-40); MCH 31.1 pg (25.7-33.7); MCHC 33.3 g/dl (32.0-35.9); MEAN CELL VOLUME 93.4 fl (80-96); MEAN PLT VOLUME 7.2 fl (7.5-11.1); MONO % 10.3 % (3.8-10.2); NEUT % 64.4 % (42.8-82.8); PLATELET COUNT 223 10^3/uL (134-434); RBC 2.61 M/mm3 (4.00-5.60); RDW 15.1 % (11.9-15.9); WHITE BLOOD COUNT 4.2 K/mm3 (4.0-10.0)
[2022-07-21 10:16] LABS: INR 1.41 (0.83-1.09); PROTHROMBIN TIME (PATIENT) 16.3 SEC (9.7-13.0)
[2022-07-21 10:18] LABS: ACTIVATED PTT 30.9 SECONDS (25.2-36.5)
[2022-07-21 10:43] LABS: CALCIUM 7.9 mg/dL (8.5-10.1)
[2022-07-21 10:44] LABS: ALBUMIN 3.2 g/dl (3.4-5.0); MAGNESIUM 1.7 mg/dL (1.8-2.4)
[2022-07-21] MEDS: INSULIN SLIDING SCALE (NOVOLOG) 1 VIAL SQ SCH ×2 (10:45→17:45)
[2022-07-21 10:46] LABS: PHOSPHOROUS 2.8 mg/dL (2.5-4.9)
[2022-07-21 10:47] LABS: CREATININE 7.1 mg/dL (0.55-1.3); TOT PROT 7.5 g/dl (6.4-8.2)
[2022-07-21 10:48] LABS: BILIRUBIN,TOTAL 0.7 mg/dL (0.2-1)
[2022-07-21 10:56] LABS: BLOOD UREA NITROGEN 38.7 mg/dL (7-18)
[2022-07-22] MEDS ORDERED: HEPARIN NA (PORCINE) 5,000 UNITS/ML 1ML VIAL ONE (05:39)
[2022-07-22] MEDS: HEPARIN NA (PORCINE) 5,000 UNITS/ML 1ML VIAL SQ SCH ×3 (05:44→23:05)
[2022-07-22] MEDS ORDERED: LOSARTAN POTASSIUM 50 MG TABLET ONE (08:56)
[2022-07-22] MEDS ORDERED: NIFEdipine E.R 60 MG TABLET PO ONE (08:57)
[2022-07-22] MEDS ORDERED: CLOPIDOGREL BISULFATE 75 MG TABLET (FP) ONE (08:57)
[2022-07-22] MEDS: TAMSULOSIN HCL 0.4 MG CAP PO SCH (09:03)
[2022-07-22] MEDS: LOSARTAN POTASSIUM 50 MG TABLET PO SCH (09:03)
[2022-07-22] MEDS: INSULIN (LEVEMIR) 100 UNITS/ML UNITS SQ SCH (09:03)
[2022-07-22] MEDS: CLOPIDOGREL BISULFATE 75 MG TABLET (FP) PO SCH (09:03)
[2022-07-22] MEDS: NIFEdipine E.R 60 MG TABLET PO SCH (09:04)
[2022-07-22] MEDS: INSULIN SLIDING SCALE (NOVOLOG) 1 VIAL SQ SCH ×3 (09:04→17:12)
[2022-07-22] MEDS: TORSEMIDE 20 MG TABLET (FP) PO SCH (09:04)
[2022-07-22] MEDS ORDERED: TAMSULOSIN HCL 0.4 MG CAP ONE (09:05)
[2022-07-22] MEDS: guaiFENesin 200 MG/10 ML 10 ML UNIT-DOSE CUPS PO PRN (16:51)
[2022-07-22] MEDS ORDERED: guaiFENesin/CODEINE 10 ML UNIT-DOSE CUPS ONE (16:57)
[2022-07-22] MEDS ORDERED: guaiFENesin/D-METHORPHAN HB 10 ML UNIT-DOSE CUPS ONE (17:02)
[2022-07-22 19:33] VITALS: RESP 18
[2022-07-23] MEDS ORDERED: INSULIN (NOVOLOG) ASPART 100 UNITS/ML 10ML VIAL ONE ×2 (06:14→11:35)
[2022-07-23] MEDS: HEPARIN NA (PORCINE) 5,000 UNITS/ML 1ML VIAL SQ SCH ×3 (06:21→22:13)
[2022-07-23] MEDS: INSULIN (LEVEMIR) 100 UNITS/ML UNITS SQ SCH (06:23)
[2022-07-23] MEDS: INSULIN SLIDING SCALE (NOVOLOG) 1 VIAL SQ SCH ×3 (06:24→18:26)
[2022-07-23 08:52] LABS: BASO % 0.9 % (0-2.0); EOS % 3.8 % (0-4.5); HEMATOCRIT 24.1 % (35.4-49); HEMOGLOBIN 7.9 GM/dL (11.7-16.9); LYMPH % 26.3 % (8-40); MCH 30.8 pg (25.7-33.7); MCHC 32.6 g/dl (32.0-35.9); MEAN CELL VOLUME 94.3 fl (80-96); MEAN PLT VOLUME 7.7 fl (7.5-11.1); MONO % 8.7 % (3.8-10.2); NEUT % 60.3 % (42.8-82.8); PLATELET COUNT 216 10^3/uL (134-434); RBC 2.56 M/mm3 (4.00-5.60); RDW 14.9 % (11.9-15.9)
[2022-07-23] MEDS: TORSEMIDE 20 MG TABLET (FP) PO SCH (11:24)
[2022-07-23] MEDS: CLOPIDOGREL BISULFATE 75 MG TABLET (FP) PO SCH (11:24)
[2022-07-23] MEDS: TAMSULOSIN HCL 0.4 MG CAP PO SCH (11:24)
[2022-07-23] MEDS: LOSARTAN POTASSIUM 50 MG TABLET PO SCH (11:25)
[2022-07-23] MEDS: NIFEdipine E.R 60 MG TABLET PO SCH (11:25)
[2022-07-23] MEDS ORDERED: SODIUM CHLORIDE 250 ML IV PRN (14:03)
[2022-07-23] MEDS ORDERED: HEPARIN NA (PORCINE) 5,000 UNITS/ML 1ML VIAL IVPUSH ONE (15:00)
[2022-07-23] MEDS ORDERED: EPOETIN ALFA-EPBX 10,000 UNIT/ML VIAL IVPUSH ONE (15:00)
[2022-07-23 15:17] LABS: CHLORIDE 103 mmol/L (98-107); SODIUM 140 mmol/L (136-145)
[2022-07-23 15:18] LABS: CALCIUM 7.3 mg/dL (8.5-10.1); GLUCOSE,RANDOM 109 mg/dL (74-106)
[2022-07-23 15:19] LABS: ALBUMIN 3.1 g/dl (3.4-5.0); ANION GAP 13 MMOL/L (8-16); CO2 25 mmol/L (21-32)
[2022-07-23 15:21] LABS: SGPT/ALT 23 U/L (13-61)
[2022-07-23 15:22] LABS: IRON SERUM 52 ug/dL (50-175); SGOT/AST 17 U/L (15-37)
[2022-07-23 15:23] LABS: TOT PROT 7.2 g/dl (6.4-8.2); TOTAL IRON BINDING CAPACITY 328 ug/dL (250-450)
[2022-07-23 15:24] LABS: ALK PHOS 105 U/L (45-117)
[2022-07-23 15:34] LABS: BILIRUBIN,TOTAL 0.6 mg/dL (0.2-1); BLOOD UREA NITROGEN 66.9 mg/dL (7-18); CREATININE 10.5 mg/dL (0.55-1.3)
[2022-07-24] MEDS: INSULIN (LEVEMIR) 100 UNITS/ML UNITS SQ SCH (06:50)
[2022-07-24] MEDS: INSULIN SLIDING SCALE (NOVOLOG) 1 VIAL SQ SCH ×3 (06:50→17:31)
[2022-07-24] MEDS: HEPARIN NA (PORCINE) 5,000 UNITS/ML 1ML VIAL SQ SCH ×3 (06:50→23:07)
[2022-07-24 10:20] LABS: BASO % 1.1 % (0-2.0); EOS % 4.2 % (0-4.5); HEMATOCRIT 26.1 % (35.4-49); HEMOGLOBIN 8.3 GM/dL (11.7-16.9); LYMPH % 21.1 % (8-40); MCH 30.5 pg (25.7-33.7); MEAN CELL VOLUME 95.2 fl (80-96); MEAN PLT VOLUME 7.8 fl (7.5-11.1); MONO % 10.3 % (3.8-10.2); NEUT % 63.3 % (42.8-82.8); PLATELET COUNT 238 10^3/uL (134-434); RBC 2.74 M/mm3 (4.00-5.60); RDW 15.5 % (11.9-15.9); WHITE BLOOD COUNT 4.6 K/mm3 (4.0-10.0)
[2022-07-24] MEDS: TORSEMIDE 20 MG TABLET (FP) PO SCH (10:43)
[2022-07-24 10:44] LABS: CALCIUM 7.4 mg/dL (8.5-10.1)
[2022-07-24] MEDS: LOSARTAN POTASSIUM 50 MG TABLET PO SCH (10:44)
[2022-07-24] MEDS: NIFEdipine E.R 60 MG TABLET PO SCH (10:44)
[2022-07-24] MEDS: TAMSULOSIN HCL 0.4 MG CAP PO SCH (10:44)
[2022-07-24] MEDS: CLOPIDOGREL BISULFATE 75 MG TABLET (FP) PO SCH (10:45)
[2022-07-24 10:48] LABS: CREATININE 6.8 mg/dL (0.55-1.3)
[2022-07-24 10:50] LABS: BILIRUBIN,TOTAL 0.6 mg/dL (0.2-1); TOT PROT 7.2 g/dl (6.4-8.2)
[2022-07-24 10:52] LABS: BLOOD UREA NITROGEN 34.6 mg/dL (7-18)
[2022-07-24] MEDS ORDERED: SODIUM CHLORIDE 250 ML IV PRN (11:15)
[2022-07-25] MEDS: HEPARIN NA (PORCINE) 5,000 UNITS/ML 1ML VIAL SQ SCH ×3 (06:07→22:10)
[2022-07-25] MEDS: INSULIN (LEVEMIR) 100 UNITS/ML UNITS SQ SCH (06:08)
[2022-07-25] MEDS: INSULIN SLIDING SCALE (NOVOLOG) 1 VIAL SQ SCH ×4 (06:09→17:34)
[2022-07-25] MEDS ORDERED: ACETAMINOPHEN 325 MG TABLET (FP) PO ONE (06:43)
[2022-07-25] MEDS ORDERED: oxyCODONE HCL 5 MG TABLET PO ONE (07:43)
[2022-07-25] MEDS: TORSEMIDE 20 MG TABLET (FP) PO SCH ×2 (10:26→13:50)
[2022-07-25] MEDS: CLOPIDOGREL BISULFATE 75 MG TABLET (FP) PO SCH ×2 (10:26→13:50)
[2022-07-25] MEDS: LOSARTAN POTASSIUM 50 MG TABLET PO SCH ×2 (10:26→13:50)
[2022-07-25] MEDS: NIFEdipine E.R 60 MG TABLET PO SCH ×2 (10:26→13:50)
[2022-07-25] MEDS: TAMSULOSIN HCL 0.4 MG CAP PO SCH ×2 (10:26→13:52)
[2022-07-25 10:27] LABS: BASO % 0.9 % (0-2.0); EOS % 4.2 % (0-4.5); HEMATOCRIT 25.2 % (35.4-49); HEMOGLOBIN 7.9 GM/dL (11.7-16.9); MCH 29.8 pg (25.7-33.7); MCHC 31.3 g/dl (32.0-35.9); MEAN CELL VOLUME 95.1 fl (80-96); MEAN PLT VOLUME 7.5 fl (7.5-11.1); MONO % 8.9 % (3.8-10.2); PLATELET COUNT 222 10^3/uL (134-434); RBC 2.65 M/mm3 (4.00-5.60); RDW 15.3 % (11.9-15.9); WHITE BLOOD COUNT 4.8 K/mm3 (4.0-10.0)
[2022-07-25 10:45] LABS: CHLORIDE 102 mmol/L (98-107); SODIUM 140 mmol/L (136-145)
[2022-07-25 10:47] LABS: ALBUMIN 2.9 g/dl (3.4-5.0); ANION GAP 11 MMOL/L (8-16); CALCIUM 7.3 mg/dL (8.5-10.1); CO2 28 mmol/L (21-32); GLUCOSE,RANDOM 214 mg/dL (74-106)
[2022-07-25 10:48] LABS: BLOOD UREA NITROGEN 46.2 mg/dL (7-18)
[2022-07-25 10:50] LABS: PHOSPHOROUS 3.2 mg/dL (2.5-4.9); SGPT/ALT 20 U/L (13-61)
[2022-07-25 10:51] LABS: SGOT/AST 15 U/L (15-37)
[2022-07-25 10:52] LABS: BILIRUBIN,TOTAL 0.5 mg/dL (0.2-1); TOT PROT 6.8 g/dl (6.4-8.2)
[2022-07-25 10:53] LABS: ALK PHOS 104 U/L (45-117)
[2022-07-25 10:55] LABS: CREATININE 8.4 mg/dL (0.55-1.3)
[2022-07-25] MEDS ORDERED: EPOETIN ALFA-EPBX 10,000 UNIT/ML VIAL IVPUSH ONE (11:00)
[2022-07-25] MEDS: oxyCODONE HCL 5 MG TABLET PO PRN ×2 (13:59→22:16)
[2022-07-25] MEDS: guaiFENesin 200 MG/10 ML 10 ML UNIT-DOSE CUPS PO PRN (15:18)
[2022-07-25] MEDS ORDERED: INSULIN (NOVOLOG) ASPART 100 UNITS/ML 10ML VIAL ONE (17:32)
[2022-07-25] MEDS: MINERAL OIL/PET HY-PHL TOPICAL OINTMENT 454 GM JAR TP SCH (22:13)
[2022-07-26] MEDS: oxyCODONE HCL 5 MG TABLET PO PRN ×2 (05:14→10:29)
[2022-07-26] MEDS ORDERED: BENZOCAINE/MENTH/CETYLPYRD CL 1 EACH LOZENGE MM PRN (06:35)
[2022-07-26] MEDS: HEPARIN NA (PORCINE) 5,000 UNITS/ML 1ML VIAL SQ SCH ×2 (07:51→13:27)
[2022-07-26] MEDS: INSULIN (LEVEMIR) 100 UNITS/ML UNITS SQ SCH (07:52)
[2022-07-26] MEDS: INSULIN SLIDING SCALE (NOVOLOG) 1 VIAL SQ SCH ×2 (07:59→11:28)
[2022-07-26] MEDS: LOSARTAN POTASSIUM 50 MG TABLET PO SCH (09:52)
[2022-07-26] MEDS: CLOPIDOGREL BISULFATE 75 MG TABLET (FP) PO SCH (09:52)
[2022-07-26] MEDS: TORSEMIDE 20 MG TABLET (FP) PO SCH (09:52)
[2022-07-26] MEDS: NIFEdipine E.R 60 MG TABLET PO SCH (09:52)
[2022-07-26] MEDS: TAMSULOSIN HCL 0.4 MG CAP PO SCH (09:52)
[2022-07-26] MEDS ORDERED: MUPIROCIN 2% TOPICAL OINTMENT 22 GM TUBE TP SCH (10:00)
[2022-07-26 10:07] LABS: BASO % 1.2 % (0-2.0); EOS % 4.5 % (0-4.5); HEMATOCRIT 28.2 % (35.4-49); HEMOGLOBIN 8.9 GM/dL (11.7-16.9); LYMPH % 25.1 % (8-40); MCH 30.5 pg (25.7-33.7); MCHC 31.6 g/dl (32.0-35.9); MEAN CELL VOLUME 96.4 fl (80-96); MEAN PLT VOLUME 7.5 fl (7.5-11.1); MONO % 8.2 % (3.8-10.2); PLATELET COUNT 236 10^3/uL (134-434); RBC 2.93 M/mm3 (4.00-5.60); RDW 15.2 % (11.9-15.9); WHITE BLOOD COUNT 4.9 K/mm3 (4.0-10.0)
[2022-07-26 10:29] LABS: BLOOD UREA NITROGEN 28.5 mg/dL (7-18); CALCIUM 7.7 mg/dL (8.5-10.1); MAGNESIUM 1.8 mg/dL (1.8-2.4)
[2022-07-26 10:32] LABS: CREATININE 5.8 mg/dL (0.55-1.3)
[2022-07-26] MEDS: MINERAL OIL/PET HY-PHL TOPICAL OINTMENT 454 GM JAR TP SCH (10:32)
[2022-07-26 10:34] LABS: BILIRUBIN,TOTAL 0.6 mg/dL (0.2-1); TOT PROT 7.3 g/dl (6.4-8.2)
[2022-07-26 14:26] VITALS: BP 141/74; PULSE 81; TEMP 97.5
== END 2022-07-26 17:42 | disposition home or self-care (01) | DRG 186 ==
LOC: JER 13:09 → JERBED 18:21 → J8W 07-22 21:10 → OBSVTOIN 07-23 18:02
PROVIDERS: ADMIT Internal Medicine; ATTEND Nurse Practitioner Family
PROC: 5A1D70Z Performance of Urinary Filtration, Intermittent, Less than 6 Hours Per Day (ICD-10-PCS; principal; 2022-07-25)
DX: J90 Pleural effusion, not elsewhere classified (principal); N18.6 End stage renal disease; I13.2 Hypertensive heart and chronic kidney disease with heart failure and with stage 5 chronic kidney disease, or end stage renal disease; E11.621 Type 2 diabetes mellitus with foot ulcer; L97.529 Non-pressure chronic ulcer of other part of left foot with unspecified severity; E87.70 Fluid overload, unspecified; I50.9 Heart failure, unspecified; D63.1 Anemia in chronic kidney disease; I25.10 Atherosclerotic heart disease of native coronary artery without angina pectoris; Z95.5 Presence of coronary angioplasty implant and graft; N25.0 Renal osteodystrophy; E11.65 Type 2 diabetes mellitus with hyperglycemia; Z99.2 Dependence on renal dialysis
CPT/HCPCS: 0241U-QW; 36415; 71046-TC-FY; 71250-TC; 80053; 82728; 82962; 83036; 83540; 83550; 83735; 83880; 84100; 85025; 85610; 85730; 86803; 87340; 93005; 93010; 94010; 97116-GP; 97161-GP; 99285-25; G0378; J1644; Q5106

== ENCOUNTER 2022-08-17 12:50 | Inpatient (IN) | payer OTHER ==
[2022-08-17 14:31] LABS: HEMATOCRIT 32.6 % (35.4-49); HEMOGLOBIN 10.4 GM/dL (11.7-16.9); MCH 30.5 pg (25.7-33.7); MCHC 31.9 g/dl (32.0-35.9); MEAN CELL VOLUME 95.7 fl (80-96); MEAN PLT VOLUME 8.3 fl (7.5-11.1); PLATELET COUNT 187 10^3/uL (134-434); RBC 3.41 M/mm3 (4.00-5.60); RDW 15.7 % (11.9-15.9); WHITE BLOOD COUNT 5.3 K/mm3 (4.0-10.0)
[2022-08-17 14:52] LABS: CHLORIDE 102 mmol/L (98-107); SODIUM 134 mmol/L (136-145)
[2022-08-17 14:53] LABS: CALCIUM 8.1 mg/dL (8.5-10.1)
[2022-08-17 14:54] LABS: ALBUMIN 3.2 g/dl (3.4-5.0); ANION GAP 9 MMOL/L (8-16); BLOOD UREA NITROGEN 54.9 mg/dL (7-18); CO2 23 mmol/L (21-32); GLUCOSE,RANDOM 251 mg/dL (74-106)
[2022-08-17 14:57] LABS: SGOT/AST 22 U/L (15-37); SGPT/ALT 29 U/L (13-61)
[2022-08-17 14:59] LABS: BILIRUBIN,TOTAL 0.5 mg/dL (0.2-1); TOT PROT 7.5 g/dl (6.4-8.2)
[2022-08-17 15:00] LABS: ALK PHOS 94 U/L (45-117)
[2022-08-17 15:10] LABS: ANISOCYTOSIS 0; MACROCYTOSIS 1+
[2022-08-17 15:13] LABS: CREATININE 8.2 mg/dL (0.55-1.3)
[2022-08-17 15:18] LABS: N-TERMINAL BNP 88412.6 pg/ml (5-125)
[2022-08-17] MEDS ORDERED: SODIUM CHLORIDE 250 ML IV PRN (17:22)
[2022-08-17] MEDS ORDERED: REMDESIVIR 200 MG in SODIUM CHLORIDE 250 ML IVPB ONE (19:00)
[2022-08-17] MEDS: HEPARIN NA (PORCINE) 5,000 UNITS/ML 1ML VIAL SQ SCH (23:14)
[2022-08-17] MEDS: INSULIN (LEVEMIR) 100 UNITS/ML UNITS SQ SCH (23:14)
[2022-08-17] MEDS: LABETALOL HCL 100 MG TABLET (FP) PO SCH (23:15)
[2022-08-18] MEDS ORDERED: BENZOCAINE/MENTHOL 1 EACH LOZENGE MM PRN (02:23)
[2022-08-18 03:26] VITALS: BMI 28.9
[2022-08-18] MEDS: guaiFENesin/D-M SUGAR-FREE/ACLHOL-FREE 118 ML BOTTLE PO PRN (03:28)
[2022-08-18] MEDS: HEPARIN NA (PORCINE) 5,000 UNITS/ML 1ML VIAL SQ SCH ×3 (06:36→21:54)
[2022-08-18] MEDS: INSULIN SLIDING SCALE (NOVOLOG) 1 VIAL SQ SCH ×3 (07:52→17:21)
[2022-08-18 09:10] LABS: INR 1.51 (0.83-1.09); PROTHROMBIN TIME (PATIENT) 17.5 SEC (9.7-13.0)
[2022-08-18 09:12] LABS: ACTIVATED PTT 34.6 SECONDS (25.2-36.5)
[2022-08-18 09:19] LABS: HEMATOCRIT 30.3 % (35.4-49); HEMOGLOBIN 9.8 GM/dL (11.7-16.9); MCH 30.2 pg (25.7-33.7); MCHC 32.2 g/dl (32.0-35.9); MEAN CELL VOLUME 93.9 fl (80-96); MEAN PLT VOLUME 7.8 fl (7.5-11.1); PLATELET COUNT 179 10^3/uL (134-434); RBC 3.23 M/mm3 (4.00-5.60); RDW 15.6 % (11.9-15.9); WHITE BLOOD COUNT 4.2 K/mm3 (4.0-10.0)
[2022-08-18 09:28] LABS: CHLORIDE 101 mmol/L (98-107); SODIUM 138 mmol/L (136-145)
[2022-08-18 09:37] LABS: CALCIUM 7.5 mg/dL (8.5-10.1)
[2022-08-18 09:38] LABS: ALBUMIN 2.8 g/dl (3.4-5.0); ANION GAP 7 MMOL/L (8-16); BLOOD UREA NITROGEN 36.4 mg/dL (7-18); CO2 30 mmol/L (21-32); GLUCOSE,RANDOM 92 mg/dL (74-106); MAGNESIUM 1.7 mg/dL (1.8-2.4)
[2022-08-18 09:40] LABS: PHOSPHOROUS 3.2 mg/dL (2.5-4.9)
[2022-08-18 09:41] LABS: SGOT/AST 22 U/L (15-37); SGPT/ALT 29 U/L (13-61)
[2022-08-18 09:42] LABS: ALK PHOS 86 U/L (45-117); BILIRUBIN,TOTAL 0.6 mg/dL (0.2-1); TOT PROT 6.9 g/dl (6.4-8.2)
[2022-08-18 09:50] LABS: ANISOCYTOSIS 2+; MACROCYTOSIS 1+
[2022-08-18] MEDS ORDERED: REMDESIVIR 100 MG in SODIUM CHLORIDE 250 ML IVPB SCH (10:00)
[2022-08-18] MEDS ORDERED: DEXAMETHASONE SOD PHOSPHATE 10 MG/1 ML VIAL IVPUSH SCH (10:00)
[2022-08-18 10:09] LABS: N-TERMINAL BNP 96865.1 pg/ml (5-125)
[2022-08-18] MEDS: NIFEdipine E.R. 90 MG TABLET PO SCH (10:54)
[2022-08-18] MEDS: LABETALOL HCL 100 MG TABLET (FP) PO SCH ×2 (10:54→21:55)
[2022-08-18] MEDS: CLOPIDOGREL BISULFATE 75 MG TABLET (FP) PO SCH (10:54)
[2022-08-18] MEDS: TORSEMIDE 100 MG TABLET PO SCH (12:02)
[2022-08-18] MEDS ORDERED: SODIUM CHLORIDE 250 ML IV PRN (16:34)
[2022-08-18] MEDS: DOCUSATE SODIUM 100 MG CAPSULE (FP) PO SCH (18:22)
[2022-08-18] MEDS: traZODone HCL 50 MG TABLET (FP) PO SCH (21:54)
[2022-08-18] MEDS: INSULIN (LEVEMIR) 100 UNITS/ML UNITS SQ SCH (21:54)
[2022-08-19] MEDS: HEPARIN NA (PORCINE) 5,000 UNITS/ML 1ML VIAL SQ SCH ×3 (06:28→22:06)
[2022-08-19] MEDS: INSULIN SLIDING SCALE (NOVOLOG) 1 VIAL SQ SCH ×3 (06:38→17:27)
[2022-08-19] MEDS: guaiFENesin/D-M SUGAR-FREE/ACLHOL-FREE 118 ML BOTTLE PO PRN (06:39)
[2022-08-19 08:52] LABS: BASO % 0.7 % (0-2.0); EOS % 0.2 % (0-4.5); HEMATOCRIT 31.8 % (35.4-49); HEMOGLOBIN 10.3 GM/dL (11.7-16.9); LYMPH % 27.2 % (8-40); MCH 30.3 pg (25.7-33.7); MCHC 32.4 g/dl (32.0-35.9); MEAN CELL VOLUME 93.5 fl (80-96); MEAN PLT VOLUME 8.2 fl (7.5-11.1); MONO % 13.9 % (3.8-10.2); PLATELET COUNT 198 10^3/uL (134-434); RDW 15.2 % (11.9-15.9)
[2022-08-19 09:16] LABS: CHLORIDE 100 mmol/L (98-107); SODIUM 135 mmol/L (136-145)
[2022-08-19] MEDS: TAMSULOSIN HCL 0.4 MG CAP PO SCH (09:42)
[2022-08-19] MEDS: LABETALOL HCL 100 MG TABLET (FP) PO SCH ×2 (09:43→22:07)
[2022-08-19] MEDS: NIFEdipine E.R. 90 MG TABLET PO SCH (09:43)
[2022-08-19] MEDS: CLOPIDOGREL BISULFATE 75 MG TABLET (FP) PO SCH (09:43)
[2022-08-19 09:44] LABS: BLOOD UREA NITROGEN 54.4 mg/dL (7-18); GLUCOSE,RANDOM 277 mg/dL (74-106)
[2022-08-19] MEDS: DOCUSATE SODIUM 100 MG CAPSULE (FP) PO SCH (09:44)
[2022-08-19 09:46] LABS: ANION GAP 12 MMOL/L (8-16); CO2 23 mmol/L (21-32); MAGNESIUM 2.1 mg/dL (1.8-2.4)
[2022-08-19 09:47] LABS: CALCIUM 7.7 mg/dL (8.5-10.1); SGOT/AST 20 U/L (15-37)
[2022-08-19 09:49] LABS: BILIRUBIN,TOTAL 0.6 mg/dL (0.2-1)
[2022-08-19 09:50] LABS: ALK PHOS 96 U/L (45-117); SGPT/ALT 30 U/L (13-61)
[2022-08-19] MEDS: TORSEMIDE 100 MG TABLET PO SCH (09:50)
[2022-08-19 09:51] LABS: TOT PROT 7.3 g/dl (6.4-8.2)
[2022-08-19 09:58] LABS: CREATININE 8.2 mg/dL (0.55-1.3)
[2022-08-19] MEDS ORDERED: CLOPIDOGREL BISULFATE 75 MG TABLET (FP) PO SCH (10:00)
[2022-08-19] MEDS ORDERED: guaiFENesin/CODEINE 10 ML UNIT-DOSE CUPS PO ONE (10:05)
[2022-08-19] MEDS ORDERED: guaiFENesin/CODEINE 5 ML UNIT-DOSE CUPS PO PRN (10:05)
[2022-08-19] MEDS: traZODone HCL 50 MG TABLET (FP) PO SCH (22:06)
[2022-08-19] MEDS: INSULIN (LEVEMIR) 100 UNITS/ML UNITS SQ SCH (22:15)
[2022-08-19] MEDS ORDERED: SODIUM CHLORIDE 250 ML IV PRN (22:58)
[2022-08-20] MEDS ORDERED: ACETAMINOPHEN 325 MG TABLET (FP) PO PRN (04:12)
[2022-08-20] MEDS: HEPARIN NA (PORCINE) 5,000 UNITS/ML 1ML VIAL SQ SCH ×3 (05:58→21:47)
[2022-08-20] MEDS: INSULIN SLIDING SCALE (NOVOLOG) 1 VIAL SQ SCH ×3 (06:04→17:04)
[2022-08-20] MEDS: TAMSULOSIN HCL 0.4 MG CAP PO SCH ×2 (09:22→15:54)
[2022-08-20] MEDS: TORSEMIDE 100 MG TABLET PO SCH ×2 (09:22→15:58)
[2022-08-20] MEDS: CLOPIDOGREL BISULFATE 75 MG TABLET (FP) PO SCH ×2 (09:22→15:52)
[2022-08-20] MEDS: DOCUSATE SODIUM 100 MG CAPSULE (FP) PO SCH ×2 (09:22→15:53)
[2022-08-20] MEDS: NIFEdipine E.R. 90 MG TABLET PO SCH ×2 (09:22→15:52)
[2022-08-20] MEDS: LABETALOL HCL 100 MG TABLET (FP) PO SCH ×3 (09:22→21:47)
[2022-08-20 09:24] LABS: BASO % 0.9 % (0-2.0); EOS % 2.7 % (0-4.5); HEMATOCRIT 30.9 % (35.4-49); HEMOGLOBIN 10.1 GM/dL (11.7-16.9); LYMPH % 33.8 % (8-40); MCH 30.9 pg (25.7-33.7); MCHC 32.8 g/dl (32.0-35.9); MEAN CELL VOLUME 94.1 fl (80-96); MEAN PLT VOLUME 7.9 fl (7.5-11.1); MONO % 11.7 % (3.8-10.2); NEUT % 50.9 % (42.8-82.8); PLATELET COUNT 182 10^3/uL (134-434); RBC 3.28 M/mm3 (4.00-5.60); RDW 15.5 % (11.9-15.9); WHITE BLOOD COUNT 3.4 K/mm3 (4.0-10.0)
[2022-08-20 09:41] LABS: CHLORIDE 101 mmol/L (98-107); SODIUM 137 mmol/L (136-145)
[2022-08-20 09:49] LABS: ANION GAP 13 MMOL/L (8-16); CALCIUM 7.3 mg/dL (8.5-10.1); CO2 23 mmol/L (21-32); GLUCOSE,RANDOM 89 mg/dL (74-106)
[2022-08-20 09:51] LABS: ALBUMIN 2.9 g/dl (3.4-5.0); BLOOD UREA NITROGEN 71.2 mg/dL (7-18)
[2022-08-20 09:53] LABS: SGPT/ALT 32 U/L (13-61)
[2022-08-20 09:54] LABS: BILIRUBIN,TOTAL 0.5 mg/dL (0.2-1); SGOT/AST 25 U/L (15-37)
[2022-08-20 09:56] LABS: ALK PHOS 83 U/L (45-117)
[2022-08-20 10:01] LABS: HEMATOCRIT 29.7 % (35.4-49); HEMOGLOBIN 9.7 GM/dL (11.7-16.9); MCH 30.6 pg (25.7-33.7); MCHC 32.8 g/dl (32.0-35.9); MEAN CELL VOLUME 93.4 fl (80-96); MEAN PLT VOLUME 7.6 fl (7.5-11.1); PLATELET COUNT 176 10^3/uL (134-434); RBC 3.18 M/mm3 (4.00-5.60); RDW 15.5 % (11.9-15.9); WHITE BLOOD COUNT 3.3 K/mm3 (4.0-10.0)
[2022-08-20 10:17] LABS: CREATININE 9.4 mg/dL (0.55-1.3)
[2022-08-20 10:28] LABS: CHLORIDE 101 mmol/L (98-107); SODIUM 135 mmol/L (136-145)
[2022-08-20 10:39] LABS: ANION GAP 12 MMOL/L (8-16); BLOOD UREA NITROGEN 70.9 mg/dL (7-18); CALCIUM 7.1 mg/dL (8.5-10.1); CO2 21 mmol/L (21-32); GLUCOSE,RANDOM 120 mg/dL (74-106)
[2022-08-20 10:43] LABS: CREATININE 9.5 mg/dL (0.55-1.3)
[2022-08-20 15:36] VITALS: RESP 20
[2022-08-20] MEDS: traZODone HCL 50 MG TABLET (FP) PO SCH (21:47)
[2022-08-20] MEDS: INSULIN (LEVEMIR) 100 UNITS/ML UNITS SQ SCH (21:53)
[2022-08-21] MEDS: HEPARIN NA (PORCINE) 5,000 UNITS/ML 1ML VIAL SQ SCH (06:17)
[2022-08-21] MEDS: INSULIN SLIDING SCALE (NOVOLOG) 1 VIAL SQ SCH ×2 (06:23→11:15)
[2022-08-21 07:46] VITALS: BP 126/65; PULSE 79; TEMP 98.4
[2022-08-21] MEDS: TAMSULOSIN HCL 0.4 MG CAP PO SCH (09:20)
[2022-08-21] MEDS: LABETALOL HCL 100 MG TABLET (FP) PO SCH (09:20)
[2022-08-21] MEDS: CLOPIDOGREL BISULFATE 75 MG TABLET (FP) PO SCH (09:20)
[2022-08-21] MEDS: TORSEMIDE 100 MG TABLET PO SCH (09:20)
[2022-08-21] MEDS: NIFEdipine E.R. 90 MG TABLET PO SCH (09:20)
[2022-08-21] MEDS: DOCUSATE SODIUM 100 MG CAPSULE (FP) PO SCH (09:20)
[2022-08-21 09:45] LABS: BASO % 1.2 % (0-2.0); EOS % 3.3 % (0-4.5); HEMATOCRIT 33.3 % (35.4-49); HEMOGLOBIN 10.6 GM/dL (11.7-16.9); LYMPH % 37.5 % (8-40); MCH 29.6 pg (25.7-33.7); MCHC 31.9 g/dl (32.0-35.9); MEAN PLT VOLUME 7.7 fl (7.5-11.1); MONO % 11.8 % (3.8-10.2); NEUT % 46.2 % (42.8-82.8); PLATELET COUNT 208 10^3/uL (134-434); RBC 3.58 M/mm3 (4.00-5.60); RDW 15.5 % (11.9-15.9)
[2022-08-21 11:22] LABS: CALCIUM 7.4 mg/dL (8.5-10.1)
[2022-08-21 11:26] LABS: CREATININE 6.6 mg/dL (0.55-1.3)
[2022-08-21 11:27] LABS: BILIRUBIN,TOTAL 0.6 mg/dL (0.2-1); TOT PROT 7.3 g/dl (6.4-8.2)
[2022-08-21 12:08] LABS: BLOOD UREA NITROGEN 41.1 mg/dL (7-18)
== END 2022-08-21 11:56 | disposition home or self-care (01) | DRG 177 ==
LOC: JER 12:50 → JERBED 17:18 → OBSVTOIN 17:58 → J8W 21:51
PROVIDERS: ADMIT Internal Medicine; ATTEND Nurse Practitioner Family
PROC: XW033E5 Introduction of Remdesivir Anti-infective into Peripheral Vein, Percutaneous Approach, New Technology Group 5 (ICD-10-PCS; principal; 2022-08-17)
PROC: 5A1D70Z Performance of Urinary Filtration, Intermittent, Less than 6 Hours Per Day (ICD-10-PCS; 2022-08-20)
DX: U07.1 COVID-19 (principal); J12.82 Pneumonia due to coronavirus disease 2019; N18.6 End stage renal disease; I50.32 Chronic diastolic (congestive) heart failure; J90 Pleural effusion, not elsewhere classified; L97.909 Non-pressure chronic ulcer of unspecified part of unspecified lower leg with unspecified severity; I12.0 Hypertensive chronic kidney disease with stage 5 chronic kidney disease or end stage renal disease; M86.8X7 Other osteomyelitis, ankle and foot; R09.02 Hypoxemia; E11.22 Type 2 diabetes mellitus with diabetic chronic kidney disease; I25.10 Atherosclerotic heart disease of native coronary artery without angina pectoris; Z95.5 Presence of coronary angioplasty implant and graft; E87.70 Fluid overload, unspecified; E11.65 Type 2 diabetes mellitus with hyperglycemia; Z99.2 Dependence on renal dialysis; E11.621 Type 2 diabetes mellitus with foot ulcer
CPT/HCPCS: 0241U-QW; 36415; 71045-TC-FY; 80048; 80053; 82962; 83735; 83880; 84100; 84484; 85025; 85027; 85379; 85610; 85730; 86140; 86803; 87340; 93005; 93010; 99285-25; C9399; C9803-CS; G0378; J1100; J1644; U0003; U0005

== ENCOUNTER 2022-10-11 10:09 | Inpatient (IN) | payer OTHER ==
[2022-10-11 12:13] LABS: VENOUS O2 SATURATION 65.7 % (70-80); VENOUS PCO2 49.9 mmHg (38-52); VENOUS PH 7.282 (7.310-7.410)
[2022-10-11 12:14] LABS: BASO % 0.8 % (0-2.0); EOS % 3.2 % (0-4.5); HEMATOCRIT 38.8 % (35.4-49); HEMOGLOBIN 12.4 GM/dL (11.7-16.9); LYMPH % 15.3 % (8-40); MCH 29.8 pg (25.7-33.7); MEAN CELL VOLUME 93.2 fl (80-96); MEAN PLT VOLUME 8.1 fl (7.5-11.1); MONO % 9.6 % (3.8-10.2); NEUT % 71.1 % (42.8-82.8); PLATELET COUNT 178 10^3/uL (134-434); RBC 4.16 M/mm3 (4.00-5.60); RDW 15.8 % (11.9-15.9); WHITE BLOOD COUNT 5.3 K/mm3 (4.0-10.0)
[2022-10-11 12:37] LABS: CHLORIDE 96 mmol/L (98-107); SODIUM 131 mmol/L (136-145)
[2022-10-11 12:40] LABS: ALBUMIN 3.2 g/dl (3.4-5.0); ANION GAP 9 MMOL/L (8-16); BLOOD UREA NITROGEN 55.4 mg/dL (7-18); CALCIUM 8.4 mg/dL (8.5-10.1); CO2 26 mmol/L (21-32)
[2022-10-11 12:43] LABS: SGOT/AST 6 U/L (15-37); SGPT/ALT 23 U/L (13-61)
[2022-10-11 12:45] LABS: BILIRUBIN,TOTAL 0.6 mg/dL (0.2-1); TOT PROT 7.6 g/dl (6.4-8.2)
[2022-10-11 12:46] LABS: ALK PHOS 122 U/L (45-117)
[2022-10-11 12:48] LABS: CREATININE 8.7 mg/dL (0.55-1.3); GLUCOSE,RANDOM 618 mg/dL (74-106)
[2022-10-11] MEDS ORDERED: CALCIUM GLUCONATE 10% - 1,000 MG/10 ML VIAL IVPUSH ONE (13:08)
[2022-10-11] MEDS ORDERED: INSULIN REGULAR HUMAN 100 UNITS/ML *VIAL IVPUSH ONE (13:08)
[2022-10-11] MEDS ORDERED: LACTATED RINGERS SOLUTION 1000 ML INFUS.BAG IV ONE (13:08)
[2022-10-11] MEDS ORDERED: SODIUM ZIRCONIUM CYCLOSILICATE (LOKELMA) 5 GM PACKET ONE (13:20)
[2022-10-11] MEDS ORDERED: CALCIUM GLUC IN NACL, ISO-OSM 1 GM/50 ML BAG IVPB ONE (13:20)
[2022-10-11] MEDS: SODIUM ZIRCONIUM CYCLOSILICATE (LOKELMA) 5 GM PACKET PO SCH ×2 (13:29→13:55)
[2022-10-11] MEDS ORDERED: INSULIN (LEVEMIR) 100 UNITS/ML UNITS SQ ONE (16:17)
[2022-10-11] MEDS: INSULIN SLIDING SCALE (NOVOLOG) 1 VIAL SQ SCH ×2 (17:02→22:54)
[2022-10-11] MEDS ORDERED: LOSARTAN POTASSIUM 50 MG TABLET ONE (17:05)
[2022-10-11] MEDS: LOSARTAN POTASSIUM 50 MG TABLET PO SCH (17:13)
[2022-10-11] MEDS ORDERED: traZODone HCL 50 MG TABLET (FP) PO SCH (22:00)
[2022-10-11] MEDS ORDERED: LABETALOL HCL 100 MG TABLET (FP) ONE (22:50)
[2022-10-11] MEDS ORDERED: HEPARIN NA (PORCINE) 5,000 UNITS/ML 1ML VIAL ONE (22:50)
[2022-10-11] MEDS: LABETALOL HCL 100 MG TABLET (FP) PO SCH (22:54)
[2022-10-11] MEDS: HEPARIN NA (PORCINE) 5,000 UNITS/ML 1ML VIAL SQ SCH (22:54)
[2022-10-12] MEDS: HEPARIN NA (PORCINE) 5,000 UNITS/ML 1ML VIAL SQ SCH ×3 (06:37→22:45)
[2022-10-12 06:51] LABS: BASO % 0.8 % (0-2.0); EOS % 3.9 % (0-4.5); HEMATOCRIT 39.2 % (35.4-49); LYMPH % 23.3 % (8-40); MCH 30.2 pg (25.7-33.7); MEAN CELL VOLUME 91.5 fl (80-96); MEAN PLT VOLUME 7.8 fl (7.5-11.1); MONO % 7.9 % (3.8-10.2); NEUT % 64.1 % (42.8-82.8); PLATELET COUNT 193 10^3/uL (134-434); RBC 4.29 M/mm3 (4.00-5.60); RDW 15.6 % (11.9-15.9); WHITE BLOOD COUNT 5.3 K/mm3 (4.0-10.0)
[2022-10-12] MEDS ORDERED: INSULIN (LEVEMIR) 100 UNITS/ML UNITS SQ SCH (07:00)
[2022-10-12 07:11] LABS: CHLORIDE 101 mmol/L (98-107); SODIUM 135 mmol/L (136-145)
[2022-10-12 07:13] LABS: CALCIUM 8.5 mg/dL (8.5-10.1)
[2022-10-12 07:14] LABS: ALBUMIN 3.1 g/dl (3.4-5.0); ANION GAP 10 MMOL/L (8-16); BLOOD UREA NITROGEN 62.1 mg/dL (7-18); CO2 24 mmol/L (21-32); GLUCOSE,RANDOM 144 mg/dL (74-106)
[2022-10-12 07:16] LABS: SGPT/ALT 22 U/L (13-61)
[2022-10-12 07:17] LABS: PHOSPHOROUS 4.8 mg/dL (2.5-4.9); SGOT/AST 7 U/L (15-37)
[2022-10-12 07:18] LABS: BILIRUBIN,TOTAL 0.7 mg/dL (0.2-1); TOT PROT 7.3 g/dl (6.4-8.2)
[2022-10-12 07:20] LABS: ALK PHOS 100 U/L (45-117)
[2022-10-12 07:26] LABS: CREATININE 9.5 mg/dL (0.55-1.3)
[2022-10-12] MEDS ORDERED: TAMSULOSIN HCL 0.4 MG CAP PO SCH (08:30)
[2022-10-12] MEDS ORDERED: NIFEdipine E.R 60 MG TABLET PO ONE (08:49)
[2022-10-12] MEDS ORDERED: NIFEdipine E.R. 30 MG TABLET PO ONE (08:49)
[2022-10-12] MEDS ORDERED: SODIUM ZIRCONIUM CYCLOSILICATE (LOKELMA) 5 GM PACKET ONE (08:49)
[2022-10-12] MEDS ORDERED: CLOPIDOGREL BISULFATE 75 MG TABLET (FP) ONE (08:49)
[2022-10-12] MEDS ORDERED: LOSARTAN POTASSIUM 50 MG TABLET ONE (08:49)
[2022-10-12] MEDS ORDERED: TAMSULOSIN HCL 0.4 MG CAP ONE (08:49)
[2022-10-12] MEDS ORDERED: LABETALOL HCL 100 MG TABLET (FP) ONE (08:49)
[2022-10-12] MEDS: INSULIN SLIDING SCALE (NOVOLOG) 1 VIAL SQ SCH ×5 (09:00→23:45)
[2022-10-12] MEDS: SODIUM ZIRCONIUM CYCLOSILICATE (LOKELMA) 5 GM PACKET PO SCH (09:01)
[2022-10-12] MEDS: LABETALOL HCL 100 MG TABLET (FP) PO SCH ×2 (09:01→22:45)
[2022-10-12] MEDS: LOSARTAN POTASSIUM 50 MG TABLET PO SCH (09:01)
[2022-10-12] MEDS ORDERED: TORSEMIDE 100 MG TABLET PO SCH (10:00)
[2022-10-12] MEDS ORDERED: NIFEdipine E.R. 90 MG TABLET PO SCH (10:00)
[2022-10-12] MEDS ORDERED: CLOPIDOGREL BISULFATE 75 MG TABLET (FP) PO SCH (10:00)
[2022-10-12] MEDS ORDERED: SODIUM CHLORIDE 250 ML IV PRN (10:53)
[2022-10-12] MEDS ORDERED: HEPARIN NA (PORCINE) 5,000 UNITS/ML 1ML VIAL IVPUSH ONE (14:30)
[2022-10-12 16:04] VITALS: BMI 27.6
[2022-10-12] MEDS ORDERED: INSULIN SLIDING SCALE (NOVOLOG) 1 VIAL SQ SCH (22:00)
[2022-10-12] MEDS: traZODone HCL 50 MG TABLET (FP) PO SCH (22:45)
[2022-10-13] MEDS: HEPARIN NA (PORCINE) 5,000 UNITS/ML 1ML VIAL SQ SCH ×3 (06:44→21:54)
[2022-10-13] MEDS: INSULIN (LEVEMIR) 100 UNITS/ML UNITS SQ SCH (07:00)
[2022-10-13] MEDS: INSULIN SLIDING SCALE (NOVOLOG) 1 VIAL SQ SCH ×4 (07:16→21:57)
[2022-10-13] MEDS: LOSARTAN POTASSIUM 50 MG TABLET PO SCH (09:34)
[2022-10-13] MEDS: TAMSULOSIN HCL 0.4 MG CAP PO SCH (09:34)
[2022-10-13] MEDS: NIFEdipine E.R. 90 MG TABLET PO SCH (09:34)
[2022-10-13] MEDS: LABETALOL HCL 100 MG TABLET (FP) PO SCH ×2 (09:35→21:56)
[2022-10-13] MEDS: TORSEMIDE 100 MG TABLET PO SCH (09:35)
[2022-10-13] MEDS: CLOPIDOGREL BISULFATE 75 MG TABLET (FP) PO SCH (09:35)
[2022-10-13] MEDS: SODIUM ZIRCONIUM CYCLOSILICATE (LOKELMA) 5 GM PACKET PO SCH (11:17)
[2022-10-13] MEDS ORDERED: HEPARIN NA (PORCINE) 5,000 UNITS/ML 1ML VIAL IVPUSH ONE (14:00)
[2022-10-13] MEDS ORDERED: SODIUM CHLORIDE 250 ML IV PRN (14:00)
[2022-10-13] MEDS ORDERED: INSULIN (NOVOLOG) ASPART 100 UNITS/ML 10ML VIAL ONE (21:53)
[2022-10-13] MEDS: traZODone HCL 50 MG TABLET (FP) PO SCH (21:56)
[2022-10-14] MEDS: INSULIN (LEVEMIR) 100 UNITS/ML UNITS SQ SCH (07:04)
[2022-10-14] MEDS: INSULIN SLIDING SCALE (NOVOLOG) 1 VIAL SQ SCH ×3 (07:06→17:49)
[2022-10-14] MEDS: HEPARIN NA (PORCINE) 5,000 UNITS/ML 1ML VIAL SQ SCH ×2 (07:07→13:51)
[2022-10-14 09:17] VITALS: RESP 18
[2022-10-14] MEDS ORDERED: HEPARIN NA (PORCINE) 5,000 UNITS/ML 1ML VIAL IVPUSH ONE (10:00)
[2022-10-14] MEDS: LABETALOL HCL 100 MG TABLET (FP) PO SCH (13:52)
[2022-10-14] MEDS: LOSARTAN POTASSIUM 50 MG TABLET PO SCH (13:52)
[2022-10-14] MEDS: TAMSULOSIN HCL 0.4 MG CAP PO SCH (13:52)
[2022-10-14] MEDS: SODIUM ZIRCONIUM CYCLOSILICATE (LOKELMA) 5 GM PACKET PO SCH (13:53)
[2022-10-14] MEDS: NIFEdipine E.R. 90 MG TABLET PO SCH (13:53)
[2022-10-14] MEDS: TORSEMIDE 100 MG TABLET PO SCH (13:53)
[2022-10-14] MEDS: CLOPIDOGREL BISULFATE 75 MG TABLET (FP) PO SCH (13:53)
[2022-10-14 15:27] VITALS: BP 156/87; PULSE 90; TEMP 98.5
== END 2022-10-14 17:32 | disposition home health service (06) | DRG 291 ==
LOC: JER 10:09 → JERBED 15:00 → J8W 10-12 14:36
PROVIDERS: ADMIT Internal Medicine; ATTEND Nurse Practitioner Acute Care
PROC: 5A1D70Z Performance of Urinary Filtration, Intermittent, Less than 6 Hours Per Day (ICD-10-PCS; principal; 2022-10-14)
DX: I13.2 Hypertensive heart and chronic kidney disease with heart failure and with stage 5 chronic kidney disease, or end stage renal disease (principal); N18.6 End stage renal disease; L97.909 Non-pressure chronic ulcer of unspecified part of unspecified lower leg with unspecified severity; I50.32 Chronic diastolic (congestive) heart failure; E11.621 Type 2 diabetes mellitus with foot ulcer; E11.51 Type 2 diabetes mellitus with diabetic peripheral angiopathy without gangrene; E11.22 Type 2 diabetes mellitus with diabetic chronic kidney disease; E78.5 Hyperlipidemia, unspecified; I25.10 Atherosclerotic heart disease of native coronary artery without angina pectoris; R05.3 Chronic cough; E87.70 Fluid overload, unspecified; E87.5 Hyperkalemia; E11.65 Type 2 diabetes mellitus with hyperglycemia; Z95.5 Presence of coronary angioplasty implant and graft; Z99.2 Dependence on renal dialysis
CPT/HCPCS: 0241U-QW; 36415; 71045-TC-FY; 80053; 82010; 82803; 82962; 83605; 83735; 84100; 85025; 86803; 87340; 93005; 93010; 99285-25; J1644

== ENCOUNTER 2022-11-02 13:13 | Observation (INO) | payer OTHER ==
[2022-11-02 13:21] VITALS: BMI 25.0
[2022-11-02 14:19] LABS: BASO % 0.9 % (0-2.0); EOS % 3.2 % (0-4.5); HEMATOCRIT 36.1 % (35.4-49); HEMOGLOBIN 11.4 GM/dL (11.7-16.9); LYMPH % 14.5 % (8-40); MCH 29.3 pg (25.7-33.7); MCHC 31.6 g/dl (32.0-35.9); MEAN CELL VOLUME 92.9 fl (80-96); MEAN PLT VOLUME 8.6 fl (7.5-11.1); MONO % 9.1 % (3.8-10.2); NEUT % 72.3 % (42.8-82.8); PLATELET COUNT 184 10^3/uL (134-434); RBC 3.88 M/mm3 (4.00-5.60); RDW 15.6 % (11.9-15.9); WHITE BLOOD COUNT 4.5 K/mm3 (4.0-10.0)
[2022-11-02 14:49] LABS: CHLORIDE 95 mmol/L (98-107); POTASSIUM 5.1 mmol/L (3.5-5.1); SODIUM 127 mmol/L (136-145)
[2022-11-02 14:51] LABS: ALBUMIN 3.2 g/dl (3.4-5.0); CALCIUM 8.2 mg/dL (8.5-10.1)
[2022-11-02 14:52] LABS: ANION GAP 7 MMOL/L (8-16); BLOOD UREA NITROGEN 45.3 mg/dL (7-18); CO2 25 mmol/L (21-32); MAGNESIUM 1.8 mg/dL (1.8-2.4)
[2022-11-02 14:55] LABS: CREATININE 7.2 mg/dL (0.55-1.3); PHOSPHOROUS 3.6 mg/dL (2.5-4.9); SGOT/AST 13 U/L (15-37); SGPT/ALT 23 U/L (13-61)
[2022-11-02 14:57] LABS: BILIRUBIN,TOTAL 0.5 mg/dL (0.2-1); TOT PROT 7.8 g/dl (6.4-8.2)
[2022-11-02 14:58] LABS: ALK PHOS 110 U/L (45-117); GLUCOSE,RANDOM 647 mg/dL (74-106)
[2022-11-02] MEDS ORDERED: INSULIN REGULAR HUMAN 100 UNITS/ML *VIAL SQ ONE (15:10)
[2022-11-02] MEDS ORDERED: SODIUM CHLORIDE 250 ML IV PRN (17:45)
[2022-11-02] MEDS ORDERED: HEPARIN NA (PORCINE) 5,000 UNITS/ML 1ML VIAL IVPUSH ONE (17:45)
[2022-11-02] MEDS: INSULIN SLIDING SCALE (NOVOLOG) 1 VIAL SQ SCH ×2 (17:59→21:45)
[2022-11-02] MEDS: traZODone HCL 50 MG TABLET (FP) PO SCH (21:44)
[2022-11-02] MEDS: HEPARIN NA (PORCINE) 5,000 UNITS/ML 1ML VIAL SQ SCH (21:44)
[2022-11-02] MEDS: LABETALOL HCL 200 MG TABLET (FP) PO SCH (21:44)
[2022-11-02] MEDS: MICONAZOLE NITRATE 28 GM TUBE TP SCH (22:48)
[2022-11-03] MEDS: HEPARIN NA (PORCINE) 5,000 UNITS/ML 1ML VIAL SQ SCH ×3 (05:35→22:59)
[2022-11-03] MEDS: INSULIN SLIDING SCALE (NOVOLOG) 1 VIAL SQ SCH ×4 (06:34→23:33)
[2022-11-03 07:02] LABS: BASO % 0.9 % (0-2.0); EOS % 2.4 % (0-4.5); HEMATOCRIT 32.1 % (35.4-49); HEMOGLOBIN 10.6 GM/dL (11.7-16.9); LYMPH % 18.9 % (8-40); MCH 29.9 pg (25.7-33.7); MEAN CELL VOLUME 90.6 fl (80-96); MONO % 8.6 % (3.8-10.2); NEUT % 69.2 % (42.8-82.8); PLATELET COUNT 189 10^3/uL (134-434); RBC 3.55 M/mm3 (4.00-5.60); WHITE BLOOD COUNT 5.3 K/mm3 (4.0-10.0)
[2022-11-03 08:04] LABS: ALBUMIN 2.8 g/dl (3.4-5.0); ALK PHOS 116 U/L (45-117); ANION GAP 9 MMOL/L (8-16); BILIRUBIN,TOTAL 0.4 mg/dL (0.2-1); BLOOD UREA NITROGEN 31.5 mg/dL (7-18); CALCIUM 7.7 mg/dL (8.5-10.1); CHLORIDE 98 mmol/L (98-107); CO2 27 mmol/L (21-32); CREATININE 5.6 mg/dL (0.55-1.3); GLUCOSE,RANDOM 486 mg/dL (74-106); MAGNESIUM 1.8 mg/dL (1.8-2.4); PHOSPHOROUS 2.5 mg/dL (2.5-4.9); SGOT/AST 13 U/L (15-37); SGPT/ALT 23 U/L (13-61); SODIUM 134 mmol/L (136-145); TOT PROT 6.9 g/dl (6.4-8.2)
[2022-11-03] MEDS ORDERED: INSULIN (LEVEMIR) 100 UNITS/ML UNITS SQ SCH (09:00)
[2022-11-03] MEDS: LABETALOL HCL 200 MG TABLET (FP) PO SCH ×2 (10:24→22:59)
[2022-11-03] MEDS: NIFEdipine E.R 60 MG TABLET PO SCH (10:24)
[2022-11-03] MEDS: CLOPIDOGREL BISULFATE 75 MG TABLET (FP) PO SCH (10:24)
[2022-11-03] MEDS: TORSEMIDE 100 MG TABLET PO SCH (10:24)
[2022-11-03] MEDS: MICONAZOLE NITRATE 28 GM TUBE TP SCH ×2 (10:24→23:05)
[2022-11-03] MEDS: INSULIN (LEVEMIR) 100 UNITS/ML UNITS SQ SCH (22:59)
[2022-11-03] MEDS: traZODone HCL 50 MG TABLET (FP) PO SCH (22:59)
[2022-11-04] MEDS: HEPARIN NA (PORCINE) 5,000 UNITS/ML 1ML VIAL SQ SCH ×3 (06:33→23:07)
[2022-11-04] MEDS: INSULIN (NOVOLOG) ASPART 100 UNITS/ML 10ML VIAL SQ SCH ×3 (06:34→16:48)
[2022-11-04] MEDS: INSULIN SLIDING SCALE (NOVOLOG) 1 VIAL SQ SCH ×4 (06:34→23:06)
[2022-11-04 07:09] LABS: BASO % 1.1 % (0-2.0); EOS % 3.8 % (0-4.5); HEMOGLOBIN 11.1 GM/dL (11.7-16.9); LYMPH % 19.5 % (8-40); MCH 29.4 pg (25.7-33.7); MCHC 32.6 g/dl (32.0-35.9); MEAN CELL VOLUME 90.2 fl (80-96); MEAN PLT VOLUME 8.1 fl (7.5-11.1); MONO % 9.3 % (3.8-10.2); NEUT % 66.3 % (42.8-82.8); PLATELET COUNT 223 10^3/uL (134-434); RBC 3.77 M/mm3 (4.00-5.60); RDW 15.5 % (11.9-15.9); WHITE BLOOD COUNT 5.3 K/mm3 (4.0-10.0)
[2022-11-04 07:10] LABS: POTASSIUM 3.8 mmol/L (3.5-5.1)
[2022-11-04 07:16] LABS: BLOOD UREA NITROGEN 41.6 mg/dL (7-18); CALCIUM 7.8 mg/dL (8.5-10.1)
[2022-11-04 07:17] LABS: ALBUMIN 2.9 g/dl (3.4-5.0); INR 1.34 (0.83-1.09); MAGNESIUM 1.7 mg/dL (1.8-2.4); PROTHROMBIN TIME (PATIENT) 15.5 SEC (9.7-13.0)
[2022-11-04 07:19] LABS: ACTIVATED PTT 31.8 SECONDS (25.2-36.5)
[2022-11-04 07:20] LABS: CREATININE 7.3 mg/dL (0.55-1.3); PHOSPHOROUS 3.1 mg/dL (2.5-4.9)
[2022-11-04 07:21] LABS: BILIRUBIN,TOTAL 0.7 mg/dL (0.2-1); TOT PROT 7.1 g/dl (6.4-8.2)
[2022-11-04] MEDS ORDERED: MAGNESIUM SULF 50% (8.12 MEQ/2 ML-1 GM VIAL) IVPB ONE ×2 (08:18→11:00)
[2022-11-04] MEDS: NIFEdipine E.R 60 MG TABLET PO SCH (10:51)
[2022-11-04] MEDS: LABETALOL HCL 200 MG TABLET (FP) PO SCH ×2 (10:51→23:05)
[2022-11-04] MEDS: CLOPIDOGREL BISULFATE 75 MG TABLET (FP) PO SCH (10:51)
[2022-11-04] MEDS: TORSEMIDE 100 MG TABLET PO SCH (10:51)
[2022-11-04] MEDS: MICONAZOLE NITRATE 28 GM TUBE TP SCH ×2 (10:53→23:07)
[2022-11-04] MEDS: INSULIN (LEVEMIR) 100 UNITS/ML UNITS SQ SCH (10:57)
[2022-11-04] MEDS ORDERED: SODIUM CHLORIDE 250 ML IV PRN (12:42)
[2022-11-04] MEDS ORDERED: INSULIN (NOVOLOG) ASPART 100 UNITS/ML 10ML VIAL ONE ×2 (16:53→22:58)
[2022-11-04] MEDS ORDERED: INSULIN (LEVEMIR) 100 UNITS/ML UNITS SQ SCH (22:00)
[2022-11-04] MEDS: traZODone HCL 50 MG TABLET (FP) PO SCH (23:06)
[2022-11-05] MEDS: HEPARIN NA (PORCINE) 5,000 UNITS/ML 1ML VIAL SQ SCH (05:40)
[2022-11-05] MEDS: INSULIN SLIDING SCALE (NOVOLOG) 1 VIAL SQ SCH ×3 (06:23→17:57)
[2022-11-05] MEDS ORDERED: INSULIN (NOVOLOG) ASPART 100 UNITS/ML 10ML VIAL SQ SCH (07:00)
[2022-11-05] MEDS ORDERED: INSULIN (LEVEMIR) 100 UNITS/ML UNITS SQ SCH (07:00)
[2022-11-05 08:21] VITALS: RESP 18
[2022-11-05] MEDS ORDERED: CLOPIDOGREL BISULFATE 75 MG TABLET (FP) PO SCH (10:00)
[2022-11-05] MEDS ORDERED: LABETALOL HCL 100 MG TABLET (FP) PO SCH (10:00)
[2022-11-05] MEDS ORDERED: MICONAZOLE NITRATE 14 GM/TUBE TUBE TP SCH (10:00)
[2022-11-05] MEDS ORDERED: NIFEdipine E.R 60 MG TABLET PO SCH (10:00)
[2022-11-05] MEDS ORDERED: TORSEMIDE 100 MG TABLET PO SCH (10:00)
[2022-11-05] MEDS ORDERED: EPOETIN ALFA-EPBX 3,000 UNIT/ML VIAL SQ ONE ×2 (12:42→15:00)
[2022-11-05 13:30] VITALS: TEMP 97.7
[2022-11-05] MEDS ORDERED: SODIUM CHLORIDE 250 ML IV PRN (14:00)
[2022-11-05] MEDS ORDERED: HEPARIN NA (PORCINE) 5,000 UNITS/ML 1ML VIAL SQ SCH (14:00)
[2022-11-05 15:44] LABS: HEMATOCRIT 33.3 % (35.4-49); HEMOGLOBIN 10.5 GM/dL (11.7-16.9); MCH 28.8 pg (25.7-33.7); MCHC 31.6 g/dl (32.0-35.9); MEAN CELL VOLUME 90.9 fl (80-96); MEAN PLT VOLUME 8.5 fl (7.5-11.1); PLATELET COUNT 204 10^3/uL (134-434); RBC 3.66 M/mm3 (4.00-5.60); RDW 15.6 % (11.9-15.9); WHITE BLOOD COUNT 5.5 K/mm3 (4.0-10.0)
[2022-11-05 16:06] LABS: CHLORIDE 99 mmol/L (98-107); POTASSIUM 4.7 mmol/L (3.5-5.1); SODIUM 132 mmol/L (136-145)
[2022-11-05 16:10] LABS: ANION GAP 8 MMOL/L (8-16); BLOOD UREA NITROGEN 53.5 mg/dL (7-18); CO2 25 mmol/L (21-32); GLUCOSE,RANDOM 269 mg/dL (74-106)
[2022-11-05 16:17] LABS: CREATININE 9.1 mg/dL (0.55-1.3)
[2022-11-05 18:29] VITALS: BP 167/77; PULSE 66
[2022-11-05] MEDS ORDERED: traZODone HCL 50 MG TABLET (FP) PO SCH (22:00)
== END 2022-11-05 19:05 | disposition home or self-care (01) ==
LOC: JER 13:13 → JERBED 14:55 → J4S 17:08 → J8W 11-04 13:44 → J5S 11-05 11:44
PROVIDERS: ADMIT Internal Medicine; ATTEND Nurse Practitioner Acute Care
PROC: 3E033GC Introduction of Other Therapeutic Substance into Peripheral Vein, Percutaneous Approach (ICD-10-PCS; principal; 2022-11-02)
PROC: 3E013VG Introduction of Insulin into Subcutaneous Tissue, Percutaneous Approach (ICD-10-PCS; 2022-11-02)
PROC: 3E013GC Introduction of Other Therapeutic Substance into Subcutaneous Tissue, Percutaneous Approach (ICD-10-PCS; 2022-11-02)
DX: E87.1 Hypo-osmolality and hyponatremia (principal); L92.1 Necrobiosis lipoidica, not elsewhere classified; Z91.158 Patient's noncompliance with renal dialysis for other reason; B35.6 Tinea cruris; E11.22 Type 2 diabetes mellitus with diabetic chronic kidney disease; E11.65 Type 2 diabetes mellitus with hyperglycemia; I13.2 Hypertensive heart and chronic kidney disease with heart failure and with stage 5 chronic kidney disease, or end stage renal disease; I50.9 Heart failure, unspecified; N18.6 End stage renal disease; Z99.2 Dependence on renal dialysis; Z79.4 Long term (current) use of insulin; Z86.16 Personal history of COVID-19; Z86.14 Personal history of Methicillin resistant Staphylococcus aureus infection; E87.79 Other fluid overload; Z79.82 Long term (current) use of aspirin; Z29.8 Encounter for other specified prophylactic measures; I25.10 Atherosclerotic heart disease of native coronary artery without angina pectoris; U07.1 COVID-19; I16.0 Hypertensive urgency
CPT/HCPCS: 0241U-QW; 36415; 76870-TC; 80048; 80053; 82962; 82985; 83036; 83735; 84100; 84484; 85025; 85027; 85610; 85730; 93005; 93010; 96372; 96374; 96375; 99285-25; G0378; J1644; Q5106

== ENCOUNTER 2022-12-10 11:59 | Inpatient (IN) | payer OTHER ==
[2022-12-10 12:38] LABS: EOS % 2.3 % (0-4.5); HEMATOCRIT 39.7 % (35.4-49); LYMPH % 14.1 % (8-40); MCH 28.4 pg (25.7-33.7); MCHC 30.3 g/dl (32.0-35.9); MEAN CELL VOLUME 93.8 fl (80-96); MEAN PLT VOLUME 8.3 fl (7.5-11.1); MONO % 8.5 % (3.8-10.2); NEUT % 74.1 % (42.8-82.8); PLATELET COUNT 191 10^3/uL (134-434); RBC 4.24 M/mm3 (4.00-5.60); VENOUS BASE EXCESS -4.3 mmol/L (-2-2); VENOUS O2 SATURATION 78.2 % (70-80); VENOUS PCO2 50.7 mmHg (38-52); VENOUS PH 7.273 (7.310-7.410); WHITE BLOOD COUNT 5.8 K/mm3 (4.0-10.0)
[2022-12-10 12:46] LABS: INR 1.31 (0.83-1.09); PROTHROMBIN TIME (PATIENT) 15.2 SEC (9.7-13.0)
[2022-12-10 12:49] LABS: ACTIVATED PTT 27.9 SECONDS (25.2-36.5)
[2022-12-10 13:39] LABS: CHLORIDE 91 mmol/L (98-107); POTASSIUM 4.3 mmol/L (3.5-5.1); SODIUM 124 mmol/L (136-145)
[2022-12-10 13:41] LABS: CALCIUM 8.9 mg/dL (8.5-10.1)
[2022-12-10 13:42] LABS: ANION GAP 13 MMOL/L (8-16); BLOOD UREA NITROGEN 34.5 mg/dL (7-18); CO2 20 mmol/L (21-32); MAGNESIUM 1.7 mg/dL (1.8-2.4)
[2022-12-10 13:44] LABS: PHOSPHOROUS 4.1 mg/dL (2.5-4.9)
[2022-12-10 13:45] LABS: SGOT/AST 16 U/L (15-37); SGPT/ALT 17 U/L (13-61)
[2022-12-10 13:46] LABS: BILIRUBIN,TOTAL 0.6 mg/dL (0.2-1); TOT PROT 7.5 g/dl (6.4-8.2)
[2022-12-10 13:47] LABS: ALK PHOS 139 U/L (45-117)
[2022-12-10] MEDS ORDERED: SODIUM CHLORIDE 250 ML IV PRN (13:50)
[2022-12-10 13:52] LABS: CREATININE 7.9 mg/dL (0.55-1.3); GLUCOSE,RANDOM 912 mg/dL (74-106)
[2022-12-10] MEDS ORDERED: INSULIN REGULAR HUMAN 100 UNITS/ML *VIAL SQ ONE ×2 (13:54→20:00)
[2022-12-10] MEDS ORDERED: INSULIN REGULAR HUMAN 100 UNITS/ML *VIAL ONE (14:16)
[2022-12-10] MEDS ORDERED: traZODone HCL 50 MG TABLET (FP) PO PRN (16:25)
[2022-12-10] MEDS: INSULIN (LEVEMIR) 100 UNITS/ML UNITS SQ SCH (21:25)
[2022-12-10] MEDS: LABETALOL HCL 200 MG TABLET (FP) PO SCH (21:27)
[2022-12-10] MEDS: HEPARIN NA (PORCINE) 5,000 UNITS/ML 1ML VIAL SQ SCH (21:28)
[2022-12-11 00:28] VITALS: BMI 28.6
[2022-12-11] MEDS: INSULIN (LEVEMIR) 100 UNITS/ML UNITS SQ SCH ×2 (06:37→21:54)
[2022-12-11 06:42] LABS: BASO % 0.9 % (0-2.0); EOS % 2.9 % (0-4.5); HEMATOCRIT 37.3 % (35.4-49); HEMOGLOBIN 11.6 GM/dL (11.7-16.9); MCH 27.7 pg (25.7-33.7); MCHC 31.2 g/dl (32.0-35.9); MEAN CELL VOLUME 88.8 fl (80-96); MEAN PLT VOLUME 8.2 fl (7.5-11.1); MONO % 7.8 % (3.8-10.2); NEUT % 69.4 % (42.8-82.8); PLATELET COUNT 215 10^3/uL (134-434); RDW 17.7 % (11.9-15.9); WHITE BLOOD COUNT 6.7 K/mm3 (4.0-10.0)
[2022-12-11] MEDS ORDERED: INSULIN REGULAR HUMAN 100 UNITS/ML *VIAL SQ ONE (07:00)
[2022-12-11 07:01] LABS: POTASSIUM 3.1 mmol/L (3.5-5.1)
[2022-12-11 07:04] LABS: ALBUMIN 2.8 g/dl (3.4-5.0); BLOOD UREA NITROGEN 23.2 mg/dL (7-18); CALCIUM 8.4 mg/dL (8.5-10.1); MAGNESIUM 1.5 mg/dL (1.8-2.4)
[2022-12-11 07:09] LABS: BILIRUBIN,TOTAL 0.7 mg/dL (0.2-1); TOT PROT 6.8 g/dl (6.4-8.2)
[2022-12-11] MEDS ORDERED: MAGNESIUM SULF 50% (8.12 MEQ/2 ML-1 GM VIAL) IVPB ONE (08:47)
[2022-12-11] MEDS ORDERED: POTASSIUM CHLORIDE TABS 20 MEQ TABLET.ER (FP) PO ONE (08:48)
[2022-12-11] MEDS: HEPARIN NA (PORCINE) 5,000 UNITS/ML 1ML VIAL SQ SCH ×2 (09:51→21:55)
[2022-12-11] MEDS: LABETALOL HCL 200 MG TABLET (FP) PO SCH ×2 (09:51→21:50)
[2022-12-11] MEDS: TORSEMIDE 100 MG TABLET PO SCH (09:51)
[2022-12-11] MEDS: CLOPIDOGREL BISULFATE 75 MG TABLET (FP) PO SCH (09:52)
[2022-12-11] MEDS: NIFEdipine E.R 60 MG TABLET PO SCH (09:52)
[2022-12-11] MEDS: TAMSULOSIN HCL 0.4 MG CAP PO SCH (09:52)
[2022-12-11] MEDS: INSULIN SLIDING SCALE (NOVOLOG) 1 VIAL SQ SCH ×5 (09:59→21:55)
[2022-12-11] MEDS ORDERED: LISINOPRIL 20 MG TABLET PO SCH (10:00)
[2022-12-11] MEDS ORDERED: LOSARTAN POTASSIUM 50 MG TABLET PO SCH (10:00)
[2022-12-11] MEDS ORDERED: PATIENT'S OWN MEDICATION (NON-FORMULARY) (Lisinopril [Lisinopril] 40 MG Tablet) PO SCH (10:00)
[2022-12-11] MEDS ORDERED: POTASSIUM CHLORIDE ORAL LIQUID 20 MEQ/15 ML PO ONE (11:04)
[2022-12-11] MEDS: LISINOPRIL 20 MG TABLET PO SCH (14:53)
[2022-12-12] MEDS: INSULIN SLIDING SCALE (NOVOLOG) 1 VIAL SQ SCH ×3 (06:23→16:45)
[2022-12-12] MEDS: INSULIN (LEVEMIR) 100 UNITS/ML UNITS SQ SCH (06:23)
[2022-12-12] MEDS: HEPARIN NA (PORCINE) 5,000 UNITS/ML 1ML VIAL SQ SCH (09:10)
[2022-12-12] MEDS: CLOPIDOGREL BISULFATE 75 MG TABLET (FP) PO SCH (09:10)
[2022-12-12] MEDS: TAMSULOSIN HCL 0.4 MG CAP PO SCH (09:10)
[2022-12-12] MEDS: TORSEMIDE 100 MG TABLET PO SCH (10:50)
[2022-12-12] MEDS ORDERED: SODIUM CHLORIDE 250 ML IV PRN (12:00)
[2022-12-12 13:12] VITALS: RESP 18
[2022-12-12 13:57] LABS: HEMATOCRIT 37.7 % (35.4-49); HEMOGLOBIN 11.7 GM/dL (11.7-16.9); MCH 27.9 pg (25.7-33.7); MCHC 31.2 g/dl (32.0-35.9); MEAN CELL VOLUME 89.4 fl (80-96); MEAN PLT VOLUME 8.3 fl (7.5-11.1); PLATELET COUNT 228 10^3/uL (134-434); RBC 4.21 M/mm3 (4.00-5.60); RDW 18.1 % (11.9-15.9); WHITE BLOOD COUNT 5.6 K/mm3 (4.0-10.0)
[2022-12-12 14:18] LABS: CHLORIDE 102 mmol/L (98-107); POTASSIUM 3.7 mmol/L (3.5-5.1); SODIUM 140 mmol/L (136-145)
[2022-12-12 14:23] LABS: ALBUMIN 2.7 g/dl (3.4-5.0); ANION GAP 10 MMOL/L (8-16); CALCIUM 8.8 mg/dL (8.5-10.1); CO2 28 mmol/L (21-32)
[2022-12-12 14:24] LABS: BLOOD UREA NITROGEN 36.7 mg/dL (7-18); GLUCOSE,RANDOM 233 mg/dL (74-106)
[2022-12-12 14:27] LABS: SGOT/AST 9 U/L (15-37); SGPT/ALT 15 U/L (13-61)
[2022-12-12 14:28] LABS: BILIRUBIN,TOTAL 0.7 mg/dL (0.2-1); TOT PROT 6.8 g/dl (6.4-8.2)
[2022-12-12 14:30] LABS: ALK PHOS 112 U/L (45-117)
[2022-12-12 15:00] LABS: CREATININE 7.9 mg/dL (0.55-1.3)
[2022-12-12] MEDS: LISINOPRIL 20 MG TABLET PO SCH (16:19)
[2022-12-12] MEDS: NIFEdipine E.R 60 MG TABLET PO SCH (16:19)
[2022-12-12] MEDS: LABETALOL HCL 200 MG TABLET (FP) PO SCH (16:20)
[2022-12-12 18:08] VITALS: BP 185/88; PULSE 73; TEMP 98.7
== END 2022-12-12 18:30 | disposition home or self-care (01) | DRG 637 ==
LOC: JER 11:59 → INTOOBSV 12:09 → UNDOADMOB 12:09 → JERBED 12:09 → UNDOADMOB 15:42 → JERBED 15:42 → INTOOBSV 16:17 → JERBED 16:17 → OBSVTOIN 16:17 → J4S 18:38
PROVIDERS: ADMIT Internal Medicine; ATTEND Internal Medicine
PROC: 5A1D70Z Performance of Urinary Filtration, Intermittent, Less than 6 Hours Per Day (ICD-10-PCS; principal; 2022-12-12)
DX: E11.00 Type 2 diabetes mellitus with hyperosmolarity without nonketotic hyperglycemic-hyperosmolar coma (NKHHC) (principal); N18.6 End stage renal disease; E87.1 Hypo-osmolality and hyponatremia; I13.2 Hypertensive heart and chronic kidney disease with heart failure and with stage 5 chronic kidney disease, or end stage renal disease; I50.32 Chronic diastolic (congestive) heart failure; I24.9 Acute ischemic heart disease, unspecified; E11.22 Type 2 diabetes mellitus with diabetic chronic kidney disease; E11.40 Type 2 diabetes mellitus with diabetic neuropathy, unspecified; E11.51 Type 2 diabetes mellitus with diabetic peripheral angiopathy without gangrene; E11.621 Type 2 diabetes mellitus with foot ulcer; L97.529 Non-pressure chronic ulcer of other part of left foot with unspecified severity; E78.5 Hyperlipidemia, unspecified; I25.10 Atherosclerotic heart disease of native coronary artery without angina pectoris; R55 Syncope and collapse; E87.6 Hypokalemia; E83.42 Hypomagnesemia; Z95.5 Presence of coronary angioplasty implant and graft; E87.70 Fluid overload, unspecified; Z99.2 Dependence on renal dialysis
CPT/HCPCS: 0241U-QW; 36415; 70450-TC; 70486-TC; 71045-TC-FY; 72125-TC; 80053; 82010; 82550; 82803; 82962; 83036; 83735; 83930; 84100; 84484; 85025; 85027; 85610; 85730; 86803; 87340; 93005; 93010; 99285-25; J1644

== ENCOUNTER 2022-12-24 23:01 | Observation (INO) | payer OTHER ==
[2022-12-24 23:08] VITALS: BMI 29.9
[2022-12-25 01:37] LABS: EOS % 3.7 % (0-4.5); HEMATOCRIT 35.6 % (35.4-49); HEMOGLOBIN 11.3 GM/dL (11.7-16.9); LYMPH % 17.3 % (8-40); MCH 27.9 pg (25.7-33.7); MCHC 31.6 g/dl (32.0-35.9); MEAN CELL VOLUME 88.3 fl (80-96); MEAN PLT VOLUME 7.2 fl (7.5-11.1); PLATELET COUNT 264 10^3/uL (134-434); RBC 4.03 M/mm3 (4.00-5.60); RDW 19.6 % (11.9-15.9); WHITE BLOOD COUNT 5.7 K/mm3 (4.0-10.0)
[2022-12-25 02:05] LABS: CHLORIDE 103 mmol/L (98-107); POTASSIUM 4.3 mmol/L (3.5-5.1); SODIUM 139 mmol/L (136-145)
[2022-12-25 02:07] LABS: CALCIUM 9.5 mg/dL (8.5-10.1)
[2022-12-25 02:08] LABS: ANION GAP 13 MMOL/L (8-16); CO2 24 mmol/L (21-32); GLUCOSE,RANDOM 85 mg/dL (74-106)
[2022-12-25 02:11] LABS: PHOSPHOROUS 5.1 mg/dL (2.5-4.9); SGOT/AST 9 U/L (15-37); SGPT/ALT 21 U/L (13-61)
[2022-12-25 02:12] LABS: BILIRUBIN,TOTAL 0.8 mg/dL (0.2-1)
[2022-12-25 02:13] LABS: TOT PROT 8.2 g/dl (6.4-8.2)
[2022-12-25 02:14] LABS: ALK PHOS 136 U/L (45-117)
[2022-12-25 02:32] LABS: ALBUMIN 3.4 g/dl (3.4-5.0); BLOOD UREA NITROGEN 63.4 mg/dL (7-18); CREATININE 8.6 mg/dL (0.55-1.3); N-TERMINAL BNP 82087.5 pg/ml (5-125)
[2022-12-25 06:50] LABS: INR 1.42 (0.83-1.09); PROTHROMBIN TIME (PATIENT) 16.4 SEC (9.7-13.0)
[2022-12-25] MEDS ORDERED: SODIUM CHLORIDE 250 ML IV PRN (07:42)
[2022-12-25] MEDS ORDERED: BENZOCAINE/MENTH/CETYLPYRD CL 1 EACH LOZENGE MM ONE (08:07)
[2022-12-25] MEDS: BENZOCAINE/MENTH/CETYLPYRD CL 1 EACH LOZENGE MM PRN (08:08)
[2022-12-25] MEDS ORDERED: CLOPIDOGREL BISULFATE 75 MG TABLET (FP) ONE (08:28)
[2022-12-25] MEDS ORDERED: TAMSULOSIN HCL 0.4 MG CAP ONE (08:28)
[2022-12-25] MEDS ORDERED: HEPARIN NA (PORCINE) 5,000 UNITS/ML 1ML VIAL ONE (08:29)
[2022-12-25] MEDS: HEPARIN NA (PORCINE) 5,000 UNITS/ML 1ML VIAL SQ SCH ×2 (09:07→21:41)
[2022-12-25] MEDS: TAMSULOSIN HCL 0.4 MG CAP PO SCH (09:07)
[2022-12-25] MEDS: CLOPIDOGREL BISULFATE 75 MG TABLET (FP) PO SCH (09:08)
[2022-12-25] MEDS: VITAMIN B COMP W-C 1 EA TABLET (NEPHRO-VITE) PO SCH (12:02)
[2022-12-25] MEDS ORDERED: INSULIN (NOVOLOG) ASPART 100 UNITS/ML 10ML VIAL ONE ×2 (12:06→21:27)
[2022-12-25] MEDS: INSULIN SLIDING SCALE (NOVOLOG) 1 VIAL SQ SCH ×3 (12:07→21:41)
[2022-12-25 21:46] VITALS: RESP 18
[2022-12-25] MEDS ORDERED: traZODone HCL 50 MG TABLET (FP) PO PRN (22:00)
[2022-12-26] MEDS: BENZOCAINE/MENTH/CETYLPYRD CL 1 EACH LOZENGE MM PRN (00:17)
[2022-12-26] MEDS: INSULIN SLIDING SCALE (NOVOLOG) 1 VIAL SQ SCH ×3 (06:36→17:26)
[2022-12-26 09:02] LABS: BASO % 1.2 % (0-2.0); EOS % 3.5 % (0-4.5); HEMATOCRIT 33.3 % (35.4-49); HEMOGLOBIN 10.3 GM/dL (11.7-16.9); LYMPH % 22.3 % (8-40); MCH 27.7 pg (25.7-33.7); MEAN CELL VOLUME 89.1 fl (80-96); MEAN PLT VOLUME 8.1 fl (7.5-11.1); MONO % 9.5 % (3.8-10.2); NEUT % 63.5 % (42.8-82.8); PLATELET COUNT 240 10^3/uL (134-434); RBC 3.74 M/mm3 (4.00-5.60); RDW 19.2 % (11.9-15.9); WHITE BLOOD COUNT 4.7 K/mm3 (4.0-10.0)
[2022-12-26 09:13] LABS: POTASSIUM 3.9 mmol/L (3.5-5.1)
[2022-12-26 09:21] LABS: CALCIUM 8.4 mg/dL (8.5-10.1)
[2022-12-26 09:22] LABS: BLOOD UREA NITROGEN 42.5 mg/dL (7-18)
[2022-12-26 09:24] LABS: CREATININE 6.2 mg/dL (0.55-1.3)
[2022-12-26 09:25] LABS: BILIRUBIN,TOTAL 1.2 mg/dL (0.2-1); PHOSPHOROUS 3.9 mg/dL (2.5-4.9)
[2022-12-26 09:27] LABS: TOT PROT 7.2 g/dl (6.4-8.2)
[2022-12-26] MEDS: CLOPIDOGREL BISULFATE 75 MG TABLET (FP) PO SCH (09:34)
[2022-12-26] MEDS: VITAMIN B COMP W-C 1 EA TABLET (NEPHRO-VITE) PO SCH (09:34)
[2022-12-26] MEDS: TAMSULOSIN HCL 0.4 MG CAP PO SCH (09:34)
[2022-12-26] MEDS: HEPARIN NA (PORCINE) 5,000 UNITS/ML 1ML VIAL SQ SCH (09:36)
[2022-12-26] MEDS ORDERED: LABETALOL HCL 200 MG TABLET (FP) PO SCH (10:00)
[2022-12-26] MEDS ORDERED: LISINOPRIL 20 MG TABLET PO SCH (10:00)
[2022-12-26] MEDS ORDERED: NIFEdipine E.R 60 MG TABLET PO SCH (10:00)
[2022-12-26] MEDS ORDERED: INSULIN (NOVOLOG) ASPART 100 UNITS/ML 10ML VIAL ONE (11:01)
[2022-12-26] MEDS ORDERED: SODIUM CHLORIDE 250 ML IV PRN (12:43)
[2022-12-26 18:00] VITALS: BP 159/84; PULSE 105; TEMP 97.9
== END 2022-12-26 20:25 | disposition home or self-care (01) ==
LOC: JER 23:01 → JERBED 12-25 05:55 → UNDOADMOB 12-25 05:55 → INTOOBSV 12-25 05:55 → JERBED 12-25 07:54 → J8W 12-25 09:21
PROVIDERS: ADMIT Internal Medicine; ATTEND Nurse Practitioner Family
PROC: 3E013GC Introduction of Other Therapeutic Substance into Subcutaneous Tissue, Percutaneous Approach (ICD-10-PCS; principal; 2022-12-25)
DX: E11.22 Type 2 diabetes mellitus with diabetic chronic kidney disease (principal); R06.02 Shortness of breath; E87.70 Fluid overload, unspecified; I13.2 Hypertensive heart and chronic kidney disease with heart failure and with stage 5 chronic kidney disease, or end stage renal disease; I50.9 Heart failure, unspecified; N18.6 End stage renal disease; Z99.2 Dependence on renal dialysis; Z91.158 Patient's noncompliance with renal dialysis for other reason; Z79.4 Long term (current) use of insulin; Z87.891 Personal history of nicotine dependence; Z86.14 Personal history of Methicillin resistant Staphylococcus aureus infection; Z86.73 Personal history of transient ischemic attack (TIA), and cerebral infarction without residual deficits; Z86.16 Personal history of COVID-19; Z91.018 Allergy to other foods; Z89.429 Acquired absence of other toe(s), unspecified side; E87.1 Hypo-osmolality and hyponatremia; Z91.81 History of falling
CPT/HCPCS: 36415; 71045-TC-FY; 80053; 82962; 83735; 83880; 84100; 84484; 85025; 85610; 93005; 93010; 96372; 99285-25; G0378; J1644

== ENCOUNTER 2023-01-13 13:25 | Emergency (ER) | payer OTHER ==
[2023-01-13 13:40] VITALS: RESP 18; BMI 27.6
[2023-01-13 16:45] LABS: BASO % 0.8 % (0-2.0); EOS % 2.5 % (0-4.5); HEMATOCRIT 35.4 % (35.4-49); LYMPH % 12.6 % (8-40); MCH 27.4 pg (25.7-33.7); MCHC 30.9 g/dl (32.0-35.9); MEAN CELL VOLUME 88.5 fl (80-96); MONO % 7.7 % (3.8-10.2); NEUT % 76.4 % (42.8-82.8); RDW 19.1 % (11.9-15.9); WHITE BLOOD COUNT 5.6 K/mm3 (4.0-10.0)
[2023-01-13 17:03] LABS: POTASSIUM 4.4 mmol/L (3.5-5.1)
[2023-01-13 17:05] LABS: BLOOD UREA NITROGEN 47.2 mg/dL (7-18); CALCIUM 8.9 mg/dL (8.5-10.1)
[2023-01-13 17:06] LABS: ALBUMIN 3.4 g/dl (3.4-5.0)
[2023-01-13 17:10] LABS: BILIRUBIN,TOTAL 0.6 mg/dL (0.2-1); TOT PROT 7.9 g/dl (6.4-8.2)
[2023-01-13 17:16] LABS: CREATININE 7.4 mg/dL (0.55-1.3)
[2023-01-13 17:38] LABS: PLATELET COUNT 146 10^3/uL (134-434)
[2023-01-13 17:39] LABS: MEAN PLT VOLUME 7.7 fl (7.5-11.1); PLATELET ESTIMATE DECREASED
[2023-01-13] MEDS ORDERED: ACETAMINOPHEN 500 MG TABLET (FP) PO ONE (17:59)
[2023-01-13] MEDS ORDERED: LIDOCAINE 5% TOPICAL PATCH TP ONE (17:59)
[2023-01-13] MEDS ORDERED: ACETAMINOPHEN 325 MG TABLET (FP) ONE (18:25)
[2023-01-13] MEDS ORDERED: LIDOCAINE 5% TOPICAL PATCH ONE (18:26)
[2023-01-13] MEDS ORDERED: cloNIDine HCL 0.1 MG TABLET PO ONE (21:56)
[2023-01-13] MEDS ORDERED: LIDOCAINE PATCH REMOVAL MC ONE (22:00)
[2023-01-14 00:40] VITALS: BP 144/75; PULSE 77; TEMP 97.6
== END 2023-01-14 01:35 | disposition home or self-care (01) ==
LOC: JER 13:25
DX: S09.90XA Unspecified injury of head, initial encounter (principal); M54.2 Cervicalgia; M54.9 Dorsalgia, unspecified; R51.9 Headache, unspecified; R19.7 Diarrhea, unspecified; W01.198A Fall on same level from slipping, tripping and stumbling with subsequent striking against other object, initial encounter; Y92.002 Bathroom of unspecified non-institutional (private) residence as the place of occurrence of the external cause
CPT/HCPCS: 36415; 70450-TC; 72125-TC; 80053; 84484; 85025; 93005; 93010; 99285-25

== ENCOUNTER 2023-01-18 12:51 | Inpatient (IN) | payer OTHER ==
[2023-01-18 13:01] VITALS: BMI 27.2
[2023-01-18 18:13] LABS: EOS % 2.6 % (0-4.5); HEMATOCRIT 32.2 % (35.4-49); LYMPH % 16.7 % (8-40); MCH 27.3 pg (25.7-33.7); MCHC 30.9 g/dl (32.0-35.9); MEAN CELL VOLUME 88.3 fl (80-96); MEAN PLT VOLUME 8.6 fl (7.5-11.1); MONO % 10.7 % (3.8-10.2); PLATELET COUNT 193 10^3/uL (134-434); RBC 3.64 M/mm3 (4.00-5.60); RDW 18.8 % (11.9-15.9); WHITE BLOOD COUNT 5.9 K/mm3 (4.0-10.0)
[2023-01-18 18:31] LABS: POTASSIUM 4.2 mmol/L (3.5-5.1)
[2023-01-18 18:33] LABS: ALBUMIN 3.2 g/dl (3.4-5.0); BLOOD UREA NITROGEN 47.3 mg/dL (7-18); CALCIUM 9.5 mg/dL (8.5-10.1)
[2023-01-18 18:36] LABS: CREATININE 6.7 mg/dL (0.55-1.3)
[2023-01-18 18:38] LABS: BILIRUBIN,TOTAL 0.5 mg/dL (0.2-1); TOT PROT 7.8 g/dl (6.4-8.2)
[2023-01-18] MEDS: LABETALOL HCL 100 MG TABLET (FP) PO SCH (22:47)
[2023-01-18] MEDS: INSULIN (LEVEMIR) 100 UNITS/ML UNITS SQ SCH (22:47)
[2023-01-18] MEDS: HEPARIN NA (PORCINE) 5,000 UNITS/ML 1ML VIAL SQ SCH (22:47)
[2023-01-18] MEDS: INSULIN SLIDING SCALE (NOVOLOG) 1 VIAL SQ SCH (22:48)
[2023-01-19] MEDS: INSULIN (LEVEMIR) 100 UNITS/ML UNITS SQ SCH ×2 (06:44→22:49)
[2023-01-19] MEDS: INSULIN SLIDING SCALE (NOVOLOG) 1 VIAL SQ SCH ×4 (06:44→23:03)
[2023-01-19] MEDS: TAMSULOSIN HCL 0.4 MG CAP PO SCH (08:41)
[2023-01-19 08:58] LABS: EOS % 3.7 % (0-4.5); HEMATOCRIT 31.4 % (35.4-49); HEMOGLOBIN 9.9 GM/dL (11.7-16.9); LYMPH % 21.2 % (8-40); MCH 27.7 pg (25.7-33.7); MCHC 31.5 g/dl (32.0-35.9); MEAN PLT VOLUME 8.3 fl (7.5-11.1); MONO % 13.1 % (3.8-10.2); PLATELET COUNT 198 10^3/uL (134-434); RBC 3.56 M/mm3 (4.00-5.60); RDW 18.2 % (11.9-15.9); WHITE BLOOD COUNT 4.8 K/mm3 (4.0-10.0)
[2023-01-19] MEDS ORDERED: ACETAMINOPHEN 1000 MG/100 ML BAG IVPB PRN (09:32)
[2023-01-19] MEDS: LABETALOL HCL 100 MG TABLET (FP) PO SCH ×2 (09:50→22:49)
[2023-01-19] MEDS: CLOPIDOGREL BISULFATE 75 MG TABLET (FP) PO SCH (09:50)
[2023-01-19] MEDS: NIFEdipine E.R 60 MG TABLET PO SCH (09:50)
[2023-01-19] MEDS: VITAMIN B COMP W-C 1 EA TABLET (NEPHRO-VITE) PO SCH (09:51)
[2023-01-19] MEDS: HYDROmorphone HCL 2 MG TABLET PO PRN (09:51)
[2023-01-19] MEDS: LISINOPRIL 20 MG TABLET PO SCH (09:51)
[2023-01-19] MEDS: HEPARIN NA (PORCINE) 5,000 UNITS/ML 1ML VIAL SQ SCH ×2 (09:54→22:48)
[2023-01-19] MEDS: TORSEMIDE 100 MG TABLET PO SCH (09:59)
[2023-01-19 10:29] LABS: POTASSIUM 3.6 mmol/L (3.5-5.1)
[2023-01-19 10:42] LABS: ALBUMIN 3.1 g/dl (3.4-5.0); BLOOD UREA NITROGEN 31.2 mg/dL (7-18); CALCIUM 8.8 mg/dL (8.5-10.1)
[2023-01-19 10:44] LABS: BILIRUBIN,TOTAL 0.6 mg/dL (0.2-1); TOT PROT 7.5 g/dl (6.4-8.2)
[2023-01-19] MEDS ORDERED: SODIUM CHLORIDE 250 ML IV PRN (13:25)
[2023-01-19] MEDS: LIDOCAINE 5% TOPICAL PATCH TP SCH (14:18)
[2023-01-19] MEDS: LIDOCAINE PATCH REMOVAL MC SCH (23:26)
[2023-01-20] MEDS: HYDROmorphone HCL 2 MG TABLET PO PRN (04:12)
[2023-01-20] MEDS: INSULIN (LEVEMIR) 100 UNITS/ML UNITS SQ SCH ×2 (06:23→22:23)
[2023-01-20] MEDS: INSULIN SLIDING SCALE (NOVOLOG) 1 VIAL SQ SCH ×4 (06:24→22:25)
[2023-01-20] MEDS: TAMSULOSIN HCL 0.4 MG CAP PO SCH (08:39)
[2023-01-20] MEDS: LABETALOL HCL 100 MG TABLET (FP) PO SCH ×2 (09:27→22:23)
[2023-01-20] MEDS: TORSEMIDE 100 MG TABLET PO SCH (09:27)
[2023-01-20] MEDS: CLOPIDOGREL BISULFATE 75 MG TABLET (FP) PO SCH (09:27)
[2023-01-20] MEDS: HEPARIN NA (PORCINE) 5,000 UNITS/ML 1ML VIAL SQ SCH ×2 (09:27→22:22)
[2023-01-20] MEDS: NIFEdipine E.R 60 MG TABLET PO SCH (09:27)
[2023-01-20] MEDS: LISINOPRIL 20 MG TABLET PO SCH (09:27)
[2023-01-20] MEDS: LIDOCAINE 5% TOPICAL PATCH TP SCH (09:27)
[2023-01-20] MEDS: VITAMIN B COMP W-C 1 EA TABLET (NEPHRO-VITE) PO SCH (09:27)
[2023-01-20 09:53] LABS: EOS % 3.7 % (0-4.5); HEMOGLOBIN 10.9 GM/dL (11.7-16.9); LYMPH % 23.4 % (8-40); MCH 27.6 pg (25.7-33.7); MCHC 31.1 g/dl (32.0-35.9); MEAN CELL VOLUME 88.8 fl (80-96); MEAN PLT VOLUME 8.5 fl (7.5-11.1); NEUT % 62.9 % (42.8-82.8); PLATELET COUNT 181 10^3/uL (134-434); RBC 3.94 M/mm3 (4.00-5.60); RDW 18.4 % (11.9-15.9); WHITE BLOOD COUNT 5.4 K/mm3 (4.0-10.0)
[2023-01-20 10:03] LABS: POTASSIUM 4.1 mmol/L (3.5-5.1)
[2023-01-20 10:09] LABS: BLOOD UREA NITROGEN 45.8 mg/dL (7-18); CALCIUM 8.6 mg/dL (8.5-10.1)
[2023-01-20 10:10] LABS: ALBUMIN 3.3 g/dl (3.4-5.0); MAGNESIUM 1.9 mg/dL (1.8-2.4)
[2023-01-20 10:12] LABS: PHOSPHOROUS 4.2 mg/dL (2.5-4.9)
[2023-01-20 10:13] LABS: CREATININE 6.8 mg/dL (0.55-1.3)
[2023-01-20 10:15] LABS: BILIRUBIN,TOTAL 0.6 mg/dL (0.2-1)
[2023-01-20] MEDS ORDERED: ACETAMINOPHEN 500 MG TABLET (FP) PO PRN (10:34)
[2023-01-21] MEDS: LIDOCAINE PATCH REMOVAL MC SCH ×2 (06:58→21:19)
[2023-01-21] MEDS: INSULIN (LEVEMIR) 100 UNITS/ML UNITS SQ SCH ×2 (06:59→21:20)
[2023-01-21] MEDS: INSULIN SLIDING SCALE (NOVOLOG) 1 VIAL SQ SCH ×4 (06:59→21:19)
[2023-01-21 10:06] LABS: HEMATOCRIT 32.5 % (35.4-49); HEMOGLOBIN 10.1 GM/dL (11.7-16.9); MCH 27.7 pg (25.7-33.7); MCHC 31.1 g/dl (32.0-35.9); MEAN CELL VOLUME 88.9 fl (80-96); MEAN PLT VOLUME 8.3 fl (7.5-11.1); PLATELET COUNT 200 10^3/uL (134-434); RBC 3.66 M/mm3 (4.00-5.60); RDW 18.4 % (11.9-15.9); WHITE BLOOD COUNT 5.5 K/mm3 (4.0-10.0)
[2023-01-21 10:33] LABS: CHLORIDE 102 mmol/L (98-107); POTASSIUM 4.5 mmol/L (3.5-5.1); SODIUM 139 mmol/L (136-145)
[2023-01-21 10:37] LABS: ALBUMIN 3.1 g/dl (3.4-5.0); ANION GAP 11 MMOL/L (8-16); BLOOD UREA NITROGEN 59.6 mg/dL (7-18); CALCIUM 8.5 mg/dL (8.5-10.1); CO2 26 mmol/L (21-32); GLUCOSE,RANDOM 170 mg/dL (74-106)
[2023-01-21 10:40] LABS: PHOSPHOROUS 4.9 mg/dL (2.5-4.9); SGOT/AST 8 U/L (15-37); SGPT/ALT 25 U/L (13-61)
[2023-01-21 10:43] LABS: BILIRUBIN,TOTAL 0.8 mg/dL (0.2-1); TOT PROT 7.4 g/dl (6.4-8.2)
[2023-01-21 10:44] LABS: ALK PHOS 105 U/L (45-117); CREATININE 8.2 mg/dL (0.55-1.3)
[2023-01-21] MEDS ORDERED: SODIUM CHLORIDE 250 ML IV PRN (10:57)
[2023-01-21] MEDS ORDERED: EPOETIN ALFA-EPBX 4,000 UNIT/ML VIAL SQ ONE (11:00)
[2023-01-21] MEDS: LISINOPRIL 20 MG TABLET PO SCH (13:31)
[2023-01-21] MEDS: NIFEdipine E.R 60 MG TABLET PO SCH (13:31)
[2023-01-21] MEDS: TORSEMIDE 100 MG TABLET PO SCH (13:32)
[2023-01-21] MEDS: LABETALOL HCL 100 MG TABLET (FP) PO SCH ×2 (13:32→21:19)
[2023-01-21] MEDS: CLOPIDOGREL BISULFATE 75 MG TABLET (FP) PO SCH (13:32)
[2023-01-21] MEDS: LIDOCAINE 5% TOPICAL PATCH TP SCH (13:33)
[2023-01-21] MEDS: HEPARIN NA (PORCINE) 5,000 UNITS/ML 1ML VIAL SQ SCH ×2 (13:34→21:20)
[2023-01-21] MEDS: TAMSULOSIN HCL 0.4 MG CAP PO SCH (13:42)
[2023-01-21] MEDS: VITAMIN B COMP W-C 1 EA TABLET (NEPHRO-VITE) PO SCH (15:49)
[2023-01-21] MEDS: traZODone HCL 50 MG TABLET (FP) PO PRN (21:19)
[2023-01-21] MEDS: ACETAMINOPHEN 500 MG TABLET (FP) PO PRN (23:04)
[2023-01-22] MEDS: INSULIN SLIDING SCALE (NOVOLOG) 1 VIAL SQ SCH ×4 (06:07→21:27)
[2023-01-22] MEDS: INSULIN (LEVEMIR) 100 UNITS/ML UNITS SQ SCH ×2 (06:07→21:30)
[2023-01-22] MEDS: ACETAMINOPHEN 500 MG TABLET (FP) PO PRN ×2 (06:08→21:29)
[2023-01-22] MEDS: TAMSULOSIN HCL 0.4 MG CAP PO SCH (09:39)
[2023-01-22] MEDS: NIFEdipine E.R 60 MG TABLET PO SCH (09:39)
[2023-01-22] MEDS: LISINOPRIL 20 MG TABLET PO SCH (09:39)
[2023-01-22] MEDS: VITAMIN B COMP W-C 1 EA TABLET (NEPHRO-VITE) PO SCH (09:40)
[2023-01-22] MEDS: LABETALOL HCL 100 MG TABLET (FP) PO SCH ×2 (09:40→21:28)
[2023-01-22] MEDS: TORSEMIDE 100 MG TABLET PO SCH (09:40)
[2023-01-22] MEDS: CLOPIDOGREL BISULFATE 75 MG TABLET (FP) PO SCH (09:40)
[2023-01-22] MEDS: LIDOCAINE 5% TOPICAL PATCH TP SCH (09:41)
[2023-01-22] MEDS: HEPARIN NA (PORCINE) 5,000 UNITS/ML 1ML VIAL SQ SCH ×2 (09:41→21:29)
[2023-01-22 10:09] LABS: HEMATOCRIT 31.8 % (35.4-49); HEMOGLOBIN 10.2 GM/dL (11.7-16.9); MCH 28.3 pg (25.7-33.7); MCHC 32.1 g/dl (32.0-35.9); MEAN CELL VOLUME 88.3 fl (80-96); MEAN PLT VOLUME 7.4 fl (7.5-11.1); PLATELET COUNT 176 10^3/uL (134-434); RDW 18.9 % (11.9-15.9); WHITE BLOOD COUNT 4.3 K/mm3 (4.0-10.0)
[2023-01-22 10:52] LABS: BLOOD UREA NITROGEN 37.4 mg/dL (7-18)
[2023-01-22 10:55] LABS: CALCIUM 8.6 mg/dL (8.5-10.1); CREATININE 6.2 mg/dL (0.55-1.3); PHOSPHOROUS 3.4 mg/dL (2.5-4.9)
[2023-01-22 11:16] LABS: ERYTHROCYTE SEDIMENTATION RATE 12 mm/hr (0-20)
[2023-01-22] MEDS ORDERED: SODIUM CHLORIDE 250 ML IV PRN (11:53)
[2023-01-22] MEDS ORDERED: COLLAGENASE CLOSTRIDIUM HIST. 30 GRAMS TUBE TP SCH (14:45)
[2023-01-22] MEDS: traZODone HCL 50 MG TABLET (FP) PO PRN (21:29)
[2023-01-22] MEDS: LIDOCAINE PATCH REMOVAL MC SCH (22:13)
[2023-01-23] MEDS: INSULIN (LEVEMIR) 100 UNITS/ML UNITS SQ SCH ×2 (06:12→21:14)
[2023-01-23] MEDS: INSULIN SLIDING SCALE (NOVOLOG) 1 VIAL SQ SCH ×4 (06:12→21:23)
[2023-01-23] MEDS ORDERED: EPOETIN ALFA-EPBX 4,000 UNIT/ML VIAL IVPUSH ONE (08:15)
[2023-01-23 08:24] LABS: HEMATOCRIT 31.6 % (35.4-49); MCH 28.1 pg (25.7-33.7); MCHC 31.7 g/dl (32.0-35.9); MEAN CELL VOLUME 88.7 fl (80-96); MEAN PLT VOLUME 7.8 fl (7.5-11.1); PLATELET COUNT 182 10^3/uL (134-434); RBC 3.57 M/mm3 (4.00-5.60); WHITE BLOOD COUNT 4.4 K/mm3 (4.0-10.0)
[2023-01-23 08:41] LABS: POTASSIUM 4.6 mmol/L (3.5-5.1)
[2023-01-23 08:43] LABS: ALBUMIN 3.2 g/dl (3.4-5.0); BLOOD UREA NITROGEN 51.7 mg/dL (7-18); CALCIUM 8.3 mg/dL (8.5-10.1)
[2023-01-23 08:49] LABS: BILIRUBIN,TOTAL 0.7 mg/dL (0.2-1); TOT PROT 7.6 g/dl (6.4-8.2)
[2023-01-23 08:56] LABS: CREATININE 7.4 mg/dL (0.55-1.3)
[2023-01-23] MEDS: TORSEMIDE 100 MG TABLET PO SCH (11:53)
[2023-01-23] MEDS: TAMSULOSIN HCL 0.4 MG CAP PO SCH (11:54)
[2023-01-23] MEDS: CLOPIDOGREL BISULFATE 75 MG TABLET (FP) PO SCH (11:54)
[2023-01-23] MEDS: LABETALOL HCL 100 MG TABLET (FP) PO SCH ×2 (11:54→21:13)
[2023-01-23] MEDS: LISINOPRIL 20 MG TABLET PO SCH (11:54)
[2023-01-23] MEDS: NIFEdipine E.R 60 MG TABLET PO SCH (11:54)
[2023-01-23] MEDS: LIDOCAINE 5% TOPICAL PATCH TP SCH (11:54)
[2023-01-23] MEDS: HEPARIN NA (PORCINE) 5,000 UNITS/ML 1ML VIAL SQ SCH ×2 (11:54→21:14)
[2023-01-23] MEDS: VITAMIN B COMP W-C 1 EA TABLET (NEPHRO-VITE) PO SCH (11:54)
[2023-01-23] MEDS: traZODone HCL 50 MG TABLET (FP) PO PRN (21:13)
[2023-01-23] MEDS: LIDOCAINE PATCH REMOVAL MC SCH (22:15)
[2023-01-24] MEDS: INSULIN SLIDING SCALE (NOVOLOG) 1 VIAL SQ SCH ×4 (06:06→22:48)
[2023-01-24] MEDS: INSULIN (LEVEMIR) 100 UNITS/ML UNITS SQ SCH ×2 (06:13→22:49)
[2023-01-24] MEDS: LIDOCAINE 5% TOPICAL PATCH TP SCH (09:30)
[2023-01-24] MEDS: HEPARIN NA (PORCINE) 5,000 UNITS/ML 1ML VIAL SQ SCH ×2 (09:31→22:41)
[2023-01-24] MEDS: TAMSULOSIN HCL 0.4 MG CAP PO SCH (09:31)
[2023-01-24] MEDS: CLOPIDOGREL BISULFATE 75 MG TABLET (FP) PO SCH (09:31)
[2023-01-24] MEDS: NIFEdipine E.R 60 MG TABLET PO SCH (09:31)
[2023-01-24] MEDS: VITAMIN B COMP W-C 1 EA TABLET (NEPHRO-VITE) PO SCH (09:31)
[2023-01-24] MEDS: LISINOPRIL 20 MG TABLET PO SCH (09:31)
[2023-01-24] MEDS: LABETALOL HCL 100 MG TABLET (FP) PO SCH ×2 (09:31→22:45)
[2023-01-24] MEDS: ACETAMINOPHEN 500 MG TABLET (FP) PO PRN ×2 (09:31→22:41)
[2023-01-24 10:43] LABS: POTASSIUM 4.2 mmol/L (3.5-5.1)
[2023-01-24 10:44] LABS: CALCIUM 8.3 mg/dL (8.5-10.1)
[2023-01-24 10:45] LABS: BLOOD UREA NITROGEN 44.3 mg/dL (7-18)
[2023-01-24] MEDS: TORSEMIDE 100 MG TABLET PO SCH (10:45)
[2023-01-24 10:48] LABS: CREATININE 5.9 mg/dL (0.55-1.3); PHOSPHOROUS 3.4 mg/dL (2.5-4.9)
[2023-01-24] MEDS: LIDOCAINE PATCH REMOVAL MC SCH (22:49)
[2023-01-25] MEDS: traZODone HCL 50 MG TABLET (FP) PO PRN ×2 (00:52→22:21)
[2023-01-25] MEDS: INSULIN (LEVEMIR) 100 UNITS/ML UNITS SQ SCH ×2 (06:05→22:18)
[2023-01-25] MEDS: INSULIN SLIDING SCALE (NOVOLOG) 1 VIAL SQ SCH ×4 (07:16→22:16)
[2023-01-25] MEDS ORDERED: SODIUM CHLORIDE 250 ML IV PRN (08:32)
[2023-01-25] MEDS ORDERED: EPOETIN ALFA-EPBX 4,000 UNIT/ML VIAL SQ ONE (08:45)
[2023-01-25 09:10] LABS: HEMATOCRIT 31.4 % (35.4-49); HEMOGLOBIN 9.9 GM/dL (11.7-16.9); MCH 28.4 pg (25.7-33.7); MCHC 31.5 g/dl (32.0-35.9); MEAN CELL VOLUME 89.9 fl (80-96); MEAN PLT VOLUME 8.3 fl (7.5-11.1); PLATELET COUNT 174 10^3/uL (134-434); RBC 3.49 M/mm3 (4.00-5.60); RDW 19.1 % (11.9-15.9); WHITE BLOOD COUNT 4.6 K/mm3 (4.0-10.0)
[2023-01-25 09:29] LABS: CHLORIDE 103 mmol/L (98-107); POTASSIUM 4.5 mmol/L (3.5-5.1); SODIUM 139 mmol/L (136-145)
[2023-01-25 09:35] LABS: ANION GAP 9 MMOL/L (8-16); BLOOD UREA NITROGEN 64.2 mg/dL (7-18); CALCIUM 8.2 mg/dL (8.5-10.1); CO2 28 mmol/L (21-32); GLUCOSE,RANDOM 121 mg/dL (74-106)
[2023-01-25 09:39] LABS: PHOSPHOROUS 4.8 mg/dL (2.5-4.9)
[2023-01-25 09:40] LABS: CREATININE 7.5 mg/dL (0.55-1.3)
[2023-01-25] MEDS: LABETALOL HCL 100 MG TABLET (FP) PO SCH ×2 (12:27→22:20)
[2023-01-25] MEDS: TORSEMIDE 100 MG TABLET PO SCH (12:27)
[2023-01-25] MEDS: TAMSULOSIN HCL 0.4 MG CAP PO SCH (12:27)
[2023-01-25] MEDS: NIFEdipine E.R 60 MG TABLET PO SCH (12:27)
[2023-01-25] MEDS: CLOPIDOGREL BISULFATE 75 MG TABLET (FP) PO SCH (12:28)
[2023-01-25] MEDS: HEPARIN NA (PORCINE) 5,000 UNITS/ML 1ML VIAL SQ SCH ×2 (12:28→13:02)
[2023-01-25] MEDS: LISINOPRIL 20 MG TABLET PO SCH (12:28)
[2023-01-25] MEDS: VITAMIN B COMP W-C 1 EA TABLET (NEPHRO-VITE) PO SCH (12:28)
[2023-01-25] MEDS: LIDOCAINE 5% TOPICAL PATCH TP SCH (12:29)
[2023-01-25] MEDS: LIDOCAINE PATCH REMOVAL MC SCH (22:18)
[2023-01-25] MEDS: ACETAMINOPHEN 500 MG TABLET (FP) PO PRN (22:20)
[2023-01-26] MEDS: INSULIN (LEVEMIR) 100 UNITS/ML UNITS SQ SCH ×2 (06:24→22:39)
[2023-01-26] MEDS: INSULIN SLIDING SCALE (NOVOLOG) 1 VIAL SQ SCH ×4 (06:24→22:38)
[2023-01-26] MEDS: TAMSULOSIN HCL 0.4 MG CAP PO SCH (08:59)
[2023-01-26] MEDS: LIDOCAINE 5% TOPICAL PATCH TP SCH (10:26)
[2023-01-26] MEDS: LABETALOL HCL 100 MG TABLET (FP) PO SCH ×2 (10:26→22:40)
[2023-01-26] MEDS: NIFEdipine E.R 60 MG TABLET PO SCH (10:27)
[2023-01-26] MEDS: TORSEMIDE 100 MG TABLET PO SCH (10:27)
[2023-01-26] MEDS: VITAMIN B COMP W-C 1 EA TABLET (NEPHRO-VITE) PO SCH (10:27)
[2023-01-26] MEDS: CLOPIDOGREL BISULFATE 75 MG TABLET (FP) PO SCH (10:27)
[2023-01-26] MEDS: LISINOPRIL 20 MG TABLET PO SCH (10:27)
[2023-01-26] MEDS: LIDOCAINE PATCH REMOVAL MC SCH (22:39)
[2023-01-27] MEDS ORDERED: INSULIN (LEVEMIR) 100 UNITS/ML UNITS SQ ONE (00:03)
[2023-01-27] MEDS: INSULIN (LEVEMIR) 100 UNITS/ML UNITS SQ SCH ×2 (07:00→21:39)
[2023-01-27] MEDS: INSULIN SLIDING SCALE (NOVOLOG) 1 VIAL SQ SCH ×4 (07:00→21:38)
[2023-01-27] MEDS: TAMSULOSIN HCL 0.4 MG CAP PO SCH (08:56)
[2023-01-27] MEDS: LIDOCAINE 5% TOPICAL PATCH TP SCH (10:36)
[2023-01-27] MEDS: LABETALOL HCL 100 MG TABLET (FP) PO SCH ×2 (10:37→21:39)
[2023-01-27] MEDS: VITAMIN B COMP W-C 1 EA TABLET (NEPHRO-VITE) PO SCH (10:37)
[2023-01-27] MEDS: CLOPIDOGREL BISULFATE 75 MG TABLET (FP) PO SCH (10:37)
[2023-01-27] MEDS: LISINOPRIL 20 MG TABLET PO SCH (10:37)
[2023-01-27] MEDS: TORSEMIDE 100 MG TABLET PO SCH (10:37)
[2023-01-27] MEDS: NIFEdipine E.R 60 MG TABLET PO SCH (10:37)
[2023-01-27 11:05] LABS: EOS % 2.7 % (0-4.5); HEMATOCRIT 33.7 % (35.4-49); HEMOGLOBIN 10.3 GM/dL (11.7-16.9); LYMPH % 20.3 % (8-40); MCH 27.7 pg (25.7-33.7); MCHC 30.6 g/dl (32.0-35.9); MEAN CELL VOLUME 90.7 fl (80-96); MEAN PLT VOLUME 8.1 fl (7.5-11.1); MONO % 7.6 % (3.8-10.2); NEUT % 68.4 % (42.8-82.8); PLATELET COUNT 178 10^3/uL (134-434); RBC 3.72 M/mm3 (4.00-5.60); RDW 19.2 % (11.9-15.9); WHITE BLOOD COUNT 4.6 K/mm3 (4.0-10.0)
[2023-01-27] MEDS ORDERED: BENZOCAINE/MENTH/CETYLPYRD CL 1 EACH LOZENGE MM PRN (12:16)
[2023-01-27] MEDS ORDERED: SODIUM CHLORIDE 250 ML IV PRN (12:45)
[2023-01-27 14:19] LABS: ALBUMIN 3.2 g/dl (3.4-5.0); ALK PHOS 116 U/L (45-117); ANION GAP 10 MMOL/L (8-16); BLOOD UREA NITROGEN 70.2 mg/dL (7-18); CALCIUM 8.3 mg/dL (8.5-10.1); CHLORIDE 100 mmol/L (98-107); CO2 31 mmol/L (21-32); CREATININE 7.7 mg/dL (0.55-1.3); GLUCOSE,RANDOM 145 mg/dL (74-106); POTASSIUM 4.7 mmol/L (3.5-5.1); SGOT/AST 13 U/L (15-37); SGPT/ALT 25 U/L (13-61); SODIUM 140 mmol/L (136-145); TOT PROT 7.6 g/dl (6.4-8.2)
[2023-01-28] MEDS: INSULIN SLIDING SCALE (NOVOLOG) 1 VIAL SQ SCH ×3 (06:21→16:37)
[2023-01-28] MEDS: INSULIN (LEVEMIR) 100 UNITS/ML UNITS SQ SCH (06:22)
[2023-01-28] MEDS ORDERED: EPOETIN ALFA-EPBX 4,000 UNIT/ML VIAL IVPUSH ONE (09:00)
[2023-01-28 09:51] LABS: HEMATOCRIT 32.1 % (35.4-49); MCH 27.8 pg (25.7-33.7); MCHC 31.2 g/dl (32.0-35.9); MEAN CELL VOLUME 89.3 fl (80-96); PLATELET COUNT 182 10^3/uL (134-434); RBC 3.59 M/mm3 (4.00-5.60); RDW 18.9 % (11.9-15.9); WHITE BLOOD COUNT 4.9 K/mm3 (4.0-10.0)
[2023-01-28 10:10] LABS: CHLORIDE 101 mmol/L (98-107); POTASSIUM 4.6 mmol/L (3.5-5.1); SODIUM 140 mmol/L (136-145)
[2023-01-28 10:14] LABS: ANION GAP 13 MMOL/L (8-16); BLOOD UREA NITROGEN 82.2 mg/dL (7-18); CO2 26 mmol/L (21-32)
[2023-01-28 10:16] LABS: PHOSPHOROUS 5.7 mg/dL (2.5-4.9)
[2023-01-28 10:18] LABS: MAGNESIUM 2.2 mg/dL (1.8-2.4)
[2023-01-28 10:19] LABS: GLUCOSE,RANDOM 97 mg/dL (74-106)
[2023-01-28 10:25] LABS: CREATININE 8.9 mg/dL (0.55-1.3)
[2023-01-28 11:22] VITALS: RESP 18
[2023-01-28] MEDS: NIFEdipine E.R 60 MG TABLET PO SCH (12:15)
[2023-01-28] MEDS: LISINOPRIL 20 MG TABLET PO SCH (12:15)
[2023-01-28] MEDS: TAMSULOSIN HCL 0.4 MG CAP PO SCH (12:15)
[2023-01-28] MEDS: CLOPIDOGREL BISULFATE 75 MG TABLET (FP) PO SCH (12:15)
[2023-01-28] MEDS: VITAMIN B COMP W-C 1 EA TABLET (NEPHRO-VITE) PO SCH (12:15)
[2023-01-28] MEDS: TORSEMIDE 100 MG TABLET PO SCH (12:15)
[2023-01-28] MEDS: LABETALOL HCL 100 MG TABLET (FP) PO SCH (12:15)
[2023-01-28] MEDS: LIDOCAINE 5% TOPICAL PATCH TP SCH (12:16)
[2023-01-28] MEDS: LIDOCAINE PATCH REMOVAL MC SCH (12:16)
[2023-01-28 13:26] VITALS: BP 152/79; PULSE 82; TEMP 98.3
== END 2023-01-28 17:34 | disposition home or self-care (01) | DRG 640 ==
LOC: JER 12:51 → JERBED 16:11 → J5S 22:24 → OBSVTOIN 01-22 11:50
PROVIDERS: ADMIT Internal Medicine; ATTEND Internal Medicine
PROC: 5A1D70Z Performance of Urinary Filtration, Intermittent, Less than 6 Hours Per Day (ICD-10-PCS; principal; 2023-01-28)
DX: E87.70 Fluid overload, unspecified (principal); N18.6 End stage renal disease; I13.2 Hypertensive heart and chronic kidney disease with heart failure and with stage 5 chronic kidney disease, or end stage renal disease; I50.32 Chronic diastolic (congestive) heart failure; M54.50 Low back pain, unspecified; E11.9 Type 2 diabetes mellitus without complications; I25.10 Atherosclerotic heart disease of native coronary artery without angina pectoris; I73.9 Peripheral vascular disease, unspecified; Z95.5 Presence of coronary angioplasty implant and graft; E78.5 Hyperlipidemia, unspecified; N40.0 Benign prostatic hyperplasia without lower urinary tract symptoms
CPT/HCPCS: 36415; 70450-TC; 71046-TC-FY; 72125-TC; 72131-TC; 80048; 80053; 82962; 83735; 84100; 85025; 85027; 85651; 86803; 87340; 93005; 93010; 93925-TC; 97116-GP; 97162-GP; 99285-25; G0378; J1644; Q5106

== ENCOUNTER 2023-04-12 12:39 | Inpatient (IN) | payer OTHER ==
[2023-04-12 12:47] VITALS: BMI 26.4
[2023-04-12 14:06] LABS: BASO % 0.7 % (0-2.0); EOS % 2.9 % (0-4.5); HEMATOCRIT 32.9 % (35.4-49); HEMOGLOBIN 10.3 GM/dL (11.7-16.9); LYMPH % 15.5 % (8-40); MCH 28.9 pg (25.7-33.7); MCHC 31.3 g/dl (32.0-35.9); MEAN CELL VOLUME 92.3 fl (80-96); MEAN PLT VOLUME 7.8 fl (7.5-11.1); MONO % 9.2 % (3.8-10.2); NEUT % 71.7 % (42.8-82.8); PLATELET COUNT 186 10^3/uL (134-434); RBC 3.56 M/mm3 (4.00-5.60); RDW 17.6 % (11.9-15.9); WHITE BLOOD COUNT 5.6 K/mm3 (4.0-10.0)
[2023-04-12 14:15] LABS: CHLORIDE 103 mmol/L (98-107); POTASSIUM 5.7 mmol/L (3.5-5.1); SODIUM 136 mmol/L (136-145)
[2023-04-12 14:17] LABS: ALBUMIN 3.4 g/dl (3.4-5.0); ANION GAP 8 MMOL/L (8-16); CALCIUM 8.2 mg/dL (8.5-10.1); CO2 24 mmol/L (21-32); GLUCOSE,RANDOM 361 mg/dL (74-106)
[2023-04-12 14:20] LABS: PHOSPHOROUS 3.7 mg/dL (2.5-4.9); SGOT/AST 16 U/L (15-37); SGPT/ALT 42 U/L (13-61)
[2023-04-12 14:22] LABS: BILIRUBIN,TOTAL 0.6 mg/dL (0.2-1); TOT PROT 8.4 g/dl (6.4-8.2)
[2023-04-12 14:23] LABS: ALK PHOS 107 U/L (45-117)
[2023-04-12] MEDS ORDERED: AZITHROMYCIN IVPB 500 MG in DEXTROSE 5%-WATER - 250 ML IVPB ONE (14:42)
[2023-04-12] MEDS ORDERED: PIPERACILLIN/TAZOB 3.375 GM 3.375 GM in DEXTROSE 5%-WATER - 50 ML IVPB ONE (14:42)
[2023-04-12] MEDS ORDERED: SODIUM CHLORIDE 250 ML IV PRN (14:57)
[2023-04-12] MEDS ORDERED: PIPERACILLIN/TAZOB 2.25 GM 2.25 GM in DEXTROSE 5%-WATER - 50 ML IVPB SCH (18:00)
[2023-04-12] MEDS: INSULIN SLIDING SCALE (NOVOLOG) 1 VIAL SQ SCH ×2 (19:44→21:40)
[2023-04-12] MEDS: VANCOMYCIN PREMIX 1.75 GM 1,750 MG/350 ML PIGGYBACK IVPB ONE ×2 (19:44→22:00)
[2023-04-12] MEDS ORDERED: AZITHROMYCIN IVPB 500 MG/250 ML BAG IVPB ONE (20:30)
[2023-04-12] MEDS: PIPERACILLIN/TAZOB 2.25 GM 2.25 GM in DEXTROSE 5%-WATER - 50 ML IVPB SCH (21:33)
[2023-04-12] MEDS: HEPARIN NA (PORCINE) 5,000 UNITS/ML 1ML VIAL SQ SCH (21:38)
[2023-04-12] MEDS: LABETALOL HCL 100 MG TABLET (FP) PO SCH (21:38)
[2023-04-12] MEDS: traZODone HCL 50 MG TABLET (FP) PO PRN (21:39)
[2023-04-12] MEDS: INSULIN (LEVEMIR) 100 UNITS/ML UNITS SQ SCH (21:40)
[2023-04-13] MEDS: PIPERACILLIN/TAZOB 2.25 GM 2.25 GM in DEXTROSE 5%-WATER - 50 ML IVPB SCH ×2 (02:00→10:21)
[2023-04-13] MEDS: INSULIN SLIDING SCALE (NOVOLOG) 1 VIAL SQ SCH ×4 (06:15→21:04)
[2023-04-13] MEDS: INSULIN (LEVEMIR) 100 UNITS/ML UNITS SQ SCH ×2 (06:15→21:04)
[2023-04-13] MEDS ORDERED: ENOXAPARIN NA (PORCINE) 30 MG/0.3 ML DISP.SYRIN SQ SCH (10:00)
[2023-04-13] MEDS: CLOPIDOGREL BISULFATE 75 MG TABLET (FP) PO SCH (10:19)
[2023-04-13] MEDS: TAMSULOSIN HCL 0.4 MG CAP PO SCH (10:19)
[2023-04-13] MEDS: LABETALOL HCL 100 MG TABLET (FP) PO SCH ×2 (10:19→21:03)
[2023-04-13] MEDS: VITAMIN B COMP W-C 1 EA TABLET (NEPHRO-VITE) PO SCH (10:19)
[2023-04-13] MEDS: NIFEdipine E.R 60 MG TABLET PO SCH (10:20)
[2023-04-13] MEDS: LISINOPRIL 20 MG TABLET PO SCH (10:20)
[2023-04-13] MEDS: HEPARIN NA (PORCINE) 5,000 UNITS/ML 1ML VIAL SQ SCH ×2 (10:20→21:04)
[2023-04-13] MEDS: TORSEMIDE 100 MG TABLET PO SCH (10:20)
[2023-04-13 13:16] LABS: POTASSIUM 4.1 mmol/L (3.5-5.1)
[2023-04-13 13:19] LABS: CALCIUM 7.6 mg/dL (8.5-10.1)
[2023-04-13 13:23] LABS: CREATININE 5.9 mg/dL (0.55-1.3)
[2023-04-13 13:24] LABS: BLOOD UREA NITROGEN 38.9 mg/dL (7-18)
[2023-04-13] MEDS: BENZOCAINE/MENTHOL (CHLORASEPTIC ) LOZENGE MM PRN (15:08)
[2023-04-13] MEDS: traZODone HCL 50 MG TABLET (FP) PO PRN (23:52)
[2023-04-14] MEDS: INSULIN SLIDING SCALE (NOVOLOG) 1 VIAL SQ SCH ×4 (06:16→21:26)
[2023-04-14] MEDS: INSULIN (LEVEMIR) 100 UNITS/ML UNITS SQ SCH ×2 (06:16→21:24)
[2023-04-14] MEDS: TAMSULOSIN HCL 0.4 MG CAP PO SCH (09:21)
[2023-04-14] MEDS: LABETALOL HCL 100 MG TABLET (FP) PO SCH (09:21)
[2023-04-14] MEDS: CLOPIDOGREL BISULFATE 75 MG TABLET (FP) PO SCH (09:22)
[2023-04-14] MEDS: HEPARIN NA (PORCINE) 5,000 UNITS/ML 1ML VIAL SQ SCH ×2 (09:22→21:25)
[2023-04-14] MEDS: NIFEdipine E.R 60 MG TABLET PO SCH (09:22)
[2023-04-14] MEDS: VITAMIN B COMP W-C 1 EA TABLET (NEPHRO-VITE) PO SCH (09:22)
[2023-04-14] MEDS: TORSEMIDE 100 MG TABLET PO SCH (09:22)
[2023-04-14] MEDS: LISINOPRIL 20 MG TABLET PO SCH (09:22)
[2023-04-14] MEDS: ASPIRIN 81 MG CHEWABLE TABLETS PO SCH (14:54)
[2023-04-14] MEDS: BENZOCAINE/MENTHOL (CHLORASEPTIC ) LOZENGE MM PRN (15:10)
[2023-04-14] MEDS: SEVELAMER CARBONATE 800 MG TAB (FP) PO SCH (17:38)
[2023-04-14] MEDS: ATORVASTATIN CA 40 MG TABLET (FP) PO SCH (21:25)
[2023-04-14] MEDS: CALCIUM CARBONATE 650 MG TABLET PO SCH (21:26)
[2023-04-15] MEDS: INSULIN SLIDING SCALE (NOVOLOG) 1 VIAL SQ SCH ×4 (06:02→22:23)
[2023-04-15] MEDS: INSULIN (LEVEMIR) 100 UNITS/ML UNITS SQ SCH ×2 (06:15→22:24)
[2023-04-15] MEDS: SEVELAMER CARBONATE 800 MG TAB (FP) PO SCH ×3 (07:47→16:40)
[2023-04-15] MEDS: TAMSULOSIN HCL 0.4 MG CAP PO SCH (07:47)
[2023-04-15] MEDS ORDERED: SODIUM CHLORIDE 250 ML IV PRN (08:55)
[2023-04-15 09:13] LABS: HEMATOCRIT 29.3 % (35.4-49); HEMOGLOBIN 9.6 GM/dL (11.7-16.9); MCH 29.4 pg (25.7-33.7); MCHC 32.7 g/dl (32.0-35.9); MEAN CELL VOLUME 90.1 fl (80-96); MEAN PLT VOLUME 7.6 fl (7.5-11.1); PLATELET COUNT 184 10^3/uL (134-434); RBC 3.25 M/mm3 (4.00-5.60); RDW 18.2 % (11.9-15.9); WHITE BLOOD COUNT 5.7 K/mm3 (4.0-10.0)
[2023-04-15 09:40] LABS: CHLORIDE 100 mmol/L (98-107); POTASSIUM 4.9 mmol/L (3.5-5.1); SODIUM 137 mmol/L (136-145)
[2023-04-15 09:42] LABS: ANION GAP 12 MMOL/L (8-16); CALCIUM 7.5 mg/dL (8.5-10.1); CO2 25 mmol/L (21-32); GLUCOSE,RANDOM 122 mg/dL (74-106)
[2023-04-15 09:43] LABS: BLOOD UREA NITROGEN 62.4 mg/dL (7-18)
[2023-04-15 09:46] LABS: SGOT/AST 8 U/L (15-37)
[2023-04-15 09:47] LABS: BILIRUBIN,TOTAL 0.7 mg/dL (0.2-1); TOT PROT 7.6 g/dl (6.4-8.2)
[2023-04-15 09:48] LABS: ALK PHOS 86 U/L (45-117)
[2023-04-15 09:55] LABS: SGPT/ALT 30 U/L (13-61)
[2023-04-15] MEDS ORDERED: EPOETIN ALFA-EPBX 4,000 UNIT/ML VIAL SQ ONE (10:00)
[2023-04-15 10:32] LABS: CREATININE 9.2 mg/dL (0.55-1.3)
[2023-04-15] MEDS: HEPARIN NA (PORCINE) 5,000 UNITS/ML 1ML VIAL SQ SCH ×2 (12:23→22:21)
[2023-04-15] MEDS: LISINOPRIL 20 MG TABLET PO SCH (12:24)
[2023-04-15] MEDS: NIFEdipine E.R. 30 MG TABLET PO SCH (12:24)
[2023-04-15] MEDS: VITAMIN B COMP W-C 1 EA TABLET (NEPHRO-VITE) PO SCH (12:24)
[2023-04-15] MEDS: ASPIRIN 81 MG CHEWABLE TABLETS PO SCH (12:24)
[2023-04-15] MEDS: TORSEMIDE 100 MG TABLET PO SCH (12:24)
[2023-04-15] MEDS: CALCIUM CARBONATE 650 MG TABLET PO SCH ×2 (12:24→22:24)
[2023-04-15] MEDS: ATORVASTATIN CA 40 MG TABLET (FP) PO SCH (22:22)
[2023-04-15] MEDS: traZODone HCL 50 MG TABLET (FP) PO PRN (22:37)
[2023-04-15] MEDS: BENZOCAINE/MENTHOL (CHLORASEPTIC ) LOZENGE MM PRN ×2 (23:49→23:51)
[2023-04-16] MEDS ORDERED: oxyCODONE HCL 5 MG TABLET PO ONE (06:22)
[2023-04-16] MEDS: BENZOCAINE/MENTHOL (CHLORASEPTIC ) LOZENGE MM PRN ×2 (06:42→22:11)
[2023-04-16] MEDS: INSULIN (LEVEMIR) 100 UNITS/ML UNITS SQ SCH ×2 (06:53→22:08)
[2023-04-16] MEDS: INSULIN SLIDING SCALE (NOVOLOG) 1 VIAL SQ SCH ×4 (06:53→22:06)
[2023-04-16 08:29] LABS: HEMATOCRIT 29.5 % (35.4-49); HEMOGLOBIN 9.5 GM/dL (11.7-16.9); MCH 29.6 pg (25.7-33.7); MEAN CELL VOLUME 92.2 fl (80-96); MEAN PLT VOLUME 7.4 fl (7.5-11.1); PLATELET COUNT 189 10^3/uL (134-434); WHITE BLOOD COUNT 4.5 K/mm3 (4.0-10.0)
[2023-04-16 09:48] LABS: ALBUMIN 3.2 g/dl (3.4-5.0); BILIRUBIN,TOTAL 0.7 mg/dL (0.2-1); CALCIUM 7.5 mg/dL (8.5-10.1); CREATININE 6.6 mg/dL (0.55-1.3); PHOSPHOROUS 3.3 mg/dL (2.5-4.9); POTASSIUM 4.1 mmol/L (3.5-5.1); TOT PROT 7.8 g/dl (6.4-8.2)
[2023-04-16] MEDS: SEVELAMER CARBONATE 800 MG TAB (FP) PO SCH ×3 (09:50→17:12)
[2023-04-16] MEDS: TAMSULOSIN HCL 0.4 MG CAP PO SCH (09:50)
[2023-04-16] MEDS: VITAMIN B COMP W-C 1 EA TABLET (NEPHRO-VITE) PO SCH (09:51)
[2023-04-16] MEDS: CALCIUM CARBONATE 650 MG TABLET PO SCH ×2 (09:51→22:09)
[2023-04-16] MEDS: TORSEMIDE 100 MG TABLET PO SCH (09:51)
[2023-04-16] MEDS: NIFEdipine E.R. 30 MG TABLET PO SCH (09:51)
[2023-04-16] MEDS: LISINOPRIL 20 MG TABLET PO SCH (09:51)
[2023-04-16] MEDS: ASPIRIN 81 MG CHEWABLE TABLETS PO SCH (09:51)
[2023-04-16] MEDS ORDERED: oxyCODONE HCL 5 MG TABLET PO PRN (10:18)
[2023-04-16] MEDS ORDERED: ACETAMINOPHEN 325 MG TABLET (FP) PO PRN (10:20)
[2023-04-16] MEDS ORDERED: SODIUM CHLORIDE 250 ML IV PRN (10:57)
[2023-04-16] MEDS: oxyCODONE HCL 5 MG TABLET PO PRN ×2 (12:08→22:10)
[2023-04-16] MEDS: ATORVASTATIN CA 40 MG TABLET (FP) PO SCH (22:09)
[2023-04-16] MEDS: traZODone HCL 50 MG TABLET (FP) PO PRN (22:10)
[2023-04-17] MEDS: INSULIN SLIDING SCALE (NOVOLOG) 1 VIAL SQ SCH ×4 (05:59→21:42)
[2023-04-17] MEDS: INSULIN (LEVEMIR) 100 UNITS/ML UNITS SQ SCH ×2 (06:00→21:41)
[2023-04-17] MEDS: SEVELAMER CARBONATE 800 MG TAB (FP) PO SCH ×3 (08:31→16:47)
[2023-04-17] MEDS: TAMSULOSIN HCL 0.4 MG CAP PO SCH (08:31)
[2023-04-17 10:00] LABS: HEMATOCRIT 28.6 % (35.4-49); HEMOGLOBIN 9.5 GM/dL (11.7-16.9); MCH 29.9 pg (25.7-33.7); MEAN CELL VOLUME 90.5 fl (80-96); MEAN PLT VOLUME 7.4 fl (7.5-11.1); PLATELET COUNT 172 10^3/uL (134-434); RBC 3.16 M/mm3 (4.00-5.60); RDW 18.7 % (11.9-15.9); WHITE BLOOD COUNT 5.4 K/mm3 (4.0-10.0)
[2023-04-17] MEDS ORDERED: EPOETIN ALFA-EPBX 10,000 UNIT/ML VIAL IVPUSH ONE (10:00)
[2023-04-17 10:40] LABS: ALBUMIN 3.2 g/dl (3.4-5.0)
[2023-04-17 10:41] LABS: SGOT/AST 11 U/L (15-37)
[2023-04-17 10:42] LABS: ALK PHOS 102 U/L (45-117); BILIRUBIN,TOTAL 0.8 mg/dL (0.2-1); BLOOD UREA NITROGEN 50.9 mg/dL (7-18); CALCIUM 7.6 mg/dL (8.5-10.1); CO2 31 mmol/L (21-32); GLUCOSE,RANDOM 111 mg/dL (74-106); TOT PROT 7.8 g/dl (6.4-8.2)
[2023-04-17 11:19] LABS: ANION GAP 6 MMOL/L (8-16); CHLORIDE 99 mmol/L (98-107); POTASSIUM 4.6 mmol/L (3.5-5.1); SODIUM 136 mmol/L (136-145)
[2023-04-17 11:27] LABS: SGPT/ALT 31 U/L (13-61)
[2023-04-17] MEDS: ASPIRIN 81 MG CHEWABLE TABLETS PO SCH (12:23)
[2023-04-17] MEDS: VITAMIN B COMP W-C 1 EA TABLET (NEPHRO-VITE) PO SCH (12:25)
[2023-04-17] MEDS: LISINOPRIL 20 MG TABLET PO SCH (12:25)
[2023-04-17] MEDS: CALCIUM CARBONATE 650 MG TABLET PO SCH ×2 (12:25→21:41)
[2023-04-17] MEDS: NIFEdipine E.R. 30 MG TABLET PO SCH (12:25)
[2023-04-17] MEDS: TORSEMIDE 100 MG TABLET PO SCH (12:25)
[2023-04-17] MEDS: oxyCODONE HCL 5 MG TABLET PO PRN (16:46)
[2023-04-17 18:43] LABS: BF WBC & OTHER NUCLEATED CELLS 103 /mm3
[2023-04-17 20:06] LABS: BODY FLUID MONOCYTE 7 %; BODYL FLD EOSINOPHIL 1 %
[2023-04-17 20:07] LABS: BODY FLUID MACROPHAGES 21 %
[2023-04-17] MEDS: ATORVASTATIN CA 40 MG TABLET (FP) PO SCH (21:41)
[2023-04-18] MEDS: oxyCODONE HCL 5 MG TABLET PO PRN ×3 (00:59→17:30)
[2023-04-18] MEDS: INSULIN (LEVEMIR) 100 UNITS/ML UNITS SQ SCH ×2 (06:40→22:18)
[2023-04-18] MEDS: INSULIN SLIDING SCALE (NOVOLOG) 1 VIAL SQ SCH ×4 (06:40→22:19)
[2023-04-18 08:18] LABS: HEMATOCRIT 29.8 % (35.4-49); HEMOGLOBIN 9.9 GM/dL (11.7-16.9); MCH 30.2 pg (25.7-33.7); MCHC 33.2 g/dl (32.0-35.9); MEAN PLT VOLUME 7.3 fl (7.5-11.1); PLATELET COUNT 176 10^3/uL (134-434); RBC 3.27 M/mm3 (4.00-5.60); WHITE BLOOD COUNT 6.2 K/mm3 (4.0-10.0)
[2023-04-18] MEDS: TAMSULOSIN HCL 0.4 MG CAP PO SCH (08:34)
[2023-04-18] MEDS: SEVELAMER CARBONATE 800 MG TAB (FP) PO SCH ×3 (08:34→17:27)
[2023-04-18 08:35] LABS: POTASSIUM 4.4 mmol/L (3.5-5.1)
[2023-04-18 08:39] LABS: ALBUMIN 3.2 g/dl (3.4-5.0); BLOOD UREA NITROGEN 39.6 mg/dL (7-18); CALCIUM 7.5 mg/dL (8.5-10.1)
[2023-04-18 08:41] LABS: CREATININE 6.6 mg/dL (0.55-1.3)
[2023-04-18 08:44] LABS: BILIRUBIN,TOTAL 0.7 mg/dL (0.2-1); TOT PROT 7.8 g/dl (6.4-8.2)
[2023-04-18] MEDS: NIFEdipine E.R. 30 MG TABLET PO SCH (09:23)
[2023-04-18] MEDS: TORSEMIDE 100 MG TABLET PO SCH (09:24)
[2023-04-18] MEDS: CALCIUM CARBONATE 650 MG TABLET PO SCH ×2 (09:24→22:17)
[2023-04-18] MEDS: LISINOPRIL 20 MG TABLET PO SCH (09:24)
[2023-04-18] MEDS: ASPIRIN 81 MG CHEWABLE TABLETS PO SCH (09:24)
[2023-04-18] MEDS: VITAMIN B COMP W-C 1 EA TABLET (NEPHRO-VITE) PO SCH (09:24)
[2023-04-18] MEDS: HEPARIN NA (PORCINE) 5,000 UNITS/ML 1ML VIAL SQ SCH ×2 (09:24→22:17)
[2023-04-18] MEDS: ATORVASTATIN CA 40 MG TABLET (FP) PO SCH (22:17)
[2023-04-19] MEDS: oxyCODONE HCL 5 MG TABLET PO PRN ×2 (06:28→18:41)
[2023-04-19] MEDS: INSULIN SLIDING SCALE (NOVOLOG) 1 VIAL SQ SCH ×4 (06:30→21:19)
[2023-04-19] MEDS: INSULIN (LEVEMIR) 100 UNITS/ML UNITS SQ SCH ×2 (06:31→21:18)
[2023-04-19] MEDS: TAMSULOSIN HCL 0.4 MG CAP PO SCH (08:52)
[2023-04-19] MEDS: SEVELAMER CARBONATE 800 MG TAB (FP) PO SCH ×3 (08:53→16:41)
[2023-04-19] MEDS: HEPARIN NA (PORCINE) 5,000 UNITS/ML 1ML VIAL SQ SCH ×2 (10:00→21:12)
[2023-04-19] MEDS: TORSEMIDE 100 MG TABLET PO SCH (10:00)
[2023-04-19] MEDS ORDERED: SODIUM CHLORIDE 250 ML IV PRN (10:39)
[2023-04-19 11:23] LABS: HEMATOCRIT 29.1 % (35.4-49); HEMOGLOBIN 9.2 GM/dL (11.7-16.9); MCHC 31.5 g/dl (32.0-35.9); MEAN CELL VOLUME 92.2 fl (80-96); MEAN PLT VOLUME 7.6 fl (7.5-11.1); PLATELET COUNT 163 10^3/uL (134-434); RBC 3.15 M/mm3 (4.00-5.60); RDW 17.7 % (11.9-15.9); WHITE BLOOD COUNT 5.9 K/mm3 (4.0-10.0)
[2023-04-19 11:24] LABS: CHLORIDE 99 mmol/L (98-107); POTASSIUM 4.8 mmol/L (3.5-5.1); SODIUM 137 mmol/L (136-145)
[2023-04-19 11:26] LABS: CALCIUM 7.6 mg/dL (8.5-10.1)
[2023-04-19 11:27] LABS: ANION GAP 11 MMOL/L (8-16); BLOOD UREA NITROGEN 60.4 mg/dL (7-18); CO2 27 mmol/L (21-32); GLUCOSE,RANDOM 129 mg/dL (74-106)
[2023-04-19 11:30] LABS: SGOT/AST 10 U/L (15-37); SGPT/ALT 24 U/L (13-61)
[2023-04-19] MEDS ORDERED: EPOETIN ALFA-EPBX 10,000 UNIT/ML VIAL SQ ONE (11:30)
[2023-04-19 11:32] LABS: BILIRUBIN,TOTAL 0.7 mg/dL (0.2-1); TOT PROT 7.3 g/dl (6.4-8.2)
[2023-04-19 11:33] LABS: ALK PHOS 95 U/L (45-117)
[2023-04-19 11:34] LABS: CREATININE 8.8 mg/dL (0.55-1.3)
[2023-04-19] MEDS: LISINOPRIL 20 MG TABLET PO SCH (13:02)
[2023-04-19] MEDS: NIFEdipine E.R. 30 MG TABLET PO SCH (13:03)
[2023-04-19] MEDS: VITAMIN B COMP W-C 1 EA TABLET (NEPHRO-VITE) PO SCH (13:04)
[2023-04-19] MEDS: ASPIRIN 81 MG CHEWABLE TABLETS PO SCH (13:04)
[2023-04-19] MEDS: CALCIUM CARBONATE 650 MG TABLET PO SCH ×2 (13:05→21:15)
[2023-04-19 14:08] LABS: BODY FLUID ALBUMIN 1.9 g/dL (Not Estab.)
[2023-04-19] MEDS: ATORVASTATIN CA 40 MG TABLET (FP) PO SCH (21:13)
[2023-04-19] MEDS: traZODone HCL 50 MG TABLET (FP) PO PRN (21:14)
[2023-04-20] MEDS: oxyCODONE HCL 5 MG TABLET PO PRN ×3 (03:27→21:19)
[2023-04-20] MEDS: INSULIN SLIDING SCALE (NOVOLOG) 1 VIAL SQ SCH ×4 (06:28→23:11)
[2023-04-20] MEDS: INSULIN (LEVEMIR) 100 UNITS/ML UNITS SQ SCH ×2 (06:49→21:11)
[2023-04-20] MEDS: TAMSULOSIN HCL 0.4 MG CAP PO SCH (08:35)
[2023-04-20] MEDS: SEVELAMER CARBONATE 800 MG TAB (FP) PO SCH ×3 (08:35→17:02)
[2023-04-20] MEDS: VITAMIN B COMP W-C 1 EA TABLET (NEPHRO-VITE) PO SCH (09:05)
[2023-04-20] MEDS: ASPIRIN 81 MG CHEWABLE TABLETS PO SCH (09:05)
[2023-04-20] MEDS: CALCIUM CARBONATE 650 MG TABLET PO SCH ×2 (09:05→21:07)
[2023-04-20] MEDS: LISINOPRIL 20 MG TABLET PO SCH (09:05)
[2023-04-20] MEDS: NIFEdipine E.R. 30 MG TABLET PO SCH (09:06)
[2023-04-20] MEDS: HEPARIN NA (PORCINE) 5,000 UNITS/ML 1ML VIAL SQ SCH ×2 (09:06→21:07)
[2023-04-20] MEDS: TORSEMIDE 100 MG TABLET PO SCH (09:06)
[2023-04-20] MEDS: ATORVASTATIN CA 40 MG TABLET (FP) PO SCH (21:06)
[2023-04-20] MEDS: traZODone HCL 50 MG TABLET (FP) PO PRN (21:07)
[2023-04-21] MEDS: INSULIN (LEVEMIR) 100 UNITS/ML UNITS SQ SCH (06:42)
[2023-04-21] MEDS: INSULIN SLIDING SCALE (NOVOLOG) 1 VIAL SQ SCH ×3 (06:43→16:44)
[2023-04-21 07:42] VITALS: RESP 16
[2023-04-21] MEDS: TAMSULOSIN HCL 0.4 MG CAP PO SCH (08:05)
[2023-04-21] MEDS: oxyCODONE HCL 5 MG TABLET PO PRN (08:05)
[2023-04-21] MEDS: SEVELAMER CARBONATE 800 MG TAB (FP) PO SCH ×3 (08:05→16:43)
[2023-04-21 08:29] LABS: CHLORIDE 101 mmol/L (98-107); POTASSIUM 5.1 mmol/L (3.5-5.1); SODIUM 137 mmol/L (136-145)
[2023-04-21 08:36] LABS: BLOOD UREA NITROGEN 67.9 mg/dL (7-18); CALCIUM 7.9 mg/dL (8.5-10.1)
[2023-04-21 08:37] LABS: GLUCOSE,RANDOM 84 mg/dL (74-106)
[2023-04-21 08:39] LABS: ANION GAP 8 MMOL/L (8-16); CO2 28 mmol/L (21-32)
[2023-04-21 08:41] LABS: CREATININE 9.1 mg/dL (0.55-1.3)
[2023-04-21] MEDS: HEPARIN NA (PORCINE) 5,000 UNITS/ML 1ML VIAL SQ SCH (09:22)
[2023-04-21] MEDS: NIFEdipine E.R. 30 MG TABLET PO SCH (09:22)
[2023-04-21] MEDS: TORSEMIDE 100 MG TABLET PO SCH (09:22)
[2023-04-21] MEDS: CALCIUM CARBONATE 650 MG TABLET PO SCH (09:22)
[2023-04-21] MEDS: ASPIRIN 81 MG CHEWABLE TABLETS PO SCH (09:22)
[2023-04-21] MEDS: LISINOPRIL 20 MG TABLET PO SCH (09:22)
[2023-04-21] MEDS: VITAMIN B COMP W-C 1 EA TABLET (NEPHRO-VITE) PO SCH (09:22)
[2023-04-21] MEDS ORDERED: SODIUM CHLORIDE 250 ML IV PRN (11:52)
[2023-04-21 17:55] VITALS: BP 137/67; PULSE 75; TEMP 98.2
[2023-04-22] MEDS ORDERED: EPOETIN ALFA-EPBX 10,000 UNIT/ML VIAL SQ ONE (11:52)
== END 2023-04-21 21:19 | disposition home or self-care (01) | DRG 291 ==
LOC: JER 12:39 → JERBED 14:56 → J4S 19:41 → OBSVTOIN 04-14 13:48
PROVIDERS: ADMIT Internal Medicine; ATTEND Internal Medicine
PROC: 5A1D70Z Performance of Urinary Filtration, Intermittent, Less than 6 Hours Per Day (ICD-10-PCS; 2023-04-15)
PROC: 0W9B3ZZ Drainage of Left Pleural Cavity, Percutaneous Approach (ICD-10-PCS; principal; 2023-04-17)
PROC: 5A1D70Z Performance of Urinary Filtration, Intermittent, Less than 6 Hours Per Day (ICD-10-PCS; 2023-04-17)
PROC: 5A1D70Z Performance of Urinary Filtration, Intermittent, Less than 6 Hours Per Day (ICD-10-PCS; 2023-04-19)
DX: I13.2 Hypertensive heart and chronic kidney disease with heart failure and with stage 5 chronic kidney disease, or end stage renal disease (principal); N18.6 End stage renal disease; L97.429 Non-pressure chronic ulcer of left heel and midfoot with unspecified severity; J90 Pleural effusion, not elsewhere classified; M86.672 Other chronic osteomyelitis, left ankle and foot; E87.70 Fluid overload, unspecified; I50.32 Chronic diastolic (congestive) heart failure; E78.5 Hyperlipidemia, unspecified; I25.10 Atherosclerotic heart disease of native coronary artery without angina pectoris; E11.69 Type 2 diabetes mellitus with other specified complication; R09.02 Hypoxemia; E11.621 Type 2 diabetes mellitus with foot ulcer; K57.90 Diverticulosis of intestine, part unspecified, without perforation or abscess without bleeding; E87.5 Hyperkalemia; N40.0 Benign prostatic hyperplasia without lower urinary tract symptoms; G47.00 Insomnia, unspecified; E11.51 Type 2 diabetes mellitus with diabetic peripheral angiopathy without gangrene; E11.65 Type 2 diabetes mellitus with hyperglycemia; E11.22 Type 2 diabetes mellitus with diabetic chronic kidney disease; Z99.2 Dependence on renal dialysis; Z95.5 Presence of coronary angioplasty implant and graft; Z89.422 Acquired absence of other left toe(s)
CPT/HCPCS: 0241U-QW; 36415; 71045-TC-FY; 71046-TC-FY; 71250-TC; 76604-TC; 76942; 80048; 80053; 82042; 82150; 82465; 82945; 82962; 83036; 83615; 83735; 83986; 84100; 84157; 84460; 84478; 84484; 85025; 85027; 86704; 86803; 87070; 87075; 87081; 87102; 87116; 87205; 87206; 87210; 87340; 87517; 88108; 88305-TC; 93005; 93010; 94761; 97116-GP; 97161-GP; 99285-25; G0378; J1644; J3370; Q5106

== ENCOUNTER 2023-05-13 12:49 | Observation (INO) | payer OTHER ==
[2023-05-13 14:44] LABS: HEMATOCRIT 31.9 % (35.4-49); HEMOGLOBIN 10.1 GM/dL (11.7-16.9); MCH 29.4 pg (25.7-33.7); MCHC 31.6 g/dl (32.0-35.9); MEAN CELL VOLUME 93.2 fl (80-96); MEAN PLT VOLUME 7.9 fl (7.5-11.1); PLATELET COUNT 180 10^3/uL (134-434); RBC 3.42 M/mm3 (4.00-5.60); RDW 18.5 % (11.9-15.9); WHITE BLOOD COUNT 5.6 K/mm3 (4.0-10.0)
[2023-05-13 14:50] LABS: VENOUS BASE EXCESS -3.6 mmol/L (-2-2); VENOUS O2 SATURATION 57.8 % (70-80); VENOUS PCO2 50.2 mmHg (38-52); VENOUS PH 7.288 (7.310-7.410)
[2023-05-13 15:02] LABS: CHLORIDE 102 mmol/L (98-107); POTASSIUM 5.4 mmol/L (3.5-5.1); SODIUM 137 mmol/L (136-145)
[2023-05-13 15:03] LABS: CALCIUM 8.2 mg/dL (8.5-10.1)
[2023-05-13 15:04] LABS: ALBUMIN 3.5 g/dl (3.4-5.0); ANION GAP 13 mmol/L (4-13); BLOOD UREA NITROGEN 52.6 mg/dL (7-18); CO2 23 mmol/L (21-32); GLUCOSE,RANDOM 299 mg/dL (74-106); MAGNESIUM 1.9 mg/dL (1.8-2.4)
[2023-05-13 15:07] LABS: SGOT/AST 18 U/L (15-37); SGPT/ALT 33 U/L (13-61)
[2023-05-13 15:08] LABS: TOT PROT 8.4 g/dl (6.4-8.2)
[2023-05-13 15:09] LABS: BILIRUBIN,TOTAL 0.7 mg/dL (0.2-1)
[2023-05-13 15:25] LABS: ALK PHOS 133 U/L (45-117); CREATININE 8.8 mg/dL (0.55-1.3)
[2023-05-13] MEDS ORDERED: traZODone HCL 50 MG TABLET (FP) PO PRN (16:15)
[2023-05-13] MEDS: ACETAMINOPHEN 325 MG TABLET (FP) PO PRN (21:39)
[2023-05-13] MEDS: HEPARIN NA (PORCINE) 5,000 UNITS/ML 1ML VIAL SQ SCH (22:16)
[2023-05-13] MEDS: LABETALOL HCL 200 MG, LABETALOL HCL 100 MG PO SCH (22:18)
[2023-05-13] MEDS: BENZOCAINE 20 % GEL TUBE MM PRN (22:39)
[2023-05-14 03:42] VITALS: BMI 28.0
[2023-05-14] MEDS: ACETAMINOPHEN 325 MG TABLET (FP) PO PRN (03:48)
[2023-05-14] MEDS: BENZOCAINE 20 % GEL TUBE MM PRN (03:49)
[2023-05-14] MEDS: HEPARIN NA (PORCINE) 5,000 UNITS/ML 1ML VIAL SQ SCH ×3 (06:38→21:19)
[2023-05-14 09:27] LABS: BASO % 0.8 % (0-2.0); HEMATOCRIT 27.9 % (35.4-49); HEMOGLOBIN 8.9 GM/dL (11.7-16.9); LYMPH % 18.3 % (8-40); MCH 29.7 pg (25.7-33.7); MEAN CELL VOLUME 92.7 fl (80-96); MEAN PLT VOLUME 7.6 fl (7.5-11.1); NEUT % 69.9 % (42.8-82.8); PLATELET COUNT 174 10^3/uL (134-434); RBC 3.01 M/mm3 (4.00-5.60); RDW 18.1 % (11.9-15.9); WHITE BLOOD COUNT 5.3 K/mm3 (4.0-10.0)
[2023-05-14] MEDS: LISINOPRIL 20 MG TABLET PO SCH (09:31)
[2023-05-14] MEDS: TAMSULOSIN HCL 0.4 MG CAP PO SCH (09:31)
[2023-05-14] MEDS: LABETALOL HCL 200 MG, LABETALOL HCL 100 MG PO SCH ×2 (09:31→21:20)
[2023-05-14] MEDS: CLOPIDOGREL BISULFATE 75 MG TABLET (FP) PO SCH (09:32)
[2023-05-14] MEDS: VITAMIN B COMP W-C 1 EA TABLET (NEPHRO-VITE) PO SCH (09:32)
[2023-05-14] MEDS: TORSEMIDE 100 MG TABLET PO SCH (09:34)
[2023-05-14 09:57] LABS: POTASSIUM 4.3 mmol/L (3.5-5.1)
[2023-05-14 10:02] LABS: CALCIUM 7.7 mg/dL (8.5-10.1)
[2023-05-14 10:03] LABS: ALBUMIN 3.2 g/dl (3.4-5.0); BLOOD UREA NITROGEN 37.9 mg/dL (7-18); MAGNESIUM 1.8 mg/dL (1.8-2.4)
[2023-05-14 10:06] LABS: CREATININE 6.7 mg/dL (0.55-1.3); PHOSPHOROUS 2.9 mg/dL (2.5-4.9)
[2023-05-14 10:08] LABS: BILIRUBIN,TOTAL 0.9 mg/dL (0.2-1); TOT PROT 7.8 g/dl (6.4-8.2)
[2023-05-14] MEDS: NIFEdipine E.R 60 MG TABLET PO SCH (13:48)
[2023-05-14] MEDS: INSULIN (NOVOLOG) ASPART 100 UNITS/ML 10ML VIAL SQ SCH (21:09)
[2023-05-14] MEDS ORDERED: INSULIN (LEVEMIR) 100 UNITS/ML UNITS SQ SCH (22:00)
[2023-05-14] MEDS ORDERED: MELATONIN 5 MG TABLETS PO SCH (22:00)
[2023-05-14] MEDS ORDERED: ATORVASTATIN CA 80 MG TABLET (FP) PO SCH (22:00)
[2023-05-15] MEDS: HEPARIN NA (PORCINE) 5,000 UNITS/ML 1ML VIAL SQ SCH ×2 (06:08→13:41)
[2023-05-15] MEDS: INSULIN (NOVOLOG) ASPART 100 UNITS/ML 10ML VIAL SQ SCH ×3 (06:13→16:40)
[2023-05-15] MEDS ORDERED: SODIUM CHLORIDE 250 ML IV PRN ×2 (08:07)
[2023-05-15] MEDS ORDERED: EPOETIN ALFA-EPBX 10,000 UNIT/ML VIAL SQ ONE (09:00)
[2023-05-15] MEDS: TAMSULOSIN HCL 0.4 MG CAP PO SCH (09:36)
[2023-05-15] MEDS: TORSEMIDE 100 MG TABLET PO SCH ×2 (09:37→13:55)
[2023-05-15] MEDS: CLOPIDOGREL BISULFATE 75 MG TABLET (FP) PO SCH ×2 (09:37→13:54)
[2023-05-15] MEDS: NIFEdipine E.R 60 MG TABLET PO SCH ×2 (09:37→13:56)
[2023-05-15] MEDS: VITAMIN B COMP W-C 1 EA TABLET (NEPHRO-VITE) PO SCH ×2 (09:37→13:53)
[2023-05-15] MEDS: LABETALOL HCL 200 MG, LABETALOL HCL 100 MG PO SCH ×2 (09:37→13:54)
[2023-05-15] MEDS: LISINOPRIL 20 MG TABLET PO SCH ×2 (09:37→13:56)
[2023-05-15 10:29] LABS: CHLORIDE 102 mmol/L (98-107); HEMOGLOBIN 8.7 GM/dL (11.7-16.9); MEAN CELL VOLUME 93.5 fl (80-96); MEAN PLT VOLUME 7.8 fl (7.5-11.1); PLATELET COUNT 193 10^3/uL (134-434); POTASSIUM 4.9 mmol/L (3.5-5.1); SODIUM 137 mmol/L (136-145); WHITE BLOOD COUNT 5.8 K/mm3 (4.0-10.0)
[2023-05-15 10:32] LABS: ALBUMIN 3.1 g/dl (3.4-5.0); CALCIUM 7.5 mg/dL (8.5-10.1); GLUCOSE,RANDOM 265 mg/dL (74-106)
[2023-05-15 10:35] LABS: SGOT/AST 16 U/L (15-37); SGPT/ALT 30 U/L (13-61)
[2023-05-15 10:36] LABS: TOT PROT 7.3 g/dl (6.4-8.2)
[2023-05-15 10:37] LABS: BILIRUBIN,TOTAL 0.7 mg/dL (0.2-1)
[2023-05-15 10:38] LABS: ALK PHOS 112 U/L (45-117)
[2023-05-15 10:40] LABS: ANION GAP 7 mmol/L (4-13); CO2 28 mmol/L (21-32); CREATININE 8.1 mg/dL (0.55-1.3)
[2023-05-15 11:03] VITALS: RESP 18
[2023-05-15 15:40] VITALS: BP 169/71; PULSE 87; TEMP 98.8
== END 2023-05-15 17:01 ==
LOC: JER 12:49 → JERBED 14:59 → UNDOADMOB 14:59 → J8W 18:39 → JERBED 18:39 → OBSVTOIN 05-15 10:14 → INTOOBSV 05-15 10:14 → J8W 05-15 10:33 → JERBED 05-15 10:33
PROVIDERS: ADMIT Internal Medicine; ATTEND Nurse Practitioner Family
PROC: 3E023GC Introduction of Other Therapeutic Substance into Muscle, Percutaneous Approach (ICD-10-PCS; principal; 2023-05-15)
PROC: 3E013VG Introduction of Insulin into Subcutaneous Tissue, Percutaneous Approach (ICD-10-PCS; 2023-05-15)
DX: I12.0 Hypertensive chronic kidney disease with stage 5 chronic kidney disease or end stage renal disease (principal); R09.02 Hypoxemia; N18.6 End stage renal disease; Z99.2 Dependence on renal dialysis; Z91.158 Patient's noncompliance with renal dialysis for other reason; D64.9 Anemia, unspecified; Z99.81 Dependence on supplemental oxygen; I25.10 Atherosclerotic heart disease of native coronary artery without angina pectoris; I73.9 Peripheral vascular disease, unspecified; I11.0 Hypertensive heart disease with heart failure; I50.9 Heart failure, unspecified
CPT/HCPCS: 0241U-QW; 36415; 71045-TC-FY; 80053; 82803; 82962; 83735; 83880; 84100; 84484; 85025; 85027; 87340; 87635; 93005; 93010; 96372; 97116-GP; 97161-GP; 99285-25; G0378; J1644; Q5106

== ENCOUNTER 2023-07-14 08:41 | Observation (INO) | payer OTHER ==
[2023-07-14] MEDS ORDERED: ACETAMINOPHEN 1000 MG/100 ML BAG IVPB ONE (10:11)
[2023-07-14] MEDS ORDERED: ACETAMINOPHEN INJECTION 100 ML IVPB ONE (10:14)
[2023-07-14 10:49] LABS: BASO % 0.8 % (0-2.0); EOS % 2.8 % (0-4.5); MCH 29.3 pg (25.7-33.7); MCHC 32.3 g/dl (32.0-35.9); MEAN CELL VOLUME 90.7 fl (80-96); MEAN PLT VOLUME 8.2 fl (7.5-11.1); MONO % 9.6 % (3.8-10.2); NEUT % 68.8 % (42.8-82.8); PLATELET COUNT 164 10^3/uL (134-434); RBC 3.42 M/mm3 (4.00-5.60); RDW 15.7 % (11.9-15.9)
[2023-07-14 10:55] LABS: CHLORIDE 99 mmol/L (98-107); SODIUM 135 mmol/L (136-145)
[2023-07-14 11:00] LABS: ALBUMIN 3.6 g/dl (3.4-5.0); CALCIUM 8.4 mg/dL (8.5-10.1)
[2023-07-14 11:01] LABS: CO2 16 mmol/L (21-32); GLUCOSE,RANDOM 127 mg/dL (74-106); MAGNESIUM 2.1 mg/dL (1.8-2.4)
[2023-07-14 11:03] LABS: SGPT/ALT 53 U/L (13-61)
[2023-07-14 11:04] LABS: PHOSPHOROUS 8.1 mg/dL (2.5-4.9)
[2023-07-14 11:05] LABS: BILIRUBIN,TOTAL 0.7 mg/dL (0.2-1); TOT PROT 8.4 g/dl (6.4-8.2)
[2023-07-14 11:06] LABS: ALK PHOS 122 U/L (45-117); SGOT/AST 10 U/L (15-37)
[2023-07-14 11:07] LABS: ANION GAP 19 mmol/L (4-13); BLOOD UREA NITROGEN 140.8 mg/dL (7-18); CREATININE 13.5 mg/dL (0.55-1.3); POTASSIUM 6.6 mmol/L (3.5-5.1)
[2023-07-14] MEDS ORDERED: CALCIUM GLUCONATE 10% - 1,000 MG/10 ML VIAL IVPUSH ONE (11:43)
[2023-07-14] MEDS ORDERED: INSULIN REGULAR HUMAN 100 UNITS/ML *VIAL IVPUSH ONE (11:44)
[2023-07-14] MEDS ORDERED: DEXTROSE 50%-WATER - 25 GM/50 ML VIAL IVPUSH ONE ×2 (11:45→11:46)
[2023-07-14] MEDS ORDERED: ALBUTEROL SO4 0.083% IH SOL 2.5 MG/3 ML VIAL.NEB. NEB ONE ×2 (11:45→12:20)
[2023-07-14] MEDS ORDERED: SODIUM CHLORIDE 250 ML IV PRN (11:55)
[2023-07-14] MEDS ORDERED: DEXTROSE 50%-WATER 25 GM/50 ML DISP.SYRIN ONE (12:20)
[2023-07-14] MEDS ORDERED: CALCIUM GLUCONATE 10% - 1,000 MG/10 ML VIAL ONE (12:20)
[2023-07-14] MEDS ORDERED: SODIUM ZIRCONIUM CYCLOSILICATE (LOKELMA) 5 GM PACKET PO ONE (12:22)
[2023-07-14] MEDS ORDERED: traZODone HCL 50 MG TABLET (FP) PO PRN (13:34)
[2023-07-14] MEDS ORDERED: SODIUM ZIRCONIUM CYCLOSILICATE (LOKELMA) 10 GM PACKET ONE (13:39)
[2023-07-14] MEDS ORDERED: HEPARIN NA (PORCINE) 5,000 UNITS/ML 1ML VIAL ONE ×2 (14:21→22:25)
[2023-07-14] MEDS: HEPARIN NA (PORCINE) 5,000 UNITS/ML 1ML VIAL SQ SCH ×2 (14:24→22:32)
[2023-07-14] MEDS ORDERED: EPOETIN ALFA-EPBX 10,000 UNIT/ML VIAL SQ ONE (17:00)
[2023-07-14] MEDS: INSULIN ASPART SLIDING SCALE (NOVOLOG) 1 VIAL SQ SCH ×2 (19:47→22:33)
[2023-07-14] MEDS ORDERED: MELATONIN 5 MG TABLETS ONE (22:25)
[2023-07-14] MEDS ORDERED: ATORVASTATIN CA 80 MG TABLET (FP) ONE (22:25)
[2023-07-14] MEDS: MELATONIN 5 MG TABLETS PO SCH (22:33)
[2023-07-14] MEDS: ATORVASTATIN CA 80 MG TABLET (FP) PO SCH (22:33)
[2023-07-15] MEDS: HEPARIN NA (PORCINE) 5,000 UNITS/ML 1ML VIAL SQ SCH ×3 (08:36→23:04)
[2023-07-15] MEDS ORDERED: INSULIN (NOVOLOG) ASPART 100 UNITS/ML 10ML VIAL ONE ×2 (08:38→18:48)
[2023-07-15] MEDS: INSULIN ASPART SLIDING SCALE (NOVOLOG) 1 VIAL SQ SCH ×4 (08:42→22:53)
[2023-07-15] MEDS: TAMSULOSIN HCL 0.4 MG CAP PO SCH (08:50)
[2023-07-15] MEDS: CLOPIDOGREL BISULFATE 75 MG TABLET (FP) PO SCH (10:01)
[2023-07-15 14:17] LABS: CHLORIDE 101 mmol/L (98-107); POTASSIUM 4.6 mmol/L (3.5-5.1); SODIUM 134 mmol/L (136-145)
[2023-07-15 14:21] LABS: ANION GAP 11 mmol/L (4-13); CALCIUM 7.8 mg/dL (8.5-10.1); CO2 23 mmol/L (21-32); GLUCOSE,RANDOM 147 mg/dL (74-106)
[2023-07-15 14:28] LABS: BLOOD UREA NITROGEN 73.7 mg/dL (7-18); CREATININE 9.2 mg/dL (0.55-1.3)
[2023-07-15] MEDS ORDERED: LABETALOL HCL 200 MG TABLET (FP) ONE ×2 (18:57→22:54)
[2023-07-15] MEDS: LABETALOL HCL 200 MG TABLET (FP) PO SCH ×2 (18:57→23:04)
[2023-07-15] MEDS ORDERED: LABETALOL HCL 100 MG TABLET (FP) PO SCH (22:00)
[2023-07-15] MEDS ORDERED: ATORVASTATIN CA 80 MG TABLET (FP) ONE (22:55)
[2023-07-15] MEDS ORDERED: HEPARIN NA (PORCINE) 5,000 UNITS/ML 1ML VIAL ONE (22:55)
[2023-07-15] MEDS ORDERED: MELATONIN 5 MG TABLETS ONE (22:55)
[2023-07-15] MEDS: MELATONIN 5 MG TABLETS PO SCH (23:04)
[2023-07-15] MEDS: ATORVASTATIN CA 80 MG TABLET (FP) PO SCH (23:04)
[2023-07-16 01:36] VITALS: RESP 18
[2023-07-16 01:50] VITALS: BMI 27.3
[2023-07-16] MEDS: HEPARIN NA (PORCINE) 5,000 UNITS/ML 1ML VIAL SQ SCH ×2 (06:50→14:29)
[2023-07-16] MEDS: INSULIN ASPART SLIDING SCALE (NOVOLOG) 1 VIAL SQ SCH ×2 (06:53→12:49)
[2023-07-16] MEDS ORDERED: traZODone HCL 50 MG TABLET (FP) PO PRN (07:53)
[2023-07-16] MEDS ORDERED: TORSEMIDE 20 MG TABLET (FP) PO SCH (10:00)
[2023-07-16] MEDS ORDERED: SODIUM CHLORIDE 250 ML IV PRN (10:03)
[2023-07-16] MEDS: TAMSULOSIN HCL 0.4 MG CAP PO SCH (10:08)
[2023-07-16] MEDS: LABETALOL HCL 200 MG TABLET (FP) PO SCH (10:08)
[2023-07-16] MEDS: CLOPIDOGREL BISULFATE 75 MG TABLET (FP) PO SCH (10:08)
[2023-07-16 13:22] VITALS: TEMP 97.2
[2023-07-16 13:23] VITALS: BP 157/82; PULSE 81
[2023-07-17] MEDS ORDERED: EPOETIN ALFA-EPBX 4,000 UNIT/ML VIAL SQ ONE (10:03)
== END 2023-07-16 14:29 | disposition home or self-care (01) ==
LOC: JER 08:41 → UNDOADMOB 09:51 → INTOOBSV 09:51 → JERBED 09:51 → J4W 07-16 03:28
PROVIDERS: ADMIT Internal Medicine; ATTEND Internal Medicine
PROC: 3E0F7GC Introduction of Other Therapeutic Substance into Respiratory Tract, Via Natural or Artificial Opening (ICD-10-PCS; principal; 2023-07-14)
PROC: 3E033NZ Introduction of Analgesics, Hypnotics, Sedatives into Peripheral Vein, Percutaneous Approach (ICD-10-PCS; 2023-07-14)
PROC: 3E033VG Introduction of Insulin into Peripheral Vein, Percutaneous Approach (ICD-10-PCS; 2023-07-14)
PROC: 3E033GC Introduction of Other Therapeutic Substance into Peripheral Vein, Percutaneous Approach (ICD-10-PCS; 2023-07-14)
DX: N18.6 End stage renal disease (principal); I11.0 Hypertensive heart disease with heart failure; E87.5 Hyperkalemia; D64.9 Anemia, unspecified; I25.10 Atherosclerotic heart disease of native coronary artery without angina pectoris; R09.02 Hypoxemia; Z99.81 Dependence on supplemental oxygen; R53.1 Weakness; Z95.5 Presence of coronary angioplasty implant and graft; Z99.2 Dependence on renal dialysis; E11.9 Type 2 diabetes mellitus without complications; K57.90 Diverticulosis of intestine, part unspecified, without perforation or abscess without bleeding; F14.90 Cocaine use, unspecified, uncomplicated; Z91.158 Patient's noncompliance with renal dialysis for other reason; Z86.14 Personal history of Methicillin resistant Staphylococcus aureus infection; Z87.891 Personal history of nicotine dependence
CPT/HCPCS: 36415; 70450-TC; 71045-TC-FY; 72125-TC; 80048; 80053; 82962; 83735; 84100; 84484; 85025; 86803; 87340; 93005; 93010; 94640; 96361; 96374; 96375; 99285-25; G0378; J1644; Q5106

== ENCOUNTER 2023-07-18 14:43 | Observation (INO) | payer OTHER ==
[2023-07-18 15:01] VITALS: BMI 27.2
[2023-07-18 16:59] LABS: BASO % 0.6 % (0-2.0); EOS % 3.8 % (0-4.5); HEMATOCRIT 31.3 % (35.4-49); HEMOGLOBIN 9.9 GM/dL (11.7-16.9); LYMPH % 17.9 % (8-40); MCHC 31.6 g/dl (32.0-35.9); MEAN CELL VOLUME 91.9 fl (80-96); MEAN PLT VOLUME 8.2 fl (7.5-11.1); MONO % 7.8 % (3.8-10.2); NEUT % 69.9 % (42.8-82.8); PLATELET COUNT 217 10^3/uL (134-434); RBC 3.41 M/mm3 (4.00-5.60); RDW 15.7 % (11.9-15.9); WHITE BLOOD COUNT 6.6 K/mm3 (4.0-10.0)
[2023-07-18 17:20] LABS: CHLORIDE 100 mmol/L (98-107); POTASSIUM 5.8 mmol/L (3.5-5.1); SODIUM 137 mmol/L (136-145)
[2023-07-18 17:25] LABS: CALCIUM 7.9 mg/dL (8.5-10.1)
[2023-07-18 17:26] LABS: ALBUMIN 3.7 g/dl (3.4-5.0); ANION GAP 16 mmol/L (4-13); CO2 21 mmol/L (21-32); GLUCOSE,RANDOM 234 mg/dL (74-106)
[2023-07-18 17:28] LABS: SGPT/ALT 47 U/L (13-61)
[2023-07-18 17:29] LABS: PHOSPHOROUS 5.3 mg/dL (2.5-4.9); SGOT/AST 10 U/L (15-37)
[2023-07-18 17:30] LABS: BILIRUBIN,TOTAL 0.6 mg/dL (0.2-1); TOT PROT 8.6 g/dl (6.4-8.2)
[2023-07-18] MEDS ORDERED: SODIUM ZIRCONIUM CYCLOSILICATE (LOKELMA) 5 GM PACKET PO ONE (17:30)
[2023-07-18 17:32] LABS: ALK PHOS 117 U/L (45-117)
[2023-07-18] MEDS ORDERED: INSULIN REGULAR HUMAN 100 UNITS/ML *VIAL IVPUSH ONE (17:32)
[2023-07-18] MEDS ORDERED: CALCIUM GLUCONATE 10% - 1,000 MG/10 ML VIAL IVPUSH ONE (17:32)
[2023-07-18] MEDS ORDERED: DEXTROSE 50%-WATER 25 GM/50 ML DISP.SYRIN IVPUSH PRN (17:32)
[2023-07-18 17:35] LABS: BLOOD UREA NITROGEN 100.7 mg/dL (7-18); CREATININE 13.3 mg/dL (0.55-1.3)
[2023-07-18] MEDS ORDERED: DEXTROSE 50%-WATER 25 GM/50 ML DISP.SYRIN ONE (18:25)
[2023-07-18] MEDS ORDERED: SODIUM ZIRCONIUM CYCLOSILICATE (LOKELMA) 10 GM PACKET ONE ×2 (18:25→20:47)
[2023-07-18] MEDS ORDERED: CALCIUM GLUC IN NACL, ISO-OSM 1 GM/50 ML BAG IVPB ONE (18:25)
[2023-07-18 18:26] LABS: ERYTHROCYTE SEDIMENTATION RATE 30 mm/hr (0-20)
[2023-07-18] MEDS: SODIUM ZIRCONIUM CYCLOSILICATE (LOKELMA) 5 GM PACKET PO SCH ×2 (18:35→21:51)
[2023-07-18] MEDS ORDERED: FUROSEMIDE 40 MG/4 ML INJECTABLE VIAL IVPUSH ONE (19:30)
[2023-07-18] MEDS ORDERED: FUROSEMIDE 40 MG/4 ML INJECTABLE VIAL ONE (20:47)
[2023-07-18] MEDS ORDERED: ACETAMINOPHEN 1000 MG/100 ML BAG IVPB PRN (22:59)
[2023-07-18] MEDS ORDERED: LABETALOL HCL 200 MG TABLET (FP) PO SCH (23:15)
[2023-07-18] MEDS: traZODone HCL 50 MG TABLET (FP) PO PRN (23:26)
[2023-07-18] MEDS ORDERED: LABETALOL HCL 100 MG TABLET (FP) ONE (23:31)
[2023-07-19] MEDS: SODIUM ZIRCONIUM CYCLOSILICATE (LOKELMA) 5 GM PACKET PO SCH ×2 (00:59→06:09)
[2023-07-19] MEDS: HEPARIN NA (PORCINE) 5,000 UNITS/ML 1ML VIAL SQ SCH ×3 (06:12→23:51)
[2023-07-19] MEDS ORDERED: SODIUM CHLORIDE 250 ML IV PRN (09:33)
[2023-07-19 10:03] LABS: HEMATOCRIT 28.1 % (35.4-49); MCH 28.9 pg (25.7-33.7); MCHC 31.9 g/dl (32.0-35.9); MEAN CELL VOLUME 90.6 fl (80-96); MEAN PLT VOLUME 7.7 fl (7.5-11.1); PLATELET COUNT 214 10^3/uL (134-434); RBC 3.11 M/mm3 (4.00-5.60); RDW 15.5 % (11.9-15.9); WHITE BLOOD COUNT 5.6 K/mm3 (4.0-10.0)
[2023-07-19 10:19] LABS: CHLORIDE 103 mmol/L (98-107); POTASSIUM 5.4 mmol/L (3.5-5.1); SODIUM 137 mmol/L (136-145)
[2023-07-19 10:25] LABS: ANION GAP 15 mmol/L (4-13); CALCIUM 7.7 mg/dL (8.5-10.1); CO2 20 mmol/L (21-32); GLUCOSE,RANDOM 145 mg/dL (74-106); MAGNESIUM 2.1 mg/dL (1.8-2.4)
[2023-07-19 10:29] LABS: PHOSPHOROUS 5.5 mg/dL (2.5-4.9)
[2023-07-19 10:41] LABS: CREATININE 13.5 mg/dL (0.55-1.3)
[2023-07-19] MEDS ORDERED: EPOETIN ALFA-EPBX 10,000 UNIT/ML VIAL SQ ONE (11:00)
[2023-07-19] MEDS: TORSEMIDE 100 MG TABLET PO SCH (13:10)
[2023-07-19] MEDS: TAMSULOSIN HCL 0.4 MG CAP PO SCH (13:11)
[2023-07-19] MEDS: LABETALOL HCL 100 MG TABLET (FP) PO SCH ×2 (13:45→22:02)
[2023-07-19] MEDS: VITAMIN B COMP W-C 1 EA TABLET (NEPHRO-VITE) PO SCH (13:45)
[2023-07-19] MEDS: LISINOPRIL 20 MG TABLET PO SCH (13:47)
[2023-07-19] MEDS: NIFEdipine E.R 60 MG TABLET PO SCH (13:47)
[2023-07-19] MEDS: CLOPIDOGREL BISULFATE 75 MG TABLET (FP) PO SCH (13:48)
[2023-07-19] MEDS: LOPERAMIDE HCL 2 MG CAPSULE PO PRN (17:07)
[2023-07-19] MEDS: traZODone HCL 50 MG TABLET (FP) PO PRN (22:02)
[2023-07-19] MEDS: MELATONIN 5 MG TABLETS PO SCH (22:10)
[2023-07-19] MEDS: ATORVASTATIN CA 80 MG TABLET (FP) PO SCH (22:11)
[2023-07-20] MEDS: LOPERAMIDE HCL 2 MG CAPSULE PO PRN (02:10)
[2023-07-20] MEDS: HEPARIN NA (PORCINE) 5,000 UNITS/ML 1ML VIAL SQ SCH ×3 (06:08→21:52)
[2023-07-20] MEDS ORDERED: DEXTROSE 50%-WATER - 25 GM/50 ML VIAL IVPUSH PRN (11:46)
[2023-07-20] MEDS: TAMSULOSIN HCL 0.4 MG CAP PO SCH (11:50)
[2023-07-20] MEDS: LISINOPRIL 20 MG TABLET PO SCH (11:50)
[2023-07-20] MEDS: LABETALOL HCL 100 MG TABLET (FP) PO SCH ×2 (11:50→21:53)
[2023-07-20] MEDS: VITAMIN B COMP W-C 1 EA TABLET (NEPHRO-VITE) PO SCH (11:51)
[2023-07-20] MEDS: NIFEdipine E.R 60 MG TABLET PO SCH (11:51)
[2023-07-20] MEDS: TORSEMIDE 100 MG TABLET PO SCH (11:52)
[2023-07-20] MEDS: CLOPIDOGREL BISULFATE 75 MG TABLET (FP) PO SCH (11:52)
[2023-07-20 12:55] LABS: CHLORIDE 102 mmol/L (98-107); POTASSIUM 4.5 mmol/L (3.5-5.1); SODIUM 138 mmol/L (136-145)
[2023-07-20 12:57] LABS: ANION GAP 11 mmol/L (4-13); CO2 26 mmol/L (21-32); GLUCOSE,RANDOM 208 mg/dL (74-106)
[2023-07-20 13:08] LABS: BLOOD UREA NITROGEN 60.6 mg/dL (7-18); CREATININE 9.1 mg/dL (0.55-1.3)
[2023-07-20] MEDS ORDERED: INSULIN (NOVOLOG) ASPART 100 UNITS/ML 10ML VIAL SQ SCH (16:30)
[2023-07-20] MEDS: INSULIN (NOVOLOG) ASPART 100 UNITS/ML 10ML VIAL SQ SCH ×2 (17:13→21:54)
[2023-07-20] MEDS ORDERED: INSULIN (NOVOLOG) ASPART 100 UNITS/ML 10ML VIAL ONE (21:31)
[2023-07-20] MEDS: MELATONIN 5 MG TABLETS PO SCH (21:52)
[2023-07-20] MEDS: ATORVASTATIN CA 80 MG TABLET (FP) PO SCH (21:53)
[2023-07-21] MEDS: INSULIN (NOVOLOG) ASPART 100 UNITS/ML 10ML VIAL SQ SCH ×2 (06:25→11:13)
[2023-07-21] MEDS: HEPARIN NA (PORCINE) 5,000 UNITS/ML 1ML VIAL SQ SCH ×2 (06:25→14:25)
[2023-07-21] MEDS ORDERED: INSULIN (NOVOLOG) ASPART 100 UNITS/ML 10ML VIAL ONE (08:26)
[2023-07-21 09:33] LABS: HEMATOCRIT 28.9 % (35.4-49); HEMOGLOBIN 9.1 GM/dL (11.7-16.9); MCH 29.1 pg (25.7-33.7); MCHC 31.6 g/dl (32.0-35.9); MEAN CELL VOLUME 92.2 fl (80-96); MEAN PLT VOLUME 7.5 fl (7.5-11.1); PLATELET COUNT 208 10^3/uL (134-434); RBC 3.14 M/mm3 (4.00-5.60); RDW 15.6 % (11.9-15.9); WHITE BLOOD COUNT 5.6 K/mm3 (4.0-10.0)
[2023-07-21] MEDS ORDERED: BENZOCAINE/MENTH/CETYLPYRD CL 1 EACH LOZENGE MM PRN (09:35)
[2023-07-21 09:53] LABS: CHLORIDE 102 mmol/L (98-107); POTASSIUM 4.6 mmol/L (3.5-5.1); SODIUM 139 mmol/L (136-145)
[2023-07-21] MEDS ORDERED: CLOTRIMAZOLE 1% CREAM TP SCH (10:00)
[2023-07-21 10:10] LABS: CALCIUM 8.2 mg/dL (8.5-10.1)
[2023-07-21 10:12] LABS: ANION GAP 15 mmol/L (4-13); BLOOD UREA NITROGEN 68.4 mg/dL (7-18); CO2 22 mmol/L (21-32); GLUCOSE,RANDOM 169 mg/dL (74-106)
[2023-07-21 10:18] LABS: CREATININE 10.6 mg/dL (0.55-1.3)
[2023-07-21] MEDS: LABETALOL HCL 100 MG TABLET (FP) PO SCH (11:05)
[2023-07-21] MEDS: CLOPIDOGREL BISULFATE 75 MG TABLET (FP) PO SCH (11:06)
[2023-07-21] MEDS: TORSEMIDE 100 MG TABLET PO SCH (11:06)
[2023-07-21] MEDS: VITAMIN B COMP W-C 1 EA TABLET (NEPHRO-VITE) PO SCH (11:06)
[2023-07-21] MEDS: TAMSULOSIN HCL 0.4 MG CAP PO SCH (11:06)
[2023-07-21] MEDS: NIFEdipine E.R 60 MG TABLET PO SCH (11:06)
[2023-07-21] MEDS: LISINOPRIL 20 MG TABLET PO SCH (11:06)
[2023-07-21 14:23] VITALS: BP 132/58; PULSE 76; RESP 20; TEMP 97.4
== END 2023-07-21 16:15 | disposition home or self-care (01) ==
LOC: JER 14:43 → INTOOBSV 18:23 → JERBED 18:23 → UNDOADMOB 18:23 → JERBED 21:31 → J7W 07-19 00:03 → JERBED 07-19 00:03
PROVIDERS: ADMIT Internal Medicine; ATTEND Nurse Practitioner
PROC: 3E033NZ Introduction of Analgesics, Hypnotics, Sedatives into Peripheral Vein, Percutaneous Approach (ICD-10-PCS; principal; 2023-07-18)
PROC: 3E033GC Introduction of Other Therapeutic Substance into Peripheral Vein, Percutaneous Approach (ICD-10-PCS; 2023-07-18)
PROC: 3E0337Z Introduction of Electrolytic and Water Balance Substance into Peripheral Vein, Percutaneous Approach (ICD-10-PCS; 2023-07-18)
PROC: 3E013VG Introduction of Insulin into Subcutaneous Tissue, Percutaneous Approach (ICD-10-PCS; 2023-07-18)
PROC: 3E033VG Introduction of Insulin into Peripheral Vein, Percutaneous Approach (ICD-10-PCS; 2023-07-18)
DX: E11.22 Type 2 diabetes mellitus with diabetic chronic kidney disease (principal); I13.2 Hypertensive heart and chronic kidney disease with heart failure and with stage 5 chronic kidney disease, or end stage renal disease; N18.6 End stage renal disease; Z99.2 Dependence on renal dialysis; Z91.158 Patient's noncompliance with renal dialysis for other reason; Z99.81 Dependence on supplemental oxygen
CPT/HCPCS: 0241U-QW; 36415; 71045-TC-FY; 80048; 80053; 82962; 83735; 84100; 84132; 84484; 85025; 85027; 85651; 86140; 87045; 87046; 87186; 87324; 87425; 87449; 87798; 93005; 93010; 96361; 96372; 96374; 96375; 99285-25; G0378; J1644; Q5106

== ENCOUNTER 2023-09-09 13:26 | Observation (INO) | payer OTHER ==
[2023-09-09] MEDS ORDERED: ACETAMINOPHEN 325 MG TABLET (FP) ONE (14:29)
[2023-09-09] MEDS: ACETAMINOPHEN 500 MG TABLET (FP) PO ONE (14:40)
[2023-09-09 14:53] LABS: BASO % 0.7 % (0-2.0); EOS % 3.4 % (0-4.5); HEMATOCRIT 32.7 % (35.4-49); HEMOGLOBIN 10.5 GM/dL (11.7-16.9); LYMPH % 13.9 % (8-40); MCH 30.2 pg (25.7-33.7); MCHC 32.2 g/dl (32.0-35.9); MEAN CELL VOLUME 93.7 fl (80-96); MEAN PLT VOLUME 7.8 fl (7.5-11.1); MONO % 8.2 % (3.8-10.2); NEUT % 73.8 % (42.8-82.8); PLATELET COUNT 251 10^3/uL (134-434); RBC 3.49 M/mm3 (4.00-5.60); RDW 16.6 % (11.9-15.9); WHITE BLOOD COUNT 7.1 K/mm3 (4.0-10.0)
[2023-09-09 15:14] LABS: CHLORIDE 100 mmol/L (98-107); SODIUM 134 mmol/L (136-145)
[2023-09-09 15:16] LABS: CALCIUM 8.4 mg/dL (8.5-10.1)
[2023-09-09 15:17] LABS: ALBUMIN 3.5 g/dl (3.4-5.0); CO2 21 mmol/L (21-32); MAGNESIUM 2.1 mg/dL (1.8-2.4)
[2023-09-09 15:19] LABS: SGPT/ALT 50 U/L (13-61)
[2023-09-09 15:20] LABS: SGOT/AST 28 U/L (15-37)
[2023-09-09 15:21] LABS: BILIRUBIN,TOTAL 0.5 mg/dL (0.2-1); TOT PROT 8.7 g/dl (6.4-8.2)
[2023-09-09 15:22] LABS: ALK PHOS 168 U/L (45-117)
[2023-09-09 15:25] LABS: ANION GAP 13 mmol/L (4-13); CREATININE 9.1 mg/dL (0.55-1.3); GLUCOSE,RANDOM 403 mg/dL (74-106); POTASSIUM 6.7 mmol/L (3.5-5.1)
[2023-09-09] MEDS ORDERED: SODIUM CHLORIDE 250 ML IV PRN (16:36)
[2023-09-09] MEDS: EPOETIN ALFA-EPBX 4,000 UNIT/ML VIAL SQ ONE (19:58)
[2023-09-09 22:14] VITALS: BMI 27.1
[2023-09-09] MEDS: ATORVASTATIN CA 80 MG TABLET (FP) PO SCH (23:36)
[2023-09-09] MEDS: LABETALOL HCL 100 MG TABLET (FP) PO SCH (23:36)
[2023-09-09] MEDS: INSULIN ASPART SLIDING SCALE (NOVOLOG) 1 VIAL SQ SCH (23:37)
[2023-09-10] MEDS: ACETAMINOPHEN 1000 MG/100 ML BAG IVPB PRN (03:37)
[2023-09-10] MEDS: INSULIN (NOVOLOG) ASPART 100 UNITS/ML 10ML VIAL SQ ONE (05:32)
[2023-09-10 05:58] VITALS: RESP 18
[2023-09-10] MEDS: TAMSULOSIN HCL 0.4 MG CAP PO SCH (08:29)
[2023-09-10] MEDS: LISINOPRIL 20 MG TABLET PO SCH (09:03)
[2023-09-10] MEDS: TORSEMIDE 100 MG TABLET PO SCH (09:03)
[2023-09-10] MEDS: NIFEdipine E.R 60 MG TABLET PO SCH (09:03)
[2023-09-10] MEDS: CLOPIDOGREL BISULFATE 75 MG TABLET (FP) PO SCH (09:04)
[2023-09-10 11:11] LABS: BASO % 0.9 % (0-2.0); EOS % 3.2 % (0-4.5); HEMATOCRIT 30.8 % (35.4-49); HEMOGLOBIN 9.7 GM/dL (11.7-16.9); LYMPH % 18.3 % (8-40); MCH 29.8 pg (25.7-33.7); MCHC 31.6 g/dl (32.0-35.9); MEAN CELL VOLUME 94.6 fl (80-96); MEAN PLT VOLUME 7.8 fl (7.5-11.1); MONO % 9.2 % (3.8-10.2); NEUT % 68.4 % (42.8-82.8); PLATELET COUNT 231 10^3/uL (134-434); RBC 3.26 M/mm3 (4.00-5.60); RDW 16.7 % (11.9-15.9); WHITE BLOOD COUNT 6.1 K/mm3 (4.0-10.0)
[2023-09-10 11:35] LABS: POTASSIUM 4.8 mmol/L (3.5-5.1)
[2023-09-10 11:37] LABS: ALBUMIN 3.1 g/dl (3.4-5.0); BLOOD UREA NITROGEN 54.7 mg/dL (7-18)
[2023-09-10 11:40] LABS: CREATININE 6.9 mg/dL (0.55-1.3)
[2023-09-10 11:42] LABS: BILIRUBIN,TOTAL 0.6 mg/dL (0.2-1); TOT PROT 7.6 g/dl (6.4-8.2)
[2023-09-10 16:32] VITALS: BP 129/74; PULSE 81; TEMP 97.7
== END 2023-09-10 16:35 | disposition home or self-care (01) ==
LOC: JERFT 13:26 → JER 13:26 → JERBED 16:34 → J4W 20:49
PROVIDERS: ADMIT Internal Medicine; ATTEND Internal Medicine
PROC: 3E033NZ Introduction of Analgesics, Hypnotics, Sedatives into Peripheral Vein, Percutaneous Approach (ICD-10-PCS; principal; 2023-09-09)
PROC: 3E023GC Introduction of Other Therapeutic Substance into Muscle, Percutaneous Approach (ICD-10-PCS; 2023-09-09)
PROC: 3E013VG Introduction of Insulin into Subcutaneous Tissue, Percutaneous Approach (ICD-10-PCS; 2023-09-09)
DX: I12.0 Hypertensive chronic kidney disease with stage 5 chronic kidney disease or end stage renal disease (principal); D64.9 Anemia, unspecified; E11.22 Type 2 diabetes mellitus with diabetic chronic kidney disease; I50.9 Heart failure, unspecified; I73.9 Peripheral vascular disease, unspecified; N18.6 End stage renal disease; Z95.5 Presence of coronary angioplasty implant and graft; Z99.2 Dependence on renal dialysis; Z99.81 Dependence on supplemental oxygen; E78.00 Pure hypercholesterolemia, unspecified; Z87.891 Personal history of nicotine dependence; M86.9 Osteomyelitis, unspecified; E87.5 Hyperkalemia; Z91.018 Allergy to other foods
CPT/HCPCS: 0241U-QW; 36415; 71045-TC-FY; 80053; 82962; 83036; 83735; 85025; 86803; 87340; 96372; 96374; 99285-25; G0378; J0131; Q5106

== ENCOUNTER 2023-10-17 08:13 | Inpatient (IN) | payer OTHER ==
[2023-10-17 09:36] LABS: BASO % 0.6 % (0-2.0); EOS % 0.8 % (0-4.5); HEMATOCRIT 34.2 % (35.4-49); LYMPH % 8.1 % (8-40); MCH 29.8 pg (25.7-33.7); MCHC 32.2 g/dl (32.0-35.9); MEAN CELL VOLUME 92.6 fl (80-96); MEAN PLT VOLUME 8.7 fl (7.5-11.1); MONO % 3.7 % (3.8-10.2); NEUT % 86.8 % (42.8-82.8); PLATELET COUNT 195 10^3/uL (134-434); RBC 3.69 M/mm3 (4.00-5.60); RDW 16.1 % (11.9-15.9); WHITE BLOOD COUNT 8.9 K/mm3 (4.0-10.0)
[2023-10-17 09:57] LABS: CHLORIDE 90 mmol/L (98-107); POTASSIUM 4.7 mmol/L (3.5-5.1); SODIUM 123 mmol/L (136-145)
[2023-10-17 10:00] LABS: ALBUMIN 3.3 g/dl (3.4-5.0); ANION GAP 12 mmol/L (4-13); BLOOD UREA NITROGEN 50.5 mg/dL (7-18); CALCIUM 8.6 mg/dL (8.5-10.1); CO2 21 mmol/L (21-32); MAGNESIUM 2.1 mg/dL (1.8-2.4)
[2023-10-17 10:03] LABS: PHOSPHOROUS 5.2 mg/dL (2.5-4.9); SGOT/AST 10 U/L (15-37); SGPT/ALT 33 U/L (13-61)
[2023-10-17 10:04] LABS: BILIRUBIN,TOTAL 0.5 mg/dL (0.2-1); TOT PROT 8.1 g/dl (6.4-8.2)
[2023-10-17 10:06] LABS: ALK PHOS 147 U/L (45-117); CREATININE 8.8 mg/dL (0.55-1.3); GLUCOSE,RANDOM 891 mg/dL (74-106)
[2023-10-17 10:40] LABS: VENOUS BASE EXCESS -6.3 mmol/L (-2-2); VENOUS O2 SATURATION 59.7 % (70-80); VENOUS PH 7.28 (7.310-7.410)
[2023-10-17] MEDS ORDERED: INSULIN REGULAR HUMAN 100 UNITS/ML *VIAL ONE (11:02)
[2023-10-17] MEDS: INSULIN REGULAR HUMAN 100 UNITS/ML *VIAL IVPUSH ONE (11:03)
[2023-10-17] MEDS ORDERED: SODIUM CHLORIDE 250 ML IV PRN ×2 (12:46→16:43)
[2023-10-17] MEDS: SODIUM CHLORIDE 500 ML IV STA (12:59)
[2023-10-17] MEDS ORDERED: INSULIN (NOVOLOG) ASPART 100 UNITS/ML 10ML VIAL ONE (18:18)
[2023-10-17] MEDS: INSULIN ASPART SLIDING SCALE (NOVOLOG) 1 VIAL SQ SCH (18:19)
[2023-10-17] MEDS: INSULIN (NOVOLOG) ASPART 100 UNITS/ML 10ML VIAL SQ ONE (18:20)
[2023-10-17 19:48] VITALS: BMI 27.5
[2023-10-17 20:29] LABS: POTASSIUM 3.1 mmol/L (3.5-5.1)
[2023-10-17 20:32] LABS: CALCIUM 8.1 mg/dL (8.5-10.1)
[2023-10-17 20:36] LABS: CREATININE 5.1 mg/dL (0.55-1.3)
[2023-10-17 20:43] LABS: BLOOD UREA NITROGEN 22.1 mg/dL (7-18)
[2023-10-17] MEDS: POTASSIUM CHLORIDE TABS 20 MEQ TABLET.ER (FP) PO ONE ×2 (20:56→22:01)
[2023-10-17] MEDS: LABETALOL HCL 200 MG TABLET (FP) PO SCH (21:57)
[2023-10-17] MEDS: ATORVASTATIN CA 80 MG TABLET (FP) PO SCH (21:58)
[2023-10-17] MEDS: HEPARIN NA (PORCINE) 5,000 UNITS/ML 1ML VIAL SQ SCH (21:59)
[2023-10-18] MEDS: INSULIN (LEVEMIR) 100 UNITS/ML UNITS SQ SCH (06:34)
[2023-10-18 08:30] LABS: HEMATOCRIT 32.3 % (35.4-49); HEMOGLOBIN 10.6 GM/dL (11.7-16.9); MCH 29.8 pg (25.7-33.7); MCHC 32.8 g/dl (32.0-35.9); MEAN CELL VOLUME 90.9 fl (80-96); MEAN PLT VOLUME 8.5 fl (7.5-11.1); PLATELET COUNT 185 10^3/uL (134-434); RBC 3.55 M/mm3 (4.00-5.60); RDW 15.9 % (11.9-15.9); WHITE BLOOD COUNT 8.2 K/mm3 (4.0-10.0)
[2023-10-18] MEDS: TAMSULOSIN HCL 0.4 MG CAP PO SCH (08:45)
[2023-10-18 09:14] LABS: ALBUMIN 2.9 g/dl (3.4-5.0); CALCIUM 8.2 mg/dL (8.5-10.1); MAGNESIUM 1.8 mg/dL (1.8-2.4)
[2023-10-18 09:15] LABS: BLOOD UREA NITROGEN 24.9 mg/dL (7-18)
[2023-10-18 09:17] LABS: CREATININE 5.9 mg/dL (0.55-1.3); PHOSPHOROUS 3.1 mg/dL (2.5-4.9)
[2023-10-18 09:19] LABS: BILIRUBIN,TOTAL 0.6 mg/dL (0.2-1); TOT PROT 7.2 g/dl (6.4-8.2)
[2023-10-18] MEDS: LISINOPRIL 20 MG TABLET PO SCH (10:06)
[2023-10-18] MEDS: NIFEdipine E.R 60 MG TABLET PO SCH (10:06)
[2023-10-18] MEDS: TORSEMIDE 100 MG TABLET PO SCH (17:19)
[2023-10-18] MEDS: CLOPIDOGREL BISULFATE 75 MG TABLET (FP) PO SCH (17:20)
[2023-10-18] MEDS ORDERED: INSULIN (NOVOLOG) ASPART 100 UNITS/ML 10ML VIAL ONE (21:48)
[2023-10-19] MEDS ORDERED: INSULIN (LEVEMIR) 100 UNITS/ML UNITS SQ ONE (07:29)
[2023-10-19] MEDS ORDERED: INSULIN (NOVOLOG) ASPART 100 UNITS/ML 10ML VIAL ONE ×2 (12:26→21:21)
[2023-10-19] MEDS: INSULIN ASPART SLIDING SCALE (NOVOLOG) 1 VIAL SQ SCH (12:28)
[2023-10-19] MEDS ORDERED: INSULIN (LEVEMIR) 100 UNITS/ML UNITS SQ SCH (20:00)
[2023-10-19] MEDS: INSULIN (LEVEMIR) 100 UNITS/ML UNITS SQ SCH (20:04)
[2023-10-20 11:21] VITALS: BP 153/72; PULSE 73; RESP 20; TEMP 98.4
== END 2023-10-20 13:00 | disposition home or self-care (01) | DRG 637 ==
LOC: JER 08:13 → JERBED 09:20 → J8W 18:02
PROVIDERS: ADMIT Internal Medicine; ATTEND Nurse Practitioner Family
PROC: 5A1D70Z Performance of Urinary Filtration, Intermittent, Less than 6 Hours Per Day (ICD-10-PCS; principal; 2023-10-17)
DX: E11.65 Type 2 diabetes mellitus with hyperglycemia (principal); N18.6 End stage renal disease; I13.2 Hypertensive heart and chronic kidney disease with heart failure and with stage 5 chronic kidney disease, or end stage renal disease; I50.32 Chronic diastolic (congestive) heart failure; E11.22 Type 2 diabetes mellitus with diabetic chronic kidney disease; Z99.2 Dependence on renal dialysis; E78.5 Hyperlipidemia, unspecified; I25.10 Atherosclerotic heart disease of native coronary artery without angina pectoris; E11.51 Type 2 diabetes mellitus with diabetic peripheral angiopathy without gangrene; Z99.81 Dependence on supplemental oxygen; A08.4 Viral intestinal infection, unspecified; E87.6 Hypokalemia; D64.9 Anemia, unspecified
CPT/HCPCS: 0241U-QW; 36415; 71045-TC-FY; 80048; 80053; 82010; 82803; 82962; 83605; 83690; 83735; 84100; 84484; 85025; 85027; 86704; 86803; 86850; 86900; 86901; 87340; 87517; 93005; 93010; 99285-25; J1644

== ENCOUNTER 2023-10-24 08:48 | Observation (INO) | payer OTHER ==
[2023-10-24 08:57] VITALS: BMI 27.2
[2023-10-24 10:13] LABS: BASO % 0.5 % (0-2.0); EOS % 2.8 % (0-4.5); HEMATOCRIT 32.3 % (35.4-49); HEMOGLOBIN 10.1 GM/dL (11.7-16.9); LYMPH % 15.6 % (8-40); MCH 29.4 pg (25.7-33.7); MCHC 31.3 g/dl (32.0-35.9); MEAN CELL VOLUME 94.1 fl (80-96); MEAN PLT VOLUME 7.3 fl (7.5-11.1); MONO % 7.7 % (3.8-10.2); NEUT % 73.4 % (42.8-82.8); PLATELET COUNT 201 10^3/uL (134-434); RBC 3.43 M/mm3 (4.00-5.60); RDW 17.2 % (11.9-15.9); WHITE BLOOD COUNT 7.4 K/mm3 (4.0-10.0)
[2023-10-24 10:31] LABS: CHLORIDE 102 mmol/L (98-107); POTASSIUM 4.9 mmol/L (3.5-5.1); SODIUM 134 mmol/L (136-145)
[2023-10-24 10:33] LABS: ANION GAP 7 mmol/L (4-13); CALCIUM 8.2 mg/dL (8.5-10.1); CO2 26 mmol/L (21-32); GLUCOSE,RANDOM 212 mg/dL (74-106); MAGNESIUM 1.9 mg/dL (1.8-2.4)
[2023-10-24 10:36] LABS: PHOSPHOROUS 4.5 mg/dL (2.5-4.9); SGPT/ALT 26 U/L (13-61)
[2023-10-24 10:37] LABS: SGOT/AST 11 U/L (15-37)
[2023-10-24 10:38] LABS: ALK PHOS 118 U/L (45-117); BILIRUBIN,TOTAL 0.8 mg/dL (0.2-1); TOT PROT 7.1 g/dl (6.4-8.2)
[2023-10-24 10:44] LABS: BLOOD UREA NITROGEN 51.8 mg/dL (7-18); CREATININE 8.6 mg/dL (0.55-1.3)
[2023-10-24] MEDS ORDERED: AZITHROMYCIN IVPB 500 MG/250 ML BAG IVPB ONE (11:27)
[2023-10-24] MEDS ORDERED: CEFTRIAXONE 1 GM/50 ML BAG ONE (11:27)
[2023-10-24] MEDS: CEFTRIAXONE 1,000 MG in DEXTROSE 5%-WATER - 50 ML IVPB ONE (11:58)
[2023-10-24] MEDS: AZITHROMYCIN IVPB 500 MG in DEXTROSE 5%-WATER - 250 ML IVPB ONE (12:29)
[2023-10-24] MEDS ORDERED: EPOETIN ALFA-EPBX 10,000 UNIT/ML VIAL SQ ONE (12:41)
[2023-10-24] MEDS ORDERED: SODIUM CHLORIDE 250 ML IV PRN ×2 (12:41→17:10)
[2023-10-24] MEDS: INSULIN ASPART SLIDING SCALE (NOVOLOG) 1 VIAL SQ SCH (18:05)
[2023-10-24] MEDS: HEPARIN NA (PORCINE) 5,000 UNITS/ML 1ML VIAL SQ SCH (21:20)
[2023-10-25] MEDS: INSULIN ASPART SLIDING SCALE (NOVOLOG) 1 VIAL SQ SCH (05:34)
[2023-10-25] MEDS ORDERED: INSULIN ASPART SLIDING SCALE (NOVOLOG) 1 VIAL SQ SCH (08:00)
[2023-10-25] MEDS: CLOPIDOGREL BISULFATE 75 MG TABLET (FP) PO SCH (09:21)
[2023-10-25] MEDS: INSULIN (LEVEMIR) 100 UNITS/ML UNITS SQ SCH ×2 (09:22→21:45)
[2023-10-25] MEDS: LISINOPRIL 20 MG TABLET PO SCH (09:22)
[2023-10-25] MEDS: LABETALOL HCL 200 MG TABLET (FP) PO SCH (09:22)
[2023-10-25 09:38] LABS: HEMATOCRIT 29.4 % (35.4-49); HEMOGLOBIN 9.2 GM/dL (11.7-16.9); MCH 29.3 pg (25.7-33.7); MCHC 31.2 g/dl (32.0-35.9); MEAN CELL VOLUME 93.8 fl (80-96); MEAN PLT VOLUME 7.7 fl (7.5-11.1); PLATELET COUNT 196 10^3/uL (134-434); RBC 3.13 M/mm3 (4.00-5.60); RDW 17.2 % (11.9-15.9); WHITE BLOOD COUNT 6.4 K/mm3 (4.0-10.0)
[2023-10-25 10:04] LABS: POTASSIUM 4.2 mmol/L (3.5-5.1)
[2023-10-25 10:21] LABS: BLOOD UREA NITROGEN 42.4 mg/dL (7-18)
[2023-10-25 10:22] LABS: MAGNESIUM 1.9 mg/dL (1.8-2.4)
[2023-10-25 10:25] LABS: CREATININE 6.4 mg/dL (0.55-1.3)
[2023-10-25 12:43] VITALS: RESP 18
[2023-10-25] MEDS: EPOETIN ALFA-EPBX 10,000 UNIT/ML VIAL IVPUSH ONE (14:53)
[2023-10-25] MEDS ORDERED: ONDANSETRON 4 MG/2 ML VIAL IVPUSH PRN (17:31)
[2023-10-25] MEDS: ATORVASTATIN CA 80 MG TABLET (FP) PO SCH (21:43)
[2023-10-25] MEDS: BENZOCAINE/MENTH/CETYLPYRD CL 1 EACH LOZENGE MM PRN (22:40)
[2023-10-26 09:21] LABS: HEMATOCRIT 29.9 % (35.4-49); HEMOGLOBIN 9.5 GM/dL (11.7-16.9); MCH 30.2 pg (25.7-33.7); MEAN CELL VOLUME 94.5 fl (80-96); MEAN PLT VOLUME 7.7 fl (7.5-11.1); PLATELET COUNT 189 10^3/uL (134-434); RBC 3.16 M/mm3 (4.00-5.60); RDW 17.1 % (11.9-15.9); WHITE BLOOD COUNT 6.3 K/mm3 (4.0-10.0)
[2023-10-26 09:46] LABS: POTASSIUM 3.7 mmol/L (3.5-5.1)
[2023-10-26 09:55] LABS: CALCIUM 7.7 mg/dL (8.5-10.1)
[2023-10-26 09:56] LABS: BLOOD UREA NITROGEN 34.4 mg/dL (7-18); CREATININE 5.5 mg/dL (0.55-1.3); MAGNESIUM 1.7 mg/dL (1.8-2.4); PHOSPHOROUS 3.5 mg/dL (2.5-4.9)
[2023-10-26 10:01] LABS: TOT PROT 7.1 g/dl (6.4-8.2)
[2023-10-26 10:02] LABS: BILIRUBIN,TOTAL 1.1 mg/dL (0.2-1)
[2023-10-27 08:46] VITALS: BP 163/87; PULSE 77; TEMP 98.3
== END 2023-10-27 18:15 | disposition home or self-care (01) ==
LOC: JER 08:48 → JERBED 12:25 → J6S 16:16
PROVIDERS: ADMIT Internal Medicine; ATTEND Internal Medicine
PROC: 3E03329 Introduction of Other Anti-infective into Peripheral Vein, Percutaneous Approach (ICD-10-PCS; principal; 2023-10-24)
PROC: 3E023GC Introduction of Other Therapeutic Substance into Muscle, Percutaneous Approach (ICD-10-PCS; 2023-10-24)
PROC: 3E013VG Introduction of Insulin into Subcutaneous Tissue, Percutaneous Approach (ICD-10-PCS; 2023-10-24)
DX: I12.0 Hypertensive chronic kidney disease with stage 5 chronic kidney disease or end stage renal disease (principal); E11.22 Type 2 diabetes mellitus with diabetic chronic kidney disease; N18.6 End stage renal disease; Z99.2 Dependence on renal dialysis; Z91.158 Patient's noncompliance with renal dialysis for other reason; I25.10 Atherosclerotic heart disease of native coronary artery without angina pectoris; I11.9 Hypertensive heart disease without heart failure; I73.9 Peripheral vascular disease, unspecified; N28.9 Disorder of kidney and ureter, unspecified; I50.9 Heart failure, unspecified; Z86.14 Personal history of Methicillin resistant Staphylococcus aureus infection; Z87.891 Personal history of nicotine dependence
CPT/HCPCS: 36415; 71045-TC-FY; 80048; 80053; 82962; 83735; 84100; 85025; 85027; 86850; 86900; 86901; 93005; 93010; 96365; 96368; 96372; 96375; 99285-25; G0378; J1644; Q5106

== ENCOUNTER 2023-12-29 16:13 | Inpatient (IN) | payer OTHER ==
[2023-12-29 18:14] LABS: BASO % 0.8 % (0-2.0); EOS % 3.4 % (0-4.5); HEMATOCRIT 37.4 % (35.4-49); HEMOGLOBIN 12.1 GM/dL (11.7-16.9); LYMPH % 11.3 % (8-40); MCH 29.8 pg (25.7-33.7); MCHC 32.4 g/dl (32.0-35.9); MEAN PLT VOLUME 8.1 fl (7.5-11.1); MONO % 7.3 % (3.8-10.2); NEUT % 77.2 % (42.8-82.8); PLATELET COUNT 335 10^3/uL (134-434); RBC 4.06 M/mm3 (4.00-5.60); RDW 16.6 % (11.9-15.9); WHITE BLOOD COUNT 10.1 K/mm3 (4.0-10.0)
[2023-12-29 18:23] LABS: INR 1.17 (0.83-1.09); PROTHROMBIN TIME (PATIENT) 13.2 SEC (9.7-13.0)
[2023-12-29 18:26] LABS: ACTIVATED PTT 26.3 SECONDS (25.2-36.5)
[2023-12-29 18:31] LABS: CHLORIDE 101 mmol/L (98-107); POTASSIUM 5.2 mmol/L (3.5-5.1); SODIUM 133 mmol/L (136-145)
[2023-12-29 18:33] LABS: BLOOD UREA NITROGEN 50.5 mg/dL (7-18); CALCIUM 9.6 mg/dL (8.5-10.1)
[2023-12-29 18:34] LABS: ALBUMIN 3.2 g/dl (3.4-5.0); ANION GAP 6 mmol/L (4-13); CO2 26 mmol/L (21-32)
[2023-12-29 18:36] LABS: SGPT/ALT 40 U/L (13-61)
[2023-12-29 18:37] LABS: SGOT/AST 27 U/L (15-37)
[2023-12-29] MEDS ORDERED: VANCOMYCIN 1,000 MG in DEXTROSE 5%-WATER - 250 ML IVPB ONE (18:37)
[2023-12-29 18:38] LABS: BILIRUBIN,TOTAL 0.6 mg/dL (0.2-1); TOT PROT 8.4 g/dl (6.4-8.2)
[2023-12-29 18:39] LABS: ALK PHOS 130 U/L (45-117)
[2023-12-29 18:58] LABS: CREATININE 8.4 mg/dL (0.55-1.3); GLUCOSE,RANDOM 269 mg/dL (74-106)
[2023-12-29] MEDS ORDERED: SODIUM ZIRCONIUM CYCLOSILICATE (LOKELMA) 5 GM PACKET ONE (20:11)
[2023-12-29] MEDS ORDERED: PIPERACILLIN/TAZOB 2.25 GM 2.25 GM/50 ML BAG IVPB ONE (20:12)
[2023-12-29] MEDS ORDERED: ACETAMINOPHEN INJECTION 100 ML IVPB ONE (20:12)
[2023-12-29] MEDS: SODIUM ZIRCONIUM CYCLOSILICATE (LOKELMA) 5 GM PACKET PO ONE (20:40)
[2023-12-29] MEDS: ACETAMINOPHEN 1000 MG/100 ML BAG IVPB ONE (21:06)
[2023-12-29] MEDS: PIPERACILLIN/TAZOB 2.25 GM 2.25 GM in DEXTROSE 5%-WATER - 50 ML IVPB ONE (21:06)
[2023-12-29 22:41] VITALS: BMI 28.1
[2023-12-29] MEDS: INSULIN ASPART SLIDING SCALE (NOVOLOG) 1 VIAL SQ SCH (23:01)
[2023-12-29] MEDS: VANCOMYCIN/WATER FOR INJ (PEG) 1,000 MG/200 ML BAG IVPB ONE (23:30)
[2023-12-30] MEDS: ACETAMINOPHEN 1000 MG/100 ML BAG IVPB PRN (00:31)
[2023-12-30] MEDS: MELATONIN 5 MG TABLETS PO PRN (01:34)
[2023-12-30] MEDS ORDERED: HYDROmorphone HCL CARPU-JECT 2 MG/1 ML DISP.SYRIN IVPUSH ONE (02:13)
[2023-12-30] MEDS: INSULIN (LEVEMIR) 100 UNITS/ML UNITS SQ ONE (02:30)
[2023-12-30] MEDS ORDERED: INSULIN (LEVEMIR) 100 UNITS/ML UNITS SQ SCH ×3 (08:00→22:00)
[2023-12-30] MEDS ORDERED: oxyCODONE HCL 5 MG TABLET PO PRN (08:00)
[2023-12-30 09:22] LABS: HEMATOCRIT 32.8 % (35.4-49); HEMOGLOBIN 10.6 GM/dL (11.7-16.9); MCH 29.7 pg (25.7-33.7); MCHC 32.4 g/dl (32.0-35.9); MEAN CELL VOLUME 91.7 fl (80-96); MEAN PLT VOLUME 7.9 fl (7.5-11.1); PLATELET COUNT 287 10^3/uL (134-434); RBC 3.57 M/mm3 (4.00-5.60); RDW 16.4 % (11.9-15.9); WHITE BLOOD COUNT 8.1 K/mm3 (4.0-10.0)
[2023-12-30] MEDS ORDERED: SODIUM CHLORIDE 250 ML IV PRN ×2 (09:33→15:57)
[2023-12-30 09:45] LABS: CHLORIDE 102 mmol/L (98-107); SODIUM 135 mmol/L (136-145)
[2023-12-30 09:57] LABS: CALCIUM 8.6 mg/dL (8.5-10.1)
[2023-12-30 09:58] LABS: ALBUMIN 2.7 g/dl (3.4-5.0); ANION GAP 10 mmol/L (4-13); BLOOD UREA NITROGEN 57.6 mg/dL (7-18); CO2 23 mmol/L (21-32); GLUCOSE,RANDOM 116 mg/dL (74-106); MAGNESIUM 1.9 mg/dL (1.8-2.4)
[2023-12-30 09:59] LABS: BILIRUBIN,TOTAL 0.6 mg/dL (0.2-1); PHOSPHOROUS 4.2 mg/dL (2.5-4.9)
[2023-12-30 10:00] LABS: TOT PROT 7.2 g/dl (6.4-8.2)
[2023-12-30] MEDS ORDERED: NIFEdipine E.R 60 MG TABLET PO SCH (10:00)
[2023-12-30] MEDS ORDERED: LABETALOL HCL 200 MG TABLET (FP) PO SCH (10:00)
[2023-12-30] MEDS ORDERED: TAMSULOSIN HCL 0.4 MG CAP PO SCH (10:00)
[2023-12-30] MEDS ORDERED: LISINOPRIL 20 MG TABLET PO SCH (10:00)
[2023-12-30] MEDS ORDERED: TORSEMIDE 100 MG TABLET PO SCH (10:00)
[2023-12-30 10:01] LABS: SGOT/AST 18 U/L (15-37)
[2023-12-30 10:02] LABS: ALK PHOS 106 U/L (45-117); SGPT/ALT 33 U/L (13-61)
[2023-12-30 10:39] LABS: ERYTHROCYTE SEDIMENTATION RATE 86 mm/hr (0-20)
[2023-12-30] MEDS ORDERED: LIDOCAINE HCL 2% (20ML MULTI-DOSE VIAL) ONE (13:39)
[2023-12-30] MEDS ORDERED: PROPOFOL 20 ML ONE (14:42)
[2023-12-30] MEDS ORDERED: MIDAZOLAM HCL 2 MG/2 ML SINGLE DOSE VIAL ONE (14:43)
[2023-12-30] MEDS ORDERED: ONDANSETRON 4 MG/2 ML VIAL IVPUSH PRN ×2 (14:45→15:57)
[2023-12-30] MEDS ORDERED: SODIUM CHLORIDE 1,000 ML IV SCH ×2 (14:45→15:57)
[2023-12-30] MEDS ORDERED: VANCOMYCIN 1,000 MG VIAL (RESTRICTED TO ID ONLY) ONE (14:55)
[2023-12-30] MEDS: LIDOCAINE HCL 2% (50ML VIAL) NR ONE ×2 (14:56)
[2023-12-30] MEDS ORDERED: MELATONIN 5 MG TABLETS PO PRN (15:57)
[2023-12-30] MEDS ORDERED: ACETAMINOPHEN 1000 MG/100 ML BAG IVPB PRN (15:57)
[2023-12-30] MEDS: INSULIN ASPART SLIDING SCALE (NOVOLOG) 1 VIAL SQ SCH (17:31)
[2023-12-30] MEDS: LABETALOL HCL 200 MG TABLET (FP) PO SCH (21:50)
[2023-12-30] MEDS: ATORVASTATIN CA 80 MG TABLET (FP) PO SCH (21:50)
[2023-12-30] MEDS: INSULIN (LEVEMIR) 100 UNITS/ML UNITS SQ SCH (21:54)
[2023-12-30] MEDS ORDERED: ATORVASTATIN CA 80 MG TABLET (FP) PO SCH (22:00)
[2023-12-30] MEDS: oxyCODONE HCL 5 MG TABLET PO PRN (23:48)
[2023-12-31 08:28] LABS: POTASSIUM 4.4 mmol/L (3.5-5.1)
[2023-12-31 08:42] LABS: HEMATOCRIT 32.8 % (35.4-49); HEMOGLOBIN 10.4 GM/dL (11.7-16.9); MCH 29.2 pg (25.7-33.7); MCHC 31.8 g/dl (32.0-35.9); MEAN CELL VOLUME 91.7 fl (80-96); MEAN PLT VOLUME 7.7 fl (7.5-11.1); PLATELET COUNT 287 10^3/uL (134-434); RBC 3.58 M/mm3 (4.00-5.60); RDW 16.7 % (11.9-15.9); WHITE BLOOD COUNT 8.8 K/mm3 (4.0-10.0)
[2023-12-31 08:50] LABS: ALBUMIN 2.7 g/dl (3.4-5.0); CALCIUM 8.3 mg/dL (8.5-10.1)
[2023-12-31 08:53] LABS: CREATININE 6.7 mg/dL (0.55-1.3)
[2023-12-31 08:55] LABS: BILIRUBIN,TOTAL 0.8 mg/dL (0.2-1)
[2023-12-31] MEDS: TAMSULOSIN HCL 0.4 MG CAP PO SCH (08:59)
[2023-12-31] MEDS: LISINOPRIL 20 MG TABLET PO SCH (09:10)
[2023-12-31] MEDS: NIFEdipine E.R 60 MG TABLET PO SCH (09:10)
[2023-12-31] MEDS: TORSEMIDE 100 MG TABLET PO SCH (09:11)
[2023-12-31] MEDS: oxyCODONE HCL 5 MG TABLET PO ONE (10:17)
[2023-12-31] MEDS: oxyCODONE HCL 5 MG TABLET PO PRN (14:43)
[2024-01-01 07:38] LABS: HEMOGLOBIN 10.1 GM/dL (11.7-16.9); MCH 29.5 pg (25.7-33.7); MCHC 32.5 g/dl (32.0-35.9); MEAN CELL VOLUME 90.9 fl (80-96); MEAN PLT VOLUME 7.1 fl (7.5-11.1); PLATELET COUNT 284 10^3/uL (134-434); RBC 3.41 M/mm3 (4.00-5.60); RDW 16.5 % (11.9-15.9); WHITE BLOOD COUNT 7.1 K/mm3 (4.0-10.0)
[2024-01-01 08:01] LABS: CHLORIDE 101 mmol/L (98-107); POTASSIUM 4.7 mmol/L (3.5-5.1); SODIUM 137 mmol/L (136-145)
[2024-01-01 08:04] LABS: ALBUMIN 2.6 g/dl (3.4-5.0); ANION GAP 9 mmol/L (4-13); BLOOD UREA NITROGEN 54.4 mg/dL (7-18); CALCIUM 8.1 mg/dL (8.5-10.1); CO2 27 mmol/L (21-32); GLUCOSE,RANDOM 121 mg/dL (74-106)
[2024-01-01 08:07] LABS: SGOT/AST 23 U/L (15-37)
[2024-01-01 08:08] LABS: SGPT/ALT 33 U/L (13-61)
[2024-01-01 08:09] LABS: BILIRUBIN,TOTAL 0.7 mg/dL (0.2-1); TOT PROT 6.9 g/dl (6.4-8.2)
[2024-01-01 08:10] LABS: ALK PHOS 121 U/L (45-117)
[2024-01-01 08:33] LABS: CREATININE 8.6 mg/dL (0.55-1.3)
[2024-01-01] MEDS ORDERED: SODIUM CHLORIDE 250 ML IV PRN (10:00)
[2024-01-01] MEDS: EPOETIN ALFA-EPBX 4,000 UNIT/ML VIAL SQ ONE (10:17)
[2024-01-01] MEDS: CLOPIDOGREL BISULFATE 75 MG TABLET (FP) PO SCH (12:48)
[2024-01-01] MEDS: PIPERACILLIN/TAZOB 2.25 GM 2.25 GM in DEXTROSE 5%-WATER - 50 ML IVPB SCH (21:21)
[2024-01-01] MEDS ORDERED: PIPERACILLIN/TAZOB 2.25 GM 2.25 GM in DEXTROSE 5%-WATER - 50 ML IVPB SCH (22:00)
[2024-01-02 09:26] LABS: HEMATOCRIT 33.2 % (35.4-49); HEMOGLOBIN 10.8 GM/dL (11.7-16.9); MCH 29.5 pg (25.7-33.7); MCHC 32.4 g/dl (32.0-35.9); MEAN CELL VOLUME 91.1 fl (80-96); MEAN PLT VOLUME 7.7 fl (7.5-11.1); PLATELET COUNT 286 10^3/uL (134-434); RBC 3.65 M/mm3 (4.00-5.60); RDW 16.8 % (11.9-15.9)
[2024-01-02 09:47] LABS: CALCIUM 7.9 mg/dL (8.5-10.1)
[2024-01-02 09:48] LABS: ALBUMIN 2.7 g/dl (3.4-5.0); BLOOD UREA NITROGEN 40.1 mg/dL (7-18)
[2024-01-02 09:51] LABS: CREATININE 7.1 mg/dL (0.55-1.3)
[2024-01-02 09:53] LABS: BILIRUBIN,TOTAL 0.8 mg/dL (0.2-1); TOT PROT 7.4 g/dl (6.4-8.2)
[2024-01-02] MEDS ORDERED: ACETAMINOPHEN 1000 MG/100 ML BAG IVPB PRN (13:02)
[2024-01-03] MEDS: PIPERACILLIN/TAZOB 2.25 GM 2.25 GM in DEXTROSE 5%-WATER - 50 ML IVPB SCH (05:12)
[2024-01-03 09:42] LABS: HEMATOCRIT 31.3 % (35.4-49); HEMOGLOBIN 10.2 GM/dL (11.7-16.9); MCH 29.8 pg (25.7-33.7); MCHC 32.7 g/dl (32.0-35.9); MEAN CELL VOLUME 91.1 fl (80-96); MEAN PLT VOLUME 7.3 fl (7.5-11.1); PLATELET COUNT 292 10^3/uL (134-434); RBC 3.43 M/mm3 (4.00-5.60); RDW 16.5 % (11.9-15.9); WHITE BLOOD COUNT 7.3 K/mm3 (4.0-10.0)
[2024-01-03 10:02] LABS: CHLORIDE 100 mmol/L (98-107); POTASSIUM 4.4 mmol/L (3.5-5.1); SODIUM 138 mmol/L (136-145)
[2024-01-03 10:07] LABS: CALCIUM 7.6 mg/dL (8.5-10.1)
[2024-01-03 10:08] LABS: ALBUMIN 2.6 g/dl (3.4-5.0); ANION GAP 11 mmol/L (4-13); BLOOD UREA NITROGEN 52.6 mg/dL (7-18); CO2 28 mmol/L (21-32); GLUCOSE,RANDOM 161 mg/dL (74-106)
[2024-01-03 10:11] LABS: SGOT/AST 26 U/L (15-37); SGPT/ALT 37 U/L (13-61)
[2024-01-03 10:12] LABS: BILIRUBIN,TOTAL 1.2 mg/dL (0.2-1)
[2024-01-03 10:13] LABS: ALK PHOS 116 U/L (45-117); TOT PROT 7.5 g/dl (6.4-8.2)
[2024-01-03 10:22] LABS: CREATININE 8.6 mg/dL (0.55-1.3)
[2024-01-03] MEDS ORDERED: SODIUM CHLORIDE 250 ML IV PRN (12:23)
[2024-01-04] MEDS: LOPERAMIDE HCL 2 MG CAPSULE PO ONE (01:27)
[2024-01-04 07:16] LABS: HEMATOCRIT 33.3 % (35.4-49); HEMOGLOBIN 10.7 GM/dL (11.7-16.9); MCH 29.6 pg (25.7-33.7); MCHC 32.2 g/dl (32.0-35.9); MEAN PLT VOLUME 6.9 fl (7.5-11.1); PLATELET COUNT 293 10^3/uL (134-434); RBC 3.62 M/mm3 (4.00-5.60); RDW 16.9 % (11.9-15.9); WHITE BLOOD COUNT 6.7 K/mm3 (4.0-10.0)
[2024-01-04 07:40] LABS: ALBUMIN 2.6 g/dl (3.4-5.0); CALCIUM 7.9 mg/dL (8.5-10.1)
[2024-01-04 07:41] LABS: BLOOD UREA NITROGEN 36.4 mg/dL (7-18)
[2024-01-04 07:43] LABS: CREATININE 6.4 mg/dL (0.55-1.3)
[2024-01-04 07:45] LABS: BILIRUBIN,TOTAL 0.8 mg/dL (0.2-1); TOT PROT 7.6 g/dl (6.4-8.2)
[2024-01-04] MEDS: ACETAMINOPHEN 325 MG TABLET (FP) PO PRN (12:10)
[2024-01-06] MEDS ORDERED: SODIUM CHLORIDE 250 ML IV PRN (10:07)
[2024-01-06 10:12] LABS: EOS % 5.9 % (0-4.5); HEMATOCRIT 30.7 % (35.4-49); HEMOGLOBIN 10.2 GM/dL (11.7-16.9); LYMPH % 19.1 % (8-40); MCH 29.9 pg (25.7-33.7); MCHC 33.3 g/dl (32.0-35.9); MEAN CELL VOLUME 89.9 fl (80-96); MEAN PLT VOLUME 7.1 fl (7.5-11.1); MONO % 8.2 % (3.8-10.2); NEUT % 65.8 % (42.8-82.8); PLATELET COUNT 311 10^3/uL (134-434); RBC 3.42 M/mm3 (4.00-5.60); RDW 16.9 % (11.9-15.9)
[2024-01-06 10:24] LABS: CHLORIDE 100 mmol/L (98-107); POTASSIUM 4.2 mmol/L (3.5-5.1); SODIUM 137 mmol/L (136-145)
[2024-01-06 10:27] LABS: CALCIUM 7.8 mg/dL (8.5-10.1)
[2024-01-06 10:29] LABS: ALBUMIN 2.7 g/dl (3.4-5.0); ANION GAP 12 mmol/L (4-13); BLOOD UREA NITROGEN 57.4 mg/dL (7-18); CO2 26 mmol/L (21-32); GLUCOSE,RANDOM 112 mg/dL (74-106); MAGNESIUM 1.7 mg/dL (1.8-2.4)
[2024-01-06 10:30] LABS: PHOSPHOROUS 6.5 mg/dL (2.5-4.9); SGPT/ALT 45 U/L (13-61)
[2024-01-06 10:31] LABS: SGOT/AST 33 U/L (15-37)
[2024-01-06 10:32] LABS: BILIRUBIN,TOTAL 0.6 mg/dL (0.2-1); TOT PROT 7.7 g/dl (6.4-8.2)
[2024-01-06 10:33] LABS: ALK PHOS 150 U/L (45-117)
[2024-01-06 10:34] LABS: CREATININE 9.8 mg/dL (0.55-1.3)
[2024-01-06] MEDS: EPOETIN ALFA-EPBX 4,000 UNIT/ML VIAL SQ ONE (11:33)
[2024-01-06] MEDS: HEPARIN NA (PORCINE) 5,000 UNITS/ML 1ML VIAL SQ SCH (15:17)
[2024-01-07 08:43] LABS: BASO % 1.1 % (0-2.0); EOS % 5.1 % (0-4.5); HEMATOCRIT 33.4 % (35.4-49); LYMPH % 19.4 % (8-40); MCH 29.7 pg (25.7-33.7); MCHC 32.9 g/dl (32.0-35.9); MEAN CELL VOLUME 90.3 fl (80-96); MEAN PLT VOLUME 7.1 fl (7.5-11.1); MONO % 8.4 % (3.8-10.2); PLATELET COUNT 304 10^3/uL (134-434); RDW 16.6 % (11.9-15.9); WHITE BLOOD COUNT 6.4 K/mm3 (4.0-10.0)
[2024-01-07 09:15] LABS: ALBUMIN 2.8 g/dl (3.4-5.0); CALCIUM 7.7 mg/dL (8.5-10.1); MAGNESIUM 1.7 mg/dL (1.8-2.4)
[2024-01-07 09:16] LABS: BLOOD UREA NITROGEN 36.4 mg/dL (7-18)
[2024-01-07 09:18] LABS: PHOSPHOROUS 5.4 mg/dL (2.5-4.9)
[2024-01-07 09:19] LABS: CREATININE 7.2 mg/dL (0.55-1.3)
[2024-01-07 09:20] LABS: BILIRUBIN,TOTAL 0.9 mg/dL (0.2-1); TOT PROT 8.1 g/dl (6.4-8.2)
[2024-01-07] MEDS ORDERED: SODIUM CHLORIDE 250 ML IV PRN (11:54)
[2024-01-07] MEDS: PIPERACILLIN/TAZOB 2.25 GM 2.25 GM in DEXTROSE 5%-WATER - 50 ML IVPB SCH (21:27)
[2024-01-08 08:52] LABS: HEMATOCRIT 32.9 % (35.4-49); HEMOGLOBIN 10.8 GM/dL (11.7-16.9); MCH 29.7 pg (25.7-33.7); MCHC 32.9 g/dl (32.0-35.9); MEAN CELL VOLUME 90.4 fl (80-96); MEAN PLT VOLUME 7.1 fl (7.5-11.1); PLATELET COUNT 307 10^3/uL (134-434); RBC 3.64 M/mm3 (4.00-5.60); RDW 16.4 % (11.9-15.9); WHITE BLOOD COUNT 7.4 K/mm3 (4.0-10.0)
[2024-01-08 09:33] LABS: ALBUMIN 2.8 g/dl (3.4-5.0); ALK PHOS 147 U/L (45-117); ANION GAP 11 mmol/L (4-13); BILIRUBIN,TOTAL 0.8 mg/dL (0.2-1); BLOOD UREA NITROGEN 48.6 mg/dL (7-18); CALCIUM 7.9 mg/dL (8.5-10.1); CHLORIDE 100 mmol/L (98-107); CO2 29 mmol/L (21-32); CREATININE 8.7 mg/dL (0.55-1.3); GLUCOSE,RANDOM 108 mg/dL (74-106); POTASSIUM 4.2 mmol/L (3.5-5.1); SGOT/AST 35 U/L (15-37); SGPT/ALT 47 U/L (13-61); SODIUM 140 mmol/L (136-145); TOT PROT 8.3 g/dl (6.4-8.2)
[2024-01-08 09:38] VITALS: RESP 18
[2024-01-08] MEDS: oxyCODONE HCL 5 MG TABLET PO PRN (13:54)
[2024-01-08 20:49] VITALS: PULSE 83
[2024-01-09 08:58] VITALS: BP 153/80; TEMP 98.2
== END 2024-01-09 12:29 | disposition home or self-care (01) | DRG 617 ==
LOC: JER 16:13 → JERBED 19:11 → J6S 21:27
PROVIDERS: ADMIT Internal Medicine; ATTEND Internal Medicine
PROC: 0JBR0ZZ Excision of Left Foot Subcutaneous Tissue and Fascia, Open Approach (ICD-10-PCS; 2023-12-30)
PROC: 0QBP0ZX Excision of Left Metatarsal, Open Approach, Diagnostic (ICD-10-PCS; 2023-12-30)
PROC: 0Y6Y0Z3 Detachment at Left 5th Toe, Low, Open Approach (ICD-10-PCS; principal; 2023-12-30 14:30)
PROC: 02HV33Z Insertion of Infusion Device into Superior Vena Cava, Percutaneous Approach (ICD-10-PCS; 2024-01-07)
PROC: B548ZZA Ultrasonography of Superior Vena Cava, Guidance (ICD-10-PCS; 2024-01-07)
PROC: 5A1D70Z Performance of Urinary Filtration, Intermittent, Less than 6 Hours Per Day (ICD-10-PCS; 2024-01-08)
DX: E11.621 Type 2 diabetes mellitus with foot ulcer (principal); I13.2 Hypertensive heart and chronic kidney disease with heart failure and with stage 5 chronic kidney disease, or end stage renal disease; M86.10 Other acute osteomyelitis, unspecified site; M86.8X7 Other osteomyelitis, ankle and foot; I50.32 Chronic diastolic (congestive) heart failure; L97.509 Non-pressure chronic ulcer of other part of unspecified foot with unspecified severity; N18.6 End stage renal disease; E11.51 Type 2 diabetes mellitus with diabetic peripheral angiopathy without gangrene; E11.69 Type 2 diabetes mellitus with other specified complication; Z99.2 Dependence on renal dialysis; E11.42 Type 2 diabetes mellitus with diabetic polyneuropathy; D63.8 Anemia in other chronic diseases classified elsewhere; E78.5 Hyperlipidemia, unspecified; I25.10 Atherosclerotic heart disease of native coronary artery without angina pectoris
CPT/HCPCS: 36415; 36558; 73630-TC-LT; 75820-TC-FY; 80048; 80053; 82962; 83735; 84100; 85025; 85027; 85610; 85651; 85730; 86140; 86803; 87040; 87070; 87075; 87186; 87205; 87340; 88304-TC; 88311-TC; 93005; 93010; 94760; 99285-25; J0131; J1644; Q5106

== ENCOUNTER 2024-01-15 21:50 | Emergency (ER) | payer OTHER ==
[2024-01-15 21:56] VITALS: BP 183/76; PULSE 96; RESP 18; TEMP 98.2; BMI 27.2
[2024-01-15] MEDS ORDERED: PIPERACILLIN/TAZOB 3.375 GM 3.375 GM/50 ML BAG IVPB ONE (23:00)
[2024-01-15] MEDS: PIPERACILLIN/TAZOB 3.375 GM 3.375 GM in DEXTROSE 5%-WATER - 50 ML IVPB ONE (23:18)
[2024-01-15] MEDS ORDERED: ACETAMINOPHEN INJECTION 100 ML IVPB ONE (23:29)
[2024-01-15] MEDS: ACETAMINOPHEN 1000 MG/100 ML BAG IVPB ONE (23:45)
== END 2024-01-16 00:18 | disposition home or self-care (01) ==
LOC: JER 21:50
DX: M86.9 Osteomyelitis, unspecified (principal); Z76.0 Encounter for issue of repeat prescription
CPT/HCPCS: 99284-25

== ENCOUNTER 2024-01-24 12:51 | Inpatient (IN) | payer OTHER ==
[2024-01-24 13:00] VITALS: BMI 26.2
[2024-01-24] MEDS ORDERED: ACETAMINOPHEN INJECTION 100 ML IVPB ONE ×2 (14:15→19:51)
[2024-01-24] MEDS ORDERED: FAMOTIDINE 20 MG/50 ML IVPB 20 MG/50 ML MG IVPB ONE (14:16)
[2024-01-24] MEDS ORDERED: MAG HYDROX/AL HYDROX/SIMETH 30 ML UNIT-DOSE CUP ONE (14:16)
[2024-01-24 14:23] LABS: BASO % 0.8 % (0-2.0); EOS % 5.6 % (0-4.5); HEMATOCRIT 35.4 % (35.4-49); HEMOGLOBIN 11.4 GM/dL (11.7-16.9); LYMPH % 13.6 % (8-40); MCH 29.9 pg (25.7-33.7); MCHC 32.2 g/dl (32.0-35.9); MEAN CELL VOLUME 92.7 fl (80-96); MEAN PLT VOLUME 7.6 fl (7.5-11.1); MONO % 5.8 % (3.8-10.2); NEUT % 74.2 % (42.8-82.8); PLATELET COUNT 246 10^3/uL (134-434); RBC 3.82 M/mm3 (4.00-5.60); RDW 17.9 % (11.9-15.9); WHITE BLOOD COUNT 8.1 K/mm3 (4.0-10.0)
[2024-01-24 14:29] LABS: INR 1.13 (0.83-1.09)
[2024-01-24 14:32] LABS: ACTIVATED PTT 34.4 SECONDS (25.2-36.5)
[2024-01-24] MEDS: MAG HYDROX/AL HYDROX/SIMETH 30 ML UNIT-DOSE CUP PO ONE (14:33)
[2024-01-24] MEDS: FAMOTIDINE 20 MG/50 ML IVPB 20 MG/50 ML MG IVPB ONE (14:33)
[2024-01-24] MEDS: ACETAMINOPHEN 1000 MG/100 ML BAG IVPB ONE ×2 (14:33→19:58)
[2024-01-24 14:38] LABS: VENOUS BASE EXCESS 2.8 mmol/L (-2-2); VENOUS O2 SATURATION 42.8 % (70-80); VENOUS PCO2 57.1 mmHg (38-52); VENOUS PH 7.336 (7.310-7.410)
[2024-01-24 14:44] LABS: CHLORIDE 96 mmol/L (98-107); SODIUM 136 mmol/L (136-145)
[2024-01-24 14:47] LABS: ALBUMIN 3.2 g/dl (3.4-5.0); ANION GAP 12 mmol/L (4-13); BLOOD UREA NITROGEN 50.9 mg/dL (7-18); CALCIUM 8.8 mg/dL (8.5-10.1); CO2 29 mmol/L (21-32); GLUCOSE,RANDOM 317 mg/dL (74-106); MAGNESIUM 2.2 mg/dL (1.8-2.4)
[2024-01-24 14:50] LABS: SGOT/AST 34 U/L (15-37); SGPT/ALT 35 U/L (13-61)
[2024-01-24 14:52] LABS: BILIRUBIN,TOTAL 0.5 mg/dL (0.2-1); CREATININE 8.3 mg/dL (0.55-1.3); TOT PROT 9.2 g/dl (6.4-8.2)
[2024-01-24 14:53] LABS: ALK PHOS 112 U/L (45-117)
[2024-01-24] MEDS ORDERED: LISINOPRIL 20 MG TABLET ONE (19:20)
[2024-01-24] MEDS: LISINOPRIL 20 MG TABLET PO ONE (19:26)
[2024-01-24] MEDS ORDERED: hydrALAZINE HCL 20 MG/ML VIAL ONE (22:14)
[2024-01-24] MEDS: hydrALAZINE HCL 20 MG/ML VIAL IVPUSH ONE (22:28)
[2024-01-24] MEDS ORDERED: ACETAMINOPHEN 325 MG TABLET (FP) PO PRN (22:30)
[2024-01-24] MEDS ORDERED: [UNRECOGNIZED DRUG - OTHER] IVPB SCH (22:45)
[2024-01-24] MEDS ORDERED: PIPERACILLIN/TAZOB 2.25 GM 2.25 GM/50 ML BAG IVPB ONE (23:12)
[2024-01-24] MEDS ORDERED: LABETALOL HCL 100 MG TABLET (FP) ONE (23:12)
[2024-01-25] MEDS: LABETALOL HCL 200 MG TABLET (FP) PO SCH (00:12)
[2024-01-25] MEDS: PIPERACILLIN/TAZOB 2.25 GM 2.25 GM in DEXTROSE 5%-WATER - 50 ML IVPB SCH (00:12)
[2024-01-25] MEDS: HEPARIN NA (PORCINE) 5,000 UNITS/ML 1ML VIAL SQ SCH (06:45)
[2024-01-25] MEDS: INSULIN ASPART SLIDING SCALE (NOVOLOG) 1 VIAL SQ SCH (06:45)
[2024-01-25 07:40] LABS: BASO % 1.2 % (0-2.0); EOS % 7.1 % (0-4.5); HEMATOCRIT 30.9 % (35.4-49); LYMPH % 24.4 % (8-40); MCH 29.5 pg (25.7-33.7); MCHC 32.3 g/dl (32.0-35.9); MEAN CELL VOLUME 91.4 fl (80-96); MEAN PLT VOLUME 7.8 fl (7.5-11.1); MONO % 7.6 % (3.8-10.2); NEUT % 59.7 % (42.8-82.8); PLATELET COUNT 224 10^3/uL (134-434); RBC 3.38 M/mm3 (4.00-5.60); RDW 17.1 % (11.9-15.9); WHITE BLOOD COUNT 7.4 K/mm3 (4.0-10.0)
[2024-01-25 07:48] LABS: CHLORIDE 98 mmol/L (98-107); POTASSIUM 3.6 mmol/L (3.5-5.1); SODIUM 136 mmol/L (136-145)
[2024-01-25 07:55] LABS: ANION GAP 13 mmol/L (4-13); BLOOD UREA NITROGEN 60.3 mg/dL (7-18); CALCIUM 7.9 mg/dL (8.5-10.1); CO2 25 mmol/L (21-32); GLUCOSE,RANDOM 198 mg/dL (74-106); MAGNESIUM 2.2 mg/dL (1.8-2.4)
[2024-01-25 07:56] LABS: ALBUMIN 2.9 g/dl (3.4-5.0)
[2024-01-25 07:58] LABS: PHOSPHOROUS 5.7 mg/dL (2.5-4.9); SGPT/ALT 28 U/L (13-61)
[2024-01-25 07:59] LABS: SGOT/AST 19 U/L (15-37)
[2024-01-25 08:00] LABS: BILIRUBIN,TOTAL 0.5 mg/dL (0.2-1); CREATININE 9.1 mg/dL (0.55-1.3); TOT PROT 7.6 g/dl (6.4-8.2)
[2024-01-25 08:01] LABS: ALK PHOS 97 U/L (45-117)
[2024-01-25] MEDS: INSULIN (LEVEMIR) 100 UNITS/ML UNITS SQ SCH (09:16)
[2024-01-25] MEDS: PANTOPRAZOLE 40 MG TABLET PO SCH (09:16)
[2024-01-25] MEDS: CLOPIDOGREL BISULFATE 75 MG TABLET (FP) PO SCH (09:16)
[2024-01-25] MEDS: NIFEdipine E.R 60 MG TABLET PO SCH (09:17)
[2024-01-25] MEDS: TAMSULOSIN HCL 0.4 MG CAP PO SCH (09:17)
[2024-01-25] MEDS: LISINOPRIL 20 MG TABLET PO SCH (09:17)
[2024-01-25] MEDS: TORSEMIDE 100 MG TABLET PO SCH (09:17)
[2024-01-25] MEDS ORDERED: PATIENT'S OWN MEDICATION (NON-FORMULARY) (Lisinopril [Lisinopril] 40 MG Tablet) PO SCH (10:00)
[2024-01-25] MEDS ORDERED: SODIUM CHLORIDE 250 ML IV PRN (20:27)
[2024-01-25] MEDS: ATORVASTATIN CA 80 MG TABLET (FP) PO SCH (21:37)
[2024-01-25] MEDS ORDERED: PIPERACILLIN/TAZOB 2.25 GM 2.25 GM in DEXTROSE 5%-WATER - 50 ML IVPB SCH (22:00)
[2024-01-25] MEDS: ACETAMINOPHEN 1000 MG/100 ML BAG IVPB ONE (22:34)
[2024-01-26] MEDS: oxyCODONE HCL 5 MG TABLET PO ONE (03:24)
[2024-01-26] MEDS: ACETAMINOPHEN 1000 MG/100 ML BAG IVPB ONE (03:25)
[2024-01-26 07:58] LABS: BASO % 0.9 % (0-2.0); EOS % 8.3 % (0-4.5); HEMATOCRIT 28.3 % (35.4-49); HEMOGLOBIN 9.3 GM/dL (11.7-16.9); LYMPH % 23.4 % (8-40); MCH 29.9 pg (25.7-33.7); MCHC 32.9 g/dl (32.0-35.9); MEAN CELL VOLUME 90.9 fl (80-96); MEAN PLT VOLUME 7.9 fl (7.5-11.1); MONO % 8.5 % (3.8-10.2); NEUT % 58.9 % (42.8-82.8); PLATELET COUNT 209 10^3/uL (134-434); RBC 3.11 M/mm3 (4.00-5.60); RDW 17.2 % (11.9-15.9); WHITE BLOOD COUNT 6.7 K/mm3 (4.0-10.0)
[2024-01-26 08:08] LABS: CHLORIDE 98 mmol/L (98-107); POTASSIUM 3.5 mmol/L (3.5-5.1); SODIUM 138 mmol/L (136-145)
[2024-01-26 08:09] LABS: CALCIUM 7.6 mg/dL (8.5-10.1)
[2024-01-26 08:10] LABS: ANION GAP 18 mmol/L (4-13); BLOOD UREA NITROGEN 70.7 mg/dL (7-18); CO2 22 mmol/L (21-32); GLUCOSE,RANDOM 171 mg/dL (74-106)
[2024-01-26 08:18] LABS: CREATININE 10.4 mg/dL (0.55-1.3)
[2024-01-26] MEDS: PIPERACILLIN/TAZOB 2.25 GM 2.25 GM in DEXTROSE 5%-WATER - 50 ML IVPB ONE (17:07)
[2024-01-27] MEDS: PIPERACILLIN/TAZOB 4.5 GM 4.5 GM in DEXTROSE 5%-WATER 100 ML IVPB SCH ×2 (02:13→05:03)
[2024-01-27 07:26] LABS: HEMATOCRIT 28.9 % (35.4-49); HEMOGLOBIN 9.5 GM/dL (11.7-16.9); MCH 29.7 pg (25.7-33.7); MCHC 32.7 g/dl (32.0-35.9); MEAN CELL VOLUME 90.9 fl (80-96); MEAN PLT VOLUME 7.6 fl (7.5-11.1); PLATELET COUNT 214 10^3/uL (134-434); RBC 3.18 M/mm3 (4.00-5.60); RDW 17.2 % (11.9-15.9); WHITE BLOOD COUNT 6.3 K/mm3 (4.0-10.0)
[2024-01-27 07:27] LABS: CHLORIDE 101 mmol/L (98-107); POTASSIUM 3.9 mmol/L (3.5-5.1); SODIUM 137 mmol/L (136-145)
[2024-01-27 07:36] LABS: CALCIUM 7.4 mg/dL (8.5-10.1)
[2024-01-27 07:37] LABS: ALBUMIN 2.7 g/dl (3.4-5.0); ANION GAP 13 mmol/L (4-13); BLOOD UREA NITROGEN 78.5 mg/dL (7-18); CO2 24 mmol/L (21-32); GLUCOSE,RANDOM 105 mg/dL (74-106); MAGNESIUM 2.1 mg/dL (1.8-2.4)
[2024-01-27 07:39] LABS: SGPT/ALT 24 U/L (13-61)
[2024-01-27 07:40] LABS: PHOSPHOROUS 7.5 mg/dL (2.5-4.9); SGOT/AST 17 U/L (15-37)
[2024-01-27 07:41] LABS: BILIRUBIN,TOTAL 0.5 mg/dL (0.2-1); TOT PROT 7.3 g/dl (6.4-8.2)
[2024-01-27 07:42] LABS: ALK PHOS 108 U/L (45-117); CREATININE 12.1 mg/dL (0.55-1.3)
[2024-01-27] MEDS: PIPERACILLIN/TAZOB 2.25 GM 2.25 GM in DEXTROSE 5%-WATER - 50 ML IVPB SCH (08:08)
[2024-01-27 15:46] VITALS: BP 130/81; PULSE 74; RESP 19; TEMP 98.9
== END 2024-01-27 17:20 | disposition home or self-care (01) | DRG 304 ==
LOC: JER 12:51 → JERBED 20:10 → J4W 01-25 00:40
PROVIDERS: ADMIT Internal Medicine; ATTEND Internal Medicine
PROC: 5A1D70Z Performance of Urinary Filtration, Intermittent, Less than 6 Hours Per Day (ICD-10-PCS; principal; 2024-01-27)
DX: I16.0 Hypertensive urgency (principal); N18.6 End stage renal disease; I50.32 Chronic diastolic (congestive) heart failure; M86.8X7 Other osteomyelitis, ankle and foot; L97.528 Non-pressure chronic ulcer of other part of left foot with other specified severity; E78.5 Hyperlipidemia, unspecified; E11.51 Type 2 diabetes mellitus with diabetic peripheral angiopathy without gangrene; I13.2 Hypertensive heart and chronic kidney disease with heart failure and with stage 5 chronic kidney disease, or end stage renal disease; K21.00 Gastro-esophageal reflux disease with esophagitis, without bleeding; R11.2 Nausea with vomiting, unspecified; K52.89 Other specified noninfective gastroenteritis and colitis; I25.10 Atherosclerotic heart disease of native coronary artery without angina pectoris; F20.9 Schizophrenia, unspecified; E11.22 Type 2 diabetes mellitus with diabetic chronic kidney disease; E11.69 Type 2 diabetes mellitus with other specified complication; E11.621 Type 2 diabetes mellitus with foot ulcer; Z95.5 Presence of coronary angioplasty implant and graft; Z89.421 Acquired absence of other right toe(s); Z99.2 Dependence on renal dialysis
CPT/HCPCS: 0241U-QW; 36415; 71045-TC-FY; 74176-TC; 80048; 80053; 82010; 82803; 82962; 83036; 83605; 83690; 83735; 84100; 84484; 85025; 85027; 85610; 85730; 86140; 86850; 86900; 86901; 93005; 93010; 99285-25; J0131; J1644

== ENCOUNTER 2024-02-14 12:44 | Emergency (ER) | payer OTHER ==
[2024-02-14 13:09] VITALS: BP 185/81; PULSE 76; RESP 16; TEMP 98.6; BMI 24.3
== END 2024-02-14 16:08 | disposition home or self-care (01) ==
LOC: JER 12:44
DX: Z45.2 Encounter for adjustment and management of vascular access device (principal); I12.0 Hypertensive chronic kidney disease with stage 5 chronic kidney disease or end stage renal disease; N18.6 End stage renal disease
CPT/HCPCS: 99283-25

== ENCOUNTER 2024-02-28 01:20 | Inpatient (IN) | payer OTHER ==
[2024-02-28 01:39] VITALS: BMI 27.2
[2024-02-28] MEDS ORDERED: ACETAMINOPHEN INJECTION 100 ML ONE ×2 (02:05→07:57)
[2024-02-28] MEDS ORDERED: ONDANSETRON 4 MG/2 ML VIAL ONE (02:05)
[2024-02-28] MEDS ORDERED: FAMOTIDINE 20 MG/50 ML IVPB 20 MG/50 ML MG IVPB ONE (02:05)
[2024-02-28] MEDS: ACETAMINOPHEN 1000 MG/100 ML BAG IVPB ONE ×2 (02:41→08:08)
[2024-02-28] MEDS: FAMOTIDINE 20 MG/50 ML IVPB 20 MG/50 ML MG IVPB ONE (02:42)
[2024-02-28] MEDS: ONDANSETRON 4 MG/2 ML VIAL IVPUSH ONE (02:42)
[2024-02-28 02:46] LABS: BASO % 0.2 % (0-2.0); EOS % 0.2 % (0-4.5); HEMATOCRIT 45.3 % (35.4-49); HEMOGLOBIN 14.6 GM/dL (11.7-16.9); LYMPH % 8.5 % (8-40); MCH 29.5 pg (25.7-33.7); MCHC 32.1 g/dl (32.0-35.9); MEAN CELL VOLUME 91.8 fl (80-96); MEAN PLT VOLUME 7.4 fl (7.5-11.1); MONO % 6.8 % (3.8-10.2); NEUT % 84.3 % (42.8-82.8); PLATELET COUNT 305 10^3/uL (134-434); RBC 4.94 M/mm3 (4.00-5.60); RDW 17.1 % (11.9-15.9); WHITE BLOOD COUNT 13.4 K/mm3 (4.0-10.0)
[2024-02-28 02:54] LABS: INR 1.12 (0.83-1.09); PROTHROMBIN TIME (PATIENT) 12.8 SEC (9.7-13.0)
[2024-02-28 02:57] LABS: ACTIVATED PTT 36.2 SECONDS (25.2-36.5)
[2024-02-28] MEDS ORDERED: PANTOPRAZOLE SODIUM 40 MG VIAL ONE (03:05)
[2024-02-28] MEDS: PANTOPRAZOLE SODIUM 40 MG VIAL IVPUSH ONE (03:10)
[2024-02-28 03:11] LABS: CHLORIDE 91 mmol/L (98-107); SODIUM 130 mmol/L (136-145)
[2024-02-28 03:13] LABS: CALCIUM 9.6 mg/dL (8.5-10.1)
[2024-02-28 03:14] LABS: ALBUMIN 3.2 g/dl (3.4-5.0); CO2 31 mmol/L (21-32); GLUCOSE,RANDOM 248 mg/dL (74-106); MAGNESIUM 2.5 mg/dL (1.8-2.4)
[2024-02-28 03:16] LABS: CREATININE 7.2 mg/dL (0.55-1.3)
[2024-02-28 03:18] LABS: BILIRUBIN,TOTAL 0.4 mg/dL (0.2-1); TOT PROT 10.7 g/dl (6.4-8.2)
[2024-02-28 03:19] LABS: ALK PHOS 175 U/L (45-117)
[2024-02-28 03:22] LABS: ANION GAP 8 mmol/L (4-13); POTASSIUM > 10.0 mmol/L (3.5-5.1); SGOT/AST 166 U/L (15-37); SGPT/ALT 59 U/L (13-61)
[2024-02-28 04:31] LABS: POTASSIUM 3.5 mmol/L (3.5-5.1)
[2024-02-28 04:33] LABS: ALBUMIN 3.2 g/dl (3.4-5.0); CALCIUM 9.5 mg/dL (8.5-10.1)
[2024-02-28 04:34] LABS: BLOOD UREA NITROGEN 35.8 mg/dL (7-18)
[2024-02-28 04:37] LABS: CREATININE 7.1 mg/dL (0.55-1.3)
[2024-02-28 04:38] LABS: BILIRUBIN,TOTAL 0.4 mg/dL (0.2-1); TOT PROT 8.9 g/dl (6.4-8.2)
[2024-02-28] MEDS ORDERED: ACETAMINOPHEN 1000 MG/100 ML BAG IVPB PRN (11:49)
[2024-02-28] MEDS: ACETAMINOPHEN 325 MG TABLET (FP) PO PRN (12:24)
[2024-02-28] MEDS: PIPERACILLIN/TAZOB 2.25 GM 2.25 GM in DEXTROSE 5%-WATER - 50 ML IVPB SCH ×2 (12:25→21:41)
[2024-02-28] MEDS ORDERED: SODIUM CHLORIDE 250 ML IV PRN (12:56)
[2024-02-28] MEDS: NIFEdipine E.R 60 MG TABLET PO SCH (13:55)
[2024-02-28] MEDS: ONDANSETRON 4 MG/2 ML VIAL IVPUSH PRN (14:21)
[2024-02-28] MEDS: oxyCODONE HCL 5 MG TABLET PO PRN (14:21)
[2024-02-28] MEDS: INSULIN ASPART SLIDING SCALE (NOVOLOG) 1 VIAL SQ SCH (18:43)
[2024-02-28] MEDS: LABETALOL HCL 100 MG TABLET (FP) PO SCH (21:42)
[2024-02-28] MEDS: ATORVASTATIN CA 80 MG TABLET (FP) PO SCH (21:42)
[2024-02-28] MEDS: INSULIN (LEVEMIR) 100 UNITS/ML UNITS SQ SCH (22:13)
[2024-02-29] MEDS: ACETAMINOPHEN 1000 MG/100 ML BAG IVPB ONE (04:32)
[2024-02-29] MEDS ORDERED: NIFEdipine E.R 60 MG TABLET PO SCH (10:00)
[2024-02-29 10:21] LABS: BASO % 0.5 % (0-2.0); EOS % 1.2 % (0-4.5); HEMATOCRIT 37.5 % (35.4-49); HEMOGLOBIN 11.9 GM/dL (11.7-16.9); LYMPH % 8.9 % (8-40); MCH 29.7 pg (25.7-33.7); MCHC 31.6 g/dl (32.0-35.9); MEAN CELL VOLUME 93.8 fl (80-96); MEAN PLT VOLUME 7.5 fl (7.5-11.1); MONO % 8.7 % (3.8-10.2); NEUT % 80.7 % (42.8-82.8); PLATELET COUNT 312 10^3/uL (134-434); RDW 16.9 % (11.9-15.9); WHITE BLOOD COUNT 17.7 K/mm3 (4.0-10.0)
[2024-02-29] MEDS: TORSEMIDE 100 MG TABLET PO SCH (10:33)
[2024-02-29] MEDS: PANTOPRAZOLE SODIUM 40 MG VIAL IVPUSH SCH (10:39)
[2024-02-29] MEDS: LISINOPRIL 20 MG TABLET PO SCH (10:42)
[2024-02-29 10:43] LABS: POTASSIUM 3.5 mmol/L (3.5-5.1)
[2024-02-29] MEDS: TAMSULOSIN HCL 0.4 MG CAP PO SCH (10:45)
[2024-02-29 10:53] LABS: ALBUMIN 3.2 g/dl (3.4-5.0); BLOOD UREA NITROGEN 26.5 mg/dL (7-18); CALCIUM 9.4 mg/dL (8.5-10.1)
[2024-02-29 10:58] LABS: BILIRUBIN,TOTAL 1.1 mg/dL (0.2-1); TOT PROT 8.6 g/dl (6.4-8.2)
[2024-02-29] MEDS: VANCOMYCIN/WATER FOR INJ (PEG) 1,000 MG/200 ML BAG IVPB ONE (15:08)
[2024-03-01 09:23] LABS: BASO % 0.7 % (0-2.0); EOS % 1.5 % (0-4.5); HEMATOCRIT 36.2 % (35.4-49); HEMOGLOBIN 11.6 GM/dL (11.7-16.9); MCH 29.8 pg (25.7-33.7); MEAN PLT VOLUME 7.6 fl (7.5-11.1); MONO % 8.8 % (3.8-10.2); PLATELET COUNT 297 10^3/uL (134-434); RBC 3.89 M/mm3 (4.00-5.60); RDW 16.7 % (11.9-15.9); WHITE BLOOD COUNT 10.6 K/mm3 (4.0-10.0)
[2024-03-01 09:41] LABS: CHLORIDE 96 mmol/L (98-107); POTASSIUM 3.8 mmol/L (3.5-5.1); SODIUM 137 mmol/L (136-145)
[2024-03-01 09:44] LABS: ALBUMIN 2.9 g/dl (3.4-5.0); ANION GAP 16 mmol/L (4-13); CO2 25 mmol/L (21-32)
[2024-03-01 09:45] LABS: GLUCOSE,RANDOM 150 mg/dL (74-106)
[2024-03-01 09:46] LABS: SGOT/AST 19 U/L (15-37); SGPT/ALT 25 U/L (13-61)
[2024-03-01 09:48] LABS: CREATININE 7.8 mg/dL (0.55-1.3)
[2024-03-01 09:49] LABS: TOT PROT 7.8 g/dl (6.4-8.2)
[2024-03-01 09:50] LABS: ALK PHOS 136 U/L (45-117); BILIRUBIN,TOTAL 1.5 mg/dL (0.2-1)
[2024-03-01] MEDS: INSULIN ASPART SLIDING SCALE (NOVOLOG) 1 VIAL SQ SCH (13:07)
[2024-03-01] MEDS ORDERED: SODIUM CHLORIDE 250 ML IV PRN (14:06)
[2024-03-01] MEDS: PANTOPRAZOLE 40 MG TABLET PO SCH (21:39)
[2024-03-02 07:11] VITALS: RESP 18
[2024-03-02 10:36] LABS: MAGNESIUM 1.9 mg/dL (1.8-2.4)
[2024-03-02 10:39] LABS: PHOSPHOROUS 5.4 mg/dL (2.5-4.9)
[2024-03-02 13:13] LABS: HEMATOCRIT 33.2 % (35.4-49); HEMOGLOBIN 10.8 GM/dL (11.7-16.9); MCH 30.3 pg (25.7-33.7); MCHC 32.4 g/dl (32.0-35.9); MEAN CELL VOLUME 93.5 fl (80-96); MEAN PLT VOLUME 7.3 fl (7.5-11.1); PLATELET COUNT 265 10^3/uL (134-434); RBC 3.55 M/mm3 (4.00-5.60); RDW 16.5 % (11.9-15.9); WHITE BLOOD COUNT 8.8 K/mm3 (4.0-10.0)
[2024-03-02 13:39] LABS: CHLORIDE 94 mmol/L (98-107); POTASSIUM 3.5 mmol/L (3.5-5.1); SODIUM 136 mmol/L (136-145)
[2024-03-02 13:41] LABS: ALBUMIN 2.7 g/dl (3.4-5.0); CALCIUM 8.4 mg/dL (8.5-10.1)
[2024-03-02 13:42] LABS: ANION GAP 18 mmol/L (4-13); BLOOD UREA NITROGEN 55.8 mg/dL (7-18); CO2 23 mmol/L (21-32); GLUCOSE,RANDOM 168 mg/dL (74-106)
[2024-03-02 13:45] LABS: SGOT/AST 20 U/L (15-37); SGPT/ALT 24 U/L (13-61)
[2024-03-02 13:46] LABS: BILIRUBIN,TOTAL 0.6 mg/dL (0.2-1); TOT PROT 7.4 g/dl (6.4-8.2)
[2024-03-02 13:47] LABS: ALK PHOS 125 U/L (45-117)
[2024-03-02 13:49] LABS: CREATININE 9.8 mg/dL (0.55-1.3)
[2024-03-03 09:26] VITALS: BP 152/82; PULSE 91; TEMP 98.8
== END 2024-03-03 11:55 | disposition home or self-care (01) | DRG 391 ==
LOC: JER 01:20 → JERBED 05:58 → J7W 11:09 → OBSVTOIN 11:34 → J5S 02-29 14:28
PROVIDERS: ADMIT Internal Medicine
PROC: 5A1D70Z Performance of Urinary Filtration, Intermittent, Less than 6 Hours Per Day (ICD-10-PCS; 2024-02-28)
PROC: 0DB68ZX Excision of Stomach, Via Natural or Artificial Opening Endoscopic, Diagnostic (ICD-10-PCS; 2024-03-01)
PROC: 0DB58ZX Excision of Esophagus, Via Natural or Artificial Opening Endoscopic, Diagnostic (ICD-10-PCS; principal; 2024-03-01 12:15)
DX: K20.80 Other esophagitis without bleeding (principal); N18.6 End stage renal disease; I13.2 Hypertensive heart and chronic kidney disease with heart failure and with stage 5 chronic kidney disease, or end stage renal disease; Z99.2 Dependence on renal dialysis; E78.5 Hyperlipidemia, unspecified; E11.22 Type 2 diabetes mellitus with diabetic chronic kidney disease; Z79.4 Long term (current) use of insulin; E11.51 Type 2 diabetes mellitus with diabetic peripheral angiopathy without gangrene; I25.10 Atherosclerotic heart disease of native coronary artery without angina pectoris; I50.9 Heart failure, unspecified; N40.0 Benign prostatic hyperplasia without lower urinary tract symptoms; D64.9 Anemia, unspecified; E11.43 Type 2 diabetes mellitus with diabetic autonomic (poly)neuropathy; K31.84 Gastroparesis
CPT/HCPCS: 0241U-QW; 36415; 36589; 71045-TC-FY; 71250-TC; 74177-TC; 80053; 82962; 83605; 83690; 83735; 84100; 84484; 85025; 85027; 85610; 85730; 87040; 87340; 88305-TC; 88342-TC; 93005; 93010; 99285-25; G0378; J0131; Q9967

== ENCOUNTER 2024-03-06 08:12 | Inpatient (IN) | payer OTHER ==
[2024-03-06] MEDS: SODIUM CHLORIDE 0.9% 500 ML INFUS.BAG IV ONE (10:40)
[2024-03-06 10:46] LABS: BASO % 0.9 % (0-2.0); EOS % 5.6 % (0-4.5); HEMATOCRIT 41.8 % (35.4-49); HEMOGLOBIN 13.5 GM/dL (11.7-16.9); LYMPH % 16.8 % (8-40); MCHC 32.3 g/dl (32.0-35.9); MEAN CELL VOLUME 92.8 fl (80-96); MEAN PLT VOLUME 7.4 fl (7.5-11.1); MONO % 9.5 % (3.8-10.2); NEUT % 67.2 % (42.8-82.8); PLATELET COUNT 279 10^3/uL (134-434); RBC 4.51 M/mm3 (4.00-5.60); RDW 17.4 % (11.9-15.9); WHITE BLOOD COUNT 8.8 K/mm3 (4.0-10.0)
[2024-03-06 11:05] LABS: CHLORIDE 92 mmol/L (98-107); POTASSIUM 3.4 mmol/L (3.5-5.1); SODIUM 137 mmol/L (136-145)
[2024-03-06 11:08] LABS: ANION GAP 20 mmol/L (4-13); BLOOD UREA NITROGEN 62.5 mg/dL (7-18); CO2 25 mmol/L (21-32); GLUCOSE,RANDOM 134 mg/dL (74-106); MAGNESIUM 1.8 mg/dL (1.8-2.4)
[2024-03-06 11:10] LABS: ALBUMIN 3.5 g/dl (3.4-5.0); SGOT/AST 31 U/L (15-37); SGPT/ALT 41 U/L (13-61)
[2024-03-06 11:12] LABS: BILIRUBIN,TOTAL 0.7 mg/dL (0.2-1); PHOSPHOROUS 4.1 mg/dL (2.5-4.9); TOT PROT 8.9 g/dl (6.4-8.2)
[2024-03-06] MEDS ORDERED: SODIUM CHLORIDE 250 ML IV PRN (11:19)
[2024-03-06 11:50] LABS: ALK PHOS 164 U/L (45-117); CREATININE 11.9 mg/dL (0.55-1.3)
[2024-03-06 12:03] LABS: HIV INTERPRETATION NEGATIVE (NEGATIVE)
[2024-03-06] MEDS ORDERED: ATORVASTATIN CA 80 MG TABLET (FP) ONE (21:32)
[2024-03-06] MEDS ORDERED: HEPARIN NA (PORCINE) 5,000 UNITS/ML 1ML VIAL ONE (21:32)
[2024-03-06] MEDS ORDERED: PANTOPRAZOLE 40 MG TABLET PO ONE (21:32)
[2024-03-06] MEDS ORDERED: LABETALOL HCL 100 MG TABLET (FP) ONE (21:36)
[2024-03-06] MEDS ORDERED: LABETALOL HCL 200 MG TABLET (FP) ONE (21:37)
[2024-03-06] MEDS ORDERED: INSULIN (LEVEMIR) 100 UNITS/ML UNITS SQ ONE (21:38)
[2024-03-06] MEDS: HEPARIN NA (PORCINE) 5,000 UNITS/ML 1ML VIAL SQ SCH (21:48)
[2024-03-06] MEDS: ATORVASTATIN CA 80 MG TABLET (FP) PO SCH (21:48)
[2024-03-06] MEDS: INSULIN (LEVEMIR) 100 UNITS/ML UNITS SQ SCH (21:48)
[2024-03-06] MEDS: PANTOPRAZOLE 40 MG TABLET PO SCH (21:49)
[2024-03-06] MEDS: LABETALOL HCL 200 MG TABLET (FP) PO SCH (21:49)
[2024-03-07] MEDS ORDERED: ACETAMINOPHEN 325 MG TABLET (FP) ONE (02:19)
[2024-03-07] MEDS: ACETAMINOPHEN 325 MG TABLET (FP) PO ONE (02:23)
[2024-03-07] MEDS: oxyCODONE HCL 5 MG TABLET PO ONE ×2 (04:13→04:17)
[2024-03-07 06:02] LABS: BASO % 0.9 % (0-2.0); EOS % 5.6 % (0-4.5); HEMATOCRIT 36.8 % (35.4-49); LYMPH % 16.6 % (8-40); MCH 30.6 pg (25.7-33.7); MCHC 32.7 g/dl (32.0-35.9); MEAN CELL VOLUME 93.7 fl (80-96); MEAN PLT VOLUME 7.4 fl (7.5-11.1); MONO % 11.3 % (3.8-10.2); NEUT % 65.6 % (42.8-82.8); PLATELET COUNT 231 10^3/uL (134-434); RBC 3.93 M/mm3 (4.00-5.60); RDW 17.5 % (11.9-15.9); WHITE BLOOD COUNT 7.8 K/mm3 (4.0-10.0)
[2024-03-07 06:28] LABS: CALCIUM 8.3 mg/dL (8.5-10.1); CHLORIDE 97 mmol/L (98-107); POTASSIUM 3.6 mmol/L (3.5-5.1); SODIUM 139 mmol/L (136-145)
[2024-03-07 06:29] LABS: ANION GAP 15 mmol/L (4-13); BLOOD UREA NITROGEN 43.4 mg/dL (7-18); CO2 27 mmol/L (21-32); GLUCOSE,RANDOM 188 mg/dL (74-106)
[2024-03-07] MEDS: INSULIN ASPART SLIDING SCALE (NOVOLOG) 1 VIAL SQ SCH (08:00)
[2024-03-07] MEDS ORDERED: INSULIN ASPART SLIDING SCALE (NOVOLOG) 1 VIAL SQ ONE ×3 (08:41→22:16)
[2024-03-07] MEDS ORDERED: HEPARIN NA (PORCINE) 5,000 UNITS/ML 1ML VIAL ONE (09:21)
[2024-03-07] MEDS: CLOPIDOGREL BISULFATE 75 MG TABLET (FP) PO SCH (11:03)
[2024-03-07] MEDS: LABETALOL HCL 200 MG, LABETALOL HCL 100 MG PO SCH (11:03)
[2024-03-07] MEDS: NIFEdipine E.R 60 MG TABLET PO SCH (11:04)
[2024-03-07 12:29] VITALS: BMI 26.0
[2024-03-07 17:40] VITALS: RESP 18
[2024-03-07] MEDS ORDERED: INSULIN (LEVEMIR) 100 UNITS/ML UNITS SQ ONE (22:16)
[2024-03-07] MEDS: oxyCODONE HCL 5 MG TABLET PO PRN (23:57)
[2024-03-08] MEDS: diphenhydrAMINE HCL 25 MG CAPSULE (FP) PO ONE (09:37)
[2024-03-08] MEDS ORDERED: SODIUM CHLORIDE 250 ML IV PRN (15:36)
[2024-03-08 15:43] VITALS: PULSE 72; TEMP 98.4
[2024-03-08 17:13] VITALS: BP 137/71
[2024-03-08] MEDS: HEPARIN NA (PORCINE) 5,000 UNITS/ML 1ML VIAL IVPUSH ONE (17:24)
== END 2024-03-08 19:07 | disposition home or self-care (01) | DRG 312 ==
LOC: JER 08:12 → JERBED 11:46 → J4W 03-07 11:59 → OBSVTOIN 03-07 16:17
PROVIDERS: ADMIT Internal Medicine
PROC: 5A1D70Z Performance of Urinary Filtration, Intermittent, Less than 6 Hours Per Day (ICD-10-PCS; principal; 2024-03-08)
DX: I95.2 Hypotension due to drugs (principal); N18.6 End stage renal disease; B37.0 Candidal stomatitis; I13.2 Hypertensive heart and chronic kidney disease with heart failure and with stage 5 chronic kidney disease, or end stage renal disease; L97.508 Non-pressure chronic ulcer of other part of unspecified foot with other specified severity; T46.5X5A Adverse effect of other antihypertensive drugs, initial encounter; E11.621 Type 2 diabetes mellitus with foot ulcer; E78.5 Hyperlipidemia, unspecified; I25.10 Atherosclerotic heart disease of native coronary artery without angina pectoris; K57.90 Diverticulosis of intestine, part unspecified, without perforation or abscess without bleeding; R55 Syncope and collapse; R29.6 Repeated falls; E11.22 Type 2 diabetes mellitus with diabetic chronic kidney disease; N40.0 Benign prostatic hyperplasia without lower urinary tract symptoms; I50.9 Heart failure, unspecified; Z99.2 Dependence on renal dialysis; Z89.422 Acquired absence of other left toe(s); Z95.5 Presence of coronary angioplasty implant and graft; W18.30XA Fall on same level, unspecified, initial encounter; Y92.098 Other place in other non-institutional residence as the place of occurrence of the external cause
CPT/HCPCS: 36415; 70450-TC; 74176-TC; 80048; 80053; 82962; 83735; 84100; 84484; 85025; 86803; 87389; 93005; 93010; 99285-25; G0378; J1644

== ENCOUNTER 2024-03-23 10:19 | Inpatient (IN) | payer OTHER ==
[2024-03-23] MEDS ORDERED: FAMOTIDINE 20 MG/50 ML IVPB 20 MG/50 ML MG IVPB ONE (11:12)
[2024-03-23] MEDS: ONDANSETRON *ODT* 4 MG TABLET SL ONE (12:00)
[2024-03-23] MEDS: SODIUM CHLORIDE 0.9% 500 ML INFUS.BAG IV ONE (12:00)
[2024-03-23 12:02] LABS: BASO % 1.1 % (0-2.0); EOS % 3.1 % (0-4.5); HEMOGLOBIN 13.1 GM/dL (11.7-16.9); LYMPH % 13.8 % (8-40); MCH 29.4 pg (25.7-33.7); MCHC 31.8 g/dl (32.0-35.9); MEAN CELL VOLUME 92.5 fl (80-96); MEAN PLT VOLUME 7.8 fl (7.5-11.1); MONO % 8.3 % (3.8-10.2); NEUT % 73.7 % (42.8-82.8); PLATELET COUNT 304 10^3/uL (134-434); RBC 4.44 M/mm3 (4.00-5.60); RDW 17.1 % (11.9-15.9)
[2024-03-23 12:08] LABS: INR 1.15 (0.83-1.09); PROTHROMBIN TIME (PATIENT) 12.9 SEC (9.7-13.0)
[2024-03-23] MEDS ORDERED: ONDANSETRON *ODT* 4 MG TABLET ONE (12:09)
[2024-03-23 12:10] LABS: ACTIVATED PTT 25.6 SECONDS (25.2-36.5)
[2024-03-23 12:21] LABS: CHLORIDE 95 mmol/L (98-107); POTASSIUM 5.3 mmol/L (3.5-5.1); SODIUM 134 mmol/L (136-145)
[2024-03-23 12:25] LABS: ALBUMIN 2.6 g/dl (3.4-5.0); ANION GAP 11 mmol/L (4-13); BLOOD UREA NITROGEN 73.3 mg/dL (7-18); CALCIUM 8.6 mg/dL (8.5-10.1); CO2 27 mmol/L (21-32); GLUCOSE,RANDOM 168 mg/dL (74-106); MAGNESIUM 2.1 mg/dL (1.8-2.4)
[2024-03-23] MEDS ORDERED: SODIUM CHLORIDE 250 ML IV PRN (12:25)
[2024-03-23 12:28] LABS: PHOSPHOROUS 6.5 mg/dL (2.5-4.9); SGOT/AST 62 U/L (15-37); SGPT/ALT 39 U/L (13-61)
[2024-03-23 12:29] LABS: BILIRUBIN,TOTAL 0.8 mg/dL (0.2-1); CREATININE 12.3 mg/dL (0.55-1.3)
[2024-03-23 12:30] LABS: TOT PROT 8.1 g/dl (6.4-8.2)
[2024-03-23 12:31] LABS: ALK PHOS 130 U/L (45-117)
[2024-03-23] MEDS: ASPIRIN 81 MG CHEWABLE TABLETS PO ONE (12:40)
[2024-03-23] MEDS ORDERED: ASPIRIN 81 MG CHEWABLE TABLETS ONE (13:34)
[2024-03-23] MEDS ORDERED: PANTOPRAZOLE 40 MG TABLET PO ONE (21:57)
[2024-03-23] MEDS ORDERED: LABETALOL HCL 200 MG TABLET (FP) ONE (21:57)
[2024-03-23] MEDS ORDERED: HEPARIN NA (PORCINE) 5,000 UNITS/ML 1ML VIAL ONE (21:57)
[2024-03-23] MEDS ORDERED: ATORVASTATIN CA 80 MG TABLET (FP) ONE (21:57)
[2024-03-23] MEDS ORDERED: LABETALOL HCL 100 MG TABLET (FP) ONE (21:57)
[2024-03-23] MEDS ORDERED: DOXYCYCLINE HYCLATE 100 MG CAPSULE PO ONE (21:57)
[2024-03-23] MEDS: ATORVASTATIN CA 80 MG TABLET (FP) PO SCH (22:04)
[2024-03-23] MEDS: PANTOPRAZOLE 40 MG TABLET PO SCH (22:04)
[2024-03-23] MEDS: LABETALOL HCL 100 MG TABLET (FP) PO SCH (22:04)
[2024-03-23] MEDS: HEPARIN NA (PORCINE) 5,000 UNITS/ML 1ML VIAL SQ SCH (22:04)
[2024-03-23] MEDS: DOXYCYCLINE HYCLATE 100 MG CAPSULE PO SCH (22:04)
[2024-03-23] MEDS ORDERED: INSULIN ASPART SLIDING SCALE (NOVOLOG) 1 VIAL SQ ONE (22:19)
[2024-03-23] MEDS ORDERED: INSULIN (LEVEMIR) 100 UNITS/ML UNITS SQ ONE (22:19)
[2024-03-23] MEDS: INSULIN (LEVEMIR) 100 UNITS/ML UNITS SQ SCH (22:23)
[2024-03-23] MEDS: INSULIN ASPART SLIDING SCALE (NOVOLOG) 1 VIAL SQ SCH (22:24)
[2024-03-23] MEDS ORDERED: MEROPENEM 1 GM VIAL (RESTRICTED TO ID) IVPB ONE (22:25)
[2024-03-23] MEDS: MEROPENEM 1 GM in DEXTROSE 5%-WATER 100 ML IVPB SCH (22:28)
[2024-03-24 05:02] VITALS: BMI 24.0
[2024-03-24 08:51] LABS: BASO % 1.5 % (0-2.0); HEMATOCRIT 35.5 % (35.4-49); HEMOGLOBIN 11.2 GM/dL (11.7-16.9); LYMPH % 15.7 % (8-40); MCH 29.4 pg (25.7-33.7); MCHC 31.6 g/dl (32.0-35.9); MEAN CELL VOLUME 92.9 fl (80-96); MEAN PLT VOLUME 7.8 fl (7.5-11.1); MONO % 9.7 % (3.8-10.2); NEUT % 70.1 % (42.8-82.8); PLATELET COUNT 275 10^3/uL (134-434); RBC 3.82 M/mm3 (4.00-5.60); RDW 16.8 % (11.9-15.9); WHITE BLOOD COUNT 8.1 K/mm3 (4.0-10.0)
[2024-03-24 09:07] LABS: POTASSIUM 3.4 mmol/L (3.5-5.1)
[2024-03-24 09:16] LABS: CREATININE 7.4 mg/dL (0.55-1.3)
[2024-03-24 09:33] LABS: BLOOD UREA NITROGEN 35.9 mg/dL (7-18)
[2024-03-24] MEDS: NIFEdipine E.R 60 MG TABLET PO SCH (09:55)
[2024-03-24] MEDS: TAMSULOSIN HCL 0.4 MG CAP PO SCH (09:55)
[2024-03-24] MEDS: LISINOPRIL 20 MG TABLET PO SCH (09:56)
[2024-03-24] MEDS: CLOPIDOGREL BISULFATE 75 MG TABLET (FP) PO SCH (09:56)
[2024-03-24] MEDS ORDERED: SODIUM CHLORIDE 250 ML IV PRN (10:43)
[2024-03-24] MEDS: POTASSIUM CHLORIDE ORAL LIQUID 20 MEQ/15 ML PO ONE (12:24)
[2024-03-24] MEDS: MEROPENEM 1 GM in DEXTROSE 5%-WATER 100 ML IVPB SCH (13:35)
[2024-03-24] MEDS ORDERED: INSULIN ASPART SLIDING SCALE (NOVOLOG) 1 VIAL SQ ONE (17:16)
[2024-03-24] MEDS: MEROPENEM 500 MG in DEXTROSE 5%-WATER 100 ML IVPB SCH (22:15)
[2024-03-24] MEDS: oxyCODONE HCL 5 MG TABLET PO PRN (23:02)
[2024-03-25] MEDS: ACETAMINOPHEN 325 MG TABLET (FP) PO PRN (09:33)
[2024-03-25 10:45] LABS: HEMATOCRIT 32.9 % (35.4-49); HEMOGLOBIN 10.5 GM/dL (11.7-16.9); MCH 29.2 pg (25.7-33.7); MCHC 31.9 g/dl (32.0-35.9); MEAN CELL VOLUME 91.3 fl (80-96); MEAN PLT VOLUME 7.5 fl (7.5-11.1); PLATELET COUNT 288 10^3/uL (134-434); RBC 3.61 M/mm3 (4.00-5.60); WHITE BLOOD COUNT 7.5 K/mm3 (4.0-10.0)
[2024-03-25 11:12] LABS: CHLORIDE 100 mmol/L (98-107); POTASSIUM 3.5 mmol/L (3.5-5.1); SODIUM 139 mmol/L (136-145)
[2024-03-25 11:14] LABS: ANION GAP 12 mmol/L (4-13); BLOOD UREA NITROGEN 37.2 mg/dL (7-18); CO2 27 mmol/L (21-32); GLUCOSE,RANDOM 138 mg/dL (74-106)
[2024-03-25 11:27] LABS: CREATININE 7.9 mg/dL (0.55-1.3)
[2024-03-25] MEDS: oxyCODONE HCL 5 MG TABLET PO ONE ×2 (18:03→22:45)
[2024-03-26 08:05] LABS: BASO % 1.3 % (0-2.0); EOS % 3.9 % (0-4.5); HEMATOCRIT 35.1 % (35.4-49); HEMOGLOBIN 10.9 GM/dL (11.7-16.9); LYMPH % 17.5 % (8-40); MCH 29.1 pg (25.7-33.7); MCHC 31.2 g/dl (32.0-35.9); MEAN CELL VOLUME 93.5 fl (80-96); MEAN PLT VOLUME 7.4 fl (7.5-11.1); MONO % 10.3 % (3.8-10.2); PLATELET COUNT 309 10^3/uL (134-434); RBC 3.75 M/mm3 (4.00-5.60); WHITE BLOOD COUNT 8.5 K/mm3 (4.0-10.0)
[2024-03-26 08:09] LABS: POTASSIUM 3.8 mmol/L (3.5-5.1)
[2024-03-26 08:11] LABS: CALCIUM 8.2 mg/dL (8.5-10.1)
[2024-03-26 08:12] LABS: ALBUMIN 2.2 g/dl (3.4-5.0); MAGNESIUM 1.6 mg/dL (1.8-2.4)
[2024-03-26 08:15] LABS: CREATININE 6.6 mg/dL (0.55-1.3)
[2024-03-26 08:17] LABS: BILIRUBIN,TOTAL 0.7 mg/dL (0.2-1); TOT PROT 6.8 g/dl (6.4-8.2)
[2024-03-26] MEDS: oxyCODONE HCL 5 MG TABLET PO PRN (12:30)
[2024-03-26] MEDS: MAGNESIUM SULF 50% (8.12 MEQ/2 ML-1 GM VIAL) IVPB ONE (17:30)
[2024-03-27 07:50] LABS: BASO % 1.1 % (0-2.0); EOS % 4.7 % (0-4.5); HEMATOCRIT 34.5 % (35.4-49); HEMOGLOBIN 10.9 GM/dL (11.7-16.9); LYMPH % 17.2 % (8-40); MCH 29.4 pg (25.7-33.7); MCHC 31.6 g/dl (32.0-35.9); MEAN PLT VOLUME 7.4 fl (7.5-11.1); MONO % 9.2 % (3.8-10.2); NEUT % 67.8 % (42.8-82.8); PLATELET COUNT 332 10^3/uL (134-434); RBC 3.71 M/mm3 (4.00-5.60); RDW 17.3 % (11.9-15.9); WHITE BLOOD COUNT 8.4 K/mm3 (4.0-10.0)
[2024-03-27 07:54] LABS: HEMATOCRIT 34.7 % (35.4-49); HEMOGLOBIN 10.9 GM/dL (11.7-16.9); MCH 29.4 pg (25.7-33.7); MCHC 31.3 g/dl (32.0-35.9); MEAN CELL VOLUME 93.9 fl (80-96); MEAN PLT VOLUME 7.3 fl (7.5-11.1); PLATELET COUNT 332 10^3/uL (134-434); RBC 3.69 M/mm3 (4.00-5.60); RDW 17.4 % (11.9-15.9); WHITE BLOOD COUNT 8.4 K/mm3 (4.0-10.0)
[2024-03-27 08:12] LABS: CHLORIDE 98 mmol/L (98-107); POTASSIUM 4.2 mmol/L (3.5-5.1); SODIUM 136 mmol/L (136-145)
[2024-03-27 08:14] LABS: CALCIUM 8.3 mg/dL (8.5-10.1)
[2024-03-27 08:15] LABS: ALBUMIN 2.2 g/dl (3.4-5.0); ANION GAP 10 mmol/L (4-13); BLOOD UREA NITROGEN 34.6 mg/dL (7-18); CO2 29 mmol/L (21-32); GLUCOSE,RANDOM 152 mg/dL (74-106)
[2024-03-27 08:18] LABS: SGOT/AST 22 U/L (15-37); SGPT/ALT 26 U/L (13-61)
[2024-03-27 08:19] LABS: BILIRUBIN,TOTAL 0.6 mg/dL (0.2-1); CREATININE 8.3 mg/dL (0.55-1.3)
[2024-03-27 08:20] LABS: TOT PROT 6.8 g/dl (6.4-8.2)
[2024-03-27 08:21] LABS: ALK PHOS 133 U/L (45-117)
[2024-03-27] MEDS ORDERED: SODIUM CHLORIDE 250 ML IV PRN (10:00)
[2024-03-27] MEDS: EPOETIN ALFA-EPBX 4,000 UNIT/ML VIAL SQ ONE (11:29)
[2024-03-29] MEDS: CLOTRIMAZOLE 1% CREAM TP SCH (09:20)
[2024-03-29] MEDS ORDERED: SODIUM CHLORIDE 250 ML IV PRN (14:54)
[2024-03-29] MEDS: oxyCODONE HCL 5 MG TABLET PO ONE (22:51)
[2024-03-30] MEDS: EPOETIN ALFA-EPBX 4,000 UNIT/ML VIAL SQ ONE (10:59)
[2024-03-30 11:06] VITALS: RESP 18
[2024-03-30 11:28] LABS: HEMATOCRIT 33.5 % (35.4-49); HEMOGLOBIN 10.7 GM/dL (11.7-16.9); MCH 29.2 pg (25.7-33.7); MCHC 31.8 g/dl (32.0-35.9); MEAN CELL VOLUME 91.9 fl (80-96); MEAN PLT VOLUME 7.3 fl (7.5-11.1); PLATELET COUNT 386 10^3/uL (134-434); RBC 3.65 M/mm3 (4.00-5.60); RDW 17.3 % (11.9-15.9); WHITE BLOOD COUNT 8.2 K/mm3 (4.0-10.0)
[2024-03-30 11:41] LABS: CHLORIDE 98 mmol/L (98-107); POTASSIUM 4.8 mmol/L (3.5-5.1); SODIUM 137 mmol/L (136-145)
[2024-03-30 11:47] LABS: CALCIUM 8.9 mg/dL (8.5-10.1)
[2024-03-30 11:49] LABS: ALBUMIN 2.2 g/dl (3.4-5.0); ANION GAP 14 mmol/L (4-13); BLOOD UREA NITROGEN 53.8 mg/dL (7-18); CO2 25 mmol/L (21-32); GLUCOSE,RANDOM 148 mg/dL (74-106)
[2024-03-30 11:51] LABS: SGOT/AST 32 U/L (15-37); SGPT/ALT 28 U/L (13-61)
[2024-03-30 11:52] LABS: BILIRUBIN,TOTAL 0.6 mg/dL (0.2-1)
[2024-03-30 11:53] LABS: ALK PHOS 141 U/L (45-117); TOT PROT 6.9 g/dl (6.4-8.2)
[2024-03-30 12:00] LABS: CREATININE 9.9 mg/dL (0.55-1.3)
[2024-03-31 07:48] LABS: POTASSIUM 4.3 mmol/L (3.5-5.1)
[2024-03-31 07:53] LABS: ALBUMIN 2.2 g/dl (3.4-5.0); BLOOD UREA NITROGEN 34.3 mg/dL (7-18); CALCIUM 8.6 mg/dL (8.5-10.1)
[2024-03-31 07:58] LABS: BILIRUBIN,TOTAL 0.5 mg/dL (0.2-1); TOT PROT 7.1 g/dl (6.4-8.2)
[2024-03-31 11:53] VITALS: BP 127/75; PULSE 86; TEMP 97.9
[2024-03-31] MEDS ORDERED: SODIUM CHLORIDE 250 ML IV PRN (12:03)
[2024-03-31] MEDS: ERTAPENEM SODIUM 0.5 GM in SODIUM CHLORIDE 50 ML IVPB SCH (12:38)
== END 2024-03-31 17:25 | disposition home or self-care (01) | DRG 356 ==
LOC: JER 10:19 → JERBED 16:48 → J4W 03-24 04:32
PROVIDERS: ADMIT Internal Medicine; ATTEND Internal Medicine
PROC: 5A1D70Z Performance of Urinary Filtration, Intermittent, Less than 6 Hours Per Day (ICD-10-PCS; 2024-03-27)
PROC: 0JBR0ZZ Excision of Left Foot Subcutaneous Tissue and Fascia, Open Approach (ICD-10-PCS; 2024-03-30)
PROC: 5A1D70Z Performance of Urinary Filtration, Intermittent, Less than 6 Hours Per Day (ICD-10-PCS; 2024-03-30)
PROC: 02HV33Z Insertion of Infusion Device into Superior Vena Cava, Percutaneous Approach (ICD-10-PCS; principal; 2024-03-31)
PROC: B518ZZA Fluoroscopy of Superior Vena Cava, Guidance (ICD-10-PCS; 2024-03-31)
DX: R11.2 Nausea with vomiting, unspecified (principal); N18.6 End stage renal disease; L97.528 Non-pressure chronic ulcer of other part of left foot with other specified severity; I13.2 Hypertensive heart and chronic kidney disease with heart failure and with stage 5 chronic kidney disease, or end stage renal disease; M86.672 Other chronic osteomyelitis, left ankle and foot; I25.10 Atherosclerotic heart disease of native coronary artery without angina pectoris; N40.0 Benign prostatic hyperplasia without lower urinary tract symptoms; K57.90 Diverticulosis of intestine, part unspecified, without perforation or abscess without bleeding; D64.9 Anemia, unspecified; E11.51 Type 2 diabetes mellitus with diabetic peripheral angiopathy without gangrene; E11.69 Type 2 diabetes mellitus with other specified complication; E11.621 Type 2 diabetes mellitus with foot ulcer; E78.5 Hyperlipidemia, unspecified; E11.22 Type 2 diabetes mellitus with diabetic chronic kidney disease; I50.9 Heart failure, unspecified; T36.95XA Adverse effect of unspecified systemic antibiotic, initial encounter; Z99.2 Dependence on renal dialysis; Z95.5 Presence of coronary angioplasty implant and graft
CPT/HCPCS: 36415; 36558; 71045-TC-FY; 74177-TC; 75820-TC-FY; 80048; 80053; 80307; 82962; 83605; 83690; 83735; 83880; 84100; 84484; 85025; 85027; 85610; 85730; 87040; 87045; 87046; 87324; 87340; 87449; 93005; 93010; 99285-25; G0480; J1644; Q0162; Q5106; Q9967

== ENCOUNTER 2024-04-03 09:40 | Inpatient (IN) | payer OTHER ==
[2024-04-03 11:45] LABS: BASO % 0.5 % (0-2.0); HEMATOCRIT 39.3 % (35.4-49); HEMOGLOBIN 12.6 GM/dL (11.7-16.9); LYMPH % 11.5 % (8-40); MCH 29.3 pg (25.7-33.7); MEAN CELL VOLUME 91.6 fl (80-96); MEAN PLT VOLUME 7.6 fl (7.5-11.1); MONO % 7.7 % (3.8-10.2); NEUT % 77.3 % (42.8-82.8); PLATELET COUNT 386 10^3/uL (134-434); RBC 4.29 M/mm3 (4.00-5.60); WHITE BLOOD COUNT 10.2 K/mm3 (4.0-10.0)
[2024-04-03 11:58] LABS: CHLORIDE 100 mmol/L (98-107); SODIUM 140 mmol/L (136-145)
[2024-04-03 12:01] LABS: CALCIUM 9.5 mg/dL (8.5-10.1)
[2024-04-03 12:02] LABS: ALBUMIN 2.5 g/dl (3.4-5.0); ANION GAP 7 mmol/L (4-13); BLOOD UREA NITROGEN 51.3 mg/dL (7-18); CO2 32 mmol/L (21-32); GLUCOSE,RANDOM 129 mg/dL (74-106); INR 1.04 (0.83-1.09); MAGNESIUM 2.1 mg/dL (1.8-2.4)
[2024-04-03 12:04] LABS: ACTIVATED PTT 24.9 SECONDS (25.2-36.5); SGPT/ALT 30 U/L (13-61)
[2024-04-03 12:05] LABS: CREATININE 8.4 mg/dL (0.55-1.3); SGOT/AST 38 U/L (15-37)
[2024-04-03 12:06] LABS: ALK PHOS 168 U/L (45-117); BILIRUBIN,TOTAL 0.5 mg/dL (0.2-1); TOT PROT 8.2 g/dl (6.4-8.2)
[2024-04-03] MEDS ORDERED: SODIUM CHLORIDE 250 ML IV PRN (18:13)
[2024-04-03] MEDS ORDERED: ACETAMINOPHEN 325 MG TABLET (FP) PO PRN (19:03)
[2024-04-03] MEDS ORDERED: PANTOPRAZOLE 40 MG TABLET PO ONE (22:09)
[2024-04-03] MEDS ORDERED: LABETALOL HCL 100 MG TABLET (FP) ONE (22:09)
[2024-04-03] MEDS ORDERED: HEPARIN NA (PORCINE) 5,000 UNITS/ML 1ML VIAL ONE (22:10)
[2024-04-03] MEDS ORDERED: LABETALOL HCL 200 MG TABLET (FP) ONE (22:10)
[2024-04-03] MEDS ORDERED: ATORVASTATIN CA 80 MG TABLET (FP) ONE (22:10)
[2024-04-03] MEDS: ATORVASTATIN CA 80 MG TABLET (FP) PO SCH (22:29)
[2024-04-03] MEDS: HEPARIN NA (PORCINE) 5,000 UNITS/ML 1ML VIAL SQ SCH (22:29)
[2024-04-03] MEDS: PANTOPRAZOLE 40 MG TABLET PO SCH (22:30)
[2024-04-03] MEDS: LABETALOL HCL 100 MG TABLET (FP) PO SCH (22:30)
[2024-04-04 07:36] LABS: BASO % 1.5 % (0-2.0); EOS % 4.1 % (0-4.5); HEMATOCRIT 33.5 % (35.4-49); HEMOGLOBIN 10.9 GM/dL (11.7-16.9); MCH 29.7 pg (25.7-33.7); MCHC 32.4 g/dl (32.0-35.9); MEAN CELL VOLUME 91.7 fl (80-96); MEAN PLT VOLUME 7.4 fl (7.5-11.1); MONO % 8.5 % (3.8-10.2); NEUT % 61.9 % (42.8-82.8); PLATELET COUNT 339 10^3/uL (134-434); RBC 3.66 M/mm3 (4.00-5.60); RDW 18.2 % (11.9-15.9); WHITE BLOOD COUNT 7.7 K/mm3 (4.0-10.0)
[2024-04-04 07:40] LABS: POTASSIUM 3.9 mmol/L (3.5-5.1)
[2024-04-04 07:46] LABS: BLOOD UREA NITROGEN 34.9 mg/dL (7-18); CALCIUM 8.6 mg/dL (8.5-10.1)
[2024-04-04 07:50] LABS: CREATININE 6.5 mg/dL (0.55-1.3)
[2024-04-04] MEDS: TAMSULOSIN HCL 0.4 MG CAP PO SCH (09:00)
[2024-04-04] MEDS ORDERED: LISINOPRIL 20 MG TABLET ONE (09:18)
[2024-04-04] MEDS ORDERED: CLOPIDOGREL BISULFATE 75 MG TABLET (FP) ONE (09:18)
[2024-04-04] MEDS ORDERED: TAMSULOSIN HCL 0.4 MG CAP ONE (09:19)
[2024-04-04] MEDS ORDERED: ERTAPENEM SODIUM 1 GM VIAL ONE (09:19)
[2024-04-04] MEDS ORDERED: NIFEdipine E.R 60 MG TABLET PO ONE (09:19)
[2024-04-04] MEDS ORDERED: HEPARIN NA (PORCINE) 5,000 UNITS/ML 1ML VIAL ONE (09:26)
[2024-04-04] MEDS ORDERED: PANTOPRAZOLE 40 MG TABLET PO ONE (09:26)
[2024-04-04] MEDS ORDERED: LABETALOL HCL 100 MG TABLET (FP) ONE (09:26)
[2024-04-04] MEDS ORDERED: ERTAPENEM SODIUM 1 GM VIAL IVPB SCH (10:00)
[2024-04-04] MEDS: ERTAPENEM SODIUM 1 GM in SODIUM CHLORIDE 50 ML IVPB SCH (10:36)
[2024-04-04] MEDS: LISINOPRIL 20 MG TABLET PO SCH (10:37)
[2024-04-04] MEDS: CLOPIDOGREL BISULFATE 75 MG TABLET (FP) PO SCH (10:37)
[2024-04-04] MEDS: NIFEdipine E.R 60 MG TABLET PO SCH (10:37)
[2024-04-04] MEDS: INSULIN ASPART SLIDING SCALE (NOVOLOG) 1 VIAL SQ SCH (10:37)
[2024-04-04] MEDS: INSULIN (LEVEMIR) 100 UNITS/ML UNITS SQ SCH (22:29)
[2024-04-04] MEDS ORDERED: ACETAMINOPHEN 1000 MG/100 ML BAG IVPB ONE (23:00)
[2024-04-04] MEDS: oxyCODONE HCL 5 MG TABLET PO ONE (23:19)
[2024-04-05] MEDS ORDERED: SODIUM CHLORIDE 250 ML IV PRN (00:03)
[2024-04-05 04:15] VITALS: RESP 18; BMI 25.1
[2024-04-05 12:13] LABS: CHLORIDE 99 mmol/L (98-107); POTASSIUM 4.4 mmol/L (3.5-5.1); SODIUM 136 mmol/L (136-145)
[2024-04-05 12:15] LABS: ALBUMIN 2.2 g/dl (3.4-5.0); ANION GAP 10 mmol/L (4-13); BLOOD UREA NITROGEN 45.8 mg/dL (7-18); CALCIUM 8.3 mg/dL (8.5-10.1); CO2 27 mmol/L (21-32); GLUCOSE,RANDOM 170 mg/dL (74-106); MAGNESIUM 1.8 mg/dL (1.8-2.4)
[2024-04-05 12:18] LABS: PHOSPHOROUS 6.9 mg/dL (2.5-4.9); SGOT/AST 27 U/L (15-37); SGPT/ALT 29 U/L (13-61)
[2024-04-05 12:20] LABS: BILIRUBIN,TOTAL 0.4 mg/dL (0.2-1); TOT PROT 6.9 g/dl (6.4-8.2)
[2024-04-05 12:21] LABS: ALK PHOS 141 U/L (45-117)
[2024-04-05 12:25] LABS: CREATININE 8.9 mg/dL (0.55-1.3)
[2024-04-05 15:16] VITALS: BP 145/65; PULSE 90; TEMP 98.1
== END 2024-04-05 19:11 | disposition home or self-care (01) | DRG 391 ==
LOC: JER 09:40 → INTOOBSV 16:51 → JERBED 16:51 → OBSVTOIN 20:28 → J6S 04-04 21:24
PROVIDERS: ADMIT Internal Medicine
PROC: 5A1D70Z Performance of Urinary Filtration, Intermittent, Less than 6 Hours Per Day (ICD-10-PCS; principal; 2024-04-03)
DX: R11.2 Nausea with vomiting, unspecified (principal); N18.6 End stage renal disease; I13.2 Hypertensive heart and chronic kidney disease with heart failure and with stage 5 chronic kidney disease, or end stage renal disease; M86.9 Osteomyelitis, unspecified; I25.10 Atherosclerotic heart disease of native coronary artery without angina pectoris; N40.0 Benign prostatic hyperplasia without lower urinary tract symptoms; I50.9 Heart failure, unspecified; Z99.2 Dependence on renal dialysis; E11.22 Type 2 diabetes mellitus with diabetic chronic kidney disease
CPT/HCPCS: 36415; 71045-TC-FY; 74176-TC; 80048; 80053; 82962; 83605; 83690; 83735; 84100; 84484; 85025; 85610; 85730; 86850; 86900; 86901; 93005; 93010; 99285-25; G0378; G0480; J1644

== ENCOUNTER 2024-04-16 10:17 | Inpatient (IN) | payer OTHER ==
[2024-04-16] MEDS ORDERED: NIFEdipine 10 MG CAPSULE (FP) PO ONE (10:36)
[2024-04-16 11:04] LABS: BASO % 0.9 % (0-2.0); HEMATOCRIT 33.7 % (35.4-49); HEMOGLOBIN 10.4 GM/dL (11.7-16.9); LYMPH % 12.6 % (8-40); MCH 28.7 pg (25.7-33.7); MCHC 30.9 g/dl (32.0-35.9); MEAN CELL VOLUME 92.9 fl (80-96); MEAN PLT VOLUME 7.4 fl (7.5-11.1); MONO % 9.7 % (3.8-10.2); NEUT % 69.8 % (42.8-82.8); PLATELET COUNT 314 10^3/uL (134-434); RBC 3.63 M/mm3 (4.00-5.60); RDW 18.5 % (11.9-15.9); WHITE BLOOD COUNT 8.5 K/mm3 (4.0-10.0)
[2024-04-16 11:09] LABS: INR 1.13 (0.83-1.09); PROTHROMBIN TIME (PATIENT) 12.7 SEC (9.7-13.0)
[2024-04-16 11:23] LABS: CHLORIDE 110 mmol/L (98-107); SODIUM 141 mmol/L (136-145)
[2024-04-16 11:25] LABS: ALBUMIN 2.6 g/dl (3.4-5.0); BLOOD UREA NITROGEN 56.6 mg/dL (7-18); CALCIUM 8.6 mg/dL (8.5-10.1); CO2 23 mmol/L (21-32); GLUCOSE,RANDOM 182 mg/dL (74-106)
[2024-04-16] MEDS ORDERED: CALCIUM GLUC IN NACL, ISO-OSM 1 GM/50 ML BAG IVPB ONE (11:27)
[2024-04-16 11:28] LABS: SGOT/AST 38 U/L (15-37); SGPT/ALT 22 U/L (13-61)
[2024-04-16] MEDS ORDERED: NIFEdipine E.R 60 MG TABLET PO ONE (11:28)
[2024-04-16] MEDS ORDERED: SODIUM ZIRCONIUM CYCLOSILICATE (LOKELMA) 10 GM PACKET ONE (11:28)
[2024-04-16] MEDS ORDERED: DEXTROSE 50%-WATER 25 GM/50 ML DISP.SYRIN ONE (11:28)
[2024-04-16 11:29] LABS: PHOSPHOROUS 6.6 mg/dL (2.5-4.9)
[2024-04-16 11:30] LABS: BILIRUBIN,TOTAL 0.6 mg/dL (0.2-1); TOT PROT 7.5 g/dl (6.4-8.2)
[2024-04-16] MEDS ORDERED: CALCIUM GLUCONATE 10% - 1,000 MG/10 ML VIAL ONE (11:30)
[2024-04-16 11:31] LABS: ALK PHOS 147 U/L (45-117)
[2024-04-16 11:39] LABS: ANION GAP 9 mmol/L (4-13); CREATININE 9.9 mg/dL (0.55-1.3); POTASSIUM 7.1 mmol/L (3.5-5.1)
[2024-04-16] MEDS ORDERED: INSULIN REGULAR HUMAN 100 UNITS/ML *VIAL ONE (11:53)
[2024-04-16] MEDS: CALCIUM GLUCONATE 10% - 1,000 MG/10 ML VIAL IVPB ONE (12:05)
[2024-04-16] MEDS: DEXTROSE 50%-WATER - 25 GM/50 ML VIAL IVPUSH ONE (12:05)
[2024-04-16] MEDS: NIFEdipine E.R 60 MG TABLET PO ONE (12:05)
[2024-04-16] MEDS: SODIUM ZIRCONIUM CYCLOSILICATE (LOKELMA) 5 GM PACKET PO SCH (12:05)
[2024-04-16] MEDS: INSULIN REGULAR HUMAN 100 UNITS/ML *VIAL IVPUSH ONE ×2 (12:05)
[2024-04-16] MEDS: DEXTROSE 25 % IN WATER 2.5 GM/10 ML SYRINGE IVPB ONE (12:05)
[2024-04-16 12:20] LABS: HIV INTERPRETATION NEGATIVE (NEGATIVE)
[2024-04-16 13:51] LABS: CHLORIDE 111 mmol/L (98-107); SODIUM 144 mmol/L (136-145)
[2024-04-16] MEDS ORDERED: LISINOPRIL 20 MG TABLET ONE (13:51)
[2024-04-16 13:53] LABS: CALCIUM 8.7 mg/dL (8.5-10.1); CO2 23 mmol/L (21-32)
[2024-04-16 13:54] LABS: BLOOD UREA NITROGEN 57.6 mg/dL (7-18); GLUCOSE,RANDOM 154 mg/dL (74-106)
[2024-04-16] MEDS: LISINOPRIL 20 MG TABLET PO ONE (13:58)
[2024-04-16 14:06] LABS: ANION GAP 10 mmol/L (4-13); CREATININE 10.1 mg/dL (0.55-1.3); POTASSIUM 6.2 mmol/L (3.5-5.1)
[2024-04-16] MEDS ORDERED: ALBUTEROL SO4 0.083% IH SOL 2.5 MG/3 ML VIAL.NEB. NEB ONE (14:16)
[2024-04-16] MEDS ORDERED: VANCOMYCIN IV SCH (14:45)
[2024-04-16] MEDS ORDERED: SODIUM CHLORIDE 250 ML IV PRN (15:07)
[2024-04-16] MEDS: EPOETIN ALFA-EPBX 4,000 UNIT/ML VIAL SQ ONE (16:56)
[2024-04-16] MEDS ORDERED: INSULIN ASPART SLIDING SCALE (NOVOLOG) 1 VIAL SQ ONE (18:45)
[2024-04-16] MEDS: INSULIN ASPART SLIDING SCALE (NOVOLOG) 1 VIAL SQ SCH (18:54)
[2024-04-16] MEDS: VANCOMYCIN 1 GM/200 ML PREMIX BAG (RESTRICTED TO ID ONLY) IVPB ONE (18:54)
[2024-04-16] MEDS: PANTOPRAZOLE 40 MG TABLET PO SCH (22:03)
[2024-04-16] MEDS: ATORVASTATIN CA 80 MG TABLET (FP) PO SCH (22:03)
[2024-04-16] MEDS: HEPARIN NA (PORCINE) 5,000 UNITS/ML 1ML VIAL SQ SCH (22:04)
[2024-04-16] MEDS: LABETALOL HCL 100 MG TABLET (FP) PO SCH (22:04)
[2024-04-17 01:23] VITALS: BMI 25.0
[2024-04-17] MEDS ORDERED: oxyCODONE HCL 5 MG TABLET PO PRN (01:30)
[2024-04-17] MEDS ORDERED: ACETAMINOPHEN 325 MG TABLET (FP) PO PRN (01:33)
[2024-04-17] MEDS: oxyCODONE HCL 5 MG TABLET PO ONE ×2 (01:46→21:08)
[2024-04-17 08:00] LABS: BASO % 1.3 % (0-2.0); EOS % 7.3 % (0-4.5); HEMOGLOBIN 9.2 GM/dL (11.7-16.9); LYMPH % 20.8 % (8-40); MCH 29.3 pg (25.7-33.7); MCHC 31.8 g/dl (32.0-35.9); MEAN CELL VOLUME 92.3 fl (80-96); MEAN PLT VOLUME 7.2 fl (7.5-11.1); MONO % 10.7 % (3.8-10.2); NEUT % 59.9 % (42.8-82.8); PLATELET COUNT 289 10^3/uL (134-434); RBC 3.15 M/mm3 (4.00-5.60); RDW 18.7 % (11.9-15.9); WHITE BLOOD COUNT 8.1 K/mm3 (4.0-10.0)
[2024-04-17 08:10] LABS: POTASSIUM 4.3 mmol/L (3.5-5.1)
[2024-04-17 08:20] LABS: ALBUMIN 2.3 g/dl (3.4-5.0); CALCIUM 7.9 mg/dL (8.5-10.1)
[2024-04-17 08:21] LABS: BLOOD UREA NITROGEN 35.1 mg/dL (7-18)
[2024-04-17 08:23] LABS: CREATININE 6.3 mg/dL (0.55-1.3); MAGNESIUM 1.7 mg/dL (1.8-2.4); PHOSPHOROUS 4.5 mg/dL (2.5-4.9)
[2024-04-17 08:24] LABS: BILIRUBIN,TOTAL 0.5 mg/dL (0.2-1); TOT PROT 6.6 g/dl (6.4-8.2)
[2024-04-17] MEDS ORDERED: ERTAPENEM SODIUM 1 GM VIAL IVPB SCH (10:00)
[2024-04-17] MEDS: CLOPIDOGREL BISULFATE 75 MG TABLET (FP) PO SCH (10:06)
[2024-04-17] MEDS: TAMSULOSIN HCL 0.4 MG CAP PO SCH (10:07)
[2024-04-17] MEDS: LISINOPRIL 20 MG TABLET PO SCH (10:07)
[2024-04-17] MEDS: NIFEdipine E.R 60 MG TABLET PO SCH (10:07)
[2024-04-17] MEDS: ERTAPENEM SODIUM 0.5 GM in SODIUM CHLORIDE 50 ML IVPB SCH (10:08)
[2024-04-18 08:22] LABS: HEMATOCRIT 28.1 % (35.4-49); HEMOGLOBIN 9.1 GM/dL (11.7-16.9); MCH 29.4 pg (25.7-33.7); MCHC 32.3 g/dl (32.0-35.9); MEAN CELL VOLUME 91.1 fl (80-96); MEAN PLT VOLUME 7.2 fl (7.5-11.1); PLATELET COUNT 265 10^3/uL (134-434); RBC 3.08 M/mm3 (4.00-5.60); RDW 18.3 % (11.9-15.9); WHITE BLOOD COUNT 7.5 K/mm3 (4.0-10.0)
[2024-04-18 08:51] LABS: CHLORIDE 104 mmol/L (98-107); POTASSIUM 4.6 mmol/L (3.5-5.1); SODIUM 140 mmol/L (136-145)
[2024-04-18 08:53] LABS: CALCIUM 7.5 mg/dL (8.5-10.1)
[2024-04-18 08:54] LABS: ANION GAP 11 mmol/L (4-13); BLOOD UREA NITROGEN 37.8 mg/dL (7-18); CO2 25 mmol/L (21-32); GLUCOSE,RANDOM 122 mg/dL (74-106)
[2024-04-18 09:00] LABS: CREATININE 8.1 mg/dL (0.55-1.3)
[2024-04-18] MEDS ORDERED: SODIUM CHLORIDE 250 ML IV PRN (11:44)
[2024-04-18] MEDS: oxyCODONE HCL 5 MG TABLET PO ONE ×2 (11:48→23:23)
[2024-04-18] MEDS: BENZOCAINE/MENTH/CETYLPYRD CL 1 EACH LOZENGE MM PRN (23:23)
[2024-04-18] MEDS: ACETAMINOPHEN 1000 MG/100 ML BAG IVPB ONE (23:24)
[2024-04-19 02:06] VITALS: TEMP 98.2
[2024-04-19] MEDS ORDERED: NIFEdipine E.R. 30 MG TABLET PO ONE (10:51)
[2024-04-19] MEDS: BENZONATATE 200 MG CAPSULE PO ONE (14:21)
[2024-04-19] MEDS: NIFEdipine E.R. 90 MG TABLET PO SCH (14:22)
[2024-04-19 14:28] VITALS: RESP 20
[2024-04-19] MEDS: VANCOMYCIN/WATER FOR INJ (PEG) 1,000 MG/200 ML BAG IVPB SCH (16:59)
[2024-04-19] MEDS: oxyCODONE HCL 5 MG TABLET PO ONE (17:00)
[2024-04-20 00:11] VITALS: BP 170/66; PULSE 87
== END 2024-04-19 23:00 | disposition home health service (06) | DRG 291 ==
LOC: JER 10:17 → JERBED 12:53 → J4W 18:40 → OBSVTOIN 04-19 17:28
PROVIDERS: ADMIT Internal Medicine; ATTEND Internal Medicine
PROC: 5A1D70Z Performance of Urinary Filtration, Intermittent, Less than 6 Hours Per Day (ICD-10-PCS; principal; 2024-04-16)
DX: I13.0 Hypertensive heart and chronic kidney disease with heart failure and stage 1 through stage 4 chronic kidney disease, or unspecified chronic kidney disease (principal); N18.6 End stage renal disease; M86.8X7 Other osteomyelitis, ankle and foot; Z99.2 Dependence on renal dialysis; I25.10 Atherosclerotic heart disease of native coronary artery without angina pectoris; E11.22 Type 2 diabetes mellitus with diabetic chronic kidney disease; E87.5 Hyperkalemia; I50.9 Heart failure, unspecified; E11.69 Type 2 diabetes mellitus with other specified complication; Z79.4 Long term (current) use of insulin; D64.9 Anemia, unspecified; N40.0 Benign prostatic hyperplasia without lower urinary tract symptoms
CPT/HCPCS: 36415; 70450-TC; 70486-TC; 71045-TC-FY; 72125-TC; 80048; 80053; 82550; 82553; 82962; 83036; 83735; 84100; 84484; 85025; 85027; 85610; 86803; 86850; 86900; 86901; 87389; 93005; 93010; 99285-25; G0378; G0480; J1644; Q5106

== ENCOUNTER 2024-04-25 19:01 | Inpatient (IN) | payer OTHER ==
[2024-04-25] MEDS ORDERED: LISINOPRIL 20 MG TABLET ONE (19:48)
[2024-04-25] MEDS ORDERED: NIFEdipine E.R. 30 MG TABLET PO ONE (19:48)
[2024-04-25] MEDS: NIFEdipine 10 MG CAPSULE (FP) PO ONE (19:57)
[2024-04-25] MEDS: LISINOPRIL 20 MG TABLET PO ONE (19:57)
[2024-04-25 21:40] LABS: BASO % 1.2 % (0-2.0); HEMATOCRIT 33.1 % (35.4-49); HEMOGLOBIN 10.5 GM/dL (11.7-16.9); LYMPH % 16.5 % (8-40); MCH 28.5 pg (25.7-33.7); MCHC 31.7 g/dl (32.0-35.9); MEAN PLT VOLUME 7.1 fl (7.5-11.1); MONO % 11.6 % (3.8-10.2); NEUT % 64.7 % (42.8-82.8); PLATELET COUNT 325 10^3/uL (134-434); RBC 3.68 M/mm3 (4.00-5.60); RDW 18.2 % (11.9-15.9); WHITE BLOOD COUNT 8.5 K/mm3 (4.0-10.0)
[2024-04-25 22:08] LABS: CHLORIDE 109 mmol/L (98-107); POTASSIUM 5.6 mmol/L (3.5-5.1); SODIUM 142 mmol/L (136-145)
[2024-04-25 22:10] LABS: CALCIUM 7.9 mg/dL (8.5-10.1)
[2024-04-25 22:11] LABS: ALBUMIN 2.5 g/dl (3.4-5.0); ANION GAP 9 mmol/L (4-13); CO2 24 mmol/L (21-32); GLUCOSE,RANDOM 239 mg/dL (74-106); MAGNESIUM 1.7 mg/dL (1.8-2.4)
[2024-04-25 22:14] LABS: PHOSPHOROUS 6.8 mg/dL (2.5-4.9); SGOT/AST 32 U/L (15-37); SGPT/ALT 34 U/L (13-61)
[2024-04-25 22:15] LABS: BILIRUBIN,TOTAL 0.4 mg/dL (0.2-1)
[2024-04-25 22:16] LABS: TOT PROT 7.3 g/dl (6.4-8.2)
[2024-04-25 22:17] LABS: ALK PHOS 138 U/L (45-117)
[2024-04-25 22:22] LABS: BLOOD UREA NITROGEN 72.6 mg/dL (7-18); CREATININE 9.3 mg/dL (0.55-1.3)
[2024-04-25] MEDS ORDERED: SODIUM ZIRCONIUM CYCLOSILICATE (LOKELMA) 10 GM PACKET ONE (22:42)
[2024-04-25] MEDS: SODIUM ZIRCONIUM CYCLOSILICATE (LOKELMA) 5 GM PACKET PO ONE (22:53)
[2024-04-25] MEDS ORDERED: ACETAMINOPHEN 325 MG TABLET (FP) ONE (22:59)
[2024-04-25] MEDS: ACETAMINOPHEN 1000 MG/100 ML BAG IVPB ONE (22:59)
[2024-04-25] MEDS: ACETAMINOPHEN 500 MG TABLET (FP) PO ONE (23:01)
[2024-04-26] MEDS ORDERED: SODIUM ZIRCONIUM CYCLOSILICATE (LOKELMA) 10 GM PACKET ONE (02:49)
[2024-04-26] MEDS ORDERED: MAGNESIUM 1GM/D5W - 1 GM/100 ML IVPB IVPB ONE (02:50)
[2024-04-26] MEDS ORDERED: INSULIN ASPART SLIDING SCALE (NOVOLOG) 1 VIAL SQ ONE (02:50)
[2024-04-26] MEDS: INSULIN ASPART SLIDING SCALE (NOVOLOG) 1 VIAL SQ SCH (03:22)
[2024-04-26] MEDS: SODIUM ZIRCONIUM CYCLOSILICATE (LOKELMA) 5 GM PACKET PO ONE (03:43)
[2024-04-26] MEDS: ACETAMINOPHEN 1000 MG/100 ML BAG IVPB ONE (03:44)
[2024-04-26] MEDS: MAGNESIUM SULF 50% (8.12 MEQ/2 ML-1 GM VIAL) IVPB ONE (03:44)
[2024-04-26] MEDS: oxyCODONE HCL 5 MG TABLET PO ONE (05:05)
[2024-04-26] MEDS: HEPARIN NA (PORCINE) 5,000 UNITS/ML 1ML VIAL SQ SCH (06:21)
[2024-04-26 06:57] LABS: BASO % 0.9 % (0-2.0); EOS % 7.1 % (0-4.5); HEMATOCRIT 29.2 % (35.4-49); HEMOGLOBIN 9.4 GM/dL (11.7-16.9); LYMPH % 21.4 % (8-40); MCH 29.1 pg (25.7-33.7); MCHC 32.1 g/dl (32.0-35.9); MEAN CELL VOLUME 90.7 fl (80-96); MEAN PLT VOLUME 7.6 fl (7.5-11.1); MONO % 10.6 % (3.8-10.2); PLATELET COUNT 303 10^3/uL (134-434); RBC 3.22 M/mm3 (4.00-5.60); RDW 17.7 % (11.9-15.9); WHITE BLOOD COUNT 8.6 K/mm3 (4.0-10.0)
[2024-04-26 07:04] LABS: CHLORIDE 107 mmol/L (98-107); POTASSIUM 4.8 mmol/L (3.5-5.1); SODIUM 139 mmol/L (136-145)
[2024-04-26 07:12] LABS: ALBUMIN 2.3 g/dl (3.4-5.0); ANION GAP 10 mmol/L (4-13); BLOOD UREA NITROGEN 74.7 mg/dL (7-18); CALCIUM 7.5 mg/dL (8.5-10.1); CO2 22 mmol/L (21-32); GLUCOSE,RANDOM 175 mg/dL (74-106); MAGNESIUM 1.9 mg/dL (1.8-2.4)
[2024-04-26 07:15] LABS: PHOSPHOROUS 6.7 mg/dL (2.5-4.9); SGOT/AST 27 U/L (15-37); SGPT/ALT 30 U/L (13-61)
[2024-04-26 07:17] LABS: BILIRUBIN,TOTAL 0.4 mg/dL (0.2-1); TOT PROT 6.6 g/dl (6.4-8.2)
[2024-04-26 07:18] LABS: ALK PHOS 123 U/L (45-117)
[2024-04-26 07:20] LABS: IRON SERUM 34 ug/dL (50-175)
[2024-04-26 07:21] LABS: TOTAL IRON BINDING CAPACITY 149 ug/dL (250-450)
[2024-04-26 07:25] LABS: CREATININE 9.5 mg/dL (0.55-1.3)
[2024-04-26] MEDS ORDERED: SODIUM ZIRCONIUM CYCLOSILICATE (LOKELMA) 5 GM PACKET PO SCH (10:00)
[2024-04-26] MEDS ORDERED: LABETALOL HCL 100 MG TABLET (FP) ONE ×3 (10:15→22:30)
[2024-04-26] MEDS ORDERED: PANTOPRAZOLE 40 MG TABLET PO ONE ×2 (10:15→22:30)
[2024-04-26] MEDS ORDERED: LISINOPRIL 20 MG TABLET ONE (10:15)
[2024-04-26] MEDS ORDERED: LABETALOL HCL 200 MG TABLET (FP) ONE ×2 (10:16→22:30)
[2024-04-26] MEDS ORDERED: CLOPIDOGREL BISULFATE 75 MG TABLET (FP) ONE (10:16)
[2024-04-26] MEDS ORDERED: TAMSULOSIN HCL 0.4 MG CAP ONE (10:16)
[2024-04-26] MEDS: PANTOPRAZOLE 40 MG TABLET PO SCH (10:18)
[2024-04-26] MEDS: TAMSULOSIN HCL 0.4 MG CAP PO SCH (10:19)
[2024-04-26] MEDS: NIFEdipine E.R. 90 MG TABLET PO SCH (10:19)
[2024-04-26] MEDS: CLOPIDOGREL BISULFATE 75 MG TABLET (FP) PO SCH (10:19)
[2024-04-26] MEDS: LISINOPRIL 20 MG TABLET PO SCH (10:19)
[2024-04-26] MEDS: LABETALOL HCL 100 MG TABLET (FP) PO SCH (10:22)
[2024-04-26] MEDS ORDERED: HEPARIN NA (PORCINE) 5,000 UNITS/ML 1ML VIAL ONE ×2 (14:06→22:31)
[2024-04-26] MEDS ORDERED: SODIUM CHLORIDE 250 ML IV PRN (14:53)
[2024-04-26] MEDS ORDERED: ATORVASTATIN CA 80 MG TABLET (FP) ONE (22:31)
[2024-04-26] MEDS: ATORVASTATIN CA 80 MG TABLET (FP) PO SCH (22:47)
[2024-04-27] MEDS: oxyCODONE HCL 5 MG TABLET PO ONE ×2 (03:05→22:47)
[2024-04-27] MEDS ORDERED: HEPARIN NA (PORCINE) 5,000 UNITS/ML 1ML VIAL ONE (05:53)
[2024-04-27] MEDS: INSULIN ASPART SLIDING SCALE (NOVOLOG) 1 VIAL SQ SCH (08:37)
[2024-04-27] MEDS ORDERED: TAMSULOSIN HCL 0.4 MG CAP ONE (08:43)
[2024-04-27] MEDS: TAMSULOSIN HCL 0.4 MG CAP PO SCH (08:59)
[2024-04-27] MEDS: EPOETIN ALFA-EPBX 10,000 UNIT/ML VIAL SQ ONE (10:29)
[2024-04-27 10:55] LABS: BASO % 1.1 % (0-2.0); EOS % 6.9 % (0-4.5); HEMATOCRIT 28.8 % (35.4-49); HEMOGLOBIN 9.1 GM/dL (11.7-16.9); LYMPH % 22.1 % (8-40); MCH 28.8 pg (25.7-33.7); MCHC 31.7 g/dl (32.0-35.9); MEAN CELL VOLUME 90.9 fl (80-96); MEAN PLT VOLUME 7.4 fl (7.5-11.1); MONO % 10.8 % (3.8-10.2); NEUT % 59.1 % (42.8-82.8); PLATELET COUNT 336 10^3/uL (134-434); RBC 3.17 M/mm3 (4.00-5.60); RDW 18.2 % (11.9-15.9); WHITE BLOOD COUNT 8.5 K/mm3 (4.0-10.0)
[2024-04-27 11:21] LABS: CHLORIDE 106 mmol/L (98-107); POTASSIUM 5.1 mmol/L (3.5-5.1); SODIUM 139 mmol/L (136-145)
[2024-04-27 11:28] LABS: CALCIUM 7.7 mg/dL (8.5-10.1)
[2024-04-27 11:29] LABS: ALBUMIN 2.5 g/dl (3.4-5.0); ANION GAP 14 mmol/L (4-13); BLOOD UREA NITROGEN 84.8 mg/dL (7-18); CO2 19 mmol/L (21-32); GLUCOSE,RANDOM 172 mg/dL (74-106)
[2024-04-27 11:32] LABS: SGOT/AST 31 U/L (15-37); SGPT/ALT 33 U/L (13-61)
[2024-04-27 11:33] LABS: BILIRUBIN,TOTAL 0.5 mg/dL (0.2-1); TOT PROT 6.9 g/dl (6.4-8.2)
[2024-04-27 11:35] LABS: ALK PHOS 120 U/L (45-117); CREATININE 11.3 mg/dL (0.55-1.3)
[2024-04-27 18:00] VITALS: BMI 22.8
[2024-04-27] MEDS: traMADol HCL 50 MG TABLET PO ONE (22:32)
[2024-04-27] MEDS: ACETAMINOPHEN 1000 MG/100 ML BAG IVPB ONE (22:34)
[2024-04-28] MEDS: ACETAMINOPHEN 1000 MG/100 ML BAG IVPB PRN (10:17)
[2024-04-28] MEDS ORDERED: SODIUM CHLORIDE 250 ML IV PRN (10:22)
[2024-04-28] MEDS: traMADol HCL 50 MG TABLET PO PRN (19:16)
[2024-04-28] MEDS: guaiFENesin 200 MG/10 ML 10 ML UNIT-DOSE CUPS PO PRN (23:19)
[2024-04-29] MEDS: EPOETIN ALFA-EPBX 10,000 UNIT/ML VIAL SQ ONE (09:54)
[2024-04-29 16:00] VITALS: BP 108/55; PULSE 72; RESP 16; TEMP 98.9
== END 2024-04-29 15:46 | disposition home or self-care (01) | DRG 640 ==
LOC: JER 19:01 → JERBED 22:55 → J4S 04-27 13:45
PROVIDERS: ADMIT Internal Medicine; ATTEND Internal Medicine
PROC: 5A1D70Z Performance of Urinary Filtration, Intermittent, Less than 6 Hours Per Day (ICD-10-PCS; principal; 2024-04-26)
DX: E87.5 Hyperkalemia (principal); N18.6 End stage renal disease; I13.2 Hypertensive heart and chronic kidney disease with heart failure and with stage 5 chronic kidney disease, or end stage renal disease; I50.32 Chronic diastolic (congestive) heart failure; N25.81 Secondary hyperparathyroidism of renal origin; I24.89 Other forms of acute ischemic heart disease; M86.672 Other chronic osteomyelitis, left ankle and foot; I25.10 Atherosclerotic heart disease of native coronary artery without angina pectoris; N40.0 Benign prostatic hyperplasia without lower urinary tract symptoms; L97.529 Non-pressure chronic ulcer of other part of left foot with unspecified severity; E11.22 Type 2 diabetes mellitus with diabetic chronic kidney disease; Z99.2 Dependence on renal dialysis; D63.1 Anemia in chronic kidney disease; E11.51 Type 2 diabetes mellitus with diabetic peripheral angiopathy without gangrene; E11.69 Type 2 diabetes mellitus with other specified complication; E11.621 Type 2 diabetes mellitus with foot ulcer
CPT/HCPCS: 36415; 36569; 70450-TC; 70551-TC; 71045-TC-FY; 73030-TC-RT-FY; 80053; 82728; 82962; 83540; 83550; 83735; 84100; 84484; 85025; 87340; 93005; 93010; 97116-GP; 97161-GP; 99285-25; J0131; J1644; Q5106

== ENCOUNTER 2024-05-13 19:22 | Inpatient (IN) | payer OTHER ==
[2024-05-13] MEDS ORDERED: ACETAMINOPHEN INJECTION 100 ML ONE (20:19)
[2024-05-13] MEDS: ACETAMINOPHEN 1000 MG/100 ML BAG IVPB ONE (22:18)
[2024-05-13] MEDS ORDERED: FAMOTIDINE 20 MG/50 ML IVPB 20 MG/50 ML MG IVPB ONE (22:20)
[2024-05-13] MEDS: FAMOTIDINE 20 MG/50 ML IVPB 20 MG/50 ML MG IVPB ONE (22:24)
[2024-05-13 22:31] LABS: BASO % 0.4 % (0-2.0); EOS % 2.5 % (0-4.5); HEMATOCRIT 36.8 % (35.4-49); LYMPH % 11.5 % (8-40); MCHC 32.7 g/dl (32.0-35.9); MEAN CELL VOLUME 88.8 fl (80-96); MEAN PLT VOLUME 6.9 fl (7.5-11.1); MONO % 6.9 % (3.8-10.2); NEUT % 78.7 % (42.8-82.8); PLATELET COUNT 339 10^3/uL (134-434); RBC 4.15 M/mm3 (4.00-5.60); RDW 19.1 % (11.9-15.9); WHITE BLOOD COUNT 9.9 K/mm3 (4.0-10.0)
[2024-05-13 22:44] LABS: POTASSIUM 3.7 mmol/L (3.5-5.1)
[2024-05-13 22:45] LABS: ALBUMIN 3.4 g/dl (3.4-5.0); BLOOD UREA NITROGEN 27.5 mg/dL (7-18); CALCIUM 8.7 mg/dL (8.5-10.1); MAGNESIUM 1.7 mg/dL (1.8-2.4)
[2024-05-13 22:48] LABS: CREATININE 5.3 mg/dL (0.55-1.3)
[2024-05-13 22:49] LABS: PHOSPHOROUS 3.6 mg/dL (2.5-4.9)
[2024-05-13 22:50] LABS: BILIRUBIN,TOTAL 0.6 mg/dL (0.2-1); TOT PROT 8.6 g/dl (6.4-8.2)
[2024-05-13 22:50] LABS: INR 1.13 (0.83-1.09); PROTHROMBIN TIME (PATIENT) 12.7 SEC (9.7-13.0)
[2024-05-13] MEDS ORDERED: CEFTRIAXONE 1 GM/50 ML BAG ONE (23:30)
[2024-05-13] MEDS ORDERED: AZITHROMYCIN IVPB 500 MG/250 ML BAG IVPB ONE (23:30)
[2024-05-13] MEDS: AZITHROMYCIN IVPB 500 MG in DEXTROSE 5%-WATER - 250 ML IVPB ONE (23:50)
[2024-05-13] MEDS: CEFTRIAXONE 1,000 MG in DEXTROSE 5%-WATER - 50 ML IVPB ONE (23:50)
[2024-05-14 02:09] VITALS: BMI 24.3
[2024-05-14] MEDS: HEPARIN NA (PORCINE) 5,000 UNITS/ML 1ML VIAL SQ SCH (02:13)
[2024-05-14] MEDS: LIDOCAINE 5% TOPICAL PATCH TP SCH (02:13)
[2024-05-14] MEDS: INSULIN ASPART SLIDING SCALE (NOVOLOG) 1 VIAL SQ SCH (06:17)
[2024-05-14 06:48] LABS: HEMATOCRIT 36.1 % (35.4-49); HEMOGLOBIN 11.7 GM/dL (11.7-16.9); MCH 29.1 pg (25.7-33.7); MCHC 32.3 g/dl (32.0-35.9); MEAN CELL VOLUME 90.2 fl (80-96); MEAN PLT VOLUME 7.2 fl (7.5-11.1); PLATELET COUNT 310 10^3/uL (134-434); RBC 4.01 M/mm3 (4.00-5.60); RDW 18.7 % (11.9-15.9); WHITE BLOOD COUNT 8.6 K/mm3 (4.0-10.0)
[2024-05-14 07:26] LABS: BILIRUBIN,TOTAL 0.5 mg/dL (0.2-1); BLOOD UREA NITROGEN 31.9 mg/dL (7-18); CALCIUM 7.7 mg/dL (8.5-10.1); MAGNESIUM 1.4 mg/dL (1.8-2.4); PHOSPHOROUS 4.4 mg/dL (2.5-4.9); POTASSIUM 3.7 mmol/L (3.5-5.1); TOT PROT 7.6 g/dl (6.4-8.2)
[2024-05-14] MEDS: ACETAMINOPHEN 1000 MG/100 ML BAG IVPB PRN (10:03)
[2024-05-14] MEDS: traMADol HCL 50 MG TABLET PO SCH (10:49)
[2024-05-14] MEDS: LISINOPRIL 20 MG TABLET PO SCH (15:00)
[2024-05-14] MEDS: COLLAGENASE CLOSTRIDIUM HIST. 30 GRAMS TUBE TP SCH (17:04)
[2024-05-14] MEDS: LIDOCAINE PATCH REMOVAL MC SCH (21:43)
[2024-05-15] MEDS ORDERED: SODIUM CHLORIDE 250 ML IV PRN (07:57)
[2024-05-15] MEDS: CLOPIDOGREL BISULFATE 75 MG TABLET (FP) PO SCH (16:23)
[2024-05-15] MEDS: TAMSULOSIN HCL 0.4 MG CAP PO SCH (16:23)
[2024-05-15] MEDS: NIFEdipine E.R. 90 MG TABLET PO SCH (17:07)
[2024-05-15] MEDS: LABETALOL HCL 200 MG TABLET (FP) PO SCH (21:46)
[2024-05-15] MEDS: ATORVASTATIN CA 80 MG TABLET (FP) PO SCH (21:47)
[2024-05-16 08:10] LABS: BASO % 0.8 % (0-2.0); EOS % 9.1 % (0-4.5); HEMATOCRIT 35.5 % (35.4-49); HEMOGLOBIN 11.2 GM/dL (11.7-16.9); LYMPH % 21.3 % (8-40); MCH 28.7 pg (25.7-33.7); MCHC 31.5 g/dl (32.0-35.9); MEAN CELL VOLUME 91.2 fl (80-96); MEAN PLT VOLUME 7.3 fl (7.5-11.1); MONO % 9.1 % (3.8-10.2); NEUT % 59.7 % (42.8-82.8); PLATELET COUNT 283 10^3/uL (134-434); RBC 3.89 M/mm3 (4.00-5.60); RDW 18.2 % (11.9-15.9); WHITE BLOOD COUNT 7.6 K/mm3 (4.0-10.0)
[2024-05-16 08:25] LABS: POTASSIUM 4.3 mmol/L (3.5-5.1)
[2024-05-16 08:32] LABS: ALBUMIN 2.8 g/dl (3.4-5.0); BLOOD UREA NITROGEN 43.4 mg/dL (7-18); CALCIUM 8.3 mg/dL (8.5-10.1); MAGNESIUM 1.6 mg/dL (1.8-2.4)
[2024-05-16 08:36] LABS: CREATININE 6.5 mg/dL (0.55-1.3)
[2024-05-16 08:37] LABS: BILIRUBIN,TOTAL 0.4 mg/dL (0.2-1); TOT PROT 7.2 g/dl (6.4-8.2)
[2024-05-16] MEDS: MAGNESIUM OXIDE 400 MG TABLET (FP) PO ONE (10:09)
[2024-05-16] MEDS: LABETALOL HCL 100 MG TABLET (FP) PO SCH (10:09)
[2024-05-16] MEDS ORDERED: ACETAMINOPHEN 1000 MG/100 ML BAG IVPB ONE (13:45)
[2024-05-16] MEDS: traMADol HCL 50 MG TABLET PO ONE (15:33)
[2024-05-16] MEDS: guaiFENesin 200 MG/10 ML 10 ML UNIT-DOSE CUPS PO PRN (15:33)
[2024-05-16] MEDS: BENZOCAINE/MENTH/CETYLPYRD CL 1 EACH LOZENGE MM PRN (16:30)
[2024-05-17] MEDS: SODIUM CHLORIDE 500 ML IV STA (15:07)
[2024-05-17 15:43] VITALS: PULSE 75; TEMP 97.7
[2024-05-17 22:22] VITALS: BP 125/61; RESP 16
== END 2024-05-17 22:47 | disposition home or self-care (01) | DRG 312 ==
LOC: JER 19:22 → JERBED 23:38 → J4S 05-14 01:47 → OBSVTOIN 05-16 10:38
PROVIDERS: ADMIT Internal Medicine; ATTEND Internal Medicine
DX: I95.1 Orthostatic hypotension (principal); N18.6 End stage renal disease; I13.2 Hypertensive heart and chronic kidney disease with heart failure and with stage 5 chronic kidney disease, or end stage renal disease; I50.32 Chronic diastolic (congestive) heart failure; M86.9 Osteomyelitis, unspecified; E11.69 Type 2 diabetes mellitus with other specified complication; E11.22 Type 2 diabetes mellitus with diabetic chronic kidney disease; Z99.2 Dependence on renal dialysis; D64.9 Anemia, unspecified; E78.5 Hyperlipidemia, unspecified; I25.10 Atherosclerotic heart disease of native coronary artery without angina pectoris; N40.0 Benign prostatic hyperplasia without lower urinary tract symptoms; M48.00 Spinal stenosis, site unspecified; M54.2 Cervicalgia; I44.0 Atrioventricular block, first degree
CPT/HCPCS: 36415; 70450-TC; 71045-TC-FY; 72125-TC; 73630-TC-LT; 80053; 82962; 83735; 84100; 84484; 85025; 85027; 85610; 85651; 85730; 86140; 93005; 93010; 93306-TC; 99285-25; G0378; J0131; J1644

== ENCOUNTER 2024-05-19 18:24 | Observation (INO) | payer OTHER ==
[2024-05-19 19:08] VITALS: BMI 22.6
[2024-05-19] MEDS ORDERED: ONDANSETRON 4 MG/2 ML VIAL ONE (20:28)
[2024-05-19] MEDS ORDERED: ACETAMINOPHEN INJECTION 100 ML ONE (20:28)
[2024-05-19] MEDS ORDERED: MAG HYDROX/AL HYDROX/SIMETH 30 ML UNIT-DOSE CUP ONE (20:28)
[2024-05-19] MEDS ORDERED: FAMOTIDINE 20 MG/50 ML IVPB 20 MG/50 ML MG IVPB ONE (20:29)
[2024-05-19] MEDS: MAG HYDROX/AL HYDROX/SIMETH 30 ML UNIT-DOSE CUP PO ONE (21:15)
[2024-05-19 22:09] LABS: BASO % 0.7 % (0-2.0); EOS % 6.1 % (0-4.5); HEMATOCRIT 34.2 % (35.4-49); HEMOGLOBIN 10.8 GM/dL (11.7-16.9); LYMPH % 13.3 % (8-40); MCH 28.7 pg (25.7-33.7); MCHC 31.7 g/dl (32.0-35.9); MEAN CELL VOLUME 90.4 fl (80-96); MEAN PLT VOLUME 7.5 fl (7.5-11.1); MONO % 6.4 % (3.8-10.2); NEUT % 73.5 % (42.8-82.8); PLATELET COUNT 313 10^3/uL (134-434); RBC 3.78 M/mm3 (4.00-5.60); RDW 17.6 % (11.9-15.9); WHITE BLOOD COUNT 10.8 K/mm3 (4.0-10.0)
[2024-05-19 22:15] LABS: INR 1.11 (0.83-1.09); PROTHROMBIN TIME (PATIENT) 12.5 SEC (9.7-13.0)
[2024-05-19] MEDS: ONDANSETRON 4 MG/2 ML VIAL IVPUSH ONE (22:15)
[2024-05-19] MEDS: FAMOTIDINE 20 MG/50 ML IVPB 20 MG/50 ML MG IVPB ONE (22:15)
[2024-05-19 22:18] LABS: ACTIVATED PTT 31.6 SECONDS (25.2-36.5)
[2024-05-19] MEDS: ACETAMINOPHEN 1000 MG/100 ML BAG IVPB ONE (22:25)
[2024-05-19 22:26] LABS: CHLORIDE 94 mmol/L (98-107); POTASSIUM 4.9 mmol/L (3.5-5.1); SODIUM 137 mmol/L (136-145)
[2024-05-19 22:28] LABS: CALCIUM 8.1 mg/dL (8.5-10.1)
[2024-05-19 22:29] LABS: ANION GAP 10 mmol/L (4-13); CO2 32 mmol/L (21-32); GLUCOSE,RANDOM 228 mg/dL (74-106); MAGNESIUM 1.8 mg/dL (1.8-2.4)
[2024-05-19 22:32] LABS: PHOSPHOROUS 5.3 mg/dL (2.5-4.9); SGOT/AST 16 U/L (15-37); SGPT/ALT 23 U/L (13-61)
[2024-05-19 22:33] LABS: BILIRUBIN,TOTAL 0.5 mg/dL (0.2-1); TOT PROT 7.4 g/dl (6.4-8.2)
[2024-05-19 22:35] LABS: ALK PHOS 119 U/L (45-117)
[2024-05-19 22:41] LABS: ALBUMIN 2.9 g/dl (3.4-5.0); BLOOD UREA NITROGEN 89.9 mg/dL (7-18)
[2024-05-20] MEDS ORDERED: HEPARIN NA (PORCINE) 5,000 UNITS/ML 1ML VIAL ONE (06:24)
[2024-05-20] MEDS: HEPARIN NA (PORCINE) 5,000 UNITS/ML 1ML VIAL SQ SCH (06:34)
[2024-05-20] MEDS: INSULIN ASPART SLIDING SCALE (NOVOLOG) 1 VIAL SQ SCH (07:30)
[2024-05-20] MEDS: CLOPIDOGREL BISULFATE 75 MG TABLET (FP) PO SCH (09:15)
[2024-05-20] MEDS: NIFEdipine E.R. 90 MG TABLET PO SCH (09:15)
[2024-05-20] MEDS: LISINOPRIL 20 MG TABLET PO SCH (09:15)
[2024-05-20] MEDS: PANTOPRAZOLE 40 MG TABLET PO SCH ×2 (09:15→21:36)
[2024-05-20] MEDS: FAMOTIDINE 10 MG TABLET PO SCH (09:15)
[2024-05-20] MEDS ORDERED: SODIUM CHLORIDE 250 ML IV PRN (10:45)
[2024-05-20] MEDS: HEPARIN NA (PORCINE) 5,000 UNITS/ML 1ML VIAL IVPUSH ONE (10:45)
[2024-05-20 10:54] LABS: HEMATOCRIT 32.1 % (35.4-49); HEMOGLOBIN 10.5 GM/dL (11.7-16.9); MCHC 32.7 g/dl (32.0-35.9); MEAN CELL VOLUME 88.6 fl (80-96); MEAN PLT VOLUME 7.4 fl (7.5-11.1); PLATELET COUNT 293 10^3/uL (134-434); RBC 3.62 M/mm3 (4.00-5.60); RDW 17.8 % (11.9-15.9); WHITE BLOOD COUNT 9.3 K/mm3 (4.0-10.0)
[2024-05-20 11:14] LABS: CHLORIDE 97 mmol/L (98-107); POTASSIUM 4.6 mmol/L (3.5-5.1); SODIUM 136 mmol/L (136-145)
[2024-05-20 11:22] LABS: ANION GAP 11 mmol/L (4-13); CALCIUM 8.2 mg/dL (8.5-10.1); CO2 28 mmol/L (21-32); GLUCOSE,RANDOM 178 mg/dL (74-106)
[2024-05-20 11:25] LABS: PHOSPHOROUS 4.3 mg/dL (2.5-4.9); SGOT/AST 17 U/L (15-37); SGPT/ALT 23 U/L (13-61)
[2024-05-20 11:26] LABS: BILIRUBIN,TOTAL 0.6 mg/dL (0.2-1); CREATININE 9.5 mg/dL (0.55-1.3); TOT PROT 7.3 g/dl (6.4-8.2)
[2024-05-20 11:27] LABS: ALK PHOS 114 U/L (45-117)
[2024-05-20] MEDS ORDERED: ONDANSETRON 4 MG/2 ML VIAL IVPUSH PRN (21:06)
[2024-05-20] MEDS: ATORVASTATIN CA 80 MG TABLET (FP) PO SCH (21:32)
[2024-05-21 02:44] VITALS: RESP 20
[2024-05-21] MEDS: BENZOCAINE/MENTH/CETYLPYRD CL 1 EACH LOZENGE MM PRN (03:55)
[2024-05-21 09:24] VITALS: BP 163/79; PULSE 88; TEMP 98.4
[2024-05-21] MEDS ORDERED: PANTOPRAZOLE 40 MG TABLET PO SCH (10:00)
[2024-05-21 10:12] LABS: HEMATOCRIT 35.7 % (35.4-49); HEMOGLOBIN 11.4 GM/dL (11.7-16.9); MCH 29.1 pg (25.7-33.7); MCHC 31.8 g/dl (32.0-35.9); MEAN CELL VOLUME 91.5 fl (80-96); MEAN PLT VOLUME 7.6 fl (7.5-11.1); PLATELET COUNT 315 10^3/uL (134-434); RDW 17.7 % (11.9-15.9); WHITE BLOOD COUNT 7.7 K/mm3 (4.0-10.0)
[2024-05-21 10:29] LABS: CHLORIDE 96 mmol/L (98-107); POTASSIUM 4.5 mmol/L (3.5-5.1); SODIUM 138 mmol/L (136-145)
[2024-05-21 10:33] LABS: ANION GAP 10 mmol/L (4-13); BLOOD UREA NITROGEN 50.6 mg/dL (7-18); CALCIUM 8.5 mg/dL (8.5-10.1); CO2 32 mmol/L (21-32); GLUCOSE,RANDOM 79 mg/dL (74-106); MAGNESIUM 1.9 mg/dL (1.8-2.4)
[2024-05-21 10:36] LABS: PHOSPHOROUS 4.6 mg/dL (2.5-4.9)
[2024-05-21 10:49] LABS: CREATININE 8.2 mg/dL (0.55-1.3)
== END 2024-05-21 16:20 | disposition home or self-care (01) ==
LOC: JER 18:24 → JERBED 23:37 → J6S 05-20 08:29
PROVIDERS: ADMIT Internal Medicine; ATTEND Internal Medicine
PROC: 3E033NZ Introduction of Analgesics, Hypnotics, Sedatives into Peripheral Vein, Percutaneous Approach (ICD-10-PCS; principal; 2024-05-19)
PROC: 3E033GC Introduction of Other Therapeutic Substance into Peripheral Vein, Percutaneous Approach (ICD-10-PCS; 2024-05-19)
DX: I13.11 Hypertensive heart and chronic kidney disease without heart failure, with stage 5 chronic kidney disease, or end stage renal disease (principal); I25.10 Atherosclerotic heart disease of native coronary artery without angina pectoris; N18.6 End stage renal disease; Z99.2 Dependence on renal dialysis; I16.0 Hypertensive urgency; E11.40 Type 2 diabetes mellitus with diabetic neuropathy, unspecified; Z91.158 Patient's noncompliance with renal dialysis for other reason; E86.0 Dehydration; E11.22 Type 2 diabetes mellitus with diabetic chronic kidney disease; E87.8 Other disorders of electrolyte and fluid balance, not elsewhere classified; R68.89 Other general symptoms and signs; Z86.73 Personal history of transient ischemic attack (TIA), and cerebral infarction without residual deficits; Z89.421 Acquired absence of other right toe(s); Z89.412 Acquired absence of left great toe
CPT/HCPCS: 0241U-QW; 36415; 70450-TC; 71045-TC-FY; 80048; 80053; 82962; 83690; 83735; 84100; 84484; 85025; 85027; 85610; 85730; 93005; 93010; 96365; 96375; 99285-25; G0378; J0131; J1644

== ENCOUNTER 2024-05-26 15:03 | Inpatient (IN) | payer OTHER ==
[2024-05-26] MEDS ORDERED: FAMOTIDINE 20 MG/50 ML IVPB 20 MG/50 ML MG IVPB ONE (16:13)
[2024-05-26] MEDS: FAMOTIDINE 20 MG/50 ML IVPB 20 MG/50 ML MG IVPB ONE (16:49)
[2024-05-26 17:24] LABS: CALCIUM 9.4 mg/dL (8.5-10.1)
[2024-05-26 17:25] LABS: ALBUMIN 3.2 g/dl (3.4-5.0); BLOOD UREA NITROGEN 31.2 mg/dL (7-18)
[2024-05-26 17:28] LABS: CREATININE 6.3 mg/dL (0.55-1.3)
[2024-05-26 17:29] LABS: BILIRUBIN,TOTAL 0.6 mg/dL (0.2-1); TOT PROT 8.7 g/dl (6.4-8.2)
[2024-05-26 17:30] LABS: BASO % 0.7 % (0-2.0); EOS % 0.5 % (0-4.5); HEMATOCRIT 41.3 % (35.4-49); HEMOGLOBIN 12.8 GM/dL (11.7-16.9); LYMPH % 7.1 % (8-40); MCH 28.7 pg (25.7-33.7); MCHC 31.1 g/dl (32.0-35.9); MEAN CELL VOLUME 92.3 fl (80-96); MEAN PLT VOLUME 7.7 fl (7.5-11.1); MONO % 8.7 % (3.8-10.2); PLATELET COUNT 320 10^3/uL (134-434); RBC 4.47 M/mm3 (4.00-5.60); RDW 17.8 % (11.9-15.9); WHITE BLOOD COUNT 10.5 K/mm3 (4.0-10.0)
[2024-05-26 17:33] LABS: N-TERMINAL BNP 15393.2 pg/ml (5-125)
[2024-05-26] MEDS ORDERED: PANTOPRAZOLE SODIUM 40 MG VIAL ONE (18:12)
[2024-05-26 18:28] LABS: INR 1.08 (0.83-1.09); PROTHROMBIN TIME (PATIENT) 12.4 SEC (9.7-13.0)
[2024-05-26 18:31] LABS: ACTIVATED PTT 30.5 SECONDS (25.2-36.5)
[2024-05-26] MEDS: PANTOPRAZOLE SODIUM 40 MG VIAL IVPUSH ONE (18:31)
[2024-05-26 18:45] LABS: POTASSIUM 4.6 mmol/L (3.5-5.1)
[2024-05-26 18:46] LABS: CALCIUM 9.6 mg/dL (8.5-10.1)
[2024-05-26 18:50] LABS: CREATININE 6.4 mg/dL (0.55-1.3)
[2024-05-26] MEDS ORDERED: RAPID SEQUENCE INTUBATION KIT NR ONE (23:23)
[2024-05-27] MEDS ORDERED: HEPARIN NA (PORCINE) 5,000 UNITS/ML 1ML VIAL SQ SCH (06:00)
[2024-05-27] MEDS: INSULIN ASPART SLIDING SCALE (NOVOLOG) 1 VIAL SQ SCH (06:22)
[2024-05-27 08:50] LABS: HEMATOCRIT 36.9 % (35.4-49); HEMOGLOBIN 11.6 GM/dL (11.7-16.9); MCH 28.5 pg (25.7-33.7); MCHC 31.4 g/dl (32.0-35.9); MEAN CELL VOLUME 90.6 fl (80-96); MEAN PLT VOLUME 7.6 fl (7.5-11.1); PLATELET COUNT 329 10^3/uL (134-434); RBC 4.07 M/mm3 (4.00-5.60); WHITE BLOOD COUNT 9.5 K/mm3 (4.0-10.0)
[2024-05-27 09:11] LABS: CHLORIDE 95 mmol/L (98-107); POTASSIUM 4.8 mmol/L (3.5-5.1); SODIUM 135 mmol/L (136-145)
[2024-05-27 09:16] LABS: ANION GAP 11 mmol/L (4-13); BLOOD UREA NITROGEN 38.5 mg/dL (7-18); CALCIUM 8.9 mg/dL (8.5-10.1); CO2 29 mmol/L (21-32); GLUCOSE,RANDOM 144 mg/dL (74-106)
[2024-05-27 09:17] LABS: SGOT/AST 19 U/L (15-37)
[2024-05-27 09:19] LABS: SGPT/ALT 22 U/L (13-61)
[2024-05-27 09:20] LABS: CREATININE 7.6 mg/dL (0.55-1.3); PHOSPHOROUS 5.4 mg/dL (2.5-4.9)
[2024-05-27 09:21] LABS: BILIRUBIN,TOTAL 0.6 mg/dL (0.2-1); TOT PROT 7.7 g/dl (6.4-8.2)
[2024-05-27 09:22] LABS: ALK PHOS 108 U/L (45-117)
[2024-05-27] MEDS: LABETALOL HCL 100 MG TABLET (FP) PO SCH (11:07)
[2024-05-27] MEDS: PANTOPRAZOLE 40 MG TABLET PO SCH (11:07)
[2024-05-27] MEDS: LISINOPRIL 20 MG TABLET PO SCH (11:08)
[2024-05-27] MEDS: TAMSULOSIN HCL 0.4 MG CAP PO SCH (11:08)
[2024-05-27] MEDS: CLOPIDOGREL BISULFATE 75 MG TABLET (FP) PO SCH (11:08)
[2024-05-27] MEDS: FAMOTIDINE 20 MG TABLET PO SCH (11:08)
[2024-05-27] MEDS: NIFEdipine E.R. 90 MG TABLET PO SCH (11:09)
[2024-05-27] MEDS ORDERED: SODIUM CHLORIDE 250 ML IV PRN (11:34)
[2024-05-27] MEDS: ATORVASTATIN CA 80 MG TABLET (FP) PO SCH (21:48)
[2024-05-27] MEDS: ACETAMINOPHEN 325 MG TABLET (FP) PO ONE (22:30)
[2024-05-28] MEDS: HEPARIN NA (PORCINE) 5,000 UNITS/ML 1ML VIAL SQ SCH (09:59)
[2024-05-28] MEDS: PANTOPRAZOLE 40 MG TABLET PO SCH (10:02)
[2024-05-28] MEDS: oxyCODONE HCL 5 MG TABLET PO ONE ×2 (10:16→20:25)
[2024-05-28 13:08] VITALS: BMI 22.5
[2024-05-28] MEDS ORDERED: SODIUM CHLORIDE 250 ML IV PRN (16:14)
[2024-05-28] MEDS: ACETAMINOPHEN 500 MG TABLET (FP) PO ONE (20:28)
[2024-05-29] MEDS: MELATONIN 5 MG TABLETS PO ONE (21:58)
[2024-05-29] MEDS: ACETAMINOPHEN 500 MG TABLET (FP) PO ONE (21:58)
[2024-05-29] MEDS: BENZOCAINE/MENTH/CETYLPYRD CL 1 EACH LOZENGE MM PRN (22:19)
[2024-05-30] MEDS: oxyCODONE HCL 5 MG TABLET PO ONE (00:17)
[2024-05-30] MEDS: ACETAMINOPHEN 500 MG TABLET (FP) PO ONE (00:17)
[2024-05-30 08:12] VITALS: RESP 18
[2024-05-30 09:40] LABS: EOS % 9.5 % (0-4.5); HEMATOCRIT 33.3 % (35.4-49); HEMOGLOBIN 10.4 GM/dL (11.7-16.9); LYMPH % 25.9 % (8-40); MCH 28.4 pg (25.7-33.7); MCHC 31.2 g/dl (32.0-35.9); MEAN CELL VOLUME 91.2 fl (80-96); MEAN PLT VOLUME 7.1 fl (7.5-11.1); MONO % 10.3 % (3.8-10.2); NEUT % 53.3 % (42.8-82.8); PLATELET COUNT 285 10^3/uL (134-434); RBC 3.65 M/mm3 (4.00-5.60); WHITE BLOOD COUNT 6.4 K/mm3 (4.0-10.0)
[2024-05-30 09:59] LABS: POTASSIUM 3.6 mmol/L (3.5-5.1)
[2024-05-30 10:01] LABS: ALBUMIN 2.8 g/dl (3.4-5.0); CALCIUM 8.6 mg/dL (8.5-10.1)
[2024-05-30 10:02] LABS: BLOOD UREA NITROGEN 26.3 mg/dL (7-18); MAGNESIUM 1.7 mg/dL (1.8-2.4)
[2024-05-30 10:06] LABS: BILIRUBIN,TOTAL 0.5 mg/dL (0.2-1); TOT PROT 7.2 g/dl (6.4-8.2)
[2024-05-30 10:29] VITALS: BP 147/65; PULSE 88; TEMP 95
== END 2024-05-30 14:42 | disposition home or self-care (01) | DRG 73 ==
LOC: JER 15:03 → JERBED 21:43 → INTOOBSV 21:43 → J7W 05-27 01:22 → OBSVTOIN 05-27 09:18
PROVIDERS: ADMIT Internal Medicine; ATTEND Nurse Practitioner Family
PROC: 5A1D70Z Performance of Urinary Filtration, Intermittent, Less than 6 Hours Per Day (ICD-10-PCS; principal; 2024-05-29)
DX: E11.43 Type 2 diabetes mellitus with diabetic autonomic (poly)neuropathy (principal); N18.6 End stage renal disease; I13.0 Hypertensive heart and chronic kidney disease with heart failure and stage 1 through stage 4 chronic kidney disease, or unspecified chronic kidney disease; I50.32 Chronic diastolic (congestive) heart failure; K31.84 Gastroparesis; I25.10 Atherosclerotic heart disease of native coronary artery without angina pectoris; N40.0 Benign prostatic hyperplasia without lower urinary tract symptoms; Z99.2 Dependence on renal dialysis; K20.90 Esophagitis, unspecified without bleeding; E87.70 Fluid overload, unspecified; E11.21 Type 2 diabetes mellitus with diabetic nephropathy; E11.22 Type 2 diabetes mellitus with diabetic chronic kidney disease; K21.9 Gastro-esophageal reflux disease without esophagitis
CPT/HCPCS: 36415; 70450-TC; 71045-TC-FY; 74176-TC; 80048; 80053; 82272; 82962; 83036; 83605; 83690; 83735; 83880; 84100; 84484; 85025; 85027; 85610; 85730; 87040; 87340; 93005; 93010; 99285-25; G0378; J1644

== ENCOUNTER 2024-06-28 12:51 | Inpatient (IN) | payer OTHER ==
[2024-06-28] MEDS: SODIUM CHLORIDE 0.9% 500 ML INFUS.BAG IV ONE (14:06)
[2024-06-28 14:07] LABS: VENOUS BASE EXCESS -0.6 mmol/L (-2-2); VENOUS O2 SATURATION 26.2 % (70-80); VENOUS PCO2 54.6 mmHg (38-52); VENOUS PH 7.306 (7.310-7.410)
[2024-06-28 14:26] LABS: BASO % 1.1 % (0-2.0); HEMATOCRIT 39.6 % (35.4-49); HEMOGLOBIN 12.7 GM/dL (11.7-16.9); LYMPH % 20.6 % (8-40); MCH 28.9 pg (25.7-33.7); MEAN CELL VOLUME 90.1 fl (80-96); MEAN PLT VOLUME 8.2 fl (7.5-11.1); NEUT % 64.3 % (42.8-82.8); PLATELET COUNT 303 10^3/uL (134-434); RBC 4.39 M/mm3 (4.00-5.60); WHITE BLOOD COUNT 6.4 K/mm3 (4.0-10.0)
[2024-06-28 14:29] LABS: CHLORIDE 100 mmol/L (98-107); POTASSIUM 5.4 mmol/L (3.5-5.1); SODIUM 136 mmol/L (136-145)
[2024-06-28 14:31] LABS: CALCIUM 9.6 mg/dL (8.5-10.1); GLUCOSE,RANDOM 189 mg/dL (74-106)
[2024-06-28 14:32] LABS: ALBUMIN 3.5 g/dl (3.4-5.0); ANION GAP 12 mmol/L (4-13); CO2 24 mmol/L (21-32)
[2024-06-28 14:35] LABS: SGOT/AST 25 U/L (15-37); SGPT/ALT 44 U/L (13-61)
[2024-06-28 14:36] LABS: BILIRUBIN,TOTAL 0.6 mg/dL (0.2-1); CREATININE 9.5 mg/dL (0.55-1.3)
[2024-06-28 14:37] LABS: ALK PHOS 173 U/L (45-117); MAGNESIUM 1.9 mg/dL (1.8-2.4)
[2024-06-28 14:40] LABS: PHOSPHOROUS 4.8 mg/dL (2.5-4.9)
[2024-06-28] MEDS ORDERED: NIFEdipine E.R. 30 MG TABLET PO ONE (16:36)
[2024-06-28] MEDS: TAMSULOSIN HCL 0.4 MG CAP PO SCH (16:41)
[2024-06-28] MEDS: NIFEdipine E.R. 90 MG TABLET PO SCH (16:41)
[2024-06-28] MEDS ORDERED: SODIUM ZIRCONIUM CYCLOSILICATE (LOKELMA) 10 GM PACKET ONE ×2 (18:16→21:03)
[2024-06-28] MEDS ORDERED: FUROSEMIDE 40 MG/4 ML INJECTABLE VIAL ONE (18:16)
[2024-06-28] MEDS: FUROSEMIDE 40 MG/4 ML INJECTABLE VIAL IVPB ONE (18:37)
[2024-06-28] MEDS: SODIUM ZIRCONIUM CYCLOSILICATE (LOKELMA) 5 GM PACKET PO SCH (18:38)
[2024-06-28] MEDS ORDERED: LABETALOL HCL 100 MG TABLET (FP) ONE (21:02)
[2024-06-28] MEDS ORDERED: LABETALOL HCL 200 MG TABLET (FP) ONE (21:03)
[2024-06-28] MEDS ORDERED: ATORVASTATIN CA 80 MG TABLET (FP) ONE (21:03)
[2024-06-28] MEDS ORDERED: HEPARIN NA (PORCINE) 5,000 UNITS/ML 1ML VIAL ONE (21:03)
[2024-06-28] MEDS: LABETALOL HCL 100 MG, LABETALOL HCL 200 MG PO SCH (21:22)
[2024-06-28] MEDS: HEPARIN NA (PORCINE) 5,000 UNITS/ML 1ML VIAL SQ SCH (21:22)
[2024-06-28] MEDS: ATORVASTATIN CA 80 MG TABLET (FP) PO SCH (21:22)
[2024-06-29 02:26] VITALS: BMI 24.6
[2024-06-29] MEDS: TAMSULOSIN HCL 0.4 MG CAP PO SCH (08:13)
[2024-06-29] MEDS ORDERED: SODIUM CHLORIDE 250 ML IV PRN (09:45)
[2024-06-29 09:46] LABS: HEMATOCRIT 31.5 % (35.4-49); HEMOGLOBIN 9.7 GM/dL (11.7-16.9); MCHC 30.8 g/dl (32.0-35.9); MEAN CELL VOLUME 90.9 fl (80-96); MEAN PLT VOLUME 7.4 fl (7.5-11.1); PLATELET COUNT 205 10^3/uL (134-434); RBC 3.46 M/mm3 (4.00-5.60); RDW 17.2 % (11.9-15.9); WHITE BLOOD COUNT 5.4 K/mm3 (4.0-10.0)
[2024-06-29 10:20] LABS: CHLORIDE 103 mmol/L (98-107); POTASSIUM 5.1 mmol/L (3.5-5.1); SODIUM 137 mmol/L (136-145)
[2024-06-29 10:22] LABS: ANION GAP 14 mmol/L (4-13); BLOOD UREA NITROGEN 62.6 mg/dL (7-18); CALCIUM 8.2 mg/dL (8.5-10.1); CO2 20 mmol/L (21-32); MAGNESIUM 1.8 mg/dL (1.8-2.4)
[2024-06-29 10:23] LABS: GLUCOSE,RANDOM 206 mg/dL (74-106)
[2024-06-29 10:25] LABS: SGPT/ALT 28 U/L (13-61)
[2024-06-29 10:26] LABS: ALBUMIN 2.6 g/dl (3.4-5.0); CREATININE 10.1 mg/dL (0.55-1.3); PHOSPHOROUS 5.4 mg/dL (2.5-4.9); SGOT/AST 17 U/L (15-37)
[2024-06-29 10:27] LABS: BILIRUBIN,TOTAL 0.4 mg/dL (0.2-1)
[2024-06-29 10:29] LABS: ALK PHOS 121 U/L (45-117); TOT PROT 6.6 g/dl (6.4-8.2)
[2024-06-29] MEDS: CLOPIDOGREL BISULFATE 75 MG TABLET (FP) PO SCH (13:52)
[2024-06-29] MEDS: INSULIN ASPART SLIDING SCALE (NOVOLOG) 1 VIAL SQ SCH (16:23)
[2024-06-29] MEDS ORDERED: INSULIN ASPART SLIDING SCALE (NOVOLOG) 1 VIAL SQ SCH (16:30)
[2024-06-29 17:20] VITALS: RESP 18
[2024-06-30 05:49] VITALS: BP 142/71; PULSE 96; TEMP 97.9
== END 2024-06-29 20:00 | disposition home or self-care (01) | DRG 391 ==
LOC: JER 12:51 → JERBED 15:50 → OBSVTOIN 16:27 → J5S 23:40
PROVIDERS: ADMIT Internal Medicine; ATTEND Internal Medicine
PROC: 5A1D70Z Performance of Urinary Filtration, Intermittent, Less than 6 Hours Per Day (ICD-10-PCS; principal; 2024-06-27)
DX: A08.4 Viral intestinal infection, unspecified (principal); N18.6 End stage renal disease; I13.2 Hypertensive heart and chronic kidney disease with heart failure and with stage 5 chronic kidney disease, or end stage renal disease; I50.32 Chronic diastolic (congestive) heart failure; I24.89 Other forms of acute ischemic heart disease; I25.10 Atherosclerotic heart disease of native coronary artery without angina pectoris; K21.9 Gastro-esophageal reflux disease without esophagitis; N40.0 Benign prostatic hyperplasia without lower urinary tract symptoms; K44.9 Diaphragmatic hernia without obstruction or gangrene; E86.0 Dehydration; E11.22 Type 2 diabetes mellitus with diabetic chronic kidney disease; E11.43 Type 2 diabetes mellitus with diabetic autonomic (poly)neuropathy; E78.5 Hyperlipidemia, unspecified; D64.9 Anemia, unspecified; E87.5 Hyperkalemia; R53.1 Weakness; Z99.2 Dependence on renal dialysis; Z89.422 Acquired absence of other left toe(s); Z89.421 Acquired absence of other right toe(s)
CPT/HCPCS: 0241U-QW; 36415; 71045-TC-FY; 80053; 82803; 82962; 83605; 83690; 83735; 84100; 84484; 85025; 85027; 86704; 86803; 87340; 87517; 93005; 93010; 97116-GP; 97161-GP; 99285-25; G0378; J1644

== ENCOUNTER 2024-07-13 10:33 | Inpatient (IN) | payer OTHER ==
[2024-07-13 10:42] VITALS: BMI 22.6
[2024-07-13] MEDS ORDERED: ONDANSETRON 4 MG/2 ML VIAL ONE (11:45)
[2024-07-13] MEDS: ONDANSETRON 4 MG/2 ML VIAL IVPUSH ONE (11:50)
[2024-07-13 12:03] LABS: INR 1.09 (0.83-1.09); PROTHROMBIN TIME (PATIENT) 12.5 SEC (9.7-13.0)
[2024-07-13 12:06] LABS: ACTIVATED PTT 33.9 SECONDS (25.2-36.5)
[2024-07-13 12:07] LABS: EOS % 1.4 % (0-4.5); HEMATOCRIT 43.2 % (35.4-49); HEMOGLOBIN 14.1 GM/dL (11.7-16.9); LYMPH % 13.5 % (8-40); MCH 28.7 pg (25.7-33.7); MCHC 32.6 g/dl (32.0-35.9); MEAN CELL VOLUME 88.3 fl (80-96); MEAN PLT VOLUME 7.9 fl (7.5-11.1); MONO % 5.6 % (3.8-10.2); NEUT % 78.5 % (42.8-82.8); PLATELET COUNT 300 10^3/uL (134-434); RBC 4.89 M/mm3 (4.00-5.60); RDW 18.8 % (11.9-15.9); WHITE BLOOD COUNT 10.5 K/mm3 (4.0-10.0)
[2024-07-13 12:19] LABS: CHLORIDE 91 mmol/L (98-107); POTASSIUM 5.2 mmol/L (3.5-5.1); SODIUM 134 mmol/L (136-145)
[2024-07-13 12:21] LABS: ALBUMIN 3.3 g/dl (3.4-5.0); CALCIUM 9.1 mg/dL (8.5-10.1)
[2024-07-13 12:22] LABS: ANION GAP 12 mmol/L (4-13); BLOOD UREA NITROGEN 60.7 mg/dL (7-18); CO2 31 mmol/L (21-32); GLUCOSE,RANDOM 287 mg/dL (74-106); MAGNESIUM 2.2 mg/dL (1.8-2.4)
[2024-07-13 12:24] LABS: SGPT/ALT 25 U/L (13-61)
[2024-07-13 12:25] LABS: PHOSPHOROUS 6.4 mg/dL (2.5-4.9); SGOT/AST 17 U/L (15-37)
[2024-07-13 12:26] LABS: BILIRUBIN,TOTAL 0.5 mg/dL (0.2-1); CREATININE 8.1 mg/dL (0.55-1.3); TOT PROT 8.4 g/dl (6.4-8.2)
[2024-07-13 12:28] LABS: ALK PHOS 130 U/L (45-117)
[2024-07-13] MEDS ORDERED: ONDANSETRON 4 MG/2 ML VIAL IVPUSH PRN (14:35)
[2024-07-13] MEDS ORDERED: PANTOPRAZOLE 40 MG TABLET PO ONE (16:00)
[2024-07-13] MEDS ORDERED: SODIUM ZIRCONIUM CYCLOSILICATE (LOKELMA) 10 GM PACKET ONE (16:00)
[2024-07-13] MEDS ORDERED: guaiFENesin/D-METHORPHAN HB 10 ML UNIT-DOSE CUPS ONE ×2 (16:00→22:31)
[2024-07-13] MEDS ORDERED: BENZOCAINE/MENTH/CETYLPYRD CL 1 EACH LOZENGE MM ONE ×2 (16:01→22:32)
[2024-07-13] MEDS: BENZOCAINE/MENTH/CETYLPYRD CL 1 EACH LOZENGE MM PRN (16:06)
[2024-07-13] MEDS: guaiFENesin/D-METHORPHAN HB 10 ML UNIT-DOSE CUPS PO PRN (16:06)
[2024-07-13] MEDS: SODIUM ZIRCONIUM CYCLOSILICATE (LOKELMA) 5 GM PACKET PO ONE (16:06)
[2024-07-13] MEDS: PANTOPRAZOLE 40 MG TABLET PO SCH (16:07)
[2024-07-13] MEDS ORDERED: SODIUM CHLORIDE 250 ML IV PRN (17:37)
[2024-07-13] MEDS: INSULIN ASPART SLIDING SCALE (NOVOLOG) 1 VIAL SQ SCH (17:47)
[2024-07-13] MEDS: SEVELAMER CARBONATE 0.8 GM POWDER PACKET PO ONE (18:44)
[2024-07-13] MEDS ORDERED: LABETALOL HCL 100 MG TABLET (FP) ONE (22:30)
[2024-07-13] MEDS ORDERED: LABETALOL HCL 200 MG TABLET (FP) ONE (22:30)
[2024-07-13] MEDS ORDERED: ATORVASTATIN CA 80 MG TABLET (FP) ONE (22:31)
[2024-07-13] MEDS ORDERED: HEPARIN NA (PORCINE) 5,000 UNITS/ML 1ML VIAL ONE (22:32)
[2024-07-13] MEDS: ATORVASTATIN CA 80 MG TABLET (FP) PO SCH (22:40)
[2024-07-13] MEDS: HEPARIN NA (PORCINE) 5,000 UNITS/ML 1ML VIAL SQ SCH (22:40)
[2024-07-13] MEDS: LABETALOL HCL 100 MG TABLET (FP) PO SCH (22:40)
[2024-07-14] MEDS ORDERED: HEPARIN NA (PORCINE) 5,000 UNITS/ML 1ML VIAL ONE (06:04)
[2024-07-14] MEDS: TAMSULOSIN HCL 0.4 MG CAP PO SCH (09:00)
[2024-07-14] MEDS: NIFEdipine E.R. 90 MG TABLET PO SCH (10:00)
[2024-07-14] MEDS: CLOPIDOGREL BISULFATE 75 MG TABLET (FP) PO SCH (10:00)
[2024-07-14 12:15] LABS: HEMOGLOBIN 11.9 GM/dL (11.7-16.9); MCH 28.4 pg (25.7-33.7); MEAN CELL VOLUME 88.8 fl (80-96); MEAN PLT VOLUME 7.3 fl (7.5-11.1); PLATELET COUNT 234 10^3/uL (134-434); RBC 4.17 M/mm3 (4.00-5.60); RDW 18.4 % (11.9-15.9); WHITE BLOOD COUNT 6.1 K/mm3 (4.0-10.0)
[2024-07-14 12:16] LABS: BASO % 1.1 % (0-2.0); EOS % 1.8 % (0-4.5); HEMATOCRIT 36.8 % (35.4-49); HEMOGLOBIN 11.9 GM/dL (11.7-16.9); LYMPH % 25.7 % (8-40); MCH 28.6 pg (25.7-33.7); MCHC 32.3 g/dl (32.0-35.9); MEAN CELL VOLUME 88.7 fl (80-96); MEAN PLT VOLUME 7.4 fl (7.5-11.1); NEUT % 64.4 % (42.8-82.8); PLATELET COUNT 239 10^3/uL (134-434); RBC 4.15 M/mm3 (4.00-5.60)
[2024-07-14 12:39] LABS: CHLORIDE 91 mmol/L (98-107); POTASSIUM 5.3 mmol/L (3.5-5.1); SODIUM 132 mmol/L (136-145)
[2024-07-14 13:01] LABS: CALCIUM 8.3 mg/dL (8.5-10.1)
[2024-07-14 13:02] LABS: ALBUMIN 2.9 g/dl (3.4-5.0); ANION GAP 14 mmol/L (4-13); BLOOD UREA NITROGEN 76.2 mg/dL (7-18); CO2 27 mmol/L (21-32); GLUCOSE,RANDOM 205 mg/dL (74-106)
[2024-07-14 13:05] LABS: SGOT/AST 14 U/L (15-37); SGPT/ALT 24 U/L (13-61)
[2024-07-14 13:06] LABS: BILIRUBIN,TOTAL 1.1 mg/dL (0.2-1); TOT PROT 7.2 g/dl (6.4-8.2)
[2024-07-14 13:07] LABS: CREATININE 9.1 mg/dL (0.55-1.3)
[2024-07-14 13:08] LABS: ALK PHOS 107 U/L (45-117)
[2024-07-14] MEDS ORDERED: SODIUM ZIRCONIUM CYCLOSILICATE (LOKELMA) 10 GM PACKET ONE (13:24)
[2024-07-14] MEDS: SODIUM ZIRCONIUM CYCLOSILICATE (LOKELMA) 5 GM PACKET PO SCH (13:36)
[2024-07-14] MEDS: LOPERAMIDE HCL 2 MG CAPSULE PO PRN (17:17)
[2024-07-14 18:01] VITALS: RESP 18
[2024-07-15 09:03] LABS: BASO % 1.1 % (0-2.0); EOS % 3.7 % (0-4.5); HEMATOCRIT 36.6 % (35.4-49); HEMOGLOBIN 11.9 GM/dL (11.7-16.9); LYMPH % 29.6 % (8-40); MCHC 32.5 g/dl (32.0-35.9); MEAN CELL VOLUME 89.2 fl (80-96); MEAN PLT VOLUME 7.3 fl (7.5-11.1); MONO % 10.9 % (3.8-10.2); NEUT % 54.7 % (42.8-82.8); PLATELET COUNT 232 10^3/uL (134-434); RDW 17.8 % (11.9-15.9); WHITE BLOOD COUNT 6.2 K/mm3 (4.0-10.0)
[2024-07-15 09:17] LABS: POTASSIUM 3.8 mmol/L (3.5-5.1)
[2024-07-15 09:20] LABS: CALCIUM 8.2 mg/dL (8.5-10.1)
[2024-07-15 09:21] LABS: ALBUMIN 2.8 g/dl (3.4-5.0)
[2024-07-15 09:24] LABS: CREATININE 6.4 mg/dL (0.55-1.3)
[2024-07-15 09:25] LABS: BILIRUBIN,TOTAL 0.8 mg/dL (0.2-1); TOT PROT 7.2 g/dl (6.4-8.2)
[2024-07-15 11:18] VITALS: BP 144/90; PULSE 102; TEMP 98.4
[2024-07-15 12:40] LABS: BLOOD UREA NITROGEN 40.4 mg/dL (7-18)
== END 2024-07-15 15:53 | disposition home or self-care (01) | DRG 73 ==
LOC: JER 10:33 → JERBED 12:37 → INTOOBSV 12:37 → UNDOADMOB 12:37 → JERBED 14:14 → OBSVTOIN 07-14 14:22 → J5S 07-14 14:49
PROVIDERS: ADMIT Internal Medicine; ATTEND Internal Medicine
PROC: 5A1D70Z Performance of Urinary Filtration, Intermittent, Less than 6 Hours Per Day (ICD-10-PCS; principal; 2024-07-13)
DX: E11.43 Type 2 diabetes mellitus with diabetic autonomic (poly)neuropathy (principal); N18.6 End stage renal disease; I13.2 Hypertensive heart and chronic kidney disease with heart failure and with stage 5 chronic kidney disease, or end stage renal disease; I50.32 Chronic diastolic (congestive) heart failure; I25.10 Atherosclerotic heart disease of native coronary artery without angina pectoris; E87.5 Hyperkalemia; N40.0 Benign prostatic hyperplasia without lower urinary tract symptoms; K31.84 Gastroparesis; E83.39 Other disorders of phosphorus metabolism; D64.9 Anemia, unspecified; Z99.2 Dependence on renal dialysis; E11.22 Type 2 diabetes mellitus with diabetic chronic kidney disease; E11.65 Type 2 diabetes mellitus with hyperglycemia
CPT/HCPCS: 0241U-QW; 36415; 71045-TC-FY; 80053; 82962; 83690; 83735; 84100; 84484; 85025; 85027; 85610; 85730; 86850; 86900; 86901; 93005; 93010; 99285-25; G0378; J1644

== ENCOUNTER 2024-08-26 21:34 | Inpatient (IN) | payer OTHER ==
[2024-08-26 21:57] VITALS: BMI 23.2
[2024-08-26 23:49] LABS: VENOUS BASE EXCESS -0.1 mmol/L (-2-2); VENOUS O2 SATURATION 35.4 % (70-80); VENOUS PCO2 46.7 mmHg (38-52); VENOUS PH 7.361 (7.310-7.410)
[2024-08-26 23:50] LABS: BASO % 0.7 % (0-2.0); EOS % 0.2 % (0-4.5); HEMATOCRIT 44.6 % (35.4-49); HEMOGLOBIN 14.5 GM/dL (11.7-16.9); LYMPH % 11.6 % (8-40); MCH 28.3 pg (25.7-33.7); MCHC 32.5 g/dl (32.0-35.9); MEAN CELL VOLUME 87.2 fl (80-96); MEAN PLT VOLUME 7.8 fl (7.5-11.1); MONO % 9.6 % (3.8-10.2); NEUT % 77.9 % (42.8-82.8); PLATELET COUNT 235 10^3/uL (134-434); RBC 5.11 M/mm3 (4.00-5.60); RDW 18.7 % (11.9-15.9); WHITE BLOOD COUNT 5.9 K/mm3 (4.0-10.0)
[2024-08-27 00:10] LABS: POTASSIUM 4.8 mmol/L (3.5-5.1)
[2024-08-27 00:13] LABS: ALBUMIN 3.4 g/dl (3.4-5.0); BLOOD UREA NITROGEN 44.6 mg/dL (7-18); CALCIUM 8.7 mg/dL (8.5-10.1); MAGNESIUM 2.1 mg/dL (1.8-2.4)
[2024-08-27 00:16] LABS: CREATININE 6.8 mg/dL (0.55-1.3); PHOSPHOROUS 7.5 mg/dL (2.5-4.9)
[2024-08-27 00:18] LABS: BILIRUBIN,TOTAL 0.8 mg/dL (0.2-1); TOT PROT 8.8 g/dl (6.4-8.2)
[2024-08-27] MEDS ORDERED: TRIMETHOBENZAMIDE HCL 200MG/2ML INJ IM ONE (01:12)
[2024-08-27] MEDS: TRIMETHOBENZAMIDE HCL 200MG/2ML INJ IM ONE ×2 (01:15→20:39)
[2024-08-27 02:03] LABS: CALCIUM 8.3 mg/dL (8.5-10.1)
[2024-08-27 02:07] LABS: CREATININE 6.8 mg/dL (0.55-1.3)
[2024-08-27 02:47] LABS: POTASSIUM 4.4 mmol/L (3.5-5.1)
[2024-08-27] MEDS ORDERED: ACETAMINOPHEN INJECTION 100 ML ONE (02:50)
[2024-08-27] MEDS: ACETAMINOPHEN 1000 MG/100 ML BAG IVPB ONE (02:53)
[2024-08-27] MEDS ORDERED: LABETALOL HCL 20 MG/4 ML VIAL ONE (05:19)
[2024-08-27] MEDS ORDERED: HEPARIN NA (PORCINE) 5,000 UNITS/ML 1ML VIAL ONE (05:19)
[2024-08-27] MEDS: HEPARIN NA (PORCINE) 5,000 UNITS/ML 1ML VIAL SQ SCH (05:23)
[2024-08-27] MEDS: LABETALOL HCL 20 MG/4 ML VIAL IVPUSH ONE (05:28)
[2024-08-27] MEDS ORDERED: TRIMETHOBENZAMIDE HCL 200MG/2ML INJ IM PRN (06:06)
[2024-08-27] MEDS ORDERED: HYDROmorphone HCL CARPU-JECT 2 MG/1 ML DISP.SYRIN ONE (06:14)
[2024-08-27] MEDS: HYDROmorphone HCL CARPU-JECT 2 MG/1 ML DISP.SYRIN IVPUSH PRN (06:18)
[2024-08-27 06:23] LABS: BASO % 0.7 % (0-2.0); EOS % 0.2 % (0-4.5); HEMATOCRIT 41.6 % (35.4-49); HEMOGLOBIN 13.3 GM/dL (11.7-16.9); LYMPH % 15.1 % (8-40); MCH 28.2 pg (25.7-33.7); MCHC 31.9 g/dl (32.0-35.9); MEAN CELL VOLUME 88.5 fl (80-96); MEAN PLT VOLUME 7.8 fl (7.5-11.1); MONO % 12.3 % (3.8-10.2); NEUT % 71.7 % (42.8-82.8); PLATELET COUNT 254 10^3/uL (134-434); RBC 4.71 M/mm3 (4.00-5.60); RDW 18.8 % (11.9-15.9); WHITE BLOOD COUNT 6.8 K/mm3 (4.0-10.0)
[2024-08-27 06:43] LABS: POTASSIUM 4.3 mmol/L (3.5-5.1)
[2024-08-27 06:45] LABS: ALBUMIN 3.2 g/dl (3.4-5.0); BLOOD UREA NITROGEN 50.6 mg/dL (7-18); CALCIUM 8.4 mg/dL (8.5-10.1)
[2024-08-27 06:48] LABS: PHOSPHOROUS 8.1 mg/dL (2.5-4.9)
[2024-08-27 06:50] LABS: BILIRUBIN,TOTAL 0.7 mg/dL (0.2-1); TOT PROT 8.2 g/dl (6.4-8.2)
[2024-08-27] MEDS: INSULIN ASPART SLIDING SCALE (NOVOLOG) 1 VIAL SQ SCH (07:45)
[2024-08-27] MEDS ORDERED: INSULIN ASPART SLIDING SCALE (NOVOLOG) 1 VIAL SQ ONE (08:38)
[2024-08-27] MEDS ORDERED: CLOPIDOGREL BISULFATE 75 MG TABLET (FP) ONE (09:39)
[2024-08-27] MEDS ORDERED: LABETALOL HCL 100 MG TABLET (FP) ONE (09:39)
[2024-08-27] MEDS ORDERED: LABETALOL HCL 200 MG TABLET (FP) ONE (09:39)
[2024-08-27] MEDS: NIFEdipine E.R. 90 MG TABLET PO SCH (09:43)
[2024-08-27] MEDS: LABETALOL HCL 200 MG, LABETALOL HCL 100 MG PO SCH (09:43)
[2024-08-27] MEDS: CLOPIDOGREL BISULFATE 75 MG TABLET (FP) PO SCH (09:43)
[2024-08-27] MEDS ORDERED: LORazepam 2 MG/ML SDV VIAL IVPUSH PRN (11:05)
[2024-08-27] MEDS: INSULIN (LEVEMIR) 100 UNITS/ML UNITS SQ SCH ×2 (11:26→23:02)
[2024-08-27] MEDS ORDERED: SODIUM CHLORIDE 250 ML IV PRN ×2 (11:31→16:23)
[2024-08-27] MEDS: HEPARIN NA (PORCINE) 5,000 UNITS/ML 1ML VIAL IVPUSH ONE (13:40)
[2024-08-27] MEDS: ATORVASTATIN CA 80 MG TABLET (FP) PO SCH (22:58)
[2024-08-28] MEDS: ACETAMINOPHEN 1000 MG/100 ML BAG IVPB PRN (01:41)
[2024-08-28 08:05] LABS: HEMATOCRIT 40.7 % (35.4-49); HEMOGLOBIN 13.2 GM/dL (11.7-16.9); MCH 28.5 pg (25.7-33.7); MCHC 32.5 g/dl (32.0-35.9); MEAN CELL VOLUME 87.8 fl (80-96); MEAN PLT VOLUME 8.3 fl (7.5-11.1); PLATELET COUNT 299 10^3/uL (134-434); RBC 4.64 M/mm3 (4.00-5.60); RDW 18.5 % (11.9-15.9); WHITE BLOOD COUNT 10.3 K/mm3 (4.0-10.0)
[2024-08-28 08:27] LABS: POTASSIUM 4.4 mmol/L (3.5-5.1)
[2024-08-28 08:30] LABS: BLOOD UREA NITROGEN 50.3 mg/dL (7-18); CALCIUM 8.5 mg/dL (8.5-10.1); MAGNESIUM 2.1 mg/dL (1.8-2.4)
[2024-08-28 08:33] LABS: CREATININE 6.2 mg/dL (0.55-1.3)
[2024-08-28 08:34] LABS: PHOSPHOROUS 6.5 mg/dL (2.5-4.9)
[2024-08-29] MEDS: ACETAMINOPHEN 325 MG TABLET (FP) PO ONE (02:25)
[2024-08-29 11:37] LABS: BASO % 0.6 % (0-2.0); EOS % 1.4 % (0-4.5); HEMATOCRIT 37.4 % (35.4-49); LYMPH % 12.7 % (8-40); MCH 28.1 pg (25.7-33.7); MEAN CELL VOLUME 87.8 fl (80-96); MEAN PLT VOLUME 7.6 fl (7.5-11.1); MONO % 8.9 % (3.8-10.2); NEUT % 76.4 % (42.8-82.8); PLATELET COUNT 278 10^3/uL (134-434); RBC 4.26 M/mm3 (4.00-5.60); RDW 18.5 % (11.9-15.9); WHITE BLOOD COUNT 9.2 K/mm3 (4.0-10.0)
[2024-08-29] MEDS ORDERED: HEPARIN NA (PORCINE) 5,000 UNITS/ML 1ML VIAL IVPUSH PRN ×2 (11:55)
[2024-08-29 12:08] LABS: POTASSIUM 3.1 mmol/L (3.5-5.1)
[2024-08-29 12:10] LABS: CALCIUM 8.5 mg/dL (8.5-10.1)
[2024-08-29 12:11] LABS: ALBUMIN 3.1 g/dl (3.4-5.0); BLOOD UREA NITROGEN 33.3 mg/dL (7-18)
[2024-08-29 12:14] LABS: CREATININE 5.1 mg/dL (0.55-1.3)
[2024-08-29] MEDS ORDERED: HEPARIN SOD,PORK IN 0.45% NACL 25,000 UNITS/500 ML INFUS.BAG IVPB SCH (12:15)
[2024-08-29 12:16] LABS: TOT PROT 7.7 g/dl (6.4-8.2)
[2024-08-29 12:43] VITALS: BP 143/88; PULSE 102; RESP 19; TEMP 98.6
[2024-08-29] MEDS ORDERED: POTASSIUM CHLORIDE ORAL LIQUID 20 MEQ/15 ML PO ONE (13:00)
[2024-08-29] MEDS ORDERED: PANTOPRAZOLE 20 MG TABLET PO SCH (13:00)
[2024-08-29] MEDS ORDERED: MAG HYDROX/AL HYDROX/SIMETH 30 ML UNIT-DOSE CUP PO SCH (18:00)
== END 2024-08-29 13:45 | disposition short-term general hospital (02) | DRG 391 ==
LOC: JER 21:34 → JERBED 08-27 00:44 → OBSVTOIN 08-27 00:44 → J4S 08-27 20:00
PROVIDERS: ADMIT Student in an Organized Health Care Education/Training Program; ATTEND Internal Medicine
PROC: 5A1D70Z Performance of Urinary Filtration, Intermittent, Less than 6 Hours Per Day (ICD-10-PCS; principal; 2024-08-27)
DX: K52.9 Noninfective gastroenteritis and colitis, unspecified (principal); N18.6 End stage renal disease; I13.2 Hypertensive heart and chronic kidney disease with heart failure and with stage 5 chronic kidney disease, or end stage renal disease; I24.89 Other forms of acute ischemic heart disease; I25.10 Atherosclerotic heart disease of native coronary artery without angina pectoris; E11.22 Type 2 diabetes mellitus with diabetic chronic kidney disease; E11.51 Type 2 diabetes mellitus with diabetic peripheral angiopathy without gangrene; Z99.2 Dependence on renal dialysis; N40.0 Benign prostatic hyperplasia without lower urinary tract symptoms; E11.621 Type 2 diabetes mellitus with foot ulcer; L97.529 Non-pressure chronic ulcer of other part of left foot with unspecified severity; I16.0 Hypertensive urgency; E87.5 Hyperkalemia; I50.9 Heart failure, unspecified; Z79.4 Long term (current) use of insulin
CPT/HCPCS: 0241U-QW; 36415; 71045-TC-FY; 80048; 80053; 82010; 82803; 82962; 83690; 83735; 84100; 84484; 85025; 85027; 87340; 93005; 93010; 99285-25; J0131; J1644

== ENCOUNTER 2024-10-24 12:24 | Observation (INO) | payer OTHER ==
[2024-10-24 12:32] VITALS: BMI 22.6
[2024-10-24 13:12] LABS: ABSOLUTE IMMATURE GRANULOCYTES 0.02 x10^3/uL (0.0-0.031); BASOPHILS # 0.02 x10^3/uL (0.01-0.08); EOSINOPHIL % 2.1 % (0.8-7.0); EOSINOPHILS # 0.09 x10^3/uL (0.04-0.54); HEMATOCRIT 31.4 % (40.1-51.0); HEMOGLOBIN 9.5 g/dL (13.7-17.5); MCHC 30.3 g/dl (32.3-36.5); MEAN CELL VOLUME 92.9 fl (79.0-92.2); MEAN PLT VOLUME 9.2 fl (9.4-12.4); MONOCYTE % 11.6 % (5.3-12.2); PLATELET COUNT 191 x10^3/uL (163-337); RDW 16.8 % (12.2-16.4)
[2024-10-24 13:20] LABS: INR 1.17 (0.83-1.09); PROTHROMBIN TIME (PATIENT) 12.7 SEC (9.7-13.0)
[2024-10-24 13:22] LABS: ACTIVATED PTT 33.5 SECONDS (25.2-36.5)
[2024-10-24 13:40] LABS: CHLORIDE 94 mmol/L (98-107); POTASSIUM 5.1 mmol/L (3.5-5.1); SODIUM 134 mmol/L (136-145)
[2024-10-24 13:42] LABS: ANION GAP 13 mmol/L (4-13); CALCIUM 8.8 mg/dL (8.5-10.1); CO2 26 mmol/L (21-32)
[2024-10-24 13:43] LABS: BLOOD UREA NITROGEN 58.1 mg/dL (7-18); GLUCOSE,RANDOM 134 mg/dL (74-106); MAGNESIUM 1.8 mg/dL (1.8-2.4)
[2024-10-24 13:45] LABS: SGPT/ALT 28 U/L (13-61)
[2024-10-24 13:46] LABS: PHOSPHOROUS 5.5 mg/dL (2.5-4.9); SGOT/AST 41 U/L (15-37)
[2024-10-24 13:47] LABS: BILIRUBIN,TOTAL 0.9 mg/dL (0.2-1); TOT PROT 7.8 g/dl (6.4-8.2)
[2024-10-24 13:48] LABS: ALK PHOS 91 U/L (45-117)
[2024-10-24 13:51] LABS: CREATININE 8.5 mg/dL (0.55-1.3)
[2024-10-24] MEDS ORDERED: ASPIRIN 81 MG CHEWABLE TABLETS ONE (14:07)
[2024-10-24] MEDS ORDERED: SODIUM ZIRCONIUM CYCLOSILICATE (LOKELMA) 10 GM PACKET ONE (14:07)
[2024-10-24] MEDS ORDERED: NIFEdipine E.R 60 MG TABLET PO ONE (14:12)
[2024-10-24] MEDS ORDERED: NIFEdipine E.R. 30 MG TABLET PO ONE (14:12)
[2024-10-24] MEDS ORDERED: LABETALOL HCL 100 MG TABLET (FP) ONE (14:12)
[2024-10-24] MEDS: SODIUM ZIRCONIUM CYCLOSILICATE (LOKELMA) 5 GM PACKET PO ONE (14:19)
[2024-10-24] MEDS: ASPIRIN 81 MG CHEWABLE TABLETS PO ONE (14:19)
[2024-10-24] MEDS: NIFEdipine E.R. 90 MG TABLET PO ONE (14:34)
[2024-10-24] MEDS: LABETALOL HCL 100 MG TABLET (FP) PO ONE (14:34)
[2024-10-24] MEDS ORDERED: INSULIN ASPART SLIDING SCALE (NOVOLOG) 1 VIAL SQ SCH (16:30)
[2024-10-24] MEDS: INSULIN ASPART SLIDING SCALE (NOVOLOG) 1 VIAL SQ SCH (17:34)
[2024-10-24] MEDS ORDERED: HEPARIN NA (PORCINE) 5,000 UNITS/ML 1ML VIAL ONE (21:35)
[2024-10-24] MEDS ORDERED: ATORVASTATIN CA 80 MG TABLET (FP) ONE (21:35)
[2024-10-24] MEDS: HEPARIN NA (PORCINE) 5,000 UNITS/ML 1ML VIAL SQ SCH (22:04)
[2024-10-24] MEDS: ATORVASTATIN CA 80 MG TABLET (FP) PO SCH (22:04)
[2024-10-24] MEDS: LABETALOL HCL 100 MG TABLET (FP) PO SCH (22:12)
[2024-10-25] MEDS ORDERED: guaiFENesin 200 MG/10 ML 10 ML UNIT-DOSE CUPS ONE (00:42)
[2024-10-25] MEDS: guaiFENesin 200 MG/10 ML 10 ML UNIT-DOSE CUPS PO PRN (00:45)
[2024-10-25] MEDS ORDERED: HEPARIN NA (PORCINE) 5,000 UNITS/ML 1ML VIAL ONE ×3 (05:09→23:25)
[2024-10-25 06:57] LABS: HEMATOCRIT 28.7 % (40.1-51.0); HEMOGLOBIN 8.6 g/dL (13.7-17.5); MEAN CELL VOLUME 92.6 fl (79.0-92.2); MEAN PLT VOLUME 9.2 fl (9.4-12.4); PLATELET COUNT 168 x10^3/uL (163-337); RDW 17.1 % (12.2-16.4)
[2024-10-25 07:19] LABS: CHLORIDE 96 mmol/L (98-107); POTASSIUM 4.6 mmol/L (3.5-5.1); SODIUM 133 mmol/L (136-145)
[2024-10-25 07:23] LABS: ALBUMIN 2.9 g/dl (3.4-5.0); ANION GAP 11 mmol/L (4-13); CO2 26 mmol/L (21-32); GLUCOSE,RANDOM 179 mg/dL (74-106); MAGNESIUM 1.5 mg/dL (1.8-2.4)
[2024-10-25 07:26] LABS: SGOT/AST 28 U/L (15-37); SGPT/ALT 25 U/L (13-61)
[2024-10-25 07:27] LABS: PHOSPHOROUS 5.7 mg/dL (2.5-4.9)
[2024-10-25 07:28] LABS: BILIRUBIN,TOTAL 1.1 mg/dL (0.2-1); TOT PROT 6.9 g/dl (6.4-8.2)
[2024-10-25 07:29] LABS: ALK PHOS 89 U/L (45-117)
[2024-10-25] MEDS ORDERED: INSULIN ASPART SLIDING SCALE (NOVOLOG) 1 VIAL SQ ONE ×2 (07:30→11:17)
[2024-10-25 07:31] LABS: CREATININE 9.6 mg/dL (0.55-1.3)
[2024-10-25] MEDS ORDERED: LABETALOL HCL 100 MG TABLET (FP) ONE ×2 (09:13→23:24)
[2024-10-25] MEDS ORDERED: MAGNESIUM OXIDE 400 MG TABLET (FP) ONE (09:13)
[2024-10-25] MEDS ORDERED: PANTOPRAZOLE 20 MG TABLET PO ONE (09:13)
[2024-10-25] MEDS ORDERED: TAMSULOSIN HCL 0.4 MG CAP ONE (09:13)
[2024-10-25] MEDS ORDERED: MAGNESIUM SULFATE IN WATER 2 GM/50 ML IVPB IVPB ONE (09:14)
[2024-10-25] MEDS: MAGNESIUM 2GM/50ML STERILE WATER IVPB IVPB ONE (09:25)
[2024-10-25] MEDS: NIFEdipine E.R. 90 MG TABLET PO SCH (09:25)
[2024-10-25] MEDS: TAMSULOSIN HCL 0.4 MG CAP PO SCH (09:25)
[2024-10-25] MEDS: PANTOPRAZOLE 20 MG TABLET PO SCH (09:25)
[2024-10-25] MEDS: MAGNESIUM OXIDE 400 MG TABLET (FP) PO ONE (09:25)
[2024-10-25] MEDS: CLOPIDOGREL BISULFATE 75 MG TABLET (FP) PO SCH (09:28)
[2024-10-25] MEDS ORDERED: CLOPIDOGREL BISULFATE 75 MG TABLET (FP) ONE (09:28)
[2024-10-25 16:19] VITALS: RESP 18
[2024-10-25] MEDS ORDERED: SODIUM CHLORIDE 250 ML IV PRN (18:27)
[2024-10-25] MEDS: EPOETIN ALFA-EPBX 10,000 UNIT/ML VIAL IVPUSH ONE (19:58)
[2024-10-25] MEDS: OSELTAMIVIR PHOSPHATE 30 MG CAPSULE PO SCH (19:59)
[2024-10-25 20:16] VITALS: TEMP 98.1
[2024-10-25] MEDS ORDERED: ATORVASTATIN CA 80 MG TABLET (FP) ONE (23:24)
[2024-10-25] MEDS ORDERED: LABETALOL HCL 200 MG TABLET (FP) ONE (23:24)
[2024-10-26 01:08] VITALS: BP 113/53; PULSE 85
[2024-10-27] MEDS ORDERED: OSELTAMIVIR PHOSPHATE 30 MG CAPSULE PO SCH (16:00)
== END 2024-10-26 01:24 | disposition home or self-care (01) ==
LOC: JER 12:24 → JERBED 14:04
PROVIDERS: ADMIT Internal Medicine; ATTEND Internal Medicine
PROC: 3E033GC Introduction of Other Therapeutic Substance into Peripheral Vein, Percutaneous Approach (ICD-10-PCS; principal; 2024-10-24)
PROC: 3E023GC Introduction of Other Therapeutic Substance into Muscle, Percutaneous Approach (ICD-10-PCS; 2024-10-24)
PROC: 3E0337Z Introduction of Electrolytic and Water Balance Substance into Peripheral Vein, Percutaneous Approach (ICD-10-PCS; 2024-10-24)
DX: J10.1 Influenza due to other identified influenza virus with other respiratory manifestations (principal); E87.70 Fluid overload, unspecified; R53.1 Weakness; Z91.158 Patient's noncompliance with renal dialysis for other reason; E11.22 Type 2 diabetes mellitus with diabetic chronic kidney disease; Z95.5 Presence of coronary angioplasty implant and graft; I13.2 Hypertensive heart and chronic kidney disease with heart failure and with stage 5 chronic kidney disease, or end stage renal disease; I11.9 Hypertensive heart disease without heart failure; N18.6 End stage renal disease; Z99.2 Dependence on renal dialysis; D64.9 Anemia, unspecified; F14.21 Cocaine dependence, in remission; Z87.891 Personal history of nicotine dependence; Z86.14 Personal history of Methicillin resistant Staphylococcus aureus infection
CPT/HCPCS: 0241U-QW; 36415; 71045-TC-FY; 80053; 82962; 83735; 84100; 84439; 84443; 84484; 85025; 85027; 85610; 85730; 86850; 86900; 86901; 93005; 93010; 96361; 96372; 96374; 96375; 99285-25; G0378; J1644; Q5106

== ENCOUNTER 2024-11-23 11:02 | Inpatient (IN) | payer OTHER ==
[2024-11-23] MEDS ORDERED: ACETAMINOPHEN 325 MG TABLET (FP) ONE (11:49)
[2024-11-23] MEDS: ACETAMINOPHEN 500 MG TABLET (FP) PO ONE (11:51)
[2024-11-23 12:05] LABS: ABSOLUTE IMMATURE GRANULOCYTES 0.03 x10^3/uL (0.0-0.031); BASOPHILS # 0.04 x10^3/uL (0.01-0.08); EOSINOPHIL % 4.8 % (0.8-7.0); EOSINOPHILS # 0.36 x10^3/uL (0.04-0.54); HEMATOCRIT 34.6 % (40.1-51.0); HEMOGLOBIN 10.7 g/dL (13.7-17.5); MCHC 30.9 g/dl (32.3-36.5); MEAN CELL VOLUME 89.4 fl (79.0-92.2); MEAN PLT VOLUME 9.2 fl (9.4-12.4); MONOCYTE # 0.58 x10^3/uL (0.30-0.82); MONOCYTE % 7.7 % (5.3-12.2); PLATELET COUNT 227 x10^3/uL (163-337); RDW 16.2 % (12.2-16.4)
[2024-11-23 12:44] LABS: CHLORIDE 98 mmol/L (98-107); POTASSIUM 4.9 mmol/L (3.5-5.1); SODIUM 135 mmol/L (136-145)
[2024-11-23 12:45] LABS: ALBUMIN 3.2 g/dl (3.4-5.0); CALCIUM 9.4 mg/dL (8.5-10.1)
[2024-11-23 12:47] LABS: ANION GAP 11 mmol/L (4-13); BLOOD UREA NITROGEN 75.2 mg/dL (7-18); CO2 27 mmol/L (21-32); GLUCOSE,RANDOM 356 mg/dL (74-106)
[2024-11-23 12:49] LABS: CREATININE 8.9 mg/dL (0.55-1.3); SGOT/AST 15 U/L (15-37); SGPT/ALT 26 U/L (13-61)
[2024-11-23 12:51] LABS: BILIRUBIN,TOTAL 0.5 mg/dL (0.2-1); TOT PROT 7.9 g/dl (6.4-8.2)
[2024-11-23 12:52] LABS: ALK PHOS 125 U/L (45-117)
[2024-11-23] MEDS ORDERED: SODIUM CHLORIDE 250 ML IV PRN (14:20)
[2024-11-23] MEDS: EPOETIN ALFA-EPBX 4,000 UNIT/ML VIAL SQ ONE (16:48)
[2024-11-23] MEDS: INSULIN ASPART SLIDING SCALE (NOVOLOG) 1 VIAL SQ SCH (17:48)
[2024-11-23] MEDS: ATORVASTATIN CA 40 MG TABLET (FP) PO SCH (22:13)
[2024-11-23] MEDS: HEPARIN NA (PORCINE) 5,000 UNITS/ML 1ML VIAL SQ SCH (22:13)
[2024-11-23] MEDS: TAMSULOSIN HCL 0.4 MG CAP PO SCH (22:13)
[2024-11-23] MEDS: LABETALOL HCL 100 MG TABLET (FP) PO SCH (22:13)
[2024-11-24] MEDS: MELATONIN 5 MG TABLETS PO ONE (00:36)
[2024-11-24 06:30] VITALS: BMI 20.9
[2024-11-24] MEDS: INSULIN GLARGINE (LANTUS) 100 UNITS/ML UNITS SQ SCH (07:02)
[2024-11-24 08:52] LABS: HEMOGLOBIN 10.3 g/dL (13.7-17.5); MCHC 30.3 g/dl (32.3-36.5); MEAN CELL VOLUME 89.9 fl (79.0-92.2); MEAN PLT VOLUME 9.9 fl (9.4-12.4); PLATELET COUNT 233 x10^3/uL (163-337); RDW 16.4 % (12.2-16.4)
[2024-11-24 09:36] LABS: CALCIUM 8.8 mg/dL (8.5-10.1); POTASSIUM 4.2 mmol/L (3.5-5.1)
[2024-11-24 09:38] LABS: BLOOD UREA NITROGEN 44.8 mg/dL (7-18)
[2024-11-24 09:41] LABS: TOT PROT 7.7 g/dl (6.4-8.2)
[2024-11-24 09:42] LABS: BILIRUBIN,TOTAL 0.4 mg/dL (0.2-1)
[2024-11-24] MEDS: PANTOPRAZOLE 40 MG TABLET PO SCH (10:53)
[2024-11-24] MEDS: CLOPIDOGREL BISULFATE 75 MG TABLET (FP) PO SCH (10:53)
[2024-11-24] MEDS: NIFEdipine E.R. 90 MG TABLET PO SCH (10:54)
[2024-11-24] MEDS: LISINOPRIL 20 MG TABLET PO SCH (10:54)
[2024-11-24] MEDS ORDERED: SODIUM CHLORIDE 250 ML IV PRN (12:59)
[2024-11-24] MEDS: ACETAMINOPHEN 325 MG TABLET (FP) PO PRN (13:20)
[2024-11-24] MEDS: oxyCODONE HCL 5 MG TABLET PO PRN (20:38)
[2024-11-24 23:55] VITALS: RESP 20
[2024-11-25 07:12] VITALS: BP 141/69; PULSE 88; TEMP 97.7
== END 2024-11-25 14:45 | disposition home health service (06) | DRG 562 ==
LOC: JER 11:02 → JERBED 14:31 → OBSVTOIN 15:51 → J8W 17:26
PROVIDERS: ADMIT Internal Medicine; ATTEND Nurse Practitioner Family
PROC: 5A1D70Z Performance of Urinary Filtration, Intermittent, Less than 6 Hours Per Day (ICD-10-PCS; principal; 2024-11-23)
PROC: 5A1D70Z Performance of Urinary Filtration, Intermittent, Less than 6 Hours Per Day (ICD-10-PCS; 2024-11-24)
DX: S42.252A Displaced fracture of greater tuberosity of left humerus, initial encounter for closed fracture (principal); N18.6 End stage renal disease; I13.2 Hypertensive heart and chronic kidney disease with heart failure and with stage 5 chronic kidney disease, or end stage renal disease; I50.32 Chronic diastolic (congestive) heart failure; E87.70 Fluid overload, unspecified; I25.10 Atherosclerotic heart disease of native coronary artery without angina pectoris; N40.0 Benign prostatic hyperplasia without lower urinary tract symptoms; E11.22 Type 2 diabetes mellitus with diabetic chronic kidney disease; K44.9 Diaphragmatic hernia without obstruction or gangrene; Z99.2 Dependence on renal dialysis; K21.9 Gastro-esophageal reflux disease without esophagitis; K57.90 Diverticulosis of intestine, part unspecified, without perforation or abscess without bleeding; W01.0XXA Fall on same level from slipping, tripping and stumbling without subsequent striking against object, initial encounter; Y93.9 Activity, unspecified; Y92.098 Other place in other non-institutional residence as the place of occurrence of the external cause; Y99.9 Unspecified external cause status; Z95.5 Presence of coronary angioplasty implant and graft; Z89.422 Acquired absence of other left toe(s); Z89.421 Acquired absence of other right toe(s)
CPT/HCPCS: 11042; 36415; 71046-TC-FY; 73030-TC-LT-FY; 73060-TC-LT-FY; 80053; 82962; 85025; 85027; 87340; 93005; 93010; 99285-25; A6022; A6260; G0378; Q5106

== ENCOUNTER 2024-12-04 20:14 | Emergency (ER) | payer OTHER ==
[2024-12-04 20:21] VITALS: BP 164/88; PULSE 60; RESP 18; TEMP 98; BMI 24.3
[2024-12-04] MEDS ORDERED: oxyCODONE HCL 5 MG TABLET ONE (21:07)
[2024-12-04] MEDS: oxyCODONE HCL 5 MG TABLET PO ONE (21:09)
== END 2024-12-04 21:16 | disposition home or self-care (01) ==
LOC: JERFT 20:14
DX: M25.512 Pain in left shoulder (principal)
CPT/HCPCS: 99283-25

== ENCOUNTER 2024-12-14 09:54 | Inpatient (IN) | payer OTHER ==
[2024-12-14 12:26] LABS: ABSOLUTE IMMATURE GRANULOCYTES 0.04 x10^3/uL (0.0-0.031); BASOPHILS # 0.04 x10^3/uL (0.01-0.08); EOSINOPHIL % 3.8 % (0.8-7.0); EOSINOPHILS # 0.31 x10^3/uL (0.04-0.54); HEMATOCRIT 36.1 % (40.1-51.0); HEMOGLOBIN 11.1 g/dL (13.7-17.5); MCHC 30.7 g/dl (32.3-36.5); MEAN CELL VOLUME 90.3 fl (79.0-92.2); MEAN PLT VOLUME 9.1 fl (9.4-12.4); MONOCYTE # 0.67 x10^3/uL (0.30-0.82); MONOCYTE % 8.2 % (5.3-12.2); PLATELET COUNT 314 x10^3/uL (163-337); RDW 17.3 % (12.2-16.4)
[2024-12-14 12:37] LABS: INR 1.16 (0.83-1.09); PROTHROMBIN TIME (PATIENT) 12.6 SEC (9.7-13.0)
[2024-12-14 12:40] LABS: ACTIVATED PTT 24.2 SECONDS (25.2-36.5)
[2024-12-14 12:45] LABS: CHLORIDE 99 mmol/L (98-107); POTASSIUM 4.7 mmol/L (3.5-5.1); SODIUM 135 mmol/L (136-145)
[2024-12-14 12:47] LABS: CALCIUM 9.3 mg/dL (8.5-10.1)
[2024-12-14 12:48] LABS: ALBUMIN 2.9 g/dl (3.4-5.0); ANION GAP 11 mmol/L (4-13); BLOOD UREA NITROGEN 64.6 mg/dL (7-18); CO2 25 mmol/L (21-32); GLUCOSE,RANDOM 219 mg/dL (74-106)
[2024-12-14 12:51] LABS: PHOSPHOROUS 6.9 mg/dL (2.5-4.9); SGOT/AST 35 U/L (15-37); SGPT/ALT 27 U/L (13-61)
[2024-12-14 12:53] LABS: BILIRUBIN,TOTAL 0.5 mg/dL (0.2-1)
[2024-12-14 12:54] LABS: ALK PHOS 134 U/L (45-117)
[2024-12-14 12:55] LABS: CREATININE 7.9 mg/dL (0.55-1.3)
[2024-12-14] MEDS ORDERED: VANCOMYCIN 1,000 MG in DEXTROSE 5%-WATER - 250 ML IVPB ONE (13:39)
[2024-12-14] MEDS ORDERED: ACETAMINOPHEN 325 MG TABLET (FP) PO PRN (14:33)
[2024-12-14] MEDS ORDERED: SODIUM CHLORIDE 250 ML IV PRN (14:34)
[2024-12-14 15:29] LABS: ERYTHROCYTE SEDIMENTATION RATE 46 mm/hr (0-20)
[2024-12-14 17:49] VITALS: BMI 22.1
[2024-12-14] MEDS: INSULIN ASPART SLIDING SCALE (NOVOLOG) 1 VIAL SQ SCH (17:55)
[2024-12-14] MEDS: PIPERACILLIN/TAZOB 2.25 GM 2.25 GM in DEXTROSE 5%-WATER - 50 ML IVPB SCH (19:26)
[2024-12-14] MEDS: oxyCODONE HCL 5 MG TABLET PO PRN (19:36)
[2024-12-14] MEDS: VANCOMYCIN/WATER FOR INJ (PEG) 1,000 MG/200 ML BAG IVPB ONE (19:38)
[2024-12-14] MEDS: PIPERACILLIN/TAZOB 4.5 GM 4.5 GM in DEXTROSE 5%-WATER 100 ML IVPB ONE (19:41)
[2024-12-15 08:17] LABS: HEMATOCRIT 34.2 % (40.1-51.0); HEMOGLOBIN 10.6 g/dL (13.7-17.5); MEAN PLT VOLUME 9.1 fl (9.4-12.4); PLATELET COUNT 301 x10^3/uL (163-337); RDW 17.2 % (12.2-16.4)
[2024-12-15 08:38] LABS: POTASSIUM 3.6 mmol/L (3.5-5.1)
[2024-12-15 08:44] LABS: ALBUMIN 2.7 g/dl (3.4-5.0); CALCIUM 8.8 mg/dL (8.5-10.1); MAGNESIUM 1.9 mg/dL (1.8-2.4)
[2024-12-15 08:47] LABS: BILIRUBIN,TOTAL 0.6 mg/dL (0.2-1); CREATININE 5.6 mg/dL (0.55-1.3); TOT PROT 7.3 g/dl (6.4-8.2)
[2024-12-15] MEDS: HEPARIN NA (PORCINE) 5,000 UNITS/ML 1ML VIAL SQ SCH (10:54)
[2024-12-15] MEDS: LABETALOL HCL 200 MG, LABETALOL HCL 100 MG PO SCH (12:03)
[2024-12-15] MEDS: NIFEdipine E.R. 90 MG TABLET PO SCH (12:03)
[2024-12-15] MEDS ORDERED: SODIUM CHLORIDE 250 ML IV PRN (12:35)
[2024-12-15] MEDS: oxyCODONE HCL 5 MG TABLET PO PRN (13:58)
[2024-12-15] MEDS: LIDOCAINE 4% PATCH TP SCH (17:28)
[2024-12-15] MEDS: PIPERACILLIN/TAZOB 2.25 GM 2.25 GM in DEXTROSE 5%-WATER - 50 ML IVPB SCH (17:29)
[2024-12-15] MEDS: ATORVASTATIN CA 40 MG TABLET (FP) PO SCH (22:28)
[2024-12-16] MEDS: INSULIN GLARGINE (LANTUS) 100 UNITS/ML UNITS SQ SCH (06:27)
[2024-12-16] MEDS: LIDOCAINE PATCH REMOVAL MC SCH (06:27)
[2024-12-16] MEDS: TAMSULOSIN HCL 0.4 MG CAP PO SCH (08:08)
[2024-12-16 08:55] LABS: ABSOLUTE IMMATURE GRANULOCYTES 0.02 x10^3/uL (0.0-0.031); BASOPHILS # 0.06 x10^3/uL (0.01-0.08); EOSINOPHIL % 5.4 % (0.8-7.0); EOSINOPHILS # 0.33 x10^3/uL (0.04-0.54); HEMATOCRIT 33.5 % (40.1-51.0); HEMOGLOBIN 10.4 g/dL (13.7-17.5); MEAN CELL VOLUME 89.6 fl (79.0-92.2); MONOCYTE # 0.67 x10^3/uL (0.30-0.82); MONOCYTE % 10.9 % (5.3-12.2); PLATELET COUNT 303 x10^3/uL (163-337); RDW 17.2 % (12.2-16.4)
[2024-12-16 09:26] LABS: POTASSIUM 4.2 mmol/L (3.5-5.1)
[2024-12-16 09:27] LABS: BLOOD UREA NITROGEN 61.1 mg/dL (7-18); CALCIUM 9.2 mg/dL (8.5-10.1)
[2024-12-16 09:30] LABS: CREATININE 7.3 mg/dL (0.55-1.3)
[2024-12-16] MEDS: CLOPIDOGREL BISULFATE 75 MG TABLET (FP) PO SCH (13:17)
[2024-12-16] MEDS: PANTOPRAZOLE 40 MG TABLET PO SCH (13:17)
[2024-12-16] MEDS: VANCOMYCIN 1 GM PREMIX (F) 1 GM/200 ML BAG IVPB ONE (14:56)
[2024-12-16] MEDS ORDERED: LIDOCAINE 4% PATCH TP SCH (17:12)
[2024-12-16] MEDS: LIDOCAINE 4% PATCH TP ONE (18:07)
[2024-12-17] MEDS ORDERED: PIPERACILLIN/TAZOBACTAM 2.25 GM VIAL IVPB ONE (02:34)
[2024-12-17] MEDS: LIDOCAINE PATCH REMOVAL MC SCH (06:03)
[2024-12-17 09:13] LABS: ABSOLUTE IMMATURE GRANULOCYTES 0.02 x10^3/uL (0.0-0.031); BASOPHILS # 0.05 x10^3/uL (0.01-0.08); EOSINOPHIL % 6.4 % (0.8-7.0); EOSINOPHILS # 0.37 x10^3/uL (0.04-0.54); HEMATOCRIT 33.4 % (40.1-51.0); HEMOGLOBIN 10.2 g/dL (13.7-17.5); MCHC 30.5 g/dl (32.3-36.5); MEAN CELL VOLUME 90.5 fl (79.0-92.2); MEAN PLT VOLUME 9.3 fl (9.4-12.4); MONOCYTE # 0.58 x10^3/uL (0.30-0.82); MONOCYTE % 10.1 % (5.3-12.2); PLATELET COUNT 326 x10^3/uL (163-337); RDW 17.2 % (12.2-16.4)
[2024-12-17 09:33] LABS: POTASSIUM 3.8 mmol/L (3.5-5.1)
[2024-12-17 09:40] LABS: BLOOD UREA NITROGEN 43.7 mg/dL (7-18); CALCIUM 9.1 mg/dL (8.5-10.1)
[2024-12-17 09:43] LABS: CREATININE 5.4 mg/dL (0.55-1.3)
[2024-12-18] MEDS: LABETALOL HCL 200 MG, LABETALOL HCL 100 MG PO SCH (06:38)
[2024-12-18] MEDS ORDERED: SODIUM CHLORIDE 250 ML IV PRN (09:03)
[2024-12-19] MEDS: LORATADINE 10 MG TABLET PO ONE (06:24)
[2024-12-19] MEDS: LIDOCAINE 4% PATCH TP SCH (09:16)
[2024-12-19] MEDS: LIDOCAINE PATCH REMOVAL MC SCH (21:16)
[2024-12-20 08:19] LABS: HEMATOCRIT 33.1 % (40.1-51.0); MCHC 30.2 g/dl (32.3-36.5); MEAN CELL VOLUME 90.7 fl (79.0-92.2); PLATELET COUNT 316 x10^3/uL (163-337); RDW 16.9 % (12.2-16.4)
[2024-12-20 08:35] LABS: POTASSIUM 4.1 mmol/L (3.5-5.1)
[2024-12-20 08:36] LABS: BLOOD UREA NITROGEN 48.1 mg/dL (7-18)
[2024-12-20 08:37] LABS: MAGNESIUM 1.9 mg/dL (1.8-2.4)
[2024-12-20 08:40] LABS: CREATININE 7.3 mg/dL (0.55-1.3)
[2024-12-20 09:47] VITALS: RESP 18
[2024-12-20] MEDS: oxyCODONE HCL 5 MG TABLET PO PRN (09:54)
[2024-12-20] MEDS ORDERED: INSULIN ASPART SLIDING SCALE (NOVOLOG) 1 VIAL SQ ONE (11:35)
[2024-12-20] MEDS ORDERED: SODIUM CHLORIDE 250 ML IV PRN (15:24)
[2024-12-20 15:34] VITALS: BP 163/84; PULSE 89; TEMP 98.6
[2024-12-21] MEDS ORDERED: EPOETIN ALFA-EPBX 10,000 UNIT/ML VIAL IVPUSH ONE (15:24)
== END 2024-12-20 17:27 | disposition home health service (06) | DRG 638 ==
LOC: JER 09:54 → JERBED 11:18 → J5S 17:11
PROVIDERS: ATTEND Internal Medicine
PROC: 5A1D70Z Performance of Urinary Filtration, Intermittent, Less than 6 Hours Per Day (ICD-10-PCS; principal; 2024-12-14)
DX: E11.69 Type 2 diabetes mellitus with other specified complication (principal); I13.2 Hypertensive heart and chronic kidney disease with heart failure and with stage 5 chronic kidney disease, or end stage renal disease; M86.172 Other acute osteomyelitis, left ankle and foot; L03.116 Cellulitis of left lower limb; I25.10 Atherosclerotic heart disease of native coronary artery without angina pectoris; N40.0 Benign prostatic hyperplasia without lower urinary tract symptoms; E11.22 Type 2 diabetes mellitus with diabetic chronic kidney disease; N18.6 End stage renal disease; Z99.2 Dependence on renal dialysis; I44.0 Atrioventricular block, first degree; D64.9 Anemia, unspecified; E11.621 Type 2 diabetes mellitus with foot ulcer; L97.529 Non-pressure chronic ulcer of other part of left foot with unspecified severity; E11.42 Type 2 diabetes mellitus with diabetic polyneuropathy; E11.51 Type 2 diabetes mellitus with diabetic peripheral angiopathy without gangrene; I50.9 Heart failure, unspecified; D63.1 Anemia in chronic kidney disease
CPT/HCPCS: 36415; 71045-TC-FY; 73030-TC-LT-FY; 73610-TC-LT-FY; 73630-TC-LT; 80048; 80053; 82962; 83735; 84100; 85025; 85027; 85610; 85651; 85730; 86140; 87040; 87070; 87075; 87205; 87340; 88305-TC; 88311-TC; 93005; 93010; 99285-25

== ENCOUNTER 2025-01-28 23:02 | Observation (INO) | payer OTHER ==
[2025-01-28 23:16] VITALS: BMI 24.4
[2025-01-28] MEDS ORDERED: ACETAMINOPHEN INJECTION 100 ML ONE (23:53)
[2025-01-28] MEDS ORDERED: ONDANSETRON 4 MG/2 ML VIAL ONE (23:54)
[2025-01-28] MEDS ORDERED: FAMOTIDINE 20 MG/50 ML IVPB 20 MG/50 ML MG IVPB ONE (23:54)
[2025-01-29] MEDS: FAMOTIDINE 20 MG/50 ML IVPB 20 MG/50 ML MG IVPB ONE (00:12)
[2025-01-29] MEDS: ONDANSETRON 4 MG/2 ML VIAL IVPB ONE (00:12)
[2025-01-29] MEDS: ACETAMINOPHEN 1000 MG/100 ML BAG IVPB ONE (00:12)
[2025-01-29 00:13] LABS: ABSOLUTE IMMATURE GRANULOCYTES 0.02 x10^3/uL (0.0-0.031); BASOPHILS # 0.05 x10^3/uL (0.01-0.08); EOSINOPHIL % 4.4 % (0.8-7.0); EOSINOPHILS # 0.29 x10^3/uL (0.04-0.54); MCHC 30.1 g/dl (32.3-36.5); MEAN CELL VOLUME 93.4 fl (79.0-92.2); MEAN PLT VOLUME 8.8 fl (9.4-12.4); MONOCYTE # 0.52 x10^3/uL (0.30-0.82); MONOCYTE % 8.0 % (5.3-12.2); RDW 17.3 % (12.2-16.4)
[2025-01-29 00:25] LABS: INR 1.19 (0.83-1.09); PROTHROMBIN TIME (PATIENT) 13.1 SEC (9.7-13.0)
[2025-01-29 00:28] LABS: ACTIVATED PTT 30.7 SECONDS (25.2-36.5)
[2025-01-29 00:35] LABS: GLUCOSE,RANDOM 239.0 mg/dL (74-106)
[2025-01-29 00:36] LABS: CO2 35.0 mmol/L (21-32)
[2025-01-29 00:38] LABS: CREATININE 6.0 mg/dL (0.55-1.3); SGPT/ALT 8.0 U/L (13-61)
[2025-01-29 00:39] LABS: SGOT/AST 17.0 U/L (15-37)
[2025-01-29 00:40] LABS: TOT PROT 8.6 g/dl (6.4-8.2)
[2025-01-29 00:41] LABS: ALK PHOS 132.0 U/L (45-117)
[2025-01-29 01:50] LABS: HIV INTERPRETATION NEGATIVE (NEGATIVE)
[2025-01-29 01:51] LABS: HCV DIAGNOSTIC IN-HOUSE W/RFLX NON-REACTIVE (NONREACTIVE)
[2025-01-29] MEDS ORDERED: MAG HYDROX/AL HYDROX/SIMETH 30 ML UNIT-DOSE CUP PO PRN (09:09)
[2025-01-29] MEDS ORDERED: ACETAMINOPHEN 500 MG TABLET (FP) PO PRN (09:10)
[2025-01-29] MEDS ORDERED: ONDANSETRON 4 MG/2 ML VIAL IVPUSH PRN (09:11)
[2025-01-29] MEDS ORDERED: LABETALOL HCL 100 MG TABLET (FP) ONE (10:12)
[2025-01-29] MEDS ORDERED: PANTOPRAZOLE 40 MG TABLET PO ONE (10:12)
[2025-01-29] MEDS ORDERED: NIFEdipine E.R. 30 MG TABLET PO ONE (10:12)
[2025-01-29] MEDS ORDERED: CLOPIDOGREL BISULFATE 75 MG TABLET (FP) ONE (10:12)
[2025-01-29] MEDS ORDERED: TAMSULOSIN HCL 0.4 MG CAP ONE (10:13)
[2025-01-29] MEDS ORDERED: HEPARIN NA (PORCINE) 5,000 UNITS/ML 1ML VIAL ONE (10:13)
[2025-01-29] MEDS: TAMSULOSIN HCL 0.4 MG CAP PO SCH (10:16)
[2025-01-29] MEDS: LABETALOL HCL 100 MG TABLET (FP) PO SCH (10:16)
[2025-01-29] MEDS: INSULIN GLARGINE (LANTUS) 100 UNITS/ML UNITS SQ SCH (10:17)
[2025-01-29] MEDS: NIFEdipine E.R. 90 MG TABLET PO SCH (10:17)
[2025-01-29] MEDS: CLOPIDOGREL BISULFATE 75 MG TABLET (FP) PO SCH (10:17)
[2025-01-29] MEDS: HEPARIN NA (PORCINE) 5,000 UNITS/ML 1ML VIAL SQ SCH (10:17)
[2025-01-29] MEDS: PANTOPRAZOLE 40 MG TABLET PO SCH (10:17)
[2025-01-29] MEDS ORDERED: SODIUM CHLORIDE 250 ML IV PRN (15:50)
[2025-01-29] MEDS: INSULIN ASPART SLIDING SCALE (NOVOLOG) 1 VIAL SQ SCH (18:55)
[2025-01-29 18:58] LABS: HEPATITIS B SURF AG NON-MATERN NON-REACTIVE (NONREACTIVE)
[2025-01-29] MEDS: ATORVASTATIN CA 40 MG TABLET (FP) PO SCH (21:47)
[2025-01-30 08:29] LABS: ABSOLUTE IMMATURE GRANULOCYTES 0.02 x10^3/uL (0.0-0.031); BASOPHILS # 0.06 x10^3/uL (0.01-0.08); EOSINOPHIL % 6.0 % (0.8-7.0); EOSINOPHILS # 0.41 x10^3/uL (0.04-0.54); MCHC 29.9 g/dl (32.3-36.5); MEAN CELL VOLUME 95.1 fl (79.0-92.2); MEAN PLT VOLUME 8.9 fl (9.4-12.4); MONOCYTE # 0.59 x10^3/uL (0.30-0.82); MONOCYTE % 8.6 % (5.3-12.2); RDW 17.1 % (12.2-16.4)
[2025-01-30 08:55] LABS: CO2 34.0 mmol/L (21-32)
[2025-01-30 08:56] LABS: GLUCOSE,RANDOM 208.0 mg/dL (74-106)
[2025-01-30 08:59] LABS: CREATININE 5.0 mg/dL (0.55-1.3)
[2025-01-30] MEDS: LABETALOL HCL 100 MG TABLET (FP) PO ONE (14:02)
[2025-01-30 20:51] VITALS: BP 169/81; PULSE 97; RESP 18; TEMP 98.1
== END 2025-01-30 20:20 | disposition home or self-care (01) ==
LOC: JER 23:02 → JERBED 01-29 02:39 → INTOOBSV 01-29 02:39 → J6S 01-29 15:58
PROVIDERS: ADMIT Internal Medicine; ATTEND Internal Medicine
DX: R10.13 Epigastric pain (principal); R11.2 Nausea with vomiting, unspecified; K21.9 Gastro-esophageal reflux disease without esophagitis; I13.2 Hypertensive heart and chronic kidney disease with heart failure and with stage 5 chronic kidney disease, or end stage renal disease; E11.22 Type 2 diabetes mellitus with diabetic chronic kidney disease; N18.6 End stage renal disease; I50.9 Heart failure, unspecified; E11.621 Type 2 diabetes mellitus with foot ulcer; L97.429 Non-pressure chronic ulcer of left heel and midfoot with unspecified severity; M86.672 Other chronic osteomyelitis, left ankle and foot; I25.10 Atherosclerotic heart disease of native coronary artery without angina pectoris; K44.9 Diaphragmatic hernia without obstruction or gangrene; D63.1 Anemia in chronic kidney disease; E78.5 Hyperlipidemia, unspecified; J90 Pleural effusion, not elsewhere classified; Z89.411 Acquired absence of right great toe; Z89.421 Acquired absence of other right toe(s); Z89.011 Acquired absence of right thumb; Z99.2 Dependence on renal dialysis; Z95.5 Presence of coronary angioplasty implant and graft; Z79.4 Long term (current) use of insulin
CPT/HCPCS: 96372; 96374; 96375; G0257; 36415; 71046-TC-FY; 74177-TC; 80048; 80053; 82962; 83605; 83690; 84484; 85025; 85610; 85730; 86704; 86803; 86850; 86900; 86901; 87340; 87389; 87517; 93005; 93010; 99285-25; G0378; Q9967

== ENCOUNTER 2025-02-10 00:50 | Inpatient (IN) | payer OTHER ==
[2025-02-10] MEDS ORDERED: ONDANSETRON 4 MG/2 ML VIAL ONE (01:47)
[2025-02-10] MEDS ORDERED: MAGNESIUM SULFATE IN WATER 2 GM/50 ML IVPB IVPB ONE (02:20)
[2025-02-10] MEDS: SODIUM CHLORIDE 0.9% 500 ML INFUS.BAG IV ONE (02:21)
[2025-02-10] MEDS: ONDANSETRON 4 MG/2 ML VIAL IVPB ONE (02:21)
[2025-02-10] MEDS: MAGNESIUM SULFATE IN WATER 2 GM/50 ML IVPB IVPB ONE (02:21)
[2025-02-10 02:24] LABS: ABSOLUTE IMMATURE GRANULOCYTES 0.02 x10^3/uL (0.0-0.031); BASOPHILS # 0.05 x10^3/uL (0.01-0.08); EOSINOPHIL % 1.9 % (0.8-7.0); EOSINOPHILS # 0.16 x10^3/uL (0.04-0.54); MCHC 31.6 g/dl (32.3-36.5); MEAN CELL VOLUME 92.4 fl (79.0-92.2); MEAN PLT VOLUME 9.3 fl (9.4-12.4); MONOCYTE # 0.61 x10^3/uL (0.30-0.82); MONOCYTE % 7.3 % (5.3-12.2); RDW 17.1 % (12.2-16.4)
[2025-02-10 02:54] LABS: CO2 32.0 mmol/L (21-32); GLUCOSE,RANDOM 308.0 mg/dL (74-106)
[2025-02-10 02:57] LABS: CREATININE 6.5 mg/dL (0.55-1.3); SGOT/AST 19.0 U/L (15-37); SGPT/ALT 18.0 U/L (13-61)
[2025-02-10 02:58] LABS: TOT PROT 8.3 g/dl (6.4-8.2)
[2025-02-10 03:00] LABS: ALK PHOS 126.0 U/L (45-117)
[2025-02-10] MEDS ORDERED: NIFEdipine E.R 60 MG TABLET PO ONE (06:19)
[2025-02-10] MEDS ORDERED: HEPARIN NA (PORCINE) 5,000 UNITS/ML 1ML VIAL ONE (06:19)
[2025-02-10] MEDS ORDERED: INSULIN GLARGINE (LANTUS) 100 UNITS/ML UNITS SQ ONE (06:19)
[2025-02-10] MEDS ORDERED: NIFEdipine E.R. 30 MG TABLET PO ONE (06:19)
[2025-02-10] MEDS: INSULIN GLARGINE (LANTUS) 100 UNITS/ML UNITS SQ ONE (06:25)
[2025-02-10] MEDS: HEPARIN NA (PORCINE) 5,000 UNITS/ML 1ML VIAL SQ SCH (06:25)
[2025-02-10] MEDS ORDERED: LABETALOL HCL 200 MG TABLET (FP) ONE (06:30)
[2025-02-10] MEDS ORDERED: LABETALOL HCL 100 MG TABLET (FP) ONE (06:30)
[2025-02-10] MEDS: SODIUM CHLORIDE 1,000 ML IV SCH (06:32)
[2025-02-10] MEDS: LABETALOL HCL 100 MG TABLET (FP) PO ONE (06:33)
[2025-02-10] MEDS: NIFEdipine E.R. 30 MG TABLET PO ONE (06:33)
[2025-02-10] MEDS: INSULIN ASPART SLIDING SCALE (NOVOLOG) 1 VIAL SQ SCH (08:26)
[2025-02-10] MEDS: LIDOCAINE 4% PATCH TP SCH (09:33)
[2025-02-10] MEDS: CLOPIDOGREL BISULFATE 75 MG TABLET (FP) PO SCH (09:33)
[2025-02-10] MEDS: PANTOPRAZOLE 40 MG TABLET PO SCH (09:33)
[2025-02-10] MEDS: TAMSULOSIN HCL 0.4 MG CAP PO SCH (09:33)
[2025-02-10] MEDS ORDERED: PATIENT'S OWN MEDICATION (NON-FORMULARY) (Insulin Glargine,Hum.Rec.Anlog [Basaglar Kwikpen SQ SCH (10:00)
[2025-02-10] MEDS ORDERED: NIFEdipine E.R. 90 MG TABLET PO SCH ×2 (10:00)
[2025-02-10] MEDS ORDERED: LABETALOL HCL 100 MG TABLET (FP) PO SCH ×2 (10:00)
[2025-02-10] MEDS: TRIMETHOBENZAMIDE HCL 200MG/2ML INJ IM PRN (11:39)
[2025-02-10] MEDS ORDERED: SODIUM CHLORIDE 250 ML IV PRN (12:08)
[2025-02-10] MEDS: COLLAGENASE CLOSTRIDIUM HIST. 30 GRAMS TUBE TP SCH (17:35)
[2025-02-10] MEDS: ACETAMINOPHEN 1000 MG/100 ML BAG IVPB PRN (17:35)
[2025-02-10] MEDS: LABETALOL HCL 100 MG TABLET (FP) PO SCH (21:17)
[2025-02-10] MEDS: ATORVASTATIN CA 40 MG TABLET (FP) PO SCH (21:18)
[2025-02-10] MEDS: LIDOCAINE PATCH REMOVAL MC SCH (21:23)
[2025-02-10] MEDS: INSULIN GLARGINE (LANTUS) 100 UNITS/ML UNITS SQ SCH (22:27)
[2025-02-11] MEDS: MAG HYDROX/AL HYDROX/SIMETH 30 ML UNIT-DOSE CUP PO ONE (00:45)
[2025-02-11] MEDS: MELATONIN 5 MG TABLETS PO ONE (00:45)
[2025-02-11 07:09] LABS: ABSOLUTE IMMATURE GRANULOCYTES 0.03 x10^3/uL (0.0-0.031); BASOPHILS # 0.06 x10^3/uL (0.01-0.08); EOSINOPHIL % 2.2 % (0.8-7.0); EOSINOPHILS # 0.20 x10^3/uL (0.04-0.54); MCHC 30.3 g/dl (32.3-36.5); MEAN CELL VOLUME 94.0 fl (79.0-92.2); MEAN PLT VOLUME 9.2 fl (9.4-12.4); MONOCYTE # 0.62 x10^3/uL (0.30-0.82); MONOCYTE % 6.8 % (5.3-12.2); RDW 17.2 % (12.2-16.4)
[2025-02-11 07:42] LABS: CO2 32.0 mmol/L (21-32); GLUCOSE,RANDOM 196.0 mg/dL (74-106)
[2025-02-11 07:45] LABS: CREATININE 4.9 mg/dL (0.55-1.3); SGOT/AST 27.0 U/L (15-37); SGPT/ALT 20.0 U/L (13-61)
[2025-02-11 07:46] LABS: TOT PROT 8.1 g/dl (6.4-8.2)
[2025-02-11 07:48] LABS: ALK PHOS 123.0 U/L (45-117)
[2025-02-11] MEDS: NIFEdipine E.R. 90 MG TABLET PO SCH (09:13)
[2025-02-11] MEDS: BENZOCAINE/MENTHOL 1 EACH LOZENGE MM PRN (22:53)
[2025-02-12] MEDS: MELATONIN 5 MG TABLETS PO PRN (02:31)
[2025-02-12 06:39] LABS: ABSOLUTE IMMATURE GRANULOCYTES 0.02 x10^3/uL (0.0-0.031); BASOPHILS # 0.06 x10^3/uL (0.01-0.08); EOSINOPHIL % 5.2 % (0.8-7.0); EOSINOPHILS # 0.36 x10^3/uL (0.04-0.54); MCHC 31.3 g/dl (32.3-36.5); MEAN CELL VOLUME 92.6 fl (79.0-92.2); MEAN PLT VOLUME 9.0 fl (9.4-12.4); MONOCYTE # 0.56 x10^3/uL (0.30-0.82); MONOCYTE % 8.1 % (5.3-12.2); RDW 16.6 % (12.2-16.4)
[2025-02-12 07:21] LABS: CO2 30.0 mmol/L (21-32); GLUCOSE,RANDOM 135.0 mg/dL (74-106)
[2025-02-12 07:23] LABS: SGOT/AST 18.0 U/L (15-37); SGPT/ALT 15.0 U/L (13-61)
[2025-02-12 07:24] LABS: CREATININE 6.5 mg/dL (0.55-1.3); TOT PROT 7.3 g/dl (6.4-8.2)
[2025-02-12 07:26] LABS: ALK PHOS 113.0 U/L (45-117)
[2025-02-12] MEDS: INSULIN ASPART SLIDING SCALE (NOVOLOG) 1 VIAL SQ SCH (11:00)
[2025-02-12] MEDS: POTASSIUM CHLORIDE TABS 20 MEQ TABLET.ER (FP) PO ONE (12:53)
[2025-02-12] MEDS ORDERED: SODIUM CHLORIDE 250 ML IV PRN (13:08)
[2025-02-12] MEDS: AMINO ACIDS/PROTEIN HYDROLYS 30 ML LIQUID.PKT PO SCH (15:37)
[2025-02-13 07:36] LABS: CO2 30.0 mmol/L (21-32); GLUCOSE,RANDOM 146.0 mg/dL (74-106)
[2025-02-13 07:39] LABS: CREATININE 5.7 mg/dL (0.55-1.3)
[2025-02-14 13:17] LABS: MCHC 29.9 g/dl (32.3-36.5); MEAN CELL VOLUME 94.7 fl (79.0-92.2); MEAN PLT VOLUME 9.6 fl (9.4-12.4); RDW 16.7 % (12.2-16.4)
[2025-02-14] MEDS ORDERED: TRIMETHOBENZAMIDE HCL 200MG/2ML INJ IM PRN (16:24)
[2025-02-14] MEDS ORDERED: BENZOCAINE/MENTHOL 1 EACH LOZENGE MM PRN (16:24)
[2025-02-14] MEDS: INSULIN ASPART SLIDING SCALE (NOVOLOG) 1 VIAL SQ SCH (17:56)
[2025-02-14] MEDS: MELATONIN 5 MG TABLETS PO PRN (22:46)
[2025-02-14] MEDS: LABETALOL HCL 100 MG TABLET (FP) PO SCH (22:47)
[2025-02-14] MEDS: INSULIN GLARGINE (LANTUS) 100 UNITS/ML UNITS SQ SCH (22:47)
[2025-02-14] MEDS: ATORVASTATIN CA 40 MG TABLET (FP) PO SCH (22:47)
[2025-02-14] MEDS: HEPARIN NA (PORCINE) 5,000 UNITS/ML 1ML VIAL SQ SCH (22:48)
[2025-02-14] MEDS: LIDOCAINE PATCH REMOVAL MC SCH (22:48)
[2025-02-14] MEDS: ACETAMINOPHEN 1000 MG/100 ML BAG IVPB PRN (23:02)
[2025-02-14] MEDS: BENZOCAINE/MENTH/CETYLPYRD CL 1 EACH LOZENGE MM PRN (23:05)
[2025-02-15] MEDS: morphine CARPU-JECT 2 MG/1 ML DISP.SYRIN IM ONE (01:43)
[2025-02-15] MEDS: PANTOPRAZOLE 40 MG TABLET PO SCH (06:57)
[2025-02-15 08:58] LABS: MCHC 30.1 g/dl (32.3-36.5); MEAN CELL VOLUME 93.6 fl (79.0-92.2); MEAN PLT VOLUME 9.6 fl (9.4-12.4); RDW 16.5 % (12.2-16.4)
[2025-02-15] MEDS ORDERED: SODIUM CHLORIDE 250 ML IV PRN (09:00)
[2025-02-15] MEDS: TAMSULOSIN HCL 0.4 MG CAP PO SCH (09:12)
[2025-02-15 10:10] LABS: GLUCOSE,RANDOM 138 mg/dL (74-106); TOT PROT 8.5 g/dl (6.4-8.2)
[2025-02-15] MEDS: LIDOCAINE 4% PATCH TP SCH (10:10)
[2025-02-15] MEDS: NIFEdipine E.R. 90 MG TABLET PO SCH (10:11)
[2025-02-15] MEDS: COLLAGENASE CLOSTRIDIUM HIST. 30 GRAMS TUBE TP SCH (10:11)
[2025-02-15] MEDS: CLOPIDOGREL BISULFATE 75 MG TABLET (FP) PO SCH (10:11)
[2025-02-15 10:12] LABS: CO2 23 mmol/L (21-32)
[2025-02-15 10:13] LABS: ALK PHOS 161 U/L (40-150)
[2025-02-15 10:16] LABS: SGOT/AST 23 U/L (5-34); SGPT/ALT 11 U/L (0-55)
[2025-02-15] MEDS: EPOETIN ALFA-EPBX 4,000 UNIT/ML VIAL SQ ONE (10:46)
[2025-02-15 11:24] LABS: CREATININE 8.37 mg/dL (0.55-1.3)
[2025-02-15] MEDS: AMINO ACIDS/PROTEIN HYDROLYS 30 ML LIQUID.PKT PO SCH (16:06)
[2025-02-15] MEDS: INSULIN GLARGINE (LANTUS) 100 UNITS/ML UNITS SQ SCH (21:41)
[2025-02-16 08:50] LABS: ABSOLUTE IMMATURE GRANULOCYTES 0.03 x10^3/uL (0.0-0.031); BASOPHILS # 0.06 x10^3/uL (0.01-0.08); EOSINOPHIL % 6.0 % (0.8-7.0); EOSINOPHILS # 0.38 x10^3/uL (0.04-0.54); MCHC 29.9 g/dl (32.3-36.5); MEAN CELL VOLUME 94.9 fl (79.0-92.2); MEAN PLT VOLUME 9.4 fl (9.4-12.4); MONOCYTE # 0.68 x10^3/uL (0.30-0.82); MONOCYTE % 10.8 % (5.3-12.2); RDW 16.5 % (12.2-16.4)
[2025-02-16 10:14] LABS: GLUCOSE,RANDOM 155.0 mg/dL (74-106)
[2025-02-16 10:15] LABS: TOT PROT 6.9 g/dl (6.4-8.2)
[2025-02-16 10:16] LABS: CO2 27.0 mmol/L (21-32)
[2025-02-16 10:20] LABS: SGOT/AST 20.0 U/L (5-34); SGPT/ALT 14.0 U/L (0-55)
[2025-02-16 10:21] LABS: CREATININE 5.56 mg/dL (0.55-1.3)
[2025-02-16 11:00] LABS: ALK PHOS 110.0 U/L (40-150)
[2025-02-17 07:08] LABS: MCHC 30.9 g/dl (32.3-36.5); MEAN CELL VOLUME 94.6 fl (79.0-92.2); MEAN PLT VOLUME 9.2 fl (9.4-12.4); RDW 16.4 % (12.2-16.4)
[2025-02-17] MEDS ORDERED: SODIUM CHLORIDE 250 ML IV PRN (14:35)
[2025-02-17 14:58] VITALS: BMI 23.2
[2025-02-17] MEDS: EPOETIN ALFA-EPBX 10,000 UNIT/ML VIAL SQ ONE (16:40)
[2025-02-17] MEDS ORDERED: BENZOCAINE/MENTH/CETYLPYRD CL 1 EACH LOZENGE MM PRN ×2 (21:03→21:05)
[2025-02-18 00:24] LABS: ALK PHOS 103.0 U/L (40-150); CO2 19.0 mmol/L (21-32); CREATININE 7.35 mg/dL (0.55-1.3); GLUCOSE,RANDOM 106.0 mg/dL (74-106); SGOT/AST 25.0 U/L (5-34); SGPT/ALT 21.0 U/L (0-55); TOT PROT 6.9 g/dl (6.4-8.2)
[2025-02-18 08:06] LABS: ABSOLUTE IMMATURE GRANULOCYTES 0.03 x10^3/uL (0.0-0.031); BASOPHILS # 0.07 x10^3/uL (0.01-0.08); EOSINOPHIL % 7.1 % (0.8-7.0); EOSINOPHILS # 0.48 x10^3/uL (0.04-0.54); IMMATURE PLATELET FRACTION # 7.20 x10^3/uL; MCHC 30.5 g/dl (32.3-36.5); MEAN CELL VOLUME 95.3 fl (79.0-92.2); MEAN PLT VOLUME 10.6 fl (9.4-12.4); MONOCYTE # 0.74 x10^3/uL (0.30-0.82); MONOCYTE % 10.9 % (5.3-12.2); RDW 16.1 % (12.2-16.4)
[2025-02-18 08:18] LABS: GLUCOSE,RANDOM 116.0 mg/dL (74-106)
[2025-02-18 08:20] LABS: CO2 27.0 mmol/L (21-32)
[2025-02-18 08:24] LABS: CREATININE 5.1 mg/dL (0.55-1.3)
[2025-02-18 09:37] VITALS: TEMP 98.2
[2025-02-18 14:35] VITALS: BP 123/55; PULSE 69; RESP 16
== END 2025-02-18 16:31 | disposition home health service (06) | DRG 299 ==
LOC: JER 00:50 → JERBED 04:25 → J4W 07:42 → OBSVTOIN 02-11 13:16 → J8W 02-14 16:00
PROVIDERS: ADMIT Hospitalist; ATTEND Student in an Organized Health Care Education/Training Program
PROC: 5A1D70Z Performance of Urinary Filtration, Intermittent, Less than 6 Hours Per Day (ICD-10-PCS; principal; 2025-02-17)
DX: E11.52 Type 2 diabetes mellitus with diabetic peripheral angiopathy with gangrene (principal); N18.6 End stage renal disease; I13.2 Hypertensive heart and chronic kidney disease with heart failure and with stage 5 chronic kidney disease, or end stage renal disease; I50.32 Chronic diastolic (congestive) heart failure; J90 Pleural effusion, not elsewhere classified; E11.43 Type 2 diabetes mellitus with diabetic autonomic (poly)neuropathy; K31.84 Gastroparesis; E78.5 Hyperlipidemia, unspecified; K21.00 Gastro-esophageal reflux disease with esophagitis, without bleeding; I25.10 Atherosclerotic heart disease of native coronary artery without angina pectoris; Z95.5 Presence of coronary angioplasty implant and graft; D63.1 Anemia in chronic kidney disease; E11.22 Type 2 diabetes mellitus with diabetic chronic kidney disease; Z99.2 Dependence on renal dialysis; E11.51 Type 2 diabetes mellitus with diabetic peripheral angiopathy without gangrene; E11.621 Type 2 diabetes mellitus with foot ulcer; L97.529 Non-pressure chronic ulcer of other part of left foot with unspecified severity; N40.0 Benign prostatic hyperplasia without lower urinary tract symptoms; K80.20 Calculus of gallbladder without cholecystitis without obstruction; E11.622 Type 2 diabetes mellitus with other skin ulcer; I16.0 Hypertensive urgency; E11.69 Type 2 diabetes mellitus with other specified complication; K44.9 Diaphragmatic hernia without obstruction or gangrene
CPT/HCPCS: 36415; 71045-TC-FY; 73718-TC-RT; 74176-TC; 80048; 80053; 82962; 83605; 83690; 83735; 84100; 84484; 85025; 85027; 87081; 93005; 93010; 93925-TC; 97116-GP; 97161-GP; 99285-25; G0378; Q5106